=== PATIENT | male | born 1955 | race Caucasian/White ===

== ENCOUNTER 2020-03-24 13:36 | Outpatient (REF) | payer BC, SELFPAY ==
--- NOTE | 2020-03-24 14:02 | XR_ITS ---
EXAMINATION: XR THORACOLUMBAR SPINE CLINICAL INFORMATION: Back pain and scoliosis. COMPARISON: Cervical spine radiographs dated 05/28/2019. TECHNIQUE: Frontal, lateral and swimmer's views of the thoracic spine are submitted. FINDINGS: There is a marked lower thoracic dextroscoliosis. There is an age-indeterminate mild compression fracture of the T10 vertebral body. There is moderately severe disc space narrowing at C5-C6, and marked disc space narrowing is seen at C6-C7. There is disc space narrowing at T7-T8 and T10-T11. No acute fracture or spondylolisthesis is seen. There is multi-level cervical and thoracic spondylosis. The posterior elements are intact. The soft tissue planes are unremarkable. IMPRESSION: 1. There is a marked lower thoracic dextroscoliosis. 2. There is an age-indeterminate mild compression fracture of the T10 vertebral body. 3. There is multi-level cervical and thoracic degenerative disc disease and spondylosis, as above.
--- NOTE | 2020-03-24 14:04 | XR_ITS ---
EXAMINATION: XR LUMBOSACRAL SPINE WITH OBLIQUES CLINICAL INFORMATION: Low back pain. COMPARISON: None TECHNIQUE: AP, both oblique, and lateral views of the lumbar spine. Lateral view of the lumbosacral junction. Images were done (. FINDINGS: There is Roto dextroscoliosis dorsal lumbar spine. The vertebral heights and alignment is normal. There is moderate bridging osteophytes L2-L3, L3-L4 disc levels. No lytic process seen. There is no visible acute fracture seen. No lytic process. The soft tissues are normal. IMPRESSION: Degenerative disc changes with moderate ventral spondylosis. No visible acute fracture or dislocation.
== END 2020-03-24 13:37 | disposition home or self-care (01) ==
LOC: HO.XRAY 13:36
PROVIDERS: PCP Internal Medicine; Visit Provider Chiropractor
DX: G89.29 Other chronic pain (principal); M54.6 Pain in thoracic spine; M54.5 Low back pain; M41.9 Scoliosis, unspecified
CPT/HCPCS: 72070; 72110

== ENCOUNTER 2020-04-26 07:53 | Outpatient (REF) | payer BC, SELFPAY ==
[2020-04-26 09:02] LABS: MANUAL DIFF FLAG NO
[2020-04-26 09:08] LABS: Basophils Absolute Auto 0.1 X10*3/uL (0.0-0.2); Eosinophils Absolute Auto 0.3 X10*3/uL (0.0-0.4); Eosinophils Percent Auto 5.3 % (0-4); Hematocrit 44.7 % (42-52); Hemoglobin 14.6 g/dl (14.0-18.0); Imm Gran Abs Auto 0.01 X10*3/uL (0.00-0.03); Imm Gran Pct Auto 0.2 % (0.0-0.4); Lymphocytes Absolute Auto 0.9 X10*3/uL (1.2-4.9); Lymphocytes Percent Auto 17.6 % (20-40); Mean Corpuscular HGB Conc 32.7 g/dl (31.0-36.0); Mean Corpuscular Hemoglobin 30.1 pg (27.0-33.0); Mean Corpuscular Volume 92.2 fL (80-98); Mean Platelet Volume 9.8 fL (9.4-12.4); Monocytes Absolute Auto 0.4 X10*3/uL (0.1-1.2); Monocytes Percent Auto 8.1 % (2-11); Neutrophils Absolute Auto 3.3 X10*3/uL (2.0-8.3); Neutrophils Percent Auto 67.8 % (45-73); Platelet Count 207 X10*3/uL (160-400); Red Blood Count 4.85 X10*6/uL (4.60-5.80); Red Cell Distribution Width 13.3 % (11.0-16.0); White Blood Count 4.9 X10*3/uL (4.8-10.8)
[2020-04-26 09:36] LABS: Alanine Aminotransferase 23 U/L (0-40); Alkaline Phosphatase 86 U/L (39-117); Anion Gap 10 (12-20); Aspartate Amino Transferase 17 U/L (5-37); Blood Urea Nitrogen 16 mg/dL (9-16); Calcium 8.4 mg/dL (8.4-10.2); Carbon Dioxide 28 mmol/L (22-29); Chloride 107 mmol/L (96-108); Cholesterol 155 mg/dL; Estimated Glomerular Filt Rate > 60; Glucose Random 97 mg/dL (60-115); HDL Cholesterol 48 mg/dL; LDL Cholesterol Calculated 96 mg/dl; Potassium 4.3 mmol/l (3.3-5.1); Sodium 141 mmol/L (135-145); Total Protein 6.3 g/dL (6.5-8.0); Triglycerides 56 mg/dL
[2020-04-26 10:01] LABS: Free T4 (Free Thyroxine) 1.05 ng/dL (0.71-1.85); Thyroid Stimulating Hormone 2.16 mIU/mL (0.32-4.0)
[2020-04-26 10:03] LABS: Folate 11.3 ng/mL (> or = 4.0); Vitamin B12 342 pg/mL (200-900)
== END 2020-04-26 07:54 | disposition home or self-care (01) ==
LOC: HO.LAB 07:53
PROVIDERS: Visit Provider Internal Medicine
DX: I10 Essential (primary) hypertension (principal); E78.00 Pure hypercholesterolemia, unspecified
CPT/HCPCS: 36415; 80053; 80061; 82607; 82746; 84153; 84439; 84443; 85025

== ENCOUNTER 2020-08-03 23:04 | Emergency (ER) | payer BC, SELFPAY ==
--- NOTE | ~2020-08-03 | CT_ITS ---
EXAMINATION: CT ABDOMEN AND PELVIS WITHOUT CONTRAST CLINICAL INFORMATION: Left-sided flank pain COMPARISON: CT abdomen pelvis 09/03/2019 TECHNIQUE: Multidetector volumetric imaging was performed from the superior aspect of the liver through the pubic symphysis. Sagittal and coronal reformatted images were obtained on the technologist's workstation. This CT examination was performed using dose optimization techniques as appropriate, variously including the following: *Automated exposure control *Adjustment of mA and/or kV according to patient size (this includes techniques or standardized protocols for targeted exams where dose is matched to indication/reason for exam; i.e. extremities or head) *Use of iterative reconstruction technique DLP: 837 mGy-cm FINDINGS: LUNG BASES: The visualized lung bases are unremarkable. Small right paracardiac lymph node unchanged. LIVER, GALLBLADDER, AND BILIARY TREE: The liver is normal in size, shape, and attenuation. 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 No focal hepatic lesion or biliary ductal dilatation is present. The gallbladder is unremarkable with no evidence of radiopaque gallstones, gallbladder wall thickening, or obvious pericholecystic inflammatory changes. PANCREAS: Unremarkable. SPLEEN: Unremarkable. ADRENAL GLANDS: Unremarkable. KIDNEYS AND URETERS: The kidneys are normal in size, shape, and attenuation. Bilateral tiny punctate calcifications seen with a 3 mm calculus at the right lower pole and 4 barely perceptible even smaller calculi in the left kidney. No hydronephrosis, hydroureter, or ureteral calculi seen. No perinephric stranding. BLADDER: Unremarkable. GASTROINTESTINAL TRACT: A small hiatal hernia is present. The small and large bowel are unremarkable. The appendix is is not seen but there is no evidence of appendicitis.. ABDOMINAL WALL: No significant hernia is appreciated. Tiny bilateral fat-containing inguinal hernias are present. LYMPH NODES: No retroperitoneal lymphadenopathy. VASCULAR: Unremarkable. PELVIC VISCERA: BPH is present. OSSEOUS STRUCTURES: Biconvex thoracolumbar scoliosis is present with degenerative changes in the spine. CT/CT abdomen pelvis wo con IMPRESSION: 1. Bilateral nonobstructing intrarenal calculi 2. Redemonstration of extensive hepatic cystic disease 3. An acute finding to account for the patient's left-sided flank pain has not been found
--- NOTE | 2020-08-03 23:16 | ECG_ITS ---
Test Reason : ABD PAIN Blood Pressure : / mmHG Vent. Rate : 074 BPM Atrial Rate : 074 BPM P-R Int : 152 ms QRS Dur : 110 ms QT Int : 400 ms P-R-T Axes : 025 -46 001 degrees QTc Int : 444 ms Normal sinus rhythm Incomplete right bundle branch block Left anterior fascicular block T wave abnormality, consider anterior ischemia Abnormal ECG When compared with ECG of 17-JUN-2018 11:40, Premature ventricular complexes are no longer Present Referred By: Megan Greenfield Electronically Signed By:HAMIDA TURNER MD
[2020-08-03 23:18] VITALS: BP 147/73; PULSE 18; TEMP 36.9; O2SAT 98; BMI 30.8
--- NOTE | 2020-08-03 23:27 | ED.ABDPAIN ---
HPI - Abdominal Pain General Chief Complaint: Abdominal Pain Stated Complaint: LEFT FLANK PAIN Time Seen by Provider: 08/03/20 23:15 Source: patient Mode of arrival: EMS History of Present Illness HPI narrative: This is a 65-year-old male with history of renal colic who presents with onset of left flank pain radiating into the anterior abdomen that started approximately 3-4:00 p.m. this afternoon and is associated with nausea and dry heaves but denies any fevers, chills and was able to urinate in normal fashion just prior to arrival. Related Data Home Medications Medication Instructions Recorded Confirmed amlodipine 2.5 mg tablet 2.5 mg PO DAILY 05/08/20 cyclobenzaprine 10 mg tablet 10 mg PO TID 05/08/20 niacin 500 mg tablet 500 mg PO DAILY 05/08/20 omega-3 fatty acids 1,000 mg 1,000 mg PO DAILY 05/08/20 capsule potassium citrate 10 mEq (1,080 2,160 mg PO BID 05/08/20 mg) tablet,extended release vitamins A,C,M-zori-rmrwmy 14,320 1 cap PO ONCE cap 05/08/20 unit-226 mg-200 unit capsule Previous Rx's Medication Instructions Recorded atorvastatin 10 mg tablet 10 mg PO DAILY #30 tab 06/27/20 Allergies Allergy/AdvReac Type Severity Reaction Status Date / Time No Known Allergies Allergy Verified 05/04/20 07:48 [No Known Allergies*] Review of Systems Review of Systems Pertinent positives and negatives as stated in HPI 10 point review systems otherwise negative. Physical Exam Vital Signs: Vital Signs: Last Vital Signs Temp 98.5 F 08/03/20 23:18 Pulse 79 08/04/20 01:53 Resp 18 08/04/20 01:53 BP 142/75 H 08/04/20 01:53 Pulse Ox 98 08/04/20 01:53 Body Mass Index 30.8 VITAL SIGNS: Reviewed. GENERAL: Well developed, well nourished, in no acute distress. NOSE: Nares patent bilateral OROPHARYNX: no oral lesions noted, posterior pharynx clear NECK: Supple, no adenopathy LUNGS: Normal breath sounds. No adventitious sounds or accessory muscle use. SpO2<98> CARDIOVASCULAR: Regular rate and rhythm without noted murmurs, no JVD or lower extremity edema. ABDOMEN: Soft, non-tender, non-distended with bowel sounds. Left flank with mild tenderness on palpation but no CVA tenderness NEUROLOGIC: Alert and oriented x 4. Strength and sensation to light touch were grossly intact x 4. Course Course Course Narrative: This is a 65-year-old male with history and clinical presentation consistent with likely renal colic will evaluate for possible obstructive versus nonobstructive ureterolithiasis and rule out diverticulitis. Review of all investigations are negative for any acute findings to suggest diverticulitis, ureterolithiasis or other intra-abdominal pathologies. Urinalysis not supportive of infection. Patient was informed of all results and findings and does endorse that he has had good pain control with addition lidocaine patch. He will be discharged in stable condition. MDM - Abdominal Pain Lab Data Result diagrams: 08/03/20 23:45 08/03/20 23:45 Labs: Lab Results 08/03/20 08/03/20 08/04/20 Range/Units 23:45 23:45 01:51 WBC 6.1 (4.8-10.8) X10*3/uL RBC 4.52 L (4.60-5.80) X10*6/uL Hgb 13.4 L (14.0-18.0) g/dl Hct 42.1 (42-52) % MCV 93.1 (80-98) fL MCH 29.6 (27.0-33.0) pg MCHC 31.8 (31.0-36.0) g/dl RDW 13.7 (11.0-16.0) % Plt Count 186 (160-400) X10*3/uL MPV 9.6 (9.4-12.4) fL Immature Gran % (Auto) 0.2 (0.0-0.4) % Neut % (Auto) 76.4 H (45-73) % Lymph % (Auto) 11.7 L (20-40) % [place] % (Auto) 7.9 (2-11) % Eos % (Auto) 3.1 (0-4) % Baso % (Auto) 0.7 (0-2) % Lymph # (Auto) 0.7 L (1.2-4.9) X10*3/uL [place] # (Auto) 0.5 (0.1-1.2) X10*3/uL Eos # (Auto) 0.2 (0.0-0.4) X10*3/uL Baso # (Auto) 0.0 (0.0-0.2) X10*3/uL Abs Immat Gran (auto) 0.01 (0.00-0.03) X10*3/uL Absolute Neuts (auto) 4.6 (2.0-8.3) X10*3/uL Absolute Nucleated RBC 0.000 (0.0-0.012) X10*3/uL Nucleated RBC % (auto) 0.0 (0.0-0.2) /100WBC Sodium 144 (135-145) mmol/L Potassium 4.0 (3.3-5.1) mmol/L Chloride 111 H (96-108) mmol/L Carbon Dioxide 25 (22-29) mmol/L Anion Gap 12 (12-20) BUN 16 (9-16) mg/dL Creatinine 0.85 (0.5-1.4) mg/dL Estim Creat Clear Calc 113.8 Estimated GFR > 60 Random Glucose 116 H (60-115) mg/dL Calcium 8.7 (8.4-10.2) mg/dL Total Bilirubin 0.7 (0.0-1.0) mg/dL AST 14 (5-37) U/L ALT 19 (0-40) U/L Alkaline Phosphatase 77 (39-117) U/L Total Protein 6.0 L (6.5-8.0) g/dL Albumin 3.7 (3.5-5.0) g/dL Urine Color YELLOW Urine Appearance CLEAR Urine pH 6.5 (5.0-8.0) Ur Specific [place] 1.025 (1.005-1.025) Urine Protein NEG (NEG-TRACE) MG/DL Urine Glucose (UA) NEG (NEG) MG/DL Urine Ketones NEG (NEG) MG/DL Urine Blood NEG (NEG) Urine Nitrite NEG (NEG) Ur Leukocyte Esterase NEG (NEG) ECG Data Attestation: I personally reviewed and interpreted this ECG as follows: Prior ECG tracings: available for review (06/17/2018 no acute changes on comparison) Interpretation: Normal sinus rhythm, HR-74, no evidence of acute ischemia, incomplete right bundle-branch block is chronically stable, NC/QTC are within normal limits. Discharge Plan Discharge Clinical Impression: Acute left flank pain Patient Disposition: Home, Self-Care Instructions: Flank Pain (ED) Additional Instructions: 1. Resume all home medications as prescribed. 2. Utilize zmwm-bhm-hnaveat Tylenol and/or ibuprofen for additional symptom relief as well as a lidocaine patch (these are available in every [facility] and should be used as per instructions on the outside packaging). 3. Please call your primary care provider in the morning to set up a follow-up appointment. Do not hesitate to return to the emergency department should you experience any acute worsening of your symptoms to include shortness of breath, fevers/chills. Prescriptions: No Action atorvastatin 10 mg tablet 10 mg PO DAILY Qty: 30 RF: 5 potassium citrate [Urocit-K 10] 10 mEq (1,080 mg) tablet extended release 2,160 mg PO BID RF: 0 amlodipine 2.5 mg tablet 2.5 mg PO DAILY RF: 0 niacin 500 mg tablet 500 mg PO DAILY RF: 0 omega-3 fatty acids [Fish Oil Concentrate] 1,000 mg capsule 1,000 mg PO DAILY RF: 0 PreserVision AREDS 14,320-226-200 zrqk-ej-vwop capsule 1 cap PO ONCE RF: 0 cyclobenzaprine 10 mg tablet 10 mg PO TID RF: 0 Referrals: Po,Bhakti Vaughan MD [Primary Care Provider] - 2 days (Re-evaluate and manage left flank pain with negative workup in the emergency department for evidence of UTI, renal colic, diverticulitis.) [facility] Past Medical History Source: nursing notes reviewed Medical History GERD (gastroesophageal reflux disease) History of kidney stones Hypercholesterolemia Hypertension Obesity Obstructive sleep apnea Polycystic liver disease Tubular adenoma of colon Surgical History History of lithotripsy History of removal of cyst History of thyroidectomy Family History Family History Father Medical history unknown Mother Medical history unknown Social History Social History Alcohol intake: former Smoking Status: Never smoker Use of substances other than those prescribed or required for medical reasons: No Advance Directives: No
[2020-08-03 23:49] VITALS: RESP 18
[2020-08-03] MEDS: fentaNYL citrate/PF 100 MCG/2 ML VIAL 25 MCG IVPUSH (23:49)
[2020-08-03 23:55] LABS: Basophils Percent Auto 0.7 % (0-2); Eosinophils Absolute Auto 0.2 X10*3/uL (0.0-0.4); Eosinophils Percent Auto 3.1 % (0-4); Hematocrit 42.1 % (42-52); Hemoglobin 13.4 g/dl (14.0-18.0); Imm Gran Abs Auto 0.01 X10*3/uL (0.00-0.03); Imm Gran Pct Auto 0.2 % (0.0-0.4); Lymphocytes Absolute Auto 0.7 X10*3/uL (1.2-4.9); Lymphocytes Percent Auto 11.7 % (20-40); MANUAL DIFF FLAG NO; Mean Corpuscular HGB Conc 31.8 g/dl (31.0-36.0); Mean Corpuscular Hemoglobin 29.6 pg (27.0-33.0); Mean Corpuscular Volume 93.1 fL (80-98); Mean Platelet Volume 9.6 fL (9.4-12.4); Monocytes Absolute Auto 0.5 X10*3/uL (0.1-1.2); Monocytes Percent Auto 7.9 % (2-11); Neutrophils Absolute Auto 4.6 X10*3/uL (2.0-8.3); Neutrophils Percent Auto 76.4 % (45-73); Platelet Count 186 X10*3/uL (160-400); Red Blood Count 4.52 X10*6/uL (4.60-5.80); Red Cell Distribution Width 13.7 % (11.0-16.0); White Blood Count 6.1 X10*3/uL (4.8-10.8)
[2020-08-04] VITALS: RESP 18
[2020-08-04 00:22] VITALS: BP 140/71; PULSE 74; RESP 18; O2SAT 96
[2020-08-04 00:23] LABS: Alanine Aminotransferase 19 U/L (0-40); Albumin Level 3.7 g/dL (3.5-5.0); Alkaline Phosphatase 77 U/L (39-117); Anion Gap 12 (12-20); Aspartate Amino Transferase 14 U/L (5-37); Bilirubin Total 0.7 mg/dL (0.0-1.0); Blood Urea Nitrogen 16 mg/dL (9-16); Calcium 8.7 mg/dL (8.4-10.2); Carbon Dioxide 25 mmol/L (22-29); Chloride 111 mmol/L (96-108); Creatinine Clr Calc Pharmacy 113.8; Estimated Glomerular Filt Rate > 60; Glucose Random 116 mg/dL (60-115); Sodium 144 mmol/L (135-145)
[2020-08-04 01:53] VITALS: BP 142/75; PULSE 79; RESP 18; O2SAT 98
[2020-08-04 02:13] LABS: Glucose Urine UA NEG (NEG); Leukocyte Esterase Urine NEG (NEG); Nitrite Urine NEG (NEG); PH 6.5 (5.0-8.0); Specific Gravity - Urine 1.025 (1.005-1.025); Urine Blood NEG (NEG); Urine Ketones NEG (NEG); Urine Protein NEG (NEG-TRACE)
[2020-08-04 02:15] LABS: Appearance Urine CLEAR; Color Urine YELLOW
[2020-08-04] MEDS: Lidocaine 4 % Patch ADH..PATCH 1 PATCH TRANSDERMA (03:03)
== END 2020-08-04 03:56 | disposition home or self-care (01) ==
PROVIDERS: Emergency Provider Student in an Organized Health Care Education/Training Program; PCP Internal Medicine
DX: R10.9 Unspecified abdominal pain (principal); Z79.899 Other long term (current) drug therapy
CPT/HCPCS: 36415; 74176; 80053; 81003; 85025; 93005; 96374; 96375; 99284; J3010

== ENCOUNTER 2020-08-04 10:59 | Outpatient (REF) | payer BC, SELFPAY ==
--- NOTE | ~2020-08-04 | XR_ITS ---
EXAMINATION: XR HIP, LEFT CLINICAL INFORMATION: Pain in left hip COMPARISON: None TECHNIQUE: Two views of the left hip. FINDINGS: Bone alignment is normal. No fracture or dislocation is seen. There is mild arthritis at the left hip joint with joint space narrowing and osteophyte formation. The right hip is unremarkable. There are degenerative changes of the visualized lower lumbar spine. XR/XR hip LT w PEL1V IMPRESSION: Mild left hip arthritis.
== END 2020-08-04 11:00 | disposition home or self-care (01) ==
LOC: HO.HMGCX 10:59
PROVIDERS: PCP Internal Medicine; Visit Provider Nurse Practitioner Family
DX: M25.552 Pain in left hip (principal)
CPT/HCPCS: 73502

== ENCOUNTER 2020-09-04 14:16 | Outpatient (REF) | payer BC, SELFPAY ==
[2020-09-04 15:15] LABS: MANUAL DIFF FLAG NO
[2020-09-04 15:22] LABS: Basophils Absolute Auto 0.1 X10*3/uL (0.0-0.2); Eosinophils Absolute Auto 0.2 X10*3/uL (0.0-0.4); Eosinophils Percent Auto 4.5 % (0-4); Hematocrit 44.7 % (42-52); Hemoglobin 14.2 g/dl (14.0-18.0); Imm Gran Abs Auto 0.01 X10*3/uL (0.00-0.03); Imm Gran Pct Auto 0.2 % (0.0-0.4); Immature Retic Fraction 7.9 % (2.3-13.4); Lymphocytes Absolute Auto 0.8 X10*3/uL (1.2-4.9); Lymphocytes Percent Auto 16.1 % (20-40); Mean Corpuscular HGB Conc 31.8 g/dl (31.0-36.0); Mean Corpuscular Hemoglobin 29.8 pg (27.0-33.0); Mean Corpuscular Volume 93.7 fL (80-98); Mean Platelet Volume 9.6 fL (9.4-12.4); Monocytes Absolute Auto 0.5 X10*3/uL (0.1-1.2); Monocytes Percent Auto 8.8 % (2-11); Neutrophils Absolute Auto 3.6 X10*3/uL (2.0-8.3); Neutrophils Percent Auto 69.4 % (45-73); Platelet Count 192 X10*3/uL (160-400); Red Blood Count 4.77 X10*6/uL (4.60-5.80); Red Cell Distribution Width 13.7 % (11.0-16.0); Retic HGB Equivalent 33.6 pg (30.0-35.0); Reticulocyte Percent 1.3 % (0.5-1.8); Reticulocytes Absolute 0.061 X10*6/uL (0.026-0.095); White Blood Count 5.1 X10*3/uL (4.8-10.8)
[2020-09-04 15:47] LABS: Iron 67 mcg/dL (45-160); Percent Iron Saturation 20 % (15-50); Total Iron Binding Capacity 330 mcg/dL (228-428); Unsaturated Iron Binding 263 ug/dL
[2020-09-04 16:10] LABS: Ferritin 139 ng/mL (20-250)
[2020-09-04 16:22] LABS: Folate 12.4 ng/mL (> or = 4.0); Vitamin B12 259 pg/mL (200-900)
== END 2020-09-04 14:17 | disposition home or self-care (01) ==
LOC: HO.LAB 14:16
PROVIDERS: PCP Internal Medicine; Visit Provider Internal Medicine
DX: D64.9 Anemia, unspecified (principal); Z87.442 Personal history of urinary calculi
CPT/HCPCS: 36415; 82607; 82728; 82746; 83540; 85025; 85045

== ENCOUNTER 2020-10-06 14:28 | Outpatient (REF) | payer BC, SELFPAY ==
[2020-10-06 15:08] LABS: MANUAL DIFF FLAG NO
[2020-10-06 15:15] LABS: Basophils Absolute Auto 0.1 X10*3/uL (0.0-0.2); Eosinophils Absolute Auto 0.2 X10*3/uL (0.0-0.4); Eosinophils Percent Auto 3.9 % (0-4); Hematocrit 45.7 % (42-52); Hemoglobin 14.7 g/dl (14.0-18.0); Imm Gran Abs Auto 0.02 X10*3/uL (0.00-0.03); Imm Gran Pct Auto 0.3 % (0.0-0.4); Lymphocytes Absolute Auto 0.9 X10*3/uL (1.2-4.9); Lymphocytes Percent Auto 14.5 % (20-40); Mean Corpuscular HGB Conc 32.2 g/dl (31.0-36.0); Mean Corpuscular Hemoglobin 29.9 pg (27.0-33.0); Mean Corpuscular Volume 92.9 fL (80-98); Mean Platelet Volume 9.8 fL (9.4-12.4); Monocytes Absolute Auto 0.5 X10*3/uL (0.1-1.2); Monocytes Percent Auto 7.6 % (2-11); Neutrophils Absolute Auto 4.5 X10*3/uL (2.0-8.3); Neutrophils Percent Auto 72.7 % (45-73); Platelet Count 203 X10*3/uL (160-400); Red Blood Count 4.92 X10*6/uL (4.60-5.80); Red Cell Distribution Width 13.8 % (11.0-16.0); White Blood Count 6.2 X10*3/uL (4.8-10.8)
[2020-10-06 15:31] LABS: Alanine Aminotransferase 23 U/L (0-40); Albumin Level 4.1 g/dL (3.5-5.0); Alkaline Phosphatase 91 U/L (39-117); Aspartate Amino Transferase 15 U/L (5-37); Bilirubin Direct 0.4 mg/dL (0.0-0.5); Bilirubin Total 0.9 mg/dL (0.0-1.0); Total Protein 6.6 g/dL (6.5-8.0)
== END 2020-10-06 14:29 | disposition home or self-care (01) ==
LOC: HO.LAB 14:28
PROVIDERS: PCP Internal Medicine; Visit Provider Physician Assistant Medical
DX: B35.3 Tinea pedis (principal); B35.4 Tinea corporis
CPT/HCPCS: 36415; 80076; 85025

== ENCOUNTER → 2020-11-14 15:17 | Outpatient (BNVA) | payer BC, SELFPAY | PROVIDERS: PCP Internal Medicine; Visit Provider Urology ==

== ENCOUNTER 2021-01-07 03:38 | Emergency (ER) | payer OTHER, SELFPAY ==
--- NOTE | ~2021-01-07 | CT_ITS ---
EXAMINATION: CT ABDOMEN AND PELVIS WITHOUT CONTRAST CLINICAL INFORMATION: Flank pain COMPARISON: 08/04/2020 TECHNIQUE: Multidetector volumetric imaging was performed from the superior aspect of the liver through the pubic symphysis. Sagittal and coronal reformatted images were obtained on the technologist's workstation. This CT examination was performed using dose optimization techniques as appropriate, variously including the following: *Automated exposure control *Adjustment of mA and/or kV according to patient size (this includes techniques or standardized protocols for targeted exams where dose is matched to indication/reason for exam; i.e. extremities or head) *Use of iterative reconstruction technique DLP: 851 mGy-cm FINDINGS: LUNG BASES: Redemonstrated bilateral pleural calcifications. LIVER, GALLBLADDER, AND BILIARY TREE: The liver is normal in size, shape, and attenuation. Numerous hepatic cysts redemonstrated. No biliary ductal dilatation is present. The gallbladder is unremarkable. PANCREAS: Unremarkable. SPLEEN: Unremarkable. ADRENAL GLANDS: Unremarkable. KIDNEYS AND URETERS: There is a 2 mm calculus in the distal left ureter with mild hydronephrosis. There are scattered tiny calculi within each kidney measuring up to 3 mm on the right. No right hydronephrosis. Small cyst noted in the lower right kidney. BLADDER: Minimally distended and grossly unremarkable. GASTROINTESTINAL TRACT: The small and large bowel are unremarkable. No free fluid or free air is seen. ABDOMINAL WALL: No significant hernia is appreciated. LYMPH NODES: Normal. VASCULAR: Scattered atherosclerotic calcifications. PELVIC VISCERA: Unremarkable. OSSEOUS STRUCTURES: There are degenerative changes in the spine and a dextroscoliosis of the upper lumbar spine. CT/CT abdomen pelvis wo con IMPRESSION: Distal left ureteral calculus measuring 2 mm with mild hydronephrosis. Scattered bilateral renal calculi.
--- NOTE | 2021-01-07 04:18 | ED.ABDPAIN ---
HPI - Abdominal Pain General Chief Complaint: Abdominal Pain Stated Complaint: L FLANK PAIN W/ NAUSEA, HX OF KIDNEY STONE Time Seen by Provider: 01/07/21 04:18 Source: patient Mode of arrival: EMS History of Present Illness HPI narrative: 65-year-old male with history of kidney stones comes in with acute onset of left flank pain radiating into anterior abdomen started approximately 2:00 a.m. this morning and was associated with nausea and vomiting but denies any fever chills. This is also been associated with difficulties with urination but denies any pain/burning. Related Data Home Medications Medication Instructions Recorded Confirmed amlodipine 2.5 mg tablet 2.5 mg PO DAILY 05/08/20 09/04/20 niacin 500 mg tablet 500 mg PO DAILY 05/08/20 09/04/20 omega-3 fatty acids 1,000 mg 1,000 mg PO DAILY 05/08/20 09/04/20 capsule potassium citrate 10 mEq (1,080 2,160 mg PO BID 05/08/20 09/04/20 mg) tablet,extended release vitamins A,C,N-qjig-uyatft 14,320 1 cap PO ONCE cap 05/08/20 09/04/20 unit-226 mg-200 unit capsule ciclopirox 0.77 % topical cream appl TOPICAL 09/04/20 09/04/20 clobetasol 0.05 % topical cream TOPICAL 09/04/20 09/04/20 milk thistle seed extract 175 mg 175 mg PO BID 09/04/20 09/04/20 capsule griseofulvin microsize 500 mg 500 mg PO DAILY 11/14/20 tablet Previous Rx's Medication Instructions Recorded cyclobenzaprine 10 mg tablet 10 mg PO TID PRN #10 tab 08/04/20 lidocaine 4 % topical patch 1 patch TOPICAL DAILY PRN #15 ea 08/04/20 pyridoxine (vitamin B6) 100 mg 100 mg PO DAILY 90 Days #90 tab 11/14/20 tablet atorvastatin 10 mg tablet 10 mg PO DAILY 90 Days #90 tab 01/04/21 tamsulosin [Flomax] 0.4 mg PO BEDTIME 4 Days #4 cap 01/07/21 Allergies Allergy/AdvReac Type Severity Reaction Status Date / Time No Known Allergies Allergy Verified 11/14/20 15:29 [No Known Allergies*] Review of Systems Review of Systems Pertinent positives and negatives as stated in HPI 10 point review of systems is otherwise negative. Physical Exam Vital Signs: Vital Signs: Last Vital Signs Temp 98.3 F 01/07/21 05:00 Pulse 74 01/07/21 05:00 Resp 20 01/07/21 05:00 BP 148/61 H 01/07/21 05:00 Pulse Ox 98 01/07/21 05:00 Body Mass Index 29.9 VITAL SIGNS: Reviewed. GENERAL: Well developed, well nourished, in no acute distress. HEAD: Normocephalic/atraumatic EYES: PERRLA, EOMI EARS: Ext canals without abnormality OROPHARYNX: no oral lesions noted, posterior pharynx clear LUNGS: Normal breath sounds. No adventitious sounds or accessory muscle use. SpO2<98> CARDIOVASCULAR: Regular rate and rhythm without noted murmurs, no JVD or lower extremity edema. ABDOMEN: Soft, left flank/lower abdomen pain, non-distended with bowel sounds. SKIN: Inspection of the skin reveals no rashes NEUROLOGIC: Alert and oriented x 4. Strength and sensation to light touch were grossly intact x 4. Course Course Course Narrative: 65-year-old male with history and clinical presentation most consistent with renal colic and doubt pyelonephritis or UTI at this point. Review of all investigations consistent with ureterolithiasis, patient provided with pain medication and antiemetics as well as IV fluids and on re-evaluation is resting comfortably and will be discharged home. MDM - Abdominal Pain Lab Data Result diagrams: 01/07/21 04:29 01/07/21 04:29 Labs: Lab Results 01/07/21 01/07/21 Range/Units 04:29 04:29 WBC 5.0 (4.8-10.8) X10*3/uL RBC 4.87 (4.60-5.80) X10*6/uL Hgb 14.7 (14.0-18.0) g/dl Hct 45.1 (42-52) % MCV 92.6 (80-98) fL MCH 30.2 (27.0-33.0) pg MCHC 32.6 (31.0-36.0) g/dl RDW 13.9 (11.0-16.0) % Plt Count 167 (160-400) X10*3/uL MPV 9.9 (9.4-12.4) fL Immature Gran % (Auto) 0.4 (0.0-0.4) % Neut % (Auto) 76.3 H (45-73) % Lymph % (Auto) 10.9 L (20-40) % [place] % (Auto) 7.8 (2-11) % Eos % (Auto) 4.0 (0-4) % Baso % (Auto) 0.6 (0-2) % Lymph # (Auto) 0.5 L (1.2-4.9) X10*3/uL [place] # (Auto) 0.4 (0.1-1.2) X10*3/uL Eos # (Auto) 0.2 (0.0-0.4) X10*3/uL Baso # (Auto) 0.0 (0.0-0.2) X10*3/uL Abs Immat Gran (auto) 0.02 (0.00-0.03) X10*3/uL Absolute Neuts (auto) 3.8 (2.0-8.3) X10*3/uL Absolute Nucleated RBC 0.000 (0.0-0.012) X10*3/uL Nucleated RBC % (auto) 0.0 (0.0-0.2) /100WBC Sodium 141 (135-145) mmol/L Potassium 4.6 (3.3-5.1) mmol/L Chloride 107 (96-108) mmol/L Carbon Dioxide 25 (22-29) mmol/L Anion Gap 14 (12-20) BUN 18 H (9-16) mg/dL Creatinine 1.07 (0.5-1.4) mg/dL Estim Creat Clear Calc TNP Estimated GFR > 60 Random Glucose 121 H (60-115) mg/dL Calcium 9.1 (8.4-10.2) mg/dL Total Bilirubin 1.0 (0.0-1.0) mg/dL Direct Bilirubin 0.4 (0.0-0.5) mg/dL AST 19 (5-37) U/L ALT 26 (0-40) U/L Alkaline Phosphatase 82 (39-117) U/L Total Protein 6.7 (6.5-8.0) g/dL Albumin 4.1 (3.5-5.0) g/dL Lipase 49 (8-78) U/L Discharge Plan Discharge Clinical Impression: Ureterolithiasis, Renal colic Patient Disposition: Home, Self-Care Instructions: Renal Colic (ED), Ureteral Stones (ED) Additional Instructions: 1. Increase fluid hydration especially with water and avoid caffeinated/carbonated beverages. 2. Resume all home medications as prescribed. Recommend using snkf-rmd-dlbuidx Tylenol/ibuprofen for additional pain relief. 3. Follow-up with your primary care provider as well as following up with Urology, you have a referral provided below. Return to the ER for any acute worsening of symptoms. Prescriptions: New tamsulosin [Flomax] 0.4 mg capsule 0.4 mg PO BEDTIME 4 Days Qty: 4 RF: 0 No Action atorvastatin 10 mg tablet 10 mg PO DAILY 90 Days Qty: 90 RF: 1 potassium citrate [Urocit-K 10] 10 mEq (1,080 mg) tablet extended release 2,160 mg PO BID RF: 0 amlodipine 2.5 mg tablet 2.5 mg PO DAILY RF: 0 niacin 500 mg tablet 500 mg PO DAILY RF: 0 omega-3 fatty acids [Fish Oil Concentrate] 1,000 mg capsule 1,000 mg PO DAILY RF: 0 PreserVision AREDS 14,320-226-200 twgl-vx-qevc capsule 1 cap PO ONCE RF: 0 ketorolac 60 mg/2 mL solution 60 mg IM ONCE Qty: 2 RF: 0 cyclobenzaprine 10 mg tablet 10 mg PO TID PRN (Reason: muscle spasm) Qty: 10 RF: 0 lidocaine 4 % adhesive patch,medicated 1 patch topical DAILY PRN (Reason: pain) Qty: 15 RF: 0 clobetasol 0.05 % cream topical RF: 0 ciclopirox 0.77 % cream topical RF: 0 milk thistle seed extract 175 mg capsule 175 mg PO BID RF: 0 pyridoxine (vitamin B6) 100 mg tablet 100 mg PO DAILY 90 Days Qty: 90 RF: 1 Referrals: Physician,Unknown [Primary Care Provider] - 2 days Derek Darden MD [Physician] - 2 days (Evaluation and treatment as appropriate for left renal colic.) [facility] Past Medical History Source: nursing notes reviewed Medical History GERD (gastroesophageal reflux disease) History of kidney stones Hypercholesterolemia Hypertension Obesity Obstructive sleep apnea Polycystic liver disease Tubular adenoma of colon Surgical History History of lithotripsy History of removal of cyst History of thyroidectomy Family History Family History Father Medical history unknown Mother Medical history unknown Social History Social History Alcohol intake: former Advance Directives: No Advance Directives Information Provided: No
[2021-01-07] MEDS: ondansetron HCL 4 MG/2 ML VIAL IVPUSH (04:35)
[2021-01-07 04:36] LABS: Basophils Percent Auto 0.6 % (0-2); Eosinophils Absolute Auto 0.2 X10*3/uL (0.0-0.4); Hematocrit 45.1 % (42-52); Hemoglobin 14.7 g/dl (14.0-18.0); Imm Gran Abs Auto 0.02 X10*3/uL (0.00-0.03); Imm Gran Pct Auto 0.4 % (0.0-0.4); Lymphocytes Absolute Auto 0.5 X10*3/uL (1.2-4.9); Lymphocytes Percent Auto 10.9 % (20-40); MANUAL DIFF FLAG NO; Mean Corpuscular HGB Conc 32.6 g/dl (31.0-36.0); Mean Corpuscular Hemoglobin 30.2 pg (27.0-33.0); Mean Corpuscular Volume 92.6 fL (80-98); Mean Platelet Volume 9.9 fL (9.4-12.4); Monocytes Absolute Auto 0.4 X10*3/uL (0.1-1.2); Monocytes Percent Auto 7.8 % (2-11); Neutrophils Absolute Auto 3.8 X10*3/uL (2.0-8.3); Neutrophils Percent Auto 76.3 % (45-73); Platelet Count 167 X10*3/uL (160-400); Red Blood Count 4.87 X10*6/uL (4.60-5.80); Red Cell Distribution Width 13.9 % (11.0-16.0)
[2021-01-07] MEDS: 0.9 % Sodium Chloride 1,000 ML 999 ML IV (04:36)
[2021-01-07] MEDS: fentaNYL citrate/PF 100 MCG/2 ML VIAL 25 MCG IVPUSH (04:57)
[2021-01-07] MEDS: Ketorolac Tromethamine 15 MG/ML VIAL IVPUSH (04:58)
[2021-01-07 05:00] VITALS: BP 148/61; BP 150/90; PULSE 74; PULSE 98; RESP 20; TEMP 36.8; O2SAT 98; BMI 29.9
[2021-01-07 05:02] LABS: Alanine Aminotransferase 26 U/L (0-40); Albumin Level 4.1 g/dL (3.5-5.0); Alkaline Phosphatase 82 U/L (39-117); Anion Gap 14 (12-20); Aspartate Amino Transferase 19 U/L (5-37); Bilirubin Direct 0.4 mg/dL (0.0-0.5); Blood Urea Nitrogen 18 mg/dL (9-16); Calcium 9.1 mg/dL (8.4-10.2); Carbon Dioxide 25 mmol/L (22-29); Chloride 107 mmol/L (96-108); Estimated Glomerular Filt Rate > 60; Glucose Random 121 mg/dL (60-115); Lipase 49 U/L (8-78); Potassium 4.6 mmol/L (3.3-5.1); Sodium 141 mmol/L (135-145); Total Protein 6.7 g/dL (6.5-8.0)
== END 2021-01-07 07:18 | disposition home or self-care (01) ==
PROVIDERS: Emergency Provider Student in an Organized Health Care Education/Training Program
DX: N20.1 Calculus of ureter (principal); N23 Unspecified renal colic; R33.9 Retention of urine, unspecified; Z79.899 Other long term (current) drug therapy
CPT/HCPCS: 36415; 74176; 80053; 80076; 83690; 85025; 99283; J1885; J2405; J3010

== ENCOUNTER 2021-02-05 11:23 | Day surgery (SDC) | payer BC, SELFPAY ==
[2021-02-05] VITALS (9 sets, daily range): BP systolic 103–143; BP diastolic 65–77; PULSE 71–86; RESP 14–18; TEMP 36.3–36.9; O2SAT 94–99; BMI 30.2
--- NOTE | 2021-02-05 12:25 | HO.ANESPROP2 ---
[facility] Active Problems Active Problems: All Active Problems (Updated 01/08/21 @ 00:01 by Ian Catalan) Bilateral nephrolithiasis (Acute) Anemia (Acute) Liver disease (Acute) Hip pain (Acute) Trochanteric bursitis of left hip (Acute) Impaired glucose tolerance (Acute) Hypertension (Acute) Obstructive sleep apnea (Acute) History of kidney stones (Acute) Hypercholesterolemia (Acute) Obesity (Acute) GERD (gastroesophageal reflux disease) (Acute) Past Medical History Medical History GERD (gastroesophageal reflux disease) History of kidney stones Hypercholesterolemia Hypertension Obesity Obstructive sleep apnea Polycystic liver disease Tubular adenoma of colon Functional capacity: independent ambulation Family History Family History Father Medical history unknown Mother Medical history unknown Family history of problems with anesthesia: No Surgical History Surgical History History of lithotripsy History of removal of cyst History of thyroidectomy History of Problems with Anesthesia: No Social History Social History Alcohol intake: former Patient Tobacco Use Status: Never used Tobacco Use of substances other than those prescribed or required for medical reasons: No Have you been hit, kicked, punched, or otherwise hurt by someone within the past year? If so, by whom?: No Are you DNR?: No Advance Directives: No Advance Directives Information Provided: No Recently lost weight without trying: No Nutrition Risks: No Nutritional Risk Meds Allergies Allergy/AdvReac Type Severity Reaction Status Date / Time No Known Allergies Allergy Verified 11/14/20 15:29 [No Known Allergies*] Home Medications Medication Instructions Recorded Confirmed Last Taken Type amlodipine 2.5 mg tablet 2.5 mg PO DAILY 05/08/20 09/04/20 Unknown History niacin 500 mg tablet 500 mg PO DAILY 05/08/20 09/04/20 Unknown History omega-3 fatty acids 1,000 mg 1,000 mg PO DAILY 05/08/20 09/04/20 Unknown History capsule (Fish Oil Concentrate) potassium citrate 10 mEq (1,080 2,160 mg PO BID 05/08/20 09/04/20 Unknown History mg) tablet,extended release (Urocit-K 10) vitamins A,C,I-jlvv-uwxpjv 14,320 1 cap PO ONCE cap 05/08/20 09/04/20 Unknown History unit-226 mg-200 unit capsule (PreserVision AREDS) ciclopirox 0.77 % topical cream appl TOPICAL 09/04/20 09/04/20 Unknown History clobetasol 0.05 % topical cream TOPICAL 09/04/20 09/04/20 Unknown History milk thistle seed extract 175 mg 175 mg PO BID 09/04/20 09/04/20 Unknown History capsule griseofulvin microsize 500 mg 500 mg PO DAILY 11/14/20 Unknown History tablet Exam Exam Date and Time: February 05, 2021 1225 Height,Weight and Vital Signs: Height 6 ft 2 in Weight 106.594 kg Last Vital Signs Temp 97.3 F 02/05/21 12:03 Pulse 71 02/05/21 12:03 BP 143/65 H 02/05/21 12:03 Pulse Ox 99 02/05/21 12:03 Airway TM Dist: >3cm Neck ROM: Full Heart: RRR Lungs: CTA Assessment and Plan Final Anesthetic Review Family History of Problems with Anesthesia: No History of Problems with Anesthesia: No
[2021-02-05] MEDS: Lactated Ringers 1,000 ML 50 ML IVCONT (12:48)
--- NOTE | 2021-02-05 13:29 | MHC.SHP ---
Pre-Procedural Eval Section A Date of Service: 02/05/21 Section B Chief Complaint: Calculus of Kidney Details of Present Illness: Had been seen in October. At that point in time diagnosed with small stones bilateral. Re-presented to emergency room with pain on left side. Imaging shows distal stone. Based on review last week decision made to proceed with stone intervention. Based on stone location ureteroscopy with laser lithotripsy and stent placement was recommended. Right-sided stones may benefit from ESWL Present Medications: see Short Stay Collaborative assessment Medical History: No relevant PMH History of Previous Operations: No relevant previous surgery Allergies: Allergies Allergy/AdvReac Type Severity Reaction Status Date / Time No Known Allergies Allergy Verified 11/14/20 15:29 [No Known Allergies*] Review of Systems Sugical H&P ROS: Negative: Constitution, Cardiovascular, Respiratory, Neurological, Psychiatric, Hem-Onc, Allergic/Immunologic, Gastrointestinal, Genitourinary, Musculoskeletal, Integumentary, Endocrine and Eyes/Ears/Nose/Throat Exam Surgical H&P Exam: Normal: HEENT, Normal: Heart, Normal: Lungs, Normal: Extremities, Normal: Abdomen, Normal: Skin and Normal: Neurological Plan Diagnosis/Plan: Unchanged (Cystoscopy, left retrograde, left ureteroscopy laser lithotripsy stent placement) I have reviewed the history and physical and performed a pertinent physical examination on my patient. No changes have occurred unless specified.
[2021-02-05] MEDS: levoFLOXacin 500 MG TABLET PO (13:38)
--- NOTE | 2021-02-05 14:36 | P.OP_ITS ---
Operative Note Operative Note Date of Service: 02/05/21 Narrative: PreOperative Diagnosis: Left distal ureteric stone Post Operative Diagnosis: Stone had passed Procedure: - cystoscopy, left retrograde - left ureteroscopy - left stent placement Surgeon: Dr Derek Darden Anesthesia: General Indications for procedure: This is a 65-year-old male. Prior imaging showed small stones bilateral. Presented in mid December to emergency room and imaging showed distal left ureteric stone. Medications given to allow medical expulsion therapy. On follow-up still with pain on distal left side. Inconclusive as to stone passage. Recommend ureteroscopy given stone location. Understands stent placement is a component of this procedure. Procedure: After informed consent was verified patient was brought to the operating placed in supine position. Anesthesia was administered per protocol. Patient was placed in modified dorsal lithotomy position and prepped and draped in a sterile fashion. Safety pause time-out and side of surgery confirmed. Antibiotics confirmed. Twenty-two Citizen [place] cystoscope inserted per urethra. Bladder examined in its entirety. Left ureteric orifice was cannulated and retrograde examination was performed. No filling defects seen. Sensor wire placed. Rigid ureteroscopy performed. No stone encountered over the distal 2/3 of ureter there was examined. There was evidence for edema is ureteric orifice consistent with recent stone passage. Decision made to place a stent Six Citizen [place] by 28 cm stent backloaded onto the cystoscope. Cystoscope was placed into bladder. Stent was advanced in good coil seen within the renal pelvis and in the bladder. Bladder emptied He tolerated procedure well was extubated in operating room transferred in stable condition to the recovery area Pathology: none Drains: 6 Citizen [place] by 28 cm double-J left stent
[2021-02-05] MEDS: Acetaminophen 325 MG TABLET 650 MG PO (14:39)
[2021-02-05] MEDS: oxyCODONE HCl Immed Release 5 MG TABLET PO (14:40)
[2021-02-05] MEDS: Phenazopyridine HCL 100 MG TABLET PO (14:40)
[2021-02-05] MEDS: fentaNYL citrate/PF 100 MCG/2 ML VIAL 25 MCG IVPUSH ×2 (14:43→14:50)
--- NOTE | 2021-02-14 09:17 | W.PM.OPN ---
Operative Note Operative Note Date of Service: 02/05/21 Narrative: PreOperative Diagnosis: Distal left ureteric stone Post Operative Diagnosis: Distal left ureteric stone Procedure: - left cystoscopy, retrograde - dilatation of ureteric orifice under fluoroscopy - left ureteroscopy, laser lithotripsy, stone basketing - stent placement Surgeon: Dr Derek Darden Anesthesia: General Indications for procedure: Known stone former. Imaging from last month showing distal left ureteric stone. Did not pass with medical expulsion therapy. Here for definitive therapy Procedure: After informed consent was verified patient was brought to the operating placed in supine position. Anesthesia was administered per protocol. Patient was placed in modified dorsal lithotomy position and prepped and draped in a sterile fashion. Safety pause time-out and side of surgery confirmed. Antibiotics confirmed. Twenty-two [place] cystoscope placed per urethra. No abnormality noted of anterior posterior urethra. Both ureteric orifices normal position the bladder. Large median lobe seen on prostate. Retrograde examination performed on left side. No clear evidence of filling defect in ureter or kidney. Sensor guidewire placed Cystoscope removed. Dinorah dilator used for dilatation under fluoroscopy. Rigid ureteroscopy performed. Small stone seen in distal portion of ureter. Stone broken into small fragments using laser Stone fragments too small to be basketed Ureteral scope removed. One wire backloaded through a cystoscope. Six Vietnamese by 24 cm double-J stent placed without difficulty He tolerated procedure well was extubated in operating room transferred in stable condition to the recovery area. Pathology: None Drains: 6 Vietnamese by 24 cm double-J ureteric stent left side
== END 2021-02-05 16:55 | disposition home or self-care (01) ==
PROVIDERS: PCP Urology; Visit Provider Urology
PROC: (CPT 52356; principal; 2021-02-05 13:40)
DX: N20.1 Calculus of ureter (principal); Z87.442 Personal history of urinary calculi; I10 Essential (primary) hypertension; G47.33 Obstructive sleep apnea (adult) (pediatric); D64.9 Anemia, unspecified; K21.9 Gastro-esophageal reflux disease without esophagitis; Z79.899 Other long term (current) drug therapy
CPT/HCPCS: 52356; 52352; C1769; C2617; J1100; J1885; J2250; J2405; J3010; Q9967

== ENCOUNTER → 2021-02-14 08:48 | Outpatient (BNVA) | payer BC, SELFPAY | PROVIDERS: Visit Provider Urology | DX: Z46.6 Encounter for fitting and adjustment of urinary device (principal); N20.0 Calculus of kidney; I10 Essential (primary) hypertension; E78.00 Pure hypercholesterolemia, unspecified | CPT/HCPCS: 52310 ==

== ENCOUNTER → 2021-03-12 12:31 | Outpatient (BNVA) | payer BC, SELFPAY | PROVIDERS: Visit Provider Internal Medicine Cardiovascular Disease | DX: I10 Essential (primary) hypertension (principal) | CPT/HCPCS: 93005 ==

== ENCOUNTER 2021-04-13 13:34 | Outpatient (REF) | payer BC, SELFPAY | END 2021-04-13 13:35 | disposition home or self-care (01) | LOC: HO.HMGCLDS 13:34 | PROVIDERS: PCP Internal Medicine; Visit Provider Internal Medicine | DX: Z20.822 Contact with and (suspected) exposure to COVID-19 (principal) | CPT/HCPCS: C9803; U0003; U0005 ==

== ENCOUNTER 2021-05-07 13:55 | Outpatient (REF) | payer BC, SELFPAY ==
--- NOTE | ~2021-05-07 | US_ITS ---
EXAMINATION: US RETROPERITONEAL LIMITED (RENAL ONLY) CLINICAL INFORMATION: Calculus of kidney. COMPARISON: CT abdomen and pelvis without contrast dated 01/07/2021. MR abdomen without and with contrast dated 03/13/2018. Renals only ultrasound dated 03/12/2018. Ultrasound abdomen complete dated 02/27/2018. KUBs dated 02/25/2018 and 02/04/2018. TECHNIQUE: Real-time imaging of the kidneys. FINDINGS: RIGHT KIDNEY: 12.2 x 5.4 x 5.9 cm (SAG x AP x TRV). The kidney is normal in size, contour, and echogenicity. Renal cortical thickness is normal. No hydronephrosis. There is an anechoic cyst in the midpole measuring 1.6 x 1.3 x 1.5 cm. There is an echogenic stone in the lower pole measuring 0.3 x 0.3 x 0.2 cm. There is no caliectasis seen. LEFT KIDNEY: 11.4 x 6.5 x 5.0 cm (SAG x AP x TRV). The kidney is normal in size, contour, and echogenicity. Renal cortical thickness is normal. No focal parenchymal lesions or hydronephrosis. There is an echogenic stone in the lower pole measuring 0.3 x 0.2 x 0.3 cm and midpole measuring 0.6 x 0.3 x 0.4 cm. No caliectasis seen. US/US renal BI IMPRESSION: Bilateral nonobstructive echogenic stones. Small anechoic cyst midpole right kidney. There is no hydronephrosis.
== END 2021-05-07 13:56 | disposition home or self-care (01) ==
LOC: HO.HMGCX 13:55
PROVIDERS: PCP Internal Medicine; Visit Provider Urology
DX: N20.0 Calculus of kidney (principal)
CPT/HCPCS: 76775

== ENCOUNTER → 2021-05-23 15:10 | Outpatient (BNVA) | payer BC, SELFPAY | PROVIDERS: Visit Provider Urology ==

== ENCOUNTER 2021-06-19 22:10 | Emergency (ER) | payer BC, SELFPAY ==
[2021-06-19 22:34] VITALS: BP 158/74; PULSE 91; RESP 18; TEMP 36.6; O2SAT 97; BMI 31.8
[2021-06-19] MEDS: Ibuprofen 600 MG TABLET PO (22:41)
--- NOTE | 2021-06-20 00:35 | ED.GENADULT ---
HPI - General Adult General Chief complaint: General Medical Stated complaint: stiff neck Time Seen by Provider: 06/20/21 00:22 Source: patient Mode of arrival: ambulatory Limitations: no limitations History of Present Illness HPI narrative: 66-year-old male who presents emergency department for evaluation of right-sided neck pain. The patient denies any injury. He states that he woke up this morning with pain in the right side of his neck. He describes the pain as a constant nagging pain. The pain is 8/10 at its worst. The pain is worse with movement. He denies any numbness or weakness of his upper extremities. He denied fever, chills, rhinorrhea, headache, cough. He did not take any medications at home for the pain. He states he tried to take a hot shower but this did not help pain. He states that he has scoliosis and he sees a chiropractor for his scoliosis. Related Data Home Medications Medication Instructions Recorded Confirmed amlodipine 2.5 mg tablet 2.5 mg PO DAILY 05/08/20 03/12/21 niacin 500 mg tablet 500 mg PO DAILY 05/08/20 03/12/21 omega-3 fatty acids 1,000 mg 1,000 mg PO DAILY 05/08/20 03/12/21 capsule (Fish Oil Concentrate) vitamins A,C,V-eknr-hguetr 14,320 1 cap PO ONCE cap 05/08/20 03/12/21 unit-226 mg-200 unit capsule (PreserVision AREDS) milk thistle seed extract 175 mg 175 mg PO BID 09/04/20 03/12/21 capsule griseofulvin microsize 500 mg 500 mg PO DAILY 11/14/20 03/12/21 tablet Previous Rx's Medication Instructions Recorded allopurinol 100 mg tablet 100 mg PO DAILY 90 Days #90 tab 02/14/21 pyridoxine (vitamin B6) 100 mg 100 mg PO DAILY 90 Days #90 tab 02/14/21 tablet atorvastatin 10 mg tablet 10 mg PO DAILY 90 Days #90 tab 03/29/21 potassium citrate 10 mEq (1,080 2,160 mg PO TID 90 Days #360 tab 05/23/21 mg) tablet,extended release (Urocit-K 10) cyclobenzaprine 10 mg tablet 10 mg PO TID PRN #15 tab 06/20/21 Allergies Allergy/AdvReac Type Severity Reaction Status Date / Time No Known Allergies Allergy Verified 05/23/21 15:16 [No Known Allergies*] Review of Systems Review of Systems: Yes all other systems are reviewed and are negative [facility] Past Medical History Medical History GERD (gastroesophageal reflux disease) History of kidney stones Hypercholesterolemia Hypertension Obesity Obstructive sleep apnea Polycystic liver disease Scoliosis Tubular adenoma of colon Surgical History History of lithotripsy History of removal of cyst History of thyroidectomy Family History Family History Father Medical history unknown Mother Medical history unknown Social History Social History Alcohol intake: former Patient Tobacco Use Status: Never used Tobacco Advance Directives: No Advance Directives Information Provided: Yes Physical Exam Vital Signs: Vital Signs: Last Vital Signs Temp 97.9 F 06/19/21 22:34 Pulse 91 06/19/21 22:34 Resp 18 06/19/21 22:34 BP 158/74 H 06/19/21 22:34 Pulse Ox 97 06/19/21 22:34 BMI result Body Mass Index 31.8 Const: General: cooperative and no acute distress Orientation/consciousness: oriented to person and oriented to place Limitations: no limitations HENMT: Head: Yes normal to inspection, Yes normocephalic and Yes atraumatic Ears: external ears normal General nose exam: Normal external nose present Face and sinus: Yes normal facial exam Mouth: Normal oral and palatal mucosa present Throat: Yes posterior oropharynx normal Eyes: General: appearance normal, both eyes and all related structures Pupils: Equal, round and reactive pupils present Neck: Other: Tender right trapezius muscle with spasm, no C-spine tenderness, full range of motion, neck is supple. Chest: Chest palpation & inspection: normal inspection of the chest and normal palpation of entire chest wall Resp: Effort & Inspection: normal respiratory effort and able to speak in complete sentences Auscultation: clear to auscultation bilaterally Cardio: Rate: regular rate Rhythm: regular rhythm Heart sounds: S1 normal heart sound present, S2 normal heart sound present and no murmurs GI: Inspection: Yes normal to inspection Palpation (GI): Soft to palpation, nontender and no guarding Auscultation: normal bowel sounds : General: Yes no CVA tenderness Back/Spine/Pelvis: Back: no CVA tenderness Skin: General skin exam: no rashes or lesions noted Neuro: General: oriented to person and oriented to place Cranial nerves: Yes CN's II-XII intact bilaterally and Yes Equal, round and reactive pupils present Cognition (Neuro): normal cognition Motor exam (neuro): 5/5 motor strength present throughout Extrem: General: Yes normal to inspection Psych: Appearance: grossly normal Speech and movement: Normal speech and movement present Affect: normal affect Attitude: cooperative Thought process: Normal thought process present Thought content: Normal thought content present Course Course Course Narrative: 66-year-old male who presents emergency department for evaluation of right neck pain. The patient woke up with the pain this morning and he had no known injury. Vital signs revealed an elevated blood pressure of 152/74 otherwise was unremarkable. Examination did reveal tenderness and spasm of the right trapezius muscle. Patient's presentation is consistent with muscle strain. Patient was given Toradol 60 mg IM. The patient will be discharged home with prescription for cyclobenzaprine. He is also advised to take Tylenol ibuprofen. She was given printed and verbal instructions and discharged home. Discharge Plan Discharge Clinical Impression: Cervical muscle strain Qualifiers: Encounter type: initial encounter Qualified Code(s): S16.1XXA - Strain of muscle, fascia and tendon at neck level, initial encounter Patient Disposition: Home, Self-Care Instructions: Cervical Sprain (ED) Additional Instructions: Take Motrin (ibuprofen) 200 mg pills, 2 pills every 6 hours as needed for pain. Take Tylenol (acetaminophen) 500 mg pills, 2 pills every 6 hours as needed for pain. Take Flexeril (cyclobenzaprine) 10 mg pills, 1 pill every 8 hours as needed for pain or muscle spasm. This is a prescription medication. This medication will make you sleepy, therefore do not drive or work while taking this medication. Apply ice for 15 minutes to the area that hurts on your right side of your neck for 15 minutes. Do this 4-6 times a day to help reduce the pain in your neck. Continue with normal activities as tolerated since staying in bed and not moving around will make your pain worse. Please return to the Emergency Department or see your doctor immediately if your symptoms get worse or if you develop any new symptoms that are concerning you. Follow up with your doctor in 2 day. Please read the other printed discharge instructions on neck sprain/ pain. Prescriptions: New cyclobenzaprine 10 mg tablet 10 mg PO TID PRN (Reason: pain, muscle spasm) Qty: 15 RF: 0 No Action atorvastatin 10 mg tablet 10 mg PO DAILY 90 Days Qty: 90 RF: 1 amlodipine 2.5 mg tablet 2.5 mg PO DAILY RF: 0 niacin 500 mg tablet 500 mg PO DAILY RF: 0 omega-3 fatty acids [Fish Oil Concentrate] 1,000 mg capsule 1,000 mg PO DAILY RF: 0 PreserVision AREDS 14,320-226-200 fotg-nn-rkll capsule 1 cap PO ONCE RF: 0 ketorolac 60 mg/2 mL solution 60 mg IM ONCE Qty: 2 RF: 0 milk thistle seed extract 175 mg capsule 175 mg PO BID RF: 0 potassium citrate [Urocit-K 10] 10 mEq (1,080 mg) tablet extended release 2,160 mg PO TID 90 Days Qty: 360 RF: 1 griseofulvin microsize 500 mg tablet 500 mg PO DAILY RF: 0 pyridoxine (vitamin B6) 100 mg tablet 100 mg PO DAILY 90 Days Qty: 90 RF: 1 allopurinol 100 mg tablet 100 mg PO DAILY 90 Days Qty: 90 RF: 1
[2021-06-20] MEDS: Ketorolac Tromethamine 60 MG/2 ML VIAL IM (00:48)
[2021-06-20 01:06] VITALS: BP 113/66; PULSE 77; RESP 16; O2SAT 96
== END 2021-06-20 01:09 | disposition home or self-care (01) ==
PROVIDERS: Emergency Provider Emergency Medicine Emergency Medical Services; PCP Internal Medicine
DX: S16.1XXA Strain of muscle, fascia and tendon at neck level, initial encounter (principal); X50.1XXA Overexertion from prolonged static or awkward postures, initial encounter; I10 Essential (primary) hypertension; I48.0 Paroxysmal atrial fibrillation; Y93.84 Activity, sleeping; Y92.013 Bedroom of single-family (private) house as the place of occurrence of the external cause; Y99.9 Unspecified external cause status; Z86.711 Personal history of pulmonary embolism; Z87.442 Personal history of urinary calculi
CPT/HCPCS: 96372; 99284; J1885

== ENCOUNTER 2021-06-26 14:46 | Inpatient (IN) | payer BC, MEDICARE, OTHER, SELFPAY ==
--- NOTE | 2020-06-26 18:47 | ECG_ITS ---
Test Reason : CHEST PAIN. REPEAT Blood Pressure : / mmHG Vent. Rate : 070 BPM Atrial Rate : 070 BPM P-R Int : 156 ms QRS Dur : 096 ms QT Int : 378 ms P-R-T Axes : 041 -34 -11 degrees QTc Int : 408 ms Normal sinus rhythm Left axis deviation Abnormal ECG When compared with ECG of 26-JUN-2021 15:48, Sinus rhythm has replaced Atrial fibrillation Vent. rate has decreased BY 71 BPM Left bundle branch block is no longer Present Referred By: Ever Meléndez Electronically Signed By:HAMIDA TURNER MD
[2021-06-26] VITALS (14 sets, daily range): BP systolic 99–125; BP diastolic 56–69; PULSE 62–189; RESP 18–24; TEMP 37–37.7; O2SAT 88–97; BMI 31.8
--- NOTE | 2021-06-26 | ECG_ITS ---
Test Reason : CHEST PAIN/ AFIB Blood Pressure : / mmHG Vent. Rate : 141 BPM Atrial Rate : 000 BPM P-R Int : 000 ms QRS Dur : 126 ms QT Int : 290 ms P-R-T Axes : 000 -42 111 degrees QTc Int : 444 ms Atrial fibrillation with rapid ventricular response Left axis deviation Left bundle branch block Abnormal ECG When compared with ECG of 26-JUN-2021 15:01, No significant change was found Referred By: Ever Meléndez Electronically Signed By:HAMIDA TURNER MD
--- NOTE | ~2021-06-26 | XR_ITS ---
EXAMINATION: XR CHEST CLINICAL INFORMATION: Weakness. Covid positive. COMPARISON: CT abdomen/pelvis dated from 01/07/2021. TECHNIQUE: AP view of the chest was obtained. FINDINGS: Multifocal airspace opacities. No significant pleural effusion. No pneumothorax. Stable prominence of the cardiomediastinal silhouette. No acute osseous abnormalities. The visualized upper abdomen is within normal limits. XR/XR chest 1V IMPRESSION: Multifocal airspace opacities concerning for Covid pneumonia in the appropriate clinical context.
--- NOTE | ~2021-06-26 | CT_ITS ---
EXAMINATION: CT ANGIOGRAM OF THE CHEST WITH AND WITHOUT CONTRAST (CT PULMONARY ANGIOGRAM FOR PE) CLINICAL INFORMATION: Reason for Exam COVID + elevated ddimer eval for PE COMPARISON: CT abdomen dated from 01/07/2021. TECHNIQUE: Prior to contrast administration, noncontrast localization images were obtained. Subsequently, multidetector volumetric imaging was performed from the thoracic inlet to below the diaphragms following the administration of 71 mL Omnipaque 350 intravenous contrast. No contrast reaction reported Sagittal, coronal, and MIP oblique sagittal reformatted images were obtained on the CT workstation, uploaded to PACS, and reviewed. This CT examination was performed using dose optimization techniques as appropriate, variously including the following: *Automated exposure control *Adjustment of mA and/or kV according to patient size (this includes techniques or standardized protocols for targeted exams where dose is matched to indication/reason for exam; i.e. extremities or head) *Use of iterative reconstruction technique Total exam dose-length product 419 mGy-cm FINDINGS: QUALITY OF STUDY/CONTRAST BOLUS: Satisfactory. PULMONARY ARTERIES: Questionable small nonocclusive filling defects within a right apical segmental branch (8:64 and 7:147). No central pulmonary emboli. THORACIC AORTA: Atherosclerotic disease. No aneurysm or dissection. LUNG: Multifocal patchy and groundglass opacities with a peripheral predominance. In this setting evaluation of pulmonary nodules is suboptimal as many of these could be obscured by overlying airspace opacities. PLEURA: Calcified pleural plaques in the anterior pleural surface. Trace amount of bilateral pleural fluid. No pneumothorax. MEDIASTINUM: Mild cardiomegaly with a prominent epicardial fat pad. Trace amount of pericardial fluid. No mediastinal or hilar lymphadenopathy. Coronary calcifications. No evidence of septal bowing or right heart strain. Asymmetrical enlargement and heterogeneity of the left lobe of the thyroid. CHEST WALL/AXILLA: No axillary or internal mammary lymphadenopathy. OSSEOUS STRUCTURES: No acute or suspicious osseous abnormality. UPPER ABDOMEN: Redemonstration of several lobulated and septated water density cystic lesions in the liver, unchanged since 2019. No reflux of contrast into the hepatic veins to suggest elevated right heart pressures. CT/CT angio chest PE protocol IMPRESSION: Questionable nonocclusive right apical pulmonary emboli. No central pulmonary emboli nor evidence of increased right-sided heart pressures. Multifocal airspace opacities with trace amount of bilateral pleural fluid concerning for a diffuse infectious or inflammatory processes such as Covid pneumonia. Calcified pleural plaques. Correlate with prior treatment for history of asbestosis. Asymmetrically enlarged and heterogeneous left lobe of the thyroid. If not already obtained, consider correlation with a nonemergent thyroid ultrasound. VTE: positive This critical result was discussed with Dr Meléndez at 06/26/2021 6:48 PM and it was ascertained that the content and urgency of the report was understood at the time of direct communication.
--- NOTE | 2021-06-26 15:02 | ECG_ITS ---
Test Reason : chest pain/covid+ Blood Pressure : / mmHG Vent. Rate : 178 BPM Atrial Rate : 000 BPM P-R Int : 000 ms QRS Dur : 120 ms QT Int : 266 ms P-R-T Axes : 000 -44 114 degrees QTc Int : 457 ms Atrial fibrillation with rapid ventricular response Left axis deviation Left bundle branch block Abnormal ECG When compared with ECG of 03-AUG-2020 23:31, Atrial fibrillation has replaced Sinus rhythm Vent. rate has increased BY 104 BPM Left bundle branch block is new Referred By: Generic ED Physician Electronically Signed By:HAMIDA TURNER MD
[2021-06-26] MEDS: dilTIAZem HCL 50 MG/10 ML VIAL 10 MG IVPUSH ×2 (15:35→15:45)
[2021-06-26 15:57] LABS: INTERNATIONAL NORM RATIO 1.2 (0.9-1.1); Prothrombin Time 13.8 SEC (9.9-13.0)
[2021-06-26 15:59] LABS: D Dimer High Sensitivity 443 NG/ML
[2021-06-26 16:00] LABS: Partial Thromboplastin Time 30.9 SEC (24.1-38.0)
[2021-06-26] MEDS: dilTIAZem HCL 125 MG in 0.9 % Sodium Chloride 100 ML 10 MG IVCONT (16:01)
[2021-06-26] MEDS: 0.9 % Sodium Chloride 500 ML IV (16:01)
[2021-06-26 16:02] LABS: Lactic Acid 1.7 mmol/L (0.5-2.0)
[2021-06-26] MEDS: fentaNYL citrate/PF 100 MCG/2 ML VIAL 50 MCG IVPUSH (16:02)
[2021-06-26 16:10] LABS: COVID-19 Test Positive (Negative)
[2021-06-26 16:10] LABS: B Type Natriuretic Peptide 16 pg/mL (<100); Troponin-I High Sensitivity 21.2 ng/L (<3.5-35.0)
[2021-06-26 16:12] LABS: Lymphocytes Absolute Auto 0.6 X10*3/uL (1.2-4.9); Mean Platelet Volume 10.8 fL (9.4-12.4); PLT CLUMP 1; Red Cell Distribution Width 14.7 % (11.0-16.0); SCAN SMEAR FLAG 1
[2021-06-26] MEDS: Acetaminophen 325 MG TABLET 650 MG PO (16:13)
[2021-06-26 16:14] LABS: Basophils Percent Auto 0.2 % (0-2); Eosinophils Percent Auto 0.2 % (0-4); Hematocrit 44.7 % (42.0-52.0); Hemoglobin 15.3 g/dl (14.0-18.0); Imm Gran Abs Auto 0.02 X10*3/uL (0.00-0.03); Imm Gran Pct Auto 0.3 % (0.0-0.4); Lymphocytes Percent Auto 9.6 % (20-40); MANUAL DIFF FLAG SCAN; Mean Corpuscular HGB Conc 34.2 g/dl (31.0-36.0); Mean Corpuscular Hemoglobin 30.4 pg (27.0-33.0); Mean Corpuscular Volume 88.9 fL (80.0-98.0); Monocytes Absolute Auto 0.6 X10*3/uL (0.1-1.2); NRBC Pct Auto 0.3 /100WBC (0.0-0.2); Neutrophils Absolute Auto 4.6 x10*3/uL (2.0-8.3); Neutrophils Percent Auto 79.7 % (45-73); Red Blood Count 5.03 X10*6/uL (4.60-5.80)
--- NOTE | 2021-06-26 16:17 | PC.NURSE ---
patient a&ox3, sheet rock applier applied- hr 180s, vitals obtained, provider was at bedside, ivs inserted, labs drawn, ivp diltizam given then iv drip diltizam began, ivf hung, covid swab obtained, pt medicated per order, will continue to monitor.
--- NOTE | 2021-06-26 16:18 | ED.CHESTPAIN ---
HPI - Chest Pain General Chief Complaint: Chest Pain Stated Complaint: +COVID,REPROD CP,FEVER,95% RA Time Seen by Provider: 06/26/21 15:07 Source: patient Mode of arrival: ambulatory Limitations: no limitations History of Present Illness HPI narrative: 66 yo male unvaccinated symptoms started 06/23 tested positive at [facility] today has been feeling weak, malaise, cough, shortness of breath today about 1.5 hours LIN[facility] [employer] developed rapid heart rate and chest pain no prior episodes of afib in the past MD complaint: chest pain (COVID +) Onset (ago): hour(s) (1.5 hours (CP) but sick since 06/23) Timing of current episode: constant Prior episodes: No Onset: during rest Pain location: substernal Pain radiation: none Severity: severe Quality: sharp Relieving factors: nothing Exacerbating factors: inspiration and movement Context: recent illness (+COVID) Associated symptoms: nausea, dyspnea, fever and cough Treatment prior to arrival: none Related Data Home Medications Medication Instructions Recorded Confirmed amlodipine 2.5 mg tablet 2.5 mg PO DAILY 05/08/20 03/12/21 niacin 500 mg tablet 500 mg PO DAILY 05/08/20 03/12/21 omega-3 fatty acids 1,000 mg 1,000 mg PO DAILY 05/08/20 03/12/21 capsule (Fish Oil Concentrate) vitamins A,C,B-bvzq-snshll 14,320 1 cap PO ONCE cap 05/08/20 03/12/21 unit-226 mg-200 unit capsule (PreserVision AREDS) milk thistle seed extract 175 mg 175 mg PO BID 09/04/20 03/12/21 capsule griseofulvin microsize 500 mg 500 mg PO DAILY 11/14/20 03/12/21 tablet Previous Rx's Medication Instructions Recorded allopurinol 100 mg tablet 100 mg PO DAILY 90 Days #90 tab 02/14/21 pyridoxine (vitamin B6) 100 mg 100 mg PO DAILY 90 Days #90 tab 02/14/21 tablet atorvastatin 10 mg tablet 10 mg PO DAILY 90 Days #90 tab 03/29/21 potassium citrate 10 mEq (1,080 2,160 mg PO TID 90 Days #360 tab 05/23/21 mg) tablet,extended release (Urocit-K 10) cyclobenzaprine 10 mg tablet 10 mg PO TID PRN #15 tab 12/29/21 Allergies Allergy/AdvReac Type Severity Reaction Status Date / Time No Known Allergies Allergy Verified 05/23/21 15:16 [No Known Allergies*] Review of Systems Review of Systems: Constitutional : No Weight loss, pos Fever, pos Chills ENT/Mouth : No sore throat, No Rhinorrhea Eyes: No Eye Pain, No Swelling Cardiovascular : pos Chest Pain, pos SOB, no Dyspnea on Exertion, No Orthopnea, No Edema, pos Palpitations Respiratory : pos Cough, No Sputum Gastrointestinal : pos Nausea, No Vomiting, No Diarrhea, No abdominal Pain, No Hematochezia, No Melena Genitourinary : No Dysuria, No Urinary Frequency Musculoskeletal : No joint pain, No Myalgias, No Joint Swelling Skin : No Skin Lesions, No rash Neuro : pos Weakness, No Numbness, No Dizziness, No Headache Psych : No Anxiety/Panic, No Depression Heme/Lymph: No Bruising, No Lymphadenopathy Endocrine : No Polyuria, No Polydipsia All other systems reviewed and are negative PMFSH Past Medical History Medical History GERD (gastroesophageal reflux disease) History of kidney stones Hypercholesterolemia Hypertension Obesity Obstructive sleep apnea Polycystic liver disease Scoliosis Tubular adenoma of colon Surgical History History of lithotripsy History of removal of cyst History of thyroidectomy Family History Family History Father Medical history unknown Mother Medical history unknown Social History Social History Alcohol intake: former Patient Tobacco Use Status: Never used Tobacco Physical Exam Vital Signs: Vital Signs: Last Vital Signs Temp 99.8 F 06/26/21 15:54 Pulse 122 H 06/26/21 16:39 Resp 18 06/26/21 16:39 BP 103/61 06/26/21 16:39 Pulse Ox 94 06/26/21 16:39 BMI result Body Mass Index 31.8 Appearance: Alert. Oriented X3. Anxious in pain acute distress. Eyes: Pupils equal, round and reactive to light. ENT: Pharynx normal. Neck: Normal inspection. Neck supple. CVS: tachycardic and irregular heart rate and rhythm. Pulses normal. Respiratory: No respiratory distress. Breath sounds very diminished Abdomen: Soft and nontender. Skin: Skin warm and dry. pale skin color. Normal skin turgor. Extremities: No lower extremity edema. No calf ttp Neuro: Oriented X 3. No motor deficit. No sensory deficit. Course Course Course Narrative: 1557 Dr. Easton sent EKGs - new LBBB rapid afib chest pain - PE workup and cardizem drip will sign out to Dr. 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 Lab Data Result diagrams: 06/26/21 15:42 06/26/21 15:42 Labs: Lab Results 06/26/21 06/26/21 06/26/21 Range/Units 15:42 15:42 15:42 WBC 5.6 (4.8-10.8) X10*3/uL RBC 5.03 (4.60-5.80) X10*6/uL Hgb 15.3 (14.0-18.0) g/dl Hct 44.7 (42.0-52.0) % MCV 88.9 (80.0-98.0) fL MCH 30.4 (27.0-33.0) pg MCHC 34.2 (31.0-36.0) g/dl RDW 14.7 (11.0-16.0) % Plt Count 132 L (160-400) X10*3/uL MPV 10.8 (9.4-12.4) fL Immature Gran % (Auto) 0.3 (0.0-0.4) % Neut % (Auto) 79.7 H (45-73) % Lymph % (Auto) 9.6 L (20-40) % [place] % (Auto) 10.0 (2-11) % Eos % (Auto) 0.2 (0-4) % Baso % (Auto) 0.2 (0-2) % Lymph # (Auto) 0.6 L (1.2-4.9) X10*3/uL [place] # (Auto) 0.6 (0.1-1.2) X10*3/uL Eos # (Auto) 0.0 (0.0-0.4) X10*3/uL Baso # (Auto) 0.0 (0.0-0.2) X10*3/uL Abs Immat Gran (auto) 0.02 (0.00-0.03) X10*3/uL Absolute Neuts (auto) 4.6 (2.0-8.3) x10*3/uL Absolute Nucleated RBC 0.020 H (0.0-0.012) X10*3/uL Nucleated RBC % (auto) 0.3 H (0.0-0.2) /100WBC Smear Tech's Comments VERIFIED PT 13.8 H (9.9-13.0) SEC INR 1.2 H (0.9-1.1) APTT 30.9 (24.1-38.0) SEC D-Dimer High Sensitivty 443 NG/ML Lactic Acid 1.7 (0.5-2.0) mmol/L Troponin I High Sens (<3.5-35.0) ng/L B-Natriuretic Peptide (<100) pg/mL COVID-19 ([facility]) (Negative) COVID-19 Clin Com 06/26/21 06/26/21 Range/Units 15:42 15:56 WBC (4.8-10.8) X10*3/uL RBC (4.60-5.80) X10*6/uL Hgb (14.0-18.0) g/dl Hct (42.0-52.0) % MCV (80.0-98.0) fL MCH (27.0-33.0) pg MCHC (31.0-36.0) g/dl RDW (11.0-16.0) % Plt Count (160-400) X10*3/uL MPV (9.4-12.4) fL Immature Gran % (Auto) (0.0-0.4) % Neut % (Auto) (45-73) % Lymph % (Auto) (20-40) % [place] % (Auto) (2-11) % Eos % (Auto) (0-4) % Baso % (Auto) (0-2) % Lymph # (Auto) (1.2-4.9) X10*3/uL [place] # (Auto) (0.1-1.2) X10*3/uL Eos # (Auto) (0.0-0.4) X10*3/uL Baso # (Auto) (0.0-0.2) X10*3/uL Abs Immat Gran (auto) (0.00-0.03) X10*3/uL Absolute Neuts (auto) (2.0-8.3) x10*3/uL Absolute Nucleated RBC (0.0-0.012) X10*3/uL Nucleated RBC % (auto) (0.0-0.2) /100WBC Smear Tech's Comments PT (9.9-13.0) SEC INR (0.9-1.1) APTT (24.1-38.0) SEC D-Dimer High Sensitivty NG/ML Lactic Acid (0.5-2.0) mmol/L Troponin I High Sens 21.2 (<3.5-35.0) ng/L B-Natriuretic Peptide 16 (<100) pg/mL COVID-19 ([facility]) Positive A (Negative) COVID-19 Clin Com See Note ECG Data ECG #1: Attestation: I personally reviewed and interpreted this ECG as follows: ECG interpretation date: 06/26/21 ECG interpretation time: 16:22 Interpretation: Rate: 141 Rhythm: afib with RVR [place]: left, LVH LBBB ST T wave : no HERIBERTO, ST depressions lateral leads, t waves tall anterior leads qTC: normal prior studies: changed from prior The study has been interpreted contemporaneously by me. . Critical Care Time Critical Care Time Critical Care Time: Yes Total Critical Care Time: 35 Attestation: medical consult, repeat bolus of diltiazem, start on diltiazem drip I attest to this time spent taking care of the patient Discharge Plan Discharge Clinical Impression: COVID-19, Atrial fibrillation with rapid ventricular response, Hypoxia Prescriptions: No Action atorvastatin 10 mg tablet 10 mg PO DAILY 90 Days Qty: 90 RF: 1 cyclobenzaprine 10 mg tablet 10 mg PO TID PRN (Reason: pain, muscle spasm) Qty: 15 RF: 0 amlodipine 2.5 mg tablet 2.5 mg PO DAILY RF: 0 niacin 500 mg tablet 500 mg PO DAILY RF: 0 omega-3 fatty acids [Fish Oil Concentrate] 1,000 mg capsule 1,000 mg PO DAILY RF: 0 PreserVision AREDS 14,320-226-200 hjbb-hz-vbcg capsule 1 cap PO ONCE RF: 0 ketorolac 60 mg/2 mL solution 60 mg IM ONCE Qty: 2 RF: 0 milk thistle seed extract 175 mg capsule 175 mg PO BID RF: 0 potassium citrate [Urocit-K 10] 10 mEq (1,080 mg) tablet extended release 2,160 mg PO TID 90 Days Qty: 360 RF: 1 griseofulvin microsize 500 mg tablet 500 mg PO DAILY RF: 0 pyridoxine (vitamin B6) 100 mg tablet 100 mg PO DAILY 90 Days Qty: 90 RF: 1 allopurinol 100 mg tablet 100 mg PO DAILY 90 Days Qty: 90 RF: 1
--- NOTE | 2021-06-26 16:18 | PC.NURSE ---
patients o2 sat had decreased to 88%, pt was placed on 2l nc
[2021-06-26 16:20] LABS: Platelet Count 132 X10*3/uL (160-400); White Blood Count 5.6 X10*3/uL (4.8-10.8)
[2021-06-26 16:21] LABS: SLIDE REVIEW VERIFIED
--- NOTE | 2021-06-26 16:22 | PC.NURSE ---
patient states his pain has decreased from an 8/9 down to a 4
[2021-06-26] MEDS: dexAMETHasone sod phosphate 4 MG/ML VIAL 6 MG IVPUSH (16:41)
--- NOTE | 2021-06-26 16:41 | PC.NURSE ---
per request of provider, patients diltizam was titrated down to 10.
[2021-06-26] MEDS: Digoxin 0.5 MG/2 ML AMPUL 0.25 MG IVPUSH ×2 (17:10→17:57)
[2021-06-26 17:34] LABS: Alanine Aminotransferase 29 U/L (0-40); Albumin Level 3.7 g/dL (3.5-5.0); Alkaline Phosphatase 74 U/L (39-117); Anion Gap 15 (12-20); Aspartate Amino Transferase 36 U/L (5-37); Bilirubin Direct 0.6 mg/dL (0.0-0.5); Bilirubin Total 1.3 mg/dL (0.0-1.0); Blood Urea Nitrogen 20 mg/dL (9-16); C Reactive Protein 1.76 mg/dL (< or = 0.50); Calcium 8.4 mg/dL (8.4-10.2); Carbon Dioxide 21 mmol/L (22-29); Chloride 109 mmol/L (96-108); Creatinine Clr Calc Pharmacy 81.4; Estimated Glomerular Filt Rate > 60; Glucose Random 136 mg/dL (60-115); Magnesium 2.1 mg/dL (1.6-2.6); Potassium 4.2 mmol/L (3.3-5.1); Sodium 141 mmol/L (135-145); TSH reflex Free T4 3.97 uIU/mL (0.32-4.0); Total Protein 6.3 g/dL (6.5-8.0)
[2021-06-26 17:44] LABS: Lactate Dehydrogenase 352 U/L (118-273)
[2021-06-26] MEDS: iohexoL 350 MG/ML 100 ML INFUS..BTL IV (17:56)
--- NOTE | 2021-06-26 18:01 | PC.NURSE ---
pt returned from ct scan, cardizem drip continues at 10, pt medicated with dig per order, quality assurance monitor body remains in 120s, pt states his pain has reduced to 2/10 aching mid sternal chest pain, bp 119/60 and pt continues to wear 2L O2 nc. call schwartz within reach, will continue to monitor.
[2021-06-26 18:06] LABS: Ferritin 563 ng/mL (20-250)
--- NOTE | 2021-06-26 18:10 | ED.CHESTPAIN ---
HPI - Chest Pain General Chief Complaint: Chest Pain Stated Complaint: +COVID,REPROD CP,FEVER,95% RA Time Seen by Provider: 06/26/21 15:07 Source: patient Mode of arrival: ambulatory Limitations: no limitations History of Present Illness Pain location: substernal Quality: sharp Relieving factors: nothing Exacerbating factors: inspiration and movement Context: recent illness (+COVID) Associated symptoms: nausea, dyspnea, fever and cough Related Data Home Medications Medication Instructions Recorded Confirmed amlodipine 2.5 mg tablet 2.5 mg PO DAILY 05/08/20 06/26/21 niacin 500 mg tablet 500 mg PO DAILY 05/08/20 06/26/21 omega-3 fatty acids 1,000 mg 1,000 mg PO DAILY 05/08/20 06/26/21 capsule (Fish Oil Concentrate) vitamins A,C,P-xogh-nouivc 14,320 1 cap PO ONCE cap 05/08/20 06/26/21 unit-226 mg-200 unit capsule (PreserVision AREDS) potassium citrate 10 mEq (1,080 20 meq PO TID 06/26/21 06/26/21 mg) tablet,extended release (Urocit-K 10) Previous Rx's Medication Instructions Recorded allopurinol 100 mg tablet 100 mg PO DAILY 90 Days #90 tab 02/14/21 atorvastatin 10 mg tablet 10 mg PO DAILY 90 Days #90 tab 03/29/21 Allergies Allergy/AdvReac Type Severity Reaction Status Date / Time No Known Allergies Allergy Verified 05/23/21 15:16 [No Known Allergies*] [facility] Past Medical History Medical History GERD (gastroesophageal reflux disease) History of kidney stones Hypercholesterolemia Hypertension Obesity Obstructive sleep apnea Polycystic liver disease Scoliosis Tubular adenoma of colon Surgical History History of lithotripsy History of removal of cyst History of thyroidectomy Family History Family History Father Medical history unknown Mother Medical history unknown Social History Social History Alcohol intake: current Alcohol intake frequency: holidays/special occasions only Patient Tobacco Use Status: Never used Tobacco Use of substances other than those prescribed or required for medical reasons: No Advance Directives: No Advance Directives Information Provided: No Physical Exam Vital Signs: Vital Signs: Last Vital Signs Temp 98.6 F 06/26/21 17:50 Pulse 68 06/26/21 18:48 Resp 18 06/26/21 18:48 BP 99/62 06/26/21 18:48 Pulse Ox 95 06/26/21 18:48 BMI result Body Mass Index 31.8 MDM - Chest Pain Lab Data Result diagrams: 06/26/21 15:42 06/26/21 15:42 Labs: Lab Results 06/26/21 06/26/21 06/26/21 Range/Units 15:42 15:42 15:42 WBC 5.6 (4.8-10.8) X10*3/uL RBC 5.03 (4.60-5.80) X10*6/uL Hgb 15.3 (14.0-18.0) g/dl Hct 44.7 (42.0-52.0) % MCV 88.9 (80.0-98.0) fL MCH 30.4 (27.0-33.0) pg MCHC 34.2 (31.0-36.0) g/dl RDW 14.7 (11.0-16.0) % Plt Count 132 L (160-400) X10*3/uL MPV 10.8 (9.4-12.4) fL Immature Gran % (Auto) 0.3 (0.0-0.4) % Neut % (Auto) 79.7 H (45-73) % Lymph % (Auto) 9.6 L (20-40) % [place] % (Auto) 10.0 (2-11) % Eos % (Auto) 0.2 (0-4) % Baso % (Auto) 0.2 (0-2) % Lymph # (Auto) 0.6 L (1.2-4.9) X10*3/uL [place] # (Auto) 0.6 (0.1-1.2) X10*3/uL Eos # (Auto) 0.0 (0.0-0.4) X10*3/uL Baso # (Auto) 0.0 (0.0-0.2) X10*3/uL Abs Immat Gran (auto) 0.02 (0.00-0.03) X10*3/uL Absolute Neuts (auto) 4.6 (2.0-8.3) x10*3/uL Absolute Nucleated RBC 0.020 H (0.0-0.012) X10*3/uL Nucleated RBC % (auto) 0.3 H (0.0-0.2) /100WBC Smear Tech's Comments VERIFIED PT 13.8 H (9.9-13.0) SEC INR 1.2 H (0.9-1.1) APTT 30.9 (24.1-38.0) SEC D-Dimer High Sensitivty 443 NG/ML Sodium 141 (135-145) mmol/L Potassium 4.2 (3.3-5.1) mmol/L Chloride 109 H (96-108) mmol/L Carbon Dioxide 21 L (22-29) mmol/L Anion Gap 15 (12-20) BUN 20 H (9-16) mg/dL Creatinine 1.19 (0.5-1.4) mg/dL Estim Creat Clear Calc 81.4 Estimated GFR > 60 Random Glucose 136 H (60-115) mg/dL Lactic Acid (0.5-2.0) mmol/L Calcium 8.4 D (8.4-10.2) mg/dL Magnesium 2.1 (1.6-2.6) mg/dL Ferritin 563 H (20-250) ng/mL Total Bilirubin 1.3 H (0.0-1.0) mg/dL Direct Bilirubin 0.6 H (0.0-0.5) mg/dL AST 36 D (5-37) U/L ALT 29 (0-40) U/L Alkaline Phosphatase 74 (39-117) U/L Lactate Dehydrogenase 352 H (118-273) U/L Troponin I High Sens (<3.5-35.0) ng/L C-Reactive Protein 1.76 H (< or = 0.50) mg/dL B-Natriuretic Peptide (<100) pg/mL Total Protein 6.3 L (6.5-8.0) g/dL Albumin 3.7 (3.5-5.0) g/dL TSH 3.97 (0.32-4.0) uIU/mL COVID-19 ([facility]) (Negative) COVID-19 Clin Com 06/26/21 06/26/21 06/26/21 Range/Units 15:42 15:42 15:56 WBC (4.8-10.8) X10*3/uL RBC (4.60-5.80) X10*6/uL Hgb (14.0-18.0) g/dl Hct (42.0-52.0) % MCV (80.0-98.0) fL MCH (27.0-33.0) pg MCHC (31.0-36.0) g/dl RDW (11.0-16.0) % Plt Count (160-400) X10*3/uL MPV (9.4-12.4) fL Immature Gran % (Auto) (0.0-0.4) % Neut % (Auto) (45-73) % Lymph % (Auto) (20-40) % [place] % (Auto) (2-11) % Eos % (Auto) (0-4) % Baso % (Auto) (0-2) % Lymph # (Auto) (1.2-4.9) X10*3/uL [place] # (Auto) (0.1-1.2) X10*3/uL Eos # (Auto) (0.0-0.4) X10*3/uL Baso # (Auto) (0.0-0.2) X10*3/uL Abs Immat Gran (auto) (0.00-0.03) X10*3/uL Absolute Neuts (auto) (2.0-8.3) x10*3/uL Absolute Nucleated RBC (0.0-0.012) X10*3/uL Nucleated RBC % (auto) (0.0-0.2) /100WBC Smear Tech's Comments PT (9.9-13.0) SEC INR (0.9-1.1) APTT (24.1-38.0) SEC D-Dimer High Sensitivty NG/ML Sodium (135-145) mmol/L Potassium (3.3-5.1) mmol/L Chloride (96-108) mmol/L Carbon Dioxide (22-29) mmol/L Anion Gap (12-20) BUN (9-16) mg/dL Creatinine (0.5-1.4) mg/dL Estim Creat Clear Calc Estimated GFR Random Glucose (60-115) mg/dL Lactic Acid 1.7 (0.5-2.0) mmol/L Calcium (8.4-10.2) mg/dL Magnesium (1.6-2.6) mg/dL Ferritin (20-250) ng/mL Total Bilirubin (0.0-1.0) mg/dL Direct Bilirubin (0.0-0.5) mg/dL AST (5-37) U/L ALT (0-40) U/L Alkaline Phosphatase (39-117) U/L Lactate Dehydrogenase (118-273) U/L Troponin I High Sens 21.2 (<3.5-35.0) ng/L C-Reactive Protein (< or = 0.50) mg/dL B-Natriuretic Peptide 16 (<100) pg/mL Total Protein (6.5-8.0) g/dL Albumin (3.5-5.0) g/dL TSH (0.32-4.0) uIU/mL COVID-19 ([facility]) Positive A (Negative) COVID-19 Clin Com See Note 06/26/21 Range/Units 19:04 WBC (4.8-10.8) X10*3/uL RBC (4.60-5.80) X10*6/uL Hgb (14.0-18.0) g/dl Hct (42.0-52.0) % MCV (80.0-98.0) fL MCH (27.0-33.0) pg MCHC (31.0-36.0) g/dl RDW (11.0-16.0) % Plt Count (160-400) X10*3/uL MPV (9.4-12.4) fL Immature Gran % (Auto) (0.0-0.4) % Neut % (Auto) (45-73) % Lymph % (Auto) (20-40) % [place] % (Auto) (2-11) % Eos % (Auto) (0-4) % Baso % (Auto) (0-2) % Lymph # (Auto) (1.2-4.9) X10*3/uL [place] # (Auto) (0.1-1.2) X10*3/uL Eos # (Auto) (0.0-0.4) X10*3/uL Baso # (Auto) (0.0-0.2) X10*3/uL Abs Immat Gran (auto) (0.00-0.03) X10*3/uL Absolute Neuts (auto) (2.0-8.3) x10*3/uL Absolute Nucleated RBC (0.0-0.012) X10*3/uL Nucleated RBC % (auto) (0.0-0.2) /100WBC Smear Tech's Comments PT (9.9-13.0) SEC INR (0.9-1.1) APTT (24.1-38.0) SEC D-Dimer High Sensitivty NG/ML Sodium (135-145) mmol/L Potassium (3.3-5.1) mmol/L Chloride (96-108) mmol/L Carbon Dioxide (22-29) mmol/L Anion Gap (12-20) BUN (9-16) mg/dL Creatinine (0.5-1.4) mg/dL Estim Creat Clear Calc Estimated GFR Random Glucose (60-115) mg/dL Lactic Acid (0.5-2.0) mmol/L Calcium (8.4-10.2) mg/dL Magnesium (1.6-2.6) mg/dL Ferritin (20-250) ng/mL Total Bilirubin (0.0-1.0) mg/dL Direct Bilirubin (0.0-0.5) mg/dL AST (5-37) U/L ALT (0-40) U/L Alkaline Phosphatase (39-117) U/L Lactate Dehydrogenase (118-273) U/L Troponin I High Sens 32.6 D (<3.5-35.0) ng/L C-Reactive Protein (< or = 0.50) mg/dL B-Natriuretic Peptide (<100) pg/mL Total Protein (6.5-8.0) g/dL Albumin (3.5-5.0) g/dL TSH (0.32-4.0) uIU/mL COVID-19 ([facility]) (Negative) COVID-19 Clin Com Discharge Plan Discharge Clinical Impression: COVID-19, Atrial fibrillation with rapid ventricular response, Hypoxia Pulmonary embolism Qualifiers: Pulmonary embolism type: single subsegmental (without acute cor pulmonale) Qualified Code(s): I26.93 - Single subsegmental pulmonary embolism without acute cor pulmonale Prescriptions: No Action atorvastatin 10 mg tablet 10 mg PO DAILY 90 Days Qty: 90 RF: 1 potassium citrate [Urocit-K 10] 10 mEq (1,080 mg) tablet extended release 20 meq PO TID RF: 0 amlodipine 2.5 mg tablet 2.5 mg PO DAILY RF: 0 niacin 500 mg tablet 500 mg PO DAILY RF: 0 omega-3 fatty acids [Fish Oil Concentrate] 1,000 mg capsule 1,000 mg PO DAILY RF: 0 PreserVision AREDS 14,320-226-200 eqwm-ve-hbms capsule 1 cap PO ONCE RF: 0 allopurinol 100 mg tablet 100 mg PO DAILY 90 Days Qty: 90 RF: 1
--- NOTE | 2021-06-26 18:39 | PHA.MEDREC ---
Pharmacy Consult ? Medication Reconciliation Pharmacy has completed the medication reconciliation. Contacted [place] for medication list
--- NOTE | 2021-06-26 18:49 | PC.NURSE ---
patient a&ox3, pt now in sinus rhythm, cardizem drip stopped, repeat ekg obtained, pt states his pain is 4/10, vitals documented, will repeat troponin and continue to monitor.
[2021-06-26 19:37] LABS: Troponin-I High Sensitivity 32.6 ng/L (<3.5-35.0)
--- NOTE | 2021-06-26 20:30 | PM.IMHP ---
History of Present Illness Date of Service: 06/26/21 Chief Complaint: shortness of breath 66-year-old male with a past medical history of hypertension, hyperlipidemia, obstructive sleep apnea, polycystic liver disease, obesity, GERD, history of kidney stones, history of thyroid disease status post thyroidectomy, scoliosis, history of tubular adenoma of the colon; presented to the hospital today with a chief complaint of chest pain. Patient was reportedly has been having symptoms of generalized weakness, body aches, shortness of breath, malaise since June 23, 2021; today he had was tested positive for COVID-19; later in the day he developed acute chest pain associated with the shortness of breath and worsening chest pain on deep inspiration hence present to the ER for further evaluation. Denies any radiation, denies any dizziness. Reports having shortness of breath. Denies any nausea vomiting or diaphoresis. Chest pain is sharp In nature. Improved after fentanyl in the ER. Patient denies any chest pain at the time of my interview. Patient reports that he has been having cough and shortness of breath denies any sputum production. Had subjective fevers. Denies any numbness tingling or focal weakness. Denies any falls or trauma. Review of all other systems is negative except mentioned above ER course: Per ER team Patient on presentation noted to be in distress secondary to the pain. Given fentanyl with improvement in the pain. present time patient noted to have stable blood pressure, oxygenation at 88%-placed on supplemental oxygen; patient was initially noted to be mildly tachypneic and tachycardic; patient's tachycardia went up to 178; EKG showed AFib with concerns for left bundle branch block; -new onset AFib; patient was given diltiazem IV push with no significant improvement; followed by patient was placed on diltiazem drip -maxed out dosing but still patient heart rate earning in low 120s in AFib; followed by patient does noted to have blood pressure on the soft side. Subsequently patient was given diltiazem 0.25 mg x2 and then patient converted to normal sinus rhythm. Follow-up EKG showed normal sinus rhythm and no ischemic changes. Did not find any LBBB On repeat EKG. Patient's chest pain resolved. Patient COVID-[address] angio of the chest showed right upper lobe pulmonary embolism and findings concerning for COVID-19 infection. Admitted for further management [facility] Medical History GERD (gastroesophageal reflux disease) History of kidney stones Hypercholesterolemia Hypertension Obesity Obstructive sleep apnea Polycystic liver disease Scoliosis Tubular adenoma of colon Family History Father Medical history unknown Mother Medical history unknown Pertinent family history: as mentioned above Surgical History History of lithotripsy History of removal of cyst History of thyroidectomy Social History Alcohol intake: current Alcohol intake frequency: holidays/special occasions only Patient Tobacco Use Status: Never used Tobacco Use of substances other than those prescribed or required for medical reasons: No Advance Directives: No Advance Directives Information Provided: No Meds Allergies Allergy/AdvReac Type Severity Reaction Status Date / Time No Known Allergies Allergy Verified 05/23/21 15:16 [No Known Allergies*] Active Medications: Current Medications Acetaminophen (Acetaminophen 325 Mg Tablet) 650 mg PO Q6H PRN PRN Reason: Pain, Mild (Pain Scale 1-3) Allopurinol (Allopurinol 100 Mg Tablet) 100 mg PO DAILY [facility] Atorvastatin Calcium (Atorvastatin Calcium 10 Mg Tablet) 10 mg PO DAILY [facility] Dexamethasone Sodium Phosphate (Dexamethasone Sod Phosphate 4 Mg/Ml Vial) 6 mg IVPUSH DAILY [facility] Enoxaparin Sodium (Enoxaparin Sodium 40 Mg/0.4 Ml Syringe) 110 mg SUBCUT Q12H CESAR Diltiazem HCl 125 mg/ Sodium (Chloride) 125 mls @ 0 mls/hr IVCONT .Q0M CESAR; Protocol Last Titration: 06/26/21 18:48 Dose: 0 mg/hr, 0 mls/hr Documented by: Azithromycin 500 mg/ Sodium (Chloride) 250 mls @ 125 mls/hr IV ONCE ONE Stop: 06/26/21 22:00 Ceftriaxone Sodium 1 gm/ (Sodium Chloride) 50 mls @ 100 mls/hr IV ONCE STA Stop: 06/26/21 20:30 Ceftriaxone Sodium 1 gm/ (Sodium Chloride) 50 mls @ 100 mls/hr IV Q24H C[facility]AR Azithromycin 500 mg/ Sodium (Chloride) 250 mls @ 125 mls/hr IV Q24H [facility] Melatonin (Melatonin 3 Mg Tablet) 6 mg PO BEDTIME PRN PRN Reason: Insomnia Morphine Sulfate (Morphine Sulfate 4 Mg/Ml Cartridge) 1 mg IVPUSH Q4H PRN; Protocol PRN Reason: Pain, SOB Non-Formulary Medication (Niacin) 500 mg PO DAILY [facility] Non-Formulary Medication (Vitamins A,C,B-Ybwe-Nrftsg [Preservision Areds]) 1 cap PO ONCE [facility] Pharmacy Consult (Consult Rx Perform Med Rec) 1 each MISCELLANE ONCE PRN PRN Reason: Consult order Senna (Sennosides 8.6 Mg Tablet) 17.2 mg PO BEDTIME PRN PRN Reason: Constipation Sodium Chloride (0.9 % Sodium Chloride Flush 3 Ml Syringe) 3 ml IVFLUSH QSHIFT [facility] Home Medications Medication Instructions Recorded Confirmed Last Taken Type amlodipine 2.5 mg tablet 2.5 mg PO DAILY 05/08/20 06/26/21 Unknown History niacin 500 mg tablet 500 mg PO DAILY 05/08/20 06/26/21 Unknown History omega-3 fatty acids 1,000 mg 1,000 mg PO DAILY 05/08/20 06/26/21 Unknown History capsule (Fish Oil Concentrate) vitamins A,C,E-qvgd-qijpea 14,320 1 cap PO ONCE cap 05/08/20 06/26/21 Unknown History unit-226 mg-200 unit capsule (PreserVision AREDS) potassium citrate 10 mEq (1,080 20 meq PO TID 06/26/21 06/26/21 Unknown History mg) tablet,extended release (Urocit-K 10) Physical Exam Vital Signs and Narrative: Vital Signs: Last Vital Signs Temp 98.9 F 06/26/21 20:18 Pulse 72 06/26/21 20:18 Resp 20 06/26/21 20:18 BP 116/67 06/26/21 20:18 Pulse Ox 96 06/26/21 20:18 BMI result Body Mass Index 31.8 Gen: Appears be in no acute distress. On supplemental oxygen. Speaks in full sentences HEENT: NCAT, Moist mucosa. Pulmonary: coarse breath sounds CVS: Normal S1-S2 Abdomen: BS+, Soft, Nontender Extremities: Warm well perfused Neuro: Alert and awake. Results Labs CBC and Chem 7: 06/26/21 15:42 06/26/21 15:42 Labs: Laboratory Results - last 24 hr 06/26/21 06/26/21 06/26/21 15:42 15:42 15:42 MCV 88.9 MCH 30.4 MCHC 34.2 RDW 14.7 Plt Count 132 L MPV 10.8 Immature Gran % (Auto) 0.3 Neut % (Auto) 79.7 H Lymph % (Auto) 9.6 L [place] % (Auto) 10.0 Eos % (Auto) 0.2 Baso % (Auto) 0.2 Lymph # (Auto) 0.6 L [place] # (Auto) 0.6 Eos # (Auto) 0.0 Baso # (Auto) 0.0 Abs Immat Gran (auto) 0.02 Absolute Neuts (auto) 4.6 Absolute Nucleated RBC 0.020 H Nucleated RBC % (auto) 0.3 H Smear Tech's Comments VERIFIED PT 13.8 H INR 1.2 H APTT 30.9 D-Dimer High Sensitivty 443 Anion Gap 15 Estim Creat Clear Calc 81.4 Estimated GFR > 60 Random Glucose 136 H Lactic Acid Calcium 8.4 D Magnesium 2.1 Ferritin 563 H Total Bilirubin 1.3 H Direct Bilirubin 0.6 H AST 36 D ALT 29 Alkaline Phosphatase 74 Lactate Dehydrogenase 352 H Troponin I High Sens C-Reactive Protein 1.76 H B-Natriuretic Peptide Total Protein 6.3 L Albumin 3.7 TSH 3.97 COVID-19 (EMMANUELLE) COVID-19 [employer] Com 06/26/21 06/26/21 06/26/21 15:42 15:42 15:56 MCV MCH MCHC RDW Plt Count MPV Immature Gran % (Auto) Neut % (Auto) Lymph % (Auto) Canyon % (Auto) Eos % (Auto) Baso % (Auto) Lymph # (Auto) [place] # (Auto) Eos # (Auto) Baso # (Auto) Abs Immat Gran (auto) Absolute Neuts (auto) Absolute Nucleated RBC Nucleated RBC % (auto) Smear Tech's Comments PT INR APTT D-Dimer High Sensitivty Anion Gap Estim Creat Clear Calc Estimated GFR Random Glucose Lactic Acid 1.7 Calcium Magnesium Ferritin Total Bilirubin Direct Bilirubin AST ALT Alkaline Phosphatase Lactate Dehydrogenase Troponin I High Sens 21.2 C-Reactive Protein B-Natriuretic Peptide 16 Total Protein Albumin TSH COVID-19 (EMMANUELLE) Positive A COVID-19 Clin Com See Note 06/26/21 19:04 MCV MCH MCHC RDW Plt Count MPV Immature Gran % (Auto) Neut % (Auto) Lymph % (Auto) Canyon % (Auto) Eos % (Auto) Baso % (Auto) Lymph # (Auto) [place] # (Auto) Eos # (Auto) Baso # (Auto) Abs Immat Gran (auto) Absolute Neuts (auto) Absolute Nucleated RBC Nucleated RBC % (auto) Smear Tech's Comments PT INR APTT D-Dimer High Sensitivty Anion Gap Estim Creat Clear Calc Estimated GFR Random Glucose Lactic Acid Calcium Magnesium Ferritin Total Bilirubin Direct Bilirubin AST ALT Alkaline Phosphatase Lactate Dehydrogenase Troponin I High Sens 32.6 D C-Reactive Protein B-Natriuretic Peptide Total Protein Albumin TSH COVID-19 (EMMANUELLE) COVID-19 Clin Com Imaging Radiologist's Impressions: Impressions Chest X-Ray 06/26/21 16:16 IMPRESSION: Multifocal airspace opacities concerning for Covid pneumonia in the appropriate clinical context. Chest CTA 06/26/21 18:02 IMPRESSION: Questionable nonocclusive right apical pulmonary emboli. No central pulmonary emboli nor evidence of increased right-sided heart pressures. Multifocal airspace opacities with trace amount of bilateral pleural fluid concerning for a diffuse infectious or inflammatory processes such as Covid pneumonia. Calcified pleural plaques. Correlate with prior treatment for history of asbestosis. Asymmetrically enlarged and heterogeneous left lobe of the thyroid. If not already obtained, consider correlation with a nonemergent thyroid ultrasound. VTE: positive This critical result was discussed with Dr Meléndez at 06/26/2021 6:48 PM and it was ascertained that the content and urgency of the report was understood at the time of direct communication. Assessment and Plan 66-year-old male with a past medical history of hypertension, hyperlipidemia, obstructive sleep apnea, polycystic liver disease, obesity, GERD, history of kidney stones, history of thyroid disease status post thyroidectomy, scoliosis, history of tubular adenoma of the colon; presented to the hospital today with a chief complaint of chest pain. Noted to have COVID-19 positive admitted to the hospital for further management. New onset AFib with rapid ventricular response: Patient initial heart rate was in 170; received diltiazem IV push, diltiazem drip, digoxin; subsequently converted to normal sinus rhythm. Echocardiogram Cardiology consult Chest pain: Atypical in nature. Currently resolved. EKG nonischemic. Troponins negative. morphine p.r.n. COVID-19 positive: Patient saturating at 88% on room air. Placed on supplemental oxygen. Not in respiratory distress. Continue Decadron Will empirically start the patient on ceftriaxone azithromycin until the procalcitonin comes back. If negative will discontinue antibiotics. Patient has been symptomatic with COVID fetus- since 06/23/2021. Tested positive on 06/26/2021. Id consult for further recommendations. Pulmonary embolism: Patient started on therapeutic Lovenox. Will continue to monitor. History of thyroid disease status post thyroidectomy: TSH within normal limits. History of hypertension: Will hold the patient's home antihypertensives for now given soft blood pressure. DVT prophylaxis: Patient on Lovenox Code status: Full code Quality Stroke Does the patient have a stroke diagnosis?: No VTE Prior VTE?: No VTE Risk Level:: Medical - moderate - high VTE Device Contraindication: Treatment Not Indicated VTE Drug Contraindication: N/A - Med Ordered
[2021-06-26 20:48] LABS: INTERNATIONAL NORM RATIO 1.3 (0.9-1.1); Prothrombin Time 14.6 SEC (9.9-13.0)
[2021-06-26] MEDS: cefTRIAXone sodium 1 GM in 0.9 % Sodium Chloride 50 ML IV (21:03)
[2021-06-26] MEDS: Enoxaparin Sodium 120 MG/0.8 ML SYRINGE 110 MG SUBCUT (21:05)
--- NOTE | 2021-06-26 21:13 | PC.NURSE ---
patient a&ox3, vss, iv antibiotics running per order, call schwartz within reach, will continue to monitor.
[2021-06-26 21:23] LABS: Procalcitonin 0.05 ng/mL
[2021-06-26] MEDS: Azithromycin 500 MG in 0.9 % Sodium Chloride 250 ML 125 MG IV (21:58)
--- NOTE | 2021-06-26 22:01 | PC.NURSE ---
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
[2021-06-27] VITALS (9 sets, daily range): BP systolic 113–138; BP diastolic 50–85; PULSE 64–85; RESP 16–20; TEMP 36.4–37.2; O2SAT 91–97
[2021-06-27] MEDS: Acetaminophen 325 MG TABLET 650 MG PO ×2 (02:24→20:53)
[2021-06-27 07:18] LABS: MANUAL DIFF FLAG NO
[2021-06-27 07:27] LABS: Hematocrit 41.5 % (42.0-52.0); Hemoglobin 13.5 g/dl (14.0-18.0); Imm Gran Abs Auto 0.01 X10*3/uL (0.00-0.03); Imm Gran Pct Auto 0.3 % (0.0-0.4); Lymphocytes Absolute Auto 0.5 X10*3/uL (1.2-4.9); Lymphocytes Percent Auto 13.9 % (20-40); Mean Corpuscular HGB Conc 32.5 g/dl (31.0-36.0); Mean Corpuscular Hemoglobin 29.7 pg (27.0-33.0); Mean Corpuscular Volume 91.4 fL (80.0-98.0); Mean Platelet Volume 11.1 fL (9.4-12.4); Monocytes Absolute Auto 0.3 X10*3/uL (0.1-1.2); Monocytes Percent Auto 8.3 % (2-11); Neutrophils Absolute Auto 2.5 x10*3/uL (2.0-8.3); Neutrophils Percent Auto 77.5 % (45-73); Platelet Count 132 X10*3/uL (160-400); Red Blood Count 4.54 X10*6/uL (4.60-5.80); Red Cell Distribution Width 14.8 % (11.0-16.0); White Blood Count 3.2 X10*3/uL (4.8-10.8)
[2021-06-27 07:34] LABS: Anion Gap 13 (12-20); Blood Urea Nitrogen 23 mg/dL (9-16); Calcium 8.2 mg/dL (8.4-10.2); Carbon Dioxide 21 mmol/L (22-29); Chloride 112 mmol/L (96-108); Creatinine Clr Calc Pharmacy 106.5; Estimated Glomerular Filt Rate > 60; Glucose Random 153 mg/dL (60-115); Potassium 4.2 mmol/L (3.3-5.1); Sodium 142 mmol/L (135-145)
[2021-06-27] MEDS: 0.9 % Sodium Chloride Flush 3 ML SYRINGE IVFLUSH ×3 (09:14→20:54)
[2021-06-27] MEDS: Enoxaparin Sodium 120 MG/0.8 ML SYRINGE 110 MG SUBCUT (09:14)
[2021-06-27] MEDS: Atorvastatin Calcium 10 MG TABLET PO (09:15)
[2021-06-27] MEDS: allopurinoL 100 MG TABLET PO (09:15)
[2021-06-27] MEDS: dexAMETHasone sod phosphate 4 MG/ML VIAL 6 MG IVPUSH (09:16)
--- NOTE | 2021-06-27 10:26 | P.CONCA_ITS ---
History of Present Illness History of Present Illness Date of Service: 06/27/21 Requesting physician: Fausto Hsu Chief complaint: Atrial fibrillation with rapid ventricular respons Narrative: I was requested to see can it in cardiology consultation today johnau se of atrial fibrillation rapid ventricular response with left bundle-branch block. He is a 66-year-old male who came to the hospital with progressive symptoms of shortness of breath and body aches and cough productive of phlegm was subsequently diagnosed with COVID pneumonia as well as possible small pulmonary embolism. On presentation he was having chest pain and at that time was noted to have rapid heart rate consistent with atrial fibrillation with left bundle-branch block. He was treated after consultation with me with IV Cardizem and IV Cardizem drip but remained in rapid ventricular response and subsequently was given 2 doses of IV digoxin. Converted to sinus rhythm after that. Left bundle-branch block dissipated. His troponins are 21.2 and 32.6. EKG does not show any significant ischemic changes after conversion. He has been started on subcu Lovenox. Today complains of mostly shortness of breath. Denies any chest pain or palpitations. No prior cardiac history is of irregular heartbeat, congestive heart failure, coronary artery disease, stroke. Review of Systems Constitutional: Constitutional: Reports body ache(s), Reports chills, Reports fatigue and Reports fever(s) Eyes: Eyes: Reports no additional eye complaints ENT: Reports system reviewed and no additional complaints, except as documented Cardiovascular: Cardiovascular: Reports chest pain, Denies palpitations and Reports dyspnea Respiratory: Respiratory: Reports no additional respiratory complaints, Reports cough, Reports excessive phlegm production and Reports dyspnea Gastrointestinal: Gastrointestinal: Reports no additional gastrointestinal complaints Genitourinary: Genitourinary: Reports no additional male genitourinary complaints Musculoskeletal: Musculoskeletal: Reports no additional musculoskeletal complaints Integumentary/Breasts: Skin/Breast: Reports system reviewed and no additional complaints, except as docu Neurologic: Reports system reviewed and no additional complaints, except as documented Psychiatric: Psychiatric: Reports no additional psychiatric complaints Endocrine: Endocrine: Reports no additional endocrine complaints, Reports fatigue and Denies palpitations Hematologic/Lymphatic: Hematologic/Lymphatic: Reports no additional hematologic/lymphatic complaints Allergic/Immunologic: Allergic/Immunologic: Reports no additional allergic/immunologic complaints PMFSH Past Medical History Medical History GERD (gastroesophageal reflux disease) History of kidney stones Hypercholesterolemia Hypertension Obesity Obstructive sleep apnea Polycystic liver disease Scoliosis Tubular adenoma of colon Family History Family History Father Medical history unknown Mother Medical history unknown Surgical History Surgical History History of lithotripsy History of removal of cyst History of thyroidectomy Social History Social History Alcohol intake: current Alcohol intake frequency: holidays/special occasions only Patient Tobacco Use Status: Never used Tobacco Use of substances other than those prescribed or required for medical reasons: No Advance Directives: No Advance Directives Information Provided: No Meds Allergies Allergy/AdvReac Type Severity Reaction Status Date / Time No Known Allergies Allergy Verified 05/23/21 15:16 [No Known Allergies*] Active Medications: Current Medications Acetaminophen (Acetaminophen 325 Mg Tablet) 650 mg PO Q6H PRN PRN Reason: Pain, Mild (Pain Scale 1-3) Last Admin: 06/27/21 02:24 Dose: 650 mg Documented by: Allopurinol (Allopurinol 100 Mg Tablet) 100 mg PO DAILY [facility] Last Admin: 06/27/21 09:15 Dose: 100 mg Documented by: Atorvastatin Calcium (Atorvastatin Calcium 10 Mg Tablet) 10 mg PO DAILY [facility] Last Admin: 06/27/21 09:15 Dose: 10 mg Documented by: Dexamethasone Sodium Phosphate (Dexamethasone Sod Phosphate 4 Mg/Ml Vial) 6 mg IVPUSH DAILY [facility] Last Admin: 06/27/21 09:16 Dose: 6 mg Documented by: Enoxaparin Sodium (Enoxaparin Sodium 120 Mg/0.8 Ml Syringe) 110 mg SUBCUT Q12H [facility] Last Admin: 06/27/21 09:14 Dose: 110 mg Documented by: Diltiazem HCl 125 mg/ Sodium (Chloride) 125 mls @ 0 mls/hr IVCONT .Q0M [facility]; Protocol Last Titration: 06/26/21 20:52 Dose: Infused Documented by: Ceftriaxone Sodium 1 gm/ (Sodium Chloride) 50 mls @ 100 mls/hr IV Q24H [facility] Azithromycin 500 mg/ Sodium (Chloride) 250 mls @ 125 mls/hr IV Q24H [facility] Melatonin (Melatonin 3 Mg Tablet) 6 mg PO BEDTIME PRN PRN Reason: Insomnia Morphine Sulfate (Morphine Sulfate 4 Mg/Ml Cartridge) 1 mg IVPUSH Q4H PRN; Protocol PRN Reason: Pain, SOB Pharmacy Consult (Consult Rx Perform Med Rec) 1 each MISCELLANE ONCE PRN PRN Reason: Consult order Senna (Sennosides 8.6 Mg Tablet) 17.2 mg PO BEDTIME PRN PRN Reason: Constipation Sodium Chloride (0.9 % Sodium Chloride Flush 3 Ml Syringe) 3 [facility] Last Admin: 06/27/21 09:14 Dose: 3 ml Documented by: Home Medications Medication Instructions Recorded Confirmed Last Taken Type amlodipine 2.5 mg tablet 2.5 mg PO DAILY 05/08/20 06/26/21 Unknown History niacin 500 mg tablet 500 mg PO DAILY 05/08/20 06/26/21 Unknown History omega-3 fatty acids 1,000 mg 1,000 mg PO DAILY 05/08/20 06/26/21 Unknown History capsule (Fish Oil Concentrate) vitamins A,C,P-jkan-wlwuzc 14,320 1 cap PO ONCE cap 05/08/20 06/26/21 Unknown History unit-226 mg-200 unit capsule (PreserVision AREDS) potassium citrate 10 mEq (1,080 20 meq PO TID 06/26/21 06/26/21 Unknown History mg) tablet,extended release (Urocit-K 10) Physical Exam Vital Signs: Vital Signs: Last Vital Signs Temp 98.1 F 06/27/21 07:11 Pulse 74 06/27/21 07:11 Resp 20 06/27/21 07:11 BP 123/74 06/27/21 07:11 Pulse Ox 95 06/27/21 07:11 BMI result Body Mass Index 31.8 Const: General: cooperative, comfortable, no acute distress, alert and awake Nutritional Appearance: overweight Orientation/consciousness: patient oriented x3 HENMT: Head: Yes normocephalic and Yes atraumatic Neck: Neck: Yes trachea midline, Yes supple and Yes no JVD Chest: Chest palpation & inspection: normal inspection of the chest Resp: Effort & Inspection: normal respiratory effort Auscultation: bronchial breath sounds Cardio: Jugular venous distension: no JVD Palpation: normal PMI Rate: regular rate Rhythm: regular rhythm Heart sounds: S1 normal heart sound present, S2 normal heart sound present, no click, no gallops, no murmurs and no rubs GI: Auscultation: normal bowel sounds Skin: General skin exam: no rashes or lesions noted Neuro: General: patient oriented x3 and no focal motor deficits Extrem: General: Yes no clubbing, cyanosis or edema Objective Labs and Meds Result diagrams: 06/27/21 06:33 06/27/21 06:33 Lab results: Laboratory Results - last 24 hr 06/26/21 06/26/21 06/26/21 15:42 15:42 15:42 WBC 5.6 RBC 5.03 Hgb 15.3 Hct 44.7 MCV 88.9 MCH 30.4 MCHC 34.2 RDW 14.7 Plt Count 132 L MPV 10.8 Immature Gran % (Auto) 0.3 Neut % (Auto) 79.7 H Lymph % (Auto) 9.6 L [place] % (Auto) 10.0 Eos % (Auto) 0.2 Baso % (Auto) 0.2 Lymph # (Auto) 0.6 L [place] # (Auto) 0.6 Eos # (Auto) 0.0 Baso # (Auto) 0.0 Abs Immat Gran (auto) 0.02 Absolute Neuts (auto) 4.6 Absolute Nucleated RBC 0.020 H Nucleated RBC % (auto) 0.3 H Smear Tech's Comments VERIFIED PT 13.8 H INR 1.2 H APTT 30.9 D-Dimer High Sensitivty 443 Sodium 141 Potassium 4.2 Chloride 109 H Carbon Dioxide 21 L Anion Gap 15 BUN 20 H Creatinine 1.19 Estim Creat Clear Calc 81.4 Estimated GFR > 60 Random Glucose 136 H Lactic Acid Calcium 8.4 D Magnesium 2.1 Ferritin 563 H Total Bilirubin 1.3 H Direct Bilirubin 0.6 H AST 36 D ALT 29 Alkaline Phosphatase 74 Lactate Dehydrogenase 352 H Troponin I High Sens C-Reactive Protein 1.76 H B-Natriuretic Peptide Total Protein 6.3 L Albumin 3.7 Procalcitonin TSH 3.97 COVID-19 ([facility]) COVID-19 Clin Com 06/26/21 06/26/21 06/26/21 15:42 15:42 15:56 WBC RBC Hgb Hct MCV MCH MCHC RDW Plt Count MPV Immature Gran % (Auto) Neut % (Auto) Lymph % (Auto) [place] % (Auto) Eos % (Auto) Baso % (Auto) Lymph # (Auto) [place] # (Auto) Eos # (Auto) Baso # (Auto) Abs Immat Gran (auto) Absolute Neuts (auto) Absolute Nucleated RBC Nucleated RBC % (auto) Smear Tech's Comments PT INR APTT D-Dimer High Sensitivty Sodium Potassium Chloride Carbon Dioxide Anion Gap BUN Creatinine Estim Creat Clear Calc Estimated GFR Random Glucose Lactic Acid 1.7 Calcium Magnesium Ferritin Total Bilirubin Direct Bilirubin AST ALT Alkaline Phosphatase Lactate Dehydrogenase Troponin I High Sens 21.2 C-Reactive Protein B-Natriuretic Peptide 16 Total Protein Albumin Procalcitonin TSH COVID-19 ([facility]UELLE) Positive A [facility]-19 Clin Com See Note 06/26/21 06/26/21 06/26/21 19:04 20:35 20:35 WBC RBC Hgb Hct MCV MCH MCHC RDW Plt Count MPV Immature Gran % (Auto) Neut % (Auto) Lymph % (Auto) [place] % (Auto) Eos % (Auto) Baso % (Auto) Lymph # (Auto) [place] # (Auto) Eos # (Auto) Baso # (Auto) Abs Immat Gran (auto) Absolute Neuts (auto) Absolute Nucleated RBC Nucleated RBC % (auto) Smear Tech's Comments PT 14.6 H INR 1.3 H APTT D-Dimer High Sensitivty Sodium Potassium Chloride Carbon Dioxide Anion Gap BUN Creatinine Estim Creat Clear Calc Estimated GFR Random Glucose Lactic Acid Calcium Magnesium Ferritin Total Bilirubin Direct Bilirubin AST ALT Alkaline Phosphatase Lactate Dehydrogenase Troponin I High Sens 32.6 D C-Reactive Protein B-Natriuretic Peptide Total Protein Albumin Procalcitonin 0.05 TSH COVID-19 ([facility]) COVID-19 Clin Com 06/27/21 06/27/21 06:33 06:33 WBC 3.2 L RBC 4.54 L Hgb 13.5 L Hct 41.5 L MCV 91.4 MCH 29.7 MCHC 32.5 RDW 14.8 Plt Count 132 L MPV 11.1 Immature Gran % (Auto) 0.3 Neut % (Auto) 77.5 H Lymph % (Auto) 13.9 L [place] % (Auto) 8.3 Eos % (Auto) 0.0 Baso % (Auto) 0.0 Lymph # (Auto) 0.5 L [place] # (Auto) 0.3 Eos # (Auto) 0.0 Baso # (Auto) 0.0 Abs Immat Gran (auto) 0.01 Absolute Neuts (auto) 2.5 Absolute Nucleated RBC 0.000 Nucleated RBC % (auto) 0.0 Smear Tech's Comments PT INR APTT D-Dimer High Sensitivty Sodium 142 Potassium 4.2 Chloride 112 H Carbon Dioxide 21 L Anion Gap 13 BUN 23 H Creatinine 0.91 Estim Creat Clear Calc 106.5 Estimated GFR > 60 Random Glucose 153 H Lactic Acid Calcium 8.2 L Magnesium Ferritin Total Bilirubin Direct Bilirubin AST ALT Alkaline Phosphatase Lactate Dehydrogenase Troponin I High Sens C-Reactive Protein B-Natriuretic Peptide Total Protein Albumin Procalcitonin TSH COVID-19 ([facility]) COVID-19 Clin Com Imaging Radiologist's impression: Impressions Chest X-Ray 06/26/21 16:16 IMPRESSION: Multifocal airspace opacities concerning for Covid pneumonia in the appropriate clinical context. Chest CTA 06/26/21 18:02 IMPRESSION: Questionable nonocclusive right apical pulmonary emboli. No central pulmonary emboli nor evidence of increased right-sided heart pressures. Multifocal airspace opacities with trace amount of bilateral pleural fluid concerning for a diffuse infectious or inflammatory processes such as Covid pneumonia. Calcified pleural plaques. Correlate with prior treatment for history of asbestosis. Asymmetrically enlarged and heterogeneous left lobe of the thyroid. If not already obtained, consider correlation with a nonemergent thyroid ultrasound. VTE: positive This critical result was discussed with Dr Meléndez at 06/26/2021 6:48 PM and it was ascertained that the content and urgency of the report was understood at the time of direct communication. Assessment and Plan (1) Paroxysmal atrial fibrillation: Status: Acute Patient present with hypoxia and COVID pneumonia, with atrial fibrillation rapid ventricular response, paroxysmal controlled with rate control and conve rted to sinus rhythm. Chest pain could be related to rapid heart rate or due to pleuritic chest pain related to COVID pneumonia. Unclear. No significant elevation troponins at this point in time. For now would switch him to p.o. metoprolol as tolerated 25 mg p.o. q.6 hours. Agree with Lovenox but can switch to oral anticoagulation, given his underlying PE can not give him Xarelto 50 mg b.i.d. for 21 days followed by 20 mg daily. CHADSVASc score of 2. Would most likely need long-term oral anticoagulation. Will require echocardiogram however given his COVID positive status at this point time can pursue it as outpatient in few days. This was discussed with him. He understands and agrees. Check TSH. Continue treat with supportive care for underlying COVID pneumonia as per hospitalist team. If he has recurrent atrial fibrillation please consult us may require antiarrhythmic drug therapy. Will sign of the case (2) Left bundle branch block: Status: Acute Left bundle-branch block which appears to be due to rapid ventricular response and rate-related. Given his chest pain as well as multiple risk factors outpatient stress test with myocardial perfusion imaging will pursued once his COVID pneumonia has resolved and he is clinically doing better. Continue aggressive control blood pressure. A patient Holter monitor will be pursued as well. Will follow as need be. Thank you for allowing me to partake in his care Procedures Date of Service Date of Service: 06/27/21
--- NOTE | 2021-06-27 10:50 | MHC.CM.PN ---
Addendum entered by Sandie Alvarado 06/27/21 11:42: CM RECEIVED A RETURN CALL FROM PTS , ANNA CASTILLO REPORTS AT BASELINE PT IS INDEPENDENT, WORKS AND DRIVES SHE REPORTS PT HAS A CPAP FOR DME AND NO HOME/COMMUNITY SERVICES SHE REPORTS PT IS ACTIVE WITH [facility] FOR PRIMARY CARE ANNA DOES NOT THINK THE PT HAS A HCP COMPLETED ANNA EXPRESSES CONCERN THAT SHE WOULD NOT BE ABLE TO CARE FOR PT IF HE RETURNED TOO SOON SHE IS ALSO COVID + AND NOT FEELING WELL CURRENT DC PLAN IS HOME WITH NO SERVICES TRANSPORT TBD, ANNA REPORTS SHE IS UNSURE HOW HE WILL GET HOME AT THIS TIME Original Note: PT DOES NOT HAVE A CELL PHONE NUMBER LISTED CM ATTEMPTED TO CONTACT PTS , ANNA [phone]. VM MESSAGE LEFT REQUESTING A RETURN CALL
--- NOTE | 2021-06-27 12:01 | PC.NURSE ---
pt reports that the pain in his chest is getting worse pain at 6/10, mostly when taking a deep breath in
[2021-06-27] MEDS: Morphine Sulfate 4 MG/ML CARTRIDGE 1 MG IVPUSH (12:09)
--- NOTE | 2021-06-27 14:22 | PC.NURSE ---
pt reports feeling a little better after the morphine pain at 4/10, vs stable
--- NOTE | 2021-06-27 15:50 | P.PNIM_ITS ---
Subjective Subjective Date of Service: 06/27/21 Interval History: No acute issues overnight stay spontaneous conversion to normal sinus rhythm. Cardizem drip DC'd Review of Systems Denies chest pain Denies shortness of breath Denies nausea vomiting diarrhea Physical Exam Vital Signs: Vital Signs: Last Vital Signs Temp 98.1 F 06/27/21 07:11 Pulse 80 06/27/21 14:23 Resp 18 06/27/21 14:23 BP 130/85 06/27/21 14:23 Pulse Ox 93 06/27/21 14:23 BMI result Body Mass Index 31.8 Const: Other: No acute issues Resp: Other: Clear to auscultation bilaterally no rales rhonchi wheezes Cardio: Other: Regular rate and rhythm; no S4; positive S1-S2; no S3 murmurs rubs or gallops GI: Other: Soft nontender nondistended with normoactive bowel sounds. No rebound or guarding Neuro: Other: Cranial nerves 2-12 grossly intact as tested. Motor is 5/5 all extremities. Sensation intact. [place] appropriate Extrem: Other: No edema bilateral Objective Data Active Medications Acetaminophen (Acetaminophen 325 Mg Tablet) 650 mg PO Q6H PRN PRN Reason: Pain, Mild (Pain Scale 1-3) Last Admin: 06/27/21 02:24 Dose: 650 mg Documented by: CLARITA Allopurinol (Allopurinol 100 Mg Tablet) 100 mg PO DAILY [facility] Last Admin: 06/27/21 09:15 Dose: 100 mg Documented by: HAL Atorvastatin Calcium (Atorvastatin Calcium 10 Mg Tablet) 10 mg PO DAILY [facility] Last Admin: 06/27/21 09:15 Dose: 10 mg Documented by: HAL Dexamethasone Sodium Phosphate (Dexamethasone Sod Phosphate 4 Mg/Ml Vial) 6 mg IVPUSH DAILY [facility] Last Admin: 06/27/21 09:16 Dose: 6 mg Documented by: HAL Enoxaparin Sodium (Enoxaparin Sodium 120 Mg/0.8 Ml Syringe) 110 mg SUBCUT Q12H [facility] Last Admin: 06/27/21 09:14 Dose: 110 mg Documented by: HAL Diltiazem HCl 125 mg/ Sodium (Chloride) 125 mls @ 0 mls/hr IVCONT .Q0M [facility]; Protocol Last Titration: 06/26/21 20:52 Dose: 0 mg/hr, 0 mls/hr Documented by: LETICIA Ceftriaxone Sodium 1 gm/ (Sodium Chloride) 50 mls @ 100 mls/hr IV Q24H [facility] Azithromycin 500 mg/ Sodium (Chloride) 250 mls @ 125 mls/hr IV Q24H [facility] Melatonin (Melatonin 3 Mg Tablet) 6 mg PO BEDTIME PRN PRN Reason: Insomnia Morphine Sulfate (Morphine Sulfate 4 Mg/Ml Cartridge) 1 mg IVPUSH Q4H PRN; Protocol PRN Reason: Pain, SOB Last Admin: 06/27/21 12:09 Dose: 1 mg Documented by: HAL Pharmacy Consult (Consult Rx Perform Med Rec) 1 each MISCELLANE ONCE PRN PRN Reason: Consult order Senna (Sennosides 8.6 Mg Tablet) 17.2 mg PO BEDTIME PRN PRN Reason: Constipation Sodium Chloride (0.9 % Sodium Chloride Flush 3 Ml Syringe) 3 ml IVFLUSH QSHIFT [facility] Last Admin: 06/27/21 09:14 Dose: 3 ml Documented by: HAL Labs CBC & Chem 7: 06/27/21 06:33 06/27/21 06:33 Labs: Laboratory Results - last 24 hr 06/26/21 06/26/21 06/26/21 15:42 15:42 15:42 MCV 88.9 MCH 30.4 MCHC 34.2 RDW 14.7 Plt Count 132 L MPV 10.8 Immature Gran % (Auto) 0.3 Neut % (Auto) 79.7 H Lymph % (Auto) 9.6 L [place] % (Auto) 10.0 Eos % (Auto) 0.2 Baso % (Auto) 0.2 Lymph # (Auto) 0.6 L [place] # (Auto) 0.6 Eos # (Auto) 0.0 Baso # (Auto) 0.0 Abs Immat Gran (auto) 0.02 Absolute Neuts (auto) 4.6 Absolute Nucleated RBC 0.020 H Nucleated RBC % (auto) 0.3 H Smear Tech's Comments VERIFIED PT 13.8 H INR 1.2 H APTT 30.9 D-Dimer High Sensitivty 443 Anion Gap 15 Estim Creat Clear Calc 81.4 Estimated GFR > 60 Random Glucose 136 H Lactic Acid Calcium 8.4 D Magnesium 2.1 Ferritin 563 H Total Bilirubin 1.3 H Direct Bilirubin 0.6 H AST 36 D ALT 29 Alkaline Phosphatase 74 Lactate Dehydrogenase 352 H Troponin I High Sens C-Reactive Protein 1.76 H B-Natriuretic Peptide Total Protein 6.3 L Albumin 3.7 Procalcitonin TSH 3.97 COVID-19 ([facility]) COVID-19 Clin Com 06/26/21 06/26/21 06/26/21 15:42 15:42 15:56 MCV MCH MCHC RDW Plt Count MPV Immature Gran % (Auto) Neut % (Auto) Lymph % (Auto) [place] % (Auto) Eos % (Auto) Baso % (Auto) Lymph # (Auto) [place] # (Auto) Eos # (Auto) Baso # (Auto) Abs Immat Gran (auto) Absolute Neuts (auto) Absolute Nucleated RBC Nucleated RBC % (auto) Smear Tech's Comments PT INR APTT D-Dimer High Sensitivty Anion Gap Estim Creat Clear Calc Estimated GFR Random Glucose Lactic Acid 1.7 Calcium Magnesium Ferritin Total Bilirubin Direct Bilirubin AST ALT Alkaline Phosphatase Lactate Dehydrogenase Troponin I High Sens 21.2 C-Reactive Protein B-Natriuretic Peptide 16 Total Protein Albumin Procalcitonin TSH COVID-19 ([facility]) Positive A COVID-19 Clin Com See Note 06/26/21 06/26/21 06/26/21 19:04 20:35 20:35 MCV MCH MCHC RDW Plt Count MPV Immature Gran % (Auto) Neut % (Auto) Lymph % (Auto) [place] % (Auto) Eos % (Auto) Baso % (Auto) Lymph # (Auto) [place] # (Auto) Eos # (Auto) Baso # (Auto) Abs Immat Gran (auto) Absolute Neuts (auto) Absolute Nucleated RBC Nucleated RBC % (auto) Smear Tech's Comments PT 14.6 H INR 1.3 H APTT D-Dimer High Sensitivty Anion Gap Estim Creat Clear Calc Estimated GFR Random Glucose Lactic Acid Calcium Magnesium Ferritin Total Bilirubin Direct Bilirubin AST ALT Alkaline Phosphatase Lactate Dehydrogenase Troponin I High Sens 32.6 D C-Reactive Protein B-Natriuretic Peptide Total Protein Albumin Procalcitonin 0.05 TSH COVID-19 ([facility]) COVID-19 Clin Com 06/27/21 06/27/21 06:33 06:33 MCV 91.4 MCH 29.7 MCHC 32.5 RDW 14.8 Plt Count 132 L MPV 11.1 Immature Gran % (Auto) 0.3 Neut % (Auto) 77.5 H Lymph % (Auto) 13.9 L [place] % (Auto) 8.3 Eos % (Auto) 0.0 Baso % (Auto) 0.0 Lymph # (Auto) 0.5 L [place] # (Auto) 0.3 Eos # (Auto) 0.0 Baso # (Auto) 0.0 Abs Immat Gran (auto) 0.01 Absolute Neuts (auto) 2.5 Absolute Nucleated RBC 0.000 Nucleated RBC % (auto) 0.0 Smear Tech's Comments PT INR APTT D-Dimer High Sensitivty Anion Gap 13 Estim Creat Clear Calc 106.5 Estimated GFR > 60 Random Glucose 153 H Lactic Acid Calcium 8.2 L Magnesium Ferritin Total Bilirubin Direct Bilirubin AST ALT Alkaline Phosphatase Lactate Dehydrogenase Troponin I High Sens C-Reactive Protein B-Natriuretic Peptide Total Protein Albumin Procalcitonin TSH COVID-19 ([facility]) COVID-19 Clin Com Assessment and Plan (1) Paroxysmal atrial fibrillation: Status: Acute (2) COVID-19: Status: Acute (3) Pulmonary embolism: Status: Acute Assessment and Plan: 66-year-old male presents with worsening shortness of breath body aches and cough over the last 5 days prior to admission. COVID swab in the emergency room positive. Given shortness of breath CTA was done which demonstrated likely pulmonary emboli along with a right lower lobe pneumonia. Also, patient was in atrial fibrillation with rapid ventricular response upon arrival. Cardizem drip was started and patient subsequently converted to normal sinus rhythm overnight and has remained in the same 1. COVID-19 pneumonia Continue azithromycin and ceftriaxone as ordered Dexamethasone 6 mg IV daily/nebs/titrate O2 to sats greater than or equal to 92% 2. Paroxysmal atrial fibrillation Now in normal sinus rhythm; given COVID-19 status will pursue outpatient workup including echo and monitor Chads Vasc 2; will anticoagulate with Xarelto full dose given pulmonary embolus 3. Pulmonary embolus Xarelto 50 mg p.o. b.i.d. times 21 days followed by 20 mg daily which can be instituted by primary care physician\ 4. Hypertension Acceptable control on current therapies; continue outpatient dosing and adjust as indicated Full code Xarelto Quality Stroke Does the patient have a stroke diagnosis?: No VTE Prior VTE?: No VTE Risk Level:: Medical - moderate - high VTE Device Contraindication: Treatment Not Indicated VTE Drug Contraindication: N/A - Med Ordered
--- NOTE | 2021-06-27 16:20 | P.CNID_ITS ---
History of Present Illness Data of Consult Service Date: 06/27/21 Requesting physician: Elfego Clarke Primary Care Provider: Unknown Physician HPI Reason for consult: chest pain He presents with 7/10 chest pain since 06/23 and was diagnosed with COVID on 06/23 He has no productive sputum and no specific lobar infiltrate He has LFTs unremarkable Review of Systems Verdana 4l Review of Systems: Yes all other systems are reviewed and Verdana 4d are negative PMFSH Past Medical History Medical History (Updated 07/16/21 @ 13:09 by Bhakti Reyes MD) Acute respiratory failure with hypoxia Atrial fibrillation with rapid ventricular response Bacteremia GERD (gastroesophageal reflux disease) Hip pain History of kidney stones Hypercholesterolemia Hypertension Left bundle branch block Obesity Obstructive sleep apnea Polycystic liver disease Scoliosis Tubular adenoma of colon Family History Family History Father Medical history unknown Mother Medical history unknown Surgical History Surgical History History of lithotripsy History of removal of cyst History of thyroidectomy Social History Social History Household Members: Spouse Housing: House Do you presently have visiting nurse or other home services: No Alcohol intake: current Alcohol intake frequency: holidays/special occasions only Patient Tobacco Use Status: Never used Tobacco e-Cigarette/Vaping Use: Never Used Second Hand Smoke Exposure: No Current occupational status: employed Meds Allergies Allergy/AdvReac Type Severity Reaction Status Date / Time No Known Allergies Allergy Verified 07/16/21 12:38 [No Known Allergies*] Active Medications: Current Medications Acetaminophen (Acetaminophen 325 Mg Tablet) 650 mg PO Q6H PRN PRN Reason: Pain, Mild (Pain Scale 1-3) Last Admin: 06/27/21 02:24 Dose: 650 mg Documented by: Allopurinol (Allopurinol 100 Mg Tablet) 100 mg PO DAILY [facility] Last Admin: 06/27/21 09:15 Dose: 100 mg Documented by: Atorvastatin Calcium (Atorvastatin Calcium 10 Mg Tablet) 10 mg PO DAILY [facility] Last Admin: 06/27/21 09:15 Dose: 10 mg Documented by: Dexamethasone Sodium Phosphate (Dexamethasone Sod Phosphate 4 Mg/Ml Vial) 6 mg IVPUSH DAILY [facility] Last Admin: 06/27/21 09:16 Dose: 6 mg Documented by: Diltiazem HCl 125 mg/ Sodium (Chloride) 125 mls @ 0 mls/hr IVCONT .Q0M [facility]; Protocol Last Titration: 06/26/21 20:52 Dose: Infused Documented by: Ceftriaxone Sodium 1 gm/ (Sodium Chloride) 50 mls @ 100 mls/hr IV Q24H [facility]ES[facility] Azithromycin 500 mg/ Sodium (Chloride) 250 mls @ 125 mls/hr IV Q24H [facility] Melatonin (Melatonin 3 Mg Tablet) 6 mg PO BEDTIME PRN PRN Reason: Insomnia Morphine Sulfate (Morphine Sulfate 4 Mg/Ml Cartridge) 1 mg IVPUSH Q4H PRN; Protocol PRN Reason: Pain, SOB Last Admin: 06/27/21 12:09 Dose: 1 mg Documented by: Pharmacy Consult (Consult Rx Perform Med Rec) 1 each MISCELLANE ONCE PRN PRN Reason: Consult order Rivaroxaban (Rivaroxaban 15 Mg Tablet) 15 mg PO BIDWM [facility] Senna (Sennosides 8.6 Mg Tablet) 17.2 mg PO BEDTIME PRN PRN Reason: Constipation Sodium Chloride (0.9 % Sodium Chloride Flush 3 Ml Syringe) 3 ml IVFLUSH QSHIFT [facility] Last Admin: 06/27/21 09:14 Dose: 3 ml Documented by: Home Medications Medication Instructions Recorded Confirmed Last Taken Type amlodipine 2.5 mg 2.5 mg PO DAILY 05/08/20 07/16/21 Unknown History tablet niacin 500 mg 500 mg PO DAILY 05/08/20 07/16/21 Unknown History tablet omega-3 fatty 1,000 mg PO 05/08/20 07/16/21 Unknown History acids 1,000 mg DAILY capsule (Fish Oil Concentrate) vitamins 1 cap PO ONCE 05/08/20 07/16/21 Unknown History A,C,K-[id number] cap 14,320 unit-226 mg-200 unit capsule (PreserVision AREDS) potassium citrate 20 meq PO TID 06/26/21 07/16/21 Unknown History 10 mEq (1,080 mg) tablet,extended release (Urocit-K 10) Physical Exam Verdana 4l Vital Signs: Verdana 4d Verdana 4d Vital Signs: Verdana 4d Verdana 4Bd Last Vital Signs Verdana 4d Assistant Media Planner New 4d Assistant Media Planner New 4d Temp 98.1 F 06/27/21 07:11 Assistant Media Planner New 4d Pulse 80 06/27/21 14:23 Assistant Media Planner New 4d Resp 18 06/27/21 14:23 BP 130/85 06/27/21 14:23 Pulse Ox 93 06/27/21 14:23 BMI result Body Mass Index 31.8 Const: General: cooperative Eyes: Pupils: Equal, round and reactive pupils present Resp: Effort & Inspection: able to speak in complete sentences Cardio: Rate: regular rate Rhythm: regular rhythm GI: Palpation (GI): nontender Neuro: Cranial nerves: Yes Equal, round and reactive pupils present Extrem: General: Yes normal to inspection Results Labs CBC & Chem 7: 07/02/21 05:55 07/02/21 05:54 Labs: Short CBC 06/26/21 06/27/21 Range/Units 15:42 06:33 WBC 5.6 3.2 L (4.8-10.8) X10*3/uL Hgb 15.3 13.5 L (14.0-18.0) g/dl Hct 44.7 41.5 L (42.0-52.0) % Plt Count 132 L 132 L (160-400) X10*3/uL BMP 06/26/21 06/27/21 15:42 06:33 Sodium 141 142 Potassium 4.2 4.2 Chloride 109 H 112 H Carbon Dioxide 21 L 21 L BUN 20 H 23 H Creatinine 1.19 0.91 Calcium 8.4 D 8.2 L Liver Function 06/26/21 Range/Units 15:42 Total Bilirubin 1.3 H (0.0-1.0) mg/dL Direct Bilirubin 0.6 H (0.0-0.5) mg/dL AST 36 D (5-37) U/L ALT 29 (0-40) U/L Alkaline Phosphatase 74 (39-117) U/L Albumin 3.7 (3.5-5.0) g/dL Assessment and Plan (1) Pulmonary embolism: Qualifiers: Pulmonary embolism type: single subsegmental (without acute cor pulmonale) Qualified Code(s): I26.93 - Single subsegmental pulmonary embolism without acute cor pulmonale Status: Acute (2) COVID-19: Status: Acute He has Covid with mild hypoxia He has been on 2 liters oxygen He has PE likely related to COVID thrombotic event He has normal procalcitonin and no signs of bacterial pneumonia with normal procalcitonin and no purulent sputum He does have burgundy urine at bedside and may be dehydrated Plan Oxygen as needed Dexamethasone Remdesivir ordered No Baricitinib at this time May stop antibiotics as no signs of superinfection
[2021-06-27] MEDS: Rivaroxaban 15 MG TABLET PO (17:15)
--- NOTE | 2021-06-27 17:45 | PC.NURSE ---
report given to imc rn
[2021-06-27 20:33] LABS: Prothrombin Time 23.5 SEC (9.9-13.0)
[2021-06-27] MEDS: Remdesivir 200 MG in 0.9 % Sodium Chloride 210 ML 105 MG IV (20:53)
[2021-06-28 03:39] VITALS: BP 113/60; PULSE 68; RESP 16; TEMP 36.5; O2SAT 94
[2021-06-28 06:59] LABS: MANUAL DIFF FLAG NO
[2021-06-28 07:08] VITALS: BP 141/73; PULSE 72; RESP 16; TEMP 36.8; O2SAT 92
[2021-06-28 07:12] LABS: Basophils Percent Auto 0.1 % (0-2); Hematocrit 40.2 % (42.0-52.0); Hemoglobin 13.5 g/dl (14.0-18.0); Imm Gran Abs Auto 0.03 X10*3/uL (0.00-0.03); Imm Gran Pct Auto 0.4 % (0.0-0.4); Lymphocytes Absolute Auto 0.6 X10*3/uL (1.2-4.9); Lymphocytes Percent Auto 8.6 % (20-40); Mean Corpuscular HGB Conc 33.6 g/dl (31.0-36.0); Mean Corpuscular Hemoglobin 30.1 pg (27.0-33.0); Mean Corpuscular Volume 89.5 fL (80.0-98.0); Mean Platelet Volume 10.6 fL (9.4-12.4); Monocytes Absolute Auto 0.6 X10*3/uL (0.1-1.2); Neutrophils Absolute Auto 5.8 x10*3/uL (2.0-8.3); Neutrophils Percent Auto 81.9 % (45-73); Platelet Count 159 X10*3/uL (160-400); Red Blood Count 4.49 X10*6/uL (4.60-5.80); Red Cell Distribution Width 14.3 % (11.0-16.0); White Blood Count 7.1 X10*3/uL (4.8-10.8)
[2021-06-28 07:24] LABS: Alanine Aminotransferase 27 U/L (0-40); Albumin Level 3.3 g/dL (3.5-5.0); Alkaline Phosphatase 61 U/L (39-117); Anion Gap 9 (12-20); Aspartate Amino Transferase 27 U/L (5-37); Blood Urea Nitrogen 24 mg/dL (9-16); Calcium 8.6 mg/dL (8.4-10.2); Carbon Dioxide 24 mmol/L (22-29); Chloride 114 mmol/L (96-108); Creatinine Clr Calc Pharmacy 118.2; Estimated Glomerular Filt Rate > 60; Glucose Fasting 123 mg/dL (60-99); Potassium 4.1 mmol/L (3.3-5.1); Sodium 143 mmol/L (135-145); Total Protein 5.5 g/dL (6.5-8.0)
[2021-06-28] MEDS: Atorvastatin Calcium 10 MG TABLET PO (08:09)
[2021-06-28] MEDS: allopurinoL 100 MG TABLET PO (08:09)
[2021-06-28] MEDS: Acetaminophen 325 MG TABLET 650 MG PO (08:09)
[2021-06-28] MEDS: dexAMETHasone sod phosphate 4 MG/ML VIAL 6 MG IVPUSH (08:09)
[2021-06-28] MEDS: Rivaroxaban 15 MG TABLET PO ×2 (08:09→16:47)
[2021-06-28] MEDS: 0.9 % Sodium Chloride Flush 3 ML SYRINGE IVFLUSH ×3 (08:10→20:37)
[2021-06-28 11:26] VITALS: BP 121/75; PULSE 72; RESP 20; TEMP 36.7; O2SAT 94
--- NOTE | 2021-06-28 15:00 | P.PNIM_ITS ---
Subjective Subjective Date of Service: 06/28/21 Interval History: No acute issues overnight; shortness of breath with exertion improving Review of Systems Denies chest pain Exertional shortness of breath; improving No nausea vomiting diarrhea Physical Exam Vital Signs: Vital Signs: Last Vital Signs Temp 98.0 F 06/28/21 11:26 Pulse 72 06/28/21 11:26 Resp 20 06/28/21 11:26 BP 121/75 06/28/21 11:26 Pulse Ox 94 06/28/21 11:26 BMI result Body Mass Index 31.8 Const: Other: No acute issues Resp: Other: Clear to auscultation bilaterally no rales rhonchi wheezes Cardio: Other: Regular rate and rhythm; no S4; positive S1-S2; no S3 murmurs rubs or gallops GI: Other: Soft nontender nondistended with normoactive bowel sounds. No rebound or guarding Neuro: Other: Cranial nerves 2-12 grossly intact as tested. Motor is 5/5 all extremities. Sensation intact. [place] appropriate Extrem: Other: No edema bilateral Objective Data Active Medications Acetaminophen (Acetaminophen 325 Mg Tablet) 650 mg PO Q6H PRN PRN Reason: Pain, Mild (Pain Scale 1-3) Last Admin: 06/28/21 08:09 Dose: 650 mg Documented by: HARRISON Allopurinol (Allopurinol 100 Mg Tablet) 100 mg PO DAILY [facility] Last Admin: 06/28/21 08:09 Dose: 100 mg Documented by: HARRISON Atorvastatin Calcium (Atorvastatin Calcium 10 Mg Tablet) 10 mg PO DAILY [facility] Last Admin: 06/28/21 08:09 Dose: 10 mg Documented by: HARRISON Dexamethasone Sodium Phosphate (Dexamethasone Sod Phosphate 4 Mg/Ml Vial) 6 mg IVPUSH DAILY [facility] Last Admin: 06/28/21 08:09 Dose: 6 mg Documented by: HARRISON Diltiazem HCl 125 mg/ Sodium (Chloride) 125 mls @ 0 mls/hr IVCONT .Q0M [facility]; Protocol Last Titration: 06/26/21 20:52 Dose: 0 mg/hr, 0 mls/hr Documented by: LETICIA Remdesivir 100 mg/ Sodium (Chloride) 230 mls @ 115 mls/hr IV Q24H [facility] Stop: 07/01/21 19:59 Melatonin (Melatonin 3 Mg Tablet) 6 mg PO BEDTIME PRN PRN Reason: Insomnia Morphine Sulfate (Morphine Sulfate 4 Mg/Ml Cartridge) 1 mg IVPUSH Q4H PRN; Protocol PRN Reason: Pain, SOB Last Admin: 06/27/21 12:09 Dose: 1 mg Documented by: HAL Pharmacy Consult (Consult Rx Perform Med Rec) 1 each MISCELLANE ONCE PRN PRN Reason: Consult order Rivaroxaban (Rivaroxaban 15 Mg Tablet) 15 mg PO BIDWM [facility] Last Admin: 06/28/21 08:09 Dose: 15 mg Documented by: HARRISON Senna (Sennosides 8.6 Mg Tablet) 17.2 mg PO BEDTIME PRN PRN Reason: Constipation Sodium Chloride (0.9 % Sodium Chloride Flush 3 Ml Syringe) 3 ml IVFLUSH QSHIFT [facility] Last Admin: 06/28/21 08:10 Dose: 3 ml Documented by: HARRISON Labs CBC & Chem 7: 06/28/21 06:16 06/28/21 06:16 Labs: Laboratory Results - last 24 hr 06/27/21 06/28/21 06/28/21 20:21 06:16 06:16 MCV 89.5 MCH 30.1 MCHC 33.6 RDW 14.3 Plt Count 159 L MPV 10.6 Immature Gran % (Auto) 0.4 Neut % (Auto) 81.9 H Lymph % (Auto) 8.6 L [place] % (Auto) 9.0 Eos % (Auto) 0.0 Baso % (Auto) 0.1 Lymph # (Auto) 0.6 L [place] # (Auto) 0.6 Eos # (Auto) 0.0 Baso # (Auto) 0.0 Abs Immat Gran (auto) 0.03 Absolute Neuts (auto) 5.8 Absolute Nucleated RBC 0.000 Nucleated RBC % (auto) 0.0 PT 23.5 H INR 2.0 H Anion Gap 9 L Estim Creat Clear Calc 118.2 Estimated GFR > 60 Fasting Glucose 123 H Calcium 8.6 Total Bilirubin 1.0 AST 27 ALT 27 Alkaline Phosphatase 61 Total Protein 5.5 L Albumin 3.3 L Microbiology Microbiology Results: Microbiology 06/26/21 20:32 Blood Culture - Preliminary Blood - Venous No growth after 24 hours. 06/26/21 20:32 Blood Culture - Preliminary Blood - Venous No growth after 24 hours. 06/26/21 15:58 Blood Culture - Preliminary Blood - Venous No growth after 24 hours. 06/26/21 15:42 Blood Culture - Preliminary Blood - Venous No growth after 24 hours. Assessment and Plan (1) Paroxysmal atrial fibrillation: Status: Acute (2) COVID-19: Status: Acute (3) Pulmonary embolism: Status: Acute Assessment and Plan: 66-year-old male presents with worsening shortness of breath body aches and co ugh over the last 5 days prior to admission. COVID swab in the emergency room positive. Given shortness of breath CTA was done which demonstrated likely pulmonary emboli along with a right lower lobe pneumonia. Also, patient was in atrial fibrillation with rapid ventricular response upon arrival. Cardizem drip was started and patient subsequently converted to normal sinus rhythm overnight and has remained in the same 1. COVID-19 pneumonia Continue azithromycin and ceftriaxone as ordered Dexamethasone 6 mg IV daily/nebs/titrate O2 to sats greater than or equal to 92% Home O2 eval in a.m. 2. Paroxysmal atrial fibrillation Now in normal sinus rhythm; given COVID-19 status will pursue outpatient workup including echo and monitor Chads Vasc 2; will anticoagulate with Xarelto full dose given pulmonary embolus 3. Pulmonary embolus Xarelto 50 mg p.o. b.i.d. times 21 days followed by 20 mg daily which can be instituted by primary care physician\ 4. Hypertension Acceptable control on current therapies; continue outpatient dosing and adjust as indicated Full code Xarelto Quality Stroke Does the patient have a stroke diagnosis?: No VTE Prior VTE?: No VTE Risk Level:: Medical - moderate - high VTE Device Contraindication: Treatment Not Indicated VTE Drug Contraindication: N/A - Med Ordered
[2021-06-28 15:31] VITALS: BP 118/72; PULSE 77; RESP 18; TEMP 37.1; O2SAT 96
[2021-06-28] MEDS: Remdesivir 100 MG in 0.9 % Sodium Chloride 230 ML 115 MG IV (17:52)
[2021-06-28 19:20] VITALS: BP 128/69; PULSE 66; RESP 19; TEMP 37.1; O2SAT 98
[2021-06-28 23:53] VITALS: BP 119/66; PULSE 63; RESP 17; TEMP 36.5; O2SAT 97
[2021-06-29 03:48] VITALS: BP 132/70; PULSE 64; RESP 17; TEMP 36.4; O2SAT 95
[2021-06-29 06:40] LABS: MANUAL DIFF FLAG NO
[2021-06-29 06:44] LABS: Hematocrit 40.2 % (42.0-52.0); Hemoglobin 13.4 g/dl (14.0-18.0); Imm Gran Abs Auto 0.03 X10*3/uL (0.00-0.03); Imm Gran Pct Auto 0.5 % (0.0-0.4); Lymphocytes Absolute Auto 0.7 X10*3/uL (1.2-4.9); Mean Corpuscular HGB Conc 33.3 g/dl (31.0-36.0); Mean Corpuscular Volume 89.9 fL (80.0-98.0); Mean Platelet Volume 10.3 fL (9.4-12.4); Monocytes Absolute Auto 0.6 X10*3/uL (0.1-1.2); Monocytes Percent Auto 10.1 % (2-11); Neutrophils Absolute Auto 4.7 x10*3/uL (2.0-8.3); Neutrophils Percent Auto 77.4 % (45-73); Platelet Count 180 X10*3/uL (160-400); Red Blood Count 4.47 X10*6/uL (4.60-5.80); Red Cell Distribution Width 14.4 % (11.0-16.0)
[2021-06-29 07:14] LABS: Alanine Aminotransferase 29 U/L (0-40); Albumin Level 3.1 g/dL (3.5-5.0); Alkaline Phosphatase 56 U/L (39-117); Anion Gap 10 (12-20); Aspartate Amino Transferase 25 U/L (5-37); Blood Urea Nitrogen 25 mg/dL (9-16); Calcium 8.3 mg/dL (8.4-10.2); Carbon Dioxide 23 mmol/L (22-29); Chloride 116 mmol/L (96-108); Creatinine Clr Calc Pharmacy 124.2; Estimated Glomerular Filt Rate > 60; Glucose Fasting 101 mg/dL (60-99); Potassium 3.8 mmol/L (3.3-5.1); Sodium 145 mmol/L (135-145); Total Protein 5.2 g/dL (6.5-8.0)
[2021-06-29 08:00] VITALS: BP 127/62; PULSE 71; RESP 21; TEMP 36.7; O2SAT 95
[2021-06-29] MEDS: dexAMETHasone sod phosphate 4 MG/ML VIAL 6 MG IVPUSH (10:16)
[2021-06-29] MEDS: Atorvastatin Calcium 10 MG TABLET PO (10:16)
[2021-06-29] MEDS: 0.9 % Sodium Chloride Flush 3 ML SYRINGE IVFLUSH ×3 (10:16→20:00)
[2021-06-29] MEDS: allopurinoL 100 MG TABLET PO (10:16)
[2021-06-29] MEDS: Rivaroxaban 15 MG TABLET PO ×2 (10:16→16:45)
[2021-06-29] MEDS: Acetaminophen 325 MG TABLET 650 MG PO (10:26)
[2021-06-29 11:58] VITALS: BP 118/64; PULSE 68; RESP 22; TEMP 36.8; O2SAT 95
[2021-06-29 15:58] VITALS: BP 130/70; PULSE 71; RESP 18; TEMP 37.1; O2SAT 93
--- NOTE | 2021-06-29 16:22 | HO.PM.IMPN ---
Subjective Subjective Date of Service: 06/29/21 Interval History: Failed home O2 eval this a.m.. Extremely short of breath with productive cough with minimal exertion Review of Systems Denies chest pain Denies abdominal pain Denies nausea vomiting diarrhea Physical Exam Vital Signs: Vital Signs: Last Vital Signs Temp 98.8 F 06/29/21 15:58 Pulse 71 06/29/21 15:58 Resp 18 06/29/21 15:58 BP 130/70 06/29/21 15:58 Pulse Ox 93 06/29/21 15:58 BMI result Body Mass Index 31.8 Const: Other: No acute issues Resp: Other: Clear to auscultation bilaterally no rales rhonchi wheezes Cardio: Other: Regular rate and rhythm; no S4; positive S1-S2; no S3 murmurs rubs or gallops GI: Other: Soft nontender nondistended with normoactive bowel sounds. No rebound or guarding Neuro: Other: Cranial nerves 2-12 grossly intact as tested. Motor is 5/5 all extremities. Sensation intact. [place] appropriate Extrem: Other: No edema bilateral Objective Data Active Medications Acetaminophen (Acetaminophen 325 Mg Tablet) 650 mg PO Q6H PRN PRN Reason: Pain, Mild (Pain Scale 1-3) Last Admin: 06/29/21 10:26 Dose: 650 mg Documented by: MANUEL Allopurinol (Allopurinol 100 Mg Tablet) 100 mg PO DAILY [facility] Last Admin: 06/29/21 10:16 Dose: 100 mg Documented by: MANUEL Atorvastatin Calcium (Atorvastatin Calcium 10 Mg Tablet) 10 mg PO DAILY [facility] Last Admin: 06/29/21 10:16 Dose: 10 mg Documented by: MANUEL Dexamethasone Sodium Phosphate (Dexamethasone Sod Phosphate 4 Mg/Ml Vial) 6 mg IVPUSH DAILY [facility] Last Admin: 06/29/21 10:16 Dose: 6 mg Documented by: MANUEL Diltiazem HCl 125 mg/ Sodium (Chloride) 125 mls @ 0 mls/hr IVCONT .Q0M [facility]; Protocol Last Titration: 06/26/21 20:52 Dose: 0 mg/hr, 0 mls/hr Documented by: LETICIA Remdesivir 100 mg/ Sodium (Chloride) 230 mls @ 115 mls/hr IV Q24H [facility] Stop: 07/01/21 19:59 Last Infusion: 06/28/21 20:37 Dose: 0 mls/hr Documented by: MIKE Melatonin (Melatonin 3 Mg Tablet) 6 mg PO BEDTIME PRN PRN Reason: Insomnia Morphine Sulfate (Morphine Sulfate 4 Mg/Ml Cartridge) 1 mg IVPUSH Q4H PRN; Protocol PRN Reason: Pain, SOB Last Admin: 06/27/21 12:09 Dose: 1 mg Documented by: HAL Pharmacy Consult (Consult Rx Perform Med Rec) 1 each MISCELLANE ONCE PRN PRN Reason: Consult order Rivaroxaban (Rivaroxaban 15 Mg Tablet) 15 mg PO BIDWM [facility] Last Admin: 06/29/21 10:16 Dose: 15 mg Documented by: MANUEL Senna (Sennosides 8.6 Mg Tablet) 17.2 mg PO BEDTIME PRN PRN Reason: Constipation Sodium Chloride (0.9 % Sodium Chloride Flush 3 Ml Syringe) 3 ml IVFLUSH QSHIFT [facility] Last Admin: 06/29/21 10:16 Dose: 3 ml Documented by: MANUEL Labs CBC & Chem 7: 06/29/21 06:08 06/29/21 06:08 Labs: Laboratory Results - last 24 hr 06/29/21 06/29/21 06:08 06:08 MCV 89.9 MCH 30.0 MCHC 33.3 RDW 14.4 Plt Count 180 MPV 10.3 Immature Gran % (Auto) 0.5 H Neut % (Auto) 77.4 H Lymph % (Auto) 12.0 L [place] % (Auto) 10.1 Eos % (Auto) 0.0 Baso % (Auto) 0.0 Lymph # (Auto) 0.7 L [place] # (Auto) 0.6 Eos # (Auto) 0.0 Baso # (Auto) 0.0 Abs Immat Gran (auto) 0.03 Absolute Neuts (auto) 4.7 Absolute Nucleated RBC 0.000 Nucleated RBC % (auto) 0.0 Anion Gap 10 L Estim Creat Clear Calc 124.2 Estimated GFR > 60 Fasting Glucose 101 H Calcium 8.3 L Total Bilirubin 1.0 AST 25 ALT 29 Alkaline Phosphatase 56 Total Protein 5.2 L Albumin 3.1 L Microbiology Microbiology Results: Microbiology 06/26/21 20:32 Blood Culture - Preliminary Blood - Venous Prelim: GPR Gram Stain only 06/26/21 20:32 Blood Culture - Preliminary Blood - Venous No growth after 48 hours. 06/26/21 15:58 Blood Culture - Preliminary Blood - Venous No growth after 48 hours. 06/26/21 15:42 Blood Culture - Preliminary Blood - Venous No growth after 48 hours. Assessment and Plan (1) Paroxysmal atrial fibrillation: Status: Acute (2) COVID-19: Status: Acute (3) Pulmonary embolism: Status: Acute Assessment and Plan: 66-year-old male presents with worsening shortness of breath body aches and cough over the last 5 days prior to admission. COVID swab in the emergency room positive. Given shortness of breath CTA was done which demonstrated likely pulmonary emboli along with a right lower lobe pneumonia. Also, patient was in atrial fibrillation with rapid ventricular response upon arrival. Cardizem drip was started and patient subsequently converted to normal sinus rhythm overnight and has remained in the same 1. COVID-19 pneumonia Continue azithromycin and ceftriaxone as ordered Dexamethasone 6 mg IV daily/nebs/titrate O2 to sats greater than or equal to 92% Failed home O2 eval. . . Continue current therapies 2. Paroxysmal atrial fibrillation Now in normal sinus rhythm; given COVID-19 status will pursue outpatient workup including echo and monitor Chads Vasc 2; will anticoagulate with Xarelto full dose given pulmonary embolus 3. Pulmonary embolus Xarelto 50 mg p.o. b.i.d. times 21 days followed by 20 mg daily which can be instituted by primary care physician\ 4. Hypertension Acceptable control on current therapies; continue outpatient dosing and adjust as indicated Full code Xarelto Quality Stroke Does the patient have a stroke diagnosis?: No VTE Prior VTE?: No VTE Risk Level:: Medical - moderate - high VTE Device Contraindication: Treatment Not Indicated VTE Drug Contraindication: N/A - Med Ordered
[2021-06-29] MEDS: Remdesivir 100 MG in 0.9 % Sodium Chloride 230 ML 115 MG IV (16:45)
[2021-06-29 19:33] VITALS: BP 127/64; PULSE 78; RESP 18; TEMP 36.6; O2SAT 96
[2021-06-29 23:44] VITALS: BP 109/64; PULSE 68; RESP 18; TEMP 36.1; O2SAT 98
[2021-06-30 01:22] VITALS: RESP 18
[2021-06-30 03:24] VITALS: BP 126/71; PULSE 64; RESP 18; TEMP 36.7; O2SAT 97
[2021-06-30 06:52] LABS: MANUAL DIFF FLAG NO
[2021-06-30 07:00] LABS: Eosinophils Percent Auto 0.3 % (0-4); Hematocrit 41.4 % (42.0-52.0); Hemoglobin 13.7 g/dl (14.0-18.0); Imm Gran Abs Auto 0.05 X10*3/uL (0.00-0.03); Imm Gran Pct Auto 0.8 % (0.0-0.4); Lymphocytes Absolute Auto 0.9 X10*3/uL (1.2-4.9); Lymphocytes Percent Auto 14.7 % (20-40); Mean Corpuscular HGB Conc 33.1 g/dl (31.0-36.0); Mean Corpuscular Hemoglobin 29.7 pg (27.0-33.0); Mean Corpuscular Volume 89.8 fL (80.0-98.0); Mean Platelet Volume 10.4 fL (9.4-12.4); Monocytes Absolute Auto 0.6 X10*3/uL (0.1-1.2); Monocytes Percent Auto 9.1 % (2-11); Neutrophils Absolute Auto 4.7 x10*3/uL (2.0-8.3); Neutrophils Percent Auto 75.1 % (45-73); Platelet Count 207 X10*3/uL (160-400); Red Blood Count 4.61 X10*6/uL (4.60-5.80); Red Cell Distribution Width 14.6 % (11.0-16.0); White Blood Count 6.3 X10*3/uL (4.8-10.8)
[2021-06-30 07:33] LABS: Alanine Aminotransferase 91 U/L (0-40); Albumin Level 3.2 g/dL (3.5-5.0); Alkaline Phosphatase 60 U/L (39-117); Anion Gap 11 (12-20); Aspartate Amino Transferase 95 U/L (5-37); Bilirubin Total 1.1 mg/dL (0.0-1.0); Blood Urea Nitrogen 24 mg/dL (9-16); Calcium 8.7 mg/dL (8.4-10.2); Carbon Dioxide 22 mmol/L (22-29); Chloride 116 mmol/L (96-108); Creatinine Clr Calc Pharmacy 122.7; Estimated Glomerular Filt Rate > 60; Glucose Fasting 106 mg/dL (60-99); Potassium 3.8 mmol/L (3.3-5.1); Sodium 145 mmol/L (135-145); Total Protein 5.5 g/dL (6.5-8.0)
[2021-06-30 08:00] VITALS: BP 132/68; PULSE 84; RESP 18; TEMP 36.7; O2SAT 96
[2021-06-30] MEDS: dexAMETHasone sod phosphate 4 MG/ML VIAL 6 MG IVPUSH (08:52)
[2021-06-30] MEDS: 0.9 % Sodium Chloride Flush 3 ML SYRINGE IVFLUSH ×3 (08:52→20:48)
[2021-06-30] MEDS: Atorvastatin Calcium 10 MG TABLET PO (08:53)
[2021-06-30] MEDS: Rivaroxaban 15 MG TABLET PO ×2 (08:53→16:38)
[2021-06-30] MEDS: allopurinoL 100 MG TABLET PO (08:53)
[2021-06-30 11:43] VITALS: BP 109/57; PULSE 69; RESP 18; TEMP 36.8; O2SAT 98
--- NOTE | 2021-06-30 12:17 | P.PNIM_ITS ---
Subjective Subjective Date of Service: 06/30/21 Interval History: no acute issues overnight. Still remains acute short of breath with minimal exertion Review of Systems denies chest pain Admits shortness of breath with minimal exertion Denies nausea vomiting diarrhea Physical Exam Vital Signs: Vital Signs: Last Vital Signs Temp 98.3 F 06/30/21 11:43 Pulse 69 06/30/21 11:43 Resp 18 06/30/21 11:43 BP 109/57 L 06/30/21 11:43 Pulse Ox 98 06/30/21 11:43 BMI result Body Mass Index 31.8 Const: Other: No acute issues Resp: Other: Clear to auscultation bilaterally no rales rhonchi wheezes Cardio: Other: Regular rate and rhythm; no S4; positive S1-S2; no S3 murmurs rubs or gallops GI: Other: Soft nontender nondistended with normoactive bowel sounds. No rebound or guarding Neuro: Other: Cranial nerves 2-12 grossly intact as tested. Motor is 5/5 all extremities. Sensation intact. [place] appropriate Extrem: Other: No edema bilateral Objective Data Active Medications Acetaminophen (Acetaminophen 325 Mg Tablet) 650 mg PO Q6H PRN PRN Reason: Pain, Mild (Pain Scale 1-3) Last Admin: 06/29/21 10:26 Dose: 650 mg Documented by: MANUEL Allopurinol (Allopurinol 100 Mg Tablet) 100 mg PO DAILY [facility] Last Admin: 06/30/21 08:53 Dose: 100 mg Documented by: ANTONY Atorvastatin Calcium (Atorvastatin Calcium 10 Mg Tablet) 10 mg PO DAILY [facility] Last Admin: 06/30/21 08:53 Dose: 10 mg Documented by: ANTONY Dexamethasone Sodium Phosphate (Dexamethasone Sod Phosphate 4 Mg/Ml Vial) 6 mg IVPUSH DAILY [facility] Last Admin: 06/30/21 08:52 Dose: 6 mg Documented by: ANTONY Diltiazem HCl 125 mg/ Sodium (Chloride) 125 mls @ 0 mls/hr IVCONT .Q0M [facility]; Protocol Last Titration: 06/26/21 20:52 Dose: 0 mg/hr, 0 mls/hr Documented by: LETICIA Remdesivir 100 mg/ Sodium (Chloride) 230 mls @ 115 mls/hr IV Q24H [facility] Stop: 07/01/21 19:59 Last Infusion: 06/29/21 19:54 Dose: 0 mls/hr Documented by: TRESA Melatonin (Melatonin 3 Mg Tablet) 6 mg PO BEDTIME PRN PRN Reason: Insomnia Morphine Sulfate (Morphine Sulfate 4 Mg/Ml Cartridge) 1 mg IVPUSH Q4H PRN; Protocol PRN Reason: Pain, SOB Last Admin: 06/27/21 12:09 Dose: 1 mg Documented by: HAL Pharmacy Consult (Consult Rx Perform Med Rec) 1 each MISCELLANE ONCE PRN PRN Reason: Consult order Rivaroxaban (Rivaroxaban 15 Mg Tablet) 15 mg PO BIDWM [facility] Last Admin: 06/30/21 08:53 Dose: 15 mg Documented by: ANTONY Senna (Sennosides 8.6 Mg Tablet) 17.2 mg PO BEDTIME PRN PRN Reason: Constipation Sodium Chloride (0.9 % Sodium Chloride Flush 3 Ml Syringe) 3 ml IVFLUSH QSHIFT [facility] Last Admin: 06/30/21 08:52 Dose: 3 ml Documented by: ANTONY Labs CBC & Chem 7: 06/30/21 06:33 06/30/21 06:33 Labs: Laboratory Results - last 24 hr 06/30/21 06/30/21 06:33 06:33 MCV 89.8 MCH 29.7 MCHC 33.1 RDW 14.6 Plt Count 207 MPV 10.4 Immature Gran % (Auto) 0.8 H Neut % (Auto) 75.1 H Lymph % (Auto) 14.7 L [place] % (Auto) 9.1 Eos % (Auto) 0.3 Baso % (Auto) 0.0 Lymph # (Auto) 0.9 L [place] # (Auto) 0.6 Eos # (Auto) 0.0 Baso # (Auto) 0.0 Abs Immat Gran (auto) 0.05 H Absolute Neuts (auto) 4.7 Absolute Nucleated RBC 0.000 Nucleated RBC % (auto) 0.0 Anion Gap 11 L Estim Creat Clear Calc 122.7 Estimated GFR > 60 Fasting Glucose 106 H Calcium 8.7 Total Bilirubin 1.1 H AST 95 H ALT 91 H Alkaline Phosphatase 60 Total Protein 5.5 L Albumin 3.2 L Microbiology Microbiology Results: Microbiology 06/26/21 20:32 Blood Culture - Preliminary Blood - Venous Prelim: GPC Gram Stain only 06/26/21 20:32 Blood Culture - Preliminary Blood - Venous Prelim: GPR Gram Stain only Assessment and Plan (1) Paroxysmal atrial fibrillation: Status: Acute (2) COVID-19: Status: Acute (3) Pulmonary embolism: Status: Acute (4) Bacteremia: Status: Acute Assessment and Plan: 66-year-old male presents with worsening shortness of breath body aches and cough over the last 5 days prior to admission. COVID swab in the emergency room positive. Given shortness of breath CTA was done which demonstrated likely pulmonary emboli along with a right lower lobe pneumonia. Also, patient was in atrial fibrillation with rapid ventricular response upon arrival. Cardizem drip was started and patient subsequently converted to normal sinus rhythm overnight and has remained in the same 1. COVID-19 pneumonia Dexamethasone 6 mg IV daily/nebs/titrate O2 to sats greater than or equal to 92% Failed home O2 eval. . . Continue current therapies 2. Paroxysmal atrial fibrillation Now in normal sinus rhythm; given COVID-19 status will pursue outpatient workup including echo and monitor Chads Vasc 2; will anticoagulate with Xarelto full dose given pulmonary embolus 3. Pulmonary embolus Xarelto 50 mg p.o. b.i.d. times 21 days followed by 20 mg daily which can be instituted by primary care physician\ 4. Hypertension Acceptable control on current therapies; continue outpatient dosing and adjust as indicated 5. bacteremia reported initially is Gram-positive cocci question Gram-positive rods. . . Vancomycin until identified Full code Xarelto Quality Stroke Does the patient have a stroke diagnosis?: No VTE Prior VTE?: No VTE Risk Level:: Medical - moderate - high VTE Device Contraindication: Treatment Not Indicated VTE Drug Contraindication: N/A - Med Ordered
--- NOTE | 2021-06-30 13:08 | PHA.PROG ---
Admission Date/Time: June 26, 2021 20:02 Indication: bacteremia Weight in k.491 kg Adjusted body weight in K.3 [place] body weight in K.2 Obesity Dosing Indication % IBW: Serum Creatinine - Last 168 Hours 06/26/21 06/27/21 06/28/21 15:42 06:33 06:16 Creatinine 1.19 0.91 0.82 06/29/21 06/30/21 06:08 06:33 Creatinine 0.78 0.79 Estimated CrCl and GFR - Last 168 Hours 06/26/21 06/27/21 06/28/21 15:42 06:33 06:16 Estim Creat Clear Calc 81.4 106.5 118.2 Estimated GFR > 60 > 60 > 60 06/29/21 06/30/21 06:08 06:33 Estim Creat Clear Calc 124.2 122.7 Estimated GFR > 60 > 60 Vancomycin Loading Dose: N Current Vancomycin Dosing Regimen: 1250 mg Q12H Vancomycin Monitoring using AUC goal of 400 - 600 range with trough as surrogate marker: predicted auc 546 with 400 after 36-48 hrs Date and Time for next Vancomycin Level to be drawn: 07/02/21 0000 Pharmacist Comments on Vancomycin Plan: Vancomycin dosing will take advantage of [employer] as a clinical decision support tool that uses Bayesian modeling to calculate individual patient's pharmacokinetic parameters and forecast the patient's drug concentration time course with the target goal AUC 24 range of 400 - 600 mg/L/hr.
--- NOTE | 2021-06-30 13:26 | P.PNID_ITS ---
Subjective Subjective Date of Service: 06/30/21 Critical Care Time (minutes): 15 Comment: on admission he had blood cultures done and two positive gram positive rods it doesnt look like listeria Objective Data Labs CBC & Chem 7: 06/30/21 06:33 06/30/21 06:33 Labs: Laboratory Results - last 24 hr 06/30/21 06/30/21 06:33 06:33 WBC 6.3 RBC 4.61 Hgb 13.7 L Hct 41.4 L MCV 89.8 MCH 29.7 MCHC 33.1 RDW 14.6 Plt Count 207 MPV 10.4 Immature Gran % (Auto) 0.8 H Neut % (Auto) 75.1 H Lymph % (Auto) 14.7 L [place] % (Auto) 9.1 Eos % (Auto) 0.3 Baso % (Auto) 0.0 Lymph # (Auto) 0.9 L [place] # (Auto) 0.6 Eos # (Auto) 0.0 Baso # (Auto) 0.0 Abs Immat Gran (auto) 0.05 H Absolute Neuts (auto) 4.7 Absolute Nucleated RBC 0.000 Nucleated RBC % (auto) 0.0 Sodium 145 Potassium 3.8 Chloride 116 H Carbon Dioxide 22 Anion Gap 11 L BUN 24 H Creatinine 0.79 Estim Creat Clear Calc 122.7 Estimated GFR > 60 Fasting Glucose 106 H Calcium 8.7 Total Bilirubin 1.1 H AST 95 H ALT 91 H Alkaline Phosphatase 60 Total Protein 5.5 L Albumin 3.2 L Microbiology Microbiology Results: Microbiology 06/26/21 20:32 Blood - Venous Blood Culture - Preliminary Gram positive latosha 06/26/21 20:32 Blood - Venous Blood Culture - Preliminary Gram positive latosha 06/26/21 15:58 Blood - Venous Blood Culture - Preliminary No growth after 48 hours. 06/26/21 15:42 Blood - Venous Blood Culture - Preliminary No growth after 48 hours. Physical Exam Vital Signs: Vital Signs: Last Vital Signs Temp 98.3 F 06/30/21 11:43 Pulse 69 06/30/21 11:43 Resp 18 06/30/21 11:43 BP 109/57 L 06/30/21 11:43 Pulse Ox 98 06/30/21 11:43 BMI result Body Mass Index 31.8 Const: General: cooperative Resp: Effort & Inspection: normal respiratory effort Cardio: Rate: regular rate Rhythm: regular rhythm GI: Palpation (GI): nontender Assessment and Plan Assessment and plan (1) Bacteremia: Status: Acute Assessment and Plan: this may be contaminant Workup in progress Assessment and Plan: Stop Vancomycin , Sendout will likely verify unusual organism 2/4 positive probably contaminant Time Spent With Patient Time: Total time spent is greater than 50% in coordination of care (as documented) at patient's floor/unit and/or counseling patient: Time with patient: 15 - 24 minutes
[2021-06-30 15:24] VITALS: BP 100/62; PULSE 80; RESP 20; TEMP 36.7; O2SAT 96
[2021-06-30] MEDS: Remdesivir 100 MG in 0.9 % Sodium Chloride 230 ML 115 MG IV (16:38)
[2021-06-30 19:30] VITALS: BP 121/65; PULSE 80; RESP 20; TEMP 36.7; O2SAT 94
[2021-07-01] VITALS (7 sets, daily range): BP systolic 106–120; BP diastolic 56–71; PULSE 66–86; RESP 17–20; TEMP 36.4–37.3; O2SAT 95–99
[2021-07-01 06:43] LABS: Hemoglobin 13.9 g/dl (14.0-18.0); Mean Corpuscular HGB Conc 32.3 g/dl (31.0-36.0); Mean Corpuscular Hemoglobin 29.5 pg (27.0-33.0); Mean Corpuscular Volume 91.3 fL (80.0-98.0); Mean Platelet Volume 10.2 fL (9.4-12.4); Platelet Count 246 X10*3/uL (160-400); Red Blood Count 4.71 X10*6/uL (4.60-5.80); Red Cell Distribution Width 14.5 % (11.0-16.0)
[2021-07-01 08:36] LABS: Alanine Aminotransferase 147 U/L (0-40); Albumin Level 3.1 g/dL (3.5-5.0); Alkaline Phosphatase 61 U/L (39-117); Anion Gap 9 (12-20); Aspartate Amino Transferase 92 U/L (5-37); Blood Urea Nitrogen 24 mg/dL (9-16); C Reactive Protein 0.17 mg/dL (< or = 0.50); Calcium 8.7 mg/dL (8.4-10.2); Carbon Dioxide 26 mmol/L (22-29); Chloride 113 mmol/L (96-108); Creatinine Clr Calc Pharmacy 110.1; Estimated Glomerular Filt Rate > 60; Glucose Random 95 mg/dL (60-115); Magnesium 2.1 mg/dL (1.6-2.6); Potassium 3.7 mmol/L (3.3-5.1); Sodium 144 mmol/L (135-145); Total Protein 5.4 g/dL (6.5-8.0)
[2021-07-01] MEDS: Rivaroxaban 15 MG TABLET PO ×2 (09:35→17:51)
[2021-07-01] MEDS: dexAMETHasone sod phosphate 4 MG/ML VIAL 6 MG IVPUSH (09:35)
[2021-07-01] MEDS: Atorvastatin Calcium 10 MG TABLET PO (09:35)
[2021-07-01] MEDS: allopurinoL 100 MG TABLET PO (09:35)
[2021-07-01] MEDS: 0.9 % Sodium Chloride Flush 3 ML SYRINGE IVFLUSH ×2 (09:36→17:51)
[2021-07-01] MEDS: Morphine Sulfate 4 MG/ML CARTRIDGE 1 MG IVPUSH (09:59)
--- NOTE | 2021-07-01 11:27 | P.PNIM_ITS ---
Subjective Subjective Date of Service: 07/01/21 Interval History: Dyspnea improved. Still has a lot of cough. Off supplemental O2. No recurrence of AF Review of Systems Review of Systems: Yes all other systems are reviewed and are negative Physical Exam Vital Signs: Vital Signs: Last Vital Signs Temp 98.0 F 07/01/21 08:00 Pulse 73 07/01/21 08:00 Resp 18 07/01/21 08:00 BP 112/66 07/01/21 08:00 Pulse Ox 96 07/01/21 08:00 BMI result Body Mass Index 31.8 Gen: in no acute distress HEENT: sclera anicteric, moist mucus membranes Neck: supple Lungs: clear to auscultation bilaterally Heart: regular rate and rhythm, no murmurs Abd: soft, non-tender, non-distended Ext: no edema Skin: warm/well-perfused Neuro: alert and oriented x3, no focal findings Psych: appropriate affect Objective Data Active Medications Acetaminophen (Acetaminophen 325 Mg Tablet) 650 mg PO Q6H PRN PRN Reason: Pain, Mild (Pain Scale 1-3) Last Admin: 06/29/21 10:26 Dose: 650 mg Documented by: MANUEL Allopurinol (Allopurinol 100 Mg Tablet) 100 mg PO DAILY [facility] Last Admin: 07/01/21 09:35 Dose: 100 mg Documented by: RAHUL Atorvastatin Calcium (Atorvastatin Calcium 10 Mg Tablet) 10 mg PO DAILY [facility] Last Admin: 07/01/21 09:35 Dose: 10 mg Documented by: RAHUL Dexamethasone Sodium Phosphate (Dexamethasone Sod Phosphate 4 Mg/Ml Vial) 6 mg IVPUSH DAILY [facility] Last Admin: 07/01/21 09:35 Dose: 6 mg Documented by: RAHUL Diltiazem HCl 125 mg/ Sodium (Chloride) 125 mls @ 0 mls/hr IVCONT .Q0M [facility]; Protocol Last Titration: 06/26/21 20:52 Dose: 0 mg/hr, 0 mls/hr Documented by: LETICIA Remdesivir 100 mg/ Sodium (Chloride) 230 mls @ 115 mls/hr IV Q24H [facility] Stop: 07/01/21 19:59 Last Infusion: 06/30/21 18:39 Dose: 0 mls/hr Documented by: ANTONY Melatonin (Melatonin 3 Mg Tablet) 6 mg PO BEDTIME PRN PRN Reason: Insomnia Morphine Sulfate (Morphine Sulfate 4 Mg/Ml Cartridge) 1 mg IVPUSH Q4H PRN; Protocol PRN Reason: Pain, SOB Last Admin: 07/01/21 09:59 Dose: 1 mg Documented by: RAHUL Pharmacy Consult (Consult Rx Perform Med Rec) 1 each MISCELLANE ONCE PRN PRN Reason: Consult order Pharmacy Consult (Consult Rx Vancomycin Dosing) 1 each MISCELLANE DAILY PRN PRN Reason: Consult order Rivaroxaban (Rivaroxaban 15 Mg Tablet) 15 mg PO BIDWM [facility] Last Admin: 07/01/21 09:35 Dose: 15 mg Documented by: RAHUL Senna (Sennosides 8.6 Mg Tablet) 17.2 mg PO BEDTIME PRN PRN Reason: Constipation Sodium Chloride (0.9 % Sodium Chloride Flush 3 Ml Syringe) 3 ml IVFLUSH QSHIFT [facility] Last Admin: 07/01/21 09:36 Dose: 3 ml Documented by: RAHUL Labs CBC & Chem 7: 07/01/21 06:10 07/01/21 08:01 Labs: Laboratory Results - last 24 hr 07/01/21 07/01/21 06:10 08:01 MCV 91.3 MCH 29.5 MCHC 32.3 RDW 14.5 Plt Count 246 MPV 10.2 Absolute Nucleated RBC 0.000 Nucleated RBC % (auto) 0.0 Anion Gap 9 L Estim Creat Clear Calc 110.1 Estimated GFR > 60 Random Glucose 95 D Calcium 8.7 Magnesium 2.1 Total Bilirubin 1.0 AST 92 H ALT 147 H Alkaline Phosphatase 61 C-Reactive Protein 0.17 Total Protein 5.4 L Albumin 3.1 L Microbiology Microbiology Results: Microbiology 06/26/21 20:32 Blood Culture - Preliminary Blood - Venous Gram positive latosha 06/26/21 20:32 Blood Culture - Preliminary Blood - Venous Gram positive latosha Assessment and Plan (1) Paroxysmal atrial fibrillation: Status: Acute (2) COVID-19: Status: Acute (3) Pulmonary embolism: Status: Acute (4) Bacteremia: Status: Acute Assessment and Plan: hospital d#6 66yo unvaccinated M presenting after 5d of cough, dyspnea, amd myalgias admitted for Covid-19 with pulmonary emboli and AF/RVR # Covid-19 pneumonia - d#5 of dexamethasone, d#5/ of remdesivir # acute hypoxic respiratory failure - resolved, will order home O2 eval for am # PE - rivaroxaban 15 mg bid x21d then 20 mg daily # AF/RVR - was on diltiazem gtt, converted to NSR and has remained in NSR - outpt Cardiology f/u with echocardiogram + Holter monitor - anticoagulation with rivaroxaban # bacteremia - / Gram-positive rods, not Listeria, sent out for identification, per ID d/c antibiotics # VTE ppx - rivaroxaban Quality Stroke Does the patient have a stroke diagnosis?: No VTE Prior VTE?: No VTE Risk Level:: Medical - moderate - high VTE Device Contraindication: Treatment Not Indicated VTE Drug Contraindication: N/A - Med Ordered
[2021-07-01] MEDS: Remdesivir 100 MG in 0.9 % Sodium Chloride 230 ML 115 MG IV (17:51)
[2021-07-02 00:07] VITALS: RESP 20
[2021-07-02] MEDS: 0.9 % Sodium Chloride Flush 3 ML SYRINGE IVFLUSH ×2 (01:39→10:02)
[2021-07-02 04:00] VITALS: BP 118/53; PULSE 67; RESP 18; TEMP 36.2; O2SAT 98
[2021-07-02 06:47] LABS: Hematocrit 44.7 % (42.0-52.0); Hemoglobin 14.5 g/dl (14.0-18.0); Mean Corpuscular HGB Conc 32.4 g/dl (31.0-36.0); Mean Corpuscular Hemoglobin 29.3 pg (27.0-33.0); Mean Corpuscular Volume 90.3 fL (80.0-98.0); Mean Platelet Volume 10.1 fL (9.4-12.4); Platelet Count 270 X10*3/uL (160-400); Red Blood Count 4.95 X10*6/uL (4.60-5.80); Red Cell Distribution Width 14.4 % (11.0-16.0); White Blood Count 8.5 X10*3/uL (4.8-10.8)
[2021-07-02 07:25] LABS: Alanine Aminotransferase 128 U/L (0-40); Albumin Level 3.2 g/dL (3.5-5.0); Alkaline Phosphatase 65 U/L (39-117); Anion Gap 9 (12-20); Aspartate Amino Transferase 51 U/L (5-37); Bilirubin Total 1.2 mg/dL (0.0-1.0); Blood Urea Nitrogen 23 mg/dL (9-16); Calcium 8.7 mg/dL (8.4-10.2); Carbon Dioxide 26 mmol/L (22-29); Chloride 113 mmol/L (96-108); Creatinine Clr Calc Pharmacy 115.4; Estimated Glomerular Filt Rate > 60; Glucose Random 90 mg/dL (60-115); Magnesium 2.2 mg/dL (1.6-2.6); Potassium 4.2 mmol/L (3.3-5.1); Sodium 144 mmol/L (135-145); Total Protein 5.7 g/dL (6.5-8.0)
[2021-07-02 07:40] VITALS: BP 101/53; PULSE 75; RESP 20; TEMP 36.4; O2SAT 97
[2021-07-02 09:00] VITALS: PULSE 90; O2SAT 95
[2021-07-02 09:56] VITALS: BP 101/53; PULSE 75; O2SAT 97
[2021-07-02] MEDS: Rivaroxaban 15 MG TABLET PO (10:02)
[2021-07-02] MEDS: Atorvastatin Calcium 10 MG TABLET PO (10:02)
[2021-07-02] MEDS: allopurinoL 100 MG TABLET PO (10:02)
[2021-07-02] MEDS: dexAMETHasone sod phosphate 4 MG/ML VIAL 6 MG IVPUSH (10:02)
[2021-07-02 11:07] VITALS: BP 119/61; PULSE 80; RESP 20; TEMP 36.5; O2SAT 94
--- NOTE | 2021-07-02 11:32 | W.MHC.F2F ---
Service Date Service Date: 07/02/21 Encounter Date of encounter: 07/02/21 Reasons for Services Signs and symptoms assessed: respiratory status Reason for [facility]: medication treatment, teach disease management and other (respiratory monitoring) MD Overseeing Care: Bhakti Reyes Homebound: Leaving the home is medically contraindicated at this time without the asist of a device and/or another person due th the listed conditions above and below. Reason homebound: shortness of breath with minimal effort, immunosuppression / infection risk and weakness related to hospital stay Certification: Based on the above findings, I certify that this patient is confined to the home and needs intermittent [facility] care, physical therapy and/or speech therapy, or continues to need occupational therapy. The patient is under my care, and I have initiated the establishment of the plan of care. The patient will be followed by a physician who will periodically review the plan of care.
--- NOTE | 2021-07-02 11:48 | PM.DS ---
DS: Providers Provider Date of Service: 07/02/21 Date of admission: 06/26/21 20:02 Date of discharge: 07/02/21 Primary care physician: Bhakti Reyes MD Admitting clinician: Fausto Hsu Attending physician on admission: Fausto Hsu Consults: 06/26/21 20:22 Consult to Cardiology Routine Consulting Provider: Ezra Easton Reason for consultation: new onset AFib Consult to Infectious Diseases Routine Consulting Provider: Wilda Johnson Reason for consultation: COVID positive 06/30/21 12:43 Consult to Infectious Diseases Routine Consulting Provider: Wilda Johnson Reason for consultation: 2/2 gram postiive latosha in blood Attending physician on discharge: Susu Duncan Discharging clinician: Susu Duncan DS: Diagnosis Discharge Diagnosis (1) Paroxysmal atrial fibrillation: Status: Acute (2) COVID-19: Status: Acute (3) Pulmonary embolism: Status: Acute (4) Bacteremia: Status: Acute (5) Acute respiratory failure with hypoxia: Status: Acute DS: Summary Hospital Course Hospital Course: from admission H+P, 06/26/21: 66-year-old male with a past medical history of hypertension, hyperlipidemia, obstructive sleep apnea, polycystic liver disease, obesity, GERD, history of kidney stones, history of thyroid disease status post thyroidectomy, scoliosis, history of tubular adenoma of the colon; presented to the hospital today with a chief complaint of chest pain.? Patient was reportedly? has been having symptoms of generalized weakness, body aches, shortness of breath, malaise since June 23, 2021; today he had was tested positive for COVID-19; later in the day he developed acute chest pain associated with the shortness of breath and worsening chest pain on deep inspiration hence present to the ER for further evaluation.? Denies any radiation, denies any dizziness.? Reports having shortness of breath.? Denies any nausea vomiting or diaphoresis.? Chest pain is sharp In nature.? Improved after fentanyl in the ER.? Patient denies any chest pain at the time of my interview.? Patient reports that he has been having cough and shortness of breath denies any sputum production.? Had subjective fevers.? Denies any numbness tingling or focal weakness.? Denies any falls or trauma.? Review of all other systems is negative except mentioned above ER course: Per ER team ? Patient on presentation noted to be in distress secondary to the pain.? Given fentanyl with improvement in the pain.? present time patient noted to have stable? blood pressure, oxygenation at 88%-placed on supplemental oxygen; patient was initially noted to be mildly tachypneic and tachycardic; patient's tachycardia went up to 178; EKG showed AFib with concerns for left bundle branch block; -new onset AFib; patient was given diltiazem IV push with no significant improvement; followed by patient was placed on diltiazem drip -maxed out dosing but still patient heart rate earning in low 120s in AFib; followed by patient does noted to have blood pressure on the soft side.? Subsequently patient was given diltiazem? 0.25 mg x2 and then patient converted to normal sinus rhythm.? Follow-up EKG showed normal sinus rhythm and no ischemic changes.? Did not find any LBBB ? On repeat? EKG.? Patient's chest pain resolved. Patient COVID-[address] angio of the chest showed right upper lobe pulmonary embolism and findings concerning for COVID-19 infection.? Admitted for further management This 66yo unvaccinated M presenting after 5d of cough, dyspnea, amd myalgias was admitted for Covid-19 with hypoxia, pulmonary emboli, and AF/RVR. By problem: # Covid-19 pneumonia - Treated with 6 days of dexamethasone and 5 days of remdesivir. To complete 4 more days of dexamethasone at home upon discharge. Isolation precautions as per CDC guidelines. # acute hypoxic respiratory failure - Resolved and did not qualify for home oxygen. # PE - Treated with rivaroxaban 15 mg bid for 6 days- to take this dose for 15 more days then switch to 20 mg daily. # AF/RVR - After the IV diltiazem in the ED, he converted to NSR and remained in NSR. He was anticoagulated as above. He will undergo outpatient cardiology consultation with echocardiogram. # bacteremia - 2/4 cultures grew Gram-positive rods, not Listeria, sent out for identification. He was initially treated with vancomycin but per ID consultation, antibiotic treatment was discontinued. Likely contaminant but he should follow up with his primary care doctor for final results. Time Spent with Patient Time attestation: Total time spent providing and/or coordinating discharge services: Discharge coordination time: Greater than 30 minutes Quality: Stroke Does the patient have a stroke diagnosis?: No Physical Exam Vital Signs: Vital Signs: Last Vital Signs Temp 97.7 F 07/02/21 11:07 Pulse 80 07/02/21 11:07 Resp 20 07/02/21 11:07 BP 119/61 07/02/21 11:07 Pulse Ox 94 07/02/21 11:07 BMI result Body Mass Index 31.8 Gen: in no acute distress HEENT: sclera anicteric, moist mucus membranes Neck: supple Lungs: clear to auscultation bilaterally Heart: regular rate and rhythm, no murmurs Abd: soft, non-tender, non-distended Ext: no edema Skin: warm/well-perfused Neuro: alert and oriented x3, no focal findings Psych: appropriate affect DS: Data Data Completed and Pending Completed studies during hospitalization [Text1]: Laboratory Results WBC 8.5 X10*3/uL (4.8-10.8) 07/02/21 05:55 RBC 4.95 X10*6/uL (4.60-5.80) 07/02/21 05:55 Hgb 14.5 g/dl (14.0-18.0) 07/02/21 05:55 Hct 44.7 % (42.0-52.0) 07/02/21 05:55 MCV 90.3 fL (80.0-98.0) 07/02/21 05:55 MCH 29.3 pg (27.0-33.0) 07/02/21 05:55 MCHC 32.4 g/dl (31.0-36.0) 07/02/21 05:55 RDW 14.4 % (11.0-16.0) 07/02/21 05:55 Plt Count 270 X10*3/uL (160-400) 07/02/21 05:55 MPV 10.1 fL (9.4-12.4) 07/02/21 05:55 Immature Gran % (Auto) 0.8 % (0.0-0.4) H 06/30/21 06:33 Neut % (Auto) 75.1 % (45-73) H 06/30/21 06:33 Lymph % (Auto) 14.7 % (20-40) L 06/30/21 06:33 [place] % (Auto) 9.1 % (2-11) 06/30/21 06:33 Eos % (Auto) 0.3 % (0-4) 06/30/21 06:33 Baso % (Auto) 0.0 % (0-2) 06/30/21 06:33 Lymph # (Auto) 0.9 X10*3/uL (1.2-4.9) L 06/30/21 06:33 [place] # (Auto) 0.6 X10*3/uL (0.1-1.2) 06/30/21 06:33 Eos # (Auto) 0.0 X10*3/uL (0.0-0.4) 06/30/21 06:33 Baso # (Auto) 0.0 X10*3/uL (0.0-0.2) 06/30/21 06:33 Abs Immat Gran (auto) 0.05 X10*3/uL (0.00-0.03) H 06/30/21 06:33 Absolute Neuts (auto) 4.7 x10*3/uL (2.0-8.3) 06/30/21 06:33 Absolute Nucleated RBC 0.000 X10*3/uL (0.0-0.012) 07/02/21 05:55 Nucleated RBC % (auto) 0.0 /100WBC (0.0-0.2) 07/02/21 05:55 Smear Tech's Comments VERIFIED 06/26/21 15:42 PT 23.5 SEC (9.9-13.0) H 06/27/21 20:21 INR 2.0 (0.9-1.1) H 06/27/21 20:21 APTT 30.9 SEC (24.1-38.0) 06/26/21 15:42 D-Dimer High Sensitivty 443 NG/ML 06/26/21 15:42 Sodium 144 mmol/L (135-145) 07/02/21 05:54 Potassium 4.2 mmol/L (3.3-5.1) 07/02/21 05:54 Chloride 113 mmol/L (96-108) H 07/02/21 05:54 Carbon Dioxide 26 mmol/L (22-29) 07/02/21 05:54 Anion Gap 9 (12-20) L 07/02/21 05:54 BUN 23 mg/dL (9-16) H 07/02/21 05:54 Creatinine 0.84 mg/dL (0.5-1.4) 07/02/21 05:54 Estim Creat Clear Calc 115.4 07/02/21 05:54 Estimated GFR > 60 07/02/21 05:54 Random Glucose 90 mg/dL (60-115) 07/02/21 05:54 Fasting Glucose 106 mg/dL (60-99) H 06/30/21 06:33 Lactic Acid 1.7 mmol/L (0.5-2.0) 06/26/21 15:42 Calcium 8.7 mg/dL (8.4-10.2) 07/02/21 05:54 Magnesium 2.2 mg/dL (1.6-2.6) 07/02/21 05:54 Ferritin 563 ng/mL (20-250) H 06/26/21 15:42 Total Bilirubin 1.2 mg/dL (0.0-1.0) H 07/02/21 05:54 Direct Bilirubin 0.6 mg/dL (0.0-0.5) H 06/26/21 15:42 AST 51 U/L (5-37) H 07/02/21 05:54 ALT 128 U/L (0-40) H 07/02/21 05:54 Alkaline Phosphatase 65 U/L (39-117) 07/02/21 05:54 Lactate Dehydrogenase 352 U/L (118-273) H 06/26/21 15:42 Troponin I High Sens 32.6 ng/L (<3.5-35.0) D 06/26/21 19:04 C-Reactive Protein 0.17 mg/dL (< or = 0.50) 07/01/21 08:01 B-Natriuretic Peptide 16 pg/mL (<100) 06/26/21 15:42 Total Protein 5.7 g/dL (6.5-8.0) L 07/02/21 05:54 Albumin 3.2 g/dL (3.5-5.0) L 07/02/21 05:54 Procalcitonin 0.05 ng/mL 06/26/21 20:35 TSH 3.97 uIU/mL (0.32-4.0) 06/26/21 15:42 COVID-19 (EMMANUELLE) Positive (Negative) A 06/26/21 15:56 COVID-19 Clin Com See Note 06/26/21 15:56 Impressions Chest X-Ray 06/26/21 16:16 IMPRESSION: Multifocal airspace opacities concerning for Covid pneumonia in the appropriate clinical context. Chest CTA 06/26/21 18:02 IMPRESSION: Questionable nonocclusive right apical pulmonary emboli. No central pulmonary emboli nor evidence of increased right-sided heart pressures. Multifocal airspace opacities with trace amount of bilateral pleural fluid concerning for a diffuse infectious or inflammatory processes such as Covid pneumonia. Calcified pleural plaques. Correlate with prior treatment for history of asbestosis. Asymmetrically enlarged and heterogeneous left lobe of the thyroid. If not already obtained, consider correlation with a nonemergent thyroid ultrasound. VTE: positive This critical result was discussed with Dr Meléndez at 06/26/2021 6:48 PM and it was ascertained that the content and urgency of the report was understood at the time of direct communication. Preliminary micro results at discharge 06/26/21 20:32 Blood Culture - Preliminary Blood - Venous Gram positive latosha 06/26/21 20:32 Blood Culture - Preliminary Blood - Venous Gram positive latosha Discharge Plan Discharge Patient Disposition: Home Health Service Discharge Diagnosis: Covid-19 pneumonia, pulmonary embolism, atrial fibrillation, hypoxia, possible bacteremia Referrals: [facility] [Provider Group] - 1 Week (new=onset AF in context of Covid-19 infection) Eric,Bhakti Vaughan MD [Primary Care Provider] - 1 Week Discharge Medications: New Xarelto 15 mg Tablet 15 mg PO BIDWM Qty: 30 RF: 0 rivaroxaban 20 mg tablet 20 mg PO DAILY Qty: 30 RF: 0 dexamethasone 6 mg tablet 6 mg PO DAILY Qty: 4 RF: 0 Continued atorvastatin 10 mg tablet 10 mg PO DAILY 90 Days Qty: 90 RF: 1 potassium citrate [Urocit-K 10] 10 mEq (1,080 mg) tablet extended release 20 meq PO TID RF: 0 amlodipine 2.5 mg tablet 2.5 mg PO DAILY RF: 0 niacin 500 mg tablet 500 mg PO DAILY RF: 0 omega-3 fatty acids [Fish Oil Concentrate] 1,000 mg capsule 1,000 mg PO DAILY RF: 0 PreserVision AREDS [id number] capsule 1 cap PO ONCE RF: 0 allopurinol 100 mg tablet 100 mg PO DAILY 90 Days Qty: 90 RF: 1 Discharge Orders: Discharge Order (Routine); Ordered 07/02/21 Ordered By: Susu Duncan Diet: advance to usual diet and low salt diet Activity on Discharge: As tolerated Stand Alone Forms: Patient Portal Discharge page Other Ambulatory Orders: [place] echo transthoracic complete (Routine) Timeframe: 2 Weeks Facility: [facility] - Location: Cardiology Ordered By: Susu Duncan Care Plan Goals: recovery from Covid-19 infection treatment of clot in lungs prevention of strokes from atrial fibrillation Health Concerns: Covid-19 pneumonia, pulmonary embolism, atrial fibrillation, hypoxia, possible bacteremia Plan of Treatment: Covid-19: take dexamethasone 6 mg daily for 4 more days. check your oxygen saturation several times a day and return to hospital if it is 90% or less or you have severe shortness of breath. isolation as per CDC guidance. pulmonary embolism and prevention of strokes from atrial fibrillation: take rivaroxaban [Xarelto] 15 mg twice daily for 15 more days, then change to 20 mg once daily atrial fibrillation: outpatient echocardiogram and Cardiology consultation hypoxia: resolved possible bacteremia: likely contaminant. follow up with primary care doctor for results of final blood cultures Assessment: see Discharge Summary
--- NOTE | 2021-07-02 12:52 | MHC.CM.PN ---
Patient has been medically cleared for dc to home today with new [facility]. [facility] has accepted Patient with a start date of this 07/06/21 (MD is aware of start date and approving of it).
== END 2021-07-02 14:44 | disposition home health service (06) | DRG 137 ==
LOC: HO.ED 17:09 → HO.EDOVER 20:47 → HO.IMC 06-27 17:23
PROVIDERS: Emergency Medicine; Hospitalist; Admitting Provider Hospitalist; Emergency Provider Emergency Medicine Emergency Medical Services; PCP Internal Medicine; Visit Provider Family Medicine
DX: U07.1 COVID-19 (principal); I26.93 Single subsegmental thrombotic pulmonary embolism without acute cor pulmonale; J12.82 Pneumonia due to coronavirus disease 2019; J96.01 Acute respiratory failure with hypoxia; I10 Essential (primary) hypertension; I44.7 Left bundle-branch block, unspecified; I48.0 Paroxysmal atrial fibrillation; Z79.01 Long term (current) use of 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; Z79.899 Other long term (current) drug therapy
CPT/HCPCS: 36415; 71045; 71275; 80048; 80053; 80076; 82728; 83605; 83615; 83735; 83880; 84145; 84443; 84484; 85025; 85027; 85379; 85610; 85730; 86140; 87040; 87077; 87205; 87635; 93005; 94660; 96361; 96365; 96367; 96372; 96375; 96376; 97162; 99285; 99291; J0456; J0696; J1100; J1160; J1650; J2270; J3010; J3490; Q9967

== ENCOUNTER → 2021-07-13 07:18 | Outpatient (REF) | payer BC, SELFPAY ==
--- NOTE | ~2021-07-13 | NM_ITS ---
Lexiscan Myocardial perfusion study Indication: Chest pain, atrial fibrillation, assess for coronary disease and ischemia Technique: The patient was brought in for a Lexiscan perfusion study on 07/13/2021 and was injected 0.4 mg of Lexiscan intravenously. Within a minute of this injection 40 mCi of sestamibi was given intravenously. Images were obtained using the SPECT gamma camera interlaced with the gating device. Images were obtained in supine position. Resting perfusion study was performed on 07/18/2021. Patient was administered 40 mCi of sestamibi intravenously at rest. Images were then obtained in supine position. Total DLP 113mGy-cm. Images were processed with the software and compared side to side in short axis, horizontal long axis and vertical long axis views. Findings: Raw acquisition was reviewed. The stress perfusion study showed mildly diminished tracer uptake in the basal lateral wall. No significant change with CT attenuation correction. The gated study shows normal LV systolic function with calculated LVEF of 67%. LV cavity is normal in size. The gated study shows normal wall thickening and contraction of segments. Resting study shows diminished tracer uptake in the basal lateral wall. Gating at rest reveals normal wall motion with ejection fraction at 65%. The findings are consistent with no reversible defects. Fixed lateral defect. VA/VA cardiolite stress test Impression: 1. Myocardial perfusion imaging study shows no clear evidence of any ischemia. Fixed defect in the basal lateral wall that could be artifactual. Less likely to represent infarct. 2. Gated LVEF 66% during stress and 65% during rest. 3. Transient ischemic dilatation not present. EKG component of the test reported separately.
--- NOTE | 2021-07-13 07:22 | HM_ITS ---
Total monitoring time 4 days and 10 hours. Underlying rhythm is sinus. Minimum rate 57/Min. Maximum 143/Min. Average 85/Min. No atrial fibrillation or flutter or AV blocks or pauses. Very rare supraventricular ectopy with minimal burden. Frequent ventricular ectopy with the burden of 5.2%. 3 morphologies, 1337 couplets; 47 runs, longest run, 3-5 beats. No patient events. MTDD
--- NOTE | 2021-07-13 07:22 | CA_ITS ---
Acquisition Time: 2021-07-13 08:30:49 Total Exercise Time: 00:02:00 Test Indications: CP, AFIB, LBBB Medications: SEE CHART Protocol: LEXISCAN Max HR: 096 BPM 62% of Pred: 154 BPM Max BP: 122/074 mmHG Max Work Load: 1.0 METS Pharmacological stress test with Lexiscan injection, while sitting and kicking his legs, without anginal symptoms, with isolated PVCs, with normotensive response to injection, without EKG changes meeting criteria for ischemia. In recovery he reported lightheadedness that was treated with Aminphylline 75mg IVP with resolution of symptom. Nuclear images pending. Test reviewed with Dr Rivera. Referred By: Ashkan Rivera Overread By: KIRSTEN CAMPOVERDE
--- NOTE | 2021-07-13 07:22 | CA_ITS ---
Transthoracic Echocardiogram Patient (Last, First, Middle): Mario Nice E Gender: Male Date of : 1955 Age: 66 Procedure Date: 07/13/2021 Procedure Type: Transthoracic Echocardiogram Location: OP Height: 187.96 cm Weight: 113.4 kg BSA: 2.39 m2 Heart Rate: bpm BP: 115 / 72 mmHg Administration Physician: JARRETT Referring MD: Ashkan Rivera MD Symptoms: I44.7 - Left bundle-branch block, unspecified Study Quality: Fair Conclusions: - Normal left ventricular size and systolic function. - The basal inferior segment is akinetic. - Normal right ventricular cavity size and systolic function. Findings Left Ventricle Normal left ventricular size and systolic function. There is mildly increased left ventricular wall thickness. The visually estimated ejection fraction is between 55-60%. There is evidence of regional wall motion abnormalities. Diastolic function is indeterminate on the basis of available data. Wall Motion Rest Echo Findings The basal inferior segment is akinetic. Right Ventricle Normal right ventricular cavity size and systolic function. Atria Both atria are normal in size. Aortic Valve There is a normal trileaflet aortic valve. There is no aortic valve stenosis. There is no aortic valve regurgitation. Mitral Valve Normal mitral valve structure and function. There is no mitral valve regurgitation. There is no mitral valve stenosis. Pulmonic Valve Normal pulmonic valve structure and function. There is trace pulmonic valve regurgitation. Tricuspid Valve Normal tricuspid valve structure and function. There is trace tricuspid valve regurgitation. Normal right atrial pressure. There is no evidence of pulmonary hypertension. Great Vessels All visible segments of the aorta are normal in size. The visualized portions of the pulmonary artery and branches are normal. Venous The inferior vena cava is normal in size and collapses greater than 50% with inspiration. Pericardium/Pleural There is no evidence of pericardial effusion. Prior Study Comparison No prior study available for comparison. Measurements 2D Linear Measurements IVSd: 1.26 0.6-0.9/0.6-1.0 cm LVIDd: 4.25 3.9-5.3/4.2-5.9 cm LVIDd Index: 1.78 2.4-3.2/2.2-3.1 cm/m2 LVIDs: 2.88 2.0-3.6 cm LVPWd: 1.25 0.7-1.1 cm Ao Root: 3.40 2.1-3.5 cm LA Diam: 3.60 2.7-3.8/3.0-4.0 cm LAIDs Index: 1.51 1.5-2.3 cm/m2 LV Mass: 241.44 67-162/88-224 g LV Mass Index: 101.02 43-95/49-115 g/m2 LVOT Diam: 2.10 3.0+(-)1.3 cm 2D Systolic Function EF 4C: 52.30 >55% EF 2C: 56.10 >55% EF BiP: 56.90 >55% Mitral Valve MV Pk E: 0.61 MV PK A: 0.66 MV Decel Time: 254.00 E/A: 0.90 E'Lateral: 7.72 E'Medial: 5.44 E/E' Med: 11.30 E/E' Lat: 7.90 PHT: 74.00 MVA PHT: 2.97 Decel [place]: 2.41 Aortic Valve AoV Pk Alfredo: 1.47 AoV Mn Alfredo: 1.00 AoV VTI: 0.32 AoV Pk Grad: 9.00 Aov Mn Grad: 5.00 ESTELA Cont.VTI: 2.46 LVOT LVOT Pk Alfredo: 1.04 LVOT Mn Alfredo: 0.70 LVOT VTI: 0.23 LVOT Pk Grad: 4.00 LVOT Mn Grad: 2.00 LVOT Diam: 2.10 LVOT Area: 3.46 Diastolic Function MV Pk E: 0.61 MV Pk A: 0.66 E/A: 0.90 E'Medial: 5.44 E/E' Med: 11.30 E' Laterial: 7.72 E/E' Lat: 7.90 Right Ventricle TAPSE (mm): 25.40 TVS' Alfredo: 16.30 Tricuspid Valve TR Pk Alfredo: 2.84 TR Pk Grad: 32.00 RA Press: 3.00 RVSP: 35.00 Great Vessels Aorta Ao Root-2D: 3.40 2.0-3.7 cm Ao Asc: 3.30 2.1-3.4 cm Ao Arch: 2.50 Updated in Other Vendor System with Status of Final Ashkan Rivera MD electronically signed on 07/15/2021 7:17:22 PM with status of Final
== END ==
LOC: HO.CARD 07:18
PROVIDERS: PCP Internal Medicine; Visit Provider Internal Medicine Cardiovascular Disease
DX: I44.7 Left bundle-branch block, unspecified (principal); I48.0 Paroxysmal atrial fibrillation
CPT/HCPCS: 78452; 93017; 93242; 93306; A9500; J0280; J2785

== ENCOUNTER 2021-07-16 13:32 | Outpatient (REF) | payer BC, SELFPAY ==
--- NOTE | ~2021-07-16 | XR_ITS ---
EXAMINATION: XR CHEST CLINICAL INFORMATION: COVID-19. Follow-up. COMPARISON: Chest 06/26/2021. TECHNIQUE: 2 views of the chest were obtained. FINDINGS: There is interval improvement in multifocal airspace opacities with minimal residual changes in the left mid chest. Heart size and pulmonary vascularity is normal. There is recently inserted hardware overlying the left anterior chest. XR/XR chest 2V IMPRESSION: Interval improvement in the multifocal airspace opacities since the previous study. There is new hardware overlying the left anterior chest wall.
== END 2021-07-16 13:33 | disposition home or self-care (01) ==
LOC: HO.XRAY 13:32
PROVIDERS: PCP Internal Medicine; Visit Provider Internal Medicine
DX: U07.1 COVID-19 (principal)
CPT/HCPCS: 71046

== ENCOUNTER 2021-07-31 12:51 | Outpatient (REF) | payer BC, SELFPAY ==
--- NOTE | ~2021-07-31 | US_ITS ---
EXAMINATION: US THYROID CLINICAL INFORMATION: Nontoxic goiter, unspecified COMPARISON: CT neck 09/03/2012. TECHNIQUE: Linear transducer grayscale and color Doppler examination with attention to the region of the thyroid. FINDINGS: SIZE: Measurements of the solitary left thyroid lobe and nodules are given in sagittal, anteroposterior and transverse dimensions respectively. Right Thyroid Lobe: Surgically absent. Left Thyroid Lobe: 5.5 x 1.9 x 2.6 cm, volume 14.2 mL. Parenchyma: The gland echotexture is heterogeneous. Thyroid vascularity is normal. Isthmus: Surgically absent. Estimated total number of nodules greater than or equal to 1 cm: 1. 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 Location: Left superior. Size: 0.6 x 0.5 x 0.6 cm, volume 0.08 mL. Nodule characteristics: Composition: Spongiform (0). Echogenicity: Anechoic (0). Shape: Not taller than wide (0). Margins: Smooth (0). Echogenic Foci: None (0). ACR TI-RADS total points: 0 ACR TI-RADS category: 1 2. Location: Left mid medial. Size: 1.5 x 1.4 x 1.3 cm, volume 1.34 mL. Nodule characteristics: Composition: Solid (2). Echogenicity: Very hypoechoic (3). Shape: Taller than wide (3). Margins: Smooth (0). Echogenic Foci: Punctate echogenic foci (3). ACR TI-RADS total points: 11 ACR TI-RADS category: 5 3. Location: Left inferior lateral. Size: 0.5 x 0.6 x 0.6 cm, volume 0.09 mL. Nodule characteristics: Composition: Solid (2). Echogenicity: Hyperechoic (1). Shape: Not taller than wide (0). Margins: Ill-defined (0). Echogenic Foci: Punctate echogenic foci (3). ACR TI-RADS total points: 6 ACR TI-RADS category: 4 NODES: There is a left level 3 lymph node present measuring approximately 1.2 x 0.4 x 0.6 cm in size which has smooth margins and normal fatty hilum without evidence of cortical thickening or lobulation. US/US thyroid IMPRESSION: Left mid thyroid 1.5 cm maximum dimension nodule with TI-RADS Category 5 for which fine-needle aspiration biopsy is recommended. ACR TI-RADS RECOMMENDATION REFERENCE: Ultrasound-guided fine-needle aspiration, followup ultrasound, no further follow up. * TR1 (0 point) and TR 2 (2 points): No FNA or follow up * TR3 (3 points): FNA if more than or equal to 2.5 cm in maximum dimension, followup ultrasound in 1, 3 and 5 years if 1.5 to 2.4 cm in maximum dimension. * TR4 (4-6 points): FNA if more than or equal to 1.5 cm in maximum dimension, followup ultrasound in 1, 2, 3 and 5 years if 1 to 1.4 cm in maximum dimension. * TR5 (more than or equal to 7 points): FNA if more than or equal to 1 cm in maximum dimension, followup ultrasound every year for 5 years if 0.5 to 0.9 cm in maximum dimension. * TR3, TR4 or TR5 nodules that are below the size threshold for follow up receive no follow up.
== END 2021-07-31 12:52 | disposition home or self-care (01) ==
LOC: HO.HMGCX 12:51
PROVIDERS: PCP Internal Medicine; Visit Provider Internal Medicine
DX: E04.9 Nontoxic goiter, unspecified (principal)
CPT/HCPCS: 76536

== ENCOUNTER → 2021-08-16 13:30 | Outpatient (BNVA) | payer BC, SELFPAY | PROVIDERS: PCP Internal Medicine; Referring Provider Internal Medicine; Visit Provider Nurse Practitioner Family ==

== ENCOUNTER 2021-08-27 13:28 | Outpatient (REF) | payer BC, SELFPAY ==
[2021-08-27 16:03] LABS: Free T4 (Free Thyroxine) 0.91 ng/dL (0.71-1.85); Thyroid Stimulating Hormone 1.67 uIU/mL (0.32-4.0); Vitamin D 25-OH Total 26.8 ng/mL (>30)
[2021-08-28 17:46] LABS: Calcium (PTHI) 9.2 mg/dL (8.6-10.3); PTHI 35 pg/mL (14-64)
== END 2021-08-27 13:29 | disposition home or self-care (01) ==
LOC: HO.LAB 13:28
PROVIDERS: PCP Internal Medicine; Visit Provider Internal Medicine
DX: E04.2 Nontoxic multinodular goiter (principal); E55.9 Vitamin D deficiency, unspecified
CPT/HCPCS: 36415; 82306; 83970; 84100; 84439; 84443

== ENCOUNTER 2021-09-27 | Outpatient (REF) | payer BC, SELFPAY | END 2021-09-27 00:01 | disposition home or self-care (01) | LOC: HO.HMGCLDS | PROVIDERS: PCP Internal Medicine; Visit Provider Internal Medicine | DX: I48.0 Paroxysmal atrial fibrillation (principal); I10 Essential (primary) hypertension; R53.83 Other fatigue | CPT/HCPCS: 93005 ==

== ENCOUNTER 2021-10-09 10:39 | Outpatient (REF) | payer BC, SELFPAY ==
[2021-10-09 13:10] LABS: Ferritin 80 ng/mL (20-250)
[2021-10-09 13:20] LABS: Vitamin B12 311 pg/mL (200-900)
== END 2021-10-09 10:40 | disposition home or self-care (01) ==
LOC: HO.LAB 10:39
PROVIDERS: PCP Internal Medicine; Visit Provider Nurse Practitioner Family
DX: R40.0 Somnolence (principal); D64.9 Anemia, unspecified; R06.83 Snoring; R53.83 Other fatigue; G47.33 Obstructive sleep apnea (adult) (pediatric); E66.09 Other obesity due to excess calories; Z68.30 Body mass index [BMI] 30.0-30.9, adult
CPT/HCPCS: 36415; 82607; 82728

== ENCOUNTER → 2021-11-15 10:26 | Outpatient (REF) | payer BC, SELFPAY | LOC: HO.SL 10:26 | PROVIDERS: PCP Internal Medicine; Visit Provider Nurse Practitioner Family | DX: G47.33 Obstructive sleep apnea (adult) (pediatric) (principal); R06.83 Snoring; R40.0 Somnolence; E66.09 Other obesity due to excess calories; Z68.30 Body mass index [BMI] 30.0-30.9, adult | CPT/HCPCS: 95806 ==

== ENCOUNTER 2021-11-23 10:51 | Outpatient (REF) | payer BC, SELFPAY ==
--- NOTE | ~2021-11-23 | US_ITS ---
EXAMINATION: US RETROPERITONEAL LIMITED (RENAL ONLY) CLINICAL INFORMATION: Calculus of kidney. COMPARISON: Renal ultrasound 05/07/2021 and 03/12/2018. CT abdomen and pelvis 01/07/2021. MRI abdomen 03/13/2018. X-ray KUB 02/25/2018 and 02/04/2018. TECHNIQUE: Real-time imaging of the kidneys. FINDINGS: RIGHT KIDNEY: 11.9 x 4.7 x 4.1 cm (SAG x AP x TRV). The kidney is normal in size, contour, and echogenicity. Renal cortical thickness is normal. There is a 1 cm minimally complex cyst in the midpole with small focus of wall calcification or milk of calcium cyst. Small stones seen by CT are not well appreciated by ultrasound. No hydronephrosis. LEFT KIDNEY: 10.3 x 5.0 x 3.9 cm (SAG x AP x TRV). The kidney is normal in size, contour, and echogenicity. Renal cortical thickness is normal. There is a 7 x 4 x 6 mm cyst in the lower pole. There is a 5 x 2 x 5 mm stone in the midpole. No hydronephrosis. US/US renal BI IMPRESSION: Small bilateral renal cysts. Small stones seen by CT are not well appreciated by ultrasound. There is a 5 x 2 x 5 mm stone in the midpole of the left kidney.
== END 2021-11-23 10:52 | disposition home or self-care (01) ==
LOC: HO.US 10:51
PROVIDERS: Visit Provider Urology
DX: N20.0 Calculus of kidney (principal)
CPT/HCPCS: 76775

== ENCOUNTER 2021-12-19 13:02 | Outpatient (REF) | payer BC, SELFPAY ==
[2021-12-19 13:20] LABS: MANUAL DIFF FLAG NO
[2021-12-19 13:41] LABS: Basophils Percent Auto 0.8 % (0-2); Eosinophils Absolute Auto 0.2 X10*3/uL (0.0-0.4); Hematocrit 42.7 % (42.0-52.0); Hemoglobin 13.8 g/dl (14.0-18.0); Imm Gran Abs Auto 0.01 X10*3/uL (0.00-0.03); Imm Gran Pct Auto 0.2 % (0.0-0.4); Lymphocytes Absolute Auto 0.9 X10*3/uL (1.2-4.9); Lymphocytes Percent Auto 19.3 % (20-40); Mean Corpuscular HGB Conc 32.3 g/dl (31.0-36.0); Mean Corpuscular Hemoglobin 29.3 pg (27.0-33.0); Mean Corpuscular Volume 90.7 fL (80.0-98.0); Mean Platelet Volume 9.5 fL (9.4-12.4); Monocytes Absolute Auto 0.5 X10*3/uL (0.1-1.2); Monocytes Percent Auto 11.2 % (2-11); Neutrophils Absolute Auto 3.1 x10*3/uL (2.0-8.3); Neutrophils Percent Auto 64.5 % (45-73); Platelet Count 190 X10*3/uL (160-400); Red Blood Count 4.71 X10*6/uL (4.60-5.80); Red Cell Distribution Width 13.7 % (11.0-16.0); White Blood Count 4.8 X10*3/uL (4.8-10.8)
[2021-12-19 13:50] LABS: Estimated Average Glucose 108 mg/dL; Hemoglobin A1c % 5.4 %
[2021-12-19 13:56] LABS: Alanine Aminotransferase 24 U/L (0-40); Albumin Level 3.9 g/dL (3.5-5.0); Alkaline Phosphatase 84 U/L (39-117); Anion Gap 12 (12-20); Aspartate Amino Transferase 17 U/L (5-37); Bilirubin Total 1.2 mg/dL (0.0-1.0); Blood Urea Nitrogen 15 mg/dL (9-16); Calcium 9.1 mg/dL (8.4-10.2); Carbon Dioxide 27 mmol/L (22-29); Chloride 108 mmol/L (96-108); Cholesterol 154 mg/dL; Estimated Glomerular Filt Rate > 60; Glucose Random 79 mg/dL (60-115); HDL Cholesterol 44 mg/dL; LDL Cholesterol Calculated 92 mg/dl; Potassium 4.7 mmol/L (3.3-5.1); Sodium 142 mmol/L (135-145); Total Protein 6.1 g/dL (6.5-8.0); Triglycerides 93 mg/dL
[2021-12-19 14:16] LABS: Free T4 (Free Thyroxine) 1.05 ng/dL (0.71-1.85); Prostate Specific Antigen Scr 2.45 ng/mL (<0.05-4.0); Thyroid Stimulating Hormone 2.11 uIU/mL (0.32-4.0)
[2021-12-19 14:53] LABS: Folate 16.9 ng/mL (> or = 4.0); Vitamin B12 305 pg/mL (200-900)
== END 2021-12-19 13:03 | disposition home or self-care (01) ==
LOC: HO.LAB 13:02
PROVIDERS: PCP Internal Medicine; Visit Provider Internal Medicine
DX: Z12.5 Encounter for screening for malignant neoplasm of prostate (principal); E78.00 Pure hypercholesterolemia, unspecified; R73.02 Impaired glucose tolerance (oral)
CPT/HCPCS: 36415; 80053; 80061; 82607; 82746; 83036; 84153; 84439; 84443; 85025

== ENCOUNTER 2022-01-25 10:08 | Day surgery (SDC) | payer BC, SELFPAY ==
[2022-01-18 18:00] VITALS: BMI 31.4
--- NOTE | 2022-01-24 09:39 | HO.ANESPROP2 ---
Documented by User: Elida Quevedo NP 01/24/22 09:49 HPI - Anesthesia Eval Consult details Narrative: 66yo M for Colonoscopy Xarelto for afib Stable at 12/2021 PCP visit Stable at 09/2021 cardiac visit. All recent testing WNL PMFSH Active Problems Active Problems: All Active Problems (Updated 01/18/22 @ 17:59 by Jennifer Alexandra RN) Impaired glucose tolerance (Acute) Trochanteric bursitis of left hip (Acute) Liver disease (Acute) Anemia (Acute) COVID-19 (Acute) Pulmonary embolism (Acute) Paroxysmal atrial fibrillation (Acute) Thyroid nodule (Acute) PVCs (premature ventricular contractions) (Acute) Fatigue (Acute) Daytime sleepiness (Acute) Snoring (Acute) Anemia (Acute) Nephrolithiasis (Acute) GLENN on CPAP (Acute) Restless legs syndrome (Acute) Tubular adenoma of colon (Acute) Vitamin D deficiency (Acute) Multinodular thyroid (Acute) Left bundle branch block (Acute) Hypertension (Acute) Obstructive sleep apnea (Acute) History of kidney stones (Acute) Hypercholesterolemia (Acute) Obesity (Acute) GERD (gastroesophageal reflux disease) (Acute) Past Medical History Medical History Acute respiratory failure with hypoxia Arthritis Atrial fibrillation with rapid ventricular response Bacteremia GERD (gastroesophageal reflux disease) Hip pain History of kidney stones Hypercholesterolemia Hypertension Left bundle branch block Multinodular thyroid Obesity Obstructive sleep apnea Polycystic liver disease Scoliosis Thyroid enlargement Tubular adenoma of colon Vitamin D deficiency Family History Family History Father Medical history unknown Mother Medical history unknown Family history of problems with anesthesia: No Surgical History Surgical History History of appendectomy History of colonoscopy History of lithotripsy History of removal of cyst History of thyroidectomy History of Problems with Anesthesia: No Social History Social History Household Members: Spouse Housing: House Do you presently have visiting nurse or other home services: No Alcohol intake: current Alcohol intake frequency: does not drink Patient Tobacco Use Status: Never used Tobacco e-Cigarette/Vaping Use: Never Used Second Hand Smoke Exposure: No Use of substances other than those prescribed or required for medical reasons: No Are you DNR?: No Advance Directives: No Advance Directives Information Provided: Yes Advance Directives on File: No Recently lost weight without trying: No Nutrition Risks: No Nutritional Risk Current occupational status: employed Cognitive needs: No Hearing needs: No Vision needs: No Meds Allergies Allergy/AdvReac Type Severity Reaction Status Date / Time No Known Allergies Allergy Verified 01/25/22 10:19 [No Known Allergies*] Home Medications Medication Instructions Recorded Confirmed Last Taken Type amlodipine 2.5 mg tablet 2.5 mg PO DAILY 05/08/20 01/18/22 Unknown History niacin 500 mg tablet 500 mg PO DAILY 05/08/20 01/18/22 Unknown History omega-3 fatty acids 1,000 mg 1,000 mg PO DAILY 05/08/20 01/18/22 Unknown History capsule (Fish Oil Concentrate) vitamins A,C,P-aklv-fafkqq 14,320 1 cap PO ONCE 05/08/20 01/18/22 Unknown History unit-226 mg-200 unit capsule (PreserVision AREDS) Exam Exam Date and Time: January 24, 2022 0939 Height,Weight and Vital Signs: Height 6 ft 2 in Weight 111.13 kg Pertinent Lab Results Pertinent Lab Results: Laboratory Tests 12/19/21 12/19/21 13:17 13:17 WBC 4.8 Hgb 13.8 L Hct 42.7 Plt Count 190 D Sodium 142 Potassium 4.7 Chloride 108 Carbon Dioxide 27 BUN 15 Creatinine 0.95 Narrative Narrative: EKG 09/2021 NSR, left axis deviation. LVH with repolarization, QTc 449 msec. ECHO 06/2021 Conclusions: - Normal left ventricular size and systolic function.? - The basal inferior segment is akinetic.? - Normal right ventricular cavity size and systolic function.? ? NM cardiolite stress test 06/2021 Impression: ? 1.? Myocardial perfusion imaging study shows no clear evidence of any ischemia. Fixed defect in the basal lateral wall that could be artifactual. Less likely to represent infarct. 2. Gated LVEF 66% during stress and 65% during rest. 3. Transient ischemic dilatation not present. ? EKG component of the test reported separately. Assessment and Plan Assessment Anesthesia Assessment: Chart Reviewed Final Anesthetic Review Family History of Problems with Anesthesia: No History of Problems with Anesthesia: No Documented by User: Arash Damon MD 01/25/22 11:02 PMFSH Past Medical History Medical History Acute respiratory failure with hypoxia Arthritis Atrial fibrillation with rapid ventricular response Bacteremia GERD (gastroesophageal reflux disease) Hip pain History of kidney stones Hypercholesterolemia Hypertension Left bundle branch block Multinodular thyroid Obesity Obstructive sleep apnea Polycystic liver disease Scoliosis Thyroid enlargement Tubular adenoma of colon Vitamin D deficiency Family History Family History Father Medical history unknown Mother Medical history unknown Surgical History Surgical History History of appendectomy History of colonoscopy History of lithotripsy History of removal of cyst History of thyroidectomy Social History Social History Household Members: Spouse Housing: House Do you presently have visiting nurse or other home services: No Alcohol intake: current Alcohol intake frequency: does not drink Patient Tobacco Use Status: Never used Tobacco e-Cigarette/Vaping Use: Never Used Second Hand Smoke Exposure: No Use of substances other than those prescribed or required for medical reasons: No Are you DNR?: No Advance Directives: No Advance Directives Information Provided: Yes Advance Directives on File: No Recently lost weight without trying: No Nutrition Risks: No Nutritional Risk Current occupational status: employed Cognitive needs: No Hearing needs: No Vision needs: No Meds Allergies Allergy/AdvReac Type Severity Reaction Status Date / Time No Known Allergies Allergy Verified 01/25/22 10:19 [No Known Allergies*] Home Medications Medication Instructions Recorded Confirmed Last Taken Type amlodipine 2.5 mg tablet 2.5 mg PO DAILY 05/08/20 01/18/22 Unknown History niacin 500 mg tablet 500 mg PO DAILY 05/08/20 01/18/22 Unknown History omega-3 fatty acids 1,000 mg 1,000 mg PO DAILY 05/08/20 01/18/22 Unknown History capsule (Fish Oil Concentrate) vitamins A,C,A-bick-nfelpa 14,320 1 cap PO ONCE 05/08/20 01/18/22 Unknown History unit-226 mg-200 unit capsule (PreserVision AREDS) Exam Airway Mallampati Class: III TM Dist: >3cm Neck ROM: Full Assessment and Plan Assessment Anesthesia Assessment: Anesthesia Plan Discussed Final Anesthetic Review NPO: Yes ASA Class: III Final Preanesthetic Review: No Changes in Pt Med Stat, Meds/Allgs Chart Reviewed, Consent Obtained/Reviewed and Anes Risks/Benef Reviewed Patient Risk: Intermediate Procedure Risk: Low Anesthetic Plan Anesthetic Plan: MAC: Disposition: Standard PACU
[2022-01-25] MEDS: Lactated Ringers 1,000 ML 50 ML IVCONT (10:39)
--- NOTE | 2022-01-25 11:25 | MHC.SHP ---
Pre-Procedural Eval Section A Date of Service: 01/25/22 Section B Chief Complaint: screening Details of Present Illness: see H&P no changes Relevant Family History (Specify if Yes): No Relevant Social History: None Present Medications: see Short Stay Collaborative assessment Medical History: No relevant PMH History of Previous Operations: No relevant previous surgery Allergies: Allergies Allergy/AdvReac Type Severity Reaction Status Date / Time No Known Allergies Allergy Verified 01/25/22 10:19 [No Known Allergies*] Review of Systems Sugical H&P ROS: Negative: Constitution, Cardiovascular, Respiratory, Neurological, Psychiatric, Hem-Onc, Allergic/Immunologic, Gastrointestinal, Genitourinary, Musculoskeletal, Integumentary, Endocrine and Eyes/Ears/Nose/Throat Exam Surgical H&P Exam: Normal: HEENT, Normal: Heart, Normal: Lungs, Normal: Extremities, Normal: Abdomen, Normal: Skin and Normal: Neurological Plan Diagnosis/Plan: Unchanged I have reviewed the history and physical and performed a pertinent physical examination on my patient. No changes have occurred unless specified.
--- NOTE | 2022-01-25 12:02 | P.BOP_ITS ---
Brief Operative Note Date of Service: 01/25/22 Pre-op diagnosis: screening Post-op diagnosis: same (colon polyp) Procedure: colonosocpy Surgeon: Hector Rivera Anesthesia: MAC Was an Financial Services Education Consultant used for this Procedure?: No Estimated blood loss (mL): 3 Pathology: other Condition: stable Disposition: PACU
[2022-01-25 12:03] VITALS: BP 108/61; PULSE 70; RESP 17; TEMP 36.1; O2SAT 97
[2022-01-25 12:18] VITALS: BP 111/59; PULSE 71; RESP 18; TEMP 36.3; O2SAT 99
--- NOTE | 2022-01-26 00:06 | OP_ITS ---
SURGEON: Hector Rivera MD INDICATIONS: Colon cancer screening and prior history of adenomatous colon polyps. PREOPERATIVE DIAGNOSIS: POSTOPERATIVE DIAGNOSIS: PROCEDURE PERFORMED: ESTIMATED BLOOD LOSS: COMPLICATIONS: ANESTHESIA: Medications; monitored anesthesia care. ASSISTANTS: SPECIMENS: PROCEDURE: Colonoscopy to the terminal ileum with snare polypectomy and biopsy. DESCRIPTION OF PROCEDURE: History and physical performed. The risks and benefits of the procedure were explained to the patient. Informed consent was obtained. The patient was placed in the left lateral decubitus position. A digital rectal exam was performed and was found to be normal. The Olympus pediatric videocolonoscope was introduced into the rectum and advanced to the cecum without difficulty. The cecum was identified by transillumination, palpation, and identification of ileocecal valve. Examination was performed. The scope was removed. He tolerated the procedure well and was taken to recovery in stable condition. FINDINGS: The terminal ileum was normal. The visualized colonic mucosa was normal. The quality of prep was good. There was some stool coating mucosa in the right colon and cecum. This was washed and suctioned as best possible. A single polyp was identified and removed with a cold snare and biopsy forceps at 45 cm from the anal verge. The polyp measured approximately 5 mm. No other polyps were identified. There was mild sigmoid diverticulosis. Retroflexed examination showed some moderate-sized internal hemorrhoids. IMPRESSION: Colon polyp. RECOMMENDATION: Follow up with the biopsy results. MD RONI Astudillo/WENDIE / [phone]
== END 2022-01-25 12:30 | disposition home or self-care (01) ==
PROVIDERS: PCP Internal Medicine; Visit Provider Internal Medicine Gastroenterology
PROC: 0DJD8ZZ Inspection of Lower Intestinal Tract, Via Natural or Artificial Opening Endoscopic (ICD-10-PCS; CPT 45378; principal; 2022-01-25 11:30)
DX: Z12.11 Encounter for screening for malignant neoplasm of colon (principal); Z86.010 Personal history of colon polyps; D12.5 Benign neoplasm of sigmoid colon; K57.30 Diverticulosis of large intestine without perforation or abscess without bleeding; K64.8 Other hemorrhoids; I48.91 Unspecified atrial fibrillation; K76.89 Other specified diseases of liver; G47.33 Obstructive sleep apnea (adult) (pediatric); Z99.89 Dependence on other enabling machines and devices; Z79.01 Long term (current) use of 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; Z79.899 Other long term (current) drug therapy; Z86.711 Personal history of pulmonary embolism; Z86.16 Personal history of COVID-19; Z87.442 Personal history of urinary calculi
CPT/HCPCS: 45385; 45380; 88305

== ENCOUNTER → 2022-02-13 12:27 | Outpatient (BNVA) | payer BC, SELFPAY | PROVIDERS: PCP Internal Medicine; Referring Provider Internal Medicine; Visit Provider Internal Medicine Cardiovascular Disease | DX: I48.0 Paroxysmal atrial fibrillation (principal); I10 Essential (primary) hypertension; G47.33 Obstructive sleep apnea (adult) (pediatric); Z99.89 Dependence on other enabling machines and devices | CPT/HCPCS: 93005 ==

== ENCOUNTER 2022-02-14 08:30 | Outpatient (REF) | payer BC, SELFPAY ==
--- NOTE | 2022-02-14 09:04 | P.BOP_ITS ---
Brief Operative Note Date of Service: 02/14/22 Pre-op diagnosis: Thyroid Nodule Procedure: This is doctor May Sykes. This is an ultrasound-guided fine-needle aspiration report. Date of Examination: 02/14/2022 Indication: Multinodular Thyroid Porcedure: Procedure was explained to the patient. Alternatives, the risk and benefits were discussed. Written consent was obtained. A time-out was also obtained. After sterile preparation, fine-needle aspiration of a left mid pole 1.5 cm thyroid nodule was performed using direct ultrasound guidance to confirm accurate needle placement. Four aspirations were made using 27 gauge needles. Samples were submitted for cytology. 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 The patient tolerated the procedure well. Aftercare instructions were provided. Impression: Uncomplicated fine needle aspiration biopsy of a left mid pole 1.5 cm thyroid nodule under ultrasound guidance. Surgeon: May Sykes, DO Was an Deburring Machine Operator used for this Procedure?: No Estimated blood loss (mL): 0
[2022-02-14] MEDS: Lidocaine HCl 1 % 20 ML VIAL 4 ML SUBCUT (11:25)
== END 2022-02-14 08:31 | disposition home or self-care (01) ==
LOC: HO.US 08:30
PROVIDERS: Visit Provider Internal Medicine
DX: E04.2 Nontoxic multinodular goiter (principal)
CPT/HCPCS: 10005; 88172; 88173

== ENCOUNTER 2022-02-14 09:17 | Emergency (ER) | payer BC, SELFPAY ==
--- NOTE | ~2022-02-14 | XR_ITS ---
EXAMINATION: XR CHEST CLINICAL INFORMATION: Chest pain COMPARISON: None TECHNIQUE: Frontal view of the chest was obtained. FINDINGS: The lungs are well-expanded and clear of acute process. There is a irregular patchy opacity left midlung question pleural calcification. Heart size is enlarged with prominent pulmonary vascularity is normal. There is moderate dextroscoliosis lower dorsal spine. No lytic process. XR/XR chest 1V IMPRESSION: No acute process seen. Mild cardiomegaly.
[2022-02-14 09:20] VITALS: BP 141/76; PULSE 75; RESP 18; TEMP 36.7; O2SAT 98; BMI 31.6
--- NOTE | 2022-02-14 09:26 | ED.CHESTPAIN ---
HPI - Chest Pain General Chief Complaint: Chest Pain Stated Complaint: Chest pain Time Seen by Provider: 02/14/22 09:26 Source: patient Mode of arrival: other (Transferred from Radiology Department on a stretcher) Limitations: no limitations History of Present Illness HPI narrative: 66-year-old male who was in the radiology department for a thyroid biopsy. The patient had his thyroid biopsied and then shortly after the biopsy he complained of chest pain. A rapid response was activated and I evaluated the patient and the radiology department. Given his complaint of chest pain, was transported to the emergency department for evaluation. Patient states that he has been experiencing daily chest pain for the last 2 months. He states that the pain is a sharp pain located in his sternal area. He states the pain can last minutes. The pain can come on at rest or with exertion. He states that he has mentioned this pain to his provider but has not had a full evaluation. In the radiology department he told me that he was having a sharp pain which is 2/10. He pointed to his sternum. He states the pain did radiate to his back. He denied neck, jaw or arm pain. He denied lightheadedness, dizziness, nausea, vomiting or diaphoresis associated with the pain. He has not noticed any significant dyspnea on exertion or shortness of breath over the last 2 months. He states he occasionally feels like his heart is racing. MD complaint: chest pain Onset (ago): minute(s) (10) Timing of current episode: constant Prior episodes: Yes (Once a day for the past 2 months) Onset: during rest and during exertion Pain radiation: back Severity: mild Pain scale (0-10): 2 Quality: sharp Relieving factors: nothing Exacerbating factors: nothing Treatment prior to arrival: none Risk Factors Coronary artery disease risk factors: hyperlipidemia and hypertension Related Data Home Medications Medication Instructions Recorded Confirmed amlodipine 2.5 mg tablet 2.5 mg PO DAILY 05/08/20 02/13/22 niacin 500 mg tablet 500 mg PO DAILY 05/08/20 02/13/22 omega-3 fatty acids 1,000 mg 1,000 mg PO DAILY 05/08/20 02/13/22 capsule (Fish Oil Concentrate) vitamins A,C,F-yyxt-bbslvb 14,320 1 cap PO ONCE 05/08/20 02/13/22 unit-226 mg-200 unit capsule (PreserVision AREDS) Previous Rx's Medication Instructions Recorded atorvastatin 10 mg tablet 10 mg PO DAILY 90 days #90 tabs 10/23/21 potassium citrate 10 mEq (1,080 20 meq PO BID 90 days #360 tabs 11/28/21 mg) tablet,extended release (Urocit-K 10) ropinirole 0.25 mg tablet See Rx Instructions PO BEDTIME 30 12/18/21 days #120 tabs allopurinol 100 mg tablet 100 mg PO DAILY 90 days #90 tabs 01/21/22 metoprolol succinate 25 mg 25 mg PO DAILY #30 tabs 02/13/22 tablet,extended release 24 hr rivaroxaban 20 mg tablet 20 mg PO DAILY 90 days #90 tabs 02/13/22 Allergies Allergy/AdvReac Type Severity Reaction Status Date / Time No Known Allergies Allergy Verified 02/13/22 12:55 [No Known Allergies*] Review of Systems Review of Systems: Yes all other systems are reviewed and are negative PMFSH Past Medical History [facility] Narrative: Social history: The patient denies tobacco use. He states that he did drink alcohol heavily but stopped in June of 2021. He denies drug use. Medical History Acute respiratory failure with hypoxia Arthritis Atrial fibrillation with rapid ventricular response Bacteremia GERD (gastroesophageal reflux disease) Hip pain History of kidney stones Hypercholesterolemia Hypertension Left bundle branch block Multinodular thyroid Obesity Obstructive sleep apnea Polycystic liver disease Scoliosis Thyroid enlargement Tubular adenoma of colon Vitamin D deficiency Surgical History History of appendectomy History of colonoscopy History of lithotripsy History of removal of cyst History of thyroidectomy Family History Family History Father Medical history unknown Mother Medical history unknown Social History Social History Household Members: Spouse Housing: House Do you presently have visiting nurse or other home services: No Alcohol intake: never Patient Tobacco Use Status: Never used Tobacco e-Cigarette/Vaping Use: Never Used Second Hand Smoke Exposure: No Use of substances other than those prescribed or required for medical reasons: No Advance Directives: No Advance Directives Information Provided: No Current occupational status: employed Cognitive needs: No Hearing needs: No Vision needs: No Physical Exam Vital Signs: Vital Signs: Last Vital Signs Temp 97.8 F 02/14/22 12:00 Pulse 78 02/14/22 12:00 Resp 18 02/14/22 12:00 BP 151/79 H 02/14/22 12:00 Pulse Ox 97 02/14/22 12:00 O2 Del Method 02/14/22 12:00 BMI result Body Mass Index 31.6 Const: General: cooperative and no acute distress Orientation/consciousness: oriented to person and oriented to place Limitations: no limitations HEENT: Head: Yes normal to inspection, Yes normocephalic and Yes atraumatic Ears: external ears normal General nose exam: Normal external nose present Face and sinus: Yes normal facial exam Mouth: Normal oral and palatal mucosa present Throat: Yes posterior oropharynx normal Eyes: General: appearance normal, both eyes and all related structures Pupils: Equal, round and reactive pupils present Neck: Other: Patient does have a bandage over his left anterior neck in the area of the biopsy site. Patient has minimal tenderness palpation of this area, there is no soft tissue swelling or erythema noted. Neck: Yes no lymphadenopathy, Yes trachea midline and Yes supple Chest: Chest palpation & inspection: normal inspection of the chest and normal palpation of entire chest wall Resp: Effort & Inspection: normal respiratory effort and able to speak in complete sentences Auscultation: clear to auscultation bilaterally Cardio: Rate: regular rate Rhythm: regular rhythm Heart sounds: S1 normal heart sound present, S2 normal heart sound present and no murmurs GI: Inspection: Yes normal to inspection Palpation (GI): Soft to palpation, nontender and no guarding Auscultation: normal bowel sounds : General: Yes no CVA tenderness Back/Spine/Pelvis: Back: no CVA tenderness Skin: General skin exam: no rashes or lesions noted Neuro: General: oriented to person and oriented to place Cranial nerves: Yes CN's II-XII intact bilaterally and Yes Equal, round and reactive pupils present Cognition (Neuro): normal cognition Motor exam (neuro): 5/5 motor strength present throughout Extrem: General: Yes normal to inspection Psych: Appearance: grossly normal Speech and movement: Normal speech and movement present Affect: normal affect Attitude: cooperative Thought process: Normal thought process present Thought content: Normal thought content present Course Course Course Narrative: 66-year-old male who who is in the radiology department for ultrasound-guided biopsy of his left thyroid gland, when he developed chest pain after the procedure was completed. Patient describes the pain is a sharp pain located in his sternum, pain was 2/10 in did radiate to his back. He had no other concerning symptoms. States he has had similar symptoms once or twice a day for the last 2 months. These symptoms can come on at rest or with exertion and last minutes. The patient has not had any dyspnea on exertion or shortness of breath. His physical examination was unremarkable. Patient's 12 EKG was unremarkable as well. Chest x-ray revealed no acute disease, radiologist interpreted as mild cardiomegaly. Patient's WBC was slightly low at 4200, bilirubin was elevated at 1.1. INR is elevated 2.1. Patient's initial high sensitivity troponin I was below detectable limits. 3 hour repeat troponin was also below detectable limits. At this time I do not think the patient's pain is secondary to acute myocardial injury. 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 MDM - Chest Pain Lab Data Result diagrams: 02/14/22 09:39 02/14/22 09:39 Labs: Lab Results 02/14/22 02/14/22 02/14/22 Range/Units 09:39 09:39 09:39 WBC 4.2 L (4.8-10.8) X10*3/uL RBC 4.85 (4.60-5.80) X10*6/uL Hgb 14.2 (14.0-18.0) g/dl Hct 43.9 (42.0-52.0) % MCV 90.5 (80.0-98.0) fL MCH 29.3 (27.0-33.0) pg MCHC 32.3 (31.0-36.0) g/dl RDW 13.7 (11.0-16.0) % Plt Count 173 (160-400) X10*3/uL MPV 9.2 L (9.4-12.4) fL Immature Gran % (Auto) 0.0 (0.0-0.4) % Neut % (Auto) 60.1 (45-73) % Lymph % (Auto) 27.4 (20-40) % [place] % (Auto) 8.7 (2-11) % Eos % (Auto) 3.1 (0-4) % Baso % (Auto) 0.7 (0-2) % Lymph # (Auto) 1.1 L (1.2-4.9) X10*3/uL [place] # (Auto) 0.4 (0.1-1.2) X10*3/uL Eos # (Auto) 0.1 (0.0-0.4) X10*3/uL Baso # (Auto) 0.0 (0.0-0.2) X10*3/uL Abs Immat Gran (auto) 0.00 (0.00-0.03) X10*3/uL Absolute Neuts (auto) 2.5 (2.0-8.3) x10*3/uL Absolute Nucleated RBC 0.000 (0.0-0.012) X10*3/uL Nucleated RBC % (auto) 0.0 (0.0-0.2) /100WBC PT 24.7 H (10.0-13.1) SEC INR 2.1 H (0.9-1.1) APTT 39.1 H (26.0-36.4) SEC Sodium 144 (135-145) mmol/L Potassium 3.8 (3.3-5.1) mmol/L Chloride 109 H (96-108) mmol/L Carbon Dioxide 28 (22-29) mmol/L Anion Gap 11 L (12-20) BUN 16 (9-16) mg/dL Creatinine 0.89 (0.5-1.4) mg/dL Estim Creat Clear Calc 108.6 Estimated GFR > 60 Random Glucose 114 D (60-115) mg/dL Calcium 8.6 (8.4-10.2) mg/dL Total Bilirubin 1.1 H (0.0-1.0) mg/dL AST 14 (5-37) U/L ALT 20 (0-40) U/L Alkaline Phosphatase 82 (39-117) U/L Troponin I High Sens (<3.5-35.0) ng/L Total Protein 6.0 L (6.5-8.0) g/dL Albumin 3.8 (3.5-5.0) g/dL Lipase 25 (8-78) U/L 02/14/22 02/14/22 02/14/22 Range/Units 09:39 11:16 12:22 WBC (4.8-10.8) X10*3/uL RBC (4.60-5.80) X10*6/uL Hgb (14.0-18.0) g/dl Hct (42.0-52.0) % MCV (80.0-98.0) fL MCH (27.0-33.0) pg MCHC (31.0-36.0) g/dl RDW (11.0-16.0) % Plt Count (160-400) X10*3/uL MPV (9.4-12.4) fL Immature Gran % (Auto) (0.0-0.4) % Neut % (Auto) (45-73) % Lymph % (Auto) (20-40) % [place] % (Auto) (2-11) % Eos % (Auto) (0-4) % Baso % (Auto) (0-2) % Lymph # (Auto) (1.2-4.9) X10*3/uL [place] # (Auto) (0.1-1.2) X10*3/uL Eos # (Auto) (0.0-0.4) X10*3/uL Baso # (Auto) (0.0-0.2) X10*3/uL Abs Immat Gran (auto) (0.00-0.03) X10*3/uL Absolute Neuts (auto) (2.0-8.3) x10*3/uL Absolute Nucleated RBC (0.0-0.012) X10*3/uL Nucleated RBC % (auto) (0.0-0.2) /100WBC PT (10.0-13.1) SEC INR (0.9-1.1) APTT (26.0-36.4) SEC Sodium (135-145) mmol/L Potassium (3.3-5.1) mmol/L Chloride (96-108) mmol/L Carbon Dioxide (22-29) mmol/L Anion Gap (12-20) BUN (9-16) mg/dL Creatinine (0.5-1.4) mg/dL Estim Creat Clear Calc Estimated GFR Random Glucose (60-115) mg/dL Calcium (8.4-10.2) mg/dL Total Bilirubin (0.0-1.0) mg/dL AST (5-37) U/L ALT (0-40) U/L Alkaline Phosphatase (39-117) U/L Troponin I High Sens < 3.5 D < 3.5 < 3.5 (<3.5-35.0) ng/L Total Protein (6.5-8.0) g/dL Albumin (3.5-5.0) g/dL Lipase (8-78) U/L Discharge Plan Discharge Clinical Impression: Chest pain Patient Disposition: Home, Self-Care Instructions: Chest Pain (DC) Additional Instructions: Your laboratory evaluation was unremarkable. Your chest x-ray was unremarkable. Your high sensitivity troponin I (a marker of heart attack/heart damage) was initially below detectable limits and your repeat 3 hour troponin was also below detectable limits which is very reassuring and suggesting that your pain today was not caused by a heart attack pain. Based on your description of her pain, fact that your pain can come on at rest and with exertion, I do not think that this pain is being caused by your heart however you should follow-up with your doctor to discuss your pain in to see if you need any further testing. Continue taking medications as prescribed by your providers. Follow-up with your doctor in 2 days. Please return to the emergency department if your symptoms get worse or if you develop any symptoms that are concerning to you. Prescriptions: No Action atorvastatin 10 mg tablet 10 mg PO DAILY 90 Days Qty: 90 1RF allopurinol 100 mg tablet 100 mg PO DAILY 90 Days Qty: 90 2RF rivaroxaban 20 mg tablet 20 mg PO DAILY 90 Days Qty: 90 1RF Rx Instructions: start on 07/18/21 metoprolol succinate 25 mg tablet extended release 24 hr 25 mg PO DAILY Qty: 30 5RF amlodipine 2.5 mg tablet 2.5 mg PO DAILY niacin 500 mg tablet 500 mg PO DAILY omega-3 fatty acids [Fish Oil Concentrate] 1,000 mg capsule 1,000 mg PO DAILY PreserVision AREDS 14320-226-200 laoi-dl-ypwg capsule 1 cap PO ONCE potassium citrate [Urocit-K 10] 10 mEq (1,080 mg) tablet extended release 20 meq PO BID 90 Days Qty: 360 1RF ropinirole 0.25 mg tablet See Rx Instructions PO BEDTIME 30 Days Qty: 120 4RF Rx Instructions: 1-4 tab q HS orally bedtime; administer 1-3 hours before bedtime
--- NOTE | 2022-02-14 09:28 | ECG_ITS ---
Test Reason : chest pain Blood Pressure : / mmHG Vent. Rate : 072 BPM Atrial Rate : 072 BPM P-R Int : 142 ms QRS Dur : 102 ms QT Int : 404 ms P-R-T Axes : 061 084 077 degrees QTc Int : 442 ms Normal sinus rhythm ST & T wave abnormality, consider anterior ischemia Abnormal ECG When compared with ECG of 26-JUN-2021 18:47, QRS axis Shifted right T wave inversion no longer evident in Inferior leads T wave inversion now evident in Anterior leads Referred By: Ever Meléndez Electronically Signed By:LUDMILA GANN
[2022-02-14 09:45] LABS: MANUAL DIFF FLAG NO
[2022-02-14 09:46] LABS: Basophils Percent Auto 0.7 % (0-2); Eosinophils Absolute Auto 0.1 X10*3/uL (0.0-0.4); Eosinophils Percent Auto 3.1 % (0-4); Hematocrit 43.9 % (42.0-52.0); Hemoglobin 14.2 g/dl (14.0-18.0); Lymphocytes Absolute Auto 1.1 X10*3/uL (1.2-4.9); Lymphocytes Percent Auto 27.4 % (20-40); Mean Corpuscular HGB Conc 32.3 g/dl (31.0-36.0); Mean Corpuscular Hemoglobin 29.3 pg (27.0-33.0); Mean Corpuscular Volume 90.5 fL (80.0-98.0); Mean Platelet Volume 9.2 fL (9.4-12.4); Monocytes Absolute Auto 0.4 X10*3/uL (0.1-1.2); Monocytes Percent Auto 8.7 % (2-11); Neutrophils Absolute Auto 2.5 x10*3/uL (2.0-8.3); Neutrophils Percent Auto 60.1 % (45-73); Platelet Count 173 X10*3/uL (160-400); Red Blood Count 4.85 X10*6/uL (4.60-5.80); Red Cell Distribution Width 13.7 % (11.0-16.0); White Blood Count 4.2 X10*3/uL (4.8-10.8)
[2022-02-14 09:52] LABS: INTERNATIONAL NORM RATIO 2.1 (0.9-1.1); Prothrombin Time 24.7 SEC (10.0-13.1)
[2022-02-14 09:55] LABS: Partial Thromboplastin Time 39.1 SEC (26.0-36.4)
[2022-02-14 10:06] LABS: Alanine Aminotransferase 20 U/L (0-40); Albumin Level 3.8 g/dL (3.5-5.0); Alkaline Phosphatase 82 U/L (39-117); Anion Gap 11 (12-20); Aspartate Amino Transferase 14 U/L (5-37); Bilirubin Total 1.1 mg/dL (0.0-1.0); Blood Urea Nitrogen 16 mg/dL (9-16); Calcium 8.6 mg/dL (8.4-10.2); Carbon Dioxide 28 mmol/L (22-29); Chloride 109 mmol/L (96-108); Creatinine Clr Calc Pharmacy 108.6; Estimated Glomerular Filt Rate > 60; Glucose Random 114 mg/dL (60-115); Lipase 25 U/L (8-78); Potassium 3.8 mmol/L (3.3-5.1); Sodium 144 mmol/L (135-145)
[2022-02-14 10:13] LABS: Troponin-I High Sensitivity < 3.5 ng/L (<3.5-35.0)
[2022-02-14 10:20] VITALS: BP 129/59; PULSE 72; RESP 16; O2SAT 98
[2022-02-14] MEDS: Aspirin 81 MG TAB.CHEW 324 MG PO (11:11)
[2022-02-14] MEDS: 0.9 % Sodium Chloride 1,000 ML 999 ML IV (11:12)
--- NOTE | 2022-02-14 11:16 | PC.NURSE ---
patient a&ox3, monitor car operator intact nsr, labs drawn, pt medicated per order, call schwartz within reach, will continue to monitor.
[2022-02-14 11:41] LABS: Troponin-I High Sensitivity < 3.5 ng/L (<3.5-35.0)
[2022-02-14 12:00] VITALS: BP 151/79; PULSE 78; RESP 18; TEMP 36.6; O2SAT 97
[2022-02-14 12:49] LABS: Troponin-I High Sensitivity < 3.5 ng/L (<3.5-35.0)
--- NOTE | 2022-02-14 12:53 | PC.NURSE ---
patient a&ox3, laboratory monitor intact, nsr 70s, vss, ivf running per order, pt currently denying pain states he just feels a little pressure, call schwartz within reach, will continue to monitor.
== END 2022-02-14 13:22 | disposition home or self-care (01) ==
PROVIDERS: Emergency Provider Emergency Medicine Emergency Medical Services; PCP Internal Medicine
DX: R07.9 Chest pain, unspecified (principal); I48.0 Paroxysmal atrial fibrillation; I10 Essential (primary) hypertension; Z86.711 Personal history of pulmonary embolism; E78.00 Pure hypercholesterolemia, unspecified; Z79.02 Long term (current) use of antithrombotics/antiplatelets; Z79.899 Other long term (current) drug therapy; Z79.01 Long term (current) use of 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
CPT/HCPCS: 36415; 71045; 80053; 83690; 84484; 85025; 85610; 85730; 93005; 96360; 96361; 99284; 99285

== ENCOUNTER 2022-02-27 14:41 | Outpatient (REF) | payer BC, SELFPAY ==
[2022-02-27 16:13] LABS: Vitamin D 25-OH Total 36.5 ng/mL (>30)
[2022-02-28 13:17] LABS: Calcium (PTHI) 9.3 mg/dL (8.6-10.3); PTHI 43 pg/mL (16-77)
== END 2022-02-27 14:42 | disposition home or self-care (01) ==
LOC: HO.LAB 14:41
PROVIDERS: PCP Internal Medicine; Visit Provider Internal Medicine
DX: E55.9 Vitamin D deficiency, unspecified (principal)
CPT/HCPCS: 36415; 82040; 82306; 83970

== ENCOUNTER 2022-05-27 12:49 | Outpatient (REF) | payer BC, SELFPAY ==
--- NOTE | ~2022-05-27 | US_ITS ---
EXAMINATION: US RETROPERITONEAL LIMITED (RENAL ONLY) CLINICAL INFORMATION: Calculus of kidney. COMPARISON: US renal 11/23/2021 and 05/07/2021. CT abdomen pelvis 01/07/2021. TECHNIQUE: Real-time imaging of the kidneys. FINDINGS: RIGHT KIDNEY: 10.8 x 5.2 x 4.4 cm (SAG x AP x TRV). The kidney is normal in size, contour, and echogenicity. Renal cortical thickness is normal. There is a 1.2 x 1 x 1.5 cm cyst with wall calcification versus milk of calcium cyst. There is a small 3 mm stone in the lower pole. No hydronephrosis. LEFT KIDNEY: 10.0 x 6.2 x 5.7 cm (SAG x AP x TRV). The kidney is normal in size, contour, and echogenicity. Renal cortical thickness is normal. There is a 6 mm cyst in the lower pole. There are 2 stones measuring 3 mm in the midpole. No renal hydronephrosis. US/US renal BI IMPRESSION: Small bilateral renal stones. Small bilateral renal cysts.
== END 2022-05-27 12:50 | disposition home or self-care (01) ==
LOC: HO.US 12:49
PROVIDERS: Visit Provider Urology
DX: N20.0 Calculus of kidney (principal)
CPT/HCPCS: 76775

== ENCOUNTER → 2022-06-19 12:51 | Outpatient (BNVA) | payer BC, SELFPAY | PROVIDERS: PCP Internal Medicine; Visit Provider Nurse Practitioner Family | DX: I48.0 Paroxysmal atrial fibrillation (principal) ==

== ENCOUNTER → 2022-06-26 12:53 | Outpatient (BNVA) | payer BC, SELFPAY | PROVIDERS: PCP Internal Medicine; Visit Provider Nurse Practitioner Family | DX: G25.81 Restless legs syndrome (principal) ==

== ENCOUNTER 2022-07-02 08:20 | Outpatient (REF) | payer BC, SELFPAY ==
[2022-07-02 09:44] LABS: Free T4 (Free Thyroxine) 1.93 ng/dL (0.71-1.85); Thyroid Stimulating Hormone 0.05 uIU/mL (0.32-4.0)
[2022-07-04 05:44] LABS: Thyroglobulin <0.1 ng/mL; Thyroglobulin Antibodies 443 IU/mL (< or = 1)
[2022-07-08 01:54] LABS: Thyroglobulin Antibody 368 IU/mL (<=1)
[2022-07-14 23:06] LABS: Thyroglobulin LC/MS/MS <0.4 ng/mL (Athyrotic: <0)
== END 2022-07-02 08:21 | disposition home or self-care (01) ==
LOC: HO.LAB 08:20
PROVIDERS: PCP Internal Medicine; Visit Provider Internal Medicine
DX: E04.2 Nontoxic multinodular goiter (principal)
CPT/HCPCS: 36415; 84432; 84439; 84443; 86800

== ENCOUNTER → 2022-07-11 12:16 | Outpatient (BNVA) | payer BC, SELFPAY | PROVIDERS: PCP Internal Medicine; Visit Provider Internal Medicine | DX: Z13.89 Encounter for screening for other disorder (principal) ==

== ENCOUNTER 2022-08-19 10:15 | Outpatient (REF) | payer BC, SELFPAY ==
[2022-08-19 13:10] LABS: Free T4 (Free Thyroxine) < 0.42 ng/dL (0.71-1.85)
[2022-08-20 06:39] LABS: Thyroglobulin 0.2 ng/mL
[2022-08-20 06:43] LABS: Thyroglobulin Antibodies 245 IU/mL (< or = 1)
[2022-08-27 15:03] LABS: Thyroglobulin Antibody 185 IU/mL (<=1); Thyroglobulin LC/MS/MS <0.4 ng/mL (Athyrotic: <0)
== END 2022-08-19 10:16 | disposition home or self-care (01) ==
LOC: HO.LAB 10:15
PROVIDERS: PCP Internal Medicine; Visit Provider Internal Medicine
DX: C73 Malignant neoplasm of thyroid gland (principal)
CPT/HCPCS: 36415; 84432; 84439; 84443; 86800

== ENCOUNTER → 2022-08-28 09:41 | Outpatient (BNVA) | payer BC, SELFPAY | PROVIDERS: PCP Internal Medicine; Visit Provider Internal Medicine | DX: Z13.89 Encounter for screening for other disorder (principal) ==

== ENCOUNTER → 2022-09-10 13:29 | Outpatient (BNVA) | payer BC, SELFPAY | PROVIDERS: PCP Internal Medicine; Visit Provider Internal Medicine Cardiovascular Disease | DX: I48.0 Paroxysmal atrial fibrillation (principal); I10 Essential (primary) hypertension | CPT/HCPCS: 93005 ==

== ENCOUNTER 2022-09-11 11:25 | Outpatient (REF) | payer BC, SELFPAY ==
[2022-09-11 14:06] LABS: Free T4 (Free Thyroxine) 1.91 ng/dL (0.71-1.85)
[2022-09-11 14:19] LABS: Thyroid Stimulating Hormone 0.12 uIU/mL (0.32-4.0)
== END 2022-09-11 11:26 | disposition home or self-care (01) ==
LOC: HO.LAB 11:25
PROVIDERS: PCP Internal Medicine; Visit Provider Internal Medicine
DX: C73 Malignant neoplasm of thyroid gland (principal); Z79.899 Other long term (current) drug therapy
CPT/HCPCS: 36415; 84439; 84443

== ENCOUNTER → 2022-09-25 13:57 | Outpatient (BNVA) | payer BC, SELFPAY | PROVIDERS: PCP Internal Medicine; Visit Provider Nurse Practitioner Family | DX: Z13.89 Encounter for screening for other disorder (principal) ==

== ENCOUNTER 2022-10-01 14:38 | Outpatient (REF) | payer BC, SELFPAY ==
[2022-10-01 15:37] LABS: Influenza A PCR NEGATIVE (Negative); Influenza B PCR NEGATIVE (Negative); Resp Syncy Virus RNA Qual PCR NEGATIVE (Negative); SARS COV2 PCR INHOUSE NEGATIVE (Negative)
== END 2022-10-01 14:39 | disposition home or self-care (01) ==
LOC: HO.LNP 14:38
PROVIDERS: Visit Provider Physician Assistant
DX: Z20.822 Contact with and (suspected) exposure to COVID-19 (principal)
CPT/HCPCS: 0241U

== ENCOUNTER 2022-11-12 14:19 | Outpatient (REF) | payer BC, SELFPAY ==
[2022-11-12 15:31] LABS: MANUAL DIFF FLAG NO
[2022-11-12 17:01] LABS: Basophils Percent Auto 0.9 % (0-2); Eosinophils Absolute Auto 0.2 X10*3/uL (0.0-0.4); Eosinophils Percent Auto 5.3 % (0-4); Hematocrit 42.4 % (42.0-52.0); Hemoglobin 13.8 g/dl (14.0-18.0); Imm Gran Abs Auto 0.01 X10*3/uL (0.00-0.03); Imm Gran Pct Auto 0.2 % (0.0-0.4); Lymphocytes Absolute Auto 0.9 X10*3/uL (1.2-4.9); Lymphocytes Percent Auto 19.2 % (20-40); Mean Corpuscular HGB Conc 32.5 g/dl (31.0-36.0); Mean Corpuscular Hemoglobin 29.9 pg (27.0-33.0); Mean Corpuscular Volume 91.8 fL (80.0-98.0); Mean Platelet Volume 9.8 fL (9.4-12.4); Monocytes Absolute Auto 0.5 X10*3/uL (0.1-1.2); Monocytes Percent Auto 11.5 % (2-11); Neutrophils Absolute Auto 2.9 x10*3/uL (2.0-8.3); Neutrophils Percent Auto 62.9 % (45-73); Platelet Count 180 X10*3/uL (160-400); Red Blood Count 4.62 X10*6/uL (4.60-5.80); Red Cell Distribution Width 13.2 % (11.0-16.0); White Blood Count 4.5 X10*3/uL (4.8-10.8)
[2022-11-12 17:17] LABS: Estimated Average Glucose 100 mg/dL; Hemoglobin A1c % 5.1 %
[2022-11-12 17:24] LABS: Alanine Aminotransferase 24 U/L (0-40); Albumin Level 3.9 g/dL (3.5-5.0); Alkaline Phosphatase 92 U/L (39-117); Anion Gap 11 (12-20); Aspartate Amino Transferase 16 U/L (5-37); Bilirubin Direct 0.3 mg/dL (0.0-0.5); Bilirubin Total 1.1 mg/dL (0.0-1.0); Blood Urea Nitrogen 14 mg/dL (9-16); Carbon Dioxide 27 mmol/L (22-29); Chloride 108 mmol/L (96-108); Cholesterol 148 mg/dL; Estimated Glomerular Filt Rate > 60; Glucose Random 81 mg/dL (60-115); HDL Cholesterol 42 mg/dL; LDL Cholesterol Calculated 89 mg/dl; Potassium 4.3 mmol/L (3.3-5.1); Sodium 142 mmol/L (135-145); Total Protein 6.3 g/dL (6.5-8.0); Triglycerides 87 mg/dL; Uric Acid 5.1 mg/dL (3.4-7.0)
[2022-11-12 17:54] LABS: Folate 16.6 ng/mL (> or = 4.0); Free T4 (Free Thyroxine) 1.51 ng/dL (0.71-1.85); Prostate Specific Antigen Scr 1.96 ng/mL (<0.05-4.0); Thyroid Stimulating Hormone 0.01 uIU/mL (0.32-4.0); Vitamin B12 409 pg/mL (200-900)
== END 2022-11-12 14:20 | disposition home or self-care (01) ==
LOC: HO.LAB 14:19
PROVIDERS: PCP Internal Medicine; Visit Provider Internal Medicine
DX: Z12.5 Encounter for screening for malignant neoplasm of prostate (principal); K76.89 Other specified diseases of liver; E78.00 Pure hypercholesterolemia, unspecified; I10 Essential (primary) hypertension; R73.02 Impaired glucose tolerance (oral)
CPT/HCPCS: 36415; 80053; 80061; 82248; 82607; 82746; 83036; 84153; 84439; 84443; 84550; 85025

== ENCOUNTER 2022-11-28 10:26 | Outpatient (REF) | payer BC, SELFPAY ==
--- NOTE | ~2022-11-28 | US_ITS ---
EXAMINATION: US ABDOMEN COMPLETE CLINICAL INFORMATION: Hepatic cyst. COMPARISON: Renal ultrasound 05/27/2022 and 11/23/2021. CT abdomen and pelvis 01/07/2021. MRI abdomen 03/13/2018. X-ray KUB 02/25/2018 and 02/04/2018. TECHNIQUE: Real-time imaging of the abdominal viscera. FINDINGS: PANCREAS: The pancreas appears unremarkable, without masses or ductal dilatation, with the exception of the tail which is obscured by bowel gas. ABDOMINAL AORTA: The proximal, mid, and distal segments are normal in caliber. INFERIOR VENA CAVA: The IVC is slightly compressed by hepatic cyst. LIVER: The liver measures 16.1 cm in length. The liver contour is normal. Parenchymal echogenicity is normal. Multiple complex/septated cysts are present, the largest is in the right lobe of the liver measuring about 12.7 x 12.9 x 13.8 cm. No definite solid hepatic masses are seen. Similar findings could be seen on the 01/07/2021 CT scan. There is no intrahepatic biliary duct dilatation seen. GALLBLADDER: The gallbladder is contracted with a 0.5 cm thick-walled. Calcifications are present in the wall. COMMON BILE DUCT: Normal in caliber measuring 0.44 cm in diameter. RIGHT KIDNEY: There is a benign-appearing Bosniak class II cyst in the mid right kidney measuring 1.3 cm that has a punctate echogenic focus in the wall consistent with an area of calcification. This needs no additional imaging or followup. No solid renal masses. There is a lower pole 3 mm echogenic shadowing focus with twinkle artifact consistent with a nonobstructing stone. No hydronephrosis or focal parenchymal lesions. The kidney measures 11.6 cm in maximum dimension. LEFT KIDNEY: Three echogenic foci present in the left kidney ranging in size from 5 to 9 mm consistent with nonobstructing calculi. No hydronephrosis or focal parenchymal lesions. The kidney measures 10.9 cm in maximum dimension. SPLEEN: Normal. The spleen measures 11.2 cm in maximum dimension. FREE FLUID: None. US/US abdomen complete IMPRESSION: 1. Multiple complex/septated unchanged hepatic cysts. No additional imaging or followup is needed. 2. Bilateral nonobstructing renal are again demonstrated.
== END 2022-11-28 10:27 | disposition home or self-care (01) ==
LOC: HO.HMGCX 10:26
PROVIDERS: PCP Internal Medicine; Visit Provider Internal Medicine
DX: K76.89 Other specified diseases of liver (principal)
CPT/HCPCS: 76700

== ENCOUNTER 2022-12-30 10:20 | Outpatient (AMB) | payer BC, SELFPAY ==
--- NOTE | 2022-12-30 10:21 | MHC.OFFVIS ---
Intake Intake Visit Reasons: F/U Thyroid Cancer Allergies No Known Allergies [No Known Allergies*] Allergy (Verified 12/30/22 10:42) Medication List - Last Reconciled 12/30/22 by May Sykes DO albuterol sulfate 90 mcg/actuation 2 puffs inhalation Q6H PRN allopurinol 100 mg PO DAILY 90 days amlodipine 2.5 mg PO DAILY atorvastatin 10 mg PO DAILY 90 days levothyroxine 175 mcg PO DAILY metoprolol succinate ER 50 mg PO DAILY milk thistle 175 mg PO BID niacin 500 mg PO DAILY omega-3 fatty acids (Fish Oil Concentrate) 1,000 mg PO DAILY potassium citrate ER (Urocit-K 10) 20 mEq (2 x 10 mEq (1,080 mg)) PO BID 90 days rivaroxaban 20 mg PO DAILY 90 days vitamins A,C,Z-pthe-umhhov 4,296 mcg-226 mg-90 mg (PreserVision AREDS) 1 cap PO ONCE HPI HPI Comments History of Present Illness Details 67 YO M with PMHx recent PE due to COVID-19 infection now on xarelto, who is seen in F/U for thyroid cancer. Was initially diagnosed with multinodular thyroid over 20 years ago at the [facility] in [place]. He states he had a R hemithyroidectomy due to a toxic nodule, and reports no cancer was identified. He has remained euthyroid off any thyroid hormone supplementation since that time. His PCP ordered a thyroid US in 2021 which revealed a 1.5 cm LMP thyroid nodule. He was subsequently referred to Endocrinology. 02/14/2022 he underwent FNA biopsy of his LMP 1.5 cm thyroid nodule with cytology Suspicious for malignancy (bethesda category V). He was referred for a completion thyroidectomy and underwent this 05/10/2022. 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 There was no lymphatic invasion, no angioinvasion and no perineural invasion. There was macroscopic extrathyroidal extension identified as the tumor was invading the strap muscles. There was also a positive posterior margin. He received I131 treatment with 152 mCi 08/21/2022 via withdrawal method. Labs 08/19/2022 TSH 62.8, TG <0.4 and TGAB 185. Post-treatment WBS revealed foci of radioiodine uptake in the bilateral thyroid bed. There was also increased radiotracer uptake within multiple hepatic cysts in the right and left hepatic lobes that was thought to be passive diffusion. These appeared unchanged from a prior CT. He remains on levothyroxine 175 mcg PO daily now. Labs 07/02/2022 with TSH <0.05, TG <0.1 and TGAB 368. TSH remains at goal. He reports feeling well and has no complaints today. Labs: Laboratory Tests 11/12/22 15:29 TSH 0.01 L Free T4 1.51 PFSH Medical History Acute respiratory failure with hypoxia Arthritis Atrial fibrillation with rapid ventricular response Bacteremia GERD (gastroesophageal reflux disease) Hepatic cyst Hip pain History of kidney stones Hypercholesterolemia Hypertension Left bundle branch block Multinodular thyroid Obesity Obstructive sleep apnea Paroxysmal atrial fibrillation Polycystic liver disease Scoliosis Thyroid cancer Thyroid enlargement Tubular adenoma of colon Vitamin D deficiency Surgical History History of appendectomy History of colonoscopy History of lithotripsy History of removal of cyst History of thyroidectomy Family History Father Medical history unknown Mother Medical history unknown Social History Household Members: Spouse Housing: House Do you presently have visiting nurse or other home services: No Alcohol intake: never Patient Tobacco Use Status: Never used Tobacco e-Cigarette/Vaping Use: Never Used Second Hand Smoke Exposure: No service: No Current occupational status: employed Cognitive needs: No Hearing needs: No Vision needs: Yes Assessment & Plan Assessment & Plan (1) Thyroid cancer: Comment: Status post thyroidectomy Dr. 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 This is considered high risk for recurrence. He underwent I131 ablation with 152 mCi 08/21/2022. Posttreatment WBS revealed residual uptake within the thyroid bed, and some suspected passive diffusion in the hepatic cysts. TG antibodies are positive so unfortunately TG levels are not usable. TG antibodies are trending down. We reviewed this today. TSH remains at goal. Goal TSH is <0.1-0.5. Plan for now is for him to F/U in 6 months time. He will repeat labs at that time and will be scheduled for his next surveillance WBS, which will be due Jul 2023. He is following with GI for his hepatic cysts. All of his questions were answered. He is in agreement with this plan of care. I spent 20 minutes in reviewing the record, seeing the patient and documenting in the medical record, including 5 minutes on the phone with the Patient. Telehealth Telehealth Location of provider rendering services: practice address Location of patient: address on file Patient Identification confirmed using: Name, : Yes Telehealth method: voice only Patient verbally consented to treatment: Yes Patient verbally consented to billing insurance company: Yes Patient informed of any privacy concerns related to visit: Yes Coding Level of Care Code Tele Est Pt Level 3 (14039) Diagnoses Thyroid cancer C73
== END 2022-12-30 12:16 | disposition home or self-care (01) ==
LOC: HO.ENCR 10:20
PROVIDERS: PCP Internal Medicine; Visit Provider Internal Medicine
DX: C73 Malignant neoplasm of thyroid gland (principal)
CPT/HCPCS: 99443

== ENCOUNTER → 2022-12-30 10:20 | Outpatient (BNVA) | payer BC, SELFPAY | PROVIDERS: PCP Internal Medicine; Visit Provider Internal Medicine ==

== ENCOUNTER 2023-01-21 03:30 | Inpatient (IN) | payer MEDICARE, BC, SELFPAY ==
[2023-01-21] VITALS (8 sets, daily range): BP systolic 102–130; BP diastolic 60–80; PULSE 84–147; RESP 14–20; TEMP 36.4–36.9; O2SAT 94–96; BMI 32.0; BMI 32.5
--- NOTE | 2023-01-21 | ECG_ITS ---
Test Reason : A FIB Blood Pressure : / mmHG Vent. Rate : 137 BPM Atrial Rate : 000 BPM P-R Int : 000 ms QRS Dur : 102 ms QT Int : 322 ms P-R-T Axes : 000 074 -17 degrees QTc Int : 486 ms Atrial fibrillation with rapid ventricular response Nonspecific ST abnormality Abnormal QRS-T angle, consider primary T wave abnormality Abnormal ECG When compared with ECG of 14-FEB-2022 09:08, Atrial fibrillation has replaced Sinus rhythm Vent. rate has increased BY 65 BPM Non-specific change in ST segment in Inferior leads T wave inversion now evident in Inferior leads Referred By: Generic ED Physician Electronically Signed By:YULIET GRAY
--- NOTE | ~2023-01-21 | XR_ITS ---
EXAMINATION: XR CHEST CLINICAL INFORMATION: Low suspicion pulmonary edema. COMPARISON: 02/14/2022. TECHNIQUE: Frontal view of the chest was obtained. FINDINGS: Normal symmetric lung volumes. No parenchymal consolidation. No pleural effusion. Calcified pleural plaques redemonstrated bilaterally. No pneumothorax. Stable cardiomediastinal silhouette Pulmonary vascularity within normal limits. No acute osseous abnormalities. XR/XR chest 1V IMPRESSION: * No acute findings. * Calcified pleural plaques redemonstrated.
[2023-01-21 04:23] LABS: MANUAL DIFF FLAG NO
--- NOTE | 2023-01-21 04:23 | ED_ITS ---
HPI - General Adult General Chief complaint: General Medical Stated complaint: sore throt Time Seen by Provider: 01/21/23 04:09 Source: patient Mode of arrival: EMS Limitations: no limitations History of Present Illness HPI narrative: Patient comes to the emergency room via ambulance complaining of a sore throat. Patient states that couple of hours ago, he woke up with a sore throat. When he woke up he also realized that he had palpitations. Patient known to have AFib with RVR. Patient states he is complaining with his metoprolol and Xarelto. Patient denies any chest pain or shortness of breath. Related Data Home Medications Medication Instructions Recorded Confirmed amlodipine 2.5 mg tablet 2.5 mg PO DAILY 05/08/20 12/30/22 omega-3 fatty acids 1,000 mg 1,000 mg PO DAILY 05/08/20 12/30/22 capsule (Fish Oil Concentrate) vitamins A,C,E-fhzi-xrudvo 4,296 1 cap PO ONCE 05/08/20 12/30/22 mcg-226 mg-90 mg capsule (PreserVision AREDS) milk thistle 175 mg tablet 175 mg PO BID 11/12/22 12/30/22 niacin 500 mg tablet 500 mg PO DAILY 11/12/22 12/30/22 Previous Rx's Medication Instructions Recorded rivaroxaban 20 mg tablet 20 mg PO DAILY 90 days #90 tabs 02/15/22 potassium citrate 10 mEq (1,080 20 meq PO BID nephrolithais 90 06/04/22 mg) tablet,extended release days #360 tabs (Urocit-K 10) metoprolol succinate 50 mg 50 mg PO DAILY #90 tabs 06/19/22 tablet,extended release 24 hr albuterol sulfate 90 mcg/actuation 2 puff inhalation Q6H PRN 10/01/22 aerosol inhaler shortness of breath or wheezing #6.7 grams atorvastatin 10 mg tablet 10 mg PO DAILY 90 days #90 tabs 10/29/22 levothyroxine 175 mcg tablet 175 mcg PO DAILY #30 tabs 12/05/22 allopurinol 100 mg tablet 100 mg PO DAILY 90 days #90 tabs 01/16/23 Allergies Allergy/AdvReac Type Severity Reaction Status Date / Time No Known Allergies Allergy Verified 12/30/22 10:42 [No Known Allergies*] Review of Systems Review of Systems: Constitutional : No Weight loss, No Fever, No Chills, No Night Sweats, No Fatigue, No Malaise ENT/Mouth : No Hearing loss, No Ear Pain, No Nasal Congestion, No Sinus Pain, No Hoarseness, complaining of sore throat, No Rhinorrhea, No Swallowing Difficulty Eyes: No Eye Pain, No Swelling, No Redness, No Foreign Body, No Discharge, No Vision Changes Cardiovascular : No Chest Pain, No SOB, No Dyspnea on Exertion, No Orthopnea, No Edema, complaining of palpitations and rapid heart rate Respiratory : No Cough, No Sputum, No Wheezing, No Smoke Exposure, No Dyspnea Gastrointestinal : No Nausea, No Vomiting, No Diarrhea, No Constipation, No abdominal Pain, No Hematochezia, No Melena Genitourinary : no irregular bleeding, No Dysuria, No Urinary Frequency, No Hematuria, No Urinary Incontinence, No Urgency, No Flank Pain, No Urinary Flow Changes, No Hesitancy Musculoskeletal : No joint pain, No Myalgias, No Joint Swelling Skin : No Skin Lesions, No rash Neuro : No Weakness, No Numbness, No Paresthesias, No Loss of Consciousness, No Dizziness, No Headache Psych : No Anxiety/Panic, No Depression, No SI/HI/AH/VH, No Social Issues, Heme/Lymph: No Bruising, No Bleeding,No Lymphadenopathy Endocrine : No Polyuria, No Polydipsia, No Temperature Intolerance [facility] Past Medical History Medical History Acute respiratory failure with hypoxia Arthritis Atrial fibrillation with rapid ventricular response Bacteremia GERD (gastroesophageal reflux disease) Hepatic cyst Hip pain History of kidney stones Hypercholesterolemia Hypertension Left bundle branch block Multinodular thyroid Obesity Obstructive sleep apnea Paroxysmal atrial fibrillation Polycystic liver disease Scoliosis Thyroid cancer Thyroid enlargement Tubular adenoma of colon Vitamin D deficiency Surgical History History of appendectomy History of colonoscopy History of lithotripsy History of removal of cyst History of thyroidectomy Family History Family History Father Medical history unknown Mother Medical history unknown Social History Social History Household Members: Spouse Housing: House Do you presently have visiting nurse or other home services: No Alcohol intake: never Patient Tobacco Use Status: Never used Tobacco Smoked in Last 30 Days: No e-Cigarette/Vaping Use: Never Used Second Hand Smoke Exposure: No Use of substances other than those prescribed or required for medical reasons: No Advance Directives: No Advance Directives Information Provided: Yes service: No Current occupational status: employed Cognitive needs: No Hearing needs: No Vision needs: Yes Physical Exam ED Vital Signs: Vital Signs - 24 hr 01/21/23 03:36 01/21/23 04:26 01/21/23 05:40 Temperature 98.4 F Pulse Rate 84 147 H 130 H Respiratory Rate 18 20 16 Blood Pressure 130/80 116/71 126/73 Pulse Oximetry 95 96 Oxygen Delivery Method Room Air Room Air BMI result Body Mass Index 32.0 Const Other: Appearance: Alert. Oriented X3. No acute distress. Eyes: Pupils equal, round and reactive to light. ENT: Pharynx normal. No vesicles, no abscesses, no exudates Neck: Normal inspection. Neck supple. No lymph nodes noted. No crepitus CVS: Irregularly irregular heart rate in the 140s, Pulses normal. Normal S1 and S2 Respiratory: No respiratory distress. Breath sounds normal. No Wheezing. No rales Abdomen: Soft and nontender. No rigidity. No distention. Skin: Skin warm and dry. Normal skin color. Normal skin turgor. Extremities: No lower extremity edema. No Lacerations. No Rash Neuro: Oriented X 3. No motor deficit. No sensory deficit. Moving all extremities. No slurred speech. CN 2 through 12 grossly intact Psych: calm, cooperative, normal affect Course Course Course Narrative: -patient's oropharynx looks within normal limits, COVID and strep test pending -patient receiving 5 mg of metoprolol IV for AFib with RVR. Patient usually takes metoprolol at home and states he is compliant with Xarelto as well. Medications Administered Discontinued Medications Generic Name Dose Route Start Last Admin Trade Name Freq PRN Reason Stop Dose Admin Diltiazem HCl 10 mg 01/21/23 05:51 01/21/23 06:05 Diltiazem Hcl 50 Mg/10 Ml Vial IVPUSH 01/21/23 05:52 10 mg STAT STA Administration Metoprolol Tartrate 5 mg 01/21/23 04:22 01/21/23 04:27 Metoprolol Tartrate 5 Mg/5 Ml Vial IVPUSH 01/21/23 04:23 5 mg ONCE ONE Administration Medical Decision Making Medical Decision Making [facility] Narrative: -interpretation of EKG: Atrial fibrillation with RVR, heart rate 137, no ST segment depression or elevation, no T-wave inversion, QTC 486 -patient received a dose of IV metoprolol, IV Cardizem, patient's heart rate still in the 120s. Patient started on a Cardizem drip -patient complaining of oropharyngeal no pain, likely viral pharyngitis. Strep test and COVID test negative. Patient was given 1 dose of p.o. Decadron 0-I discussed the patient with Dr. Palmer, patient being admitted Differential Diagnosis Differential Diagnoses: The differential diagnosis associated with the presentation includes (Atrial fibrillation, atrial flutter. Viral pharyngitis, bacterial pharyngitis, COVID) Admission/Observation Consideration of admission/observation: Escalation of care including admission/observation considered Consult Healthcare Provider Management of the patient was discussed with: Hospitalist Lab Data [facility] Lab Attestation statement: I reviewed the patient's lab results. 01/21/23 04:18 01/21/23 04:18 Labs: Lab Results 01/21/23 01/21/23 01/21/23 Range/Units 04:18 04:18 04:18 WBC 5.1 (4.8-10.8) X10*3/uL RBC 4.92 (4.60-5.80) X10*6/uL Hgb 14.6 (14.0-18.0) g/dl Hct 44.5 (42.0-52.0) % MCV 90.4 (80.0-98.0) fL MCH 29.7 (27.0-33.0) pg MCHC 32.8 (31.0-36.0) g/dl RDW 13.3 (11.0-16.0) % Plt Count 173 (160-400) X10*3/uL MPV 9.5 (9.4-12.4) fL Immature Gran % (Auto) 0.2 (0.0-0.4) % Neut % (Auto) 67.9 (45-73) % Lymph % (Auto) 18.2 L (20-40) % [place] % (Auto) 10.4 (2-11) % Eos % (Auto) 2.7 (0-4) % Baso % (Auto) 0.6 (0-2) % Lymph # (Auto) 0.9 L (1.2-4.9) X10*3/uL [place] # (Auto) 0.5 (0.1-1.2) X10*3/uL Eos # (Auto) 0.1 (0.0-0.4) X10*3/uL Baso # (Auto) 0.0 (0.0-0.2) X10*3/uL Abs Immat Gran (auto) 0.01 (0.00-0.03) X10*3/uL Absolute Neuts (auto) 3.5 (2.0-8.3) x10*3/uL Absolute Nucleated RBC 0.000 (0.0-0.012) X10*3/uL Nucleated RBC % (auto) 0.0 (0.0-0.2) /100WBC Sodium 147 H (135-145) mmol/L Potassium 3.9 (3.3-5.1) mmol/L Chloride 113 H (96-108) mmol/L Carbon Dioxide 23 (22-29) mmol/L Anion Gap 15 (12-20) BUN 19 H (9-16) mg/dL Creatinine 1.02 (0.5-1.4) mg/dL Estim Creat Clear Calc 93.9 Estimated GFR > 60 Random Glucose 117 H (60-115) mg/dL Calcium 9.1 (8.4-10.2) mg/dL Troponin I High Sens 6.0 (<3.5-35.0) ng/L B-Natriuretic Peptide (<100) pg/mL COVID-19 ([facility]UELLE) (Negative) COVID-19 Clin Com S. pyogenes GrpA TERESA (Negative) 01/21/23 01/21/23 01/21/23 Range/Units 04:18 04:50 05:31 WBC (4.8-10.8) X10*3/uL RBC (4.60-5.80) X10*6/uL Hgb (14.0-18.0) g/dl Hct (42.0-52.0) % MCV (80.0-98.0) fL MCH (27.0-33.0) pg MCHC (31.0-36.0) g/dl RDW (11.0-16.0) % Plt Count (160-400) X10*3/uL MPV (9.4-12.4) fL Immature Gran % (Auto) (0.0-0.4) % Neut % (Auto) (45-73) % Lymph % (Auto) (20-40) % [place] % (Auto) (2-11) % Eos % (Auto) (0-4) % Baso % (Auto) (0-2) % Lymph # (Auto) (1.2-4.9) X10*3/uL [place] # (Auto) (0.1-1.2) X10*3/uL Eos # (Auto) (0.0-0.4) X10*3/uL Baso # (Auto) (0.0-0.2) X10*3/uL Abs Immat Gran (auto) (0.00-0.03) X10*3/uL Absolute Neuts (auto) (2.0-8.3) x10*3/uL Absolute Nucleated RBC (0.0-0.012) X10*3/uL Nucleated RBC % (auto) (0.0-0.2) /100WBC Sodium (135-145) mmol/L Potassium (3.3-5.1) mmol/L Chloride (96-108) mmol/L Carbon Dioxide (22-29) mmol/L Anion Gap (12-20) BUN (9-16) mg/dL Creatinine (0.5-1.4) mg/dL Estim Creat Clear Calc Estimated GFR Random Glucose (60-115) mg/dL Calcium (8.4-10.2) mg/dL Troponin I High Sens (<3.5-35.0) ng/L B-Natriuretic Peptide 90 (<100) pg/mL COVID-19 ([facility]MANUELLE) Negative (Negative) COVID-19 Clin Com See Note S. pyogenes GrpA TERESA Negative (Negative) Independent Interpretation I performed an independent interpretation of an: EKG (My interpretation of EKG: Atrial fibrillation with RVR, heart rate 137, no ST segment depression or elevation, nonspecific T-wave inversions in V3, QTC 486) and Plain X-Ray (My interpretation of chest x-ray: No infiltrates) Radiology Impression Discussion of test interpretation with radiology: I have reviewed the radiolog ist's reading. Radiologist Impression: Normal symmetric lung volumes. No parenchymal consolidation. No pleural effusion. Calcified pleural plaques redemonstrated bilaterally. No pneumothorax. Stable cardiomediastinal silhouette Pulmonary vascularity within normal limits. No acute osseous abnormalities. XR/XR chest 1V IMPRESSION: *? No acute findings. *? Calcified pleural plaques redemonstrated. Critical Care Time Critical Care Time Critical Care Time: Yes Total Critical Care Time: 60 Attestation: I have personally provided critical care time. Time includes review of lab data, radiology results, discussion with consultants, and monitoring for potential decompensation. Intervention performed as documented. Discharge Plan Discharge Clinical Impression: Atrial fibrillation with RVR, Acute viral pharyngitis Patient Disposition: Admitted As Inpatient Prescriptions: No Action rivaroxaban 20 mg tablet 20 mg PO DAILY 90 Days Qty: 90 3RF atorvastatin 10 mg tablet 10 mg PO DAILY 90 Days Qty: 90 1RF levothyroxine 175 mcg tablet 175 mcg PO DAILY Qty: 30 3RF allopurinol 100 mg tablet 100 mg PO DAILY 90 Days Qty: 90 3RF amlodipine 2.5 mg tablet 2.5 mg PO DAILY omega-3 fatty acids [Fish Oil Concentrate] 1,000 mg capsule 1,000 mg PO DAILY PreserVision AREDS [id number] epaj-in-cxmn capsule 1 cap PO ONCE albuterol sulfate 90 mcg/actuation HFA aerosol inhaler 2 puff inhalation Q6H PRN (Reason: shortness of breath or wheezing) Qty: 6.7 0RF potassium citrate [Urocit-K 10] 10 mEq (1,080 mg) tablet extended release 20 meq PO BID 90 Days Qty: 360 3RF metoprolol succinate 50 mg tablet extended release 24 hr 50 mg PO DAILY Qty: 90 1RF niacin 500 mg tablet 500 mg PO DAILY milk thistle 175 mg tablet 175 mg PO BID Rx Instructions: give with meal/snack
[2023-01-21 04:24] LABS: Basophils Percent Auto 0.6 % (0-2); Eosinophils Absolute Auto 0.1 X10*3/uL (0.0-0.4); Eosinophils Percent Auto 2.7 % (0-4); Hematocrit 44.5 % (42.0-52.0); Hemoglobin 14.6 g/dl (14.0-18.0); Imm Gran Abs Auto 0.01 X10*3/uL (0.00-0.03); Imm Gran Pct Auto 0.2 % (0.0-0.4); Lymphocytes Absolute Auto 0.9 X10*3/uL (1.2-4.9); Lymphocytes Percent Auto 18.2 % (20-40); Mean Corpuscular HGB Conc 32.8 g/dl (31.0-36.0); Mean Corpuscular Hemoglobin 29.7 pg (27.0-33.0); Mean Corpuscular Volume 90.4 fL (80.0-98.0); Mean Platelet Volume 9.5 fL (9.4-12.4); Monocytes Absolute Auto 0.5 X10*3/uL (0.1-1.2); Monocytes Percent Auto 10.4 % (2-11); Neutrophils Absolute Auto 3.5 x10*3/uL (2.0-8.3); Neutrophils Percent Auto 67.9 % (45-73); Platelet Count 173 X10*3/uL (160-400); Red Blood Count 4.92 X10*6/uL (4.60-5.80); Red Cell Distribution Width 13.3 % (11.0-16.0); White Blood Count 5.1 X10*3/uL (4.8-10.8)
[2023-01-21] MEDS: Metoprolol Tartrate 5 MG/5 ML VIAL IVPUSH (04:27)
[2023-01-21 04:38] LABS: Anion Gap 15 (12-20); Blood Urea Nitrogen 19 mg/dL (9-16); Calcium 9.1 mg/dL (8.4-10.2); Carbon Dioxide 23 mmol/L (22-29); Chloride 113 mmol/L (96-108); Creatinine Clr Calc Pharmacy 93.9; Estimated Glomerular Filt Rate > 60; Glucose Random 117 mg/dL (60-115); Potassium 3.9 mmol/L (3.3-5.1); Sodium 147 mmol/L (135-145)
[2023-01-21 05:03] LABS: B Type Natriuretic Peptide 90 pg/mL (<100)
--- NOTE | 2023-01-21 05:13 | MHC.EDTECH ---
Covid swab collected and sent to lab.
[2023-01-21 05:14] LABS: COVID-19 Test Negative (Negative); IDNOW Serial# BCCEAD1C
--- NOTE | 2023-01-21 05:36 | PC.NURSE ---
patient throat was swapped patient was in need of going to the bathroom patient stated he was able to ambulate patient was observed walking with no issues patient will continue to be monitored for safety
[2023-01-21 05:59] LABS: IDNOW Serial# 08D9AD1C; Strep A Nucleic Acid Negative (Negative)
[2023-01-21] MEDS: dilTIAZem HCL 50 MG/10 ML VIAL 10 MG IVPUSH (06:05)
[2023-01-21] MEDS: 0.9 % Sodium Chloride 1,000 ML 999 ML IVCONT (07:20)
[2023-01-21] MEDS: dexAMETHasone 4 MG TABLET PO (07:21)
--- NOTE | 2023-01-21 07:25 | PC.NURSE ---
patient resting in bed, HR is less then 120. patient respirations equal and unlabored. pt states his throat still hurts, patient managing own secretions and airway
--- NOTE | 2023-01-21 07:31 | PM.IMHP ---
History of Present Illness Date of Service: 01/21/23 Chief Complaint: Sore throat and palpitations 67-year-old male with a past medical history of hypertension, hyperlipidemia, obstructive sleep apnea, polycystic liver disease, obesity, GERD, history of kidney stones, history of thyroid disease status post thyroidectomy, scoliosis, history of tubular adenoma of the colon, history of AFIB on xarelto since June 2021. He presented to the ED via ambulance after waking in the middle of the neight and experiencing sore throat and palpitations, there was no sob or chest pain, in ED noted to be in AFIB with RVR and given IV cardizem push with peristent tachycardia and started on cardizem drip with heart rate now trending down. Sore throat work up negative for covid, strep given IC dexamethasone 4 mg for hives that I didn't see Review of Systems Review of Systems: +sore throat, palpitation, no chest pain or sob, Yes all other systems are reviewed and are negative [facility] Medical History Acute respiratory failure with hypoxia Arthritis Atrial fibrillation with rapid ventricular response Bacteremia GERD (gastroesophageal reflux disease) Hepatic cyst Hip pain History of kidney stones Hypercholesterolemia Hypertension Left bundle branch block Multinodular thyroid Obesity Obstructive sleep apnea Paroxysmal atrial fibrillation Polycystic liver disease Scoliosis Thyroid cancer Thyroid enlargement Tubular adenoma of colon Vitamin D deficiency Family History Father Medical history unknown Mother Medical history unknown Surgical History History of appendectomy History of colonoscopy History of lithotripsy History of removal of cyst History of thyroidectomy Social History Household Members: Spouse Housing: House Do you presently have visiting nurse or other home services: No Alcohol intake: never Patient Tobacco Use Status: Never used Tobacco Smoked in Last 30 Days: No e-Cigarette/Vaping Use: Never Used Second Hand Smoke Exposure: No Use of substances other than those prescribed or required for medical reasons: No Advance Directives: No Advance Directives Information Provided: Yes service: No Current occupational status: employed Cognitive needs: No Hearing needs: No Vision needs: Yes Meds Allergies Allergy/AdvReac Type Severity Reaction Status Date / Time No Known Allergies Allergy Verified 12/30/22 10:42 [No Known Allergies*] Active Medications: Current Medications Sodium Chloride (Ns) 1,000 mls @ 999 mls/hr IVCONT .Q1H1M ONE Stop: 01/21/23 07:34 Last Admin: 01/21/23 07:20 Dose: 999 mls/hr Diltiazem HCl 125 mg/ Sodium (Chloride) 125 mls @ 0 mls/hr IVCONT .Q0M [facility]; Protocol Home Medications Medication Instructions Recorded Confirmed Last Taken Type amlodipine 2.5 mg tablet 2.5 mg PO DAILY 05/08/20 01/21/23 01/20/23 History vitamins A,C,A-stmm-tnuoru 4,296 1 cap PO DAILY 05/08/20 01/21/23 01/20/23 History mcg-226 mg-90 mg capsule (PreserVision AREDS) milk thistle 175 mg tablet 175 mg PO BID 11/12/22 01/21/23 01/20/23 History niacin 500 mg tablet 500 mg PO DAILY 11/12/22 01/21/23 01/20/23 History levothyroxine 175 mcg tablet 175 mcg PO DAILY@0600 01/21/23 01/21/23 01/20/23 History omega-3s 300 pn-igm-dii-other 1 cap PO DAILY 01/21/23 01/21/23 01/20/23 History nawhy2q-ywmo oil 1,000 mg capsule ([place]-3 Fish Oil) potassium citrate 10 mEq (1,080 20 meq PO BID 01/21/23 01/21/23 01/20/23 History mg) tablet,extended release rivaroxaban 20 mg tablet 20 mg PO DAILY 01/21/23 01/21/23 01/20/23 History Physical Exam Vital Signs and Narrative: Vital Signs: Last Vital Signs Temp 98.4 F 01/21/23 03:36 Pulse 108 H 01/21/23 07:22 Resp 15 01/21/23 07:22 BP 107/60 01/21/23 07:22 Pulse Ox 95 01/21/23 07:22 O2 Del Method Room Air 01/21/23 07:22 BMI result Body Mass Index 32.0 Const: Other: Constitutional: Alert, in no distress, overweight. Mental Status: Oriented to person, place and time. Eyes: Pupils are equal, round and reactive to light. Ear, Nose and Throat: Oropharynx clear, mucous membranes moist. Ears and nose without eformities. Trachea midline. Respiratory: Clear to auscultation. No wheezing, rales or rhonchi. Cardiovascular: S1 S2 regular. No murmurs, rubs or gallops. Gastrointestinal: Abdomen soft, non-tender, non-distended. Normal bowel sounds.? Neurologic: Cranial nerves II-XII grossly intact. No focal neurological deficits. Moves all extremities spontaneously.? Skin: No rashes or lesions.? Musculoskeletal: No cyanosis or clubbing. Psychiatric: Normal mood and affect? Results Labs 01/21/23 04:18 01/21/23 04:18 Labs: Laboratory Results - last 24 hr 01/21/23 01/21/23 01/21/23 04:18 04:18 04:18 MCV 90.4 MCH 29.7 MCHC 32.8 RDW 13.3 Plt Count 173 MPV 9.5 Immature Gran % (Auto) 0.2 Neut % (Auto) 67.9 Lymph % (Auto) 18.2 L [place] % (Auto) 10.4 Eos % (Auto) 2.7 Baso % (Auto) 0.6 Lymph # (Auto) 0.9 L [place] # (Auto) 0.5 Eos # (Auto) 0.1 Baso # (Auto) 0.0 Abs Immat Gran (auto) 0.01 Absolute Neuts (auto) 3.5 Absolute Nucleated RBC 0.000 Nucleated RBC % (auto) 0.0 Anion Gap 15 Estim Creat Clear Calc 93.9 Estimated GFR > 60 Random Glucose 117 H Calcium 9.1 B-Natriuretic Peptide 90 COVID-19 ([facility]) COVID-19 Clin Com S. pyogenes GrpA TERESA 01/21/23 01/21/23 04:50 05:31 MCV MCH MCHC RDW Plt Count MPV Immature Gran % (Auto) Neut % (Auto) Lymph % (Auto) [place] % (Auto) Eos % (Auto) Baso % (Auto) Lymph # (Auto) [place] # (Auto) Eos # (Auto) Baso # (Auto) Abs Immat Gran (auto) Absolute Neuts (auto) Absolute Nucleated RBC Nucleated RBC % (auto) Anion Gap Estim Creat Clear Calc Estimated GFR Random Glucose Calcium B-Natriuretic Peptide COVID-19 ([facility]MANU[facility]LE) Negative COVID-19 Clin Com See Note S. pyogenes GrpA TERESA Negative Imaging Radiologist's Impressions: Impressions Chest X-Ray 01/21/23 04:35 IMPRESSION: * No acute findings. * Calcified pleural plaques redemonstrated. Assessment and Plan (1) Atrial fibrillation with RVR: Status: Acute Plan 67 male with Long-standing persistent Afib here with sore throat palpitation and found to be in AFIB with RVR Persistent AFIB with RVR on cardizem now, titrate to heart rate less 100, add oral cardizem in addition to metoprolol if need, cardiology consult for possible cardioversion. Hypothyroidism--continue Levothyroxine HLD--Lipitor HTN-Norvasc Gout--Allopurinol GERD--prilosec DVT P: Xarelto Admission for at least 2 midnight for aFIB with RVR needing IV med for control Time Spent With Patient Time: Total time managing care of this patient today ____ minutes. Quality Stroke Does the patient have a stroke diagnosis?: No VTE Prior VTE?: No VTE Risk Level:: Medical - moderate - high VTE Device Contraindication: Treatment Not Indicated VTE Drug Contraindication: N/A - Med Ordered
--- NOTE | 2023-01-21 08:46 | PHA.MEDREC ---
Pharmacy Consult ? Medication Reconciliation Pharmacy has completed the medication reconciliation. Spoke to patient to confirm meds. Per patient, they stopped taking gabapentin 300mg daily for 2 months because it was for restless leg syndrome, but it wasn't really working. Patient does mention, however, that they have neuropathy. Leaving off of med rec because it has been 2 months since they had taken it.
[2023-01-21] MEDS: Levothyroxine Sodium 175 MCG TABLET PO (09:07)
[2023-01-21] MEDS: Atorvastatin Calcium 10 MG TABLET PO (09:08)
[2023-01-21] MEDS: allopurinoL 100 MG TABLET PO (09:08)
[2023-01-21] MEDS: Acetaminophen 325 MG TABLET 650 MG PO (09:08)
[2023-01-21] MEDS: Metoprolol Succinate ER 50 MG TAB.ER.24H PO (09:11)
[2023-01-21] MEDS: 0.9 % Sodium Chloride Flush 3 ML SYRINGE IVFLUSH ×2 (09:13→14:34)
--- NOTE | 2023-01-21 09:16 | PC.NURSE ---
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 pt med was held
--- NOTE | 2023-01-21 09:41 | PM.CNCAR ---
History of Present Illness History of Present Illness Date of Service: 01/21/23 Chief complaint: afib with rvr Narrative: This is a cardiology consultation regarding atrial fibrillation rapid ventricular rate. He is generally seen by Dr. Rivera in our clinic. Last seen in August of this year. According to his note, patient underwent stress test in 2019 at [facility] which did not show any perfusion defects. He has a background of paroxysmal atrial flutter. He also has rate-related left bundle-branch block when he gets AFib with rapid rate. However, in sinus he does not have the left bundle-branch block. At the time of last visit, he was doing well. Patient states that he woke up with palpitations. He also had some sore throat. Hence not clear if he is having like a viral infection precipitating atrial fibrillation. He is still in atrial fibrillation with rapid rate. Home medication includes lkxa-[id number]-[id number] along with Xarelto. Apart from palpitations he does not have any chest pain or shortness of breath or any other cardiac symptoms. He is describing some neck discomfort and states he has had thyroid surgery in the past. Review of Systems Review of Systems: Yes all other systems are reviewed and are negative Constitutional: Constitutional: Reports as per HPI and Reports no additional constitutional complaints Eyes: Eyes: Reports as per HPI and Denies no additional eye complaints ENT: Denies system reviewed and no additional complaints, except as documented and Reports as per HPI Cardiovascular: Cardiovascular: Reports as per HPI, Reports no additional cardiovascular complaints, Denies acrocyanosis, Denies cool extremities, Denies chest pain, Denies leg edema, Denies lightheadedness, Denies palpitations and Denies dyspnea Respiratory: Respiratory: Reports as per HPI, Denies no additional respiratory complaints and Denies dyspnea Gastrointestinal: Gastrointestinal: Reports as per HPI and Denies no additional gastrointestinal complaints Genitourinary: Genitourinary: Reports no additional male genitourinary complaints and Reports as per HPI Musculoskeletal: Musculoskeletal: Reports no additional musculoskeletal complaints and Reports as per HPI Integumentary/Breasts: Skin/Breast: Reports system reviewed and no additional complaints, except as docu Neurologic: Reports system reviewed and no additional complaints, except as documented and Reports as per HPI Psychiatric: Psychiatric: Reports no additional psychiatric complaints and Reports as per HPI Endocrine: Endocrine: Reports no additional endocrine complaints, Reports as per HPI and Denies palpitations Hematologic/Lymphatic: Hematologic/Lymphatic: Reports no additional hematologic/lymphatic complaints and Reports as per HPI Allergic/Immunologic: Allergic/Immunologic: Reports no additional allergic/immunologic complaints and Reports as per HPI [facility] Past Medical History Medical History Acute respiratory failure with hypoxia Arthritis Atrial fibrillation with rapid ventricular response Bacteremia GERD (gastroesophageal reflux disease) Hepatic cyst Hip pain History of kidney stones Hypercholesterolemia Hypertension Left bundle branch block Multinodular thyroid Obesity Obstructive sleep apnea Paroxysmal atrial fibrillation Polycystic liver disease Scoliosis Thyroid cancer Thyroid enlargement Tubular adenoma of colon Vitamin D deficiency Family History Family History Father Medical history unknown Mother Medical history unknown Surgical History Surgical History History of appendectomy History of colonoscopy History of lithotripsy History of removal of cyst History of thyroidectomy Social History Social History Household Members: Spouse Housing: House Do you presently have visiting nurse or other home services: No Alcohol intake: never Patient Tobacco Use Status: Never used Tobacco Smoked in Last 30 Days: No e-Cigarette/Vaping Use: Never Used Second Hand Smoke Exposure: No Use of substances other than those prescribed or required for medical reasons: No Advance Directives: No Advance Directives Information Provided: Yes service: No Current occupational status: employed Cognitive needs: No Hearing needs: No Vision needs: Yes Meds Allergies Allergy/AdvReac Type Severity Reaction Status Date / Time No Known Allergies Allergy Verified 12/30/22 10:42 [No Known Allergies*] Active Medications: Current Medications Acetaminophen (Acetaminophen 325 Mg Tablet) 650 mg PO Q6H PRN PRN Reason: Pain, Mild (Pain Scale 1-3) Last Admin: 01/21/23 09:08 Dose: 650 mg Allopurinol (Allopurinol 100 Mg Tablet) 100 mg PO DAILY [facility] Last Admin: 01/21/23 09:08 Dose: 100 mg Amlodipine Besylate (Amlodipine Besylate 2.5 Mg Tablet) 2.5 mg PO DAILY [facility]; Protocol Last Admin: 01/21/23 09:12 Dose: Not Given Atorvastatin Calcium (Atorvastatin Calcium 10 Mg Tablet) 10 mg PO DAILY [facility] Last Admin: 01/21/23 09:08 Dose: 10 mg Docusate Sodium (Docusate Sodium 100 Mg Capsule) 100 mg PO DAILY PRN PRN Reason: Constipation Diltiazem HCl 125 mg/ Sodium (Chloride) 125 mls @ 0 mls/hr IVCONT .Q0M [facility]; Protocol Levothyroxine Sodium (Levothyroxine Sodium 175 Mcg Tablet) 175 mcg PO DAILY@0600 [facility] Last Admin: 01/21/23 09:07 Dose: 175 mcg Magnesium Hydroxide (Milk Of Magnesia 30 Ml Oral.Susp) 30 ml PO DAILY PRN PRN Reason: Constipation Metoprolol Succinate (Metoprolol Succinate Er 50 Mg Tab.Er.24h) 50 mg PO DAILY [facility]; Protocol Last Admin: 01/21/23 09:11 Dose: 50 mg Non-Formulary Medication (Potassium Citrate) 20 meq PO BID [facility] Sodium Chloride (0.9 % Sodium Chloride Flush 3 Ml Syringe) 3 ml IVFLUSH QSHIFT [facility] Last Admin: 01/21/23 09:13 Dose: 3 ml Home Medications Medication Instructions Recorded Confirmed Last Taken Type amlodipine 2.5 mg tablet 2.5 mg PO DAILY 05/08/20 01/21/23 01/20/23 History vitamins A,C,X-oaam-cnbekc 4,296 1 cap PO DAILY 05/08/20 01/21/23 01/20/23 History mcg-226 mg-90 mg capsule (PreserVision AREDS) milk thistle 175 mg tablet 175 mg PO BID 11/12/22 01/21/23 01/20/23 History niacin 500 mg tablet 500 mg PO DAILY 11/12/22 01/21/23 01/20/23 History levothyroxine 175 mcg tablet 175 mcg PO DAILY@0600 01/21/23 01/21/23 01/20/23 History omega-3s 300 sz-ozh-gtd-other 1 cap PO DAILY 01/21/23 01/21/23 01/20/23 History ocmcy6t-gpbk oil 1,000 mg capsule ([place]-3 Fish Oil) potassium citrate 10 mEq (1,080 20 meq PO BID 01/21/23 01/21/23 01/20/23 History mg) tablet,extended release rivaroxaban 20 mg tablet 20 mg PO DAILY 01/21/23 01/21/23 01/20/23 History Physical Exam Vital Signs: Vital Signs: Last Vital Signs Temp 97.6 F 01/21/23 07:49 Pulse 86 01/21/23 07:49 Resp 16 01/21/23 07:49 BP 112/62 01/21/23 07:49 Pulse Ox 96 01/21/23 07:49 O2 Del Method Room Air 01/21/23 07:49 BMI result Body Mass Index 32.0 Const: General: comfortable and no acute distress Orientation/consciousness: patient oriented x3 HEENT: Other: Unremarkable Head: Yes normal to inspection Neck: Neck: Yes normal visual inspection Chest: Chest palpation & inspection: normal inspection of the chest Resp: Auscultation: clear to auscultation bilaterally Cardio: Palpation: normal PMI Heart sounds: S1 normal heart sound present, S2 normal heart sound present, no gallops, no murmurs and no rubs GI: Palpation (GI): Soft to palpation Back/Spine/Pelvis: Other: unremarkable Skin: General skin exam: no rashes or lesions noted Neuro: General: patient oriented x3 Extrem: General: Yes normal to inspection Psych: Mental Status: mental status grossly normal Objective Labs and Meds 01/21/23 04:18 01/21/23 04:18 Lab results: Laboratory Results - last 24 hr 01/21/23 01/21/23 01/21/23 04:18 04:18 04:18 WBC 5.1 RBC 4.92 Hgb 14.6 Hct 44.5 MCV 90.4 MCH 29.7 MCHC 32.8 RDW 13.3 Plt Count 173 MPV 9.5 Immature Gran % (Auto) 0.2 Neut % (Auto) 67.9 Lymph % (Auto) 18.2 L [place] % (Auto) 10.4 Eos % (Auto) 2.7 Baso % (Auto) 0.6 Lymph # (Auto) 0.9 L [place] # (Auto) 0.5 Eos # (Auto) 0.1 Baso # (Auto) 0.0 Abs Immat Gran (auto) 0.01 Absolute Neuts (auto) 3.5 Absolute Nucleated RBC 0.000 Nucleated RBC % (auto) 0.0 Sodium 147 H Potassium 3.9 Chloride 113 H Carbon Dioxide 23 Anion Gap 15 BUN 19 H Creatinine 1.02 Estim Creat Clear Calc 93.9 Estimated GFR > 60 Random Glucose 117 H Calcium 9.1 Troponin I High Sens 6.0 B-Natriuretic Peptide COVID-19 ([facility]) COVID-19 Clin Com S. pyogenes GrpA TERESA 01/21/23 01/21/23 01/21/23 04:18 04:50 05:31 WBC RBC Hgb Hct MCV MCH MCHC RDW Plt Count MPV Immature Gran % (Auto) Neut % (Auto) Lymph % (Auto) [place] % (Auto) Eos % (Auto) Baso % (Auto) Lymph # (Auto) [place] # (Auto) Eos # (Auto) Baso # (Auto) Abs Immat Gran (auto) Absolute Neuts (auto) Absolute Nucleated RBC Nucleated RBC % (auto) Sodium Potassium Chloride Carbon Dioxide Anion Gap BUN Creatinine Estim Creat Clear Calc Estimated GFR Random Glucose Calcium Troponin I High Sens B-Natriuretic Peptide 90 COVID-19 ([facility]) Negative COVID-19 Clin Com See Note S. pyogenes GrpA TERESA Negative ECG Interpretation: EKG with atrial fibrillation at a rate of 137/Min; nonspecific ST-T changes. In a prior EKG from 2021, sinus rhythm. Anterior T inversions. Imaging Radiologist's impression: Impressions Chest X-Ray 01/21/23 04:35 IMPRESSION: * No acute findings. * Calcified pleural plaques redemonstrated. Assessment and Plan (1) Atrial fibrillation with RVR: Status: Acute Plan High sensitivity troponins are within normal limits. There are several levels checked in the last year or so on all of them are within range. Some in the high normal range. Echocardiogram with LVEF of 55-60%. There is a mention of basal inferior akinesis. Stress test reported to have no clear evidence of any ischemia. Fixed defect in the basal lateral wall thought to be artifactual. Overall, atrial fibrillation rapid rate that could have been precipitated by a viral infection. Home medication includes metoprolol ER 50 mg daily, amlodipine 2.5 mg daily and rivaroxaban 20 mg daily. We can hold the amlodipine for now. Can try a low-dose Cardizem drip instead. If he still does not convert by tomorrow or so, then probably cardioversion. Discussed with Dr. Antunez. Time Spent With Patient Time: Total time managing care of this patient today ____ minutes. Procedures Date of Service Date of Service: 01/21/23
[2023-01-21] MEDS: dilTIAZem HCL 125 MG in 0.9 % Sodium Chloride 100 ML 10 MG IVCONT (10:19)
--- NOTE | 2023-01-21 10:23 | PC.NURSE ---
patient in afib, rate 120s, recommended by cardiology to start diltizem drip to get patient back into normal sinus rhythm. Diltiazem drip started at 10mg/hr
--- NOTE | 2023-01-21 10:55 | PC.NURSE ---
PT REPORTING CHEST TIGHTNESS, POINTING TO HIS EPIGASTRIC REGION. NO CHANGES ARE NOTED ON THE TACK DRILLER. ONSET AFTER BREAKFAST PROVIDER MADE AWARE
--- NOTE | 2023-01-21 11:10 | ECG_ITS ---
Test Reason : CHEST PAIN Blood Pressure : / mmHG Vent. Rate : 122 BPM Atrial Rate : 000 BPM P-R Int : 000 ms QRS Dur : 098 ms QT Int : 338 ms P-R-T Axes : 000 074 -25 degrees QTc Int : 481 ms Atrial fibrillation with rapid ventricular response Nonspecific ST and T wave abnormality Abnormal ECG When compared with ECG of 21-JAN-2023 04:06, T wave inversion now evident in Anterior leads Referred By: César Antunez Electronically Signed By:YULIET GRAY
--- NOTE | 2023-01-21 12:21 | PC.NURSE ---
REPORT GIVEN FOR ADMISSION
--- NOTE | 2023-01-21 14:32 | PC.NURSE ---
pt converted to SR 60s-70s beats per minute. notified. Cardizem gtt DC
[2023-01-21] MEDS: Throat Lozenge, Medicated LOZENGE 1 LOZENGE MUCOUS MEM (14:34)
--- NOTE | 2023-01-21 14:58 | PM.DS ---
DS: Providers Provider Date of Service: 01/21/23 Date of admission: 01/21/23 07:47 Primary care physician: Bhakti Reyes MD Consults: 01/21/23 08:40 Consult to Cardiology Routine Consulting Provider: [facility] – [place] Cardiovascular Services Reason for consultation: AFIB with RVR Has provider been notified: Yes 01/21/23 08:41 Consult to Cardiology Routine Consulting Provider: [facility] – [place] [facility] Services Reason for consultation: afib with rvr Has provider been notified: Yes DS: Diagnosis Discharge Diagnosis (1) Atrial fibrillation with RVR: Status: Acute DS: Summary Hospital Course Hospital Course: Chief Complaint: Sore throat and palpitations 67-year-old male with a past medical history of hypertension, hyperlipidemia, obstructive sleep apnea, polycystic liver disease, obesity, GERD, history of kidney stones, history of thyroid disease status post thyroidectomy, scoliosis, history of tubular adenoma of the colon, history of? AFIB on xarelto since June 2021. He presented? to the ED via ambulance after waking in the middle of the neight and experiencing sore throat and palpitations, there was no sob or chest pain, in ED noted to be? in AFIB with RVR and given IV cardizem push with peristent tachycardia and started on cardizem drip with heart rate now trending down. Sore throat work up negative for covid, strep given IC dexamethasone 4 mg? for hives that I didn't see Hospital course: He was admitted on IV cardizem and hours later converted to normal sinus rythm. Cardilogy recommends changing Norvasc 2.5 mg to cardizem CD 120 mg daily, he will continue Xarelto 20 mg daily for stroke prevention. Sore throat is likely viral process, negative covid, negative strep and no erythema of throat, can take OTC lozenge. Cardiology will arrange for follow up Time Spent with Patient Time attestation: Total time managing care of this patient today ____ minutes. Discharge coordination time: Greater than 30 minutes Quality: Safe Use of Opioids Does Pt have an Active Cancer Diagnosis on the Problem List?: No Quality: Stroke Does the patient have a stroke diagnosis?: No Physical Exam Vital Signs: Vital Signs: Last Vital Signs Temp 97.6 F 01/21/23 12:38 Pulse 88 01/21/23 12:38 Resp 20 01/21/23 12:38 BP 126/71 01/21/23 12:38 Pulse Ox 95 01/21/23 12:38 O2 Del Method Room Air 01/21/23 12:38 BMI result Body Mass Index 32.5 DS: Data Data Completed and Pending Completed studies during hospitalization [Text1]: Procedures Assistance with Respiratory Ventilation, Less than 24 Consecutive Hours, Continuous Positive Airway Pressure (06/26/21) Introduction of Remdesivir Anti-infective into Peripheral Vein, Percutaneous Approach, [employer] (06/26/21) Labs on day of discharge: Laboratory Results - last 24 hr 01/21/23 01/21/23 01/21/23 04:18 04:18 04:18 WBC 5.1 RBC 4.92 Hgb 14.6 Hct 44.5 MCV 90.4 MCH 29.7 MCHC 32.8 RDW 13.3 Plt Count 173 MPV 9.5 Immature Gran % (Auto) 0.2 Neut % (Auto) 67.9 Lymph % (Auto) 18.2 L [place] % (Auto) 10.4 Eos % (Auto) 2.7 Baso % (Auto) 0.6 Lymph # (Auto) 0.9 L [place] # (Auto) 0.5 Eos # (Auto) 0.1 Baso # (Auto) 0.0 Abs Immat Gran (auto) 0.01 Absolute Neuts (auto) 3.5 Absolute Nucleated RBC 0.000 Nucleated RBC % (auto) 0.0 Sodium 147 H Potassium 3.9 Chloride 113 H Carbon Dioxide 23 Anion Gap 15 BUN 19 H Creatinine 1.02 Estim Creat Clear Calc 93.9 Estimated GFR > 60 Random Glucose 117 H Calcium 9.1 Troponin I High Sens 6.0 B-Natriuretic Peptide COVID-19 ([facility]) COVID-19 Clin Com S. pyogenes GrpA TERESA 01/21/23 01/21/23 01/21/23 04:18 04:50 05:31 WBC RBC Hgb Hct MCV MCH MCHC RDW Plt Count MPV Immature Gran % (Auto) Neut % (Auto) Lymph % (Auto) [place] % (Auto) Eos % (Auto) Baso % (Auto) Lymph # (Auto) [place] # (Auto) Eos # (Auto) Baso # (Auto) Abs Immat Gran (auto) Absolute Neuts (auto) Absolute Nucleated RBC Nucleated RBC % (auto) Sodium Potassium Chloride Carbon Dioxide Anion Gap BUN Creatinine Estim Creat Clear Calc Estimated GFR Random Glucose Calcium Troponin I High Sens B-Natriuretic Peptide 90 COVID-19 ([facility]) Negative COVID-19 Clin Com See Note S. pyogenes GrpA TERESA Negative Discharge Plan Discharge Anticipated Discharge Date/Time: 01/21/23 14:52 Patient Disposition: Home, Self-Care Discharge Diagnosis: AFIB with RVR, Sore throat Referrals: Po,Bhakti Vaughan MD [Primary Care Provider] - 1 Week Discharge Medications: New diltiazem HCl [Cardizem CD] 120 mg capsule,extended release 24hr 120 mg PO DAILY Qty: 30 0RF Continued atorvastatin 10 mg tablet 10 mg PO DAILY 90 Days Qty: 90 1RF allopurinol 100 mg tablet 100 mg PO DAILY 90 Days Qty: 90 3RF potassium citrate 10 mEq (1,080 mg) tablet extended release 20 meq PO BID levothyroxine 175 mcg tablet 175 mcg PO DAILY@0600 rivaroxaban 20 mg tablet 20 mg PO DAILY [place]-3 Fish Oil 300-1,000 mg Capsule 1 cap PO DAILY PreserVision AREDS 14,320-226-200 hvfx-we-phhe capsule 1 cap PO DAILY metoprolol succinate 50 mg tablet extended release 24 hr 50 mg PO DAILY Qty: 90 1RF niacin 500 mg tablet 500 mg PO DAILY milk thistle 175 mg tablet 175 mg PO BID Rx Instructions: give with meal/snack Discontinued amlodipine 2.5 mg tablet 2.5 mg PO DAILY Discharge Orders: Discharge Order (Routine); Ordered 01/21/23 Ordered By: César Antunez Diet: Advance to usual diet Activity on Discharge: As tolerated Stand Alone Forms: Patient Portal Discharge page Care Plan Goals: control of afib Health Concerns: atril fibrilation sore throat Plan of Treatment: your atrial fibrilation has converted back to normal sinus rythm stop taking Norvasc and instead take Cardizem 120 mg daily to both control your heart rate and atrial fibrilation Your atomic process engineer office will arrange for follow up and give you a call Assessment: as above
== END 2023-01-21 16:50 | disposition home or self-care (01) | DRG 201 ==
LOC: HO.ED 06:47 → HO.EDOVER 07:59 → HO.IMC 11:15
PROVIDERS: Admitting Provider Internal Medicine; Emergency Provider Emergency Medicine; PCP Internal Medicine; Visit Provider Internal Medicine
DX: I48.19 Other persistent atrial fibrillation (principal); Q44.6 Cystic disease of liver; I10 Essential (primary) hypertension; G47.33 Obstructive sleep apnea (adult) (pediatric); E89.0 Postprocedural hypothyroidism; J02.8 Acute pharyngitis due to other specified organisms; M10.9 Gout, unspecified; K21.9 Gastro-esophageal reflux disease without esophagitis; E78.5 Hyperlipidemia, unspecified; Z20.822 Contact with and (suspected) exposure to COVID-19; Z79.890 Hormone replacement therapy; Z79.01 Long term (current) use of 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; Z79.899 Other long term (current) drug therapy
CPT/HCPCS: 36415; 71045; 80048; 83880; 84484; 85025; 87635; 87651; 93005; 99285; J8540

== ENCOUNTER → 2023-01-21 07:47 | Outpatient (BNV) | payer BC, SELFPAY | PROVIDERS: Admitting Provider Internal Medicine; Emergency Provider Emergency Medicine; PCP Internal Medicine; Visit Provider Internal Medicine | DX: I48.91 Unspecified atrial fibrillation (principal) | CPT/HCPCS: 99222; 99235 ==

== ENCOUNTER → 2023-01-21 07:47 | Outpatient (BNV) | payer BC, SELFPAY | PROVIDERS: Admitting Provider Internal Medicine; Emergency Provider Emergency Medicine; PCP Internal Medicine; Visit Provider Internal Medicine | DX: I48.91 Unspecified atrial fibrillation (principal); R94.31 Abnormal electrocardiogram [ECG] [EKG] | CPT/HCPCS: 93010; 99223 ==

== ENCOUNTER 2023-02-05 12:43 | Outpatient (AMB) | payer BC, SELFPAY ==
--- NOTE | 2023-02-05 13:19 | A.OFFPC_ITS ---
Vital Signs 02/05/23 13:20 Height 6 ft 2 in Weight 250 lb BMI 32.1 BP 122/60 Blood Pressure Location Lt brachial Position Sitting Pulse 66 Pulse Source Pulse Oximeter Pulse Oximetry (%) 95 Oxygen Delivery Method Room Air Intake Visit Reasons: [facility] 01-21-23 Allergies No Known Allergies [No Known Allergies*] Allergy (Verified 02/05/23 13:26) Medication List - Last Reconciled 02/05/23 by Bhakti Reyes MD allopurinol 100 mg PO DAILY 90 days atorvastatin 10 mg PO DAILY 90 days diltiazem HCl (Cardizem CD) 120 mg PO DAILY levothyroxine 175 mcg PO DAILY@0600 metoprolol succinate ER 50 mg PO DAILY milk thistle 175 mg PO BID niacin 500 mg PO DAILY nystatin 5 mL PO TID 7 days expuk-1z-njc-epa-fish oil 300-1,000 mg (Allen-3 Fish Oil) 1 cap PO DAILY potassium citrate ER 20 mEq PO BID rivaroxaban 20 mg PO DAILY vitamins A,C,X-uyht-vjqsrb 4,296 mcg-226 mg-90 mg (PreserVision AREDS) 1 cap PO DAILY Tobacco use date assessed: 11/04/22 Fall risk assessment: No Falls in past year Last assessed Fall Risk: 02/05/23 Dental Screening Dental Screen Date: 02/05/23 Did you have a dental visit in the last 12 months?: Yes Did you have a dental problem in the last 6 months where you did not have access to dental care?: No Was dental information given to patient?: Patient has dentist HPI [facility] 01-21-23 HPI Details 67-year-old obese male with a history of thyroid cancer atrial fibrillation impaired glucose tolerance obstructive sleep apnea hypertension nephrolithiasis GERD last seen in October 2022. Blood work was requested and is here for follow-up patient is up-to-date with colon cancer screening. Patient was recently in the hospital having palpitations and sore throat deny any shortness of breath ED noted atrial fibrillation with rapid ventricular rate and was given IV Cardizem and started on a drip i patient converted to normal sinus rhythm cardiology advised change Norvasc to Cardizem 120 mg once a day continue with anticoagulation as for the thyroid cancer endocrinology follow-up 20 years ago be a had right hemithyroidectomy no cancer at that time. 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 Patient also followed up with [facility] for the hepatic cyst doing ultrasound as well as the blood work. Blood work notes hypernatremia/dehydration elevated blood sugar but for the october blood work normal results with thyroid showing less than 0.01 TSH. complains of sore throat still difficult/painful swallowing, no cough , no n no v. basal skin cancer R cheek area [facility] Medical History Acute respiratory failure with hypoxia Arthritis Atrial fibrillation with rapid ventricular response Bacteremia GERD (gastroesophageal reflux disease) Hepatic cyst Hip pain History of kidney stones Hypercholesterolemia Hypertension Left bundle branch block Multinodular thyroid Obesity Obstructive sleep apnea Paroxysmal atrial fibrillation Polycystic liver disease Scoliosis Thyroid cancer Thyroid enlargement Tubular adenoma of colon Vitamin D deficiency Surgical History History of appendectomy History of colonoscopy History of lithotripsy History of removal of cyst History of thyroidectomy Family History (Updated 02/05/23 @ 13:25 by Chen Koenig) Father Medical history unknown Mother Medical history unknown Social History Household Members: None Housing: House Do you presently have visiting nurse or other home services: No Alcohol intake: never Patient Tobacco Use Status: Never used Tobacco e-Cigarette/Vaping Use: Never Used Second Hand Smoke Exposure: No service: No Current occupational status: employed Cognitive needs: No Hearing needs: No Vision needs: Yes Questionnaire PHQ-9 Over the last 2 weeks, how often have you been bothered by any of the following problems? 1. Little interest or pleasure in doing things: not at all 2. Feeling down, depressed, or hopeless: not at all 3. Trouble falling or staying asleep, or sleeping too much: not at all 4. Feeling tired or having little energy: not at all 5. Poor appetite or overeating: not at all 6. Feeling bad about yourself - or that you are a failure or have let yourself or your family down: not at all 7. Trouble concentrating on things, such as reading the newspaper or watching television: not at all 8. Moving or speaking so slowly that other people could have noticed. Or the opposite - being so fidgety or restless that you have been moving around a lot more than usual: not at all 9. Thoughts that you would be better off or of hurting yourself in some way: not at all Total score: 0 Depression Screening Interpretation: Negative Source: Developed by Drs. Billy Sage, Ani Portillo, Rony Alvarez and colleagues, with an educational raymond from [employer]. Thrive Questionnaire Date Thrive assessed: 02/05/23 I am a: Patient What is your living situation today?: I have a steady place to live Within the past 12 months, did the food you bought not last and you didn't have the money to get more?: Never true Within the past 12 months, did you worry whether your food would run out before you got money to buy more?: Never true Do you have trouble paying for medicines?: No Do you have trouble getting transportation to medical appointments?: No Do you have trouble paying your heating and electricity bill?: No Do you have trouble taking care of your child, family member or friend?: No Do you have trouble with day-to-day activities such as bathing, preparing meals, shopping, managing finances, etc.?: No Are you currently unemployed and looking for a job?: No Are you interested in more education?: No AUDIT C Alcohol Use Questionnaire (AUDIT-C) 1. How often do you have a drink containing alcohol?: Never 2. How many drinks containing alcohol do you have on a typical day when you are drinking?: 1 or 2 (none) 3. How often do you have six or more drinks on one occasion?: Never Total Score: 0 SANNA-7 AMB Questionnaire SANNA-7 Date SANNA - 7 assessed: 02/05/23 Feeling nervous, anxious, or on edge: 0 = Not at all Not being able to stop or control worryin = Not at all Worrying too much about different things: 0 = Not at all Trouble relaxin = Not at all Being so restless that it is hard to sit still: 0 = Not at all Becoming easily annoyed or irritable: 0 = Not at all Feeling afraid as if something awful might happen: 0 = Not at all Total SANNA-7 score (0-4 normal; 5-9 mild; 10-14 moderate; 15-21 severe): 0 Source: Developed by Drs. Billy Sage, Ani Portillo, Rony Alvarez and colleagues, with an educational raymond from [employer]. Physical exam (Primary Care) Vital Signs: Last Vital Signs Pulse 66 02/05/23 13:20 BP 122/60 02/05/23 13:20 Pulse Ox 95 02/05/23 13:20 Oxygen Delivery Method Room Air 02/05/23 13:20 Care Plan Goal for BP management: Oral examination reveals that the posterior pharyngeal wall was mildly erythematous but otherwise no discharge noted no pus pockets. BMI result Body Mass Index 32.1 Tobacco/Smoking Status: Tobacco use Status Tobacco use date assessed 11/04/22 02/05/23 13:29 Patient Tobacco Use Status Never used Tobacco 02/05/23 13:29 e-Cigarette/Vaping Use Never Used 02/05/23 13:29 PHQ-9: PHQ-9 Score PHQ-9: Total score 0 02/05/23 13:29 Depression Screening Interpretation: Negative Thrive Assessment: Date of Thrive Assessment Date Thrive assessed 02/05/23 02/05/23 13:29 Const General: alert; No acute distress Eyes Conjunctivae: conjunctivae normal Resp Auscultation: clear to auscultation bilaterally Cardio Rate: regular rate Rhythm: regular rhythm GI Inspection: Yes normal to inspection Extrem General: Yes normal to inspection and No edema Assessment and Plan Assessment & Plan (1) Thyroid cancer: Comment: Status post thyroidectomy Dr. Franklin Code(s): C73 - Malignant neoplasm of thyroid gland Plan: Patient is being followed up by endocrinology. On thyroid medication for post surgical hypothyroid (2) PAF (paroxysmal atrial fibrillation): Code(s): I48.0 - Paroxysmal atrial fibrillation Plan: Continue with anticoagulation and rate controlled with diltiazem (3) Impaired glucose tolerance: Code(s): R73.02 - Impaired glucose tolerance (oral) Plan: Decrease the amount of carbohydrate intake, pasta, bread, rice and potatoes are all sugar and that is aside from all the sweet stuff, remember that fruits are good but they are Sweet also. (4) Hypertension: Code(s): I10 - Essential (primary) hypertension Qualifiers: Hypertension type: essential hypertension Qualified Code(s): I10 - Essential (primary) hypertension Plan: Continue with blood pressure medication. Decrease salt intake and exercise continue with diltiazem 120 mg once a day metoprolol 50 mg once a day (5) Obstructive sleep apnea: Comment: CPAP use Q night > 4 hours nbenefits Code(s): G47.33 - Obstructive sleep apnea (adult) (pediatric) Plan: Continue with CPAP more than 4 hours a night and benefits from this (6) Hypercholesterolemia: Code(s): E78.00 - Pure hypercholesterolemia, unspecified Plan: Avoid fried foods, chicken skin, eggs, butter margarine, pastries and meat. Be it pork or beef they have a lot of cholesterol LDL goal of less than 130 and triglyceride of less than 150 patient is on atorvastatin 10 mg once a day (7) Obesity: Code(s): E66.9 - Obesity, unspecified Qualifiers: Obesity type: due to excess calories Obesity classification: adult class 1 (BMI 30 - 34.9) Serious obesity comorbidity presence: without serious comorbidity Body mass index: BMI 30.0-30.9 Qualified Code(s): E66.09 - Other obesity due to excess calories; Z68.30 - Body mass index [BMI]30.0-30.9, adult Plan: Diet and exercise (8) GERD (gastroesophageal reflux disease): Code(s): K21.9 - Gastro-esophageal reflux disease without esophagitis Qualifiers: Esophagitis presence: without esophagitis Qualified Code(s): K21.9 - Gastro-esophageal reflux disease without esophagitis Plan: Avoid the foods that causes that usually spicy foods, tomato products, juices, coffee, soda and foods that your sensitive to. After eating do not lie down, allow 3-4 hours before in lie down. And keep the head of bed above 30 degrees to avoid the acid from going up. (9) Odynophagia: Code(s): R13.10 - Dysphagia, unspecified Medications: New nystatin swish and swallow 5 mL PO TID 7 days 105 mL 0RF R13.10 - Dysphagia, unspecified nystatin swish and swallow 5 mL PO TID 7 days 105 mL 0RF R13.10 - Dysphagia, unspecified Discontinued rivaroxaban 20 mg PO DAILY 90 days 90 tabs 3RF levothyroxine 175 mcg PO DAILY 30 tabs 3RF Coding Level of Care Code Est Pt Level 4 (67906) Diagnoses Thyroid cancer C73 PAF (paroxysmal atrial fibrillation) I48.0 Impaired glucose tolerance R73.02 Hypertension I10 Hypertension type: essential hypertension Obstructive sleep apnea G47.33 Hypercholesterolemia E78.00 Obesity E66.09; Z68.30 Obesity type: due to excess calories Obesity classification: adult class 1 (BMI 30 - 34.9) Serious obesity comorbidity presence: without serious comorbidity Body mass index: BMI 30.0-30.9 GERD (gastroesophageal reflux disease) K21.9 Esophagitis presence: without esophagitis Odynophagia R13.10
[2023-02-05 13:20] VITALS: BP 122/60; PULSE 66; O2SAT 95; BMI 32.1
== END 2023-02-05 14:06 | disposition home or self-care (01) ==
PROVIDERS: PCP Internal Medicine; Visit Provider Internal Medicine
DX: C73 Malignant neoplasm of thyroid gland (principal); I48.0 Paroxysmal atrial fibrillation; E66.09 Other obesity due to excess calories; Z68.30 Body mass index [BMI] 30.0-30.9, adult; I10 Essential (primary) hypertension; K21.9 Gastro-esophageal reflux disease without esophagitis; R73.02 Impaired glucose tolerance (oral); G47.33 Obstructive sleep apnea (adult) (pediatric); E78.00 Pure hypercholesterolemia, unspecified; R13.10 Dysphagia, unspecified
CPT/HCPCS: 99214

== ENCOUNTER 2023-03-05 13:50 | Outpatient (AMB) | payer BC, SELFPAY ==
[2023-03-05 14:09] VITALS: BP 120/74; PULSE 63; BMI 32.4
--- NOTE | 2023-03-05 14:09 | A.OFFVIS_ITS ---
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 Allergies No Known Allergies [No Known Allergies*] Allergy (Verified 03/05/23 14:18) Medication List - Last Reconciled 03/05/23 by Ashkan Rivera MD allopurinol 100 mg PO DAILY 90 days atorvastatin 10 mg PO DAILY 90 days diltiazem HCl (Cardizem CD) 120 mg PO DAILY levothyroxine 175 mcg PO DAILY@0600 metoprolol succinate ER 50 mg PO DAILY milk thistle 175 mg PO BID niacin 500 mg PO DAILY nystatin 5 mL PO TID 7 days fhlim-7a-lgs-epa-fish oil 300-1,000 mg (Carlton-3 Fish Oil) 1 cap PO DAILY potassium citrate ER 20 mEq PO BID rivaroxaban 20 mg PO DAILY HPI HPI Comments History of Present Illness Details 67-year-old gentleman here for follow-up . He was seen in February 2020 when he presented to us after admission at [facility]. He had chest pain and presented to [facility]. He underwent stress testing there which did not show any perfusion defect. His pain was reproducible and quite atypical. He has background of paroxysmal atrial flutter. He had rate-related left bundle-branch block when he had atrial fibrillation with rapid ventricular response. In sinus rhythm and when his heart rate is low the bundle-branch is not present. He is denying any chest pain or shortness of breath. No bleeding concerns. Blood pressure control is good. Taking medications regularly. 03/05/2023: He returns for follow-up. He has been experiencing some palpitations up to 2 times a day for the last 2 weeks. He is saying that this reminds him office AFib episodes previously. He has been taking medications regularly. No other complaints currently. EKG in the office is showing sinus rhythm. It appears he was admitted to [facility] in January 2023 when he was in AFib with RVR. He spontaneously converted to sinus rhythm in the hospital. [facility] Medical History (Updated 03/05/23 @ 14:31 by Ashkan Rivera MD) PAF (paroxysmal atrial fibrillation) Hepatic cyst Thyroid cancer Arthritis Vitamin D deficiency Multinodular thyroid Thyroid enlargement Acute respiratory failure with hypoxia Bacteremia Left bundle branch block Paroxysmal atrial fibrillation Atrial fibrillation with rapid ventricular response Scoliosis Hip pain Polycystic liver disease Tubular adenoma of colon Hypertension Obstructive sleep apnea History of kidney stones Hypercholesterolemia Obesity GERD (gastroesophageal reflux disease) Surgical History History of appendectomy History of colonoscopy History of lithotripsy History of removal of cyst History of thyroidectomy Family History Father Medical history unknown Mother Medical history unknown Social History Household Members: None Housing: House Do you presently have visiting nurse or other home services: No Alcohol intake: never Patient Tobacco Use Status: Never used Tobacco e-Cigarette/Vaping Use: Never Used Second Hand Smoke Exposure: No service: No Current occupational status: employed Cognitive needs: No Hearing needs: No Vision needs: Yes Review of Systems ENT Reports dizziness Card Denies chest pain, Denies chest pain at rest, Denies chest pain with activity, Denies rapid heart rate, Denies pedal edema, Denies edema, Denies leg edema, Denies lightheadedness, Denies palpitations, Denies dyspnea, Denies dyspnea on exertion and Denies orthopnea Resp Denies cough, Denies dyspnea and Denies dyspnea on exertion GI Denies hematochezia and Denies change in stool character Musc Denies abnormal gait, Reports limited range of motion, Reports muscle cramps, Denies muscle weakness, Denies numbness, Denies radiating pain into limb, Denies stiffness and Denies tingling Neuro Denies abnormal gait, Reports dizziness, Denies numbness and Denies tingling Endo Denies palpitations Physical Exam Vital Signs: Last Vital Signs Pulse 63 03/05/23 14:09 BP 120/74 03/05/23 14:09 BMI result Body Mass Index 32.4 GENERAL APPEARANCE: in no acute distress, pleasant. NECK: no carotid bruit, no jugular venous distention. Thyroidectomy scar. SKIN: no suspicious lesions, warm and dry. HEART: no murmurs, regular rate and rhythm. LUNGS: clear to auscultation bilaterally. ABDOMEN: soft, nontender. EXTREMITIES: Mild edema. PERIPHERAL PULSES: equal. NEUROLOGIC: No gross deficits, AAO X 3 Office Procedures EKG Details: Sinus rhythm 63 beats per minute, specific ST-T changes, QTC 444 milliseconds. [id number], Complete Assessment & Plan Assessment & Plan (1) Hypertension: Code(s): I10 - Essential (primary) hypertension Qualifiers: Hypertension type: essential hypertension Qualified Code(s): I10 - Essential (primary) hypertension (2) PAF (paroxysmal atrial fibrillation): Code(s): I48.0 - Paroxysmal atrial fibrillation Plan 67-year-old gentleman who is here for follow-up. He has background history of paroxysmal atrial fibrillation. He was admitted to [facility] with viral illness and AFib with RVR. He converted to sinus rhythm on his own. His amlodipine was stopped and changed to diltiazem. He is currently taking diltiazem 120 mg daily, metoprolol succinate 50 mg daily and rivaroxaban. ECG showing sinus rhythm currently. He is complaining of palpitations twice a day for the last 2 weeks. We will arrange a 7 day Holter monitor to see if he is developing atrial fibrillation or not. If he has significant atrial fibrillation then we may have to consider rhythm control medications. Thank you for allowing me to participate in the care of your patient. Please feel free to contact me if you have any questions. Orders: Orders ECG 7 day holter monitor Today I48.0 - Paroxysmal atrial fibrillation Coding Level of Care Code Est Pt Level 4 (18134) Diagnoses Essential hypertension I10 Hypertension type: essential hypertension PAF (paroxysmal atrial fibrillation) I48.0 CPT Codes EKG - CPT: 68964-[id number], Complete ([id number])
== END 2023-03-05 14:32 | disposition home or self-care (01) ==
PROVIDERS: PCP Internal Medicine; Referring Provider Internal Medicine; Visit Provider Internal Medicine Cardiovascular Disease
DX: I10 Essential (primary) hypertension (principal); I48.0 Paroxysmal atrial fibrillation
CPT/HCPCS: 93010; 99214

== ENCOUNTER → 2023-03-05 13:50 | Outpatient (BNVA) | payer BC, SELFPAY | PROVIDERS: PCP Internal Medicine; Referring Provider Internal Medicine; Visit Provider Internal Medicine Cardiovascular Disease | DX: I10 Essential (primary) hypertension (principal); I48.0 Paroxysmal atrial fibrillation; Z79.01 Long term (current) use of 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; Z79.899 Other long term (current) drug therapy | CPT/HCPCS: 93005 ==

== ENCOUNTER → 2023-03-10 08:51 | Outpatient (REF) | payer BC, SELFPAY ==
--- NOTE | 2023-03-10 08:56 | HM_ITS ---
* Total monitoring time 7 days. * Underlying rhythm is sinus. Average ventricular rate 68/Min. Range 49 to 108/Min. * Frequent premature ventricular contractions with a burden of 2.6%. Occasion couplets, bigeminy, trigeminy. One run of 3 beats. * Rare supraventricular ectopy. 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 * Fast heartbeat in patient diary correlates with sinus rhythm. MTDD
== END ==
LOC: HO.CARD 08:51
PROVIDERS: PCP Internal Medicine; Visit Provider Internal Medicine Cardiovascular Disease
DX: I48.0 Paroxysmal atrial fibrillation (principal)
CPT/HCPCS: 93242

== ENCOUNTER → 2023-03-10 08:56 | Outpatient (BNV) | payer BC, SELFPAY | PROVIDERS: PCP Internal Medicine; Visit Provider Internal Medicine | DX: I49.3 Ventricular premature depolarization (principal) | CPT/HCPCS: 93244 ==

== ENCOUNTER 2023-05-01 13:53 | Outpatient (AMB) | payer BC, SELFPAY ==
[2023-05-01 13:57] VITALS: BP 132/72; PULSE 72; O2SAT 97; BMI 32.4
--- NOTE | 2023-05-01 13:57 | MHC.PC.OV ---
Vital Signs 05/01/23 13:57 Height 6 ft 2 in Weight 252 lb BMI 32.4 BP 132/72 Blood Pressure Location Lt brachial Position Sitting Pulse 72 Pulse Source Pulse Oximeter Pulse Oximetry (%) 97 Oxygen Delivery Method Room Air Intake Visit Reasons: a fib swv Allergies No Known Allergies [No Known Allergies*] Allergy (Verified 05/01/23 13:57) Medication List - Last Reconciled 05/01/23 by Bhakti Reyes MD allopurinol 100 mg PO DAILY 90 days atorvastatin 10 mg PO DAILY 90 days diltiazem HCl (Cardizem CD) 120 mg PO DAILY levothyroxine 175 mcg PO DAILY@0600 metoprolol succinate ER 50 mg PO DAILY milk thistle 175 mg PO BID niacin 500 mg PO DAILY nystatin 5 mL PO TID 7 days [id number]-epa-fish oil 300-1,000 mg ([place]-3 Fish Oil) 1 cap PO DAILY potassium citrate ER 20 mEq PO BID rivaroxaban 20 mg PO DAILY Tobacco use date assessed: 11/04/22 Fall risk assessment: No Falls in past year Last assessed Fall Risk: 05/01/23 Dental Screening Dental Screen Date: 05/01/23 Did you have a dental visit in the last 12 months?: Yes Did you have a dental problem in the last 6 months where you did not have access to dental care?: No Was dental information given to patient?: Patient has dentist HPI a fib swv HPI Details 68-year-old obese male with a history of thyroid cancer being followed up by the Endocrinology has atrial fibrillation impaired glucose tolerance hypertension obstructive sleep apnea hypercholesterolemia and GERD last seen in January 2023. Patient's colonoscopy is up-to-date January 2022 noted recent Holter February 2023Total monitoring time 7 days. Underlying rhythm is sinus. Average ventricular rate 68/Min. Range 49 to 108/Min. Frequent premature ventricular contractions with a burden of 2.6%. Occasion couplets, bigeminy, trigeminy. One run of 3 beats. Rare supraventricular ectopy. 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 Fast heartbeat in patient diary correlates with sinus rhythm. Patient follows up with Cardiology continuing with anticoagulation on diltiazem and metoprolol had face surgery skin cancer NEDERM 02/2023 [facility] Medical History (Updated 03/05/23 @ 14:31 by Ashkan Rivera MD) PAF (paroxysmal atrial fibrillation) Hepatic cyst Thyroid cancer Arthritis Vitamin D deficiency Multinodular thyroid Thyroid enlargement Acute respiratory failure with hypoxia Bacteremia Left bundle branch block Paroxysmal atrial fibrillation Atrial fibrillation with rapid ventricular response Scoliosis Hip pain Polycystic liver disease Tubular adenoma of colon Hypertension Obstructive sleep apnea History of kidney stones Hypercholesterolemia Obesity GERD (gastroesophageal reflux disease) Surgical History History of appendectomy History of colonoscopy History of lithotripsy History of removal of cyst History of thyroidectomy Family History Father Medical history unknown Mother Medical history unknown Social History Household Members: None Housing: House Do you presently have visiting nurse or other home services: No Alcohol intake: never Patient Tobacco Use Status: Never used Tobacco e-Cigarette/Vaping Use: Never Used Second Hand Smoke Exposure: No service: No Current occupational status: employed Cognitive needs: No Hearing needs: No Vision needs: Yes Questionnaire PHQ-9 Over the last 2 weeks, how often have you been bothered by any of the following problems? 1. Little interest or pleasure in doing things: not at all 2. Feeling down, depressed, or hopeless: not at all 3. Trouble falling or staying asleep, or sleeping too much: not at all 4. Feeling tired or having little energy: not at all 5. Poor appetite or overeating: not at all 6. Feeling bad about yourself - or that you are a failure or have let yourself or your family down: not at all 7. Trouble concentrating on things, such as reading the newspaper or watching television: not at all 8. Moving or speaking so slowly that other people could have noticed. Or the opposite - being so fidgety or restless that you have been moving around a lot more than usual: not at all 9. Thoughts that you would be better off or of hurting yourself in some way: not at all Total score: 0 Depression Screening Interpretation: Negative Depression Screening Done: Yes Source: Developed by Drs. Billy Sage, Ani Portillo, Rony Alvarez and colleagues, with an educational raymond from [employer]. Thrive Questionnaire Date Thrive assessed: 02/05/23 AUDIT C Alcohol Use Questionnaire (AUDIT-C) 1. How often do you have a drink containing alcohol?: Never 2. How many drinks containing alcohol do you have on a typical day when you are drinking?: 1 or 2 (none) 3. How often do you have six or more drinks on one occasion?: Never Total Score: 0 SANNA-7 AMB Questionnaire SANNA-7 Date SANNA - 7 assessed: 02/05/23 Source: Developed by Drs. Billy Sage, Ani Portillo, Rony Alvarez and colleagues, with an educational raymond from [employer]. Review of Systems Const Denies poor appetite and Denies weakness Eyes Denies no additional complaints ENT Reports Normal hearing present, Denies dizziness, Denies nasal congestion, Denies tinnitus and Denies sore throat Card Denies chest pain, Denies syncope, Denies rapid heart rate and Denies dyspnea Resp Denies cough and Denies dyspnea GI Denies change in stool character, Reports constipation, Denies diarrhea, Denies nausea and Denies vomiting Denies dysuria and Denies urinary frequency Neuro Reports Normal hearing present, Denies confusion, Denies dizziness, Denies syncope and Denies weakness Psych Denies confusion Physical exam (Primary Care) Vital Signs: Last Vital Signs Pulse 72 05/01/23 13:57 BP 132/72 05/01/23 13:57 Pulse Ox 97 05/01/23 13:57 Oxygen Delivery Method Room Air 05/01/23 13:57 BMI result Body Mass Index 32.4 Tobacco/Smoking Status: Tobacco use Status Tobacco use date assessed 11/04/22 05/01/23 13:58 Patient Tobacco Use Status Never used Tobacco 05/01/23 13:58 e-Cigarette/Vaping Use Never Used 05/01/23 13:58 PHQ-9: PHQ-9 Score PHQ-9: Total score 0 05/01/23 14:12 Depression Screening Interpretation: Negative Thrive Assessment: Date of Thrive Assessment Date Thrive assessed 02/05/23 05/01/23 13:58 Const General: No confusion Orientation/consciousness: No confusion HENMT Head: Yes normocephalic Ears: external ears normal and TM's normal bilaterally Face and sinus: Yes normal facial exam Mouth: moist mucous membranes Throat: Yes tonsils normal Eyes Conjunctivae: conjunctivae normal Pupils: Equal, round and reactive pupils present and Pupil accommodation reflex normal Direct Ophthalmoscopy: normal light reflex Neck Neck: No lymphadenopathy Thyroid: Thyroid normal Chest Chest palpation & inspection: normal inspection of the chest Resp Effort & Inspection: normal respiratory effort and no audible wheezes Auscultation: clear to auscultation bilaterally, no crackles, no wheezes and lung sounds not diminished Cardio Rate: regular rate Rhythm: regular rhythm Peripheral pulses: radial pulses present and dorsalis pedis present GI Palpation (GI): no masses Auscultation: normal bowel sounds and normoactive bowel sounds Rectal Exam - Male: Yes deferred Skin General skin exam: no rashes or lesions noted Rashes: no rashes Neuro General: No confusion Cranial nerves: Yes Equal, round and reactive pupils present and Yes Normal hearing present Cognition (Neuro): normal cognition Gait exam (Neuro): Normal gait present Motor exam (neuro): 5/5 motor strength present throughout Deep tendon reflexes (DTR's): Right brachioradialis reflex intensity grade: 2+, Left brachioradialis reflex intensity grade: 2+, Right patellar reflex intensity grade: 2+ and Left patellar reflex intensity grade: 2+ Extrem General: No edema Assessment and Plan Assessment & Plan (1) PAF (paroxysmal atrial fibrillation): Code(s): I48.0 - Paroxysmal atrial fibrillation Plan: Continue with anticoagulation with Xarelto once a day (2) Thyroid cancer: Comment: Status post thyroidectomy Dr. Franklin Code(s): C73 - Malignant neoplasm of thyroid gland (3) Hypertension: Code(s): I10 - Essential (primary) hypertension Qualifiers: Hypertension type: essential hypertension Qualified Code(s): I10 - Essential (primary) hypertension Plan: Continue with blood pressure medication. Decrease salt intake and exercise patient is on metoprolol 50 mg once a day diltiazem 120 mg once a day (4) Obstructive sleep apnea: Comment: CPAP use Q night > 4 hours nbenefits Code(s): G47.33 - Obstructive sleep apnea (adult) (pediatric) Plan: Continue to use the CPAP more than 4 hours a night and benefits from this (5) Hypercholesterolemia: Code(s): E78.00 - Pure hypercholesterolemia, unspecified Plan: Avoid fried foods, chicken skin, eggs, butter margarine, pastries and meat. Be it pork or beef they have a lot of cholesterol LDL goal of less than 100 and triglyceride of less than 150 patient on atorvastatin 10 mg once a day (6) Obesity: Code(s): E66.9 - Obesity, unspecified Qualifiers: Body mass index: BMI 30.0-30.9 Obesity classification: adult class 1 (BMI 30 - 34.9) Obesity type: due to excess calories Serious obesity comorbidity presence: without serious comorbidity Qualified Code(s): E66.09 - Other obesity due to excess calories; Z68.30 - Body mass index [BMI]30.0-30.9, adult Plan: Diet and exercise (7) GERD (gastroesophageal reflux disease): Code(s): K21.9 - Gastro-esophageal reflux disease without esophagitis Qualifiers: Esophagitis presence: without esophagitis Qualified Code(s): K21.9 - Gastro-esophageal reflux disease without esophagitis Plan: Avoid the foods that causes that usually spicy foods, tomato products, juices, coffee, soda and foods that your sensitive to. After eating do not lie down, allow 3-4 hours before in lie down. And keep the head of bed above 30 degrees to avoid the acid from going up. Orders: Orders Complete Blood Count Auto Diff Today I48.0 - Paroxysmal atrial fibrillation Thyroid Stimulating Hormone Today I48.0 - Paroxysmal atrial fibrillation Comprehensive Met. Panel Today I48.0 - Paroxysmal atrial fibrillation Free T4 (Free Thyroxine) Today I48.0 - Paroxysmal atrial fibrillation Coding Level of Care Code Est Pt Level 4 (64011) Diagnoses PAF (paroxysmal atrial fibrillation) I48.0 Thyroid cancer C73 Essential hypertension I10 Hypertension type: essential hypertension Obstructive sleep apnea G47.33 Hypercholesterolemia E78.00 Class 1 obesity due to excess calories without serious comorbidity with body mass index (BMI) of 30.0 to 30.9 in adult E66.09; Z68.30 Body mass index: BMI 30.0-30.9 Obesity classification: adult class 1 (BMI 30 - 34.9) Obesity type: due to excess calories Serious obesity comorbidity presence: without serious comorbidity Gastroesophageal reflux disease without esophagitis K21.9 Esophagitis presence: without esophagitis
== END 2023-05-01 14:27 | disposition home or self-care (01) ==
PROVIDERS: Visit Provider Internal Medicine
DX: I48.0 Paroxysmal atrial fibrillation (principal); C73 Malignant neoplasm of thyroid gland; I10 Essential (primary) hypertension; G47.33 Obstructive sleep apnea (adult) (pediatric); E78.00 Pure hypercholesterolemia, unspecified; E66.09 Other obesity due to excess calories; Z68.30 Body mass index [BMI] 30.0-30.9, adult; K21.9 Gastro-esophageal reflux disease without esophagitis
CPT/HCPCS: 99214

== ENCOUNTER 2023-05-01 14:31 | Outpatient (REF) | payer BC, SELFPAY ==
[2023-05-01 14:49] LABS: MANUAL DIFF FLAG NO
[2023-05-01 15:15] LABS: Basophils Percent Auto 0.8 % (0-2); Eosinophils Absolute Auto 0.2 X10*3/uL (0.0-0.4); Eosinophils Percent Auto 3.4 % (0-4); Hematocrit 42.4 % (42.0-52.0); Hemoglobin 14.1 g/dl (14.0-18.0); Imm Gran Abs Auto 0.03 X10*3/uL (0.00-0.03); Imm Gran Pct Auto 0.6 % (0.0-0.4); Lymphocytes Absolute Auto 0.9 X10*3/uL (1.2-4.9); Lymphocytes Percent Auto 18.4 % (20-40); Mean Corpuscular HGB Conc 33.3 g/dl (31.0-36.0); Mean Corpuscular Volume 90.2 fL (80.0-98.0); Mean Platelet Volume 9.2 fL (9.4-12.4); Monocytes Absolute Auto 0.5 X10*3/uL (0.1-1.2); Monocytes Percent Auto 10.4 % (2-11); Neutrophils Absolute Auto 3.1 x10*3/uL (2.0-8.3); Neutrophils Percent Auto 66.4 % (45-73); Platelet Count 204 X10*3/uL (160-400); Red Cell Distribution Width 13.5 % (11.0-16.0); White Blood Count 4.7 X10*3/uL (4.8-10.8)
[2023-05-01 15:44] LABS: Alanine Aminotransferase 25 U/L (0-40); Albumin Level 3.9 g/dL (3.5-5.0); Alkaline Phosphatase 84 U/L (39-117); Anion Gap 12 (12-20); Aspartate Amino Transferase 17 U/L (5-37); Bilirubin Total 0.8 mg/dL (0.0-1.0); Blood Urea Nitrogen 17 mg/dL (9-16); Calcium 9.2 mg/dL (8.4-10.2); Carbon Dioxide 28 mmol/L (22-29); Chloride 109 mmol/L (96-108); Estimated Glomerular Filt Rate > 60; Glucose Random 90 mg/dL (60-115); Potassium 4.6 mmol/L (3.3-5.1); Sodium 144 mmol/L (135-145); Total Protein 6.7 g/dL (6.5-8.0)
[2023-05-01 16:02] LABS: Free T4 (Free Thyroxine) 1.28 ng/dL (0.71-1.85); Thyroid Stimulating Hormone 0.02 uIU/mL (0.32-4.0)
== END 2023-05-01 14:32 | disposition home or self-care (01) ==
LOC: HO.LAB 14:31
PROVIDERS: PCP Internal Medicine; Visit Provider Internal Medicine
DX: I48.0 Paroxysmal atrial fibrillation (principal)
CPT/HCPCS: 36415; 80053; 84439; 84443; 85025

== ENCOUNTER 2023-05-22 14:22 | Outpatient (REF) | payer BC, SELFPAY ==
--- NOTE | ~2023-05-22 | US_ITS ---
EXAMINATION: US RETROPERITONEAL LIMITED (RENAL ONLY) CLINICAL INFORMATION: Calculus of kidney. COMPARISON: Ultrasound abdomen complete 11/28/2022. TECHNIQUE: Real-time imaging of the kidneys. FINDINGS: RIGHT KIDNEY: 12.4 x 4.5 x 4.0 cm (SAG x AP x TRV). The kidney is normal in size, contour, and echogenicity. Renal cortical thickness is normal. No hydronephrosis. Benign-appearing renal cyst measuring 1.4 cm. No follow up imaging is recommended. 3 nonobstructing renal stones increased in number from prior measuring up to 4 mm, previously 3 mm. LEFT KIDNEY: 10.9 x 6.0 x 5.8 cm (SAG x AP x TRV). The kidney is normal in size, contour, and echogenicity. Renal cortical thickness is normal. No focal parenchymal lesions or hydronephrosis. 6 mm nonobstructing left midpole renal stone previously 5 mm and a 5 mm nonobstructing lower pole renal stone previously 9 mm. A previously seen upper pole renal stone is no longer identified. US/US renal BI IMPRESSION: Bilateral nonobstructing renal stones as detailed above measuring up to 6 mm, some new from prior, some no longer seen and some increased and some decreased in size.
== END 2023-05-22 14:23 | disposition home or self-care (01) ==
LOC: HO.HMGCX 14:22
PROVIDERS: PCP Internal Medicine; Visit Provider Urology
DX: N20.0 Calculus of kidney (principal)
CPT/HCPCS: 76775

== ENCOUNTER 2023-06-04 11:04 | Outpatient (AMB) | payer BC, SELFPAY ==
--- NOTE | 2023-06-04 11:43 | A.OFFVIS_ITS ---
Intake Intake Visit Reasons: 1Y US(set) Intake Note: Patient is Present for Follow Up US Urology Medication: Xarelto Antibiotic Allergies: None Blood Thinners: None Allergies No Known Allergies [No Known Allergies*] Allergy (Verified 06/04/23 11:44) Medication List - Last Reconciled 06/04/23 by Derek Darden MD allopurinol 100 mg PO DAILY 90 days atorvastatin 10 mg PO DAILY 90 days diltiazem HCl (Cardizem CD) 120 mg PO DAILY levothyroxine 175 mcg PO DAILY@0600 metoprolol succinate ER 50 mg PO DAILY milk thistle 175 mg PO BID niacin 500 mg PO DAILY nystatin 5 mL PO TID 7 days ipkfc-[id number]-wii-epa-fish oil 300-1,000 mg ([place]-3 Fish Oil) 1 cap PO DAILY potassium citrate ER 20 mEq PO BID rivaroxaban 20 mg PO DAILY HPI HPI Comments History of Present Illness Details Carlos is a pleasant male. He is seen for following urologic issues - renal stones Discussed imaging results Small stone bilateral small cyst Decreased stone burden Continue citrate Nephrolithiasis Current consultation for further evaluation of nephrolithiasis Imaging - 01/10 CT scan with left distal stone, b ilateral scattered stones maximum 3 mm on right - 05/13 renal ultrasound bilateral 3 mm stone - 12/12 renal ultrasound 4 mm left stone - 06/13 renal ultrasound 3 mm bilateral stone - 06/14 renal ultrasound bilateral 4-5 m m stones to each side. Renal intervention - 02/10 left ureteroscopy laser lithotrip sy stent placement Stone analysis - prior calcium oxalate Therapy - fluid intake - 2 times a day 20 mEq citrate PFSH Medical History (Updated 03/05/23 @ 14:31 by Ashkan Rivera MD) PAF (paroxysmal atrial fibrillation) Hepatic cyst Thyroid cancer Arthritis Vitamin D deficiency Multinodular thyroid Thyroid enlargement Acute respiratory failure with hypoxia Bacteremia Left bundle branch block Paroxysmal atrial fibrillation Atrial fibrillation with rapid ventricular response Scoliosis Hip pain Polycystic liver disease Tubular adenoma of colon Hypertension Obstructive sleep apnea History of kidney stones Hypercholesterolemia Obesity GERD (gastroesophageal reflux disease) Surgical History History of appendectomy History of colonoscopy History of lithotripsy History of removal of cyst History of thyroidectomy Family History Father Medical history unknown Mother Medical history unknown Social History Household Members: None Housing: House Do you presently have visiting nurse or other home services: No Alcohol intake: never Comment: HX SCOLIOSIS, FALL OUTSIDE 2 MONTHS AGO Patient Tobacco Use Status: Never used Tobacco e-Cigarette/Vaping Use: Never Used Second Hand Smoke Exposure: No service: No Current occupational status: employed Cognitive needs: No Hearing needs: No Vision needs: Yes Review of Systems Const Denies chills and Denies fever(s) Card Reports no additional complaints and Denies syncope Resp Denies cough GI Denies abdominal pain and Denies heartburn Reports as per HPI and Denies change in libido Neuro Denies syncope Psych Denies change in libido Endo Denies change in libido Physical Exam Const General: cooperative, healthy appearing, comfortable and no acute distress Orientation/consciousness: patient oriented x3 HEENT Face and sinus: Yes normal facial exam Mouth: moist mucous membranes Neck Neck: Yes normal visual inspection, Yes full ROM and Yes trachea midline Chest Chest palpation & inspection: normal inspection of the chest Resp Effort & Inspection: normal respiratory effort, able to speak in complete sentences and no respiratory distress GI Inspection: Yes normal to inspection Back/Spine/Pelvis Cervical Spine: normal cervical lordosis Thoracic/Lumbar Spine: thoracic and lumbar spine normal to inspection Skin General skin exam: no rashes or lesions noted Neuro General: patient oriented x3, gait normal, tone normal and moves all extremities Extrem General: Yes normal to inspection and Yes capillary refill normal Assessment & Plan Assessment & Plan (1) Nephrolithiasis: Code(s): N20.0 - Calculus of kidney Plan 12 month follow-up imaging Orders: Orders XR KUB 06/04/23 N20.0 - Calculus of kidney Patient Instructions: Imaging studies, laboratory and physical exam results were discussed and reviewed in detail. No major barriers to patient understanding were identified. An opportunity to ask questions regarding the treatment plan was provided. All questions were answered. The patient expressed understanding and agreement with the above treatment plan. The patient is aware they should contact our office by phone for worsening of their current condition or the appearance of new urologic symptoms. Compliance is encouraged with any medications and followup testing that is ordered. It is a privilege to participate in the urologic care of your patient. If you have any questions or concerns regarding treatment for the above conditions, or other urologic issues, please do not hesitate to contact me. The office telephone contact is [phone]. This note is constructed using voice recognition software. While every effort has been made to ensure accuracy electrical panel builder errors may have been included. Yours sincerely, Dr Derek Darden MD, [facility] - Urology Providers of Expert, Compassionate Care for the Genitourinary System Coding Level of Care Code Est Pt Level 4 (37072) Diagnoses Nephrolithiasis N20.0
== END 2023-06-04 12:31 | disposition home or self-care (01) ==
PROVIDERS: Visit Provider Urology
DX: N20.0 Calculus of kidney (principal)
CPT/HCPCS: 99213

== ENCOUNTER 2023-06-04 11:04 | Outpatient (REF) | payer BC, SELFPAY ==
--- NOTE | ~2023-06-04 | XR_ITS ---
EXAMINATION: XR ABDOMEN KUB CLINICAL INDICATION: Calculus of kidney. COMPARISON: 05/22/2023 renal ultrasound. TECHNIQUE: 3 AP views of the abdomen. FINDINGS: S-shaped thoracolumbar scoliosis with multilevel degenerative changes. Nonobstructive bowel gas pattern. Moderate amount of stool in the colon. Small rounded pelvic calcifications are likely vascular. Calcifications measuring up to 4 mm overlying the [id number] pole of the right kidney. 2-4 mm calcifications overlie the left kidney. Evaluation limited due to overlying bowel. Surgical clips along the far lateral aspect of the right abdomen. XR/XR KUB IMPRESSION: Bilateral renal calculi measuring up to 4 mm on the right and 2 to 4 mm on the left.
== END 2023-06-04 11:05 | disposition home or self-care (01) ==
LOC: HO.XRAY 11:04
PROVIDERS: PCP Internal Medicine; Visit Provider Urology
DX: N20.0 Calculus of kidney (principal)
CPT/HCPCS: 74018

== ENCOUNTER 2023-07-02 12:33 | Outpatient (AMB) | payer BC, SELFPAY ==
--- NOTE | 2023-07-02 12:50 | MHC.OFFVIS ---
Intake Vital Signs 07/02/23 12:51 Height 6 ft 2 in Weight 249 lb 5.485 oz BMI 32.0 BP 134/60 Blood Pressure Location Lt brachial Position Sitting Pulse 79 Pulse Source Pulse Oximeter Intake Visit Reasons: F/U Thyroid Cancer-CONFIRMED Intake Note: Previous patient of Dr. Grande present today for Thyroid cancer follow up visit. Pricing Supervisor Required: No Accompanied by: Self / Same As Patient Allergies No Known Allergies [No Known Allergies*] Allergy (Verified 07/02/23 12:56) Medication List - Last Reconciled 07/02/23 by Billy Bernardo MD allopurinol 100 mg PO DAILY 90 days atorvastatin 10 mg PO DAILY 90 days diltiazem HCl (Cardizem CD) 120 mg PO DAILY levothyroxine 175 mcg PO DAILY@0600 metoprolol succinate ER 50 mg PO DAILY milk thistle 175 mg PO BID niacin 500 mg PO DAILY nystatin 5 mL PO TID 7 days [id number]-fish oil 300-1,000 mg ([place]-3 Fish Oil) 1 cap PO DAILY potassium citrate ER 20 mEq PO BID rivaroxaban 20 mg PO DAILY HPI HPI Comments History of Present Illness Details 68 YO M with PMHx recent PE due to COVID-19 infection now on xarelto, who is seen in F/U for thyroid cancer. Was initially diagnosed with multinodular thyroid over 20 years ago at the [facility] [place]. He states he had a R hemithyroidectomy due to a toxic nodule, and reports no cancer was identified. He has remained euthyroid off any thyroid hormone supplementation since that time. His PCP ordered a thyroid US in 2021 which revealed a 1.5 cm LMP thyroid nodule. He was subsequently referred to Endocrinology. 02/14/2022 he underwent FNA biopsy of his LMP 1.5 cm thyroid nodule with cytology Suspicious for malignancy (bethesda category V). He was referred for a completion thyroidectomy and underwent this 05/10/2022. 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 There was no lymphatic invasion, no angioinvasion and no perineural invasion. There was macroscopic extrathyroidal extension identified as the tumor was invading the strap muscles. There was also a positive posterior margin. He received I131 treatment with 152 mCi 08/21/2022 via withdrawal method. Labs 08/19/2022 TSH 62.8, TG <0.4 and TGAB 185. Post-treatment WBS revealed foci of radioiodine uptake in the bilateral thyroid bed. There was also increased radiotracer uptake within multiple hepatic cysts in the right and left hepatic lobes that was thought to be passive diffusion. These appeared unchanged from a prior CT. He remains on levothyroxine 175 mcg PO daily now. Labs 07/02/2022 with TSH <0.05, TG <0.1 and TGAB 368. TSH remains at goal. He reports feeling well and has no complaints today. Labs: Laboratory Tests 11/12/22 15:29 TSH 0.01 L Free T4 1.51 [facility] Medical History (Updated 03/05/23 @ 14:31 by Ashkan Rivera MD) PAF (paroxysmal atrial fibrillation) Hepatic cyst Thyroid cancer Arthritis Vitamin D deficiency Multinodular thyroid Thyroid enlargement Acute respiratory failure with hypoxia Bacteremia Left bundle branch block Paroxysmal atrial fibrillation Atrial fibrillation with rapid ventricular response Scoliosis Hip pain Polycystic liver disease Tubular adenoma of colon Hypertension Obstructive sleep apnea History of kidney stones Hypercholesterolemia Obesity GERD (gastroesophageal reflux disease) Surgical History History of appendectomy History of colonoscopy History of lithotripsy History of removal of cyst History of thyroidectomy Family History Father Medical history unknown Mother Medical history unknown Social History Household Members: None Housing: House Do you presently have visiting nurse or other home services: No Alcohol intake: never Comment: HX SCOLIOSIS, FALL OUTSIDE 2 MONTHS AGO Patient Tobacco Use Status: Never used Tobacco e-Cigarette/Vaping Use: Never Used Second Hand Smoke Exposure: No service: No Current occupational status: employed Cognitive needs: No Hearing needs: No Vision needs: Yes Physical Exam Vital Signs: Last Vital Signs Pulse 79 07/02/23 12:51 BP 134/60 07/02/23 12:51 BMI result Body Mass Index 32.0 Const Other: Healed scar status post thyroidectomy. There is no cervical adenopathy palpated Assessment & Plan Assessment & Plan (1) Thyroid cancer: Comment: Status post thyroidectomy Dr. Franklin Code(s): C73 - Malignant neoplasm of thyroid gland Plan: This is a 68-year-old white male with a history of papillary thyroid cancer status post total thyroidectomy 05/10/2022 with path showed papillary thyroid carcinoma, conventional type, multifocal, 1.8 cm and 1.3 cm respectively. There was no lymphatic invasion, no angioinvasion and no perineural invasion. There was macroscopic extrathyroidal extension identified as the tumor was invading the strap muscles. There was also a positive posterior margin. He received I131 treatment with 152 mCi 08/21/2022 via withdrawal method. Labs 08/19/2022 TSH 62.8, TG <0.4 and TGAB 185. Post-treatment WBS revealed foci of radioiodine uptake in the bilateral thyroid bed. There was also increased radiotracer uptake within multiple hepatic cysts in the right and left hepatic lobes that was thought to be passive diffusion. These appeared unchanged from a prior CT. He is currently on 175 mcg levothyroxine with undetectable TSH. Plan is to recheck TSH, free T4 and thyroglobulin. . Considering patient's presentation and positive thyroglobulin antibodies, referral to a tertiary center might be necessary I will talk to the patient about being referred to Dr. Renetta Amaral at at [facility] who might have some further recommendations regarding cross-sectional imaging or performing a neck ultrasound. Depending upon the above, we could then re-stage the patient and determine proper TSH suppression. Orders: Orders Thyroglobulin Tumor Marker 07/01/23 C73 - Malignant neoplasm of thyroid gland Thyroid Stimulating Hormone 07/01/23 C73 - Malignant neoplasm of thyroid gland Free T4 (Free Thyroxine) 07/01/23 C73 - Malignant neoplasm of thyroid gland Referrals Endocrinology Referral C73 - Malignant neoplasm of thyroid gland Coding Level of Care Code Est Pt Level 3 (29082) Diagnoses Thyroid cancer C73
[2023-07-02 12:51] VITALS: BP 134/60; PULSE 79; BMI 32.0
== END 2023-07-02 13:49 | disposition home or self-care (01) ==
PROVIDERS: PCP Internal Medicine; Visit Provider Internal Medicine Endocrinology, Diabetes & Metabolism
DX: C73 Malignant neoplasm of thyroid gland (principal)
CPT/HCPCS: 99213

== ENCOUNTER 2023-07-02 12:33 | Outpatient (REF) | payer BC, SELFPAY ==
[2023-07-02 15:24] LABS: Free T4 (Free Thyroxine) 1.59 ng/dL (0.71-1.85); Thyroid Stimulating Hormone 0.01 uIU/mL (0.32-4.0)
[2023-07-10 08:48] LABS: Thyroglobulin Antibody 34 IU/mL (<=1); Thyroglobulin LC/MS/MS <0.4 ng/mL (Athyrotic: <0)
== END 2023-07-02 12:34 | disposition home or self-care (01) ==
LOC: HO.LAB 12:33
PROVIDERS: PCP Internal Medicine; Visit Provider Internal Medicine Endocrinology, Diabetes & Metabolism
DX: C73 Malignant neoplasm of thyroid gland (principal)
CPT/HCPCS: 36415; 84432; 84439; 84443; 86800

== ENCOUNTER 2023-07-29 12:53 | Outpatient (AMB) | payer BC, SELFPAY ==
[2023-07-29 13:43] VITALS: BP 120/60; PULSE 61; BMI 32.2
--- NOTE | 2023-07-29 13:43 | A.OFFVIS_ITS ---
Intake Vital Signs 07/29/23 13:43 Height 6 ft 2 in Weight 250 lb 7.122 oz BMI 32.2 BP 120/60 Blood Pressure Location Lt brachial Position Sitting Pulse 61 Pulse Source Pulse Oximeter Intake Visit Reasons: 3 mth fu after holter Intake Note: pt its here for a 3mnth after holter pt state that gets tired a lot and felt his heart rise that last couple of second. Teacher Education Instructor Required: No Accompanied by: Self / Same As Patient Allergies No Known Allergies [No Known Allergies*] Allergy (Verified 07/02/23 12:56) HPI HPI Comments History of Present Illness Details 68-year-ol male presents today for a fol low-up after having a holter monitor. He states he still gets fast heart rates / palpitations at rest. His holter showed frequent PVCs with a burden of 2.6% with occasional cuplets, bigeminy, trigeminy and one 3 beat run. He states he is compliant with his medications. He reports he does drink coffee in the morning and drinks a decent amount of tea. He has a history of GLENN and uses his CPAP regularly. He recently had his levothyroxine adjusted in the last two weeks. [facility] Medical History PAF (paroxysmal atrial fibrillation) Hepatic cyst Thyroid cancer Arthritis Vitamin D deficiency Multinodular thyroid Thyroid enlargement Acute respiratory failure with hypoxia Bacteremia Left bundle branch block Paroxysmal atrial fibrillation Atrial fibrillation with rapid ventricular response Scoliosis Hip pain Polycystic liver disease Tubular adenoma of colon Hypertension Obstructive sleep apnea History of kidney stones Hypercholesterolemia Obesity GERD (gastroesophageal reflux disease) Surgical History History of appendectomy History of colonoscopy History of lithotripsy History of removal of cyst History of thyroidectomy Family History Father Medical history unknown Mother Medical history unknown Social History Household Members: None Housing: House Do you presently have visiting nurse or other home services: No Alcohol intake: never Comment: HX SCOLIOSIS, FALL OUTSIDE 2 MONTHS AGO Patient Tobacco Use Status: Never used Tobacco e-Cigarette/Vaping Use: Never Used Second Hand Smoke Exposure: No service: No Current occupational status: employed Cognitive needs: No Hearing needs: No Vision needs: Yes Review of Systems Const Denies chills, Denies fatigue, Denies fever(s), Denies frequent falls, Denies weakness, Denies weight gain and Denies weight loss ENT Denies dizziness Card Denies chest pain, Denies leg edema, Denies lightheadedness, Denies palpitations, Denies dyspnea and Denies dyspnea on exertion Resp Denies cough, Denies dyspnea and Denies dyspnea on exertion GI Denies hematochezia Musc Denies abnormal gait, Denies muscle weakness, Denies numbness, Denies radiating pain into limb and Denies tingling Neuro Denies abnormal gait, Denies dizziness, Denies frequent falls, Denies numbness, Denies tingling and Denies weakness Endo Denies fatigue and Denies palpitations Physical Exam Vital Signs: Last Vital Signs Pulse 61 07/29/23 13:43 BP 120/60 07/29/23 13:43 BMI result Body Mass Index 32.2 Const General: healthy appearing and no acute distress Orientation/consciousness: patient oriented x3 HEENT Head: Yes normal to inspection Eyes General: appearance normal, both eyes and all related structures Neck Neck: Yes normal visual inspection Chest Chest palpation & inspection: normal inspection of the chest Resp Effort & Inspection: normal respiratory effort Auscultation: clear to auscultation bilaterally Cardio Jugular venous distension: no JVD Palpation: normal PMI Rate: regular rate Rhythm: regular rhythm Heart sounds: S1 normal heart sound present, S2 normal heart sound present, no click, no gallops, no murmurs and no rubs GI Inspection: Yes normal to inspection Palpation (GI): Soft to palpation Skin General skin exam: no rashes or lesions noted Neuro General: patient oriented x3 Extrem General: Yes normal to inspection Psych Appearance: grossly normal Results Reviewed Results Reviewed: 7 day holter 03/10/23 * Underlying rhythm is sinus. Average ventricular rate 68/Min. Range 49 to 108/Min. * Frequent premature ventricular contractions with a burden of 2.6%. Occasion couplets, bigeminy, trigeminy. One run of 3 beats. * Rare supraventricular ectopy. * Possible AV dissociation/complete heart block with an escape rate of 50 during rn hyperbaric hours. * Fast heartbeat in patient diary correlates with sinus rhythm. Assessment & Plan Assessment & Plan (1) PAF (paroxysmal atrial fibrillation): Code(s): I48.0 - Paroxysmal atrial fibrillation (2) PVCs (premature ventricular contractions): Code(s): I49.3 - Ventricular premature depolarization (3) Obstructive sleep apnea: Comment: CPAP use Q night > 4 hours nbenefits Code(s): G47.33 - Obstructive sleep apnea (adult) (pediatric) Plan Holter showed no atrial fibrillation episodes. He reports he still gets palpitations. During coversation he reported that he does drink a decent amount of teas at home and was unsure if they had caffeine. He is going to check lables closely and cut back on caffienated beverages such as coffee, tea, and chocolate containing products. Advised to log episodes of paliptations and include what he was doing at the time, recently ate, or drank and to bring it to his next appt. Continue current medications and use of CPAP. He is due for his thyroid levels to be rechecked - once levels regulate he may feel better. Coding Level of Care Code Est Pt Level 3 (59091) Diagnoses PAF (paroxysmal atrial fibrillation) I48.0 PVCs (premature ventricular contractions) I49.3 Obstructive sleep apnea G47.33
== END 2023-07-29 14:20 | disposition home or self-care (01) ==
PROVIDERS: PCP Internal Medicine; Visit Provider Nurse Practitioner
DX: I48.0 Paroxysmal atrial fibrillation (principal); I49.3 Ventricular premature depolarization; G47.33 Obstructive sleep apnea (adult) (pediatric)
CPT/HCPCS: 99213

== ENCOUNTER → 2023-07-29 12:53 | Outpatient (BNVA) | payer BC, SELFPAY | PROVIDERS: PCP Internal Medicine; Visit Provider Nurse Practitioner ==

== ENCOUNTER 2023-08-13 10:59 | Outpatient (REF) | payer BC, SELFPAY ==
[2023-08-13 14:17] LABS: Free T4 (Free Thyroxine) 1.45 ng/dL (0.71-1.85); Thyroid Stimulating Hormone 0.02 uIU/mL (0.32-4.0)
== END 2023-08-13 11:00 | disposition home or self-care (01) ==
LOC: HO.HMGCLDS 10:59
PROVIDERS: PCP Internal Medicine; Visit Provider Internal Medicine Endocrinology, Diabetes & Metabolism
DX: C73 Malignant neoplasm of thyroid gland (principal)
CPT/HCPCS: 36415; 84439; 84443

== ENCOUNTER 2023-10-30 13:56 | Outpatient (AMB) | payer BC, SELFPAY ==
--- NOTE | 2023-10-30 14:00 | A.OFFPC_ITS ---
Vital Signs 10/30/23 14:07 Height 6 ft 2 in Weight 256 lb 2 oz BMI 32.9 BP 114/60 Blood Pressure Location Lt brachial Position Sitting Pulse 70 Pulse Source Pulse Oximeter Pulse Oximetry (%) 96 Oxygen Delivery Method Room Air Intake Visit Reasons: hx of thyroid cancer, IGT Seo Consultant Required: No Accompanied by: Self / Same As Patient Allergies No Known Allergies [No Known Allergies*] Allergy (Verified 10/30/23 14:17) Tobacco use date assessed: 11/04/22 Dental Screening Dental Screen Date: 05/01/23 HPI hx of thyroid cancer, IGT HPI Details 68-year-old obese male with atrial fibri llation history of thyroid cancer hypertension obstructive sleep apnea hypercholesterolemia GERD last seen in April 2023. Patient's colonoscopy was done in January 2022. 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 Patient did see Cardiology in July 2023 Holter shows PVCs 2.6% burden no atrial fibrillation episodes on Holter patient sees urology also continuing with citrate continue follow-up. [facility] Medical History PAF (paroxysmal atrial fibrillation) Hepatic cyst Thyroid cancer Arthritis Vitamin D deficiency Multinodular thyroid Thyroid enlargement Acute respiratory failure with hypoxia Bacteremia Left bundle branch block Paroxysmal atrial fibrillation Atrial fibrillation with rapid ventricular response Scoliosis Hip pain Polycystic liver disease Tubular adenoma of colon Hypertension Obstructive sleep apnea History of kidney stones Hypercholesterolemia Obesity GERD (gastroesophageal reflux disease) Surgical History History of appendectomy History of colonoscopy History of lithotripsy History of removal of cyst History of thyroidectomy Family History Father Medical history unknown Mother Medical history unknown Social History Household Members: None Housing: House Do you presently have visiting nurse or other home services: No Alcohol intake: never Comment: HX SCOLIOSIS, FALL OUTSIDE 2 MONTHS AGO Patient Tobacco Use Status: Never used Tobacco e-Cigarette/Vaping Use: Never Used Second Hand Smoke Exposure: No service: No Current occupational status: employed Cognitive needs: No Hearing needs: No Vision needs: Yes Questionnaire PHQ-9 Over the last 2 weeks, how often have you been bothered by any of the following problems? 1. Little interest or pleasure in doing things: not at all 2. Feeling down, depressed, or hopeless: not at all 3. Trouble falling or staying asleep, or sleeping too much: not at all 4. Feeling tired or having little energy: not at all 5. Poor appetite or overeating: not at all 6. Feeling bad about yourself - or that you are a failure or have let yourself or your family down: not at all 7. Trouble concentrating on things, such as reading the newspaper or watching television: not at all 8. Moving or speaking so slowly that other people could have noticed. Or the op posite - being so fidgety or restless that you have been moving around a lot more than usual: not at all 9. Thoughts that you would be better off or of hurting yourself in some way: not at all Total score: 0 Depression Screening Interpretation: Negative Depression Screening Done: Yes 48179 - PHQ-9 Billing: Yes Source: Developed by Drs. Billy Sage, Ani Portillo, Rony Alvarez and colleagues, with an educational raymond from [email or web address]. Thrive Questionnaire Date Thrive assessed: 10/30/23 I am a: Patient What is your living situation today?: I have a steady place to live Within the past 12 months, did the food you bought not last and you didn't have the money to get more?: Never true Within the past 12 months, did you worry whether your food would run out before you got money to buy more?: Never true Do you have trouble paying for medicines?: No Do you have trouble getting transportation to medical appointments?: No Do you have trouble paying your heating and electricity bill?: No Do you have trouble taking care of your child, family member or friend?: No Do you have trouble with day-to-day activities such as bathing, preparing meals, shopping, managing finances, etc.?: No Are you currently unemployed and looking for a job?: No Are you interested in more education?: No Please select the resources that you would like help with: None Currently or been in a relationship where the following occur: no concerns reported THRIVE Score: 0 AUDIT C Alcohol Use Questionnaire (AUDIT-C) 1. How often do you have a drink containing alcohol?: Never 3. How often do you have six or more drinks on one occasion?: Never Total Score: 0 SANNA-7 AMB Questionnaire SANNA-7 Date SANNA - 7 assessed: 10/30/23 Feeling nervous, anxious, or on edge: 0 = Not at all Not being able to stop or control worryin = Not at all Worrying too much about different things: 0 = Not at all Trouble relaxin = Not at all Being so restless that it is hard to sit still: 0 = Not at all Becoming easily annoyed or irritable: 0 = Not at all Feeling afraid as if something awful might happen: 0 = Not at all Total SANNA-7 score (0-4 normal; 5-9 mild; 10-14 moderate; 15-21 severe): 0 Source: Developed by Drs. Billy Sage, Ani Portillo, Rony Alvarez and colleagues, with an educational raymond from [email or web address]. SANNA-7 Assessment Billing SANNA-7 Assessment Tool: SANNA-7 Assessment 65477 Physical exam (Primary Care) Vital Signs: Last Vital Signs Pulse 70 10/30/23 14:07 BP 114/60 10/30/23 14:07 Pulse Ox 96 10/30/23 14:07 Oxygen Delivery Method Room Air 10/30/23 14:07 BMI result Body Mass Index 32.9 Tobacco/Smoking Status: Tobacco use Status Tobacco use date assessed 11/04/22 10/30/23 14:00 Patient Tobacco Use Status Never used Tobacco 10/30/23 14:00 e-Cigarette/Vaping Use Never Used 10/30/23 14:00 PHQ-9: PHQ-9 Score PHQ-9: Total score 0 10/30/23 14:18 Depression Screening Interpretation: Negative Thrive Assessment: Date of Thrive Assessment Date Thrive assessed 10/30/23 10/30/23 14:18 Currently or been in a relationship where the following occur: no concerns reported Const General: alert; No acute distress Eyes Conjunctivae: conjunctivae normal Resp Auscultation: clear to auscultation bilaterally Cardio Rate: regular rate Rhythm: regular rhythm GI Inspection: Yes normal to inspection Extrem General: Yes normal to inspection and No edema Assessment and Plan Assessment & Plan (1) PAF (paroxysmal atrial fibrillation): Code(s): I48.0 - Paroxysmal atrial fibrillation Plan: Continue presently on anticoagulation and continue to monitor renal function. (2) Thyroid cancer: Comment: Status post thyroidectomy Dr. Franklin September 2023 received note from endocrinology low risk for recurrence keep TSH in the normal range. Code(s): C73 - Malignant neoplasm of thyroid gland Plan: Notes from Endocrinology received low risk for recurrence. Keep TSH in the normal range (3) Impaired glucose tolerance: Code(s): R73.02 - Impaired glucose tolerance (oral) Plan: Decrease the amount of carbohydrate intake, pasta, bread, rice and potatoes are all sugar and that is aside from all the sweet stuff, remember that fruits are good but they are Sweet also. (4) Nephrolithiasis: Code(s): N20.0 - Calculus of kidney Plan: Keep well hydrated patient was advised to take potassium citrate continue to follow-up with urology (5) Hypertension: Code(s): I10 - Essential (primary) hypertension Qualifiers: Hypertension type: essential hypertension Qualified Code(s): I10 - Essential (primary) hypertension Plan: Continue with blood pressure medication. Decrease salt intake and exercise p resently on metoprolol 50 mg once a day diltiazem 120 mg once a day (6) Obstructive sleep apnea: Comment: CPAP use Q night > 4 hours nbenefits Code(s): G47.33 - Obstructive sleep apnea (adult) (pediatric) Plan: Continue to use the CPAP more than 4 hours a night and benefits from this. (7) Hypercholesterolemia: Code(s): E78.00 - Pure hypercholesterolemia, unspecified Plan: Avoid fried foods, chicken skin, eggs, butter margarine, pastries and meat. Be it pork or beef they have a lot of cholesterol LDL goal of less than 130 and triglyceride of less than 150. (8) Obesity: Code(s): E66.9 - Obesity, unspecified Qualifiers: Obesity type: due to excess calories Obesity classification: adult class 1 (BMI 30 - 34.9) Serious obesity comorbidity presence: without serious comorbidity Body mass index: BMI 30.0-30.9 Qualified Code(s): E66.09 - Other obesity due to excess calories; Z68.30 - Body mass index [BMI]30.0-30.9, adult Plan: Diet and exercise (9) GERD (gastroesophageal reflux disease): Code(s): K21.9 - Gastro-esophageal reflux disease without esophagitis Qualifiers: Esophagitis presence: without esophagitis Qualified Code(s): K21.9 - Gastro-esophageal reflux disease without esophagitis Plan: Avoid the foods that causes that usually spicy foods, tomato products, juices, coffee, soda and foods that your sensitive to. After eating do not lie down, allow 3-4 hours before in lie down. And keep the head of bed above 30 degrees to avoid the acid from going up. Orders: Orders Complete Blood Count Auto Diff Today E78.00 - Pure hypercholesterolemia, unspecified Comprehensive Met. Panel Today E78.00 - Pure hypercholesterolemia, unspecified Lipid Panel Today E78.00 - Pure hypercholesterolemia, unspecified Vitamin B12 and Folate Today E78.00 - Pure hypercholesterolemia, unspecified Uric Acid Today E78.00 - Pure hypercholesterolemia, unspecified Hemoglobin A1c Today E78.00 - Pure hypercholesterolemia, unspecified Free T4 (Free Thyroxine) Today E78.00 - Pure hypercholesterolemia, unspecified Thyroid Stimulating Hormone Today E78.00 - Pure hypercholesterolemia, unspecified Prostate Specific Antigen Scr Today E78.00 - Pure hypercholesterolemia, unspecified Coding Level of Care Code Est Pt Level 4 (44830) Diagnoses PAF (paroxysmal atrial fibrillation) I48.0 Thyroid cancer C73 Impaired glucose tolerance R73.02 Nephrolithiasis N20.0 Essential hypertension I10 Hypertension type: essential hypertension Obstructive sleep apnea G47.33 Hypercholesterolemia E78.00 Class 1 obesity due to excess calories without serious comorbidity with body mass index (BMI) of 30.0 to 30.9 in adult E66.09; Z68.30 Obesity type: due to excess calories Obesity classification: adult class 1 (BMI 30 - 34.9) Serious obesity comorbidity presence: without serious comorbidity Body mass index: BMI 30.0-30.9 Gastroesophageal reflux disease without esophagitis K21.9 Esophagitis presence: without esophagitis Additional Codes SANNA-7 Assessment Billing - SANNA-7 Assessment Tool: SANNA-7 Assessment [id number] ([id number])
[2023-10-30 14:07] VITALS: BP 114/60; PULSE 70; O2SAT 96; BMI 32.9
== END 2023-10-30 14:56 | disposition home or self-care (01) ==
PROVIDERS: PCP Internal Medicine; Visit Provider Internal Medicine
DX: I48.0 Paroxysmal atrial fibrillation (principal); C73 Malignant neoplasm of thyroid gland; R73.02 Impaired glucose tolerance (oral); N20.0 Calculus of kidney; I10 Essential (primary) hypertension; G47.33 Obstructive sleep apnea (adult) (pediatric); E78.00 Pure hypercholesterolemia, unspecified; E66.09 Other obesity due to excess calories; Z68.30 Body mass index [BMI] 30.0-30.9, adult; K21.9 Gastro-esophageal reflux disease without esophagitis
CPT/HCPCS: 99214

== ENCOUNTER 2023-10-31 09:53 | Outpatient (REF) | payer BC, SELFPAY ==
[2023-10-31 10:16] LABS: MANUAL DIFF FLAG NO
[2023-10-31 10:43] LABS: Basophils Absolute Auto 0.1 X10*3/uL (0.0-0.2); Basophils Percent Auto 1.1 % (0-2); Eosinophils Absolute Auto 0.2 X10*3/uL (0.0-0.4); Eosinophils Percent Auto 4.1 % (0-4); Hematocrit 43.5 % (42.0-52.0); Hemoglobin 14.5 g/dl (14.0-18.0); Imm Gran Abs Auto 0.02 X10*3/uL (0.00-0.03); Imm Gran Pct Auto 0.5 % (0.0-0.4); Lymphocytes Absolute Auto 0.9 X10*3/uL (1.2-4.9); Mean Corpuscular HGB Conc 33.3 g/dl (31.0-36.0); Mean Corpuscular Hemoglobin 30.3 pg (27.0-33.0); Mean Corpuscular Volume 90.8 fL (80.0-98.0); Mean Platelet Volume 9.5 fL (9.4-12.4); Monocytes Absolute Auto 0.4 X10*3/uL (0.1-1.2); Monocytes Percent Auto 9.8 % (2-11); Neutrophils Absolute Auto 2.8 x10*3/uL (2.0-8.3); Neutrophils Percent Auto 63.5 % (45-73); Platelet Count 178 X10*3/uL (160-400); Red Blood Count 4.79 X10*6/uL (4.60-5.80); Red Cell Distribution Width 13.7 % (11.0-16.0); White Blood Count 4.4 X10*3/uL (4.8-10.8)
[2023-10-31 10:50] LABS: Estimated Average Glucose 108 mg/dL; Hemoglobin A1c % 5.4 % (<6.0)
[2023-10-31 11:35] LABS: Alanine Aminotransferase 24 U/L (0-40); Albumin Level 3.8 g/dL (3.5-5.0); Alkaline Phosphatase 81 U/L (39-117); Anion Gap 11 (12-20); Aspartate Amino Transferase 15 U/L (5-37); Bilirubin Total 0.9 mg/dL (0.0-1.0); Blood Urea Nitrogen 13 mg/dL (9-16); Carbon Dioxide 26 mmol/L (22-29); Chloride 110 mmol/L (96-108); Cholesterol 158 mg/dL (<200); Estimated Glomerular Filt Rate > 60; Free T4 (Free Thyroxine) 1.13 ng/dL (0.71-1.85); Glucose Random 96 mg/dL (60-115); HDL Cholesterol 45 mg/dL (>40); LDL Cholesterol Calculated 97 mg/dL (<100); Potassium 4.2 mmol/L (3.3-5.1); Sodium 143 mmol/L (135-145); Total Protein 6.4 g/dL (6.5-8.0); Triglycerides 82 mg/dL (<150)
[2023-10-31 11:36] LABS: Thyroid Stimulating Hormone 0.64 uIU/mL (0.32-4.0)
[2023-10-31 11:46] LABS: Uric Acid 5.9 mg/dL (3.4-7.0)
[2023-10-31 11:50] LABS: Folate 10.8 ng/mL (> or = 4.0); Prostate Specific Antigen Scr 2.17 ng/mL (<0.05-4.0); Vitamin B12 399 pg/mL (200-900)
== END 2023-10-31 09:54 | disposition home or self-care (01) ==
LOC: HO.LAB 09:53
PROVIDERS: Internal Medicine Endocrinology, Diabetes & Metabolism; PCP Internal Medicine; Visit Provider Internal Medicine
DX: C73 Malignant neoplasm of thyroid gland (principal); E78.00 Pure hypercholesterolemia, unspecified; Z12.5 Encounter for screening for malignant neoplasm of prostate
CPT/HCPCS: 36415; 80053; 80061; 82607; 82746; 83036; 84153; 84439; 84443; 84550; 85025

== ENCOUNTER 2023-12-28 03:23 | Emergency (ER) | payer BC, SELFPAY ==
--- NOTE | ~2023-12-28 | CT_ITS ---
EXAMINATION: CT ABDOMEN AND PELVIS WITHOUT CONTRAST CLINICAL INFORMATION: Right flank pain COMPARISON: CT abdomen pelvis 01/07/2021. TECHNIQUE: Multidetector volumetric imaging was performed from the superior aspect of the liver through the pubic symphysis. Sagittal and coronal reformatted images were obtained on the technologist's workstation. This CT examination was performed using dose optimization techniques as appropriate, variously including the following: *Automated exposure control *Adjustment of mA and/or kV according to patient size (this includes techniques or standardized protocols for targeted exams where dose is matched to indication/reason for exam; i.e. extremities or head) *Use of iterative reconstruction technique DLP: 867 mGy-cm FINDINGS: LUNG BASES: Bilateral calcified pleural plaques. LIVER, GALLBLADDER, AND BILIARY TREE: Multiple rounded low density foci are again noted within the liver unchanged compared with 01/07/2021 most likely representing benign, simple cyst warranting no additional imaging follow-up on the basis of this examination. The gallbladder is unremarkable with no evidence of radiopaque gallstones, gallbladder wall thickening, or obvious pericholecystic inflammatory changes. PANCREAS: Unremarkable. SPLEEN: Unremarkable. ADRENAL GLANDS: Unremarkable. KIDNEYS AND URETERS: A 4 mm x 2 mm calculus is present in the right ureter at the level of S2-S3. Series 3 image 66) Moderate proximal right ureterectasis and moderate right hydronephrosis noted. Mild right perinephric inflammatory changes. No right perinephric fluid collections. Left renal calculi: 2 mm superior pole, 2 mm and 2 mm interpolar and 2 mm inferior pole calculi. No left-sided hydronephrosis or perinephric inflammatory changes. BLADDER: Moderate physiologic distention. GASTROINTESTINAL TRACT: The appendix is not visualized. No inflammatory changes are present adjacent to the cecum. Normal appearance of the terminal ileum. No free intraperitoneal fluid or gas collections. No small bowel dilatation. Normal appearance of the stomach and duodenum. ABDOMINAL WALL: No significant hernia is appreciated. LYMPH NODES: Normal. VASCULAR: Mild scattered calcific atherosclerosis PELVIC VISCERA: Unremarkable. OSSEOUS STRUCTURES: Multilevel chronic cervical lumbar spondylosis. No vertebral body compression deformities. CT/CT abdomen pelvis wo IV con IMPRESSION: 1. Single obstructing 4 mm x 2 mm calculus within the distal right ureter at the level of S2-S3 with associated moderate right-sided hydronephrosis and proximal right ureterectasis. 2. Multiple punctate nonobstructing calculi within the left kidney. No left-sided hydronephrosis. 3. 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
[2023-12-28 03:30] VITALS: BP 130/81; BP 142/80; PULSE 76; PULSE 86; RESP 20; TEMP 36.8; O2SAT 96; BMI 32.3
[2023-12-28 03:58] LABS: Basophils Percent Auto 0.5 % (0-2); Eosinophils Absolute Auto 0.2 X10*3/uL (0.0-0.4); Eosinophils Percent Auto 3.2 % (0-4); Hematocrit 42.6 % (42.0-52.0); Hemoglobin 14.5 g/dl (14.0-18.0); Imm Gran Abs Auto 0.02 X10*3/uL (0.00-0.03); Imm Gran Pct Auto 0.4 % (0.0-0.4); Lymphocytes Absolute Auto 1.1 X10*3/uL (1.2-4.9); Lymphocytes Percent Auto 19.1 % (20-40); MANUAL DIFF FLAG NO; Mean Corpuscular Volume 91.2 fL (80.0-98.0); Mean Platelet Volume 9.3 fL (9.4-12.4); Monocytes Absolute Auto 0.5 X10*3/uL (0.1-1.2); Monocytes Percent Auto 8.8 % (2-11); Neutrophils Absolute Auto 3.8 x10*3/uL (2.0-8.3); Platelet Count 172 X10*3/uL (160-400); Red Blood Count 4.67 X10*6/uL (4.60-5.80); Red Cell Distribution Width 13.8 % (11.0-16.0); White Blood Count 5.5 X10*3/uL (4.8-10.8)
--- NOTE | 2023-12-28 04:00 | PC.NURSE ---
pt biba from home, a&ox4, respirations even and unlabored. pt reporting sudden onset of right flank pain 10/10 for 25 minutes prior to arrival. pt reports hx of kidney stones. pt denies any urinary symptoms at this time. 20G placed in left ac, pt medicated per aug.
--- NOTE | 2023-12-28 04:00 | ED.MALEGU ---
HPI - Male Genitourinary General Chief complaint: Urogenital-Male Stated complaint: RT SIDED FLANK PAIN Time Seen by Provider: 12/28/23 04:00 History of Present Illness ED Provider: Mike ANDINO Narrative: The patient is a 68-year-old male who presents for evaluation of right flank pain that started about half an hour prior to arrival. He arrived by ambulance. He was in a great deal of pain. He says his pain felt like previous kidney stone pain. No fever, sweats, chills. He has had nausea. Related Data Home Medications ?Medication ?Instructions ?Recorded ?Confirmed milk thistle 175 mg tablet 175 mg PO BID 11/12/22 06/04/23 niacin 500 mg tablet 500 mg PO DAILY 11/12/22 06/04/23 omega-3s 300 sc-nzg-[id number]-other 1 cap PO DAILY 01/21/23 06/04/23 [id number] oil 1,000 mg capsule ([place]-3 Fish Oil) potassium citrate 10 mEq (1,080 20 meq PO BID 01/21/23 06/04/23 mg) tablet,extended release rivaroxaban 20 mg tablet 20 mg PO DAILY 01/21/23 06/04/23 Previous Rx's ?Medication ?Instructions ?Recorded metoprolol succinate 50 mg 50 mg PO DAILY #90 tabs 06/19/22 tablet,extended release 24 hr allopurinol 100 mg tablet 100 mg PO DAILY 90 days #90 tabs 01/16/23 diltiazem HCl 120 mg 120 mg PO DAILY #30 caps 01/21/23 capsule,extended release 24 hr (Cardizem CD) nystatin 100,000 unit/mL oral 5 ml PO TID 7 days #105 mL 02/05/23 suspension atorvastatin 10 mg tablet 10 mg PO DAILY 90 days #90 tabs 04/16/23 levothyroxine 125 mcg tablet 125 mcg PO DAILY #30 tabs 10/13/23 ondansetron 4 mg disintegrating 4 mg PO Q6H PRN nausea and 12/28/23 tablet vomiting #10 tabs oxycodone 5 mg tablet 5 mg PO Q6H PRN pain #12 tabs 12/28/23 Allergies Allergy/AdvReac Type Severity Reaction Status Date / Time No Known Allergies Allergy Verified 12/28/23 03:32 [No Known Allergies*] Review of Systems Review of Systems: Yes all other systems are reviewed and are negative [facility] Past Medical History Medical History PAF (paroxysmal atrial fibrillation) Hepatic cyst Thyroid cancer Arthritis Vitamin D deficiency Multinodular thyroid Thyroid enlargement Acute respiratory failure with hypoxia Bacteremia Left bundle branch block Paroxysmal atrial fibrillation Atrial fibrillation with rapid ventricular response Scoliosis Hip pain Polycystic liver disease Tubular adenoma of colon Hypertension Obstructive sleep apnea History of kidney stones Hypercholesterolemia Obesity GERD (gastroesophageal reflux disease) Surgical History History of appendectomy History of colonoscopy History of lithotripsy History of removal of cyst History of thyroidectomy Family History Family History Father Medical history unknown Mother Medical history unknown Social History Social History Household Members: None Housing: House Do you presently have visiting nurse or other home services: No Alcohol intake: never Comment: HX SCOLIOSIS, FALL OUTSIDE 2 MONTHS AGO Patient Tobacco Use Status: Never used Tobacco Smoked in Last 30 Days: No e-Cigarette/Vaping Use: Never Used Second Hand Smoke Exposure: No Use of substances other than those prescribed or required for medical reasons: No Advance Directives: No Advance Directives Information Provided: No Do you have a plan to hurt others: No Plan service: No Current occupational status: employed Cognitive needs: No Hearing needs: No Vision needs: Yes Physical Exam Vital Signs: Vital Signs: Last Vital Signs Temp 97.6 F 12/28/23 07:59 Pulse 79 12/28/23 07:59 Resp 18 12/28/23 07:59 BP 118/72 12/28/23 07:59 Pulse Ox 97 12/28/23 07:59 O2 Del Method Room Air 12/28/23 07:59 BMI result Body Mass Index 32.3 Const: Other: The patient is a 68-year-old male. He looks somewhat chronically ill. He looks somewhat uncomfortable. He does not appear toxic. His mental status is clear. HEENT: Other: Face is symmetrical. Mucous membranes moist. Eyes: Other: Pupils are round equal, conjunctivae are clear Neck: Other: No JVD Cardio: Rate: regular rate Rhythm: regular rhythm Heart sounds: S1 normal heart sound present and S2 normal heart sound present GI: Other: The patient has a protuberant abdomen that is soft and not significantly tender. : Other: Mild right-sided CVA percussion tenderness Skin: Other: Skin is dry and unremarkable Neuro: Other: The patient is awake and alert with a normal mental status. Cranial nerves are grossly intact. He moves his extremities normally and seems grossly neurologically intact. Extrem: Other: No calf swelling or tenderness Medications Administered Discontinued Medications Generic Name Dose Route Start Last Admin Trade Name Kojo PRN Reason Stop Dose Admin Acetaminophen 975 mg 12/28/23 07:42 12/28/23 08:02 Acetaminophen 325 Mg Tablet PO 12/28/23 07:43 975 mg ONCE ONE Administration Droperidol 1.25 mg 12/28/23 04:01 12/28/23 04:08 Droperidol 5 Mg/2 Ml Vial IVPUSH 12/28/23 04:02 1.25 mg ONCE ONE Administration Hydromorphone HCl 1 mg 12/28/23 04:00 12/28/23 04:08 Hydromorphone Hcl 1 Mg/Ml Syringe IVPUSH 12/28/23 04:01 1 mg ONCE ONE Administration Protocol Sodium Chloride 1,000 mls @ 999 mls/hr 12/28/23 04:15 12/28/23 05:09 Ns IV 12/28/23 05:15 Infused .Q1H1M CESAR Infusion Morphine Sulfate 15 mg 12/28/23 07:42 12/28/23 08:02 Morphine Sulfate Immed Release 15 Mg Tablet PO 12/28/23 07:43 15 mg ONCE ONE Administration Ondansetron HCl 4 mg 12/28/23 07:43 12/28/23 08:02 Ondansetron Odt 4 Mg Tab.Rapdis TRANSLINGU 12/28/23 07:44 4 mg ONCE ONE Administration Tamsulosin HCl 0.4 mg 12/28/23 07:48 12/28/23 08:02 Tamsulosin Hcl 0.4 Mg Capsule PO 12/28/23 07:49 0.4 mg ONCE ONE Administration Medical Decision Making Medical Decision Making [facility] Narrative: The patient is a 68-year-old male who presents with right-sided flank pain consistent with previous episodes of ureteral/renal colic. The patient is on rivaroxaban. Patient initially seemed quite uncomfortable and was given hydromorphone for pain with good relief. A CT scan of his abdomen and pelvis without contrast shows a 4 mm x 2 mm stone in the right distal ureter associated with hydronephrosis. Patient has seemed comfortable after his initial dose of hydromorphone. He seems comfortable with the idea of trying to manage his pain with the oral medication at home. The patient will be discharged with a prescription for oxycodone and ondansetron. He will also use acetaminophen. He has a urologist, Dr. Darden. He will contact his urologist tomorrow or return to the ER if worse before then. Lab Data 12/28/23 03:54 12/28/23 03:54 Labs: Lab Results 12/28/23 12/28/23 Range/Units 03:54 07:15 WBC 5.5 (4.8-10.8) X10*3/uL RBC 4.67 (4.60-5.80) X10*6/uL Hgb 14.5 (14.0-18.0) g/dl Hct 42.6 (42.0-52.0) % MCV 91.2 (80.0-98.0) fL MCH 31.0 (27.0-33.0) pg MCHC 34.0 (31.0-36.0) g/dl RDW 13.8 (11.0-16.0) % Plt Count 172 (160-400) X10*3/uL MPV 9.3 L (9.4-12.4) fL Immature Gran % (Auto) 0.4 (0.0-0.4) % Neut % (Auto) 68.0 (45-73) % Lymph % (Auto) 19.1 L (20-40) % [place] % (Auto) 8.8 (2-11) % Eos % (Auto) 3.2 (0-4) % Baso % (Auto) 0.5 (0-2) % Lymph # (Auto) 1.1 L (1.2-4.9) X10*3/uL [place] # (Auto) 0.5 (0.1-1.2) X10*3/uL Eos # (Auto) 0.2 (0.0-0.4) X10*3/uL Baso # (Auto) 0.0 (0.0-0.2) X10*3/uL Abs Immat Gran (auto) 0.02 (0.00-0.03) X10*3/uL Absolute Neuts (auto) 3.8 (2.0-8.3) x10*3/uL Absolute Nucleated RBC 0.000 (0.0-0.012) X10*3/uL Nucleated RBC % (auto) 0.0 (0.0-0.2) /100WBC Sodium 144 (135-145) mmol/L Potassium 4.3 (3.3-5.1) mmol/L Chloride 111 H (96-108) mmol/L Carbon Dioxide 24 (22-29) mmol/L Anion Gap 13 (12-20) BUN 14 (9-16) mg/dL Creatinine 1.01 (0.5-1.4) mg/dL Estim Creat Clear Calc 96.6 Estimated GFR > 60 Random Glucose 120 H (60-115) mg/dL Calcium 8.7 (8.4-10.2) mg/dL Total Bilirubin 0.7 (0.0-1.0) mg/dL Direct Bilirubin 0.3 (0.0-0.5) mg/dL AST 14 (5-37) U/L ALT 21 (0-40) U/L Alkaline Phosphatase 77 (39-117) U/L Total Protein 6.3 L (6.5-8.0) g/dL Albumin 3.9 (3.5-5.0) g/dL Lipase 35 (8-78) U/L Urine Color Dark Yellow Urine Appearance Cloudy Urine pH 6.0 (5.0-9.0) Ur Specific [place] 1.020 (1.005-1.025) Urine Protein See Note (Neg-Trace) mg/dL Urine Glucose (UA) Negative (Negative) mg/dL Urine Ketones Negative (Negative) mg/dL Urine Blood Large (3+) H (Negative) Urine Nitrite Negative (Negative) Ur Leukocyte Esterase See Note (Negative) Urine RBC >20 H (0-2) /HPF Urine WBC 0-5 (0-5) /HPF Ur Squamous Epith Cells 0-2 (0-2) /HPF Urine Bacteria None Seen (None Seen) Hyaline Casts 0-2 (0-2) /LPF Discharge Plan Discharge Clinical Impression: Calculus of distal right ureter Patient Disposition: Home, Self-Care Instructions: Ureteral Stones (ED) Additional Instructions: Your CT scan shows a 4 mm by 2 mm calculus in your distal right ureter. The ureter is the tube that connects your kidney to your bladder and delivers the urine from the kidney to the bladder. Most stones which are less than 6 mm in diameter will pass without a procedure by a urologist. I think it would be reasonable for you to try to manage your symptoms at home for a day or two. I have sent a prescription for oxycodone tablets to your pharmacy which you may use at home as needed for pain. You may also take 2 extra-strength acetaminophen (Tylenol) up to 3 times per day as needed. I have also sent a prescription for ondansetron which you may use as needed for nausea. Please call your urologist tomorrow morning to arrange a follow up appointment and discuss how you are doing. Return to the emergency room if significantly worse. Prescriptions: New oxycodone 5 mg tablet 5 mg PO Q6H PRN (Reason: pain) Qty: 12 0RF Rx Instructions: Partial Fill upon patient request. ondansetron 4 mg tablet,disintegrating 4 mg PO Q6H PRN (Reason: nausea and vomiting) Qty: 10 0RF No Action allopurinol 100 mg tablet 100 mg PO DAILY 90 Days Qty: 90 3RF atorvastatin 10 mg tablet 10 mg PO DAILY 90 Days Qty: 90 1RF levothyroxine 125 mcg tablet 125 mcg PO DAILY Qty: 30 5RF potassium citrate 10 mEq (1,080 mg) tablet extended release 20 meq PO BID rivaroxaban 20 mg tablet 20 mg PO DAILY [place]-3 Fish Oil 300-1,000 mg Capsule 1 cap PO DAILY diltiazem HCl [Cardizem CD] 120 mg capsule,extended release 24hr 120 mg PO DAILY Qty: 30 0RF nystatin 100,000 unit/mL suspension 5 ml PO TID 7 Days Qty: 105 0RF Rx Instructions: swish and swallow metoprolol succinate 50 mg tablet extended release 24 hr 50 mg PO DAILY Qty: 90 1RF niacin 500 mg tablet 500 mg PO DAILY milk thistle 175 mg tablet 175 mg PO BID Rx Instructions: give with meal/snack Referrals: Derek Darden MD [Physician] - (right 4x2 mm right distal ureteral stone) Discharge Date/Time: 12/28/23 08:42 Print Language: Yi
[2023-12-28 04:08] VITALS: RESP 18
[2023-12-28] MEDS: 0.9 % Sodium Chloride 1,000 ML 999 ML IV (04:08)
[2023-12-28] MEDS: droPERidol 5 MG/2 ML VIAL 1.25 MG IVPUSH (04:08)
[2023-12-28] MEDS: HYDROmorphone HCl 1 MG/ML SYRINGE IVPUSH (04:08)
[2023-12-28 04:12] LABS: Alanine Aminotransferase 21 U/L (0-40); Albumin Level 3.9 g/dL (3.5-5.0); Alkaline Phosphatase 77 U/L (39-117); Anion Gap 13 (12-20); Aspartate Amino Transferase 14 U/L (5-37); Bilirubin Direct 0.3 mg/dL (0.0-0.5); Bilirubin Total 0.7 mg/dL (0.0-1.0); Blood Urea Nitrogen 14 mg/dL (9-16); Calcium 8.7 mg/dL (8.4-10.2); Carbon Dioxide 24 mmol/L (22-29); Chloride 111 mmol/L (96-108); Creatinine Clr Calc Pharmacy 96.6; Estimated Glomerular Filt Rate > 60; Glucose Random 120 mg/dL (60-115); Lipase 35 U/L (8-78); Potassium 4.3 mmol/L (3.3-5.1); Sodium 144 mmol/L (135-145); Total Protein 6.3 g/dL (6.5-8.0)
[2023-12-28 06:20] VITALS: BP 115/88; PULSE 70; RESP 17; TEMP 36.2; O2SAT 97
[2023-12-28 07:30] LABS: Appearance Urine Cloudy; Glucose Urine UA Negative (Negative); Nitrite Urine Negative (Negative); UMIC TRIGGER UACC YES; Urine Blood Large (3+) (Negative); Urine Ketones Negative (Negative)
[2023-12-28 07:31] LABS: Color Urine Dark Yellow
[2023-12-28 07:34] LABS: Bacteria Urine None Seen (None Seen); Hyaline Casts Urine 0-2 /LPF (0-2); RBC Urine >20 /HPF (0-2); Squamous Epithelial Cell Urine 0-2 /HPF (0-2); WBC Urine 0-5 /HPF (0-5)
[2023-12-28 07:59] VITALS: BP 118/72; PULSE 79; RESP 18; TEMP 36.4; O2SAT 97
[2023-12-28] MEDS: Morphine Sulfate Immed Release 15 MG TABLET PO (08:02)
[2023-12-28] MEDS: Acetaminophen 325 MG TABLET 975 MG PO (08:02)
[2023-12-28] MEDS: Tamsulosin HCL 0.4 MG CAPSULE PO (08:02)
[2023-12-28] MEDS: Ondansetron ODT 4 MG TAB.RAPDIS TRANSLINGU (08:02)
== END 2023-12-28 08:42 | disposition home or self-care (01) ==
PROVIDERS: Emergency Provider Emergency Medicine; PCP Internal Medicine
DX: N13.2 Hydronephrosis with renal and ureteral calculous obstruction (principal); R10.9 Unspecified abdominal pain; I48.0 Paroxysmal atrial fibrillation; Z79.01 Long term (current) use of 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; Z79.899 Other long term (current) drug therapy; I10 Essential (primary) hypertension
CPT/HCPCS: 36415; 74176; 80048; 80076; 81001; 83690; 85025; 96361; 96374; 96375; 99284; 99285; J1170; J1790

== ENCOUNTER 2024-02-04 13:32 | Outpatient (AMB) | payer BC, SELFPAY ==
[2024-02-04 14:03] VITALS: BP 120/62; PULSE 64; BMI 31.9
--- NOTE | 2024-02-04 14:03 | A.OFFVIS_ITS ---
Vital Signs 02/04/24 14:03 Height 6 ft 3 in Weight 255 lb 4.725 oz BMI 31.9 BP 120/62 Blood Pressure Location Lt brachial Position Sitting Pulse 64 Pulse Source Monitor Intake Visit Reasons: 6 mth f/up Intake Note: 6 mth f/up- pt is doing fine Technician Terminal And Repeater Required: No Accompanied by: Self / Same As Patient Allergies No Known Allergies [No Known Allergies*] Allergy (Verified 12/28/23 03:32) Medication List - Last Reconciled 02/04/24 by Ashkan Rivera MD allopurinol 100 mg PO DAILY 90 days atorvastatin 10 mg PO DAILY 90 days diltiazem HCl CD (Cardizem CD) 120 mg PO DAILY levothyroxine 125 mcg PO DAILY metoprolol succinate ER 50 mg PO DAILY milk thistle 175 mg PO BID niacin 500 mg PO DAILY nystatin 5 mL PO TID 7 days pyhrc-[id number]-tqs-epa-fish oil 300-1,000 mg ([place]-3 Fish Oil) 1 cap PO DAILY potassium citrate ER 20 mEq PO BID rivaroxaban 20 mg PO DAILY HPI Comments Details: 67-year-old gentleman here for follow-up. He was seen in February 2020 when he presented to us after admission at [facility]. He had chest pain and presented to [facility]. He underwent stress testing there which did not show any perfusion defect. His pain was reproducible and quite atypical. He has background of paroxysmal atrial flutter. He had rate-related left bundle-branch block when he had atrial fibrillation with rapid ventricular respo nse. In sinus rhythm and when his heart rate is low the bundle-branch is not present. He is denying any chest pain or shortness of breath. No bleeding concerns. Blood pressure control is good. Taking medications regularly. 03/05/2023: He returns for follow-up. He has been experiencing some palpitations up to 2 times a day for the last 2 weeks. He is saying that this reminds him office AFib episodes previously. He has been taking medications regularly. No other complaints currently. EKG in the office is showing sinus rhythm. It appears he was admitted to [facility] in January 2023 when he was in AFib with RVR. He spontaneously converted to sinus rhythm in the hospital. 02/04/24: He is here for follow-up. He has been doing well. Occasionally he feels palpitations lasting for few seconds. Previously had Holter monitor which showed premature ventricular complexes. He is on diltiazem and metoprolol succinate. He is on rivaroxaban for anticoagulation. No bleeding concerns. Overall clinically stable. Blood pressure is well controlled. [facility] Medical History PAF (paroxysmal atrial fibrillation) Hepatic cyst Thyroid cancer Arthritis Vitamin D deficiency Multinodular thyroid Thyroid enlargement Acute respiratory failure with hypoxia Bacteremia Left bundle branch block Paroxysmal atrial fibrillation Atrial fibrillation with rapid ventricular response Scoliosis Hip pain Polycystic liver disease Tubular adenoma of colon Hypertension Obstructive sleep apnea History of kidney stones Hypercholesterolemia Obesity GERD (gastroesophageal reflux disease) Surgical History History of appendectomy History of colonoscopy History of lithotripsy History of removal of cyst History of thyroidectomy Family History Father Medical history unknown Mother Medical history unknown Social History Household Members: None Housing: House Do you presently have visiting nurse or other home services: No Alcohol intake: never Comment: HX SCOLIOSIS, FALL OUTSIDE 2 MONTHS AGO Patient Tobacco Use Status: Never used Tobacco e-Cigarette/Vaping Use: Never Used Second Hand Smoke Exposure: No service: No Current occupational status: employed Cognitive needs: No Hearing needs: No Vision needs: Yes Review of Systems Const Denies chills, Denies fatigue, Denies fever(s), Denies frequent falls, Denies weakness, Denies weight gain and Denies weight loss ENT Denies dizziness Card Denies chest pain, Denies leg edema, Denies lightheadedness, Denies palpitations, Denies dyspnea and Denies dyspnea on exertion Resp Denies cough, Denies dyspnea and Denies dyspnea on exertion GI Denies hematochezia Musc Denies abnormal gait, Denies muscle weakness, Denies numbness, Denies radiating pain into limb and Denies tingling Neuro Denies abnormal gait, Denies dizziness, Denies frequent falls, Denies numbness, Denies tingling and Denies weakness Endo Denies fatigue and Denies palpitations Physical Exam Vital Signs: Last Vital Signs Pulse 64 02/04/24 14:03 BP 120/62 02/04/24 14:03 BMI result Body Mass Index 31.9 GENERAL APPEARANCE: in no acute distress, pleasant. NECK: no carotid bruit, no jugular venous distention. Thyroidectomy scar. SKIN: no suspicious lesions, warm and dry. HEART: no murmurs, regular rate and rhythm. LUNGS: clear to auscultation bilaterally. ABDOMEN: soft, nontender. EXTREMITIES: Mild edema. PERIPHERAL PULSES: equal. NEUROLOGIC: No gross deficits, AAO X 3 Office Procedures EKG Details: Sinus rhythm 64 beats per minute, rightward axis, can not rule out inferoposterior infarct, QTC 429 milliseconds. [id number], Complete Assessment & Plan Assessment & Plan (1) Hypertension: Code(s): I10 - Essential (primary) hypertension Category: Medical Qualifiers: Hypertension type: essential hypertension Qualified Code(s): I10 - Essential (primary) hypertension (2) PAF (paroxysmal atrial fibrillation): Code(s): I48.0 - Paroxysmal atrial fibrillation Category: Medical Plan 68-year-old gentleman who is here for follow-up. He has background history of paroxysmal atrial fibrillation. He was admitted to [facility] with viral illness and AFib with RVR. He converted to sinus rhythm on his own. His amlodipine was stopped and changed to diltiazem. He is currently taking diltiazem 120 mg daily, metoprolol succinate 50 mg daily and rivaroxaban. Continues to be in sinus rhythm. Previous Holter monitoring in 03/12/2023 did not show any atrial fibrillation. Some premature ventricular complexes were noted. He is not endorsing any significant symptoms currently. Clinically stable. Blood pressure well controlled. Follow-up with us in 6 months. Thank you for allowing me to participate in the care of your patient. Please feel free to contact me if you have any questions. Coding Level of Care Code Est Pt Level 4 (14834) Diagnoses Essential hypertension I10 Hypertension type: essential hypertension PAF (paroxysmal atrial fibrillation) I48.0 CPT Codes EKG - CPT: 31575-[id number], Complete ([id number])
== END 2024-02-04 14:23 | disposition home or self-care (01) ==
PROVIDERS: PCP Internal Medicine; Visit Provider Internal Medicine Cardiovascular Disease
DX: I10 Essential (primary) hypertension (principal); I48.0 Paroxysmal atrial fibrillation
CPT/HCPCS: 93010; 99214

== ENCOUNTER → 2024-02-04 13:32 | Outpatient (BNVA) | payer BC, SELFPAY | PROVIDERS: PCP Internal Medicine; Visit Provider Internal Medicine Cardiovascular Disease | DX: I10 Essential (primary) hypertension (principal); I48.0 Paroxysmal atrial fibrillation; Z79.01 Long term (current) use of 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; Z79.899 Other long term (current) drug therapy | CPT/HCPCS: 93005 ==

== ENCOUNTER 2024-02-10 13:36 | Outpatient (AMB) | payer BC, SELFPAY ==
--- NOTE | 2024-02-10 14:03 | A.OFFVIS_ITS ---
Intake Visit Reasons: [facility] [place] St[place]/PSA(set) Intake Note: Patient is present for [facility] [facility]/PSA Follow up Urology Med: Allopurinol Antibiotic Allergy: None Blood Thinner: Rivaroxaban Patient recent PSA 10/2023 2.17 Patient is feeling better since his ER visit for kidney stones Patient has no pain on either flank side Informatics Educator Required: No Accompanied by: Self / Same As Patient Allergies No Known Allergies [No Known Allergies*] Allergy (Verified 02/10/24 14:06) HPI Comments Details: Carlos is a pleasant male. He is seen for following urologic issues - renal stones Small stone December Presented to emergency room Medical expulsion therapy successful Discussed imaging with printed image Three-month follow-up renal ultrasound Encouraged 70 oz of fluid each day with lemon Nephrolithiasis Current consultation for further evaluation of nephrolithiasis Imaging - 01/10 CT scan with left distal stone, bilateral scattered stones maximum 3 mm on right - 05/13 renal ultrasound bilateral 3 mm stone - 12/12 renal ultrasound 4 mm left stone - 06/13 renal ultrasound 3 mm bilateral stone - 06/14 renal ultrasound bilateral 4-5 mm stones to each side. - 01/13 CT bilateral 2 mm stones each side - 4 mm proximal right with mild hydroureteronephrosis, creatinine 1.0 Renal intervention - 02/10 left ureteroscopy laser lithotripsy stent placement Stone analysis - prior calcium oxalate Therapy - fluid intake - 2 times a day 20 mEq citrate PFSH Medical History PAF (paroxysmal atrial fibrillation) Hepatic cyst Thyroid cancer Arthritis Vitamin D deficiency Multinodular thyroid Thyroid enlargement Acute respiratory failure with hypoxia Bacteremia Left bundle branch block Paroxysmal atrial fibrillation Atrial fibrillation with rapid ventricular response Scoliosis Hip pain Polycystic liver disease Tubular adenoma of colon Hypertension Obstructive sleep apnea History of kidney stones Hypercholesterolemia Obesity GERD (gastroesophageal reflux disease) Surgical History History of appendectomy History of colonoscopy History of lithotripsy History of removal of cyst History of thyroidectomy Family History Father Medical history unknown Mother Medical history unknown Social History Household Members: None Housing: House Do you presently have visiting nurse or other home services: No Alcohol intake: never Comment: HX SCOLIOSIS, FALL OUTSIDE 2 MONTHS AGO Patient Tobacco Use Status: Never used Tobacco e-Cigarette/Vaping Use: Never Used Second Hand Smoke Exposure: No service: No Current occupational status: employed Cognitive needs: No Hearing needs: No Vision needs: Yes Review of Systems Const Denies chills and Denies fever(s) Card Reports no additional complaints and Denies syncope Resp Denies cough GI Denies abdominal pain and Denies heartburn Reports as per HPI and Denies change in libido Neuro Denies syncope Psych Denies change in libido Endo Denies change in libido Physical Exam Const General: cooperative, healthy appearing, comfortable and no acute distress Orientation/consciousness: patient oriented x3 HEENT Face and sinus: Yes normal facial exam Mouth: moist mucous membranes Neck Neck: Yes normal visual inspection, Yes full ROM and Yes trachea midline Chest Chest palpation & inspection: normal inspection of the chest Resp Effort & Inspection: normal respiratory effort, able to speak in complete sentences and no respiratory distress GI Inspection: Yes normal to inspection Back/Spine/Pelvis Cervical Spine: normal cervical lordosis Thoracic/Lumbar Spine: thoracic and lumbar spine normal to inspection Skin General skin exam: no rashes or lesions noted Neuro General: patient oriented x3, gait normal, tone normal and moves all extremities Extrem General: Yes normal to inspection and Yes capillary refill normal Assessment & Plan Assessment & Plan (1) Nephrolithiasis: Code(s): N20.0 - Calculus of kidney Category: Medical Plan Three-month follow-up renal ultrasound tele Patient Instructions: Imaging studies, laboratory and physical exam results were discussed and reviewed in detail. No major barriers to patient understanding were identified. An opportunity to ask questions regarding the treatment plan was provided. All questions were answered. The patient expressed understanding and agreement with the above treatment plan. The patient is aware they should contact our office by phone for worsening of their current condition or the appearance of new urologic symptoms. Compliance is encouraged with any medications and followup testing that is ordered. It is a privilege to participate in the urologic care of your patient. If you have any questions or concerns regarding treatment for the above conditions, or other urologic issues, please do not hesitate to contact me. The office telephone contact is [phone]. This note is constructed using voice recognition software. While every effort has been made to ensure accuracy hotel or motel room service supervisor errors may have been included. Yours sincerely, Dr Derek Darden MD, [facility] - Urology Providers of Expert, Compassionate Care for the Genitourinary System Coding Level of Care Code Est Pt Level 4 (09666) Diagnoses Nephrolithiasis N20.0
== END 2024-02-10 14:40 | disposition home or self-care (01) ==
PROVIDERS: PCP Internal Medicine; Visit Provider Urology
DX: N20.0 Calculus of kidney (principal)
CPT/HCPCS: 99214

== ENCOUNTER → 2024-02-10 13:36 | Outpatient (BNVA) | payer BC, SELFPAY | PROVIDERS: PCP Internal Medicine; Visit Provider Urology ==

== ENCOUNTER 2024-03-22 14:26 | Outpatient (AMB) | payer BC, SELFPAY ==
[2024-03-22 14:36] VITALS: BP 130/62; PULSE 66; O2SAT 96; BMI 32.0
--- NOTE | 2024-03-22 14:36 | MHC.PC.OV ---
Vital Signs 03/22/24 14:36 Height 6 ft 3 in Weight 256 lb BMI 32.0 BP 130/62 Blood Pressure Location Lt brachial Position Sitting Pulse 66 Pulse Source Pulse Oximeter Pulse Oximetry (%) 96 Oxygen Delivery Method Room Air Intake Visit Reasons: A fib Asset Protection Greeter Required: No Accompanied by: Self / Same As Patient Allergies No Known Allergies [No Known Allergies*] Allergy (Verified 03/22/24 14:37) Tobacco use date assessed: 03/22/24 Fall risk assessment: No Falls in past year Last assessed Fall Risk: 03/22/24 Dental Screening Dental Screen Date: 03/22/24 Did you have a dental visit in the last 12 months?: Yes Did you have a dental problem in the last 6 months where you did not have access to dental care?: No Was dental information given to patient?: Patient has dentist HPI A fib HPI Details 69-year-old obese male with atrial fibrillation history of thyroid cancer impaired glucose tolerance hypertension obstructive sleep apnea hypercholesterolemia GERD last seen in 11/10/2023. Patient's colonoscopy is up-to-date. Review of the notes has seen Urology 02/10/2024 nephrolithiasis continuing with potassium citrate. Patient also also met cardiology February 08 occasional palpitations Holter done PVCs on diltiazem and metoprolol on anticoagulation. MRI of the lumbar spine noted done in December 2023 showing multilevel degenerative changes of the lumbar spine prominently right subarticular foraminal disc protrusion L4-5 crowding the transversing L5 right nerve roots and moderate narrowing right neural foramen with flexion to the exiting right L4 nerve root.. Will have massage therapy [facility] Medical History PAF (paroxysmal atrial fibrillation) Hepatic cyst Thyroid cancer Arthritis Vitamin D deficiency Multinodular thyroid Thyroid enlargement Acute respiratory failure with hypoxia Bacteremia Left bundle branch block Paroxysmal atrial fibrillation Atrial fibrillation with rapid ventricular response Scoliosis Hip pain Polycystic liver disease Tubular adenoma of colon Hypertension Obstructive sleep apnea History of kidney stones Hypercholesterolemia Obesity GERD (gastroesophageal reflux disease) Surgical History History of appendectomy History of colonoscopy History of lithotripsy History of removal of cyst History of thyroidectomy Family History Father Medical history unknown Mother Medical history unknown Social History Household Members: None Housing: House Do you presently have visiting nurse or other home services: No Alcohol intake: never Comment: HX SCOLIOSIS, FALL OUTSIDE 2 MONTHS AGO Patient Tobacco Use Status: Never used Tobacco e-Cigarette/Vaping Use: Never Used Second Hand Smoke Exposure: No service: No Current occupational status: retired Cognitive needs: No Hearing needs: No Vision needs: Yes Questionnaire Thrive Questionnaire Date Thrive assessed: 10/30/23 Are you currently unemployed and looking for a job?: No SANNA-7 AMB Questionnaire SANNA-7 Date SANNA - 7 assessed: 10/30/23 Source: Developed by Drs. Billy Sage, Ani Portillo, Rony Alvarez and colleagues, with an educational raymond from [employer]. Physical exam (Primary Care) Vital Signs: Last Vital Signs Pulse 66 03/22/24 14:36 BP 130/62 03/22/24 14:36 Pulse Ox 96 03/22/24 14:36 Oxygen Delivery Method Room Air 03/22/24 14:36 BMI result Body Mass Index 32.0 Tobacco/Smoking Status: Tobacco use Status Tobacco use date assessed 03/22/24 03/22/24 14:41 Patient Tobacco Use Status Never used Tobacco 03/22/24 14:41 e-Cigarette/Vaping Use Never Used 03/22/24 14:41 Thrive Assessment: Date of Thrive Assessment Date Thrive assessed 10/30/23 03/22/24 14:41 Const General: alert; No acute distress Eyes Conjunctivae: conjunctivae normal Resp Auscultation: clear to auscultation bilaterally Cardio Rate: regular rate Rhythm: regular rhythm GI Inspection: Yes normal to inspection Extrem General: Yes normal to inspection and No edema Assessment and Plan Assessment & Plan (1) Thyroid cancer: Comment: Status post thyroidectomy Dr. Franklin September 2023 received note from endocrinology low risk for recurrence keep TSH in the normal range. Code(s): C73 - Malignant neoplasm of thyroid gland Plan: Patient is being followed up by Endocrinology (2) GLENN on CPAP: Comment: Mild degree of sleep apnea. The total AHI was 9/hr and oxygen shawn was 82 %. Code(s): G47.33 - Obstructive sleep apnea (adult) (pediatric); Z99.89 - Dependence on other enabling machines and devices Plan: Continue to use the CPAP more than 4 hours a night and benefits from this (3) Obesity: Code(s): E66.9 - Obesity, unspecified Qualifiers: Obesity type: due to excess calories Obesity classification: adult class 1 (BMI 30 - 34.9) Serious obesity comorbidity presence: without serious comorbidity Body mass index: BMI 30.0-30.9 Qualified Code(s): E66.09 - Other obesity due to excess calories; Z68.30 - Body mass index [BMI]30.0-30.9, adult Plan: Discussed about diet and exercise (4) Hypercholesterolemia: Code(s): E78.00 - Pure hypercholesterolemia, unspecified Plan: Avoid fried foods, chicken skin, eggs, butter margarine, pastries and meat. Be it pork or beef they have a lot of cholesterol LDL goal of less than 130 and triglyceride of less than 150 on atorvastatin 10 mg once a day (5) GERD (gastroesophageal reflux disease): Code(s): K21.9 - Gastro-esophageal reflux disease without esophagitis Qualifiers: Esophagitis presence: without esophagitis Qualified Code(s): K21.9 - Gastro-esophageal reflux disease without esophagitis Plan: Avoid the foods that causes that usually spicy foods, tomato products, juices, coffee, soda and foods that your sensitive to. After eating do not lie down, allow 3-4 hours before in lie down. And keep the head of bed above 30 degrees to avoid the acid from going up. (6) History of kidney stones: Comment: August 2019 Code(s): Z87.442 - Personal history of urinary calculi Plan: Keep well hydrated placed on potassium citrate follows up with urology (7) Hypertension: Code(s): I10 - Essential (primary) hypertension Qualifiers: Hypertension type: essential hypertension Qualified Code(s): I10 - Essential (primary) hypertension Plan: Continue with blood pressure medication. Decrease salt intake and exercise on metoprolol 50 mg once a day diltiazem 120 mg once a day (8) Facial dermatitis: Code(s): L30.9 - Dermatitis, unspecified Orders: Orders Comprehensive Met. Panel 3 Months E78.00 - Pure hypercholesterolemia, unspecified Thyroid Stimulating Hormone 3 Months E78.00 - Pure hypercholesterolemia, unspecified Hemoglobin A1c 3 Months E78.00 - Pure hypercholesterolemia, unspecified Complete Blood Count Auto Diff 3 Months E78.00 - Pure hypercholesterolemia, unspecified Free T4 (Free Thyroxine) 3 Months E78.00 - Pure hypercholesterolemia, unspecified Lipid Panel 3 Months E78.00 - Pure hypercholesterolemia, unspecified Vitamin B12 and Folate 3 Months E78.00 - Pure hypercholesterolemia, unspecified Prostate Specific Antigen Scr 3 Months E78.00 - Pure hypercholesterolemia, unspecified Uric Acid 3 Months I48.0 - Paroxysmal atrial fibrillation Medications: New alclometasone 0.05% 1 appl topical BID PRN 15 grams 0RF itching L30.9 - Dermatitis, unspecified Coding Level of Care Code Est Pt Level 4 (90591) Diagnoses Thyroid cancer C73 GLENN on CPAP G47.33; Z99.89 Class 1 obesity due to excess calories without serious comorbidity with body mass index (BMI) of 30.0 to 30.9 in adult E66.09; Z68.30 Obesity type: due to excess calories Obesity classification: adult class 1 (BMI 30 - 34.9) Serious obesity comorbidity presence: without serious comorbidity Body mass index: BMI 30.0-30.9 Hypercholesterolemia E78.00 Gastroesophageal reflux disease without esophagitis K21.9 Esophagitis presence: without esophagitis History of kidney stones Z87.442 Essential hypertension I10 Hypertension type: essential hypertension Facial dermatitis L30.9
== END 2024-03-22 15:22 | disposition home or self-care (01) ==
PROVIDERS: PCP Internal Medicine; Visit Provider Internal Medicine
DX: C73 Malignant neoplasm of thyroid gland (principal); G47.33 Obstructive sleep apnea (adult) (pediatric); Z99.89 Dependence on other enabling machines and devices; E66.09 Other obesity due to excess calories; Z68.30 Body mass index [BMI] 30.0-30.9, adult; E78.00 Pure hypercholesterolemia, unspecified; K21.9 Gastro-esophageal reflux disease without esophagitis; Z87.442 Personal history of urinary calculi; I10 Essential (primary) hypertension; L30.9 Dermatitis, unspecified

== ENCOUNTER → 2024-03-22 14:26 | Outpatient (BNVA) | payer BC, SELFPAY | PROVIDERS: PCP Internal Medicine; Visit Provider Internal Medicine ==

== ENCOUNTER 2024-05-19 10:29 | Outpatient (REF) | payer BC, SELFPAY | END 2024-05-19 10:30 | disposition home or self-care (01) | LOC: HO.HMGCX 10:29 | PROVIDERS: PCP Internal Medicine; Visit Provider Urology | DX: N20.0 Calculus of kidney (principal) | CPT/HCPCS: 76775 ==

== ENCOUNTER 2024-06-02 11:02 | Outpatient (AMB) | payer BC, SELFPAY ==
--- NOTE | 2024-06-02 11:47 | MHC.OFFVIS ---
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 He is seen for following urologic issues - renal stones Follow-up imaging minimal stone burden Continue potassium citrate and allopurinol Medications through [facility] 12 month follow-up imaging Nephrolithiasis Current consultation for further evaluation of nephrolithiasis Imaging - 01/10 CT scan with left distal stone, bilateral scattered stones maximum 3 mm on right - 05/13 renal ultrasound bilateral 3 mm stone - 12/12 renal ultrasound 4 mm left stone - 06/13 renal ultrasound 3 mm bilateral stone - 06/14 renal ultrasound bilateral 4-5 mm stones to each side. - 01/13 CT bilateral 2 mm stones each side - 4 mm proximal right with mild hydroureteronephrosis, creatinine 1.0 - 06/15 renal ultrasound 3 mm right Renal intervention - 02/10 left ureteroscopy laser lithotripsy stent placement Stone analysis - prior calcium oxalate Therapy - fluid intake - 2 times a day 20 mEq citrate PFSH Medical History PAF (paroxysmal atrial fibrillation) Hepatic cyst Thyroid cancer Arthritis Vitamin D deficiency Multinodular thyroid Thyroid enlargement Acute respiratory failure with hypoxia Bacteremia Left bundle branch block Paroxysmal atrial fibrillation Atrial fibrillation with rapid ventricular response Scoliosis Hip pain Polycystic liver disease Tubular adenoma of colon Hypertension Obstructive sleep apnea History of kidney stones Hypercholesterolemia Obesity GERD (gastroesophageal reflux disease) Surgical History History of appendectomy History of colonoscopy History of lithotripsy History of removal of cyst History of thyroidectomy Family History Father Medical history unknown Mother Medical history unknown Social History Household Members: None Housing: House Do you presently have visiting nurse or other home services: No Alcohol intake: never Comment: HX SCOLIOSIS, FALL OUTSIDE 2 MONTHS AGO Patient Tobacco Use Status: Never used Tobacco e-Cigarette/Vaping Use: Never Used Second Hand Smoke Exposure: No service: No Current occupational status: retired Cognitive needs: No Hearing needs: No Vision needs: Yes Review of Systems Const Denies chills and Denies fever(s) Card Reports no additional complaints and Denies syncope Resp Denies cough GI Denies abdominal pain and Denies heartburn Reports as per HPI and Denies change in libido Neuro Denies syncope Psych Denies change in libido Endo Denies change in libido Physical Exam Const General: cooperative, healthy appearing, comfortable and no acute distress Orientation/consciousness: patient oriented x3 HEENT Face and sinus: Yes normal facial exam Mouth: moist mucous membranes Neck Neck: Yes normal visual inspection, Yes full ROM and Yes trachea midline Chest Chest palpation & inspection: normal inspection of the chest Resp Effort & Inspection: normal respiratory effort, able to speak in complete sentences and no respiratory distress GI Inspection: Yes normal to inspection Back/Spine/Pelvis Cervical Spine: normal cervical lordosis Thoracic/Lumbar Spine: thoracic and lumbar spine normal to inspection Skin General skin exam: no rashes or lesions noted Neuro General: patient oriented x3, gait normal, tone normal and moves all extremities Extrem General: Yes normal to inspection and Yes capillary refill normal Results AMB Urinalysis, Automated UA Leukoctes 0 Mary Grace/uL Last Edit by Davina Ferraro CMA on 06/02/24 12:03 UA Nitrite Negative Last Edit by Davina Ferraro CMA on 06/02/24 12:03 UA Urobilinogen 0.2 mg/dL Last Edit by Davina Ferraro CMA on 06/02/24 12:03 UA Protein 0 mg/dL Last Edit by Davina Ferraro CMA on 06/02/24 12:03 UA pH 7.0 Last Edit by Davina Ferraro CMA on 06/02/24 12:03 UA Blood 0 Chang/uL Last Edit by Davina Ferraro CMA on 06/02/24 12:[address] 1.020 Last Edit by Davina Ferraro CMA on 06/02/24 12:03 UA Ketone Negative Last Edit by Davina Ferraro CMA on 06/02/24 12:03 UA Bilirubin 0 mg/dL Last Edit by Davina Ferraro CMA on 06/02/24 12:03 UA Glucose 0 mg/dL Last Edit by Davina Ferraro CMA on 06/02/24 12:03 Results Reviewed Results Reviewed: Laboratory Last Values Urine pH (Auto) 7.0 06/02/24 12:[address] (Auto) 1.020 06/02/24 12:01 Urine Protein (Auto) 0 mg/dL 06/02/24 12:01 Glucose (UA)(Auto) 0 mg/dL 06/02/24 12:01 Urine Ketones (Auto) Negative 06/02/24 12:01 Urine Blood (Auto) 0 Chang/uL 06/02/24 12:01 Urine Nitrite (Auto) Negative 06/02/24 12:01 Urine Bilirubin (Auto) 0 mg/dL 06/02/24 12:01 Urine Urobilinogen (Auto) 0.2 mg/dL 06/02/24 12:01 Leukocyte Esterase (Auto) 0 Mary Grace/uL 06/02/24 12:01 Assessment & Plan Assessment & Plan (1) Nephrolithiasis: Code(s): N20.0 - Calculus of kidney Category: Medical Plan Twelve month follow-up imaging Orders: Orders AMB Urinalysis Automated Today Z13.9 - Encounter for screening, unspecified US renal BI 12 Months N20.0 - Calculus of kidney Medications: Changed From potassium citrate ER 20 mEq PO BID To potassium citrate ER 20 mEq (2 x 10 mEq (1,080 mg)) PO BID 90 days 360 tabs 3RF Refilled allopurinol 100 mg PO DAILY 90 days 90 tabs 3RF N20.0 - Calculus of kidney Patient Instructions: Imaging studies, laboratory and physical exam results were discussed and reviewed in detail. No major barriers to patient understanding were identified. An opportunity to ask questions regarding the treatment plan was provided. All questions were answered. The patient expressed understanding and agreement with the above treatment plan. The patient is aware they should contact our office by phone for worsening of their current condition or the appearance of new urologic symptoms. Compliance is encouraged with any medications and followup testing that is ordered. It is a privilege to participate in the urologic care of your patient. If you have any questions or concerns regarding treatment for the above conditions, or other urologic issues, please do not hesitate to contact me. The office telephone contact is [phone]. This note is constructed using voice recognition software. While every effort has been made to ensure accuracy towel cabinet repairer errors may have been included. Yours sincerely, Dr Derek Darden MD, [facility] - Urology Providers of Expert, Compassionate Care for the Genitourinary System Coding Level of Care Code Est Pt Level 3 (59928) Diagnoses Nephrolithiasis N20.0
== END 2024-06-02 12:20 | disposition home or self-care (01) ==
PROVIDERS: PCP Internal Medicine; Visit Provider Urology
DX: N20.0 Calculus of kidney (principal); Z13.9 Encounter for screening, unspecified
CPT/HCPCS: 99213

== ENCOUNTER → 2024-06-02 11:02 | Outpatient (BNVA) | payer BC, SELFPAY | PROVIDERS: PCP Internal Medicine; Visit Provider Urology | DX: N20.0 Calculus of kidney (principal) | CPT/HCPCS: 81003 ==

== ENCOUNTER 2024-06-29 13:33 | Outpatient (AMB) | payer BC, SELFPAY ==
[2024-06-29 13:36] VITALS: BP 128/62; PULSE 62; BMI 33.1
--- NOTE | 2024-06-29 13:36 | MHC.OFFVIS ---
Vital Signs 06/29/24 13:36 Height 6 ft 3 in Weight 264 lb 8.875 oz BMI 33.1 BP 128/62 Blood Pressure Location Lt brachial Position Sitting Pulse 62 Pulse Source Pulse Oximeter Intake Visit Reasons: Thyroid Cancer f/u Intake Note: Patient present today for Thyroid Cancer office visit. 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 Per notes tumor was invading the strap muscles with macroscopic extrathyroidal extension. There was also positive posterior margin. ASHER initial high-risk of recurrence, AJCC stage 2. (T3 B) , currently ASHER indeterminate response to therapy. History of PTC in detail Over 20 years ago: W as initially diagnosed with multinodular thyroid over 20 years ago at the [facility] [place]. He states he had a R hemithyroidectomy due to a toxic nodule, and reports no cancer was identified. He has remained euthyroid off any thyroid hormone supplementation since that time. 2021: His PCP ordered a thyroid US in 2021 which revealed a 1.5 cm LMP thyroid nodule. He was subsequently referred to Endocrinology. 02/14/2022 he underwent FNA biopsy of his LMP 1.5 cm thyroid nodule with cytology Suspicious for malignancy (bethesda category V). 05/10/2022: He was referred for a completion thyroidectomy and underwent this 05/10/2022. 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 There was no lymphatic invasion, no angioinvasion and no perineural invasion. There was macroscopic extrathyroidal extension identified as the tumor was invading the strap muscles. There was also a positive posterior margin. Per my assessment this is AJCC stage II (T3 B), ASHER initial high-risk of recurrence. (note: However when I reviewed his notes from [facility], they labeled him as ASHER low risk of recurrence in AJCC stage I, with no gross extrathyroidal extension and negative margins, I can not find the pathology report, we will obtain) 08/21/2022: He received I131 treatment with 152 mCi 08/21/2022 via withdrawal method. Labs 08/19/2022 TSH 62.8, TG <0.4 and TGAB 185. Post-treatment WBS revealed foci of radioiodine uptake in the bilateral thyroid bed. There was also increased radiotracer uptake within multiple hepatic cysts in the right and left hepatic lobes that was thought to be passive diffusion. These appeared unchanged from a prior CT. 07/02/2022 with TSH <0.05, TG <0.1 and TGAB 368. 09/12/2023: TSH 0.07, free T4 1.22, TG 1.1, TG antibody 24 September 2023: Evaluated by Dr. Renetta Maynard at [facility],, in office neck ultrasound did not show any abnormal nodes or masses suspicious for tumor recurrence. She did comment that likely the bilateral thyroid tissue noted in the thyroid bed on uptake and scan was likely benign node since they do not show increased vascular flow expected for a thyroid remnant with thyroiditis or thyroid cancer recurrence. Per Dr. 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 (note: However when I reviewed his notes from [facility], they labeled him as ASHER low risk of recurrence in AJCC stage I, with no gross extrathyroidal extension and negative margins, I can not find the pathology report, we will obtain) 10/31/2023: TSH 0.64, free T4 1.13 Currently patient denies any symptoms of hyperthyroidism or hypothyroidism. He is on levothyroxine 125 mcg daily, good adherence, appropriate administration Denies any compressive symptoms but he does have a coughing sensation plus discomfort associated with the it that has been stable since surgery, no worsening symptoms. Physical exam General: sitting comfortably in no acute distress HEENT: normocephalic/atraumatic Neck: supple, symmetrical, Cardiac: normal heart sounds Pulm: normal breath sounds B/L, no added breath sounds Abd: not distended, no tenderness Extremities: no edema, no signs of myxedema Neuro: AAO x3, Speech: normal, no facial droop, moving all 4 extremities Laboratory Tests 04/26/20 06/26/21 08/27/21 08:05 15:42 14:57 TSH 2.16 3.97 1.67 Free T4 1.05 0.91 Thyroglobulin Thyroglobulin LC-MS/MS Thyroglobulin Antibody 12/19/21 07/02/22 07/02/22 13:17 08:35 08:35 TSH 2.11 0.05 L Free T4 1.05 1.93 H Thyroglobulin <0.1 L Thyroglobulin LC-MS/MS <0.4 Thyroglobulin Antibody 368 H 443 H 08/19/22 08/19/22 09/11/22 10:42 10:42 12:22 TSH 62.80 H 0.12 L Free T4 < 0.42 L 1.91 H Thyroglobulin 0.2 L Thyroglobulin LC-MS/MS <0.4 Thyroglobulin Antibody 185 H 245 H 11/12/22 05/01/23 07/02/23 15:29 14:46 14:06 TSH 0.01 L 0.02 L 0.01 L Free T4 1.51 1.28 1.59 Thyroglobulin Thyroglobulin LC-MS/MS <0.4 Thyroglobulin Antibody 34 H 08/13/23 10/31/23 11:05 10:14 TSH 0.02 L 0.64 Free T4 1.45 1.13 Thyroglobulin Thyroglobulin LC-MS/MS Thyroglobulin Antibody CT ABDOMEN AND PELVIS WITHOUT CONTRAST 12/28/23 CLINICAL INFORMATION: Right flank pain COMPARISON: CT abdomen pelvis 01/07/2021. TECHNIQUE: Multidetector volumetric imaging was performed from the superior aspect of the liver through the pubic symphysis. Sagittal and coronal reformatted images were obtained on the technologist's workstation. This CT examination was performed using dose optimization techniques as appropriate, variously including the following: *Automated exposure control *Adjustment of mA and/or kV according to patient size (this includes techniques or standardized protocols for targeted exams where dose is matched to indication/reason for exam; i.e. extremities or head) *Use of iterative reconstruction technique DLP: 867 mGy-cm FINDINGS: LUNG BASES: Bilateral calcified pleural plaques. LIVER, GALLBLADDER, AND BILIARY TREE: Multiple rounded low density foci are again noted within the liver unchanged compared with 01/07/2021 most likely representing benign, simple cyst warranting no additional imaging follow-up on the basis of this examination. The gallbladder is unremarkable with no evidence of radiopaque gallstones, gallbladder wall thickening, or obvious pericholecystic inflammatory changes. PANCREAS: Unremarkable. SPLEEN: Unremarkable. ADRENAL GLANDS: Unremarkable. KIDNEYS AND URETERS: A 4 mm x 2 mm calculus is present in the right ureter at the level of S2-S3. Series 3 image 66) Moderate proximal right ureterectasis and moderate right hydronephrosis noted. Mild right perinephric inflammatory changes. No right perinephric fluid collections. Left renal calculi: 2 mm superior pole, 2 mm and 2 mm interpolar and 2 mm inferior pole calculi. No left-sided hydronephrosis or perinephric inflammatory changes. BLADDER: Moderate physiologic distention. GASTROINTESTINAL TRACT: The appendix is not visualized. No inflammatory changes are present adjacent to the cecum. Normal appearance of the terminal ileum. No free intraperitoneal fluid or gas collections. No small bowel dilatation. Normal appearance of the stomach and duodenum. ABDOMINAL WALL: No significant hernia is appreciated. LYMPH NODES: Normal. VASCULAR: Mild scattered calcific atherosclerosis PELVIC VISCERA: Unremarkable. OSSEOUS STRUCTURES: Multilevel chronic cervical lumbar spondylosis. No vertebral body compression deformities. CT/CT abdomen pelvis wo IV con IMPRESSION: 1. Single obstructing 4 mm x 2 mm calculus within the distal right ureter at the level of S2-S3 with associated moderate right-sided hydronephrosis and proximal right ureterectasis. 2. Multiple punctate nonobstructing calculi within the left kidney. No left-sided hydronephrosis. 3. 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 US THYROID 07/31/21 CLINICAL INFORMATION: Nontoxic goiter, unspecified COMPARISON: CT neck 09/03/2012. TECHNIQUE: Linear transducer grayscale and color Doppler examination with attention to the region of the thyroid. FINDINGS: SIZE: Measurements of the solitary left thyroid lobe and nodules are given in sagittal, anteroposterior and transverse dimensions respectively. Right Thyroid Lobe: Surgically absent. Left Thyroid Lobe: 5.5 x 1.9 x 2.6 cm, volume 14.2 mL. Parenchyma: The gland echotexture is heterogeneous. Thyroid vascularity is normal. Isthmus: Surgically absent. Estimated total number of nodules greater than or equal to 1 cm: 1. Grommet Machine Operator nodules are described as follows: 1. Location: Left superior. Size: 0.6 x 0.5 x 0.6 cm, volume 0.08 mL. Nodule characteristics: Composition: Spongiform (0). Echogenicity: Anechoic (0). Shape: Not taller than wide (0). Margins: Smooth (0). Echogenic Foci: None (0). ACR TI-RADS total points: 0 ACR TI-RADS category: 1 2. Location: Left mid medial. Size: 1.5 x 1.4 x 1.3 cm, volume 1.34 mL. Nodule characteristics: Composition: Solid (2). Echogenicity: Very hypoechoic (3). Shape: Taller than wide (3). Margins: Smooth (0). Echogenic Foci: Punctate echogenic foci (3). ACR TI-RADS total points: 11 ACR TI-RADS category: 5 3. Location: Left inferior lateral. Size: 0.5 x 0.6 x 0.6 cm, volume 0.09 mL. Nodule characteristics: Composition: Solid (2). Echogenicity: Hyperechoic (1). Shape: Not taller than wide (0). Margins: Ill-defined (0). Echogenic Foci: Punctate echogenic foci (3). ACR TI-RADS total points: 6 ACR TI-RADS category: 4 NODES: There is a left level 3 lymph node present measuring approximately 1.2 x 0.4 x 0.6 cm in size which has smooth margins and normal fatty hilum without evidence of cortical thickening or lobulation. US/US thyroid IMPRESSION: Left mid thyroid 1.5 cm maximum dimension nodule with TI-RADS Category 5 for which fine-needle aspiration biopsy is recommended. [facility] Medical History PAF (paroxysmal atrial fibrillation) Hepatic cyst Thyroid cancer Arthritis Vitamin D deficiency Multinodular thyroid Thyroid enlargement Acute respiratory failure with hypoxia Bacteremia Left bundle branch block Paroxysmal atrial fibrillation Atrial fibrillation with rapid ventricular response Scoliosis Hip pain Polycystic liver disease Tubular adenoma of colon Hypertension Obstructive sleep apnea History of kidney stones Hypercholesterolemia Obesity GERD (gastroesophageal reflux disease) Surgical History History of appendectomy History of colonoscopy History of lithotripsy History of removal of cyst History of thyroidectomy Family History Father Medical history unknown Mother Medical history unknown Social History Household Members: None Housing: House Do you presently have visiting nurse or other home services: No Alcohol intake: never Comment: HX SCOLIOSIS, FALL OUTSIDE 2 MONTHS AGO Patient Tobacco Use Status: Never used Tobacco e-Cigarette/Vaping Use: Never Used Second Hand Smoke Exposure: No service: No Current occupational status: retired Cognitive needs: No Hearing needs: No Vision needs: Yes Physical Exam Vital Signs: Last Vital Signs Pulse 62 06/29/24 13:36 BP 128/62 06/29/24 13:36 BMI result Body Mass Index 33.1 Assessment & Plan Assessment & Plan (1) History of thyroid cancer: Code(s): Z85.850 - Personal history of malignant neoplasm of thyroid Category: Medical Plan: 69 YO M with PMHx recent PE due to COVID-19 infection now on xarelto, who is seen in F/U for 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 Per notes tumor was invading the strap muscles with macroscopic extrathyroidal extension. There was also positive posterior margin. ASHER initial high-risk of recurrence, AJCC stage 2. 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 Thyroglobulin antibodies elevation gets explained with Luz's thyroiditis. Fortunately these have down trended and most recently June 2023 his thyroglobulin antibody level was 34 down from 368 back in 2021. His unstimulated thyroglobulin levels have been less than 0.4. This is all consistent with ASHER indeterminate response based on that detectable even though downtrending thyroglobulin antibody, however given history of Luz's thyroiditis I would disregard those. Labs from August 2023 showed TG level of 1.1, which given that he has had a 2 stage thyroidectomy is not surprising. I would again classify him as ASHER indeterminate response to therapy. We will continue to trend his TG antibody levels. Ultrasound neck September 2023 done in office at [facility] was not concerning of any recurrence of disease. Given indeterminate response to therapy TSH goal of 0.1-0.5. In indeterminate response, 15% to 20% we will have structural disease identified during follow-up, however in the remainder of the nonspecific changes are either stable or resolved, less than 1% have disease specific If his TG antibodies continue to decline or remained stable I would read classify him as ASHER excellent response to therapy. Plan: -continue levothyroxine 125 mcg daily -check TSH, free T4, TG and TG antibody levels -ordered ultrasound of the neck -follow up in 3 months Plan I spent 30 minutes in reviewing the record, seeing the patient and documenting in the medical record. Orders: Orders US soft tiss head and/or neck Today Z85.850 - Personal history of malignant neoplasm of thyroid Thyroglobulin Today C73 - Malignant neoplasm of thyroid gland, Z85.850 - Personal history of malignant neoplasm of thyroid Thyroglobulin Antibodies Today C73 - Malignant neoplasm of thyroid gland, Z85.850 - Personal history of malignant neoplasm of thyroid Thyroid Stimulating Hormone Today C73 - Malignant neoplasm of thyroid gland, Z85.850 - Personal history of malignant neoplasm of thyroid Free T4 (Free Thyroxine) Today C73 - Malignant neoplasm of thyroid gland, Z85.850 - Personal history of malignant neoplasm of thyroid Patient Instructions: Continue Levothyroxine 125 mcg daily Do blood work today , we will reach out with result sto let you know if the dose needs to be adjusted Do neck ultrasound , someone will call you to schedule this Coding Level of Care Code Est Pt Level 4 (73950) Complex EM visit Add On G2211 Diagnoses History of thyroid cancer Z85.850 Time Spent (min) 30
== END 2024-06-29 14:59 | disposition home or self-care (01) ==
PROVIDERS: PCP Internal Medicine; Visit Provider Student in an Organized Health Care Education/Training Program
DX: Z85.850 Personal history of malignant neoplasm of thyroid (principal)
CPT/HCPCS: 99214

== ENCOUNTER 2024-06-29 13:33 | Outpatient (REF) | payer BC, SELFPAY ==
[2024-06-29 15:16] LABS: MANUAL DIFF FLAG NO
[2024-06-29 15:25] LABS: Basophils Percent Auto 0.8 % (0-2); Eosinophils Absolute Auto 0.3 X10*3/uL (0.0-0.4); Eosinophils Percent Auto 5.2 % (0-4); Hematocrit 45.4 % (42.0-52.0); Hemoglobin 15.2 g/dl (14.0-18.0); Imm Gran Abs Auto 0.02 X10*3/uL (0.00-0.03); Imm Gran Pct Auto 0.4 % (0.0-0.4); Mean Corpuscular HGB Conc 33.5 g/dl (31.0-36.0); Mean Corpuscular Volume 92.7 fL (80.0-98.0); Mean Platelet Volume 9.6 fL (9.4-12.4); Monocytes Absolute Auto 0.5 X10*3/uL (0.1-1.2); Monocytes Percent Auto 10.7 % (2-11); Neutrophils Absolute Auto 3.1 x10*3/uL (2.0-8.3); Neutrophils Percent Auto 62.9 % (45-73); Platelet Count 170 X10*3/uL (160-400)
[2024-06-29 16:06] LABS: Uric Acid 5.1 mg/dL (3.4-7.0)
[2024-06-29 16:11] LABS: Estimated Average Glucose 105 mg/dL; Hemoglobin A1c % 5.3 % (<6.0)
[2024-06-29 16:14] LABS: Alanine Aminotransferase 32 U/L (0-40); Albumin Level 4.1 g/dL (3.5-5.0); Alkaline Phosphatase 85 U/L (39-117); Anion Gap 9 (12-20); Aspartate Amino Transferase 24 U/L (5-37); Bilirubin Total 1.1 mg/dL (0.0-1.0); Blood Urea Nitrogen 15 mg/dL (9-16); Calcium 9.1 mg/dL (8.4-10.2); Carbon Dioxide 27 mmol/L (22-29); Chloride 111 mmol/L (96-108); Cholesterol 172 mg/dL (<200); Estimated Glomerular Filt Rate > 60; Glucose Random 93 mg/dL (60-115); HDL Cholesterol 46 mg/dL (>40); LDL Cholesterol Calculated 105 mg/dL (<100); Potassium 4.2 mmol/L (3.3-5.1); Sodium 143 mmol/L (135-145); Triglycerides 105 mg/dL (<150)
[2024-06-29 16:29] LABS: Free T4 (Free Thyroxine) 1.22 ng/dL (0.71-1.85); Thyroid Stimulating Hormone 3.11 uIU/mL (0.32-4.0)
[2024-06-29 16:40] LABS: Folate 13.5 ng/mL (> or = 4.0); Prostate Specific Antigen Scr 2.75 ng/mL (<0.05-4.0); Vitamin B12 323 pg/mL (200-900)
--- OUTSIDE RECORDS SUMMARY | 2024-06-29 18:46 | XMS_ITS ---
Author Name [facility] [place] [facility] [place] Address [address] [place] [address] Care Team Providers Care Early Childhood Education Coordinator Name Role Phone [place] Primary Care Provider Liberty wilkes Insurance Providers: All historical and current Section Date Range: From patient's date of to the date document was created. This section includes the names of all active insurance providers for the patient. Insurance Provider Type of Coverage Plan Name Start of Policy Coverage End of Policy Coverage Group Number Member ID Insurance Provider's Telephone Number Policy Blankenship's Name Patient's Relationship to Policy Blankenship ANTHEM [place]BS [place] FEDERAL PREFERRED PROVIDER ORGANIZAT ION (PPO) BASIC FAMIL Y Jun 24, 2009 [id number] [phone] ABHILASH GARAY PATIENT [place] PREFERRED PROVIDER ORGANIZAT ION (PPO) FEP BASIC FAM Jun 24, 2009 [id number] [phone] ABHILASH GARAY PATIENT ANTHEM [place] PREFERRED PROVIDER ORGANIZAT ION (PPO) FEP BASIC FAM Jun 24, 2009 [id number] [phone] ABHILASH GARAY PATIENT [place] PREFERRED PROVIDER ORGANIZAT ION (PPO) FEP BASIC FAM Jun 24, 2009 [id number] [phone] ABHILASH GARAY PATIENT [place] PREFERRED PROVIDER ORGANIZAT ION (PPO) FEP BASIC FAM Jun 24, 2009 [id number] [phone] ABHILASH GARAY PATIENT [place]BS [place] PREFERRED PROVIDER ORGANIZAT ION (PPO) BASIC FAMIL Y Jun 24, 2009 [id number] ABHILASH GARAY PATIENT [place] PREFERRED PROVIDER ORGANIZAT ION (PPO) BASIC FAMIL Y Jun 24, 2009 [id number] ABHILASH GARAY PATIENT [place] PREFERRED PROVIDER ORGANIZAT ION (PPO) BASIC FAMIL Y Jun 24, 2009 [id number] [phone] ABHILASH GARAY PATIENT [place] F[place] DENTAL DENTAL INSURANCE BASIC Jul 12, 2009 [id number] ABHILASH GARAY PATIENT [place] PREFERRED PROVIDER ORGANIZAT ION (PPO) BASIC FAMIL Y Jun 24, 2009 [id number] [phone] ABHILASH GARAY PATIENT [place] FEP ([id number]) PRESCRIPT ION FEPRX Jun 24, 2009 [id number] [phone] ABHILASH GARAY PATIENT [place] FEP BCBS PRESCRIPT ION [place] FEPRX PLAN Nov 21, 2021 [id number] ABHILASH GARAY PATIENT [place] FEPRX PLAN PRESCRIPT ION CAREM ARK FEPRX Nov 21, 2021 [id number] ABHILASH GARAY PATIENT [place] BCBS PRESCRIPT ION FEP CAREM ARK Nov 21, 2021 [id number] ABHILASH GARAY PATIENT [place] BCBS PRESCRIPT ION FEP Jun 23, 2010 [id number] ABHILASH GARAY PATIENT MEDICARE (WN) MEDICARE () PART A Feb 22, 2020 PART A [id number] ABHILASH GARAY PATIENT MEDICARE ([facility] MEDICARE () PART A Feb 22, 2020 PART A [id number] ABHILASH GARAY PATIENT MEDICARE (WNR) MEDICARE (M) PART A Feb 22, 2020 PART A [id number] [phone] ABHILASH GARAY PATIENT MEDICARE (WNR) MEDICARE (M) PART A Feb 22, 2020 PART A [id number] [phone] ABHILASH GARAY PATIENT MEDICARE (WNR) MEDICARE (M) PART A Feb 22, 2020 PART A [id number] [phone] ABHILASH GARAY PATIENT Selected Encounter This section includes the information on record at DC for the Encounter. Date/Time Encounter Type Encounter Description Reason Pro vider Source Jul 18, 2023 12:00 PM Outpatient Encounter COMMUNITY CARE CONSULT IHE Encounter Template Text not used by DC Plan of Treatment: Future Appointments (+ 6 months) and Future Tests (+/- 45 days) The Plan of Treatment section includes future care activities for the [facility] This section includes future appointments and future orders which are active, pending or scheduled. Future Appointments This section includes appointments that were scheduled to occur 6 months from the date of the Encounter, up to a maximum of 20 appointments. The data comes from all [place] treatment facilities. Appointment Date/Time Appointment Type Appointme nt Facility Name Jul 24, 2023 01:00 PM AMBULATORY - MEDICINE [place] [facility] [place] [facility] Jul 28, 2023 11:00 AM AMBULATORY - MEDICINE [place] [facility] [place] [facility] Jul 31, 2023 01:00 PM AMBULATORY - MEDICINE [place] [facility] [place] [facility] Aug 01, 2023 11:00 AM AMBULATORY - MEDICINE DC [facility] [place] [facility] Aug 04, 2023 11:00 AM AMBULATORY - MEDICINE DC [facility] [place] [facility] Aug 07, 2023 01:00 PM AMBULATORY - MEDICINE DC [facility] [place] [facility] Aug 12, 2023 11:00 AM AMBULATORY - MEDICINE DC [facility] [place] [facility] Aug 14, 2023 01:00 PM AMBULATORY - MEDICINE [place] [facility] [place] [facility] Aug 18, 2023 11:00 AM AMBULATORY - MEDICINE [place] [facility] [place] [facility] Aug 21, 2023 01:00 PM AMBULATORY - MEDICINE [facility] [place] [facility] Aug 22, 2023 08:00 AM AMBULATORY - MEDICINE [facility] Aug 25, 2023 11:00 AM AMBULATORY - MEDICINE [place] [facility] [place] [facility] Aug 28, 2023 01:00 PM AMBULATORY - MEDICINE [place] [facility] [place] [facility] Sep 01, 2023 11:00 AM AMBULATORY - MEDICINE [place] [facility] [place] [facility] Sep 04, 2023 01:00 PM AMBULATORY - MEDICINE [place] [facility] [place] [facility] Sep 08, 2023 11:00 AM AMBULATORY - MEDICINE [place] [facility] [place] [facility] Sep 11, 2023 01:00 PM AMBULATORY - MEDICINE [facility] [place] [facility] Sep 16, 2023 11:00 AM AMBULATORY - MEDICINE [facility] [place] [facility] Sep 29, 2023 11:00 AM AMBULATORY - MEDICINE [facility] [place] [facility] Oct 02, 2023 01:00 PM AMBULATORY - MEDICINE [facility] [place] [facility] Social History: Smoking Status (Most current) and Tobacco Use (All prior to encounter date) This section includes the most current, and the historical, smoking and tobacco- related health factors from the [place] facility where the Encounter took place. Current Smoking Status This section includes the most current smoking, or tobacco-related health factor, from the [place] facility where the Encounter took place. Date/Time Current Smoking Status Comment Facil [facility] Apr 08, 2023 09:12 AM VA-TOBACCO NEVER USED DC [facility] Tobacco Use History This section includes a history of the smoking, or tobacco-related health factors, that were collected on or before the date of the Encounter. The data comes from the [place] facility where the Encounter took place. Date/Time Smoking Status/Tobacco Use Comment F acjaved Aug 09, 2021 09:20 AM VA-TOBACCO NEVER USED [facility] Encounter Notes: All associated encounter notes This section contains the clinical notes associated to the Encounter. Date/Time Encounter Note(s) Provider Source Jul 18, 2023 12:00 PM NONVA CONSULT: LOCAL TITLE: COMMUNITY CARE-CONSULT RESULT NOTE STANDARD TITLE: NONVA CONSULT DATE OF NOTE: JUL 18, 2023@12:00 ENTRY DATE: JUL 28, 2023@14:24:14 AUTHOR: IFEANYI PARKER COSIGNER: URGENCY: STATUS: COMPLETED VistA Imaging - Scanned Document SCANNED DOCUMENT SIGNATURE NOT REQUIRED Electronically Filed: 07/28/2023 by: IFEANYI BOYLE [facility]
--- OUTSIDE RECORDS SUMMARY | 2024-06-29 18:46 | XMS_ITS ---
Author Name [facility] [place] [facility] [place] [facility] [place] Address [address] [place] [address] Care Team Providers Care Corporate Strategy Intern Name Role Phone ABDIRAHMAN LAKE Primary Care [...] BASIC FAMIL Y Jun 24, 2009 112 [id number] [phone] ABHILASH GARAY PATIENT ANTHEM [place]BS [place] FEP PREFERRED PROVIDER ORGANIZAT ION (PPO) FEP BASIC FAM Jun 24, 2009 112 [id number] [phone] ABHILASH GARAY PATIENT ANTHEM BCBS [place] F[place] PREFERRED PROVIDER ORGANIZAT ION (PPO) FEP BASIC FAM Jun 24, 2009 112 [id number] [phone] ABHILASH GARAY PATIENT ANTHEM [place] PREFERRED PROVIDER ORGANIZAT ION (PPO) FEP BASIC FAM Jun 24, 2009 112 [id number] [phone] ABHILASH GARAY PATIENT [place] F[place] PREFERRED PROVIDER ORGANIZAT ION (PPO) FEP BASIC FAM Jun 24, 2009 112 [id number] [phone] ABHILASH GARAY PATIENT BCBS [place] FEP PREFERRED PROVIDER ORGANIZAT ION (PPO) BASIC FAMIL Y Jun 24, 2009 [id number] ABHILASH GARAY PATIENT [place] PREFERRED PROVIDER ORGANIZAT ION (PPO) BASIC FAMIL Y Jun 24, 2009 112 [id number] [phone] ABHILASH GARAY PATIENT [place] FEP PREFERRED PROVIDER ORGANIZAT ION (PPO) BASIC FAMIL Y Jun 24, 2009 112 [id number] [phone] ABHILASH GARAY PATIENT [place] FEP DENTAL DENTAL INSURANCE BASIC Jul 12, 2009 DENTAL [id number] [phone] ABHILASH GARAY PATIENT [place] FEP PREFERRED PROVIDER ORGANIZAT ION (PPO) BASIC FAMIL Y Jun 24, 2009 [id number] ABHILASH GARAY PATIENT [place] FEP ([id number]) PRESCRIPT ION FEPRX Jun 24, 2009 [id number] [phone] ABHILASH GARAY PATIENT [place] FEP BCBS PRESCRIPT ION CAREM ARK FEPRX PLAN Nov 21, 2021 [id number] ABHILASH GARAY PATIENT [place] FEPRX PLAN PRESCRIPT ION CAREM ARK FEPRX Nov 21, 2021 [id number] ABHILASH GARAY PATIENT [place]-F EP BCBS PRESCRIPT ION FEP CAREM ARK Nov 21, 2021 [id number] ABHILASH GARAY PATIENT [place]-F EP BCBS PRESCRIPT ION FEP Jun 23, 2010 [id number] ABHILASH GARAY PATIENT MEDICARE (WN) MEDICARE () PART A Feb 22, 2020 PART A [id number] ABHILASH GARAY PATIENT MEDICARE ([facility]) MEDICARE () PART A Feb 22, 2020 PART A [id number] ABHILASH GARAY PATIENT MEDICARE (WNR) MEDICARE (M) PART A Feb 22, 2020 PART A [id number] ABHILASH GARAY PATIENT MEDICARE (WNR) MEDICARE (M) PART A Feb 22, 2020 PART A [id number] ABHILASH GARAY PATIENT MEDICARE (WNR) MEDICARE (M) PART A Feb 22, 2020 PART A [id number] [phone] ABHILASH GARAY PATIENT Selected Encounter This section includes the information on record at [place] for the Encounter. Date/Time Encounter Type Encounter Description Reason Pro vider Source Jul 04, 2023 12:00 PM Outpatient Encounter COMMUNITY CARE CONSULT IHE Encounter Template Text not used by MS Plan of Treatment: Future Appointments (+ 6 months) and Future Tests (+/- 45 days) The Plan of Treatment section includes future care activities for the patient [facility] [place] [facility] This section includes future appointments and future orders which are active, pending or scheduled. Future Appointments This section includes appointments that were scheduled to occur 6 months from the date of the Encounter, up to a maximum of 20 appointments. The data comes from all [place] treatment facilities. Appointment Date/Time Appointment Type Appointme nt Facility Name Jul 10, 2023 01:00 PM AMBULATORY - MEDICINE [place] [facility] [place] [facility] Jul 14, 2023 11:00 AM AMBULATORY - MEDICINE [place] [facility] [place] [facility] Jul 17, 2023 01:00 PM AMBULATORY - MEDICINE [place] [facility] [place] [facility] Jul 24, 2023 01:00 PM AMBULATORY - MEDICINE [place] [facility] [place] [facility] Jul 28, 2023 11:00 AM AMBULATORY - MEDICINE [place] [facility] [facility] Jul 31, 2023 01:00 PM AMBULATORY - MEDICINE [place] [facility] [place] [facility] Aug 01, 2023 11:00 AM AMBULATORY - MEDICINE [place] [facility] [place] [facility] Aug 04, 2023 11:00 AM AMBULATORY - MEDICINE [place] [facility] [place] [facility] Aug 07, 2023 01:00 PM AMBULATORY - MEDICINE [place] [facility] [place] [facility] Aug 12, 2023 11:00 AM AMBULATORY - MEDICINE [place] [facility] [place] [facility] Aug 14, 2023 01:00 PM AMBULATORY - MEDICINE [place] [facility] [place] [facility] Aug 18, 2023 11:00 AM AMBULATORY - MEDICINE [place] [facility] [place] [facility] Aug 21, 2023 01:00 PM AMBULATORY - MEDICINE [place] [facility] [place] [facility] Aug 22, 2023 08:00 AM [facility] Aug 25, 2023 11:00 AM AMBULATORY - MEDICINE [place] [facility] [place] [facility] Aug 28, 2023 01:00 PM AMBULATORY - MEDICINE [place] [facility] [place] [facility] Sep 01, 2023 11:00 AM AMBULATORY - MEDICINE [place] [facility] [place] [facility] Sep 04, 2023 01:00 PM AMBULATORY - MEDICINE [place] [facility] [place] [facility] Sep 08, 2023 11:00 AM AMBULATORY - MEDICINE [place] [facility] [place] [facility] Sep 11, 2023 01:00 PM AMBULATORY - MEDICINE [place] [facility] [place] [facility] Social History: Smoking Status (Most current) and Tobacco Use (All prior to encounter date) This section includes the most current, and the historical, smoking and tobacco- related health factors from the [place] facility where the Encounter took place. Current Smoking Status This section includes the most current smoking, or tobacco-related health factor, from the [place] facility where the Encounter took place. Date/Time Current Smoking Status Comment Facil ity Apr 08, 2023 09:12 AM VA-TOBACCO NEVER USED [facility] Tobacco Use History This section includes a history of the smoking, or tobacco-related health factors, that were collected on or before the date of the Encounter. The data comes from the [place] facility where the Encounter took place. Date/Time Smoking Status/Tobacco Use Comment F acjaved Aug 09, 2021 09:20 AM VA-TOBACCO NEVER USED [facility] Encounter Notes: All associated encounter notes This section contains the clinical notes associated to the Encounter. Date/Time Encounter Note(s) Provider Source Jul 04, 2023 12:00 PM NONVA CONSULT: LOCAL TITLE: COMMUNITY CARE-CONSULT RESULT NOTE STANDARD TITLE: NONVA CONSULT DATE OF NOTE: JUL 04, 2023@12:00 ENTRY DATE: JUL 22, 2023@08:04:44 AUTHOR: DAHIANA MCMILLAN EXP COSIGNER: URGENCY: STATUS: COMPLETED VistA Imaging - Scanned Document SCANNED DOCUMENT SIGNATURE NOT REQUIRED Electronically Filed: 07/22/2023 by: DAHIANA JANG [facility]
--- OUTSIDE RECORDS SUMMARY | 2024-06-29 18:46 | XMS_ITS | Encounter Summary ---
Author Name [facility] [place] Address [address] [place] [address] Care Team Providers Care Business Services Representative Name Role Phone ABDIRAHMAN LAKE Primary Care [...] BASIC FAMIL Y Jun 24, 2009 112 [id number] [phone] ABHILASH GARAY PATIENT ANTHEM BCBS [place] FEP PREFERRED PROVIDER ORGANIZAT ION (PPO) FEP BASIC FAM Jun 24, 2009 112 [id number] [phone] ABHILASH GARAY PATIENT ANTHEM [place] F[place] PREFERRED PROVIDER ORGANIZAT ION (PPO) FEP BASIC FAM Jun 24, 2009 112 [id number] [phone] ABHILASH GARAY PATIENT [place] PREFERRED PROVIDER ORGANIZAT ION (PPO) FEP BASIC FAM Jun 24, 2009 112 [id number] [phone] ABHILASH GARAY PATIENT [place] PREFERRED PROVIDER ORGANIZAT ION (PPO) FEP BASIC FAM Jun 24, 2009 112 [id number] [phone] ABHILASH GARAY PATIENT [place]BS [place] F[place] PREFERRED PROVIDER ORGANIZAT ION (PPO) BASIC FAMIL Y Jun 24, 2009 112 [id number] [phone] ABHILASH GARAY PATIENT [place] FEP PREFERRED PROVIDER ORGANIZAT ION (PPO) BASIC FAMIL Y Jun 24, 2009 112 [id number] [phone] ABHILASH GARAY PATIENT [place] FEP PREFERRED PROVIDER ORGANIZAT ION (PPO) BASIC FAMIL Y Jun 24, 2009 112 [id number] ABHILASH GARAY PATIENT [place] F[place] DENTAL DENTAL INSURANCE BASIC Jul 12, 2009 DENTAL [id number] ABHILASH GARAY PATIENT [place] FEP PREFERRED PROVIDER ORGANIZAT ION (PPO) BASIC FAMIL Y Jun 24, 2009 [id number] ABHILASH GARAY PATIENT [employer] FEP ([id number]) PRESCRIPT ION FEPRX Jun 24, 2009 [id number] [phone] ABHILASH GARAY PATIENT [place] FEP BCBS PRESCRIPT ION CAREM ARK FEPRX PLAN Nov 21, 2021 [id number] ABHILASH GARAY PATIENT [employer] FEPRX PLAN PRESCRIPT ION CAREM ARK FEPRX Nov 21, 2021 [id number] ABHILASH GARAY PATIENT [employer]-F EP BCBS PRESCRIPT ION FEP CAREM ARK Nov 21, 2021 [id number] ABHILASH GARAY PATIENT [employer]-F EP BCBS PRESCRIPT ION FEP Jun 23, 2010 [id number] RUBI GARAYNETH PATIENT MEDICARE (WN) MEDICARE () PART A Feb 22, 2020 PART A [id number] ABHILASH GARAY PATIENT MEDICARE (WN) MEDICARE () PART A Feb 22, 2020 PART A [id number] ABHILASH GARAY PATIENT MEDICARE (WNR) MEDICARE (M) PART A Feb 22, 2020 PART A [id number] ABHILASH GARAY PATIENT MEDICARE (WNR) MEDICARE (M) PART A Feb 22, 2020 PART A [id number] ABHILASH GARAY PATIENT MEDICARE (WNR) MEDICARE (M) PART A Feb 22, 2020 PART A [id number] [id number] [phone] ABHILASH GARAY PATIENT Selected Encounter This section includes the information on record at [place] for the Encounter. Date/Time Encounter Type Encounter Description Reason Provider Source Jul 24, 2023 01:00 PM EXERCISE CLASS HEALTH/WELLBEING SRVS ICD-10-CM Y93.42 Activity, PAT Yoder IHFran Encounter Template Text not used by [place] Assessments - Encounter Diagnoses This section includes the primary and secondary diagnoses documented for the Encounter. Date/Time Primary/Secondary Diagnosis Diagnosis Name Provider Source Jul 24, 2023 03:34 PM PRIMARY Activity, PEDRO Yoder [facility] [place] [facility] Plan of Treatment: Future Appointments (+ 6 months) and Future Tests (+/- 45 days) The Plan of Treatment section includes future care activities for the patient from all [place] treatmentfacilities. This section includes future appointments and future orders which are active, pending or scheduled. Future Appointments This section includes appointments that were scheduled to occur 6 months from the date of the Encounter, up to a maximum of 20 appointments. The data comes from all [place] treatment facilities. Appointment Date/Time Appointment Type Appointme nt Facility Name Jul 28, 2023 11:00 AM AMBULATORY - MEDICINE [place] C [facility] [facility] Jul 31, 2023 01:00 PM AMBULATORY - MEDICINE [place] [facility] [facility] Aug 01, 2023 11:00 AM AMBULATORY - MEDICINE [place] [facility] [place] [facility] Aug 04, 2023 11:00 AM AMBULATORY - MEDICINE [place] [facility] [place] [facility] Aug 07, 2023 01:00 PM AMBULATORY - MEDICINE [place] [facility] [place] [facility] Aug 12, 2023 11:00 AM AMBULATORY - MEDICINE [place] [facility] [place] [facility] Aug 14, 2023 01:00 PM AMBULATORY - MEDICINE [place] [facility] [place] [facility] Aug 18, 2023 11:00 AM AMBULATORY - MEDICINE [place] [facility] [place] [facility] Aug 21, 2023 01:00 PM AMBULATORY - MEDICINE [place] [facility] [place] [facility] Aug 22, 2023 08:00 AM [facility] Aug 25, 2023 11:00 AM AMBULATORY - MEDICINE [place] [facility] [place] [facility] Aug 28, 2023 01:00 PM AMBULATORY - MEDICINE [place] [facility] [place] [facility] Sep 01, 2023 11:00 AM AMBULATORY - MEDICINE [place] [facility] [place] [facility] Sep 04, 2023 01:00 PM AMBULATORY - MEDICINE [place] [facility] [place] [facility] Sep 08, 2023 11:00 AM AMBULATORY - MEDICINE [place] [facility] [place] [facility] Sep 11, 2023 01:00 PM AMBULATORY - MEDICINE [place] [facility] [place] [facility] Sep 16, 2023 11:00 AM AMBULATORY - MEDICINE [place] [facility] [place] [facility] Sep 29, 2023 11:00 AM AMBULATORY - MEDICINE [place] [facility] [place] [facility] Oct 02, 2023 01:00 PM AMBULATORY - MEDICINE [place] [facility] [place] [facility] Oct 06, 2023 11:00 AM AMBULATORY - MEDICINE [place] [facility] [place] [facility] Social History: Smoking Status (Most current) and Tobacco Use (All prior to encounter date) This section includes the most current, and the historical, smoking and tobacco- related health factors from the [place] facility where the Encounter took place. Current Smoking Status This section includes the most current smoking, or tobacco-related health factor, from the [place] facility where the Encounter took place. Date/Time Current Smoking Status Comment Odalis casey Apr 08, 2023 09:12 AM VA-TOBACCO NEVER USED [facility] Tobacco Use History This section includes a history of the smoking, or tobacco-related health factors, that were collected on or before the date of the Encounter. The data comes from the [place] facility where the Encounter took place. Date/Time Smoking Status/Tobacco Use Comment Gilberto boston Aug 09, 2021 09:20 AM NE-TOBACCO NEVER USED [facility] Encounter Notes: All associated encounter notes This section contains the clinical notes associated to the Encounter. Date/Time Encounter Note(s) Provider Source Jul 24, 2023 02:00 PM RECREATIONAL THERA PY NOTE: LOCAL TITLE: YOGA WELLBEING STANDARD TITLE: RECREATIONAL THERAPY NOTE DATE OF NOTE: JUL 24, 2023@14:00 ENTRY DATE: JUL 24, 2023@15:33:59 AUTHOR: MARY KATE MOORE EXP COSIGNER: URGENCY: STATUS: COMPLETED Group Yoga Class Total time: 60 minutes Class Focus: Breath awareness, mindful movement, relaxation, and gratitude to balance the nervous system and enhance overall well-being. The Practice: Three-part breath pranayama to help utilize more of the lungs and to balance the nervous system; postures that included, but were not limited to, moving warm-up, half sun salutation, sun salutation variations, tree, triangle pose, wide leg forward bend variations, [place] 2, extended side angle pose, [place] 1, plank, cobra, locust, downward facing dog, wisdom pose, contralateral limb raises, head to knee pose, bridge, reclined twist, knees to chest; Systematic Relaxation; and Gratitude. Modifications were geared toward the [place]'s individual needs and preferences. [place] was one of twelve participants in Group Yoga. He practiced all the postures offered, using yoga blocks and a yoga strap for support as needed. He was attentive to his breath throughout the session. will return to class as his schedule allows. /yunior/ MARY KATE MOORE, [id number] Diversional Therapist'S Assistant Signed: 07/24/2023 15:38 MARY KATE MOORE [facility]
--- OUTSIDE RECORDS SUMMARY | 2024-06-29 18:46 | XMS_ITS | Encounter Summary ---
Author Name [place] Address [address] [place] [address] Care Team Providers Care [place] Department Supervisor Name Role Phone ABDIRAHMAN LAKE Primary Care Provider Unavailenrrique wilkes Insurance Providers: All historical and current [...] BASIC FAMIL Y Jun 24, 2009 [id number] [phone] ABHILASH GARAY PATIENT ANTHEM BCBS [place] FEP PREFERRED PROVIDER ORGANIZAT ION (PPO) FEP BASIC FAM Jun 24, 2009 112 [id number] [phone] ABHILASH GARAY PATIENT ANTHEM [place]BS [place] F[place] PREFERRED PROVIDER ORGANIZAT ION (PPO) FEP BASIC FAM Jun 24, 2009 112 [id number] [phone] ABHILASH GARAY PATIENT [place] PREFERRED PROVIDER ORGANIZAT ION (PPO) FEP BASIC FAM Jun 24, 2009 112 [id number] [phone] ABHILASH GARAY PATIENT [place] PREFERRED PROVIDER ORGANIZAT ION (PPO) FEP BASIC FAM Jun 24, 2009 112 [id number] [phone] ABHILASH GARAY PATIENT [place] PREFERRED PROVIDER ORGANIZAT ION (PPO) BASIC FAMIL Y Jun 24, 2009 [id number] ABHILASH GARAY PATIENT [place] F[place] PREFERRED PROVIDER ORGANIZAT ION (PPO) BASIC FAMIL Y Jun 24, 2009 112 [id number] [phone] ABHILASH GARAY PATIENT [place] FEP PREFERRED PROVIDER ORGANIZAT ION (PPO) BASIC FAMIL Y Jun 24, 2009 [id number] ABHILASH GARAY PATIENT [place] F[place] DENTAL DENTAL INSURANCE BASIC Jul 12, 2009 DENTAL [id number] ABHILASH GARAY PATIENT [place] F[place] PREFERRED PROVIDER ORGANIZAT ION (PPO) BASIC FAMIL Y Jun 24, 2009 [id number] ABHILASH GARAY PATIENT [employer] FEP ([id number]) PRESCRIPT ION FEPRX Jun 24, 2009 [id number] [phone] ABHILASH GARAY PATIENT [place] FEP BCBS PRESCRIPT ION CAREM ARK FEPRX PLAN Nov 21, 2021 [id number] ABHILASH GARAY PATIENT [employer] FEPRX PLAN PRESCRIPT ION CAREM ARK FEPRX Nov 21, 2021 [id number] ABHILASH GARAY PATIENT [employer]-F EP BCBS PRESCRIPT ION FEP CAREM ARK Nov 21, 2021 [id number] ABHILASH GARAY PATIENT [place]-F EP BCBS PRESCRIPT ION FEP Jun 23, 2010 [id number] ABHILASH GARAY PATIENT MEDICARE (WN) MEDICARE () PART A Feb 22, 2020 PART A [id number] [phone] ABHILASH GARAY PATIENT MEDICARE ([facility]) MEDICARE () PART A Feb 22, 2020 PART A [id number] NV71 [phone] ABHILASH GARAY PATIENT MEDICARE (WNR) MEDICARE (M) PART A Feb 22, 2020 PART A [id number] [phone] ABHILASH GARAY PATIENT MEDICARE (WNR) MEDICARE (M) PART A Feb 22, 2020 PART A [id number] [phone] ABHILASH GARAY PATIENT MEDICARE (WNR) MEDICARE (M) PART A Feb 22, 2020 PART A [id number] ABHILASH GARAY PATIENT Selected Encounter This section includes the information on record at [place] for the Encounter. Date/Time Encounter Type Encounter Description Reason Pro vider Source Jul 02, 2023 12:00 AM Outpatient Encounter EVENT (HISTORICAL) IHE Encounter Template Text not used by [place] Plan of Treatment: Future Appointments (+ 6 months) and Future Tests (+/- 45 days) The Plan of Treatment section includes future care activities for the patient from all [place] [facility] This section includes future appointments and future orders which are active, pending or scheduled. Future Appointments This section includes appointments that were scheduled to occur 6 months from the date of the Encounter, up to a maximum of 20 appointments. The data comes from all [place] treatment facilities. Appointment Date/Time Appointment Type Appointme nt Facility Name Jul 10, 2023 01:00 PM AMBULATORY [place]ICINE [place] [facility] Jul 14, 2023 11:00 AM AMBULATORY [place]ICINE [place] [facility] Jul 17, 2023 01:00 PM AMBULATORY - MEDICINE [place] [facility] Jul 24, 2023 01:00 PM AMBULATORY - MEDICINE [place] [facility] Jul 28, 2023 11:00 AM AMBULATORY - MEDICINE [place] [facility] Jul 31, 2023 01:00 PM AMBULATORY - MEDICINE [place] [facility] Aug 01, 2023 11:00 AM AMBULATORY [place] MEDICINE [place] [facility] Aug 04, 2023 11:00 AM AMBULATORY - MEDICINE [place] [facility] Aug 07, 2023 01:00 PM AMBULATORY - MEDICINE [place] [facility] [place] [facility] Aug 12, 2023 11:00 AM AMBULATORY - MEDICINE [place] [facility] [place] [facility] Aug 14, 2023 01:00 PM AMBULATORY - MEDICINE [place] [facility] [place] [facility] Aug 18, 2023 11:00 AM AMBULATORY - MEDICINE [place] [facility] [place] [facility] Aug 21, 2023 01:00 PM AMBULATORY - MEDICINE [place] [facility] [place] [facility] Aug 22, 2023 08:00 AM [facility] Aug 25, 2023 11:00 AM AMBULATORY - MEDICINE [place] [facility] [place] [facility] Aug 28, 2023 01:00 PM AMBULATORY - MEDICINE [place] [facility] [place] [facility] Sep 01, 2023 11:00 AM AMBULATORY - MEDICINE [place] [facility] [place] [facility] Sep 04, 2023 01:00 PM AMBULATORY - MEDICINE [place] [facility] [place] [facility] Sep 08, 2023 11:00 AM AMBULATORY - MEDICINE [place] [facility] [place] [facility] Sep 11, 2023 01:00 PM AMBULATORY - MEDICINE [place] [facility] [place] [facility] Social History: Smoking Status (Most current) and Tobacco Use (All prior to encounter date) This section includes the most current, and the historical, smoking and tobacco- related health factors from the [place] facility where the Encounter took place. Current Smoking Status This section includes the most current smoking, or tobacco-related health factor, from the [place] facility where the Encounter took place. Date/Time Current Smoking Status Comment Facil ity Apr 08, 2023 09:12 AM VA-TOBACCO [facility] [place] [facility] Tobacco Use History This section includes a history of the smoking, or tobacco-related health factors, that were collected on or before the date of the Encounter. The data comes from the [place] facility where the Encounter took place. Date/Time Smoking Status/Tobacco Use Comment F acjaved Aug 09, 2021 09:20 AM [facility]CO [facility] Encounter Notes: All associated encounter notes This section contains the clinical notes associated to the Encounter. Date/Time Encounter Note(s) Provider Source Jul 02, 2023 12:00 AM NONVA NOTE: LOCAL TITLE: NON-VA OUTPATIENT NOTES STANDARD TITLE: NONVA NOTE DATE OF NOTE: JUL 02, 2023 ENTRY DATE: JUL 17, 2023@08:08:25 AUTHOR: JORDAN TANNER MA EXP COSIGNER: URGENCY: STATUS: COMPLETED VistA Imaging - Scanned Document SCANNED DOCUMENT SIGNATURE NOT REQUIRED Electronically Filed: 07/17/2023 by: JORDAN TANNER SITE MANAGER JORDAN TANNER [place] [facility]
--- OUTSIDE RECORDS SUMMARY | 2024-06-29 18:46 | XMS_ITS | Encounter Summary ---
Author Name [facility] [place] [facility] [place] [facility] [place] Address [address] [place] [address] Care Team Providers Care Radio News Anchor Name Role Phone [place]BD[place] Primary Care [...] BASIC FAMIL Y Jun 24, 2009 112 [id number] [phone] ABHILASH GARAY PATIENT ANTHEM [place] F[place] PREFERRED PROVIDER ORGANIZAT ION (PPO) FEP BASIC FAM Jun 24, 2009 112 [id number] [phone] ABHILASH GARAY PATIENT ANTHEM [place] F[place] PREFERRED PROVIDER ORGANIZAT ION (PPO) FEP BASIC FAM Jun 24, 2009 112 [id number] [phone] ABHILASH GARAY PATIENT AN[place] F[place] PREFERRED PROVIDER ORGANIZAT ION (PPO) FEP BASIC FAM Jun 24, 2009 112 [id number] [phone] ABHILASH GARAY PATIENT [place] PREFERRED PROVIDER ORGANIZAT ION (PPO) FEP BASIC FAM Jun 24, 2009 112 [id number] [phone] ABHILASH GARAY PATIENT [place] F[place] PREFERRED PROVIDER ORGANIZAT ION (PPO) BASIC FAMIL Y Jun 24, 2009 112 [id number] ABHILASH GARAY PATIENT [place] PREFERRED PROVIDER ORGANIZAT ION (PPO) BASIC FAMIL Y Jun 24, 2009 112 [id number] ABHILASH GARAY PATIENT [place] PREFERRED PROVIDER ORGANIZAT ION (PPO) BASIC FAMIL Y Jun 24, 2009 112 [id number] ABHILASH GARAY PATIENT [place] F[place] DENTAL DENTAL INSURANCE BASIC Jul 12, 2009 DENTAL [id number] ABHILASH GARAY PATIENT [place] F[place] PREFERRED PROVIDER ORGANIZAT ION (PPO) BASIC FAMIL Y Jun 24, 2009 112 [id number] [phone] ABHILASH GARAY PATIENT [place] FEP ([id number]) PRESCRIPT ION FEPRX Jun 24, 2009 [id number] [phone] ABHILASH GARAY PATIENT [place] FEP BCBS PRESCRIPT ION CAR[place] FEPRX PLAN Nov 21, 2021 [id number] ABHILASH GARAY PATIENT [place] FEPRX PLAN PRESCRIPT ION CAREM ARK FEPRX Nov 21, 2021 [id number] ABHILASH GARAY PATIENT [place] BCBS PRESCRIPT ION FEP CAREM ARK Nov 21, 2021 [id number] ABHILASH GARAY PATIENT [place] BCBS PRESCRIPT ION FEP Jun 23, 2010 [id number] RUBI GARAYNETH PATIENT MEDICARE (WN) MEDICARE () PART A Feb 22, 2020 PART A [id number] ABHILASH GARAY PATIENT MEDICARE (WN) MEDICARE () PART A Feb 22, 2020 PART A [id number] [phone] ABHILASH GARAY PATIENT MEDICARE (WNR) MEDICARE (M) PART A Feb 22, 2020 PART A [id number] ABHILASH GARAY PATIENT MEDICARE (WNR) MEDICARE (M) PART A Feb 22, 2020 PART A [id number] [phone] ABHILASH GARAY PATIENT MEDICARE (WNR) MEDICARE (M) PART A Feb 22, 2020 PART A [id number] ABHILASH GARAY PATIENT Selected Encounter This section includes the information on record at [place] for the Encounter. Date/Time Encounter Type Encounter Description Reason Provider Source Jul 17, 2023 01:00 PM EXERCISE CLASS HEALTH/WELLBEING [facility] ICD-10-CM Y93.42 Activity, PAT Yoder IHFran Encounter Template Text not used by [place] Assessments - Encounter Diagnoses This section includes the primary and secondary diagnoses documented for the Encounter. Date/Time Primary/Secondary Diagnosis Diagnosis Name Provider Source Jul 17, 2023 03:31 PM PRIMARY Activity, PEDRO Yoder [facility] [place] [facility] Plan of Treatment: Future Appointments (+ 6 months) and Future Tests (+/- 45 days) The Plan of Treatment section includes future care activities for the patient from all [place] treatmentfacilities. This section includes future appointments and future orders which are active, pending or scheduled. Future Appointments This section includes appointments that were scheduled to occur 6 months from the date of the Encounter, up to a maximum of 20 appointments. The data comes from all [place] treatment facilities. Appointment Date/Time Appointment Type Appointme nt Facility Name Jul 24, 2023 01:00 PM AMBULATORY [place] [facility] [place] [facility] Jul 28, 2023 11:00 AM AMBULATORY - MEDICINE [place] [facility] [place] [facility] Jul 31, 2023 01:00 PM AMBULATORY - MEDICINE [place] [facility] [place] [facility] Aug 01, 2023 11:00 AM AMBULATORY - MEDICINE [place] [facility] [place] [facility] Aug 04, 2023 11:00 AM [facility] [place] [facility] [place] [facility] Aug 07, 2023 01:00 PM [facility]ULATORY [facility]ICINE [facility] [place] [facility] Aug 12, 2023 11:00 AM [facility]ULATORY [facility] [place] [facility] Aug 14, 2023 01:00 PM AMBULATORY - MEDICINE [facility] [place] [facility] Aug 18, 2023 11:00 AM AM[facility]ULATORY [facility]ICINE [facility] [place] [facility] Aug 21, 2023 01:00 PM AMBULATORY - MEDICINE [facility] [place] [facility] Aug 22, 2023 08:00 AM [facility] Aug 25, 2023 11:00 AM AMBULATORY - MEDICINE [facility] [place] [facility] Aug 28, 2023 01:00 PM AMBULATORY - MEDICINE [facility] [place] [facility] Sep 01, 2023 11:00 AM AMBULATORY - MEDICINE [facility] [place] [facility] Sep 04, 2023 01:00 PM AMBULATORY - MEDICINE [facility] [place] [facility] Sep 08, 2023 11:00 AM AMBULATORY - MEDICINE [facility] [place] [facility] Sep 11, 2023 01:00 PM AMBULATORY - MEDICINE [facility] [place] [facility] Sep 16, 2023 11:00 AM AMBULATORY - MEDICINE [facility] [place] [facility] Sep 29, 2023 11:00 AM AMBULATORY - MEDICINE [facility] [place] [facility] Oct 02, 2023 01:00 PM AMBULATORY - MEDICINE [facility] [place] [facility] Social History: Smoking Status (Most current) and Tobacco Use (All prior to encounter date) This section includes the most current, and the historical, smoking and tobacco- related health factors from the [place] facility where the Encounter took place. Current Smoking Status This section includes the most current smoking, or tobacco-related health factor, from the [place] facility where the Encounter took place. Date/Time Current Smoking Status Comment Odalis casey Apr 08, 2023 09:12 AM [place]-TOBACCO NEVER USED [place] [facility] Tobacco Use History This section includes a history of the smoking, or tobacco-related health factors, that were collected on or before the date of the Encounter. The data comes from the [place] facility where the Encounter took place. Date/Time Smoking Status/Tobacco Use Comment Gilberto boston Aug 09, 2021 09:20 AM [place]-TOBACCO NEVER USED [facility] Encounter Notes: All associated encounter notes This section contains the clinical notes associated to the Encounter. Date/Time Encounter Note(s) Provider Source Jul 17, 2023 02:00 PM RECREATIONAL THERA PY NOTE: LOCAL TITLE: YOGA WELLBEING STANDARD TITLE: RECREATIONAL THERAPY NOTE DATE OF NOTE: JUL 17, 2023@14:00 ENTRY DATE: JUL 17, 2023@15:31:01 AUTHOR: MARY KATE MOORE EXP COSIGNER: URGENCY: [...] triangle pose, wide leg forward bend variations, Viper 2, extended side angle pose, Viper 1, plank, cobra, locust, downward facing dog, wisdom pose, contralateral limb raises, head to knee pose, bridge, reclined twist, knees to chest; Systematic Relaxation; and Gratitude. Modifications were geared toward the Lutz's individual needs and preferences. Lutz was one of seven participants in Group Yoga. He practiced all the postures offered, using yoga blocks and a yoga strap for support as needed. He was attentive to his breath throughout the session. Lutz will return to class next week. /yunior/ MARY KATE MOORE, [id number] Form Press Operator Signed: 07/17/2023 15:35 MARY KATE MOORE [facility]
--- OUTSIDE RECORDS SUMMARY | 2024-06-29 18:46 | XMS_ITS | Continuity of Care Document ---
Author Name [facility] Organization [facility] Care Team Providers Care Life Skills Teacher Name Role Phone [facility] Unavailable Unavailable Problems Combined list of problems from Department of Defense and Veterans Affairs facilities. It does not include entries that were removed or entered in error. Problem Status Onset Date Problem Type Date of Resolution Comments Source Atrial fibrillation Active Condition [facility] Back Strain (ICD-9-CM 847.9/729.9) Active Condition [facility] Benign essential hypertension Active Condition [facility] Cellulitis and abscess of foot, except toes (ICD-9-CM 682.7) Active Condition [facility] CLBP - chronic low back pain Active Condition [place] Color Blindness Active Condition [facility] Colorectal Cancer Screening Results documented and Reviewed (PV1) (Includes: Fec Active Condition Jan 19, 2008 Entered By: GREGG HARMON Comment: colonoscopy 2006 +4 hyperplastic polyps [facility] Dermatitis or Eczema * (ICD-9-CM 692.9) Active Condition [place] Dermatophytosis Groin(Tinea Cruris) Active Condition [facility] Gastroesophageal reflux disease Active Condition May 11, 2014 Entered By: GREGG HARMON Comment: egd 04/05 dr whitt [place] Gastroesophageal reflux disease [facility] History of malignant neoplasm of thyroid Active Condition Sep 14, 2022 Entered By: GREGG HARMON Comment: papillary w/mets s/p thyroidectomy and radioiodine 07/2022 [place] History of pulmonary embolus Active Condition [facility] Hyperlipidemia Active Condition [facility] HYPERLIPIDEMIA NEC/NOS Active Condition [place] Intrinsic Eczema Active Condition [facility] Kidney stone Active Condition Sep 11, 2020 Entered By: GREGG HARMON Comment: see cat scan in [facility] from 07/2020 [place] Kidney Stones Active Condition [facility] LIVER CYST Active Condition Feb 11 007 Entered By: GREGG HARMON Comment: found on ct scan 11/27 [facility] Low back pain Active Condition [place] Lumbar radiculopathy Active Condition [facility] Neurofibroma Active [facility] Obesity Active Condition [facility] Onychomycosis of toenails Active Condition [facility] [place] - Obstructive sleep apnea Active Condition Jul 21, 2022 Entered By: GREGG HARMON Comment: sleep study 2022 [place] Osteoarthritis * (ICD-9-CM 715.90) Active Condition [facility] Paresthesia [facility] Peripheral neuropathy Active Condition [facility] Primary malignant neoplasm of skin Active Condition Jan 24 Entered By: GREGG HARMON Comment: path report from 2022 to scan [place] Restless legs syndrome Active Condition [place] Scoliosis Active Condition [place] Scoliosis * (ICD-9-CM 737.30) Active Condition [facility] Thyroid nodule Active Condition [facility] THYROID NODULE Active Condition Jun [id number] Entered By: GREGG HARMON Comment: see 03/2012 cat scan report [place] Tinea Pedis * (ICD-9-CM 110.4) Active Condition [facility] Ulcer of other part of Foot (ICD-9-CM 707.15) Active Condition [facility] Diagnosis: ICD-10-CM Y93.42 Activity, yoga Active Diagnosis [facility] Diagnosis: ICD-10-CM G90.09 Other idiopathic peripheral autonomic neuropathy Active Diagnosis [place] Diagnosis: ICD-10-CM M54.16 Radiculopathy, lumbar region Active Diagnosis [facility] Diagnosis: ICD-10-CM L60.3 Nail dystrophy Active Diagnosis [place] [facility] Diagnosis: ICD-10-CM G47.39 Other sleep apnea Active Diagnosis [place] Diagnosis: ICD-10-CM M54.50 Low back pain, unspecified Active Diagnosis [facility] Diagnosis: ICD-10-CM Z71.89 Other specified counseling Active Diagnosis [facility] Diagnosis: ICD-10-CM Z73.3 Stress, not elsewhere classified Active Diagnosis [facility] Diagnosis: ICD-10-CM G47.33 Obstructive sleep apnea (adult) (pediatric) Active Diagnosis [facility] Diagnosis: ICD-10-CM Z72.3 Lack of physical exercise Active Diagnosis [facility] Diagnosis: ICD-10-CM E66.09 Other obesity due to excess calories Active Diagnosis [facility] Diagnosis: ICD-10-CM Z46.0 Encounter for fit/adjst of spectacles and contact lenses Active Diagnosis [facility] Diagnosis: ICD-10-CM M54.59 Other low back pain Active Diagnosis [facility] Diagnosis: ICD-10-CM H25.813 Combined forms of age-related cataract, bilateral Active Diagnosis [facility] Diagnosis: ICD-10-CM M25.561 Pain in right knee Active Diagnosis [facility] Diagnosis: ICD-10-CM M79.674 Pain in right toe(s) Active Diagnosis [facility] Diagnosis: ICD-10-CM M41.9 Scoliosis, unspecified Active Diagnosis [place] Diagnosis: ICD-10-CM M25.569 Pain in unspecified knee Active Diagnosis [facility] Diagnosis: ICD-10-CM M79.675 Pain in left toe(s) Active Diagnosis [facility] Diagnosis: ICD-10-CM R20.2 Paresthesia of skin Active Diagnosis [facility] Diagnosis: ICD-10-CM G25.81 Restless legs syndrome Active Diagnosis [facility] Diagnosis: ICD-10-CM L60.0 Ingrowing nail Active Diagnosis [facility] Diagnosis: ICD-10-CM I48.91 Unspecified atrial fibrillation Active Diagnosis [place] Diagnosis: ICD-10-CM I73.9 Peripheral vascular disease, unspecified Active Diagnosis [place] Diagnosis: ICD-10-CM H25.013 Cortical age-related cataract, bilateral Active Diagnosis [facility] Diagnosis: ICD-10-CM G47.30 Sleep apnea, unspecified Active Diagnosis [facility] Medications Combined list of outpatient medications from Department of Defense and Veterans Affairs facilities.Medications provided include 1) outpatient medications from the last 15 months, and 2) patient-reported medications. Medication Details Route Status Patient Instructions Prescription Expires Prescription Number Last Dispense Date Ordering Provider Order Date Order Qty Source ACETAMINOPH EN 500MG TAB TAKE ONE TABLET BY MOUTH THREE TIMES DAILY NEEDED FOR PAIN ORAL ACTIVE 02/17/2025 [id number] GREGG BLISS RMEN F 2023 100 [place] ALLOPURINOL 100MG TAB TAKE ONE TABLET BY MOUTH ONCE DAILY FOR GOUT ORAL SUSPEND ED 06/18/2025 [id number] 5 Yaquelin LAKE 2023 90 [place] ALLOPURINOL 100MG TAB TAKE ONE TABLET BY MOUTH ONCE DAILY FOR GOUT ORAL DISCONT INUED 05/22/2024 [id number] 4 JUSTINA HARMON 2022 90 [place] ATORVASTATI N CA 10MG TAB TAKE ONE TABLET BY MOUTH AT BEDTIME FOR HIGH CHOLESTE ROL ORAL SUSPEND ED 11/03/2024 [id number] 5 Carmen PEREIRA 2023 90 [place] ATORVASTATI N CA 10MG TAB TAKE ONE TABLET BY MOUTH AT BEDTIME FOR HIGH CHOLESTE ROL ORAL DISCONT INUED 04/08/2024 [id number] 4 JUSTINA HARMON 2022 90 [place] CAMPHOR/MEN THOL/METHYL SALICYLATE PATCH APPLY 1 PATCH TOPICALL Y ONCE DAILY NEEDED FOR PAIN (REMOVE PATCH AFTER 8 TO 12 HOURS) TOPICA L ACTIVE 12/22/2024 [id number] 4 GREGG BLISS RMEN F 2023 60 [place] CAPSAICIN 0.025% CREAM,TOP APPLY A SMALL AMOUNT TOPICALL Y THREE TIMES A DAY FOR LOCALIZE D PAIN TOPICA L SUSPEND ED 06/23/2025 [id number] 5 MIREILLE DENNISON S 2023 60 [facility] CLOBETASOL PROPIONATE 0.05% CREAM,TOP APPLY A SMALL AMOUNT TOPICALL Y TWICE DAILY TO RASH ON BUTTOCKS AND LEFT KNEE TOPICA L DISCONT INUED BY PROVIDE R 08/31/2023 [id number] Brady CHAN PA-C 2023 120 [facility] DILTIAZEM (EQV-CARDIZ EM AB3) 120MG 24HR CAP TAKE ONE CAPSULE BY MOUTH ONCE DAILY FOR HIGH BLOOD PRESSURE ORAL SUSPEND ED 11/03/2024 [id number] 5 Carmen PEREIRA A 2023 90 [place] DILTIAZEM (EQV-CARDIZ EM AB3) 120MG 24HR CAP TAKE ONE CAPSULE BY MOUTH ONCE DAILY FOR HIGH BLOOD PRESSURE ORAL DISCONT INUED 04/08/2024 [id number] 4 JUSTINA HARMON 2022 90 [place] DILTIAZEM (EQV-CARDIZ EM AB3) 120MG 24HR CAP TAKE ONE CAPSULE BY MOUTH ONCE DAILY ORAL DISCONT INUED (EDIT) 03/25/2024 [id number] 3 JUSTINA HARMON 2022 30 [place] FISH OIL CAP,ORAL TAKE BY MOUTH DAILY ORAL ACTIVE JUSTINA HARMON 2015 [place] FLUOCINONID E 0.05% SOLN,TOP APPLY 5-10 DROPS TO SCALP TWICE DAILY IN THE MORNING and EVENING AND MASSAGE IN. TOPICA L SUSPEND ED 05/19/2025 [id number] 5 Brady CHAN PA-C 2023 60 [facility] KETOCONAZOL E 2% SHAMPOO SHAMPOO TO DAMP HAIR TOPICALL Y DIRECTED BY PROVIDER LEAVE IN FOR 5 MINUTES AND RINSE OUT. USE WHEN SHAMPOOI NG TOPICA L ACTIVE 12/29/2024 [id number] 4 Brady CHAN PA-C 2023 120 [facility] LEVOTHYROXI NE NA 125MCG TAB (SYNTHROID) TAKE ONE TABLET BY MOUTH EVERY MORNING 30 MINUTES BEFORE BREAKFAS T FOR THYROID TAKE ON AN EMPTY STOMACH WITH A FULL GLASS OF WATER ORAL ACTIVE 10/16/2024 [id number] 5 CHENEYSHANTEL FISH 2023 90 [place] LEVOTHYROXI NE NA 137MCG TAB (SYNTHROID) TAKE ONE TABLET BY MOUTH EVERY MORNING 30 MINUTES BEFORE BREAKFAS T FOR THYROID TAKE ON AN EMPTY STOMACH WITH A FULL GLASS OF WATER ORAL DISCONT INUED (EDIT) 08/21/2024 [id number] 4 JUSTINA HARMON 2023 60 [facility] LEVOTHYROXI NE NA 150MCG TAB (SYNTHROID) TAKE ONE TABLET BY MOUTH EVERY MORNING 30 MINUTES BEFORE BREAKFAS T TAKE ON AN EMPTY STOMACH WITH A FULL GLASS OF WATER ORAL DISCONT INUED (EDIT) 07/09/2024 [id number] 4 JUSTINA HARMON 2023 90 [facility] LEVOTHYROXI NE NA 175MCG TAB (SYNTHROID) TAKE ONE TABLET BY MOUTH EVERY MORNING 30 MINUTES BEFORE BREAKFAS T FOR THYROID TAKE ON AN EMPTY STOMACH WITH A FULL GLASS OF WATER ORAL DISCONT INUED (EDIT) 04/08/2024 [id number] 3 JUSTINA HARMON 2022 90 [place] LEVOTHYROXI NE NA 175MCG TAB (SYNTHROID) TAKE ONE TABLET BY MOUTH EVERY MORNING 30 MINUTES BEFORE BREAKFAS T FOR THYROID TAKE ON AN EMPTY STOMACH WITH A FULL GLASS OF WATER ORAL DISCONT INUED (EDIT) 12/28/2023 [id number] 3 JUSTINA HARMON 2022 30 [place] METOPROLOL SUCCINATE 50MG TAB,SA TAKE ONE TABLET BY MOUTH ONCE DAILY FOR BLOOD PRESSURE /HEART ORAL SUSPEND ED 11/03/2024 [id number] 5 Carmen PEREIRA 2023 90 [place] METOPROLOL SUCCINATE 50MG TAB,SA TAKE ONE TABLET BY MOUTH ONCE DAILY FOR BLOOD PRESSURE /HEART ORAL DISCONT INUED 04/08/2024 [id number] JUSTINA HARMON LISA 2022 90 [facility] MULTIVITAMI NS W/MINERALS TAB TAKE ONE TABLET BY MOUTH EVERY DAY ORAL ACTIVE JUSTINA HARMON LISA 2012 [place] NIACIN TAB TAKE BY MOUTH ORAL ACTIVE JUSTINA HARMON LISA 2017 [place] POTASSIUM CITRATE 10MEQ TAB,SA TAKE TWO TABLETS BY MOUTH TWICE DAILY ORAL ACTIVE 05/26/2025 [id number] 4 Yaquelin LAKE 2023 100 [place] POTASSIUM CITRATE 10MEQ TAB,SA TAKE TWO TABLETS BY MOUTH TWICE DAILY ORAL DISCONT INUED 02/25/2025 [id number] 4 Carmen PEREIRAD A 2023 100 [place] POTASSIUM CITRATE 10MEQ TAB,SA TAKE TWO TABLETS BY MOUTH TWICE DAILY ORAL DISCONT INUED 11/28/2024 [id number] 4 Carmen PEREIRAD A 2023 100 [place] POTASSIUM CITRATE 10MEQ TAB,SA TAKE TWO TABLETS BY MOUTH TWICE DAILY ORAL DISCONT INUED 10/23/2023 [id number] 4 Yaquelin [place] 2023 100 [place] POTASSIUM CITRATE 10MEQ TAB,SA TAKE TWO TABLETS BY MOUTH TWICE DAILY ORAL DISCONT INUED 06/13/2023 [id number] EDENJUSTINA GONZALEZ 2022 100 [facility] PREGABALIN 25MG CAP,ORAL TAKE ONE CAPSULE BY MOUTH TWICE DAILY ORAL DISCONT INUED BY BRENNAN R 10/16/2024 [id number] 4 MIREILLE DENNISON S 2023 60 [facility] RIVAROXABAN 20MG TAB TAKE ONE TABLET BY MOUTH ONCE DAILY TO PREVENT BLOOD CLOTS (TAKE WITH FOOD) ORAL SUSPEND ED 11/03/2024 [id number] 5 Carmen PEREIRAD A 2023 90 [place] RIVAROXABAN 20MG TAB TAKE ONE TABLET BY MOUTH ONCE DAILY TO PREVENT BLOOD CLOTS WITH FOOD ORAL DISCONT INUED 01/11/2024 [id number] JUSTINA HARMON 2022 90 [facility] Immunizations Combined list of available immunizations from the Department of Defense and Veterans Affairs facilities. 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 Status Comments Source INFLUENZA, SPLIT VIRUS, TRIVALENT, PF 2023 MADELEINE EUGENIE LEFT DELTO ID [id number] 140 complet ed change his mind [place] INFLUENZA, HIGH-DOSE, QUADRIVALENT 2022 SIDNEYRUMADaisyNAY SA KAYLAH RIGHT DELTO ID [id number] 197 complet ed [facility] PNEUMOCOCCAL CONJUGATE PCV 13 2021 133 complet ed [facility] ZOSTER RECOMBINANT 1 2021 187 complet ed [facility] TDAP 2016 115 complet ed [facility] ZOSTER (SHINGLES) (HISTORICAL) 2014 121 complet ed Proximal Left Arm [place] DTAP, UNSPECIFIED FORMULATION 2010 107 complet ed Site: Left Deltoid [place] TD(ADULT) UNSPECIFIED FORMULATION 2009 139 complet ed States after accident @ work when pallet fell on his toe. [facility] Results Combined list of recent chemistry, hematology and other laboratory results from Department of Defense and Veterans Affairs, ranging from 15 months to all on record, depending upon the facility. Order Name Results Value Reference Range Date Interpretation Specimen Comments Source CPK CREATINE KINASE [ENZYMATIC ACTIVITY/VO LUME] IN SERUM OR PLASMA 67 U/L 30 - 200 04/15 Specimen Type: SERUM No comment entered. Ordering Provider: BLANCA DENNISON Report Released Date/Time: Apr 15, 2024 10:55 AM Reporting Lab: [address] [address] Performing Lab: [address] [address] [facility] [place] [facility] BASIC METABOLIC PANEL (fasting) UREA NITROGEN [MASS/VOLUM E] IN SERUM OR PLASMA 20 mg/dL 7 - 25 03/31 Specimen Type: SERUM No comment entered. Ordering Provider: BENJA HARMON IE Report Released Date/Time: Apr 08, 2023 02:27 PM Reporting Lab: [facility] [place] [facility] [address] [facility] [address] Performing Lab: [facility] [place] [facility] [address] [facility] [address] [place] BASIC METABOLIC PANEL (fasting) GLUCOSE [MASS/VOLUM E] IN SERUM OR PLASMA 100 mg/dL 65 - 100 03/31 Specimen Type: SERUM No comment entered. Ordering Provider: BENJA HARMON IE Report Released Date/Time: Apr 08, 2023 02:27 PM Reporting Lab: [facility] [address] [facility] [address] Performing Lab: [facility] [place] [facility] [address] [facility] [address] [facility] BASIC METABOLIC PANEL (fasting) SODIUM [MOLES/VOLU ME] IN SERUM OR PLASMA 140 mmol/L 135 - 145 03/31 Specimen Type: SERUM No comment entered. Ordering Provider: BENJA HARMON IE Report Released Date/Time: Apr 08, 2023 02:27 PM Reporting Lab: [facility] [address] [facility] [address] Performing Lab: [facility] [place] [facility] [address] [facility] [address] [place] BASIC METABOLIC PANEL (fasting) POTASSIUM [MOLES/VOLU ME] IN SERUM OR PLASMA 4.2 mmol/L 3.5 - 5.0 03/31 Specimen Type: SERUM No comment entered. Ordering Provider: BENJA HARMON IE Report Released Date/Time: Apr 08, 2023 02:27 PM Reporting Lab: [facility] [address] [facility] [address] Performing Lab: [facility] WSN [facility] [address] [facility] [address] [place] BASIC METABOLIC PANEL (fasting) CHLORIDE [MOLES/VOLU ME] IN SERUM OR PLASMA 109 mmol/L 100 - 110 03/31 Specimen Type: SERUM No comment entered. Ordering Provider: BENJA HARMON IE Report Released Date/Time: Apr 08, 2023 02:27 PM Reporting Lab: [facility] [address] [address] Performing Lab: [facility] [address] [address] [employer] ([employer]) BASIC METABOLIC PANEL (fasting) CARBON DIOXIDE, TOTAL [MOLES/VOLU ME] IN SERUM OR PLASMA 23 meq/L 20 - 30 03/31 Specimen Type: SERUM No comment entered. Ordering Provider: BENJA AHRMON IE Report Released Date/Time: Apr 08, 2023 02:27 PM Reporting Lab: [facility] [address] [address] Performing Lab: [facility] [address] [address] [employer] ([employer]) BASIC METABOLIC PANEL (fasting) CREATININE [MASS/VOLUM E] IN SERUM OR PLASMA 0.96 mg/dL 0.50 - 1.40 03/31 Specimen Type: SERUM No comment entered. Ordering Provider: BENJA HARMON IE Report Released Date/Time: Apr 08, 2023 02:27 PM Reporting Lab: [facility] [address] [address] Performing Lab: [facility] [address] [address] [employer] ([employer]) BASIC METABOLIC PANEL (fasting) GLOMERULAR FILTRATION RATE/1.73 SQ M.PREDICTED [VOLUME RATE/AREA] IN SERUM, PLASMA OR BLOOD BY CREATININE- BASED FORMULA (CKD-EPI 2020) 86 mL/min 60 03/31 Specimen Type: SERUM No comment entered. Ordering Provider: BENJA HARMON IE Report Released Date/Time: Apr 08, 2023 02:27 PM Reporting Lab: [facility] [address] [address] Performing Lab: [facility] [place] [facility] [address] [facility] [address] [place] CBC AND DIFF (AUTO) LEUKOCYTES [#/VOLUME] IN BLOOD BY AUTOMATED COUNT 4.01 10*3/u L 4.50 - 11.00 03/31 L Specimen Type: BLOOD No comment entered. Ordering Provider: BENJA HARMON IE Report Released Date/Time: Apr 08, 2023 02:27 PM Reporting Lab: [facility] [place] [facility] [address] [facility] [address] Performing Lab: [facility] [place] [facility] [address] [facility] [address] [place] CBC AND DIFF (AUTO) ERYTHROCYTE S [#/VOLUME] IN BLOOD BY AUTOMATED COUNT 4.67 10*6/u L 4.23 - 5.66 03/31 Specimen Type: BLOOD No comment entered. Ordering Provider: BENJA HARMON IE Report Released Date/Time: Apr 08, 2023 02:27 PM Reporting Lab: [facility] [place] [address] [address] Performing Lab: [facility] [place] [address] [address] [place] CBC AND DIFF (AUTO) HEMOGLOBIN [MASS/VOLUM E] IN BLOOD 14.1 g/dL 12.8 - 17 03/31 Specimen Type: BLOOD No comment entered. Ordering Provider: BENJA HARMON IE Report Released Date/Time: Apr 08, 2023 02:27 PM Reporting Lab: [facility] [place] [address] [address] Performing Lab: [facility] [place] [address] [address] [place] CBC AND DIFF (AUTO) HEMATOCRIT [VOLUME FRACTION] OF BLOOD BY AUTOMATED COUNT 42.9 39.2 - 50.4 03/31 Specimen Type: BLOOD No comment entered. Ordering Provider: BENJA HARMON IE Report Released Date/Time: Apr 08, 2023 02:27 PM Reporting Lab: [facility] [place] [address] [address] Performing Lab: [facility] [place] [facility] [address] [facility] [address] [place] CBC AND DIFF (AUTO) MCV [ENTITIC VOLUME] BY AUTOMATED COUNT 91.9 fL 82 - 99 03/31 Specimen Type: BLOOD No comment entered. Ordering Provider: BENJA HARMON IE Report Released Date/Time: Apr 08, 2023 02:27 PM Reporting Lab: [facility] [place] [facility] [address] [facility] [address] Performing Lab: [facility] [address] [facility] [address] [place] CBC AND DIFF (AUTO) MCHC [MASS/VOLUM E] BY AUTOMATED COUNT 32.9 g/dL 30.8 - 35.1 03/31 Specimen Type: BLOOD No comment entered. Ordering Provider: BENJA HARMON IE Report Released Date/Time: Apr 08, 2023 02:27 PM Reporting Lab: [facility] TRN [facility] [address] [facility] [address] Performing Lab: [facility] [address] [facility] [address] [place] CBC AND DIFF (AUTO) PLATELETS [#/VOLUME] IN BLOOD BY AUTOMATED COUNT 185 10*3/u L 140 - 360 03/31 Specimen Type: BLOOD No comment entered. Ordering Provider: BENJA HARMON IE Report Released Date/Time: Apr 08, 2023 02:27 PM Reporting Lab: [facility]TRN [facility]ETS [facility] [address] [facility] [address] Performing Lab: [facility] [place] [facility] [address] [facility] [address] [place] CBC AND DIFF (AUTO) ERYTHROCYTE DISTRIBUTIO N WIDTH [RATIO] BY AUTOMATED COUNT 13.5 12.0 - 16.0 03/31 Specimen Type: BLOOD No comment entered. Ordering Provider: BENJA HARMON IE Report Released Date/Time: Apr 08, 2023 02:27 PM Reporting Lab: [facility]TRN [facility]ENTERUSE[address] [address] Performing Lab: [facility] [place] [facility] [address] [facility] [address] [place] CBC AND DIFF (AUTO) MONOCYTES [#/VOLUME] IN BLOOD BY AUTOMATED COUNT 0.34 10*3/u L 0.30 - 1.10 03/31 Specimen Type: BLOOD No comment entered. Ordering Provider: BENJA HARMON IE Report Released Date/Time: Apr 08, 2023 02:27 PM Reporting Lab: [facility] [place] [facility] [address] [facility] [address] Performing Lab: [facility] [place] [address] [address] [place] CBC AND DIFF (AUTO) MCH [ENTITIC MASS] BY AUTOMATED COUNT 30.2 pg 26.2 - 32.6 03/31 Specimen Type: BLOOD No comment entered. Ordering Provider: BENJA HARMON IE Report Released Date/Time: Apr 08, 2023 02:27 PM Reporting Lab: [facility] [place] [address] [address] Performing Lab: [facility] [place] [address] [address] [place] CBC AND DIFF (AUTO) NEUTROPHILS /100 LEUKOCYTES IN BLOOD BY AUTOMATED COUNT 67.6 43.7 - 75.8 03/31 Specimen Type: BLOOD No comment entered. Ordering Provider: BENJA HARMON IE Report Released Date/Time: Apr 08, 2023 02:27 PM Reporting Lab: [facility] [place] [address] [address] Performing Lab: [facility] [place] [address] [address] [place] CBC AND DIFF (AUTO) LYMPHOCYTES /100 LEUKOCYTES IN BLOOD BY AUTOMATED COUNT 18.5 14.0 - 42.3 03/31 Specimen Type: BLOOD No comment entered. Ordering Provider: BENJA HARMON IE Report Released Date/Time: Apr 08, 2023 02:27 PM Reporting Lab: [facility] [place] [address] [address] Performing Lab: [facility] [place] [address] [address] [place] CBC AND DIFF (AUTO) MONOCYTES/1 00 LEUKOCYTES IN BLOOD BY AUTOMATED COUNT 8.5 5.1 - 13.7 03/31 Specimen Type: BLOOD No comment entered. Ordering Provider: BENJA HARMON IE Report Released Date/Time: Apr 08, 2023 02:27 PM Reporting Lab: [facility] [place] [facility] [address] [facility] [address] Performing Lab: [facility] [place] [facility] [address] [facility] [address] [place] CBC AND DIFF (AUTO) EOSINOPHILS /100 LEUKOCYTES IN BLOOD BY AUTOMATED COUNT 4.2 0.4 - 6.8 03/31 Specimen Type: BLOOD No comment entered. Ordering Provider: BENJA HARMON IE Report Released Date/Time: Apr 08, 2023 02:27 PM Reporting Lab: [facility] [address] [facility] [address] Performing Lab: [facility] [place] [facility] [address] [facility] [address] [place] CBC AND DIFF (AUTO) BASOPHILS/1 00 LEUKOCYTES IN BLOOD BY AUTOMATED COUNT 1.0 0.1 - 2.0 03/31 Specimen Type: BLOOD No comment entered. Ordering Provider: BENJA HARMON IE Report Released Date/Time: Apr 08, 2023 02:27 PM Reporting Lab: [facility] [address] [facility] [address] Performing Lab: [facility] [address] [facility] [address] [place] CBC AND DIFF (AUTO) NEUTROPHILS [#/VOLUME] IN BLOOD BY AUTOMATED COUNT 2.71 10*3/u L 2.20 - 7.60 03/31 Specimen Type: BLOOD No comment entered. Ordering Provider: BENJA HARMON IE Report Released Date/Time: Apr 08, 2023 02:27 PM Reporting Lab: [facility] [place] [facility] [address] [facility] [address] Performing Lab: [facility] [address] [address] [place] CBC AND DIFF (AUTO) LYMPHOCYTES [#/VOLUME] IN BLOOD BY AUTOMATED COUNT 0.74 10*3/u L 1.00 - 3.20 03/31 L Specimen Type: BLOOD No comment entered. Ordering Provider: BENJA HARMON IE Report Released Date/Time: Apr 08, 2023 02:27 PM Reporting Lab: [facility] [address] [address] Performing Lab: [facility] [address] [address] [place] CBC AND DIFF (AUTO) EOSINOPHILS [#/VOLUME] IN BLOOD BY AUTOMATED COUNT 0.17 10*3/u L 0.03 - 0.44 03/31 Specimen Type: BLOOD No comment entered. Ordering Provider: BENJA HARMON IE Report Released Date/Time: Apr 08, 2023 02:27 PM Reporting Lab: [facility] [address] [address] Performing Lab: [facility] [address] [address] [place] CBC AND DIFF (AUTO) BASOPHILS [#/VOLUME] IN BLOOD BY AUTOMATED COUNT 0.04 10*3/u L 0.01 - 0.13 03/31 Specimen Type: BLOOD No comment entered. Ordering Provider: BENJA HARMON IE Report Released Date/Time: Apr 08, 2023 02:27 PM Reporting Lab: [facility] [address] [address] Performing Lab: [facility] [address] [address] [place] CBC AND DIFF (AUTO) IMMATURE GRANULOCYTE S/100 LEUKOCYTES IN BLOOD BY AUTOMATED COUNT 0.2 0.0 - 0.7 03/31 Specimen Type: BLOOD No comment entered. Ordering Provider: BENJA HARMON IE Report Released Date/Time: Apr 08, 2023 02:27 PM Reporting Lab: [facility] [address] [address] Performing Lab: [facility] [address] [address] [place] CBC AND DIFF (AUTO) IMMATURE GRANULOCYTE S [#/VOLUME] IN BLOOD 0.01 10*3/u L 0.00 - 0.06 03/31 Specimen Type: BLOOD No comment entered. Ordering Provider: BENJA HARMON IE Report Released Date/Time: Apr 08, 2023 02:27 PM Reporting Lab: [address] [address] Performing Lab: [address] [address] [place] CBC AND DIFF (AUTO) NRBC % 0.0 0.0 - 0.0 03/31 Specimen Type: BLOOD No comment entered. Ordering Provider: BENJA HARMON IE Report Released Date/Time: Apr 08, 2023 02:27 PM Reporting Lab: [address] [address] Performing Lab: [address] [address] [place] CBC AND DIFF (AUTO) NRBC, ABS 0.00 10*3/u L 0.00 - 0.00 03/31 Specimen Type: BLOOD No comment entered. Ordering Provider: BENJA HARMON IE Report Released Date/Time: Apr 08, 2023 02:27 PM Reporting Lab: [address] [address] Performing Lab: [address] [address] [place] HEMOGLOBI N A1C PANEL HEMOGLOBIN A1C/HEMOGLO BIN.TOTAL IN BLOOD BY HPLC 5.2 4.0 - 5.6 03/31 Specimen Type: BLOOD Comment: Values obtained from A1C measurement s can vary. For atypical A1C assays, a reported value of 7.0 could actually be between 6.72 and 7.28 if measured by a reference method. A reported value of 9.0 could actually be between 8.73 and 9.27. Ref: http://www. ngsp.org/[place] Pdata.asp Ordering Provider: BENJA HARMON IE Report Released Date/Time: Apr 08, 2023 02:27 PM Reporting Lab: [facility] [address] [address] Performing Lab: [facility] [address] [address] [place] LIPID PANEL FASTING CHOLESTEROL [MASS/VOLUM E] IN SERUM OR PLASMA 164 mg/dL 03/31 Specimen Type: SERUM No comment entered. Ordering Provider: BENJA HARMON IE Report Released Date/Time: Apr 08, 2023 02:27 PM Reporting Lab: [facility] [address] [address] Performing Lab: [facility] [address] [place] LIPID PANEL FASTING TRIGLYCERID E [MASS/VOLUM E] IN SERUM OR PLASMA 102 mg/dL 0 - 150 03/31 Specimen Type: SERUM No comment entered. Ordering Provider: BENJA HARMON IE Report Released Date/Time: Apr 08, 2023 02:27 PM Reporting Lab: [facility] [address] [address] Performing Lab: [facility] [address] [place] LIPID PANEL FASTING CHOLESTEROL IN LDL [MASS/VOLUM E] IN SERUM OR PLASMA BY CALCULATION 101 mg/dL 0 - 129 03/31 Specimen Type: SERUM No comment entered. Ordering Provider: BENJA HARMON IE Report Released Date/Time: Apr 08, 2023 02:27 PM Reporting Lab: [facility] [address] Performing Lab: [facility] [address] [place] LIPID PANEL FASTING CHOLESTEROL .TOTAL/CHOL ESTEROL IN HDL [MASS RATIO] IN SERUM OR PLASMA 3.8 03/31 Specimen Type: SERUM No comment entered. Ordering Provider: BENJA HARMON IE Report Released Date/Time: Apr 08, 2023 02:27 PM Reporting Lab: [facility] [place] [facility] [address] [facility] [address] Performing Lab: [facility] [address] [facility] [address] [place] LIPID PANEL FASTING CHOLESTEROL IN HDL [MASS/VOLUM E] IN SERUM OR PLASMA 43 mg/dL 40 - 60 03/31 Specimen Type: SERUM No comment entered. Ordering Provider: BENJA HARMON IE Report Released Date/Time: Apr 08, 2023 02:27 PM Reporting Lab: [facility] [address] [facility] [address] Performing Lab: [facility] [address] [place] LIVER FUNCTION PROTEIN [MASS/VOLUM E] IN SERUM OR PLASMA 6.0 g/dL 6.0 - 8.3 03/31 Specimen Type: SERUM No comment entered. Ordering Provider: BENJA HARMON IE Report Released Date/Time: Apr 08, 2023 02:27 PM Reporting Lab: [facility] [place] [facility] [address] [facility] [address] Performing Lab: [facility] [address] [place] LIVER FUNCTION ALBUMIN [MASS/VOLUM E] IN SERUM OR PLASMA 3.5 g/dL 3.5 - 5.0 03/31 Specimen Type: SERUM No comment entered. Ordering Provider: BENJA HARMON IE Report Released Date/Time: Apr 08, 2023 02:27 PM Reporting Lab: [facility] [address] [facility] [address] Performing Lab: [facility] [address] [place] LIVER FUNCTION ALKALINE PHOSPHATASE [ENZYMATIC ACTIVITY/VO LUME] IN SERUM OR PLASMA 70 U/L 40 - 150 03/31 Specimen Type: SERUM No comment entered. Ordering Provider: BENJA HARMON IE Report Released Date/Time: Apr 08, 2023 02:27 PM Reporting Lab: [facility] [address] Performing Lab: [facility] [place] [facility] [address] [facility] [address] [place] LIVER FUNCTION ASPARTATE AMINOTRANSF ERASE [ENZYMATIC ACTIVITY/VO LUME] IN SERUM OR PLASMA 14 U/L 5 - 34 03/31 Specimen Type: SERUM No comment entered. Ordering Provider: BENJA HARMON IE Report Released Date/Time: Apr 08, 2023 02:27 PM Reporting Lab: [facility] [place] [facility] [address] [facility] [address] Performing Lab: [facility] [place] [facility] [address] [facility] [address] [place] LIVER FUNCTION ALANINE AMINOTRANSF ERASE [ENZYMATIC ACTIVITY/VO LUME] IN SERUM OR PLASMA 20 U/L 03/31 Specimen Type: SERUM No comment entered. Ordering Provider: BENJA HARMON IE Report Released Date/Time: Apr 08, 2023 02:27 PM Reporting Lab: [facility] [place] [address] [address] Performing Lab: [facility] [place] [address] [address] [place] LIVER FUNCTION BILIRUBIN.T OTAL [MASS/VOLUM E] IN SERUM OR PLASMA 1.0 mg/dL 0.2 - 1.2 03/31 Specimen Type: SERUM No comment entered. Ordering Provider: BENJA HARMON IE Report Released Date/Time: Apr 08, 2023 02:27 PM Reporting Lab: [facility] [place] [address] [address] Performing Lab: [facility] [place] [address] [address] [place] TSH THYROTROPIN [UNITS/VOLU ME] IN SERUM OR PLASMA 2.67 u[IU]/ mL 0.35 - 5.00 03/31 Specimen Type: SERUM No comment entered. Ordering Provider: BENJA HARMON IE Report Released Date/Time: Apr 08, 2023 02:27 PM Reporting Lab: [facility] [place] [address] [address] Performing Lab: [facility] [place] [facility] [address] [facility] [address] [place] LIPID PANEL FASTING CHOLESTEROL [MASS/VOLUM E] IN SERUM OR PLASMA 166 mg/dL 04/02 Specimen Type: SERUM No comment entered. Ordering Provider: BENJA HARMON IE Report Released Date/Time: Mar 19, 2023 04:01 PM Reporting Lab: [facility] [address] [facility] [address] Performing Lab: [facility] [address] [facility] [address] [place] LIPID PANEL FASTING TRIGLYCERID E [MASS/VOLUM E] IN SERUM OR PLASMA 73 mg/dL 0 - 150 04/02 Specimen Type: SERUM No comment entered. Ordering Provider: BENJA HARMON IE Report Released Date/Time: Mar 19, 2023 04:01 PM Reporting Lab: [facility] [address] [facility] [address] Performing Lab: [facility]ENTER[facility] [address] [place] LIPID PANEL FASTING CHOLESTEROL IN LDL [MASS/VOLUM E] IN SERUM OR PLASMA BY CALCULATION 109 mg/dL 0 - 129 04/02 Specimen Type: SERUM No comment entered. Ordering Provider: BENJA HARMON IE Report Released Date/Time: Mar 19, 2023 04:01 PM Reporting Lab: [facility] [address] [address] Performing Lab: [facility]ENTERUSE[address] [address] [place] LIPID PANEL FASTING CHOLESTEROL .TOTAL/CHOL ESTEROL IN HDL [MASS RATIO] IN SERUM OR PLASMA 4.0 04/02 Specimen Type: SERUM No comment entered. Ordering Provider: BENJA HARMON IE Report Released Date/Time: Mar 19, 2023 04:01 PM Reporting Lab: [facility]ENTER[facility] [address] Performing Lab: [facility]ENTERUSE[address] [address] [place] LIPID PANEL FASTING CHOLESTEROL IN HDL [MASS/VOLUM E] IN SERUM OR PLASMA 42 mg/dL 40 - 60 04/02 Specimen Type: SERUM No comment entered. Ordering Provider: BENJA HARMON Report Released Date/Time: Mar 19, 2023 04:01 PM Reporting Lab: [facility] [address] [facility] [address] Performing Lab: [address] [address] [facility] PSA PROSTATE SPECIFIC AG [MASS/VOLUM E] IN SERUM OR PLASMA 2.05 ng/mL 0.00 - 4.00 04/02 Specimen Type: SERUM No comment entered. Ordering Provider: BENJA HARMON Report Released Date/Time: Mar 19, 2023 04:01 PM Reporting Lab: [address] [address] Performing Lab: [address] [address] [facility] VITAMIN B12 COBALAMIN (VITAMIN B12) [MASS/VOLUM E] IN SERUM OR PLASMA 342 pg/mL 200 - 900 04/02 Specimen Type: SERUM No comment entered. Ordering Provider: BENJA HARMON Report Released Date/Time: Mar 19, 2023 04:01 PM Reporting Lab: [address] [address] Performing Lab: [address] [address] [facility] Vital Signs Combined list of inpatient and outpatient Vital Signs from Department of Defense and Veterans Affairs, ranging from 12 months to all on record, depending upon the facility. Vital Sign Value Date Comments Source SYSTOLIC BLOOD PRESSURE 117 04/06/20 24 10:37:43 [facility] DIASTOLIC BLOOD PRESSURE 70 024 10:37:43 [facility] PULSE OXIMETRY 96 04/06/2024 10:37:43 [facility] WEIGHT 260 04/06/2024 10:37:43 [facility] BMI 33kg/m2 04/06/2024 10:37:43 [facility] PULSE 72 04/06/2024 10:37:43 [facility] WEIGHT 256.9 02/25/2024 11:00:00 [facility] BMI 33kg/m2 02/25/2024 11:00:00 [facility] SYSTOLIC BLOOD PRESSURE 138 12/22/19 24 10:19:39 [facility] DIASTOLIC BLOOD PRESSURE 76 024 10:19:39 [facility] PULSE OXIMETRY 95 12/22/2023 10:19:39 [facility] WEIGHT 255.4 12/22/2023 10:19:39 [facility] BMI 33kg/m2 12/22/2023 10:19:39 [facility] TEMPERATURE 97.5 12/22/2023 10:19:39 [facility] PULSE 80 12/22/2023 10:19:39 [facility] SYSTOLIC BLOOD PRESSURE 155 08/01/19 24 11:18:04 [facility] DIASTOLIC BLOOD PRESSURE 66 024 11:18:04 [facility] PULSE OXIMETRY 95 08/01/2023 11:18:04 [facility] WEIGHT 250 08/01/2023 11:18:04 [facility] BMI 32kg/m2 08/01/2023 11:18:04 [facility] PAIN 0 08/01/2023 11:18:04 [facility] TEMPERATURE 96.7 08/01/2023 11:18:04 [facility] PULSE 93 08/01/2023 11:18:04 [facility] RESPIRATION 18 08/01/2023 11:18:04 [facility] Encounters Combined list of: 1) Encounters from Department of Veterans Affairs facilities going back up to thelast 18 months. 2) Encounters from the Department of Defense facilities going back up to 280 months. Location Location Details Encounter Type Encounter Number Reason For Visit Attending Provider ADM Date DC Date Status Disposition Source [facility] En[facility] [id number] 12/27 [facility] COLLJ & INTERPJ DATA EA 30 D [id number] Diagnos is: ICD-10- CM G47.39 Other sleep apnea<b r/> RAYNE CARPIO 12/31 [facility] En[facility] [id number] 01/03 [facility] [id number] 01/06 [facility] En[facility] [id number] 01/07 [facility] En[facility] [id number] 01/07 [facility] Encounter [id number] 01/09 [facility] En[facility] [id number] 01/09 [facility] En[facility] [id number] 01/09 [facility] En[facility] [id number] 01/10 [facility] En[facility] [id number] 01/13 [facility] En[facility] [id number] 01/17 [facility] En[facility] [id number] 01/17 [facility] En[facility] [id number] 01/17 [facility] En[facility] [id number] 01/20 [facility] En[facility] [id number] 01/21 [facility] [id number] 01/21 [facility] En[facility] [id number] 01/22 [facility] En[facility] [id number] 01/24 [facility] En[facility] [id number] 01/27 [facility] Encounter [id number] 01/28 [facility] Encounter [id number] 01/28 [facility] TUBING WITH HEATING ELEMENT [id number] Diagnos is: ICD-10- CM G47.30 Sleep apnea, unspeci fied
GLORIA HARMON 01/30 [facility] POS AIRWAY PRESSURE FILTER [id number] Diagnos is: ICD-10- CM G47.33 Obstruc tive sleep apnea (adult) (pediat griselda)
[facility] REGINA YADAV P 01/30 [facility] En[facility] [id number] 01/31 [facility] En[facility] [id number] 02/01 [facility] Encounter [id number] 02/07 [facility] DETERMINE REFRACTIVE STATE [id number] Diagnos is: ICD-10- CM H25.013 Cortica l age-rel ated catarac t, bilater al
VINCE MYERS 02/07 [facility] En[facility] [id number] 02/07 [facility] FIT SPECTACLES MULTIFOCAL [id number] Diagnos is: ICD-10- CM Z46.0 Encount er for fit/adj st of spectac les and contact lenses< br/> BOOKER ADAMS 02/07 [facility] En[facility] [id number] 02/10 [facility] Encounter [id number] 02/10 [facility] Encounter [id number] 02/12 [facility] Encounter [id number] 02/14 [facility] En[facility] [id number] 02/17 [facility] En[facility] [id number] 02/20 [facility] Out[facility] Encounter [id number] 02/21 [facility] En[facility] [id number] 02/21 [facility] Encounter [id number] 02/28 [facility] En[facility] [id number] 03/03 [facility] En[facility] [id number] 03/05 [facility] En[facility] [id number] 03/07 [facility] [place] OFF[place] O/P EST LOW 20-29 MIN [id number] Diagnos is: ICD-10- CM I73.9 Periphe ral vascula r disease , unspeci fied
EDGARD CARRANZA F 03/07 [facility] En[facility] [id number] 03/07 [facility] [id number] 03/08 [facility] En[facility] [id number] 03/18 [facility] [id number] 03/24 [facility] En[facility] [id number] 03/24 [facility] TUBING WITH HEATING ELEMENT [id number] Diagnos is: ICD-10- CM G47.39 Other sleep apnea<b r/> RAYNE CARPIO A 03/25 [facility] TUBING WITH HEATING ELEMENT [id number] Diagnos is: ICD-10- CM G47.39 Other sleep apnea<b r/> GLORIA HARMON 03/25 [facility] En[facility] [id number] 03/27 [facility] [id number] 03/28 [facility] [id number] 03/31 [facility] [id number] 04/02 [facility] [id number] 04/02 [facility] [id number] 04/03 [facility] En[facility] [id number] 04/04 [facility] [id number] 04/07 [facility] En[facility] [id number] 04/08 [facility] [place] ADMIN [id number] GLORIA HARMON 04/08 [facility] OFFICE O/P EST MOD 30-39 MIN [id number] Diagnos is: ICD-10- CM I48.91 Unspeci fied atrial fibrill ation<b r/> GLORIA HARMON 04/08 [facility] [id number] Diagnos is: ICD-10- CM M41.9 Scolios is, unspeci fied
EMILIAJULITATERESA Arellano 04/08 [facility]counter [id number] 04/10 [facility] [id number] 04/11 [facility] Out[facility] Encounter [id number] 04/14 [facility] Out[facility]counter [id number] 04/18 [facility] Out[facility] Encounter [id number] 04/25 [facility] Out[facility] Encounter [id number] 04/28 [facility] Out[facility]counter [id number] 05/01 [facility] Out[facility] Encounter [id number] 05/02 [facility] Out[facility]counter [id number] 05/05 [facility] Out[facility] Encounter [id number] 05/06 [facility] Out[facility] Encounter [id number] 05/07 [facility] Out[facility] Encounter [id number] 05/09 [facility] Out[facility] Encounter [id number] 05/12 [facility] Out[facility]counter [id number] 05/13 [facility] Out[facility]counter [id number] 05/14 [facility] Out[facility] Encounter [id number] 05/20 [facility] Out[facility] Encounter [id number] 05/21 [facility] Out[facility] Encounter [id number] 05/26 [facility] Out[facility]counter [id number] 05/30 [facility] Out[facility]counter [id number] [id number] 06/02 [facility] Outpatient Encounter [id number] 06/04 [facility] Outpatient [facility]counter [id number] 06/09 [facility] Outpatient Encounter [id number] 06/13 [facility] Outpatient Encounter [id number] 06/17 [facility] Outpatient [facility]counter [id number] 06/17 [facility] Outpatient Encounter [id number] 06/20 [facility] Outpatient Encounter [id number] 06/24 [facility] Outpatient [facility]counter [id number] 06/24 [facility] Outpatient Encounter [id number] GLORIA HARMON 06/27 [facility] Outpatient Encounter [id number] 06/27 [facility] Outpatient Encounter [id number] 07/02 [facility] Outpatient Encounter [id number] 07/03 [facility] Outpatient Encounter [id number] 07/04 [facility] Outpatient [facility]counter [id number] 07/07 [facility] Outpatient Encounter [id number] 07/09 [facility] STRESS MGMT CLASS [id number] Diagnos is: ICD-10- CM Y93.42 Activit y, yoga
ZANVETTOR, MARY KATE 07/10 [facility] EXERCISE CLASS [id number] Diagnos is: ICD-10- CM Y93.42 Activit y, yoga
ZANVETTOR, MARY KATE 07/14 [facility] EXERCISE CLASS [id number] Diagnos is: ICD-10- CM Y93.42 Activit y, yoga
ZANVETTOR, MARY KATE 07/17 [facility] Outpatient Encounter [id number] 07/18 [facility] EXERCISE CLASS [id number] [id number] Diagnos is: ICD-10- CM Y93.42 Activit y, yoga
ZANVETTOR, MARY KATE 07/24 [facility] Outpatient Encounter [id number] 07/25 [facility] STRESS MGMT CLASS [id number] [id number] Diagnos is: ICD-10- CM Y93.42 Activit y, yoga
ZANVETTOR, MARY KATE 07/28 [facility] EXERCISE CLASS [id number] [id number] Diagnos is: ICD-10- CM Y93.42 Activit y, yoga
ZANVETTOR, MARY KATE 07/31 [facility] Outpatient Encounter [id number] XAVIER BLEDSOE 08/01 [facility] Outpatient Encounter [id number] 08/01 [facility] Outpatient Encounter [id number] Carmen SHIN 08/01 [facility] OFF/OP EST OCTOBER X REQ PHY/QHP [id number] Diagnos is: ICD-10- CM Z71.89 Other specifi ed res counselor ing<br/ > Olivia MYRICK 08/01 [facility] STRESS MGMT CLASS [id number] [id number] Diagnos is: ICD-10- CM Y93.42 Activit y, yoga
ZANVETTOR, MARY KATE 08/04 [facility] EXERCISE CLASS [id number] Diagnos is: ICD-10- CM Y93.42 Activit y, yoga
ZANVETTOR, MARY KATE 08/07 [facility] Outpatient Encounter [id number] 08/08 [facility] EXERCISE CLASS [id number] Diagnos is: ICD-10- CM Y93.42 Activit y, yoga
ZANVETTOR, MARY KATE 08/12 [facility] EXERCISE CLASS [id number] [id number] Diagnos is: ICD-10- CM Y93.42 Activit y, yoga
ZANVETTOR, MARY KATE 08/14 [facility] Outpatient Encounter [id number] 08/15 [facility] EXERCISE CLASS [id number] [id number] Diagnos is: ICD-10- CM Y93.42 Activit y, yoga
ZANVETTOR, MARY KATE 08/18 [facility] Outpatient Encounter [id number] 08/18 [facility] Outpatient Encounter [id number] 08/19 [facility] Outpatient Encounter [id number] [id number] 08/20 [facility] Outpatient Encounter [id number] [facility] EXERCISE CLASS [id number] [id number] Diagnos is: ICD-10- CM Y93.42 Activit y, yoga
ZANVETTOR, MARY KATE [facility] OFFICE O/P EST LOW 20 MIN [id number] [id number] Diagnos is: ICD-10- CM L60.0 Ingrowi ng nail
EDGARD CARRANZA ES F 08/21 [place] [facility] Outpatient Encounter [id number] 08/21 [facility] EXERCISE CLASS [id number] [id number] Diagnos is: ICD-10- CM Y93.42 Activit y, yoga
ZANVETTOR, MARY KATE 08/24 [facility] STRESS MGMT CLASS [id number] [id number] Diagnos is: ICD-10- CM Y93.42 Activit y, yoga
ZANVETTOR, MARY KATE 08/27 [facility] Outpatient Encounter [id number] 08/28 [facility] Outpatient Encounter [id number] 08/28 [facility] Outpatient Encounter [id number] 08/28 [facility] EXERCISE CLASS [id number] Diagnos is: ICD-10- CM Y93.42 Activit y, yoga
ZANVETTOR, MARY KATE 08/31 [facility] EXERCISE CLASS [id number] Diagnos is: ICD-10- CM Y93.42 Activit y, yoga
ZANVETTOR, MARY KATE 09/03 [facility] Outpatient Encounter [id number] 09/04 [facility] STRESS MGMT CLASS [id number] [id number] Diagnos is: ICD-10- CM Y93.42 Activit y, yoga
ZANVETTOR, MARY KATE 09/07 [facility] EXERCISE CLASS [id number] [id number] Diagnos is: ICD-10- CM Y93.42 Activit y, yoga
ZANVETTOR, MARY KATE 09/10 [facility] Outpatient Encounter [id number] 09/14 [facility] COLLJ & INTERPJ DATA EA 30 D [id number] Diagnos is: ICD-10- CM G47.39 Other sleep apnea<b r/> RAYNE CARPIO A 09/14 [facility] EXERCISE CLASS [id number] [id number] Diagnos is: ICD-10- CM Y93.42 Activit y, yoga
ZANVETTOR, MARY KATE 09/15 [facility] Outpatient Encounter [id number] MARCE BLISS F 09/16 [facility] Outpatient Encounter [id number] 09/21 [facility] Outpatient Encounter [id number] 09/22 [facility] Outpatient Encounter [id number] 09/22 [facility] Outpatient Encounter [id number] 09/22 [facility] Outpatient Encounter [id number] 09/22 [facility] Outpatient Encounter [id number] 09/25 [facility] Outpatient Encounter [id number] 09/25 [facility] EXERCISE CLASS [id number] Diagnos is: ICD-10- CM Y93.42 Activit y, yoga
ZANVETTOR, MARY KATE 09/28 [facility] EXERCISE CLASS [id number] Diagnos is: ICD-10- CM Y93.42 Activit y, yoga
ZANVETTOR, MARY KATE 10/01 [facility] Outpatient Encounter [id number] 10/02 [facility] Outpatient Encounter [id number] 10/02 [facility] Outpatient [facility]counter [id number] 10/05 [facility] EXERCISE CLASS [id number] Diagnos is: ICD-10- CM Y93.42 Activit y, yoga
ZANVETTOR, MARY KATE 10/05 [facility] RPR&REFITG SPECT XCP APHAKIA [id number] [id number] Diagnos is: ICD-10- CM Z46.0 Encount er for fit/adj st of spectac les and contact lenses< br/> KARYN,A JAQUI J 10/05 [facility] EXERCISE CLASS [id number] [id number] Diagnos is: ICD-10- CM Y93.42 Activit y, yoga
ZANVETTOR, MARY KATE 10/08 [facility] Outpatient Encounter [id number] 10/09 [facility] Outpatient Encounter [id number] 10/12 [facility] EXERCISE CLASS [id number] [id number] Diagnos is: ICD-10- CM Y93.42 Activit y, yoga
ZANVETTOR, MARY KATE 10/12 [facility] Outpatient Encounter [id number] 10/14 [facility] EXERCISE CLASS [id number] [id number] Diagnos is: ICD-10- CM Y93.42 Activit y, yoga
ZANVETTOR, MARY KATE 10/15 [facility] Outpatient Encounter [id number] 10/16 [facility] Outpatient [facility]counter [id number] 10[facility]16 [facility] Outpatient Encounter [id number] 10/16 [facility] EXERCISE CLASS [id number] [id number] Diagnos is: ICD-10- CM Y93.42 Activit y, yoga
ZANVETTOR, MARY KATE 10/19 [facility] Outpatient Encounter [id number] 10/21 [facility] EXERCISE CLASS [id number] [id number] Diagnos is: ICD-10- CM Y93.42 Activit y, yoga
ZANVETTOR, MARY KATE 10/22 [facility] Outpatient Encounter [id number] 10/23 [facility] EXERCISE CLASS [id number] [id number] Diagnos is: ICD-10- CM Y93.42 Activit y, yoga
ZANVETTOR, MARY KATE 10/26 [facility] Outpatient Encounter [id number]/30 [facility] Outpatient Encounter [id number] 10/30 [facility] Outpatient Encounter [id number] 10/30 [facility] EXERCISE CLASS [id number] [id number] Diagnos is: ICD-10- CM Y93.42 Activit y, yoga
ZANVETTOR, MARY KATE 11/02 [facility] OFFICE O/P NEW LOW 30 MIN [id number] [id number] Diagnos is: ICD-10- CM G25.81 Restles s legs syndrom e
GAUNYA,CHR ISTOPHER M 11/02 [facility] EXERCISE CLASS [id number] [id number] Diagnos is: ICD-10- CM Y93.42 Activit y, yoga
ZANVETTOR, MARY KATE 11/05 [facility] INFRARED THERAPY [id number] [id number] Diagnos is: ICD-10- CM M54.50 Low back pain, unspeci fied
GAUNYA,[facility] ISTOPHER M 11/05 [facility] EXERCISE CLASS [id number] [id number] Diagnos is: ICD-10- CM Y93.42 Activit y, yoga
ZANVETTOR, MARY KATE 11/09 [facility] Outpatient Encounter [id number] 11/11 [facility] INFRARED THERAPY [id number] [id number] Diagnos is: ICD-10- CM R20.2 Paresth esia of skin
GAUNYA,[facility] ISTOPHER M 11/12 [facility] Outpatient [facility]counter [id number] 11[facility]12 [facility] Outpatient Encounter [id number] 11/13 [facility] EXERCISE CLASS [id number] [id number] Diagnos is: ICD-10- CM Y93.42 Activit y, yoga
ZANVETTOR, MARY KATE 11/17 [facility] Outpatient Encounter [id number] 11/17 [facility] INFRARED THERAPY [id number] [id number] Diagnos is: ICD-10- CM M79.675 Pain in left toe(s)< br/> JACEK DENNISON ISTOPHER M 11/19 [facility] EXERCISE CLASS [id number] [id number] Diagnos is: ICD-10- CM Y93.42 Activit y, yoga
ZANVETTOR, MARY KATE 11/19 [facility] Outpatient Encounter [id number] 11/26 [facility] Outpatient Encounter [id number] [id number] 11/27 [facility] Outpatient [facility]counter [id number] [id number] 11/27 [facility] Outpatient Encounter [id number] 11/30 [facility] HC PRO PHONE CALL 5-10 MIN [id number] [id number] Diagnos is: ICD-10- CM G47.33 Obstruc tive sleep apnea (adult) (pediat griselda)
RAYNE CARPIO N A 12/01 [facility] EXERCISE CLASS [id number] [id number] Diagnos is: ICD-10- CM Y93.42 Activit y, yoga
ZANVETTOR, MARY KATE 12/01 [facility] INFRARED THERAPY [id number] [id number] Diagnos is: ICD-10- CM M25.569 Pain in unspeci fied knee
JACEK DENNISON ISTOPHER M 12/01 [facility] EXERCISE CLASS [id number] [id number] Diagnos is: ICD-10- CM Y93.42 Activit y, yoga
ZANVETTOR, MARY KATE 12/03 [facility] Outpatient Encounter [id number] IZAIAHCAR MEN F 12/04 [facility] EXERCISE CLASS [id number] [id number] Diagnos is: ICD-10- CM Y93.42 Activit y, yoga
ZANVETTOR, MARY KATE 12/07 [facility] Outpatient Encounter [id number] 12/07 [facility] EXERCISE CLASS [id number] [id number] Diagnos is: ICD-10- CM Y93.42 Activit y, yoga
ZANVETTOR, MARY KATE 12/10 [facility] Outpatient Encounter [id number] 12/11 [facility] EXERCISE CLASS [id number] [id number] Diagnos is: ICD-10- CM Y93.42 Activit y, yoga
ZANVETTOR, MARY KATE 12/14 [facility] ACUPUNCT W/O STIMUL ADDL 15M [id number] [id number] Diagnos is: ICD-10- CM M54.50 Low back pain, unspeci fied
GAUNYA,CHR ISTOPHER M 12/14 [facility] SELF [facility] MNGMENT TRAINING [id number] [id number] Diagnos is: ICD-10- CM M41.9 Scolios is, unspeci fied
DANNEN,TERESA HAEL 12/16 [place] [facility] EXERCISE CLASS [id number] Diagnos is: ICD-10- CM Y93.42 Activit y, yoga
ZANVETTOR, MARY KATE 12/17 [facility] Outpatient Encounter [id number] 12/18 [facility] OFFICE O/P EST MOD 30 MIN [id number] 1BY. 09 Diagnos is: ICD-10- CM M54.50 Low back pain, unspeci fied
STELEA,CAR MEN F 12/21 [place] [facility] Encounter [id number] 12/21 [facility] [id number] 12/21 [facility] [id number] 12/21 [facility] Encounter [id number] 12/21 [facility] Encounter [id number] 12/28 [facility] [id number] 12/28 [facility]counter [id number] 12/30 [facility] Encounter [id number] 12/30 [facility] Encounter [id number] 12/31 [facility] EXERCISE CLASS [id number] Diagnos is: ICD-10- CM Y93.42 Activit y, yoga
MARY KATE MOORE 12/31 [facility] THERAPEUTI C EXERCISES [id number] Diagnos is: ICD-10- CM M41.9 Scolios is, unspeci fied
DANTERESA CAMACHO 01/01 [place] [facility] Encounter [id number] 01/01 [facility] Encounter [id number] 01/04 [facility] Encounter [id number] 01/05 [facility] EXERCISE CLASS [id number] Diagnos is: ICD-10- CM Y93.42 Activit y, yoga
ZANVETTOR, MARY KATE 01/05 [facility] [place] THERAPEUTI C EXERCISES [id number] Diagnos is: ICD-10- CM M41.9 Scolios is, unspeci fied
DANDOUGTERESA HAEL 01/06 [place] [facility] Out[facility] Encounter [id number] 01/07 [facility] EXERCISE CLASS [id number] Diagnos is: ICD-10- CM Y93.42 Activit y, yoga
ZANVETTOR, MARY KATE 01/07 [facility] En[facility] [id number] 01/08 [facility] OFFICE O/P NEW MOD 45 MIN [id number] Diagnos is: ICD-10- CM M54.59 Other low back pain
JABIER,MEREDITH RA 01/08 [facility] En[facility] [id number] 01/08 [facility] Encounter [id number] 01/12 [facility] EXERCISE CLASS [id number] Diagnos is: ICD-10- CM Y93.42 Activit y, yoga
ZANVETTOR, MARY KATE 01/12 [facility] [id number] 01/12 [facility] Encounter [id number] 01/13 [facility] [place] SELF CARE MNGMENT TRAINING [id number] Diagnos is: ICD-10- CM M41.9 Scolios is, unspeci fied
DANNEN,TERESA HAEL 01/13 [place] [facility] EXERCISE CLASS [id number] 1. Diagnos is: ICD-10- CM Y93.42 Activit y, yoga
ZANVETTOR, MARY KATE 01/14 [facility] En[facility] [id number] 1.01/14 [facility] Out[facility] Encounter [id number] 1.01/20 [facility] THERAPEUTI C EXERCISES [id number] Diagnos is: ICD-10- CM M41.9 Scolios is, unspeci fied
DANNEN,TERESA HAEL 01/20 [place] [facility] EXERCISE CLASS [id number] Diagnos is: ICD-10- CM Y93.42 Activit y, yoga
ZANVETTOR, MARY KATE 01/21 [facility] EXERCISE CLASS [id number] Diagnos is: ICD-10- CM Y93.42 Activit y, yoga
ZANVETTOR, MARY KATE 01/25 [facility] INFRARED THERAPY [id number] Diagnos is: ICD-10- CM M79.674 Pain in right toe(s)< br/> GAUNYA,CHR ISTOPHER M 01/27 [facility] EXERCISE CLASS [id number] Diagnos is: ICD-10- CM Y93.42 Activit y, yoga
ZANVETTOR, MARY KATE 01/28 [facility] OFFICE O/P EST LOW 20 MIN [id number] Diagnos is: ICD-10- CM L60.3 Nail dystrop hy
EDGARD CARRANZA ES F 01/29 [facility] Outpatient Encounter [id number] 01/29 [facility] Outpatient Encounter [id number] 01/29 [facility] MANUAL THERAPY 1/> [place]IONS [id number] Diagnos is: ICD-10- CM M54.59 Other low back pain
VIRI EUGENE RA 02/01 [facility] Outpatient Encounter [id number] 02/01 [facility] Outpatient Encounter [id number] 02/03 [facility] INFRARED THERAPY [id number] Diagnos is: ICD-10- CM M25.561 Pain in right knee
JACEK DENNISON ISTOPHER M 02/03 [facility] Outpatient Encounter [id number] 1. IZAIAHCAR MEN F 02/04 [facility] [place] [id number] Diagnos is: ICD-10- CM H25.813 Combine d forms of age-rel ated catarac t, bilater al
VINCE MYERS 02/08 [facility] CHIROPRACT MANJ 1-2 [place] [id number] Diagnos is: ICD-10- CM M54.59 Other low back pain
VIRI EUGENE RA 02/08 [facility] FIT SPECTACLES MULTIFOCAL [id number] Diagnos is: ICD-10- CM Z46.0 Encount er for fit/adj st of spectac les and contact lenses< br/> VINCE MYERS 02/08 [facility] Outpatient Encounter [id number] 02/09 [facility] Outpatient Encounter [id number] 02/12 [facility] EXERCISE CLASS [id number] Diagnos is: ICD-10- CM Y93.42 Activit y, yoga
MARY KATE MOORE 02/15 [facility] Outpatient Encounter [id number] 02/18 [facility] HC PRO PHONE CALL 11-20 MIN [id number] Diagnos is: ICD-10- CM Z72.3 Lack of physica l exercis e
DANIELA ANDINO 02/18 [facility] Outpatient Encounter [id number]/18 [facility] Outpatient Encounter [id number] 02/19 [facility] [place] [place] [id number] Diagnos is: ICD-10- CM E66.09 Other obesity due to excess calorie s
BUTCH ANDERSON 02/24 [place] [facility] Outpatient Encounter [id number] 02/24 [facility] UNLISTED PHYSCL MED/[place] PX [id number] Diagnos is: ICD-10- CM Z72.3 Lack of physica l exercis e
FLORA COLLINS 02/26 [facility] COLLJ & INTERPJ DATA EA 30 D [id number] 1. Diagnos is: ICD-10- CM G47.33 Obstruc tive sleep apnea (adult) (pediat griselda)
REGINA CLARK 03/01 [facility] Outpatient Encounter [id number] 03/02 [facility] STRESS MGMT CLASS [id number] Diagnos is: ICD-10- CM Y93.42 Activit y, yoga
MARY KATE MOORE 03/04 [facility] HLTH BHV IVNTJ GRP EA ADDL [id number] Diagnos is: ICD-10- CM Z73.3 Stress, not elsewhe re classif ied<br/ > VIRI GAVIRIA RA 03/09 [facility] [id number] Diagnos is: ICD-10- CM Z71.89 Other specifi ed res counselor ing<br/ > JANIE LUI 03/11 [facility] Outpatient Encounter [id number] 03/15 [facility] Outpatient Encounter [id number] 1.03/18 [facility] Outpatient Encounter [id number]/18 [facility] Outpatient Encounter [id number] [id number] 03/23 [facility] Outpatient Encounter [id number] 03/24 [facility] EXERCISE CLASS [id number] [id number] Diagnos is: ICD-10- CM Y93.42 Activit y, yoga
ZANVETTOR, MARY KATE 03/25 [facility] Outpatient Encounter [id number] 04/06 [facility] Outpatient Encounter [id number] 04/06 [facility] OFFICE O/P EST MOD 30 MIN [id number] [id number] Diagnos is: ICD-10- CM M54.50 Low back pain, unspeci fied
STELEA,CAR MEN F 04/06 [place] [facility] Outpatient Encounter [id number] 04/07 [facility] EXERCISE CLASS [id number] Diagnos is: ICD-10- CM Y93.42 Activit y, yoga
ZANVETTOR, MARY KATE 04/08 [facility] EXERCISE CLASS [id number] Diagnos is: ICD-10- CM Y93.42 Activit y, yoga
ZANVETTOR, MARY KATE 04/12 [facility] Outpatient Encounter [id number] 04/14 [facility] OFF/OP CONSLTJ NEW/EST HI 55 [id number] 1. Diagnos is: ICD-10- CM M54.16 Radicul opathy, lumbar region< br/> CELIA DENNISONM S 04/15 [facility] Outpatient Encounter [id number] 1.04/15 [facility] Outpatient Encounter [id number] 1.04/16 [facility] Outpatient Encounter [id number] 04/16 [facility] QNHP OL DIG ASSMT&MGMT 5-10 [id number] 1. Diagnos is: ICD-10- CM M54.16 Radicul opathy, lumbar region< br/> JAYLYN REINA S 04/19 [facility] EXERCISE CLASS [id number] 1. Diagnos is: ICD-10- CM Y93.42 Activit y, yoga
ZANVETTOR, MARY KATE 04/19 [facility] Outpatient Encounter [id number] 1.04/21 [facility] INFRARED THERAPY [id number] 1. Diagnos is: ICD-10- CM M54.50 Low back pain, unspeci fied
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<br/ > CELIA DENNISON S 04/27 [facility] COLLJ & INTERPJ DATA EA 30 D [id number] Diagnos is: ICD-10- CM G47.39 Other sleep apnea<b r/> RAYNE CARPIO 04/27 [place] [facility] Outpatient Encounter [id number] 05/03 [facility] Outpatient Encounter [id number] 05/05 [facility] Outpatient Encounter [id number] 1.05/06 [facility] Outpatient Encounter [id number] 05/10 [facility] Outpatient Encounter [id number] 05/12 [facility] Outpatient [facility]counter [id number] 05/12 [facility] Outpatient Encounter [id number] 05/14 [facility] Outpatient Encounter [id number] 1.05/14 [facility] SELF CARE MNGMENT TRAINING [id number] Diagnos is: ICD-10- CM 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<br/ > TERESA BENDER 05/17 [place] [facility] Outpatient Encounter [id number] 05/18 [facility] Outpatient Encounter [id number] 05/21 [facility] Outpatient Encounter [id number] 05/24 [facility] Outpatient Encounter [id number] 05/24 [facility] Outpatient Encounter [id number] 05/25 [facility] Outpatient Encounter [id number]/26 [facility] Outpatient Encounter [id number] 05/31 [facility] Outpatient Encounter [id number] 05/31 [facility] EXERCISE CLASS [id number] 1. Diagnos is: ICD-10- CM Y93.42 Activit y, yoga
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
ZANVETTOR, MARY KATE 06/10 [facility] Outpatient Encounter [id number] 06/10 [facility] [place] OFFICE O/P EST LOW 20 MIN [id number] Diagnos is: ICD-10- CM L60.3 Nail dystrop hy
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<br/ > DANNEN,TERESA HAEL 06/15 [place] [facility] Outpatient Encounter [id number] [facility] Outpatient Encounter [id number] [facility] Outpatient [facility]counter [id number] 06/21 [facility] OFFICE O/P EST HI 40 MIN [id number] Diagnos is: ICD-10- CM 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 Social History Type Response Date Comment Sourc e Tobacco smoking status NHIS VA-TOBACCO NEVER USED 04/06/2024 [facility] D History of tobacco use VA-TOBACCO NEVER USED 04/08/2023 [facility] History of tobacco use VA-TOBACCO NEVER USED 08/09/2021 [facility] History of tobacco use VA-TOBACCO NEVER USED 08/18/2020 [facility] D History of tobacco use VA-TOBACCO NEVER USED 12/15/2018 [facility] [place] History of tobacco use LIFETIME NON-TOBACCO USER 06/11/2017 [facility] History of tobacco use LIFETIME NON-TOBACCO USER 01/01/2016 [facility] History of tobacco use LIFETIME NON-SMOKER 01/16/2005 [facility] History of tobacco use LIFETIME NON-SMOKER 11/29/2003 [facility] History of tobacco use LIFETIME NON-SMOKER 01/07/2001 [facility] Plan of Care List of future care activities from Department of Veterans Affairs facilities. Additional future care activities may be listed in the Assessment and Plan section. Date/Time Care Activity Care Activity Detail Facili ty 07/07/2024 AMBULATORY - MEDICINE AMBULATORY - MEDICI NE [facility] 07/23/2024 AMBULATORY - MEDICINE AMBULATORY - MEDICI [facility] [place] [facility] 08/04/2024 AMBULATORY - MEDICINE AMBULATORY - MEDICI NE [facility] [place] [facility] 08/25/2024 AMBULATORY - MEDIC[facility] [place] [facility] 09/21/2024 AMBULATORY - MEDICINE AMBULATORY - MEDICI NE [facility] 10/05/2024 AMBULATORY - MEDICINE AMBULATORY - MEDICI NE [facility] 06/01/2024 Consult Order [facility] Cons Rn Pool's Choice [facility]
--- OUTSIDE RECORDS SUMMARY | 2024-06-29 18:47 | XMS_ITS | Encounter Summary ---
Author Name [facility] [place] Address [address] [place] [address] Care Team Providers Care Tool Filer Name Role Phone ABDIRAHMAN LAKE Primary Care [...] BASIC FAMIL Y Jun 24, 2009 112 [id number] [phone] ABHILASH GARAY PATIENT ANTHEM [place]BS [place] F[place] PREFERRED PROVIDER ORGANIZAT ION (PPO) FEP BASIC FAM Jun 24, 2009 112 [id number] [phone] ABHILASH GARAY PATIENT ANTHEM BCBS [place] F[place] PREFERRED PROVIDER ORGANIZAT ION (PPO) FEP BASIC FAM Jun 24, 2009 112 [id number] [phone] ABHILASH GARAY PATIENT ANTHE[place] PREFERRED PROVIDER ORGANIZAT ION (PPO) FEP BASIC FAM Jun 24, 2009 112 [id number] [phone] ABHILASH GARAY PATIENT [place] F[place] PREFERRED PROVIDER ORGANIZAT ION (PPO) FEP BASIC FAM Jun 24, 2009 112 [id number] [phone] ABHILASH GARAY PATIENT BCBS [place] FEP PREFERRED PROVIDER ORGANIZAT ION (PPO) BASIC FAMIL Y Jun 24, 2009 112 [id number] [phone] ABHILASH GARAY PATIENT [place] PREFERRED PROVIDER ORGANIZAT ION (PPO) BASIC FAMIL Y Jun 24, 2009 [id number] ABHILASH GARAY PATIENT [place] F[place] PREFERRED PROVIDER ORGANIZAT ION (PPO) BASIC FAMIL Y Jun 24, 2009 [id number] ABHILASH GARAY PATIENT [place] F[place] DENTAL DENTAL INSURANCE BASIC Jul 12, 2009 DENTAL [id number] [phone] ABHILASH GARAY PATIENT [place] F[place] PREFERRED PROVIDER ORGANIZAT ION (PPO) BASIC FAMIL Y Jun 24, 2009 [id number] ABHILASH GARAY PATIENT [place] FEP ([id number]) PRESCRIPT ION FEPRX Jun 24, 2009 [id number] [phone] ABHILASH GARAY PATIENT [place] FEP BCBS PRESCRIPT ION CAREM AR[place] FEPRX PLAN Nov 21, 2021 [id number] ABHILASH GARAY PATIENT [place] FEPRX PLAN PRESCRIPT ION CAREM ARK FEPRX Nov 21, 2021 [id number] ABHILASH GARAY PATIENT [place]-F EP BCBS PRESCRIPT ION FEP CAREM ARK Nov 21, 2021 [id number] ABHILASH GARAY PATIENT [place]-F EP BCBS PRESCRIPT ION FEP Jun 23, 2010 [id number] RUBI GARAYNETH PATIENT MEDICARE (WN) MEDICARE () PART A Feb 22, 2020 PART A [id number] [phone] ABHILASH GARAY PATIENT MEDICARE (WN) MEDICARE () PART A Feb 22, 2020 PART A [id number] [phone] ABHILASH GARAY PATIENT MEDICARE (WNR) MEDICARE (M) PART A Feb 22, 2020 PART A [id number] ABHILASH GARAY PATIENT MEDICARE (WNR) MEDICARE (M) PART A Feb 22, 2020 PART A [id number] [phone] ABHILASH GARAY PATIENT MEDICARE (WNR) MEDICARE (M) PART A Feb 22, 2020 PART A [id number] [phone] ABHILASH GARAY PATIENT Selected Encounter This section includes the information on record at [place] for the Encounter. Date/Time Encounter Type Encounter Description Reason Provider Source Aug 01, 2023 09:42 AM Outpatient Encounter TELEPHONE TRIAGE CHANTEL BLEDSOE Encounter Template Text not used by [place] Plan of Treatment: Future Appointments (+ 6 months) and Future Tests (+/- 45 days) The Plan of Treatment section includes future care activities for the patient from all [place] treatmentfacilities. This section includes future appointments and future orders which are active, pending or scheduled. Future Appointments This section includes appointments that were scheduled to occur 6 months from the date of the Encounter, up to a maximum of 20 appointments. The data comes from all [place] treatment facilities. Appointment Date/Time Appointment Type Appointme nt Facility Name Aug 04, 2023 11:00 AM AM[place]ULATORY [place]INE [place] [facility] [place] [facility] Aug 07, 2023 01:00 PM AM[place]ULATORY [place] [facility] [place] [facility] Aug 12, 2023 11:00 AM AM[place]ULATORY [place] [facility] [place] [facility] Aug 14, 2023 01:00 PM AMBULATORY [place] [facility] [place] [facility] Aug 18, 2023 11:00 AM [place]UL[place]ORY [place] [facility] [place] [facility] Aug 21, 2023 01:00 PM [place] [facility] [place] [facility] Aug 22, 2023 08:00 AM AMBULATORY - MEDICINE [facility] Aug 25, 2023 11:00 AM AM[place]UL[place] [facility] [place] [facility] Aug 28, 2023 01:00 PM AM[place]UL[place] [facility] [place] [facility] Sep 01, 2023 11:00 AM AMBULATORY [place]ICINE [place] [facility] [place] [facility] Sep 04, 2023 01:00 PM [facility] [place] [facility] [place] [facility] Sep 08, 2023 11:00 AM AMBULATORY - MEDICINE [place] [facility] [place] [facility] Sep 11, 2023 01:00 PM AMBULATORY - [place]ICINE [place] [facility] [place] [facility] Sep 16, 2023 11:00 AM AMBULATORY - [place]ICINE [place] [facility] [place] [facility] Sep 29, 2023 11:00 AM AMBULATORY - MEDICINE [place] [facility] [place] [facility] Oct 02, 2023 01:00 PM AMBULATORY - MEDICINE [place] [facility] [place] [facility] Oct 06, 2023 11:00 AM AMBULATORY - MEDICINE [place] [facility] [place] [facility] Oct 06, 2023 12:40 PM AMBULATORY - MEDICINE [place] [facility] [place] [facility] Oct 09, 2023 01:00 PM AMBULATORY - MEDICINE [place] [facility] [place] [facility] Oct 13, 2023 11:00 AM AMBULATORY - [place]ICINE [place] [facility] [place] [facility] Vital Signs: All taken on the encounter date This section contains inpatient and outpatient Vital Signs collected on the date of the Encounter. Date/Time Temperature Pulse Blood Pressure Respiratory Rate SP02 Pain Height Weight Body Mass Index Source Aug 01, 2023 11:18 AM 96.7 93 155/66 18 95 0 250 32 [place] [facility] [place] [facility] Social History: Smoking Status (Most current) and Tobacco Use (All prior to encounter date) This section includes the most current, and the historical, smoking and tobacco- related health factors from the [place] facility where the Encounter took place. Current Smoking Status This section includes the most current smoking, or tobacco-related health factor, from the [place] facility where the Encounter took place. Date/Time Current Smoking Status Comment Facil ity Apr 08, 2023 09:12 AM [place]-TOBACCO NEVER USED [place] [facility] Tobacco Use History This section includes a history of the smoking, or tobacco-related health factors, that were collected on or before the date of the Encounter. The data comes from the [place] facility where the Encounter took place. Date/Time Smoking Status/Tobacco Use Comment F acility Aug 09, 2021 09:20 AM [place]-TOBACCO NEVER USED [place] [facility] [place] [facility] Encounter Notes: All associated encounter notes This section contains the clinical notes associated to the Encounter. Date/Time Encounter Note(s) Provider Source Aug 01, 2023 09:42 AM RN PROGRESS NOTE: LOCAL TITLE: CCC: CLINICAL TRIAGE STANDARD TITLE: RN PROGRESS NOTE DATE OF NOTE: AUG 01, 2023@09:42:42 ENTRY DATE: AUG 01, 2023@09:42:42 AUTHOR: XAVIER BLEDSOE COSIGNER: URGENCY: STATUS: COMPLETED Patient Demographics Patient Name: ABHILASH GARAY Patient Primary Address: [address] [place] [address] Patient Primary Phone: [phone] Patient : 1955 Patient Age: 68 Current Location: Home Call Back Number: [phone] Caller/Recipient Relation to Patient: Self Emergency Contact: ANNA GARAY Triage Summary Conducted triage/discussed symptoms Pain Score: 0 (No Pain) Utilized the Triage Tool: Yes Chief Complaint: Toenail Problems System WHEN: Within 2 Weeks Nurse's Recommendation / WHEN: Within 2 Weeks System WHERE: Clinic Nurse's Recommendation / WHERE: [facility] Patient Disposition Patient/Caregiver agrees to plan of care: Yes Patient WHERE: [facility] Patient WHEN: Within 2 weeks Nursing Plan and Disposition Referred Patient for In-Person Appt Transferred patient to Sched & Admin-Apt Nurse Summary Nurse Summary: Vet reports the toenail on the right great toe is ''about to fall off'' x 1 day without injury. Vet is transferred to priority scheduling and would also like a call from [facility] today to see if walk-in at [facility] is available. Clinical Contact Center Codes Clinic/Location: V1 CWM PHONE CCC RN Notes Notes & Information: Vet informed to go to UC/ED if sx persist or worsen. [facility] Triage Complete Triage Note: Phone Triage 01 Aug 2023 14:39:02 +0000 [facility] Demographics 68 y/o Male Results CC: Toenail Problems Software suggested: Within 2 Weeks Software suggested follow-up location: Clinic, consider virtual care Values and Measures Duration of CC: 1 Days Positive Responses HPI: peeling toenail HPI: yellow toenail Negative Responses Denies: HPI: ingrown toenail Denies: HPI: periungual swelling, worsening, toe Denies: HPI: periungual tenderness, worsening Denies: HPI: red streaks, from a spot on the toe Denies: HPI: skin erythema, foot or toe, worsening Denies: HPI: thickened toenail Denies: HPI: toe pain /es/ XAVIER BLEDSOE RN, MSN Signed: 08/01/2023 09:42 Receipt Acknowledged By: 08/01/2023 10:20 /es/ KASIA SMILEY LPN LICENSED PRACTICAL NURSE 08/01/2023 10:30 /es/ FERCHO MELLO RN REGISTERED NURSE XAVIER BLEDSOE [facility]
--- OUTSIDE RECORDS SUMMARY | 2024-06-29 18:47 | XMS_ITS | Encounter Summary ---
Author Name [facility] [place] Address [address] [place] [address] Care Team Providers Care Spool Worker Name Role Phone ABDIRAHMAN LAKE Primary Care [...] BASIC FAMIL Y Jun 24, 2009 [id number] [phone] ABHILASH GARAY PATIENT ANTHEM BCBS [place] F[place] PREFERRED PROVIDER ORGANIZAT ION (PPO) FEP BASIC FAM Jun 24, 2009 [id number] [phone] ABHILASH GARAY PATIENT ANTHEM BCBS [place] F[place] PREFERRED PROVIDER ORGANIZAT ION (PPO) FEP BASIC FAM Jun 24, 2009 112 [id number] [phone] ABHILASH GARAY PATIENT [place] PREFERRED PROVIDER ORGANIZAT ION (PPO) FEP BASIC FAM Jun 24, 2009 [id number] [phone] ABHILASH GARAY PATIENT [place] PREFERRED PROVIDER ORGANIZAT ION (PPO) FEP BASIC FAM Jun 24, 2009 [id number] [phone] RUBI GARAYNETH PATIENT [place]BS [place] F[place] PREFERRED PROVIDER ORGANIZAT ION (PPO) BASIC FAMIL Y Jun 24, 2009 [id number] [phone] RUBI GARAYNETH PATIENT [place] PREFERRED PROVIDER ORGANIZAT ION (PPO) BASIC FAMIL Y Jun 24, 2009 [id number] RUBI GARAYNETH PATIENT [place] PREFERRED PROVIDER ORGANIZAT ION (PPO) BASIC FAMIL Y Jun 24, 2009 [id number] RUBI GARAYNETH PATIENT [place] F[place] DENTAL DENTAL INSURANCE BASIC Jul 12, 2009 DENTAL [id number] [phone] DEJAHDANIKARUBI ACEVESNETH PATIENT [place] F[place] PREFERRED PROVIDER ORGANIZAT ION (PPO) BASIC FAMIL Y Jun 24, 2009 [id number] ABHILASH GARAY PATIENT [place] FEP ([id number]) PRESCRIPT ION FEPRX Jun 24, 2009 [id number] [phone] ABHILASH GARAY PATIENT [place] FEP BCBS PRESCRIPT ION CAREM ARK FEPRX PLAN Nov 21, 2021 [id number] ABHILASH GARAY PATIENT [place] FEPRX PLAN PRESCRIPT ION CAREM ARK FEPRX Nov 21, 2021 [id number] ABHILASH GARAY PATIENT [place]-F EP BCBS PRESCRIPT ION FEP CAREM ARK Nov 21, 2021 [id number] ABHILASH GARAY PATIENT [place]-F EP BCBS PRESCRIPT ION FEP Jun 23, 2010 [id number] RUBI GARAYNETH PATIENT MEDICARE ([facility]) MEDICARE () PART A Feb 22, 2020 PART A [id number] ABHILASH GARAY PATIENT MEDICARE (WNR) MEDICARE (M) PART A Feb 22, 2020 PART A [id number] ABHILASH GARAY PATIENT MEDICARE (WNR) MEDICARE (M) PART A Feb 22, 2020 PART A [id number] ABHILASH GARAY PATIENT MEDICARE (WNR) MEDICARE (M) PART A Feb 22, 2020 PART A [id number] ABHILASH GARAY PATIENT MEDICARE (WNR) MEDICARE (M) PART A Feb 22, 2020 PART A [id number] ABHILASH GARAY PATIENT Selected Encounter This section includes the information on record at [place] for the Encounter. Date/Time Encounter Type Encounter Description Reason Pro vider Source Aug 01, 2023 09:51 AM Outpatient Encounter ADMIN PAT ACTIVTIES (MASNONCT) IHE Encounter Template Text not used by [place] Plan of Treatment: Future Appointments (+ 6 months) and Future Tests (+/- 45 days) The Plan of Treatment section includes future care activities for the patient from all [place] treatmentfacilities. This section includes future appointments and future orders which are active, pending or scheduled. Future Appointments This section includes appointments that were scheduled to occur 6 months from the date of the Encounter, up to a maximum of 20 appointments. The data comes from all [place] treatment facilities. Appointment Date/Time Appointment Type Appointme nt Facility Name Aug 04, 2023 11:00 AM AMBULATORY - MEDICINE [place] [facility] [place] [place] [facility] Aug 07, 2023 01:00 PM AMBULATORY - MEDICINE [place] [facility] [place] [place] [facility] Aug 12, 2023 11:00 AM AMBULATORY - MEDICINE [place] [facility] [place] [facility] Aug 14, 2023 01:00 PM AMBULATORY - MEDICINE [place] [facility] [place] [facility] Aug 18, 2023 11:00 AM AMBULATORY - MEDICINE [place] [facility] [place] [facility] Aug 21, 2023 01:00 PM AMBULATORY - MEDICINE [place] [facility] [place] [facility] Aug 22, 2023 08:00 AM AMBULATORY - MEDICINE [facility] Aug 25, 2023 11:00 AM AM[place]ULATORY [place]ICINE [place] [facility] [place] [facility] Aug 28, 2023 01:00 PM AMBULATORY - MEDICINE [place] [facility] [place] [facility] Sep 01, 2023 11:00 AM AMBULATORY - MEDICINE [place] [facility] [place] [facility] Sep 04, 2023 01:00 PM AMBULATORY - MEDICINE [place] [facility] [place] [facility] Sep 08, 2023 11:00 AM AMBULATORY - [place]ICINE [place] [facility] [place] [facility] Sep 11, 2023 01:00 PM AMBULATORY - MEDICINE [place] [facility] [place] [facility] Sep 16, 2023 11:00 AM AMBULATORY - MEDICINE [place] [facility] [place] [facility] Sep 29, 2023 11:00 AM AMBULATORY - MEDICINE [place] [facility] [place] [facility] Oct 02, 2023 01:00 PM AMBULATORY - MEDICINE [place] [facility] [place] [facility] Oct 06, 2023 11:00 AM AMBULATORY - MEDICINE [place] [facility] [place] [facility] Oct 06, 2023 12:40 PM AMBULATORY - MEDICINE [place] [facility] [place] [facility] Oct 09, 2023 01:00 PM AMBULATORY - MEDICINE [place] [facility] [place] [facility] Oct 13, 2023 11:00 AM AMBULATORY - MEDICINE [place] [facility] [place] [facility] Vital Signs: All taken on the encounter date This section contains inpatient and outpatient Vital Signs collected on the date of the Encounter. Date/Time Temperature Pulse Blood Pressure Respiratory Rate SP02 Pain Height Weight Body Mass Index Source Aug 01, 2023 11:18 AM 96.7 93 155/66 18 95 0 250 32 [place] [facility] [place] [facility] Social History: Smoking Status (Most current) and Tobacco Use (All prior to encounter date) This section includes the most current, and the historical, smoking and tobacco- related health factors from the [place] facility where the Encounter took place. Current Smoking Status This section includes the most current smoking, or tobacco-related health factor, from the [place] facility where the Encounter took place. Date/Time Current Smoking Status Comment Facil ity Apr 08, 2023 09:12 AM [place]ACCO [facility] Tobacco Use History This section includes a history of the smoking, or tobacco-related health factors, that were collected on or before the date of the Encounter. The data comes from the [place] facility where the Encounter took place. Date/Time Smoking Status/Tobacco Use Comment [facility] [place] Aug 09, 2021 09:20 AM [place] [place] [facility] Encounter Notes: All associated encounter notes This section contains the clinical notes associated to the Encounter. Date/Time Encounter Note(s) Provider Source Aug 01, 2023 09:51 AM ADMINISTRATIVE NOT E: LOCAL TITLE: CCC: SCHEDULING ADMINISTRATION STANDARD TITLE: ADMINISTRATIVE NOTE DATE OF NOTE: AUG 01, 2023@09:51:13 ENTRY DATE: AUG 01, 2023@09:51:13 AUTHOR: TALIB RAVI EXP COSIGNER: URGENCY: STATUS: COMPLETED Patient Demographics Patient Name: ABHILASH GARAY Patient Primary Phone: [phone] Patient Primary [address]: [address] [place] [address] Patient : 1955 Patient Age: 68 Call Back Number: [phone] Caller/Recipient Relation to Patient: Self Scheduling Cannot Complete Scheduling Action Reason: No Appointment Available Requested Service(s): Primary Care Patient Expects Callback: Yes Scheduling Note Reason: Cannot Complete Appointment Request Open Request: None of the above Scheduling Note Comments: PER [facility] BEEF GRADER APPT WITH PCP WITHIN 2WEEKS WITH [facility] REC: GREAT RIGHT TOE FALLING OFF. 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
--- OUTSIDE RECORDS SUMMARY | 2024-06-29 18:47 | XMS_ITS | Encounter Summary ---
Author Name [facility] [place] Address [address] [place] [address] Care Team Providers Care Room Attendant Name Role Phone ABDIRAHMAN LAKE Primary Care [...] BASIC FAMIL Y Jun 24, 2009 112 [id number] [phone] ABHILASH GARAY PATIENT ANTHEM BCBS [place] F[place] PREFERRED PROVIDER ORGANIZAT ION (PPO) FEP BASIC FAM Jun 24, 2009 112 [id number] [phone] ABHILASH GARAY PATIENT ANTHEM [place]BS [place] F[place] PREFERRED PROVIDER ORGANIZAT ION (PPO) FEP BASIC FAM Jun 24, 2009 112 [id number] [phone] ABHILASH GARAY PATIENT [place] PREFERRED PROVIDER ORGANIZAT ION (PPO) FEP BASIC FAM Jun 24, 2009 112 [id number] [phone] ABHILASH GARAY PATIENT [place] F[place] PREFERRED PROVIDER ORGANIZAT ION (PPO) FEP BASIC FAM Jun 24, 2009 112 [id number] [phone] ABHILASH GARAY PATIENT [place]BS [place] F[place] PREFERRED PROVIDER ORGANIZAT ION (PPO) BASIC FAMIL Y Jun 24, 2009 [id number] ABHILASH GARAY PATIENT [place] PREFERRED PROVIDER ORGANIZAT ION (PPO) BASIC FAMIL Y Jun 24, 2009 [id number] ABHILASH GARAY PATIENT [place] FEP PREFERRED PROVIDER ORGANIZAT ION (PPO) BASIC FAMIL Y Jun 24, 2009 [id number] ABHILASH GARAY PATIENT [place] F[place] DENTAL DENTAL INSURANCE BASIC Jul 12, 2009 DENTAL [id number] ABHILASH GARAY PATIENT [place] PREFERRED PROVIDER ORGANIZAT ION (PPO) BASIC FAMIL Y Jun 24, 2009 [id number] ABHILASH GARAY PATIENT [employer] FEP ([id number]) PRESCRIPT ION FEPRX Jun 24, 2009 [id number] [phone] ABHILASH GARAY PATIENT [place] FEP BCBS PRESCRIPT ION CAREM ARK FEPRX PLAN Nov 21, 2021 [id number] ABHILASH GARAY PATIENT [employer] FEPRX PLAN PRESCRIPT ION CAREM ARK FEPRX Nov 21, 2021 [id number] ABHILASH GARAY PATIENT [employer]-F EP BCBS PRESCRIPT ION FEP CAREM ARK Nov 21, 2021 [id number] ABHILASH GARAY PATIENT [employer] EP BCBS PRESCRIPT ION FEP Jun 23, 2010 [id number] ABHILASH GARAY PATIENT MEDICARE (WN) MEDICARE () PART A Feb 22, 2020 PART A [id number] ABHILASH GARAY PATIENT MEDICARE ([facility]) MEDICARE () PART A Feb 22, 2020 PART A [id number] ABHILASH GARAY PATIENT MEDICARE (WNR) MEDICARE (M) PART A Feb 22, 2020 PART A [id number] [id number] ABHILASH GARAY PATIENT MEDICARE (WNR) MEDICARE (M) PART A Feb 22, 2020 PART A [id number] [phone] ABHILASH GARAY PATIENT MEDICARE (WNR) MEDICARE (M) PART A Feb 22, 2020 PART A [id number] [id number] ABHILASH GARAY PATIENT Selected Encounter This section includes the information on record at [place] for the Encounter. Date/Time Encounter Type Encounter Description Reason Provider Source Jul 28, 2023 11:00 AM STRESS MGMT CLASS HEALTH/WELLBEING SRVS ICD-10-CM Y93.42 Activity, PAT Yoder IHFran Encounter Template Text not used by [place] Assessments - Encounter Diagnoses This section includes the primary and secondary diagnoses documented for the Encounter. Date/Time Primary/Secondary Diagnosis Diagnosis Name Provider Source Jul 28, 2023 02:40 PM PRIMARY Activity, PEDRO Yoder [facility] [place] [facility] Plan of Treatment: Future Appointments (+ 6 months) and Future Tests (+/- 45 days) The Plan of Treatment section includes future care activities for the patient from all [place] treatmentfacilities. This section includes future appointments and future orders which are active, pending or scheduled. Future Appointments This section includes appointments that were scheduled to occur 6 months from the date of the Encounter, up to a maximum of 20 appointments. The data comes from all [place] treatment facilities. Appointment Date/Time Appointment Type Appointme nt Facility Name Jul 31, 2023 01:00 PM AMBULATORY - [place]ICINE [place] [facility] Aug 01, 2023 11:00 AM AMBULATORY [place]ICINE [place] [facility] Aug 04, 2023 11:00 AM AM[place]ULATORY [place]ICINE [place] [facility] Aug 07, 2023 01:00 PM AMBULATORY - MEDICINE [place] [facility] Aug 12, 2023 11:00 AM AM[place]ULATORY [place] MEDICINE [place] [facility] Aug 14, 2023 01:00 PM AM[facility]ULATORY - MEDICINE [place] [facility] [place] [facility] Aug 18, 2023 11:00 AM AM[facility]ULATORY [place] MEDICINE [place] [facility] [facility] Aug 21, 2023 01:00 PM AMBULATORY - MEDICINE [place] [facility] [place] [facility] Aug 22, 2023 08:00 AM [facility] Aug 25, 2023 11:00 AM AM[facility]UL[facility]ORY [facility] MEDICINE [place] [facility] [place] [facility] Aug 28, 2023 01:00 PM AMBULATORY [place] MEDICINE [place] [facility] [place] [facility] Sep 01, 2023 11:00 AM AMBULATORY [place] MEDICINE [place] [facility] [place] [facility] Sep 04, 2023 01:00 PM AMBULATORY - MEDICINE [place] [facility] [place] [facility] Sep 08, 2023 11:00 AM AMBULATORY - MEDICINE [place] [facility] [place] [facility] Sep 11, 2023 01:00 PM AMBULATORY - MEDICINE [place] [facility] [place] [facility] Sep 16, 2023 11:00 AM AM[facility]ULATORY [place] [facility]ICINE [place] [facility] [place] [facility] Sep 29, 2023 11:00 AM AMBULATORY - MEDICINE [place] [facility] [facility] Oct 02, 2023 01:00 PM AMBULATORY - MEDICINE [place] [facility] [place] [facility] Oct 06, 2023 11:00 AM AMBULATORY - MEDICINE [place] [facility] [place] [facility] Oct 06, 2023 12:40 PM AMBULATORY - MEDICINE [place] [facility] [place] [facility] Social History: Smoking Status (Most current) and Tobacco Use (All prior to encounter date) This section includes the most current, and the historical, smoking and tobacco- related health factors from the [place] facility where the Encounter took place. Current Smoking Status This section includes the most current smoking, or tobacco-related health factor, from the [place] facility where the Encounter took place. Date/Time Current Smoking Status Comment Odalis casey Apr 08, 2023 09:12 AM [place]CO [facility] [place] [facility] Tobacco Use History This section includes a history of the smoking, or tobacco-related health factors, that were collected on or before the date of the Encounter. The data comes from the [place] facility where the Encounter took place. Date/Time Smoking Status/Tobacco Use Comment Gilberto boston Aug 09, 2021 09:20 AM [place]-TOBACCO NEVER USED [facility] Encounter Notes: All associated encounter notes This section contains the clinical notes associated to the Encounter. Date/Time Encounter Note(s) Provider Source Jul 28, 2023 12:30 PM RECREATIONAL THERA PY NOTE: LOCAL TITLE: YOGA WELLBEING STANDARD TITLE: RECREATIONAL THERAPY NOTE DATE OF NOTE: JUL 28, 2023@12:30 ENTRY DATE: JUL 28, 2023@14:38:03 AUTHOR: MARY KATE MOORE EXP COSIGNER: URGENCY: [...] triangle pose, wide leg forward bend variations, [place] 2, extended side angle pose, [place] 1, plank, cobra, locust, downward facing dog, wisdom pose, contralateral limb raises, head to knee pose, bridge, reclined twist, knees to chest; Systematic Relaxation; and Gratitude. Modifications were geared toward the 's individual needs and preferences. [place] was one of eight participants in Group Yoga. He practiced all the postures offered, using a chair, yoga blocks and a yoga strap for support as needed. He was attentive to his breath throughout the session. will return to class as his schedule allows. /yunior/ ROXANNA [id number] Crm Marketing Analyst Signed: 07/28/2023 14:47 MARY KATE MOORE [place] [facility]
--- OUTSIDE RECORDS SUMMARY | 2024-06-29 18:47 | XMS_ITS | Encounter Summary ---
Author Name [facility] [place] Address [address] [place] [address] Care Team Providers Care Director Of Financial Reporting Name Role Phone ABDIRAHMAN LAKE Primary Care [...] BASIC FAMIL Y Jun 24, 2009 112 [id number] [phone] ABHILASH GARAY PATIENT ANTHEM BCBS [place] FEP PREFERRED PROVIDER ORGANIZAT ION (PPO) FEP BASIC FAM Jun 24, 2009 112 [id number] [phone] ABHILASH GARAY PATIENT ANTHEM [place] PREFERRED PROVIDER ORGANIZAT ION (PPO) FEP BASIC FAM Jun 24, 2009 112 [id number] [phone] ABHILASH GARAY PATIENT [place] PREFERRED PROVIDER ORGANIZAT ION (PPO) FEP BASIC FAM Jun 24, 2009 112 [id number] [phone] ABHILASH GARAY PATIENT [place] PREFERRED PROVIDER ORGANIZAT ION (PPO) FEP BASIC FAM Jun 24, 2009 112 [id number] [phone] ABHILASH GARAY PATIENT [place] PREFERRED PROVIDER ORGANIZAT ION (PPO) BASIC FAMIL Y Jun 24, 2009 112 [id number] ABHILASH GARAY PATIENT [place] PREFERRED PROVIDER ORGANIZAT ION (PPO) BASIC FAMIL Y Jun 24, 2009 112 [id number] [phone] ABHILASH GARAY PATIENT [place] F[place] PREFERRED PROVIDER ORGANIZAT ION (PPO) BASIC FAMIL Y Jun 24, 2009 112 [id number] [phone] ABHILASH GARAY PATIENT [place] F[place] DENTAL DENTAL INSURANCE BASIC Jul 12, 2009 DENTAL [id number] [phone] ABHILASH GARAY PATIENT [place] PREFERRED PROVIDER ORGANIZAT ION (PPO) BASIC FAMIL Y Jun 24, 2009 112 [id number] [phone] ABHILASH GARAY PATIENT [employer] FEP ([id number]) PRESCRIPT ION FEPRX Jun 24, 2009 [id number] [phone] ABHILASH GARAY PATIENT [employer] FEP BCBS PRESCRIPT ION CAREM ARK FEPRX PLAN Nov 21, 2021 [id number] ABHILASH GARAY PATIENT [employer] FEPRX PLAN PRESCRIPT ION CAREM ARK FEPRX Nov 21, 2021 [id number] ABHILASH GARAY PATIENT [employer]-F EP BCBS PRESCRIPT ION FEP CAREM ARK Nov 21, 2021 [id number] ABHILASH GARAY PATIENT [employer]-[place] EP BCBS PRESCRIPT ION FEP Jun 23, 2010 [id number] RUBI GARAYNETH PATIENT MEDICARE (WN) MEDICARE () PART A Feb 22, 2020 PART A [id number] ABHILASH GARAY PATIENT MEDICARE (WN) MEDICARE () PART A Feb 22, 2020 PART A [id number] ABHILASH GARAY PATIENT MEDICARE (WNR) MEDICARE (M) PART A Feb 22, 2020 PART A [id number] [id number] [phone] ABHILASH GARAY PATIENT MEDICARE (WNR) MEDICARE (M) PART A Feb 22, 2020 PART A [id number] ABHILASH GARAY PATIENT MEDICARE (WNR) MEDICARE (M) PART A Feb 22, 2020 PART A [id number] [id number] [phone] ABHILASH GARAY PATIENT Selected Encounter This section includes the information on [place] for the Encounter. Date/Time Encounter Type Encounter Description Reason Provider Source Jul 31, 2023 01:00 PM EXERCISE CLASS HEALTH/WELLBEING SRVS ICD-10-CM Y93.42 Activity, PAT Yoder IHFran Encounter Template Text not used by [place] Assessments - Encounter Diagnoses This section includes the primary and secondary diagnoses documented for the Encounter. Date/Time Primary/Secondary Diagnosis Diagnosis Name Provider Source Jul 31, 2023 02:52 PM PRIMARY Activity, PEDRO Yoder [facility] [place] [facility] Plan of Treatment: Future Appointments (+ 6 months) and Future Tests (+/- 45 days) The Plan of Treatment section includes future care activities for the patient from all [place] treatmentfacilities. This section includes future appointments and future orders which are active, pending or scheduled. Future Appointments This section includes appointments that were scheduled to occur 6 months from the date of the Encounter, up to a maximum of 20 appointments. The data comes from all [place] treatment facilities. Appointment Date/Time Appointment Type Appointme nt Facility Name Aug 01, 2023 11:00 AM AMBULATORY - [place]ICINE [place] [facility] Aug 04, 2023 11:00 AM AMBULATORY - [place]ICINE [place] [facility] Aug 07, 2023 01:00 PM AMBULATORY - [place]ICINE [place] [facility] Aug 12, 2023 11:00 AM AMBULATORY - [place]ICINE [place] [facility] Aug 14, 2023 01:00 PM AMBULATORY - MEDICINE [place] [facility] [place] [place] [facility] Aug 18, 2023 11:00 AM AMBULATORY - MEDICINE [place] [facility] [place] [place] [facility] Aug 21, 2023 01:00 PM AMBULATORY - MEDICINE [place] [facility] [place] [facility] Aug 22, 2023 08:00 AM AM[facility]ULATORY - MEDICINE [facility] Aug 25, 2023 11:00 AM AMBULATORY - MEDICINE [place] [facility] [place] [place] [facility] Aug 28, 2023 01:00 PM AMBULATORY - MEDICINE [place] [facility] [place] [facility] Sep 01, 2023 11:00 AM AMBULATORY - MEDICINE [place] [facility] [place] [place] [facility] Sep 04, 2023 01:00 PM AMBULATORY - MEDICINE [place] [facility] [place] [place] [facility] Sep 08, 2023 11:00 AM AMBULATORY - MEDICINE [place] [facility] [place] [place] [facility] Sep 11, 2023 01:00 PM AMBULATORY - MEDICINE [place] [facility] [place] [place] [facility] Sep 16, 2023 11:00 AM AMBULATORY - MEDICINE [place] [facility] [place] [facility] Sep 29, 2023 11:00 AM AMBULATORY - MEDICINE [place] [facility] [place] [facility] Oct 02, 2023 01:00 PM AMBULATORY - MEDICINE [place] [facility] [place] [facility] Oct 06, 2023 11:00 AM AMBULATORY - MEDICINE [place] [facility] [place] [facility] Oct 06, 2023 12:40 PM AMBULATORY - MEDICINE [place] [facility] [place] [place] [facility] Oct 09, 2023 01:00 PM AMBULATORY - MEDICINE [place] [facility] [place] [place] [facility] Social History: Smoking Status (Most current) and Tobacco Use (All prior to encounter date) This section includes the most current, and the historical, smoking and tobacco- related health factors from the [place] facility where the Encounter took place. Current Smoking Status This section includes the most current smoking, or tobacco-related health factor, from the [place] facility where the Encounter took place. Date/Time Current Smoking Status Comment Odalis casey Apr 08, 2023 09:12 AM VA-TOBACCO NEVER USED [place] [facility] Tobacco Use History This section includes a history of the smoking, or tobacco-related health factors, that were collected on or before the date of the Encounter. The data comes from the [place] facility where the Encounter took place. Date/Time Smoking Status/Tobacco Use Comment F darvin Aug 09, 2021 09:20 AM [place]-TOBACCO NEVER USED [facility] Encounter Notes: All associated encounter notes This section contains the clinical notes associated to the Encounter. Date/Time Encounter Note(s) Provider Source Jul 31, 2023 02:30 PM RECREATIONAL THERA PY NOTE: LOCAL TITLE: YOGA WELLBEING STANDARD TITLE: RECREATIONAL THERAPY NOTE DATE OF NOTE: JUL 31, 2023@14:30 ENTRY DATE: JUL 31, 2023@14:51:45 AUTHOR: MARY KATE MOORE EXP COSIGNER: URGENCY: STATUS: COMPLETED Group Yoga Class Total time: 60 minutes Class Focus: Breath awareness, mindful movement, relaxation, and gratitude to balance the nervous system and enhance overall well-being. The Practice: Longhana pranayama to help activate the relaxation response; postures that included, but were not limited to, moving warm-up, half sun salutation, sun salutation variations, tree, triangle pose, wide leg forward bend variations, [place] 2, extended side angle pose, [place] 1, plank, cobra, locust, downward facing dog, wisdom pose, contralateral limb raises, head to knee pose, bridge, reclined twist, knees to chest; Systematic Relaxation; and Gratitude. Modifications were geared toward the [place]'s individual needs and preferences. was one of nine participants in Group Yoga. He practiced all the postures offered, using a chair, yoga blocks, and a yoga strap for support as needed. He was attentive to his breath throughout the session. [place] will return to class as his schedule allows. /yunior/ MARY KATE MOORE, [id number] Pets Salesperson Signed: 07/31/2023 14:56 MARY KATE MOORE [facility]
--- OUTSIDE RECORDS SUMMARY | 2024-06-29 18:48 | XMS_ITS | Encounter Summary ---
Author Name [facility] [place] Address [address] [place] [address] Care Team Providers Care Typer Name Role Phone ABDIRAHMAN LAKE Primary Care Provider [employer] Insurance Providers: All historical and current Section [...] BASIC FAMIL Y Jun 24, 2009 112 [id number] [phone] ABHILASH GARAY PATIENT ANTHEM BCBS [place] FEP PREFERRED PROVIDER ORGANIZAT ION (PPO) FEP BASIC FAM Jun 24, 2009 112 [id number] [phone] ABHILASH GARAY PATIENT ANTHEM [place] PREFERRED PROVIDER ORGANIZAT ION (PPO) FEP BASIC FAM Jun 24, 2009 112 [id number] [phone] ABHILASH GARAY PATIENT AN[place] PREFERRED PROVIDER ORGANIZAT ION (PPO) FEP BASIC FAM Jun 24, 2009 112 [id number] [phone] ABHILASH GARAY PATIENT [place] PREFERRED PROVIDER ORGANIZAT ION (PPO) FEP BASIC FAM Jun 24, 2009 112 [id number] [phone] ABHILASH GARAY PATIENT [place] PREFERRED PROVIDER ORGANIZAT ION (PPO) BASIC FAMIL Y Jun 24, 2009 [id number] ABHILASH GARAY PATIENT [place] PREFERRED PROVIDER ORGANIZAT ION (PPO) BASIC FAMIL Y Jun 24, 2009 [id number] [phone] ABHILASH GARAY PATIENT [place] F[place] PREFERRED PROVIDER ORGANIZAT ION (PPO) BASIC FAMIL Y Jun 24, 2009 112 [id number] [phone] ABHILASH GARAY PATIENT [place] DENTAL DENTAL INSURANCE BASIC Jul 12, 2009 DENTAL [id number] ABHILASH GARAY PATIENT [place] PREFERRED PROVIDER ORGANIZAT ION (PPO) BASIC FAMIL Y Jun 24, 2009 [id number] ABHILASH GARAY PATIENT [employer] FEP ([id number]) PRESCRIPT ION FEPRX Jun 24, 2009 [id number] [phone] ABHILASH GARAY PATIENT [place] FEP BCBS PRESCRIPT ION CAREM ARK FEPRX PLAN Nov 21, 2021 [id number] ABHILASH GARAY PATIENT [employer] FEPRX PLAN PRESCRIPT ION CAREM ARK FEPRX Nov 21, 2021 [id number] ABHILASH GARAY PATIENT [employer]-F EP BCBS PRESCRIPT ION FEP CAREM ARK Nov 21, 2021 [id number] ABHILASH GARAY PATIENT [employer] EP BCBS PRESCRIPT ION FEP Jun 23, 2010 [id number] ABHILASH GARAY PATIENT MEDICARE (WN) MEDICARE () PART A Feb 22, 2020 PART A [id number] ABHILASH GARAY PATIENT MEDICARE ([facility]) MEDICARE () PART A Feb 22, 2020 PART A [id number] [id number] ABHILASH GARAY PATIENT MEDICARE (WNR) MEDICARE (M) PART A Feb 22, 2020 PART A [id number] [phone] ABHILASH GARAY PATIENT MEDICARE (WNR) MEDICARE (M) PART A Feb 22, 2020 PART A [id number] ABHILASH GARAY PATIENT MEDICARE (WNR) MEDICARE (M) PART A Feb 22, 2020 PART A [id number] ABHILASH GARAY PATIENT Selected Encounter This section includes the information on record at [place] for the Encounter. Date/Time Encounter Type Encounter Description Reason Provider Source Aug 04, 2023 11:00 AM STRESS MGMT CLASS HEALTH/WELLBEING SRVS ICD-10-CM Y93.42 Activity, PAT Yoder IHFran Encounter Template Text not used by [place] Assessments - Encounter Diagnoses This section includes the primary and secondary diagnoses documented for the Encounter. Date/Time Primary/Secondary Diagnosis Diagnosis Name Provider Source Aug 04, 2023 03:15 PM PRIMARY Activity, PEDRO Yoder [facility] [place] [facility] Plan of Treatment: Future Appointments (+ 6 months) and Future Tests (+/- 45 days) The Plan of Treatment section includes future care activities for the patient from all [place] treatmentfacilities. This section includes future appointments and future orders which are active, pending or scheduled. Future Appointments This section includes appointments that were scheduled to occur 6 months from the date of the Encounter, up to a maximum of 20 appointments. The data comes from all [place] treatment facilities. Appointment Date/Time Appointment Type Appointme nt Facility Name Aug 07, 2023 01:00 PM AMBULATORY - [place]ICINE [place] [facility] Aug 12, 2023 11:00 AM AM[place]ULATORY [place] [facility] Aug 14, 2023 01:00 PM AM[place]ULATORY [place] [facility] Aug 18, 2023 11:00 AM AM[place]ULATORY [place] [facility] Aug 21, 2023 01:00 PM AM[facility]ULATORY [place]ICINE [place] [facility] Aug 22, 2023 08:00 AM AMBULATORY - MEDICINE [place] Aug 25, 2023 11:00 AM AMBULATORY - MEDICINE [place] [facility] [place] [facility] Aug 28, 2023 01:00 PM AMBULATORY - MEDICINE [place] [facility] [place] [facility] Sep 01, 2023 11:00 AM AMBULATORY - [facility]ICINE [place] [facility] [place] [place] [facility] Sep 04, 2023 01:00 PM AMBULATORY - MEDICINE [place] [facility] [place] [facility] Sep 08, 2023 11:00 AM AM[facility]ULATORY [place] [facility] [place] [facility] Sep 11, 2023 01:00 PM AM[facility]ULATORY - [facility]ICINE [place] [facility] [place] [place] [facility] Sep 16, 2023 11:00 AM AM[facility]AT[facility] [place] [facility] [place] [facility] Sep 29, 2023 11:00 AM AMBULATORY - [facility]ICINE [place] [facility] [place] [facility] Oct 02, 2023 01:00 PM AMBULATORY - [facility]ICINE [place] [facility] [place] [place] [facility] Oct 06, 2023 11:00 AM AMBULATORY - [facility]ICINE [place] [facility] [place] [place] [facility] Oct 06, 2023 12:40 PM AM[facility]ULATORY [place]ICINE [place] [facility] [place] [place] [facility] Oct 09, 2023 01:00 PM AMBULATORY - MEDICINE [place] [facility] [place] [facility] Oct 13, 2023 11:00 AM AM[facility]ATORY [place] [facility]INE [place] [facility] [place] [place] [facility] Oct 16, 2023 01:00 PM AMBULATORY - [place]ICINE [place] [facility] [place] [facility] Social History: Smoking Status (Most current) and Tobacco Use (All prior to encounter date) This section includes the most current, and the historical, smoking and tobacco- related health factors from the [place] facility where the Encounter took place. Current Smoking Status This section includes the most current smoking, or tobacco-related health factor, from the [place] facility where the Encounter took place. Date/Time Current Smoking Status Comment Odalis casey Apr 08, 2023 09:12 AM VA-TOBACCO [facility] [place] [facility] Tobacco Use History This section includes a history of the smoking, or tobacco-related health factors, that were collected on or before the date of the Encounter. The data comes from the [place] facility where the Encounter took place. Date/Time Smoking Status/Tobacco Use Comment Gilberto boston Aug 09, 2021 09:20 AM [place]-TOBACCO NEVER USED [facility] Encounter Notes: All associated encounter notes This section contains the clinical notes associated to the Encounter. Date/Time Encounter Note(s) Provider Source Aug 04, 2023 12:00 PM RECREATIONAL THERA PY NOTE: LOCAL TITLE: YOGA WELLBEING STANDARD TITLE: RECREATIONAL THERAPY NOTE DATE OF NOTE: AUG 04, 2023@12:00 ENTRY DATE: AUG 04, 2023@15:13:07 AUTHOR: MARY KATE MOORE EXP COSIGNER: URGENCY: [...] triangle pose, wide leg forward bend variations, [place] 2, extended side angle pose, [place] 1, plank, cobra, locust, downward facing dog, wisdom pose, contralateral limb raises, head to knee pose, bridge, reclined twist, knees to chest; Systematic Relaxation; and Gratitude. Modifications were geared toward the 's individual needs and preferences. [place] was one of nine participants in Group Yoga. He practiced all the postures offered, using a chair, yoga blocks and a yoga strap for support as needed. He was attentive to his breath throughout the session. [place] will return to class as his schedule allows. /yunior/ MARY KATE MOORE, [id number] Media Operator Signed: 08/04/2023 15:29 MARY KATE MOORE [facility]
--- OUTSIDE RECORDS SUMMARY | 2024-06-29 18:48 | XMS_ITS ---
Author Name [facility] [place] [facility] [place] Address [address] [place] [address] Care Team Providers Care Finish Grinder Name Role Phone ABDIRAHMAN LAKE Primary Care [...] BASIC FAMIL Y Jun 24, 2009 112 [id number] [phone] ABHILASH GARAY PATIENT ANTHEM [place]BS [place] F[place] PREFERRED PROVIDER ORGANIZAT ION (PPO) FEP BASIC FAM Jun 24, 2009 112 [id number] [phone] ABHILASH GARAY PATIENT ANTHEM BCBS [place] FEP PREFERRED PROVIDER ORGANIZAT ION (PPO) FEP BASIC FAM Jun 24, 2009 112 [id number] [phone] ABHILASH GARAY PATIENT ANTHEM [place] F[place] PREFERRED PROVIDER ORGANIZAT ION (PPO) FEP BASIC FAM Jun 24, 2009 112 [id number] [phone] ABHILASH GARAY PATIENT [place] FEP PREFERRED PROVIDER ORGANIZAT ION (PPO) FEP BASIC FAM Jun 24, 2009 112 [id number] [phone] ABHILASH GARAY PATIENT [place]BS [place] FEP PREFERRED PROVIDER ORGANIZAT ION (PPO) BASIC FAMIL Y Jun 24, 2009 [id number] ABHILASH GARAY PATIENT [place] PREFERRED PROVIDER ORGANIZAT ION (PPO) BASIC FAMIL Y Jun 24, 2009 112 [id number] ABHILASH GARAY PATIENT [place] FEP PREFERRED PROVIDER ORGANIZAT ION (PPO) BASIC FAMIL Y Jun 24, 2009 112 [id number] ABHILASH GARAY PATIENT [place] FEP DENTAL DENTAL INSURANCE BASIC Jul 12, 2009 DENTAL [id number] [phone] ABHILASH GARAY PATIENT [place] F[place] PREFERRED PROVIDER ORGANIZAT ION (PPO) BASIC FAMIL Y Jun 24, 2009 112 [id number] [phone] ABHILASH GARAY PATIENT [place] FEP ([id number]) PRESCRIPT ION FEPRX Jun 24, 2009 [id number] [phone] ABHILASH GARAY PATIENT [place] FEP BCBS PRESCRIPT ION CAREM ARK FEPRX PLAN Nov 21, 2021 [id number] ABHILASH GARAY PATIENT [place] FEPRX PLAN PRESCRIPT ION CAREM ARK FEPRX Nov 21, 2021 [id number] ABHILASH GARAY PATIENT [place]-F [place] BCBS PRESCRIPT ION FEP CAREM ARK Nov 21, 2021 [id number] ABHILASH GARAY PATIENT [place]-F [place] BCBS PRESCRIPT ION FEP Jun 23, 2010 [id number] RUBI GARAYNETH PATIENT MEDICARE (WN) MEDICARE () PART A Feb 22, 2020 PART A [id number] [phone] ABHILASH GARAY PATIENT MEDICARE (WN) MEDICARE () PART A Feb 22, 2020 PART A [id number] ABHILASH GARAY PATIENT MEDICARE (WNR) MEDICARE (M) PART A Feb 22, 2020 PART A [id number] [phone] ABHILASH GARAY PATIENT MEDICARE (WNR) MEDICARE (M) PART A Feb 22, 2020 PART A [id number] ABHILASH GARAY PATIENT MEDICARE (WNR) MEDICARE (M) PART A Feb 22, 2020 PART A [id number] [phone] ABHILASH GARAY PATIENT Selected Encounter This section includes the information on record at [place] for the Encounter. Date/Time Encounter Type Encounter Description Reason Provider Source Aug 07, 2023 01:00 PM EXERCISE CLASS HEALTH/WELLBEING [facility]VS ICD-10-CM Y93.42 Activity, PAT Yoder IHFran Encounter Template Text not used by [place] Assessments - Encounter Diagnoses This section includes the primary and secondary diagnoses documented for the Encounter. Date/Time Primary/Secondary Diagnosis Diagnosis Name Provider Source Aug 07, 2023 02:42 PM PRIMARY Activity, PEDRO Yoder [facility] [place] [facility] Plan of Treatment: Future Appointments (+ 6 months) and Future Tests (+/- 45 days) The Plan of Treatment section includes future care activities for the patient from all [place] treatmentfacilities. This section includes future appointments and future orders which are active, pending or scheduled. Future Appointments This section includes appointments that were scheduled to occur 6 months from the date of the Encounter, up to a maximum of 20 appointments. The data comes from all [place] treatment facilities. Appointment Date/Time Appointment Type Appointme nt Facility Name Aug 12, 2023 11:00 AM AMBULATORY - [place]ICINE [place] [facility] [place] [facility] Aug 14, 2023 01:00 PM AM[facility]UL[facility] [place] [facility] [facility] [place] [facility] Aug 18, 2023 11:00 AM AM[facility]ULATORY [facility]ICINE [facility] [place] [facility] Aug 21, 2023 01:00 PM AM[facility]ULATORY [place] [facility]INE [place] [facility] [place] [facility] Aug 22, 2023 08:00 AM AM[facility]UL[place]ORY - MEDICINE [place] Aug 25, 2023 11:00 AM [facility] [place] [facility] [place] [facility] Aug 28, 2023 01:00 PM [facility] [place] [facility] Sep 01, 2023 11:00 AM AM[facility]UL[facility]ORY [facility]INE [facility] [place] [facility] Sep 04, 2023 01:00 PM AM[facility]ULATORY [facility]ICINE [facility] [place] [facility] Sep 08, 2023 11:00 AM AM[facility]ORY [facility] [place] [facility] Sep 11, 2023 01:00 PM AM[facility]ULATORY [facility]ICINE [facility] [place] [facility] Sep 16, 2023 11:00 AM AM[facility]ULATORY [facility]INE [facility] [place] [facility] Sep 29, 2023 11:00 AM AM[facility]ULATORY [facility]INE [facility] [place] [facility] Oct 02, 2023 01:00 PM AM[facility]ULATORY [facility]INE [facility] [place] [facility] Oct 06, 2023 11:00 AM AM[facility]ULATORY [facility]ICINE [facility] [place] [facility] Oct 06, 2023 12:40 PM AM[facility]ULATORY - [facility]ICINE [facility] [place] [facility] Oct 09, 2023 01:00 PM AMBULATORY - [facility]ICINE [facility] [place] [facility] Oct 13, 2023 11:00 AM AM[facility]ULATORY [facility]ICINE [facility] [place] [facility] Oct 16, 2023 01:00 PM AM[facility]ULATORY [facility]ICINE [facility] [place] [facility] Oct 20, 2023 11:00 AM AM[facility]ULATORY [facility]ICINE [facility] [place] [facility] Social History: Smoking Status (Most current) and Tobacco Use (All prior to encounter date) This section includes the most current, and the historical, smoking and tobacco- related health factors from the [place] facility where the Encounter took place. Current Smoking Status This section includes the most current smoking, or tobacco-related health factor, from the [place] facility where the Encounter took place. Date/Time Current Smoking Status Comment Facil ity Apr 08, 2023 09:12 AM VA-TOBACCO NEVER USED [place] [facility] [place] [facility] Tobacco Use History This section includes a history of the smoking, or tobacco-related health factors, that were collected on or before the date of the Encounter. The data comes from the [place] facility where the Encounter took place. Date/Time Smoking Status/Tobacco Use Comment F dar[place] Aug 09, 2021 09:20 AM [place]-TOBACCO NEVER USED [facility] Encounter Notes: All associated encounter notes This section contains the clinical notes associated to the Encounter. Date/Time Encounter Note(s) Provider Source Aug 07, 2023 02:30 PM RECREATIONAL THERA PY NOTE: LOCAL TITLE: YOGA WELLBEING STANDARD TITLE: RECREATIONAL THERAPY NOTE DATE OF NOTE: AUG 07, 2023@14:30 ENTRY DATE: AUG 07, 2023@14:42:04 AUTHOR: MARY KATE MOORE EXP COSIGNER: URGENCY: [...] triangle pose, wide leg forward bend variations, [place] 2, extended side angle pose, [place] 1, plank, cobra, locust, downward facing dog, wisdom pose, contralateral limb raises, head to knee pose, bridge, reclined twist, knees to chest; Systematic Relaxation; and Gratitude. Modifications were geared toward the [place]'s individual needs and preferences. [place] was one of nine participants in Group Yoga. He practiced all the postures offered, using a chair, yoga blocks, and a yoga strap for support as needed. He was attentive to his breath throughout the session. [place] will return to class as his schedule allows. /yunior/ MARY KATE MOORE, [id number] Memory Care Program Director Signed: 08/07/2023 14:46 MARY KATE MOORE [facility]
--- OUTSIDE RECORDS SUMMARY | 2024-06-29 18:48 | XMS_ITS | Encounter Summary ---
Author Name [facility] [place] [facility] [place] [facility] [place] Address [address] [place] [address] Care Team Providers Care Underliner Name Role Phone ABDIRAHMAN LAKE Primary Care [...] BASIC FAMIL Y Jun 24, 2009 112 [id number] [phone] ABHILASH GARAY PATIENT ANTHEM BCBS [place] F[place] PREFERRED PROVIDER ORGANIZAT ION (PPO) FEP BASIC FAM Jun 24, 2009 112 [id number] [phone] ABHILASH GRAAY PATIENT ANTHEM [place] F[place] PREFERRED PROVIDER ORGANIZAT ION (PPO) FEP BASIC FAM Jun 24, 2009 112 [id number] [phone] ABHILASH GARAY PATIENT [place] PREFERRED PROVIDER ORGANIZAT ION (PPO) FEP BASIC FAM Jun 24, 2009 112 [id number] [phone] ABHILASH GARAY PATIENT [place] PREFERRED PROVIDER ORGANIZAT ION (PPO) FEP BASIC FAM Jun 24, 2009 112 [id number] [phone] ABHILASH GARAY PATIENT [place] F[place] PREFERRED PROVIDER ORGANIZAT ION (PPO) BASIC FAMIL Y Jun 24, 2009 [id number] ABHILASH GARAY PATIENT [place] PREFERRED PROVIDER ORGANIZAT ION (PPO) BASIC FAMIL Y Jun 24, 2009 [id number] ABHILASH GARAY PATIENT [place] F[place] PREFERRED PROVIDER ORGANIZAT ION (PPO) BASIC FAMIL Y Jun 24, 2009 [id number] ABHILASH GARAY PATIENT [place] F[place] DENTAL DENTAL INSURANCE BASIC Jul 12, 2009 DENTAL [id number] ABHILASH GARAY PATIENT [place] PREFERRED PROVIDER ORGANIZAT ION (PPO) BASIC FAMIL Y Jun 24, 2009 [id number] ABHILASH GARAY PATIENT [employer] FEP ([id number]) PRESCRIPT ION FEPRX Jun 24, 2009 [id number] [phone] ABHILASH GARAY PATIENT [place] FEP BCBS PRESCRIPT ION CAREM ARK FEPRX PLAN Nov 21, 2021 [id number] ABHILASH GARAY PATIENT [employer] FEPRX PLAN PRESCRIPT ION CAREM ARK FEPRX Nov 21, 2021 [id number] ABHILASH GARAY PATIENT [place]-F EP BCBS PRESCRIPT ION FEP CAREM ARK Nov 21, 2021 [id number] ABHILASH GARAY PATIENT [place]-F EP BCBS PRESCRIPT ION FEP Jun 23, 2010 [id number] RUBI GARAYNETH PATIENT MEDICARE (WN) MEDICARE () PART A Feb 22, 2020 PART A [id number] ABHILASH GARAY PATIENT MEDICARE (WN) MEDICARE () PART A Feb 22, 2020 PART A [id number] [phone] ABHILASH GARAY PATIENT MEDICARE (WNR) MEDICARE (M) PART A Feb 22, 2020 PART A [id number] ABHILASH GARAY PATIENT MEDICARE (WNR) MEDICARE (M) PART A Feb 22, 2020 PART A [id number] [id number] ABHILASH GARAY PATIENT MEDICARE (WNR) MEDICARE (M) PART A Feb 22, 2020 PART A [id number] ABHILASH GARAY PATIENT Selected Encounter This section includes the information on record at [place] for the Encounter. Date/Time Encounter Type Encounter Description Reason Provider Source Aug 12, 2023 11:00 AM EXERCISE CLASS HEALTH/WELLBEING [facility]VS ICD-10-CM Y93.42 Activity, PAT Yoder IHFran Encounter Template Text not used by [place] Assessments - Encounter Diagnoses This section includes the primary and secondary diagnoses documented for the Encounter. Date/Time Primary/Secondary Diagnosis Diagnosis Name Provider Source Aug 12, 2023 02:53 PM PRIMARY Activity, PEDRO Yoder [facility] [place] [facility] Plan of Treatment: Future Appointments (+ 6 months) and Future Tests (+/- 45 days) The Plan of Treatment section includes future care activities for the patient from all [place] treatmentfacilities. This section includes future appointments and future orders which are active, pending or scheduled. Future Appointments This section includes appointments that were scheduled to occur 6 months from the date of the Encounter, up to a maximum of 20 appointments. The data comes from all [place] treatment facilities. Appointment Date/Time Appointment Type Appointme nt Facility Name Aug 14, 2023 01:00 PM AMBULATORY - [place]ICINE [place] [facility] [place] [facility] Aug 18, 2023 11:00 AM AMBULATORY - MEDICINE [place] [facility] [place] [facility] Aug 21, 2023 01:00 PM AMBULATORY - MEDICINE [place] [facility] [place] [facility] Aug 22, 2023 08:00 AM AMBULATORY - MEDICINE [facility] Aug 25, 2023 11:00 AM AMBULATORY - MEDICINE [place] [facility] [place] [facility] Aug 28, 2023 01:00 PM AMBULATORY - MEDICINE [place] [facility] [place] [facility] Sep 01, 2023 11:00 AM AMBULATORY - MEDICINE [facility] [place] [facility] Sep 04, 2023 01:00 PM AMBULATORY - MEDICINE [facility] [place] [facility] Sep 08, 2023 11:00 AM AMBULATORY - [facility]ICINE [facility] [place] [facility] Sep 11, 2023 01:00 PM AMBULATORY - [facility]ICINE [facility] [place] [facility] Sep 16, 2023 11:00 AM AMBULATORY - [facility]ICINE [facility] [place] [facility] Sep 29, 2023 11:00 AM AMBULATORY - [facility]ICINE [facility] [place] [facility] Oct 02, 2023 01:00 PM AMBULATORY - [facility]ICINE [facility] [place] [facility] Oct 06, 2023 11:00 AM AMBULATORY - [facility]ICINE [facility] [place] [facility] Oct 06, 2023 12:40 PM AMBULATORY - [facility]ICINE [facility] [place] [facility] Oct 09, 2023 01:00 PM AMBULATORY - [facility]ICINE [facility] [place] [facility] Oct 13, 2023 11:00 AM AMBULATORY - [facility]ICINE [facility] [place] [facility] Oct 16, 2023 01:00 PM AMBULATORY - MEDICINE [facility] [place] [facility] Oct 20, 2023 11:00 AM AM[facility]ULATORY [facility]ICINE [facility] [place] [facility] October 23, 2023 01:00 PM AMBULATORY - MEDICINE [facility] [place] [facility] Social History: Smoking Status (Most current) and Tobacco Use (All prior to encounter date) This section includes the most current, and the historical, smoking and tobacco- related health factors from the [place] facility where the Encounter took place. Current Smoking Status This section includes the most current smoking, or tobacco-related health factor, from the [place] facility where the Encounter took place. Date/Time Current Smoking Status Comment Facil ity Apr 08, 2023 09:12 AM VA-TOBACCO NEVER USED [place] [facility] [place] [facility] Tobacco Use History This section includes a history of the smoking, or tobacco-related health factors, that were collected on or before the date of the Encounter. The data comes from the [place] facility where the Encounter took place. Date/Time Smoking Status/Tobacco Use Comment F acility Aug 09, 2021 09:20 AM [place]-TOBACCO NEVER USED [facility] Encounter Notes: All associated encounter notes This section contains the clinical notes associated to the Encounter. Date/Time Encounter Note(s) Provider Source Aug 12, 2023 02:45 PM RECREATIONAL THERA PY NOTE: LOCAL TITLE: YOGA WELLBEING STANDARD TITLE: RECREATIONAL THERAPY NOTE DATE OF NOTE: AUG 12, 2023@14:45 ENTRY DATE: AUG 12, 2023@14:53:06 AUTHOR: MARY KATE MOORE EXP COSIGNER: URGENCY: [...] triangle pose, wide leg forward bend variations, [place] 2, extended side angle pose, [place] 1, plank, cobra, locust, downward facing dog, wisdom pose, contralateral limb raises, head to knee pose, bridge, reclined twist, knees to chest; Systematic Relaxation; and Gratitude. Modifications were geared toward the [place]'s individual needs and preferences. [place] was one of thirteen participants in Group Yoga. He practiced all the postures offered, using a chair, yoga blocks, and a yoga strap for support as needed. He was attentive to his breath throughout the session. will return to class as his schedule allows. /yunior/ MARY KATE MOORE, [id number] Political Science Professor Signed: 08/12/2023 15:00 MARY KATE MOORE [facility]
--- OUTSIDE RECORDS SUMMARY | 2024-06-29 18:48 | XMS_ITS | Encounter Summary ---
Author Name [facility] [place] [facility] [place] Address [address] [place] [address] Care Team Providers Care City Collector Name Role Phone ABDIR[place]MAN [place] Primary Care [...] BASIC FAMIL Y Jun 24, 2009 [id number] [phone] ABHILASH GARAY PATIENT ANTHEM BCBS [place] FEP PREFERRED PROVIDER ORGANIZAT ION (PPO) FEP BASIC FAM Jun 24, 2009 112 [id number] [phone] ABHILASH GARAY PATIENT ANTHEM BCBS [place] FEP PREFERRED PROVIDER ORGANIZAT ION (PPO) FEP BASIC FAM Jun 24, 2009 112 [id number] [phone] ABHILASH GARAY PATIENT ANTHEM [place] F[place] PREFERRED PROVIDER ORGANIZAT ION (PPO) FEP BASIC FAM Jun 24, 2009 112 [id number] [phone] ABHILASH GARAY PATIENT [place]BS [place] FEP PREFERRED PROVIDER ORGANIZAT ION (PPO) FEP BASIC FAM Jun 24, 2009 112 [id number] [phone] ABHILASH GARAY PATIENT BCBS [place] FEP PREFERRED PROVIDER ORGANIZAT ION (PPO) BASIC FAMIL Y Jun 24, 2009 112 [id number] ABHILASH GARAY PATIENT [place] PREFERRED PROVIDER ORGANIZAT ION (PPO) BASIC FAMIL Y Jun 24, 2009 112 [id number] ABHILASH GARAY PATIENT [place] FEP PREFERRED PROVIDER ORGANIZAT ION (PPO) BASIC FAMIL Y Jun 24, 2009 112 [id number] ABHILASH GARAY PATIENT [place] FEP DENTAL DENTAL INSURANCE BASIC Jul 12, 2009 DENTAL [id number] [phone] ABHILASH GARAY PATIENT [place] FEP PREFERRED PROVIDER ORGANIZAT ION (PPO) BASIC FAMIL Y Jun 24, 2009 112 [id number] ABHILASH GARAY PATIENT [place] FEP ([id number]) PRESCRIPT ION FEPRX Jun 24, 2009 [id number] [phone] ABHILASH GARAY PATIENT [place] FEP BCBS PRESCRIPT ION CAREM [place] FEPRX PLAN Nov 21, 2021 [id number] ABHILASH GARAY PATIENT [place] FEPRX PLAN PRESCRIPT ION CAR[place] FEPRX Nov 21, 2021 [id number] ABHILASH GARAY PATIENT [place]-F EP BCBS PRESCRIPT ION FEP CAREM ARK Nov 21, 2021 [id number] ABHILASH GARAY PATIENT [place]-F EP BCBS PRESCRIPT ION FEP Jun 23, 2010 [id number] RUBI GARAYNETH PATIENT MEDICARE (WN) MEDICARE () PART A Feb 22, 2020 PART A [id number] [phone] ABHILASH GARAY PATIENT MEDICARE (WN) MEDICARE () PART A Feb 22, 2020 PART A [id number] ABHILASH GARAY PATIENT MEDICARE (WNR) MEDICARE (M) PART A Feb 22, 2020 PART A [id number] [phone] ABHILASH GARAY PATIENT MEDICARE (WNR) MEDICARE (M) PART A Feb 22, 2020 PART A [id number] ABHILASH GARAY PATIENT MEDICARE (WNR) MEDICARE (M) PART A Feb 22, 2020 PART A [id number] [phone] ABHILASH GARAY PATIENT Selected Encounter This section includes the information on record at [place] for the Encounter. Date/Time Encounter Type Encounter Description Reason Provider Source Aug 01, 2023 09:57 AM Outpatient Encounter TELEPHONE TRIAGE CELESTINE SHIN Encounter Template Text not used by [place] Plan of Treatment: Future Appointments (+ 6 months) and Future Tests (+/- 45 days) The Plan of Treatment section includes future care activities for the [facility] [place] [facility] This section includes future appointments and future orders which are active, pending or scheduled. Future Appointments This section includes appointments that were scheduled to occur 6 months from the date of the Encounter, up to a maximum of 20 appointments. The data comes from all [place] treatment facilities. Appointment Date/Time Appointment Type Appointme nt Facility Name Aug 04, 2023 11:00 AM AMBULATORY - MEDICINE [place] [facility] [place] [place] [facility] Aug 07, 2023 01:00 PM AMBULATORY - MEDICINE [place] [place] [facility] Aug 12, 2023 11:00 AM AMBULATORY - MEDICINE [place] [facility] Aug 14, 2023 01:00 PM AMBULATORY - MEDICINE [place] [place] [facility] Aug 18, 2023 11:00 AM AMBULATORY - MEDICINE [place] [place] [facility] Aug 21, 2023 01:00 PM AMBULATORY - MEDICINE [place] [place] [facility] Aug 22, 2023 08:00 AM AMBULATORY - MEDICINE [facility] Aug 25, 2023 11:00 AM AMBULATORY - MEDICINE [place] [place] [facility] Aug 28, 2023 01:00 PM AMBULATORY - MEDICINE [place] [facility] [place] [facility] Sep 01, 2023 11:00 AM AMBULATORY - MEDICINE [place] [facility] [place] [facility] Sep 04, 2023 01:00 PM [facility] [place] [facility] Sep 08, 2023 11:00 AM AMBULATORY - MEDICINE [place] [facility] [place] [place] [facility] Sep 11, 2023 01:00 PM AMBULATORY - MEDICINE [place] [facility] [place] [facility] Sep 16, 2023 11:00 AM AMBULATORY - MEDICINE [place] [facility] [place] [facility] Sep 29, 2023 11:00 AM AMBULATORY - MEDICINE [place] [facility] [place] [facility] Oct 02, 2023 01:00 PM AMBULATORY - MEDICINE [place] [facility] [place] [facility] Oct 06, 2023 11:00 AM AMBULATORY - MEDICINE [place] [facility] [place] [facility] Oct 06, 2023 12:40 PM AMBULATORY - MEDICINE [place] [facility] [place] [facility] Oct 09, 2023 01:00 PM AMBULATORY - MEDICINE [place] [facility] [place] [facility] Oct 13, 2023 11:00 AM AMBULATORY - MEDICINE [place] [facility] [place] [place] [facility] Vital Signs: All taken on the encounter date This section contains inpatient and outpatient Vital Signs collected on the date of the Encounter. Date/Time Temperature Pulse Blood Pressure Respiratory Rate SP02 Pain Height Weight Body Mass Index Source Aug 01, 2023 11:18 AM 96.7 93 155/66 18 95 0 250 32 [place] [facility] [place] [facility] Social History: Smoking Status (Most current) and Tobacco Use (All prior to encounter date) This section includes the most current, and the historical, smoking and tobacco- related health factors from the [place] facility where the Encounter took place. Current Smoking Status This section includes the most current smoking, or tobacco-related health factor, from the [place] facility where the Encounter took place. Date/Time Current Smoking Status Comment Facil ity Apr 08, 2023 09:12 AM [place]CO [facility] Tobacco Use History This section includes a history of the smoking, or tobacco-related health factors, that were collected on or before the date of the Encounter. The data comes from the [place] facility where the Encounter took place. Date/Time Smoking Status/Tobacco Use Comment F acility Aug 09, 2021 09:20 AM [place]-TOBACCO NEVER USED [place] [facility] [place] [facility] Encounter Notes: All associated encounter notes This section contains the clinical notes associated to the Encounter. Date/Time Encounter Note(s) Provider Source Aug 01, 2023 09:57 AM RN PROGRESS NOTE: LOCAL TITLE: CCC: CLINICAL TRIAGE STANDARD TITLE: RN PROGRESS NOTE DATE OF NOTE: AUG 01, 2023@09:57:45 ENTRY DATE: AUG 01, 2023@09:57:45 AUTHOR: CELESTINE SHIN COSIGNER: URGENCY: STATUS: COMPLETED CCC: CLINICAL TRIAGE Has ADDENDA Patient Demographics Patient Name: ABHILASH GARAY Patient Primary [address]: [address] [place] [address] Patient Primary Phone: [phone] Patient : 1955 Patient Age: 68 Call Back Number: [phone] Caller/Recipient Relation to Patient: Self Emergency Contact: ANNA TANISHA Triage Summary Conducted triage/discussed symptoms Pain Score: 1 Utilized the Triage Tool: Yes Chief Complaint: Toenail Problems System WHEN: Within 3 Days Nurse's Recommendation / WHEN: Within 3 Days System WHERE: Clinic Nurse's Recommendation / WHERE: [facility] Patient Disposition Patient/Caregiver agrees to plan of care: Yes Nursing Plan and Disposition Other course(s) of action Generated msg to PACT/Provider Nurse Summary Nurse Summary: purpose of call: RIGHT great toe nail lifting information: patient states he spoke with [facility] who told him assigned pcp does not have availability for 2-weeks patient wants to be seen today noticed last night toenail of RIGHT great toe is lifting end of toe about a quarter of the nail is lifting toe pain 1/10 taking allopurinol daily for gout doesn't remember if gout flare is to RIGHT great toe he is not having a gout flare he is concerned with toe nail lifting on RIGHT great toe i asked about trimming nails himself, maybe too long no, [facility] no injury to toe deferring to pcp team/msa to book with covering provider/pcp review and advise patient with plan of care as he wants to be seen today Clinical Contact Center Codes Clinic/Location: V1 CWM PHONE CCC RN TXCC Triage Complete Triage Note: Phone Triage 01 Aug 2023 14:50:19 +0000 [facility] Demographics 68 y/o Male Results CC: Toenail Problems Software suggested: Within 3 Days Software suggested follow-up location: Clinic, consider virtual care Values and Measures Duration of CC: 1 Days Positive Responses HPI: difficulty walking, due to toe pain HPI: toe pain, in only one toe VS: temperature not taken Negative Responses Denies: HPI: pain, radiation down back of leg Denies: HPI: red streaks, from a spot on the foot or toes Denies: HPI: skin erythema, foot or toe, worsening Denies: HPI: skin lump, swollen, painful, over the foot or toes Denies: HPI: skin swelling, foot or toes, worsening Denies: HPI: toe injury, within past 2 days Denies: HPI: toe pain, localized to toenail or periungual skin Denies: HPI: toe pain, moderate to severe Denies: HPI: toe pain, radiation down leg Denies: HPI: toe pain, severe Denies: MEDS: chemotherapy Denies: PMH: diabetes Denies: PMH: HIV positive Denies: PMH: sickle cell anemia Denies: PSH: foot surgery, within past week Denies: PSH: organ transplant /yunior/ CELESTINE SHIN [id number] Signed: 08/01/2023 09:57 Receipt Acknowledged By: 08/01/2023 10:43 /es/ GATO GUARDADO ADVANCE FOOD DEMONSTRATOR 08/01/2023 10:19 /yunior/ KASIA SMILEY LPN LICENSED PRACTICAL NURSE 08/01/2023 10:22 /yunior/ FERCHO MELLO RN REGISTERED NURSE 08/01/2023 ADDENDUM STATUS: COMPLETED See RN note offering same day here and at [place]. /oriana SMILEY LPN LICENSED PRACTICAL NURSE Signed: 08/01/2023 10:21 08/01/2023 ADDENDUM STATUS: COMPLETED Called and spoke to .Informed him of [facility] at [facility] and [facility]. [place] Will go to the [facility] for evaluation. /yunior/ FERCHO MELLO RN REGISTERED NURSE Signed: 08/01/2023 10:30 CELESTINE SHIN [facility]
--- OUTSIDE RECORDS SUMMARY | 2024-06-29 18:48 | XMS_ITS ---
Author Name [facility] [place] [facility] [place] Address [address] [place] [address] Care Team Providers Care Roof Bolter Name Role Phone ABDIRAHMAN [place] Primary Care [...] BASIC FAMIL Y Jun 24, 2009 [id number] [phone] ABHILASH GARAY PATIENT ANTHEM [place]BS [place] F[place] PREFERRED PROVIDER ORGANIZAT ION (PPO) FEP BASIC FAM Jun 24, 2009 112 [id number] [phone] ABIHLASH GARAY PATIENT ANTHEM [place]BS [place] F[place] PREFERRED PROVIDER ORGANIZAT ION (PPO) FEP BASIC FAM Jun 24, 2009 [id number] [phone] ABHILASH GARAY PATIENT ANTHEM [place] PREFERRED PROVIDER ORGANIZAT ION (PPO) FEP BASIC FAM Jun 24, 2009 112 [id number] [phone] ABHILASH GARAY PATIENT [place] FEP PREFERRED PROVIDER ORGANIZAT ION (PPO) FEP BASIC FAM Jun 24, 2009 112 [id number] [phone] ABHILASH GARAY PATIENT [place] FEP PREFERRED PROVIDER ORGANIZAT ION (PPO) BASIC FAMIL Y Jun 24, 2009 [id number] ABHILASH GARAY PATIENT [place] F[place] PREFERRED PROVIDER ORGANIZAT ION (PPO) BASIC FAMIL Y Jun 24, 2009 112 [id number] [phone] ABHILASH GARAY PATIENT [place] FEP PREFERRED PROVIDER ORGANIZAT ION (PPO) BASIC FAMIL Y Jun 24, 2009 112 [id number] [phone] ABHILASH GARAY PATIENT [place] FEP DENTAL DENTAL INSURANCE BASIC Jul 12, 2009 DENTAL [id number] [phone] ABHILASH GARAY PATIENT [place] FEP PREFERRED PROVIDER ORGANIZAT ION (PPO) BASIC FAMIL Y Jun 24, 2009 [id number] ABHILASH GARAY PATIENT [place] FEP ([id number]) PRESCRIPT ION FEPRX Jun 24, 2009 [id number] [phone] ABHILASH GARAY PATIENT [place] FEP BCBS PRESCRIPT ION CAREM ARK FEPRX PLAN Nov 21, 2021 [id number] ABHILASH GARAY PATIENT [place] FEPRX PLAN PRESCRIPT ION CAR[place] FEPRX Nov 21, 2021 [id number] ABHILASH GARAY PATIENT [place]-F EP BCBS PRESCRIPT ION FEP CAREM ARK Nov 21, 2021 [id number] ABHILASH GARAY PATIENT [place]-F EP BCBS PRESCRIPT ION FEP Jun 23, 2010 [id number] RUBI GARAYNETH PATIENT MEDICARE (WN) MEDICARE () PART A Feb 22, 2020 PART A [id number] [phone] ABHILASH GARAY PATIENT MEDICARE (WN) MEDICARE () PART A Feb 22, 2020 PART A [id number] ABHILASH GARAY PATIENT MEDICARE (WNR) MEDICARE (M) PART A Feb 22, 2020 PART A [id number] ABHILASH GARAY PATIENT MEDICARE (WNR) MEDICARE (M) PART A Feb 22, 2020 PART A [id number] ABHILASH GARAY PATIENT MEDICARE (WNR) MEDICARE (M) PART A Feb 22, 2020 PART A [id number] ABHILASH GARAY PATIENT Selected Encounter This section includes the information on record at [place] for the Encounter. Date/Time Encounter Type Encounter Description Reason Provider Source Aug 18, 2023 11:00 AM EXERCISE CLASS HEALTH/WELLBEING SRVS ICD-10-CM Y93.42 Activity, PAT Yoder IHFran Encounter Template Text not used by [place] Assessments - Encounter Diagnoses This section includes the primary and secondary diagnoses documented for the Encounter. Date/Time Primary/Secondary Diagnosis Diagnosis Name Provider Source Aug 19, 2023 02:56 PM PRIMARY Activity, PEDRO Yoder [facility] [place] [facility] Plan of Treatment: Future Appointments (+ 6 months) and Future Tests (+/- 45 days) The Plan of Treatment section includes future care activities for the patient from all [place] treatmentfacilities. This section includes future appointments and future orders which are active, pending or scheduled. Future Appointments This section includes appointments that were scheduled to occur 6 months from the date of the Encounter, up to a maximum of 20 appointments. The data comes from all [place] treatment facilities. Appointment Date/Time Appointment Type Appointme nt Facility Name Aug 21, 2023 01:00 PM AMBULATORY - MEDICINE [place] [facility] [place] [facility] Aug 22, 2023 08:00 AM [facility] Aug 25, 2023 11:00 AM AMBULATORY - MEDICINE [place] [place] [facility] Aug 28, 2023 01:00 PM AMBULATORY - MEDICINE [place] [facility] Sep 01, 2023 11:00 AM AMBULATORY - MEDICINE [place] [facility] [place] [place] [facility] Sep 04, 2023 01:00 PM AMBULATORY - MEDICINE [place] [facility] [place] [facility] Sep 08, 2023 11:00 AM AMBULATORY - MEDICINE [place] [facility] [place] [facility] Sep 11, 2023 01:00 PM AMBULATORY - MEDICINE [place] [facility] [place] [facility] Sep 16, 2023 11:00 AM AMBULATORY - MEDICINE [place] [facility] [place] [facility] Sep 29, 2023 11:00 AM AMBULATORY - MEDICINE [place] [facility] [place] [facility] Oct 02, 2023 01:00 PM AMBULATORY - MEDICINE [place] [facility] [place] [facility] Oct 06, 2023 11:00 AM AMBULATORY - MEDICINE [place] [facility] [place] [facility] Oct 06, 2023 12:40 PM AMBULATORY - MEDICINE [place] [facility] [place] [facility] Oct 09, 2023 01:00 PM AMBULATORY - MEDICINE [place] [facility] [place] [facility] Oct 13, 2023 11:00 AM AMBULATORY - MEDICINE [place] [facility] [place] [facility] Oct 16, 2023 01:00 PM AMBULATORY - MEDICINE [place] [facility] [place] [facility] Oct 20, 2023 11:00 AM AMBULATORY - MEDICINE [place] [facility] [place] [facility] October 23, 2023 01:00 PM AMBULATORY - MEDICINE [place] [facility] [place] [facility] October 27, 2023 11:00 AM AMBULATORY - MEDICINE [place] [facility] [place] [facility] November 03, 2023 11:00 AM AMBULATORY - MEDICINE [place] [facility] [place] [facility] Social History: Smoking Status (Most current) and Tobacco Use (All prior to encounter date) This section includes the most current, and the historical, smoking and tobacco- related health factors from the [place] facility where the Encounter took place. Current Smoking Status This section includes the most current smoking, or tobacco-related health factor, from the [place] facility where the Encounter took place. Date/Time Current Smoking Status Comment Facil ity Apr 08, 2023 09:12 AM [place]-TOBACCO NEVER USED [place] [facility] Tobacco Use History This section includes a history of the smoking, or tobacco-related health factors, that were collected on or before the date of the Encounter. The data comes from the [place] facility where the Encounter took place. Date/Time Smoking Status/Tobacco Use Comment F darvin Aug 09, 2021 09:20 AM [place]-TOBACCO NEVER USED [facility] Encounter Notes: All associated encounter notes This section contains the clinical notes associated to the Encounter. Date/Time Encounter Note(s) Provider Source Aug 18, 2023 12:30 PM RECREATIONAL THERA PY NOTE: LOCAL TITLE: YOGA WELLBEING STANDARD TITLE: RECREATIONAL THERAPY NOTE DATE OF NOTE: AUG 18, 2023@12:30 ENTRY DATE: AUG 19, 2023@14:53:23 AUTHOR: MARY KATE MOORE EXP COSIGNER: URGENCY: [...] triangle pose, wide leg forward bend variations, Nubieber 2, extended side angle pose, Nubieber 1, plank, cobra, locust, downward facing dog, wisdom pose, contralateral limb raises, head to knee pose, bridge, reclined twist, knees to chest; Systematic Relaxation; and Gratitude. Modifications were geared toward the [place]'s individual needs and preferences. [place] was one of nine participants in Group Yoga. He practiced all the postures offered, modifying according to his needs. He practiced excellent self-care and used his breath as a tool to enhance his practice. He will return to class as his schedule allows. /yunior/ MARY KATE MOORE, [id number] Automation Design Engineer Signed: 08/19/2023 15:04 MARY KATE MOORE [facility]
--- OUTSIDE RECORDS SUMMARY | 2024-06-29 18:48 | XMS_ITS | Encounter Summary ---
Author Name [facility] [place] Address [address] [place] [address] Care Team Providers Care Cook Railroad Name Role Phone ABDIRAHMAN LAKE Primary Care [...] BASIC FAMIL Y Jun 24, 2009 [id number] [phone] ABHILASH GARAY PATIENT ANTHEM BCBS [place] F[place] PREFERRED PROVIDER ORGANIZAT ION (PPO) FEP BASIC FAM Jun 24, 2009 112 [id number] [phone] ABHILASH GARAY PATIENT ANTHEM [place]BS [place] F[place] PREFERRED PROVIDER ORGANIZAT ION (PPO) FEP BASIC FAM Jun 24, 2009 112 [id number] [phone] ABHILASH GARAY PATIENT ANTHEM [place] PREFERRED PROVIDER ORGANIZAT ION (PPO) FEP BASIC FAM Jun 24, 2009 112 [id number] [phone] ABHILASH GARAY PATIENT [place] PREFERRED PROVIDER ORGANIZAT ION (PPO) FEP BASIC FAM Jun 24, 2009 [id number] [phone] ABHILASH GARAY PATIENT BCBS [place] F[place] PREFERRED PROVIDER ORGANIZAT ION (PPO) BASIC FAMIL Y Jun 24, 2009 [id number] ABHILASH GARAY PATIENT [place] PREFERRED PROVIDER ORGANIZAT ION (PPO) BASIC FAMIL Y Jun 24, 2009 [id number] [phone] ABHILASH GARAY PATIENT [place] FEP PREFERRED PROVIDER ORGANIZAT ION (PPO) BASIC FAMIL Y Jun 24, 2009 [id number] ABHILASH GARAY PATIENT [place] F[place] DENTAL DENTAL INSURANCE BASIC Jul 12, 2009 DENTAL [id number] ABHILASH GARAY PATIENT [place] PREFERRED PROVIDER ORGANIZAT ION (PPO) BASIC FAMIL Y Jun 24, 2009 [id number] ABHILASH GARAY PATIENT [employer] FEP ([id number]) PRESCRIPT ION FEPRX Jun 24, 2009 [id number] [phone] ABHILASH GARAY PATIENT [place] FEP BCBS PRESCRIPT ION CAREM ARK FEPRX PLAN Nov 21, 2021 [id number] ABHILASH GARAY PATIENT [place] FEPRX PLAN PRESCRIPT ION CAREM ARK FEPRX Nov 21, 2021 [id number] ABHILASH GARAY PATIENT [place]-F EP BCBS PRESCRIPT ION FEP CAREM ARK Nov 21, 2021 [id number] ABHILASH GARAY PATIENT [place]-F EP BCBS PRESCRIPT ION FEP Jun 23, 2010 [id number] RUBI GARAYNETH PATIENT MEDICARE (WN) MEDICARE () PART A Feb 22, 2020 PART A [id number] ABHILASH GARAY PATIENT MEDICARE (WN) MEDICARE () PART A Feb 22, 2020 PART A [id number] ABHILASH GARAY PATIENT MEDICARE (WNR) MEDICARE (M) PART A Feb 22, 2020 PART A [id number] [phone] ABHILASH GARAY PATIENT MEDICARE (WNR) MEDICARE (M) PART A Feb 22, 2020 PART A [id number] [phone] ABHILASH GARAY PATIENT MEDICARE (WNR) MEDICARE (M) PART A Feb 22, 2020 PART A [id number] ABHILASH GARAY PATIENT Selected Encounter This section includes the information on record at [place] for the Encounter. Date/Time Encounter Type Encounter Description Reason Provider Source Aug 14, 2023 01:00 PM EXERCISE CLASS HEALTH/WELLBEING SRVS ICD-10-CM Y93.42 Activity, PAT Yoder IHFran Encounter Template Text not used by [place] Assessments - Encounter Diagnoses This section includes the primary and secondary diagnoses documented for the Encounter. Date/Time Primary/Secondary Diagnosis Diagnosis Name Provider Source Aug 14, 2023 03:34 PM PRIMARY Activity, PEDRO Yoder [facility] [facility] Plan of Treatment: Future Appointments [...] Appointment Type Appointme nt Facility Name Aug 18, 2023 11:00 AM AMBULATORY - MEDICINE [place] [facility] [place] [facility] Aug 21, 2023 01:00 PM AMBULATORY - MEDICINE [place] [facility] [place] [facility] Aug 22, 2023 08:00 AM AMBULATORY [facility] MEDICINE [facility] Aug 25, 2023 11:00 AM AMBULATORY - MEDICINE [place] [facility] [place] [facility] Aug 28, 2023 01:00 PM AMBULATORY - MEDICINE [place] [facility] [place] [facility] Sep 01, 2023 11:00 AM AMBULATORY - MEDICINE [place] [facility] [place] [facility] Sep 04, 2023 01:00 PM AMBULATORY - MEDICINE [facility] [place] [facility] Sep 08, 2023 11:00 AM AMBULATORY - MEDICINE [facility] [place] [facility] Sep 11, 2023 01:00 PM AMBULATORY - MEDICINE [facility] [place] [facility] Sep 16, 2023 11:00 AM AMBULATORY - MEDICINE [facility] [place] [facility] Sep 29, 2023 11:00 AM AMBULATORY - MEDICINE [facility] [place] [facility] Oct 02, 2023 01:00 PM AMBULATORY - MEDICINE [facility] [place] [facility] Oct 06, 2023 11:00 AM AMBULATORY - MEDICINE [facility] [place] [facility] Oct 06, 2023 12:40 PM AMBULATORY - MEDICINE [facility] [place] [facility] Oct 09, 2023 01:00 PM AMBULATORY - MEDICINE [facility] [place] [facility] Oct 13, 2023 11:00 AM AMBULATORY - MEDICINE [place] [facility] [place] [facility] Oct 16, 2023 01:00 PM AMBULATORY - MEDICINE [place] [facility] [place] [facility] Oct 20, 2023 11:00 AM AMBULATORY - MEDICINE [place] [facility] [place] [facility] October 23, 2023 01:00 PM AMBULATORY - MEDICINE [place] [facility] [place] [facility] October 27, 2023 11:00 AM AMBULATORY - MEDICINE [place] [facility] [place] [facility] Social History: Smoking Status (Most [...] 2023 09:12 AM VA-TOBACCO NEVER USED [place] [facility] [place] [facility] Tobacco Use History This section includes a history of the smoking, or tobacco-related health factors, that were collected on or before the date of the Encounter. The data comes from the [place] facility where the Encounter took place. Date/Time Smoking Status/Tobacco Use Comment F acility Aug 09, 2021 09:20 AM [place]-TOBACCO NEVER USED [facility] Encounter Notes: All associated encounter notes This section contains the clinical notes associated to the Encounter. Date/Time Encounter Note(s) Provider Source Aug 14, 2023 02:30 PM RECREATIONAL THERA PY NOTE: LOCAL TITLE: YOGA WELLBEING STANDARD TITLE: RECREATIONAL THERAPY NOTE DATE OF NOTE: AUG 14, 2023@14:30 ENTRY DATE: AUG 14, 2023@15:33:34 AUTHOR: MARY KATE MOORE EXP COSIGNER: URGENCY: STATUS: COMPLETED Group Yoga Class Total time: 60 minutes Class Focus: Breath awareness, mindful movement, relaxation, and gratitude to balance the nervous system and enhance overall well-being. The Practice: Cellular breath to bring awareness to the body; postures that included, but were not limited to, moving warm-up, half sun salutation, sun salutation variations, tree, triangle pose, wide leg forward bend variations, [place] 2, extended side angle pose, [place] 1, plank, cobra, locust, downward facing dog, wisdom pose, contralateral limb raises, head to knee pose, bridge, reclined twist, knees to chest; Systematic Relaxation; and Gratitude. Modifications were geared toward the [place]'s individual needs and preferences. was one of seven participants in Group Yoga. He practiced all the postures offered, using yoga blocks and a yoga strap for support as needed. He was attentive to his breath throughout the session and practiced excellent self-care. [place] will return to class as his schedule allows. /yunior/ MARY KATE MOORE, [id number] Lean Specialist Signed: 08/14/2023 15:39 MARY KATE MOORE [facility]
--- OUTSIDE RECORDS SUMMARY | 2024-06-29 18:48 | XMS_ITS | Encounter Summary ---
Author Name [facility] [place] Address [address] [place] [address] Care Team Providers Care Career Portals Teacher Name Role Phone ABDIRAHMAN LA[place] Primary Care [...] BASIC FAMIL Y Jun 24, 2009 [id number] [phone] ABHILASH GARAY PATIENT ANTHEM BCBS [place] FEP PREFERRED PROVIDER ORGANIZAT ION (PPO) FEP BASIC FAM Jun 24, 2009 112 [id number] [phone] ABHILASH GARAY PATIENT ANTHEM [place]BS [place] F[place] PREFERRED PROVIDER ORGANIZAT ION (PPO) FEP BASIC FAM Jun 24, 2009 112 [id number] [phone] ABHILASH GARAY PATIENT [place] PREFERRED PROVIDER ORGANIZAT ION (PPO) FEP BASIC FAM Jun 24, 2009 112 [id number] [phone] ABHILASH GARAY PATIENT [place] PREFERRED PROVIDER ORGANIZAT ION (PPO) FEP BASIC FAM Jun 24, 2009 112 [id number] [phone] RUBI GARAYNETH PATIENT [place]BS [place] F[place] PREFERRED PROVIDER ORGANIZAT ION (PPO) BASIC FAMIL Y Jun 24, 2009 112 [id number] [phone] RUBI GARAYNETH PATIENT [place] FEP PREFERRED PROVIDER ORGANIZAT ION (PPO) BASIC FAMIL Y Jun 24, 2009 [id number] RUBI GARAYNETH PATIENT [place] FEP PREFERRED PROVIDER ORGANIZAT ION (PPO) BASIC FAMIL Y Jun 24, 2009 112 [id number] [phone] RUBI GARAYNETH PATIENT [place] F[place] DENTAL DENTAL INSURANCE BASIC Jul 12, 2009 DENTAL [id number] [phone] DEJAHDANIKARUBI ACEVESNETH PATIENT [place] FEP PREFERRED PROVIDER ORGANIZAT ION (PPO) BASIC FAMIL Y Jun 24, 2009 112 [id number] [phone] ABHILASH GARAY PATIENT [employer] FEP ([id number]) PRESCRIPT ION FEPRX Jun 24, 2009 [id number] [phone] ABHILASH GARAY PATIENT [place] FEP BCBS PRESCRIPT ION CAREM ARK FEPRX PLAN Nov 21, 2021 [id number] ABHILASH GARAY PATIENT [employer] FEPRX PLAN PRESCRIPT ION CAR[place] ARK FEPRX Nov 21, 2021 [id number] [phone] ABHILASH GARAY PATIENT [place]-F EP BCBS PRESCRIPT ION FEP CAREM ARK Nov 21, 2021 [id number] ABHILASH GARAY PATIENT [place]-F EP BCBS PRESCRIPT ION FEP Jun 23, 2010 [id number] RUBI GARAYNETH PATIENT MEDICARE ([facility]) MEDICARE () PART A Feb 22, 2020 PART A [id number] [phone] ABHILASH GARAY PATIENT MEDICARE (WNR) MEDICARE (M) PART A Feb 22, 2020 PART A [id number] ABHILASH GARAY PATIENT MEDICARE (WNR) MEDICARE (M) PART A Feb 22, 2020 PART A [id number] NV71 [phone] ABHILASH GARAY PATIENT MEDICARE (WNR) MEDICARE (M) PART A Feb 22, 2020 PART A [id number] NV71 [phone] ABHILASH GARAY PATIENT MEDICARE (WNR) MEDICARE (M) PART A Feb 22, 2020 PART A [id number] [id number] [phone] ABHILASH GARAY PATIENT Selected Encounter This section includes the information on record at [place] for the Encounter. Date/Time Encounter Type Encounter Description Reason Pro vider Source Aug 19, 2023 02:37 PM Outpatient Encounter ADMIN PAT ACTIVTIES (MASNONCT) IHE Encounter Template Text not used by [place] Plan of Treatment: Future Appointments (+ 6 months) and Future Tests (+/- 45 days) The Plan of Treatment section includes future care activities for the patient from all [place] treatmentfacilities. This section includes future appointments and future orders which are active, pending or scheduled. Future Appointments This section includes appointments that were scheduled to occur 6 months from the date of the Encounter, up to a maximum of 20 appointments. The data comes from all [place] treatment facilities. Appointment Date/Time Appointment Type Appointme nt Facility Name Aug 21, 2023 01:00 PM AMBULATORY - MEDICINE [place] [facility] Aug 22, 2023 08:00 AM [facility]ICINE [facility] Aug 25, 2023 11:00 AM AMBULATORY - MEDICINE [place] [facility] [place] [facility] Aug 28, 2023 01:00 PM AMBULATORY - MEDICINE [place] [facility] [place] [facility] Sep 01, 2023 11:00 AM AMBULATORY - MEDICINE [place] [facility] [place] [facility] Sep 04, 2023 01:00 PM AMBULATORY - MEDICINE [place] [facility] [place] [facility] Sep 08, 2023 11:00 AM AMBULATORY - MEDICINE [place] [facility] [place] [facility] Sep 11, 2023 01:00 PM AMBULATORY - MEDICINE [place] [facility] [place] [facility] Sep 16, 2023 11:00 AM AMBULATORY - MEDICINE [place] [facility] [place] [facility] Sep 29, 2023 11:00 AM AMBULATORY - MEDICINE [place] [facility] [place] [facility] Oct 02, 2023 01:00 PM AMBULATORY - MEDICINE [place] [facility] [place] [facility] Oct 06, 2023 11:00 AM AMBULATORY - MEDICINE [place] [facility] [place] [facility] Oct 06, 2023 12:40 PM AMBULATORY - MEDICINE [place] [facility] [place] [facility] Oct 09, 2023 01:00 PM AMBULATORY - MEDICINE [place] [facility] [place] [facility] Oct 13, 2023 11:00 AM AMBULATORY - MEDICINE [place] [facility] [place] [facility] Oct 16, 2023 01:00 PM AMBULATORY - MEDICINE [place] [facility] [place] [facility] Oct 20, 2023 11:00 AM AMBULATORY - MEDICINE [place] [facility] [place] [facility] October 23, 2023 01:00 PM AMBULATORY - MEDICINE [place] [facility] [place] [facility] October 27, 2023 11:00 AM AMBULATORY - MEDICINE [facility] [place] [facility] November 03, 2023 11:00 AM AMBULATORY - MEDICINE [place] [facility] [place] [facility] Social History: Smoking Status (Most current) and Tobacco Use (All prior to encounter date) This section includes the most current, and the historical, smoking and tobacco- related health factors from the [place] facility where the Encounter took place. Current Smoking Status This section includes the most current smoking, or tobacco-related health factor, from the [place] facility where the Encounter took place. Date/Time Current Smoking Status Comment Facil carmela Apr 08, 2023 09:12 AM [facility]ACCO [facility] Tobacco Use History This section includes a history of the smoking, or tobacco-related health factors, that were collected on or before the date of the Encounter. The data comes from the [place] facility where the Encounter took place. Date/Time Smoking Status/Tobacco Use Comment F darvin Aug 09, 2021 09:20 AM [facility]BACCO [facility] Encounter Notes: All associated encounter notes This section contains the clinical notes associated to the Encounter. Date/Time Encounter Note(s) Provider Source Aug 20, 2023 01:53 PM ADDENDUM: LOCAL TITLE: Addendum STANDARD TITLE: ADDENDUM DATE OF NOTE: AUG 20, 2023@13:53:13 ENTRY DATE: AUG 20, 2023@13:53:15 AUTHOR: FERCHO MELLO COSIGNER: URGENCY: STATUS: COMPLETED has been informed by the pharmacy PCP has prescription in hand. And should be ordering soon. Harness And Bag Inspector sent the below TEAMS as an FYI: [1:35 PM] Aparna August The patient will be in [place] tomorrow for Yoga. He is asking to flower picker the medication there tomorrow if that is possible. Once Dr. Jamison puts the order in for window I can contact [place] to fill it /es/ FERCHO MELLO RN REGISTERED NURSE Signed: 08/20/2023 13:54 Receipt Acknowledged By: 08/21/2023 16:00 /es/ Pili Marshall M.D. STAFF PHYSICIAN === --- Original Document --- 08/19/23 CCC: SCHEDULING ADMINISTRATION: Patient Demographics Patient Name: ABHILASH GARAY Patient Primary Phone: [phone] Patient Primary Address: [address] [place] [address] Patient : 1955 Patient Age: 68 Call Back Number: [phone] Caller/Recipient Relation to Patient: Self Administrative Administrative Note Reason: Other Administrative Note Comments: PT IS REQUESTING A CALL BACK WITH THE STATUS OF THE FOLLOWING MEDICATION: Rx #[id number] - LEVOTHYROXINE NA (SYNTHROID) 150MCG TAB PT STATED THE DOSAGE SHOULD BE 155MG NOW. PT CAN BE REACHED AT ABOVE # /es/ KAYLIE [email or web address] [facility] AMSA Signed: 08/19/2023 14:38 Receipt Acknowledged By: * AWAITING SIGNATURE * KASIA SMILEY 08/21/2023 12:01 /es/ FERCHO MELLO RN REGISTERED NURSE [facility]OL [facility] Aug 19, 2023 02:38 PM ADMINISTRATIVE NOTE: LOCAL TITLE: CCC: SCHEDULING ADMINISTRATION STANDARD TITLE: ADMINISTRATIVE NOTE DATE OF NOTE: AUG 19, 2023@14:38:06 ENTRY DATE: AUG 19, 2023@14:38:06 AUTHOR: KAYLIE HERNANDEZ COSIGNER: URGENCY: STATUS: COMPLETED CCC: SCHEDULING ADMINISTRATION Has ADDENDA Patient Demographics Patient Name: ABHILASH GARAY Patient Primary Phone: [phone] Patient Primary Address: [address] [place] [address] Patient : 1955 Patient Age: 68 Call Back Number: [phone] Caller/Recipient Relation to Patient: Self Administrative Administrative Note Reason: Other Administrative Note Comments: PT IS REQUESTING A CALL BACK WITH THE STATUS OF THE FOLLOWING MEDICATION: Rx #[id number] - LEVOTHYROXINE NA (SYNTHROID) 150MCG TAB PT STATED THE DOSAGE SHOULD BE 155MG NOW. PT CAN BE REACHED AT ABOVE # /es/ KAYLIE HERNANDEZ VISN1 [facility] AMSA Signed: 08/19/2023 14:38 Receipt Acknowledged By: 08/25/2023 09:41 /es/ KASIA SMILEY LPN LICENSED PRACTICAL NURSE 08/21/2023 12:01 /es/ FERCHO MELLO RN REGISTERED NURSE 08/20/2023 ADDENDUM STATUS: COMPLETED [place] has been informed by the pharmacy PCP has prescription in hand. And should be ordering soon. Harness And Bag Inspector sent the below TEAMS as an FYI: [1:35 PM] Aparna August The patient will be in [place] tomorrow for Yoga. He is asking to flower picker the medication there tomorrow if that is possible. Once Dr. Jamison puts the order in for window I can contact [place] to fill it /yunior/ FERCHO MELLO RN REGISTERED NURSE Signed: 08/20/2023 13:54 Receipt Acknowledged By: 08/21/2023 16:00 /yunior/ Pili Marshall M.D. STAFF PHYSICIAN [facility]LIE HERNANDZE [facility] [place] [facility]
--- OUTSIDE RECORDS SUMMARY | 2024-06-29 18:48 | XMS_ITS | Encounter Summary ---
Author Name [facility] [place] Address [address] [place] [address] Care Team Providers Care Vegetable Washing Machine Operator Name Role Phone ABDIRAHMAN [place] Primary Care [...] BASIC FAMIL Y Jun 24, 2009 [id number] [phone] ABHILASH GARAY PATIENT ANTHEM BCBS [place] FEP PREFERRED PROVIDER ORGANIZAT ION (PPO) FEP BASIC FAM Jun 24, 2009 112 [id number] [phone] ABHILASH GARAY PATIENT ANTHEM [place]BS [place] F[place] PREFERRED PROVIDER ORGANIZAT ION (PPO) FEP BASIC FAM Jun 24, 2009 [id number] [phone] ABHILASH GARAY PATIENT [place]THE[place] PREFERRED PROVIDER ORGANIZAT ION (PPO) FEP BASIC FAM Jun 24, 2009 112 [id number] [phone] ABHILASH GARAY PATIENT [place] PREFERRED PROVIDER ORGANIZAT ION (PPO) FEP BASIC FAM Jun 24, 2009 112 [id number] [phone] ABHILASH GARAY PATIENT [place] PREFERRED PROVIDER ORGANIZAT ION (PPO) BASIC FAMIL Y Jun 24, 2009 [id number] ABHILASH GARAY PATIENT [place] FEP PREFERRED PROVIDER ORGANIZAT ION (PPO) BASIC FAMIL Y Jun 24, 2009 [id number] ABHILASH GARAY PATIENT [place] FEP PREFERRED PROVIDER ORGANIZAT ION (PPO) BASIC FAMIL Y Jun 24, 2009 [id number] ABHILASH GARAY PATIENT [place] F[place] DENTAL DENTAL INSURANCE BASIC Jul 12, 2009 DENTAL [id number] ABHILASH GARAY PATIENT [place] F[place] PREFERRED PROVIDER ORGANIZAT ION (PPO) BASIC FAMIL Y Jun 24, 2009 [id number] ABHILASH GARAY PATIENT [employer] FEP ([id number]) PRESCRIPT ION FEPRX Jun 24, 2009 [id number] [phone] ABHILASH GARAY PATIENT [place] FEP BCBS PRESCRIPT ION CAR[place] ARK FEPRX PLAN Nov 21, 2021 [id number] ABHILASH GARAY PATIENT [employer] FEPRX PLAN PRESCRIPT ION CAREM [place]K FEPRX Nov 21, 2021 [id number] ABHILASH GARAY PATIENT [place]-F EP BCBS PRESCRIPT ION FEP CAREM ARK Nov 21, 2021 [id number] ABHILASH GARAY PATIENT [place]-F EP BCBS PRESCRIPT ION FEP Jun 23, 2010 [id number] ABHLIASH GARAY PATIENT MEDICARE (WN) MEDICARE () PART A Feb 22, 2020 PART A [id number] ABHILASH GARAY PATIENT MEDICARE ([facility]) MEDICARE () PART A Feb 22, 2020 PART A [id number] ABHILASH GARAY PATIENT MEDICARE (WNR) MEDICARE (M) PART A Feb 22, 2020 PART A [id number] ABHILASH GARAY PATIENT MEDICARE (WNR) MEDICARE (M) PART A Feb 22, 2020 PART A [id number] ABHILASH GARAY PATIENT MEDICARE (WNR) MEDICARE (M) PART A Feb 22, 2020 PART A [id number] ABHILASH GARAY PATIENT Selected Encounter This section includes the information on record at [place] for the Encounter. Date/Time Encounter Type Encounter Description Reason Pro vider Source Jul 25, 2023 12:00 AM Outpatient Encounter COMMUNITY CARE CONSULT IHE Encounter Template Text not used by [place] Plan of Treatment: Future Appointments (+ 6 months) and Future Tests (+/- 45 days) The Plan of Treatment section includes future care activities for the patient from all [place] treatmentfacilities. This section includes future appointments and future orders which are active, pending or scheduled. Future Appointments This section includes appointments that were scheduled to occur 6 months from the date of the Encounter, up to a maximum of 20 appointments. The data comes from all [place] treatment facilities. Appointment Date/Time Appointment Type Appointme nt Facility Name Jul 28, 2023 11:00 AM AM[place]ULATORY [place] [facility] [place] [facility] Jul 31, 2023 01:00 PM AM[place]ULATORY [place] [facility] [place] [facility] Aug 01, 2023 11:00 AM AM[place]ULATORY [place]ICINE [place] [facility] [place] [facility] Aug 04, 2023 11:00 AM AM[place]ULATORY [place] [facility] [place] [facility] Aug 07, 2023 01:00 PM AM[place]ULATORY [place]ICINE [place] [facility] [place] [facility] Aug 12, 2023 11:00 AM AM[place]ULATORY [place]ICINE [place] [facility] [facility] Aug 14, 2023 01:00 PM AM[place]ULATORY [place]ICINE [place] [facility] [place] [facility] Aug 18, 2023 11:00 AM AMBULATORY [place] MEDICINE [place] [facility] [facility] Aug 21, 2023 01:00 PM AM[facility]ULATORY - MEDICINE [place] [facility] [place] [facility] Aug 22, 2023 08:00 AM AM[place]ULATORY - MEDICINE [place] Aug 25, 2023 11:00 AM AMBULATORY - MEDICINE [facility] [place] [facility] Aug 28, 2023 01:00 PM AMBULATORY - MEDICINE [facility] [place] [facility] Sep 01, 2023 11:00 AM AMBULATORY - MEDICINE [facility] [place] [facility] Sep 04, 2023 01:00 PM AMBULATORY - MEDICINE [facility] [place] [facility] Sep 08, 2023 11:00 AM AMBULATORY - MEDICINE [facility] [place] [facility] Sep 11, 2023 01:00 PM AMBULATORY - MEDICINE [facility] [place] [facility] Sep 16, 2023 11:00 AM AMBULATORY - MEDICINE [facility] [place] [facility] Sep 29, 2023 11:00 AM AMBULATORY - MEDICINE [facility] [place] [facility] Oct 02, 2023 01:00 PM AMBULATORY - MEDICINE [facility] [place] [facility] Oct 06, 2023 11:00 AM AMBULATORY - MEDICINE [facility] [place] [facility] Social History: Smoking Status (Most current) and Tobacco Use (All prior to encounter date) This section includes the most current, and the historical, smoking and tobacco- related health factors from the [place] facility where the Encounter took place. Current Smoking Status This section includes the most current smoking, or tobacco-related health factor, from the [place] facility where the Encounter took place. Date/Time Current Smoking Status Comment Facil dimitriy Apr 08, 2023 09:12 AM VA-TOBACCO NEVER USED [place] [facility] Tobacco Use History This section includes a history of the smoking, or tobacco-related health factors, that were collected on or before the date of the Encounter. The data comes from the [place] facility where the Encounter took place. Date/Time Smoking Status/Tobacco Use Comment F acjaved Aug 09, 2021 09:20 AM [facility] Encounter Notes: All associated encounter notes This section contains the clinical notes associated to the Encounter. Date/Time Encounter Note(s) Provider Source Jul 25, 2023 12:00 AM NONVA CONSULT: LOCAL TITLE: COMMUNITY CARE-CONSULT RESULT NOTE STANDARD TITLE: NONVA CONSULT DATE OF NOTE: JUL 25, 2023 ENTRY DATE: AUG 08, 2023@08:04:24 AUTHOR: DAHIANA MCMILLAN EXP COSIGNER: URGENCY: STATUS: COMPLETED VistA Imaging - Scanned Document SCANNED DOCUMENT SIGNATURE NOT REQUIRED Electronically Filed: 08/08/2023 by: DAHIANA JANG [facility]
--- OUTSIDE RECORDS SUMMARY | 2024-06-29 18:48 | XMS_ITS ---
Author Name [place] Address [address] [place] [address] Care Team Providers Care Temperature Inspector Name Role Phone ABDIRAHMAN [place] Primary Care [...] BASIC FAMIL Y Jun 24, 2009 [id number] [phone] ABHILASH GARAY PATIENT ANTHEM [place]BS [place] F[place] PREFERRED PROVIDER ORGANIZAT ION (PPO) FEP BASIC FAM Jun 24, 2009 112 [id number] [phone] ABHILASH GARAY PATIENT ANTHEM BCBS [place] F[place] PREFERRED PROVIDER ORGANIZAT ION (PPO) FEP BASIC FAM Jun 24, 2009 112 [id number] [phone] ABHILASH GARAY PATIENT [place] PREFERRED PROVIDER ORGANIZAT ION (PPO) FEP BASIC FAM Jun 24, 2009 112 [id number] [phone] ABHILASH GARAY PATIENT [place] PREFERRED PROVIDER ORGANIZAT ION (PPO) FEP BASIC FAM Jun 24, 2009 112 [id number] [phone] RUBI GARAYNETH PATIENT BCBS [place] F[place] PREFERRED PROVIDER ORGANIZAT ION (PPO) BASIC FAMIL Y Jun 24, 2009 112 [id number] [phone] RUBI GARAYNETH PATIENT [place] PREFERRED PROVIDER ORGANIZAT ION (PPO) BASIC FAMIL Y Jun 24, 2009 112 [id number] 62 ABHILASH GARAY PATIENT [place] PREFERRED PROVIDER ORGANIZAT ION (PPO) BASIC FAMIL Y Jun 24, 2009 112 [id number] 62 RUBI GARAYNETH PATIENT [place] F[place] DENTAL DENTAL INSURANCE BASIC Jul 12, 2009 DENTAL [id number] [phone] DEJAHDANIKARUBI ACEVESNETH PATIENT [place] FEP PREFERRED PROVIDER ORGANIZAT ION (PPO) BASIC FAMIL Y Jun 24, 2009 [id number] 62 ABHILASH GARAY PATIENT [employer] FEP ([id number]) PRESCRIPT ION FEPRX Jun 24, 2009 [id number] [phone] RUBI GARAYNETH PATIENT [place] FEP BCBS PRESCRIPT ION CAREM ARK FEPRX PLAN Nov 21, 2021 [id number] ABHILASH GARAY PATIENT [employer] FEPRX PLAN PRESCRIPT ION CAREM ARK FEPRX Nov 21, 2021 [id number] ABHILASH GARAY PATIENT [place]-F EP BCBS PRESCRIPT ION FEP CAREM ARK Nov 21, 2021 [id number] DEJAHDANIKAABHILASH ACEVES PATIENT [place]-F EP BCBS PRESCRIPT ION FEP Jun 23, 2010 [id number] DEJAHDANIKARUBI ACEVESNETH PATIENT MEDICARE ([facility]) MEDICARE () PART A Feb 22, 2020 PART A [id number] RUBI GARAYNETH PATIENT MEDICARE (WNR) MEDICARE (M) PART A Feb 22, 2020 PART A [id number] [phone] ABHILASH GARAY PATIENT MEDICARE (WNR) MEDICARE (M) PART A Feb 22, 2020 PART A [id number] ABHILASH GARAY PATIENT MEDICARE (WNR) MEDICARE (M) PART A Feb 22, 2020 PART A [id number] ABHILASH GARAY PATIENT MEDICARE (WNR) MEDICARE (M) PART A Feb 22, 2020 PART A [id number] [phone] ABHILASH GARAY PATIENT Selected Encounter This section includes the information on record at [place] for the Encounter. Date/Time Encounter Type Encounter Description Reason Provider Source Aug 01, 2023 11:00 AM OFF/OP EST OCTOBER X REQ PHY/QHP PRIMARY CARE/MEDICINE ICD-10-CM Z71.89 Other specified counseling AZUCENA MYRICK [facility] Encounter Template Text not used by [place] Assessments - Encounter Diagnoses This section includes the primary and secondary diagnoses documented for the Encounter. Date/Time Primary/Secondary Diagnosis Diagnosis Name Provider Source Aug 15, 2023 06:55 AM PRIMARY Other specified counseling AZUCENA MYRICK [place] [facility] [facility] Plan of Treatment: Future Appointments (+ 6 months) and Future Tests (+/- 45 days) The Plan of Treatment section includes future care activities for the patient from all [place] treatmentfacilities. This section includes future appointments and future orders which are active, pending or scheduled. Future Appointments This section includes appointments that were scheduled to occur 6 months from the date of the Encounter, up to a maximum of 20 appointments. The data comes from all [place] treatment facilities. Appointment Date/Time Appointment Type Appointme nt Facility Name Aug 04, 2023 11:00 AM AM[place]ULATORY [place]IC[place] [facility] Aug 07, 2023 01:00 PM AM[place]ULATORY [place] [facility] Aug 12, 2023 11:00 AM AM[place]ATORY [place] [facility] Aug 14, 2023 01:00 PM AMBULATORY [place]INE [place] [facility] Aug 18, 2023 11:00 AM AMBULATORY [place]ICINE [place] [facility] [place] [facility] Aug 21, 2023 01:00 PM AMBULATORY [place]ICINE [place] [facility] [place] [facility] Aug 22, 2023 08:00 AM [facility] Aug 25, 2023 11:00 AM AM[place]ULATORY [place] [facility] Aug 28, 2023 01:00 PM AMBULATORY [place]ICINE [place] [facility] [place] [facility] Sep 01, 2023 11:00 AM AMBULATORY [place]ICINE [place] [facility] [place] [facility] Sep 04, 2023 01:00 PM AMBULATORY - [place]ICINE [place] [facility] [place] [facility] Sep 08, 2023 11:00 AM AMBULATORY [place]ICINE [place] [facility] [place] [facility] Sep 11, 2023 01:00 PM AMBULATORY - MEDICINE [place] [facility] [place] [facility] Sep 16, 2023 11:00 AM AMBULATORY - [place]ICINE [place] [facility] [place] [facility] Sep 29, 2023 11:00 AM AMBULATORY - [place]ICINE [place] [facility] [place] [facility] Oct 02, 2023 01:00 PM AMBULATORY - MEDICINE [place] [facility] [place] [facility] Oct 06, 2023 11:00 AM AMBULATORY - MEDICINE [place] [facility] [place] [facility] Oct 06, 2023 12:40 PM AMBULATORY - MEDICINE [place] [facility] [place] [facility] Oct 09, 2023 01:00 PM AMBULATORY - MEDICINE [place] [facility] [place] [facility] Oct 13, 2023 11:00 AM AMBULATORY - MEDICINE [place] [facility] [place] [facility] Vital Signs: All taken on the encounter date This section contains inpatient and outpatient Vital Signs collected on the date of the Encounter. Date/Time Temperature Pulse Blood Pressure Respiratory Rate SP02 Pain Height Weight Body Mass Index Source Aug 01, 2023 11:18 AM 96.7 93 155/66 18 95 0 250 32 [place] [facility] Social History: Smoking Status (Most current) and Tobacco Use (All prior to encounter date) This section includes the most current, and the historical, smoking and tobacco- related health factors from the [place] facility where the Encounter took place. Current Smoking Status This section includes the most current smoking, or tobacco-related health factor, from the [place] facility where the Encounter took place. Date/Time Current Smoking Status Comment Odalis casey Apr 08, 2023 09:12 AM VA-TOBACCO NEVER USED [facility] Tobacco Use History This section includes a history of the smoking, or tobacco-related health factors, that were collected on or before the date of the Encounter. The data comes from the [place] facility where the Encounter took place. Date/Time Smoking Status/Tobacco Use Comment F acjaved Aug 09, 2021 09:20 AM VA-TOBACCO NEVER USED [facility] Encounter Notes: All associated encounter notes This section contains the clinical notes associated to the Encounter. Date/Time Encounter Note(s) Provider Source Aug 01, 2023 02:07 PM PRIMARY CARE OUTPA TIENT NOTE: LOCAL TITLE: AMBULATORY/OUTPATIENT CARE NOTE STANDARD TITLE: PRIMARY CARE OUTPATIENT NOTE DATE OF NOTE: AUG 01, 2023@14:07 ENTRY DATE: AUG 01, 2023@14:07:14 AUTHOR: RITA MYRICK COSIGNER: URGENCY: STATUS: COMPLETED F: Walk in D&A: Pt presents to sick call today with concerns of his right great toe nail. Pt states he sees a Environmental Health Technician every 6 weeks, Pt is not a diabetic. Right great toe nail is long, not thick or discolored. Bandage applied to toe nail to alleviate the pressue of the nail hitting the top of his shoe and catching on his sock,Pt states feels more comfortable . Pt has a Podiatry appointment appointment on 08/22/23, he was given a supply of bandages to take with him as well. Not necessary to see sick call provider. Toe nail did not look infected, no redness, just the discomfort of the length of nail hitting top of shoe and catching on sock. Blood Pressure: 155/66 (08/01/2023 11:18) Pain: 0 (08/01/2023 11:18) Patient Height: 74 in [188.0 cm] (12/29/2018 08:33) Patient Weight: 250 lb [113.40 kg] (08/01/2023 11:18) Pulse: 93 (08/01/2023 11:18) Respiration: 18 (08/01/2023 11:18) Temperature: 96.7 F [35.9 C] (08/01/2023 11:18) /yunior/ RITA MYRICK Registered Nurse Signed: 08/01/2023 14:13 RITA MYRICK [place] [facility] [facility]
--- OUTSIDE RECORDS SUMMARY | 2024-06-29 18:48 | XMS_ITS | Encounter Summary ---
Author Name [facility] [place] Address [address] [place] [address] Care Team Providers Care Dental Office Coordinator Name Role Phone ABDIRAHMAN [place] Primary [...] BASIC FAMIL Y Jun 24, 2009 [id number] [phone] ABHILASH GARAY PATIENT ANTHEM BCBS [place] FEP PREFERRED PROVIDER ORGANIZAT ION (PPO) FEP BASIC FAM Jun 24, 2009 112 [id number] [phone] ABHILASH GARAY PATIENT ANTHEM [place]BS [place] F[place] PREFERRED PROVIDER ORGANIZAT ION (PPO) FEP BASIC FAM Jun 24, 2009 112 [id number] [phone] ABIHLASH GARAY PATIENT [place] PREFERRED PROVIDER ORGANIZAT ION (PPO) FEP BASIC FAM Jun 24, 2009 112 [id number] [phone] ABHILASH GARAY PATIENT [place] PREFERRED PROVIDER ORGANIZAT ION (PPO) FEP BASIC FAM Jun 24, 2009 112 [id number] [phone] RUBI GARAYNETH PATIENT [place]BS [place] F[place] PREFERRED PROVIDER ORGANIZAT ION (PPO) BASIC FAMIL Y Jun 24, 2009 [id number] 62 RUBI GARAYNETH PATIENT [place] PREFERRED PROVIDER ORGANIZAT ION (PPO) BASIC FAMIL Y Jun 24, 2009 [id number] RUBI GARAYNETH PATIENT [place] F[place] PREFERRED PROVIDER ORGANIZAT ION (PPO) BASIC FAMIL Y Jun 24, 2009 [id number] 62 RUBI GRAAYNETH PATIENT [place] F[place] DENTAL DENTAL INSURANCE BASIC Jul 12, 2009 DENTAL [id number] [phone] DEJAHDANIKARUBI ACEVESNETH PATIENT [place] PREFERRED PROVIDER ORGANIZAT ION (PPO) BASIC FAMIL Y Jun 24, 2009 [id number] 62 ABHILASH GARAY PATIENT [employer] FEP ([id number]) PRESCRIPT ION FEPRX Jun 24, 2009 [id number] [phone] ABHILASH GARAY PATIENT [employer] FEP BCBS PRESCRIPT ION CAREM ARK FEPRX PLAN Nov 21, 2021 [id number] ABHILASH GARAY PATIENT [employer] FEPRX PLAN PRESCRIPT ION CAREM ARK FEPRX Nov 21, 2021 [id number] ABHILASH GARAY PATIENT [employer]-F EP BCBS PRESCRIPT ION FEP CAREM ARK Nov 21, 2021 [id number] ABHILASH GARAY PATIENT [employer]-F EP BCBS PRESCRIPT ION FEP Jun 23, 2010 [id number] RUBI GARAYNETH PATIENT MEDICARE ([facility]) MEDICARE () PART A Feb 22, 2020 PART A [id number] ABHILASH GARAY PATIENT MEDICARE (WNR) MEDICARE (M) PART A Feb 22, 2020 PART A [id number] ABHILASH GARAY PATIENT MEDICARE (WNR) MEDICARE (M) PART A Feb 22, 2020 PART A [id number] ABHILASH GARAY PATIENT MEDICARE (WNR) MEDICARE (M) PART A Feb 22, 2020 PART A [id number] ABHILASH GARAY PATIENT MEDICARE (WNR) MEDICARE (M) PART A Feb 22, 2020 PART A [id number] ABHILASH GARAY PATIENT Selected Encounter This section includes the [place] for the Encounter. Date/Time Encounter Type Encounter Description Reason Pro vider Source Aug 18, 2023 01:30 PM Outpatient Encounter ADMIN PAT ACTIVTIES (MASNONCT) [...] 21, 2023 01:00 PM [place] [facility] Aug 22, 2023 08:00 AM AMBULATORY - MEDICINE [facility] Aug 25, 2023 11:00 AM [place] [facility] Aug 28, 2023 01:00 PM [place] [facility] Sep 01, 2023 11:00 AM [place] [facility] Sep 04, 2023 01:00 PM [place]ORY [place] [facility] Sep 08, 2023 11:00 AM [place] [facility] Sep 11, 2023 01:00 PM [place] [facility] Sep 16, 2023 11:00 AM AMBULATORY - MEDICINE [place] [facility] [place] [facility] Sep 29, 2023 11:00 AM AMBULATORY - MEDICINE [place] [facility] [place] [facility] Oct 02, 2023 01:00 PM AMBULATORY - MEDICINE [place] [facility] [place] [facility] Oct 06, 2023 11:00 AM AMBULATORY - MEDICINE [place] [facility] [place] [facility] Oct 06, 2023 12:40 PM AMBULATORY - MEDICINE [place] [facility] [place] [place] [facility] Oct 09, 2023 01:00 PM AMBULATORY - MEDICINE [place] [facility] [place] [place] [facility] Oct 13, 2023 11:00 AM AMBULATORY - MEDICINE [place] [facility] [place] [place] [facility] Oct 16, 2023 01:00 PM AMBULATORY - MEDICINE [place] [facility] [place] [place] [facility] Oct 20, 2023 11:00 AM AMBULATORY - [place]ICINE [place] [facility] [place] [facility] October 23, 2023 01:00 PM AMBULATORY - MEDICINE [place] [facility] [place] [facility] October 27, 2023 11:00 AM AMBULATORY [place] MEDICINE [place] [facility] [place] [facility] November 03, 2023 11:00 AM [place] [facility] Social History: Smoking Status (Most [...] 08, 2023 09:12 AM VA-TOBACCO [facility] Tobacco Use History This section includes a history of the smoking, or tobacco-related health factors, that were collected on or before the date of the Encounter. The data comes from the [place] facility where the Encounter took place. Date/Time Smoking Status/Tobacco Use Comment F darvin Aug 09, 2021 09:20 AM VA-TOBACCO NEVER [facility] Encounter Notes: All associated encounter notes This section contains the clinical notes associated to the Encounter. Date/Time Encounter Note(s) Provider Source Aug 18, 2023 01:30 PM ADMINISTRATIVE NOT E: LOCAL TITLE: CCC: SCHEDULING ADMINISTRATION STANDARD TITLE: ADMINISTRATIVE NOTE DATE OF NOTE: AUG 18, 2023@13:30 ENTRY DATE: AUG 18, 2023@13:33:49 AUTHOR: VANESSA LOTT COSIGNER: URGENCY: STATUS: COMPLETED CCC: SCHEDULING ADMINISTRATION Has ADDENDA VET CALLED T CHECK ON STATUS OF FAX SENT FROM HIS ENDOCRINE. PLS BE ALERT OF FAX COMING. HE WILL CALL AGAIN TO RESEND. FYI TO TEAM.. /yunior/ VANESSA CHÁVEZ 1 [facility] AMSA Signed: 08/18/2023 13:35 Receipt Acknowledged By: 08/18/2023 14:02 /yunior/ FERCHO MELLO RN REGISTERED NURSE 08/19/2023 10:29 /yunior/ KASIA SMILEY LPN LICENSED PRACTICAL NURSE 08/18/2023 ADDENDUM STATUS: COMPLETED Faxed was received by pharmacy and placed in PCP's mailbox for review. /yunior/ FERCHO MELLO RN REGISTERED NURSE Signed: 08/18/2023 14:02 VANESSA LOTT CNTRL [facility]
--- OUTSIDE RECORDS SUMMARY | 2024-06-29 18:49 | XMS_ITS | Encounter Summary ---
Author Name [place] Address [address] [place] [address] Care Team Providers Care Identifier Horse Name Role Phone ABDIRAHMAN [place] Primary Care [...] BASIC FAMIL Y Jun 24, 2009 [id number] [phone] ABHILASH GARAY PATIENT ANTHEM BCBS [place] F[place] PREFERRED PROVIDER ORGANIZAT ION (PPO) FEP BASIC FAM Jun 24, 2009 112 [id number] [phone] ABHILASH GARAY PATIENT ANTHEM [place] PREFERRED PROVIDER ORGANIZAT ION (PPO) FEP BASIC FAM Jun 24, 2009 112 [id number] [phone] ABHILASH GARAY PATIENT [place] PREFERRED PROVIDER ORGANIZAT ION (PPO) FEP BASIC FAM Jun 24, 2009 112 [id number] [phone] ABHILASH GARAY PATIENT [place] PREFERRED PROVIDER ORGANIZAT ION (PPO) FEP BASIC FAM Jun 24, 2009 112 [id number] [phone] ABHILASH GARAY PATIENT [place] PREFERRED PROVIDER ORGANIZAT ION (PPO) BASIC FAMIL Y Jun 24, 2009 [id number] ABHILASH GARAY PATIENT [place] PREFERRED PROVIDER ORGANIZAT ION (PPO) BASIC FAMIL Y Jun 24, 2009 [id number] ABHILASH GARAY PATIENT [place] PREFERRED PROVIDER ORGANIZAT ION (PPO) BASIC FAMIL Y Jun 24, 2009 [id number] ABHILASH GARAY PATIENT [place] DENTAL DENTAL INSURANCE BASIC Jul 12, 2009 DENTAL [id number] 62 ABHILASH GARAY PATIENT [place] PREFERRED PROVIDER ORGANIZAT ION (PPO) BASIC FAMIL Y Jun 24, 2009 [id number] ABHILASH GARAY PATIENT [employer] FEP ([id number]) PRESCRIPT ION FEPRX Jun 24, 2009 [id number] [phone] ABHILASH GARAY PATIENT [place] FEP BCBS PRESCRIPT ION CAREM ARK FEPRX PLAN Nov 21, 2021 [id number] ABHILASH GARAY PATIENT [employer] FEPRX PLAN PRESCRIPT ION CAREM ARK FEPRX Nov 21, 2021 [id number] ABHILASH GARAY PATIENT [employer]-F EP BCBS PRESCRIPT ION FEP CAREM ARK Nov 21, 2021 [id number] ABHILASH GARAY PATIENT [place]-F EP BCBS PRESCRIPT ION FEP Jun 23, 2010 [id number] RUBI GARAYNETH PATIENT MEDICARE ([place]) MEDICARE () PART A Feb 22, 2020 PART A [id number] ABHILASH GARAY PATIENT MEDICARE ([place]) MEDICARE () PART A Feb 22, 2020 PART A [id number] [phone] ABHILASH GARAY PATIENT MEDICARE (WNR) MEDICARE (M) PART A Feb 22, 2020 PART A [id number] [phone] ABHILASH GARAY PATIENT MEDICARE (WNR) MEDICARE (M) PART A Feb 22, 2020 PART A [id number] ABHILASH GARAY PATIENT MEDICARE (WNR) MEDICARE (M) PART A Feb 22, 2020 PART A [id number] ABHILASH GARAY PATIENT Selected Encounter This section includes the information on [place] at [place] for the Encounter. Date/Time Encounter Type Encounter Description Reason Provider Source Aug 21, 2023 01:00 PM EXERCISE CLASS HEALTH/WELLBEING SRVS ICD-10-CM Y93.42 Activity, PAT Yoder [place] IHFran Encounter Template Text not used by [place] Assessments - Encounter Diagnoses This section includes the primary and secondary diagnoses documented for the Encounter. Date/Time Primary/Secondary Diagnosis Diagnosis Name Provider Source Aug 22, 2023 09:29 AM PRIMARY Activity, PEDRO Yoder [facility] [place] [facility] Plan of Treatment: Future Appointments (+ 6 months) and Future Tests (+/- 45 days) The Plan of Treatment section includes future care activities for the patient from all [place] treatmentfacilities. This section includes future appointments and future orders which are active, pending or scheduled. Future Appointments This section includes appointments that were scheduled to occur 6 months from the date of the Encounter, up to a maximum of 20 appointments. The data comes from all [place] treatment facilities. Appointment Date/Time Appointment Type Appointme nt Facility Name Aug 22, 2023 08:00 AM [facility] Aug 25, 2023 11:00 AM AM[place] [facility] Aug 28, 2023 01:00 PM AM[place]ICINE [place] [facility] [facility] Sep 01, 2023 11:00 AM AM[place] [facility] [place] [facility] Sep 04, 2023 01:00 PM AMBUL[place]ORY [place]INE [place] [facility] [place] [facility] Sep 08, 2023 11:00 AM AMBULATORY [place]ICINE [place] [facility] Sep 11, 2023 01:00 PM AMBULATORY - MEDICINE [place] [facility] [place] [facility] Sep 16, 2023 11:00 AM AMBULATORY - [place]ICINE [place] [facility] [facility] Sep 29, 2023 11:00 AM AMBULATORY - [place]ICINE [place] [facility] [facility] Oct 02, 2023 01:00 PM AMBULATORY - MEDICINE [place] [facility] [place] [facility] Oct 06, 2023 11:00 AM AMBULATORY [place]ICINE [place] [facility] Oct 06, 2023 12:40 PM AMBULATORY - MEDICINE [place] [facility] [place] [facility] Oct 09, 2023 01:00 PM AMBULATORY - MEDICINE [place] [facility] [place] [facility] Oct 13, 2023 11:00 AM AMBULATORY - MEDICINE [place] [facility] [place] [facility] Oct 16, 2023 01:00 PM AMBULATORY - MEDICINE [place] [facility] Oct 20, 2023 11:00 AM AMBULATORY - MEDICINE [place] [facility] October 23, 2023 01:00 PM AMBULATORY - MEDICINE [place] [facility] [place] [facility] October 27, 2023 11:00 AM AMBULATORY - MEDICINE [place] [facility] November 03, 2023 11:00 AM AMBULATORY - MEDICINE [place] [facility] [place] [facility] November 03, 2023 01:00 PM AMBULATORY [place]ICINE [place] [facility] Social History: Smoking Status (Most current) and Tobacco Use (All prior to encounter date) This section includes the most current, and the historical, smoking and tobacco- related health factors from the [place] facility where the Encounter took place. Current Smoking Status This section includes the most current smoking, or tobacco-related health factor, from the [place] facility where the Encounter took place. Date/Time Current Smoking Status Comment Facil ity Apr 08, 2023 09:12 AM VA-TOBACCO NEVER USED [place] [facility] Tobacco Use History This section includes a history of the smoking, or tobacco-related health factors, that were collected on or before the date of the Encounter. The data comes from the [place] facility where the Encounter took place. Date/Time Smoking Status/Tobacco Use Comment F acility Aug 09, 2021 09:20 AM [place]-TOBACCO NEVER USED [facility] Encounter Notes: All associated encounter notes This section contains the clinical notes associated to the Encounter. Date/Time Encounter Note(s) Provider Source Aug 21, 2023 02:00 PM RECREATIONAL THERA PY NOTE: LOCAL TITLE: YOGA WELLBEING STANDARD TITLE: RECREATIONAL THERAPY NOTE DATE OF NOTE: AUG 21, 2023@14:00 ENTRY DATE: AUG 22, 2023@09:27:25 AUTHOR: MARY KATE MOORE EXP COSIGNER: URGENCY: [...] triangle pose, wide leg forward bend variations, [place] 2, extended side angle pose, [place] 1, plank, cobra, locust, downward facing dog, wisdom pose, contralateral limb raises, head to knee pose, bridge, reclined twist, knees to chest; Systematic Relaxation; and Gratitude. Modifications were geared toward the [place]'s individual needs and preferences. [place] was one of five participants in Group Yoga. He practiced all the postures offered, modifying according to his needs. He practiced excellent self-care and used his breath as a tool to enhance his practice. He will return to class as his schedule allows. /yunior/ ROXANNA [id number] Inspector Salvage Signed: 08/22/2023 09:40 MARY KATE MOORE [place] [facility]
--- OUTSIDE RECORDS SUMMARY | 2024-06-29 18:49 | XMS_ITS | Encounter Summary ---
Author Name [facility] [facility] [place] [facility] [place] Address [address] [place] [address] Care Team Providers Care Gage Designer Name Role Phone ABDIRAHMAN LAKE Primary Care Provider Librety wilkes Insurance Providers: All historical and current [...] BASIC FAMIL Y Jun 24, 2009 [id number] [phone] ABHILASH GARAY PATIENT ANTHEM [place]BS [place] F[place] PREFERRED PROVIDER ORGANIZAT ION (PPO) FEP BASIC FAM Jun 24, 2009 112 [id number] [phone] ABHILASH GARAY PATIENT ANTHEM BCBS [place] F[place] PREFERRED PROVIDER ORGANIZAT ION (PPO) FEP BASIC FAM Jun 24, 2009 112 [id number] [phone] ABHILASH GARAY PATIENT [place] PREFERRED PROVIDER ORGANIZAT ION (PPO) FEP BASIC FAM Jun 24, 2009 112 [id number] [phone] ABHILASH GARAY PATIENT [place]BS [place] F[place] PREFERRED PROVIDER ORGANIZAT ION (PPO) FEP BASIC FAM Jun 24, 2009 112 [id number] [phone] ABHILASH GARAY PATIENT BCBS [place] F[place] PREFERRED PROVIDER ORGANIZAT ION (PPO) BASIC FAMIL Y Jun 24, 2009 112 [id number] ABHILASH GARAY PATIENT [place] PREFERRED PROVIDER ORGANIZAT ION (PPO) BASIC FAMIL Y Jun 24, 2009 112 [id number] ABHILASH GARAY PATIENT [place] F[place] PREFERRED PROVIDER ORGANIZAT ION (PPO) BASIC FAMIL Y Jun 24, 2009 112 [id number] [phone] ABHILASH GARAY PATIENT [place] F[place] DENTAL DENTAL INSURANCE BASIC Jul 12, 2009 DENTAL [id number] ABHILASH GARAY PATIENT [place] FEP PREFERRED PROVIDER ORGANIZAT ION (PPO) BASIC FAMIL Y Jun 24, 2009 112 [id number] [phone] ABHILASH GARAY PATIENT [place] FEP ([id number]) PRESCRIPT ION FEPRX Jun 24, 2009 [id number] [phone] ABHILASH GARAY PATIENT [place] FEP BCBS PRESCRIPT ION CAREM ARK FEPRX PLAN Nov 21, 2021 [id number] ABHILAHS GARAY PATIENT [place] FEPRX PLAN PRESCRIPT ION CAREM ARK FEPRX Nov 21, 2021 [id number] ABHILASH GARAY PATIENT [place]-F EP BCBS PRESCRIPT ION FEP CAREM ARK Nov 21, 2021 [id number] ABHILASH GARAY PATIENT [place]-F EP BCBS PRESCRIPT ION FEP Jun 23, 2010 [id number] ABHILASH GARAY PATIENT MEDICARE (WN) MEDICARE () PART A Feb 22, 2020 PART A [id number] ABHILASH GARAY PATIENT MEDICARE ([facility]) MEDICARE () PART A Feb 22, 2020 PART A [id number] [phone] ABHILASH GARAY PATIENT MEDICARE (WNR) MEDICARE (M) PART A Feb 22, 2020 PART A [id number] ABHILASH GARAY PATIENT MEDICARE (WNR) MEDICARE (M) PART A Feb 22, 2020 PART A [id number] ABHILASH GARAY PATIENT MEDICARE (WNR) MEDICARE (M) PART A Feb 22, 2020 PART A [id number] ABHILASH GARAY PATIENT Selected Encounter This section includes the information on record at [place] for the Encounter. Date/Time Encounter Type Encounter Description Reason Pro vider Source Aug 08, 2023 12:00 AM Outpatient Encounter COMMUNITY CARE CONSULT IHE Encounter Template Text not used by [place] Plan of Treatment: Future Appointments (+ 6 months) and Future Tests (+/- 45 days) The Plan of Treatment section includes future care activities for the patient from all [place] treatmentfacilities. This section includes future appointments and future orders which are active, pending or scheduled. Future Appointments This section includes appointments that were scheduled to occur 6 months from the date of the Encounter, up to a maximum of 20 appointments. The data comes from all [place] treatment facilities. Appointment Date/Time Appointment Type Appointme nt Facility Name Aug 12, 2023 11:00 AM AMBULATORY - MEDICINE [place] [facility] [place] [facility] Aug 14, 2023 01:00 PM AMBULATORY - MEDICINE [place] [facility] [place] [facility] Aug 18, 2023 11:00 AM AMBULATORY - MEDICINE [place] [facility] [place] [facility] Aug 21, 2023 01:00 PM AMBULATORY - MEDICINE [place] [facility] [place] [facility] Aug 22, 2023 08:00 AM [facility]UL[facility]ORY [facility] Aug 25, 2023 11:00 AM AMBULATORY - MEDICINE [place] [facility] [place] [facility] Aug 28, 2023 01:00 PM AMBULATORY - MEDICINE [place] [facility] [place] [facility] Sep 01, 2023 11:00 AM AMBULATORY - MEDICINE [place] [facility] [place] [facility] Sep 04, 2023 01:00 PM AMBULATORY - MEDICINE [place] [facility] [place] [facility] Sep 08, 2023 11:00 AM AMBULATORY - MEDICINE [facility] [place] [facility] Sep 11, 2023 01:00 PM AMBULATORY - MEDICINE [place] [facility] [place] [facility] Sep 16, 2023 11:00 AM AMBULATORY - MEDICINE [place] [facility] [place] [facility] Sep 29, 2023 11:00 AM AMBULATORY - MEDICINE [place] [facility] [place] [facility] Oct 02, 2023 01:00 PM AMBULATORY - MEDICINE [place] [facility] [place] [facility] Oct 06, 2023 11:00 AM AMBULATORY - MEDICINE [place] [facility] [place] [facility] Oct 06, 2023 12:40 PM AMBULATORY - MEDICINE [place] [facility] [place] [facility] Oct 09, 2023 01:00 PM AMBULATORY - MEDICINE [place] [facility] [place] [facility] Oct 13, 2023 11:00 AM AMBULATORY - MEDICINE [place] [facility] [place] [facility] Oct 16, 2023 01:00 PM AMBULATORY - MEDICINE [place] [facility] [place] [facility] Oct 20, 2023 11:00 AM AMBULATORY - MEDICINE [place] [facility] [place] [facility] Social History: Smoking Status (Most current) and Tobacco Use (All prior to encounter date) This section includes the most current, and the historical, smoking and tobacco- related health factors from the [place] facility where the Encounter took place. Current Smoking Status This section includes the most current smoking, or tobacco-related health factor, from the [place] facility where the Encounter took place. Date/Time Current Smoking Status Comment Facil carmela Apr 08, 2023 09:12 AM [facility] Tobacco Use History This section includes a history of the smoking, or tobacco-related health factors, that were collected on or before the date of the Encounter. The data comes from the [place] facility where the Encounter took place. Date/Time Smoking Status/Tobacco Use Comment F darvin Aug 09, 2021 09:20 AM [facility]CO [facility] Encounter Notes: All associated encounter notes This section contains the clinical notes associated to the Encounter. Date/Time Encounter Note(s) Provider Source Aug 08, 2023 12:00 AM NONVA CONSULT: LOCAL TITLE: COMMUNITY CARE-CONSULT RESULT NOTE STANDARD TITLE: NONVA CONSULT DATE OF NOTE: AUG 08, 2023 ENTRY DATE: AUG 22, 2023@08:28:53 AUTHOR: DAHIANA MCMILLAN COSIGNER: URGENCY: STATUS: COMPLETED VistA Imaging - Scanned Document SCANNED DOCUMENT SIGNATURE NOT REQUIRED Electronically Filed: 08/22/2023 by: DAHIANA JANG [facility]
--- OUTSIDE RECORDS SUMMARY | 2024-06-29 18:49 | XMS_ITS | Encounter Summary ---
Author Name [facility] [place] [facility] [place] [facility] [place] Address [address] [place] [address] Care Team Providers Care Investment Director Name Role Phone ABDIRAHMAN LAKE Primary Care [...] BASIC FAMIL Y Jun 24, 2009 112 [id number] [phone] ABHILASH GARAY PATIENT ANTHEM BCBS [place] F[place] PREFERRED PROVIDER ORGANIZAT ION (PPO) FEP BASIC FAM Jun 24, 2009 112 [id number] [phone] ABHILASH GARAY PATIENT ANTHEM BCBS [place] F[place] PREFERRED PROVIDER ORGANIZAT ION (PPO) FEP BASIC FAM Jun 24, 2009 112 [id number] [phone] ABHILASH GARAY PATIENT [place] PREFERRED PROVIDER ORGANIZAT ION (PPO) FEP BASIC FAM Jun 24, 2009 112 [id number] [phone] ABHILASH GARAY PATIENT [place] FEP PREFERRED PROVIDER ORGANIZAT ION (PPO) FEP BASIC FAM Jun 24, 2009 112 [id number] [phone] ABHILASH GARAY PATIENT BCBS [place] FEP PREFERRED PROVIDER ORGANIZAT ION (PPO) BASIC FAMIL Y Jun 24, 2009 [id number] ABHILASH GARAY PATIENT [place] F[place] PREFERRED PROVIDER ORGANIZAT ION (PPO) BASIC FAMIL Y Jun 24, 2009 [id number] ABHILASH GARAY PATIENT [place] PREFERRED PROVIDER ORGANIZAT ION (PPO) BASIC FAMIL Y Jun 24, 2009 112 [id number] [phone] ABHILASH GARAY PATIENT [place] F[place] DENTAL DENTAL INSURANCE BASIC Jul 12, 2009 DENTAL [id number] ABHILASH GARAY PATIENT [place] F[place] PREFERRED PROVIDER ORGANIZAT ION (PPO) BASIC FAMIL Y Jun 24, 2009 [id number] ABHILASH GARAY PATIENT [employer] FEP ([id number]) PRESCRIPT ION FEPRX Jun 24, 2009 [id number] [phone] ABHILASH GARAY PATIENT [place] FEP BCBS PRESCRIPT ION CAREM ARK FEPRX PLAN Nov 21, 2021 [id number] ABHILASH GARAY PATIENT [employer] FEPRX PLAN PRESCRIPT ION CAREM ARK FEPRX Nov 21, 2021 [id number] ABHILASH GARAY PATIENT [place]-F EP BCBS PRESCRIPT ION FEP CAREM ARK Nov 21, 2021 [id number] ABHILASH GARAY PATIENT [place]-F EP BCBS PRESCRIPT ION FEP Jun 23, 2010 [id number] ABHILASH GARAY PATIENT MEDICARE (WN) MEDICARE () PART A Feb 22, 2020 PART A [id number] ABHILASH GARAY PATIENT MEDICARE ([facility]) MEDICARE () PART A Feb 22, 2020 PART A [id number] [phone] ABHILASH GARAY PATIENT MEDICARE (WNR) MEDICARE (M) PART A Feb 22, 2020 PART A [id number] ABHILASH GARAY PATIENT MEDICARE (WNR) MEDICARE (M) PART A Feb 22, 2020 PART A [id number] ABHILASH GARAY PATIENT MEDICARE (WNR) MEDICARE (M) PART A Feb 22, 2020 PART A [id number] [phone] ABHILASH GARAY PATIENT Selected Encounter This section includes the information on record at [place] for the Encounter. Date/Time Encounter Type Encounter Description Reason Provider Source Aug 28, 2023 01:00 PM STRESS MGMT CLASS HEALTH/WELLBEING SRVS ICD-10-CM Y93.42 Activity, PAT Yoder IHFran Encounter Template Text not used by [place] Assessments - Encounter Diagnoses This section includes the primary and secondary diagnoses documented for the Encounter. Date/Time Primary/Secondary Diagnosis Diagnosis Name Provider Source Sep 01, 2023 08:04 AM PRIMARY Activity, PEDRO Yoder [facility] [place] [facility] Plan of Treatment: Future Appointments (+ 6 months) and Future Tests (+/- 45 days) The Plan of Treatment section includes future care activities for the patient from all [place] treatmentfacilities. This section includes future appointments and future orders which are active, pending or scheduled. Future Appointments This section includes appointments that were scheduled to occur 6 months from the date of the Encounter, up to a maximum of 20 appointments. The data comes from all [place] treatment facilities. Appointment Date/Time Appointment Type Appointme nt Facility Name Sep 01, 2023 11:00 AM AMBULATORY - MEDICINE [place] [facility] [facility] Sep 04, 2023 01:00 PM AMBULATORY - MEDICINE [place] [facility] [place] [facility] Sep 08, 2023 11:00 AM AMBULATORY - MEDICINE [place] [facility] [place] [facility] Sep 11, 2023 01:00 PM AMBULATORY - MEDICINE [place] [facility] [place] [facility] Sep 16, 2023 11:00 AM AMBULATORY - MEDICINE [place] [facility] [place] [facility] Sep 29, 2023 11:00 AM AMBULATORY - MEDICINE [facility] [place] [facility] Oct 02, 2023 01:00 PM AMBULATORY - MEDICINE [facility] [place] [facility] Oct 06, 2023 11:00 AM AMBULATORY - MEDICINE [facility] [place] [facility] Oct 06, 2023 12:40 PM AMBULATORY - MEDICINE [facility] [place] [facility] Oct 09, 2023 01:00 PM AMBULATORY - MEDICINE [facility] [place] [facility] Oct 13, 2023 11:00 AM AMBULATORY - MEDICINE [facility] [place] [facility] Oct 16, 2023 01:00 PM AMBULATORY - MEDICINE [facility] [place] [facility] Oct 20, 2023 11:00 AM AMBULATORY - MEDICINE [place] [facility] [place] [facility] October 23, 2023 01:00 PM AMBULATORY - MEDICINE [facility] [place] [facility] October 27, 2023 11:00 AM AMBULATORY - MEDICINE [facility] [place] [facility] November 03, 2023 11:00 AM AMBULATORY - MEDICINE [facility] [place] [facility] November 03, 2023 01:00 PM AMBULATORY - MEDICINE [facility] [place] [facility] November 06, 2023 01:00 PM AMBULATORY - MEDICINE [facility] [place] [facility] November 06, 2023 02:00 PM AMBULATORY - MEDICINE [place] [facility] [place] [facility] November 10, 2023 11:00 AM AMBULATORY - MEDICINE [place] C [facility] [place] [facility] Social History: Smoking Status (Most current) and Tobacco Use (All prior to encounter date) This section includes the most current, and the historical, smoking and tobacco- related health factors from the [place] facility where the Encounter took place. Current Smoking Status This section includes the most current smoking, or tobacco-related health factor, from the [place] facility where the Encounter took place. Date/Time Current Smoking Status Comment Odalis casey Apr 08, 2023 09:12 AM VA-TOBACCO NEVER [facility] Tobacco Use History This section includes a history of the smoking, or tobacco-related health factors, that were collected on or before the date of the Encounter. The data comes from the [place] facility where the Encounter took place. Date/Time Smoking Status/Tobacco Use Comment Gilberto boston Aug 09, 2021 09:20 AM [place]-TOBACCO NEVER USED [facility] Encounter Notes: All associated encounter notes This section contains the clinical notes associated to the Encounter. Date/Time Encounter Note(s) Provider Source Aug 28, 2023 02:30 PM RECREATIONAL THERA PY NOTE: LOCAL TITLE: YOGA WELLBEING STANDARD TITLE: RECREATIONAL THERAPY NOTE DATE OF NOTE: AUG 28, 2023@14:30 ENTRY DATE: SEP 01, 2023@08:01:56 AUTHOR: MARY KATE MOORE EXP COSIGNER: URGENCY: [...] triangle pose, wide leg forward bend variations, Buckner 2, extended side angle pose, Buckner 1, plank, cobra, locust, downward facing dog, wisdom pose, contralateral limb raises, head to knee pose, bridge, reclined twist, knees to chest; Systematic Relaxation; and Gratitude. Modifications were geared toward the Castaner's individual needs and preferences. Castaner was one of nine participants in Group Yoga. He practiced all the postures offered, modifying according to his needs. He practiced excellent self-care and was attentive to his breath. He will return to class as his schedule allows. /yunior/ MARY KATE MOORE, [id number] Parts Person Signed: 09/01/2023 08:12 MARY KATE MOORE [facility]
--- OUTSIDE RECORDS SUMMARY | 2024-06-29 18:49 | XMS_ITS ---
Author Name [facility] [place] Address [address] [place] [address] Care Team Providers Care Membership Solicitor Name Role Phone ABDIRAHMAN LAKE Primary Care [...] BASIC FAMIL Y Jun 24, 2009 112 [id number] [phone] ABHILASH GARAY PATIENT ANTHEM BCBS [place] FEP PREFERRED PROVIDER ORGANIZAT ION (PPO) FEP BASIC FAM Jun 24, 2009 112 [id number] [phone] ABHILASH GARAY PATIENT ANTHEM BCBS [place] F[place] PREFERRED PROVIDER ORGANIZAT ION (PPO) FEP BASIC FAM Jun 24, 2009 112 [id number] [phone] ABHILASH GARAY PATIENT [place] PREFERRED PROVIDER ORGANIZAT ION (PPO) FEP BASIC FAM Jun 24, 2009 112 [id number] [phone] ABHILASH GARAY PATIENT [place] PREFERRED PROVIDER ORGANIZAT ION (PPO) FEP BASIC FAM Jun 24, 2009 112 [id number] [phone] ABHILASH GARAY PATIENT BCBS [place] FEP PREFERRED PROVIDER ORGANIZAT ION (PPO) BASIC FAMIL Y Jun 24, 2009 112 [id number] ABHILASH GARAY PATIENT [place] FEP PREFERRED PROVIDER ORGANIZAT ION (PPO) BASIC FAMIL Y Jun 24, 2009 [id number] ABHILASH GARAY PATIENT [place] F[place] PREFERRED PROVIDER ORGANIZAT ION (PPO) BASIC FAMIL Y Jun 24, 2009 112 [id number] ABHILSAH GARAY PATIENT [place] F[place] DENTAL DENTAL INSURANCE BASIC Jul 12, 2009 DENTAL [id number] ABHILASH GARAY PATIENT [place] F[place] PREFERRED PROVIDER ORGANIZAT ION (PPO) BASIC FAMIL Y Jun 24, 2009 [id number] [phone] ABHILASH GARAY PATIENT [employer] FEP ([id number]) PRESCRIPT ION FEPRX Jun 24, 2009 [id number] [phone] ABHILASH GARAY PATIENT [place] FEP BCBS PRESCRIPT ION CAREM ARK FEPRX PLAN Nov 21, 2021 [id number] ABHILASH GARAY PATIENT [employer] FEPRX PLAN PRESCRIPT ION CAREM ARK FEPRX Nov 21, 2021 [id number] ABHILASH GARAY PATIENT [employer]-F EP BCBS PRESCRIPT ION FEP CAREM ARK Nov 21, 2021 [id number] ABHILASH GARAY PATIENT [place]-F EP BCBS PRESCRIPT ION FEP Jun 23, 2010 [id number] ABHILASH GARAY PATIENT MEDICARE (WN) MEDICARE () PART A Feb 22, 2020 PART A [id number] [phone] ABHILASH GARAY PATIENT MEDICARE ([facility]) MEDICARE () PART A Feb 22, 2020 PART A [id number] NV71 [phone] ABHILASH GARAY PATIENT MEDICARE (WNR) MEDICARE (M) PART A Feb 22, 2020 PART A [id number] ABHILASH GARAY PATIENT MEDICARE (WNR) MEDICARE (M) PART A Feb 22, 2020 PART A [id number] ABHILASH GARAY PATIENT MEDICARE (WNR) MEDICARE (M) PART A Feb 22, 2020 PART A [id number] [id number] [phone] ABHILASH GARAY PATIENT Selected Encounter This section includes the information on record at [place] for the Encounter. Date/Time Encounter Type Encounter Description Reason Pro vider Source Aug 15, 2023 12:00 PM Outpatient Encounter COMMUNITY CARE CONSULT IHE Encounter Template Text not used by [place] Plan of Treatment: Future Appointments (+ 6 months) and Future Tests (+/- 45 days) The Plan of Treatment section includes future care activities for the patient from all [place] treatmentfacilities. This section includes future appointments and future orders which are active, pending or scheduled. Future Appointments This section includes appointments that were scheduled to occur 6 months from the date of the Encounter, up to a maximum of 20 appointments. The data comes from all [place] treatment facilities. Appointment Date/Time Appointment Type Appointme nt Facility Name Aug 18, 2023 11:00 AM AMBULATORY - MEDICINE [place] [facility] [place] [facility] Aug 21, 2023 01:00 PM AMBULATORY - MEDICINE [place] [facility] [place] [facility] Aug 22, 2023 08:00 AM AMBULATORY - MEDICINE [facility] Aug 25, 2023 11:00 AM AMBULATORY - MEDICINE [place] [facility] [place] [facility] Aug 28, 2023 01:00 PM AMBULATORY - MEDICINE [place] [facility] [place] [facility] Sep 01, 2023 11:00 AM AMBULATORY - MEDICINE [place] [facility] [place] [facility] Sep 04, 2023 01:00 PM AMBULATORY - MEDICINE [place] [facility] [place] [facility] Sep 08, 2023 11:00 AM AMBULATORY - MEDICINE [place] [facility] [place] [facility] Sep 11, 2023 01:00 PM AMBULATORY - MEDICINE [place] [facility] [place] [facility] Sep 16, 2023 11:00 AM AMBULATORY - MEDICINE [place] [facility] [place] [facility] Sep 29, 2023 11:00 AM AMBULATORY - MEDICINE [place] [facility] [place] [facility] Oct 02, 2023 01:00 PM AMBULATORY - MEDICINE [place] [facility] [place] [facility] Oct 06, 2023 11:00 AM AMBULATORY - MEDICINE [place] [facility] [place] [facility] Oct 06, 2023 12:40 PM AMBULATORY - MEDICINE [place] [facility] [place] [facility] Oct 09, 2023 01:00 PM AMBULATORY - MEDICINE [place] [facility] [place] [facility] Oct 13, 2023 11:00 AM AMBULATORY - MEDICINE [place] [facility] [place] [facility] Oct 16, 2023 01:00 PM AMBULATORY - MEDICINE [place] [facility] [place] [facility] Oct 20, 2023 11:00 AM AMBULATORY - MEDICINE [place] [facility] [place] [facility] October 23, 2023 01:00 PM AMBULATORY - MEDICINE [place] [facility] [place] [facility] October 27, 2023 11:00 AM AMBULATORY - MEDICINE [place] [facility] [place] [facility] Social History: Smoking Status (Most current) and Tobacco Use (All prior to encounter date) This section includes the most current, and the historical, smoking and tobacco- related health factors from the [place] facility where the Encounter took place. Current Smoking Status This section includes the most current smoking, or tobacco-related health factor, from the [place] facility where the Encounter took place. Date/Time Current Smoking Status Comment Facil ity Apr 08, 2023 09:12 AM [facility] Tobacco Use History This section includes a history of the smoking, or tobacco-related health factors, that were collected on or before the date of the Encounter. The data comes from the [place] facility where the Encounter took place. Date/Time Smoking Status/Tobacco Use Comment F acjaved Aug 09, 2021 09:20 AM [facility]CO [facility] Encounter Notes: All associated encounter notes This section contains the clinical notes associated to the Encounter. Date/Time Encounter Note(s) Provider Source Aug 15, 2023 12:00 PM NONVA CONSULT: LOCAL TITLE: COMMUNITY CARE-CONSULT RESULT NOTE STANDARD TITLE: NONVA CONSULT DATE OF NOTE: AUG 15, 2023@12:00 ENTRY DATE: AUG 29, 2023@10:38:05 AUTHOR: MARY KATE GOODSON COSIGNER: URGENCY: STATUS: COMPLETED VistA Imaging - Scanned Document SCANNED DOCUMENT SIGNATURE NOT REQUIRED Electronically Filed: 08/29/2023 by: MARY KATE GOODSON MACHINE TOOL BUILDER MARY KATE GOODSON [place] [facility]
--- OUTSIDE RECORDS SUMMARY | 2024-06-29 18:49 | XMS_ITS | Encounter Summary ---
Author Name [facility] [facility] [place] Address [address] [place] [address] Care Team Providers Care Materials Analyst Name Role Phone ABDIRAHMAN LAKE Primary Care [...] BASIC FAMIL Y Jun 24, 2009 [id number] [phone] ABHILASH GARAY PATIENT ANTHE[place]BS [place] FEP PREFERRED PROVIDER ORGANIZAT ION (PPO) FEP BASIC FAM Jun 24, 2009 112 [id number] [phone] ABHILASH GARAY PATIENT ANTHEM BCBS [place] F[place] PREFERRED PROVIDER ORGANIZAT ION (PPO) FEP BASIC FAM Jun 24, 2009 112 [id number] [phone] ABHILASH GARAY PATIENT ANTHEM [place] F[place] PREFERRED PROVIDER ORGANIZAT ION (PPO) FEP BASIC FAM Jun 24, 2009 112 [id number] [phone] ABHILASH GARAY PATIENT [place] FEP PREFERRED PROVIDER ORGANIZAT ION (PPO) FEP BASIC FAM Jun 24, 2009 112 [id number] [phone] RUBI GARAYNETH PATIENT BCBS [place] FEP PREFERRED PROVIDER ORGANIZAT ION (PPO) BASIC FAMIL Y Jun 24, 2009 112 [id number] RUBI GARAYNETH PATIENT [place] PREFERRED PROVIDER ORGANIZAT ION (PPO) BASIC FAMIL Y Jun 24, 2009 112 [id number] [phone] RUBI GARAYNETH PATIENT [place] FEP PREFERRED PROVIDER ORGANIZAT ION (PPO) BASIC FAMIL Y Jun 24, 2009 112 [id number] [phone] RUBI GARAYNETH PATIENT [place] FEP DENTAL DENTAL INSURANCE BASIC Jul 12, 2009 DENTAL [id number] [phone] DEJAHDANIKARUBI ACEVESNETH PATIENT [place] FEP PREFERRED PROVIDER ORGANIZAT ION (PPO) BASIC FAMIL Y Jun 24, 2009 112 [id number] ABHILASH GARAY PATIENT [place] FEP ([id number]) PRESCRIPT ION FEPRX Jun 24, 2009 [id number] [phone] ABHILASH GARAY PATIENT [place] FEP BCBS PRESCRIPT ION CAREM ARK FEPRX PLAN Nov 21, 2021 [id number] ABHILASH GARAY PATIENT [place] FEPRX PLAN PRESCRIPT ION CAREM ARK FEPRX Nov 21, 2021 [id number] ABHILASH GARAY PATIENT [place]-F EP BCBS PRESCRIPT ION FEP CAREM ARK Nov 21, 2021 [id number] ABHILASH GARAY PATIENT [place]-F EP BCBS PRESCRIPT ION FEP Jun 23, 2010 [id number] RUBI GARAYNETH PATIENT MEDICARE ([facility]) MEDICARE () PART A Feb 22, 2020 PART A [id number] ABHILASH GARAY PATIENT MEDICARE (WNR) MEDICARE (M) PART A Feb 22, 2020 PART A [id number] ABHILASH GARAY PATIENT MEDICARE (WNR) MEDICARE (M) PART A Feb 22, 2020 PART A [id number] [phone] ABHILASH GARAY PATIENT MEDICARE (WNR) MEDICARE (M) PART A Feb 22, 2020 PART A [id number] ABHILASH GARAY PATIENT MEDICARE (WNR) MEDICARE (M) PART A Feb 22, 2020 PART A [id number] [phone] ABHILASH GARAY PATIENT Selected Encounter This section includes the information on record at CT for the Encounter. Date/Time Encounter Type Encounter Description Reason Pro vider Source Aug 21, 2023 11:18 AM Outpatient Encounter ADMIN PAT ACTIVTIES (MASNONCT) IHE Encounter Template Text not used by CT Plan of Treatment: Future Appointments (+ 6 months) and Future Tests (+/- 45 days) The Plan of Treatment section includes future care activities for the patient from all CT treatmentfacilities. This section includes future appointments and future orders which are active, pending or scheduled. Future Appointments This section includes appointments that were scheduled to occur 6 months from the date of the Encounter, up to a maximum of 20 appointments. The data comes from all CT treatment facilities. Appointment Date/Time Appointment Type Appointme nt Facility Name Aug 22, 2023 08:00 AM AMBULATORY - MEDICINE [facility] Aug 25, 2023 11:00 AM AMBULATORY - MEDICINE [facility] [place] [facility] Aug 28, 2023 01:00 PM AMBULATORY - MEDICINE [facility] [place] [facility] Sep 01, 2023 11:00 AM AMBULATORY - MEDICINE [facility] [place] [facility] Sep 04, 2023 01:00 PM AMBULATORY - MEDICINE [facility] [place] [facility] Sep 08, 2023 11:00 AM [facility] [place] [facility] [place] [facility] Sep 11, 2023 01:00 PM AMBULATORY - MEDICINE [facility] [place] [facility] Sep 16, 2023 11:00 AM AMBULATORY - MEDICINE [facility] [place] [facility] Sep 29, 2023 11:00 AM AM[facility]ULATORY [facility] [place] [facility] Oct 02, 2023 01:00 PM AM[facility]ULATORY [facility] [place] [facility] Oct 06, 2023 11:00 AM AM[facility]ULATORY [facility] [place] [place] [facility] Oct 06, 2023 12:40 PM AMBULATORY [facility] [place] [place] [facility] Oct 09, 2023 01:00 PM AMBULATORY [facility] [facility] [place] [place] [facility] Oct 13, 2023 11:00 AM AM[facility]ULATORY [facility] [place] [facility] Oct 16, 2023 01:00 PM AMBULATORY [facility] [facility] [place] [facility] Oct 20, 2023 11:00 AM AMBULATORY [facility] [place] [facility] October 23, 2023 01:00 PM AMBULATORY [facility] [place] [place] [facility] October 27, 2023 11:00 AM AMBULATORY [facility] [place] [facility] November 03, 2023 11:00 AM AMBULATORY [facility] [place] [facility] [place] [facility] November 03, 2023 01:00 PM AMBULATORY - MEDICINE [facility] [place] [facility] Social History: Smoking Status (Most current) and Tobacco Use (All prior to encounter date) This section includes the most current, and the historical, smoking and tobacco- related health factors from the CT facility where the Encounter took place. Current Smoking Status This section includes the most current smoking, or tobacco-related health factor, from the [place] facility where the Encounter took place. Date/Time Current Smoking Status Comment Facil dimitriy Apr 08, 2023 09:12 AM [facility] Tobacco Use History This section includes a history of the smoking, or tobacco-related health factors, that were collected on or before the date of the Encounter. The data comes from the CT facility where the Encounter took place. Date/Time Smoking Status/Tobacco Use Comment F acjaved Aug 09, 2021 09:20 AM [facility] Encounter Notes: All associated encounter notes This section contains the clinical notes associated to the Encounter. Date/Time Encounter Note(s) Provider Source Aug 21, 2023 11:18 AM ADMINISTRATIVE NOT E: LOCAL TITLE: CCC: SCHEDULING ADMINISTRATION STANDARD TITLE: ADMINISTRATIVE NOTE DATE OF NOTE: AUG 21, 2023@11:18:47 ENTRY DATE: AUG 21, 2023@11:18:47 AUTHOR: NONI LAMBERT COSIGNER: URGENCY: STATUS: COMPLETED CCC: SCHEDULING ADMINISTRATION Has ADDENDA Patient Demographics Patient Name: ABHILASH GARAY Patient Primary Phone: [phone] Patient Primary Address: [address] [place] [id number] Patient : 1955 Patient Age: 68 Caller/Recipient Relation to Patient: Self Administrative Administrative Note Reason: Medication Renewal Medications Refill/Renewal Request: Please return patient's call about the Levothyroxine p/u. He is able to take a call now. Thank you. /yunior/ NONI CHÁVEZ 1 [facility] Signed: 08/21/2023 11:19 Receipt Acknowledged By: 08/21/2023 15:31 /yunior/ Pili Marshall M.D. STAFF PHYSICIAN 08/21/2023 11:55 /yunior/ FERCHO MELLO RN REGISTERED NURSE 08/21/2023 ADDENDUM STATUS: COMPLETED Medication has been picked up. /yunior/ FERCHO MELLO RN REGISTERED NURSE Signed: 08/21/2023 11:55 NONI LAMBERT [facility]
--- OUTSIDE RECORDS SUMMARY | 2024-06-29 18:49 | XMS_ITS | Encounter Summary ---
Author Name [facility] [place] [facility] [place] Address [address] [place] [address] Care Team Providers Care Fish Hatchery Inspector Name Role Phone ABDIRAHMAN LAKE Primary [...] BASIC FAMIL Y Jun 24, 2009 [id number] [phone] ABHILASH GARAY PATIENT ANTHEM BCBS [place] F[place] PREFERRED PROVIDER ORGANIZAT ION (PPO) FEP BASIC FAM Jun 24, 2009 112 [id number] [phone] ABHILASH GARAY PATIENT ANTHEM [place]BS [place] F[place] PREFERRED PROVIDER ORGANIZAT ION (PPO) FEP BASIC FAM Jun 24, 2009 112 [id number] [phone] ABHILASH GARAY PATIENT [place] PREFERRED PROVIDER ORGANIZAT ION (PPO) FEP BASIC FAM Jun 24, 2009 112 [id number] [phone] ABHILASH GARAY PATIENT [place] PREFERRED PROVIDER ORGANIZAT ION (PPO) FEP BASIC FAM Jun 24, 2009 112 [id number] [phone] RUBI GARAYNETH PATIENT [place]BS [place] FEP PREFERRED PROVIDER ORGANIZAT ION (PPO) BASIC FAMIL Y Jun 24, 2009 [id number] RUBI GARAYNETH PATIENT [place] PREFERRED PROVIDER ORGANIZAT ION (PPO) BASIC FAMIL Y Jun 24, 2009 112 [id number] [phone] RUBI GARAYNETH PATIENT [place] FEP PREFERRED PROVIDER ORGANIZAT ION (PPO) BASIC FAMIL Y Jun 24, 2009 [id number] RUBI GARAYNETH PATIENT [place] F[place] DENTAL DENTAL INSURANCE BASIC Jul 12, 2009 DENTAL [id number] [phone] DEJAHDANIKARUBI ACEVESNETH PATIENT [place] F[place] PREFERRED PROVIDER ORGANIZAT ION (PPO) BASIC FAMIL Y Jun 24, 2009 112 [id number] [phone] ABHILASH GARAY PATIENT [employer] FEP ([id number]) PRESCRIPT ION FEPRX Jun 24, 2009 [id number] [phone] ABHILASH GARAY PATIENT [place] FEP BCBS PRESCRIPT ION CAREM ARK FEPRX PLAN Nov 21, 2021 [id number] ABHILASH GARAY PATIENT [place] FEPRX PLAN PRESCRIPT ION CAR[place] ARK FEPRX Nov 21, 2021 [id number] [phone] ABHILASH GARAY PATIENT [place]-F EP BCBS PRESCRIPT ION FEP CAREM ARK Nov 21, 2021 [id number] ABHILASH GARAY PATIENT [place]-F EP BCBS PRESCRIPT ION FEP Jun 23, 2010 [id number] RUBI GARAYNETH PATIENT MEDICARE ([facility]) MEDICARE () PART A Feb 22, 2020 PART A [id number] ABHILASH GARAY PATIENT MEDICARE (WNR) MEDICARE (M) PART A Feb 22, 2020 PART A [id number] ABHILASH GARAY PATIENT MEDICARE (WNR) MEDICARE (M) PART A Feb 22, 2020 PART A [id number] [place]71 [phone] ABHILASH GARAY PATIENT MEDICARE (WNR) MEDICARE (M) PART A Feb 22, 2020 PART A [id number] [id number] ABHILASH GARAY PATIENT MEDICARE (WNR) MEDICARE (M) PART A Feb 22, 2020 PART A [id number] ABHILASH GARAY PATIENT Selected Encounter This section includes the information on record at [place] for the Encounter. Date/Time Encounter Type Encounter Description Reason Pro vider Source Aug 20, 2023 09:51 AM Outpatient Encounter ADMIN PAT ACTIVTIES (MASNONCT) IHE Encounter Template Text not used by [place] Plan of Treatment: Future Appointments (+ 6 months) and Future Tests (+/- 45 days) The Plan of Treatment section includes future care activities for the patient from all [place] treatmentfacilities. This section includes future appointments and future orders which are active, pending or scheduled. Future Appointments This section includes appointments that were scheduled to occur 6 months from the date of the Encounter, up to a maximum of 20 appointments. The data comes from all [place] treatment facilities. Appointment Date/Time Appointment Type Appointme nt Facility Name Aug 21, 2023 01:00 PM AMBULATORY - [place]ICINE [place] [facility] [place] [facility] Aug 22, 2023 08:00 AM [facility] Aug [facility] 2023 11:00 AM [facility]UL[facility]ORY - [place]ICINE [place] [facility] [place] [facility] Aug 28, 2023 01:00 PM AMBULATORY - MEDICINE [place] [facility] [place] [facility] Sep 01, 2023 11:00 AM AMBULATORY - [place]ICINE [place] [facility] [place] [facility] Sep 04, 2023 01:00 PM AMBULATORY - MEDICINE [place] [facility] [place] [facility] Sep 08, 2023 11:00 AM AMBULATORY - [place]ICINE [place] [facility] [place] [facility] Sep 11, 2023 01:00 PM AMBULATORY - MEDICINE [place] [facility] [place] [facility] Sep 16, 2023 11:00 AM AMBULATORY - MEDICINE [place] [facility] [place] [facility] Sep 29, 2023 11:00 AM AMBULATORY - MEDICINE [place] [facility] [place] [facility] Oct 02, 2023 01:00 PM AMBULATORY - MEDICINE [place] [facility] [place] [facility] Oct 06, 2023 11:00 AM AMBULATORY - MEDICINE [place] [facility] [place] [facility] Oct 06, 2023 12:40 PM AMBULATORY - MEDICINE [place] [facility] [place] [facility] Oct 09, 2023 01:00 PM AMBULATORY - MEDICINE [place] [facility] [place] [facility] Oct 13, 2023 11:00 AM AMBULATORY - MEDICINE [place] [facility] [place] [facility] Oct 16, 2023 01:00 PM AMBULATORY - MEDICINE [place] [facility] [place] [facility] Oct 20, 2023 11:00 AM AMBULATORY - MEDICINE [place] [facility] [place] [facility] October 23, 2023 01:00 PM AMBULATORY - MEDICINE [place] [facility] [place] [facility] October 27, 2023 11:00 AM AMBULATORY - MEDICINE [place] [facility] [place] [facility] November 03, 2023 11:00 AM AMBULATORY - MEDICINE [place] [facility] [place] [facility] Social History: Smoking Status (Most current) and Tobacco Use (All prior to encounter date) This section includes the most current, and the historical, smoking and tobacco- related health factors from the [place] facility where the Encounter took place. Current Smoking Status This section includes the most current smoking, or tobacco-related health factor, from the [place] facility where the Encounter took place. Date/Time Current Smoking Status Comment Facil carmela Apr 08, 2023 09:12 AM [facility]ACCO [facility] Tobacco Use History This section includes a history of the smoking, or tobacco-related health factors, that were collected on or before the date of the Encounter. The data comes from the [place] facility where the Encounter took place. Date/Time Smoking Status/Tobacco Use Comment F darvin Aug 09, 2021 09:20 AM [facility]BACCO [facility] Encounter Notes: All associated encounter notes This section contains the clinical notes associated to the Encounter. Date/Time Encounter Note(s) Provider Source Aug 20, 2023 03:51 PM ADDENDUM: LOCAL TITLE: Addendum STANDARD TITLE: ADDENDUM DATE OF NOTE: AUG 20, 2023@15:51:18 ENTRY DATE: AUG 20, 2023@15:51:19 AUTHOR: BEATRIZ HOWARD COSIGNER: URGENCY: STATUS: COMPLETED [place] requesting a call back from [facility]CT as he would like to waste picker prescription LEVOTHYROXINE tomorrow 08/21/23 while he is in [place]. can be reached at number on file. /yunior/ BEATRIZ CHÁVEZ 1 [facility] Signed: 08/20/2023 15:52 Receipt Acknowledged By: 08/25/2023 09:42 /yunior/ KASIA SMILEY LPN LICENSED PRACTICAL NURSE 08/25/2023 09:43 /yunior/ FERCHO MELLO RN REGISTERED NURSE === --- Original Document --- 08/20/23 CCC: SCHEDULING ADMINISTRATION: Patient Demographics Patient Name: ABHILASH GARAY Patient Primary Phone: [phone] Patient Primary Address: [address] [place] [address] Patient : 1955 Patient Age: 68 Call Back Number: [phone] Caller/Recipient Relation to Patient: Self Administrative Administrative Note Reason: Other Administrative Note Comments: IS REQUESTING A RETURN CALL TODAY WITH STATUS OF DOSAGE CHANGE OF LEVOTHYROXINE. HIS CONTACT NUMBER IS [phone]. /es/ QUIANA [email or web address] [facility] Signed: 08/20/2023 09:51 Receipt Acknowledged By: 08/25/2023 09:41 /oriana SMILEY LPN LICENSED PRACTICAL NURSE 08/20/2023 13:54 /yunior/ FERCHO MELLO RN REGISTERED NURSE [facility] Aug 20, 2023 09:51 AM ADMINISTRATIVE NOTE: LOCAL TITLE: CCC: SCHEDULING ADMINISTRATION STANDARD TITLE: ADMINISTRATIVE NOTE DATE OF NOTE: AUG 20, 2023@09:51:16 ENTRY DATE: AUG 20, 2023@09:51:16 AUTHOR: QUIANA HOWARD COSIGNER: URGENCY: STATUS: COMPLETED CCC: SCHEDULING ADMINISTRATION Has ADDENDA Patient Demographics Patient Name: ABHILASH GARAY Patient Primary Phone: [phone] Patient Primary Address: [address] [place] [address] Patient : 1955 Patient Age: 68 Call Back Number: [phone] Caller/Recipient Relation to Patient: Self Administrative Administrative Note Reason: Other Administrative Note Comments: IS REQUESTING A RETURN CALL TODAY WITH STATUS OF DOSAGE CHANGE OF LEVOTHYROXINE. HIS CONTACT NUMBER IS [phone]. /es/ QUIANA [email or web address] [facility] M[facility] Signed: 08/20/2023 09:51 Receipt Acknowledged By: 08/25/2023 09:41 /es/ KASIA SMILEY LPN LICENSED PRACTICAL NURSE 08/20/2023 13:54 /es/ FERCHO MELLO RN REGISTERED NURSE 08/20/2023 ADDENDUM STATUS: COMPLETED requesting a call back from [place] as he would like to waste picker prescription LEVOTHYROXINE tomorrow 08/21/23 while he is in [place]. [place] can be reached at number on file. /es/ BEATRIZ CHÁVEZ 1 [facility] Signed: 08/20/2023 15:52 Receipt Acknowledged By: * AWAITING SIGNATURE * KASIA SMILEY * AWAITING SIGNATURE * FERCHO MELLO [facility]
--- OUTSIDE RECORDS SUMMARY | 2024-06-29 18:49 | XMS_ITS | Encounter Summary ---
Author Name [facility] [place] [facility] [place] Address [address] [place] [address] Care Team Providers Care Drupal Developer Name Role Phone ABDIRAHMAN LAKE Primary Care [...] BASIC FAMIL Y Jun 24, 2009 112 [id number] [phone] ABHILASH GARAY PATIENT ANTHEM [place]BS [place] FEP PREFERRED PROVIDER ORGANIZAT ION (PPO) FEP BASIC FAM Jun 24, 2009 112 [id number] [phone] ABHILASH GARAY PATIENT ANTHEM [place]BS [place] FEP PREFERRED PROVIDER ORGANIZAT ION (PPO) FEP BASIC FAM Jun 24, 2009 112 [id number] [phone] ABHILASH GARAY PATIENT [place] PREFERRED PROVIDER ORGANIZAT ION (PPO) FEP BASIC FAM Jun 24, 2009 112 [id number] [phone] ABHILASH GARAY PATIENT [place] FEP PREFERRED PROVIDER ORGANIZAT ION (PPO) FEP BASIC FAM Jun 24, 2009 112 [id number] [phone] ABHILASH GARAY PATIENT BCBS [place] FEP PREFERRED PROVIDER ORGANIZAT ION (PPO) BASIC FAMIL Y Jun 24, 2009 112 [id number] ABHILASH GARAY PATIENT [place] PREFERRED PROVIDER ORGANIZAT ION (PPO) BASIC FAMIL Y Jun 24, 2009 112 [id number] [phone] ABHILASH GARAY PATIENT [place] FEP PREFERRED PROVIDER ORGANIZAT ION (PPO) BASIC FAMIL Y Jun 24, 2009 112 [id number] ABHILASH GARAY PATIENT [place] FEP DENTAL DENTAL INSURANCE BASIC Jul 12, 2009 DENTAL [id number] [phone] ABHILASH GARAY PATIENT [place] FEP PREFERRED PROVIDER ORGANIZAT ION (PPO) BASIC FAMIL Y Jun 24, 2009 112 [id number] ABHILASH GARAY PATIENT [place] FEP ([id number]) PRESCRIPT ION FEPRX Jun 24, 2009 [id number] [phone] ABHILASH GARAY PATIENT [place] FEP BCBS PRESCRIPT ION CAREM ARK FEPRX PLAN Nov 21, 2021 [id number] ABHILASH GARAY PATIENT [place] FEPRX PLAN PRESCRIPT ION CAREM ARK FEPRX Nov 21, 2021 [id number] ABHILASH GARAY PATIENT [place]-F EP BCBS PRESCRIPT ION FEP CAREM ARK Nov 21, 2021 [id number] ABHILASH GARAY PATIENT [place]-F EP BCBS PRESCRIPT ION FEP Jun 23, 2010 [id number] RUBI GARAYNETH PATIENT MEDICARE (WN) MEDICARE () PART A Feb 22, 2020 PART A [id number] ABHILASH GARAY PATIENT MEDICARE (WN) MEDICARE () PART A Feb 22, 2020 PART A [id number] ABHILASH GARAY PATIENT MEDICARE (WNR) MEDICARE (M) PART A Feb 22, 2020 PART A [id number] ABHILASH GARAY PATIENT MEDICARE (WNR) MEDICARE (M) PART A Feb 22, 2020 PART A [id number] ABHILASH GARAY PATIENT MEDICARE (WNR) MEDICARE (M) PART A Feb 22, 2020 PART A [id number] ABHILASH GARAY PATIENT Selected Encounter This section includes the information on record at [place] for the Encounter. Date/Time Encounter Type Encounter Description Reason Provider Source Sep 04, 2023 01:00 PM EXERCISE CLASS HEALTH/WELLBEING SRVS ICD-10-CM Y93.42 Activity, PAT Yoder [place] IHE Encounter Template Text not used by [place] Assessments - Encounter Diagnoses This section includes the primary and secondary diagnoses documented for the Encounter. Date/Time Primary/Secondary Diagnosis Diagnosis Name Provider Source Sep 04, 2023 03:32 PM PRIMARY Activity, PEDRO Yoder [facility] [place] [facility] Plan of Treatment: Future Appointments (+ 6 months) and Future Tests (+/- 45 days) The Plan of Treatment section includes future care activities for the patient from all [place] treatmentfacilities. This section includes future appointments and future orders which are active, pending or scheduled. Future Appointments This section includes appointments that were scheduled to occur 6 months from the date of the Encounter, up to a maximum of 20 appointments. The data comes from all [place] treatment facilities. Appointment Date/Time Appointment Type Appointme nt Facility Name Sep 08, 2023 11:00 AM AMBULATORY - MEDICINE IN [facility] [place] [facility] Sep 11, 2023 01:00 PM AMBULATORY - MEDICINE IN [facility] [place] [facility] Sep 16, 2023 11:00 AM AMBULATORY - MEDICINE IN [facility] [place] [facility] Sep 29, 2023 11:00 AM AMBULATORY - MEDICINE IN [facility] [place] [facility] Oct 02, 2023 01:00 PM AMBULATORY - MEDICINE [facility] [place] [facility] Oct 06, 2023 11:00 AM AMBULATORY - MEDICINE [place] [facility] [place] [facility] Oct 06, 2023 12:40 PM AMBULATORY - MEDICINE [place] [facility] [place] [facility] Oct 09, 2023 01:00 PM AMBULATORY - MEDICINE [place] [facility] [place] [facility] Oct 13, 2023 11:00 AM AMBULATORY - MEDICINE [place] [facility] [place] [facility] Oct 16, 2023 01:00 PM AMBULATORY - MEDICINE [place] [facility] [place] [facility] Oct 20, 2023 11:00 AM AMBULATORY - MEDICINE [place] [facility] [place] [facility] October 23, 2023 01:00 PM AMBULATORY - MEDICINE [place] [facility] [place] [facility] October 27, 2023 11:00 AM AMBULATORY - MEDICINE [place] [facility] [place] [facility] November 03, 2023 11:00 AM AMBULATORY - MEDICINE [place] [facility] [place] [facility] November 03, 2023 01:00 PM AMBULATORY - MEDICINE [place] [facility] [place] [facility] November 06, 2023 01:00 PM AMBULATORY - MEDICINE [place] [facility] [place] [facility] November 06, 2023 02:00 PM AMBULATORY - MEDICINE [place] [facility] [place] [facility] November 10, 2023 11:00 AM AMBULATORY - MEDICINE [place] [facility] [place] [facility] November 13, 2023 10:30 AM AMBULATORY - MEDICINE [place] [facility] [place] [facility] November 18, 2023 11:00 AM AMBULATORY - MEDICINE [place] [facility] [place] [facility] Social History: Smoking Status (Most current) [...] 08, 2023 09:12 AM VA-TOBACCO NEVER USED IN [facility] [place] [facility] Tobacco Use History This section includes a history of the smoking, or tobacco-related health factors, that were collected on or before the date of the Encounter. The data comes from the [place] facility where the Encounter took place. Date/Time Smoking Status/Tobacco Use Comment Gilberto boston Aug 09, 2021 09:20 AM [place]-TOBACCO NEVER USED [facility] Encounter Notes: All associated encounter notes This section contains the clinical notes associated to the Encounter. Date/Time Encounter Note(s) Provider Source Sep 04, 2023 02:30 PM RECREATIONAL THERA PY NOTE: LOCAL TITLE: YOGA WELLBEING STANDARD TITLE: RECREATIONAL THERAPY NOTE DATE OF NOTE: SEP 04, 2023@14:30 ENTRY DATE: SEP 04, 2023@15:28:45 AUTHOR: MARY KATE MOORE EXP COSIGNER: URGENCY: [...] triangle pose, wide leg forward bend variations, [place] 2, extended side angle pose, [place] 1, plank, cobra, locust, downward facing dog, wisdom pose, contralateral limb raises, head to knee pose, bridge, reclined twist, knees to chest; Systematic Relaxation; and Gratitude. Modifications were geared toward the 's individual needs and preferences. was one of eight participants in Group Yoga. He practiced all the postures offered, modifying according to his needs. He practiced excellent self-care and used his breath as a tool to enhance his practice. He will return to class as his schedule allows. /yunior/ MARY KATE MOORE, [id number] Children'S Entertainer Signed: 09/04/2023 15:36 MARY KATE MOORE [facility]
--- OUTSIDE RECORDS SUMMARY | 2024-06-29 18:49 | XMS_ITS | Encounter Summary ---
Author Name [facility] [place] [facility] [place] Organization [facility] [place] Address [address] [place] [address] Care Team Providers Care Sales Development Consultant Name Role Phone ABDIRAHMAN LAKE Primary Care [...] BASIC FAMIL Y Jun 24, 2009 112 [id number] [phone] ABHILASH GARAY PATIENT ANTHEM [place]BS [place] F[place] PREFERRED PROVIDER ORGANIZAT ION (PPO) FEP BASIC FAM Jun 24, 2009 112 [id number] [phone] ABHILASH GARAY PATIENT [place]THE[place] F[place] PREFERRED PROVIDER ORGANIZAT ION (PPO) FEP BASIC FAM Jun 24, 2009 112 [id number] [phone] ABHILASH GARAY PATIENT [place] PREFERRED PROVIDER ORGANIZAT ION (PPO) FEP BASIC FAM Jun 24, 2009 112 [id number] [phone] ABHILASH GARAY PATIENT [place] PREFERRED PROVIDER ORGANIZAT ION (PPO) FEP BASIC FAM Jun 24, 2009 112 [id number] [phone] ABHILASH GARAY PATIENT BCBS [place] FEP PREFERRED PROVIDER ORGANIZAT ION (PPO) BASIC FAMIL Y Jun 24, 2009 [id number] ABHILASH GARAY PATIENT [place] F[place] PREFERRED PROVIDER ORGANIZAT ION (PPO) BASIC FAMIL Y Jun 24, 2009 [id number] ABHILASH GARAY PATIENT [place] FEP PREFERRED PROVIDER ORGANIZAT ION (PPO) BASIC FAMIL Y Jun 24, 2009 [id number] ABHILASH GARAY PATIENT [place] F[place] DENTAL DENTAL INSURANCE BASIC Jul 12, 2009 DENTAL [id number] [phone] ABHILASH GARAY PATIENT [place] FEP PREFERRED PROVIDER ORGANIZAT ION (PPO) BASIC FAMIL Y Jun 24, 2009 [id number] ABHILASH GARAY PATIENT [place] FEP ([id number]) PRESCRIPT ION FEPRX Jun 24, 2009 [id number] [phone] ABHILASH GARAY PATIENT [place] FEP BCBS PRESCRIPT ION CAREM ARK FEPRX PLAN Nov 21, 2021 [id number] ABHILASH GARAY PATIENT [place] FEPRX PLAN PRESCRIPT ION CAREM ARK FEPRX Nov 21, 2021 [id number] ABHILASH GARAY PATIENT [place]-F EP BCBS PRESCRIPT ION FEP CAREM ARK Nov 21, 2021 [id number] ABHILASH GARAY PATIENT [place]-F EP BCBS PRESCRIPT ION FEP Jun 23, 2010 [id number] RUBI GARAYNETH PATIENT MEDICARE (WN) MEDICARE () PART A Feb 22, 2020 PART A [id number] [phone] ABHILASH GARAY PATIENT MEDICARE (WN) MEDICARE () PART A Feb 22, 2020 PART A [id number] NV71 [phone] ABHILASH GARAY PATIENT MEDICARE (WNR) MEDICARE (M) PART A Feb 22, 2020 PART A [id number] ABHILASH GARAY PATIENT MEDICARE (WNR) MEDICARE (M) PART A Feb 22, 2020 PART A [id number] NV71 ABHILASH GARAY PATIENT MEDICARE (WNR) MEDICARE (M) PART A Feb 22, 2020 PART A [id number] NV71 ABHILASH GARAY PATIENT Selected Encounter This section includes the information on record at [place] for the Encounter. Date/Time Encounter Type Encounter Description Reason Provider Source Sep 01, 2023 11:00 AM EXERCISE CLASS HEALTH/WELLBEING SRVS ICD-10-CM Y93.42 Activity, PAT Yoder [place] IHE Encounter Template Text not used by [place] Assessments - Encounter Diagnoses This section includes the primary and secondary diagnoses documented for the Encounter. Date/Time Primary/Secondary Diagnosis Diagnosis Name Provider Source Sep 01, 2023 02:49 PM PRIMARY Activity, PEDRO Yoder [facility] [place] [facility] Plan of Treatment: Future Appointments (+ 6 months) and Future Tests (+/- 45 days) The Plan of Treatment section includes future care activities for the patient from all [place] treatmentfacilities. This section includes future appointments and future orders which are active, pending or scheduled. Future Appointments This section includes appointments that were scheduled to occur 6 months from the date of the Encounter, up to a maximum of 20 appointments. The data comes from all [place] treatment facilities. Appointment Date/Time Appointment Type Appointme nt Facility Name Sep 04, 2023 01:00 PM AMBULATORY - MEDICINE [place] [facility] [place] [facility] Sep 08, 2023 11:00 AM AMBULATORY - MEDICINE [facility] [place] [facility] Sep 11, 2023 01:00 PM AMBULATORY - MEDICINE [facility] [place] [facility] Sep 16, 2023 11:00 AM AMBULATORY - MEDICINE [place] [facility] [place] [facility] Sep 29, 2023 11:00 AM AMBULATORY - MEDICINE [place] [facility] [place] [facility] Oct 02, 2023 01:00 PM AMBULATORY - MEDICINE [place] [facility] [place] [facility] Oct 06, 2023 11:00 AM AMBULATORY - MEDICINE [place] [facility] [place] [facility] Oct 06, 2023 12:40 PM AMBULATORY - MEDICINE [place] [facility] [place] [facility] Oct 09, 2023 01:00 PM AMBULATORY - MEDICINE [place] [facility] [place] [facility] Oct 13, 2023 11:00 AM AMBULATORY - MEDICINE [place] [facility] [place] [facility] Oct 16, 2023 01:00 PM AMBULATORY - MEDICINE [place] [facility] [place] [facility] Oct 20, 2023 11:00 AM AMBULATORY - MEDICINE [place] [facility] [place] [facility] October 23, 2023 01:00 PM AMBULATORY - MEDICINE [place] [facility] [place] [facility] October 27, 2023 11:00 AM AMBULATORY - MEDICINE [place] [facility] [place] [facility] November 03, 2023 11:00 AM AMBULATORY - MEDICINE [place] [facility] [place] [facility] November 03, 2023 01:00 PM AMBULATORY - MEDICINE [place] [facility] [place] [facility] November 06, 2023 01:00 PM AMBULATORY - MEDICINE [place] [facility] [place] [facility] November 06, 2023 02:00 PM AMBULATORY - MEDICINE [place] [facility] [place] [facility] November 10, 2023 11:00 AM AMBULATORY - MEDICINE [place] [facility] [place] [facility] November 13, 2023 10:30 AM AMBULATORY - MEDICINE [place] [facility] [place] [facility] Social History: Smoking Status (Most current) and Tobacco Use (All prior to encounter date) This section includes the most current, and the historical, smoking and tobacco- related health factors from the [place] facility where the Encounter took place. Current Smoking Status This section includes the most current smoking, or tobacco-related health factor, from the [place] facility where the Encounter took place. Date/Time Current Smoking Status Comment Odalis casey Apr 08, 2023 09:12 AM VA-TOBACCO NEVER USED [place] [facility] [place] [facility] Tobacco Use History This section includes a history of the smoking, or tobacco-related health factors, that were collected on or before the date of the Encounter. The data comes from the [place] facility where the Encounter took place. Date/Time Smoking Status/Tobacco Use Comment Gilberto boston Aug 09, 2021 09:20 AM [place]-TOBACCO NEVER USED [facility] Encounter Notes: All associated encounter notes This section contains the clinical notes associated to the Encounter. Date/Time Encounter Note(s) Provider Source Sep 01, 2023 12:30 PM RECREATIONAL THERA PY NOTE: LOCAL TITLE: YOGA WELLBEING STANDARD TITLE: RECREATIONAL THERAPY NOTE DATE OF NOTE: SEP 01, 2023@12:30 ENTRY DATE: SEP 01, 2023@14:43:04 AUTHOR: MARY KATE MOORE EXP COSIGNER: URGENCY: [...] triangle pose, wide leg forward bend variations, [place] 2, extended side angle pose, [place] 1, plank, cobra, locust, downward facing dog, wisdom pose, contralateral limb raises, head to knee pose, bridge, reclined twist, knees to chest; Systematic Relaxation; and Gratitude. Modifications were geared toward the 's individual needs and preferences. was one of ten participants in Group Yoga. He practiced all the postures offered, using a chair, yoga blocks and a yoga strap for support as needed. He was attentive to his breath throughout the session. will return to class as his schedule allows. /yunior/ MARY KATE MOORE, [id number] Loom Fixer Signed: 09/01/2023 14:54 MARY KATE MOORE [facility]
--- OUTSIDE RECORDS SUMMARY | 2024-06-29 18:49 | XMS_ITS | Encounter Summary ---
Author Name [place] Address [address] [place] [address] Care Team Providers Care Pipeline Gang Supervisor Name Role Phone ABDIRAHMAN LAKE Primary [...] BASIC FAMIL Y Jun 24, 2009 [id number] [phone] ABHILASH GARAY PATIENT ANTHEM BCBS [place] FEP PREFERRED PROVIDER ORGANIZAT ION (PPO) FEP BASIC FAM Jun 24, 2009 112 [id number] [phone] ABHILASH GARAY PATIENT ANTHEM [place] F[place] PREFERRED PROVIDER ORGANIZAT ION (PPO) FEP BASIC FAM Jun 24, 2009 112 [id number] [phone] ABHILASH GARAY PATIENT [place] PREFERRED PROVIDER ORGANIZAT ION (PPO) FEP BASIC FAM Jun 24, 2009 112 [id number] [phone] ABHILASH GARAY PATIENT [place] PREFERRED PROVIDER ORGANIZAT ION (PPO) FEP BASIC FAM Jun 24, 2009 112 [id number] [phone] ABHILASH GARAY PATIENT [place]BS [place] FEP PREFERRED PROVIDER ORGANIZAT ION (PPO) BASIC FAMIL Y Jun 24, 2009 [id number] ABHILASH GARAY PATIENT [place] FEP PREFERRED PROVIDER ORGANIZAT ION (PPO) BASIC FAMIL Y Jun 24, 2009 [id number] ABHILASH GARAY PATIENT [place] FEP PREFERRED PROVIDER ORGANIZAT ION (PPO) BASIC FAMIL Y Jun 24, 2009 112 [id number] [phone] ABHILASH GARAY PATIENT [place] FEP DENTAL DENTAL INSURANCE BASIC Jul 12, 2009 DENTAL [id number] ABHILASH GARAY PATIENT [place] FEP PREFERRED PROVIDER ORGANIZAT ION (PPO) BASIC FAMIL Y Jun 24, 2009 112 [id number] [phone] ABHILASH GARAY PATIENT [place] FEP ([id number]) PRESCRIPT ION FEPRX Jun 24, 2009 [id number] [phone] ABHILASH GARAY PATIENT [place] FEP BCBS PRESCRIPT ION CAREM ARK FEPRX PLAN Nov 21, 2021 [id number] ABHILASH GARAY PATIENT [employer] FEPRX PLAN PRESCRIPT ION CAREM ARK FEPRX Nov 21, 2021 [id number] ABHILASH GARAY PATIENT [place]-F EP BCBS PRESCRIPT ION FEP CAREM ARK Nov 21, 2021 [id number] ABHILASH GARAY PATIENT [place]-F EP BCBS PRESCRIPT ION FEP Jun 23, 2010 [id number] ABHILASH GARAY PATIENT MEDICARE (WN) MEDICARE () PART A Feb 22, 2020 PART A [id number] [phone] ABHILASH GARAY PATIENT MEDICARE ([facility]) MEDICARE () PART A Feb 22, 2020 PART A [id number] ABHILASH GARAY PATIENT MEDICARE (WNR) MEDICARE (M) PART A Feb 22, 2020 PART A [id number] ABHILASH GARAY PATIENT MEDICARE (WNR) MEDICARE (M) PART A Feb 22, 2020 PART A [id number] NV71 [phone] ABHILASH GARAY PATIENT MEDICARE (WNR) MEDICARE (M) PART A Feb 22, 2020 PART A [id number] ABHILASH GARAY PATIENT Selected Encounter This section includes the information on record at [place] for the Encounter. Date/Time Encounter Type Encounter Description Reason Pro vider Source Aug 29, 2023 03:17 PM Outpatient Encounter [facility] TREATMENT IHE Encounter Template Text not used by [place] Plan of Treatment: Future Appointments (+ 6 months) and Future Tests (+/- 45 days) The Plan of Treatment section includes future care activities for the patient from all [place] treatmentfacilities. This section includes future appointments and future orders which are active, pending or scheduled. Future Appointments This section includes appointments that were scheduled to occur 6 months from the date of the Encounter, up to a maximum of 20 appointments. The data comes from all [place] treatment facilities. Appointment Date/Time Appointment Type Appointme nt Facility Name Sep 01, 2023 11:00 AM AM[place]ULATORY [place] [facility] [place] [facility] Sep 04, 2023 01:00 PM AM[place]ULATORY - [place]ICINE [place] [facility] [place] [facility] Sep 08, 2023 11:00 AM AM[place]ULATORY - [place]ICINE [place] [facility] [place] [facility] Sep 11, 2023 01:00 PM AMBULATORY - MEDICINE [place] [facility] [place] [facility] Sep 16, 2023 11:00 AM AMBULATORY - [place]ICINE [place] [facility] [place] [facility] Sep 29, 2023 11:00 AM AMBULATORY - MEDICINE [place] [facility] [place] [facility] Oct 02, 2023 01:00 PM AMBULATORY - MEDICINE [place] [facility] [place] [facility] Oct 06, 2023 11:00 AM AMBULATORY - MEDICINE [place] [facility] [place] [facility] Oct 06, 2023 12:40 PM AMBULATORY - MEDICINE [place] [facility] [place] [facility] Oct 09, 2023 01:00 PM AMBULATORY - MEDICINE [place] [facility] [place] [facility] Oct 13, 2023 11:00 AM AMBULATORY - MEDICINE [place] [facility] [place] [facility] Oct 16, 2023 01:00 PM AMBULATORY - MEDICINE [place] [facility] [place] [facility] Oct 20, 2023 11:00 AM AMBULATORY - MEDICINE [place] [facility] [place] [facility] October 23, 2023 01:00 PM AMBULATORY - MEDICINE [place] [facility] [place] [facility] October 27, 2023 11:00 AM AMBULATORY - MEDICINE [place] [facility] [place] [facility] November 03, 2023 11:00 AM AMBULATORY - MEDICINE [place] [facility] [place] [facility] November 03, 2023 01:00 PM AMBULATORY - MEDICINE [place] [facility] [place] [facility] November 06, 2023 01:00 PM AMBULATORY - MEDICINE [place] [facility] [place] [facility] November 06, 2023 02:00 PM AMBULATORY - MEDICINE [place] [facility] [place] [facility] November 10, 2023 11:00 AM AM[place]ULATORY [place]ICINE [place] [facility] [place] [facility] Social History: Smoking Status (Most current) and Tobacco Use (All prior to encounter date) This section includes the most current, and the historical, smoking and tobacco- related health factors from the [place] facility where the Encounter took place. Current Smoking Status This section includes the most current smoking, or tobacco-related health factor, from the [place] facility where the Encounter took place. Date/Time Current Smoking Status Comment Odalis casey Apr 08, 2023 09:12 AM VA-TOBACCO NEVER USED [facility] Tobacco Use History This section includes a history of the smoking, or tobacco-related health factors, that were collected on or before the date of the Encounter. The data comes from the [place] facility where the Encounter took place. Date/Time Smoking Status/Tobacco Use Comment F darvin Aug 09, 2021 09:20 AM VA[facility]TOBACCO [facility] Encounter Notes: All associated encounter notes This section contains the clinical notes associated to the Encounter. Date/Time Encounter Note(s) Provider Source Aug 29, 2023 03:17 PM LETTERS: LOCAL TITLE: PATIENT LETTER (B) STANDARD TITLE: LETTERS DATE OF NOTE: AUG 29, 2023@15:17 ENTRY DATE: AUG 29, 2023@15:17:22 AUTHOR: CATHIE CULLEN COSIGNER: URGENCY: STATUS: COMPLETED [facility] Toll Free Number [facility] scheduling can be reached at ext. [phone] [facility]- ext. [phone] [facility]- ext. [phone] [facility]- ext. [phone] AUG 29, 2023 ABHILASH GARAY [address], [place] [address] Dear ABHILASH GARAY We would like to assist you in scheduling a ACUPUNCTURE CONSULT appointment at the [place]. We have been unable to reach you by phone. To schedule this appointment please call us at [phone]. Our booking appointment hours are Friday through Friday from 8:00 am to 4:00 pm. Please leave a message if you receive voicemail and let us know a good time and telephone number where we can reach you. If we dont hear back from you within 14 days from the date of this letter we will discontinue the request. If you have already scheduled this appointment, please disregard this letter. Your health is important to us. Sincerely, [facility] [address] [facility] [address] [place] [address] [place] [address] [facility] [address] [place] [address] [place] [address] ext. [phone] [facility] [address] [facility] [address] [place] [address] [place] [address] [phone] [phone] ext[address] [phone] CATHIE CULLEN [facility]
--- OUTSIDE RECORDS SUMMARY | 2024-06-29 18:49 | XMS_ITS | Encounter Summary ---
Author Name [facility] [place] [facility] [place] Address [address] [place] [address] Care Team Providers Care Assembly Inspector Helper Name Role Phone ABDIRAHMAN LAKE Primary Care [...] BASIC FAMIL Y Jun 24, 2009 112 [id number] [phone] ABHILASH GARAY PATIENT ANTHEM [place]BS [place] F[place] PREFERRED PROVIDER ORGANIZAT ION (PPO) FEP BASIC FAM Jun 24, 2009 112 [id number] [phone] ABHILASH GARAY PATIENT ANTHEM BCBS [place] F[place] PREFERRED PROVIDER ORGANIZAT ION (PPO) FEP BASIC FAM Jun 24, 2009 112 [id number] [phone] ABHILASH GARAY PATIENT ANTHEM [place] PREFERRED PROVIDER ORGANIZAT ION (PPO) FEP BASIC FAM Jun 24, 2009 112 [id number] [phone] ABHILASH GARAY PATIENT [place]BS [place] FEP PREFERRED PROVIDER ORGANIZAT ION (PPO) FEP BASIC FAM Jun 24, 2009 112 [id number] [phone] RUBI GARAYNETH PATIENT BCBS [place] FEP PREFERRED PROVIDER ORGANIZAT ION (PPO) BASIC FAMIL Y Jun 24, 2009 [id number] RUBI GARAYNETH PATIENT [place] PREFERRED PROVIDER ORGANIZAT ION (PPO) BASIC FAMIL Y Jun 24, 2009 [id number] RUBI GARAYNETH PATIENT [place] FEP PREFERRED PROVIDER ORGANIZAT ION (PPO) BASIC FAMIL Y Jun 24, 2009 [id number] RUBI GARAYNETH PATIENT [place] F[place] DENTAL DENTAL INSURANCE BASIC Jul 12, 2009 DENTAL [id number] [phone] DEJAHDANIKARUBI ACEVESNETH PATIENT [place] FEP PREFERRED PROVIDER ORGANIZAT ION (PPO) BASIC FAMIL Y Jun 24, 2009 112 [id number] [phone] ABHILASH GARAY PATIENT [employer] FEP ([id number]) PRESCRIPT ION FEPRX Jun 24, 2009 [id number] [phone] ABHILASH GARAY PATIENT [place] FEP BCBS PRESCRIPT ION CAREM ARK FEPRX PLAN Nov 21, 2021 [id number] ABHILASH GARAY PATIENT [employer] FEPRX PLAN PRESCRIPT ION CAREM ARK FEPRX Nov 21, 2021 [id number] ABHILASH GARAY PATIENT [place]-F EP BCBS PRESCRIPT ION FEP CAREM ARK Nov 21, 2021 [id number] ABHILASH GARAY PATIENT [place]-F EP BCBS PRESCRIPT ION FEP Jun 23, 2010 [id number] RUBI GARAYNETH PATIENT MEDICARE ([facility]) MEDICARE () PART A Feb 22, 2020 PART A [id number] ABHILASH GARAY PATIENT MEDICARE (WNR) MEDICARE (M) PART A Feb 22, 2020 PART A [id number] [phone] ABHILASH GARAY PATIENT MEDICARE (WNR) MEDICARE (M) PART A Feb 22, 2020 PART A [id number] [phone] ABHILASH GARAY PATIENT MEDICARE (WNR) MEDICARE (M) PART A Feb 22, 2020 PART A [id number] ABHILASH GARAY PATIENT MEDICARE (WNR) MEDICARE (M) PART A Feb 22, 2020 PART A [id number] ABHILASH GARAY PATIENT Selected Encounter This section includes the information on record at [place] for the Encounter. Date/Time Encounter Type Encounter Description Reason Pro vider Source Aug 29, 2023 11:20 AM Outpatient Encounter ADMIN PAT ACTIVTIES (MASNONCT) IHE Encounter Template Text not used by [place] Plan of Treatment: Future Appointments (+ 6 months) and Future Tests (+/- 45 days) The Plan of Treatment section includes future care activities for the patient from all [place] treatmentfacilities. This section includes future appointments and future orders which are active, pending or scheduled. Future Appointments This section includes appointments that were scheduled to occur 6 months from the date of the Encounter, up to a maximum of 20 appointments. The data comes from all [place] treatment facilities. Appointment Date/Time Appointment Type Appointme nt Facility Name Sep 01, 2023 11:00 AM AMBULATORY - MEDICINE [facility] [place] [facility] Sep 04, 2023 01:00 PM AMBULATORY - MEDICINE [place] [facility] [facility] Sep 08, 2023 11:00 AM AM[place]ULATORY [place]ICINE [place] [facility] Sep 11, 2023 01:00 PM AMBULATORY - MEDICINE [place] [facility] [facility] Sep 16, 2023 11:00 AM AMBULATORY - [place]ICINE [place] [facility] [facility] Sep 29, 2023 11:00 AM AMBULATORY - MEDICINE [place] [facility] [facility] Oct 02, 2023 01:00 PM AMBULATORY - MEDICINE [place] [facility] Oct 06, 2023 11:00 AM AMBULATORY [place] MEDICINE [place] [facility] [facility] Oct 06, 2023 12:40 PM AM[facility]ULATORY [facility]ICINE [place] [facility] [place] [facility] Oct 09, 2023 01:00 PM AMBULATORY - MEDICINE [facility] [place] [facility] Oct 13, 2023 11:00 AM AMBULATORY - MEDICINE [facility] [place] [facility] Oct 16, 2023 01:00 PM AMBULATORY - MEDICINE [facility] [place] [facility] Oct 20, 2023 11:00 AM AMBULATORY - MEDICINE [place] [facility] [place] [facility] October 23, 2023 01:00 PM AMBULATORY - MEDICINE [facility] [place] [facility] October 27, 2023 11:00 AM AMBULATORY - MEDICINE [place] [facility] [place] [facility] November 03, 2023 11:00 AM AMBULATORY - MEDICINE [place] [facility] November 03, 2023 01:00 PM AMBULATORY - MEDICINE [place] [facility] November 06, 2023 01:00 PM AM[facility]ULATORY [facility] MEDICINE [place] [facility] [place] [facility] November 06, 2023 02:00 PM AMBULATORY - MEDICINE [place] [facility] November 10, 2023 11:00 AM AMBULATORY - MEDICINE [place] [facility] Social History: Smoking Status (Most current) and Tobacco Use (All prior to encounter date) This section includes the most current, and the historical, smoking and tobacco- related health factors from the [place] facility where the Encounter took place. Current Smoking Status This section includes the most current smoking, or tobacco-related health factor, from the [place] facility where the Encounter took place. Date/Time Current Smoking Status Comment Facil ity Apr 08, 2023 09:12 AM [facility]CO [facility] Tobacco Use History This section includes a history of the smoking, or tobacco-related health factors, that were collected on or before the date of the Encounter. The data comes from the [place] facility where the Encounter took place. Date/Time Smoking Status/Tobacco Use Comment F acjaved Aug 09, 2021 09:20 AM [facility]ACCO [facility] Encounter Notes: All associated encounter notes This section contains the clinical notes associated to the Encounter. Date/Time Encounter Note(s) Provider Source Aug 29, 2023 11:20 AM ADMINISTRATIVE NOTE: LOCAL TITLE: CCC: SCHEDULING ADMINISTRATION STANDARD TITLE: ADMINISTRATIVE NOTE DATE OF NOTE: AUG 29, 2023@11:20 ENTRY DATE: AUG 29, 2023@11:20:12 AUTHOR: SIDNEY MEDINA EXP COSIGNER: URGENCY: STATUS: COMPLETED CCC: SCHEDULING ADMINISTRATION Has ADDENDA Patient Name: Abhilash Garay Patient Primary Patient Primary Address: [address] [place] [id number] Patient : 1955 Patient Age: 68 Call Back Number: Caller/Recipient Relation to Patient: SELF Expects Callback: YES Administrative Note Reason: Consult Administrative Note Comments: called to request a consult for acupuncture through the [place] if they are able to get scheduled soon. If not is willing to go to a community provider. Please call back at [phone], if no answer please leave a detailed message as it is a secure voicemail. /oriana MEDINA [facility] AMS[facility] Signed: 08/29/2023 11:24 Receipt Acknowledged By: 08/29/2023 12:17 /yunior/ KASIA SMILEY LPN LICENSED PRACTICAL NURSE 08/29/2023 12:46 /yunior/ FERCHO MELLO RN REGISTERED NURSE 08/29/2023 ADDENDUM STATUS: COMPLETED See 05/08/2023 CC Acupuncture Consult notes. /oriana SMILEY LPN LICENSED PRACTICAL NURSE Signed: 08/29/2023 12:18 08/29/2023 ADDENDUM STATUS: COMPLETED Consult placed and awaiting PCP's signature. /yunior/ FERCHO MELLO RN REGISTERED NURSE Signed: 08/29/2023 12:45 SIDNEY MEDINA [place] [facility]
--- OUTSIDE RECORDS SUMMARY | 2024-06-29 18:49 | XMS_ITS | Encounter Summary ---
Author Name [facility] [place] [facility] [place] [facility] [place] Address [address] [place] [address] Care Team Providers Care Tree Inspector Name Role Phone ABDIRAHMAN LAKE Primary [...] BASIC FAMIL Y Jun 24, 2009 [id number] [phone] ABHILASH GARAY PATIENT ANTHEM BCBS [place] FEP PREFERRED PROVIDER ORGANIZAT ION (PPO) FEP BASIC FAM Jun 24, 2009 112 [id number] [phone] ABHILASH GARAY PATIENT ANTHEM [place]BS [place] F[place] PREFERRED PROVIDER ORGANIZAT ION (PPO) FEP BASIC FAM Jun 24, 2009 112 [id number] [phone] ABHILASH GARAY PATIENT [place] PREFERRED PROVIDER ORGANIZAT ION (PPO) FEP BASIC FAM Jun 24, 2009 112 [id number] [phone] ABHILASH GARAY PATIENT [place] PREFERRED PROVIDER ORGANIZAT ION (PPO) FEP BASIC FAM Jun 24, 2009 112 [id number] [phone] ABHILASH GARAY PATIENT [place]BS [place] FEP PREFERRED PROVIDER ORGANIZAT ION (PPO) BASIC FAMIL Y Jun 24, 2009 [id number] ABHILASH GARAY PATIENT [place] F[place] PREFERRED PROVIDER ORGANIZAT ION (PPO) BASIC FAMIL Y Jun 24, 2009 [id number] ABHILASH GARAY PATIENT [place] F[place] PREFERRED PROVIDER ORGANIZAT ION (PPO) BASIC FAMIL Y Jun 24, 2009 [id number] ABHILASH GARAY PATIENT [place] F[place] DENTAL DENTAL INSURANCE BASIC Jul 12, 2009 DENTAL [id number] ABHILASH GARAY PATIENT [place] PREFERRED PROVIDER ORGANIZAT ION (PPO) BASIC FAMIL Y Jun 24, 2009 112 [id number] [phone] ABHILASH GARAY PATIENT [employer] FEP ([id number]) PRESCRIPT ION FEPRX Jun 24, 2009 [id number] [phone] ABHILASH GARAY PATIENT [employer] FEP BCBS PRESCRIPT ION CAREM ARK FEPRX PLAN Nov 21, 2021 [id number] ABHILASH GARAY PATIENT [employer] FEPRX PLAN PRESCRIPT ION CAREM ARK FEPRX Nov 21, 2021 [id number] ABHILASH GARAY PATIENT [employer]-F EP BCBS PRESCRIPT ION FEP CAREM ARK Nov 21, 2021 [id number] ABHILASH GARAY PATIENT [employer]-F EP BCBS PRESCRIPT ION FEP Jun 23, 2010 [id number] RUBI GARAYNETH PATIENT MEDICARE (WN) MEDICARE () PART A Feb 22, 2020 PART A [id number] [phone] ABHILASH GARAY PATIENT MEDICARE (WN) MEDICARE () PART A Feb 22, 2020 PART A [id number] [id number] [phone] ABHILASH GARAY PATIENT MEDICARE (WNR) MEDICARE (M) PART A Feb 22, 2020 PART A [id number] ABHILASH GARAY PATIENT MEDICARE (WNR) MEDICARE (M) PART A Feb 22, 2020 PART A [id number] ABHILASH GARAY PATIENT MEDICARE (WNR) MEDICARE (M) PART A Feb 22, 2020 PART A [id number] ABHILASH GARAY PATIENT Selected Encounter This section includes the information on record at [place] for the Encounter. Date/Time Encounter Type Encounter Description Reason Provider Source Aug 25, 2023 11:00 AM EXERCISE CLASS HEALTH/WELLBEING SRVS ICD-10-CM Y93.42 Activity, PAT Yoder [place] IHE Encounter Template Text not used by [place] Assessments - Encounter Diagnoses This section includes the primary and secondary diagnoses documented for the Encounter. Date/Time Primary/Secondary Diagnosis Diagnosis Name Provider Source Aug 25, 2023 01:45 PM PRIMARY Activity, PEDRO Yoder [facility] [place] [facility] Plan of Treatment: Future Appointments (+ 6 [...] Appointment Type Appointme nt Facility Name Aug 28, 2023 01:00 PM AMBULATORY - MEDICINE [place] [facility] [facility] Sep 01, 2023 11:00 AM AMBULATORY [facility]INE [place] [facility] [place] [facility] Sep 04, 2023 01:00 PM AMBULATORY [facility]ICINE [place] [facility] [place] [facility] Sep 08, 2023 11:00 AM AMBULATORY [facility]ICINE [place] [facility] [place] [facility] Sep 11, 2023 01:00 PM AMBULATORY - MEDICINE [place] [facility] [place] [facility] Sep 16, 2023 11:00 AM AMBULATORY - MEDICINE [place] [facility] [place] [facility] Sep 29, 2023 11:00 AM AMBULATORY - MEDICINE [facility] [place] [facility] Oct 02, 2023 01:00 PM AMBULATORY - MEDICINE [facility] [place] [facility] Oct 06, 2023 11:00 AM AMBULATORY - MEDICINE [place] [facility] [place] [facility] Oct 06, 2023 12:40 PM AMBULATORY - MEDICINE [place] [facility] [place] [facility] Oct 09, 2023 01:00 PM AMBULATORY - MEDICINE [place] [facility] [place] [facility] Oct 13, 2023 11:00 AM AMBULATORY - MEDICINE [place] [facility] [place] [facility] Oct 16, 2023 01:00 PM AMBULATORY - MEDICINE [place] [facility] [place] [facility] Oct 20, 2023 11:00 AM AMBULATORY - MEDICINE [place] [facility] [place] [facility] October 23, 2023 01:00 PM AMBULATORY - MEDICINE [place] [facility] [place] [facility] October 27, 2023 11:00 AM AMBULATORY - MEDICINE [place] [facility] [place] [facility] November 03, 2023 11:00 AM AMBULATORY - MEDICINE [place] [facility] [place] [facility] November 03, 2023 01:00 PM AMBULATORY - MEDICINE [place] [facility] [place] [facility] November 06, 2023 01:00 PM AMBULATORY - MEDICINE [place] [facility] [place] [facility] November 06, 2023 02:00 PM AMBULATORY - MEDICINE [place] [facility] [place] [facility] Social History: Smoking Status (Most current) and [...] 08, 2023 09:12 AM VA-TOBACCO NEVER USED [place] [facility] Tobacco Use History This section includes a history of the smoking, or tobacco-related health factors, that were collected on or before the date of the Encounter. The data comes from the [place] facility where the Encounter took place. Date/Time Smoking Status/Tobacco Use Comment Gilberto boston Aug 09, 2021 09:20 AM [place]-TOBACCO NEVER USED [facility] Encounter Notes: All associated encounter notes This section contains the clinical notes associated to the Encounter. Date/Time Encounter Note(s) Provider Source Aug 25, 2023 12:30 PM RECREATIONAL THERA PY NOTE: LOCAL TITLE: YOGA WELLBEING STANDARD TITLE: RECREATIONAL THERAPY NOTE DATE OF NOTE: AUG 25, 2023@12:30 ENTRY DATE: AUG 25, 2023@13:46:21 AUTHOR: MARY KATE MOORE EXP COSIGNER: URGENCY: [...] triangle pose, wide leg forward bend variations, [place] 2, extended side angle pose, [place] 1, plank, cobra, locust, downward facing dog, wisdom pose, contralateral limb raises, head to knee pose, bridge, reclined twist, knees to chest; Systematic Relaxation; and Gratitude. Modifications were geared toward the 's individual needs and preferences. was one of seven participants in Group Yoga. He practiced all the postures offered, modifying according to his needs. He used a chair for support while learning new ways to explore postures. He practiced excellent self-care and used his breath as a tool to enhance his practice. He will return to class as his schedule allows. /yunior/ MARY KATE MOORE, [id number] Breaker Operator Signed: 08/25/2023 13:51 MARY KATE MOORE [facility]
--- OUTSIDE RECORDS SUMMARY | 2024-06-29 18:49 | XMS_ITS | Encounter Summary ---
Author Name [facility] [place] Address [address] [place] [address] Care Team Providers Care Nursing Assistant Name Role Phone ABDIRAHMAN LAKE Primary Care [...] BASIC FAMIL Y Jun 24, 2009 [id number] [phone] ABHILASH GARAY PATIENT ANTHEM BCBS [place] FEP PREFERRED PROVIDER ORGANIZAT ION (PPO) FEP BASIC FAM Jun 24, 2009 [id number] [phone] ABHILASH GARAY PATIENT ANTHEM BCBS [place] FEP PREFERRED PROVIDER ORGANIZAT ION (PPO) FEP BASIC FAM Jun 24, 2009 112 [id number] [phone] ABHILASH GARAY PATIENT [place] PREFERRED PROVIDER ORGANIZAT ION (PPO) FEP BASIC FAM Jun 24, 2009 112 [id number] [phone] ABHILASH GARAY PATIENT [place] PREFERRED PROVIDER ORGANIZAT ION (PPO) FEP BASIC FAM Jun 24, 2009 [id number] [phone] ABHILASH GARAY PATIENT [place] PREFERRED PROVIDER ORGANIZAT ION (PPO) BASIC FAMIL Y Jun 24, 2009 [id number] ABHILASH GARAY PATIENT [place] PREFERRED PROVIDER ORGANIZAT ION (PPO) BASIC FAMIL Y Jun 24, 2009 112 [id number] [phone] ABHILASH GARAY PATIENT [place] FEP PREFERRED PROVIDER ORGANIZAT ION (PPO) BASIC FAMIL Y Jun 24, 2009 [id number] ABHILASH GARAY PATIENT [place] F[place] DENTAL DENTAL INSURANCE BASIC Jul 12, 2009 DENTAL [id number] ABHILASH GARAY PATIENT [place] F[place] PREFERRED PROVIDER ORGANIZAT ION (PPO) BASIC FAMIL Y Jun 24, 2009 [id number] ABHILASH GARAY PATIENT [employer] FEP ([id number]) PRESCRIPT ION FEPRX Jun 24, 2009 [id number] [phone] ABHILASH GARAY PATIENT [place] FEP BCBS PRESCRIPT ION CAREM ARK FEPRX PLAN Nov 21, 2021 [id number] ABHILASH GARAY PATIENT [employer] FEPRX PLAN PRESCRIPT ION CAREM ARK FEPRX Nov 21, 2021 [id number] ABHILASH GARAY PATIENT [employer]-F EP BCBS PRESCRIPT ION FEP CAREM ARK Nov 21, 2021 [id number] ABHILASH GARAY PATIENT [employer]-F EP BCBS PRESCRIPT ION FEP Jun 23, 2010 [id number] ABHILASH GARAY PATIENT MEDICARE (WN) MEDICARE () PART A Feb 22, 2020 PART A [id number] [phone] ABHILASH GARAY PATIENT MEDICARE ([facility]) MEDICARE () PART A Feb 22, 2020 PART A [id number] ABHILASH GARAY PATIENT MEDICARE (WNR) MEDICARE (M) PART A Feb 22, 2020 PART A [id number] ABHILASH GARAY PATIENT MEDICARE (WNR) MEDICARE (M) PART A Feb 22, 2020 PART A [id number] ABHILASH GARAY PATIENT MEDICARE (WNR) MEDICARE (M) PART A Feb 22, 2020 PART A [id number] ABHILASH GARAY PATIENT Selected Encounter This section includes the information on record at [place] for the Encounter. Date/Time Encounter Type Encounter Description Reason Pro vider Source Aug 22, 2023 12:00 PM Outpatient Encounter COMMUNITY CARE [...] Appointment Type Appointme nt Facility Name Aug 25, 2023 11:00 AM AMBULATORY - [place]ICINE [place] [facility] Aug 28, 2023 01:00 PM AMBULATORY [place]ICINE [place] [facility] Sep 01, 2023 11:00 AM AMBULATORY [place]ICINE [place] [facility] Sep 04, 2023 01:00 PM AMBULATORY [place]ICINE [place] [facility] Sep 08, 2023 11:00 AM AMBULATORY [place]ICINE [place] [facility] Sep 11, 2023 01:00 PM AMBULATORY [place]ICINE [place] [facility] Sep 16, 2023 11:00 AM AMBULATORY [place]ICINE [place] [facility] Sep 29, 2023 11:00 AM AMBULATORY [place]ICINE [place] [facility] Oct 02, 2023 01:00 PM [facility] [place] [facility] [place] [facility] [place] [facility] Oct 06, 2023 11:00 AM AM[facility]ULATORY [facility]ICINE [facility] [place] [facility] Oct 06, 2023 12:40 PM AMBULATORY - MEDICINE [facility] [place] [facility] Oct 09, 2023 01:00 PM AMBULATORY - MEDICINE [place] [facility] [place] [facility] Oct 13, 2023 11:00 AM AMBULATORY - [facility]ICINE [place] [facility] [place] [facility] Oct 16, 2023 01:00 PM AMBULATORY - [facility]ICINE [place] [facility] [place] [facility] Oct 20, 2023 11:00 AM AMBULATORY [facility]ICINE [place] [facility] [place] [facility] October 23, 2023 01:00 PM AMBULATORY - MEDICINE [place] [facility] [place] [facility] October 27, 2023 11:00 AM AMBULATORY - MEDICINE [place] [facility] [place] [facility] November 03, 2023 11:00 AM AMBULATORY [place]ICINE [place] [facility] November 03, 2023 01:00 PM AM[place]ULATORY [place]INE [place] [facility] November 06, 2023 01:00 PM AMBULATORY [place]ICINE [place] [facility] Social History: Smoking Status (Most current) [...] 08, 2023 09:12 AM [facility] Tobacco Use History This section includes a history of the smoking, or tobacco-related health factors, that were collected on or before the date of the Encounter. The data comes from the [place] facility where the Encounter took place. Date/Time Smoking Status/Tobacco Use Comment F darvin Aug 09, 2021 09:20 AM VA-TOBACCO [facility] Encounter Notes: All associated encounter notes This section contains the clinical notes associated to the Encounter. Date/Time Encounter Note(s) Provider Source Aug 22, 2023 12:00 PM NONVA CONSULT: LOCAL TITLE: COMMUNITY CARE-CONSULT RESULT NOTE STANDARD TITLE: NONVA CONSULT DATE OF NOTE: AUG 22, 2023@12:00 ENTRY DATE: SEP 03, 2023@10:08:54 AUTHOR: MARY KATE GOODSON COSIGNER: URGENCY: STATUS: COMPLETED VistA Imaging - Scanned Document SCANNED DOCUMENT SIGNATURE NOT REQUIRED Electronically Filed: 09/03/2023 by: MARY KATE GOODSON GEOMETRY TUTOR MARY KATE GOODSON [facility]
--- OUTSIDE RECORDS SUMMARY | 2024-06-29 18:49 | XMS_ITS | Encounter Summary ---
Author Name [facility] [place] [facility] [place] Address [address] [place] [address] Care Team Providers Care Auto Research Engineer Name Role Phone ABDIRAHMAN [place] Primary Care [...] BASIC FAMIL Y Jun 24, 2009 [id number] [phone] ABHILASH GARAY PATIENT ANTHEM [place] F[place] PREFERRED PROVIDER ORGANIZAT ION (PPO) FEP BASIC FAM Jun 24, 2009 112 [id number] [phone] ABHILASH GARAY PATIENT ANTHEM [place] F[place] PREFERRED PROVIDER ORGANIZAT ION (PPO) FEP BASIC FAM Jun 24, 2009 112 [id number] [phone] ABHILASH GARAY PATIENT [place] PREFERRED PROVIDER ORGANIZAT ION (PPO) FEP BASIC FAM Jun 24, 2009 112 [id number] [phone] ABHILASH GARAY PATIENT [place] PREFERRED PROVIDER ORGANIZAT ION (PPO) FEP BASIC FAM Jun 24, 2009 112 [id number] [phone] RUBI GARAYNETH PATIENT [place] PREFERRED PROVIDER ORGANIZAT ION (PPO) BASIC FAMIL Y Jun 24, 2009 112 [id number] ABHILASH GARAY PATIENT [place] PREFERRED PROVIDER ORGANIZAT ION (PPO) BASIC FAMIL Y Jun 24, 2009 112 [id number] ABHILASH GARAY PATIENT [place] PREFERRED PROVIDER ORGANIZAT ION (PPO) BASIC FAMIL Y Jun 24, 2009 112 [id number] ABHILASH GARAY PATIENT [place] FEP DENTAL DENTAL INSURANCE BASIC Jul 12, 2009 DENTAL [id number] ABHILASH GARAY PATIENT [place] PREFERRED PROVIDER ORGANIZAT ION (PPO) BASIC FAMIL Y Jun 24, 2009 112 [id number] [phone] ABHILASH GARAY PATIENT [place] FEP ([id number]) PRESCRIPT ION FEPRX Jun 24, 2009 [id number] [phone] ABHILASH GARAY PATIENT [place] FEP BCBS PRESCRIPT ION [place] FEPRX PLAN Nov 21, 2021 [id number] ABHILASH GARAY PATIENT [place] FEPRX PLAN PRESCRIPT ION CAREM ARK FEPRX Nov 21, 2021 [id number] ABHILASH GARAY PATIENT [place] BCBS PRESCRIPT ION FEP CAREM ARK Nov 21, 2021 [id number] ABHILASH GARAY PATIENT [place] BCBS PRESCRIPT ION FEP Jun 23, 2010 [id number] DEJAHDANIKARUBI ACEVESNETH PATIENT MEDICARE (WNR) MEDICARE (M) PART A Feb 22, 2020 PART A [id number] RUBI GARAYNETH PATIENT MEDICARE (WN) MEDICARE (M) PART A Feb 22, 2020 PART A [id number] ABHILASH GARAY PATIENT MEDICARE (WNR) MEDICARE (M) PART A Feb 22, 2020 PART A [id number] ABHILASH GARAY PATIENT MEDICARE (WNR) MEDICARE (M) PART A Feb 22, 2020 PART A [id number] ABHILASH GARAY PATIENT MEDICARE (WNR) MEDICARE (M) PART A Feb 22, 2020 PART A [id number] ABHILASH GARAY PATIENT Selected Encounter This section includes the information on record at [place] for the Encounter. Date/Time Encounter Type Encounter Description Reason Provider Source Aug 22, 2023 08:00 AM OFFICE O/P EST LOW 20 MIN PODIATRY ICD-10-CM L60.0 Ingrowing nail THOMPSON CARRANZA Fran Encounter Template Text not used by [place] Assessments - Encounter Diagnoses This section includes the primary and secondary diagnoses documented for the Encounter. Date/Time Primary/Secondary Diagnosis Diagnosis Name Provider Source Sep 09, 2023 10:12 AM PRIMARY Ingrowing nail THOMPSON CARRANZA MISHA Sep 09, 2023 10:12 AM SECONDARY Pain in left toe(s) THOMPSON CARRANZA Sep 09, 2023 10:12 AM SECONDARY Pain in right toe(s) THOMPSON CARRANZA Sep 09, 2023 10:12 AM SECONDARY Peripheral vascular disease, unspecified THOMPSON CARRANZA Plan of Treatment: Future Appointments (+ 6 [...] 25, 2023 11:00 AM AMBULATORY - MEDICINE [place] [facility] [place] [facility] Aug 28, 2023 01:00 PM AMBULATORY - MEDICINE [place] [facility] [place] [facility] Sep 01, 2023 11:00 AM AMBULATORY - MEDICINE [place] [facility] [place] [facility] Sep 04, 2023 01:00 PM AMBULATORY - MEDICINE [facility] [place] [facility] Sep 08, 2023 11:00 AM AMBULATORY - MEDICINE [place] [facility] [place] [facility] Sep 11, 2023 01:00 PM AMBULATORY - MEDICINE [place] [facility] [place] [facility] Sep 16, 2023 11:00 AM AMBULATORY - MEDICINE [place] [facility] [place] [facility] Sep 29, 2023 11:00 AM AMBULATORY - MEDICINE [facility] [place] [facility] Oct 02, 2023 01:00 PM AMBULATORY - MEDICINE [facility] [place] [facility] Oct 06, 2023 11:00 AM AMBULATORY - MEDICINE [facility] [place] [facility] Oct 06, 2023 12:40 PM AMBULATORY - MEDICINE [facility] [place] [facility] Oct 09, 2023 01:00 PM AMBULATORY - MEDICINE [facility] [place] [facility] Oct 13, 2023 11:00 AM AMBULATORY - MEDICINE [facility] [place] [facility] Oct 16, 2023 01:00 PM AMBULATORY - MEDICINE [facility] [place] [facility] Oct 20, 2023 11:00 AM AMBULATORY - MEDICINE [facility] [place] [facility] October 23, 2023 01:00 PM AMBULATORY - MEDICINE [facility] [place] [facility] October 27, 2023 11:00 AM AMBULATORY - MEDICINE [facility] [place] [facility] November 03, 2023 11:00 AM AMBULATORY - MEDICINE [facility] [place] [facility] November 03, 2023 01:00 PM AMBULATORY - MEDICINE [facility] [place] [facility] November 06, 2023 01:00 PM AMBULATORY - MEDICINE [facility] [place] [facility] Social History: Smoking Status (Most current) and [...] Date/Time Current Smoking Status Comment Facil ity Aug 18, 2020 10:00 AM [place]-TOBACCO NEVER USED [facility] Tobacco Use History This section includes a history of the smoking, or tobacco-related health factors, that were collected on or before the date of the Encounter. The data comes from the [place] facility where the Encounter took place. Date/Time Smoking Status/Tobacco Use Comment F acility Dec 15, 2018 12:14 PM [place]-TOBACCO NEVER USED [facility] Jun 11, 2017 04:15 PM LIFETIME NON-TOBACCO USER [facility] Jan 01, 2016 11:12 AM LIFETIME NON-TOBACCO USER [facility] Jan 16, 2005 08:54 AM LIFETIME NON-SMOKER [facility] Nov 29, 2003 08:05 AM LIFETIME NON-SMOKER [facility] Jan 07, 2001 08:33 AM LIFETIME NON-SMOKER [facility] Encounter Notes: All associated encounter notes This section contains the clinical notes associated to the Encounter. Date/Time Encounter Note(s) Provider Source Aug 22, 2023 07:16 AM PODIATRY NOTE: LOCAL TITLE: PODIATRY NOTE STANDARD TITLE: PODIATRY NOTE DATE OF NOTE: AUG 22, 2023@07:16 ENTRY DATE: AUG 22, 2023@07:16:18 AUTHOR: THOMPSON CARRANZA COSIGNER: URGENCY: STATUS: COMPLETED Is [place] interested in receiving the COVID-19 vaccine as it becomes available? has declined the Covid-19 vaccine at this time. LAST SEEN FOR TREATMENT: 03/07/2023 S: Pt. is a 68yo alert WDWN CAUC MALE who is seen for continued podiatric care FOR TREATMENT of painful, thickened, severely incurvated nails. There has been NAIL pain for several days which is intermittent with periods of exacerbation & remission, is of an aching nature and is exacerbated with shoes & increased activity. There have been no recent changes in the patient's medical condition or medications upon questioning today. Patient is at risk due to the presence of PVD. Pain level is 2-3/10 prior to treatment and 0/10 after with pain initiated several days prior to visit on a daily basis and is alleviated by shoe removal and timely podiatric care in an attempt to avoid pain and infection. *DENIES ANY RECENT CHANGES IN MEDS UPON QUESTIONING TODAY- SEE RECONCILIATION PERFORMED THIS DATE BELOW- *DENIES TOBACCO O: Exam reveals skin color & text to be WNL. Temp is diminished warm to cool proximal to distal. There is absence of hair noted. Nails are thickened, yellow- brown discolored and display crumbling, flakiness and sub-ungual debris with rubor in the medial & lateral nail grooves and pain on palpation. Affected nails are as follows: 2-3-4 bilat. There are no other gross LE changes in status noted this date. PMH: Active problems - Computerized Problem List is the source for the following: *NOTE: REVIEWED ABOVE NOTING NO CHANGES SINCE PREVIOUS VISIT: *SEE PROBLEM LIST TEMPLATE FOR COMPLETE LIST NEEDED. HEIGHT: 74 in [188.0 cm] (05/23/2016 14:22) WEIGHT: 233.8 lb [106.3 kg] (06/06/2016 14:34) VASCULAR: EXAM REVEALS DP & PT pulses to be absent non-palpable bilateral. CFT <3 sec x 10. There is no edema and there are no varices noted. MUSCULOSKELETAL: Exam reveals muscle strength and tone to be equal & symmetrical bilaterally & WNL for an individual of this age and present physical-medical condition. There is pain free ROM at all joints distal to and including the ankle. HYPERKERATOSIS OF BOTH HEELS NEUROLOGICAL: Exam reveals S/D, vibratory, light touch & proprioception sensations to be equal & symmetrical bilaterally & WNL for an individual of this age and present physical-medical status. Protective sensation utilizing a Rothsay-Yojana lOg monofilament is 10/10 bilateral. Exams are reviewed and noted to be unchanged since previous visit & determined to be non-contributory to the cc . A: Clinical Impression: Painful onychocryptic dystrophic nails & THERE IS NO painful HM AT THIS TIME 5th RT digit & HYPERKERATOSIS HEELS BILATERAL as noted above in the presence of PVD. Class findings have been met in a high risk individual and the systemic condition has resulted in circulatory impairment & areas of desensitization. P: Treatment consists of debridement-reduction of all nails via manual and electric means with excision of offending nail borders and thinning of nail plates to the point of immanent bleeding. All care rendered without complications & pt. progressing well after podiatric care this date & will be scheduled for periodic care in an attempt to prevent future complications due to the underlying medical conditions. Tx. By a non-professional could be extremely hazardous to the patient's well-being due to the underlying medical condition. RTC 24 WEEKS. *DISCUSSED NEW PROTOCOLS AND CALLED [facility] FOR RESCHEDULING TODAY I DISCUSSED THE FINDINGS & PLAN WITH PATIENT (UNCHANGED SINCE PREVIOUS VISIT) & PATIENT AGREES AND UNDERSTANDS PLAN NEW CONCERN: PROXIMAL RT HALLUX NAILPLATE SPLIT ANAD NAIL GROWING DORSALLY BUT WAS TRIMMED ANAD HOPE IT WILL NOT RECUR BUT ADVISED THE USE OF A NAIL FILE TO KEEP THINNED DOWN IF NECESSARY OR TO CALL FOR EARLIER APPT. Medication Reconciliation: PERFORMED TODAY - SEE BELOW. Outpatient: Has the patient been taking medications as documented in the EMLR? YES: The patient has been taking medications as documented in the EMLR. Essential Medication List for Review used to complete this medication reconciliation. INCLUDED IN THIS LIST: Alphabetical list of active outpatient prescriptions dispensed from this [facility] (local) and dispensed from another [place] or DoD facility (remote) as well as inpatient orders (local, pending and active), local clinic medications, locally documented non-VA medications, and local prescriptions that have or been discontinued in the past 90 days. - All changes in medications, including all non-VA/Herbal/OTC medications were entered into CPRS. - If there were any medications the patient should no longer take, they were discontinued. - The patient/caregiver was instructed to update this list, discard old lists, and take this list to the next appointment, whether with a VA or non-VA provider. JLV Link Data on this list may not be complete. Please check JLV. Allergies/ADRs (Tool #5) FACILITY ALLERGY/ADR -------- [facility] [place] NO KNOWN ALLERGIES [place] [facility] [place] [facility] No Known Allergies [facility] [place] NO KNOWN ALLERGIES Med Recon NoGlossary (Tool #1) INCLUDED IN THIS LIST: Alphabetical list of active outpatient prescriptions dispensed from this [facility] (local) and dispensed from another [place] or DoD facility (remote) as well as inpatient orders (local pending and active), local clinic medications, locally documented non-VA medications, and local prescriptions that have or been discontinued in the past 90 days. Non-VA Meds Last Documented On: Mar 11, 2022 NOTE The display of VA prescriptions dispensed from another [place] or [facility] facility (remote) is limited to active outpatient prescription entries matched to National Drug File at the originating site and may not include some items such as investigational drugs, compounds, etc. NOT INCLUDED IN THIS LIST: Medications self-entered by the patient into personal health records (i.e. [employer]) are NOT included in this list. Non-VA medications documented outside this [place], remote inpatient orders (regardless of status) and remote clinic medications are NOT included in this list. The patient and provider must always discuss medications the patient is taking, regardless of where the medication was dispensed or obtained. OUTPT ALLOPURINOL 100MG TAB (Status = Active) TAKE ONE TABLET BY MOUTH ONCE DAILY FOR GOUT Rx# [id number] Last Released: 05/26/23 Qty/Days Supply: Rx Expiration Date: 05/22/24 Refills Remainin OUTPT ATORVASTATIN CALCIUM 10MG TAB (Status = Active) TAKE ONE TABLET BY MOUTH AT BEDTIME FOR HIGH CHOLESTEROL Rx# [id number] Last Released: 06/24/23 Qty/Days Supply: Rx Expiration Date: 04/08/24 Refills Remainin Indication: FOR HIGH CHOLESTEROL OUTPT CICLOPIROX OLAMINE 0.77% CREAM (Status = ) APPLY A SMALL AMOUNT TOPICALLY TWICE DAILY FOR 4 WEEKS FOR FUNGAL INFECTION OF THE SKIN -APPLY EVERY MORNING AND PM TO TOPS SIDES BOTTOMS OF LEFT FOOT AND BETWEEN TOES Rx# [id number] Last Released: 01/16/23 Qty/Days Supply: Rx Expiration Date: 08/06/23 Refills Remainin Indication: FOR FUNGAL INFECTION OF THE SKIN OUTPT CLOBETASOL PROPIONATE 0.05% CREAM (Status = Active) APPLY A SMALL AMOUNT TOPICALLY TWICE DAILY TO RASH ON BUTTOCKS AND LEFT KNEE Rx# [id number] Last Released: 08/07/23 Qty/Days Supply: 120/30 Rx Expiration Date: 08/31/23 Refills Remainin OUTPT DILTIAZEM (EQV-CARDIZEM) 120MG 24HR CAP (Status = Active) TAKE ONE CAPSULE BY MOUTH ONCE DAILY FOR HIGH BLOOD PRESSURE Rx# [id number] Last Released: 08/01/23 Qty/Days Supply: 90/90 Rx Expiration Date: 04/08/24 Refills Remainin Indication: FOR HIGH BLOOD PRESSURE Non-VA FISH OIL 500MG DHA/EPA CAP,ORAL TAKE BY MOUTH DAILY OUTPT KETOCONAZOLE 2% CREAM (Status = ) APPLY A SMALL AMOUNT TOPICALLY TWICE DAILY FOR FUNGAL INFECTION Rx# [id number] Last Released: 01/10/23 Qty/Days Supply: 60/30 Rx Expiration Date: 08/03/23 Refills Remainin OUTPT LEVOTHYROXINE NA (SYNTHROID) 137MCG TAB (Status = Active) TAKE ONE TABLET BY MOUTH EVERY MORNING 30 MINUTES BEFORE BREAKFAST FOR THYROID TAKE ON AN EMPTY STOMACH WITH A FULL GLASS OF WATER Rx# [id number] Last Released: 08/21/23 Qty/Days Supply: 60/60 Rx Expiration Date: 08/21/24 Refills Remainin Indication: FOR THYROID OUTPT LEVOTHYROXINE NA (SYNTHROID) 150MCG TAB (Status = Discontinued) TAKE ONE TABLET BY MOUTH EVERY MORNING 30 MINUTES BEFORE BREAKFAST TAKE ON AN EMPTY STOMACH WITH A FULL GLASS OF WATER Rx# [id number] Last Released: 07/10/23 Qty/Days Supply: 90/90 Rx Expiration Date: 07/09/24 Refills Remainin Indication: FOR THYROID OUTPT LEVOTHYROXINE NA (SYNTHROID) 175MCG TAB (Status = Discontinued) TAKE ONE TABLET BY MOUTH EVERY MORNING 30 MINUTES BEFORE BREAKFAST FOR THYROID TAKE ON AN EMPTY STOMACH WITH A FULL GLASS OF WATER Rx# [id number] Last Released: 04/30/23 Qty/Days Supply: 90/90 Rx Expiration Date: 04/08/24 Refills Remainin Indication: FOR THYROID OUTPT METOPROLOL SUCCINATE 50MG SA TAB (Status = Active) TAKE ONE TABLET BY MOUTH ONCE DAILY FOR BLOOD PRESSURE/HEART Rx# [id number] Last Released: 05/23/23 Qty/Days Supply: Rx Expiration Date: 04/08/24 Refills Remainin Indication: ATRIAL FIBRILLATION Non-VA MULTIVITAMIN/MINERALS CAP/TAB TAKE ONE TABLET BY MOUTH EVERY DAY for the eyes Non-VA NIACIN TAB TAKE BY MOUTH OUTPT POTASSIUM CITRATE 10MEQ SA TAB (Status = ) TAKE TWO TABLETS BY MOUTH TWICE DAILY Rx# [id number] Last Released: 05/23/23 Qty/Days Supply: Rx Expiration Date: 06/13/23 Refills Remainin Indication: KIDNEY STONES OUTPT RIVAROXABAN 20MG TAB (Status = Active) TAKE ONE TABLET BY MOUTH ONCE DAILY TO PREVENT BLOOD CLOTS WITH FOOD Rx# [id number] Last Released: 07/09/23 Qty/Days Supply: Rx Expiration Date: 01/11/24 Refills Remainin Indication: TO PREVENT BLOOD CLOTS SUPPLIES /yunior/ THOMPSON CARRANZA DPM COMMERCIAL [employer]ER Signed: 08/22/2023 08:27 THOMPSON CARRANZA [facility]
--- OUTSIDE RECORDS SUMMARY | 2024-06-29 18:50 | XMS_ITS | Encounter Summary ---
Author Name [facility] [place] [facility] [place] Address [address] [place] [address] Care Team Providers Care Underwear Hemmer Name Role Phone ABDIRAHMAN [place] Primary Care [...] BASIC FAMIL Y Jun 24, 2009 [id number] [phone] ABHILASH GARAY PATIENT ANTHEM [place]BS [place] F[place] PREFERRED PROVIDER ORGANIZAT ION (PPO) FEP BASIC FAM Jun 24, 2009 112 [id number] [phone] ABHILASH GARAY PATIENT ANTHEM BCBS [place] F[place] PREFERRED PROVIDER ORGANIZAT ION (PPO) FEP BASIC FAM Jun 24, 2009 112 [id number] [phone] ABHILASH GARAY PATIENT [place] PREFERRED PROVIDER ORGANIZAT ION (PPO) FEP BASIC FAM Jun 24, 2009 112 [id number] [phone] ABHILASH GARAY PATIENT [place]BS [place] PREFERRED PROVIDER ORGANIZAT ION (PPO) FEP BASIC FAM Jun 24, 2009 112 [id number] [phone] ABHILASH GARAY PATIENT BCBS [place] FEP PREFERRED PROVIDER ORGANIZAT ION (PPO) BASIC FAMIL Y Jun 24, 2009 [id number] ABHILASH GARAY PATIENT [place] PREFERRED PROVIDER ORGANIZAT ION (PPO) BASIC FAMIL Y Jun 24, 2009 112 [id number] [phone] ABHILASH GARAY PATIENT [place] FEP PREFERRED PROVIDER ORGANIZAT ION (PPO) BASIC FAMIL Y Jun 24, 2009 112 [id number] [phone] ABHILASH GARAY PATIENT [place] DENTAL DENTAL INSURANCE BASIC Jul 12, 2009 DENTAL [id number] ABHILASH GARAY PATIENT [place] F[place] PREFERRED PROVIDER ORGANIZAT ION (PPO) BASIC FAMIL Y Jun 24, 2009 [id number] ABHILASH GARAY PATIENT [place] FEP ([id number]) PRESCRIPT ION FEPRX Jun 24, 2009 [id number] [phone] ABHILASH GARAY PATIENT [place] FEP BCBS PRESCRIPT ION CAREM ARK FEPRX PLAN Nov 21, 2021 [id number] ABHILASH GARAY PATIENT [place] FEPRX PLAN PRESCRIPT ION CAREM ARK FEPRX Nov 21, 2021 [id number] ABHILASH GARAY PATIENT [place]-F EP BCBS PRESCRIPT ION FEP CAREM ARK Nov 21, 2021 [id number] ABHILASH GARAY PATIENT [place]-F EP BCBS PRESCRIPT ION FEP Jun 23, 2010 [id number] ABHILASH GARAY PATIENT MEDICARE (WN) MEDICARE () PART A Feb 22, 2020 PART A [id number] ABHILASH GARAY PATIENT MEDICARE ([facility]) MEDICARE () PART A Feb 22, 2020 PART A [id number] [phone] ABHILASH GARAY PATIENT MEDICARE (WNR) MEDICARE (M) PART A Feb 22, 2020 PART A [id number] ABHILASH GARAY PATIENT MEDICARE (WNR) MEDICARE (M) PART A Feb 22, 2020 PART A [id number] ABHILASH GARAY PATIENT MEDICARE (WNR) MEDICARE (M) PART A Feb 22, 2020 PART A [id number] ABHILASH GARAY PATIENT Selected Encounter This section includes the information on record at [place] for the Encounter. Date/Time Encounter Type Encounter Description Reason Pro vider Source Jul 07, 2023 12:00 AM Outpatient Encounter EVENT (HISTORICAL) IHE Encounter Template Text not used by [place] Plan of Treatment: Future Appointments (+ 6 months) and Future Tests (+/- 45 days) The Plan of Treatment section includes future care activities for the patient [facility] [place] [facility] This section includes future appointments and future orders which are active, pending or scheduled. Future Appointments This section includes appointments that were scheduled to occur 6 months from the date of the Encounter, up to a maximum of 20 appointments. The data comes from all [place] treatment facilities. Appointment Date/Time Appointment Type Appointme nt Facility Name Jul 10, 2023 01:00 PM [place] [facility] Jul 14, 2023 11:00 AM [place] [facility] Jul 17, 2023 01:00 PM [place] [facility] Jul 24, 2023 01:00 PM [place] [facility] Jul 28, 2023 11:00 AM [place] [facility] Jul 31, 2023 01:00 PM [place] [facility] Aug 01, 2023 11:00 AM [place] [facility] Aug 04, 2023 11:00 AM [place] [facility] Aug 07, 2023 01:00 PM [place] [facility] Aug 12, 2023 11:00 AM AM[place]ORY [place]INE [place] [facility] Aug 14, 2023 01:00 PM AM[place]ORY [place]INE [place] [facility] Aug 18, 2023 11:00 AM AM[place] [facility] Aug 21, 2023 01:00 PM AM[place]ORY [place]INE [place] [facility] Aug 22, 2023 08:00 AM [facility] Aug 25, 2023 11:00 AM AM[place]ULATORY [place]INE [place] [facility] Aug 28, 2023 01:00 PM AMBULATORY - MEDICINE [place] [facility] Sep 01, 2023 11:00 AM AMBULATORY - MEDICINE [place] [facility] Sep 04, 2023 01:00 PM AMBULATORY - [place]ICINE [place] [facility] Sep 08, 2023 11:00 AM AM[place]ULATORY - MEDICINE [place] [facility] [place] [facility] Sep 11, 2023 01:00 PM AMBULATORY - [place]ICINE [place] [facility] Social History: Smoking Status (Most current) and Tobacco Use (All prior to encounter date) This section includes the most current, and the historical, smoking and tobacco- related health factors from the [place] facility where the Encounter took place. Current Smoking Status This section includes the most current smoking, or tobacco-related health factor, from the [place] facility where the Encounter took place. Date/Time Current Smoking Status Comment Facil ity Apr 08, 2023 09:12 AM [facility]ACCO [facility] [place] [facility] Tobacco Use History This section includes a history of the smoking, or tobacco-related health factors, that were collected on or before the date of the Encounter. The data comes from the [place] facility where the Encounter took place. Date/Time Smoking Status/Tobacco Use Comment F acjaved Aug 09, 2021 09:20 AM [facility] Encounter Notes: All associated encounter notes This section contains the clinical notes associated to the Encounter. Date/Time Encounter Note(s) Provider Source Jul 07, 2023 12:00 AM NURSING ADMINISTRATIVE NOTE: LOCAL TITLE: NON-VA PRESCRIPTION STANDARD TITLE: NURSING ADMINISTRATIVE NOTE DATE OF NOTE: JUL 07, 2023 ENTRY DATE: JUL 17, 2023@08:07:33 AUTHOR: JORDAN TANNER MA EXP COSIGNER: URGENCY: STATUS: COMPLETED VistA Imaging - Scanned Document SCANNED DOCUMENT SIGNATURE NOT REQUIRED Electronically Filed: 07/17/2023 by: JORDAN TANNER ASBESTOS CLOTH INSPECTOR JORDAN TANNER [place] [facility]
--- OUTSIDE RECORDS SUMMARY | 2024-06-29 18:50 | XMS_ITS | Encounter Summary ---
Author Name [facility] [place] Address [address] [place] [address] Care Team Providers Care Director Employment Name Role Phone ABDIR[place] Primary Care [...] BASIC FAMIL Y Jun 24, 2009 112 [id number] [phone] ABHILASH GARAY PATIENT ANTHEM BCBS [place] FEP PREFERRED PROVIDER ORGANIZAT ION (PPO) FEP BASIC FAM Jun 24, 2009 112 [id number] [phone] ABHILASH GARAY PATIENT AN[place]M BCBS [place] F[place] PREFERRED PROVIDER ORGANIZAT ION (PPO) FEP BASIC FAM Jun 24, 2009 112 [id number] [phone] ABHILASH GARAY PATIENT [place] PREFERRED PROVIDER ORGANIZAT ION (PPO) FEP BASIC FAM Jun 24, 2009 112 [id number] [phone] ABHILASH GARAY PATIENT [place] PREFERRED PROVIDER ORGANIZAT ION (PPO) FEP BASIC FAM Jun 24, 2009 112 [id number] [phone] ABHILASH GARAY PATIENT [place]BS [place] F[place] PREFERRED PROVIDER ORGANIZAT ION (PPO) BASIC FAMIL Y Jun 24, 2009 [id number] ABHILASH GARAY PATIENT [place] PREFERRED PROVIDER ORGANIZAT ION (PPO) BASIC FAMIL Y Jun 24, 2009 [id number] ABHILASH GARAY PATIENT [place] F[place] PREFERRED PROVIDER ORGANIZAT ION (PPO) BASIC FAMIL Y Jun 24, 2009 112 [id number] [phone] ABHILASH GARAY PATIENT [place] F[place] DENTAL DENTAL INSURANCE BASIC Jul 12, 2009 DENTAL [id number] ABHILASH GARAY PATIENT [place] F[place] PREFERRED PROVIDER ORGANIZAT ION (PPO) BASIC FAMIL Y Jun 24, 2009 [id number] [phone] ABHILASH GARAY PATIENT [place] FEP ([id number]) PRESCRIPT ION FEPRX Jun 24, 2009 [id number] [phone] ABHILASH GARAY PATIENT [place] FEP BCBS PRESCRIPT ION CAREM ARK FEPRX PLAN Nov 21, 2021 [id number] ABHILASH GARAY PATIENT [place] FEPRX PLAN PRESCRIPT ION CAREM ARK FEPRX Nov 21, 2021 [id number] BAHILASH GARAY PATIENT [place]-F EP BCBS PRESCRIPT ION FEP CAREM ARK Nov 21, 2021 [id number] ABHILASH GARAY PATIENT [place]-F EP BCBS PRESCRIPT ION FEP Jun 23, 2010 [id number] ABHILASH GARAY PATIENT MEDICARE (WN) MEDICARE () PART A Feb 22, 2020 PART A [id number] ABHILASH GARAY PATIENT MEDICARE [facility]) MEDICARE () PART A Feb 22, 2020 PART A [id number] [phone] ABHILASH GARAY PATIENT MEDICARE (WNR) MEDICARE (M) PART A Feb 22, 2020 PART A [id number] ABHILASH GARAY PATIENT MEDICARE (WNR) MEDICARE (M) PART A Feb 22, 2020 PART A [id number] ABHILASH GARAY PATIENT MEDICARE (WNR) MEDICARE (M) PART A Feb 22, 2020 PART A [id number] ABHILASH GARAY PATIENT Selected Encounter This section includes the information on record at [place] for the Encounter. Date/Time Encounter Type Encounter Description Reason Pro vider Source Nov 28, 2023 12:55 PM Outpatient Encounter PRIMARY CARE/MEDICINE IHE Encounter Template Text not used by [place] Plan of Treatment: Future Appointments (+ 6 months) and Future Tests (+/- 45 days) The Plan of Treatment section includes future care activities for the [facility] [place] [facility] This section includes future appointments and future orders which are active, pending or scheduled. Future Appointments This section includes appointments that were scheduled to occur 6 months from the date of the Encounter, up to a maximum of 20 appointments. The data comes from all [place] treatment facilities. Appointment Date/Time Appointment Type Appointme nt Facility Name Dec 02, 2023 11:00 AM AMBULATORY - MEDICINE [facility] [place] [facility] Dec 02, 2023 02:30 PM AMBULATORY - MEDICINE [facility] [facility] Dec 04, 2023 01:00 PM AM[place]ORY [place] [facility] Dec 08, 2023 11:00 AM AM[place]ORY [place] [facility] Dec 11, 2023 01:00 PM AM[place]ORY [place] [facility] Dec 15, 2023 11:00 AM AM[place]ORY [place] [facility] Dec 15, 2023 03:00 PM AMBULATORY - MEDICINE [facility] [facility] Dec 17, 2023 02:00 PM AMBULATORY [place] Dec 18, 2023 01:00 PM AMBULATORY [place]ICINE [place] [facility] Dec 22, 2023 10:30 AM [facility] Dec 31, 2023 08:15 PM AMBULATORY - MEDICINE [place] [facility] Jan 01, 2024 01:00 PM AMBULATORY - MEDICINE [place] [facility] Jan 02, 2024 09:30 AM [place] Jan 07, 2024 03:00 PM AM[place]ULATORY [place] Jan 08, 2024 01:00 PM AM[place]ORY [place] [facility] Jan 09, 2024 11:00 AM AM[place]ORY [place] [facility] Jan 13, 2024 11:00 AM AMBULATORY - MEDICINE [place] [facility] Jan 14, 2024 03:00 PM AMBULATORY - REHAB MEDICIN [facility] Jan 21, 2024 03:00 PM AMBULATORY - [place] Jan 28, 2024 11:00 AM [place] [facility] Social History: Smoking Status (Most current) and [...] 08, 2023 09:12 AM VA-TOBACCO NEVER USED [facility] Tobacco Use History This section includes a history of the smoking, or tobacco-related health factors, that were collected on or before the date of the Encounter. The data comes from the [place] facility where the Encounter took place. Date/Time Smoking Status/Tobacco Use Comment Gil[place]to [place] Aug 09, 2021 09:20 AM [facility] Encounter Notes: All associated encounter notes This section contains the clinical notes associated to the Encounter. Date/Time Encounter Note(s) Provider Source Nov 28, 2023 12:59 PM ADDENDUM: LOCAL TITLE: Addendum STANDARD TITLE: ADDENDUM DATE OF NOTE: NOV 28, 2023@12:59:11 ENTRY DATE: NOV 28, 2023@12:59:12 AUTHOR: GE PEREIRAIGNER: URGENCY: STATUS: COMPLETED I see he has an appt in December. That will do. Thank mandy /oriana PEREIRA NP NURSE PRACTITIONER Signed: 11/28/2023 12:59 Receipt Acknowledged By: 11/28/2023 13:01 /oriana LOPEZ ADVANCED ELEMENTARY VOCAL MUSIC TEACHER ======== --- Original Document --- 11/28/23 ADMINISTRATIVE NOTE: AMSA: please contact the and establish an appt within the next 90 days. Mayco PEREIRA NP NURSE PRACTITIONER Signed: 11/28/2023 12:58 Receipt Acknowledged By: * AWAITING SIGNATURE * LUNA LOPEZ * AWAITING SIGNATURE * EUGENIE SALVADOR DAVID A [place] Nov 28, 2023 12:57 PM ADMINISTRATIVE NOT E: LOCAL TITLE: ADMINISTRATIVE NOTE STANDARD TITLE: ADMINISTRATIVE NOTE DATE OF NOTE: NOV 28, 2023@12:57 ENTRY DATE: NOV 28, 2023@12:57:44 AUTHOR: GE PEREIRAIGNER: URGENCY: STATUS: COMPLETED ADMINISTRATIVE NOTE Has ADDENDA AMSA: please contact the and establish an appt within the next 90 days. Mayco PEREIRA NP NURSE PRACTITIONER Signed: 11/28/2023 12:58 Receipt Acknowledged By: 11/28/2023 13:01 /oriana LOPEZ ADVANCED ELEMENTARY VOCAL MUSIC TEACHER 11/28/2023 13:37 /oriana SALVADOR LPN Licensed Practical Nurse 11/28/2023 ADDENDUM STATUS: COMPLETED I see he has an appt in December. That will do. Thank mandy /oriana PEREIRA NP NURSE PRACTITIONER Signed: 11/28/2023 12:59 Receipt Acknowledged By: 11/28/2023 13:01 /yunior/ LUNA LOPEZ ADVANCED ELEMENTARY VOCAL MUSIC TEACHER GE PEREIRA
--- OUTSIDE RECORDS SUMMARY | 2024-06-29 18:50 | XMS_ITS | Encounter Summary ---
Author Name [facility] [place] Address [address] [place] [address] Care Team Providers Care Card Scraper Name Role Phone ABDIR[place] Primary Care [...] BASIC FAMIL Y Jun 24, 2009 [id number] [phone] ABHILASH GARAY PATIENT ANTHEM BCBS [place] FEP PREFERRED PROVIDER ORGANIZAT ION (PPO) FEP BASIC FAM Jun 24, 2009 [id number] [phone] ABHILASH GARAY PATIENT ANTHEM BCBS [place] F[place] PREFERRED PROVIDER ORGANIZAT ION (PPO) FEP BASIC FAM Jun 24, 2009 [id number] [phone] ABHILASH GARAY PATIENT [place] PREFERRED PROVIDER ORGANIZAT ION (PPO) FEP BASIC FAM Jun 24, 2009 [id number] [phone] ABHILASH GARAY PATIENT [place] PREFERRED PROVIDER ORGANIZAT ION (PPO) FEP BASIC FAM Jun 24, 2009 [id number] [phone] RUBI GARAYNETH PATIENT [place] PREFERRED PROVIDER ORGANIZAT ION (PPO) BASIC FAMIL Y Jun 24, 2009 [id number] RUBI GARAYNETH PATIENT [place] PREFERRED PROVIDER ORGANIZAT ION (PPO) BASIC FAMIL Y Jun 24, 2009 [id number] [phone] RUBI GARAYNETH PATIENT [place] FEP PREFERRED PROVIDER ORGANIZAT ION (PPO) BASIC FAMIL Y Jun 24, 2009 [id number] RUBI GARAYNETH PATIENT [place] F[place] DENTAL DENTAL INSURANCE BASIC Jul 12, 2009 DENTAL [id number] DEJAHDANIKARUBI ACEVESNETH PATIENT [place] F[place] PREFERRED PROVIDER ORGANIZAT ION (PPO) BASIC FAMIL Y Jun 24, 2009 [id number] [phone] ABHILASH GARAY PATIENT [employer] FEP ([id number]) PRESCRIPT ION FEPRX Jun 24, 2009 [id number] [phone] ABHILASH GARAY PATIENT [place] FEP BCBS PRESCRIPT ION CAREM ARK FEPRX PLAN Nov 21, 2021 [id number] ABHILASH GARAY PATIENT [place] FEPRX PLAN PRESCRIPT ION CAREM ARK FEPRX Nov 21, 2021 [id number] ABHILASH GARAY PATIENT [place]-F EP BCBS PRESCRIPT ION FEP CAREM ARK Nov 21, 2021 [id number] ABHILASH GARAY PATIENT [place]-F EP BCBS PRESCRIPT ION FEP Jun 23, 2010 [id number] RUBI GARAYNETH PATIENT MEDICARE ([facility]) MEDICARE () PART A Feb 22, 2020 PART A [id number] [phone] ABHILASH GARAY PATIENT MEDICARE (WNR) MEDICARE (M) PART A Feb 22, 2020 PART A [id number] NV71 [id number] ABHILASH GARAY PATIENT MEDICARE (WNR) MEDICARE (M) PART A Feb 22, 2020 PART A [id number] ABHILASH GARAY PATIENT MEDICARE (WNR) MEDICARE (M) PART A Feb 22, 2020 PART A [id number] ABHILASH GARAY PATIENT MEDICARE (WNR) MEDICARE (M) PART A Feb 22, 2020 PART A [id number] [id number] [id number] ABHILASH GARAY PATIENT Selected Encounter This section includes the information on record at [place] for the Encounter. Date/Time Encounter Type Encounter Description Reason Pro vider Source Jul 09, 2023 03:43 PM Outpatient Encounter ADMIN PAT ACTIVTIES (MASNONCT) IHE Encounter Template Text not used by [place] Plan of Treatment: Future Appointments (+ 6 months) and Future Tests (+/- 45 days) The Plan of Treatment section includes future care activities for the patient from all [place] treatmentfacilities. This section includes future appointments and future orders which are active, pending or scheduled. Future Appointments This section includes appointments that were scheduled to occur 6 months from the date of the Encounter, up to a maximum of 20 appointments. The data comes from all [place] treatment facilities. Appointment Date/Time Appointment Type Appointme nt Facility Name Jul 10, 2023 01:00 PM AMBULATORY - MEDICINE [place] [facility] Jul 14, 2023 11:00 AM AMBULATORY - MEDICINE [place] [facility] Jul 17, 2023 01:00 PM AMBULATORY - MEDICINE [place] [facility] Jul 24, 2023 01:00 PM AMBULATORY - MEDICINE [place] [facility] Jul 28, 2023 11:00 AM AMBULATORY - MEDICINE [place] [facility] Jul 31, 2023 01:00 PM AMBULATORY - MEDICINE [place] [facility] Aug 01, 2023 11:00 AM AMBULATORY - MEDICINE [place] [facility] Aug 04, 2023 11:00 AM AMBULATORY - MEDICINE [place] [facility] Aug 07, 2023 01:00 PM AMBULATORY - MEDICINE [place] [facility] Aug 12, 2023 11:00 AM AMBULATORY - MEDICINE [place] [facility] Aug 14, 2023 01:00 PM AMBULATORY - MEDICINE [place] [facility] Aug 18, 2023 11:00 AM AMBULATORY - MEDICINE [place] [facility] Aug 21, 2023 01:00 PM AMBULATORY - MEDICINE [place] [facility] Aug 22, 2023 08:00 AM [facility] Aug 25, 2023 11:00 AM AMBULATORY [...] 11, 2023 01:00 PM AMBULATORY - MEDICINE [place] [facility] Social History: Smoking Status (Most current) and Tobacco Use (All prior to encounter date) This section includes the most current, and the historical, smoking and tobacco- related health factors from the [place] facility where the Encounter took place. Current Smoking Status This section includes the most current smoking, or tobacco-related health factor, from the [place] facility where the Encounter took place. Date/Time Current Smoking Status Comment Facil ity Apr 08, 2023 09:12 AM VA-TOBACCO NEVER USED [facility] Tobacco Use History This section includes a history of the smoking, or tobacco-related health factors, that were collected on or before the date of the Encounter. The data comes from the [place] facility where the Encounter took place. Date/Time Smoking Status/Tobacco Use Comment F acjaved Aug 09, 2021 09:20 AM [facility] Encounter Notes: All associated encounter notes This section contains the clinical notes associated to the Encounter. Date/Time Encounter Note(s) Provider Source Jul 09, 2023 03:48 PM ADDENDUM: LOCAL TITLE: Addendum STANDARD TITLE: ADDENDUM DATE OF NOTE: JUL 09, 2023@15:48:04 ENTRY DATE: JUL 09, 2023@15:48:04 AUTHOR: KASIA SMILEY EXP COSIGNER: URGENCY: STATUS: COMPLETED Will include PCP to update mnedication list. /yunior/ KASIA SMILEY LPN LICENSED PRACTICAL NURSE Signed: 07/09/2023 15:48 Receipt Acknowledged By: 07/09/2023 18:46 /es/ Gregg Marshall M.D. STAFF PHYSICIAN === --- Original Document --- 07/09/23 CCC: SCHEDULING ADMINISTRATION: ryan glaser [facility] diabetes [facility] [phone] called to inform dosage of levothyroxine was lowered as tsh was 0.02 on 05/01/23 and 0.01 on 07/02/23. /yunior/ MICHELLE CHÁVEZ 1 CCC AMSA Signed: 07/09/2023 15:46 Receipt Acknowledged By: 07/09/2023 15:58 /es/ FERCHO MELLO RN REGISTERED NURSE 07/09/2023 15:47 /yunior/ KASIA SMILEY LPN LICENSED PRACTICAL NURSE 07/09/2023 ADDENDUM STATUS: COMPLETED Endo crine note can be found in Right Fax. /yunior/ KASIA SMILEY LPN LICENSED PRACTICAL NURSE Signed: 07/09/2023 15:49 KASIA SMILEY [facility] [place] [facility] Jul 09, 2023 03:43 PM ADMINISTRATIVE NOTE: LOCAL TITLE: CCC: SCHEDULING ADMINISTRATION STANDARD TITLE: ADMINISTRATIVE NOTE DATE OF NOTE: JUL 09, 2023@15:43 ENTRY DATE: JUL 09, 2023@15:43:28 AUTHOR: SANTOS,MICHELLE EXP COSIGNER: URGENCY: STATUS: COMPLETED [facility]: SCHEDULING ADMINISTRATION Has ADDENDA ryan glaser [facility] diabetes [facility] [phone] called to inform dosage of levothyroxine was lowered as tsh was 0.02 on 05/01/23 and 0.01 on 07/02/23. /yunior/ MICHELLE SANTOS VISN 1 [facility] AMSA Signed: 07/09/2023 15:46 Receipt Acknowledged By: 07/09/2023 15:58 /es/ FERCHO MELLO RN REGISTERED NURSE 07/09/2023 15:47 /yunior/ KASIA SMILEY LPN LICENSED PRACTICAL NURSE 07/09/2023 ADDENDUM STATUS: COMPLETED Will include PCP to update mnedication list. /yunior/ KASIA SMILEY LPN LICENSED PRACTICAL NURSE Signed: 07/09/2023 15:48 Receipt Acknowledged By: * AWAITING SIGNATURE * GREGG MARSHALL 07/09/2023 ADDENDUM STATUS: COMPLETED Endo crine note can be found in Right Fax. /oriana SMILEY LPN LICENSED PRACTICAL NURSE Signed: 07/09/2023 15:49 MICHELLE SANTOS CNTRL [facility]
--- OUTSIDE RECORDS SUMMARY | 2024-06-29 18:50 | XMS_ITS | Encounter Summary ---
Author Name [facility] [place] [facility] [place] Address [address] [place] [address] Care Team Providers Care Nondestructive Tester Name Role Phone ABDIRAHMAN LAKE Primary Care [...] BASIC FAMIL Y Jun 24, 2009 112 [id number] [phone] ABHILASH GARAY PATIENT ANTHEM [place]BS [place] F[place] PREFERRED PROVIDER ORGANIZAT ION (PPO) FEP BASIC FAM Jun 24, 2009 112 [id number] [phone] ABHILASH GARAY PATIENT ANTHEM BCBS [place] F[place] PREFERRED PROVIDER ORGANIZAT ION (PPO) FEP BASIC FAM Jun 24, 2009 112 [id number] [phone] ABHILASH GARAY PATIENT ANTHE[place] F[place] PREFERRED PROVIDER ORGANIZAT ION (PPO) FEP BASIC FAM Jun 24, 2009 112 [id number] [phone] ABHILASH GARAY PATIENT [place] F[place] PREFERRED PROVIDER ORGANIZAT ION (PPO) FEP BASIC FAM Jun 24, 2009 112 [id number] [phone] RUBI GARAYNETH PATIENT BCBS [place] FEP PREFERRED PROVIDER ORGANIZAT ION (PPO) BASIC FAMIL Y Jun 24, 2009 112 [id number] RUBI GARAYNETH PATIENT [place] PREFERRED PROVIDER ORGANIZAT ION (PPO) BASIC FAMIL Y Jun 24, 2009 112 [id number] [phone] RUBI GARAYNETH PATIENT [place] FEP PREFERRED PROVIDER ORGANIZAT ION (PPO) BASIC FAMIL Y Jun 24, 2009 [id number] RUBI GARAYNETH PATIENT [place] F[place] DENTAL DENTAL INSURANCE BASIC Jul 12, 2009 DENTAL [id number] [phone] DEJAHDANIKARUBI ACEVESNETH PATIENT [place] F[place] PREFERRED PROVIDER ORGANIZAT ION (PPO) BASIC FAMIL Y Jun 24, 2009 [id number] ABHILASH GARAY PATIENT [place] FEP ([id number]) PRESCRIPT ION FEPRX Jun 24, 2009 [id number] [phone] ABHILASH GARAY PATIENT [place] FEP BCBS PRESCRIPT ION CAREM ARK FEPRX PLAN Nov 21, 2021 [id number] ABHILASH GARAY PATIENT [place] FEPRX PLAN PRESCRIPT ION CAREM ARK FEPRX Nov 21, 2021 [id number] ABHILASH GARAY PATIENT [place]-F [place] BCBS PRESCRIPT ION FEP CAREM ARK Nov 21, 2021 [id number] ABHILASH GARAY PATIENT [place]-F EP BCBS PRESCRIPT ION FEP Jun 23, 2010 [id number] RUBI GARAYNETH PATIENT MEDICARE ([facility]) MEDICARE () PART A Feb 22, 2020 PART A [id number] ABHILASH GARAY PATIENT MEDICARE (WNR) MEDICARE (M) PART A Feb 22, 2020 PART A [id number] ABHILASH GARAY PATIENT MEDICARE (WNR) MEDICARE (M) PART A Feb 22, 2020 PART A [id number] [id number] ABHILASH GARAY PATIENT MEDICARE (WNR) MEDICARE (M) PART A Feb 22, 2020 PART A [id number] ABHILASH GARAY PATIENT MEDICARE (WNR) MEDICARE (M) PART A Feb 22, 2020 PART A [id number] ABHILASH GARAY PATIENT Selected Encounter This section includes the information on record at [place] for the Encounter. Date/Time Encounter Type Encounter Description Reason Pro vider Source Jul 03, 2023 02:01 PM Outpatient Encounter ADMIN PAT ACTIVTIES (MASNONCT) [...] 10, 2023 01:00 PM AMBULATORY - MEDICINE [place] [facility] [place] [facility] Jul 14, 2023 11:00 AM AMBULATORY - MEDICINE [place] [facility] [place] [facility] Jul 17, 2023 01:00 PM AMBULATORY - MEDICINE [place] [facility] [place] [facility] Jul 24, 2023 01:00 PM AMBULATORY - MEDICINE [place] [facility] [place] [facility] Jul 28, 2023 11:00 AM AMBULATORY - MEDICINE [place] [facility] [place] [facility] Jul 31, 2023 01:00 PM AMBULATORY - MEDICINE [place] [facility] [place] [facility] Aug 01, 2023 11:00 AM AMBULATORY - MEDICINE [place] [facility] [place] [facility] Aug 04, 2023 11:00 AM AMBULATORY [place]ICINE [place] [facility] [place] [facility] Aug 07, 2023 01:00 PM AMBULATORY - MEDICINE [place] [facility] [place] [facility] Aug 12, 2023 11:00 AM AMBULATORY - MEDICINE [place] [facility] [place] [facility] Aug 14, 2023 01:00 PM AMBULATORY - MEDICINE [place] [facility] [place] [facility] Aug 18, 2023 11:00 AM AMBULATORY - MEDICINE [place] [facility] [place] [facility] Aug 21, 2023 01:00 PM AMBULATORY - MEDICINE [place] [facility] [place] [facility] Aug 22, 2023 08:00 AM [facility] Aug 25, 2023 11:00 AM AMBULATORY - MEDICINE [place] [facility] [place] [facility] Aug 28, 2023 01:00 PM AMBULATORY - MEDICINE [place] [facility] [place] [facility] Sep 01, 2023 11:00 AM AMBULATORY - MEDICINE [place] [facility] [place] [facility] Sep 04, 2023 01:00 PM AMBULATORY - MEDICINE [place] [facility] [place] [facility] Sep 08, 2023 11:00 AM AMBULATORY - MEDICINE [place] [facility] [place] [facility] Sep 11, 2023 01:00 PM AMBULATORY - [place]ICINE [place] [facility] [place] [facility] Social History: Smoking Status (Most current) [...] 2023 09:12 AM VA-TOBACCO NEVER USED [facility] Tobacco Use History This section includes a history of the smoking, or tobacco-related health factors, that were collected on or before the date of the Encounter. The data comes from the [place] facility where the Encounter took place. Date/Time Smoking Status/Tobacco Use Comment F acjaved Aug 09, 2021 09:20 AM [facility] Encounter Notes: All associated encounter notes This section contains the clinical notes associated to the Encounter. Date/Time Encounter Note(s) Provider Source Jul 03, 2023 02:44 PM ADDENDUM: LOCAL TITLE: Addendum STANDARD TITLE: ADDENDUM DATE OF NOTE: JUL 03, 2023@14:44:59 ENTRY DATE: JUL 03, 2023@14:45 AUTHOR: FERCHO MELLO COSIGNER: URGENCY: STATUS: COMPLETED Adding AMSA to request notes and prescription for levothyroxine. /es/ FERCHO MELLO RN REGISTERED NURSE Signed: 07/03/2023 14:45 Receipt Acknowledged By: 07/04/2023 13:42 /es/ GATO GUARDADO WEST ASSISTANT MANAGER AIRSIDE OPERATIONS --- Original Document --- 07/03/23 CCC: SCHEDULING ADMINISTRATION: Patient Demographics Patient Name: ABHILASH GARAY Patient Primary Phone: [phone] Patient Primary Address: [address] [place] [address] Patient : 1955 Patient Age: 68 Caller/Recipient Relation to Patient: Self Administrative Administrative Note Reason: Other Administrative Note Comments: [place] following up on request from Dr. Bernardo his Non [place] Orthotic Aide to adjust the dosage of Rx #[id number] - LEVOTHYROXINE NA (SYNTHROID) 175MCG TAB to Rx #[id number] - LEVOTHYROXINE NA (SYNTHROID) 150MCG TAB /es/ EMELY [facility] AMSA Signed: 07/03/2023 14:01 Receipt Acknowledged By: * AWAITING SIGNATURE * KASIA SMILEY 07/03/2023 14:46 /es/ FERCHO MELLO RN REGISTERED NURSE 07/04/2023 ADDENDUM STATUS: COMPLETED THIS GLYCERIN SUPERVISOR SENT FAX REQUEST FOR NOTES and NEW SCRIPT [id number] Bernardo his Non [place] Orthotic Aide to adjust the dosage of Rx #[id number] - LEVOTHYROXINE NA (SYNTHROID) 175MCG TAB to Rx #[id number] - LEVOTHYROXINE NA (SYNTHROID) 150MCG TAB /yunior/ GATO GUARDADO ADVANCE ASSISTANT MANAGER AIRSIDE OPERATIONS Signed: 07/04/2023 13:42 FERCHO MELLO [facility] [place] [facility] Jul 03, 2023 02:01 PM ADMINISTRATIVE NOTE: LOCAL TITLE: CCC: SCHEDULING ADMINISTRATION STANDARD TITLE: ADMINISTRATIVE NOTE DATE OF NOTE: JUL 03, 2023@14:01:17 ENTRY DATE: JUL 03, 2023@14:01:17 AUTHOR: EMELY MARQUEZ EXP COSIGNER: URGENCY: STATUS: COMPLETED CCC: SCHEDULING ADMINISTRATION Has ADDENDA Patient Demographics Patient Name: ABHILASH GARAY Patient Primary Phone: [phone] Patient Primary Address: [address] [place] [id number] Patient : 1955 Patient Age: 68 Caller/Recipient Relation to Patient: Self Administrative Administrative Note Reason: Other Administrative Note Comments: following up on request from Dr. Bernardo his Non [place] Orthotic Aide to adjust the dosage of Rx #[id number] - LEVOTHYROXINE NA (SYNTHROID) 175MCG TAB to Rx #[id number] - LEVOTHYROXINE NA (SYNTHROID) 150MCG TAB /es/ EMELY MARQUEZ [facility]IS[facility] AMSA Signed: 07/03/2023 14:01 Receipt Acknowledged By: 07/08/2023 09:39 /es/ KASIA SMILEY LPN LICENSED PRACTICAL NURSE 07/03/2023 14:46 /es/ FERCHO MELLO RN REGISTERED NURSE 07/03/2023 ADDENDUM STATUS: COMPLETED Adding AMSA to request notes and prescription for levothyroxine. /yunior/ FERCHO MELLO RN REGISTERED NURSE Signed: 07/03/2023 14:45 Receipt Acknowledged By: 07/04/2023 13:42 /yunior/ GATO GUARDADO ADVANCE ASSISTANT MANAGER AIRSIDE OPERATIONS 07/04/2023 ADDENDUM STATUS: COMPLETED THIS GLYCERIN SUPERVISOR SENT FAX REQUEST FOR NOTES and NEW SCRIPT [id number] Bernardo his Non [place] Orthotic Aide to adjust the dosage of Rx #[id number] - LEVOTHYROXINE NA (SYNTHROID) 175MCG TAB to Rx #[id number] - LEVOTHYROXINE NA (SYNTHROID) 150MCG TAB /es/ GATO GUARDADO ADVANCE ASSISTANT MANAGER AIRSIDE OPERATIONS Signed: 07/04/2023 13:42 EMELY MARQUEZ [facility] [place] [facility]
--- OUTSIDE RECORDS SUMMARY | 2024-06-29 18:50 | XMS_ITS | Encounter Summary ---
Author Name [facility] [place] [facility] [place] [facility] [place] Address [address] [place] [address] Care Team Providers Care Shingle Packer Name Role Phone ABDIRAHMAN LAKE Primary Care [...] BASIC FAMIL Y Jun 24, 2009 [id number] [phone] ABHILASH GARAY PATIENT ANTHEM BCBS [place] F[place] PREFERRED PROVIDER ORGANIZAT ION (PPO) FEP BASIC FAM Jun 24, 2009 112 [id number] [phone] ABHILASH GARAY PATIENT ANTHEM [place]BS [place] F[place] PREFERRED PROVIDER ORGANIZAT ION (PPO) FEP BASIC FAM Jun 24, 2009 112 [id number] [phone] ABHILASH GARAY PATIENT ANTHE[place] PREFERRED PROVIDER ORGANIZAT ION (PPO) FEP BASIC FAM Jun 24, 2009 112 [id number] [phone] ABHILASH GARAY PATIENT [place] FEP PREFERRED PROVIDER ORGANIZAT ION (PPO) FEP BASIC FAM Jun 24, 2009 112 [id number] [phone] ABHILASH GARAY PATIENT [place] F[place] PREFERRED PROVIDER ORGANIZAT ION (PPO) BASIC FAMIL Y Jun 24, 2009 [id number] ABHILASH GARAY PATIENT [place] PREFERRED PROVIDER ORGANIZAT ION (PPO) BASIC FAMIL Y Jun 24, 2009 [id number] ABHILASH GARAY PATIENT [place] PREFERRED PROVIDER ORGANIZAT ION (PPO) BASIC FAMIL Y Jun 24, 2009 [id number] ABHILASH GARAY PATIENT [place] F[place] DENTAL DENTAL INSURANCE BASIC Jul 12, 2009 DENTAL [id number] ABHILASH GARAY PATIENT [place] FEP PREFERRED PROVIDER ORGANIZAT ION (PPO) BASIC FAMIL Y Jun 24, 2009 [id number] ABHILASH GARAY PATIENT [place] FEP ([id number]) PRESCRIPT ION FEPRX Jun 24, 2009 [id number] [phone] ABHILASH GARAY PATIENT [place] FEP BCBS PRESCRIPT ION CAREM ARK FEPRX PLAN Nov 21, 2021 [id number] ABHILASH GARAY PATIENT [place] FEPRX PLAN PRESCRIPT ION CAREM ARK FEPRX Nov 21, 2021 [id number] ABHILASH GARAY PATIENT [place]-F EP BCBS PRESCRIPT ION FEP CAREM ARK Nov 21, 2021 [id number] ABHILASH GARAY PATIENT [place]-F EP BCBS PRESCRIPT ION FEP Jun 23, 2010 [id number] ABHILASH GARAY PATIENT MEDICARE (WN) MEDICARE () PART A Feb 22, 2020 PART A [id number] ABHILASH GARAY PATIENT MEDICARE ([facility]) MEDICARE () PART A Feb 22, 2020 PART A [id number] ABHILASH GARAY PATIENT MEDICARE (WNR) MEDICARE (M) PART A Feb 22, 2020 PART A [id number] ABHILASH GARAY PATIENT MEDICARE (WNR) MEDICARE (M) PART A Feb 22, 2020 PART A [id number] ABHILASH GARAY PATIENT MEDICARE (WNR) MEDICARE (M) PART A Feb 22, 2020 PART A [id number] ABHILASH GARAY PATIENT Selected Encounter This section includes the information on record at [place] for the Encounter. Date/Time Encounter Type Encounter Description Reason Provider Source Sep 08, 2023 11:00 AM STRESS MGMT CLASS HEALTH/WELLBEING SRVS ICD-10-CM Y93.42 Activity, PAT Yoder IHFran Encounter Template Text not used by [place] Assessments - Encounter Diagnoses This section includes the primary and secondary diagnoses documented for the Encounter. Date/Time Primary/Secondary Diagnosis Diagnosis Name Provider Source Sep 08, 2023 02:26 PM PRIMARY Activity, PEDRO Yoder [facility] [place] [facility] Plan of Treatment: Future Appointments (+ 6 months) and Future Tests (+/- 45 days) The Plan of Treatment section includes future care activities for the patient from all [place] treatmentfacilities. This section includes future appointments and future orders which are active, pending or scheduled. Future Appointments This section includes appointments that were scheduled to occur 6 months from the date of the Encounter, up to a maximum of 20 appointments. The data comes from all [place] treatment facilities. Appointment Date/Time Appointment Type Appointme nt Facility Name Sep 11, 2023 01:00 PM AMBULATORY - MEDICINE [place] [facility] [place] [facility] Sep 16, 2023 11:00 AM AMBULATORY - MEDICINE [place] [facility] [place] [facility] Sep 29, 2023 11:00 AM AMBULATORY - MEDICINE [place] [facility] [place] [facility] Oct 02, 2023 01:00 PM AMBULATORY - MEDICINE [place] [facility] [place] [facility] Oct 06, 2023 11:00 AM AMBULATORY - MEDICINE [place] [facility] [place] [facility] Oct 06, 2023 12:40 PM AMBULATORY - MEDICINE [place] [facility] [place] [facility] Oct 09, 2023 01:00 PM AMBULATORY - MEDICINE [place] [facility] [place] [facility] Oct 13, 2023 11:00 AM AMBULATORY - MEDICINE [place] [facility] [place] [facility] Oct 16, 2023 01:00 PM AMBULATORY - MEDICINE [place] [facility] [place] [facility] Oct 20, 2023 11:00 AM AMBULATORY - MEDICINE [place] [facility] [place] [facility] October 23, 2023 01:00 PM AMBULATORY - MEDICINE [place] [facility] [place] [facility] October 27, 2023 11:00 AM AMBULATORY - MEDICINE [place] [facility] [place] [facility] November 03, 2023 11:00 AM AMBULATORY - MEDICINE [place] [facility] [place] [facility] November 03, 2023 01:00 PM AMBULATORY - MEDICINE [place] [facility] [place] [facility] November 06, 2023 01:00 PM AMBULATORY - MEDICINE [place] [facility] [place] [facility] November 06, 2023 02:00 PM AMBULATORY - MEDICINE [place] [facility] [place] [facility] November 10, 2023 11:00 AM AMBULATORY - MEDICINE [place] [facility] [place] [facility] November 13, 2023 10:30 AM AMBULATORY - MEDICINE [place] [facility] [place] [facility] November 18, 2023 11:00 AM AMBULATORY - MEDICINE [place] [facility] [place] [facility] November 20, 2023 10:30 AM AMBULATORY - MEDICINE [place] [facility] [place] [facility] Social History: Smoking Status (Most current) and Tobacco Use (All prior to encounter date) This section includes the most current, and the historical, smoking and tobacco- related health factors from the [place] facility where the Encounter took place. Current Smoking Status This section includes the most current smoking, or tobacco-related health factor, from the [place] facility where the Encounter took place. Date/Time Current Smoking Status Comment Odalis mosleyy Apr 08, 2023 09:12 AM VA-TOBACCO NEVER USED [facility] [place] [facility] Tobacco Use History This section includes a history of the smoking, or tobacco-related health factors, that were collected on or before the date of the Encounter. The data comes from the [place] facility where the Encounter took place. Date/Time Smoking Status/Tobacco Use Comment Gilberto boston Aug 09, 2021 09:20 AM AR-TOBACCO NEVER USED [facility] Encounter Notes: All associated encounter notes This section contains the clinical notes associated to the Encounter. Date/Time Encounter Note(s) Provider Source Sep 08, 2023 12:30 PM RECREATIONAL THERA PY NOTE: LOCAL TITLE: YOGA WELLBEING STANDARD TITLE: RECREATIONAL THERAPY NOTE DATE OF NOTE: SEP 08, 2023@12:30 ENTRY DATE: SEP 08, 2023@14:21:14 AUTHOR: MARY KATE MOORE EXP COSIGNER: URGENCY: [...] triangle pose, wide leg forward bend variations, [place] 2, extended side angle pose, [place] 1, plank, cobra, locust, downward facing dog, wisdom pose, contralateral limb raises, head to knee pose, bridge, reclined twist, knees to chest; Systematic Relaxation; and Gratitude. Modifications were geared toward the [place]'s individual needs and preferences. [place] was one of seven participants in Group Yoga. He practiced all the postures offered, using a chair, yoga blocks, and a yoga strap for support as needed. He was attentive to his breath throughout the session. will return to class as his schedule allows. /yunior/ MARY KATE MOORE, [id number] Intelligence Consultant Signed: 09/08/2023 14:32 MARY KATE MOORE [facility]
--- OUTSIDE RECORDS SUMMARY | 2024-06-29 18:50 | XMS_ITS | Encounter Summary ---
Author Name [facility] [place] [facility] [place] Address [address] [place] [address] Care Team Providers Care Hair Dresser Name Role Phone ABDIRAHMAN LAKE Primary Care [...] BASIC FAMIL Y Jun 24, 2009 112 [id number] [phone] ABHILASH GARAY PATIENT ANTHEM BCBS [place] FEP PREFERRED PROVIDER ORGANIZAT ION (PPO) FEP BASIC FAM Jun 24, 2009 112 [id number] [phone] ABHILASH GARAY PATIENT ANTHEM BCBS [place] F[place] PREFERRED PROVIDER ORGANIZAT ION (PPO) FEP BASIC FAM Jun 24, 2009 112 [id number] [phone] ABHILASH GARAY PATIENT ANTHEM [place] PREFERRED PROVIDER ORGANIZAT ION (PPO) FEP BASIC FAM Jun 24, 2009 112 [id number] [phone] ABHILASH GARAY PATIENT [place] F[place] PREFERRED PROVIDER ORGANIZAT ION (PPO) FEP BASIC FAM Jun 24, 2009 112 [id number] [phone] RUBI GARAYNETH PATIENT BCBS [place] FEP PREFERRED PROVIDER ORGANIZAT ION (PPO) BASIC FAMIL Y Jun 24, 2009 112 [id number] [phone] ABHILASH GARAY PATIENT [place] PREFERRED PROVIDER ORGANIZAT ION (PPO) BASIC FAMIL Y Jun 24, 2009 [id number] ABHILASH GARAY PATIENT [place] FEP PREFERRED PROVIDER ORGANIZAT ION (PPO) BASIC FAMIL Y Jun 24, 2009 112 [id number] [phone] RUBI GARAYNETH PATIENT [place] FEP DENTAL DENTAL INSURANCE BASIC Jul 12, 2009 DENTAL [id number] RUBI GARAYNETH PATIENT [place] F[place] PREFERRED PROVIDER ORGANIZAT ION (PPO) BASIC FAMIL Y Jun 24, 2009 [id number] ABHILASH GARAY PATIENT [place] FEP ([id number]) PRESCRIPT ION FEPRX Jun 24, 2009 [id number] [phone] ABHILASH GARAY PATIENT [place] FEP BCBS PRESCRIPT ION CAREM ARK FEPRX PLAN Nov 21, 2021 [id number] ABHILASH GARAY PATIENT [place] FEPRX PLAN PRESCRIPT ION CAREM ARK FEPRX Nov 21, 2021 [id number] ABHILASH GARAY PATIENT [place]-F [place] BCBS PRESCRIPT ION FEP CAREM ARK Nov 21, 2021 [id number] ABHILASH GARAY PATIENT [place]-F EP BCBS PRESCRIPT ION FEP Jun 23, 2010 [id number] ABHILASH GARAY PATIENT MEDICARE (WN) MEDICARE (M) PART A Feb 22, 2020 PART A [id number] [phone] ABHILASH GARAY PATIENT MEDICARE ([facility] MEDICARE (M) PART A Feb 22, 2020 PART A [id number] ABHILASH GARAY PATIENT MEDICARE (WNR) MEDICARE (M) PART A Feb 22, 2020 PART A [id number] ABHILASH GARAY PATIENT MEDICARE (WNR) MEDICARE (M) PART A Feb 22, 2020 PART A [id number] [phone] ABHILASH GARAY PATIENT MEDICARE (WNR) MEDICARE (M) PART A Feb 22, 2020 PART A [id number] ABHILASH GARAY PATIENT Selected Encounter This section includes the information on record at [place] for the Encounter. Date/Time Encounter Type Encounter Description Reason Provider Source Dec 02, 2023 08:45 AM PRO PHONE CALL 5-10 MIN TELEPHONE/MEDICIN E ICD-10-CM G47.33 Obstructive sleep apnea (adult) (pediatric) JANIE CARPIO [facility] Encounter Template Text not used by [place] Assessments - Encounter Diagnoses This section includes the primary and secondary diagnoses documented for the Encounter. Date/Time Primary/Secondary Diagnosis Diagnosis Name Provider Source Dec 02, 2023 08:45 AM PRIMARY Obstructive sleep apnea (adult) (pediatric) [facility] Plan of Treatment: Future Appointments (+ 6 months) and Future Tests (+/- 45 days) The Plan of Treatment section includes future care activities for the patient from all [place] treatmentfacilities. This section includes future appointments and future orders which are active, pending or scheduled. Future Appointments This section includes appointments that were scheduled to occur 6 months from the date of the Encounter, up to a maximum of 20 appointments. The data comes from all [place] treatment facilities. Appointment Date/Time Appointment Type Appointme nt Facility Name Dec 04, 2023 01:00 PM AMBULATORY - MEDICINE [place] [facility] [place] [facility] Dec 08, 2023 11:00 AM AMBULATORY - MEDICINE [place] [facility] [place] [facility] Dec 11, 2023 01:00 PM AMBULATORY - MEDICINE [place] [facility] [place] [facility] Dec 15, 2023 11:00 AM AMBULATORY - MEDICINE [place] [facility] [facility] Dec 15, 2023 03:00 PM AMBULATORY - MEDICINE [place] [facility] [facility] Dec 17, 2023 02:00 PM [facility]ORY [facility] [place] Dec 18, 2023 01:00 PM AMBULATORY - MEDICINE [facility] [facility] Dec 22, 2023 10:30 AM [facility] Dec 31, 2023 08:15 PM AMBULATORY - MEDICINE [facility] [facility] Jan 01, 2024 01:00 PM AMBULATORY - MEDICINE [facility] [place] [facility] Jan 02, 2024 09:30 AM AM[facility]ULATORY [facility] [place] Jan 07, 2024 03:00 PM AMBULATORY [facility] [place] Jan 08, 2024 01:00 PM AMBULATORY - MEDICINE [facility] [place] [facility] Jan 09, 2024 11:00 AM AMBULATORY - MEDICINE [facility] [facility] Jan 13, 2024 11:00 AM AMBULATORY - MEDICINE [place] [facility] [facility] Jan 14, 2024 03:00 PM AMBULATORY - [facility] [place] Jan 21, 2024 03:00 PM AMBULATORY - [facility]AB [facility] [place] Jan 28, 2024 11:00 AM AMBULATORY - MEDICINE [place] [facility] [facility] Jan 30, 2024 08:00 AM [facility] Feb 02, 2024 02:00 PM AMBULATORY - MEDICINE [place] [facility] Social History: Smoking Status (Most current) and Tobacco Use (All prior to encounter date) This section includes the most current, and the historical, smoking and tobacco- related health factors from the [place] facility where the Encounter took place. Current Smoking Status This section includes the most current smoking, or tobacco-related health factor, from the [place] facility where the Encounter took place. Date/Time Current Smoking Status Comment Facil ity Apr 08, 2023 09:12 AM VA[facility]TO[facility]ACCO [facility] Tobacco Use History This section includes a history of the smoking, or tobacco-related health factors, that were collected on or before the date of the Encounter. The data comes from the [place] facility where the Encounter took place. Date/Time Smoking Status/Tobacco Use Comment F acility Aug 09, 2021 09:20 AM VA-TOBACCO NEVER USED [place] [facility] [facility] Encounter Notes: All associated encounter notes This section contains the clinical notes associated to the Encounter. Date/Time Encounter Note(s) Provider Source Dec 02, 2023 08:45 AM SLEEP MEDICINE NOT E: LOCAL TITLE: CPAP CLINIC NOTE STANDARD TITLE: SLEEP MEDICINE NOTE DATE OF NOTE: DEC 02, 2023@08:45 ENTRY DATE: DEC 02, 2023@08:46:04 AUTHOR: JANIE CARPIO EXP COSIGNER: URGENCY: STATUS: COMPLETED CPAP CLINIC NOTE Has ADDENDA Attempted to contact , dx with GLENN, and left message for him to call back regarding questions about his cpap mask. Lynn is wondering if he needs to be refitted for the mask. Mask might be bad, but lasted about a week, then leaked again. /yunior/ JANIE CARPIO CRT RESPIRATORY THERAPIST Signed: 12/02/2023 08:47 12/02/2023 ADDENDUM STATUS: COMPLETED Telephone Coding and Documentation: Diagnosis: Sleep Apnea Time spent with Patient via telephone: 6 minutes. called back to say his mask doesn't seem to be keeping a good seal. He was advised to be sure to clean his face with soap and water before bed and clean the mask in the morning. The F20 medium full face mask is the same mask he's been using for years. He has not lost weight. Lynn will be ordered extra cushions he can change every month to keep a good seal. /yunior/ JANIE CARPIO CRT RESPIRATORY THERAPIST Signed: 12/02/2023 10:22 JANIE CARPIO
--- OUTSIDE RECORDS SUMMARY | 2024-06-29 18:50 | XMS_ITS | Encounter Summary ---
Author Name [facility] [place] Organization [facility] [place] [facility] [place] Address [address] [place] [address] Care Team Providers Care Wool Hat Flanger Name Role Phone ABDIRAHMAN LAKE Primary Care [...] BASIC FAMIL Y Jun 24, 2009 [id number] [phone] ABHILASH GARAY PATIENT ANTHEM BCBS [place] F[place] PREFERRED PROVIDER ORGANIZAT ION (PPO) FEP BASIC FAM Jun 24, 2009 112 [id number] [phone] ABHILASH GARAY PATIENT ANTHEM BCBS [place] FEP PREFERRED PROVIDER ORGANIZAT ION (PPO) FEP BASIC FAM Jun 24, 2009 112 [id number] [phone] ABHILASH GARAY PATIENT [place]THE[place] PREFERRED PROVIDER ORGANIZAT ION (PPO) FEP BASIC FAM Jun 24, 2009 112 [id number] [phone] ABHILASH GARAY PATIENT [place] F[place] PREFERRED PROVIDER ORGANIZAT ION (PPO) FEP BASIC FAM Jun 24, 2009 112 [id number] [phone] ABHILASH GARAY PATIENT [place] F[place] PREFERRED PROVIDER ORGANIZAT ION (PPO) BASIC FAMIL Y Jun 24, 2009 [id number] ABHILASH GARAY PATIENT [place] F[place] PREFERRED PROVIDER ORGANIZAT ION (PPO) BASIC FAMIL Y Jun 24, 2009 [id number] ABHILASH GARAY PATIENT [place] F[place] PREFERRED PROVIDER ORGANIZAT ION (PPO) BASIC FAMIL Y Jun 24, 2009 [id number] ABHILASH GARAY PATIENT [place] F[place] DENTAL DENTAL INSURANCE BASIC Jul 12, 2009 DENTAL [id number] [phone] ABHILASH GARAY PATIENT [place] PREFERRED PROVIDER ORGANIZAT ION (PPO) BASIC FAMIL Y Jun 24, 2009 [id number] ABHILASH GARAY PATIENT [employer] FEP ([id number]) PRESCRIPT ION FEPRX Jun 24, 2009 [id number] [phone] ABHILASH GARAY PATIENT [place] FEP BCBS PRESCRIPT ION CAREM ARK FEPRX PLAN Nov 21, 2021 [id number] ABHILASH GARAY PATIENT [employer] FEPRX PLAN PRESCRIPT ION CAREM ARK FEPRX Nov 21, 2021 [id number] ABHILASH GARAY PATIENT [place]-F EP BCBS PRESCRIPT ION FEP CAREM ARK Nov 21, 2021 [id number] ABHILASH GARAY PATIENT [place]-F EP BCBS PRESCRIPT ION FEP Jun 23, 2010 [id number] ABHILASH GARAY PATIENT MEDICARE (WN) MEDICARE () PART A Feb 22, 2020 PART A [id number] ABHILASH GARAY PATIENT MEDICARE ([facility]) MEDICARE () PART A Feb 22, 2020 PART A [id number] ABHILASH GARAY PATIENT MEDICARE (WNR) MEDICARE (M) PART A Feb 22, 2020 PART A [id number] [phone] ABHILASH GARAY PATIENT MEDICARE (WNR) MEDICARE (M) PART A Feb 22, 2020 PART A [id number] ABHILASH GARAY PATIENT MEDICARE (WNR) MEDICARE (M) PART A Feb 22, 2020 PART A [id number] ABHILASH GARAY PATIENT Selected Encounter This section includes the information on record at [place] for the Encounter. Date/Time Encounter Type Encounter Description Reason Provider Source Jul 10, 2023 01:00 PM STRESS MGMT CLASS HEALTH/WELLBEING SRVS ICD-10-CM Y93.42 Activity, PAT Yoder IHFran Encounter Template Text not used by [place] Assessments - Encounter Diagnoses This section includes the primary and secondary diagnoses documented for the Encounter. Date/Time Primary/Secondary Diagnosis Diagnosis Name Provider Source Jul 11, 2023 08:15 AM PRIMARY Activity, PEDRO Yoder [facility] [place] [facility] Plan of Treatment: Future Appointments (+ 6 months) and Future Tests (+/- 45 days) The Plan of Treatment section includes future care activities for the patient from all [place] treatmentfacilities. This section includes future appointments and future orders which are active, pending or scheduled. Future Appointments This section includes appointments that were scheduled to occur 6 months from the date of the Encounter, up to a maximum of 20 appointments. The data comes from all [place] treatment facilities. Appointment Date/Time Appointment Type Appointme nt Facility Name Jul 14, 2023 11:00 AM AMBULATORY - MEDICINE [place] [facility] [place] [facility] Jul 17, 2023 01:00 PM AMBULATORY - MEDICINE [place] [facility] [place] [facility] Jul 24, 2023 01:00 PM AMBULATORY - MEDICINE [place] [facility] [place] [facility] Jul 28, 2023 11:00 AM AMBULATORY - MEDICINE [place] [facility] [place] [facility] Jul 31, 2023 01:00 PM AMBULATORY - MEDICINE [facility] [place] [facility] Aug 01, 2023 11:00 AM AMBULATORY - MEDICINE [facility] [place] [facility] Aug 04, 2023 11:00 AM AMBULATORY - MEDICINE [facility] [place] [facility] Aug 07, 2023 01:00 PM AMBULATORY - MEDICINE [facility] [place] [facility] Aug 12, 2023 11:00 AM AMBULATORY - MEDICINE [facility] [place] [facility] Aug 14, 2023 01:00 PM AMBULATORY - MEDICINE [facility] [place] [facility] Aug 18, 2023 11:00 AM AMBULATORY - MEDICINE [facility] [place] [facility] Aug 21, 2023 01:00 PM AMBULATORY - MEDICINE [facility] [place] [facility] Aug 22, 2023 08:00 AM [facility] Aug 25, 2023 11:00 AM AMBULATORY - MEDICINE [facility] [place] [facility] Aug 28, 2023 01:00 PM AMBULATORY - MEDICINE [facility] [place] [facility] Sep 01, 2023 11:00 AM AMBULATORY - MEDICINE [facility] [place] [facility] Sep 04, 2023 01:00 PM AMBULATORY - MEDICINE [facility] [place] [facility] Sep 08, 2023 11:00 AM AMBULATORY - MEDICINE [facility] [place] [facility] Sep 11, 2023 01:00 PM AMBULATORY - MEDICINE [facility] [place] [facility] Sep 16, 2023 11:00 AM AMBULATORY - MEDICINE [facility] [place] [facility] Social History: Smoking Status (Most current) and Tobacco Use (All prior to encounter date) This section includes the most current, and the historical, smoking and tobacco- related health factors from the [place] facility where the Encounter took place. Current Smoking Status This section includes the most current smoking, or tobacco-related health factor, from the [place] facility where the Encounter took place. Date/Time Current Smoking Status Comment Odalis casey Apr 08, 2023 09:12 AM VA-TOBACCO [facility] USED [facility] Tobacco Use History This section includes a history of the smoking, or tobacco-related health factors, that were collected on or before the date of the Encounter. The data comes from the [place] facility where the Encounter took place. Date/Time Smoking Status/Tobacco Use Comment Gilberto boston Aug 09, 2021 09:20 AM ME-TOBACCO NEVER USED [facility] Encounter Notes: All associated encounter notes This section contains the clinical notes associated to the Encounter. Date/Time Encounter Note(s) Provider Source Jul 10, 2023 03:30 PM RECREATIONAL THERA PY NOTE: LOCAL TITLE: YOGA WELLBEING STANDARD TITLE: RECREATIONAL THERAPY NOTE DATE OF NOTE: JUL 10, 2023@15:30 ENTRY DATE: JUL 11, 2023@08:08:56 AUTHOR: MARY KATE MOORE EXP COSIGNER: URGENCY: [...] triangle pose, wide leg forward bend variations, Combs 2, extended side angle pose, Combs 1, plank, cobra, locust, downward facing dog, wisdom pose, contralateral limb raises, head to knee pose, bridge, reclined twist, knees to chest; Systematic Relaxation; and Gratitude. Modifications were geared toward the 's individual needs and preferences. Marathon was one of eleven participants in Group Yoga. This was his first-ever yoga class. He practiced all the postures offered, alternating between using a chair, yoga blocks, and a yoga strap for support as needed. He modified his poses accordingly. will return to class as his schedule allows. /yunior/ ROXANNA [id number] Cage Shift Manager Signed: 07/11/2023 08:32 [facility] KATE MOORE [facility] Jul 10, 2023 02:43 PM RECREATIONAL THERA PY CONSULT: LOCAL TITLE: CONSULT REPORT/YOGA STANDARD TITLE: RECREATIONAL THERAPY CONSULT DATE OF NOTE: JUL 10, 2023@14:43 ENTRY DATE: JUL 10, 2023@14:44:02 AUTHOR: MARY KATE MOORE EXP COSIGNER: URGENCY: STATUS: COMPLETED attended Group Yoga class on 07/10/2023. Please see Yoga Wellbeing Note. /yunior/ NINO [id number] Cage Shift Manager Signed: 07/10/2023 14:46 MARY KATE MOORE [facility]
--- OUTSIDE RECORDS SUMMARY | 2024-06-29 18:50 | XMS_ITS ---
Author Name [facility] [place] [facility] [place] [facility] [place] Address [address] [place] [address] Care Team Providers Care Donor Services Specialist Name Role Phone ABDIRAHMAN LAKE Primary Care [...] BASIC FAMIL Y Jun 24, 2009 112 [id number] [phone] ABHILASH GARAY PATIENT ANTHEM [place]BS [place] PREFERRED PROVIDER ORGANIZAT ION (PPO) FEP BASIC FAM Jun 24, 2009 112 [id number] [phone] ABHILASH GARAY PATIENT ANTHEM BCBS [place] F[place] PREFERRED PROVIDER ORGANIZAT ION (PPO) FEP BASIC FAM Jun 24, 2009 112 [id number] [phone] ABHILASH GARAY PATIENT [place] PREFERRED PROVIDER ORGANIZAT ION (PPO) FEP BASIC FAM Jun 24, 2009 112 [id number] [phone] ABHILASH GARAY PATIENT [place]BS [place] F[place] PREFERRED PROVIDER ORGANIZAT ION (PPO) FEP BASIC FAM Jun 24, 2009 112 [id number] [phone] ABHILASH GARAY PATIENT BCBS [place] F[place] PREFERRED PROVIDER ORGANIZAT ION (PPO) BASIC FAMIL Y Jun 24, 2009 112 [id number] [phone] ABHILASH GARAY PATIENT [place] PREFERRED PROVIDER ORGANIZAT ION (PPO) BASIC FAMIL Y Jun 24, 2009 112 [id number] [phone] ABHILASH GARAY PATIENT [place] F[place] PREFERRED PROVIDER ORGANIZAT ION (PPO) BASIC FAMIL Y Jun 24, 2009 112 [id number] ABHILASH GARAY PATIENT [place] F[place] DENTAL DENTAL INSURANCE BASIC Jul 12, 2009 DENTAL [id number] ABHILASH GARAY PATIENT [place] F[place] PREFERRED PROVIDER ORGANIZAT ION (PPO) BASIC FAMIL Y Jun 24, 2009 [id number] ABHILASH GARAY PATIENT [employer] FEP ([id number]) PRESCRIPT ION FEPRX Jun 24, 2009 [id number] [phone] ABHILASH GARAY PATIENT [place] FEP BCBS PRESCRIPT ION CAREM ARK FEPRX PLAN Nov 21, 2021 [id number] ABHILASH GARAY PATIENT [employer] FEPRX PLAN PRESCRIPT ION CAREM ARK FEPRX Nov 21, 2021 [id number] ABHILASH GARAY PATIENT [employer]-F EP BCBS PRESCRIPT ION FEP CAREM ARK Nov 21, 2021 [id number] ABHILASH GARAY PATIENT [employer]-F EP BCBS PRESCRIPT ION FEP Jun 23, 2010 [id number] RUBI GARAYNETH PATIENT MEDICARE (WN) MEDICARE () PART A Feb 22, 2020 PART A [id number] [phone] ABHILASH GARAY PATIENT MEDICARE (WN) MEDICARE () PART A Feb 22, 2020 PART A [id number] ABHILASH GARAY PATIENT MEDICARE (WNR) MEDICARE (M) PART A Feb 22, 2020 PART A [id number] ABHILASH GARAY PATIENT MEDICARE (WNR) MEDICARE (M) PART A Feb 22, 2020 PART A [id number] [id number] ABHILASH GARAY PATIENT MEDICARE (WNR) MEDICARE (M) PART A Feb 22, 2020 PART A [id number] ABHILASH GARAY PATIENT Selected Encounter This section includes the information on record at [place] for the Encounter. Date/Time Encounter Type Encounter Description Reason Provider Source Jul 14, 2023 11:00 AM EXERCISE CLASS HEALTH/WELLBEING SRVS ICD-10-CM Y93.42 Activity, PAT Yoder [place] IHE Encounter Template Text not used by [place] Assessments - Encounter Diagnoses This section includes the primary and secondary diagnoses documented for the Encounter. Date/Time Primary/Secondary Diagnosis Diagnosis Name Provider Source Jul 14, 2023 03:18 PM PRIMARY Activity, PEDRO Yoder [facility] [place] [facility] Plan of Treatment: Future Appointments (+ 6 months) and Future Tests (+/- 45 days) The Plan of Treatment section includes future care activities for the patient from all [place] treatmentfacilities. This section includes future appointments and future orders which are active, pending or scheduled. Future Appointments This section includes appointments that were scheduled to occur 6 months from the date of the Encounter, up to a maximum of 20 appointments. The data comes from all [place] treatment facilities. Appointment Date/Time Appointment Type Appointme nt Facility Name Jul 17, 2023 01:00 PM AMBULATORY - MEDICINE [place] [facility] [place] [facility] Jul 24, 2023 01:00 PM AMBULATORY - MEDICINE [place] [facility] [place] [facility] Jul 28, 2023 11:00 AM AMBULATORY - MEDICINE [place] [facility] [place] [place] [facility] Jul 31, 2023 01:00 PM AMBULATORY - MEDICINE [place] [facility] [place] [facility] Aug 01, 2023 11:00 AM AMBULATORY - MEDICINE [place] [facility] [place] [place] [facility] Aug 04, 2023 11:00 AM AMBULATORY - MEDICINE [place] [facility] [place] [place] [facility] Aug 07, 2023 01:00 PM AMBULATORY - MEDICINE [place] [facility] [place] [place] [facility] Aug 12, 2023 11:00 AM AMBULATORY - MEDICINE [place] [facility] [place] [place] [facility] Aug 14, 2023 01:00 PM AMBULATORY - MEDICINE [place] [facility] [place] [place] [facility] Aug 18, 2023 11:00 AM AMBULATORY - MEDICINE [place] [facility] [place] [place] [facility] Aug 21, 2023 01:00 PM AMBULATORY - MEDICINE [place] [facility] [place] [facility] Aug 22, 2023 08:00 AM [facility] Aug 25, 2023 11:00 AM AMBULATORY - MEDICINE [place] [facility] Aug 28, 2023 01:00 PM AMBULATORY - MEDICINE [place] [facility] [place] [facility] Sep 01, 2023 11:00 AM AMBULATORY - MEDICINE [place] [facility] [place] [facility] Sep 04, 2023 01:00 PM AMBULATORY - MEDICINE [place] [facility] [place] [place] [facility] Sep 08, 2023 11:00 AM AMBULATORY - MEDICINE [place] [facility] [place] [place] [facility] Sep 11, 2023 01:00 PM AMBULATORY - MEDICINE [place] [facility] [place] [place] [facility] Sep 16, 2023 11:00 AM AMBULATORY - MEDICINE [place] [facility] [place] [place] [facility] Sep 29, 2023 11:00 AM AMBULATORY - MEDICINE [place] [facility] [place] [place] [facility] Social History: Smoking Status (Most current) and Tobacco Use (All prior to encounter date) This section includes the most current, and the historical, smoking and tobacco- related health factors from the [place] facility where the Encounter took place. Current Smoking Status This section includes the most current smoking, or tobacco-related health factor, from the [place] facility where the Encounter took place. Date/Time Current Smoking Status Comment Odalis casey Apr 08, 2023 09:12 AM VA-TOBACCO [facility] [place] [facility] Tobacco Use History This section includes a history of the smoking, or tobacco-related health factors, that were collected on or before the date of the Encounter. The data comes from the [place] facility where the Encounter took place. Date/Time Smoking Status/Tobacco Use Comment Gilberto boston Aug 09, 2021 09:20 AM [place]-TOBACCO NEVER USED [facility] Encounter Notes: All associated encounter notes This section contains the clinical notes associated to the Encounter. Date/Time Encounter Note(s) Provider Source Jul 14, 2023 12:30 PM RECREATIONAL THERA PY NOTE: LOCAL TITLE: YOGA WELLBEING STANDARD TITLE: RECREATIONAL THERAPY NOTE DATE OF NOTE: JUL 14, 2023@12:30 ENTRY DATE: JUL 14, 2023@15:15:03 AUTHOR: MARY KATE MOORE EXP COSIGNER: URGENCY: [...] triangle pose, wide leg forward bend variations, [place] 2, extended side angle pose, [place] 1, plank, cobra, locust, downward facing dog, wisdom pose, contralateral limb raises, head to knee pose, bridge, reclined twist, knees to chest; Systematic Relaxation; and Gratitude. Modifications were geared toward the O'Neals's individual needs and preferences. O'Neals was one of six participants in Group Yoga. He practiced all the postures offered, using a chair, yoga blocks and a yoga strap for support as needed. O'Neals will return to class as his schedule allows. /yunior/ MARY KATE MOORE [id number] Telemetry Nurse Signed: 07/14/2023 15:34 MARY KATE MOORE [facility]
--- OUTSIDE RECORDS SUMMARY | 2024-06-29 18:50 | XMS_ITS | Encounter Summary ---
Author Name [facility] [facility] [place] [facility] [place] Address [address] [place] [address] Care Team Providers Care Senior Project Architect Name Role Phone ABDIRAHMAN LAKE Primary Care [...] BASIC FAMIL Y Jun 24, 2009 [id number] [phone] ABHILASH GARAY PATIENT ANTHEM BCBS [place] F[place] PREFERRED PROVIDER ORGANIZAT ION (PPO) FEP BASIC FAM Jun 24, 2009 112 [id number] [phone] ABHILASH GARAY PATIENT ANTHEM [place] PREFERRED PROVIDER ORGANIZAT ION (PPO) FEP BASIC FAM Jun 24, 2009 112 [id number] [phone] ABHILASH GARAY PATIENT [place] PREFERRED PROVIDER ORGANIZAT ION (PPO) FEP BASIC FAM Jun 24, 2009 112 [id number] [phone] ABHILASH GARAY PATIENT [place] PREFERRED PROVIDER ORGANIZAT ION (PPO) FEP BASIC FAM Jun 24, 2009 112 [id number] [phone] ABHILASH GARAY PATIENT [place] F[place] PREFERRED PROVIDER ORGANIZAT ION (PPO) BASIC FAMIL Y Jun 24, 2009 [id number] ABHILASH GARAY PATIENT [place] PREFERRED PROVIDER ORGANIZAT ION (PPO) BASIC FAMIL Y Jun 24, 2009 [id number] 62 ABHILASH GARAY PATIENT [place] PREFERRED PROVIDER ORGANIZAT ION (PPO) BASIC FAMIL Y Jun 24, 2009 112 [id number] [phone] ABHILASH GARAY PATIENT [place] F[place] DENTAL DENTAL INSURANCE BASIC Jul 12, 2009 DENTAL [id number] ABHILASH GARAY PATIENT [place] PREFERRED PROVIDER ORGANIZAT ION (PPO) BASIC FAMIL Y Jun 24, 2009 [id number] [phone] ABHILASH GARAY PATIENT [employer] FEP ([id number]) PRESCRIPT ION FEPRX Jun 24, 2009 [id number] [phone] ABHILASH GARAY PATIENT [employer] FEP BCBS PRESCRIPT ION CAREM ARK FEPRX PLAN Nov 21, 2021 [id number] ABHILASH GARAY PATIENT [employer] FEPRX PLAN PRESCRIPT ION CAREM ARK FEPRX Nov 21, 2021 [id number] ABHILASH GARAY PATIENT [employer]-F EP BCBS PRESCRIPT ION FEP CAREM ARK Nov 21, 2021 [id number] ABHILASH GARAY PATIENT [employer]-F EP BCBS PRESCRIPT ION FEP Jun 23, 2010 [id number] RUBI GARAYNETH PATIENT MEDICARE (WN) MEDICARE () PART A Feb 22, 2020 PART A [id number] ABHILASH GARAY PATIENT MEDICARE (WN) MEDICARE () PART A Feb 22, 2020 PART A [id number] ABHILASH GARAY PATIENT MEDICARE (WNR) MEDICARE (M) PART A Feb 22, 2020 PART A [id number] ABHILASH GARAY PATIENT MEDICARE (WNR) MEDICARE (M) PART A Feb 22, 2020 PART A [id number] [id number] [phone] ABHILASH GARAY PATIENT MEDICARE (WNR) MEDICARE (M) PART A Feb 22, 2020 PART A [id number] ABHILASH GARAY PATIENT Selected Encounter This section includes the information on record at [place] for the Encounter. Date/Time Encounter Type Encounter Description Reason Provider Source Sep 11, 2023 01:00 PM EXERCISE CLASS HEALTH/WELLBEING SRVS ICD-10-CM Y93.42 Activity, PAT Yoder [place] IHFran Encounter Template Text not used by [place] Assessments - Encounter Diagnoses This section includes the primary and secondary diagnoses documented for the Encounter. Date/Time Primary/Secondary Diagnosis Diagnosis Name Provider Source Sep 11, 2023 03:50 PM PRIMARY Activity, PEDRO Yoder [facility] [place] [facility] Plan of Treatment: Future Appointments (+ [...] Appointment Type Appointme nt Facility Name Sep 16, 2023 11:00 AM AMBULATORY - MEDICINE [place] [facility] Sep 29, 2023 11:00 AM AMBULATORY - MEDICINE [place] [facility] Oct 02, 2023 01:00 PM AMBULATORY - MEDICINE [place] [facility] Oct 06, 2023 11:00 AM AMBULATORY - MEDICINE [place] [facility] Oct 06, 2023 12:40 PM AMBULATORY - MEDICINE [place] [facility] Oct 09, 2023 01:00 PM AMBULATORY - MEDICINE [place] [facility] [place] [place] [facility] Oct 13, 2023 11:00 AM AMBULATORY - MEDICINE [place] [facility] [place] [place] [facility] Oct 16, 2023 01:00 PM AMBULATORY - MEDICINE [place] [facility] [place] [place] [facility] Oct 20, 2023 11:00 AM AMBULATORY - MEDICINE [place] [place] [facility] October 23, 2023 01:00 PM AMBULATORY - MEDICINE [place] [facility] [place] [place] [facility] October 27, 2023 11:00 AM AMBULATORY - MEDICINE [place] [facility] [place] [place] [facility] November 03, 2023 11:00 AM AMBULATORY - MEDICINE [place] [facility] [place] [place] [facility] November 03, 2023 01:00 PM AMBULATORY - MEDICINE [place] [place] [facility] November 06, 2023 01:00 PM AMBULATORY - MEDICINE [place] [place] [facility] November 06, 2023 02:00 PM AMBULATORY - MEDICINE [place] [place] [facility] November 10, 2023 11:00 AM AMBULATORY - MEDICINE [place] [place] [facility] November 13, 2023 10:30 AM AMBULATORY - MEDICINE [place] [place] [facility] November 18, 2023 11:00 AM AMBULATORY - MEDICINE [place] [place] [facility] November 20, 2023 10:30 AM AMBULATORY - MEDICINE [place] [place] [facility] November 20, 2023 01:00 PM AMBULATORY - MEDICINE [place] [place] [facility] Social History: Smoking Status (Most current) [...] 08, 2023 09:12 AM VA-TOBACCO NEVER USED [place] [facility] [place] [facility] Tobacco Use History This section includes a history of the smoking, or tobacco-related health factors, that were collected on or before the date of the Encounter. The data comes from the [place] facility where the Encounter took place. Date/Time Smoking Status/Tobacco Use Comment Gilberto boston Aug 09, 2021 09:20 AM [place]-TOBACCO NEVER USED [facility] Encounter Notes: All associated encounter notes This section contains the clinical notes associated to the Encounter. Date/Time Encounter Note(s) Provider Source Sep 11, 2023 02:00 PM RECREATIONAL THERA PY NOTE: LOCAL TITLE: YOGA WELLBEING STANDARD TITLE: RECREATIONAL THERAPY NOTE DATE OF NOTE: SEP 11, 2023@14:00 ENTRY DATE: SEP 11, 2023@15:49:32 AUTHOR: MARY KATE MOORE EXP COSIGNER: URGENCY: STATUS: COMPLETED Group Yoga Class Total time: 60 minutes Class Focus: Breath awareness, mindful movement, relaxation, and gratitude to balance the nervous system and enhance overall well-being. The Practice: 3-part breath Pranayama for utilizing more of the lungs and calming the nervous system; postures that included, but were not limited to, moving warm-up, half sun salutation, sun salutation A variation, tree, triangle pose, wide leg forward bend, [place] 2, Extended Side Angle Pose, Intense Side Stretch, [place] 1, plank, cobra, locust, downward facing dog, wisdom pose, contralateral limb raises, head to knee pose, bridge, reclined twist, and knees to chest; Systematic Relaxation; and Gratitude. Modifications were geared toward the 's individual needs and preferences. Waverly was one of nine participants in Group Yoga. He practiced all the postures offered, modifying according to his needs. He practiced excellent self-care and used his breath as a tool to enhance his practice. He will return to class as his schedule allows. /yunior/ MARY KATE MOORE, [id number] Entry Level Drafter Signed: 09/11/2023 15:55 MARY KATE MOORE [facility]
--- OUTSIDE RECORDS SUMMARY | 2024-06-29 18:50 | XMS_ITS | Encounter Summary ---
Author Name [facility] [place] Address [address] [place] [address] Care Team Providers Care Van Owner Operator Name Role Phone ABDIRAHMAN LAKE Primary [...] BASIC FAMIL Y Jun 24, 2009 112 [id number] [phone] ABHILASH GARAY PATIENT ANTHEM BCBS [place] FEP PREFERRED PROVIDER ORGANIZAT ION (PPO) FEP BASIC FAM Jun 24, 2009 112 [id number] [phone] ABHILASH GARAY PATIENT ANTHEM [place] PREFERRED PROVIDER ORGANIZAT ION (PPO) FEP BASIC FAM Jun 24, 2009 112 [id number] [phone] ABHILASH GARAY PATIENT [place] PREFERRED PROVIDER ORGANIZAT ION (PPO) FEP BASIC FAM Jun 24, 2009 112 [id number] [phone] ABHILASH GARAY PATIENT [place] PREFERRED PROVIDER ORGANIZAT ION (PPO) FEP BASIC FAM Jun 24, 2009 112 [id number] [phone] ABHILASH GARAY PATIENT [place] PREFERRED PROVIDER ORGANIZAT ION (PPO) BASIC FAMIL Y Jun 24, 2009 [id number] ABHILASH GARAY PATIENT [place] F[place] PREFERRED PROVIDER ORGANIZAT ION (PPO) BASIC FAMIL Y Jun 24, 2009 [id number] ABHILASH GARAY PATIENT [place] PREFERRED PROVIDER ORGANIZAT ION (PPO) BASIC FAMIL Y Jun 24, 2009 112 [id number] [phone] ABHILASH GARAY PATIENT [place] F[place] DENTAL DENTAL INSURANCE BASIC Jul 12, 2009 DENTAL [id number] ABHILASH GARAY PATIENT [place] PREFERRED PROVIDER ORGANIZAT ION (PPO) BASIC FAMIL Y Jun 24, 2009 [id number] ABHILASH GARAY PATIENT [employer] FEP ([id number]) PRESCRIPT ION FEPRX Jun 24, 2009 [id number] [phone] ABHILASH GARAY PATIENT [employer] FEP BCBS PRESCRIPT ION CAREM ARK FEPRX PLAN Nov 21, 2021 [id number] ABHILASH GARAY PATIENT [employer] FEPRX PLAN PRESCRIPT ION CAREM ARK FEPRX Nov 21, 2021 [id number] ABHILASH GARAY PATIENT [employer]-F EP BCBS PRESCRIPT ION FEP CAREM ARK Nov 21, 2021 [id number] ABHILASH GARAY PATIENT [employer]-F EP BCBS PRESCRIPT ION FEP Jun 23, 2010 [id number] ABHILASH GARAY PATIENT MEDICARE (WN) MEDICARE () PART A Feb 22, 2020 PART A [id number] [id number] [phone] ABHILASH GARAY PATIENT MEDICARE ([facility]) MEDICARE () PART A Feb 22, 2020 PART A [id number] ABHILASH GARAY PATIENT MEDICARE (WNR) MEDICARE (M) PART A Feb 22, 2020 PART A [id number] NV71 [phone] ABHILASH GARAY PATIENT MEDICARE (WNR) MEDICARE (M) PART A Feb 22, 2020 PART A [id number] ABHILASH GARAY PATIENT MEDICARE (WNR) MEDICARE (M) PART A Feb 22, 2020 PART A [id number] ABHILASH GARAY PATIENT Selected Encounter This section includes the information on record at [place] for the Encounter. Date/Time Encounter Type Encounter Description Reason Pro vider Source Oct 03, 2023 12:00 PM Outpatient Encounter COMMUNITY CARE CONSULT IHE Encounter Template Text not used by [place] Plan of Treatment: Future Appointments (+ 6 months) and Future Tests (+/- 45 days) The Plan of Treatment section includes future care activities for the patient from all [place] treatmentfacilities. This section includes future appointments and future orders which are active, pending or scheduled. Future Appointments This section includes appointments that were scheduled to occur 6 months from the date of the Encounter, up to a maximum of 20 appointments. The data comes from all [place] treatment facilities. Appointment Date/Time Appointment Type Appointme nt Facility Name Oct 06, 2023 11:00 AM AMBULATORY [place]ICINE [place] [facility] Oct 06, 2023 12:40 PM AMBULATORY - MEDICINE [place] [facility] Oct 09, 2023 01:00 PM AMBULATORY - MEDICINE [place] [facility] Oct 13, 2023 11:00 AM AMBULATORY - MEDICINE [place] [facility] Oct 16, 2023 01:00 PM AMBULATORY - MEDICINE [place] [facility] Oct 20, 2023 11:00 AM AMBULATORY - MEDICINE [place] [facility] October 23, 2023 01:00 PM AMBULATORY - MEDICINE [place] [facility] October 27, 2023 11:00 AM AMBULATORY - MEDICINE [place] [facility] November 03, 2023 11:00 AM AMBULATORY - MEDICINE [place] [facility] November 03, 2023 01:00 PM AMBULATORY - MEDICINE [place] [facility] November 06, 2023 01:00 PM AMBULATORY - MEDICINE [place] [facility] November 06, 2023 02:00 PM AMBULATORY - MEDICINE [place] [place] [facility] November 10, 2023 11:00 AM AMBULATORY - MEDICINE [place] [facility] November 13, 2023 10:30 AM AMBULATORY - MEDICINE [place] [facility] November 18, 2023 11:00 AM AMBULATORY - MEDICINE [place] [facility] November 20, 2023 10:30 AM AMBULATORY - MEDICINE [place] [facility] November 20, 2023 01:00 PM AMBULATORY - MEDICINE [place] [place] [facility] Nov 27, 2023 02:00 PM AM[place]ULATORY - [place]IC[place] Dec 02, 2023 11:00 AM AMBULATORY - MEDICINE [place] [place] [facility] Dec 02, 2023 02:30 PM AMBULATORY - MEDICINE [place] [facility] [place] [facility] Social History: Smoking Status (Most current) and Tobacco Use (All prior to encounter date) This section includes the most current, and the historical, smoking and tobacco- related health factors from the [place] facility where the Encounter took place. Current Smoking Status This section includes the most current smoking, or tobacco-related health factor, from the [place] facility where the Encounter took place. Date/Time Current Smoking Status Comment Facil carmela Apr 08, 2023 09:12 AM VA-TOBACCO NEVER USED [facility] Tobacco Use History This section includes a history of the smoking, or tobacco-related health factors, that were collected on or before the date of the Encounter. The data comes from the [place] facility where the Encounter took place. Date/Time Smoking Status/Tobacco Use Comment F darvin Aug 09, 2021 09:20 AM VA-TOBACCO NEVER USED [facility] Encounter Notes: All associated encounter notes This section contains the clinical notes associated to the Encounter. Date/Time Encounter Note(s) Provider Source Oct 03, 2023 12:00 PM NONVA CONSULT: LOCAL TITLE: COMMUNITY CARE-CONSULT RESULT NOTE STANDARD TITLE: NONVA CONSULT DATE OF NOTE: OCT 03, 2023@12:00 ENTRY DATE: DEC 01, 2023@12:09:42 AUTHOR: MARY KATE GOODSON COSIGNER: URGENCY: STATUS: COMPLETED VistA Imaging - Scanned Document SCANNED DOCUMENT SIGNATURE NOT REQUIRED Electronically Filed: 12/01/2023 by: MARY KATE GOODSON SUPERVISOR FISH HATCHERY MARY KATE GOODSON [place] [facility]
--- OUTSIDE RECORDS SUMMARY | 2024-06-29 18:50 | XMS_ITS ---
Author Name [facility] [place] Address [address] [place] [address] Care Team Providers Care Ordnance Keeper Name Role Phone ABDIRAHMAN LAKE Primary Care [...] BASIC FAMIL Y Jun 24, 2009 [id number] [phone] ABHILASH GARAY PATIENT ANTHEM BCBS [place] FEP PREFERRED PROVIDER ORGANIZAT ION (PPO) FEP BASIC FAM Jun 24, 2009 112 [id number] [phone] ABHILASH GARAY PATIENT ANTHEM BCBS [place] FEP PREFERRED PROVIDER ORGANIZAT ION (PPO) FEP BASIC FAM Jun 24, 2009 112 [id number] [phone] ABHILASH GARAY PATIENT ANTHEM [place] PREFERRED PROVIDER ORGANIZAT ION (PPO) FEP BASIC FAM Jun 24, 2009 112 [id number] [phone] ABHILASH GARAY PATIENT BCBS [place] FEP PREFERRED PROVIDER ORGANIZAT ION (PPO) FEP BASIC FAM Jun 24, 2009 112 [id number] [phone] ABHILASH GARAY PATIENT BCBS [place] FEP PREFERRED PROVIDER ORGANIZAT ION (PPO) BASIC FAMIL Y Jun 24, 2009 112 [id number] ABHILASH GARAY PATIENT [place] PREFERRED PROVIDER ORGANIZAT ION (PPO) BASIC FAMIL Y Jun 24, 2009 112 [id number] ABHILASH GARAY PATIENT [place] F[place] PREFERRED PROVIDER ORGANIZAT ION (PPO) BASIC FAMIL Y Jun 24, 2009 112 [id number] [phone] ABHILASH GARAY PATIENT [place] F[place] DENTAL DENTAL INSURANCE BASIC Jul 12, 2009 DENTAL [id number] ABHILASH GARAY PATIENT [place] F[place] PREFERRED PROVIDER ORGANIZAT ION (PPO) BASIC FAMIL Y Jun 24, 2009 [id number] ABHILASH GARAY PATIENT [place] FEP ([id number]) PRESCRIPT ION FEPRX Jun 24, 2009 [id number] [phone] ABHILASH GARAY PATIENT [place] FEP BCBS PRESCRIPT ION CAREM ARK FEPRX PLAN Nov 21, 2021 [id number] ABHILASH GARAY PATIENT [place] FEPRX PLAN PRESCRIPT ION CAREM ARK FEPRX Nov 21, 2021 [id number] ABHILASH GARAY PATIENT [place]-F EP BCBS PRESCRIPT ION FEP CAREM ARK Nov 21, 2021 [id number] ABHILASH GARAY PATIENT [place]-F EP BCBS PRESCRIPT ION FEP Jun 23, 2010 [id number] ABHILASH GARAY PATIENT MEDICARE (WN) MEDICARE () PART A Feb 22, 2020 PART A [id number] [phone] ABHILASH GARAY PATIENT MEDICARE ([facility]) MEDICARE () PART A Feb 22, 2020 PART A [id number] [phone] ABHILASH GARAY PATIENT MEDICARE (WNR) MEDICARE (M) PART A Feb 22, 2020 PART A [id number] [phone] ABHILASH GARAY PATIENT MEDICARE (WNR) MEDICARE (M) PART A Feb 22, 2020 PART A [id number] [phone] ABHILASH GARAY PATIENT MEDICARE (WNR) MEDICARE (M) PART A Feb 22, 2020 PART A [id number] ABHILASH GARAY PATIENT Selected Encounter This section includes the information on record at [place] for the Encounter. Date/Time Encounter Type Encounter Description Reason Pro vider Source Sep 26, 2023 12:00 PM Outpatient Encounter COMMUNITY CARE CONSULT IHE Encounter Template Text not used by [place] Plan of Treatment: Future Appointments (+ 6 months) and Future Tests (+/- 45 days) The Plan of Treatment section includes future care activities for the patient from all [place] treatmentfacilities. This section includes future appointments and future orders which are active, pending or scheduled. Future Appointments This section includes appointments that were scheduled to occur 6 months from the date of the Encounter, up to a maximum of 20 appointments. The data comes from all [place] treatment facilities. Appointment Date/Time Appointment Type Appointme nt Facility Name Sep 29, 2023 11:00 AM AMBULATORY - MEDICINE [place] [facility] [place] [facility] Oct 02, 2023 01:00 PM AMBULATORY - MEDICINE [place] [facility] [place] [facility] Oct 06, 2023 11:00 AM AMBULATORY - MEDICINE [place] [facility] [facility] Oct 06, 2023 12:40 PM AMBULATORY - MEDICINE [place] [facility] [place] [facility] Oct 09, 2023 01:00 PM AMBULATORY - MEDICINE [place] [facility] [place] [facility] Oct 13, 2023 11:00 AM AMBULATORY - MEDICINE [place] [facility] [place] [facility] Oct 16, 2023 01:00 PM AMBULATORY - MEDICINE [place] [facility] [facility] Oct 20, 2023 11:00 AM AMBULATORY - MEDICINE [place] [facility] [place] [facility] October 23, 2023 01:00 PM AMBULATORY - MEDICINE [place] [facility] [place] [facility] October 27, 2023 11:00 AM AMBULATORY - MEDICINE [place] [facility] [place] [facility] November 03, 2023 11:00 AM AMBULATORY - MEDICINE [place] [facility] [facility] November 03, 2023 01:00 PM AMBULATORY - MEDICINE [place] [facility] [facility] November 06, 2023 01:00 PM AMBULATORY - MEDICINE [place] [facility] [place] [facility] November 06, 2023 02:00 PM AMBULATORY - MEDICINE [place] [facility] [facility] November 10, 2023 11:00 AM AMBULATORY - MEDICINE [place] [facility] [place] [facility] November 13, 2023 10:30 AM AMBULATORY - MEDICINE [place] [facility] [facility] November 18, 2023 11:00 AM AMBULATORY - MEDICINE [place] [facility] [place] [facility] November 20, 2023 10:30 AM AMBULATORY - MEDICINE [place] [facility] [facility] November 20, 2023 01:00 PM AMBULATORY - MEDICINE [place] [facility] [facility] Nov 27, 2023 02:00 PM AMBULATORY - MEDICINE [facility] Social History: Smoking Status (Most current) and Tobacco Use (All prior to encounter date) This section includes the most current, and the historical, smoking and tobacco- related health factors from the [place] facility where the Encounter took place. Current Smoking Status This section includes the most current smoking, or tobacco-related health factor, from the [place] facility where the Encounter took place. Date/Time Current Smoking Status Comment Facil carmela Apr 08, 2023 09:12 AM VA-TOBACCO NEVER USED [facility] Tobacco Use History This section includes a history of the smoking, or tobacco-related health factors, that were collected on or before the date of the Encounter. The data comes from the [place] facility where the Encounter took place. Date/Time Smoking Status/Tobacco Use Comment F darvin Aug 09, 2021 09:20 AM [facility] Encounter Notes: All associated encounter notes This section contains the clinical notes associated to the Encounter. Date/Time Encounter Note(s) Provider Source Sep 26, 2023 12:00 PM NONVA CONSULT: LOCAL TITLE: COMMUNITY CARE-CONSULT RESULT NOTE STANDARD TITLE: NONVA CONSULT DATE OF NOTE: SEP 26, 2023@12:00 ENTRY DATE: DEC 01, 2023@12:11:36 AUTHOR: MARY KATE GOODSON COSIGNER: URGENCY: STATUS: COMPLETED VistA Imaging - Scanned Document SCANNED DOCUMENT SIGNATURE NOT REQUIRED Electronically Filed: 12/01/2023 by: MARY KATE GOODSON WAITER/WAITRESS HEAD MARY KATE GOODSON [place] [facility]
--- OUTSIDE RECORDS SUMMARY | 2024-06-29 18:50 | XMS_ITS ---
Author Name [facility] [place] [facility] [place] Address [address] [place] [address] Care Team Providers Care Clothes Presser Name Role Phone ABDIRAHMAN LAKE Primary Care [...] BASIC FAMIL Y Jun 24, 2009 [id number] [phone] ABHILASH GARAY PATIENT ANTHEM BCBS [place] F[place] PREFERRED PROVIDER ORGANIZAT ION (PPO) FEP BASIC FAM Jun 24, 2009 112 [id number] [phone] ABHILASH GARAY PATIENT ANTHEM BCBS [place] FEP PREFERRED PROVIDER ORGANIZAT ION (PPO) FEP BASIC FAM Jun 24, 2009 112 [id number] [phone] ABHILASH GARAY PATIENT [place] PREFERRED PROVIDER ORGANIZAT ION (PPO) FEP BASIC FAM Jun 24, 2009 112 [id number] [phone] ABHILASH GARAY PATIENT [place] PREFERRED PROVIDER ORGANIZAT ION (PPO) FEP BASIC FAM Jun 24, 2009 112 [id number] [phone] ABHILASH GARAY PATIENT BCBS [place] FEP PREFERRED PROVIDER ORGANIZAT ION (PPO) BASIC FAMIL Y Jun 24, 2009 [id number] ABHILASH GARAY PATIENT [place] PREFERRED PROVIDER ORGANIZAT ION (PPO) BASIC FAMIL Y Jun 24, 2009 112 [id number] ABHILASH GARAY PATIENT [place] PREFERRED PROVIDER ORGANIZAT ION (PPO) BASIC FAMIL Y Jun 24, 2009 112 [id number] [phone] ABHILASH GARAY PATIENT [place] F[place] DENTAL DENTAL INSURANCE BASIC Jul 12, 2009 DENTAL [id number] ABHILASH GARAY PATIENT [place] PREFERRED PROVIDER ORGANIZAT ION (PPO) BASIC FAMIL Y Jun 24, 2009 112 [id number] [phone] ABHILASH GARAY PATIENT [place] FEP ([id number]) PRESCRIPT ION FEPRX Jun 24, 2009 [id number] [phone] ABHILASH GARAY PATIENT [place] FEP BCBS PRESCRIPT ION CAREM ARK FEPRX PLAN Nov 21, 2021 [id number] ABHILASH GARAY PATIENT [place] FEPRX PLAN PRESCRIPT ION CAREM ARK FEPRX Nov 21, 2021 [id number] ABHILASH GARAY PATIENT [place]-F EP BCBS PRESCRIPT ION FEP CAREM ARK Nov 21, 2021 [id number] ABHILASH GARAY PATIENT [place]-F EP BCBS PRESCRIPT ION FEP Jun 23, 2010 [id number] ABHILASH GARAY PATIENT MEDICARE (WN) MEDICARE () PART A Feb 22, 2020 PART A [id number] ABHILASH GARAY PATIENT MEDICARE ([facility]) MEDICARE () PART A Feb 22, 2020 PART A [id number] ABHILASH GARAY PATIENT MEDICARE (WNR) MEDICARE (M) PART A Feb 22, 2020 PART A [id number] [phone] ABHILASH GARAY PATIENT MEDICARE (WNR) MEDICARE (M) PART A Feb 22, 2020 PART A [id number] ABHILASH GARAY PATIENT MEDICARE (WNR) MEDICARE (M) PART A Feb 22, 2020 PART A [id number] ABHILASH GARAY PATIENT Selected Encounter This section includes the information on record at [place] for the Encounter. Date/Time Encounter Type Encounter Description Reason Pro vider Source Dec 01, 2023 10:14 AM Outpatient Encounter TELEPHONE PRIMARY CARE IHE Encounter Template Text not used by [place] Plan of Treatment: Future Appointments (+ 6 months) and Future Tests (+/- 45 days) The Plan of Treatment section includes future care [facility] [place] [facility] This section includes future appointments and [...] 02, 2023 11:00 AM AMBULATORY - MEDICINE [place] [facility] [place] [facility] Dec 02, 2023 02:30 PM AMBULATORY - MEDICINE [place] [facility] [facility] Dec 04, 2023 01:00 PM AMBULATORY - MEDICINE [place] [facility] [facility] Dec 08, 2023 11:00 AM AMBULATORY - MEDICINE [place] [facility] [facility] Dec 11, 2023 01:00 PM AMBULATORY - MEDICINE [place] [facility] [facility] Dec 15, 2023 11:00 AM AMBULATORY - MEDICINE [place] [facility] [facility] Dec 15, 2023 03:00 PM AMBULATORY - MEDICINE [place] [facility] [facility] Dec 17, 2023 02:00 PM AMBULATORY - REHAB [facility] Dec 18, 2023 01:00 PM AMBULATORY - MEDICINE [place] [facility] [place] [facility] Dec 22, 2023 10:30 AM [facility]ULATORY [facility] Dec 31, 2023 08:15 PM AMBULATORY - MEDICINE [place] [facility] [facility] Jan 01, 2024 01:00 PM AMBULATORY - MEDICINE [place] [facility] [place] [facility] Jan 02, 2024 09:30 AM AM[place]ULATORY [place] Jan 07, 2024 03:00 PM AMBULATORY [place] [place] Jan 08, 2024 01:00 PM AMBULATORY - MEDICINE [place] [facility] [facility] Jan 09, 2024 11:00 AM AMBULATORY - MEDICINE [place] [facility] [facility] Jan 13, 2024 11:00 AM AMBULATORY - MEDICINE [place] [facility] [place] [facility] Jan 14, 2024 03:00 PM AMBULATORY - [facility] Jan 21, 2024 03:00 PM AMBULATORY - [place] [place] Jan 28, 2024 11:00 AM [facility] [place] [facility] Social History: Smoking Status (Most current) [...] 08, 2023 09:12 AM VA-TOBACCO NEVER USED [facility] Tobacco Use History This section includes a history of the smoking, or tobacco-related health factors, that were collected on or before the date of the Encounter. The data comes from the [place] facility where the Encounter took place. Date/Time Smoking Status/Tobacco Use Comment F acjaved Aug 09, 2021 09:20 AM [facility] Encounter Notes: All associated encounter notes This section contains the clinical notes associated to the Encounter. Date/Time Encounter Note(s) Provider Source Dec 01, 2023 10:14 AM TELEPHONE ENCOUNTE R NOTE: LOCAL TITLE: TELEPHONE NOTE/SPECIALTY CLINIC STANDARD TITLE: TELEPHONE ENCOUNTER NOTE DATE OF NOTE: DEC 01, 2023@10:14 ENTRY DATE: DEC 01, 2023@10:14:24 AUTHOR: MEREDITH HICKS EXP COSIGNER: URGENCY: STATUS: COMPLETED [place] is requesting supplies for CPAP: mask heated hose reservoir [place] is wondering if he needs to be refitted for the mask. Mask might be bad, but lasted about a week, then leaked again. Please call to discuss mask issue. /es/ MEREDITH HICKS LEAD PLATEN PRESS FEEDER Signed: 12/01/2023 10:17 Receipt Acknowledged By: 12/02/2023 10:09 /es/ JANIE STERLING RRT RESPIRATORY THERAPIST 12/02/2023 12:36 /es/ ALMA ROSA CLARK RESPIRATORY THERAPIST 12/02/2023 08:34 /es/ JANIE CARPIO CRT RESPIRATORY THERAPIST MEREDITH HICKS [facility]
--- OUTSIDE RECORDS SUMMARY | 2024-06-29 18:51 | XMS_ITS | Encounter Summary ---
Author Name [facility] [place] Address [address] [place] [address] Care Team Providers Care Bar And Filler Assembler Name Role Phone ABDIRAHMAN LAKE Primary Care [...] BASIC FAMIL Y Jun 24, 2009 [id number] [phone] ABHILASH GARAY PATIENT ANTHEM BCBS [place] FEP PREFERRED PROVIDER ORGANIZAT ION (PPO) FEP BASIC FAM Jun 24, 2009 112 [id number] [phone] ABHILASH GARAY PATIENT ANTHEM BCBS [place] FEP PREFERRED PROVIDER ORGANIZAT ION (PPO) FEP BASIC FAM Jun 24, 2009 112 [id number] [phone] ABHILASH GARAY PATIENT ANTHEM [place] PREFERRED PROVIDER ORGANIZAT ION (PPO) FEP BASIC FAM Jun 24, 2009 112 [id number] [phone] ABHILASH GARAY PATIENT [place] PREFERRED PROVIDER ORGANIZAT ION (PPO) FEP BASIC FAM Jun 24, 2009 112 [id number] [phone] ABHILASH GARAY PATIENT BCBS [place] FEP PREFERRED PROVIDER ORGANIZAT ION (PPO) BASIC FAMIL Y Jun 24, 2009 [id number] ABHILASH GARAY PATIENT [place] PREFERRED PROVIDER ORGANIZAT ION (PPO) BASIC FAMIL Y Jun 24, 2009 [id number] [phone] ABHILASH GARAY PATIENT [place] FEP PREFERRED PROVIDER ORGANIZAT ION (PPO) BASIC FAMIL Y Jun 24, 2009 112 [id number] ABHILASH GARAY PATIENT [place] DENTAL DENTAL INSURANCE BASIC Jul 12, 2009 DENTAL [id number] ABHILASH GARAY PATIENT [place] F[place] PREFERRED PROVIDER ORGANIZAT ION (PPO) BASIC FAMIL Y Jun 24, 2009 [id number] [phone] ABHILASH GARAY PATIENT [place] FEP ([id number]) PRESCRIPT ION FEPRX Jun 24, 2009 [id number] [phone] ABHILASH GARAY PATIENT [place] FEP BCBS PRESCRIPT ION CAREM ARK FEPRX PLAN Nov 21, 2021 [id number] ABHILASH GARAY PATIENT [place] FEPRX PLAN PRESCRIPT ION CAREM ARK FEPRX Nov 21, 2021 [id number] ABHILASH GARAY PATIENT [place]-F EP BCBS PRESCRIPT ION FEP CAREM ARK Nov 21, 2021 [id number] ABHILASH GARAY PATIENT [place]-F EP BCBS PRESCRIPT ION FEP Jun 23, 2010 [id number] RUBI GARAYNETH PATIENT MEDICARE (WN) MEDICARE () PART A Feb 22, 2020 PART A [id number] ABHILASH GARAY PATIENT MEDICARE (WN) MEDICARE () PART A Feb 22, 2020 PART A [id number] [phone] ABHILASH GARAY PATIENT MEDICARE (WNR) MEDICARE (M) PART A Feb 22, 2020 PART A [id number] [id number] [phone] ABHILASH GARAY PATIENT MEDICARE (WNR) MEDICARE (M) PART A Feb 22, 2020 PART A [id number] ABHILASH GARAY PATIENT MEDICARE (WNR) MEDICARE (M) PART A Feb 22, 2020 PART A [id number] [id number] [phone] ABHILASH GARAY PATIENT Selected Encounter This section includes the information on record at [place] for the Encounter. Date/Time Encounter Type Encounter Description Reason Provider Source Dec 08, 2023 11:00 AM EXERCISE CLASS HEALTH/WELLBEING SRVS ICD-10-CM Y93.42 Activity, APT [place] IHE Encounter Template Text not used by [place] Assessments - Encounter Diagnoses This section includes the primary and secondary diagnoses documented for the Encounter. Date/Time Primary/Secondary Diagnosis Diagnosis Name Provider Source Dec 09, 2023 02:45 PM PRIMARY Activity, PEDRO Yoder [facility] [place] [facility] Plan of Treatment: Future Appointments (+ 6 months) and Future Tests (+/- 45 days) The Plan of Treatment section includes future care activities for the patient from all [place] treatmentfacilities. This section includes future appointments and future orders which are active, pending or scheduled. Future Appointments This section includes appointments that were scheduled to occur 6 months from the date of the Encounter, up to a maximum of 20 appointments. The data comes from all [place] treatment facilities. Appointment Date/Time Appointment Type Appointme nt Facility Name Dec 11, 2023 01:00 PM AMBULATORY [place] [facility] [place] [facility] Dec 15, 2023 11:00 AM AMBULATORY [place] [facility] Dec 15, 2023 03:00 PM AM[place]ULATORY [place] [facility] Dec 17, 2023 02:00 PM AMBULATORY - REHAB [place] Dec 18, 2023 01:00 PM AMBULATORY - [place] [facility] Dec 22, 2023 10:30 AM [facility] Dec 31, 2023 08:15 PM AMBULATORY - MEDICINE [place] [facility] [facility] Jan 01, 2024 01:00 PM AMBULATORY - MEDICINE [place] [facility] [place] [facility] Jan 02, 2024 09:30 AM AMBULATORY - REHAB [place] [place] Jan 07, 2024 03:00 PM AMBULATORY - REHAB [place] [place] Jan 08, 2024 01:00 PM AMBULATORY - MEDICINE [place] [facility] [facility] Jan 09, 2024 11:00 AM AMBULATORY - MEDICINE [place] [facility] [place] [facility] Jan 13, 2024 11:00 AM AMBULATORY - MEDICINE [place] [facility] [place] [facility] Jan 14, 2024 03:00 PM AMBULATORY - [place] [place] Jan 21, 2024 03:00 PM AMBULATORY - RE[place]AB [place] [place] Jan 28, 2024 11:00 AM AM[place]ULATORY [place] [facility] Jan 30, 2024 08:00 AM [facility] Feb 02, 2024 02:00 PM AMBULATORY [place] [facility] [facility] Feb 04, 2024 11:00 AM AMBULATORY - MEDICINE [place] [facility] [facility] Feb 09, 2024 11:30 AM AMBULATORY [place]INE [place] [facility] Social History: Smoking Status (Most current) and Tobacco Use (All prior to encounter date) This section includes the most current, and the historical, smoking and tobacco- related health factors from the [place] facility where the Encounter took place. Current Smoking Status This section includes the most current smoking, or tobacco-related health factor, from the [place] facility where the Encounter took place. Date/Time Current Smoking Status Comment Facil ity Apr 08, 2023 09:12 AM [facility] Tobacco Use History This section includes a history of the smoking, or tobacco-related health factors, that were collected on or before the date of the Encounter. The data comes from the [place] facility where the Encounter took place. Date/Time Smoking Status/Tobacco Use Comment F acility Aug 09, 2021 09:20 AM VA-TOBACCO NEVER USED [facility] Encounter Notes: All associated encounter notes This section contains the clinical notes associated to the Encounter. Date/Time Encounter Note(s) Provider Source Dec 08, 2023 11:00 AM RECREATIONAL THERA PY NOTE: LOCAL TITLE: YOGA WELLBEING STANDARD TITLE: RECREATIONAL THERAPY NOTE DATE OF NOTE: DEC 08, 2023@11:00 ENTRY DATE: DEC 09, 2023@14:39:14 AUTHOR: MARY KATE MOORE EXP COSIGNER: URGENCY: [...] tree, triangle pose, wide leg forward bend, [place] 2, Extended Side Angle Pose, Intense Side Stretch, [place] 1, plank, cobra, locust, downward facing dog, wisdom pose, contralateral limb raises, head to knee pose, bridge, reclined twist, and knees to chest; Systematic Relaxation; and Gratitude. Modifications were geared toward the 's individual needs and preferences. was one of ten participants in Group Yoga. He reported his scoliosis was bothering him at the beginning of class and he modified his practice accordingly. He used his breath as a tool and listened to the needs of his body, resting when needed. He will return to class as his schedule allows. /yunior/ NINO [id number] Informal Waiter/Waitress Signed: 12/09/2023 14:55 MARY KATE MOORE [facility]
--- OUTSIDE RECORDS SUMMARY | 2024-06-29 18:51 | XMS_ITS | Encounter Summary ---
Author Name [facility] [place] Organization [facility] [place] [place] [facility] [place] Address [address] [place] [address] Care Team Providers Care Electrical Drafter Name Role Phone ABDIRAHMAN LAKE Primary Care [...] BASIC FAMIL Y Jun 24, 2009 112 [id number] [phone] ABHILASH GARAY PATIENT ANTHEM [place]BS [place] PREFERRED PROVIDER ORGANIZAT ION (PPO) FEP BASIC FAM Jun 24, 2009 112 [id number] [phone] ABHILASH GARAY PATIENT ANTHEM BCBS [place] F[place] PREFERRED PROVIDER ORGANIZAT ION (PPO) FEP BASIC FAM Jun 24, 2009 112 [id number] [phone] ABHILASH GARAY PATIENT ANTHEM [place] F[place] PREFERRED PROVIDER ORGANIZAT ION (PPO) FEP BASIC FAM Jun 24, 2009 112 [id number] [phone] ABHILASH GARAY PATIENT [place]BS [place] FEP PREFERRED PROVIDER ORGANIZAT ION (PPO) FEP BASIC FAM Jun 24, 2009 112 [id number] [phone] ABHILASH GARAY PATIENT BCBS [place] FEP PREFERRED PROVIDER ORGANIZAT ION (PPO) BASIC FAMIL Y Jun 24, 2009 112 [id number] ABHILASH GARAY PATIENT [place] PREFERRED PROVIDER ORGANIZAT ION (PPO) BASIC FAMIL Y Jun 24, 2009 112 [id number] ABHILASH GARAY PATIENT [place] FEP PREFERRED PROVIDER ORGANIZAT ION (PPO) BASIC FAMIL Y Jun 24, 2009 112 [id number] [phone] ABHILASH GARAY PATIENT [place] FEP DENTAL DENTAL INSURANCE BASIC Jul 12, 2009 DENTAL [id number] ABHILASH GARAY PATIENT [place] FEP PREFERRED PROVIDER ORGANIZAT ION (PPO) BASIC FAMIL Y Jun 24, 2009 112 [id number] [phone] ABHILASH GARAY PATIENT [place] FEP ([id number]) PRESCRIPT ION FEPRX Jun 24, 2009 [id number] [phone] ABHILASH GARAY PATIENT [place] FEP BCBS PRESCRIPT ION CAREM ARK FEPRX PLAN Nov 21, 2021 [id number] ABHILASH GARAY PATIENT [place] FEPRX PLAN PRESCRIPT ION CAREM ARK FEPRX Nov 21, 2021 [id number] ABHILASH GARAY PATIENT [place]-F EP BCBS PRESCRIPT ION FEP CAREM ARK Nov 21, 2021 [id number] ABHILASH GARAY PATIENT [place]-F EP BCBS PRESCRIPT ION FEP Jun 23, 2010 [id number] RUBI GARAYNETH PATIENT MEDICARE (WN) MEDICARE () PART A Feb 22, 2020 PART A [id number] ABHILASH GARAY PATIENT MEDICARE (WN) MEDICARE () PART A Feb 22, 2020 PART A [id number] ABHILASH GARAY PATIENT MEDICARE (WNR) MEDICARE (M) PART A Feb 22, 2020 PART A [id number] ABHILASH GARAY PATIENT MEDICARE (WNR) MEDICARE (M) PART A Feb 22, 2020 PART A [id number] ABHILASH GARAY PATIENT MEDICARE (WNR) MEDICARE (M) PART A Feb 22, 2020 PART A [id number] ABHILASH GARAY PATIENT Selected Encounter This section includes the information on record at MD for the Encounter. Date/Time Encounter Type Encounter Description Reason Provider Source Dec 04, 2023 01:00 PM EXERCISE CLASS HEALTH/WELLBEING SRVS ICD-10-CM Y93.42 Activity, PAT Yoder [place] IHFran Encounter Template Text not used by MD Assessments - Encounter Diagnoses This section includes the primary and secondary diagnoses documented for the Encounter. Date/Time Primary/Secondary Diagnosis Diagnosis Name Provider Source Dec 04, 2023 04:04 PM PRIMARY Activity, PEDRO Yoder [facility] [place] [facility] Plan of Treatment: Future Appointments [...] Appointment Type Appointme nt Facility Name Dec 08, 2023 11:00 AM AMBULATORY - MEDICINE [facility] [place] [facility] Dec 11, 2023 01:00 PM AMBULATORY - MEDICINE [place] [facility] [place] [facility] Dec 15, 2023 11:00 AM AMBULATORY - MEDICINE [place] [facility] [place] [facility] Dec 15, 2023 03:00 PM AMBULATORY - MEDICINE [facility] [place] [facility] Dec 17, 2023 02:00 PM AMBULATORY - [place] [place] Dec 18, 2023 01:00 PM AM[facility]ULATORY [place]ICINE [place] [facility] [place] [facility] Dec 22, 2023 10:30 AM [facility] Dec 31, 2023 08:15 PM AMBULATORY - MEDICINE [place] [facility] [place] [facility] Jan 01, 2024 01:00 PM AMBULATORY - MEDICINE [facility] [place] [place] [facility] Jan 02, 2024 09:30 AM AMBULATORY - [facility] [place] Jan 07, 2024 03:00 PM AMBULATORY - RE[facility]AB [facility] [place] Jan 08, 2024 01:00 PM AMBULATORY - MEDICINE [facility] [place] [facility] Jan 09, 2024 11:00 AM AMBULATORY - MEDICINE [facility] [place] [facility] Jan 13, 2024 11:00 AM AMBULATORY - MEDICINE [facility] [place] [place] [facility] Jan 14, 2024 03:00 PM AMBULATORY - [facility]AB [facility] [place] Jan 21, 2024 03:00 PM AMBULATORY - RE[facility]AB [facility] [place] Jan 28, 2024 11:00 AM AMBULATORY - MEDICINE [facility] [place] [place] [facility] Jan 30, 2024 08:00 AM [facility]ICINE [facility] Feb 02, 2024 02:00 PM AMBULATORY - MEDICINE [place] [facility] [place] [place] [facility] Feb 04, 2024 11:00 AM AMBULATORY - MEDICINE [place] C [place] [place] [facility] Social History: Smoking Status (Most [...] AM VA-TOBACCO NEVER USED [place] [facility] Tobacco Use History This section includes a history of the smoking, or tobacco-related health factors, that were collected on or before the date of the Encounter. The data comes from the [place] facility where the Encounter took place. Date/Time Smoking Status/Tobacco Use Comment F acility Aug 09, 2021 09:20 AM MD-TOBACCO NEVER USED [facility] Encounter Notes: All associated encounter notes This section contains the clinical notes associated to the Encounter. Date/Time Encounter Note(s) Provider Source Dec 04, 2023 01:00 PM RECREATIONAL THERA PY NOTE: LOCAL TITLE: YOGA WELLBEING STANDARD TITLE: RECREATIONAL THERAPY NOTE DATE OF NOTE: DEC 04, 2023@13:00 ENTRY DATE: DEC 04, 2023@16:03:16 AUTHOR: MARY KATE MOORE EXP COSIGNER: URGENCY: [...] tree, triangle pose, wide leg forward bend, [place] 2, Extended Side Angle Pose, Intense Side Stretch, [place] 1, plank, cobra, locust, downward facing dog, wisdom pose, contralateral limb raises, head to knee pose, bridge, reclined twist, and knees to chest; Systematic Relaxation; and Gratitude. Modifications were geared toward the 's individual needs and preferences. was one of thirteen participants in Group Yoga. He practiced all the postures offered, using a chair, yoga blocks and a yoga strap for support as needed. He was attentive to his breath throughout the session. will return to class as his schedule allows. /yunior/ ROXANNA [id number] Planning Intern Signed: 12/04/2023 16:09 MARY KATE MOORE [facility]
--- OUTSIDE RECORDS SUMMARY | 2024-06-29 18:51 | XMS_ITS | Encounter Summary ---
Author Name [facility] [place] Address [address] [place] [address] Care Team Providers Care Wheel Polisher Name Role Phone ABDIRAHMAN LA[place] Primary Care [...] BASIC FAMIL Y Jun 24, 2009 112 [id number] [phone] ABHILASH GARAY PATIENT ANTHEM BCBS [place] F[place] PREFERRED PROVIDER ORGANIZAT ION (PPO) FEP BASIC FAM Jun 24, 2009 112 [id number] [phone] ABHILASH GARAY PATIENT ANTHEM BCBS [place] FEP PREFERRED PROVIDER ORGANIZAT ION (PPO) FEP BASIC FAM Jun 24, 2009 112 [id number] [phone] ABHILASH GARAY PATIENT [place] PREFERRED PROVIDER ORGANIZAT ION (PPO) FEP BASIC FAM Jun 24, 2009 112 [id number] [phone] ABHILASH GARAY PATIENT [place] F[place] PREFERRED PROVIDER ORGANIZAT ION (PPO) FEP BASIC FAM Jun 24, 2009 112 [id number] [phone] ABHILASH GARAY PATIENT [place] FEP PREFERRED PROVIDER ORGANIZAT ION (PPO) BASIC FAMIL Y Jun 24, 2009 [id number] ABHILASH GARAY PATIENT [place] PREFERRED PROVIDER ORGANIZAT ION (PPO) BASIC FAMIL Y Jun 24, 2009 [id number] ABHILASH GARAY PATIENT [place] F[place] PREFERRED PROVIDER ORGANIZAT ION (PPO) BASIC FAMIL Y Jun 24, 2009 [id number] ABHILASH GARAY PATIENT [place] DENTAL DENTAL INSURANCE BASIC Jul 12, 2009 DENTAL [id number] ABHILASH GARAY PATIENT [place] PREFERRED PROVIDER ORGANIZAT ION (PPO) BASIC FAMIL Y Jun 24, 2009 112 [id number] [phone] ABHILASH GARAY PATIENT [employer] FEP ([id number]) PRESCRIPT ION FEPRX Jun 24, 2009 [id number] [phone] ABHILASH GARAY PATIENT [place] FEP BCBS PRESCRIPT ION CAREM ARK FEPRX PLAN Nov 21, 2021 [id number] ABHILASH GARAY PATIENT [employer] FEPRX PLAN PRESCRIPT ION CAREM ARK FEPRX Nov 21, 2021 [id number] ABHILASH GARAY PATIENT [employer]-F EP BCBS PRESCRIPT ION FEP CAREM ARK Nov 21, 2021 [id number] ABHILASH GARAY PATIENT [employer]-F EP BCBS PRESCRIPT ION FEP Jun 23, 2010 [id number] RUBI GARAYNETH PATIENT MEDICARE (WN) MEDICARE () PART A Feb 22, 2020 PART A [id number] ABHILASH GARAY PATIENT MEDICARE (WN) MEDICARE () PART A Feb 22, 2020 PART A [id number] [id number] [phone] ABHILASH GARAY PATIENT MEDICARE (WNR) MEDICARE (M) PART A Feb 22, 2020 PART A [id number] ABHILASH GARAY PATIENT MEDICARE (WNR) MEDICARE (M) PART A Feb 22, 2020 PART A [id number] ABHILASH GARAY PATIENT MEDICARE (WNR) MEDICARE (M) PART A Feb 22, 2020 PART A [id number] [phone] ABHILASH GARAY PATIENT Selected Encounter This section includes the information on record at [place] for the Encounter. Date/Time Encounter Type Encounter Description Reason Provider Source Dec 15, 2023 11:00 AM EXERCISE CLASS HEALTH/WELLBEING SRVS ICD-10-CM Y93.42 Activity, PAT Yoder [place] IHFran Encounter Template Text not used by [place] Assessments - Encounter Diagnoses This section includes the primary and secondary diagnoses documented for the Encounter. Date/Time Primary/Secondary Diagnosis Diagnosis Name Provider Source Dec 15, 2023 03:24 PM PRIMARY Activity, PEDRO Yoder [facility] [place] [place] [facility] Plan of Treatment: Future Appointments [...] Appointment Type Appointme nt Facility Name Dec 17, 2023 02:00 PM AMBULATORY - [place] [place] Dec 18, 2023 01:00 PM AMBULATORY - MEDICINE [place] [facility] Dec 22, 2023 10:30 AM AMBULATORY - MEDICINE [facility] Dec 31, 2023 08:15 PM AMBULATORY - MEDICINE [place] [facility] Jan 01, 2024 01:00 PM AMBULATORY - MEDICINE [place] [facility] Jan 02, 2024 09:30 AM AMBULATORY - REHAB [place]IN [place] Jan 07, 2024 03:00 PM AMBULATORY - REHAB [place] [place] Jan 08, 2024 01:00 PM AMBULATORY - MEDICINE [place] [facility] [place] [facility] Jan 09, 2024 11:00 AM AMBULATORY - MEDICINE [facility] [place] [facility] Jan 13, 2024 11:00 AM AMBULATORY - MEDICINE [place] [facility] [place] [facility] Jan 14, 2024 03:00 PM AMBULATORY - REHAB MED[facility]IN [place] Jan 21, 2024 03:00 PM AMBULATORY - REHAB MED[facility]IN [place] Jan 28, 2024 11:00 AM AMBULATORY - MEDICINE [place] [facility] [place] [facility] Jan 30, 2024 08:00 AM AMBULATORY - MEDICINE [facility] Feb 02, 2024 02:00 PM AMBULATORY - MEDICINE [place] [facility] [place] [facility] Feb 04, 2024 11:00 AM AMBULATORY - MEDICINE [place] [facility] [place] [facility] Feb 09, 2024 11:30 AM AMBULATORY - MEDICINE [place] [facility] [place] [facility] Feb 09, 2024 02:00 PM AMBULATORY - MEDICINE [place] [facility] [place] [facility] Feb 19, 2024 01:00 PM AMBULATORY - MEDICINE [place] [facility] [place] [facility] Feb 25, 2024 11:00 AM AMBULATORY - NONE [place] [facility] Social History: Smoking Status (Most [...] 08, 2023 09:12 AM VA-TOBACCO NEVER USED [place] [facility] Tobacco Use History This section includes a history of the smoking, or tobacco-related health factors, that were collected on or before the date of the Encounter. The data comes from the [place] facility where the Encounter took place. Date/Time Smoking Status/Tobacco Use Comment F acility Aug 09, 2021 09:20 AM VA-TOBACCO NEVER USED [facility] Encounter Notes: All associated encounter notes This section contains the clinical notes associated to the Encounter. Date/Time Encounter Note(s) Provider Source Dec 15, 2023 11:00 AM RECREATIONAL THERA PY NOTE: LOCAL TITLE: YOGA WELLBEING STANDARD TITLE: RECREATIONAL THERAPY NOTE DATE OF NOTE: DEC 15, 2023@11:00 ENTRY DATE: DEC 15, 2023@15:22:57 AUTHOR: MARY KATE MOORE EXP COSIGNER: URGENCY: [...] tree, triangle pose, wide leg forward bend, [place] 2, Extended Side Angle Pose, Intense Side Stretch, [place] 1, plank, cobra, locust, downward facing dog, wisdom pose, contralateral limb raises, head to knee pose, bridge, reclined twist, and knees to chest; Systematic Relaxation; and Gratitude. Modifications were geared toward the 's individual needs and preferences. [place] was one of eleven participants in Group Yoga. He practiced all the postures offered, using a chair, yoga blocks, and a yoga strap for support as needed. He was attentive to his breath throughout the session. will return to class as his schedule allows. /yunior/ ROXANNA [id number] Plaster Machine Operator Signed: 12/15/2023 15:31 MARY KATE MOORE [facility]
--- OUTSIDE RECORDS SUMMARY | 2024-06-29 18:51 | XMS_ITS | Encounter Summary ---
Author Name [facility] [place] Address [address] [place] [address] Care Team Providers Care Loan Originator Name Role Phone ABDIRAHMAN LA[place] Primary Care [...] BASIC FAMIL Y Jun 24, 2009 112 [id number] [phone] ABHILASH GARAY PATIENT ANTHEM BCBS [place] FEP PREFERRED PROVIDER ORGANIZAT ION (PPO) FEP BASIC FAM Jun 24, 2009 112 [id number] [phone] ABHILASH GARAY PATIENT ANTHEM BCBS [place] FEP PREFERRED PROVIDER ORGANIZAT ION (PPO) FEP BASIC FAM Jun 24, 2009 112 [id number] [phone] ABHILASH GARAY PATIENT ANTHE[place] PREFERRED PROVIDER ORGANIZAT ION (PPO) FEP BASIC FAM Jun 24, 2009 112 [id number] [phone] ABHILASH GARAY PATIENT [place] F[place] PREFERRED PROVIDER ORGANIZAT ION (PPO) FEP BASIC FAM Jun 24, 2009 112 [id number] [phone] ABHILASH GARAY PATIENT [place]BS [place] F[place] PREFERRED PROVIDER ORGANIZAT ION (PPO) BASIC FAMIL Y Jun 24, 2009 [id number] ABHILASH GARAY PATIENT [place] PREFERRED PROVIDER ORGANIZAT ION (PPO) BASIC FAMIL Y Jun 24, 2009 [id number] ABHILASH GARAY PATIENT [place] FEP PREFERRED PROVIDER ORGANIZAT ION (PPO) BASIC FAMIL Y Jun 24, 2009 [id number] ABHILASH GARAY PATIENT [place] F[place] DENTAL DENTAL INSURANCE BASIC Jul 12, 2009 DENTAL [id number] [phone] ABHILASH GARAY PATIENT [place] PREFERRED PROVIDER ORGANIZAT ION (PPO) BASIC FAMIL Y Jun 24, 2009 [id number] ABHILASH GARAY PATIENT [employer] FEP ([id number]) PRESCRIPT ION FEPRX Jun 24, 2009 [id number] [phone] ABHILASH GARAY PATIENT [place] FEP BCBS PRESCRIPT ION CAREM ARK FEPRX PLAN Nov 21, 2021 [id number] ABHILASH GARAY PATIENT [employer] FEPRX PLAN PRESCRIPT ION CAREM ARK FEPRX Nov 21, 2021 [id number] ABHILASH GARAY PATIENT [employer]-F EP BCBS PRESCRIPT ION FEP CAREM ARK Nov 21, 2021 [id number] ABHILASH GARAY PATIENT [place]-F EP BCBS PRESCRIPT ION FEP Jun 23, 2010 [id number] RUBI GARAYNETH PATIENT MEDICARE (WN) MEDICARE () PART A Feb 22, 2020 PART A [id number] [phone] ABHILASH GARAY PATIENT MEDICARE (WN) MEDICARE () PART A Feb 22, 2020 PART A [id number] ABHILASH GARAY PATIENT MEDICARE (WNR) MEDICARE (M) PART A Feb 22, 2020 PART A [id number] ABHILASH GARAY PATIENT MEDICARE (WNR) MEDICARE (M) PART A Feb 22, 2020 PART A [id number] ABHILASH GARAY PATIENT MEDICARE (WNR) MEDICARE (M) PART A Feb 22, 2020 PART A [id number] ABHILASH GARAY PATIENT Selected Encounter This section includes the information on record at [place] for the Encounter. Date/Time Encounter Type Encounter Description Reason Provider Source Dec 18, 2023 01:00 PM EXERCISE CLASS HEALTH/WELLBEING SRVS ICD-10-CM Y93.42 Activity, PAT Yoder [place] IHE Encounter Template Text not used by [place] Assessments - Encounter Diagnoses This section includes the primary and secondary diagnoses documented for the Encounter. Date/Time Primary/Secondary Diagnosis Diagnosis Name Provider Source Dec 18, 2023 04:10 PM PRIMARY Activity, PEDRO Yoder [facility] [place] [facility] Plan of Treatment: Future Appointments [...] Appointment Type Appointme nt Facility Name Dec 22, 2023 10:30 AM AMBULATORY - MEDICINE [facility] Dec 31, 2023 08:15 PM AMBULATORY - MEDICINE [place] C [place] [facility] Jan 01, 2024 01:00 PM AMBULATORY - MEDICINE [place] [facility] Jan 02, 2024 09:30 AM AMBULATORY - RE[facility]AB MEDICIN [facility] Jan 07, 2024 03:00 PM AMBULATORY - REHAB MEDICIN [facility] Jan 08, 2024 01:00 PM AMBULATORY - MEDICINE [place] [facility] [place] [facility] Jan 09, 2024 11:00 AM AMBULATORY - MEDICINE [place] [facility] [place] [facility] Jan 13, 2024 11:00 AM AMBULATORY - MEDICINE [place] [facility] [place] [facility] Jan 14, 2024 03:00 PM AMBULATORY - RE[place]AB [place]ICIN [place] Jan 21, 2024 03:00 PM AMBULATORY - RE[place]AB [place] Jan 28, 2024 11:00 AM AMBULATORY - MEDICINE [place] [facility] [place] [facility] Jan 30, 2024 08:00 AM AMBULATORY - MEDICINE [facility] Feb 02, 2024 02:00 PM AMBULATORY - MEDICINE [place] [facility] [place] [facility] Feb 04, 2024 11:00 AM AMBULATORY - MEDICINE [place] [facility] [place] [facility] Feb 09, 2024 11:30 AM AMBULATORY - MEDICINE [place] [facility] [place] [facility] Feb 09, 2024 02:00 PM AMBULATORY - MEDICINE [place] [facility] [place] [facility] Feb 19, 2024 01:00 PM AMBULATORY - MEDICINE [place] [facility] [place] [facility] Feb 25, 2024 11:00 AM AMBULATORY - NONE [place] [place] [facility] Mar 04, 2024 01:00 PM AMBULATORY - MEDICINE [place] [facility] [place] [facility] Mar 09, 2024 01:00 PM AMBULATORY - MEDICINE [place] [facility] [place] [facility] Social History: Smoking Status (Most [...] 08, 2023 09:12 AM VA-TOBACCO NEVER USED [place] [facility] Tobacco Use History This section includes a history of the smoking, or tobacco-related health factors, that were collected on or before the date of the Encounter. The data comes from the [place] facility where the Encounter took place. Date/Time Smoking Status/Tobacco Use Comment F acility Aug 09, 2021 09:20 AM [facility]TOBACCO [facility] Encounter Notes: All associated encounter notes This section contains the clinical notes associated to the Encounter. Date/Time Encounter Note(s) Provider Source Dec 18, 2023 01:00 PM RECREATIONAL THERA PY NOTE: LOCAL TITLE: YOGA WELLBEING STANDARD TITLE: RECREATIONAL THERAPY NOTE DATE OF NOTE: DEC 18, 2023@13:00 ENTRY DATE: DEC 18, 2023@16:09:35 AUTHOR: MARY KATE MOORE EXP COSIGNER: URGENCY: [...] tree, triangle pose, wide leg forward bend, [place] 2, Extended Side Angle Pose, Intense Side Stretch, [place] 1, plank, cobra, locust, downward facing dog, wisdom pose, contralateral limb raises, head to knee pose, bridge, reclined twist, and knees to chest; Systematic Relaxation; and Gratitude. Modifications were geared toward the 's individual needs and preferences. was one of eight participants in Group Yoga. He fully participated, practicing all the postures offered and modifying according to his needs. He practiced excellent self- care and used his breath as a tool to enhance his practice. He will return to class as his schedule allows. /yunior/ NINO [id number] Senior Principal Signed: 12/18/2023 16:14 MARY KATE MOORE [facility]
--- OUTSIDE RECORDS SUMMARY | 2024-06-29 18:51 | XMS_ITS | Encounter Summary ---
Author Name [facility] [place] Address [address] [place] [address] Care Team Providers Care Communications Field Technician Name Role Phone ABDIRAHMAN LAKE Primary Care [...] BASIC FAMIL Y Jun 24, 2009 112 [id number] [phone] ABHILASH GARAY PATIENT ANTHEM BCBS [place] FEP PREFERRED PROVIDER ORGANIZAT ION (PPO) FEP BASIC FAM Jun 24, 2009 112 [id number] [phone] ABHILASH GARAY PATIENT ANTHEM BCBS [place] F[place] PREFERRED PROVIDER ORGANIZAT ION (PPO) FEP BASIC FAM Jun 24, 2009 112 [id number] [phone] ABHILASH GARAY PATIENT [place] PREFERRED PROVIDER ORGANIZAT ION (PPO) FEP BASIC FAM Jun 24, 2009 112 [id number] [phone] ABHILASH GARAY PATIENT [place] F[place] PREFERRED PROVIDER ORGANIZAT ION (PPO) FEP BASIC FAM Jun 24, 2009 112 [id number] [phone] RUBI GARAYNETH PATIENT BCBS [place] F[place] PREFERRED PROVIDER ORGANIZAT ION (PPO) BASIC FAMIL Y Jun 24, 2009 112 [id number] [phone] RUBI GARAYNETH PATIENT [place] PREFERRED PROVIDER ORGANIZAT ION (PPO) BASIC FAMIL Y Jun 24, 2009 112 [id number] RUBI GARAYNETH PATIENT [place] PREFERRED PROVIDER ORGANIZAT ION (PPO) BASIC FAMIL Y Jun 24, 2009 [id number] RUBI GARAYNETH PATIENT [place] F[place] DENTAL DENTAL INSURANCE BASIC Jul 12, 2009 DENTAL [id number] [phone] DEJAHDANIKARUBI ACEVESNETH PATIENT [place] FEP PREFERRED PROVIDER ORGANIZAT ION (PPO) BASIC FAMIL Y Jun 24, 2009 112 [id number] [phone] ABHILASH GARAY PATIENT [place] FEP ([id number]) PRESCRIPT ION FEPRX Jun 24, 2009 [id number] [phone] ABHILASH GARAY PATIENT [place] FEP BCBS PRESCRIPT ION CAREM ARK FEPRX PLAN Nov 21, 2021 [id number] ABHILASH GARAY PATIENT [place] FEPRX PLAN PRESCRIPT ION CAREM ARK FEPRX Nov 21, 2021 [id number] [phone] ABHILASH GARAY PATIENT [place]-F EP BCBS PRESCRIPT ION FEP CAREM ARK Nov 21, 2021 [id number] ABHILASH GARAY PATIENT [place]-F EP BCBS PRESCRIPT ION FEP Jun 23, 2010 [id number] RUBI GARAYNETH PATIENT MEDICARE ([facility]) MEDICARE () PART A Feb 22, 2020 PART A [id number] [phone] ABHILASH GARAY PATIENT MEDICARE (WNR) MEDICARE (M) PART A Feb 22, 2020 PART A [id number] [phone] ABHILASH GARAY PATIENT MEDICARE (WNR) MEDICARE (M) PART A Feb 22, 2020 PART A [id number] ABHILASH GARAY PATIENT MEDICARE (WNR) MEDICARE (M) PART A Feb 22, 2020 PART A [id number] [phone] ABHILASH GARAY PATIENT MEDICARE (WNR) MEDICARE (M) PART A Feb 22, 2020 PART A [id number] ABHILASH GARAY PATIENT Selected Encounter This section includes the information on [place] at [place] for the Encounter. Date/Time Encounter Type Encounter Description Reason Pro vider Source Dec 08, 2023 01:05 PM Outpatient Encounter ADMIN PAT ACTIVTIES (MASNONCT) IHE Encounter Template Text not used by [place] Plan of Treatment: Future Appointments (+ 6 months) and Future Tests (+/- 45 days) The Plan of Treatment section includes future care activities for the patient from all [place] [facility]. This section includes future appointments and [...] 11, 2023 01:00 PM AM[place]ULATORY [place] [facility] Dec 15, 2023 11:00 AM AM[place]ORY [place] [facility] Dec 15, 2023 03:00 PM [place] [facility] Dec 17, 2023 02:00 PM AMBULATORY - RE[facility]AB [facility] [place] Dec 18, 2023 01:00 PM AM[place]ORY [place] [facility] Dec 22, 2023 10:30 AM AMBULATORY - MEDICINE [facility] Dec 31, 2023 08:15 PM [place] [facility] Jan 01, 2024 01:00 PM [place]ORY [place] [facility] Jan 02, 2024 09:30 AM AMBULATORY - RE[facility]AB [facility] [place] Jan 07, 2024 03:00 PM AMBULATORY - [place]AB [facility] [place] Jan 08, 2024 01:00 PM AM[place]UL[place] [facility] Jan 09, 2024 11:00 AM AMBULATORY [place]ICINE [place] [facility] [place] [place] [facility] Jan 13, 2024 11:00 AM AM[place]ULATORY [place]INE [place] [facility] [place] [facility] Jan 14, 2024 03:00 PM AMBULATORY - REHAB [facility]IN [place] Jan 21, 2024 03:00 PM AMBULATORY - RE[place]AB [facility] [place] Jan 28, 2024 11:00 AM AM[place] [facility] Jan 30, 2024 08:00 AM [facility]UL[facility] Feb 02, 2024 02:00 PM AMBULATORY [place]ICINE [place] [facility] [place] [facility] Feb 04, 2024 11:00 AM AMBULATORY [place]INE [place] [facility] [place] [facility] Feb 09, 2024 11:30 AM AM[place]UL[place]ORY [place] [facility] Social [...] 08, 2023 09:12 AM [place]-TOBACCO NEVER USED [facility] Tobacco Use History This section includes a history of the smoking, or tobacco-related health factors, that were collected on or before the date of the Encounter. The data comes from the [place] facility where the Encounter took place. Date/Time Smoking Status/Tobacco Use Comment F acjaved Aug 09, 2021 09:20 AM [facility] Encounter Notes: All associated encounter notes This section contains the clinical notes associated to the Encounter. Date/Time Encounter Note(s) Provider Source Dec 08, 2023 01:05 PM ADMINISTRATIVE NOT E: LOCAL TITLE: CCC: SCHEDULING ADMINISTRATION STANDARD TITLE: ADMINISTRATIVE NOTE DATE OF NOTE: DEC 08, 2023@13:05 ENTRY DATE: DEC 08, 2023@13:05:45 AUTHOR: MICHELLE SANTOS EXP COSIGNER: URGENCY: STATUS: COMPLETED CCC: SCHEDULING ADMINISTRATION Has ADDENDA Patient Demographics Patient Name: ABHILASH GARAY Patient Primary Address: [address] [place] [id number] Patient Primary Phone: [phone] Patient : 1955 Patient Age: 68 Current Location: home Call Back Number: verified Caller/Recipient Relation to Patient: Self Emergency Contact: ANNA GARAY called upset stating he is having touble getting ahold of patient advocate and pact. requesting return call to discuss medications. he is concerned he will run out before pcp appointment. /oriana STEWARTN 1 [facility] AMSA Signed: 12/08/2023 13:09 Receipt Acknowledged By: 12/09/2023 10:06 /yunior/ FERCHO MELLO RN REGISTERED NURSE for RADHIKA GOMEZ 12/09/2023 07:57 /yunior/ EUGENIE SALVADOR LPN Licensed Practical Nurse 12/08/2023 ADDENDUM STATUS: COMPLETED Called and left a voicemail message for the [facility] to call the clinic back. /oriana MELLO RN REGISTERED NURSE Signed: 12/08/2023 13:33 12/09/2023 ADDENDUM STATUS: COMPLETED had called back yesterday afternoon and [facility] was able to help . [facility] is all set for now. /oriana MELLO RN REGISTERED NURSE Signed: 12/09/2023 10:06 MICHELLE SANTOS CN[facility]L [facility]
--- OUTSIDE RECORDS SUMMARY | 2024-06-29 18:51 | XMS_ITS | Encounter Summary ---
Author Name [facility] [place] [facility] [place] Address [address] [place] [address] Care Team Providers Care Fire Extinguisher Mechanic Name Role Phone ABDIRAHMAN LAKE Primary Care [...] BASIC FAMIL Y Jun 24, 2009 112 [id number] [phone] ABHILASH GARAY PATIENT ANTHEM BCBS [place] F[place] PREFERRED PROVIDER ORGANIZAT ION (PPO) FEP BASIC FAM Jun 24, 2009 112 [id number] [phone] ABHILASH GARAY PATIENT ANTHEM [place]BS [place] F[place] PREFERRED PROVIDER ORGANIZAT ION (PPO) FEP BASIC FAM Jun 24, 2009 112 [id number] [phone] ABHILASH GARAY PATIENT [place] PREFERRED PROVIDER ORGANIZAT ION (PPO) FEP BASIC FAM Jun 24, 2009 112 [id number] [phone] ABHILASH GARAY PATIENT [place] PREFERRED PROVIDER ORGANIZAT ION (PPO) FEP BASIC FAM Jun 24, 2009 112 [id number] [phone] ABHILASH GARAY PATIENT [place]BS [place] PREFERRED PROVIDER ORGANIZAT ION (PPO) BASIC FAMIL Y Jun 24, 2009 [id number] ABHILASH GARAY PATIENT [place] F[place] PREFERRED PROVIDER ORGANIZAT ION (PPO) BASIC FAMIL Y Jun 24, 2009 [id number] ABHILASH GARAY PATIENT [place] PREFERRED PROVIDER ORGANIZAT ION (PPO) BASIC FAMIL Y Jun 24, 2009 112 [id number] [phone] ABHILASH GARAY PATIENT [place] DENTAL DENTAL INSURANCE BASIC Jul 12, 2009 DENTAL [id number] [phone] ABHILASH GARAY PATIENT [place] PREFERRED PROVIDER ORGANIZAT ION (PPO) BASIC FAMIL Y Jun 24, 2009 [id number] ABHILASH GARAY PATIENT [employer] FEP ([id number]) PRESCRIPT ION FEPRX Jun 24, 2009 [id number] [phone] ABHILASH GARAY PATIENT [place] FEP BCBS PRESCRIPT ION CAREM ARK FEPRX PLAN Nov 21, 2021 [id number] ABHILASH GARAY PATIENT [place] FEPRX PLAN PRESCRIPT ION CAREM ARK FEPRX Nov 21, 2021 [id number] ABHILASH GARAY PATIENT [place]-F EP BCBS PRESCRIPT ION FEP CAREM ARK Nov 21, 2021 [id number] ABHILASH GARAY PATIENT [place]-F EP BCBS PRESCRIPT ION FEP Jun 23, 2010 [id number] RUBI GARAYNETH PATIENT MEDICARE (WN) MEDICARE () PART A Feb 22, 2020 PART A [id number] ABHILASH GARAY PATIENT MEDICARE (WN) MEDICARE () PART A Feb 22, 2020 PART A [id number] ABHILASH GARAY PATIENT MEDICARE (WNR) MEDICARE (M) PART A Feb 22, 2020 PART A [id number] [phone] ABHILASH GARAY PATIENT MEDICARE (WNR) MEDICARE (M) PART A Feb 22, 2020 PART A [id number] ABHILASH GARAY PATIENT MEDICARE (WNR) MEDICARE (M) PART A Feb 22, 2020 PART A [id number] [phone] ABHILASH GARAY PATIENT Selected Encounter This section includes the information on record at [place] for the Encounter. Date/Time Encounter Type Encounter Description Reason Provider Source Dec 11, 2023 01:00 PM EXERCISE CLASS HEALTH/WELLBEING SRVS ICD-10-CM Y93.42 Activity, PAT Yoder [place] IHFran Encounter Template Text not used by [place] Assessments - Encounter Diagnoses This section includes the primary and secondary diagnoses documented for the Encounter. Date/Time Primary/Secondary Diagnosis Diagnosis Name Provider Source Dec 12, 2023 07:59 AM PRIMARY Activity, PEDRO Yoder [facility] [place] [facility] Plan of Treatment: Future Appointments (+ 6 months) and Future Tests (+/- 45 days) The Plan of Treatment section includes future care activities for the patient from all [place] treatmentfacilities. This section includes future appointments and future orders which are active, pending or scheduled. Future Appointments This section includes appointments that were scheduled to occur 6 months from the date of the Encounter, up to a maximum of 20 appointments. The data comes from all [place] treatment facilities. Appointment Date/Time Appointment Type Appointme nt Facility Name Dec 15, 2023 11:00 AM AMBULATORY - MEDICINE [facility] [place] [facility] Dec 15, 2023 03:00 PM AMBULATORY - MEDICINE [facility] [place] [facility] Dec 17, 2023 02:00 PM AMBULATORY - REHAB MEDICIN [facility] [place] Dec 18, 2023 01:00 PM AMBULATORY - MEDICINE [facility] [place] [facility] Dec 22, 2023 10:30 AM AMBULATORY - MEDICINE [facility] Dec 31, 2023 08:15 PM AMBULATORY [place]ICINE [place] [facility] [place] [facility] Jan 01, 2024 01:00 PM AMBULATORY - [place]ICINE [place] [facility] [place] [facility] Jan 02, 2024 09:30 AM AMBULATORY - REHAB MEDICIN [facility] Jan 07, 2024 03:00 PM AMBULATORY - REHAB MEDICIN [place] Jan 08, 2024 01:00 PM AMBULATORY - MEDICINE [place] [facility] [place] [facility] Jan 09, 2024 11:00 AM AMBULATORY - [place]ICINE [place] [facility] [place] [facility] Jan 13, 2024 11:00 AM AMBULATORY - MEDICINE [place] [facility] [place] [facility] Jan 14, 2024 03:00 PM AMBULATORY - REHAB MEDICIN [place] Jan 21, 2024 03:00 PM AMBULATORY - REHAB MEDICIN [facility] Jan 28, 2024 11:00 AM AMBULATORY - MEDICINE [place] [facility] [place] [facility] Jan 30, 2024 08:00 AM AMBULATORY - MEDICINE [facility] Feb 02, 2024 02:00 PM AMBULATORY - MEDICINE [place] [facility] [place] [facility] Feb 04, 2024 11:00 AM AMBULATORY [place]ICINE [place] [facility] Feb 09, 2024 11:30 AM AM[place] [facility] Feb 09, 2024 02:00 PM AM[place]UL[place]ORY [place]INE [place] [facility] Social History: Smoking Status (Most current) [...] 08, 2023 09:12 AM [facility] Tobacco Use History This section includes a history of the smoking, or tobacco-related health factors, that were collected on or before the date of the Encounter. The data comes from the [place] facility where the Encounter took place. Date/Time Smoking Status/Tobacco Use Comment F acility Aug 09, 2021 09:20 AM [place]-TOBACCO NEVER USED [facility] Encounter Notes: All associated encounter notes This section contains the clinical notes associated to the Encounter. Date/Time Encounter Note(s) Provider Source Dec 11, 2023 01:00 PM RECREATIONAL THERA PY NOTE: LOCAL TITLE: [place] WELLBEING STANDARD TITLE: RECREATIONAL THERAPY NOTE DATE OF NOTE: DEC 11, 2023@13:00 ENTRY DATE: DEC 12, 2023@07:58:45 AUTHOR: MARY KATE MOORE EXP COSIGNER: URGENCY: [...] tree, triangle pose, wide leg forward bend, [place] 2, Extended Side Angle Pose, Intense Side Stretch, [place] 1, plank, cobra, locust, downward facing dog, [...] attentive to his breath throughout the session. [place] will return to class as his schedule allows. /yunior/ ROXANNA [id number] Sandfill Operator Signed: 12/12/2023 08:07 MARY KATE MOORE [facility]
--- OUTSIDE RECORDS SUMMARY | 2024-06-29 18:51 | XMS_ITS | Encounter Summary ---
Author Name [facility] [place] Address [address] [place] [address] Care Team Providers Care Cryptographer Name Role Phone ABDIRAHMAN LAKE Primary Care [...] BASIC FAMIL Y Jun 24, 2009 [id number] [phone] ABHILASH GARAY PATIENT ANTHEM BCBS [place] FEP PREFERRED PROVIDER ORGANIZAT ION (PPO) FEP BASIC FAM Jun 24, 2009 [id number] [phone] ABHILASH GARAY PATIENT ANTHEM BCBS [place] F[place] PREFERRED PROVIDER ORGANIZAT ION (PPO) FEP BASIC FAM Jun 24, 2009 [id number] [phone] ABHILASH GARAY PATIENT [place] PREFERRED PROVIDER ORGANIZAT ION (PPO) FEP BASIC FAM Jun 24, 2009 112 [id number] [phone] ABHILASH GARAY PATIENT [place] PREFERRED PROVIDER ORGANIZAT ION (PPO) FEP BASIC FAM Jun 24, 2009 [id number] [phone] ABHILASH GARAY PATIENT [place] PREFERRED PROVIDER ORGANIZAT ION (PPO) BASIC FAMIL Y Jun 24, 2009 [id number] ABHILASH GARAY PATIENT [place] PREFERRED PROVIDER ORGANIZAT ION (PPO) BASIC FAMIL Y Jun 24, 2009 [id number] ABHILASH GARAY PATIENT [place] PREFERRED PROVIDER ORGANIZAT ION (PPO) BASIC FAMIL Y Jun 24, 2009 [id number] ABHILASH GARAY PATIENT [place] DENTAL DENTAL INSURANCE BASIC Jul 12, 2009 DENTAL [id number] ABHILASH GARAY PATIENT [place] PREFERRED PROVIDER ORGANIZAT ION (PPO) BASIC FAMIL Y Jun 24, 2009 [id number] ABHILASH GARAY PATIENT [place] FEP ([id number]) PRESCRIPT ION FEPRX Jun 24, 2009 [id number] [phone] ABHILASH GARAY PATIENT [place] FEP BCBS PRESCRIPT ION CAREM ARK FEPRX PLAN Nov 21, 2021 [id number] ABHILASH GARAY PATIENT [place] FEPRX PLAN PRESCRIPT ION CAREM ARK FEPRX Nov 21, 2021 [id number] ABHILASH GARAY PATIENT [place]-F EP BCBS PRESCRIPT ION FEP CAREM ARK Nov 21, 2021 [id number] ABHILASH GARAY PATIENT [place]-F EP BCBS PRESCRIPT ION FEP Jun 23, 2010 [id number] RUBI GARAYNETH PATIENT MEDICARE (WN) MEDICARE () PART A Feb 22, 2020 PART A [id number] [phone] ABHILASH GARAY PATIENT MEDICARE (WN) MEDICARE () PART A Feb 22, 2020 PART A [id number] ABHILASH GARAY PATIENT MEDICARE (WNR) MEDICARE (M) PART A Feb 22, 2020 PART A [id number] ABHILASH GARAY PATIENT MEDICARE (WNR) MEDICARE (M) PART A Feb 22, 2020 PART A [id number] ABHILASH GARAY PATIENT MEDICARE (WNR) MEDICARE (M) PART A Feb 22, 2020 PART A [id number] [id number] [phone] ABHILASH GARAY PATIENT Selected Encounter This section includes the information on record at [place] for the Encounter. Date/Time Encounter Type Encounter Description Reason Provider Source Dec 02, 2023 11:00 AM EXERCISE CLASS HEALTH/WELLBEING SRVS ICD-10-CM Y93.42 Activity, PTA Yoder [place] IHE Encounter Template Text not used by [place] Assessments - Encounter Diagnoses This section includes the primary and secondary diagnoses documented for the Encounter. Date/Time Primary/Secondary Diagnosis Diagnosis Name Provider Source Dec 02, 2023 03:29 PM PRIMARY Activity, PEDRO Yoder [facility] [place] [place] [facility] Plan of Treatment: Future Appointments (+ 6 months) and Future Tests (+/- 45 days) The Plan of Treatment section includes future care activities for the patient from all [place] treatmentfacilities. This section includes future appointments and future orders which are active, pending or scheduled. Future Appointments This section includes appointments that were scheduled to occur 6 months from the date of the Encounter, up to a maximum of 20 appointments. The data comes from all [place] treatment facilities. Appointment Date/Time Appointment Type Appointme nt Facility Name Dec 04, 2023 01:00 PM AMBULATORY [place] [facility] Dec 08, 2023 11:00 AM AM[place] [facility] [place] [facility] Dec 11, 2023 01:00 PM AM[place] [facility] Dec 15, 2023 11:00 AM AM[place] [facility] Dec 15, 2023 03:00 PM AM[place]ATORY [place] [facility] Dec 17, 2023 02:00 PM AMBULATORY - [place]HAB MEDICIN [place] Dec 18, 2023 01:00 PM AM[place] [facility] Dec 22, 2023 10:30 AM [facility] Dec 31, 2023 08:15 PM AMBULATORY - MEDICINE [place] [facility] [place] [place] [facility] Jan 01, 2024 01:00 PM AMBULATORY - MEDICINE [facility] [place] [facility] Jan 02, 2024 09:30 AM AMBULATORY - REHAB MEDICIN [place] Jan 07, 2024 03:00 PM AMBULATORY - REHAB MEDICIN [place] Jan 08, 2024 01:00 PM AMB[place]ATORY [place] [facility] Jan 09, 2024 11:00 AM AM[facility]ULATORY [place] [facility]ICINE [place] [facility] [place] [place] [facility] Jan 13, 2024 11:00 AM AMBULATORY [place] [facility] Jan 14, 2024 03:00 PM AMBULATORY - REHAB MEDICIN [place] Jan 21, 2024 03:00 PM AMBULATORY - REHAB MEDICIN [place] Jan 28, 2024 11:00 AM AM[place] [facility] Jan 30, 2024 08:00 AM AMBULATORY - MEDICINE [facility] Feb 02, 2024 02:00 PM AM[place] [facility] Social History: Smoking Status (Most current) and Tobacco Use (All prior to encounter date) This section includes the most current, and the historical, smoking and tobacco- related health factors from the [place] facility where the Encounter took place. Current Smoking Status This section includes the most current smoking, or tobacco-related health factor, from the [place] facility where the Encounter took place. Date/Time Current Smoking Status Comment Facil ity Apr 08, 2023 09:12 AM [facility]TO[facility]ACCO [facility] Tobacco Use History This section includes a history of the smoking, or tobacco-related health factors, that were collected on or before the date of the Encounter. The data comes from the [place] facility where the Encounter took place. Date/Time Smoking Status/Tobacco Use Comment F acility Aug 09, 2021 09:20 AM VA-TOBACCO NEVER USED [facility] Encounter Notes: All associated encounter notes This section contains the clinical notes associated to the Encounter. Date/Time Encounter Note(s) Provider Source Dec 02, 2023 11:00 AM RECREATIONAL THERA PY NOTE: LOCAL TITLE: [place]OGA WELLBEING STANDARD TITLE: RECREATIONAL THERAPY NOTE DATE OF NOTE: DEC 02, 2023@11:00 ENTRY DATE: DEC 02, 2023@15:29 AUTHOR: MARY KATE MOORE EXP COSIGNER: URGENCY: STATUS: COMPLETED Group Yoga Class Total time: 60 minutes Class Focus: Breath awareness, mindful movement, relaxation, and gratitude to balance the nervous system and enhance overall well-being. The Practice: Longhana Pranayama for calming the nervous system; postures that included, but were not limited to, moving warm-up, half sun salutation, sun salutation A variation, tree, triangle pose, wide leg forward bend, [place] 2, Extended Side Angle Pose, Intense Side Stretch, [place] 1, plank, cobra, locust, downward facing dog, wisdom pose, contralateral limb raises, head to knee pose, bridge, reclined twist, and knees to chest; Systematic Relaxation; and Gratitude. Modifications were geared toward the [place]hel's individual needs and preferences. was one of ten participants in Group Yoga. He practiced all the postures offered, using a chair, yoga blocks, and a yoga strap for support as needed. He was attentive to his breath throughout the session. [place] will return to class as his schedule allows. /yunior/ MARY KATE MOORE, [id number] Geochemical Manager Signed: 12/02/2023 15:35 MARY KATE MOORE [facility]
--- OUTSIDE RECORDS SUMMARY | 2024-06-29 18:51 | XMS_ITS ---
Author Name [facility] [place] Address [address] [place] [id number] Care Team Providers Care Vault Maker Name Role Phone ABDIRAHMAN LAKE Primary Care [...] BASIC FAMIL Y Jun 24, 2009 112 [id number] [phone] ABHILASH GARAY PATIENT ANTHEM [place]BS [place] F[place] PREFERRED PROVIDER ORGANIZAT ION (PPO) FEP BASIC FAM Jun 24, 2009 112 [id number] [phone] ABHILASH GARAY PATIENT ANTHEM [place] PREFERRED PROVIDER ORGANIZAT ION (PPO) FEP BASIC FAM Jun 24, 2009 112 [id number] [phone] ABHILASH GARAY PATIENT [place] PREFERRED PROVIDER ORGANIZAT ION (PPO) FEP BASIC FAM Jun 24, 2009 112 [id number] [phone] ABHILASH GARAY PATIENT [place] PREFERRED PROVIDER ORGANIZAT ION (PPO) FEP BASIC FAM Jun 24, 2009 112 [id number] [phone] RUBI GARAYNETH PATIENT [place] F[place] PREFERRED PROVIDER ORGANIZAT ION (PPO) BASIC FAMIL Y Jun 24, 2009 112 [id number] ABHILASH GARAY PATIENT [place] PREFERRED PROVIDER ORGANIZAT ION (PPO) BASIC FAMIL Y Jun 24, 2009 112 [id number] ABHILASH GARAY PATIENT [place] PREFERRED PROVIDER ORGANIZAT ION (PPO) BASIC FAMIL Y Jun 24, 2009 112 [id number] RUBI GARAYNETH PATIENT [place] F[place] DENTAL DENTAL INSURANCE BASIC Jul 12, 2009 DENTAL [id number] RUBI GARAYNETH PATIENT [place] PREFERRED PROVIDER ORGANIZAT ION (PPO) BASIC FAMIL Y Jun 24, 2009 112 [id number] ABHILASH GARAY PATIENT [place] FEP ([id number]) PRESCRIPT ION FEPRX Jun 24, 2009 [id number] [phone] ABHILASH GARAY PATIENT [place] FEP BCBS PRESCRIPT ION CAREM [place] FEPRX PLAN Nov 21, 2021 [id number] ABHILASH GARAY PATIENT [place] FEPRX PLAN PRESCRIPT ION CAREM ARK FEPRX Nov 21, 2021 [id number] ABHILASH GARAY PATIENT [place] BCBS PRESCRIPT ION FEP CAREM ARK Nov 21, 2021 [id number] ABHILASH GARAY PATIENT [place] BCBS PRESCRIPT ION FEP Jun 23, 2010 [id number] DEJAHDANIKARUBI ACEVESNETH PATIENT MEDICARE ([facility]) MEDICARE () PART A Feb 22, 2020 PART A [id number] ABHILASH GARAY PATIENT MEDICARE (WNR) MEDICARE (M) PART A Feb 22, 2020 PART A [id number] ABHILASH GARAY PATIENT MEDICARE (WNR) MEDICARE (M) PART A Feb 22, 2020 PART A [id number] [phone] ABHILASH GARAY PATIENT MEDICARE (WNR) MEDICARE (M) PART A Feb 22, 2020 PART A [id number] [phone] ABHILASH GARAY PATIENT MEDICARE (WNR) MEDICARE (M) PART A Feb 22, 2020 PART A [id number] ABHILASH GARAY PATIENT Selected Encounter This section includes the information on record at [place] for the Encounter. Date/Time Encounter Type Encounter Description Reason Provider Source Dec 15, 2023 03:00 PM ACUPUNCT W/O STIMUL ADDL 15M CI TREATMENT ICD-10-CM M54.50 Low back pain, unspecified JESIGRACE PHER M [facility] Encounter Template Text not used by [place] Assessments - Encounter Diagnoses This section includes the primary and secondary diagnoses documented for the Encounter. Date/Time Primary/Secondary Diagnosis Diagnosis Name Provider Source Dec 16, 2023 08:10 AM PRIMARY Low back pain, unspecified JESIGRACE PHER M [facility] [place] [facility] Dec 16, 2023 08:10 AM SECONDARY Pain in left knee JESIGRACE PHER M [facility] [place] [facility] Dec 16, 2023 08:10 AM SECONDARY Pain in left toe(s) JOSE MANUEL RODASO PHER M [facility] [place] [facility] Dec 16, 2023 08:10 AM SECONDARY Pain in right knee MANOHARUNJOSE MANUEL GALLEGOSO PHER M [facility] [place] [facility] Dec 16, 2023 08:10 AM SECONDARY Pain in right toe(s) JOSE MANUEL RODASO PHER M [facility] [place] [facility] Dec 16, 2023 08:10 AM SECONDARY Paresthesia of skin JOSE MANUEL RODASO PHER M [facility] [place] [facility] Plan of Treatment: Future Appointments (+ 6 months) and Future Tests (+/- 45 days) The Plan of Treatment section includes [facility] care [facility] the [facility] This section includes future appointments [...] 2023 02:00 PM AMBULATORY - REHAB MEDICIN [facility] Dec 18, 2023 01:00 PM AMBULATORY - MEDICINE [facility] [place] [facility] Dec 22, 2023 10:30 AM AMBULATORY - MEDICINE [facility] Dec 31, 2023 08:15 PM AMBULATORY - MEDICINE [facility] [place] [facility] Jan 01, 2024 01:00 PM AMBULATORY - MEDICINE [facility] [place] [facility] Jan 02, 2024 09:30 AM AMBULATORY - REHAB MEDICIN [facility] Jan 07, 2024 03:00 PM AMBULATORY - REHAB MEDICIN [facility] Jan 08, 2024 01:00 PM AMBULATORY - MEDICINE [facility] [place] [facility] Jan 09, 2024 11:00 AM AMBULATORY - MEDICINE [facility] [place] [facility] Jan 13, 2024 11:00 AM AMBULATORY - MEDICINE [facility] [place] [facility] Jan 14, 2024 03:00 PM AMBULATORY - REHAB MEDICIN [facility] Jan 21, 2024 03:00 PM AMBULATORY - REHAB MEDICIN [facility] Jan 28, 2024 11:00 AM AMBULATORY - MEDICINE [facility] [place] [facility] Jan 30, 2024 08:00 AM AMBULATORY - MEDICINE [facility] Feb 02, 2024 02:00 PM AMBULATORY - MEDICINE [facility] [place] [facility] Feb 04, 2024 11:00 AM AMBULATORY - MEDICINE [facility] [place] [facility] Feb 09, 2024 11:30 AM AMBULATORY - MEDICINE [facility] [place] [facility] Feb 09, 2024 02:00 PM AMBULATORY - MEDICINE [facility] [place] [facility] Feb 19, 2024 01:00 PM AMBULATORY - MEDICINE [facility] [place] [facility] Feb 25, 2024 11:00 AM AMBULATORY - NONE [facility] [place] [facility] Social History: Smoking Status (Most current) and [...] 08, 2023 09:12 AM VA-TOBACCO NEVER USED [facility] Tobacco Use History This section includes a history of the smoking, or tobacco-related health factors, that were collected on or before the date of the Encounter. The data comes from the [place] facility where the Encounter took place. Date/Time Smoking Status/Tobacco Use Comment F darvin Aug 09, 2021 09:20 AM VA-TOBACCO NEVER USED [facility] Encounter Notes: All associated encounter notes This section contains the clinical notes associated to the Encounter. Date/Time Encounter Note(s) Provider Source Dec 15, 2023 03:30 PM ACUPUNCTURE NOTE: LOCAL TITLE: ACUPUNCTURE TREATMENT STANDARD TITLE: ACUPUNCTURE NOTE DATE OF NOTE: DEC 15, 2023@15:30 ENTRY DATE: DEC 15, 2023@15:30:10 AUTHOR: DEE RODAS EXP COSIGNER: URGENCY: STATUS: COMPLETED ABHILASH GARAY is a 68 WHITE MALE who presents with Neuropathy, Low back pain Active Problem Primary malignant neoplasm of skin 01/24/2023 GREGG HARMON History of malignant neoplasm of th 09/14/2022 GREGG HARMON GLENN - Obstructive sleep apnea G47.3 07/21/2022 GREGG HARMON Atrial fibrillation I48.91 03/20/2022 GREGG HARMON Paresthesia R20.2 03/11/2022 GREGG HARMON Restless legs syndrome G25.81 03/11/2022 GREGG HARMON History of pulmonary embolus Z86.71 08/09/2021 GREGG HARMON Kidney stone N20.0 09/11/2020 GREGG HARMON Benign essential hypertension I10. 03/27/2018 EMELY ONOFRE Hyperlipidemia E78.5 06/27/2017 GREGG HARMON Onychomycosis of toenails L84. 03/28/2017 THOMPSON CARRANZA Gilberto Onychomycosis of toenails B35.1 12/04/2016 THOMPSON CARRANZA Low back pain M54.5 05/23/2016 GREGG HARMON Scoliosis M41.9 05/23/2016 GREGG HARMON Gastroesophageal reflux disease K21 05/11/2015 GREGG HARMON Thyroid nodule E04.1 05/11/2015 GREGG HARMON Gastroesophageal reflux disease 530 05/11/2014 GREGG HARMON THYROID NODULE 799.9 07/09/2012 GREGG HARMON Tinea Pedis * (ICD-9-CM 110.4) 110. 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 Primary complaint is low back pain. states pain across the lumbar spine states he has chronic pain across the lumbar level that radiates into both hips. states he does get radiation down posterior leg bilaterally. Location of pain intensity can vary side to side. Today he reports that it is his left low back and hip that has the worst pain. He reports that the low back will have a chronic ache with changes in weather and will be quite intense. Otherwise he will have shots of pain what he calls twinges and jabs with movement. Anitha states when he is over active his pain can be as bad as 10/10. Anitha has secondary complaint of restless leg syndrome which he reports he has had since he was a kid. Clinton states his legs feel agitated if he sits too long or sometimes in bed at night. states that the RLS can affect his sleep. Anitha also reports that he has bilateral peripheral neuropathy in his feet can get quite numb at times. 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 Clinton states he gets stabbing pain that can cause him to limp periodically. states that he has sleep apnea uses a CPAP. He reports he does well with the CPAP machine and gets approximately 9 hours of sleep per night. reports he has a good appetite but his diet could be better. Anitha is diabetic. Anitha has a history of thyroid and skin cancer. Anitha had his thyroid removed last year. states he gets cold easily. Digestion: Anitha has history of GERD but no other issues. No discomfort reported. Bowel movements regular and unremarkable. Urine normal. RESPONSE TO PREVIOUS TREATMENT. Clinton states his last treatment was again only moderately helpful. Effect lasted several days and he had a 1-2 point pain reduction. Clinton states that his knees did feel better posttreatment and that they have done fairly well since his last visit but his low back pain restless leg syndrome and bilateral neuropathy are relatively unchanged. Merry Go Round Operator discussed with Anitha future treatment and discussed the fact that he is not getting significant lasting relief with treatment. Clinton agreed that if he does not get any lasting effect within the next several visits he would take a break from treatment and try other therapies. is being referred to child care development specialist for his low back. _ OBJECTIVE General: . Patient in no apparent distress . appropriate attire . here with equanimity Skin: . No effusion/edema . No ecchymosis . No erythema MUSCULOSKELETAL: Observed . no signs of trauma Ambulation . independent ambulation . non-antalgic ambulation Physical Ability to Transfer: . Patient was able to get on/off the treatment table unassisted. Posture . no antalgic posture Extremities . functional AROM BACK / SPINE . no overt deformity of spine . no pelvic unleveling NEUROLOGIC: Mentation . A&Ox3 Gait [X]antalgic [ ]non-antalgic [ ]ataxic [ ]wheel chair, walker, cane ASSESSMENT / SUMMARY Affected Channel: Medical Decision Making (MDM) * [ ]Straightforward o [ ]Minimal = 1 self-limited or minor problem * [X]Low o - 2 or more self-limited or minor problems o - 1 stable chronic illness o - 1 acute, uncomplicated illness or injury * [ ]Moderate o - 1 or more chronic illness with exacerbation, progression or side effect from treatment o - 2 or more stable chronic illnesses o - 1 undiagnosed new problem w/uncertain prognosis o - 1 acute illness w/ systemic symptoms o - 1 acute complicated injury * [ ]High o - 1 or more chronic illnesses w/ severe exacerbation, progression, or side effect from treatment o - 1 acute or chronic illness/injury that poses threat to life or bodily function PLAN / RECOMMENDATION: Weekly treatment as schedule allows. 4-6 visits then assess Follow-up [X]1 WEEK [ ]2 WEEKS [ ]3 WEEKS [ ]1 MONTH FREQUENCY OF CARE [X]1 X WEEKLY, [ ]2 X WEEKLY [ ]Bi-Weekly, [ ]Monthly, [ ]Other Seeking: [ ]access to acupuncture for: [X]pain control [ ]frequency or [ ]as needed [ ]Stress/anxiety reduction, [ ]Other mental health [ ]Addiction/dependence: [ ]Nicotene [ ]Alcohol [ ]Chemical Patient Education: [X]Encouraged self-care management using active therapies [ ](exercises, therapeutic movement, PT, biofeedback, smoking cessation, health coaching) to manage chronic pain while engaging passive therapies (acupuncture / chiropractic / massage) to manage [ ]acute / [ ]subacute (persistent) pain [ ]Counseled not to view exercise as an analgesic, but as modalities to improve flexibility, strength, and conditioning. [ ]Additionally, counseled to stay within tolerances when doing daily tasks / exercise i.e. use pacing to moderate aggravation of sx. [ ]Attempt 2 to 3 times per week [ ]Modify as needed [ ]Refrain from exercises if aggravation or new symptoms appear [ ]Do not use acupressure over area where you have a wound, severe swelling or lump, active infection, recent blood clots, rash, or areas that are numb. However, you may use other points away from these areas. If you take medications to thin your blood, or have a bleeding or clotting disorder, only use light pressure. [ ]Self-care management encouraged by focus on self-care strategies to improve flexibility, strength and conditioning, not to view exercise as an analgesic yet modalities to improve gross motion as chronic pain undermines core movements. [ ]Discussed expected course of condition and self-care management via weight-management, healthy diet, regular exercise within patient tolerance and pragmatic use of passive modalities for short-term relief stressing not to solely rely on passive modalities. Also counseled on non-pharmacological therapies/treatments such as acupuncture / acupressure on acute episodes of pain. Furthermore, consider exercise therapy, yoga, qigong, cheyanne chi, relaxation technique and/or cognitive-behavior methodologies regarding chronic and/or persistent sub-acute pain. INSTRUCTIONS: [X]Rest, hydrate, eat [ ]BFA Patient Information Home Removal - [ ]Remove after 3 days and dispose of in approved sharpes container or comparable container - [ ]or return to clinic or PCP in three days to remove auricular needles - [ ]Pyonex Needle: remove prior to bathing per wad impregnator INFORMED CONSENT: Oral Consent obtained on Nov The patient was positioned comfortably. Oral consent was obtained. There was no evidence of infection at the site of needle insertions. Time out was conducted by Dee Rodas L.Ac. Correct patient was identified using two identifiers. Acupuncture treatment including risk/side effects, benefits, alternatives to treatment and the management plan were reviewed with the patient who expressed understanding and agreed. Correct procedure verified by the patient and the provider. PROCEDURES: Set 1 TIME SPENT: 15 Minutes Position:[X]Prone [ ]Supine [ ]Left Side [ ]Right Side [ ]Seated Chair [ ] Massage Chair Points used: [X]Ear:[ ]Left [ ]Right [ ]Bilateral [X]BFA Protocol, [ ][place] Protocol, [ ]S[place], Point Zero, Sympathetic [ ] Ear: [ ]Carmichael Men, [ ]Point Zero, [ ]Sympathetic [X]Ear Other:Standard acupuncture needles not retained [ ]Head: [ ]Neck: [ ]Torso: [ ]Hip / Glute Area: [ ]LUE: [ ]RUE: [ ]LLE: [ ]RLE: Set 2 TIME SPENT: 15 Minutes Position:[X]Prone [ ]Supine [ ]Left Side [ ]Right Side [ ]Seated Chair [ ] Massage Chair Points used: [ ]Ear:[ ]Left [ ]Right [ ]Bilateral [ ]BFA Protocol, [ ][place] Protocol, [ ][place], Point Zero, Sympathetic [ ] Ear: [ ]Carmichael Men, [ ]Point Zero, [ ]Sympathetic [ ]Ear Other: [ ]Head: [ ]Neck: [ ]Torso: [ ]Hip / Glute Area: [X]RUE: LK, DB, ZB, SI 4 [X]LUE: Leonila 5, Leonila 5.5, Leonila 6 [X]RLE: Heding, Mateo, KD 3, KD 4, KD 5, Baxie [X]LLE: Heding, Mateo, UB 65, GB 41, GB 40, GB 34, Baxie [ ]Other therapies: [ ]Cupping: [ ]Cold Laser [ ]Peizo Pen: [ ]External Qigong: [ ]TDP Lamp: [ ]Tui Na: [ ]Guasha: [ ]Nutrition Counseling: The procedures were performed and needles removed without complication. Treatment Response: [X]nominal / [ ]negative / [ ]aborted due to [ ]F/U PRN self-schedule upon unresolving re-aggravation or with degrading pain control An RTC order will be necessary if patient is seeking self-schedule beyond one year; If beyond three years, a new consult is required /yunior/ DEE RODAS LA.C DIPL.AC RESERVATION SALES AGENT Signed: 12/16/2023 08:10 DEE RODAS CNTRL TRN [facility]
--- OUTSIDE RECORDS SUMMARY | 2024-06-29 18:51 | XMS_ITS | Encounter Summary ---
Author Name [facility] [place] [facility] [place] [facility] [place] Address [address] [place] [address] Care Team Providers Care Commissioned Sales Associate Name Role Phone ABDIRAHMAN LAKE Primary Care [...] BASIC FAMIL Y Jun 24, 2009 112 [id number] [phone] ABHILASH GARAY PATIENT ANTHEM [place] F[place] PREFERRED PROVIDER ORGANIZAT ION (PPO) FEP BASIC FAM Jun 24, 2009 112 [id number] [phone] ABHILASH GARAY PATIENT ANTHEM [place] F[place] PREFERRED PROVIDER ORGANIZAT ION (PPO) FEP BASIC FAM Jun 24, 2009 112 [id number] [phone] ABHILASH GARAY PATIENT [place] PREFERRED PROVIDER ORGANIZAT ION (PPO) FEP BASIC FAM Jun 24, 2009 112 [id number] [phone] ABHILASH GARAY PATIENT [place] PREFERRED PROVIDER ORGANIZAT ION (PPO) FEP BASIC FAM Jun 24, 2009 112 [id number] [phone] CARLOS GARAYNETH PATIENT [place] F[place] PREFERRED PROVIDER ORGANIZAT ION (PPO) BASIC FAMIL Y Jun 24, 2009 112 [id number] ABHILASH GARAY PATIENT [place] PREFERRED PROVIDER ORGANIZAT ION (PPO) BASIC FAMIL Y Jun 24, 2009 112 [id number] ABHILASH GARAY PATIENT [place] PREFERRED PROVIDER ORGANIZAT ION (PPO) BASIC FAMIL Y Jun 24, 2009 112 [id number] [phone] ABHILASH GARAY PATIENT [place] FEP DENTAL DENTAL INSURANCE BASIC Jul 12, 2009 DENTAL [id number] [phone] ABHILASH GARAY PATIENT [place] PREFERRED PROVIDER ORGANIZAT ION (PPO) BASIC FAMIL Y Jun 24, 2009 112 [id number] ABHILASH GARAY PATIENT [place] FEP ([id number]) PRESCRIPT ION FEPRX Jun 24, 2009 [id number] [phone] ABHILASH GARAY PATIENT [place] FEP BCBS PRESCRIPT ION [place] FEPRX PLAN Nov 21, 2021 [id number] ABHILASH GARAY PATIENT [place] FEPRX PLAN PRESCRIPT ION CAREM ARK FEPRX Nov 21, 2021 [id number] ABHILASH GARAY PATIENT [place] BCBS PRESCRIPT ION FEP CAREM ARK Nov 21, 2021 [id number] ABHILASH GARAY PATIENT [place] BCBS PRESCRIPT ION FEP Jun 23, 2010 [id number] DEJAHDANIKACARLOS ACEVESNETH PATIENT MEDICARE (WN) MEDICARE (M) PART A Feb 22, 2020 PART A [id number] [phone] CARLOS GARAYNETH PATIENT MEDICARE (WN) MEDICARE (M) PART A Feb 22, 2020 PART A [id number] ABHILASH GARAY PATIENT MEDICARE (WNR) MEDICARE (M) PART A Feb 22, 2020 PART A [id number] ABHILASH GARAY PATIENT MEDICARE (WNR) MEDICARE (M) PART A Feb 22, 2020 PART A [id number] [phone] ABHILASH GARAY PATIENT MEDICARE (WNR) MEDICARE (M) PART A Feb 22, 2020 PART A [id number] ABHILASH GARAY PATIENT Selected Encounter This section includes the information on record at [place] for the Encounter. Date/Time Encounter Type Encounter Description Reason Provider Source Dec 17, 2023 02:00 PM SELF CARE MNGMENT TRAINING PHYSICAL THERAPY ICD-10-CM M41.9 Scoliosis, unspecified CARLOS MEDRANO Fran Encounter Template Text not used by [place] Assessments - Encounter Diagnoses This section includes the primary and secondary diagnoses documented for the Encounter. Date/Time Primary/Secondary Diagnosis Diagnosis Name Provider Source Dec 17, 2023 03:11 PM PRIMARY Scoliosis, unspecified CARLOS MEDRANO [facility] Plan of Treatment: Future Appointments (+ 6 months) and Future Tests (+/- 45 days) The Plan of Treatment section includes future care activities for the [facility] [place] [facility] This section includes future appointments and future orders which are active, pending or scheduled. Future Appointments This section includes appointments that were scheduled to occur 6 months from the date of the Encounter, up to a maximum of 20 appointments. The data comes from all [place] treatment facilities. Appointment Date/Time Appointment Type Appointme nt Facility Name Dec 18, 2023 01:00 PM AMBULATORY [place]ICINE [place] [facility] [place] [facility] Dec 22, 2023 10:30 AM [facility]ORY - MEDICINE [facility] Dec 31, 2023 08:15 PM AMBULATORY - MEDICINE [facility] [place] [facility] Jan 01, 2024 01:00 PM AMBULATORY - MEDICINE [place] [facility] [place] [facility] Jan 02, 2024 09:30 AM AMBULATORY - REHAB [facility] Jan 07, 2024 03:00 PM AMBULATORY - REHAB [facility] Jan 08, 2024 01:00 PM [facility] [facility] [place] [facility] Jan 09, 2024 11:00 AM AM[facility]ULAT[facility]INE [facility] [place] [facility] Jan 13, 2024 11:00 AM AM[facility]ULATORY [facility]ICINE [facility] [place] [facility] Jan 14, 2024 03:00 PM AM[facility]ORY [facility] Jan 21, 2024 03:00 PM [facility] Jan 28, 2024 11:00 AM AM[facility]ULATORY [facility] [place] [facility] Jan 30, 2024 08:00 AM [facility] Feb 02, 2024 02:00 PM AMBULATORY - MEDICINE [facility] [place] [facility] Feb 04, 2024 11:00 AM AMBULATORY - MEDICINE [facility] [place] [facility] Feb 09, 2024 11:30 AM AMBULATORY - MEDICINE [facility] [place] [facility] Feb 09, 2024 02:00 PM AMBULATORY - MEDICINE [facility] [place] [facility] Feb 19, 2024 01:00 PM AMBULATORY - MEDICINE [facility] [place] [facility] Feb 25, 2024 11:00 AM AMBULATORY - NONE [facility] [place] [facility] Mar 04, 2024 01:00 PM AMBULATORY - MEDICINE [facility] [place] [facility] Social History: Smoking Status (Most current) [...] Date/Time Current Smoking Status Comment Odalis casey Aug 18, 2020 10:00 AM VA-TOBACCO NEVER USED [facility] Tobacco Use History This section includes a history of the smoking, or tobacco-related health factors, that were collected on or before the date of the Encounter. The data comes from the [place] facility where the Encounter took place. Date/Time Smoking Status/Tobacco Use Comment Gilberto acjaved Dec 15, 2018 12:14 PM VA-TOBACCO NEVER USED [facility] Jun 11, 2017 04:15 PM LIFETIME NON-TOBACCO USER [facility] Jan 01, 2016 11:12 AM LIFETIME NON-TOBACCO USER [facility] Jan 16, 2005 08:54 AM LIFETIME NON-SMOKER [facility] Nov 29, 2003 08:05 AM LIFETIME NON-SMOKER [facility] Jan 07, 2001 08:33 AM LIFETIME NON-SMOKER [facility] Encounter Notes: All associated encounter notes This section contains the clinical notes associated to the Encounter. Date/Time Encounter Note(s) Provider Source Dec 17, 2023 12:54 PM PHYSICAL THERAPY C ONSULT: LOCAL TITLE: PHYSICAL THERAPY CONSULT STANDARD TITLE: PHYSICAL THERAPY CONSULT DATE OF NOTE: DEC 17, 2023@12:54 ENTRY DATE: DEC 17, 2023@12:54:13 AUTHOR: CARLOS MEDRANO EXP COSIGNER: URGENCY: STATUS: COMPLETED Initial Evaluation date: 12/17/23 Progress Note Date: 01/16/24 Treatment #: eval Treatment time: 48 Diagnosis:Scoliosis, unspecified(ICD-10-CM M41.9) Provider:VESTA BLISS PT Treatment Precautions: Patient identified by full name and date of goes by Carlos or Abhilash Vitals: HR: 78 BP: 150/80 SUBJECTIVE: History of Current injury: Patient states they have a chronic 10+ yr history of lower back pain. Patient states the lower back pain is mostly R sided and travels to the front of both knees. Patient states they have difficulty walking for prolonged periods of time. Patient states sitting tends to alleviate their symptoms. Patient states they have neuropathy in both feet and have had this for a few years now with no specific cause. Patient states the neuropathy is most prominent in their toes, denies neuropthy symptoms in the feet of the lower legs. Patient denies major trauma or past surgical procedures to the lower back or the hips. Patient denies saddle paresthesia and denies recent unexplained changes to bowel/bladder function. 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 [employer] Patient Goal: learn what they can do to alleviate their pain Number of days per week with pain: 12/27 SANE report Please rate your ability to use your injured area on a 0% to 100% scale, with 0% being unable to use the injured area and 100% being normal use of injured area in your daily activity: 40-50% OBJECTIVE: Red flags: Recent Trauma - Age (50+)+ Hx of Cancer + Fever/chills/night sweats - Unexplained weight loss- Recent infection- Immunosuppression- Night pain- Saddle anesthesia - Bowel/bladder dysfunction - LE neurological deficit - Psychosocial flags: mental health - entrenched/unhelpful beliefs about pain- clinically relevant catastrophization- signs of kinesiophobia- Gait: wide RACHEL, short shuffling steps, foot flat strike Neuro: patellar and achilles normal 2+ - clonus * = pain during testing ROM: Lumbar Flexion 75% limitation* Lumbar Extension 75% limitation Lumbar Left side bend 75% limitation* Lumbar Right side bend 75% limitation* Lumbar Left rotation 75% limitation* Lumbar Right rotation 75% limitation* Hip ROM: Hip flexion(120): L: 120 R: 120 Hip Abduction(40): L: R: Hip Internal rotation(30): L: 20 R: 20 Hip external rotation(30): L: 30 R: 30 Hip Extension(20): L: 0 R:0 Lumbar/Hip Special Tests: SLUMP - SLR + RLE Sign of the Buttock - CHRIS - Scour - FADDIR - CHASITY JESÚS 90/90 HS LEG LENGTH [place] Strength: Hip flexion L: 5/5 R: 5/5 Knee extension: L: 5/5 R: 5/5 Knee flexion L: 5/5 R: 5/5 Ankle DF L: 5/5 R: 5/5 Ankle INV L: 5/5 R: 5/5 Ankle EV L: 5/5 R: 5/5 Hip ER L: 4/5 R: 4/5 Hip ABD L: 4/5 R: 4/5 Hip Extension L: /5 R: /5 Glute Max: L: /5 R: /5 Palpation: Joint Mobility: Directional Preference: Extension bias (-) Symptoms distal to the buttock Symptoms centralize with lumbar extension Symptoms peripheralize with lumbar flexion Flexion bias (+) Older age >50 years Imaging evidence of spinal stenosis Symptoms worsen with lumbar extension Lumbar Traction Test Cluster (identified positive variables) (-) Pain in the leg Signs of nerve root compression Peripheralization of symptoms with lumbar extension movements Positive Crossed SLR Lumbar Stenosis Test Cluster (-) Bilateral symptoms Leg pain>back pain Pain during walking/standing Pain relief upon sitting >48 years old Sacroiliac joint dysfunction Sarah Finger Test (-) (-) Trendelenburg (-) (-) INTERVENTIONS: Therapeutic Exercise: Mins: Manual therapy: Mins: Neuro re-ed: Mins: Other: Mins: Modalities: Mins: [] contraindication screen completed prior to modality [] skin intact pre/post modality Access Code: [email or web address] URL: [email or web address] Date: 12/17/2023 Prepared by: Carlos Medrano Exercises - Seated Hamstring Stretch - 1 x daily - 7 x weekly - 2-3 sets - 30 hold - Seated Piriformis Stretch - 1 x daily - 7 x weekly - 2-3 sets - 30 hold - Seated Figure 4 Piriformis Stretch - 1 x daily - 7 x weekly - 2-3 sets - 30 hold - Seated Hip Abduction with Resistance - 1 x daily - 7 x weekly - 2-3 sets - 15-20 hold - Standing Hip Abduction with Counter Support - 1 x daily - 7 x weekly - 2-3 sets - 10-15 reps - Standing Gastroc Stretch at Counter - 1 x daily - 7 x weekly - 2-3 sets - 30 hold Patient education: Mins: 15 Discussed potential etiology of symptoms with patient including potential structures involved and how this relates to exercises prescribed and POC discussing frequency and duration of services to be provided with patient verbalizing good understanding and agreement with POC. Provided written HEP to patient with therex from today reviewing proper form sets reps and frequency and safety precautions with patient verbalizing and demonstrating good understanding in clinic. Provided verbal instruction and demonstration for safe use of rollator including to remain close to rollator while ambulating and turning, how to use brakes to slow down while walking and to lock the brakes prior to all transfers. Patient verbalizes and demonstrates good understanding. ASSESSMENT: Patient is a 68yo seen for physical therapy evaluation following referral for lower back pain and neuropathy in both feet. PMH significant for Primary malignant neoplasm of skin, History of malignant neoplasm of thyroid, GLENN - Obstructive sleep apnea, Atrial fibrillation, Paresthesia, Restless legs syndrome, History of pulmonary embolus, Kidney stone, Benign essential hypertension, Hyperlipidemia, Onychomycosis of toenails, Low back pain, Scoliosis, Gastroesophageal reflux disease, Thyroid nodule, Tinea Pedis, Ulcer of other part of Foot, Cellulitis and abscess of foot, Osteoarthritis, Dermatitis or Eczema, Color Blindness, LIVER CYST, Back Strain, Kidney Stones, Scoliosis, HYPERLIPIDEMIA Patient presents with primary complaint of R sided lower back pain as well as secondary complaints of neuropathy on btoh feet and bilateral anterior knee pain. Pain rated 2/10 at curent and at best, 5/10 at worst on NPRS. Primary aggravating factors include prolonged standing and prolonged walking. On physical assessment, patient primary symptoms reproduced with all repeated lumbar motions, SLR RLE. Additional impairments that may contribute to condition include impaired lumbar and and hip ROM, impaired posterior chain flexibiulity, impaired hip flexor flexibility, impaired abdominal and gluteal strenght. Based on patient hx and findings of assessment, symptoms in lower back appear most consistent with lumbar spinal stenosis. Today, provided patient with flexion based HEP to address impairments listed above, as well as a dolomite maxi rollator ensuring proper size and providing education for its use as described in patient education with the goal of improiving patient ability to walk longer distance sofr some cardiovascular exercise. Patient reports these symptoms impact their ability to complete their normal daily tasks like prolonged standing and prolonged walking. Patient requires skilled physical therapy services in order to address these impairments ad activity limitations and to achieve patient goal of learn what they can do to alleviate their pain GOALS: in 4-6weeks, patient will demonstrate: consistent carryover of HEP 5/7 days per week with patient able to independently teach back 75% of exercises 2pt decrease in pain level at worst to improve patient ability to complete most symptomatic tasks 10% improvement on SANE score to improve patient ability to complete typical daily tasks decrease in total days with pain by 2 days to improve patient QOL 25% improvement in lumbar flexion ROM 25% improvment in lumbar extension ROM 1/2 grade imrpovement in hip ER MMT 1/2 grade improvement in hip ABD MMT PLAN: Discussed POC with patient who verbalizes agreement with skilled PT services [id number] with flexion based therex program focusing on improving lumbar ROM, imporving posterior chain flexibility, progressive abdominal and gluteal strenghtening, HEP teaching and progression, patient education. [x]Low impact cardio: [x]Nustep []Recumbent bike []Recumbent elliptical []TM []Manual: []STM/DTM []METs/SCS []IASTM []Joint mobilizations [x]Therex: []Progressive UQ [x]Progressive Core [x]Progressive LQ []UQ flex [x] Lumbar flex [x]LQ flex []Foam rolling []Proprioception []Neuro Re-education: []Static []Dynamic []Dual-Task [x]Education: [x]Posture []Ergonomics [x]Bodymechanics [x]Self-care strategies []PNE []Modalities(PRN): []Heat/Ice []Estim/Tens []Mechanical traction []K-tape [] Biofreeze /es/ CARLOS MEDRANO PT, DPT PHYSICAL THERAPIST Signed: 12/17/2023 15:11 CARLOS MEDRANO [facility]
--- OUTSIDE RECORDS SUMMARY | 2024-06-29 18:51 | XMS_ITS | Encounter Summary ---
Author Name [facility] [place] [facility] [place] Address [address] [place] [address] Care Team Providers Care Director Speech Language Name Role Phone [place] Primary Care [...] BASIC FAMIL Y Jun 24, 2009 [id number] [phone] ABHILASH GARAY PATIENT ANTHEM [place] F[place] PREFERRED PROVIDER ORGANIZAT ION (PPO) FEP BASIC FAM Jun 24, 2009 112 [id number] [phone] ABHILASH GARAY PATIENT ANTHEM [place] F[place] PREFERRED PROVIDER ORGANIZAT ION (PPO) FEP BASIC FAM Jun 24, 2009 112 [id number] [phone] ABHILASH GARAY PATIENT ANTHEM [place] F[place] PREFERRED PROVIDER ORGANIZAT ION (PPO) FEP BASIC FAM Jun 24, 2009 112 [id number] [phone] ABHILASH GARAY PATIENT [place] F[place] PREFERRED PROVIDER ORGANIZAT ION (PPO) FEP BASIC FAM Jun 24, 2009 112 [id number] [phone] ABHILASH GARAY PATIENT [place] FEP PREFERRED PROVIDER ORGANIZAT ION (PPO) BASIC FAMIL Y Jun 24, 2009 [id number] ABHILASH GARAY PATIENT [place] PREFERRED PROVIDER ORGANIZAT ION (PPO) BASIC FAMIL Y Jun 24, 2009 112 [id number] ABHILASH GARAY PATIENT [place] PREFERRED PROVIDER ORGANIZAT ION (PPO) BASIC FAMIL Y Jun 24, 2009 112 [id number] [phone] ABHILASH GARAY PATIENT [place] FEP DENTAL DENTAL INSURANCE BASIC Jul 12, 2009 DENTAL [id number] ABHILASH GARAY PATIENT [place] PREFERRED PROVIDER ORGANIZAT ION (PPO) BASIC FAMIL Y Jun 24, 2009 [id number] ABHILASH GARAY PATIENT [place] FEP ([id number]) PRESCRIPT ION FEPRX Jun 24, 2009 [id number] [phone] ABHILASH GARAY PATIENT [place] FEP BCBS PRESCRIPT ION CAR[place] FEPRX PLAN Nov 21, 2021 [id number] ABHILASH GARAY PATIENT [place] FEPRX PLAN PRESCRIPT ION CAREM ARK FEPRX Nov 21, 2021 [id number] ABHILASH GARAY PATIENT [place] BCBS PRESCRIPT ION FEP CAREM ARK Nov 21, 2021 [id number] ABHILASH GARAY PATIENT [place] BCBS PRESCRIPT ION FEP Jun 23, 2010 [id number] RUBI GARAYNETH PATIENT MEDICARE (WN) MEDICARE () PART A Feb 22, 2020 PART A [id number] ABHILASH GARAY PATIENT MEDICARE (WN) MEDICARE () PART A Feb 22, 2020 PART A [id number] ABHILASH GARAY PATIENT MEDICARE (WNR) MEDICARE (M) PART A Feb 22, 2020 PART A [id number] ABHILASH GARAY PATIENT MEDICARE (WNR) MEDICARE (M) PART A Feb 22, 2020 PART A [id number] [phone] ABHILASH GARAY PATIENT MEDICARE (WNR) MEDICARE (M) PART A Feb 22, 2020 PART A [id number] ABHILASH GARAY PATIENT Selected Encounter This section includes the information on record at [place] for the Encounter. Date/Time Encounter Type Encounter Description Reason Provider Source Dec 02, 2023 02:30 PM INFRARED THERAPY CI[facility] TREATMENT ICD-10-CM M25.569 Pain in unspecified knee MANOHARUNJOSE MANUEL GALLEGOSO PHER M IHE Encounter Template Text not used by [place] Assessments - Encounter Diagnoses This section includes the primary and secondary diagnoses documented for the Encounter. Date/Time Primary/Secondary Diagnosis Diagnosis Name Provider Source Jan 01, 2024 10:42 AM PRIMARY Pain in unspecified knee GAUNYA,GRACE PHER M [facility] [place] [facility] Jan 01, 2024 10:42 AM SECONDARY Low back pain, unspecified GAUNYA,GRACE PHER M [facility] [place] [facility] Jan 01, 2024 10:42 AM SECONDARY Pain in left knee GAUNYAJOSE MANUELO PHER M [facility] [place] [facility] Jan 01, 2024 10:42 AM SECONDARY Pain in right knee GAUNYAJOSE MANUELO PHER M [facility] [place] [facility] Jan 01, 2024 10:42 AM SECONDARY Paresthesia of skin MANOHARUNYAJOSE MANUELO PHER M [facility] [place] [facility] Plan of Treatment: Future Appointments (+ 6 months) and Future Tests (+/- 45 days) The Plan of Treatment section includes future care activities for the patient from all [facility] treatment[facility]ilities. This section includes future appointments and future orders which are active, pending or scheduled. Future Appointments This section includes appointments that were scheduled to occur 6 months from the date of the Encounter, up to a maximum of 20 appointments. The data comes from all [place] treatment facilities. Appointment Date/Time Appointment Type Appointme nt Facility Name Dec 04, 2023 01:00 PM AMBULATORY - MEDICINE [facility] [place] [facility] Dec 08, 2023 11:00 AM AMBULATORY - MEDICINE [facility] [place] [facility] Dec 11, 2023 01:00 PM AMBULATORY - MEDICINE [facility] [place] [facility] Dec 15, 2023 11:00 AM AMBULATORY - MEDICINE [facility] [place] [facility] Dec 15, 2023 03:00 PM AMBULATORY - MEDICINE [facility] [place] [facility] Dec 17, 2023 02:00 PM [facility]ORY [facility] Dec 18, 2023 01:00 PM AMBULATORY - MEDICINE [facility] [place] [facility] Dec 22, 2023 10:30 AM [facility]ATORY [facility] Dec 31, 2023 08:15 PM AMBULATORY - MEDICINE [facility] [place] [facility] Jan 01, 2024 01:00 PM AMBULATORY - MEDICINE [facility] [place] [facility] Jan 02, 2024 09:30 AM AMBULATORY - RE[facility] Jan 07, 2024 03:00 PM AMBULATORY - [facility] Jan 08, 2024 01:00 PM AMBULATORY - MEDICINE [facility] [place] [facility] Jan 09, 2024 11:00 AM AMBULATORY - MEDICINE [facility] [place] [facility] Jan 13, 2024 11:00 AM AMBULATORY - MEDICINE [facility] [place] [facility] Jan 14, 2024 03:00 PM AMBULATORY - [facility] Jan 21, 2024 03:00 PM AMBULATORY - [facility] Jan 28, 2024 11:00 AM AMBULATORY - MEDICINE [facility] [place] [facility] Jan 30, 2024 08:00 AM [facility]ULATORY [facility] Feb 02, 2024 02:00 PM AMBULATORY - MEDICINE [facility] [place] [facility] Social History: Smoking Status (Most current) and Tobacco Use (All prior to encounter date) This section includes the most current, and the historical, smoking and tobacco- related health factors from the [place] facility where the Encounter took place. Current Smoking Status This section includes the most current smoking, or tobacco-related health factor, from the [place] facility where the Encounter took place. Date/Time Current Smoking Status Comment Odalis casey Apr 08, 2023 09:12 AM VA-TOBACCO NEVER USED [facility] Tobacco Use History This section includes a history of the smoking, or tobacco-related health factors, that were collected on or before the date of the Encounter. The data comes from the [place] facility where the Encounter took place. Date/Time Smoking Status/Tobacco Use Comment Gilberto boston Aug 09, 2021 09:20 AM VA-TOBACCO NEVER USED [facility] Encounter Notes: All associated encounter notes This section contains the clinical notes associated to the Encounter. Date/Time Encounter Note(s) Provider Source Dec 02, 2023 03:35 PM ACUPUNCTURE NOTE: LOCAL TITLE: ACUPUNCTURE TREATMENT STANDARD TITLE: ACUPUNCTURE NOTE DATE OF NOTE: DEC 02, 2023@15:35 ENTRY DATE: DEC 02, 2023@15:35:40 AUTHOR: DEE RODAS EXP COSIGNER: URGENCY: STATUS: COMPLETED ABHILASH GARAY is a 68 WHITE MALE who presents with Neuropathy, Low back pain Active Problem Primary malignant neoplasm of skin 01/24/2023 GREGG HARMON History of malignant neoplasm of th 09/14/2022 GREGG HARMON [place] - Obstructive sleep apnea G47.3 07/21/2022 EDENGREGG OREILLY Atrial fibrillation I48.91 03/20/2022 GREGG HARMON Paresthesia R20.2 03/11/2022 GREGG HARMON Restless legs syndrome G25.81 03/11/2022 GREGG HARMON History of pulmonary embolus Z86.71 08/09/2021 GREGG HARMON Kidney stone N20.0 09/11/2020 GREGG HARMON Benign essential hypertension I10. 03/27/2018 EMELY ONOFRE Hyperlipidemia E78.5 06/27/2017 GREGG HARMON Onychomycosis of toenails L84. 03/28/2017 THOMPSON CARRANZA Onychomycosis of toenails B35.1 12/04/2016 ROSS,THOMPSON F Low back pain M54.5 05/23/2016 GREGG HARMON [...] complaints. Primary complaint is low back pain. [place] states pain across the lumbar spine states [...] have shots of pain what he calls twinlena and jabs with movement. Anitha states when he is over active his pain can be as bad as 10/10. Anitha has secondary complaint of restless leg syndrome which he reports he has had since he was a kid. Anitha states his legs feel agitated if he sits too long or sometimes in bed at night. [place] states that the RLS can affect his sleep. Anitha also reports that he has bilateral peripheral neuropathy in his feet can get quite numb at times. 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 states he gets stabbing pain that can cause him to limp periodically. Anitha states that he has sleep apnea uses a CPAP. He reports he does well with the CPAP machine and gets approximately 9 hours of sleep per night. Anitha reports he has a good appetite but his diet could be better. Anitha is diabetic. Anitha has a history of thyroid and skin cancer. Anitha had his thyroid removed last year. [place] states he gets cold easily. Digestion: Anitha has history of GERD but no other issues. No discomfort reported. Bowel movements regular and unremarkable. Urine normal. RESPONSE TO PREVIOUS TREATMENT. Anitha states his last treatment was moderately more helpful than the previous but pain did return to pretreatment levels. In addition Anitha states that he is having elevated knee pain bilaterally. Both knees are very painful around the patella. Anitha has visible difficulty walking. _ OBJECTIVE General: . 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
--- OUTSIDE RECORDS SUMMARY | 2024-06-29 18:52 | XMS_ITS | Encounter Summary ---
Author Name [facility] Organization [facility] Address [address] [place] [address] Care Team Providers Care Car Dropper Name Role Phone ABDIRAHMAN [place] Primary Care [...] BASIC FAMIL Y Jun 24, 2009 [id number] [phone] ABHILASH GARAY PATIENT ANTHEM [place]BS [place] F[place] PREFERRED PROVIDER ORGANIZAT ION (PPO) FEP BASIC FAM Jun 24, 2009 112 [id number] [phone] ABHILASH GARAY PATIENT ANTHEM [place] PREFERRED PROVIDER ORGANIZAT ION (PPO) FEP BASIC FAM Jun 24, 2009 [id number] [phone] ABHILASH GARAY PATIENT [place]THE[place] PREFERRED PROVIDER ORGANIZAT ION (PPO) FEP BASIC FAM Jun 24, 2009 [id number] [phone] ABHILASH GARAY PATIENT [place] PREFERRED PROVIDER ORGANIZAT ION (PPO) FEP BASIC FAM Jun 24, 2009 112 [id number] [phone] RUBI GARAYNETH PATIENT [place] F[place] PREFERRED PROVIDER ORGANIZAT ION (PPO) BASIC FAMIL Y Jun 24, 2009 [id number] ABHILASH GARAY PATIENT [place] PREFERRED PROVIDER ORGANIZAT ION (PPO) BASIC FAMIL Y Jun 24, 2009 [id number] ABHILASH GARAY PATIENT [place] PREFERRED PROVIDER ORGANIZAT ION (PPO) BASIC FAMIL Y Jun 24, 2009 [id number] ABHILASH GARAY PATIENT [place] F[place] DENTAL DENTAL INSURANCE BASIC Jul 12, 2009 DENTAL [id number] ABHILASH GARAY PATIENT [place] PREFERRED PROVIDER ORGANIZAT ION (PPO) BASIC FAMIL Y Jun 24, 2009 [id number] ABHILASH GARAY PATIENT [place] FEP ([id number]) PRESCRIPT ION FEPRX Jun 24, 2009 [id number] [phone] ABHILASH GARAY PATIENT [place] FEP BCBS PRESCRIPT ION CAR[place] FEPRX PLAN Nov 21, 2021 [id number] ABHILASH GARAY PATIENT [place] FEPRX PLAN PRESCRIPT ION CAREM ARK FEPRX Nov 21, 2021 [id number] ABHILASH GARAY PATIENT [place]-F [place] BCBS PRESCRIPT ION FEP CAREM ARK Nov 21, 2021 [id number] ABHILASH GARAY PATIENT [place] BCBS PRESCRIPT ION FEP Jun 23, 2010 [id number] DEJAHDANIKARUBI ACEVESNETH PATIENT MEDICARE (WNR) MEDICARE (M) PART A Feb 22, 2020 PART A [id number] RUBI GARAYNETH PATIENT MEDICARE (WN) MEDICARE (M) PART A Feb 22, 2020 PART A [id number] [id number] ABHILASH GARAY PATIENT MEDICARE (WNR) MEDICARE (M) PART A Feb 22, 2020 PART A [id number] ABHILASH GARAY PATIENT MEDICARE (WNR) MEDICARE (M) PART A Feb 22, 2020 PART A [id number] [phone] ABHILASH GARAY PATIENT MEDICARE (WNR) MEDICARE (M) PART A Feb 22, 2020 PART A [id number] ABHILASH GARAY PATIENT Selected Encounter This section includes the information on record at [place] for the Encounter. Date/Time Encounter Type Encounter Description Reason Provider Source Dec 22, 2023 10:30 AM OFFICE O/P EST MOD 30 MIN PRIMARY CARE/MEDICINE ICD-10-CM M54.50 Low back pain, unspecified VESTA BLISS Fran Encounter Template Text not used by [place] Assessments - Encounter Diagnoses This section includes the primary and secondary diagnoses documented for the Encounter. Date/Time Primary/Secondary Diagnosis Diagnosis Name Provider Source Dec 22, 2023 11:08 AM PRIMARY Low back pain, unspecified VESTA BLISS [facility] Dec 22, 2023 11:08 AM SECONDARY Essential (primary) hypertension VESTA BLISS [facility] Dec 22, 2023 11:08 AM SECONDARY Unspecified atrial fibrillation VESTA BLISS [facility] Plan of Treatment: Future Appointments (+ 6 [...] Appointment Type Appointme nt Facility Name Dec 31, 2023 08:15 PM AMBULATORY [facility] Jan 01, 2024 01:00 PM [facility] Jan 02, 2024 09:30 AM AMBULATORY - [facility]AB [facility] Jan 07, 2024 03:00 PM AMBULATORY - REHAB MEDICIN [facility] Jan 08, 2024 01:00 PM [facility] Jan 09, 2024 11:00 AM [facility] Jan 13, 2024 11:00 AM [facility] Jan 14, 2024 03:00 PM AMBULATORY - REHAB MEDICIN [facility] Jan 21, 2024 03:00 PM AMBULATORY - REHAB MEDICIN [facility] Jan 28, 2024 11:00 AM [facility] Jan 30, 2024 08:00 AM AMBULATORY - MEDICINE [facility] Feb 02, 2024 02:00 PM [facility]IC[facility] Feb 04, 2024 11:00 AM [facility] Feb 09, 2024 11:30 AM [facility]IC[facility] Feb 09, 2024 02:00 PM AM[facility]UL[facility]ORY [facility]IC[facility] Feb 19, 2024 01:00 PM AM[facility]UL[facility]ORY [facility] Feb 25, 2024 11:00 AM AMBULATORY - NONE [facility] Mar 04, 2024 01[facility]00 PM AM[facility]ULATORY [facility]IC[facility] Mar 09, 2024 01:00 PM AMBULATORY [facility]IC[facility] Mar 11, 2024 11:00 AM AMBULATORY - MEDICINE [facility] Vital Signs: All taken on the encounter date This section contains inpatient and outpatient Vital Signs collected on the date of the Encounter. Date/Time Temperature Pulse Blood Pressure Respiratory Rate SP02 Pain Height Weight Body Mass Index Source Dec 22, 2023 10:19 AM 97.5 80 138/76 95 255.4 33 [place] Social History: Smoking Status (Most current) and [...] Odalis casey Aug 18, 2020 10:00 AM [place]-TOBACCO NEVER USED [facility] Tobacco Use History This section includes a history of the smoking, or tobacco-related health factors, that were collected on or before the date of the Encounter. The data comes from the [place] facility where the Encounter took place. Date/Time Smoking Status/Tobacco Use Comment F acility Dec 15, 2018 12:14 PM VA-TOBACCO NEVER USED [facility] Jun 11, 2017 04:15 PM LIFETIME NON-TOBACCO USER [facility] Jan 01, 2016 11:12 AM LIFETIME NON-TOBACCO USER [facility] Jan 16, 2005 08:54 AM LIFETIME NON-SMOKER [facility] Nov 29, 2003 08:05 AM LIFETIME NON-SMOKER [facility] Jan 07, 2001 08:33 AM LIFETIME NON-SMOKER [facility] Encounter Notes: All associated encounter notes This section contains the clinical notes associated to the Encounter. Date/Time Encounter Note(s) Provider Source Dec 22, 2023 10:04 AM PHYSICIAN NOTE: LOCAL TITLE: MD NOTE STANDARD TITLE: PHYSICIAN NOTE DATE OF NOTE: DEC 22, 2023@10:04 ENTRY DATE: DEC 22, 2023@10:04:53 AUTHOR: VESTA BLISS EXP COSIGNER: URGENCY: STATUS: COMPLETED HISTORY OF PRESENT ILLNESS: first time seen , transferred from Dr Marshall ABHILASH GARAY, is a 68 yo MALE [place], who presents at the [facility] to meet the new PCP. 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 urologist outside [place] Active problems - Computerized Problem List is the source for the followin-Chronic low back pain 2-HTN 3-Atrial fibrilation on anticoagulation -comanaged The following VA and Non-VA meds were reconciled with patient: Active Outpatient Medications (including Supplies): Issue Date Status Last Fill Active Outpatient Medications Refills Expiration === 1) ALLOPURINOL 100MG TAB Qty: 90 for 90 ACTIVE Issu:05-22-23 days Sig: TAKE ONE TABLET BY MOUTH Refills: 1 Last:12-11-23 ONCE DAILY FOR GOUT Expr:05-22-24 2) ATORVASTATIN CALCIUM 10MG TAB Qty: 90 ACTIVE (S) Issu:11-03-23 for 90 days Sig: TAKE ONE TABLET BY Refills: 3 Last:01-01-24 MOUTH AT BEDTIME FOR HIGH CHOLESTEROL Expr:11-03-24 3) DILTIAZEM (EQV-CARDIZEM) 120MG 24HR CAP ACTIVE (S) Issu:11-03-23 Qty: 90 for 90 days Sig: TAKE ONE Refills: 3 Last:01-22-24 CAPSULE BY MOUTH ONCE DAILY FOR HIGH Expr:11-03-24 BLOOD PRESSURE 4) LEVOTHYROXINE NA (SYNTHROID) 125MCG TAB ACTIVE (S) Issu:10-16-23 Qty: 90 for 90 days Sig: TAKE ONE Refills: 2 Last:01-04-24 TABLET BY MOUTH EVERY MORNING 30 Expr:10-16-24 MINUTES BEFORE BREAKFAST FOR THYROID TAKE ON AN EMPTY STOMACH WITH A FULL GLASS OF WATER 5) METOPROLOL SUCCINATE 50MG SA TAB Qty: ACTIVE Issu:11-03-23 90 for 90 days Sig: TAKE ONE TABLET Refills: 3 Last:12-11-23 BY MOUTH ONCE DAILY FOR BLOOD Expr:11-03-24 PRESSURE/HEART 6) POTASSIUM CITRATE 10MEQ SA TAB Qty: 100 ACTIVE Issu:11-28-23 for 25 days Sig: TAKE TWO TABLETS BY Refills: 1 Last:11-28-23 MOUTH TWICE DAILY Expr:11-28-24 7) RIVAROXABAN 20MG TAB Qty: 90 for 90 ACTIVE Issu:11-03-23 days Sig: TAKE ONE TABLET BY MOUTH Refills: 3 Last:11-03-23 ONCE DAILY TO PREVENT BLOOD CLOTS Expr:11-03-24 (TAKE WITH FOOD) Start Date Active Non-VA Medications Refills Expiration === 1) Non-VA FISH OIL 500MG DHA/EPA CAP,ORAL ACTIVE Sig: BY MOUTH DAILY 2) Non-VA MULTIVITAMIN/MINERALS CAP/TAB ACTIVE Si TABLET BY MOUTH EVERY DAY 3) Non-VA NIACIN TAB Sig: BY MOUTH ACTIVE 10 Total Medications ALLERGIES: ========= Patient has answered NKA LAB HISTORY: No new labs HISTORY: PERIOD OF SERVICE - [facility] FROM Feb TO Mar COMBAT SERVICE INDICATED: No REVIEW OF SYSTEMS: No fever, chills No chest pain, shortness of breath at rest or No cough No abdominal pain nausea or vomiting chronic low back pain on & off , no radiation in legs No headaches or dizziness; positive for chronic b/l toes tingling PHYSICAL EXAMINATION: WD/obese seems to be in NAD S1-S2 positive, RRR ANDI, CTA bilateral Abdomen soft nontender to palpation, obese No edema lower extremities; bilateral lower extremities varicose veins AAO x3;ambulates without help Negative for tenderness to palpation and percussion LS spine ASSESSMENT/PLAN: 1-Chronic low back pain -he tried in the past chiropractor, physical therapy at this moment doing acupuncture He would like to try aqua therapyphysical therapy consultation placed MRI of LS spine ordered Salonpas patches ordered 2-HTN-blood pressure controlled today in office Continue current medications Advised to decrease salt intake He has limited exercise ability due to his chronic low back pain He admits of not monitoring blood pressure at home 3-Atrial fibrilation on anticoagulation-heart rate controlled today Continue current medications No bleeding signs reported by patient Tolerating anticoagulation very well, w/o bleeding signs -comanaged FOLLOW UP: ========= RTC - follow-up in February for chronic medical condition fasting labs Today's documentation was made using voice recognition software. This note may contain spelling/grammatical errors secondary to this software. Every effort is made to correct errors, but if mistakes are found they need to be taken in context. UPCOMING APPOINTMENTS: 12/22/2023 10:30 CWM/SO/PACT EIGHT WH 01/02/2024 09:30 CWM/SO/PHYSICAL THERAPY C 01/07/2024 15:00 CWM/SO/PHYSICAL THERAPY C 01/09/2024 11:00 CWM/NO/CHIROPRACTOR 01/14/2024 15:00 CWM/SO/PHYSICAL THERAPY C 01/21/2024 15:00 CWM/SO/PHYSICAL THERAPY C 01/28/2024 11:00 CWM/NO/ACUPUNCTURE R2 01/30/2024 08:00 CWM/SO/PODIATRY/ROSS 02/04/2024 11:00 CWM/NO/ACUPUNCTURE R2 02/09/2024 11:30 NHM/OPTOMETRY/BORASKI 02/18/2024 11:00 CWM/NO/ACUPUNCTURE R2 03/17/2024 10:30 CWM/NO/ACUPUNCTURE R1 04/06/2024 10:30 CWM/SO/PACT EIGHT WH No barriers; Patient understands and agrees to current treatment plan. If pt has any questions, concerns, or changes in current health status he/she will call or come in to the VA. Medication Reconciliation: Outpatient: Has the patient been taking medications as documented in the EMLR? YES: The patient has been taking medications as documented in the EMLR. Essential Medication List for Review used to complete this medication reconciliation. INCLUDED IN THIS LIST: Alphabetical list of active outpatient prescriptions dispensed from this VA (local) and dispensed from another VA or DoD facility (remote) as well as [...] JLV. Allergies/ADRs (Tool #5) FACILITY ALLERGY/ADR -------- [facility] NO KNOWN ALLERGIES [facility] No Known Allergies [facility] NO KNOWN ALLERGIES Med Recon NoGloary (Tool #1) INCLUDED IN THIS LIST: Alphabetical list of active outpatient prescriptions dispensed from this [place] (local) and dispensed from another [place] or [facility] facility (remote) as well as inpatient orders (local pending and active), local clinic medications, locally documented non-VA medications, and local prescriptions that have or been discontinued in the past 90 days. Non-VA Meds Last Documented On: Mar 11, 2022 NOTE The display of VA prescriptions dispensed from another VA or DoD facility (remote) is limited to active outpatient prescription entries matched to National Drug File at the originating site and may not include some items such as investigational drugs, compounds, etc. NOT INCLUDED IN THIS LIST: Medications self-entered by the patient into personal health records (i.e. [place]) are NOT included in this list. Non-VA medications documented outside this [place], remote inpatient orders (regardless of status) and remote clinic medications are NOT included in this list. The patient and provider must always discuss medications the patient is taking, regardless of where the medication was dispensed or obtained. -- OUTPT ALLOPURINOL 100MG TAB (Status = Active) TAKE ONE TABLET BY MOUTH ONCE DAILY FOR GOUT Rx# [id number] Last Released: 12/09/23 Qty/Days Supply: Rx Expiration Date: 05/22/24 Refills Remainin OUTPT ATORVASTATIN CALCIUM 10MG TAB (Status = Discontinued) TAKE ONE TABLET BY MOUTH AT BEDTIME FOR HIGH CHOLESTEROL Rx# [id number] Last Released: 10/14/23 Qty/Days Supply: Rx Expiration Date: 04/08/24 Refills Remainin Indication: FOR HIGH CHOLESTEROL OUTPT ATORVASTATIN CALCIUM 10MG TAB (Status = Active/Suspended) TAKE ONE TABLET BY MOUTH AT BEDTIME FOR HIGH CHOLESTEROL Rx# [id number] Last Released: Qt/ Supply: Rx Expiration Date: 11/03/24 Refills Remainin Indication: FOR HIGH CHOLESTEROL OUTPT DILTIAZEM (EQV-CARDIZEM) 120MG 24HR CAP (Status = Discontinued) TAKE ONE CAPSULE BY MOUTH ONCE DAILY FOR HIGH BLOOD PRESSURE Rx# [id number] Last Released: 11/03/23 Qty/Days Supply: Rx Expiration Date: 04/08/24 Refills Remainin Indication: FOR HIGH BLOOD PRESSURE OUTPT DILTIAZEM (EQV-CARDIZEM) 120MG 24HR CAP (Status = Active/Suspended) TAKE ONE CAPSULE BY MOUTH ONCE DAILY FOR HIGH BLOOD PRESSURE Rx# [id number] Last Released: Qt Supply: Rx Expiration Date: 11/03/24 Refills Remainin Indication: FOR HIGH BLOOD PRESSURE Non-VA FISH OIL 500MG DHA/EPA CAP,ORAL TAKE BY MOUTH DAILY OUTPT LEVOTHYROXINE NA (SYNTHROID) 125MCG TAB (Status = Active/Suspended) TAKE ONE TABLET BY MOUTH EVERY MORNING 30 MINUTES BEFORE BREAKFAST FOR THYROID TAKE ON AN EMPTY STOMACH WITH A FULL GLASS OF WATER Rx# [id number] Last Released: 10/17/23 Qty/Days Supply: Rx Expiration Date: 10/16/24 Refills Remainin Indication: FOR THYROID OUTPT LEVOTHYROXINE NA (SYNTHROID) 137MCG TAB (Status = Discontinued) TAKE ONE TABLET BY MOUTH EVERY MORNING 30 MINUTES BEFORE BREAKFAST FOR THYROID TAKE ON AN EMPTY STOMACH WITH A FULL GLASS OF WATER Rx# [id number] Last Released: 08/21/23 Qty/Days Supply: 60/60 Rx Expiration Date: 08/21/24 Refills Remainin Indication: FOR THYROID OUTPT METOPROLOL SUCCINATE 50MG SA TAB (Status = Discontinued) TAKE ONE TABLET BY MOUTH ONCE DAILY FOR BLOOD PRESSURE/HEART Rx# [id number] Last Released: 09/23/23 Qty/Days Supply: Rx Expiration Date: 04/08/24 Refills Remainin Indication: ATRIAL FIBRILLATION OUTPT METOPROLOL SUCCINATE 50MG SA TAB (Status = Active) TAKE ONE TABLET BY MOUTH ONCE DAILY FOR BLOOD PRESSURE/HEART Rx# [id number] Last Released: 12/03/23 Qty/Days Supply: Rx Expiration Date: 11/03/24 Refills Remainin Indication: ATRIAL FIBRILLATION Non-VA MULTIVITAMIN/MINERALS CAP/TAB TAKE ONE TABLET BY MOUTH EVERY DAY for the eyes Non-VA NIACIN TAB TAKE BY MOUTH OUTPT POTASSIUM CITRATE 10MEQ SA TAB (Status = Discontinued) TAKE TWO TABLETS BY MOUTH TWICE DAILY Rx# [id number] Last Released: 09/26/23 Qty/Days Supply: Rx Expiration Date: 10/23/23 Refills Remainin Indication: KIDNEY STONES OUTPT POTASSIUM CITRATE 10MEQ SA TAB (Status = Active) TAKE TWO TABLETS BY MOUTH TWICE DAILY Rx# [id number] Last Released: 11/28/23 Qty/Days Supply: Rx Expiration Date: 11/28/24 Refills Remainin Indication: KIDNEY STONES OUTPT RIVAROXABAN 20MG TAB (Status = Discontinued) TAKE ONE TABLET BY MOUTH ONCE DAILY TO PREVENT BLOOD CLOTS WITH FOOD Rx# [id number] Last Released: 07/09/23 Qty/Days Supply: Rx Expiration Date: 01/11/24 Refills Remainin Indication: TO PREVENT BLOOD CLOTS OUTPT RIVAROXABAN 20MG TAB (Status = Active) TAKE ONE TABLET BY MOUTH ONCE DAILY TO PREVENT BLOOD CLOTS (TAKE WITH FOOD) Rx# [id number] Last Released: 11/04/23 Qty/Days Supply: Rx Expiration Date: 11/03/24 Refills Remainin Indication: TO PREVENT BLOOD CLOTS -- SUPPLIES -- /yunior/ VESTA BLISS MD PRIMARY CARE PHYSICIAN Signed: 12/22/2023 11:10 VESTA BLISS [facility]
--- OUTSIDE RECORDS SUMMARY | 2024-06-29 18:52 | XMS_ITS | Encounter Summary ---
Author Name [facility] [place] [facility] [place] Address [address] [place] [address] Care Team Providers Care Packing Clerk Name Role Phone ABDIRAHMAN LAKE Primary Care [...] BASIC FAMIL Y Jun 24, 2009 112 [id number] [phone] ABHILASH GARAY PATIENT ANTHEM BCBS [place] FEP PREFERRED PROVIDER ORGANIZAT ION (PPO) FEP BASIC FAM Jun 24, 2009 112 [id number] [phone] ABHILASH GARAY PATIENT ANTHEM BCBS [place] FEP PREFERRED PROVIDER ORGANIZAT ION (PPO) FEP BASIC FAM Jun 24, 2009 112 [id number] [phone] ABHILASH GARAY PATIENT AN[place] PREFERRED PROVIDER ORGANIZAT ION (PPO) FEP BASIC FAM Jun 24, 2009 112 [id number] [phone] ABHILASH GARAY PATIENT [place] F[place] PREFERRED PROVIDER ORGANIZAT ION (PPO) FEP BASIC FAM Jun 24, 2009 112 [id number] [phone] RUBI GARAYNETH PATIENT BCBS [place] FEP PREFERRED PROVIDER ORGANIZAT ION (PPO) BASIC FAMIL Y Jun 24, 2009 112 [id number] [phone] RUBI GARAYNETH PATIENT [place] PREFERRED PROVIDER ORGANIZAT ION (PPO) BASIC FAMIL Y Jun 24, 2009 112 [id number] [phone] RUBI GARAYNETH PATIENT [place] FEP PREFERRED PROVIDER ORGANIZAT ION (PPO) BASIC FAMIL Y Jun 24, 2009 112 [id number] [phone] RUBI GARAYNETH PATIENT [place] FEP DENTAL DENTAL INSURANCE BASIC Jul 12, 2009 DENTAL [id number] DEJAHDANIKARUBI ACEVESNETH PATIENT [place] F[place] PREFERRED PROVIDER ORGANIZAT ION (PPO) BASIC FAMIL Y Jun 24, 2009 112 [id number] [phone] ABHILASH GARAY PATIENT [place] FEP ([id number]) PRESCRIPT ION FEPRX Jun 24, 2009 [id number] [phone] ABHILASH GARAY PATIENT [place] FEP BCBS PRESCRIPT ION CAREM ARK FEPRX PLAN Nov 21, 2021 [id number] ABHILASH GARAY PATIENT [place] FEPRX PLAN PRESCRIPT ION CAREM ARK FEPRX Nov 21, 2021 [id number] [phone] ABHILASH GARAY PATIENT [place]-F EP BCBS PRESCRIPT ION FEP CAREM ARK Nov 21, 2021 [id number] ABHILASH GARAY PATIENT [place]-F EP BCBS PRESCRIPT ION FEP Jun 23, 2010 [id number] RUBI GARAYNETH PATIENT MEDICARE ([facility]) MEDICARE () PART A Feb 22, 2020 PART A [id number] ABHILASH GARAY PATIENT MEDICARE (WNR) MEDICARE (M) PART A Feb 22, 2020 PART A [id number] ABHILASH GARAY PATIENT MEDICARE (WNR) MEDICARE (M) PART A Feb 22, 2020 PART A [id number] [phone] ABHILASH GARAY PATIENT MEDICARE (WNR) MEDICARE (M) PART A Feb 22, 2020 PART A [id number] [phone] ABHILASH GARAY PATIENT MEDICARE (WNR) MEDICARE (M) PART A Feb 22, 2020 PART A [id number] [phone] ABHILASH GARAY PATIENT Selected Encounter This section includes the information on record at [place] for the Encounter. Date/Time Encounter Type Encounter Description Reason Pro vider Source Dec 29, 2023 02:05 PM Outpatient Encounter ADMIN PAT ACTIVTIES (MASNONCT) IHE Encounter Template Text not used by [place] Plan of Treatment: Future Appointments (+ 6 months) and Future Tests (+/- 45 days) The Plan of Treatment section includes future care activities for the [facility] [place] [facility] This section includes future appointments and future orders which are active, pending or scheduled. Future Appointments This section includes appointments that were scheduled to occur 6 months from the date of the Encounter, up to a maximum of 20 appointments. The data comes from all [place] treatment facilities. Appointment Date/Time Appointment Type Appointme nt Facility Name Dec 31, 2023 08:15 PM AMBULATORY - MEDICINE [facility] [place] [facility] Jan 01, 2024 01:00 PM AMBULATORY - MEDICINE [facility] [place] [facility] Jan 02, 2024 09:30 AM AMBULATORY - REHAB [facility]IN [facility] Jan 07, 2024 03:00 PM AMBULATORY - [facility]HAB [facility]ICIN [facility] Jan 08, 2024 01:00 PM AMBULATORY - MEDICINE [facility] [place] [place] [facility] Jan 09, 2024 11:00 AM AMBULATORY - MEDICINE [facility] [place] [facility] Jan 13, 2024 11:00 AM AMBULATORY - MEDICINE [facility] [place] [facility] Jan 14, 2024 03:00 PM AMBULATORY - [facility]AB [facility]ICIN [facility] Jan 21, 2024 03:00 PM AMBULATORY - [place] Jan 28, 2024 11:00 AM [facility] [place] [place] [facility] Jan 30, 2024 08:00 [facility] Feb 02, 2024 02:00 PM [facility] [place] [facility] Feb 04, 2024 11:00 AM [facility]INE [facility] [place] [facility] Feb 09, 2024 11:30 AM [facility] [place] [facility] Feb 09, 2024 02:00 PM AM[facility]AT[facility]INE [facility] [place] [facility] Feb 19, 2024 01:00 PM [facility] [place] [facility] Feb 25, 2024 11:00 AM AMBULATORY - NONE [facility] [place] [facility] Mar 04, 2024 01:00 PM AM[facility]ULATORY [facility]INE [facility] [place] [facility] Mar 09, 2024 01:00 PM AM[facility]ULATORY [facility]INE [facility] [place] [facility] Mar 11, 2024 11:00 AM AM[facility]ULATORY [facility] MEDICINE [facility] [place] [facility] Social History: Smoking Status (Most current) and Tobacco Use (All prior to encounter date) This section includes the most current, and the historical, smoking and tobacco- related health factors from the [place] facility where the Encounter took place. Current Smoking Status This section includes the most current smoking, or tobacco-related health factor, from the [place] facility where the Encounter took place. Date/Time Current Smoking Status Comment Odalis casey Apr 08, 2023 09:12 AM [facility] Tobacco Use History This section includes a history of the smoking, or tobacco-related health factors, that were collected on or before the date of the Encounter. The data comes from the [place] facility where the Encounter took place. Date/Time Smoking Status/Tobacco Use Comment F darvin Aug 09, 2021 09:20 AM VA-TOBACCO NEVER USED [place] [facility] Encounter Notes: All associated encounter notes This section contains the clinical notes associated to the Encounter. Date/Time Encounter Note(s) Provider Source Dec 29, 2023 02:05 PM ADMINISTRATIVE NOT E: LOCAL TITLE: CCC: SCHEDULING ADMINISTRATION STANDARD TITLE: ADMINISTRATIVE NOTE DATE OF NOTE: DEC 29, 2023@14:05 ENTRY DATE: DEC 29, 2023@14:05:10 AUTHOR: CHEYENNE JENNINGS COSIGNER: URGENCY: STATUS: COMPLETED CCC: SCHEDULING ADMINISTRATION Has ADDENDA Type of call: Administrative and Scheduling Demographics have been verified Caller is: Nutley Call back number is: Reason for call: Nutley looking for status update on water aerobics referral, states he had spoking to PCP on 12/22/23 regarding request. 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 Please call back at /yunior/ CHEYENNE JENNINGS [facility] AMS[facility] Signed: 12/29/2023 14:06 Receipt Acknowledged By: 12/30/2023 23:32 /yunior/ BREANNA BAKER RN-BC REGISTERED NURSE 12/30/2023 11:37 /yunior/ EUGENIE SALVADOR LPN Licensed Practical Nurse 12/30/2023 ADDENDUM STATUS: COMPLETED sent email to [facility] choice coordination group requesting advice on Nutley's request for aquatic therapy consult from PAO /yunior/ BREANNA BAKER RN-BC REGISTERED NURSE Signed: 12/30/2023 23:33 CHEYENNE JENNINGS [facility]
--- OUTSIDE RECORDS SUMMARY | 2024-06-29 18:52 | XMS_ITS | Encounter Summary ---
Author Name [facility] [place] [facility] [place] Address [address] [place] [address] Care Team Providers Care Associate Financial Planner Name Role Phone ABDIRAHMAN LAKE Primary Care [...] BASIC FAMIL Y Jun 24, 2009 112 [id number] [phone] ABHILASH GARAY PATIENT ANTHEM BCBS [place] F[place] PREFERRED PROVIDER ORGANIZAT ION (PPO) FEP BASIC FAM Jun 24, 2009 112 [id number] [phone] ABHILASH GARAY PATIENT ANTHEM BCBS [place] FEP PREFERRED PROVIDER ORGANIZAT ION (PPO) FEP BASIC FAM Jun 24, 2009 112 [id number] [phone] ABHILASH GARAY PATIENT [place] PREFERRED PROVIDER ORGANIZAT ION (PPO) FEP BASIC FAM Jun 24, 2009 112 [id number] [phone] ABHILASH GARAY PATIENT [place] PREFERRED PROVIDER ORGANIZAT ION (PPO) FEP BASIC FAM Jun 24, 2009 112 [id number] [phone] RUBI GARAYNETH PATIENT [place]BS [place] F[place] PREFERRED PROVIDER ORGANIZAT ION (PPO) BASIC FAMIL Y Jun 24, 2009 [id number] RUBI GARAYNETH PATIENT [place] F[place] PREFERRED PROVIDER ORGANIZAT ION (PPO) BASIC FAMIL Y Jun 24, 2009 [id number] RUBI GARAYNETH PATIENT [place] F[place] PREFERRED PROVIDER ORGANIZAT ION (PPO) BASIC FAMIL Y Jun 24, 2009 [id number] RUBI GARAYNETH PATIENT [place] DENTAL DENTAL INSURANCE BASIC Jul 12, 2009 DENTAL [id number] DEJAHDANIKARUBI ACEVESNETH PATIENT [place] F[place] PREFERRED PROVIDER ORGANIZAT ION (PPO) BASIC FAMIL Y Jun 24, 2009 [id number] ABHILASH GARAY PATIENT [employer] FEP ([id number]) PRESCRIPT ION FEPRX Jun 24, 2009 [id number] [phone] ABHILASH GARAY PATIENT [place] FEP BCBS PRESCRIPT ION CAREM ARK FEPRX PLAN Nov 21, 2021 [id number] ABHILASH GARAY PATIENT [place] FEPRX PLAN PRESCRIPT ION CAREM ARK FEPRX Nov 21, 2021 [id number] ABHILASH GARAY PATIENT [place]-F EP BCBS PRESCRIPT ION FEP CAREM ARK Nov 21, 2021 [id number] ABHILASH GARAY PATIENT [place]-F EP BCBS PRESCRIPT ION FEP Jun 23, 2010 [id number] RUBI GARAYNETH PATIENT MEDICARE ([facility]) MEDICARE () PART A Feb 22, 2020 PART A [id number] [phone] ABHILASH GARAY PATIENT MEDICARE (WNR) MEDICARE (M) PART A Feb 22, 2020 PART A [id number] [id number] [phone] ABHILASH GARAY PATIENT MEDICARE (WNR) MEDICARE (M) PART A Feb 22, 2020 PART A [id number] ABHILASH GARAY PATIENT MEDICARE (WNR) MEDICARE (M) PART A Feb 22, 2020 PART A [id number] ABHILASH GARAY PATIENT MEDICARE (WNR) MEDICARE (M) PART A Feb 22, 2020 PART A [id number] ABHILASH GARAY PATIENT Selected Encounter This section includes the information on record at [place] for the Encounter. Date/Time Encounter Type Encounter Description Reason Pro vider Source Dec 22, 2023 12:38 PM Outpatient Encounter ADMIN PAT ACTIVTIES (MASNONCT) IHE Encounter Template Text not used by [place] Plan of Treatment: Future Appointments (+ 6 months) and Future Tests (+/- 45 days) The Plan of Treatment section includes future care activities for the [facility] [place] [facility] This section includes future appointments and [...] 31, 2023 08:15 PM AMBULATORY - MEDICINE [facility] [place] [facility] Jan 01, 2024 01:00 PM AMBULATORY - MEDICINE [facility] [place] [facility] Jan 02, 2024 09:30 AM AMBULATORY - REHAB MEDICIN [facility] Jan 07, 2024 03:00 PM AMBULATORY - REHAB MEDICIN [facility] Jan 08, 2024 01:00 PM AMBULATORY - MEDICINE [facility] [place] [facility] Jan 09, 2024 11:00 AM AMBULATORY - MEDICINE [facility] [place] [facility] Jan 13, 2024 11:00 AM AMBULATORY - MEDICINE [facility] [place] [facility] Jan 14, 2024 03:00 PM AMBULATORY - REHAB MEDICIN [facility] Jan 21, 2024 03:00 PM AMBULATORY - RE[facility]AB MEDICIN [facility] [place] Jan 28, 2024 11:00 AM AM[facility]ULAT[facility]INE [facility] [place] [facility] Jan 30, 2024 08:00 AM [facility] Feb 02, 2024 02:00 PM AMBULATORY - MEDICINE [facility] [place] [facility] Feb 04, 2024 11:00 AM AMBULATORY - MEDICINE [facility] [place] [facility] Feb 09, 2024 11:30 AM AMBULATORY - MEDICINE [facility] [place] [facility] Feb 09, 2024 02:00 PM AMBULATORY - MEDICINE [facility] [place] [facility] Feb 19, 2024 01:00 PM AMBULATORY - MEDICINE [facility] [place] [facility] Feb 25, 2024 11:00 AM AMBULATORY - NONE [facility] [place] [facility] Mar 04, 2024 01:00 PM AMBULATORY - MEDICINE [facility] [place] [facility] Mar 09, 2024 01:00 PM AMBULATORY - MEDICINE [facility] [place] [facility] Mar 11, 2024 11:00 AM AMBULATORY - MEDICINE [facility] [place] [place] [facility] Social History: Smoking Status (Most [...] 08, 2023 09:12 AM VA-TOBACCO NEVER USED [facility] WSN [facility] Tobacco Use History This section includes a history of the smoking, or tobacco-related health factors, that were collected on or before the date of the Encounter. The data comes from the [place] facility where the Encounter took place. Date/Time Smoking Status/Tobacco Use Comment Gilberto boston Aug 09, 2021 09:20 AM [facility] Encounter Notes: All associated encounter notes This section contains the clinical notes associated to the Encounter. Date/Time Encounter Note(s) Provider Source Dec 23, 2023 09:37 AM ADDENDUM: LOCAL TITLE: Addendum STANDARD TITLE: ADDENDUM DATE OF NOTE: DEC 23, 2023@09:37:43 ENTRY DATE: DEC 23, 2023@09:37:44 AUTHOR: RADHIKA GOMZEIGNER: URGENCY: STATUS: COMPLETED Author reviewed previous and current potassium citrate prescriptions with [place] and verified that he has been prescribed 2 tablets taken two times a day since 05/2022. Author advised [place] that will call [facility] and request clarification on recommended dosing and will contact [place] if any discrepancies are found. Author called [facility] and left voicemail requesting faxed copy of last office visit note [facility] [place] [facility] [place] at [phone] and provided author's direct call back number for any further questions or info needed. is also inquiring into aquatic therapy for his chronic back pain. would like to be referred for this therapy and would like the [place] to assist with reimbursement or provide transportation for [place] for these appointments. Author advised will forward request for aquatic therapy for chronic back pain to pcp for review and that he needs to contact [place] travel reimbursement dept to determine eligibility for travel reimbursement if [place] is referred for those services. /yunior/ BREANNA BAKER RN-BC REGISTERED NURSE Signed: 12/23/2023 09:42 Receipt Acknowledged By: 12/24/2023 08:04 /yunior/ VESTA BLISS MD PRIMARY CARE PHYSICIAN --- Original Document --- 12/22/23 CCC: SCHEDULING ADMINISTRATION: Patient Demographics Patient Name: ABHILASH GARAY Patient Primary Phone: [phone] Patient Primary Address: [address] [place] [id number] Patient : 1955 Patient Age: 68 Current Location: HOME Call Back Number: [phone] ALL DAY Caller/Recipient Relation to Patient: Self Scheduling Patient Expects Callback: No Administrative Administrative Note Reason: Returned Call [facility] Refill/Renewal Request: PLEASE RETURN CALL TO QUESTION ON DOSAGE- WAS TAKING 2 AND NOW LABEL STATES 4 PER DAY /es/ BRANDEN COUTU BRANDEN COUTU CDA/AMSA Signed: 12/22/2023 12:38 Receipt Acknowledged By: 12/23/2023 09:18 /yunior/ BREANNA BAKER RN-BC REGISTERED NURSE * AWAITING SIGNATURE * EUGENIE SALVADOR 12/24/2023 ADDENDUM STATUS: UNSIGNED You may not VIEW this UNSIGNED Addendum. RADHIKA GOMEZ [place] [facility] Dec 22, 2023 12:38 PM ADMINISTRATIVE NOT E: LOCAL TITLE: CCC: SCHEDULING ADMINISTRATION STANDARD TITLE: ADMINISTRATIVE NOTE DATE OF NOTE: DEC 22, 2023@12:38:41 ENTRY DATE: DEC 22, 2023@12:38:41 AUTHOR: BRANDEN VEGA COSIGNER: URGENCY: STATUS: COMPLETED CCC: SCHEDULING ADMINISTRATION Has ADDENDA Patient Demographics Patient Name: ABHILASH GARAY Patient Primary Phone: [phone] Patient Primary [address]: [address] [place] [address] Patient : 1955 Patient Age: 68 Current Location: HOME Call Back Number: [phone] ALL DAY Caller/Recipient Relation to Patient: Self Scheduling Patient Expects Callback: No Administrative Administrative Note Reason: Returned Call [facility] Refill/Renewal Request: PLEASE RETURN CALL TO QUESTION ON DOSAGE- WAS TAKING 2 AND NOW LABEL STATES 4 PER DAY /es/ BRANDEN COUTU BRANDEN COUTU CDA/AMSA Signed: 12/22/2023 12:38 Receipt Acknowledged By: 12/23/2023 09:18 /yunior/ BREANNA BAKER RN-BC REGISTERED NURSE 12/30/2023 11:45 /es/ EUGENIE SALVADOR LPN Licensed Practical Nurse 12/23/2023 ADDENDUM STATUS: COMPLETED Author reviewed previous and current potassium citrate prescriptions with and verified that he has been prescribed 2 tablets taken two times a day since 05/2022. Author advised [place] that will call [facility] and request clarification on recommended dosing and will contact if any discrepancies are found. Author called [facility] and left voicemail requesting faxed copy of last office visit note be sent to [facility] for review at [phone] and provided author's direct call back number for any further questions or info needed. is also inquiring into aquatic therapy for his chronic back pain. [place] would like to be referred for this therapy and would like the [place] to assist with reimbursement or provide transportation for [place] for these appointments. Author advised will forward request for aquatic therapy for chronic back pain to pcp for review and that he needs to contact [place] travel [place] de[place] to determine eligibility for travel reimbursement if [place] is referred for those services. /yunior/ BREANNA BAKER RN-BC REGISTERED NURSE Signed: 12/23/2023 09:42 Receipt Acknowledged By: 12/24/2023 08:04 /yunior/ VESTA BLISS MD PRIMARY CARE PHYSICIAN 12/24/2023 ADDENDUM STATUS: COMPLETED Physical therapyaquatic therapy consultation placed during December 21 office visit. We discussed about potassium citrate and need for the last note from urologist and a prescription The patient is in agreement with above plan /yunior/ VESTA BLISS MD PRIMARY CARE PHYSICIAN Signed: 12/24/2023 08:05 [facility] VEGA [place] [facility]
--- OUTSIDE RECORDS SUMMARY | 2024-06-29 18:52 | XMS_ITS | Encounter Summary ---
Author Name [facility] [place] [facility] [place] Address [address] [place] [address] Care Team Providers Care Claim Processing Specialist Name Role Phone ABDIRAHMAN LAKE Primary [...] BASIC FAMIL Y Jun 24, 2009 [id number] [phone] ABHILASH GARAY PATIENT ANTHEM [place]BS [place] F[place] PREFERRED PROVIDER ORGANIZAT ION (PPO) FEP BASIC FAM Jun 24, 2009 112 [id number] [phone] ABHILASH GARAY PATIENT ANTHEM BCBS [place] F[place] PREFERRED PROVIDER ORGANIZAT ION (PPO) FEP BASIC FAM Jun 24, 2009 112 [id number] [phone] ABHILASH GARAY PATIENT ANTHEM [place] PREFERRED PROVIDER ORGANIZAT ION (PPO) FEP BASIC FAM Jun 24, 2009 112 [id number] [phone] ABHILASH GARAY PATIENT [place] PREFERRED PROVIDER ORGANIZAT ION (PPO) FEP BASIC FAM Jun 24, 2009 112 [id number] [phone] RUBI GARAYNETH PATIENT BCBS [place] F[place] PREFERRED PROVIDER ORGANIZAT ION (PPO) BASIC FAMIL Y Jun 24, 2009 112 [id number] [phone] RUBI GARAYNETH PATIENT [place] PREFERRED PROVIDER ORGANIZAT ION (PPO) BASIC FAMIL Y Jun 24, 2009 112 [id number] RUBI GARAYNETH PATIENT [place] F[place] PREFERRED PROVIDER ORGANIZAT ION (PPO) BASIC FAMIL Y Jun 24, 2009 112 [id number] RUBI GARAYNETH PATIENT [place] F[place] DENTAL DENTAL INSURANCE BASIC Jul 12, 2009 DENTAL [id number] DEJAHDANIKARUBI ACEVESNETH PATIENT [place] FEP PREFERRED PROVIDER ORGANIZAT ION (PPO) BASIC FAMIL Y Jun 24, 2009 [id number] [phone] ABHILASH GARAY PATIENT [place] FEP ([id number]) PRESCRIPT ION FEPRX Jun 24, 2009 [id number] [phone] ABHILASH GARAY PATIENT [place] FEP BCBS PRESCRIPT ION CAREM ARK FEPRX PLAN Nov 21, 2021 [id number] ABHILASH GARAY PATIENT [place] FEPRX PLAN PRESCRIPT ION CAREM ARK FEPRX Nov 21, 2021 [id number] ABHILASH GARAY PATIENT [place]-F EP BCBS PRESCRIPT ION FEP CAREM ARK Nov 21, 2021 [id number] ABHILASH GARAY PATIENT [place]-F EP BCBS PRESCRIPT ION FEP Jun 23, 2010 [id number] RUBI GARAYNETH PATIENT MEDICARE ([facility]) MEDICARE () PART A Feb 22, 2020 PART A [id number] [phone] ABHILASH GARAY PATIENT MEDICARE (WNR) MEDICARE (M) PART A Feb 22, 2020 PART A [id number] [phone] ABHILASH GARAY PATIENT MEDICARE (WNR) MEDICARE (M) PART A Feb 22, 2020 PART A [id number] ABHILASH GARAY PATIENT MEDICARE (WNR) MEDICARE (M) PART A Feb 22, 2020 PART A [id number] ABHILASH GARAY PATIENT MEDICARE (WNR) MEDICARE (M) PART A Feb 22, 2020 PART A [id number] ABHILASH GARAY PATIENT Selected Encounter This section includes the information on record at [place] for the Encounter. Date/Time Encounter Type Encounter Description Reason Pro vider Source Dec 22, 2023 05:12 PM Outpatient Encounter ADMIN PAT ACTIVTIES (MASNONCT) IHE Encounter Template Text not used by [place] Plan of Treatment: Future Appointments (+ 6 months) and Future Tests (+/- 45 days) The Plan of Treatment section includes future care activities for the patient from [facility] [place] [facility] This section includes future appointments and future orders which are active, pending or scheduled. Future Appointments This section includes appointments that were scheduled to occur 6 months from the date of the Encounter, up to a maximum of 20 appointments. The data comes from all [place] treatment facilities. Appointment Date/Time Appointment Type Appointme nt Facility Name Dec 31, 2023 08:15 PM AMBULATORY - MEDICINE [facility] [place] [facility] Jan 01, 2024 01:00 PM AMBULATORY - MEDICINE [facility] [place] [facility] Jan 02, 2024 09:30 AM AMBULATORY - REHAB [facility]IN [facility] Jan 07, 2024 03:00 PM AMBULATORY - REHAB MEDICIN [facility] Jan 08, 2024 01:00 PM AMBULATORY - MEDICINE [facility] [place] [facility] Jan 09, 2024 11:00 AM AMBULATORY - MEDICINE [facility] [place] [facility] Jan 13, 2024 11:00 AM AMBULATORY - MEDICINE [facility] [place] [facility] Jan 14, 2024 03:00 PM AMBULATORY - RE[facility]AB MEDICIN [facility] Jan 21, 2024 03:00 PM AMBULATORY - [facility] [facility]IC[facility] [place] Jan 28, 2024 11:00 AM [facility] [place] [facility] Jan 30, 2024 08:00 AM [facility] Feb 02, 2024 02:00 PM [facility] [place] [facility] Feb 04, 2024 11:00 AM [facility] [place] [facility] Feb 09, 2024 11:30 AM [facility] [place] [facility] Feb 09, 2024 02:00 PM [facility] [place] [facility] Feb 19, 2024 01:00 PM [facility] [place] [facility] Feb 25, 2024 11:00 AM [facility] NONE [facility] [place] [facility] Mar 04, 2024 01:00 PM AM[facility] [place] [facility] Mar 09, 2024 01:00 PM [facility]INE [facility] [place] [facility] Mar 11, 2024 11:00 AM AM[facility]ULAT[facility]INE [facility] [place] [facility] Social History: Smoking Status (Most current) and Tobacco Use (All prior to encounter date) This section includes the most current, and the historical, smoking and tobacco- related health factors from the [place] facility where the Encounter took place. Current Smoking Status This section includes the most current smoking, or tobacco-related health factor, from the [place] facility where the Encounter took place. Date/Time Current Smoking Status Comment Odalis casey Apr 08, 2023 09:12 AM [facility] Tobacco Use History This section includes a history of the smoking, or tobacco-related health factors, that were collected on or before the date of the Encounter. The data comes from the [place] facility where the Encounter took place. Date/Time Smoking Status/Tobacco Use Comment F darvin Aug 09, 2021 09:20 AM VA-TOBACCO NEVER USED [place] [facility] [place] [facility] Encounter Notes: All associated encounter notes This section contains the clinical notes associated to the Encounter. Date/Time Encounter Note(s) Provider Source Dec 22, 2023 05:12 PM ADMINISTRATIVE NOT E: LOCAL TITLE: CCC: SCHEDULING ADMINISTRATION STANDARD TITLE: ADMINISTRATIVE NOTE DATE OF NOTE: DEC 22, 2023@17:12 ENTRY DATE: DEC 22, 2023@17:12:29 AUTHOR: GABRIELA RODRIGUEZ EXP COSIGNER: URGENCY: STATUS: COMPLETED CALLED TO REFILL POTASSIUM CITRATE. TRANSFERRED TO PHARMACY CUSTOMER CARE // GABRIELA RODRIGUEZ Signed: 12/22/2023 17:12 GABRIELA RODRIGUEZ [place] CNT [facility]
--- OUTSIDE RECORDS SUMMARY | 2024-06-29 18:52 | XMS_ITS | Encounter Summary ---
Author Name [facility] [place] [facility] [place] Address [address] [place] [address] Care Team Providers Care Duty Engineer Name Role Phone ABDIRAHMAN LAKE Primary [...] BASIC FAMIL Y Jun 24, 2009 112 [id number] [phone] ABHILASH GARAY PATIENT ANTHEM BCBS [place] FEP PREFERRED PROVIDER ORGANIZAT ION (PPO) FEP BASIC FAM Jun 24, 2009 112 [id number] [phone] ABHILASH GARAY PATIENT ANTHEM [place] F[place] PREFERRED PROVIDER ORGANIZAT ION (PPO) FEP BASIC FAM Jun 24, 2009 112 [id number] [phone] ABHILASH GARAY PATIENT [place]M [place] F[place] PREFERRED PROVIDER ORGANIZAT ION (PPO) FEP BASIC FAM Jun 24, 2009 112 [id number] [phone] ABHILASH GARAY PATIENT [place] PREFERRED PROVIDER ORGANIZAT ION (PPO) FEP BASIC FAM Jun 24, 2009 112 [id number] [phone] ABHILASH GARAY PATIENT [place] F[place] PREFERRED PROVIDER ORGANIZAT ION (PPO) BASIC FAMIL Y Jun 24, 2009 [id number] ABHILASH GARAY PATIENT [place] PREFERRED PROVIDER ORGANIZAT ION (PPO) BASIC FAMIL Y Jun 24, 2009 112 [id number] [phone] ABHILASH GARAY PATIENT [place] FEP PREFERRED PROVIDER ORGANIZAT ION (PPO) BASIC FAMIL Y Jun 24, 2009 112 [id number] ABHILASH GARAY PATIENT [place] DENTAL DENTAL INSURANCE BASIC Jul 12, 2009 DENTAL [id number] [phone] ABHILASH GARAY PATIENT [place] F[place] PREFERRED PROVIDER ORGANIZAT ION (PPO) BASIC FAMIL Y Jun 24, 2009 112 [id number] ABHILASH GARAY PATIENT [employer] FEP ([id number]) PRESCRIPT ION FEPRX Jun 24, 2009 [id number] [phone] ABHILASH GARAY PATIENT [place] FEP BCBS PRESCRIPT ION CAREM ARK FEPRX PLAN Nov 21, 2021 [id number] ABHILASH GARAY PATIENT [employer] FEPRX PLAN PRESCRIPT ION CAREM ARK FEPRX Nov 21, 2021 [id number] ABHILASH GARAY PATIENT [place]-F EP BCBS PRESCRIPT ION FEP CAREM ARK Nov 21, 2021 [id number] ABHILASH GARAY PATIENT [place]-F EP BCBS PRESCRIPT ION FEP Jun 23, 2010 [id number] ABHILASH GARAY PATIENT MEDICARE (WN) MEDICARE () PART A Feb 22, 2020 PART A [id number] [phone] ABHILASH GARAY PATIENT MEDICARE ([facility] MEDICARE () PART A Feb 22, 2020 PART A [id number] ABHILASH GARAY PATIENT MEDICARE (WNR) MEDICARE (M) PART A Feb 22, 2020 PART A [id number] ABHILASH GARAY PATIENT MEDICARE (WNR) MEDICARE (M) PART A Feb 22, 2020 PART A [id number] ABHILASH GARAY PATIENT MEDICARE (WNR) MEDICARE (M) PART A Feb 22, 2020 PART A [id number] [id number] [phone] ABHILASH GARAY PATIENT Selected Encounter This section includes the information on record at [place] for the Encounter. Date/Time Encounter Type Encounter Description Reason Pro vider Source Dec 22, 2023 10:30 AM Outpatient Encounter PRIMARY CARE/MEDICINE IHE Encounter Template Text not used by [place] Plan of Treatment: Future Appointments (+ 6 months) and Future Tests (+/- 45 days) The Plan of Treatment section includes future care activities for the patient [facility] [place] [facility] This section includes future appointments and [...] 31, 2023 08:15 PM AMBULATORY - MEDICINE [facility] [place] [facility] Jan 01, 2024 01:00 PM AMBULATORY - MEDICINE [facility] [place] [facility] Jan 02, 2024 09:30 AM AMBULATORY - REHAB [facility]ICIN [facility] Jan 07, 2024 03:00 PM AMBULATORY - REHAB [facility] Jan 08, 2024 01:00 PM AMBULATORY - MEDICINE [facility] [place] [facility] Jan 09, 2024 11:00 AM AMBULATORY - MEDICINE [facility] [place] [facility] Jan 13, 2024 11:00 AM AMBULATORY - MEDICINE [facility] [place] [facility] Jan 14, 2024 03:00 PM AMBULATORY - REHAB [facility]IN [facility] Jan 21, 2024 03:00 PM AMBULATORY - [facility]AB [facility] Jan 28, 2024 11:00 AM [facility]INE [facility] [place] [facility] Jan 30, 2024 08:00 AM [facility] Feb 02, 2024 02:00 PM AM[facility]ULAT[facility]ICINE [facility] [place] [facility] Feb 04, 2024 11:00 AM AM[facility]ULATORY [facility] MEDICINE [facility] [place] [facility] Feb 09, 2024 11:30 AM AMBULATORY [facility] MEDICINE [facility] [place] [facility] Feb 09, 2024 02:00 PM AMBULATORY [facility] MEDICINE [facility] [place] [facility] Feb 19, 2024 01:00 PM AMBULATORY - MEDICINE [facility] [place] [facility] Feb 25, 2024 11:00 AM AMBULATORY - NONE [facility] [place] [facility] Mar 04, 2024 01:00 PM AMBULATORY - MEDICINE [facility] [place] [facility] Mar 09, 2024 01:00 PM AMBULATORY - MEDICINE [facility] [place] [facility] Mar 11, 2024 11:00 AM AMBULATORY - MEDICINE [facility] [place] [facility] Social History: Smoking Status (Most [...] 08, 2023 09:12 AM [facility] Tobacco Use History This section includes a history of the smoking, or tobacco-related health factors, that were collected on or before the date of the Encounter. The data comes from the [place] facility where the Encounter took place. Date/Time Smoking Status/Tobacco Use Comment F darvin Aug 09, 2021 09:20 AM VA-TOBACCO NEVER USED [place] [facility] [place] [facility] Encounter Notes: All associated encounter notes This section contains the clinical notes associated to the Encounter. Date/Time Encounter Note(s) Provider Source Dec 22, 2023 10:30 AM PREVENTIVE MEDICIN E NURSING NOTE: LOCAL TITLE: CLINICAL REMINDERS/NURSING STANDARD TITLE: PREVENTIVE MEDICINE NURSING NOTE DATE OF NOTE: DEC 22, 2023@10:30 ENTRY DATE: DEC 22, 2023@10:30:46 AUTHOR: LEELEE BOBBYER: URGENCY: STATUS: COMPLETED Homelessness/Food Insecurity Screen: In the past 2 months, have you been living in stable housing that you own, rent, or stay in as part of a household? Yes - Living in stable housing. Are you worried or concerned that in the next 2 months you may NOT have stable housing that you own, rent, or stay in as part of a household? No - Not worried about housing near future [employer] [facility] reports the following: Within the past 12 months, you worried whether your food would run out before you got money to buy more. Never true Within the past 12 months, the food you bought just didn't last and you didn't have money to get more. Never true Hepatitis B Serology/Immunization: The patient declines to have HBV serology done. Reason: patient choice COVID-19 Immunization: Patient educated on the need for receiving COVID-19 (SARS-CoV-2) immunization either at [facility] or outside facility. RHS Screen: RHS Screen Environmental Check Upon inquiry, the individual reports that the environment is safe to proceed. Informed Consent to Screen and Document The individual consents to proceed with screening. The individual consents to documentation of responses. PRIMARY SCREEN: In the past 12 months, how often did a current or former intimate partner (e.g., boyfriend, girlfriend, , , sexual partner): 1. Scream or curse at you Never 2. Insult or talk down to you Never 3. Threaten you with harm Never 4. Physically hurt you Never 5. Force or pressure you to have sexual contact against your will, or when you were unable to say no Never ?? The HITS tool (items 1-4 above) is [place] copyright protected by Elfego Santana MD, and the user has full rights to use it throughout the [place] system. PRIMARY SCREEN RESULT: The Primary Screen is NEGATIVE. The individual answered never to all forms of IPV above (i.e., answered never to all 5 items) The individual accepts education and/or resources: No EDUCATION: The individual indicated readiness to learn. Education offered during this session as noted above. The individual indicated understanding by asking relevant questions and making appropriate comments. No barriers to learning were observed or identified. /yunior/ LEELEE BOBBY LPN LPN Signed: 12/22/2023 10:32 LEELEE BOBBY
--- OUTSIDE RECORDS SUMMARY | 2024-06-29 18:52 | XMS_ITS ---
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 Name Role Phone ABDIRAHMAN LAKE [...] BASIC FAMIL Y Jun 24, 2009 [id number] [phone] ABHILASH GARAY PATIENT ANTHEM BCBS [place] FEP PREFERRED PROVIDER ORGANIZAT ION (PPO) FEP BASIC FAM Jun 24, 2009 112 [id number] [phone] ABHILASH GARAY PATIENT ANTHEM BCBS [place] F[place] PREFERRED PROVIDER ORGANIZAT ION (PPO) FEP BASIC FAM Jun 24, 2009 112 [id number] [phone] ABHILASH GARAY PATIENT ANTHEM [place] PREFERRED PROVIDER ORGANIZAT ION (PPO) FEP BASIC FAM Jun 24, 2009 112 [id number] [phone] ABHILASH GARAY PATIENT [place] PREFERRED PROVIDER ORGANIZAT ION (PPO) FEP BASIC FAM Jun 24, 2009 112 [id number] [phone] ABHILASH GARAY PATIENT [place] F[place] PREFERRED PROVIDER ORGANIZAT ION (PPO) BASIC FAMIL Y Jun 24, 2009 112 [id number] ABHILASH GARAY PATIENT [place] F[place] PREFERRED PROVIDER ORGANIZAT ION (PPO) BASIC FAMIL Y Jun 24, 2009 [id number] ABHILASH GARAY PATIENT [place] F[place] PREFERRED PROVIDER ORGANIZAT ION (PPO) BASIC FAMIL Y Jun 24, 2009 112 [id number] [phone] ABHILASH GARAY PATIENT [place] F[place] DENTAL DENTAL INSURANCE BASIC Jul 12, 2009 DENTAL [id number] ABHILASH GARAY PATIENT [place] F[place] PREFERRED PROVIDER ORGANIZAT ION (PPO) BASIC FAMIL Y Jun 24, 2009 [id number] [phone] ABHILASH GARAY PATIENT [employer] FEP ([id number]) PRESCRIPT ION FEPRX Jun 24, 2009 [id number] [phone] ABHILASH GARAY PATIENT [place] FEP BCBS PRESCRIPT ION CAREM ARK FEPRX PLAN Nov 21, 2021 [id number] ABHILASH GARAY PATIENT [employer] FEPRX PLAN PRESCRIPT ION CAREM ARK FEPRX Nov 21, 2021 [id number] ABHILASH GARAY PATIENT [place]-F EP BCBS PRESCRIPT ION FEP CAREM ARK Nov 21, 2021 [id number] ABHILASH GARAY PATIENT [place]-F EP BCBS PRESCRIPT ION FEP Jun 23, 2010 [id number] ABHILASH GARAY PATIENT MEDICARE (WN) MEDICARE () PART A Feb 22, 2020 PART A [id number] ABHILASH GARAY PATIENT MEDICARE ([facility]) MEDICARE (M) PART A Feb 22, 2020 PART A [id number] NV71 [phone] ABHILASH GARAY PATIENT MEDICARE (WNR) MEDICARE (M) PART A Feb 22, 2020 PART A [id number] [phone] ABHILASH GARAY PATIENT MEDICARE (WNR) MEDICARE (M) PART A Feb 22, 2020 PART A [id number] [id number] [phone] ABHILASH GARAY PATIENT MEDICARE (WNR) MEDICARE (M) PART A Feb 22, 2020 PART A [id number] ABHILASH GARAY PATIENT Selected Encounter This section includes the information on record at [place] for the Encounter. Date/Time Encounter Type Encounter Description Reason Provider Source Dec 05, 2023 03:00 PM Outpatient Encounter PROSTHETICS/ORTHOTI CS [facility] I[facility]ran Encounter Template Text not used by [place] Plan of Treatment: Future Appointments (+ 6 months) and Future Tests (+/- 45 days) The Plan of Treatment section includes future care activities for the patient [facility] [place] [facility] This section includes future appointments [...] 08, 2023 11:00 AM AMBULATORY - MEDICINE [facility] [place] [facility] Dec 11, 2023 01:00 PM AMBULATORY - MEDICINE [facility] [place] [facility] Dec 15, 2023 11:00 AM AMBULATORY - MEDICINE [place] [facility] [place] [facility] Dec 15, 2023 03:00 PM AMBULATORY - MEDICINE [facility] [place] [facility] Dec 17, 2023 02:00 PM AMBULATORY - REHAB MEDICIN [place] Dec 18, 2023 01:00 PM AMBULATORY - MEDICINE [place] [facility] [place] [facility] Dec 22, 2023 10:30 AM AMBULATORY - MEDICINE [facility] Dec 31, 2023 08:15 PM AMBULATORY - MEDICINE [facility] [place] [place] [facility] Jan 01, 2024 01:00 PM AMBULATORY - MEDICINE [facility] [place] [facility] Jan 02, 2024 09:30 AM AMBULATORY - REHAB MEDICIN [facility] [place] Jan 07, 2024 03:00 PM AMBULATORY - REHAB MEDICIN [facility] [place] Jan 08, 2024 01:00 PM AMBULATORY - MEDICINE [facility] [place] [facility] Jan 09, 2024 11:00 AM AMBULATORY - MEDICINE [facility] [place] [place] [facility] Jan 13, 2024 11:00 AM AMBULATORY - MEDICINE [facility] [place] [facility] Jan 14, 2024 03:00 PM AMBULATORY - REHAB MEDICIN [facility] [place] Jan 21, 2024 03:00 PM AMBULATORY - REHAB MEDICIN [facility] [place] Jan 28, 2024 11:00 AM AMBULATORY - MEDICINE [facility] [place] [place] [facility] Jan 30, 2024 08:00 AM AMBULATORY - MEDICINE [facility] Feb 02, 2024 02:00 PM AMBULATORY - MEDICINE [place] [facility] [place] [facility] Feb 04, 2024 11:00 AM [facility] Social History: Smoking Status (Most current) and [...] 08, 2023 09:12 AM VA-TOBACCO NEVER USED [facility] Tobacco Use History This section includes a history of the smoking, or tobacco-related health factors, that were collected on or before the date of the Encounter. The data comes from the [place] facility where the Encounter took place. Date/Time Smoking Status/Tobacco Use Comment F acility Aug 09, 2021 09:20 AM VA-TOBACCO NEVER USED [facility]
--- OUTSIDE RECORDS SUMMARY | 2024-06-29 18:52 | XMS_ITS | Encounter Summary ---
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 Name Role Phone ABDIRAHMAN LAKE Primary Care [...] BASIC FAMIL Y Jun 24, 2009 [id number] [phone] ABHILASH GARAY PATIENT ANTHEM BCBS [place] FEP PREFERRED PROVIDER ORGANIZAT ION (PPO) FEP BASIC FAM Jun 24, 2009 112 [id number] [phone] ABHILASH GARAY PATIENT ANTHEM [place]BS [place] F[place] PREFERRED PROVIDER ORGANIZAT ION (PPO) FEP BASIC FAM Jun 24, 2009 112 [id number] [phone] ABHILASH GARAY PATIENT [place] PREFERRED PROVIDER ORGANIZAT ION (PPO) FEP BASIC FAM Jun 24, 2009 112 [id number] [phone] ABHILASH GARAY PATIENT [place] PREFERRED PROVIDER ORGANIZAT ION (PPO) FEP BASIC FAM Jun 24, 2009 112 [id number] [phone] RUBI GARAYNETH PATIENT BCBS [place] FEP PREFERRED PROVIDER ORGANIZAT ION (PPO) BASIC FAMIL Y Jun 24, 2009 [id number] RUBI GARAYNETH PATIENT [place] PREFERRED PROVIDER ORGANIZAT ION (PPO) BASIC FAMIL Y Jun 24, 2009 [id number] RUBI GARAYNETH PATIENT [place] FEP PREFERRED PROVIDER ORGANIZAT ION (PPO) BASIC FAMIL Y Jun 24, 2009 [id number] 62 RUBI GARAYNETH PATIENT [place] FEP DENTAL DENTAL INSURANCE BASIC Jul 12, 2009 DENTAL [id number] DEJAHDANIKARUBI ACEVESNETH PATIENT [place] FEP PREFERRED PROVIDER ORGANIZAT ION (PPO) BASIC FAMIL Y Jun 24, 2009 [id number] [phone] ABHILASH GARAY PATIENT [employer] FEP ([id number]) PRESCRIPT ION FEPRX Jun 24, 2009 [id number] [phone] ABHILASH GARAY PATIENT [place] FEP BCBS PRESCRIPT ION CAREM ARK FEPRX PLAN Nov 21, 2021 [id number] ABHILASH GARAY PATIENT [employer] FEPRX PLAN PRESCRIPT ION CAREM ARK FEPRX Nov 21, 2021 [id number] [phone] ABHILASH GARAY PATIENT [place]ARK-F EP BCBS PRESCRIPT ION FEP CAREM ARK Nov 21, 2021 [id number] ABHILASH GARAY PATIENT [place]-F EP BCBS PRESCRIPT ION FEP Jun 23, 2010 [id number] RUBI GARAYNETH PATIENT MEDICARE ([facility]) MEDICARE () PART A Feb 22, 2020 PART A [id number] [phone] ABHILASH GARAY PATIENT MEDICARE (WNR) MEDICARE (M) PART A Feb 22, 2020 PART A [id number] ABHILASH GARAY PATIENT MEDICARE (WNR) MEDICARE (M) PART A Feb 22, 2020 PART A [id number] ABHILASH GARAY PATIENT MEDICARE (WNR) MEDICARE (M) PART A Feb 22, 2020 PART A [id number] ABHILASH GARAY PATIENT MEDICARE (WNR) MEDICARE (M) PART A Feb 22, 2020 PART A [id number] ABHILASH GARAY PATIENT Selected Encounter This section includes the information on record at [place] for the Encounter. Date/Time Encounter Type Encounter Description Reason Pro vider Source Dec 22, 2023 03:27 PM Outpatient Encounter ADMIN PAT ACTIVTIES (MASNONCT) IHE Encounter Template Text not used by [place] Plan of Treatment: Future Appointments (+ 6 months) and Future Tests (+/- 45 days) The Plan of Treatment section includes [facility] care [facility] the [facility] [place] [facility] This section includes future appointments and future [...] 08:15 PM AMBULATORY - MEDICINE [facility] Jan 01, 2024 01:00 PM AMBULATORY - MEDICINE [facility] Jan 02, 2024 09:30 AM [facility]ORY - [facility] Jan 07, 2024 03:00 PM [facility]ULATORY - [facility] Jan 08, 2024 01:00 PM AMBULATORY - MEDICINE [facility] Jan 09, 2024 11:00 AM AMBULATORY - MEDICINE [facility] Jan 13, 2024 11:00 AM AMBULATORY - MEDICINE [facility] Jan 14, 2024 03:00 PM [facility]ULATORY - [facility]AB [facility] Jan 21, 2024 03:00 PM [facility] Jan 28, 2024 11:00 AM [facility] Jan 30, 2024 08:00 [facility] Feb 02, 2024 02:00 PM [facility] Feb 04, 2024 11:00 AM [facility] Feb 09, 2024 11:30 AM [facility] Feb 09, 2024 02:00 PM [facility] Feb 19, 2024 01:00 PM [facility] Feb 25, 2024 11:00 AM [facility] - NONE [facility] Mar 04, 2024 01:00 PM [facility] Mar 09, 2024 01:00 PM [facility] Mar 11, 2024 11:00 AM [facility] Social History: Smoking Status (Most current) [...] 08, 2023 09:12 AM [facility] Tobacco Use History This section includes a history of the smoking, or tobacco-related health factors, that were collected on or before the date of the Encounter. The data comes from the [place] facility where the Encounter took place. Date/Time Smoking Status/Tobacco Use Comment Gilberto boston Aug 09, 2021 09:20 AM VA-TOBACCO NEVER USED [place] [facility] Encounter Notes: All associated encounter notes This section contains the clinical notes associated to the Encounter. Date/Time Encounter Note(s) Provider Source Dec 22, 2023 03:27 PM ADMINISTRATIVE NOTE: LOCAL TITLE: CCC: SCHEDULING ADMINISTRATION STANDARD TITLE: ADMINISTRATIVE NOTE DATE OF NOTE: DEC 22, 2023@15:27:18 ENTRY DATE: DEC 22, 2023@15:27:19 AUTHOR: KAYLIE HERNANDEZ EXP COSIGNER: URGENCY: STATUS: COMPLETED CCC: SCHEDULING ADMINISTRATION Has ADDENDA Patient Demographics Patient Name: ABHILASH GARAY Patient Primary Phone: [phone] Patient Primary Address: [address] [place] [address] Patient : 1955 Patient Age: 68 Current Location: [facility] Call Back Number: [phone] Caller/Recipient Relation to Patient: Other If Other Describe 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 KAYLIE STATED SHE SPOKE WITH THE NURSE AND THE NURSE STATED PT IS ON THE POTASSIUM TO PREVENT KINDEY STONES. KAYLIE STATED IF THERE IS ANY FURTHER QUESTIONS SHE CAN BE REACHED AT [phone] OPTION 2. /es/ KAYLIE HERNANDEZ VISN1 [facility] AMSA Signed: 12/22/2023 15:27 Receipt Acknowledged By: 12/23/2023 09:42 /es/ BREANNA BAKER RN-BC REGISTERED NURSE 12/30/2023 11:55 /es/ EUGENIE SALVADOR LPN Licensed Practical Nurse 12/23/2023 ADDENDUM STATUS: COMPLETED Called clinic and left voicemail requesting call back to author's direct line or fax to [phone] of [place]'s last office visit note for PCP review. Received call back from Jaspreet at [facility] who confirmed their last office visit note from May 2023 notes that is taking potassium citrate 10 meq, take 2 tablets twice daily. Jaspreet is going to fax last office visit for 's records to [phone] /yunior/ BREANNA BAKER RN-BC REGISTERED NURSE Signed: 12/23/2023 09:46 KAYLIE HERNANDEZ [place] [facility]
--- OUTSIDE RECORDS SUMMARY | 2024-06-29 18:53 | XMS_ITS | Encounter Summary ---
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 Name Role Phone ABDIRAHMAN LAKE Primary Care [...] BASIC FAMIL Y Jun 24, 2009 [id number] [phone] MARIO GARAY PATIENT ANTHEM BCBS [place] FEP PREFERRED PROVIDER ORGANIZAT ION (PPO) FEP BASIC FAM Jun 24, 2009 [id number] [phone] MARIO GARAY PATIENT ANTHEM [place] PREFERRED PROVIDER ORGANIZAT ION (PPO) FEP BASIC FAM Jun 24, 2009 112 [id number] [phone] MARIO GARAY PATIENT [place] PREFERRED PROVIDER ORGANIZAT ION (PPO) FEP BASIC FAM Jun 24, 2009 112 [id number] [phone] MARIO GARAY PATIENT [place] PREFERRED PROVIDER ORGANIZAT ION (PPO) FEP BASIC FAM Jun 24, 2009 [id number] [phone] MARIO GARAY PATIENT [place]BS [place] F[place] PREFERRED PROVIDER ORGANIZAT ION (PPO) BASIC FAMIL Y Jun 24, 2009 112 [id number] [phone] MARIO GARAY PATIENT [place] FEP PREFERRED PROVIDER ORGANIZAT ION (PPO) BASIC FAMIL Y Jun 24, 2009 [id number] [phone] MARIO GARAY PATIENT [place] FEP PREFERRED PROVIDER ORGANIZAT ION (PPO) BASIC FAMIL Y Jun 24, 2009 [id number] MARIO GARAY PATIENT [place] F[place] DENTAL DENTAL INSURANCE BASIC Jul 12, 2009 DENTAL [id number] 62 MARIO GARAY PATIENT [place] FEP PREFERRED PROVIDER ORGANIZAT ION (PPO) BASIC FAMIL Y Jun 24, 2009 [id number] [phone] MARIO GARAY PATIENT [employer] FEP ([id number]) PRESCRIPT ION FEPRX Jun 24, 2009 [id number] [phone] MARIO GARAY PATIENT [employer] FEP BCBS PRESCRIPT ION CAREM ARK FEPRX PLAN Nov 21, 2021 [id number] MARIO GARAY PATIENT [employer] FEPRX PLAN PRESCRIPT ION CAREM ARK FEPRX Nov 21, 2021 [id number] [phone] MARIO GARAY PATIENT [employer]-F EP BCBS PRESCRIPT ION FEP CAREM ARK Nov 21, 2021 [id number] MARIO GARAY PATIENT [employer]-F EP BCBS PRESCRIPT ION FEP Jun 23, 2010 [id number] RUBI GARAYNETH PATIENT MEDICARE (WNR) MEDICARE (M) PART A Feb 22, 2020 PART A [id number] MARIO GARAY PATIENT MEDICARE (WNR) MEDICARE (M) PART A Feb 22, 2020 PART A [id number] [facility] MARIO GARAY PATIENT MEDICARE (WNR) MEDICARE (M) PART A Feb 22, 2020 PART A [id number] MARIO GARAY PATIENT MEDICARE (WNR) MEDICARE (M) PART A Feb 22, 2020 PART A [id number] [facility] [phone] MARIO GARAY PATIENT MEDICARE (WNR) MEDICARE (M) PART A Feb 22, 2020 PART A [id number] [phone] MARIO GARAY PATIENT Selected Encounter This section includes the information on record at [place] for the Encounter. Date/Time Encounter Type Encounter Description Reason Provider Source Jan 02, 2024 09:30 AM THERAPEUTIC EXERCISES PHYSICAL THERAPY ICD-10-CM M41.9 Scoliosis, unspecified JESSICA MEDRANO Fran Encounter Template Text not used by [place] Assessments - Encounter Diagnoses This section includes the primary and secondary diagnoses documented for the Encounter. Date/Time Primary/Secondary Diagnosis Diagnosis Name Provider Source Jan 02, 2024 09:30 AM PRIMARY Scoliosis, unspecified HERO MEDRANO Plan of Treatment: Future Appointments (+ 6 months) and Future Tests (+/- 45 days) The Plan of Treatment section includes future care activities for the patient from all [place] treatmentfacilities. This section includes future appointments and future orders which are active, pending or scheduled. Future Appointments This section includes appointments that were scheduled to occur 6 months from the date of the Encounter, up to a maximum of 20 appointments. The data comes from all [place] treatment facilities. Appointment Date/Time Appointment Type Appointme nt Facility Name Jan 07, 2024 03:00 PM AMBULATORY - REHAB [facility] Jan 08, 2024 01:00 PM AMBULATORY - MEDICINE [facility] [place] [facility] Jan 09, 2024 11:00 AM AMBULATORY - MEDICINE [facility] [place] [facility] Jan 13, 2024 11:00 AM AMBULATORY - MEDICINE [place] [facility] [place] [facility] Jan 14, 2024 03:00 PM AMBULATORY - REHAB [facility] Jan 21, 2024 03:00 PM AMBULATORY - REHAB [facility] Jan 28, 2024 11:00 AM [facility]ORY [facility] [place] [facility] Jan 30, 2024 08:00 AM [facility] Feb 02, 2024 02:00 PM AM[facility]AT[facility]INE [facility] [place] [facility] Feb 04, 2024 11:00 AM AM[facility]ULATORY [facility] [place] [facility] Feb 09, 2024 11:30 AM AM[facility]AT[facility] [place] [facility] Feb 09, 2024 02:00 PM AM[facility]ULATORY - [facility]INE [facility] [place] [facility] Feb 19, 2024 01:00 PM AM[facility]ULATORY - [facility]INE [facility] [place] [facility] Feb 25, 2024 11:00 AM AMBULATORY - NONE [facility] [place] [facility] Mar 04, 2024 01:00 PM AMBULATORY - MEDICINE [facility] [place] [facility] Mar 09, 2024 01:00 PM AM[facility]ULATORY - [facility]ICINE [facility] [place] [facility] Mar 11, 2024 11:00 AM [facility]AT[facility]INE [facility] [place] [facility] Mar 15, 2024 12:15 PM AM[facility]ULATORY - [facility]INE [facility] [place] [facility] Mar 25, 2024 01:00 PM AM[facility]ULATORY [facility]INE [facility] [place] [facility] Apr 06, 2024 10:30 AM AM[facility]ULATORY - MEDICINE [facility] Social History: Smoking Status (Most [...] Odalis casey Aug 18, 2020 10:00 AM [place]-TOBACCO NEVER USED [facility] Tobacco Use History This section includes a history of the smoking, or tobacco-related health factors, that were collected on or before the date of the Encounter. The data comes from the [place] facility where the Encounter took place. Date/Time Smoking Status/Tobacco Use Comment Gilberto acjaved Dec 15, 2018 12:14 PM VA-TOBACCO NEVER USED [facility] Jun 11, 2017 04:15 PM LIFETIME NON-TOBACCO USER [facility] Jan 01, 2016 11:12 AM LIFETIME NON-TOBACCO USER [facility] Jan 16, 2005 08:54 AM LIFETIME NON-SMOKER [facility] Nov 29, 2003 08:05 AM LIFETIME NON-SMOKER [facility] Jan 07, 2001 08:33 AM LIFETIME NON-SMOKER [facility] Encounter Notes: All associated encounter notes This section contains the clinical notes associated to the Encounter. Date/Time Encounter Note(s) Provider Source Jan 02, 2024 07:30 AM PHYSICAL THERAPY N OTE: LOCAL TITLE: PHYSICAL THERAPY STANDARD TITLE: PHYSICAL THERAPY NOTE DATE OF NOTE: JAN 02, 2024@07:30 ENTRY DATE: JAN 02, 2024@07:30:59 AUTHOR: HERO MEDRANO EXP COSIGNER: URGENCY: STATUS: COMPLETED Initial Evaluation date: 12/17/23 Progress Note Date: 01/16/24 Treatment #: 1 Treatment time: 30 Diagnosis:Scoliosis, unspecified(ICD-10-CM M41.9) Provider:VESTA BLISS PT Treatment Precautions: Patient identified by full name and date of goes by Rubi or Mario SUBJECTIVE: patient states their lower back is feeling about the same. Notes the lower back pain has been variable. OBJECTIVE: Therapeutic Exercise: Mins: 26 nustep 8mins standing hip abduction 2x10 standing gastroc stretch 30s SKTC 30s each lower trunk rotation 2mins sidelying thoracic rotation 10reps sidelying hip abduction 10reps Manual therapy: Mins: Neuro re-ed: Mins: Other: Mins: Modalities: Mins: [] contraindication screen completed prior to modality [] skin intact pre/post modality Access Code: [email or web address] URL: [email or web address] Date: 12/17/2023 Prepared by: Hero Medrano Exercises - Seated Hamstring Stretch - [...] weekly - 2-3 sets - 30 hold PATIENT EDUCATION: Mins: 2 Patient education was provided for all aspects of care during this clinical encounter. Provided updated written HEP to patient reviewing proper form sets reps and frequency and safety precautions with patient verbalizing and demonstrating good understanding during visit. ASSESSMENT: Patient seen for routine follow up. No change in symptoms reported since eval. Quetionable compliance with HEP. Today, provided instruction for lumbar ROM and gluteal strengthening exercises with fair tolerance from patient. Some discomofrt reported with SKTC, otherwise tolerated well. Povided updated written HEp for carryover. PLAN: Progress as tolerated flexion based therex program focusing on improving [...] []Estim/Tens []Mechanical traction []K-tape [] Biofreeze /es/ HERO MEDRANO PT, DPT PHYSICAL THERAPIST Signed: 01/02/2024 09:47 HERO MEDRANO [facility]
--- OUTSIDE RECORDS SUMMARY | 2024-06-29 18:53 | XMS_ITS | Encounter Summary ---
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 Name Role Phone ABDIRAHMAN LAKE Primary [...] BASIC FAMIL Y Jun 24, 2009 [id number] [phone] ABHILASH GARAY PATIENT ANTHEM BCBS IN FEP PREFERRED PROVIDER ORGANIZAT ION (PPO) FEP BASIC FAM Jun 24, 2009 [id number] [phone] ABHILASH GARAY PATIENT ANTHEM [place]BS [place] F[place] PREFERRED PROVIDER ORGANIZAT ION (PPO) FEP BASIC FAM Jun 24, 2009 112 [id number] [phone] ABHILASH GARAY PATIENT [place]THE[place] PREFERRED PROVIDER ORGANIZAT ION (PPO) FEP BASIC FAM Jun 24, 2009 112 [id number] [phone] ABHILASH GARAY PATIENT [place] PREFERRED PROVIDER ORGANIZAT ION (PPO) FEP BASIC FAM Jun 24, 2009 [id number] [phone] RUBI GARAYNETH PATIENT [place]BS [place] F[place] PREFERRED PROVIDER ORGANIZAT ION (PPO) BASIC FAMIL Y Jun 24, 2009 [id number] RUBI GARAYNETH PATIENT [place] FEP PREFERRED PROVIDER ORGANIZAT ION (PPO) BASIC FAMIL Y Jun 24, 2009 [id number] RUBI GARAYNETH PATIENT [place] FEP PREFERRED PROVIDER ORGANIZAT ION (PPO) BASIC FAMIL Y Jun 24, 2009 [id number] RUBI GARAYNETH PATIENT [place] FEP DENTAL DENTAL INSURANCE BASIC Jul 12, 2009 DENTAL [id number] [phone] DEJAHDANIKARUBI ACEVESNETH PATIENT [place] F[place] PREFERRED PROVIDER ORGANIZAT ION (PPO) BASIC FAMIL Y Jun 24, 2009 [id number] ABHILASH GARAY PATIENT [employer] FEP ([id number]) PRESCRIPT ION FEPRX Jun 24, 2009 [id number] [phone] ABHILASH GARAY PATIENT [place] FEP BCBS PRESCRIPT ION CAREM ARK FEPRX PLAN Nov 21, 2021 [id number] ABHILASH GARAY PATIENT [employer] FEPRX PLAN PRESCRIPT ION CAREM ARK FEPRX Nov 21, 2021 [id number] ABHILASH GARAY PATIENT [employer]-F EP BCBS PRESCRIPT ION FEP CAREM ARK Nov 21, 2021 [id number] ABHILASH GARAY PATIENT [place]-F EP BCBS PRESCRIPT ION FEP Jun 23, 2010 [id number] RUBI GARAYNETH PATIENT MEDICARE ([facility] MEDICARE () PART A Feb 22, 2020 PART A [id number] ABHILASH GARAY PATIENT MEDICARE (WNR) MEDICARE (M) PART A Feb 22, 2020 PART A [id number] [phone] ABHILASH GARAY PATIENT MEDICARE (WNR) MEDICARE (M) PART A Feb 22, 2020 PART A [id number] [phone] ABHILASH GARAY PATIENT MEDICARE (WNR) MEDICARE (M) PART A Feb 22, 2020 PART A [id number] [phone] ABHILASH GARAY PATIENT MEDICARE (WNR) MEDICARE (M) PART A Feb 22, 2020 PART A [id number] [phone] ABHILASH GARAY PATIENT Selected Encounter This section includes the information on record at [place] for the Encounter. Date/Time Encounter Type Encounter Description Reason Pro vider Source Jan 02, 2024 11:08 AM Outpatient Encounter ADMIN PAT ACTIVTIES (MASNONCT) IHE Encounter Template Text not used by [place] [...] 07, 2024 03:00 PM AMBULATORY - RE[facility]AB [facility] Jan 08, 2024 01:00 PM AMBULATORY - MEDICINE [facility] [place] [place] [facility] Jan 09, 2024 11:00 AM AMBULATORY - MEDICINE [facility] [place] [facility] Jan 13, 2024 11:00 AM AMBULATORY - MEDICINE [facility] [place] [facility] Jan 14, 2024 03:00 PM AMBULATORY - REHAB [facility] Jan 21, 2024 03:00 PM AMBULATORY - REHAB [facility] Jan 28, 2024 11:00 AM AM[place]ULATORY [place] [facility] [place] [facility] Jan 30, 2024 08:00 AM AMBULATORY - MEDICINE [facility] Feb 02, 2024 02:00 PM AM[facility]ULATORY - [facility]ICINE [facility] [place] [place] [facility] Feb 04, 2024 11:00 AM AMBULATORY [facility]INE [facility] [place] [facility] Feb 09, 2024 11:30 AM AMBULATORY - [facility]INE [facility] [place] [place] [facility] Feb 09, 2024 02:00 PM AMBULATORY - [facility]INE [facility] [place] [facility] Feb 19, 2024 01:00 PM AMBULATORY - MEDICINE [facility] [place] [facility] Feb 25, 2024 11:00 AM AMBULATORY - NONE [facility] [place] [facility] Mar 04, 2024 01:00 PM AMBULATORY - MEDICINE [facility] [place] [place] [facility] Mar 09, 2024 01:00 PM AMBULATORY - [facility]INE [facility] [place] [facility] Mar 11, 2024 11:00 AM AMBULATORY - [facility]INE [facility] [place] [facility] Mar 15, 2024 12:15 PM AMBULATORY - MED[facility]INE [facility] [place] [facility] Mar 25, 2024 01:00 PM AMBULATORY - MEDICINE [facility] [place] [facility] Apr 06, 2024 10:30 AM AMBULATORY - MEDICINE [facility] Social History: Smoking Status (Most [...] 08, 2023 09:12 AM VA-TOBACCO NEVER USED [facility] Tobacco Use History This section includes a history of the smoking, or tobacco-related health factors, that were collected on or before the date of the Encounter. The data comes from the [place] facility where the Encounter took place. Date/Time Smoking Status/Tobacco Use Comment F acjaved Aug 09, 2021 09:20 AM [facility] Encounter Notes: All associated encounter notes This section contains the clinical notes associated to the Encounter. Date/Time Encounter Note(s) Provider Source Jan 02, 2024 11:08 AM ADMINISTRATIVE NOT E: LOCAL TITLE: CCC: SCHEDULING ADMINISTRATION STANDARD TITLE: ADMINISTRATIVE NOTE DATE OF NOTE: JAN 02, 2024@11:08:46 ENTRY DATE: JAN 02, 2024@11:08:46 AUTHOR: ARTHUR HUNTER EXP COSIGNER: URGENCY: STATUS: COMPLETED Patient Demographics Patient Name: ABHILASH GARAY Patient Primary Phone: [phone] Patient Primary Address: [address] [place] [address] Patient : 1955 Patient Age: 68 Caller/Recipient Relation to Patient: Self Administrative Administrative Note Reason: Returned Call Administrative Note Comments: Pt. requests return call from [facility] to discuss aqua therapy. P: [phone] /es/ ARTHUR CHÁVEZ [facility] AMSA Signed: 01/02/2024 11:08 Receipt Acknowledged By: 01/05/2024 16:17 /es/ STEF BAKERN RN-BC REGISTERED NURSE 01/02/2024 13:09 /es/ EUGENIE SALVADOR LPN Licensed Practical Nurse [facility] [place] [facility]
--- OUTSIDE RECORDS SUMMARY | 2024-06-29 18:53 | XMS_ITS ---
Author Name [facility] [place] [facility] [place] Address [address] [place] [address] Care Team Providers Care Web Content Executive Name Role Phone ABDIRAHMAN LAKE Primary Care [...] BASIC FAMIL Y Jun 24, 2009 [id number] [phone] ABHILASH GARAY PATIENT ANTHEM BCBS [place] FEP PREFERRED PROVIDER ORGANIZAT ION (PPO) FEP BASIC FAM Jun 24, 2009 112 [id number] [phone] ABHILASH GARAY PATIENT ANTHEM BCBS [place] F[place] PREFERRED PROVIDER ORGANIZAT ION (PPO) FEP BASIC FAM Jun 24, 2009 112 [id number] [phone] ABHILASH GARAY PATIENT ANTHEM [place] F[place] PREFERRED PROVIDER ORGANIZAT ION (PPO) FEP BASIC FAM Jun 24, 2009 112 [id number] [phone] ABHILASH GARAY PATIENT [place] F[place] PREFERRED PROVIDER ORGANIZAT ION (PPO) FEP BASIC FAM Jun 24, 2009 112 [id number] [phone] ABHILASH GARAY PATIENT BCBS [place] FEP PREFERRED PROVIDER ORGANIZAT ION (PPO) BASIC FAMIL Y Jun 24, 2009 [id number] ABHILASH GARAY PATIENT [place] PREFERRED PROVIDER ORGANIZAT ION (PPO) BASIC FAMIL Y Jun 24, 2009 112 [id number] [phone] ABHILASH GARAY PATIENT [place] FEP PREFERRED PROVIDER ORGANIZAT ION (PPO) BASIC FAMIL Y Jun 24, 2009 112 [id number] [phone] ABHILASH GARAY PATIENT [place] FEP DENTAL DENTAL INSURANCE BASIC Jul 12, 2009 DENTAL [id number] ABHILASH GARAY PATIENT [place] FEP PREFERRED PROVIDER ORGANIZAT ION (PPO) BASIC FAMIL Y Jun 24, 2009 [id number] ABHILASH GARAY PATIENT [place] FEP ([id number]) PRESCRIPT ION FEPRX Jun 24, 2009 [id number] [phone] ABHILASH GARAY PATIENT [place] FEP BCBS PRESCRIPT ION CAREM ARK FEPRX PLAN Nov 21, 2021 [id number] ABHILASH GARAY PATIENT [place] FEPRX PLAN PRESCRIPT ION CAREM ARK FEPRX Nov 21, 2021 [id number] ABHILASH GARAY PATIENT [place]-F EP BCBS PRESCRIPT ION FEP CAREM ARK Nov 21, 2021 [id number] ABHILASH GARAY PATIENT [place]-F EP BCBS PRESCRIPT ION FEP Jun 23, 2010 [id number] ABHILASH GARAY PATIENT MEDICARE (WN) MEDICARE () PART A Feb 22, 2020 PART A [id number] ABHILASH GARAY PATIENT MEDICARE ([facility]) MEDICARE () PART A Feb 22, 2020 PART A [id number] ABHILASH GARAY PATIENT MEDICARE (WNR) MEDICARE (M) PART A Feb 22, 2020 PART A [id number] ABHILASH GARAY PATIENT MEDICARE (WNR) MEDICARE (M) PART A Feb 22, 2020 PART A [id number] ABHILASH GARAY PATIENT MEDICARE (WNR) MEDICARE (M) PART A Feb 22, 2020 PART A [id number] ABHILASH GARAY PATIENT Selected Encounter This section includes the information on record at [place] for the Encounter. Date/Time Encounter Type Encounter Description Reason Pro vider Source Dec 12, 2023 12:00 PM Outpatient Encounter COMMUNITY CARE CONSULT IHE Encounter Template Text not used by [place] Plan of Treatment: Future Appointments (+ 6 months) and Future Tests (+/- 45 days) The Plan of Treatment section includes future care [facility] the [facility] [place] [facility] This section includes future appointments and future orders which are active, pending or scheduled. Future Appointments This section includes appointments that were scheduled to occur 6 months from the date of the Encounter, up to a maximum of 20 appointments. The data comes from all [place] treatment facilities. Appointment Date/Time Appointment Type Appointme nt Facility Name Dec 15, 2023 11:00 AM AMBULATORY - MEDICINE [facility] [facility] Dec 15, 2023 03:00 PM AMBULATORY - MEDICINE [facility] [place] [facility] Dec 17, 2023 02:00 PM AMBULATORY - REHAB [facility] Dec 18, 2023 01:00 PM AMBULATORY - MEDICINE [facility] [place] [facility] Dec 22, 2023 10:30 AM AMBULATORY - MEDICINE [facility] Dec 31, 2023 08:15 PM AMBULATORY - MEDICINE [facility] [place] [facility] Jan 01, 2024 01:00 PM AMBULATORY - MEDICINE [facility] [place] [facility] Jan 02, 2024 09:30 AM AMBULATORY - [facility] Jan 07, 2024 03:00 PM AMBULATORY [facility] Jan 08, 2024 01:00 PM [facility] [place] [facility] Jan 09, 2024 11:00 AM AM[facility]INE [facility] [place] [facility] Jan 13, 2024 11:00 AM AM[facility]ATORY [facility]INE [facility] [place] [facility] Jan 14, 2024 03:00 PM AMBULATORY - [facility] Jan 21, 2024 03:00 PM AMBULATORY - [facility] Jan 28, 2024 11:00 AM AM[facility]ATORY [facility]ICINE [facility] [place] [facility] Jan 30, 2024 08:00 AM AMBULATORY - MEDICINE [facility] Feb 02, 2024 02:00 PM AMBULATORY - MEDICINE [place] [facility] [place] [facility] Feb 04, 2024 11:00 AM AMBULATORY - MEDICINE [place] [facility] [facility] Feb 09, 2024 11:30 AM AMBULATORY - MEDICINE [place] [facility] [place] [facility] Feb 09, 2024 02:00 PM [facility] Social History: Smoking Status (Most current) and Tobacco Use (All prior to encounter date) This section includes the most current, and the historical, smoking and tobacco- related health factors from the [place] facility where the Encounter took place. Current Smoking Status This section includes the most current smoking, or tobacco-related health factor, from the [place] facility where the Encounter took place. Date/Time Current Smoking Status Comment Odalis casey Apr 08, 2023 09:12 AM [facility]CO [facility] Tobacco Use History This section includes a history of the smoking, or tobacco-related health factors, that were collected on or before the date of the Encounter. The data comes from the [place] facility where the Encounter took place. Date/Time Smoking Status/Tobacco Use Comment F acjaved Aug 09, 2021 09:20 AM [facility] Encounter Notes: All associated encounter notes This section contains the clinical notes associated to the Encounter. Date/Time Encounter Note(s) Provider Source Dec 12, 2023 12:00 PM NONVA CONSULT: LOCAL TITLE: COMMUNITY CARE-CONSULT RESULT NOTE STANDARD TITLE: NONVA CONSULT DATE OF NOTE: DEC 12, 2023@12:00 ENTRY DATE: JAN 05, 2024@10:04:07 AUTHOR: MARY KATE GOODSON EXP COSIGNER: URGENCY: STATUS: COMPLETED VistA Imaging - Scanned Document SCANNED DOCUMENT SIGNATURE NOT REQUIRED Electronically Filed: 01/05/2024 by: MARY KATE GOODSON CTO MARY KATE GOODSON [place] [facility]
--- OUTSIDE RECORDS SUMMARY | 2024-06-29 18:53 | XMS_ITS | Encounter Summary ---
Author Name [facility] [place] [facility] [place] Organization [facility] [place] Address [address] [place] [address] Care Team Providers Care Director Of Housing And Energy Services Name Role Phone ABDIRAHMAN LAKE Primary Care [...] BASIC FAMIL Y Jun 24, 2009 [id number] [phone] ABHILASH GARAY PATIENT ANTHEM BCBS [place] FEP PREFERRED PROVIDER ORGANIZAT ION (PPO) FEP BASIC FAM Jun 24, 2009 112 [id number] [phone] ABHILASH GARAY PATIENT ANTHEM [place]BS [place] F[place] PREFERRED PROVIDER ORGANIZAT ION (PPO) FEP BASIC FAM Jun 24, 2009 112 [id number] [phone] ABHILASH GARAY PATIENT [place] PREFERRED PROVIDER ORGANIZAT ION (PPO) FEP BASIC FAM Jun 24, 2009 112 [id number] [phone] ABHILASH GARAY PATIENT [place] PREFERRED PROVIDER ORGANIZAT ION (PPO) FEP BASIC FAM Jun 24, 2009 112 [id number] [phone] RUBI GARAYNETH PATIENT [place]BS [place] F[place] PREFERRED PROVIDER ORGANIZAT ION (PPO) BASIC FAMIL Y Jun 24, 2009 [id number] RUBI GARAYNETH PATIENT [place] PREFERRED PROVIDER ORGANIZAT ION (PPO) BASIC FAMIL Y Jun 24, 2009 112 [id number] [phone] RUBI GARAYNETH PATIENT [place] FEP PREFERRED PROVIDER ORGANIZAT ION (PPO) BASIC FAMIL Y Jun 24, 2009 112 [id number] RUBI GARAYNETH PATIENT [place] F[place] DENTAL DENTAL INSURANCE BASIC Jul 12, 2009 DENTAL [id number] DEJAHDANIKARUBI ACEVESNETH PATIENT [place] F[place] PREFERRED PROVIDER ORGANIZAT ION (PPO) BASIC FAMIL Y Jun 24, 2009 [id number] ABHILASH GARAY PATIENT [place] FEP ([id number]) PRESCRIPT ION FEPRX Jun 24, 2009 [id number] [phone] ABHILASH GARAY PATIENT [place] FEP BCBS PRESCRIPT ION CAREM ARK FEPRX PLAN Nov 21, 2021 [id number] ABHILASH GARAY PATIENT [place] FEPRX PLAN PRESCRIPT ION CAREM ARK FEPRX Nov 21, 2021 [id number] ABHILASH GARAY PATIENT [place]-F EP BCBS PRESCRIPT ION FEP CAREM ARK Nov 21, 2021 [id number] ABHILASH GARAY PATIENT [place]-F EP BCBS PRESCRIPT ION FEP Jun 23, 2010 [id number] RUBI GARAYNETH PATIENT MEDICARE ([facility]) MEDICARE () PART A Feb 22, 2020 PART A [id number] ABHILASH GARAY PATIENT MEDICARE (WNR) MEDICARE (M) PART A Feb 22, 2020 PART A [id number] NV71 [id number] ABHILASH GARAY PATIENT MEDICARE (WNR) MEDICARE (M) PART A Feb 22, 2020 PART A [id number] NV71 [id number] ABHILASH GARAY PATIENT MEDICARE (WNR) MEDICARE (M) PART A Feb 22, 2020 PART A [id number] ABHILASH GARAY PATIENT MEDICARE (WNR) MEDICARE (M) PART A Feb 22, 2020 PART A [id number] ABHILASH GARAY PATIENT Selected Encounter This section includes the information on record at [place] for the Encounter. Date/Time Encounter Type Encounter Description Reason Pro vider Source Dec 31, 2023 09:44 AM Outpatient Encounter ADMIN PAT ACTIVTIES (MASNONCT) IHE Encounter Template Text not used by DC Plan of Treatment: Future Appointments (+ 6 months) and Future Tests (+/- 45 days) The Plan of Treatment section includes future care activities for the patient from all [place] treatmentfacilities. This section includes future appointments and future orders which are active, pending or scheduled. Future Appointments This section includes appointments that were scheduled to occur 6 months from the date of the Encounter, up to a maximum of 20 appointments. The data comes from all [place] treatment facilities. Appointment Date/Time Appointment Type Appointme nt Facility Name Jan 01, 2024 01:00 PM AMBULATORY - MEDICINE [facility] [place] [facility] Jan 02, 2024 09:30 [facility] Jan 07, [facility]24 03:00 PM [facility] Jan 08, 2024 01:00 PM AMBULATORY - MEDICINE [facility] [place] [facility] Jan 09, 2024 11:00 AM AMBULATORY - MEDICINE [place] [facility] [place] [facility] Jan 13, 2024 11:00 AM AMBULATORY - MEDICINE [place] [facility] [place] [facility] Jan 14, 2024 03:00 [facility], [facility]24 03[facility] Jan 28, 2024 11:00 AM AM[facility]ULATORY - MEDICINE [facility] [place] [facility] Jan 30, 2024 08:00 AM [facility] Feb 02, 2024 02:00 PM AMBULATORY - MEDICINE [facility] [place] [facility] Feb 04, 2024 11:00 AM AMBULATORY - MEDICINE [facility] [place] [facility] Feb 09, 2024 11:30 AM AMBULATORY - MEDICINE [facility] [place] [facility] Feb 09, 2024 02:00 PM AMBULATORY - MEDICINE [facility] [place] [facility] Feb 19, 2024 01:00 PM AMBULATORY - MEDICINE [facility] [place] [facility] Feb 25, 2024 11:00 AM AMBULATORY - NONE [facility] [place] [facility] Mar 04, 2024 01:00 PM AMBULATORY - MEDICINE [facility] [place] [facility] Mar 09, 2024 01:00 PM AMBULATORY - MEDICINE [facility] [place] [facility] Mar 11, 2024 11:00 AM AMBULATORY - MEDICINE [facility] [place] [facility] Mar 15, 2024 12:15 PM AMBULATORY - MEDICINE [place] [facility] [place] [facility] Social History: Smoking Status (Most [...] 08, 2023 09:12 AM [facility]CO [facility] Tobacco Use History This section includes a history of the smoking, or tobacco-related health factors, that were collected on or before the date of the Encounter. The data comes from the [place] facility where the Encounter took place. Date/Time Smoking Status/Tobacco Use Comment Gilberto boston Aug 09, 2021 09:20 AM [facility]TOBACCO [facility] Encounter Notes: All associated encounter notes This section contains the clinical notes associated to the Encounter. Date/Time Encounter Note(s) Provider Source Jan 12, 2024 04:26 PM ADDENDUM: LOCAL TITLE: Addendum STANDARD TITLE: ADDENDUM DATE OF NOTE: JAN 12, 2024@16:26:39 ENTRY DATE: JAN 12, 2024@16:26:40 AUTHOR: VESTA BLISS COSIGNER: URGENCY: STATUS: COMPLETED Please inform the [place] I placed vascular consultation for varicose veins /yunior/ VESTA BLISS MD PRIMARY CARE PHYSICIAN Signed: 01/12/2024 16:26 Receipt Acknowledged By: 01/14/2024 10:00 /yunior/ BREANNA BAKER RN-RONI REGISTERED NURSE --- Original Document --- 12/31/23 CCC: SCHEDULING ADMINISTRATION: Patient Demographics Patient Name: ABHILASH GARAY Patient Primary Phone: [phone] Patient Primary Address: [address] [place] [address] Patient : 1955 Patient Age: 68 Caller/Recipient Relation to Patient: Self Administrative Administrative Note Reason: Other Administrative Note Comments: PATIENT requesting a call back from Pact Nurse in regards to aqua therapy consult and also a referral for Varicose veins number of file confirmed /yunior/ LEOBARDO LAMBERT VISN1 [facility] Signed: 12/31/2023 09:44 Receipt Acknowledged By: 12/31/2023 15:45 /yunior/ BREANNA BAKER REGISTERED NURSE 12/31/2023 16:00 /yunior/ EUGENIE SALVADOR LPN Licensed Practical Nurse 12/31/2023 ADDENDUM STATUS: COMPLETED Called and left voicemail requesting call back to pact at [phone] /yunior/ BREANNA BAKER RN-RONI REGISTERED NURSE Signed: 12/31/2023 15:46 01/08/2024 ADDENDUM STATUS: COMPLETED [place] is requesting a consult for evaluation and treatment of his varicose veings. Forwarding to pcp for review of request. /yunior/ RADHIKA GOMEZ, BSN RN-BC REGISTERED NURSE Signed: 01/08/2024 13:02 Receipt Acknowledged By: 01/12/2024 16:26 /yunior/ VESTA BLISS MD PRIMARY CARE PHYSICIAN VESTA BLISS [place] [facility] [place] [facility] Jan 08, 2024 01:01 PM ADDENDUM: LOCAL TITLE: Addendum STANDARD TITLE: ADDENDUM DATE OF NOTE: JAN 08, 2024@13:01:48 ENTRY DATE: JAN 08, 2024@13:01:49 AUTHOR: RADHIKA GOMEZ COSIGNER: URGENCY: STATUS: COMPLETED [place] is requesting a consult for evaluation and treatment of his varicose veings. Forwarding to pcp for review of request. /yunior/ BREANNA BAKER REGISTERED NURSE Signed: 01/08/2024 13:02 Receipt Acknowledged By: 01/12/2024 16:26 /yunior/ VESTA BLISS MD PRIMARY CARE PHYSICIAN --- Original Document --- 12/31/23 CCC: SCHEDULING ADMINISTRATION: Patient Demographics Patient Name: ABHILASH GARAY Patient Primary Phone: [phone] Patient Primary Address: [address] [place] [address] Patient : 1955 Patient Age: 68 Caller/Recipient Relation to Patient: Self Administrative Administrative Note Reason: Other Administrative Note Comments: PATIENT requesting a call back from Pact Nurse in regards to aqua therapy consult and also a referral for Varicose veins number of file confirmed /es/ LEOBARDO [id number] [facility] Signed: 12/31/2023 09:44 Receipt Acknowledged By: 12/31/2023 15:45 /yunior/ BREANNA BAKER RN-RONI REGISTERED NURSE 12/31/2023 16:00 /es/ EUGENIE SALVADOR LPN Licensed Practical Nurse 12/31/2023 ADDENDUM STATUS: COMPLETED Called and left voicemail requesting call back to pact at [phone] /yunior/ BREANNA BAKER RN-BC REGISTERED NURSE Signed: 12/31/2023 15:46 RADHIKA GOMEZ [facility] [place] [facility] Dec 31, 2023 09:44 AM ADMINISTRATIVE NOT E: LOCAL TITLE: CCC: SCHEDULING ADMINISTRATION STANDARD TITLE: ADMINISTRATIVE NOTE DATE OF NOTE: DEC 31, 2023@09:44:31 ENTRY DATE: DEC 31, 2023@09:44:31 AUTHOR: LEOBARDO LAMBERT COSIGNER: URGENCY: STATUS: COMPLETED CCC: SCHEDULING ADMINISTRATION Has ADDENDA Patient Demographics Patient Name: ABHILASH GARAY Patient Primary Phone: [phone] Patient Primary Address: [address] [place] [address] Patient : 1955 Patient Age: 68 Caller/Recipient Relation to Patient: Self Administrative Administrative Note Reason: Other Administrative Note Comments: PATIENT requesting a call back from Pact Nurse in regards to aqua therapy consult and also a referral for Varicose veins number of file confirmed /yunior/ LEOBARDO LAMBERT VISN1 [facility] A[facility]A Signed: 12/31/2023 09:44 Receipt Acknowledged By: 12/31/2023 15:45 /yunior/ BREANNA BAKER RN-RONI REGISTERED NURSE 12/31/2023 16:00 /yunior/ EUGENIE SALVADOR LPN Licensed Practical Nurse 12/31/2023 ADDENDUM STATUS: COMPLETED Called and left voicemail requesting call back to pact at [phone] /BREANNA Gillespie RN-RONI REGISTERED NURSE Signed: 12/31/2023 15:46 01/08/2024 ADDENDUM STATUS: COMPLETED [place] is requesting a consult for evaluation and treatment of his varicose veings. Forwarding to pcp for review of request. /BREANNA Gillespie RN-RONI REGISTERED NURSE Signed: 01/08/2024 13:02 Receipt Acknowledged By: 01/12/2024 16:26 /yunior/ VESTA BLISS MD PRIMARY CARE PHYSICIAN 01/12/2024 ADDENDUM STATUS: COMPLETED Please inform the [place] I placed vascular consultation for varicose veins /oriana BLISS MD PRIMARY CARE PHYSICIAN Signed: 01/12/2024 16:26 Receipt Acknowledged By: * AWAITING SIGNATURE * RADHIKA GOMEZ ARELISHA [facility] [[email or web address]]Adan [facility]
--- OUTSIDE RECORDS SUMMARY | 2024-06-29 18:53 | XMS_ITS | Encounter Summary ---
Author Name [facility] [place] Address [address] [place] [address] Care Team Providers Care Foot Miter Operator Name Role Phone ABDIRAHMAN LAKE Primary [...] BASIC FAMIL Y Jun 24, 2009 112 [id number] [phone] ABHILASH GARAY PATIENT ANTHEM [place]BS [place] FEP PREFERRED PROVIDER ORGANIZAT ION (PPO) FEP BASIC FAM Jun 24, 2009 112 [id number] [phone] ABHILASH GARAY PATIENT ANTHEM BCBS [place] FEP PREFERRED PROVIDER ORGANIZAT ION (PPO) FEP BASIC FAM Jun 24, 2009 112 [id number] [phone] ABHILASH GARAY PATIENT ANTHEM [place] F[place] PREFERRED PROVIDER ORGANIZAT ION (PPO) FEP BASIC FAM Jun 24, 2009 112 [id number] [phone] ABHILASH GARAY PATIENT [place] FEP PREFERRED PROVIDER ORGANIZAT ION (PPO) FEP BASIC FAM Jun 24, 2009 112 [id number] [phone] RUBI GARAYNETH PATIENT BCBS [place] FEP PREFERRED PROVIDER ORGANIZAT ION (PPO) BASIC FAMIL Y Jun 24, 2009 112 [id number] [phone] RUBI GARAYNETH PATIENT [place] FEP PREFERRED PROVIDER ORGANIZAT ION (PPO) BASIC FAMIL Y Jun 24, 2009 112 [id number] [phone] RUBI GARAYNETH PATIENT [place] FEP PREFERRED PROVIDER ORGANIZAT ION (PPO) BASIC FAMIL Y Jun 24, 2009 112 [id number] [phone] RUBI GARAYNETH PATIENT [place] FEP DENTAL DENTAL INSURANCE BASIC Jul 12, 2009 DENTAL [id number] [phone] DEJAHDANIKARUBI ACEVESNETH PATIENT [place] FEP PREFERRED PROVIDER ORGANIZAT ION (PPO) BASIC FAMIL Y Jun 24, 2009 [id number] [phone] ABHILASH GARAY PATIENT [place] FEP ([id number]) PRESCRIPT ION FEPRX Jun 24, 2009 [id number] [phone] ABHILASH GARAY PATIENT [place] FEP BCBS PRESCRIPT ION CAREM ARK FEPRX PLAN Nov 21, 2021 [id number] ABHILASH GARAY PATIENT [place] FEPRX PLAN PRESCRIPT ION CAREM ARK FEPRX Nov 21, 2021 [id number] ABHILASH GARAY PATIENT [place]-F EP BCBS PRESCRIPT ION FEP CAREM ARK Nov 21, 2021 [id number] ABHILASH GARAY PATIENT [place]-F EP BCBS PRESCRIPT ION FEP Jun 23, 2010 [id number] RUBI GARAYNETH PATIENT MEDICARE ([facility]) MEDICARE () PART A Feb 22, 2020 PART A [id number] ABHILASH GARAY PATIENT MEDICARE (WNR) MEDICARE (M) PART A Feb 22, 2020 PART A [id number] ABHILASH GARAY PATIENT MEDICARE (WNR) MEDICARE (M) PART A Feb 22, 2020 PART A [id number] ABHILASH GARAY PATIENT MEDICARE (WNR) MEDICARE (M) PART A Feb 22, 2020 PART A [id number] ABHILASH GARAY PATIENT MEDICARE (WNR) MEDICARE (M) PART A Feb 22, 2020 PART A [id number] ABHILASH GARAY PATIENT Selected Encounter This section includes the information on record at [place] for the Encounter. Date/Time Encounter Type Encounter Description Reason Pro vider Source Jan 01, 2024 09:48 AM Outpatient Encounter ADMIN PAT ACTIVTIES (MASNONCT) IHE Encounter Template Text not used by [place] Plan of Treatment: Future Appointments (+ 6 months) and Future Tests (+/- 45 days) The Plan of Treatment section includes future care activities for the patient from [facility] [place] [facility] This section includes future appointments and future orders which are active, pending or scheduled. Future Appointments This section includes appointments that were scheduled to occur 6 months from the date of the Encounter, up to a maximum of 20 appointments. The data comes from all [place] treatment facilities. Appointment Date/Time Appointment Type Appointme nt Facility Name Jan 02, 2024 09:30 AM AMBULATORY - [facility] Jan 07, 2024 03:00 PM AMBULATORY - [facility] Jan 08, 2024 01:00 PM AMBULATORY - MEDICINE [facility] [place] [facility] Jan 09, 2024 11:00 AM AMBULATORY - MEDICINE [facility] [place] [facility] Jan 13, 2024 11:00 AM [place]ORY [place] [facility] [place] [facility] Jan 14, 2024 03:00 [facility] Jan [facility], [facility]24 03:00 PM [facility]AT[facility] Jan 28, 2024 11:00 AM [place] [facility] Jan 30, 2024 08:00 AM AMBULATORY - MEDICINE [facility] Feb 02, 2024 02:00 PM AM[facility]UL[facility]INE [facility] [place] [facility] Feb 04, 2024 11:00 AM AMBULATORY [facility] MEDICINE [facility] [place] [facility] Feb 09, 2024 11:30 AM AM[facility]ULATORY [facility]ICINE [facility] [place] [facility] Feb 09, 2024 02:00 PM AMBULATORY [facility]INE [facility] [place] [place] [facility] Feb 19, 2024 01:00 PM AMBULATORY [facility]ICINE [facility] [place] [facility] Feb 25, 2024 11:00 AM AMBULATORY - NONE [facility] [place] [facility] Mar 04, 2024 01:00 PM AMBULATORY - MEDICINE [facility] [place] [facility] Mar 09, 2024 01:00 PM AMBULATORY - MEDICINE [facility] [place] [facility] Mar 11, 2024 11:00 AM AMBULATORY - MEDICINE [facility] [place] [facility] Mar 15, 2024 12:15 PM AMBULATORY - MEDICINE [facility] [place] [facility] Mar 25, 2024 01:00 PM AM[place]ULATORY [place]INE [place] [facility] Social History: Smoking Status (Most current) and Tobacco Use (All prior to encounter date) This section includes the most current, and the historical, smoking and tobacco- related health factors from the [place] facility where the Encounter took place. Current Smoking Status This section includes the most current smoking, or tobacco-related health factor, from the [place] facility where the Encounter took place. Date/Time Current Smoking Status Comment Odalis casey Apr 08, 2023 09:12 AM VA-TOBACCO [facility] Tobacco Use History This section includes a history of the smoking, or tobacco-related health factors, that were collected on or before the date of the Encounter. The data comes from the [place] facility where the Encounter took place. Date/Time Smoking Status/Tobacco Use Comment Gilberto boston Aug 09, 2021 09:20 AM [facility]CO [facility] Encounter Notes: All associated encounter notes This section contains the clinical notes associated to the Encounter. Date/Time Encounter Note(s) Provider Source Jan 01, 2024 09:49 AM ADMINISTRATIVE NOTE: LOCAL TITLE: CCC: SCHEDULING ADMINISTRATION STANDARD TITLE: ADMINISTRATIVE NOTE DATE OF NOTE: JAN 01, 2024@09:49:03 ENTRY DATE: JAN 01, 2024@09:49:03 AUTHOR: BRIAN ARREDONDO COSIGNER: URGENCY: STATUS: COMPLETED Patient Demographics Patient Name: ABHILASH GARAY Patient Primary Phone: [phone] Patient Primary Address: [address] [place] [address] Patient : 1955 Patient Age: 68 Caller/Recipient Relation to Patient: Self Administrative Administrative Note Reason: Returned Call Administrative Note Comments: [place] returning missed call. [place] requesting call back. [place] can be reached at number on file. /es/ BRIAN ARREDONDO [employer] Signed: 01/01/2024 09:49 Receipt Acknowledged By: 01/05/2024 16:17 /es/ BREANNA BAKER RN-BC REGISTERED NURSE 01/01/2024 11:42 /es/ EUGENIE SALVADOR LPN Licensed Practical Nurse BRIAN ARREDONDO [place] [facility]
--- OUTSIDE RECORDS SUMMARY | 2024-06-29 18:53 | XMS_ITS | Encounter Summary ---
Author Name [place] Address [address] [place] [address] Care Team Providers Care Guest Service Aide Name Role Phone ABDIRAHMAN LAKE Primary Care [...] BASIC FAMIL Y Jun 24, 2009 [id number] [phone] ABHILASH GARAY PATIENT ANTHEM BCBS [place] FEP PREFERRED PROVIDER ORGANIZAT ION (PPO) FEP BASIC FAM Jun 24, 2009 112 [id number] [phone] ABHILASH GARAY PATIENT ANTHEM [place] F[place] PREFERRED PROVIDER ORGANIZAT ION (PPO) FEP BASIC FAM Jun 24, 2009 112 [id number] [phone] ABHILASH GARAY PATIENT [place] PREFERRED PROVIDER ORGANIZAT ION (PPO) FEP BASIC FAM Jun 24, 2009 112 [id number] [phone] ABHILASH GARAY PATIENT [place] PREFERRED PROVIDER ORGANIZAT ION (PPO) FEP BASIC FAM Jun 24, 2009 112 [id number] [phone] RUBI GARAYNETH PATIENT [place]BS [place] FEP PREFERRED PROVIDER ORGANIZAT ION (PPO) BASIC FAMIL Y Jun 24, 2009 [id number] RUBI GARAYNETH PATIENT [place] FEP PREFERRED PROVIDER ORGANIZAT ION (PPO) BASIC FAMIL Y Jun 24, 2009 [id number] RUBI GARAYNETH PATIENT [place] FEP PREFERRED PROVIDER ORGANIZAT ION (PPO) BASIC FAMIL Y Jun 24, 2009 [id number] RUBI GARAYNETH PATIENT [place] F[place] DENTAL DENTAL INSURANCE BASIC Jul 12, 2009 DENTAL [id number] DEJAHDANIKARUBI ACEVESNETH PATIENT [place] FEP PREFERRED PROVIDER ORGANIZAT ION (PPO) BASIC FAMIL Y Jun 24, 2009 [id number] [phone] ABHILASH GARAY PATIENT [employer] FEP ([id number]) PRESCRIPT ION FEPRX Jun 24, 2009 [id number] [phone] ABHILASH GARAY PATIENT [place] FEP BCBS PRESCRIPT ION CAREM ARK FEPRX PLAN Nov 21, 2021 [id number] ABHILASH GARAY PATIENT [employer] FEPRX PLAN PRESCRIPT ION CAREM ARK FEPRX Nov 21, 2021 [id number] [phone] ABHILASH GARAY PATIENT [employer]-F EP BCBS PRESCRIPT ION FEP CAREM ARK Nov 21, 2021 [id number] ABHILASH GARAY PATIENT [place]-F EP BCBS PRESCRIPT ION FEP Jun 23, 2010 [id number] RUBI GARAYNETH PATIENT MEDICARE ([facility]) MEDICARE () PART A Feb 22, 2020 PART A [id number] ABHILASH GARAY PATIENT MEDICARE (WNR) MEDICARE (M) PART A Feb 22, 2020 PART A [id number] ABHILASH GARYA PATIENT MEDICARE (WNR) MEDICARE (M) PART A Feb 22, 2020 PART A [id number] ABHILASH GARAY PATIENT MEDICARE (WNR) MEDICARE (M) PART A Feb 22, 2020 PART A [id number] [id number] [id number] ABHILASH GARAY PATIENT MEDICARE (WNR) MEDICARE (M) PART A Feb 22, 2020 PART A [id number] ABHILASH GARAY PATIENT Selected Encounter This section includes the information on record at [place] for the Encounter. Date/Time Encounter Type Encounter Description Reason Pro vider Source Jan 05, 2024 10:09 AM Outpatient Encounter ADMIN PAT ACTIVTIES (MASNONCT) IHE Encounter Template Text not used by [place] Plan of Treatment: Future Appointments (+ 6 months) and Future Tests (+/- 45 days) The Plan of Treatment section includes future care activities for the patient from all [place] treatmentfacilities. This section includes future appointments and future orders which are active, pending or scheduled. Future Appointments This section includes appointments that were scheduled to occur 6 months from the date of the Encounter, up to a maximum of 20 appointments. The data comes from all [place] treatment facilities. Appointment Date/Time Appointment Type Appointme nt Facility Name Jan 07, 2024 03:00 PM AMBULATORY - REHAB [facility] Jan 08, 2024 01:00 PM AMBULATORY - MEDICINE [facility] [place] [facility] Jan 09, 2024 11:00 AM AMBULATORY - MEDICINE [facility] [place] [facility] Jan 13, 2024 11:00 AM AMBULATORY - MEDICINE [facility] [place] [facility] Jan 14, 2024 03:00 PM AMBULATORY - REHAB [facility] Jan 21, 2024 03:00 PM AMBULATORY - REHAB [facility] Jan 28, 2024 11:00 AM AMBULATORY - MEDICINE [facility] [place] [facility] Jan 30, 2024 08:00 AM AMBULATORY - MEDICINE [facility] Feb 02, 2024 02:00 PM AMBULATORY [facility]INE [facility] [place] [facility] Feb 04, 2024 11:00 AM AMBULATORY - [facility]ICINE [facility] [place] [facility] Feb 09, 2024 11:30 AM AMBULATORY - MEDICINE [facility] [place] [facility] Feb 09, 2024 02:00 PM AMBULATORY - MEDICINE [facility] [place] [facility] Feb 19, 2024 01:00 PM AMBULATORY - MEDICINE [facility] [place] [facility] Feb 25, 2024 11:00 AM AMBULATORY - NONE [facility] [place] [facility] Mar 04, 2024 01:00 PM AMBULATORY - MEDICINE [facility] [place] [facility] Mar 09, 2024 01:00 PM AMBULATORY - MEDICINE [facility] [place] [facility] Mar 11, 2024 11:00 AM AMBULATORY - MEDICINE [facility] [place] [facility] Mar 15, 2024 12:15 PM AMBULATORY - MEDICINE [facility] [place] [facility] Mar 25, 2024 01:00 PM AMBULATORY - MEDICINE [facility] [place] [facility] Apr 06, 2024 10:30 AM AMBULATORY - MEDICINE [facility] Social History: Smoking Status (Most current) and Tobacco Use (All prior to encounter date) This section includes the most current, and the historical, smoking and tobacco- related health factors from the [place] facility where the Encounter took place. Current Smoking Status This section includes the most current smoking, or tobacco-related health factor, from the [place] facility where the Encounter took place. Date/Time Current Smoking Status Comment Odalis casey Apr 08, 2023 09:12 AM VA-TOBACCO NEVER USED [facility] Tobacco Use History This section includes a history of the smoking, or tobacco-related health factors, that were collected on or before the date of the Encounter. The data comes from the [place] facility where the Encounter took place. Date/Time Smoking Status/Tobacco Use Comment Gilberto boston Aug 09, 2021 09:20 AM [facility]ACCO [facility] Encounter Notes: All associated encounter notes This section contains the clinical notes associated to the Encounter. Date/Time Encounter Note(s) Provider Source Jan 05, 2024 10:09 AM ADMINISTRATIVE NOTE: LOCAL TITLE: CCC: SCHEDULING ADMINISTRATION STANDARD TITLE: ADMINISTRATIVE NOTE DATE OF NOTE: JAN 05, 2024@10:09:39 ENTRY DATE: JAN 05, 2024@10:09:40 AUTHOR: QUIANA HOWARD COSIGNER: URGENCY: STATUS: COMPLETED CCC: SCHEDULING ADMINISTRATION Has ADDENDA Patient Demographics Patient Name: ABHILASH GARAY Patient Primary Phone: [phone] Patient Primary [address]: [address] [place] [id number] Patient : 1955 Patient Age: 68 Caller/Recipient Relation to Patient: Self Administrative Administrative Note Reason: Returned Call Administrative Note Comments: RETURNED CALL. HIS CONTACT NUMBER IS [phone]. /yunior/ QUIANA HOWARD VISN1 [facility] MSA Signed: 01/05/2024 10:09 Receipt Acknowledged By: 01/05/2024 16:17 /yunior/ BREANNA BAKER REGISTERED NURSE 01/06/2024 07:56 /yunior/ EUGENIE SALVADOR LPN Licensed Practical Nurse 01/05/2024 ADDENDUM STATUS: COMPLETED Called [place] and reviewed available community care providers that offer aquatic therapy and [facility] requested that author mail him the list to review. Author placed list in mail to [facility] home for review and feedback. also inquired whether the [facility] could help transport him to one of these facilities and author directed [facility] to contact VA eligibility dept to discuss transportation benefits. /yunior/ BREANNA BAKER REGISTERED NURSE Signed: 01/06/2024 16:07 QUIANA HOWARD [facility]
--- OUTSIDE RECORDS SUMMARY | 2024-06-29 18:54 | XMS_ITS | Encounter Summary ---
Author Name [facility] [place] Address [address] [place] [address] Care Team Providers Care Belt Notcher Name Role Phone ABDIRAHMAN LAKE Primary Care [...] BASIC FAMIL Y Jun 24, 2009 [id number] [phone] ABHILASH GARAY PATIENT ANTHEM BCBS [place] FEP PREFERRED PROVIDER ORGANIZAT ION (PPO) FEP BASIC FAM Jun 24, 2009 [id number] [phone] ABHILASH GARAY PATIENT ANTHEM [place]BS [place] FEP PREFERRED PROVIDER ORGANIZAT ION (PPO) FEP BASIC FAM Jun 24, 2009 [id number] [phone] ABHILASH GARAY PATIENT [place]THE[place] PREFERRED PROVIDER ORGANIZAT ION (PPO) FEP BASIC FAM Jun 24, 2009 112 [id number] [phone] ABHILASH GARAY PATIENT [place] PREFERRED PROVIDER ORGANIZAT ION (PPO) FEP BASIC FAM Jun 24, 2009 112 [id number] [phone] RUBI GARAYNETH PATIENT [place]BS [place] FEP PREFERRED PROVIDER ORGANIZAT ION (PPO) BASIC FAMIL Y Jun 24, 2009 112 [id number] [phone] RUBI GARAYNETH PATIENT [place] FEP PREFERRED PROVIDER ORGANIZAT ION (PPO) BASIC FAMIL Y Jun 24, 2009 [id number] RUBI GARAYNETH PATIENT [place] FEP PREFERRED PROVIDER ORGANIZAT ION (PPO) BASIC FAMIL Y Jun 24, 2009 [id number] RUBI GARAYNETH PATIENT [place] F[place] DENTAL DENTAL INSURANCE BASIC Jul 12, 2009 DENTAL [id number] [phone] DEJAHDANIKARUBI ACEVESNETH PATIENT [place] FEP PREFERRED PROVIDER ORGANIZAT ION (PPO) BASIC FAMIL Y Jun 24, 2009 [id number] [phone] ABHILASH GARAY PATIENT [employer] FEP ([id number]) PRESCRIPT ION FEPRX Jun 24, 2009 [id number] [phone] ABHILASH GARAY PATIENT [place] FEP BCBS PRESCRIPT ION CAREM ARK FEPRX PLAN Nov 21, 2021 [id number] ABHILASH GARAY PATIENT [employer] FEPRX PLAN PRESCRIPT ION CAREM ARK FEPRX Nov 21, 2021 [id number] ABHILASH GARAY PATIENT [employer]-F EP BCBS PRESCRIPT ION FEP CAREM ARK Nov 21, 2021 [id number] ABHILASH GARAY PATIENT [place]-F EP BCBS PRESCRIPT ION FEP Jun 23, 2010 [id number] RUBI GARAYNETH PATIENT MEDICARE ([facility]) MEDICARE () PART A Feb 22, 2020 PART A [id number] ABHILASH GARAY PATIENT MEDICARE (WNR) MEDICARE (M) PART A Feb 22, 2020 PART A [id number] ABHILASH GARAY PATIENT MEDICARE (WNR) MEDICARE (M) PART A Feb 22, 2020 PART A [id number] ABHILASH GARAY PATIENT MEDICARE (WNR) MEDICARE (M) PART A Feb 22, 2020 PART A [id number] ABHILASH GARAY PATIENT MEDICARE (WNR) MEDICARE (M) PART A Feb 22, 2020 PART A [id number] [id number] ABHILASH GARAY PATIENT Selected Encounter This section includes the information on record at [place] for the Encounter. Date/Time Encounter Type Encounter Description Reason Pro vider Source Jan 06, 2024 09:47 AM Outpatient Encounter ADMIN PAT ACTIVTIES (MASNONCT) IHE Encounter Template Text not used by [place] Plan of Treatment: Future Appointments (+ 6 [...] 07, 2024 03:00 PM AMBULATORY - REHAB [facility] Jan 08, 2024 01:00 PM AMBULATORY - MEDICINE [facility] [place] [facility] Jan 09, 2024 11:00 AM AMBULATORY - MEDICINE [facility] [place] [facility] Jan 13, 2024 11:00 AM AMBULATORY - MEDICINE [facility] [place] [facility] Jan 14, 2024 03:00 PM AMBULATORY - REHAB [facility] Jan 21, 2024 03:00 PM AMBULATORY - REHAB [facility] Jan 28, 2024 11:00 AM AMBULATORY - MEDICINE [place] [facility] [place] [facility] Jan 30, 2024 08:00 AM AMBULATORY - MEDICINE [facility] Feb 02, 2024 02:00 PM AMBULATORY - MEDICINE [facility] [place] [facility] Feb 04, 2024 11:00 AM AMBULATORY - MEDICINE [facility] [place] [facility] Feb 09, 2024 11:30 AM AMBULATORY - MEDICINE [facility] [place] [facility] Feb 09, 2024 02:00 PM AMBULATORY - MEDICINE [facility] [place] [facility] Feb 19, 2024 01:00 PM AMBULATORY - MEDICINE [facility] [place] [facility] Feb 25, 2024 11:00 AM AMBULATORY - NONE [facility] [place] [facility] Mar 04, 2024 01:00 PM AMBULATORY - MEDICINE [facility] [place] [facility] Mar 09, 2024 01:00 PM AMBULATORY - MEDICINE [facility] [place] [facility] Mar 11, 2024 11:00 AM AMBULATORY - MEDICINE [facility] [place] [facility] Mar 15, 2024 12:15 PM AMBULATORY - MEDICINE [facility] [place] [facility] Mar 25, 2024 01:00 PM AMBULATORY - MEDICINE [facility] [place] [facility] Apr 06, 2024 10:30 AM AMBULATORY - MEDICINE [facility] Social History: Smoking Status (Most current) [...] 08, 2023 09:12 AM VA-TOBACCO NEVER USED [facility] Tobacco Use History This section includes a history of the smoking, or tobacco-related health factors, that were collected on or before the date of the Encounter. The data comes from the [place] facility where the Encounter took place. Date/Time Smoking Status/Tobacco Use Comment Gilberto [place]oston Aug 09, 2021 09:20 AM VA-TOBACCO NEVER USED [facility] WSN [facility] Encounter Notes: All associated encounter notes This section contains the clinical notes associated to the Encounter. Date/Time Encounter Note(s) Provider Source Jan 06, 2024 09:48 AM ADMINISTRATIVE NOTE: LOCAL TITLE: CCC: SCHEDULING ADMINISTRATION STANDARD TITLE: ADMINISTRATIVE NOTE DATE OF NOTE: JAN 06, 2024@09:48 ENTRY DATE: JAN 06, 2024@09:48:01 AUTHOR: RADHIKA GALE COSIGNER: URGENCY: STATUS: COMPLETED Patient Demographics Patient Name: ABHILASH GARAY Patient Primary Phone: [phone] Patient Primary Address: [address] [place] [address] Patient : 1955 Patient Age: 68 Caller/Recipient Relation to Patient: Self Administrative Administrative Note Reason: Returned Call Administrative Note Comments: Lerona is returning call to nurse from 12/30 about getting a consult for his Varicose veins. declined the need for nurse triage at this time. Please call the to follow up @ [phone] /yunior/ RADHIKA GALE VISAdan 1 [facility] AMSA Signed: 01/06/2024 09:48 Receipt Acknowledged By: 01/08/2024 13:01 /es/ BREANNA BAKER RN-BC REGISTERED NURSE 01/08/2024 15:31 /yunior/ EUGENIE SALVADOR LPN Licensed Practical Nurse RADHIKA GALE [place] CNTL [facility]
--- OUTSIDE RECORDS SUMMARY | 2024-06-29 18:54 | XMS_ITS | Encounter Summary ---
Author Name [facility] [place] Organization [facility] [place] [facility] [place] Address [address] [place] [address] Care Team Providers Care Museum Guide Name Role Phone ABDIRAHMAN LAKE Primary Care [...] BASIC FAMIL Y Jun 24, 2009 112 [id number] [phone] ABHILASH GARAY PATIENT ANTHEM BCBS [place] FEP PREFERRED PROVIDER ORGANIZAT ION (PPO) FEP BASIC FAM Jun 24, 2009 112 [id number] [phone] ABHILASH GARAY PATIENT ANTHEM BCBS [place] FEP PREFERRED PROVIDER ORGANIZAT ION (PPO) FEP BASIC FAM Jun 24, 2009 112 [id number] [phone] ABHILASH GARAY PATIENT ANTHEM [place]BS [place] FEP PREFERRED PROVIDER ORGANIZAT ION (PPO) FEP BASIC FAM Jun 24, 2009 112 [id number] [phone] ABHILASH GARAY PATIENT [place] FEP PREFERRED PROVIDER ORGANIZAT ION (PPO) FEP BASIC FAM Jun 24, 2009 112 [id number] [phone] ABHILASH GARAY PATIENT BCBS [place] FEP PREFERRED PROVIDER ORGANIZAT ION (PPO) BASIC FAMIL Y Jun 24, 2009 [id number] ABHILASH GARAY PATIENT [place] PREFERRED PROVIDER ORGANIZAT ION (PPO) BASIC FAMIL Y Jun 24, 2009 [id number] ABHILASH GARAY PATIENT [place] FEP PREFERRED PROVIDER ORGANIZAT ION (PPO) BASIC FAMIL Y Jun 24, 2009 [id number] ABHILASH GARAY PATIENT [place] FEP DENTAL DENTAL INSURANCE BASIC Jul 12, 2009 DENTAL [id number] ABHILASH GARAY PATIENT [place] FEP PREFERRED PROVIDER ORGANIZAT ION (PPO) BASIC FAMIL Y Jun 24, 2009 [id number] ABHILASH GARAY PATIENT [employer] FEP ([id number]) PRESCRIPT ION FEPRX Jun 24, 2009 [id number] [phone] ABHILASH GARAY PATIENT [place] FEP BCBS PRESCRIPT ION CAREM ARK FEPRX PLAN Nov 21, 2021 [id number] ABHILASH GARAY PATIENT [place] FEPRX PLAN PRESCRIPT ION CAREM ARK FEPRX Nov 21, 2021 [id number] ABHILASH GARAY PATIENT [place]-F EP BCBS PRESCRIPT ION FEP CAREM ARK Nov 21, 2021 [id number] ABHILASH GARAY PATIENT [place]-F EP BCBS PRESCRIPT ION FEP Jun 23, 2010 [id number] ABHILASH GARAY PATIENT MEDICARE (WN) MEDICARE () PART A Feb 22, 2020 PART A [id number] ABHILASH GARAY PATIENT MEDICARE ([facility]) MEDICARE () PART A Feb 22, 2020 PART A [id number] ABHILASH GARAY PATIENT MEDICARE (WNR) MEDICARE (M) PART A Feb 22, 2020 PART A [id number] ABHILASH GARAY PATIENT MEDICARE (WNR) MEDICARE (M) PART A Feb 22, 2020 PART A [id number] [phone] [id number] ABHILASH GARAY PATIENT MEDICARE (WNR) MEDICARE (M) PART A Feb 22, 2020 PART A [id number] ABHILASH GARAY PATIENT Selected Encounter This section includes the information on record at OR for the Encounter. Date/Time Encounter Type Encounter Description Reason Pro vider Source Dec 31, 2023 12:00 AM Outpatient Encounter COMMUNITY CARE CONSULT IHE Encounter Template Text not used by [place] Plan of Treatment: Future Appointments (+ 6 months) and Future Tests (+/- 45 days) The Plan of Treatment section includes future care activities for the [facility]. This section includes future appointments [...] 01, 2024 01:00 PM AMBULATORY - MEDICINE [facility] [facility] Jan 02, 2024 09:30 AM AMBULATORY - REHAB [facility] Jan 07, 2024 03:00 PM AMBULATORY - RE[facility] Jan 08, 2024 01:00 PM AMBULATORY - MEDICINE [facility] [place] [facility] Jan 09, 2024 11:00 AM AMBULATORY - MEDICINE [facility] [place] [facility] Jan 13, 2024 11:00 AM AMBULATORY - MEDICINE [facility] [place] [facility] Jan 14, 2024 03:00 PM AMBULATORY [place] Jan 21, 2024 03:00 PM AMBULATORY - [place] [facility] [place] Jan 28, 2024 11:00 AM AMBULATORY - MEDICINE [place] [facility] Jan 30, 2024 08:00 AM [place]ORY [place] Feb 02, 2024 02:00 PM [facility] [place] [facility] Feb 04, 2024 11:00 AM AM[facility]ATORY [facility] [place] [facility] Feb 09, 2024 11:30 AM AM[facility]ULATORY [facility]INE [facility] [place] [facility] Feb 09, 2024 02:00 PM [facility]ATORY [facility]INE [facility] [place] [facility] Feb 19, 2024 01:00 PM AM[facility]ULATORY [facility]INE [facility] [place] [facility] Feb 25, 2024 11:00 AM AMBULATORY - NONE [facility] [place] [facility] Mar 04, 2024 01:00 PM AM[facility]ULATORY [facility]ICINE [facility] [place] [facility] Mar 09, 2024 01:00 PM AM[facility]ULATORY [facility]ICINE [facility] [place] [facility] Mar 11, 2024 11:00 AM AMBULATORY - MEDICINE [facility] [place] [facility] Mar 15, 2024 12:15 PM AMBULATORY - MEDICINE [place] [place] [facility] Social History: Smoking Status (Most [...] 2023 09:12 AM [place]-TOBACCO NEVER USED [facility] Tobacco Use History This section includes a history of the smoking, or tobacco-related health factors, that were collected on or before the date of the Encounter. The data comes from the [place] facility where the Encounter took place. Date/Time Smoking Status/Tobacco Use Comment F acjaved Aug 09, 2021 09:20 AM [facility] Encounter Notes: All associated encounter notes This section contains the clinical notes associated to the Encounter. Date/Time Encounter Note(s) Provider Source Dec 31, 2023 12:00 AM NONVA CONSULT: LOCAL TITLE: COMMUNITY CARE-CONSULT RESULT NOTE STANDARD TITLE: NONVA CONSULT DATE OF NOTE: DEC 31, 2023 ENTRY DATE: JAN 07, 2024@07:29:01 AUTHOR: JORDAN TANNER MA EXP COSIGNER: URGENCY: STATUS: COMPLETED VistA Imaging - Scanned Document SCANNED DOCUMENT SIGNATURE NOT REQUIRED Electronically Filed: 01/07/2024 by: JORDAN TANNER MEDICAL RECORDS SECRETARY JORDAN TANNER [place] [facility]
--- OUTSIDE RECORDS SUMMARY | 2024-06-29 18:54 | XMS_ITS | Encounter Summary ---
Author Name [facility] [place] Address [address] [place] [address] Care Team Providers Care Recreational Facilities Motel Manager Name Role Phone ABDIRAHMAN LAKE Primary Care [...] BASIC FAMIL Y Jun 24, 2009 112 [id number] [phone] MARIO GARAY PATIENT ANTHEM BCBS [place] F[place] PREFERRED PROVIDER ORGANIZAT ION (PPO) FEP BASIC FAM Jun 24, 2009 [id number] [phone] MARIO GARAY PATIENT ANTHEM BCBS [place] FEP PREFERRED PROVIDER ORGANIZAT ION (PPO) FEP BASIC FAM Jun 24, 2009 112 [id number] [phone] MARIO GARAY PATIENT [place] PREFERRED PROVIDER ORGANIZAT ION (PPO) FEP BASIC FAM Jun 24, 2009 112 [id number] [phone] MARIO GARAY PATIENT [place] FEP PREFERRED PROVIDER ORGANIZAT ION (PPO) FEP BASIC FAM Jun 24, 2009 112 [id number] [phone] MARIO GARAY PATIENT [place]BS [place] FEP PREFERRED PROVIDER ORGANIZAT ION (PPO) BASIC FAMIL Y Jun 24, 2009 [id number] [phone] MARIO GARAY PATIENT [place] FEP PREFERRED PROVIDER ORGANIZAT ION (PPO) BASIC FAMIL Y Jun 24, 2009 [id number] MARIO GARAY PATIENT [place] F[place] PREFERRED PROVIDER ORGANIZAT ION (PPO) BASIC FAMIL Y Jun 24, 2009 112 [id number] [phone] MARIO GARAY PATIENT [place] F[place] DENTAL DENTAL INSURANCE BASIC Jul 12, 2009 DENTAL [id number] MARIO GARAY PATIENT [place] FEP PREFERRED PROVIDER ORGANIZAT ION (PPO) BASIC FAMIL Y Jun 24, 2009 [id number] MARIO GARAY PATIENT [employer] FEP ([id number]) PRESCRIPT ION FEPRX Jun 24, 2009 [id number] [phone] MARIO GARAY PATIENT [place] FEP BCBS PRESCRIPT ION CAREM ARK FEPRX PLAN Nov 21, 2021 [id number] MARIO GARAY PATIENT [place] FEPRX PLAN PRESCRIPT ION CAREM ARK FEPRX Nov 21, 2021 [id number] MARIO GARAY PATIENT [place]-F EP BCBS PRESCRIPT ION FEP CAREM ARK Nov 21, 2021 [id number] MARIO GARAY PATIENT [place]-F EP BCBS PRESCRIPT ION FEP Jun 23, 2010 [id number] RUBI GARAYNETH PATIENT MEDICARE (WNR) MEDICARE (M) PART A Feb 22, 2020 PART A [id number] [phone] MARIO GARAY PATIENT MEDICARE (WNR) MEDICARE (M) PART A Feb 22, 2020 PART A [id number] [facility] [phone] MARIO GARAY PATIENT MEDICARE (WNR) MEDICARE (M) PART A Feb 22, 2020 PART A [id number] MARIO GARAY PATIENT MEDICARE (WNR) MEDICARE (M) PART A Feb 22, 2020 PART A [id number] [facility] MARIO GARAY PATIENT MEDICARE (WNR) MEDICARE (M) PART A Feb 22, 2020 PART A [id number] MARIO GARAY PATIENT Selected Encounter This section includes the information on record at [place] for the Encounter. Date/Time Encounter Type Encounter Description Reason Provider Source Jan 07, 2024 03:00 PM THERAPEUTIC EXERCISES PHYSICAL THERAPY ICD-10-CM M41.9 Scoliosis, unspecified JESSICA MEDRANO Fran Encounter Template Text not used by [place] Assessments - Encounter Diagnoses This section includes the primary and secondary diagnoses documented for the Encounter. Date/Time Primary/Secondary Diagnosis Diagnosis Name Provider Source Jan 07, 2024 03:33 PM PRIMARY Scoliosis, unspecified HERO MEDRANO Plan of [...] Appointment Type Appointme nt Facility Name Jan 08, 2024 01:00 PM AMBULATORY - MEDICINE [facility] [place] [facility] Jan 09, 2024 11:00 AM AMBULATORY - MEDICINE [facility] [place] [facility] Jan 13, 2024 11:00 AM AMBULATORY - MEDICINE [facility] [place] [facility] Jan 14, 2024 03:00 PM AMBULATORY - REHAB [facility] Jan 21, 2024 03:00 PM AMBULATORY - REHAB [facility] Jan 28, 2024 11:00 AM AMBULATORY - MEDICINE [facility] [place] [facility] Jan 30, 2024 08:00 AM [facility] Feb 02, 2024 02:00 PM AM[facility]ATORY [facility]INE [facility] [place] [facility] Feb 04, 2024 11:00 AM AM[facility]ULATORY [facility]INE [facility] [place] [facility] Feb 09, 2024 11:30 AM AM[facility]ULATORY [facility] [place] [facility] Feb 09, 2024 02:00 PM AM[facility]ULATORY [facility] [place] [facility] Feb 19, 2024 01:00 PM AMBULATORY - [facility]INE [facility] [place] [facility] Feb 25, 2024 11:00 AM AMBULATORY - NONE [facility] [place] [facility] Mar 04, 2024 01:00 PM AMBULATORY [facility]ICINE [facility] [place] [facility] Mar 09, 2024 01:00 PM AMBULATORY [facility]INE [facility] [place] [facility] Mar 11, 2024 11:00 AM AM[facility]ULATORY [facility]INE [facility] [place] [facility] Mar 15, 2024 12:15 PM AMBULATORY [facility]INE [facility] [place] [facility] Mar 25, 2024 01:00 PM AM[facility]ULATORY [facility]INE [facility] [place] [facility] Apr 06, 2024 10:30 AM AMBULATORY - MEDICINE [facility] Apr 07, 2024 03:30 PM [facility]UL[facility]ORY [facility] NONE [facility] [place] [facility] Social History: Smoking Status (Most current) [...] Odalis casey Aug 18, 2020 10:00 AM [place]-TOBACCO NEVER USED [facility] Tobacco Use History This section includes a history of the smoking, or tobacco-related health factors, that were collected on or before the date of the Encounter. The data comes from the [place] facility where the Encounter took place. Date/Time Smoking Status/Tobacco Use Comment F acjaved Dec 15, 2018 12:14 PM VA-TOBACCO NEVER USED [facility] Jun 11, 2017 04:15 PM LIFETIME NON-TOBACCO USER [facility] Jan 01, 2016 11:12 AM LIFETIME NON-TOBACCO USER [facility] Jan 16, 2005 08:54 AM LIFETIME NON-SMOKER [facility] Nov 29, 2003 08:05 AM LIFETIME NON-SMOKER [facility] Jan 07, 2001 08:33 AM LIFETIME NON-SMOKER [facility] Encounter Notes: All associated encounter notes This section contains the clinical notes associated to the Encounter. Date/Time Encounter Note(s) Provider Source Jan 14, 2024 08:38 AM ADDENDUM: LOCAL TITLE: Addendum STANDARD TITLE: ADDENDUM DATE OF NOTE: JAN 14, 2024@08:38:56 ENTRY DATE: JAN 14, 2024@08:38:57 AUTHOR: HERO MEDRANO EXP COSIGNER: URGENCY: STATUS: COMPLETED patient expresses interest in the in person gerofit program offered at [facility]. If in agreement, please place consult for this program. /es/ HERO MEDRANO PT, DPT PHYSICAL THERAPIST Signed: 01/14/2024 08:39 Receipt Acknowledged By: 01/14/2024 09:54 /es/ BREANNA BAKER RN-BC REGISTERED NURSE 01/15/2024 15:35 /es/ VESTA BLISS MD PRIMARY CARE PHYSICIAN ====== --- Original Document --- 01/07/24 PHYSICAL THERAPY: Initial Evaluation date: 12/17/23 Progress Note Date: 01/16/24 Treatment #: 1 Treatment time: 30 Diagnosis:Scoliosis, unspecified(ICD-10-CM M41.9) Provider:VESTA BLISS PT Treatment Precautions: Patient identified by full name and date of goes by Rubi Martin SUBJECTIVE: patient states their knees and back are sore today. OBJECTIVE: Therapeutic Exercise: Mins: 26 nustep 8mins Step ups 2x15 standing hip abduction orange band [id number] abdominal curl with ball 10 abdominal press into ball 10reps SKTC 2x30s Sidelying thoracic rotation 10reps sidelying clamshell 15 orange band cat cow 10reps Manual therapy: Mins: Neuro re-ed: Mins: Other: Mins: Modalities: Mins: [] contraindication screen completed prior to modality [] skin intact pre/post modality Access Code: [email or web address] URL: [email or web address] Date: 01/07/2024 Prepared by: Hero Medrano Exercises - Step Up - 1 x daily - 3-4 x weekly - 2-3 sets - 10-15 reps - Seated Hamstring Stretch - 1 x daily - 7 x weekly - 2-3 sets - 30 hold - Standing Hip Abduction with Resistance at Ankles and Counter Support - 1 x daily - 3-4 x weekly - 2-3 sets - 10-15 reps - Clamshell with Resistance - 1 x daily - 3-4 x weekly - 2-3 sets - 10-15 reps - Sidelying Thoracic and Shoulder Rotation - 1 x daily - 7 x weekly - 2 sets - 10 reps - Cat Cow - 1 x daily - 7 x weekly - 2 sets - 10 reps PATIENT EDUCATION: Mins: 2 Patient education was provided for all aspects of care during this clinical encounter. Provided updated written HEP to patient reviewing proper form sets reps and frequency and safety precautions with patient verbalizing and demonstrating good understanding during visit. ASSESSMENT: Patient seen for routine follow up. No change in symptoms since eval. Provided isntruction through progressions in thoracolumbar ROM exercises, as well as abdominal and gluteal strengthening. Patient with poor tolerance to abdominal exercises with ball so these were discontinued. Provided updated written HEP for carryover at home with the exercises patient was most successful with. PLAN: Progress as tolerated flexion based therex [...] HERO MEDRANO PT, DPT PHYSICAL THERAPIST Signed: 01/07/2024 15:33 HERO MEDRANO [facility] Jan 07, 2024 02:55 PM PHYSICAL THERAPY N OTE: LOCAL TITLE: PHYSICAL THERAPY STANDARD TITLE: PHYSICAL THERAPY NOTE DATE OF NOTE: JAN 07, 2024@14:55 ENTRY DATE: JAN 07, 2024@14:55:12 AUTHOR: HERO MEDRANO EXP COSIGNER: URGENCY: STATUS: COMPLETED PHYSICAL THERAPY Has ADDENDA Initial Evaluation date: 12/17/23 Progress Note Date: 01/16/24 Treatment #: 1 Treatment time: 30 Diagnosis:Scoliosis, unspecified(ICD-10-CM M41.9) Provider:VESTA BLISS PT Treatment Precautions: Patient identified by full name and date of goes by Rubi or Mario SUBJECTIVE: patient states their knees and back are sore today. OBJECTIVE: Therapeutic Exercise: Mins: 26 nustep 8mins Step ups 2x15 standing hip abduction orange band [id number] abdominal curl with ball 10 abdominal press into ball 10reps SKTC 2x30s Sidelying thoracic rotation 10reps sidelying clamshell 15 orange band cat cow 10reps Manual therapy: Mins: Neuro re-ed: Mins: Other: Mins: Modalities: Mins: [] contraindication screen completed prior to modality [] skin intact pre/post modality Access Code: [email or web address] URL: [email or web address] Date: 01/07/2024 Prepared by: Hero Medrano Exercises - Step Up - 1 x daily - 3-4 x weekly - 2-3 sets - 10-15 reps - Seated Hamstring Stretch - 1 x daily - 7 x weekly - 2-3 sets - 30 hold - Standing Hip Abduction with Resistance at Ankles and Counter Support - 1 x daily - 3-4 x weekly - 2-3 sets - 10-15 reps - Clamshell with Resistance - 1 x daily - 3-4 x weekly - 2-3 sets - 10-15 reps - Sidelying Thoracic and Shoulder Rotation - 1 x daily - 7 x weekly - 2 sets - 10 reps - Cat Cow - 1 x daily - 7 x weekly - 2 sets - 10 reps PATIENT EDUCATION: Mins: 2 Patient education was provided for all aspects of care during this clinical encounter. Provided updated written HEP to patient reviewing proper form sets reps and frequency and safety precautions with patient verbalizing and demonstrating good understanding during visit. ASSESSMENT: Patient seen for routine follow up. No change in symptoms since eval. Provided isntruction through progressions in thoracolumbar ROM exercises, as well as abdominal and gluteal strengthening. Patient with poor tolerance to abdominal exercises with ball so these were discontinued. Provided updated written HEP for carryover at home with the exercises patient was most successful with. PLAN: Progress as tolerated flexion based therex [...] []Heat/Ice []Estim/Tens []Mechanical traction []K-tape [] Biofreeze /yunior/ HERO MEDRANO PT, DPT PHYSICAL THERAPIST Signed: 01/07/2024 15:33 01/14/2024 ADDENDUM STATUS: COMPLETED patient expresses interest in the in person gerofit program offered at [facility]. If in agreement, please place consult for this program. /yunior/ HERO MEDRANO PT, DPT PHYSICAL THERAPIST Signed: 01/14/2024 08:39 Receipt Acknowledged By: * AWAITING SIGNATURE * RADHIKA GOMEZ * AWAITING SIGNATURE * VESTA BLISS,HERO CABRAL
--- OUTSIDE RECORDS SUMMARY | 2024-06-29 18:54 | XMS_ITS | Encounter Summary ---
Author Name [facility] [place] [facility] [place] [facility] [place] Address [address] [place] [address] Care Team Providers Care Medical Insurance Claims Specialist Name Role Phone ABDIRAHMAN LAKE Primary [...] BASIC FAMIL Y Jun 24, 2009 112 [id number] [phone] ABHILASH GARAY PATIENT [place]BS [place] F[place] PREFERRED PROVIDER ORGANIZAT ION (PPO) FEP BASIC FAM Jun 24, 2009 112 [id number] [phone] ABHILASH GARAY PATIENT ANTHEM [place]BS [place] F[place] PREFERRED PROVIDER ORGANIZAT ION (PPO) FEP BASIC FAM Jun 24, 2009 112 [id number] [phone] ABHILASH GARAY PATIENT [place] PREFERRED PROVIDER ORGANIZAT ION (PPO) FEP BASIC FAM Jun 24, 2009 112 [id number] [phone] ABHILASH GARAY PATIENT [place] F[place] PREFERRED PROVIDER ORGANIZAT ION (PPO) FEP BASIC FAM Jun 24, 2009 112 [id number] [phone] RUBI GARAYNETH PATIENT [place]BS [place] F[place] PREFERRED PROVIDER ORGANIZAT ION (PPO) BASIC FAMIL Y Jun 24, 2009 112 [id number] [phone] RUBI GARAYNETH PATIENT [place] PREFERRED PROVIDER ORGANIZAT ION (PPO) BASIC FAMIL Y Jun 24, 2009 112 [id number] RUBI GARAYNETH PATIENT [place] FEP PREFERRED PROVIDER ORGANIZAT ION (PPO) BASIC FAMIL Y Jun 24, 2009 [id number] RUBI GARAYNETH PATIENT [place] FEP DENTAL DENTAL INSURANCE BASIC Jul 12, 2009 DENTAL [id number] DEJAHDANIKARUBI ACEVESNETH PATIENT [place] F[place] PREFERRED PROVIDER ORGANIZAT ION (PPO) BASIC FAMIL Y Jun 24, 2009 112 [id number] [phone] ABHILASH GARAY PATIENT [place] FEP ([id number]) PRESCRIPT ION FEPRX Jun 24, 2009 [id number] [phone] ABHILASH GARAY PATIENT [place] FEP BCBS PRESCRIPT ION CAREM ARK FEPRX PLAN Nov 21, 2021 [id number] ABHILASH GARAY PATIENT [place] FEPRX PLAN PRESCRIPT ION CAREM ARK FEPRX Nov 21, 2021 [id number] ABHILASH GARAY PATIENT [place]-F EP BCBS PRESCRIPT ION FEP CAREM ARK Nov 21, 2021 [id number] ABHILASH GARAY PATIENT [place]-F EP BCBS PRESCRIPT ION FEP Jun 23, 2010 [id number] RUBI GARAYNETH PATIENT MEDICARE ([facility]) MEDICARE () PART A Feb 22, 2020 PART A [id number] ABHILASH GARAY PATIENT MEDICARE (WNR) MEDICARE (M) PART A Feb 22, 2020 PART A [id number] ABHILASH GARAY PATIENT MEDICARE (WNR) MEDICARE (M) PART A Feb 22, 2020 PART A [id number] ABHILASH GARAY PATIENT MEDICARE (WNR) MEDICARE (M) PART A Feb 22, 2020 PART A [id number] ABHILASH GARAY PATIENT MEDICARE (WNR) MEDICARE (M) PART A Feb 22, 2020 PART A [id number] ABHILASH GARAY PATIENT Selected Encounter This section includes the information on record at [place] for the Encounter. Date/Time Encounter Type Encounter Description Reason Pro vider Source Jan 09, 2024 09:59 AM Outpatient Encounter ADMIN PAT ACTIVTIES (MASNONCT) IHE Encounter Template Text not used by [place] Plan of Treatment: Future Appointments (+ 6 months) and Future Tests (+/- 45 days) The Plan of Treatment section includes future care activities for the patient from all [place] treatmentfacilities. This section includes future appointments and future orders which are active, pending or scheduled. Future Appointments This section includes appointments that were scheduled to occur 6 months from the date of the Encounter, up to a maximum of 20 appointments. The data comes from all [place] treatment facilities. Appointment Date/Time Appointment Type Appointme nt Facility Name Jan 13, 2024 11:00 AM AMBULATORY - MEDICINE [facility] [place] [facility] Jan 14, 2024 03:00 [facility] Jan 21, 2024 03:00 PM [facility]UL[facility] Jan 28, 2024 11:00 AM AM[place]ORY [place]ICINE [place] [facility] Jan 30, 2024 08:00 AM AMBULATORY - MEDICINE [facility] Feb 02, 2024 02:00 PM AM[place]ORY [place]ICINE [place] [facility] Feb 04, 2024 11:00 AM AM[place]ORY [place]IC[place] [facility] Feb 09, 2024 11:30 AM AM[place]ORY [place]ICINE [place] [facility] Feb 09, 2024 02:00 PM AM[place]INE [place] [facility] [place] [facility] Feb 19, 2024 01:00 PM AMBULATORY - MEDICINE [facility] [place] [facility] Feb 25, 2024 11:00 AM AMBULATORY - NONE [place] [facility] Mar 04, 2024 01:00 PM AMBULATORY - MEDICINE [place] [facility] [place] [facility] Mar 09, 2024 01:00 PM AMBULATORY - MEDICINE [place] [facility] [place] [facility] Mar 11, 2024 11:00 AM AMBULATORY - MEDICINE [place] [facility] [place] [facility] Mar 15, 2024 12:15 PM AMBULATORY - MEDICINE [place] [facility] [place] [facility] Mar 25, 2024 01:00 PM AMBULATORY - MEDICINE [place] [facility] [place] [facility] Apr 06, 2024 10:30 AM [facility] Apr 07, 2024 03:30 PM AMBULATORY - NONE [place] [facility] Apr 08, 2024 01:00 PM AMBULATORY - MEDICINE [place] [facility] [place] [facility] Apr 12, 2024 11:00 AM AMBULATORY - MEDICINE [place] [facility] [place] [facility] Social History: Smoking Status (Most current) and Tobacco Use (All prior to encounter date) This section includes the most current, and the historical, smoking and tobacco- related health factors from the [place] facility where the Encounter took place. Current Smoking Status This section includes the most current smoking, or tobacco-related health factor, from the [place] facility where the Encounter took place. Date/Time Current Smoking Status Comment Odalis casey Apr 08, 2023 09:12 AM VA-TOBACCO NEVER USED [facility] Tobacco Use History This section includes a history of the smoking, or tobacco-related health factors, that were collected on or before the date of the Encounter. The data comes from the [place] facility where the Encounter took place. Date/Time Smoking Status/Tobacco Use Comment F darvin Aug 09, 2021 09:20 AM [facility] Encounter Notes: All associated encounter notes This section contains the clinical notes associated to the Encounter. Date/Time Encounter Note(s) Provider Source Jan 09, 2024 10:00 AM ADMINISTRATIVE NOT E: LOCAL TITLE: CCC: SCHEDULING ADMINISTRATION STANDARD TITLE: ADMINISTRATIVE NOTE DATE OF NOTE: JAN 09, 2024@10:00:01 ENTRY DATE: JAN 09, 2024@10:00:02 AUTHOR: NONI LAMBERT COSIGNER: URGENCY: STATUS: COMPLETED CCC: SCHEDULING ADMINISTRATION Has ADDENDA Patient Demographics Patient Name: ABHILASH GARAY Patient Primary Phone: [phone] Patient Primary Address: [address] [place] [id number] Patient : 1955 Patient Age: 68 Caller/Recipient Relation to Patient: Self Administrative Administrative Note Reason: Other Administrative Note Comments: Pt called. He states that he has asked on Friday for a referral to Vascular and aqua therapy and has not heard back. There are no referrals in there for these and he states he would like a call back this morning because nobody ever got back to him. Please call him this morning as he states he will be home. Thank you. /yunior/ NONI STEWARTN [facility] AMSA Signed: 01/09/2024 10:00 Receipt Acknowledged By: 01/12/2024 08:27 /yunior/ BREANNA BAKER RN-BC REGISTERED NURSE 01/12/2024 12:56 /yunior/ EUGENIE SALVADOR LPN Licensed Practical Nurse 01/12/2024 ADDENDUM STATUS: COMPLETED Author spoke with [facility] on 01/05/2024 as noted in addendum to 01/05/2024 scheduling admin message and am now awaiting info regarding list of available aquatic therapy facilities recently mailed to [facility] and for PCP to review massage and varicose vein consults requested. /yunior/ BREANNA BAKER RN-BC REGISTERED NURSE Signed: 01/12/2024 08:31 [facility] [place] [facility]
--- OUTSIDE RECORDS SUMMARY | 2024-06-29 18:54 | XMS_ITS | Encounter Summary ---
Author Name [facility] [place] Organization [facility] [place] [facility] [place] Address [address] [place] [address] Care Team Providers Care Associate Brand Manager Name Role Phone ABDIRAHMAN LAKE Primary [...] BASIC FAMIL Y Jun 24, 2009 [id number] [phone] ABHILASH GARAY PATIENT ANTHEM [place]BS [place] F[place] PREFERRED PROVIDER ORGANIZAT ION (PPO) FEP BASIC FAM Jun 24, 2009 112 [id number] [phone] ABHILASH GARAY PATIENT ANTHEM BCBS [place] FEP PREFERRED PROVIDER ORGANIZAT ION (PPO) FEP BASIC FAM Jun 24, 2009 [id number] [phone] ABHILASH GARAY PATIENT [place] PREFERRED PROVIDER ORGANIZAT ION (PPO) FEP BASIC FAM Jun 24, 2009 112 [id number] [phone] ABHILASH GARAY PATIENT [place] FEP PREFERRED PROVIDER ORGANIZAT ION (PPO) FEP BASIC FAM Jun 24, 2009 112 [id number] [phone] RUBI GARAYNETH PATIENT [place]BS [place] F[place] PREFERRED PROVIDER ORGANIZAT ION (PPO) BASIC FAMIL Y Jun 24, 2009 [id number] RUBI GARAYNETH PATIENT [place] PREFERRED PROVIDER ORGANIZAT ION (PPO) BASIC FAMIL Y Jun 24, 2009 [id number] RUBI GARAYNETH PATIENT [place] FEP PREFERRED PROVIDER ORGANIZAT ION (PPO) BASIC FAMIL Y Jun 24, 2009 [id number] RUBI GARAYNETH PATIENT [place] DENTAL DENTAL INSURANCE BASIC Jul 12, 2009 DENTAL [id number] DEJAHDANIKARUBI ACEVESNETH PATIENT [place] FEP PREFERRED PROVIDER ORGANIZAT ION (PPO) BASIC FAMIL Y Jun 24, 2009 [id number] [phone] ABHILASH GARAY PATIENT [employer] FEP ([id number]) PRESCRIPT ION FEPRX Jun 24, 2009 [id number] [phone] ABHILASH GARAY PATIENT [place] FEP BCBS PRESCRIPT ION CAREM ARK FEPRX PLAN Nov 21, 2021 [id number] ABHILASH GARAY PATIENT [employer] FEPRX PLAN PRESCRIPT ION CAREM ARK FEPRX Nov 21, 2021 [id number] ABHILASH GARAY PATIENT [employer]-F EP BCBS PRESCRIPT ION FEP CAREM ARK Nov 21, 2021 [id number] ABHILASH GARAY PATIENT [place]-F EP BCBS PRESCRIPT ION FEP Jun 23, 2010 [id number] RUBI GARAYNETH PATIENT MEDICARE ([facility]) MEDICARE () PART A Feb 22, 2020 PART A [id number] ABHILASH GARAY PATIENT MEDICARE (WNR) MEDICARE (M) PART A Feb 22, 2020 PART A [id number] [phone] ABHILASH GARAY PATIENT MEDICARE (WNR) MEDICARE (M) PART A Feb 22, 2020 PART A [id number] ABHILASH GARAY PATIENT MEDICARE (WNR) MEDICARE (M) PART A Feb 22, 2020 PART A [id number] ABHILASH GARAY PATIENT MEDICARE (WNR) MEDICARE (M) PART A Feb 22, 2020 PART A [id number] ABHILASH GARAY PATIENT Selected Encounter This section includes the information on record at [place] for the Encounter. Date/Time Encounter Type Encounter Description Reason Pro vider Source Jan 08, 2024 12:56 PM Outpatient Encounter ADMIN PAT ACTIVTIES (MASNONCT) IHE Encounter Template Text not used by [place] Plan of Treatment: Future Appointments (+ 6 months) and Future Tests (+/- 45 days) The Plan of Treatment section includes future care activities for the patient from all [place] treatmentfacilities. This section includes future appointments and future orders which are active, pending or scheduled. Future Appointments This section includes appointments that were scheduled to occur 6 months from the date of the Encounter, up to a maximum of 20 appointments. The data comes from all [place] treatment facilities. Appointment Date/Time Appointment Type Appointme nt Facility Name Jan 09, 2024 11:00 AM AMBULATORY - MEDICINE [facility] [place] [facility] Jan 13, 2024 11:00 AM AMBULATORY - MEDICINE [facility] [place] [facility] Jan 14, 2024 03:00 PM AMBULATORY - REHAB [facility] Jan 21, 2024 03:00 PM [facility] Jan 28, 2024 11:00 AM AMBULATORY - MEDICINE [place] [facility] Jan 30, 2024 08:00 AM AMBULATORY - MEDICINE [facility] Feb 02, 2024 02:00 PM AMBULATORY - MEDICINE [place] [facility] Feb 04, 2024 11:00 AM AMBULATORY - MEDICINE [place] [facility] [place] [facility] Feb 09, 2024 11:30 AM AMBULATORY - MEDICINE [facility] [place] [facility] Feb 09, 2024 02:00 PM AMBULATORY - MEDICINE [facility] [place] [facility] Feb 19, 2024 01:00 PM AMBULATORY - MEDICINE [facility] [place] [facility] Feb 25, 2024 11:00 AM AMBULATORY - NONE [facility] [place] [facility] Mar 04, 2024 01:00 PM AMBULATORY - MEDICINE [facility] [place] [facility] Mar 09, 2024 01:00 PM AMBULATORY - MEDICINE [facility] [place] [facility] Mar 11, 2024 11:00 AM AMBULATORY - MEDICINE [facility] [place] [facility] Mar 15, 2024 12:15 PM AMBULATORY - MEDICINE [facility] [place] [facility] Mar 25, 2024 01:00 PM AMBULATORY - MEDICINE [facility] [place] [facility] Apr 06, 2024 10:30 AM AMBULATORY - MEDICINE [place] [place] Apr 07, 2024 03:30 PM AMBULATORY - NONE [facility] [place] [facility] Apr 08, 2024 01:00 PM AMBULATORY - MEDICINE [facility] [place] [facility] Social History: Smoking Status (Most current) and Tobacco Use (All prior to encounter date) This section includes the most current, and the historical, smoking and tobacco- related health factors from the [place] facility where the Encounter took place. Current Smoking Status This section includes the most current smoking, or tobacco-related health factor, from the [place] facility where the Encounter took place. Date/Time Current Smoking Status Comment Odalis casey Apr 08, 2023 09:12 AM [facility] Tobacco Use History This section includes a history of the smoking, or tobacco-related health factors, that were collected on or before the date of the Encounter. The data comes from the [place] facility where the Encounter took place. Date/Time Smoking Status/Tobacco Use Comment Gilberto boston Aug 09, 2021 09:20 AM [facility] Encounter Notes: All associated encounter notes This section contains the clinical notes associated to the Encounter. Date/Time Encounter Note(s) Provider Source Jan 08, 2024 01:03 PM ADDENDUM: LOCAL TITLE: Addendum STANDARD TITLE: ADDENDUM DATE OF NOTE: JAN 08, 2024@13:03:31 ENTRY DATE: JAN 08, 2024@13:03:32 AUTHOR: RADHIKA GOMEZIGNER: URGENCY: STATUS: COMPLETED Placed CC massage therapy consult for [place] as requested and held for provider review. /yunior/ BREANNA BAKER RNKRISTEN REGISTERED NURSE Signed: 01/08/2024 13:03 Receipt Acknowledged By: 01/12/2024 16:27 /es/ VESTA BLISS MD PRIMARY CARE PHYSICIAN --- Original Document --- 01/08/24 CCC: SCHEDULING ADMINISTRATION: Patient Demographics Patient Name: ABHILASH GARAY Patient Primary Phone: [phone] Patient Primary Address: [address] [place] [phone] Patient : 1955 Patient Age: 68 Caller/Recipient Relation to Patient: Self Administrative Administrative Note Reason: Community Care / [place] Act Administrative Note Comments: patient is requesting a [facility] referral for massage therapy. Patient states this is an ongoing issue with his back that his PCP is aware as he is service connected. Patient would appreciate a call back with an update on this request. /yunior/ BELEN YIP Signed: 01/08/2024 12:56 Receipt Acknowledged By: 01/08/2024 12:59 /yunior/ BREANNA BAKER REGISTERED NURSE 01/08/2024 15:31 /es/ EUGENIE SALVADOR LPN Licensed Practical Nurse RADHIKA GOMEZ [place] [facility] Jan 08, 2024 12:56 PM ADMINISTRATIVE NOT E: LOCAL TITLE: CCC: SCHEDULING ADMINISTRATION STANDARD TITLE: ADMINISTRATIVE NOTE DATE OF NOTE: JAN 08, 2024@12:56:22 ENTRY DATE: JAN 08, 2024@12:56:22 AUTHOR: THEODORA,BELEN EXP COSIGNER: URGENCY: STATUS: COMPLETED CCC: SCHEDULING ADMINISTRATION Has ADDENDA Patient Demographics Patient Name: ABHILASH GARAY Patient Primary Phone: [phone] Patient Primary Address: [address] [place] [phone] Patient : 1955 Patient Age: 68 Caller/Recipient Relation to Patient: Self Administrative Administrative Note Reason: [facility] Care / [place] Act Administrative Note Comments: [facility]. Patient states this is an ongoing issue with his back that his PCP is aware as he is service connected. Patient would appreciate a call back with an update on this request. /oriana YIP Signed: 01/08/2024 12:56 Receipt Acknowledged By: 01/08/2024 12:59 /yunior/ BREANNA BAKER RN-BC REGISTERED NURSE 01/08/2024 15:31 /yunior/ EUGENIE SALVADOR LPN Licensed Practical Nurse 01/08/2024 ADDENDUM STATUS: COMPLETED Placed CC massage therapy consult for as requested and held for provider review. /yunior/ BREANNA BAKER RN-BC REGISTERED NURSE Signed: 01/08/2024 13:03 Receipt Acknowledged By: * AWAITING SIGNATURE * VESTA BLISS [facility]
--- OUTSIDE RECORDS SUMMARY | 2024-06-29 18:54 | XMS_ITS | Encounter Summary ---
Author Name [facility] [place] Address [address] [place] [address] Care Team Providers Care Rivet Bucker Name Role Phone ABDIRAHMAN LAKE Primary Care [...] BASIC FAMIL Y Jun 24, 2009 112 [id number] [phone] ABHILASH GARAY PATIENT ANTHEM [place]BS [place] PREFERRED PROVIDER ORGANIZAT ION (PPO) FEP BASIC FAM Jun 24, 2009 112 [id number] [phone] ABHILASH GARAY PATIENT ANTHEM BCBS [place] F[place] PREFERRED PROVIDER ORGANIZAT ION (PPO) FEP BASIC FAM Jun 24, 2009 112 [id number] [phone] ABHILASH GARAY PATIENT ANTHEM [place] PREFERRED PROVIDER ORGANIZAT ION (PPO) FEP BASIC FAM Jun 24, 2009 112 [id number] [phone] ABHILASH GARAY PATIENT [place]BS [place] FEP PREFERRED PROVIDER ORGANIZAT ION (PPO) FEP BASIC FAM Jun 24, 2009 112 [id number] [phone] ABHILASH GARAY PATIENT BCBS [place] FEP PREFERRED PROVIDER ORGANIZAT ION (PPO) BASIC FAMIL Y Jun 24, 2009 112 [id number] [phone] ABHILASH GARAY PATIENT [place] PREFERRED PROVIDER ORGANIZAT ION (PPO) BASIC FAMIL Y Jun 24, 2009 112 [id number] [phone] ABHILASH GARAY PATIENT [place] FEP PREFERRED PROVIDER ORGANIZAT ION (PPO) BASIC FAMIL Y Jun 24, 2009 112 [id number] ABHILASH GARAY PATIENT [place] F[place] DENTAL DENTAL INSURANCE BASIC Jul 12, 2009 DENTAL [id number] ABHILASH GARAY PATIENT [place] FEP PREFERRED PROVIDER ORGANIZAT ION (PPO) BASIC FAMIL Y Jun 24, 2009 [id number] ABHILASH GARAY PATIENT [employer] FEP ([id number]) PRESCRIPT ION FEPRX Jun 24, 2009 [id number] [phone] ABHILASH GARAY PATIENT [place] FEP BCBS PRESCRIPT ION CAREM ARK FEPRX PLAN Nov 21, 2021 [id number] ABHILASH GARAY PATIENT [employer] FEPRX PLAN PRESCRIPT ION CAREM ARK FEPRX Nov 21, 2021 [id number] ABHILASH GARAY PATIENT [employer]-F EP BCBS PRESCRIPT ION FEP CAREM ARK Nov 21, 2021 [id number] ABHILASH GARAY PATIENT [place]-F EP BCBS PRESCRIPT ION FEP Jun 23, 2010 [id number] RUBI GARAYNETH PATIENT MEDICARE (WN) MEDICARE () PART A Feb 22, 2020 PART A [id number] [phone] ABHILASH GARAY PATIENT MEDICARE (WN) MEDICARE () PART A Feb 22, 2020 PART A [id number] ABHILASH GARAY PATIENT MEDICARE (WNR) MEDICARE (M) PART A Feb 22, 2020 PART A [id number] [phone] ABHILASH GARAY PATIENT MEDICARE (WNR) MEDICARE (M) PART A Feb 22, 2020 PART A [id number] ABHILASH GARAY PATIENT MEDICARE (WNR) MEDICARE (M) PART A Feb 22, 2020 PART A [id number] ABHILASH GARAY PATIENT Selected Encounter This section includes the information on record at [place] for the Encounter. Date/Time Encounter Type Encounter Description Reason Provider Source Jan 06, 2024 11:00 AM EXERCISE CLASS HEALTH/WELLBEING SRVS ICD-10-CM Y93.42 Activity, PAT Yoder [place] IHE Encounter Template Text not used by [place] Assessments - Encounter Diagnoses This section includes the primary and secondary diagnoses documented for the Encounter. Date/Time Primary/Secondary Diagnosis Diagnosis Name Provider Source Jan 06, 2024 01:52 PM PRIMARY Activity, PEDRO Yoder [facility] [place] [facility] Plan of Treatment: Future Appointments (+ 6 months) and Future Tests (+/- 45 days) The Plan of Treatment section includes future care activities for the patient from all [place] treatmentfacilities. This section includes future appointments and future orders which are active, pending or scheduled. Future Appointments This section includes appointments that were scheduled to occur 6 months from the date of the Encounter, up to a maximum of 20 appointments. The data comes from all [place] treatment facilities. Appointment Date/Time Appointment Type Appointme nt Facility Name Jan 07, 2024 03:00 PM [facility] Jan 08, 2024 01:00 PM AM[facility]ULATORY - MEDICINE [facility] [place] [facility] Jan 09, 2024 11:00 AM AMBULATORY - MEDICINE [facility] [place] [facility] Jan 13, 2024 11:00 AM AMBULATORY - MEDICINE [facility] [place] [facility] Jan 14, 2024 03:00 PM [facility]ULATORY [facility] Jan 21, 2024 03:00 PM [facility] [place] [facility] Jan 28, 2024 11:00 AM [facility] [place] [facility] Jan 30, 2024 08:00 AM AMBULATORY - MEDICINE [facility] Feb 02, 2024 02:00 PM AM[facility]ULATORY [facility]INE [facility] [place] [facility] Feb 04, 2024 11:00 AM [facility]UL[facility] [place] [facility] Feb 09, 2024 11:30 AM [facility] [place] [facility] Feb 09, 2024 02:00 PM [facility]ULAT[facility] [place] [facility] Feb 19, 2024 01:00 PM AM[facility]ULATORY [facility]INE [facility] [place] [facility] Feb 25, 2024 11:00 AM AMBULATORY - NONE [facility] [place] [facility] Mar 04, 2024 01:00 PM AMBULATORY - MEDICINE [facility] [place] [facility] Mar 09, 2024 01:00 PM AM[facility]ULATORY [facility]ICINE [facility] [place] [facility] Mar 11, 2024 11:00 AM AM[facility]ULATORY [facility]INE [facility] [place] [facility] Mar 15, 2024 12:15 PM AMBULATORY - MEDICINE [facility] [place] [facility] Mar 25, 2024 01:00 PM AMBULATORY - MEDICINE [facility] [place] [facility] Apr 06, 2024 10:30 AM AM[facility]ULATORY - MEDICINE [facility] Social History: Smoking Status (Most current) and Tobacco Use (All prior to encounter date) This section includes the most current, and the historical, smoking and tobacco- related health factors from the [place] facility where the Encounter took place. Current Smoking Status This section includes the most current smoking, or tobacco-related health factor, from the [place] facility where the Encounter took place. Date/Time Current Smoking Status Comment Odalis casey Apr 08, 2023 09:12 AM [place]-TOBACCO NEVER USED [place] [place] [facility] Tobacco Use History This section includes a history of the smoking, or tobacco-related health factors, that were collected on or before the date of the Encounter. The data comes from the [place] facility where the Encounter took place. Date/Time Smoking Status/Tobacco Use Comment F acility Aug 09, 2021 09:20 AM VA-TOBACCO NEVER USED [facility] Encounter Notes: All associated encounter notes This section contains the clinical notes associated to the Encounter. Date/Time Encounter Note(s) Provider Source Jan 06, 2024 11:00 AM RECREATIONAL THERA PY NOTE: LOCAL TITLE: YOGA WELLBEING STANDARD TITLE: RECREATIONAL THERAPY NOTE DATE OF NOTE: JAN 06, 2024@11:00 ENTRY DATE: JAN 06, 2024@13:48:19 AUTHOR: MARY KATE MOORE EXP COSIGNER: URGENCY: [...] tree, triangle pose, wide leg forward bend, [place] 2, Extended Side Angle Pose, Intense Side Stretch, [place] 1, plank, cobra, locust, downward facing dog, wisdom pose, contralateral limb raises, head to knee pose, bridge, reclined twist, and knees to chest; Systematic Relaxation; and Gratitude. Modifications were geared toward the [place]'s individual needs and preferences. [place] was one of four participants in Group Yoga. He practiced all the postures offered, using yoga blocks and a yoga strap for support as needed. He modified his poses accordingly and was attentive to his breath throughout the session. [place] will return to class as his schedule allows. /yunior/ MARY KATE MOORE, [id number] Dining Room Busser Signed: 01/06/2024 13:55 MARY KATE MOORE [facility]
--- OUTSIDE RECORDS SUMMARY | 2024-06-29 18:54 | XMS_ITS ---
Author Name [facility] [place] [facility] [place] [facility] [place] Address [address] [place] [address] Care Team Providers Care Surveillance Inspector Name Role Phone ABDIRAHMAN LAKE Primary [...] BASIC FAMIL Y Jun 24, 2009 112 [id number] [phone] ABHILASH GARAY PATIENT ANTHEM BCBS [place] F[place] PREFERRED PROVIDER ORGANIZAT ION (PPO) FEP BASIC FAM Jun 24, 2009 112 [id number] [phone] ABHILASH GARAY PATIENT ANTHEM [place] F[place] PREFERRED PROVIDER ORGANIZAT ION (PPO) FEP BASIC FAM Jun 24, 2009 112 [id number] [phone] ABHILASH GARAY PATIENT [place]THE[place] PREFERRED PROVIDER ORGANIZAT ION (PPO) FEP BASIC FAM Jun 24, 2009 112 [id number] [phone] ABHILASH GARAY PATIENT [place] PREFERRED PROVIDER ORGANIZAT ION (PPO) FEP BASIC FAM Jun 24, 2009 112 [id number] [phone] ABHILASH GARAY PATIENT [place]BS [place] F[place] PREFERRED PROVIDER ORGANIZAT ION (PPO) BASIC FAMIL Y Jun 24, 2009 112 [id number] [phone] ABHILASH GARAY PATIENT [place] F[place] PREFERRED PROVIDER ORGANIZAT ION (PPO) BASIC FAMIL Y Jun 24, 2009 112 [id number] ABHILASH GARAY PATIENT [place] F[place] PREFERRED PROVIDER ORGANIZAT ION (PPO) BASIC FAMIL Y Jun 24, 2009 112 [id number] ABHILASH GARAY PATIENT [place] F[place] DENTAL DENTAL INSURANCE BASIC Jul 12, 2009 DENTAL [id number] ABHILASH GARAY PATIENT [place] PREFERRED PROVIDER ORGANIZAT ION (PPO) BASIC FAMIL Y Jun 24, 2009 [id number] ABHILASH GARAY PATIENT [employer] FEP ([id number]) PRESCRIPT ION FEPRX Jun 24, 2009 [id number] [phone] ABHILASH GARAY PATIENT [employer] FEP BCBS PRESCRIPT ION CAREM ARK FEPRX PLAN Nov 21, 2021 [id number] ABHILASH GARAY PATIENT [employer] FEPRX PLAN PRESCRIPT ION CAREM ARK FEPRX Nov 21, 2021 [id number] ABHILASH GARAY PATIENT [employer]-F EP BCBS PRESCRIPT ION FEP CAREM ARK Nov 21, 2021 [id number] ABHILASH GARAY PATIENT [employer]-F EP BCBS PRESCRIPT ION FEP Jun 23, 2010 [id number] RUBI GARAYNETH PATIENT MEDICARE (WN) MEDICARE () PART A Feb 22, 2020 PART A [id number] ABHILASH GARAY PATIENT MEDICARE (WN) MEDICARE () PART A Feb 22, 2020 PART A [id number] ABHILASH GARAY PATIENT MEDICARE (WNR) MEDICARE (M) PART A Feb 22, 2020 PART A [id number] ABHILASH GARAY PATIENT MEDICARE (WNR) MEDICARE (M) PART A Feb 22, 2020 PART A [id number] [id number] [phone] ABHILASH GARAY PATIENT MEDICARE (WNR) MEDICARE (M) PART A Feb 22, 2020 PART A [id number] ABHILASH GARAY PATIENT Selected Encounter This section includes the information on record at [place] for the Encounter. Date/Time Encounter Type Encounter Description Reason Provider Source Jan 01, 2024 01:00 PM EXERCISE CLASS HEALTH/WELLBEING SRVS ICD-10-CM Y93.42 Activity, PAT Yoder [place] IHE Encounter Template Text not used by [place] Assessments - Encounter Diagnoses This section includes the primary and secondary diagnoses documented for the Encounter. Date/Time Primary/Secondary Diagnosis Diagnosis Name Provider Source Jan 05, 2024 10:41 AM PRIMARY [facility] [place] [facility] Plan of Treatment: Future Appointments (+ 6 [...] 08, 2024 01:00 PM AMBULATORY - MEDICINE [facility] [place] [facility] Jan 09, 2024 11:00 AM AMBULATORY - MEDICINE [facility] [place] [facility] Jan 13, 2024 11:00 AM AMBULATORY - MEDICINE [facility] [place] [facility] Jan 14, 2024 03:00 PM [facility] Jan 21, 2024 03:00 PM [facility] Jan 28, 2024 11:00 AM [facility] [place] [facility] Jan 30, 2024 08:00 AM AM[facility]ULATORY - MEDICINE [facility] Feb 02, 2024 02:00 PM AMBULATORY - MEDICINE [facility] [place] [facility] Feb 04, 2024 11:00 AM AM[facility]ULATORY - [facility]ICINE [facility] [place] [facility] Feb 09, 2024 11:30 AM AMBULATORY - MEDICINE [facility] [place] [facility] Feb 09, 2024 02:00 PM AMBULATORY - [facility]INE [facility] [place] [facility] Feb 19, 2024 01:00 PM AMBULATORY - MEDICINE [facility] [place] [facility] Feb 25, 2024 11:00 AM AMBULATORY - NONE [facility] [place] [facility] Mar 04, 2024 01:00 PM AMBULATORY - MEDICINE [facility] [place] [facility] Mar 09, 2024 01:00 PM AMBULATORY - MEDICINE [facility] [place] [facility] Mar 11, 2024 11:00 AM AMBULATORY - MEDICINE [facility] [place] [facility] Mar 15, 2024 12:15 PM AMBULATORY - MEDICINE [facility] [place] [facility] Mar 25, 2024 01:00 PM AMBULATORY - MEDICINE [facility] [place] [facility] Social History: Smoking Status (Most current) [...] 08, 2023 09:12 AM VA-TOBACCO NEVER USED [place] [facility] [place] [facility] Tobacco Use History This section includes a history of the smoking, or tobacco-related health factors, that were collected on or before the date of the Encounter. The data comes from the [place] facility where the Encounter took place. Date/Time Smoking Status/Tobacco Use Comment F acility Aug 09, 2021 09:20 AM [place]-TOBACCO NEVER USED [facility] Encounter Notes: All associated encounter notes This section contains the clinical notes associated to the Encounter. Date/Time Encounter Note(s) Provider Source Jan 01, 2024 01:00 PM RECREATIONAL THERA PY NOTE: LOCAL TITLE: YOGA WELLBEING STANDARD TITLE: RECREATIONAL THERAPY NOTE DATE OF NOTE: JAN 01, 2024@13:00 ENTRY DATE: JAN 05, 2024@10:39:57 AUTHOR: MARY KATE MOORE EXP COSIGNER: URGENCY: [...] tree, triangle pose, wide leg forward bend, [place] 2, Extended Side Angle Pose, Intense Side Stretch, [place] 1, plank, cobra, locust, downward facing dog, wisdom pose, contralateral limb raises, head to knee pose, bridge, reclined twist, and knees to chest; Systematic Relaxation; and Gratitude. Modifications were geared toward the [place]'s individual needs and preferences. was one of ten participants in Group Yoga. He practiced all the postures offered, using a chair, yoga blocks, and a yoga strap for support as needed. He was attentive to his breath throughout the session. will return to class as his schedule allows. /yunior/ MARY KATE MOORE, [id number] Diet Supervisor Signed: 01/05/2024 10:45 MARY KATE MOORE [facility]
--- OUTSIDE RECORDS SUMMARY | 2024-06-29 18:55 | XMS_ITS | Encounter Summary ---
Author Name [facility] [place] Address [address] [place] [address] Care Team Providers Care Customer Retention Representative Name Role Phone ABDIRAHMAN LAKE Primary [...] BASIC FAMIL Y Jun 24, 2009 112 [id number] [phone] ABHILASH GARAY PATIENT ANTHEM BCBS [place] F[place] PREFERRED PROVIDER ORGANIZAT ION (PPO) FEP BASIC FAM Jun 24, 2009 112 [id number] [phone] ABHILASH GARAY PATIENT ANTHEM BCBS [place] FEP PREFERRED PROVIDER ORGANIZAT ION (PPO) FEP BASIC FAM Jun 24, 2009 112 [id number] [phone] ABHILASH GARAY PATIENT ANTHE[place] PREFERRED PROVIDER ORGANIZAT ION (PPO) FEP BASIC FAM Jun 24, 2009 112 [id number] [phone] ABHILASH GARAY PATIENT [place] PREFERRED PROVIDER ORGANIZAT ION (PPO) FEP BASIC FAM Jun 24, 2009 112 [id number] [phone] ABHILASH GARAY PATIENT [place] PREFERRED PROVIDER ORGANIZAT ION (PPO) BASIC FAMIL Y Jun 24, 2009 [id number] ABHILASH GARAY PATIENT [place] PREFERRED PROVIDER ORGANIZAT ION (PPO) BASIC FAMIL Y Jun 24, 2009 [id number] ABHILASH GARAY PATIENT [place] PREFERRED PROVIDER ORGANIZAT ION (PPO) BASIC FAMIL Y Jun 24, 2009 112 [id number] [phone] ABHILASH GARAY PATIENT [place] F[place] DENTAL DENTAL INSURANCE BASIC Jul 12, 2009 DENTAL [id number] ABHILASH GARAY PATIENT [place] PREFERRED PROVIDER ORGANIZAT ION (PPO) BASIC FAMIL Y Jun 24, 2009 112 [id number] [phone] ABHILASH GARAY PATIENT [employer] FEP ([id number]) PRESCRIPT ION FEPRX Jun 24, 2009 [id number] [phone] ABHILASH GARAY PATIENT [place] FEP BCBS PRESCRIPT ION CAREM ARK FEPRX PLAN Nov 21, 2021 [id number] ABHILASH GARAY PATIENT [employer] FEPRX PLAN PRESCRIPT ION CAREM ARK FEPRX Nov 21, 2021 [id number] ABHILASH GARAY PATIENT [employer]-F EP BCBS PRESCRIPT ION FEP CAREM ARK Nov 21, 2021 [id number] ABHILASH GARAY PATIENT [employer]-F EP BCBS PRESCRIPT ION FEP Jun 23, 2010 [id number] RUBI GARAYNETH PATIENT MEDICARE (WN) MEDICARE () PART A Feb 22, 2020 PART A [id number] ABHILASH GARAY PATIENT MEDICARE (WN) MEDICARE () PART A Feb 22, 2020 PART A [id number] ABHILASH GARAY PATIENT MEDICARE (WNR) MEDICARE (M) PART A Feb 22, 2020 PART A [id number] [phone] ABHILASH GARAY PATIENT MEDICARE (WNR) MEDICARE (M) PART A Feb 22, 2020 PART A [id number] ABHILASH GARAY PATIENT MEDICARE (WNR) MEDICARE (M) PART A Feb 22, 2020 PART A [id number] [id number] [phone] ABHILASH GARAY PATIENT Selected Encounter This section includes the information on record at [place] for the Encounter. Date/Time Encounter Type Encounter Description Reason Provider Source Jan 13, 2024 11:00 AM EXERCISE CLASS HEALTH/WELLBEING SRVS ICD-10-CM Y93.42 Activity, PAT Yoder [place] IHE Encounter Template Text not used by [place] Assessments - Encounter Diagnoses This section includes the primary and secondary diagnoses documented for the Encounter. Date/Time Primary/Secondary Diagnosis Diagnosis Name Provider Source Jan 13, 2024 03:31 PM PRIMARY [facility], [facility]RO [facility] Plan of Treatment: Future Appointments (+ [...] Appointment Type Appointme nt Facility Name Jan 14, 2024 03:00 PM AMBULATORY - REHAB [facility] Jan 21, 2024 03:00 PM AMBULATORY - REHAB [facility] Jan 28, 2024 11:00 AM AMBULATORY - MEDICINE [facility] [place] [facility] Jan 30, 2024 08:00 AM AMBULATORY - MEDICINE [facility] Feb 02, 2024 02:00 PM AMBULATORY - MEDICINE [facility] [place] [facility] Feb 04, 2024 11:00 AM AM[facility]ULATORY [facility]INE [facility] [place] [facility] Feb 09, 2024 11:30 AM AMBULATORY [facility] MEDICINE [facility] [place] [facility] Feb 09, 2024 02:00 PM AMBULATORY - MEDICINE [facility] [place] [facility] Feb 19, 2024 01:00 PM AMBULATORY - MEDICINE [facility] [place] [facility] Feb 25, 2024 11:00 AM AMBULATORY - NONE [facility] [place] [facility] Mar 04, 2024 01:00 PM AMBULATORY - MEDICINE [facility] [place] [facility] Mar 09, 2024 01:00 PM AMBULATORY - MEDICINE [facility] [place] [facility] Mar 11, 2024 11:00 AM AMBULATORY - MEDICINE [facility] [place] [facility] Mar 15, 2024 12:15 PM AMBULATORY - MEDICINE [facility] [place] [facility] Mar 25, 2024 01:00 PM AMBULATORY - MEDICINE [facility] [place] [facility] Apr 06, 2024 10:30 AM AMBULATORY - MEDICINE [facility] Apr 07, 2024 03:30 PM AMBULATORY - NONE [facility] [place] [facility] Apr 08, 2024 01:00 PM AMBULATORY - MEDICINE [facility] [place] [facility] Apr 12, 2024 11:00 AM AMBULATORY - MEDICINE [facility] [place] [facility] Apr 15, 2024 10:00 AM AMBULATORY - MEDICINE [facility] [place] [facility] Social History: Smoking Status (Most current) [...] 08, 2023 09:12 AM VA-TOBACCO NEVER USED [facility] [place] [facility] Tobacco Use History This section includes a history of the smoking, or tobacco-related health factors, that were collected on or before the date of the Encounter. The data comes from the [place] facility where the Encounter took place. Date/Time Smoking Status/Tobacco Use Comment F acility Aug 09, 2021 09:20 AM [place]-TOBACCO [facility] Encounter Notes: All associated encounter notes This section contains the clinical notes associated to the Encounter. Date/Time Encounter Note(s) Provider Source Jan 13, 2024 11:00 AM RECREATIONAL THERA PY NOTE: LOCAL TITLE: YOGA WELLBEING STANDARD TITLE: RECREATIONAL THERAPY NOTE DATE OF NOTE: JAN 13, 2024@11:00 ENTRY DATE: JAN 13, 2024@15:27:21 AUTHOR: MARY KATE MOORE COSIGNER: URGENCY: STATUS: COMPLETED Group Yoga Class [...] tree, triangle pose, wide leg forward bend, [place] 2, Extended Side Angle Pose, Intense Side Stretch, [place] 1, plank, cobra, locust, downward facing dog, wisdom pose, contralateral limb raises, head to knee pose, bridge, reclined twist, and knees to chest; Systematic Relaxation; and Gratitude. Modifications were geared toward the [place]'s individual needs and preferences. was one of twelve participants in Group Yoga. He practiced all the postures offered, using yoga blocks and a yoga strap for support as needed. He was attentive to his breath throughout the session. will return to class as his schedule allows. /yunior/ MARY KATE MOORE, [id number] Healthcare Liaison Signed: 01/13/2024 15:38 MARY KATE MOORE [facility]
--- OUTSIDE RECORDS SUMMARY | 2024-06-29 18:55 | XMS_ITS | Encounter Summary ---
Author Name [facility] [place] [facility] [place] Address [address] [place] [address] Care Team Providers Care Ged Teacher Name Role Phone ABDIRAHMAN LAKE Primary [...] BASIC FAMIL Y Jun 24, 2009 112 [id number] [phone] ABHILASH GARAY PATIENT ANTHEM BCBS [place] FEP PREFERRED PROVIDER ORGANIZAT ION (PPO) FEP BASIC FAM Jun 24, 2009 112 [id number] [phone] ABHILASH GARAY PATIENT ANTHEM BCBS [place] F[place] PREFERRED PROVIDER ORGANIZAT ION (PPO) FEP BASIC FAM Jun 24, 2009 112 [id number] [phone] ABHILASH GARAY PATIENT [place] PREFERRED PROVIDER ORGANIZAT ION (PPO) FEP BASIC FAM Jun 24, 2009 112 [id number] [phone] ABHILASH GARAY PATIENT [place] FEP PREFERRED PROVIDER ORGANIZAT ION (PPO) FEP BASIC FAM Jun 24, 2009 112 [id number] [phone] RUBI GARAYNETH PATIENT [place]BS [place] FEP PREFERRED PROVIDER ORGANIZAT ION (PPO) BASIC FAMIL Y Jun 24, 2009 112 [id number] RUBI GARAYNETH PATIENT [place] PREFERRED PROVIDER ORGANIZAT ION (PPO) BASIC FAMIL Y Jun 24, 2009 112 [id number] RUBI GARAYNETH PATIENT [place] FEP PREFERRED PROVIDER ORGANIZAT ION (PPO) BASIC FAMIL Y Jun 24, 2009 [id number] RUBI GARAYNETH PATIENT [place] FEP DENTAL DENTAL INSURANCE BASIC Jul 12, 2009 DENTAL [id number] DEJAHDANIKARUBI ACEVESNETH PATIENT [place] F[place] PREFERRED PROVIDER ORGANIZAT ION (PPO) BASIC FAMIL Y Jun 24, 2009 112 [id number] ABHILASH GARAY PATIENT [place] FEP ([id number]) PRESCRIPT ION FEPRX Jun 24, 2009 [id number] [phone] ABHILASH GARAY PATIENT [place] FEP BCBS PRESCRIPT ION CAREM ARK FEPRX PLAN Nov 21, 2021 [id number] ABHILASH GARAY PATIENT [place] FEPRX PLAN PRESCRIPT ION CAREM ARK FEPRX Nov 21, 2021 [id number] ABHILASH GARAY PATIENT [place]-F EP BCBS PRESCRIPT ION FEP CAREM ARK Nov 21, 2021 [id number] ABHILASH GARAY PATIENT [place]-F EP BCBS PRESCRIPT ION FEP Jun 23, 2010 [id number] RUBI GARAYNETH PATIENT MEDICARE ([facility]) MEDICARE () PART A Feb 22, 2020 PART A [id number] [phone] ABHILASH GARAY PATIENT MEDICARE (WNR) MEDICARE (M) PART A Feb 22, 2020 PART A [id number] ABHILASH GARAY PATIENT MEDICARE (WNR) MEDICARE (M) PART A Feb 22, 2020 PART A [id number] [phone] ABHILASH GARAY PATIENT MEDICARE (WNR) MEDICARE (M) PART A Feb 22, 2020 PART A [id number] ABHILASH GARAY PATIENT MEDICARE (WNR) MEDICARE (M) PART A Feb 22, 2020 PART A [id number] ABHILASH GARAY PATIENT Selected Encounter This section includes the [place] at [place] for [place] Encounter. Date/Time Encounter Type Encounter Description Reason Pro vider Source Jan 14, 2024 12:37 PM Outpatient Encounter ADMIN PAT ACTIVTIES (MASNONCT) [...] Appointment Type Appointme nt Facility Name Jan 21, 2024 03:00 PM [facility] Jan 28, 2024 11:00 AM [place] [facility] [place] [facility] Jan 30, 2024 08:00 AM AMBULATORY - MEDICINE [facility] Feb 02, 2024 02:00 PM [place] [facility] [place] [facility] Feb 04, 2024 11:00 AM [place] [facility] [facility] Feb 09, 2024 11:30 AM [place] [facility] [facility] Feb 09, 2024 02:00 PM [place] [facility] [place] [facility] Feb 19, 2024 01:00 PM [place] [facility] [place] [facility] Feb 25, 2024 11:00 AM [facility] [place]ONE [place] [facility] [place] [facility] Mar 04, 2024 01:00 PM [facility] [place] [facility] [place] [facility] Mar 09, 2024 01:00 PM [facility] [place] [facility] [place] [facility] Mar 11, 2024 11:00 AM [facility] [place] [facility] [place] [facility] Mar 15, 2024 12:15 PM [facility] [place] [facility] [facility] [place] [facility] Mar 25, 2024 01:00 PM [facility] [place] [facility] [place] [facility] Apr 06, 2024 10:30 AM AMBULATORY - MEDICINE [facility] Apr 07, 2024 03:30 PM AMBULATORY - NONE [facility] [place] [facility] Apr 08, 2024 01:00 PM [facility] [place] [facility] [place] [place] [facility] Apr 12, 2024 11:00 AM [facility] [place] [facility] [place] [facility] Apr 15, 2024 10:00 AM [facility] [place] [facility] [place] [facility] Apr 19, 2024 11:00 AM [place] [facility] Social History: Smoking Status (Most [...] 08, 2023 09:12 AM [facility] Tobacco Use History This section includes a history of the smoking, or tobacco-related health factors, that were collected on or before the date of the Encounter. The data comes from the [place] facility where the Encounter took place. Date/Time Smoking Status/Tobacco Use Comment Gilberto boston Aug 09, 2021 09:20 AM VA-TOBACCO NEVER USED [facility] Encounter Notes: All associated encounter notes This section contains the clinical notes associated to the Encounter. Date/Time Encounter Note(s) Provider Source Jan 15, 2024 10:20 AM ADDENDUM: LOCAL TITLE: Addendum STANDARD TITLE: ADDENDUM DATE OF NOTE: JAN 15, 2024@10:20:14 ENTRY DATE: JAN 15, 2024@10:20:14 AUTHOR: MICHELLE SANTOS COSIGNER: URGENCY: STATUS: COMPLETED called upset he has not heard back regarding not getting appointment letters. /yunior/ MICHELLE CHÁVEZ [facility] Signed: 01/15/2024 10:20 Receipt Acknowledged By: 01/21/2024 12:53 /yunior/ BREANNA BAKER RN-BC REGISTERED NURSE 01/15/2024 13:57 /yunior/ EUGENIE SALVADOR LPN Licensed Practical Nurse --- Original Document --- 01/14/24 CCC: SCHEDULING ADMINISTRATION: Patient Demographics Patient Name: ABHILASH GARAY Patient Primary Phone: [phone] Patient Primary Address: [address] [place] [address] Patient : 1955 Patient Age: 68 Caller/Recipient Relation to Patient: Self Administrative Administrative Note Reason: Other Administrative Note Comments: Patient is requesting to speak to PACT in regards to not getting his appointment reminders and letters in time and is upset Please call to advise /yunior/ SONIA CHÁVEZ 1 [facility] Signed: 01/14/2024 12:37 Receipt Acknowledged By: 01/16/2024 09:53 /BREANNA Gillespie RN-BC REGISTERED NURSE 01/15/2024 13:56 /yunior/ EUGENIE SALVADOR LPN Licensed Practical Nurse MICHELLE SANTOS [facility] [place] [facility] Jan 14, 2024 12:37 PM ADMINISTRATIVE NOT E: LOCAL TITLE: CCC: SCHEDULING ADMINISTRATION STANDARD TITLE: ADMINISTRATIVE NOTE DATE OF NOTE: JAN 14, 2024@12:37:41 ENTRY DATE: JAN 14, 2024@12:37:42 AUTHOR: SONIA CHAVARRIA EXP COSIGNER: URGENCY: STATUS: COMPLETED CCC: SCHEDULING ADMINISTRATION Has ADDENDA Patient Demographics Patient Name: ABHILASH GARAY Patient Primary Phone: [phone] Patient Primary [address]: [address] [place] [id number] Patient : 1955 Patient Age: 68 Caller/Recipient Relation to Patient: Self Administrative Administrative Note Reason: Other Administrative Note Comments: Patient is requesting to speak to PACT in regards to not getting his appointment reminders and letters in time and is upset Please call to advise /yunior/ SONIA CHÁVEZ 1 [facility] Signed: 01/14/2024 12:37 Receipt Acknowledged By: 01/16/2024 09:53 /es/ BREANNA BAKER RN-BC REGISTERED NURSE 01/15/2024 13:56 /yunior/ EUGENIE SALVADOR LPN Licensed Practical Nurse 01/15/2024 ADDENDUM STATUS: COMPLETED called upset he has not heard back regarding not getting appointment letters. /yunior/ MICHELLE CHÁVEZ 1 [facility] Signed: 01/15/2024 10:20 Receipt Acknowledged By: * AWAITING SIGNATURE * RADHIKA GOMEZ 01/15/2024 13:57 /yunior/ EUGENIE SALVADOR LPN Licensed Practical Nurse SONIA CHAVARRIA [place] [facility]
--- OUTSIDE RECORDS SUMMARY | 2024-06-29 18:55 | XMS_ITS | Encounter Summary ---
Author Name [facility] [place] [facility] [place] [facility] [place] Address [address] [place] [address] Care Team Providers Care Oil Plant Operator Name Role Phone ABDIRAHMAN LAKE Primary [...] BASIC FAMIL Y Jun 24, 2009 [id number] [phone] ABHILASH GARAY PATIENT ANTHEM BCBS [place] F[place] PREFERRED PROVIDER ORGANIZAT ION (PPO) FEP BASIC FAM Jun 24, 2009 112 [id number] [phone] ABHILASH GARAY PATIENT ANTHEM BCBS [place] F[place] PREFERRED PROVIDER ORGANIZAT ION (PPO) FEP BASIC FAM Jun 24, 2009 112 [id number] [phone] ABHILASH GARAY PATIENT [place] PREFERRED PROVIDER ORGANIZAT ION (PPO) FEP BASIC FAM Jun 24, 2009 112 [id number] [phone] ABHILASH GARAY PATIENT [place] PREFERRED PROVIDER ORGANIZAT ION (PPO) FEP BASIC FAM Jun 24, 2009 112 [id number] [phone] RUBI GARAYNETH PATIENT [place]BS [place] F[place] PREFERRED PROVIDER ORGANIZAT ION (PPO) BASIC FAMIL Y Jun 24, 2009 112 [id number] [phone] RUBI GARAYNETH PATIENT [place] FEP PREFERRED PROVIDER ORGANIZAT ION (PPO) BASIC FAMIL Y Jun 24, 2009 [id number] RUBI GARAYNETH PATIENT [place] FEP PREFERRED PROVIDER ORGANIZAT ION (PPO) BASIC FAMIL Y Jun 24, 2009 [id number] 62 RUBI GARAYNETH PATIENT [place] F[place] DENTAL DENTAL INSURANCE BASIC Jul 12, 2009 DENTAL [id number] DEJAHDANIKARUBI ACEVESNETH PATIENT [place] F[place] PREFERRED PROVIDER ORGANIZAT ION (PPO) BASIC FAMIL Y Jun 24, 2009 [id number] [phone] ABHILASH GARAY PATIENT [employer] FEP ([id number]) PRESCRIPT ION FEPRX Jun 24, 2009 [id number] [phone] ABHILASH GARAY PATIENT [place] FEP BCBS PRESCRIPT ION CAREM ARK FEPRX PLAN Nov 21, 2021 [id number] ABHILASH GARAY PATIENT [employer] FEPRX PLAN PRESCRIPT ION CAREM ARK FEPRX Nov 21, 2021 [id number] [phone] ABHILASH GARAY PATIENT [place]-F EP BCBS PRESCRIPT ION FEP CAREM ARK Nov 21, 2021 [id number] ABHILASH GARAY PATIENT [place]-F EP BCBS PRESCRIPT ION FEP Jun 23, 2010 [id number] RUBI GARAYNETH PATIENT MEDICARE ([facility]) MEDICARE () PART A Feb 22, 2020 PART A [id number] ABHILASH GARAY PATIENT MEDICARE (WNR) MEDICARE ([place]) PART A Feb 22, 2020 PART A [id number] ABHILASH GARAY PATIENT MEDICARE (WNR) MEDICARE ([place]) PART A Feb 22, 2020 PART A [id number] [id number] [id number] ABHILASH GARAY PATIENT MEDICARE (WNR) MEDICARE ([place]) PART A Feb 22, 2020 PART A [id number] ABHILASH GARAY PATIENT MEDICARE (WNR) MEDICARE ([place]) PART A Feb 22, 2020 PART A [id number] ABHILASH GARAY PATIENT Selected Encounter This section includes the information on [place] at [place] for the Encounter. Date/Time Encounter Type Encounter Description Reason Pro vider Source Jan 09, 2024 02:09 PM Outpatient Encounter ADMIN PAT ACTIVTIES (MASNONCT) IHE Encounter Template Text not used by [place] Plan of Treatment: Future Appointments (+ 6 [...] 13, 2024 11:00 AM AMBULATORY - MEDICINE [facility] [place] [facility] Jan 14, 2024 03:00 PM [facility] Jan 21[facility] 2024 03:00 PM [facility] Jan 28, 2024 11:00 AM [place] [facility] [facility] Jan 30, 2024 08:00 AM AMBULATORY - MEDICINE [facility] Feb 02, 2024 02:00 PM AM[place]ORY [place] [facility] [facility] Feb 04, 2024 11:00 AM [place] [facility] [facility] Feb 09, 2024 11:30 AM AM[place]ATORY [place] [facility] [place] [facility] Feb 09, 2024 02:00 PM AMBULATORY [place]ICINE [place] [facility] [place] [facility] Feb 19, 2024 01:00 PM AMBULATORY - MEDICINE [place] [facility] [place] [facility] Feb 25, 2024 11:00 AM AMBULATORY - NONE [facility] [place] [facility] Mar 04, 2024 01:00 PM AM[facility]ULATORY [place]INE [place] [facility] [place] [facility] Mar 09, 2024 01:00 PM AM[facility]ULATORY [place] [facility]INE [place] [facility] [place] [facility] Mar 11, 2024 11:00 AM AM[facility]ULATORY [place] [facility] [place] [facility] Mar 15, 2024 12:15 PM AM[facility]ULATORY [place] [facility] [place] [facility] Mar 25, 2024 01:00 PM [facility]AT[facility] [place] [facility] [place] [facility] Apr 06, 2024 10:30 [facility] Apr 07, 2024 03:30 PM AMBULATORY - NONE [place] [facility] [place] [place] [facility] Apr 08, 2024 01:00 PM AM[facility]ULATORY [place] [facility] [place] [facility] Apr 12, 2024 11:00 AM [place] [facility] [place] [facility] Social History: Smoking Status (Most current) and [...] 2023 09:12 AM [facility]CO [facility] Tobacco Use History This section includes a history of the smoking, or tobacco-related health factors, that were collected on or before the date of the Encounter. The data comes from the [place] facility where the Encounter took place. Date/Time Smoking Status/Tobacco Use Comment Gilberto boston Aug 09, 2021 09:20 AM [facility] Encounter Notes: All associated encounter notes This section contains the clinical notes associated to the Encounter. Date/Time Encounter Note(s) Provider Source Jan 09, 2024 02:10 PM ADMINISTRATIVE NOTE: LOCAL TITLE: CCC: SCHEDULING ADMINISTRATION STANDARD TITLE: ADMINISTRATIVE NOTE DATE OF NOTE: JAN 09, 2024@14:10:01 ENTRY DATE: JAN 09, 2024@14:10:01 AUTHOR: DENISSE GROVER COSIGNER: URGENCY: STATUS: COMPLETED CCC: SCHEDULING ADMINISTRATION Has ADDENDA Patient Demographics Patient Name: ABHILASH GARAY Patient Primary Phone: [phone] Patient Primary Address: [address] [place] [address] Patient : 1955 Patient Age: 68 Call Back Number: [phone] Caller/Recipient Relation to Patient: Self Administrative Administrative Note Reason: Paperwork Request Administrative Note Comments: [place] called in to provide fax number to the [facility] for therapy. He called earlier today in regards to consult request. Please see note 01/09/24 CCC: SCHEDULING ADMINISTRATION /yunior/ [facility] Signed: 01/09/2024 14:10 Receipt Acknowledged By: 01/14/2024 09:58 /yunior/ BREANNA BAKER RN-BC REGISTERED NURSE 01/13/2024 07:54 /es/ EUGENIE SALVADOR LPN Licensed Practical Nurse 01/14/2024 ADDENDUM STATUS: COMPLETED Called and left voicemail advising to contact PACT if he has any additional needs or requests at [phone] /yunior/ BREANNA BAKER RN-BC REGISTERED NURSE Signed: 01/14/2024 10:00 DENISSE GROVER [facility]
--- OUTSIDE RECORDS SUMMARY | 2024-06-29 18:55 | XMS_ITS | Encounter Summary ---
Author Name [facility] [place] Address [address] [place] [address] Care Team Providers Care Hvac Engineering Technician Name Role Phone ABDIRAHMAN LAKE Primary [...] BASIC FAMIL Y Jun 24, 2009 112 [id number] [phone] ABHILASH GARAY PATIENT ANTHEM BCBS [place] FEP PREFERRED PROVIDER ORGANIZAT ION (PPO) FEP BASIC FAM Jun 24, 2009 112 [id number] [phone] ABHILASH GARAY PATIENT ANTHEM BCBS [place] FEP PREFERRED PROVIDER ORGANIZAT ION (PPO) FEP BASIC FAM Jun 24, 2009 112 [id number] [phone] ABHILASH GARAY PATIENT ANTHEM [place] F[place] PREFERRED PROVIDER ORGANIZAT ION (PPO) FEP BASIC FAM Jun 24, 2009 112 [id number] [phone] ABHILASH GARAY PATIENT [place] FEP PREFERRED PROVIDER ORGANIZAT ION (PPO) FEP BASIC FAM Jun 24, 2009 112 [id number] [phone] RUBI GARAYNETH PATIENT BCBS [place] FEP PREFERRED PROVIDER ORGANIZAT ION (PPO) BASIC FAMIL Y Jun 24, 2009 112 [id number] [phone] RUBI GARAYNETH PATIENT [place] PREFERRED PROVIDER ORGANIZAT ION (PPO) BASIC FAMIL Y Jun 24, 2009 112 [id number] [phone] RUBI GARAYNETH PATIENT [place] FEP PREFERRED PROVIDER ORGANIZAT ION (PPO) BASIC FAMIL Y Jun 24, 2009 112 [id number] RUBI GARAYNETH PATIENT [place] FEP DENTAL DENTAL INSURANCE BASIC Jul 12, 2009 DENTAL [id number] DEJAHDANIKARUBI ACEVESNETH PATIENT [place] FEP PREFERRED PROVIDER ORGANIZAT ION (PPO) BASIC FAMIL Y Jun 24, 2009 [id number] ABHILASH GARAY PATIENT [place] FEP ([id number]) PRESCRIPT ION FEPRX Jun 24, 2009 [id number] [phone] ABHILASH GARAY PATIENT [place] FEP BCBS PRESCRIPT ION CAREM ARK FEPRX PLAN Nov 21, 2021 [id number] ABHILASH GARAY PATIENT [place] FEPRX PLAN PRESCRIPT ION CAREM ARK FEPRX Nov 21, 2021 [id number] ABHILASH GARAY PATIENT [place]-F EP BCBS PRESCRIPT ION FEP CAREM ARK Nov 21, 2021 [id number] ABHILASH GARAY PATIENT [place]-F EP BCBS PRESCRIPT ION FEP Jun 23, 2010 [id number] RUBI GARAYNETH PATIENT MEDICARE ([facility]) MEDICARE () PART A Feb 22, 2020 PART A [id number] [phone] ABHILASH GARAY PATIENT MEDICARE (WNR) MEDICARE (M) PART A Feb 22, 2020 PART A [id number] ABHILASH GARAY PATIENT MEDICARE (WNR) MEDICARE (M) PART A Feb 22, 2020 PART A [id number] [phone] ABHILASH GARAY PATIENT MEDICARE (WNR) MEDICARE (M) PART A Feb 22, 2020 PART A [id number] ABHILASH GARAY PATIENT MEDICARE (WNR) MEDICARE (M) PART A Feb 22, 2020 PART A [id number] [phone] ABHILASH GARAY PATIENT Selected Encounter This section includes the [place] at [place] for the [place]counter. Date/Time Encounter Type Encounter Description Reason Pro vider Source Jan 15, 2024 02:35 PM Outpatient Encounter ADMIN PAT ACTIVTIES (MASNONCT) [...] 21, 2024 03:00 [facility] Jan 28, 2024 11:00 AM [place] [facility] [facility] Jan 30, 2024 08:00 AM AM[facility]ULATORY - MEDICINE [facility] Feb 02, 2024 02:00 PM [place]ORY [place] [facility] [facility] Feb 04, 2024 11:00 AM AM[place]ATORY [place] [facility] Feb 09, 2024 11:30 AM AM[place]ULATORY [place] [facility] [facility] Feb 09, 2024 02:00 PM AM[place]ATORY [place] [facility] [facility] Feb 19, 2024 01:00 PM AM[place]ULATORY [place] [facility] [facility] Feb 25, 2024 11:00 AM AMBULATORY - NONE [place] [facility] [place] [facility] Mar 04, 2024 01:00 PM AMBULATORY - MEDICINE [place] [facility] [facility] Mar 09, 2024 01:00 PM AMBULATORY - MEDICINE [place] [facility] Mar 11, 2024 11:00 AM AMBULATORY - MEDICINE [place] [facility] [facility] Mar 15, 2024 12:15 PM AMBULATORY - MEDICINE [place] [facility] Mar 25, 2024 01:00 PM AMBULATORY - MEDICINE [place] [facility] [facility] Apr 06, 2024 10:30 AM AMBULATORY - MEDICINE [facility] Apr 07, 2024 03:30 PM AMBULATORY - NONE [facility] [place] [facility] Apr 08, 2024 01:00 PM AMBULATORY - MEDICINE [place] [facility] [facility] Apr 12, 2024 11:00 AM AMBULATORY - MEDICINE [place] [facility] [facility] Apr 15, 2024 10:00 AM AMBULATORY - MEDICINE [place] [facility] [facility] Apr 19, 2024 11:00 AM AM[place]ULATORY [place] [facility] [facility] Social History: Smoking Status (Most current) [...] 08, 2023 09:12 AM [facility] Tobacco Use History This section includes a history of the smoking, or tobacco-related health factors, that were collected on or before the date of the Encounter. The data comes from the [place] facility where the Encounter took place. Date/Time Smoking Status/Tobacco Use Comment Gilberto boston Aug 09, 2021 09:20 AM VA-TOBACCO NEVER USED [facility] Encounter Notes: All associated encounter notes This section contains the clinical notes associated to the Encounter. Date/Time Encounter Note(s) Provider Source Jan 16, 2024 12:55 PM ADDENDUM: LOCAL TITLE: Addendum STANDARD TITLE: ADDENDUM DATE OF NOTE: JAN 16, 2024@12:55 ENTRY DATE: JAN 21, 2024@12:55:09 AUTHOR: RADHIKA GOMEZIGNER: URGENCY: STATUS: COMPLETED also requested to have issues with receiving appointment reminder cards addressed by [place]. Author advised that nursing does not work with appointment reminders and letter information but will forward request for call back to discuss to [facility]ics manager to contact [facility] to discuss. /yunior/ BREANNA BAKER RN-BC REGISTERED NURSE Signed: 01/21/2024 12:56 Receipt Acknowledged By: 01/21/2024 14:58 /yunior/ BRIAN ROD OUTBOARD MOTORBOAT OPERATOR H[employer] BRIM [employer] CROWN LAMINATING OPERATOR --- Original Document --- 01/15/24 CCC: SCHEDULING ADMINISTRATION: Patient Demographics Patient Name: ABHILASH GARAY Patient Primary Phone: [phone] Patient Primary Address: [address] [place] [address] Patient : 1955 Patient Age: 68 Caller/Recipient Relation to Patient: Self Administrative Administrative Note Reason: Other Administrative Note Comments: Patient is request a call back from [facility]. Please call back not emergency but patient has called [facility] with no response. /yunior/ MAGALY HEALY Signed: 01/15/2024 14:36 Receipt Acknowledged By: 01/15/2024 15:50 /es/ BREANNA BAKER RN-BC REGISTERED NURSE 01/15/2024 15:50 /yunior/ EUGENIE SALVADOR LPN Licensed Practical Nurse 01/16/2024 ADDENDUM STATUS: COMPLETED author received call transferred from call center staff from [facility]. Author reviewed currently placed consults with and he verbalized that these consults have been requested. [facility] is concerned that he has not received any further information about scheduling of visits related to these consults and author advised that staff and the [facility] and [facility] offices have to all work on each consult as appropriate and then communicate with each other and [facility] to address each consult authorization which is a process that may take some time to complete. Author advised will eventually be contacted by CC staff or scheduling staff from providers that he has been referred to in order to schedule his services. Author inquired into if he has made a decision about which aquatic therapy facility he would like [facility] to place consult for in the community and he advised that he would like to have consult placed to [facility] facility. Author advised will place this consult as requested and then will be received and processed by CC staff and preferred facility for authorization of services. /BREANNA Gillespie RN-BC REGISTERED NURSE Signed: 01/16/2024 09:59 01/21/2024 ADDENDUM STATUS: UNSIGNED You may not VIEW this UNSIGNED Addendum. RADHIKA GOMEZ [facility] Jan 15, 2024 02:35 PM ADMINISTRATIVE NOT E: LOCAL TITLE: CCC: SCHEDULING ADMINISTRATION STANDARD TITLE: ADMINISTRATIVE NOTE DATE OF NOTE: JAN 15, 2024@14:35:58 ENTRY DATE: JAN 15, 2024@14:35:59 AUTHOR: MAGALY HEALY COSIGNER: URGENCY: STATUS: COMPLETED CCC: SCHEDULING ADMINISTRATION Has ADDENDA Patient Demographics Patient Name: ABHILASH GARAY Patient Primary Phone: [phone] Patient Primary Address: [address] [place] [address] Patient : 1955 Patient Age: 68 Caller/Recipient Relation to Patient: Self Administrative Administrative Note Reason: Other Administrative Note Comments: Patient is request a call back from [facility]. Please call back not emergency but patient has called [facility] with no response. /oriana HEALY Signed: 01/15/2024 14:36 Receipt Acknowledged By: 01/15/2024 15:50 /yunior/ BREANNA BAKER RN-BC REGISTERED NURSE 01/15/2024 15:50 /yunior/ EUGENIE SALVADOR LPN Licensed Practical Nurse 01/16/2024 ADDENDUM STATUS: COMPLETED author received call transferred from call center staff from [facility]. Author reviewed currently placed consults with and he verbalized that these consults have been requested. [facility] is concerned that he has not received any further information about scheduling of visits related to these consults and author advised that CC staff and the community care and [facility] offices have to all work on each consult as appropriate and then communicate with each other and to address each consult authorization which is a process that may take some time to complete. Author advised Anitha will eventually be contacted by CC staff or scheduling staff from providers that he has been referred to in order to schedule his services. Author inquired into if he has made a decision about which aquatic therapy facility he would like pact to place consult for in the community and he advised that he would like to have consult placed to [facility] services facility. Author advised will place this consult as requested and then will be received and processed by CC staff and preferred facility for authorization of services. /BREANNA Gillespie RN-RONI REGISTERED NURSE Signed: 01/16/2024 09:59 01/16/2024 ADDENDUM STATUS: COMPLETED also requested to have issues with receiving appointment [place]. Author advised that nursing does not work with appointment reminders and letter information but will forward request for call back to discuss to [facility] to contact to discuss. /BREANNA Gillespie RN-RONI REGISTERED NURSE Signed: 01/21/2024 12:56 Receipt Acknowledged By: 01/21/2024 14:58 /yunior/ BRIAN ROD OUTBOARD MOTORBOAT OPERATOR HAT BRIM AND CROWN LAMINATING OPERATOR 01/21/2024 ADDENDUM STATUS: COMPLETED Trap Setter called and spoke to about his missed appt cards being mailed and marketing underwriter informed that there was a glitch in the process for the appt reminder cards and they are working on. [facility] was very upset with this and the [facility] and said he has already called the patient advocate. Trap Setter let know that I would look into this further and bring his complaint higher. /yunior/ BRIAN ROD OUTBOARD MOTORBOAT OPERATOR HAT BRIM AND CROWN LAMINATING OPERATOR Signed: 01/21/2024 15:01 MAGALY HEALY [place] [facility]
--- OUTSIDE RECORDS SUMMARY | 2024-06-29 18:55 | XMS_ITS | Encounter Summary ---
Author Name [facility] [place] [facility] [place] Address [address] [place] [address] Care Team Providers Care Music Historian Name Role Phone ABDIRAHMAN LAKE Primary Care [...] BASIC FAMIL Y Jun 24, 2009 112 [id number] [phone] ABHILASH GARAY PATIENT ANTHEM BCBS [place] FEP PREFERRED PROVIDER ORGANIZAT ION (PPO) FEP BASIC FAM Jun 24, 2009 112 [id number] [phone] ABHILASH GARAY PATIENT ANTHEM [place] F[place] PREFERRED PROVIDER ORGANIZAT ION (PPO) FEP BASIC FAM Jun 24, 2009 112 [id number] [phone] ABHILASH GARAY PATIENT ANTHE[place] PREFERRED PROVIDER ORGANIZAT ION (PPO) FEP BASIC FAM Jun 24, 2009 112 [id number] [phone] ABHILASH GARAY PATIENT [place] PREFERRED PROVIDER ORGANIZAT ION (PPO) FEP BASIC FAM Jun 24, 2009 112 [id number] [phone] RUBI GARAYNETH PATIENT [place] F[place] PREFERRED PROVIDER ORGANIZAT ION (PPO) BASIC FAMIL Y Jun 24, 2009 112 [id number] RUBI GARAYNETH PATIENT [place] PREFERRED PROVIDER ORGANIZAT ION (PPO) BASIC FAMIL Y Jun 24, 2009 112 [id number] RUBI GARAYNETH PATIENT [place] F[place] PREFERRED PROVIDER ORGANIZAT ION (PPO) BASIC FAMIL Y Jun 24, 2009 112 [id number] RUBI GARAYNETH PATIENT [place] F[place] DENTAL DENTAL INSURANCE BASIC Jul 12, 2009 DENTAL [id number] [phone] DEJAHDANIKARUBI ACEVESNETH PATIENT [place] FEP PREFERRED PROVIDER ORGANIZAT ION (PPO) BASIC FAMIL Y Jun 24, 2009 112 [id number] ABHILASH GARAY PATIENT [place] FEP ([id number]) PRESCRIPT ION FEPRX Jun 24, 2009 [id number] [phone] ABHILASH GARAY PATIENT [place] FEP BCBS PRESCRIPT ION CAREM ARK FEPRX PLAN Nov 21, 2021 [id number] ABHILASH GARAY PATIENT [place] FEPRX PLAN PRESCRIPT ION CAREM ARK FEPRX Nov 21, 2021 [id number] [phone] ABHILASH GARAY PATIENT [place]-F EP BCBS PRESCRIPT ION FEP CAREM ARK Nov 21, 2021 [id number] ABHILASH GARAY PATIENT [place]-F EP BCBS PRESCRIPT ION FEP Jun 23, 2010 [id number] RUBI GARAYNETH PATIENT MEDICARE ([facility]) MEDICARE () PART A Feb 22, 2020 PART A [id number] [phone] ABHILASH GARAY PATIENT MEDICARE (WNR) MEDICARE (M) PART A Feb 22, 2020 PART A [id number] NV71 [id number] ABHILASH GARAY PATIENT MEDICARE (WNR) MEDICARE (M) PART A Feb 22, 2020 PART A [id number] ABHILASH GARAY PATIENT MEDICARE (WNR) MEDICARE (M) PART A Feb 22, 2020 PART A [id number] NV71 [phone] ABHILASH GARAY PATIENT MEDICARE (WNR) MEDICARE (M) PART A Feb 22, 2020 PART A [id number] [phone] ABHILASH GARAY PATIENT Selected Encounter This section includes the information on record at [place] for the Encounter. Date/Time Encounter Type Encounter Description Reason Pro vider Source Jan 13, 2024 09:43 AM Outpatient Encounter ADMIN PAT ACTIVTIES (MASNONCT) IHE Encounter Template Text not used by [place] Plan of Treatment: Future Appointments (+ 6 months) and Future Tests (+/- 45 days) The Plan of Treatment section includes future care activities for the patient from all [place] treatmentfacilities. This section includes future appointments and future orders which are active, pending or scheduled. Future Appointments This section includes appointments that were scheduled to occur 6 months from the date of the Encounter, up to a maximum of 20 appointments. The data comes from all [place] treatment facilities. Appointment Date/Time Appointment Type Appointme nt Facility Name Jan 14, 2024 03:00 PM AMBULATORY - REHAB [facility] Jan 21, 2024 03:00 PM [facility] Jan 28, 2024 11:00 AM AMBULATORY - [place]ICINE [place] [facility] [place] [facility] Jan 30, 2024 08:00 AM AMBULATORY - MEDICINE [facility] Feb 02, 2024 02:00 PM AMBULATORY - MEDICINE [place] [facility] [place] [facility] Feb 04, 2024 11:00 AM AMBULATORY - MEDICINE [place] [facility] [place] [facility] Feb 09, 2024 11:30 AM AMBULATORY - MEDICINE [place] [facility] [place] [facility] Feb 09, 2024 02:00 PM AMBULATORY - MEDICINE [place] [facility] [place] [facility] Feb 19, 2024 01:00 PM AMBULATORY - MEDICINE [place] [facility] [place] [facility] Feb 25, 2024 11:00 AM AMBULATORY - NONE [facility] [place] [facility] Mar 04, 2024 01:00 PM AMBULATORY - MEDICINE [facility] [place] [facility] Mar 09, 2024 01:00 PM AMBULATORY - MEDICINE [facility] [place] [facility] Mar 11, 2024 11:00 AM AMBULATORY - MEDICINE [facility] [place] [facility] Mar 15, 2024 12:15 PM AMBULATORY - MEDICINE [facility] [place] [facility] Mar 25, 2024 01:00 PM AMBULATORY - MEDICINE [facility] [place] [facility] Apr 06, 2024 10:30 AM [facility] Apr 07, 2024 03:30 PM AMBULATORY - NONE [facility] [place] [facility] Apr 08, 2024 01:00 PM AMBULATORY - MEDICINE [place] [facility] [place] [facility] Apr 12, 2024 11:00 AM AMBULATORY - MEDICINE [facility] [place] [facility] Apr 15, 2024 10:00 AM AMBULATORY - MEDICINE [place] [facility] [place] [facility] Social History: Smoking Status (Most current) and Tobacco Use (All prior to encounter date) This section includes the most current, and the historical, smoking and tobacco- related health factors from the [place] facility where the Encounter took place. Current Smoking Status This section includes the most current smoking, or tobacco-related health factor, from the [place] facility where the Encounter took place. Date/Time Current Smoking Status Comment Odalis casey Apr 08, 2023 09:12 AM VA-TOBACCO NEVER USED [facility] Tobacco Use History This section includes a history of the smoking, or tobacco-related health factors, that were collected on or before the date of the Encounter. The data comes from the [place] facility where the Encounter took place. Date/Time Smoking Status/Tobacco Use Comment F darvin Aug 09, 2021 09:20 AM [facility] Encounter Notes: All associated encounter notes This section contains the clinical notes associated to the Encounter. Date/Time Encounter Note(s) Provider Source Jan 13, 2024 09:43 AM ADMINISTRATIVE NOT E: LOCAL TITLE: CCC: SCHEDULING ADMINISTRATION STANDARD TITLE: ADMINISTRATIVE NOTE DATE OF NOTE: JAN 13, 2024@09:43:52 ENTRY DATE: JAN 13, 2024@09:43:52 AUTHOR: PRANEETH SCHMIDT COSIGNER: URGENCY: STATUS: COMPLETED Patient Demographics Patient Name: ABHILASH GARAY Patient Primary Phone: [phone] Patient Primary [address]: [address] [place] [address] Patient : 1955 Patient Age: 68 Call Back Number: [phone] Caller/Recipient Relation to Patient: Self Administrative Administrative Note Reason: Other Administrative Note Comments: [place] states he is waiting for a call back from [facility]. Please call /es/ PRANEETH SCHMIDT Signed: 01/13/2024 09:44 Receipt Acknowledged By: 01/14/2024 09:55 /es/ BREANNA BAKER RN-BC REGISTERED NURSE 01/13/2024 11:00 /es/ EUGENIE SALVADOR LPN Licensed Practical Nurse PRANEETH SCHMIDT [facility]
--- OUTSIDE RECORDS SUMMARY | 2024-06-29 18:55 | XMS_ITS | Encounter Summary ---
Author Name [facility] [place] [facility] [place] Address [address] [place] [address] Care Team Providers Care Fork Lift Technician Name Role Phone ABDIRAHMAN LAKE Primary [...] BASIC FAMIL Y Jun 24, 2009 112 [id number] [phone] ABHILASH GARAY PATIENT ANTHEM BCBS [place] F[place] PREFERRED PROVIDER ORGANIZAT ION (PPO) FEP BASIC FAM Jun 24, 2009 112 [id number] [phone] ABHILASH GARAY PATIENT ANTHEM BCBS [place] F[place] PREFERRED PROVIDER ORGANIZAT ION (PPO) FEP BASIC FAM Jun 24, 2009 112 [id number] [phone] ABHILASH GARAY PATIENT [place] PREFERRED PROVIDER ORGANIZAT ION (PPO) FEP BASIC FAM Jun 24, 2009 112 [id number] [phone] ABHILASH GARYA PATIENT [place] F[place] PREFERRED PROVIDER ORGANIZAT ION (PPO) FEP BASIC FAM Jun 24, 2009 112 [id number] [phone] RUBI GARAYNETH PATIENT BCBS [place] F[place] PREFERRED PROVIDER ORGANIZAT ION (PPO) BASIC FAMIL Y Jun 24, 2009 112 [id number] [phone] ABHILASH GARAY PATIENT [place] PREFERRED PROVIDER ORGANIZAT ION (PPO) BASIC FAMIL Y Jun 24, 2009 112 [id number] [phone] ABHILASH GARAY PATIENT [place] F[place] PREFERRED PROVIDER ORGANIZAT ION (PPO) BASIC FAMIL Y Jun 24, 2009 112 [id number] [phone] ABHILASH GARAY PATIENT [place] F[place] DENT[place] DENTAL INSURANCE BASIC Jul 12, 2009 DENTAL [id number] [phone] ABHILASH GARAY PATIENT [place] F[place] PREFERRED PROVIDER ORGANIZAT ION (PPO) BASIC FAMIL Y Jun 24, 2009 [id number] ABHILASH GARAY PATIENT [employer] FEP ([id number]) PRESCRIPT ION FEPRX Jun 24, 2009 [id number] [phone] ABHILASH GARAY PATIENT [place] FEP BCBS PRESCRIPT ION CAREM ARK FEPRX PLAN Nov 21, 2021 [id number] ABHILASH GARAY PATIENT [employer] FEPRX PLAN PRESCRIPT ION CAREM ARK FEPRX Nov 21, 2021 [id number] ABHILASH GARAY PATIENT [place]-F EP BCBS PRESCRIPT ION FEP CAREM ARK Nov 21, 2021 [id number] ABHILASH GARAY PATIENT [place]-F EP BCBS PRESCRIPT ION FEP Jun 23, 2010 [id number] DEJAHDANIKARUBI ACEVESNETH PATIENT MEDICARE (WN) MEDICARE (M) PART A Feb 22, 2020 PART A [id number] RUBI GARAYNETH PATIENT MEDICARE (WN) MEDICARE (M) PART A Feb 22, 2020 PART A [id number] ABHILASH GARAY PATIENT MEDICARE (WNR) MEDICARE (M) PART A Feb 22, 2020 PART A [id number] [phone] ABHILASH GARAY PATIENT MEDICARE (WNR) MEDICARE (M) PART A Feb 22, 2020 PART A [id number] ABHILASH GARAY PATIENT MEDICARE (WNR) MEDICARE (M) PART A Feb 22, 2020 PART A [id number] ABHILASH GARAY PATIENT Selected Encounter This section includes the information on record at [place] for the Encounter. Date/Time Encounter Type Encounter Description Reason Provider Source Jan 14, 2024 03:00 PM SELF CARE MNGMENT TRAINING PHYSICAL THERAPY ICD-10-CM M41.9 Scoliosis, unspecified HERO MEDRANO Fran Encounter Template Text not used by [place] Assessments - Encounter Diagnoses This section includes the primary and secondary diagnoses documented for the Encounter. Date/Time Primary/Secondary Diagnosis Diagnosis Name Provider Source Jan 14, 2024 03:24 PM PRIMARY Scoliosis, unspecified HERO MEDRANO Plan of Treatment: Future Appointments (+ 6 months) and Future Tests (+/- 45 days) The Plan of Treatment section includes future care activities for the patient from all [place] treatmentfacilities. This section includes future appointments and [...] 03:00 PM AMBULATORY - REHAB MEDICIN [place] Jan 28, 2024 11:00 AM AMBULATORY - MEDICINE [place] [facility] Jan 30, 2024 08:00 AM AMBULATORY - MEDICINE [facility] Feb 02, 2024 02:00 PM AMBULATORY - MEDICINE [place] [facility] Feb 04, 2024 11:00 AM AMBULATORY - MEDICINE [facility] [place] [facility] Feb 09, 2024 11:30 AM AMBULATORY - MEDICINE [place] [facility] Feb 09, 2024 02:00 PM AMBULATORY - MEDICINE [place] [facility] Feb 19, 2024 01:00 PM AMBULATORY - MEDICINE [place] [facility] Feb 25, 2024 11:00 AM AMBULATORY - NONE [place] [facility] Mar 04, 2024 01:00 PM AMBULATORY - MEDICINE [place] [facility] [place] [facility] Mar 09, 2024 01:00 PM AMBULATORY - MEDICINE [place] [facility] [place] [facility] Mar 11, 2024 11:00 AM AMBULATORY - MEDICINE [place] [facility] [place] [facility] Mar 15, 2024 12:15 PM AMBULATORY - MEDICINE [place] [facility] [place] [facility] Mar 25, 2024 01:00 PM AMBULATORY - MEDICINE [place] [facility] [place] [facility] Apr 06, 2024 10:30 AM AMBULATORY [facility] MED[facility]INE [facility] Apr 07, 2024 03:30 PM AMBULATORY - NONE [place] [facility] Apr 08, 2024 01:00 PM AMBULATORY - MEDICINE [place] [facility] Apr 12, 2024 11:00 AM AMBULATORY - MEDICINE [place] [facility] Apr 15, 2024 10:00 AM AMBULATORY - MEDICINE [place] [facility] Apr 19, 2024 11:00 AM AMBULATORY - MEDICINE [place] [facility] Social History: Smoking Status (Most current) [...] Odalis casey Aug 18, 2020 10:00 AM [place]-TOBACCO NEVER USED [place] Tobacco Use History This section includes a history of the smoking, or tobacco-related health factors, that were collected on or before the date of the Encounter. The data comes from the [place] facility where the Encounter took place. Date/Time Smoking Status/Tobacco Use Comment Gilberto boston Dec 15, 2018 12:14 PM [place]-TOBACCO NEVER USED [place] Jun 11, 2017 04:15 PM LIFETIME NON-TOBACCO USER [place] Jan 01, 2016 11:12 AM LIFETIME NON-TOBACCO USER [place] Jan 16, 2005 08:54 AM LIFETIME NON-SMOKER [place] Nov 29, 2003 08:05 AM LIFETIME NON-SMOKER [place] Jan 07, 2001 08:33 AM LIFETIME NON-SMOKER [place] Encounter Notes: All associated encounter notes This section contains the clinical notes associated to the Encounter. Date/Time Encounter Note(s) Provider Source Jan 14, 2024 02:50 PM PHYSICAL THERAPY N OTE: LOCAL TITLE: PHYSICAL THERAPY STANDARD TITLE: PHYSICAL THERAPY NOTE DATE OF NOTE: JAN 14, 2024@14:50 ENTRY DATE: JAN 14, 2024@14:50:42 AUTHOR: HERO MEDRANO EXP COSIGNER: URGENCY: STATUS: COMPLETED Initial Evaluation date: 12/17/23 Progress Note Date: 01/16/24 Treatment #: 3 Treatment time: 35 Diagnosis:Scoliosis, unspecified(ICD-10-CM M41.9) Provider:VESTA BLISS PT Treatment Precautions: Patient identified by full name and date of goes by Rubi Martin SUBJECTIVE: patient states their lower back is feeling sore OBJECTIVE: Therapeutic Exercise: Mins: 20 nustep 10mins prone press up onto elbows 10x10s cat cow 5 child's pose 30s DKTC with heels on ecuadorean ball 10x5s posterior pelvic tilt 5reps Supine marches 10reps quadruped alt leg extension 5reps Manual therapy: Mins: Neuro re-ed: Mins: Other: Mins: Modalities: Mins: [] contraindication screen completed prior to modality [] skin intact pre/post modality Access Code: [email or web address] URL: [email or web address] Date: 01/14/2024 Prepared by: Hero Medrano Exercises - Step [...] - 2 sets - 10 reps - Prone Press Up On Elbows - 1 x daily - 7 x weekly - 5-10 reps - 5-10 hold - Bird Dog - 1 x daily - 7 x weekly - 2 sets - 5-10 reps PATIENT EDUCATION: Mins: 10 Patient education was provided for all aspects of care during this clinical encounter. Provided updated written HEP to patient reviewing proper form sets reps and frequency and safety precautions with patient verbalizing and demonstrating good understanding during visit. DIscussed how to use pain as a guide for their symptoms that some soreness as long as the pain level is minimal is ok to work through, should avoid sharper pains. Discussed their recent MRi report utilizing a spine model to discuss the relevant anatomy of the spine and the disc. discussed disc mechanics and how this relates to POC and therex plan. ASSESSMENT: Patient seen for routine follow up. Patient with no significant changes in their symptoms since eval. 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 Today, provided instruction through progressions in lumbar ROM and lumbopelvic stability exercises with fair tolerance from patient. Spent time discussing how to use pain as a guide for symptoms. Also spent time discussing their recent MRi findings. Provided instruction for extension based therex program today and provided updated written HEp for carryover. PLAN: Progress as tolerated flexion based therex program focusing on improving lumbar ROM, improving posterior chain flexibility, progressive abdominal and gluteal [...] MEDRANO PT, DPT PHYSICAL THERAPIST Signed: 01/14/2024 15:26 HERO MEDRANO [place]
--- OUTSIDE RECORDS SUMMARY | 2024-06-29 18:55 | XMS_ITS | Encounter Summary ---
Author Name [facility] [place] Address [address] [place] [address] Care Team Providers Care Hydrological Technical Officer Name Role Phone ABDIRAHMAN LAKE Primary [...] BASIC FAMIL Y Jun 24, 2009 [id number] [phone] ABHILASH GARAY PATIENT ANTHEM BCBS [place] F[place] PREFERRED PROVIDER ORGANIZAT ION (PPO) FEP BASIC FAM Jun 24, 2009 112 [id number] [phone] ABHILASH GARAY PATIENT ANTHEM BCBS [place] FEP PREFERRED PROVIDER ORGANIZAT ION (PPO) FEP BASIC FAM Jun 24, 2009 112 [id number] [phone] ABHILASH GARAY PATIENT [place] PREFERRED PROVIDER ORGANIZAT ION (PPO) FEP BASIC FAM Jun 24, 2009 112 [id number] [phone] ABHILASH GARAY PATIENT [place] PREFERRED PROVIDER ORGANIZAT ION (PPO) FEP BASIC FAM Jun 24, 2009 112 [id number] [phone] ABHILASH GARAY PATIENT [place]BS [place] F[place] PREFERRED PROVIDER ORGANIZAT ION (PPO) BASIC FAMIL Y Jun 24, 2009 [id number] ABHILASH GARAY PATIENT [place] PREFERRED PROVIDER ORGANIZAT ION (PPO) BASIC FAMIL Y Jun 24, 2009 [id number] ABHILASH GARAY PATIENT [place] PREFERRED PROVIDER ORGANIZAT ION (PPO) BASIC FAMIL Y Jun 24, 2009 [id number] ABHILASH GARAY PATIENT [place] F[place] DENTAL DENTAL INSURANCE BASIC Jul 12, 2009 DENTAL [id number] [phone] ABHILASH GARAY PATIENT [place] PREFERRED PROVIDER ORGANIZAT ION (PPO) BASIC FAMIL Y Jun 24, 2009 [id number] ABHILASH GARAY PATIENT [employer] FEP ([id number]) PRESCRIPT ION FEPRX Jun 24, 2009 [id number] [phone] ABHILASH GARAY PATIENT [employer] FEP BCBS PRESCRIPT ION CAREM ARK FEPRX PLAN Nov 21, 2021 [id number] ABHILASH GARAY PATIENT [employer] FEPRX PLAN PRESCRIPT ION CAREM ARK FEPRX Nov 21, 2021 [id number] ABHILASH GARAY PATIENT [employer]-F EP BCBS PRESCRIPT ION FEP CAREM ARK Nov 21, 2021 [id number] ABHILASH GARAY PATIENT [employer]-F EP BCBS PRESCRIPT ION FEP Jun 23, 2010 [id number] RUBI GARAYNETH PATIENT MEDICARE (WN) MEDICARE () PART A Feb 22, 2020 PART A [id number] ABHILASH GARAY PATIENT MEDICARE (WN) MEDICARE () PART A Feb 22, 2020 PART A [id number] ABHLIASH GARAY PATIENT MEDICARE (WNR) MEDICARE (M) PART A Feb 22, 2020 PART A [id number] [id number] ABHILASH GARAY PATIENT MEDICARE (WNR) MEDICARE (M) PART A Feb 22, 2020 PART A [id number] [id number] ABHILASH GARAY PATIENT MEDICARE (WNR) MEDICARE (M) PART A Feb 22, 2020 PART A [id number] ABHILASH GARAY PATIENT Selected Encounter This section includes the information on record at [place] for the Encounter. Date/Time Encounter Type Encounter Description Reason Provider Source Jan 08, 2024 01:00 PM EXERCISE CLASS HEALTH/WELLBEING SRVS ICD-10-CM Y93.42 Activity, PAT Yoder [place] IHE Encounter Template Text not used by [place] Assessments - Encounter Diagnoses This section includes the primary and secondary diagnoses documented for the Encounter. Date/Time Primary/Secondary Diagnosis Diagnosis Name Provider Source Jan 09, 2024 02:19 PM PRIMARY Activity, [facility] Plan of Treatment: Future Appointments [...] 09, 2024 11:00 AM [facility] [place] [facility] Jan 13, 2024 11:00 AM [facility] [place] [facility] Jan 14, 2024 03:00 PM AMBULATORY - REHAB MEDICIN [facility] Jan 21, 2024 03:00 PM AMBULATORY - REHAB MEDICIN [facility] Jan 28, 2024 11:00 AM [facility] [place] [facility] Jan 30, 2024 08:00 AM AMBULATORY - MEDICINE [place] Feb 02, 2024 02:00 PM AMBULATORY - MEDICINE [place] [facility] Feb 04, 2024 11:00 AM AMBULATORY - MEDICINE [place] [facility] Feb 09, 2024 11:30 AM AMBULATORY - MEDICINE [place] [facility] Feb 09, 2024 02:00 PM AMBULATORY - MEDICINE [place] [facility] Feb 19, 2024 01:00 PM AMBULATORY - MEDICINE [place] [facility] Feb 25, 2024 11:00 AM AMBULATORY - NONE [place] [facility] Mar 04, 2024 01:00 PM AMBULATORY - MEDICINE [place] [facility] Mar 09, 2024 01:00 PM AMBULATORY - MEDICINE [place] [facility] Mar 11, 2024 11:00 AM AMBULATORY - MEDICINE [place] [facility] Mar 15, 2024 12:15 PM AMBULATORY - MEDICINE [place] [facility] Mar 25, 2024 01:00 PM AMBULATORY - MEDICINE [place] [facility] Apr 06, 2024 10:30 AM AMBULATORY - MEDICINE [facility] Apr 07, 2024 03:30 PM AMBULATORY - NONE [place] [facility] Apr 08, 2024 01:00 PM AMBULATORY - MEDICINE [place] [facility] Social History: Smoking Status [...] 08, 2023 09:12 AM VA-TOBACCO NEVER USED [place] [facility] Tobacco Use History This section includes a history of the smoking, or tobacco-related health factors, that were collected on or before the date of the Encounter. The data comes from the [place] facility where the Encounter took place. Date/Time Smoking Status/Tobacco Use Comment F acility Aug 09, 2021 09:20 AM [place]-TOBACCO NEVER USED [facility] Encounter Notes: All associated encounter notes This section contains the clinical notes associated to the Encounter. Date/Time Encounter Note(s) Provider Source Jan 09, 2024 01:00 PM RECREATIONAL THERA PY NOTE: LOCAL TITLE: YOGA WELLBEING STANDARD TITLE: RECREATIONAL THERAPY NOTE DATE OF NOTE: JAN 09, 2024@13:00 ENTRY DATE: JAN 09, 2024@14:16:43 AUTHOR: MARY KATE MOORE COSIGNER: URGENCY: STATUS: [...] tree, triangle pose, wide leg forward bend, [place] 2, Extended Side Angle Pose, Intense Side Stretch, [place] 1, plank, cobra, locust, downward facing dog, wisdom pose, contralateral limb raises, head to knee pose, bridge, reclined twist, and knees to chest; Systematic Relaxation; and Gratitude. Modifications were geared toward the [place]'s individual needs and preferences. was one of nine participants in Group Yoga. He practiced all the postures offered, using a chair, yoga blocks, and a yoga strap for support as needed. He was attentive to his breath throughout the session. will return to class as his schedule allows. /yunior/ MARY KATE MOORE, [id number] Self Defense Instructor Signed: 01/09/2024 14:24 MARY KATE MOORE [facility]
--- OUTSIDE RECORDS SUMMARY | 2024-06-29 18:55 | XMS_ITS ---
Author Name [facility] [place] Address [address] [place] [address] Care Team Providers Care Jukebox Coin Collector Name Role Phone ABDIRAHMAN LAKE Primary [...] BASIC FAMIL Y Jun 24, 2009 [id number] [phone] ABHILASH GARAY PATIENT ANTHEM BCBS [place] F[place] PREFERRED PROVIDER ORGANIZAT ION (PPO) FEP BASIC FAM Jun 24, 2009 112 [id number] [phone] ABHILASH GARAY PATIENT ANTHEM BCBS [place] FEP PREFERRED PROVIDER ORGANIZAT ION (PPO) FEP BASIC FAM Jun 24, 2009 112 [id number] [phone] ABHILASH GARAY PATIENT [place] PREFERRED PROVIDER ORGANIZAT ION (PPO) FEP BASIC FAM Jun 24, 2009 112 [id number] [phone] ABHILASH GARAY PATIENT [place] PREFERRED PROVIDER ORGANIZAT ION (PPO) FEP BASIC FAM Jun 24, 2009 112 [id number] [phone] ABHILASH GAARY PATIENT [place]BS [place] PREFERRED PROVIDER ORGANIZAT ION (PPO) BASIC FAMIL Y Jun 24, 2009 [id number] ABHILASH GARAY PATIENT [place] PREFERRED PROVIDER ORGANIZAT ION (PPO) BASIC FAMIL Y Jun 24, 2009 [id number] ABHILASH GARAY PATIENT [place] PREFERRED PROVIDER ORGANIZAT ION (PPO) BASIC FAMIL Y Jun 24, 2009 [id number] ABHILASH GARAY PATIENT [place] F[place] DENTAL DENTAL INSURANCE BASIC Jul 12, 2009 DENTAL [id number] ABHILASH GARAY PATIENT [place] PREFERRED PROVIDER ORGANIZAT ION (PPO) BASIC FAMIL Y Jun 24, 2009 [id number] ABHILASH GARAY PATIENT [employer] FEP ([id number]) PRESCRIPT ION FEPRX Jun 24, 2009 [id number] [phone] ABHILASH GARAY PATIENT [place] FEP BCBS PRESCRIPT ION CAREM ARK FEPRX PLAN Nov 21, 2021 [id number] ABHILASH GARAY PATIENT [employer] FEPRX PLAN PRESCRIPT ION CAREM ARK FEPRX Nov 21, 2021 [id number] ABHILASH GARAY PATIENT [employer]-F EP BCBS PRESCRIPT ION FEP CAREM ARK Nov 21, 2021 [id number] ABHILASH GARAY PATIENT [employer]-F EP BCBS PRESCRIPT ION FEP Jun 23, 2010 [id number] ABHILASH GARAY PATIENT MEDICARE (WN) MEDICARE () PART A Feb 22, 2020 PART A [id number] ABHILASH GARAY PATIENT MEDICARE ([facility]) MEDICARE () PART A Feb 22, 2020 PART A [id number] ABHILASH GARAY PATIENT MEDICARE (WNR) MEDICARE (M) PART A Feb 22, 2020 PART A [id number] ABHILASH GARAY PATIENT MEDICARE (WNR) MEDICARE (M) PART A Feb 22, 2020 PART A [id number] [phone] ABHILASH GARAY PATIENT MEDICARE (WNR) MEDICARE (M) PART A Feb 22, 2020 PART A [id number] ABHILASH GARAY PATIENT Selected Encounter This section includes the information on record at [place] for the Encounter. Date/Time Encounter Type Encounter Description Reason Pro vider Source Jan 13, 2024 12:57 PM Outpatient Encounter PRIMARY CARE/MEDICINE IHE Encounter Template Text not used by [place] Plan of Treatment: Future Appointments (+ 6 months) and Future Tests (+/- 45 days) The Plan of Treatment section includes [facility] care [facility] for the [facility] [place] [facility] This section includes future appointments [...] 14, 2024 03:00 PM AMBULATORY - REHAB [facility] Jan 21, 2024 03:00 PM AMBULATORY - REHAB MEDICIN [facility] Jan 28, 2024 11:00 AM AM[place]ORY [place] [facility] Jan 30, 2024 08:00 AM AMBULATORY - MEDICINE [facility] Feb 02, 2024 02:00 PM AMBUL[place]ORY [place] [facility] Feb 04, 2024 11:00 AM AMBUL[place]ORY [place] [facility] Feb 09, 2024 11:30 AM AMB[place]ATORY [place] [facility] Feb 09, 2024 02:00 PM AM[place]ORY [place] [facility] Feb 19, 2024 01:00 PM AM[place]ORY [place] [facility] Feb 25, 2024 11:00 AM AMBULATORY - NONE [place] [facility] Mar 04, 2024 01:00 PM AMBULATORY - MEDICINE [place] [facility] Mar 09, 2024 01:00 PM AMBULATORY - MEDICINE [place] [facility] Mar 11, 2024 11:00 AM AMBULATORY [place]INE [place] [facility] Mar 15, 2024 12:15 PM AMBULATORY [place]ICINE [place] [facility] Mar 25, 2024 01:00 PM AMBULATORY - [place]ICINE [place] [facility] Apr 06, 2024 10:30 AM AM[facility]ULATORY - MEDICINE [facility] Apr 07, 2024 03:30 PM AMBULATORY - NONE [place] [facility] Apr 08, 2024 01:00 PM AMBULATORY [place]ICINE [place] [facility] Apr 12, 2024 11:00 AM AMBULATORY [place] [facility] Apr 15, 2024 10:00 AM AMBULATORY [place]IC[place] [facility] Social History: Smoking Status (Most [...] 08, 2023 09:12 AM [facility]TO[facility]ACCO [facility] Tobacco Use History This section includes a history of the smoking, or tobacco-related health factors, that were collected on or before the date of the Encounter. The data comes from the [place] facility where the Encounter took place. Date/Time Smoking Status/Tobacco Use Comment Gilberto boston Aug 09, 2021 09:20 AM [facility] Encounter Notes: All associated encounter notes This section contains the clinical notes associated to the Encounter. Date/Time Encounter Note(s) Provider Source Jan 13, 2024 12:57 PM PHYSICIAN NOTE: LOCAL TITLE: MD NOTE STANDARD TITLE: PHYSICIAN NOTE DATE OF NOTE: JAN 13, 2024@12:57 ENTRY DATE: JAN 13, 2024@12:57:19 AUTHOR: VESTA BLISS EXP COSIGNER: URGENCY: STATUS: COMPLETED I discussed with by phone at length about the results of MRI of the spine I informed him about the multilevel degenerative changes of the lumbar spine. About the right subarticular/foraminal disc protrusion at L4-5 crowding transversing right L5 nerve roots and moderately narrowing the right neural foramen with the flexion of the exiting right L4 nerve root . I offered to the [place] short course of steroids and I explained the need to follow-up with spine surgeon. he declined prednisone prescription but he is in agreement to see spine surgeon. The consult was placed /yunior/ VESTA BLISS MD PRIMARY CARE PHYSICIAN Signed: 01/13/2024 13:00 VESTA BLISS [place]
--- OUTSIDE RECORDS SUMMARY | 2024-06-29 18:55 | XMS_ITS ---
Author Name [facility] [place] [facility] [place] [facility] [place] [facility] [place] Address [address] [place] [address] Care Team Providers Care Adolescent Specialist Name Role Phone ABDIRAHMAN LAKE Primary [...] BASIC FAMIL Y Jun 24, 2009 112 [id number] [phone] ABHILASH GARAY PATIENT ANTHEM [place]BS [place] F[place] PREFERRED PROVIDER ORGANIZAT ION (PPO) FEP BASIC FAM Jun 24, 2009 112 [id number] [phone] ABHILASH GARAY PATIENT ANTHEM BCBS [place] F[place] PREFERRED PROVIDER ORGANIZAT ION (PPO) FEP BASIC FAM Jun 24, 2009 112 [id number] [phone] ABHILASH GAARY PATIENT ANTHEM [place] F[place] PREFERRED PROVIDER ORGANIZAT ION (PPO) FEP BASIC FAM Jun 24, 2009 112 [id number] [phone] ABHILASH GARAY PATIENT [place] F[place] PREFERRED PROVIDER ORGANIZAT ION (PPO) FEP BASIC FAM Jun 24, 2009 112 [id number] [phone] ABHILASH GARAY PATIENT BCBS [place] FEP PREFERRED PROVIDER ORGANIZAT ION (PPO) BASIC FAMIL Y Jun 24, 2009 [id number] ABHILASH GARAY PATIENT [place] PREFERRED PROVIDER ORGANIZAT ION (PPO) BASIC FAMIL Y Jun 24, 2009 112 [id number] [phone] ABHILASH GARAY PATIENT [place] F[place] PREFERRED PROVIDER ORGANIZAT ION (PPO) BASIC FAMIL Y Jun 24, 2009 112 [id number] ABHILASH GARAY PATIENT [place] FEP DENTAL DENTAL INSURANCE BASIC Jul 12, 2009 DENTAL [id number] ABHILASH GARAY PATIENT [place] F[place] PREFERRED PROVIDER ORGANIZAT ION (PPO) BASIC FAMIL Y Jun 24, 2009 112 [id number] ABHILASH GARAY PATIENT [employer] FEP ([id number]) PRESCRIPT ION FEPRX Jun 24, 2009 [id number] [phone] ABHILASH GARAY PATIENT [place] FEP BCBS PRESCRIPT ION CAREM ARK FEPRX PLAN Nov 21, 2021 [id number] ABHILASH GARAY PATIENT [employer] FEPRX PLAN PRESCRIPT ION CAREM ARK FEPRX Nov 21, 2021 [id number] ABHILASH GARAY PATIENT [employer]-F EP BCBS PRESCRIPT ION FEP CAREM ARK Nov 21, 2021 [id number] ABHILASH GARAY PATIENT [employer]-F EP BCBS PRESCRIPT ION FEP Jun 23, 2010 [id number] ABHLIASH GARAY PATIENT MEDICARE (WN) MEDICARE () PART A Feb 22, 2020 PART A [id number] [phone] ABHILASH GARAY PATIENT MEDICARE ([facility]) MEDICARE () PART A Feb 22, 2020 PART A [id number] ABHILASH GARAY PATIENT MEDICARE (WNR) MEDICARE (M) PART A Feb 22, 2020 PART A [id number] ABHILASH GARAY PATIENT MEDICARE (WNR) MEDICARE (M) PART A Feb 22, 2020 PART A [id number] [phone] ABHILASH GARAY PATIENT MEDICARE (WNR) MEDICARE (M) PART A Feb 22, 2020 PART A [id number] ABHILASH GARAY PATIENT Selected Encounter This section includes the information on record at [place] for the Encounter. Date/Time Encounter Type Encounter Description Reason Pro vider Source Dec 19, 2023 12:00 PM Outpatient Encounter COMMUNITY CARE CONSULT IHE Encounter Template Text not used by [place] Plan of Treatment: Future Appointments (+ 6 months) and Future Tests (+/- 45 days) The Plan of Treatment section includes [facility] care [facility] the [facility] [place] [facility] This section includes future appointments and future orders which are active, pending or scheduled. Future Appointments This section includes appointments that were scheduled to occur 6 months from the date of the Encounter, up to a maximum of 20 appointments. The data comes from all [place] treatment facilities. Appointment Date/Time Appointment Type Appointme nt Facility Name Dec 22, 2023 10:30 AM AMBULATORY - MEDICINE [facility] Dec 31, 2023 08:15 PM AMBULATORY - MEDICINE [facility] [place] [facility] Jan 01, 2024 01:00 PM AMBULATORY - MEDICINE [facility] [place] [facility] Jan 02, 2024 09:30 AM AMBULATORY - REHAB MEDICIN [facility] Jan 07, 2024 03:00 PM AMBULATORY - REHAB MEDICIN [facility] Jan 08, 2024 01:00 PM AMBULATORY - MEDICINE [facility] [place] [facility] Jan 09, 2024 11:00 AM AMBULATORY - MEDICINE [facility] [place] [facility] Jan 13, 2024 11:00 AM AMBULATORY - MEDICINE [facility] [place] [facility] Jan 14, 2024 03:00 PM AMBULATORY - REHAB MEDICIN [facility] Jan 21, 2024 03:00 PM AMBULATORY - [facility]AB MEDIC[facility] [place] Jan 28, 2024 11:00 AM [facility] [place] [facility] Jan 30, 2024 08:00 AM [facility] Feb 02, 2024 02:00 PM AMBULATORY - MEDICINE [facility] [place] [facility] Feb 04, 2024 11:00 AM AMBULATORY - MEDICINE [facility] [place] [facility] Feb 09, 2024 11:30 AM AMBULATORY - MEDICINE [facility] [place] [facility] Feb 09, 2024 02:00 PM AMBULATORY - MEDICINE [facility] [place] [facility] Feb 19, 2024 01:00 PM AMBULATORY - MEDICINE [facility] [place] [facility] Feb 25, 2024 11:00 AM AMBULATORY - NONE [facility] [place] [facility] Mar 04, 2024 01:00 PM AMBULATORY - MEDICINE [facility] [place] [facility] Mar 09, 2024 01:00 PM AMBULATORY - MEDICINE [facility] [place] [facility] Social History: Smoking Status (Most current) and Tobacco Use (All prior to encounter date) This section includes the most current, and the historical, smoking and tobacco- related health factors from the [place] facility where the Encounter took place. Current Smoking Status This section includes the most current smoking, or tobacco-related health factor, from the [place] facility where the Encounter took place. Date/Time Current Smoking Status Comment Odalis casey Apr 08, 2023 09:12 AM VA-TOBACCO NEVER USED [facility] Tobacco Use History This section includes a history of the smoking, or tobacco-related health factors, that were collected on or before the date of the Encounter. The data comes from the [place] facility where the Encounter took place. Date/Time Smoking Status/Tobacco Use Comment F acjaved Aug 09, 2021 09:20 AM VA-TOBACCO NEVER USED [place] [facility] Encounter Notes: All associated encounter notes This section contains the clinical notes associated to the Encounter. Date/Time Encounter Note(s) Provider Source Dec 19, 2023 12:00 PM NONVA CONSULT: LOCAL TITLE: COMMUNITY CARE-CONSULT RESULT NOTE STANDARD TITLE: NONVA CONSULT DATE OF NOTE: DEC 19, 2023@12:00 ENTRY DATE: JAN 12, 2024@12:39:28 AUTHOR: IFEANYI PARKER EXP COSIGNER: URGENCY: STATUS: COMPLETED VistA Imaging - Scanned Document SCANNED DOCUMENT SIGNATURE NOT REQUIRED Electronically Filed: 01/12/2024 by: IFEANYI BOYLE [facility]
--- OUTSIDE RECORDS SUMMARY | 2024-06-29 18:55 | XMS_ITS | Encounter Summary ---
Author Name [facility] [place] [facility] [place] [facility] [place] Address [address] [place] [address] Care Team Providers Care Plastic Products Sales Representative Name Role Phone ABDIRAHMAN LAKE Primary [...] BASIC FAMIL Y Jun 24, 2009 112 [id number] [phone] ABHILASH GARAY PATIENT ANTHEM [place]BS [place] PREFERRED PROVIDER ORGANIZAT ION (PPO) FEP BASIC FAM Jun 24, 2009 112 [id number] [phone] ABHILASH GARAY PATIENT ANTHEM [place] F[place] PREFERRED PROVIDER ORGANIZAT ION (PPO) FEP BASIC FAM Jun 24, 2009 112 [id number] [phone] ABHILASH GARAY PATIENT [place] PREFERRED PROVIDER ORGANIZAT ION (PPO) FEP BASIC FAM Jun 24, 2009 112 [id number] [phone] ABHILASH GARAY PATIENT [place] PREFERRED PROVIDER ORGANIZAT ION (PPO) FEP BASIC FAM Jun 24, 2009 112 [id number] [phone] RUBI GARAYNETH PATIENT [place]BS [place] FEP PREFERRED PROVIDER ORGANIZAT ION (PPO) BASIC FAMIL Y Jun 24, 2009 112 [id number] ABHILASH GARAY PATIENT [place] PREFERRED PROVIDER ORGANIZAT ION (PPO) BASIC FAMIL Y Jun 24, 2009 112 [id number] [phone] ABHILASH GARAY PATIENT [place] PREFERRED PROVIDER ORGANIZAT ION (PPO) BASIC FAMIL Y Jun 24, 2009 112 [id number] RUBI GARAYNETH PATIENT [place] F[place] DENTAL DENTAL INSURANCE BASIC Jul 12, 2009 DENTAL [id number] RUBI GARAYNETH PATIENT [place] F[place] PREFERRED PROVIDER ORGANIZAT ION (PPO) BASIC FAMIL Y Jun 24, 2009 [id number] ABHILASH GARAY PATIENT [employer] FEP ([id number]) PRESCRIPT ION FEPRX Jun 24, 2009 [id number] [phone] ABHILASH GARAY PATIENT [place] FEP BCBS PRESCRIPT ION CAR[place] ARK FEPRX PLAN Nov 21, 2021 [id number] ABHILASH GARAY PATIENT [employer] FEPRX PLAN PRESCRIPT ION CAR[place] ARK FEPRX Nov 21, 2021 [id number] ABHILASH GARAY PATIENT [employer]-F [place] BCBS PRESCRIPT ION FEP CAREM ARK Nov 21, 2021 [id number] ABHILASH GARAY PATIENT [place]-F EP BCBS PRESCRIPT ION FEP Jun 23, 2010 [id number] ABHILASH GARAY PATIENT MEDICARE (WN) MEDICARE (M) PART A Feb 22, 2020 PART A [id number] ABHILASH GARAY PATIENT MEDICARE ([facility]) MEDICARE (M) PART A Feb 22, 2020 PART A [id number] [id number] ABHILASH GARAY PATIENT MEDICARE (WNR) MEDICARE (M) PART A Feb 22, 2020 PART A [id number] ABHILASH GARAY PATIENT MEDICARE (WNR) MEDICARE (M) PART A Feb 22, 2020 PART A [id number] [phone] ABHILASH GARAY PATIENT MEDICARE (WNR) MEDICARE (M) PART A Feb 22, 2020 PART A [id number] [id number] [phone] ABHILASH GARAY PATIENT Selected Encounter This section includes the information on record at [place] for the Encounter. Date/Time Encounter Type Encounter Description Reason Provider Source Jan 09, 2024 11:00 AM OFFICE O/P NEW MOD 45 MIN [facility] DIRECTOR ICD-10-CM M54.59 Other low back pain ARTHUR EUGENE [facility] Encounter Template Text not used by [place] Assessments - Encounter Diagnoses This section includes the primary and secondary diagnoses documented for the Encounter. Date/Time Primary/Secondary Diagnosis Diagnosis Name Provider Source Jan 09, 2024 12:54 PM PRIMARY Other low back pain JABIERARTHUR REY [facility] Plan of Treatment: Future [...] - MEDICINE [facility] NERISSA [facility] Jan 14, 2024 03:00 PM AMBULATORY - REHAB MEDICIN [facility] Jan 21, 2024 03:00 PM AMBULATORY - REHAB MEDICIN [facility] Jan 28, 2024 11:00 AM AMBULATORY - MEDICINE [facility] Jan 30, 2024 08:00 [...] [place] [facility] Feb 09, 2024 02:00 PM AMBULATORY - MEDICINE [facility] [place] [facility] Feb 19, 2024 01:00 PM AMBULATORY - MEDICINE [facility] [place] [facility] Feb 25, 2024 11:00 AM AMBULATORY - NONE [facility] [place] [facility] Mar 04, 2024 01:00 PM AMBULATORY - MEDICINE [facility] [place] [facility] Mar 09, 2024 01:00 PM AMBULATORY - MEDICINE [facility] [place] [facility] Mar 11, 2024 11:00 AM AMBULATORY - MEDICINE [facility] [place] [facility] Mar 15, 2024 12:15 PM AMBULATORY - MEDICINE [facility] [place] [facility] Mar 25, 2024 01:00 PM AMBULATORY - MEDICINE [facility] [place] [facility] Apr 06, 2024 10:30 AM [facility] Apr 07, 2024 03:30 PM AMBULATORY - NONE [facility] [place] [facility] Apr 08, 2024 01:00 PM AMBULATORY - MEDICINE [facility] [place] [facility] Apr 12, 2024 11:00 AM [...] 2023 09:12 AM VA-TOBACCO NEVER USED [facility] [place] [facility] Tobacco Use History This section includes a history of the smoking, or tobacco-related health factors, that were collected on or before the date of the Encounter. The data comes from the [place] facility where the Encounter took place. Date/Time Smoking Status/Tobacco Use Comment F acility Aug 09, 2021 09:20 AM VA-TOBACCO NEVER USED [facility] [place] [facility] Encounter Notes: All associated encounter notes This section contains the clinical notes associated to the Encounter. Date/Time Encounter Note(s) Provider Source Jan 09, 2024 11:24 AM CHIROPRACTIC CONSU LT: LOCAL TITLE: CONSULT REPORT/CHIROPRACTOR STANDARD TITLE: CHIROPRACTIC CONSULT DATE OF NOTE: JAN 09, 2024@11:24 ENTRY DATE: JAN 09, 2024@11:24:36 AUTHOR: ARTHUR EUGENE COSIGNER: URGENCY: STATUS: COMPLETED ABHILASH GARAY is a 68 WHITE MALE with prior history of COMBAT SERVICE INDICATED: No POS: PERIOD OF SERVICE - OTHER OR NONE SERVICE BRANCH: [employer] Service Connected Disabilities with % Eligibility: Active Problem CLBP - chronic low back pain M54.50 12/22/2023 VESTA BLISS Primary malignant neoplasm of skin 01/24/2023 GREGG [...] THOMPSON CARRANZA Onychomycosis of toenails B35.1 12/04/2016 THOMPSON CARRANZA Low back pain M54.5 05/23/2016 GREGG HARMON Scoliosis M41.9 05/23/2016 GREGG HARMON Gastroesophageal reflux disease K21 05/11/2015 GRGEG HARMON Thyroid nodule E04.1 05/11/2015 GREGG HARMON [...] HARMON HYPERLIPIDEMIA NEC/NOS 272.4 11/26/2010 GREGG HARMON Past Surgeries: HX kidney stones for which he sought urgent care . He states that the stones are diet related. He takes Potasium citrate HX varicose vein surgery Patient [facility] [place] [facility] with C/C pain in left gluteal and right upper lumbar lower thoracic He/she describes the pain as an ache intermittent Vet rates the pain average on the NPRS 4/5 Onset: years ago and no known trauma; fractured R large toe during service Palliative: Yoga helps temporarily; Acupuncture helps a little; resting but lying down can exacerbates Provocative: walking from here to his car; sitting >5-10 minutes. He uses a walker for long distances His feet fall asleep, due to neuropathy Timing: good in mornings and worse end of day Prior treatment: [facility] Physical therapy currently. 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 He would like to join [employer] A man in his Yoga class told him about Massage therapy Emily does Yoga twice weekly at this [place] GOALS: do more physical activity - longer walking He C/O pain/ache in both knees December 31, 2023 [facility] MRI Lumbar spine Pertinent Imaging: Reviewed Radiologist's report MRI lumbar about a week ago in [place] Multi level degenerative changes of the lumbar spine Most prominently, a R subarticular foraminal disc protrusion at L4-5 crowding the traversing R L5 nerve roots and moderately narrowing the R neural foramen with deflection of the exiting R L4 nerve root. Non specific edema in subcutaneous fat of lower back Mild fatty atrophy of posterior paraspinal mm. Patient denies bowel/bladder dysfunction saddle anesthesia, recent fevers, infections, night sweats, unexplained weight loss, dysphagia, dysarthria, numbness, diploplia EXAM Patient enters clinic FWB without need of assistive device - without signs of acute distress, antalgia, or gait alteration Patient appears to be well nourished, is well groomed, pleasant, cooperative in NAD, gait and station unremarkable. AAOx3, speech is fluent. Weldon's: Neg bilat Rhombergs no sway General exam findings Cursory PE demonstrates no acute or emergent health conditions. No signs of acute pulmonary distress, breathing is steady and non-labored. No distal edema or signs of peripheral circulatory distress. No saddle paresthesia and no acute bowel or bladder dysfunction. Active LUMBAR ROM limited and provocative into: the following Extension Lateral Bending R Rotation Motor strength graded 5/5 hip flexion 5/5 5/5 knee extension 5/5 5/5 foot dorsifexion 5/5 5/5 foot inversion 5/5 5/5 foot eversion 5/5 5/5 L4-S1 (B) DTR's at L4 & S1 1+ on left patella; 0 on right and 0 at achilles Sensation grossly intact to light touch L4-S1 (B) No clonus appreciated upon ankle dorsiflexion. Denies calf tenderness (B) Lumbar Orthopedic testing: Valsalva Maneuver: Neg Seated Dural Tension Test neg SLR/seated slump pos Kemps pos Prone knee bending Neg SI provocation testing pos on left Fabere's neg Direct S-I palpation pos Observe Scoliosis Soft tissue palpation reveals hypertonicity and tenderness R gluteals, R L/S sp and lumbar paraspinals. Motion palpation reveals intersegmental lumbar somatic dysfunction with relative joint hypomobility. IMPRESSION: It is reasonable in this case to apply a conservative course of manual therapy to address myofascial and joint findings while encouraging activity and stretching specific to the patient's presentation. PLAN: Treatment #1. I explained all of this to the patient and the patient seemed to understand. Treatment options from least invasive to most with the associated risks, benefits, alternatives, and potential outcomes were discussed in detail. Potential risks associated with spinal manipulative therapy, the following were shared with the patient: Likely (transient mild post-treatment soreness); Less Likely (Bruising, sprain/strain); Rare but potentially serious (disc herniation, fracture); Extremely Rare but serious (epidural spinal hematoma, cauda equina syndrome). Informed consent obtained to provide management consisting of: ~ Lumbar F/D decompression manipulation with the intended goal of the reduction of LBP and limitations related to LBP through the mechanical action of lumbar flexion with a gentle distractive force. ~ MFR as per palpation (10 minutes) ~ Mobilization/SMT to Cervical, Thoracic, and/or Lumbar and S-I regions in lateral decubitus posture ~ Prone or supine thoracic mobilization/SMT ~ Prone hip flexor/quadriceps stretching as per palpation ~ Supine gluteal stretching as per palpation Treatment: active/corrective Side lying massage therapy CMT low force AT lumbar Treatment carried out today and well tolerated The prognosis,at this time,is fair to good Plan: Consult was placed to Community Massage therapy by PCP Prior to start of Community Massage - Trial 2 visits in [place] Ch[place] clinic for massage to lumbar, thoracic spine in side lying position. Low force adjustment with AT only. Patient can not lie prone w/o incr pain. Tried changing tilt of table which did not help. HVLA CMT is contraindicated due to evidence from MRI Short term goals include improvement in excess 25% on regional disability questionnaire and/or NRS over the first 3-4 treatment visits. It was explained to the patient that resolution of soft tissue complaints through conservative management requires compliance with at home recommendationsand avoidance of aggravating factors. Self-Care Recommendations: Patient agreed to a Consult to Cylinder Block Mechanic. continue Yoga ~Patient encouraged to engage in activities such as a walking program with established goals to reduce fear-avoidance behaviors with regard to movement,and improve overall health and fitness. emphasis placed upon function over pain with effort made each day to remain active understanding that normal daily activities may temporarily increase pain experience but are not inherently injurious and should be explored to the extent possible. Provided patient with Yoga flyer ~ Activity such as Yoga encouraged to enhance relaxation, flexibility, posture, core stability, balance, and pain modulation. Visit 1 F/U 2 visits Seek urgent care as needed. CMT: chiropractic manipulative therapy SMT: Spinal Manipulative Therapy F/D: Flexion Distraction MFR: Myofascial Release S-I: Sacroiliac MFTP: Myofascial Trigger Point NRS: Numeric Rating Scale N/T: Numbness/Tingling PIR: Post isometric relaxation /es/ ARTHUR EUGENE [facility] CHIROPRACTOR Signed: 01/09/2024 14:27 ARTHUR EUGENE [facility]
--- OUTSIDE RECORDS SUMMARY | 2024-06-29 18:56 | XMS_ITS ---
Author Name [facility] [place] Address [address] [place] [address] Care Team Providers Care Mixer Operator Hot Metal Name Role Phone ABDIRAHMAN LAKE Primary Care [...] BASIC FAMIL Y Jun 24, 2009 112 [id number] [phone] ABHILASH GARAY PATIENT ANTHEM [place]BS [place] F[place] PREFERRED PROVIDER ORGANIZAT ION (PPO) FEP BASIC FAM Jun 24, 2009 112 [id number] [phone] ABHILASH GARAY PATIENT ANTHEM BCBS [place] F[place] PREFERRED PROVIDER ORGANIZAT ION (PPO) FEP BASIC FAM Jun 24, 2009 112 [id number] [phone] ABHILASH GARAY PATIENT [place]THEM [place] PREFERRED PROVIDER ORGANIZAT ION (PPO) FEP BASIC FAM Jun 24, 2009 112 [id number] [phone] ABHILASH GARAY PATIENT [place]BS [place] F[place] PREFERRED PROVIDER ORGANIZAT ION (PPO) FEP BASIC FAM Jun 24, 2009 112 [id number] [phone] ABHILASH GARAY PATIENT [place]BS [place] F[place] PREFERRED PROVIDER ORGANIZAT ION (PPO) BASIC FAMIL Y Jun 24, 2009 112 [id number] ABHILASH GARAY PATIENT [place] PREFERRED PROVIDER ORGANIZAT ION (PPO) BASIC FAMIL Y Jun 24, 2009 112 [id number] ABHILASH GARAY PATIENT [place] PREFERRED PROVIDER ORGANIZAT ION (PPO) BASIC FAMIL Y Jun 24, 2009 112 [id number] [phone] ABHILASH GARAY PATIENT [place] FEP DENTAL DENTAL INSURANCE BASIC Jul 12, 2009 DENTAL [id number] ABHILASH GARAY PATIENT [place] FEP PREFERRED PROVIDER ORGANIZAT ION (PPO) BASIC FAMIL Y Jun 24, 2009 112 [id number] ABHILASH GARAY PATIENT [employer] FEP ([id number]) PRESCRIPT ION FEPRX Jun 24, 2009 [id number] [phone] ABHILASH GARAY PATIENT [place] FEP BCBS PRESCRIPT ION CAREM ARK FEPRX PLAN Nov 21, 2021 [id number] ABHILASH GARAY PATIENT [place] FEPRX PLAN PRESCRIPT ION CAREM ARK FEPRX Nov 21, 2021 [id number] ABHILASH GARAY PATIENT [place]-F EP BCBS PRESCRIPT ION FEP CAREM ARK Nov 21, 2021 [id number] ABHILASH GARAY PATIENT [place]-F EP BCBS PRESCRIPT ION FEP Jun 23, 2010 [id number] ABHILASH GARAY PATIENT MEDICARE (WN) MEDICARE () PART A Feb 22, 2020 PART A [id number] [phone] ABHILASH GARAY PATIENT MEDICARE ([facility]) MEDICARE () PART A Feb 22, 2020 PART A [id number] [phone] ABHILASH GARAY PATIENT MEDICARE (WNR) MEDICARE (M) PART A Feb 22, 2020 PART A [id number] ABHILASH GARAY PATIENT MEDICARE (WNR) MEDICARE (M) PART A Feb 22, 2020 PART A [id number] [phone] ABHILASH GARAY PATIENT MEDICARE (WNR) MEDICARE (M) PART A Feb 22, 2020 PART A [id number] ABHILASH GARAY PATIENT Selected Encounter This section includes the information on record at [place] for the Encounter. Date/Time Encounter Type Encounter Description Reason Pro vider Source Sep 26, 2023 12:00 AM Outpatient Encounter EVENT (HISTORICAL) [...] 29, 2023 11:00 AM AMBULATORY [place]ICINE [place] [facility] [place] [facility] Oct 02, 2023 01:00 PM AMBULATORY - MEDICINE [place] [facility] [place] [facility] Oct 06, 2023 11:00 AM AMBULATORY - MEDICINE [place] [facility] [place] [facility] Oct 06, 2023 12:40 PM AMBULATORY - MEDICINE [place] [facility] [place] [facility] Oct 09, 2023 01:00 PM AMBULATORY - MEDICINE [place] [facility] [place] [facility] Oct 13, 2023 11:00 AM AMBULATORY - MEDICINE [place] [facility] [place] [facility] Oct 16, 2023 01:00 PM AMBULATORY - MEDICINE [place] [facility] [place] [facility] Oct 20, 2023 11:00 AM AMBULATORY - MEDICINE [place] [facility] [place] [facility] October 23, 2023 01:00 PM AM[facility]ULATORY [facility]ICINE [place] [facility] [place] [facility] October 27, 2023 11:00 AM AMBULATORY - MEDICINE [facility] [place] [facility] November 03, 2023 11:00 AM AMBULATORY - MEDICINE [facility] [place] [facility] November 03, 2023 01:00 PM AMBULATORY - MEDICINE [facility] [place] [facility] November 06, 2023 01:00 PM AMBULATORY - MEDICINE [facility] [place] [facility] November 06, 2023 02:00 PM AMBULATORY - MEDICINE [facility] [place] [facility] November 10, 2023 11:00 AM AMBULATORY - MEDICINE [facility] [place] [facility] November 13, 2023 10:30 AM AMBULATORY - MEDICINE [facility] [place] [facility] November 18, 2023 11:00 AM AMBULATORY - MEDICINE [facility] [place] [facility] November 20, 2023 10:30 AM AMBULATORY - MEDICINE [place] [facility] [place] [facility] November 20, 2023 01:00 PM AMBULATORY - MEDICINE [place] [facility] [place] [facility] Nov 27, 2023 02:00 PM [facility] Social History: Smoking Status (Most current) and [...] 08, 2023 09:12 AM VA-TOBACCO NEVER USED [facility] Tobacco Use History This section includes a history of the smoking, or tobacco-related health factors, that were collected on or before the date of the Encounter. The data comes from the [place] facility where the Encounter took place. Date/Time Smoking Status/Tobacco Use Comment F acjaved Aug 09, 2021 09:20 AM VA-TOBACCO NEVER USED [facility]
--- OUTSIDE RECORDS SUMMARY | 2024-06-29 18:56 | XMS_ITS ---
Author Name [facility] [place] [facility] [place] [facility] [place] Address [address] [place] [address] Care Team Providers Care Tanner Rotary Drum Continuous Process Name Role Phone ABDIRAHMAN LAKE Primary Care [...] BASIC FAMIL Y Jun 24, 2009 112 [id number] [phone] ABHILASH GARAY PATIENT ANTHEM BCBS [place] F[place] PREFERRED PROVIDER ORGANIZAT ION (PPO) FEP BASIC FAM Jun 24, 2009 112 [id number] [phone] ABHILASH GARAY PATIENT ANTHEM [place] F[place] PREFERRED PROVIDER ORGANIZAT ION (PPO) FEP BASIC FAM Jun 24, 2009 112 [id number] [phone] ABHILASH GARAY PATIENT [place] PREFERRED PROVIDER ORGANIZAT ION (PPO) FEP BASIC FAM Jun 24, 2009 112 [id number] [phone] ABHILASH GARAY PATIENT [place] PREFERRED PROVIDER ORGANIZAT ION (PPO) FEP BASIC FAM Jun 24, 2009 112 [id number] [phone] ABHILASH GARAY PATIENT [place]BS [place] F[place] PREFERRED PROVIDER ORGANIZAT ION (PPO) BASIC FAMIL Y Jun 24, 2009 112 [id number] ABHILASH GARAY PATIENT [place] PREFERRED PROVIDER ORGANIZAT ION (PPO) BASIC FAMIL Y Jun 24, 2009 [id number] ABHILASH GARAY PATIENT [place] PREFERRED PROVIDER ORGANIZAT ION (PPO) BASIC FAMIL Y Jun 24, 2009 112 [id number] [phone] ABHILASH GARAY PATIENT [place] F[place] DENTAL DENTAL INSURANCE BASIC Jul 12, 2009 DENTAL [id number] ABHILASH GARAY PATIENT [place] PREFERRED PROVIDER ORGANIZAT ION (PPO) BASIC FAMIL Y Jun 24, 2009 [id number] ABHILASH GARAY PATIENT [employer] FEP ([id number]) PRESCRIPT ION FEPRX Jun 24, 2009 [id number] [phone] ABHILASH GARAY PATIENT [place] FEP BCBS PRESCRIPT ION CAREM ARK FEPRX PLAN Nov 21, 2021 [id number] ABHILASH GARAY PATIENT [place] FEPRX PLAN PRESCRIPT ION CAREM ARK FEPRX Nov 21, 2021 [id number] ABHILASH GARAY PATIENT [employer]-F EP BCBS PRESCRIPT ION FEP CAREM ARK Nov 21, 2021 [id number] ABHILASH GARAY PATIENT [place]-F EP BCBS PRESCRIPT ION FEP Jun 23, 2010 [id number] RUBI GARAYNETH PATIENT MEDICARE (WN) MEDICARE () PART A Feb 22, 2020 PART A [id number] ABHILASH GARAY PATIENT MEDICARE (WN) MEDICARE () PART A Feb 22, 2020 PART A [id number] ABHILASH GARAY PATIENT MEDICARE (WNR) MEDICARE (M) PART A Feb 22, 2020 PART A [id number] ABHILASH GARAY PATIENT MEDICARE (WNR) MEDICARE (M) PART A Feb 22, 2020 PART A [id number] ABHILASH GARAY PATIENT MEDICARE (WNR) MEDICARE (M) PART A Feb 22, 2020 PART A [id number] ABHILASH GARAY PATIENT Selected Encounter This section includes the information on record at [place] for the Encounter. Date/Time Encounter Type Encounter Description Reason Provider Source Sep 16, 2023 11:00 AM EXERCISE CLASS HEALTH/WELLBEING SRVS ICD-10-CM Y93.42 Activity, PAT Yoder [place] IHE Encounter Template Text not used by [place] Assessments - Encounter Diagnoses This section includes the primary and secondary diagnoses documented for the Encounter. Date/Time Primary/Secondary Diagnosis Diagnosis Name Provider Source Sep 16, 2023 02:50 PM PRIMARY Activity, PEDRO Yoder [facility] [place] [facility] Plan of Treatment: Future Appointments [...] 29, 2023 11:00 AM AMBULATORY - MEDICINE [place] [facility] [place] [facility] Oct 02, 2023 01:00 PM AMBULATORY - MEDICINE [place] [facility] [place] [facility] Oct 06, 2023 11:00 AM AMBULATORY - MEDICINE [place] [facility] [place] [place] [facility] Oct 06, 2023 12:40 PM AMBULATORY - MEDICINE [place] [facility] [place] [place] [facility] Oct 09, 2023 01:00 PM AMBULATORY - MEDICINE [place] [facility] [place] [place] [facility] Oct 13, 2023 11:00 AM AMBULATORY - MEDICINE [place] [facility] [place] [facility] Oct 16, 2023 01:00 PM AMBULATORY - MEDICINE [facility] [place] [facility] Oct 20, 2023 11:00 AM AMBULATORY - MEDICINE [facility] [place] [facility] October 23, 2023 01:00 PM AMBULATORY - MEDICINE [facility] [place] [facility] October 27, 2023 11:00 AM AMBULATORY - MEDICINE [facility] [place] [facility] November 03, 2023 11:00 AM AMBULATORY - MEDICINE [facility] [place] [facility] November 03, 2023 01:00 PM AMBULATORY - MEDICINE [facility] [place] [facility] November 06, 2023 01:00 PM AMBULATORY - MEDICINE [facility] [place] [facility] November 06, 2023 02:00 PM AMBULATORY - MEDICINE [facility] [place] [facility] November 10, 2023 11:00 AM AMBULATORY - MEDICINE [place] [facility] [place] [facility] November 13, 2023 10:30 AM AMBULATORY - MEDICINE [facility] [place] [facility] November 18, 2023 11:00 AM AMBULATORY - MEDICINE [facility] [place] [facility] November 20, 2023 10:30 AM AMBULATORY - MEDICINE [facility] [place] [facility] November 20, 2023 01:00 PM AMBULATORY - MEDICINE [place] [facility] [place] [facility] Nov 27, 2023 02:00 PM AMBULATORY - MEDICINE [facility] Social History: Smoking Status (Most [...] VA-TOBACCO NEVER USED [facility] [place] [facility] Tobacco Use History This section includes a history of the smoking, or tobacco-related health factors, that were collected on or before the date of the Encounter. The data comes from the [place] facility where the Encounter took place. Date/Time Smoking Status/Tobacco Use Comment Gilberto boston Aug 09, 2021 09:20 AM [place]-TOBACCO NEVER USED [facility] Encounter Notes: All associated encounter notes This section contains the clinical notes associated to the Encounter. Date/Time Encounter Note(s) Provider Source Sep 16, 2023 12:00 PM RECREATIONAL THERA PY NOTE: LOCAL TITLE: YOGA WELLBEING STANDARD TITLE: RECREATIONAL THERAPY NOTE DATE OF NOTE: SEP 16, 2023@12:00 ENTRY DATE: SEP 16, 2023@14:46:23 AUTHOR: MARY KATE MOORE EXP COSIGNER: URGENCY: [...] tree, triangle pose, wide leg forward bend, [place] 2, Extended Side Angle Pose, Intense Side Stretch, [place] 1, plank, cobra, locust, downward facing dog, wisdom pose, contralateral limb raises, head to knee pose, bridge, reclined twist, and knees to chest; Systematic Relaxation; and Gratitude. Modifications were geared toward the 's individual needs and preferences. [place] was one of thirteen participants in Group Yoga. He fully participated in all the postures offered, modifying according to his needs. He practiced excellent self-care and used his breath as a tool to enhance his practice. He will return to class as his schedule allows. /yunior/ MARY KATE MOORE, [id number] [place] Signed: 09/16/2023 15:00 MARY KATE MOORE [facility]
--- OUTSIDE RECORDS SUMMARY | 2024-06-29 18:56 | XMS_ITS | Encounter Summary ---
Author Name [facility] [place] Address [address] [place] [address] Care Team Providers Care Under Presser Name Role Phone ABDIRAHMAN [place] Primary [...] BASIC FAMIL Y Jun 24, 2009 [id number] [phone] ABHILASH GARAY PATIENT ANTHEM BCBS [place] FEP PREFERRED PROVIDER ORGANIZAT ION (PPO) FEP BASIC FAM Jun 24, 2009 112 [id number] [phone] ABHILASH GARAY PATIENT ANTHEM BCBS [place] F[place] PREFERRED PROVIDER ORGANIZAT ION (PPO) FEP BASIC FAM Jun 24, 2009 112 [id number] [phone] ABHILASH GARAY PATIENT [place] PREFERRED PROVIDER ORGANIZAT ION (PPO) FEP BASIC FAM Jun 24, 2009 112 [id number] [phone] ABHILASH GARAY PATIENT [place] PREFERRED PROVIDER ORGANIZAT ION (PPO) FEP BASIC FAM Jun 24, 2009 112 [id number] [phone] ABHILASH GARAY PATIENT BCBS [place] FEP PREFERRED PROVIDER ORGANIZAT ION (PPO) BASIC FAMIL Y Jun 24, 2009 [id number] ABHILASH GARAY PATIENT [place] F[place] PREFERRED PROVIDER ORGANIZAT ION (PPO) BASIC FAMIL Y Jun 24, 2009 [id number] ABHILASH GARAY PATIENT [place] PREFERRED PROVIDER ORGANIZAT ION (PPO) BASIC FAMIL Y Jun 24, 2009 [id number] ABHILASH GARAY PATIENT [place] F[place] DENTAL DENTAL INSURANCE BASIC Jul 12, 2009 DENTAL [id number] ABHILASH GARAY PATIENT [place] F[place] PREFERRED PROVIDER ORGANIZAT ION (PPO) BASIC FAMIL Y Jun 24, 2009 [id number] [phone] ABHILASH GARAY PATIENT [employer] FEP ([id number]) PRESCRIPT ION FEPRX Jun 24, 2009 [id number] [phone] ABHILASH GARAY PATIENT [place] FEP BCBS PRESCRIPT ION CAREM ARK FEPRX PLAN Nov 21, 2021 [id number] ABHILASH GARAY PATIENT [employer] FEPRX PLAN PRESCRIPT ION CAREM ARK FEPRX Nov 21, 2021 [id number] ABHILASH GARAY PATIENT [employer]-F EP BCBS PRESCRIPT ION FEP CAREM ARK Nov 21, 2021 [id number] ABHILASH GARAY PATIENT [employer]-F EP BCBS PRESCRIPT ION FEP Jun 23, 2010 [id number] RUBI GARAYNETH PATIENT MEDICARE (WN) MEDICARE () PART A Feb 22, 2020 PART A [id number] ABHILASH GARAY PATIENT MEDICARE (WN) MEDICARE () PART A Feb 22, 2020 PART A [id number] ABHILASH GARAY PATIENT MEDICARE (WNR) MEDICARE (M) PART A Feb 22, 2020 PART A [id number] ABHILASH GARAY PATIENT MEDICARE (WNR) MEDICARE (M) PART A Feb 22, 2020 PART A [id number] NV71 [id number] ABHILASH GARAY PATIENT MEDICARE (WNR) MEDICARE (M) PART A Feb 22, 2020 PART A [id number] ABHILASH GARAY PATIENT Selected Encounter This section includes the information on record at [place] for the Encounter. Date/Time Encounter Type Encounter Description Reason Provider Source Jan 15, 2024 01:00 PM EXERCISE CLASS HEALTH/WELLBEING SRVS ICD-10-CM Y93.42 Activity, PAT Yoder IHFran Encounter Template Text not used by [place] Assessments - Encounter Diagnoses This section includes the primary and secondary diagnoses documented for the Encounter. Date/Time Primary/Secondary Diagnosis Diagnosis Name Provider Source Jan 15, 2024 02:52 PM PRIMARY Activity, PEDRO Yoder [facility] [place] [facility] Plan of Treatment: Future Appointments (+ 6 months) and Future Tests (+/- 45 days) The Plan of Treatment section includes future care activities for the patient from all [place] treatmentfacilities. This section includes future appointments and future orders which are active, pending or scheduled. Future Appointments This section includes appointments that were scheduled to occur 6 months from the date of the Encounter, up to a maximum of 20 appointments. The data comes from all [place] treatment facilities. Appointment Date/Time Appointment Type Appointme nt Facility Name Jan 21, 2024 03:00 PM AMBULATORY - [place]HAB MEDIC[facility] [place] Jan 28, 2024 11:00 AM AMBULATORY - MEDICINE [facility] [place] [facility] Jan 30, 2024 08:00 AM AMBULATORY - MEDICINE [facility] Feb 02, 2024 02:00 PM AMBULATORY - MEDICINE [facility] [place] [facility] Feb 04, 2024 11:00 AM AMBULATORY - MEDICINE [facility] [place] [facility] Feb 09, 2024 11:30 AM AM[facility]ULATORY [facility]ICINE [facility] [place] [facility] Feb 09, 2024 02:00 PM AMBULATORY - MEDICINE [facility] [place] [facility] Feb 19, 2024 01:00 PM AMBULATORY - MEDICINE [facility] [place] [facility] Feb 25, 2024 11:00 AM AMBULATORY - NONE [facility] [place] [place] [facility] Mar 04, 2024 01:00 PM AMBULATORY - MEDICINE [facility] [place] [facility] Mar 09, 2024 01:00 PM AMBULATORY - MEDICINE [facility] [place] [facility] Mar 11, 2024 11:00 AM AMBULATORY - MEDICINE [facility] [place] [facility] Mar 15, 2024 12:15 PM AMBULATORY - MEDICINE [facility] [place] [facility] Mar 25, 2024 01:00 PM AMBULATORY - MEDICINE [facility] [place] [facility] Apr 06, 2024 10:30 AM [facility] Apr 07, 2024 03:30 PM AMBULATORY - NONE [facility] [place] [facility] Apr 08, 2024 01:00 PM AMBULATORY - MEDICINE [facility] [place] [facility] Apr 12, 2024 11:00 AM AMBULATORY - MEDICINE [facility] [place] [facility] Apr 15, 2024 10:00 AM AMBULATORY - MEDICINE [facility] [place] [facility] Apr 19, 2024 11:00 AM AMBULATORY - MEDICINE [facility] [place] [facility] Social History: Smoking Status (Most current) and Tobacco Use (All prior to encounter date) This section includes the most current, and the historical, smoking and tobacco- related health factors from the [place] facility where the Encounter took place. Current Smoking Status This section includes the most current smoking, or tobacco-related health factor, from the [place] facility where the Encounter took place. Date/Time Current Smoking Status Comment Odalis casey Apr 08, 2023 09:12 AM [facility]-TOBACCO [facility] USED [facility] Tobacco Use History This section includes a history of the smoking, or tobacco-related health factors, that were collected on or before the date of the Encounter. The data comes from the [place] facility where the Encounter took place. Date/Time Smoking Status/Tobacco Use Comment F darvin Aug 09, 2021 09:20 AM [place]-TOBACCO NEVER USED [place] [facility] Encounter Notes: All associated encounter notes This section contains the clinical notes associated to the Encounter. Date/Time Encounter Note(s) Provider Source Jan 15, 2024 01:00 PM RECREATIONAL THERA PY NOTE: LOCAL TITLE: YOGA WELLBEING STANDARD TITLE: RECREATIONAL THERAPY NOTE DATE OF NOTE: JAN 15, 2024@13:00 ENTRY DATE: JAN 15, 2024@14:48:11 AUTHOR: MARY KATE MOORE COSIGNER: URGENCY: STATUS: [...] tree, triangle pose, wide leg forward bend, [place] 2, Extended Side Angle Pose, Intense Side Stretch, [place] 1, plank, cobra, locust, downward facing dog, wisdom pose, contralateral limb raises, head to knee pose, bridge, reclined twist, and knees to chest; Systematic Relaxation; and Gratitude. Modifications were geared toward the 's individual needs and preferences. was one of seven participants in Group Yoga. He fully participated, practicing all the postures offered and modifying according to his needs. He practiced excellent self- care and used his breath as a tool to enhance his practice. He will return to class as his schedule allows. /yunior/ NINO [id number] Stone Hand Signed: 01/15/2024 14:54 MARY KATE MOORE [place] [facility]
--- OUTSIDE RECORDS SUMMARY | 2024-06-29 18:56 | XMS_ITS | Encounter Summary ---
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 Name Role Phone ABDIRAMHAN LAKE Primary Care Provider Unavailenrrique wilkes Insurance [...] BASIC FAMIL Y Jun 24, 2009 [id number] [phone] ABHILASH GARAY PATIENT ANTHEM BCBS [place] PREFERRED PROVIDER ORGANIZAT ION (PPO) FEP BASIC FAM Jun 24, 2009 112 [id number] [phone] ABHILASH GARAY PATIENT ANTHEM [place]BS [place] PREFERRED PROVIDER ORGANIZAT ION (PPO) FEP BASIC FAM Jun 24, 2009 112 [id number] [phone] ABHILASH GARAY PATIENT [place] PREFERRED PROVIDER ORGANIZAT ION (PPO) FEP BASIC FAM Jun 24, 2009 112 [id number] [phone] ABHILASH GARAY PATIENT [place] PREFERRED PROVIDER ORGANIZAT ION (PPO) FEP BASIC FAM Jun 24, 2009 [id number] [phone] RUBI GARAYNETH PATIENT [place]BS [place] PREFERRED PROVIDER ORGANIZAT ION (PPO) BASIC FAMIL Y Jun 24, 2009 [id number] ABHILASH GARAY PATIENT [place] PREFERRED PROVIDER ORGANIZAT ION (PPO) BASIC FAMIL Y Jun 24, 2009 [id number] ABHILASH GARAY PATIENT [place] PREFERRED PROVIDER ORGANIZAT ION (PPO) BASIC FAMIL Y Jun 24, 2009 [id number] RUBI GARAYNETH PATIENT [place] F[place] DENTAL DENTAL INSURANCE BASIC Jul 12, 2009 DENTAL [id number] [phone] DEJAHDANIKARUBI ACEVESNETH PATIENT [place] PREFERRED PROVIDER ORGANIZAT ION (PPO) BASIC FAMIL Y Jun 24, 2009 [id number] [phone] ABHILASH GARAY PATIENT [employer] FEP ([id number]) PRESCRIPT ION FEPRX Jun 24, 2009 [id number] [phone] ABHILASH GARAY PATIENT [place] FEP BCBS PRESCRIPT ION CAREM ARK FEPRX PLAN Nov 21, 2021 [id number] ABHILASH GARAY PATIENT [employer] FEPRX PLAN PRESCRIPT ION CAREM ARK FEPRX Nov 21, 2021 [id number] ABHILASH GARAY PATIENT [employer]-F EP BCBS PRESCRIPT ION FEP CAREM ARK Nov 21, 2021 [id number] DEJAHDANIKAABHILASH ACEVES PATIENT [employer]-F EP BCBS PRESCRIPT ION FEP Jun 23, 2010 [id number] DEJAHDANIKARUBI ACEVESNETH PATIENT MEDICARE ([facility]) MEDICARE () PART A Feb 22, 2020 PART A [id number] [phone] RUBI GARAYNETH PATIENT MEDICARE (WNR) MEDICARE (M) PART A Feb 22, 2020 PART A [id number] [phone] ABHILASH GARAY PATIENT MEDICARE (WNR) MEDICARE (M) PART A Feb 22, 2020 PART A [id number] [id number] ABHILASH GARAY PATIENT MEDICARE (WNR) MEDICARE (M) PART A Feb 22, 2020 PART A [id number] [phone] ABHILASH GARAY PATIENT MEDICARE (WNR) MEDICARE (M) PART A Feb 22, 2020 PART A [id number] ABHILASH GARAY PATIENT Selected Encounter This section includes the information on record at [place] for the Encounter. Date/Time Encounter Type Encounter Description Reason Provider Source Oct 06, 2023 12:40 PM RPR&REFITG SPECT XCP APHAKIA OPTOMETRY ICD-10-CM Z46.0 Encounter for fit/adjst of spectacles and contact lenses AME BOSS [facility] Encounter Template Text not used by [place] Assessments - Encounter Diagnoses This section includes the primary and secondary diagnoses documented for the Encounter. Date/Time Primary/Secondary Diagnosis Diagnosis Name Provider Source Oct 06, 2023 01:20 PM PRIMARY Encounter for fit/adjst of spectacles and contact lenses AME BOSS [facility] Plan of Treatment: Future Appointments (+ 6 [...] Appointment Type Appointme nt Facility Name Oct 09, 2023 01:00 PM AMBULATORY - [place]ICINE [place] [facility] [place] [facility] Oct 13, 2023 11:00 AM AMBULATORY - MEDICINE [place] [facility] [place] [facility] Oct 16, 2023 01:00 PM AMBULATORY - MEDICINE [place] [facility] [place] [facility] Oct 20, 2023 11:00 AM AMBULATORY - MEDICINE [place] [facility] [place] [place] [facility] October 23, 2023 01:00 PM AMBULATORY - MEDICINE [place] [facility] [place] [facility] October 27, 2023 11:00 AM AMBULATORY - MEDICINE [place] [facility] [place] [facility] November 03, 2023 11:00 AM AMBULATORY - MEDICINE [place] [facility] [place] [facility] November 03, 2023 01:00 PM AMBULATORY - MEDICINE [place] [facility] [place] [facility] November 06, 2023 01:00 PM AMBULATORY - MEDICINE [place] [facility] [place] [facility] November 06, 2023 02:00 PM AMBULATORY - MEDICINE [place] [facility] [place] [facility] November 10, 2023 11:00 AM AMBULATORY - MEDICINE [place] [facility] [place] [facility] November 13, 2023 10:30 AM AMBULATORY - MEDICINE [place] [facility] [place] [facility] November 18, 2023 11:00 AM AMBULATORY - MEDICINE [place] [facility] [place] [facility] November 20, 2023 10:30 AM AMBULATORY - MEDICINE [place] [facility] [place] [facility] November 20, 2023 01:00 PM AMBULATORY - MEDICINE [place] [facility] [place] [facility] Nov 27, 2023 02:00 PM [facility] Dec 02, 2023 11:00 AM AMBULATORY - MEDICINE [place] [facility] [place] [place] [facility] Dec 02, 2023 02:30 PM AMBULATORY - MEDICINE [place] [facility] [place] [place] [facility] Dec 04, 2023 01:00 PM AMBULATORY - MEDICINE [place] [facility] [place] [facility] Dec 08, 2023 11:00 AM AMBULATORY - MEDICINE [place] [facility] [place] [facility] Social History: Smoking Status (Most current) [...] VA-TOBACCO NEVER USED [place] [facility] [place] [facility] Tobacco Use History This section includes a history of the smoking, or tobacco-related health factors, that were collected on or before the date of the Encounter. The data comes from the [place] facility where the Encounter took place. Date/Time Smoking Status/Tobacco Use Comment Gilberto boston Aug 09, 2021 09:20 AM VA-TOBACCO NEVER USED [facility] Encounter Notes: All associated encounter notes This section contains the clinical notes associated to the Encounter. Date/Time Encounter Note(s) Provider Source Oct 06, 2023 01:19 PM OPTOMETRY NOTE: LOCAL TITLE: OPTOMETRY NOTE STANDARD TITLE: OPTOMETRY NOTE DATE OF NOTE: OCT 06, 2023@13:19 ENTRY DATE: OCT 06, 2023@13:19:48 AUTHOR: AME BOSS EXP COSIGNER: URGENCY: STATUS: COMPLETED OPT HT fixed and repaired 1 pair(s) of eyeglasses per patient request. Put lens in place, and added a screw. /yunior/ AME BOSS OPTOMETRY TECH Signed: 10/06/2023 13:21 AME BOSS [facility]
--- OUTSIDE RECORDS SUMMARY | 2024-06-29 18:56 | XMS_ITS | Encounter Summary ---
Author Name [facility] [place] [facility] [place] Address [address] [place] [address] Care Team Providers Care Accounting Systems Analyst Name Role Phone ABDIRAHMAN LAKE Primary [...] BASIC FAMIL Y Jun 24, 2009 [id number] [phone] ABHILASH GARAY PATIENT ANTHEM [place]BS [place] F[place] PREFERRED PROVIDER ORGANIZAT ION (PPO) FEP BASIC FAM Jun 24, 2009 112 [id number] [phone] ABHILASH GARAY PATIENT ANTHEM [place] PREFERRED PROVIDER ORGANIZAT ION (PPO) FEP BASIC FAM Jun 24, 2009 112 [id number] [phone] ABHILASH GARAY PATIENT [place] PREFERRED PROVIDER ORGANIZAT ION (PPO) FEP BASIC FAM Jun 24, 2009 112 [id number] [phone] ABHILASH GARAY PATIENT [place] PREFERRED PROVIDER ORGANIZAT ION (PPO) FEP BASIC FAM Jun 24, 2009 112 [id number] [phone] ABHILASH GARAY PATIENT [place] PREFERRED PROVIDER ORGANIZAT ION (PPO) BASIC FAMIL Y Jun 24, 2009 [id number] [phone] ABHILASH GARAY PATIENT [place] PREFERRED PROVIDER ORGANIZAT ION (PPO) BASIC FAMIL Y Jun 24, 2009 [id number] ABHILASH GARAY PATIENT [place] PREFERRED PROVIDER ORGANIZAT ION (PPO) BASIC FAMIL Y Jun 24, 2009 [id number] ABHILASH GARAY PATIENT [place] DENTAL DENTAL INSURANCE BASIC Jul 12, 2009 DENTAL [id number] ABHILASH GARAY PATIENT [place] PREFERRED PROVIDER ORGANIZAT ION (PPO) BASIC FAMIL Y Jun 24, 2009 [id number] ABHILASH GARAY PATIENT [employer] FEP ([id number]) PRESCRIPT ION FEPRX Jun 24, 2009 [id number] [phone] ABHILASH GARAY PATIENT [employer] FEP BCBS PRESCRIPT ION CAREM ARK FEPRX PLAN Nov 21, 2021 [id number] ABHILASH GARAY PATIENT [employer] FEPRX PLAN PRESCRIPT ION CAREM ARK FEPRX Nov 21, 2021 [id number] [phone] ABHILASH GARAY PATIENT [employer]-F EP BCBS PRESCRIPT ION FEP CAREM ARK Nov 21, 2021 [id number] ABHILASH GARAY PATIENT [employer]-F EP BCBS PRESCRIPT ION FEP Jun 23, 2010 [id number] CARLOS GARAYNETH PATIENT MEDICARE (WNR) MEDICARE (M) PART A Feb 22, 2020 PART A [id number] ABHILASH GARAY PATIENT MEDICARE (WNR) MEDICARE (M) PART A Feb 22, 2020 PART A [id number] [facility] ABHILASH GARAY PATIENT MEDICARE (WNR) MEDICARE (M) PART A Feb 22, 2020 PART A [id number] ABHILASH GARAY PATIENT MEDICARE (WNR) MEDICARE (M) PART A Feb 22, 2020 PART A [id number] [facility] ABHILASH GARAY PATIENT MEDICARE (WNR) MEDICARE (M) PART A Feb 22, 2020 PART A [id number] [phone] ABHILASH GARAY PATIENT Selected Encounter This section includes the information on record at [place] for the Encounter. Date/Time Encounter Type Encounter Description Reason Provider Source Jan 21, 2024 03:00 PM THERAPEUTIC EXERCISES PHYSICAL THERAPY ICD-10-CM M41.9 Scoliosis, unspecified JESSICA MEDRANO Fran Encounter Template Text not used by [place] Assessments - Encounter Diagnoses This section includes the primary and secondary diagnoses documented for the Encounter. Date/Time Primary/Secondary Diagnosis Diagnosis Name Provider Source Jan 21, 2024 03:28 PM PRIMARY Scoliosis, unspecified CARLOS MEDRANO Plan of Treatment: Future Appointments (+ [...] Appointment Type Appointme nt Facility Name Jan 28, 2024 11:00 AM AMBULATORY - MEDICINE [place] [facility] Jan 30, 2024 08:00 [facility] Feb 02, 2024 02:00 PM AMBULATORY - MEDICINE [place] [facility] [place] [place] [facility] Feb 04, 2024 11:00 AM AMBULATORY - MEDICINE [place] [facility] [place] [facility] Feb 09, 2024 11:30 AM AMBULATORY - MEDICINE [place] [facility] [place] [facility] Feb 09, 2024 02:00 PM AMBULATORY - MEDICINE [place] [facility] [place] [facility] Feb 19, 2024 01:00 PM AMBULATORY - MEDICINE [place] [facility] [place] [facility] Feb 25, 2024 11:00 AM AMBULATORY - NONE [place] [facility] [place] [place] [facility] Mar 04, 2024 01:00 PM AMBULATORY - MEDICINE [place] [facility] [place] [facility] Mar 09, 2024 01:00 PM AMBULATORY - MEDICINE [place] [facility] [place] [facility] Mar 11, 2024 11:00 AM AMBULATORY - MEDICINE [place] [facility] [place] [facility] Mar 15, 2024 12:15 PM AMBULATORY - MEDICINE [place] [facility] [place] [facility] Mar 25, 2024 01:00 PM AMBULATORY - MEDICINE [place] [facility] [place] [facility] Apr 06, 2024 10:30 AM [facility]ICINE [facility] Apr 07, 2024 03:30 PM AMBULATORY - NONE [place] [facility] [place] [facility] Apr 08, 2024 01:00 PM AMBULATORY - MEDICINE [place] [facility] [place] [facility] Apr 12, 2024 11:00 AM AMBULATORY - MEDICINE [place] [facility] [place] [facility] Apr 15, 2024 10:00 AM AMBULATORY - MEDICINE [place] [facility] [place] [facility] Apr 19, 2024 11:00 AM AMBULATORY - MEDICINE [place] [facility] [place] [facility] Apr 22, 2024 09:00 AM AMBULATORY - MEDICINE [place] [facility] [place] [place] [facility] Social History: Smoking Status (Most [...] 18, 2020 10:00 AM ME-TOBACCO NEVER USED [place] Tobacco Use History This section includes a history of the smoking, or tobacco-related health factors, that were collected on or before the date of the Encounter. The data comes from the [place] facility where the Encounter took place. Date/Time Smoking Status/Tobacco Use Comment Gilberto boston Dec 15, 2018 12:14 PM VA-TOBACCO NEVER USED [place] Jun 11, 2017 04:15 PM LIFETIME NON-TOBACCO USER [place] Jan 01, 2016 11:12 AM LIFETIME NON-TOBACCO USER [place] Jan 16, 2005 08:54 AM LIFETIME NON-SMOKER [place] Nov 29, 2003 08:05 AM LIFETIME NON-SMOKER [place] Jan 07, 2001 08:33 AM LIFETIME NON-SMOKER [place] Encounter Notes: All associated encounter notes This section contains the clinical notes associated to the Encounter. Date/Time Encounter Note(s) Provider Source Jan 21, 2024 03:00 PM PHYSICAL THERAPY D ISCHARGE NOTE: LOCAL TITLE: PHYSICAL THERAPY DISCHARGE NOTE STANDARD TITLE: PHYSICAL THERAPY DISCHARGE NOTE DATE OF NOTE: JAN 21, 2024@15:00 ENTRY DATE: JAN 21, 2024@15:00:06 AUTHOR: CARLOS MEDRANO COSIGNER: URGENCY: STATUS: COMPLETED Initial Evaluation date: 12/17/23 Progress Note Date: 01/16/24 Treatment #: 4 Treatment time: 30 Diagnosis:Scoliosis, unspecified(ICD-10-CM M41.9) Provider:VESTA BLISS PT Treatment Precautions: Patient identified by full name and date of goes by Carlos Martin SUBJECTIVE: Patient states the lower back gets sore with forward bending activities. Denies referred symptoms into the legs. 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 [employer] Patient Goal: learn what they can do to alleviate their pain Number of days per week with pain: 7/7 SANE report Please rate your ability to [...] - CHASITY JESÚS 90/90 HS LEG LENGTH JUAN JOSE Strength: Hip flexion L: 55 R: 55 Knee extension: L: 10/25 R: 10/25 Knee flexion L: 10/25 R: 10/25 Ankle DF L: 10/25 R: 10/25 Ankle INV L: 10/25 R: 10/25 Ankle EV L: 10/25 R: 10/25 Hip ER L: 09/25 R: 09/25 Hip ABD L: 09/25 R: 09/25 Hip Extension L: R: Glute Max: L: R: Palpation: Joint Mobility: Directional Preference: Extension bias [...] Trendelenburg (-) (-) INTERVENTIONS: Therapeutic Exercise: Mins: 10 nustep 8mins Hip flexor stretch off table 30s each Manual therapy: Mins: Neuro re-ed: Mins: Other: Mins: Modalities: Mins: [] contraindication screen completed prior to modality [] skin intact pre/post modality Access Code: [email or web address] URL: [email or web address] Date: 01/14/2024 Prepared by: Carlos Medrano Exercises - Step Up - 1 [...] sets - 5-10 reps PATIENT EDUCATION: Mins: 5 Patient education was provided for all aspects of care during this clinical encounter. Provided updated written HEP to patient reviewing proper form sets reps and frequency and safety precautions with patient verbalizing and demonstrating good understanding during visit. ASSESSMENT: Patient seen for reassessment of baseline measures. Patient with no signficant changes to self reported pain scores or functional scores or lumbar ROM or LE strength compared to intial eval. Today, provided updated written HEp reviewing with patient. Discussed POC with patient who verbalizes agreement with d/c to HEP today. GOALS: in 4-6weeks, patient will demonstrate: consistent [...] grade improvement in hip ABD MMT PLAN: D/C to HEP [x]Low impact cardio: [x]Nustep []Recumbent bike []Recumbent elliptical []TM []Manual: []STM/DTM []METs/SCS []IASTM []Joint mobilizations [x]Therex: []Progressive UQ [x]Progressive Core [x]Progressive LQ []UQ flex [x] Lumbar flex [x]LQ flex []Foam rolling []Proprioception []Neuro Re-education: []Static []Dynamic []Dual-Task [x]Education: [x]Posture []Ergonomics [x]Bodymechanics [x]Self-care strategies []PNE []Modalities(PRN): []Heat/Ice []Estim/Tens []Mechanical traction []K-tape [] Biofreeze /es/ CARLOS MEDRANO PT, DPT PHYSICAL THERAPIST Signed: 01/21/2024 15:28 CARLOS MEDRANO [place]
--- OUTSIDE RECORDS SUMMARY | 2024-06-29 18:56 | XMS_ITS | Encounter Summary ---
Author Name [place] Address [address] [place] [address] Care Team Providers Care Chief Science Officer Name Role Phone ABDIRAHMAN LAKE Primary [...] BASIC FAMIL Y Jun 24, 2009 [id number] [phone] ABHILASH GARAY PATIENT ANTHEM BCBS [place] F[place] PREFERRED PROVIDER ORGANIZAT ION (PPO) FEP BASIC FAM Jun 24, 2009 [id number] [phone] ABHILASH GARAY PATIENT ANTHEM [place]BS [place] PREFERRED PROVIDER ORGANIZAT ION (PPO) FEP BASIC FAM Jun 24, 2009 [id number] [phone] ABHILASH GARAY PATIENT [place] PREFERRED PROVIDER ORGANIZAT ION (PPO) FEP BASIC FAM Jun 24, 2009 112 [id number] [phone] ABHILASH GARAY PATIENT [place] PREFERRED PROVIDER ORGANIZAT ION (PPO) FEP BASIC FAM Jun 24, 2009 [id number] [phone] ABHILASH GARAY PATIENT [place]BS [place] PREFERRED PROVIDER ORGANIZAT ION (PPO) BASIC FAMIL Y Jun 24, 2009 [id number] ABHILASH GARAY PATIENT [place] PREFERRED PROVIDER ORGANIZAT ION (PPO) BASIC FAMIL Y Jun 24, 2009 [id number] ABHILASH GARAY PATIENT [place] PREFERRED PROVIDER ORGANIZAT ION (PPO) BASIC FAMIL Y Jun 24, 2009 112 [id number] [phone] ABHILASH GARAY PATIENT [place] F[place] DENTAL DENTAL INSURANCE BASIC Jul 12, 2009 DENTAL [id number] ABHILASH GARAY PATIENT [place] PREFERRED PROVIDER ORGANIZAT ION (PPO) BASIC FAMIL Y Jun 24, 2009 [id number] [phone] ABHILASH GARAY PATIENT [employer] FEP ([id number]) PRESCRIPT ION FEPRX Jun 24, 2009 [id number] [phone] ABHILASH GARAY PATIENT [place] FEP BCBS PRESCRIPT ION CAREM ARK FEPRX PLAN Nov 21, 2021 [id number] ABHILASH GARAY PATIENT [employer] FEPRX PLAN PRESCRIPT ION CAREM ARK FEPRX Nov 21, 2021 [id number] ABHILASH GARAY PATIENT [employer]-F EP BCBS PRESCRIPT ION FEP CAREM ARK Nov 21, 2021 [id number] ABHILASH GARAY PATIENT [employer]-F EP BCBS PRESCRIPT ION FEP Jun 23, 2010 [id number] ABHILASH GARAY PATIENT MEDICARE (WN) MEDICARE () PART A Feb 22, 2020 PART A [id number] [phone] ABHILASH GARAY PATIENT MEDICARE ([facility]) MEDICARE () PART A Feb 22, 2020 PART A [id number] ABHILASH GARAY PATIENT MEDICARE (WNR) MEDICARE (M) PART A Feb 22, 2020 PART A [id number] [phone] ABHILASH GARAY PATIENT MEDICARE (WNR) MEDICARE (M) PART A Feb 22, 2020 PART A [id number] ABHILASH GARAY PATIENT MEDICARE (WNR) MEDICARE (M) PART A Feb 22, 2020 PART A [id number] [phone] ABHILASH GARAY PATIENT Selected Encounter This section includes the information on [place] at [place] for the Encounter. Date/Time Encounter Type Encounter Description Reason Pro vider Source Sep 23, 2023 04:10 PM Outpatient Encounter PRIMARY CARE/MEDICINE IHE Encounter Template Text not used by [place] Plan of Treatment: Future Appointments (+ 6 [...] 29, 2023 11:00 AM AMBULATORY - [place]ICINE [place] [facility] Oct 02, 2023 01:00 PM AMBULATORY - MEDICINE [place] [facility] Oct 06, 2023 11:00 AM AMBULATORY - MEDICINE [place] [facility] [place] [facility] Oct 06, 2023 12:40 PM AMBULATORY - MEDICINE [place] [facility] [place] [place] [facility] Oct 09, 2023 01:00 PM AMBULATORY - MEDICINE [place] [facility] [place] [facility] Oct 13, 2023 11:00 AM AMBULATORY - MEDICINE [place] [facility] [place] [place] [facility] Oct 16, 2023 01:00 PM AMBULATORY - MEDICINE [place] [facility] [place] [place] [facility] Oct 20, 2023 11:00 AM AMBULATORY - MEDICINE [place] [facility] October 23, 2023 01:00 PM AMBULATORY - MEDICINE [place] [facility] [place] [facility] October 27, 2023 11:00 AM AMBULATORY - MEDICINE [place] [facility] [place] [place] [facility] November 03, 2023 11:00 AM AMBULATORY - MEDICINE [place] [facility] [place] [facility] November 03, 2023 01:00 PM AMBULATORY - MEDICINE [place] [facility] [place] [facility] November 06, 2023 01:00 PM AMBULATORY - MEDICINE [place] [facility] November 06, 2023 02:00 PM AMBULATORY - MEDICINE [place] [facility] November 10, 2023 11:00 AM AMBULATORY - MEDICINE [place] [facility] November 13, 2023 10:30 AM AMBULATORY - MEDICINE [place] [facility] November 18, 2023 11:00 AM AMBULATORY - MEDICINE [place] [facility] November 20, 2023 10:30 AM AMBULATORY - MEDICINE [place] [facility] November 20, 2023 01:00 PM AMBULATORY - [place]ICINE [place] [facility] Nov 27, 2023 02:00 PM [facility] Social History: Smoking Status (Most current) and [...] 09:12 AM VA-TOBACCO [facility] Tobacco Use History This section includes a history of the smoking, or tobacco-related health factors, that were collected on or before the date of the Encounter. The data comes from the [place] facility where the Encounter took place. Date/Time Smoking Status/Tobacco Use Comment F darvin Aug 09, 2021 09:20 AM VA-TOBACCO [facility] Encounter Notes: All associated encounter notes This section contains the clinical notes associated to the Encounter. Date/Time Encounter Note(s) Provider Source Sep 23, 2023 04:10 PM MEDICATION MGT NOT E: LOCAL TITLE: OUTPATIENT MEDICATION REQUEST STANDARD TITLE: MEDICATION MGT NOTE DATE OF NOTE: SEP 23, 2023@16:10 ENTRY DATE: SEP 23, 2023@16:10:43 AUTHOR: EUGENIE SALVADOR COSIGNER: URGENCY: STATUS: COMPLETED Medication Request Date of Request: Sep Is this a New Medication? No POTASSIUM CITRATE 10MEQ TAB [id number] 06/12/2022 05/21/2023 (0) SIG: TAKE TWO TABLETS BY MOUTH TWICE DAILY Indication: KIDNEY STONES PLEASE RENEW AND MAIL /yunior/ EUGENIE SALVADOR LPN Licensed Practical Nurse Signed: 09/23/2023 16:11 Receipt Acknowledged By: 09/23/2023 18:08 /yunior/ JEAN CLAUDE MENDEZ CERTIFIED NURSE PRACTITIONER for EUGENIE SHELTONFIELD
--- OUTSIDE RECORDS SUMMARY | 2024-06-29 18:56 | XMS_ITS | Encounter Summary ---
Author Name [facility] [place] [facility] [place] Address [address] [place] [address] Care Team Providers Care Diesel Mechanic Farm Name Role Phone ABDIRAHMAN LA[place] Primary Care [...] BASIC FAMIL Y Jun 24, 2009 112 [id number] [phone] ABHILASH GARAY PATIENT ANTHEM BCBS [place] F[place] PREFERRED PROVIDER ORGANIZAT ION (PPO) FEP BASIC FAM Jun 24, 2009 112 [id number] [phone] ABHILASH GARAY PATIENT ANTHEM BCBS [place] FEP PREFERRED PROVIDER ORGANIZAT ION (PPO) FEP BASIC FAM Jun 24, 2009 112 [id number] [phone] ABHILASH GARAY PATIENT ANTHEM [place] F[place] PREFERRED PROVIDER ORGANIZAT ION (PPO) FEP BASIC FAM Jun 24, 2009 112 [id number] [phone] ABHILASH GARAY PATIENT [place]BS [place] FEP PREFERRED PROVIDER ORGANIZAT ION (PPO) FEP BASIC FAM Jun 24, 2009 112 [id number] [phone] ABHILASH GARAY PATIENT BCBS [place] FEP PREFERRED PROVIDER ORGANIZAT ION (PPO) BASIC FAMIL Y Jun 24, 2009 [id number] ABHILASH GARAY PATIENT [place] PREFERRED PROVIDER ORGANIZAT ION (PPO) BASIC FAMIL Y Jun 24, 2009 [id number] [phone] ABHILASH GARAY PATIENT [place] FEP PREFERRED PROVIDER ORGANIZAT ION (PPO) BASIC FAMIL Y Jun 24, 2009 [id number] ABHILASH GARAY PATIENT [place] FEP DENTAL DENTAL INSURANCE BASIC Jul 12, 2009 DENTAL [id number] ABHILASH GARAY PATIENT [place] FEP PREFERRED PROVIDER ORGANIZAT ION (PPO) BASIC FAMIL Y Jun 24, 2009 [id number] ABHILASH GARAY PATIENT [employer] FEP ([id number]) PRESCRIPT ION FEPRX Jun 24, 2009 [id number] [phone] ABHILASH GARAY PATIENT [place] FEP BCBS PRESCRIPT ION CAREM ARK FEPRX PLAN Nov 21, 2021 [id number] ABHILASH GARAY PATIENT [employer] FEPRX PLAN PRESCRIPT ION CAREM ARK FEPRX Nov 21, 2021 [id number] ABHILASH GARAY PATIENT [place]-F EP BCBS PRESCRIPT ION FEP CAREM ARK Nov 21, 2021 [id number] ABHILASH GARAY PATIENT [place]-F EP BCBS PRESCRIPT ION FEP Jun 23, 2010 [id number] RUBI GARAYNETH PATIENT MEDICARE (WN) MEDICARE () PART A Feb 22, 2020 PART A [id number] [phone] ABHILASH GARAY PATIENT MEDICARE (WN) MEDICARE () PART A Feb 22, 2020 PART A [id number] ABHILASH GARAY PATIENT MEDICARE (WNR) MEDICARE (M) PART A Feb 22, 2020 PART A [id number] [phone] ABHILASH GARAY PATIENT MEDICARE (WNR) MEDICARE (M) PART A Feb 22, 2020 PART A [id number] ABHILASH GARAY PATIENT MEDICARE (WNR) MEDICARE (M) PART A Feb 22, 2020 PART A [id number] ABHILASH GARAY PATIENT Selected Encounter This section includes the information on record at [place] for the Encounter. Date/Time Encounter Type Encounter Description Reason Provider Source Sep 29, 2023 11:00 AM EXERCISE CLASS HEALTH/WELLBEING SRVS ICD-10-CM Y93.42 Activity, PAT Yoder [place] IHE Encounter Template Text not used by [place] Assessments - Encounter Diagnoses This section includes the primary and secondary diagnoses documented for the Encounter. Date/Time Primary/Secondary Diagnosis Diagnosis Name Provider Source Sep 29, 2023 02:17 PM PRIMARY Activity, PEDRO Yoder [facility] [place] [place] [facility] Plan of Treatment: Future [...] Appointment Type Appointme nt Facility Name Oct 02, 2023 01:00 PM AMBULATORY - MEDICINE [place] [facility] [place] [facility] Oct 06, 2023 11:00 AM AMBULATORY - MEDICINE [place] [facility] [place] [facility] Oct 06, 2023 12:40 PM AMBULATORY - MEDICINE [place] [facility] [place] [facility] Oct 09, 2023 01:00 PM AMBULATORY - MEDICINE [place] [facility] [place] [facility] Oct 13, 2023 11:00 AM AMBULATORY - MEDICINE [place] [facility] [place] [facility] Oct 16, 2023 01:00 PM AMBULATORY [place]ICINE [place] [facility] [place] [facility] Oct 20, 2023 11:00 AM AMBULATORY - MEDICINE [place] [facility] [place] [facility] October 23, 2023 01:00 PM AMBULATORY - MEDICINE [place] [facility] [place] [facility] October 27, 2023 11:00 AM AMBULATORY - [place]ICINE [place] [facility] [place] [facility] November 03, 2023 11:00 AM AMBULATORY - MEDICINE [place] [facility] [place] [facility] November 03, 2023 01:00 PM AMBULATORY - MEDICINE [place] [facility] [place] [facility] November 06, 2023 01:00 PM AMBULATORY - MEDICINE [place] [facility] [place] [facility] November 06, 2023 02:00 PM AMBULATORY - MEDICINE [place] [facility] [place] [facility] November 10, 2023 11:00 AM AMBULATORY - MEDICINE [place] [facility] [place] [facility] November 13, 2023 10:30 AM AMBULATORY - MEDICINE [place] [facility] [place] [facility] November 18, 2023 11:00 AM AMBULATORY - MEDICINE [place] [facility] [place] [facility] November 20, 2023 10:30 AM AMBULATORY - MEDICINE [place] [facility] [place] [facility] November 20, 2023 01:00 PM AMBULATORY - MEDICINE [place] [facility] [place] [place] [facility] Nov 27, 2023 02:00 PM AMBULATORY - MEDICINE [facility] Dec 02, 2023 11:00 AM AMBULATORY - MEDICINE [place] [facility] [place] [facility] Social History: Smoking Status [...] AM VA-TOBACCO NEVER USED [place] [facility] [place] [place] [facility] Tobacco Use History This section includes a history of the smoking, or tobacco-related health factors, that were collected on or before the date of the Encounter. The data comes from the [place] facility where the Encounter took place. Date/Time Smoking Status/Tobacco Use Comment Gilberto boston Aug 09, 2021 09:20 AM [place]-TOBACCO NEVER USED [facility] Encounter Notes: All associated encounter notes This section contains the clinical notes associated to the Encounter. Date/Time Encounter Note(s) Provider Source Sep 29, 2023 11:00 AM RECREATIONAL THERA PY NOTE: LOCAL TITLE: YOGA WELLBEING STANDARD TITLE: RECREATIONAL THERAPY NOTE DATE OF NOTE: SEP 29, 2023@11:00 ENTRY DATE: SEP 29, 2023@14:06:52 AUTHOR: MARY KATE MOORE EXP COSIGNER: URGENCY: [...] tree, triangle pose, wide leg forward bend, [place] 2, Extended Side Angle Pose, Intense Side Stretch, [place] 1, plank, cobra, locust, downward facing dog, wisdom pose, contralateral limb raises, head to knee pose, bridge, reclined twist, and knees to chest; Systematic Relaxation; and Gratitude. Modifications were geared toward the 's individual needs and preferences. [place] was one of seven participants in Group Yoga. He fully participated, practicing all the postures offered and modifying according to his needs. He practiced excellent self- care and used his breath as a tool to enhance his practice. He will return to class as his schedule allows. /yunior/ MARY KATE MOORE, [id number] Rotary Operator Signed: 09/29/2023 14:22 MARY KATE MOORE [facility]
--- OUTSIDE RECORDS SUMMARY | 2024-06-29 18:56 | XMS_ITS | Encounter Summary ---
Author Name [facility] [place] Address [address] [place] [address] Care Team Providers Care Wire Stretcher Name Role Phone ABDIRAHMAN LA[place] Primary Care [...] BASIC FAMIL Y Jun 24, 2009 112 [id number] [phone] ABHILASH GARAY PATIENT ANTHEM BCBS [place] F[place] PREFERRED PROVIDER ORGANIZAT ION (PPO) FEP BASIC FAM Jun 24, 2009 112 [id number] [phone] ABHILASH GARAY PATIENT ANTHEM [place]BS [place] F[place] PREFERRED PROVIDER ORGANIZAT ION (PPO) FEP BASIC FAM Jun 24, 2009 112 [id number] [phone] ABHILASH GARAY PATIENT [place] PREFERRED PROVIDER ORGANIZAT ION (PPO) FEP BASIC FAM Jun 24, 2009 112 [id number] [phone] ABHILASH GARAY PATIENT [place] FEP PREFERRED PROVIDER ORGANIZAT ION (PPO) FEP BASIC FAM Jun 24, 2009 112 [id number] [phone] ABHILASH GARAY PATIENT [place]BS [place] F[place] PREFERRED PROVIDER ORGANIZAT ION (PPO) BASIC FAMIL Y Jun 24, 2009 [id number] ABHILASH GARAY PATIENT [place] PREFERRED PROVIDER ORGANIZAT ION (PPO) BASIC FAMIL Y Jun 24, 2009 [id number] ABHILASH GARAY PATIENT [place] PREFERRED PROVIDER ORGANIZAT ION (PPO) BASIC FAMIL Y Jun 24, 2009 [id number] ABHILASH GARAY PATIENT [place] DENTAL DENTAL INSURANCE BASIC Jul 12, 2009 DENTAL [id number] [phone] ABHILASH GARAY PATIENT [place] F[place] PREFERRED PROVIDER ORGANIZAT ION (PPO) BASIC FAMIL Y Jun 24, 2009 [id number] ABHILASH GARAY PATIENT [employer] FEP ([id number]) PRESCRIPT ION FEPRX Jun 24, 2009 [id number] [phone] ABHILASH GARAY PATIENT [place] FEP BCBS PRESCRIPT ION CAREM ARK FEPRX PLAN Nov 21, 2021 [id number] ABHILASH GARAY PATIENT [employer] FEPRX PLAN PRESCRIPT ION CAREM ARK FEPRX Nov 21, 2021 [id number] ABHILASH GARAY PATIENT [employer]-F EP BCBS PRESCRIPT ION FEP CAREM ARK Nov 21, 2021 [id number] ABHILASH GARAY PATIENT [employer]-F EP BCBS PRESCRIPT ION FEP Jun 23, 2010 [id number] ABHILASH GARAY PATIENT MEDICARE (WN) MEDICARE () PART A Feb 22, 2020 PART A [id number] [phone] ABHILASH GARAY PATIENT MEDICARE ([facility]) MEDICARE () PART A Feb 22, 2020 PART A [id number] ABHILASH GARAY PATIENT MEDICARE (WNR) MEDICARE (M) PART A Feb 22, 2020 PART A [id number] ABHILASH GARAY PATIENT MEDICARE (WNR) MEDICARE (M) PART A Feb 22, 2020 PART A [id number] ABHILASH GARAY PATIENT MEDICARE (WNR) MEDICARE (M) PART A Feb 22, 2020 PART A [id number] ABHILASH GARAY PATIENT Selected Encounter This section includes the information on record at [place] for the Encounter. Date/Time Encounter Type Encounter Description Reason Pro vider Source Jan 21, 2024 10:13 AM Outpatient Encounter TELEPHONE/ANCILLARY IHE Encounter Template Text not used by [place] Plan of Treatment: Future Appointments (+ 6 [...] - MEDICINE [place] [facility] Jan 30, 2024 08:00 AM [facility] Feb 02, 2024 02:00 PM AM[place]UL[place]ORY [place] [facility] Feb 04, 2024 11:00 AM AM[place]UL[place] [facility] [place] [place] [facility] Feb 09, 2024 11:30 AM AMBULATORY - MEDICINE [place] [facility] [place] [place] [facility] Feb 09, 2024 02:00 PM AMBULATORY - MEDICINE [place] [facility] [place] [facility] Feb 19, 2024 01:00 PM AMBULATORY - MEDICINE [place] [facility] [place] [facility] Feb 25, 2024 11:00 AM AMBULATORY - NONE [facility] [place] [facility] Mar 04, 2024 01:00 PM AMBULATORY - MEDICINE [place] [facility] [place] [place] [facility] Mar 09, 2024 01:00 PM AMBULATORY - MEDICINE [place] [facility] [place] [facility] Mar 11, 2024 11:00 AM AMBULATORY - MEDICINE [place] [facility] [place] [facility] Mar 15, 2024 12:15 PM AMBULATORY - MEDICINE [place] [facility] [place] [facility] Mar 25, 2024 01:00 PM AMBULATORY - MEDICINE [place] [facility] [place] [place] [facility] Apr 06, 2024 10:30 AM AMBULATORY - [place]ICINE [place] Apr 07, 2024 03:30 PM AMBULATORY - NONE [facility] [place] [facility] Apr 08, 2024 01:00 PM AMBULATORY - MEDICINE [place] [facility] [place] [place] [facility] Apr 12, 2024 11:00 AM AMBULATORY - MEDICINE [place] [facility] [place] [place] [facility] Apr 15, 2024 10:00 AM AMBULATORY - MEDICINE [place] [facility] [place] [place] [facility] Apr 19, 2024 11:00 AM AMBULATORY - MEDICINE [place] [facility] [place] [place] [facility] Apr 22, 2024 09:00 AM AMBULATORY - MEDICINE [place] [facility] [place] [place] [facility] Social History: Smoking Status (Most current) [...] 08, 2023 09:12 AM VA-TOBACCO NEVER USED [facility] Tobacco Use History This section includes a history of the smoking, or tobacco-related health factors, that were collected on or before the date of the Encounter. The data comes from the [place] facility where the Encounter took place. Date/Time Smoking Status/Tobacco Use Comment F darvin Aug 09, 2021 09:20 AM VA-TOBACCO NEVER USED [facility]
--- OUTSIDE RECORDS SUMMARY | 2024-06-29 18:56 | XMS_ITS | Encounter Summary ---
Author Name [place] Address [address] [place] [address] Care Team Providers Care Tank House Operator Name Role Phone ABDIRAHMAN LAKE Primary [...] BASIC FAMIL Y Jun 24, 2009 112 [id number] [phone] ABHILASH GARAY PATIENT ANTHEM BCBS [place] FEP PREFERRED PROVIDER ORGANIZAT ION (PPO) FEP BASIC FAM Jun 24, 2009 112 [id number] [phone] ABHILASH GARAY PATIENT ANTHEM BCBS [place] FEP PREFERRED PROVIDER ORGANIZAT ION (PPO) FEP BASIC FAM Jun 24, 2009 112 [id number] [phone] ABHILASH GARAY PATIENT [place] PREFERRED PROVIDER ORGANIZAT ION (PPO) FEP BASIC FAM Jun 24, 2009 112 [id number] [phone] ABHILASH GARAY PATIENT [place] PREFERRED PROVIDER ORGANIZAT ION (PPO) FEP BASIC FAM Jun 24, 2009 112 [id number] [phone] ABHILASH GARAY PATIENT [place]BS [place] F[place] PREFERRED PROVIDER ORGANIZAT ION (PPO) BASIC FAMIL Y Jun 24, 2009 [id number] [phone] ABHILASH GARAY PATIENT [place] FEP PREFERRED PROVIDER ORGANIZAT ION (PPO) BASIC FAMIL Y Jun 24, 2009 [id number] ABHILASH GARAY PATIENT [place] PREFERRED PROVIDER ORGANIZAT ION (PPO) BASIC FAMIL Y Jun 24, 2009 112 [id number] [phone] ABHILASH GARAY PATIENT [place] F[place] DENTAL DENTAL INSURANCE BASIC Jul 12, 2009 DENTAL [id number] ABHILASH GARAY PATIENT [place] F[place] PREFERRED PROVIDER ORGANIZAT ION (PPO) BASIC FAMIL Y Jun 24, 2009 [id number] ABHILASH GARAY PATIENT [employer] FEP ([id number]) PRESCRIPT ION FEPRX Jun 24, 2009 [id number] [phone] ABHILASH GARAY PATIENT [place] FEP BCBS PRESCRIPT ION CAREM ARK FEPRX PLAN Nov 21, 2021 [id number] ABHILASH GARAY PATIENT [employer] FEPRX PLAN PRESCRIPT ION CAREM ARK FEPRX Nov 21, 2021 [id number] ABHILASH GARAY PATIENT [place]-F EP BCBS PRESCRIPT ION FEP CAREM ARK Nov 21, 2021 [id number] ABHILASH GARAY PATIENT [place]-F EP BCBS PRESCRIPT ION FEP Jun 23, 2010 [id number] RUBI GARAYNETH PATIENT MEDICARE (WN) MEDICARE () PART A Feb 22, 2020 PART A [id number] [phone] ABHILASH GARAY PATIENT MEDICARE (WN) MEDICARE () PART A Feb 22, 2020 PART A [id number] ABHILASH GARAY PATIENT MEDICARE (WNR) MEDICARE (M) PART A Feb 22, 2020 PART A [id number] ABHILASH GARAY PATIENT MEDICARE (WNR) MEDICARE (M) PART A Feb 22, 2020 PART A [id number] NV71 [phone] ABHILASH GARAY PATIENT MEDICARE (WNR) MEDICARE (M) PART A Feb 22, 2020 PART A [id number] [id number] [phone] ABHILASH GARAY PATIENT Selected Encounter This section includes the information on record at [place] for the Encounter. Date/Time Encounter Type Encounter Description Reason Provider Source Oct 02, 2023 01:00 PM EXERCISE CLASS HEALTH/WELLBEING SRVS ICD-10-CM Y93.42 Activity, PAT Yoder [place] IHE Encounter Template Text not used by [place] Assessments - Encounter Diagnoses This section includes the primary and secondary diagnoses documented for the Encounter. Date/Time Primary/Secondary Diagnosis Diagnosis Name Provider Source Oct 02, 2023 03:31 PM PRIMARY Activity, PEDRO Yoder [facility] [place] [facility] Plan of Treatment: Future Appointments [...] - MEDICINE [place] [facility] Oct 06, 2023 12:40 PM AM[place]ULATORY [place] [facility] Oct 09, 2023 01:00 PM AM[place]ULATORY [place] [facility] Oct 13, 2023 11:00 AM AM[place]ULATORY [place] [facility] Oct 16, 2023 01:00 PM [place]UL[place] [facility] [place] [facility] November 03, 2023 01:00 PM AMBULATORY - [place]ICINE [place] [facility] [place] [facility] November 06, 2023 01:00 PM AMBULATORY - MEDICINE [place] [facility] [place] [facility] November 06, 2023 02:00 PM AMBULATORY - MEDICINE [place] [facility] [place] [facility] November 10, 2023 11:00 AM AMBULATORY - MEDICINE [place] [facility] [place] [facility] November 13, 2023 10:30 AM AMBULATORY - MEDICINE [place] [facility] [place] [facility] November 18, 2023 11:00 AM AMBULATORY - MEDICINE [place] [facility] [place] [facility] November 20, 2023 10:30 AM AMBULATORY - MEDICINE [place] [facility] [place] [facility] November 20, 2023 01:00 PM AMBULATORY - MEDICINE [place] [facility] [place] [facility] Nov 27, 2023 02:00 PM [facility] Dec 02, 2023 11:00 AM AMBULATORY - MEDICINE [place] [facility] [place] [place] [facility] Dec 02, 2023 02:30 PM AMBULATORY [...] 08, 2023 09:12 AM VA-TOBACCO NEVER USED [place] [facility] Tobacco Use History This section includes a history of the smoking, or tobacco-related health factors, that were collected on or before the date of the Encounter. The data comes from the [place] facility where the Encounter took place. Date/Time Smoking Status/Tobacco Use Comment Gilberto boston Aug 09, 2021 09:20 AM [place]-TOBACCO NEVER USED [facility] Encounter Notes: All associated encounter notes This section contains the clinical notes associated to the Encounter. Date/Time Encounter Note(s) Provider Source Oct 02, 2023 01:00 PM RECREATIONAL THERA PY NOTE: LOCAL TITLE: YOGA WELLBEING STANDARD TITLE: RECREATIONAL THERAPY NOTE DATE OF NOTE: OCT 02, 2023@13:00 ENTRY DATE: OCT 02, 2023@15:31:07 AUTHOR: MARY KATE MOORE EXP COSIGNER: URGENCY: [...] tree, triangle pose, wide leg forward bend, [place] 2, Extended Side Angle Pose, Intense Side Stretch, [place] 1, plank, cobra, locust, downward facing dog, wisdom pose, contralateral limb raises, head to knee pose, bridge, reclined twist, and knees to chest; Systematic Relaxation; and Gratitude. Modifications were geared toward the 's individual needs and preferences. [place] was one of thirteen participants in Group Yoga. He fully participated, practicing all the postures offered and modifying according to his needs. He practiced excellent self-care and used his breath as a tool to enhance his practice. He will return to class as his schedule allows. /yunior/ ROXANNA [id number] Computer Mechanic Signed: 10/02/2023 15:37 MARY KATE MOORE [facility]
--- OUTSIDE RECORDS SUMMARY | 2024-06-29 18:56 | XMS_ITS | Encounter Summary ---
Author Name [facility] [place] Address [address] [place] [address] Care Team Providers Care Computer Forensic Specialist Name Role Phone ABDIRAHMAN LAKE Primary [...] BASIC FAMIL Y Jun 24, 2009 [id number] [phone] ABHILASH GARAY PATIENT ANTHEM BCBS [place] FEP PREFERRED PROVIDER ORGANIZAT ION (PPO) FEP BASIC FAM Jun 24, 2009 112 [id number] [phone] ABHILASH GARAY PATIENT ANTHEM BCBS [place] FEP PREFERRED PROVIDER ORGANIZAT ION (PPO) FEP BASIC FAM Jun 24, 2009 112 [id number] [phone] ABHILASH GARAY PATIENT ANTHEM [place]BS [place] PREFERRED PROVIDER ORGANIZAT ION (PPO) FEP BASIC FAM Jun 24, 2009 112 [id number] [phone] ABHILASH GARAY PATIENT [place]BS [place] FEP PREFERRED PROVIDER ORGANIZAT ION (PPO) FEP BASIC FAM Jun 24, 2009 112 [id number] [phone] RUBI GARAYNETH PATIENT BCBS [place] FEP PREFERRED PROVIDER ORGANIZAT ION (PPO) BASIC FAMIL Y Jun 24, 2009 112 [id number] [phone] RUBI GARAYNETH PATIENT [place] FEP PREFERRED PROVIDER ORGANIZAT ION (PPO) BASIC FAMIL Y Jun 24, 2009 112 [id number] RUBI GARAYNETH PATIENT [place] FEP PREFERRED PROVIDER ORGANIZAT ION (PPO) BASIC FAMIL Y Jun 24, 2009 [id number] [phone] RUBI GARAYNETH PATIENT [place] FEP DENTAL DENTAL INSURANCE BASIC Jul 12, 2009 DENTAL [id number] DEJAHDANIKARUBI ACVEESNETH PATIENT [place] FEP PREFERRED PROVIDER ORGANIZAT ION (PPO) BASIC FAMIL Y Jun 24, 2009 [id number] [phone] ABHILASH GARAY PATIENT [employer] FEP ([id number]) PRESCRIPT ION FEPRX Jun 24, 2009 [id number] [phone] ABHILASH GARAY PATIENT [place] FEP BCBS PRESCRIPT ION CAREM ARK FEPRX PLAN Nov 21, 2021 [id number] ABHILASH GARAY PATIENT [employer] FEPRX PLAN PRESCRIPT ION CAREM ARK FEPRX Nov 21, 2021 [id number] ABHILASH GARAY PATIENT [employer]ARK-F EP BCBS PRESCRIPT ION FEP CAREM ARK Nov 21, 2021 [id number] ABHILASH GARAY PATIENT [employer]-F EP BCBS PRESCRIPT ION FEP Jun 23, 2010 [id number] RUBI GARAYNETH PATIENT MEDICARE ([facility]) MEDICARE () PART A Feb 22, 2020 PART A [id number] ABHILASH GARAY PATIENT MEDICARE (WNR) MEDICARE (M) PART A Feb 22, 2020 PART A [id number] ABHILASH GARAY PATIENT MEDICARE (WNR) MEDICARE (M) PART A Feb 22, 2020 PART A [id number] ABHILASH GARAY PATIENT MEDICARE (WNR) MEDICARE (M) PART A Feb 22, 2020 PART A [id number] ABHILASH GARAY PATIENT MEDICARE (WNR) MEDICARE (M) PART A Feb 22, 2020 PART A [id number] ABHILASH GARAY PATIENT Selected Encounter This section includes the information on [place] at [place] for the Encounter. Date/Time Encounter Type Encounter Description Reason Pro vider Source Sep 23, 2023 08:56 AM Outpatient Encounter ADMIN PAT ACTIVTIES (MASNONCT) [...] 29, 2023 11:00 AM AMBULATORY - MEDICINE [facility] [place] [facility] Oct 02, 2023 01:00 PM AMBULATORY - MEDICINE [place] [facility] Oct 06, 2023 11:00 AM AMBULATORY - MEDICINE [place] [facility] Oct 06, 2023 12:40 PM AMBULATORY - MEDICINE [place] [facility] Oct 09, 2023 01:00 PM AMBULATORY - MEDICINE [place] [facility] Oct 13, 2023 11:00 AM AMBULATORY - MEDICINE [place] [facility] Oct 16, 2023 01:00 PM AMBULATORY - MEDICINE [facility] [place] [facility] Oct 20, 2023 11:00 AM AMBULATORY - [place]ICINE [place] [facility] October 23, 2023 01:00 PM AMBULATORY - MEDICINE [place] [facility] October 27, 2023 11:00 AM AMBULATORY - MEDICINE [place] [facility] November 03, 2023 11:00 AM AMBULATORY - MEDICINE [place] [facility] November 03, 2023 01:00 PM AMBULATORY - MEDICINE [place] [facility] November 06, 2023 01:00 PM AMBULATORY - MEDICINE [place] [facility] November 06, 2023 02:00 PM AMBULATORY - MEDICINE [place] [facility] November 10, 2023 11:00 AM AMBULATORY - MEDICINE [place] [facility] November 13, 2023 10:30 AM AMBULATORY - MEDICINE [place] [facility] November 18, 2023 11:00 AM AMBULATORY - MEDICINE [place] [facility] November 20, 2023 10:30 AM AMBULATORY - MEDICINE [place] [facility] November 20, 2023 01:00 PM AMBULATORY - MEDICINE [place] [facility] Nov 27, 2023 02:00 PM AMBULATORY - MEDICINE [facility] Social History: Smoking Status (Most current) [...] 2023 09:12 AM VA-TOBACCO [facility] [place] [facility] Tobacco Use History This section includes a history of the smoking, or tobacco-related health factors, that were collected on or before the date of the Encounter. The data comes from the [place] facility where the Encounter took place. Date/Time Smoking Status/Tobacco Use Comment F acjaved Aug 09, 2021 09:20 AM [facility] Encounter Notes: All associated encounter notes This section contains the clinical notes associated to the Encounter. Date/Time Encounter Note(s) Provider Source Sep 23, 2023 08:56 AM ADMINISTRATIVE NOT E: LOCAL TITLE: CCC: SCHEDULING ADMINISTRATION STANDARD TITLE: ADMINISTRATIVE NOTE DATE OF NOTE: SEP 23, 2023@08:56:12 ENTRY DATE: SEP 23, 2023@08:56:12 AUTHOR: CHEYENNE JENNINGS EXP COSIGNER: URGENCY: STATUS: COMPLETED Patient Demographics Patient Name: ABHILASH GARAY Patient Primary Phone: [phone] Patient Primary Address: [address] [place] [address] Patient : 1955 Patient Age: 68 Call Back Number: [phone] Caller/Recipient Relation to Patient: Self Scheduling Patient Expects Callback: Yes Scheduling Note Comments: Snook returning call to PACT RN please call at [phone] Administrative Administrative Note Reason: Returned Call /es/ CHEYENNE JENNINGS V1 [facility] AMSA Signed: 09/23/2023 08:56 Receipt Acknowledged By: 09/23/2023 16:40 /es/ BREANNA BAKER RN-BC REGISTERED NURSE 09/23/2023 09:02 /es/ EUGENIE SALVADOR LPN Licensed Practical Nurse [facility]ENNINGS [facility]
--- OUTSIDE RECORDS SUMMARY | 2024-06-29 18:56 | XMS_ITS | Encounter Summary ---
Author Name [facility] [place] [facility] [place] Address [address] [place] [address] Care Team Providers Care Screen Printing Cloth Spreader Name Role Phone ABDIRAHMAN LAKE Primary Care [...] BASIC FAMIL Y Jun 24, 2009 112 [id number] [phone] ABHILASH GARAY PATIENT ANTHEM BCBS [place] FEP PREFERRED PROVIDER ORGANIZAT ION (PPO) FEP BASIC FAM Jun 24, 2009 112 [id number] [phone] ABHILASH GARAY PATIENT ANTHEM BCBS [place] FEP PREFERRED PROVIDER ORGANIZAT ION (PPO) FEP BASIC FAM Jun 24, 2009 112 [id number] [phone] ABHILASH GARAY PATIENT ANTHEM [place] PREFERRED PROVIDER ORGANIZAT ION (PPO) FEP BASIC FAM Jun 24, 2009 112 [id number] [phone] ABHILASH GARAY PATIENT [place] F[place] PREFERRED PROVIDER ORGANIZAT ION (PPO) FEP BASIC FAM Jun 24, 2009 112 [id number] [phone] ABHILASH GARAY PATIENT BCBS [place] FEP PREFERRED PROVIDER ORGANIZAT ION (PPO) BASIC FAMIL Y Jun 24, 2009 [id number] ABHILASH GARAY PATIENT [place] FEP PREFERRED PROVIDER ORGANIZAT ION (PPO) BASIC FAMIL Y Jun 24, 2009 [id number] ABHILASH GARAY PATIENT [place] FEP PREFERRED PROVIDER ORGANIZAT ION (PPO) BASIC FAMIL Y Jun 24, 2009 [id number] ABHILASH GARAY PATIENT [place] F[place] DENTAL DENTAL INSURANCE BASIC Jul 12, 2009 DENTAL [id number] 62 ABHILASH GARAY PATIENT [place] FEP PREFERRED PROVIDER ORGANIZAT ION (PPO) BASIC FAMIL Y Jun 24, 2009 [id number] ABHILASH GARAY PATIENT [employer] FEP ([id number]) PRESCRIPT ION FEPRX Jun 24, 2009 [id number] [phone] ABHILASH GARAY PATIENT [employer] FEP BCBS PRESCRIPT ION CAREM ARK FEPRX PLAN Nov 21, 2021 [id number] ABHILASH GARAY PATIENT [employer] FEPRX PLAN PRESCRIPT ION CAREM ARK FEPRX Nov 21, 2021 [id number] ABHILASH GARAY PATIENT [employer]-F EP BCBS PRESCRIPT ION FEP CAREM ARK Nov 21, 2021 [id number] ABHILASH GARAY PATIENT [employer]-F EP BCBS PRESCRIPT ION FEP Jun 23, 2010 [id number] RUBI GARAYNETH PATIENT MEDICARE (WN) MEDICARE () PART A Feb 22, 2020 PART A [id number] ABHILASH GARAY PATIENT MEDICARE (WN) MEDICARE () PART A Feb 22, 2020 PART A [id number] ABHILASH GARAY PATIENT MEDICARE (WNR) MEDICARE (M) PART A Feb 22, 2020 PART A [id number] [phone] ABHILASH GARAY PATIENT MEDICARE (WNR) MEDICARE (M) PART A Feb 22, 2020 PART A [id number] ABHILASH GARAY PATIENT MEDICARE (WNR) MEDICARE (M) PART A Feb 22, 2020 PART A [id number] [phone] ABHILASH GARAY PATIENT Selected Encounter This section includes the information on record at [place] for the Encounter. Date/Time Encounter Type Encounter Description Reason Pro vider Source Sep 15, 2023 09:42 AM Outpatient Encounter RESPIRATORY THERAPY IHE Encounter Template Text not used by [...] - MEDICINE [place] [facility] Sep 29, 2023 11:00 AM AMBULATORY - [place]ICINE [place] [facility] Oct 02, 2023 01:00 PM AMBULATORY - MEDICINE [place] [facility] Oct 06, 2023 11:00 AM AMBULATORY - MEDICINE [place] [facility] Oct 06, 2023 12:40 PM AMBULATORY - MEDICINE [place] [facility] Oct 09, 2023 01:00 PM AMBULATORY - MEDICINE [place] [facility] Oct 13, 2023 11:00 AM AMBULATORY - MEDICINE [place] [facility] Oct 16, 2023 01:00 PM AMBULATORY - MEDICINE [place] [facility] Oct 20, 2023 11:00 AM AMBULATORY - MEDICINE [place] [facility] October 23, 2023 01:00 PM AMBULATORY - MEDICINE [place] [facility] October 27, 2023 11:00 AM AMBULATORY - MEDICINE [place] [facility] November 03, 2023 11:00 AM AMBULATORY - MEDICINE [place] [facility] November 03, 2023 01:00 PM AMBULATORY - MEDICINE [place] [facility] November 06, 2023 01:00 PM AMBULATORY - MEDICINE [place] [facility] November 06, 2023 02:00 PM AMBULATORY - MEDICINE [place] [facility] November 10, 2023 11:00 AM AMBULATORY - MEDICINE [place] [facility] November 13, 2023 10:30 AM AMBULATORY - MEDICINE [place] [facility] November 18, 2023 11:00 AM AMBULATORY - MEDICINE [place] [facility] November 20, 2023 10:30 AM AMBULATORY - MEDICINE [place] [facility] November 20, 2023 01:00 PM AMBULATORY - MEDICINE [place] [facility] [...] 08, 2023 09:12 AM [facility] Tobacco Use History This section includes a history of the smoking, or tobacco-related health factors, that were collected on or before the date of the Encounter. The data comes from the [place] facility where the Encounter took place. Date/Time Smoking Status/Tobacco Use Comment F darvin Aug 09, 2021 09:20 AM [facility]TOBACCO [facility] Encounter Notes: All associated encounter notes This section contains the clinical notes associated to the Encounter. Date/Time Encounter Note(s) Provider Source Sep 15, 2023 09:42 AM TELEPHONE ENCOUNTE R NOTE: LOCAL TITLE: TELEPHONE NOTE/SPECIALTY CLINIC STANDARD TITLE: TELEPHONE ENCOUNTER NOTE DATE OF NOTE: SEP 15, 2023@09:42 ENTRY DATE: SEP 15, 2023@09:42:21 AUTHOR: SYDNEE SEVILLA EXP COSIGNER: URGENCY: STATUS: COMPLETED [employer] called and is requesting the following CPAP supplies: mask, water tank Address and phone confirmed as correct. /yunior/ SYDNEE SEVILLA CRANE CREW SUPERVISOR Signed: 09/15/2023 09:42 Receipt Acknowledged By: 09/16/2023 07:59 /es/ JANIE STERLING,TEJA RESPIRATORY THERAPIST 09/17/2023 11:53 /es/ PAULETTE GONZALEZ SUPERVISORY CRANE CREW SUPERVISOR 09/15/2023 15:32 /es/ ALMA ROSA CLARK RESPIRATORY THERAPIST 09/15/2023 15:13 /es/ JANIE CARPIO CRT RESPIRATORY THERAPIST SYDNEE SEVILLA [place] [facility]
--- OUTSIDE RECORDS SUMMARY | 2024-06-29 18:56 | XMS_ITS | Encounter Summary ---
Author Name [facility] [place] Address [address] [place] [address] Care Team Providers Care Local Driver Name Role Phone ABDIRAHMAN LAKE Primary Care [...] BASIC FAMIL Y Jun 24, 2009 112 [id number] [phone] ABHILASH GARAY PATIENT ANTHEM BCBS [place] FEP PREFERRED PROVIDER ORGANIZAT ION (PPO) FEP BASIC FAM Jun 24, 2009 112 [id number] [phone] ABHILASH GARAY PATIENT ANTHEM BCBS [place] FEP PREFERRED PROVIDER ORGANIZAT ION (PPO) FEP BASIC FAM Jun 24, 2009 112 [id number] [phone] ABHILASH GARAY PATIENT ANTHEM [place] PREFERRED PROVIDER ORGANIZAT ION (PPO) FEP BASIC FAM Jun 24, 2009 [id number] [phone] ABHILASH GARAY PATIENT [place] FEP PREFERRED PROVIDER ORGANIZAT ION (PPO) FEP BASIC FAM Jun 24, 2009 [id number] [phone] RUBI GARAYNETH PATIENT BCBS [place] FEP PREFERRED PROVIDER ORGANIZAT ION (PPO) BASIC FAMIL Y Jun 24, 2009 [id number] RUBI GARAYNETH PATIENT [place] FEP PREFERRED PROVIDER ORGANIZAT ION (PPO) BASIC FAMIL Y Jun 24, 2009 112 [id number] [phone] RUBI GARAYNETH PATIENT [place] FEP PREFERRED PROVIDER ORGANIZAT ION (PPO) BASIC FAMIL Y Jun 24, 2009 [id number] [phone] RUBI GARAYNETH PATIENT [place] FEP DENTAL DENTAL INSURANCE BASIC Jul 12, 2009 DENTAL [id number] DEJAHDANIKARUBI ACEVESNETH PATIENT [place] FEP PREFERRED PROVIDER ORGANIZAT ION (PPO) BASIC FAMIL Y Jun 24, 2009 [id number] ABHILASH GARAY PATIENT [employer] FEP ([id number]) PRESCRIPT ION FEPRX Jun 24, 2009 [id number] [phone] ABHILASH GARAY PATIENT [employer] FEP BCBS PRESCRIPT ION CAREM ARK FEPRX PLAN Nov 21, 2021 [id number] ABHILASH GARAY PATIENT [employer] FEPRX PLAN PRESCRIPT ION CAREM ARK FEPRX Nov 21, 2021 [id number] ABHILASH GARAY PATIENT [employer]-F EP BCBS PRESCRIPT ION FEP CAREM ARK Nov 21, 2021 [id number] ABHILASH GARAY PATIENT [employer]-F EP BCBS PRESCRIPT ION FEP Jun 23, 2010 [id number] RUBI GARAYNETH PATIENT MEDICARE ([facility]) MEDICARE () PART A Feb 22, 2020 PART A [id number] ABHILASH GARAY PATIENT MEDICARE (WNR) MEDICARE (M) PART A Feb 22, 2020 PART A [id number] ABHILASH GARAY PATIENT MEDICARE (WNR) MEDICARE (M) PART A Feb 22, 2020 PART A [id number] ABHILASH GARAY PATIENT MEDICARE (WNR) MEDICARE (M) PART A Feb 22, 2020 PART A [id number] [id number] ABHILASH GARAY PATIENT MEDICARE (WNR) MEDICARE (M) PART A Feb 22, 2020 PART A [id number] ABHILASH GARAY PATIENT Selected Encounter This section includes the information on record at [place] for the Encounter. Date/Time Encounter Type Encounter Description Reason Pro vider Source Sep 23, 2023 03:59 PM Outpatient Encounter ADMIN PAT ACTIVTIES (MASNONCT) [...] 29, 2023 11:00 AM AMBULATORY - MEDICINE [facility] [place] [facility] Oct 02, 2023 01:00 PM AMBULATORY - MEDICINE [place] [facility] Oct 06, 2023 11:00 AM AMBULATORY - MEDICINE [place] [facility] Oct 06, 2023 12:40 PM AMBULATORY - MEDICINE [place] [facility] Oct 09, 2023 01:00 PM AMBULATORY - MEDICINE [place] [facility] Oct 13, 2023 11:00 AM AMBULATORY - MEDICINE [place] [facility] Oct 16, 2023 01:00 PM AMBULATORY - MEDICINE [facility] [place] [facility] Oct 20, 2023 11:00 AM AMBULATORY - MEDICINE [place] [facility] October 23, 2023 01:00 PM AMBULATORY - MEDICINE [place] [facility] October 27, 2023 11:00 AM AMBULATORY - MEDICINE [place] [facility] November 03, 2023 11:00 AM AMBULATORY - MEDICINE [place] [facility] November 03, 2023 01:00 PM AMBULATORY - MEDICINE [place] [facility] November 06, 2023 01:00 PM AMBULATORY - MEDICINE [place] [facility] November 06, 2023 02:00 PM AMBULATORY - MEDICINE [place] [facility] November 10, 2023 11:00 AM AMBULATORY - MEDICINE [place] [facility] November 13, 2023 10:30 AM AMBULATORY - MEDICINE [place] [facility] November 18, 2023 11:00 AM AMBULATORY - MEDICINE [place] [facility] November 20, 2023 10:30 AM AMBULATORY - MEDICINE [place] [facility] November 20, 2023 01:00 PM AMBULATORY - MEDICINE [place] [facility] Nov 27, 2023 02:00 PM AMBULATORY - MEDICINE [facility] Social History: Smoking Status (Most current) [...] 2023 09:12 AM VA-TOBACCO NEVER USED [place] [facility] Tobacco Use History This section includes a history of the smoking, or tobacco-related health factors, that were collected on or before the date of the Encounter. The data comes from the [place] facility where the Encounter took place. Date/Time Smoking Status/Tobacco Use Comment F acjaved Aug 09, 2021 09:20 AM [facility] Encounter Notes: All associated encounter notes This section contains the clinical notes associated to the Encounter. Date/Time Encounter Note(s) Provider Source Sep 23, 2023 04:37 PM ADDENDUM: LOCAL TITLE: Addendum STANDARD TITLE: ADDENDUM DATE OF NOTE: SEP 23, 2023@16:37:20 ENTRY DATE: SEP 23, 2023@16:37:21 AUTHOR: RADHIKA GOMEZ COSIGNER: URGENCY: STATUS: COMPLETED Called [facility]ens and he reports that he is taking potassium supplements 1 tablet twice daily. Author advised him of previous order for 2 tablets twice daily that has now . reports that he has approximately one week supply left if continues to take 2 tablets a day of potassium medication. Author advised that will request that PACT AMSA contact to assist with scheduling appt with new PCP. /es/ BREANNA BAKER RN-BC REGISTERED NURSE Signed: 09/23/2023 16:40 Receipt Acknowledged By: 09/23/2023 18:06 /es/ JEAN CLAUDE MENDEZ CERTIFIED NURSE PRACTITIONER for VESTA BLISS 09/25/2023 13:52 /yunior/ LUNA LOPEZ ADVANCED HEALTH SCIENCE SPECIALIST === --- Original Document --- 09/23/23 CCC: SCHEDULING ADMINISTRATION: Patient Demographics Patient Name: ABHILASH GARAY Patient Primary Phone: [phone] Patient Primary Address: [address] [place] [phone] Patient : 1955 Patient Age: 68 Caller/Recipient Relation to Patient: Self Administrative Administrative Note Reason: Other [place] Medications Refill/Renewal Request: Rx # - Medication Name - Dosage - SIG - Number of Refills - Facility - Status [id number] - POTASSIUM CITRATE 10MEQ SA TAB - Medication - 2 TABLETS - TAKE TWO TABLETS BY MOUTH TWICE DAILY - 0 - [facility] 631 - Administrative Note Comments: calling to clarify this request. Dickens states he has been taking this for years and only has about a week left of them. Dickens states he takes these for Kidney stones and would like to have this prescription sent before he runs out. Dickens is requesting a call back at phone number on file to discuss or confirm. Please advise. dipti HACKETT [id number] AMSA Signed: 09/23/2023 15:59 Receipt Acknowledged By: 09/23/2023 16:37 /es/ BREANNA BAKER RN-BC REGISTERED NURSE 09/23/2023 16:10 /es/ EUGENIE SALVADOR LPN Licensed Practical Nurse 09/25/2023 ADDENDUM STATUS: UNSIGNED You may not VIEW this UNSIGNED Addendum. RADHIKA GOMEZ [facility] Sep 23, 2023 03:59 PM ADMINISTRATIVE NOTE: LOCAL TITLE: CCC: SCHEDULING ADMINISTRATION STANDARD TITLE: ADMINISTRATIVE NOTE DATE OF NOTE: SEP 23, 2023@15:59:41 ENTRY DATE: SEP 23, 2023@15:59:41 AUTHOR: LEELEE HACKETT EXP COSIGNER: URGENCY: STATUS: COMPLETED CCC: SCHEDULING ADMINISTRATION Has ADDENDA Patient Demographics Patient Name: ABHILASH GARAY Patient Primary Phone: [phone] Patient Primary Address: [address] [place] [address] Patient : 1955 Patient Age: 68 Caller/Recipient Relation to Patient: Self Administrative Administrative Note Reason: Other [place] Medications Refill/Renewal Request: Rx # - Medication Name - Dosage - SIG - Number of Refills - Facility - Status [id number] - POTASSIUM CITRATE 10MEQ SA TAB - Medication - 2 TABLETS - TAKE TWO TABLETS BY MOUTH TWICE DAILY - 0 - [facility] - 631 - Administrative Note Comments: Dickens calling to clarify this request. Dickens states he has been taking this for years and only has about a week left of them. Dickens states he takes these for Kidney stones and would like to have this prescription sent before he runs out. Dickens is requesting a call back at phone number on file to discuss or confirm. Please advise. dipti HACKETT [id number] AMSA Signed: 09/23/2023 15:59 Receipt Acknowledged By: 09/23/2023 16:37 /es/ BREANNA BAKER RN-BC REGISTERED NURSE 09/23/2023 16:10 /es/ EUGENIE SALVADOR LPN Licensed Practical Nurse 09/23/2023 ADDENDUM STATUS: COMPLETED Called Dickens and he reports that he is taking potassium supplements 1 tablet twice daily. Author advised him of previous order for 2 tablets twice daily that has now . Dickens reports that he has approximately one week supply left if continues to take 2 tablets a day of potassium medication. Author advised that will request that PACT AMSA contact Dickens to assist with scheduling appt with new PCP. /yunior/ BREANNA BAKER RN-BC REGISTERED NURSE Signed: 09/23/2023 16:40 Receipt Acknowledged By: 09/23/2023 18:06 /es/ JEAN CLAUDE MENDEZ CERTIFIED NURSE PRACTITIONER for VESTA BLISS 09/25/2023 13:52 /es/ LUNA LOPEZ ADVANCED HEALTH SCIENCE SPECIALIST 09/25/2023 ADDENDUM STATUS: COMPLETED THIS MEDICAL REFERRAL COORDINATOR HAD SPOKEN TO TO SCHEDULE F2F F/U APPT. WITH CWM/SO/PACT EIGHT PROVIDER ON 10/31/2023 AT 15:30 FOR DISCUSS MEDICATIONS. THIS MEDICAL REFERRAL COORDINATOR ALSO SCHEDULED F2F ANNUAL APPT ON 04/06/2024 AT 10:30AM WITH CWM/SO/PACT EIGHT PROVIDER. /yunior/ LUNA LOPEZ ADVANCED HEALTH SCIENCE SPECIALIST Signed: 09/25/2023 13:54 [facility] [place] [facility]
--- OUTSIDE RECORDS SUMMARY | 2024-06-29 18:56 | XMS_ITS | Encounter Summary ---
Author Name [facility] [place] Address [address] [place] [address] Care Team Providers Care Cashier Receptionist Name Role Phone ABDIRAHMAN LAKE Primary Care [...] BASIC FAMIL Y Jun 24, 2009 112 [id number] [phone] ABHILASH GARAY PATIENT ANTHEM [place]BS [place] F[place] PREFERRED PROVIDER ORGANIZAT ION (PPO) FEP BASIC FAM Jun 24, 2009 112 [id number] [phone] ABHILASH GARAY PATIENT ANTHEM BCBS [place] FEP PREFERRED PROVIDER ORGANIZAT ION (PPO) FEP BASIC FAM Jun 24, 2009 112 [id number] [phone] ABHILASH GARAY PATIENT ANTHEM [place] PREFERRED PROVIDER ORGANIZAT ION (PPO) FEP BASIC FAM Jun 24, 2009 112 [id number] [phone] ABHILASH GARAY PATIENT [place]BS [place] FEP PREFERRED PROVIDER ORGANIZAT ION (PPO) FEP BASIC FAM Jun 24, 2009 112 [id number] [phone] RUBI GARAYNETH PATIENT BCBS [place] FEP PREFERRED PROVIDER ORGANIZAT ION (PPO) BASIC FAMIL Y Jun 24, 2009 [id number] RUBI GARAYNETH PATIENT [place] PREFERRED PROVIDER ORGANIZAT ION (PPO) BASIC FAMIL Y Jun 24, 2009 112 [id number] RUBI GARAYNETH PATIENT [place] FEP PREFERRED PROVIDER ORGANIZAT ION (PPO) BASIC FAMIL Y Jun 24, 2009 112 [id number] RUBI GARAYNETH PATIENT [place] FEP DENTAL DENTAL INSURANCE BASIC Jul 12, 2009 DENTAL [id number] [phone] DEJAHDANIKARUBI ACEVESNETH PATIENT [place] FEP PREFERRED PROVIDER ORGANIZAT ION (PPO) BASIC FAMIL Y Jun 24, 2009 [id number] ABHILASH GARAY PATIENT [place] FEP ([id number]) PRESCRIPT ION FEPRX Jun 24, 2009 [id number] [phone] ABHILASH GARAY PATIENT [place] FEP BCBS PRESCRIPT ION CAREM ARK FEPRX PLAN Nov 21, 2021 [id number] ABHILASH GARAY PATIENT [place] FEPRX PLAN PRESCRIPT ION CAREM ARK FEPRX Nov 21, 2021 [id number] ABHILASH GARAY PATIENT [place]EMARK-F EP BCBS PRESCRIPT ION FEP CAREM ARK Nov 21, 2021 [id number] ABHILASH GARAY PATIENT [place]-F EP BCBS PRESCRIPT ION FEP Jun 23, 2010 [id number] RUBI GARAYNETH PATIENT MEDICARE ([facility]) MEDICARE () PART A Feb 22, 2020 PART A [id number] [phone] ABHILASH GARAY PATIENT MEDICARE (WNR) MEDICARE (M) PART A Feb 22, 2020 PART A [id number] ABHILASH GARAY PATIENT MEDICARE (WNR) MEDICARE (M) PART A Feb 22, 2020 PART A [id number] ABHILASH GARAY PATIENT MEDICARE (WNR) MEDICARE (M) PART A Feb 22, 2020 PART A [id number] ABHILASH GARAY PATIENT MEDICARE (WNR) MEDICARE (M) PART A Feb 22, 2020 PART A [id number] ABHILASH GARAY PATIENT Selected Encounter This section includes the information on record at [place] for the Encounter. Date/Time Encounter Type Encounter Description Reason Pro vider Source Sep 22, 2023 01:12 PM Outpatient Encounter ADMIN PAT ACTIVTIES (MASNONCT) [...] 29, 2023 11:00 AM AMBULATORY - MEDICINE [facility] [place] [facility] Oct 02, 2023 01:00 PM AMBULATORY - MEDICINE [place] C [place] [facility] Oct 06, 2023 11:00 AM AMBULATORY - MEDICINE [place] C [place] [facility] Oct 06, 2023 12:40 PM AMBULATORY - MEDICINE [place] C [place] [facility] Oct 09, 2023 01:00 PM AMBULATORY - MEDICINE [place] C [place] [facility] Oct 13, 2023 11:00 AM AMBULATORY - MEDICINE [place] C [place] [facility] Oct 16, 2023 01:00 PM AMBULATORY - MEDICINE [facility] [place] [facility] Oct 20, 2023 11:00 AM AMBULATORY - MEDICINE [place] C [place] [facility] October 23, 2023 01:00 PM AMBULATORY - MEDICINE [place] C [place] [facility] October 27, 2023 11:00 AM AMBULATORY - MEDICINE [place] [facility] [place] [facility] November 03, 2023 11:00 AM AMBULATORY - MEDICINE [place] [facility] November 03, 2023 01:00 PM AMBULATORY - MEDICINE [place] [facility] November 06, 2023 01:00 PM AMBULATORY - MEDICINE [place] [facility] [place] [facility] November 06, 2023 02:00 PM AMBULATORY - MEDICINE [place] [facility] [place] [facility] November 10, 2023 11:00 AM AMBULATORY - MEDICINE [place] [facility] [place] [facility] November 13, 2023 10:30 AM AMBULATORY - MEDICINE [place] [facility] [place] [facility] November 18, 2023 11:00 AM AMBULATORY - MEDICINE [place] [facility] [place] [facility] November 20, 2023 10:30 AM AMBULATORY - MEDICINE [place] [facility] [place] [facility] November 20, 2023 01:00 PM AMBULATORY - MEDICINE [place] C [place] [facility] Nov 27, 2023 02:00 PM AMBULATORY - MEDICINE [facility] Social [...] 08, 2023 09:12 AM VA-TOBACCO NEVER USED [place] [facility] Tobacco Use History This section includes a history of the smoking, or tobacco-related health factors, that were collected on or before the date of the Encounter. The data comes from the [place] facility where the Encounter took place. Date/Time Smoking Status/Tobacco Use Comment F acjaved Aug 09, 2021 09:20 AM [facility] Encounter Notes: All associated encounter notes This section contains the clinical notes associated to the Encounter. Date/Time Encounter Note(s) Provider Source Sep 22, 2023 01:12 PM PHARMACY NOTE: LOCAL TITLE: V1 PHARMACY CUSTOMER CARE MEDICATION RENEWAL STANDARD TITLE: PHARMACY NOTE DATE OF NOTE: SEP 22, 2023@13:12 ENTRY DATE: SEP 22, 2023@13:12:29 AUTHOR: JONATAN SAMANO COSIGNER: URGENCY: STATUS: COMPLETED V1 PHARMACY CUSTOMER CARE MEDICATION RENEWAL Has ADDENDA Date: Sep Division: [facility] referred by Pharmacy Call Center for medication renewal: Non-controlled/maintenance medication Medications requested: [id number] POTASSIUM CITRATE 10MEQ SA TAB PLEASE NOTE: This medication is long . Please review as the has requested to renew it. Defer to primary care provider To be mailed . Please review and renew if appropriate. *This note was generated by [facility]/[place] Pharmacy Customer Care. If you have any questions or need assistance, do not contact this author. Please refer all questions to your local, on-site pharmacy departments. /yunior/ JONATAN SAMANO CPhT Field Staff, [place]/Pharmacy Customer Care Signed: 09/22/2023 13:14 Receipt Acknowledged By: 09/23/2023 06:47 /yunior/ GE PEREIRA NP NURSE PRACTITIONER for GREGG HARMON 09/23/2023 08:13 /yunior/ BREANNA BAKER RN-BC REGISTERED NURSE 09/23/2023 ADDENDUM STATUS: COMPLETED Called [place] and left voicemail requesting call back to [facility] at [phone] to discuss above request. /yunior/ BREANNA BAKER RN-BC REGISTERED NURSE Signed: 09/23/2023 08:14 JONATAN SAMANO [place] CN[facility]
--- OUTSIDE RECORDS SUMMARY | 2024-06-29 18:56 | XMS_ITS ---
Author Name [facility] [place] Address [address] [place] [address] Care Team Providers Care Map Colorer Name Role Phone ABDIRAHMAN LAKE Primary Care [...] BASIC FAMIL Y Jun 24, 2009 [id number] [phone] ABHILASH GARAY PATIENT ANTHEM BCBS [place] FEP PREFERRED PROVIDER ORGANIZAT ION (PPO) FEP BASIC FAM Jun 24, 2009 112 [id number] [phone] ABHILASH GARAY PATIENT ANTHEM BCBS [place] F[place] PREFERRED PROVIDER ORGANIZAT ION (PPO) FEP BASIC FAM Jun 24, 2009 112 [id number] [phone] ABHILASH GARAY PATIENT [place] PREFERRED PROVIDER ORGANIZAT ION (PPO) FEP BASIC FAM Jun 24, 2009 112 [id number] [phone] ABHILASH GARAY PATIENT [place] F[place] PREFERRED PROVIDER ORGANIZAT ION (PPO) FEP BASIC FAM Jun 24, 2009 112 [id number] [phone] RUBI GARAYNETH PATIENT [place]BS [place] F[place] PREFERRED PROVIDER ORGANIZAT ION (PPO) BASIC FAMIL Y Jun 24, 2009 [id number] ABHILASH GARAY PATIENT [place] F[place] PREFERRED PROVIDER ORGANIZAT ION (PPO) BASIC FAMIL Y Jun 24, 2009 [id number] ABHILASH GARAY PATIENT [place] F[place] PREFERRED PROVIDER ORGANIZAT ION (PPO) BASIC FAMIL Y Jun 24, 2009 112 [id number] RUBI GARAYNETH PATIENT [place] F[place] DENTAL DENTAL INSURANCE BASIC Jul 12, 2009 DENTAL [id number] 62 RUBI GARAYNETH PATIENT [place] F[place] PREFERRED PROVIDER ORGANIZAT ION (PPO) BASIC FAMIL Y Jun 24, 2009 112 [id number] [phone] ABHILASH GARAY PATIENT [employer] FEP ([id number]) PRESCRIPT ION FEPRX Jun 24, 2009 [id number] [phone] ABHILASH GARAY PATIENT [place] FEP BCBS PRESCRIPT ION CAREM ARK FEPRX PLAN Nov 21, 2021 [id number] ABHILASH GARAY PATIENT [employer] FEPRX PLAN PRESCRIPT ION CAREM ARK FEPRX Nov 21, 2021 [id number] ABHILASH GARAY PATIENT [place]-F EP BCBS PRESCRIPT ION FEP CAREM ARK Nov 21, 2021 [id number] ABHILASH GARAY PATIENT [place]-F EP BCBS PRESCRIPT ION FEP Jun 23, 2010 [id number] DEJAHDANIKARUBI ACEVESNETH PATIENT MEDICARE ([facility] MEDICARE () PART A Feb 22, 2020 PART A [id number] ABHILASH GARAY PATIENT MEDICARE (WNR) MEDICARE (M) PART A Feb 22, 2020 PART A [id number] NV71 [phone] ABHILASH GARAY PATIENT MEDICARE (WNR) MEDICARE (M) PART A Feb 22, 2020 PART A [id number] ABHILASH GARAY PATIENT MEDICARE (WNR) MEDICARE (M) PART A Feb 22, 2020 PART A [id number] ABHILASH GARAY PATIENT MEDICARE (WNR) MEDICARE (M) PART A Feb 22, 2020 PART A [id number] ABHILASH GARAY PATIENT Selected Encounter This section includes the information on record at [place] for the Encounter. Date/Time Encounter Type Encounter Description Reason Provider Source Sep 15, 2023 03:15 PM COLLJ & INTERPJ DATA EA 30 D TELEPHONE/MEDICINE ICD-10-CM G47.39 Other sleep apnea JANIE CARPIO [facility] Encounter Template Text not used by [place] Assessments - Encounter Diagnoses This section includes the primary and secondary diagnoses documented for the Encounter. Date/Time Primary/Secondary Diagnosis Diagnosis Name Provider Source Sep 15, 2023 03:15 PM PRIMARY Other sleep apnea JANIE CARPIO [facility] Plan of Treatment: Future Appointments (+ [...] - MEDICINE [place] [facility] Sep 29, 2023 11:00 AM AMBULATORY - MEDICINE IN C [place] [facility] Oct 02, 2023 01:00 PM AMBULATORY - MEDICINE IN C [place] [facility] Oct 06, 2023 11:00 AM AMBULATORY - MEDICINE [place] C [place] [facility] Oct 06, 2023 12:40 PM AMBULATORY - MEDICINE [place] C [place] [facility] Oct 09, 2023 01:00 PM AMBULATORY - MEDICINE [place] C [place] [facility] Oct 13, 2023 11:00 AM AMBULATORY - MEDICINE [place] [facility] Oct 16, 2023 01:00 PM AMBULATORY - MEDICINE [place] [facility] Oct 20, 2023 11:00 AM AMBULATORY - MEDICINE [place] [facility] October 23, 2023 01:00 PM AMBULATORY - MEDICINE [place] [facility] October 27, 2023 11:00 AM AMBULATORY - MEDICINE [place] [facility] November 03, 2023 11:00 AM AMBULATORY - MEDICINE [place] [facility] [place] [facility] November 03, 2023 01:00 PM AMBULATORY - MEDICINE [place] [facility] [place] [facility] November 06, 2023 01:00 PM AMBULATORY - MEDICINE [place] [facility] [place] [facility] November 06, 2023 02:00 PM AMBULATORY - MEDICINE [place] [facility] [place] [facility] November 10, 2023 11:00 AM AMBULATORY - MEDICINE [place] [facility] [place] [facility] November 13, 2023 10:30 AM AMBULATORY - MEDICINE [place] [facility] [place] [facility] November 18, 2023 11:00 AM AMBULATORY - MEDICINE [place] [facility] [place] [facility] November 20, 2023 10:30 AM AMBULATORY - MEDICINE [place] [facility] November 20, 2023 01:00 PM AMBULATORY [...] VA-TOBACCO NEVER USED IN [place]TR [place] [facility] Tobacco Use History This section includes a history of the smoking, or tobacco-related health factors, that were collected on or before the date of the Encounter. The data comes from the [place] facility where the Encounter took place. Date/Time Smoking Status/Tobacco Use Comment F acility Aug 09, 2021 09:20 AM VA-TOBACCO NEVER USED [place] [facility] Encounter Notes: All associated encounter notes This section contains the clinical notes associated to the Encounter. Date/Time Encounter Note(s) Provider Source Sep 15, 2023 03:15 PM RESPIRATORY THERAP Y NOTE: LOCAL TITLE: RESPIRATORY THERAPY NOTE(BLANK) STANDARD TITLE: RESPIRATORY THERAPY NOTE DATE OF NOTE: SEP 15, 2023@15:15 ENTRY DATE: SEP 15, 2023@15:15:30 AUTHOR: JANIE CARPIO EXP COSIGNER: URGENCY: STATUS: COMPLETED Patient diagnosed with sleep apnea data reviewed for Cpap renewal and supplies ordered from [facility]. [employer] COMPLIANCE [employer] Patient APAP compliance data reviewed via the [employer] program for the last 90 days. SETTINGS: Apap 5 - [id number] TOTAL DAYS USED 90 DAYS USED > 4hrs 90 AVG USAGE 9 hours AVG PRESSURE 12htQ22 LEAK 2 AHI: 3 Central 1 These results indicate [place] is compliant. 's APAP Prescription will be renewed for 1 year. If pt has any questions or concerns regarding Apap, he/she can contact Respiratory at [phone] extension [phone]. /es/ JANIE CARPIO CRT RESPIRATORY THERAPIST Signed: 09/15/2023 15:21 JANIE CARPIO
--- OUTSIDE RECORDS SUMMARY | 2024-06-29 18:56 | XMS_ITS | Encounter Summary ---
Author Name [facility] [place] [facility] [place] Address [address] [place] [address] Care Team Providers Care Professor Of Psychiatry Name Role Phone ABDIRAHMAN LAKE Primary Care [...] BASIC FAMIL Y Jun 24, 2009 [id number] [phone] ABHILASH GARAY PATIENT ANTHEM BCBS [place] FEP PREFERRED PROVIDER ORGANIZAT ION (PPO) FEP BASIC FAM Jun 24, 2009 [id number] [phone] ABHILASH GARAY PATIENT ANTHEM [place]BS [place] F[place] PREFERRED PROVIDER ORGANIZAT ION (PPO) FEP BASIC FAM Jun 24, 2009 112 [id number] [phone] ABHILASH GARAY PATIENT [place] PREFERRED PROVIDER ORGANIZAT ION (PPO) FEP BASIC FAM Jun 24, 2009 112 [id number] [phone] ABHILASH GARAY PATIENT [place] PREFERRED PROVIDER ORGANIZAT ION (PPO) FEP BASIC FAM Jun 24, 2009 112 [id number] [phone] RUBI GARAYNETH PATIENT [place]BS [place] PREFERRED PROVIDER ORGANIZAT ION (PPO) BASIC FAMIL Y Jun 24, 2009 112 [id number] [phone] RUBI GARAYNETH PATIENT [place] FEP PREFERRED PROVIDER ORGANIZAT ION (PPO) BASIC FAMIL Y Jun 24, 2009 [id number] RUBI GARAYNETH PATIENT [place] FEP PREFERRED PROVIDER ORGANIZAT ION (PPO) BASIC FAMIL Y Jun 24, 2009 [id number] [phone] RUBI GARAYNETH PATIENT [place] FEP DENTAL DENTAL INSURANCE BASIC Jul 12, 2009 DENTAL [id number] DEJAHDANIKARUBI ACEVESNETH PATIENT [place] FEP PREFERRED PROVIDER ORGANIZAT ION (PPO) BASIC FAMIL Y Jun 24, 2009 [id number] ABHILASH GARAY PATIENT [place] FEP ([id number]) PRESCRIPT ION FEPRX Jun 24, 2009 [id number] [phone] ABHILASH GARAY PATIENT [place] FEP BCBS PRESCRIPT ION CAREM ARK FEPRX PLAN Nov 21, 2021 [id number] ABHILASH GARAY PATIENT [employer] FEPRX PLAN PRESCRIPT ION CAREM ARK FEPRX Nov 21, 2021 [id number] [phone] ABHILASH GARAY PATIENT [place]-F EP BCBS PRESCRIPT ION FEP CAREM ARK Nov 21, 2021 [id number] ABHILASH GARAY PATIENT [place]-F EP BCBS PRESCRIPT ION FEP Jun 23, 2010 [id number] RUBI GARAYNETH PATIENT MEDICARE ([facility]) MEDICARE () PART A Feb 22, 2020 PART A [id number] [phone] ABHILASH GARAY PATIENT MEDICARE (WNR) MEDICARE (M) PART A Feb 22, 2020 PART A [id number] NV71 [phone] ABHILASH GARAY PATIENT MEDICARE (WNR) MEDICARE (M) PART A Feb 22, 2020 PART A [id number] ABHILASH GARAY PATIENT MEDICARE (WNR) MEDICARE (M) PART A Feb 22, 2020 PART A [id number] NV71 [phone] ABHILASH GARAY PATIENT MEDICARE (WNR) MEDICARE (M) PART A Feb 22, 2020 PART A [id number] [id number] [phone] ABHILASH GARAY PATIENT Selected Encounter This section includes the information on record at [place] for the Encounter. Date/Time Encounter Type Encounter Description Reason Pro vider Source Sep 23, 2023 12:04 PM Outpatient Encounter ADMIN PAT ACTIVTIES (MASNONCT) [...] 29, 2023 11:00 AM AMBULATORY - MEDICINE [facility] [place] [facility] Oct 02, 2023 01:00 PM AMBULATORY - MEDICINE [place] [facility] Oct 06, 2023 11:00 AM AMBULATORY - MEDICINE [place] [facility] Oct 06, 2023 12:40 PM AMBULATORY - MEDICINE [place] [facility] Oct 09, 2023 01:00 PM AMBULATORY - MEDICINE [place] [facility] Oct 13, 2023 11:00 AM AMBULATORY - MEDICINE [place] [facility] Oct 16, 2023 01:00 PM AMBULATORY - MEDICINE [facility] [place] [facility] Oct 20, 2023 11:00 AM AMBULATORY - MEDICINE [place] [facility] October 23, 2023 01:00 PM AMBULATORY - MEDICINE [place] [facility] October 27, 2023 11:00 AM AMBULATORY - MEDICINE [place] [facility] [place] [facility] November 03, 2023 11:00 AM AMBULATORY - MEDICINE [place] [facility] [place] [facility] November 03, 2023 01:00 PM AMBULATORY - MEDICINE [place] [facility] [place] [facility] November 06, 2023 01:00 PM AMBULATORY - MEDICINE [place] [facility] [place] [facility] November 06, 2023 02:00 PM AMBULATORY - MEDICINE [place] [facility] [place] [facility] November 10, 2023 11:00 AM AMBULATORY - MEDICINE [place] [facility] [place] [facility] November 13, 2023 10:30 AM AMBULATORY - MEDICINE [place] [facility] [place] [facility] November 18, 2023 11:00 AM AMBULATORY - MEDICINE [place] [facility] [place] [facility] November 20, 2023 10:30 AM AMBULATORY - MEDICINE [place] [facility] [place] [facility] November 20, 2023 01:00 PM AMBULATORY - MEDICINE [place] [facility] [place] [facility] Nov 27, 2023 02:00 PM AMBULATORY - MEDICINE [facility] Social History: Smoking Status (Most current) [...] 08, 2023 09:12 AM VA-TOBACCO NEVER USED [place] [facility] Tobacco Use History This section includes a history of the smoking, or tobacco-related health factors, that were collected on or before the date of the Encounter. The data comes from the [place] facility where the Encounter took place. Date/Time Smoking Status/Tobacco Use Comment F acjaved Aug 09, 2021 09:20 AM [facility] Encounter Notes: All associated encounter notes This section contains the clinical notes associated to the Encounter. Date/Time Encounter Note(s) Provider Source Sep 23, 2023 12:04 PM ADMINISTRATIVE NOTE: LOCAL TITLE: CCC: SCHEDULING ADMINISTRATION STANDARD TITLE: ADMINISTRATIVE NOTE DATE OF NOTE: SEP 23, 2023@12:04:55 ENTRY DATE: SEP 23, 2023@12:04:55 AUTHOR: BRIAN ZAMBRANO COSIGNER: URGENCY: STATUS: COMPLETED Patient Demographics Patient Name: ABHILASH GARAY Patient Primary Phone: [phone] Patient Primary Address: [address] [place] [address] Patient : 1955 Patient Age: 68 Caller/Recipient Relation to Patient: Self Administrative Administrative Note Reason: Returned Call Administrative Note Comments: [place] returned call to RN (see pharmacy note 4/) and requests call back /yunior/ BRIAN ZAMBRANO [employer] Signed: 09/23/2023 12:05 Receipt Acknowledged By: 09/23/2023 16:40 /es/ BREANNA BAKER RN-BC REGISTERED NURSE 09/23/2023 13:08 /yunior/ EUGENIE SALVADOR LPN Licensed Practical Nurse BRIAN ZAMBRANO [facility]
--- OUTSIDE RECORDS SUMMARY | 2024-06-29 18:57 | XMS_ITS | Encounter Summary ---
Author Name [facility] [facility] [place] [facility] [place] Address [address] [place] [address] Care Team Providers Care Global Coordinator Name Role Phone ABDIRAHMAN LAKE Primary [...] BASIC FAMIL Y Jun 24, 2009 112 [id number] [phone] ABHILASH GARAY PATIENT ANTHEM [place]BS [place] F[place] PREFERRED PROVIDER ORGANIZAT ION (PPO) FEP BASIC FAM Jun 24, 2009 112 [id number] [phone] ABHILASH GARAY PATIENT ANTHEM BCBS [place] FEP PREFERRED PROVIDER ORGANIZAT ION (PPO) FEP BASIC FAM Jun 24, 2009 112 [id number] [phone] ABHILASH GARAY PATIENT ANTHEM [place] F[place] PREFERRED PROVIDER ORGANIZAT ION (PPO) FEP BASIC FAM Jun 24, 2009 112 [id number] [phone] ABHILASH GARAY PATIENT [place] F[place] PREFERRED PROVIDER ORGANIZAT ION (PPO) FEP BASIC FAM Jun 24, 2009 112 [id number] [phone] RUBI GARAYNETH PATIENT BCBS [place] FEP PREFERRED PROVIDER ORGANIZAT ION (PPO) BASIC FAMIL Y Jun 24, 2009 112 [id number] [phone] RUBI GARAYNETH PATIENT [place] PREFERRED PROVIDER ORGANIZAT ION (PPO) BASIC FAMIL Y Jun 24, 2009 [id number] RUBI GARAYNETH PATIENT [place] F[place] PREFERRED PROVIDER ORGANIZAT ION (PPO) BASIC FAMIL Y Jun 24, 2009 112 [id number] [phone] RUBI GARAYNETH PATIENT [place] F[place] DENTAL DENTAL INSURANCE BASIC Jul 12, 2009 DENTAL [id number] [phone] DEJAHDANIKARUBI ACEVESNETH PATIENT [place] F[place] PREFERRED PROVIDER ORGANIZAT ION (PPO) BASIC FAMIL Y Jun 24, 2009 [id number] ABHILASH GARAY PATIENT [place] FEP ([id number]) PRESCRIPT ION FEPRX Jun 24, 2009 [id number] [phone] ABHILSAH GARAY PATIENT [place] FEP BCBS PRESCRIPT ION CAREM ARK FEPRX PLAN Nov 21, 2021 [id number] ABHILASH GARAY PATIENT [place] FEPRX PLAN PRESCRIPT ION CAREM ARK FEPRX Nov 21, 2021 [id number] ABHILASH GARAY PATIENT [place]-F EP BCBS PRESCRIPT ION FEP CAREM ARK Nov 21, 2021 [id number] ABHILASH GARAY PATIENT [place]-F EP BCBS PRESCRIPT ION FEP Jun 23, 2010 [id number] RUBI GARAYNETH PATIENT MEDICARE ([place]) MEDICARE () PART A Feb 22, 2020 PART A [id number] [phone] ABHILASH GARAY PATIENT MEDICARE (WNR) MEDICARE (M) PART A Feb 22, 2020 PART A [id number] ABHILASH GARAY PATIENT MEDICARE (WNR) MEDICARE (M) PART A Feb 22, 2020 PART A [id number] ABHILASH GARAY PATIENT MEDICARE (WNR) MEDICARE (M) PART A Feb 22, 2020 PART A [id number] [phone] ABHILASH GARAY PATIENT MEDICARE (WNR) MEDICARE (M) PART A Feb 22, 2020 PART A [id number] ABHILASH GARAY PATIENT Selected Encounter This section includes the information on record at [place] for the Encounter. Date/Time Encounter Type Encounter Description Reason Pro vider Source Oct 15, 2023 01:47 PM Outpatient Encounter ADMIN PAT ACTIVTIES (MASNONCT) IHE Encounter Template Text not used by [place] Plan of Treatment: Future Appointments (+ 6 [...] Appointment Type Appointme nt Facility Name Oct 16, 2023 01:00 PM AMBULATORY - MEDICINE [facility] [facility] Oct 20, 2023 11:00 AM AM[place]ULATORY [place]ICINE [place] [facility] [place] [facility] October 23, 2023 01:00 PM AMBULATORY [place] MEDICINE [place] [facility] [place] [facility] October 27, 2023 11:00 AM AMBULATORY - MEDICINE [place] [facility] [place] [facility] November 03, 2023 11:00 AM AMBULATORY - MEDICINE [place] [facility] [facility] November 03, 2023 01:00 PM AMBULATORY - MEDICINE [place] [facility] [place] [facility] November 06, 2023 01:00 PM AMBULATORY - MEDICINE [facility] [place] [facility] [...] 27, 2023 02:00 PM [facility] Dec 02, 2023 11:00 AM [facility] [place] [facility] Dec 02, 2023 02:30 PM AM[facility]UL[facility]ORY [facility]INE [facility] [place] [facility] Dec 04, 2023 01:00 PM AM[facility]ULATORY [facility]INE [facility] [place] [facility] Dec 08, 2023 11:00 AM AMBULATORY [facility] MEDICINE [facility] [place] [facility] Dec 11, 2023 01:00 PM AM[facility]ULATORY [facility] MEDICINE [facility] [place] [facility] Dec 15, 2023 11:00 AM AM[facility]ULATORY [facility]INE [facility] [place] [facility] Social History: Smoking Status [...] 2023 09:12 AM [place] [facility] [place] [facility] Tobacco Use History This section includes a history of the smoking, or tobacco-related health factors, that were collected on or before the date of the Encounter. The data comes from the [place] facility where the Encounter took place. Date/Time Smoking Status/Tobacco Use Comment F acjaved Aug 09, 2021 09:20 AM [place]-TOBACCO NEVER USED [place] [facility] Encounter Notes: All associated encounter notes This section contains the clinical notes associated to the Encounter. Date/Time Encounter Note(s) Provider Source Oct 15, 2023 04:33 PM ADDENDUM: LOCAL TITLE: Addendum STANDARD TITLE: ADDENDUM DATE OF NOTE: OCT 15, 2023@16:33:36 ENTRY DATE: OCT 15, 2023@16:33:37 AUTHOR: CORINA SOMMER EXP COSIGNER: URGENCY: STATUS: COMPLETED Vet is following up re the levothyroxine. Advised note will be sent. Vet is airing out his frustration about [facility] not [facility] [place]. Provided a listening ear. /es/ Corina CARLOS,RN [facility] 2 [facility] RN Signed: 10/15/2023 16:34 Receipt Acknowledged By: 10/16/2023 11:01 /yunior/ BREANNA BAKER RN-BC REGISTERED NURSE 10/16/2023 09:35 /es/ EUGENIE SALVADOR LPN Licensed Practical Nurse === --- Original Document --- 10/15/23 CCC: SCHEDULING ADMINISTRATION: Patient Demographics Patient Name: ABHILASH GARAY Patient Primary Phone: [phone] Patient Primary Address: [address] [place] [address] Patient : 1955 Patient Age: 68 Caller/Recipient Relation to Patient: Self Administrative Administrative Note Reason: Other Administrative Note Comments: Pt. had bloodwork performed via outside CC and was advised to reduce his Levothyroxine to 125MG, 1 tab PO daily. Pt. advises there was a fax sent a week or two ago of this documentation. Pt. requesting this be filled. Please call pt. to discuss and advise. P: [phone] /yunior/ ARTHUR CHÁVEZ [facility] AMSA Signed: 10/15/2023 13:47 Receipt Acknowledged By: 10/15/2023 19:58 /yunior/ BREANNA BAKER RN-BC REGISTERED NURSE 10/15/2023 14:03 /yunior/ EUGENIE SALVADOR LPN Licensed Practical Nurse 10/15/2023 ADDENDUM STATUS: COMPLETED FORWARDING TO PROVIDER FOR ADVISE. RX DOCUMENTS IN RIGHT FAX FOLDER. /es/ EUGENIE SALVADOR LPN Licensed Practical Nurse Signed: 10/15/2023 14:04 Receipt Acknowledged By: * AWAITING SIGNATURE * VESTA BLISS,CORINA DICKINSON [place] [facility] [facility] Oct 15, 2023 02:03 PM ADDENDUM: LOCAL TITLE: Addendum STANDARD TITLE: ADDENDUM DATE OF NOTE: OCT 15, 2023@14:03:32 ENTRY DATE: OCT 15, 2023@14:03:33 AUTHOR: EUGENIE SALVADOR COSIGNER: URGENCY: STATUS: COMPLETED FORWARDING TO PROVIDER FOR ADVISE. RX DOCUMENTS IN RIGHT FAX FOLDER. /yunior/ EUGENIE SALVADOR LPN Licensed Practical Nurse Signed: 10/15/2023 14:04 Receipt Acknowledged By: 10/28/2023 15:15 /es/ VESTA BLISS MD PRIMARY CARE PHYSICIAN === --- Original Document --- 10/15/23 CCC: SCHEDULING ADMINISTRATION: Patient Demographics Patient Name: ABHILASH GARAY Patient Primary Phone: [phone] Patient Primary [address]: [address] [place] [id number] Patient : 1955 Patient Age: 68 Caller/Recipient Relation to Patient: Self Administrative Administrative Note Reason: Other Administrative Note Comments: Pt. had bloodwork performed via outside CC and was advised to reduce his Levothyroxine to 125MG, 1 tab PO daily. Pt. advises there was a fax sent a week or two ago of this documentation. Pt. requesting this be filled. Please call pt. to discuss and advise. P: [phone] /es/ ARTHUR CHÁVEZ [facility] AMSA Signed: 10/15/2023 13:47 Receipt Acknowledged By: 10/15/2023 19:58 /yunior/ BREANNA BAKER RN-RONI REGISTERED NURSE 10/15/2023 14:03 /yunior/ EUGENIE SALVADOR LPN Licensed Practical Nurse 10/15/2023 ADDENDUM STATUS: COMPLETED Vet is following up re the levothyroxine. Advised note will be sent. Vet is airing out his frustration about [facility] not [facility]. Provided a listening ear. /yunior/ Corina CARLOS,RN [facility] 2 [facility] RN Signed: 10/15/2023 16:34 Receipt Acknowledged By: 10/16/2023 11:01 /yunior/ BREANNA BAKER RN-RONI REGISTERED NURSE 10/16/2023 09:35 /yunior/ EUGENIE SALVADOR LPN Licensed Practical Nurse 10/16/2023 ADDENDUM STATUS: COMPLETED Spoke with [place] this morning since he presented to [facility] front office associate requesting follow up on levothyroxine medication. Author advised will discuss with PCP and advise. requesting to machine operator hop picker from pharmacy today. In clinic provider assisted with placing order for [employer] [place] to machine operator hop picker at pharmacy window today. Author will place CC endocrine consult and hold for provider review. /BREANNA Gillespie RN-RONI REGISTERED NURSE Signed: 10/16/2023 11:19 EUGENIE SALVADOR [facility] [facility] Oct 15, 2023 01:47 PM ADMINISTRATIVE NOTE: LOCAL TITLE: CCC: SCHEDULING ADMINISTRATION STANDARD TITLE: ADMINISTRATIVE NOTE DATE OF NOTE: OCT 15, 2023@13:47:11 ENTRY DATE: OCT 15, 2023@13:47:11 AUTHOR: ARTHUR HUNTER EXP COSIGNER: URGENCY: STATUS: COMPLETED CCC: SCHEDULING ADMINISTRATION Has ADDENDA Patient Demographics Patient Name: ABHILASH GARAY Patient Primary Phone: [phone] Patient Primary Address: [address] [place] [address] Patient : 1955 Patient Age: 68 Caller/Recipient Relation to Patient: Self Administrative Administrative Note Reason: Other Administrative Note Comments: Pt. had bloodwork performed via outside CC and was advised to reduce his Levothyroxine to 125MG, 1 tab PO daily. Pt. advises there was a fax sent a week or two ago of this documentation. Pt. requesting this be filled. Please call pt. to discuss and advise. P: [phone] /yunior/ ARTHUR CHÁVEZ [facility] AMSA Signed: 10/15/2023 13:47 Receipt Acknowledged By: 10/15/2023 19:58 /yunior/ BREANNA BAKER RN-BC REGISTERED NURSE 10/15/2023 14:03 /es/ EUGENIE SALVADOR LPN Licensed Practical Nurse 10/15/2023 ADDENDUM STATUS: COMPLETED FORWARDING TO PROVIDER FOR ADVISE. RX DOCUMENTS IN RIGHT FAX FOLDER. /yunior/ EUGENIE SALVADOR LPN Licensed Practical Nurse Signed: 10/15/2023 14:04 Receipt Acknowledged By: * AWAITING SIGNATURE * IZAIAHMARCEVESTA Gilberto 10/15/2023 ADDENDUM STATUS: COMPLETED Vet is following up re the levothyroxine. Advised note will be sent. Vet is airing out his frustration about [facility] not [facility]. Provided a listening ear. /es/ Corina CARLOS,RN [facility] 2 [facility] RN Signed: 10/15/2023 16:34 Receipt Acknowledged By: 10/16/2023 11:01 /yunior/ BREANNA BAKER RN-RONI REGISTERED NURSE 10/16/2023 09:35 /yunior/ EUGENIE SALVADOR LPN Licensed Practical Nurse 10/16/2023 ADDENDUM STATUS: COMPLETED Spoke with [employer] [place] this morning since he presented to [facility] front office associate requesting follow up on levothyroxine medication. Author advised will discuss with PCP and advise. requesting to machine operator hop picker from pharmacy today. In clinic provider assisted with placing order for to machine operator hop picker at pharmacy window today. Author will place CC endocrine consult and hold for provider review. /yunior/ BREANNA BAKER RN-BC REGISTERED NURSE Signed: 10/16/2023 11:19 ARTHUR HUNTER [place] [facility]
--- OUTSIDE RECORDS SUMMARY | 2024-06-29 18:57 | XMS_ITS | Encounter Summary ---
Author Name [facility] [facility] [place] [facility] [place] Address [address] [place] [address] Care Team Providers Care Music Assistant Name Role Phone ABDIRAHMAN LAKE Primary [...] BASIC FAMIL Y Jun 24, 2009 [id number] [phone] ABHILASH GARAY PATIENT ANTHEM BCBS [place] F[place] PREFERRED PROVIDER ORGANIZAT ION (PPO) FEP BASIC FAM Jun 24, 2009 112 [id number] [phone] ABHILASH GARAY PATIENT ANTHEM [place]BS [place] F[place] PREFERRED PROVIDER ORGANIZAT ION (PPO) FEP BASIC FAM Jun 24, 2009 112 [id number] [phone] ABHILASH GARAY PATIENT [place]THE[place] PREFERRED PROVIDER ORGANIZAT ION (PPO) FEP BASIC FAM Jun 24, 2009 112 [id number] [phone] ABHILASH GARAY PATIENT [place] PREFERRED PROVIDER ORGANIZAT ION (PPO) FEP BASIC FAM Jun 24, 2009 112 [id number] [phone] ABHILASH GARAY PATIENT [place] PREFERRED PROVIDER ORGANIZAT ION (PPO) BASIC FAMIL Y Jun 24, 2009 112 [id number] [phone] ABHILASH GARAY PATIENT [place] PREFERRED PROVIDER ORGANIZAT ION (PPO) BASIC FAMIL Y Jun 24, 2009 [id number] ABHILASH GARAY PATIENT [place] PREFERRED PROVIDER ORGANIZAT ION (PPO) BASIC FAMIL Y Jun 24, 2009 [id number] ABHILASH GARAY PATIENT [place] F[place] DENTAL DENTAL INSURANCE BASIC Jul 12, 2009 DENTAL [id number] ABHILASH GARAY PATIENT [place] FEP PREFERRED PROVIDER ORGANIZAT ION (PPO) BASIC FAMIL Y Jun 24, 2009 [id number] [phone] ABHILASH GARAY PATIENT [employer] FEP ([id number]) PRESCRIPT ION FEPRX Jun 24, 2009 [id number] [phone] ABHILASH GARAY PATIENT [place] FEP BCBS PRESCRIPT ION CAREM ARK FEPRX PLAN Nov 21, 2021 [id number] ABHILASH GARAY PATIENT [place] FEPRX PLAN PRESCRIPT ION CAREM ARK FEPRX Nov 21, 2021 [id number] ABHILASH GARAY PATIENT [place]-F EP BCBS PRESCRIPT ION FEP CAREM ARK Nov 21, 2021 [id number] ABHILASH GARAY PATIENT [place]-F EP BCBS PRESCRIPT ION FEP Jun 23, 2010 [id number] RUBI GARAYNETH PATIENT MEDICARE ([place]) MEDICARE () PART A Feb 22, 2020 PART A [id number] ABHILASH GARAY PATIENT MEDICARE ([place]) MEDICARE () PART A Feb 22, 2020 PART A [id number] [phone] ABHILASH GARAY PATIENT MEDICARE (WNR) MEDICARE (M) PART A Feb 22, 2020 PART A [id number] ABHILASH GARAY PATIENT MEDICARE (WNR) MEDICARE (M) PART A Feb 22, 2020 PART A [id number] ABHILASH GARAY PATIENT MEDICARE (WNR) MEDICARE (M) PART A Feb 22, 2020 PART A [id number] [phone] ABHILASH GARAY PATIENT Selected Encounter This section includes the information on record at [place] for the Encounter. Date/Time Encounter Type Encounter Description Reason Provider Source Oct 13, 2023 11:00 AM EXERCISE CLASS HEALTH/WELLBEING SRVS ICD-10-CM Y93.42 Activity, PAT [place] IHE Encounter Template Text not used by [place] Assessments - Encounter Diagnoses This section includes the primary and secondary diagnoses documented for the Encounter. Date/Time Primary/Secondary Diagnosis Diagnosis Name Provider Source Oct 14, 2023 02:01 PM PRIMARY Activity, PEDRO Yoder [facility] [place] [facility] Plan of Treatment: Future Appointments [...] - MEDICINE [place] [facility] Oct 20, 2023 11:00 AM AMBULATORY - [place]ICINE [place] [facility] October 23, 2023 01:00 PM AMBULATORY [place]ICINE [place] [facility] [place] [facility] October 27, 2023 11:00 AM AMBULATORY [place]ICINE [place] [facility] [place] [facility] November 03, 2023 11:00 AM AMBULATORY - MEDICINE [place] [facility] [place] [facility] November 03, 2023 01:00 PM AMBULATORY [facility] [place]ICINE [place] [facility] [place] [place] [facility] November 06, 2023 01:00 PM AMBULATORY - MEDICINE [facility] [place] [facility] November 06, 2023 02:00 PM AMBULATORY - MEDICINE [facility] [place] [place] [facility] November 10, 2023 11:00 AM AMBULATORY - MEDICINE [facility] [place] [place] [facility] November 13, 2023 10:30 AM AMBULATORY - MEDICINE [facility] [place] [facility] November 18, 2023 11:00 AM AMBULATORY - MEDICINE [facility] [place] [facility] November 20, 2023 10:30 AM AMBULATORY - MEDICINE [facility] [facility] November 20, 2023 01:00 PM AMBULATORY - [facility]ICINE [facility] [place] [facility] Nov 27, 2023 02:00 PM [facility] Dec 02, 2023 11:00 AM AMBULATORY [facility]ICINE [facility] [place] [facility] Dec 02, 2023 02:30 PM AMBULATORY - MEDICINE [facility] [place] [facility] Dec 04, 2023 01:00 PM AMBULATORY - MEDICINE [facility] [place] [place] [facility] Dec 08, 2023 11:00 AM AMBULATORY - MEDICINE [facility] [place] [facility] Dec 11, 2023 01:00 PM AMBULATORY - MEDICINE [facility] [place] [facility] Dec 15, 2023 11:00 AM AMBULATORY [facility]ICINE [place] [facility] [place] [facility] Social History: Smoking Status (Most [...] [place]-TOBACCO NEVER USED [place] [facility] [place] [facility] Tobacco Use History This section includes a history of the smoking, or tobacco-related health factors, that were collected on or before the date of the Encounter. The data comes from the [place] facility where the Encounter took place. Date/Time Smoking Status/Tobacco Use Comment Gilberto boston Aug 09, 2021 09:20 AM [place]-TOBACCO NEVER USED [facility] Encounter Notes: All associated encounter notes This section contains the clinical notes associated to the Encounter. Date/Time Encounter Note(s) Provider Source Oct 13, 2023 11:00 AM RECREATIONAL THERA PY NOTE: LOCAL TITLE: YOGA WELLBEING STANDARD TITLE: RECREATIONAL THERAPY NOTE DATE OF NOTE: OCT 13, 2023@11:00 ENTRY DATE: OCT 14, 2023@13:56:47 AUTHOR: MARY KATE MOORE EXP COSIGNER: URGENCY: [...] tree, triangle pose, wide leg forward bend, Norman 2, Extended Side Angle Pose, Intense Side Stretch, Norman 1, plank, cobra, locust, downward facing dog, wisdom pose, contralateral limb raises, head to knee pose, bridge, reclined twist, and knees to chest; Systematic Relaxation; and Gratitude. Modifications were geared toward the 's individual needs and preferences. Candia was one of five participants in Group Yoga. He fully participated, practicing all the postures offered and modifying according to his needs. He practiced excellent self-care and used his breath as a tool to enhance his practice. He will return to class as his schedule allows. /yunior/ MARY KATE MOORE, [id number]-[address] [place] Signed: 10/14/2023 14:06 MARY KATE MOORE [facility]
--- OUTSIDE RECORDS SUMMARY | 2024-06-29 18:57 | XMS_ITS | Encounter Summary ---
Author Name [facility] [place] Address [address] [place] [address] Care Team Providers Care Hammer Runner Name Role Phone ABDIRAHMAN LAKE Primary Care [...] BASIC FAMIL Y Jun 24, 2009 112 [id number] [phone] ABHILASH GARAY PATIENT ANTHEM BCBS [place] F[place] PREFERRED PROVIDER ORGANIZAT ION (PPO) FEP BASIC FAM Jun 24, 2009 112 [id number] [phone] ABHILASH GARAY PATIENT ANTHEM BCBS [place] FEP PREFERRED PROVIDER ORGANIZAT ION (PPO) FEP BASIC FAM Jun 24, 2009 112 [id number] [phone] ABHILASH GARAY PATIENT ANTHEM [place] F[place] PREFERRED PROVIDER ORGANIZAT ION (PPO) FEP BASIC FAM Jun 24, 2009 112 [id number] [phone] ABHILASH GARAY PATIENT [place] FEP PREFERRED PROVIDER ORGANIZAT ION (PPO) FEP BASIC FAM Jun 24, 2009 112 [id number] [phone] ABHILASH GARAY PATIENT BCBS [place] FEP PREFERRED PROVIDER ORGANIZAT ION (PPO) BASIC FAMIL Y Jun 24, 2009 112 [id number] ABHILASH GARAY PATIENT [place] PREFERRED PROVIDER ORGANIZAT ION (PPO) BASIC FAMIL Y Jun 24, 2009 112 [id number] ABHILASH GARAY PATIENT [place] F[place] PREFERRED PROVIDER ORGANIZAT ION (PPO) BASIC FAMIL Y Jun 24, 2009 [id number] ABHILASH GARAY PATIENT [place] DENTAL DENTAL INSURANCE BASIC Jul 12, 2009 DENTAL [id number] [phone] ABHILASH GARAY PATIENT [place] F[place] PREFERRED PROVIDER ORGANIZAT ION (PPO) BASIC FAMIL Y Jun 24, 2009 [id number] ABHILASH GARAY PATIENT [employer] FEP ([id number]) PRESCRIPT ION FEPRX Jun 24, 2009 [id number] [phone] ABHILASH GARAY PATIENT [place] FEP BCBS PRESCRIPT ION CAREM ARK FEPRX PLAN Nov 21, 2021 [id number] ABHILASH GARAY PATIENT [place] FEPRX PLAN PRESCRIPT ION CAREM ARK FEPRX Nov 21, 2021 [id number] ABHILASH GARAY PATIENT [place]-F EP BCBS PRESCRIPT ION FEP CAREM ARK Nov 21, 2021 [id number] ABHILASH GARAY PATIENT [place] EP BCBS PRESCRIPT ION FEP Jun 23, 2010 [id number] ABHILASH GARAY PATIENT MEDICARE (WN) MEDICARE () PART A Feb 22, 2020 PART A [id number] [phone] ABHILASH GARAY PATIENT MEDICARE ([facility]) MEDICARE () PART A Feb 22, 2020 PART A [id number] [phone] ABHILASH GARAY PATIENT MEDICARE (WNR) MEDICARE (M) PART A Feb 22, 2020 PART A [id number] [phone] ABHILASH GARAY PATIENT MEDICARE (WNR) MEDICARE (M) PART A Feb 22, 2020 PART A [id number] ABHILASH GARAY PATIENT MEDICARE (WNR) MEDICARE (M) PART A Feb 22, 2020 PART A [id number] [phone] ABHILASH GARAY PATIENT Selected Encounter This section includes the information on [place] at [place] for the Encounter. Date/Time Encounter Type Encounter Description Reason Pro vider Source Sep 05, 2023 12:00 AM Outpatient Encounter COMMUNITY CARE [...] 08, 2023 11:00 AM [place] [facility] Sep 11, 2023 01:00 PM [place] [facility] Sep 16, 2023 11:00 AM [place] [facility] Sep 29, 2023 11:00 AM [place] [facility] Oct 02, 2023 01:00 PM [place]ORY [place] [facility] Oct 06, 2023 11:00 AM AM[place]ORY [place] [facility] Oct 06, 2023 12:40 PM AM[place]ORY [place] [facility] Oct 09, 2023 01:00 PM AM[place]ULATORY [place] [facility] Oct 13, 2023 11:00 AM [place] [facility] Oct 16, 2023 01:00 PM AM[facility]ULATORY [facility] [place]ICINE [place] [facility] [place] [facility] Oct 20, 2023 11:00 AM AMBULATORY [facility] [place]ICINE [place] [facility] [place] [facility] October 23, 2023 01:00 PM AMBULATORY [facility] [place]ICINE [place] [facility] [place] [facility] October 27, 2023 11:00 AM AM[facility]ULATORY [facility] [place]ICINE [place] [facility] [place] [facility] November 03, 2023 11:00 AM AMBULATORY [facility]ICINE [place] [facility] [place] [facility] November 03, 2023 01:00 PM AMBULATORY [facility] [place]ICINE [place] [facility] [place] [facility] November 06, 2023 01:00 PM AMBULATORY [facility] [place]ICINE [place] [facility] [place] [facility] November 06, 2023 02:00 PM [place] [facility] November 10, 2023 11:00 AM [facility]UL[place] [place] [facility] November 13, 2023 10:30 AM [place] [facility] November 18, 2023 11:00 AM [place] [facility] Social [...] 08, 2023 09:12 AM [facility] Tobacco Use History This section includes a history of the smoking, or tobacco-related health factors, that were collected on or before the date of the Encounter. The data comes from the [place] facility where the Encounter took place. Date/Time Smoking Status/Tobacco Use Comment F darvin Aug 09, 2021 09:20 AM VA-TOBACCO [facility] Encounter Notes: All associated encounter notes This section contains the clinical notes associated to the Encounter. Date/Time Encounter Note(s) Provider Source Sep 05, 2023 12:00 AM NONVA CONSULT: LOCAL TITLE: COMMUNITY CARE-CONSULT RESULT NOTE STANDARD TITLE: NONVA CONSULT DATE OF NOTE: SEP 05, 2023 ENTRY DATE: OCT 15, 2023@14:18 AUTHOR: ADITHYA ZAMORA COSIGNER: URGENCY: STATUS: COMPLETED VistA Imaging - Scanned Document SCANNED DOCUMENT SIGNATURE NOT REQUIRED Electronically Filed: 10/15/2023 by: ADITHYA ZAMORA CNC MACHINE SETTER [facility]A [facility]
--- OUTSIDE RECORDS SUMMARY | 2024-06-29 18:57 | XMS_ITS | Encounter Summary ---
Author Name [facility] [place] [facility] [place] [facility] [place] Address [address] [place] [address] Care Team Providers Care Naturopathic Oncology Provider Name Role Phone ABDIRAHMAN LAKE Primary Care [...] BASIC FAMIL Y Jun 24, 2009 [id number] [phone] ABHILASH GARAY PATIENT ANTHEM BCBS [place] F[place] PREFERRED PROVIDER ORGANIZAT ION (PPO) FEP BASIC FAM Jun 24, 2009 112 [id number] [phone] ABHILASH GARAY PATIENT ANTHEM BCBS [place] F[place] PREFERRED PROVIDER ORGANIZAT ION (PPO) FEP BASIC FAM Jun 24, 2009 112 [id number] [phone] ABHILASH GARAY PATIENT [place] PREFERRED PROVIDER ORGANIZAT ION (PPO) FEP BASIC FAM Jun 24, 2009 112 [id number] [phone] ABHILASH GARAY PATIENT [place] F[place] PREFERRED PROVIDER ORGANIZAT ION (PPO) FEP BASIC FAM Jun 24, 2009 112 [id number] [phone] ABHILASH GARAY PATIENT [place]BS [place] FEP PREFERRED PROVIDER ORGANIZAT ION (PPO) BASIC FAMIL Y Jun 24, 2009 [id number] ABHILASH GARAY PATIENT [place] PREFERRED PROVIDER ORGANIZAT ION (PPO) BASIC FAMIL Y Jun 24, 2009 [id number] ABHILASH GARAY PATIENT [place] PREFERRED PROVIDER ORGANIZAT ION (PPO) BASIC FAMIL Y Jun 24, 2009 [id number] ABHILASH GARAY PATIENT [place] DENTAL DENTAL INSURANCE BASIC Jul 12, 2009 DENTAL [id number] ABHILASH GARAY PATIENT [place] F[place] PREFERRED PROVIDER ORGANIZAT ION (PPO) BASIC FAMIL Y Jun 24, 2009 [id number] ABHILASH GARAY PATIENT [employer] FEP ([id number]) PRESCRIPT ION FEPRX Jun 24, 2009 [id number] [phone] ABHILASH GARAY PATIENT [place] FEP BCBS PRESCRIPT ION CAREM ARK FEPRX PLAN Nov 21, 2021 [id number] ABHILASH GARAY PATIENT [place] FEPRX PLAN PRESCRIPT ION CAREM ARK FEPRX Nov 21, 2021 [id number] ABHILASH GARAY PATIENT [place]-F EP BCBS PRESCRIPT ION FEP CAREM ARK Nov 21, 2021 [id number] ABHILASH GARAY PATIENT [place]-F EP BCBS PRESCRIPT ION FEP Jun 23, 2010 [id number] ABHILASH GARAY PATIENT MEDICARE (WN) MEDICARE () PART A Feb 22, 2020 PART A [id number] ABHILASH GARAY PATIENT MEDICARE ([facility]) MEDICARE () PART A Feb 22, 2020 PART A [id number] ABHILASH GARAY PATIENT MEDICARE (WNR) MEDICARE (M) PART A Feb 22, 2020 PART A [id number] ABHILASH GARAY PATIENT MEDICARE (WNR) MEDICARE (M) PART A Feb 22, 2020 PART A [id number] ABHILASH GARAY PATIENT MEDICARE (WNR) MEDICARE (M) PART A Feb 22, 2020 PART A [id number] ABHILASH GARAY PATIENT Selected Encounter This section includes the information on record at [place] for the Encounter. Date/Time Encounter Type Encounter Description Reason Pro vider Source Oct 03, 2023 12:00 AM Outpatient Encounter EVENT (HISTORICAL) IHE Encounter Template Text not used by [place] Plan of Treatment: Future Appointments (+ 6 months) and Future Tests (+/- 45 days) The Plan of Treatment section includes future care activities for the patient from all [place] treatmentfacilities. This section includes future appointments and [...] 06, 2023 11:00 AM AMBULATORY [place]ICINE [place] [facility] Oct 06, 2023 12:40 PM AMBULATORY - MEDICINE [place] [facility] Oct 09, 2023 01:00 PM AMBULATORY - MEDICINE [place] [facility] Oct 13, 2023 11:00 AM AMBULATORY - MEDICINE [place] [facility] Oct 16, 2023 01:00 PM AMBULATORY - MEDICINE [place] [facility] Oct 20, 2023 11:00 AM AMBULATORY - MEDICINE [place] [facility] October 23, 2023 01:00 PM AMBULATORY - MEDICINE [place] [facility] October 27, 2023 11:00 AM AMBULATORY - MEDICINE [place] [facility] November 03, 2023 11:00 AM AMBULATORY [place] MEDICINE [place] [facility] November 03, 2023 01:00 PM AMBULATORY - MEDICINE [place] [facility] [place] [facility] November 06, 2023 01:00 PM AMBULATORY - MEDICINE [place] [facility] [place] [place] [facility] November 06, 2023 02:00 PM AMBULATORY - MEDICINE [place] [facility] [place] [facility] November 10, 2023 11:00 AM AMBULATORY - [place]ICINE [place] [facility] [place] [facility] November 13, 2023 10:30 AM AMBULATORY - MEDICINE [place] [facility] [place] [facility] November 18, 2023 11:00 AM AMBULATORY - MEDICINE [place] [facility] November 20, 2023 10:30 AM AMBULATORY - MEDICINE [place] [facility] [place] [facility] November 20, 2023 01:00 PM AMBULATORY - [place]ICINE [place] [facility] [place] [facility] Nov 27, 2023 02:00 PM AMBULATORY - [place]ICINE [place] Dec 02, 2023 11:00 AM AMBULATORY - [place]ICINE [place] [facility] Dec 02, 2023 02:30 PM AMBULATORY - MEDICINE [place] [facility] [place] [facility] Social History: Smoking Status (Most current) [...] 08, 2023 09:12 AM [facility]-TOBACCO [facility] [place] [facility] Tobacco Use History This section includes a history of the smoking, or tobacco-related health factors, that were collected on or before the date of the Encounter. The data comes from the [place] facility where the Encounter took place. Date/Time Smoking Status/Tobacco Use Comment F acjaved Aug 09, 2021 09:20 AM [facility] Encounter Notes: All associated encounter notes This section contains the clinical notes associated to the Encounter. Date/Time Encounter Note(s) Provider Source Oct 03, 2023 12:00 AM NONVA NOTE: LOCAL TITLE: NON-VA OUTPATIENT NOTES STANDARD TITLE: NONVA NOTE DATE OF NOTE: OCT 03, 2023 ENTRY DATE: OCT 15, 2023@15:19:16 AUTHOR: ADITHYA ZAMORA COSIGNER: URGENCY: STATUS: COMPLETED VistA Imaging - Scanned Document SCANNED DOCUMENT SIGNATURE NOT REQUIRED Electronically Filed: 10/15/2023 by: ADITHYA ZAMORA HOME INSURANCE AGENT ADITHYA ZAMORA [facility]
--- OUTSIDE RECORDS SUMMARY | 2024-06-29 18:57 | XMS_ITS | Encounter Summary ---
Author Name [facility] [place] Address [address] [place] [address] Care Team Providers Care Survey Methodologist Name Role Phone ABDIRAHMAN LAKE Primary Care [...] BASIC FAMIL Y Jun 24, 2009 112 [id number] [phone] ABHILASH GARAY PATIENT ANTHEM BCBS [place] FEP PREFERRED PROVIDER ORGANIZAT ION (PPO) FEP BASIC FAM Jun 24, 2009 112 [id number] [phone] ABHILASH GARAY PATIENT ANTHEM [place]BS [place] FEP PREFERRED PROVIDER ORGANIZAT ION (PPO) FEP BASIC FAM Jun 24, 2009 112 [id number] [phone] ABHILASH GARAY PATIENT ANTHE[place] PREFERRED PROVIDER ORGANIZAT ION (PPO) FEP BASIC FAM Jun 24, 2009 112 [id number] [phone] ABHILASH GARAY PATIENT [place] PREFERRED PROVIDER ORGANIZAT ION (PPO) FEP BASIC FAM Jun 24, 2009 112 [id number] [phone] ABHILASH GARAY PATIENT [place] F[place] PREFERRED PROVIDER ORGANIZAT ION (PPO) BASIC FAMIL Y Jun 24, 2009 [id number] ABHILASH GARAY PATIENT [place] PREFERRED PROVIDER ORGANIZAT ION (PPO) BASIC FAMIL Y Jun 24, 2009 [id number] ABHILASH GARAY PATIENT [place] PREFERRED PROVIDER ORGANIZAT ION (PPO) BASIC FAMIL Y Jun 24, 2009 [id number] ABHILASH GARAY PATIENT [place] DENTAL DENTAL INSURANCE BASIC Jul 12, 2009 DENTAL [id number] ABHILASH GARAY PATIENT [place] F[place] PREFERRED PROVIDER ORGANIZAT ION (PPO) BASIC FAMIL Y Jun 24, 2009 [id number] [phone] ABHILASH GARAY PATIENT [employer] FEP ([id number]) PRESCRIPT ION FEPRX Jun 24, 2009 [id number] [phone] ABHILASH GARAY PATIENT [place] FEP BCBS PRESCRIPT ION CAREM ARK FEPRX PLAN Nov 21, 2021 [id number] ABHILASH GARAY PATIENT [employer] FEPRX PLAN PRESCRIPT ION CAREM ARK FEPRX Nov 21, 2021 [id number] ABHILASH GARAY PATIENT [employer]-F EP BCBS PRESCRIPT ION FEP CAREM ARK Nov 21, 2021 [id number] ABHILASH GARAY PATIENT [place]-F EP BCBS PRESCRIPT ION FEP Jun 23, 2010 [id number] RUBI GARAYNETH PATIENT MEDICARE (WN) MEDICARE () PART A Feb 22, 2020 PART A [id number] [phone] ABHILASH GARAY PATIENT MEDICARE (WN) MEDICARE () PART A Feb 22, 2020 PART A [id number] ABHILASH GARAY PATIENT MEDICARE (WNR) MEDICARE (M) PART A Feb 22, 2020 PART A [id number] NV71 [phone] ABHILASH GARAY PATIENT MEDICARE (WNR) MEDICARE (M) PART A Feb 22, 2020 PART A [id number] ABHILASH GARAY PATIENT MEDICARE (WNR) MEDICARE (M) PART A Feb 22, 2020 PART A [id number] ABHILASH GARAY PATIENT Selected Encounter This section includes the information on record at [place] for the Encounter. Date/Time Encounter Type Encounter Description Reason Provider Source Oct 06, 2023 11:00 AM EXERCISE CLASS HEALTH/WELLBEING SRVS ICD-10-CM Y93.42 Activity, PAT Yoder [place] IHE Encounter Template Text not used by [place] Assessments - Encounter Diagnoses This section includes the primary and secondary diagnoses documented for the Encounter. Date/Time Primary/Secondary Diagnosis Diagnosis Name Provider Source Oct 06, 2023 03:51 PM PRIMARY Activity, PEDRO Yoder [facility] [place] [facility] Plan of Treatment: Future Appointments [...] 09, 2023 01:00 PM AMBULATORY - MEDICINE [place] [facility] Oct 13, 2023 11:00 AM AMBULATORY - MEDICINE [place] [facility] Oct 16, 2023 01:00 PM AMBULATORY - MEDICINE [place] [facility] [place] [facility] Oct 20, 2023 11:00 AM AMBULATORY - MEDICINE [place] [place] [facility] October 23, 2023 01:00 PM AMBULATORY - MEDICINE [place] [facility] October 27, 2023 11:00 AM AMBULATORY - MEDICINE [place] [facility] [place] [facility] November 03, 2023 11:00 AM AMBULATORY - MEDICINE [place] [facility] [place] [facility] November 03, 2023 01:00 PM AMBULATORY - MEDICINE [place] [facility] [place] [facility] November 06, 2023 01:00 PM AMBULATORY - MEDICINE [place] [facility] [place] [facility] November 06, 2023 02:00 PM AMBULATORY - MEDICINE [place] [facility] [place] [facility] November 10, 2023 11:00 AM AMBULATORY - MEDICINE [place] [facility] [place] [facility] November 13, 2023 10:30 AM AMBULATORY - MEDICINE [place] [facility] [place] [facility] November 18, 2023 11:00 AM AMBULATORY - MEDICINE [place] [facility] [place] [facility] November 20, 2023 10:30 AM AMBULATORY - MEDICINE [place] [facility] [place] [facility] November 20, 2023 01:00 PM AMBULATORY - MEDICINE [place] [facility] [place] [facility] Nov 27, 2023 02:00 PM AMBULATORY - [place]ICINE [place] Dec 02, 2023 11:00 AM AMBULATORY - MEDICINE [place] [facility] [place] [facility] Dec 02, 2023 02:30 PM AMBULATORY - MEDICINE [place] [facility] [place] [facility] Dec 04, 2023 01:00 PM AMBULATORY - MEDICINE [place] [facility] [place] [facility] Dec 08, 2023 11:00 AM AMBULATORY - MEDICINE [place] [facility] [place] [place] [facility] Social History: Smoking Status (Most [...] VA-TOBACCO NEVER USED [place] [facility] [place] [facility] Tobacco Use History This section includes a history of the smoking, or tobacco-related health factors, that were collected on or before the date of the Encounter. The data comes from the [place] facility where the Encounter took place. Date/Time Smoking Status/Tobacco Use Comment F darvin Aug 09, 2021 09:20 AM [place]-TOBACCO NEVER USED [facility] Encounter Notes: All associated encounter notes This section contains the clinical notes associated to the Encounter. Date/Time Encounter Note(s) Provider Source Oct 06, 2023 11:00 AM RECREATIONAL THERA PY NOTE: LOCAL TITLE: YOGA WELLBEING STANDARD TITLE: RECREATIONAL THERAPY NOTE DATE OF NOTE: OCT 06, 2023@11:00 ENTRY DATE: OCT 06, 2023@15:50:52 AUTHOR: MARY KATE MOORE EXP COSIGNER: URGENCY: STATUS: COMPLETED Group Yoga Class Total time: 60 minutes Class Focus: Breath awareness, mindful movement, relaxation, and gratitude to balance the nervous system and enhance overall well-being. The Practice: Alternate Nostril Pranayama for balancing the nervous system; postures that included, but were not limited to, moving warm-up, half sun salutation, tree, triangle pose, wide leg forward bend, Jefferson 2, Extended Side Angle Pose, Intense Side Stretch, Jefferson 1, forearm plank, cobra, locust, downward facing dog, wisdom pose, contralateral limb raises, head to knee pose, bridge, reclined twist, and knees to chest; Systematic Relaxation; and Gratitude. Modifications were geared toward the 's individual needs and preferences. Troy was one of seven participants in Group Yoga. He fully participated, practicing all the postures offered and modifying according to his needs. He practiced excellent self- care and used his breath as a tool to enhance his practice. He will return to class as his schedule allows. /yunior/ ROXANNA [id number] Lamps Tester And Inspector Signed: 10/06/2023 15:57 MARY KATE MOORE [facility]
--- OUTSIDE RECORDS SUMMARY | 2024-06-29 18:57 | XMS_ITS ---
Author Name [facility] [place] Address [address] [place] [address] Care Team Providers Care Sales Donor Recruitment Representative Name Role Phone ABDIRAHMAN LAKE Primary [...] BASIC FAMIL Y Jun 24, 2009 112 [id number] [phone] ABHILASH GARAY PATIENT ANTHEM BCBS [place] F[place] PREFERRED PROVIDER ORGANIZAT ION (PPO) FEP BASIC FAM Jun 24, 2009 112 [id number] [phone] ABHILASH GARAY PATIENT ANTHEM BCBS [place] F[place] PREFERRED PROVIDER ORGANIZAT ION (PPO) FEP BASIC FAM Jun 24, 2009 112 [id number] [phone] ABHILASH GARAY PATIENT [place]M [place] PREFERRED PROVIDER ORGANIZAT ION (PPO) FEP BASIC FAM Jun 24, 2009 112 [id number] [phone] ABHILASH GARAY PATIENT [place]BS [place] FEP PREFERRED PROVIDER ORGANIZAT ION (PPO) FEP BASIC FAM Jun 24, 2009 112 [id number] [phone] ABHILASH GARAY PATIENT BCBS [place] FEP PREFERRED PROVIDER ORGANIZAT ION (PPO) BASIC FAMIL Y Jun 24, 2009 112 [id number] ABHILASH GARAY PATIENT [place] PREFERRED PROVIDER ORGANIZAT ION (PPO) BASIC FAMIL Y Jun 24, 2009 112 [id number] [phone] ABHILASH GARAY PATIENT [place] FEP PREFERRED PROVIDER ORGANIZAT ION (PPO) BASIC FAMIL Y Jun 24, 2009 112 [id number] ABHILASH GARAY PATIENT [place] F[place] DENTAL DENTAL INSURANCE BASIC Jul 12, 2009 DENTAL [id number] [phone] ABHILASH GARAY PATIENT [place] FEP PREFERRED PROVIDER ORGANIZAT ION (PPO) BASIC FAMIL Y Jun 24, 2009 112 [id number] ABHILASH GARAY PATIENT [place] FEP ([id number]) PRESCRIPT ION FEPRX Jun 24, 2009 [id number] [phone] ABHILASH GARAY PATIENT [place] FEP BCBS PRESCRIPT ION CAREM ARK FEPRX PLAN Nov 21, 2021 [id number] ABHILASH GARAY PATIENT [place] FEPRX PLAN PRESCRIPT ION CAREM ARK FEPRX Nov 21, 2021 [id number] ABHILASH GARAY PATIENT [place]-F EP BCBS PRESCRIPT ION FEP CAREM ARK Nov 21, 2021 [id number] ABHILASH GARAY PATIENT [place]-F EP BCBS PRESCRIPT ION FEP Jun 23, 2010 [id number] ABHILASH GARAY PATIENT MEDICARE (WN) MEDICARE () PART A Feb 22, 2020 PART A [id number] [phone] ABHILASH GARAY PATIENT MEDICARE ([facility]) MEDICARE () PART A Feb 22, 2020 PART A [id number] ABHILASH GARAY PATIENT MEDICARE (WNR) MEDICARE (M) PART A Feb 22, 2020 PART A [id number] ABHILASH GARAY PATIENT MEDICARE (WNR) MEDICARE (M) PART A Feb 22, 2020 PART A [id number] ABHILASH GARAY PATIENT MEDICARE (WNR) MEDICARE (M) PART A Feb 22, 2020 PART A [id number] ABHILASH GARAY PATIENT Selected Encounter This section includes the [place] for the Encounter. Date/Time Encounter Type Encounter Description Reason Pro vider Source Oct 17, 2023 02:15 PM Outpatient Encounter PRIMARY CARE/MEDICINE IHE Encounter Template Text not used by [place] Plan of Treatment: Future Appointments (+ 6 [...] Appointment Type Appointme nt Facility Name Oct 20, 2023 11:00 AM AMBULATORY [place]ICINE [place] [facility] October 23, 2023 01:00 PM AMBULATORY - MEDICINE [place] [facility] October 27, 2023 11:00 AM AMBULATORY - MEDICINE [place] [facility] November 03, 2023 11:00 AM AMBULATORY - MEDICINE [place] [facility] November 03, 2023 01:00 PM AMBULATORY - MEDICINE [place] [facility] November 06, 2023 01:00 PM AMBULATORY - MEDICINE [place] [facility] November 06, 2023 02:00 PM AMBULATORY - MEDICINE [facility] [place] [facility] November 10, 2023 11:00 AM AMBULATORY - MEDICINE [place] [facility] November 13, 2023 10:30 AM AMBULATORY - MEDICINE [place] [facility] November 18, 2023 11:00 AM AMBULATORY [place]ICINE [place] [facility] November 20, 2023 10:30 AM AMBULATORY [place] MEDICINE [place] [facility] November 20, 2023 01:00 PM AMBULATORY - MEDICINE [place] [facility] Nov 27, 2023 02:00 PM AMBULATORY [place] MEDIC[place] Dec 02, 2023 11:00 AM AMBULATORY [place] MEDICINE [place] [facility] Dec 02, 2023 02:30 PM AMBULATORY - MEDICINE [place] [facility] Dec 04, 2023 01:00 PM AMBULATORY - MEDICINE [place] [facility] Dec 08, 2023 11:00 AM AMBULATORY - MEDICINE [place] [facility] Dec 11, 2023 01:00 PM AMBULATORY - MEDICINE [place] [facility] Dec 15, 2023 11:00 AM AMBULATORY - MEDICINE [place] [facility] Dec 15, 2023 03:00 PM AMBULATORY [place]ICINE [place] [facility] Social History: Smoking Status (Most current) and [...] 2023 09:12 AM VA-TOBACCO [facility] Tobacco Use History This section includes a history of the smoking, or tobacco-related health factors, that were collected on or before the date of the Encounter. The data comes from the [place] facility where the Encounter took place. Date/Time Smoking Status/Tobacco Use Comment F acjaved Aug 09, 2021 09:20 AM [facility]CO [facility] Encounter Notes: All associated encounter notes This section contains the clinical notes associated to the Encounter. Date/Time Encounter Note(s) Provider Source Oct 17, 2023 02:15 PM ADMINISTRATIVE NOT E: LOCAL TITLE: ADMINISTRATIVE NOTE STANDARD TITLE: ADMINISTRATIVE NOTE DATE OF NOTE: OCT 17, 2023@14:15 ENTRY DATE: OCT 17, 2023@14:15:16 AUTHOR: LINDA LOPEZ COSIGNER: URGENCY: STATUS: COMPLETED THIS MUSIC WRITER HAD CALLED TO RESCHEDULE F2F APPT. WITH CWM/SO/PACT EIGHT PROVIDER. NO ANSWER, LEFT MESSAGE FOR TO CALL AND RESCHEDULE. /es/ LUNA LOPEZ ADVANCED PROGRAM EVALUATION CONSULTANT Signed: 10/17/2023 14:16 LUNA LOPEZ CALLAWAY
--- OUTSIDE RECORDS SUMMARY | 2024-06-29 18:57 | XMS_ITS | Encounter Summary ---
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 Name Role Phone ABDIRAHMAN LAKE Primary [...] BASIC FAMIL Y Jun 24, 2009 [id number] [phone] ABHILASH GARAY PATIENT ANTHEM BCBS [place] F[place] PREFERRED PROVIDER ORGANIZAT ION (PPO) FEP BASIC FAM Jun 24, 2009 112 [id number] [phone] ABHILASH GARAY PATIENT ANTHEM BCBS [place] F[place] PREFERRED PROVIDER ORGANIZAT ION (PPO) FEP BASIC FAM Jun 24, 2009 112 [id number] [phone] ABHILASH GARAY PATIENT [place] PREFERRED PROVIDER ORGANIZAT ION (PPO) FEP BASIC FAM Jun 24, 2009 112 [id number] [phone] ABHILASH GARAY PATIENT [place] F[place] PREFERRED PROVIDER ORGANIZAT ION (PPO) FEP BASIC FAM Jun 24, 2009 112 [id number] [phone] ABHILASH GARAY PATIENT [place]BS [place] FEP PREFERRED PROVIDER ORGANIZAT ION (PPO) BASIC FAMIL Y Jun 24, 2009 112 [id number] ABHILASH GARAY PATIENT [place] PREFERRED PROVIDER ORGANIZAT ION (PPO) BASIC FAMIL Y Jun 24, 2009 112 [id number] [phone] ABHILASH GARAY PATIENT [place] FEP PREFERRED PROVIDER ORGANIZAT ION (PPO) BASIC FAMIL Y Jun 24, 2009 [id number] ABHILASH GARAY PATIENT [place] DENTAL DENTAL INSURANCE BASIC Jul 12, 2009 DENTAL [id number] ABHILASH GARAY PATIENT [place] F[place] PREFERRED PROVIDER ORGANIZAT ION (PPO) BASIC FAMIL Y Jun 24, 2009 [id number] ABHILASH GARAY PATIENT [employer] FEP ([id number]) PRESCRIPT ION FEPRX Jun 24, 2009 [id number] [phone] ABHILASH GARAY PATIENT [place] FEP BCBS PRESCRIPT ION CAREM ARK FEPRX PLAN Nov 21, 2021 [id number] ABHILASH GARAY PATIENT [place] FEPRX PLAN PRESCRIPT ION CAREM ARK FEPRX Nov 21, 2021 [id number] ABHILASH GARAY PATIENT [place]-F EP BCBS PRESCRIPT ION FEP CAREM ARK Nov 21, 2021 [id number] ABHILASH GARAY PATIENT [place]-F EP BCBS PRESCRIPT ION FEP Jun 23, 2010 [id number] RUBI GARAYNETH PATIENT MEDICARE (WN) MEDICARE () PART A Feb 22, 2020 PART A [id number] ABHILASH GARAY PATIENT MEDICARE (WN) MEDICARE () PART A Feb 22, 2020 PART A [id number] [phone] ABHILASH GARAY PATIENT MEDICARE (WNR) MEDICARE (M) PART A Feb 22, 2020 PART A [id number] ABHILASH GARAY PATIENT MEDICARE (WNR) MEDICARE (M) PART A Feb 22, 2020 PART A [id number] [id number] [phone] ABHILASH GARAY PATIENT MEDICARE (WNR) MEDICARE (M) PART A Feb 22, 2020 PART A [id number] [id number] [phone] ABHILASH GARAY PATIENT Selected Encounter This section includes the information on record at [place] for the Encounter. Date/Time Encounter Type Encounter Description Reason Provider Source Oct 16, 2023 01:00 PM EXERCISE CLASS HEALTH/WELLBEING SRVS ICD-10-CM Y93.42 Activity, PAT Yoder [place] IHFran Encounter Template Text not used by [place] Assessments - Encounter Diagnoses This section includes the primary and secondary diagnoses documented for the Encounter. Date/Time Primary/Secondary Diagnosis Diagnosis Name Provider Source Oct 17, 2023 07:53 AM PRIMARY Activity, PEDRO Yoder [facility] [place] [facility] Plan of Treatment: Future Appointments (+ [...] 20, 2023 11:00 AM AM[place]ORY [place] [facility] October 23, 2023 01:00 PM AM[place]UL[place]ORY [place] [facility] October 27, 2023 11:00 AM AM[place]ORY [place] [facility] November 03, 2023 11:00 AM AM[place]ORY [place] [facility] November 03, 2023 01:00 PM AM[place]UL[place]ORY [place]INE [place] [facility] November 06, 2023 01:00 PM AMBULATORY [place]ICINE [place] [facility] November 06, 2023 02:00 PM AMBULATORY - MEDICINE [place] [facility] November 10, 2023 11:00 AM AMBULATORY - MEDICINE [place] [facility] November 13, 2023 10:30 AM AMBULATORY - MEDICINE [place] [facility] November 18, 2023 11:00 AM AMBULATORY - MEDICINE [place] [facility] November 20, 2023 10:30 AM AMBULATORY - MEDICINE [place] [facility] November 20, 2023 01:00 PM AMBULATORY - MEDICINE [place] [facility] Nov 27, 2023 02:00 PM [facility] Dec 02, 2023 11:00 AM AM[facility]ULATORY [place]ICINE [place] [facility] Dec 02, 2023 02:30 PM AMBULATORY - MEDICINE [place] [facility] Dec 04, 2023 01:00 PM AMBULATORY - MEDICINE [place] [facility] Dec 08, 2023 11:00 AM AMBULATORY [place] MEDICINE [place] [facility] Dec 11, 2023 01:00 PM AMBULATORY - MEDICINE [place] [facility] Dec 15, 2023 11:00 AM AMBULATORY - MEDICINE [place] [facility] Dec 15, 2023 03:00 PM AMBULATORY - MEDICINE [place] [facility] Social History: Smoking Status (Most current) [...] VA-TOBACCO NEVER USED [place] [place] [facility] Tobacco Use History This section includes a history of the smoking, or tobacco-related health factors, that were collected on or before the date of the Encounter. The data comes from the [place] facility where the Encounter took place. Date/Time Smoking Status/Tobacco Use Comment Gilberto boston Aug 09, 2021 09:20 AM [place]-TOBACCO NEVER USED [facility] Encounter Notes: All associated encounter notes This section contains the clinical notes associated to the Encounter. Date/Time Encounter Note(s) Provider Source Oct 16, 2023 01:00 PM RECREATIONAL THERA PY NOTE: LOCAL TITLE: YOGA WELLBEING STANDARD TITLE: RECREATIONAL THERAPY NOTE DATE OF NOTE: OCT 16, 2023@13:00 ENTRY DATE: OCT 17, 2023@07:52:22 AUTHOR: MARY KATE MOORE EXP COSIGNER: URGENCY: [...] tree, triangle pose, wide leg forward bend, Silvis 2, Extended Side Angle Pose, Intense Side Stretch, Silvis 1, plank, cobra, locust, downward facing dog, wisdom pose, contralateral limb raises, head to knee pose, bridge, reclined twist, and knees to chest; Systematic Relaxation; and Gratitude. Modifications were geared toward the 's individual needs and preferences. Belfair was one of four participants in Group Yoga. He fully participated, practicing all the postures offered and modifying according to his needs. He practiced excellent self- care and used his breath as a tool to enhance his practice. He will return to class as his schedule allows. /yunior/ ROXANNA [id number] Testing Engineer Signed: 10/17/2023 07:57 MARY KATE MOORE [facility]
--- OUTSIDE RECORDS SUMMARY | 2024-06-29 18:57 | XMS_ITS | Encounter Summary ---
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 Brine Plant Operator Name Role Phone ABDIRAHMAN LAKE [...] BASIC FAMIL Y Jun 24, 2009 [id number] [phone] ABHILASH GARAY PATIENT ANTHEM BCBS [place] FEP PREFERRED PROVIDER ORGANIZAT ION (PPO) FEP BASIC FAM Jun 24, 2009 112 [id number] [phone] ABHILASH GARAY PATIENT ANTHEM BCBS [place] FEP PREFERRED PROVIDER ORGANIZAT ION (PPO) FEP BASIC FAM Jun 24, 2009 [id number] [phone] ABHILASH GARAY PATIENT [place] PREFERRED PROVIDER ORGANIZAT ION (PPO) FEP BASIC FAM Jun 24, 2009 112 [id number] [phone] ABHILASH GARAY PATIENT [place] PREFERRED PROVIDER ORGANIZAT ION (PPO) FEP BASIC FAM Jun 24, 2009 112 [id number] [phone] ABHILASH GARAY PATIENT [place]BS [place] PREFERRED PROVIDER ORGANIZAT ION (PPO) BASIC FAMIL Y Jun 24, 2009 [id number] ABHILASH GARAY PATIENT [place] PREFERRED PROVIDER ORGANIZAT ION (PPO) BASIC FAMIL Y Jun 24, 2009 112 [id number] [phone] ABHILASH GARAY PATIENT [place] FEP PREFERRED PROVIDER ORGANIZAT ION (PPO) BASIC FAMIL Y Jun 24, 2009 [id number] ABHILASH GARAY PATIENT [place] F[place] DENTAL DENTAL INSURANCE BASIC Jul 12, 2009 DENTAL [id number] ABHILASH GARAY PATIENT [place] F[place] PREFERRED PROVIDER ORGANIZAT ION (PPO) BASIC FAMIL Y Jun 24, 2009 [id number] ABHILASH GARAY PATIENT [place] FEP ([id number]) PRESCRIPT ION FEPRX Jun 24, 2009 [id number] [phone] ABHILASH GARAY PATIENT [place] FEP BCBS PRESCRIPT ION CAREM ARK FEPRX PLAN Nov 21, 2021 [id number] ABHILASH GARAY PATIENT [place] FEPRX PLAN PRESCRIPT ION CAREM ARK FEPRX Nov 21, 2021 [id number] ABHILASH GARAY PATIENT [place]-F EP BCBS PRESCRIPT ION FEP CAREM ARK Nov 21, 2021 [id number] ABHILASH GARAY PATIENT [place]-F EP BCBS PRESCRIPT ION FEP Jun 23, 2010 [id number] ABHILASH GARAY PATIENT MEDICARE (WN) MEDICARE () PART A Feb 22, 2020 PART A [id number] [phone] ABHILASH GARAY PATIENT MEDICARE ([facility]) MEDICARE () PART A Feb 22, 2020 PART A [id number] NV71 [phone] ABHILASH GARAY PATIENT MEDICARE (WNR) MEDICARE (M) PART A Feb 22, 2020 PART A [id number] ABHILASH GARAY PATIENT MEDICARE (WNR) MEDICARE (M) PART A Feb 22, 2020 PART A [id number] ABHILASH GARAY PATIENT MEDICARE (WNR) MEDICARE (M) PART A Feb 22, 2020 PART A [id number] [phone] ABHILASH GARAY PATIENT Selected Encounter This section includes the information on [place] at [place] for the Encounter. Date/Time Encounter Type Encounter Description Reason Pro vider Source Aug 29, 2023 12:00 PM Outpatient Encounter COMMUNITY CARE [...] - MEDICINE [place] [facility] Sep 04, 2023 01:00 PM AMBULATORY [place]ICINE [place] [facility] Sep 08, 2023 11:00 AM AMBULATORY [place]ICINE [place] [facility] Sep 11, 2023 01:00 PM AMBULATORY [place]ICINE [place] [facility] Sep 16, 2023 11:00 AM AMBULATORY [place]ICINE [place] [facility] Sep 29, 2023 11:00 AM AMBULATORY [place]ICINE [place] [facility] Oct 02, 2023 01:00 PM AMBULATORY [place]ICINE [place] [facility] Oct 06, 2023 11:00 AM AMBULATORY [place]ICINE [place] [facility] Oct 06, 2023 12:40 PM AMBULATORY [place]ICINE [place] [facility] Oct 09, 2023 01:00 PM AMBULATORY - MEDICINE [place] [facility] Oct 13, 2023 11:00 AM AMBULATORY - [place]ICINE [place] [facility] Oct 16, 2023 01:00 PM AMBULATORY - MEDICINE [place] [facility] Oct 20, 2023 11:00 AM AMBULATORY - [place]ICINE [place] [facility] October 23, 2023 01:00 PM AMBULATORY - MEDICINE [place] [facility] October 27, 2023 11:00 AM AMBULATORY - MEDICINE [place] [facility] November 03, 2023 11:00 AM AMBULATORY [place]ICINE [place] [facility] November 03, 2023 01:00 PM AMBULATORY [place]ICINE [place] [facility] November 06, 2023 01:00 PM AMBULATORY - [place]ICINE [place] [facility] November 06, 2023 02:00 PM AMBULATORY - MEDICINE [place] [facility] November 10, 2023 11:00 AM AMBULATORY [place] [facility] Social History: Smoking Status (Most current) [...] AM [facility] Tobacco Use History This section includes a history of the smoking, or tobacco-related health factors, that were collected on or before the date of the Encounter. The data comes from the [place] facility where the Encounter took place. Date/Time Smoking Status/Tobacco Use Comment F darvin Aug 09, 2021 09:20 AM [facility]TOBACCO [facility] Encounter Notes: All associated encounter notes This section contains the clinical notes associated to the Encounter. Date/Time Encounter Note(s) Provider Source Aug 29, 2023 12:00 PM NONVA CONSULT: LOCAL TITLE: COMMUNITY CARE-CONSULT RESULT NOTE STANDARD TITLE: NONVA CONSULT DATE OF NOTE: AUG 29, 2023@12:00 ENTRY DATE: OCT 15, 2023@15:12:54 AUTHOR: ADITHYA ZAMORA EXP COSIGNER: URGENCY: STATUS: COMPLETED VistA Imaging - Scanned Document NE DERM+LASER-OFFICE NOTES SCANNED DOCUMENT SIGNATURE NOT REQUIRED Electronically Filed: 10/15/2023 by: ADITHYA ZAMORA GRADE CHECKER ADITHYA ZAMORA [facility] Aug 29, 2023 12:00 PM NONVA CONSULT: LOCAL TITLE: COMMUNITY CARE-CONSULT RESULT NOTE STANDARD TITLE: NONVA CONSULT DATE OF NOTE: AUG 29, 2023@12:00 ENTRY DATE: DEC 01, 2023@12:04:48 AUTHOR: MARY KATE GOODSON EXP COSIGNER: URGENCY: STATUS: COMPLETED VistA Imaging - Scanned Document SCANNED DOCUMENT SIGNATURE NOT REQUIRED Electronically Filed: 12/01/2023 by: MARY KATE GOODSON GRADE CHECKER MARY KATE GOODSON [facility]
--- OUTSIDE RECORDS SUMMARY | 2024-06-29 18:57 | XMS_ITS | Encounter Summary ---
Author Name [facility] [place] [facility] [place] Address [address] [place] [address] Care Team Providers Care Project Buyer Name Role Phone ABDIRAHMAN LAKE Primary Care [...] BASIC FAMIL Y Jun 24, 2009 112 [id number] [phone] ABHILASH GARAY PATIENT ANTHEM [place]BS [place] F[place] PREFERRED PROVIDER ORGANIZAT ION (PPO) FEP BASIC FAM Jun 24, 2009 112 [id number] [phone] ABHILASH GARAY PATIENT ANTHEM BCBS [place] F[place] PREFERRED PROVIDER ORGANIZAT ION (PPO) FEP BASIC FAM Jun 24, 2009 112 [id number] [phone] ABHILASH GARAY PATIENT [place] PREFERRED PROVIDER ORGANIZAT ION (PPO) FEP BASIC FAM Jun 24, 2009 112 [id number] [phone] ABHILASH GARAY PATIENT [place] F[place] PREFERRED PROVIDER ORGANIZAT ION (PPO) FEP BASIC FAM Jun 24, 2009 112 [id number] [phone] ABHILASH GARAY PATIENT BCBS [place] FEP PREFERRED PROVIDER ORGANIZAT ION (PPO) BASIC FAMIL Y Jun 24, 2009 112 [id number] ABHILASH GARAY PATIENT [place] PREFERRED PROVIDER ORGANIZAT ION (PPO) BASIC FAMIL Y Jun 24, 2009 [id number] ABHILASH GARAY PATIENT [place] PREFERRED PROVIDER ORGANIZAT ION (PPO) BASIC FAMIL Y Jun 24, 2009 112 [id number] [phone] ABHILASH GARAY PATIENT [place] F[place] DENTAL DENTAL INSURANCE BASIC Jul 12, 2009 DENTAL [id number] ABHILASH GARAY PATIENT [place] F[place] PREFERRED PROVIDER ORGANIZAT ION (PPO) BASIC FAMIL Y Jun 24, 2009 112 [id number] [phone] ABHILASH GARAY PATIENT [place] FEP ([id number]) PRESCRIPT ION FEPRX Jun 24, 2009 [id number] [phone] ABHILASH GARAY PATIENT [place] FEP BCBS PRESCRIPT ION CAREM ARK FEPRX PLAN Nov 21, 2021 [id number] ABHILASH GARAY PATIENT [employer] FEPRX PLAN PRESCRIPT ION CAREM ARK FEPRX Nov 21, 2021 [id number] ABHILASH GARAY PATIENT [place]-F EP BCBS PRESCRIPT ION FEP CAREM ARK Nov 21, 2021 [id number] ABHILASH GARAY PATIENT [place]-F EP BCBS PRESCRIPT ION FEP Jun 23, 2010 [id number] RUBI GARAYNETH PATIENT MEDICARE (WN) MEDICARE () PART A Feb 22, 2020 PART A [id number] ABHILASH GARAY PATIENT MEDICARE (WN) MEDICARE () PART A Feb 22, 2020 PART A [id number] [phone] ABHILASH GARAY PATIENT MEDICARE (WNR) MEDICARE (M) PART A Feb 22, 2020 PART A [id number] ABHILASH GARAY PATIENT MEDICARE (WNR) MEDICARE (M) PART A Feb 22, 2020 PART A [id number] ABHILASH GARAY PATIENT MEDICARE (WNR) MEDICARE (M) PART A Feb 22, 2020 PART A [id number] ABHILASH GARAY PATIENT Selected Encounter This section includes the information on record at [place] for the Encounter. Date/Time Encounter Type Encounter Description Reason Provider Source Oct 09, 2023 01:00 PM EXERCISE CLASS HEALTH/WELLBEING SRVS ICD-10-CM Y93.42 Activity, PAT Yoder [place] IHE Encounter Template Text not used by [place] Assessments - Encounter Diagnoses This section includes the primary and secondary diagnoses documented for the Encounter. Date/Time Primary/Secondary Diagnosis Diagnosis Name Provider Source Oct 09, 2023 03:37 PM PRIMARY Activity, PEDRO Yoder [facility] [place] [facility] Plan of Treatment: Future Appointments (+ 6 months) and Future Tests (+/- 45 days) The Plan of Treatment section includes future care activities for the patient from all [place] treatmentfacilities. This section includes future appointments and future orders which are active, pending or scheduled. Future Appointments This section includes appointments that were scheduled to occur 6 months from the date of the Encounter, up to a maximum of 20 appointments. The data comes from all [place] treatment facilities. Appointment Date/Time Appointment Type Appointme nt Facility Name Oct 13, 2023 11:00 AM AMBULATORY - MEDICINE [place] [facility] [place] [facility] Oct 16, 2023 01:00 PM AMBULATORY - MEDICINE [place] [facility] [facility] Oct 20, 2023 11:00 AM AMBULATORY - MEDICINE [place] [facility] [facility] October 23, 2023 01:00 PM AMBULATORY - MEDICINE [place] [facility] [facility] October 27, 2023 11:00 AM AMBULATORY - MEDICINE [place] [facility] [place] [facility] November 03, 2023 11:00 AM AM[facility]ULATORY [facility]INE [place] [facility] [place] [facility] November 03, 2023 01:00 PM AM[facility]ULATORY [facility] MEDICINE [facility] [place] [facility] November 06, 2023 01:00 PM [facility]ULATORY [facility]INE [facility] [place] [facility] November 06, 2023 02:00 PM [facility]ULATORY [facility]ICINE [facility] [place] [facility] November 10, 2023 11:00 AM [facility]INE [facility] [place] [facility] November 13, 2023 10:30 AM [facility]ULATORY [facility]INE [facility] [place] [facility] November 18, 2023 11:00 AM AM[facility]ULATORY [facility]INE [facility] [facility] November 20, 2023 10:30 AM AMBULATORY [facility]ICINE [facility] [facility] November 20, 2023 01:00 PM [facility]ULATORY [facility]ICINE [facility] [place] [facility] Nov 27, 2023 02:00 PM [facility]UL[facility]ORY [place]ICINE [place] Dec 02, 2023 11:00 AM [facility]ULATORY [facility]ICINE [facility] [place] [facility] Dec 02, 2023 02:30 PM AMBULATORY - MEDICINE [facility] [place] [facility] Dec 04, 2023 01:00 PM AM[facility]ULATORY [facility]ICINE [facility] [place] [facility] Dec 08, 2023 11:00 AM AM[facility]ULATORY [facility]ICINE [facility] [place] [facility] Dec 11, 2023 01:00 PM AMBULATORY - MEDICINE [facility] [place] [facility] Social History: Smoking Status (Most current) and Tobacco Use (All prior to encounter date) This section includes the most current, and the historical, smoking and tobacco- related health factors from the [place] facility where the Encounter took place. Current Smoking Status This section includes the most current smoking, or tobacco-related health factor, from the [place] facility where the Encounter took place. Date/Time Current Smoking Status Comment Facil ity Apr 08, 2023 09:12 AM [place]-TOBACCO NEVER USED [facility] [place] [facility] Tobacco Use History This section includes a history of the smoking, or tobacco-related health factors, that were collected on or before the date of the Encounter. The data comes from the [place] facility where the Encounter took place. Date/Time Smoking Status/Tobacco Use Comment Gilberto boston Aug 09, 2021 09:20 AM [place]-TOBACCO NEVER USED [facility] Encounter Notes: All associated encounter notes This section contains the clinical notes associated to the Encounter. Date/Time Encounter Note(s) Provider Source Oct 09, 2023 01:00 PM RECREATIONAL THERA PY NOTE: LOCAL TITLE: YOGA WELLBEING STANDARD TITLE: RECREATIONAL THERAPY NOTE DATE OF NOTE: OCT 09, 2023@13:00 ENTRY DATE: OCT 09, 2023@15:34:41 AUTHOR: MARY KATE MOORE EXP COSIGNER: URGENCY: STATUS: COMPLETED Group Yoga Class Total time: 60 minutes Class Focus: Breath awareness, mindful movement, relaxation, and gratitude to balance the nervous system and enhance overall well-being. The Practice: Longhana Pranayama to down-regulate the nervous system; postures that included, but were not limited to, moving warm-up, half sun salutation, sun salutation A variation, tree, triangle pose, wide leg forward bend, [place] 2, Extended Side Angle Pose, Intense Side Stretch, [place] 1, plank, cobra, locust, downward facing dog, [...] schedule allows. /yunior/ MARY KATE MOORE [id number] Dress Fitter Signed: 10/09/2023 15:44 MARY KATE MOORE [place] BLANCANEW [facility]
--- OUTSIDE RECORDS SUMMARY | 2024-06-29 18:58 | XMS_ITS | Encounter Summary ---
Author Name [facility] [place] Address [address] [place] [address] Care Team Providers Care Epic Anesthesia Analyst Name Role Phone ABDIRAHMAN LAKE Primary [...] BASIC FAMIL Y Jun 24, 2009 [id number] [phone] ABHILASH GARAY PATIENT ANTHEM BCBS [place] F[place] PREFERRED PROVIDER ORGANIZAT ION (PPO) FEP BASIC FAM Jun 24, 2009 112 [id number] [phone] ABHILASH GARAY PATIENT ANTHEM BCBS [place] F[place] PREFERRED PROVIDER ORGANIZAT ION (PPO) FEP BASIC FAM Jun 24, 2009 112 [id number] [phone] ABHILASH GARAY PATIENT [place] PREFERRED PROVIDER ORGANIZAT ION (PPO) FEP BASIC FAM Jun 24, 2009 112 [id number] [phone] ABHILASH GARAY PATIENT [place] PREFERRED PROVIDER ORGANIZAT ION (PPO) FEP BASIC FAM Jun 24, 2009 112 [id number] [phone] ABHILASH GARAY PATIENT [place]BS [place] F[place] PREFERRED PROVIDER ORGANIZAT ION (PPO) BASIC FAMIL Y Jun 24, 2009 [id number] ABHILASH GARAY PATIENT [place] F[place] PREFERRED PROVIDER ORGANIZAT ION (PPO) BASIC FAMIL Y Jun 24, 2009 [id number] ABHILASH GARAY PATIENT [place] PREFERRED PROVIDER ORGANIZAT ION (PPO) BASIC FAMIL Y Jun 24, 2009 [id number] ABHILASH GARAY PATIENT [place] F[place] DENTAL DENTAL INSURANCE BASIC Jul 12, 2009 DENTAL [id number] ABHILASH GARAY PATIENT [place] F[place] PREFERRED PROVIDER ORGANIZAT ION (PPO) BASIC FAMIL Y Jun 24, 2009 112 [id number] [phone] ABHILASH GARAY PATIENT [employer] FEP ([id number]) PRESCRIPT ION FEPRX Jun 24, 2009 [id number] [phone] ABHILASH GARAY PATIENT [employer] FEP BCBS PRESCRIPT ION CAREM ARK FEPRX PLAN Nov 21, 2021 [id number] ABHILASH GARAY PATIENT [employer] FEPRX PLAN PRESCRIPT ION CAREM ARK FEPRX Nov 21, 2021 [id number] ABHILASH GARAY PATIENT [employer]-F EP BCBS PRESCRIPT ION FEP CAREM ARK Nov 21, 2021 [id number] ABHILASH GARAY PATIENT [employer]-F EP BCBS PRESCRIPT ION FEP Jun 23, 2010 [id number] RUBI GARAYNETH PATIENT MEDICARE (WN) MEDICARE () PART A Feb 22, 2020 PART A [id number] ABHILASH GARAY PATIENT MEDICARE (WN) MEDICARE () PART A Feb 22, 2020 PART A [id number] ABHILASH GARAY PATIENT MEDICARE (WNR) MEDICARE (M) PART A Feb 22, 2020 PART A [id number] NV71 [phone] ABHILASH GARAY PATIENT MEDICARE (WNR) MEDICARE (M) PART A Feb 22, 2020 PART A [id number] NV71 [phone] ABHILASH GARAY PATIENT MEDICARE (WNR) MEDICARE (M) PART A Feb 22, 2020 PART A [id number] NV71 [phone] ABHILASH GARAY PATIENT Selected Encounter This section includes the information on record at [place] for the Encounter. Date/Time Encounter Type Encounter Description Reason Provider Source Oct 20, 2023 11:00 AM EXERCISE CLASS HEALTH/WELLBEING SRVS ICD-10-CM Y93.42 Activity, PAT Yoder [place] IHE Encounter Template Text not used by [place] Assessments - Encounter Diagnoses This section includes the primary and secondary diagnoses documented for the Encounter. Date/Time Primary/Secondary Diagnosis Diagnosis Name Provider Source Oct 21, 2023 03:38 PM PRIMARY Activity, PEDRO Yoder [facility] [place] [facility] Plan of Treatment: Future Appointments (+ [...] Date/Time Appointment Type Appointme nt Facility Name October 23, 2023 01:00 PM AMBULATORY - MEDICINE [place] [facility] [place] [facility] October 27, 2023 11:00 AM AMBULATORY - [place]ICINE [place] [facility] [place] [facility] November 03, 2023 11:00 AM AMBULATORY - MEDICINE [place] [facility] [facility] November 03, 2023 01:00 PM AMBULATORY - MEDICINE [place] [facility] [facility] November 06, 2023 01:00 PM AMBULATORY - MEDICINE [place] [facility] [place] [facility] November 06, 2023 02:00 PM AMBULATORY - MEDICINE [place] [facility] [place] [facility] November 10, 2023 11:00 AM AMBULATORY - MEDICINE [place] [facility] [facility] November 13, 2023 10:30 AM AMBULATORY - MEDICINE [facility] [place] [facility] November 18, 2023 11:00 AM AMBULATORY - MEDICINE [facility] [place] [facility] November 20, 2023 10:30 AM AMBULATORY [facility] MEDICINE [facility] [facility] November 20, 2023 01:00 PM AMBULATORY [facility]ICINE [facility] [facility] Nov 27, 2023 02:00 PM [facility] Dec 02, 2023 11:00 AM AMBULATORY [facility] MEDICINE [place] [facility] [place] [facility] Dec 02, 2023 02:30 PM AMBULATORY - MEDICINE [facility] [place] [facility] Dec 04, 2023 01:00 PM AMBULATORY - MEDICINE [facility] [place] [facility] Dec 08, 2023 11:00 AM AMBULATORY [facility]ICINE [facility] [place] [facility] Dec 11, 2023 01:00 PM AMBULATORY - MEDICINE [facility] [facility] Dec 15, 2023 11:00 AM AM[facility]ULATORY [facility]ICINE [facility] [facility] Dec 15, 2023 03:00 PM AM[facility]ULATORY [place] [facility]ICINE [place] [facility] [place] [facility] Dec 17, 2023 02:00 PM AMBULATORY - REHAB [facility] Social History: Smoking Status (Most current) [...] [place]-TOBACCO NEVER USED [facility] [place] [facility] Tobacco Use History This section includes a history of the smoking, or tobacco-related health factors, that were collected on or before the date of the Encounter. The data comes from the [place] facility where the Encounter took place. Date/Time Smoking Status/Tobacco Use Comment F darvin Aug 09, 2021 09:20 AM [place] Encounter Notes: All associated encounter notes This section contains the clinical notes associated to the Encounter. Date/Time Encounter Note(s) Provider Source Oct 20, 2023 11:00 AM RECREATIONAL THERA PY NOTE: LOCAL TITLE: YOGA WELLBEING STANDARD TITLE: RECREATIONAL THERAPY NOTE DATE OF NOTE: OCT 20, 2023@11:00 ENTRY DATE: OCT 21, 2023@15:33:48 AUTHOR: MARY KATE MOORE COSIGNER: URGENCY: STATUS: [...] tree, triangle pose, wide leg forward bend, [place] 2, Extended Side Angle Pose, Intense Side Stretch, [place] 1, plank, cobra, locust, downward facing dog, [...] as his schedule allows. /yunior/ ROXANNA [id number] Steam Roller Operator Signed: 10/21/2023 15:48 MARY KATE MOORE [place] [facility]
--- OUTSIDE RECORDS SUMMARY | 2024-06-29 18:58 | XMS_ITS ---
Author Name [facility] [place] Address [address] [place] [address] Care Team Providers Care Casing In Line Feeder Name Role Phone ABDIRAHMAN LAKE Primary Care [...] BASIC FAMIL Y Jun 24, 2009 [id number] [phone] ABHILASH GARAY PATIENT ANTHEM BCBS [place] FEP PREFERRED PROVIDER ORGANIZAT ION (PPO) FEP BASIC FAM Jun 24, 2009 112 [id number] [phone] ABHILASH GARAY PATIENT ANTHEM BCBS [place] F[place] PREFERRED PROVIDER ORGANIZAT ION (PPO) FEP BASIC FAM Jun 24, 2009 112 [id number] [phone] ABHILASH GARAY PATIENT [place]THE[place] PREFERRED PROVIDER ORGANIZAT ION (PPO) FEP BASIC FAM Jun 24, 2009 112 [id number] [phone] ABHILASH GARAY PATIENT [place] PREFERRED PROVIDER ORGANIZAT ION (PPO) FEP BASIC FAM Jun 24, 2009 112 [id number] [phone] ABHILASH GARAY PATIENT [place] F[place] PREFERRED PROVIDER ORGANIZAT ION (PPO) BASIC FAMIL Y Jun 24, 2009 [id number] ABHILASH GARAY PATIENT [place] PREFERRED PROVIDER ORGANIZAT ION (PPO) BASIC FAMIL Y Jun 24, 2009 [id number] ABHILASH GARAY PATIENT [place] PREFERRED PROVIDER ORGANIZAT ION (PPO) BASIC FAMIL Y Jun 24, 2009 112 [id number] [phone] ABHILASH GARAY PATIENT [place] FEP DENTAL DENTAL INSURANCE BASIC Jul 12, 2009 DENTAL [id number] [phone] ABHILASH GARAY PATIENT [place] PREFERRED PROVIDER ORGANIZAT ION (PPO) BASIC FAMIL Y Jun 24, 2009 [id number] ABHILASH GARAY PATIENT [employer] FEP ([id number]) PRESCRIPT ION FEPRX Jun 24, 2009 [id number] [phone] ABHILASH GARAY PATIENT [place] FEP BCBS PRESCRIPT ION CAREM ARK FEPRX PLAN Nov 21, 2021 [id number] ABHILASH GARAY PATIENT [employer] FEPRX PLAN PRESCRIPT ION CAREM ARK FEPRX Nov 21, 2021 [id number] ABHILASH GARAY PATIENT [employer]-F [place] BCBS PRESCRIPT ION FEP CAREM ARK Nov 21, 2021 [id number] ABHILASH GARAY PATIENT [place]-F EP BCBS PRESCRIPT ION FEP Jun 23, 2010 [id number] RUBI GARAYNETH PATIENT MEDICARE (WN) MEDICARE () PART A Feb 22, 2020 PART A [id number] ABHILASH GARYA PATIENT MEDICARE (WN) MEDICARE () PART A Feb 22, 2020 PART A [id number] ABHILASH GARAY PATIENT MEDICARE (WNR) MEDICARE (M) PART A Feb 22, 2020 PART A [id number] ABHILASH GARAY PATIENT MEDICARE (WNR) MEDICARE (M) PART A Feb 22, 2020 PART A [id number] ABHILASH GARAY PATIENT MEDICARE (WNR) MEDICARE (M) PART A Feb 22, 2020 PART A [id number] ABHILASH GARAY PATIENT Selected Encounter This section includes the information on record at [place] for the Encounter. Date/Time Encounter Type Encounter Description Reason Provider Source October 23, 2023 01:00 PM EXERCISE CLASS HEALTH/WELLBEING SRVS ICD-10-CM Y93.42 Activity, PAT Yoder [place] IHE Encounter Template Text not used by [place] Assessments - Encounter Diagnoses This section includes the primary and secondary diagnoses documented for the Encounter. Date/Time Primary/Secondary Diagnosis Diagnosis Name Provider Source October 23, 2023 03:40 PM PRIMARY Activity, PEDOR Yoder [facility] [place] [facility] Appointment Type Appointme nt Facility Name October 27, 2023 11:00 AM [place] [facility] November 03, 2023 11:00 AM [place] [facility] November 03, 2023 01:00 PM [place] [facility] November 06, 2023 01:00 PM AMBULATORY - MEDICINE [facility] [place] [facility] 2023 02:00 PM [facility] Dec 02, 2023 11:00 AM [facility] [place] [facility] [place] [facility] [place] [facility] Dec 02, 2023 02:30 PM AM[facility]ULATORY [facility]INE [facility] [place] [facility] Dec 04, 2023 01:00 PM AM[facility]ULATORY [facility]INE [facility] [place] [facility] Dec 08, 2023 11:00 AM AM[facility]ULATORY [facility] [place] [facility] Dec 11, 2023 01:00 PM AM[facility]ULATORY [facility]INE [facility] [place] [facility] Dec 15, 2023 11:00 AM AM[facility]ULAT[facility] [place] [facility] Dec 15, 2023 03:00 PM AMBULATORY [facility]ICINE [facility] [place] [facility] Dec 17, 2023 02:00 PM AM[facility]ULATORY - RE[facility]AB [facility] Dec 18, 2023 01:00 PM AMBULATORY [place] [facility] [place] [facility] Social History: Smoking Status (Most [...] 2023 09:12 AM VA-TOBACCO NEVER USED [place] [facility] [facility] Tobacco Use History This section includes a history of the smoking, or tobacco-related health factors, that were collected on or before the date of the Encounter. The data comes from the [place] facility where the Encounter took place. Date/Time Smoking Status/Tobacco Use Comment F darvin Aug 09, 2021 09:20 AM [place]ACCO [facility] Encounter Notes: All associated encounter notes This section contains the clinical notes associated to the Encounter. Date/Time Encounter Note(s) Provider Source October 23, 2023 01:00 PM RECREATIONAL THERA PY NOTE: LOCAL TITLE: YOGA WELLBEING STANDARD TITLE: RECREATIONAL THERAPY NOTE DATE OF NOTE: OCTOBER 23, 2023@13:00 ENTRY DATE: OCTOBER 23, 2023@15:39:30 AUTHOR: MARY KATE MOORE COSIGNER: URGENCY: STATUS: [...] tree, triangle pose, wide leg forward bend, [place] 2, Extended Side Angle Pose, Intense Side Stretch, [place] 1, plank, cobra, locust, downward facing dog, wisdom pose, contralateral limb raises, head to knee pose, bridge, reclined twist, and knees to chest; Systematic Relaxation; and Gratitude. Modifications were geared toward the 's individual needs and preferences. was one of six participants in Group Yoga. He fully participated, practicing all the postures offered and modifying according to his needs. He practiced excellent self-care and used his breath as a tool to enhance his practice. He will return to class as his schedule allows. /yunior/ ROXANNA [id number]-[id number] Wedding Transportation Driver Signed: 10/23/2023 15:46 MARY KATE MOORE [place] [facility]
--- OUTSIDE RECORDS SUMMARY | 2024-06-29 18:58 | XMS_ITS | Encounter Summary ---
Author Name [facility] [facility] [place] Address [address] [place] [address] Care Team Providers Care Canal Tender Name Role Phone ABDIRAHMAN LAKE Primary Care [...] BASIC FAMIL Y Jun 24, 2009 [id number] [phone] ABHILASH GARAY PATIENT ANTHEM BCBS [place] FEP PREFERRED PROVIDER ORGANIZAT ION (PPO) FEP BASIC FAM Jun 24, 2009 112 [id number] [phone] ABHILASH GARAY PATIENT ANTHEM [place]BS [place] FEP PREFERRED PROVIDER ORGANIZAT ION (PPO) FEP BASIC FAM Jun 24, 2009 112 [id number] [phone] ABHILASH GARAY PATIENT ANTHEM [place] PREFERRED PROVIDER ORGANIZAT ION (PPO) FEP BASIC FAM Jun 24, 2009 112 [id number] [phone] ABHILASH GARAY PATIENT [place] FEP PREFERRED PROVIDER ORGANIZAT ION (PPO) FEP BASIC FAM Jun 24, 2009 112 [id number] [phone] ABHILASH GARAY PATIENT [place]BS [place] FEP PREFERRED PROVIDER ORGANIZAT ION (PPO) BASIC FAMIL Y Jun 24, 2009 [id number] ABHILASH GARAY PATIENT [place] PREFERRED PROVIDER ORGANIZAT ION (PPO) BASIC FAMIL Y Jun 24, 2009 112 [id number] [phone] ABHILASH GARAY PATIENT [place] FEP PREFERRED PROVIDER ORGANIZAT ION (PPO) BASIC FAMIL Y Jun 24, 2009 112 [id number] [phone] ABHILASH GARAY PATIENT [place] FEP DENTAL DENTAL INSURANCE BASIC Jul 12, 2009 DENTAL [id number] ABHILASH GARAY PATIENT [place] FEP PREFERRED PROVIDER ORGANIZAT ION (PPO) BASIC FAMIL Y Jun 24, 2009 112 [id number] [phone] ABHILASH GARAY PATIENT [place] FEP ([id number]) PRESCRIPT ION FEPRX Jun 24, 2009 [id number] [phone] ABHILASH GARAY PATIENT [place] FEP BCBS PRESCRIPT ION CAREM ARK FEPRX PLAN Nov 21, 2021 [id number] ABHILASH GARAY PATIENT [employer] FEPRX PLAN PRESCRIPT ION CAREM ARK FEPRX Nov 21, 2021 [id number] ABHILASH GARAY PATIENT [place]-F EP BCBS PRESCRIPT ION FEP CAREM ARK Nov 21, 2021 [id number] ABHILASH GARAY PATIENT [place]-F EP BCBS PRESCRIPT ION FEP Jun 23, 2010 [id number] RUBI GARAYNETH PATIENT MEDICARE (WN) MEDICARE () PART A Feb 22, 2020 PART A [id number] [phone] ABHILASH GARAY PATIENT MEDICARE (WN) MEDICARE () PART A Feb 22, 2020 PART A [id number] [phone] ABHILASH GARAY PATIENT MEDICARE (WNR) MEDICARE (M) PART A Feb 22, 2020 PART A [id number] [id number] [phone] ABHILASH GARAY PATIENT MEDICARE (WNR) MEDICARE (M) PART A Feb 22, 2020 PART A [id number] [phone] ABHILASH GARAY PATIENT MEDICARE (WNR) MEDICARE (M) PART A Feb 22, 2020 PART A [id number] ABHILASH GARAY PATIENT Selected Encounter This section includes the information on record at [place] for the Encounter. Date/Time Encounter Type Encounter Description Reason Provider Source October 27, 2023 11:00 AM EXERCISE CLASS HEALTH/WELLBEING SRVS ICD-10-CM Y93.42 Activity, PAT Yoder CA IHE Encounter Template Text not used by [place] Assessments - Encounter Diagnoses This section includes the primary and secondary diagnoses documented for the Encounter. Date/Time Primary/Secondary Diagnosis Diagnosis Name Provider Source October 27, 2023 02:34 PM PRIMARY Activity, PEDRO Yoder [facility] [place] [facility] Plan of Treatment: Future Appointments (+ 6 months) and Future Tests (+/- 45 days) The Plan of Treatment section includes future care activities for the patient from all [place] treatmentfacilities. This section includes future appointments and future orders which are active, pending or scheduled. Future Appointments This section includes appointments that were scheduled to occur 6 months from the date of the Encounter, up to a maximum of 20 appointments. The data comes from all [place] treatment facilities. Appointment Date/Time Appointment Type Appointme nt Facility Name November 03, 2023 11:00 AM AMBULATORY - MEDICINE [place] [facility] [place] [facility] November 03, 2023 01:00 PM AMBULATORY - MEDICINE [place] [facility] [place] [facility] November 06, 2023 01:00 PM AMBULATORY - MEDICINE [place] [facility] [place] [facility] November 06, 2023 02:00 PM AMBULATORY - MEDICINE [facility] [place] [place] [facility] November 10, 2023 11:00 AM AMBULATORY - MEDICINE [place] [facility] [place] [facility] November 13, 2023 10:30 AM AMBULATORY - MEDICINE [place] [facility] [place] [facility] November 18, 2023 11:00 AM AMBULATORY - MEDICINE [place] [facility] [place] [facility] November 20, 2023 10:30 AM AMBULATORY - MEDICINE [place] [facility] [place] [facility] November 20, 2023 01:00 PM AMBULATORY - MEDICINE [place] [facility] [place] [facility] Nov 27, 2023 02:00 PM [facility] Dec 02, 2023 11:00 AM AMBULATORY - MEDICINE [place] [facility] [place] [facility] Dec 02, 2023 02:30 PM AMBULATORY - MEDICINE [place] [facility] [place] [facility] Dec 04, 2023 01:00 PM AMBULATORY - MEDICINE [facility] [place] [facility] Dec 08, 2023 11:00 AM AMBULATORY - MEDICINE [place] [facility] [place] [facility] Dec 11, 2023 01:00 PM AMBULATORY - MEDICINE [place] [facility] [place] [facility] Dec 15, 2023 11:00 AM AMBULATORY - MEDICINE [facility] [place] [facility] Dec 15, 2023 03:00 PM AMBULATORY - MEDICINE [place] [facility] [place] [facility] Dec 17, 2023 02:00 PM AM[facility]ULATORY - [facility] [place] Dec 18, 2023 01:00 PM AMBULATORY - MEDICINE [facility] [place] [facility] Dec 22, 2023 10:30 AM [facility] Social History: Smoking Status (Most [...] 08, 2023 09:12 AM VA-TOBACCO NEVER USED [place] [facility] [place] [facility] Tobacco Use History This section includes a history of the smoking, or tobacco-related health factors, that were collected on or before the date of the Encounter. The data comes from the [place] facility where the Encounter took place. Date/Time Smoking Status/Tobacco Use Comment F darvin Aug 09, 2021 09:20 AM [place]-TOBACCO NEVER USED [facility] Encounter Notes: All associated encounter notes This section contains the clinical notes associated to the Encounter. Date/Time Encounter Note(s) Provider Source October 27, 2023 11:00 AM RECREATIONAL THERA PY NOTE: LOCAL TITLE: [place]OGA WELLBEING STANDARD TITLE: RECREATIONAL THERAPY NOTE DATE OF NOTE: OCTOBER 27, 2023@11:00 ENTRY DATE: OCTOBER 27, 2023@14:31:34 AUTHOR: MARY KATE MOORE COSIGNER: URGENCY: STATUS: [...] tree, triangle pose, wide leg forward bend, [place] 2, Extended Side Angle Pose, Intense Side Stretch, [place] 1, plank, cobra, locust, downward facing dog, [...] attentive to his breath throughout the session. [place] will return to class as his schedule allows. /yunior/ MARY KATE MOORE [id number] Soc Analyst Signed: 10/27/2023 14:39 [facility]ATE MOORE [facility]
--- OUTSIDE RECORDS SUMMARY | 2024-06-29 18:58 | XMS_ITS | Encounter Summary ---
Author Name [facility] [place] [facility] [place] Address [address] [place] [address] Care Team Providers Care Sewer Maintenance Supervisor Name Role Phone ABDIRAHMAN LAKE Primary [...] BASIC FAMIL Y Jun 24, 2009 112 [id number] [phone] ABHILASH GARAY PATIENT ANTHEM BCBS [place] F[place] PREFERRED PROVIDER ORGANIZAT ION (PPO) FEP BASIC FAM Jun 24, 2009 112 [id number] [phone] ABHILASH GARAY PATIENT ANTHE[place] F[place] PREFERRED PROVIDER ORGANIZAT ION (PPO) FEP BASIC FAM Jun 24, 2009 112 [id number] [phone] ABHILASH GARAY PATIENT [place] PREFERRED PROVIDER ORGANIZAT ION (PPO) FEP BASIC FAM Jun 24, 2009 112 [id number] [phone] ABHILASH GARAY PATIENT [place] PREFERRED PROVIDER ORGANIZAT ION (PPO) FEP BASIC FAM Jun 24, 2009 112 [id number] [phone] ABHILASH GARAY PATIENT [place] F[place] PREFERRED PROVIDER ORGANIZAT ION (PPO) BASIC FAMIL Y Jun 24, 2009 [id number] ABHILASH GARAY PATIENT [place] PREFERRED PROVIDER ORGANIZAT ION (PPO) BASIC FAMIL Y Jun 24, 2009 112 [id number] [phone] ABHILASH GARAY PATIENT [place] FEP PREFERRED PROVIDER ORGANIZAT ION (PPO) BASIC FAMIL Y Jun 24, 2009 112 [id number] ABHILASH GARAY PATIENT [place] DENTAL DENTAL INSURANCE BASIC Jul 12, 2009 DENTAL [id number] [phone] ABHILASH GARAY PATIENT [place] PREFERRED PROVIDER ORGANIZAT ION (PPO) BASIC FAMIL Y Jun 24, 2009 112 [id number] ABHILASH GARAY PATIENT [employer] FEP ([id number]) PRESCRIPT ION FEPRX Jun 24, 2009 [id number] [phone] ABHILASH GARAY PATIENT [place] FEP BCBS PRESCRIPT ION CAREM ARK FEPRX PLAN Nov 21, 2021 [id number] ABHILASH GARAY PATIENT [employer] FEPRX PLAN PRESCRIPT ION CAREM ARK FEPRX Nov 21, 2021 [id number] ABHILASH GARAY PATIENT [employer]-F EP BCBS PRESCRIPT ION FEP CAREM ARK Nov 21, 2021 [id number] ABHILASH GARAY PATIENT [employer]-F EP BCBS PRESCRIPT ION FEP Jun 23, 2010 [id number] ABHILASH GARAY PATIENT MEDICARE (WN) MEDICARE () PART A Feb 22, 2020 PART A [id number] ABHILASH GARAY PATIENT MEDICARE ([facility]) MEDICARE () PART A Feb 22, 2020 PART A [id number] NV71 [phone] ABHILASH GARAY PATIENT MEDICARE (WNR) MEDICARE (M) PART A Feb 22, 2020 PART A [id number] ABHILASH GARAY PATIENT MEDICARE (WNR) MEDICARE (M) PART A Feb 22, 2020 PART A [id number] ABHILASH GARAY PATIENT MEDICARE (WNR) MEDICARE (M) PART A Feb 22, 2020 PART A [id number] ABHILASH GARAY PATIENT Selected Encounter This section includes the information on record at [place] for the Encounter. Date/Time Encounter Type Encounter Description Reason Pro vider Source Oct 06, 2023 12:00 AM Outpatient Encounter EVENT (HISTORICAL) [...] 09, 2023 01:00 PM AMBULATORY - MEDICINE [place] [place] [facility] Oct 13, 2023 11:00 AM AMBULATORY - MEDICINE [place] [facility] [place] [facility] Oct 16, 2023 01:00 PM AMBULATORY - MEDICINE [place] [facility] [place] [facility] Oct 20, 2023 11:00 AM AMBULATORY - MEDICINE [place] [facility] [place] [facility] October 23, 2023 01:00 PM AMBULATORY - MEDICINE [place] [facility] [place] [facility] October 27, 2023 11:00 AM AMBULATORY - MEDICINE [place] [facility] [place] [facility] November 03, 2023 11:00 AM AMBULATORY - MEDICINE [facility] [place] [place] [facility] November 03, 2023 01:00 PM AMBULATORY - MEDICINE [place] [facility] [place] [facility] [...] 2023 02:00 PM [facility] Dec 02, 2023 11:00 AM AMBULATORY [...] 08, 2023 09:12 AM VA-TOBACCO NEVER USED [place] [facility] Tobacco Use History This section includes a history of the smoking, or tobacco-related health factors, that were collected on or before the date of the Encounter. The data comes from the [place] facility where the Encounter took place. Date/Time Smoking Status/Tobacco Use Comment F darvin Aug 09, 2021 09:20 AM VA-TOBACCO NEVER USED [place] [facility] Encounter Notes: All associated encounter notes This section contains the clinical notes associated to the Encounter. Date/Time Encounter Note(s) Provider Source Oct 06, 2023 12:00 AM NONVA NOTE: LOCAL TITLE: NON-VA OUTPATIENT NOTES STANDARD TITLE: NONVA NOTE DATE OF NOTE: OCT 06, 2023 ENTRY DATE: OCTOBER 27, 2023@10:10:25 AUTHOR: DAHIANA MCMILLAN EXP COSIGNER: URGENCY: STATUS: COMPLETED VistA Imaging - Scanned Document SCANNED DOCUMENT SIGNATURE NOT REQUIRED Electronically Filed: 10/27/2023 by: DAHIANA JANG [place] [facility]
--- OUTSIDE RECORDS SUMMARY | 2024-06-29 18:58 | XMS_ITS ---
Author Name [facility] [place] Address [address] [place] [address] Care Team Providers Care Senior It Assistant Name Role Phone ABDIRAHMAN LAKE Primary [...] BASIC FAMIL Y Jun 24, 2009 [id number] [phone] ABHILASH GARAY PATIENT ANTHEM BCBS [place] FEP PREFERRED PROVIDER ORGANIZAT ION (PPO) FEP BASIC FAM Jun 24, 2009 112 [id number] [phone] ABHILASH GARAY PATIENT ANTHEM [place] F[place] PREFERRED PROVIDER ORGANIZAT ION (PPO) FEP BASIC FAM Jun 24, 2009 112 [id number] [phone] ABHILASH GARAY PATIENT [place] PREFERRED PROVIDER ORGANIZAT ION (PPO) FEP BASIC FAM Jun 24, 2009 112 [id number] [phone] ABHILASH GARAY PATIENT [place] PREFERRED PROVIDER ORGANIZAT ION (PPO) FEP BASIC FAM Jun 24, 2009 112 [id number] [phone] ABHILASH GARAY PATIENT [place] PREFERRED PROVIDER ORGANIZAT ION (PPO) BASIC FAMIL Y Jun 24, 2009 [id number] ABHILASH GARAY PATIENT [place] PREFERRED PROVIDER ORGANIZAT ION (PPO) BASIC FAMIL Y Jun 24, 2009 112 [id number] [phone] ABHILASH GARAY PATIENT [place] FEP PREFERRED PROVIDER ORGANIZAT ION (PPO) BASIC FAMIL Y Jun 24, 2009 112 [id number] [phone] ABHILASH GARAY PATIENT [place] F[place] DENTAL DENTAL INSURANCE BASIC Jul 12, 2009 DENTAL [id number] ABHILASH GARAY PATIENT [place] PREFERRED PROVIDER ORGANIZAT ION (PPO) BASIC FAMIL Y Jun 24, 2009 [id number] ABHILASH GARAY PATIENT [employer] FEP ([id number]) PRESCRIPT ION FEPRX Jun 24, 2009 [id number] [phone] ABHILASH GARAY PATIENT [place] FEP BCBS PRESCRIPT ION CAREM ARK FEPRX PLAN Nov 21, 2021 [id number] ABHILASH GARAY PATIENT [employer] FEPRX PLAN PRESCRIPT ION CAREM ARK FEPRX Nov 21, 2021 [id number] ABHILASH GARAY PATIENT [employer]-F EP BCBS PRESCRIPT ION FEP CAREM ARK Nov 21, 2021 [id number] ABHILASH GARAY PATIENT [employer]-F EP BCBS PRESCRIPT ION FEP Jun 23, 2010 [id number] ABHILASH GARAY PATIENT MEDICARE (WN) MEDICARE () PART A Feb 22, 2020 PART A [id number] [phone] ABHILASH GARAY PATIENT MEDICARE ([place]) MEDICARE () PART A Feb 22, 2020 PART A [id number] ABHILASH GARAY PATIENT MEDICARE (WNR) MEDICARE (M) PART A Feb 22, 2020 PART A [id number] NV71 [id number] ABHILASH GARAY PATIENT MEDICARE (WNR) MEDICARE (M) PART A Feb 22, 2020 PART A [id number] ABHILASH GARAY PATIENT MEDICARE (WNR) MEDICARE (M) PART A Feb 22, 2020 PART A [id number] ABHILASH GARAY PATIENT Selected Encounter This section includes the information on record at [place] for the Encounter. Date/Time Encounter Type Encounter Description Reason Pro vider Source October 22, 2023 12:52 PM Outpatient Encounter COMMUNITY CARE CONSULT IHE [...] 23, 2023 01:00 PM AMBULATORY - MEDICINE [facility] [place] [place] [facility] October 27, 2023 11:00 AM AMBULATORY - MEDICINE [place] [facility] November 03, 2023 11:00 AM AMBULATORY - MEDICINE [place] [facility] [place] [facility] November 03, 2023 01:00 PM AMBULATORY - MEDICINE [place] [facility] [place] [facility] November 06, 2023 01:00 PM AMBULATORY - MEDICINE [place] [facility] [place] [place] [facility] November 06, 2023 02:00 PM AMBULATORY - MEDICINE [place] [facility] [place] [facility] November 10, 2023 11:00 AM AMBULATORY - MEDICINE [place] [facility] [place] [facility] November 13, 2023 10:30 AM AMBULATORY - MEDICINE [place] [facility] [place] [facility] November 18, 2023 11:00 AM AMBULATORY - MEDICINE [place] [facility] [place] [facility] November 20, 2023 10:30 AM AMBULATORY - MEDICINE [place] [facility] [place] [facility] November 20, 2023 01:00 PM AMBULATORY - MEDICINE [place] [facility] [place] [facility] Nov 27, 2023 02:00 PM [facility] Dec 02, 2023 11:00 AM AMBULATORY - MEDICINE [place] [facility] [place] [facility] Dec 02, 2023 02:30 PM AMBULATORY - MEDICINE [place] [facility] [place] [facility] Dec 04, 2023 01:00 PM AMBULATORY - MEDICINE [place] [facility] [place] [facility] Dec 08, 2023 11:00 AM AMBULATORY - MEDICINE [place] [facility] [place] [facility] Dec 11, 2023 01:00 PM AMBULATORY - MEDICINE [place] [facility] [place] [facility] Dec 15, 2023 11:00 AM AMBULATORY - MEDICINE [place] [facility] [place] [facility] Dec 15, 2023 03:00 PM AMBULATORY - MEDICINE [place] [facility] [place] [facility] Dec 17, 2023 02:00 PM AMBULATORY - REHAB [facility] Social History: Smoking Status (Most current) [...] 2023 09:12 AM [facility] [place] [facility] Tobacco Use History This section includes a history of the smoking, or tobacco-related health factors, that were collected on or before the date of the Encounter. The data comes from the [place] facility where the Encounter took place. Date/Time Smoking Status/Tobacco Use Comment F darvin Aug 09, 2021 09:20 AM VA-TOBACCO NEVER USED [facility] Encounter Notes: All associated encounter notes This section contains the clinical notes associated to the Encounter. Date/Time Encounter Note(s) Provider Source October 28, 2023 03:16 PM ADDENDUM: LOCAL TITLE: Addendum STANDARD TITLE: ADDENDUM DATE OF NOTE: OCTOBER 28, 2023@15:16:17 ENTRY DATE: OCTOBER 28, 2023@15:16:18 AUTHOR: VESTA BLISS EXP COSIGNER: URGENCY: STATUS: COMPLETED Please place a dermatology consultation for continuity of care office for my signature /yunior/ VESTA BLISS MD PRIMARY CARE PHYSICIAN Signed: 10/28/2023 15:16 Receipt Acknowledged By: 10/29/2023 07:48 /yunior/ BREANNA BAKER RN-BC REGISTERED NURSE --- Original Document --- 10/22/23 ADMINISTRATIVE NOTE: OCC recv'd auth request from Chen @ [facility]. has an appt scheduled 10/24/23 @ 11:15am in [place] for photo therapy, continuation of care. If approved, a new consult is needed. Thank you. /oriana MEZA Signed: 10/22/2023 12:54 Receipt Acknowledged By: 10/23/2023 09:58 /yunior/ EUGENIE SALVADOR LPN Licensed Practical Nurse 10/28/2023 15:16 /yunior/ VESTA BLISS MD PRIMARY CARE PHYSICIAN VESTA BLISS [place] [facility] [place] [facility] October 22, 2023 12:52 PM ADMINISTRATIVE NOT E: LOCAL TITLE: ADMINISTRATIVE NOTE STANDARD TITLE: ADMINISTRATIVE NOTE DATE OF NOTE: OCTOBER 22, 2023@12:52 ENTRY DATE: OCTOBER 22, 2023@12:53:02 AUTHOR: ALMA ROSA MEZA EXP COSIGNER: URGENCY: STATUS: COMPLETED ADMINISTRATIVE NOTE Has ADDENDA OCC recv'd auth request from Chen @ [facility]. [place] has an appt scheduled 10/24/23 @ 11:15am in [place] for photo therapy, continuation of care. If approved, a new consult is needed. Thank you. /es/ ALMA ROSA MEZA Signed: 10/22/2023 12:54 Receipt Acknowledged By: 10/23/2023 09:58 /es/ EUGENIE SALVADOR LPN Licensed Practical Nurse 10/28/2023 15:16 /yunior/ VESTA BLISS MD PRIMARY CARE PHYSICIAN 10/28/2023 ADDENDUM STATUS: COMPLETED Please place a dermatology consultation for continuity of care office for my signature /yunior/ VESTA BLISS MD PRIMARY CARE PHYSICIAN Signed: 10/28/2023 15:16 Receipt Acknowledged By: 10/29/2023 07:48 /yunior/ BREANNA BAKER RN-BC REGISTERED NURSE 10/29/2023 ADDENDUM STATUS: COMPLETED Placed CC dermatology continuation of care consult as requested and held for provider review. /yunior/ BREANNA BAKER RN-BC REGISTERED NURSE Signed: 10/29/2023 08:09 [facility]
--- OUTSIDE RECORDS SUMMARY | 2024-06-29 18:58 | XMS_ITS | Encounter Summary ---
Author Name [place] Address [address] [place] [address] Care Team Providers Care County Sheriff Name Role Phone ABDIRAHMAN LAKE Primary Care [...] BASIC FAMIL Y Jun 24, 2009 [id number] [phone] ABHILASH GARAY PATIENT ANTHEM BCBS [place] FEP PREFERRED PROVIDER ORGANIZAT ION (PPO) FEP BASIC FAM Jun 24, 2009 112 [id number] [phone] ABHILASH GARAY PATIENT ANTHEM BCBS [place] F[place] PREFERRED PROVIDER ORGANIZAT ION (PPO) FEP BASIC FAM Jun 24, 2009 112 [id number] [phone] ABHILASH GARAY PATIENT [place] PREFERRED PROVIDER ORGANIZAT ION (PPO) FEP BASIC FAM Jun 24, 2009 112 [id number] [phone] ABHILASH GARAY PATIENT [place] F[place] PREFERRED PROVIDER ORGANIZAT ION (PPO) FEP BASIC FAM Jun 24, 2009 112 [id number] [phone] ABHILASH GARAY PATIENT BCBS [place] FEP PREFERRED PROVIDER ORGANIZAT ION (PPO) BASIC FAMIL Y Jun 24, 2009 [id number] ABHILASH GARAY PATIENT [place] PREFERRED PROVIDER ORGANIZAT ION (PPO) BASIC FAMIL Y Jun 24, 2009 [id number] ABHILASH GARAY PATIENT [place] F[place] PREFERRED PROVIDER ORGANIZAT ION (PPO) BASIC FAMIL Y Jun 24, 2009 [id number] ABHILASH GARAY PATIENT [place] F[place] DENTAL DENTAL INSURANCE BASIC Jul 12, 2009 DENTAL [id number] ABHILASH GARAY PATIENT [place] FEP PREFERRED PROVIDER ORGANIZAT ION (PPO) BASIC FAMIL Y Jun 24, 2009 [id number] ABHILASH GARAY PATIENT [place] FEP ([id number]) PRESCRIPT ION FEPRX Jun 24, 2009 [id number] [phone] ABHILASH GARAY PATIENT [place] FEP BCBS PRESCRIPT ION CAREM ARK FEPRX PLAN Nov 21, 2021 [id number] ABHILASH GARAY PATIENT [place] FEPRX PLAN PRESCRIPT ION CAREM ARK FEPRX Nov 21, 2021 [id number] ABHILASH GARAY PATIENT [place]-F EP BCBS PRESCRIPT ION FEP CAREM ARK Nov 21, 2021 [id number] ABHILASH GARAY PATIENT [place]-F EP BCBS PRESCRIPT ION FEP Jun 23, 2010 [id number] ABHILASH GARAY PATIENT MEDICARE (WN) MEDICARE () PART A Feb 22, 2020 PART A [id number] [phone] ABHILASH GARAY PATIENT MEDICARE ([facility]) MEDICARE () PART A Feb 22, 2020 PART A [id number] ABHILASH GARAY PATIENT MEDICARE (WNR) MEDICARE (M) PART A Feb 22, 2020 PART A [id number] ABHILASH GARAY PATIENT MEDICARE (WNR) MEDICARE (M) PART A Feb 22, 2020 PART A [id number] ABHILASH GARAY PATIENT MEDICARE (WNR) MEDICARE (M) PART A Feb 22, 2020 PART A [id number] [phone] ABHILASH GARAY PATIENT Selected Encounter This section includes the information on record at [place] for the Encounter. Date/Time Encounter Type Encounter Description Reason Pro vider Source Oct 10, 2023 12:00 PM Outpatient Encounter EVENT (HISTORICAL) IHE Encounter Template Text not used by [place] Plan of Treatment: Future Appointments (+ 6 months) and Future Tests (+/- 45 days) The Plan of Treatment section includes future care activities for the patient from all [place] treatmentfacilities. This section includes future appointments and [...] 13, 2023 11:00 AM AMBULATORY - MEDICINE [facility] [place] [facility] Oct 16, 2023 01:00 PM AMBULATORY - [place]ICINE [place] [facility] Oct 20, 2023 11:00 AM AMBULATORY - [place]ICINE [place] [facility] October 23, 2023 01:00 PM AMBULATORY - MEDICINE [place] [facility] October 27, 2023 11:00 AM AMBULATORY - MEDICINE [place] [facility] November 03, 2023 11:00 AM AMBULATORY - MEDICINE [place] [facility] November 03, 2023 01:00 PM AMBULATORY - MEDICINE [facility] [place] [facility] November 06, 2023 01:00 PM AMBULATORY - MEDICINE [place] [facility] November 06, 2023 02:00 PM AMBULATORY - MEDICINE [place] [facility] [place] [facility] November 10, 2023 11:00 AM AMBULATORY - MEDICINE [facility] [place] [facility] November 13, 2023 10:30 AM AMBULATORY - MEDICINE [facility] [place] [facility] November 18, 2023 11:00 AM AMBULATORY - MEDICINE [facility] [place] [facility] November 20, 2023 10:30 AM AMBULATORY - MEDICINE [facility] [place] [facility] November 20, 2023 01:00 PM AMBULATORY - MEDICINE [place] [facility] [place] [facility] Nov 27, 2023 02:00 PM [facility] Dec 02, 2023 11:00 AM AMBULATORY - MEDICINE [place] [facility] [place] [facility] Dec 02, 2023 02:30 PM AMBULATORY - MEDICINE [facility] [place] [facility] Dec 04, 2023 01:00 PM AMBULATORY - MEDICINE [facility] [place] [facility] Dec 08, 2023 11:00 AM AMBULATORY - MEDICINE [facility] [place] [facility] Dec 11, 2023 01:00 PM AMBULATORY - MEDICINE [place] [facility] [place] [facility] Social History: Smoking Status (Most current) [...] 2023 09:12 AM VA-TOBACCO NEVER USED [place] [facility] Tobacco Use History This section includes a history of the smoking, or tobacco-related health factors, that were collected on or before the date of the Encounter. The data comes from the [place] facility where the Encounter took place. Date/Time Smoking Status/Tobacco Use Comment F darvin Aug 09, 2021 09:20 AM [facility] Encounter Notes: All associated encounter notes This section contains the clinical notes associated to the Encounter. Date/Time Encounter Note(s) Provider Source Oct 10, 2023 12:00 PM NONVA NOTE: LOCAL TITLE: NON-VA OUTPATIENT NOTES STANDARD TITLE: NONVA NOTE DATE OF NOTE: OCT 10, 2023@12:00 ENTRY DATE: OCTOBER 27, 2023@13:08:04 AUTHOR: ADILSON ELY COSIGNER: URGENCY: STATUS: COMPLETED VistA Imaging - Scanned Document SCANNED DOCUMENT SIGNATURE NOT REQUIRED Electronically Filed: 10/27/2023 by: ADILSON PHELPS CNTL WSTRN [facility]
--- OUTSIDE RECORDS SUMMARY | 2024-06-29 18:58 | XMS_ITS | Encounter Summary ---
Author Name [place] Address [address] [place] [address] Care Team Providers Care Dairy Husbandry Worker Name Role Phone ABDIRAHMAN [place]KE Primary [...] BASIC FAMIL Y Jun 24, 2009 112 [id number] [phone] ABHILASH GARAY PATIENT ANTHEM BCBS [place] F[place] PREFERRED PROVIDER ORGANIZAT ION (PPO) FEP BASIC FAM Jun 24, 2009 112 [id number] [phone] ABHILASH GARAY PATIENT ANTHEM [place]BS [place] F[place] PREFERRED PROVIDER ORGANIZAT ION (PPO) FEP BASIC FAM Jun 24, 2009 112 [id number] [phone] ABHILASH GARAY PATIENT [place] PREFERRED PROVIDER ORGANIZAT ION (PPO) FEP BASIC FAM Jun 24, 2009 112 [id number] [phone] ABHILASH GARAY PATIENT [place]BS [place] FEP PREFERRED PROVIDER ORGANIZAT ION (PPO) FEP BASIC FAM Jun 24, 2009 112 [id number] [phone] ABHILASH GARAY PATIENT [place]BS [place] F[place] PREFERRED PROVIDER ORGANIZAT ION (PPO) BASIC FAMIL Y Jun 24, 2009 [id number] ABHILASH GARAY PATIENT [place] PREFERRED PROVIDER ORGANIZAT ION (PPO) BASIC FAMIL Y Jun 24, 2009 [id number] [phone] ABHILASH GARAY PATIENT [place] FEP PREFERRED PROVIDER ORGANIZAT ION (PPO) BASIC FAMIL Y Jun 24, 2009 [id number] ABHILASH GARAY PATIENT [place] DENTAL DENTAL INSURANCE BASIC Jul 12, 2009 DENTAL [id number] ABHILASH GARAY PATIENT [place] F[place] PREFERRED PROVIDER ORGANIZAT ION (PPO) BASIC FAMIL Y Jun 24, 2009 [id number] [phone] ABHILASH GARAY PATIENT [place] FEP ([id number]) PRESCRIPT ION FEPRX Jun 24, 2009 [id number] [phone] ABHILASH GARAY PATIENT [place] FEP BCBS PRESCRIPT ION CAREM ARK FEPRX PLAN Nov 21, 2021 [id number] ABHILASH GARAY PATIENT [place] FEPRX PLAN PRESCRIPT ION CAREM ARK FEPRX Nov 21, 2021 [id number] ABHILASH GARAY PATIENT [place]-F EP BCBS PRESCRIPT ION FEP CAREM ARK Nov 21, 2021 [id number] ABHILASH GARAY PATIENT [place]-F EP BCBS PRESCRIPT ION FEP Jun 23, 2010 [id number] ABHILASH GARAY PATIENT MEDICARE (WN) MEDICARE () PART A Feb 22, 2020 PART A [id number] [phone] ABHILASH GARAY PATIENT MEDICARE ([facility]) MEDICARE () PART A Feb 22, 2020 PART A [id number] NV71 [phone] ABHILASH GARAY PATIENT MEDICARE (WNR) MEDICARE (M) PART A Feb 22, 2020 PART A [id number] [id number] [phone] ABHILASH GARAY PATIENT MEDICARE (WNR) MEDICARE (M) PART A Feb 22, 2020 PART A [id number] [phone] ABHILASH GARAY PATIENT MEDICARE (WNR) MEDICARE (M) PART A Feb 22, 2020 PART A [id number] ABHILASH GARAY PATIENT Selected Encounter This section includes the information on record at [place] for the Encounter. Date/Time Encounter Type Encounter Description Reason Pro vider Source Oct 13, 2023 12:00 AM Outpatient Encounter EVENT (HISTORICAL) [...] 16, 2023 01:00 PM AMBULATORY - MEDICINE [facility] [place] [place] [facility] Oct 20, 2023 11:00 AM AMBULATORY - MEDICINE [place] C [place] [facility] October 23, 2023 01:00 PM AMBULATORY - MEDICINE [place] C [place] [facility] October 27, 2023 11:00 AM AMBULATORY - MEDICINE [place] C [place] [facility] November 03, 2023 11:00 AM AMBULATORY - MEDICINE [place] C [place] [facility] November 03, 2023 01:00 PM AMBULATORY - MEDICINE [place] C [place] [facility] November 06, 2023 01:00 PM AMBULATORY - MEDICINE [facility] [place] [facility] November 06, 2023 02:00 PM AMBULATORY - MEDICINE [place] C [place] [facility] November 10, 2023 11:00 AM AMBULATORY - MEDICINE [place] C [place] [facility] November 13, 2023 10:30 AM AMBULATORY - MEDICINE [place] [facility] [place] [facility] November 18, 2023 11:00 AM AMBULATORY - MEDICINE [place] [facility] [place] [facility] November 20, 2023 10:30 AM AMBULATORY - MEDICINE [place] [facility] [place] [place] [facility] November 20, 2023 01:00 PM AMBULATORY - MEDICINE [place] [facility] [place] [place] [facility] Nov 27, 2023 02:00 PM [facility] Dec 02, 2023 11:00 AM AMBULATORY - MEDICINE [place] [facility] [place] [facility] Dec 02, 2023 02:30 PM AMBULATORY - MEDICINE [place] [facility] [place] [facility] Dec 04, 2023 01:00 PM AMBULATORY - MEDICINE [place] [facility] [place] [facility] Dec 08, 2023 11:00 AM AMBULATORY - MEDICINE [place] [facility] [place] [facility] Dec 11, 2023 01:00 PM AMBULATORY - MEDICINE [place] [facility] [place] [facility] Dec 15, 2023 11:00 AM AMBULATORY - MEDICINE [place] [facility] [place] [facility] Social History: Smoking Status [...] 08, 2023 09:12 AM VA-TOBACCO NEVER USED [place] [facility] Tobacco Use History This section includes a history of the smoking, or tobacco-related health factors, that were collected on or before the date of the Encounter. The data comes from the [place] facility where the Encounter took place. Date/Time Smoking Status/Tobacco Use Comment F darvin Aug 09, 2021 09:20 AM [facility] Encounter Notes: All associated encounter notes This section contains the clinical notes associated to the Encounter. Date/Time Encounter Note(s) Provider Source Oct 13, 2023 12:00 AM NURSING ADMINISTRATIVE NOTE: LOCAL TITLE: NON-VA PRESCRIPTION STANDARD TITLE: NURSING ADMINISTRATIVE NOTE DATE OF NOTE: OCT 13, 2023 ENTRY DATE: OCTOBER 27, 2023@10:07:23 AUTHOR: DAHIANA MCMILLAN EXP COSIGNER: URGENCY: STATUS: COMPLETED VistA Imaging - Scanned Document SCANNED DOCUMENT SIGNATURE NOT REQUIRED Electronically Filed: 10/27/2023 by: DAHIANA JANG [place] CNTRL [facility]
--- OUTSIDE RECORDS SUMMARY | 2024-06-29 18:59 | XMS_ITS | Encounter Summary ---
Author Name [facility] [place] Address [address] [place] [address] Care Team Providers Care Hardwood Floor Layer Name Role Phone ABDIRAHMAN LAKE Primary Care [...] BASIC FAMIL Y Jun 24, 2009 112 [id number] [phone] ABHIALSH GARAY PATIENT ANTHEM BCBS [place] FEP PREFERRED PROVIDER ORGANIZAT ION (PPO) FEP BASIC FAM Jun 24, 2009 112 [id number] [phone] ABHILASH GARAY PATIENT ANTHEM BCBS [place] FEP PREFERRED PROVIDER ORGANIZAT ION (PPO) FEP BASIC FAM Jun 24, 2009 112 [id number] [phone] ABHILASH GARAY PATIENT [place]THE[place] PREFERRED PROVIDER ORGANIZAT ION (PPO) FEP BASIC FAM Jun 24, 2009 112 [id number] [phone] ABHILASH GARAY PATIENT [place] FEP PREFERRED PROVIDER ORGANIZAT ION (PPO) FEP BASIC FAM Jun 24, 2009 112 [id number] [phone] ABHILASH GARAY PATIENT [place]BS [place] F[place] PREFERRED PROVIDER ORGANIZAT ION (PPO) BASIC FAMIL Y Jun 24, 2009 [id number] ABHILASH GARAY PATIENT [place] F[place] PREFERRED PROVIDER ORGANIZAT ION (PPO) BASIC FAMIL Y Jun 24, 2009 [id number] ABHILASH GARAY PATIENT [place] F[place] PREFERRED PROVIDER ORGANIZAT ION (PPO) BASIC FAMIL Y Jun 24, 2009 [id number] ABHILASH GARAY PATIENT [place] DENTAL DENTAL INSURANCE BASIC Jul 12, 2009 DENTAL [id number] [phone] ABHILASH GARAY PATIENT [place] PREFERRED PROVIDER ORGANIZAT ION (PPO) BASIC FAMIL Y Jun 24, 2009 [id number] ABHILASH GARAY PATIENT [place] FEP ([id number]) PRESCRIPT ION FEPRX Jun 24, 2009 [id number] [phone] ABHILASH GARAY PATIENT [place] FEP BCBS PRESCRIPT ION CAREM ARK FEPRX PLAN Nov 21, 2021 [id number] ABHILASH GARAY PATIENT [place] FEPRX PLAN PRESCRIPT ION CAREM ARK FEPRX Nov 21, 2021 [id number] ABHILASH GARAY PATIENT [place]-F EP BCBS PRESCRIPT ION FEP CAREM ARK Nov 21, 2021 [id number] ABHILASH GARAY PATIENT [place]-F EP BCBS PRESCRIPT ION FEP Jun 23, 2010 [id number] ABHILASH GARAY PATIENT MEDICARE (WN) MEDICARE () PART A Feb 22, 2020 PART A [id number] [id number] [phone] ABHILASH GARAY PATIENT MEDICARE ([facility]) MEDICARE (M) PART A Feb 22, 2020 PART A [id number] NV71 [phone] ABHILASH GARAY PATIENT MEDICARE (WNR) MEDICARE (M) PART A Feb 22, 2020 PART A [id number] [id number] [phone] ABHILASH GARAY PATIENT MEDICARE (WNR) MEDICARE (M) PART A Feb 22, 2020 PART A [id number] ABHILASH GARAY PATIENT MEDICARE (WNR) MEDICARE (M) PART A Feb 22, 2020 PART A [id number] [id number] [phone] ABHILASH GARAY PATIENT Selected Encounter This section includes the information on record at [place] for the Encounter. Date/Time Encounter Type Encounter Description Reason Provider Source Sep 17, 2023 12:14 PM Outpatient Encounter PROSTHETICS/ORTHOTI CS [place] [facility] IHFran Encounter Template Text not used by [place] Plan of Treatment: Future Appointments (+ 6 months) and Future Tests (+/- 45 days) The Plan of Treatment section includes [facility] [place] [facility] This section includes future appointments [...] 29, 2023 11:00 AM AMBULATORY - MEDICINE [facility] [place] [place] [facility] Oct 02, 2023 01:00 PM AMBULATORY - MEDICINE [facility] [place] [facility] Oct 06, 2023 11:00 AM AMBULATORY - MEDICINE [place] C [place] [facility] Oct 06, 2023 12:40 PM AMBULATORY - MEDICINE [facility] [place] [facility] Oct 09, 2023 01:00 PM AMBULATORY - MEDICINE [place] C [place] [facility] Oct 13, 2023 11:00 AM AMBULATORY - MEDICINE [place] C [place] [facility] Oct 16, 2023 01:00 PM AMBULATORY - MEDICINE [facility] [place] [facility] Oct 20, 2023 11:00 AM AMBULATORY - MEDICINE [facility] [place] [place] [facility] October 23, 2023 01:00 PM AMBULATORY - MEDICINE [facility] [place] [place] [facility] October 27, 2023 11:00 AM AMBULATORY - MEDICINE [facility] [place] [place] [facility] November 03, 2023 11:00 AM AMBULATORY - MEDICINE [facility] [place] [facility] November 03, 2023 01:00 PM AMBULATORY - MEDICINE [facility] [place] [place] [facility] November 06, 2023 01:00 PM AMBULATORY - MEDICINE [facility] [place] [place] [facility] November 06, 2023 02:00 PM AMBULATORY - MEDICINE [facility] [place] [place] [facility] November 10, 2023 11:00 AM AMBULATORY - MEDICINE [facility] [place] [place] [facility] November 13, 2023 10:30 AM AMBULATORY - MEDICINE [place] [facility] [place] [facility] November 18, 2023 11:00 AM AMBULATORY - MEDICINE [place] C [place] [facility] November 20, 2023 10:30 AM AMBULATORY - MEDICINE [place] [facility] [place] [facility] November 20, 2023 01:00 PM AMBULATORY - MEDICINE [place] C [place] [facility] Nov 27, 2023 02:00 PM AMBULATORY - MEDICINE [facility] Social History: Smoking Status (Most [...] 2023 09:12 AM VA-TOBACCO [facility] Tobacco Use History This section includes a history of the smoking, or tobacco-related health factors, that were collected on or before the date of the Encounter. The data comes from the [place] facility where the Encounter took place. Date/Time Smoking Status/Tobacco Use Comment F acjaved Aug 09, 2021 09:20 AM [facility]CO [facility]
--- OUTSIDE RECORDS SUMMARY | 2024-06-29 18:59 | XMS_ITS | Encounter Summary ---
Author Name [facility] [place] Address [address] [place] [address] Care Team Providers Care Scientific Informatics Analyst Name Role Phone ABDIRAHMAN LAKE Primary [...] BASIC FAMIL Y Jun 24, 2009 112 [id number] [phone] ABHILASH GARAY PATIENT ANTHEM BCBS [place] FEP PREFERRED PROVIDER ORGANIZAT ION (PPO) FEP BASIC FAM Jun 24, 2009 112 [id number] [phone] ABHILASH GARAY PATIENT ANTHEM BCBS [place] FEP PREFERRED PROVIDER ORGANIZAT ION (PPO) FEP BASIC FAM Jun 24, 2009 112 [id number] [phone] ABHILASH GARAY PATIENT ANTHEM BCBS [place] FEP PREFERRED PROVIDER ORGANIZAT ION (PPO) FEP BASIC FAM Jun 24, 2009 112 [id number] [phone] ABHILASH GARAY PATIENT [place] FEP PREFERRED PROVIDER ORGANIZAT ION (PPO) FEP BASIC FAM Jun 24, 2009 112 [id number] [phone] ABHILASH GARAY PATIENT BCBS [place] FEP PREFERRED PROVIDER ORGANIZAT ION (PPO) BASIC FAMIL Y Jun 24, 2009 112 [id number] ABHILASH GARAY PATIENT [place] PREFERRED PROVIDER ORGANIZAT ION (PPO) BASIC FAMIL Y Jun 24, 2009 [id number] ABHILASH GARAY PATIENT [place] FEP PREFERRED PROVIDER ORGANIZAT ION (PPO) BASIC FAMIL Y Jun 24, 2009 112 [id number] [phone] ABHILASH GARAY PATIENT [place] FEP DENTAL DENTAL INSURANCE BASIC Jul 12, 2009 DENTAL [id number] [phone] ABHILASH GARAY PATIENT [place] F[place] PREFERRED PROVIDER ORGANIZAT ION (PPO) BASIC FAMIL Y Jun 24, 2009 112 [id number] [phone] ABHILASH GARAY PATIENT [place] FEP ([id number]) PRESCRIPT ION FEPRX Jun 24, 2009 [id number] [phone] ABHILASH GARAY PATIENT [place] FEP BCBS PRESCRIPT ION CAREM ARK FEPRX PLAN Nov 21, 2021 [id number] ABHILASH GARAY PATIENT [place] FEPRX PLAN PRESCRIPT ION CAREM ARK FEPRX Nov 21, 2021 [id number] ABHILASH GARAY PATIENT [place]-F EP BCBS PRESCRIPT ION FEP CAREM ARK Nov 21, 2021 [id number] ABHILASH GARAY PATIENT [place]-F EP BCBS PRESCRIPT ION FEP Jun 23, 2010 [id number] ABHILASH GARAY PATIENT MEDICARE (WN) MEDICARE () PART A Feb 22, 2020 PART A [id number] ABHILASH GARAY PATIENT MEDICARE ([facility]) MEDICARE () PART A Feb 22, 2020 PART A [id number] [phone] ABHILASH GARAY PATIENT MEDICARE (WNR) MEDICARE (M) PART A Feb 22, 2020 PART A [id number] [phone] ABHILASH GARAY PATIENT MEDICARE (WNR) MEDICARE (M) PART A Feb 22, 2020 PART A [id number] ABHILASH GARAY PATIENT MEDICARE (WNR) MEDICARE (M) PART A Feb 22, 2020 PART A [id number] ABHILASH GARAY PATIENT Selected Encounter This section includes the information on record at [place] for the Encounter. Date/Time Encounter Type Encounter Description Reason Pro vider Source October 31, 2023 10:07 AM Outpatient Encounter COUNTS INCLUDE 234 BEDS AT THE [facility] TREATMENT IHE Encounter Template Text not used by [place] Plan of Treatment: Future Appointments (+ 6 [...] 03, 2023 11:00 AM AMBULATORY - MEDICINE [facility] [place] [facility] November 03, 2023 01:00 PM AMBULATORY - MEDICINE [place] [facility] November 06, 2023 01:00 PM AMBULATORY - MEDICINE [place] [facility] November 06, 2023 02:00 PM AMBULATORY - MEDICINE [place] [facility] November 10, 2023 11:00 AM AMBULATORY - MEDICINE [place] [facility] November 13, 2023 10:30 AM AMBULATORY - MEDICINE [place] [facility] November 18, 2023 11:00 AM AMBULATORY - MEDICINE [place] [facility] November 20, 2023 10:30 AM AMBULATORY - MEDICINE [place] [facility] November 20, 2023 01:00 PM AMBULATORY [place]ICINE [place] [facility] Nov 27, 2023 02:00 PM [place]ORY [place]IC[place] Dec 02, 2023 11:00 AM AMBULATORY - MEDICINE [place] [facility] Dec 02, 2023 02:30 PM AMBULATORY - MEDICINE [place] [facility] Dec 04, 2023 01:00 PM AMBULATORY - MEDICINE [place] [facility] Dec 08, 2023 11:00 AM AMBULATORY - MEDICINE [place] [facility] Dec 11, 2023 01:00 PM AMBULATORY - MEDICINE [place] [facility] Dec 15, 2023 11:00 AM AMBULATORY - MEDICINE [place] [facility] Dec 15, 2023 03:00 PM AMBULATORY - MEDICINE [place] [facility] Dec 17, 2023 02:00 PM AMBULATORY - [place] Dec 18, 2023 01:00 PM AMBULATORY - MEDICINE [place] [facility] Dec 22, 2023 10:30 AM AMBULATORY [facility] MED[facility] Social History: Smoking Status [...] 09:12 AM [facility] Tobacco Use History This section includes a history of the smoking, or tobacco-related health factors, that were collected on or before the date of the Encounter. The data comes from the [place] facility where the Encounter took place. Date/Time Smoking Status/Tobacco Use Comment Gilberto boston Aug 09, 2021 09:20 AM VA-TOBACCO NEVER USED [place] [facility] Encounter Notes: All associated encounter notes This section contains the clinical notes associated to the Encounter. Date/Time Encounter Note(s) Provider Source October 31, 2023 10:07 AM TELEPHONE ENCOUNTE R NOTE: LOCAL TITLE: TELEPHONE NOTE/SPECIALTY CLINIC STANDARD TITLE: TELEPHONE ENCOUNTER NOTE DATE OF NOTE: OCTOBER 31, 2023@10:07 ENTRY DATE: OCTOBER 31, 2023@10:07:54 AUTHOR: CATHIE CULLEN COSIGNER: URGENCY: STATUS: COMPLETED Call attempt was made to remind vet that they have a FTF appt with the [facility] on 11/03/2023 at 1300. No answer, lvm. Location was confirmed. /yunior/ CATHIE CULLEN ADVANCED BUS CLEANER Signed: 10/31/2023 10:08 CATHIE CULLEN [place] [facility]
--- OUTSIDE RECORDS SUMMARY | 2024-06-29 18:59 | XMS_ITS | Encounter Summary ---
Author Name [facility] [place] Address [address] [place] [address] Care Team Providers Care Plug And Mold Finisher Name Role Phone ABDIRAHMAN LAKE Primary Care [...] BASIC FAMIL Y Jun 24, 2009 [id number] [phone] ABHILASH GARAY PATIENT ANTHEM BCBS [place] F[place] PREFERRED PROVIDER ORGANIZAT ION (PPO) FEP BASIC FAM Jun 24, 2009 112 [id number] [phone] ABHILASH GARAY PATIENT ANTHEM BCBS [place] FEP PREFERRED PROVIDER ORGANIZAT ION (PPO) FEP BASIC FAM Jun 24, 2009 112 [id number] [phone] ABHILASH GARAY PATIENT [place] PREFERRED PROVIDER ORGANIZAT ION (PPO) FEP BASIC FAM Jun 24, 2009 112 [id number] [phone] ABHILASH GARAY PATIENT [place] PREFERRED PROVIDER ORGANIZAT ION (PPO) FEP BASIC FAM Jun 24, 2009 112 [id number] [phone] RUBI GARAYNETH PATIENT BCBS [place] FEP PREFERRED PROVIDER ORGANIZAT ION (PPO) BASIC FAMIL Y Jun 24, 2009 112 [id number] [phone] RUBI GARAYNETH PATIENT [place] F[place] PREFERRED PROVIDER ORGANIZAT ION (PPO) BASIC FAMIL Y Jun 24, 2009 112 [id number] RUBI GARAYNETH PATIENT [place] FEP PREFERRED PROVIDER ORGANIZAT ION (PPO) BASIC FAMIL Y Jun 24, 2009 [id number] RUBI GARAYNETH PATIENT [place] DENTAL DENTAL INSURANCE BASIC Jul 12, 2009 DENTAL [id number] DEJAHDANIKARUBI ACEVESNETH PATIENT [place] FEP PREFERRED PROVIDER ORGANIZAT ION (PPO) BASIC FAMIL Y Jun 24, 2009 [id number] ABHILASH GARAY PATIENT [place] FEP ([id number]) PRESCRIPT ION FEPRX Jun 24, 2009 [id number] [phone] ABHILASH GARAY PATIENT [place] FEP BCBS PRESCRIPT ION CAREM ARK FEPRX PLAN Nov 21, 2021 [id number] ABHILASH GARAY PATIENT [place] FEPRX PLAN PRESCRIPT ION CAREM ARK FEPRX Nov 21, 2021 [id number] ABHILASH GARAY PATIENT [place]-F EP BCBS PRESCRIPT ION FEP CAREM ARK Nov 21, 2021 [id number] ABHILASH GARAY PATIENT [place]-F EP BCBS PRESCRIPT ION FEP Jun 23, 2010 [id number] RUBI GARAYNETH PATIENT MEDICARE ([facility]) MEDICARE () PART A Feb 22, 2020 PART A [id number] [phone] ABHILASH GARAY PATIENT MEDICARE (WNR) MEDICARE (M) PART A Feb 22, 2020 PART A [id number] NV71 [id number] ABHILASH GARAY PATIENT MEDICARE (WNR) MEDICARE (M) PART A Feb 22, 2020 PART A [id number] [id number] [id number] ABHILASH GARAY PATIENT MEDICARE (WNR) MEDICARE (M) PART A Feb 22, 2020 PART A [id number] [id number] [phone] ABHILASH GARAY PATIENT MEDICARE (WNR) MEDICARE (M) PART A Feb 22, 2020 PART A [id number] [phone] ABHILASH GARAY PATIENT Selected Encounter This section includes the information on record at [place] for the Encounter. Date/Time Encounter Type Encounter Description Reason Pro vider Source November 12, 2023 03:06 PM Outpatient Encounter ADMIN PAT ACTIVTIES (MASNONCT) [...] Appointment Type Appointme nt Facility Name November 13, 2023 10:30 AM AM[place]ULATORY [place]ICINE [place] [facility] November 18, 2023 11:00 AM AMBULATORY - MEDICINE [place] [facility] November 20, 2023 10:30 AM AMBULATORY - MEDICINE [place] [facility] November 20, 2023 01:00 PM AMBULATORY - MEDICINE [place] [facility] Nov 27, 2023 02:00 PM [facility] Dec 02, 2023 11:00 AM AMBULATORY - MEDICINE [place] [facility] Dec 02, 2023 02:30 PM AMBULATORY - MEDICINE [place] [facility] Dec 04, 2023 01:00 PM AMBULATORY - MEDICINE [place] [facility] Dec 08, 2023 11:00 AM AMBULATORY - MEDICINE [place] [facility] Dec 11, 2023 01:00 PM AMBULATORY - MEDICINE [place] [facility] Dec 15, 2023 11:00 AM AMBULATORY - MEDICINE [place] [facility] Dec 15, 2023 03:00 PM AMBULATORY - MEDICINE [place] [facility] Dec 17, 2023 02:00 PM AMBULATORY - [place] Dec 18, 2023 01:00 PM AMBULATORY - MEDICINE [place] [facility] Dec 22, 2023 10:30 AM AMBULATORY - MEDICINE [facility] Dec 31, 2023 08:15 PM AMBULATORY - MEDICINE [place] [facility] Jan 01, 2024 01:00 PM AMBULATORY - MEDICINE [place] [facility] Jan 02, 2024 09:30 AM AMBULATORY - RE[place]AB [place] Jan 07, 2024 03:00 PM AMBULATORY - RE[place]AB [place] Jan 08, 2024 01:00 PM AM[place]ULATORY [place] [place] [facility] Social History: Smoking Status (Most [...] 08, 2023 09:12 AM VA-TOBACCO NEVER USED [facility] Tobacco Use History This section includes a history of the smoking, or tobacco-related health factors, that were collected on or before the date of the Encounter. The data comes from the [place] facility where the Encounter took place. Date/Time Smoking Status/Tobacco Use Comment F darvin Aug 09, 2021 09:20 AM VA[place]TO[place]ACCO [facility] [place] [facility] Encounter Notes: All associated encounter notes This section contains the clinical notes associated to the Encounter. Date/Time Encounter Note(s) Provider Source Dec 04, 2023 09:32 PM ADDENDUM: LOCAL TITLE: Addendum STANDARD TITLE: ADDENDUM DATE OF NOTE: DEC 04, 2023@21:32:58 ENTRY DATE: DEC 04, 2023@21:32:59 AUTHOR: RADHIKA GOMEZIGNER: URGENCY: STATUS: COMPLETED Author notes that has been receiving medication orders for potassium medication from [place] PCPs since 2010 ordered through [place] pharmacy services. /BREANNA Gillespie RN-RONI REGISTERED NURSE Signed: 12/04/2023 21:33 Receipt Acknowledged By: 12/17/2023 16:07 /yunior/ VESTA BLISS MD PRIMARY CARE PHYSICIAN === --- Original Document --- 11/12/23 V1 PHARMACY CUSTOMER CARE MEDICATION RENEWAL: Date: October Division: [facility] referred by Pharmacy Call Center for medication renewal: Non-controlled/maintenanc e medication Medications requested: Rx #: [id number] POTASSIUM CITRATE 10MEQ SA TAB Defer to primary care provider To be mailed . Please review and renew if appropriate. *This note was generated by [facility] Pharmacy Customer Care. If you have any questions or need assistance, do not contact this author. Please refer all questions to your local, on-site pharmacy departments. /yunior/ STEVEN DACOSTA CPhT Case Advocate, [place]/Pharmacy Customer Care Signed: 11/12/2023 15:07 Receipt Acknowledged By: 11/13/2023 08:13 /yunior/ BREANNA BAKER RN-RONI REGISTERED NURSE 12/02/2023 12:58 /yunior/ VESTA BLISS MD PRIMARY CARE PHYSICIAN 11/26/2023 ADDENDUM STATUS: COMPLETED 2nd contact for unresolved renewal request Alerting additional provider: Patient contacted pharmacy call center again regarding renewal status of: [id number] POTASSIUM CITRATE 10MEQ SA TAB [facility] can be reached at to discuss if needed. Please review and renew if appropriate. /yunior/ VINOD KAPOOR CPhT Case Advocate, [place]/Pharmacy Customer Care Signed: 11/26/2023 10:33 Receipt Acknowledged By: 11/26/2023 10:47 /es/ JEAN CLAUDE MENDEZ CERTIFIED NURSE PRACTITIONER 12/02/2023 ADDENDUM STATUS: COMPLETED I think I already responded to this message. Potassium citrate is for kidney stones prevention and usually eats prescribed by urologist or application dba. Please get the prescriptions from the prescriber physician.. Thank mandy /oriana BLISS MD PRIMARY CARE PHYSICIAN Signed: 12/02/2023 12:59 Receipt Acknowledged By: 12/04/2023 21:31 /yunior/ BREANNA BAKER RN-BC REGISTERED NURSE 12/04/2023 ADDENDUM STATUS: COMPLETED Author notes 25 day supply ordered by a spopc provider with one refill. /BREANNA Gillespie RN-RONI REGISTERED NURSE Signed: 12/04/2023 21:35 RADHIKA GOMEZ CNTRL [facility] Dec 02, 2023 12:58 PM ADDENDUM: LOCAL TITLE: Addendum STANDARD TITLE: ADDENDUM DATE OF NOTE: DEC 02, 2023@12:58:49 ENTRY DATE: DEC 02, 2023@12:58:49 AUTHOR: VESTA BLISS EXP COSIGNER: URGENCY: STATUS: COMPLETED I think I already responded to this message. Potassium citrate is for kidney stones prevention and usually eats prescribed by urologist or application dba. Please get the prescriptions from the prescriber physician.. Mayco galvan /oriana BLISS MD PRIMARY CARE PHYSICIAN Signed: 12/02/2023 12:59 Receipt Acknowledged By: 12/04/2023 21:31 /BREANNA Gillespie RN-RONI REGISTERED NURSE === --- Original Document --- 11/12/23 V1 PHARMACY CUSTOMER CARE MEDICATION RENEWAL: Date: October Division: [facility] referred by Pharmacy Call Center for medication renewal: Non-controlled/maintenanc e medication Medications requested: Rx #: [id number] POTASSIUM CITRATE 10MEQ SA TAB Defer to primary care provider To be mailed . Please review and renew if appropriate. *This note was generated by [facility] Customer [facility]. If you have any questions or need assistance, do not contact this author. Please refer all questions to your local, on-site pharmacy departments. /yunior/ STEVEN DACOSTA CPhT Case Advocate, [place]/Pharmacy Customer Care Signed: 11/12/2023 15:07 Receipt Acknowledged By: 11/13/2023 08:13 /es/ STEF BAKERN RN-BC REGISTERED NURSE 12/02/2023 12:58 /es/ VESTA BLISS MD PRIMARY CARE PHYSICIAN 11/26/2023 ADDENDUM STATUS: COMPLETED 2nd contact for unresolved renewal request Alerting additional provider: Patient contacted pharmacy call center again regarding renewal status of: [id number] POTASSIUM CITRATE 10MEQ SA TAB The can be reached at to discuss if needed. Please review and renew if appropriate. /yunior/ VINOD KAPOOR CPhT Case Advocate, [place]/Pharmacy Customer Care Signed: 11/26/2023 10:33 Receipt Acknowledged By: 11/26/2023 10:47 /es/ ABDIRAHMAN LAKE APRN-C CERTIFIED NURSE PRACTITIONER VESTA BLISS [place] [facility] Nov 26, 2023 10:30 AM ADDENDUM: LOCAL TITLE: Addendum STANDARD TITLE: ADDENDUM DATE OF NOTE: NOV 26, 2023@10:30:23 ENTRY DATE: NOV 26, 2023@10:30:24 AUTHOR: VINOD KAPOOR EXP COSIGNER: URGENCY: STATUS: COMPLETED 2nd contact for unresolved renewal request Alerting additional provider: Patient contacted pharmacy call center again regarding renewal status of: [id number] POTASSIUM CITRATE 10MEQ SA TAB [facility] can be reached at to discuss if needed. Please review and renew if appropriate. /oriana KAPOOR CPhT Case Advocate, [place]/Pharmacy Customer Care Signed: 11/26/2023 10:33 Receipt Acknowledged By: 11/26/2023 10:47 /es/ JEAN CLAUDE MENDEZ CERTIFIED NURSE PRACTITIONER === --- Original Document --- 11/12/23 V1 PHARMACY CUSTOMER CARE MEDICATION RENEWAL: Date: October Division: [facility] referred by Pharmacy Call Center for medication renewal: Non-controlled/maintenanc e medication Medications requested: Rx #: [id number] POTASSIUM CITRATE 10MEQ SA TAB Defer to primary care provider To be mailed . Please review and renew if appropriate. *This note was generated by [facility] Pharmacy Customer Care. If you have any questions or need assistance, do not contact this author. Please refer all questions to your local, on-site pharmacy departments. /yunior/ STEVEN DACOSTA [facility] Case Advocate, [place]/Pharmacy Customer Care Signed: 11/12/2023 15:07 Receipt Acknowledged By: 11/13/2023 08:13 /es/ STEF BAKERN RN-BC REGISTERED NURSE * AWAITING SIGNATURE * VESTA BLISS MALINDA J [place] [facility] November 12, 2023 03:06 PM PHARMACY NOTE: LOCAL TITLE: V1 PHARMACY CUSTOMER CARE MEDICATION RENEWAL STANDARD TITLE: PHARMACY NOTE DATE OF NOTE: NOVEMBER 12, 2023@15:06 ENTRY DATE: NOVEMBER 12, 2023@15:06:58 AUTHOR: STEVEN DACOSTA EXP COSIGNER: URGENCY: STATUS: COMPLETED V1 PHARMACY CUSTOMER CARE MEDICATION RENEWAL Has ADDENDA Date: October Division: [facility] referred by Pharmacy Call Center for medication renewal: Non-controlled/maintenanc e medication Medications requested: Rx #: [id number] POTASSIUM CITRATE 10MEQ SA TAB Defer to primary care provider To be mailed . Please review and renew if appropriate. *This note was generated by [facility] Pharmacy Customer Care. If you have any questions or need assistance, do not contact this author. Please refer all questions to your local, on-site pharmacy departments. /yunior/ STEVEN DACOSTA [facility] Case Advocate, [place]/Pharmacy Customer Care Signed: 11/12/2023 15:07 Receipt Acknowledged By: 11/13/2023 08:13 /yunior/ BREANNA BAKER RN-BC REGISTERED NURSE 12/02/2023 12:58 /oriana BLISS MD PRIMARY CARE PHYSICIAN 11/26/2023 ADDENDUM STATUS: COMPLETED 2nd contact for unresolved renewal request Alerting additional provider: Patient contacted pharmacy call center again regarding renewal status of: [id number] POTASSIUM CITRATE 10MEQ SA TAB The can be reached at to discuss if needed. Please review and renew if appropriate. /yunior/ VINOD KAPOOR CPhT Case Advocate, [place]/Pharmacy Customer Care Signed: 11/26/2023 10:33 Receipt Acknowledged By: 11/26/2023 10:47 /yunior/ JEAN CLAUDE MENDEZ CERTIFIED NURSE PRACTITIONER 12/02/2023 ADDENDUM STATUS: COMPLETED I think I already responded to this message. Potassium citrate is for kidney stones prevention and usually eats prescribed by urologist or application dba. Please get the prescriptions from the prescriber physician.. Thank you /oriana BLISS MD PRIMARY CARE PHYSICIAN Signed: 12/02/2023 12:59 Receipt Acknowledged By: 12/04/2023 21:31 /yunior/ BREANNA BAKER RN-RONI REGISTERED NURSE 12/04/2023 ADDENDUM STATUS: COMPLETED Author notes that has been [place] medication [place] medication from [place] ordered through [place] pharmacy services. /BREANNA Gillespie RN-BC REGISTERED NURSE Signed: 12/04/2023 21:33 Receipt Acknowledged By: * AWAITING SIGNATURE * VESTA BLISS 12/04/2023 ADDENDUM STATUS: COMPLETED Author notes 25 day supply ordered by a [facility] provider with one refill. /BREANNA Gillespie RN-BC REGISTERED NURSE Signed: 12/04/2023 21:35 STEVEN DACOSTA [place] [facility]
--- OUTSIDE RECORDS SUMMARY | 2024-06-29 18:59 | XMS_ITS | Encounter Summary ---
Author Name [facility] [place] Address [address] [place] [address] Care Team Providers Care Java [id number] Application Developer Name Role Phone ABDIRAHMAN LAKE Primary [...] BASIC FAMIL Y Jun 24, 2009 [id number] [phone] ABHILASH GARAY PATIENT ANTHEM BCBS [place] F[place] PREFERRED PROVIDER ORGANIZAT ION (PPO) FEP BASIC FAM Jun 24, 2009 [id number] [phone] ABHILASH GARAY PATIENT ANTHEM BCBS [place] F[place] PREFERRED PROVIDER ORGANIZAT ION (PPO) FEP BASIC FAM Jun 24, 2009 112 [id number] [phone] ABHILASH GARAY PATIENT ANTHEM [place] PREFERRED PROVIDER ORGANIZAT ION (PPO) FEP BASIC FAM Jun 24, 2009 112 [id number] [phone] ABHILASH GARAY PATIENT [place] F[place] PREFERRED PROVIDER ORGANIZAT ION (PPO) FEP BASIC FAM Jun 24, 2009 112 [id number] [phone] ABHILASH GARAY PATIENT BCBS [place] FEP PREFERRED PROVIDER ORGANIZAT ION (PPO) BASIC FAMIL Y Jun 24, 2009 [id number] ABHILASH GARAY PATIENT [place] PREFERRED PROVIDER ORGANIZAT ION (PPO) BASIC FAMIL Y Jun 24, 2009 [id number] ABHILASH GARAY PATIENT [place] FEP PREFERRED PROVIDER ORGANIZAT ION (PPO) BASIC FAMIL Y Jun 24, 2009 [id number] ABHILASH GARAY PATIENT [place] FEP DENTAL DENTAL INSURANCE BASIC Jul 12, 2009 DENTAL [id number] ABHILASH GARAY PATIENT [place] F[place] PREFERRED PROVIDER ORGANIZAT ION (PPO) BASIC FAMIL Y Jun 24, 2009 [id number] ABHILASH GARAY PATIENT [employer] FEP ([id number]) PRESCRIPT ION FEPRX Jun 24, 2009 [id number] [phone] ABHILASH GARAY PATIENT [employer] FEP BCBS PRESCRIPT ION CAREM ARK FEPRX PLAN Nov 21, 2021 [id number] ABHILASH GARAY PATIENT [employer] FEPRX PLAN PRESCRIPT ION CAREM ARK FEPRX Nov 21, 2021 [id number] ABHILASH GARAY PATIENT [employer]-F EP BCBS PRESCRIPT ION FEP CAREM ARK Nov 21, 2021 [id number] ABHILASH GARAY PATIENT [employer]-F EP BCBS PRESCRIPT ION FEP Jun 23, 2010 [id number] ABHILASH GARAY PATIENT MEDICARE (WN) MEDICARE () PART A Feb 22, 2020 PART A [id number] ABHILASH GARAY PATIENT MEDICARE ([facility]) MEDICARE () PART A Feb 22, 2020 PART A [id number] ABHILASH GARAY PATIENT MEDICARE (WNR) MEDICARE (M) PART A Feb 22, 2020 PART A [id number] ABHILASH GARAY PATIENT MEDICARE (WNR) MEDICARE (M) PART A Feb 22, 2020 PART A [id number] ABHILASH GARAY PATIENT MEDICARE (WNR) MEDICARE (M) PART A Feb 22, 2020 PART A [id number] ABHILASH GARAY PATIENT Selected Encounter This section includes the information on [place] at [place] for the Encounter. Date/Time Encounter Type Encounter Description Reason Pro vider Source Oct 17, 2023 12:00 AM Outpatient Encounter COMMUNITY CARE CONSULT IHE Encounter Template Text not used by [place] Plan of Treatment: Future Appointments (+ 6 [...] 20, 2023 11:00 AM AMBULATORY - MEDICINE [facility] [place] [facility] October 23, 2023 01:00 PM AMBULATORY - MEDICINE [facility] [place] [facility] October 27, 2023 11:00 AM AM[place]ULATORY [place]IC[place] [facility] November 03, 2023 11:00 AM AMBULATORY [place]IC[place] [facility] November 03, 2023 01:00 PM AMBULATORY [place] [facility] November 06, 2023 01:00 PM AMBULATORY [place] [facility] November 06, 2023 02:00 PM AMBULATORY - MEDICINE [facility] [place] [facility] November 10, 2023 11:00 AM AMBULATORY [place]INE [place] [facility] November 13, 2023 10:30 AM AM[place]ULATORY [place] [facility] November 18, 2023 11:00 AM AMBULATORY [place]INE [place] [facility] November 20, 2023 10:30 AM AM[facility]ULATORY [facility] [place]INE [place] [facility] November 20, 2023 01:00 PM AM[facility]ULATORY [place]INE [place] [facility] Nov 27, 2023 02:00 PM AMBULATORY - [place]ICINE [place] Dec 02, 2023 11:00 AM AMBULATORY - [place]ICINE [place] [facility] Dec 02, 2023 02:30 PM AMBULATORY - [place]ICINE [place] [facility] Dec 04, 2023 01:00 PM [...] [place] [facility] Social History: Smoking Status (Most [...] 2023 09:12 AM [place]-TOBACCO NEVER USED [facility] Tobacco Use History This section includes a history of the smoking, or tobacco-related health factors, that were collected on or before the date of the Encounter. The data comes from the [place] facility where the Encounter took place. Date/Time Smoking Status/Tobacco Use Comment F darvin Aug 09, 2021 09:20 AM [facility] Encounter Notes: All associated encounter notes This section contains the clinical notes associated to the Encounter. Date/Time Encounter Note(s) Provider Source Oct 17, 2023 12:00 AM NONVA CONSULT: LOCAL TITLE: COMMUNITY CARE-CONSULT RESULT NOTE STANDARD TITLE: NONVA CONSULT DATE OF NOTE: OCT 17, 2023 ENTRY DATE: NOVEMBER 11, 2023@09:59:02 AUTHOR: DAHIANA MCMILLAN EXP COSIGNER: URGENCY: STATUS: COMPLETED VistA Imaging - Scanned Document SCANNED DOCUMENT SIGNATURE NOT REQUIRED Electronically Filed: 11/11/2023 by: DAHIANA JANG CNTL [facility]
--- OUTSIDE RECORDS SUMMARY | 2024-06-29 18:59 | XMS_ITS | Encounter Summary ---
Author Name [facility] [place] [facility] [place] Address [address] [place] [address] Care Team Providers Care Rollway Worker Name Role Phone ABDIRAHMAN LAKE Primary [...] BASIC FAMIL Y Jun 24, 2009 112 [id number] [phone] ABHILASH GARAY PATIENT ANTHEM BCBS [place] F[place] PREFERRED PROVIDER ORGANIZAT ION (PPO) FEP BASIC FAM Jun 24, 2009 112 [id number] [phone] ABHILASH GARAY PATIENT ANTHEM [place] F[place] PREFERRED PROVIDER ORGANIZAT ION (PPO) FEP BASIC FAM Jun 24, 2009 112 [id number] [phone] ABHILASH GARAY PATIENT [place] PREFERRED PROVIDER ORGANIZAT ION (PPO) FEP BASIC FAM Jun 24, 2009 112 [id number] [phone] ABHILASH GARAY PATIENT [place] PREFERRED PROVIDER ORGANIZAT ION (PPO) FEP BASIC FAM Jun 24, 2009 112 [id number] [phone] ABHILASH GARAY PATIENT [place]BS [place] F[place] PREFERRED PROVIDER ORGANIZAT ION (PPO) BASIC FAMIL Y Jun 24, 2009 [id number] ABHILASH GARAY PATIENT [place] F[place] PREFERRED PROVIDER ORGANIZAT ION (PPO) BASIC FAMIL Y Jun 24, 2009 112 [id number] [phone] ABHILASH GARAY PATIENT [place] F[place] PREFERRED PROVIDER ORGANIZAT ION (PPO) BASIC FAMIL Y Jun 24, 2009 [id number] ABHILASH GARAY PATIENT [place] F[place] DENTAL DENTAL INSURANCE BASIC Jul 12, 2009 DENTAL [id number] ABHILASH GARAY PATIENT [place] PREFERRED PROVIDER ORGANIZAT ION (PPO) BASIC FAMIL Y Jun 24, 2009 112 [id number] [phone] ABHILASH GARAY PATIENT [employer] FEP ([id number]) PRESCRIPT ION FEPRX Jun 24, 2009 [id number] [phone] ABHILASH GARAY PATIENT [employer] FEP BCBS PRESCRIPT ION CAREM ARK FEPRX PLAN Nov 21, 2021 [id number] BAHILASH GARAY PATIENT [employer] FEPRX PLAN PRESCRIPT ION CAREM ARK FEPRX Nov 21, 2021 [id number] ABHILASH GARAY PATIENT [employer]-F EP BCBS PRESCRIPT ION FEP CAREM ARK Nov 21, 2021 [id number] ABHILASH GARAY PATIENT [employer]-F EP BCBS PRESCRIPT ION FEP Jun 23, 2010 [id number] RUBI GARAYNETH PATIENT MEDICARE (WN) MEDICARE () PART A Feb 22, 2020 PART A [id number] [phone] ABHILASH GARAY PATIENT MEDICARE (WN) MEDICARE () PART A Feb 22, 2020 PART A [id number] [phone] ABHILASH GARAY PATIENT MEDICARE (WNR) MEDICARE (M) PART A Feb 22, 2020 PART A [id number] ABHILASH GARAY PATIENT MEDICARE (WNR) MEDICARE (M) PART A Feb 22, 2020 PART A [id number] ABHILASH GARAY PATIENT MEDICARE (WNR) MEDICARE (M) PART A Feb 22, 2020 PART A [id number] [id number] [phone] ABHILASH GARAY PATIENT Selected Encounter This section includes the information on record at [place] for the Encounter. Date/Time Encounter Type Encounter Description Reason Provider Source November 03, 2023 11:00 AM EXERCISE CLASS HEALTH/WELLBEING SRVS ICD-10-CM Y93.42 Activity, PAT Yoder [place] IHE Encounter Template Text not used by [place] Assessments - Encounter Diagnoses This section includes the primary and secondary diagnoses documented for the Encounter. Date/Time Primary/Secondary Diagnosis Diagnosis Name Provider Source November 03, 2023 03:24 PM PRIMARY Activity, PEDRO Yoder [facility] [place] [place] [facility] Plan of Treatment: Future Appointments [...] Appointment Type Appointme nt Facility Name November 06, 2023 01:00 PM AMBULATORY - MEDICINE [place] [facility] [place] [facility] November 06, 2023 02:00 PM AMBULATORY - MEDICINE [place] [facility] November 10, 2023 11:00 AM AMBULATORY - MEDICINE [place] [facility] November 13, 2023 10:30 AM AMBULATORY - MEDICINE [place] [facility] November 18, 2023 11:00 AM AMBULATORY - MEDICINE [place] [facility] November 20, 2023 10:30 AM AMBULATORY [facility]ICINE [place] [facility] [place] [facility] November 20, 2023 01:00 PM AMBULATORY - MEDICINE [place] [facility] [place] [facility] Nov 27, 2023 02:00 PM AM[facility]ULATORY - MEDICINE [facility] Dec 02, 2023 11:00 AM AM[facility]ULATORY [facility] [place]INE [place] [facility] [place] [facility] Dec 02, 2023 02:30 PM AMBULATORY [facility]INE [place] [facility] [place] [facility] Dec 04, 2023 01:00 PM AMBULATORY [facility]ICINE [place] [facility] [place] [facility] Dec 08, 2023 11:00 AM AMBULATORY [facility]INE [place] [facility] [place] [facility] Dec 11, 2023 01:00 PM AMBULATORY - [facility]ICINE [place] [facility] [place] [facility] Dec 15, 2023 11:00 AM AMBULATORY [facility]ICINE [place] [facility] [place] [facility] Dec 15, 2023 03:00 PM AMBULATORY - MEDICINE [place] [facility] [place] [facility] Dec 17, 2023 02:00 PM AMBULATORY - [facility]AB [facility] [place] Dec 18, 2023 01:00 PM AMBULATORY - MEDICINE [place] [facility] Dec 22, 2023 10:30 AM AM[facility]ULATORY - MEDICINE [facility] Dec 31, 2023 08:15 PM AMBULATORY - MEDICINE [place] [facility] Jan 01, 2024 01:00 PM AMBULATORY - MEDICINE [place] [facility] Social History: Smoking Status (Most [...] 08, 2023 09:12 AM [place] [place] [facility] Tobacco Use History This section includes a history of the smoking, or tobacco-related health factors, that were collected on or before the date of the Encounter. The data comes from the [place] facility where the Encounter took place. Date/Time Smoking Status/Tobacco Use Comment F darvin Aug 09, 2021 09:20 AM [place]-TOBACCO NEVER USED [facility] Encounter Notes: All associated encounter notes This section contains the clinical notes associated to the Encounter. Date/Time Encounter Note(s) Provider Source November 03, 2023 11:00 AM RECREATIONAL THERA PY NOTE: LOCAL TITLE: [place] WELLBEING STANDARD TITLE: RECREATIONAL THERAPY NOTE DATE OF NOTE: NOVEMBER 03, 2023@11:00 ENTRY DATE: NOVEMBER 03, 2023@15:19:29 AUTHOR: MARY KATE MOORE COSIGNER: URGENCY: STATUS: [...] tree, triangle pose, wide leg forward bend, [place] 2, Extended Side Angle Pose, Intense Side Stretch, [place] 1, plank, cobra, locust, downward facing dog, [...] attentive to his breath throughout the session. Butler will return to class as his schedule allows. /yunior/ MARY KATE MOORE [id number] Vp Packaging Signed: 11/03/2023 15:31 [facility]ORE [facility]
--- OUTSIDE RECORDS SUMMARY | 2024-06-29 18:59 | XMS_ITS | Encounter Summary ---
Author Name [facility] [place] [facility] [place] Address [address] [place] [address] Care Team Providers Care Child Care Lead Teacher Name Role Phone ABDIRAHMAN LAKE Primary [...] BASIC FAMIL Y Jun 24, 2009 112 [id number] [phone] ABHILASH GARAY PATIENT ANTHEM BCBS [place] FEP PREFERRED PROVIDER ORGANIZAT ION (PPO) FEP BASIC FAM Jun 24, 2009 112 [id number] [phone] ABHILASH GARAY PATIENT ANTHEM [place] F[place] PREFERRED PROVIDER ORGANIZAT ION (PPO) FEP BASIC FAM Jun 24, 2009 [id number] [phone] ABHILASH GARAY PATIENT ANTHEM [place] PREFERRED PROVIDER ORGANIZAT ION (PPO) FEP BASIC FAM Jun 24, 2009 112 [id number] [phone] ABHILASH GARAY PATIENT [place] PREFERRED PROVIDER ORGANIZAT ION (PPO) FEP BASIC FAM Jun 24, 2009 [id number] [phone] ABHILASH GARAY PATIENT [place]BS [place] F[place] PREFERRED PROVIDER ORGANIZAT ION (PPO) BASIC FAMIL Y Jun 24, 2009 112 [id number] [phone] ABHILASH GARAY PATIENT [place] F[place] PREFERRED PROVIDER ORGANIZAT ION (PPO) BASIC FAMIL Y Jun 24, 2009 [id number] [phone] ABHILASH GARAY PATIENT [place] FEP PREFERRED PROVIDER ORGANIZAT ION (PPO) BASIC FAMIL Y Jun 24, 2009 [id number] ABHILASH GARAY PATIENT [place] F[place] DENTAL DENTAL INSURANCE BASIC Jul 12, 2009 DENTAL [id number] ABHILASH GARAY PATIENT [place] PREFERRED PROVIDER ORGANIZAT ION (PPO) BASIC FAMIL Y Jun 24, 2009 [id number] ABHILASH GARAY PATIENT [employer] FEP ([id number]) PRESCRIPT ION FEPRX Jun 24, 2009 [id number] [phone] ABHILASH GARAY PATIENT [employer] FEP BCBS PRESCRIPT ION CAREM ARK FEPRX PLAN Nov 21, 2021 [id number] ABHILASH GARAY PATIENT [employer] FEPRX PLAN PRESCRIPT ION CAREM ARK FEPRX Nov 21, 2021 [id number] ABHILASH GARAY PATIENT [employer]-F EP BCBS PRESCRIPT ION FEP CAREM ARK Nov 21, 2021 [id number] ABHILASH GARAY PATIENT [employer]-F EP BCBS PRESCRIPT ION FEP Jun 23, 2010 [id number] RUBI GARAYNETH PATIENT MEDICARE (WN) MEDICARE () PART A Feb 22, 2020 PART A [id number] ABHILASH GARAY PATIENT MEDICARE (WN) MEDICARE () PART A Feb 22, 2020 PART A [id number] ABHILASH GARAY PATIENT MEDICARE (WNR) MEDICARE (M) PART A Feb 22, 2020 PART A [id number] ABHILASH GARAY PATIENT MEDICARE (WNR) MEDICARE (M) PART A Feb 22, 2020 PART A [id number] NV71 [phone] ABHILASH GARAY PATIENT MEDICARE (WNR) MEDICARE (M) PART A Feb 22, 2020 PART A [id number] NV71 [phone] ABHILASH GARAY PATIENT Selected Encounter This section includes the information on record at [place] for the Encounter. Date/Time Encounter Type Encounter Description Reason Provider Source November 06, 2023 02:00 PM INFRARED THERAPY CI TREATMENT ICD-10-CM M54.50 Low back pain, unspecified GRACE RODAS PHER M IHE Encounter Template Text not used by [place] Assessments - Encounter Diagnoses This section includes the primary and secondary diagnoses documented for the Encounter. Date/Time Primary/Secondary Diagnosis Diagnosis Name Provider Source November 06, 2023 02:47 PM PRIMARY Low back pain, unspecified GRACE RODAS PHER M [place] [facility] November 06, 2023 02:47 PM SECONDARY Paresthesia of skin GRACE RODAS M [place] [facility] Plan of [...] Appointment Type Appointme nt Facility Name November 10, 2023 11:00 AM AMBULATORY - MEDICINE [facility] [place] [facility] November 13, 2023 10:30 AM AMBULATORY - MEDICINE [facility] [place] [facility] November 18, 2023 11:00 AM AMBULATORY [place]ICINE [place] [facility] November 20, 2023 10:30 AM AMBULATORY - MEDICINE [place] [facility] November 20, 2023 01:00 PM AMBULATORY - MEDICINE [place] [facility] [place] [facility] Nov 27, 2023 02:00 PM AMBULATORY - MEDICINE [facility] Dec 02, 2023 11:00 AM AMBULATORY [...] [place] [facility] Dec 17, 2023 02:00 PM AMBULATORY - REHAB MEDICIN [facility] Dec 18, 2023 01:00 PM AM[place]ULATORY [place]ICINE [place] [facility] Dec 22, 2023 10:30 AM AMBULATORY - MEDICINE [facility] Dec 31, 2023 08:15 PM AMBULATORY - [place]ICINE [place] [facility] Jan 01, 2024 01:00 PM AM[place]ULATORY [place] [facility] Jan 02, 2024 09:[address] [facility] Jan 07, 2024 03:00 [facility] Social History: Smoking Status (Most current) [...] AM [place]TO[place]ACCO [place] [facility] Tobacco Use History This section includes a history of the smoking, or tobacco-related health factors, that were collected on or before the date of the Encounter. The data comes from the [place] facility where the Encounter took place. Date/Time Smoking Status/Tobacco Use Vanita boston Aug 09, 2021 09:20 AM [place]-TOBACCO [place] US[place] [facility] Encounter Notes: All associated encounter notes This section contains the clinical notes associated to the Encounter. Date/Time Encounter Note(s) Provider Source November 06, 2023 02:42 PM ACUPUNCTURE NOTE: LOCAL TITLE: ACUPUNCTURE TREATMENT STANDARD TITLE: ACUPUNCTURE NOTE DATE OF NOTE: NOVEMBER 06, 2023@14:42 ENTRY DATE: NOVEMBER 06, 2023@14:42:36 AUTHOR: DEE RODAS EXP COSIGNER: URGENCY: STATUS: COMPLETED VISIT Number: ABHILASH GARAY is a 68 WHITE MALE [...] HYPERLIPIDEMIA NEC/NOS 272.4 11/26/2010 GREGG [place] Date October CC / HPI - presents with 2 [...] he calls twinges and jabs with movement. states when he is over active his pain can be as bad as 10/10. has secondary complaint of restless leg syndrome which he reports he has had since he was a kid. states his legs feel agitated if he sits too long or sometimes in bed at night. [place] states that the RLS can affect his sleep. Anitha also reports that he has bilateral peripheral neuropathy in his feet can get quite numb at times. 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 [place] states he gets stabbing pain that can cause him to limp periodically. Anitha states that he has sleep apnea uses a CPAP. He reports he does well with the CPAP machine and gets approximately 9 hours of sleep per night. [place] reports he has a good appetite but his diet could be better. Anitha is diabetic. Anitha has a history of thyroid and skin cancer. Anitha had his thyroid removed last year. states he gets cold easily. Digestion: Anitha has history of GERD but no other issues. No discomfort reported. Bowel movements regular and unremarkable. Urine normal. RESPONSE TO PREVIOUS TREATMENT. states his response to the initial visit was minimal. Anitha did not note any pain reduction or change in neuropathy levels after treatment. Anitha states that this is a similar experience he had when he started utilizing community care acupuncture. It took several visits to start building an effect. _ OBJECTIVE General: . Patient in no [...] SUMMARY Affected Channel: Medical Decision Making (MDM) [ ]Straightforward o [ ]Minimal = 1 self-limited or minor problem [X]Low o - 2 or more self-limited or minor problems o - 1 stable chronic illness o - 1 acute, uncomplicated illness or injury [ ]Moderate o - 1 or more chronic illness with exacerbation, progression or side effect from treatment o - 2 or more stable chronic illnesses o - 1 undiagnosed new problem w/uncertain prognosis o - 1 acute illness w/ systemic symptoms o - 1 acute complicated injury [ ]High o - 1 or more [...] ]Pyonex Needle: remove prior to bathing per clinical operations specialist INFORMED CONSENT: Oral Consent obtained on October The patient was positioned comfortably. Oral consent [...] Leonila 5, Leonila 5.5, Leonila 6 [X]RLE: KD 3, KD 4, KD 5, SP 2, SP 3, Bafeng [X]LLE: UB 65, GB 41, GB 40, GB 34, Bafeng [ ]Other therapies: [ ]Cupping: [ ]Cold Laser [ ]Peizo Pen: [ ]External Qigong: [X]TDP Lamp:Each foot 15 min [ ]Tui Na: [ ]Guasha: [ [...] new consult is required /yunior/ DEE RODAS LA.C, DIPL.AC NURSING SECRETARY Signed: 11/06/2023 15:12 DEE RODAS CNTRL [facility]
--- OUTSIDE RECORDS SUMMARY | 2024-06-29 18:59 | XMS_ITS | Encounter Summary ---
Author Name [facility] [place] [facility] [place] Address [address] [place] [address] Care Team Providers Care Construction Helper Name Role Phone ABDIRAHMAN LAKE Primary [...] BASIC FAMIL Y Jun 24, 2009 112 [id number] [phone] ABHILASH GARAY PATIENT ANTHEM BCBS [place] F[place] PREFERRED PROVIDER ORGANIZAT ION (PPO) FEP BASIC FAM Jun 24, 2009 112 [id number] [phone] ABHILASH GARAY PATIENT ANTHEM BCBS [place] F[place] PREFERRED PROVIDER ORGANIZAT ION (PPO) FEP BASIC FAM Jun 24, 2009 112 [id number] [phone] ABHILASH GARAY PATIENT ANTHEM [place] F[place] PREFERRED PROVIDER ORGANIZAT ION (PPO) FEP BASIC FAM Jun 24, 2009 112 [id number] [phone] ABHILASH GARAY PATIENT [place] F[place] PREFERRED PROVIDER ORGANIZAT ION (PPO) FEP BASIC FAM Jun 24, 2009 112 [id number] [phone] ABHILASH GARAY PATIENT BCBS [place] FEP PREFERRED PROVIDER ORGANIZAT ION (PPO) BASIC FAMIL Y Jun 24, 2009 [id number] ABHILASH GARAY PATIENT [place] PREFERRED PROVIDER ORGANIZAT ION (PPO) BASIC FAMIL Y Jun 24, 2009 112 [id number] [phone] ABHILASH GARAY PATIENT [place] F[place] PREFERRED PROVIDER ORGANIZAT ION (PPO) BASIC FAMIL Y Jun 24, 2009 112 [id number] [phone] ABHILASH GARAY PATIENT [place] FEP DENTAL DENTAL INSURANCE BASIC Jul 12, 2009 DENTAL [id number] ABHILASH GARAY PATIENT [place] F[place] PREFERRED PROVIDER ORGANIZAT ION (PPO) BASIC FAMIL Y Jun 24, 2009 [id number] ABHILASH GARAY PATIENT [place] FEP ([id number]) PRESCRIPT ION FEPRX Jun 24, 2009 [id number] [phone] ABHILASH GARAY PATIENT [place] FEP BCBS PRESCRIPT ION CAREM ARK FEPRX PLAN Nov 21, 2021 [id number] ABHILASH GARAY PATIENT [employer] FEPRX PLAN PRESCRIPT ION CAREM ARK FEPRX Nov 21, 2021 [id number] ABHILASH GARAY PATIENT [place]-F [place] BCBS PRESCRIPT ION FEP CAREM ARK Nov 21, 2021 [id number] ABHILASH GARAY PATIENT [place]-F EP BCBS PRESCRIPT ION FEP Jun 23, 2010 [id number] RUBI GARAYNETH PATIENT MEDICARE (WN) MEDICARE () PART A Feb 22, 2020 PART A [id number] ABHILASH GARAY PATIENT MEDICARE (WN) MEDICARE () PART A Feb 22, 2020 PART A [id number] ABHILASH GARAY PATIENT MEDICARE (WNR) MEDICARE (M) PART A Feb 22, 2020 PART A [id number] [phone] ABHILASH GARAY PATIENT MEDICARE (WNR) MEDICARE (M) PART A Feb 22, 2020 PART A [id number] ABHILASH GARAY PATIENT MEDICARE (WNR) MEDICARE (M) PART A Feb 22, 2020 PART A [id number] [phone] ABHILASH GARAY PATIENT Selected Encounter This section includes the information on record at [place] for the Encounter. Date/Time Encounter Type Encounter Description Reason Provider Source November 13, 2023 10:30 AM INFRARED THERAPY CIH TREATMENT ICD-10-CM R20.2 Paresthesia of skin GRACE RODAS [facility] Encounter Template Text not used by [place] Assessments - Encounter Diagnoses This section includes the primary and secondary diagnoses documented for the Encounter. Date/Time Primary/Secondary Diagnosis Diagnosis Name Provider Source November 13, 2023 11:40 AM PRIMARY Paresthesia of skin GRACE RODAS PHER [place] [facility] [place] [facility] November 13, 2023 11:40 AM SECONDARY Low back pain, unspecified GRACE RODAS [place] [facility] [facility] November 13, 2023 11:40 AM SECONDARY Pain in left toe(s) GRACE RODAS [place] [facility] [facility] [facility] November 13, 2023 11:40 AM SECONDARY Pain in right toe(s) GRACE RODAS [place]ER [place] [facility] [facility] [place] [facility] Plan of Treatment: Future Appointments (+ [...] Appointment Type Appointme nt Facility Name November 18, 2023 11:00 AM [facility] [place] [facility] November 20, 2023 10:30 AM [facility]IC[facility] [place] [facility] November 20, 2023 01:00 PM AMBULATORY [facility] MEDICINE [facility] [place] [facility] Nov 27, 2023 02:00 PM AMBULATORY - MEDICINE [facility] Dec 02, 2023 11:00 AM AM[facility]ULATORY [facility] MEDICINE [facility] [place] [facility] Dec 02, 2023 02:30 PM AMBULATORY [facility] MEDICINE [facility] [place] [facility] Dec 04, 2023 01:00 PM AMBULATORY [facility] MEDICINE [facility] [place] [facility] Dec 08, 2023 11:00 AM AMBULATORY [facility] MEDICINE [facility] [place] [facility] Dec 11, 2023 01:00 PM AMBULATORY [facility] MEDICINE [facility] [place] [facility] Dec 15, 2023 11:00 AM AM[facility]ULATORY [facility] MEDIC[facility] [place] [facility] Dec 15, 2023 03:00 PM AMBULATORY [facility] MEDICINE [facility] [place] [facility] Dec 17, 2023 02:00 PM AMBULATORY - [facility]AB [facility] Dec 18, 2023 01:00 PM AMBULATORY - MEDICINE [facility] [place] [facility] Dec 22, 2023 10:30 AM AMBULATORY - MEDICINE [facility] Dec 31, 2023 08:15 PM AMBULATORY - MEDICINE [facility] [place] [facility] Jan 01, 2024 01:00 PM AMBULATORY - MEDICINE [facility] [place] [facility] Jan 02, 2024 09:30 AM AMBULATORY - REHAB MEDICIN [facility] Jan 07, 2024 03:00 PM AMBULATORY - REHAB MEDICIN [facility] Jan 08, 2024 01:00 PM AMBULATORY - MEDICINE [facility] [place] [facility] Jan 09, 2024 11:00 AM AMBULATORY - MEDICINE [facility] [place] [facility] Social History: Smoking Status (Most [...] 08, 2023 09:12 AM VA-TOBACCO NEVER USED [facility] Tobacco Use History This section includes a history of the smoking, or tobacco-related health factors, that were collected on or before the date of the Encounter. The data comes from the [place] facility where the Encounter took place. Date/Time Smoking Status/Tobacco Use Comment F acility Aug 09, 2021 09:20 AM VA-TOBACCO NEVER USED [facility] Encounter Notes: All associated encounter notes This section contains the clinical notes associated to the Encounter. Date/Time Encounter Note(s) Provider Source November 13, 2023 11:36 AM ACUPUNCTURE NOTE: LOCAL TITLE: ACUPUNCTURE TREATMENT STANDARD TITLE: ACUPUNCTURE NOTE DATE OF NOTE: NOVEMBER 13, 2023@11:36 ENTRY DATE: NOVEMBER 13, 2023@11:36:21 AUTHOR: DEE RODAS EXP COSIGNER: URGENCY: STATUS: [...] complaints. Primary complaint is low back pain. Luther states pain across the lumbar spine states [...] long or sometimes in bed at night. Anitha states that the RLS can affect his [...] normal. RESPONSE TO PREVIOUS TREATMENT. Anitha states that the last visit was not noticeably effective. 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 We discussed treatment going forward and agreed that several more visits will be given and then treatment efficacy will be assessed. _ OBJECTIVE General: . Patient in no [...] ]Pyonex Needle: remove prior to bathing per joy operator INFORMED CONSENT: Oral Consent obtained on October [...] is required /yunior/ DEE RODAS LA.C DIPL.AC TEAM SUPERVISOR Signed: 11/13/2023 11:40 DEE RODAS [facility]
--- OUTSIDE RECORDS SUMMARY | 2024-06-29 18:59 | XMS_ITS | Encounter Summary ---
Author Name [facility] [place] [facility] [place] Address [address] [place] [address] Care Team Providers Care Supervisor Dyer Name Role Phone ABDIRAHMAN LAKE Primary Care [...] BASIC FAMIL Y Jun 24, 2009 112 [id number] [phone] ABHILASH GARAY PATIENT ANTHEM BCBS [place] F[place] PREFERRED PROVIDER ORGANIZAT ION (PPO) FEP BASIC FAM Jun 24, 2009 112 [id number] [phone] ABHILASH GARAY PATIENT ANTHEM [place] F[place] PREFERRED PROVIDER ORGANIZAT ION (PPO) FEP BASIC FAM Jun 24, 2009 112 [id number] [phone] ABHILASH GARAY PATIENT [place] PREFERRED PROVIDER ORGANIZAT ION (PPO) FEP BASIC FAM Jun 24, 2009 112 [id number] [phone] ABHILASH GARAY PATIENT [place] PREFERRED PROVIDER ORGANIZAT ION (PPO) FEP BASIC FAM Jun 24, 2009 112 [id number] [phone] RUBI GARAYNETH PATIENT [place] FEP PREFERRED PROVIDER ORGANIZAT ION (PPO) BASIC FAMIL Y Jun 24, 2009 [id number] ABHILASH GARAY PATIENT [place] PREFERRED PROVIDER ORGANIZAT ION (PPO) BASIC FAMIL Y Jun 24, 2009 112 [id number] [phone] ABHILASH GARAY PATIENT [place] F[place] PREFERRED PROVIDER ORGANIZAT ION (PPO) BASIC FAMIL Y Jun 24, 2009 112 [id number] RUBI GARAYNETH PATIENT [place] F[place] DENTAL DENTAL INSURANCE BASIC Jul 12, 2009 DENTAL [id number] RUBI GARAYNETH PATIENT [place] F[place] PREFERRED PROVIDER ORGANIZAT ION (PPO) BASIC FAMIL Y Jun 24, 2009 [id number] [phone] ABHILASH GARAY PATIENT [employer] FEP ([id number]) PRESCRIPT ION FEPRX Jun 24, 2009 [id number] [phone] ABHILASH GARAY PATIENT [place] FEP BCBS PRESCRIPT ION CAREM ARK FEPRX PLAN Nov 21, 2021 [id number] ABHILASH GARAY PATIENT [employer] FEPRX PLAN PRESCRIPT ION CAREM ARK FEPRX Nov 21, 2021 [id number] [phone] ABHILASH GARAY PATIENT [place]-F EP BCBS PRESCRIPT ION FEP CAREM ARK Nov 21, 2021 [id number] ABHILASH GARAY PATIENT [place]-F EP BCBS PRESCRIPT ION FEP Jun 23, 2010 [id number] ABHILASH GARAY PATIENT MEDICARE (WN) MEDICARE (M) PART A Feb 22, 2020 PART A [id number] ABHILASH GARAY PATIENT MEDICARE ([facility]) MEDICARE (M) PART A Feb 22, 2020 PART A [id number] ABHILASH GARAY PATIENT MEDICARE (WNR) MEDICARE (M) PART A Feb 22, 2020 PART A [id number] ABHILASH GARAY PATIENT MEDICARE (WNR) MEDICARE (M) PART A Feb 22, 2020 PART A [id number] ABHILASH GARAY PATIENT MEDICARE (WNR) MEDICARE (M) PART A Feb 22, 2020 PART A [id number] ABHILASH GARAY PATIENT Selected Encounter This section includes the information on record at [place] for the Encounter. Date/Time Encounter Type Encounter Description Reason Provider Source November 03, 2023 01:00 PM OFFICE O/P NEW LOW 30 MIN CIH TREATMENT ICD-10-CM G25.81 Restless legs syndrome JESIJOSE MANUELO MARICARMEN Abreu [facility] Encounter Template Text not used by [place] Assessments - Encounter Diagnoses This section includes the primary and secondary diagnoses documented for the Encounter. Date/Time Primary/Secondary Diagnosis Diagnosis Name Provider Source Nov 27, 2023 07:57 AM PRIMARY Restless legs syndrome MANOHARMIKHAILGRACE PHER M [place] [facility] [facility] Nov 27, 2023 07:57 AM SECONDARY Low back pain, unspecified MANOHARMIKHAILGRACE PHER M [place] [facility] [facility] Nov 27, 2023 07:57 AM SECONDARY Pain in right foot JESIGRACE PHER M [place] [facility] [place] [facility] Nov 27, 2023 07:57 AM SECONDARY Pain in right toe(s) JESIGRACE PHER M [place] [facility] [facility] Nov 27, 2023 07:57 AM SECONDARY Paresthesia of skin JESIGRACE PHER M [place] [facility] [facility] Plan of Treatment: Future Appointments (+ 6 months) and Future Tests (+/- 45 days) The Plan of Treatment section includes future care activities for the patient from all [place] treatmentfacilities. This section includes future appointments and [...] [place] [facility] November 20, 2023 10:30 AM AMBULATORY - MEDICINE [facility] [place] [facility] November 20, 2023 01:00 PM AMBULATORY - MEDICINE [facility] [place] [facility] Nov 27, 2023 02:00 PM AM[facility]ULATORY - MEDICINE [facility] Dec 02, 2023 11:00 AM AMBULATORY - MEDICINE [facility] [place] [facility] Dec 02, 2023 02:30 PM AMBULATORY - MEDICINE [facility] [place] [facility] Dec 04, 2023 01:00 PM AMBULATORY - MEDICINE [facility] [place] [facility] Dec 08, 2023 11:00 AM AMBULATORY - MEDICINE [facility] [place] [facility] Dec 11, 2023 01:00 PM AMBULATORY - MEDICINE [facility] [place] [facility] Dec 15, 2023 11:00 AM AMBULATORY - MEDICINE [facility] [place] [facility] Dec 15, 2023 03:00 PM AMBULATORY - MEDICINE [facility] [place] [facility] Dec 17, 2023 02:00 PM AMBULATORY - REHAB MEDICIN [facility] [place] Dec 18, 2023 01:00 PM AMBULATORY - MEDICINE [facility] [place] [facility] Dec 22, 2023 10:30 AM [facility]ATORY [facility]IC[facility] Dec 31, 2023 08:15 PM [...] place. Date/Time Current Smoking Status Comment Odalis ity Apr 08, 2023 09:12 AM VA-TOBACCO NEVER USED [facility] Tobacco Use History This section includes a history of the smoking, or tobacco-related health factors, that were collected on or before the date of the Encounter. The data comes from the [place] facility where the Encounter took place. Date/Time Smoking Status/Tobacco Use Comment Gilberto boston Aug 09, 2021 09:20 AM VA-TOBACCO NEVER USED [facility] Encounter Notes: All associated encounter notes This section contains the clinical notes associated to the Encounter. Date/Time Encounter Note(s) Provider Source November 03, 2023 03:47 PM ACUPUNCTURE CONSULT: LOCAL TITLE: CONSULT REPORT/ACUPUNCTURE STANDARD TITLE: ACUPUNCTURE CONSULT DATE OF NOTE: NOVEMBER 03, 2023@15:47 ENTRY DATE: NOVEMBER 03, 2023@15:47:12 AUTHOR: DEE RODAS EXP COSIGNER: URGENCY: STATUS: COMPLETED ABHILASH GARAY is a 68 WHITE MALE who presents with Low back pain, restless leg syndrome, peripheral neuropathy. Pain in the right great toe Active Problem Primary malignant neoplasm of skin [...] lumbar level that radiates into both hips. Anitha states he does get radiation down posterior [...] foot when he was in the service. Sims states he gets stabbing pain that can [...] Anitha had his thyroid removed last year. Sims states he gets cold easily. Digestion: Anitha has history of GERD but no other issues. No discomfort reported. Bowel movements regular and unremarkable. Urine normal. TREATMENT HISTORY of Main Complaint: Anitha had been getting acupuncture in the community and reports that it was helpful in controlling his restless leg syndrome and reducing his low back pain. CLIENT GOALS FOR TREATMENT: PAST MEDICAL HISTORY: See co-morbidity in Assessment PAST SURGICAL HISTORY: REVIEW OF SYSTEMS: Except for what is mentioned in the HPI/SYMPTOMS there are no complaint of: Headache, Radicalgia, weakness, fever, sore throat, chest pain, shortness of breath, joint swelling, dizziness, vision loss, unexplained weight loss, bowel or bladder incontinence/retention or saddle anesthesia OBJECTIVE: Unless otherwise noted noted in HPI/Symptoms. General: . Patient in no apparent distress [...] Gait [X]antalgic [ ]non-antalgic [ ]ataxic [ ]Wheel Chair, Walker, Cane ASSESSMENT / SUMMARY Affected Channel(s)/OM Dx: UB, GB, SP Medical Decision Making (MDM) [ ]Straightforward o [ ]Minimal = 1 self-limited or minor problem [ ]Low o - 2 or more self-limited or minor problems o - 1 stable chronic illness o - 1 acute, uncomplicated illness or injury [X]Moderate o - 1 or more chronic illness [...] life or bodily function PLAN / RECOMMENDATION: Biweekly treatment for several visits then reassess. Follow-up visit [ ]1 WEEK [ ]2 WEEKS [ ]3 WEEKS [ ]1 MONTH FREQUENCY OF CARE [ ]1 X WEEKLY, [ ]2 X WEEKLY [X]Bi-Weekly, [ ]Monthly, [ ]Other Seeking: [ ]access to acupuncture for: [X]pain control [ ]Stress/anxiety reduction, [ ]Depression [ ]Other mental health: [ ]Addiction/dependence: [ ]Nicotine [ ]Alcohol [ ]Chemical [ ]Other: Patient Education: [X]Encouraged self-care management using active therapies. [ ](exercises, therapeutic movement, PT, biofeedback, smoking cessation, health coaching) to manage chronic pain while engaging passive therapies (acupuncture / chiropractic / massage) to manage [ ]acute / [ ]subacute (persistent) pain. [ ]Counseled not to view exercise as [...] ]Pyonex Needle: remove prior to bathing per glass furnace tender INFORMED CONSENT: Oral Consent obtained on October [...] by the patient and the provider. PROCEDURES: Number of Acupuncture Sets: [ ]1 [X]2 [ ]3 Set 1 TIME SPENT: 15 Minutes Position:[X]Prone [ ]Supine [ ]Left Side [ ] Right Side [ ]Seated Chair [ ] Massage Chair Points used: [X]Ear:[ ]Left [ ]Right [X]Bilateral [X]BFA Protocol, [ ][place] Protocol, [ ]ATP Protocol [ ]Ear: [ ]Carmichael Men, [ ]Point Zero, [ ]Sympathetic [ ]Ear Other: [ ]Head: [ ]Neck: [ ]Torso: [ ]Hip / Glute Area: [ ]LUE: [ ]RUE: [ ]LLE: [ ]RLE: Set 2 TIME SPENT: 15 Minutes Position:[X]Prone [ ]Supine [ ]Left Side [ ] Right Side [ ]Seated Chair [ ] Massage Chair Points used: [ ]Ear:[ ]Left [ ]Right [ ]Bilateral [ ]BFA Protocol, [ ][place] Protocol, [ ]ATP Protocol [ ]Ear: [ ]Carmichael Men, [ ]Point Zero, [ ]Sympathetic [ ]Ear Other: [ ]Head: [ ]Neck: [ ]Torso: [ ]Hip / Glute Area: [X]RUE: LK, DB, ZB, SI 4 [X]LUE: Leonila 5, Leonila 5.5, Leonila 6 [X]RLE: KD 3, KD 4, KD 5, SP 2, SP 3, Bafeng [X]LLE: UB 65, GB 41, GB 40, GB 34, Bafeng [ ]Other therapies: [ ]Cold Laser [ ]Cupping: [ ]Peizo Pen: [ ]External Qigong: [X]TDP Lamp:Right foot [ ]Tui Na: [ ]Guasha: [ ]Nutrition Counseling: The procedures were performed and needles removed without complication. Treatment Response: [X]nominal / [ ]negative / [ ]aborted due to [X]F/U PRN self-schedule upon unresolving re-aggravation or with degrading pain control. An RTC order will be necessary if patient is seeking self-schedule beyond one year; If beyond three years, a new consult is required. /yunior/ DEE RODAS LA.C, DIPL.AC PRICE LISTER Signed: 11/03/2023 15:58 DEE RODAS [facility]
--- OUTSIDE RECORDS SUMMARY | 2024-06-29 18:59 | XMS_ITS ---
Author Name [facility] [place] Address [address] [place] [address] Care Team Providers Care Financial Sales Consultant Name Role Phone ABDIRAHMAN LAKE Primary [...] BASIC FAMIL Y Jun 24, 2009 112 [id number] [phone] ABHILASH GARAY PATIENT ANTHEM [place]BS [place] F[place] PREFERRED PROVIDER ORGANIZAT ION (PPO) FEP BASIC FAM Jun 24, 2009 112 [id number] [phone] ABHILASH GARAY PATIENT ANTHEM BCBS [place] F[place] PREFERRED PROVIDER ORGANIZAT ION (PPO) FEP BASIC FAM Jun 24, 2009 112 [id number] [phone] ABHILASH GARAY PATIENT ANTHEM [place] PREFERRED PROVIDER ORGANIZAT ION (PPO) FEP BASIC FAM Jun 24, 2009 112 [id number] [phone] ABHILASH GARAY PATIENT [place]BS [place] FEP PREFERRED PROVIDER ORGANIZAT ION (PPO) FEP BASIC FAM Jun 24, 2009 112 [id number] [phone] ABHILASH GARAY PATIENT BCBS [place] FEP PREFERRED PROVIDER ORGANIZAT ION (PPO) BASIC FAMIL Y Jun 24, 2009 112 [id number] ABHILASH GARAY PATIENT [place] PREFERRED PROVIDER ORGANIZAT ION (PPO) BASIC FAMIL Y Jun 24, 2009 112 [id number] ABHILASH GARAY PATIENT [place] F[place] PREFERRED PROVIDER ORGANIZAT ION (PPO) BASIC FAMIL Y Jun 24, 2009 112 [id number] ABHILASH GARAY PATIENT [place] F[place] DENTAL DENTAL INSURANCE BASIC Jul 12, 2009 DENTAL [id number] ABHILASH GARAY PATIENT [place] FEP PREFERRED PROVIDER ORGANIZAT ION (PPO) BASIC FAMIL Y Jun 24, 2009 112 [id number] [phone] ABHILASH GARAY PATIENT [place] FEP ([id number]) PRESCRIPT ION FEPRX Jun 24, 2009 [id number] [phone] ABHILASH GARAY PATIENT [place] FEP BCBS PRESCRIPT ION CAREM ARK FEPRX PLAN Nov 21, 2021 [id number] ABHILASH GARAY PATIENT [place] FEPRX PLAN PRESCRIPT ION CAREM ARK FEPRX Nov 21, 2021 [id number] ABHILASH GARAY PATIENT [place]-F EP BCBS PRESCRIPT ION FEP CAREM ARK Nov 21, 2021 [id number] ABHILASH GARAY PATIENT [place]-F EP BCBS PRESCRIPT ION FEP Jun 23, 2010 [id number] RUBI GARAYNETH PATIENT MEDICARE (WN) MEDICARE () PART A Feb 22, 2020 PART A [id number] [phone] ABHILASH GARAY PATIENT MEDICARE (WN) MEDICARE () PART A Feb 22, 2020 PART A [id number] [phone] ABHILASH GARAY PATIENT MEDICARE (WNR) MEDICARE (M) PART A Feb 22, 2020 PART A [id number] ABHILASH GARAY PATIENT MEDICARE (WNR) MEDICARE (M) PART A Feb 22, 2020 PART A [id number] ABHILASH GARAY PATIENT MEDICARE (WNR) MEDICARE (M) PART A Feb 22, 2020 PART A [id number] ABHILASH GARAY PATIENT Selected Encounter This section includes the information on record at [place] for the Encounter. Date/Time Encounter Type Encounter Description Reason Provider Source November 06, 2023 01:00 PM EXERCISE CLASS HEALTH/WELLBEING SRVS ICD-10-CM Y93.42 Activity, PAT Yoder [place] IHE Encounter Template Text not used by [place] Assessments - Encounter Diagnoses This section includes the primary and secondary diagnoses documented for the Encounter. Date/Time Primary/Secondary Diagnosis Diagnosis Name Provider Source November 07, 2023 08:19 AM PRIMARY Activity, PEDRO Yoder [facility] [place] [place] [facility] Plan of Treatment: Future Appointments [...] 10, 2023 11:00 AM AMBULATORY - MEDICINE [place] [facility] [facility] November 13, 2023 10:30 AM AMBULATORY - [place]ICINE [place] [facility] November 18, 2023 11:00 AM AMBULATORY - MEDICINE [place] [facility] November 20, 2023 10:30 AM AMBULATORY - MEDICINE [place] [facility] November 20, 2023 01:00 PM AMBULATORY - MEDICINE [place] [facility] Nov 27, 2023 02:00 PM AMBULATORY - MEDICINE [facility] Dec 02, 2023 11:00 AM AMBULATORY - MEDICINE [place] [facility] Dec 02, 2023 02:30 PM AMBULATORY - MEDICINE [place] [facility] [place] [facility] Dec 04, 2023 01:00 PM AMBULATORY - MEDICINE [place] [facility] [place] [place] [facility] Dec 08, 2023 11:00 AM AMBULATORY - MEDICINE [place] [facility] [place] [place] [facility] Dec 11, 2023 01:00 PM AMBULATORY - MEDICINE [place] [facility] [place] [place] [facility] Dec 15, 2023 11:00 AM AMBULATORY - MEDICINE [place] [facility] [place] [place] [facility] Dec 15, 2023 03:00 PM AMBULATORY - MEDICINE [place] [facility] [place] [place] [facility] Dec 17, 2023 02:00 PM AMBULATORY - REHAB MED[facility] Dec 18, 2023 01:00 PM AMBULATORY - MEDICINE [place] [facility] Dec 22, 2023 10:30 AM AMBULATORY - MEDICINE [facility] Dec 31, 2023 08:15 PM AMBULATORY - MEDICINE [place] [facility] Jan 01, 2024 01:00 PM AMBULATORY - MEDICINE [place] [facility] Jan 02, 2024 09:30 AM AMBULATORY - REHAB MEDIC[facility] Jan 07, 2024 03:00 PM AMBULATORY - REHAB MEDIC[facility] Social History: Smoking Status (Most current) [...] 08, 2023 09:12 AM VA-TOBACCO NEVER USED [place] [place] [facility] Tobacco Use History This section includes a history of the smoking, or tobacco-related health factors, that were collected on or before the date of the Encounter. The data comes from the [place] facility where the Encounter took place. Date/Time Smoking Status/Tobacco Use Comment F acility Aug 09, 2021 09:20 AM VA-TOBACCO NEVER USED [facility] Encounter Notes: All associated encounter notes This section contains the clinical notes associated to the Encounter. Date/Time Encounter Note(s) Provider Source November 06, 2023 01:00 PM RECREATIONAL THERA PY NOTE: LOCAL TITLE: YOGA WELLBEING STANDARD TITLE: RECREATIONAL THERAPY NOTE DATE OF NOTE: NOVEMBER 06, 2023@13:00 ENTRY DATE: NOVEMBER 07, 2023@08:12:25 AUTHOR: MARY KATE MOORE EXP COSIGNER: URGENCY: [...] tree, triangle pose, wide leg forward bend, [place] 2, Extended Side Angle Pose, Intense Side Stretch, [place] 1, plank, cobra, locust, downward facing dog, wisdom pose, contralateral limb raises, head to knee pose, bridge, reclined twist, and knees to chest; Systematic Relaxation; and Gratitude. Modifications were geared toward the 's individual needs and preferences. was one of eleven participants in Group Yoga. He practiced all the postures offered, using a chair, yoga blocks, and a yoga strap for support as needed. He was attentive to his breath throughout the session. [place] will return to class as his schedule allows. /yunior/ MARY KATE MOORE, [id number] Cement Sack Breaker Signed: 11/07/2023 08:36 MARY KATE MOORE [facility]
--- OUTSIDE RECORDS SUMMARY | 2024-06-29 18:59 | XMS_ITS | Encounter Summary ---
Author Name [facility] [place] Address [address] [place] [address] Care Team Providers Care Hadoop Admin Name Role Phone ABDIRAHMAN LAKE Primary Care [...] BASIC FAMIL Y Jun 24, 2009 112 [id number] [phone] ABHILASH GARAY PATIENT ANTHEM BCBS [place] F[place] PREFERRED PROVIDER ORGANIZAT ION (PPO) FEP BASIC FAM Jun 24, 2009 112 [id number] [phone] ABHILASH GARAY PATIENT ANTHEM BCBS [place] F[place] PREFERRED PROVIDER ORGANIZAT ION (PPO) FEP BASIC FAM Jun 24, 2009 112 [id number] [phone] ABHILASH GARAY PATIENT [place]THE[place] PREFERRED PROVIDER ORGANIZAT ION (PPO) FEP BASIC FAM Jun 24, 2009 112 [id number] [phone] ABHILASH GARAY PATIENT [place] F[place] PREFERRED PROVIDER ORGANIZAT ION (PPO) FEP BASIC FAM Jun 24, 2009 112 [id number] [phone] RUBI GARAYNETH PATIENT [place]BS [place] FEP PREFERRED PROVIDER ORGANIZAT ION (PPO) BASIC FAMIL Y Jun 24, 2009 112 [id number] RUBI GARAYNETH PATIENT [place] PREFERRED PROVIDER ORGANIZAT ION (PPO) BASIC FAMIL Y Jun 24, 2009 112 [id number] [phone] RUBI GARAYNETH PATIENT [place] FEP PREFERRED PROVIDER ORGANIZAT ION (PPO) BASIC FAMIL Y Jun 24, 2009 112 [id number] [phone] RUBI GARAYNETH PATIENT [place] F[place] DENTAL DENTAL INSURANCE BASIC Jul 12, 2009 DENTAL [id number] [phone] DEJAHDANIKARUBI ACEVESNETH PATIENT [place] F[place] PREFERRED PROVIDER ORGANIZAT ION (PPO) BASIC FAMIL Y Jun 24, 2009 112 [id number] ABHILASH GARAY PATIENT [place] FEP ([id number]) PRESCRIPT ION FEPRX Jun 24, 2009 [id number] [phone] ABHILASH GARAY PATIENT [place] FEP BCBS PRESCRIPT ION CAREM ARK FEPRX PLAN Nov 21, 2021 [id number] ABHILASH GARAY PATIENT [place] FEPRX PLAN PRESCRIPT ION CAREM ARK FEPRX Nov 21, 2021 [id number] ABHILASH GARAY PATIENT [place]-F EP BCBS PRESCRIPT ION FEP CAREM ARK Nov 21, 2021 [id number] ABHILASH GARAY PATIENT [place]-F EP BCBS PRESCRIPT ION FEP Jun 23, 2010 [id number] RUBI GARAYNETH PATIENT MEDICARE ([facility]) MEDICARE () PART A Feb 22, 2020 PART A [id number] ABHILASH GARAY PATIENT MEDICARE (WNR) MEDICARE (M) PART A Feb 22, 2020 PART A [id number] ABHILASH GARAY PATIENT MEDICARE (WNR) MEDICARE (M) PART A Feb 22, 2020 PART A [id number] ABHILASH GARAY PATIENT MEDICARE (WNR) MEDICARE (M) PART A Feb 22, 2020 PART A [id number] ABHILASH GARAY PATIENT MEDICARE (WNR) MEDICARE (M) PART A Feb 22, 2020 PART A [id number] [phone] ABHILASH GARAY PATIENT Selected Encounter This section includes the information on record at [place] for the Encounter. Date/Time Encounter Type Encounter Description Reason Pro vider Source October 31, 2023 08:18 PM Outpatient Encounter ADMIN PAT ACTIVTIES (MASNONCT) IHE Encounter Template Text not used by [place] Plan of Treatment: Future Appointments (+ 6 months) and Future Tests (+/- 45 days) The Plan of Treatment section includes future care activities for the patient from all [place] treatmentfacilities. This section includes future appointments and [...] 03, 2023 11:00 AM AMBULATORY - MEDICINE [facility] [place] [place] [facility] November 03, 2023 01:00 PM AMBULATORY - [place]ICINE [place] [facility] November 06, 2023 01:00 PM AMBULATORY - [place]ICINE [place] [facility] November 06, 2023 02:00 PM AMBULATORY - [place]ICINE [place] [facility] November 10, 2023 11:00 AM AMBULATORY - MEDICINE [place] [facility] November 13, 2023 10:30 AM AMBULATORY - MEDICINE [place] [facility] November 18, 2023 11:00 AM AMBULATORY - MEDICINE [facility] [place] [facility] November 20, 2023 10:30 AM AMBULATORY - MEDICINE [place] [facility] November 20, 2023 01:00 PM AMBULATORY - MEDICINE [place] [facility] Nov 27, 2023 02:00 PM AMBULATORY - MEDICINE [facility] Dec 02, 2023 11:00 AM AMBULATORY - MEDICINE [place] [facility] Dec 02, 2023 02:30 PM AMBULATORY - MEDICINE [place] [facility] [place] [facility] Dec 04, 2023 01:00 PM AMBULATORY - MEDICINE [place] [facility] [place] [place] [facility] Dec 08, 2023 11:00 AM AMBULATORY - MEDICINE [place] [facility] [place] [facility] Dec 11, 2023 01:00 PM AMBULATORY - MEDICINE [place] [facility] [place] [facility] Dec 15, 2023 11:00 AM AMBULATORY - MEDICINE [place] [facility] [place] [facility] Dec 15, 2023 03:00 PM AMBULATORY - MEDICINE [place] [facility] [place] [facility] Dec 17, 2023 02:00 PM AMBULATORY - REHAB MEDICIN [facility] [place] [place] [facility] Dec 18, 2023 01:00 PM AMBULATORY - MEDICINE [place] [facility] Dec 22, 2023 10:30 AM AMBULATORY - MEDICINE [facility] Social [...] 08, 2023 09:12 AM [facility] Tobacco Use History This section includes a history of the smoking, or tobacco-related health factors, that were collected on or before the date of the Encounter. The data comes from the [place] facility where the Encounter took place. Date/Time Smoking Status/Tobacco Use Comment Gilberto boston Aug 09, 2021 09:20 AM VA-TOBACCO NEVER USED [facility] Encounter Notes: All associated encounter notes This section contains the clinical notes associated to the Encounter. Date/Time Encounter Note(s) Provider Source October 31, 2023 08:18 PM PHARMACY NOTE: LOCAL TITLE: V1 PHARMACY CUSTOMER CARE MEDICATION RENEWAL STANDARD TITLE: PHARMACY NOTE DATE OF NOTE: OCTOBER 31, 2023@20:18 ENTRY DATE: OCTOBER 31, 2023@20:19:06 AUTHOR: LOIS ELIAS EXP COSIGNER: URGENCY: STATUS: COMPLETED Date: October Division: [facility] referred by Pharmacy Call Center for medication renewal: Non-controlled/maintenan ce medication Medications requested: [id number] RIVAROXABAN 20MG TAB Defer to primary care provider To be mailed . Please review and renew if appropriate. *This note was generated by [facility]/[place] Pharmacy Customer Care. If you have any questions or need assistance, do not contact this author. Please refer all questions to your local, on-site pharmacy departments. /yunior/ LOIS ELIAS CPhT Optical Sales Associate, [place]/Pharmacy Customer Care Signed: 10/31/2023 20:20 Receipt Acknowledged By: 11/03/2023 07:52 /yunior/ GE PEREIRA NP NURSE PRACTITIONER for GREGG HARMON 11/05/2023 09:01 /yunior/ VESTA BLISS MD PRIMARY CARE PHYSICIAN 11/03/2023 15:50 /yunior/ STEF BAKERN RN-BC REGISTERED NURSE LOIS ELIAS [place] CNT[facility] TRN [facility]
--- OUTSIDE RECORDS SUMMARY | 2024-06-29 18:59 | XMS_ITS | Encounter Summary ---
Author Name [facility] [place] Address [address] [place] [address] Care Team Providers Care Brace Maker Name Role Phone ABDIRAHMAN LAKE Primary [...] BASIC FAMIL Y Jun 24, 2009 112 [id number] [phone] ABHILASH GARAY PATIENT ANTHEM BCBS [place] FEP PREFERRED PROVIDER ORGANIZAT ION (PPO) FEP BASIC FAM Jun 24, 2009 112 [id number] [phone] ABHILASH GARAY PATIENT ANTHEM BCBS [place] FEP PREFERRED PROVIDER ORGANIZAT ION (PPO) FEP BASIC FAM Jun 24, 2009 112 [id number] [phone] ABHILASH GARAY PATIENT ANTHEM [place] PREFERRED PROVIDER ORGANIZAT ION (PPO) FEP BASIC FAM Jun 24, 2009 112 [id number] [phone] ABHILASH GARAY PATIENT [place] PREFERRED PROVIDER ORGANIZAT ION (PPO) FEP BASIC FAM Jun 24, 2009 112 [id number] [phone] ABHILASH GARAY PATIENT BCBS [place] F[place] PREFERRED PROVIDER ORGANIZAT ION (PPO) BASIC FAMIL Y Jun 24, 2009 [id number] ABHILASH GARAY PATIENT [place] F[place] PREFERRED PROVIDER ORGANIZAT ION (PPO) BASIC FAMIL Y Jun 24, 2009 [id number] ABHILASH GARAY PATIENT [place] PREFERRED PROVIDER ORGANIZAT ION (PPO) BASIC FAMIL Y Jun 24, 2009 112 [id number] [phone] ABHILASH GARAY PATIENT [place] F[place] DENTAL DENTAL INSURANCE BASIC Jul 12, 2009 DENTAL [id number] ABHILASH GARAY PATIENT [place] PREFERRED PROVIDER ORGANIZAT ION (PPO) BASIC FAMIL Y Jun 24, 2009 112 [id number] [phone] ABHILASH GARAY PATIENT [place] FEP ([id number]) PRESCRIPT ION FEPRX Jun 24, 2009 [id number] [phone] ABHILASH GARAY PATIENT [place] FEP BCBS PRESCRIPT ION CAREM ARK FEPRX PLAN Nov 21, 2021 [id number] ABHILASH GARAY PATIENT [place] FEPRX PLAN PRESCRIPT ION CAREM ARK FEPRX Nov 21, 2021 [id number] ABHILASH GARAY PATIENT [place]-F EP BCBS PRESCRIPT ION FEP CAREM ARK Nov 21, 2021 [id number] ABHILASH GARAY PATIENT [place]-F EP BCBS PRESCRIPT ION FEP Jun 23, 2010 [id number] RUBI GARAYNETH PATIENT MEDICARE (WN) MEDICARE () PART A Feb 22, 2020 PART A [id number] ABHILASH GARAY PATIENT MEDICARE (WN) MEDICARE () PART A Feb 22, 2020 PART A [id number] [phone] ABHILASH GARAY PATIENT MEDICARE (WNR) MEDICARE (M) PART A Feb 22, 2020 PART A [id number] ABHILASH GARAY PATIENT MEDICARE (WNR) MEDICARE (M) PART A Feb 22, 2020 PART A [id number] [id number] ABHILASH GARAY PATIENT MEDICARE (WNR) MEDICARE (M) PART A Feb 22, 2020 PART A [id number] ABHILASH GARAY PATIENT Selected Encounter This section includes the information on record at [place] for the Encounter. Date/Time Encounter Type Encounter Description Reason Provider Source November 10, 2023 11:00 AM EXERCISE CLASS HEALTH/WELLBEING SRVS ICD-10-CM Y93.42 Activity, PAT Yoder [place] IHE Encounter Template Text not used by [place] Assessments - Encounter Diagnoses This section includes the primary and secondary diagnoses documented for the Encounter. Date/Time Primary/Secondary Diagnosis Diagnosis Name Provider Source November 10, 2023 01:58 PM PRIMARY Activity, PEDRO Yoder [facility] [place] [facility] Plan of Treatment: Future [...] 13, 2023 10:30 AM AMBULATORY - MEDICINE [place] C [place] [facility] November 18, 2023 11:00 AM AMBULATORY - MEDICINE [place] [facility] November 20, 2023 10:30 AM AMBULATORY - MEDICINE [place] [facility] November 20, 2023 01:00 PM AMBULATORY - MEDICINE [place] [facility] Nov 27, 2023 02:00 PM [facility] Dec 02, 2023 11:00 AM AMBULATORY - [place]ICINE [place] [facility] Dec 02, 2023 02:30 PM AMBULATORY - MEDICINE [place] [facility] [place] [facility] Dec 04, 2023 01:00 PM AMBULATORY - MEDICINE [place] [facility] [place] [facility] Dec 08, 2023 11:00 AM AMBULATORY - MEDICINE [place] [facility] [place] [place] [facility] Dec 11, 2023 01:00 PM AMBULATORY - MEDICINE [place] [facility] [place] [facility] Dec 15, 2023 11:00 AM AMBULATORY - MEDICINE [place] [facility] [place] [facility] Dec 15, 2023 03:00 PM AMBULATORY - MEDICINE [place] [facility] [place] [facility] Dec 17, 2023 02:00 PM AMBULATORY - [place]IC[place] Dec 18, 2023 01:00 PM AMBULATORY - MEDICINE [place] [facility] Dec 22, 2023 10:30 AM AMBULATORY - MEDICINE [facility] Dec 31, 2023 08:15 PM AMBULATORY - MEDICINE [place] [facility] [place] [facility] Jan 01, 2024 01:00 PM AMBULATORY - MEDICINE [place] [facility] [place] [facility] Jan 02, 2024 09:30 AM AMBULATORY - RE[place]IC[place] Jan 07, 2024 03:00 PM AMBULATORY - [place]AB MEDICIN [place] Jan 08, 2024 01:00 PM AMBULATORY - MEDICINE [place] C [place] [facility] Social History: Smoking Status [...] AM VA-TOBACCO NEVER USED [place] [facility] Tobacco Use History This section includes a history of the smoking, or tobacco-related health factors, that were collected on or before the date of the Encounter. The data comes from the [place] facility where the Encounter took place. Date/Time Smoking Status/Tobacco Use Comment F acility Aug 09, 2021 09:20 AM [place]-TOBACCO NEVER USED [facility] Encounter Notes: All associated encounter notes This section contains the clinical notes associated to the Encounter. Date/Time Encounter Note(s) Provider Source November 10, 2023 11:00 AM RECREATIONAL THERA PY NOTE: LOCAL TITLE: YOGA WELLBEING STANDARD TITLE: RECREATIONAL THERAPY NOTE DATE OF NOTE: NOVEMBER 10, 2023@11:00 ENTRY DATE: NOVEMBER 10, 2023@13:52:44 AUTHOR: MARY KATE MOORE EXP COSIGNER: URGENCY: [...] tree, triangle pose, wide leg forward bend, [place] 2, Extended Side Angle Pose, Intense Side Stretch, [place] 1, plank, cobra, locust, downward facing dog, wisdom pose, contralateral limb raises, head to knee pose, bridge, reclined twist, and knees to chest; Systematic Relaxation; and Gratitude. Modifications were geared toward the 's individual needs and preferences. was one of five participants in Group Yoga. He fully participated, practicing all the postures offered and using a chair for support as needed. He will return to class as his schedule allows. /yunior/ MARY KATE MOORE [id number] Manager Long Term Care Signed: 11/10/2023 14:03 MARY KATE MOORE [facility]
--- OUTSIDE RECORDS SUMMARY | 2024-06-29 19:00 | XMS_ITS | Encounter Summary ---
Author Name [facility] [place] [facility] [place] Address [address] [place] [address] Care Team Providers Care Clipper Machine Operator Name Role Phone ABDIRAHMAN LAKE [...] BASIC FAMIL Y Jun 24, 2009 112 [id number] [phone] ABHILASH GARAY PATIENT ANTHEM BCBS [place] F[place] PREFERRED PROVIDER ORGANIZAT ION (PPO) FEP BASIC FAM Jun 24, 2009 112 [id number] [phone] ABHILASH GARAY PATIENT ANTHEM [place]BS [place] F[place] PREFERRED PROVIDER ORGANIZAT ION (PPO) FEP BASIC FAM Jun 24, 2009 112 [id number] [phone] ABHILASH GARAY PATIENT [place] PREFERRED PROVIDER ORGANIZAT ION (PPO) FEP BASIC FAM Jun 24, 2009 112 [id number] [phone] ABHILASH GARAY PATIENT [place] F[place] PREFERRED PROVIDER ORGANIZAT ION (PPO) FEP BASIC FAM Jun 24, 2009 112 [id number] [phone] ABHILASH GARAY PATIENT BCBS [place] FEP PREFERRED PROVIDER ORGANIZAT ION (PPO) BASIC FAMIL Y Jun 24, 2009 [id number] ABHILASH GARAY PATIENT [place] PREFERRED PROVIDER ORGANIZAT ION (PPO) BASIC FAMIL Y Jun 24, 2009 112 [id number] ABHILASH GARAY PATIENT [place] F[place] PREFERRED PROVIDER ORGANIZAT ION (PPO) BASIC FAMIL Y Jun 24, 2009 112 [id number] [phone] ABHILASH GARAY PATIENT [place] FEP DENTAL DENTAL INSURANCE BASIC Jul 12, 2009 DENTAL [id number] ABHILASH GARAY PATIENT [place] F[place] PREFERRED PROVIDER ORGANIZAT ION (PPO) BASIC FAMIL Y Jun 24, 2009 [id number] ABHILASH GARAY PATIENT [place] FEP ([id number]) PRESCRIPT ION FEPRX Jun 24, 2009 [id number] [phone] ABHILASH GARAY PATIENT [place] FEP BCBS PRESCRIPT ION CAREM ARK FEPRX PLAN Nov 21, 2021 [id number] ABHILASH GARAY PATIENT [employer] FEPRX PLAN PRESCRIPT ION CAREM ARK FEPRX Nov 21, 2021 [id number] ABHILASH GARAY PATIENT [place]-F [place] BCBS PRESCRIPT ION FEP CAREM ARK Nov 21, 2021 [id number] ABHILASH GARAY PATIENT [place]-F EP BCBS PRESCRIPT ION FEP Jun 23, 2010 [id number] RUBI GARAYNETH PATIENT MEDICARE (WN) MEDICARE () PART A Feb 22, 2020 PART A [id number] ABHILASH GARAY PATIENT MEDICARE (WN) MEDICARE () PART A Feb 22, 2020 PART A [id number] ABHILASH GARAY PATIENT MEDICARE (WNR) MEDICARE (M) PART A Feb 22, 2020 PART A [id number] [phone] BAHILASH GARAY PATIENT MEDICARE (WNR) MEDICARE (M) PART A Feb 22, 2020 PART A [id number] ABHILASH GARAY PATIENT MEDICARE (WNR) MEDICARE (M) PART A Feb 22, 2020 PART A [id number] [phone] ABHILASH GARAY PATIENT Selected Encounter This section includes the information on [place] at [place] for the Encounter. Date/Time Encounter Type Encounter Description Reason Provider Source November 18, 2023 11:00 AM EXERCISE CLASS HEALTH/WELLBEING SRVS ICD-10-CM Y93.42 Activity, PAT Yoder IHFran Encounter Template Text not used by [place] Assessments - Encounter Diagnoses This section includes the primary and secondary diagnoses documented for the Encounter. Date/Time Primary/Secondary Diagnosis Diagnosis Name Provider Source November 18, 2023 02:07 PM PRIMARY Activity, PEDRO Yoder [facility] [place] [facility] Plan of Treatment: Future Appointments (+ 6 months) and Future Tests (+/- 45 days) The Plan of Treatment section includes future care activities for the patient from all [place] treatmentfacilities. This section includes future appointments and future orders which are active, pending or scheduled. Future Appointments This section includes appointments that were scheduled to occur 6 months from the date of the Encounter, up to a maximum of 20 appointments. The data comes from all [place] treatment facilities. Appointment Date/Time Appointment Type Appointme nt Facility Name November 20, 2023 10:30 AM AM[place]ORY [place] [facility] [place] [facility] November 20, 2023 01:00 PM [place] [facility] [place] [facility] Nov 27, 2023 02:00 PM [facility] Dec 02, 2023 11:00 AM [place] [facility] [place] [facility] Dec 02, 2023 02:30 PM [place] [facility] [place] [facility] Dec 04, 2023 01:00 PM [place] [facility] [place] [facility] Dec 08, 2023 11:00 AM [facility] [place] [facility] [place] [facility] Dec 11, 2023 01:00 PM [facility] [place] [facility] [place] [facility] Dec 15, 2023 11:00 AM [facility] [facility] [place] [facility] Dec 15, 2023 03:00 PM [facility] [place] [facility] [place] [facility] Dec 17, 2023 02:00 PM AMBULATORY - REHAB MEDICIN [facility] [place] Dec 18, 2023 01:00 PM [facility]INE [place] [facility] [place] [facility] Dec 22, 2023 10:30 AM AMBULATORY - MEDICINE [facility] Dec 31, 2023 08:15 PM AM[facility]ULAT[facility] [place]ICINE [place] [facility] [place] [facility] Jan 01, 2024 01:00 PM AM[facility]ULATORY [facility] [place]INE [place] [facility] [place] [facility] Jan 02, 2024 09:30 AM AMBULATORY - RE[facility]AB MEDICIN [facility] Jan 07, 2024 03:00 PM AMBULATORY - REHAB MEDICIN [facility] Jan 08, 2024 01:00 PM [facility]ULATORY [facility]ICINE [place] [facility] [place] [facility] Jan 09, 2024 11:00 AM AM[facility]ULAT[facility]ICINE [place] [facility] [place] [facility] Jan 13, 2024 11:00 AM AM[facility]ULATORY [facility]ICINE [place] [facility] [place] [facility] Social History: Smoking Status (Most current) and Tobacco Use (All prior to encounter date) This section includes the most current, and the historical, smoking and tobacco- related health factors from the [place] facility where the Encounter took place. Current Smoking Status This section includes the most current smoking, or tobacco-related health factor, from the [place] facility where the Encounter took place. Date/Time Current Smoking Status Comment Facil ity Apr 08, 2023 09:12 AM VA-TOBACCO NEVER USED [place] [facility] [place] [facility] Tobacco Use History This section includes a history of the smoking, or tobacco-related health factors, that were collected on or before the date of the Encounter. The data comes from the [place] facility where the Encounter took place. Date/Time Smoking Status/Tobacco Use Comment F acility Aug 09, 2021 09:20 AM VA-TOBACCO NEVER USED [facility] [place] [facility] Encounter Notes: All associated encounter notes This section contains the clinical notes associated to the Encounter. Date/Time Encounter Note(s) Provider Source November 18, 2023 11:00 AM RECREATIONAL THERA PY NOTE: LOCAL TITLE: YOGA WELLBEING STANDARD TITLE: RECREATIONAL THERAPY NOTE DATE OF NOTE: NOVEMBER 18, 2023@11:00 ENTRY DATE: NOVEMBER 18, 2023@14:04:06 AUTHOR: MARY KATE MOORE EXP COSIGNER: URGENCY: [...] tree, triangle pose, wide leg forward bend, [place] 2, Extended Side Angle Pose, Intense Side Stretch, [place] 1, plank, cobra, locust, downward facing dog, wisdom pose, contralateral limb raises, head to knee pose, bridge, reclined twist, and knees to chest; Systematic Relaxation; and Gratitude. Modifications were geared toward the 's individual needs and preferences. was one of ten participants in Group Yoga. He fully participated, practicing all the postures offered and modifying according to his needs. He practiced excellent self-care and used his breath as a tool to enhance his practice. He will return to class as his schedule allows. /yunior/ ROXANNA [id number] Hoop Flaring Machine Operator Helper Signed: 11/18/2023 14:18 MARY KATE MOORE [facility] [place] [facility]
--- OUTSIDE RECORDS SUMMARY | 2024-06-29 19:00 | XMS_ITS | Encounter Summary ---
Author Name [facility] [facility] [place] [facility] [place] Address [address] [place] [address] Care Team Providers Care Police Captain Senior Name Role Phone ABDIRAHMAN LAKE Primary Care [...] BASIC FAMIL Y Jun 24, 2009 112 [id number] [phone] ABHILASH GARAY PATIENT ANTHEM BCBS [place] F[place] PREFERRED PROVIDER ORGANIZAT ION (PPO) FEP BASIC FAM Jun 24, 2009 112 [id number] [phone] ABHILASH GARAY PATIENT ANTHEM [place] F[place] PREFERRED PROVIDER ORGANIZAT ION (PPO) FEP BASIC FAM Jun 24, 2009 112 [id number] [phone] ABHILASH GARAY PATIENT [place] PREFERRED PROVIDER ORGANIZAT ION (PPO) FEP BASIC FAM Jun 24, 2009 112 [id number] [phone] ABHILASH GARAY PATIENT [place] PREFERRED PROVIDER ORGANIZAT ION (PPO) FEP BASIC FAM Jun 24, 2009 112 [id number] [phone] ABHILASH GARAY PATIENT [place] F[place] PREFERRED PROVIDER ORGANIZAT ION (PPO) BASIC FAMIL Y Jun 24, 2009 112 [id number] ABHILASH GARAY PATIENT [place] PREFERRED PROVIDER ORGANIZAT ION (PPO) BASIC FAMIL Y Jun 24, 2009 112 [id number] [phone] ABHILASH GARAY PATIENT [place] FEP PREFERRED PROVIDER ORGANIZAT ION (PPO) BASIC FAMIL Y Jun 24, 2009 112 [id number] ABHILASH GARAY PATIENT [place] F[place] DENTAL DENTAL INSURANCE BASIC Jul 12, 2009 DENTAL [id number] ABHILASH GARAY PATIENT [place] PREFERRED PROVIDER ORGANIZAT ION (PPO) BASIC FAMIL Y Jun 24, 2009 [id number] ABHILASH GARAY PATIENT [employer] FEP ([id number]) PRESCRIPT ION FEPRX Jun 24, 2009 [id number] [phone] ABHILASH GARAY PATIENT [place] FEP BCBS PRESCRIPT ION CAREM ARK FEPRX PLAN Nov 21, 2021 [id number] ABHILASH GARAY PATIENT [employer] FEPRX PLAN PRESCRIPT ION CAREM ARK FEPRX Nov 21, 2021 [id number] ABHILASH GARAY PATIENT [employer]-F EP BCBS PRESCRIPT ION FEP CAREM ARK Nov 21, 2021 [id number] ABHILASH GARAY PATIENT [place]-F EP BCBS PRESCRIPT ION FEP Jun 23, 2010 [id number] ABHILASH GARAY PATIENT MEDICARE (WN) MEDICARE () PART A Feb 22, 2020 PART A [id number] ABHILASH GARAY PATIENT MEDICARE ([facility]) MEDICARE () PART A Feb 22, 2020 PART A [id number] ABHILASH GARAY PATIENT MEDICARE (WNR) MEDICARE (M) PART A Feb 22, 2020 PART A [id number] ABHILASH GARAY PATIENT MEDICARE (WNR) MEDICARE (M) PART A Feb 22, 2020 PART A [id number] ABHILASH GARAY PATIENT MEDICARE (WNR) MEDICARE (M) PART A Feb 22, 2020 PART A [id number] ABHILASH GARAY PATIENT Selected Encounter This section includes the [place] for the Encounter. Date/Time Encounter Type Encounter Description Reason Pro vider Source October 31, 2023 12:00 AM Outpatient Encounter COMMUNITY CARE CONSULT IHE Encounter Template Text not used by [place] Plan of Treatment: Future Appointments (+ 6 [...] 03, 2023 11:00 AM [facility] [place] [facility] November 03, 2023 01:00 PM AMBULATORY [place]ICINE [place] [facility] [place] [facility] [facility] November 06, 2023 01:00 PM AMBULATORY - [place]ICINE [place] [facility] [facility] November 06, 2023 02:00 PM AMBULATORY - [place]ICINE [place] [facility] [facility] November 10, 2023 11:00 AM AMBULATORY - [place]ICINE [place] [facility] [facility] November 13, 2023 10:30 AM AMBULATORY - [place]ICINE [place] [facility] [facility] November 18, 2023 11:00 AM AMBULATORY - [place]ICINE [place] [facility] [facility] November 20, 2023 10:30 AM AMBULATORY - [place]ICINE [place] [facility] [facility] November 20, 2023 01:00 PM AMBULATORY - [place]ICINE [place] [facility] [place] [facility] Nov 27, 2023 02:00 PM AM[place]ORY [place]IC[place] Dec 02, 2023 11:00 AM AMBULATORY - [place]ICINE [place] [facility] [facility] Dec 02, 2023 02:30 PM AMBULATORY [facility] [place]ICINE [place] [facility] [place] [facility] Dec 04, 2023 01:00 PM AMBULATORY - [place]INE [place] [facility] [place] [facility] Dec 08, 2023 11:00 AM AM[facility]ULATORY [place] [facility] [place] [facility] Dec 11, 2023 01:00 PM AMBULATORY [place]INE [place] [facility] [place] [facility] Dec 15, 2023 11:00 AM AM[facility]ULATORY [place] [facility] [place] [facility] Dec 15, 2023 03:00 PM AM[facility]ULATORY [place] [facility] [place] [facility] Dec 17, 2023 02:00 PM AMBULATORY - [place]ICIN [place] Dec 18, 2023 01:00 PM AMBULATORY [place]ICINE [place] [facility] [place] [facility] Dec 22, 2023 10:30 AM AM[facility]ULATORY - MEDICINE [facility] Social History: Smoking Status (Most current) [...] 08, 2023 09:12 AM VA-TOBACCO NEVER USED [facility] Tobacco Use History This section includes a history of the smoking, or tobacco-related health factors, that were collected on or before the date of the Encounter. The data comes from the [place] facility where the Encounter took place. Date/Time Smoking Status/Tobacco Use Comment F darvin Aug 09, 2021 09:20 AM VA-TOBACCO NEVER USED [place] [facility] Encounter Notes: All associated encounter notes This section contains the clinical notes associated to the Encounter. Date/Time Encounter Note(s) Provider Source October 31, 2023 12:00 AM NONVA CONSULT: LOCAL TITLE: COMMUNITY CARE-CONSULT RESULT NOTE STANDARD TITLE: NONVA CONSULT DATE OF NOTE: OCTOBER 31, 2023 ENTRY DATE: NOVEMBER 13, 2023@16:54:31 AUTHOR: BRIAN ZAMUDIO COSIGNER: URGENCY: STATUS: COMPLETED VistA Imaging - Scanned Document SCANNED DOCUMENT SIGNATURE NOT REQUIRED Electronically Filed: 11/13/2023 by: BRIAN HERNANDEZ [facility]
--- OUTSIDE RECORDS SUMMARY | 2024-06-29 19:00 | XMS_ITS | Encounter Summary ---
Author Name [facility] [place] Organization [facility] [place] Address [address] [place] [address] Care Team Providers Care Helicopter Pilot Instructor Name Role Phone ABDIRAHMAN [place] Primary Care [...] BASIC FAMIL Y Jun 24, 2009 [id number] [phone] ABHILASH GARAY PATIENT [place]THE[place] PREFERRED PROVIDER ORGANIZAT ION (PPO) FEP BASIC FAM Jun 24, 2009 112 [id number] [phone] ABHILASH GARAY PATIENT ANTHEM [place]BS [place] F[place] PREFERRED PROVIDER ORGANIZAT ION (PPO) FEP BASIC FAM Jun 24, 2009 112 [id number] [phone] ABHILASH GARAY PATIENT [place] PREFERRED PROVIDER ORGANIZAT ION (PPO) FEP BASIC FAM Jun 24, 2009 112 [id number] [phone] ABHILASH GARAY PATIENT [place] F[place] PREFERRED PROVIDER ORGANIZAT ION (PPO) FEP BASIC FAM Jun 24, 2009 112 [id number] [phone] ABHILASH GARAY PATIENT [place]BS [place] FEP PREFERRED PROVIDER ORGANIZAT ION (PPO) BASIC FAMIL Y Jun 24, 2009 [id number] ABHILASH GARAY PATIENT [place] PREFERRED PROVIDER ORGANIZAT ION (PPO) BASIC FAMIL Y Jun 24, 2009 [id number] ABHILASH GARAY PATIENT [place] PREFERRED PROVIDER ORGANIZAT ION (PPO) BASIC FAMIL Y Jun 24, 2009 [id number] [phone] ABHILASH GARAY PATIENT [place] FEP DENTAL DENTAL INSURANCE BASIC Jul 12, 2009 DENTAL [id number] ABHILASH GARAY PATIENT [place] F[place] PREFERRED PROVIDER ORGANIZAT ION (PPO) BASIC FAMIL Y Jun 24, 2009 [id number] ABHILASH GARAY PATIENT [employer] FEP ([id number]) PRESCRIPT ION FEPRX Jun 24, 2009 [id number] [phone] ABHILASH GARAY PATIENT [place] FEP BCBS PRESCRIPT ION CAREM ARK FEPRX PLAN Nov 21, 2021 [id number] ABHILASH GARAY PATIENT [employer] FEPRX PLAN PRESCRIPT ION CAREM ARK FEPRX Nov 21, 2021 [id number] ABHILASH GARAY PATIENT [place]-F EP BCBS PRESCRIPT ION FEP CAREM ARK Nov 21, 2021 [id number] ABHILASH GARAY PATIENT [place]-F EP BCBS PRESCRIPT ION FEP Jun 23, 2010 [id number] RUBI GARAYNETH PATIENT MEDICARE (WN) MEDICARE () PART A Feb 22, 2020 PART A [id number] ABHILASH GARAY PATIENT MEDICARE (WN) MEDICARE () PART A Feb 22, 2020 PART A [id number] ABHILASH GARAY PATIENT MEDICARE (WNR) MEDICARE (M) PART A Feb 22, 2020 PART A [id number] ABHILASH GARAY PATIENT MEDICARE (WNR) MEDICARE (M) PART A Feb 22, 2020 PART A [id number] ABHILASH GARAY PATIENT MEDICARE (WNR) MEDICARE (M) PART A Feb 22, 2020 PART A [id number] ABHILASH GARAY PATIENT Selected Encounter This section includes the information on record at [place] for the Encounter. Date/Time Encounter Type Encounter Description Reason Pro vider Source November 18, 2023 11:05 AM Outpatient Encounter TELEPHONE TRIAGE IHE Encounter Template Text not used by [...] 20, 2023 10:30 AM AMBULATORY - MEDICINE [place] [facility] November 20, 2023 01:00 PM AMBULATORY - MEDICINE [place] [facility] Nov 27, 2023 02:00 PM AMBULATORY - MEDICINE [facility] Dec 02, 2023 11:00 AM AMBULATORY - MEDICINE [place] [facility] Dec 02, 2023 02:30 PM AMBULATORY - MEDICINE [place] [facility] [place] [facility] Dec 04, 2023 01:00 PM AMBULATORY - MEDICINE [place] [facility] [place] [facility] Dec 08, 2023 11:00 AM AMBULATORY - MEDICINE [place] [facility] [place] [facility] Dec 11, 2023 01:00 PM AMBULATORY - MEDICINE [place] C [place] [facility] Dec 15, 2023 11:00 AM AMBULATORY - MEDICINE [place] C [place] [facility] Dec 15, 2023 03:00 PM AMBULATORY - MEDICINE [place] C [place] [facility] Dec 17, 2023 02:00 PM AMBULATORY - REHAB MEDICIN [place] Dec 18, 2023 01:00 PM AMBULATORY - MEDICINE [place] [facility] Dec 22, 2023 10:30 AM AMBULATORY - MEDICINE [facility] Dec 31, 2023 08:15 PM AMBULATORY - MEDICINE [place] C [place] [facility] Jan 01, 2024 01:00 PM AMBULATORY - MEDICINE [place] C [place] [facility] Jan 02, 2024 09:30 AM AMBULATORY - REHAB MEDICIN [place] Jan 07, 2024 03:00 PM AMBULATORY - REHAB MEDICIN [facility] Jan 08, 2024 01:00 PM AMBULATORY - MEDICINE [place] C [place] [facility] Jan 09, 2024 11:00 AM AMBULATORY - MEDICINE [place] C [place] [facility] Jan 13, 2024 11:00 AM AMBULATORY - MEDICINE [facility] Social History: Smoking Status [...] 08, 2023 09:12 AM VA-TOBACCO NEVER USED [facility] Tobacco Use History This section includes a history of the smoking, or tobacco-related health factors, that were collected on or before the date of the Encounter. The data comes from the [place] facility where the Encounter took place. Date/Time Smoking Status/Tobacco Use Comment Gilberto boston Aug 09, 2021 09:20 AM [facility] Encounter Notes: All associated encounter notes This section contains the clinical notes associated to the Encounter. Date/Time Encounter Note(s) Provider Source November 19, 2023 07:30 AM ADDENDUM: LOCAL TITLE: Addendum STANDARD TITLE: ADDENDUM DATE OF NOTE: NOVEMBER 19, 2023@07:30:59 ENTRY DATE: NOVEMBER 19, 2023@07:31 AUTHOR: RADHIKA GOMEZIGNER: URGENCY: STATUS: COMPLETED Please offer [place] a VVC visit with PCP to discuss chronic back pain and request for physical therapy to assist with pain management and neuropathy symptoms in next 2 weeks. /yunior/ BREANNA BAKER RN-BC REGISTERED NURSE Signed: 11/19/2023 07:32 Receipt Acknowledged By: 11/19/2023 12:03 /es/ LUNA LOPEZ ADVANCED HUMAN FACTORS SCIENTIST === --- Original Document --- 11/18/23 CCC: CLINICAL TRIAGE: Patient Demographics Patient Name: ABHILASH GARAY Patient Primary Address: [address] [place] [address] Patient Primary Phone: [phone] Patient : 1955 Patient Age: 68 Current Location: home Call Back Number: verified Caller/Recipient Relation to Patient: Self Emergency Contact: ANNA GARAY Triage Summary Conducted triage/discussed symptoms Utilized the Triage Tool: Yes Chief Complaint: Numbness Of Both Legs System WHEN: Within 2 Weeks Nurse's Recommendation / WHEN: Within 2 Weeks System WHERE: Clinic Nurse's Recommendation / WHERE: Clinic/[facility] Patient Disposition Patient/Caregiver agrees to plan of care: Yes Patient WHERE: Clinic/[facility] Patient WHEN: Within 2 weeks Nursing Plan and Disposition Referred Patient for In-Person Appt Transferred patient to Sched & Admin-Apt Other Description: asking for consults for PT, etc says prior PCP knew about neuropathy but new PCP may not Other course(s) of action Generated msg to PACT/Provider Alternative course of action Alternative courses of action: PACT to call back if no appts to let [place] know if consults can be placed instead Nurse Summary Nurse Summary: [place] wants PT, says he is going to yoga and acupuncture already but he has ongoing back pain and legs falling sleep/numbness, and tingling. states that he has neuropathy and scoliosis and [facility], or even water aerobics or bicycling. states that he walks a lot but his symptoms get worse if he walks too much. Says his numbness to his legs is about the same but it depends on the weather and occasionally gets worse. Pain level is at a 3-4 today. triaged and placed to [facility] for possible scheduling as he states he has not yet seen new PCP for neuropathy. Also is on statins found out after protocol was finished but he was unsure if these have been stopped for a trial period of time in the past so see if this would lessen his leg symptoms. Clinical Contact Center Codes Clinic/Location: V1 CWM PHONE CCC RN TXCC Triage Complete Triage Date: 11/18/2023, 10:56 AM Triage Note: Phone Triage 18 Nov 2023 14:54:13 +0000 [facility] Demographics 68 y/o Male Results CC: Numbness Of Both Legs Software suggested: Within 2 Weeks Software suggested follow-up location: Clinic, consider virtual care Values and Measures Duration of CC: 2 Years Positive Responses HPI: leg weakness, bilateral HPI: leg weakness, duration longer than 1 week Negative Responses Denies: HPI: has had lumbar puncture or epidural performed in the past week Denies: HPI: leg weakness, sudden onset Denies: HPI: leg weakness, worsening Denies: HPI: unable to walk Denies: PMH: high cholesterol /yunior/ GIOVANNI CHÁVEZ 1 NAYANA RN Signed: 11/18/2023 11:05 Receipt Acknowledged By: 11/19/2023 07:26 /yunior/ BREANNA BAKER RN- REGISTERED NURSE * AWAITING SIGNATURE * EUGENIE SALVADOR 11/19/2023 ADDENDUM STATUS: UNSIGNED You may not VIEW this UNSIGNED Addendum. RADHIKA GOMEZ [place] [facility] November 18, 2023 11:05 AM RN PROGRESS NOTE: LOCAL TITLE: CCC: CLINICAL TRIAGE STANDARD TITLE: RN PROGRESS NOTE DATE OF NOTE: NOVEMBER 18, 2023@11:05:16 ENTRY DATE: NOVEMBER 18, 2023@11:05:16 AUTHOR: GIOVANNI LEMA EXP COSIGNER: URGENCY: STATUS: COMPLETED CCC: CLINICAL TRIAGE Has ADDENDA Patient Demographics Patient Name: ABHILASH GARAY Patient Primary Address: [address] [place] [id number] Patient Primary Phone: [phone] Patient : 1955 Patient Age: 68 Current Location: home Call Back Number: verified Caller/Recipient Relation to Patient: Self Emergency Contact: ANNA JEBYOLA Triage Summary Conducted triage/discussed symptoms Utilized the Triage Tool: Yes Chief Complaint: Numbness Of Both Legs System WHEN: Within 2 Weeks Nurse's Recommendation / WHEN: Within 2 Weeks System WHERE: Clinic Nurse's Recommendation / WHERE: Clinic/[facility] Patient Disposition Patient/Caregiver agrees to plan of care: Yes Patient WHERE: Clinic/[facility] Patient WHEN: Within 2 weeks Nursing Plan and Disposition Referred Patient for In-Person Appt Transferred patient to Sched & Admin-Apt Other Description: asking for consults for PT, etc says prior PCP knew about neuropathy but new PCP may not Other course(s) of action Generated msg to PACT/Provider Alternative course of action Alternative courses of action: PACT to call back if no appts to let know if consults can be placed instead Nurse Summary Nurse Summary: wants PT, says he is going to yoga and acupuncture already but he has ongoing back pain and legs falling sleep/numbness, and tingling. states that he has neuropathy and scoliosis and was hoping that the [facility] could give [facility] consults for PT, or even water aerobics or bicycling. states that he walks a lot but his symptoms get worse if he walks too much. Says his numbness to his legs is about the same but it depends on the weather and occasionally gets worse. Pain level is at a 3-4 today. triaged and placed to [facility] for possible scheduling as he states he has not yet seen new PCP for neuropathy. Also is on statins found out after protocol was finished but he was unsure if these have been stopped for a trial period of time in the past so see if this would lessen his leg symptoms. Clinical Contact Center Codes Clinic/Location: V1 CWM PHONE CCC RN TXCC Triage Complete Triage Date: 11/18/2023, 10:56 AM Triage Note: Phone Triage 18 Nov 2023 14:54:13 +0000 [facility] Demographics 68 y/o Male Results CC: Numbness Of Both Legs Software suggested: Within 2 Weeks Software suggested follow-up location: Clinic, consider [facility] care Values and Measures Duration of CC: 2 Years Positive Responses HPI: leg weakness, bilateral HPI: leg weakness, duration longer than 1 week Negative Responses Denies: HPI: has had lumbar puncture or epidural performed in the past week Denies: HPI: leg weakness, sudden onset Denies: HPI: leg weakness, worsening Denies: HPI: unable to walk Denies: PMH: high cholesterol /yunior/ GIOVANNI CHÁVEZ 1 CCC RN Signed: 11/18/2023 11:05 Receipt Acknowledged By: 11/19/2023 07:26 /yunior/ BREANNA BAKER RN-BC REGISTERED NURSE 11/19/2023 14:46 /yunior/ EUGENIE SALVADOR LPN Licensed Practical Nurse 11/19/2023 ADDENDUM STATUS: COMPLETED Please offer a VVC visit with PCP to discuss chronic back pain and request for physical therapy to assist with pain management and neuropathy symptoms in next 2 weeks. /yunior/ BREANNA BAKER RN-BC REGISTERED NURSE Signed: 11/19/2023 07:32 Receipt Acknowledged By: 11/19/2023 12:03 /yunior/ LUNA LOPEZ ADVANCED HUMAN FACTORS SCIENTIST 11/19/2023 ADDENDUM STATUS: COMPLETED THIS LABORATORY AIDE HAD SPOKEN TO TO SCHEDULE VVC APPT WITH CWM/SO/PACT EIGHT PROVIDER ON 11/27/2023 AT 14:00 TO DISCUSS CHRONIC BACK PX AND REFERRAL TO PT. /yunior/ LUNA LOPEZ ADVANCED HUMAN FACTORS SCIENTIST Signed: 11/19/2023 12:04 GIOVANNI LEMA ID [facility]TRL [facility]
--- OUTSIDE RECORDS SUMMARY | 2024-06-29 19:00 | XMS_ITS ---
Author Name [facility] [place] Address [address] [place] [address] Care Team Providers Care Blind Lacer Name Role Phone ABDIRAHMAN [place] Primary Care [...] BASIC FAMIL Y Jun 24, 2009 [id number] [phone] ABHILASH GARAY PATIENT ANTHEM BCBS [place] FEP PREFERRED PROVIDER ORGANIZAT ION (PPO) FEP BASIC FAM Jun 24, 2009 [id number] [phone] ABHILASH GARAY PATIENT ANTHEM [place] F[place] PREFERRED PROVIDER ORGANIZAT ION (PPO) FEP BASIC FAM Jun 24, 2009 112 [id number] [phone] ABHILASH GARAY PATIENT [place] PREFERRED PROVIDER ORGANIZAT ION (PPO) FEP BASIC FAM Jun 24, 2009 112 [id number] [phone] ABHILASH GARAY PATIENT [place] PREFERRED PROVIDER ORGANIZAT ION (PPO) FEP BASIC FAM Jun 24, 2009 112 [id number] [phone] ABHILASH GARAY PATIENT [place] PREFERRED PROVIDER ORGANIZAT ION (PPO) BASIC FAMIL Y Jun 24, 2009 [id number] ABHILASH GARAY PATIENT [place] PREFERRED PROVIDER ORGANIZAT ION (PPO) BASIC FAMIL Y Jun 24, 2009 [id number] ABHILASH GARAY PATIENT [place] F[place] PREFERRED PROVIDER ORGANIZAT ION (PPO) BASIC FAMIL Y Jun 24, 2009 [id number] ABHILASH GARAY PATIENT [place] F[place] DENTAL DENTAL INSURANCE BASIC Jul 12, 2009 DENTAL [id number] ABHILASH GARAY PATIENT [place] PREFERRED PROVIDER ORGANIZAT ION (PPO) BASIC FAMIL Y Jun 24, 2009 [id number] ABHILASH GARAY PATIENT [employer] FEP ([id number]) PRESCRIPT ION FEPRX Jun 24, 2009 [id number] [phone] ABHILASH GARAY PATIENT [place] FEP BCBS PRESCRIPT ION CAREM ARK FEPRX PLAN Nov 21, 2021 [id number] ABHILASH GARAY PATIENT [place] FEPRX PLAN PRESCRIPT ION CAREM ARK FEPRX Nov 21, 2021 [id number] ABHILASH GARAY PATIENT [place]-F EP BCBS PRESCRIPT ION FEP CAREM ARK Nov 21, 2021 [id number] ABHILASH GARAY PATIENT [place]-F EP BCBS PRESCRIPT ION FEP Jun 23, 2010 [id number] ABHILASH GARAY PATIENT MEDICARE (WN) MEDICARE () PART A Feb 22, 2020 PART A [id number] ABHILASH GARAY PATIENT MEDICARE ([facility]) MEDICARE () PART A Feb 22, 2020 PART A [id number] NV71 [id number] [id number] ABHILASH GARAY PATIENT MEDICARE (WNR) MEDICARE (M) PART A Feb 22, 2020 PART A [id number] ABHILASH GARAY PATIENT MEDICARE (WNR) MEDICARE (M) PART A Feb 22, 2020 PART A [id number] ABHILASH GARAY PATIENT MEDICARE (WNR) MEDICARE (M) PART A Feb 22, 2020 PART A [id number] NV71 [phone] [id number] ABHILASH GARAY PATIENT Selected Encounter This section includes the information on record at [place] for the Encounter. Date/Time Encounter Type Encounter Description Reason Pro vider Source October 24, 2023 12:00 AM Outpatient Encounter COMMUNITY CARE CONSULT IHE Encounter Template Text not used by [place] Plan of Treatment: Future Appointments (+ 6 [...] 27, 2023 11:00 AM AMBULATORY - MEDICINE [facility] [place] [facility] November 03, 2023 11:00 AM AMBULATORY - MEDICINE [place] [facility] [place] [facility] November 03, 2023 01:00 PM AMBULATORY - MEDICINE [place] [facility] [place] [facility] November 06, 2023 01:00 PM AMBULATORY - MEDICINE [place] [facility] [place] [facility] November 06, 2023 02:00 PM AMBULATORY - MEDICINE [place] [facility] November 10, 2023 11:00 AM AMBULATORY - MEDICINE [place] [facility] [place] [facility] November 13, 2023 10:30 AM AMBULATORY - MEDICINE [place] [facility] [place] [facility] November 18, 2023 11:00 AM AMBULATORY - MEDICINE [place] [facility] [place] [facility] November 20, 2023 10:30 AM AMBULATORY - MEDICINE [place] [facility] [place] [facility] November 20, 2023 01:00 PM AMBULATORY - MEDICINE [place] [facility] [place] [facility] Nov 27, 2023 02:00 PM AMBULATORY - MEDICINE [place] Dec 02, 2023 11:00 AM AMBULATORY - MEDICINE [facility] [place] [facility] Dec 02, 2023 02:30 PM AMBULATORY - MEDICINE [facility] [place] [facility] Dec 04, 2023 01:00 PM AMBULATORY - MEDICINE [place] [facility] [place] [facility] Dec 08, 2023 11:00 AM AMBULATORY - MEDICINE [place] [facility] [place] [facility] Dec 11, 2023 01:00 PM AMBULATORY - MEDICINE [place] [facility] [place] [facility] Dec 15, 2023 11:00 AM AMBULATORY - MEDICINE [place] [facility] [place] [facility] Dec 15, 2023 03:00 PM AMBULATORY - MEDICINE [place] [facility] [place] [facility] Dec 17, 2023 02:00 PM AMBULATORY - REHAB MEDICIN E [place] Dec 18, 2023 01:00 PM AMBULATORY - MEDICINE [place] [facility] [place] [facility] Social History: Smoking Status (Most [...] 2023 09:12 AM VA-TOBACCO NEVER USED [facility] Tobacco Use History This section includes a history of the smoking, or tobacco-related health factors, that were collected on or before the date of the Encounter. The data comes from the [place] facility where the Encounter took place. Date/Time Smoking Status/Tobacco Use Comment F darvin Aug 09, 2021 09:20 AM VA-TOBACCO NEVER USED [facility] Encounter Notes: All associated encounter notes This section contains the clinical notes associated to the Encounter. Date/Time Encounter Note(s) Provider Source October 24, 2023 12:00 AM NONVA CONSULT: LOCAL TITLE: COMMUNITY CARE-CONSULT RESULT NOTE STANDARD TITLE: NONVA CONSULT DATE OF NOTE: OCTOBER 24, 2023 ENTRY DATE: NOVEMBER 13, 2023@16:56:07 AUTHOR: BRIAN ZAMUDIO EXP COSIGNER: URGENCY: STATUS: COMPLETED VistA Imaging - Scanned Document SCANNED DOCUMENT SIGNATURE NOT REQUIRED Electronically Filed: 11/13/2023 by: BRIAN HERNANDEZ CNTRL [facility]N [facility]
--- OUTSIDE RECORDS SUMMARY | 2024-06-29 19:00 | XMS_ITS | Encounter Summary ---
Author Name [facility] [place] Address [address] [place] [address] Care Team Providers Care Hog Operator Name Role Phone ABDIRAHMAN LAKE Primary [...] BASIC FAMIL Y Jun 24, 2009 [id number] [phone] ABHILASH GARAY PATIENT ANTHEM [place]BS [place] PREFERRED PROVIDER ORGANIZAT ION (PPO) FEP BASIC FAM Jun 24, 2009 [id number] [phone] ABHILASH GARAY PATIENT ANTHEM [place]BS [place] F[place] PREFERRED PROVIDER ORGANIZAT ION (PPO) FEP BASIC FAM Jun 24, 2009 112 [id number] [phone] ABHILASH GARAY PATIENT [place] PREFERRED PROVIDER ORGANIZAT ION (PPO) FEP BASIC FAM Jun 24, 2009 112 [id number] [phone] ABHILASH GARAY PATIENT [place] PREFERRED PROVIDER ORGANIZAT ION (PPO) FEP BASIC FAM Jun 24, 2009 112 [id number] [phone] RUBI GARAYNETH PATIENT [place]BS [place] F[place] PREFERRED PROVIDER ORGANIZAT ION (PPO) BASIC FAMIL Y Jun 24, 2009 [id number] RUBI GARAYNETH PATIENT [place] PREFERRED PROVIDER ORGANIZAT ION (PPO) BASIC FAMIL Y Jun 24, 2009 [id number] [phone] RUBI GARAYNETH PATIENT [place] FEP PREFERRED PROVIDER ORGANIZAT ION (PPO) BASIC FAMIL Y Jun 24, 2009 [id number] 62 RUBI GARAYNETH PATIENT [place] F[place] DENTAL DENTAL INSURANCE BASIC Jul 12, 2009 DENTAL [id number] [phone] DEJAHDANIKARUBI ACEVESNETH PATIENT [place] F[place] PREFERRED PROVIDER ORGANIZAT ION (PPO) BASIC FAMIL Y Jun 24, 2009 [id number] 62 ABHILASH GARAY PATIENT [employer] FEP ([id number]) PRESCRIPT ION FEPRX Jun 24, 2009 [id number] [phone] ABHILASH GARAY PATIENT [place] FEP BCBS PRESCRIPT ION CAREM ARK FEPRX PLAN Nov 21, 2021 [id number] ABHILASH GARAY PATIENT [employer] FEPRX PLAN PRESCRIPT ION CAREM ARK FEPRX Nov 21, 2021 [id number] ABHILASH GARAY PATIENT [place]-F EP BCBS PRESCRIPT ION FEP CAREM ARK Nov 21, 2021 [id number] ABHILASH GARAY PATIENT [place]-F EP BCBS PRESCRIPT ION FEP Jun 23, 2010 [id number] RUBI GARAYNETH PATIENT MEDICARE ([facility] MEDICARE () PART A Feb 22, 2020 PART A [id number] [phone] ABHILASH GARAY PATIENT MEDICARE (WNR) MEDICARE (M) PART A Feb 22, 2020 PART A [id number] ABHILASH GARAY PATIENT MEDICARE (WNR) MEDICARE (M) PART A Feb 22, 2020 PART A [id number] ABHILASH GARAY PATIENT MEDICARE (WNR) MEDICARE (M) PART A Feb 22, 2020 PART A [id number] [id number] ABHILASH GARAY PATIENT MEDICARE (WNR) MEDICARE (M) PART A Feb 22, 2020 PART A [id number] ABHILASH GARAY PATIENT Selected Encounter This section includes the information on record at [place] for the Encounter. Date/Time Encounter Type Encounter Description Reason Pro vider Source November 13, 2023 01:54 PM Outpatient Encounter ADMIN PAT ACTIVTIES (MASNONCT) [...] 18, 2023 11:00 AM AMBULATORY - [place]ICINE [place] [facility] [place] [facility] November 20, 2023 10:30 AM AM[place]ULATORY [place] [facility] [facility] November 20, 2023 01:00 PM AMBULATORY [place]INE [place] [facility] [facility] Nov 27, 2023 02:00 PM [facility] Dec 02, 2023 11:00 AM AM[place] [facility] Dec 02, 2023 02:30 PM AMBULATORY [place]ICINE [place] [facility] [facility] Dec 04, 2023 01:00 PM AMBULATORY [place]INE [place] [facility] [facility] Dec 08, 2023 11:00 AM AM[place]ULATORY [place] [facility] [place] [facility] Dec 11, 2023 01:00 PM AMBULATORY [place]ICINE [place] [facility] [facility] Dec 15, 2023 11:00 AM AMBULATORY [place]ICINE [place] [facility] [place] [facility] Dec 15, 2023 03:00 PM AMBULATORY - MEDICINE [place] [facility] [place] [facility] Dec 17, 2023 02:00 PM AMBULATORY - REHAB MEDICIN [facility] Dec 18, 2023 01:00 PM AMBULATORY [place]ICINE [place] [facility] Dec 22, 2023 10:30 AM AMBULATORY - MEDICINE [facility] Dec 31, 2023 08:15 PM AMBULATORY [place]ICINE [place] [facility] Jan 01, 2024 01:00 PM AMBULATORY [place]INE [place] [facility] Jan 02, 2024 09:30 AM AMBULATORY - REHAB MEDICIN [facility] Jan 07, 2024 03:00 PM AMBULATORY - REHAB MEDICIN [facility] Jan 08, 2024 01:00 PM AMBULATORY [place]INE [place] [facility] Jan 09, 2024 11:00 AM [facility] [place] [facility] Social History: Smoking Status (Most current) [...] 08, 2023 09:12 AM VA-TOBACCO NEVER USED [facility] Tobacco Use History This section includes a history of the smoking, or tobacco-related health factors, that were collected on or before the date of the Encounter. The data comes from the [place] facility where the Encounter took place. Date/Time Smoking Status/Tobacco Use Comment F darvin Aug 09, 2021 09:20 AM [place]-[facility] [facility] Encounter Notes: All associated encounter notes This section contains the clinical notes associated to the Encounter. Date/Time Encounter Note(s) Provider Source Nov 24, 2023 09:02 AM ADDENDUM: LOCAL TITLE: Addendum STANDARD TITLE: ADDENDUM DATE OF NOTE: NOV 24, 2023@09:02:53 ENTRY DATE: NOV 24, 2023@09:02:55 AUTHOR: VESTA BLISS COSIGNER: URGENCY: STATUS: COMPLETED Please place the requested consult and hold it for my signature. Thank you /oriana BLISS MD PRIMARY CARE PHYSICIAN Signed: 11/24/2023 09:03 Receipt Acknowledged By: 11/24/2023 15:38 /BREANNA Gillespie RN-BC REGISTERED NURSE === --- Original Document --- 11/13/23 CCC: SCHEDULING ADMINISTRATION: Patient Demographics Patient Name: ABHILASH GARAY Patient Primary Phone: [phone] Patient Primary Address: [address] [place] [address] Patient : 1955 Patient Age: 68 Caller/Recipient Relation to Patient: Self Administrative Administrative Note Reason: Other Administrative Note Comments: patient would like to speak to nurse about a physical therapy consult /yunior/ ANIKET GONZALEZ Signed: 11/13/2023 13:54 Receipt Acknowledged By: 11/18/2023 10:59 /BREANNA Gillespie REGISTERED NURSE 11/18/2023 11:12 /yunior/ EUGENIE SALVADOR LPN Licensed Practical Nurse 11/18/2023 ADDENDUM STATUS: COMPLETED Called and he reports that he has scoliosis and neuropathy. [place] is using yoga and acupuncture and that is providing some relief but he is wondering if physical therapy referral could be placed to assist with pain in back and legs. Author advised that will forward request to PCP for review. /BREANNA Gillespie RNThorBC REGISTERED NURSE Signed: 11/18/2023 11:03 Receipt Acknowledged By: 11/24/2023 09:02 /oriana BLISS MD PRIMARY CARE PHYSICIAN VESTA BLISS [facility] [place] [facility] November 18, 2023 10:59 AM ADDENDUM: LOCAL TITLE: Addendum STANDARD TITLE: ADDENDUM DATE OF NOTE: NOVEMBER 18, 2023@10:59:48 ENTRY DATE: NOVEMBER 18, 2023@10:59:49 AUTHOR: RADHIKA GOMEZ COSIGNER: URGENCY: STATUS: COMPLETED Called and he reports that he has scoliosis and neuropathy. [place] is using yoga and acupuncture and that is providing some relief but he is wondering if physical therapy referral could be placed to assist with pain in back and legs. Author advised that will forward request to PCP for review. /yunior/ BREANNA BAKER RN-BC REGISTERED NURSE Signed: 11/18/2023 11:03 Receipt Acknowledged By: 11/24/2023 09:02 /yunior/ VESTA BLISS MD PRIMARY CARE PHYSICIAN === --- Original Document --- 11/13/23 CCC: SCHEDULING ADMINISTRATION: Patient Demographics Patient Name: ABHILASH GARAY Patient Primary Phone: [phone] Patient Primary Address: [address] [place] [address] Patient : 1955 Patient Age: 68 Caller/Recipient Relation to Patient: Self Administrative Administrative Note Reason: Other Administrative Note Comments: patient would like to speak to nurse about a physical therapy consult /yunior/ ANIKET GONZALEZ Signed: 11/13/2023 13:54 Receipt Acknowledged By: 11/18/2023 10:59 /yunior/ BREANNA BAKER RN-RONI REGISTERED NURSE 11/18/2023 11:12 /yunior/ EUGENIE SALVADOR LPN Licensed Practical Nurse RADHIKA GOMEZ [facility] November 13, 2023 01:54 PM ADMINISTRATIVE NOT E: LOCAL TITLE: CCC: SCHEDULING ADMINISTRATION STANDARD TITLE: ADMINISTRATIVE NOTE DATE OF NOTE: NOVEMBER 13, 2023@13:54:20 ENTRY DATE: NOVEMBER 13, 2023@13:54:21 AUTHOR: ANIKET GONZALEZ COSIGNER: URGENCY: STATUS: COMPLETED CCC: SCHEDULING ADMINISTRATION Has ADDENDA Patient Demographics Patient Name: ABHILASH GARAY Patient Primary Phone: [phone] Patient Primary Address: [address] [place] [id number] Patient : 1955 Patient Age: 68 Caller/Recipient Relation to Patient: Self Administrative Administrative Note Reason: Other Administrative Note Comments: patient would like to speak to nurse about a physical therapy consult /yunior/ ANIKET GONZALEZ Signed: 11/13/2023 13:54 Receipt Acknowledged By: 11/18/2023 10:59 /BREANNA Gillespie RN-BC REGISTERED NURSE 11/18/2023 11:12 /yunior/ EUGENIE SALVADOR LPN Licensed Practical Nurse 11/18/2023 ADDENDUM STATUS: COMPLETED Called and he reports that he has scoliosis and neuropathy. [place] is using yoga and acupuncture and that is providing some relief but he is wondering if physical therapy referral could be placed to assist with pain in back and legs. Author advised that will forward request to PCP for review. /BREANNA Gillespie RN-RONI REGISTERED NURSE Signed: 11/18/2023 11:03 Receipt Acknowledged By: 11/24/2023 09:02 /oriana BLISS MD PRIMARY CARE PHYSICIAN 11/24/2023 ADDENDUM STATUS: COMPLETED Please place the requested consult and hold it for my signature. Thank you /oriana BLISS MD PRIMARY CARE PHYSICIAN Signed: 11/24/2023 09:03 Receipt Acknowledged By: 11/24/2023 15:38 /BREANNA Gillespie RN-RONI REGISTERED NURSE 11/24/2023 ADDENDUM STATUS: COMPLETED Placed [facility] PT consult as requested and held for provider review. /BREANNA Gillespie RN-RONI REGISTERED NURSE Signed: 11/24/2023 15:41 ANIKET GONZALEZ [place] [facility]
--- OUTSIDE RECORDS SUMMARY | 2024-06-29 19:01 | XMS_ITS | Encounter Summary ---
Author Name [place] Address [address] [place] [address] Care Team Providers Care Cognos Consultant Name Role Phone ABDIRAHMAN LAKE Primary [...] BASIC FAMIL Y Jun 24, 2009 [id number] [phone] ABHILASH GARAY PATIENT ANTHEM BCBS [place] F[place] PREFERRED PROVIDER ORGANIZAT ION (PPO) FEP BASIC FAM Jun 24, 2009 112 [id number] [phone] ABHILASH GARAY PATIENT ANTHEM [place] PREFERRED PROVIDER ORGANIZAT ION (PPO) FEP BASIC FAM Jun 24, 2009 [id number] [phone] ABHILASH GARAY PATIENT [place] PREFERRED PROVIDER ORGANIZAT ION (PPO) FEP BASIC FAM Jun 24, 2009 112 [id number] [phone] ABHILASH GARAY PATIENT [place] PREFERRED PROVIDER ORGANIZAT ION (PPO) FEP BASIC FAM Jun 24, 2009 [id number] [phone] ABHILASH GARAY PATIENT [place] PREFERRED PROVIDER ORGANIZAT ION (PPO) BASIC FAMIL Y Jun 24, 2009 [id number] ABHILASH GARAY PATIENT [place] PREFERRED PROVIDER ORGANIZAT ION (PPO) BASIC FAMIL Y Jun 24, 2009 112 [id number] [phone] ABHILASH GARAY PATIENT [place] FEP PREFERRED PROVIDER ORGANIZAT ION (PPO) BASIC FAMIL Y Jun 24, 2009 [id number] [phone] ABHILASH GARAY PATIENT [place] FEP DENTAL DENTAL INSURANCE BASIC Jul 12, 2009 DENTAL [id number] [phone] ABHILASH GARAY PATIENT [place] PREFERRED PROVIDER ORGANIZAT ION (PPO) BASIC FAMIL Y Jun 24, 2009 [id number] ABHILASH GARAY PATIENT [employer] FEP ([id number]) PRESCRIPT ION FEPRX Jun 24, 2009 [id number] [phone] ABHILASH GARAY PATIENT [place] FEP BCBS PRESCRIPT ION CAREM ARK FEPRX PLAN Nov 21, 2021 [id number] ABHILASH GARAY PATIENT [employer] FEPRX PLAN PRESCRIPT ION CAREM ARK FEPRX Nov 21, 2021 [id number] ABHILASH GARAY PATIENT [employer]-F EP BCBS PRESCRIPT ION FEP CAREM ARK Nov 21, 2021 [id number] ABHILASH GARAY PATIENT [employer]-F EP BCBS PRESCRIPT ION FEP Jun 23, 2010 [id number] RUBI GARAYNETH PATIENT MEDICARE (WN) MEDICARE () PART A Feb 22, 2020 PART A [id number] [phone] ABHILASH GARAY PATIENT MEDICARE ([place]) MEDICARE () PART A Feb 22, 2020 PART A [id number] ABHILASH GARAY PATIENT MEDICARE (WNR) MEDICARE (M) PART A Feb 22, 2020 PART A [id number] ABHILASH GARAY PATIENT MEDICARE (WNR) MEDICARE (M) PART A Feb 22, 2020 PART A [id number] ABHILASH GARAY PATIENT MEDICARE (WNR) MEDICARE (M) PART A Feb 22, 2020 PART A [id number] ABHILASH GARAY PATIENT Selected Encounter This section includes the information on record at [place] for the Encounter. Date/Time Encounter Type Encounter Description Reason Provider Source Jan 29, 2024 01:00 PM EXERCISE CLASS HEALTH/WELLBEING SRVS ICD-10-CM Y93.42 Activity, PAT Yoder [place] IHFran Encounter Template Text not used by [place] Assessments - Encounter Diagnoses This section includes the primary and secondary diagnoses documented for the Encounter. Date/Time Primary/Secondary Diagnosis Diagnosis Name Provider Source Jan 29, 2024 08:33 PM PRIMARY Activity, PEDRO Yoder [facility] [place] [place] [facility] Plan of Treatment: Future [...] Appointment Type Appointme nt Facility Name Jan 30, 2024 08:00 AM AMBULATORY - MEDICINE [facility] Feb 02, 2024 02:00 PM AM[place] [facility] Feb 04, 2024 11:00 AM AM[place] [facility] Feb 09, 2024 11:30 AM AM[place]ORY [place] [facility] Feb 09, 2024 02:00 PM AM[place]ORY [place] [facility] Feb 19, 2024 01:00 PM AMBULATORY - MEDICINE [place] [facility] [place] [facility] Feb 25, 2024 11:00 AM AMBULATORY - NONE [facility] [place] [facility] Mar 04, 2024 01:00 PM AMBULATORY - MEDICINE [place] [facility] [place] [facility] Mar 09, 2024 01:00 PM AMBULATORY - MEDICINE [place] [facility] [place] [facility] Mar 11, 2024 11:00 AM AMBULATORY - MEDICINE [place] [facility] [place] [facility] Mar 15, 2024 12:15 PM AMBULATORY - MEDICINE [place] [facility] [place] [facility] Mar 25, 2024 01:00 PM AMBULATORY - MEDICINE [place] [facility] [place] [facility] Apr 06, 2024 10:30 AM AMBULATORY - MEDICINE [facility] Apr 07, 2024 03:30 PM AMBULATORY - NONE [facility] [place] [place] [facility] Apr 08, 2024 01:00 PM AMBULATORY - MEDICINE [place] [facility] [place] [facility] Apr 12, 2024 11:00 AM AMBULATORY - MEDICINE [place] [facility] [place] [facility] Apr 15, 2024 10:00 AM AMBULATORY - MEDICINE [place] [facility] [place] [facility] Apr 19, 2024 11:00 AM AMBULATORY - MEDICINE [place] [facility] [place] [facility] Apr 22, 2024 09:00 AM AMBULATORY - MEDICINE [place] [facility] [place] [facility] May 03, 2024 01:00 PM AMBULATORY - MEDICINE [place] [facility] [place] [facility] Social History: Smoking Status [...] VA-TOBACCO NEVER USED [facility] [place] [facility] Tobacco Use History This section includes a history of the smoking, or tobacco-related health factors, that were collected on or before the date of the Encounter. The data comes from the [place] facility where the Encounter took place. Date/Time Smoking Status/Tobacco Use Comment F darvin Aug 09, 2021 09:20 AM [place] [facility] Encounter Notes: All associated encounter notes This section contains the clinical notes associated to the Encounter. Date/Time Encounter Note(s) Provider Source Jan 29, 2024 01:00 PM RECREATIONAL THERA PY NOTE: LOCAL TITLE: YOGA WELLBEING STANDARD TITLE: RECREATIONAL THERAPY NOTE DATE OF NOTE: JAN 29, 2024@13:00 ENTRY DATE: JAN 29, 2024@20:25:17 AUTHOR: MAR YKATE MOORE COSIGNER: URGENCY: STATUS: COMPLETED Group Yoga [...] tree, triangle pose, wide leg forward bend, [place] 2, Extended Side Angle Pose, Intense Side Stretch, [place] 1, plank, cobra, locust, downward facing dog, wisdom pose, contralateral limb raises, head to knee pose, bridge, reclined twist, and knees to chest; Systematic Relaxation; and Gratitude. Modifications were geared toward the [place]'s individual needs and preferences. [place] was one of eight participants in Group Yoga. He practiced all the postures offered, using a chair, yoga blocks and a yoga strap for support as needed. He was attentive to his breath throughout the session. will return to class as his schedule allows. /yunior/ NINO IBANEZ-[address] [place] Wellness Coordinator Signed: 01/29/2024 20:37 MARY KATE MOORE [place] [facility]
--- OUTSIDE RECORDS SUMMARY | 2024-06-29 19:01 | XMS_ITS | Encounter Summary ---
Author Name [place] Address [address] [place] [address] Care Team Providers Care Planning Management It Specialist Name Role Phone ABDIRAHMAN LAKE Primary [...] BASIC FAMIL Y Jun 24, 2009 112 [id number] [phone] ABHIALSH GARAY PATIENT ANTHEM BCBS [place] FEP PREFERRED PROVIDER ORGANIZAT ION (PPO) FEP BASIC FAM Jun 24, 2009 [id number] [phone] ABHILASH GARAY PATIENT ANTHEM [place] PREFERRED PROVIDER ORGANIZAT ION (PPO) FEP BASIC FAM Jun 24, 2009 112 [id number] [phone] ABHILASH GARAY PATIENT [place] PREFERRED PROVIDER ORGANIZAT ION (PPO) FEP BASIC FAM Jun 24, 2009 112 [id number] [phone] ABHILASH GARAY PATIENT [place] PREFERRED PROVIDER ORGANIZAT ION (PPO) FEP BASIC FAM Jun 24, 2009 [id number] [phone] ABHILASH GARAY PATIENT [place] F[place] PREFERRED PROVIDER ORGANIZAT ION (PPO) BASIC FAMIL Y Jun 24, 2009 [id number] ABHILASH GARAY PATIENT [place] PREFERRED PROVIDER ORGANIZAT ION (PPO) BASIC FAMIL Y Jun 24, 2009 [id number] ABHILASH GARAY PATIENT [place] FEP PREFERRED PROVIDER ORGANIZAT ION (PPO) BASIC FAMIL Y Jun 24, 2009 [id number] ABHILASH GARAY PATIENT [place] F[place] DENTAL DENTAL INSURANCE BASIC Jul 12, 2009 DENTAL [id number] ABHILASH GARAY PATIENT [place] PREFERRED PROVIDER ORGANIZAT ION (PPO) BASIC FAMIL Y Jun 24, 2009 [id number] [phone] ABHILASH GARAY PATIENT [employer] FEP ([id number]) PRESCRIPT ION FEPRX Jun 24, 2009 [id number] [phone] ABHILASH GARAY PATIENT [employer] FEP BCBS PRESCRIPT ION CAREM ARK FEPRX PLAN Nov 21, 2021 [id number] ABHILASH GARAY PATIENT [employer] FEPRX PLAN PRESCRIPT ION CAREM ARK FEPRX Nov 21, 2021 [id number] ABHILASH GARAY PATIENT [employer]-F EP BCBS PRESCRIPT ION FEP CAREM ARK Nov 21, 2021 [id number] ABHILASH GARAY PATIENT [employer]-F EP BCBS PRESCRIPT ION FEP Jun 23, 2010 [id number] RUBI GARAYNETH PATIENT MEDICARE (WN) MEDICARE () PART A Feb 22, 2020 PART A [id number] [phone] ABHILASH GARAY PATIENT MEDICARE (WN) MEDICARE () PART A Feb 22, 2020 PART A [id number] ABHILASH GARAY PATIENT MEDICARE (WNR) MEDICARE (M) PART A Feb 22, 2020 PART A [id number] ABHILASH GARAY PATIENT MEDICARE (WNR) MEDICARE (M) PART A Feb 22, 2020 PART A [id number] ABHILASH GARAY PATIENT MEDICARE (WNR) MEDICARE (M) PART A Feb 22, 2020 PART A [id number] ABHILASH GARAY PATIENT Selected Encounter This section includes the information on record at [place] for the Encounter. Date/Time Encounter Type Encounter Description Reason Provider Source November 20, 2023 01:00 PM EXERCISE CLASS HEALTH/WELLBEING SRVS ICD-10-CM Y93.42 Activity, PAT Yoder IHFran Encounter Template Text not used by [place] Assessments - Encounter Diagnoses This section includes the primary and secondary diagnoses documented for the Encounter. Date/Time Primary/Secondary Diagnosis Diagnosis Name Provider Source November 21, 2023 08:00 AM PRIMARY Activity, PEDRO Yoder [facility] [place] [facility] Plan of Treatment: Future Appointments [...] Date/Time Appointment Type Appointme nt Facility Name Nov 27, 2023 02:00 PM AMBULATORY - MEDICINE [facility] Dec 02, 2023 11:00 AM AM[place] [facility] [facility] Dec 02, 2023 02:30 PM [place] [facility] Dec 04, 2023 01:00 PM [place] [facility] Dec 08, 2023 11:00 AM [place] [facility] [facility] Dec 11, 2023 01:00 PM AMBULATORY [place]ICINE [place] [facility] [place] [facility] Dec 15, 2023 11:00 AM AMBULATORY [facility] MEDICINE [facility] [place] [facility] Dec 15, 2023 03:00 PM AMBULATORY [facility] MEDICINE [place] [facility] [place] [facility] Dec 17, 2023 02:00 PM AM[facility]ULATORY - RE[facility]AB [facility]ICIN [facility] Dec 18, 2023 01:00 PM AMBULATORY [facility] MEDICINE [place] [facility] [place] [facility] Dec 22, 2023 10:30 AM AMBULATORY - MEDICINE [facility] Dec 31, 2023 08:15 PM [place] [facility] [facility] Jan 01, 2024 01:00 PM AMBULATORY [place]ICINE [place] [facility] [place] [facility] Jan 02, 2024 09:30 AM AMBULATORY [facility] Jan 07, 2024 03:00 PM [facility]ULATORY - [facility]AB [facility] Jan 08, 2024 01:00 PM [place] [facility] [facility] Jan 09, 2024 11:00 AM [place] [facility] [facility] Jan 13, 2024 11:00 AM AM[facility]ULATORY [place] [facility]ICINE [place] [facility] [place] [facility] Jan 14, 2024 03:00 PM AMBULATORY - REHAB MEDICIN [facility] Jan 21, 2024 03:00 PM AMBULATORY - RE[facility]AB [facility]ICIN [facility] Social History: Smoking Status (Most [...] 08, 2023 09:12 AM [place]-TOBACCO NEVER USED [place] [facility] Tobacco Use History This section includes a history of the smoking, or tobacco-related health factors, that were collected on or before the date of the Encounter. The data comes from the [place] facility where the Encounter took place. Date/Time Smoking Status/Tobacco Use Comment F acility Aug 09, 2021 09:20 AM VA-TOBACCO NEVER USED [facility] Encounter Notes: All associated encounter notes This section contains the clinical notes associated to the Encounter. Date/Time Encounter Note(s) Provider Source November 20, 2023 01:00 PM RECREATIONAL THERA PY NOTE: LOCAL TITLE: YOGA WELLBEING STANDARD TITLE: RECREATIONAL THERAPY NOTE DATE OF NOTE: NOVEMBER 20, 2023@13:00 ENTRY DATE: NOVEMBER 21, 2023@07:57:46 AUTHOR: MARY KATE MOORE EXP COSIGNER: URGENCY: [...] tree, triangle pose, wide leg forward bend, [place] 2, Extended Side Angle Pose, Intense Side Stretch, [place] 1, plank, cobra, locust, downward facing [...] as his schedule allows. /yunior/ ROXANNA [id number] Speaker Mounter Signed: 11/21/2023 08:09 MARY KATE MOORE [facility]
--- OUTSIDE RECORDS SUMMARY | 2024-06-29 19:01 | XMS_ITS | Encounter Summary ---
Author Name [facility] [place] Address [address] [place] [address] Care Team Providers Care Explosive Expert Name Role Phone ABDIRAHMAN LAKE Primary Care [...] BASIC FAMIL Y Jun 24, 2009 [id number] [phone] ABHILASH GARAY PATIENT ANTHEM BCBS [place] FEP PREFERRED PROVIDER ORGANIZAT ION (PPO) FEP BASIC FAM Jun 24, 2009 112 [id number] [phone] ABHILASH GARAY PATIENT ANTHEM BCBS [place] F[place] PREFERRED PROVIDER ORGANIZAT ION (PPO) FEP BASIC FAM Jun 24, 2009 112 [id number] [phone] ABHILASH GARAY PATIENT ANTHEM [place] F[place] PREFERRED PROVIDER ORGANIZAT ION (PPO) FEP BASIC FAM Jun 24, 2009 112 [id number] [phone] ABHILASH GARAY PATIENT [place]BS [place] F[place] PREFERRED PROVIDER ORGANIZAT ION (PPO) FEP BASIC FAM Jun 24, 2009 112 [id number] [phone] ABHILASH GARAY PATIENT BCBS [place] FEP PREFERRED PROVIDER ORGANIZAT ION (PPO) BASIC FAMIL Y Jun 24, 2009 112 [id number] [phone] ABHILASH GARAY PATIENT [place] PREFERRED PROVIDER ORGANIZAT ION (PPO) BASIC FAMIL Y Jun 24, 2009 [id number] ABHILASH GARAY PATIENT [place] F[place] PREFERRED PROVIDER ORGANIZAT ION (PPO) BASIC FAMIL Y Jun 24, 2009 112 [id number] [phone] ABHILASH GARAY PATIENT [place] FEP DENTAL DENTAL INSURANCE BASIC Jul 12, 2009 DENTAL [id number] [phone] ABHILASH GARAY PATIENT [place]BS [place] FEP PREFERRED PROVIDER ORGANIZAT ION (PPO) BASIC FAMIL Y Jun 24, 2009 112 [id number] [phone] ABHILASH GARAY PATIENT [place] FEP ([id number]) PRESCRIPT ION FEPRX Jun 24, 2009 [id number] [phone] ABHILASH GARAY PATIENT [place] FEP BCBS PRESCRIPT ION CAREM ARK FEPRX PLAN Nov 21, 2021 [id number] ABHILASH GARAY PATIENT [employer] FEPRX PLAN PRESCRIPT ION CAREM ARK FEPRX Nov 21, 2021 [id number] ABHILASH GARAY PATIENT [place]-F EP BCBS PRESCRIPT ION FEP CAREM ARK Nov 21, 2021 [id number] ABHILASH GARAY PATIENT [place]-F EP BCBS PRESCRIPT ION FEP Jun 23, 2010 [id number] RUBI GARAYNETH PATIENT MEDICARE (WN) MEDICARE () PART A Feb 22, 2020 PART A [id number] ABHILASH GARAY PATIENT MEDICARE (WN) MEDICARE () PART A Feb 22, 2020 PART A [id number] ABHILASH GARAY PATIENT MEDICARE (WNR) MEDICARE (M) PART A Feb 22, 2020 PART A [id number] ABHILASH GARAY PATIENT MEDICARE (WNR) MEDICARE (M) PART A Feb 22, 2020 PART A [id number] ABHILASH GARAY PATIENT MEDICARE (WNR) MEDICARE (M) PART A Feb 22, 2020 PART A [id number] ABHILASH GARAY PATIENT Selected Encounter This section includes the information on record at [place] for the Encounter. Date/Time Encounter Type Encounter Description Reason Provider Source Jan 26, 2024 11:00 AM EXERCISE CLASS HEALTH/WELLBEING SRVS ICD-10-CM Y93.42 Activity, PAT Yoder IHFran Encounter Template Text not used by [place] Assessments - Encounter Diagnoses This section includes the primary and secondary diagnoses documented for the Encounter. Date/Time Primary/Secondary Diagnosis Diagnosis Name Provider Source Jan 29, 2024 08:21 AM PRIMARY Activity, PEDRO Yoder [facility] [place] [facility] Plan of Treatment: Future Appointments [...] 28, 2024 11:00 AM AMBULATORY [place]ICINE [place] [facility] Jan 30, 2024 08:00 AM [facility] Feb 02, 2024 02:00 PM AMBULATORY - MEDICINE [place] [facility] Feb 04, 2024 11:00 AM AMBULATORY [place]ICINE [place] [facility] Feb 09, 2024 11:30 AM AMBULATORY - MEDICINE [facility] [place] [facility] Feb 09, 2024 02:00 PM AMBULATORY - MEDICINE [place] [facility] Feb 19, 2024 01:00 PM AMBULATORY - MEDICINE [place] [facility] [facility] Feb 25, 2024 11:00 AM AMBULATORY - NONE [place] [facility] [place] [facility] Mar 04, 2024 01:00 PM AMBULATORY - MEDICINE [place] [facility] [place] [facility] Mar 09, 2024 01:00 PM AMBULATORY - MEDICINE [place] [facility] [place] [facility] Mar 11, 2024 11:00 AM AMBULATORY - MEDICINE [place] [facility] [place] [facility] Mar 15, 2024 12:15 PM AMBULATORY - MEDICINE [place] [facility] [place] [facility] Mar 25, 2024 01:00 PM AMBULATORY - MEDICINE [place] [facility] [facility] Apr 06, 2024 10:30 AM AMBULATORY - MEDICINE [facility] Apr 07, 2024 03:30 PM AMBULATORY - NONE [place] [facility] [place] [facility] Apr 08, 2024 01:00 PM AMBULATORY - MEDICINE [place] [facility] [place] [facility] Apr 12, 2024 11:00 AM AMBULATORY - MEDICINE [place] [facility] [place] [facility] Apr 15, 2024 10:00 AM AMBULATORY - MEDICINE [place] [facility] [facility] Apr 19, 2024 11:00 AM AMBULATORY - MEDICINE [place] [facility] [facility] Apr 22, 2024 09:00 AM AMBULATORY - MEDICINE [place] [facility] Social History: Smoking Status (Most [...] 2023 09:12 AM VA-TOBACCO NEVER USED [place] [facility] Tobacco Use History This section includes a history of the smoking, or tobacco-related health factors, that were collected on or before the date of the Encounter. The data comes from the [place] facility where the Encounter took place. Date/Time Smoking Status/Tobacco Use Comment F darvin Aug 09, 2021 09:20 AM [place]TOBACCO [facility] Encounter Notes: All associated encounter notes This section contains the clinical notes associated to the Encounter. Date/Time Encounter Note(s) Provider Source Jan 26, 2024 11:00 AM RECREATIONAL THERA PY NOTE: LOCAL TITLE: YOGA WELLBEING STANDARD TITLE: RECREATIONAL THERAPY NOTE DATE OF NOTE: JAN 26, 2024@11:00 ENTRY DATE: JAN 29, 2024@08:20:11 AUTHOR: MARY KATE MOORE COSIGNER: URGENCY: STATUS: [...] tree, triangle pose, wide leg forward bend, [place] 2, Extended Side Angle Pose, Intense Side Stretch, [place] 1, plank, cobra, locust, downward facing dog, wisdom pose, contralateral limb raises, head to knee pose, bridge, reclined twist, and knees to chest; Systematic Relaxation; and Gratitude. Modifications were geared toward the Gallagher's individual needs and preferences. Gallagher was one of five participants in Group Yoga. He fully participated, practicing all the postures offered and modifying according to his needs. He practiced excellent self-care and used his breath as a tool to enhance his practice. He will return to class as his schedule allows. /yunior/ NINO IBANEZ-[employer] Sales Consultant Signed: 01/29/2024 08:23 MARY KATE MOORE [place] [facility]
--- OUTSIDE RECORDS SUMMARY | 2024-06-29 19:01 | XMS_ITS | Encounter Summary ---
Author Name [facility] [place] Address [address] [place] [address] Care Team Providers Care Fisher Reef Net Name Role Phone ABDIRAHMAN LAKE Primary Care [...] BASIC FAMIL Y Jun 24, 2009 112 [id number] [phone] ABHILASH GARAY PATIENT ANTHEM BCBS [place] F[place] PREFERRED PROVIDER ORGANIZAT ION (PPO) FEP BASIC FAM Jun 24, 2009 112 [id number] [phone] ABHILASH GARAY PATIENT ANTHEM BCBS [place] F[place] PREFERRED PROVIDER ORGANIZAT ION (PPO) FEP BASIC FAM Jun 24, 2009 112 [id number] [phone] ABHILASH GARAY PATIENT [place] PREFERRED PROVIDER ORGANIZAT ION (PPO) FEP BASIC FAM Jun 24, 2009 112 [id number] [phone] ABHILASH GARAY PATIENT [place] PREFERRED PROVIDER ORGANIZAT ION (PPO) FEP BASIC FAM Jun 24, 2009 112 [id number] [phone] ABHILASH GARAY PATIENT BCBS [place] FEP PREFERRED PROVIDER ORGANIZAT ION (PPO) BASIC FAMIL Y Jun 24, 2009 [id number] ABHILASH GARAY PATIENT [place] F[place] PREFERRED PROVIDER ORGANIZAT ION (PPO) BASIC FAMIL Y Jun 24, 2009 [id number] ABHILASH GARAY PATIENT [place] F[place] PREFERRED PROVIDER ORGANIZAT ION (PPO) BASIC FAMIL Y Jun 24, 2009 112 [id number] [phone] ABHILASH GARAY PATIENT [place] F[place] DENTAL DENTAL INSURANCE BASIC Jul 12, 2009 DENTAL [id number] ABHILASH GARAY PATIENT [place] FEP PREFERRED PROVIDER ORGANIZAT ION (PPO) BASIC FAMIL Y Jun 24, 2009 [id number] ABHILASH GARAY PATIENT [place] FEP ([id number]) PRESCRIPT ION FEPRX Jun 24, 2009 [id number] [phone] ABHILASH GARAY PATIENT [place] FEP BCBS PRESCRIPT ION CAREM ARK FEPRX PLAN Nov 21, 2021 [id number] ABHILASH GARAY PATIENT [employer] FEPRX PLAN PRESCRIPT ION CAREM ARK FEPRX Nov 21, 2021 [id number] ABHILASH GARAY PATIENT [employer]-F EP BCBS PRESCRIPT ION FEP CAREM ARK Nov 21, 2021 [id number] ABHILASH GARAY PATIENT [place]-F EP BCBS PRESCRIPT ION FEP Jun 23, 2010 [id number] ABHILASH GARAY PATIENT MEDICARE (WN) MEDICARE () PART A Feb 22, 2020 PART A [id number] ABHILASH GARAY PATIENT MEDICARE ([facility]) MEDICARE () PART A Feb 22, 2020 PART A [id number] ABHILASH GARAY PATIENT MEDICARE (WNR) MEDICARE (M) PART A Feb 22, 2020 PART A [id number] [phone] ABHILASH GARAY PATIENT MEDICARE (WNR) MEDICARE (M) PART A Feb 22, 2020 PART A [id number] ABHILASH GARAY PATIENT MEDICARE (WNR) MEDICARE (M) PART A Feb 22, 2020 PART A [id number] ABHILASH GARAY PATIENT Selected Encounter This section includes the information on record at [place] for the Encounter. Date/Time Encounter Type Encounter Description Reason Pro vider Source November 14, 2023 12:00 AM Outpatient Encounter COMMUNITY CARE [...] 18, 2023 11:00 AM AMBULATORY - MEDICINE [place] [facility] November 20, 2023 10:30 AM AMBULATORY - MEDICINE [place] [facility] November 20, 2023 01:00 PM AMBULATORY - MEDICINE [place] [facility] Nov 27, 2023 02:00 PM [facility] Dec 02, 2023 11:00 AM AMBULATORY - MEDICINE [place] C [place] [facility] Dec 02, 2023 02:30 PM AMBULATORY - MEDICINE [place] [facility] Dec 04, 2023 01:00 PM AMBULATORY - MEDICINE [place] C [place] [facility] Dec 08, 2023 11:00 AM AMBULATORY - MEDICINE [place] C [place] [facility] Dec 11, 2023 01:00 PM AMBULATORY - MEDICINE [place] C [place] [facility] Dec 15, 2023 11:00 AM AMBULATORY - MEDICINE [place] [facility] Dec 15, 2023 03:00 PM AMBULATORY - MEDICINE [place] C [place] [facility] Dec 17, 2023 02:00 PM AMBULATORY - [facility]AB [facility] Dec 18, 2023 01:00 PM AMBULATORY - MEDICINE [place] C [place] [facility] Dec 22, 2023 10:30 AM AMBULATORY - MEDICINE [facility] Dec 31, 2023 08:15 PM AMBULATORY - MEDICINE [place] C [place] [facility] Jan 01, 2024 01:00 PM AMBULATORY - MEDICINE [place] C [place] [facility] Jan 02, 2024 09:30 AM AMBULATORY - REHAB MEDICIN [facility] Jan 07, 2024 03:00 PM AMBULATORY - REHAB MEDICIN [facility] Jan 08, 2024 01:00 PM AMBULATORY - MEDICINE [place] C [place] [facility] Jan 09, 2024 11:00 AM AMBULATORY - MEDICINE [facility] Social History: Smoking Status (Most current) and [...] 08, 2023 09:12 AM [place]-TOBACCO NEVER USED [facility] Tobacco Use History This section includes a history of the smoking, or tobacco-related health factors, that were collected on or before the date of the Encounter. The data comes from the [place] facility where the Encounter took place. Date/Time Smoking Status/Tobacco Use Comment F darvin Aug 09, 2021 09:20 AM [place]TO[place]ACCO [facility] Encounter Notes: All associated encounter notes This section contains the clinical notes associated to the Encounter. Date/Time Encounter Note(s) Provider Source November 14, 2023 12:00 AM NONVA CONSULT: LOCAL TITLE: COMMUNITY CARE-CONSULT RESULT NOTE STANDARD TITLE: NONVA CONSULT DATE OF NOTE: NOVEMBER 14, 2023 ENTRY DATE: NOV 27, 2023@07:26:54 AUTHOR: DAHIANA MCMILLAN EXP COSIGNER: URGENCY: STATUS: COMPLETED VistA Imaging - Scanned Document SCANNED DOCUMENT SIGNATURE NOT REQUIRED Electronically Filed: 11/27/2023 by: DAHIANA JANG CNTRL [facility]
--- OUTSIDE RECORDS SUMMARY | 2024-06-29 19:01 | XMS_ITS | Encounter Summary ---
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 Name Role Phone ABDIRAHMAN LAKE Primary [...] BASIC FAMIL Y Jun 24, 2009 [id number] [phone] ABHILASH GARAY PATIENT ANTHEM BCBS [place] FEP PREFERRED PROVIDER ORGANIZAT ION (PPO) FEP BASIC FAM Jun 24, 2009 112 [id number] [phone] ABHILASH GARAY PATIENT ANTHEM BCBS [place] FEP PREFERRED PROVIDER ORGANIZAT ION (PPO) FEP BASIC FAM Jun 24, 2009 112 [id number] [phone] ABHILASH GARAY PATIENT ANTHEM [place] PREFERRED PROVIDER ORGANIZAT ION (PPO) FEP BASIC FAM Jun 24, 2009 112 [id number] [phone] ABHILASH GARAY PATIENT [place] F[place] PREFERRED PROVIDER ORGANIZAT ION (PPO) FEP BASIC FAM Jun 24, 2009 112 [id number] [phone] RUBI GARAYNETH PATIENT BCBS [place] FEP PREFERRED PROVIDER ORGANIZAT ION (PPO) BASIC FAMIL Y Jun 24, 2009 112 [id number] [phone] RUBI GARAYNETH PATIENT [place] FEP PREFERRED PROVIDER ORGANIZAT ION (PPO) BASIC FAMIL Y Jun 24, 2009 [id number] RUBI GARAYNETH PATIENT [place] F[place] PREFERRED PROVIDER ORGANIZAT ION (PPO) BASIC FAMIL Y Jun 24, 2009 112 [id number] [phone] RUBI GARAYNETH PATIENT [place] FEP DENTAL DENTAL INSURANCE BASIC Jul 12, 2009 DENTAL [id number] DEJAHDANIKARUBI ACEVESNETH PATIENT [place] F[place] PREFERRED PROVIDER ORGANIZAT ION (PPO) BASIC FAMIL Y Jun 24, 2009 [id number] [phone] ABHILASH GARAY PATIENT [place] FEP ([id number]) PRESCRIPT ION FEPRX Jun 24, 2009 [id number] [phone] ABHILASH GARAY PATIENT [place] FEP BCBS PRESCRIPT ION CAREM ARK FEPRX PLAN Nov 21, 2021 [id number] ABHILASH GARAY PATIENT [place] FEPRX PLAN PRESCRIPT ION CAREM ARK FEPRX Nov 21, 2021 [id number] ABHILASH GARAY PATIENT [place]-F EP BCBS PRESCRIPT ION FEP CAREM ARK Nov 21, 2021 [id number] ABHILASH GARAY PATIENT [place]-F EP BCBS PRESCRIPT ION FEP Jun 23, 2010 [id number] RUBI GARAYNETH PATIENT MEDICARE ([facility]) MEDICARE () PART A Feb 22, 2020 PART A [id number] ABHILASH GARAY PATIENT MEDICARE (WNR) MEDICARE (M) PART A Feb 22, 2020 PART A [id number] ABHILASH GARAY PATIENT MEDICARE (WNR) MEDICARE (M) PART A Feb 22, 2020 PART A [id number] ABHILASH GARAY PATIENT MEDICARE (WNR) MEDICARE (M) PART A Feb 22, 2020 PART A [id number] NV71 [id number] ABHILASH GARAY PATIENT MEDICARE (WNR) MEDICARE (M) PART A Feb 22, 2020 PART A [id number] [id number] [phone] ABHILASH GARAY PATIENT Selected Encounter This section includes the information on record at [place] for the Encounter. Date/Time Encounter Type Encounter Description Reason Pro vider Source Nov 28, 2023 10:00 AM Outpatient Encounter ADMIN PAT ACTIVTIES (MASNONCT) [...] 02, 2023 11:00 AM AMBULATORY - MEDICINE [facility]L [place] [facility] Dec 02, 2023 02:30 PM AMBULATORY - MEDICINE [place] C [place] [facility] Dec 04, 2023 01:00 PM AMBULATORY - MEDICINE [place] C [place] [facility] Dec 08, 2023 11:00 AM AMBULATORY - MEDICINE [place] C [place] [facility] Dec 11, 2023 01:00 PM AMBULATORY - MEDICINE [place] C [place] [facility] Dec 15, 2023 11:00 AM AMBULATORY - MEDICINE [place] C [place] [facility] Dec 15, 2023 03:00 PM AMBULATORY - MEDICINE [facility] N[facility]L [place] [facility] Dec 17, 2023 02:00 PM AMBULATORY - RE[place]AB MEDICIN [place] Dec 18, 2023 01:00 PM AMBULATORY - MEDICINE [place] C [place] [facility] Dec 22, 2023 10:30 AM AMBULATORY - MEDICINE [facility] Dec 31, 2023 08:15 PM AMBULATORY - MEDICINE [place] [facility] Jan 01, 2024 01:00 PM AMBULATORY - MEDICINE [place] [facility] Jan 02, 2024 09:30 AM AMBULATORY - REHAB MEDICIN [facility] Jan 07, 2024 03:00 PM AMBULATORY - REHAB MEDICIN [place] Jan 08, 2024 01:00 PM AMBULATORY - MEDICINE [place] C [place] [facility] Jan 09, 2024 11:00 AM AMBULATORY - MEDICINE [place] C [place] [facility] Jan 13, 2024 11:00 AM AMBULATORY - MEDICINE [place] [facility] Jan 14, 2024 03:00 PM AMBULATORY - REHAB MEDICIN [facility] Jan 21, 2024 03:00 PM AMBULATORY - REHAB MEDICIN [facility] Jan 28, 2024 11:00 AM AM[facility]ULATORY [facility] [place] [facility] Social History: Smoking Status [...] 08, 2023 09:12 AM [place]ACCO [facility] Tobacco Use History This section includes a history of the smoking, or tobacco-related health factors, that were collected on or before the date of the Encounter. The data comes from the [place] facility where the Encounter took place. Date/Time Smoking Status/Tobacco Use Comment F acjaved Aug 09, 2021 09:20 AM [place]-TOBACCO NEVER USED [place] [facility] Encounter Notes: All associated encounter notes This section contains the clinical notes associated to the Encounter. Date/Time Encounter Note(s) Provider Source Nov 28, 2023 10:00 AM ADMINISTRATIVE NOTE: LOCAL TITLE: CCC: SCHEDULING ADMINISTRATION STANDARD TITLE: ADMINISTRATIVE NOTE DATE OF NOTE: NOV 28, 2023@10:00:41 ENTRY DATE: NOV 28, 2023@10:00:42 AUTHOR: STEPHANY CHURCHILL EXP COSIGNER: URGENCY: STATUS: COMPLETED Patient Demographics Patient Name: ABHILASH GARAY Patient Primary Phone: [phone] Patient Primary Address: [address] [place] [id number] Patient : 1955 Patient Age: 68 Caller/Recipient Relation to Patient: Self Administrative Administrative Note Reason: Medication Renewal [place] Medications Refill/Renewal Request: Rx # - Medication Name - Dosage - SIG - Number of Refills - Facility - Status [id number] - POTASSIUM CITRATE 10MEQ SA TAB - 2 TABLETS - TAKE TWO TABLETS BY MOUTH TWICE DAILY - 0 - [facility] - [id number] - [place] is requesting urgent renewal for pickup today and would like a call back. stated that they are going to be out of this medication by Friday. Please refer to PHARMACY CUSTOMER CARE MEDICATION RENEWAL on 11/12/2023. /yunior/ STEPHANY CHURCHILL VISN [facility] Signed: 11/28/2023 10:00 Receipt Acknowledged By: 11/28/2023 10:35 /es/ FERCHO MELLO RN REGISTERED NURSE for RADHIKA GOMEZ 11/28/2023 13:37 /es/ EUGENIE SALVADOR LPN Licensed Practical Nurse 12/11/2023 08:30 /es/ VESTA BLISS MD PRIMARY CARE PHYSICIAN STEPHANY CHURCHILL [place] [facility]
--- OUTSIDE RECORDS SUMMARY | 2024-06-29 19:01 | XMS_ITS | Encounter Summary ---
Author Name [facility] [place] [facility] [place] Address [address] [place] [address] Care Team Providers Care Mangle Roll Operator Name Role Phone ABDIRAHMAN LAKE Primary [...] BASIC FAMIL Y Jun 24, 2009 [id number] [phone] ABHILASH GARAY PATIENT ANTHEM BCBS [place] F[place] PREFERRED PROVIDER ORGANIZAT ION (PPO) FEP BASIC FAM Jun 24, 2009 112 [id number] [phone] ABHILASH GARAY PATIENT ANTHEM BCBS [place] F[place] PREFERRED PROVIDER ORGANIZAT ION (PPO) FEP BASIC FAM Jun 24, 2009 112 [id number] [phone] ABHILASH GARAY PATIENT [place]THEM [place] PREFERRED PROVIDER ORGANIZAT ION (PPO) FEP BASIC FAM Jun 24, 2009 112 [id number] [phone] ABHILASH GARAY PATIENT [place] FEP PREFERRED PROVIDER ORGANIZAT ION (PPO) FEP BASIC FAM Jun 24, 2009 112 [id number] [phone] ABHILASH GARAY PATIENT [place]BS [place] FEP PREFERRED PROVIDER ORGANIZAT ION (PPO) BASIC FAMIL Y Jun 24, 2009 [id number] ABHILASH GARAY PATIENT [place] PREFERRED PROVIDER ORGANIZAT ION (PPO) BASIC FAMIL Y Jun 24, 2009 112 [id number] [phone] ABHILASH GARAY PATIENT [place] FEP PREFERRED PROVIDER ORGANIZAT ION (PPO) BASIC FAMIL Y Jun 24, 2009 112 [id number] ABHILASH GARAY PATIENT [place] F[place] DENTAL DENTAL INSURANCE BASIC Jul 12, 2009 DENTAL [id number] ABHILASH GARAY PATIENT [place] F[place] PREFERRED PROVIDER ORGANIZAT ION (PPO) BASIC FAMIL Y Jun 24, 2009 [id number] ABHILASH GARAY PATIENT [employer] FEP ([id number]) PRESCRIPT ION FEPRX Jun 24, 2009 [id number] [phone] ABHILASH GARAY PATIENT [employer] FEP BCBS PRESCRIPT ION CAREM ARK FEPRX PLAN Nov 21, 2021 [id number] ABHILASH GARAY PATIENT [employer] FEPRX PLAN PRESCRIPT ION CAREM ARK FEPRX Nov 21, 2021 [id number] ABHILASH GARAY PATIENT [employer]-F EP BCBS PRESCRIPT ION FEP CAREM ARK Nov 21, 2021 [id number] ABHILASH GARAY PATIENT [employer]-F EP BCBS PRESCRIPT ION FEP Jun 23, 2010 [id number] RUBI GARAYNETH PATIENT MEDICARE (WN) MEDICARE () PART A Feb 22, 2020 PART A [id number] ABHILASH GARAY PATIENT MEDICARE (WN) MEDICARE () PART A Feb 22, 2020 PART A [id number] ABHILASH GARAY PATIENT MEDICARE (WNR) MEDICARE (M) PART A Feb 22, 2020 PART A [id number] ABHILASH GARAY PATIENT MEDICARE (WNR) MEDICARE (M) PART A Feb 22, 2020 PART A [id number] ABHILASH GARAY PATIENT MEDICARE (WNR) MEDICARE (M) PART A Feb 22, 2020 PART A [id number] [phone] ABHILASH GARAY PATIENT Selected Encounter This section includes the information on record at [place] for the Encounter. Date/Time Encounter Type Encounter Description Reason Provider Source Jan 28, 2024 11:00 AM INFRARED THERAPY [facility] TREAT[facility] ICD-10-CM M79.674 Pain in right toe(s) JV RODAS HER M E Encounter Template Text not used by [place] Assessments - Encounter Diagnoses This section includes the primary and secondary diagnoses documented for the Encounter. Date/Time Primary/Secondary Diagnosis Diagnosis Name Provider Source Feb 29, 2024 07:20 AM PRIMARY Pain in right toe(s) MANOHARUNROSY,GRACE PHER M [place] [facility] [place] [facility] Feb 29, 2024 07:20 AM SECONDARY Pain in left knee MANOHARUNJOSE MANUEL GALLEGOSO PHER M [place] [facility] [place] [facility] Feb 29, 2024 07:20 AM SECONDARY Pain in right foot MANOHARUNJOSE MANUEL GALLEGOSO PHER M [place] [facility] [place] [facility] Feb 29, 2024 07:20 AM SECONDARY Pain in right knee MANOHARUNYA,GRACE PHER M [place] [facility] [place] [facility] Feb 29, 2024 07:20 AM SECONDARY Paresthesia of skin MANOHARUNJOSE MANUEL GALLEGOSO PHER M [place] [facility] [place] [facility] Feb 29, 2024 07:20 AM SECONDARY Polyneuropathy, unspecified MANOHARUNJOSE MANUEL GALLEGOSO PHER M [place] [facility] [place] [facility] Plan of [...] 2024 08:00 AM [facility]ULATORY - MEDICINE [facility] Feb 02, 2024 02:00 PM AMBULATORY - MEDICINE [facility] [place] [facility] Feb 04, 2024 11:00 AM AMBULATORY - MEDICINE [facility] [place] [facility] Feb 09, 2024 11:30 AM AMBULATORY - MEDICINE [facility] [place] [facility] Feb 09, 2024 02:00 PM AMBULATORY - MEDICINE [facility] [place] [facility] Feb 19, 2024 01:00 PM AMBULATORY - MEDICINE [facility] [place] [facility] Feb 25, 2024 11:00 AM AMBULATORY - NONE [facility] [place] [facility] Mar 04, 2024 01:00 PM AMBULATORY - MEDICINE [facility] [place] [facility] Mar 09, 2024 01:00 PM AMBULATORY - MEDICINE [facility] [place] [facility] Mar 11, 2024 11:00 AM AMBULATORY - MEDICINE [facility] [place] [facility] Mar 15, 2024 12:15 PM AMBULATORY - MEDICINE [facility] [place] [facility] Mar 25, 2024 01:00 PM AMBULATORY - MEDICINE [facility] [place] [facility] Apr 06, 2024 10:30 AM [facility]ULATORY - MEDICINE [facility] Apr 07, 2024 03:30 PM AMBULATORY - NONE [facility] [place] [facility] Apr 08, 2024 01:00 PM AMBULATORY - MEDICINE [facility] [place] [facility] Apr 12, 2024 11:00 AM AMBULATORY - MEDICINE [facility] [place] [facility] Apr 15, 2024 10:00 AM AMBULATORY - MEDICINE [facility] [place] [facility] Apr 19, 2024 11:00 AM AMBULATORY - MEDICINE [facility] [place] [facility] Apr 22, 2024 09:00 AM AMBULATORY - MEDICINE [facility] [place] [facility] May 03, 2024 01:00 PM AMBULATORY - MEDICINE [facility] Social History: Smoking Status (Most [...] 08, 2023 09:12 AM VA-TOBACCO NEVER USED [facility] Tobacco Use History This section includes a history of the smoking, or tobacco-related health factors, that were collected on or before the date of the Encounter. The data comes from the [place] facility where the Encounter took place. Date/Time Smoking Status/Tobacco Use Comment F acjaved Aug 09, 2021 09:20 AM VA-TOBACCO NEVER USED [facility] Encounter Notes: All associated encounter notes This section contains the clinical notes associated to the Encounter. Date/Time Encounter Note(s) Provider Source Jan 28, 2024 11:37 AM ACUPUNCTURE NOTE: LOCAL TITLE: ACUPUNCTURE TREATMENT STANDARD TITLE: ACUPUNCTURE NOTE DATE OF NOTE: JAN 28, 2024@11:37 ENTRY DATE: JAN 28, 2024@11:37:18 AUTHOR: DEE RODAS EXP COSIGNER: URGENCY: STATUS: [...] GREGG HARMON Benign essential hypertension I10. 03/27/2018 JEMIMAEMELY P Hyperlipidemia E78.5 06/27/2017 GREGG HARMON Onychomycosis of [...] HYPERLIPIDEMIA NEC/NOS 272.4 11/26/2010 GREGG HARMON Date Jan CC / HPI - [place] presents with 2 complaints. Primary complaint is low back pain. [place] states pain across the lumbar spine states [...] long or sometimes in bed at night. [place] states that the RLS can affect his [...] Anitha had his thyroid removed last year. [place] states he gets cold easily. Digestion: Anitha has history of GERD but no other issues. No discomfort reported. Bowel movements regular and unremarkable. Urine normal. RESPONSE TO PREVIOUS TREATMENT. Anitha reports last treatment at the end of November was again minimally helpful. [place] states he did have some relief in his knee pain but otherwise he has not been experiencing any relief in his neuropathy in his feet. Anitha states today that he wants to focus on his right foot his right middle toe is been very painful and numb. states right now he has no feeling in the toe whatsoever. _ OBJECTIVE General: . Patient in no [...] ]Pyonex Needle: remove prior to bathing per leather seasoner INFORMED CONSENT: Oral Consent obtained on Jan The patient was positioned comfortably. Oral consent [...] ]Torso: [ ]Hip / Glute Area: [ ] RUE: [ ] LUE: [X] RLE: Heding, Xiyan, GB 34, ST 36, GB 40, Bafeng [X] LLE: Heding, Xiyan, GB 34, ST 36, GB 40, [ ]Other therapies: [ ]Cupping: [ ]Cold [...] is required /yunior/ DEE RODAS LA.C DIPL.AC MONUMENT MASON Signed: 01/28/2024 11:41 DEE RODAS CN[facility]L [facility]
--- OUTSIDE RECORDS SUMMARY | 2024-06-29 19:01 | XMS_ITS | Encounter Summary ---
Author Name [facility] [place] [facility] [place] [place] [facility] [place] Address [address] [place] [address] Care Team Providers Care Kid Club Attendant Name Role Phone ABDIRAHMAN LAKE Primary [...] BASIC FAMIL Y Jun 24, 2009 [id number] [phone] ABHILASH GARAY PATIENT ANTHEM BCBS [place] F[place] PREFERRED PROVIDER ORGANIZAT ION (PPO) FEP BASIC FAM Jun 24, 2009 112 [id number] [phone] ABHILASH GARAY PATIENT ANTHEM BCBS [place] FEP PREFERRED PROVIDER ORGANIZAT ION (PPO) FEP BASIC FAM Jun 24, 2009 112 [id number] [phone] ABHILASH GARAY PATIENT [place] PREFERRED PROVIDER ORGANIZAT ION (PPO) FEP BASIC FAM Jun 24, 2009 112 [id number] [phone] ABHILASH GARAY PATIENT [place] PREFERRED PROVIDER ORGANIZAT ION (PPO) FEP BASIC FAM Jun 24, 2009 112 [id number] [phone] ABHILASH GARAY PATIENT [place] F[place] PREFERRED PROVIDER ORGANIZAT ION (PPO) BASIC FAMIL Y Jun 24, 2009 112 [id number] [phone] ABHILASH GARAY PATIENT [place] F[place] PREFERRED PROVIDER ORGANIZAT ION (PPO) BASIC FAMIL Y Jun 24, 2009 112 [id number] [phone] ABHILASH GARAY PATIENT [place] F[place] PREFERRED PROVIDER ORGANIZAT ION (PPO) BASIC FAMIL Y Jun 24, 2009 112 [id number] ABHILASH GARAY PATIENT [place] F[place] DENTAL DENTAL INSURANCE BASIC Jul 12, 2009 DENTAL [id number] [phone] ABHILASH GARAY PATIENT [place] PREFERRED PROVIDER ORGANIZAT ION (PPO) BASIC FAMIL Y Jun 24, 2009 [id number] ABHILASH GARAY PATIENT [employer] FEP ([id number]) PRESCRIPT ION FEPRX Jun 24, 2009 [id number] [phone] ABHILASH GARAY PATIENT [employer] FEP BCBS PRESCRIPT ION CAREM ARK FEPRX PLAN Nov 21, 2021 [id number] ABHILASH GARAY PATIENT [employer] FEPRX PLAN PRESCRIPT ION CAREM ARK FEPRX Nov 21, 2021 [id number] ABHILASH GARAY PATIENT [employer]-F EP BCBS PRESCRIPT ION FEP CAREM ARK Nov 21, 2021 [id number] ABHILASH GARAY PATIENT [employer]-F EP BCBS PRESCRIPT ION FEP Jun 23, 2010 [id number] RUBI GARAYNETH PATIENT MEDICARE (WN) MEDICARE (M) PART A Feb 22, 2020 PART A [id number] [phone] ABHILASH GARAY PATIENT MEDICARE (WN) MEDICARE (M) PART A Feb 22, 2020 PART A [id number] ABHILASH GARAY PATIENT MEDICARE (WNR) MEDICARE (M) PART A Feb 22, 2020 PART A [id number] [id number] ABHILASH GARAY PATIENT MEDICARE (WNR) MEDICARE (M) PART A Feb 22, 2020 PART A [id number] ABHILASH GARAY PATIENT MEDICARE (WNR) MEDICARE (M) PART A Feb 22, 2020 PART A [id number] ABHILASH GARAY PATIENT Selected Encounter This section includes the information on record at [place] for the Encounter. Date/Time Encounter Type Encounter Description Reason Pro vider Source IHE Encounter Template Text not used by [place]
--- OUTSIDE RECORDS SUMMARY | 2024-06-29 19:01 | XMS_ITS | Encounter Summary ---
Author Name [facility] [place] [facility] [place] [facility] [place] [facility] [place] Address [address] [place] [address] Care Team Providers Care Net Lead Architect Name Role Phone ABDIRAHMAN LAKE Primary [...] BASIC FAMIL Y Jun 24, 2009 [id number] [phone] ABHILASH GARAY PATIENT ANTHEM [place] F[place] PREFERRED PROVIDER ORGANIZAT ION (PPO) FEP BASIC FAM Jun 24, 2009 112 [id number] [phone] ABHILASH GARAY PATIENT ANTHEM [place] PREFERRED PROVIDER ORGANIZAT ION (PPO) FEP BASIC FAM Jun 24, 2009 112 [id number] [phone] ABHILASH GARAY PATIENT [place] PREFERRED PROVIDER ORGANIZAT ION (PPO) FEP BASIC FAM Jun 24, 2009 112 [id number] [phone] ABHILASH GARAY PATIENT [place] PREFERRED PROVIDER ORGANIZAT ION (PPO) FEP BASIC FAM Jun 24, 2009 112 [id number] [phone] ABHILASH GARAY PATIENT [place] PREFERRED PROVIDER ORGANIZAT ION (PPO) BASIC FAMIL Y Jun 24, 2009 [id number] ABHILASH GARAY PATIENT [place] F[place] PREFERRED PROVIDER ORGANIZAT ION (PPO) BASIC FAMIL Y Jun 24, 2009 [id number] ABHILASH GARAY PATIENT [place] F[place] PREFERRED PROVIDER ORGANIZAT ION (PPO) BASIC FAMIL Y Jun 24, 2009 112 [id number] [phone] ABHILASH GARAY PATIENT [place] F[place] DENTAL DENTAL INSURANCE BASIC Jul 12, 2009 DENTAL [id number] ABHILASH GARAY PATIENT [place] PREFERRED PROVIDER ORGANIZAT ION (PPO) BASIC FAMIL Y Jun 24, 2009 [id number] [phone] ABHILASH GARAY PATIENT [employer] FEP ([id number]) PRESCRIPT ION FEPRX Jun 24, 2009 [id number] [phone] ABHILASH GARAY PATIENT [employer] FEP BCBS PRESCRIPT ION CAREM ARK FEPRX PLAN Nov 21, 2021 [id number] ABHILASH GARAY PATIENT [employer] FEPRX PLAN PRESCRIPT ION CAREM ARK FEPRX Nov 21, 2021 [id number] ABHILASH GARAY PATIENT [employer]-F EP BCBS PRESCRIPT ION FEP CAREM ARK Nov 21, 2021 [id number] ABHILASH GARAY PATIENT [employer]-F EP BCBS PRESCRIPT ION FEP Jun 23, 2010 [id number] RUBI GARAYNETH PATIENT MEDICARE (WN) MEDICARE () PART A Feb 22, 2020 PART A [id number] [phone] ABHILASH GARAY PATIENT MEDICARE (WN) MEDICARE () PART A Feb 22, 2020 PART A [id number] ABHILASH GARAY PATIENT MEDICARE (WNR) MEDICARE (M) PART A Feb 22, 2020 PART A [id number] ABHILASH GARAY PATIENT MEDICARE (WNR) MEDICARE (M) PART A Feb 22, 2020 PART A [id number] ABHILASH GARAY PATIENT MEDICARE (WNR) MEDICARE (M) PART A Feb 22, 2020 PART A [id number] NV71 [phone] ABHILASH GARAY PATIENT Selected Encounter This section includes the information on record at [place] for the Encounter. Date/Time Encounter Type Encounter Description Reason Provider Source November 20, 2023 10:30 AM INFRARED THERAPY CI TREATMENT ICD-10-CM M79.675 Pain in left toe(s) MANOHARBRADLEYJOSE MANUEL GALLEGOSALEYDA Brady [facility] Encounter Template Text not used by [place] Assessments - Encounter Diagnoses This section includes the primary and secondary diagnoses documented for the Encounter. Date/Time Primary/Secondary Diagnosis Diagnosis Name Provider Source November 20, 2023 11:42 AM PRIMARY Pain in left toe(s) GRACE RODAS PHER M [place] [facility] [place] [facility] November 20, 2023 11:42 AM SECONDARY Low back pain, unspecified MANOHARBRADLEYGRACE GALLEGOS PHER M [place] [facility] [place] [facility] November 20, 2023 11:42 AM SECONDARY Pain in right foot JESIGRACE PHER M [place] [facility] [place] [facility] November 20, 2023 11:42 AM SECONDARY Pain in right toe(s) MANOHARBRADLEYGRACE GALLEGOS PHER M [place] [facility] [place] [facility] November 20, 2023 11:42 AM SECONDARY Paresthesia of skin MANOHARMIKHAILGRACE PHER M [place] [facility] [place] [facility] Plan of Treatment: Future Appointments [...] 2023 02:00 PM [facility]ULATORY - MEDICINE [facility] Dec 02, 2023 11:00 AM AMBULATORY - MEDICINE [facility] [place] [facility] Dec 02, 2023 02:30 PM AMBULATORY - MEDICINE [facility] [place] [facility] Dec 04, 2023 01:00 PM AMBULATORY - MEDICINE [facility] [place] [facility] Dec 08, 2023 11:00 AM AMBULATORY - MEDICINE [facility] [place] [facility] Dec 11, 2023 01:00 PM AMBULATORY - MEDICINE [facility] [place] [facility] Dec 15, 2023 11:00 AM AMBULATORY - MEDICINE [facility] [place] [facility] Dec 15, 2023 03:00 PM AMBULATORY - MEDICINE [facility] [place] [facility] Dec 17, 2023 02:00 PM AMBULATORY - [facility]AB [facility] Dec 18, 2023 01:00 PM AMBULATORY - MEDICINE [facility] [place] [facility] Dec 22, 2023 10:30 [facility] Dec 31, 2023 08:15 PM AMBULATORY - MEDICINE [place] [facility] [place] [facility] Jan 01, 2024 01:00 PM AMBULATORY - MEDICINE [place] [facility] [place] [facility] Jan 02, 2024 09:30 AM AMBULATORY - RE[facility] Jan 07, 2024 03:00 PM AM[facility]ULATORY - [facility] Jan 08, 2024 01:00 PM AMBULATORY - MEDICINE [facility] [place] [facility] Jan 09, 2024 11:00 AM AMBULATORY - MEDICINE [facility] [place] [facility] Jan 13, 2024 11:00 AM AMBULATORY - MEDICINE [facility] [place] [facility] Jan 14, 2024 03:00 PM AMBULATORY - [facility] Jan 21, 2024 03:00 PM AMBULATORY - REHAB MEDICIN [facility] Social History: Smoking Status (Most current) [...] 08, 2023 09:12 AM VA-TOBACCO NEVER USED [facility] Tobacco Use History This section includes a history of the smoking, or tobacco-related health factors, that were collected on or before the date of the Encounter. The data comes from the [place] facility where the Encounter took place. Date/Time Smoking Status/Tobacco Use Comment F darvin Aug 09, 2021 09:20 AM VA-TOBACCO NEVER USED [facility] Encounter Notes: All associated encounter notes This section contains the clinical notes associated to the Encounter. Date/Time Encounter Note(s) Provider Source November 20, 2023 11:38 AM ACUPUNCTURE NOTE: LOCAL TITLE: ACUPUNCTURE TREATMENT STANDARD TITLE: ACUPUNCTURE NOTE DATE OF NOTE: NOVEMBER 20, 2023@11:38 ENTRY DATE: NOVEMBER 20, 2023@11:38:15 AUTHOR: DEE RODAS EXP COSIGNER: URGENCY: STATUS: [...] lumbar level that radiates into both hips. [place] states he does get radiation down posterior [...] has had since he was a kid. [place] states his legs feel agitated if he [...] Anitha had his thyroid removed last year. [place] states he gets cold easily. Digestion: Anitha has history of GERD but no other issues. No discomfort reported. Bowel movements regular and unremarkable. Urine normal. RESPONSE TO PREVIOUS TREATMENT. Anitha states the last treatment had some minor effectiveness for his foot and hip pain. Effect was short-lived and Anitha reports that he has had a very intense spike of pain in his left great toe with the rain last night and this morning. Anitha is visibly hobbling while walking. Anitha finds it painful to put full weight on his left foot. _ OBJECTIVE General: . Patient in no [...] ]Pyonex Needle: remove prior to bathing per motorcycle racer INFORMED CONSENT: Oral Consent obtained on October [...] 4, KD 5, SP 2, SP 3, LR 2, SP 2 [X]LLE: UB 65, GB 41, GB 40, GB 34, LR 2, SP 3, SP 2 [ ]Other therapies: [ ]Cupping: [ ]Cold Laser [ ]Peizo Pen: [ ]External Qigong: [X]TDP Lamp:left foot 30 min [ ]Tui Na: [ ]Guasha: [...] is required /yunior/ DEE RODAS LA.C DIPL.AC SNAGGER Signed: 11/20/2023 11:42 DEE RODAS CNTRL [facility]
--- OUTSIDE RECORDS SUMMARY | 2024-06-29 19:01 | XMS_ITS | Encounter Summary ---
Author Name [facility] [place] [facility] [place] Organization [facility] [place] [facility] [place] Address [address] [place] [address] Care Team Providers Care Focusing Machine Operator Name Role Phone ABDIRAHMAN LAKE [...] BASIC FAMIL Y Jun 24, 2009 112 [id number] [phone] ABHILASH GARAY PATIENT ANTHEM BCBS [place] FEP PREFERRED PROVIDER ORGANIZAT ION (PPO) FEP BASIC FAM Jun 24, 2009 112 [id number] [phone] ABHILASH GARAY PATIENT ANTHEM BCBS [place] F[place] PREFERRED PROVIDER ORGANIZAT ION (PPO) FEP BASIC FAM Jun 24, 2009 112 [id number] [phone] ABHILASH GARAY PATIENT [place]M [place] PREFERRED PROVIDER ORGANIZAT ION (PPO) FEP BASIC FAM Jun 24, 2009 112 [id number] [phone] ABHILASH GARAY PATIENT [place]BS [place] F[place] PREFERRED PROVIDER ORGANIZAT ION (PPO) FEP BASIC FAM Jun 24, 2009 112 [id number] [phone] ABHILASH GARAY PATIENT BCBS [place] FEP PREFERRED PROVIDER ORGANIZAT ION (PPO) BASIC FAMIL Y Jun 24, 2009 112 [id number] ABHILASH GARAY PATIENT [place] FEP PREFERRED PROVIDER ORGANIZAT ION (PPO) BASIC FAMIL Y Jun 24, 2009 112 [id number] ABHILASH GARAY PATIENT [place] FEP PREFERRED PROVIDER ORGANIZAT ION (PPO) BASIC FAMIL Y Jun 24, 2009 [id number] ABHILASH GARAY PATIENT [place] FEP DENTAL DENTAL INSURANCE BASIC Jul 12, 2009 DENTAL [id number] 62 ABHILASH GARAY PATIENT [place] FEP PREFERRED PROVIDER ORGANIZAT ION (PPO) BASIC FAMIL Y Jun 24, 2009 [id number] ABHILASH GARAY PATIENT [employer] FEP ([id number]) PRESCRIPT ION FEPRX Jun 24, 2009 [id number] [phone] ABHILASH GARAY PATIENT [place] FEP BCBS PRESCRIPT ION CAREM ARK FEPRX PLAN Nov 21, 2021 [id number] ABHILASH GARAY PATIENT [employer] FEPRX PLAN PRESCRIPT ION CAREM ARK FEPRX Nov 21, 2021 [id number] ABHILASH GARAY PATIENT [place]-F EP BCBS PRESCRIPT ION FEP CAREM ARK Nov 21, 2021 [id number] ABHILASH GARAY PATIENT [place]-F EP BCBS PRESCRIPT ION FEP Jun 23, 2010 [id number] ABHILASH GARAY PATIENT MEDICARE (WN) MEDICARE () PART A Feb 22, 2020 PART A [id number] [phone] ABHILASH GARAY PATIENT MEDICARE ([facility]) MEDICARE () PART A Feb 22, 2020 PART A [id number] ABHILASH GARAY PATIENT MEDICARE (WNR) MEDICARE (M) PART A Feb 22, 2020 PART A [id number] ABHILASH GARAY PATIENT MEDICARE (WNR) MEDICARE (M) PART A Feb 22, 2020 PART A [id number] [id number] [phone] ABHILASH GARAY PATIENT MEDICARE (WNR) MEDICARE (M) PART A Feb 22, 2020 PART A [id number] ABHILASH GARAY PATIENT Selected Encounter This section includes the information on record at OR for the Encounter. Date/Time Encounter Type Encounter Description Reason Pro vider Source Oct 17, 2023 11:00 AM Outpatient Encounter COMMUNITY CARE CONSULT IHE [...] 20, 2023 11:00 AM AMBULATORY - MEDICINE [facility] [place] [facility] October 23, 2023 01:00 PM AMBULATORY - MEDICINE [facility] [place] [facility] October 27, 2023 11:00 AM AMBULATORY - MEDICINE [place] C [place] [facility] November 03, 2023 11:00 AM AMBULATORY - MEDICINE [place] C [place] [facility] November 03, 2023 01:00 PM AMBULATORY - MEDICINE [place] C [place] [facility] November 06, 2023 01:00 PM AMBULATORY - MEDICINE [place] C [place] [facility] November 06, 2023 02:00 PM AMBULATORY - MEDICINE [facility] [place] [facility] November 10, 2023 11:00 AM AMBULATORY - MEDICINE [place] C [place] [facility] November 13, 2023 10:30 AM AMBULATORY - MEDICINE [facility] [place] [facility] November 18, 2023 11:00 AM AMBULATORY - MEDICINE [facility] [place] [facility] November 20, 2023 10:30 AM AMBULATORY - MEDICINE [facility] [place] [place] [facility] November 20, 2023 01:00 PM AMBULATORY - MEDICINE [facility] [place] [place] [facility] Nov 27, 2023 02:00 PM AMBULATORY - MEDICINE [place] Dec 02, 2023 11:00 AM AMBULATORY - MEDICINE [facility] [place] [facility] Dec 02, 2023 02:30 PM AMBULATORY - MEDICINE [facility] [place] [facility] Dec 04, 2023 01:00 PM AMBULATORY - MEDICINE [facility] [place] [facility] Dec 08, 2023 11:00 AM AMBULATORY - MEDICINE [facility] [place] [facility] Dec 11, 2023 01:00 PM AMBULATORY - MEDICINE [facility] [place] [facility] Dec 15, 2023 11:00 AM AMBULATORY - MEDICINE [facility] [place] [facility] Dec 15, 2023 03:00 PM AMBULATORY - MEDICINE [facility] C [place] [facility] Social History: Smoking Status (Most [...] 09:12 AM VA-TOBACCO NEVER USED [facility] Tobacco Use History This section includes a history of the smoking, or tobacco-related health factors, that were collected on or before the date of the Encounter. The data comes from the [place] facility where the Encounter took place. Date/Time Smoking Status/Tobacco Use Comment F darvin Aug 09, 2021 09:20 AM [facility]
--- OUTSIDE RECORDS SUMMARY | 2024-06-29 19:01 | XMS_ITS | Encounter Summary ---
Author Name [facility] of [facility] [place] Organization [facility] [place] Address [address] [place] [address] Care Team Providers Care Carding Supervisor Name Role Phone ABDIRAHMAN LAKE Primary [...] BASIC FAMIL Y Jun 24, 2009 112 [id number] [phone] ABHILASH GARAY PATIENT ANTHEM BCBS [place] FEP PREFERRED PROVIDER ORGANIZAT ION (PPO) FEP BASIC FAM Jun 24, 2009 112 [id number] [phone] ABHILASH GARAY PATIENT ANTHEM [place]BS [place] F[place] PREFERRED PROVIDER ORGANIZAT ION (PPO) FEP BASIC FAM Jun 24, 2009 112 [id number] [phone] ABHILASH GARAY PATIENT [place] PREFERRED PROVIDER ORGANIZAT ION (PPO) FEP BASIC FAM Jun 24, 2009 112 [id number] [phone] ABHILASH GARAY PATIENT [place] F[place] PREFERRED PROVIDER ORGANIZAT ION (PPO) FEP BASIC FAM Jun 24, 2009 112 [id number] [phone] ABHILASH GARAY PATIENT BCBS [place] FEP PREFERRED PROVIDER ORGANIZAT ION (PPO) BASIC FAMIL Y Jun 24, 2009 112 [id number] [phone] ABHILASH GARAY PATIENT [place] FEP PREFERRED PROVIDER ORGANIZAT ION (PPO) BASIC FAMIL Y Jun 24, 2009 112 [id number] [phone] ABHILASH GARAY PATIENT [place] FEP PREFERRED PROVIDER ORGANIZAT ION (PPO) BASIC FAMIL Y Jun 24, 2009 112 [id number] ABHILASH GARAY PATIENT [place] F[place] DENTAL DENTAL INSURANCE BASIC Jul 12, 2009 DENTAL [id number] [phone] ABHILASH GARAY PATIENT [place] F[place] PREFERRED PROVIDER ORGANIZAT ION (PPO) BASIC FAMIL Y Jun 24, 2009 112 [id number] ABHILASH GARAY PATIENT [employer] FEP ([id number]) PRESCRIPT ION FEPRX Jun 24, 2009 [id number] [phone] ABHILASH GARAY PATIENT [place] FEP BCBS PRESCRIPT ION CAREM ARK FEPRX PLAN Nov 21, 2021 [id number] ABHILASH GARAY PATIENT [employer] FEPRX PLAN PRESCRIPT ION CAREM ARK FEPRX Nov 21, 2021 [id number] ABHILASH GARAY PATIENT [employer]-F EP BCBS PRESCRIPT ION FEP CAREM ARK Nov 21, 2021 [id number] ABHILASH GARAY PATIENT [place]-F EP BCBS PRESCRIPT ION FEP Jun 23, 2010 [id number] RUBI GARAYNETH PATIENT MEDICARE (WN) MEDICARE (M) PART A Feb 22, 2020 PART A [id number] [phone] ABHILASH GARAY PATIENT MEDICARE (WN) MEDICARE (M) PART A Feb 22, 2020 PART A [id number] [id number] [phone] ABHILASH GARAY PATIENT MEDICARE (WNR) MEDICARE (M) PART A Feb 22, 2020 PART A [id number] [id number] [phone] ABHILASH GRAAY PATIENT MEDICARE (WNR) MEDICARE (M) PART A Feb 22, 2020 PART A [id number] [id number] [phone] ABHILASH GARAY PATIENT MEDICARE (WNR) MEDICARE (M) PART A Feb 22, 2020 PART A [id number] ABHILASH GARAY PATIENT Selected Encounter This section includes the information on record at [place] for the Encounter. Date/Time Encounter Type Encounter Description Reason Pro vider Source IHE Encounter Template Text not used by VA
--- OUTSIDE RECORDS SUMMARY | 2024-06-29 19:01 | XMS_ITS ---
Author Name Department of Veter[facility] ([place]) Organization Department of [facility] [place] Address [address] [place] [address] Care Team Providers Care Cast Iron Drain Pipe Layer Name Role Phone ABDIRAHMAN LAKE Primary [...] BASIC FAMIL Y Jun 24, 2009 112 [id number] [phone] ABHILASH GARAY PATIENT ANTHEM BCBS [place] FEP PREFERRED PROVIDER ORGANIZAT ION (PPO) FEP BASIC FAM Jun 24, 2009 112 [id number] [phone] ABHILASH GARAY PATIENT ANTHEM BCBS [place] FEP PREFERRED PROVIDER ORGANIZAT ION (PPO) FEP BASIC FAM Jun 24, 2009 112 [id number] [phone] ABHILASH GARAY PATIENT ANTHEM [place] PREFERRED PROVIDER ORGANIZAT ION (PPO) FEP BASIC FAM Jun 24, 2009 112 [id number] [phone] ABHILASH GARAY PATIENT [place] F[place] PREFERRED PROVIDER ORGANIZAT ION (PPO) FEP BASIC FAM Jun 24, 2009 112 [id number] [phone] ABHILASH GARAY PATIENT BCBS [place] FEP PREFERRED PROVIDER ORGANIZAT ION (PPO) BASIC FAMIL Y Jun 24, 2009 [id number] ABHILASH GARAY PATIENT [place] FEP PREFERRED PROVIDER ORGANIZAT ION (PPO) BASIC FAMIL Y Jun 24, 2009 112 [id number] [phone] ABHILASH GARAY PATIENT [place] FEP PREFERRED PROVIDER ORGANIZAT ION (PPO) BASIC FAMIL Y Jun 24, 2009 112 [id number] [phone] ABHILASH GARAY PATIENT [place] F[place] DENTAL DENTAL INSURANCE BASIC Jul 12, 2009 DENTAL [id number] [phone] ABHILASH GARAY PATIENT [place] F[place] PREFERRED PROVIDER ORGANIZAT ION (PPO) BASIC FAMIL Y Jun 24, 2009 [id number] ABHILASH GARAY PATIENT [employer] FEP ([id number]) PRESCRIPT ION FEPRX Jun 24, 2009 [id number] [phone] ABHILASH GARAY PATIENT [place] FEP BCBS PRESCRIPT ION CAREM ARK FEPRX PLAN Nov 21, 2021 [id number] ABHILASH GARAY PATIENT [employer] FEPRX PLAN PRESCRIPT ION CAREM ARK FEPRX Nov 21, 2021 [id number] ABHILASH GARAY PATIENT [employer]-F EP BCBS PRESCRIPT ION FEP CAREM ARK Nov 21, 2021 [id number] ABHILASH GARAY PATIENT [employer]-F EP BCBS PRESCRIPT ION FEP Jun 23, 2010 [id number] ABHILASH GARAY PATIENT MEDICARE (WN) MEDICARE () PART A Feb 22, 2020 PART A [id number] ABHILASH GARAY PATIENT MEDICARE ([facility]) MEDICARE () PART A Feb 22, 2020 PART A [id number] ABHILASH GARAY PATIENT MEDICARE (WNR) MEDICARE (M) PART A Feb 22, 2020 PART A [id number] ABHILASH GARAY PATIENT MEDICARE (WNR) MEDICARE (M) PART A Feb 22, 2020 PART A [id number] ABHILASH GARAY PATIENT MEDICARE (WNR) MEDICARE (M) PART A Feb 22, 2020 PART A [id number] ABHILASH GARAY PATIENT Selected Encounter This section includes the information on record at [place] for the Encounter. Date/Time Encounter Type Encounter Description Reason Pro vider Source Nov 27, 2023 02:21 PM Outpatient Encounter PRIMARY CARE/MEDICINE IHE Encounter Template Text not used by MD Plan of Treatment: Future Appointments (+ 6 months) and Future Tests (+/- 45 days) The Plan of Treatment section includes [facility] care activities for the [facility] This section includes future appointments and future [...] 02, 2023 11:00 AM AMBULATORY - MEDICINE [facility] [place] [facility] Dec 02, 2023 02:30 PM AMBULATORY - MEDICINE [facility] [facility] Dec 04, 2023 01:00 PM AMBULATORY - MEDICINE MD C [place] [facility] Dec 08, 2023 11:00 AM AMBULATORY - MEDICINE MD C [place] [facility] Dec 11, 2023 01:00 PM AMBULATORY - MEDICINE MD C [place] [facility] Dec 15, 2023 11:00 AM AMBULATORY - MEDICINE MD C [place] [facility] Dec 15, 2023 03:00 PM AMBULATORY - MEDICINE [facility] [place] [place] [facility] Dec 17, 2023 02:00 PM AMBULATORY - [facility]AB [facility] [place] Dec 18, 2023 01:00 PM AMBULATORY - MEDICINE [place] [facility] [place] [facility] Dec 22, 2023 10:30 AM [facility] Dec 31, 2023 08:15 PM AMBULATORY - MEDICINE [place] [facility] [place] [facility] Jan 01, 2024 01:00 PM AMBULATORY - MEDICINE [place] [facility] [place] [facility] Jan 02, 2024 09:30 AM AMBULATORY - REHAB [facility] [place] Jan 07, 2024 03:00 PM AMBULATORY - REHAB [facility] [place] Jan 08, 2024 01:00 PM AMBULATORY - MEDICINE [place] C [place] [facility] Jan 09, 2024 11:00 AM AMBULATORY - MEDICINE [place] C [place] [facility] Jan 13, 2024 11:00 AM AMBULATORY - MEDICINE [place] [facility] [place] [facility] Jan 14, 2024 03:00 PM AMBULATORY - REHAB [facility]IN [facility] [place] Jan 21, 2024 03:00 PM AMBULATORY - REHAB [facility]IN [facility] [place] Jan 28, 2024 11:00 AM AM[facility]ULATORY [facility] Social History: Smoking Status (Most [...] 08, 2023 09:12 AM VA-TOBACCO NEVER USED [facility] Tobacco Use History This section includes a history of the smoking, or tobacco-related health factors, that were collected on or before the date of the Encounter. The data comes from the [place] facility where the Encounter took place. Date/Time Smoking Status/Tobacco Use Comment F acjaved Aug 09, 2021 09:20 AM [facility] Encounter Notes: All associated encounter notes This section contains the clinical notes associated to the Encounter. Date/Time Encounter Note(s) Provider Source Nov 27, 2023 02:21 PM ADMINISTRATIVE NOT E: LOCAL TITLE: ADMINISTRATIVE NOTE STANDARD TITLE: ADMINISTRATIVE NOTE DATE OF NOTE: NOV 27, 2023@14:21 ENTRY DATE: NOV 27, 2023@14:21:45 AUTHOR: LINDA LOPEZ COSIGNER: URGENCY: STATUS: COMPLETED THIS WAREHOUSER CALLED TO REMIND OF APPT WITH CWM/SO/PACT EIGHT PROVIDER AT 14:00 TODAY. NO ANSWER, LEFT MESSAGE FOR . /yunior/ LUNA LOPEZ ADVANCED PRINT LINE INSPECTOR Signed: 11/27/2023 14:22 LUNA LOPEZ [place]
--- OUTSIDE RECORDS SUMMARY | 2024-06-29 19:01 | XMS_ITS | Encounter Summary ---
Author Name [facility] [place] [facility] [place] Address [address] [place] [address] Care Team Providers Care Organizational Effectiveness Director Name Role Phone ABDIRAHMAN LAKE Primary [...] BASIC FAMIL Y Jun 24, 2009 [id number] [phone] ABHILASH GARAY PATIENT ANTHEM BCBS [place] FEP PREFERRED PROVIDER ORGANIZAT ION (PPO) FEP BASIC FAM Jun 24, 2009 112 [id number] [phone] ABHILASH GARAY PATIENT ANTHEM [place] F[place] PREFERRED PROVIDER ORGANIZAT ION (PPO) FEP BASIC FAM Jun 24, 2009 112 [id number] [phone] ABHILASH GARAY PATIENT [place] PREFERRED PROVIDER ORGANIZAT ION (PPO) FEP BASIC FAM Jun 24, 2009 112 [id number] [phone] ABHILASH GARAY PATIENT [place] PREFERRED PROVIDER ORGANIZAT ION (PPO) FEP BASIC FAM Jun 24, 2009 112 [id number] [phone] ABHILASH GARAY PATIENT [place]BS [place] FEP PREFERRED PROVIDER ORGANIZAT ION (PPO) BASIC FAMIL Y Jun 24, 2009 [id number] ABHILASH GARAY PATIENT [place] FEP PREFERRED PROVIDER ORGANIZAT ION (PPO) BASIC FAMIL Y Jun 24, 2009 112 [id number] [phone] ABHILASH GARAY PATIENT [place] FEP PREFERRED PROVIDER ORGANIZAT ION (PPO) BASIC FAMIL Y Jun 24, 2009 112 [id number] [phone] ABHILASH GARAY PATIENT [place] F[place] DENTAL DENTAL INSURANCE BASIC Jul 12, 2009 DENTAL [id number] [phone] ABHILASH GARAY PATIENT [place] F[place] PREFERRED PROVIDER ORGANIZAT ION (PPO) BASIC FAMIL Y Jun 24, 2009 [id number] ABHILASH GARAY PATIENT [employer] FEP ([id number]) PRESCRIPT ION FEPRX Jun 24, 2009 [id number] [phone] ABHILASH GARAY PATIENT [place] FEP BCBS PRESCRIPT ION CAREM ARK FEPRX PLAN Nov 21, 2021 [id number] ABHILASH GARAY PATIENT [employer] FEPRX PLAN PRESCRIPT ION CAREM ARK FEPRX Nov 21, 2021 [id number] ABHILASH GARAY PATIENT [employer]-F EP BCBS PRESCRIPT ION FEP CAREM ARK Nov 21, 2021 [id number] ABHILASH GARAY PATIENT [place]-F EP BCBS PRESCRIPT ION FEP Jun 23, 2010 [id number] ABHILASH GARAY PATIENT MEDICARE (WN) MEDICARE () PART A Feb 22, 2020 PART A [id number] [phone] ABHILASH GARAY PATIENT MEDICARE ([facility]) MEDICARE () PART A Feb 22, 2020 PART A [id number] NV71 [phone] ABHILASH GARAY PATIENT MEDICARE (WNR) MEDICARE (M) PART A Feb 22, 2020 PART A [id number] ABHILASH GARAY PATIENT MEDICARE (WNR) MEDICARE (M) PART A Feb 22, 2020 PART A [id number] [id number] [phone] ABHILASH GARAY PATIENT MEDICARE (WNR) MEDICARE (M) PART A Feb 22, 2020 PART A [id number] [id number] [phone] ABHILASH GARAY PATIENT Selected Encounter This section includes the information on record at [place] for the Encounter. Date/Time Encounter Type Encounter Description Reason Pro vider Source Jan 30, 2024 10:14 AM Outpatient Encounter TELEPHONE PRIMARY CARE IHE Encounter Template Text not used by [place] Plan of Treatment: Future Appointments (+ 6 [...] Date/Time Appointment Type Appointme nt Facility Name Feb 02, 2024 02:00 PM AMBULATORY - MEDICINE [place] [facility] [place] [facility] Feb 04, 2024 11:00 AM AMBULATORY - MEDICINE [place] C [place] [facility] Feb 09, 2024 11:30 AM AMBULATORY - MEDICINE [place] C [place] [facility] Feb 09, 2024 02:00 PM AMBULATORY - MEDICINE [place] C [place] [facility] Feb 19, 2024 01:00 PM AMBULATORY - MEDICINE [place] C [place] [facility] Feb 25, 2024 11:00 AM AMBULATORY - NONE [facility] [place] [facility] Mar 04, 2024 01:00 PM AMBULATORY - MEDICINE [place] C [place] [facility] Mar 09, 2024 01:00 PM AMBULATORY - MEDICINE [place] C [facility] [place] [facility] [...] 2024 10:30 AM [facility] Apr 07, 2024 03:30 PM AMBULATORY [...] C [place] [facility] May 03, 2024 01:00 PM AMBULATORY - MEDICINE [place] [facility] [place] [facility] May 17, 2024 01:00 PM AMBULATORY - REHAB [facility] Social History: Smoking Status (Most current) [...] 08, 2023 09:12 AM VA-TOBACCO NEVER USED [facility] Tobacco Use History This section includes a history of the smoking, or tobacco-related health factors, that were collected on or before the date of the Encounter. The data comes from the [place] facility where the Encounter took place. Date/Time Smoking Status/Tobacco Use Comment Gilberto boston Aug 09, 2021 09:20 AM VA-TOBACCO NEVER USED [facility] Encounter Notes: All associated encounter notes This section contains the clinical notes associated to the Encounter. Date/Time Encounter Note(s) Provider Source Jan 30, 2024 03:45 PM ADDENDUM: LOCAL TITLE: Addendum STANDARD TITLE: ADDENDUM DATE OF NOTE: JAN 30, 2024@15:45:38 ENTRY DATE: JAN 30, 2024@15:45:39 AUTHOR: BLAISE RIDDLE COSIGNER: URGENCY: STATUS: COMPLETED Called to discuss his machine issue. The device was troubleshooted with and the problem persists. 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 Troy is anxious about not having the machine but understands there is no way to get him a replacement device until Friday. /es/ BLAISE RIDDLE BA, DYE WEIGHER, RPFT RESPIRATORY THERAPIST Signed: 01/30/2024 15:50 Receipt Acknowledged By: 02/02/2024 09:46 /yunior/ ALMA ROSA CLARK RESPIRATORY THERAPIST === --- Original Document --- 01/30/24 TELEPHONE NOTE/SPECIALTY CLINIC: Troy has a RESMED AIR SENSE 2 machine. He states the green light comes on, however the screen doesn't come on. Please call to discuss. PH: [phone] /es/ MEREDITH HICKS LEAD SHIP FITTER Signed: 01/30/2024 10:15 Receipt Acknowledged By: * AWAITING SIGNATURE * JANIE STERLING 02/02/2024 09:37 /es/ ALMA ROSA CLARK RESPIRATORY THERAPIST * AWAITING SIGNATURE * JANIE CARPIO 01/30/2024 ADDENDUM STATUS: COMPLETED Troy called specialty care back, he is concerned about his machine not being addressed and that he wont be able to use it tonight. I let him know that the message is in here and that someone will get back to him as soon as possible. /es/ CHI GRACE SHIP FITTER Signed: 01/30/2024 12:20 01/30/2024 ADDENDUM STATUS: COMPLETED Troy called back about his cpap. He has been transfered to triage nurse. /es/ CHI GRACE SHIP FITTER Signed: 01/30/2024 15:11 [facility] RIDDLE [facility] Jan 30, 2024 10:14 AM TELEPHONE ENCOUNTER NOTE: LOCAL TITLE: TELEPHONE NOTE/SPECIALTY CLINIC STANDARD TITLE: TELEPHONE ENCOUNTER NOTE DATE OF NOTE: JAN 30, 2024@10:14 ENTRY DATE: JAN 30, 2024@10:14:06 AUTHOR: MEREDITH HICKS EXP COSIGNER: URGENCY: STATUS: COMPLETED TELEPHONE NOTE/SPECIALTY CLINIC Has ADDENDA Troy has a RESMED AIR SENSE 2 machine. He states the green light comes on, however the screen doesn't come on. Please call to discuss. PH: [phone] /yunior/ MEREDITH HICKS LEAD SHIP FITTER Signed: 01/30/2024 10:15 Receipt Acknowledged By: 02/02/2024 13:38 /es/ JANIE STERLING,DYE WEIGHER RESPIRATORY THERAPIST 02/02/2024 09:37 /es/ ALMA ROSA CLARK RESPIRATORY THERAPIST 02/03/2024 13:39 /es/ JANIE CARPIO CRT RESPIRATORY THERAPIST 01/30/2024 ADDENDUM STATUS: COMPLETED Troy called specialty care back, he is concerned about his machine not being addressed and that he wont be able to use it tonight. I let him know that the message is in here and that someone will get back to him as soon as possible. /es/ CHI GRACE SHIP FITTER Signed: 01/30/2024 12:20 01/30/2024 ADDENDUM STATUS: COMPLETED called back about his cpap. He has been transfered to triage nurse. /yunior/ CHI GRACE SHIP FITTER Signed: 01/30/2024 15:11 01/30/2024 ADDENDUM STATUS: COMPLETED Called to discuss his machine issue. The device was troubleshooted with and the problem persists. 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 Troy is anxious about not having the machine but understands there is no way to get him a replacement device until Friday. /yunior/ BLAISE RIDDLE BA, DYE WEIGHER, RPFT RESPIRATORY THERAPIST Signed: 01/30/2024 15:50 Receipt Acknowledged By: 02/02/2024 09:46 /yunior/ ALMA ROSA CLARK RESPIRATORY THERAPIST MEREDITH HICKS [facility]
--- OUTSIDE RECORDS SUMMARY | 2024-06-29 19:01 | XMS_ITS | Encounter Summary ---
Author Name [facility] [facility] [place] [facility] [place] Address [address] [place] [address] Care Team Providers Care Product Development Engineer Name Role Phone ABDIRAHMAN LAKE Primary [...] BASIC FAMIL Y Jun 24, 2009 112 [id number] [phone] ABHILASH GARAY PATIENT ANTHEM BCBS [place] PREFERRED PROVIDER ORGANIZAT ION (PPO) FEP BASIC FAM Jun 24, 2009 112 [id number] [phone] ABHILASH GARAY PATIENT ANTHEM BCBS [place] PREFERRED PROVIDER ORGANIZAT ION (PPO) FEP BASIC FAM Jun 24, 2009 112 [id number] [phone] ABHILASH GARAY PATIENT [place] PREFERRED PROVIDER ORGANIZAT ION (PPO) F[place] BASIC FAM Jun 24, 2009 112 [id number] [phone] ABHILASH GARAY PATIENT [place]BS [place] F[place] PREFERRED PROVIDER ORGANIZAT ION (PPO) F[place] BASIC FAM Jun 24, 2009 112 [id number] [phone] RUBI GARAYNETH PATIENT [place]BS [place] F[place] PREFERRED PROVIDER ORGANIZAT ION (PPO) BASIC FAMIL Y Jun 24, 2009 [id number] ABHILASH GARAY PATIENT [place] PREFERRED PROVIDER ORGANIZAT ION (PPO) BASIC FAMIL Y Jun 24, 2009 [id number] ABHILASH GARAY PATIENT [place] PREFERRED PROVIDER ORGANIZAT ION (PPO) BASIC FAMIL Y Jun 24, 2009 [id number] ABHILASH GARAY PATIENT [place] F[place] DENTAL DENTAL INSURANCE BASIC Jul 12, 2009 DENTAL [id number] ABHILASH GARAY PATIENT [place] PREFERRED PROVIDER ORGANIZAT ION (PPO) BASIC FAMIL Y Jun 24, 2009 [id number] ABHILASH GARAY PATIENT [employer] FEP ([id number]) PRESCRIPT ION FEPRX Jun 24, 2009 [id number] [phone] ABHILASH GARAY PATIENT [place] FEP BCBS PRESCRIPT ION CAREM ARK FEPRX PLAN Nov 21, 2021 [id number] ABHILASH GARAY PATIENT [employer] FEPRX PLAN PRESCRIPT ION CAREM ARK FEPRX Nov 21, 2021 [id number] ABHILASH GARAY PATIENT [place]-F [place] BCBS PRESCRIPT ION FEP CAREM ARK Nov 21, 2021 [id number] ABHILASH GARAY PATIENT [place]-F EP BCBS PRESCRIPT ION FEP Jun 23, 2010 [id number] DEJAHDANIKARUBI ACEVESNETH PATIENT MEDICARE (WNR) MEDICARE (M) PART A Feb 22, 2020 PART A [id number] [phone] RUBI GARAYNETH PATIENT MEDICARE (WN) MEDICARE (M) PART A Feb 22, 2020 PART A [id number] [phone] ABHILASH GARAY PATIENT MEDICARE (WNR) MEDICARE (M) PART A Feb 22, 2020 PART A [id number] ABHILASH GARAY PATIENT MEDICARE (WNR) MEDICARE (M) PART A Feb 22, 2020 PART A [id number] ABHILASH GARAY PATIENT MEDICARE (WNR) MEDICARE (M) PART A Feb 22, 2020 PART A [id number] ABHILASH GARAY PATIENT Selected Encounter This section includes the information on record at [place] for the Encounter. Date/Time Encounter Type Encounter Description Reason Provider Source Jan 30, 2024 08:00 AM OFFICE O/P EST LOW 20 MIN PODIATRY ICD-10-CM L60.3 Nail dystrophy THOMPSON CARRANZA Fran Encounter Template Text not used by [place] Assessments - Encounter Diagnoses This section includes the primary and secondary diagnoses documented for the Encounter. Date/Time Primary/Secondary Diagnosis Diagnosis Name Provider Source Mar 02, 2024 04:10 PM PRIMARY Nail dystrophy THOMPSON CARRANZA [facility] Mar 02, 2024 04:10 PM SECONDARY Pain in left toe(s) THOMPSON CARRANZA [facility] Mar 02, 2024 04:10 PM SECONDARY Pain in right toe(s) THOMPSON CARRANZA [facility] Mar 02, 2024 04:10 PM SECONDARY Peripheral vascular disease, unspecified THOMPSON CARRANZA [facility] Plan of Treatment: Future Appointments (+ 6 [...] - [place]ICINE [place] [facility] Feb 04, 2024 11:00 AM AM[place]UL[place] [facility] Feb 09, 2024 11:30 AM AM[place] [facility] Feb 09, 2024 02:00 PM [place] [facility] Feb 19, 2024 01:00 PM [place] [facility] Feb 25, 2024 11:00 AM AMBULATORY - NONE [place] [facility] [facility] Mar 04, 2024 01:00 PM AMBUL[place] [facility] Mar 09, 2024 01:00 PM AM[place]UL[place] [facility] [place] [facility] Mar 11, 2024 11:00 AM AM[place]UL[place] [facility] [place] [facility] Mar 15, 2024 12:15 PM AMBUL[place] [facility] [place] [facility] Mar 25, 2024 01:00 PM AM[place]UL[place] [facility] [place] [facility] Apr 06, 2024 10:30 AM AMBULATORY - MEDICINE [facility] Apr 07, 2024 03:30 PM AMBULATORY - NONE [place] [facility] [facility] Apr 08, 2024 01:00 PM AMBULAT[place] [facility] [place] [facility] Apr 12, 2024 11:00 AM AM[place]UL[place] [facility] [place] [facility] Apr 15, 2024 10:00 AM AM[place]ULAT[place] [facility] [place] [facility] Apr 19, 2024 11:00 AM AM[place]ULAT[place] [facility] [place] [facility] Apr 22, 2024 09:00 AM AM[place]ULAT[place] [facility] [place] [facility] May 03, 2024 01:00 PM AMBULATORY [place] [facility] [place] [facility] May 17, 2024 01:00 PM AMBULATORY - REHAB MEDICIN E [facility] Social History: Smoking Status (Most current) and [...] Encounter took place. Date/Time Current Smoking Status Vanita casey Aug 18, 2020 10:00 AM [place]-TOBACCO NEVER USED [facility] Tobacco Use History This section includes a history of the smoking, or tobacco-related health factors, that were collected on or before the date of the Encounter. The data comes from the [place] facility where the Encounter took place. Date/Time Smoking Status/Tobacco Use Comment F darvin Dec 15, 2018 12:14 PM [place]TO[place] NEVER USED [facility] Jun 11, 2017 04:15 PM LIFETIME NON-TOBACCO USER [facility] Jan 01, 2016 11:12 AM LIFETIME NON-TOBACCO USER [facility] Jan 16, 2005 08:54 AM LIFETIME NON-SMOKER [facility] Nov 29, 2003 08:05 AM LIFETIME NON-SMOKER [facility] Jan 07, 2001 08:33 AM LIFETIME NON-SMOKER [facility] Encounter Notes: All associated encounter notes This section contains the clinical notes associated to the Encounter. Date/Time Encounter Note(s) Provider Source Jan 30, 2024 07:10 AM PODIATRY NOTE: LOCAL TITLE: PODIATRY NOTE STANDARD TITLE: PODIATRY NOTE DATE OF NOTE: JAN 30, 2024@07:10 ENTRY DATE: JAN 30, 2024@07:10:28 AUTHOR: THOMPSON CARRANZA COSIGNER: URGENCY: STATUS: COMPLETED Is Deeth interested in receiving the COVID-19 vaccine as it becomes available? Deeth has declined the Covid-19 vaccine at this time. LAST SEEN FOR TREATMENT: 08/22/2023 S: Pt. is a 68yo alert WDWN [...] present physical-medical status. Protective sensation utilizing a Helena-Yojana lOg monofilament is 10/10 bilateral. Exams are [...] VISIT) & PATIENT AGREES AND UNDERSTANDS PLAN DISCUSSED THE PROBLEM WITH NOT RECEIVING TIMELY POST CARD REMINDERS DUE TO A FAULTY SYSTEM AND WILL SPEAK TO HIS OCNGRESSMAN ABOUT THIS PROBLEM Medication Reconciliation: PERFORMED TODAY - SEE BELOW. Outpatient: Has the patient been taking medications as documented in the EMLR? YES: The patient has been taking medications as documented in the EMLR. Essential Medication List for Review used to complete this medication reconciliation. INCLUDED IN THIS LIST: Alphabetical list of active outpatient prescriptions dispensed from this [place] (local) and dispensed from another [place] or [place] facility (remote) as well as [...] JLV. Allergies/ADRs (Tool #5) FACILITY ALLERGY/ADR -------- [facility] NO KNOWN ALLERGIES [place] [facility] [facility] No Known Allergies [facility] NO KNOWN ALLERGIES Med [facility] (Tool #1) INCLUDED IN THIS LIST: Alphabetical list of active outpatient prescriptions dispensed from this [place] (local) and dispensed from another [place] or DoD facility (remote) as well as inpatient orders (local pending and active), local clinic medications, locally documented non-VA medications, and local prescriptions that have or been discontinued in the past 90 days. Non-VA Meds Last Documented On: Mar 11, 2022 NOTE The display of VA prescriptions dispensed from another [place] or [facility] facility (remote) is limited to active outpatient prescription entries matched to National Drug File at the originating site and may not include some items such as investigational drugs, compounds, etc. NOT INCLUDED IN THIS LIST: Medications self-entered by the patient into personal health records (i.e. [employer]) are NOT included in this list. Non-VA medications documented outside this [place], remote inpatient orders (regardless of status) and remote clinic medications are NOT included in this list. The patient and provider must always discuss medications the patient is taking, regardless of where the medication was dispensed or obtained. OUTPT ALLOPURINOL 100MG TAB (Status = Active) TAKE ONE TABLET BY MOUTH ONCE DAILY FOR GOUT Rx# [id number] Last Released: 12/09/23 Qty/Days Supply: Rx Expiration Date: 05/22/24 Refills Remainin OUTPT ATORVASTATIN CALCIUM 10MG TAB (Status = Discontinued) TAKE ONE TABLET BY MOUTH AT BEDTIME FOR HIGH CHOLESTEROL Rx# [id number] Last Released: 10/14/23 Qty/Days Supply: Rx Expiration Date: 04/08/24 Refills Remainin Indication: FOR HIGH CHOLESTEROL OUTPT ATORVASTATIN CALCIUM 10MG TAB (Status = Active) TAKE ONE TABLET BY MOUTH AT BEDTIME FOR HIGH CHOLESTEROL Rx# [id number] Last Released: 12/23/23 Qty/Days Supply: Rx Expiration Date: 11/03/24 Refills Remainin Indication: FOR HIGH CHOLESTEROL OUTPT CAMPHOR/MENTHOL/METHYL SALICYLATE PATCH (Status = Active) APPLY 1 PATCH TOPICALLY ONCE DAILY NEEDED FOR PAIN (REMOVE PATCH AFTER 8 TO 12 HOURS) Rx# [id number] Last Released: 12/22/23 Qty/Days Supply: 60/60 Rx Expiration Date: 12/22/24 Refills Remainin Indication: FOR PAIN OUTPT DILTIAZEM (EQV-CARDIZEM) 120MG 24HR CAP (Status = Discontinued) TAKE ONE CAPSULE BY MOUTH ONCE DAILY FOR HIGH BLOOD PRESSURE Rx# [id number] Last Released: 11/03/23 Qty/Days Supply: 90 Rx Expiration Date: 04/08/24 Refills Remainin Indication: FOR HIGH BLOOD PRESSURE OUTPT DILTIAZEM (EQV-CARDIZEM) 120MG 24HR CAP (Status = Active) TAKE ONE CAPSULE BY MOUTH ONCE DAILY FOR HIGH BLOOD PRESSURE Rx# [id number] Last Released: 01/14/24 Qty/Days Supply: 90/ Rx Expiration Date: 11/03/24 Refills Remainin Indication: FOR HIGH BLOOD PRESSURE Non-VA FISH OIL 500MG DHA/EPA CAP,ORAL TAKE BY MOUTH DAILY OUTPT KETOCONAZOLE 2% SHAMPOO (Status = Active) SHAMPOO TO DAMP HAIR TOPICALLY DIRECTED BY PROVIDER LEAVE IN FOR 5 MINUTES AND RINSE OUT. USE WHEN SHAMPOOING Rx# [id number] Last Released: 12/31/23 Qty/Days Supply: 120/30 Rx Expiration Date: 12/29/24 Refills Remainin OUTPT LEVOTHYROXINE NA (SYNTHROID) 125MCG TAB (Status = Active/Suspended) TAKE ONE TABLET BY MOUTH EVERY MORNING 30 MINUTES BEFORE BREAKFAST FOR THYROID TAKE ON AN EMPTY STOMACH WITH A FULL GLASS OF WATER Rx# [id number] Last Released: 12/29/23 Qty/Days Supply: 90/ Rx Expiration Date: 10/16/24 Refills Remainin Indication: FOR THYROID OUTPT METOPROLOL SUCCINATE 50MG SA TAB (Status = Discontinued) TAKE ONE TABLET BY MOUTH ONCE DAILY FOR BLOOD PRESSURE/HEART Rx# [id number] Last Released: 09/23/23 Qty/Days Supply: 90/ Rx Expiration Date: 04/08/24 Refills Remainin Indication: ATRIAL FIBRILLATION OUTPT METOPROLOL SUCCINATE 50MG SA TAB (Status = Active) TAKE ONE TABLET BY MOUTH ONCE DAILY FOR BLOOD PRESSURE/HEART Rx# [id number] Last Released: 12/03/23 Qty/Days Supply: 90/ Rx Expiration Date: 11/03/24 Refills Remainin Indication: ATRIAL FIBRILLATION Non-VA MULTIVITAMIN/MINERALS CAP/TAB TAKE ONE TABLET BY MOUTH EVERY DAY for the eyes Non-VA NIACIN TAB TAKE BY MOUTH OUTPT POTASSIUM CITRATE 10MEQ SA TAB (Status = Active) TAKE TWO TABLETS BY MOUTH TWICE DAILY Rx# [id number] Last Released: 12/23/23 Qty/Days Supply: Rx Expiration Date: 11/28/24 Refills Remainin Indication: KIDNEY STONES OUTPT RIVAROXABAN 20MG TAB (Status = Discontinued) TAKE ONE TABLET BY MOUTH ONCE DAILY TO PREVENT BLOOD CLOTS WITH FOOD Rx# [id number] Last Released: 07/09/23 Qty/Days Supply: Rx Expiration Date: 01/11/24 Refills Remainin Indication: TO PREVENT BLOOD CLOTS OUTPT RIVAROXABAN 20MG TAB (Status = Active) TAKE ONE TABLET BY MOUTH ONCE DAILY TO PREVENT BLOOD CLOTS (TAKE WITH FOOD) Rx# [id number] Last Released: 01/26/24 Qty/Days Supply: Rx Expiration Date: 11/03/24 Refills Remainin Indication: TO PREVENT BLOOD CLOTS SUPPLIES /yunior/ THOMPSON CARRANZA DPM COOLING PIPE INSPECTOR Signed: 01/30/2024 08:25 THOMPSON CARRANZA [facility]
--- OUTSIDE RECORDS SUMMARY | 2024-06-29 19:01 | XMS_ITS ---
Author Name [facility] [place] [facility] [place] [facility] [place] Address [address] [place] [address] Care Team Providers Care Visitor Service Assistant Name Role Phone ABDIRAHMAN LAKE Primary [...] BASIC FAMIL Y Jun 24, 2009 112 [id number] [phone] ABHILASH GARAY PATIENT ANTHEM BCBS [place] PREFERRED PROVIDER ORGANIZAT ION (PPO) FEP BASIC FAM Jun 24, 2009 112 [id number] [phone] ABHILASH GARAY PATIENT ANTHEM BCBS [place] F[place] PREFERRED PROVIDER ORGANIZAT ION (PPO) FEP BASIC FAM Jun 24, 2009 112 [id number] [phone] ABHILASH GARAY PATIENT [place] PREFERRED PROVIDER ORGANIZAT ION (PPO) FEP BASIC FAM Jun 24, 2009 112 [id number] [phone] ABHILASH GARAY PATIENT [place] PREFERRED PROVIDER ORGANIZAT ION (PPO) FEP BASIC FAM Jun 24, 2009 [id number] [phone] ABHILASH GARAY PATIENT [place] PREFERRED PROVIDER ORGANIZAT ION (PPO) BASIC FAMIL Y Jun 24, 2009 [id number] [phone] ABHILASH GARAY PATIENT [place] F[place] PREFERRED PROVIDER ORGANIZAT ION (PPO) BASIC FAMIL Y Jun 24, 2009 112 [id number] ABHILASH GARAY PATIENT [place] PREFERRED PROVIDER ORGANIZAT ION (PPO) BASIC FAMIL Y Jun 24, 2009 [id number] ABHILASH GARAY PATIENT [place] DENTAL DENTAL INSURANCE BASIC Jul 12, 2009 DENTAL [id number] [phone] ABHILASH GARAY PATIENT [place] PREFERRED PROVIDER ORGANIZAT ION (PPO) BASIC FAMIL Y Jun 24, 2009 [id number] ABHILASH GARAY PATIENT [employer] FEP ([id number]) PRESCRIPT ION FEPRX Jun 24, 2009 [id number] [phone] ABHILASH GARAY PATIENT [place] FEP BCBS PRESCRIPT ION CAREM ARK FEPRX PLAN Nov 21, 2021 [id number] ABHILASH GARAY PATIENT [employer] FEPRX PLAN PRESCRIPT ION CAREM ARK FEPRX Nov 21, 2021 [id number] ABHILASH GARAY PATIENT [place]-F [place] BCBS PRESCRIPT ION FEP CAREM ARK Nov 21, 2021 [id number] ABHILASH GARAY PATIENT [place]-F EP BCBS PRESCRIPT ION FEP Jun 23, 2010 [id number] RUBI GARAYNETH PATIENT MEDICARE (WN) MEDICARE () PART A Feb 22, 2020 PART A [id number] ABHILASH GARAY PATIENT MEDICARE (WN) MEDICARE () PART A Feb 22, 2020 PART A [id number] ABHILASH GARAY PATIENT MEDICARE (WNR) MEDICARE (M) PART A Feb 22, 2020 PART A [id number] ABHILASH GARAY PATIENT MEDICARE (WNR) MEDICARE (M) PART A Feb 22, 2020 PART A [id number] ABHILASH GARAY PATIENT MEDICARE (WNR) MEDICARE (M) PART A Feb 22, 2020 PART A [id number] [phone] ABHILASH GARAY PATIENT Selected Encounter This section includes the information on record at [place] for the Encounter. Date/Time Encounter Type Encounter Description Reason Provider Source Jan 22, 2024 01:00 PM EXERCISE CLASS HEALTH/WELLBEING SRVS ICD-10-CM Y93.42 Activity, PAT Yoder IHFran Encounter Template Text not used by [place] Assessments - Encounter Diagnoses This section includes the primary and secondary diagnoses documented for the Encounter. Date/Time Primary/Secondary Diagnosis Diagnosis Name Provider Source Jan 29, 2024 08:11 AM PRIMARY Activity, PEDRO Yoder [facility] [place] [facility] Plan of Treatment: Future Appointments (+ 6 [...] - MEDICINE [place] [facility] Jan 30, 2024 08:00 AM [facility] Feb 02, 2024 02:00 PM AM[place]UL[place] - [place] [facility] Feb 04, 2024 11:00 AM [place] [facility] Feb 09, 2024 11:30 AM [place] [facility] Feb 09, 2024 02:00 PM AM[place]UL[place] [facility] Feb 19, 2024 01:00 PM AM[place]ULATORY [place] [facility] [place] [place] [facility] Feb 25, 2024 11:00 AM AMBULATORY - NONE [place] [facility] [place] [facility] Mar 04, 2024 01:00 PM AMBULATORY [place] [facility] [place] [facility] Mar 09, 2024 01:00 PM AMBULATORY [place] [facility] [place] [facility] Mar 11, 2024 11:00 AM AMBULATORY [place] [facility] [place] [facility] Mar 15, 2024 12:15 PM AMBULATORY [place] [facility] [place] [place] [facility] Mar 25, 2024 01:00 PM AM[place]ULAT[place] [facility] [place] [facility] Apr 06, 2024 10:30 AM AMBULATORY - MEDICINE [facility] Apr 07, 2024 03:30 PM AMBULATORY - NONE [place] [facility] [place] [facility] Apr 08, 2024 01:00 PM AMBULATORY [place] [facility] [place] [place] [facility] Apr 12, 2024 11:00 AM AM[place]ULAT[place] [facility] [place] [place] [facility] Apr 15, 2024 10:00 AM AMBULATORY [place] [facility] [place] [place] [facility] Apr 19, 2024 11:00 AM AM[place]UL[place] [facility] [place] [facility] Apr 22, 2024 09:00 AM AMBULATORY - [...] 2023 09:12 AM [place]-TOBACCO [place] USED [place] [facility] Tobacco Use History This section includes a history of the smoking, or tobacco-related health factors, that were collected on or before the date of the Encounter. The data comes from the [place] facility where the Encounter took place. Date/Time Smoking Status/Tobacco Use Comment F darvin Aug 09, 2021 09:20 AM [place]-TOBACCO NEVER USED [facility] Encounter Notes: All associated encounter notes This section contains the clinical notes associated to the Encounter. Date/Time Encounter Note(s) Provider Source Jan 22, 2024 01:00 PM RECREATIONAL THERA PY NOTE: LOCAL TITLE: YOGA WELLBEING STANDARD TITLE: RECREATIONAL THERAPY NOTE DATE OF NOTE: JAN 22, 2024@13:00 ENTRY DATE: JAN 29, 2024@07:59:49 AUTHOR: MARY KATE MOORE COSIGNER: URGENCY: STATUS: [...] tree, triangle pose, wide leg forward bend, Preble 2, Extended Side Angle Pose, Intense Side Stretch, Preble 1, plank, cobra, locust, downward facing dog, wisdom pose, contralateral limb raises, head to knee pose, bridge, reclined twist, and knees to chest; Systematic Relaxation; and Gratitude. Modifications were geared toward the [place]'s individual needs and preferences. [place] was one of five participants in Group Yoga. He fully participated, practicing all the postures offered and modifying according to his needs. He practiced excellent self-care and used his breath as a tool to enhance his practice. He will return to class as his schedule allows. /yunior/ NINO [id number] Sales Representative Signed: 01/29/2024 08:13 MARY KATE MOORE [place] ARIEL DAVID [facility]
--- OUTSIDE RECORDS SUMMARY | 2024-06-29 19:02 | XMS_ITS ---
Author Name [facility] [place] Organization [facility] [place] Address [address] [place] [address] Care Team Providers Care Black Top Roller Name Role Phone ABDIRAHMAN LAKE Primary Care [...] BASIC FAMIL Y Jun 24, 2009 [id number] [phone] ABHILASH GARAY PATIENT ANTHEM BCBS [place] F[place] PREFERRED PROVIDER ORGANIZAT ION (PPO) FEP BASIC FAM Jun 24, 2009 112 [id number] [phone] ABHILASH GARAY PATIENT ANTHEM BCBS [place] F[place] PREFERRED PROVIDER ORGANIZAT ION (PPO) FEP BASIC FAM Jun 24, 2009 112 [id number] [phone] ABHILASH GARAY PATIENT ANTHEM [place] PREFERRED PROVIDER ORGANIZAT ION (PPO) FEP BASIC FAM Jun 24, 2009 112 [id number] [phone] ABHILASH GARAY PATIENT [place] F[place] PREFERRED PROVIDER ORGANIZAT ION (PPO) FEP BASIC FAM Jun 24, 2009 112 [id number] [phone] RUBI GARAYNETH PATIENT BCBS [place] F[place] PREFERRED PROVIDER ORGANIZAT ION (PPO) BASIC FAMIL Y Jun 24, 2009 [id number] RUBI GARAYNETH PATIENT [place] PREFERRED PROVIDER ORGANIZAT ION (PPO) BASIC FAMIL Y Jun 24, 2009 [id number] RUBI GARAYNETH PATIENT [place] F[place] PREFERRED PROVIDER ORGANIZAT ION (PPO) BASIC FAMIL Y Jun 24, 2009 [id number] 62 RUBI GARAYNETH PATIENT [place] FEP DENTAL DENTAL INSURANCE BASIC Jul 12, 2009 DENTAL [id number] DEJAHDANIKARUBI ACEVESNETH PATIENT [place] F[place] PREFERRED PROVIDER ORGANIZAT ION (PPO) BASIC FAMIL Y Jun 24, 2009 [id number] 62 ABHILASH GARAY PATIENT [employer] FEP ([id number]) PRESCRIPT ION FEPRX Jun 24, 2009 [id number] [phone] ABHILASH GARAY PATIENT [employer] FEP BCBS PRESCRIPT ION CAREM ARK FEPRX PLAN Nov 21, 2021 [id number] ABHILASH GARAY PATIENT [employer] FEPRX PLAN PRESCRIPT ION CAREM ARK FEPRX Nov 21, 2021 [id number] ABHILASH GARAY PATIENT [employer]-F EP BCBS PRESCRIPT ION FEP CAREM ARK Nov 21, 2021 [id number] ABHILASH GARAY PATIENT [employer]-F EP BCBS PRESCRIPT ION FEP Jun 23, 2010 [id number] RUBI GARAYNETH PATIENT MEDICARE ([facility]) MEDICARE () PART A Feb 22, 2020 PART A [id number] ABHILASH GARAY PATIENT MEDICARE (WNR) MEDICARE (M) PART A Feb 22, 2020 PART A [id number] ABHILASH GARAY PATIENT MEDICARE (WNR) MEDICARE (M) PART A Feb 22, 2020 PART A [id number] ABHLIASH GARAY PATIENT MEDICARE (WNR) MEDICARE (M) PART A Feb 22, 2020 PART A [id number] ABHILASH GARAY PATIENT MEDICARE (WNR) MEDICARE (M) PART A Feb 22, 2020 PART A [id number] [phone] ABHILASH GARAY PATIENT Selected Encounter This section includes the information on record at ID for the Encounter. Date/Time Encounter Type Encounter Description Reason Provider Source Feb 09, 2024 11:30 AM COMPRE OPH EXAM EST PT 1/> OPTOMETRY ICD-10-CM H25.813 Combined forms of age-related cataract, bilateral DARIEL MYERS E Fran Encounter Template Text not used by ID Assessments - Encounter Diagnoses This section includes the primary and secondary diagnoses documented for the Encounter. Date/Time Primary/Secondary Diagnosis Diagnosis Name Provider Source Feb 27, 2024 09:06 AM PRIMARY Combined forms of age-related cataract, bilateral DARIEL MYERS [facility] Feb 27, 2024 09:06 AM SECONDARY Unspecified disorder of refraction [facility] Plan of Treatment: Future Appointments (+ [...] Appointment Type Appointme nt Facility Name Feb 19, 2024 01:00 PM AMBULATORY - MEDICINE [facility] [place] [facility] Feb 25, 2024 11:00 AM [facility]ONE [facility] Mar 04, 2024 01:00 PM [facility]UL[facility]ICINE [facility] [place] [facility] Mar 09, 2024 01:00 PM AMBULATORY - MEDICINE [facility] [place] [facility] Mar 11, 2024 11:00 AM AMBULATORY - MEDICINE [facility] [place] [facility] Mar 15, 2024 12:15 PM AMBULATORY - MEDICINE [facility] [place] [facility] Mar 25, 2024 01:00 PM AMBULATORY - MEDICINE [facility] [place] [facility] Apr 06, 2024 10:30 AM AM[facility]ULATORY - MEDICINE [facility] Apr 07, 2024 03:30 PM AMBULATORY - NONE [facility] [place] [facility] Apr 08, 2024 01:00 PM AMBULATORY - MEDICINE [facility] [place] [facility] Apr 12, 2024 11:00 AM AMBULATORY - MEDICINE [facility] [place] [facility] Apr 15, 2024 10:00 AM AMBULATORY - MEDICINE [facility] [place] [facility] Apr 19, 2024 11:00 AM AMBULATORY - MEDICINE [facility] [place] [facility] Apr 22, 2024 09:00 AM AMBULATORY - MEDICINE [facility] [place] [facility] May 03, 2024 01:00 PM AMBULATORY - MEDICINE [facility] [place] [facility] May 17, 2024 01:00 PM AMBULATORY - REHAB [facility] May 28, 2024 07:30 AM AMBULATORY - MEDICINE [facility] [place] [facility] Jun 03, 2024 01:00 PM AMBULATORY - MEDICINE [facility] C [place]TRL [place] [facility] Jun 08, 2024 03:00 [facility] Jun 11, 2024 08:00 AM [facility] [...] place. Date/Time Current Smoking Status Vanita casey Apr 08, 2023 09:12 AM VA-TOBACCO NEVER USED ID CNTRL [place] [facility] Tobacco Use History This section includes a history of the smoking, or tobacco-related health factors, that were collected on or before the date of the Encounter. The data comes from the [place] facility where the Encounter took place. Date/Time Smoking Status/Tobacco Use Comment Gilberto boston Aug 09, 2021 09:20 AM VA-TOBACCO NEVER USED [facility] Encounter Notes: All associated encounter notes This section contains the clinical notes associated to the Encounter. Date/Time Encounter Note(s) Provider Source Feb 09, 2024 11:33 AM OPTOMETRY NOTE: LOCAL TITLE: OPTOMETRY NOTE(T) STANDARD TITLE: OPTOMETRY NOTE DATE OF NOTE: FEB 09, 2024@11:33 ENTRY DATE: FEB 09, 2024@11:33:05 AUTHOR: DARIEL MYERS EXP COSIGNER: URGENCY: STATUS: COMPLETED I saw this patient in conjunction with the student and agree to the stated findings and plan after reviewing both history and repeating langford elements of physical exam. Patient presents for comprehensive exam well-known to me with history of mild combined cataract, myelinated nerve fiber layer OS appears stable from prior exams and chorioretinal scar OS appears stable from prior notes.Otherwise no acute ocular disease was seen today. Ordered progressive transitions secondary to glare sensitivity. The patient will return in 12 months or sooner if any problems arise. /yunior/ DARIEL MYERS OD STAFF [employer] Signed: 02/09/2024 12:07 DARIEL MYERS [facility] Feb 09, 2024 11:20 AM OPTOMETRY NOTE: LOCAL TITLE: OPTOMETRY NOTE STANDARD TITLE: OPTOMETRY NOTE DATE OF NOTE: FEB 09, 2024@11:20 ENTRY DATE: FEB 09, 2024@11:20:52 AUTHOR: GERALD GUSTAFSON EXP COSIGNER: DARIEL MYERS URGENCY: STATUS: COMPLETED Active problems - Computerized Problem List is the source for the followin. CLBP - chronic low back pain 2. Primary malignant neoplasm of skin 3. History of malignant neoplasm of thyroid 4. GLENN - Obstructive sleep apnea 5. Atrial fibrillation 6. Paresthesia 7. Restless legs syndrome 8. History of pulmonary embolus 9. Kidney stone 10. Benign essential hypertension 11. Hyperlipidemia 12. Onychomycosis of toenails 13. Onychomycosis of toenails 14. Low back pain 15. Scoliosis 16. Gastroesophageal reflux disease 17. Thyroid nodule 18. Gastroesophageal reflux disease 19. THYROID NODULE 20. Tinea Pedis * 21. Ulcer of other part of Foot 22. Cellulitis and abscess of foot, except toes 23. Osteoarthritis * 24. Dermatitis or Eczema * 25. Color Blindness 26. Colorectal Cancer Screening Results documented and Reviewed (PV1) (Includes: 27. LIVER CYST 28. Back Strain 29. Kidney Stones 30. Scoliosis * 31. HYPERLIPIDEMIA NEC/NOS Active Outpatient Medications (including Supplies): Active Outpatient Medications Status 1) ALLOPURINOL 100MG TAB TAKE ONE TABLET BY MOUTH ONCE ACTIVE DAILY FOR GOUT 2) ATORVASTATIN CALCIUM 10MG TAB TAKE ONE TABLET BY ACTIVE MOUTH AT BEDTIME FOR HIGH CHOLESTEROL 3) CAMPHOR/MENTHOL/METHYL SALICYLATE PATCH APPLY 1 PATCH ACTIVE TOPICALLY ONCE DAILY NEEDED FOR PAIN (REMOVE PATCH AFTER 8 TO 12 HOURS) 4) DILTIAZEM (EQV-CARDIZEM) 120MG 24HR CAP TAKE ONE ACTIVE CAPSULE BY MOUTH ONCE DAILY FOR HIGH BLOOD PRESSURE 5) KETOCONAZOLE 2% SHAMPOO SHAMPOO TO DAMP HAIR ACTIVE TOPICALLY DIRECTED BY PROVIDER LEAVE IN FOR 5 MINUTES AND RINSE OUT. USE WHEN SHAMPOOING 6) LEVOTHYROXINE NA (SYNTHROID) 125MCG TAB TAKE ONE ACTIVE (S) TABLET BY MOUTH EVERY MORNING 30 MINUTES BEFORE BREAKFAST FOR THYROID TAKE ON AN EMPTY STOMACH WITH A FULL GLASS OF WATER 7) METOPROLOL SUCCINATE 50MG SA TAB TAKE ONE TABLET BY ACTIVE MOUTH ONCE DAILY FOR BLOOD PRESSURE/HEART 8) POTASSIUM CITRATE 10MEQ SA TAB TAKE TWO TABLETS BY ACTIVE MOUTH TWICE DAILY 9) RIVAROXABAN 20MG TAB TAKE ONE TABLET BY MOUTH ONCE ACTIVE DAILY TO PREVENT BLOOD CLOTS (TAKE WITH FOOD) Active Non-VA Medications Status 1) Non-VA FISH OIL 500MG DHA/EPA CAP,ORAL BY MOUTH ACTIVE DAILY 2) Non-VA MULTIVITAMIN/MINERALS CAP/TAB 1 TABLET BY ACTIVE MOUTH EVERY DAY 3) Non-VA NIACIN TAB BY MOUTH ACTIVE 12 Total Medications Allergies: Patient has answered NKA All medications including those prescribed by outside VA's, community providers, and all OTC meds were reviewed and reconciled with patient to the best of their abilities. This 68 year old MALE is seen today for comprehensive eye exam. Chief Complaint: Patient has no visual complaints. OHx: Combined cataracts OU RE/P (-) Pain: (-) NELSON: (-) Diplopia: (-) Flashes: (-) Floaters: (-) Amaurosis Fugax/Tia's: (-) Eye Injury: (-) Eye Surgery: (-) TBI FOHx: (-) Glaucoma/ARMD/Blindness (-) Smoker/Length of Time/PPD: Current Rx with last BCVA: +1.75-0.50x 85 20/20 slow +1.50-0.75 x 65 20/20 slow +2.50 DVA ( )sc ( x )cc OD: 20/25-2 OS: 20/25-1 Pupils: PERRL (-)APD EOMs: SAFE OU, (-)Pain/Diplopia CVF (facial, peripheral): FTFC OU Subjective Refraction: OD: +1.25-0.36i129 20/20 OS: +1.00-0.32b275 20/20 Add: +2.50 20/20 All the above performed by student, reviewed by attending Anterior segment: Performed by student, repeated by attending * Lids: dermatochalasis OS>OD, scalloped lid margins OU Conj: white and quiet OU Cornea: clear OU AC: 3x3 OU Iris: flat and clear OU Lens: 2+ NS OU, 1-2+ inferior ACC OU Tonometry: GAT Performed by student, reviewed by attending * OD 13 mmHg OS 13 mmHg Time: 11:32am Fundus exam: Dilated: 11:35am Dilating Drops: 1GTT 1 % Tropicamide OU & 1GTT 2.5% Phenylephrine OU (Pt. ed. on side effects, dilation warning given and verbal consent obtained) Patient advised not to drive if they feel they have any symptoms which could affect their ability to drive safely. Patient advised not to engage in any activities which could put themselves or others at risk if they feel they have any symptoms which could affect their ability to perform those activities safely. Performed by student, repeated by attending * Vit: syneresis OU, PVD OU C/D: 0.3/0.3 OD, 0.35/0.35 OS, myelinated NFL inf-nasal OS Macula: flat and clear OD, tr ERM OS PPole: patch of drusen inferiorly OU A/V: 2/3 Vessels: normal caliber OU Periph: flat and intact (-)holes, tears, detachments 360 OU small chorioretinal scar inferior temporal OD Assessment/Plan: 1. Combined cataracts OU. Not visually significant. Continue to monitor. 2. Hyperopia with presbyopia OU. Ordered 1x transition PALs. Monitor. Return to Clinic 1 year or earlier PRN [place] Education: After discussion and answering all 's questions, demonstrated and verbalized understanding of diagnosis and treatment. Yes [x] No [ ] Medication Reconciliation: Outpatient: Has the patient been taking medications as documented in the EMLR? YES: The patient has been taking medications as documented in the EMLR. Essential Medication List for Review used to complete this medication reconciliation. INCLUDED IN THIS LIST: Alphabetical list of active outpatient prescriptions dispensed from this ID (local) and dispensed from another ID or [facility] facility (remote) as well as inpatient orders [...] whether with a VA or non-VA provider. /yunior/ GERALD GUSTAFSON OPTOMETRY STUDENT Signed: 02/09/2024 12:57 /yunior/ DARIEL MYERS OD STAFF [employer] Cosigned: 02/09/2024 13:02 GERALD GUSTAFSON CNTRL WSTRN [facility]
--- OUTSIDE RECORDS SUMMARY | 2024-06-29 19:02 | XMS_ITS | Encounter Summary ---
Author Name [facility] [place] Address [address] [place] [address] Care Team Providers Care Manager Ecommerce Name Role Phone ABDIRAHMAN LAKE Primary Care [...] BASIC FAMIL Y Jun 24, 2009 [id number] [phone] ABHILASH GARAY PATIENT ANTHEM BCBS [place] FEP PREFERRED PROVIDER ORGANIZAT ION (PPO) FEP BASIC FAM Jun 24, 2009 [id number] [phone] ABHILASH GARAY PATIENT ANTHEM [place] F[place] PREFERRED PROVIDER ORGANIZAT ION (PPO) FEP BASIC FAM Jun 24, 2009 112 [id number] [phone] ABHIALSH GARAY PATIENT [place] PREFERRED PROVIDER ORGANIZAT ION (PPO) FEP BASIC FAM Jun 24, 2009 [id number] [phone] ABHILASH GARAY PATIENT [place] PREFERRED PROVIDER ORGANIZAT ION (PPO) FEP BASIC FAM Jun 24, 2009 [id number] [phone] ABHILASH GARAY PATIENT [place] PREFERRED PROVIDER ORGANIZAT ION (PPO) BASIC FAMIL Y Jun 24, 2009 [id number] ABHILASH GARAY PATIENT [place] PREFERRED PROVIDER ORGANIZAT ION (PPO) BASIC FAMIL Y Jun 24, 2009 [id number] ABHILASH GARAY PATIENT [place] F[place] PREFERRED PROVIDER ORGANIZAT ION (PPO) BASIC FAMIL Y Jun 24, 2009 [id number] ABHILASH GARAY PATIENT [place] F[place] DENTAL DENTAL INSURANCE BASIC Jul 12, 2009 DENTAL [id number] ABHILASH GARAY PATIENT [place] PREFERRED PROVIDER ORGANIZAT ION (PPO) BASIC FAMIL Y Jun 24, 2009 [id number] ABHILASH GARAY PATIENT [employer] FEP ([id number]) PRESCRIPT ION FEPRX Jun 24, 2009 [id number] [phone] ABHILASH GARAY PATIENT [employer] FEP BCBS PRESCRIPT ION CAREM ARK FEPRX PLAN Nov 21, 2021 [id number] ABHILASH GARAY PATIENT [employer] FEPRX PLAN PRESCRIPT ION CAREM ARK FEPRX Nov 21, 2021 [id number] ABHILASH GARAY PATIENT [employer]-F EP BCBS PRESCRIPT ION FEP CAREM ARK Nov 21, 2021 [id number] ABHILASH GARAY PATIENT [employer]-F EP BCBS PRESCRIPT ION FEP Jun 23, 2010 [id number] RUBI GARAYNETH PATIENT MEDICARE (WN) MEDICARE () PART A Feb 22, 2020 PART A [id number] [phone] ABHILASH GARAY PATIENT MEDICARE (WN) MEDICARE () PART A Feb 22, 2020 PART A [id number] ABHILASH GARAY PATIENT MEDICARE (WNR) MEDICARE (M) PART A Feb 22, 2020 PART A [id number] NV71 [phone] ABHILASH GARAY PATIENT MEDICARE (WNR) MEDICARE (M) PART A Feb 22, 2020 PART A [id number] ABHILASH GARAY PATIENT MEDICARE (WNR) MEDICARE (M) PART A Feb 22, 2020 PART A [id number] ABHILASH GARAY PATIENT Selected Encounter This section includes the information on record at [place] for the Encounter. Date/Time Encounter Type Encounter Description Reason Provider Source Feb 04, 2024 11:00 AM INFRARED THERAPY [facility] TREATMENT ICD-10-CM M25.561 Pain in right knee JV RODAS [facility] Encounter Template Text not used by [place] Assessments - Encounter Diagnoses This section includes the primary and secondary diagnoses documented for the Encounter. Date/Time Primary/Secondary Diagnosis Diagnosis Name Provider Source Feb 29, 2024 07:24 AM PRIMARY Pain in right knee MANOHARUNGRACE GALLEGOS PHER M [place] [facility] [place] [facility] Feb 29, 2024 07:24 AM SECONDARY Pain in left knee GRACE RODAS PHER M RI [facility] [place] [facility] Feb 29, 2024 07:24 AM SECONDARY Pain in left toe(s) JOSE MANUEL RODASO PHER M [place] [facility] [place] [facility] Feb 29, 2024 07:24 AM SECONDARY Pain in right toe(s) GRACE RODAS PHER M [place] [facility] [place] [facility] Feb 29, 2024 07:24 AM SECONDARY Polyneuropathy, unspecified GRACE RODAS PHER M [place] [facility] [place] [facility] Plan of Treatment: Future Appointments (+ [...] 20 appointments. The data comes from all VA treatment facilities. Appointment Date/Time Appointment Type Appointme nt Facility Name Feb 09, 2024 11:30 AM AMBULATORY - MEDICINE [facility] [place] [facility] Feb 09, 2024 02:00 PM AMBULATORY - MEDICINE [facility] [place] [facility] Feb 19, 2024 01:00 PM AMBULATORY - MEDICINE [facility] [place] [facility] Feb 25, 2024 11:00 AM AMBULATORY - NONE [facility] [place] [facility] Mar 04, 2024 01:00 PM AMBULATORY - MEDICINE [facility] [place] [facility] Mar 09, 2024 01:00 PM AMBULATORY - MEDICINE [facility] [place] [facility] Mar 11, 2024 11:00 AM AMBULATORY - MEDICINE [facility] [place] [facility] Mar 15, 2024 12:15 PM AMBULATORY - MEDICINE [facility] [place] [facility] Mar 25, 2024 01:00 PM AMBULATORY - MEDICINE [facility] [place] [facility] Apr 06, 2024 10:30 AM [facility] Apr 07, 2024 03:30 PM AMBULATORY - NONE [facility] [place] [facility] Apr 08, 2024 01:00 PM AMBULATORY - MEDICINE [facility] [place] [facility] Apr 12, 2024 11:00 AM AMBULATORY - MEDICINE [facility] [place] [facility] Apr 15, 2024 10:00 AM AMBULATORY - MEDICINE [facility] [place] [facility] Apr 19, 2024 11:00 AM AMBULATORY - MEDICINE [facility] [place] [facility] Apr 22, 2024 09:00 AM AMBULATORY - MEDICINE [facility] [place] [facility] May 03, 2024 01:00 PM AMBULATORY - MEDICINE [facility] [place] [facility] May 17, 2024 01:00 PM [facility]ATORY - [facility] May 28, 2024 07:30 AM AMBULATORY - MEDICINE [facility] [place] [facility] Jun 03, 2024 01:00 PM AMBULATORY - MEDICINE [facility] [place] [facility] Social History: Smoking Status (Most current) [...] 08, 2023 09:12 AM VA-TOBACCO NEVER USED [facility] Tobacco Use History This section includes a history of the smoking, or tobacco-related health factors, that were collected on or before the date of the Encounter. The data comes from the [place] facility where the Encounter took place. Date/Time Smoking Status/Tobacco Use Comment F acjaved Aug 09, 2021 09:20 AM VA-TOBACCO NEVER USED [facility] Encounter Notes: All associated encounter notes This section contains the clinical notes associated to the Encounter. Date/Time Encounter Note(s) Provider Source Feb 04, 2024 11:29 AM ACUPUNCTURE NOTE: LOCAL TITLE: ACUPUNCTURE TREATMENT STANDARD TITLE: ACUPUNCTURE NOTE DATE OF NOTE: FEB 04, 2024@11:29 ENTRY DATE: FEB 04, 2024@11:29:46 AUTHOR: DEE RODAS EXP COSIGNER: URGENCY: STATUS: COMPLETED ABHILASH GARAY is a 68 WHITE MALE who presents with Neuropathy, Low back pain Active Problem Primary malignant neoplasm of skin 01/24/2023 GREGG HARMON History of malignant neoplasm of th 09/14/2022 GREGG HARMON GLENN - Obstructive sleep apnea G47.3 07/21/2022 EDENGREGG OREILLY Atrial fibrillation I48.91 03/20/2022 EDENGREGG OREILLY Paresthesia R20.2 03/11/2022 EDEN,GREGG Restless legs syndrome G25.81 03/11/2022 GREGG HARMON History of pulmonary embolus Z86.71 08/09/2021 EDEN,GREGG Kidney stone N20.0 09/11/2020 EDENGREGG OREILLY Benign essential hypertension I10. 03/27/2018 EMELY ONOFRE Hyperlipidemia E78.5 06/27/2017 GREGG HARMON Onychomycosis of toenails L84. 03/28/2017 THOMPSON CARRANZA Gilberto Onychomycosis of toenails B35.1 12/04/2016 THOMPSON CARRANZA Gilberto Low back pain M54.5 05/23/2016 GREGG HARMON [...] HARMON Date Jan CC / HPI - [place] presents with 2 complaints. Primary complaint is low back pain. [place] states pain across the lumbar spine states he has chronic pain across the lumbar level that radiates into both hips. [place] states he does get radiation down posterior [...] foot when he was in the service. [place] states he gets stabbing pain that can cause him to limp periodically. Aintha states that he has sleep apnea uses a CPAP. He reports he does well with the CPAP machine and gets approximately 9 hours of sleep per night. Anitha reports he has a good appetite but his diet could be better. Anitha is diabetic. Anitha has a history of thyroid and skin cancer. Anitha had his thyroid removed last year. [place] states he gets cold easily. Digestion: Anitha has history of GERD but no other issues. No discomfort reported. Bowel movements regular and unremarkable. Urine normal. RESPONSE TO PREVIOUS TREATMENT. Anitha reports no real change in his knee pain or his neuropathy in his feet. We discussed treatment options going forward. Anitha has 2 more acupuncture treatments scheduled contingent on response to today's treatment. Suggested to the [place] that he may want to contact his primary care and request a referral to the pain clinic for further treatment options. Anitha has asked again to focus on his knees and his peripheral neuropathy. _ OBJECTIVE General: . Patient in no [...] ]Pyonex Needle: remove prior to bathing per telecom sales consultant INFORMED CONSENT: Oral Consent obtained on Jan [...] GB 34, ST 36, GB 40, Bafeng [ ]Other therapies: [ ]Cupping: [ ]Cold Laser [ ]Peizo Pen: [ ]External Qigong: [X]TDP Lamp:feet 20 min each. [ ]Tui Na: [ ]Guasha: [ ]Nutrition [...] is required /yunior/ DEE RODAS LA.C DIPL.AC ROOF TRUSS MACHINE TENDER Signed: 02/04/2024 12:53 DEE RODAS CNTRL WSTRN [facility]
--- OUTSIDE RECORDS SUMMARY | 2024-06-29 19:02 | XMS_ITS | Encounter Summary ---
Author Name [facility] [place] Address [address] [place] [address] Care Team Providers Care Jewelry Jobber Name Role Phone ABDIRAHMAN LAKE Primary Care [...] BASIC FAMIL Y Jun 24, 2009 112 [id number] [phone] ABHILASH GARAY PATIENT ANTHEM BCBS [place] F[place] PREFERRED PROVIDER ORGANIZAT ION (PPO) FEP BASIC FAM Jun 24, 2009 112 [id number] [phone] ABHILASH GARAY PATIENT ANTHEM BCBS [place] FEP PREFERRED PROVIDER ORGANIZAT ION (PPO) FEP BASIC FAM Jun 24, 2009 112 [id number] [phone] ABHILASH GARAY PATIENT ANTHEM [place] F[place] PREFERRED PROVIDER ORGANIZAT ION (PPO) FEP BASIC FAM Jun 24, 2009 112 [id number] [phone] ABHILASH GARAY PATIENT [place] F[place] PREFERRED PROVIDER ORGANIZAT ION (PPO) FEP BASIC FAM Jun 24, 2009 112 [id number] [phone] RUBI GARAYNETH PATIENT [place]BS [place] FEP PREFERRED PROVIDER ORGANIZAT ION (PPO) BASIC FAMIL Y Jun 24, 2009 [id number] RUBI GARAYNETH PATIENT [place] PREFERRED PROVIDER ORGANIZAT ION (PPO) BASIC FAMIL Y Jun 24, 2009 112 [id number] [phone] RBUI GARAYNETH PATIENT [place] FEP PREFERRED PROVIDER ORGANIZAT ION (PPO) BASIC FAMIL Y Jun 24, 2009 112 [id number] [phone] RUBI GARAYNETH PATIENT [place] FEP DENTAL DENTAL INSURANCE BASIC Jul 12, 2009 DENTAL [id number] DEJAHDANIKARUBI ACEVESNETH PATIENT [place] F[place] PREFERRED PROVIDER ORGANIZAT ION (PPO) BASIC FAMIL Y Jun 24, 2009 112 [id number] [phone] ABHILASH GARAY PATIENT [employer] FEP ([id number]) PRESCRIPT ION FEPRX Jun 24, 2009 [id number] [phone] ABHILASH GARAY PATIENT [place] FEP BCBS PRESCRIPT ION CAREM ARK FEPRX PLAN Nov 21, 2021 [id number] ABHILASH GARAY PATIENT [employer] FEPRX PLAN PRESCRIPT ION CAREM ARK FEPRX Nov 21, 2021 [id number] ABHILASH GARAY PATIENT [employer]-F [place] BCBS PRESCRIPT ION FEP CAREM ARK Nov 21, 2021 [id number] ABHILASH GARAY PATIENT [employer]-F EP BCBS PRESCRIPT ION FEP Jun 23, 2010 [id number] RUBI GARAYNETH PATIENT MEDICARE ([facility]) MEDICARE () PART A Feb 22, 2020 PART A [id number] ABHILASH GARAY PATIENT MEDICARE (WNR) MEDICARE (M) PART A Feb 22, 2020 PART A [id number] ABHILASH GARAY PATIENT MEDICARE (WNR) MEDICARE (M) PART A Feb 22, 2020 PART A [id number] ABHILASH GARAY PATIENT MEDICARE (WNR) MEDICARE (M) PART A Feb 22, 2020 PART A [id number] ABHILASH GARAY PATIENT MEDICARE (WNR) MEDICARE (M) PART A Feb 22, 2020 PART A [id number] ABHILASH GARAY PATIENT Selected Encounter This section includes the information on record at [place] for the Encounter. Date/Time Encounter Type Encounter Description Reason Provider Source Feb 09, 2024 02:00 PM CHIROPRACT MANJ 1-2 [facility] RAIL GRINDER ICD-10-CM M54.59 Other low back pain [facility] EUGENE [facility] Encounter Template Text not used by [place] Assessments - Encounter Diagnoses This section includes the primary and secondary diagnoses documented for the Encounter. Date/Time Primary/Secondary Diagnosis Diagnosis Name Provider Source Mar 01, 2024 08:10 AM PRIMARY Other low back pain [facility] Plan of Treatment: Future Appointments (+ [...] 19, 2024 01:00 PM AMBULATORY - MEDICINE [place] C [facility] [facility] Feb 25, 2024 11:00 AM AMBULATORY - NONE [place] [facility] [place] [facility] Mar 04, 2024 01:00 PM AMBULATORY - MEDICINE [place] C [facility] [place] [facility] Mar 09, 2024 01:00 PM AMBULATORY - MEDICINE [place] C [facility] [place] [facility] Mar 11, 2024 11:00 AM AMBULATORY - MEDICINE [place] C [facility] [place] [facility] Mar 15, 2024 12:15 PM AMBULATORY - MEDICINE [place] C [facility] [facility] Mar 25, 2024 01:00 PM AMBULATORY - MEDICINE [place] C [facility] [facility] Apr 06, 2024 10:30 AM [facility] Apr 07, 2024 03:30 PM AMBULATORY - NONE [place] [facility] [facility] Apr 08, 2024 01:00 PM AMBULATORY - MEDICINE [place] C [facility] [place] [facility] Apr 12, 2024 11:00 AM AMBULATORY - MEDICINE [place] C [facility] [place] [facility] Apr 15, 2024 10:00 AM AMBULATORY - MEDICINE [place] C [facility] [place] [facility] Apr 19, 2024 11:00 AM AMBULATORY - MEDICINE [place] C [facility] [place] [facility] Apr 22, 2024 09:00 AM AMBULATORY - MEDICINE [place] C [facility] [place] [facility] May 03, 2024 01:00 PM AMBULATORY - MEDICINE [place] C [facility] [place] [facility] May 17, 2024 01:00 PM AMBULATORY - RE[facility]AB [facility] May 28, 2024 07:30 AM AMBULATORY - MEDICINE [place] C [facility] [place] [facility] Jun 03, 2024 01:00 PM AMBULATORY - MEDICINE [place] C [facility] [place] [facility] Jun 08, 2024 03:00 PM AMBULATORY - REHAB [facility] Jun 11, 2024 08:00 AM AMBULATORY - MEDICINE [facility] Social History: [...] AM VA-TOBACCO NEVER US[facility] Tobacco Use History This section includes a history of the smoking, or tobacco-related health factors, that were collected on or before the date of the Encounter. The data comes from the [place] facility where the Encounter took place. Date/Time Smoking Status/Tobacco Use Comment F acility Aug 09, 2021 09:20 AM VA-TOBACCO NEVER USED [place] [facility] [place] [facility] Encounter Notes: All associated encounter notes This section contains the clinical notes associated to the Encounter. Date/Time Encounter Note(s) Provider Source Feb 09, 2024 01:57 PM CHIROPRACTIC NOTE: LOCAL TITLE: CHIROPRACTOR PROGRESS NOTE STANDARD TITLE: CHIROPRACTIC NOTE DATE OF NOTE: FEB 09, 2024@13:57 ENTRY DATE: FEB 09, 2024@13:57:52 AUTHOR: ARTHUR EUGENE COSIGNER: URGENCY: STATUS: COMPLETED ABHILASH GARAY is a 68 WHITE MALE with prior history of COMBAT SERVICE INDICATED: No POS: PERIOD OF SERVICE - OTHER OR NONE SERVICE BRANCH: [employer] Service Connected Disabilities with % Eligibility: Active [...] Potasium citrate HX varicose vein surgery [place] Ch[place] w C/O persistent low back pain that remains unchanged. Vet plans to begin Aqua therapy at [facility] in [place], [place] He states that he felt no change after the last visit. He does Chair Yoga and is followed by PT. Patient requested Massage therapy after hearing about it in Yoga class. He/she describes the pain as an ache [...] Prior treatment: [facility] Physical therapy currently. 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 He would like to join [employer] A man in his Yoga class told him about Massage therapy Vet does Chair Yoga at this [place] GOALS: do more physical activity - longer walking He C/O pain/ache in both knees December 31, 2023 [facility] MRI Lumbar spine Pertinent Imaging: Reviewed Radiologist's report MRI lumbar about a week ago in [place] Multi level degenerative changes of the lumbar [...] ~ Supine gluteal stretching as per palpation Objectives 02/09/24: Tenderness R SI jt and upper gluteals Hypertonic lumbar parapinal mm Restrictions L/S Treatment: active/corrective F/D mechanical lumbar traction w flex and lateral bending CMT low force AT lumbar Treatment carried out today and well tolerated The prognosis,at this time,is fair Plan: [facility] in Feb. Consult was placed to [facility] Massage therapy by PCP Low force adjustment with AT only. Patient was able to lie prone HVLA CMT is contraindicated due to evidence from MRI Short term goals include improvement in excess 25% on regional disability questionnaire and/or NRS over the first 3-4 treatment visits. It was explained to the patient that resolution of soft tissue complaints through conservative management requires compliance with at home recommendationsand avoidance of aggravating factors. Self-Care Recommendations: Patient agreed to a Consult to [employer]. continue Yoga ~Patient encouraged to engage in [...] core stability, balance, and pain modulation. Visit 3 F/U 2 visits Seek urgent care as needed. CMT: chiropractic manipulative therapy SMT: Spinal Manipulative Therapy F/D: Flexion Distraction MFR: Myofascial Release S-I: Sacroiliac MFTP: Myofascial Trigger Point NRS: Numeric Rating Scale N/T: Numbness/Tingling PIR: Post isometric relaxation /es/ [facility]E [facility] CHIROPRACTOR Signed: 02/09/2024 14:26 AR[facility]UR EUGENE CNTRL [facility]
--- OUTSIDE RECORDS SUMMARY | 2024-06-29 19:02 | XMS_ITS ---
Author Name [facility] [place] [facility] [place] Address [address] [place] [address] Care Team Providers Care Inventory Auditor Name Role Phone ABDIRAHMAN LAKE Primary Care [...] BASIC FAMIL Y Jun 24, 2009 [id number] [phone] ABHILASH GARAY PATIENT ANTHEM BCBS [place] F[place] PREFERRED PROVIDER ORGANIZAT ION (PPO) FEP BASIC FAM Jun 24, 2009 112 [id number] [phone] ABHILASH GARAY PATIENT ANTHEM BCBS [place] FEP PREFERRED PROVIDER ORGANIZAT ION (PPO) FEP BASIC FAM Jun 24, 2009 112 [id number] [phone] ABHILASH GARAY PATIENT ANTHEM [place] PREFERRED PROVIDER ORGANIZAT ION (PPO) FEP BASIC FAM Jun 24, 2009 112 [id number] [phone] ABHILASH GARAY PATIENT [place] PREFERRED PROVIDER ORGANIZAT ION (PPO) FEP BASIC FAM Jun 24, 2009 112 [id number] [phone] ABHILASH GARAY PATIENT [place]BS [place] PREFERRED PROVIDER ORGANIZAT ION (PPO) BASIC FAMIL Y Jun 24, 2009 [id number] ABHILASH GARAY PATIENT [place] F[place] PREFERRED PROVIDER ORGANIZAT ION (PPO) BASIC FAMIL Y Jun 24, 2009 [id number] ABHILASH GARAY PATIENT [place] PREFERRED PROVIDER ORGANIZAT ION (PPO) BASIC FAMIL Y Jun 24, 2009 [id number] ABHILASH GARAY PATIENT [place] F[place] DENTAL DENTAL INSURANCE BASIC Jul 12, 2009 DENTAL [id number] [phone] ABHILASH GARYA PATIENT [place] PREFERRED PROVIDER ORGANIZAT ION (PPO) BASIC FAMIL Y Jun 24, 2009 112 [id number] [phone] ABHILASH GARAY PATIENT [employer] FEP ([id number]) PRESCRIPT ION FEPRX Jun 24, 2009 [id number] [phone] ABHILASH GARAY PATIENT [employer] FEP BCBS PRESCRIPT ION CAREM ARK FEPRX PLAN Nov 21, 2021 [id number] ABHILASH GARAY PATIENT [employer] FEPRX PLAN PRESCRIPT ION CAREM ARK FEPRX Nov 21, 2021 [id number] ABHILASH GARAY PATIENT [employer]-F EP BCBS PRESCRIPT ION FEP CAREM ARK Nov 21, 2021 [id number] ABHILASH GARAY PATIENT [employer]-F EP BCBS PRESCRIPT ION FEP Jun 23, 2010 [id number] ABHILASH GARAY PATIENT MEDICARE ([place]) MEDICARE () PART A Feb 22, 2020 PART A [id number] ABHILASH GARAY PATIENT MEDICARE ([facility]) MEDICARE () PART A Feb 22, 2020 PART A [id number] ABHILASH GARAY PATIENT MEDICARE (WNR) MEDICARE (M) PART A Feb 22, 2020 PART A [id number] ABHILASH GARAY PATIENT MEDICARE (WNR) MEDICARE (M) PART A Feb 22, 2020 PART A [id number] ABHILASH GARAY PATIENT MEDICARE (WNR) MEDICARE (M) PART A Feb 22, 2020 PART A [id number] ABHILASH GARAY PATIENT Selected Encounter This section includes the information on record at [place] for the Encounter. 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 Date/Time Primary/Secondary Diagnosis Diagnosis Name Provider Source Feb 02, 2024 04:07 PM PRIMARY Other low back pain ARTHUR EUGENE [place] [facility] [place] [facility] Plan of Treatment: Future Appointments [...] Appointment Type Appointme nt Facility Name Feb 04, 2024 11:00 AM AMBULATORY - MEDICINE IN C [facility] [place] [facility] Feb 09, 2024 11:30 AM AMBULATORY - MEDICINE IN C [facility] [place] [facility] Feb 09, 2024 02:00 PM AMBULATORY - MEDICINE IN C [facility] [place] [facility] Feb 19, 2024 01:00 PM AMBULATORY - MEDICINE IN C [facility] [place] [facility] Feb 25, 2024 11:00 AM AMBULATORY - NONE [place] [facility] [place] [facility] Mar 04, 2024 01:00 PM AMBULATORY - MEDICINE [place] C [facility] [facility] Mar 09, 2024 01:00 PM AMBULATORY - MEDICINE [facility] C [facility] [place] [facility] Mar 11, 2024 11:00 AM AMBULATORY - MEDICINE [facility] C [facility] [place] [facility] Mar 15, 2024 12:15 PM AMBULATORY - MEDICINE [facility] [place] [facility] Mar 25, 2024 01:00 PM AMBULATORY - MEDICINE [facility] [place] [facility] Apr 06, 2024 10:30 AM AMBULATORY - MEDICINE [facility] Apr 07, 2024 03:30 PM AMBULATORY - NONE [facility] [place] [facility] Apr 08, 2024 01:00 PM AMBULATORY - MEDICINE [facility] [place] [facility] Apr 12, 2024 11:00 AM AMBULATORY - MEDICINE [facility] [place] [facility] Apr 15, 2024 10:00 AM AMBULATORY - MEDICINE [facility] [place] [facility] Apr 19, 2024 11:00 AM AMBULATORY - MEDICINE [facility] [place] [facility] Apr 22, 2024 09:00 AM AMBULATORY - MEDICINE [facility] [place] [facility] May 03, 2024 01:00 PM AMBULATORY - MEDICINE [place] [facility] [place] [facility] May 17, 2024 01:00 PM [facility] May 28, 2024 07:30 AM AMBULATORY - MEDICINE IN C [facility] [facility] Social History: Smoking Status (Most [...] VA-TOBACCO NEVER USED IN CNTR [facility] [facility] Tobacco Use History This section includes a history of the smoking, or tobacco-related health factors, that were collected on or before the date of the Encounter. The data comes from the [place] facility where the Encounter took place. Date/Time Smoking Status/Tobacco Use Comment F acility Aug 09, 2021 09:20 AM VA-TOBACCO NEVER USED IN CNTRL [facility] [place] [facility] Encounter Notes: All associated encounter notes This section contains the clinical notes associated to the Encounter. Date/Time Encounter Note(s) Provider Source Feb 02, 2024 02:08 PM CHIROPRACTIC NOTE: LOCAL TITLE: CHIROPRACTOR PROGRESS NOTE STANDARD TITLE: CHIROPRACTIC NOTE DATE OF NOTE: FEB 02, 2024@14:08 ENTRY DATE: FEB 02, 2024@14:08:48 AUTHOR: ARTHUR EUGENE COSIGNER: URGENCY: STATUS: COMPLETED ABHILASH GARAY is a 68 WHITE MALE with prior history of COMBAT SERVICE INDICATED: No POS: PERIOD OF SERVICE - OTHER OR NONE SERVICE BRANCH: [employer] Service Connected Disabilities with % Eligibility: Active [...] HX varicose vein surgery [place] returns to [place] Ch[place] w C/O persistent low back pain. He states that he felt no change [...] Prior treatment: [facility] Physical therapy currently. Prior medical care evaluation specialist: yes a couple of years ago which didn't help; X-rays taken Exercise/Activities: Physical therapy. He would like to join [employer] A man in his Yoga class told him about Massage therapy Vet does Chair Yoga at this [place] GOALS: do more physical activity - longer walking He C/O pain/ache in both knees December 31, 2023 [facility] MRI Lumbar spine Pertinent Imaging: Reviewed Radiologist's report MRI lumbar about a week ago in [place] Multi level degenerative changes of the lumbar [...] Supine gluteal stretching as per palpation Objectives 02/02/24: Tenderness R SI jt and psis Hypertonic lumbar parapinal mm Restrictions L/S Treatment: active/corrective Side lying massage therapy CMT low force AT lumbar Treatment carried out today and well tolerated The prognosis,at this time,is fair to good Plan: [facility] in Feb. Consult was placed to [...] Recommendations: Patient agreed to a Consult to [employer]. continue Yoga ~Patient encouraged to engage in [...] core stability, balance, and pain modulation. Visit 2 F/U 2 visits Seek urgent care as needed. CMT: chiropractic manipulative therapy SMT: Spinal Manipulative Therapy F/D: Flexion Distraction MFR: Myofascial Release S-I: Sacroiliac MFTP: Myofascial Trigger Point NRS: Numeric Rating Scale N/T: Numbness/Tingling PIR: Post isometric relaxation /es/ [facility] EUGENE [facility] CHIROPRACTOR Signed: 02/02/2024 16:07 ARTHUR EUGENE CNTRL [facility]
--- OUTSIDE RECORDS SUMMARY | 2024-06-29 19:02 | XMS_ITS | Encounter Summary ---
Author Name [facility] [place] Organization [facility] [place] Address [address] [place] [address] Care Team Providers Care Branch Billing Payroll Clerk Name Role Phone ABDIRAHMAN LAKE Primary [...] BASIC FAMIL Y Jun 24, 2009 [id number] [phone] ABHILASH GARAY PATIENT ANTHEM BCBS [place] F[place] PREFERRED PROVIDER ORGANIZAT ION (PPO) FEP BASIC FAM Jun 24, 2009 112 [id number] [phone] ABHILASH GARAY PATIENT ANTHEM BCBS [place] F[place] PREFERRED PROVIDER ORGANIZAT ION (PPO) FEP BASIC FAM Jun 24, 2009 112 [id number] [phone] ABHILASH GARAY PATIENT AN[place] PREFERRED PROVIDER ORGANIZAT ION (PPO) FEP BASIC FAM Jun 24, 2009 112 [id number] [phone] ABHILASH GARAY PATIENT [place] F[place] PREFERRED PROVIDER ORGANIZAT ION (PPO) FEP BASIC FAM Jun 24, 2009 112 [id number] [phone] RUBI GARAYNETH PATIENT [place]BS [place] FEP PREFERRED PROVIDER ORGANIZAT ION (PPO) BASIC FAMIL Y Jun 24, 2009 [id number] RUBI GARAYNETH PATIENT [place] PREFERRED PROVIDER ORGANIZAT ION (PPO) BASIC FAMIL Y Jun 24, 2009 [id number] RUBI GARAYNETH PATIENT [place] F[place] PREFERRED PROVIDER ORGANIZAT ION (PPO) BASIC FAMIL Y Jun 24, 2009 [id number] RUBI GARAYNETH PATIENT [place] F[place] DENTAL DENTAL INSURANCE BASIC Jul 12, 2009 DENTAL [id number] DEJAHDANIKARUBI ACEVESNETH PATIENT [place] F[place] PREFERRED PROVIDER ORGANIZAT ION (PPO) BASIC FAMIL Y Jun 24, 2009 [id number] [phone] ABHILASH GARAY PATIENT [place] FEP ([id number]) PRESCRIPT ION FEPRX Jun 24, 2009 [id number] [phone] ABHILASH GARAY PATIENT [place] FEP BCBS PRESCRIPT ION CAREM ARK FEPRX PLAN Nov 21, 2021 [id number] ABHILASH GARAY PATIENT [place] FEPRX PLAN PRESCRIPT ION CAREM ARK FEPRX Nov 21, 2021 [id number] ABHILASH GARAY PATIENT [place]-F EP BCBS PRESCRIPT ION FEP CAREM ARK Nov 21, 2021 [id number] ABHILASH GARAY PATIENT [place]-F EP BCBS PRESCRIPT ION FEP Jun 23, 2010 [id number] RUBI GARAYNETH PATIENT MEDICARE ([facility]) MEDICARE () PART A Feb 22, 2020 PART A [id number] ABHILASH GARAY PATIENT MEDICARE (WNR) MEDICARE (M) PART A Feb 22, 2020 PART A [id number] ABHILASH GARAY PATIENT MEDICARE (WNR) MEDICARE (M) PART A Feb 22, 2020 PART A [id number] ABHILASH GARAY PATIENT MEDICARE (WNR) MEDICARE (M) PART A Feb 22, 2020 PART A [id number] ABHILASH GARAY PATIENT MEDICARE (WNR) MEDICARE (M) PART A Feb 22, 2020 PART A [id number] ABHILASH GARAY PATIENT Selected Encounter This section includes the information on record at [place] for the Encounter. Date/Time Encounter Type Encounter Description Reason Pro vider Source Feb 02, 2024 03:12 PM Outpatient Encounter ADMIN PAT ACTIVTIES (MASNONCT) [...] 04, 2024 11:00 AM AMBULATORY - MEDICINE [place] [facility] [place] [facility] Feb 09, 2024 11:30 AM AMBULATORY - MEDICINE [place] [facility] [place] [facility] Feb 09, 2024 02:00 PM AMBULATORY - MEDICINE [place] [facility] [facility] Feb 19, 2024 01:00 PM AMBULATORY - MEDICINE [place] [facility] [place] [facility] Feb 25, 2024 11:00 AM AMBULATORY - NONE [place] [facility] [place] [facility] Mar 04, 2024 01:00 PM AMBULATORY - MEDICINE [place] [facility] [place] [facility] Mar 09, 2024 01:00 PM AMBULATORY - MEDICINE [place] [facility] [place] [facility] Mar 11, 2024 11:00 AM AMBULATORY - MEDICINE [place] [facility] [place] [facility] Mar 15, 2024 12:15 PM AMBULATORY - MEDICINE [place] [facility] [place] [facility] Mar 25, 2024 01:00 PM AMBULATORY - MEDICINE [place] [facility] [place] [facility] Apr 06, 2024 10:30 AM AMBULATORY - MEDICINE AHSAN MONTEZ Apr 07, 2024 03:30 PM AMBULATORY - NONE [place] [facility] [place] [facility] Apr 08, 2024 01:00 PM AMBULATORY - MEDICINE [place] [facility] [place] [facility] Apr 12, 2024 11:00 AM AMBULATORY - MEDICINE [place] [facility] [place] [facility] Apr 15, 2024 10:00 AM AMBULATORY - MEDICINE [place] [facility] [place] [facility] Apr 19, 2024 11:00 AM AMBULATORY - MEDICINE [place] [facility] [place] [facility] Apr 22, 2024 09:00 AM AMBULATORY - MEDICINE [place] C [facility] [place] [facility] May 03, 2024 01:00 PM AMBULATORY - MEDICINE [place] [facility] [place] [facility] May 17, 2024 01:00 [facility] [place] May 28, 2024 07:30 AM AMBULATORY - MEDICINE [place] [facility] [place] [facility] Social History: Smoking Status [...] 09:12 AM [facility] Tobacco Use History This section includes a history of the smoking, or tobacco-related health factors, that were collected on or before the date of the Encounter. The data comes from the [place] facility where the Encounter took place. Date/Time Smoking Status/Tobacco Use Comment Gilberto boston Aug 09, 2021 09:20 AM [facility] Encounter Notes: All associated encounter notes This section contains the clinical notes associated to the Encounter. Date/Time Encounter Note(s) Provider Source Feb 03, 2024 01:08 PM ADDENDUM: LOCAL TITLE: Addendum STANDARD TITLE: ADDENDUM DATE OF NOTE: FEB 03, 2024@13:08:50 ENTRY DATE: FEB 03, 2024@13:08:50 AUTHOR: FERCHO MELLO COSIGNER: URGENCY: STATUS: COMPLETED Adding AMSA Logging Superintendent to review and advise. /yunior/ FERCHO MELLO RN REGISTERED NURSE Signed: 02/03/2024 13:09 Receipt Acknowledged By: 02/03/2024 14:07 /es/ Randi Ptitman ADVANCED STRANDING MACHINE OPERATOR for [facility] [place] === --- Original Document --- 02/02/24 CCC: SCHEDULING ADMINISTRATION: Patient Demographics Patient Name: ABHILASH GARAY Patient Primary Phone: [phone] Patient Primary Address: [address] [place] [address] Patient : 1955 Patient Age: 68 Caller/Recipient Relation to Patient: Self Administrative Administrative Note Reason: Other Administrative Note Comments: Thicket is calling, he has not gotten a phone call back yet to discuss the issues about appt reminder cards that are not being sent. Please see note 01/20. Thicket declined the need for nurse triage at this time. Please call the to update @ [phone] /es/ RADHIKA CHÁVEZ [facility] AMSA Signed: 02/02/2024 15:12 Receipt Acknowledged By: 02/03/2024 13:09 /es/ FERCHO MELLO RN REGISTERED NURSE for RADHIKA GOMEZ 02/02/2024 15:35 /es/ EUGENIE SALVADOR LPN Licensed Practical Nurse 02/03/2024 ADDENDUM STATUS: UNSIGNED You may not VIEW this UNSIGNED Addendum. [facility] Feb 02, 2024 03:12 PM ADMINISTRATIVE NOTE: LOCAL TITLE: CCC: SCHEDULING ADMINISTRATION STANDARD TITLE: ADMINISTRATIVE NOTE DATE OF NOTE: FEB 02, 2024@15:12:06 ENTRY DATE: FEB 02, 2024@15:12:06 AUTHOR: RADHIKA GALE COSIGNER: URGENCY: STATUS: COMPLETED CCC: SCHEDULING ADMINISTRATION Has ADDENDA Patient Demographics Patient Name: ABHILASH GARAY Patient Primary Phone: [phone] Patient Primary Address: [address] [place] [address] Patient : 1955 Patient Age: 68 Caller/Recipient Relation to Patient: Self Administrative Administrative Note Reason: Other Administrative Note Comments: Thicket is calling, he has not gotten a phone call back yet to discuss the issues about appt reminder cards that are not being sent. Please see note 01/20. Thicket declined the need for nurse triage at this time. Please call the to update @ [phone] /yunior/ RADHIKA GALE VISN 1 [facility] AMSA Signed: 02/02/2024 15:12 Receipt Acknowledged By: 02/03/2024 13:09 /yunior/ FERCHO MELLO RN REGISTERED NURSE for RADHIKA GOMEZ 02/02/2024 15:35 /es/ EUGENIE SALVADOR LPN Licensed Practical Nurse 02/03/2024 ADDENDUM STATUS: COMPLETED Adding AMSA Logging Superintendent to review and advise. /yunior/ FERCHO MELLO RN REGISTERED NURSE Signed: 02/03/2024 13:09 Receipt Acknowledged By: 02/03/2024 14:07 /es/ Randi Pittman ADVANCED STRANDING MACHINE OPERATOR for BRIAN ROD 02/03/2024 ADDENDUM STATUS: COMPLETED An email was sent to [facility] regarding the issue Vet is experiencing. /yunior/ Randi Pittman ADVANCED STRANDING MACHINE OPERATOR Signed: 02/03/2024 14:09 RADHIKA GALE [facility]
--- OUTSIDE RECORDS SUMMARY | 2024-06-29 19:02 | XMS_ITS | Encounter Summary ---
Author Name [facility] [place] [facility] [place] [facility] [place] Address [address] [place] [address] Care Team Providers Care Bath Mixer Name Role Phone ABDIRAHMAN LAKE Primary Care [...] BASIC FAMIL Y Jun 24, 2009 112 [id number] [phone] ABHILASH GARAY PATIENT ANTHEM BCBS [place] F[place] PREFERRED PROVIDER ORGANIZAT ION (PPO) FEP BASIC FAM Jun 24, 2009 112 [id number] [phone] ABHILASH GARAY PATIENT ANTHEM [place]BS [place] F[place] PREFERRED PROVIDER ORGANIZAT ION (PPO) FEP BASIC FAM Jun 24, 2009 112 [id number] [phone] ABHILASH GARAY PATIENT [place]THE[place] PREFERRED PROVIDER ORGANIZAT ION (PPO) FEP BASIC FAM Jun 24, 2009 112 [id number] [phone] ABHILASH GARAY PATIENT [place] PREFERRED PROVIDER ORGANIZAT ION (PPO) FEP BASIC FAM Jun 24, 2009 112 [id number] [phone] ABHILASH GARAY PATIENT [place] F[place] PREFERRED PROVIDER ORGANIZAT ION (PPO) BASIC FAMIL Y Jun 24, 2009 [id number] ABHILASH GARAY PATIENT [place] PREFERRED PROVIDER ORGANIZAT ION (PPO) BASIC FAMIL Y Jun 24, 2009 [id number] ABHILASH GARAY PATIENT [place] PREFERRED PROVIDER ORGANIZAT ION (PPO) BASIC FAMIL Y Jun 24, 2009 112 [id number] [phone] ABHILASH GARAY PATIENT [place] F[place] DENTAL DENTAL INSURANCE BASIC Jul 12, 2009 DENTAL [id number] [phone] ABHILASH GARAY PATIENT [place] PREFERRED PROVIDER ORGANIZAT ION (PPO) BASIC FAMIL Y Jun 24, 2009 112 [id number] [phone] ABHILASH GARAY PATIENT [place] FEP ([id number]) PRESCRIPT ION FEPRX Jun 24, 2009 [id number] [phone] ABHILASH GARAY PATIENT [place] FEP BCBS PRESCRIPT ION CAREM ARK FEPRX PLAN Nov 21, 2021 [id number] ABHILASH GARAY PATIENT [place] FEPRX PLAN PRESCRIPT ION CAREM ARK FEPRX Nov 21, 2021 [id number] ABHILASH GARAY PATIENT [place]-F EP BCBS PRESCRIPT ION FEP CAREM ARK Nov 21, 2021 [id number] ABHILASH GARAY PATIENT [place]-F EP BCBS PRESCRIPT ION FEP Jun 23, 2010 [id number] ABHILASH GARAY PATIENT MEDICARE (WN) MEDICARE () PART A Feb 22, 2020 PART A [id number] ABHILASH GARAY PATIENT MEDICARE ([facility]) MEDICARE (M) PART A Feb 22, 2020 PART A [id number] ABHILASH GARAY PATIENT MEDICARE (WNR) MEDICARE (M) PART A Feb 22, 2020 PART A [id number] ABHILASH GARAY PATIENT MEDICARE (WNR) MEDICARE (M) PART A Feb 22, 2020 PART A [id number] ABHILASH GARAY PATIENT MEDICARE (WNR) MEDICARE (M) PART A Feb 22, 2020 PART A [id number] ABHILASH GARAY PATIENT Selected Encounter This section includes the information on record at [place] for the Encounter. Date/Time Encounter Type Encounter Description Reason Provider Source Feb 09, 2024 02:12 PM FIT SPECTACLES MULTIFOCAL OPTOMETRY ICD-10-CM Z46.0 Encounter for fit/adjst of spectacles and contact lenses DARIEL MYERS Encounter Template Text not used by [place] Assessments - Encounter Diagnoses This section includes the primary and secondary diagnoses documented for the Encounter. Date/Time Primary/Secondary Diagnosis Diagnosis Name Provider Source Feb 09, 2024 02:12 PM PRIMARY Encounter for fit/adjst of spectacles and contact lenses DONA SIM [place] [facility] [place] [facility] Plan of Treatment: Future Appointments (+ [...] 19, 2024 01:00 PM AMBULATORY - MEDICINE [place] C [facility] [place] [facility] Feb 25, 2024 11:00 AM AMBULATORY - NONE [place] [facility] [place] [facility] Mar 04, 2024 01:00 PM AMBULATORY - MEDICINE [place] C [facility] [place] [facility] Mar 09, 2024 01:00 PM AMBULATORY - MEDICINE [place] C [facility] [facility] Mar 11, 2024 11:00 AM AMBULATORY - MEDICINE [place] C [facility] [place] [facility] Mar 15, 2024 12:15 PM AMBULATORY - MEDICINE [place] [facility] [facility] Mar 25, 2024 01:00 PM AMBULATORY - MEDICINE [place] [facility] [facility] Apr 06, 2024 10:30 AM AMBULATORY - MEDICINE [facility] Apr 07, 2024 03:30 PM AMBULATORY - NONE [place] [facility] [facility] Apr 08, 2024 01:00 PM AMBULATORY - MEDICINE [place] [facility] [facility] Apr 12, 2024 11:00 AM AMBULATORY - MEDICINE [place] [facility] [facility] Apr 15, 2024 10:00 AM AMBULATORY - MEDICINE [place] [facility] [place] [facility] Apr 19, 2024 11:00 AM AMBULATORY - MEDICINE [place] [facility] [place] [facility] Apr 22, 2024 09:00 AM AMBULATORY - MEDICINE [place] [facility] [place] [facility] May 03, 2024 01:00 PM AMBULATORY - MEDICINE [place] [facility] [place] [facility] May 17, 2024 01:00 PM AMBULATORY - REHAB MEDICIN [facility] May 28, 2024 07:30 AM AMBULATORY - MEDICINE [place] C [facility] [place] [facility] Jun 03, 2024 01:00 PM AMBULATORY - MEDICINE [place] [facility] [place] [facility] Jun 08, 2024 03:00 PM [facility] Jun 11, 2024 08:00 AM AMBULATORY - MEDICINE [facility] Social History: [...] 2023 09:12 AM VA-TOBACCO NEVER USED [place] [facility] Tobacco Use History This section includes a history of the smoking, or tobacco-related health factors, that were collected on or before the date of the Encounter. The data comes from the [place] facility where the Encounter took place. Date/Time Smoking Status/Tobacco Use Comment Gilberto boston Aug 09, 2021 09:20 AM [facility] Encounter Notes: All associated encounter notes This section contains the clinical notes associated to the Encounter. Date/Time Encounter Note(s) Provider Source Feb 09, 2024 02:12 PM OPTOMETRY NOTE: LOCAL TITLE: OPTOMETRY NOTE STANDARD TITLE: OPTOMETRY NOTE DATE OF NOTE: FEB 09, 2024@14:12 ENTRY DATE: FEB 09, 2024@14:12:21 AUTHOR: LEELEE ARROYO EXP COSIGNER: URGENCY: STATUS: COMPLETED OPTOMETRY NOTE Has ADDENDA The quote provided below is for informational purposes only. Please verify prior to the creation of a purchase order. ABHILASH PONDENRIQUE 5814 RX INFORMATION OD +1.25 -0.50 X85 Add:+2.50 Pzm:0.00 Dir: Prz2:0.00 Dir2: OS +1.00 -0.50 X65 Add:+2.50 Pzm:0.00 Dir: Prz2:0.00 Dir2: FITTING INFORMATION FPD: NPD: [place]:R:32.5 L:34.5 SEG HT:R:19 L:19 Tint:None Shade:None VA Billable Items FRAME: S[address] [facility] [id number] Right Lens: PLASTIC VA PROGRESSIVE PHOTOCHROMIC LONG 1.498 PLASTIC CR39 Left Lens: PLASTIC VA PROGRESSIVE PHOTOCHROMIC LONG 1.498 PLASTIC CR39 /oriana ARROYO DIRECTOR INDEPENDENT Signed: 02/09/2024 14:12 Receipt Acknowledged By: 02/09/2024 14:14 /yunior/ Dona Sim LPN Licensed Practical Nurse 02/09/2024 ADDENDUM STATUS: COMPLETED PDS meat smoker fit 1 PAL eyeglasses on 02/09/2024. OPT HT entered consult(s) as requested for provider signature. /oriana Sim LPN Licensed Practical Nurse Signed: 02/09/2024 14:17 LEELEE ARROYO [facility]
--- OUTSIDE RECORDS SUMMARY | 2024-06-29 19:02 | XMS_ITS | Encounter Summary ---
Author Name [facility] [facility] [place] [facility] [place] Address [address] [place] [address] Care Team Providers Care Nuisance Animal Damage Control Agent Name Role Phone ABDIRAHMAN LAKE Primary Care [...] BASIC FAMIL Y Jun 24, 2009 112 [id number] [phone] ABHILASH GARAY PATIENT ANTHEM [place]BS [place] PREFERRED PROVIDER ORGANIZAT ION (PPO) FEP BASIC FAM Jun 24, 2009 112 [id number] [phone] ABHILASH GARAY PATIENT ANTHEM [place]BS [place] PREFERRED PROVIDER ORGANIZAT ION (PPO) FEP BASIC FAM Jun 24, 2009 112 [id number] [phone] ABHILASH GARAY PATIENT ANTHE[place] PREFERRED PROVIDER ORGANIZAT ION (PPO) FEP BASIC FAM Jun 24, 2009 112 [id number] [phone] ABHILASH GARAY PATIENT [place] PREFERRED PROVIDER ORGANIZAT ION (PPO) FEP BASIC FAM Jun 24, 2009 112 [id number] [phone] RUBI GARAYNETH PATIENT BCBS [place] F[place] PREFERRED PROVIDER ORGANIZAT ION (PPO) BASIC FAMIL Y Jun 24, 2009 112 [id number] [phone] RUBI GARAYNETH PATIENT [place] PREFERRED PROVIDER ORGANIZAT ION (PPO) BASIC FAMIL Y Jun 24, 2009 112 [id number] RUBI GARAYNETH PATIENT [place] PREFERRED PROVIDER ORGANIZAT ION (PPO) BASIC FAMIL Y Jun 24, 2009 112 [id number] RUBI GARAYNETH PATIENT [place] F[place] DENTAL DENTAL INSURANCE BASIC Jul 12, 2009 DENTAL [id number] DEJAHDANIKARUBI ACEVESNETH PATIENT [place] PREFERRED PROVIDER ORGANIZAT ION (PPO) BASIC FAMIL Y Jun 24, 2009 [id number] [phone] ABHILASH GARAY PATIENT [place] FEP ([id number]) PRESCRIPT ION FEPRX Jun 24, 2009 [id number] [phone] ABHILASH GARAY PATIENT [place] FEP BCBS PRESCRIPT ION CAREM ARK FEPRX PLAN Nov 21, 2021 [id number] ABHILASH GARAY PATIENT [place] FEPRX PLAN PRESCRIPT ION CAREM ARK FEPRX Nov 21, 2021 [id number] [phone] ABHILASH GARAY PATIENT [place]-F EP BCBS PRESCRIPT ION FEP CAREM ARK Nov 21, 2021 [id number] ABHILASH GARAY PATIENT [place]-F EP BCBS PRESCRIPT ION FEP Jun 23, 2010 [id number] RUBI GARAYNETH PATIENT MEDICARE ([facility]) MEDICARE () PART A Feb 22, 2020 PART A [id number] NV71 [phone] ABHILASH GARAY PATIENT MEDICARE (WNR) MEDICARE (M) PART A Feb 22, 2020 PART A [id number] ABHILASH GARAY PATIENT MEDICARE (WNR) MEDICARE (M) PART A Feb 22, 2020 PART A [id number] ABHILASH GARAY PATIENT MEDICARE (WNR) MEDICARE (M) PART A Feb 22, 2020 PART A [id number] ABHILASH GARAY PATIENT MEDICARE (WNR) MEDICARE (M) PART A Feb 22, 2020 PART A [id number] NV71 [phone] ABHILASH GARAY PATIENT Selected Encounter This section includes the information on record at [place] for the Encounter. Date/Time Encounter Type Encounter Description Reason Pro vider Source Feb 04, 2024 09:54 AM Outpatient Encounter ADMIN PAT ACTIVTIES (MASNONCT) IHE Encounter Template Text not used by CO Plan of Treatment: Future Appointments (+ 6 months) and Future Tests (+/- 45 days) The Plan of Treatment section includes future care activities for the patient from all [place] treatmentfacilities. This section includes future appointments and [...] - MEDICINE [place] [facility] [facility] Feb 09, 2024 02:00 PM AMBULATORY - MEDICINE [place] [facility] [place] [facility] Feb 19, 2024 01:00 PM AMBULATORY - MEDICINE [place] [facility] [place] [facility] Feb 25, 2024 11:00 AM AMBULATORY - NONE [place] [facility] [facility] Mar 04, 2024 01:00 PM AMBULATORY - MEDICINE [place] [facility] [place] [facility] Mar 09, 2024 01:00 PM AMBULATORY - MEDICINE [place] [facility] [place] [facility] Mar 11, 2024 11:00 AM AMBULATORY - MEDICINE [place] [facility] [place] [facility] Mar 15, 2024 12:15 PM AMBULATORY - MEDICINE [place] [facility] [place] [facility] Mar 25, 2024 01:00 PM AMBULATORY - MEDICINE [facility] [place] [facility] Apr 06, 2024 10:30 AM AMBULATORY - MEDICINE [place] Apr 07, 2024 03:30 PM AMBULATORY - NONE [place] [facility] Apr 08, 2024 01:00 PM AMBULATORY - MEDICINE [place] [facility] [place] [facility] Apr 12, 2024 11:00 AM AMBULATORY - MEDICINE [facility] [place] [facility] Apr 15, 2024 10:00 AM AMBULATORY - MEDICINE [place] [facility] [place] [facility] Apr 19, 2024 11:00 AM AMBULATORY - MEDICINE [place] [facility] [place] [facility] Apr 22, 2024 09:00 AM AMBULATORY - MEDICINE [facility] [place] [facility] May 03, 2024 01:00 PM AMBULATORY - MEDICINE [place] [facility] [place] [facility] May 17, 2024 01:00 PM AMBULATORY - [place]AB MEDICIN [place] May 28, 2024 07:30 AM AMBULATORY - MEDICINE [place] [facility] Jun 03, 2024 01:00 PM AMBULATORY - [...] 08, 2023 09:12 AM VA-TOBACCO [facility] Tobacco Use History This section includes a history of the smoking, or tobacco-related health factors, that were collected on or before the date of the Encounter. The data comes from the [place] facility where the Encounter took place. Date/Time Smoking Status/Tobacco Use Comment Gilberto boston Aug 09, 2021 09:20 AM VA-TOBACCO [facility] Encounter Notes: All associated encounter notes This section contains the clinical notes associated to the Encounter. Date/Time Encounter Note(s) Provider Source Feb 04, 2024 11:34 AM ADDENDUM: LOCAL TITLE: Addendum STANDARD TITLE: ADDENDUM DATE OF NOTE: FEB 04, 2024@11:34:54 ENTRY DATE: FEB 04, 2024@11:34:54 AUTHOR: FERCHO MELLO COSIGNER: URGENCY: STATUS: COMPLETED Adding Med Director for FYI to the [facility]'s statements about care. /yunior/ FERCHO MELLO RN REGISTERED NURSE Signed: 02/04/2024 11:35 Receipt Acknowledged By: 02/05/2024 14:28 /yunior/ GE PEREIRA NP NURSE PRACTITIONER === --- Original Document --- 02/04/24 CCC: SCHEDULING ADMINISTRATION: Patient Demographics Patient Name: ABHILASH GARAY Patient Primary Phone: [phone] Patient Primary Address: [address] [place] [address] Patient : 1955 Patient Age: 68 Call Back Number: [phone] Caller/Recipient Relation to Patient: Self Administrative Administrative Note Reason: Other Administrative Note Comments: calls in today, stating that [facility]. He states that he has been trying to speak with someone regarding his complaint of not getting appointment cards in the mail. He states that he DOES NOT want letters or texts, he wants the appointment cards. I was going to offer him the direct line to the patient advocate office as well as transfer him over to that office, but he stated that other people have tried to transfer him and it has done nothing and just like them I have proven to be no help. He stated that the staff at the CO is more concerned with helping with homeless, who are veterans also but he feels as though because he is not homeless he doesn't matter. I told him that no one said that and he said that is how he feels. I informed him that I was sorry that he felt that way. To that, his response was very frustrated and short about the staff here does not actually care about the quality of healthcare that our veterans get. Denied triage transfer. IMPORTANT: This note was created by [facility] Clinical Contact Center staff. Please do not alert the staff member by adding them as a signer for future communications. Alerts are not monitored by this user. /yunior/ SULMA CHÁVEZ 1 [facility] Signed: 02/04/2024 09:54 Receipt Acknowledged By: 02/04/2024 10:10 /yunior/ LUNA LOPEZ ADVANCED TRAILERS AND MOTOR HOMES SALESPERSON 02/04/2024 10:02 /yunior/ EUGENIE SALVADOR LPN Licensed Practical Nurse 02/04/2024 ADDENDUM STATUS: COMPLETED ADDENDUM FEBRUARY 02, 2024 ADDRESSED REGARDING THIS ISSUE. /oriana SALVADOR LPN Licensed Practical Nurse Signed: 02/04/2024 10:05 02/04/2024 ADDENDUM STATUS: COMPLETED THIS PARISH VISITOR HAD SPOKEN TO TO CANCEL F2F APPT WITH CWM/SO/PACT EIGHT PROVIDER ON 03/24/2024 AT 11:00AM. HAS F2F ANNUAL WITH CWM/SO/PACT EIGHT PROVIDER ON 04/06/2024 AT 10:30AM. ALSO WOULD LIKE A RETURNED CALL FROM CWM/SO/PACT EIGHT NURSE OR PROVIDER TO SPEAK ABOUT NEUROPATHY IN BOTH FEET. CAN BE REACHED AT [phone]. /oriana LOPEZ ADVANCED TRAILERS AND MOTOR HOMES SALESPERSON Signed: 02/04/2024 10:13 Receipt Acknowledged By: * AWAITING SIGNATURE * RADHIKA GOMEZ * AWAITING SIGNATURE * EUGENIE SALVADOR 02/04/2024 ADDENDUM STATUS: COMPLETED THIS PARISH VISITOR WILL MAIL APPT CARD FOR ANNUAL APPT ON 04/06/2024 AT 10:30AM WITH CWM/SO/PACT EIGHT PROVIDER. /yunior/ LUNA LOPEZ ADVANCED TRAILERS AND MOTOR HOMES SALESPERSON Signed: 02/04/2024 10:14 02/05/2024 ADDENDUM STATUS: UNSIGNED You may not VIEW this UNSIGNED Addendum. FERCHO MELLO [facility] [place] [facility] Feb 04, 2024 10:10 AM ADDENDUM: LOCAL TITLE: Addendum STANDARD TITLE: ADDENDUM DATE OF NOTE: FEB 04, 2024@10:10:14 ENTRY DATE: FEB 04, 2024@10:10:15 AUTHOR: LINDA LOPEZ COSIGNER: URGENCY: STATUS: COMPLETED THIS PARISH VISITOR HAD SPOKEN TO TO CANCEL F2F APPT WITH CWM/SO/PACT EIGHT PROVIDER ON 03/24/2024 AT 11:00AM. HAS F2F ANNUAL WITH CWM/SO/PACT EIGHT PROVIDER ON 04/06/2024 AT 10:30AM. ALSO WOULD LIKE A RETURNED CALL FROM CWM/SO/PACT EIGHT NURSE OR PROVIDER TO SPEAK ABOUT NEUROPATHY IN BOTH FEET. CAN BE REACHED AT [phone]. /yunior/ LUNA LOPEZ [employer]VANCED TRAILERS AND MOTOR HOMES SALESPERSON Signed: 02/04/2024 10:13 Receipt Acknowledged By: 02/16/2024 13:38 /es/ STEF BAKERN RN-BC REGISTERED NURSE 02/19/2024 11:03 /es/ EUGENIE SALVADOR LPN Licensed Practical Nurse === --- Original Document --- 02/04/24 CCC: SCHEDULING ADMINISTRATION: Patient Demographics Patient Name: ABHILASH GARAY Patient Primary Phone: [phone] Patient Primary Address: [address] [place] [address] Patient : 1955 Patient Age: 68 Call Back Number: [phone] Caller/Recipient Relation to Patient: Self Administrative Administrative Note Reason: Other Administrative Note Comments: calls in today, stating that [facility] now. He states that he has been trying to speak with someone regarding his complaint of not getting appointment cards in the mail. He states that he DOES NOT want letters or texts, he wants the appointment cards. I was going to offer him the direct line to the patient advocate office as well as transfer him over to that office, but he stated that other people have tried to transfer him and it has done nothing and just like them I have proven to be no help. He stated that the staff at the CO is more concerned with helping with homeless, who are veterans also but he feels as though because he is not homeless he doesn't matter. I told him that no one said that and he said that is how he feels. I informed him that I was sorry that he felt that way. To that, his response was very frustrated and short about the staff here does not actually care about the quality of healthcare that our veterans get. Denied triage transfer. IMPORTANT: This note was created by [facility] Clinical Contact Center staff. Please do not alert the staff member by adding them as a signer for future communications. Alerts are not monitored by this user. /es/ SULMA CHÁVEZ 1 [facility] Signed: 02/04/2024 09:54 Receipt Acknowledged By: 02/04/2024 10:10 /yunior/ LUNA LOPEZ ADV[employer] TRAILERS AND MOTOR HOMES SALESPERSON 02/04/2024 10:02 /yunior/ EUGENIE SALVADOR LPN Licensed Practical Nurse 02/04/2024 ADDENDUM STATUS: COMPLETED ADDENDUM FEBRUARY 02, 2024 ADDRESSED REGARDING THIS ISSUE. /yunior/ EUGENIE SALVADOR LPN Licensed Practical Nurse Signed: 02/04/2024 10:05 02/04/2024 ADDENDUM STATUS: COMPLETED THIS PARISH VISITOR WILL MAIL APPT CARD FOR ANNUAL APPT ON 04/06/2024 AT 10:30AM WITH CWM/SO/PACT EIGHT PROVIDER. /yunior/ LUNA LOPEZ ADVANCED TRAILERS AND MOTOR HOMES SALESPERSON Signed: 02/04/2024 10:14 02/04/2024 ADDENDUM STATUS: COMPLETED Adding Med Director for FYI to the [facility]'s statements about care. /yunior/ FERCHO MELLO RN REGISTERED NURSE Signed: 02/04/2024 11:35 Receipt Acknowledged By: 02/05/2024 14:28 /es/ GE PEREIRA NP NURSE PRACTITIONER 02/05/2024 ADDENDUM STATUS: COMPLETED Notification regarding appointments with appointment cards has been addressed. The patient will be receiving appointment cards as notification. We will also continue to attempt phone calls to ensure the patient receives the information. /yunior/ GE PEREIRA NP NURSE PRACTITIONER Signed: 02/05/2024 14:28 CANDICELINDA NEWBY [place] [facility] [facility] Feb 04, 2024 09:54 AM ADMINISTRATIVE NOTE: LOCAL TITLE: CCC: SCHEDULING ADMINISTRATION STANDARD TITLE: ADMINISTRATIVE NOTE DATE OF NOTE: FEB 04, 2024@09:54:14 ENTRY DATE: FEB 04, 2024@09:54:15 AUTHOR: SULMA JEFFERSON COSIGNER: URGENCY: STATUS: COMPLETED CCC: SCHEDULING ADMINISTRATION Has ADDENDA Patient Demographics Patient Name: ABHILASH GARAY Patient Primary Phone: [phone] Patient Primary Address: [address] [place] [address] Patient : 1955 Patient Age: 68 Call Back Number: [phone] Caller/Recipient Relation to Patient: Self Administrative Administrative Note Reason: Other Administrative Note Comments: calls in today, stating that [facility]. He states that he has been trying to speak with someone regarding his complaint of not getting appointment cards in the mail. He states that he DOES NOT want letters or texts, he wants the appointment cards. I was going to offer him the direct line to the patient advocate office as well as transfer him over to that office, but he stated that other people have tried to transfer him and it has done nothing and just like them I have proven to be no help. He stated that the staff at the CO is more concerned with helping with homeless, who are veterans also but he feels as though because he is not homeless he doesn't matter. I told him that no one said that and he said that is how he feels. I informed him that I was sorry that he felt that way. To that, his response was very frustrated and short about the staff here does not actually care about the quality of healthcare that our veterans get. Denied triage transfer. IMPORTANT: This note was created by [facility] Clinical Contact Center staff. Please do not alert the staff member by adding them as a signer for future communications. Alerts are not monitored by this user. /yunior/ SULMA CHÁVEZ 1 [facility] Signed: 02/04/2024 09:54 Receipt Acknowledged By: 02/04/2024 10:10 /yunior/ LUNA LOPEZ [employer] HOMES SALESPERSON 02/04/2024 10:02 /yunior/ EUGENIE SALVADOR LPN Licensed Practical Nurse 02/04/2024 ADDENDUM STATUS: COMPLETED ADDENDUM FEBRUARY 02, 2024 ADDRESSED REGARDING THIS ISSUE. /yunior/ EUGENIE SALVADOR LPN Licensed Practical Nurse Signed: 02/04/2024 10:05 02/04/2024 ADDENDUM STATUS: COMPLETED THIS PARISH VISITOR HAD SPOKEN TO TO CANCEL F2F APPT WITH CWM/SO/PACT EIGHT PROVIDER ON 03/24/2024 AT 11:00AM. HAS F2F ANNUAL WITH CWM/SO/PACT EIGHT PROVIDER ON 04/06/2024 AT 10:30AM. ALSO WOULD LIKE A RETURNED CALL FROM CWM/SO/PACT EIGHT NURSE OR PROVIDER TO SPEAK ABOUT NEUROPATHY IN BOTH FEET. CAN BE REACHED AT [phone]. /yunior/ LUNA LOPEZ [employer] AND MOTOR HOMES SALESPERSON Signed: 02/04/2024 10:13 Receipt Acknowledged By: * AWAITING SIGNATURE * RADHIKA GOMEZ * AWAITING SIGNATURE * EUGENIE SALVADOR 02/04/2024 ADDENDUM STATUS: COMPLETED THIS PARISH VISITOR WILL MAIL APPT CARD FOR ANNUAL APPT ON 04/06/2024 AT 10:30AM WITH CWM/SO/PACT EIGHT PROVIDER. /yunior/ LUNA LOPEZ ADV[employer]ED TRAILERS AND MOTOR HOMES SALESPERSON Signed: 02/04/2024 10:14 02/04/2024 ADDENDUM STATUS: COMPLETED Adding Med Director for FY to the 's statements about care. /yunior/ FERCHO MELLO RN REGISTERED NURSE Signed: 02/04/2024 11:35 Receipt Acknowledged By: 02/05/2024 14:28 /es/ GE PEREIRA NP NURSE PRACTITIONER 02/05/2024 ADDENDUM STATUS: COMPLETED Notification regarding appointments with appointment cards has been addressed. The patient will be receiving appointment cards as notification. We will also continue to attempt phone calls to ensure the patient receives the information. /yunior/ GE PEREIRA NP NURSE PRACTITIONER Signed: 02/05/2024 14:28 SULMA JEFFERSON [facility]
--- OUTSIDE RECORDS SUMMARY | 2024-06-29 19:02 | XMS_ITS | Encounter Summary ---
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 Name Role Phone ABDIRAHMAN LAKE Primary [...] BASIC FAMIL Y Jun 24, 2009 112 [id number] [phone] ABHILASH GARAY PATIENT ANTHEM BCBS [place] FEP PREFERRED PROVIDER ORGANIZAT ION (PPO) FEP BASIC FAM Jun 24, 2009 112 [id number] [phone] ABHILASH GARAY PATIENT ANTHEM [place]BS [place] F[place] PREFERRED PROVIDER ORGANIZAT ION (PPO) FEP BASIC FAM Jun 24, 2009 112 [id number] [phone] ABHILASH GARAY PATIENT [place] PREFERRED PROVIDER ORGANIZAT ION (PPO) FEP BASIC FAM Jun 24, 2009 112 [id number] [phone] ABHILASH GARAY PATIENT [place] PREFERRED PROVIDER ORGANIZAT ION (PPO) FEP BASIC FAM Jun 24, 2009 112 [id number] [phone] ABHILASH GARAY PATIENT [place] PREFERRED PROVIDER ORGANIZAT ION (PPO) BASIC FAMIL Y Jun 24, 2009 112 [id number] ABHILASH GARAY PATIENT [place]EP PREFERRED PROVIDER ORGANIZAT ION (PPO) BASIC FAMIL Y Jun 24, 2009 112 [id number] ABHILASH GARAY PATIENT [place] PREFERRED PROVIDER ORGANIZAT ION (PPO) BASIC FAMIL Y Jun 24, 2009 112 [id number] [phone] ABHILASH GARAY PATIENT [place] F[place] DENTAL DENTAL INSURANCE BASIC Jul 12, 2009 DENTAL [id number] ABHILASH GARAY PATIENT [place] PREFERRED PROVIDER ORGANIZAT ION (PPO) BASIC FAMIL Y Jun 24, 2009 112 [id number] [phone] ABHILASH GARAY PATIENT [place] FEP ([id number]) PRESCRIPT ION FEPRX Jun 24, 2009 [id number] [phone] ABHILASH GARAY PATIENT [place] FEP BCBS PRESCRIPT ION CAREM ARK FEPRX PLAN Nov 21, 2021 [id number] ABHILASH GARAY PATIENT [place] FEPRX PLAN PRESCRIPT ION CAREM ARK FEPRX Nov 21, 2021 [id number] ABHILASH GARAY PATIENT [place]-F EP BCBS PRESCRIPT ION FEP CAREM ARK Nov 21, 2021 [id number] ABHILASH GARAY PATIENT [place]-F EP BCBS PRESCRIPT ION FEP Jun 23, 2010 [id number] ABHILASH GARAY PATIENT MEDICARE (WN) MEDICARE () PART A Feb 22, 2020 PART A [id number] ABHILASH GARAY PATIENT MEDICARE ([facility]) MEDICARE () PART A Feb 22, 2020 PART A [id number] [id number] ABHILASH GARAY PATIENT MEDICARE (WNR) MEDICARE (M) PART A Feb 22, 2020 PART A [id number] [id number] [phone] ABHILASH GARAY PATIENT MEDICARE ([place]NR) MEDICARE (M) PART A Feb 22, 2020 PART A [id number] ABHILASH GARAY PATIENT MEDICARE (WNR) MEDICARE (M) PART A Feb 22, 2020 PART A [id number] ABHILASH GARAY PATIENT Selected Encounter This section includes the information on record at [place] for the Encounter. Date/Time Encounter Type Encounter Description Reason Pro vider Source Dec 29, 2023 12:00 AM Outpatient Encounter EVENT (HISTORICAL) IHE Encounter Template Text not used by [place] Plan of Treatment: Future Appointments (+ 6 months) and Future Tests (+/- 45 days) The Plan of Treatment section includes future care activities for the patient from all [place] treatmentfacil[facility]. This section includes future appointments and [...] 31, 2023 08:15 PM AMBULATORY - MEDICINE [facility] [place] [facility] Jan 01, 2024 01:00 PM AMBULATORY - MEDICINE [facility] [place] [place] [facility] Jan 02, 2024 09:30 AM AMBULATORY - REHAB MEDICIN [facility] Jan 07, 2024 03:00 PM AMBULATORY - REHAB MEDICIN [facility] Jan 08, 2024 01:00 PM AMBULATORY - MEDICINE [facility] [place] [facility] Jan 09, 2024 11:00 AM AMBULATORY - MEDICINE [facility] [place] [facility] Jan 13, 2024 11:00 AM AMBULATORY - MEDICINE [facility] [facility] Jan 14, 2024 03:00 [facility], [facility] 03:00 PM [facility] Jan 28, 2024 11:00 AM AMBULATORY [facility]ICINE [facility] [place] [facility] Jan 30, 2024 08:00 AM [facility] Feb 02, 2024 02:00 PM AMBULATORY - MEDICINE [facility] [place] [facility] Feb 04, 2024 11:00 AM AMBULATORY - MEDICINE [facility] [place] [facility] Feb 09, 2024 11:30 AM AMBULATORY - MEDICINE [facility] [place] [facility] Feb 09, 2024 02:00 PM AMBULATORY - MEDICINE [facility] [place] [facility] Feb 19, 2024 01:00 PM AMBULATORY - MEDICINE [facility] [place] [facility] Feb 25, 2024 11:00 AM AMBULATORY - NONE [facility] [place] [facility] Mar 04, 2024 01:00 PM AMBULATORY - MEDICINE [facility] [place] [facility] Mar 09, 2024 01:00 PM AMBULATORY - MEDICINE [facility] [place] [facility] Mar 11, 2024 11:00 AM AMBULATORY - MEDICINE [facility] [place] [facility] Social History: Smoking Status (Most current) [...] 09:12 AM [facility] Tobacco Use History This section includes a history of the smoking, or tobacco-related health factors, that were collected on or before the date of the Encounter. The data comes from the [place] facility where the Encounter took place. Date/Time Smoking Status/Tobacco Use Comment Gilberto boston Aug 09, 2021 09:20 AM VA-TOBACCO NEVER USED [place] [facility] Encounter Notes: All associated encounter notes This section contains the clinical notes associated to the Encounter. Date/Time Encounter Note(s) Provider Source Dec 29, 2023 12:00 AM NONVA CONSULT: LOCAL TITLE: COMMUNITY CARE-CONSULT RESULT NOTE STANDARD TITLE: NONVA CONSULT DATE OF NOTE: DEC 29, 2023 ENTRY DATE: FEB 09, 2024@17:31:03 AUTHOR: JORDAN TANNER MA EXP COSIGNER: URGENCY: STATUS: COMPLETED VistA Imaging - Scanned Document SCANNED DOCUMENT SIGNATURE NOT REQUIRED Electronically Filed: 02/09/2024 by: JORDAN TANNER CHIEF ACCOUNTANT JORDAN TANNER [place] [facility]
--- OUTSIDE RECORDS SUMMARY | 2024-06-29 19:03 | XMS_ITS | Encounter Summary ---
Author Name [facility] [place] [facility] [place] Address [address] [place] [address] Care Team Providers Care Start Up Specialist Name Role Phone ABDIRAHMAN LAKE Primary [...] BASIC FAMIL Y Jun 24, 2009 112 [id number] [phone] ABHILASH GARAY PATIENT ANTHEM BCBS [place] FEP PREFERRED PROVIDER ORGANIZAT ION (PPO) FEP BASIC FAM Jun 24, 2009 112 [id number] [phone] ABHILASH GARAY PATIENT ANTHEM BCBS [place] FEP PREFERRED PROVIDER ORGANIZAT ION (PPO) FEP BASIC FAM Jun 24, 2009 112 [id number] [phone] ABHILASH GARAY PATIENT ANTHEM [place] FEP PREFERRED PROVIDER ORGANIZAT ION (PPO) FEP BASIC FAM Jun 24, 2009 112 [id number] [phone] ABHILASH GARAY PATIENT BCBS [place] FEP PREFERRED PROVIDER ORGANIZAT ION (PPO) FEP BASIC FAM Jun 24, 2009 112 [id number] [phone] ABHILASH GARAY PATIENT BCBS [place] FEP PREFERRED PROVIDER ORGANIZAT ION (PPO) BASIC FAMIL Y Jun 24, 2009 112 [id number] [phone] ABHILASH GARAY PATIENT [place] PREFERRED PROVIDER ORGANIZAT ION (PPO) BASIC FAMIL Y Jun 24, 2009 112 [id number] ABHILASH GARAY PATIENT [place] FEP PREFERRED PROVIDER ORGANIZAT ION (PPO) BASIC FAMIL Y Jun 24, 2009 112 [id number] ABHILASH GARAY PATIENT [place] F[place] DENTAL DENTAL INSURANCE BASIC Jul 12, 2009 DENTAL [id number] ABHILASH GARAY PATIENT [place] FEP PREFERRED PROVIDER ORGANIZAT ION (PPO) BASIC FAMIL Y Jun 24, 2009 112 [id number] [phone] ABHILASH GARAY PATIENT [employer] FEP ([id number]) PRESCRIPT ION FEPRX Jun 24, 2009 [id number] [phone] ABHILASH GARAY PATIENT [employer] FEP BCBS PRESCRIPT ION CAREM ARK FEPRX PLAN Nov 21, 2021 [id number] ABHILASH GARAY PATIENT [employer] FEPRX PLAN PRESCRIPT ION CAREM ARK FEPRX Nov 21, 2021 [id number] [phone] ABHILASH GARAY PATIENT [employer]-F EP BCBS PRESCRIPT ION FEP CAREM ARK Nov 21, 2021 [id number] ABHILASH GARAY PATIENT [employer]-F EP BCBS PRESCRIPT ION FEP Jun 23, 2010 [id number] RUBI GARAYNETH PATIENT MEDICARE (WN) MEDICARE (M) PART A Feb 22, 2020 PART A [id number] ABHILASH GARAY PATIENT MEDICARE (WN) MEDICARE (M) PART A Feb 22, 2020 PART A [id number] ABHILASH GARAY PATIENT MEDICARE (WNR) MEDICARE (M) PART A Feb 22, 2020 PART A [id number] [phone] ABHILASH GARAY PATIENT MEDICARE (WNR) MEDICARE (M) PART A Feb 22, 2020 PART A [id number] ABHILASH GARAY PATIENT MEDICARE (WNR) MEDICARE (M) PART A Feb 22, 2020 PART A [id number] ABHILASH GARAY PATIENT Selected Encounter This section includes the information on record at [place] for the Encounter. Date/Time Encounter Type Encounter Description Reason Pro vider Source IHE Encounter Template Text not used by [place]
--- OUTSIDE RECORDS SUMMARY | 2024-06-29 19:03 | XMS_ITS | Encounter Summary ---
Author Name [facility] [place] [facility] [place] [facility] [place] Address [address] [place] [address] Care Team Providers Care Issue Clerk Name Role Phone ABDIRAHMAN LAKE Primary [...] BASIC FAMIL Y Jun 24, 2009 112 [id number] [phone] ABHILASH GARAY PATIENT ANTHEM BCBS [place] F[place] PREFERRED PROVIDER ORGANIZAT ION (PPO) FEP BASIC FAM Jun 24, 2009 112 [id number] [phone] ABHILASH GARAY PATIENT ANTHEM [place] FEP PREFERRED PROVIDER ORGANIZAT ION (PPO) FEP BASIC FAM Jun 24, 2009 112 [id number] [phone] ABHILASH GARAY PATIENT ANTHEM [place] PREFERRED PROVIDER ORGANIZAT ION (PPO) FEP BASIC FAM Jun 24, 2009 112 [id number] [phone] ABHILASH GARAY PATIENT [place] F[place] PREFERRED PROVIDER ORGANIZAT ION (PPO) FEP BASIC FAM Jun 24, 2009 112 [id number] [phone] RUBI GARAYNETH PATIENT BCBS [place] FEP PREFERRED PROVIDER ORGANIZAT ION (PPO) BASIC FAMIL Y Jun 24, 2009 112 [id number] 62 RUBI GARAYNETH PATIENT [place] FEP PREFERRED PROVIDER ORGANIZAT ION (PPO) BASIC FAMIL Y Jun 24, 2009 [id number] RUBI GARAYNETH PATIENT [place] FEP PREFERRED PROVIDER ORGANIZAT ION (PPO) BASIC FAMIL Y Jun 24, 2009 [id number] RUBI GARAYNETH PATIENT [place] F[place] DENTAL DENTAL INSURANCE BASIC Jul 12, 2009 DENTAL [id number] DEJAHDANIKARUBI ACEVESNETH PATIENT [place] FEP PREFERRED PROVIDER ORGANIZAT ION (PPO) BASIC FAMIL Y Jun 24, 2009 112 [id number] [phone] ABHILASH GARAY PATIENT [employer] FEP ([id number]) PRESCRIPT ION FEPRX Jun 24, 2009 [id number] [phone] ABHILASH GARAY PATIENT [employer] FEP BCBS PRESCRIPT ION CAREM ARK FEPRX PLAN Nov 21, 2021 [id number] ABHILASH GARAY PATIENT [employer] FEPRX PLAN PRESCRIPT ION CAREM ARK FEPRX Nov 21, 2021 [id number] [phone] ABHILASH GARAY PATIENT [employer]-F EP BCBS PRESCRIPT ION FEP CAREM ARK Nov 21, 2021 [id number] ABHILASH GARAY PATIENT [employer]-F EP BCBS PRESCRIPT ION FEP Jun 23, 2010 [id number] RUBI GARAYNETH PATIENT MEDICARE ([facility]) MEDICARE () PART A Feb 22, 2020 PART A [id number] ABHILASH GARAY PATIENT MEDICARE (WNR) MEDICARE (M) PART A Feb 22, 2020 PART A [id number] ABHILASH GARAY PATIENT MEDICARE (WNR) MEDICARE (M) PART A Feb 22, 2020 PART A [id number] ABHILASH GARAY PATIENT MEDICARE (WNR) MEDICARE (M) PART A Feb 22, 2020 PART A [id number] ABHILASH GARAY PATIENT MEDICARE (WNR) MEDICARE (M) PART A Feb 22, 2020 PART A [id number] ABHILASH GARAY PATIENT Selected Encounter This section includes the information on record at [place] for the Encounter. Date/Time Encounter Type Encounter Description Reason Provider Source Feb 27, 2024 11:00 AM UNLISTED PHYSCL MED/REHAB PX HEALTH/[facility] ICD-10-CM Z72.3 Lack of physical exercise MADISON COLLINS [facility] Encounter Template Text not used by [place] Assessments - Encounter Diagnoses This section includes the primary and secondary diagnoses documented for the Encounter. Date/Time Primary/Secondary Diagnosis Diagnosis Name Provider Source Feb 27, 2024 01:10 PM PRIMARY Lack of physical exercise MADISON COLLINS [facility] Plan of Treatment: Future Appointments (+ 6 [...] Date/Time Appointment Type Appointme nt Facility Name Mar 04, 2024 01:00 PM AMBULATORY [place]ICINE [place] [facility] Mar 09, 2024 01:00 PM AM[place]ULATORY [place]ICINE [place] [facility] Mar 11, 2024 11:00 AM AM[place]ULATORY [place]ICINE [place] [facility] Mar 15, 2024 12:15 PM AMBULATORY [place] MEDICINE [place] [facility] Mar 25, 2024 01:00 PM AMBULATORY [place] MEDICINE [place] [facility] Apr 06, 2024 10:30 AM AMBULATORY - MEDICINE [facility] Apr 07, 2024 03:30 PM AMBULATORY - NONE [facility] Apr 08, 2024 01:00 PM AMBULATORY - MEDICINE [place] [facility] Apr 12, 2024 11:00 AM AMBULATORY [facility] MEDICINE [place] [facility] Apr 15, 2024 10:00 AM AMBULATORY [facility] MEDICINE [place] [facility] Apr 19, 2024 11:00 AM AMBULATORY [facility] MEDICINE [place] [facility] Apr 22, 2024 09:00 AM AMBULATORY [facility] MEDICINE [place] [facility] May 03, 2024 01:00 PM AMBULATORY [place] [facility]ICINE [place] [facility] May 17, 2024 01:00 PM AMBULATORY - RE[place]AB [place]ICIN [place] May 28, 2024 07:30 AM AMBULATORY [place] MEDICINE [place] [facility] Jun 03, 2024 01:00 PM AMBULATORY [facility] MEDICINE [place] [facility] Jun 08, 2024 03:00 PM AMBULATORY - REHAB MEDICIN [facility] Jun 11, 2024 08:00 AM AMBULATORY - MEDICINE [facility] Jun 11, 2024 02:00 PM AMBULATORY - REHAB MEDICIN [facility] Jun 14, 2024 10:30 AM AMBULATORY [place] MEDICINE [place] [facility] Active, Pending, and Scheduled Orders This section includes a listing of several types of active, pending, and scheduled orders, including clinic medications orders, diagnostic test orders, procedure orders and consult orders; where the start date of the order is 45 days before the date of the Encounter or 45 days after the date of theEncounter. The data comes from all [place] treatment facilities. Test Date/Time Test Type Test Details Facility Name Apr 08, 2024 12:00 AM Laboratory - Chemistry Order URI NALYSIS URINE SP [place] Social History: Smoking Status (Most current) and [...] 09, 2021 09:20 AM VA-TOBACCO NEVER USED [facility] Encounter Notes: All associated encounter notes This section contains the clinical notes associated to the Encounter. Date/Time Encounter Note(s) Provider Source Feb 27, 2024 01:10 PM INTEGRATIVE HEALTH NOTE: LOCAL TITLE: WHOLE HEALTH PERSONAL HEALTH INVENTORY STANDARD TITLE: INTEGRATIVE HEALTH NOTE DATE OF NOTE: FEB 27, 2024@13:10 ENTRY DATE: FEB 27, 2024@13:10:44 AUTHOR: MADISON COLLINS: URGENCY: STATUS: COMPLETED Q29. What really matters most to you in your life? Being healthy Q30. What activities would you like (or need) to do, that you are currently having difficulties with? Yoga walking Q31. What are you trying to be healthy for? Myself Q32. Please rate yourself on a scale of 1 (low) to 5 (high) where you are now and where you would like to be: Q33. Working on the body: How physically active are you? Where are you now? 3 - Moderate Where would you like to be? 4 Q34. Recharge: How well do you sleep, relax and recover? Where are you now? 4 Where would you like to be? 5- High Q35. Food and Drink: Do you consider your eating habits healthy? Where are you now? 3 - Moderate Where would you like to be? 4 Q36. Power of the mind: How well do you maintain a positive outlook, healthy relationships and caring for your mental health? Where are you now? 5 - High Where would you like to be? 5 - High Q37. What are your Gerofit exercise goal(s) in the next 3 months? Make the goal specific, measurable, achievable, relevant, time-based. Improve walking speed by .2 m/s Q51. Whole Health Coaching is designed to assist Veterans who may be struggling with motivation to make changes: such as, exercise, diet, mindfulness, personal development etc. Coaching will include brief individual and/or group meetings to help support the with reaching their desired goals. Are you interested in receiving Whole Health Coaching outside of the GeroFit program? Yes /yunior/ MADISON COLLINS PT, DPT PHYSICAL THERAPIST Signed: 02/27/2024 13:19 MADISON COLLINS [facility] Feb 27, 2024 01:08 PM PHYSICAL MEDICINE REHAB NOTE: LOCAL TITLE: GEROFI BASELINE PHYSICAL FUNCTION TEST NOTE STANDARD TITLE: PHYSICAL MEDICINE REHAB NOTE DATE OF NOTE: FEB 27, 2024@13:08 ENTRY DATE: FEB 27, 2024@13:08:54 AUTHOR: MADISON COLLINS COSIGNER: URGENCY: STATUS: COMPLETED GEROFIT-BASELINE PHYSICAL FUNCTIONAL TESTING We like to keep the patient's primary care provider involved with his participation in the Gerofit Exercise Program. Mr. Garay completed his baseline physical function test for [facility]. These tasks measure strength, endurance, mobility, and balance by using 5 short tests that resemble different components of physical activity done throughout the day. Mr. Garay ranked as follows: TEST WHAT IT MEASURES RANKING PERCENTILE Arm curls Upper body strength At risk 5% Chair stands Leg strength At risk <5% 8 ft up & go Balance,agility,mobility At risk <5% 6-minute walk Endurance At risk <5% His gait speed was .56 meters/second,and ranked as follows: At risk The Gerofit Team will work with this patient to improve his current functional status, developing a personally tailored exercise prescription that addresses his underlying functional status and integrates evidence-based components of physical activity programming to achieve optimal fitness and functioning. He will be encouraged to attend 2-3 times per week, as schedule permits. /yunior/ MADISON COLLINS PT, DPT PHYSICAL THERAPIST Signed: 02/27/2024 13:10 MADISON COLLINS [facility]
--- OUTSIDE RECORDS SUMMARY | 2024-06-29 19:03 | XMS_ITS | Encounter Summary ---
Author Name [facility] [place] Address [address] [place] [address] Care Team Providers Care Chief Petroleum Engineer Name Role Phone ABDIRAHMAN LAKE Primary [...] BASIC FAMIL Y Jun 24, 2009 [id number] [phone] ABHILASH GARAY PATIENT ANTHEM BCBS [place] FEP PREFERRED PROVIDER ORGANIZAT ION (PPO) FEP BASIC FAM Jun 24, 2009 [id number] [phone] ABHILASH GARAY PATIENT ANTHEM BCBS [place] FEP PREFERRED PROVIDER ORGANIZAT ION (PPO) FEP BASIC FAM Jun 24, 2009 112 [id number] [phone] ABHILASH GARAY PATIENT ANTHEM [place] PREFERRED PROVIDER ORGANIZAT ION (PPO) FEP BASIC FAM Jun 24, 2009 112 [id number] [phone] ABHILASH GARAY PATIENT [place] PREFERRED PROVIDER ORGANIZAT ION (PPO) FEP BASIC FAM Jun 24, 2009 [id number] [phone] RUBI GARAYNETH PATIENT [place] F[place] PREFERRED PROVIDER ORGANIZAT ION (PPO) BASIC FAMIL Y Jun 24, 2009 [id number] ABHILASH GARAY PATIENT [place] F[place] PREFERRED PROVIDER ORGANIZAT ION (PPO) BASIC FAMIL Y Jun 24, 2009 [id number] ABHILASH GARAY PATIENT [place] F[place] PREFERRED PROVIDER ORGANIZAT ION (PPO) BASIC FAMIL Y Jun 24, 2009 112 [id number] [phone] RUBI GARAYNETH PATIENT [place] F[place] DENTAL DENTAL INSURANCE BASIC Jul 12, 2009 DENTAL [id number] [phone] RUBI GARAYNETH PATIENT [place] PREFERRED PROVIDER ORGANIZAT ION (PPO) BASIC FAMIL Y Jun 24, 2009 [id number] ABHILASH GARAY PATIENT [employer] FEP ([id number]) PRESCRIPT ION FEPRX Jun 24, 2009 [id number] [phone] ABHILASH GARAY PATIENT [employer] FEP BCBS PRESCRIPT ION CAREM ARK FEPRX PLAN Nov 21, 2021 [id number] ABHILASH GARAY PATIENT [employer] FEPRX PLAN PRESCRIPT ION CAREM ARK FEPRX Nov 21, 2021 [id number] [phone] ABHILASH GARAY PATIENT [employer]-F EP BCBS PRESCRIPT ION FEP CAREM ARK Nov 21, 2021 [id number] ABHILASH GARAY PATIENT [employer]-F EP BCBS PRESCRIPT ION FEP Jun 23, 2010 [id number] DEJAHDANIKARUBI ACEVESNETH PATIENT MEDICARE ([facility]) MEDICARE () PART A Feb 22, 2020 PART A [id number] [phone] ABHILASH GARAY PATIENT MEDICARE (WNR) MEDICARE (M) PART A Feb 22, 2020 PART A [id number] [phone] ABHILASH GARAY PATIENT MEDICARE (WNR) MEDICARE (M) PART A Feb 22, 2020 PART A [id number] [phone] ABHILASH GARAY PATIENT MEDICARE (WNR) MEDICARE (M) PART A Feb 22, 2020 PART A [id number] ABHILASH GARAY PATIENT MEDICARE (WNR) MEDICARE (M) PART A Feb 22, 2020 PART A [id number] ABHILASH GARAY PATIENT Selected Encounter This section includes the information on record at [place] for the Encounter. Date/Time Encounter Type Encounter Description Reason Provider Source Mar 01, 2024 12:34 PM COLLJ & INTERPJ DATA EA 30 D SLEEP MEDICINE ICD-10-CM G47.33 Obstructive sleep apnea (adult) (pediatric) [facility] ROS[facility] CLARK [facility] Encounter Template Text not used by [place] Assessments - Encounter Diagnoses This section includes the primary and secondary diagnoses documented for the Encounter. Date/Time Primary/Secondary Diagnosis Diagnosis Name Provider Source Mar 01, 2024 12:35 PM PRIMARY Obstructive sleep apnea (adult) (pediatric) [facility] [place] [facility] Plan of Treatment: Future Appointments (+ [...] 04, 2024 01:00 PM AMBULATORY - MEDICINE [place] [facility] Mar 09, 2024 01:00 PM AMBULATORY - MEDICINE [place] [facility] Mar 11, 2024 11:00 AM AMBULATORY - MEDICINE [place] [facility] Mar 15, 2024 12:15 PM AMBULATORY - MEDICINE [place] [facility] Mar 25, 2024 01:00 PM AMBULATORY - MEDICINE [place] [facility] Apr 06, 2024 10:30 AM AMBULATORY - MEDICINE [facility] Apr 07, 2024 03:30 PM AMBULATORY - NONE [facility] [facility] Apr 08, 2024 01:00 PM AMBULATORY - MEDICINE [place] [facility] Apr 12, 2024 11:00 AM AMBULATORY - MEDICINE [facility] Apr 15, 2024 10:00 AM AMBULATORY - MEDICINE [place] [facility] Apr 19, 2024 11:00 AM AMBULATORY - MEDICINE [facility] Apr 22, 2024 09:00 AM AMBULATORY - MEDICINE [facility] May 03, 2024 01:00 PM AMBULATORY - MEDICINE [place] [facility] May 17, 2024 01:00 PM AMBULATORY - REHAB MEDICIN [facility] [place] May 28, 2024 07:30 AM AMBULATORY - MEDICINE [place] [facility] Jun 03, 2024 01:00 PM AMBULATORY - MEDICINE [place] [facility] Jun 08, 2024 03:00 PM AMBULATORY - REHAB MEDICIN [facility] Jun 11, 2024 08:00 AM AMBULATORY - MEDICINE [facility] Jun 11, 2024 02:00 PM AMBULATORY - REHAB MEDICIN [facility] Jun 14, 2024 10:30 AM AMBULATORY - MEDICINE [place] [facility] Active, Pending, and Scheduled Orders This section includes a listing of several types of active, pending, and scheduled orders, including clinic medications orders, diagnostic test orders, procedure orders and consult orders; where the start date of the order is 45 days before the date of the Encounter or 45 days after the date of theEncounter. The data comes from all [place] treatment facilities. Test Date/Time Test Type Test Details Facility Name Apr 08, 2024 12:00 AM Laboratory - Chemistry Order URINALYSIS URINE SP [place] Apr 15, 2024 03:06 PM Consult Order COMMUNITY CARE-NEUROLOGY Cons Wind Tunnel Engineer's Choice [facility] Lab Results: +/- 30 days of the encounter This section includes the Chemistry and Hematology Lab Results on record with [place] for the patient. Radiology Reports and Pathology Reports are provided separately, in subsequent sections. Lab Results This section contains the Chemistry/Hematology Results that were resulted 30 days before or 30 daysafter the date of the Encounter. Date/Time Source Result Type Result - Unit Interpretation Reference Range Comment Mar 31, 2024 09:16 AM [place] HEMOGLOBIN A1C PANEL Specimen Type: BLOOD Comment: Values obtained from A1C measurements can vary. For atypical A1C assays, a reported value of 7.0 could actually be between 6.72 and 7.28 if measured by a reference method. A reported value of 9.0 could actually be between 8.73 and 9.27. Ref: http://www.ngs p.org/CAPdata. asp Ordering Provider: GREGG HARMON Report Released Date/Time: Apr 08, 2023 02:27 PM Reporting Lab: [address] [address] Performing Lab: [address] [address] HEMOGLOBIN A1C 5.2 4.0-5.6 Mar 31, 2024 09:16 AM [place] LIPID PANEL FASTING Specimen Type: SERUM No comment entered. Ordering Provider: GREGG HARMON Report Released Date/Time: Apr 08, 2023 02:27 PM Reporting Lab: [address] [address] Performing Lab: [address] [address] CHOLESTEROL 164 mg/dL TRIGLYCERIDE 102 mg/dL 0-150 LDL calculated 101 mg/dL 0-129 CHOL/HDL 3.8 HDL CHOLESTEROL 43 mg/dL 40-60 Mar 31, 2024 09:16 AM [place] TSH Specimen Type: SERUM No comment entered. Ordering Provider: GERGG HARMON Report Released Date/Time: Apr 08, 2023 02:27 PM Reporting Lab: [address] [address] Performing Lab: [address] [address] TSH 2.67 u[IU]/mL 0.35-5.00 Mar 31, 2024 09:16 AM [place] BASIC METABOLIC PANEL (fasting) Specime n Type: SERUM No comment entered. Ordering Provider: GREGG HARMON Report Released Date/Time: Apr 08, 2023 02:27 PM Reporting Lab: [address] [address] Performing Lab: [address] [address] UREA NITROGEN 20 mg/dL 7-25 GLUCOSE 100 mg/dL 65-100 SODIUM 140 mmol/L 135-145 POTASSIUM 4.2 mmol/L 3.5-5.0 CHLORIDE 109 mmol/L 100-110 CO2 23 meq/L 20-30 CREATININE, Serum 0.96 mg/dL 0.50-1.40 eGFR(CKD-EPI 2020) 86 mL/min >60 Mar 31, 2024 09:16 AM [place] LIVER FUNCTION Specimen Type: SERUM No comment entered. Ordering Provider: GREGG HARMON Report Released Date/Time: Apr 08, 2023 02:27 PM Reporting Lab: [address] [address] Performing Lab: [address] [address] PROTEIN,TOTAL 6.0 g/dL 6.0-8.3 ALBUMIN 3.5 g/dL 3.5-5.0 ALKALINE PHOSPHATASE 70 U/L 40-150 AST 14 U/L 5-34 ALT 20 U/L BILIRUBIN, TOTAL 1.0 mg/dL 0.2-1.2 Mar 31, 2024 09:16 AM [place] CBC AND DIFF (AUTO) Specimen Type: BLOOD No comment entered. Ordering Provider: GREGG HARMON Report Released Date/Time: Apr 08, 2023 02:27 PM Reporting Lab: [address] [address] Performing Lab: [address] [address] WBC 4.01 10*3/uL L 4.50-11.00 RBC 4.67 10*6/uL 4.23-5.66 HGB 14.1 g/dL 12.8-17 HCT 42.9 39.2-50.4 MCV 91.9 fL 82-99 MCHC 32.9 g/dL 30.8-35.1 PLT 185 10*3/uL 140-360 RDW-CV 13.5 12.0-16.0 MONO, ABS 0.34 10*3/uL 0.30-1.10 MCH 30.2 pg 26.2-32.6 NEUT % 67.6 43.7-75.8 LYMPH % 18.5 14.0-42.3 MONO % 8.5 5.1-13.7 EOS % 4.2 0.4-6.8 BASO % 1.0 0.1-2.0 NEUT, ABS 2.71 10*3/uL 2.20-7.60 LYMPH, ABS 0.74 10*3/uL L 1.00-3.20 EOS, ABS 0.17 10*3/uL 0.03-0.44 BASO, ABS 0.04 10*3/uL 0.01-0.13 IMMATURE GRAN % 0.2 0.0-0.7 IMMATURE GRAN, ABS 0.01 10*3/uL 0.00-0.06 NRBC % 0.0 0.0-0.0 NRBC, ABS 0.00 10*3/uL 0.00-0.00 Social History: Smoking Status (Most current) and [...] 08, 2023 09:12 AM VA-TOBACCO NEVER USED [facility] Tobacco Use History This section includes a history of the smoking, or tobacco-related health factors, that were collected on or before the date of the Encounter. The data comes from the [place] facility where the Encounter took place. Date/Time Smoking Status/Tobacco Use Comment F acility Aug 09, 2021 09:20 AM VA-TOBACCO NEVER USED [facility] Encounter Notes: All associated encounter notes This section contains the clinical notes associated to the Encounter. Date/Time Encounter Note(s) Provider Source Mar 01, 2024 12:34 PM RESPIRATORY THERAP Y NOTE: LOCAL TITLE: RESPIRATORY THERAPY NOTE(BLANK) STANDARD TITLE: RESPIRATORY THERAPY NOTE DATE OF NOTE: MAR 01, 2024@12:34 ENTRY DATE: MAR 01, 2024@12:34:48 AUTHOR: ALMA ROSA CLARK EXP COSIGNER: URGENCY: STATUS: COMPLETED diagnosed with sleep apnea had initial Airview data download after set up appointment. AirView Compliance Report Usage 02/02/2024 - 02/29/2024 Usage days 28/28 days (100%) >= 4 hours 28 days (100%) < 4 hours 0 days (0%) Usage hours 268 hours 26 minutes Average usage (total days) 9 hours 35 minutes Average usage (days used) 9 hours 35 minutes Median usage (days used) 9 hours 37 minutes Total used hours (value since last reset - 02/29/2024) 268 hours AirSense 11 AutoSet Serial number [id number] Mode AutoSet Min Pressure 5 cmH2O Max Pressure 20 cmH2O EPR Fulltime EPR level 3 Response Soft Therapy Pressure - cmH2O Median: 8.5 95th percentile: 11.5 Maximum: 12.9 Leaks - L/min Median: 0.4 95th percentile: 2.7 Maximum: 13.7 Events per hour AI: 1.5 HI: 1.4 AHI: 2.9 Apnea Index Central: 0.6 Obstructive: 0.8 Unknown: 0.0 RERA Index 0.1 Adal-Cali respiration (average duration per night) 1 minutes (0%) /yunior/ [facility] ROS[facility] CLARK RESPIRATORY THERAPIST Signed: 03/01/2024 12:36 [facility] [place] [facility]
--- OUTSIDE RECORDS SUMMARY | 2024-06-29 19:03 | XMS_ITS ---
Author Name [facility] [place] [facility] [place] Address [address] [place] [address] Care Team Providers Care Shower Enclosure Installer Name Role Phone ABDIRAHMAN LAKE Primary Care [...] BASIC FAMIL Y Jun 24, 2009 [id number] [phone] ABHILASH GARAY PATIENT [place]THE[place] F[place] PREFERRED PROVIDER ORGANIZAT ION (PPO) FEP BASIC FAM Jun 24, 2009 112 [id number] [phone] ABHILASH GARAY PATIENT ANTHEM [place] F[place] PREFERRED PROVIDER ORGANIZAT ION (PPO) FEP BASIC FAM Jun 24, 2009 112 [id number] [phone] ABHILASH GARAY PATIENT [place] F[place] PREFERRED PROVIDER ORGANIZAT ION (PPO) FEP BASIC FAM Jun 24, 2009 112 [id number] [phone] ABHILASH GARAY PATIENT [place] F[place] PREFERRED PROVIDER ORGANIZAT ION (PPO) FEP BASIC FAM Jun 24, 2009 112 [id number] [phone] ABHILASH GARAY PATIENT [place] FEP PREFERRED PROVIDER ORGANIZAT ION (PPO) BASIC FAMIL Y Jun 24, 2009 112 [id number] ABHILASH GARAY PATIENT [place] PREFERRED PROVIDER ORGANIZAT ION (PPO) BASIC FAMIL Y Jun 24, 2009 112 [id number] [phone] ABHILASH GARAY PATIENT [place] PREFERRED PROVIDER ORGANIZAT ION (PPO) BASIC FAMIL Y Jun 24, 2009 112 [id number] [phone] ABHILASH GARAY PATIENT [place] FEP DENTAL DENTAL INSURANCE BASIC Jul 12, 2009 DENTAL [id number] ABHILASH GARAY PATIENT [place] F[place] PREFERRED PROVIDER ORGANIZAT ION (PPO) BASIC FAMIL Y Jun 24, 2009 112 [id number] ABHILASH GARAY PATIENT [place] FEP ([id number]) PRESCRIPT ION FEPRX Jun 24, 2009 [id number] [phone] ABHILASH GARAY PATIENT [place] FEP BCBS PRESCRIPT ION CAREM [place] FEPRX PLAN Nov 21, 2021 [id number] ABHILASH GARAY PATIENT [place] FEPRX PLAN PRESCRIPT ION CAREM AR[place] FEPRX Nov 21, 2021 [id number] ABHILASH GARAY PATIENT [place] BCBS PRESCRIPT ION FEP CAREM ARK Nov 21, 2021 [id number] ABHILASH GARAY PATIENT [place] BCBS PRESCRIPT ION FEP Jun 23, 2010 [id number] RUBI GARAYNETH PATIENT MEDICARE (WN) MEDICARE () PART A Feb 22, 2020 PART A [id number] ABHILASH GARAY PATIENT MEDICARE (WN) MEDICARE () PART A Feb 22, 2020 PART A [id number] ABHILASH GARAY PATIENT MEDICARE (WNR) MEDICARE (M) PART A Feb 22, 2020 PART A [id number] [phone] ABHILASH GARAY PATIENT MEDICARE (WNR) MEDICARE (M) PART A Feb 22, 2020 PART A [id number] ABHILASH GARAY PATIENT MEDICARE (WNR) MEDICARE (M) PART A Feb 22, 2020 PART A [id number] ABHILASH GARAY PATIENT Selected Encounter This section includes the information on record at [place] for the Encounter. Date/Time Encounter Type Encounter Description Reason Provider Source Feb 16, 2024 11:00 AM EXERCISE CLASS HEALTH/WELLBEING SRVS ICD-10-CM Y93.42 Activity, PAT Yoder [place] IHE Encounter Template Text not used by [place] Assessments - Encounter Diagnoses This section includes the primary and secondary diagnoses documented for the Encounter. Date/Time Primary/Secondary Diagnosis Diagnosis Name Provider Source Mar 03, 2024 02:44 PM PRIMARY Activity, PEDRO Yoder [facility] [place] [facility] Plan of Treatment: [...] - MEDICINE [place] C [facility] [place] [facility] Feb 25, 2024 11:00 AM AMBULATORY - NONE [facility] [place] [facility] Mar 04, 2024 01:00 PM AMBULATORY - MEDICINE [place] [facility] [place] [facility] Mar 09, 2024 01:00 PM AMBULATORY - MEDICINE [place] [facility] [place] [facility] Mar 11, 2024 11:00 AM AMBULATORY - MEDICINE [place] [facility] [place] [facility] Mar 15, 2024 12:15 PM AMBULATORY - MEDICINE [facility] [place] [facility] Mar 25, 2024 01:00 PM AMBULATORY - MEDICINE [facility] [place] [facility] Apr 06, 2024 10:30 AM [facility] Apr 07, 2024 03:30 PM AMBULATORY - NONE [facility] [place] [facility] Apr 08, 2024 01:00 PM AMBULATORY - MEDICINE [facility] [place] [facility] Apr 12, 2024 11:00 AM AMBULATORY - MEDICINE [facility] [place] [facility] Apr 15, 2024 10:00 AM AMBULATORY - MEDICINE [facility] [place] [facility] Apr 19, 2024 11:00 AM AMBULATORY - MEDICINE [facility] [place] [facility] Apr 22, 2024 09:00 AM AMBULATORY - MEDICINE [place] [facility] [place] [facility] May 03, 2024 01:00 PM AMBULATORY - MEDICINE [place] [facility] [place] [facility] May 17, 2024 01:00 PM AMBULATORY - REHAB [facility] May 28, 2024 07:30 AM AMBULATORY - MEDICINE [place] [facility] [place] [facility] Jun 03, 2024 01:00 PM AMBULATORY - MEDICINE [place] [facility] [place] [facility] Jun 08, 2024 03:00 PM AMBULATORY - RE[facility]AB [facility] Jun 11, 2024 08:00 AM AMBULATORY - MEDICINE [facility] Social History: Smoking Status (Most [...] 08, 2023 09:12 AM VA-TOBACCO NEVER USED [facility] Tobacco Use History This section includes a history of the smoking, or tobacco-related health factors, that were collected on or before the date of the Encounter. The data comes from the [place] facility where the Encounter took place. Date/Time Smoking Status/Tobacco Use Comment F acility Aug 09, 2021 09:20 AM PA-TOBACCO NEVER USED [facility] Encounter Notes: All associated encounter notes This section contains the clinical notes associated to the Encounter. Date/Time Encounter Note(s) Provider Source Feb 16, 2024 11:00 AM RECREATIONAL THERA PY NOTE: LOCAL TITLE: YOGA WELLBEING STANDARD TITLE: RECREATIONAL THERAPY NOTE DATE OF NOTE: FEB 16, 2024@11:00 ENTRY DATE: FEB 17, 2024@14:38:07 AUTHOR: MARY KATE MOORE COSIGNER: URGENCY: STATUS: [...] tree, triangle pose, wide leg forward bend, [place] 2, Extended Side Angle Pose, Intense Side Stretch, [place] 1, plank, cobra, locust, downward facing dog, wisdom pose, contralateral limb raises, head to knee pose, bridge, reclined twist, and knees to chest; Systematic Relaxation; and Gratitude. Modifications were geared toward the [place]'s individual needs and preferences. was one of seven participants in Group Yoga. He fully participated, practicing all the postures offered and modifying according to his needs. He practiced excellent self- care and used his breath as a tool to enhance his practice. He will return to class as his schedule allows. /yunior/ MARY KATE MOORE, [id number] Family Practice Doctor Signed: 02/17/2024 14:48 MARY KATE MOORE [facility]
--- OUTSIDE RECORDS SUMMARY | 2024-06-29 19:03 | XMS_ITS | Encounter Summary ---
Author Name [facility] [facility] [place] [facility] [place] Address [address] [place] [address] Care Team Providers Care Sterile Preparation Technician Name Role Phone ABDIRAHMAN LAKE Primary [...] BASIC FAMIL Y Jun 24, 2009 112 [id number] [phone] ABHILASH GARAY PATIENT ANTHEM BCBS [place] FEP PREFERRED PROVIDER ORGANIZAT ION (PPO) FEP BASIC FAM Jun 24, 2009 112 [id number] [phone] ABHILASH GARAY PATIENT ANTHEM [place]BS [place] F[place] PREFERRED PROVIDER ORGANIZAT ION (PPO) FEP BASIC FAM Jun 24, 2009 112 [id number] [phone] ABHLIASH GARAY PATIENT ANTHEM [place] PREFERRED PROVIDER ORGANIZAT ION (PPO) FEP BASIC FAM Jun 24, 2009 112 [id number] [phone] ABHILASH GARAY PATIENT [place] PREFERRED PROVIDER ORGANIZAT ION (PPO) FEP BASIC FAM Jun 24, 2009 112 [id number] [phone] ABHILASH GARAY PATIENT BCBS [place] FEP PREFERRED PROVIDER ORGANIZAT ION (PPO) BASIC FAMIL Y Jun 24, 2009 112 [id number] ABHILASH GARAY PATIENT [place] F[place] PREFERRED PROVIDER ORGANIZAT ION (PPO) BASIC FAMIL Y Jun 24, 2009 112 [id number] ABHILASH GARAY PATIENT [place] PREFERRED PROVIDER ORGANIZAT ION (PPO) BASIC FAMIL Y Jun 24, 2009 112 [id number] [phone] ABHILASH GARAY PATIENT [place] FEP DENTAL DENTAL INSURANCE BASIC Jul 12, 2009 DENTAL [id number] ABHILASH GARAY PATIENT [place] F[place] PREFERRED PROVIDER ORGANIZAT ION (PPO) BASIC FAMIL Y Jun 24, 2009 112 [id number] ABHILASH GARAY PATIENT [place] FEP ([id number]) PRESCRIPT ION FEPRX Jun 24, 2009 [id number] [phone] ABHILASH GARAY PATIENT [place] FEP BCBS PRESCRIPT ION CAR[place] FEPRX PLAN Nov 21, 2021 [id number] ABHILASH GARAY PATIENT [place] FEPRX PLAN PRESCRIPT ION CAREM ARK FEPRX Nov 21, 2021 [id number] ABHILASH GARAY PATIENT [place]-F EP BCBS PRESCRIPT ION FEP CAREM ARK Nov 21, 2021 [id number] ABHILASH GARAY PATIENT [place]-F EP BCBS PRESCRIPT ION FEP Jun 23, 2010 [id number] RUBI GARAYNETH PATIENT MEDICARE ([place]) MEDICARE () PART A Feb 22, 2020 PART A [id number] ABHILASH GARAY PATIENT MEDICARE (WN) MEDICARE () PART A Feb 22, 2020 PART A [id number] ABHILASH GARAY PATIENT MEDICARE (WNR) MEDICARE (M) PART A Feb 22, 2020 PART A [id number] [phone] ABHILASH GARAY PATIENT MEDICARE (WNR) MEDICARE (M) PART A Feb 22, 2020 PART A [id number] ABHILASH GARAY PATIENT MEDICARE ([place]NR) MEDICARE (M) PART A Feb 22, 2020 PART A [id number] ABHILASH GARAY PATIENT Selected Encounter This section includes the information on record at [place] for the Encounter. Date/Time Encounter Type Encounter Description Reason Pro vider Source Feb 10, 2024 10:21 AM Outpatient Encounter TELEPHONE TRIAGE IHE Encounter [...] [facility] [place] [facility] Feb 25, 2024 11:00 AM AMBULATORY - NONE [facility] [place] [facility] Mar 04, 2024 01:00 PM AMBULATORY - MEDICINE [facility] [place] [facility] Mar 09, 2024 01:00 PM AMBULATORY - MEDICINE [facility] [place] [facility] Mar 11, 2024 11:00 AM AMBULATORY - MEDICINE [facility] [place] [facility] Mar 15, 2024 12:15 PM AMBULATORY - MEDICINE [facility] [place] [facility] Mar 25, 2024 01:00 PM AMBULATORY - MEDICINE [facility] [place] [facility] Apr 06, 2024 10:30 AM AMBULATORY - MEDICINE [facility] Apr 07, 2024 03:30 PM AMBULATORY - NONE [facility] [place] [facility] Apr 08, 2024 01:00 PM AMBULATORY - MEDICINE [place] [facility] [place] [facility] Apr 12, 2024 11:00 AM AMBULATORY - MEDICINE [facility] [place] [facility] Apr 15, 2024 10:00 AM AMBULATORY - MEDICINE [facility] [place] [facility] Apr 19, 2024 11:00 AM AMBULATORY - MEDICINE [place] [facility] [place] [facility] Apr 22, 2024 09:00 AM AMBULATORY - MEDICINE [place] [facility] [place] [facility] May 03, 2024 01:00 PM AMBULATORY - MEDICINE [place] [facility] [place] [facility] May 17, 2024 01:00 PM [facility] May 28, 2024 07:30 AM AMBULATORY - MEDICINE [place] [facility] [place] [facility] Jun 03, 2024 01:00 PM AMBULATORY - MEDICINE [place] [facility] [place] [facility] Jun 08, 2024 03:00 PM AMBULATORY - [facility] Jun 11, 2024 08:00 AM AMBULATORY - MEDICINE [facility] Social [...] 2023 09:12 AM VA-TOBACCO NEVER USED [facility] Tobacco Use History This section includes a history of the smoking, or tobacco-related health factors, that were collected on or before the date of the Encounter. The data comes from the [place] facility where the Encounter took place. Date/Time Smoking Status/Tobacco Use Comment Gilberto boston Aug 09, 2021 09:20 AM VA-TOBACCO NEVER USED [facility] Encounter Notes: All associated encounter notes This section contains the clinical notes associated to the Encounter. Date/Time Encounter Note(s) Provider Source Feb 20, 2024 10:17 AM ADDENDUM: LOCAL TITLE: Addendum STANDARD TITLE: ADDENDUM DATE OF NOTE: FEB 20, 2024@10:17:09 ENTRY DATE: FEB 20, 2024@10:17:11 AUTHOR: BEATRIZ OCHOA EXP COSIGNER: URGENCY: STATUS: COMPLETED pt calling re: pain clinic referral advised pt the order was entered 02/16, is active pt requesting trx to pain mgmt clinic to doc I attempted to warm trx pt specialty line rec'd vm due to high volume pt info left for call back to to schedule pt agrees to await call /es/ BEATRIZ OCHOA VISN1 CCC RN Signed: 02/20/2024 10:19 Receipt Acknowledged By: 02/25/2024 12:10 /es/ BREANNA BAKER RN-BC REGISTERED NURSE 02/20/2024 15:06 /yunior/ EUGENIE SALVADOR LPN Licensed Practical Nurse === --- Original Document --- 02/10/24 CCC: CLINICAL TRIAGE: Patient Demographics Patient Name: ABHILASH GARAY Patient Primary [address]: [address] [place] [address] Patient Primary Phone: [phone] Patient : 1955 Patient Age: 68 Caller/Recipient Relation to Patient: Self Emergency Contact: ANNA GARAY Triage Summary Conducted triage/discussed symptoms Utilized the Triage Tool: Yes Chief Complaint: Foot Pain System WHEN: Now Nurse's Recommendation / WHEN: Now System WHERE: Emergency department Nurse's Recommendation / WHERE: [facility] Patient Disposition Patient/Caregiver agrees to plan of care: No Nursing Plan and Disposition Other course(s) of action Provided guidance for worsening symptoms: *Caller/Patient* advised to call facilities [place] Clinical Contact Center or seek immediate medical attention for new or worsening symptoms Nurse Summary Nurse Summary: Hx of Neuropathy of bilat feet. Describes feet fall asleep and go numb. has been going to accupuncture and podiatry. Persistant pain and issues and would like a Pain management consult to discuss further. Pecos does not want to go to the ER as this is an ongoing condition for him. Tele-EC not available. Please call to discuss further and schedule appt. Best call back number [phone] Clinical Contact Center Codes Clinic/Location: [facility] PHONE NAYANA RN Decision Support System Output: Triage Complete Triage Date: 02/10/2024, 10:11 AM Triage Note: Decision Support Tool Used: [facility] Phone Triage Fri, 10 Feb 2024 14:10:25 +0000 [facility] Demographics 68 y/o Male Results CC: Foot Pain Software suggested: Now Software suggested follow-up location: Emergency department Values and Measures Duration of CC: 1 Years Alerts 1) This patient is at high risk for admission. Positive Responses HPI: foot pain, severe HPI: foot pain, worsening Negative Responses Denies: HPI: foot injury, within past 2 days Denies: HPI: heel pain, moderate to severe Denies: HPI: heel pain, severe Denies: HPI: leg pain, localized to ankle Denies: HPI: numbness, foot or leg, sudden onset Denies: HPI: one leg is cool to touch Denies: HPI: pale or marroquin discoloration in one leg Denies: HPI: toe pain, localized to toenail or periungual skin Denies: HPI: toe pallor IMPORTANT: This note was created by [facility] Clinical Contact Center staff. Please do not alert the staff member by adding them as a signer for future communications. Alerts are not monitored by this user. /es/ CATHY CHÁVEZ [facility] RN Signed: 02/10/2024 10:21 Receipt Acknowledged By: 02/13/2024 15:50 /es/ STEF BAKERN RN-BC REGISTERED NURSE 02/19/2024 10:38 /es/ EUGENIE SALVADOR LPN Licensed Practical Nurse 02/13/2024 ADDENDUM STATUS: COMPLETED Forwarded request noted above to PCP from [place] for referral to pain management clinic at [facility] related to his neuropathy. /yunior/ BREANNA BAKER RNKRISTEN REGISTERED NURSE Signed: 02/13/2024 15:52 Receipt Acknowledged By: 02/17/2024 11:10 /oriana BLISS MD PRIMARY CARE PHYSICIAN 02/17/2024 ADDENDUM STATUS: COMPLETED Vet was sent to triage - declined triage. Vet reported he has been trying for over a week to get an update from his PACT regarding a referral to pain clinic for his ongoing/chronic neuropathy. RN was unbable to see a referral in CPRS. Collins is also looking for an update on his [facility] (did not see in CPRS). Collins is requesting a call back KATYA to get an update on these 2 requests, and to understand next steps/expectations. Collins reported he was also expecting a call back from a supervisor cell operation yesterday, as he expressed frustation regarding not hearing back from his PACT. He noted he never received a call from the supervisor cell operation. Collins is very pleasant, but expressed frustation, and noted he will be a squeaky wheel and will keep calling until he is able to speak to someone in PACT. Please give collins a call back; collins can be reached @ [phone]. /yunior/ ANGEL VAUGHAN CCC RN Signed: 02/17/2024 10:09 Receipt Acknowledged By: 02/19/2024 10:36 /oriana BLISS MD PRIMARY CARE PHYSICIAN 02/18/2024 10:57 /BREANNA Gillespie REGISTERED NURSE 02/17/2024 ADDENDUM STATUS: COMPLETED The Pecos had orthopedics consultation placed in the beginning of December for his back pain. To continue with Salonpas I ordered Tylenol as needed Patient has been trying physical therapy, chiropractor and acupuncture I placed a pain consultation /oriana BLISS MD PRIMARY CARE PHYSICIAN Signed: 02/17/2024 11:15 Receipt Acknowledged By: 02/18/2024 10:57 /BREANNA Gillespie REGISTERED NURSE 02/17/2024 ADDENDUM STATUS: COMPLETED Called and he reports that he was in [facility] the other day for yoga and that he stopped to speak with community care about consult for massage therapy and that they could not find one in his chart. Author advised that PACT entered [facility] consult, as required by [place] for massage therapy requests, for review and advised that he does have an appt scheduled with [facility] staff next month. Author advised [place] that [facility] by [facility]CP today as requested by Pecos previously, and that he will be hearing from the pain clinic scheduling staff to assist with scheduling initial visit. Author also advised of information from pcp noted above, in response to recent pain clinic consult request for neuropathy symptom management. Author also inquired if there were any other concerns that need addressed by PACT and Pecos denied any further needs at this time. reports that he is scheduled with aquatic therapy for initial visit this and is looking forward to that visit. /BREANNA Gillespie RN-RONI REGISTERED NURSE Signed: 02/18/2024 11:01 BEATRIZ OCHOA [place] [facility] Feb 17, 2024 11:10 AM ADDENDUM: LOCAL TITLE: Addendum STANDARD TITLE: ADDENDUM DATE OF NOTE: FEB 17, 2024@11:10:43 ENTRY DATE: FEB 17, 2024@11:10:44 AUTHOR: VESTA BLISS COSIGNER: URGENCY: STATUS: COMPLETED The Pecos had orthopedics consultation placed in the beginning of December for his back pain. To continue with Salonpas I ordered Tylenol as needed Patient has been trying physical therapy, chiropractor and acupuncture I placed a pain consultation /oriana BLISS MD PRIMARY CARE PHYSICIAN Signed: 02/17/2024 11:15 Receipt Acknowledged By: 02/18/2024 10:57 /BREANNA Gillespie RN-RONI REGISTERED NURSE === --- Original Document --- 02/10/24 CCC: CLINICAL TRIAGE: Patient Demographics Patient Name: ABHILASH GARAY Patient Primary Address: [address] [place] [id number] Patient Primary Phone: [phone] Patient : 1955 Patient Age: 68 Caller/Recipient Relation to Patient: Self Emergency Contact: ANNA GARAY Triage Summary Conducted triage/discussed symptoms Utilized the Triage Tool: Yes Chief Complaint: Foot Pain System WHEN: Now Nurse's Recommendation / WHEN: Now System WHERE: Emergency department Nurse's Recommendation / WHERE: [facility] Patient Disposition Patient/Caregiver agrees to plan of care: No Nursing Plan and Disposition Other course(s) of action Provided guidance for worsening symptoms: *Caller/Patient* advised to call facilities [place] Clinical Contact Center or seek immediate medical attention for new or worsening symptoms Nurse Summary Nurse Summary: Hx of Neuropathy of bilat feet. Describes feet fall asleep and go numb. Pecos has been going to accupuncture and podiatry. Persistant pain and issues and would like a Pain management consult to discuss further. does not want to go to the ER as this is an ongoing condition for him. Tele-EC not available. Please call to discuss further and schedule appt. Best call back number [phone] Clinical Contact Center Codes Clinic/Location: [facility] PHONE [facility] RN Decision Support System Output: Triage Complete Triage Date: 02/10/2024, 10:11 AM Triage Note: Decision Support Tool Used: [facility] Phone Triage 10 Feb 2024 14:10:25 +0000 [facility] Demographics 68 y/o Male Results CC: Foot Pain Software suggested: Now Software suggested follow-up location: Emergency department Values and Measures Duration of CC: 1 Years Alerts 1) This patient is at high risk for admission. Positive Responses HPI: foot pain, severe HPI: foot pain, worsening Negative Responses Denies: HPI: foot injury, within past 2 days Denies: HPI: heel pain, moderate to severe Denies: HPI: heel pain, severe Denies: HPI: leg pain, localized to ankle Denies: HPI: numbness, foot or leg, sudden onset Denies: HPI: one leg is cool to touch Denies: HPI: pale or marroquin discoloration in one leg Denies: HPI: toe pain, localized to toenail or periungual skin Denies: HPI: toe pallor IMPORTANT: This note was created by [place] [facility] Clinical Contact Center staff. Please do not alert the staff member by adding them as a signer for future communications. Alerts are not monitored by this user. /es/ CATHY CHÁVEZ 01 [facility] RN Signed: 02/10/2024 10:21 Receipt Acknowledged By: 02/13/2024 15:50 /yunior/ BREANNA BAKER RN-BC REGISTERED NURSE * AWAITING SIGNATURE * EUGENIE SALVADOR 02/13/2024 ADDENDUM STATUS: COMPLETED Forwarded request noted above to PCP from for referral to pain management clinic at [facility] related to his neuropathy. /yunior/ BREANNA BAKER RN-BC REGISTERED NURSE Signed: 02/13/2024 15:52 Receipt Acknowledged By: 02/17/2024 11:10 /es/ VESTA BLISS MD PRIMARY CARE PHYSICIAN 02/17/2024 ADDENDUM STATUS: COMPLETED Vet was sent to triage - declined triage. Collins reported he has been trying for over a week to get an update from his PACT regarding a referral to pain clinic for his ongoing/chronic neuropathy. RN was unbable to see a referral in CPRS. Collins is also looking for an update on his referral to Massage Therapy via [facility] (did not see in CPRS). Collins is requesting a call back KATYA to get an update on these 2 requests, and to understand next steps/expectations. Collins reported he was also expecting a call back from a supervisor cell operation yesterday, as he expressed frustation regarding not hearing back from his PACT. He noted he never received a call from the supervisor cell operation. Humbertot is very pleasant, but expressed frustation, and noted he will be a squeaky wheel and will keep calling until he is able to speak to someone in PACT. Please give collins a call back; humbertot can be reached @ [phone]. /es/ ANGEL VAUGHAN CCC RN Signed: 02/17/2024 10:09 Receipt Acknowledged By: * AWAITING SIGNATURE * VESTA BLISS 02/18/2024 10:57 /yunior/ BREANNA BAKER RN-RONI REGISTERED NURSE 02/17/2024 ADDENDUM STATUS: UNSIGNED You may not VIEW this UNSIGNED Addendum. HERIBERTODENILSONVESTA Baker [place] [facility] [facility] Feb 17, 2024 10:01 AM ADDENDUM: LOCAL TITLE: Addendum STANDARD TITLE: ADDENDUM DATE OF NOTE: FEB 17, 2024@10:01:31 ENTRY DATE: FEB 17, 2024@10:01:32 AUTHOR: ANGEL JEAN EXP COSIGNER: URGENCY: STATUS: COMPLETED Vet was sent to triage - declined triage. Vet reported he has been trying for over a week to get an update from his PACT regarding a referral to pain clinic for his ongoing/chronic neuropathy. RN was unbable to see a referral in CPRS. Vet is also looking for an update on his referral to Massage Therapy via [facility] (did not see in CPRS). Vet is requesting a call back KATYA to get an update on these 2 requests, and to understand next steps/expectations. Vet reported he was also expecting a call back from a supervisor cell operation yesterday, as he expressed frustation regarding not hearing back from his PACT. He noted he never received a call from the supervisor cell operation. [place]umbertot is very pleasant, but expressed frustation, and noted he will be a squeaky wheel and will keep calling until he is able to speak to someone in PACT. Please give vet a call back; vet can be reached @ [phone]. /yunior/ ANGEL VAUGHAN CCC RN Signed: 02/17/2024 10:09 Receipt Acknowledged By: 02/19/2024 10:36 /yunior/ VESTA BLISS MD PRIMARY CARE PHYSICIAN 02/18/2024 10:57 /yunior/ BREANNA BAKER RN-RONI REGISTERED NURSE === --- Original Document --- 02/10/24 CCC: CLINICAL TRIAGE: Patient Demographics Patient Name: ABHILASH GARAY Patient Primary [address]: [address] [place] [address] Patient Primary Phone: [phone] Patient : 1955 Patient Age: 68 Caller/Recipient Relation to Patient: Self Emergency Contact: ANNA GARAY Triage Summary Conducted triage/discussed symptoms Utilized the Triage Tool: Yes Chief Complaint: Foot Pain System WHEN: Now Nurse's Recommendation / WHEN: Now System WHERE: Emergency department Nurse's Recommendation / WHERE: ED [place] Patient Disposition Patient/Caregiver agrees to plan of care: No Nursing Plan and Disposition Other course(s) of action Provided guidance for worsening symptoms: *Caller/Patient* advised to call facilities [place] Clinical Contact Center or seek immediate medical attention for new or worsening symptoms Nurse Summary Nurse Summary: Hx of Neuropathy of bilat feet. Describes feet fall asleep and go numb. Pecos has been going to accupuncture and podiatry. Persistant pain and issues and would like a Pain management consult to discuss further. does not want to go to the ER as this is an ongoing condition for him. Tele-EC not available. Please call to discuss further and schedule appt. Best call back number [phone] Clinical Contact Center Codes Clinic/Location: [facility]1 [facility] PHONE [facility] RN Decision Support System Output: Triage Complete Triage Date: 02/10/2024, 10:11 AM Triage Note: Decision Support Tool Used: [facility] Phone Triage 10 Feb 2024 14:10:25 +0000 [facility] Demographics 68 y/o Male Results CC: Foot Pain Software suggested: Now Software suggested follow-up location: Emergency department Values and Measures Duration of CC: 1 Years Alerts 1) This patient is at high risk for admission. Positive Responses HPI: foot pain, severe HPI: foot pain, worsening Negative Responses Denies: HPI: foot injury, within past 2 days Denies: HPI: heel pain, moderate to severe Denies: HPI: heel pain, severe Denies: HPI: leg pain, localized to ankle Denies: HPI: numbness, foot or leg, sudden onset Denies: HPI: one leg is cool to touch Denies: HPI: pale or marroquin discoloration in one leg Denies: HPI: toe pain, localized to toenail or periungual skin Denies: HPI: toe pallor IMPORTANT: This note was created by [facility] Clinical Contact Center staff. Please do not alert the staff member by adding them as a signer for future communications. Alerts are not monitored by this user. /yunior/ CATHY Pruitt CCC RN Signed: 02/10/2024 10:21 Receipt Acknowledged By: 02/13/2024 15:50 /yunior/ BREANNA BAKER RN-BC REGISTERED NURSE * AWAITING SIGNATURE * MADELEINEEUGENIE 02/13/2024 ADDENDUM STATUS: COMPLETED Forwarded request noted above to PCP from for referral to pain management clinic at [facility] related to his neuropathy. /yunior/ BREANNA BAKER RN-BC REGISTERED NURSE Signed: 02/13/2024 15:52 Receipt Acknowledged By: 02/17/2024 11:10 /oriana BLISS MD PRIMARY CARE PHYSICIAN 02/17/2024 ADDENDUM STATUS: COMPLETED The Pecos had orthopedics consultation placed in the beginning of December for his back pain. To continue with Salonpas I ordered Tylenol as needed Patient has been trying physical therapy, chiropractor and acupuncture I placed a pain consultation /yunior/ VESTA BLISS MD PRIMARY CARE PHYSICIAN Signed: 02/17/2024 11:15 Receipt Acknowledged By: 02/18/2024 10:57 /yunior/ BREANNA BAKER RN-BC REGISTERED NURSE 02/17/2024 ADDENDUM STATUS: COMPLETED Called and he reports that he was in [facility] the other day for yoga and that he stopped to speak with community care about consult for massage therapy and that they could not find one in his chart. Author advised that [facility], as required by [place] for massage therapy requests, for review and advised that he does have [facility]. Author advised that he does have a [place] pain clinic consult entered by PCP today as requested by previously, and that he will be hearing from the pain clinic scheduling staff to assist with scheduling initial visit. Author also advised Pecos of information from pcp noted above, in response to recent pain clinic consult request for neuropathy symptom management. Author also inquired if there were any other concerns that need addressed by PACT and denied any further needs at this time. reports that he is scheduled with aquatic therapy for initial visit this and is looking forward to that visit. /yunior/ BREANNA BAKER RN-BC REGISTERED NURSE Signed: 02/18/2024 11:01 ANGEL JEAN [place] [facility] [place] [facility] Feb 13, 2024 03:50 PM ADDENDUM: LOCAL TITLE: Addendum STANDARD TITLE: ADDENDUM DATE OF NOTE: FEB 13, 2024@15:50:43 ENTRY DATE: FEB 13, 2024@15:50:44 AUTHOR: RADHIKA GOMEZ COSIGNER: URGENCY: STATUS: COMPLETED Forwarded request noted above to PCP from [place] for referral to pain management clinic at [facility] related to his neuropathy. /BREANNA Gillespie RN-BC REGISTERED NURSE Signed: 02/13/2024 15:52 Receipt Acknowledged By: 02/17/2024 11:10 /yunior/ VESTA BLISS MD PRIMARY CARE PHYSICIAN === --- Original Document --- 02/10/24 CCC: CLINICAL TRIAGE: Patient Demographics Patient Name: ABHILASH GARAY Patient Primary Address: [address] [place] [id number] Patient Primary Phone: [phone] Patient : 1955 Patient Age: 68 Caller/Recipient Relation to Patient: Self Emergency Contact: ANNA GARAY Triage Summary Conducted triage/discussed symptoms Utilized the Triage Tool: Yes Chief Complaint: Foot Pain System WHEN: Now Nurse's Recommendation / WHEN: Now System WHERE: Emergency department Nurse's Recommendation / WHERE: [facility] Patient Disposition Patient/Caregiver agrees to plan of care: No Nursing Plan and Disposition Other course(s) of action Provided guidance for worsening symptoms: *Caller/Patient* advised to call facilities [place] Clinical Contact Center or seek immediate medical attention for new or worsening symptoms Nurse Summary Nurse Summary: Hx of Neuropathy of bilat feet. Describes feet fall asleep and go numb. Pecos has been going to accupuncture and podiatry. Persistant pain and issues and would like a Pain management consult to discuss further. Pecos does not want to go to the ER as this is an ongoing condition for him. Tele-EC not available. Please call to discuss further and schedule appt. Best call back number [phone] Clinical Contact Center Codes Clinic/Location: [facility] PHONE CCC RN Decision Support System Output: Triage Complete Triage Date: 02/10/2024, 10:11 AM Triage Note: Decision Support Tool Used: [facility] Phone Triage Leonila, 10 Feb 2024 14:10:25 +0000 [facility] Demographics 68 y/o Male Results CC: Foot Pain Software suggested: Now Software suggested follow-up location: Emergency department Values and Measures Duration of CC: 1 Years Alerts 1) This patient is at high risk for admission. Positive Responses HPI: foot pain, severe HPI: foot pain, worsening Negative Responses Denies: HPI: foot injury, within past 2 days Denies: HPI: heel pain, moderate to severe Denies: HPI: heel pain, severe Denies: HPI: leg pain, localized to ankle Denies: HPI: numbness, foot or leg, sudden onset Denies: HPI: one leg is cool to touch Denies: HPI: pale or marroquin discoloration in one leg Denies: HPI: toe pain, localized to toenail or periungual skin Denies: HPI: toe pallor IMPORTANT: This note was created by [facility] Clinical Contact Center staff. Please do not alert the staff member by adding them as a signer for future communications. Alerts are not monitored by this user. /es/ CATHY RABAGOWITH SAIRA 01 CCC RN Signed: 02/10/2024 10:21 Receipt Acknowledged By: 02/13/2024 15:50 /es/ BREANNA BAKER RN- REGISTERED NURSE * AWAITING SIGNATURE * EUGENIE SALVADOR 02/17/2024 ADDENDUM STATUS: COMPLETED Vet was sent to triage - declined triage. Vet reported he has been trying for over a week to get an update from his PACT regarding a referral to pain clinic for his ongoing/chronic neuropathy. RN was unbable to see a referral in CPRS. [place] is also looking for an update on his referral to Massage Therapy via [facility] (did not see in CPRS). Collins is requesting a call back KATYA to get an update on these 2 requests, and to understand next steps/expectations. Humbertot reported he was also expecting a call back from a supervisor cell operation yesterday, as he expressed frustation regarding not hearing back from his PACT. He noted he never received a call from the supervisor cell operation. Humbertot is very pleasant, but expressed frustation, and noted he will be a squeaky wheel and will keep calling until he is able to speak to someone in PACT. Please give humbertot a call back; humbertot can be reached @ [phone]. /es/ ANGEL STEWARTN1 CCC RN Signed: 02/17/2024 10:09 Receipt Acknowledged By: * AWAITING SIGNATURE * VESTA BLISS * AWAITING SIGNATURE * RADHIKA GOMEZ 02/17/2024 ADDENDUM STATUS: UNSIGNED You may not VIEW this UNSIGNED Addendum. RADHIKA GOMEZ [place] [facility] [place] [facility] Feb 10, 2024 10:21 AM RN PROGRESS NOTE: LOCAL TITLE: [facility]: CLINICAL TRIAGE STANDARD TITLE: RN PROGRESS NOTE DATE OF NOTE: FEB 10, 2024@10:21:27 ENTRY DATE: FEB 10, 2024@10:21:28 AUTHOR: CATHY FRASER COSIGNER: URGENCY: STATUS: COMPLETED CCC: CLINICAL TRIAGE Has ADDENDA Patient Demographics Patient Name: ABHILASH GARAY Patient Primary Address: [address] [place] [id number] Patient Primary Phone: [phone] Patient : 1955 Patient Age: 68 Caller/Recipient Relation to Patient: Self Emergency Contact: ANNA GARAY Triage Summary Conducted triage/discussed symptoms Utilized the Triage Tool: Yes Chief Complaint: Foot Pain System WHEN: Now Nurse's Recommendation / WHEN: Now System WHERE: Emergency department Nurse's Recommendation / WHERE: [facility] Patient Disposition Patient/Caregiver agrees to plan of care: No Nursing Plan and Disposition Other course(s) of action Provided guidance for worsening symptoms: *Caller/Patient* advised to call facilities [place] Clinical Contact Center or seek immediate medical attention for new or worsening symptoms Nurse Summary Nurse Summary: Hx of Neuropathy of bilat feet. Describes feet fall asleep and go numb. Pecos has been going to accupuncture and podiatry. Persistant pain and issues and would like a Pain management consult to discuss further. Pecos does not want to go to the ER as this is an ongoing condition for him. Tele-EC not available. Please call to discuss further and schedule appt. Best call back number [phone] Clinical Contact Center Codes Clinic/Location: V1 [facility] PHONE [facility] RN Decision Support System Output: Triage Complete Triage Date: 02/10/2024, 10:11 AM Triage Note: Decision Support Tool Used: [facility] Phone Triage 10 Feb 2024 14:10:25 +0000 [facility] Demographics 68 y/o Male Results CC: Foot Pain Software suggested: Now Software suggested follow-up location: Emergency department Values and Measures Duration of CC: 1 Years Alerts 1) This patient is at high risk for admission. Positive Responses HPI: foot pain, severe HPI: foot pain, worsening Negative Responses Denies: HPI: foot injury, within past 2 days Denies: HPI: heel pain, moderate to severe Denies: HPI: heel pain, severe Denies: HPI: leg pain, localized to ankle Denies: HPI: numbness, foot or leg, sudden onset Denies: HPI: one leg is cool to touch Denies: HPI: pale or marroquin discoloration in one leg Denies: HPI: toe pain, localized to toenail or periungual skin Denies: HPI: toe pallor IMPORTANT: This note was created by [facility] Clinical Contact Center staff. Please do not alert the staff member by adding them as a signer for future communications. Alerts are not monitored by this user. /es/ CATHY CHÁVEZ 01 [facility] RN Signed: 02/10/2024 10:21 Receipt Acknowledged By: 02/13/2024 15:50 /es/ BREANNA BAKER RN-RONI REGISTERED NURSE 02/19/2024 10:38 /es/ EUGENIE SALVADOR LPN Licensed Practical Nurse 02/13/2024 ADDENDUM STATUS: COMPLETED Forwarded request noted above to PCP from for referral to pain management clinic at [facility] related to his neuropathy. /es/ BREANNA BAKER RN-RONI REGISTERED NURSE Signed: 02/13/2024 15:52 Receipt Acknowledged By: 02/17/2024 11:10 /es/ VESTA BLISS MD PRIMARY CARE PHYSICIAN 02/17/2024 ADDENDUM STATUS: COMPLETED Vet was sent to triage - declined triage. [place] reported he has been trying for over a week to get an update from his PACT regarding a referral to pain clinic for his ongoing/chronic neuropathy. RN was unbable to see a referral in CPRS. [place] is also looking for an update on his referral to Massage Therapy via [facility] (did not see in CPRS). [place] is requesting a call back KATYA to get an update on these 2 requests, and to understand next steps/expectations. [place] reported he was also expecting a call back from a supervisor cell operation yesterday, as he expressed frustation regarding not hearing back from his PACT. He noted he never received a call from the supervisor cell operation. Humbertot is very pleasant, but expressed frustation, and noted he will be a squeaky wheel and will keep calling until he is able to speak to someone in PACT. Please give vet a call back; vet can be reached @ [phone]. /yunior/ ANGEL VAUGHAN CCC RN Signed: 02/17/2024 10:09 Receipt Acknowledged By: 02/19/2024 10:36 /oriana BLISS MD PRIMARY CARE PHYSICIAN 02/18/2024 10:57 /BREANNA Gillespie REGISTERED NURSE 02/17/2024 ADDENDUM STATUS: COMPLETED The Pecos had orthopedics consultation placed in the beginning of December for his back pain. To continue with Salonpas I ordered Tylenol as needed Patient has been trying physical therapy, chiropractor and acupuncture I placed a pain consultation /oriana BLISS MD PRIMARY CARE PHYSICIAN Signed: 02/17/2024 11:15 Receipt Acknowledged By: 02/18/2024 10:57 /BREANNA Gillespie REGISTERED NURSE 02/17/2024 ADDENDUM STATUS: COMPLETED Called Pecos and he reports that he was in [facility] the other day for yoga and that he stopped to speak with community care about consult for massage therapy and that they could not find one in his chart. Author advised that PACT entered [facility] consult, as required by [place] for massage therapy requests, for review and advised that he does have an appt scheduled [facility] staff next month. Author advised Pecos that [facility] by [facility]CP today as requested by Anitha previously, and that he will be hearing from the pain clinic scheduling staff to assist with scheduling initial visit. Author also advised Pecos of information from pcp noted above, in response to recent pain clinic consult request for neuropathy symptom management. Author also inquired if there were any other concerns that need addressed by PACT and Pecos denied any further needs at this time. Pecos reports that he is scheduled with aquatic therapy for initial visit this and is looking forward to that visit. /BREANNA Gillespie REGISTERED NURSE Signed: 02/18/2024 11:01 02/20/2024 ADDENDUM STATUS: COMPLETED pt calling re: pain clinic referral advised pt the order was entered 02/16, is active pt requesting trx to pain mgmt clinic to doc I attempted to warm trx pt specialty line rec'd vm due to high volume pt info left for call back to to schedule pt agrees to await call /yunior/ BEATRIZ VAUGHAN [facility] RN Signed: 02/20/2024 10:19 Receipt Acknowledged By: * AWAITING SIGNATURE * RADHIKA GOMEZ * AWAITING SIGNATURE * EUGENIE SALVADOR TRISHA M [place] [facility]
--- OUTSIDE RECORDS SUMMARY | 2024-06-29 19:03 | XMS_ITS | Encounter Summary ---
Author Name [facility] [place] Address [address] [place] [address] Care Team Providers Care Dowel Inserting Machine Operator Name Role Phone ABDIRAHMAN LAKE [...] BASIC FAMIL Y Jun 24, 2009 112 [id number] [phone] ABHILASH GARAY PATIENT ANTHEM BCBS [place] F[place] PREFERRED PROVIDER ORGANIZAT ION (PPO) FEP BASIC FAM Jun 24, 2009 112 [id number] [phone] ABHILASH GARAY PATIENT ANTHEM BCBS [place] FEP PREFERRED PROVIDER ORGANIZAT ION (PPO) FEP BASIC FAM Jun 24, 2009 112 [id number] [phone] ABHILASH GARAY PATIENT ANTHEM BC[place] FEP PREFERRED PROVIDER ORGANIZAT ION (PPO) FEP BASIC FAM Jun 24, 2009 112 [id number] [phone] ABHILASH GARAY PATIENT BC[place] FEP PREFERRED PROVIDER ORGANIZAT ION (PPO) FEP BASIC FAM Jun 24, 2009 112 [id number] [phone] RUBI GARAYNETH PATIENT BCBS [place] FEP PREFERRED PROVIDER ORGANIZAT ION (PPO) BASIC FAMIL Y Jun 24, 2009 112 [id number] RUBI GARAYNETH PATIENT [place] PREFERRED PROVIDER ORGANIZAT ION (PPO) BASIC FAMIL Y Jun 24, 2009 112 [id number] [phone] RUBI GARAYNETH PATIENT [place] F[place] PREFERRED PROVIDER ORGANIZAT ION (PPO) BASIC FAMIL Y Jun 24, 2009 112 [id number] [phone] RUBI GARAYNETH PATIENT [place] FEP DENTAL DENTAL INSURANCE BASIC Jul 12, 2009 DENTAL [id number] [phone] DEJAHDANIKARUBI ACEVESNETH PATIENT [place] FEP PREFERRED PROVIDER ORGANIZAT ION (PPO) BASIC FAMIL Y Jun 24, 2009 [id number] ABHILASH GARAY PATIENT [place] FEP ([id number]) PRESCRIPT ION FEPRX Jun 24, 2009 [id number] [phone] ABHILASH GARAY PATIENT [place] FEP BCBS PRESCRIPT ION CAREM ARK FEPRX PLAN Nov 21, 2021 [id number] ABHILASH GARAY PATIENT [place] FEPRX PLAN PRESCRIPT ION CAREM ARK FEPRX Nov 21, 2021 [id number] ABHILASH GARAY PATIENT [place]-F [place] BCBS PRESCRIPT ION FEP CAREM ARK Nov 21, 2021 [id number] ABHILASH GARAY PATIENT [place]-F [place] BCBS PRESCRIPT ION FEP Jun 23, 2010 [id number] RUBI GARAYNETH PATIENT MEDICARE ([facility]) MEDICARE () PART A Feb 22, 2020 PART A [id number] [phone] ABHILASH GARAY PATIENT MEDICARE (WNR) MEDICARE (M) PART A Feb 22, 2020 PART A [id number] ABHILASH GARAY PATIENT MEDICARE (WNR) MEDICARE (M) PART A Feb 22, 2020 PART A [id number] ABHILASH GARAY PATIENT MEDICARE (WNR) MEDICARE (M) PART A Feb 22, 2020 PART A [id number] ABHILASH GARAY PATIENT MEDICARE (WNR) MEDICARE (M) PART A Feb 22, 2020 PART A [id number] ABHILASH GARAY PATIENT Selected Encounter This section includes the information on record at [place] for the Encounter. Date/Time Encounter Type Encounter Description Reason Pro vider Source Feb 19, 2024 04:07 PM Outpatient Encounter ADMIN PAT ACTIVTIES (MASNONCT) [...] Appointment Type Appointme nt Facility Name Feb 25, 2024 11:00 AM AMBULATORY - NONE [place] [facility] [place] [facility] Mar 04, 2024 01:00 PM AMBULATORY [place]ICINE [place] [facility] [place] [facility] Mar 09, 2024 01:00 PM AMBULATORY [place] [facility] [place] [facility] Mar 11, 2024 11:00 AM AM[place]ULATORY [place] [facility] [place] [facility] Mar 15, 2024 12:15 PM AMBULATORY [place]INE [place] [facility] [place] [facility] Mar 25, 2024 01:00 PM AMBULATORY [place] [facility] [place] [facility] Apr 06, 2024 10:30 AM AMBULATORY - MEDICINE [facility] Apr 07, 2024 03:30 PM AMBULATORY - NONE [place] [facility] [place] [facility] Apr 08, 2024 01:00 PM AMBULATORY [place]ICINE [place] [facility] [place] [facility] Apr 12, 2024 11:00 AM AMBULATORY [place]ICINE [place] [facility] [place] [facility] Apr 15, 2024 10:00 AM AMBULATORY - [place]ICINE [place] [facility] [place] [facility] Apr 19, 2024 11:00 AM AMBULATORY [place]ICINE [place] [facility] [place] [facility] Apr 22, 2024 09:00 AM AMBULATORY [place]INE [place] [facility] [place] [facility] May 03, 2024 01:00 PM AMBULATORY [place] [facility] [place] [facility] May 17, 2024 01:00 PM AMBULATORY - REHAB [facility] May 28, 2024 07:30 AM AMBULATORY [place]ICINE [place] [facility] [place] [facility] Jun 03, 2024 01:00 PM AMBULATORY [place] [facility] [place] [facility] Jun 08, 2024 03:00 PM AMBULATORY - REHAB [facility] Jun 11, 2024 08:00 AM AMBULATORY - MEDICINE [facility] Jun 11, 2024 02:00 PM AMBULATORY - REHAB [facility] Social History: Smoking Status (Most [...] 08, 2023 09:12 AM [place]-TOBACCO NEVER USED [facility] Tobacco Use History This section includes a history of the smoking, or tobacco-related health factors, that were collected on or before the date of the Encounter. The data comes from the [place] facility where the Encounter took place. Date/Time Smoking Status/Tobacco Use Comment Gilberto boston Aug 09, 2021 09:20 AM [place]-TOBACCO NEVER USED [facility] Encounter Notes: All associated encounter notes This section contains the clinical notes associated to the Encounter. Date/Time Encounter Note(s) Provider Source Feb 19, 2024 04:07 PM PHARMACY NOTE: LOCAL TITLE: V1 PHARMACY CUSTOMER CARE MEDICATION RENEWAL STANDARD TITLE: PHARMACY NOTE DATE OF NOTE: FEB 19, 2024@16:07 ENTRY DATE: FEB 19, 2024@16:07:54 AUTHOR: JONATAN SAMANO COSIGNER: URGENCY: STATUS: COMPLETED Date: Jan Division: [facility] referred by Pharmacy Call Center for medication renewal: Non-controlled/maintenance medication Medications requested: [id number] POTASSIUM CITRATE 10MEQ SA TAB Defer to primary care provider To be mailed . Please review and renew if appropriate. *This note was generated by [facility]/PR Pharmacy Customer Care. If you have any questions or need assistance, do not contact this author. Please refer all questions to your local, on-site pharmacy departments. /yunior/ JONATAN SAMANO CPhT Grinding Machine Operator Automatic, [place]/Pharmacy Customer Care Signed: 02/19/2024 16:08 Receipt Acknowledged By: 02/25/2024 12:15 /yunior/ GE PEREIRA NP NURSE PRACTITIONER 02/25/2024 11:27 /yunior/ STEF BAKREN RN-BC REGISTERED NURSE JONATAN SAMANO [facility]
--- OUTSIDE RECORDS SUMMARY | 2024-06-29 19:03 | XMS_ITS | Encounter Summary ---
Author Name [facility] [place] Address [address] [place] [address] Care Team Providers Care Scientific Investigator Name Role Phone ABDIRAHMAN LAKE Primary Care [...] BASIC FAMIL Y Jun 24, 2009 112 [id number] [phone] ABHILASH GARAY PATIENT ANTHEM [place]BS [place] PREFERRED PROVIDER ORGANIZAT ION (PPO) FEP BASIC FAM Jun 24, 2009 112 [id number] [phone] ABHILASH GARAY PATIENT ANTHEM BCBS [place] FEP PREFERRED PROVIDER ORGANIZAT ION (PPO) FEP BASIC FAM Jun 24, 2009 112 [id number] [phone] ABHILASH GARAY PATIENT ANTHEM [place] FEP PREFERRED PROVIDER ORGANIZAT ION (PPO) FEP BASIC FAM Jun 24, 2009 112 [id number] [phone] ABHILASH GARAY PATIENT [place] FEP PREFERRED PROVIDER ORGANIZAT ION (PPO) FEP BASIC FAM Jun 24, 2009 112 [id number] [phone] RUBI GARAYNETH PATIENT BCBS [place] FEP PREFERRED PROVIDER ORGANIZAT ION (PPO) BASIC FAMIL Y Jun 24, 2009 112 [id number] [phone] RUBI GARAYNETH PATIENT [place] F[place] PREFERRED PROVIDER ORGANIZAT ION (PPO) BASIC FAMIL Y Jun 24, 2009 112 [id number] RUBI GARAYNETH PATIENT [place] F[place] PREFERRED PROVIDER ORGANIZAT ION (PPO) BASIC FAMIL Y Jun 24, 2009 112 [id number] RUBI GARAYNETH PATIENT [place] DENTAL DENTAL INSURANCE BASIC Jul 12, 2009 DENTAL [id number] [phone] DEJAHDANIKARUBI ACEVESNETH PATIENT [place] FEP PREFERRED PROVIDER ORGANIZAT ION (PPO) BASIC FAMIL Y Jun 24, 2009 [id number] ABHILASH GARAY PATIENT [place] FEP ([id number]) PRESCRIPT ION FEPRX Jun 24, 2009 [id number] [phone] ABHILASH GARAY PATIENT [place] FEP BCBS PRESCRIPT ION CAREM ARK FEPRX PLAN Nov 21, 2021 [id number] ABHILASH GARAY PATIENT [place] FEPRX PLAN PRESCRIPT ION CAREM ARK FEPRX Nov 21, 2021 [id number] ABHILASH GARAY PATIENT [place]-F [place] BCBS PRESCRIPT ION FEP CAREM ARK Nov 21, 2021 [id number] ABHILASH GARAY PATIENT [place] BCBS PRESCRIPT ION FEP Jun 23, 2010 [id number] RUBI GARAYNETH PATIENT MEDICARE ([facility]) MEDICARE () PART A Feb 22, 2020 PART A [id number] ABHILASH GARAY PATIENT MEDICARE (WNR) MEDICARE (M) PART A Feb 22, 2020 PART A [id number] [phone] ABHILASH GARAY PATIENT MEDICARE (WNR) MEDICARE (M) PART A Feb 22, 2020 PART A [id number] ABHILASH GARAY PATIENT MEDICARE (WNR) MEDICARE (M) PART A Feb 22, 2020 PART A [id number] ABHILASH GARAY PATIENT MEDICARE (WNR) MEDICARE (M) PART A Feb 22, 2020 PART A [id number] ABHILASH GARAY PATIENT Selected Encounter This section includes the information on record at [place] for the Encounter. Date/Time Encounter Type Encounter Description Reason Pro vider Source Feb 13, 2024 11:28 AM Outpatient Encounter ADMIN PAT ACTIVTIES (MASNONCT) [...] 19, 2024 01:00 PM AMBULATORY - [place]ICINE [place] [facility] [place] [facility] Feb 25, 2024 11:00 AM AMBULATORY - NONE [place] [facility] [place] [facility] Mar 04, 2024 01:00 PM AMBULATORY - [place]ICINE [place] [facility] [place] [facility] Mar 09, 2024 01:00 PM AMBULATORY - [place]ICINE [place] [facility] [place] [facility] Mar 11, 2024 11:00 AM AMBULATORY - [place]INE [place] [facility] [place] [facility] Mar 15, 2024 12:15 PM AMBULATORY - [place]INE [place] [facility] [place] [facility] Mar 25, 2024 01:00 PM AMBULATORY [place] [facility] [place] [facility] Apr 06, 2024 10:30 AM AMBULATORY - MEDICINE [facility] Apr 07, 2024 03:30 PM AMBULATORY - NONE [place] [facility] [place] [facility] Apr 08, 2024 01:00 PM AMBULATORY - [place]INE [place] [facility] [place] [facility] Apr 12, 2024 11:00 AM AMBULATORY [place] [facility] [place] [facility] Apr 15, 2024 10:00 AM AMBULATORY [place] [facility] [place] [facility] Apr 19, 2024 11:00 AM AMBULATORY [place] [facility] [place] [facility] Apr 22, 2024 09:00 AM AMBULATORY [place] [facility] [place] [facility] May 03, 2024 01:00 PM AMBULATORY [place] [facility] [place] [facility] May 17, 2024 01:00 PM [facility]ATORY [facility] May 28, 2024 07:30 AM AMBULATORY [place]ICINE [place] [facility] [facility] Jun 03, 2024 01:00 PM AMBULATORY - [place]INE [place] [facility] [place] [facility] Jun 08, 2024 03:00 PM AM[facility]ULATORY - [facility] Jun 11, 2024 08:00 AM AMBULATORY - MEDICINE [facility] Social History: Smoking [...] 08, 2023 09:12 AM VA-TOBACCO NEVER USED [facility] Tobacco Use History This section includes a history of the smoking, or tobacco-related health factors, that were collected on or before the date of the Encounter. The data comes from the [place] facility where the Encounter took place. Date/Time Smoking Status/Tobacco Use Comment Gilberto boston Aug 09, 2021 09:20 AM [place]-TOBACCO NEVER USED [facility] Encounter Notes: All associated encounter notes This section contains the clinical notes associated to the Encounter. Date/Time Encounter Note(s) Provider Source Feb 13, 2024 11:29 AM ADMINISTRATIVE NOT E: LOCAL TITLE: CCC: SCHEDULING ADMINISTRATION STANDARD TITLE: ADMINISTRATIVE NOTE DATE OF NOTE: FEB 13, 2024@11:29 ENTRY DATE: FEB 13, 2024@11:29:01 AUTHOR: NONI LAMBERT COSIGNER: URGENCY: STATUS: COMPLETED CCC: SCHEDULING ADMINISTRATION Has ADDENDA Patient Demographics Patient Name: ABHILASH GARAY Patient Primary Phone: [phone] Patient Primary [address]: [address] [place] [address] Patient : 1955 Patient Age: 68 Caller/Recipient Relation to Patient: Self Administrative Administrative Note Reason: Returned Call Administrative Note Comments: Pt called again. He has been trying for a couple weeks to get the Pain Clinic for his neuropathy. He would like a referral sent to the Pain Clinic at the [place]. Please call him to let him know that you received this note and have sent a referral over. Thank you. IMPORTANT: This note was created by [facility] Clinical Contact Center staff. Please do not alert the staff member by adding them as a signer for future communications. Alerts are not monitored by this user. /yunior/ NONI LAMBERT [facility] Signed: 02/13/2024 11:29 Receipt Acknowledged By: 02/17/2024 16:08 /yunior/ BREANNA BAKER RN-BC REGISTERED NURSE 02/19/2024 09:54 /yunior/ EUGENIE SALVADOR LPN Licensed Practical Nurse 02/25/2024 ADDENDUM STATUS: COMPLETED Consult for [facility] was previously entered and is in process and scheduling. /yunior/ BREANNA BAKER RN-BC REGISTERED NURSE Signed: 02/25/2024 12:11 NONI LAMBERT [place] [facility]
--- OUTSIDE RECORDS SUMMARY | 2024-06-29 19:03 | XMS_ITS ---
Author Name [facility] [place] Address [address] [place] [address] Care Team Providers Care Fish Protector Name Role Phone ABDIRAHMAN LAKE Primary Care [...] BASIC FAMIL Y Jun 24, 2009 112 [id number] [phone] ABHILASH GARAY PATIENT ANTHEM BCBS [place] F[place] PREFERRED PROVIDER ORGANIZAT ION (PPO) FEP BASIC FAM Jun 24, 2009 112 [id number] [phone] ABHILASH GARAY PATIENT ANTHEM BCBS [place] F[place] PREFERRED PROVIDER ORGANIZAT ION (PPO) FEP BASIC FAM Jun 24, 2009 112 [id number] [phone] ABHILASH GARAY PATIENT ANTHEM [place] F[place] PREFERRED PROVIDER ORGANIZAT ION (PPO) FEP BASIC FAM Jun 24, 2009 112 [id number] [phone] ABHILASH GARAY PATIENT [place] FEP PREFERRED PROVIDER ORGANIZAT ION (PPO) FEP BASIC FAM Jun 24, 2009 112 [id number] [phone] ABHILASH GARAY PATIENT BCBS [place] FEP PREFERRED PROVIDER ORGANIZAT ION (PPO) BASIC FAMIL Y Jun 24, 2009 112 [id number] ABHILASH GARAY PATIENT [place] PREFERRED PROVIDER ORGANIZAT ION (PPO) BASIC FAMIL Y Jun 24, 2009 112 [id number] ABHILASH GARAY PATIENT [place] F[place] PREFERRED PROVIDER ORGANIZAT ION (PPO) BASIC FAMIL Y Jun 24, 2009 112 [id number] [phone] ABHILASH GARAY PATIENT [place] FEP DENTAL DENTAL INSURANCE BASIC Jul 12, 2009 DENTAL [id number] ABHILASH GARAY PATIENT [place] FEP PREFERRED PROVIDER ORGANIZAT ION (PPO) BASIC FAMIL Y Jun 24, 2009 [id number] ABHILASH GARAY PATIENT [employer] FEP ([id number]) PRESCRIPT ION FEPRX Jun 24, 2009 [id number] [phone] ABHILASH GARAY PATIENT [employer] FEP BCBS PRESCRIPT ION CAREM ARK FEPRX PLAN Nov 21, 2021 [id number] ABHILASH GARAY PATIENT [employer] FEPRX PLAN PRESCRIPT ION CAREM ARK FEPRX Nov 21, 2021 [id number] ABHILASH GARAY PATIENT [employer]-F EP BCBS PRESCRIPT ION FEP CAREM ARK Nov 21, 2021 [id number] ABHILASH GARAY PATIENT [employer]-F EP BCBS PRESCRIPT ION FEP Jun 23, 2010 [id number] ABHILASH GARAY PATIENT MEDICARE (WN) MEDICARE () PART A Feb 22, 2020 PART A [id number] ABHILASH GARAY PATIENT MEDICARE ([facility]) MEDICARE () PART A Feb 22, 2020 PART A [id number] ABHILASH GARAY PATIENT MEDICARE (WNR) MEDICARE (M) PART A Feb 22, 2020 PART A [id number] ABHILASH GARAY PATIENT MEDICARE (WNR) MEDICARE (M) PART A Feb 22, 2020 PART A [id number] ABHILASH GARAY PATIENT MEDICARE (WNR) MEDICARE (M) PART A Feb 22, 2020 PART A [id number] ABHILASH GARAY PATIENT Selected Encounter This section includes the information on [place] at [place] for the Encounter. Date/Time Encounter Type Encounter Description Reason Pro vider Source Feb 25, 2024 11:27 AM Outpatient Encounter PRIMARY CARE/MEDICINE IHE Encounter [...] - MEDICINE [place] [facility] [place] [facility] Mar 09, 2024 01:00 PM AMBULATORY - MEDICINE [facility] [place] [facility] Mar 11, 2024 11:00 AM AMBULATORY - MEDICINE [place] [facility] [place] [facility] Mar 15, 2024 12:15 PM AMBULATORY - MEDICINE [place] [facility] [place] [facility] Mar 25, 2024 01:00 PM AMBULATORY - MEDICINE [place] [facility] [place] [facility] Apr 06, 2024 10:30 AM [facility] Apr 07, 2024 03:30 PM AMBULATORY - NONE [facility] [place] [facility] Apr 08, 2024 01:00 PM AMBULATORY - MEDICINE [place] [facility] [place] [facility] Apr 12, 2024 11:00 AM AMBULATORY - [place]ICINE [place] [facility] [facility] Apr 15, 2024 10:00 AM AMBULATORY - MEDICINE [facility] [place] [facility] Apr 19, 2024 11:00 AM AMBULATORY - MEDICINE [facility] [place] [facility] Apr 22, 2024 09:00 AM AMBULATORY - [place]ICINE [place] [facility] [place] [facility] May 03, 2024 01:00 PM AMBULATORY - MEDICINE [place] [facility] [place] [facility] May 17, 2024 01:00 PM AMBULATORY - [facility] May 28, 2024 07:30 AM AMBULATORY - MEDICINE [place] [facility] [facility] Jun 03, 2024 01:00 PM AMBULATORY - MEDICINE [place] [facility] [place] [facility] Jun 08, 2024 03:00 PM AMBULATORY - REHAB [facility] Jun 11, 2024 08:00 AM AMBULATORY - MEDICINE [facility] Jun 11, 2024 02:00 PM AMBULATORY - REHAB [facility] Jun 14, 2024 10:30 AM AMBULATORY - MEDICINE [place] [facility] [facility] Active, Pending, and Scheduled Orders This section includes a listing of several types of active, pending, and scheduled orders, including clinic medications orders, diagnostic test orders, procedure orders and consult orders; where the start date of the order is 45 days before the date of the Encounter or 45 days after the date of theEncounter. The data comes from all [place] treatment facilities. Test Date/Time Test Type Test Details Facility Name Apr 08, 2024 12:00 AM Laboratory - Chemistry Order URI NALYSIS URINE [facility] [place] Vital Signs: All taken on the encounter date This section contains inpatient and outpatient Vital Signs collected on the date of the Encounter. Date/Time Temperature Pulse Blood Pressure Respiratory Rate SP02 Pain Height Weight Body Mass Index Source Feb 25, 2024 11:00 AM 256.9 33 [place] [facility] [place] [facility] Social History: Smoking Status (Most [...] AM VA-TOBACCO NEVER USED [facility] Encounter Notes: All associated encounter notes This section contains the clinical notes associated to the Encounter. Date/Time Encounter Note(s) Provider Source Feb 25, 2024 05:05 PM ADDENDUM: LOCAL TITLE: Addendum STANDARD TITLE: ADDENDUM DATE OF NOTE: FEB 25, 2024@17:05:13 ENTRY DATE: FEB 25, 2024@17:05:14 AUTHOR: REG FISHER EXP COSIGNER: URGENCY: STATUS: COMPLETED Potasium citrate is still an active prescription. Please note he will require labs (Rolando's orders are active). /oriana FISHER MD PHYSICIAN Signed: 02/25/2024 17:07 Receipt Acknowledged By: 02/27/2024 15:25 /yunior/ BREANNA BAKER RN-BC REGISTERED NURSE --- Original Document --- 02/25/24 OUTPATIENT MEDICATION REQUEST: Please renew for mail POTASSIUM CITRATE (EQV-UROCIT K) TAB,SA 10MEQ TAKE TWO TABLETS BY MOUTH TWICE DAILY Quantity: 100 Refills: 1 Indication: KIDNEY STONES /BREANNA Gillespie RN-BC REGISTERED NURSE Signed: 02/25/2024 11:30 Receipt Acknowledged By: 02/25/2024 17:04 /oriana FISHER MD PHYSICIAN for REG [facility] [place] Feb 25, 2024 11:27 AM MEDICATION MGT NOT E: LOCAL TITLE: OUTPATIENT MEDICATION REQUEST STANDARD TITLE: MEDICATION MGT NOTE DATE OF NOTE: FEB 25, 2024@11:27 ENTRY DATE: FEB 25, 2024@11:27:24 AUTHOR: RADHIKA GOMEZ COSIGNER: URGENCY: STATUS: COMPLETED OUTPATIENT MEDICATION REQUEST Has ADDENDA Please renew for mail POTASSIUM CITRATE (EQV-UROCIT K) TAB,SA 10MEQ TAKE TWO TABLETS BY MOUTH TWICE DAILY Quantity: 100 Refills: 1 Indication: KIDNEY STONES /yunior/ BREANNA BAKER RN-BC REGISTERED NURSE Signed: 02/25/2024 11:30 Receipt Acknowledged By: 02/25/2024 17:04 /yunior/ REG FISHER MD PHYSICIAN for [place] 02/25/2024 ADDENDUM STATUS: COMPLETED Potasium citrate is still an active prescription. Please note he will require labs ([facility] orders are active). /yunior/ REG FISHER MD PHYSICIAN Signed: 02/25/2024 17:07 Receipt Acknowledged By: 02/27/2024 15:25 /yunior/ BREANNA BAKER RN-BC REGISTERED NURSE 02/27/2024 ADDENDUM STATUS: COMPLETED Called with message from covering provider noted above. advised that he plans to present to lab prior to next pcp appt in march. Florence also was advised that if he finds that he is in need of a short supply he can present to the pharmacy window to request bridge supply. Florence also expressed frustration related to appt notifications being received after an appt has already taken place and requested to speak with a capacity planning manager. Author sent email to Supervisory biomedical equipment support specialist to contact Florence. /BREANNA Gillespie RN-RONI REGISTERED NURSE Signed: 02/27/2024 15:34 RADHIKA GOMEZ
--- OUTSIDE RECORDS SUMMARY | 2024-06-29 19:03 | XMS_ITS | Encounter Summary ---
Author Name [facility] [place] Address [address] [place] [address] Care Team Providers Care Florist'S Decorator Name Role Phone ABDIRAHMAN LAKE Primary Care [...] BASIC FAMIL Y Jun 24, 2009 [id number] [phone] ABHILASH GARAY PATIENT ANTHEM BCBS [place] F[place] PREFERRED PROVIDER ORGANIZAT ION (PPO) FEP BASIC FAM Jun 24, 2009 112 [id number] [phone] ABHILASH GARAY PATIENT ANTHEM BCBS [place] F[place] PREFERRED PROVIDER ORGANIZAT ION (PPO) FEP BASIC FAM Jun 24, 2009 112 [id number] [phone] ABHILASH GARAY PATIENT [place]THE[place] PREFERRED PROVIDER ORGANIZAT ION (PPO) FEP BASIC FAM Jun 24, 2009 112 [id number] [phone] ABHILASH GARAY PATIENT [place] PREFERRED PROVIDER ORGANIZAT ION (PPO) FEP BASIC FAM Jun 24, 2009 112 [id number] [phone] RUBI GARAYNETH PATIENT [place]BS [place] F[place] PREFERRED PROVIDER ORGANIZAT ION (PPO) BASIC FAMIL Y Jun 24, 2009 112 [id number] [phone] ABHILASH GARAY PATIENT [place] PREFERRED PROVIDER ORGANIZAT ION (PPO) BASIC FAMIL Y Jun 24, 2009 112 [id number] [phone] ABHILASH GARAY PATIENT [place] F[place] PREFERRED PROVIDER ORGANIZAT ION (PPO) BASIC FAMIL Y Jun 24, 2009 112 [id number] [phone] RUBI GARAYNETH PATIENT [place] FEP DENTAL DENTAL INSURANCE BASIC Jul 12, 2009 DENTAL [id number] RUBI GARAYNETH PATIENT [place] FEP PREFERRED PROVIDER ORGANIZAT ION (PPO) BASIC FAMIL Y Jun 24, 2009 [id number] ABHILASH GARAY PATIENT [employer] FEP ([id number]) PRESCRIPT ION FEPRX Jun 24, 2009 [id number] [phone] ABHILASH GARAY PATIENT [employer] FEP BCBS PRESCRIPT ION CAREM ARK FEPRX PLAN Nov 21, 2021 [id number] ABHILASH GARAY PATIENT [employer] FEPRX PLAN PRESCRIPT ION CAREM ARK FEPRX Nov 21, 2021 [id number] ABHILASH GARAY PATIENT [employer]-F EP BCBS PRESCRIPT ION FEP CAREM ARK Nov 21, 2021 [id number] ABHILASH GARAY PATIENT [employer]-F EP BCBS PRESCRIPT ION FEP Jun 23, 2010 [id number] ABHILASH GARAY PATIENT MEDICARE (WN) MEDICARE (M) PART A Feb 22, 2020 PART A [id number] ABHILASH GARAY PATIENT MEDICARE ([facility]) MEDICARE (M) PART A Feb 22, 2020 PART A [id number] ABHILASH GARAY PATIENT MEDICARE (WNR) MEDICARE (M) PART A Feb 22, 2020 PART A [id number] ABHILASH GARAY PATIENT MEDICARE (WNR) MEDICARE (M) PART A Feb 22, 2020 PART A [id number] ABHILASH GARAY PATIENT MEDICARE (WNR) MEDICARE (M) PART A Feb 22, 2020 PART A [id number] ABHILASH GARAY PATIENT Selected Encounter This section includes the information on record at [place] for the Encounter. Date/Time Encounter Type Encounter Description Reason Provider Source Feb 19, 2024 09:54 AM PRO PHONE CALL 11-20 MIN TELEPHONE/ANCILLAR Y ICD-10-CM Z72.3 Lack of physical exercise [place] [facility] Encounter Template Text not used by [place] Assessments - Encounter Diagnoses This section includes the primary and secondary diagnoses documented for the Encounter. Date/Time Primary/Secondary Diagnosis Diagnosis Name Provider Source Feb 19, 2024 09:54 AM PRIMARY Lack of physical exercise [place] [facility] [place] [facility] [...] AMBULATORY - NONE [place] [facility] [place] [facility] Mar 04, 2024 01:00 PM AMBULATORY - MEDICINE [place] [facility] [place] [facility] Mar 09, 2024 01:00 PM AMBULATORY - MEDICINE [place] [facility] [facility] Mar 11, 2024 11:00 AM AMBULATORY - MEDICINE [place] [facility] [place] [facility] Mar 15, 2024 12:15 PM AMBULATORY - MEDICINE [place] [facility] [facility] Mar 25, 2024 01:00 PM AMBULATORY - MEDICINE [facility] [place] [facility] Apr 06, 2024 10:30 AM AMBULATORY - MEDICINE [place] Apr 07, 2024 03:30 PM AMBULATORY - NONE [place] [facility] [place] [facility] Apr 08, 2024 01:00 PM AMBULATORY - MEDICINE [facility] [facility] Apr 12, 2024 11:00 AM AMBULATORY - MEDICINE [facility] [facility] Apr 15, 2024 10:00 AM AMBULATORY - MEDICINE [facility] [facility] Apr 19, 2024 11:00 AM AMBULATORY - MEDICINE [facility] [facility] Apr 22, 2024 09:00 AM AMBULATORY - MEDICINE [facility] [place] [facility] May 03, 2024 01:00 PM AMBULATORY - MEDICINE [place] [facility] [place] [facility] May 17, 2024 01:00 PM AMBULATORY - REHAB MED[facility]IN [facility] May 28, 2024 07:30 AM AMBULATORY - MEDICINE [place] [facility] [place] [facility] Jun 03, 2024 01:00 PM AMBULATORY - MEDICINE [place] [facility] [place] [facility] Jun 08, 2024 03:00 PM AMBULATORY - REHAB [facility] Jun 11, 2024 08:00 AM AMBULATORY - MEDICINE [facility] Jun 11, 2024 02:00 PM AMBULATORY - REHAB [facility] Social History: Smoking Status (Most [...] 2023 09:12 AM [facility]CO [facility] Tobacco Use History This section includes a history of the smoking, or tobacco-related health factors, that were collected on or before the date of the Encounter. The data comes from the [place] facility where the Encounter took place. Date/Time Smoking Status/Tobacco Use Comment F acility Aug 09, 2021 09:20 AM VA-TOBACCO NEVER USED [facility] [place] [facility] Encounter Notes: All associated encounter notes This section contains the clinical notes associated to the Encounter. Date/Time Encounter Note(s) Provider Source Feb 19, 2024 09:54 AM GERIATRIC MEDICINE CONSULT: LOCAL TITLE: GEROFIT/NHM OUTPT STANDARD TITLE: GERIATRIC MEDICINE CONSULT DATE OF NOTE: FEB 19, 2024@09:54 ENTRY DATE: FEB 19, 2024@09:54:24 AUTHOR: [place] AND[place] EXP COSIGNER: URGENCY: STATUS: COMPLETED GEROFIT INTAKE CONSULT NOTE WEIGHT: Over weight Yes BMI: 32.9255.4 lb [115.85 kg] (12/22/2023 10:19) 74 in [188.0 cm] (12/29/2018 08:33) PROBLEM LIST: Active Problem CLBP - chronic low back [...] HARMON HYPERLIPIDEMIA NEC/NOS 272.4 11/26/2010 GREGG HARMON MEDICATIONS: Active Outpatient Medications (including Supplies): Active Outpatient Medications Status 1) ACETAMINOPHEN 500MG TAB TAKE ONE TABLET BY MOUTH ACTIVE THREE TIMES DAILY NEEDED FOR PAIN 2) ALLOPURINOL 100MG TAB TAKE ONE TABLET BY MOUTH ONCE ACTIVE DAILY FOR GOUT 3) ATORVASTATIN CALCIUM 10MG TAB TAKE ONE TABLET BY ACTIVE MOUTH AT BEDTIME FOR HIGH CHOLESTEROL 4) CAMPHOR/MENTHOL/METHYL SALICYLATE PATCH APPLY 1 PATCH ACTIVE TOPICALLY ONCE DAILY NEEDED FOR PAIN (REMOVE PATCH AFTER 8 TO 12 HOURS) 5) DILTIAZEM (EQV-CARDIZEM) 120MG 24HR CAP TAKE ONE ACTIVE CAPSULE BY MOUTH ONCE DAILY FOR HIGH BLOOD PRESSURE 6) KETOCONAZOLE 2% SHAMPOO SHAMPOO TO DAMP HAIR ACTIVE TOPICALLY DIRECTED BY PROVIDER LEAVE IN FOR 5 MINUTES AND RINSE OUT. USE WHEN SHAMPOOING 7) LEVOTHYROXINE NA (SYNTHROID) 125MCG TAB TAKE ONE ACTIVE (S) TABLET BY MOUTH EVERY MORNING 30 MINUTES BEFORE BREAKFAST FOR THYROID TAKE ON AN EMPTY STOMACH WITH A FULL GLASS OF WATER 8) METOPROLOL SUCCINATE 50MG SA TAB TAKE ONE TABLET BY ACTIVE MOUTH ONCE DAILY FOR BLOOD PRESSURE/HEART 9) POTASSIUM CITRATE 10MEQ SA TAB TAKE TWO TABLETS BY ACTIVE MOUTH TWICE DAILY 10) RIVAROXABAN 20MG TAB TAKE ONE TABLET BY MOUTH ONCE ACTIVE DAILY TO PREVENT BLOOD CLOTS (TAKE WITH FOOD) Active Non-VA Medications Status 1) Non-VA FISH OIL 500MG DHA/EPA CAP,ORAL BY MOUTH ACTIVE DAILY 2) Non-VA MULTIVITAMIN/MINERALS CAP/TAB 1 TABLET BY ACTIVE MOUTH EVERY DAY 3) Non-VA NIACIN TAB BY MOUTH ACTIVE 13 Total Medications EXERCISE: Current Exercise: 1) On average, how many days/week do you engage in at least moderate cardio exercise (brisk walk, riding a stationary bike, or using treadmill)? 0 number of days 1a) On average, how many minutes/day do you engage in exercise at this level? minutes 2) Are you currently doing any strengthening exercises (using weight machines, lifting free weights or doing push-ups or participating in strength-focused exercise classes)? No 2a) If yes, on average, how many days/week do you engage in strengthening exercises? number of days 2b) On average, how many minutes/day do you engage in exercise at this level? minutes Preferred exercise: Home Equipment: Exercise History: none ASSISTIVE DEVICES (check all that apply): Rollator Walker PATIENT-IDENTIFIED EXERCISE GOALS: 1) lose weight 2) improve back pain 3) strength improvement BARRIERS TO EXERCISE (check all that apply): Sedentary lifestyle, Physical (chronic illness), Pain EXERCISE INCENTIVES (check all that apply: Health care provider recommendation, Maintain independence SUMMARY OF CONSULT: Pt does yoga and is interested in working out in the fitness center. Is somewhat limited by low back pain and may need modifications due to this. Thank you for recommending this patient for the Gerofit program, and encouraging exercise to improve health. This patient is scheduled on 02/27/24 @ 1:00 /yunior/ [place] Andino PT,DPT PHYSICAL THERAPIST Signed: 02/19/2024 10:06 [place] AND[place] [facility]
--- OUTSIDE RECORDS SUMMARY | 2024-06-29 19:03 | XMS_ITS ---
OR MEDICAL NUTRITION INDIV IN [facility] Encounter Summary Created on: June 29, 2024 ABHILASH GARAY : 1955 Sex: Male Author Name [facility] Organization [facility] [place] Address [address] [place] [address] Care Team Providers Care Teacher Of The Sight Impaired Name Role Phone ABDIRAHMAN [place] Primary Care [...] BASIC FAMIL Y Jun 24, 2009 112 [id number] [phone] ABHILASH GARAY PATIENT [place]THE[place] PREFERRED PROVIDER ORGANIZAT ION (PPO) FEP BASIC FAM Jun 24, 2009 112 [id number] [phone] ABHILASH GARAY PATIENT ANTHEM BCBS [place] FEP PREFERRED PROVIDER ORGANIZAT ION (PPO) FEP BASIC FAM Jun 24, 2009 112 [id number] [phone] ABHILASH GARAY PATIENT ANTHEM [place] F[place] PREFERRED PROVIDER ORGANIZAT ION (PPO) FEP BASIC FAM Jun 24, 2009 112 [id number] [phone] ABHILASH GARAY PATIENT BC[place] FEP PREFERRED PROVIDER ORGANIZAT ION (PPO) FEP BASIC FAM Jun 24, 2009 112 [id number] [phone] ABHILASH GARAY PATIENT BCBS [place] FEP PREFERRED PROVIDER ORGANIZAT ION (PPO) BASIC FAMIL Y Jun 24, 2009 112 [id number] [phone] ABHILASH GARAY PATIENT [place] PREFERRED PROVIDER ORGANIZAT ION (PPO) BASIC FAMIL Y Jun 24, 2009 112 [id number] ABHILASH GARAY PATIENT [place] PREFERRED PROVIDER ORGANIZAT ION (PPO) BASIC FAMIL Y Jun 24, 2009 112 [id number] [phone] ABHILASH GARAY PATIENT [place] FEP DENTAL DENTAL INSURANCE BASIC Jul 12, 2009 DENTAL [id number] [phone] ABHILASH GARAY PATIENT [place] F[place] PREFERRED PROVIDER ORGANIZAT ION (PPO) BASIC FAMIL Y Jun 24, 2009 112 [id number] ABHILASH GARAY PATIENT [place] FEP ([id number]) PRESCRIPT ION FEPRX Jun 24, 2009 [id number] [phone] ABHILASH GARAY PATIENT [place] FEP BCBS PRESCRIPT ION CAREM ARK FEPRX PLAN Nov 21, 2021 [id number] ABHILASH GARAY PATIENT [employer] FEPRX PLAN PRESCRIPT ION CAREM ARK FEPRX Nov 21, 2021 [id number] ABHILASH GARAY PATIENT [place]-F EP BCBS PRESCRIPT ION FEP CAREM ARK Nov 21, 2021 [id number] ABHILASH GARAY PATIENT [place]-F EP BCBS PRESCRIPT ION FEP Jun 23, 2010 [id number] RUBI GARAYNETH PATIENT MEDICARE (WN) MEDICARE (M) PART A Feb 22, 2020 PART A [id number] RUBI GARAYNETH PATIENT MEDICARE (WN) MEDICARE (M) PART A Feb 22, 2020 PART A [id number] ABHILASH GARAY PATIENT MEDICARE (WNR) MEDICARE (M) PART A Feb 22, 2020 PART A [id number] ABHILASH GARAY PATIENT MEDICARE (WNR) MEDICARE (M) PART A Feb 22, 2020 PART A [id number] [id number] ABHILASH GARAY PATIENT MEDICARE (WNR) MEDICARE (M) PART A Feb 22, 2020 PART A [id number] ABHILASH GARAY PATIENT Selected Encounter This section includes the information on record at OR for the Encounter. Date/Time Encounter Type Encounter Description Reason Provider Source Feb 25, 2024 11:00 AM MEDICAL NUTRITION INDIV IN NUTRITION/DIETETIC S-INDIVIDUAL ICD-10-CM E66.09 Other obesity due to excess calories JESSICA ANDERSON [facility] Encounter Template Text not used by OR Assessments - Encounter Diagnoses This section includes the primary and secondary diagnoses documented for the Encounter. Date/Time Primary/Secondary Diagnosis Diagnosis Name Provider Source Mar 13, 2024 08:27 AM PRIMARY Other obesity due to excess calories JESSICA ANDERSON [facility] Mar 13, 2024 08:27 AM SECONDARY Body mass index [BMI] 32.0-32.9, adult JESSICA ANDERSON [facility] Mar 13, 2024 08:27 AM SECONDARY Dietary counseling and surveillance JESSICA ANDERSON [facility] Plan of Treatment: Future Appointments (+ 6 [...] 04, 2024 01:00 PM AMBULATORY - MEDICINE [place] [facility] [place] [facility] Mar 09, 2024 01:00 PM AMBULATORY - MEDICINE [place] [facility] [place] [facility] Mar 11, 2024 11:00 AM AMBULATORY - MEDICINE [place] [facility] [place] [facility] Mar 15, 2024 12:15 PM AMBULATORY - MEDICINE [facility] [place] [facility] Mar 25, 2024 01:00 PM AMBULATORY - MEDICINE [facility] [place] [facility] Apr 06, 2024 10:30 AM AMBULATORY - MEDICINE [facility] Apr 07, 2024 03:30 PM AMBULATORY - NONE [place] [facility] [place] [facility] Apr 08, 2024 01:00 PM AMBULATORY - MEDICINE [facility] [place] [facility] Apr 12, 2024 11:00 AM AMBULATORY - MEDICINE [place] [facility] [place] [facility] Apr 15, 2024 10:00 AM AMBULATORY - MEDICINE [place] [facility] [place] [facility] Apr 19, 2024 11:00 AM AMBULATORY - MEDICINE [place] [facility] [place] [facility] Apr 22, 2024 09:00 AM AMBULATORY - MEDICINE [facility] [place] [facility] May 03, 2024 01:00 PM AMBULATORY - MEDICINE [place] [facility] [place] [facility] May 17, 2024 01:00 PM AMBULATORY - REHAB MEDICIN [facility] May 28, 2024 07:30 AM AMBULATORY - MEDICINE [place] [facility] [place] [facility] Jun 03, 2024 01:00 PM AMBULATORY - MEDICINE [place] [facility] [place] [facility] Jun 08, 2024 03:00 PM AMBULATORY - REHAB MEDICIN [facility] Jun 11, 2024 08:00 AM AMBULATORY - MEDICINE [facility] Jun 11, 2024 02:00 PM AMBULATORY - REHAB MEDICIN [facility] Jun 14, 2024 10:30 AM AMBULATORY - MEDICINE [place] [facility] [place] [facility] Active, Pending, and Scheduled Orders This section includes a listing of several types of active, pending, and scheduled orders, including clinic medications orders, diagnostic test orders, procedure orders and consult orders; where the start date of the order is 45 days before the date of the Encounter or 45 days after the date of theEncounter. The data comes from all [place] treatment facilities. Test Date/Time Test Type Test Details Facility Name Apr 08, 2024 12:00 AM Laboratory - Chemistry Order URI NALYSIS URINE SP [facility] Social History: Smoking Status (Most current) and Tobacco Use (All prior to encounter date) This section includes the most current, and the historical, smoking and tobacco- related health factors from the [facility] where the Encounter took place. Current Smoking Status This section includes the most current smoking, or tobacco-related health factor, from the [facility] where the Encounter took place. Date/Time Current Smoking Status Comment Odalis casey Aug 18, 2020 10:00 AM OR-TOBACCO NEVER USED [facility] Tobacco Use History This section includes a history of the smoking, or tobacco-related health factors, that were collected on or before the date of the Encounter. The data comes from the [facility] where the Encounter took place. Date/Time Smoking Status/Tobacco Use Comment F acility Dec 15, 2018 12:14 PM OR-TOBACCO NEVER USED [facility] Jun 11, 2017 04:15 PM LIFETIME NON-TOBACCO USER [facility] Jan 01, 2016 11:12 AM LIFETIME NON-TOBACCO USER [facility] Jan 16, 2005 08:54 AM LIFETIME NON-SMOKER [facility] Nov 29, 2003 08:05 AM LIFETIME NON-SMOKER [facility] Jan 07, 2001 08:33 AM LIFETIME NON-SMOKER [facility] Encounter Notes: All associated encounter notes This section contains the clinical notes associated to the Encounter. Date/Time Encounter Note(s) Provider Source Feb 25, 2024 11:00 AM NUTRITION DIETETIC S CONSULT: LOCAL TITLE: CONSULT REPORT/NUTRITION AND SPECIAL EDUCATION EDUCATIONAL ASSISTANT STANDARD TITLE: NUTRITION DIETETICS CONSULT DATE OF NOTE: FEB 25, 2024@11:00 ENTRY DATE: FEB 27, 2024@10:17:52 AUTHOR: CARLOS ANDERSON COSIGNER: URGENCY: STATUS: COMPLETED NUTRITION ASSESSMENT Reason for Nutrition referral: Obesity Explained to patient that overweight in abdominal area could contribute to low back pain. Primary Diagnosis: Other Obesity due to excess calories (E66.09) Secondary Diagnosis: Dietary Surveillance and Counseling (Z71.3) Date of Nutrition Visit: Feb Visit #: 1 Time Spent with Patient: 40 minutes Patient identified using the following two forms of ID: Date of , Patient Full Name NUTRITION ASSESSMENT: Client History Medication List Reviewed Food/Drug Interactions: Atorvastatin/Grapefruit Nutritional/Herbal Supplements: yes Fish oil Food Allergies:no Problem List Reviewed: yes Anthropometric Measurements: ==== Ht:74 in [188.0 cm] (12/29/2018 08:33) Wt:256.9 lb [116.53 kg] (02/25/2024 11:00) Weight History: Opal notes his weight is at his highest weight. BMI: 33.1 IBW: 190 lb Biochemical Data/Medical Tests: ======= Labs: LIPID PANEL TREND Collection DT Spec CHOL HDL CHO/HDL LDL-c TRIG 04/02/2023 10:30 SERUM 166 42 4.0 109 73 HEMOGLOBIN A1C; BLOOD Rosalio. Date: 04/02/23 10:30 Test Name Result Units Range HEMOGLOBIN A1C 5.2 % 4.0 - 5.6 Other Labs: Collection DT Spec GLUCOSE BUN CREATIN Sodium K+/Pot CL CO2 04/02/2023 10:30 SERUM 100 16 0.89 141 4.3 108 25 eGFR CKD-EPI 202004/02/23 10:30 >90 SERUM BP: 138/76 (12/22/2023 10:19) Nutrition Focused Physical Findings: Appetite: Good Other issues/concerns: None Nutrition-Focused Physical Exam ======= A selection MUST be made in The Nutrition-Focused Physical Exam Summary section Signs of Obesity Body habitus: Gynoid Obesity Nutrition-Focused Physical Exam Summary: Based on the ASPEN/AND Malnutrition Diagnosis Guide, it was determined that the DOES NOT have malnutrition. Nutrition History: Food/Nutrition Related History: Met with who is concerned about his weight. does the cooking and shopping. Eats out almost daily. Eats 2 meals per day. Mainly drinks lemon water. He notes he eats too much and snacks often. 24 hour recall: B: bagel with salmon cream cheese, decaf coffee D: [employer], chicken parm, pasta, bread, popcorn, snacks: ice cream In the past 3 months, did you ever run out of food and you were not able to access more food or have the money to buy more food? No Physical Activity: mainly sedentary NUTRITION DIAGNOSIS = Nutrition Problem: NEW Obesity related to excess energy intake, physical inactivity, as evidenced by BMI=30-34.9. INTERVENTION NUTRITION COUNSELING Nutrition counseling based on motivational interviewing strategy , Nutrition counseling based on goal setting strategy , Nutrition counseling based on self monitoring strategy NUTRITION EDUCATION Content related to nutrition education, Education on nutrition's influence on health, Physical activity guidance Nutrition Education provided on the following topics: Healthy Meal Planning, Healthy Weight Loss Strategies, Potential Benefits of Weight Loss, Physical Activity (potential benefits) Printed Nutrition educational materials provided during this encounter: [employer] ( Green/Yellow/Red ) Education Narrative: Discussed MOVE group and he would like to join the face 2 face group in June. Barriers to Education: None Comprehension: Good Motivation: Good COORDINATION OF NUTRITION CARE Follow-up with: PCP, MOVE! program MONITORING Patient goals: 1. Start the MOVE group in June. 2. Decrease frequency of eating out. FOLLOW-UP PLAN 1. Follow-up visit: via MOVE group 2. Monitor progress toward achievement of Nutrition Intervention Goals 3. Assess comprehension and motivation based on dietary changes made 4. Monitor progress toward achievement of Clinical Outcome Goals: Weight, Labs CLINICAL OUTCOME GOALS: Indicator: Weight Criteria: Obese per BMI Goal: Weight loss of 1-2/#/week toward IBW by follow-up Progress: TBD at follow-up WHOLE HEALTH WHOLE HEALTH EDUCATION Whole Health Education was provided. /yunior/ CARLOS ANDERSON STAFF DIETITIAN Signed: 02/27/2024 11:16 CARLOS ANDERSON [facility] [place] [facility]
--- OUTSIDE RECORDS SUMMARY | 2024-06-29 19:03 | XMS_ITS | Encounter Summary ---
Author Name [facility] [place] Organization [facility] [place] [facility] [place] Address [address] [place] [address] Care Team Providers Care Bellman Driver Name Role Phone ABDIRAHMAN [place] Primary [...] BASIC FAMIL Y Jun 24, 2009 [id number] [phone] ABHILASH GARAY PATIENT ANTHEM [place] F[place] PREFERRED PROVIDER ORGANIZAT ION (PPO) FEP BASIC FAM Jun 24, 2009 112 [id number] [phone] ABHILASH GARAY PATIENT ANTHEM BCBS [place] F[place] PREFERRED PROVIDER ORGANIZAT ION (PPO) FEP BASIC FAM Jun 24, 2009 112 [id number] [phone] ABHILASH GARAY PATIENT [place] PREFERRED PROVIDER ORGANIZAT ION (PPO) FEP BASIC FAM Jun 24, 2009 112 [id number] [phone] ABHILASH GARAY PATIENT [place] PREFERRED PROVIDER ORGANIZAT ION (PPO) FEP BASIC FAM Jun 24, 2009 112 [id number] [phone] ABHILASH GARAY PATIENT [place] PREFERRED PROVIDER ORGANIZAT ION (PPO) BASIC FAMIL Y Jun 24, 2009 [id number] ABHILASH GARAY PATIENT [place] PREFERRED PROVIDER ORGANIZAT ION (PPO) BASIC FAMIL Y Jun 24, 2009 112 [id number] [phone] ABHILASH GARAY PATIENT [place] PREFERRED PROVIDER ORGANIZAT ION (PPO) BASIC FAMIL Y Jun 24, 2009 [id number] ABHILASH GARAY PATIENT [place] F[place] DENTAL DENTAL INSURANCE BASIC Jul 12, 2009 DENTAL [id number] ABHILASH GARAY PATIENT [place] PREFERRED PROVIDER ORGANIZAT ION (PPO) BASIC FAMIL Y Jun 24, 2009 [id number] ABHILASH GARAY PATIENT [employer] FEP ([id number]) PRESCRIPT ION FEPRX Jun 24, 2009 [id number] [phone] ABHILASH GARAY PATIENT [place] FEP BCBS PRESCRIPT ION CAREM ARK FEPRX PLAN Nov 21, 2021 [id number] ABHILASH GARAY PATIENT [employer] FEPRX PLAN PRESCRIPT ION CAR[place] FEPRX Nov 21, 2021 [id number] ABHILASH GARAY PATIENT [employer]-F EP BCBS PRESCRIPT ION FEP CAR[place] Nov 21, 2021 [id number] ABHILASH GARAY PATIENT [place]-F EP BCBS PRESCRIPT ION FEP Jun 23, 2010 [id number] RUBI GARAYNETH PATIENT MEDICARE (WN) MEDICARE () PART A Feb 22, 2020 PART A [id number] [phone] ABHILASH GARAY PATIENT MEDICARE (WN) MEDICARE () PART A Feb 22, 2020 PART A [id number] ABHILASH GARAY PATIENT MEDICARE (WNR) MEDICARE (M) PART A Feb 22, 2020 PART A [id number] [phone] ABHILASH GARAY PATIENT MEDICARE (WNR) MEDICARE (M) PART A Feb 22, 2020 PART A [id number] [phone] ABHILASH GARAY PATIENT MEDICARE (WNR) MEDICARE (M) PART A Feb 22, 2020 PART A [id number] ABHILASH GARAY PATIENT Selected Encounter This section includes the information on record at [place] for the Encounter. Date/Time Encounter Type Encounter Description Reason Pro vider Source Feb 20, 2024 12:00 PM Outpatient Encounter [facility] Encounter Template Text not used by [...] 25, 2024 11:00 AM AMBULATORY - NONE [place] [facility] [place] [facility] Mar 04, 2024 01:00 PM AMBULATORY - MEDICINE [place] [facility] [place] [facility] Mar 09, 2024 01:00 PM AMBULATORY - MEDICINE [place] [facility] [place] [facility] Mar 11, 2024 11:00 AM AMBULATORY - MEDICINE [place] [facility] [place] [facility] Mar 15, 2024 12:15 PM AMBULATORY - MEDICINE [place] [facility] [place] [facility] Mar 25, 2024 01:00 PM AMBULATORY - MEDICINE [facility] [place] [facility] Apr 06, 2024 10:30 AM AMBULATORY - MEDICINE [facility] Apr 07, 2024 03:30 PM AMBULATORY - NONE [place] [facility] [place] [facility] Apr 08, 2024 01:00 PM AMBULATORY - MEDICINE [place] [facility] [place] [facility] Apr 12, 2024 11:00 AM AMBULATORY - MEDICINE [place] [facility] [place] [facility] Apr 15, 2024 10:00 AM AMBULATORY - MEDICINE [place] [facility] [place] [facility] Apr 19, 2024 11:00 AM AMBULATORY - MEDICINE [place] [facility] [place] [facility] Apr 22, 2024 09:00 AM AMBULATORY - MEDICINE [facility] [place] [facility] May 03, 2024 01:00 PM AMBULATORY - MEDICINE [place] [facility] [place] [facility] May 17, 2024 01:00 PM AMBULATORY - REHAB [facility] May 28, 2024 07:30 AM AMBULATORY - MEDICINE [place] [facility] [place] [facility] Jun 03, 2024 01:00 PM AMBULATORY - MEDICINE [place] [facility] [place] [facility] Jun 08, 2024 03:00 PM AMBULATORY - REHAB [facility] Jun 11, 2024 08:00 AM AMBULATORY - MEDICINE [facility] Jun 11, 2024 02:00 PM AMBULATORY - REHAB [facility] Social History: Smoking Status (Most [...] 09:20 AM VA-TOBACCO NEVER USED [facility] Encounter Notes: All associated encounter notes This section contains the clinical notes associated to the Encounter. Date/Time Encounter Note(s) Provider Source Feb 20, 2024 12:00 PM ADMINISTRATIVE NOTE: LOCAL TITLE: ADMINISTRATIVE NOTE STANDARD TITLE: ADMINISTRATIVE NOTE DATE OF NOTE: FEB 20, 2024@12:00 ENTRY DATE: FEB 20, 2024@12:00:55 AUTHOR: PURVI KIRBY EXP COSIGNER: URGENCY: STATUS: COMPLETED ADMINISTRATIVE NOTE Has ADD[place]DA [place] leaving message on [facility] Call Center voicemail wanting to: [] Speak to provider (name): Concern: [xx] Schedule/ reschedule appointment [] Cancelling an existing appt. [] Other: Clinic: ([facility]) [xx] Pain clinic(s) calling Triage who then called [facility] ext[facility] to leave message also having called [facility] ext[facility] but not having left message (Name showing up several at least 2x on [employer] call list, today] Please call to schedule new referral to Pain Clinic: Notation on bottom of consult states schedule w/ Dr. Sabillon Caller [xx] would like [] does not need [] did not specify if they wanted a call back regarding this matter. C/B phone number: [phone] Confirmed as phone contact on file in [facility]: /yunior/ AARON SURESH PHYSICAL THERAPIST Signed: 02/20/2024 12:05 Receipt Acknowledged By: 02/20/2024 15:09 /oriana ALEXANDRA ADVANCED PLUG ASSEMBLER 02/20/2024 13:26 /yunior/ CATHIE MONROY ADVANCED PLUG ASSEMBLER 02/20/2024 ADDENDUM STATUS: COMPLETED Appt scheduled with vet. /oriana MONROY ADVANCED PLUG ASSEMBLER Signed: 02/20/2024 13:26 PURVI KIRBY [place] [facility]
--- OUTSIDE RECORDS SUMMARY | 2024-06-29 19:04 | XMS_ITS | Encounter Summary ---
Author Name [facility] [place] Address [address] [place] [address] Care Team Providers Care Passenger Vessel Chef Name Role Phone ABDIRAHMAN LAKE Primary Care [...] BASIC FAMIL Y Jun 24, 2009 [id number] [phone] ABHILASH GARAY PATIENT ANTHEM BCBS [place] FEP PREFERRED PROVIDER ORGANIZAT ION (PPO) FEP BASIC FAM Jun 24, 2009 112 [id number] [phone] ABHILASH GARAY PATIENT ANTHEM BCBS [place] FEP PREFERRED PROVIDER ORGANIZAT ION (PPO) FEP BASIC FAM Jun 24, 2009 112 [id number] [phone] ABHILASH GARAY PATIENT ANTHEM [place] FEP PREFERRED PROVIDER ORGANIZAT ION (PPO) FEP BASIC FAM Jun 24, 2009 112 [id number] [phone] ABHILASH GARAY PATIENT [place]BS [place] FEP PREFERRED PROVIDER ORGANIZAT ION (PPO) FEP BASIC FAM Jun 24, 2009 112 [id number] [phone] ABHILASH GARAY PATIENT BCBS [place] FEP PREFERRED PROVIDER ORGANIZAT ION (PPO) BASIC FAMIL Y Jun 24, 2009 [id number] ABHILASH GARAY PATIENT [place] PREFERRED PROVIDER ORGANIZAT ION (PPO) BASIC FAMIL Y Jun 24, 2009 112 [id number] [phone] ABHILASH GARAY PATIENT [place] FEP PREFERRED PROVIDER ORGANIZAT ION (PPO) BASIC FAMIL Y Jun 24, 2009 112 [id number] ABHILASH GARAY PATIENT [place] FEP DENTAL DENTAL INSURANCE BASIC Jul 12, 2009 DENTAL [id number] [phone] ABHILASH GARYA PATIENT [place] FEP PREFERRED PROVIDER ORGANIZAT ION (PPO) BASIC FAMIL Y Jun 24, 2009 [id number] ABHILASH GARAY PATIENT [place] FEP ([id number]) PRESCRIPT ION FEPRX Jun 24, 2009 [id number] [phone] ABHILASH GARAY PATIENT [place] FEP BCBS PRESCRIPT ION CAREM ARK FEPRX PLAN Nov 21, 2021 [id number] ABHILASH GARAY PATIENT [place] FEPRX PLAN PRESCRIPT ION CAREM ARK FEPRX Nov 21, 2021 [id number] ABHILASH GARAY PATIENT [place]-F EP BCBS PRESCRIPT ION FEP CAREM ARK Nov 21, 2021 [id number] ABHILASH GARAY PATIENT [place]-F EP BCBS PRESCRIPT ION FEP Jun 23, 2010 [id number] ABHILASH GARAY PATIENT MEDICARE (WN) MEDICARE () PART A Feb 22, 2020 PART A [id number] ABHILASH GARAY PATIENT MEDICARE ([place]) MEDICARE () PART A Feb 22, 2020 PART A [id number] ABHILASH GARAY PATIENT MEDICARE (WNR) MEDICARE (M) PART A Feb 22, 2020 PART A [id number] ABHILASH GARAY PATIENT MEDICARE (WNR) MEDICARE (M) PART A Feb 22, 2020 PART A [id number] ABHILASH GARAY PATIENT MEDICARE (WNR) MEDICARE (M) PART A Feb 22, 2020 PART A [id number] ABHILASH GARAY PATIENT Selected Encounter This section includes the information on record at [place] for the Encounter. Date/Time Encounter Type Encounter Description Reason Provider Source Mar 04, 2024 01:00 PM STRESS MGMT CLASS HEALTH/WELLBEING SRVS ICD-10-CM Y93.42 Activity, PAT Yoder IHFran Encounter Template Text not used by [place] Assessments - Encounter Diagnoses This section includes the primary and secondary diagnoses documented for the Encounter. Date/Time Primary/Secondary Diagnosis Diagnosis Name Provider Source Mar 05, 2024 09:38 AM PRIMARY Activity, PEDRO Yoder [facility] [place] [facility] Plan of Treatment: Future Appointments (+ [...] Appointment Type Appointme nt Facility Name Mar 09, 2024 01:00 PM AMBULATORY [place]ICINE [place] [facility] [facility] Mar 11, 2024 11:00 AM AM[place]ULATORY [place]ICINE [place] [facility] Mar 15, 2024 12:15 PM AM[place]ATORY [place]ICINE [place] [facility] [facility] Mar 25, 2024 01:00 PM AM[place]ATORY [place]ICINE [place] [facility] [place] [facility] Apr 06, 2024 10:30 AM [facility] Apr 07, 2024 03:30 PM AMBULATORY - NONE [facility] [place] [facility] Apr 08, 2024 01:00 PM AMBULATORY - MEDICINE [place] [facility] [place] [facility] Apr 12, 2024 11:00 AM AMBULATORY - MEDICINE [place] [facility] [place] [facility] Apr 15, 2024 10:00 AM AMBULATORY - MEDICINE [place] [facility] [place] [facility] Apr 19, 2024 11:00 AM AMBULATORY - MEDICINE [place] [facility] [place] [facility] Apr 22, 2024 09:00 AM AMBULATORY - MEDICINE [place] [facility] [place] [facility] May 03, 2024 01:00 PM AMBULATORY - MEDICINE [place] [facility] [place] [facility] May 17, 2024 01:00 PM AMBULATORY - REHAB [facility]ICIN [place] May 28, 2024 07:30 AM AMBULATORY [place]ICINE [place] [facility] Jun 03, 2024 01:00 PM AMBULATORY [place]ICINE [place] [facility] Jun 08, 2024 03:00 PM AMBULATORY - REHAB [facility]ICIN [facility] [place] Jun 11, 2024 08:00 AM AMBULATORY - MEDICINE [facility] Jun 11, 2024 02:00 PM AMBULATORY - REHAB [facility] Jun 14, 2024 10:30 AM AMBULATORY - [place]ICINE [place] [facility] Jun 15, 2024 10:00 AM [facility] Active, Pending, and Scheduled Orders This section includes a listing of several types of active, pending, and scheduled orders, including clinic medications orders, diagnostic test orders, procedure orders and consult orders; where the start date of the order is 45 days before the date of the Encounter or 45 days after the date of theEncounter. The data comes from all [place] treatment facilities. Test Date/Time Test Type Test Details Facility Name Apr 08, 2024 12:00 AM Laboratory - Chemistry Order URINALYSIS URINE SP [place] Apr 15, 2024 03:06 PM Consult Order COMMUNITY CARE-NEUROLOGY Cons Home Health Care Social Worker's Choice [place] [facility] [place] [facility] Lab Results: +/- 30 days of the encounter This section includes the Chemistry and Hematology Lab Results on record with [facility] for the patient. Radiology Reports and Pathology Reports are provided separately, in subsequent sections. Lab Results This section contains the Chemistry/Hematology Results that were resulted 30 days before or 30 daysafter the date of the Encounter. Date/Time Source Result Type Result - Unit Interpretation Reference Range Comment Mar 31, 2024 09:16 AM [place] HEMOGLOBIN A1C PANEL Specimen Type: BLOOD Comment: [...] Apr 08, 2023 02:27 PM Reporting [facility]: [facility] [address] [address] Performing Lab: [address] [address] HEMOGLOBIN A1C 5.2 4.0-5.6 Mar 31, 2024 09:16 AM [place] TSH Specimen Type: SERUM No comment entered. Ordering Provider: GRGEG HARMON Report Released Date/Time: Apr 08, 2023 02:27 PM Reporting Lab: [facility] [address] [address] Performing Lab: [facility] [address] [address] TSH 2.67 u[IU]/mL 0.35-5.00 Mar 31, 2024 09:16 AM [place] LIPID PANEL FASTING Specimen Type: SERUM No comment entered. Ordering Provider: GREGG HARMON Report Released Date/Time: Apr 08, 2023 02:27 PM Reporting Lab: [address] [address] Performing Lab: [address] [address] CHOLESTEROL 164 mg/dL TRIGLYCERIDE 102 mg/dL 0-150 LDL calculated 101 mg/dL 0-129 CHOL/HDL 3.8 HDL CHOLESTEROL 43 mg/dL 40-60 Mar 31, 2024 09:16 AM [place] BASIC METABOLIC PANEL (fasting) Specime n Type: SERUM No comment entered. Ordering Provider: GREGG HARMON Report Released Date/Time: Apr 08, 2023 02:27 PM Reporting Lab: [address] [address] Performing Lab: [address] [address] UREA NITROGEN 20 mg/dL 7-25 GLUCOSE 100 mg/dL 65-100 SODIUM 140 mmol/L 135-145 POTASSIUM 4.2 mmol/L 3.5-5.0 CHLORIDE 109 mmol/L 100-110 CO2 23 meq/L 20-30 CREATININE, Serum 0.96 mg/dL 0.50-1.40 eGFR(CKD-EPI 2020) 86 mL/min >60 Mar 31, 2024 09:16 AM [place] LIVER FUNCTION Specimen Type: SERUM No comment entered. Ordering Provider: GREGG HARMON Report Released Date/Time: Apr 08, 2023 02:27 PM Reporting Lab: [address] [address] Performing Lab: [address] [address] PROTEIN,TOTAL 6.0 g/dL 6.0-8.3 ALBUMIN 3.5 g/dL 3.5-5.0 ALKALINE PHOSPHATASE 70 U/L 40-150 AST 14 U/L 5-34 ALT 20 U/L BILIRUBIN, TOTAL 1.0 mg/dL 0.2-1.2 Mar 31, 2024 09:16 AM [place] CBC AND DIFF (AUTO) Specimen Type: BLOOD No comment entered. Ordering Provider: GREGG HARMON Report Released Date/Time: Apr 08, 2023 02:27 PM Reporting Lab: [address] [address] Performing Lab: [address] [address] WBC 4.01 10*3/uL L 4.50-11.00 RBC 4.67 [...] 2023 09:12 AM VA-TOBACCO NEVER USED [facility] Tobacco Use History This section includes a history of the smoking, or tobacco-related health factors, that were collected on or before the date of the Encounter. The data comes from the [place] facility where the Encounter took place. Date/Time Smoking Status/Tobacco Use Comment F darvin Aug 09, 2021 09:20 AM VA-TOBACCO NEVER USED [facility] Encounter Notes: All associated encounter notes This section contains the clinical notes associated to the Encounter. Date/Time Encounter Note(s) Provider Source Mar 04, 2024 01:00 PM RECREATIONAL THERA PY NOTE: LOCAL TITLE: [place] WELLBEING STANDARD TITLE: RECREATIONAL THERAPY NOTE DATE OF NOTE: MAR 04, 2024@13:00 ENTRY DATE: MAR 05, 2024@09:38:01 AUTHOR: MARY KATE MOORE COSIGNER: URGENCY: STATUS: [...] tree, triangle pose, wide leg forward bend, Orlando 2, Extended Side Angle Pose, Intense Side Stretch, [place] 1, plank, cobra, locust, downward facing dog, wisdom pose, contralateral limb raises, head to knee pose, bridge, reclined twist, and knees to chest; Systematic Relaxation; and Gratitude. Modifications were geared toward the [place]'s individual needs and preferences. 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 He fully participated, practicing all the postures offered. He used a chair, yoga blocks, and a yoga belt for support as needed and modified his postures according to his needs. [place] will return to class next week. /yunior/ NINO IBANEZ-500 Site Engineer Signed: 03/05/2024 09:44 MARY KATE MOORE [place] [facility]
--- OUTSIDE RECORDS SUMMARY | 2024-06-29 19:04 | XMS_ITS ---
Author Name [facility] [place] [facility] [place] [facility] [place] Address [address] [place] [address] Care Team Providers Care Injury Prevention Coordinator Name Role Phone ABDIRAHMAN LAKE Primary [...] BASIC FAMIL Y Jun 24, 2009 [id number] [phone] ABHILASH GARAY PATIENT ANTHEM BCBS [place] FEP PREFERRED PROVIDER ORGANIZAT ION (PPO) FEP BASIC FAM Jun 24, 2009 112 [id number] [phone] ABHILASH GARAY PATIENT ANTHEM BCBS [place] FEP PREFERRED PROVIDER ORGANIZAT ION (PPO) FEP BASIC FAM Jun 24, 2009 112 [id number] [phone] ABHILASH GARAY PATIENT ANTHEM [place] PREFERRED PROVIDER ORGANIZAT ION (PPO) FEP BASIC FAM Jun 24, 2009 [id number] [phone] ABHILASH GARAY PATIENT [place] PREFERRED PROVIDER ORGANIZAT ION (PPO) FEP BASIC FAM Jun 24, 2009 [id number] [phone] ABHILASH GARAY PATIENT [place]BS [place] FEP PREFERRED PROVIDER ORGANIZAT ION (PPO) BASIC FAMIL Y Jun 24, 2009 [id number] ABHILASH GARAY PATIENT [place] FEP PREFERRED PROVIDER ORGANIZAT ION (PPO) BASIC FAMIL Y Jun 24, 2009 [id number] ABHILASH GARAY PATIENT [place] FEP PREFERRED PROVIDER ORGANIZAT ION (PPO) BASIC FAMIL Y Jun 24, 2009 [id number] ABHILASH GARAY PATIENT [place] FEP DENTAL DENTAL INSURANCE BASIC Jul 12, 2009 DENTAL [id number] ABHILASH GARAY PATIENT [place] FEP PREFERRED PROVIDER ORGANIZAT ION (PPO) BASIC FAMIL Y Jun 24, 2009 [id number] ABHILASH GARAY PATIENT [place] FEP ([id number]) PRESCRIPT ION FEPRX Jun 24, 2009 [id number] [phone] ABHILASH GARAY PATIENT [place] FEP BCBS PRESCRIPT ION CAREM ARK FEPRX PLAN Nov 21, 2021 [id number] ABHILASH GARAY PATIENT [place] FEPRX PLAN PRESCRIPT ION CAREM ARK FEPRX Nov 21, 2021 [id number] ABHILASH GARAY PATIENT [place]-F EP BCBS PRESCRIPT ION FEP CAREM ARK Nov 21, 2021 [id number] ABHILASH GARAY PATIENT [place]-F EP BCBS PRESCRIPT ION FEP Jun 23, 2010 [id number] ABHILASH GARAY PATIENT MEDICARE (WN) MEDICARE () PART A Feb 22, 2020 PART A [id number] ABHILASH GARAY PATIENT MEDICARE ([facility]) MEDICARE () PART A Feb 22, 2020 PART A [id number] [phone] ABHILASH GARAY PATIENT MEDICARE (WNR) MEDICARE (M) PART A Feb 22, 2020 PART A [id number] [phone] ABHILASH GARAY PATIENT MEDICARE (WNR) MEDICARE (M) PART A Feb 22, 2020 PART A [id number] ABHILASH GARAY PATIENT MEDICARE (WNR) MEDICARE (M) PART A Feb 22, 2020 PART A [id number] ABHILASH GARAY PATIENT Selected Encounter This section includes the information on record at [place] for the Encounter. Date/Time Encounter Type Encounter Description Reason Pro vider Source Mar 02, 2024 09:46 AM Outpatient Encounter PRIMARY CARE/MEDICINE IHE Encounter [...] - MEDICINE [place] [facility] [place] [facility] Mar 09, 2024 01:00 PM AMBULATORY - MEDICINE [place] [facility] [place] [facility] Mar 11, 2024 11:00 AM AMBULATORY - MEDICINE [place] [facility] [place] [facility] Mar 15, 2024 12:15 PM AMBULATORY - MEDICINE [place] [facility] [place] [facility] Mar 25, 2024 01:00 PM AMBULATORY - MEDICINE [place] [facility] [place] [facility] Apr 06, 2024 10:30 AM [facility] Apr 07, 2024 03:30 PM AMBULATORY - NONE [place] [facility] [facility] Apr 08, 2024 01:00 PM AMBULATORY - MEDICINE [place] [facility] [place] [facility] Apr 12, 2024 11:00 AM AMBULATORY - MEDICINE [place] C [facility] [facility] Apr 15, 2024 10:00 AM AMBULATORY - MEDICINE [place] C [facility] [place] [facility] Apr 19, 2024 11:00 AM AMBULATORY - MEDICINE [place] C [facility] [facility] Apr 22, 2024 09:00 AM AMBULATORY - MEDICINE [place] C [facility] [place] [facility] May 03, 2024 01:00 PM AMBULATORY - MEDICINE [place] C [facility] [place] [facility] May 17, 2024 01:00 PM AMBULATORY - REHAB MEDICIN [facility] May 28, 2024 07:30 AM AMBULATORY - MEDICINE [place] C [facility] [place] [facility] Jun 03, 2024 01:00 PM AMBULATORY - MEDICINE [place] C [facility] [place] [facility] Jun 08, 2024 03:00 PM AMBULATORY - REHAB MEDICIN [facility] Jun 11, 2024 08:00 AM AMBULATORY - MEDICINE [facility] Jun 11, 2024 02:00 PM AMBULATORY - REHAB [facility] Jun 14, 2024 10:30 AM AMBULATORY - MEDICINE [place] C [facility] [place] [facility] Active, Pending, and Scheduled Orders This section includes a listing of several types of active, pending, and scheduled orders, including clinic medications orders, diagnostic test orders, procedure orders and consult orders; where the start date of the order is 45 days before the date of the Encounter or 45 days after the date of theEncounter. The data comes from all [place] treatment facilities. Test Date/Time Test Type Test Details Facility Name Apr 08, 2024 12:00 AM Laboratory - Chemistry Order URINALYSIS URINE SP [place] Apr 15, 2024 03:06 PM Consult Order COMMUNITY CARE-NEUROLOGY Cons Track Repair Laborer's Choice [place] [facility] [place] [facility] Lab Results: +/- 30 days of the encounter This section includes the Chemistry and Hematology Lab Results on record with [place] for the patient. Radiology Reports and Pathology Reports are provided separately, in subsequent sections. Lab Results This section contains the Chemistry/Hematology Results that were resulted 30 days before or 30 daysafter the date of the Encounter. Date/Time Source Result Type Result - Unit Interpretation Reference Range Comment Mar 31, 2024 09:16 AM [place] HEMOGLOBIN A1C PANEL Specimen Type: BLOOD Comment: [...] Apr 08, 2023 02:27 PM Reporting Lab: [facility] [address] [address] Performing Lab: [facility] [address] [address] HEMOGLOBIN A1C 5.2 4.0-5.6 Mar 31, 2024 09:16 AM [place] LIPID PANEL FASTING Specimen Type: SERUM No comment entered. Ordering Provider: GREGG HARMON Report Released Date/Time: Apr 08, 2023 02:27 PM Reporting Lab: [facility] [address] [address] Performing Lab: [facility] [address] [address] CHOLESTEROL 164 mg/dL TRIGLYCERIDE 102 mg/dL 0-150 LDL calculated 101 mg/dL 0-129 CHOL/HDL 3.8 HDL CHOLESTEROL 43 mg/dL 40-60 Mar 31, 2024 09:16 AM [place] TSH Specimen Type: SERUM No comment entered. Ordering Provider: GREGG HARMON Report Released Date/Time: Apr 08, 2023 02:27 PM Reporting Lab: [facility] [address] [address] Performing Lab: [facility] [address] TSH 2.67 u[IU]/mL 0.35-5.00 Mar 31, 2024 09:16 AM [place] LIVER FUNCTION Specimen Type: SERUM No comment entered. Ordering Provider: GREGG HARMON Report Released Date/Time: Apr 08, 2023 02:27 PM Reporting Lab: [facility] [address] [address] Performing Lab: [facility] [address] [address] PROTEIN,TOTAL 6.0 g/dL 6.0-8.3 ALBUMIN 3.5 g/dL 3.5-5.0 ALKALINE PHOSPHATASE 70 U/L 40-150 AST 14 U/L 5-34 ALT 20 U/L BILIRUBIN, TOTAL 1.0 mg/dL 0.2-1.2 Mar 31, 2024 09:16 AM [place] BASIC METABOLIC PANEL (fasting) Specime n Type: SERUM No comment entered. Ordering Provider: GREGG HARMON Report Released Date/Time: Apr 08, 2023 02:27 PM Reporting Lab: [address] [address] Performing Lab: [address] [address] UREA NITROGEN 20 mg/dL 7-25 GLUCOSE 100 mg/dL 65-100 SODIUM 140 mmol/L 135-145 POTASSIUM 4.2 mmol/L 3.5-5.0 CHLORIDE 109 mmol/L 100-110 CO2 23 meq/L 20-30 CREATININE, Serum 0.96 mg/dL 0.50-1.40 eGFR(CKD-EPI 2020) 86 mL/min >60 Mar 31, 2024 09:16 AM [place] CBC AND DIFF (AUTO) Specimen Type: BLOOD No comment entered. Ordering Provider: GREGG HARMON Report Released Date/Time: Apr 08, 2023 02:27 PM Reporting Lab: [address] [address] Performing Lab: [address] [address] WBC 4.01 10*3/uL L 4.50-11.00 RBC 4.67 [...] took place. Date/Time Current Smoking Status Comment Odlais casey Apr 08, 2023 09:12 AM MD-TOBACCO NEVER USED [facility] Tobacco Use History This section includes a history of the smoking, or tobacco-related health factors, that were collected on or before the date of the Encounter. The data comes from the [place] facility where the Encounter took place. Date/Time Smoking Status/Tobacco Use Comment F darvin Aug 09, 2021 09:20 AM VA-TOBACCO NEVER USED [facility] Encounter Notes: All associated encounter notes This section contains the clinical notes associated to the Encounter. Date/Time Encounter Note(s) Provider Source Mar 02, 2024 09:48 AM ADDENDUM: LOCAL TITLE: Addendum STANDARD TITLE: ADDENDUM DATE OF NOTE: MAR 02, 2024@09:48:26 ENTRY DATE: MAR 02, 2024@09:48:27 AUTHOR: RADHIKA GOMEZ EXP COSIGNER: URGENCY: STATUS: COMPLETED Placed in forms to complete PACT rightfax folder for pcp review and signature of attached form with orders for aquatic therapy. /es/ BREANNA BAKER RN-BC REGISTERED NURSE Signed: 03/02/2024 09:49 Receipt Acknowledged By: 03/18/2024 17:03 /es/ VESTA BLISS MD PRIMARY CARE PHYSICIAN ==== --- Original Document --- 03/02/24 NON-VA MEDICAL RECORD SUMMARY: NON VA Medical Report This data contains relevant information copied & pasted from a NON VA source. Efforts are made to ensure congruency between this note & the original. This note not DOES NOT contain the entirety of the original. Please see [facility] to view the original note/document. ____ CLINIC NOTE Visit Type: Date: Jan Place of Service: Rehab services at [facility] Service/Department: Aquatic PHYSICAL THERAPY Upcoming Appointments: 03/09/2024 13:00 CWM/NO/VVC/INTRO TO [facility]P G 03/11/2024 11:00 CWM/NO/[facility] PRE NEED CONSULTANT 03/15/2024 12:15 COM CARE-ORTHO GEN 03/17/2024 10:30 CWM/NO/ACUPUNCTURE R1 04/06/2024 10:30 CWM/SO/PACT EIGHT 04/15/2024 10:00 CWM/NO/PAIN MD 1 05/03/2024 13:00 COM CARE-VAS SURGERY 06/11/2024 08:00 CWM/SO/PODIATRY/ROSS 02/11/2025 11:00 NHM/OPTOMETRY/BORASKI SENT TO [facility]ING /es/ BREANNA BAKER RN-BC REGISTERED NURSE Signed: 03/02/2024 09:47 RADHIKA GOMEZ [place] Mar 02, 2024 09:46 AM NONVA NOTE: LOCAL TITLE: NON-VA MEDICAL RECORD SUMMARY STANDARD TITLE: NONVA NOTE DATE OF NOTE: MAR 02, 2024@09:46 ENTRY DATE: MAR 02, 2024@09:46:38 AUTHOR: RADHIKA GOMEZ EXP COSIGNER: URGENCY: STATUS: COMPLETED NON-VA MEDICAL RECORD SUMMARY Has ADDENDA NON VA Medical Report This data contains relevant information copied & pasted from a NON VA source. Efforts are made to ensure congruency between this note & the original. This note not DOES NOT contain the entirety of the original. Please see [facility] to view the original note/document. ____ CLINIC NOTE Visit Type: Date: Jan Place of Service: Rehab services at [facility] Service/Department: Aquatic PHYSICAL THERAPY Upcoming Appointments: 03/09/2024 13:00 CWM/NO/VVC/INTRO TO [facility]P G 03/11/2024 11:00 CWM/NO/[facility] PRE NEED CONSULTANT 03/15/2024 12:15 COM CARE-ORTHO GEN 03/17/2024 10:30 CWM/NO/ACUPUNCTURE R1 04/06/2024 10:30 CWM/SO/PACT EIGHT 04/15/2024 10:00 CWM/NO/PAIN MD 1 05/03/2024 13:00 COM CARE-VAS SURGERY 06/11/2024 08:00 CWM/SO/PODIATRY/ROSS 02/11/2025 11:00 NHM/OPTOMETRY/BORASKI SENT TO SCANNING /BREANNA Gillespie RNKRISTEN REGISTERED NURSE Signed: 03/02/2024 09:47 03/02/2024 ADDENDUM STATUS: COMPLETED Placed in forms to complete PACT rightfax folder for pcp review and signature of attached form with orders for aquatic therapy. /BREANNA Gillespie RNKRISTEN REGISTERED NURSE Signed: 03/02/2024 09:49 Receipt Acknowledged By: * AWAITING SIGNATURE * VESTA BLISS KRISTIN [place]
--- OUTSIDE RECORDS SUMMARY | 2024-06-29 19:04 | XMS_ITS ---
Author Name [facility] [place] [facility] [place] Address [address] [place] [address] Care Team Providers Care Water System Operator Name Role Phone ABD[place] Primary [...] BASIC FAMIL Y Jun 24, 2009 [id number] [phone] ABHILASH GARAY PATIENT ANTHEM BCBS [place] FEP PREFERRED PROVIDER ORGANIZAT ION (PPO) FEP BASIC FAM Jun 24, 2009 112 [id number] [phone] ABHILASH GARAY PATIENT ANTHEM [place]BS [place] F[place] PREFERRED PROVIDER ORGANIZAT ION (PPO) FEP BASIC FAM Jun 24, 2009 112 [id number] [phone] ABHILASH GARAY PATIENT ANTHEM [place] F[place] PREFERRED PROVIDER ORGANIZAT ION (PPO) FEP BASIC FAM Jun 24, 2009 112 [id number] [phone] ABHILASH GARAY PATIENT [place] F[place] PREFERRED PROVIDER ORGANIZAT ION (PPO) FEP BASIC FAM Jun 24, 2009 112 [id number] [phone] ABHILASH GARAY PATIENT BCBS [place] FEP PREFERRED PROVIDER ORGANIZAT ION (PPO) BASIC FAMIL Y Jun 24, 2009 112 [id number] ABHILASH GARAY PATIENT [place] PREFERRED PROVIDER ORGANIZAT ION (PPO) BASIC FAMIL Y Jun 24, 2009 112 [id number] ABHILASH GARAY PATIENT [place] PREFERRED PROVIDER ORGANIZAT ION (PPO) BASIC FAMIL Y Jun 24, 2009 112 [id number] ABHILASH GARAY PATIENT [place] FEP DENTAL DENTAL INSURANCE BASIC Jul 12, 2009 DENTAL [id number] ABHILASH GARAY PATIENT [place] F[place] PREFERRED PROVIDER ORGANIZAT ION (PPO) BASIC FAMIL Y Jun 24, 2009 112 [id number] [phone] ABHILASH GARAY PATIENT [place] FEP ([id number]) PRESCRIPT ION FEPRX Jun 24, 2009 [id number] [phone] ABHILASH GARAY PATIENT [place] FEP BCBS PRESCRIPT ION CAR[place] FEPRX PLAN Nov 21, 2021 [id number] ABHILASH GARAY PATIENT [place] FEPRX PLAN PRESCRIPT ION CAREM ARK FEPRX Nov 21, 2021 [id number] ABHILASH GARAY PATIENT [place]-F EP BCBS PRESCRIPT ION FEP CAREM ARK Nov 21, 2021 [id number] ABHILASH GARAY PATIENT [place]-F EP BCBS PRESCRIPT ION FEP Jun 23, 2010 [id number] ABHILASH GARAY PATIENT MEDICARE (WN) MEDICARE () PART A Feb 22, 2020 PART A [id number] ABHILASH GARAY PATIENT MEDICARE ([facility]) MEDICARE (M) PART A Feb 22, 2020 PART A [id number] [phone] ABHILASH GARAY PATIENT MEDICARE (WNR) MEDICARE (M) PART A Feb 22, 2020 PART A [id number] [phone] ABHILASH GARAY PATIENT MEDICARE (WNR) MEDICARE (M) PART A Feb 22, 2020 PART A [id number] ABHILASH GARAY PATIENT MEDICARE (WNR) MEDICARE (M) PART A Feb 22, 2020 PART A [id number] [phone] ABHILASH GARAY PATIENT Selected Encounter This section includes the information on record at [place] for the Encounter. Date/Time Encounter Type Encounter Description Reason Provider Source Mar 11, 2024 11:00 AM WELLNESS ASSESSMENT BY [facility] ICD-10-CM Z71.89 Other specified counseling ARIEL LUI Fran Encounter Template Text not used by [place] Assessments - Encounter Diagnoses This section includes the primary and secondary diagnoses documented for the Encounter. Date/Time Primary/Secondary Diagnosis Diagnosis Name Provider Source Mar 30, 2024 09:29 AM PRIMARY Other specified counseling ARIEL LUI [facility] [place] [facility] Plan of Treatment: Future Appointments (+ [...] Appointment Type Appointme nt Facility Name Mar 15, 2024 12:15 PM AMBULATORY - MEDICINE [facility] [place] [facility] Mar 25, 2024 01:00 PM AMBULATORY - MEDICINE [facility] [place] [facility] Apr 06, 2024 10:30 AM AMBULATORY - MEDICINE [facility] Apr 07, 2024 03:30 PM AMBULATORY - NONE [facility] [place] [facility] Apr 08, 2024 01:00 PM AMBULATORY - MEDICINE [facility] [place] [facility] Apr 12, 2024 11:00 AM AM[facility]ULAT[facility]ICINE [facility] [place] [facility] Apr 15, 2024 10:00 AM AMBULATORY - MEDICINE [facility] [place] [facility] Apr 19, 2024 11:00 AM AMBULATORY - MEDICINE [facility] [place] [facility] Apr 22, 2024 09:00 AM AMBULATORY - [facility]ICINE [facility] [place] [facility] May 03, 2024 01:00 PM AMBULATORY - MEDICINE [facility] [place] [facility] May 17, 2024 01:00 PM AMBULATORY - REHAB [facility] May 28, 2024 07:30 AM AMBULATORY - MEDICINE [facility] [place] [facility] Jun 03, 2024 01:00 PM AMBULATORY - MEDICINE [facility] [place] [facility] Jun 08, 2024 03:00 PM AMBULATORY - RE[facility]AB [facility] Jun 11, 2024 08:00 AM AMBULATORY - MEDICINE [facility] Jun 11, 2024 02:00 PM AMBULATORY - REHAB [facility] Jun 14, 2024 10:30 AM AMBULATORY - MEDICINE [facility] [place] [facility] Jun 15, 2024 10:00 AM [facility] Jun 22, 2024 11:30 AM AMBULATORY - MEDICINE [facility] [place] [facility] Jun 22, 2024 03:00 PM AMBULATORY - REHAB [facility] Active, Pending, and Scheduled Orders This section includes a listing of several types of active, pending, and scheduled orders, including clinic medications orders, diagnostic test orders, procedure orders and consult orders; where the start date of the order is 45 days before the date of the Encounter or 45 days after the date of theEncounter. The data comes from all [place] treatment facilities. Test Date/Time Test Type Test Details Facility Name Apr 08, 2024 12:00 AM Laboratory - Chemistry Order URINALYSIS URINE [facility] Apr 15, 2024 03:06 PM Consult Order COMMUNITY CARE-NEUROLOGY Cons [place] [facility] [place] [facility] Lab Results: +/- 30 days of [...] Range Comment Mar 31, 2024 09:16 AM [facility] HEMOGLOBIN A1C PANEL Specimen Type: BLOOD Comment: [...] Apr 08, 2023 02:27 PM Reporting [facility]: [facility] [address] [address] Performing Lab: [address] [address] HEMOGLOBIN A1C 5.2 4.0-5.6 Mar 31, 2024 09:16 AM [facility] TSH Specimen Type: SERUM No comment entered. Ordering Provider: GREGG HARMON Report Released Date/Time: Apr 08, 2023 02:27 PM Reporting Lab: [facility] [address] [address] Performing Lab: [facility] [address] [address] TSH 2.67 u[IU]/mL 0.35-5.00 Mar 31, 2024 09:16 AM [facility] LIPID PANEL FASTING Specimen Type: SERUM No comment entered. Ordering Provider: GREGG HARMON Report Released Date/Time: Apr 08, 2023 02:27 PM Reporting Lab: [address] [address] Performing Lab: [address] [address] CHOLESTEROL 164 mg/dL TRIGLYCERIDE 102 mg/dL 0-150 LDL calculated 101 mg/dL 0-129 CHOL/HDL 3.8 HDL CHOLESTEROL 43 mg/dL 40-60 Mar 31, 2024 09:16 AM [facility] BASIC METABOLIC PANEL (fasting) Specime n Type: SERUM No comment entered. Ordering Provider: GREGG HARMON Report Released Date/Time: Apr 08, 2023 02:27 PM Reporting Lab: [address] [address] Performing Lab: [address] [address] UREA NITROGEN 20 mg/dL 7-25 GLUCOSE 100 mg/dL 65-100 SODIUM 140 mmol/L 135-145 POTASSIUM 4.2 mmol/L 3.5-5.0 CHLORIDE 109 mmol/L 100-110 CO2 23 meq/L 20-30 CREATININE, Serum 0.96 mg/dL 0.50-1.40 eGFR(CKD-EPI 2020) 86 mL/min >60 Mar 31, 2024 09:16 AM [facility] LIVER FUNCTION Specimen Type: SERUM No comment entered. Ordering Provider: GREGG HARMON Report Released Date/Time: Apr 08, 2023 02:27 PM Reporting Lab: [address] [address] Performing Lab: [address] [address] PROTEIN,TOTAL 6.0 g/dL 6.0-8.3 ALBUMIN 3.5 g/dL 3.5-5.0 ALKALINE PHOSPHATASE 70 U/L 40-150 AST 14 U/L 5-34 ALT 20 U/L BILIRUBIN, TOTAL 1.0 mg/dL 0.2-1.2 Mar 31, 2024 09:16 AM [facility] CBC AND DIFF (AUTO) Specimen Type: BLOOD No comment entered. Ordering Provider: GREGG HARMON Report Released Date/Time: Apr 08, 2023 02:27 PM Reporting Lab: [address] [address] Performing Lab: [address] [address] WBC 4.01 10*3/uL L 4.50-11.00 RBC 4.67 [...] Gilberto boston Aug 09, 2021 09:20 AM [facility] NEVER USED [facility] Encounter Notes: All associated encounter notes This section contains the clinical notes associated to the Encounter. Date/Time Encounter Note(s) Provider Source Mar 11, 2024 02:42 PM [facility] NOTE: LOCAL TITLE: HEALTH AND WELLNESS COACHING STANDARD TITLE: [facility] NOTE DATE OF NOTE: MAR 11, 2024@14:42 ENTRY DATE: MAR 11, 2024@14:43:10 AUTHOR: ARIEL LUIER: URGENCY: STATUS: COMPLETED Health and Wellness Coaching HEALTH AND WELLNESS COACHING VISIT *Type of Visit: In-person *Session number: Coaching Session #1 Time spent with [place]: 30-60 minutes Health and Wellness Coaching Agreement was discussed and agreed to by [place] and etiquette coach. Well-Being Signs (WBS) reviewed. Well-Being Signs Well-Being Signs (WBS) WBS Average Score: 6.67 Questions and Answers: Over the past month, on average how often have you been: 1. Fully satisfied with how these things are going? 7 2. Regularly involved in things that are important to you? 7 3. Functioning your best in the most important things you do? 6 What really matters to ABHILASH GARAY [place], Aspiration, Purpose (MAP) My , physical health and mental well-being. [place] was seen for Health and Wellness Coaching related to: Working the Body Recharge Food and Drink Personal Development Family, Friends, and Co-workers Spirit and Soul Surroundings Power of the Mind PERSONAL HEALTH INVENTORY For each component below, rate yourself on a scale of 1 (LOW) to 5(HIGH) of where you are and where you would like to be: 1. MOVING THE BODY: Where are you? 2 Where would you like to be? 5 2. RECHARGE: Where are you? 4 Where would you like to be? 5 3. FOOD AND DRINK: Where are you? 3 Where would you like to be? 5 4. PERSONAL DEVELOPMENT: Where are you? 5 Where would you like to be? 5 5. FAMILY, FRIENDS, AND CO-WORKERS: Where are you? 5 Where would you like to be? 5 6. SPIRIT AND SOUL: Where are you? 5 Where would you like to be? 5 7. SURROUNDINGS: Where are you? 5 Where would you like to be? 5 8. POWER OF THE MIND: Where are you? 5 Where would you like to be? 5 [employer] Whole Health Short-Term and Long-Term Goals: TBD DISCUSSION: Patient was provided with Whole Health Coaching overview, responsibilities, and guidelines, and was informed of confidentiality policy. Patient completed Wellness Questionnaire and annual C-SSRS Screening. Community Leader and Patient reviewed and discussed The [place] of Health, Mindful Awareness, and Areas of Self-Care. Completed Personal Health Inventory form and discussed, values, support, and MAP. Patient requesting consult for Massage Therapy. Next Coaching appt. scheduled on February @ 2:00pm F2F. PLAN: Community Leader will enter Massage Therapy Consult, as requested. Patient to review PHI (pg. 2) rated areas of self-care and answer reflection questions. To consider priority area of self-care. Community Leader and patient will continue discussing PHI, review high/low rated areas of self-care, values, strengths, and support. Patient to determine an area of focus. Community Leader and patient will review and discuss long and short-term SMART goals and set action step toward desired goal. Visit Plan: Arranged follow-up with : agreed to follow-up by: (F2F) In-person visit RTC Entered. Patient appointment scheduled, as requested. Suicide Screen: C-SSRS Screening [place]-Suicide Severity Rating Scale (C-SSRS Screener) 1. Over the past month, have you wished you were or wished you could go to sleep and not wake up? No 2. Over the past month, have you had any actual thoughts of killing yourself? No 3. Over the past month, have you been thinking about how you might do this? Response not required due to responses to other questions. 4. Over the past month, have you had these thoughts and had some intention of acting on them? Response not required due to responses to other questions. 5. Over the past month, have you started to work out or worked out the details of how to kill yourself? Response not required due to responses to other questions. 6. If yes, at any time in the past month did you intend to carry out this plan? Response not required due to responses to other questions. 7. In your lifetime, have you ever done anything, started to do anything, or prepared to do anything to end your life (for example, collected pills, obtained a gun, gave away valuables, went to the roof but didn't jump)? No 8. If YES, was this within the past 3 months? Response not required due to responses to other questions. /yunior/ ARIEL LUI [facility] Community Leader Signed: 03/11/2024 14:55 Receipt Acknowledged By: 03/11/2024 16:15 /yunior/ Tete Hayes, PhD Clinical Psychologist SANIA,ARIEL MALONE [facility]
--- OUTSIDE RECORDS SUMMARY | 2024-06-29 19:04 | XMS_ITS | Encounter Summary ---
Author Name [facility] [place] [facility] [place] Address [address] [place] [address] Care Team Providers Care International Controller Name Role Phone ABDIRAHMAN LAKE Primary Care [...] BASIC FAMIL Y Jun 24, 2009 112 [id number] [phone] ABHILASH GARAY PATIENT ANTHEM [place]BS [place] F[place] PREFERRED PROVIDER ORGANIZAT ION (PPO) FEP BASIC FAM Jun 24, 2009 112 [id number] [phone] ABHILASH GARAY PATIENT ANTHEM BCBS [place] FEP PREFERRED PROVIDER ORGANIZAT ION (PPO) FEP BASIC FAM Jun 24, 2009 112 [id number] [phone] ABHILASH GARAY PATIENT ANTHEM [place] F[place] PREFERRED PROVIDER ORGANIZAT ION (PPO) FEP BASIC FAM Jun 24, 2009 112 [id number] [phone] ABHILASH GARAY PATIENT [place] F[place] PREFERRED PROVIDER ORGANIZAT ION (PPO) FEP BASIC FAM Jun 24, 2009 112 [id number] [phone] JEBYOLA ABHILASH PATIENT BCBS [place] F[place] PREFERRED PROVIDER ORGANIZAT ION (PPO) BASIC FAMIL Y Jun 24, 2009 112 [id number] DEJAHDANIKARUBI ACEVESNETH PATIENT [place] PREFERRED PROVIDER ORGANIZAT ION (PPO) BASIC FAMIL Y Jun 24, 2009 112 [id number] [phone] TANISHA ABHILASH PATIENT [place] FEP PREFERRED PROVIDER ORGANIZAT ION (PPO) BASIC FAMIL Y Jun 24, 2009 112 [id number] TANISHARUBIABHILASH PATIENT [place] FEP DENTAL DENTAL INSURANCE BASIC Jul 12, 2009 DENTAL [id number] TANISHA ABHILASH PATIENT [place] FEP PREFERRED PROVIDER ORGANIZAT ION (PPO) BASIC FAMIL Y Jun 24, 2009 [id number] JEBRUBI ACEVESNETH PATIENT [place] FEP ([id number]) PRESCRIPT ION FEPRX Jun 24, 2009 [id number] [phone] DEJAHDANIKARUBI ACEVESNETH PATIENT [place] FEP BCBS PRESCRIPT ION CAREM ARK FEPRX PLAN Nov 21, 2021 [id number] DEJAHDANIKARUBI ACEVESNETH PATIENT [employer] FEPRX PLAN PRESCRIPT ION CAREM ARK FEPRX Nov 21, 2021 [id number] DEJAHDANIKARUBI ACEVESNETH PATIENT [place]-F EP BCBS PRESCRIPT ION FEP CAREM ARK Nov 21, 2021 [id number] TANISHARUBIABHILASH PATIENT [place]-F EP BCBS PRESCRIPT ION FEP Jun 23, 2010 [id number] ABHILASH GARAY PATIENT MEDICARE ([facility]) MEDICARE () PART A Feb 22, 2020 PART A [id number] DEJAHDANIKAYOLA ABHILASH PATIENT MEDICARE (WNR) MEDICARE (M) PART A Feb 22, 2020 PART A [id number] ABHILASH GARAY PATIENT MEDICARE (WNR) MEDICARE (M) PART A Feb 22, 2020 PART A [id number] ABHILASH GARAY PATIENT MEDICARE (WNR) MEDICARE (M) PART A Feb 22, 2020 PART A [id number] ABHILASH GARAY PATIENT MEDICARE (WNR) MEDICARE (M) PART A Feb 22, 2020 PART A [id number] ABHILASH GARAY PATIENT Selected Encounter This section includes the information on record at [place] for the Encounter. Date/Time Encounter Type Encounter Description Reason Provider Source Mar 09, 2024 01:00 PM HLTH B[facility] IVNTJ GRP EA [facility] ICD-10-CM Z73.3 Stress, not elsewhere classified ARTHUR GAVIRIA [facility] Encounter Template Text not used by [place] Assessments - Encounter Diagnoses This section includes the primary and secondary diagnoses documented for the Encounter. Date/Time Primary/Secondary Diagnosis Diagnosis Name Provider Source Mar 25, 2024 05:27 PM PRIMARY Stress, not elsewhere classified [facility]UR [facility] [place] [facility] Plan of Treatment: [...] Appointment Type Appointme nt Facility Name Mar 11, 2024 11:00 AM AMBULATORY - MEDICINE [place] [facility] [place] [facility] Mar 15, 2024 12:15 PM AMBULATORY - MEDICINE [place] [facility] [place] [facility] Mar 25, 2024 01:00 PM AMBULATORY - MEDICINE [place] [facility] [place] [facility] Apr 06, 2024 10:30 AM [facility] Apr 07, 2024 03:30 PM AMBULATORY - NONE [facility] [place] [facility] Apr 08, 2024 01:00 PM AM[facility]ULATORY [facility]ICINE [facility] [place] [facility] Apr 12, 2024 11:00 AM AM[facility]ULATORY [facility]ICINE [facility] [place] [facility] Apr 15, 2024 10:00 AM [facility]AT[facility]ICINE [facility] [place] [facility] Apr 19, 2024 11:00 AM [facility]ICINE [facility] [place] [facility] Apr 22, 2024 09:00 AM AM[facility]ULATORY [facility]ICINE [facility] [place] [facility] May 03, 2024 01:00 PM AMBULATORY [facility] MEDICINE [facility] [place] [facility] May 17, 2024 01:00 PM AMBULATORY - REHAB MEDICIN [facility] May 28, 2024 07:30 AM [facility]ULATORY [facility] MEDICINE [facility] [place] [facility] Jun 03, 2024 01:00 PM AM[facility]ULAT[facility]ICINE [facility] [place] [facility] Jun 08, 2024 03:00 PM AMBULATORY - [facility]AB [facility] Jun 11, 2024 08:00 AM [facility] Jun 11, 2024 02:00 PM AMBULATORY - REHAB MED[facility]IN [facility] Jun 14, 2024 10:30 AM AMBULATORY [facility] MEDICINE [facility] [place] [facility] Jun 15, 2024 10:00 AM AMBULATORY - REHAB MED[facility]IN [facility] Jun 22, 2024 11:30 AM AMBULATORY - MEDICINE [place] [facility] [place] [facility] Active, Pending, and Scheduled Orders This section includes a listing of several types of active, pending, and scheduled orders, including clinic medications orders, diagnostic test orders, procedure orders and consult orders; where the start date of the order is 45 days before the date of the Encounter or 45 days after the date of theEncounter. The data comes from all [place] treatment facilities. Test Date/Time Test Type Test Details Facility Name Apr 08, 2024 12:00 AM Laboratory - Chemistry Order URINALYSIS URINE SP [facility] Apr 15, 2024 03:06 PM Consult Order COMMUNITY CARE-NEUROLOGY Cons Airline Transport Pilot's Choice [facility] [place] [facility] Lab Results: +/- 30 days of the encounter This section includes the Chemistry and Hematology Lab Results on record with [place] for the patient. Radiology Reports and Pathology Reports are provided separately, in subsequent sections. Lab Results This section contains the Chemistry/Hematology Results that were resulted 30 days before or 30 daysafter the date of the Encounter. Date/Time Source Result Type Result - Unit Interpretation Reference Range Comment Mar 31, 2024 09:16 AM [facility] HEMOGLOBIN A1C PANEL Specimen Type: BLOOD Comment: [...] Apr 08, 2023 02:27 PM Reporting Lab: [address] [address] Performing Lab: [address] [address] HEMOGLOBIN A1C 5.2 4.0-5.6 Mar 31, 2024 09:16 AM [facility] LIPID PANEL FASTING Specimen Type: SERUM No comment entered. Ordering Provider: GREGG HARMON Report Released Date/Time: Apr 08, 2023 02:27 PM Reporting Lab: [address] [address] Performing Lab: [address] [address] CHOLESTEROL 164 mg/dL TRIGLYCERIDE 102 mg/dL 0-150 LDL calculated 101 mg/dL 0-129 CHOL/HDL 3.8 HDL CHOLESTEROL 43 mg/dL 40-60 Mar 31, 2024 09:16 AM [facility] TSH Specimen Type: SERUM No comment entered. Ordering Provider: GREGG HARMON Report Released Date/Time: Apr 08, 2023 02:27 PM Reporting Lab: [address] [address] Performing Lab: [address] [address] TSH 2.67 u[IU]/mL 0.35-5.00 Mar 31, 2024 09:16 AM [facility] BASIC METABOLIC PANEL (fasting) Specime n Type: SERUM No comment entered. Ordering Provider: GREGG HARMON Report Released Date/Time: Apr 08, 2023 02:27 PM Reporting Lab: [address] [address] Performing Lab: [address] [address] UREA NITROGEN 20 mg/dL 7-25 GLUCOSE 100 mg/dL 65-100 SODIUM 140 mmol/L 135-145 POTASSIUM 4.2 mmol/L 3.5-5.0 CHLORIDE 109 mmol/L 100-110 CO2 23 meq/L 20-30 CREATININE, Serum 0.96 mg/dL 0.50-1.40 eGFR(CKD-EPI 2020) 86 mL/min >60 Mar 31, 2024 09:16 AM [facility] LIVER FUNCTION Specimen Type: SERUM No comment entered. Ordering Provider: GREGG HARMON Report Released Date/Time: Apr 08, 2023 02:27 PM Reporting Lab: [address] [address] Performing Lab: [address] [address] PROTEIN,TOTAL 6.0 g/dL 6.0-8.3 ALBUMIN 3.5 g/dL 3.5-5.0 ALKALINE PHOSPHATASE 70 U/L 40-150 AST 14 U/L 5-34 ALT 20 U/L BILIRUBIN, TOTAL 1.0 mg/dL 0.2-1.2 Mar 31, 2024 09:16 AM [facility] CBC AND DIFF (AUTO) Specimen Type: BLOOD No comment entered. Ordering Provider: GREGG HARMON Report Released Date/Time: Apr 08, 2023 02:27 PM Reporting Lab: [address] [address] Performing Lab: [address] [address] WBC 4.01 10*3/uL L 4.50-11.00 RBC 4.67 [...] 08, 2023 09:12 AM VA-TOBACCO NEVER USED [facility] Tobacco Use History This section includes a history of the smoking, or tobacco-related health factors, that were collected on or before the date of the Encounter. The data comes from the [place] facility where the Encounter took place. Date/Time Smoking Status/Tobacco Use Comment F acjaved Aug 09, 2021 09:20 AM VA-TOBACCO NEVER USED [facility] Encounter Notes: All associated encounter notes This section contains the clinical notes associated to the Encounter. Date/Time Encounter Note(s) Provider Source Mar 09, 2024 01:00 PM CONSULT: LOCAL TITLE: CONSULT REPORT/WHOLE HEALTH STANDARD TITLE: CONSULT DATE OF NOTE: MAR 09, 2024@13:00 ENTRY DATE: MAR 09, 2024@14:56:02 AUTHOR: ARTHUR GAVIRIA COSIGNER: URGENCY: STATUS: COMPLETED Date: 03/09/24 Facilitators: Arthur Gaviria, PhD; Yecenia Love, Health and Territory Representative Number of Veterans attended: 16 Time: 60 minutes Diagnosis: Stress, not elsewhere classified Group Met: By [place] video connect Visit conducted by clinical video telehealth. Clinician directed use of exam camera. Individual/caregiver verbally consented to visit via telehealth: Yes Individual Contact Details: Best contact number for backup communication with individual: PATIENT PHONE - Emergency contact name/number: Primary NOK: ANNA GARAY Relation: [address] [facility] Phone: [place], [place] [address] Individual Location/Surroundings During Visit: Individual confirmed that he/she is in a private and safe location for visit. Individual location during visit: Home [address] [place] [id number] WHOLE HEALTH GROUP/CLASS Introduction to Whole Health class Tryon attended Introduction to Whole Health session. Information was provided to introduce Veterans to the Whole Health approach to care. Tryon was supported in considering how to utilize his/her own strengths and abilities to help build a healing partnership with [facility] to optimize well-being with a focus on what matters most to the Tryon. Content included an overview of the [place] of Health/Personal Health Inventory and descriptions of 8 areas of self-care and well-being that address many areas of an individual's life. Facilitators discussed how Whole Health goes beyond illnesses, injuries, or disabilities and supports Veterans' focus on values and aspirations. Tryon was encouraged to consider the question What would you do if your health were the best it could be? to assist with setting goals to improve health and well-being. The facilitators provided a description of local service available including, though not limited to: - Enrollment office information - Complementary and Integrative Health approaches - Whole Health Groups - Mental Health services - Whole Health Coaching - Next steps for care referral services (as needed) HANDOUTS: - Whole Health Brochure - Whole Health PHI - Whole Health [place] [facility] All Veterans were given opportunities to participate and ask questions, and all questions posed were addressed. Veterans were informed of availability of emergency services, including 911 and the local ED, as well as the Crisis Line, [phone]. Participation: Tryon expressed understanding of group discussion. No SI/HI plan or intent expressed. Licensed Independent Practitioners: Clinical Observation was Alert & Oriented x3. Thoughts were normal, coherent, and linear. Tryon's affect appeared full range and congruent with current mood. There was no evidence of perceptual or auditory disturbance observed. Tryon's speech was of normal rate, rhythm, volume with normal content. Follow up: Displayed interest in follow up with: Declined further Whole Health follow up /es/ Arthur Gaviria, PhD Clinical Psychologist Signed: 03/09/2024 14:57 ARTHUR GAVIRIA [place] [facility]
--- OUTSIDE RECORDS SUMMARY | 2024-06-29 19:04 | XMS_ITS ---
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 Name Role Phone ABDIRAHMAN LAKE [...] BASIC FAMIL Y Jun 24, 2009 [id number] [phone] ABHILASH GARAY PATIENT ANTHEM BCBS [place] FEP PREFERRED PROVIDER ORGANIZAT ION (PPO) FEP BASIC FAM Jun 24, 2009 [id number] [phone] ABHILASH GARAY PATIENT ANTHEM [place]BS [place] F[place] PREFERRED PROVIDER ORGANIZAT ION (PPO) FEP BASIC FAM Jun 24, 2009 112 [id number] [phone] ABHILASH GARAY PATIENT [place] PREFERRED PROVIDER ORGANIZAT ION (PPO) FEP BASIC FAM Jun 24, 2009 112 [id number] [phone] ABHILASH GARAY PATIENT [place] PREFERRED PROVIDER ORGANIZAT ION (PPO) FEP BASIC FAM Jun 24, 2009 [id number] [phone] ABHILASH GARAY PATIENT [place] F[place] PREFERRED PROVIDER ORGANIZAT ION (PPO) BASIC FAMIL Y Jun 24, 2009 [id number] ABHILASH GARAY PATIENT [place] PREFERRED PROVIDER ORGANIZAT ION (PPO) BASIC FAMIL Y Jun 24, 2009 112 [id number] [phone] ABHILASH GARAY PATIENT [place] PREFERRED PROVIDER ORGANIZAT ION (PPO) BASIC FAMIL Y Jun 24, 2009 [id number] ABHILASH GARAY PATIENT [place] DENTAL DENTAL INSURANCE BASIC Jul 12, 2009 DENTAL [id number] ABHILASH GARAY PATIENT [place] PREFERRED PROVIDER ORGANIZAT ION (PPO) BASIC FAMIL Y Jun 24, 2009 [id number] [phone] ABHILASH GARAY PATIENT [employer] FEP ([id number]) PRESCRIPT ION FEPRX Jun 24, 2009 [id number] [phone] ABHILASH GARAY PATIENT [place] FEP BCBS PRESCRIPT ION CAREM ARK FEPRX PLAN Nov 21, 2021 [id number] ABHILASH GARAY PATIENT [employer] FEPRX PLAN PRESCRIPT ION CAREM ARK FEPRX Nov 21, 2021 [id number] ABHILASH GARAY PATIENT [employer]-F [place] BCBS PRESCRIPT ION FEP CAREM ARK Nov 21, 2021 [id number] ABHILASH GARAY PATIENT [place]-F [place] BCBS PRESCRIPT ION FEP Jun 23, 2010 [id number] ABHILASH GARAY PATIENT MEDICARE ([place]) MEDICARE () PART A Feb 22, 2020 PART A [id number] ABHILASH GARAY PATIENT MEDICARE ([facility]) MEDICARE () PART A Feb 22, 2020 PART A [id number] ABHILASH GARAY PATIENT MEDICARE (WNR) MEDICARE (M) PART A Feb 22, 2020 PART A [id number] ABHILASH GARAY PATIENT MEDICARE (WNR) MEDICARE (M) PART A Feb 22, 2020 PART A [id number] ABHILASH GARAY PATIENT MEDICARE (WNR) MEDICARE (M) PART A Feb 22, 2020 PART A [id number] ABHILASH GARAY PATIENT Selected Encounter This section includes the information on record at [place] for the Encounter. Date/Time Encounter Type Encounter Description Reason Pro vider Source Jan 30, 2024 12:00 PM Outpatient Encounter COMMUNITY CARE CONSULT [...] 02, 2024 02:00 PM AM[place]ULATORY - [place]IC[place] [facility] [place] [facility] Feb 04, 2024 11:00 AM AMBULATORY [place]ICINE [place] [facility] [place] [facility] Feb 09, 2024 11:30 AM AMBULATORY [place] MEDICINE [place] [facility] [place] [facility] Feb 09, 2024 02:00 PM AMBULATORY - MEDICINE [place] [facility] [place] [facility] Feb 19, 2024 01:00 PM AMBULATORY - MEDICINE [place] [facility] [place] [facility] Feb 25, 2024 11:00 AM AMBULATORY - NONE [facility] [place] [facility] Mar 04, 2024 01:00 PM AMBULATORY - MEDICINE [place] [facility] [place] [facility] Mar 09, 2024 01:00 PM AMBULATORY - MEDICINE [place] [facility] [place] [facility] Mar 11, 2024 11:00 AM AMBULATORY - MEDICINE [facility] [place] [facility] Mar 15, 2024 12:15 PM AMBULATORY - MEDICINE [facility] [place] [facility] Mar 25, 2024 01:00 PM AMBULATORY - MEDICINE [facility] [place] [facility] Apr 06, 2024 10:30 AM AM[facility]ULATORY - MEDICINE [facility] Apr 07, 2024 03:30 PM AMBULATORY - NONE [facility] [place] [facility] Apr 08, 2024 01:00 PM AMBULATORY - MEDICINE [facility] [place] [facility] Apr 12, 2024 11:00 AM AMBULATORY - MEDICINE [facility] [place] [facility] Apr 15, 2024 10:00 AM AMBULATORY - MEDICINE [facility] [place] [facility] Apr 19, 2024 11:00 AM AMBULATORY - MEDICINE [facility] [place] [facility] Apr 22, 2024 09:00 AM AMBULATORY - MEDICINE [facility] [place] [facility] May 03, 2024 01:00 PM AMBULATORY - MEDICINE [facility] [place] [facility] May 17, 2024 01:00 PM AMBULATORY - REHAB [facility] Social History: Smoking Status [...] 08, 2023 09:12 AM VA-TOBACCO NEVER USED [facility] Tobacco Use History This section includes a history of the smoking, or tobacco-related health factors, that were collected on or before the date of the Encounter. The data comes from the [place] facility where the Encounter took place. Date/Time Smoking Status/Tobacco Use Comment Gilberto boston Aug 09, 2021 09:20 AM [facility] Encounter Notes: All associated encounter notes This section contains the clinical notes associated to the Encounter. Date/Time Encounter Note(s) Provider Source Jan 30, 2024 12:00 PM NONVA CONSULT: LOCAL TITLE: COMMUNITY CARE-CONSULT RESULT NOTE STANDARD TITLE: NONVA CONSULT DATE OF NOTE: JAN 30, 2024@12:00 ENTRY DATE: MAR 01, 2024@13:46:53 AUTHOR: IFEANYI PARKER COSIGNER: URGENCY: STATUS: COMPLETED VistA Imaging - Scanned Document SCANNED DOCUMENT SIGNATURE NOT REQUIRED Electronically Filed: 03/01/2024 by: IFEANYI BOYLE [facility]
--- OUTSIDE RECORDS SUMMARY | 2024-06-29 19:04 | XMS_ITS | Encounter Summary ---
Author Name [facility] [place] [facility] [place] Address [address] [place] [address] Care Team Providers Care Senior Online Marketing Manager Name Role Phone ABDIRAHMAN LAKE Primary [...] BASIC FAMIL Y Jun 24, 2009 112 [id number] [phone] ABHILASH GARAY PATIENT ANTHEM BCBS [place] FEP PREFERRED PROVIDER ORGANIZAT ION (PPO) FEP BASIC FAM Jun 24, 2009 112 [id number] [phone] ABHILASH GARAY PATIENT ANTHEM BCBS [place] FEP PREFERRED PROVIDER ORGANIZAT ION (PPO) FEP BASIC FAM Jun 24, 2009 112 [id number] [phone] ABHILASH GARAY PATIENT ANTHEM [place] F[place] PREFERRED PROVIDER ORGANIZAT ION (PPO) FEP BASIC FAM Jun 24, 2009 112 [id number] [phone] ABHILASH GARAY PATIENT [place] FEP PREFERRED PROVIDER ORGANIZAT ION (PPO) FEP BASIC FAM Jun 24, 2009 112 [id number] [phone] ABHILASH GARAY PATIENT BCBS [place] FEP PREFERRED PROVIDER ORGANIZAT ION (PPO) BASIC FAMIL Y Jun 24, 2009 112 [id number] ABHILASH GARAY PATIENT [place] F[place] PREFERRED PROVIDER ORGANIZAT ION (PPO) BASIC FAMIL Y Jun 24, 2009 [id number] ABHILASH GARAY PATIENT [place] FEP PREFERRED PROVIDER ORGANIZAT ION (PPO) BASIC FAMIL Y Jun 24, 2009 112 [id number] [phone] ABHILASH GARAY PATIENT [place] FEP DENTAL DENTAL INSURANCE BASIC Jul 12, 2009 DENTAL [id number] ABHILASH GARAY PATIENT [place] FEP PREFERRED PROVIDER ORGANIZAT ION (PPO) BASIC FAMIL Y Jun 24, 2009 112 [id number] [phone] ABHILASH GARAY PATIENT [employer] FEP ([id number]) PRESCRIPT ION FEPRX Jun 24, 2009 [id number] [phone] ABHILASH GARAY PATIENT [place] FEP BCBS PRESCRIPT ION CAREM ARK FEPRX PLAN Nov 21, 2021 [id number] ABHILASH GARAY PATIENT [employer] FEPRX PLAN PRESCRIPT ION CAREM ARK FEPRX Nov 21, 2021 [id number] ABHILASH GARAY PATIENT [employer]ARK-F EP BCBS PRESCRIPT ION FEP CAREM ARK Nov 21, 2021 [id number] ABHILASH GARAY PATIENT [place]-F EP BCBS PRESCRIPT ION FEP Jun 23, 2010 [id number] ABHILASH GARAY PATIENT MEDICARE (WN) MEDICARE () PART A Feb 22, 2020 PART A [id number] ABHILASH GARAY PATIENT MEDICARE ([facility]) MEDICARE (M) PART A Feb 22, 2020 PART A [id number] ABHILASH GARAY PATIENT MEDICARE (WNR) MEDICARE (M) PART A Feb 22, 2020 PART A [id number] ABHILASH GARAY PATIENT MEDICARE (WNR) MEDICARE (M) PART A Feb 22, 2020 PART A [id number] ABHILASH GARAY PATIENT MEDICARE (WNR) MEDICARE (M) PART A Feb 22, 2020 PART A [id number] ABHILASH GARAY PATIENT Selected Encounter This section includes the information on record at [place] for the Encounter. Date/Time Encounter Type Encounter Description Reason Pro vider Source Mar 18, 2024 02:10 PM Outpatient Encounter [facility] IHE Encounter Template Text not used by [...] Appointment Type Appointme nt Facility Name Mar 25, 2024 01:00 PM AMBULATORY - MEDICINE [place] [facility] [place] [facility] Apr 06, 2024 10:30 AM AMBULATORY - MEDICINE [facility] Apr 07, 2024 03:30 PM AMBULATORY - NONE [place] [facility] [place] [facility] Apr 08, 2024 01:00 PM AMBULATORY - MEDICINE [place] [facility] [place] [facility] Apr 12, 2024 11:00 AM AMBULATORY - MEDICINE [facility] [place] [facility] Apr 15, 2024 10:00 AM AMBULATORY - MEDICINE [facility] [place] [facility] Apr 19, 2024 11:00 AM AMBULATORY - MEDICINE [place] [facility] [place] [facility] Apr 22, 2024 09:00 AM AMBULATORY - MEDICINE [place] [facility] [place] [facility] May 03, 2024 01:00 PM AMBULATORY - MEDICINE [place] [facility] [place] [facility] May 17, 2024 01:00 PM AMBULATORY - REHAB MEDICIN [facility] May 28, 2024 07:30 AM AMBULATORY - MEDICINE [place] [facility] [place] [facility] Jun 03, 2024 01:00 PM AMBULATORY - MEDICINE [place] [facility] [place] [facility] Jun 08, 2024 03:00 PM AMBULATORY - REHAB MEDICIN [facility] Jun 11, 2024 08:00 AM [facility]ULATORY - [facility]ICINE [facility] Jun 11, 2024 02:00 PM AMBULATORY - REHAB MEDICIN [facility] Jun 14, 2024 10:30 AM AMBULATORY - MEDICINE [place] [facility] [place] [facility] Jun 15, 2024 10:00 AM AMBULATORY - REHAB MEDICIN [facility] Jun 22, 2024 11:30 AM AMBULATORY - MEDICINE [place] [facility] [place] [facility] Jun 22, 2024 03:00 PM AMBULATORY - REHAB [facility] Jun 24, 2024 01:00 PM AMBULATORY - [facility]IC[facility] Active, Pending, and Scheduled Orders This section includes a listing of several types of active, pending, and scheduled orders, including clinic medications orders, diagnostic test orders, procedure orders and consult orders; where the start date of the order is 45 days before the date of the Encounter or 45 days after the date of theEncounter. The data comes from all [place] treatment facilities. Test Date/Time Test Type Test Details Facility Name Apr 08, 2024 12:00 AM Laboratory - Chemistry Order URINALYSIS URINE [facility] Apr 15, 2024 03:06 PM Consult Order COMMUNITY CARE-NEUROLOGY Cons Plant Anatomist's Choice [facility] Lab Results: +/- 30 days of the encounter This section includes the Chemistry and Hematology Lab Results on record with [place] for the patient. Radiology Reports and Pathology Reports are provided separately, in subsequent sections. Lab Results This section contains the Chemistry/Hematology Results that were resulted 30 days before or 30 daysafter the date of the Encounter. Date/Time Source Result Type Result - Unit Interpretation Reference Range Comment Apr 15, 2024 11:16 AM [facility] CPK Specimen Type: SERUM No comment entered. Ordering Provider: JOHN PAUL DENNISON Report Released Date/Time: Apr 15, 2024 10:55 AM Reporting Lab: [address] [address] Performing Lab: [address] [address] CPK 67 U/L 30-200 Mar 31, 2024 09:16 AM [facility] HEMOGLOBIN A1C PANEL Specimen Type: BLOOD Comment: [...] Apr 08, 2023 02:27 PM Reporting Lab: [address] [address] Performing Lab: [address] [address] HEMOGLOBIN A1C 5.2 4.0-5.6 Mar 31, 2024 09:16 AM [facility] BASIC METABOLIC PANEL (fasting) Specime n Type: SERUM No comment entered. Ordering Provider: GREGG HARMON Report Released Date/Time: Apr 08, 2023 02:27 PM Reporting Lab: [address] [address] Performing Lab: [address] [address] UREA NITROGEN 20 mg/dL 7-25 GLUCOSE 100 mg/dL 65-100 SODIUM 140 mmol/L 135-145 POTASSIUM 4.2 mmol/L 3.5-5.0 CHLORIDE 109 mmol/L 100-110 CO2 23 meq/L 20-30 CREATININE, Serum 0.96 mg/dL 0.50-1.40 eGFR(CKD-EPI 2020) 86 mL/min >60 Mar 31, 2024 09:16 AM [facility] TSH Specimen Type: SERUM No comment entered. Ordering Provider: GREGG HARMON Report Released Date/Time: Apr 08, 2023 02:27 PM Reporting Lab: [facility] [address] [facility] [address] Performing Lab: [facility] [address] [address] TSH 2.67 u[IU]/mL 0.35-5.00 Mar 31, 2024 09:16 AM [facility] LIPID PANEL FASTING Specimen Type: SERUM No comment entered. Ordering Provider: GREGG HARMON Report Released Date/Time: Apr 08, 2023 02:27 PM Reporting Lab: [facility] [address] [address] Performing Lab: [address] [address] CHOLESTEROL 164 mg/dL TRIGLYCERIDE 102 mg/dL 0-150 LDL calculated 101 mg/dL 0-129 CHOL/HDL 3.8 HDL CHOLESTEROL 43 mg/dL 40-60 Mar 31, 2024 09:16 AM [facility] LIVER FUNCTION Specimen Type: SERUM No comment entered. Ordering Provider: GREGG HARMON Report Released Date/Time: Apr 08, 2023 02:27 PM Reporting Lab: [address] [address] Performing Lab: [address] [address] PROTEIN,TOTAL 6.0 g/dL 6.0-8.3 ALBUMIN 3.5 g/dL 3.5-5.0 ALKALINE PHOSPHATASE 70 U/L 40-150 AST 14 U/L 5-34 ALT 20 U/L BILIRUBIN, TOTAL 1.0 mg/dL 0.2-1.2 Mar 31, 2024 09:16 AM [facility] CBC AND DIFF (AUTO) Specimen Type: BLOOD No comment entered. Ordering Provider: GREGG HARMON Report Released Date/Time: Apr 08, 2023 02:27 PM Reporting Lab: [facility] [address] [address] Performing Lab: [facility] [address] [address] WBC 4.01 10*3/uL L 4.50-11.00 RBC 4.67 [...] 08, 2023 09:12 AM VA-TOBACCO NEVER USED [facility] Tobacco Use History This section includes a history of the smoking, or tobacco-related health factors, that were collected on or before the date of the Encounter. The data comes from the [place] facility where the Encounter took place. Date/Time Smoking Status/Tobacco Use Comment F acility Aug 09, 2021 09:20 AM VA-TOBACCO NEVER USED [facility] Encounter Notes: All associated encounter notes This section contains the clinical notes associated to the Encounter. Date/Time Encounter Note(s) Provider Source Mar 18, 2024 02:11 PM ADMINISTRATIVE NOTE: LOCAL TITLE: ADMINISTRATIVE RECALL NOTE STANDARD TITLE: ADMINISTRATIVE NOTE DATE OF NOTE: MAR 18, 2024@14:11 ENTRY DATE: MAR 18, 2024@14:11:16 AUTHOR: CATHIE CULLEN EXP COSIGNER: URGENCY: STATUS: COMPLETED RTC orders: Unable to contact patient: Attempts to contact: 1st attempt: Left voicemail 2nd attempt: Letter mailed Disposition on Mar 3rd attempt: 4th attempt: /es/ CATHIE CULLEN [facility] Signed: 03/18/2024 14:11 CATHIE CULLEN [place] [facility] Mar 18, 2024 02:10 PM LETTERS: LOCAL TITLE: PATIENT LETTER (B) STANDARD TITLE: LETTERS DATE OF NOTE: MAR 18, 2024@14:10 ENTRY DATE: MAR 18, 2024@14:10:37 AUTHOR: CATHIE CULLEN EXP COSIGNER: URGENCY: STATUS: COMPLETED [facility] Toll Free Number [facility] scheduling can be reached at ext. [phone] [facility]- ext. [phone] [facility]- ext. [phone] [facility]- ext. [phone] MAR 18, 2024 ABHILASH GARAY [address] [place] [address] Dear ABHILASH GARAY Thank you for choosing the [facility] as your primary choice for health care. As a partner in your health care, we are contacting you in writing since we have been unsuccessful in our attempts to reach you to date. We want to assure you we are doing everything possible to schedule Veterans for their VA medical care appointments. Our records indicate you are due for an appointment in [facility], [facility]. If you would like to be seen, please contact [facility] at ext. [phone] to REschedule an appointment. Thank you for your service to our nation, and we look forward to hearing from you soon. Sincerely, [facility] [address] [facility] [address] [place] [address] [place] [address] [facility] Outpatient [facility] [address] [facility] [address] [place] [address] [place] [address] ext. [phone] [facility] [address] [address] [place] [address] ext. [phone] [facility] [address] [place] [address] ext. [phone] CATHIE CULLEN [place] [facility]
--- OUTSIDE RECORDS SUMMARY | 2024-06-29 19:05 | XMS_ITS | Encounter Summary ---
Author Name [facility] [place] [facility] [place] Address [address] [place] [address] Care Team Providers Care Sustainability Analyst Name Role Phone ABDIRHAMAN LAKE Primary Care Provider Unavailenrrique wilkes Insurance [...] BASIC FAMIL Y Jun 24, 2009 [id number] [phone] ABHILASH GARAY PATIENT ANTHEM BCBS [place] F[place] PREFERRED PROVIDER ORGANIZAT ION (PPO) FEP BASIC FAM Jun 24, 2009 [id number] [phone] ABHILASH GARAY PATIENT ANTHEM [place]BS [place] F[place] PREFERRED PROVIDER ORGANIZAT ION (PPO) FEP BASIC FAM Jun 24, 2009 112 [id number] [phone] ABHILASH GARAY PATIENT [place]THEM [place] PREFERRED PROVIDER ORGANIZAT ION (PPO) FEP BASIC FAM Jun 24, 2009 112 [id number] [phone] ABHILASH GARAY PATIENT [place] PREFERRED PROVIDER ORGANIZAT ION (PPO) FEP BASIC FAM Jun 24, 2009 [id number] [phone] ABHILASH GARAY PATIENT [place] FEP PREFERRED PROVIDER ORGANIZAT ION (PPO) BASIC FAMIL Y Jun 24, 2009 [id number] ABHILASH GARAY PATIENT [place] PREFERRED PROVIDER ORGANIZAT ION (PPO) BASIC FAMIL Y Jun 24, 2009 112 [id number] [phone] ABHILASH GARAY PATIENT [place] FEP PREFERRED PROVIDER ORGANIZAT ION (PPO) BASIC FAMIL Y Jun 24, 2009 [id number] ABHILASH GARAY PATIENT [place] FEP DENTAL DENTAL INSURANCE BASIC Jul 12, 2009 DENTAL [id number] ABHILASH GARAY PATIENT [place] F[place] PREFERRED PROVIDER ORGANIZAT ION (PPO) BASIC FAMIL Y Jun 24, 2009 112 [id number] [phone] ABHILASH GARAY PATIENT [employer] FEP ([id number]) PRESCRIPT ION FEPRX Jun 24, 2009 [id number] [phone] ABHILASH GARAY PATIENT [place] FEP BCBS PRESCRIPT ION CAREM ARK FEPRX PLAN Nov 21, 2021 [id number] ABHILASH GARAY PATIENT [employer] FEPRX PLAN PRESCRIPT ION CAREM ARK FEPRX Nov 21, 2021 [id number] ABHILASH GARAY PATIENT [employer]-F EP BCBS PRESCRIPT ION FEP CAREM ARK Nov 21, 2021 [id number] ABHILASH GARAY PATIENT [place]-F EP BCBS PRESCRIPT ION FEP Jun 23, 2010 [id number] ABHILASH GARAY PATIENT MEDICARE (WN) MEDICARE () PART A Feb 22, 2020 PART A [id number] ABHILASH GARAY PATIENT MEDICARE ([facility]) MEDICARE () PART A Feb 22, 2020 PART A [id number] ABHILASH GARAY PATIENT MEDICARE (WNR) MEDICARE (M) PART A Feb 22, 2020 PART A [id number] ABHILASH GARAY PATIENT MEDICARE (WNR) MEDICARE (M) PART A Feb 22, 2020 PART A [id number] ABHILASH GARAY PATIENT MEDICARE (WNR) MEDICARE (M) PART A Feb 22, 2020 PART A [id number] ABHILASH GARAY PATIENT Selected Encounter This section includes the information on record at [place] for the Encounter. Date/Time Encounter Type Encounter Description Reason Pro vider Source Mar 18, 2024 04:43 PM Outpatient Encounter PRIMARY CARE/MEDICINE IHE Encounter [...] [facility] [place] [facility] Apr 06, 2024 10:30 AM AMBULATORY - MEDICINE [facility] Apr 07, 2024 03:30 PM AMBULATORY - NONE [facility] [place] [facility] Apr 08, 2024 01:00 PM AMBULATORY - MEDICINE [facility] [place] [facility] Apr 12, 2024 11:00 AM AMBULATORY - MEDICINE [facility] [place] [facility] Apr 15, 2024 10:00 AM AMBULATORY - MEDICINE [facility] [place] [facility] Apr 19, 2024 11:00 AM AMBULATORY - MEDICINE [facility] [place] [facility] Apr 22, 2024 09:00 AM AMBULATORY - MEDICINE [facility] [place] [facility] May 03, 2024 01:00 PM AMBULATORY - MEDICINE [facility] [place] [facility] May 17, 2024 01:00 PM AMBULATORY - REHAB MEDICIN [facility] May 28, 2024 07:30 AM AMBULATORY - MEDICINE [place] [facility] [place] [facility] Jun 03, 2024 01:00 PM AMBULATORY - MEDICINE [place] [facility] [place] [facility] Jun 08, 2024 03:00 PM AMBULATORY - REHAB MEDICIN [facility] Jun 11, 2024 08:00 AM AM[facility]ULATORY - [facility]ICINE [facility] Jun 11, 2024 02:00 PM AMBULATORY - REHAB MEDICIN [facility] Jun 14, 2024 10:30 AM AMBULATORY - MEDICINE [facility] [place] [place] [facility] Jun 15, 2024 10:00 AM AMBULATORY - REHAB MEDICIN [facility] Jun 22, 2024 11:30 AM AMBULATORY - MEDICINE [facility]L [place] [facility] Jun 22, 2024 03:00 PM AMBULATORY - REHAB [facility] Jun 24, 2024 01:00 PM AMBULATORY - MEDICINE [facility] Active, Pending, and Scheduled Orders This section includes a listing of several types of active, pending, and scheduled orders, including clinic medications orders, diagnostic test orders, procedure orders and consult orders; where the start date of the order is 45 days before the date of the Encounter or 45 days after the date of theEncounter. The data comes from all [place] treatment facilities. Test Date/Time Test Type Test Details Facility Name Apr 08, 2024 12:00 AM Laboratory - Chemistry Order URINALYSIS URINE [facility] Apr 15, 2024 03:06 PM Consult Order COMMUNITY CARE-NEUROLOGY Cons Crusher Supervisor's Choice [facility] Lab Results: +/- 30 days of the encounter This section includes the Chemistry and Hematology Lab Results on record with [place] for the patient. Radiology Reports and Pathology Reports are provided separately, in subsequent sections. Lab Results This section contains the Chemistry/Hematology Results that were resulted 30 days before or 30 daysafter the date of the Encounter. Date/Time Source Result Type Result - Unit Interpretation Reference Range Comment Apr 15, 2024 11:16 AM [facility] CPK Specimen Type: SERUM No comment entered. Ordering Provider: JOHN PAUL DENNISON Report Released Date/Time: Apr 15, 2024 10:55 AM Reporting Lab: [facility] [address] [facility] [address] Performing Lab: [facility] [address] [address] CPK 67 U/L 30-200 Mar 31, 2024 09:16 AM [facility] HEMOGLOBIN A1C PANEL Specimen Type: BLOOD Comment: [...] Apr 08, 2023 02:27 PM Reporting Lab: [facility] [address] [address] Performing Lab: [facility]USE[address] [address] HEMOGLOBIN A1C 5.2 4.0-5.6 Mar 31, 2024 09:16 AM [facility] TSH Specimen Type: SERUM No comment entered. Ordering Provider: GREGG HARMON Report Released Date/Time: Apr 08, 2023 02:27 PM Reporting Lab: [facility]TRN [facility] [address] [facility] [address] Performing Lab: [facility]ITAL[facility] [address] [address] TSH 2.67 u[IU]/mL 0.35-5.00 Mar 31, 2024 09:16 AM [facility] LIPID PANEL FASTING Specimen Type: SERUM No comment entered. Ordering Provider: GREGG HARMON Report Released Date/Time: Apr 08, 2023 02:27 PM Reporting Lab: [facility]TRN [facility]ITAL[facility]ETS [address] [address] Performing Lab: [facility]ITALN [address] [address] CHOLESTEROL 164 mg/dL TRIGLYCERIDE 102 mg/dL 0-150 LDL calculated 101 mg/dL 0-129 CHOL/HDL 3.8 HDL CHOLESTEROL 43 mg/dL 40-60 Mar 31, 2024 09:16 AM [facility] BASIC METABOLIC PANEL (fasting) Specime n Type: SERUM No comment entered. Ordering Provider: GREGG HARMNO Report Released Date/Time: Apr 08, 2023 02:27 PM Reporting Lab: [address] [address] Performing Lab: [address] [address] [facility] NITROGEN 20 mg/dL 7-25 GLUCOSE 100 mg/dL 65-100 SODIUM 140 mmol/L 135-145 POTASSIUM 4.2 mmol/L 3.5-5.0 CHLORIDE 109 mmol/L 100-110 CO2 23 meq/L 20-30 CREATININE, Serum 0.96 mg/dL 0.50-1.40 eGFR(CKD-EPI 2020) 86 mL/min >60 Mar 31, 2024 09:16 AM [facility] LIVER FUNCTION Specimen Type: SERUM No comment entered. Ordering Provider: GREGG HARMON Report Released Date/Time: Apr 08, 2023 02:27 PM Reporting Lab: [address] [address] Performing Lab: [address] [address] PROTEIN,TOTAL 6.0 g/dL 6.0-8.3 ALBUMIN 3.5 g/dL 3.5-5.0 ALKALINE PHOSPHATASE 70 U/L 40-150 AST 14 U/L 5-34 ALT 20 U/L BILIRUBIN, TOTAL 1.0 mg/dL 0.2-1.2 Mar 31, 2024 09:16 AM [facility] CBC AND DIFF (AUTO) Specimen Type: BLOOD No comment entered. Ordering Provider: GREGG HARMON Report Released Date/Time: Apr 08, 2023 02:27 PM Reporting Lab: [address] [address] Performing Lab: [address] [address] WBC 4.01 10*3/uL L 4.50-11.00 RBC 4.67 [...] 08, 2023 09:12 AM VA-TOBACCO NEVER USED [facility] Tobacco Use History This section includes a history of the smoking, or tobacco-related health factors, that were collected on or before the date of the Encounter. The data comes from the [place] facility where the Encounter took place. Date/Time Smoking Status/Tobacco Use Comment F acjaved Aug 09, 2021 09:20 AM VA-TOBACCO NEVER USED [facility] Encounter Notes: All associated encounter notes This section contains the clinical notes associated to the Encounter. Date/Time Encounter Note(s) Provider Source Mar 18, 2024 04:43 PM PHYSICIAN NOTE: LOCAL TITLE: MD NOTE STANDARD TITLE: PHYSICIAN NOTE DATE OF NOTE: MAR 18, 2024@16:43 ENTRY DATE: MAR 18, 2024@16:43:44 AUTHOR: VESTA BLISS EXP COSIGNER: URGENCY: STATUS: COMPLETED I signed the form and send it to folder [facility]SA to fax out /es/ VESTA BLISS MD PRIMARY CARE PHYSICIAN Signed: 03/18/2024 16:44 VESTA BLISS [facility]
--- OUTSIDE RECORDS SUMMARY | 2024-06-29 19:05 | XMS_ITS | Encounter Summary ---
Author Name [facility] [place] [facility] [place] Address [address] [place] [address] Care Team Providers Care Sales Agent Insurance Name Role Phone [place] Primary Care [...] BASIC FAMIL Y Jun 24, 2009 [id number] [phone] ABHILASH GARAY PATIENT [place] PREFERRED PROVIDER ORGANIZAT ION (PPO) FEP BASIC FAM Jun 24, 2009 112 [id number] [phone] ABHILASH GARAY PATIENT ANTHEM [place] PREFERRED PROVIDER ORGANIZAT ION (PPO) FEP BASIC FAM Jun 24, 2009 112 [id number] [phone] ABHILASH GARAY PATIENT [place] PREFERRED PROVIDER ORGANIZAT ION (PPO) FEP BASIC FAM Jun 24, 2009 112 [id number] [phone] ABHILASH GARAY PATIENT [place] PREFERRED PROVIDER ORGANIZAT ION (PPO) FEP BASIC FAM Jun 24, 2009 112 [id number] [phone] RUBI GARYANETH PATIENT [place]BS [place] PREFERRED PROVIDER ORGANIZAT ION (PPO) BASIC FAMIL Y Jun 24, 2009 [id number] ABHILASH GARAY PATIENT [place] PREFERRED PROVIDER ORGANIZAT ION (PPO) BASIC FAMIL Y Jun 24, 2009 112 [id number] ABHILASH GARAY PATIENT [place] PREFERRED PROVIDER ORGANIZAT ION (PPO) BASIC FAMIL Y Jun 24, 2009 [id number] ABHILASH GARAY PATIENT [place] DENTAL DENTAL INSURANCE BASIC Jul 12, 2009 DENTAL [id number] [phone] ABHILASH GARAY PATIENT [place] PREFERRED PROVIDER ORGANIZAT ION (PPO) BASIC FAMIL Y Jun 24, 2009 112 [id number] [phone] ABHILASH GARAY PATIENT [place] FEP ([id number]) PRESCRIPT ION FEPRX Jun 24, 2009 [id number] [phone] ABHILASH GARAY PATIENT [place] FEP BCBS PRESCRIPT ION CAR[place] FEPRX PLAN Nov 21, 2021 [id number] ABHILASH GARAY PATIENT [place] FEPRX PLAN PRESCRIPT ION CAREM ARK FEPRX Nov 21, 2021 [id number] ABHILASH GARAY PATIENT [place]-F [place] BCBS PRESCRIPT ION FEP CAREM ARK Nov 21, 2021 [id number] ABHILASH GARAY PATIENT [place]-F EP BCBS PRESCRIPT ION FEP Jun 23, 2010 [id number] DEJAHDANIKARUBI ACEVESNETH PATIENT MEDICARE (WNR) MEDICARE (M) PART A Feb 22, 2020 PART A [id number] RUBI GARAYNETH PATIENT MEDICARE (WN) MEDICARE (M) PART A Feb 22, 2020 PART A [id number] [phone] ABHILASH GARAY PATIENT MEDICARE (WNR) MEDICARE (M) PART A Feb 22, 2020 PART A [id number] [phone] ABHILASH GARAY PATIENT MEDICARE (WNR) MEDICARE (M) PART A Feb 22, 2020 PART A [id number] [phone] ABHILASH GARAY PATIENT MEDICARE (WNR) MEDICARE (M) PART A Feb 22, 2020 PART A [id number] ABHILASH GARAY PATIENT Selected Encounter This section includes the information on record at [place] for the Encounter. Date/Time Encounter Type Encounter Description Reason Provider Source Apr 06, 2024 10:30 AM OFFICE O/P EST MOD 30 MIN PRIMARY CARE/MEDICINE ICD-10-CM M54.50 Low back pain, unspecified STELEA,VESTA F E Encounter Template Text not used by [place] Assessments - Encounter Diagnoses This section includes the primary and secondary diagnoses documented for the Encounter. Date/Time Primary/Secondary Diagnosis Diagnosis Name Provider Source Apr 06, 2024 11:20 AM PRIMARY Low back pain, unspecified HERIBERTOLEAVESTA [facility] Apr 06, 2024 11:20 AM SECONDARY Encounter for immunization Carmen KEYS [facility] Apr 06, 2024 11:20 AM SECONDARY Essential (primary) hypertension HERIBERTOVESTA RICHEY Gilberto [facility] Apr 06, 2024 11:20 AM SECONDARY Hyperlipidemia, unspecified STELEAVESTA [facility] Apr 06, 2024 11:20 AM SECONDARY Hypothyroidism, unspecified STELEA,VESTA Gilberto [facility] Apr 06, 2024 11:20 AM SECONDARY Unspecified atrial fibrillation KIRILLAVESTA Gilberto [facility] Plan of Treatment: Future Appointments (+ 6 [...] Date/Time Appointment Type Appointme nt Facility Name Apr 07, 2024 03:30 PM [facility]ORY [facility] NONE [facility] Apr 08, 2024 01:00 PM AM[facility]ULATORY [facility] Apr 12, 2024 11:00 AM AMBULATORY [facility] Apr 15, 2024 10:00 AM AM[facility]ULATORY [facility] Apr 19, 2024 11:00 AM AM[facility]ULATORY [facility] Apr 22, 2024 09:00 AM AMBULATORY [facility] [place] May 03, 2024 01:00 PM AMBULATORY [facility] [place] May 17, 2024 01:00 PM AMBULATORY - REHAB MEDICIN E [facility] May 28, 2024 07:30 AM [facility]UL[facility]ORY [facility] [place] Jun 03, 2024 01:00 PM AMBULATORY [facility] [place] Jun 08, 2024 03:00 PM AMBULATORY - REHAB MEDICIN E [facility] Jun 11, 2024 08:00 AM AMBULATORY - MEDICINE [facility] [place] Jun 11, 2024 02:00 PM AMBULATORY - REHAB MEDICIN E [facility] Jun 14, 2024 10:30 AM [facility]UL[facility]ORY [facility]ICINE [facility] [place] [facility] Jun 15, 2024 10:00 AM AMBULATORY - REHAB MEDICIN E [facility] Jun 22, 2024 11:30 AM AMBULATORY - [facility]ICINE [facility] [place] [facility] Jun 22, 2024 03:00 PM AMBULATORY - REHAB MEDICIN E [facility] Jun 24, 2024 01:00 PM AMBULATORY [facility]ICINE [facility] [place] [facility] Jun 28, 2024 11:00 AM AMBULATORY - NONE [facility] [place] Jul 07, 2024 01:00 PM [facility] Active, Pending, and Scheduled Orders This section includes a listing of several types of active, pending, and scheduled orders, including clinic medications orders, diagnostic test orders, procedure orders and consult orders; where the start date of the order is 45 days before the date of the Encounter or 45 days after the date of theEncounter. The data comes from all [place] treatment facilities. Test Date/Time Test Type Test Details Facility Name Apr 08, 2024 12:00 AM Laboratory - Chemistry Order URINALYSIS URINE SP [facility] Apr 15, 2024 03:06 PM Consult Order COMMUNITY CARE-NEUROLOGY Cons Bundle Tier And Labeler's Choice [facility] Lab Results: +/- 30 days of the encounter This section includes the Chemistry and Hematology Lab Results on record with [place] for the patient. Radiology Reports and Pathology Reports are provided separately, in subsequent sections. Lab Results This section contains the Chemistry/Hematology Results that were resulted 30 days before or 30 daysafter the date of the Encounter. Date/Time Source Result Type Result - Unit Interpretation Reference Range Comment Apr 15, 2024 11:16 AM [facility] CPK Specimen Type: SERUM No comment entered. Ordering Provider: JOHN PAUL DENNISON Report Released Date/Time: Apr 15, 2024 10:55 AM Reporting Lab: [address] [address] Performing Lab: [address] [address] CPK 67 U/L 30-200 Mar 31, 2024 09:16 AM [facility] HEMOGLOBIN A1C PANEL Specimen Type: BLOOD Comment: [...] 08, 2023 02:27 PM Reporting Lab: [address] [address] Performing Lab: [address] [address] HEMOGLOBIN A1C 5.2 4.0-5.6 Mar 31, 2024 09:16 AM [facility] LIPID PANEL FASTING Specimen Type: SERUM No comment entered. Ordering Provider: GREGG HARMON Report Released Date/Time: Apr 08, 2023 02:27 PM Reporting Lab: [facility] [address] [facility] [address] Performing Lab: [address] [address] CHOLESTEROL 164 mg/dL TRIGLYCERIDE 102 mg/dL 0-150 LDL calculated 101 mg/dL 0-129 CHOL/HDL 3.8 HDL CHOLESTEROL 43 mg/dL 40-60 Mar 31, 2024 09:16 AM [facility] BASIC METABOLIC PANEL (fasting) Specime n Type: SERUM No comment entered. Ordering Provider: GREGG HARMON Report Released Date/Time: Apr 08, 2023 02:27 PM Reporting Lab: [address] [address] Performing Lab: [address] [address] UREA NITROGEN 20 mg/dL 7-25 GLUCOSE 100 mg/dL 65-100 SODIUM 140 mmol/L 135-145 POTASSIUM 4.2 mmol/L 3.5-5.0 CHLORIDE 109 mmol/L 100-110 CO2 23 meq/L 20-30 CREATININE, Serum 0.96 mg/dL 0.50-1.40 eGFR(CKD-EPI 2020) 86 mL/min >60 Mar 31, 2024 09:16 AM [facility] LIVER FUNCTION Specimen Type: SERUM No comment entered. Ordering Provider: GREGG HARMON Report Released Date/Time: Apr 08, 2023 02:27 PM Reporting Lab: [address] [address] Performing Lab: [address] [address] PROTEIN,TOTAL 6.0 g/dL 6.0-8.3 ALBUMIN 3.5 g/dL 3.5-5.0 ALKALINE PHOSPHATASE 70 U/L 40-150 AST 14 U/L 5-34 ALT 20 U/L BILIRUBIN, TOTAL 1.0 mg/dL 0.2-1.2 Mar 31, 2024 09:16 AM [facility] TSH Specimen Type: SERUM No comment entered. Ordering Provider: GREGG HARMON Report Released Date/Time: Apr 08, 2023 02:27 PM Reporting Lab: [place] [address] [facility] [address] Performing Lab: [facility] [address] [facility] [address] TSH 2.67 u[IU]/mL 0.35-5.00 Mar 31, 2024 09:16 AM [facility] CBC AND DIFF (AUTO) Specimen Type: BLOOD No comment entered. Ordering Provider: GREGG HARMON Report Released Date/Time: Apr 08, 2023 02:27 PM Reporting Lab: [facility] [address] [facility] [address] Performing Lab: [facility] [address] [address] WBC 4.01 10*3/uL L 4.50-11.00 RBC 4.67 [...] 0.0 0.0-0.0 NRBC, ABS 0.00 10*3/uL 0.00-0.00 Vital Signs: All taken on the encounter date This section contains inpatient and outpatient Vital Signs collected on the date of the Encounter. Date/Time Temperature Pulse Blood Pressure Respiratory Rate SP02 Pain Height Weight Body Mass Index Source Apr 06, 2024 10:37 AM 72 117/70 96 260 33 [facility] I[place] Immunizations: All administered on the encounter date This section contains immunizations associated to the Encounter. Immunization Series Date Issued Reaction Comments INFLUENZA, SPLIT VIRUS, TRIVALENT, PF Apr 06, 024 change his mind Social History: Smoking Status (Most current) and [...] Current Smoking Status Comment Odalis ity Apr 06, 2024 10:30 AM IN-TOBACCO NEVER USED [facility] Tobacco Use History This section includes a history of the smoking, or tobacco-related health factors, that were collected on or before the date of the Encounter. The data comes from the [facility] where the Encounter took place. Date/Time Smoking Status/Tobacco Use Comment F acility Aug 18, 2020 10:00 AM IN-TOBACCO NEVER USED [facility] Dec 15, 2018 12:14 PM IN-TOBACCO NEVER USED [facility] Jun 11, 2017 04:15 PM LIFETIME NON-TOBACCO USER [facility] Jan 01, 2016 11:12 AM LIFETIME NON-TOBACCO USER [facility] Jan 16, 2005 08:54 AM LIFETIME NON-SMOKER [facility] Nov 29, 2003 08:05 AM LIFETIME NON-SMOKER [facility] Jan 07, 2001 08:33 AM LIFETIME NON-SMOKER [facility] Encounter Notes: All associated encounter notes This section contains the clinical notes associated to the Encounter. Date/Time Encounter Note(s) Provider Source Apr 06, 2024 11:02 AM PHYSICIAN NOTE: LOCAL TITLE: MD NOTE STANDARD TITLE: PHYSICIAN NOTE DATE OF NOTE: APR 06, 2024@11:02 ENTRY DATE: APR 06, 2024@11:02:48 AUTHOR: VESTA BLISS EXP COSIGNER: URGENCY: STATUS: COMPLETED HISTORY OF PRESENT ILLNESS: ABHILASH GARAY, is a 69 yo MALE , who presents at the [facility] for follow up visit for chronic medical conditions. Active problems - Computerized Problem List is the source for the following: -Essential hypertension -Atrial fibrillation on anticoagulation -Chronic low back pain -Hyperlipidemia -Hypothyroidism -Gout -comanaged The following VA and Non-VA meds were reconciled with patient: Active Outpatient Medications (including Supplies): Issue Date Status Last Fill Active Outpatient Medications Refills Expiration 1) ACETAMINOPHEN 500MG TAB Qty: 100 for 30 ACTIVE Issu:02-17-24 days Sig: TAKE ONE TABLET BY MOUTH Refills: 1 Last:03-08-24 THREE TIMES DAILY NEEDED FOR PAIN Expr:02-17-25 2) ALLOPURINOL 100MG TAB Qty: 90 for 90 ACTIVE Issu:05-22-23 days Sig: TAKE ONE TABLET BY MOUTH Refills: 0 Last:03-06-24 ONCE DAILY FOR GOUT Expr:05-22-24 3) ATORVASTATIN CALCIUM 10MG TAB Qty: 90 ACTIVE Issu:11-03-23 for 90 days Sig: TAKE ONE TABLET BY Refills: 2 Last:03-21-24 MOUTH AT BEDTIME FOR HIGH CHOLESTEROL Expr:11-03-24 4) CAMPHOR/MENTHOL/METHYL SALICYLATE PATCH ACTIVE Issu:12-22-23 Qty: 60 for 60 days Sig: APPLY 1 Refills: 1 Last:03-06-24 PATCH TOPICALLY ONCE DAILY NEEDED Expr:12-22-24 FOR PAIN (REMOVE PATCH AFTER 8 TO 12 HOURS) 5) DILTIAZEM (EQV-CARDIZEM) 120MG 24HR CAP ACTIVE Issu:11-03-23 Qty: 90 for 90 days Sig: TAKE ONE Refills: 2 Last:04-03-24 CAPSULE BY MOUTH ONCE DAILY FOR HIGH Expr:11-03-24 BLOOD PRESSURE 6) KETOCONAZOLE 2% SHAMPOO Qty: 120 for 30 ACTIVE Issu:12-29-23 days Sig: SHAMPOO TO DAMP HAIR Refills: 4 Last:03-06-24 TOPICALLY DIRECTED BY PROVIDER Expr:12-29-24 LEAVE IN FOR 5 MINUTES AND RINSE OUT. USE WHEN SHAMPOOING 7) LEVOTHYROXINE NA (SYNTHROID) 125MCG TAB ACTIVE Issu:10-16-23 Qty: 90 for 90 days Sig: TAKE ONE Refills: 1 Last:04-03-24 TABLET BY MOUTH EVERY MORNING 30 Expr:10-16-24 MINUTES BEFORE BREAKFAST FOR THYROID TAKE ON AN EMPTY STOMACH WITH A FULL GLASS OF WATER 8) METOPROLOL SUCCINATE 50MG SA TAB Qty: ACTIVE Issu:11-03-23 90 for 90 days Sig: TAKE ONE TABLET Refills: 2 Last:03-06-24 BY MOUTH ONCE DAILY FOR BLOOD Expr:11-03-24 PRESSURE/HEART 9) POTASSIUM CITRATE 10MEQ SA TAB Qty: 100 ACTIVE Issu:02-25-24 for 25 days Sig: TAKE TWO TABLETS BY Refills: 0 Last:03-18-24 MOUTH TWICE DAILY Expr:02-25-25 10) RIVAROXABAN 20MG TAB Qty: 90 for 90 ACTIVE (S) Issu:11-03-23 days Sig: TAKE ONE TABLET BY MOUTH Refills: 1 Last:04-21-24 ONCE DAILY TO PREVENT BLOOD CLOTS Expr:11-03-24 (TAKE WITH FOOD) Start Date Active Non-VA Medications Refills Expiration 1) Non-VA FISH OIL 500MG DHA/EPA CAP,ORAL ACTIVE Sig: BY MOUTH DAILY 2) Non-VA MULTIVITAMIN/MINERALS CAP/TAB ACTIVE Si TABLET BY MOUTH EVERY DAY 3) Non-VA NIACIN TAB Sig: BY MOUTH ACTIVE 13 Total Medications ALLERGIES: ========= Patient has answered NKA LAB HISTORY: BMP, LFTs, hemoglobin A1c and TSH, GFRnormal limits LDL 101 white blood cells 4.01 and the rest of CBC normal limits HISTORY: PERIOD OF SERVICE - [employer] FROM Feb TO Mar COMBAT SERVICE INDICATED: No REVIEW OF SYSTEMS: No fever, chills, No chest pain shortness of breath at rest or with ambulation No cough or wheezing No abdominal pain nausea or vomiting Chronic low back pain with intermittent tingling and numbness in bilateral toes No headaches or dizziness PHYSICAL EXAMINATION: WD/obese seems to be in NAD S1-S2 positive, RRR ANDI, CTA bilateral Abdomen soft nontender to palpation, obese No edema lower extremities; b/l lower extremities varicose veins AAO x3; ambulates without help ASSESSMENT/PLAN: -Essential hypertension-blood pressure controlled today in office Continue current medications He admits of not monitoring blood pressure at home or watching his diet or exercise -Atrial fibrillation on anticoagulation-heart rate controlled Tolerating blood thinner without bleeding signs Continue current medications -Chronic low back pain-MRI done and the follow-up with orthopedics on March 15, 2024 The [place] states he was told he should have surgery but refused at this time and he will try to do massage therapyfirst appointment April 07, 2024 He states tried acupuncture, aqua therapy, physical therapy with not much improvement in symptoms He states will follow-up with orthopedics if he would change his mind in regards with having surgery -Hyperlipidemia-continue statins, I advised him to keep healthy diet and exercise as tolerated at least 150 minutes moderate activity weekly -Hypothyroidism with TSH normal limits continue levothyroxine -Gout-allopurinol preventive No acute exacerbation at this time -comanaged FOLLOW UP: ========= RTC - 6 months follow up for htn, a fib on ac, chronic low back pain Today's documentation was made using voice recognition software. This note may contain spelling/grammatical errors secondary to this software. Every effort is made to correct errors, but if mistakes are found they need to be taken in context. UPCOMING APPOINTMENTS: 04/07/2024 15:30 COM CARE-CIH MASSAGE THER 04/15/2024 10:00 CWM/NO/PAIN MD 1 04/16/2024 14:00 CWM/NO/ACUPUNCTURE R2 05/03/2024 13:00 COM CARE-VAS SURGERY 06/11/2024 08:00 CWM/SO/PODIATRY/ROSS 02/11/2025 11:00 NHM/OPTOMETRY/BORASKI No barriers; Patient understands and agrees to [...] JLV. Allergies/ADRs (Tool #5) FACILITY ALLERGY/ADR -------- [facility] NO KNOWN ALLERGIES [facility] [place] [facility] No Known Allergies [facility] NO KNOWN ALLERGIES Med Recon [...] display of VA prescriptions dispensed from another [place] or [facility] facility (remote) is limited to active outpatient prescription entries matched to National Drug File at the originating site and may not include some items such as investigational drugs, compounds, etc. NOT INCLUDED IN THIS LIST: Medications self-entered by the patient into personal health records (i.e. [employer]) are NOT included in this list. Non-VA medications documented outside this [place], remote inpatient orders (regardless of status) and remote clinic medications are NOT included in this list. The patient and provider must always discuss medications the patient is taking, regardless of where the medication was dispensed or obtained. OUTPT ACETAMINOPHEN 500MG TAB (Status = Active) TAKE ONE TABLET BY MOUTH THREE TIMES DAILY NEEDED FOR PAIN Rx# [id number] Last Released: 03/05/24 Qty/Days Supply: Rx Expiration Date: 02/17/25 Refills Remainin Indication: FOR PAIN OUTPT ALLOPURINOL 100MG TAB (Status = Active) TAKE ONE TABLET BY MOUTH ONCE DAILY FOR GOUT Rx# [id number] Last Released: 03/05/24 Qty/Days Supply: Rx Expiration Date: 05/22/24 Refills Remainin OUTPT ATORVASTATIN CALCIUM 10MG TAB (Status = Active) TAKE ONE TABLET BY MOUTH AT BEDTIME FOR HIGH CHOLESTEROL Rx# [id number] Last Released: 03/12/24 Qty/Days Supply: Rx Expiration Date: 11/03/24 Refills Remainin Indication: FOR HIGH CHOLESTEROL OUTPT CAMPHOR/MENTHOL/METHYL SALICYLATE PATCH (Status = Active) APPLY 1 PATCH TOPICALLY ONCE DAILY NEEDED FOR PAIN (REMOVE PATCH AFTER 8 TO 12 HOURS) Rx# [id number] Last Released: 03/05/24 Qty/Days Supply: 60/60 Rx Expiration Date: 12/22/24 Refills Remainin Indication: FOR PAIN OUTPT DILTIAZEM (EQV-CARDIZEM) 120MG 24HR CAP (Status = Active) TAKE ONE CAPSULE BY MOUTH ONCE DAILY FOR HIGH BLOOD PRESSURE Rx# [id number] Last Released: 03/30/24 Qty/Days Supply: 90/90 Rx Expiration Date: 11/03/24 Refills Remainin Indication: FOR HIGH BLOOD PRESSURE Non-VA FISH OIL 500MG DHA/EPA CAP,ORAL TAKE BY MOUTH DAILY OUTPT KETOCONAZOLE 2% SHAMPOO (Status = Active) SHAMPOO TO DAMP HAIR TOPICALLY DIRECTED BY PROVIDER LEAVE IN FOR 5 MINUTES AND RINSE OUT. USE WHEN SHAMPOOING Rx# [id number] Last Released: 03/05/24 Qty/Days Supply: 120/30 Rx Expiration Date: 12/29/24 Refills Remainin OUTPT LEVOTHYROXINE NA (SYNTHROID) 125MCG TAB (Status = Active) TAKE ONE TABLET BY MOUTH EVERY MORNING 30 MINUTES BEFORE BREAKFAST FOR THYROID TAKE ON AN EMPTY STOMACH WITH A FULL GLASS OF WATER Rx# [id number] Last Released: 03/26/24 Qty/Days Supply: 90/90 Rx Expiration Date: 10/16/24 Refills Remainin Indication: FOR THYROID OUTPT METOPROLOL SUCCINATE 50MG SA TAB (Status = Active) TAKE ONE TABLET BY MOUTH ONCE DAILY FOR BLOOD PRESSURE/HEART Rx# [id number] Last Released: 03/05/24 Qty/Days Supply: 90/90 Rx Expiration Date: 11/03/24 Refills Remainin Indication: ATRIAL FIBRILLATION Non-VA MULTIVITAMIN/MINERALS CAP/TAB TAKE ONE TABLET BY MOUTH EVERY DAY for the eyes Non-VA NIACIN TAB TAKE BY MOUTH OUTPT POTASSIUM CITRATE 10MEQ SA TAB (Status = Discontinued) TAKE TWO TABLETS BY MOUTH TWICE DAILY Rx# [id number] Last Released: 12/23/23 Qty/Days Supply: 100/25 Rx Expiration Date: 11/28/24 Refills Remainin Indication: KIDNEY STONES OUTPT POTASSIUM CITRATE 10MEQ SA TAB (Status = Active) TAKE TWO TABLETS BY MOUTH TWICE DAILY Rx# [id number] Last Released: 03/18/24 Qty/Days Supply: Rx Expiration Date: 02/25/25 Refills Remainin Indication: KIDNEY STONES OUTPT RIVAROXABAN 20MG TAB (Status = Active/Suspended) TAKE ONE TABLET BY MOUTH ONCE DAILY TO PREVENT BLOOD CLOTS (TAKE WITH FOOD) Rx# [id number] Last Released: 01/26/24 Qty/Days Supply: Rx Expiration Date: 11/03/24 Refills Remainin Indication: TO PREVENT BLOOD CLOTS SUPPLIES /yunior/ VESTA BLISS MD PRIMARY CARE PHYSICIAN Signed: 04/06/2024 11:21 VESTA BLISS [facility] Apr 06, 2024 10:38 AM PREVENTIVE MEDICIN E NURSING NOTE: LOCAL TITLE: CLINICAL REMINDERS/NURSING STANDARD TITLE: PREVENTIVE MEDICINE NURSING NOTE DATE OF NOTE: APR 06, 2024@10:38 ENTRY DATE: APR 06, 2024@10:38:12 AUTHOR: DESTINY KEYS COSIGNER: URGENCY: STATUS: COMPLETED Advance Directive Screen MH AD: Patient does not have a completed advance directive on file at any facility, VA or outside. S/he is not interested in completing one at this time. The patient received education about Advance Directives and written notification of his/her rights. BMI>30/>24.99 High Risk: Patient declines to discuss weight management. Patient declined weight discussion. Discussed revisiting at a future visit. Depression Screening: Perform PHQ-2 A PHQ-2 screen was performed. The score was 0 which is a negative screen for depression. Over the past two weeks, how often have you been bothered by the following problems? 1. Little interest or pleasure in doing things Not at all 2. Feeling down, depressed, or hopeless Not at all Pneumococcal PPSV23 (Pneumovax): The patient declines to receive the recommended dose of PPSV23 vaccine. Immunization: PNEUMOCOCCAL POLYSACCHARIDE PPV23 Refusal Reason: PATIENT DECISION Patient refuses all immunization(s) in the PneumoPPV group Date Documented: 04/06/24 10:38 Tobacco Use Screening: The patient has never used tobacco. Influenza Immunization: Influenza, Trivalent, Preservative Free (Fluarix-Syringe) Administered: INFLUENZA, SPLIT VIRUS, TRIVALENT, PF Date Administered: Apr 06, 2024 10:[address] Reporter: Mayomi Lot: [id number] Exp Date: Dec 20, 2024 [facility]: [id number] Admin Route/Site: INTRAMUSCULAR/LEFT DELTOID Dosage: 0.5mL Vaccine Information Statement(s): INFLUENZA(FLU) VACC(INACTIVATED OR RECOMBINANT)VIS Jan 26, 2021 (UPPER SORBIAN) Order By: Policy Administered By: Destiny Keys Comment: change his mind The Influenza Vaccine Information Statement (VIS) was reviewed with the patient/caregiver which lists the benefits and risks of the vaccine and the risks of not receiving the Influenza vaccine. The patient/caregiver denied any prior severe reaction to this vaccine or its components or a severe allergic reaction, such as anaphylaxis, to any vaccine or any injectable therapy. The patient/caregiver gave verbal consent to receive the vaccine. Alcohol Use Screen (AUDIT-C): Alcohol Screen: SCREEN FOR ALCOHOL (AUDIT-C) An alcohol screening test (AUDIT-C) was negative (score=0). 1. How often did you have a drink containing alcohol in the past year? Consider a drink to be a 12 ounce can or bottle of regular beer, 8 ounces of malt liquor, a 5 ounce glass of table wine, or a 1.5 ounce shot of liquor (like scotch, gin, or vodka). Never 2. How many drinks containing alcohol did you have on a typical day when you were drinking in the past year? Response not required due to responses to other questions. 3. How often did you have six or more drinks on one occasion in the past year? Response not required due to responses to other questions. COVID-19 Immunization: Refused Moderna Monovalent COVID-19 vaccine Immunization: COVID-19 (MODERNA), MRNA, LNP-S, PF, 50 MCG/0.5 ML (AGES 12+ YEARS) Refusal Reason: PATIENT DECISION Patient refuses all immunization(s) in the COVID-19 group Date Documented: 04/06/24 10:39 Herpes Zoster (Shingles) Vaccine: The patient declines to receive the recommended dose of zoster (shingles) vaccine. Immunization: ZOSTER RECOMBINANT Refusal Reason: PATIENT DECISION Patient refuses all immunization(s) in the ZOSTER group Date Documented: 04/06/24 10:39 Sexual Orientation: The patient thinks of their sexual orientation as: Straight or Heterosexual Avg Risk Colorectal Cancer Screen: AVERAGE RISK colorectal cancer screening is due based on information available to this clinical reminder Screening is due now. Colonoscopy consult has been ordered. See orders tab for details. /yunior/ DESTINY KEYS LPN Licensed Practical Nurse Signed: 04/06/2024 10:41 DESTINY KEYS MISHA Mar 25, 2024 10:01 AM ADMINISTRATIVE NOT E: LOCAL TITLE: ADMINISTRATIVE NOTE STANDARD TITLE: ADMINISTRATIVE NOTE DATE OF NOTE: MAR 25, 2024@10:01 ENTRY DATE: MAR 25, 2024@10:02:03 AUTHOR: JUNG BRANDON COSIGNER: URGENCY: STATUS: COMPLETED [facility] [address] [place] [phone] * ABHILASH GARAY [address], [place] [address] Date: MAR 25, 2024 re: This is a reminder of your upcoming PCP appt with VESTA BLISS Appointment Date: Mar@10:30 Appointment Type: In-person visit (X)Fasting blood work NON fasting blood work LEFT MESSAGE ON VOICEMAIL TO CONFIRM APPT AND LABWORK Sincerely, Office Staff for: VESTA BLISS Primary Care Provider [facility] [address] [place] [phone] T [phone] F [phone] Upcoming Appointments: 04/06/2024 10:30 CWM/SO/PACT EIGHT WH 04/07/2024 15:30 COM CARE-CIH MASSAGE THER 04/15/2024 10:00 CWM/NO/PAIN MD 1 04/16/2024 14:00 CWM/NO/ACUPUNCTURE R2 05/03/2024 13:00 COM CARE-VAS SURGERY 06/11/2024 08:00 CWM/SO/PODIATRY/ROSS 02/11/2025 11:00 NHM/OPTOMETRY/BORASKI APPOINTMENT ABBREVIATION BLANDON (SPOPC OR SO = [address]) (GOPC OR GO = [address]) (NHM or NO = [facility]) (VVC - Video Call) (Tel-X Telephone Visit) ( - Telehealth) /yunior/ JUNG LEÓN Signed: 03/25/2024 10:03 JUNG BRANDON SHELLMAN
--- OUTSIDE RECORDS SUMMARY | 2024-06-29 19:05 | XMS_ITS | Encounter Summary ---
Author Name [facility] [facility] [place] [facility] [place] Address [address] [place] [address] Care Team Providers Care Weekend Anchor Name Role Phone ABDIRAHMAN LAKE Primary [...] BASIC FAMIL Y Jun 24, 2009 [id number] [phone] ABHILASH GARAY PATIENT ANTHEM BCBS [place] FEP PREFERRED PROVIDER ORGANIZAT ION (PPO) FEP BASIC FAM Jun 24, 2009 112 [id number] [phone] ABHILASH GARAY PATIENT ANTHEM BCBS [place] FEP PREFERRED PROVIDER ORGANIZAT ION (PPO) FEP BASIC FAM Jun 24, 2009 112 [id number] [phone] ABHILASH GARAY PATIENT ANTHEM BCBS [place] FEP PREFERRED PROVIDER ORGANIZAT ION (PPO) FEP BASIC FAM Jun 24, 2009 112 [id number] [phone] ABHILASH GARAY PATIENT BCBS [place] FEP PREFERRED PROVIDER ORGANIZAT ION (PPO) FEP BASIC FAM Jun 24, 2009 112 [id number] [phone] ABHILASH GARAY PATIENT BCBS [place] FEP PREFERRED PROVIDER ORGANIZAT ION (PPO) BASIC FAMIL Y Jun 24, 2009 [id number] ABHILASH GARAY PATIENT [place] FEP PREFERRED PROVIDER ORGANIZAT ION (PPO) BASIC FAMIL Y Jun 24, 2009 [id number] ABHILASH GARAY PATIENT [place] FEP PREFERRED PROVIDER ORGANIZAT ION (PPO) BASIC FAMIL Y Jun 24, 2009 [id number] ABHILASH GARAY PATIENT [place] FEP DENTAL DENTAL INSURANCE BASIC Jul 12, 2009 DENTAL [id number] ABHILASH GARAY PATIENT [place] FEP PREFERRED PROVIDER ORGANIZAT ION (PPO) BASIC FAMIL Y Jun 24, 2009 [id number] ABHILASH GARAY PATIENT [place] FEP ([id number]) PRESCRIPT ION FEPRX Jun 24, 2009 [id number] [phone] ABHILASH GARAY PATIENT [place] FEP BCBS PRESCRIPT ION CAREM ARK FEPRX PLAN Nov 21, 2021 [id number] ABHILASH GARAY PATIENT [place] FEPRX PLAN PRESCRIPT ION CAREM ARK FEPRX Nov 21, 2021 [id number] ABHILASH GARAY PATIENT [place]-F EP BCBS PRESCRIPT ION FEP CAREM ARK Nov 21, 2021 [id number] ABHILASH GARAY PATIENT [place]-F EP BCBS PRESCRIPT ION FEP Jun 23, 2010 [id number] RUBI GARAYNETH PATIENT MEDICARE (WN) MEDICARE () PART A Feb 22, 2020 PART A [id number] ABHILASH GARAY PATIENT MEDICARE (WN) MEDICARE () PART A Feb 22, 2020 PART A [id number] ABHILASH GARAY PATIENT MEDICARE (WNR) MEDICARE (M) PART A Feb 22, 2020 PART A [id number] [phone] ABHILASH GARAY PATIENT MEDICARE (WNR) MEDICARE (M) PART A Feb 22, 2020 PART A [id number] ABHILASH GARAY PATIENT MEDICARE (WNR) MEDICARE (M) PART A Feb 22, 2020 PART A [id number] ABHILASH GARAY PATIENT Selected Encounter This section includes the information on record at [place] for the Encounter. Date/Time Encounter Type Encounter Description Reason Provider Source Apr 08, 2024 01:00 PM EXERCISE CLASS HEALTH/WELLBEING SRVS ICD-10-CM Y93.42 Activity, PAT Yoder IHFran Encounter Template Text not used by [place] Assessments - Encounter Diagnoses This section includes the primary and secondary diagnoses documented for the Encounter. Date/Time Primary/Secondary Diagnosis Diagnosis Name Provider Source Apr 09, 2024 07:55 AM PRIMARY Activity, PEDRO Yoder [facility] [place] [facility] Plan of [...] Appointment Type Appointme nt Facility Name Apr 12, 2024 11:00 AM AMBULATORY - MEDICINE [place] [facility] [facility] Apr 15, 2024 10:00 AM AMBULATORY - MEDICINE [facility] [place] [facility] Apr 19, 2024 11:00 AM AMBULATORY - MEDICINE [place] [facility] [place] [facility] Apr 22, 2024 09:00 AM AMBULATORY - MEDICINE [place] [facility] [place] [facility] May 03, 2024 01:00 PM AMBULATORY - MEDICINE [place] [facility] [place] [facility] May 17, 2024 01:00 PM AMBULATORY - REHAB [place]IN [place] May 28, 2024 07:30 AM AMBULATORY - MEDICINE [place] [facility] [place] [facility] Jun 03, 2024 01:00 PM AMBULATORY - MEDICINE [place] [facility] [place] [facility] Jun 08, 2024 03:00 PM AMBULATORY - RE[place] Jun 11, 2024 08:00 AM AM[facility]ULATORY - MEDICINE [facility] Jun 11, 2024 02:00 PM AMBULATORY - REHAB MEDICIN [place] Jun 14, 2024 10:30 AM AMBULATORY - MEDICINE [place] [facility] [facility] Jun 15, 2024 10:00 AM AMBULATORY - REHAB MEDICIN [place] Jun 22, 2024 11:30 AM AMBULATORY - MEDICINE [place] [facility] [facility] Jun 22, 2024 03:00 PM AMBULATORY - REHAB MEDICIN [place] Jun 24, 2024 01:00 PM AMBULATORY - MEDICINE [place] [facility] [place] [facility] Jun 28, 2024 11:00 AM AMBULATORY - NONE [place] [facility] [place] [facility] Jul 07, 2024 01:00 PM AMBULATORY - MEDICINE [facility] Jul 23, 2024 01:30 PM AMBULATORY - MEDICINE [place] C [facility] [place] [facility] Aug 04, 2024 10:00 AM AMBULATORY - MEDICINE [place] C [facility] [place] [facility] Active, Pending, and Scheduled Orders This section includes a listing of several types of active, pending, and scheduled orders, including clinic medications orders, diagnostic test orders, procedure orders and consult orders; where the start date of the order is 45 days before the date of the Encounter or 45 days after the date of theEncounter. The data comes from all [place] treatment facilities. Test Date/Time Test Type Test Details Facility Name Apr 08, 2024 12:00 AM Laboratory - Chemistry Order URINALYSIS URINE SP [place] Apr 15, 2024 03:06 PM Consult Order COMMUNITY CARE-NEUROLOGY Cons Final Inspector Paper's Choice [facility] [place] [facility] Lab Results: +/- 30 days of the encounter This section includes the Chemistry and Hematology Lab Results on record with [place] for the patient. Radiology Reports and Pathology Reports are provided separately, in subsequent sections. Lab Results This section contains the Chemistry/Hematology Results that were resulted 30 days before or 30 daysafter the date of the Encounter. Date/Time Source Result Type Result - Unit Interpretation Reference Range Comment Apr 15, 2024 11:16 AM [facility] CPK Specimen Type: SERUM No comment entered. Ordering Provider: JOHN PAUL DENNISON Report Released Date/Time: Apr 15, 2024 10:55 AM Reporting Lab: [address] [address] Performing Lab: [address] [address] CPK 67 U/L 30-200 Mar 31, 2024 09:16 AM [place] HEMOGLOBIN A1C PANEL Specimen Type: BLOOD Comment: [...] Apr 08, 2023 02:27 PM Reporting Lab: [address] [address] Performing Lab: [address] [address] HEMOGLOBIN A1C 5.2 4.0-5.6 Mar 31, 2024 09:16 AM [place] BASIC METABOLIC PANEL (fasting) Specime n Type: SERUM No comment entered. Ordering Provider: GREGG HARMON Report Released Date/Time: Apr 08, 2023 02:27 PM Reporting Lab: [address] [address] Performing Lab: [address] [address] UREA NITROGEN 20 mg/dL 7-25 GLUCOSE 100 mg/dL 65-100 SODIUM 140 mmol/L 135-145 POTASSIUM 4.2 mmol/L 3.5-5.0 CHLORIDE 109 mmol/L 100-110 CO2 23 meq/L 20-30 CREATININE, Serum 0.96 mg/dL 0.50-1.40 eGFR(CKD-EPI 2020) 86 mL/min >60 Mar 31, 2024 09:16 AM [place] LIPID PANEL FASTING Specimen Type: SERUM No comment entered. Ordering Provider: GREGG HARMON Report Released Date/Time: Apr 08, 2023 02:27 PM Reporting Lab: [address] [address] Performing Lab: [address] [address] CHOLESTEROL 164 mg/dL TRIGLYCERIDE 102 mg/dL 0-150 LDL calculated 101 mg/dL 0-129 CHOL/HDL 3.8 HDL CHOLESTEROL 43 mg/dL 40-60 Mar 31, 2024 09:16 AM [place] LIVER FUNCTION Specimen Type: SERUM No comment entered. Ordering Provider: GREGG HARMON Report Released Date/Time: Apr 08, 2023 02:27 PM Reporting Lab: [address] [address] Performing Lab: [address] [address] PROTEIN,TOTAL 6.0 g/dL 6.0-8.3 ALBUMIN 3.5 g/dL 3.5-5.0 ALKALINE PHOSPHATASE 70 U/L 40-150 AST 14 U/L 5-34 ALT 20 U/L BILIRUBIN, TOTAL 1.0 mg/dL 0.2-1.2 Mar 31, 2024 09:16 AM [place] TSH Specimen Type: SERUM No comment entered. Ordering Provider: GREGG HARMON Report Released Date/Time: Apr 08, 2023 02:27 PM Reporting Lab: [address] [address] Performing Lab: [address] [address] TSH 2.67 u[IU]/mL 0.35-5.00 Mar 31, 2024 09:16 AM [place] CBC AND DIFF (AUTO) Specimen Type: BLOOD No comment entered. Ordering Provider: GREGG HARMON Report Released Date/Time: Apr 08, 2023 02:27 PM Reporting Lab: [facility] [address] [address] Performing Lab: [facility] [address] [facility] [address] WBC 4.01 10*3/uL L 4.50-11.00 RBC 4.67 [...] 08, 2023 09:12 AM VA-TOBACCO NEVER USED [facility] Tobacco Use History This section includes a history of the smoking, or tobacco-related health factors, that were collected on or before the date of the Encounter. The data comes from the [place] facility where the Encounter took place. Date/Time Smoking Status/Tobacco Use Comment Gilberto boston Aug 09, 2021 09:20 AM VA-TOBACCO NEVER USED [facility] Encounter Notes: All associated encounter notes This section contains the clinical notes associated to the Encounter. Date/Time Encounter Note(s) Provider Source Apr 08, 2024 01:00 PM RECREATIONAL THERA PY NOTE: LOCAL TITLE: YOGA WELLBEING STANDARD TITLE: RECREATIONAL THERAPY NOTE DATE OF NOTE: APR 08, 2024@13:00 ENTRY DATE: APR 09, 2024@07:54:26 AUTHOR: MARY KATE MOORE EXP COSIGNER: URGENCY: [...] triangle pose, wide leg forward bend variations, [place] 2, extended side angle pose, [place] 1, plank, cobra, locust, downward facing dog, wisdom pose, contralateral limb raises, head to knee pose, bridge, reclined twist, knees to chest; Systematic Relaxation; and Gratitude. Modifications were geared toward the [place]'s individual needs and preferences. was one of six participants in Group Yoga, fully engaging in all the postures offered and modifying according to individual needs. used yoga blocks and a yoga belt for support as needed and used breath as a tool to enhance practice. will return to class as personal scheduling allows. /yunior/ NINO IBANEZ-500 Supervisor Tumblers Signed: 04/09/2024 08:04 [facility]
--- OUTSIDE RECORDS SUMMARY | 2024-06-29 19:05 | XMS_ITS | Encounter Summary ---
Author Name [facility] [place] Address [address] [place] [address] Care Team Providers Care Supervisor Furnace Process Name Role Phone ABDIRAHMAN LAKE Primary [...] BASIC FAMIL Y Jun 24, 2009 [id number] [phone] ABHILASH GARAY PATIENT ANTHEM BCBS [place] FEP PREFERRED PROVIDER ORGANIZAT ION (PPO) FEP BASIC FAM Jun 24, 2009 [id number] [phone] ABHILASH GARAY PATIENT ANTHEM BCBS [place] FEP PREFERRED PROVIDER ORGANIZAT ION (PPO) FEP BASIC FAM Jun 24, 2009 [id number] [phone] ABHILASH GARAY PATIENT ANTHEM [place] F[place] PREFERRED PROVIDER ORGANIZAT ION (PPO) FEP BASIC FAM Jun 24, 2009 [id number] [phone] ABHILASH GARAY PATIENT [place] FEP PREFERRED PROVIDER ORGANIZAT ION (PPO) FEP BASIC FAM Jun 24, 2009 112 [id number] [phone] RUBI GARAYNETH PATIENT BCBS [place] FEP PREFERRED PROVIDER ORGANIZAT ION (PPO) BASIC FAMIL Y Jun 24, 2009 [id number] [phone] RUBI GARAYNETH PATIENT [place] FEP PREFERRED PROVIDER ORGANIZAT ION (PPO) BASIC FAMIL Y Jun 24, 2009 [id number] RUBI GARAYNETH PATIENT [place] FEP PREFERRED PROVIDER ORGANIZAT ION (PPO) BASIC FAMIL Y Jun 24, 2009 [id number] [phone] RUBI GARAYNETH PATIENT [place] FEP DENTAL DENTAL INSURANCE BASIC Jul 12, 2009 DENTAL [id number] [phone] DEJAHDANIKARUBI ACEVESNETH PATIENT [place] FEP PREFERRED PROVIDER ORGANIZAT ION (PPO) BASIC FAMIL Y Jun 24, 2009 [id number] ABHILASH GARAY PATIENT [place] FEP ([id number]) PRESCRIPT ION FEPRX Jun 24, 2009 [id number] [phone] ABHIALSH GARAY PATIENT [place] FEP BCBS PRESCRIPT ION CAREM ARK FEPRX PLAN Nov 21, 2021 [id number] ABHILASH GARAY PATIENT [place] FEPRX PLAN PRESCRIPT ION CAREM ARK FEPRX Nov 21, 2021 [id number] [phone] ABHILASH GARAY PATIENT [place]-F EP BCBS PRESCRIPT ION FEP CAREM ARK Nov 21, 2021 [id number] ABHILASH GARAY PATIENT [place]-F EP BCBS PRESCRIPT ION FEP Jun 23, 2010 [id number] RUBI GARAYNETH PATIENT MEDICARE ([facility]) MEDICARE () PART A Feb 22, 2020 PART A [id number] ABHILASH GARAY PATIENT MEDICARE (WNR) MEDICARE (M) PART A Feb 22, 2020 PART A [id number] [phone] ABHILASH GARAY PATIENT MEDICARE (WNR) MEDICARE (M) PART A Feb 22, 2020 PART A [id number] ABHILASH GARAY PATIENT MEDICARE (WNR) MEDICARE (M) PART A Feb 22, 2020 PART A [id number] ABHILASH GARAY PATIENT MEDICARE (WNR) MEDICARE (M) PART A Feb 22, 2020 PART A [id number] [id number] [phone] ABHILASH GARAY PATIENT Selected Encounter This section includes the information on record at [place] for the Encounter. Date/Time Encounter Type Encounter Description Reason Pro vider Source Mar 23, 2024 12:12 PM Outpatient Encounter ADMIN PAT ACTIVTIES (MASNONCT) [...] 25, 2024 01:00 PM AMBULATORY - MEDICINE [facility] C [facility]L [place] [facility] Apr 06, 2024 10:30 AM AMBULATORY - MEDICINE [facility] Apr 07, 2024 03:30 PM AMBULATORY - NONE [place] [facility]L [place] [facility] Apr 08, 2024 01:00 PM AMBULATORY - MEDICINE [facility] C [facility]L [place] [facility] Apr 12, 2024 11:00 AM AMBULATORY [place]ICINE [place] [facility] [place] [facility] Apr 15, 2024 10:00 AM AMBULATORY - MEDICINE [place] [facility] [place] [facility] Apr 19, 2024 11:00 AM AMBULATORY - MEDICINE [facility] [place] [facility] Apr 22, 2024 09:00 AM AMBULATORY - MEDICINE [facility] C [facility]L [place] [facility] May 03, 2024 01:00 PM AMBULATORY - MEDICINE [facility] C [facility]L [place] [facility] May 17, 2024 01:00 PM AMBULATORY - REHAB [facility] May 28, 2024 07:30 AM AMBULATORY - MEDICINE [facility] C N[facility]L [place] [facility] Jun 03, 2024 01:00 PM AMBULATORY - MEDICINE [facility] C [place]L [place] [facility] Jun 08, 2024 03:00 PM AMBULATORY - REHAB MEDICIN [facility] Jun 11, 2024 08:00 AM AMBULATORY - MEDICINE [facility] Jun 11, 2024 02:00 PM AMBULATORY - REHAB MEDICIN [facility] Jun 14, 2024 10:30 AM AMBULATORY - MEDICINE [place] C [place] [place] [facility] Jun 15, 2024 10:00 AM AMBULATORY - REHAB [facility] Jun 22, 2024 11:30 AM AMBULATORY - MEDICINE [place] C [place]L [place] [facility] Jun 22, 2024 03:00 PM AMBULATORY - REHAB [facility] Jun 24, 2024 01:00 PM AMBULATORY - MEDIC[facility] Active, Pending, and Scheduled Orders This section includes a listing of several types of active, pending, and scheduled orders, including clinic medications orders, diagnostic test orders, procedure orders and consult orders; where the start date of the order is 45 days before the date of the Encounter or 45 days after the date of theEncounter. The data comes from all [place] treatment facilities. Test Date/Time Test Type Test Details Facility Name Apr 08, 2024 12:00 AM Laboratory - Chemistry Order URINALYSIS URINE SP [place] Apr 15, 2024 03:06 PM Consult Order COMMUNITY CARE-NEUROLOGY Cons Bulk Sausage Casing Tier Off[facility] Lab Results: +/- 30 days of the encounter This section includes the Chemistry and Hematology Lab Results on record with CT for the patient. Radiology Reports and Pathology Reports are provided separately, in subsequent sections. Lab Results This section contains the Chemistry/Hematology Results that were resulted 30 days before or 30 daysafter the date of the Encounter. Date/Time Source Result Type Result - Unit Interpretation Reference Range Comment Apr 15, 2024 11:[address] [facility] [facility] CPK Specimen Type: SERUM No comment entered. Ordering Provider: JOHN PAUL DENNISON Report Released Date/Time: Apr 15, 2024 10:55 AM Reporting Lab: [facility] [address] [address] Performing Lab: [facility] [address] [address] CPK 67 U/L 30-200 Mar 31, 2024 09:16 AM [place] HEMOGLOBIN A1C PANEL Specimen Type: BLOOD Comment: Values obtained from A1C measurements can vary. For atypical A1C assays, a reported value of 7.0 could actually be between 6.72 and 7.28 if measured by a reference method. A reported value of 9.0 could actually be between 8.73 and 9.27. Ref: http://www.ngs p.org/CAPdata. asp Ordering Provider: RGEGG HARMON Report Released Date/Time: Apr 08, 2023 02:27 PM Reporting Lab: [address] [address] Performing Lab: [facility] [address] [address] HEMOGLOBIN A1C 5.2 4.0-5.6 Mar 31, 2024 09:16 AM [place] TSH Specimen Type: SERUM No comment entered. Ordering Provider: GREGG HARMON Report Released Date/Time: Apr 08, 2023 02:27 PM Reporting Lab: [facility] [address] [address] Performing Lab: [facility] [address] [address] TSH 2.67 u[IU]/mL 0.35-5.00 Mar 31, 2024 09:16 AM [place] LIPID PANEL FASTING Specimen Type: SERUM No comment entered. Ordering Provider: GREGG HARMON Report Released Date/Time: Apr 08, 2023 02:27 PM Reporting Lab: [facility] [address] [address] Performing Lab: [address] [address] CHOLESTEROL 164 mg/dL TRIGLYCERIDE 102 mg/dL 0-150 LDL calculated 101 mg/dL 0-129 CHOL/HDL 3.8 HDL CHOLESTEROL 43 mg/dL 40-60 Mar 31, 2024 09:16 AM [place] BASIC METABOLIC PANEL (fasting) Specime n Type: SERUM No comment entered. Ordering Provider: GREGG HARMON Report Released Date/Time: Apr 08, 2023 02:27 PM Reporting Lab: [address] [address] Performing Lab: [address] [address] UREA NITROGEN 20 mg/dL 7-25 GLUCOSE 100 mg/dL 65-100 SODIUM 140 mmol/L 135-145 POTASSIUM 4.2 mmol/L 3.5-5.0 CHLORIDE 109 mmol/L 100-110 CO2 23 meq/L 20-30 CREATININE, Serum 0.96 mg/dL 0.50-1.40 eGFR(CKD-EPI 2020) 86 mL/min >60 Mar 31, 2024 09:16 AM [place] LIVER FUNCTION Specimen Type: SERUM No comment entered. Ordering Provider: GREGG HARMON Report Released Date/Time: Apr 08, 2023 02:27 PM Reporting Lab: [address] [address] Performing Lab: [address] [address] PROTEIN,TOTAL 6.0 g/dL 6.0-8.3 ALBUMIN 3.5 g/dL 3.5-5.0 ALKALINE PHOSPHATASE 70 U/L 40-150 AST 14 U/L 5-34 ALT 20 U/L BILIRUBIN, TOTAL 1.0 mg/dL 0.2-1.2 Mar 31, 2024 09:16 AM [place] CBC AND DIFF (AUTO) Specimen Type: BLOOD No comment entered. Ordering Provider: GREGG HARMON Report Released Date/Time: Apr 08, 2023 02:27 PM Reporting Lab: [address] [address] Performing Lab: [address] [address] WBC 4.01 10*3/uL L 4.50-11.00 RBC 4.67 [...] 08, 2023 09:12 AM VA-TOBACCO NEVER USED CT CNTR [place] [facility] Tobacco Use History This section includes a history of the smoking, or tobacco-related health factors, that were collected on or before the date of the Encounter. The data comes from the CT facility where the Encounter took place. Date/Time Smoking Status/Tobacco Use Comment F acility Aug 09, 2021 09:[address]-TOBACCO NEVER USED CT CNTRL [place] [facility] Encounter Notes: All associated encounter notes This section contains the clinical notes associated to the Encounter. Date/Time Encounter Note(s) Provider Source Mar 23, 2024 12:12 PM ADMINISTRATIVE NOTE: LOCAL TITLE: CCC: SCHEDULING ADMINISTRATION STANDARD TITLE: ADMINISTRATIVE NOTE DATE OF NOTE: MAR 23, 2024@12:12:49 ENTRY DATE: MAR 23, 2024@12:12:50 AUTHOR: STEPHANY CHURCHILL EXP COSIGNER: URGENCY: STATUS: COMPLETED CCC: SCHEDULING ADMINISTRATION Has ADDENDA Patient Demographics Patient Name: ABHILASH GARAY Patient Primary Phone: [phone] Patient Primary Address: [address] [place] [id number] Patient : 1955 Patient Age: 69 Caller/Recipient Relation to Patient: Self Administrative Administrative Note Reason: Other Administrative Note Comments: [place] stated that their primary care provider, Dr. Reyes at [address] [place] [address] Drive in [place], [place], prescribed a cream for a face rash and [place] would like to know how to obtain it through the CT. [place] was driving and unable to write down the fax number for CT primary care on [facility]. [place] is requesting a call back tomorrow. did not want to speak with a nurse about the rash on their face or any other symptoms. IMPORTANT: This note was created by [facility] Clinical Contact Center staff. Please do not alert the staff member by adding them as a signer for future communications. Alerts are not monitored by this user. /yunior/ STEPHANY CHURCHILL VISN [facility] Signed: 03/23/2024 12:12 Receipt Acknowledged By: 03/25/2024 10:16 /es/ BREANNA BAKER RN-BC REGISTERED NURSE 03/25/2024 15:31 /es/ EUGENIE SALVADOR LPN Licensed Practical Nurse 03/25/2024 ADDENDUM STATUS: COMPLETED Called and left voicemail requesting call back to PACT at [phone] to discuss his inquiry /es/ BREANNA BAKER RN-BC REGISTERED NURSE Signed: 03/25/2024 10:19 STEPHANY CHURCHILL [facility]
--- OUTSIDE RECORDS SUMMARY | 2024-06-29 19:05 | XMS_ITS | Encounter Summary ---
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 Name Role Phone ABDIRAHMAN LAKE [...] BASIC FAMIL Y Jun 24, 2009 112 [id number] [phone] ABHILASH GARAY PATIENT ANTHEM BCBS [place] FEP PREFERRED PROVIDER ORGANIZAT ION (PPO) FEP BASIC FAM Jun 24, 2009 112 [id number] [phone] ABHILASH GARAY PATIENT ANTHEM BCBS [place] FEP PREFERRED PROVIDER ORGANIZAT ION (PPO) FEP BASIC FAM Jun 24, 2009 112 [id number] [phone] ABHILASH GARAY PATIENT ANTHEM [place]BS [place] FEP PREFERRED PROVIDER ORGANIZAT ION (PPO) FEP BASIC FAM Jun 24, 2009 112 [id number] [phone] ABHILASH GARAY PATIENT BCBS [place] FEP PREFERRED PROVIDER ORGANIZAT ION (PPO) FEP BASIC FAM Jun 24, 2009 112 [id number] [phone] ABHILASH GARAY PATIENT BCBS [place] FEP PREFERRED PROVIDER ORGANIZAT ION (PPO) BASIC FAMIL Y Jun 24, 2009 [id number] ABHILASH GARAY PATIENT [place] FEP PREFERRED PROVIDER ORGANIZAT ION (PPO) BASIC FAMIL Y Jun 24, 2009 112 [id number] [phone] ABHILASH GARAY PATIENT [place] FEP PREFERRED PROVIDER ORGANIZAT ION (PPO) BASIC FAMIL Y Jun 24, 2009 [id number] ABHILASH GARAY PATIENT [place] FEP DENTAL DENTAL INSURANCE BASIC Jul 12, 2009 DENTAL [id number] [phone] ABIHLASH GARAY PATIENT [place] FEP PREFERRED PROVIDER ORGANIZAT ION (PPO) BASIC FAMIL Y Jun 24, 2009 112 [id number] ABHILASH GARAY PATIENT [place] FEP ([id number]) PRESCRIPT ION FEPRX Jun 24, 2009 [id number] [phone] ABHILASH GARAY PATIENT [place] FEP BCBS PRESCRIPT ION CAREM ARK FEPRX PLAN Nov 21, 2021 [id number] ABHILASH GARAY PATIENT [place] FEPRX PLAN PRESCRIPT ION CAREM ARK FEPRX Nov 21, 2021 [id number] ABHILASH GARAY PATIENT [place]-F EP BCBS PRESCRIPT ION FEP CAREM ARK Nov 21, 2021 [id number] ABHILASH GARAY PATIENT [place]-F EP BCBS PRESCRIPT ION FEP Jun 23, 2010 [id number] ABHILASH GARAY PATIENT MEDICARE (WN) MEDICARE () PART A Feb 22, 2020 PART A [id number] [phone] ABHILASH GARAY PATIENT MEDICARE ([facility]) MEDICARE () PART A Feb 22, 2020 PART A [id number] ABHILASH GARAY PATIENT MEDICARE (WNR) MEDICARE (M) PART A Feb 22, 2020 PART A [id number] ABHILASH GARAY PATIENT MEDICARE (WNR) MEDICARE (M) PART A Feb 22, 2020 PART A [id number] ABHILASH GARAY PATIENT MEDICARE (WNR) MEDICARE (M) PART A Feb 22, 2020 PART A [id number] ABHILASH GARAY PATIENT Selected Encounter This section includes the information on record at [place] for the Encounter. Date/Time Encounter Type Encounter Description Reason Pro vider Source Apr 06, 2024 10:30 AM Outpatient Encounter EVENT (HISTORICAL) IHE Encounter [...] 07, 2024 03:30 PM AM[place]ORY [place]ONE [place] [facility] [facility] [place] [facility] Apr 08, 2024 01:00 PM AM[place]ULATORY [place] [facility] [place] [facility] Apr 12, 2024 11:00 AM AM[place] [facility] [facility] [place] [facility] Apr 15, 2024 10:00 AM [place] [facility] [place] [facility] Apr 19, 2024 11:00 AM AM[place]ATORY [place] [place] [facility] Apr 22, 2024 09:00 AM AM[place]ATORY [place] [place] [facility] May 03, 2024 01:00 PM AMBULATORY - MEDICINE [facility] [place] [facility] May 17, 2024 01:00 PM AMBULATORY - REHAB [facility] May 28, 2024 07:30 AM AM[place]ULATORY [place]IC[place] [place] [facility] Jun 03, 2024 01:00 PM AM[place]ULATORY [place]IC[place] [facility] [facility] [place] [facility] Jun 08, 2024 03:00 PM AMBULATORY - [facility]AB [facility] Jun 11, 2024 08:00 AM [facility]ORY - [place]IC[place] [facility] [place] Jun 11, 2024 02:00 PM AMBULATORY - REHAB [facility] Jun 14, 2024 10:30 AM AM[place]ULATORY [place]ICINE [place] [facility] [place] [facility] Jun 15, 2024 10:00 AM AMBULATORY - REHAB [facility] Jun 22, 2024 11:30 AM AMBULATORY - MEDICINE [place] [facility] [place] [facility] Jun 22, 2024 03:00 PM AMBULATORY - REHAB [facility] Jun 24, 2024 01:00 PM AMBULATORY [place]ICINE [place] [facility] [place] [facility] Jun 28, 2024 11:00 AM [facility] [place] [facility] Jul 07, 2024 01:00 PM [facility] Active, Pending, and Scheduled Orders This section includes a listing of several types of active, pending, and scheduled orders, including clinic medications orders, diagnostic test orders, procedure orders and consult orders; where the start date of the order is 45 days before the date of the Encounter or 45 days after the date of theEncounter. The data comes from all [place] treatment facilities. Test Date/Time Test Type Test Details Facility Name Apr 08, 2024 12:00 AM Laboratory - Chemistry Order URINALYSIS URINE SP [facility] Apr 15, 2024 03:06 PM Consult Order COMMUNITY CARE-NEUROLOGY Cons Religious Education Director's [facility] Lab Results: +/- 30 days of the encounter This section includes the Chemistry and Hematology Lab Results on record with [place] for the patient. Radiology Reports and Pathology Reports are provided separately, in subsequent sections. Lab Results This section contains the Chemistry/Hematology Results that were resulted 30 days before or 30 daysafter the date of the Encounter. Date/Time Source Result Type Result - Unit Interpretation Reference Range Comment Apr 15, 2024 11:16 AM [facility] CPK Specimen Type: SERUM No comment entered. Ordering Provider: JOHN PAUL DENNISON Report Released Date/Time: Apr 15, 2024 10:55 AM Reporting Lab: [facility]N [facility] [address] [address] Performing Lab: [facility]USN [facility]ILDRENUSETS [address] [address] CPK 67 U/L 30-200 Mar 31, 2024 09:16 AM [facility] HEMOGLOBIN A1C PANEL Specimen Type: BLOOD Comment: [...] Apr 08, 2023 02:27 PM Reporting Lab: [facility]USN [address] [address] Performing Lab: [facility]USN [facility]ILDRENUSE[address] [address] HEMOGLOBIN A1C 5.2 4.0-5.6 Mar 31, 2024 09:16 AM [facility] TSH Specimen Type: SERUM No comment entered. Ordering Provider: GREGG HARMON Report Released Date/Time: Apr 08, 2023 02:27 PM Reporting Lab: [facility]TRN [facility]USE[facility] [address] [address] Performing Lab: [facility]USN [facility]ILDRENUSETS [address] [address] TSH 2.67 u[IU]/mL 0.35-5.00 Mar 31, 2024 09:16 AM [facility] LIPID PANEL FASTING Specimen Type: SERUM No comment entered. Ordering Provider: GREGG HARMON Report Released Date/Time: Apr 08, 2023 02:27 PM Reporting Lab: [facility]ENTERTRN [facility]ILDRENUSETS [address] [address] Performing Lab: [facility]AMPUSN [address] [address] CHOLESTEROL 164 mg/dL TRIGLYCERIDE 102 mg/dL 0-150 LDL calculated 101 mg/dL 0-129 CHOL/HDL 3.8 HDL CHOLESTEROL 43 mg/dL 40-60 Mar 31, 2024 09:16 AM [facility] BASIC METABOLIC PANEL (fasting) Specime n Type: SERUM No comment entered. Ordering Provider: GREGG HARMON Report Released Date/Time: Apr 08, 2023 02:27 PM Reporting Lab: [address] [address] Performing Lab: [address] [address] UREA NITROGEN 20 mg/dL 7-25 GLUCOSE 100 mg/dL 65-100 SODIUM 140 mmol/L 135-145 POTASSIUM 4.2 mmol/L 3.5-5.0 CHLORIDE 109 mmol/L 100-110 CO2 23 meq/L 20-30 CREATININE, Serum 0.96 mg/dL 0.50-1.40 eGFR(CKD-EPI 2020) 86 mL/min >60 Mar 31, 2024 09:16 AM [facility] LIVER FUNCTION Specimen Type: SERUM No comment entered. Ordering Provider: GREGG HARMON Report Released Date/Time: Apr 08, 2023 02:27 PM Reporting Lab: [address] [address] Performing Lab: [address] [address] PROTEIN,TOTAL 6.0 g/dL 6.0-8.3 ALBUMIN 3.5 g/dL 3.5-5.0 ALKALINE PHOSPHATASE 70 U/L 40-150 AST 14 U/L 5-34 ALT 20 U/L BILIRUBIN, TOTAL 1.0 mg/dL 0.2-1.2 Mar 31, 2024 09:16 AM [facility] CBC AND DIFF (AUTO) Specimen Type: BLOOD No comment entered. Ordering Provider: GREGG HARMON Report Released Date/Time: Apr 08, 2023 02:27 PM Reporting Lab: [address] [address] Performing Lab: [address] [address] WBC 4.01 10*3/uL L 4.50-11.00 RBC 4.67 [...] 08, 2023 09:12 AM VA-TOBACCO NEVER USED [facility] Tobacco Use History This section includes a history of the smoking, or tobacco-related health factors, that were collected on or before the date of the Encounter. The data comes from the [place] facility where the Encounter took place. Date/Time Smoking Status/Tobacco Use Comment F acility Aug 09, 2021 09:20 AM VA-TOBACCO NEVER USED [facility]
--- OUTSIDE RECORDS SUMMARY | 2024-06-29 19:05 | XMS_ITS ---
Author Name [facility] [place] Address [address] [place] [address] Care Team Providers Care Trace Clerk Name Role Phone ABDIRAHMAN LAKE Primary [...] BASIC FAMIL Y Jun 24, 2009 [id number] [phone] ABHILASH GARAY PATIENT ANTHEM BCBS [place] FEP PREFERRED PROVIDER ORGANIZAT ION (PPO) FEP BASIC FAM Jun 24, 2009 112 [id number] [phone] ABHILASH GARAY PATIENT ANTHEM BCBS [place] FEP PREFERRED PROVIDER ORGANIZAT ION (PPO) FEP BASIC FAM Jun 24, 2009 112 [id number] [phone] ABHILASH GARAY PATIENT ANTHEM [place] PREFERRED PROVIDER ORGANIZAT ION (PPO) FEP BASIC FAM Jun 24, 2009 112 [id number] [phone] ABHILASH GARAY PATIENT [place] FEP PREFERRED PROVIDER ORGANIZAT ION (PPO) FEP BASIC FAM Jun 24, 2009 112 [id number] [phone] ABHILASH GARAY PATIENT [place]BS [place] FEP PREFERRED PROVIDER ORGANIZAT ION (PPO) BASIC FAMIL Y Jun 24, 2009 [id number] ABHILASH GARAY PATIENT [place] FEP PREFERRED PROVIDER ORGANIZAT ION (PPO) BASIC FAMIL Y Jun 24, 2009 [id number] [phone] ABHILASH GARAY PATIENT [place] FEP PREFERRED PROVIDER ORGANIZAT ION (PPO) BASIC FAMIL Y Jun 24, 2009 [id number] ABHILASH GARAY PATIENT [place] FEP DENTAL DENTAL INSURANCE BASIC Jul 12, 2009 DENTAL [id number] [phone] ABHILASH GARAY PATIENT [place] FEP PREFERRED PROVIDER ORGANIZAT ION (PPO) BASIC FAMIL Y Jun 24, 2009 112 [id number] ABHILASH GARAY PATIENT [place] FEP ([id number]) PRESCRIPT ION FEPRX Jun 24, 2009 [id number] [phone] ABHILASH GARAY PATIENT [place] FEP BCBS PRESCRIPT ION CAREM ARK FEPRX PLAN Nov 21, 2021 [id number] ABHILASH GARAY PATIENT [place] FEPRX PLAN PRESCRIPT ION CAREM ARK FEPRX Nov 21, 2021 [id number] ABHILASH GARAY PATIENT [place]-F EP BCBS PRESCRIPT ION FEP CAREM ARK Nov 21, 2021 [id number] ABHILASH GARAY PATIENT [place]-F EP BCBS PRESCRIPT ION FEP Jun 23, 2010 [id number] ABHILASH GARAY PATIENT MEDICARE (WN) MEDICARE () PART A Feb 22, 2020 PART A [id number] [phone] ABHILASH GARAY PATIENT MEDICARE ([facility]) MEDICARE () PART A Feb 22, 2020 PART A [id number] ABHILASH GARAY PATIENT MEDICARE (WNR) MEDICARE (M) PART A Feb 22, 2020 PART A [id number] [phone] ABHILASH GARAY PATIENT MEDICARE (WNR) MEDICARE (M) PART A Feb 22, 2020 PART A [id number] ABHILASH GARAY PATIENT MEDICARE (WNR) MEDICARE (M) PART A Feb 22, 2020 PART A [id number] ABHILASH GARAY PATIENT Selected Encounter This section includes the [place] for the Encounter. Date/Time Encounter Type Encounter Description Reason Pro vider Source Apr 06, 2024 12:00 AM Outpatient Encounter EVENT (HISTORICAL) IHE [...] 07, 2024 03:30 PM AMBULATORY - NONE [place] [facility] [place] [facility] Apr 08, 2024 01:00 PM AMBULATORY - MEDICINE [place] [place] [facility] Apr 12, 2024 11:00 AM AMBULATORY - MEDICINE [place] [place] [facility] Apr 15, 2024 10:00 AM AMBULATORY - MEDICINE [place] [facility] [place] [facility] Apr 19, 2024 11:00 AM AMBULATORY - MEDICINE [place] [place] [facility] Apr 22, 2024 09:00 AM AMBULATORY - MEDICINE [place] [place] [facility] May 03, 2024 01:00 PM AMBULATORY - MEDICINE [facility] [place] [facility] May 17, 2024 01:00 PM AMBULATORY - REHAB [facility] May 28, 2024 07:30 AM AMBULATORY - MEDICINE [place] [place] [facility] Jun 03, 2024 01:00 PM AMBULATORY - MEDICINE [place] [place] [facility] Jun 08, 2024 03:00 PM AMBULATORY - [facility] [place] Jun 11, 2024 08:00 AM AMBULATORY - [place]ICINE [place] Jun 11, 2024 02:00 PM AMBULATORY - REHAB [facility]ICIN [facility] [place] Jun 14, 2024 10:30 AM AMBULATORY - MEDICINE [place] [place] [facility] Jun 15, 2024 10:00 AM AMBULATORY - REHAB [facility] [place] Jun 22, 2024 11:30 AM AMBULATORY - MEDICINE [place] [place] [facility] Jun 22, 2024 03:00 PM AMBULATORY - REHAB [facility] [place] Jun 24, 2024 01:00 PM AMBULATORY - MEDICINE [place] [facility] [place] [facility] Jun 28, 2024 11:00 AM [facility] [place] [facility] Jul 07, 2024 01:00 PM [facility] Active, Pending, and Scheduled Orders This section includes a listing of several types of active, pending, and scheduled orders, including clinic medications orders, diagnostic test orders, procedure orders and consult orders; where the start date of the order is 45 days before the date of the Encounter or 45 days after the date of theEncounter. The data comes from all [place] treatment facilities. Test Date/Time Test Type Test Details Facility Name Apr 08, 2024 12:00 AM Laboratory - Chemistry Order URINALYSIS URINE SP [place] Apr 15, 2024 03:06 PM Consult Order COMMUNITY CARE-NEUROLOGY Cons Sheriffs Officer's Choice [facility] Lab Results: +/- 30 days of the encounter This section includes the Chemistry and Hematology Lab Results on record with [place] for the patient. Radiology Reports and Pathology Reports are provided separately, in subsequent sections. Lab Results This section contains the Chemistry/Hematology Results that were resulted 30 days before or 30 daysafter the date of the Encounter. Date/Time Source Result Type Result - Unit Interpretation Reference Range Comment Apr 15, 2024 11:16 AM [facility] CPK Specimen Type: SERUM No comment entered. Ordering Provider: JOHN PAUL DENNISON Report Released Date/Time: Apr 15, 2024 10:55 AM Reporting Lab: [address] [address] Performing Lab: [address] [address] CPK 67 U/L 30-200 Mar 31, 2024 09:16 AM [place] HEMOGLOBIN A1C PANEL Specimen Type: BLOOD Comment: [...] Apr 08, 2023 02:27 PM Reporting Lab: [address] [address] Performing Lab: [address] [address] HEMOGLOBIN A1C 5.2 4.0-5.6 Mar 31, 2024 09:16 AM [place] BASIC METABOLIC PANEL (fasting) Specime n Type: SERUM No comment entered. Ordering Provider: GREGG HARMON Report Released Date/Time: Apr 08, 2023 02:27 PM Reporting Lab: [address] [address] Performing Lab: [address] [address] UREA NITROGEN 20 mg/dL 7-25 GLUCOSE 100 mg/dL 65-100 SODIUM 140 mmol/L 135-145 POTASSIUM 4.2 mmol/L 3.5-5.0 CHLORIDE 109 mmol/L 100-110 CO2 23 meq/L 20-30 CREATININE, Serum 0.96 mg/dL 0.50-1.40 eGFR(CKD-EPI 2020) 86 mL/min >60 Mar 31, 2024 09:16 AM [place] LIPID PANEL FASTING Specimen Type: SERUM No comment entered. Ordering Provider: GREGG HARMON Report Released Date/Time: Apr 08, 2023 02:27 PM Reporting Lab: [facility] W[facility]N [address] [address] Performing Lab: [facility] [address] [address] CHOLESTEROL 164 mg/dL TRIGLYCERIDE 102 mg/dL 0-150 LDL calculated 101 mg/dL 0-129 CHOL/HDL 3.8 HDL CHOLESTEROL 43 mg/dL 40-60 Mar 31, 2024 09:16 AM [place] LIVER FUNCTION Specimen Type: SERUM No comment entered. Ordering Provider: GREGG HARMON Report Released Date/Time: Apr 08, 2023 02:27 PM Reporting Lab: [facility] [address] [address] Performing Lab: [address] [address] PROTEIN,TOTAL 6.0 g/dL 6.0-8.3 ALBUMIN 3.5 g/dL 3.5-5.0 ALKALINE PHOSPHATASE 70 U/L 40-150 AST 14 U/L 5-34 ALT 20 U/L BILIRUBIN, TOTAL 1.0 mg/dL 0.2-1.2 Mar 31, 2024 09:16 AM [place] TSH Specimen Type: SERUM No comment entered. Ordering Provider: GREGG HARMON Report Released Date/Time: Apr 08, 2023 02:27 PM Reporting Lab: [address] [address] Performing Lab: [address] [address] TSH 2.67 u[IU]/mL 0.35-5.00 Mar 31, 2024 09:16 AM [place] CBC AND DIFF (AUTO) Specimen Type: BLOOD No comment entered. Ordering Provider: GREGG HARMON Report Released Date/Time: Apr 08, 2023 02:27 PM Reporting Lab: [facility] [address] [address] Performing Lab: [address] [address] WBC 4.01 10*3/uL L 4.50-11.00 RBC 4.67 [...] 08, 2023 09:12 AM [facility] Tobacco Use History This section includes a history of the smoking, or tobacco-related health factors, that were collected on or before the date of the Encounter. The data comes from the [place] facility where the En[place] took place. Date/Time Smoking Status/Tobacco Use Comment F acility Aug 09, 2021 09:20 AM [facility]-TOBACCO NEVER USED [facility]
--- OUTSIDE RECORDS SUMMARY | 2024-06-29 19:05 | XMS_ITS | Encounter Summary ---
Author Name [facility] [place] Address [address] [place] [address] Care Team Providers Care Metal Baler Name Role Phone ABDIRAHMAN [place] Primary Care [...] BASIC FAMIL Y Jun 24, 2009 [id number] [phone] ABHILASH GARAY PATIENT ANTHEM [place]BS [place] F[place] PREFERRED PROVIDER ORGANIZAT ION (PPO) FEP BASIC FAM Jun 24, 2009 112 [id number] [phone] ABHILASH GARAY PATIENT ANTHEM BCBS [place] FEP PREFERRED PROVIDER ORGANIZAT ION (PPO) FEP BASIC FAM Jun 24, 2009 112 [id number] [phone] ABHILASH GARAY PATIENT ANTHEM [place] FEP PREFERRED PROVIDER ORGANIZAT ION (PPO) FEP BASIC FAM Jun 24, 2009 112 [id number] [phone] ABHILASH GARAY PATIENT BC[place] FEP PREFERRED PROVIDER ORGANIZAT ION (PPO) FEP BASIC FAM Jun 24, 2009 112 [id number] [phone] ABHILASH GARAY PATIENT BCBS [place] FEP PREFERRED PROVIDER ORGANIZAT ION (PPO) BASIC FAMIL Y Jun 24, 2009 112 [id number] [phone] ABHILASH GARAY PATIENT [place] PREFERRED PROVIDER ORGANIZAT ION (PPO) BASIC FAMIL Y Jun 24, 2009 [id number] ABHILASH GARAY PATIENT [place] FEP PREFERRED PROVIDER ORGANIZAT ION (PPO) BASIC FAMIL Y Jun 24, 2009 [id number] ABHILASH GARAY PATIENT [place] FEP DENTAL DENTAL INSURANCE BASIC Jul 12, 2009 DENTAL [id number] [phone] ABHILASH GARAY PATIENT [place] FEP PREFERRED PROVIDER ORGANIZAT ION (PPO) BASIC FAMIL Y Jun 24, 2009 [id number] ABHILASH GARAY PATIENT [place] FEP ([id number]) PRESCRIPT ION FEPRX Jun 24, 2009 [id number] [phone] ABHILASH GARAY PATIENT [place] FEP BCBS PRESCRIPT ION CAREM ARK FEPRX PLAN Nov 21, 2021 [id number] ABHILASH GARAY PATIENT [place] FEPRX PLAN PRESCRIPT ION CAREM ARK FEPRX Nov 21, 2021 [id number] ABHILASH GARAY PATIENT [place]-F EP BCBS PRESCRIPT ION FEP CAREM ARK Nov 21, 2021 [id number] ABHILASH GARAY PATIENT [place]-F EP BCBS PRESCRIPT ION FEP Jun 23, 2010 [id number] RUBI GARAYNETH PATIENT MEDICARE (WNR) MEDICARE (M) PART A Feb 22, 2020 PART A [id number] ABHILASH GARAY PATIENT MEDICARE (WN) MEDICARE (M) PART A Feb 22, 2020 PART A [id number] ABHILASH GARAY PATIENT MEDICARE (WNR) MEDICARE (M) PART A Feb 22, 2020 PART A [id number] ABHILASH GARAY PATIENT MEDICARE (WNR) MEDICARE (M) PART A Feb 22, 2020 PART A [id number] ABHILASH GARAY PATIENT MEDICARE (WNR) MEDICARE (M) PART A Feb 22, 2020 PART A [id number] [phone] ABHILASH GARAY PATIENT Selected Encounter This section includes the information on record at [place] for the Encounter. Date/Time Encounter Type Encounter Description Reason Provider Source Mar 25, 2024 01:00 PM EXERCISE CLASS HEALTH/WELLBEING SRVS ICD-10-CM Y93.42 Activity, PAT Yoder IHFran Encounter Template Text not used by [place] Assessments - Encounter Diagnoses This section includes the primary and secondary diagnoses documented for the Encounter. Date/Time Primary/Secondary Diagnosis Diagnosis Name Provider Source Mar 26, 2024 08:04 AM PRIMARY Activity, PEDRO Yoder [facility] [place] [facility] Plan of Treatment: Future Appointments (+ 6 [...] Appointment Type Appointme nt Facility Name Apr 06, 2024 10:30 AM [facility] Apr 07, 2024 03:30 PM AMBULATORY - NONE [place] [facility] [place] [facility] Apr 08, 2024 01:00 PM AMBULATORY - MEDICINE [place] [facility] [place] [facility] Apr 12, 2024 11:00 AM AMBULATORY - MEDICINE [place] [facility] [place] [facility] Apr 15, 2024 10:00 AM AMBULATORY - MEDICINE [place] [facility] [place] [facility] Apr 19, 2024 11:00 AM AM[facility]ULATORY [facility]ICINE [place] [facility] [place] [place] [facility] Apr 22, 2024 09:00 AM AMBULATORY - MEDICINE [facility] [place] [place] [facility] May 03, 2024 01:00 PM AMBULATORY - MEDICINE [facility] [place] [place] [facility] May 17, 2024 01:00 PM AMBULATORY - REHAB MEDICIN E [facility] May 28, 2024 07:30 AM AMBULATORY - MEDICINE [facility] [place] [place] [facility] Jun 03, 2024 01:00 PM AMBULATORY - MEDICINE [place] [facility] [place] [facility] Jun 08, 2024 03:00 PM AMBULATORY - REHAB MEDICIN E [facility] Jun 11, 2024 08:00 AM [facility] Jun 11, 2024 02:00 PM AMBULATORY - REHAB MEDICIN E [facility] Jun 14, 2024 10:30 AM AMBULATORY - MEDICINE [place] [facility] [place] [facility] Jun 15, 2024 10:00 AM AMBULATORY - REHAB MEDICIN E [facility] Jun 22, 2024 11:30 AM AMBULATORY - MEDICINE [place] [facility] [place] [facility] Jun 22, 2024 03:00 PM AMBULATORY - REHAB MEDICIN [facility] Jun 24, 2024 01:00 PM AMBULATORY - MEDICINE [place] [facility] [place] [facility] Jun 28, 2024 11:00 AM [facility] NONE [facility] Active, Pending, and Scheduled Orders This section includes a listing of several types of active, pending, and scheduled orders, including clinic medications orders, diagnostic test orders, procedure orders and consult orders; where the start date of the order is 45 days before the date of the Encounter or 45 days after the date of theEncounter. The data comes from all [place] treatment facilities. Test Date/Time Test Type Test Details Facility Name Apr 08, 2024 12:00 AM Laboratory - Chemistry Order URINALYSIS URINE SP [facility] Apr 15, 2024 03:06 PM Consult Order COMMUNITY CARE-NEUROLOGY Cons [facility] Lab Results: +/- 30 days of the encounter This section includes the Chemistry and Hematology Lab Results on record with [place] for the patient. Radiology Reports and Pathology Reports are provided separately, in subsequent sections. Lab Results This section contains the Chemistry/Hematology Results that were resulted 30 days before or 30 daysafter the date of the Encounter. Date/Time Source Result Type Result - Unit Interpretation Reference Range Comment Apr 15, 2024 11:16 AM [facility] CPK Specimen Type: SERUM No comment entered. Ordering Provider: JOHN PAUL DENNISON Report Released Date/Time: Apr 15, 2024 10:55 AM Reporting Lab: [facility] [address] [facility] [address] Performing Lab: [address] [address] CPK 67 U/L 30-200 Mar 31, 2024 09:16 AM [facility] HEMOGLOBIN A1C PANEL Specimen Type: BLOOD Comment: [...] Apr 08, 2023 02:27 PM Reporting Lab: [facility] [address] [facility] [address] Performing Lab: [address] [address] HEMOGLOBIN A1C 5.2 4.0-5.6 Mar 31, 2024 09:16 AM [facility] LIPID PANEL FASTING Specimen Type: SERUM No comment entered. Ordering Provider: GREGG HARMON Report Released Date/Time: Apr 08, 2023 02:27 PM Reporting Lab: [facility] [address] [facility] [address] Performing Lab: [address] [address] CHOLESTEROL 164 mg/dL TRIGLYCERIDE 102 mg/dL 0-150 LDL calculated 101 mg/dL 0-129 CHOL/HDL 3.8 HDL CHOLESTEROL 43 mg/dL 40-60 Mar 31, 2024 09:16 AM [facility] TSH Specimen Type: SERUM No comment entered. Ordering Provider: GREGG HARMON Report Released Date/Time: Apr 08, 2023 02:27 PM Reporting Lab: [address] [address] Performing Lab: [address] [address] TSH 2.67 u[IU]/mL 0.35-5.00 Mar 31, 2024 09:16 AM [facility] LIVER FUNCTION Specimen Type: SERUM No comment entered. Ordering Provider: GREGG HARMON Report Released Date/Time: Apr 08, 2023 02:27 PM Reporting Lab: [address] [address] Performing Lab: [address] [address] PROTEIN,TOTAL 6.0 g/dL 6.0-8.3 ALBUMIN 3.5 g/dL 3.5-5.0 ALKALINE PHOSPHATASE 70 U/L 40-150 AST 14 U/L 5-34 ALT 20 U/L BILIRUBIN, TOTAL 1.0 mg/dL 0.2-1.2 Mar 31, 2024 09:16 AM [facility] BASIC METABOLIC PANEL (fasting) Specime n Type: SERUM No comment entered. Ordering Provider: GREGG HARMON Report Released Date/Time: Apr 08, 2023 02:27 PM Reporting Lab: [address] [address] Performing Lab: [address] [address] UREA NITROGEN 20 mg/dL 7-25 GLUCOSE 100 mg/dL 65-100 SODIUM 140 mmol/L 135-145 POTASSIUM 4.2 mmol/L 3.5-5.0 CHLORIDE 109 mmol/L 100-110 CO2 23 meq/L 20-30 CREATININE, Serum 0.96 mg/dL 0.50-1.40 eGFR(CKD-EPI 2020) 86 mL/min >60 Mar 31, 2024 09:16 AM [facility] CBC AND DIFF (AUTO) Specimen Type: BLOOD No comment entered. Ordering Provider: GREGG HARMON Report Released Date/Time: Apr 08, 2023 02:27 PM Reporting Lab: [facility] [address] [facility] [address] Performing Lab: [facility] [address] [facility] [address] WBC 4.01 10*3/uL L 4.50-11.00 RBC 4.67 [...] 08, 2023 09:12 AM VA-TOBACCO NEVER USED [facility] Tobacco Use History This section includes a history of the smoking, or tobacco-related health factors, that were collected on or before the date of the Encounter. The data comes from the [place] facility where the Encounter took place. Date/Time Smoking Status/Tobacco Use Comment Gilberto [place]oston Aug 09, 2021 09:20 AM VA-TOBACCO NEVER USED [facility] Encounter Notes: All associated encounter notes This section contains the clinical notes associated to the Encounter. Date/Time Encounter Note(s) Provider Source Mar 25, 2024 01:00 PM RECREATIONAL THERA PY NOTE: LOCAL TITLE: YOGA WELLBEING STANDARD TITLE: RECREATIONAL THERAPY NOTE DATE OF NOTE: MAR 25, 2024@13:00 ENTRY DATE: MAR 26, 2024@08:01:26 AUTHOR: MARY KATE MOORE EXP COSIGNER: URGENCY: [...] triangle pose, wide leg forward bend variations, [place] 2, extended side angle pose, [place] 1, plank, cobra, locust, downward facing dog, wisdom pose, contralateral limb raises, head to knee pose, bridge, reclined twist, knees to chest; Systematic Relaxation; and Gratitude. Modifications were geared toward the [place]'s individual needs and preferences. [place] was one of eight participants in Group Yoga. [place] practiced all the postures offered, modifying poses according to individual needs and using yoga props for support as needed. [place] will return to class as personal scheduling allows. /yunior/ MARY KATE MOORE [id number] Electronic Engineering Draftsperson Signed: 03/26/2024 08:26 MARY KATE MOORE [facility]
--- OUTSIDE RECORDS SUMMARY | 2024-06-29 19:05 | XMS_ITS | Encounter Summary ---
Author Name [facility] [place] [facility] [place] Organization [facility] [place] Address [address] [place] [address] Care Team Providers Care Contract Writer Name Role Phone ABDIRAHMAN [place] Primary Care [...] BASIC FAMIL Y Jun 24, 2009 [id number] [phone] ABHILASH GARAY PATIENT ANTHEM BCBS [place] FEP PREFERRED PROVIDER ORGANIZAT ION (PPO) FEP BASIC FAM Jun 24, 2009 [id number] [phone] ABHILASH GARAY PATIENT ANTHEM BCBS [place] FEP PREFERRED PROVIDER ORGANIZAT ION (PPO) FEP BASIC FAM Jun 24, 2009 112 [id number] [phone] ABHILASH GARAY PATIENT ANTHEM [place] PREFERRED PROVIDER ORGANIZAT ION (PPO) FEP BASIC FAM Jun 24, 2009 [id number] [phone] ABHILASH GARAY PATIENT [place] F[place] PREFERRED PROVIDER ORGANIZAT ION (PPO) FEP BASIC FAM Jun 24, 2009 112 [id number] [phone] ABHILAHS GARAY PATIENT [place] FEP PREFERRED PROVIDER ORGANIZAT ION (PPO) BASIC FAMIL Y Jun 24, 2009 [id number] ABHILASH GARAY PATIENT [place] F[place] PREFERRED PROVIDER ORGANIZAT ION (PPO) BASIC FAMIL Y Jun 24, 2009 [id number] ABHILASH GARAY PATIENT [place] F[place] PREFERRED PROVIDER ORGANIZAT ION (PPO) BASIC FAMIL Y Jun 24, 2009 [id number] ABHILASH GARAY PATIENT [place] F[place] DENTAL DENTAL INSURANCE BASIC Jul 12, 2009 DENTAL [id number] ABHILASH GARAY PATIENT [place] FEP PREFERRED PROVIDER ORGANIZAT ION (PPO) BASIC FAMIL Y Jun 24, 2009 112 [id number] [phone] ABHILASH GARAY PATIENT [employer] FEP ([id number]) PRESCRIPT ION FEPRX Jun 24, 2009 [id number] [phone] ABHILASH GARAY PATIENT [place] FEP BCBS PRESCRIPT ION CAREM ARK FEPRX PLAN Nov 21, 2021 [id number] ABHILASH GARAY PATIENT [place] FEPRX PLAN PRESCRIPT ION CAREM ARK FEPRX Nov 21, 2021 [id number] ABHILASH GARAY PATIENT [place]-F EP BCBS PRESCRIPT ION FEP CAREM ARK Nov 21, 2021 [id number] ABHILASH GARAY PATIENT [place]-F EP BCBS PRESCRIPT ION FEP Jun 23, 2010 [id number] RUBI GARYANETH PATIENT MEDICARE (WN) MEDICARE () PART A Feb 22, 2020 PART A [id number] ABHILASH GARAY PATIENT MEDICARE (WN) MEDICARE () PART A Feb 22, 2020 PART A [id number] ABHILASH GARAY PATIENT MEDICARE (WNR) MEDICARE (M) PART A Feb 22, 2020 PART A [id number] ABHILASH GARAY PATIENT MEDICARE (WNR) MEDICARE (M) PART A Feb 22, 2020 PART A [id number] ABHILASH GARAY PATIENT MEDICARE (WNR) MEDICARE (M) PART A Feb 22, 2020 PART A [id number] ABHILASH GARAY PATIENT Selected Encounter This section includes the information on record at [place] for the Encounter. Date/Time Encounter Type Encounter Description Reason Provider Source Apr 12, 2024 11:00 AM EXERCISE CLASS HEALTH/WELLBEING SRVS ICD-10-CM Y93.42 Activity, PAT Yoder [place] IHE Encounter Template Text not used by [place] Assessments - Encounter Diagnoses This section includes the primary and secondary diagnoses documented for the Encounter. Date/Time Primary/Secondary Diagnosis Diagnosis Name Provider Source Apr 13, 2024 02:33 PM PRIMARY Activity, PEDRO Yoder [facility] [place] [facility] Plan of Treatment: Future Appointments [...] Appointment Type Appointme nt Facility Name Apr 15, 2024 10:00 AM AMBULATORY - MEDICINE [facility] [place] [facility] Apr 19, 2024 11:00 AM AMBULATORY - MEDICINE [place] C [facility] [facility] Apr 22, 2024 09:00 AM AMBULATORY - MEDICINE [place] [facility] [place] [facility] May 03, 2024 01:00 PM AMBULATORY - MEDICINE [facility] [place] [facility] May 17, 2024 01:00 PM AMBULATORY - REHAB MEDICIN [facility] May 28, 2024 07:30 AM AMBULATORY - MEDICINE [place] [facility] [place] [facility] Jun 03, 2024 01:00 PM AMBULATORY - MEDICINE [place] [facility] [place] [facility] Jun 08, 2024 03:00 PM AMBULATORY - REHAB MEDICIN E [place] Jun 11, 2024 08:00 AM AMBULATORY - MEDICINE [facility] Jun 11, 2024 02:00 PM AMBULATORY - REHAB MEDICIN E [place] Jun 14, 2024 10:30 AM AMBULATORY - MEDICINE [place] [facility] [place] [facility] Jun 15, 2024 10:00 AM AMBULATORY - REHAB MEDICIN E [place] Jun 22, 2024 11:30 AM AMBULATORY - MEDICINE [place] [facility] [place] [facility] Jun 22, 2024 03:00 PM AMBULATORY - REHAB MEDICIN [facility] [place] Jun 24, 2024 01:00 PM AMBULATORY - MEDICINE [place] [facility] [place] [facility] Jun 28, 2024 11:00 AM AMBULATORY - NONE [place] [facility] [place] [facility] Jul 07, 2024 01:00 PM AMBULATORY - MEDICINE [facility] Jul 23, 2024 01:30 PM AMBULATORY - MEDICINE [place] [facility] [place] [facility] Aug 04, 2024 10:00 AM AMBULATORY - MEDICINE [place] [facility] [place] [facility] Aug 25, 2024 10:30 AM AMBULATORY - MEDICINE [place] [facility] [place] [facility] Active, Pending, and Scheduled Orders This section includes a listing of several types of active, pending, and scheduled orders, including clinic medications orders, diagnostic test orders, procedure orders and consult orders; where the start date of the order is 45 days before the date of the Encounter or 45 days after the date of theEncounter. The data comes from all [place] treatment facilities. Test Date/Time Test Type Test Details Facility Name Apr 08, 2024 12:00 AM Laboratory - Chemistry Order URINALYSIS URINE SP [facility] Apr 15, 2024 03:06 PM Consult Order COMMUNITY CARE-NEUROLOGY Cons Embedded Nurse's Choice [place] [facility] [place] [facility] Lab Results: +/- 30 days of the encounter This section includes the Chemistry and Hematology Lab Results on record with [place] for the patient. Radiology Reports and Pathology Reports are provided separately, in subsequent sections. Lab Results This section contains the Chemistry/Hematology Results that were resulted 30 days before or 30 daysafter the date of the Encounter. Date/Time Source Result Type Result - Unit Interpretation Reference Range Comment Apr 15, 2024 11:16 AM [facility] CPK Specimen Type: SERUM No comment entered. Ordering Provider: JOHN PAUL DENNISON Report Released Date/Time: Apr 15, 2024 10:55 AM Reporting Lab: [facility] [address] [facility] [address] Performing Lab: [facility] [address] [facility] [address] CPK 67 U/L 30-200 Mar 31, 2024 09:16 AM [facility] HEMOGLOBIN A1C PANEL Specimen Type: BLOOD Comment: [...] Apr 08, 2023 02:27 PM Reporting Lab: [facility] [address] [facility] [address] Performing Lab: [address] [address] HEMOGLOBIN A1C 5.2 4.0-5.6 Mar 31, 2024 09:16 AM [facility] LIPID PANEL FASTING Specimen Type: SERUM No comment entered. Ordering Provider: GREGG HARMON Report Released Date/Time: Apr 08, 2023 02:27 PM Reporting Lab: [facility] [address] [facility] [address] Performing Lab: [address] [address] CHOLESTEROL 164 mg/dL TRIGLYCERIDE 102 mg/dL 0-150 LDL calculated 101 mg/dL 0-129 CHOL/HDL 3.8 HDL CHOLESTEROL 43 mg/dL 40-60 Mar 31, 2024 09:16 AM [facility] TSH Specimen Type: SERUM No comment entered. Ordering Provider: GREGG HARMON Report Released Date/Time: Apr 08, 2023 02:27 PM Reporting Lab: [address] [address] Performing Lab: [address] [address] TSH 2.67 u[IU]/mL 0.35-5.00 Mar 31, 2024 09:16 AM [facility] BASIC METABOLIC PANEL (fasting) Specime n Type: SERUM No comment entered. Ordering Provider: GREGG HARMON Report Released Date/Time: Apr 08, 2023 02:27 PM Reporting Lab: [address] [address] Performing Lab: [address] [address] UREA NITROGEN 20 mg/dL 7-25 GLUCOSE 100 mg/dL 65-100 SODIUM 140 mmol/L 135-145 POTASSIUM 4.2 mmol/L 3.5-5.0 CHLORIDE 109 mmol/L 100-110 CO2 23 meq/L 20-30 CREATININE, Serum 0.96 mg/dL 0.50-1.40 eGFR(CKD-EPI 2020) 86 mL/min >60 Mar 31, 2024 09:16 AM [facility] LIVER FUNCTION Specimen Type: SERUM No comment entered. Ordering Provider: GREGG HARMON Report Released Date/Time: Apr 08, 2023 02:27 PM Reporting Lab: [address] [address] Performing Lab: [address] [address] PROTEIN,TOTAL 6.0 g/dL 6.0-8.3 ALBUMIN 3.5 g/dL 3.5-5.0 ALKALINE PHOSPHATASE 70 U/L 40-150 AST 14 U/L 5-34 ALT 20 U/L BILIRUBIN, TOTAL 1.0 mg/dL 0.2-1.2 Mar 31, 2024 09:16 AM [facility] CBC AND DIFF (AUTO) Specimen Type: BLOOD No comment entered. Ordering Provider: GREGG HARMON Report Released Date/Time: Apr 08, 2023 02:27 PM Reporting Lab: [facility] [address] [address] Performing Lab: [facility] [address] [address] WBC 4.01 10*3/uL L 4.50-11.00 RBC 4.67 [...] 08, 2023 09:12 AM VA-TOBACCO NEVER USED [facility] Tobacco Use History This section includes a history of the smoking, or tobacco-related health factors, that were collected on or before the date of the Encounter. The data comes from the [place] facility where the Encounter took place. Date/Time Smoking Status/Tobacco Use Comment Gilberto boston Aug 09, 2021 09:20 AM VA-TOBACCO NEVER USED [facility] Encounter Notes: All associated encounter notes This section contains the clinical notes associated to the Encounter. Date/Time Encounter Note(s) Provider Source Apr 12, 2024 11:00 AM RECREATIONAL THERA PY NOTE: LOCAL TITLE: YOGA WELLBEING STANDARD TITLE: RECREATIONAL THERAPY NOTE DATE OF NOTE: APR 12, 2024@11:00 ENTRY DATE: APR 13, 2024@14:30:53 AUTHOR: MARY KATE MOORE COSIGNER: URGENCY: STATUS: [...] triangle pose, wide leg forward bend variations, [place] 2, extended side angle pose, [place] 1, plank, cobra, locust, downward facing dog, wisdom pose, contralateral limb raises, head to knee pose, bridge, reclined twist, knees to chest; Systematic Relaxation; and Gratitude. Modifications were geared toward the [place]'s individual needs and preferences. was one of eight participants in Group Yoga, fully engaging in all the postures offered and modifying according to individual needs. used yoga blocks and a yoga belt for support as needed and used breath as a tool to enhance practice. will return to class as personal scheduling allows. /yunior/ NINO [id number] Service Desk Team Lead Signed: 04/13/2024 14:37 MARY KATE MO[facility]ILL[facility]ITAL[facility]
--- OUTSIDE RECORDS SUMMARY | 2024-06-29 19:05 | XMS_ITS ---
Author Name [facility] Organization [facility] [place] Address [address] [place] [address] Care Team Providers Care Purchasing Manager Name Role Phone ABDIRAHMAN LA[place] Primary [...] BASIC FAMIL Y Jun 24, 2009 [id number] [phone] ABHILASH GARAY PATIENT ANTHEM BCBS [place] FEP PREFERRED PROVIDER ORGANIZAT ION (PPO) FEP BASIC FAM Jun 24, 2009 112 [id number] [phone] ABHILASH GARAY PATIENT ANTHEM BCBS [place] FEP PREFERRED PROVIDER ORGANIZAT ION (PPO) FEP BASIC FAM Jun 24, 2009 112 [id number] [phone] ABHILASH GARAY PATIENT ANTHEM [place] F[place] PREFERRED PROVIDER ORGANIZAT ION (PPO) FEP BASIC FAM Jun 24, 2009 112 [id number] [phone] ABHILASH GARAY PATIENT [place]BS [place] FEP PREFERRED PROVIDER ORGANIZAT ION (PPO) FEP BASIC FAM Jun 24, 2009 112 [id number] [phone] ABHILASH GARAY PATIENT BCBS [place] FEP PREFERRED PROVIDER ORGANIZAT ION (PPO) BASIC FAMIL Y Jun 24, 2009 [id number] ABHILASH GARAY PATIENT [place] F[place] PREFERRED PROVIDER ORGANIZAT ION (PPO) BASIC FAMIL Y Jun 24, 2009 [id number] ABHILASH GARAY PATIENT [place] FEP PREFERRED PROVIDER ORGANIZAT ION (PPO) BASIC FAMIL Y Jun 24, 2009 [id number] ABHILASH GARAY PATIENT [place] FEP DENTAL DENTAL INSURANCE BASIC Jul 12, 2009 DENTAL [id number] ABHILASH GARAY PATIENT [place] FEP PREFERRED PROVIDER ORGANIZAT ION (PPO) BASIC FAMIL Y Jun 24, 2009 [id number] ABHILASH GARAY PATIENT [employer] FEP ([id number]) PRESCRIPT ION FEPRX Jun 24, 2009 [id number] [phone] ABHILASH GARAY PATIENT [place] FEP BCBS PRESCRIPT ION CAREM ARK FEPRX PLAN Nov 21, 2021 [id number] ABHILASH GARAY PATIENT [employer] FEPRX PLAN PRESCRIPT ION CAREM ARK FEPRX Nov 21, 2021 [id number] ABHILASH GARAY PATIENT [employer]-F EP BCBS PRESCRIPT ION FEP CAREM ARK Nov 21, 2021 [id number] ABHILASH GARAY PATIENT [employer]-F EP BCBS PRESCRIPT ION FEP Jun 23, 2010 [id number] ABHILASH GARAY PATIENT MEDICARE (WN) MEDICARE () PART A Feb 22, 2020 PART A [id number] ABHILASH GARAY PATIENT MEDICARE ([facility]) MEDICARE () PART A Feb 22, 2020 PART A [id number] ABHILASH GARAY PATIENT MEDICARE (WNR) MEDICARE (M) PART A Feb 22, 2020 PART A [id number] ABHILASH GARAY PATIENT MEDICARE (WNR) MEDICARE (M) PART A Feb 22, 2020 PART A [id number] ABHILASH GARAY PATIENT MEDICARE (WNR) MEDICARE (M) PART A Feb 22, 2020 PART A [id number] ABHILASH GARAY PATIENT Selected Encounter This section includes the information on record at [place] for the Encounter. Date/Time Encounter Type Encounter Description Reason Pro vider Source Mar 24, 2024 12:00 AM Outpatient Encounter COMMUNITY CARE CONSULT [...] AMBULATORY - NONE [facility] [place] [facility] 01:00 PM AMBULATORY - REHAB MEDICIN [facility] [place] May 28, 2024 07:30 AM AMBULATORY - MEDICINE [facility] [place] [facility] Jun 03, 2024 01:00 PM AMBULATORY - MEDICINE [place] [facility] [place] [facility] Jun 08, 2024 03:00 PM AMBULATORY - REHAB MEDICIN [facility] Jun 11, 2024 08:00 AM AMBULATORY - MEDICINE [facility] Jun 11, 2024 02:00 PM AMBULATORY - REHAB MEDICIN E [place] Jun 14, 2024 10:30 AM AMBULATORY - MEDICINE [facility] [place] [facility] Jun 15, 2024 10:00 AM AMBULATORY - REHAB MEDICIN [facility] Jun 22, 2024 11:30 AM AMBULATORY - MEDICINE [facility] [place] [place] [facility] Jun 22, 2024 03:00 PM AMBULATORY - REHAB [facility] Jun 24, 2024 01:00 PM AMBULATORY - MEDICINE [facility] Active, Pending, and Scheduled Orders This section includes a listing of several types of active, pending, and scheduled orders, including clinic medications orders, diagnostic test orders, procedure orders and consult orders; where the start date of the order is 45 days before the date of the Encounter or 45 days after the date of theEncounter. The data comes from all [place] treatment [facility]. Test Date/Time Test Type Test Details Facility Name Apr 08, 2024 12:00 AM Laboratory - Chemistry Order URINALYSIS URINE [facility] Apr 15, 2024 03:06 PM Consult Order COMMUNITY CARE-NEUROLOGY Cons Flight Engineer Instructor's Choice [facility] Lab Results: +/- 30 days of the encounter This section includes the Chemistry and Hematology Lab Results on record with [place] for the patient. Radiology Reports and Pathology Reports are provided separately, in subsequent sections. Lab Results This section contains the Chemistry/Hematology Results that were resulted 30 days before or 30 daysafter the date of the Encounter. Date/Time Source Result Type Result - Unit Interpretation Reference Range Comment Apr 15, 2024 11:16 AM [facility] CPK Specimen Type: SERUM No comment entered. Ordering Provider: JOHN PAUL DENNISON Report Released Date/Time: Apr 15, 2024 10:55 AM Reporting Lab: [address] [address] Performing Lab: [address] [address] CPK 67 U/L 30-200 Mar 31, 2024 09:16 AM [place] HEMOGLOBIN A1C PANEL Specimen Type: BLOOD Comment: [...] Apr 08, 2023 02:27 PM Reporting Lab: [address] [address] Performing Lab: [address] [address] HEMOGLOBIN A1C 5.2 4.0-5.6 Mar 31, 2024 09:16 AM [place] BASIC METABOLIC PANEL (fasting) Specime n Type: SERUM No comment entered. Ordering Provider: GREGG HARMON Report Released Date/Time: Apr 08, 2023 02:27 PM Reporting Lab: [address] [address] Performing Lab: [address] [address] UREA NITROGEN 20 mg/dL 7-25 GLUCOSE 100 mg/dL 65-100 SODIUM 140 mmol/L 135-145 POTASSIUM 4.2 mmol/L 3.5-5.0 CHLORIDE 109 mmol/L 100-110 CO2 23 meq/L 20-30 CREATININE, Serum 0.96 mg/dL 0.50-1.40 eGFR(CKD-EPI 2020) 86 mL/min >60 Mar 31, 2024 09:16 AM [place] TSH Specimen Type: SERUM No comment entered. Ordering Provider: GREGG HARMON Report Released Date/Time: Apr 08, 2023 02:27 PM Reporting Lab: [facility] [address] [facility] [address] Performing Lab: [facility] [address] [facility] [address] TSH 2.67 u[IU]/mL 0.35-5.00 Mar 31, 2024 09:16 AM [place] LIPID PANEL FASTING Specimen Type: SERUM No comment entered. Ordering Provider: GREGG HARMON Report Released Date/Time: Apr 08, 2023 02:27 PM Reporting Lab: [facility] [address] [facility] [address] Performing Lab: [address] [address] CHOLESTEROL 164 mg/dL TRIGLYCERIDE 102 mg/dL 0-150 LDL calculated 101 mg/dL 0-129 CHOL/HDL 3.8 HDL CHOLESTEROL 43 mg/dL 40-60 Mar 31, 2024 09:16 AM [place] LIVER FUNCTION Specimen Type: SERUM No comment entered. Ordering Provider: GREGG HARMON Report Released Date/Time: Apr 08, 2023 02:27 PM Reporting Lab: [facility] [address] [facility] [address] Performing Lab: [facility] [address] [address] PROTEIN,TOTAL 6.0 g/dL 6.0-8.3 ALBUMIN 3.5 g/dL 3.5-5.0 ALKALINE PHOSPHATASE 70 U/L 40-150 AST 14 U/L 5-34 ALT 20 U/L BILIRUBIN, TOTAL 1.0 mg/dL 0.2-1.2 Mar 31, 2024 09:16 AM [place] CBC AND DIFF (AUTO) Specimen Type: BLOOD No comment entered. Ordering Provider: GREGG HARMON Report Released Date/Time: Apr 08, 2023 02:27 PM Reporting Lab: [facility] [address] [address] Performing Lab: [facility] [address] [address] WBC 4.01 10*3/uL L 4.50-11.00 RBC 4.67 [...] 09, 2021 09:20 AM VA-TOBACCO NEVER USED [facility] Encounter Notes: All associated encounter notes This section contains the clinical notes associated to the Encounter. Date/Time Encounter Note(s) Provider Source Mar 24, 2024 12:00 AM NONVA CONSULT: LOCAL TITLE: COMMUNITY CARE-CONSULT RESULT NOTE STANDARD TITLE: NONVA CONSULT DATE OF NOTE: MAR 24, 2024 ENTRY DATE: APR 14, 2024@07:39:11 AUTHOR: ADITHYA ZAMORA COSIGNER: URGENCY: STATUS: COMPLETED VistA Imaging - Scanned Document SCANNED DOCUMENT SIGNATURE NOT REQUIRED Electronically Filed: 04/14/2024 by: ADITHYA ZAMORA BULLDOZER OPERATOR ADITHYA ZAMORA [place] [facility]
--- OUTSIDE RECORDS SUMMARY | 2024-06-29 19:06 | XMS_ITS | Encounter Summary ---
Author Name [facility] of [facility] [place] Organization [facility] [place] Address [address] [place] [address] Care Team Providers Care Contractor Buyer Name Role Phone ABDIRAHMAN LAKE Primary [...] BASIC FAMIL Y Jun 24, 2009 112 [id number] [phone] ABHILASH GARAY PATIENT ANTHEM BCBS [place] FEP PREFERRED PROVIDER ORGANIZAT ION (PPO) FEP BASIC FAM Jun 24, 2009 112 [id number] [phone] ABHILASH GARAY PATIENT ANTHEM BCBS [place] FEP PREFERRED PROVIDER ORGANIZAT ION (PPO) FEP BASIC FAM Jun 24, 2009 112 [id number] [phone] ABHILASH GARAY PATIENT ANTHEM [place] PREFERRED PROVIDER ORGANIZAT ION (PPO) FEP BASIC FAM Jun 24, 2009 112 [id number] [phone] ABHILASH GARAY PATIENT [place] PREFERRED PROVIDER ORGANIZAT ION (PPO) FEP BASIC FAM Jun 24, 2009 [id number] [phone] ABHILASH GARAY PATIENT BCBS [place] FEP PREFERRED PROVIDER ORGANIZAT ION (PPO) BASIC FAMIL Y Jun 24, 2009 [id number] ABHILASH GARAY PATIENT [place] FEP PREFERRED PROVIDER ORGANIZAT ION (PPO) BASIC FAMIL Y Jun 24, 2009 [id number] ABHILASH GARAY PATIENT [place] FEP PREFERRED PROVIDER ORGANIZAT ION (PPO) BASIC FAMIL Y Jun 24, 2009 [id number] [phone] ABHILASH GARAY PATIENT [place] FEP DENTAL DENTAL INSURANCE BASIC Jul 12, 2009 DENTAL [id number] ABHILASH GARAY PATIENT [place] FEP PREFERRED PROVIDER ORGANIZAT ION (PPO) BASIC FAMIL Y Jun 24, 2009 [id number] ABHILASH GARAY PATIENT [employer] FEP ([id number]) PRESCRIPT ION FEPRX Jun 24, 2009 [id number] [phone] ABHILASH GARAY PATIENT [employer] FEP BCBS PRESCRIPT ION CAREM ARK FEPRX PLAN Nov 21, 2021 [id number] ABHILASH GARAY PATIENT [employer] FEPRX PLAN PRESCRIPT ION CAREM ARK FEPRX Nov 21, 2021 [id number] ABHILASH GARAY PATIENT [place]-F EP BCBS PRESCRIPT ION FEP CAREM ARK Nov 21, 2021 [id number] ABHILASH GARAY PATIENT [place]-F EP BCBS PRESCRIPT ION FEP Jun 23, 2010 [id number] RUBI GARAYNETH PATIENT MEDICARE (WN) MEDICARE () PART A Feb 22, 2020 PART A [id number] ABHILASH GARAY PATIENT MEDICARE (WN) MEDICARE () PART A Feb 22, 2020 PART A [id number] NV71 [id number] ABHILASH GARAY PATIENT MEDICARE (WNR) MEDICARE (M) PART A Feb 22, 2020 PART A [id number] ABHILASH GARAY PATIENT MEDICARE (WNR) MEDICARE (M) PART A Feb 22, 2020 PART A [id number] ABHILASH GARAY PATIENT MEDICARE (WNR) MEDICARE (M) PART A Feb 22, 2020 PART A [id number] NV71 [id number] ABHILASH GARAY PATIENT Selected Encounter This section includes the information on record at MD for the Encounter. Date/Time Encounter Type Encounter Description Reason Provider Source Apr 22, 2024 09:00 AM INFRARED THERAPY [facility] TREATMENT ICD-10-CM M54.50 Low back pain, unspecified GAUNYA,GRACE PHER M IHE Encounter Template Text not used by MD Assessments - Encounter Diagnoses This section includes the primary and secondary diagnoses documented for the Encounter. Date/Time Primary/Secondary Diagnosis Diagnosis Name Provider Source May 07, 2024 09:14 AM PRIMARY Low back pain, unspecified GAUNYA,GRACE PHER M [place] [facility] [place] [facility] May 07, 2024 09:14 AM SECONDARY Pain in left knee GAUNYA,GRACE PHER M [facility] [place] [facility] May 07, 2024 09:14 AM SECONDARY Pain in right knee GAUNYA,GRACE PHER M [facility] [place] [facility] May 07, 2024 09:14 AM SECONDARY Polyneuropathy, unspecified GAUNYA,GRACE PHER M [facility] [place] [facility] Plan of Treatment: Future Appointments (+ [...] Date/Time Appointment Type Appointme nt Facility Name May 03, 2024 01:00 PM AMBULATORY - MEDICINE [facility] [place] [facility] May 17, 2024 01:00 PM AMBULATORY - REHAB MEDICIN [facility] [place] May 28, 2024 07:30 AM AMBULATORY - MEDICINE [facility] [place] [facility] Jun 03, 2024 01:00 PM AMBULATORY - MEDICINE [facility] [place] [facility] Jun 08, 2024 03:00 PM AMBULATORY - REHAB MEDICIN [place] Jun 11, 2024 08:00 AM AMB[place]ORY [place]ICINE [place] Jun 11, 2024 02:00 PM AMBULATORY - REHAB MEDICIN E [place] Jun 14, 2024 10:30 AM AMBULATORY - MEDICINE [facility] [place] [facility] Jun 15, 2024 10:00 AM AMBULATORY - REHAB MEDICIN E [place] Jun 22, 2024 11:30 AM AMBULATORY - MEDICINE [facility] [place] [facility] Jun 22, 2024 03:00 PM AMBULATORY - REHAB MEDICIN E [place] Jun 24, 2024 01:00 PM AMBULATORY - MEDICINE [facility] [place] [facility] Jun 28, 2024 11:00 AM AMBULATORY - NONE [facility] [place] [facility] Jul 07, 2024 01:00 [facility] Jul 23, 2024 01:30 PM AMBULAT[facility] - MEDICINE [facility] [place] [facility] Aug 04, 2024 10:00 AM AMBULATORY - MEDICINE [facility] [place] [facility] Aug 25, 2024 10:30 AM AMBULATORY - MEDICINE [facility] [place] [facility] Sep 21, 2024 01:30 PM [facility] Oct 05, 2024 11:00 AM AMBULATORY - MEDICINE [facility] Active, Pending, and Scheduled Orders This section includes a listing of several types of active, pending, and scheduled orders, including clinic medications orders, diagnostic test orders, procedure orders and consult orders; where the start date of the order is 45 days before the date of the Encounter or 45 days after the date of theEncounter. The data comes from all [place] treatment [facility]. Test Date/Time Test Type Test Details Facility Name Apr 08, 2024 12:00 AM Laboratory - Chemistry Order URINALYSIS URINE [facility] [place] Apr 15, 2024 03:06 PM Consult Order [facility]-NEUROLOGY Cons Manager Web's Choice [facility] Jun 01, 2024 11:54 AM Consult Order [facility] MASSAGE THERAPY Cons Manager Web's Choice [place] Lab Results: +/- 30 days of the [...] Range Comment Apr 15, 2024 11:16 AM [facility] CPK Specimen Type: SERUM No comment entered. Ordering Provider: JOHN PAUL DENNISON Report Released Date/Time: Apr 15, 2024 10:55 AM Reporting Lab: [facility] [address] [address] Performing Lab: [facility] [address] [address] CPK 67 U/L 30-200 Mar 31, 2024 09:16 AM [place] HEMOGLOBIN A1C PANEL Specimen Type: BLOOD Comment: [...] Apr 08, 2023 02:27 PM Reporting Lab: [facility] [address] [address] Performing Lab: [address] [address] HEMOGLOBIN A1C 5.2 4.0-5.6 Mar 31, 2024 09:16 AM [place] BASIC METABOLIC PANEL (fasting) Specime n Type: SERUM No comment entered. Ordering Provider: GREGG HARMON Report Released Date/Time: Apr 08, 2023 02:27 PM Reporting Lab: [facility] [address] [address] Performing Lab: [address] [address] UREA NITROGEN 20 mg/dL 7-25 GLUCOSE 100 mg/dL 65-100 SODIUM 140 mmol/L 135-145 POTASSIUM 4.2 mmol/L 3.5-5.0 CHLORIDE 109 mmol/L 100-110 CO2 23 meq/L 20-30 CREATININE, Serum 0.96 mg/dL 0.50-1.40 eGFR(CKD-EPI 2020) 86 mL/min >60 Mar 31, 2024 09:16 AM [place] LIPID PANEL FASTING Specimen Type: SERUM No comment entered. Ordering Provider: GREGG HARMON Report Released Date/Time: Apr 08, 2023 02:27 PM Reporting Lab: [address] [address] Performing Lab: [address] [address] CHOLESTEROL 164 mg/dL TRIGLYCERIDE 102 mg/dL 0-150 LDL calculated 101 mg/dL 0-129 CHOL/HDL 3.8 HDL CHOLESTEROL 43 mg/dL 40-60 Mar 31, 2024 09:16 AM [place] LIVER FUNCTION Specimen Type: SERUM No comment entered. Ordering Provider: GREGG HARMON Report Released Date/Time: Apr 08, 2023 02:27 PM Reporting Lab: [address] [address] Performing Lab: [address] [address] PROTEIN,TOTAL 6.0 g/dL 6.0-8.3 ALBUMIN 3.5 g/dL 3.5-5.0 ALKALINE PHOSPHATASE 70 U/L 40-150 AST 14 U/L 5-34 ALT 20 U/L BILIRUBIN, TOTAL 1.0 mg/dL 0.2-1.2 Mar 31, 2024 09:16 AM [place] CBC AND DIFF (AUTO) Specimen Type: BLOOD No comment entered. Ordering Provider: GREGG HARMON Report Released Date/Time: Apr 08, 2023 02:27 PM Reporting Lab: [address] [address] Performing Lab: [facility] [address] [facility] [address] WBC 4.01 10*3/uL L 4.50-11.00 RBC 4.67 [...] 0.0 0.0-0.0 NRBC, ABS 0.00 10*3/uL 0.00-0.00 Mar 31, 2024 09:16 AM [place] TSH Specimen Type: SERUM No comment entered. Ordering Provider: GREGG HARMON Report Released Date/Time: Apr 08, 2023 02:27 PM Reporting Lab: [facility] [address] [facility] [address] Performing Lab: [address] [address] TSH 2.67 u[IU]/mL 0.35-5.00 Social History: Smoking Status (Most current) and [...] 09:20 AM [facility] Encounter Notes: All associated encounter notes This section contains the clinical notes associated to the Encounter. Date/Time Encounter Note(s) Provider Source Apr 22, 2024 11:50 AM ACUPUNCTURE NOTE: LOCAL TITLE: ACUPUNCTURE TREATMENT STANDARD TITLE: ACUPUNCTURE NOTE DATE OF NOTE: APR 22, 2024@11:50 ENTRY DATE: APR 22, 2024@11:50:09 AUTHOR: DEE RODAS EXP COSIGNER: URGENCY: STATUS: [...] History of pulmonary embolus Z86.71 08/09/2021 GREGG HARMNO Kidney stone N20.0 09/11/2020 GREGG HARMON Benign [...] HYPERLIPIDEMIA NEC/NOS 272.4 11/26/2010 GREGG HARMON Date Mar CC / HPI - presents with 2 complaints. Primary complaint is low back pain. 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 [place] states he gets stabbing pain that can [...] Anitha had his thyroid removed last year. [place] states he gets cold easily. Digestion: Anitha has history of GERD but no other issues. No discomfort reported. Bowel movements regular and unremarkable. Urine normal. RESPONSE TO PREVIOUS TREATMENT. Anitha reports that he has had no change in his foot neuropathy. Anitha states that his knees however felt improved after his visit in January. Anitha states that the pain was more moderate and it lasted for a week or so. Anitha states he has been active with other treatments including yoga and hydrotherapy and reports that he is enjoying the process. Anitha states that he is still concerned with his ability to eat too much food and his inability to lose weight. Discussed further treatment options with patient. Anitha has agreed to come in for treatment on an as-needed basis. Anitha will reach out to ghost writer if he feels any reversal of current gains. [place] agreed to treatment plan. _ OBJECTIVE General: . Patient in no [...] ]Pyonex Needle: remove prior to bathing per orange picker machine operator INFORMED CONSENT: Oral Consent obtained on Mar The patient was positioned comfortably. Oral consent [...] is required /yunior/ DEE RODAS LA.C DIPL.AC ELECTRICAL SOFTWARE ENGINEER Signed: 04/22/2024 11:53 DEE RODAS [facility]
--- OUTSIDE RECORDS SUMMARY | 2024-06-29 19:06 | XMS_ITS | Encounter Summary ---
Author Name [facility] [place] [facility] [place] [facility] [facility] [place] Address [address] [place] [address] Care Team Providers Care [employer] Millwright Name Role Phone ABDIR[place] Primary Care [...] BASIC FAMIL Y Jun 24, 2009 [id number] [phone] ABHILASH GARAY PATIENT ANTHEM [place]BS [place] FEP PREFERRED PROVIDER ORGANIZAT ION (PPO) FEP BASIC FAM Jun 24, 2009 112 [id number] [phone] BAHILASH GARAY PATIENT ANTHEM [place] F[place] PREFERRED PROVIDER ORGANIZAT ION (PPO) FEP BASIC FAM Jun 24, 2009 112 [id number] [phone] ABHILASH GARAY PATIENT ANTHE[place] F[place] PREFERRED PROVIDER ORGANIZAT ION (PPO) FEP BASIC FAM Jun 24, 2009 112 [id number] [phone] ABHILASH GARAY PATIENT [place] F[place] PREFERRED PROVIDER ORGANIZAT ION (PPO) FEP BASIC FAM Jun 24, 2009 112 [id number] [phone] ABHILASH GARAY PATIENT [place]BS [place] FEP PREFERRED PROVIDER ORGANIZAT ION (PPO) BASIC FAMIL Y Jun 24, 2009 112 [id number] ABHILASH GARAY PATIENT [place] PREFERRED PROVIDER ORGANIZAT ION (PPO) BASIC FAMIL Y Jun 24, 2009 112 [id number] ABHILASH GARAY PATIENT [place] PREFERRED PROVIDER ORGANIZAT ION (PPO) BASIC FAMIL Y Jun 24, 2009 112 [id number] ABHILASH GARAY PATIENT [place] FEP DENTAL DENTAL INSURANCE BASIC Jul 12, 2009 DENTAL [id number] ABHILASH GARAY PATIENT [place] F[place] PREFERRED PROVIDER ORGANIZAT ION (PPO) BASIC FAMIL Y Jun 24, 2009 [id number] ABHILASH GARAY PATIENT [place] FEP ([id number]) PRESCRIPT ION FEPRX Jun 24, 2009 [id number] [phone] ABHILASH GARAY PATIENT [place] FEP BCBS PRESCRIPT ION CAREM ARK FEPRX PLAN Nov 21, 2021 [id number] ABHILASH GARAY PATIENT [place] FEPRX PLAN PRESCRIPT ION CAREM ARK FEPRX Nov 21, 2021 [id number] ABHILASH GARAY PATIENT [place]-F [place] BCBS PRESCRIPT ION FEP CAREM ARK Nov 21, 2021 [id number] ABHILASH GARAY PATIENT [place]-F EP BCBS PRESCRIPT ION FEP Jun 23, 2010 [id number] RUBI GARAYNETH PATIENT MEDICARE (WN) MEDICARE () PART A Feb 22, 2020 PART A [id number] [phone] ABHILASH GARAY PATIENT MEDICARE (WN) MEDICARE () PART A Feb 22, 2020 PART A [id number] [phone] ABHILASH GARAY PATIENT MEDICARE (WNR) MEDICARE (M) PART A Feb 22, 2020 PART A [id number] [phone] ABHILASH GARAY PATIENT MEDICARE (WNR) MEDICARE (M) PART A Feb 22, 2020 PART A [id number] ABHILASH GARAY PATIENT MEDICARE (WNR) MEDICARE (M) PART A Feb 22, 2020 PART A [id number] [phone] ABHILASH GARAY PATIENT Selected Encounter This section includes the information on record at [place] for the Encounter. Date/Time Encounter Type Encounter Description Reason Provider Source Apr 19, 2024 11:00 AM EXERCISE CLASS HEALTH/WELLBEING [facility]VS ICD-10-CM Y93.42 Activity, PAT Yoder IHFran Encounter Template Text not used by [place] Assessments - Encounter Diagnoses This section includes the primary and secondary diagnoses documented for the Encounter. Date/Time Primary/Secondary Diagnosis Diagnosis Name Provider Source Apr 19, 2024 02:37 PM PRIMARY Activity, PEDRO Yoder [facility] [place] [facility] Plan of [...] Appointment Type Appointme nt Facility Name Apr 22, 2024 09:00 AM AMBULATORY - MEDICINE [facility] [place] [facility] May 03, 2024 01:00 PM [place]ICINE [place] [facility] [place] [facility] May 17, 2024 01:00 PM [facility] May 28, 2024 07:30 AM AMBULATORY - MEDICINE [facility] [place] [facility] Jun 03, 2024 01:00 PM AMBULATORY - MEDICINE [facility] [place] [facility] Jun 08, 2024 03:00 PM AM[facility]ULATORY [place] [facility] [place] Jun 11, 2024 08:00 AM AMBULATORY - MEDICINE [place] [place] Jun 11, 2024 02:00 PM AMBULATORY [place] [facility] [place] Jun 14, 2024 10:30 AM [facility] [place] [facility] Jun 15, 2024 10:00 AM AMBULATORY [place] RE[facility] [place] Jun 22, 2024 11:30 AM [facility]INE [facility] [place] [facility] Jun 22, 2024 03:00 PM AMBULATORY - [facility] [place] Jun 24, 2024 01:00 PM [facility]INE [facility] [place] [facility] Jun 28, 2024 11:00 AM AMBULATORY - NONE [facility] [place] [facility] Jul 07, 2024 01:00 PM [facility] - MEDICINE [facility] Jul 23, 2024 01:30 PM [facility]ICINE [facility] [place] [facility] Aug 04, 2024 10:00 AM [facility]INE [facility] [place] [facility] Aug 25, 2024 10:30 AM [facility]INE [facility] [place] [facility] Sep 21, 2024 01:30 PM [facility]ORY - MEDICINE [facility] Oct 05, 2024 11:00 AM [facility] Active, Pending, and Scheduled Orders This section includes a listing of several types of active, pending, and scheduled orders, including clinic medications orders, diagnostic test orders, procedure orders and consult orders; where the start date of the order is 45 days before the date of the Encounter or 45 days after the date of theEncounter. The data comes from all [place] treatment facilities. Test Date/Time Test Type Test Details Facility Name Apr 08, 2024 12:00 AM Laboratory - Chemistry Order URINALYSIS URINE SP [place] Apr 15, 2024 03:06 PM Consult Order COMMUNITY CARE-NEUROLOGY Cons [facility]iting Professor[facility] [place] [facility] Jun 01, 2024 11:54 AM Consult Order COMMUNITY CARE-CI MASSAGE THERAPY Cons Visiting Professor's Choice [place] Lab Results: +/- 30 days of the [...] Range Comment Apr 15, 2024 11:16 AM [facility] CPK Specimen Type: SERUM No comment entered. Ordering Provider: JOHN PAUL DENNISON Report Released Date/Time: Apr 15, 2024 10:55 AM Reporting Lab: [address] [address] Performing Lab: [address] [address] CPK 67 U/L 30-200 Mar 31, 2024 09:16 AM [place] HEMOGLOBIN A1C PANEL Specimen Type: BLOOD Comment: [...] Apr 08, 2023 02:27 PM Reporting Lab: [address] [address] Performing Lab: [address] [address] HEMOGLOBIN A1C 5.2 4.0-5.6 Mar 31, 2024 09:16 AM [place] BASIC METABOLIC PANEL (fasting) Specime n Type: SERUM No comment entered. Ordering Provider: GREGG HARMON Report Released Date/Time: Apr 08, 2023 02:27 PM Reporting Lab: [address] [address] Performing Lab: [address] [address] UREA NITROGEN 20 mg/dL 7-25 GLUCOSE 100 mg/dL 65-100 SODIUM 140 mmol/L 135-145 POTASSIUM 4.2 mmol/L 3.5-5.0 CHLORIDE 109 mmol/L 100-110 CO2 23 meq/L 20-30 CREATININE, Serum 0.96 mg/dL 0.50-1.40 eGFR(CKD-EPI 2020) 86 mL/min >60 Mar 31, 2024 09:16 AM [place] LIPID PANEL FASTING Specimen Type: SERUM No comment entered. Ordering Provider: GREGG HARMON Report Released Date/Time: Apr 08, 2023 02:27 PM Reporting Lab: [address] [address] Performing Lab: [address] [address] CHOLESTEROL 164 mg/dL TRIGLYCERIDE 102 mg/dL 0-150 LDL calculated 101 mg/dL 0-129 CHOL/HDL 3.8 HDL CHOLESTEROL 43 mg/dL 40-60 Mar 31, 2024 09:16 AM [place] LIVER FUNCTION Specimen Type: SERUM No comment entered. Ordering Provider: GREGG HARMON Report Released Date/Time: Apr 08, 2023 02:27 PM Reporting Lab: [address] [address] Performing Lab: [address] [address] PROTEIN,TOTAL 6.0 g/dL 6.0-8.3 ALBUMIN 3.5 g/dL 3.5-5.0 ALKALINE PHOSPHATASE 70 U/L 40-150 AST 14 U/L 5-34 ALT 20 U/L BILIRUBIN, TOTAL 1.0 mg/dL 0.2-1.2 Mar 31, 2024 09:16 AM [place] CBC AND DIFF (AUTO) Specimen Type: BLOOD No comment entered. Ordering Provider: GREGG HARMON Report Released Date/Time: Apr 08, 2023 02:27 PM Reporting Lab: [address] [address] Performing Lab: [address] [address] WBC 4.01 10*3/uL L 4.50-11.00 RBC 4.67 [...] 10*3/uL 0.00-0.00 Mar 31, 2024 09:16 AM [place] TSH Specimen Type: SERUM No comment entered. Ordering Provider: GREGG HARMON Report Released Date/Time: Apr 08, 2023 02:27 PM Reporting Lab: [place] [facility] [address] [address] Performing Lab: [place] [place] [address] [address] TSH 2.67 u[IU]/mL 0.35-5.00 Social History: Smoking [...] 08, 2023 09:12 AM [facility]-TOBACCO NEVER USED [facility] Tobacco Use History This section includes a history of the smoking, or tobacco-related health factors, that were collected on or before the date of the Encounter. The data comes from the [place] facility where the Encounter took place. Date/Time Smoking Status/Tobacco Use Comment Gilberto boston Aug 09, 2021 09:20 AM VA-TOBACCO NEVER USED [facility] Encounter Notes: All associated encounter notes This section contains the clinical notes associated to the Encounter. Date/Time Encounter Note(s) Provider Source Apr 19, 2024 11:00 AM RECREATIONAL THERA PY NOTE: LOCAL TITLE: [facility]OGA WELLBEING STANDARD TITLE: RECREATIONAL THERAPY NOTE DATE OF NOTE: APR 19, 2024@11:00 ENTRY DATE: APR 19, 2024@14:36:32 AUTHOR: MAR YKATE MOORE COSIGNER: URGENCY: STATUS: [...] triangle pose, wide leg forward bend variations, [place] 2, extended side angle pose, [place] 1, plank, cobra, locust, downward facing dog, wisdom pose, contralateral limb raises, head to knee pose, bridge, reclined twist, knees to chest; Systematic Relaxation; and Gratitude. Modifications were geared toward the [place]'s individual needs and preferences. [place] was one of eight participants in Group Yoga, fully engaging in all the postures offered and modifying according to individual needs. [place] used a chair, yoga blocks, and a yoga belt for support as needed and used breath as a tool to enhance practice. will return to class as personal scheduling allows. /yunior/ ROXANNA [id number] Spreader Box Operator Signed: 04/19/2024 14:39 MARY KATE MOORE [facility]
--- OUTSIDE RECORDS SUMMARY | 2024-06-29 19:06 | XMS_ITS | Encounter Summary ---
Author Name [facility] [place] [facility] [place] [facility] [place] Address [address] [place] [id number] Care Team Providers Care Home Lighting Adviser Name Role Phone ABDIRAHMAN LAKE Primary Care [...] BASIC FAMIL Y Jun 24, 2009 [id number] [phone] ABHILASH GARAY PATIENT ANTHEM [place]BS [place] F[place] PREFERRED PROVIDER ORGANIZAT ION (PPO) FEP BASIC FAM Jun 24, 2009 112 [id number] [phone] ABHILASH GARAY PATIENT ANTHEM [place] F[place] PREFERRED PROVIDER ORGANIZAT ION (PPO) FEP BASIC FAM Jun 24, 2009 112 [id number] [phone] ABHILASH GARAY PATIENT ANTHEM [place] PREFERRED PROVIDER ORGANIZAT ION (PPO) FEP BASIC FAM Jun 24, 2009 112 [id number] [phone] ABHILASH GARAY PATIENT [place] PREFERRED PROVIDER ORGANIZAT ION (PPO) FEP BASIC FAM Jun 24, 2009 112 [id number] [phone] JEBYOLA ABHILASH PATIENT [place] F[place] PREFERRED PROVIDER ORGANIZAT ION (PPO) BASIC FAMIL Y Jun 24, 2009 112 [id number] DEJAHDANIKARUBI ACEVESNETH PATIENT [place] PREFERRED PROVIDER ORGANIZAT ION (PPO) BASIC FAMIL Y Jun 24, 2009 112 [id number] TANISHA ABHILASH PATIENT [place] PREFERRED PROVIDER ORGANIZAT ION (PPO) BASIC FAMIL Y Jun 24, 2009 112 [id number] TANISHARUBIABHILASH PATIENT [place] FEP DENTAL DENTAL INSURANCE BASIC Jul 12, 2009 DENTAL [id number] TANISHA ABHILASH PATIENT [place] F[place] PREFERRED PROVIDER ORGANIZAT ION (PPO) BASIC FAMIL Y Jun 24, 2009 112 [id number] [phone] JEBRUBI ACEVESNETH PATIENT [place] FEP ([id number]) PRESCRIPT ION FEPRX Jun 24, 2009 [id number] [phone] DEJAHDANIKARUBI ACEVESNETH PATIENT [place] FEP BCBS PRESCRIPT ION CAREM ARK FEPRX PLAN Nov 21, 2021 [id number] DEJAHDANIKARUBI ACEVESNETH PATIENT [place] FEPRX PLAN PRESCRIPT ION CAREM ARK FEPRX Nov 21, 2021 [id number] DEJAHDANIKARUBI ACEVESNETH PATIENT [place]-F EP BCBS PRESCRIPT ION FEP CAREM ARK Nov 21, 2021 [id number] TANISHARUBIABHILASH PATIENT [place]-F EP BCBS PRESCRIPT ION FEP Jun 23, 2010 [id number] ABHILASH GARAY PATIENT MEDICARE ([facility] MEDICARE () PART A Feb 22, 2020 PART A [id number] [phone] DEJAHDANIKAYOLA ABHILASH PATIENT MEDICARE (WNR) MEDICARE (M) PART A Feb 22, 2020 PART A [id number] ABHILASH GARAY PATIENT MEDICARE (WNR) MEDICARE (M) PART A Feb 22, 2020 PART A [id number] ABHILASH GARAY PATIENT MEDICARE (WNR) MEDICARE (M) PART A Feb 22, 2020 PART A [id number] ABHILASH GARAY PATIENT MEDICARE (WNR) MEDICARE (M) PART A Feb 22, 2020 PART A [id number] ABHILASH GARAY PATIENT Selected Encounter This section includes the information on record at [place] for the Encounter. Date/Time Encounter Type Encounter Description Reason Provider Source Apr 15, 2024 10:00 AM OFF/OP CONSLTJ NEW/EST HI [facility]INIC ICD-10-CM M54.16 Radiculopathy , lumbar region JOHN PAUL DENNISON [facility] Encounter Template Text not used by [place] Assessments - Encounter Diagnoses This section includes the primary and secondary diagnoses documented for the Encounter. Date/Time Primary/Secondary Diagnosis Diagnosis Name Provider Source Apr 16, 2024 11:05 AM PRIMARY Radiculopathy, lumbar region JUMAJOHN PAUL [facility] Apr 16, 2024 11:05 AM SECONDARY Low back pain, unspecified JUMAJOHN PAUL Slater [facility] Apr 16, 2024 11:05 AM SECONDARY Obstructive sleep apnea (adult) (pediatric) JUMAJOHN PAUL Bryon [facility] Apr 16, 2024 11:05 AM SECONDARY Other idiopathic peripheral autonomic [facility] Plan of Treatment: Future Appointments (+ 6 months) and Future Tests (+/- 45 days) The Plan of Treatment section includes future care activities for the patient from all [place] treatmentfacilities. This section includes future appointments and future orders which are active, pending or scheduled. Future Appointments This section includes appointments that were scheduled to occur 6 months from the date of the Encounter, up to a maximum of 20 appointments. The data comes from all [place] treatment facilities. Appointment Date/Time Appointment Type Appointme nt Facility Name Apr 19, 2024 11:00 AM AMBULATORY [facility]IC[facility] [place] Apr 22, 2024 09:00 AM [facility] [place] [facility] May 03, 2024 01:00 PM AMBULATORY [facility] MEDICINE [facility] [place] [facility] May 17, 2024 01:00 PM AMBULATORY - REHAB MEDICIN [facility] May 28, 2024 07:30 AM [facility]ULATORY - MEDICINE [facility] [place] [facility] Jun 03, 2024 01:00 PM AM[facility]ORY [facility] MEDIC[facility] [place] [facility] Jun 08, 2024 03:00 PM AMBULATORY - REHAB MED[facility]IN [facility] Jun 11, 2024 08:00 AM [facility]INE [facility] Jun 11, 2024 02:00 PM AMBULATORY - REHAB MEDICIN [facility] Jun 14, 2024 10:30 AM AM[facility]ORY - MEDICINE [facility] [place] [facility] Jun 15, 2024 10:00 AM AMBULATORY - REHAB MEDICIN [facility] Jun 22, 2024 11:30 AM [facility]ORY - MEDICINE [facility] [place] [facility] Jun 22, 2024 03:00 PM AMBULATORY - REHAB [facility]IN [facility] Jun 24, 2024 01:00 PM AM[facility]ATORY - MEDICINE [facility] [place] [facility] Jun 28, 2024 11:00 AM AMBULATORY - NONE [facility] [place] [facility] Jul 07, 2024 01:00 PM [facility]ORY - MEDICINE [facility] Jul 23, 2024 01:30 PM AMBUL[facility]ORY - MEDICINE [facility] [place] [facility] Aug 04, 2024 10:00 AM AMBULATORY - MEDICINE [facility] [place] [facility] Aug 25, 2024 10:30 AM AMBUL[facility]ORY - MEDICINE [facility] [place] [facility] Sep 21, 2024 01:30 PM [facility]ULATORY - MEDICINE [facility] Active, Pending, and Scheduled Orders This section includes a listing of several types of active, pending, and scheduled orders, including clinic medications orders, diagnostic test orders, procedure orders and consult orders; where the start date of the order is 45 days before the date of the Encounter or 45 days after the date of theEncounter. The data comes from all [place] treatment facilities. Test Date/Time Test Type Test Details Facility Name Apr 08, 2024 12:00 AM Laboratory - Chemistry Order URINALYSIS URINE [facility] Apr 15, 2024 03:06 PM Consult Order [facility]-NEUROLOGY Cons Spar Machine Operator's Choice [facility] Lab Results: +/- 30 days of the encounter This section includes the Chemistry and Hematology Lab Results on record with [place] for the patient. Radiology Reports and Pathology Reports are provided separately, in subsequent sections. Lab Results This section contains the Chemistry/Hematology Results that were resulted 30 days before or 30 daysafter the date of the Encounter. Date/Time Source Result Type Result - Unit Interpretation Reference Range Comment Apr 15, 2024 11:16 AM [facility] CPK Specimen Type: SERUM No comment entered. Ordering Provider: JOHN PAUL DENNISON Report Released Date/Time: Apr 15, 2024 10:55 AM Reporting Lab: [address] [address] Performing Lab: [address] [address] CPK 67 U/L 30-200 Mar 31, 2024 09:16 AM [facility] HEMOGLOBIN A1C PANEL Specimen Type: BLOOD Comment: [...] Apr 08, 2023 02:27 PM Reporting Lab: [address] [phone] Performing Lab: [address] [address] HEMOGLOBIN A1C 5.2 4.0-5.6 Mar 31, 2024 09:16 AM [facility] BASIC METABOLIC PANEL (fasting) Specime n Type: SERUM No comment entered. Ordering Provider: GREGG HARMON Report Released Date/Time: Apr 08, 2023 02:27 PM Reporting Lab: [address] [phone] Performing Lab: [address] [address] UREA NITROGEN 20 mg/dL 7-25 GLUCOSE 100 mg/dL 65-100 SODIUM 140 mmol/L 135-145 POTASSIUM 4.2 mmol/L 3.5-5.0 CHLORIDE 109 mmol/L 100-110 CO2 23 meq/L 20-30 CREATININE, Serum 0.96 mg/dL 0.50-1.40 eGFR(CKD-EPI 2020) 86 mL/min >60 Mar 31, 2024 09:16 AM [facility] LIPID PANEL FASTING Specimen Type: SERUM No comment entered. Ordering Provider: GREGG HARMON Report Released Date/Time: Apr 08, 2023 02:27 PM Reporting Lab: [address] [address] Performing Lab: [address] [address] CHOLESTEROL 164 mg/dL TRIGLYCERIDE 102 mg/dL 0-150 LDL calculated 101 mg/dL 0-129 CHOL/HDL 3.8 HDL CHOLESTEROL 43 mg/dL 40-60 Mar 31, 2024 09:16 AM [facility] LIVER FUNCTION Specimen Type: SERUM No comment entered. Ordering Provider: GREGG HARMON Report Released Date/Time: Apr 08, 2023 02:27 PM Reporting Lab: [address] [address] Performing Lab: [address] [address] PROTEIN,TOTAL 6.0 g/dL 6.0-8.3 ALBUMIN 3.5 g/dL 3.5-5.0 ALKALINE PHOSPHATASE 70 U/L 40-150 AST 14 U/L 5-34 ALT 20 U/L BILIRUBIN, TOTAL 1.0 mg/dL 0.2-1.2 Mar 31, 2024 09:16 AM [facility] TSH Specimen Type: SERUM No comment entered. Ordering Provider: GREGG HARMON Report Released Date/Time: Apr 08, 2023 02:27 PM Reporting Lab: [facility] [address] [address] Performing Lab: [facility] [address] [address] TSH 2.67 u[IU]/mL 0.35-5.00 Mar 31, 2024 09:16 AM [facility] CBC AND DIFF (AUTO) Specimen Type: BLOOD No comment entered. Ordering Provider: GREGG HARMON Report Released Date/Time: Apr 08, 2023 02:27 PM Reporting Lab: [facility] [address] [address] Performing Lab: [facility] [address] [phone] WBC 4.01 10*3/uL L 4.50-11.00 RBC 4.67 [...] and tobacco- related health factors from the [place] facility where the Encounter took place. Current Smoking Status This section includes the most current smoking, or tobacco-related health factor, from the [place] facility where the Encounter took place. Date/Time Current Smoking Status Comment Odalis casey Apr 08, 2023 09:12 AM VA-TOBACCO NEVER USED [facility] Tobacco Use History This section includes a history of the smoking, or tobacco-related health factors, that were collected on or before the date of the Encounter. The data comes from the [place] facility where the Encounter took place. Date/Time Smoking Status/Tobacco Use Comment Gilberto boston Aug 09, 2021 09:20 AM VA-TOBACCO NEVER USED [facility] Encounter Notes: All associated encounter notes This section contains the clinical notes associated to the Encounter. Date/Time Encounter Note(s) Provider Source Apr 15, 2024 09:53 AM PAIN MEDICINE CONSULT: LOCAL TITLE: CONSULT REPORT/PAIN CLINIC STANDARD TITLE: PAIN MEDICINE CONSULT DATE OF NOTE: APR 15, 2024@09:53 ENTRY DATE: APR 15, 2024@09:53:11 AUTHOR: JOHN PAUL DENNISON EXP COSIGNER: URGENCY: STATUS: COMPLETED In response to request for consultation this patient was seen by pain clinic physician John Paul Dennison M.D. 70 minutes time spent for interpersonal patient visit, chart review, documentation, patient education, and care coordination. PMH: Active problems - Computerized Problem List is the source for the followin. CLBP - chronic low back pain 2. Primary malignant neoplasm of skin path report from 2022 to scan 3. 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 GLENN - Obstructive sleep apnea sleep study 2022 5. Atrial fibrillation 6. Paresthesia 7. Restless legs syndrome 8. History of pulmonary embolus 9. Kidney stone see cat scan [facility] from 07/2020 10. Benign essential hypertension 11. Hyperlipidemia 12. Onychomycosis of toenails 13. Onychomycosis of toenails 14. Low back pain 15. Scoliosis 16. Gastroesophageal reflux disease 17. Thyroid nodule 18. Gastroesophageal reflux disease egd 04/05 dr whitt 19. THYROID NODULE see 03/2012 cat scan report 20. Tinea Pedis * 21. Ulcer of other part of Foot 22. Cellulitis and abscess of foot, except toes 23. Osteoarthritis * 24. Dermatitis or Eczema * 25. Color Blindness 26. Colorectal Cancer Screening Results documented and Reviewed (PV1) (Includes: colonoscopy 2006 +4 hyperplastic polyps [facility] 27. LIVER CYST found on ct scan 11/27 28. Back Strain 29. Kidney Stones 30. Scoliosis * 31. HYPERLIPIDEMIA NEC/NOS PCP at [facility] is Dr. Bhakti Reyes PAIN HISTORY: LOCATION(S): Toes of both feet fall asleep, right a bit worse than left Right hip more than left middle back both knees both shoulders ONSET AND COURSE: Pain issues started in [place] with back pain, and he was found to have scoliosis. He just lived with it. He does not recall any significant injuries causing his pain. Numbness in toes started 5-10 years ago, getting a bit worse. currently toes are numb. Gets burning pain at times. He was seen at [facility] 03/15; he says no recommendations were made. He was not looking for surgical intervention. No records available from visit. MRI December 2023: multilevel disc disease most severe at L4-5 with crowding of crossing L5 nerve root and also impacting exiting L4 NUMERIC PAIN RATINGS (0-10): CURRENT = 6-7 primarily in toes, USUAL = 6-7, BEST/LEAST = 5/10, WORST = 7-8 mostly in toes EXACERBATING FACTORS: After salty snacks his foot pain is worse about 20 minutes later. Walking too much, distance varies. Sitting too long causes right hip and feet to fall asleep. ALLEVIATING FACTORS: Changing position. PREVIOUS TREATMENTS: Acupuncture, not helpful Chiropractic, not helpful PT for back was not helpful No injections No surgery Tried Gerofit but could not do the walking. Uses rollator walker at car shows. CURRENT FUNCTIONING/TYPICAL DAY: Spends a lot of time sitting at home, doing jigsaw puzzles. PATIENT GOAL(S): wants to decrease foot pain and tingling in toes. MEDICATIONS: Active Outpatient Medications Status 1) ACETAMINOPHEN 500MG TAB TAKE ONE TABLET BY MOUTH ACTIVE THREE TIMES DAILY NEEDED FOR PAIN -- uses about once per month 2) ALLOPURINOL 100MG TAB TAKE ONE TABLET BY MOUTH ONCE ACTIVE DAILY FOR GOUT -- takes daily, never had a gout attack 3) ATORVASTATIN CALCIUM 10MG TAB TAKE ONE TABLET BY ACTIVE (S) MOUTH AT BEDTIME FOR HIGH CHOLESTEROL -- takes daily for a couple of years. 4) CAMPHOR/MENTHOL/METHYL SALICYLATE PATCH APPLY 1 PATCH ACTIVE TOPICALLY ONCE DAILY NEEDED FOR PAIN (REMOVE PATCH AFTER 8 TO 12 HOURS) -- tried it once, no help 5) DILTIAZEM (EQV-CARDIZEM) 120MG 24HR CAP TAKE ONE ACTIVE (S) CAPSULE BY MOUTH ONCE DAILY FOR HIGH BLOOD PRESSURE -- takes daily 6) KETOCONAZOLE 2% SHAMPOO SHAMPOO TO DAMP HAIR ACTIVE TOPICALLY DIRECTED BY PROVIDER LEAVE IN FOR 5 MINUTES AND RINSE OUT. USE WHEN SHAMPOOING 7) LEVOTHYROXINE NA (SYNTHROID) 125MCG TAB TAKE ONE ACTIVE (S) TABLET BY MOUTH EVERY MORNING 30 MINUTES BEFORE BREAKFAST FOR THYROID TAKE ON AN EMPTY STOMACH WITH A FULL GLASS OF WATER -- takes daily 8) METOPROLOL SUCCINATE 50MG SA TAB TAKE ONE TABLET BY ACTIVE (S) MOUTH ONCE DAILY FOR BLOOD PRESSURE/HEART -- takes daily 9) POTASSIUM CITRATE 10MEQ SA TAB TAKE TWO TABLETS BY ACTIVE MOUTH TWICE DAILY -- taking for kidney stones 10) RIVAROXABAN 20MG TAB TAKE ONE TABLET BY MOUTH ONCE ACTIVE (S) DAILY TO PREVENT BLOOD CLOTS (TAKE WITH FOOD) -- takes daily for PE that occurred in setting of Covid in 2022. Active Non-VA Medications Status 1) Non-VA FISH OIL 500MG DHA/EPA CAP,ORAL BY MOUTH ACTIVE DAILY -- taking 2) Non-VA MULTIVITAMIN/MINERALS CAP/TAB 1 TABLET BY ACTIVE MOUTH EVERY DAY -- taking 3) Non-VA NIACIN TAB BY MOUTH -- taking ACTIVE Milk Thistle ALLERGIES: gabapentin caused nightmares. FAMILY HISTORY: Father at about 77, he had myasthenia gravis. Mother after a fall, hip fracture and CVA in her 80's. No siblings. Raised by both parents. HISTORY: [employer] 03/07/1978 TO 04/10/1981 [employer] 12/18/1973 TO 12/06/1977 [employer]. E-5. No combat exposure. Had left leg vein surgery, and broke one of his toes. SC Percent: 50% Rated Disabilities: LUMBOSACRAL OR CERVICAL STRAIN (40%-SC) VARICOSE VEINS (10%-SC) TINNITUS (10%-SC) IMPAIRED HEARING (0%-SC) RESIDUALS OF FOOT INJURY (0%-SC) SOCIAL HISTORY: Lives in [place] with of 40 years. No kids. EDUCATIONAL AND OCCUPATIONAL HISTORY: After worked in [employer] for 5 years, then [employer] for 25 years. Retired in 2021 from [employer] service. PSYCHIATRIC HISTORY: No history of mental health issues. He says he loves life. HISTORY OF NEGLECT/ABUSE/TRAUMA/VIOLEN CE: No childhood trauma. SUBSTANCE USE HISTORY: Tobacco: never smoked Alcohol: none. quit 2 years ago when had Covid. Prior to that was drinking a carafe of wine per day. Marijuana: none DIET: 3 meals per day. EXERCISE: No exercise regimen. Does chair yoga twice per week. Does aquatherapy at [facility], referred for that. SLEEP: Has restless leg syndrome. Uses CPAP for sleep apnea, sleeps well with that. LIMITED REVIEW OF SYSTEMS: Const: gaining weight lately. steady weight gain of about 90 # in 20 years, up 10# in past year. Suicide Screen: C-SSRS Screening [place]-Suicide Severity Rating Scale (C-SSRS Screener) 1. Over the past month, have you wished you were or wished you could go to sleep and not wake up? No 2. Over the past month, have you had any actual thoughts of killing yourself? No 7. In your lifetime, have you ever done anything, started to do anything, or prepared to do anything to end your life (for example, collected pills, obtained a gun, gave away valuables, went to the roof but didn't jump)? No LIMITED PHYSICAL EXAMINATION: Slow gait with upright posture. Neck full ROM nontender. Shoulders full ROM nontender. Lumbar full ROM, discomfort with back bend, right ipsilateral pain with sidebend. No lumbosacral tenderness. LE motor 5/5. LE sensory: subjective decreased light touch below knees. Mild discomfort in groin with abduction of hips. ASSESSMENT: 69 year old non-combat [place] 50% service connected for back, foot and hearing issues. He grew up with both parents and had no history of childhood trauma or abuse. He was a moderately heavy drinker for many years but quit alcohol in 2021 after having a severe illness from [employer]. He does not use tobacco or marijuana. He retired from the [employer] in 2021 after working there for 25 years. He lives in [facility] with his of 40 years; they have no children. He started with some back pain issues in the [place] in the s. He was told he had scoliosis but did not have any specific treatment. He was bothered by pain off and on for many years. He does not recall any inciting injuries or trauma. About 10 years ago he started having numbness in his toes. This has gradually gotten worse, and is painful at times. He also has pain in his right hip that radiates down to the foot, and at times has similar discomfort on the left side. He had lumbar MRI in December 2023 which showed multilevel disc disease most severe at L4-5 with crowding of the crossing L5 nerve root and also impacting the exiting L4 nerve root. His symptoms now seem to be a combination of lumbar radiculopathy and peripheral neuropathy. He is not currently taking any medication for pain. He currently gets a small amount of exercise. He does chair yoga twice weekly and recently did some pool therapy. Walking tends to be painful for him. He reports no history of mental health issues. He has sleep apnea and reports sleeping pretty well using CPAP. PLAN: 1. Referral for EMG/NCS to try to determine relative contributions of lumbar radiculopathy vs peripheral neuropathy. 2. Will initiate trial of pregabalin, starting with 25 mg bid, for neuropathic pain. 3. We discussed how a gently progressive walking program may be helpful for neuropathic pain; he expressed willingness to try it. 4. He declined referral to [facility] class at this time. 5. f/u 6 weeks /es/ John Paul Dennison MD STAFF PHYSICIAN Signed: 04/16/2024 11:05 JOHN PAUL DENNISON [place] [facility]
--- OUTSIDE RECORDS SUMMARY | 2024-06-29 19:06 | XMS_ITS | Encounter Summary ---
Author Name [facility] [facility] [place] [facility] [place] [facility] [place] Address [address] [place] [address] Care Team Providers Care Showroom Salesperson Name Role Phone ABDIRAHMAN LA[place] Primary Care [...] BASIC FAMIL Y Jun 24, 2009 112 [id number] [phone] ABHILASH GARAY PATIENT ANTHEM BCBS [place] FEP PREFERRED PROVIDER ORGANIZAT ION (PPO) FEP BASIC FAM Jun 24, 2009 112 [id number] [phone] ABHILASH GARAY PATIENT ANTHEM BCBS [place] F[place] PREFERRED PROVIDER ORGANIZAT ION (PPO) FEP BASIC FAM Jun 24, 2009 112 [id number] [phone] ABHILASH GARAY PATIENT ANTHEM [place] F[place] PREFERRED PROVIDER ORGANIZAT ION (PPO) FEP BASIC FAM Jun 24, 2009 112 [id number] [phone] ABHILASH GARAY PATIENT [place] PREFERRED PROVIDER ORGANIZAT ION (PPO) FEP BASIC FAM Jun 24, 2009 112 [id number] [phone] RUBI GARAYNETH PATIENT BCBS [place] FEP PREFERRED PROVIDER ORGANIZAT ION (PPO) BASIC FAMIL Y Jun 24, 2009 112 [id number] RUBI GARAYNETH PATIENT [place] PREFERRED PROVIDER ORGANIZAT ION (PPO) BASIC FAMIL Y Jun 24, 2009 112 [id number] RUBI GARAYNETH PATIENT [place] PREFERRED PROVIDER ORGANIZAT ION (PPO) BASIC FAMIL Y Jun 24, 2009 112 [id number] RUBI GARAYNETH PATIENT [place] FEP DENTAL DENTAL INSURANCE BASIC Jul 12, 2009 DENTAL [id number] [phone] DEJAHDANIKARUBI ACEVESNETH PATIENT [place] F[place] PREFERRED PROVIDER ORGANIZAT ION (PPO) BASIC FAMIL Y Jun 24, 2009 112 [id number] [phone] ABHILASH GARAY PATIENT [place] FEP ([id number]) PRESCRIPT ION FEPRX Jun 24, 2009 [id number] [phone] ABHILASH GARAY PATIENT [place] FEP BCBS PRESCRIPT ION CAREM ARK FEPRX PLAN Nov 21, 2021 [id number] ABHILASH GARAY PATIENT [place] FEPRX PLAN PRESCRIPT ION CAREM ARK FEPRX Nov 21, 2021 [id number] ABHILASH GARAY PATIENT [place]-F EP BCBS PRESCRIPT ION FEP CAREM ARK Nov 21, 2021 [id number] ABHILASH GARAY PATIENT [place]-F EP BCBS PRESCRIPT ION FEP Jun 23, 2010 [id number] RUBI GARAYNETH PATIENT MEDICARE ([facility]) MEDICARE () PART A Feb 22, 2020 PART A [id number] ABHILASH GARAY PATIENT MEDICARE (WNR) MEDICARE (M) PART A Feb 22, 2020 PART A [id number] [phone] ABHILASH GARAY PATIENT MEDICARE (WNR) MEDICARE (M) PART A Feb 22, 2020 PART A [id number] ABHILASH GARAY PATIENT MEDICARE (WNR) MEDICARE (M) PART A Feb 22, 2020 PART A [id number] ABHILASH GARAY PATIENT MEDICARE (WNR) MEDICARE (M) PART A Feb 22, 2020 PART A [id number] ABHILASH GARAY PATIENT Selected Encounter This section includes the information [place] at [place] for the Encounter. Date/Time Encounter Type Encounter Description Reason Pro vider Source Apr 21, 2024 09:53 AM Outpatient Encounter ADMIN PAT ACTIVTIES (MASNONCT) IHE Encounter Template Text not used by [place] Plan of Treatment: Future Appointments (+ 6 [...] 22, 2024 09:00 AM AMBULATORY - MEDICINE [facility] [place] [facility] May 03, 2024 01:00 PM AMBULATORY - MEDICINE [facility] [place] [facility] May 17, 2024 01:00 PM AMBULATORY - REHAB MEDICIN [facility] May 28, 2024 07:30 AM AMBULATORY - MEDICINE [facility] [place] [facility] Jun 03, 2024 01:00 PM AMBULATORY [place]ICINE [place] [facility] [facility] Jun 08, 2024 03:00 PM AMBULATORY - REHAB MEDICIN [facility] Jun 11, 2024 08:00 AM AMBULATORY [facility] MEDICINE [facility] Jun 11, 2024 02:00 [facility] 14, [facility]24 10:30 AM AM[place] [facility] Jun 15, 2024 10:00 AM AMBULATORY - REHAB MEDICIN [facility] Jun 22, 2024 11:30 AM [place] [facility] [place] [facility] Jun 22, 2024 03:00 PM AMBULATORY - REHAB MEDICIN [facility] Jun 24, 2024 01:00 PM [facility]ULAT[facility]INE [facility] [place] [facility] Jun 28, 2024 11:00 AM AMBULATORY - NONE [place] [facility] [place] [facility] Jul 07, 2024 01:00 PM AMBULATORY - MEDICINE [facility] Jul 23, 2024 01:30 PM AMBULATORY - [place]ICINE [place] [facility] [place] [facility] Aug 04, 2024 10:00 AM AM[facility]UL[facility]INE [place] [facility] [place] [facility] Aug 25, 2024 10:30 AM AM[facility]ICINE [place] [facility] [place] [facility] Sep 21, 2024 01:30 PM AMBULATORY - MEDICINE [place] [place] Oct 05, 2024 11:00 AM AMBULATORY - [...] of theEncounter. The data comes from all [place] treatment facilities. Test Date/Time Test Type Test Details Facility Name Apr 08, 2024 12:00 AM Laboratory - Chemistry Order URINALYSIS URINE [facility] Apr 15, 2024 03:06 PM Consult Order COMMUNITY CARE-NEUROLOGY Cons Educational Manager's Choice [place] [facility] [place] [facility] Jun 01, 2024 11:54 AM Consult Order COMM[facility]ITY [facility] MASS[facility] THERAPY Cons Educational Manager's Choice [facility] Lab Results: +/- 30 days of the [...] Range Comment Apr 15, 2024 11:16 AM [place] [facility] [place] [facility] CPK Specimen Type: SERUM No comment entered. Ordering Provider: JOHN PAUL DENNISON Report Released Date/Time: Apr 15, 2024 10:55 AM Reporting Lab: [address] [address] Performing Lab: [address] [address] CPK 67 U/L 30-200 Mar 31, 2024 09:16 AM [facility] HEMOGLOBIN A1C PANEL Specimen Type: BLOOD Comment: [...] Apr 08, 2023 02:27 PM Reporting Lab: [address] [address] Performing Lab: [address] [address] HEMOGLOBIN A1C 5.2 4.0-5.6 Mar 31, 2024 09:16 AM [facility] BASIC METABOLIC PANEL (fasting) Specime n Type: SERUM No comment entered. Ordering Provider: GREGG HARMON Report Released Date/Time: Apr 08, 2023 02:27 PM Reporting Lab: [address] [address] Performing Lab: [address] [address] UREA NITROGEN 20 mg/dL 7-25 GLUCOSE 100 mg/dL 65-100 SODIUM 140 mmol/L 135-145 POTASSIUM 4.2 mmol/L 3.5-5.0 CHLORIDE 109 mmol/L 100-110 CO2 23 meq/L 20-30 CREATININE, Serum 0.96 mg/dL 0.50-1.40 eGFR(CKD-EPI 2020) 86 mL/min >60 Mar 31, 2024 09:16 AM [facility] TSH Specimen Type: SERUM No comment entered. Ordering Provider: GREGG HARMON Report Released Date/Time: Apr 08, 2023 02:27 PM Reporting Lab: [facility] [address] Performing Lab: [facility] [address] [address] TSH 2.67 u[IU]/mL 0.35-5.00 Mar 31, 2024 09:16 AM [facility] LIPID PANEL FASTING Specimen Type: SERUM No comment entered. Ordering Provider: GREGG HARMON Report Released Date/Time: Apr 08, 2023 02:27 PM Reporting Lab: [facility] [address] [address] Performing Lab: [facility] [address] [address] CHOLESTEROL 164 mg/dL TRIGLYCERIDE 102 mg/dL 0-150 LDL calculated 101 mg/dL 0-129 CHOL/HDL 3.8 HDL CHOLESTEROL 43 mg/dL 40-60 Mar 31, 2024 09:16 AM [facility] LIVER FUNCTION Specimen Type: SERUM No comment entered. Ordering Provider: GREGG HARMON Report Released Date/Time: Apr 08, 2023 02:27 PM Reporting Lab: [facility] [address] Performing Lab: [facility] [address] [address] PROTEIN,TOTAL 6.0 g/dL 6.0-8.3 ALBUMIN 3.5 g/dL 3.5-5.0 ALKALINE PHOSPHATASE 70 U/L 40-150 AST 14 U/L 5-34 ALT 20 U/L BILIRUBIN, TOTAL 1.0 mg/dL 0.2-1.2 Mar 31, 2024 09:16 AM [facility] CBC AND DIFF (AUTO) Specimen Type: BLOOD No comment entered. Ordering Provider: GREGG HARMON Report Released Date/Time: Apr 08, 2023 02:27 PM Reporting Lab: [facility] [address] [address] Performing Lab: [facility] [address] [address] WBC 4.01 10*3/uL L 4.50-11.00 RBC 4.67 [...] Facil ity Apr 08, 2023 09:12 AM [place]-TOBACCO NEVER USED [place] [facility] [place] [facility] Tobacco Use History This section includes a history of the smoking, or tobacco-related health factors, that were collected on or before the date of the Encounter. The data comes from the [place] facility where the Encounter took place. Date/Time Smoking Status/Tobacco Use Comment F acility Aug 09, 2021 09:20 AM [place]-TOBACCO [place] USED [place] [facility] [facility] Encounter Notes: All associated encounter notes This section contains the clinical notes associated to the Encounter. Date/Time Encounter Note(s) Provider Source Apr 26, 2024 12:04 PM ADDENDUM: LOCAL TITLE: Addendum STANDARD TITLE: ADDENDUM DATE OF NOTE: APR 26, 2024@12:04:35 ENTRY DATE: APR 26, 2024@12:04:37 AUTHOR: RADHIKA GOMEZ COSIGNER: URGENCY: STATUS: COMPLETED called PACT and was transferred to author by call center staff. is following up about status of request for Walkasins for his peripheral neuropathy. Author advised that his request had been forwarded to PCP and prosthetics staff and response is pending. Author inquired if these were recommended to him by a healthcare provider and he advised that he had googled them. Bohannon states that they were available through the [facility] and he thinks they should be available through [facility] also. Author advised will contact him when more information is available. /es/ BREANNA BAKER RN-BC REGISTERED NURSE Signed: 04/26/2024 12:07 Receipt Acknowledged By: 04/26/2024 12:16 /es/ JEAN CLAUDE MENDEZ CERTIFIED NURSE PRACTITIONER 04/27/2024 13:12 /es/ John Paul Dennison MD STAFF PHYSICIAN === --- Original Document --- 04/21/24 CCC: SCHEDULING ADMINISTRATION: Patient Demographics Patient Name: ABHILASH GARAY Patient Primary Phone: [phone] Patient Primary [address]: [address] [place] [id number] Patient : 1955 Patient Age: 69 Call Back Number: Caller/Recipient Relation to Patient: Self Administrative Administrative Note Reason: Other Administrative Note Comments: Bohannon requests a call back to discuss getting WALKASKINS for Neuropathy. IMPORTANT: This note was created by [place] [facility] Clinical Contact Center staff. Please do not alert the staff member by adding them as a signer for future communications. Alerts are not monitored by this user. /yunior/ NENITA LAWSON ADVANCED DOCUMENT RESTORER Signed: 04/21/2024 09:54 Receipt Acknowledged By: 04/21/2024 14:46 /yunior/ BREANNA BAKER REGISTERED NURSE 04/22/2024 08:07 /yunior/ EUGENIE SALVADOR LPN Licensed Practical Nurse 04/21/2024 ADDENDUM STATUS: COMPLETED forwarding request for consideration of Walkasins for use due to neuropathy symptoms to PCP for review and prosthetics staff to advise whether this product is available through [place]. /yunior/ BREANNA BAKER REGISTERED NURSE Signed: 04/21/2024 14:47 Receipt Acknowledged By: 04/22/2024 13:30 /oriana BLISS MD PRIMARY CARE PHYSICIAN * AWAITING SIGNATURE * NATIVIDAD MCGEE 04/22/2024 ADDENDUM STATUS: COMPLETED Please find more information about patient request. Thank you /oriana BLISS MD PRIMARY CARE PHYSICIAN Signed: 04/22/2024 13:31 Receipt Acknowledged By: 04/26/2024 10:10 /BREANNA Gillespie REGISTERED NURSE RADHIKA GOMEZ [place] [facility] [place] [facility] Apr 22, 2024 01:31 PM ADDENDUM: LOCAL TITLE: Addendum STANDARD TITLE: ADDENDUM DATE OF NOTE: APR 22, 2024@13:31:01 ENTRY DATE: APR 22, 2024@13:31:03 AUTHOR: VESTA BLISS EXP COSIGNER: URGENCY: STATUS: COMPLETED Please find more information about patient request. Thank you /oriana BLISS MD PRIMARY CARE PHYSICIAN Signed: 04/22/2024 13:31 Receipt Acknowledged By: 04/26/2024 10:10 /BREANNA Gillespie REGISTERED NURSE === --- Original Document --- 04/21/24 CCC: SCHEDULING ADMINISTRATION: Patient Demographics Patient Name: ABHILASH GARAY Patient Primary Phone: [phone] Patient Primary Address: [address] [place] [address] Patient : 1955 Patient Age: 69 Call Back Number: Caller/Recipient Relation to Patient: Self Administrative Administrative Note Reason: Other Administrative Note Comments: requests a call back to discuss getting WALKASKINS for Neuropathy. IMPORTANT: This note was created by [facility] Clinical Contact Center staff. Please do not alert the staff member by adding them as a signer for future communications. Alerts are not monitored by this user. /yunior/ NENITA LAWSON ADVANCED DOCUMENT RESTORER Signed: 04/21/2024 09:54 Receipt Acknowledged By: 04/21/2024 14:46 /es/ BREANNA BAKER RN-RONI REGISTERED NURSE 04/22/2024 08:07 /es/ EUGENIE SALVADOR LPN Licensed Practical Nurse 04/21/2024 ADDENDUM STATUS: COMPLETED forwarding request for consideration of Walkasins for use due to neuropathy symptoms to PCP for review and prosthetics staff to advise whether this product is available [place]. /yunior/ BREANNA BAKER REGISTERED NURSE Signed: 04/21/2024 14:47 Receipt Acknowledged By: 04/22/2024 13:30 /es/ VESTA BLISS MD PRIMARY CARE PHYSICIAN * AWAITING SIGNATURE * NATIVIDAD MCGEE CARMEN F [place] [facility] [facility] Apr 21, 2024 02:46 PM ADDENDUM: LOCAL TITLE: Addendum STANDARD TITLE: ADDENDUM DATE OF NOTE: APR 21, 2024@14:46:15 ENTRY DATE: APR 21, 2024@14:46:16 AUTHOR: RADHIKA GOMEZ COSIGNER: URGENCY: STATUS: COMPLETED forwarding request for consideration of Walkasins for use due to neuropathy symptoms to PCP for review and prosthetics staff to advise whether this product is available [place]. /yunior/ BREANNA BAKER RN-BC REGISTERED NURSE Signed: 04/21/2024 14:47 Receipt Acknowledged By: 04/22/2024 13:30 /es/ VESTA BLISS MD PRIMARY CARE PHYSICIAN * AWAITING SIGNATURE * NATIVIDAD MCGEE === --- Original Document --- 04/21/24 CCC: SCHEDULING ADMINISTRATION: Patient Demographics Patient Name: ABHILASH GARAY Patient Primary Phone: [phone] Patient Primary [address]: [address] [place] [address] Patient : 1955 Patient Age: 69 Call Back Number: Caller/Recipient Relation to Patient: Self Administrative Administrative Note Reason: Other Administrative Note Comments: Bohannon requests a call back to discuss getting WALKASKINS for Neuropathy. IMPORTANT: This note was created by [place] [facility] Clinical Contact Center staff. Please do not alert the staff member by adding them as a signer for future communications. Alerts are not monitored by this user. /yunior/ NENITA LAWSON ADVANCED DOCUMENT RESTORER Signed: 04/21/2024 09:54 Receipt Acknowledged By: 04/21/2024 14:46 /es/ BREANNA BAKER RN-RONI REGISTERED NURSE 04/22/2024 08:07 /es/ EUGENIE SALVADOR LPN Licensed Practical Nurse RADHIKA GOMEZ [facility] Apr 21, 2024 09:53 AM ADMINISTRATIVE NOT E: LOCAL TITLE: CCC: SCHEDULING ADMINISTRATION STANDARD TITLE: ADMINISTRATIVE NOTE DATE OF NOTE: APR 21, 2024@09:53:54 ENTRY DATE: APR 21, 2024@09:53:54 AUTHOR: NENITA LAWSON EXP COSIGNER: URGENCY: STATUS: COMPLETED CCC: SCHEDULING ADMINISTRATION Has ADDENDA Patient Demographics Patient Name: ABHILASH GARAY Patient Primary Phone: [phone] Patient Primary [address]: [address] [place] [address] Patient : 1955 Patient Age: 69 Call Back Number: Caller/Recipient Relation to Patient: Self Administrative Administrative Note Reason: Other Administrative Note Comments: Bohannon requests a call back to discuss getting WALKASKINS for Neuropathy. IMPORTANT: This note was created by [facility] Clinical Contact Center staff. Please do not alert the staff member by adding them as a signer for future communications. Alerts are not monitored by this user. /oriana LAWSON ADVANCED DOCUMENT RESTORER Signed: 04/21/2024 09:54 Receipt Acknowledged By: 04/21/2024 14:46 /BREANNA Gillespie REGISTERED NURSE 04/22/2024 08:07 /yunior/ EUGENIE SALVADOR LPN Licensed Practical Nurse 04/21/2024 ADDENDUM STATUS: COMPLETED forwarding request for consideration of Walkasins for use due to neuropathy symptoms to PCP for review and prosthetics staff to advise whether [place] product [place]. /BREANNA Gillespie REGISTERED NURSE Signed: 04/21/2024 14:47 Receipt Acknowledged By: 04/22/2024 13:30 /yunior/ VESTA BLISS MD PRIMARY CARE PHYSICIAN * AWAITING SIGNATURE * NATIVIDAD MCGEE 04/22/2024 ADDENDUM STATUS: COMPLETED Please find more information about patient request. Thank you /oriana BLISS MD PRIMARY CARE PHYSICIAN Signed: 04/22/2024 13:31 Receipt Acknowledged By: 04/26/2024 10:10 /BREANNA Gillespie REGISTERED NURSE 04/26/2024 ADDENDUM STATUS: COMPLETED Bohannon called [facility]CT and was transferred to author by call center staff. is following up about status of request for Walkasins for his peripheral neuropathy. Author advised that his request had been forwarded to PCP and prosthetics staff and response is pending. Author inquired if these were recommended to him by a healthcare provider and he advised that he had googled them. Bohannon states that they were available through the [facility] and he thinks they should be available through [facility] also. Author advised will contact him when more information is available. /yunior/ STEF BAKERN RN-BC REGISTERED NURSE Signed: 04/26/2024 12:07 Receipt Acknowledged By: * AWAITING SIGNATURE * ABDIRAHMAN [place] * AWAITING SIGNATURE * JOHN PAUL DENNISON,[facility]
--- OUTSIDE RECORDS SUMMARY | 2024-06-29 19:06 | XMS_ITS | Encounter Summary ---
Author Name [facility] [place] [facility] [place] [facility] [facility] [place] Address [address] [place] [address] Care Team Providers Care Tugger Operator Name Role Phone ABDIRAHMAN [place] Primary [...] BASIC FAMIL Y Jun 24, 2009 [id number] [phone] ABHILASH GARAY PATIENT ANTHEM BCBS [place] FEP PREFERRED PROVIDER ORGANIZAT ION (PPO) FEP BASIC FAM Jun 24, 2009 112 [id number] [phone] ABHILASH GARAY PATIENT ANTHEM [place] F[place] PREFERRED PROVIDER ORGANIZAT ION (PPO) FEP BASIC FAM Jun 24, 2009 112 [id number] [phone] ABHILASH GARAY PATIENT ANTHEM [place] F[place] PREFERRED PROVIDER ORGANIZAT ION (PPO) FEP BASIC FAM Jun 24, 2009 112 [id number] [phone] ABHILASH GARAY PATIENT [place] F[place] PREFERRED PROVIDER ORGANIZAT ION (PPO) FEP BASIC FAM Jun 24, 2009 112 [id number] [phone] RUBI GARAYNETH PATIENT [place] FEP PREFERRED PROVIDER ORGANIZAT ION (PPO) BASIC FAMIL Y Jun 24, 2009 112 [id number] ABHILASH GARAY PATIENT [place] PREFERRED PROVIDER ORGANIZAT ION (PPO) BASIC FAMIL Y Jun 24, 2009 112 [id number] ABHILASH GARAY PATIENT [place] F[place] PREFERRED PROVIDER ORGANIZAT ION (PPO) BASIC FAMIL Y Jun 24, 2009 112 [id number] RUBI GARAYNETH PATIENT [place] FEP DENTAL DENTAL INSURANCE BASIC Jul 12, 2009 DENTAL [id number] [phone] DEJAHDANIKARUBI ACEVESNETH PATIENT [place] F[place] PREFERRED PROVIDER ORGANIZAT ION (PPO) BASIC FAMIL Y Jun 24, 2009 112 [id number] [phone] ABHILASH GARAY PATIENT [place] FEP ([id number]) PRESCRIPT ION FEPRX Jun 24, 2009 [id number] [phone] ABHILASH GARAY PATIENT [place] FEP BCBS PRESCRIPT ION CAREM ARK FEPRX PLAN Nov 21, 2021 [id number] ABHILASH GARAY PATIENT [place] FEPRX PLAN PRESCRIPT ION CAREM ARK FEPRX Nov 21, 2021 [id number] ABHILASH GARAY PATIENT [place]-F [place] BCBS PRESCRIPT ION FEP CAREM ARK Nov 21, 2021 [id number] DEJAHDANIKAABHILASH ACEVES PATIENT [place]-F EP BCBS PRESCRIPT ION FEP Jun 23, 2010 [id number] DEJAHDANIKARUBI ACEVESNETH PATIENT MEDICARE ([facility]) MEDICARE () PART A Feb 22, 2020 PART A [id number] RUBI GARAYNETH PATIENT MEDICARE (WNR) MEDICARE (M) PART A Feb 22, 2020 PART A [id number] ABHILASH GARAY PATIENT MEDICARE (WNR) MEDICARE (M) PART A Feb 22, 2020 PART A [id number] [phone] ABHILASH GARAY PATIENT MEDICARE (WNR) MEDICARE (M) PART A Feb 22, 2020 PART A [id number] ABHILASH GARAY PATIENT MEDICARE (WNR) MEDICARE (M) PART A Feb 22, 2020 PART A [id number] [phone] ABHILASH GARAY PATIENT Selected Encounter This section includes the information on record at [place] for the Encounter. Date/Time Encounter Type Encounter Description Reason Provider Source Apr 19, 2024 08:41 AM QNHP OL DIG ASSMT&MGMT 5-10 [facility] ICD-10-CM M54.16 Radiculopathy , lumbar region YASMIN REINA [facility] Encounter Template Text not used by [place] Assessments - Encounter Diagnoses This section includes the primary and secondary diagnoses documented for the Encounter. Date/Time Primary/Secondary Diagnosis Diagnosis Name Provider Source Apr 19, 2024 08:42 AM PRIMARY Radiculopathy, lumbar region YASMIN REINA [place] [facility] [place] [facility] Apr 19, 2024 08:42 AM SECONDARY Other idiopathic peripheral autonomic neuropathy YASMIN REINA [place] [facility] [place] [facility] Apr 19, 2024 08:42 AM SECONDARY Paresthesia of skin YASMIN REINA [facility] [place] [facility] Plan of Treatment: Future Appointments (+ [...] 22, 2024 09:00 AM AMBULATORY - MEDICINE [facility] [place] [facility] May 03, 2024 01:00 PM [facility] [place] [facility] May 17, 2024 01:00 PM AMBULATORY - REHAB [facility]IN [facility] May 28, 2024 07:30 AM AMBULATORY - MEDICINE [facility] [place] [facility] Jun 03, 2024 01:00 PM AMBULATORY - MEDICINE [facility] [place] [facility] Jun 08, 2024 03:00 PM AMBULATORY - RE[facility]AB [facility] Jun 11, 2024 08:00 AM [facility] [place] [facility]ICINE [facility] [place] Jun 11, 2024 02:00 PM AMBULATORY - REHAB [facility]IN [facility] Jun 14, 2024 10:30 AM AMBULATORY - MEDICINE [facility] [place] [facility] Jun 15, 2024 10:00 AM AMBULATORY - RE[facility]AB [facility]IN [facility] Jun 22, 2024 11:30 AM AMBULATORY - MEDICINE [facility] [place] [facility] Jun 22, 2024 03:00 PM AMBULATORY - RE[facility]AB [facility] Jun 24, 2024 01:00 PM AMBULATORY - MEDICINE [facility] [place] [facility] Jun 28, 2024 11:00 AM AMBULATORY - NONE [facility] [place] [facility] Jul 07, 2024 01:00 PM AMBULATORY - [facility]ICINE [place] Jul 23, 2024 01:30 PM AMBULATORY - MEDICINE [facility] [place] [facility] Aug 04, 2024 10:00 AM AMBULATORY - MEDICINE [facility] [place] [facility] Aug 25, 2024 10:30 AM AMBULATORY - MEDICINE [facility] [place] [facility] Sep 21, 2024 01:30 PM [facility]ORY - [facility]ICINE [place] Oct 05, 2024 11:00 AM AMBULATORY [facility] MED[facility] Active, Pending, and Scheduled Orders This section includes a listing of several types of active, pending, and scheduled orders, including clinic medications orders, diagnostic test orders, procedure orders and consult orders; where the start date of the order is 45 days before the date of the Encounter or 45 days after the date of theEncounter. The data comes from all [place] treatment [facility]. Test Date/Time Test Type Test Details Facility Name Apr 08, 2024 12:00 AM Laboratory - Chemistry Order URINALYSIS URINE [facility] Apr 15, 2024 03:06 PM [facility] [place] [facility] [place] [facility] Jun 01, 2024 11:54 AM Consult Order [facility] Lab Results: +/- 30 days of the encounter This section includes the Chemistry and Hematology Lab Results on record with [place] for the patient. Radiology Reports and Pathology Reports are provided separately, in subsequent sections. Lab Results This section contains the Chemistry/Hematology Results that were resulted 30 days before or 30 daysafter the date of the Encounter. Date/Time Source Result Type Result - Unit Interpretation Reference Range Comment Apr 15, 2024 11:16 AM [facility] CPK Specimen Type: SERUM No comment entered. Ordering Provider: JOHN PAUL DENNISON Report Released Date/Time: Apr 15, 2024 10:55 AM Reporting [facility] [place] [address] [address] Performing Lab: [facility] [place] [address] [address] CPK 67 U/L 30-200 Mar 31, 2024 09:16 AM [facility] HEMOGLOBIN A1C PANEL Specimen Type: BLOOD Comment: [...] 02:27 PM Reporting Lab: [facility] [place] [address] [address] Performing Lab: [facility] [address] HEMOGLOBIN A1C 5.2 4.0-5.6 Mar 31, 2024 09:16 AM [facility] BASIC METABOLIC PANEL (fasting) Specime n Type: SERUM No comment entered. Ordering Provider: GREGG HARMON Report Released Date/Time: Apr 08, 2023 02:27 PM Reporting Lab: [address] [address] Performing Lab: [address] [address] UREA NITROGEN 20 mg/dL 7-25 GLUCOSE 100 mg/dL 65-100 SODIUM 140 mmol/L 135-145 POTASSIUM 4.2 mmol/L 3.5-5.0 CHLORIDE 109 mmol/L 100-110 CO2 23 meq/L 20-30 CREATININE, Serum 0.96 mg/dL 0.50-1.40 eGFR(CKD-EPI 2020) 86 mL/min >60 Mar 31, 2024 09:16 AM [facility] LIPID PANEL FASTING Specimen Type: SERUM No comment entered. Ordering Provider: GREGG HARMON Report Released Date/Time: Apr 08, 2023 02:27 PM Reporting Lab: [address] [address] Performing Lab: [address] [address] CHOLESTEROL 164 mg/dL TRIGLYCERIDE 102 mg/dL 0-150 LDL calculated 101 mg/dL 0-129 CHOL/HDL 3.8 HDL CHOLESTEROL 43 mg/dL 40-60 Mar 31, 2024 09:16 AM [facility] LIVER FUNCTION Specimen Type: SERUM No comment entered. Ordering Provider: GREGG HARMON Report Released Date/Time: Apr 08, 2023 02:27 PM Reporting Lab: [address] [address] Performing Lab: [address] [address] PROTEIN,TOTAL 6.0 g/dL 6.0-8.3 ALBUMIN 3.5 g/dL 3.5-5.0 ALKALINE PHOSPHATASE 70 U/L 40-150 AST 14 U/L 5-34 ALT 20 U/L BILIRUBIN, TOTAL 1.0 mg/dL 0.2-1.2 Mar 31, 2024 09:16 AM [facility] TSH Specimen Type: SERUM No comment entered. Ordering Provider: GREGG HARMON Report Released Date/Time: Apr 08, 2023 02:27 PM Reporting Lab: [address] [address] Performing Lab: [facility] [place] [facility] [address] [facility] [address] TSH 2.67 u[IU]/mL 0.35-5.00 Mar 31, 2024 09:16 AM [facility] CBC AND DIFF (AUTO) Specimen Type: BLOOD No comment entered. Ordering Provider: GREGG HARMON Report Released Date/Time: Apr 08, 2023 02:27 PM Reporting Lab: [facility] [address] [facility] [address] Performing Lab: [facility] [address] [facility] [address] WBC 4.01 10*3/uL L 4.50-11.00 RBC 4.67 [...] 08, 2023 09:12 AM VA-TOBACCO NEVER USED [facility] Tobacco Use History This section includes a history of the smoking, or tobacco-related health factors, that were collected on or before the date of the Encounter. The data comes from the [place] facility where the Encounter took place. Date/Time Smoking Status/Tobacco Use Comment F acility Aug 09, 2021 09:20 AM VA-TOBACCO NEVER USED [facility] Encounter Notes: All associated encounter notes This section contains the clinical notes associated to the Encounter. Date/Time Encounter Note(s) Provider Source Apr 19, 2024 08:41 AM ACCOUNTING OF DISC LOSURES NOTE: LOCAL TITLE: STATE PRESCRIPTION DRUG MONITORING PROGRAM STANDARD TITLE: ACCOUNTING OF DISCLOSURES NOTE DATE OF NOTE: APR 19, 2024@08:41:35 ENTRY DATE: APR 19, 2024@08:41:35 AUTHOR: YASMIN REINA EXP COSIGNER: URGENCY: STATUS: COMPLETED This PDMP query was submitted by Yasmin Reina. The clinical justification for this PDMP query is to review controlled substances prescribed outside of the [place], and any additional information that may become available, as an important component of standard clinical care, and in accordance with [facility] policy. Patient information was shared with the PDMP [place]. No prescription(s) for controlled substances outside the [facility] were found in the last 90 days. Fill Date ID Written Drug Qty Days Prescriber Rx # Pharmacy Refill Daily Dose * Pymt Type HOME CARE AIDE 04/15/2024 2 04/15/2024 Pregabalin 25 Mg Capsule 60.00 30 [place] [facility] [id number] [facility] ([id number][place] [facility]/5 [facility] [place] 12/28/2023 1 12/28/2023 Oxycodone Hcl ([place]) 5 Mg Tablet 12.00 3 To [facility] [id number] [facility] ([id number]) 0/0 30.00 MME Comm Ins [place] 05/10/2022 1 05/10/2022 Oxycodone Hcl (Ir) 5 Mg Tablet 8.00 2 [facility] [id number] [facility] (4781) 0/0 30.00 [place]ME Comm Ins [place] was identified by National PDMP Dashboard as being in need of PDMP query. Per [facility] Directive, a query of PDMP is required with prescribing of any new controlled substance. was issued a prescription for new-start pregabalin on 04/15/24. Results of PDMP query did not yield any significant findings. Time for review: 5 min /yunior/ YASMIN REINA CLINICAL PHARMACIST PRACTITIONER, PAIN Signed: 04/19/2024 08:42 YASMIN REINA [place] [facility]
--- OUTSIDE RECORDS SUMMARY | 2024-06-29 19:06 | XMS_ITS | Encounter Summary ---
Author Name [facility] [place] Address [address] [place] [address] Care Team Providers Care Lip Cutter Name Role Phone ABDIRAHMAN LAKE Primary Care [...] BASIC FAMIL Y Jun 24, 2009 [id number] [phone] ABHILASH GARAY PATIENT ANTHEM BCBS [place] F[place] PREFERRED PROVIDER ORGANIZAT ION (PPO) FEP BASIC FAM Jun 24, 2009 112 [id number] [phone] ABHILASH GARAY PATIENT ANTHEM BCBS [place] FEP PREFERRED PROVIDER ORGANIZAT ION (PPO) FEP BASIC FAM Jun 24, 2009 112 [id number] [phone] ABHILASH GARAY PATIENT ANTHEM [place] F[place] PREFERRED PROVIDER ORGANIZAT ION (PPO) FEP BASIC FAM Jun 24, 2009 112 [id number] [phone] ABHILASH GARAY PATIENT [place] F[place] PREFERRED PROVIDER ORGANIZAT ION (PPO) FEP BASIC FAM Jun 24, 2009 112 [id number] [phone] RUBI GARAYNETH PATIENT BCBS [place] FEP PREFERRED PROVIDER ORGANIZAT ION (PPO) BASIC FAMIL Y Jun 24, 2009 [id number] [phone] RUBI GARAYNETH PATIENT [place] F[place] PREFERRED PROVIDER ORGANIZAT ION (PPO) BASIC FAMIL Y Jun 24, 2009 112 [id number] [phone] RUBI GARAYNETH PATIENT [place] FEP PREFERRED PROVIDER ORGANIZAT ION (PPO) BASIC FAMIL Y Jun 24, 2009 [id number] RUBI GARAYNETH PATIENT [place] FEP DENTAL DENTAL INSURANCE BASIC Jul 12, 2009 DENTAL [id number] DEJAHDANIKARUBI ACEVESNETH PATIENT [place] FEP PREFERRED PROVIDER ORGANIZAT ION (PPO) BASIC FAMIL Y Jun 24, 2009 [id number] ABHILASH GARAY PATIENT [place] FEP ([id number]) PRESCRIPT ION FEPRX Jun 24, 2009 [id number] [phone] ABHILASH GARAY PATIENT [place] FEP BCBS PRESCRIPT ION CAREM ARK FEPRX PLAN Nov 21, 2021 [id number] ABHILASH GARAY PATIENT [employer] FEPRX PLAN PRESCRIPT ION CAREM ARK FEPRX Nov 21, 2021 [id number] [phone] ABHILASH GARAY PATIENT [place]-F EP BCBS PRESCRIPT ION FEP CAREM ARK Nov 21, 2021 [id number] ABHILASH GARAY PATIENT [place]-F EP BCBS PRESCRIPT ION FEP Jun 23, 2010 [id number] RUBI GARAYNETH PATIENT MEDICARE ([facility]) MEDICARE () PART A Feb 22, 2020 PART A [id number] ABHILASH GARAY PATIENT MEDICARE (WNR) MEDICARE (M) PART A Feb 22, 2020 PART A [id number] ABHILASH GARAY PATIENT MEDICARE (WNR) MEDICARE (M) PART A Feb 22, 2020 PART A [id number] ABHILASH GARAY PATIENT MEDICARE (WNR) MEDICARE (M) PART A Feb 22, 2020 PART A [id number] ABHILASH GARAY PATIENT MEDICARE (WNR) MEDICARE (M) PART A Feb 22, 2020 PART A [id number] ABHILASH GARAY PATIENT Selected Encounter This section includes the information on [place] at [place] for the Encounter. Date/Time Encounter Type Encounter Description Reason Pro vider Source Apr 15, 2024 03:10 PM Outpatient Encounter ADMIN PAT ACTIVTIES (MASNONCT) IHE Encounter Template Text not used by [place] Plan of Treatment: Future Appointments (+ 6 months) and Future Tests (+/- 45 days) The Plan of Treatment section includes future care activities for the [facility] [place] [facility] This section includes future appointments and future [...] 19, 2024 11:00 AM AMBULATORY - MEDICINE [facility] [place] [facility] Apr 22, 2024 09:00 AM AMBULATORY - MEDICINE [facility] [place] [place] [facility] May 03, 2024 01:00 PM AMBULATORY - MEDICINE [place] [facility] May 17, 2024 01:00 PM AMBULATORY - REHAB [facility] May 28, 2024 07:30 AM AMBULATORY - MEDICINE [place] [facility] Jun 03, 2024 01:00 PM AMBULATORY - [place]ICINE [place] [facility] Jun 08, 2024 03:00 PM AMBULATORY - REHAB [facility] Jun 11, 2024 08:00 AM AMBULATORY - MEDICINE [facility] Jun 11, 2024 02:00 PM AMBULATORY - RE[facility]AB [facility] [place] Jun 14, 2024 10:30 AM AMBULATORY - [place]ICINE [place] [facility] Jun 15, 2024 10:00 AM AMBULATORY - REHAB [facility] [place] Jun 22, 2024 11:30 AM AMBULATORY - MEDICINE [place] [facility] Jun 22, 2024 03:00 PM AMBULATORY - REHAB [facility] [place] Jun 24, 2024 01:00 PM AMBULATORY - MEDICINE [place] [facility] Jun 28, 2024 11:00 AM AMBULATORY - NONE [place] [facility] Jul 07, 2024 01:00 PM AMBULATORY - MEDICINE [place] [place] Jul 23, 2024 01:30 PM AMBULATORY - MEDICINE [place] [facility] Aug 04, 2024 10:00 AM AMBULATORY - MEDICINE [place] [facility] Aug 25, 2024 10:30 AM AMBULATORY - MEDICINE [place] [facility] Sep 21, 2024 01:30 PM AM[facility]ULATORY - MEDICINE [facility] Active, Pending, and Scheduled Orders This section includes a listing of several types of active, pending, and scheduled orders, including clinic medications orders, diagnostic test orders, procedure orders and consult orders; where the start date of the order is 45 days before the date of the Encounter or 45 days after the date of theEncounter. The data comes from all [place] treatment facilities. Test Date/Time Test Type Test Details Facility Name Apr 08, 2024 12:00 AM Laboratory - Chemistry Order URINALYSIS URINE [facility] Apr 15, 2024 03:06 PM Consult Order COMMUNITY CARE-NEUROLOGY Cons Senior Laboratory [facility] Lab Results: +/- 30 days of the encounter This section includes the Chemistry and Hematology Lab Results on record with [place] for the patient. Radiology Reports and Pathology Reports are provided separately, in subsequent sections. Lab Results This section contains the Chemistry/Hematology Results that were resulted 30 days before or 30 daysafter the date of the Encounter. Date/Time Source Result Type Result - Unit Interpretation Reference Range Comment Apr 15, 2024 11:16 AM [place] [facility] CPK Specimen Type: SERUM No comment entered. Ordering Provider: JOHN PAUL DENNISON Report Released Date/Time: Apr 15, 2024 10:55 AM Reporting Lab: [facility] [address] [address] Performing Lab: [facility] [address] [address] CPK 67 U/L 30-200 Mar 31, 2024 09:16 AM [place] HEMOGLOBIN A1C PANEL Specimen Type: BLOOD Comment: [...] 2023 02:27 PM Reporting Lab: [facility] [address] [address] Performing Lab: [facility] [address] HEMOGLOBIN A1C 5.2 4.0-5.6 Mar 31, 2024 09:16 AM [place] TSH Specimen Type: SERUM No comment entered. Ordering Provider: GREGG HARMON Report Released Date/Time: Apr 08, 2023 02:27 PM Reporting Lab: [facility] [address] Performing Lab: [facility] [address] [address] TSH 2.67 u[IU]/mL 0.35-5.00 Mar 31, 2024 09:16 AM [place] LIPID PANEL FASTING Specimen Type: SERUM No comment entered. Ordering Provider: GREGG HARMON Report Released Date/Time: Apr 08, 2023 02:27 PM Reporting Lab: [facility] [address] [address] Performing Lab: [facility] [address] [address] CHOLESTEROL 164 mg/dL TRIGLYCERIDE 102 mg/dL 0-150 LDL calculated 101 mg/dL 0-129 CHOL/HDL 3.8 HDL CHOLESTEROL 43 mg/dL 40-60 Mar 31, 2024 09:16 AM [place] BASIC METABOLIC PANEL (fasting) Specime n Type: SERUM No comment entered. Ordering Provider: GREGG HARMON Report Released Date/Time: Apr 08, 2023 02:27 PM Reporting Lab: [address] [address] Performing Lab: [address] [address] UREA NITROGEN 20 mg/dL 7-25 GLUCOSE 100 mg/dL 65-100 SODIUM 140 mmol/L 135-145 POTASSIUM 4.2 mmol/L 3.5-5.0 CHLORIDE 109 mmol/L 100-110 CO2 23 meq/L 20-30 CREATININE, Serum 0.96 mg/dL 0.50-1.40 eGFR(CKD-EPI 2020) 86 mL/min >60 Mar 31, 2024 09:16 AM [place] LIVER FUNCTION Specimen Type: SERUM No comment entered. Ordering Provider: GREGG HARMON Report Released Date/Time: Apr 08, 2023 02:27 PM Reporting Lab: [address] [address] Performing Lab: [address] [address] PROTEIN,TOTAL 6.0 g/dL 6.0-8.3 ALBUMIN 3.5 g/dL 3.5-5.0 ALKALINE PHOSPHATASE 70 U/L 40-150 AST 14 U/L 5-34 ALT 20 U/L BILIRUBIN, TOTAL 1.0 mg/dL 0.2-1.2 Mar 31, 2024 09:16 AM [place] CBC AND DIFF (AUTO) Specimen Type: BLOOD No comment entered. Ordering Provider: GREGG HARMON Report Released Date/Time: Apr 08, 2023 02:27 PM Reporting Lab: [address] [address] Performing Lab: [address] [address] WBC 4.01 10*3/uL L 4.50-11.00 RBC 4.67 [...] 09, 2021 09:20 AM VA-TOBACCO NEVER USED [facility] Encounter Notes: All associated encounter notes This section contains the clinical notes associated to the Encounter. Date/Time Encounter Note(s) Provider Source Apr 21, 2024 02:43 PM ADDENDUM: LOCAL TITLE: Addendum STANDARD TITLE: ADDENDUM DATE OF NOTE: APR 21, 2024@14:43:50 ENTRY DATE: APR 21, 2024@14:43:51 AUTHOR: RADHIKA GOMEZ COSIGNER: URGENCY: STATUS: COMPLETED Forwarding inquiry to pcp for review. /yunior/ BREANNA BAKER RN-BC REGISTERED NURSE Signed: 04/21/2024 14:44 Receipt Acknowledged By: 04/22/2024 13:29 /es/ VESTA BLISS MD PRIMARY CARE PHYSICIAN --- Original Document --- 04/15/24 CCC: SCHEDULING ADMINISTRATION: Patient Demographics Patient Name: ABHILASH GARAY Patient Primary Phone: [phone] Patient Primary Address: [address] [place] [address] Patient : 1955 Patient Age: 69 Caller/Recipient Relation to Patient: Self Administrative Administrative Note Reason: Returned Call [facility] Medic[facility] Refill/Renewal Request: Vet calling to find out if he will get the same symptoms with PREGABALIN as he did with Gabapentin. IMPORTANT: This note was created by [facility] staff. Please do not alert the staff member by adding them as a signer for future communications. Alerts are not monitored by this user. /yunior/ SYDNEE STEWARTN 1 [facility] AMSA Signed: 04/15/2024 15:10 Receipt Acknowledged By: 04/21/2024 14:43 /yunior/ BREANNA BAKER RN-RONI REGISTERED NURSE * AWAITING SIGNATURE * EUGENIE SALVADOR KRISTIN [facility] Apr 15, 2024 03:10 PM ADMINISTRATIVE NOT E: LOCAL TITLE: CCC: SCHEDULING ADMINISTRATION STANDARD TITLE: ADMINISTRATIVE NOTE DATE OF NOTE: APR 15, 2024@15:10:33 ENTRY DATE: APR 15, 2024@15:10:33 AUTHOR: SYDNEE GOLDSTEIN EXP COSIGNER: URGENCY: STATUS: COMPLETED CCC: SCHEDULING ADMINISTRATION Has ADDENDA Patient Demographics Patient Name: ABHILASH GARAY Patient Primary Phone: [phone] Patient Primary Address: [address] [place] [id number] Patient : 1955 Patient Age: 69 Caller/Recipient Relation to Patient: Self Administrative Administrative Note Reason: Returned Call [place] Medications Refill/Renewal Request: Vet calling to find out if he will get the same symptoms with PREGABALIN as he did with Gabapentin. IMPORTANT: This note was created by [facility] staff. Please do not alert the staff member by adding them as a signer for future communications. Alerts are not monitored by this user. /yunior/ SYDNEE GOLDSTEIN VISN 1 CCC AMSA Signed: 04/15/2024 15:10 Receipt Acknowledged By: 04/21/2024 14:43 /es/ BREANNA BAKER RN-BC REGISTERED NURSE 04/22/2024 13:43 /es/ EUGENIE SALVADOR LPN Licensed Practical Nurse 04/21/2024 ADDENDUM STATUS: COMPLETED Forwarding inquiry to pcp for review. /yunior/ BREANNA BAKER RN-BC REGISTERED NURSE Signed: 04/21/2024 14:44 Receipt Acknowledged By: 04/22/2024 13:29 /yunior/ VESTA BLISS MD PRIMARY CARE PHYSICIAN SYDNEE GOLDSTEIN [place] [facility]
--- OUTSIDE RECORDS SUMMARY | 2024-06-29 19:06 | XMS_ITS | Encounter Summary ---
Author Name [place] Address [address] [place] [address] Care Team Providers Care Box Packer Name Role Phone ABDIRAHMAN [place] Primary [...] BASIC FAMIL Y Jun 24, 2009 112 [id number] [phone] ABHILASH GARAY PATIENT ANTHEM BCBS IN FEP PREFERRED PROVIDER ORGANIZAT ION (PPO) FEP BASIC FAM Jun 24, 2009 112 [id number] [phone] ABHILASH GARAY PATIENT ANTHEM [place]BS [place] F[place] PREFERRED PROVIDER ORGANIZAT ION (PPO) FEP BASIC FAM Jun 24, 2009 112 [id number] [phone] ABHILASH GARAY PATIENT ANTHEM [place] PREFERRED PROVIDER ORGANIZAT ION (PPO) FEP BASIC FAM Jun 24, 2009 112 [id number] [phone] ABHILASH GARAY PATIENT [place] PREFERRED PROVIDER ORGANIZAT ION (PPO) FEP BASIC FAM Jun 24, 2009 [id number] [phone] ABHILASH GARAY PATIENT [place]BS [place] F[place] PREFERRED PROVIDER ORGANIZAT ION (PPO) BASIC FAMIL Y Jun 24, 2009 [id number] ABHILASH GARAY PATIENT [place] FEP PREFERRED PROVIDER ORGANIZAT ION (PPO) BASIC FAMIL Y Jun 24, 2009 [id number] ABHILASH GARAY PATIENT [place] FEP PREFERRED PROVIDER ORGANIZAT ION (PPO) BASIC FAMIL Y Jun 24, 2009 [id number] ABHILASH GARAY PATIENT [place] DENTAL DENTAL INSURANCE BASIC Jul 12, 2009 DENTAL [id number] [phone] ABHILASH GARAY PATIENT [place] FEP PREFERRED PROVIDER ORGANIZAT ION (PPO) BASIC FAMIL Y Jun 24, 2009 [id number] ABHILASH GARAY PATIENT [place] FEP ([id number]) PRESCRIPT ION FEPRX Jun 24, 2009 [id number] [phone] ABHILASH GARAY PATIENT [place] FEP BCBS PRESCRIPT ION CAREM ARK FEPRX PLAN Nov 21, 2021 [id number] ABHILASH GARAY PATIENT [place] FEPRX PLAN PRESCRIPT ION CAREM ARK FEPRX Nov 21, 2021 [id number] ABHILASH GARAY PATIENT [place]-F EP BCBS PRESCRIPT ION FEP CAREM ARK Nov 21, 2021 [id number] ABHILASH GARAY PATIENT [place]-F EP BCBS PRESCRIPT ION FEP Jun 23, 2010 [id number] RUBI GARAYNETH PATIENT MEDICARE (WN) MEDICARE () PART A Feb 22, 2020 PART A [id number] ABHILASH GARAY PATIENT MEDICARE (WN) MEDICARE () PART A Feb 22, 2020 PART A [id number] ABHILASH GARAY PATIENT MEDICARE (WNR) MEDICARE (M) PART A Feb 22, 2020 PART A [id number] ABHILASH GARAY PATIENT MEDICARE (WNR) MEDICARE (M) PART A Feb 22, 2020 PART A [id number] ABHILASH GARAY PATIENT MEDICARE (WNR) MEDICARE (M) PART A Feb 22, 2020 PART A [id number] ABHILASH GARAY PATIENT Selected Encounter This section includes the information on record at [place] for the Encounter. Date/Time Encounter Type Encounter Description Reason Pro vider Source Apr 14, 2024 08:55 AM Outpatient Encounter PAIN CLINIC IHE Encounter Template [...] 15, 2024 10:00 AM AM[place]ULATORY [place]ICINE [place] [facility] Apr 19, 2024 11:00 AM AMBULATORY - MEDICINE [facility] [place] [facility] Apr 22, 2024 09:00 AM AM[place]ORY [place]ICINE [place] [facility] May 03, 2024 01:00 PM AM[place]ORY [place]ICINE [place] [facility] May 17, 2024 01:00 PM AMBULATORY - REHAB [facility] May 28, 2024 07:30 AM AM[place]ORY [place]ICINE [place] [facility] Jun 03, 2024 01:00 PM AMBULATORY [place]ICINE [place] [facility] Jun 08, 2024 03:00 PM AMBULATORY - REHAB [facility] Jun 11, 2024 08:00 AM AMBULATORY - MEDICINE [facility] Jun 11, 2024 02:00 PM AMBULATORY - REHAB MEDICIN [facility] [place] Jun 14, 2024 10:30 AM AMBULATORY [place]ICINE [place] [facility] Jun 15, 2024 10:00 AM AMBULATORY - REHAB MEDICIN E [place] Jun 22, 2024 11:30 AM AMBULATORY - MEDICINE [place] [facility] Jun 22, 2024 03:00 PM AMBULATORY - REHAB MEDICIN E [place] Jun 24, 2024 01:00 PM AMBULATORY - MEDICINE [place] [facility] Jun 28, 2024 11:00 AM AMBULATORY - NONE [place] [facility] [place] [facility] Jul 07, 2024 01:00 PM AMBULATORY - [facility]ICINE [facility] Jul 23, 2024 01:30 PM AMBULATORY - [place]ICINE [place] [facility] Aug 04, 2024 10:00 AM AMBULATORY [place]ICINE [place] [facility] Aug 25, 2024 10:30 AM AMBULATORY - MEDICINE [place] C [place] [facility] Active, Pending, and Scheduled Orders This section includes a listing of several types of active, pending, and scheduled orders, including clinic medications orders, diagnostic test orders, procedure orders and consult orders; where the start date of the order is 45 days before the date of the Encounter or 45 days after the date of theEncounter. The data comes from all [place] treatment facilities. Test Date/Time Test Type Test Details Facility Name Apr 08, 2024 12:00 AM Laboratory - Chemistry Order URINALYSIS URINE [facility] [place] Apr 15, 2024 03:06 PM Consult Order COMMUNITY CARE-NEUROLOGY Cons Interactive Designer's Choice [facility] Lab Results: +/- 30 days of the encounter This section includes the Chemistry and Hematology Lab Results on record with [place] for the patient. Radiology Reports and Pathology Reports are provided separately, in subsequent sections. Lab Results This section contains the Chemistry/Hematology Results that were resulted 30 days before or 30 daysafter the date of the Encounter. Date/Time Source Result Type Result - Unit Interpretation Reference Range Comment Apr 15, 2024 11:16 AM [facility] CPK Specimen Type: SERUM No comment entered. Ordering Provider: CUTLER,JOHN PAUL S Report Released Date/Time: Apr 15, 2024 10:55 AM Reporting Lab: [facility] [address] [facility] [address] Performing Lab: [facility] [address] CPK 67 U/L 30-200 Mar 31, 2024 09:16 AM [place] HEMOGLOBIN A1C PANEL Specimen Type: BLOOD Comment: [...] Apr 08, 2023 02:27 PM Reporting Lab: [address] [address] Performing Lab: [facility] [address] [address] HEMOGLOBIN A1C 5.2 4.0-5.6 Mar 31, 2024 09:16 AM [place] TSH Specimen Type: SERUM No comment entered. Ordering Provider: GREGG HARMON Report Released Date/Time: Apr 08, 2023 02:27 PM Reporting Lab: [facility] [address] [facility] [address] Performing Lab: [facility] [address] [address] TSH 2.67 u[IU]/mL 0.35-5.00 Mar 31, 2024 09:16 AM [place] LIPID PANEL FASTING Specimen Type: SERUM No comment entered. Ordering Provider: GREGG HARMON Report Released Date/Time: Apr 08, 2023 02:27 PM Reporting Lab: [facility] [address] [address] Performing Lab: [facility] [address] [address] CHOLESTEROL 164 mg/dL TRIGLYCERIDE 102 mg/dL 0-150 LDL calculated 101 mg/dL 0-129 CHOL/HDL 3.8 HDL CHOLESTEROL 43 mg/dL 40-60 Mar 31, 2024 09:16 AM [place] BASIC METABOLIC PANEL (fasting) Specime n Type: SERUM No comment entered. Ordering Provider: GREGG HARMON Report Released Date/Time: Apr 08, 2023 02:27 PM Reporting Lab: [facility] [address] [facility] [address] Performing Lab: [address] [address] UREA NITROGEN 20 mg/dL 7-25 GLUCOSE 100 mg/dL 65-100 SODIUM 140 mmol/L 135-145 POTASSIUM 4.2 mmol/L 3.5-5.0 CHLORIDE 109 mmol/L 100-110 CO2 23 meq/L 20-30 CREATININE, Serum 0.96 mg/dL 0.50-1.40 eGFR(CKD-EPI 2020) 86 mL/min >60 Mar 31, 2024 09:16 AM [place] LIVER FUNCTION Specimen Type: SERUM No comment entered. Ordering Provider: GREGG HARMON Report Released Date/Time: Apr 08, 2023 02:27 PM Reporting Lab: [address] [address] Performing Lab: [address] [address] PROTEIN,TOTAL 6.0 g/dL 6.0-8.3 ALBUMIN 3.5 g/dL 3.5-5.0 ALKALINE PHOSPHATASE 70 U/L 40-150 AST 14 U/L 5-34 ALT 20 U/L BILIRUBIN, TOTAL 1.0 mg/dL 0.2-1.2 Mar 31, 2024 09:16 AM [place] CBC AND DIFF (AUTO) Specimen Type: BLOOD No comment entered. Ordering Provider: GREGG HARMON Report Released Date/Time: Apr 08, 2023 02:27 PM Reporting Lab: [address] [address] Performing Lab: [address] [address] WBC 4.01 10*3/uL L 4.50-11.00 RBC 4.67 [...] 08, 2023 09:12 AM VA-TOBACCO NEVER USED [facility] Tobacco Use History This section includes a history of the smoking, or tobacco-related health factors, that were collected on or before the date of the Encounter. The data comes from the [place] facility where the Encounter took place. Date/Time Smoking Status/Tobacco Use Comment F acility Aug 09, 2021 09:20 AM VA-TOBACCO NEVER USED [facility] Encounter Notes: All associated encounter notes This section contains the clinical notes associated to the Encounter. Date/Time Encounter Note(s) Provider Source Apr 14, 2024 08:55 AM TELEPHONE ENCOUNTE R NOTE: LOCAL TITLE: TELEPHONE NOTE/SPECIALTY CLINIC STANDARD TITLE: TELEPHONE ENCOUNTER NOTE DATE OF NOTE: APR 14, 2024@08:55 ENTRY DATE: APR 14, 2024@08:55:33 AUTHOR: CATHIE CULLEN COSIGNER: URGENCY: STATUS: COMPLETED Call attempt was made to remind vet that they have a FTF appt with the Pain clinic on 04/15/2024 at 1000. No answer, lvm. Location was confirmed. /yunior/ CATHIE CULLEN [employer] Signed: 04/14/2024 08:56 CATHIE CULLEN CNTRL W[facility]N [facility]
--- OUTSIDE RECORDS SUMMARY | 2024-06-29 19:06 | XMS_ITS | Encounter Summary ---
Author Name [facility] [place] [facility] [place] [facility] [place] Address [address] [place] [address] Care Team Providers Care Field Spec Name Role Phone [facility] Primary Care [...] BASIC FAMIL Y Jun 24, 2009 [id number] [phone] ABHILASH GARAY PATIENT ANTHEM BCBS [place] FEP PREFERRED PROVIDER ORGANIZAT ION (PPO) FEP BASIC FAM Jun 24, 2009 112 [id number] [phone] ABHILASH GARAY PATIENT ANTHEM [place]BS [place] F[place] PREFERRED PROVIDER ORGANIZAT ION (PPO) FEP BASIC FAM Jun 24, 2009 112 [id number] [phone] ABHILASH GARAY PATIENT ANTHE[place] F[place] PREFERRED PROVIDER ORGANIZAT ION (PPO) FEP BASIC FAM Jun 24, 2009 112 [id number] [phone] ABHILASH GARAY PATIENT [place] F[place] PREFERRED PROVIDER ORGANIZAT ION (PPO) FEP BASIC FAM Jun 24, 2009 112 [id number] [phone] RUBI GARAYNETH PATIENT [place]BS [place] FEP PREFERRED PROVIDER ORGANIZAT ION (PPO) BASIC FAMIL Y Jun 24, 2009 112 [id number] RUBI GARAYNETH PATIENT [place] PREFERRED PROVIDER ORGANIZAT ION (PPO) BASIC FAMIL Y Jun 24, 2009 112 [id number] RUBI GARAYNETH PATIENT [place] PREFERRED PROVIDER ORGANIZAT ION (PPO) BASIC FAMIL Y Jun 24, 2009 112 [id number] RUBI GARAYNETH PATIENT [place] FEP DENTAL DENTAL INSURANCE BASIC Jul 12, 2009 DENTAL [id number] DEJAHDANIKARUBI ACEVESNETH PATIENT [place] F[place] PREFERRED PROVIDER ORGANIZAT ION (PPO) BASIC FAMIL Y Jun 24, 2009 112 [id number] [phone] ABHILASH GARAY PATIENT [place] FEP ([id number]) PRESCRIPT ION FEPRX Jun 24, 2009 [id number] [phone] ABHILASH GARAY PATIENT [place] FEP BCBS PRESCRIPT ION [place] FEPRX PLAN Nov 21, 2021 [id number] ABHILASH GARAY PATIENT [place] FEPRX PLAN PRESCRIPT ION [place] FEPRX Nov 21, 2021 [id number] [phone] ABHILASH GARAY PATIENT [place]-F [place] BCBS PRESCRIPT ION FEP CAR[place] ARK Nov 21, 2021 [id number] ABHILASH GARAY PATIENT [place] EP BCBS PRESCRIPT ION FEP Jun 23, 2010 [id number] RUBI GARAYNETH PATIENT MEDICARE ([facility]) MEDICARE () PART A Feb 22, 2020 PART A [id number] [phone] ABHILASH GARAY PATIENT MEDICARE (WNR) MEDICARE (M) PART A Feb 22, 2020 PART A [id number] ABHILASH GARAY PATIENT MEDICARE (WNR) MEDICARE (M) PART A Feb 22, 2020 PART A [id number] [phone] ABHILASH GARAY PATIENT MEDICARE (WNR) MEDICARE (M) PART A Feb 22, 2020 PART A [id number] ABHILASH GARAY PATIENT MEDICARE (WNR) MEDICARE (M) PART A Feb 22, 2020 PART A [id number] ABHILASH GARAY PATIENT Selected Encounter This section includes the information on record at [place] for the Encounter. Date/Time Encounter Type Encounter Description Reason Pro vider Source Apr 16, 2024 12:27 PM Outpatient Encounter ADMIN PAT ACTIVTIES (MASNONCT) IHE Encounter Template Text not used by [place] Plan of Treatment: Future Appointments (+ 6 months) and Future Tests (+/- 45 days) The Plan of Treatment section includes [facility] care [facility] the [facility] [place] [facility] This section includes future appointments and [...] 19, 2024 11:00 AM AMBULATORY - MEDICINE [facility] [facility] Apr 22, 2024 09:00 AM AMBULATORY - MEDICINE [facility] [place] [facility] May 03, 2024 01:00 PM AMBULATORY - MEDICINE [place] [facility] [facility] May 17, 2024 01:00 PM AMBULATORY - REHAB [facility] May 28, 2024 07:30 AM AMBULATORY - MEDICINE [place] [facility] Jun 03, 2024 01:00 PM AMBULATORY - [place]ICINE [place] [facility] Jun 08, 2024 03:00 PM AMBULATORY - REHAB [facility] Jun 11, 2024 08:00 AM AMBULATORY - MEDICINE [facility] Jun 11, 2024 02:00 PM AMBULATORY - [facility] [place] Jun 14, 2024 10:30 AM AMBULATORY [place]ICINE [place] [facility] Jun 15, 2024 10:00 AM AMBULATORY - [facility]AB [facility] [place] Jun 22, 2024 11:30 AM AMBULATORY - MEDICINE [place] [facility] Jun 22, 2024 03:00 PM AMBULATORY - [facility]AB [facility] [place] Jun 24, 2024 01:00 PM AMBULATORY - MEDICINE [place] [facility] [facility] Jun 28, 2024 11:00 AM AMBULATORY - NONE [place] [facility] [place] [facility] Jul 07, 2024 01:00 PM AM[place]ORY [place]IC[place] Jul 23, 2024 01:30 PM AMBULATORY - MEDICINE [place] [facility] Aug 04, 2024 10:00 AM AMBULATORY - MEDICINE [place] [facility] Aug 25, 2024 10:30 AM AMBULATORY - MEDICINE [place] [facility] Sep 21, 2024 01:30 PM [facility]ORY - MEDICINE [facility] Active, Pending, and Scheduled Orders This [...] AM Laboratory - Chemistry Order URINALYSIS URINE [facility] Apr 15, 2024 03:06 PM Consult Order COMMUNITY CARE-NEUROLOGY Cons Chief Safety Officer's Choice [facility] Lab Results: +/- 30 days of [...] Range Comment Apr 15, 2024 11:16 AM [place] [facility] CPK Specimen Type: SERUM No comment entered. Ordering Provider: JOHN PAUL DENNISON Report Released Date/Time: Apr 15, 2024 10:55 AM Reporting Lab: [facility] [address] [address] Performing Lab: [facility] [address] [address] CPK 67 U/L 30-200 Mar 31, 2024 09:16 AM [place] HEMOGLOBIN A1C PANEL Specimen Type: BLOOD Comment: [...] 08, 2023 02:27 PM Reporting [facility]: [facility] [address] [address] Performing Lab: [facility] [address] HEMOGLOBIN A1C 5.2 4.0-5.6 Mar 31, 2024 09:16 AM [place] TSH Specimen Type: SERUM No comment entered. Ordering Provider: GREGG HARMON Report Released Date/Time: Apr 08, 2023 02:27 PM Reporting Lab: [facility] [address] Performing Lab: [facility] [address] [address] TSH 2.67 u[IU]/mL 0.35-5.00 Mar 31, 2024 09:16 AM [place] LIPID PANEL FASTING Specimen Type: SERUM No comment entered. Ordering Provider: GREGG HARMON Report Released Date/Time: Apr 08, 2023 02:27 PM Reporting Lab: [facility] [address] [address] Performing Lab: [facility] [address] [address] CHOLESTEROL 164 mg/dL TRIGLYCERIDE 102 mg/dL 0-150 LDL calculated 101 mg/dL 0-129 CHOL/HDL 3.8 HDL CHOLESTEROL 43 mg/dL 40-60 Mar 31, 2024 09:16 AM [place] BASIC METABOLIC PANEL (fasting) Specime n Type: SERUM No comment entered. Ordering Provider: GREGG HARMON Report Released Date/Time: Apr 08, 2023 02:27 PM Reporting Lab: [address] [address] Performing Lab: [address] [address] UREA NITROGEN 20 mg/dL 7-25 GLUCOSE 100 mg/dL 65-100 SODIUM 140 mmol/L 135-145 POTASSIUM 4.2 mmol/L 3.5-5.0 CHLORIDE 109 mmol/L 100-110 CO2 23 meq/L 20-30 CREATININE, Serum 0.96 mg/dL 0.50-1.40 eGFR(CKD-EPI 2020) 86 mL/min >60 Mar 31, 2024 09:16 AM [place] LIVER FUNCTION Specimen Type: SERUM No comment entered. Ordering Provider: GREGG HARMON Report Released Date/Time: Apr 08, 2023 02:27 PM Reporting Lab: [address] [address] Performing Lab: [address] [address] PROTEIN,TOTAL 6.0 g/dL 6.0-8.3 ALBUMIN 3.5 g/dL 3.5-5.0 ALKALINE PHOSPHATASE 70 U/L 40-150 AST 14 U/L 5-34 ALT 20 U/L BILIRUBIN, TOTAL 1.0 mg/dL 0.2-1.2 Mar 31, 2024 09:16 AM [place] CBC AND DIFF (AUTO) Specimen Type: BLOOD No comment entered. Ordering Provider: GREGG HARMON Report Released Date/Time: Apr 08, 2023 02:27 PM Reporting Lab: [address] [address] Performing Lab: [address] [address] WBC 4.01 10*3/uL L 4.50-11.00 RBC 4.67 [...] 08, 2023 09:12 AM VA-TOBACCO NEVER USED [facility] Tobacco Use History This section includes a history of the smoking, or tobacco-related health factors, that were collected on or before the date of the Encounter. The data comes from the [place] facility where the Encounter took place. Date/Time Smoking Status/Tobacco Use Comment F acility Aug 09, 2021 09:20 AM VA-TOBACCO NEVER USED [facility] Encounter Notes: All associated encounter notes This section contains the clinical notes associated to the Encounter. Date/Time Encounter Note(s) Provider Source Apr 16, 2024 12:27 PM ADMINISTRATIVE NOTE: LOCAL TITLE: CCC: SCHEDULING ADMINISTRATION STANDARD TITLE: ADMINISTRATIVE NOTE DATE OF NOTE: APR 16, 2024@12:27:39 ENTRY DATE: APR 16, 2024@12:27:40 AUTHOR: LEIDY VILLALPANDO COSIGNER: URGENCY: STATUS: COMPLETED CCC: SCHEDULING ADMINISTRATION Has ADDENDA Patient Demographics Patient Name: ABHILASH GARAY Patient Primary Phone: [phone] Patient Primary Address: [address] [place] [address] Patient : 1955 Patient Age: 69 Caller/Recipient Relation to Patient: Self Administrative Administrative Note Reason: Other Administrative Note Comments: called regarding PREGABALIN 25MG ORAL CAP , states he has not started medication but wants to know if it comes with side affects. please call back IMPORTANT: This note was created by [facility] Clinical Contact Center staff. Please do not alert the staff member by adding them as a signer for future communications. Alerts are not monitored by this user. /oriana VILLALPANDO Signed: 04/16/2024 12:27 Receipt Acknowledged By: 04/21/2024 14:44 /BREANNA Gillespie RN-BC REGISTERED NURSE 04/22/2024 13:47 /yunior/ EUGENIE SALVADOR LPN Licensed Practical Nurse 04/21/2024 ADDENDUM STATUS: COMPLETED previous inquiry has been forwarded to PCP for review. /BREANNA Gillespie RN-BC REGISTERED NURSE Signed: 04/21/2024 14:44 LE[facility]ALPANDO [facility]
--- OUTSIDE RECORDS SUMMARY | 2024-06-29 19:06 | XMS_ITS | Encounter Summary ---
Author Name [facility] Address [address] [place] [address] Care Team Providers Care Hand Wrapper Operator Name Role Phone ABDIRAHMAN LAKE Primary [...] BASIC FAMIL Y Jun 24, 2009 [id number] [phone] ABHILSAH GARAY PATIENT ANTHEM BCBS [place] FEP PREFERRED PROVIDER ORGANIZAT ION (PPO) FEP BASIC FAM Jun 24, 2009 112 [id number] [phone] ABHILASH GARAY PATIENT ANTHEM [place]BS [place] F[place] PREFERRED PROVIDER ORGANIZAT ION (PPO) FEP BASIC FAM Jun 24, 2009 112 [id number] [phone] ABHILASH GARAY PATIENT ANTHEM [place] F[place] PREFERRED PROVIDER ORGANIZAT ION (PPO) FEP BASIC FAM Jun 24, 2009 112 [id number] [phone] ABHILASH GARAY PATIENT [place] PREFERRED PROVIDER ORGANIZAT ION (PPO) FEP BASIC FAM Jun 24, 2009 112 [id number] [phone] RUBI GARAYNETH PATIENT [place]BS [place] FEP PREFERRED PROVIDER ORGANIZAT ION (PPO) BASIC FAMIL Y Jun 24, 2009 [id number] RUBI GARAYNETH PATIENT [place] PREFERRED PROVIDER ORGANIZAT ION (PPO) BASIC FAMIL Y Jun 24, 2009 112 [id number] RUBI GARAYNETH PATIENT [place] F[place] PREFERRED PROVIDER ORGANIZAT ION (PPO) BASIC FAMIL Y Jun 24, 2009 112 [id number] [phone] RUBI GARAYNETH PATIENT [place] FEP DENTAL DENTAL INSURANCE BASIC Jul 12, 2009 DENTAL [id number] DEJAHDANIKARUBI ACEVESNETH PATIENT [place] F[place] PREFERRED PROVIDER ORGANIZAT ION (PPO) BASIC FAMIL Y Jun 24, 2009 112 [id number] ABHILASH GARAY PATIENT [place] FEP ([id number]) PRESCRIPT ION FEPRX Jun 24, 2009 [id number] [phone] ABHILASH GARAY PATIENT [place] FEP BCBS PRESCRIPT ION [place] FEPRX PLAN Nov 21, 2021 [id number] ABHILASH GARAY PATIENT [place] FEPRX PLAN PRESCRIPT ION CAR[place] AR[place] FEPRX Nov 21, 2021 [id number] [phone] ABHILASH GARAY PATIENT [place]-F [place] BCBS PRESCRIPT ION FEP CAREM ARK Nov 21, 2021 [id number] ABHILASH GARAY PATIENT [place]-F EP BCBS PRESCRIPT ION FEP Jun 23, 2010 [id number] RUBI GARAYNETH PATIENT MEDICARE ([facility]) MEDICARE () PART A Feb 22, 2020 PART A [id number] ABHILASH GARAY PATIENT MEDICARE (WNR) MEDICARE (M) PART A Feb 22, 2020 PART A [id number] ABHILASH GARAY PATIENT MEDICARE (WNR) MEDICARE (M) PART A Feb 22, 2020 PART A [id number] [phone] ABHILASH GARAY PATIENT MEDICARE (WNR) MEDICARE (M) PART A Feb 22, 2020 PART A [id number] ABHILASH GARAY PATIENT MEDICARE (WNR) MEDICARE (M) PART A Feb 22, 2020 PART A [id number] ABHILASH GARAY PATIENT Selected Encounter This section includes the information on record at [place] for the Encounter. Date/Time Encounter Type Encounter Description Reason Pro vider Source Apr 16, 2024 02:23 PM Outpatient Encounter ADMIN PAT ACTIVTIES (MASNONCT) IHE Encounter Template Text not used by [place] Plan of Treatment: Future Appointments (+ 6 months) and Future Tests (+/- 45 days) The Plan of Treatment section includes future care [facility] the [facility] This section includes future appointments and [...] 19, 2024 11:00 AM AMBULATORY - MEDICINE [facility] [place] [facility] Apr 22, 2024 09:00 AM AMBULATORY - MEDICINE [facility] [place] [place] [facility] May 03, 2024 01:00 PM AMBULATORY - MEDICINE [place] [facility] [place] [facility] May 17, 2024 01:00 PM AMBULATORY - REHAB [facility] May 28, 2024 07:30 AM AMBULATORY - MEDICINE [place] [facility] [place] [facility] Jun 03, 2024 01:00 PM AMBULATORY - MEDICINE [place] [facility] [place] [facility] Jun 08, 2024 03:00 PM AMBULATORY - REHAB [facility] Jun 11, 2024 08:00 AM AMBULATORY - MEDICINE [facility] Jun 11, 2024 02:00 PM AMBULATORY - RE[facility]AB [facility]IC[facility] [place] Jun 14, 2024 10:30 AM AMBULATORY - MEDICINE [place] [facility] Jun 15, 2024 10:00 AM AMBULATORY - REHAB [facility]IN [facility] [place] Jun 22, 2024 11:30 AM AMBULATORY - MEDICINE [place] [facility] Jun 22, 2024 03:00 PM AMBULATORY - REHAB [facility]IN [facility] [place] Jun 24, 2024 01:00 PM AMBULATORY - MEDICINE [place] [facility] [place] [facility] Jun 28, 2024 11:00 AM AMBULATORY - NONE [place] [facility] Jul 07, 2024 01:00 PM AMBULATORY - MEDICINE [place] Jul 23, 2024 01:30 PM AMBULATORY - MEDICINE [place] [facility] Aug 04, 2024 10:00 AM AMBULATORY - MEDICINE [place] [facility] [place] [facility] Aug 25, 2024 10:30 AM AMBULATORY - MEDICINE [place] [facility] Sep 21, 2024 01:30 PM AMBULATORY - MEDICINE [facility] Active, Pending, and Scheduled Orders This section includes a listing of several types of active, pending, and scheduled orders, including clinic medications orders, diagnostic test orders, procedure orders and consult orders; where the start date of the order is 45 days before the date of the Encounter or 45 days after the date of theEncounter. The data comes from all [place] treatment facilities. Test Date/Time Test Type Test Details Facility Name Apr 08, 2024 12:00 AM Laboratory - Chemistry Order URINALYSIS URINE [facility] Apr 15, 2024 03:06 PM Consult Order COMMUNITY CARE-NEUROLOGY Cons Technical Manager's Choice [facility] Lab Results: +/- 30 days of the encounter This section includes the Chemistry and Hematology Lab Results on record with [place] for the patient. Radiology Reports and Pathology Reports are provided separately, in subsequent sections. Lab Results This section contains the Chemistry/Hematology Results that were resulted 30 days before or 30 daysafter the date of the Encounter. Date/Time Source Result Type Result - Unit Interpretation Reference Range Comment Apr 15, 2024 11:16 AM [place] [facility] CPK Specimen Type: SERUM No comment entered. Ordering Provider: JOHN PAUL DENNISON Report Released Date/Time: Apr 15, 2024 10:55 AM Reporting Lab: [facility] [address] [address] Performing Lab: [facility] [address] [address] CPK 67 U/L 30-200 Mar 31, 2024 09:16 AM [place] HEMOGLOBIN A1C PANEL Specimen Type: BLOOD [...] Apr 08, 2023 02:27 PM Reporting Lab: [facility] [address] [address] Performing Lab: [facility] [address] HEMOGLOBIN A1C 5.2 4.0-5.6 Mar 31, 2024 09:16 AM [place] TSH Specimen Type: SERUM No comment entered. Ordering Provider: GREGG HARMON Report Released Date/Time: Apr 08, 2023 02:27 PM Reporting Lab: [facility] [address] Performing Lab: [facility] [address] [address] TSH 2.67 u[IU]/mL 0.35-5.00 Mar 31, 2024 09:16 AM [place] LIPID PANEL FASTING Specimen Type: SERUM No comment entered. Ordering Provider: GREGG HARMON Report Released Date/Time: Apr 08, 2023 02:27 PM Reporting Lab: [facility] [address] [address] Performing Lab: [facility] [address] [address] CHOLESTEROL 164 mg/dL TRIGLYCERIDE 102 mg/dL 0-150 LDL calculated 101 mg/dL 0-129 CHOL/HDL 3.8 HDL CHOLESTEROL 43 mg/dL 40-60 Mar 31, 2024 09:16 AM [place] BASIC METABOLIC PANEL (fasting) Specime n Type: SERUM No comment entered. Ordering Provider: GREGG HARMON Report Released Date/Time: Apr 08, 2023 02:27 PM Reporting Lab: [address] [address] Performing Lab: [address] [address] UREA NITROGEN 20 mg/dL 7-25 GLUCOSE 100 mg/dL 65-100 SODIUM 140 mmol/L 135-145 POTASSIUM 4.2 mmol/L 3.5-5.0 CHLORIDE 109 mmol/L 100-110 CO2 23 meq/L 20-30 CREATININE, Serum 0.96 mg/dL 0.50-1.40 eGFR(CKD-EPI 2020) 86 mL/min >60 Mar 31, 2024 09:16 AM [place] LIVER FUNCTION Specimen Type: SERUM No comment entered. Ordering Provider: GREGG HARMON Report Released Date/Time: Apr 08, 2023 02:27 PM Reporting Lab: [address] [address] Performing Lab: [address] [address] PROTEIN,TOTAL 6.0 g/dL 6.0-8.3 ALBUMIN 3.5 g/dL 3.5-5.0 ALKALINE PHOSPHATASE 70 U/L 40-150 AST 14 U/L 5-34 ALT 20 U/L BILIRUBIN, TOTAL 1.0 mg/dL 0.2-1.2 Mar 31, 2024 09:16 AM [place] CBC AND DIFF (AUTO) Specimen Type: BLOOD No comment entered. Ordering Provider: GREGG HARMON Report Released Date/Time: Apr 08, 2023 02:27 PM Reporting Lab: [address] [address] Performing Lab: [address] [address] WBC 4.01 10*3/uL L 4.50-11.00 RBC 4.67 [...] 08, 2023 09:12 AM VA-TOBACCO NEVER USED [facility] Tobacco Use History This section includes a history of the smoking, or tobacco-related health factors, that were collected on or before the date of the Encounter. The data comes from the [place] facility where the Encounter took place. Date/Time Smoking Status/Tobacco Use Comment F acility Aug 09, 2021 09:20 AM VA-TOBACCO NEVER USED [facility] Encounter Notes: All associated encounter notes This section contains the clinical notes associated to the Encounter. Date/Time Encounter Note(s) Provider Source Apr 21, 2024 02:57 PM ADDENDUM: LOCAL TITLE: Addendum STANDARD TITLE: ADDENDUM DATE OF NOTE: APR 21, 2024@14:57:20 ENTRY DATE: APR 21, 2024@14:57:21 AUTHOR: ROBIN TALAVERA COSIGNER: URGENCY: STATUS: COMPLETED Spoke with patient who asked if pregbablin can cause dizziness. Discussed that it is a possible ADR; reviewed that he is prescribed a low dose and he could start with PM dose to start and see if he has any s/sx ADRs. He states he does not want to take this medication and prefers to go natural ways . /yunior/ Robin Talavera PharmD Clinical Pharmacy Practitioner Signed: 04/21/2024 14:58 Receipt Acknowledged By: 04/26/2024 10:09 /yunior/ BREANNA BAKER RN-BC REGISTERED NURSE === --- Original Document --- 04/16/24 CCC: SCHEDULING ADMINISTRATION: Patient Demographics Patient Name: ABHILASH GARAY Patient Primary Phone: [phone] Patient Primary Address: [address] [place] [address] Patient : 1955 Patient Age: 69 Call Back Number: [phone] Caller/Recipient Relation to Patient: Self Scheduling Patient Expects Callback: Yes Administrative Administrative Note Reason: Other Administrative Note Comments: called for a status update on a call back regarding his questions on Pregabalin. stated that he would like to know if there are side effects and if the medication could cause a severe reaction like the Gabapentin. Converse has not started this medication as he is waiting for direction from his PACT Team nurse or PCP. Converse would like a call back at [phone], if no answer please leave a detailed message as it is a secure voicemail. IMPORTANT: This note was created by [facility] Clinical Contact Center staff. Please do not alert the staff member by adding them as a signer for future communications. Alerts are not monitored by this user. /es/ SIDNEY LEÓN Signed: 04/16/2024 14:23 Receipt Acknowledged By: 04/21/2024 14:44 /es/ BREANNA BAKER REGISTERED NURSE 04/21/2024 09:53 /es/ EUGENIE SALVADOR LPN Licensed Practical Nurse 04/21/2024 ADDENDUM STATUS: COMPLETED Adding PCP to review and advise. /yunior/ EUGENIE SALVADOR LPN Licensed Practical Nurse Signed: 04/21/2024 09:53 Receipt Acknowledged By: 04/22/2024 13:41 /es/ VESTA BLISS MD PRIMARY CARE PHYSICIAN 04/21/2024 ADDENDUM STATUS: COMPLETED Forwarding request for medication information to PACT pharmacist for review and advice /yunior/ BREANNA BAKER REGISTERED NURSE Signed: 04/21/2024 14:51 Receipt Acknowledged By: 04/21/2024 14:55 /yunior/ Robin Talavera PharmD Clinical Pharmacy Practitioner ROBIN TALAVERA [facility] [place] [facility] Apr 21, 2024 02:50 PM ADDENDUM: LOCAL TITLE: Addendum STANDARD TITLE: ADDENDUM DATE OF NOTE: APR 21, 2024@14:50:56 ENTRY DATE: APR 21, 2024@14:50:57 AUTHOR: RADHIKA GOMEZ COSIGNER: URGENCY: STATUS: COMPLETED Forwarding request for medication information to PACT pharmacist for review and advice /yunior/ BREANNA BAKER REGISTERED NURSE Signed: 04/21/2024 14:51 Receipt Acknowledged By: 04/21/2024 14:55 /oriana Talavera PharmD Clinical Pharmacy Practitioner === --- Original Document --- 04/16/24 CCC: SCHEDULING ADMINISTRATION: Patient Demographics Patient Name: ABHILASH GARAY Patient Primary Phone: [phone] Patient Primary [address]: [address] [place] [address] Patient : 1955 Patient Age: 69 Call Back Number: [phone] Caller/Recipient Relation to Patient: Self Scheduling Patient Expects Callback: Yes Administrative Administrative Note Reason: Other Administrative Note Comments: [place] called for a status update on a call back regarding his questions on Pregabalin. stated that he would like to know if there are side effects and if the medication could cause a severe reaction like the Gabapentin. Converse has not started this medication as he is waiting for direction from his PACT Team nurse or PCP. would like a call back at [phone], if no answer please leave a detailed message as it is a secure voicemail. IMPORTANT: This note was created by [facility] Clinical Contact [facility] staff. Please do not alert the staff member by adding them as a signer for future communications. Alerts are not monitored by this user. /es/ SIDNEY LEÓN Signed: 04/16/2024 14:23 Receipt Acknowledged By: 04/21/2024 14:44 /es/ BREANNA BAKER RN-BC REGISTERED NURSE 04/21/2024 09:53 /es/ EUGENIE SALVADOR LPN Licensed Practical Nurse 04/21/2024 ADDENDUM STATUS: COMPLETED Adding PCP to review and advise. /yunior/ EUGENIE SALVADOR LPN Licensed Practical Nurse Signed: 04/21/2024 09:53 Receipt Acknowledged By: * AWAITING SIGNATURE * VESTA BLISS [facility] [place] [facility] Apr 21, 2024 09:53 AM ADDENDUM: LOCAL TITLE: Addendum STANDARD TITLE: ADDENDUM DATE OF NOTE: APR 21, 2024@09:53:13 ENTRY DATE: APR 21, 2024@09:53:14 AUTHOR: EUGENIE SALVADOR COSIGNER: URGENCY: STATUS: COMPLETED Adding PCP to review and advise. /yunior/ EUGENIE SALVADOR LPN Licensed Practical Nurse Signed: 04/21/2024 09:53 Receipt Acknowledged By: 04/22/2024 13:41 /es/ VESTA BLISS MD PRIMARY CARE PHYSICIAN === --- Original Document --- 04/16/24 CCC: SCHEDULING ADMINISTRATION: Patient Demographics Patient Name: ABHILASH GARAY Patient Primary Phone: [phone] Patient Primary Address: [address] [place] [address] Patient : 1955 Patient Age: 69 Call Back Number: [phone] Caller/Recipient Relation to Patient: Self Scheduling Patient Expects Callback: Yes Administrative Administrative Note Reason: Other Administrative Note Comments: called for a status update on a call back regarding his questions on Pregabalin. [place] stated that he would like to know if there are side effects and if the medication could cause a severe reaction like the Gabapentin. Converse has not started this medication as he is waiting for direction from his PACT Team nurse or PCP. would like a call back at [phone], if no answer please leave a detailed message as it is a secure voicemail. IMPORTANT: This note was created by [facility] Clinical Contact [facility] staff. Please do not alert the staff member by adding them as a signer for future communications. Alerts are not monitored by this user. /es/ SIDNEY LEÓN Signed: 04/16/2024 14:23 Receipt Acknowledged By: 04/21/2024 14:44 /es/ BREANNA BAKER RN-BC REGISTERED NURSE 04/21/2024 09:53 /es/ EUGENIE SALVADOR LPN Licensed Practical Nurse 04/21/2024 ADDENDUM STATUS: COMPLETED Forwarding request for medication information to PACT pharmacist for review and advice /yunior/ BREANNA BAKER RN-BC REGISTERED NURSE Signed: 04/21/2024 14:51 Receipt Acknowledged By: 04/21/2024 14:55 /oriana Talavera PharmD Clinical Pharmacy Practitioner 04/21/2024 ADDENDUM STATUS: COMPLETED Spoke with patient who asked if pregbablin can cause dizziness. Discussed that it is a possible ADR; reviewed that he is prescribed a low dose and he could start with PM dose to start and see if he has any s/sx ADRs. He states he does not want to take this medication and prefers to go natural ways . /oriana Talavera PharmD Clinical Pharmacy Practitioner Signed: 04/21/2024 14:58 Receipt Acknowledged By: * AWAITING SIGNATURE * RADHIKA GOMEZ,EUGENIE CEDENO [facility] [place] [facility] Apr 16, 2024 02:23 PM ADMINISTRATIVE NOTE: LOCAL TITLE: CCC: SCHEDULING ADMINISTRATION STANDARD TITLE: ADMINISTRATIVE NOTE DATE OF NOTE: APR 16, 2024@14:23:21 ENTRY DATE: APR 16, 2024@14:23:21 AUTHOR: SIDNEY MEDINA COSIGNER: URGENCY: STATUS: COMPLETED CCC: SCHEDULING ADMINISTRATION Has ADDENDA Patient Demographics Patient Name: ABHILASH GARAY Patient Primary Phone: [phone] Patient Primary Address: [address] [place] [address] Patient : 1955 Patient Age: 69 Call Back Number: [phone] Caller/Recipient Relation to Patient: Self Scheduling Patient Expects Callback: Yes Administrative Administrative Note Reason: Other Administrative Note Comments: called for a status update on a call back regarding his questions on Pregabalin. [place] stated that he would like to know if there are side effects and if the medication could cause a severe reaction like the Gabapentin. Converse has not started this medication as he is waiting for direction from his PACT Team nurse or PCP. [place] would like a call back at [phone], if no answer please leave a detailed message as it is a secure voicemail. IMPORTANT: This note was created by [facility] Contact [facility] staff. Please do not alert the staff member by adding them as a signer for future communications. Alerts are not monitored by this user. /oriana LEÓN Signed: 04/16/2024 14:23 Receipt Acknowledged By: 04/21/2024 14:44 /yunior/ BRAENNA BAKER RN-RONI REGISTERED NURSE 04/21/2024 09:53 /yunior/ EUGENIE SALVADOR LPN Licensed Practical Nurse 04/21/2024 ADDENDUM STATUS: COMPLETED Adding PCP to review and advise. /oriana SALVADOR LPN Licensed Practical Nurse Signed: 04/21/2024 09:53 Receipt Acknowledged By: * AWAITING SIGNATURE * VESTA BLISS 04/21/2024 ADDENDUM STATUS: COMPLETED Forwarding request for medication information to PACT pharmacist for review and advice /BREANNA Gillespie RN-BC REGISTERED NURSE Signed: 04/21/2024 14:51 Receipt Acknowledged By: 04/21/2024 14:55 /yunior/ Robin Talavera PharmD Clinical Pharmacy Practitioner 04/21/2024 ADDENDUM STATUS: COMPLETED Spoke with patient who asked if pregbablin can cause dizziness. Discussed that it is a possible ADR; reviewed that he is prescribed a low dose and he could start with PM dose to start and see if he has any s/sx ADRs. He states he does not want to take this medication and prefers to go natural ways . /yunior/ Robin Talavera PharmD Clinical Pharmacy Practitioner Signed: 04/21/2024 14:58 Receipt Acknowledged By: * AWAITING SIGNATURE * RADHIKA GOMEZ DESIREE M [facility]
--- OUTSIDE RECORDS SUMMARY | 2024-06-29 19:07 | XMS_ITS | Encounter Summary ---
Author Name [facility] [facility] [place] Address [address] [place] [address] Care Team Providers Care Printed Circuit Board Designer Name Role Phone ABDIRAHMAN LAKE Primary [...] BASIC FAMIL Y Jun 24, 2009 112 [id number] [phone] ABHILASH GARAY PATIENT ANTHEM BCBS [place] F[place] PREFERRED PROVIDER ORGANIZAT ION (PPO) FEP BASIC FAM Jun 24, 2009 112 [id number] [phone] ABHILASH GARAY PATIENT ANTHEM BCBS [place] FEP PREFERRED PROVIDER ORGANIZAT ION (PPO) FEP BASIC FAM Jun 24, 2009 112 [id number] [phone] ABHILASH GARAY PATIENT ANTHEM [place] F[place] PREFERRED PROVIDER ORGANIZAT ION (PPO) FEP BASIC FAM Jun 24, 2009 112 [id number] [phone] ABHILASH GARAY PATIENT [place] FEP PREFERRED PROVIDER ORGANIZAT ION (PPO) FEP BASIC FAM Jun 24, 2009 112 [id number] [phone] ABHILASH GARAY PATIENT BCBS [place] FEP PREFERRED PROVIDER ORGANIZAT ION (PPO) BASIC FAMIL Y Jun 24, 2009 [id number] ABHILASH GARAY PATIENT [place] PREFERRED PROVIDER ORGANIZAT ION (PPO) BASIC FAMIL Y Jun 24, 2009 [id number] ABHILASH GARAY PATIENT [place] FEP PREFERRED PROVIDER ORGANIZAT ION (PPO) BASIC FAMIL Y Jun 24, 2009 [id number] ABHILASH GARAY PATIENT [place] FEP DENTAL DENTAL INSURANCE BASIC Jul 12, 2009 DENTAL [id number] ABHILASH GARAY PATIENT [place] FEP PREFERRED PROVIDER ORGANIZAT ION (PPO) BASIC FAMIL Y Jun 24, 2009 112 [id number] [phone] ABHILASH GARAY PATIENT [place] FEP ([id number]) PRESCRIPT ION FEPRX Jun 24, 2009 [id number] [phone] ABHILASH GARAY PATIENT [place] FEP BCBS PRESCRIPT ION CAREM ARK FEPRX PLAN Nov 21, 2021 [id number] ABHILASH GARAY PATIENT [place] FEPRX PLAN PRESCRIPT ION CAREM ARK FEPRX Nov 21, 2021 [id number] ABHILASH AGRAY PATIENT [place]-F EP BCBS PRESCRIPT ION FEP CAREM ARK Nov 21, 2021 [id number] ABHILASH GARAY PATIENT [place]-F EP BCBS PRESCRIPT ION FEP Jun 23, 2010 [id number] ABHILASH GARAY PATIENT MEDICARE (WN) MEDICARE () PART A Feb 22, 2020 PART A [id number] ABHILASH GARAY PATIENT MEDICARE ([facility]) MEDICARE () PART A Feb 22, 2020 PART A [id number] ABHILASH GARAY PATIENT MEDICARE (WNR) MEDICARE (M) PART A Feb 22, 2020 PART A [id number] ABHILASH GARAY PATIENT MEDICARE (WNR) MEDICARE (M) PART A Feb 22, 2020 PART A [id number] ABHILASH GARAY PATIENT MEDICARE (WNR) MEDICARE (M) PART A Feb 22, 2020 PART A [id number] ABHILASH GARAY PATIENT Selected Encounter This section includes the information on record at [place] for the Encounter. Date/Time Encounter Type Encounter Description Reason Provider Source Apr 27, 2024 01:19 PM Outpatient Encounter TELEPHONE PRIMARY CARE ICD-10-CM G90.09 Other idiopathic peripheral autonomic neuropathy GIANLUCA DENNISON [facility] Encounter Template Text not used by [place] Assessments - Encounter Diagnoses This section includes the primary and secondary diagnoses documented for the Encounter. Date/Time Primary/Secondary Diagnosis Diagnosis Name Provider Source Apr 27, 2024 01:19 PM PRIMARY Other idiopathic peripheral autonomic neuropathy GIANLUCA DENNISON [facility] Plan of Treatment: Future Appointments (+ [...] 03, 2024 01:00 PM AMBULATORY - [facility] May 17, 2024 01:00 PM [facility]AB [facility] May 28, 2024 07:30 AM [facility] [place] [place] [facility] Jun 03, 2024 01:00 PM AMBULATORY - [facility]ICINE [facility] [place] Jun 08, 2024 03:00 PM [facility] Jun 11, 2024 08:00 AM [facility] [place]IC[place] Jun 11, 2024 02:00 PM AMBULATORY - [place] Jun 14, 2024 10:30 AM AM[facility]ULAT[facility]ICINE [place] [facility] Jun 15, 2024 10:00 AM AMBULATORY - RE[place]AB [facility] [place] Jun 22, 2024 11:30 AM AMBULATORY - MEDICINE [place] [facility] Jun 22, 2024 03:00 PM AMBULATORY - RE[facility]AB [facility] [place] Jun 24, 2024 01:00 PM AMBULATORY - MEDICINE [place] [facility] Jun 28, 2024 11:00 AM AMBULATORY - NONE [place] [facility] Jul 07, 2024 01:00 PM AMBULATORY - MEDICINE [place] Jul 23, 2024 01:30 PM AMBULATORY - MEDICINE [place] [facility] Aug 04, 2024 10:00 AM AMBULATORY - MEDICINE [place] [facility] [place] [facility] Aug 25, 2024 10:30 AM AMBULATORY - MEDICINE [place] [facility] Sep 21, 2024 01:30 PM AMBULATORY - MEDICINE [place] Oct 05, 2024 11:00 AM [facility] - [facility]ICINE [facility] Active, Pending, and Scheduled Orders [...] The data comes from all [place] treatment [facility]. Test Date/Time Test Type Test Details Facility Name Apr 08, 2024 12:00 AM Laboratory - Chemistry Order URINALYSIS URINE SP [place] Apr 15, 2024 03:06 PM Consult Order [facility]-NEUROLOGY Cons Refrigeration [facility] [place] [facility] Jun 01, 2024 11:54 AM Consult Order [facility] MASSAGE THERAPY Cons Refrigeration [facility] [place] Lab Results: +/- 30 days of the [...] Range Comment Apr 15, 2024 11:16 AM [facility] CPK Specimen Type: SERUM No comment entered. Ordering Provider: GIANLUCA DENNISON Report Released Date/Time: Apr 15, 2024 10:55 AM Reporting Lab: [facility] [address] [facility] [address] Performing Lab: [address] [address] CPK 67 U/L 30-200 Mar 31, 2024 09:16 AM [place] HEMOGLOBIN A1C PANEL Specimen Type: BLOOD Comment: [...] Apr 08, 2023 02:27 PM Reporting Lab: [facility] [address] [facility] [facility] [address] Performing Lab: [address] [address] HEMOGLOBIN A1C 5.2 4.0-5.6 Mar 31, 2024 09:16 AM [place] BASIC METABOLIC PANEL (fasting) Specime n Type: SERUM No comment entered. Ordering Provider: GREGG HARMON Report Released Date/Time: Apr 08, 2023 02:27 PM Reporting Lab: [facility] [address] [facility] [facility] [address] Performing Lab: [address] [address] UREA NITROGEN 20 mg/dL 7-25 GLUCOSE 100 mg/dL 65-100 SODIUM 140 mmol/L 135-145 POTASSIUM 4.2 mmol/L 3.5-5.0 CHLORIDE 109 mmol/L 100-110 CO2 23 meq/L 20-30 CREATININE, Serum 0.96 mg/dL 0.50-1.40 eGFR(CKD-EPI 2020) 86 mL/min >60 Mar 31, 2024 09:16 AM [place] TSH Specimen Type: SERUM No comment entered. Ordering Provider: GREGG HARMON Report Released Date/Time: Apr 08, 2023 02:27 PM Reporting Lab: [facility] [address] [address] Performing Lab: [facility] [address] [address] TSH 2.67 u[IU]/mL 0.35-5.00 Mar 31, 2024 09:16 AM [place] LIPID PANEL FASTING Specimen Type: SERUM No comment entered. Ordering Provider: GREGG HARMON Report Released Date/Time: Apr 08, 2023 02:27 PM Reporting Lab: [address] [address] Performing Lab: [address] [address] CHOLESTEROL 164 mg/dL TRIGLYCERIDE 102 mg/dL 0-150 LDL calculated 101 mg/dL 0-129 CHOL/HDL 3.8 HDL CHOLESTEROL 43 mg/dL 40-60 Mar 31, 2024 09:16 AM [place] LIVER FUNCTION Specimen Type: SERUM No comment entered. Ordering Provider: GREGG HARMON Report Released Date/Time: Apr 08, 2023 02:27 PM Reporting Lab: [address] [address] Performing Lab: [address] [address] PROTEIN,TOTAL 6.0 g/dL 6.0-8.3 ALBUMIN 3.5 g/dL 3.5-5.0 ALKALINE PHOSPHATASE 70 U/L 40-150 AST 14 U/L 5-34 ALT 20 U/L BILIRUBIN, TOTAL 1.0 mg/dL 0.2-1.2 Mar 31, 2024 09:16 AM [place] CBC AND DIFF (AUTO) Specimen Type: BLOOD No comment entered. Ordering Provider: GREGG HARMON Report Released Date/Time: Apr 08, 2023 02:27 PM Reporting Lab: [facility] [address] [address] Performing Lab: [facility] [address] [facility] [facility] [address] WBC 4.01 10*3/uL L 4.50-11.00 RBC 4.67 [...] 08, 2023 09:12 AM VA-TOBACCO NEVER USED [facility] Tobacco Use History This section includes a history of the smoking, or tobacco-related health factors, that were collected on or before the date of the Encounter. The data comes from the [place] facility where the Encounter took place. Date/Time Smoking Status/Tobacco Use Comment F darvin Aug 09, 2021 09:20 AM [place]-TOBACCO NEVER USED [facility] Encounter Notes: All associated encounter notes This section contains the clinical notes associated to the Encounter. Date/Time Encounter Note(s) Provider Source Apr 27, 2024 01:19 PM [facility]: LOCAL TITLE: PAIN CLINIC NOTE STANDARD TITLE: PAIN MEDICINE OUTPATIENT NOTE DATE OF NOTE: APR 27, 2024@13:19 ENTRY DATE: APR 27, 2024@13:19:28 AUTHOR: GIANLUCA DENNISON EXP COSIGNER: URGENCY: STATUS: COMPLETED Phone visit with patient. 13 minutes. This was in response to his secure message request to get walkasins. I did some online research about the device and discussed it with pain team physical therapist. The device is a variation on AFO and is designed to prevent falls. Studies have shown statistically significant benefit, but it is not clear how clinically signficant it is. Our rehab department has apparently reviewed the device and opted not to stock it. I discussed with patient that he has not had PT to address balance issues, and this should be a first step. He was agreeable. It is also notable that the main study of Walkasins excluded any patients who practice cheyanne chi, presumably because that is proven to improve balance. PLAN: 1. Referral to PT for balance issues related to peripheral neuropathy. 2. f/u as planned 06/02; at that time will assess if he feels PT is helping and will discuss potential benefit of cheyanne chi. /yunior/ Gianluca Dennison MD STAFF PHYSICIAN Signed: 04/27/2024 13:38 Receipt Acknowledged By: 04/27/2024 14:19 /yunior/ REED TRUJILLO DPT PHYSICAL THERAPIST GIANLUCA DENNISON [facility]
--- OUTSIDE RECORDS SUMMARY | 2024-06-29 19:07 | XMS_ITS | Encounter Summary ---
Author Name [facility] [place] Address [address] [place] [address] Care Team Providers Care Sports Doctor Name Role Phone ABDIRAHMAN LAKE Primary Care [...] BASIC FAMIL Y Jun 24, 2009 112 [id number] [phone] ABHILASH GARAY PATIENT ANTHEM BCBS [place] FEP PREFERRED PROVIDER ORGANIZAT ION (PPO) FEP BASIC FAM Jun 24, 2009 112 [id number] [phone] ABHILASH GARAY PATIENT ANTHEM BCBS [place] FEP PREFERRED PROVIDER ORGANIZAT ION (PPO) FEP BASIC FAM Jun 24, 2009 112 [id number] [phone] ABHILASH GARAY PATIENT [place] PREFERRED PROVIDER ORGANIZAT ION (PPO) FEP BASIC FAM Jun 24, 2009 112 [id number] [phone] ABHILASH GARAY PATIENT [place] F[place] PREFERRED PROVIDER ORGANIZAT ION (PPO) FEP BASIC FAM Jun 24, 2009 112 [id number] [phone] ABHILASH GARAY PATIENT [place] FEP PREFERRED PROVIDER ORGANIZAT ION (PPO) BASIC FAMIL Y Jun 24, 2009 [id number] ABHILASH GARAY PATIENT [place] FEP PREFERRED PROVIDER ORGANIZAT ION (PPO) BASIC FAMIL Y Jun 24, 2009 [id number] ABHILASH GARAY PATIENT [place] FEP PREFERRED PROVIDER ORGANIZAT ION (PPO) BASIC FAMIL Y Jun 24, 2009 [id number] ABHILASH GARAY PATIENT [place] F[place] DENTAL DENTAL INSURANCE BASIC Jul 12, 2009 DENTAL [id number] [phone] ABHILASH GARAY PATIENT [place] FEP PREFERRED PROVIDER ORGANIZAT ION (PPO) BASIC FAMIL Y Jun 24, 2009 [id number] ABHILASH GARAY PATIENT [place] FEP ([id number]) PRESCRIPT ION FEPRX Jun 24, 2009 [id number] [phone] ABHILASH GARAY PATIENT [place] FEP BCBS PRESCRIPT ION CAREM ARK FEPRX PLAN Nov 21, 2021 [id number] ABHILASH GARAY PATIENT [place] FEPRX PLAN PRESCRIPT ION CAREM ARK FEPRX Nov 21, 2021 [id number] ABHILASH GARAY PATIENT [place]-F EP BCBS PRESCRIPT ION FEP CAREM ARK Nov 21, 2021 [id number] ABHILASH GARAY PATIENT [place]-F EP BCBS PRESCRIPT ION FEP Jun 23, 2010 [id number] ABHILASH GARAY PATIENT MEDICARE (WN) MEDICARE () PART A Feb 22, 2020 PART A [id number] ABHILASH GARAY PATIENT MEDICARE ([facility]) MEDICARE () PART A Feb 22, 2020 PART A [id number] ABHILASH GARAY PATIENT MEDICARE (WNR) MEDICARE (M) PART A Feb 22, 2020 PART A [id number] [phone] ABHILASH GARAY PATIENT MEDICARE (WNR) MEDICARE (M) PART A Feb 22, 2020 PART A [id number] ABHILASH GARAY PATIENT MEDICARE (WNR) MEDICARE (M) PART A Feb 22, 2020 PART A [id number] NV71 [phone] ABHILASH GARAY PATIENT Selected Encounter This section includes the information on record at [place] for the Encounter. Date/Time Encounter Type Encounter Description Reason Pro vider Source May 14, 2024 01:42 PM Outpatient Encounter COMMUNITY CARE CONSULT IHE Encounter Template Text not used by [place] Plan of Treatment: Future Appointments (+ 6 months) and Future Tests (+/- 45 days) The Plan of Treatment section includes future care activities for the patient from [facility] [place] [facility] This section includes future appointments and future orders which are active, pending or scheduled. Future Appointments This section includes appointments that were scheduled to occur 6 months from the date of the Encounter, up to a maximum of 20 appointments. The data comes from all [place] treatment facilities. Appointment Date/Time Appointment Type Appointme nt Facility Name May 17, 2024 01:00 PM AMBULATORY - REHAB [facility] May 28, 2024 07:30 AM AMBULATORY - MEDICINE [place] [facility] Jun 03, 2024 01:00 PM AMBULATORY - MEDICINE [place] [facility] Jun 08, 2024 03:00 PM AMBULATORY - RE[facility]AB [facility] Jun 11, 2024 08:00 AM [facility] Jun 11, 2024 02:00 PM AMBULATORY - REHAB [facility] Jun 14, 2024 10:30 AM AMBULATORY - MEDICINE [place] [facility] Jun 15, 2024 10:00 AM AMBULATORY - REHAB [facility]ICIN [facility] Jun 22, 2024 11:30 AM AMBULATORY - MEDICINE [facility]L [place] [facility] Jun 22, 2024 03:00 PM AMBULATORY - REHAB MEDICIN [place] Jun 24, 2024 01:00 PM AMBULATORY - MEDICINE [facility] [place] [facility] Jun 28, 2024 11:00 AM AMBULATORY - NONE [facility] [place] [facility] Jul 07, 2024 01:00 PM AMBULATORY - MEDICINE [place] Jul 23, 2024 01:30 PM AMBULATORY - MEDICINE [facility] [place] [facility] Aug 04, 2024 10:00 AM AMBULATORY - MEDICINE [facility] [place] [place] [facility] Aug 25, 2024 10:30 AM AMBULATORY - MEDICINE [facility] [place] [facility] Sep 21, 2024 01:30 PM AMBULATORY - MEDICINE [place] Oct 05, 2024 11:00 AM [facility] Active, Pending, and Scheduled Orders This section includes a listing of several types of active, pending, and scheduled orders, including clinic medications orders, diagnostic test orders, procedure orders and consult orders; where the start date of the order is 45 days before the date of the Encounter or 45 days after the date of theEncounter. The data comes from all [place] treatment facilities. Test Date/Time Test Type Test Details Facility Name Apr 08, 2024 12:00 AM Laboratory - Chemistry Order URINALYSIS URINE SP [place] Apr 15, 2024 03:06 PM Consult Order [facility]NEUROLOGY Cons Presser Cotton [facility] [place] [facility] Jun 01, 2024 11:54 AM Consult Order [facility] MASSAGE THERAPY Cons Presser Cotton [facility] [place] Lab Results: +/- 30 days of the encounter This section includes the Chemistry and Hematology Lab Results on record with [place] for the patient. Radiology Reports and Pathology Reports are provided separately, in subsequent sections. Lab Results This section contains the Chemistry/Hematology Results that were resulted 30 days before or 30 daysafter the date of the Encounter. Date/Time Source Result Type Result - Unit Interpretation Reference Range Comment Apr 15, 2024 11:16 AM [facility] CPK Specimen Type: SERUM No comment entered. Ordering Provider: JOHN PAUL DENNISON Report Released Date/Time: Apr 15, 2024 10:55 AM Reporting [facility] [address] [address] Performing Lab: [facility] [address] [facility] [address] CPK 67 U/L 30-200 Social History: Smoking Status (Most current) and [...] 08, 2023 09:12 AM VA-TOBACCO NEVER USED [facility] Tobacco Use History This section includes a history of the smoking, or tobacco-related health factors, that were collected on or before the date of the Encounter. The data comes from the [place] facility where the Encounter took place. Date/Time Smoking Status/Tobacco Use Comment F acility Aug 09, 2021 09:20 AM VA-TOBACCO NEVER USED [facility] Encounter Notes: All associated encounter notes This section contains the clinical notes associated to the Encounter. Date/Time Encounter Note(s) Provider Source May 14, 2024 01:47 PM ADMINISTRATIVE NOT E: LOCAL TITLE: ADMINISTRATIVE NOTE STANDARD TITLE: ADMINISTRATIVE NOTE DATE OF NOTE: MAY 14, 2024@13:47 ENTRY DATE: MAY 14, 2024@13:47:20 AUTHOR: ALMA ROSA MEZA COSIGNER: URGENCY: STATUS: COMPLETED ADMINISTRATIVE NOTE Has ADDENDA Design Release Engineer recv'd call from re: status of auth for continuation of care for photo therapy @ [facility]. Design Release Engineer called [facility] s/w [facility]. She stated they sent a request pior to the appt that was scheduled on 05/10/24. Appt was cancelled due to no valid auth. If approved, a new consult is needed. /yunior/ ALMA ROSA MEZA Signed: 05/14/2024 13:59 Receipt Acknowledged By: 05/14/2024 14:33 /es/ STEF BAKERN RN-BC REGISTERED NURSE 05/14/2024 14:56 /es/ JEAN CLAUDE MENDEZ CERTIFIED NURSE PRACTITIONER 05/14/2024 ADDENDUM STATUS: COMPLETED Placed CC dermatology continuation of care consult as requested and held for provider review. /yunior/ STEF BAKERN RN-BC REGISTERED NURSE Signed: 05/14/2024 14:33 [facility] ROSA MEZA [facility]
--- OUTSIDE RECORDS SUMMARY | 2024-06-29 19:07 | XMS_ITS | Encounter Summary ---
Author Name [facility] [place] [facility] [place] Address [address] [place] [address] Care Team Providers Care Transportation Worker Name Role Phone ABDIRAHMAN LA[place] Primary [...] BASIC FAMIL Y Jun 24, 2009 [id number] [phone] ABHILAHS GARAY PATIENT ANTHEM BCBS [place] FEP PREFERRED PROVIDER ORGANIZAT ION (PPO) FEP BASIC FAM Jun 24, 2009 112 [id number] [phone] ABHILASH GARAY PATIENT ANTHEM BCBS [place] FEP PREFERRED PROVIDER ORGANIZAT ION (PPO) FEP BASIC FAM Jun 24, 2009 112 [id number] [phone] ABHILASH GARAY PATIENT ANTHEM [place] FEP PREFERRED PROVIDER ORGANIZAT ION (PPO) FEP BASIC FAM Jun 24, 2009 112 [id number] [phone] ABHILASH GARAY PATIENT [place] FEP PREFERRED PROVIDER ORGANIZAT ION (PPO) FEP BASIC FAM Jun 24, 2009 112 [id number] [phone] ABHILASH GARAY PATIENT BCBS [place] FEP PREFERRED PROVIDER ORGANIZAT ION (PPO) BASIC FAMIL Y Jun 24, 2009 [id number] ABHILASH GARAY PATIENT [place] PREFERRED PROVIDER ORGANIZAT ION (PPO) BASIC FAMIL Y Jun 24, 2009 112 [id number] [phone] ABHILASH GARAY PATIENT [place] FEP PREFERRED PROVIDER ORGANIZAT ION (PPO) BASIC FAMIL Y Jun 24, 2009 [id number] ABHILASH GARAY PATIENT [place] FEP DENTAL DENTAL INSURANCE BASIC Jul 12, 2009 DENTAL [id number] ABHILASH GARAY PATIENT [place] FEP PREFERRED PROVIDER ORGANIZAT ION (PPO) BASIC FAMIL Y Jun 24, 2009 [id number] ABHILASH GARAY PATIENT [place] FEP ([id number]) PRESCRIPT ION FEPRX Jun 24, 2009 [id number] [phone] ABHILASH GARAY PATIENT [place] FEP BCBS PRESCRIPT ION CAREM ARK FEPRX PLAN Nov 21, 2021 [id number] ABHILASH GARAY PATIENT [place] FEPRX PLAN PRESCRIPT ION CAREM ARK FEPRX Nov 21, 2021 [id number] ABHILASH GARAY PATIENT [place]-F EP BCBS PRESCRIPT ION FEP CAREM ARK Nov 21, 2021 [id number] ABHILASH GARAY PATIENT [place]-F EP BCBS PRESCRIPT ION FEP Jun 23, 2010 [id number] ABHILASH GARAY PATIENT MEDICARE (WN) MEDICARE () PART A Feb 22, 2020 PART A [id number] ABHILASH GARAY PATIENT MEDICARE ([facility]) MEDICARE () PART A Feb 22, 2020 PART A [id number] ABHILASH GARAY PATIENT MEDICARE (WNR) MEDICARE (M) PART A Feb 22, 2020 PART A [id number] ABHILASH GARAY PATIENT MEDICARE (WNR) MEDICARE (M) PART A Feb 22, 2020 PART A [id number] ABHILASH GARAY PATIENT MEDICARE (WNR) MEDICARE (M) PART A Feb 22, 2020 PART A [id number] [id number] ABHILASH GARAY PATIENT Selected Encounter This section includes the information on record at [place] for the Encounter. Date/Time Encounter Type Encounter Description Reason Pro vider Source Apr 27, 2024 09:07 AM Outpatient Encounter TELEPHONE PRIMARY CARE IHE Encounter Template Text not used by [place] Plan of Treatment: Future Appointments (+ 6 months) and Future Tests (+/- 45 days) The Plan of Treatment section includes future care activities for the patient [facility] [place] [facility] This section includes future [...] 03, 2024 01:00 PM AMBULATORY - MEDICINE [place] [facility] May 17, 2024 01:00 [facility], [facility]24 07:30 AM AMBULATORY - MEDICINE [place] [facility] Jun 03, 2024 01:00 PM AMBULATORY - MEDICINE [place] [facility] Jun 08, 2024 03:00 PM AMBULATORY - [facility]AB [facility] Jun 11, 2024 08:00 AM AMBULATORY - MEDICINE [facility] Jun 11, 2024 02:00 PM AMBULATORY - REHAB MEDICIN [facility] Jun 14, 2024 10:30 AM AMBULATORY - MEDICINE [place] [facility] Jun 15, 2024 10:00 [facility] Jun 22, 2024 11:30 AM AMBULATORY - MEDICINE [place] [facility] Jun 22, 2024 03:00 PM AMBULATORY - REHAB MEDICIN [place] Jun 24, 2024 01:00 PM AMBULATORY - MEDICINE [place] [facility] Jun 28, 2024 11:00 AM AMBULATORY - NONE [place] [facility] Jul 07, 2024 01:00 PM AMBULATORY - MEDICINE [place] Jul 23, 2024 01:30 PM AMBULATORY - MEDICINE [place] [facility] Aug 04, 2024 10:00 AM AMBULATORY - MEDICINE [place] [facility] Aug 25, 2024 10:30 AM AMBULATORY - MEDICINE [place] [facility] Sep 21, 2024 01:30 PM AMBULATORY - MEDICINE [place] Oct 05, 2024 11:00 AM [facility]ULATORY - MEDICINE [facility] Active, Pending, and Scheduled Orders This section includes a listing of several types of active, pending, and scheduled orders, including clinic medications orders, diagnostic test orders, procedure orders and consult orders; where the start date of the order is 45 days before the date of the Encounter or 45 days after the date of theEncounter. The data comes from all [place] treatment facilities. Test Date/Time Test Type Test Details Facility Name Apr 08, 2024 12:00 AM Laboratory - Chemistry Order URINALYSIS URINE [place] Apr 15, 2024 03:06 PM Consult Order [facility]-NEUROLOGY Cons Line Pilot's Choice [place] [facility] Jun 01, 2024 11:54 AM Consult Order [facility] THERAPY Cons Line Pilot's Choice [place] Lab Results: +/- 30 days of the encounter This section includes the Chemistry and Hematology Lab Results on record with [place] for the patient. Radiology Reports and Pathology Reports are provided separately, in subsequent sections. Lab Results This section contains the Chemistry/Hematology Results that were resulted 30 days before or 30 daysafter the date of the Encounter. Date/Time Source Result Type Result - Unit Interpretation Reference Range Comment Apr 15, 2024 11:16 AM [facility]TR [facility] CPK Specimen Type: SERUM No comment entered. Ordering Provider: JOHN PAUL DENNISON Report Released Date/Time: Apr 15, 2024 10:55 AM Reporting Lab: [facility] [address] [address] Performing Lab: [facility] [address] CPK 67 U/L 30-200 Mar 31, 2024 09:16 AM [place] HEMOGLOBIN A1C PANEL Specimen Type: BLOOD Comment: [...] 02:27 PM Reporting Lab: [address] [address] Performing Lab: [address] [address] HEMOGLOBIN A1C 5.2 4.0-5.6 Mar 31, 2024 09:16 AM [place] TSH Specimen Type: SERUM No comment entered. Ordering Provider: GREGG HARMON Report Released Date/Time: Apr 08, 2023 02:27 PM Reporting Lab: [facility] [address] [address] Performing Lab: [address] [address] TSH 2.67 u[IU]/mL 0.35-5.00 Mar 31, 2024 09:16 AM [place] LIPID PANEL FASTING Specimen Type: SERUM No comment entered. Ordering Provider: GREGG HARMON Report Released Date/Time: Apr 08, 2023 02:27 PM Reporting Lab: [facility] [address] [address] Performing Lab: [facility] [address] [address] CHOLESTEROL 164 mg/dL TRIGLYCERIDE 102 mg/dL 0-150 LDL calculated 101 mg/dL 0-129 CHOL/HDL 3.8 HDL CHOLESTEROL 43 mg/dL 40-60 Mar 31, 2024 09:16 AM [place] BASIC METABOLIC PANEL (fasting) Specime n Type: SERUM No comment entered. Ordering Provider: GREGG HARMON Report Released Date/Time: Apr 08, 2023 02:27 PM Reporting Lab: [address] [address] Performing Lab: [address] [address] U[place] NITROGEN 20 mg/dL 7-25 GLUCOSE 100 mg/dL 65-100 SODIUM 140 mmol/L 135-145 POTASSIUM 4.2 mmol/L 3.5-5.0 CHLORIDE 109 mmol/L 100-110 CO2 23 meq/L 20-30 CREATININE, Serum 0.96 mg/dL 0.50-1.40 eGFR(CKD-EPI 2020) 86 mL/min >60 Mar 31, 2024 09:16 AM [place] LIVER FUNCTION Specimen Type: SERUM No comment entered. Ordering Provider: GREGG HARMON Report Released Date/Time: Apr 08, 2023 02:27 PM Reporting Lab: [address] [address] Performing Lab: [address] [address] PROTEIN,TOTAL 6.0 g/dL 6.0-8.3 ALBUMIN 3.5 g/dL 3.5-5.0 ALKALINE PHOSPHATASE 70 U/L 40-150 AST 14 U/L 5-34 ALT 20 U/L BILIRUBIN, TOTAL 1.0 mg/dL 0.2-1.2 Mar 31, 2024 09:16 AM [place] CBC AND DIFF (AUTO) Specimen Type: BLOOD No comment entered. Ordering Provider: GREGG HARMNO Report Released Date/Time: Apr 08, 2023 02:27 PM Reporting Lab: [address] [address] Performing Lab: [address] [address] WBC 4.01 10*3/uL L 4.50-11.00 RBC 4.67 [...] 08, 2023 09:12 AM VA-TOBACCO NEVER USED [facility] Tobacco Use History This section includes a history of the smoking, or tobacco-related health factors, that were collected on or before the date of the Encounter. The data comes from the [place] facility where the Encounter took place. Date/Time Smoking Status/Tobacco Use Comment F darvin Aug 09, 2021 09:20 AM VA-TOBACCO NEVER USED [facility] Encounter Notes: All associated encounter notes This section contains the clinical notes associated to the Encounter. Date/Time Encounter Note(s) Provider Source Apr 27, 2024 09:07 AM TELEPHONE ENCOUNTE R NOTE: LOCAL TITLE: TELEPHONE NOTE/SPECIALTY CLINIC STANDARD TITLE: TELEPHONE ENCOUNTER NOTE DATE OF NOTE: APR 27, 2024@09:07 ENTRY DATE: APR 27, 2024@09:07:39 AUTHOR: CHI GRACE EXP COSIGNER: URGENCY: STATUS: COMPLETED [place] called stating he has some questions about his cpap usage. Veterans phone number on file has been confirmed. /yunior/ CHI GRACE TISSUE REWINDER Signed: 04/27/2024 09:08 Receipt Acknowledged By: 04/27/2024 14:45 /es/ JANIE STERLING,TEXTILE DESIGNS SALES REPRESENTATIVE RESPIRATORY THERAPIST 04/27/2024 16:43 /es/ ALMA ROSA CLARK RESPIRATORY THERAPIST 04/27/2024 14:17 /es/ JANIE CARPIO, FREIGHT TEAM ASSOCIATE RESPIRATORY THERAPIST [facility]
--- OUTSIDE RECORDS SUMMARY | 2024-06-29 19:07 | XMS_ITS ---
Author Name [facility] [place] Address [address] [place] [address] Care Team Providers Care Gyroscopic Instrument Mechanic Name Role Phone ABDIRAHMAN LA[place] Primary [...] BASIC FAMIL Y Jun 24, 2009 [id number] [phone] ABHILASH GARAY PATIENT ANTHEM BCBS [place] FEP PREFERRED PROVIDER ORGANIZAT ION (PPO) FEP BASIC FAM Jun 24, 2009 112 [id number] [phone] ABHILASH GARAY PATIENT ANTHEM BCBS [place] FEP PREFERRED PROVIDER ORGANIZAT ION (PPO) FEP BASIC FAM Jun 24, 2009 112 [id number] [phone] ABHILASH GARAY PATIENT ANTHEM [place] PREFERRED PROVIDER ORGANIZAT ION (PPO) FEP BASIC FAM Jun 24, 2009 112 [id number] [phone] ABHILASH GARAY PATIENT [place] F[place] PREFERRED PROVIDER ORGANIZAT ION (PPO) FEP BASIC FAM Jun 24, 2009 112 [id number] [phone] ABHILASH GARAY PATIENT BCBS [place] FEP PREFERRED PROVIDER ORGANIZAT ION (PPO) BASIC FAMIL Y Jun 24, 2009 [id number] ABHILASH GARAY PATIENT [place] FEP PREFERRED PROVIDER ORGANIZAT ION (PPO) BASIC FAMIL Y Jun 24, 2009 [id number] ABHILASH GARAY PATIENT [place] FEP PREFERRED PROVIDER ORGANIZAT ION (PPO) BASIC FAMIL Y Jun 24, 2009 [id number] ABHILASH GARAY PATIENT [place] FEP DENTAL DENTAL INSURANCE BASIC Jul 12, 2009 DENTAL [id number] ABHILASH GARAY PATIENT [place] FEP PREFERRED PROVIDER ORGANIZAT ION (PPO) BASIC FAMIL Y Jun 24, 2009 [id number] [phone] ABHILASH AGRAY PATIENT [place] FEP ([id number]) PRESCRIPT ION FEPRX Jun 24, 2009 [id number] [phone] ABHILASH GARAY PATIENT [place] FEP BCBS PRESCRIPT ION CAREM ARK FEPRX PLAN Nov 21, 2021 [id number] ABHILASH GARAY PATIENT [place] FEPRX PLAN PRESCRIPT ION CAREM ARK FEPRX Nov 21, 2021 [id number] ABHILASH GARAY PATIENT [place]-F EP BCBS PRESCRIPT ION FEP CAREM ARK Nov 21, 2021 [id number] ABHILASH GARAY PATIENT [place]-F EP BCBS PRESCRIPT ION FEP Jun 23, 2010 [id number] ABHILASH GARAY PATIENT MEDICARE (WN) MEDICARE () PART A Feb 22, 2020 PART A [id number] ABHILASH GARAY PATIENT MEDICARE ([facility]) MEDICARE () PART A Feb 22, 2020 PART A [id number] [phone] ABHILASH GARAY PATIENT MEDICARE (WNR) MEDICARE (M) PART A Feb 22, 2020 PART A [id number] [phone] ABHILASH GARAY PATIENT MEDICARE (WNR) MEDICARE (M) PART A Feb 22, 2020 PART A [id number] ABHILASH GARAY PATIENT MEDICARE (WNR) MEDICARE (M) PART A Feb 22, 2020 PART A [id number] ABHILASH GARAY PATIENT Selected Encounter This section includes the information on record at [place] for the Encounter. Date/Time Encounter Type Encounter Description Reason Pro vider Source Apr 07, 2024 12:00 PM Outpatient Encounter COMMUNITY CARE CONSULT IHE Encounter Template Text not used by [place] Plan of Treatment: Future Appointments (+ 6 months) and Future Tests (+/- 45 days) The Plan of Treatment section includes future care activities for the patient from all [place] [facility]. This section includes future appointments and future orders which are active, pending or scheduled. Future Appointments This section includes appointments that were scheduled to occur 6 months from the date of the Encounter, up to a maximum of 20 appointments. The data comes from all [place] treatment facilities. Appointment Date/Time Appointment Type Appointme nt Facility Name Apr 08, 2024 01:00 PM AMBULATORY - MEDICINE [facility] [place] [facility] Apr 12, 2024 11:00 AM AMBULATORY - MEDICINE [place] [facility] Apr 15, 2024 10:00 AM AMBULATORY - MEDICINE [place] [facility] Apr 19, 2024 11:00 AM AMBULATORY - MEDICINE [place] [facility] Apr 22, 2024 09:00 AM AMBULATORY - MEDICINE [place] [facility] May 03, 2024 01:00 PM AMBULATORY - MEDICINE [place] [facility] May 17, 2024 01:00 PM AMBULATORY - REHAB [facility] May 28, 2024 07:30 AM AMBULATORY - MEDICINE [place] [facility] Jun 03, 2024 01:00 PM AMBULATORY - MEDICINE [place] C [place] [facility] Jun 08, 2024 03:00 PM AMBULATORY - REHAB MEDICIN [place] Jun 11, 2024 08:00 AM AMBULATORY - MEDICINE [facility] Jun 11, 2024 02:00 PM AMBULATORY - REHAB MEDICIN [place] Jun 14, 2024 10:30 AM AMBULATORY - MEDICINE [place] [facility] Jun 15, 2024 10:00 AM AMBULATORY - REHAB MEDICIN [place] Jun 22, 2024 11:30 AM AMBULATORY - MEDICINE [place] [facility] Jun 22, 2024 03:00 PM AMBULATORY - REHAB MEDICIN [place] Jun 24, 2024 01:00 PM AMBULATORY - MEDICINE [place] C [place] [facility] Jun 28, 2024 11:00 AM AMBULATORY - NONE [place] [facility] Jul 07, 2024 01:00 PM AMBULATORY - MEDICINE [facility] Jul 23, 2024 01:30 PM AMBULATORY - MEDICINE [facility] Active, Pending, and Scheduled Orders This section includes a listing of several types of active, pending, and scheduled orders, including clinic medications orders, diagnostic test orders, procedure orders and consult orders; where the start date of the order is 45 days before the date of the Encounter or 45 days after the date of theEncounter. The data comes from all [place] treatment facilities. Test Date/Time Test Type Test Details Facility Name Apr 08, 2024 12:00 AM Laboratory - Chemistry Order URINALYSIS URINE [facility] Apr 15, 2024 03:06 PM Consult Order [facility]-NEUROLOGY Cons Matrix Bath Operator's Choice [facility] Lab Results: +/- 30 days of the encounter This section includes the Chemistry and Hematology Lab Results on record with [place] for the patient. Radiology Reports and Pathology Reports are provided separately, in subsequent sections. Lab Results This section contains the Chemistry/Hematology Results that were resulted 30 days before or 30 daysafter the date of the Encounter. Date/Time Source Result Type Result - Unit Interpretation Reference Range Comment Apr 15, 2024 11:16 AM [facility] CPK Specimen Type: SERUM No comment entered. Ordering Provider: JOHN PAUL DENNISON Report Released Date/Time: Apr 15, 2024 10:55 AM Reporting Lab: [facility] [address] [facility] [address] Performing Lab: [facility] [address] CPK 67 U/L 30-200 Mar 31, 2024 09:16 AM [place] HEMOGLOBIN A1C PANEL Specimen Type: BLOOD Comment: [...] PM Reporting Lab: [facility] [address] [address] Performing Lab: [facility] [address] [address] HEMOGLOBIN A1C 5.2 4.0-5.6 Mar 31, 2024 09:16 AM [place] TSH Specimen Type: SERUM No comment entered. Ordering Provider: GREGG HARMON Report Released Date/Time: Apr 08, 2023 02:27 PM Reporting Lab: [facility] [address] [address] Performing Lab: [facility] [address] TSH 2.67 u[IU]/mL 0.35-5.00 Mar 31, 2024 09:16 AM [place] LIPID PANEL FASTING Specimen Type: SERUM No comment entered. Ordering Provider: GREGG HARMON Report Released Date/Time: Apr 08, 2023 02:27 PM Reporting Lab: [facility] [address] [address] Performing Lab: [facility] [address] [address] CHOLESTEROL 164 mg/dL TRIGLYCERIDE 102 mg/dL 0-150 LDL calculated 101 mg/dL 0-129 CHOL/HDL 3.8 HDL CHOLESTEROL 43 mg/dL 40-60 Mar 31, 2024 09:16 AM [place] BASIC METABOLIC PANEL (fasting) Specime n Type: SERUM No comment entered. Ordering Provider: GREGG HARMON Report Released Date/Time: Apr 08, 2023 02:27 PM Reporting Lab: [facility] [address] [facility] [address] Performing Lab: [address] [address] U[place]A NITROGEN 20 mg/dL 7-25 GLUCOSE 100 mg/dL 65-100 SODIUM 140 mmol/L 135-145 POTASSIUM 4.2 mmol/L 3.5-5.0 CHLORIDE 109 mmol/L 100-110 CO2 23 meq/L 20-30 CREATININE, Serum 0.96 mg/dL 0.50-1.40 eGFR(CKD-EPI 2020) 86 mL/min >60 Mar 31, 2024 09:16 AM [place] LIVER FUNCTION Specimen Type: SERUM No comment entered. Ordering Provider: GREGG HARMON Report Released Date/Time: Apr 08, 2023 02:27 PM Reporting Lab: [facility] [address] [facility] [address] Performing Lab: [address] [address] PROTEIN,TOTAL 6.0 g/dL 6.0-8.3 ALBUMIN 3.5 g/dL 3.5-5.0 ALKALINE PHOSPHATASE 70 U/L 40-150 AST 14 U/L 5-34 ALT 20 U/L BILIRUBIN, TOTAL 1.0 mg/dL 0.2-1.2 Mar 31, 2024 09:16 AM [place] CBC AND DIFF (AUTO) Specimen Type: BLOOD No comment entered. Ordering Provider: GREGG HARMON Report Released Date/Time: Apr 08, 2023 02:27 PM Reporting Lab: [facility] [address] [facility] [address] Performing Lab: [address] [address] WBC 4.01 10*3/uL L 4.50-11.00 RBC 4.67 [...] 08, 2023 09:12 AM VA-TOBACCO NEVER USED [facility] Tobacco Use History This section includes a history of the smoking, or tobacco-related health factors, that were collected on or before the date of the Encounter. The data comes from the [place] facility where the Encounter took place. Date/Time Smoking Status/Tobacco Use Comment F acility Aug 09, 2021 09:20 AM VA-TOBACCO NEVER USED [facility] Encounter Notes: All associated encounter notes This section contains the clinical notes associated to the Encounter. Date/Time Encounter Note(s) Provider Source Apr 07, 2024 12:00 PM NONVA CONSULT: LOCAL TITLE: COMMUNITY CARE-CONSULT RESULT NOTE STANDARD TITLE: NONVA CONSULT DATE OF NOTE: APR 07, 2024@12:00 ENTRY DATE: MAY 16, 2024@08:36:48 AUTHOR: BRIAN ZAMUDIO EXP COSIGNER: URGENCY: STATUS: COMPLETED VistA Imaging - Scanned Document SCANNED DOCUMENT SIGNATURE NOT REQUIRED Electronically Filed: 05/16/2024 by: BRIAN HERNANDEZ CNTRL W[facility]N [facility]
--- OUTSIDE RECORDS SUMMARY | 2024-06-29 19:07 | XMS_ITS | Encounter Summary ---
Author Name [facility] [place] Address [address] [place] [address] Care Team Providers Care Cash Management Coordinator Name Role Phone ABDIRAHMAN LAKE Primary [...] BASIC FAMIL Y Jun 24, 2009 112 [id number] [phone] ABHILASH GARAY PATIENT ANTHEM BCBS [place] FEP PREFERRED PROVIDER ORGANIZAT ION (PPO) FEP BASIC FAM Jun 24, 2009 112 [id number] [phone] ABHILASH GARAY PATIENT ANTHEM BCBS [place] FEP PREFERRED PROVIDER ORGANIZAT ION (PPO) FEP BASIC FAM Jun 24, 2009 112 [id number] [phone] ABHILASH GARAY PATIENT ANTHEM [place] F[place] PREFERRED PROVIDER ORGANIZAT ION (PPO) FEP BASIC FAM Jun 24, 2009 112 [id number] [phone] ABHILASH GARAY PATIENT [place] FEP PREFERRED PROVIDER ORGANIZAT ION (PPO) FEP BASIC FAM Jun 24, 2009 112 [id number] [phone] RUBI GARAYNETH PATIENT BCBS [place] FEP PREFERRED PROVIDER ORGANIZAT ION (PPO) BASIC FAMIL Y Jun 24, 2009 112 [id number] [phone] RUBI GARAYNETH PATIENT [place] FEP PREFERRED PROVIDER ORGANIZAT ION (PPO) BASIC FAMIL Y Jun 24, 2009 112 [id number] RUBI GARAYNETH PATIENT [place] FEP PREFERRED PROVIDER ORGANIZAT ION (PPO) BASIC FAMIL Y Jun 24, 2009 112 [id number] RUBI GARAYNETH PATIENT [place] FEP DENTAL DENTAL INSURANCE BASIC Jul 12, 2009 DENTAL [id number] [phone] RUBI GARAYNETH PATIENT [place] FEP PREFERRED PROVIDER ORGANIZAT ION (PPO) BASIC FAMIL Y Jun 24, 2009 112 [id number] [phone] ABHILASH GARAY PATIENT [employer] FEP ([id number]) PRESCRIPT ION FEPRX Jun 24, 2009 [id number] [phone] ABHILASH GARAY PATIENT [place] FEP BCBS PRESCRIPT ION CAREM ARK FEPRX PLAN Nov 21, 2021 [id number] ABHILASH GARAY PATIENT [employer] FEPRX PLAN PRESCRIPT ION CAREM ARK FEPRX Nov 21, 2021 [id number] ABHILASH GARAY PATIENT [place]-F EP BCBS PRESCRIPT ION FEP CAREM ARK Nov 21, 2021 [id number] ABHILASH GARAY PATIENT [place]-F EP BCBS PRESCRIPT ION FEP Jun 23, 2010 [id number] RUBI GARAYNETH PATIENT MEDICARE (WNR) MEDICARE (M) PART A Feb 22, 2020 PART A [id number] [phone] ABHILASH GARAY PATIENT MEDICARE (WN) MEDICARE (M) PART A Feb 22, 2020 PART A [id number] [phone] ABHILASH GARAY PATIENT MEDICARE (WNR) MEDICARE (M) PART A Feb 22, 2020 PART A [id number] ABHILASH GARAY PATIENT MEDICARE (WNR) MEDICARE (M) PART A Feb 22, 2020 PART A [id number] ABHILASH GARAY PATIENT MEDICARE (WNR) MEDICARE (M) PART A Feb 22, 2020 PART A [id number] [phone] ABHILASH GARAY PATIENT Selected Encounter This section includes the information on record at [place] for the Encounter. Date/Time Encounter Type Encounter Description Reason Pro vider Source May 14, 2024 09:57 AM Outpatient Encounter ADMIN PAT ACTIVTIES (MASNONCT) IHE Encounter Template Text not used by [place] Plan of Treatment: Future Appointments (+ 6 months) and Future Tests (+/- 45 days) The Plan of Treatment section includes future care activities for the [facility] [place] [facility] This section includes future appointments [...] 17, 2024 01:00 PM [facility], [facility]24 07:30 AM [facility]ULAT[facility] - MEDIC[facility] [place] [facility] Jun 03, 2024 01:00 PM AM[place]ULATORY [place]ICINE [place] [facility] Jun 08, 2024 03:00 PM [facility]ULATORY - REHAB [facility] Jun 11, 2024 08:00 AM [facility] Jun 11, 2024 02:00 PM AMBULATORY - REHAB [facility] Jun 14, 2024 10:30 AM AM[place]ULATORY [place]ICINE [place] [facility] Jun 15, 2024 10:00 AM [facility]ULATORY - REHAB [facility] Jun 22, 2024 11:30 AM AMBULATORY - MEDICINE [facility] [place] [facility] Jun 22, 2024 03:00 PM AMBULATORY - RE[place]AB MEDICIN [place] Jun 24, 2024 01:00 PM AMBULATORY [place]ICINE [place] [facility] Jun 28, 2024 11:00 AM AMBUL[facility]ORY - NONE [facility] [place] [facility] Jul 07, 2024 01:00 PM AM[place]UL[place]ORY - MEDICINE [place] Jul 23, 2024 01:30 PM AMBULATORY - MEDICINE [facility] [facility] Aug 04, 2024 10:00 AM AMBULATORY - MEDICINE [facility] [place] [facility] Aug 25, 2024 10:30 AM AMBULATORY - MEDICINE [facility] [place] [facility] Sep 21, 2024 01:30 PM AMBULATORY - MEDICINE [place] Oct 05, 2024 11:00 AM AMBULATORY - MEDICINE [facility] Active, Pending, and Scheduled Orders This section includes a listing of several types of active, pending, and scheduled orders, including clinic medications orders, diagnostic test orders, procedure orders and consult orders; where the start date of the order is 45 days before the date of the Encounter or 45 days after the date of theEncounter. The data comes from all [place] treatment facilities. Test Date/Time Test Type Test Details Facility Name Apr 08, 2024 12:00 AM Laboratory - Chemistry Order URINALYSIS URINE SP [place] Apr 15, 2024 03:06 PM Consult Order [facility] Cons Server Service Assistant's [facility] Jun 01, 2024 11:54 AM Consult Order [facility] THERAPY Cons Server Service Assistant's Choice [place] Lab Results: +/- 30 days of the encounter This section includes the Chemistry and Hematology Lab Results on record with [place] for the patient. Radiology Reports and Pathology Reports are provided separately, in subsequent sections. Lab Results This section contains the Chemistry/Hematology Results that were resulted 30 days before or 30 daysafter the date of the Encounter. Date/Time Source Result Type Result - Unit Interpretation Reference Range Comment Apr 15, 2024 11:16 AM [facility] CPK Specimen Type: SERUM No comment entered. Ordering Provider: JOHN PAUL DENNISON Report Released Date/Time: Apr 15, 2024 10:55 AM Reporting Lab: [facility] [address] [place] [address] Performing Lab: [facility] [address] [facility] [address] CPK 67 U/L 30-200 Social History: Smoking [...] Facil ity Apr 08, 2023 09:12 AM [place]-TOBACCO NEVER USED [facility] Tobacco Use History This section includes a history of the smoking, or tobacco-related health factors, that were collected on or before the date of the Encounter. The data comes from the [place] facility where the Encounter took place. Date/Time Smoking Status/Tobacco Use Comment F acility Aug 09, 2021 09:20 AM [place]-TOBACCO NEVER USED [facility] Encounter Notes: All associated encounter notes This section contains the clinical notes associated to the Encounter. Date/Time Encounter Note(s) Provider Source May 14, 2024 09:57 AM ADMINISTRATIVE NOTE: LOCAL TITLE: CCC: SCHEDULING ADMINISTRATION STANDARD TITLE: ADMINISTRATIVE NOTE DATE OF NOTE: MAY 14, 2024@09:57:28 ENTRY DATE: MAY 14, 2024@09:57:29 AUTHOR: KASIA GREENBERG COSIGNER: URGENCY: STATUS: COMPLETED CCC: SCHEDULING ADMINISTRATION Has ADDENDA Patient Demographics Patient Name: ABHILASH Fran GARAY Patient Primary Phone: [phone] Patient Primary Address: [address] [place] [address] Patient : 1955 Patient Age: 69 Caller/Recipient Relation to Patient: Self Caller Name: ABHILASH GARAY Administrative Administrative Note Reason: Other Administrative Note Comments: [place] looking to see if an order for compression stockings has been received. [id number] IMPORTANT: This note was created by [facility] staff. Please do not alert the staff member by adding them as a signer for future communications. Alerts are not monitored by this user. /yunior/ KASIA GREENBERG VISN1 CCC AMSA Signed: 05/14/2024 09:57 Receipt Acknowledged By: 05/14/2024 10:37 /yunior/ BREANNA BAKER RN-BC REGISTERED NURSE 05/14/2024 10:58 /es/ EUGENIE SALVADOR LPN Licensed Practical Nurse 05/14/2024 ADDENDUM STATUS: COMPLETED Called [place] and advised that order was sent to PT for fulfillment. [place] reports that he [facility]. /yunior/ BREANNA BAKER RN-BC REGISTERED NURSE Signed: 05/14/2024 10:40 KASIA GREENBERG [place] [facility]
--- OUTSIDE RECORDS SUMMARY | 2024-06-29 19:07 | XMS_ITS | Encounter Summary ---
Author Name [facility] [place] Address [address] [place] [address] Care Team Providers [employer] Artistic Director Name Role Phone ABDIRAHMAN LAKE Primary [...] BASIC FAMIL Y Jun 24, 2009 112 [id number] [phone] ABHILASH GARAY PATIENT ANTHEM BCBS [place] FEP PREFERRED PROVIDER ORGANIZAT ION (PPO) FEP BASIC FAM Jun 24, 2009 112 [id number] [phone] ABHILASH GARAY PATIENT ANTHEM BCBS [place] FEP PREFERRED PROVIDER ORGANIZAT ION (PPO) FEP BASIC FAM Jun 24, 2009 112 [id number] [phone] ABHILASH GARAY PATIENT [place] F[place] PREFERRED PROVIDER ORGANIZAT ION (PPO) FEP BASIC FAM Jun 24, 2009 112 [id number] [phone] ABHILASH GARAY PATIENT [place] F[place] PREFERRED PROVIDER ORGANIZAT ION (PPO) FEP BASIC FAM Jun 24, 2009 112 [id number] [phone] RUBI GARAYNETH PATIENT [place]BS [place] FEP PREFERRED PROVIDER ORGANIZAT ION (PPO) BASIC FAMIL Y Jun 24, 2009 112 [id number] [phone] RUBI GARAYNETH PATIENT [place] FEP PREFERRED PROVIDER ORGANIZAT ION (PPO) BASIC FAMIL Y Jun 24, 2009 [id number] RUBI GARAYNETH PATIENT [place] FEP PREFERRED PROVIDER ORGANIZAT ION (PPO) BASIC FAMIL Y Jun 24, 2009 [id number] RUBI GARAYNETH PATIENT [place] FEP DENTAL DENTAL INSURANCE BASIC Jul 12, 2009 DENTAL [id number] [phone] DEJAHDANIKARUBI ACEVESNETH PATIENT [place] FEP PREFERRED PROVIDER ORGANIZAT ION (PPO) BASIC FAMIL Y Jun 24, 2009 [id number] ABHILASH GARAY PATIENT [employer] FEP ([id number]) PRESCRIPT ION FEPRX Jun 24, 2009 [id number] [phone] ABHILASH GARAY PATIENT [place] FEP BCBS PRESCRIPT ION CAREM ARK FEPRX PLAN Nov 21, 2021 [id number] ABHILASH GARAY PATIENT [employer] FEPRX PLAN PRESCRIPT ION CAREM ARK FEPRX Nov 21, 2021 [id number] ABHILASH GARAY PATIENT [employer]-F EP BCBS PRESCRIPT ION FEP CAREM ARK Nov 21, 2021 [id number] ABHILASH GARAY PATIENT [place]-F EP BCBS PRESCRIPT ION FEP Jun 23, 2010 [id number] RUBI GARAYNETH PATIENT MEDICARE ([facility]) MEDICARE () PART A Feb 22, 2020 PART A [id number] ABHILASH GARAY PATIENT MEDICARE (WNR) MEDICARE (M) PART A Feb 22, 2020 PART A [id number] NV71 [phone] ABHILASH GARAY PATIENT MEDICARE (WNR) MEDICARE (M) PART A Feb 22, 2020 PART A [id number] ABHILASH GARAY PATIENT MEDICARE (WNR) MEDICARE (M) PART A Feb 22, 2020 PART A [id number] ABHILASH GARAY PATIENT MEDICARE (WNR) MEDICARE (M) PART A Feb 22, 2020 PART A [id number] ABHILASH GARAY PATIENT Selected Encounter This section includes the information on record at [place] for the Encounter. Date/Time Encounter Type Encounter Description Reason Pro vider Source May 05, 2024 08:53 AM Outpatient Encounter ADMIN PAT ACTIVTIES (MASNONCT) IHE Encounter Template Text not used by [place] Plan of Treatment: Future Appointments (+ 6 months) and Future Tests (+/- 45 days) The Plan of Treatment section includes future care activities for the patient [facility] [place] [facility] This section includes future appointments and future [...] 17, 2024 01:00 PM [facility] May 28, 2024 07:30 AM AM[facility]ULAT[facility] - MEDICINE [facility] [place] [facility] Jun 03, 2024 01:00 PM AMBULATORY - [place]ICINE [place] [facility] Jun 08, 2024 03:00 PM AMBULATORY - RE[facility]AB [facility]IC[facility] Jun 11, 2024 08:00 AM AM[facility]ULAT[facility] - [facility]IC[facility] Jun 11, 2024 02:00 PM AMBULATORY - REHAB MEDICIN [facility] Jun 14, 2024 10:30 AM AMBULATORY - MEDICINE [place] [facility] Jun 15, 2024 10:00 AM AMBULATORY - REHAB MEDICIN [facility] Jun 22, 2024 11:30 AM AMBULATORY - MEDICINE [facility] [place] [facility] Jun 22, 2024 03:00 PM AMBULATORY - REHAB MEDICIN [place] Jun 24, 2024 01:00 PM AMBULATORY - MEDICINE [place] [facility] Jun 28, 2024 11:00 AM AMBULATORY - NONE [facility] [place] [facility] Jul 07, 2024 01:00 PM AMBULATORY - MEDICINE [place] Jul 23, 2024 01:30 PM AMBULATORY - MEDICINE [facility] [place] [facility] Aug 04, 2024 10:00 AM AMBULATORY - MEDICINE [facility] [place] [facility] Aug 25, 2024 10:30 AM AMBULATORY - MEDICINE [facility] [place] [facility] Sep 21, 2024 01:30 PM AMBULATORY - MEDICINE [place] Oct 05, 2024 11:00 AM AMBULATORY - MEDICINE [facility] Active, Pending, and Scheduled Orders This [...] Laboratory - Chemistry Order URINALYSIS URINE SP [place] Apr 15, 2024 03:06 PM Consult Order [facility] [employer] Analyst's Choice [facility] Jun 01, 2024 11:54 AM Consult Order [facility] TH[facility]APY [employer] Analyst's Choice [place] Lab Results: +/- 30 days of the [...] Range Comment Apr 15, 2024 11:16 AM [facility] CPK Specimen Type: SERUM No comment entered. Ordering Provider: JOHN PAUL DENNISON Report Released Date/Time: Apr 15, 2024 10:55 AM Reporting Lab[facility] [address] [place] [address] Performing Lab: [facility] [address] [facility] [address] CPK 67 U/L 30-200 Social History: Smoking [...] Facil ity Apr 08, 2023 09:12 AM [place]-TOBACCO NEVER USED [facility] Tobacco Use History This section includes a history of the smoking, or tobacco-related health factors, that were collected on or before the date of the Encounter. The data comes from the [place] facility where the Encounter took place. Date/Time Smoking Status/Tobacco Use Comment F acility Aug 09, 2021 09:20 AM [place]-TOBACCO NEVER USED [facility] Encounter Notes: All associated encounter notes This section contains the clinical notes associated to the Encounter. Date/Time Encounter Note(s) Provider Source May 05, 2024 08:53 AM ADMINISTRATIVE NOT E: LOCAL TITLE: CCC: SCHEDULING ADMINISTRATION STANDARD TITLE: ADMINISTRATIVE NOTE DATE OF NOTE: MAY 05, 2024@08:53:38 ENTRY DATE: MAY 05, 2024@08:53:39 AUTHOR: ADILSON YUAN COSIGNER: URGENCY: STATUS: COMPLETED CCC: SCHEDULING ADMINISTRATION Has ADDENDA Patient Demographics Patient Name: ABHILASH GARAY Patient Primary Phone: [phone] Patient Primary Address: [address] [place] [id number] Patient : 1955 Patient Age: 69 Caller/Recipient Relation to Patient: Self Administrative Administrative Note Reason: Other Administrative Note Comments: Patient states, he was sent to a Vascular Doctor by the [place], was given a list of what he needs, which is compression socks, [place], (referral?), to call his phone # on file. IMPORTANT: This note was created by [facility] staff. Please do not alert the staff member by adding them as a signer for future communications. Alerts are not monitored by this user. /yunior/ ADILSON YUAN VISN1 [facility] AMSA Signed: 05/05/2024 08:53 Receipt Acknowledged By: 05/07/2024 14:48 /yunior/ BREANNA BAKER RN-BC REGISTERED NURSE 05/10/2024 07:54 /yunior/ EUGENIE SALVADOR LPN Licensed Practical Nurse 05/07/2024 ADDENDUM STATUS: COMPLETED Called [place] and he reports that he had an order from his vascular provider for compression stockings that he would like to receive through [place]. Author advised [facility] of fax number for [facility] and he is going to contact vascular provider and request they fax order for stockings to [facility] for review. Author advised that will provide order to physical therapy dept after received so he can be measured for appropriate size stockings at time of upcoming [facility] physical therapy appt on 05/17/2024 /yunior/ BREANNA BAKER RN-BC REGISTERED NURSE Signed: 05/07/2024 14:55 ADILSON YUAN [place] [facility]
--- OUTSIDE RECORDS SUMMARY | 2024-06-29 19:07 | XMS_ITS ---
Author Name [facility] Organization [facility] [place] Address [address] [place] [address] Care Team Providers Care Automotive Glass Mechanic Name Role Phone ABDIRAHMAN LAKE Primary [...] BASIC FAMIL Y Jun 24, 2009 112 [id number] [phone] ABHILASH GARAY PATIENT ANTHEM BCBS [place] FEP PREFERRED PROVIDER ORGANIZAT ION (PPO) FEP BASIC FAM Jun 24, 2009 112 [id number] [phone] ABHILASH GARAY PATIENT ANTHEM BCBS [place] FEP PREFERRED PROVIDER ORGANIZAT ION (PPO) FEP BASIC FAM Jun 24, 2009 112 [id number] [phone] ABHILASH GARAY PATIENT ANTHEM BCBS [place] FEP PREFERRED PROVIDER ORGANIZAT ION (PPO) FEP BASIC FAM Jun 24, 2009 112 [id number] [phone] ABHILASH GARAY PATIENT BCBS [place] FEP PREFERRED PROVIDER ORGANIZAT ION (PPO) FEP BASIC FAM Jun 24, 2009 112 [id number] [phone] ABHILASH GARAY PATIENT BCBS [place] FEP PREFERRED PROVIDER ORGANIZAT ION (PPO) BASIC FAMIL Y Jun 24, 2009 [id number] ABHILASH GARAY PATIENT [place] PREFERRED PROVIDER ORGANIZAT ION (PPO) BASIC FAMIL Y Jun 24, 2009 [id number] ABHILASH GARAY PATIENT [place] FEP PREFERRED PROVIDER ORGANIZAT ION (PPO) BASIC FAMIL Y Jun 24, 2009 [id number] ABHILASH GARAY PATIENT [place] FEP DENTAL DENTAL INSURANCE BASIC Jul 12, 2009 DENTAL [id number] [phone] ABHILASH GARAY PATIENT [place] FEP PREFERRED PROVIDER ORGANIZAT ION (PPO) BASIC FAMIL Y Jun 24, 2009 112 [id number] ABHILASH GARAY PATIENT [place] FEP ([id number]) PRESCRIPT ION FEPRX Jun 24, 2009 [id number] [phone] ABHILASH GARAY PATIENT [place] FEP BCBS PRESCRIPT ION CAREM ARK FEPRX PLAN Nov 21, 2021 [id number] ABHILASH GARAY PATIENT [place] FEPRX PLAN PRESCRIPT ION CAREM ARK FEPRX Nov 21, 2021 [id number] ABHILASH GARAY PATIENT [place]-F EP BCBS PRESCRIPT ION FEP CAREM ARK Nov 21, 2021 [id number] ABHILASH GARAY PATIENT [place]-F EP BCBS PRESCRIPT ION FEP Jun 23, 2010 [id number] ABHILASH GARAY PATIENT MEDICARE (WN) MEDICARE () PART A Feb 22, 2020 PART A [id number] ABHILASH GARAY PATIENT MEDICARE ([facility]) MEDICARE () PART A Feb 22, 2020 PART A [id number] [phone] ABHILASH GARAY PATIENT MEDICARE (WNR) MEDICARE (M) PART A Feb 22, 2020 PART A [id number] [phone] ABHILASH GARAY PATIENT MEDICARE (WNR) MEDICARE (M) PART A Feb 22, 2020 PART A [id number] ABHILASH GARAY PATIENT MEDICARE (WNR) MEDICARE (M) PART A Feb 22, 2020 PART A [id number] ABHILASH GARAY PATIENT Selected Encounter This section includes the information on record at NH for the Encounter. Date/Time Encounter Type Encounter Description Reason Pro vider Source Apr 23, 2024 12:00 AM Outpatient Encounter COMMUNITY CARE CONSULT IHE Encounter Template Text not used by NH Plan of Treatment: Future Appointments (+ 6 months) and Future Tests (+/- 45 days) The Plan of Treatment section includes [facility] This section includes future [...] 03, 2024 01:00 PM AMBULATORY - MEDICINE [place] [facility] May 17, 2024 01:00 PM [facility] May 28, 2024 07:30 AM AMBULATORY - MEDICINE [place] [facility] [place] [facility] Jun 03, 2024 01:00 PM AMBULATORY - MEDICINE [place] [facility] [place] [facility] Jun 08, 2024 03:00 PM AMBULATORY - REHAB MED[facility]IN [facility] Jun 11, 2024 08:00 AM AMBULATORY - MEDICINE [facility] Jun 11, 2024 02:00 PM AMBULATORY - REHAB MEDICIN [facility] Jun 14, 2024 10:30 AM AMBULATORY - MEDICINE [place] [facility] [place] [facility] Jun 15, 2024 10:00 AM [facility] Jun 22, 2024 11:30 AM AMBULATORY - MEDICINE [place] [facility] [place] [facility] Jun 22, 2024 03:00 PM AMBULATORY - RE[place]AB MEDICIN [place] Jun 24, 2024 01:00 PM AMBULATORY - MEDICINE [place] [facility] [place] [facility] Jun 28, 2024 11:00 AM AMBULATORY - NONE [place] [facility] [place] [facility] Jul 07, 2024 01:00 PM AMBULATORY - MEDICINE [place] Jul 23, 2024 01:30 PM AMBULATORY - MEDICINE [place] [facility] Aug 04, 2024 10:00 AM AMBULATORY - MEDICINE [place] [facility] Aug 25, 2024 10:30 AM AMBULATORY - MEDICINE [place] [facility] [place] [facility] Sep 21, 2024 01:30 PM AMBULATORY - MEDICINE [place] Oct 05, 2024 11:00 AM [facility]ULATORY - MEDICINE [facility] Active, Pending, and Scheduled Orders This section includes a listing of several types of active, pending, and scheduled orders, including clinic medications orders, diagnostic test orders, procedure orders and consult orders; where the start date of the order is 45 days before the date of the Encounter or 45 days after the date of theEncounter. The data comes from all [place] treatment facilities. Test Date/Time Test Type Test Details Facility Name Apr 08, 2024 12:00 AM Laboratory - Chemistry Order URINALYSIS URINE SP [place] Apr 15, 2024 03:06 PM Consult Order COMMUNITY [facility]-NEUROLOGY Cons Mft's Choice [place] [facility] [place] [facility] Jun 01, 2024 11:54 AM Consult Order COMMUNITY [facility] MASSAGE THERAPY Cons Mft's Choice [place] Lab Results: +/- 30 days of the encounter This section includes the Chemistry and Hematology Lab Results on record with NH for the patient. Radiology Reports and Pathology Reports are provided separately, in subsequent sections. Lab Results This section contains the Chemistry/Hematology Results that were resulted 30 days before or 30 daysafter the date of the Encounter. Date/Time Source Result Type Result - Unit Interpretation Reference Range Comment Apr 15, 2024 11:16 AM [facility] Specimen Type: SERUM No comment entered. Ordering Provider: JOHN PAUL DENNISON Report Released Date/Time: Apr 15, 2024 10:55 AM Reporting Lab[facility] [address] [address] Performing Lab: [facility] [address] CPK 67 U/L 30-200 Mar 31, 2024 09:16 AM [place] HEMOGLOBIN A1C PANEL Specimen Type: BLOOD Comment: [...] Apr 08, 2023 02:27 PM Reporting Lab: [address] [address] Performing Lab: [address] [address] HEMOGLOBIN A1C 5.2 4.0-5.6 Mar 31, 2024 09:16 AM [place] TSH Specimen Type: SERUM No comment entered. Ordering Provider: GREGG HARMON Report Released Date/Time: Apr 08, 2023 02:27 PM Reporting Lab: [facility] [address] [address] Performing Lab: [address] [address] TSH 2.67 u[IU]/mL 0.35-5.00 Mar 31, 2024 09:16 AM [place] LIPID PANEL FASTING Specimen Type: SERUM No comment entered. Ordering Provider: GREGG HARMON Report Released Date/Time: Apr 08, 2023 02:27 PM Reporting Lab: [facility] [address] [address] Performing Lab: [facility] [address] [address] CHOLESTEROL 164 mg/dL TRIGLYCERIDE 102 mg/dL 0-150 LDL calculated 101 mg/dL 0-129 CHOL/HDL 3.8 HDL CHOLESTEROL 43 mg/dL 40-60 Mar 31, 2024 09:16 AM [place] BASIC METABOLIC PANEL (fasting) Specime n Type: SERUM No comment entered. Ordering Provider: GREGG HARMON Report Released Date/Time: Apr 08, 2023 02:27 PM Reporting Lab: [address] [address] Performing Lab: [address] [address] UREA NITROGEN 20 mg/dL 7-25 GLUCOSE 100 mg/dL 65-100 SODIUM 140 mmol/L 135-145 POTASSIUM 4.2 mmol/L 3.5-5.0 CHLORIDE 109 mmol/L 100-110 CO2 23 meq/L 20-30 CREATININE, Serum 0.96 mg/dL 0.50-1.40 eGFR(CKD-EPI 2020) 86 mL/min >60 Mar 31, 2024 09:16 AM [place] LIVER FUNCTION Specimen Type: SERUM No comment entered. Ordering Provider: GREGG HARMON Report Released Date/Time: Apr 08, 2023 02:27 PM Reporting Lab: [address] [address] Performing Lab: [address] [address] PROTEIN,TOTAL 6.0 g/dL 6.0-8.3 ALBUMIN 3.5 g/dL 3.5-5.0 ALKALINE PHOSPHATASE 70 U/L 40-150 AST 14 U/L 5-34 ALT 20 U/L BILIRUBIN, TOTAL 1.0 mg/dL 0.2-1.2 Mar 31, 2024 09:16 AM [place] CBC AND DIFF (AUTO) Specimen Type: BLOOD No comment entered. Ordering Provider: GREGG HARMON Report Released Date/Time: Apr 08, 2023 02:27 PM Reporting Lab: [address] [address] Performing Lab: [address] [address] WBC 4.01 10*3/uL L 4.50-11.00 RBC 4.67 [...] 08, 2023 09:12 AM [place]-TOBACCO NEVER USED [facility] Tobacco Use History This section includes a history of the smoking, or tobacco-related health factors, that were collected on or before the date of the Encounter. The data comes from the [place] facility where the Encounter took place. Date/Time Smoking Status/Tobacco Use Comment F darvin Aug 09, 2021 09:20 AM [place]-TOBACCO NEVER USED [facility] Encounter Notes: All associated encounter notes This section contains the clinical notes associated to the Encounter. Date/Time Encounter Note(s) Provider Source Apr 23, 2024 12:00 AM NONVA CONSULT: LOCAL TITLE: COMMUNITY CARE-CONSULT RESULT NOTE STANDARD TITLE: NONVA CONSULT DATE OF NOTE: APR 23, 2024 ENTRY DATE: MAY 15, 2024@16:34:37 AUTHOR: IFEANYI PARKER COSIGNER: URGENCY: STATUS: COMPLETED VistA Imaging - Scanned Document SCANNED DOCUMENT SIGNATURE NOT REQUIRED Electronically Filed: 05/15/2024 by: IFEANYI BOYLE CN[facility]L [facility]
--- OUTSIDE RECORDS SUMMARY | 2024-06-29 19:07 | XMS_ITS | Encounter Summary ---
Author Name [facility] [place] [facility] [place] [facility] [place] Address [address] [place] [address] Care Team Providers Care Custom Miller Name Role Phone ABDIRAHMAN LAKE Primary Care [...] BASIC FAMIL Y Jun 24, 2009 [id number] [phone] ABHILASH GARAY PATIENT ANTHEM BCBS [place] FEP PREFERRED PROVIDER ORGANIZAT ION (PPO) FEP BASIC FAM Jun 24, 2009 112 [id number] [phone] ABHILASH GARAY PATIENT ANTHEM BCBS [place] FEP PREFERRED PROVIDER ORGANIZAT ION (PPO) FEP BASIC FAM Jun 24, 2009 112 [id number] [phone] ABHILASH GARAY PATIENT ANTHEM [place] PREFERRED PROVIDER ORGANIZAT ION (PPO) FEP BASIC FAM Jun 24, 2009 112 [id number] [phone] ABHILASH GARAY PATIENT [place] PREFERRED PROVIDER ORGANIZAT ION (PPO) FEP BASIC FAM Jun 24, 2009 112 [id number] [phone] RUBI GARAYNETH PATIENT BCBS [place] FEP PREFERRED PROVIDER ORGANIZAT ION (PPO) BASIC FAMIL Y Jun 24, 2009 112 [id number] [phone] ABHILASH GARAY PATIENT [place] F[place] PREFERRED PROVIDER ORGANIZAT ION (PPO) BASIC FAMIL Y Jun 24, 2009 [id number] ABHILASH GARAY PATIENT [place] FEP PREFERRED PROVIDER ORGANIZAT ION (PPO) BASIC FAMIL Y Jun 24, 2009 [id number] ABHILASH GARAY PATIENT [place] FEP DENTAL DENTAL INSURANCE BASIC Jul 12, 2009 DENTAL [id number] ABHILASH GARAY PATIENT [place] FEP PREFERRED PROVIDER ORGANIZAT ION (PPO) BASIC FAMIL Y Jun 24, 2009 [id number] [phone] ABHILASH GARAY PATIENT [employer] FEP ([id number]) PRESCRIPT ION FEPRX Jun 24, 2009 [id number] [phone] ABHILASH GARAY PATIENT [place] FEP BCBS PRESCRIPT ION CAREM ARK FEPRX PLAN Nov 21, 2021 [id number] ABHILASH GARAY PATIENT [place] FEPRX PLAN PRESCRIPT ION CAREM ARK FEPRX Nov 21, 2021 [id number] ABHILASH GARAY PATIENT [place]-F EP BCBS PRESCRIPT ION FEP CAREM ARK Nov 21, 2021 [id number] ABHILASH GARAY PATIENT [place]-F EP BCBS PRESCRIPT ION FEP Jun 23, 2010 [id number] DEJAHDANIKARUBI ACEVESNETH PATIENT MEDICARE (WNR) MEDICARE (M) PART A Feb 22, 2020 PART A [id number] RUBI GARAYNETH PATIENT MEDICARE (WN) MEDICARE (M) PART A Feb 22, 2020 PART A [id number] ABHILASH GARAY PATIENT MEDICARE (WNR) MEDICARE (M) PART A Feb 22, 2020 PART A [id number] ABHILASH GARAY PATIENT MEDICARE (WNR) MEDICARE (M) PART A Feb 22, 2020 PART A [id number] ABHILASH GARAY PATIENT MEDICARE (WNR) MEDICARE (M) PART A Feb 22, 2020 PART A [id number] [phone] ABHILASH GARAY PATIENT Selected Encounter This section includes the information on record at [place] for the Encounter. Date/Time Encounter Type Encounter Description Reason Provider Source Apr 27, 2024 02:20 PM COLLJ & INTERPJ DATA EA 30 D TELEPHONE/MEDICINE ICD-10-CM G47.39 Other sleep apnea JANIE CARPIO Fran Encounter Template Text not used by [place] Assessments - Encounter Diagnoses This section includes the primary and secondary diagnoses documented for the Encounter. Date/Time Primary/Secondary Diagnosis Diagnosis Name Provider Source Apr 27, 2024 02:20 PM PRIMARY Other sleep apnea JANIE CARPIO [place] Plan of Treatment: Future Appointments (+ 6 [...] 03, 2024 01:00 PM AMBULATORY - MEDICINE [place] [facility] May 17, 2024 01:00 PM AMBULATORY - REHAB [facility] May 28, 2024 07:30 AM AMBULATORY - MEDICINE [place] [facility] Jun 03, 2024 01:00 PM AMBULATORY - MEDICINE [place] C [place] [facility] Jun 08, 2024 03:00 PM AMBULATORY - REHAB [facility] Jun 11, 2024 08:00 AM AMBULATORY - MEDICINE [facility] Jun 11, 2024 02:00 PM AMBULATORY - REHAB MEDICIN [place] Jun 14, 2024 10:30 AM AMBULATORY - MEDICINE [place] [facility] Jun 15, 2024 10:00 AM AMBULATORY - REHAB MEDICIN E [place] Jun 22, 2024 11:30 AM AMBULATORY - MEDICINE [place] [facility] Jun 22, 2024 03:00 PM AMBULATORY - REHAB MEDICIN E [place] Jun 24, 2024 01:00 PM AMBULATORY - MEDICINE [place] [facility] Jun 28, 2024 11:00 AM AMBULATORY - NONE [place] [facility] [place] [facility] Jul 07, 2024 01:00 PM [facility]ORY - [facility]ICINE [facility] Jul 23, 2024 01:30 PM AMBULATORY - MEDICINE [place] [facility] Aug 04, 2024 10:00 AM AMBULATORY - MEDICINE [place] [facility] Aug 25, 2024 10:30 AM AMBULATORY - MEDICINE [place] [facility] [place] [place] [facility] Sep 21, 2024 01:30 PM AMBULATORY - MEDICINE [place] Oct 05, 2024 11:00 AM [place]ORY [place]ICINE [place] [...] of theEncounter. The data comes from all [place] treatment facilities. Test Date/Time Test Type Test Details Facility Name Apr 08, 2024 12:00 AM Laboratory - Chemistry Order URINALYSIS URINE SP [place] Apr 15, 2024 03:06 PM Consult Order COMMUNITY CARE-NEUROLOGY Cons [facility] [place] [facility] Jun 01, 2024 11:54 AM Consult Order COMMUNITY [facility] MASSAGE THERAPY Cons [facility] [place] Lab Results: +/- 30 days of the [...] Range Comment Apr 15, 2024 11:16 AM [facility] CPK Specimen Type: SERUM No comment entered. Ordering Provider: JOHN PAUL DENNISON Report Released Date/Time: Apr 15, 2024 10:55 AM Reporting Lab: [facility] [address] [facility] [address] Performing Lab: [facility] [address] [address] CPK 67 U/L 30-200 Mar 31, 2024 09:16 AM [place] HEMOGLOBIN A1C PANEL Specimen Type: BLOOD Comment: [...] Apr 08, 2023 02:27 PM Reporting Lab: [facility] [address] [facility] [address] Performing Lab: [facility] [address] [facility] [address] HEMOGLOBIN A1C 5.2 4.0-5.6 Mar 31, 2024 09:16 AM [place] BASIC METABOLIC PANEL (fasting) Specime n Type: SERUM No comment entered. Ordering Provider: GREGG HARMON Report Released Date/Time: Apr 08, 2023 02:27 PM Reporting Lab: [facility] [address] [facility] [address] Performing Lab: [facility] [address] [address] UREA NITROGEN 20 mg/dL 7-25 GLUCOSE 100 mg/dL 65-100 SODIUM 140 mmol/L 135-145 POTASSIUM 4.2 mmol/L 3.5-5.0 CHLORIDE 109 mmol/L 100-110 CO2 23 meq/L 20-30 CREATININE, Serum 0.96 mg/dL 0.50-1.40 eGFR(CKD-EPI 2020) 86 mL/min >60 Mar 31, 2024 09:16 AM [place] LIPID PANEL FASTING Specimen Type: SERUM No comment entered. Ordering Provider: GREGG HARMON Report Released Date/Time: Apr 08, 2023 02:27 PM Reporting Lab: [address] [address] Performing Lab: [address] [address] CHOLESTEROL 164 mg/dL TRIGLYCERIDE 102 mg/dL 0-150 LDL calculated 101 mg/dL 0-129 CHOL/HDL 3.8 HDL CHOLESTEROL 43 mg/dL 40-60 Mar 31, 2024 09:16 AM [place] LIVER FUNCTION Specimen Type: SERUM No comment entered. Ordering Provider: GREGG HARMON Report Released Date/Time: Apr 08, 2023 02:27 PM Reporting Lab: [address] [address] Performing Lab: [address] [address] PROTEIN,TOTAL 6.0 g/dL 6.0-8.3 ALBUMIN 3.5 g/dL 3.5-5.0 ALKALINE PHOSPHATASE 70 U/L 40-150 AST 14 U/L 5-34 ALT 20 U/L BILIRUBIN, TOTAL 1.0 mg/dL 0.2-1.2 Mar 31, 2024 09:16 AM [place] TSH Specimen Type: SERUM No comment entered. Ordering Provider: GREGG HARMON Report Released Date/Time: Apr 08, 2023 02:27 PM Reporting Lab: [address] [address] Performing Lab: [address] [address] TSH 2.67 u[IU]/mL 0.35-5.00 Mar 31, 2024 09:16 AM [place] CBC AND DIFF (AUTO) Specimen Type: BLOOD No comment entered. Ordering Provider: GREGG HARMON Report Released Date/Time: Apr 08, 2023 02:27 PM Reporting Lab: [address] [address] [facility]: [facility] [address] [facility] [address] WBC 4.01 10*3/uL L 4.50-11.00 RBC 4.67 [...] Current Smoking Status Comment Facil ity Apr 06, 2024 10:30 AM [place]-TOBACCO NEVER USED [place] Tobacco Use History This section includes a history of the smoking, or tobacco-related health factors, that were collected on or before the date of the Encounter. The data comes from the [place] facility where the Encounter took place. Date/Time Smoking Status/Tobacco Use Comment F acility Aug 18, 2020 10:00 AM [place]-TOBACCO NEVER USED [place] Dec 15, 2018 12:14 PM [place]-TOBACCO NEVER USED [place] Jun 11, 2017 04:15 PM LIFETIME NON-TOBACCO USER [place] Jan 01, 2016 11:12 AM LIFETIME NON-TOBACCO USER [place] Jan 16, 2005 08:54 AM LIFETIME NON-SMOKER [place] Nov 29, 2003 08:05 AM LIFETIME NON-SMOKER [place] Jan 07, 2001 08:33 AM LIFETIME NON-SMOKER [place] Encounter Notes: All associated encounter notes This section contains the clinical notes associated to the Encounter. Date/Time Encounter Note(s) Provider Source Apr 27, 2024 02:20 PM SLEEP MEDICINE NOT E: LOCAL TITLE: CPAP CLINIC NOTE STANDARD TITLE: SLEEP MEDICINE NOTE DATE OF NOTE: APR 27, 2024@14:20 ENTRY DATE: APR 27, 2024@14:20:57 AUTHOR: JANIE CARPIO EXP COSIGNER: URGENCY: STATUS: COMPLETED Telephone Coding and Documentation: Diagnosis: Sleep Apnea Time spent with Patient via telephone: 10 minutes. [place] contacted Respiratory with concerns he is having some episodes. We reviewed his cpap data which includes an 4.9 which is acceptable unless he feels he is no longer getting restless sleep. He is happy with the quality of sleep he is getting he just noticed the numbers are little higher than usual. [place] is happy with the F20 medium FFM and requested cushions and hose - ordered from [employer]. [employer] Patient APAP compliance data reviewed via the [employer] program for the last 30 days. SETTINGS: Apap 5 - [id number] TOTAL DAYS USED 29 DAYS USED > 4hrs 29 AVG USAGE 9:30 hours AVG PRESSURE [id number] LEAK 6 AHI: 4.9 Central 1.9 /es/ JANIE CARPIO CRT RESPIRATORY THERAPIST Signed: 04/27/2024 14:30 JANIE CARPIO
--- OUTSIDE RECORDS SUMMARY | 2024-06-29 19:07 | XMS_ITS | Encounter Summary ---
Author Name [facility] [place] Address [address] [place] [address] Care Team Providers Care Hobber Name Role Phone ABDIRAHMAN LAKE Primary Care [...] BASIC FAMIL Y Jun 24, 2009 112 [id number] [phone] ABHILASH GARAY PATIENT ANTHEM BCBS [place] FEP PREFERRED PROVIDER ORGANIZAT ION (PPO) FEP BASIC FAM Jun 24, 2009 112 [id number] [phone] ABHILASH GARAY PATIENT ANTHEM BCBS [place] F[place] PREFERRED PROVIDER ORGANIZAT ION (PPO) FEP BASIC FAM Jun 24, 2009 112 [id number] [phone] ABHILASH GARAY PATIENT AN[place] F[place] PREFERRED PROVIDER ORGANIZAT ION (PPO) FEP BASIC FAM Jun 24, 2009 112 [id number] [phone] ABHILASH GARAY PATIENT [place] F[place] PREFERRED PROVIDER ORGANIZAT ION (PPO) FEP BASIC FAM Jun 24, 2009 112 [id number] [phone] RUBI GARAYNETH PATIENT BCBS [place] FEP PREFERRED PROVIDER ORGANIZAT ION (PPO) BASIC FAMIL Y Jun 24, 2009 [id number] RUBI GARAYNETH PATIENT [place] PREFERRED PROVIDER ORGANIZAT ION (PPO) BASIC FAMIL Y Jun 24, 2009 [id number] RUBI GARAYNETH PATIENT [place] FEP PREFERRED PROVIDER ORGANIZAT ION (PPO) BASIC FAMIL Y Jun 24, 2009 112 [id number] [phone] RUBI GARAYNETH PATIENT [place] FEP DENTAL DENTAL INSURANCE BASIC Jul 12, 2009 DENTAL [id number] DEJAHDANIKARUBI ACEVESNETH PATIENT [place] FEP PREFERRED PROVIDER ORGANIZAT ION (PPO) BASIC FAMIL Y Jun 24, 2009 [id number] ABHILASH GARAY PATIENT [place] FEP ([id number]) PRESCRIPT ION FEPRX Jun 24, 2009 [id number] [phone] ABHILASH GARAY PATIENT [place] FEP BCBS PRESCRIPT ION CAREM ARK FEPRX PLAN Nov 21, 2021 [id number] ABHILASH GARAY PATIENT [place] FEPRX PLAN PRESCRIPT ION CAREM ARK FEPRX Nov 21, 2021 [id number] ABHILASH GARAY PATIENT [place]ARK-F EP BCBS PRESCRIPT ION FEP CAREM ARK Nov 21, 2021 [id number] ABHILASH GARAY PATIENT [place]-F EP BCBS PRESCRIPT ION FEP Jun 23, 2010 [id number] RUBI GARAYNETH PATIENT MEDICARE ([facility]) MEDICARE () PART A Feb 22, 2020 PART A [id number] [phone] ABHILASH GARAY PATIENT MEDICARE (WNR) MEDICARE (M) PART A Feb 22, 2020 PART A [id number] ABHILASH GARAY PATIENT MEDICARE (WNR) MEDICARE (M) PART A Feb 22, 2020 PART A [id number] ABHILASH GARAY PATIENT MEDICARE (WNR) MEDICARE (M) PART A Feb 22, 2020 PART A [id number] ABHILASH GARAY PATIENT MEDICARE (WNR) MEDICARE (M) PART A Feb 22, 2020 PART A [id number] ABHILASH GARAY PATIENT Selected Encounter This section includes the information on record at [place] for the Encounter. Date/Time Encounter Type Encounter Description Reason Pro vider Source May 10, 2024 11:29 AM Outpatient Encounter ADMIN PAT ACTIVTIES (MASNONCT) IHE Encounter Template Text not used by [place] Plan of Treatment: Future Appointments (+ 6 months) and Future Tests (+/- 45 days) The Plan of Treatment section includes future care activities for the [facility] [place] [facility]. This section includes future appointments and [...] 17, 2024 01:00 [facility], [facility] 07[facility]30 AM [facility] [place] [facility] Jun 03, 2024 01:00 PM AM[place]ULATORY [place]ICINE [place] [facility] Jun 08, 2024 03:00 PM AMBULATORY - [facility]IN [facility] Jun 11, 2024 08:00 AM [facility] Jun 11, 2024 02:00 PM AMBULATORY - [facility]AB [facility] Jun 14, 2024 10:30 AM AMBULATORY - [place]ICINE [place] [facility] Jun 15, 2024 10:00 AM AMBULATORY - REHAB [facility]ICIN [facility] Jun 22, 2024 11:30 AM AMBULATORY - MEDICINE [facility] [place] [facility] Jun 22, 2024 03:00 PM AMBULATORY - [facility]AB MEDICIN [facility] [place] Jun 24, 2024 01:00 PM AMBULATORY - MEDICINE [place] [facility] Jun 28, 2024 11:00 AM AMBULATORY - NONE [facility] [place] [facility] Jul 07, 2024 01:00 PM AMBULATORY - MEDICINE [place] Jul 23, 2024 01:30 PM AMBULATORY - MEDICINE [place] [facility] Aug 04, 2024 10:00 AM AMBULATORY - MEDICINE [place] [facility] [place] [facility] Aug 25, 2024 10:30 AM AMBULATORY - MEDICINE [place] [facility] [place] [facility] Sep 21, 2024 01:30 PM AMBULATORY - MEDICINE [place] Oct 05, 2024 11:00 AM AMBULATORY - MEDICINE [facility] Active, Pending, and Scheduled Orders [...] Laboratory - Chemistry Order URINALYSIS URINE [facility] [place] Apr 15, 2024 03:06 PM Consult Order [facility]-NEUROLOGY Cons Senior Sales Operations Analy[facility] Jun 01, 2024 11:54 AM Consult Order [facility] MASSAGE THERAPY Cons Senior Sales Operations Analyst's Choice [place] Lab Results: +/- 30 days of the [...] Range Comment Apr 15, 2024 11:16 AM [facility] CPK Specimen Type: SERUM No comment entered. Ordering Provider: JOHN PAUL DENNISON Report Released Date/Time: Apr 15, 2024 10:55 AM Reporting Lab[facility] [address] [place] [address] Performing Lab: [facility] [address] [facility] [address] CPK 67 U/L 30-200 Social History: Smoking [...] 08, 2023 09:12 AM [place]-TOBACCO NEVER USED [facility] Tobacco Use History This section includes a history of the smoking, or tobacco-related health factors, that were collected on or before the date of the Encounter. The data comes from the [place] facility where the Encounter took place. Date/Time Smoking Status/Tobacco Use Comment F acility Aug 09, 2021 09:20 AM [place]-TOBACCO NEVER USED [facility] Encounter Notes: All associated encounter notes This section contains the clinical notes associated to the Encounter. Date/Time Encounter Note(s) Provider Source May 10, 2024 11:29 AM ADMINISTRATIVE NOTE: LOCAL TITLE: CCC: SCHEDULING ADMINISTRATION STANDARD TITLE: ADMINISTRATIVE NOTE DATE OF NOTE: MAY 10, 2024@11:29:24 ENTRY DATE: MAY 10, 2024@11:29:24 AUTHOR: KASIA GREENBERG COSIGNER: URGENCY: STATUS: COMPLETED CCC: SCHEDULING ADMINISTRATION Has ADDENDA Patient Demographics Patient Name: ABHILASH GARAY Patient Primary Phone: [phone] Patient Primary Address: [address] [place] [id number] Patient : 1955 Patient Age: 69 Caller/Recipient Relation to Patient: Self Administrative Administrative Note Reason: Paperwork Request Administrative Note Comments: Mcgee wants to know if there was a fax received for him to get compression stockings, please call [phone] IMPORTANT: This note was created by [facility] Clinical Contact Center staff. Please do not alert the staff member by adding them as a signer for future communications. Alerts are not monitored by this user. /yunior/ KASIA GREENBERG VISN1 CCC AMSA Signed: 05/10/2024 11:29 Receipt Acknowledged By: 05/13/2024 12:32 /es/ STEF BAKERN RN-BC REGISTERED NURSE 05/12/2024 09:39 /yunior/ EUGENIE SALVADOR LPN Licensed Practical Nurse 05/12/2024 ADDENDUM STATUS: COMPLETED Please read addendum 05/07/24 /yunior/ EUGENIE SALVADOR LPN Licensed Practical Nurse Signed: 05/12/2024 09:40 K[facility] GREENBERG [facility]
--- OUTSIDE RECORDS SUMMARY | 2024-06-29 19:07 | XMS_ITS ---
Author Name [facility] [place] Address [address] [place] [address] Care Team Providers Care Student Success Coach Name Role Phone ABDIRAHMAN LAKE Primary Care [...] BASIC FAMIL Y Jun 24, 2009 [id number] [phone] ABHILASH GARAY PATIENT ANTHEM BCBS [place] F[place] PREFERRED PROVIDER ORGANIZAT ION (PPO) FEP BASIC FAM Jun 24, 2009 112 [id number] [phone] ABHILASH GARAY PATIENT ANTHEM [place]BS [place] F[place] PREFERRED PROVIDER ORGANIZAT ION (PPO) FEP BASIC FAM Jun 24, 2009 112 [id number] [phone] ABHILASH GARAY PATIENT [place] PREFERRED PROVIDER ORGANIZAT ION (PPO) FEP BASIC FAM Jun 24, 2009 112 [id number] [phone] ABHILASH GARAY PATIENT [place] PREFERRED PROVIDER ORGANIZAT ION (PPO) FEP BASIC FAM Jun 24, 2009 112 [id number] [phone] ABHILASH GARAY PATIENT [place]BS [place] FEP PREFERRED PROVIDER ORGANIZAT ION (PPO) BASIC FAMIL Y Jun 24, 2009 [id number] ABHILASH GARAY PATIENT [place] F[place] PREFERRED PROVIDER ORGANIZAT ION (PPO) BASIC FAMIL Y Jun 24, 2009 112 [id number] [phone] ABHILASH GARAY PATIENT [place] FEP PREFERRED PROVIDER ORGANIZAT ION (PPO) BASIC FAMIL Y Jun 24, 2009 [id number] ABHILASH GARAY PATIENT [place] F[place] DENTAL DENTAL INSURANCE BASIC Jul 12, 2009 DENTAL [id number] ABHILASH GARAY PATIENT [place] FEP PREFERRED PROVIDER ORGANIZAT ION (PPO) BASIC FAMIL Y Jun 24, 2009 [id number] ABHILASH GARAY PATIENT [employer] FEP ([id number]) PRESCRIPT ION FEPRX Jun 24, 2009 [id number] [phone] ABHILASH GARAY PATIENT [place] FEP BCBS PRESCRIPT ION CAREM ARK FEPRX PLAN Nov 21, 2021 [id number] ABHILASH GARAY PATIENT [place] FEPRX PLAN PRESCRIPT ION CAREM ARK FEPRX Nov 21, 2021 [id number] ABHILASH GARAY PATIENT [place]-F EP BCBS PRESCRIPT ION FEP CAREM ARK Nov 21, 2021 [id number] ABHILASH GARAY PATIENT [place]-F EP BCBS PRESCRIPT ION FEP Jun 23, 2010 [id number] ABHILASH GARAY PATIENT MEDICARE ([place]) MEDICARE () PART A Feb 22, 2020 PART A [id number] ABHILASH GARAY PATIENT MEDICARE ([facility]) MEDICARE () PART A Feb 22, 2020 PART A [id number] ABHILASH GARAY PATIENT MEDICARE (WNR) MEDICARE (M) PART A Feb 22, 2020 PART A [id number] ABHILASH GARAY PATIENT MEDICARE (WNR) MEDICARE (M) PART A Feb 22, 2020 PART A [id number] ABHILASH GARAY PATIENT MEDICARE (WNR) MEDICARE (M) PART A Feb 22, 2020 PART A [id number] ABHILASH GARAY PATIENT Selected Encounter This section includes the information on record at [place] for the Encounter. Date/Time Encounter Type Encounter Description Reason Pro vider Source Mar 15, 2024 12:00 PM Outpatient Encounter COMMUNITY CARE [...] MEDICINE [place] [facility] Apr 06, 2024 10:30 AM AMBULATORY - MEDICINE [facility] Apr 07, 2024 03:30 PM AMBULATORY - NONE [facility] [place] [facility] Apr 08, 2024 01:00 PM AMBULATORY - MEDICINE [place] [facility] [place] [facility] Apr 12, 2024 11:00 AM AMBULATORY - MEDICINE [place] [facility] [place] [facility] Apr 15, 2024 10:00 AM AMBULATORY - MEDICINE [place] [facility] [place] [facility] Apr 19, 2024 11:00 AM AMBULATORY - MEDICINE [place] [facility] [place] [facility] Apr 22, 2024 09:00 AM AMBULATORY - MEDICINE [place] [facility] [place] [facility] May 03, 2024 01:00 PM AMBULATORY - MEDICINE [place] [facility] [place] [facility] May 17, 2024 01:00 PM AMBULATORY - REHAB MEDICIN [place] May 28, 2024 07:30 AM AMBULATORY [place]ICINE [place] [facility] Jun 03, 2024 01:00 PM AMBULATORY - [place]ICINE [place] [facility] Jun 08, 2024 03:00 PM AMBULATORY - REHAB MEDICIN [facility] Jun 11, 2024 08:00 AM AMBULATORY - MEDICINE [facility] Jun 11, 2024 02:00 PM AMBULATORY - REHAB MEDICIN [place] Jun 14, 2024 10:30 AM AMBULATORY - MEDICINE [facility] [place] [facility] Jun 15, 2024 10:00 AM AMBULATORY - REHAB MEDICIN [place] Jun 22, 2024 11:30 AM AMBULATORY - MEDICINE [facility] [place] [facility] Jun 22, 2024 03:00 PM AMBULATORY - REHAB [facility] Jun 24, 2024 01:00 PM AMBULATORY - MEDICINE [facility] Active, Pending, and Scheduled Orders This section includes a listing of several types of active, pending, and scheduled orders, including clinic medications orders, diagnostic test orders, procedure orders and consult orders; where the start date of the order is 45 days before the date of the Encounter or 45 days after the date of theEncounter. The data comes from all [place] treatment [facility]. Test Date/Time Test Type Test Details Facility Name Apr 08, 2024 12:00 AM Laboratory - Chemistry Order URINALYSIS URINE [facility] Apr 15, 2024 03:06 PM Consult Order [facility]-NEUROLOGY Cons Exchange Consultant's Choice [facility] Lab Results: +/- 30 days of the encounter This section includes the Chemistry and Hematology Lab Results on record with [place] for the patient. Radiology Reports and Pathology Reports are provided separately, in subsequent sections. Lab Results This section contains the Chemistry/Hematology Results that were resulted 30 days before or 30 daysafter the date of the Encounter. Date/Time Source Result Type Result - Unit Interpretation Reference Range Comment Mar 31, 2024 09:16 AM [place] HEMOGLOBIN A1C PANEL Specimen Type: BLOOD Comment: [...] Apr 08, 2023 02:27 PM Reporting Lab: [facility] [address] [facility] [address] Performing Lab: [place] [facility] [address] [facility] [address] HEMOGLOBIN A1C 5.2 4.0-5.6 Mar 31, 2024 09:16 AM [place] TSH Specimen Type: SERUM No comment entered. Ordering Provider: GREGG HARMON Report Released Date/Time: Apr 08, 2023 02:27 PM Reporting Lab: [facility] [address] Performing Lab: [facility] [address] [address] TSH 2.67 u[IU]/mL 0.35-5.00 Mar 31, 2024 09:16 AM [place] LIPID PANEL FASTING Specimen Type: SERUM No comment entered. Ordering Provider: GREGG HARMON Report Released Date/Time: Apr 08, 2023 02:27 PM Reporting Lab: [facility] [address] [facility] [address] Performing Lab: [facility] [address] [address] CHOLESTEROL 164 mg/dL TRIGLYCERIDE 102 mg/dL 0-150 LDL calculated 101 mg/dL 0-129 CHOL/HDL 3.8 HDL CHOLESTEROL 43 mg/dL 40-60 Mar 31, 2024 09:16 AM [place] BASIC METABOLIC PANEL (fasting) Specime n Type: SERUM No comment entered. Ordering Provider: GREGG HARMON Report Released Date/Time: Apr 08, 2023 02:27 PM Reporting Lab: [facility] [address] [facility] [address] Performing Lab: [place] [facility] [address] [address] UREA NITROGEN 20 mg/dL 7-25 GLUCOSE 100 mg/dL 65-100 SODIUM 140 mmol/L 135-145 POTASSIUM 4.2 mmol/L 3.5-5.0 CHLORIDE 109 mmol/L 100-110 CO2 23 meq/L 20-30 CREATININE, Serum 0.96 mg/dL 0.50-1.40 eGFR(CKD-EPI 2020) 86 mL/min >60 Mar 31, 2024 09:16 AM [place] LIVER FUNCTION Specimen Type: SERUM No comment entered. Ordering Provider: GREGG HARMON Report Released Date/Time: Apr 08, 2023 02:27 PM Reporting Lab: [address] [address] Performing Lab: [address] [address] PROTEIN,TOTAL 6.0 g/dL 6.0-8.3 ALBUMIN 3.5 g/dL 3.5-5.0 ALKALINE PHOSPHATASE 70 U/L 40-150 AST 14 U/L 5-34 ALT 20 U/L BILIRUBIN, TOTAL 1.0 mg/dL 0.2-1.2 Mar 31, 2024 09:16 AM [place] CBC AND DIFF (AUTO) Specimen Type: BLOOD No comment entered. Ordering Provider: GREGG HARMON Report Released Date/Time: Apr 08, 2023 02:27 PM Reporting Lab: [address] [address] Performing Lab: [address] [address] WBC 4.01 10*3/uL L 4.50-11.00 RBC 4.67 [...] Odalis casey Apr 08, 2023 09:12 AM [place]-TOBACCO NEVER USED [facility] Tobacco Use History This section includes a history of the smoking, or tobacco-related health factors, that were collected on or before the date of the Encounter. The data comes from the [place] facility where the Encounter took place. Date/Time Smoking Status/Tobacco Use Comment F acjaved Aug 09, 2021 09:20 AM [place]-TOBACCO NEVER USED [facility] Encounter Notes: All associated encounter notes This section contains the clinical notes associated to the Encounter. Date/Time Encounter Note(s) Provider Source Mar 15, 2024 12:00 PM NONVA CONSULT: LOCAL TITLE: COMMUNITY CARE-CONSULT RESULT NOTE STANDARD TITLE: NONVA CONSULT DATE OF NOTE: MAR 15, 2024@12:00 ENTRY DATE: MAY 13, 2024@16:06:34 AUTHOR: IFEANYI PARKER COSIGNER: URGENCY: STATUS: COMPLETED VistA Imaging - Scanned Document SCANNED DOCUMENT SIGNATURE NOT REQUIRED Electronically Filed: 05/13/2024 by: IFEANYI BOYLE [facility]
--- OUTSIDE RECORDS SUMMARY | 2024-06-29 19:07 | XMS_ITS | Encounter Summary ---
Author Name [facility] [place] Address [address] [place] [address] Care Team Providers Care Medical Collections Name Role Phone ABDIRAHMAN LAKE Primary Care Provider Unavailenrrique peters Insurance Providers: All historical and current Section [...] BASIC FAMIL Y Jun 24, 2009 112 [id number] [phone] ABHILASH GARAY PATIENT ANTHEM BCBS [place] PREFERRED PROVIDER ORGANIZAT ION (PPO) FEP BASIC FAM Jun 24, 2009 112 [id number] [phone] ABHILASH GARAY PATIENT ANTHEM [place]BS [place] F[place] PREFERRED PROVIDER ORGANIZAT ION (PPO) FEP BASIC FAM Jun 24, 2009 112 [id number] [phone] ABHILASH GARAY PATIENT [place] PREFERRED PROVIDER ORGANIZAT ION (PPO) FEP BASIC FAM Jun 24, 2009 112 [id number] [phone] ABHILASH GARAY PATIENT [place] PREFERRED PROVIDER ORGANIZAT ION (PPO) FEP BASIC FAM Jun 24, 2009 112 [id number] [phone] RUBI GARAYNETH PATIENT [place]BS [place] F[place] PREFERRED PROVIDER ORGANIZAT ION (PPO) BASIC FAMIL Y Jun 24, 2009 [id number] RUBI GARAYNETH PATIENT [place] PREFERRED PROVIDER ORGANIZAT ION (PPO) BASIC FAMIL Y Jun 24, 2009 [id number] RUBI GARAYNETH PATIENT [place] F[place] PREFERRED PROVIDER ORGANIZAT ION (PPO) BASIC FAMIL Y Jun 24, 2009 [id number] RUBI GARAYNETH PATIENT [place] F[place] DENTAL DENTAL INSURANCE BASIC Jul 12, 2009 DENTAL [id number] DEJAHDANIKARUBI ACEVESNETH PATIENT [place] F[place] PREFERRED PROVIDER ORGANIZAT ION (PPO) BASIC FAMIL Y Jun 24, 2009 [id number] ABHILASH GARAY PATIENT [place] FEP ([id number]) PRESCRIPT ION FEPRX Jun 24, 2009 [id number] [phone] ABHILASH GARAY PATIENT [place] FEP BCBS PRESCRIPT ION CAREM ARK FEPRX PLAN Nov 21, 2021 [id number] ABHILASH GARAY PATIENT [place] FEPRX PLAN PRESCRIPT ION CAREM ARK FEPRX Nov 21, 2021 [id number] ABHILASH GARAY PATIENT [place]-F EP BCBS PRESCRIPT ION FEP CAREM ARK Nov 21, 2021 [id number] ABHILASH GARAY PATIENT [place]-F EP BCBS PRESCRIPT ION FEP Jun 23, 2010 [id number] RUBI GARAYNETH PATIENT MEDICARE ([facility]) MEDICARE () PART A Feb 22, 2020 PART A [id number] ABHILASH GARAY PATIENT MEDICARE (WNR) MEDICARE (M) PART A Feb 22, 2020 PART A [id number] ABHILASH GARAY PATIENT MEDICARE (WNR) MEDICARE (M) PART A Feb 22, 2020 PART A [id number] ABHILASH GARAY PATIENT MEDICARE (WNR) MEDICARE (M) PART A Feb 22, 2020 PART A [id number] ABHILASH GARAY PATIENT MEDICARE (WNR) MEDICARE (M) PART A Feb 22, 2020 PART A [id number] [id number] ABHILASH GARAY PATIENT Selected Encounter This section includes the information on record at [place] for the Encounter. Date/Time Encounter Type Encounter Description Reason Pro vider Source May 12, 2024 12:07 PM Outpatient Encounter ADMIN PAT ACTIVTIES (MASNONCT) IHE Encounter Template Text not used by [place] Plan of Treatment: Future Appointments (+ 6 months) and Future Tests (+/- 45 days) The Plan of Treatment section includes [facility] care [facility] the [facility] [place] [facility] This section includes [...] 17, 2024 01:00 PM [facility] May 28, 2024 07:30 AM AM[facility]ULAT[facility] - MEDICINE [facility] [place] [facility] Jun 03, 2024 01:00 PM AMBULATORY - MEDICINE [place] [facility] Jun 08, 2024 03:00 PM AMBULATORY - RE[facility]AB [facility] Jun 11, 2024 08:00 AM [facility] Jun 11, 2024 02:00 PM AM[facility]ULATORY [facility] Jun 14, 2024 10:30 AM AMBULATORY - MEDICINE [place] [facility] Jun 15, 2024 10:00 AM AMBULATORY - [facility]AB [facility] Jun 22, 2024 11:30 AM AMBULATORY - MEDICINE [facility] [place] [facility] Jun 22, 2024 03:00 PM AMBULATORY - REHAB [facility] [place] Jun 24, 2024 01:00 PM AMBULATORY - MEDICINE [place] [facility] Jun 28, 2024 11:00 AM AMBULATORY - NONE [place] [facility] Jul 07, 2024 01:00 PM AMB[place]ORY - [place]IC[place] Jul 23, 2024 01:30 PM AMBULATORY - MEDICINE [place] [facility] Aug 04, 2024 10:00 AM AMBULATORY - MEDICINE [place] [facility] Aug 25, 2024 10:30 AM AMBULATORY - MEDICINE [place] [facility] Sep 21, 2024 01:30 PM AM[place]ORY - [place]IC[place] Oct 05, 2024 11:00 AM [facility]ORY - [facility]ICINE [facility] Active, Pending, and Scheduled Orders [...] Laboratory - Chemistry Order URINALYSIS URINE [facility] [place] Apr 15, 2024 03:06 PM Consult Order [facility]OLOGY Cons [place] [facility] Jun 01, 2024 11:54 AM Consult Order [facility] MASSAGE THERAPY Cons [place] Maker's Choice [place] Lab Results: +/- 30 days of the [...] Range Comment Apr 15, 2024 11:16 AM [facility] CPK Specimen Type: SERUM No comment entered. Ordering Provider: JOHN PAUL DENNISON Report Released Date/Time: Apr 15, 2024 10:55 AM Reporting [facility] [address] [place] [address] Performing Lab: [facility] [address] [facility] [id number] CPK 67 U/L 30-200 Social History: Smoking [...] Facil ity Apr 08, 2023 09:12 AM [place]-TOBACCO NEVER USED [facility] Tobacco Use History This section includes a history of the smoking, or tobacco-related health factors, that were collected on or before the date of the Encounter. The data comes from the [place] facility where the Encounter took place. Date/Time Smoking Status/Tobacco Use Comment F acility Aug 09, 2021 09:20 AM [place]-TOBACCO NEVER USED [facility] Encounter Notes: All associated encounter notes This section contains the clinical notes associated to the Encounter. Date/Time Encounter Note(s) Provider Source May 12, 2024 12:07 PM ADMINISTRATIVE NOT E: LOCAL TITLE: CCC: SCHEDULING ADMINISTRATION STANDARD TITLE: ADMINISTRATIVE NOTE DATE OF NOTE: MAY 12, 2024@12:07:58 ENTRY DATE: MAY 12, 2024@12:07:58 AUTHOR: ANNIE OSEI COSIGNER: URGENCY: STATUS: COMPLETED CCC: SCHEDULING ADMINISTRATION Has ADDENDA Patient Demographics Patient Name: ABHILASH Peters TANISHA Patient Primary Phone: [phone] Patient Primary Address: [address] [place] [id number] Patient : 1955 Patient Age: 69 Call Back Number: [phone] Caller/Recipient Relation to Patient: Self Caller Name: ABHILASH GARAY Administrative Administrative Note Reason: Other Administrative Note Comments: [facility] called to follow up if a fax was received so that he can get compression socks. Note from 05/07 read however states fax was sent yesterday and he needs this to be processed. He feels he is being failed by the [place] as this is not being processed. Please call back at [phone]. IMPORTANT: This note was created by [facility] Clinical Contact [facility] staff. Please do not alert the staff member by adding them as a signer for future communications. Alerts are not monitored by this user. /yunior/ ANNIE OSEI [id number] Signed: 05/12/2024 12:07 Receipt Acknowledged By: 05/13/2024 12:33 /yunior/ BREANNA BAKER RN-BC REGISTERED NURSE 05/12/2024 12:56 /es/ EUGENIE SALVADOR LPN Licensed Practical Nurse 05/13/2024 ADDENDUM STATUS: COMPLETED Called [facility] and left voicemail that advised that script for compression stockings was received by [facility] and consult has been entered for physical therapy to follow up with about receiving the stockings. /yunior/ BREANNA BAKER RN-BC REGISTERED NURSE Signed: 05/13/2024 12:38 ANNIE [facility]SEI [place] [facility]
--- OUTSIDE RECORDS SUMMARY | 2024-06-29 19:08 | XMS_ITS | Encounter Summary ---
Author Name [facility] [place] [facility] [place] Address [address] [place] [address] Care Team Providers Care Special Client Bus Driver Name Role Phone ABDIRAHMAN [place] Primary [...] BASIC FAMIL Y Jun 24, 2009 [id number] [phone] ABHILASH GARAY PATIENT ANTHEM BCBS [place] F[place] PREFERRED PROVIDER ORGANIZAT ION (PPO) FEP BASIC FAM Jun 24, 2009 112 [id number] [phone] ABHILASH GARAY PATIENT ANTHEM BCBS [place] F[place] PREFERRED PROVIDER ORGANIZAT ION (PPO) FEP BASIC FAM Jun 24, 2009 112 [id number] [phone] ABHILASH GARAY PATIENT [place] PREFERRED PROVIDER ORGANIZAT ION (PPO) FEP BASIC FAM Jun 24, 2009 112 [id number] [phone] ABHILASH GARAY PATIENT [place] PREFERRED PROVIDER ORGANIZAT ION (PPO) FEP BASIC FAM Jun 24, 2009 112 [id number] [phone] ABHILASH GARAY PATIENT [place]BS [place] FEP PREFERRED PROVIDER ORGANIZAT ION (PPO) BASIC FAMIL Y Jun 24, 2009 [id number] ABHILASH GARAY PATIENT [place] PREFERRED PROVIDER ORGANIZAT ION (PPO) BASIC FAMIL Y Jun 24, 2009 112 [id number] [phone] ABHILASH GARAY PATIENT [place] FEP PREFERRED PROVIDER ORGANIZAT ION (PPO) BASIC FAMIL Y Jun 24, 2009 112 [id number] [phone] ABHILASH GARAY PATIENT [place] F[place] DENTAL DENTAL INSURANCE BASIC Jul 12, 2009 DENTAL [id number] ABHILASH GARAY PATIENT [place] PREFERRED PROVIDER ORGANIZAT ION (PPO) BASIC FAMIL Y Jun 24, 2009 [id number] [phone] ABHILASH GARAY PATIENT [place] FEP ([id number]) PRESCRIPT ION FEPRX Jun 24, 2009 [id number] [phone] ABHILASH GARAY PATIENT [place] FEP BCBS PRESCRIPT ION CAREM ARK FEPRX PLAN Nov 21, 2021 [id number] ABHILASH GARAY PATIENT [place] FEPRX PLAN PRESCRIPT ION CAREM ARK FEPRX Nov 21, 2021 [id number] ABHILASH GARAY PATIENT [place]-F EP BCBS PRESCRIPT ION FEP CAREM ARK Nov 21, 2021 [id number] ABHILASH GARAY PATIENT [place]-F EP BCBS PRESCRIPT ION FEP Jun 23, 2010 [id number] RUBI GARAYNETH PATIENT MEDICARE (WN) MEDICARE () PART A Feb 22, 2020 PART A [id number] ABHILASH GARAY PATIENT MEDICARE (WN) MEDICARE () PART A Feb 22, 2020 PART A [id number] ABHILASH GARAY PATIENT MEDICARE (WNR) MEDICARE (M) PART A Feb 22, 2020 PART A [id number] ABHILASH GARAY PATIENT MEDICARE (WNR) MEDICARE (M) PART A Feb 22, 2020 PART A [id number] ABHILASH GARAY PATIENT MEDICARE (WNR) MEDICARE (M) PART A Feb 22, 2020 PART A [id number] ABHILASH GARAY PATIENT Selected Encounter This section includes the information on record at [place] for the Encounter. Date/Time Encounter Type Encounter Description Reason Pro vider Source May 31, 2024 09:33 AM Outpatient Encounter PHYSICAL THERAPY IHE Encounter Template Text not used [...] Date/Time Appointment Type Appointme nt Facility Name Jun 03, 2024 01:00 PM AMBULATORY - [place]ICINE [place] [facility] Jun 08, 2024 03:00 PM AM[facility]ULATORY - [facility]AB [facility] Jun 11, 2024 08:00 AM AMBULATORY - MEDICINE [facility] Jun 11, 2024 02:00 PM AMBULATORY - REHAB [facility] Jun 14, 2024 10:30 AM AMBUL[place]ORY - [place]ICINE [place] [facility] Jun 15, 2024 10:00 AM AMBULATORY - REHAB [facility] Jun 22, 2024 11:30 AM AMBULATORY - [place]ICINE [place] [facility] Jun 22, 2024 03:00 PM AMBULATORY - REHAB [facility] Jun 24, 2024 01:00 PM AMBULATORY - MEDICINE [place] [facility] Jun 28, 2024 11:00 AM AMBULATORY - NONE [place] [facility] Jul 07, 2024 01:00 PM AM[place]UL[place]ORY - MEDICINE [place] Jul 23, 2024 01:30 PM AMBULATORY - MEDICINE [place] [facility] Aug 04, 2024 10:00 AM AMBULATORY - MEDICINE [place] [facility] Aug 25, 2024 10:30 AM AMBULATORY - MEDICINE [place] [facility] Sep 21, 2024 01:30 PM [facility]ORY - [place]IC[place] Oct 05, 2024 11:00 AM [facility] Active, Pending, and Scheduled Orders This section includes a listing of several types of active, pending, and scheduled orders, including clinic medications orders, diagnostic test orders, procedure orders and consult orders; where the start date of the order is 45 days before the date of the Encounter or 45 days after the date of theEncounter. The data comes from all [place] treatment facilities. Test Date/Time Test Type Test Details Facility Name Jun 01, 2024 11:54 AM Consult Order [facility] MASSAGE THERAPY Cons Cooling Tower Technician's [facility] Social History: Smoking Status (Most current) and Tobacco Use (All prior to encounter date) This section includes the most current, and the historical, smoking and tobacco- related health factors from the [place] facility where the Encounter took place. Current Smoking Status This section includes the most current smoking, or tobacco-related health factor, from the [place] facility where the Encounter took place. Date/Time Current Smoking Status Comment [place] it[place] Apr 08, 2023 09:12 AM [place]-TOBACCO NEVER USED [facility] Tobacco Use History This section includes a history of the smoking, or tobacco-related health factors, that were collected on or before the date of the Encounter. The data comes from the [place] facility where the Encounter took place. Date/Time Smoking Status/Tobacco Use Comment F acility Aug 09, 2021 09:20 AM [facility] Encounter Notes: All associated encounter notes This section contains the clinical notes associated to the Encounter. Date/Time Encounter Note(s) Provider Source May 31, 2024 09:33 AM ADMINISTRATIVE NOT E: LOCAL TITLE: ADMINISTRATIVE NOTE STANDARD TITLE: ADMINISTRATIVE NOTE DATE OF NOTE: MAY 31, 2024@09:33 ENTRY DATE: MAY 31, 2024@09:33:16 AUTHOR: IVAN ROTH COSIGNER: URGENCY: STATUS: COMPLETED ADMINISTRATIVE NOTE Has ADDENDA called and would like to order 5 pair of black compression stockings and the devise to get them on, mailed to him. Confirmed address and phone number [facility] [employer] COMPRESSION: 20-30mmhg SIZE: LARGE KNEE LENGTH CLOSED TOE COLOR: BLACK ITEM#: [id number] /yunior/ IVAN ROTH Signed: 05/31/2024 09:34 Receipt Acknowledged By: 05/31/2024 10:45 /yunior/ CARLOS BENDER PT, DPT PHYSICAL THERAPIST 05/31/2024 ADDENDUM STATUS: COMPLETED prosthetics consult for 5 additional pairs placed today with compression socks to be shipped direct to . /yunior/ CARLOS BENDER PT, DPT PHYSICAL THERAPIST Signed: 05/31/2024 10:46 IVAN ROTH [place]
--- OUTSIDE RECORDS SUMMARY | 2024-06-29 19:08 | XMS_ITS | Encounter Summary ---
Author Name [facility] [place] [facility] [place] Address [address] [place] [address] Care Team Providers Care Pet Technologist Name Role Phone ABDIRAHMAN LAKE Primary Care [...] BASIC FAMIL Y Jun 24, 2009 112 [id number] [phone] ABHILASH GARAY PATIENT ANTHEM [place]BS [place] PREFERRED PROVIDER ORGANIZAT ION (PPO) FEP BASIC FAM Jun 24, 2009 112 [id number] [phone] ABHILASH GARAY PATIENT ANTHEM BCBS [place] F[place] PREFERRED PROVIDER ORGANIZAT ION (PPO) FEP BASIC FAM Jun 24, 2009 112 [id number] [phone] ABHILASH GARAY PATIENT ANTHEM [place] PREFERRED PROVIDER ORGANIZAT ION (PPO) FEP BASIC FAM Jun 24, 2009 112 [id number] [phone] ABHILASH GARAY PATIENT [place] F[place] PREFERRED PROVIDER ORGANIZAT ION (PPO) FEP BASIC FAM Jun 24, 2009 112 [id number] [phone] RUBI GARAYNETH PATIENT BCBS [place] FEP PREFERRED PROVIDER ORGANIZAT ION (PPO) BASIC FAMIL Y Jun 24, 2009 112 [id number] [phone] ABHILASH GARAY PATIENT [place] PREFERRED PROVIDER ORGANIZAT ION (PPO) BASIC FAMIL Y Jun 24, 2009 112 [id number] ABHILASH GARAY PATIENT [place] F[place] PREFERRED PROVIDER ORGANIZAT ION (PPO) BASIC FAMIL Y Jun 24, 2009 112 [id number] ABHILASH GARAY PATIENT [place] F[place] DENTAL DENTAL INSURANCE BASIC Jul 12, 2009 DENTAL [id number] ABHILASH GARAY PATIENT [place] F[place] PREFERRED PROVIDER ORGANIZAT ION (PPO) BASIC FAMIL Y Jun 24, 2009 112 [id number] [phone] ABHILASH GARAY PATIENT [employer] FEP ([id number]) PRESCRIPT ION FEPRX Jun 24, 2009 [id number] [phone] ABHILASH GARAY PATIENT [employer] FEP BCBS PRESCRIPT ION CAREM ARK FEPRX PLAN Nov 21, 2021 [id number] ABHILASH GARAY PATIENT [employer] FEPRX PLAN PRESCRIPT ION CAR[place] [employer] FEPRX Nov 21, 2021 [id number] ABHILASH GARAY PATIENT [employer]-F [place] BCBS PRESCRIPT ION FEP CAREM ARK Nov 21, 2021 [id number] ABHILASH GARAY PATIENT [employer] EP BCBS PRESCRIPT ION FEP Jun 23, 2010 [id number] ABHILASH PATIENT MEDICARE (WN) MEDICARE (M) PART A Feb 22, 2020 PART A [id number] [phone] RUBI GARAYNETH PATIENT MEDICARE (WN) MEDICARE (M) PART A Feb 22, 2020 PART A [id number] ABHILASH GARAY PATIENT MEDICARE (WNR) MEDICARE (M) PART A Feb 22, 2020 PART A [id number] ABHILASH GARAY PATIENT MEDICARE (WNR) MEDICARE (M) PART A Feb 22, 2020 PART A [id number] ABHILASH GARAY PATIENT MEDICARE (WNR) MEDICARE (M) PART A Feb 22, 2020 PART A [id number] ABHILASH GARAY PATIENT Selected Encounter This section includes the information on record at [place] for the Encounter. Date/Time Encounter Type Encounter Description Reason Provider Source May 17, 2024 01:00 PM SELF CARE MNGMENT TRAINING PHYSICAL THERAPY ICD-10-CM G90.09 Other idiopathic peripheral autonomic neuropathy CARLOS MEDRANO [place] Encounter Template Text not used by [place] Assessments - Encounter Diagnoses This section includes the primary and secondary diagnoses documented for the Encounter. Date/Time Primary/Secondary Diagnosis Diagnosis Name Provider Source Jun 02, 2024 04:40 PM PRIMARY Other idiopathic peripheral autonomic neuropathy CARLOS MEDRANO [facility] Plan of Treatment: Future Appointments (+ 6 [...] Appointment Type Appointme nt Facility Name May 28, 2024 07:30 AM AMBULATORY - MEDICINE [place] [facility] [place] [facility] Jun 03, 2024 01:00 PM AMBULATORY - MEDICINE [place] [facility] [place] [facility] Jun 08, 2024 03:00 PM AMBULATORY - [facility] Jun 11, 2024 08:00 AM [facility] Jun 11, 2024 02:00 [facility] 14, [facility]24 10:30 AM [facility] - MEDIC[facility] [place] [facility] [place] [facility] Jun 15, 2024 10:00 AM AMBULATORY - REHAB MEDICIN E [facility] Jun 22, 2024 11:30 AM AMBULATORY - MEDICINE [place] [facility] [place] [facility] Jun 22, 2024 03:00 PM AMBULATORY - REHAB MEDICIN E [facility] Jun 24, 2024 01:00 PM AMBULATORY - MEDICINE [place] [facility] [place] [facility] Jun 28, 2024 11:00 AM AMBULATORY - NONE [facility] [place] [facility] Jul 07, 2024 01:00 PM AMBUL[place]ORY - MEDICINE [place] Jul 23, 2024 01:30 PM AMBULATORY - MEDICINE [facility] [place] [facility] Aug 04, 2024 10:00 AM AMBULATORY - MEDICINE [facility] [place] [facility] Aug 25, 2024 10:30 AM AMBULATORY - MEDICINE [place] [facility] [place] [facility] Sep 21, 2024 01:30 PM AMBULATORY [...] Laboratory - Chemistry Order URINALYSIS URINE SP [facility] Apr 15, 2024 03:06 PM Consult Order COMMUNITY CARE-NEUROLOGY Cons Pleater[facility] Choice [facility] [place] [facility] Jun 01, 2024 11:54 AM Consult Order COMMUNITY [facility] [place] THERAPY Cons Pleater's Choice [facility] Social History: Smoking Status (Most current) and [...] Date/Time Current Smoking Status Vanita casey Apr 06, 2024 10:30 AM VA-TOBACCO NEVER USED [place] Tobacco Use History This section includes a history of the smoking, or tobacco-related health factors, that were collected on or before the date of the Encounter. The data comes from the [place] facility where the Encounter took place. Date/Time Smoking Status/Tobacco Use Comment F darvin Aug 18, 2020 10:00 AM VA-TOBACCO NEVER USED [place] Dec 15, 2018 12:14 PM VA-TOBACCO NEVER USED [facility] Jun 11, 2017 04:15 PM LIFETIME NON-TOBACCO USER [facility] Jan 01, 2016 11:12 AM LIFETIME NON-TOBACCO USER [facility] Jan 16, 2005 08:54 AM LIFETIME NON-SMOKER [facility] Nov 29, 2003 08:05 AM LIFETIME NON-SMOKER [facility] Jan 07, 2001 08:33 AM LIFETIME NON-SMOKER [facility] Encounter Notes: All associated encounter notes This section contains the clinical notes associated to the Encounter. Date/Time Encounter Note(s) Provider Source May 17, 2024 04:00 PM PHYSICAL THERAPY C ONSULT: LOCAL TITLE: PHYSICAL THERAPY CONSULT STANDARD TITLE: PHYSICAL THERAPY CONSULT DATE OF NOTE: MAY 17, 2024@16:00 ENTRY DATE: MAY 17, 2024@16:00:21 AUTHOR: CARLOS MEDRANO COSIGNER: URGENCY: STATUS: COMPLETED Initial Evaluation date:05/17/24 Date of note: 05/17/24 Re-evaluation date: 06/16/24 Treatment #: eval Treatment time: 60min Diagnosis: Other Idiopathic Peripheral Autonomic Neuropathy(ICD-10-CM G90.09) Provider: ABDIRAHMAN LAKE Pt identified by: full name and Resting Vitals: HR:67 SPO2: 96% BP: 130/70 SUBJECTIVE: History of Current injury: Patient is a 69 year old male that is referred to physical therapy for gait and balance issues. Patient comes to clinic with c/o radiculopathy and balance issues. Patient states that they has neuropathy in both of their feet and has no feeling in their toes. Patient has been having back pain for several years but started noticing neuropathy pain about a year or two ago. Patient reports a history of one fall a few years ago when they fell backwards in their yard and hit their head. They report no recent falls but they have been very fearful and cautious about their balance since. They tried Gerofit but was afraid of falling but has been doing chair yoga. Patient has tried massage, acupuncture, aquatic therapy with no relief from any of these. Aggravating: Prolonged walking and standing Alleviating: None Current exercise routine: Chair yoga Work: Retired, [employer] for 28 years PLOF: Patient Goal: Improve balance and walking Number of days per week with pain: 12/27 OBJECTIVE: Red flags: Recent Trauma Age (50+)(+) Hx of Cancer Fever/chills/night sweats Unexplained weight loss Recent infection Immunosuppression Night pain Saddle anesthesia Bowel/bladder dysfunction LE neurological deficit (+) Psychosocial flags: mental health dx entrenched/unhelpful beliefs about pain clinically relevant catastrophization signs of kinesiophobia Posture: Gait: L trendelenberg, decreased step length, widened RACHEL, Trendelenberg: Positive on the L Neuro: Sensation: Impaired light touch along entire LE B L3-S1, deep touch intact for all dermatomes Protective sensation: R:7 L:89 Proprioception: Big Toe 5/5 Bilaterally ROM: STRENGTH: Hip flexion L: 4/5 R: 4+/5 Knee extension L: 5/5* R: 5/5 Knee flexion L: 5/5 R: 5/5 Ankle DF L: 5/5 R: 5/5 Ankle PF: L: 5/5 R: 5/5 Ankle INV L: 5/5 R: 5/5 Ankle EV L: 5/5 R: 5/5 Big toe ext: L: 5/5 R: 5/5 Toe flexion: L: 5/5 R: 5/5 Hip ABD L: 4/5 R: 4/5 Hip ADD: L: 4+/5 R: 4+/5 Hip Extension L: /5 R: /5 Glute Max: L: /5 R: /5 Palpation: Joint Mobility: SPECIAL TESTS: 10 Meter Walk Test, self-selected velocity (average): 5 Times Sit to Stand: 30 second sit to stand: 6 TU Functional Reach: Norms Age Males Females 20-40 16.7 + 1.9 14.6 + 2.2 41-69 14.9 + 2.2 13.8 + 2.2 70-87 13.2 + 1.6 10.5 + 3.5 MDC: Diagnosis(MDC) Parkinsons(9cm) Stroke(2.67cm) Likelihood of falling: If unable to reach, 8x more likely If reaches< 6 , is 4x more likely If reaches 6--1 0 , 2x more likely If reaches> 10 , unlikely to fall Colon: 1: Sit to stand: 4 2: Standing unsupported: 3 3: Sitting with feet on floor:4 4: Stand to sit: 4 5: Transfers: 4 6: Standing eyes closed: 4 7: Standing feet together:3 8: Forward reach: 3 9: honing machine set up operator tool from floor:3 10: Torso rotation:4 11: Turn 360de 12: Place foot on stool:4 13: Tandem: 0 14: Standing on one le Total score: 45/56 Modified CTSIB: Feet together flat surface: Eyes open: 30 Eyes closed: 30 moderate sway Feet together foam: Eyes open: Eyes closed: INTERVENTIONS: Therapeutic Exercise: Mins: Manual therapy: Mins: Neuro re-ed: Mins: Other: Mins: Modalities: Mins: Access Code: [email or web address] URL: [email or web address] Date: 05/17/2024 Prepared by: Carlos Medrano Exercises - Seated Hip Abduction with Resistance - 1 x daily - 7 x weekly - 3 sets - 10 reps - Seated Knee Lifts with Resistance - 1 x daily - 7 x weekly - 2-3 sets - 10-20 reps - Seated Hip Adduction Isometrics with Ball - 1 x daily - 7 x weekly - 2 sets - 10 reps - 5 hold - Heel Raises with Counter Support - 1 x daily - 7 x weekly - 2-3 sets - 10-20 reps - Heel Toe Raises with Counter Support - 1 x daily - 7 x weekly - 2-3 sets - 10-20 reps - Standing Alternating Knee Flexion - 1 x daily - 7 x weekly - 2-3 sets - 10-20 reps - Standing Hip Abduction with Counter Support - 1 x daily - 7 x weekly - 2-3 sets - 10-20 reps - Standing March with Counter Support - 1 x daily - 7 x weekly - 2-3 sets - 10-20 reps - Mini Squat with Counter Support - 1 x daily - 7 x weekly - 2-3 sets - 10-20 reps [] contraindication screen completed prior to modality [] skin intact pre/post modality PATIENT EDUCATION: Mins:25 Patient education was provided for all aspects of care during this clinical Encounter. Discussed importance of low impact cardio and exercises to help increase blood flow to help with neuromuscular reeducation and stimulating distal nerve endings. Provided updated written HEP to patient reviewing proper form sets reps and frequency and safety precautions with patient verbalizing and demonstrating good understanding during visit. Conpression socks: Discussed wear schedule, putting on first thing in the morning, removing at night Not wearing socks with stockings Applying lotion to leg at night Skin checks at night Hand wash stockings daily and air dry completely prior to wearing again Best to bathe in the evening right before bed Typical lifespan of stocking is 3-6months Remove stockings if: Toes feel cool, numb, or tingly Toes are becoming increasingly dark in color Increased discomfort or pain Donning: Want to grab heel of sock and turn inside out, do not want to bunch up sock Place foot in sock and roll sock up leg trying to smooth out all bumps Don't want to pinch and pull stocking to avoid scratching skin and for longevity of the sock [place]: Want to grab each side and slowly unroll Discussed will deliver to patient home (2-2.5weeks arrival time approx), advise patient to try on stockings when they receive them, call if there are issues donning/doffing or if need to come in for education or consult for horace schrader. ASSESSMENT: Patient seen for physical therapy evaluation following referral for gait and balance issues. Patient presents with primary complaint of radiculopathy with gait and balance issues. On physical assessment patient has loss of light touch along all LE dermatomes bilaterally with deep touch still intact. Patient has a mild loss of protective sensation scoring 8/9 on the R and 7/9 on the L. Proprioception is fully intact at the big toes scoring 5/5 on assessment. On MMT patient has bilateral weakness at the hip abductors and hip flexors. On outcome measure patient has a tug time of 16 seconds indicating an increased risk of falls in the community. Patient has a 30 STS score of 6 reps which is below the normative value of his age group of 11 reps indicating decreased LE power and strength. Patients COLON balance score of 45 shows mild-moderate impairments in patients functional balance. Based on patient hx and findings of assessment patient is at an increased risk of fall seen with outcome measures, impaired sensations, and strength deficits. Patient reports these symptoms impact their ability to complete their normal daily tasks like walking, standing, and exercising. Patient requires skilled physical therapy services in order to address these impairments ad activity limitations and to achieve patient goal of improve balance and walk better. GOALS: within 4-6 weeks patient will: 1) Increase right and left LE strength by 1/2 grade MMT to improve functional mobility. 2) Pt will improve 30 STS score to within norms for age to maximize functional strength. 3) Pt will be independent with a home exercise program to maximize functional independence within the community and reduce risk of falls. 4) Improve COLON balance score by 4 points to meet the MDC to show significant improvement in their functional balance 5) decrease their Tug time to 12seconds to decrease their risk of falls in the community PLAN: POC was discussed and agreed upon with patient for skilled PT 1x/wk x 4-6 weeks. Progress LE strengthening and weightbearing exercise to improve tolerance. Progress static and reactive balance to improve ankle and hip strategies. [X]Low impact cardio: [X]Nustep []Recumbent bike []Recumbent elliptical []TM []Manual: []STM/DTM []METs/SCS []IASTM []Joint mobilizations [X]Therex: []Progressive UQ []Progressive Core [X]Progressive LQ []UQ flex [] Lumbar flex [X]LQ flex []Foam rolling [X]Proprioception [X]Neuro Re-education: [X]Static [X]Dynamic [X]Dual-Task [X]Education: [X]Posture []Ergonomics [X]Bodymechanics [X]Self-care strategies []PNE []Modalities(PRN): []Heat/Ice []Estim/Tens []Mechanical traction []K-tape [] Biofreeze This visit was primarily performed by Prasad Paniagua [facility], however, I, LALO Richard PTT, was present during the course of this visit in its entirety providing direct supervision for this student. I agree with treatment and plan of care as stated. /yunior/ CARLOS MEDRANO PT, DPT PHYSICAL THERAPIST Signed: 05/17/2024 16:05 Receipt Acknowledged By: 05/17/2024 16:07 /yunior/ PRASAD PANIAGUA PHYSICAL THERAPY STUDENT CARLOS MEDRANO
--- OUTSIDE RECORDS SUMMARY | 2024-06-29 19:08 | XMS_ITS | Encounter Summary ---
Author Name [facility] [place] [facility] [place] Address [address] [place] [address] Care Team Providers Care Animal Care Provider Name Role Phone ABDIRAHMAN LAKE Primary [...] BASIC FAMIL Y Jun 24, 2009 [id number] [phone] ABHILASH GARAY PATIENT ANTHEM BCBS [place] F[place] PREFERRED PROVIDER ORGANIZAT ION (PPO) FEP BASIC FAM Jun 24, 2009 112 [id number] [phone] ABHILASH GARAY PATIENT ANTHEM BCBS [place] FEP PREFERRED PROVIDER ORGANIZAT ION (PPO) FEP BASIC FAM Jun 24, 2009 112 [id number] [phone] ABHILASH GARAY PATIENT ANTHE[place] PREFERRED PROVIDER ORGANIZAT ION (PPO) FEP BASIC FAM Jun 24, 2009 112 [id number] [phone] ABHILASH GARAY PATIENT [place] PREFERRED PROVIDER ORGANIZAT ION (PPO) FEP BASIC FAM Jun 24, 2009 112 [id number] [phone] ABHILASH GARAY PATIENT [place] PREFERRED PROVIDER ORGANIZAT ION (PPO) BASIC FAMIL Y Jun 24, 2009 112 [id number] [phone] ABHILASH GARAY PATIENT [place] PREFERRED PROVIDER ORGANIZAT ION (PPO) BASIC FAMIL Y Jun 24, 2009 112 [id number] ABHILASH GARAY PATIENT [place] PREFERRED PROVIDER ORGANIZAT ION (PPO) BASIC FAMIL Y Jun 24, 2009 112 [id number] [phone] ABHILASH GARAY PATIENT [place] FEP DENTAL DENTAL INSURANCE BASIC Jul 12, 2009 DENTAL [id number] [phone] ABHILASH GARAY PATIENT [place] PREFERRED PROVIDER ORGANIZAT ION (PPO) BASIC FAMIL Y Jun 24, 2009 112 [id number] ABHILASH GARAY PATIENT [employer] FEP ([id number]) PRESCRIPT ION FEPRX Jun 24, 2009 [id number] [phone] ABHILASH GARAY PATIENT [place] FEP BCBS PRESCRIPT ION [place] FEPRX PLAN Nov 21, 2021 [id number] ABHILASH GARAY PATIENT [employer] FEPRX PLAN PRESCRIPT ION CAR[employer] ARK FEPRX Nov 21, 2021 [id number] ABHILASH GARAY PATIENT [employer]-F [place] BCBS PRESCRIPT ION FEP CAR[place] ARK Nov 21, 2021 [id number] ABHILASH GARAY PATIENT [employer] BCBS PRESCRIPT ION FEP Jun 23, 2010 [id number] RUBI GARAYNETH PATIENT MEDICARE (WN) MEDICARE (M) PART A Feb 22, 2020 PART A [id number] [phone] ABHILASH GARAY PATIENT MEDICARE (WN) MEDICARE (M) PART A Feb 22, 2020 PART A [id number] ABHILASH GARAY PATIENT MEDICARE (WNR) MEDICARE (M) PART A Feb 22, 2020 PART A [id number] [phone] ABHILASH GARAY PATIENT MEDICARE (WNR) MEDICARE (M) PART A Feb 22, 2020 PART A [id number] ABHILASH GARAY PATIENT MEDICARE (WNR) MEDICARE (M) PART A Feb 22, 2020 PART A [id number] ABHILASH GARAY PATIENT Selected Encounter This section includes the information on record at [place] for the Encounter. Date/Time Encounter Type Encounter Description Reason Pro vider Source IHE Encounter Template Text not used by [facility]
--- OUTSIDE RECORDS SUMMARY | 2024-06-29 19:08 | XMS_ITS | Encounter Summary ---
Author Name [facility] [place] Address [address] [place] [address] Care Team Providers Care Hand Brim Ironer Name Role Phone ABDIRAHMAN LA[place] Primary Care [...] BASIC FAMIL Y Jun 24, 2009 112 [id number] [phone] ABHILASH GARAY PATIENT ANTHEM BCBS [place] F[place] PREFERRED PROVIDER ORGANIZAT ION (PPO) FEP BASIC FAM Jun 24, 2009 112 [id number] [phone] ABHILASH GARAY PATIENT ANTHEM BCBS [place] F[place] PREFERRED PROVIDER ORGANIZAT ION (PPO) FEP BASIC FAM Jun 24, 2009 112 [id number] [phone] ABHILASH GARAY PATIENT ANTHEM [place] PREFERRED PROVIDER ORGANIZAT ION (PPO) FEP BASIC FAM Jun 24, 2009 112 [id number] [phone] ABHILASH GARAY PATIENT [place] PREFERRED PROVIDER ORGANIZAT ION (PPO) FEP BASIC FAM Jun 24, 2009 112 [id number] [phone] RUBI GARAYNETH PATIENT BCBS [place] F[place] PREFERRED PROVIDER ORGANIZAT ION (PPO) BASIC FAMIL Y Jun 24, 2009 112 [id number] RUBI GARAYNETH PATIENT [place] PREFERRED PROVIDER ORGANIZAT ION (PPO) BASIC FAMIL Y Jun 24, 2009 112 [id number] [phone] RUBI GARAYNETH PATIENT [place] FEP PREFERRED PROVIDER ORGANIZAT ION (PPO) BASIC FAMIL Y Jun 24, 2009 112 [id number] RUBI GARAYNETH PATIENT [place] FEP DENTAL DENTAL INSURANCE BASIC Jul 12, 2009 DENTAL [id number] DEJAHDANIKARUBI ACEVESNETH PATIENT [place] F[place] PREFERRED PROVIDER ORGANIZAT ION (PPO) BASIC FAMIL Y Jun 24, 2009 [id number] ABHILASH GARAY PATIENT [place] FEP ([id number]) PRESCRIPT ION FEPRX Jun 24, 2009 [id number] [phone] ABHILASH GARAY PATIENT [place] FEP BCBS PRESCRIPT ION CAREM ARK FEPRX PLAN Nov 21, 2021 [id number] ABHILASH GARAY PATIENT [place] FEPRX PLAN PRESCRIPT ION CAREM ARK FEPRX Nov 21, 2021 [id number] ABHILASH GARAY PATIENT [place]-F EP BCBS PRESCRIPT ION FEP CAREM ARK Nov 21, 2021 [id number] ABHILASH GARAY PATIENT [place]-F EP BCBS PRESCRIPT ION FEP Jun 23, 2010 [id number] RUBI GARAYNETH PATIENT MEDICARE ([facility]) MEDICARE () PART A Feb 22, 2020 PART A [id number] [phone] ABHILASH GARAY PATIENT MEDICARE (WNR) MEDICARE (M) PART A Feb 22, 2020 PART A [id number] ABHILASH GARAY PATIENT MEDICARE (WNR) MEDICARE (M) PART A Feb 22, 2020 PART A [id number] ABHILASH GARAY PATIENT MEDICARE (WNR) MEDICARE (M) PART A Feb 22, 2020 PART A [id number] [phone] [id number] ABHIALSH GARAY PATIENT MEDICARE (WNR) MEDICARE (M) PART A Feb 22, 2020 PART A [id number] [phone] ABHILASH GARAY PATIENT Selected Encounter This section includes the information on record at [place] for the Encounter. Date/Time Encounter Type Encounter Description Reason Pro vider Source May 25, 2024 06:18 PM Outpatient Encounter ADMIN PAT ACTIVTIES (MASNONCT) IHE Encounter Template Text not used by [place] Plan of Treatment: Future Appointments (+ 6 months) and Future Tests (+/- 45 days) The Plan of Treatment section includes [place] [facility] [place] [facility] This section includes future [...] 28, 2024 07:30 AM AMBULATORY - MEDICINE [facility] [facility] Jun 03, 2024 01:00 PM AMBULATORY - MEDICINE [facility] [place] [facility] Jun 08, 2024 03:00 PM AM[facility]ULATORY - [facility]AB [facility] Jun 11, 2024 08:00 AM AM[facility]ULATORY [facility]INE [facility] Jun 11, 2024 02:00 PM [facility] Jun 14, 2024 10:30 AM AMBULATORY - MEDICINE [facility] [place] [facility] Jun 15, 2024 10:00 AM AMBULATORY - REHAB [facility] Jun 22, 2024 11:30 AM AMBULATORY - MEDICINE [facility] [place] [facility] Jun 22, 2024 03:00 PM [facility] Jun 24, 2024 01:00 PM AM[facility]ULATORY [facility] MEDICINE [facility] [place] [facility] Jun 28, 2024 11:00 AM AMBULATORY - NONE [place] [facility] [place] [facility] Jul 07, 2024 01:00 PM AMBULATORY - [place]ICINE [place] [place] Jul 23, 2024 01:30 PM AMBULATORY - MEDICINE [place] [facility] [place] [facility] Aug 04, 2024 10:00 AM AMBULATORY - MEDICINE [facility] [place] [facility] Aug 25, 2024 10:30 AM AMBULATORY - MEDICINE [place] [facility] [place] [facility] Sep 21, 2024 01:30 PM AMBULATORY - MEDICINE [place] [place] Oct 05, 2024 11:00 AM AMBULATORY - MEDICINE [place] Active, Pending, and Scheduled Orders This section [...] Test Type Test Details Facility Name Apr 15, 2024 03:06 PM Consult Order COMMUNITY CARE-NEUROLOGY Cons [place] [facility] [place] [facility] Jun 01, 2024 11:54 AM Consult Order COMMUNITY CARE-[facility] MASSAGE THERAPY Cons [place] Mark[facility] Choice [place] Social History: Smoking Status (Most current) and Tobacco Use (All prior to encounter date) This section includes the most current, and the historical, smoking and tobacco- related health factors from the VA facility where the Encounter took place. Current Smoking Status This section includes the most current smoking, or tobacco-related health factor, from the VA facility where the Encounter took place. Date/Time Current Smoking Status Comment Odalis ity Apr 08, 2023 09:12 AM VA-TOBACCO NEVER USED [facility] Tobacco Use History This section includes a history of the smoking, or tobacco-related health factors, that were collected on or before the date of the Encounter. The data comes from the [place] facility where the Encounter took place. Date/Time Smoking Status/Tobacco Use Comment F acility Aug 09, 2021 09:20 AM VA-TOBACCO NEVER USED [facility] Encounter Notes: All associated encounter notes This section contains the clinical notes associated to the Encounter. Date/Time Encounter Note(s) Provider Source May 25, 2024 06:18 PM PHARMACY NOTE: LOCAL TITLE: PHARMACY CUSTOMER CARE MEDICATION RENEWAL STANDARD TITLE: PHARMACY NOTE DATE OF NOTE: MAY 25, 2024@18:18 ENTRY DATE: MAY 25, 2024@18:18:48 AUTHOR: TANIYA WILSON EXP COSIGNER: URGENCY: STATUS: COMPLETED Date: May Division: [place] Pt referred by Pharmacy Call Center for medication renewal: Non-controlled/maintenan ce medication Medications requested: [id number] POTASSIUM CITRATE 10MEQ SA Defer to primary care provider To be mailed. Please review and renew if appropriate. *This note was generated by [facility]. If you have any questions or need assistance, do not contact this author. Please refer all questions to your local, on-site pharmacy departments. /yunior/ Taniya Wilson CPhT Photographer Finish, MA/Pharmacy Customer Care Signed: 05/25/2024 18:19 Receipt Acknowledged By: 05/27/2024 12:00 /yunior/ BREANNA BAKER RN-BC REGISTERED NURSE 05/25/2024 18:29 /yunior/ JEAN CLAUDE MENDEZ CERTIFIED NURSE PRACTITIONER TANIYA WILSON [facility]
--- OUTSIDE RECORDS SUMMARY | 2024-06-29 19:08 | XMS_ITS | Encounter Summary ---
Author Name [facility] [place] Address [address] [place] [address] Care Team Providers Care Revit Drafter Name Role Phone ABDIRAHMAN LAKE Primary [...] BASIC FAMIL Y Jun 24, 2009 112 [id number] [phone] ABHILASH GARAY PATIENT ANTHEM BCBS [place] F[place] PREFERRED PROVIDER ORGANIZAT ION (PPO) FEP BASIC FAM Jun 24, 2009 112 [id number] [phone] ABHILASH GARAY PATIENT ANTHEM [place] F[place] PREFERRED PROVIDER ORGANIZAT ION (PPO) FEP BASIC FAM Jun 24, 2009 112 [id number] [phone] ABHILASH GARAY PATIENT [place] PREFERRED PROVIDER ORGANIZAT ION (PPO) FEP BASIC FAM Jun 24, 2009 112 [id number] [phone] ABHILASH GARAY PATIENT [place] PREFERRED PROVIDER ORGANIZAT ION (PPO) FEP BASIC FAM Jun 24, 2009 112 [id number] [phone] ABHILASH GARAY PATIENT [place]BS [place] F[place] PREFERRED PROVIDER ORGANIZAT ION (PPO) BASIC FAMIL Y Jun 24, 2009 112 [id number] [phone] ABHILASH GARAY PATIENT [place] FEP PREFERRED PROVIDER ORGANIZAT ION (PPO) BASIC FAMIL Y Jun 24, 2009 [id number] ABHILASH GARAY PATIENT [place] FEP PREFERRED PROVIDER ORGANIZAT ION (PPO) BASIC FAMIL Y Jun 24, 2009 112 [id number] ABHILASH GARAY PATIENT [place] DENTAL DENTAL INSURANCE BASIC Jul 12, 2009 DENTAL [id number] [phone] ABHILASH GARAY PATIENT [place] FEP PREFERRED PROVIDER ORGANIZAT ION (PPO) BASIC FAMIL Y Jun 24, 2009 112 [id number] [phone] ABHILASH GARAY PATIENT [place] FEP ([id number]) PRESCRIPT ION FEPRX Jun 24, 2009 [id number] [phone] ABHILASH GARAY PATIENT [place] FEP BCBS PRESCRIPT ION CAREM ARK FEPRX PLAN Nov 21, 2021 [id number] ABHILASH GARAY PATIENT [place] FEPRX PLAN PRESCRIPT ION CAREM ARK FEPRX Nov 21, 2021 [id number] ABHILASH GARAY PATIENT [place]-F EP BCBS PRESCRIPT ION FEP CAREM ARK Nov 21, 2021 [id number] ABHILASH GARAY PATIENT [place]-F EP BCBS PRESCRIPT ION FEP Jun 23, 2010 [id number] RUBI GARAYNETH PATIENT MEDICARE (WNR) MEDICARE (M) PART A Feb 22, 2020 PART A [id number] ABHILASH GARAY PATIENT MEDICARE (WN) MEDICARE (M) PART A Feb 22, 2020 PART A [id number] ABHILASH GARAY PATIENT MEDICARE (WNR) MEDICARE (M) PART A Feb 22, 2020 PART A [id number] ABHILASH GARAY PATIENT MEDICARE (WNR) MEDICARE (M) PART A Feb 22, 2020 PART A [id number] ABHILASH GARAY PATIENT MEDICARE (WNR) MEDICARE (M) PART A Feb 22, 2020 PART A [id number] [id number] [id number] ABHILASH GARAY PATIENT Selected Encounter This section includes the information on record at [place] for the Encounter. Date/Time Encounter Type Encounter Description Reason Pro vider Source Jun 08, 2024 01:05 PM Outpatient Encounter OPTOMETRY IHE Encounter Template Text not used by [place] Plan of Treatment: Future Appointments (+ 6 [...] Appointment Type Appointme nt Facility Name Jun 11, 2024 08:00 AM AMBULATORY - MEDICINE [facility] Jun 11, 2024 02:00 PM AMBULATORY - REHAB [facility] Jun 14, 2024 10:30 AM AMBULATORY - MEDICINE [place] [facility] Jun 15, 2024 10:00 AM AMBULATORY - RE[facility]AB [facility] Jun 22, 2024 11:30 AM AMBULATORY - MEDICINE [place] [facility] Jun 22, 2024 03:00 PM AMBULATORY - REHAB [facility]ICIN [facility] Jun 24, 2024 01:00 PM AMBULATORY - MEDICINE [place] C [place] [facility] Jun 28, 2024 11:00 AM AMBULATORY - NONE [place] [facility] Jul 07, 2024 01:00 PM AMBULATORY - MEDICINE [facility] Jul 23, 2024 01:30 PM AMBULATORY - MEDICINE [place] C [place] [facility] Aug 04, 2024 10:00 AM AMBULATORY - MEDICINE [place] [facility] Aug 25, 2024 10:30 AM AMBULATORY - MEDICINE [place] [facility] Sep 21, 2024 01:30 PM [...] Jun 01, 2024 11:54 AM Consult Order [facility] MASSAGE THERAPY Cons E/M Engineer's [facility] Social History: Smoking Status (Most current) and [...] Odalis mosleyy Apr 08, 2023 09:12 AM [place]-TOBACCO NEVER USED [facility] Tobacco Use History This section includes a history of the smoking, or tobacco-related health factors, that were collected on or before the date of the Encounter. The data comes from the [place] facility where the Encounter took place. Date/Time Smoking Status/Tobacco Use Comment F acility Aug 09, 2021 09:20 AM [place]-TOBACCO NEVER USED [facility] Encounter Notes: All associated encounter notes This section contains the clinical notes associated to the Encounter. Date/Time Encounter Note(s) Provider Source Jun 09, 2024 08:30 AM ADDENDUM: LOCAL TITLE: Addendum STANDARD TITLE: ADDENDUM DATE OF NOTE: JUN 09, 2024@08:30:52 ENTRY DATE: JUN 09, 2024@08:30:52 AUTHOR: DARIEL MYERS COSIGNER: URGENCY: STATUS: COMPLETED If patient's current eyewear are serving the purpose and he is comfortable wearing them then no he is not eligible. If they are damaged in any way where his vision or fitting is compromised and cannot be adjusted then he would be eligible. /yunior/ DARIEL MYERS OD STAFF AVIONICS ENGINEER Signed: 06/09/2024 08:32 Receipt Acknowledged By: 06/09/2024 09:09 /yunior/ AME BOSS OPTOMETRY TECH 06/09/2024 10:40 /yunior/ [facility] 06/09/2024 09:55 /yunior/ Shea Kumari Optometry Health Cd Reactor Operator ====== --- Original Document --- 06/08/24 TELEPHONE NOTE/SPECIALTY CLINIC: [place] called asking to see if he can get a second pair of eye glasses. Veterans phone number and address on file have been confirmed /yunior/ [facility] ENVIRONMENTAL INSPECTOR Signed: 06/08/2024 13:06 Receipt Acknowledged By: 06/09/2024 08:30 /yunior/ DARIEL MYERS OD STAFF AVIONICS ENGINEER 06/09/2024 09:09 /yunior/ AME BOSS OPTOMETRY TECH 06/09/2024 10:40 /yunior/ CINTHYA TOMLINSON [facility] 06/09/2024 09:55 /yunior/ Shea Kumari Optometry Health Cd Reactor Operator DARIEL MYERS [place] [facility] Jun 08, 2024 01:05 PM TELEPHONE ENCOUNTE R NOTE: LOCAL TITLE: TELEPHONE NOTE/SPECIALTY CLINIC STANDARD TITLE: TELEPHONE ENCOUNTER NOTE DATE OF NOTE: JUN 08, 2024@13:05 ENTRY DATE: JUN 08, 2024@13:05:42 AUTHOR: CHI GRACE EXP COSIGNER: URGENCY: STATUS: COMPLETED TELEPHONE NOTE/SPECIALTY CLINIC Has ADDENDA [place] called asking to see if he can get a second pair of eye glasses. Veterans phone number and address on file have been confirmed /yunior/ [facility] GRACE ENVIRONMENTAL INSPECTOR Signed: 06/08/2024 13:06 Receipt Acknowledged By: 06/09/2024 08:30 /yunior/ DARIEL MYERS OD STAFF AVIONICS ENGINEER 06/09/2024 09:09 /yunior/ AME LOPEZUTIER OPTOMETRY TECH 06/09/2024 10:40 /es/ [facility] 06/09/2024 09:55 /es/ Shea Kumari Optometry Health Cd Reactor Operator 06/09/2024 ADDENDUM STATUS: COMPLETED If patient's current eyewear are serving the purpose and he is comfortable wearing them then no he is not eligible. If they are damaged in any way where his vision or fitting is compromised and cannot be adjusted then he would be eligible. /yunior/ DARIEL MYERS OD STAFF AVIONICS ENGINEER Signed: 06/09/2024 08:32 Receipt Acknowledged By: 06/09/2024 09:09 /yunior/ AME BOUCHERIER OPTOMETRY TECH 06/09/2024 10:40 /es/ [facility] 06/09/2024 09:55 /es/ Shea Kumari Optometry Health Cd Reactor Operator [facility] [place] [facility]
--- OUTSIDE RECORDS SUMMARY | 2024-06-29 19:08 | XMS_ITS | Encounter Summary ---
Author Name [facility] [place] Address [address] [place] [address] Care Team Providers Care Musical Instrument Maker Name Role Phone ABDIRAHMAN LAKE Primary [...] BASIC FAMIL Y Jun 24, 2009 [id number] [phone] ABHILASH GARAY PATIENT ANTHEM BCBS [place] FEP PREFERRED PROVIDER ORGANIZAT ION (PPO) FEP BASIC FAM Jun 24, 2009 112 [id number] [phone] ABHILASH GARAY PATIENT ANTHEM [place]BS [place] PREFERRED PROVIDER ORGANIZAT ION (PPO) FEP BASIC FAM Jun 24, 2009 112 [id number] [phone] ABHILASH GARAY PATIENT [place] PREFERRED PROVIDER ORGANIZAT ION (PPO) FEP BASIC FAM Jun 24, 2009 112 [id number] [phone] ABHILASH GARAY PATIENT [place] PREFERRED PROVIDER ORGANIZAT ION (PPO) FEP BASIC FAM Jun 24, 2009 112 [id number] [phone] ABHILASH GARAY PATIENT [place] PREFERRED PROVIDER ORGANIZAT ION (PPO) BASIC FAMIL Y Jun 24, 2009 [id number] ABHILASH GARAY PATIENT [place] F[place] PREFERRED PROVIDER ORGANIZAT ION (PPO) BASIC FAMIL Y Jun 24, 2009 112 [id number] [phone] ABHILASH GARAY PATIENT [place] FEP PREFERRED PROVIDER ORGANIZAT ION (PPO) BASIC FAMIL Y Jun 24, 2009 112 [id number] [phone] ABHILASH GARAY PATIENT [place] FEP DENTAL DENTAL INSURANCE BASIC Jul 12, 2009 DENTAL [id number] ABHILASH GARAY PATIENT [place] FEP PREFERRED PROVIDER ORGANIZAT ION (PPO) BASIC FAMIL Y Jun 24, 2009 [id number] ABHILASH GARAY PATIENT [place] FEP ([id number]) PRESCRIPT ION FEPRX Jun 24, 2009 [id number] [phone] ABHILASH GARAY PATIENT [place] FEP BCBS PRESCRIPT ION CAREM ARK FEPRX PLAN Nov 21, 2021 [id number] ABHILASH GARAY PATIENT [place] FEPRX PLAN PRESCRIPT ION CAREM ARK FEPRX Nov 21, 2021 [id number] ABHILASH GARAY PATIENT [place]-F EP BCBS PRESCRIPT ION FEP CAREM ARK Nov 21, 2021 [id number] ABHILASH GARAY PATIENT [place]-F EP BCBS PRESCRIPT ION FEP Jun 23, 2010 [id number] RUBI GARAYNETH PATIENT MEDICARE (WN) MEDICARE () PART A Feb 22, 2020 PART A [id number] ABHILASH GARAY PATIENT MEDICARE (WN) MEDICARE () PART A Feb 22, 2020 PART A [id number] ABHILASH GARAY PATIENT MEDICARE (WNR) MEDICARE (M) PART A Feb 22, 2020 PART A [id number] ABHILASH GARAY PATIENT MEDICARE (WNR) MEDICARE (M) PART A Feb 22, 2020 PART A [id number] [id number] ABHILASH GARAY PATIENT MEDICARE (WNR) MEDICARE (M) PART A Feb 22, 2020 PART A [id number] [id number] [phone] [id number] ABHILASH GARAY PATIENT Selected Encounter This section includes the information on record at [place] for the Encounter. Date/Time Encounter Type Encounter Description Reason Provider Source Jun 03, 2024 01:00 PM EXERCISE CLASS HEALTH/WELLBEING SRVS ICD-10-CM Y93.42 Activity, PAT Yoder [place] IHE Encounter Template Text not used by [place] Assessments - Encounter Diagnoses This section includes the primary and secondary diagnoses documented for the Encounter. Date/Time Primary/Secondary Diagnosis Diagnosis Name Provider Source Jun 07, 2024 01:38 PM PRIMARY Activity, PEDRO Yoder [facility] [place] [facility] Plan of Treatment: Future Appointments (+ [...] Appointment Type Appointme nt Facility Name Jun 08, 2024 03:00 PM AMBULATORY - REHAB MEDICIN [place] Jun 11, 2024 08:00 AM AMBULATORY - MEDICINE [facility] Jun 11, 2024 02:00 PM AMBULATORY - REHAB MEDICIN E [place] Jun 14, 2024 10:30 AM AMBULATORY - MEDICINE [place] [facility] Jun 15, 2024 10:00 AM AMBULATORY - REHAB MEDICIN [place] Jun 22, 2024 11:30 AM AMBULATORY - MEDICINE [facility] [place] [facility] Jun 22, 2024 03:00 PM AMBULATORY - REHAB MEDICIN E [place] Jun 24, 2024 01:00 PM AMBULATORY - MEDICINE [place] [facility] Jun 28, 2024 11:00 AM AMBULATORY - NONE [place] [facility] Jul 07, 2024 01:00 PM AMBULATORY - MEDICINE [place] [place] Jul 23, 2024 01:30 PM AMBULATORY - MEDICINE [place] [facility] Aug 04, 2024 10:00 AM AMBULATORY - MEDICINE [place] [facility] Aug 25, 2024 10:30 AM AMBULATORY - MEDICINE [place] [facility] Sep 21, 2024 01:30 PM AMBULATORY - MEDICINE [place] [place] Oct 05, 2024 11:00 AM AM[facility]ATORY [facility] MEDICINE [facility] [...] of theEncounter. The data comes from all [place] treatment facilities. Test Date/Time Test Type Test Details Facility Name Jun 01, 2024 11:54 AM Consult Order [facility] MASSAGE THERAPY Cons Chicken Hatchery Helper's Choice [place] Social History: Smoking Status (Most current) and [...] 08, 2023 09:12 AM VA-TOBACCO NEVER USED [facility] Tobacco Use History This section includes a history of the smoking, or tobacco-related health factors, that were collected on or before the date of the Encounter. The data comes from the [place] facility where the Encounter took place. Date/Time Smoking Status/Tobacco Use Comment F acility Aug 09, 2021 09:20 AM [facility] Encounter Notes: All associated encounter notes This section contains the clinical notes associated to the Encounter. Date/Time Encounter Note(s) Provider Source Jun 03, 2024 01:00 PM RECREATIONAL THERA PY NOTE: LOCAL TITLE: YOGA WELLBEING STANDARD TITLE: RECREATIONAL THERAPY NOTE DATE OF NOTE: JUN 03, 2024@13:00 ENTRY DATE: JUN 07, 2024@07:45:36 AUTHOR: MARY KATE MOORE COSIGNER: URGENCY: STATUS: [...] triangle pose, wide leg forward bend variations, [place] 2, extended side angle pose, [place] 1, plank, cobra, locust, downward facing dog, wisdom pose, contralateral limb raises, head to knee pose, bridge, reclined twist, knees to chest; Systematic Relaxation; and Gratitude. Modifications were geared toward the 's individual needs and preferences. [place] was one of five participants in Group Yoga, fully engaging in all the postures offered and modifying according to individual needs. [place] used yoga blocks and a yoga belt for support as needed and used breath as a tool to enhance practice. [place] will return to class as personal scheduling allows. /yunior/ ROXANNA [id number] Black Top Spreader Machine Operator Signed: 06/07/2024 07:48 MARY KATE MOORE [place] CN[facility]
--- OUTSIDE RECORDS SUMMARY | 2024-06-29 19:08 | XMS_ITS | Encounter Summary ---
Author Name [facility] [place] Address [address] [place] [address] Care Team Providers Care Consignee Name Role Phone ABDIRAHMAN LAKE Primary Care [...] Member ID Insurance Provider's Telephone Number Policy Blankensihp's Name Patient's Relationship to Policy Blankenship ANTHEM BCBS [place] FEDERAL PREFERRED PROVIDER ORGANIZAT ION (PPO) BASIC FAMIL Y Jun 24, 2009 [id number] [phone] ABHILASH GARAY PATIENT [place] PREFERRED PROVIDER ORGANIZAT ION (PPO) FEP BASIC FAM Jun 24, 2009 112 [id number] [phone] ABHILASH GARAY PATIENT AN[place]M [place] PREFERRED PROVIDER ORGANIZAT ION (PPO) FEP BASIC FAM Jun 24, 2009 112 [id number] [phone] ABHILASH GARAY PATIENT [place] PREFERRED PROVIDER ORGANIZAT ION (PPO) FEP BASIC FAM Jun 24, 2009 112 [id number] [phone] ABHILASH GARAY PATIENT [place] PREFERRED PROVIDER ORGANIZAT ION (PPO) FEP BASIC FAM Jun 24, 2009 112 [id number] [phone] ABHILASH GARAY PATIENT [place]BS [place] PREFERRED PROVIDER ORGANIZAT ION (PPO) BASIC FAMIL Y Jun 24, 2009 [id number] ABHILASH GARAY PATIENT [place] PREFERRED PROVIDER ORGANIZAT ION (PPO) BASIC FAMIL Y Jun 24, 2009 [id number] ABHILASH GARAY PATIENT [place] PREFERRED PROVIDER ORGANIZAT ION (PPO) BASIC FAMIL Y Jun 24, 2009 112 [id number] ABHILASH GARAY PATIENT [place] F[place] DENTAL DENTAL INSURANCE BASIC Jul 12, 2009 DENTAL [id number] ABHILASH GARAY PATIENT [place] F[place] PREFERRED PROVIDER ORGANIZAT ION (PPO) BASIC FAMIL Y Jun 24, 2009 [id number] ABHILASH GARAY PATIENT [employer] FEP ([id number]) PRESCRIPT ION FEPRX Jun 24, 2009 [id number] [phone] ABHILASH GARAY PATIENT [place] FEP BCBS PRESCRIPT ION CAREM ARK FEPRX PLAN Nov 21, 2021 [id number] ABHILASH GARAY PATIENT [place] FEPRX PLAN PRESCRIPT ION CAREM ARK FEPRX Nov 21, 2021 [id number] ABHILASH GARAY PATIENT [place]-F EP BCBS PRESCRIPT ION FEP CAREM ARK Nov 21, 2021 [id number] ABHILASH GARAY PATIENT [place]-F EP BCBS PRESCRIPT ION FEP Jun 23, 2010 [id number] ABHILASH GARAY PATIENT MEDICARE (WN) MEDICARE () PART A Feb 22, 2020 PART A [id number] ABHILASH GARAY PATIENT MEDICARE ([facility] MEDICARE () PART A Feb 22, 2020 PART A [id number] ABHILASH GARAY PATIENT MEDICARE (WNR) MEDICARE (M) PART A Feb 22, 2020 PART A [id number] ABHILASH GARAY PATIENT MEDICARE (WNR) MEDICARE (M) PART A Feb 22, 2020 PART A [id number] ABHILASH GARAY PATIENT MEDICARE (WNR) MEDICARE (M) PART A Feb 22, 2020 PART A [id number] ABHILASH GARAY PATIENT Selected Encounter This section includes the information on record at [place] for the Encounter. Date/Time Encounter Type Encounter Description Reason Pro vider Source May 21, 2024 02:07 PM Outpatient Encounter TELEPHONE/GERIATRICS IHE Encounter Template Text not used by [place] Plan of Treatment: Future Appointments (+ 6 months) and Future Tests (+/- 45 days) The Plan of Treatment section includes future care activities for the patient [facility] [place] [facility] This section includes future appointments [...] 07:30 AM AMBULATORY - MEDIC[facility] [place] [facility] Jun 03, 2024 01:00 PM AMBULATORY - MEDICINE [facility] [place] [facility] Jun 08, 2024 03:00 PM AMBULATORY - REHAB MEDICIN [facility] Jun 11, 2024 08:00 AM AMBULATORY - MEDICINE [facility] Jun 11, 2024 02:00 PM AMBULATORY - REHAB MEDICIN [facility] Jun 14, 2024 10:30 AM AMBULATORY - MEDICINE [place] [facility] Jun 15, 2024 10:00 AM AMBULATORY - REHAB MEDICIN [facility] Jun 22, 2024 11:30 AM AMBULATORY - MEDICINE [facility] [place] [place] [facility] Jun 22, 2024 03:00 [facility] Jun 24, 2024 01:00 PM AMBULATORY - MEDICINE [place] [facility] [place] [facility] Jun 28, 2024 11:00 AM AMBULATORY - NONE [place] [facility] Jul 07, 2024 01:00 PM AMBULATORY - MEDICINE [place] [place] Jul 23, 2024 01:30 PM AMBULATORY - MEDICINE [place] [facility] [place] [facility] Aug 04, 2024 10:00 AM AMBULATORY - MEDICINE [place] [facility] [place] [facility] Aug 25, 2024 10:30 AM AMBULATORY - MEDICINE [place] [facility] [place] [facility] Sep 21, 2024 01:30 PM [...] of theEncounter. The data comes from all [place] treatment facilities. Test Date/Time Test Type Test Details Facility Name Apr 08, 2024 12:00 AM Laboratory - Chemistry Order URINALYSIS URINE SP [place] Apr 15, 2024 03:06 PM Consult Order COMM[facility]ITY CARE-NEUROLOGY Cons Roll Forger's Choice [place] [facility] Jun 01, 2024 11:54 AM Consult Order [facility] MASSAGE THERAPY Cons Roll Forger's Choice [place] Social History: Smoking Status (Most current) and [...] 08, 2023 09:12 AM VA-TOBACCO NEVER USED [facility] Tobacco Use History This section includes a history of the smoking, or tobacco-related health factors, that were collected on or before the date of the Encounter. The data comes from the [place] facility where the Encounter took place. Date/Time Smoking Status/Tobacco Use Comment F acility Aug 09, 2021 09:20 AM [facility]CO [facility] [place] [facility] Encounter Notes: All associated encounter notes This section contains the clinical notes associated to the Encounter. Date/Time Encounter Note(s) Provider Source May 21, 2024 02:07 PM GERIATRIC MEDICINE NOTE: LOCAL TITLE: GEROFIT DISCONTINUE NOTE STANDARD TITLE: GERIATRIC MEDICINE NOTE DATE OF NOTE: MAY 21, 2024@14:07 ENTRY DATE: MAY 21, 2024@14:07:45 AUTHOR: MADISON COLLINS EXP COSIGNER: URGENCY: STATUS: COMPLETED GEROFIT DISCONTINUE NOTE This has not attended Gerofit since 02/27/24. He has received calls and a letter encouraging participation. Patient has not responded. Per Gerofit protocol he has been moved to inactive status and is no longer considered an active participant. He will require a new consult for consideration for readmission. /yunior/ MADISON COLLINS, PT, DPT PHYSICAL THERAPIST Signed: 05/21/2024 14:08 MADISON COLLINS [facility]
--- OUTSIDE RECORDS SUMMARY | 2024-06-29 19:08 | XMS_ITS | Encounter Summary ---
Author Name [facility] [place] Address [address] [place] [address] Care Team Providers Care Vending Machine Refiller Name Role Phone ABDIRAHMAN LAKE Primary Care [...] BASIC FAMIL Y Jun 24, 2009 [id number] [phone] ABHILASH GARAY PATIENT [place]THE[place] PREFERRED PROVIDER ORGANIZAT ION (PPO) FEP BASIC FAM Jun 24, 2009 [id number] [phone] ABHILASH GARAY PATIENT ANTHEM [place]BS [place] F[place] PREFERRED PROVIDER ORGANIZAT ION (PPO) FEP BASIC FAM Jun 24, 2009 [id number] [phone] ABHILASH GARAY PATIENT [place] PREFERRED PROVIDER ORGANIZAT ION (PPO) FEP BASIC FAM Jun 24, 2009 112 [id number] [phone] ABHILASH GARAY PATIENT [place] PREFERRED PROVIDER ORGANIZAT ION (PPO) FEP BASIC FAM Jun 24, 2009 112 [id number] [phone] ABHILASH GARAY PATIENT [place]BS [place] F[place] PREFERRED PROVIDER ORGANIZAT ION (PPO) BASIC FAMIL Y Jun 24, 2009 [id number] ABHILASH GARAY PATIENT [place] PREFERRED PROVIDER ORGANIZAT ION (PPO) BASIC FAMIL Y Jun 24, 2009 [id number] ABHILASH GARAY PATIENT [place] PREFERRED PROVIDER ORGANIZAT ION (PPO) BASIC FAMIL Y Jun 24, 2009 112 [id number] [phone] ABHILASH GARAY PATIENT [place] F[place] DENTAL DENTAL INSURANCE BASIC Jul 12, 2009 DENTAL [id number] [phone] ABHILASH GARAY PATIENT [place] PREFERRED PROVIDER ORGANIZAT ION (PPO) BASIC FAMIL Y Jun 24, 2009 [id number] [phone] ABHILASH GAARY PATIENT [employer] FEP ([id number]) PRESCRIPT ION FEPRX Jun 24, 2009 [id number] [phone] ABHILASH GARAY PATIENT [place] FEP BCBS PRESCRIPT ION CAREM ARK FEPRX PLAN Nov 21, 2021 [id number] ABHILASH GARAY PATIENT [employer] FEPRX PLAN PRESCRIPT ION CAREM ARK FEPRX Nov 21, 2021 [id number] ABHILASH GARAY PATIENT [employer]-F EP BCBS PRESCRIPT ION FEP CAREM ARK Nov 21, 2021 [id number] ABHILASH GARAY PATIENT [employer]-F EP BCBS PRESCRIPT ION FEP Jun 23, 2010 [id number] ABHILASH GARAY PATIENT MEDICARE (WN) MEDICARE () PART A Feb 22, 2020 PART A [id number] ABHILASH GARAY PATIENT MEDICARE ([facility]) MEDICARE () PART A Feb 22, 2020 PART A [id number] ABHILASH GARYA PATIENT MEDICARE (WNR) MEDICARE (M) PART A Feb 22, 2020 PART A [id number] [phone] ABHILASH GARAY PATIENT MEDICARE (WNR) MEDICARE (M) PART A Feb 22, 2020 PART A [id number] ABHILASH GARAY PATIENT MEDICARE (WNR) MEDICARE (M) PART A Feb 22, 2020 PART A [id number] [id number] [phone] ABHILASH GARAY PATIENT Selected Encounter This section includes the information on record at [place] for the Encounter. Date/Time Encounter Type Encounter Description Reason Pro vider Source May 06, 2024 12:00 AM Outpatient Encounter EVENT (HISTORICAL) IHE Encounter Template Text not used by [place] Plan of Treatment: Future Appointments (+ 6 months) and Future Tests (+/- 45 days) The Plan of Treatment section includes future care activities for the patient [facility] [place] [facility] This section includes future appointments [...] 2024 01:00 PM AMBULATORY - REHAB MEDICIN [facility] May 28, 2024 07:30 AM AMBULATORY - MEDICINE [place] [facility] Jun 03, 2024 01:00 PM AMBULATORY - MEDICINE [place] C [place] [facility] Jun 08, 2024 03:00 PM AMBULATORY - REHAB MEDICIN [facility] Jun 11, 2024 08:00 AM AMBULATORY - MEDICINE [facility] Jun 11, 2024 02:00 PM AMBULATORY - REHAB MEDICIN [facility] Jun 14, 2024 10:30 AM AMBULATORY - MEDICINE [place] C [place] [facility] Jun 15, 2024 10:00 AM AMBULATORY - REHAB MEDICIN [facility] Jun 22, 2024 11:30 AM AMBULATORY - MEDICINE [facility] [place] [facility] Jun 22, 2024 03:00 PM AMBULATORY - REHAB MEDICIN [facility] [place] Jun 24, 2024 01:00 PM AMBULATORY - MEDICINE [place] C [place] [facility] Jun 28, 2024 11:00 AM AMBULATORY - NONE [place] [facility] Jul 07, 2024 01:00 PM AMBULATORY - MEDICINE [place] Jul 23, 2024 01:30 PM AMBULATORY - MEDICINE [place] C [place] [facility] Aug 04, 2024 10:00 AM AMBULATORY - MEDICINE [place] [facility] [place] [facility] Aug 25, 2024 10:30 AM AMBULATORY - MEDICINE [place] C [place] [facility] Sep 21, 2024 01:30 PM AMBULATORY [...] Laboratory - Chemistry Order URINALYSIS URINE SP [place] Apr 15, 2024 03:06 PM Consult Order [facility]-NEUROLOGY Cons Microbiology Lab Assistant's Choice [place] [facility] Jun 01, 2024 11:54 AM Consult Order [facility] MASSAGE THERAPY Cons Microbiology Lab Assistant's Choice [place] Lab Results: +/- 30 days of the [...] Comment Apr 15, 2024 11:16 AM [facility] CPK Specimen Type: SERUM No comment entered. Ordering Provider: JOHN PAUL DENNISON Report Released Date/Time: Apr 15, 2024 10:55 AM Reporting Lab: [place] [facility] [address] [address] Performing Lab: [facility] [address] [place] [address] CPK 67 U/L 30-200 Social History: Smoking [...] 08, 2023 09:12 AM VA-TOBACCO NEVER USED [facility] Tobacco Use History This section includes a history of the smoking, or tobacco-related health factors, that were collected on or before the date of the Encounter. The data comes from the [place] facility where the Encounter took place. Date/Time Smoking Status/Tobacco Use Comment F acility Aug 09, 2021 09:20 AM VA-TOBACCO NEVER USED [facility] Encounter Notes: All associated encounter notes This section contains the clinical notes associated to the Encounter. Date/Time Encounter Note(s) Provider Source May 06, 2024 12:00 AM NONVA NOTE: LOCAL TITLE: NON-VA OUTPATIENT NOTES STANDARD TITLE: NONVA NOTE DATE OF NOTE: MAY 06, 2024 ENTRY DATE: JUN 06, 2024@05:59:58 AUTHOR: JORDAN TANNER MA EXP COSIGNER: URGENCY: STATUS: COMPLETED VistA Imaging - Scanned Document SCANNED DOCUMENT SIGNATURE NOT REQUIRED Electronically Filed: 06/06/2024 by: JORDAN TANNER [employer] JORDAN TANNER [facility]
--- OUTSIDE RECORDS SUMMARY | 2024-06-29 19:08 | XMS_ITS | Encounter Summary ---
Author Name [facility] [place] Address [address] [place] [address] Care Team Providers Care Solid Waste Collection Worker Name Role Phone ABDIRAHMAN LAKE Primary [...] BASIC FAMIL Y Jun 24, 2009 [id number] [phone] ABHILASH GARAY PATIENT ANTHEM BCBS [place] F[place] PREFERRED PROVIDER ORGANIZAT ION (PPO) FEP BASIC FAM Jun 24, 2009 112 [id number] [phone] ABHILASH GARAY PATIENT ANTHEM BCBS [place] FEP PREFERRED PROVIDER ORGANIZAT ION (PPO) FEP BASIC FAM Jun 24, 2009 112 [id number] [phone] ABHILASH GARAY PATIENT [place] PREFERRED PROVIDER ORGANIZAT ION (PPO) FEP BASIC FAM Jun 24, 2009 112 [id number] [phone] ABHILASH GARAY PATIENT [place] PREFERRED PROVIDER ORGANIZAT ION (PPO) FEP BASIC FAM Jun 24, 2009 112 [id number] [phone] RUBI GARAYNETH PATIENT [place]BS [place] PREFERRED PROVIDER ORGANIZAT ION (PPO) BASIC FAMIL Y Jun 24, 2009 [id number] RUBI GARAYNETH PATIENT [place] F[place] PREFERRED PROVIDER ORGANIZAT ION (PPO) BASIC FAMIL Y Jun 24, 2009 [id number] RUBI GARAYNETH PATIENT [place] PREFERRED PROVIDER ORGANIZAT ION (PPO) BASIC FAMIL Y Jun 24, 2009 [id number] [phone] RUBI GARAYNETH PATIENT [place] F[place] DENTAL DENTAL INSURANCE BASIC Jul 12, 2009 DENTAL [id number] DEJAHDANIKARUBI ACEVESNETH PATIENT [place] F[place] PREFERRED PROVIDER ORGANIZAT ION (PPO) BASIC FAMIL Y Jun 24, 2009 [id number] ABHILASH GARAY PATIENT [place] FEP ([id number]) PRESCRIPT ION FEPRX Jun 24, 2009 [id number] [phone] ABHILASH GARAY PATIENT [place] FEP BCBS PRESCRIPT ION CAREM ARK FEPRX PLAN Nov 21, 2021 [id number] ABHILASH GARAY PATIENT [place] FEPRX PLAN PRESCRIPT ION CAREM ARK FEPRX Nov 21, 2021 [id number] [phone] ABHILASH GARAY PATIENT [place]-F EP BCBS PRESCRIPT ION FEP CAREM ARK Nov 21, 2021 [id number] ABHILASH GARAY PATIENT [place]-F EP BCBS PRESCRIPT ION FEP Jun 23, 2010 [id number] RUBI GARAYNETH PATIENT MEDICARE ([facility]) MEDICARE () PART A Feb 22, 2020 PART A [id number] ABHILASH GARAY PATIENT MEDICARE (WNR) MEDICARE (M) PART A Feb 22, 2020 PART A [id number] [phone] ABHILASH GARAY PATIENT MEDICARE (WNR) MEDICARE (M) PART A Feb 22, 2020 PART A [id number] [id number] ABHILASH GARAY PATIENT MEDICARE (WNR) MEDICARE (M) PART A Feb 22, 2020 PART A [id number] [id number] ABHILASH GARAY PATIENT MEDICARE (WNR) MEDICARE (M) PART A Feb 22, 2020 PART A [id number] ABHILASH GARAY PATIENT Selected Encounter This section includes the information on record at [place] for the Encounter. Date/Time Encounter Type Encounter Description Reason Pro vider Source May 31, 2024 03:34 PM Outpatient Encounter ADMIN PAT ACTIVTIES (MASNONCT) IHE Encounter Template Text not used by [place] Plan of Treatment: Future Appointments (+ 6 months) and Future Tests (+/- 45 days) The Plan of Treatment section includes future care activities for the patient from all [place] [facility]. This section includes future appointments and [...] 03, 2024 01:00 PM AMBULATORY - MEDICINE [facility] [place] [facility] Jun 08, 2024 03:00 PM AMBULATORY - REHAB MEDICIN [facility] Jun 11, 2024 08:00 AM AMBULATORY - MEDICINE [facility] Jun 11, 2024 02:00 PM AMBULATORY - REHAB MEDICIN [facility] Jun 14, 2024 10:30 AM AMBULATORY - MEDICINE [facility] [place] [facility] Jun 15, 2024 10:00 [facility] Jun 22, 2024 11:30 AM AMBULATORY - MEDICINE [facility] [place] [facility] Jun 22, 2024 03:00 PM [facility] Jun 24, 2024 01:00 PM AMBULATORY - MEDICINE [facility] [place] [facility] Jun 28, 2024 11:00 AM AMBULATORY - NONE [place] [facility] Jul 07, 2024 01:00 PM AMBULATORY - MEDICINE [place] Jul 23, 2024 01:30 PM AMBULATORY - MEDICINE [place] C [place] [facility] Aug 04, 2024 10:00 AM AMBULATORY - MEDICINE [place] C [place] [facility] Aug 25, 2024 10:30 AM AMBULATORY - MEDICINE [place] C [place] [facility] Sep 21, 2024 01:30 PM AMBULATORY - MEDICINE [place] Oct 05, 2024 11:00 AM AMBULATORY - MEDICINE [facility] Active, Pending, and Scheduled Orders This [...] Jun 01, 2024 11:54 AM Consult Order [facility] MASSAGE THERAPY Cons Claims Manager's [facility] Social History: Smoking Status (Most current) and [...] 08, 2023 09:12 AM VA-TOBACCO NEVER USED [facility] Tobacco Use History This section includes a history of the smoking, or tobacco-related health factors, that were collected on or before the date of the Encounter. The data comes from the [place] facility where the Encounter took place. Date/Time Smoking Status/Tobacco Use Comment Gilberto [place] Aug 09, 2021 09:20 AM [place]-TOBACCO [facility] Encounter Notes: All associated encounter notes This section contains the clinical notes associated to the Encounter. Date/Time Encounter Note(s) Provider Source May 31, 2024 03:34 PM ADMINISTRATIVE NOTE: LOCAL TITLE: CCC: SCHEDULING ADMINISTRATION STANDARD TITLE: ADMINISTRATIVE NOTE DATE OF NOTE: MAY 31, 2024@15:34:24 ENTRY DATE: MAY 31, 2024@15:34:24 AUTHOR: SULMA HALE EXP COSIGNER: URGENCY: STATUS: COMPLETED CCC: SCHEDULING ADMINISTRATION Has ADDENDA Patient Demographics Patient Name: ABHILASH GARAY Patient Primary Phone: [phone] Patient Primary Address: [address] [place] [id number] Patient : 1955 Patient Age: 69 Caller/Recipient Relation to Patient: Self Caller Name: ABHILASH GARAY Administrative Administrative Note Reason: Community Care / [place] Act Administrative Note Comments: [place] requesting renewal of community care massage therapy referral. Please call [place] to assist. IMPORTANT: This note was created by [facility] Clinical Contact Center staff. Please do not alert the staff member by adding them as a signer for future communications. Alerts are not monitored by this user. /yunior/ SULMA CHÁVEZ 1 [facility] AMSA Signed: 05/31/2024 15:34 Receipt Acknowledged By: 06/05/2024 14:25 /es/ STEF BAKERN RN-BC REGISTERED NURSE 06/01/2024 11:52 /yunior/ EUGENIE SALVADOR LPN Licensed Practical Nurse 06/01/2024 ADDENDUM STATUS: COMPLETED Renewed MASSAGE THERAPY consult help for provider to sign. /oriana SALVADOR LPN Licensed Practical Nurse Signed: 06/01/2024 11:53 [facility]UL[facility]ALE [facility]
--- OUTSIDE RECORDS SUMMARY | 2024-06-29 19:08 | XMS_ITS | Encounter Summary ---
Author Name [place] Address [address] [place] [address] Care Team Providers Care Corporate Security Manager Name Role Phone ABDIRAHMAN LAKE Primary [...] BASIC FAMIL Y Jun 24, 2009 [id number] [phone] ABHILASH GARAY PATIENT ANTHEM BCBS [place] FEP PREFERRED PROVIDER ORGANIZAT ION (PPO) FEP BASIC FAM Jun 24, 2009 [id number] [phone] ABHILASH GARAY PATIENT ANTHEM BCBS [place] FEP PREFERRED PROVIDER ORGANIZAT ION (PPO) FEP BASIC FAM Jun 24, 2009 112 [id number] [phone] ABHILASH GARAY PATIENT [place]M [place] PREFERRED PROVIDER ORGANIZAT ION (PPO) FEP BASIC FAM Jun 24, 2009 112 [id number] [phone] ABHILASH GARAY PATIENT [place]BS [place] FEP PREFERRED PROVIDER ORGANIZAT ION (PPO) FEP BASIC FAM Jun 24, 2009 112 [id number] [phone] ABHILASH GARAY PATIENT BCBS [place] FEP PREFERRED PROVIDER ORGANIZAT ION (PPO) BASIC FAMIL Y Jun 24, 2009 [id number] 62 ABHILASH GARAY PATIENT [place] PREFERRED PROVIDER ORGANIZAT ION (PPO) BASIC FAMIL Y Jun 24, 2009 [id number] ABHILASH GARAY PATIENT [place] FEP PREFERRED PROVIDER ORGANIZAT ION (PPO) BASIC FAMIL Y Jun 24, 2009 [id number] ABHILASH GARAY PATIENT [place] FEP DENTAL DENTAL INSURANCE BASIC Jul 12, 2009 DENTAL [id number] 62 ABHILASH GARAY PATIENT [place] FEP PREFERRED PROVIDER ORGANIZAT ION (PPO) BASIC FAMIL Y Jun 24, 2009 [id number] [phone] ABHILASH GARAY PATIENT [place] FEP ([id number]) PRESCRIPT ION FEPRX Jun 24, 2009 [id number] [phone] ABHILASH GARAY PATIENT [place] FEP BCBS PRESCRIPT ION CAREM ARK FEPRX PLAN Nov 21, 2021 [id number] ABHILASH GARAY PATIENT [place] FEPRX PLAN PRESCRIPT ION CAREM ARK FEPRX Nov 21, 2021 [id number] ABHILASH GARAY PATIENT [place]-F EP BCBS PRESCRIPT ION FEP CAREM ARK Nov 21, 2021 [id number] ABHILASH GARAY PATIENT [place]-F EP BCBS PRESCRIPT ION FEP Jun 23, 2010 [id number] ABHILASH GARAY PATIENT MEDICARE (WN) MEDICARE () PART A Feb 22, 2020 PART A [id number] ABHILASH GARAY PATIENT MEDICARE ([facility]) MEDICARE () PART A Feb 22, 2020 PART A [id number] [phone] ABHILASH GARAY PATIENT MEDICARE (WNR) MEDICARE (M) PART A Feb 22, 2020 PART A [id number] ABHILASH GARAY PATIENT MEDICARE (WNR) MEDICARE (M) PART A Feb 22, 2020 PART A [id number] [phone] ABHILASH GARAY PATIENT MEDICARE (WNR) MEDICARE (M) PART A Feb 22, 2020 PART A [id number] ABHILASH GARAY PATIENT Selected Encounter This section includes the information on [place] at [place] for the Encounter. Date/Time Encounter Type Encounter Description Reason Pro vider Source May 24, 2024 01:05 PM Outpatient Encounter PRIMARY CARE/MEDICINE IHE Encounter Template Text not used by [place] Plan of Treatment: Future Appointments (+ 6 months) and Future Tests (+/- 45 days) The Plan of Treatment section includes future care activities for the patient from all [place] [facility]. This section [...] 28, 2024 07:30 AM AMBULATORY - MEDICINE [facility] [place] [facility] Jun 03, 2024 01:00 PM AMBULATORY - MEDICINE [facility] [place] [place] [facility] Jun 08, 2024 03:00 PM [facility]ULATORY - [facility]AB [facility] Jun 11, 2024 08:00 AM AMBULATORY - MEDICINE [facility] Jun 11, 2024 02:00 PM AMBULATORY - RE[facility]AB [facility] Jun 14, 2024 10:30 AM AM[place]ULATORY [place] [facility] Jun 15, 2024 10:00 AM AMBULATORY - REHAB [facility] Jun 22, 2024 11:30 AM AM[place]ATORY [place] [facility] Jun 22, 2024 03:00 [facility] 24, [facility]24 01:00 PM [facility]UL[facility] - MEDICINE [place] [facility] [place] [facility] Jun 28, 2024 11:00 AM AMBULATORY - NONE [place] [facility] [place] [facility] Jul 07, 2024 01:00 PM AMBULATORY - MEDICINE [place] Jul 23, 2024 01:30 PM AMBULATORY - MEDICINE [facility] [place] [facility] Aug 04, 2024 10:00 AM AMBULATORY - MEDICINE [facility] [place] [facility] Aug 25, 2024 10:30 AM AMBULATORY - MEDICINE [facility] [place] [facility] Sep 21, 2024 01:30 PM AMBULATORY [...] of theEncounter. The data comes from all [place] treatment facilities. Test Date/Time Test Type Test Details Facility Name Apr 15, 2024 03:06 PM Consult Order [facility]ITY [facility]-NEUROLOGY Cons [employer] [place] [facility] Jun 01, 2024 11:54 AM Consult Order [facility] MASSAGE THERAPY Cons [employer] [facility] [place] Social History: Smoking Status (Most current) and [...] 08, 2023 09:12 AM [facility] Tobacco Use History This section includes a history of the smoking, or tobacco-related health factors, that were collected on or before the date of the Encounter. The data comes from the [place] facility where the Encounter took place. Date/Time Smoking Status/Tobacco Use Comment F acility Aug 09, 2021 09:20 AM [facility] Encounter Notes: All associated encounter notes This section contains the clinical notes associated to the Encounter. Date/Time Encounter Note(s) Provider Source May 24, 2024 01:05 PM ADMINISTRATIVE NOT E: LOCAL TITLE: ADMINISTRATIVE NOTE STANDARD TITLE: ADMINISTRATIVE NOTE DATE OF NOTE: MAY 24, 2024@13:05 ENTRY DATE: MAY 24, 2024@13:05:49 AUTHOR: GE PEREIRA COSIGNER: URGENCY: STATUS: COMPLETED ADMINISTRATIVE NOTE Has ADDENDA Please contact the patient and schedule a aabc-rn-cziq or VVC visit with his PCP. Thank you /yunior/ GE PEREIRA NP NURSE PRACTITIONER Signed: 05/24/2024 13:06 Receipt Acknowledged By: 05/25/2024 15:17 /yunior/ LATANYA ALATORRE ADVANCED DECORATIVE ENGRAVER APPRENTICE 05/24/2024 ADDENDUM STATUS: COMPLETED LM ON VM TO SCHEDULE AN APPT WITH NEW PROVIDER. /oriana ALATORRE ADVANCED DECORATIVE ENGRAVER APPRENTICE Signed: 05/24/2024 13:32 05/25/2024 ADDENDUM STATUS: COMPLETED APPT SCHEDULED FOR 07/07 @ 1 PM /oriana ALATORRE ADVANCED DECORATIVE ENGRAVER APPRENTICE Signed: 05/25/2024 15:17 GE PEREIRA [place]
--- OUTSIDE RECORDS SUMMARY | 2024-06-29 19:08 | XMS_ITS | Encounter Summary ---
Author Name [facility] [place] [facility] [place] Address [address] [place] [address] Care Team Providers Care Drawstring Knotter Name Role Phone ABDIRAHMAN LAKE Primary Care [...] BASIC FAMIL Y Jun 24, 2009 [id number] [phone] ABHILASH GARAY PATIENT ANTHEM BCBS [place] F[place] PREFERRED PROVIDER ORGANIZAT ION (PPO) FEP BASIC FAM Jun 24, 2009 [id number] [phone] ABHILASH GARAY PATIENT ANTHEM BCBS [place] F[place] PREFERRED PROVIDER ORGANIZAT ION (PPO) FEP BASIC FAM Jun 24, 2009 112 [id number] [phone] ABHILASH GARAY PATIENT [place] PREFERRED PROVIDER ORGANIZAT ION (PPO) FEP BASIC FAM Jun 24, 2009 112 [id number] [phone] ABHILASH GARAY PATIENT [place] PREFERRED PROVIDER ORGANIZAT ION (PPO) FEP BASIC FAM Jun 24, 2009 112 [id number] [phone] ABHILASH GARAY PATIENT [place]BS [place] FEP PREFERRED PROVIDER ORGANIZAT ION (PPO) BASIC FAMIL Y Jun 24, 2009 [id number] ABHILASH GARAY PATIENT [place] F[place] PREFERRED PROVIDER ORGANIZAT ION (PPO) BASIC FAMIL Y Jun 24, 2009 112 [id number] [phone] ABHILASH GARAY PATIENT [place] FEP PREFERRED PROVIDER ORGANIZAT ION (PPO) BASIC FAMIL Y Jun 24, 2009 [id number] ABHILASH GARAY PATIENT [place] F[place] DENTAL DENTAL INSURANCE BASIC Jul 12, 2009 DENTAL [id number] ABHILASH GARAY PATIENT [place] FEP PREFERRED PROVIDER ORGANIZAT ION (PPO) BASIC FAMIL Y Jun 24, 2009 [id number] ABHILASH GARAY PATIENT [employer] FEP ([id number]) PRESCRIPT ION FEPRX Jun 24, 2009 [id number] [phone] ABHILASH GARAY PATIENT [place] FEP BCBS PRESCRIPT ION CAREM ARK FEPRX PLAN Nov 21, 2021 [id number] ABHILASH GARAY PATIENT [employer] FEPRX PLAN PRESCRIPT ION CAREM ARK FEPRX Nov 21, 2021 [id number] ABHILASH GARAY PATIENT [place]-F EP BCBS PRESCRIPT ION FEP CAREM ARK Nov 21, 2021 [id number] ABHILASH GARAY PATIENT [place]-F EP BCBS PRESCRIPT ION FEP Jun 23, 2010 [id number] ABHILASH GARAY PATIENT MEDICARE (WN) MEDICARE () PART A Feb 22, 2020 PART A [id number] ABHILASH GARAY PATIENT MEDICARE ([facility]) MEDICARE (M) PART A Feb 22, 2020 PART A [id number] ABHILASH GARAY PATIENT MEDICARE (WNR) MEDICARE (M) PART A Feb 22, 2020 PART A [id number] ABHILASH GARAY PATIENT MEDICARE (WNR) MEDICARE (M) PART A Feb 22, 2020 PART A [id number] [id number] ABHILASH GARAY PATIENT MEDICARE (WNR) MEDICARE (M) PART A Feb 22, 2020 PART A [id number] [id number] [phone] ABHILASH GARAY PATIENT Selected Encounter This section includes the information on record at [place] for the Encounter. Date/Time Encounter Type Encounter Description Reason Provider Source Feb 05, 2024 02:08 PM Outpatient Encounter PROSTHETICS/ORTHOTI CS [place] IHFran Encounter Template Text not used by [place] Plan of Treatment: Future Appointments (+ 6 months) and Future Tests (+/- 45 days) The Plan of Treatment section includes future care activities for the patient [facility] all [place] [facility] This section includes future [...] 09, 2024 11:30 AM AMBULATORY - MEDICINE [facility] [place] [facility] Feb 09, 2024 02:00 PM AMBULATORY - MEDICINE [place] [facility] Feb 19, 2024 01:00 PM AMBULATORY - MEDICINE [place] [facility] Feb 25, 2024 11:00 AM AMBULATORY - NONE [place] [facility] Mar 04, 2024 01:00 PM AMBULATORY - MEDICINE [place] [facility] Mar 09, 2024 01:00 PM AMBULATORY - MEDICINE [place] [facility] Mar 11, 2024 11:00 AM AMBULATORY - MEDICINE [facility] [facility] Mar 15, 2024 12:15 PM AMBULATORY - MEDICINE [place] [facility] Mar 25, 2024 01:00 PM AMBULATORY - MEDICINE [place] [facility] [place] [facility] Apr 06, 2024 10:30 AM AMBULATORY - MEDICINE [place] Apr 07, 2024 03:30 PM AMBULATORY - NONE [place] [facility] Apr 08, 2024 01:00 PM AMBULATORY - MEDICINE [facility] [place] [facility] Apr 12, 2024 11:00 AM AMBULATORY - MEDICINE [facility] [place] [facility] Apr 15, 2024 10:00 AM AMBULATORY - MEDICINE [facility] [place] [facility] Apr 19, 2024 11:00 AM AMBULATORY - MEDICINE [facility] [place] [facility] Apr 22, 2024 09:00 AM AMBULATORY - MEDICINE [facility] [place] [facility] May 03, 2024 01:00 PM AMBULATORY - MEDICINE [facility] [place] [facility] May 17, 2024 01:00 PM AMBULATORY - REHAB MEDICIN [facility] [place] May 28, 2024 07:30 AM AMBULATORY - MEDICINE [facility] [place] [facility] Jun 03, 2024 01:00 PM AMBULATORY - MEDICINE [facility] [place] [facility] Social History: Smoking Status (Most current) [...] 08, 2023 09:12 AM [facility] Tobacco Use History This section includes a history of the smoking, or tobacco-related health factors, that were collected on or before the date of the Encounter. The data comes from the [place] facility where the Encounter took place. Date/Time Smoking Status/Tobacco Use Comment F darvin Aug 09, 2021 09:20 AM VA-TOBACCO NEVER USED [facility]
--- OUTSIDE RECORDS SUMMARY | 2024-06-29 19:09 | XMS_ITS | Encounter Summary ---
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 Name Role Phone ABDIRAHMAN LAKE Primary Care [...] BASIC FAMIL Y Jun 24, 2009 [id number] [phone] ABHILASH GARAY PATIENT ANTHEM BCBS [place] FEP PREFERRED PROVIDER ORGANIZAT ION (PPO) FEP BASIC FAM Jun 24, 2009 [id number] [phone] ABHILASH GARAY PATIENT ANTHEM BCBS [place] FEP PREFERRED PROVIDER ORGANIZAT ION (PPO) FEP BASIC FAM Jun 24, 2009 112 [id number] [phone] ABHILASH GARAY PATIENT [place]THE[place] PREFERRED PROVIDER ORGANIZAT ION (PPO) FEP BASIC FAM Jun 24, 2009 [id number] [phone] ABHILASH GARAY PATIENT [place] PREFERRED PROVIDER ORGANIZAT ION (PPO) FEP BASIC FAM Jun 24, 2009 [id number] [phone] ABHILASH GARAY PATIENT [place]BS [place] F[place] PREFERRED PROVIDER ORGANIZAT ION (PPO) BASIC FAMIL Y Jun 24, 2009 [id number] [phone] ABHILASH GARAY PATIENT [place] FEP PREFERRED PROVIDER ORGANIZAT ION (PPO) BASIC FAMIL Y Jun 24, 2009 [id number] ABHILASH GARAY PATIENT [place] FEP PREFERRED PROVIDER ORGANIZAT ION (PPO) BASIC FAMIL Y Jun 24, 2009 [id number] ABHILASH GARAY PATIENT [place] FEP DENTAL DENTAL INSURANCE BASIC Jul 12, 2009 DENTAL [id number] ABHILASH GARAY PATIENT [place] F[place] PREFERRED PROVIDER ORGANIZAT ION (PPO) BASIC FAMIL Y Jun 24, 2009 [id number] ABHILASH GARAY PATIENT [employer] FEP ([id number]) PRESCRIPT ION FEPRX Jun 24, 2009 [id number] [phone] ABHILASH GARAY PATIENT [place] FEP BCBS PRESCRIPT ION CAREM ARK FEPRX PLAN Nov 21, 2021 [id number] ABHILASH GARAY PATIENT [employer] FEPRX PLAN PRESCRIPT ION CAREM ARK FEPRX Nov 21, 2021 [id number] ABHILASH GARAY PATIENT [employer]-F EP BCBS PRESCRIPT ION FEP CAREM ARK Nov 21, 2021 [id number] ABHILASH GARAY PATIENT [place]-F EP BCBS PRESCRIPT ION FEP Jun 23, 2010 [id number] RUBI GARAYNETH PATIENT MEDICARE (WN) MEDICARE (M) PART A Feb 22, 2020 PART A [id number] RUBI GARAYNETH PATIENT MEDICARE (WN) MEDICARE (M) PART A Feb 22, 2020 PART A [id number] [facility] ABHILASH GARAY PATIENT MEDICARE (WNR) MEDICARE (M) PART A Feb 22, 2020 PART A [id number] [facility] ABHILASH GARAY PATIENT MEDICARE (WNR) MEDICARE (M) PART A Feb 22, 2020 PART A [id number] [facility] [phone] [id number] ABHILASH GARAY PATIENT MEDICARE (WNR) MEDICARE (M) PART A Feb 22, 2020 PART A [id number] [phone] [id number] ABHILASH GARAY PATIENT Selected Encounter This section includes the information on record at [place] for the Encounter. Date/Time Encounter Type Encounter Description Reason Provider Source Jun 11, 2024 02:00 PM NEUROMUSCULAR REEDUCATION PHYSICAL THERAPY ICD-10-CM G90.09 Other idiopathic peripheral autonomic neuropathy JESSICA MEDRANO Fran Encounter Template Text not used by [place] Assessments - Encounter Diagnoses This section includes the primary and secondary diagnoses documented for the Encounter. Date/Time Primary/Secondary Diagnosis Diagnosis Name Provider Source Jun 11, 2024 02:08 PM PRIMARY Other idiopathic peripheral autonomic neuropathy HERO MEDRANO Plan of Treatment: Future Appointments (+ 6 months) and Future Tests (+/- 45 days) The Plan of Treatment section includes future care activities for the patient from all [place] [facility]. This section includes future appointments and future orders which are active, pending or scheduled. Future Appointments This section includes appointments that were scheduled to occur 6 months from the date of the Encounter, up to a maximum of 20 appointments. The data comes from all [place] treatment facilities. Appointment Date/Time Appointment Type Appointme nt Facility Name Jun 14, 2024 10:30 AM AMBULATORY - MEDICINE [facility] [place] [facility] Jun 15, 2024 10:00 AM AMBULATORY - RE[facility]AB [facility] Jun 22, 2024 11:30 AM AMBULATORY - MEDICINE [place] [facility] Jun 22, 2024 03:00 PM AMBULATORY - REHAB [facility] Jun 24, 2024 01:00 PM AMBULATORY - MEDICINE [place] [facility] Jun 28, 2024 11:00 AM AMBULATORY - NONE [place] [facility] Jul 07, 2024 01:00 PM AMBULATORY - MEDICINE [place] Jul 23, 2024 01:30 PM AMBULATORY - MEDICINE [place] [facility] Aug 04, 2024 10:00 AM AMBULATORY - MEDICINE [facility] [place] [facility] Aug 25, 2024 10:30 AM AMBULATORY - MEDICINE [place] [facility] [place] [facility] Sep 21, 2024 01:30 PM [...] of theEncounter. The data comes from all [place] treatment facilities. Test Date/Time Test Type Test Details Facility Name Jun 01, 2024 11:54 AM Consult Order [facility] MASSAGE THERAPY Cons [employer] [place] Social History: Smoking Status (Most current) and [...] Current Smoking Status Comment Odalis casey Apr 06, 2024 10:30 AM [place]-TOBACCO NEVER USED [place] Tobacco Use History This section includes a history of the smoking, or tobacco-related health factors, that were collected on or before the date of the Encounter. The data comes from the [place] facility where the Encounter took place. Date/Time Smoking Status/Tobacco Use Comment F acility Aug 18, 2020 10:00 AM VA-TOBACCO NEVER USED [place] Dec 15, 2018 12:14 PM VA-TOBACCO NEVER USED [place] Jun 11, 2017 04:15 PM LIFETIME NON-TOBACCO USER [place] Jan 01, 2016 11:12 AM LIFETIME NON-TOBACCO USER [place] Jan 16, 2005 08:54 AM LIFETIME NON-SMOKER [place] Nov 29, 2003 08:05 AM LIFETIME NON-SMOKER [place] Jan 07, 2001 08:33 AM LIFETIME NON-SMOKER [place] Encounter Notes: All associated encounter notes This section contains the clinical notes associated to the Encounter. Date/Time Encounter Note(s) Provider Source Jun 11, 2024 01:58 PM PHYSICAL THERAPY N OTE: LOCAL TITLE: PHYSICAL THERAPY STANDARD TITLE: PHYSICAL THERAPY NOTE DATE OF NOTE: JUN 11, 2024@13:58 ENTRY DATE: JUN 11, 2024@13:58:21 AUTHOR: HERO MEDRANO EXP COSIGNER: URGENCY: STATUS: COMPLETED Initial Evaluation date:05/17/24 Date of note: 05/17/24 Re-evaluation date: 06/16/24 Treatment #: 2 Treatment time: 30 Diagnosis: Other Idiopathic Peripheral Autonomic Neuropathy(ICD-10-CM G90.09) Provider: ABDIRAHMAN LAKE Pt identified by: full name and Resting Vitals: HR: 71 BP: 131/69 SUBJECTIVE: patient states he has been doing well. HEP going well. OBJECTIVE: Therapeutic Exercise: Mins: 17 Nustep 8mins Anterior step ups 2x15 lateral step ups 2x15 standing hip abduction with band 2x15 yellow Manual therapy: Mins: Neuro re-ed: Mins: 10 airex balance eyes open 2x30s airex balance eyes closed 2x30s airex semi tandem 2x30s full tandem level surface 2x30s lateral stepping 2mins Other: Mins: Modalities: Mins: [] contraindication screen completed prior to modality [] skin intact pre/post modality Access Code: [email or web address] URL: [email or web address] Date: 05/17/2024 Prepared by: Hero Medrano Exercises - Seated Hip Abduction with [...] weekly - 2-3 sets - 10-20 reps PATIENT EDUCATION: Mins: Patient education was provided for all aspects of care during this clinical encounter. ASSESSMENT: Patient was seen for routine follow up. Provided instruction through progressions in LE strengthening exercises and balance exercises on level and unlevel surfaces with good tolerance from patient. Patient with difficulty maintaining tandem stance on level surface and semi tandem on foam needing CGA/Min A to regain balance on occasion. Advised to continue current HEP. Will reassess next visit. PLAN: Progress static balance exercises, continue with dynamic gait/balance training [X]Low impact cardio: [X]Nustep []Recumbent bike []Recumbent elliptical []UBE []Manual: []STM/DTM []METs/SCS []IASTM []Joint mobilizations [X]Therex: []Progressive UQ [X]Progressive Core [X]Progressive LQ []UQ flex [] Lumbar flex [X]LQ flex []Foam rolling []Proprioception [X]Neuro Re-education: [X]Static [X]Dynamic [X]Dual-Task [X]Education: []Posture []Ergonomics []Bodymechanics [X]Self-care strategies []PNE []Modalities(PRN): []Heat/Ice []Estim/Tens []Mechanical traction []K-tape [] Biofreeze /es/ HERO MEDRANO PT, DPT PHYSICAL THERAPIST Signed: 06/11/2024 14:31 HERO MEDRANO [place]
--- OUTSIDE RECORDS SUMMARY | 2024-06-29 19:09 | XMS_ITS ---
Author Name [facility] [place] Address [address] [place] [address] Care Team Providers Care Sail Repair Person Name Role Phone ABDIRAHMAN LAKE Primary Care [...] BASIC FAMIL Y Jun 24, 2009 [id number] [phone] ABHILASH GARAY PATIENT ANTHEM BCBS [place] F[place] PREFERRED PROVIDER ORGANIZAT ION (PPO) FEP BASIC FAM Jun 24, 2009 112 [id number] [phone] ABHILASH GARAY PATIENT ANTHEM BCBS [place] F[place] PREFERRED PROVIDER ORGANIZAT ION (PPO) FEP BASIC FAM Jun 24, 2009 112 [id number] [phone] ABHILASH GARAY PATIENT [place]THE[place] PREFERRED PROVIDER ORGANIZAT ION (PPO) FEP BASIC FAM Jun 24, 2009 112 [id number] [phone] ABHILASH GARAY PATIENT [place] PREFERRED PROVIDER ORGANIZAT ION (PPO) FEP BASIC FAM Jun 24, 2009 112 [id number] [phone] ABHILASH GARAY PATIENT BCBS [place] FEP PREFERRED PROVIDER ORGANIZAT ION (PPO) BASIC FAMIL Y Jun 24, 2009 [id number] ABHILASH GARAY PATIENT [place] PREFERRED PROVIDER ORGANIZAT ION (PPO) BASIC FAMIL Y Jun 24, 2009 [id number] [phone] ABHILASH GARAY PATIENT [place] FEP PREFERRED PROVIDER ORGANIZAT ION (PPO) BASIC FAMIL Y Jun 24, 2009 [id number] ABHILASH GARAY PATIENT [place] F[place] DENTAL DENTAL INSURANCE BASIC Jul 12, 2009 DENTAL [id number] 62 ABHILASH GARAY PATIENT [place] F[place] PREFERRED PROVIDER ORGANIZAT ION (PPO) BASIC FAMIL Y Jun 24, 2009 [id number] 62 ABHILASH GARAY PATIENT [place] FEP ([id number]) PRESCRIPT ION FEPRX Jun 24, 2009 [id number] [phone] ABHILASH GARAY PATIENT [place] FEP BCBS PRESCRIPT ION CAREM ARK FEPRX PLAN Nov 21, 2021 [id number] ABHILASH GARAY PATIENT [place] FEPRX PLAN PRESCRIPT ION CAREM ARK FEPRX Nov 21, 2021 [id number] ABHILASH GARAY PATIENT [place]-F EP BCBS PRESCRIPT ION FEP CAREM ARK Nov 21, 2021 [id number] ABHILASH GARAY PATIENT [place]-F EP BCBS PRESCRIPT ION FEP Jun 23, 2010 [id number] ABHILASH GARAY PATIENT MEDICARE (WN) MEDICARE () PART A Feb 22, 2020 PART A [id number] [phone] ABHILASH GARAY PATIENT MEDICARE ([facility] MEDICARE () PART A Feb 22, 2020 PART A [id number] [phone] ABHILASH GARAY PATIENT MEDICARE (WNR) MEDICARE (M) PART A Feb 22, 2020 PART A [id number] ABHILASH GARAY PATIENT MEDICARE (WNR) MEDICARE (M) PART A Feb 22, 2020 PART A [id number] ABHILASH GARAY PATIENT MEDICARE (WNR) MEDICARE (M) PART A Feb 22, 2020 PART A [id number] ABHILASH GARAY PATIENT Selected Encounter This section includes the information on record at [place] for the Encounter. Date/Time Encounter Type Encounter Description Reason Pro vider Source May 12, 2024 12:00 AM Outpatient Encounter EVENT (HISTORICAL) IHE Encounter Template Text not used by [place] Plan of Treatment: Future Appointments (+ 6 months) and Future Tests (+/- 45 days) The Plan of Treatment section includes future care activities for the patient [facility] [place] [facility] This section includes future appointments and [...] 2024 01:00 PM AMBULATORY - RE[facility]AB [facility]ICIN [facility] May 28, 2024 07:30 AM AMBULATORY - MEDICINE [place] [facility] Jun 03, 2024 01:00 PM AMBULATORY - MEDICINE [place] [facility] Jun 08, 2024 03:00 PM AMBULATORY - REHAB MEDICIN [facility] Jun 11, 2024 08:00 AM AMBULATORY [facility] MEDICINE [facility] Jun 11, 2024 02:00 PM AMBULATORY - REHAB MEDICIN [facility] Jun 14, 2024 10:30 AM AMBULATORY - MEDICINE [place] C [place] [facility] Jun 15, 2024 10:00 AM AMBULATORY - REHAB MEDICIN [facility] Jun 22, 2024 11:30 AM AMBULATORY - MEDICINE [facility] N[place]L [place] [facility] Jun 22, 2024 03:00 PM AMBULATORY - REHAB MEDICIN [facility] Jun 24, 2024 01:00 PM AMBULATORY - MEDICINE [place] [facility] Jun 28, 2024 11:00 AM AMBULATORY - NONE [place] [facility] Jul 07, 2024 01:00 PM AMBULATORY - MEDICINE [place] Jul 23, 2024 01:30 PM AMBULATORY - MEDICINE [place] C [place] [facility] Aug 04, 2024 10:00 AM AMBULATORY - MEDICINE [place] [facility] Aug 25, 2024 10:30 AM AMBULATORY - MEDICINE [place] C [place] [facility] Sep 21, 2024 01:30 PM AMBULATORY [...] data comes from all [place] treatment facilities. Test Date/Time Test Type Test Details Facility Name Apr 08, 2024 12:00 AM Laboratory - Chemistry Order URINALYSIS URINE SP [place] Apr 15, 2024 03:06 PM Consult Order [facility]-NEUROLOGY Cons Carpenter's Choice [place] [facility] Jun 01, 2024 11:54 AM Consult Order [facility] MASSAGE THERAPY Cons Carpenter's Choice [place] Lab Results: +/- 30 days of the [...] Range Comment Apr 15, 2024 11:16 AM [place] [facility] CPK Specimen Type: SERUM No comment entered. Ordering Provider: JOHN PAUL DENNISON Report Released Date/Time: Apr 15, 2024 10:55 AM Reporting Lab: [place] [facility] [address] [id number] Performing Lab: [facility] [address] [facility] [id number] CPK 67 U/L 30-200 Social History: Smoking [...] 08, 2023 09:12 AM VA-TOBACCO NEVER USED [facility] Tobacco Use History This section includes a history of the smoking, or tobacco-related health factors, that were collected on or before the date of the Encounter. The data comes from the [place] facility where the Encounter took place. Date/Time Smoking Status/Tobacco Use Comment F acility Aug 09, 2021 09:20 AM VA-TOBACCO NEVER USED [facility] Encounter Notes: All associated encounter notes This section contains the clinical notes associated to the Encounter. Date/Time Encounter Note(s) Provider Source May 12, 2024 12:00 AM NONVA NOTE: LOCAL TITLE: NON-VA OUTPATIENT NOTES STANDARD TITLE: NONVA NOTE DATE OF NOTE: MAY 12, 2024 ENTRY DATE: JUN 10, 2024@11:17:42 AUTHOR: DAHIANA MCMILLAN EXP COSIGNER: URGENCY: STATUS: COMPLETED VistA Imaging - Scanned Document SCANNED DOCUMENT SIGNATURE NOT REQUIRED Electronically Filed: 06/10/2024 by: DAHIANA JANG [facility]
--- OUTSIDE RECORDS SUMMARY | 2024-06-29 19:09 | XMS_ITS | Encounter Summary ---
Author Name [facility] [place] Address [address] [place] [address] Care Team Providers Care General Surgeon Name Role Phone ABDIRAHMAN LAKE Primary Care [...] BASIC FAMIL Y Jun 24, 2009 [id number] [phone] ABHILASH GARAY PATIENT ANTHEM BCBS [place] FEP PREFERRED PROVIDER ORGANIZAT ION (PPO) FEP BASIC FAM Jun 24, 2009 112 [id number] [phone] ABHILASH GARAY PATIENT ANTHEM [place]BS [place] F[place] PREFERRED PROVIDER ORGANIZAT ION (PPO) FEP BASIC FAM Jun 24, 2009 112 [id number] [phone] ABHILASH GARAY PATIENT [place] PREFERRED PROVIDER ORGANIZAT ION (PPO) FEP BASIC FAM Jun 24, 2009 112 [id number] [phone] ABHILASH GARAY PATIENT [place] PREFERRED PROVIDER ORGANIZAT ION (PPO) FEP BASIC FAM Jun 24, 2009 112 [id number] [phone] ABHILASH GARAY PATIENT [place]BS [place] FEP PREFERRED PROVIDER ORGANIZAT ION (PPO) BASIC FAMIL Y Jun 24, 2009 [id number] ABHILASH GARAY PATIENT [place] FEP PREFERRED PROVIDER ORGANIZAT ION (PPO) BASIC FAMIL Y Jun 24, 2009 [id number] ABHILASH GARAY PATIENT [place] FEP PREFERRED PROVIDER ORGANIZAT ION (PPO) BASIC FAMIL Y Jun 24, 2009 [id number] [phone] ABHILASH GARAY PATIENT [place] FEP DENTAL DENTAL INSURANCE BASIC Jul 12, 2009 DENTAL [id number] ABHILASH GARAY PATIENT [place] FEP PREFERRED PROVIDER ORGANIZAT ION (PPO) BASIC FAMIL Y Jun 24, 2009 112 [id number] [phone] ABHILASH GARAY PATIENT [place] FEP ([id number]) PRESCRIPT ION FEPRX Jun 24, 2009 [id number] [phone] ABHILASH GARAY PATIENT [place] FEP BCBS PRESCRIPT ION CAREM ARK FEPRX PLAN Nov 21, 2021 [id number] ABHILASH GARAY PATIENT [employer] FEPRX PLAN PRESCRIPT ION CAREM ARK FEPRX Nov 21, 2021 [id number] ABHILASH GARAY PATIENT [employer]-F EP BCBS PRESCRIPT ION FEP CAREM ARK Nov 21, 2021 [id number] ABHILASH GARAY PATIENT [place]-F EP BCBS PRESCRIPT ION FEP Jun 23, 2010 [id number] ABHILASH GARAY PATIENT MEDICARE (WN) MEDICARE () PART A Feb 22, 2020 PART A [id number] [phone] ABHILASH GARAY PATIENT MEDICARE ([facility]) MEDICARE () PART A Feb 22, 2020 PART A [id number] NV71 [phone] ABHILASH GARAY PATIENT MEDICARE (WNR) MEDICARE (M) PART A Feb 22, 2020 PART A [id number] ABHILASH GARAY PATIENT MEDICARE (WNR) MEDICARE (M) PART A Feb 22, 2020 PART A [id number] ABHILASH GARAY PATIENT MEDICARE (WNR) MEDICARE (M) PART A Feb 22, 2020 PART A [id number] ABHILASH GARAY PATIENT Selected Encounter This section includes the information on [place] at [place] for the Encounter. Date/Time Encounter Type Encounter Description Reason Pro vider Source Jun 17, 2024 08:17 AM Outpatient Encounter PRIMARY CARE/MEDICINE IHE Encounter [...] Appointment Type Appointme nt Facility Name Jun 22, 2024 11:30 AM AMBULATORY - MEDICINE [place] [facility] Jun 22, 2024 03:00 PM AMBULATORY - REHAB MEDICIN [place] Jun 24, 2024 01:00 PM AMBULATORY - MEDICINE [place] C [place] [facility] Jun [...] 2024 01:30 PM [facility] Oct 05, 2024 11:00 AM AMBULATORY - MEDICINE [facility] Active, Pending, and Scheduled [...] Jun 01, 2024 11:54 AM Consult Order [facility] 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 The data comes from the [place] facility where the Encounter took place. Date/Time Smoking Status/Tobacco Use Comment F acility Aug 09, 2021 09:20 AM [place]-TOBACCO NEVER USED [facility] Encounter Notes: All associated encounter notes This section contains the clinical notes associated to the Encounter. Date/Time Encounter Note(s) Provider Source Jun 17, 2024 08:17 AM MEDICATION MGT NOT E: LOCAL TITLE: MEDICATION RENEWAL STANDARD TITLE: MEDICATION MGT NOTE DATE OF NOTE: JUN 17, 2024@08:17 ENTRY DATE: JUN 17, 2024@08:18:16 AUTHOR: RADHIKA GOMEZ EXP COSIGNER: URGENCY: STATUS: COMPLETED Please renew for mail ALLOPURINOL 100MG TAB () POTASSIUM CITRATE 10MEQ SA TAB /es/ BREANNA BAKER RN-BC REGISTERED NURSE Signed: 06/17/2024 08:18 Receipt Acknowledged By: 06/17/2024 11:07 /es/ JEAN CLAUDE MENDEZ CERTIFIED NURSE PRACTITIONER RADHIKA GOMEZ
--- OUTSIDE RECORDS SUMMARY | 2024-06-29 19:09 | XMS_ITS | Encounter Summary ---
Author Name [facility] [place] Address [address] [place] [address] Care Team Providers Care Grave Cleaner Name Role Phone ABDIRAHMAN LAKE Primary Care [...] BASIC FAMIL Y Jun 24, 2009 112 [id number] [phone] ABHILASH GARAY PATIENT ANTHEM BCBS [place] FEP PREFERRED PROVIDER ORGANIZAT ION (PPO) FEP BASIC FAM Jun 24, 2009 112 [id number] [phone] ABHILASH GARAY PATIENT ANTHEM [place]BS [place] F[place] PREFERRED PROVIDER ORGANIZAT ION (PPO) FEP BASIC FAM Jun 24, 2009 112 [id number] [phone] ABHILASH GARAY PATIENT [place] PREFERRED PROVIDER ORGANIZAT ION (PPO) FEP BASIC FAM Jun 24, 2009 112 [id number] [phone] ABHILASH GARAY PATIENT [place] PREFERRED PROVIDER ORGANIZAT ION (PPO) FEP BASIC FAM Jun 24, 2009 [id number] [phone] ABHILASH GARAY PATIENT BCBS [place] FEP PREFERRED PROVIDER ORGANIZAT ION (PPO) BASIC FAMIL Y Jun 24, 2009 [id number] ABHILASH GARAY PATIENT [place] FEP PREFERRED PROVIDER ORGANIZAT ION (PPO) BASIC FAMIL Y Jun 24, 2009 112 [id number] [phone] ABHILASH GARAY PATIENT [place] FEP PREFERRED PROVIDER ORGANIZAT ION (PPO) BASIC FAMIL Y Jun 24, 2009 112 [id number] ABHILASH GARAY PATIENT [place] F[place] DENTAL DENTAL INSURANCE BASIC Jul 12, 2009 DENTAL [id number] [phone] ABHILASH GARAY PATIENT [place] FEP PREFERRED PROVIDER ORGANIZAT ION (PPO) BASIC FAMIL Y Jun 24, 2009 [id number] ABHILASH GARAY PATIENT [employer] FEP ([id number]) PRESCRIPT ION FEPRX Jun 24, 2009 [id number] [phone] ABHILASH GARAY PATIENT [place] FEP BCBS PRESCRIPT ION CAREM ARK FEPRX PLAN Nov 21, 2021 [id number] ABHILASH GARAY PATIENT [employer] FEPRX PLAN PRESCRIPT ION CAREM ARK FEPRX Nov 21, 2021 [id number] ABHILASH GARAY PATIENT [employer]-F EP BCBS PRESCRIPT ION FEP CAREM ARK Nov 21, 2021 [id number] ABHILASH GARAY PATIENT [place]-F EP BCBS PRESCRIPT ION FEP Jun 23, 2010 [id number] ABHILASH GARAY PATIENT MEDICARE (WN) MEDICARE () PART A Feb 22, 2020 PART A [id number] ABHILASH GARAY PATIENT MEDICARE ([facility]) MEDICARE () PART A Feb 22, 2020 PART A [id number] [id number] [phone] ABHILASH GARAY PATIENT MEDICARE (WNR) MEDICARE (M) PART A Feb 22, 2020 PART A [id number] [id number] [phone] ABHILASH GARAY PATIENT MEDICARE (WNR) MEDICARE (M) PART A Feb 22, 2020 PART A [id number] [id number] [phone] ABHILASH GARAY PATIENT MEDICARE (WNR) MEDICARE (M) PART A Feb 22, 2020 PART A [id number] ABHILASH GARAY PATIENT Selected Encounter This section includes the information on record at [place] for the Encounter. Date/Time Encounter Type Encounter Description Reason Pro vider Source May 18, 2024 12:00 AM Outpatient Encounter EVENT (HISTORICAL) IHE Encounter Template Text not used by [place] Plan of Treatment: Future Appointments (+ 6 months) and Future Tests (+/- 45 days) The Plan of Treatment section includes future care activities for the patient [facility] [place] [facility]. This section includes future appointments and future [...] 28, 2024 07:30 AM AMBULATORY - MEDICINE [facility] [place] [place] [facility] Jun 03, 2024 01:00 PM [facility]UL[facility]ORY [facility] [place] [facility] Jun 08, 2024 03:00 PM AMBULATORY - RE[facility]AB [facility] Jun 11, 2024 08:00 AM AMBULATORY - MEDICINE [facility] Jun 11, 2024 02:00 PM AMBULATORY - REHAB MED[facility] Jun 14, 2024 10:30 AM [facility]ULATORY - MEDICINE [facility] [place] [place] [facility] Jun 15, 2024 10:00 AM AMBULATORY - REHAB [facility] Jun 22, 2024 11:30 AM AM[facility]ULATORY - MEDICINE [facility] [place] [facility] Jun 22, 2024 03:00 [facility] 24, 2024 01:00 PM AMBULATORY - MEDICINE [place] [facility] Jun 28, 2024 11:00 AM AMBULATORY - NONE [place] [facility] Jul 07, 2024 01:00 PM AMBULATORY - MEDICINE [place] Jul 23, 2024 01:30 PM AMBULATORY - MEDICINE [place] C [place] [facility] Aug 04, 2024 10:00 AM AMBULATORY - MEDICINE [place] C [place] [facility] Aug 25, 2024 10:30 AM AMBULATORY - MEDICINE [place] C [place] [facility] Sep 21, 2024 01:30 PM [...] Laboratory - Chemistry Order URINALYSIS URINE SP [place] Apr 15, 2024 03:06 PM Consult Order [facility]-NEUROLOGY Cons Viscera Washer's Choice [place]TRL [place] [facility] Jun 01, 2024 11:54 AM Consult Order [facility] MASSAGE THERAPY Cons Viscera [place]her's [place] Social History: Smoking Status (Most current) and [...] AM VA-TOBACCO NEVER USED [place] [facility] Tobacco Use History This section includes a history of the smoking, or tobacco-related health factors, that were collected on or before the date of the Encounter. The data comes from the [place] facility where the Encounter took place. Date/Time Smoking Status/Tobacco Use Comment F acility Aug 09, 2021 09:20 AM VA-TOBACCO NEVER USED [place] [facility] Encounter Notes: All associated encounter notes This section contains the clinical notes associated to the Encounter. Date/Time Encounter Note(s) Provider Source May 18, 2024 12:00 AM NONVA NOTE: LOCAL TITLE: NON-VA OUTPATIENT NOTES STANDARD TITLE: NONVA NOTE DATE OF NOTE: MAY 18, 2024 ENTRY DATE: JUN 17, 2024@11:07:26 AUTHOR: IFEANYI PARKER EXP COSIGNER: URGENCY: STATUS: COMPLETED VistA Imaging - Scanned Document SCANNED DOCUMENT SIGNATURE NOT REQUIRED Electronically Filed: 06/17/2024 by: IFEANYI BOYLE [place] [facility]
--- OUTSIDE RECORDS SUMMARY | 2024-06-29 19:09 | XMS_ITS | Encounter Summary ---
Author Name [facility] [place] Address [address] [place] [address] Care Team Providers Care Developer Analyst Name Role Phone ABDIRHAMAN LAKE Primary Care Provider [employer] wil[employer] Insurance [...] BASIC FAMIL Y Jun 24, 2009 [id number] [phone] ABHILASH GARAY PATIENT ANTHEM BCBS [place] FEP PREFERRED PROVIDER ORGANIZAT ION (PPO) FEP BASIC FAM Jun 24, 2009 112 [id number] [phone] ABHILASH GARAY PATIENT ANTHEM BCBS [place] FEP PREFERRED PROVIDER ORGANIZAT ION (PPO) FEP BASIC FAM Jun 24, 2009 112 [id number] [phone] ABHILASH GARAY PATIENT [place] PREFERRED PROVIDER ORGANIZAT ION (PPO) FEP BASIC FAM Jun 24, 2009 112 [id number] [phone] ABHILASH GARAY PATIENT [place] PREFERRED PROVIDER ORGANIZAT ION (PPO) FEP BASIC FAM Jun 24, 2009 112 [id number] [phone] ABHILASH GARAY PATIENT [place]BS [place] FEP PREFERRED PROVIDER ORGANIZAT ION (PPO) BASIC FAMIL Y Jun 24, 2009 [id number] ABHILASH GARAY PATIENT [place] FEP PREFERRED PROVIDER ORGANIZAT ION (PPO) BASIC FAMIL Y Jun 24, 2009 112 [id number] [phone] ABHILASH GARAY PATIENT [place] FEP PREFERRED PROVIDER ORGANIZAT ION (PPO) BASIC FAMIL Y Jun 24, 2009 112 [id number] ABHILASH GARAY PATIENT [place] FEP DENTAL DENTAL INSURANCE BASIC Jul 12, 2009 DENTAL [id number] ABHILASH GARAY PATIENT [place] F[place] PREFERRED PROVIDER ORGANIZAT ION (PPO) BASIC FAMIL Y Jun 24, 2009 [id number] [phone] ABHILASH GARAY PATIENT [employer] FEP ([id number]) PRESCRIPT ION FEPRX Jun 24, 2009 [id number] [phone] ABHILASH GARAY PATIENT [place] FEP BCBS PRESCRIPT ION CAREM ARK FEPRX PLAN Nov 21, 2021 [id number] ABHILASH GARAY PATIENT [place] FEPRX PLAN PRESCRIPT ION CAREM ARK FEPRX Nov 21, 2021 [id number] ABHILASH GARAY PATIENT [place]-F EP BCBS PRESCRIPT ION FEP CAREM ARK Nov 21, 2021 [id number] ABHILASH GARAY PATIENT [place]-F EP BCBS PRESCRIPT ION FEP Jun 23, 2010 [id number] RUBI GARAYNETH PATIENT MEDICARE (WN) MEDICARE () PART A Feb 22, 2020 PART A [id number] ABHILASH GARAY PATIENT MEDICARE (WN) MEDICARE () PART A Feb 22, 2020 PART A [id number] NV71 [phone] ABHILASH GARAY PATIENT MEDICARE (WNR) MEDICARE (M) PART A Feb 22, 2020 PART A [id number] ABHILASH GARAY PATIENT MEDICARE (WNR) MEDICARE (M) PART A Feb 22, 2020 PART A [id number] [phone] [id number] ABHILASH GARAY PATIENT MEDICARE (WNR) MEDICARE (M) PART A Feb 22, 2020 PART A [id number] ABHILASH GARAY PATIENT Selected Encounter This section includes the information on record at [place] for the Encounter. Date/Time Encounter Type Encounter Description Reason Provider Source Jun 10, 2024 01:00 PM EXERCISE CLASS HEALTH/WELLBEING SRVS ICD-10-CM Y93.42 Activity, PAT Yoder [place] IHE Encounter Template Text not used by [place] Assessments - Encounter Diagnoses This section includes the primary and secondary diagnoses documented for the Encounter. Date/Time Primary/Secondary Diagnosis Diagnosis Name Provider Source Jun 14, 2024 08:09 AM PRIMARY Activity, PEDRO [facility] Plan of Treatment: Future Appointments [...] 11, 2024 08:00 AM AMBULATORY - MEDICINE [facility] Jun 11, 2024 02:00 PM AMBULATORY - REHAB [facility] Jun 14, 2024 10:30 AM AMBULATORY - MEDICINE [place] [facility] Jun 15, 2024 10:00 AM AMBULATORY - REHAB [facility] Jun 22, 2024 11:30 AM AMBULATORY - MEDICINE [facility] Jun 22, 2024 03:00 PM AMBULATORY - REHAB MEDICIN [place] Jun 24, 2024 01:00 PM AMBULATORY - MEDICINE [place] C [place] [facility] Jun 28, 2024 11:00 AM AMBULATORY - NONE [place] [facility] Jul 07, 2024 01:00 PM AMBULATORY - MEDICINE [place] Jul 23, 2024 01:30 PM AMBULATORY - MEDICINE [place] C [place] [facility] Aug 04, 2024 10:00 AM AMBULATORY - MEDICINE [place] C [place] [facility] Aug 25, 2024 10:30 AM AMBULATORY - MEDICINE [place] C [place] [facility] Sep 21, 2024 01:30 PM [...] of theEncounter. The data comes from all [place] treatment facilities. Test Date/Time Test Type Test Details Facility Name Jun 01, 2024 11:54 AM Consult Order [facility] MASSAGE THERAPY Cons Boarding Kennel Or Cattery Operator's Choice [place] Social History: Smoking Status (Most current) and [...] 08, 2023 09:12 AM [facility]TOBACCO [facility] Tobacco Use History This section includes a history of the smoking, or tobacco-related health factors, that were collected on or before the date of the Encounter. The data comes from the [place] facility where the Encounter took place. Date/Time Smoking Status/Tobacco Use Comment F acjaved Aug 09, 2021 09:20 AM [place]-TOBACCO NEVER [facility] Encounter Notes: All associated encounter notes This section contains the clinical notes associated to the Encounter. Date/Time Encounter Note(s) Provider Source Jun 10, 2024 01:00 PM RECREATIONAL THERA PY NOTE: LOCAL TITLE: YOGA WELLBEING STANDARD TITLE: RECREATIONAL THERAPY NOTE DATE OF NOTE: JUN 10, 2024@13:00 ENTRY DATE: JUN 14, 2024@08:05:44 AUTHOR: MARY KATE MOORE COSIGNER: URGENCY: STATUS: [...] triangle pose, wide leg forward bend variations, [place] 2, extended side angle pose, [place] 1, plank, cobra, locust, downward facing dog, wisdom pose, contralateral limb raises, head to knee pose, bridge, reclined twist, knees to chest; Systematic Relaxation; and Gratitude. Modifications were geared toward the Bledsoe's individual needs and preferences. Bledsoe was one of seven participants in Group Yoga, fully engaging in all the postures offered and modifying according to individual needs. Bledsoe used yoga blocks and a yoga belt for support as needed and used breath as a tool to enhance practice. will return to class as personal scheduling allows. /yunior/ NINO [id number] Chairman And Chief Executive Officer Signed: 06/14/2024 08:10 MARY KATE MOORE [place] CNTRL [facility]
--- OUTSIDE RECORDS SUMMARY | 2024-06-29 19:09 | XMS_ITS ---
Author Name [facility] [facility] [place] [facility] [place] Address [address] [place] [address] Care Team Providers Care Telephone Lines Repairer Name Role Phone ABDIRAHMAN LAKE Primary Care [...] BASIC FAMIL Y Jun 24, 2009 [id number] [phone] ABHILASH GARAY PATIENT ANTHEM BCBS [place] F[place] PREFERRED PROVIDER ORGANIZAT ION (PPO) FEP BASIC FAM Jun 24, 2009 112 [id number] [phone] ABHILASH GARAY PATIENT ANTHEM BCBS [place] F[place] PREFERRED PROVIDER ORGANIZAT ION (PPO) FEP BASIC FAM Jun 24, 2009 112 [id number] [phone] ABHILASH GARAY PATIENT ANTHEM [place] PREFERRED PROVIDER ORGANIZAT ION (PPO) FEP BASIC FAM Jun 24, 2009 112 [id number] [phone] ABHILASH GARAY PATIENT [place]BS [place] F[place] PREFERRED PROVIDER ORGANIZAT ION (PPO) FEP BASIC FAM Jun 24, 2009 112 [id number] [phone] ABHILASH GARAY PATIENT BCBS [place] F[place] PREFERRED PROVIDER ORGANIZAT ION (PPO) BASIC FAMIL Y Jun 24, 2009 [id number] ABHILASH GARAY PATIENT [place] PREFERRED PROVIDER ORGANIZAT ION (PPO) BASIC FAMIL Y Jun 24, 2009 [id number] ABHILASH GARAY PATIENT [place] PREFERRED PROVIDER ORGANIZAT ION (PPO) BASIC FAMIL Y Jun 24, 2009 [id number] 62 ABHILASH GARAY PATIENT [place] F[place] DENTAL DENTAL INSURANCE BASIC Jul 12, 2009 DENTAL [id number] ABHILASH GARAY PATIENT [place] PREFERRED PROVIDER ORGANIZAT ION (PPO) BASIC FAMIL Y Jun 24, 2009 [id number] [phone] ABHILASH GARAY PATIENT [employer] FEP ([id number]) PRESCRIPT ION FEPRX Jun 24, 2009 [id number] [phone] ABHILASH GARAY PATIENT [employer] FEP BCBS PRESCRIPT ION CAREM ARK FEPRX PLAN Nov 21, 2021 [id number] ABHILASH GARAY PATIENT [employer] FEPRX PLAN PRESCRIPT ION CAREM ARK FEPRX Nov 21, 2021 [id number] ABHILASH GARAY PATIENT [employer]-F EP BCBS PRESCRIPT ION FEP CAREM ARK Nov 21, 2021 [id number] ABHILASH GARAY PATIENT [employer]-F EP BCBS PRESCRIPT ION FEP Jun 23, 2010 [id number] ABHILASH GARAY PATIENT MEDICARE (WN) MEDICARE () PART A Feb 22, 2020 PART A [id number] ABHILASH GARAY PATIENT MEDICARE ([facility]) MEDICARE () PART A Feb 22, 2020 PART A [id number] ABHILASH GARAY PATIENT MEDICARE (WNR) MEDICARE (M) PART A Feb 22, 2020 PART A [id number] ABHILASH GARAY PATIENT MEDICARE (WNR) MEDICARE (M) PART A Feb 22, 2020 PART A [id number] ABHILASH GARAY PATIENT MEDICARE (WNR) MEDICARE (M) PART A Feb 22, 2020 PART A [id number] [id number] ABHILASH GARAY PATIENT Selected Encounter This section includes the information on record at [place] for the Encounter. Date/Time Encounter Type Encounter Description Reason Pro vider Source Feb 19, 2024 12:00 AM Outpatient Encounter COMMUNITY CARE [...] NONE [facility] [place] [facility] Mar 04, 2024 01:00 PM AM[place]ORY [place] [facility] [place] [facility] Mar 09, 2024 01:00 PM AMBULATORY [facility]ICINE [facility] [place] [facility] Mar 11, 2024 11:00 AM [place] [facility] [place] [facility] Mar 15, 2024 12:15 PM AMBULATORY - MEDICINE [facility] [place] [facility] Mar 25, 2024 01:00 PM AMBULATORY - MEDICINE [facility] [place] [facility] Apr 06, 2024 10:30 AM AMBULATORY - MEDICINE [facility] Apr 07, 2024 03:30 PM AMBULATORY - NONE [facility] [place] [facility] Apr 08, 2024 01:00 PM AMBULATORY - MEDICINE [facility] [place] [facility] Apr 12, 2024 11:00 AM [place] [facility] [place] [facility] Apr 15, 2024 10:00 AM AMBULATORY [facility] MEDICINE [facility] [place] [facility] Apr 19, 2024 11:00 AM AMBULATORY - MEDICINE [facility] [place] [facility] Apr 22, 2024 09:00 AM [facility] [facility] [place] [facility] May 03, 2024 01:00 PM [facility] [facility] [place] [facility] May 17, 2024 01:00 PM AMBULATORY - REHAB [facility] May 28, 2024 07:30 AM [facility] [place] [facility] [place] [facility] Jun 03, 2024 01:00 PM [place] [facility] [place] [facility] Jun 08, 2024 03:00 PM AMBULATORY - REHAB [facility] Jun 11, 2024 08:00 AM AMBULATORY - MEDICINE [facility] Jun 11, 2024 02:00 PM AMBULATORY - REHAB [facility] Social History: Smoking Status (Most [...] 09, 2021 09:20 AM VA-TOBACCO NEVER USED [facility] Encounter Notes: All associated encounter notes This section contains the clinical notes associated to the Encounter. Date/Time Encounter Note(s) Provider Source Feb 19, 2024 12:00 AM NONVA CONSULT: LOCAL TITLE: COMMUNITY CARE-CONSULT RESULT NOTE STANDARD TITLE: NONVA CONSULT DATE OF NOTE: FEB 19, 2024 ENTRY DATE: JUN 17, 2024@12:15:49 AUTHOR: IFEANYI PARKER EXP COSIGNER: URGENCY: STATUS: COMPLETED VistA Imaging - Scanned Document SCANNED DOCUMENT SIGNATURE NOT REQUIRED Electronically Filed: 06/17/2024 by: IFEANYI BOYLE [facility]
--- OUTSIDE RECORDS SUMMARY | 2024-06-29 19:09 | XMS_ITS | Encounter Summary ---
Author Name [facility] [place] [facility] [place] [facility] [place] Address [address] [place] [address] Care Team Providers Care Assembler Finger Buffs Name Role Phone ABDIRAHMAN LAKE Primary Care [...] BASIC FAMIL Y Jun 24, 2009 [id number] [phone] ABHILASH GARAY PATIENT ANTHEM BCBS [place] FEP PREFERRED PROVIDER ORGANIZAT ION (PPO) FEP BASIC FAM Jun 24, 2009 112 [id number] [phone] ABHILASH GARAY PATIENT ANTHEM [place]BS [place] F[place] PREFERRED PROVIDER ORGANIZAT ION (PPO) FEP BASIC FAM Jun 24, 2009 112 [id number] [phone] ABHILASH GARAY PATIENT [place] PREFERRED PROVIDER ORGANIZAT ION (PPO) FEP BASIC FAM Jun 24, 2009 112 [id number] [phone] ABHILASH GARAY PATIENT [place] PREFERRED PROVIDER ORGANIZAT ION (PPO) FEP BASIC FAM Jun 24, 2009 112 [id number] [phone] RUBI GARAYNETH PATIENT [place]BS [place] FEP PREFERRED PROVIDER ORGANIZAT ION (PPO) BASIC FAMIL Y Jun 24, 2009 [id number] 62 ABHILASH GARAY PATIENT [place] F[place] PREFERRED PROVIDER ORGANIZAT ION (PPO) BASIC FAMIL Y Jun 24, 2009 [id number] ABHILASH GARAY PATIENT [place] FEP PREFERRED PROVIDER ORGANIZAT ION (PPO) BASIC FAMIL Y Jun 24, 2009 [id number] 62 ABHILASH GARAY PATIENT [place] FEP DENTAL DENTAL INSURANCE BASIC Jul 12, 2009 DENTAL [id number] 62 ABHILASH GARAY PATIENT [place] PREFERRED PROVIDER ORGANIZAT ION (PPO) BASIC FAMIL Y Jun 24, 2009 [id number] 62 ABHILASH GARAY PATIENT [employer] FEP ([id number]) PRESCRIPT ION FEPRX Jun 24, 2009 [id number] [phone] ABHILASH GARAY PATIENT [employer] FEP BCBS PRESCRIPT ION CAREM ARK FEPRX PLAN Nov 21, 2021 [id number] ABHILASH GARAY PATIENT [employer] FEPRX PLAN PRESCRIPT ION CAREM ARK FEPRX Nov 21, 2021 [id number] ABHILASH GARAY PATIENT [employer]-F EP BCBS PRESCRIPT ION FEP CAREM ARK Nov 21, 2021 [id number] ABHILASH GARAY PATIENT [employer] EP BCBS PRESCRIPT ION FEP Jun 23, 2010 [id number] DEJAHDANIKARUBI ACEVESNETH PATIENT MEDICARE (WNR) MEDICARE (M) PART A Feb 22, 2020 PART A [id number] [phone] RUBI GARAYNETH PATIENT MEDICARE (WN) MEDICARE (M) PART A Feb 22, 2020 PART A [id number] NV71 [id number] ABHILASH GARAY PATIENT MEDICARE (WNR) MEDICARE (M) PART A Feb 22, 2020 PART A [id number] [id number] [phone] ABHILASH GARAY PATIENT MEDICARE (WNR) MEDICARE (M) PART A Feb 22, 2020 PART A [id number] NV71 [id number] ABHILASH GARAY PATIENT MEDICARE (WNR) MEDICARE (M) PART A Feb 22, 2020 PART A [id number] [id number] [id number] ABHILASH GARAY PATIENT Selected Encounter This section includes the information on record at [place] for the Encounter. Date/Time Encounter Type Encounter Description Reason Provider Source Jun 11, 2024 08:00 AM OFFICE O/P EST LOW 20 MIN PODIATRY ICD-10-CM L60.3 Nail dystrophy THOMPSON CARRANZA Fran Encounter Template Text not used by [place] Assessments - Encounter Diagnoses This section includes the primary and secondary diagnoses documented for the Encounter. Date/Time Primary/Secondary Diagnosis Diagnosis Name Provider Source Jun 11, 2024 08:27 AM PRIMARY Nail dystrophy THOMPSON CARRANZA [place] Jun 11, 2024 08:27 AM SECONDARY Corns and callosities THOMPSON CARRANZA Jun 11, 2024 08:27 AM SECONDARY Pain in left toe(s) THOMPSON CARRANZA Jun 11, 2024 08:27 AM SECONDARY Pain in right toe(s) THOMPSON CARRANZA Jun 11, 2024 08:27 AM SECONDARY Peripheral vascular disease, unspecified THOMPSON [...] 14, 2024 10:30 AM AMBULATORY - MEDICINE [facility] Jun 15, 2024 10:00 AM AMBULATORY - RE[facility]AB [facility] Jun 22, 2024 11:30 AM AM[facility]ULATORY [facility]ICINE [facility] [place] [facility] Jun 22, 2024 03:00 PM AMBULATORY - REHAB MEDICIN [facility] Jun 24, 2024 01:00 PM AMBULATORY - MEDICINE [facility] [place] [facility] Jun 28, 2024 11:00 AM AMBULATORY - NONE [facility] [place] [facility] Jul 07, 2024 01:00 PM AMBULATORY - MEDICINE [place] Jul 23, 2024 01:30 PM AMBULATORY - MEDICINE [facility] [place] [facility] Aug 04, 2024 10:00 AM AMBULATORY - MEDICINE [facility] [place] [facility] Aug 25, 2024 10:30 AM AMBULATORY - MEDICINE [facility] [place] [facility] Sep 21, 2024 01:30 PM AMBULATORY - [...] Jun 01, 2024 11:[address] [facility] MASSAGE THERAPY Cons [employer]house Examiner[facility] [place] Social History: Smoking Status (Most current) and [...] Odalis ity Apr 06, 2024 10:30 AM [place]-TOBACCO NEVER USED [place] Tobacco Use History This section includes a history of the smoking, or tobacco-related health factors, that were collected on or before the date of the Encounter. The data comes from the [place] facility where the Encounter took place. Date/Time Smoking Status/Tobacco Use Comment F acility Aug 18, 2020 10:00 AM [place]-TOBACCO NEVER USED [place] Dec 15, 2018 12:14 PM [place]-TOBACCO NEVER USED [place] Jun 11, 2017 04:15 PM LIFETIME NON-TOBACCO USER [place] Jan 01, 2016 11:12 AM LIFETIME NON-TOBACCO USER [place] Jan 16, 2005 08:54 AM LIFETIME NON-SMOKER [place] Nov 29, 2003 08:05 AM LIFETIME NON-SMOKER [place] Jan 07, 2001 08:33 AM LIFETIME NON-SMOKER [place] Encounter Notes: All associated encounter notes This section contains the clinical notes associated to the Encounter. Date/Time Encounter Note(s) Provider Source Jun 11, 2024 07:26 AM PODIATRY NOTE: LOCAL TITLE: PODIATRY NOTE STANDARD TITLE: PODIATRY NOTE DATE OF NOTE: JUN 11, 2024@07:26 ENTRY DATE: JUN 11, 2024@07:26:22 AUTHOR: THOMPSON CARRANZA COSIGNER: URGENCY: STATUS: COMPLETED Is [place] interested in receiving the COVID-19 vaccine as it becomes available? [place] has declined the Covid-19 vaccine at this time. LAST SEEN FOR TREATMENT: 01/30/2024 S: Pt. is a 69yo alert WDWN CAUC MALE who is seen [...] present physical-medical status. Protective sensation utilizing a [place]ojana lOg monofilament is 10/10 bilateral. Exams are [...] nail plates to the point of immanent bleeding & PARING -DEBRIDEMENT OF HYPERKERATOSIS VIA ROTARY LYUBOV. All care rendered without complications & pt. progressing well after podiatric care this date & will be scheduled for periodic care in an attempt to prevent future complications due to the underlying medical conditions. Tx. By a non-professional could be extremely hazardous to the patient's well-being due to the underlying medical condition. RTC 24 WEEKS.(09/21 @ 1:30PM) DISCUSSED THE CRAZY DRIVERS ON THE ROAD AND HAVING A QUIET HOLIDAY SEASON *DISCUSSED NEW PROTOCOLS AND CALLED [facility] FOR RESCHEDULING TODAY I DISCUSSED THE FINDINGS & PLAN WITH PATIENT (UNCHANGED SINCE PREVIOUS VISIT) & PATIENT AGREES AND UNDERSTANDS PLAN Medication Reconciliation: PERFORMED TODAY - SEE BELOW. [...] JLV. Allergies/ADRs (Tool #5) FACILITY ALLERGY/ADR -------- [facility] NO KNOWN ALLERGIES [place] [facility] [place] [facility] No Known Allergies [facility] NO KNOWN ALLERGIES Med [...] the patient into personal health records (i.e. [employer]) are NOT included in this list. Non-VA medications documented outside this [place], remote inpatient orders (regardless of status) and remote clinic medications are NOT included in this list. The patient and provider must always discuss medications the patient is taking, regardless of where the medication was dispensed or obtained. OUTPT ACETAMINOPHEN 500MG TAB (Status = Active) TAKE ONE TABLET BY MOUTH THREE TIMES DAILY NEEDED FOR PAIN Rx# [id number] Last Released: 04/15/24 Qty/Days Supply: Rx Expiration Date: 02/17/25 Refills Remainin Indication: FOR PAIN OUTPT ALLOPURINOL 100MG TAB (Status = ) TAKE ONE TABLET BY MOUTH ONCE DAILY FOR GOUT Rx# [id number] Last Released: 03/05/24 Qty/Days Supply: Rx Expiration Date: 05/22/24 Refills Remainin OUTPT ATORVASTATIN CALCIUM 10MG TAB (Status = Active) TAKE ONE TABLET BY MOUTH AT BEDTIME FOR HIGH CHOLESTEROL Rx# [id number] Last Released: 06/10/24 Qty/Days Supply: Rx Expiration Date: 11/03/24 Refills Remainin Indication: FOR HIGH CHOLESTEROL OUTPT CAMPHOR/MENTHOL/METHYL SALICYLATE PATCH (Status = Active) APPLY 1 PATCH TOPICALLY ONCE DAILY NEEDED FOR PAIN (REMOVE PATCH AFTER 8 TO 12 HOURS) Rx# [id number] Last Released: 04/15/24 Qty/Days Supply: 60/60 Rx Expiration Date: 12/22/24 Refills Remainin Indication: FOR PAIN OUTPT DILTIAZEM (EQV-CARDIZEM) 120MG 24HR CAP (Status = Active/Suspended) TAKE ONE CAPSULE BY MOUTH ONCE DAILY FOR HIGH BLOOD PRESSURE Rx# [id number] Last Released: 03/30/24 Qty/Days Supply: Rx Expiration Date: 11/03/24 Refills Remainin Indication: FOR HIGH BLOOD PRESSURE Non-VA FISH OIL 500MG DHA/EPA CAP,ORAL TAKE BY MOUTH DAILY OUTPT FLUOCINONIDE 0.05% TOP SOLN (Status = Active/Suspended) APPLY 5-10 DROPS TO SCALP TWICE DAILY IN THE MORNING & EVENING AND MASSAGE IN. Rx# [id number] Last Released: 05/19/24 Qty/Days Supply: 60 Rx Expiration Date: 05/19/25 Refills Remainin OUTPT KETOCONAZOLE 2% SHAMPOO (Status = Active/Suspended) SHAMPOO TO DAMP HAIR TOPICALLY DIRECTED BY PROVIDER LEAVE IN FOR 5 MINUTES AND RINSE OUT. USE WHEN SHAMPOOING Rx# [id number] Last Released: 06/01/24 Qty/Days Supply: 120/ Rx Expiration Date: 12/29/24 Refills Remainin OUTPT LEVOTHYROXINE NA (SYNTHROID) 125MCG TAB (Status = Active/Suspended) TAKE ONE TABLET BY MOUTH EVERY MORNING 30 MINUTES BEFORE BREAKFAST FOR THYROID TAKE ON AN EMPTY STOMACH WITH A FULL GLASS OF WATER Rx# [id number] Last Released: 03/26/24 Qty/Days Supply: Rx Expiration Date: 10/16/24 Refills Remainin Indication: FOR THYROID OUTPT METOPROLOL SUCCINATE 50MG SA TAB (Status = Active/Suspended) TAKE ONE TABLET BY MOUTH ONCE DAILY FOR BLOOD PRESSURE/HEART Rx# [id number] Last Released: 05/21/24 Qty/Days Supply: Rx Expiration Date: 11/03/24 Refills Remainin Indication: ATRIAL FIBRILLATION Non-VA MULTIVITAMIN/MINERALS CAP/TAB TAKE ONE TABLET BY MOUTH EVERY DAY for the eyes Non-VA NIACIN TAB TAKE BY MOUTH OUTPT POTASSIUM CITRATE 10MEQ SA TAB (Status = Discontinued) TAKE TWO TABLETS BY MOUTH TWICE DAILY Rx# [id number] Last Released: 03/18/24 Qty/Days Supply: Rx Expiration Date: 02/25/25 Refills Remainin Indication: KIDNEY STONES OUTPT POTASSIUM CITRATE 10MEQ SA TAB (Status = Active/Suspended) TAKE TWO TABLETS BY MOUTH TWICE DAILY Rx# [id number] Last Released: 06/01/24 Qty/Days Supply: Rx Expiration Date: 05/26/25 Refills Remainin Indication: KIDNEY STONES OUTPT PREGABALIN 25MG ORAL CAP (Status = Active) TAKE ONE CAPSULE BY MOUTH TWICE DAILY Rx# [id number] Last Released: 06/02/24 Qty/Days Supply: Rx Expiration Date: 10/16/24 Refills Remainin Indication: FOR NERVE PAIN OUTPT RIVAROXABAN 20MG TAB (Status = Active/Suspended) TAKE ONE TABLET BY MOUTH ONCE DAILY TO PREVENT BLOOD CLOTS (TAKE WITH FOOD) Rx# [id number] Last Released: 04/15/24 Qty/Days Supply: Rx Expiration Date: 11/03/24 Refills Remainin Indication: TO PREVENT BLOOD CLOTS SUPPLIES /yunior/ THOMPSON CARRANZA [employer] Signed: 06/11/2024 08:28 THOMPSON CARRANZA [place]
--- OUTSIDE RECORDS SUMMARY | 2024-06-29 19:09 | XMS_ITS | Encounter Summary ---
Author Name [facility] [place] [facility] [place] [facility] [place] Address [address] [place] [address] Care Team Providers Care Maintenance Worker Municipal Name Role Phone ABDIRAHMAN LAKE Primary Care [...] BASIC FAMIL Y Jun 24, 2009 [id number] [phone] ABHILASH GARAY PATIENT ANTHEM BCBS [place] FEP PREFERRED PROVIDER ORGANIZAT ION (PPO) FEP BASIC FAM Jun 24, 2009 [id number] [phone] ABHILASH GARAY PATIENT ANTHEM BCBS [place] FEP PREFERRED PROVIDER ORGANIZAT ION (PPO) FEP BASIC FAM Jun 24, 2009 112 [id number] [phone] ABHILASH GARAY PATIENT [place]THE[place] PREFERRED PROVIDER ORGANIZAT ION (PPO) FEP BASIC FAM Jun 24, 2009 112 [id number] [phone] ABHILASH GARAY PATIENT [place] PREFERRED PROVIDER ORGANIZAT ION (PPO) FEP BASIC FAM Jun 24, 2009 [id number] [phone] ABHILASH GARAY PATIENT [place] PREFERRED PROVIDER ORGANIZAT ION (PPO) BASIC FAMIL Y Jun 24, 2009 [id number] ABHILASH GARAY PATIENT [place] PREFERRED PROVIDER ORGANIZAT ION (PPO) BASIC FAMIL Y Jun 24, 2009 112 [id number] [phone] ABHILASH GARAY PATIENT [place] FEP PREFERRED PROVIDER ORGANIZAT ION (PPO) BASIC FAMIL Y Jun 24, 2009 [id number] ABHILASH GARAY PATIENT [place] F[place] DENTAL DENTAL INSURANCE BASIC Jul 12, 2009 DENTAL [id number] [phone] ABHILASH GARAY PATIENT [place] PREFERRED PROVIDER ORGANIZAT ION (PPO) BASIC FAMIL Y Jun 24, 2009 112 [id number] [phone] ABHILASH GARAY PATIENT [employer] FEP ([id number]) PRESCRIPT ION FEPRX Jun 24, 2009 [id number] [phone] ABHILASH GARAY PATIENT [place] FEP BCBS PRESCRIPT ION CAREM ARK FEPRX PLAN Nov 21, 2021 [id number] ABHILASH GARAY PATIENT [employer] FEPRX PLAN PRESCRIPT ION CAREM ARK FEPRX Nov 21, 2021 [id number] [phone] ABHILASH GARAY PATIENT [employer]-F EP BCBS PRESCRIPT ION FEP CAREM ARK Nov 21, 2021 [id number] ABHILASH GARAY PATIENT [employer]-F EP BCBS PRESCRIPT ION FEP Jun 23, 2010 [id number] RUBI GARAYNETH PATIENT MEDICARE (WN) MEDICARE (M) PART A Feb 22, 2020 PART A [id number] RUBI GARAYNETH PATIENT MEDICARE (WN) MEDICARE (M) PART A Feb 22, 2020 PART A [id number] [facility] ABHILASH GARAY PATIENT MEDICARE (WNR) MEDICARE (M) PART A Feb 22, 2020 PART A [id number] [facility] [phone] ABHILASH GARAY PATIENT MEDICARE (WNR) MEDICARE (M) PART A Feb 22, 2020 PART A [id number] [facility] ABHILASH GARAY PATIENT MEDICARE (WNR) MEDICARE (M) PART A Feb 22, 2020 PART A [id number] [phone] ABHILASH GARAY PATIENT Selected Encounter This section includes the information on record at [place] for the Encounter. Date/Time Encounter Type Encounter Description Reason Provider Source Jun 15, 2024 10:00 AM NEUROMUSCULAR REEDUCATION PHYSICAL THERAPY ICD-10-CM G90.09 Other idiopathic peripheral autonomic neuropathy JESSICA MEDRANO Fran Encounter Template Text not used by CT Assessments - Encounter Diagnoses This section includes the primary and secondary diagnoses documented for the Encounter. Date/Time Primary/Secondary Diagnosis Diagnosis Name Provider Source Jun 15, 2024 10:21 AM PRIMARY Other idiopathic peripheral autonomic neuropathy HERO [...] CT C [facility] [place] [facility] Jun 22, 2024 03:00 PM [facility] Jun 24, 2024 01:00 PM AMBULATORY - MEDICINE [facility] [place] [facility] Jun 28, 2024 11:00 AM AMBULATORY - NONE [facility] [place] [facility] Jul 07, 2024 01:00 PM [facility] Jul 23, 2024 01:30 PM AMBULATORY - MEDICINE CT [facility] [place] [facility] Aug 04, 2024 10:00 AM AMBULATORY - MEDICINE [facility] Aug 25, 2024 10:30 AM AMBULATORY - MEDICINE [facility] [place] [facility] Sep 21, 2024 01:30 PM AMBULATORY [...] 2024 11:54 AM Consult Order [facility] MASSAGE THERAPY Cons Pipe Inspector's Choice [place] Social History: Smoking Status (Most current) and [...] Odalis ity Apr 06, 2024 10:[address]-TOBACCO NEVER USED [place] Tobacco Use History This section includes a history of the smoking, or tobacco-related health factors, that were collected on or before the date of the Encounter. The data comes from the [place] facility where the Encounter took place. Date/Time Smoking Status/Tobacco Use Comment F acility Aug 18, 2020 10:[address]-TOBACCO NEVER USED [place] Dec 15, 2018 12:[address]-TOBACCO NEVER USED [place] Jun 11, 2017 04:15 PM LIFETIME NON-TOBACCO USER [place] Jan 01, 2016 11:12 AM LIFETIME NON-TOBACCO USER [place] Jan 16, 2005 08:54 AM LIFETIME NON-SMOKER [place] Nov 29, 2003 08:05 AM LIFETIME NON-SMOKER [place] Jan 07, 2001 08:33 AM LIFETIME NON-SMOKER [place] Encounter Notes: All associated encounter notes This section contains the clinical notes associated to the Encounter. Date/Time Encounter Note(s) Provider Source Jun 15, 2024 09:53 AM PHYSICAL THERAPY N OTE: LOCAL TITLE: PHYSICAL THERAPY STANDARD TITLE: PHYSICAL THERAPY NOTE DATE OF NOTE: JUN 15, 2024@09:53 ENTRY DATE: JUN 15, 2024@09:53:38 AUTHOR: HERO MEDRANO EXP COSIGNER: URGENCY: STATUS: COMPLETED Initial Evaluation date:05/17/24 Re-evaluation date: 06/16/24 Treatment #: 3 Treatment time: 30 Diagnosis: Other Idiopathic Peripheral Autonomic Neuropathy(ICD-10-CM G90.09) Provider: ABDIRAHMAN LAKE Pt identified by: full name and SUBJECTIVE: patient states they are doing well today. unsure if their balance is improving. OBJECTIVE: Therapeutic Exercise: Mins: 18 Nustep 6mins sit to stand 2x15 seated hip abduction with band 2x30s blue band standing hip abduction with band 2x15 yellow band heel toe raises 2x15 Manual therapy: Mins: Neuro re-ed: Mins: 12 airex balance eyes open 30s airex balance eyes closed 30s airex semi tandem 30s airex torso rotations 30s single cone tapping 2x10 cone tapping in semi [place] goshute 1min Other: Mins: Modalities: Mins: [] contraindication screen completed prior to modality [] skin intact pre/post modality Access Code: [email or web address] URL: [email or web address] Date: 05/17/2024 Prepared by: Hero Medrano Exercises [...] through progressions in LE strengthening exercises and static and dynamic balance activities on level surfaces and foam with good performance from patient. No LOB noted throughout visit. Patient with some difficulty with cone tapping with accuracy with foot placement. Advised to continue current HEP, will reassess next visit. PLAN: Progress static balance [...] HERO MEDRANO PT, DPT PHYSICAL THERAPIST Signed: 06/15/2024 10:22 HERO MEDRANO [place]
--- OUTSIDE RECORDS SUMMARY | 2024-06-29 19:09 | XMS_ITS | Encounter Summary ---
Author Name [facility] [place] [facility] [place] Address [address] [place] [address] Care Team Providers Care Winch Derrick Operator Name Role Phone ABDIRAHMAN LAKE Primary [...] BASIC FAMIL Y Jun 24, 2009 112 [id number] [phone] ABHILASH GARAY PATIENT ANTHEM BCBS [place] F[place] PREFERRED PROVIDER ORGANIZAT ION (PPO) FEP BASIC FAM Jun 24, 2009 112 [id number] [phone] ABHILASH GARAY PATIENT ANTHEM BCBS [place] F[place] PREFERRED PROVIDER ORGANIZAT ION (PPO) FEP BASIC FAM Jun 24, 2009 112 [id number] [phone] ABHILASH GARAY PATIENT ANTHEM [place] PREFERRED PROVIDER ORGANIZAT ION (PPO) FEP BASIC FAM Jun 24, 2009 112 [id number] [phone] ABHILASH GARAY PATIENT [place]BS [place] F[place] PREFERRED PROVIDER ORGANIZAT ION (PPO) FEP BASIC FAM Jun 24, 2009 112 [id number] [phone] ABHILASH GARAY PATIENT BCBS [place] F[place] PREFERRED PROVIDER ORGANIZAT ION (PPO) BASIC FAMIL Y Jun 24, 2009 112 [id number] [phone] ABHILASH GARAY PATIENT [place] PREFERRED PROVIDER ORGANIZAT ION (PPO) BASIC FAMIL Y Jun 24, 2009 112 [id number] [phone] ABHILASH GARAY PATIENT [place] FEP PREFERRED PROVIDER ORGANIZAT ION (PPO) BASIC FAMIL Y Jun 24, 2009 112 [id number] ABHILASH GARAY PATIENT [place] F[place] DENTAL DENTAL INSURANCE BASIC Jul 12, 2009 DENTAL [id number] [phone] ABHILASH GARAY PATIENT [place] FEP PREFERRED PROVIDER ORGANIZAT ION (PPO) BASIC FAMIL Y Jun 24, 2009 [id number] ABHILASH GARAY PATIENT [employer] FEP ([id number]) PRESCRIPT ION FEPRX Jun 24, 2009 [id number] [phone] ABHILASH GARAY PATIENT [employer] FEP BCBS PRESCRIPT ION CAREM ARK FEPRX PLAN Nov 21, 2021 [id number] ABHILASH GARAY PATIENT [employer] FEPRX PLAN PRESCRIPT ION CAREM ARK FEPRX Nov 21, 2021 [id number] ABHILASH GARAY PATIENT [employer]-F EP BCBS PRESCRIPT ION FEP CAREM ARK Nov 21, 2021 [id number] ABHILASH GARAY PATIENT [employer]-F EP BCBS PRESCRIPT ION FEP Jun 23, 2010 [id number] RUBI GARAYNETH PATIENT MEDICARE (WNR) MEDICARE (M) PART A Feb 22, 2020 PART A [id number] [id number] ABHILASH GARAY PATIENT MEDICARE (WNR) MEDICARE (M) PART A Feb 22, 2020 PART A [id number] [phone] ABHILASH GARAY PATIENT MEDICARE (WNR) MEDICARE (M) PART A Feb 22, 2020 PART A [id number] ABHILASH GARAY PATIENT MEDICARE (WNR) MEDICARE (M) PART A Feb 22, 2020 PART A [id number] [phone] ABHILASH GARAY PATIENT MEDICARE (WNR) MEDICARE (M) PART A Feb 22, 2020 PART A [id number] [id number] ABHILASH GARAY PATIENT Selected Encounter This section includes the information on record at [place] for the Encounter. Date/Time Encounter Type Encounter Description Reason Provider Source Jun 08, 2024 03:00 PM NEUROMUSCULAR REEDUCATION PHYSICAL THERAPY ICD-10-CM G90.09 Other idiopathic peripheral autonomic neuropathy JESSICA MEDRANO Fran Encounter Template Text not used by [place] Assessments - Encounter Diagnoses This section includes the primary and secondary diagnoses documented for the Encounter. Date/Time Primary/Secondary Diagnosis Diagnosis Name Provider Source Jun 09, 2024 03:23 PM PRIMARY Other idiopathic peripheral autonomic neuropathy HERO MEDRANO Plan of Treatment: Future Appointments (+ 6 months) and Future Tests (+/- 45 days) The Plan of Treatment section includes [facility] care [facility] the [facility] [place] [facility] This section includes future appointments [...] 11, 2024 02:00 PM AMBULATORY - REHAB [facility] Jun 14, 2024 10:30 AM AM[place]UL[place]ORY [place]ICINE [place] [facility] Jun 15, 2024 10:00 AM [facility] Jun 22, 2024 11:30 AM [place] [facility] Jun 22, 2024 03:00 PM AMBULATORY - REHAB [facility] Jun 24, 2024 01:00 PM AMBULATORY - MEDICINE [place] [facility] Jun 28, 2024 11:00 AM AMBULATORY - NONE [place] [facility] Jul 07, 2024 01:00 PM AMBULATORY - [place]IC[place] Jul 23, 2024 01:30 PM AMBULATORY - MEDICINE [place] [facility] Aug 04, 2024 10:00 AM AMBULATORY - MEDICINE [place] [facility] Aug 25, 2024 10:30 AM AMBULATORY - MEDICINE [place] [facility] Sep 21, 2024 01:30 PM [...] of theEncounter. The data comes from all [place] treatment facilities. Test Date/Time Test Type Test Details Facility Name Jun 01, 2024 11:54 AM Consult Order [facility] MASSAGE THERAPY Cons Communications Field Technician's Choice [place] Social History: Smoking Status (Most current) and [...] Odalis casey Apr 06, 2024 10:30 AM [place]-TOBACCO NEVER USED [place] Tobacco Use History This section includes a history of the smoking, or tobacco-related health factors, that were collected on or before the date of the Encounter. The data comes from the [place] facility where the Encounter took place. Date/Time Smoking Status/Tobacco Use Comment F acility Aug 18, 2020 10:00 AM [place]-TOBACCO NEVER USED [place] Dec 15, 2018 12:14 PM [place]-TOBACCO NEVER USED [place] Jun 11, 2017 04:15 PM LIFETIME NON-TOBACCO USER [place] Jan 01, 2016 11:12 AM LIFETIME NON-TOBACCO USER [place] Jan 16, 2005 08:54 AM LIFETIME NON-SMOKER [place] Nov 29, 2003 08:05 AM LIFETIME NON-SMOKER [place] Jan 07, 2001 08:33 AM LIFETIME NON-SMOKER [place] Encounter Notes: All associated encounter notes This section contains the clinical notes associated to the Encounter. Date/Time Encounter Note(s) Provider Source Jun 08, 2024 02:53 PM PHYSICAL THERAPY N OTE: LOCAL TITLE: PHYSICAL THERAPY STANDARD TITLE: PHYSICAL THERAPY NOTE DATE OF NOTE: JUN 08, 2024@14:53 ENTRY DATE: JUN 08, 2024@14:53:17 AUTHOR: HERO MEDRANO EXP COSIGNER: URGENCY: STATUS: COMPLETED Initial Evaluation date:05/17/24 Date of note: 05/17/24 Re-evaluation date: 06/16/24 Treatment #: 1 Treatment time: 30 Diagnosis: Other Idiopathic Peripheral Autonomic Neuropathy(ICD-10-CM G90.09) Provider: ABDIRAHMAN LAKE Pt identified by: full name and Resting Vitals: HR: 67 SPO2: 96% BP: 130/70 SUBJECTIVE: Patient reports toe pain that is sporadic, limited their walking tolerance. Patient has good HEP adherence reports that they are performing exercises about 3-4 times week. OBJECTIVE: Therapeutic Exercise: Mins: 15 - Nustep 10 minutes - Step ups with knee drive 2x10 Manual therapy: Mins: Neuro re-ed: Mins: 10 - Static balance: EO 2x30 , tandem stance 2x30 B - Dynamic balance: Obstacle course 8minutes Other: Mins: Modalities: Mins: [] contraindication screen completed prior to modality [] skin intact pre/post modality Access Code: [email or web address] URL: [email or web address] Date: 05/17/2024 Prepared by: Hero Medrano Exercises [...] ASSESSMENT: Patient was seen for routine follow up regarding gait and balance impairments. Patient tolerates static balance exercises well with minimal sway with eyes closed requiring supervision. Patient has moderate sway and difficulty with tandem stance requiring contact guard. Patient has moderate difficulty with obstacle course with LOBx2 needing gInacia to regain balance when trying to clear short hurdles. PLAN: Progress static balance exercises, continue with [...] Biofreeze This visit was primarily performed by [facility], however, I, Hero Medrano PT, DPT, was present during the course of this visit in its entirety providing direct supervision for this student. I agree with treatment and plan of care as stated. /yunior/ HERO MEDRANO PT, DPT PHYSICAL THERAPIST Signed: 06/09/2024 15:24 HERO MEDRANO
--- OUTSIDE RECORDS SUMMARY | 2024-06-29 19:09 | XMS_ITS | Encounter Summary ---
Author Name [facility] [place] [facility] [place] Address [address] [place] [address] Care Team Providers Care Para Operator Name Role Phone ABDIRAHMAN LAKE Primary [...] BASIC FAMIL Y Jun 24, 2009 112 [id number] [phone] ABHILASH GARAY PATIENT ANTHEM BCBS [place] F[place] PREFERRED PROVIDER ORGANIZAT ION (PPO) FEP BASIC FAM Jun 24, 2009 112 [id number] [phone] ABHILASH GARAY PATIENT ANTHEM [place] PREFERRED PROVIDER ORGANIZAT ION (PPO) FEP BASIC FAM Jun 24, 2009 112 [id number] [phone] ABHILASH GARAY PATIENT [place] PREFERRED PROVIDER ORGANIZAT ION (PPO) FEP BASIC FAM Jun 24, 2009 112 [id number] [phone] ABHILASH GARAY PATIENT [place] PREFERRED PROVIDER ORGANIZAT ION (PPO) FEP BASIC FAM Jun 24, 2009 112 [id number] [phone] ABHILASH GARAY PATIENT [place] PREFERRED PROVIDER ORGANIZAT ION (PPO) BASIC FAMIL Y Jun 24, 2009 112 [id number] ABHILASH GARAY PATIENT [place] F[place] PREFERRED PROVIDER ORGANIZAT ION (PPO) BASIC FAMIL Y Jun 24, 2009 112 [id number] ABHILASH GARAY PATIENT [place] F[place] PREFERRED PROVIDER ORGANIZAT ION (PPO) BASIC FAMIL Y Jun 24, 2009 112 [id number] [phone] ABHILASH GARAY PATIENT [place] F[place] DENTAL DENTAL INSURANCE BASIC Jul 12, 2009 DENTAL [id number] ABHILASH GARAY PATIENT [place] PREFERRED PROVIDER ORGANIZAT ION (PPO) BASIC FAMIL Y Jun 24, 2009 112 [id number] [phone] ABHILASH GARAY PATIENT [employer] FEP ([id number]) PRESCRIPT ION FEPRX Jun 24, 2009 [id number] [phone] ABHILASH GARAY PATIENT [employer] FEP BCBS PRESCRIPT ION CAREM ARK FEPRX PLAN Nov 21, 2021 [id number] ABHILASH GARAY PATIENT [employer] FEPRX PLAN PRESCRIPT ION CAREM ARK FEPRX Nov 21, 2021 [id number] ABHILASH GARAY PATIENT [employer]-F EP BCBS PRESCRIPT ION FEP CAREM ARK Nov 21, 2021 [id number] ABHILASH GARAY PATIENT [employer]-F EP BCBS PRESCRIPT ION FEP Jun 23, 2010 [id number] RUBI GARAYNETH PATIENT MEDICARE (WN) MEDICARE () PART A Feb 22, 2020 PART A [id number] ABHILASH GARAY PATIENT MEDICARE (WN) MEDICARE () PART A Feb 22, 2020 PART A [id number] ABHILASH GARAY PATIENT MEDICARE (WNR) MEDICARE (M) PART A Feb 22, 2020 PART A [id number] [phone] ABHILASH GARAY PATIENT MEDICARE (WNR) MEDICARE (M) PART A Feb 22, 2020 PART A [id number] ABHILASH GARAY PATIENT MEDICARE (WNR) MEDICARE (M) PART A Feb 22, 2020 PART A [id number] ABHILASH GARAY PATIENT Selected Encounter This section includes the [place] at [place] for the Encounter. Date/Time Encounter Type Encounter Description Reason Pro vider Source Jun 10, 2024 02:54 PM Outpatient Encounter PHYSICAL THERAPY IHE Encounter Template [...] AM[facility]UL[facility]ORY [facility] Jun 11, 2024 02:00 PM [facility] Jun 14, 2024 10:30 AM AM[place]ULATORY - [place] [facility] Jun 15, 2024 10:00 AM [facility]ULATORY [facility] Jun 22, 2024 11:30 AM AMBULATORY - MEDICINE [place] [facility] Jun 22, 2024 03:00 PM [facility]ULATORY [facility] Jun 24, 2024 01:00 PM AMBULATORY - MEDICINE [place] [facility] Jun 28, 2024 11:00 AM AMBULATORY - NONE [place] [facility] Jul 07, 2024 01:00 PM AMBULATORY - MEDICINE [facility] Jul 23, 2024 01:30 PM AMBULATORY - MEDICINE [place] [facility] Aug 04, 2024 10:00 AM AMBULATORY - MEDICINE [place] [facility] Aug 25, 2024 10:30 AM AMBULATORY - MEDICINE [place] [facility] Sep 21, 2024 01:30 [...] Order [facility] MASSAGE THERAPY Cons String Studies Director's [facility] Social History: Smoking Status (Most [...] Odalis mosleyy Apr 08, 2023 09:12 AM [place]-TOBACCO NEVER USED [facility] Tobacco Use History This section includes a history of the smoking, or tobacco-related health factors, that were collected on or before the date of the Encounter. The data comes from the [place] facility where the Encounter took place. Date/Time Smoking Status/Tobacco Use Comment F acility Aug 09, 2021 09:20 AM [place]-TOBACCO NEVER USED [facility] Encounter Notes: All associated encounter notes This section contains the clinical notes associated to the Encounter. Date/Time Encounter Note(s) Provider Source Jun 10, 2024 02:54 PM ADMINISTRATIVE NOT E: LOCAL TITLE: ADMINISTRATIVE NOTE STANDARD TITLE: ADMINISTRATIVE NOTE DATE OF NOTE: JUN 10, 2024@14:54 ENTRY DATE: JUN 10, 2024@14:54:53 AUTHOR: IVAN ROTH COSIGNER: URGENCY: STATUS: COMPLETED ADMINISTRATIVE NOTE Has ADDENDA Davenport called and received the aid to put his compression stockings on but now needs and aid to get them off. /es/ IVAN ROTH Signed: 06/10/2024 14:56 Receipt Acknowledged By: 06/11/2024 07:13 /yunior/ CARLOS BENDER PT, DPT PHYSICAL THERAPIST 06/11/2024 ADDENDUM STATUS: COMPLETED Prosthetics consult for horace schrader off placed today with item to be shipped to 's home. /yunior/ CARLOS BENDER PT, DPT PHYSICAL THERAPIST Signed: 06/11/2024 07:16 IVAN ROTH
--- OUTSIDE RECORDS SUMMARY | 2024-06-29 19:09 | XMS_ITS | Encounter Summary ---
Author Name [facility] [place] [facility] [place] Organization [facility] [place] Address [address] [place] [address] Care Team Providers Care Underground Supervisor Name Role Phone ABDIRAHMAN LAKE Primary [...] BASIC FAMIL Y Jun 24, 2009 112 [id number] [phone] ABHILASH GARAY PATIENT ANTHEM BCBS [place] FEP PREFERRED PROVIDER ORGANIZAT ION (PPO) FEP BASIC FAM Jun 24, 2009 112 [id number] [phone] ABHILASH GARAY PATIENT ANTHEM [place]BS [place] F[place] PREFERRED PROVIDER ORGANIZAT ION (PPO) FEP BASIC FAM Jun 24, 2009 112 [id number] [phone] ABHILASH GARAY PATIENT ANTHE[place] PREFERRED PROVIDER ORGANIZAT ION (PPO) FEP BASIC FAM Jun 24, 2009 112 [id number] [phone] ABHILASH GARAY PATIENT [place] PREFERRED PROVIDER ORGANIZAT ION (PPO) FEP BASIC FAM Jun 24, 2009 112 [id number] [phone] RUBI GARAYNETH PATIENT [place]BS [place] F[place] PREFERRED PROVIDER ORGANIZAT ION (PPO) BASIC FAMIL Y Jun 24, 2009 [id number] RUBI GARAYNETH PATIENT [place] FEP PREFERRED PROVIDER ORGANIZAT ION (PPO) BASIC FAMIL Y Jun 24, 2009 112 [id number] RUBI GARAYNETH PATIENT [place] FEP PREFERRED PROVIDER ORGANIZAT ION (PPO) BASIC FAMIL Y Jun 24, 2009 [id number] RUBI GARAYNETH PATIENT [place] F[place] DENTAL DENTAL INSURANCE BASIC Jul 12, 2009 DENTAL [id number] DEJAHDANIKARUBI ACEVESNETH PATIENT [place] F[place] PREFERRED PROVIDER ORGANIZAT ION (PPO) BASIC FAMIL Y Jun 24, 2009 [id number] ABHILASH GARAY PATIENT [employer] FEP ([id number]) PRESCRIPT ION FEPRX Jun 24, 2009 [id number] [phone] ABHILASH GARAY PATIENT [place] FEP BCBS PRESCRIPT ION CAREM ARK FEPRX PLAN Nov 21, 2021 [id number] ABHILASH GARAY PATIENT [employer] FEPRX PLAN PRESCRIPT ION CAREM ARK FEPRX Nov 21, 2021 [id number] ABHILASH GARAY PATIENT [employer]-F EP BCBS PRESCRIPT ION FEP CAREM ARK Nov 21, 2021 [id number] ABHILASH GARAY PATIENT [employer]-F EP BCBS PRESCRIPT ION FEP Jun 23, 2010 [id number] RUBI GARAYNETH PATIENT MEDICARE ([facility] MEDICARE () PART A Feb 22, 2020 PART A [id number] ABHILASH GARAY PATIENT MEDICARE (WNR) MEDICARE (M) PART A Feb 22, 2020 PART A [id number] ABHILASH GARAY PATIENT MEDICARE (WNR) MEDICARE (M) PART A Feb 22, 2020 PART A [id number] [id number] [id number] ABHILASH GARAY PATIENT MEDICARE (WNR) MEDICARE (M) PART A Feb 22, 2020 PART A [id number] [id number] [phone] ABHILASH GARAY PATIENT MEDICARE (WNR) MEDICARE (M) PART A Feb 22, 2020 PART A [id number] ABHILASH GARAY PATIENT Selected Encounter This section includes the information on record at [place] for the Encounter. Date/Time Encounter Type Encounter Description Reason Pro vider Source Jun 16, 2024 10:54 AM Outpatient Encounter ADMIN PAT ACTIVTIES (MASNONCT) [...] - MEDICINE [place] [facility] Jun 22, 2024 03:00 [facility] Jun 24, 2024 01:00 PM AM[place]ULATORY - [place]IC[place] [facility] Jun 28, 2024 11:00 AM AMBULATORY - NONE [place] [facility] Jul 07, 2024 01:00 [facility], [facility]24 01:30 PM [facility] - MEDICINE [place] [facility] Aug 04, 2024 10:00 AM AMBULATORY - MEDICINE [place] [facility] Aug 25, 2024 10:30 AM AM[place]ULATORY [place] [facility] Sep 21, 2024 01:30 PM [place] Oct 05, 2024 11:00 AM [facility] Active, Pending, and Scheduled Orders [...] Jun 01, 2024 11:54 AM Consult Order [facility] MASSAGE THERAPY Cons Operator [employer]'s [facility] Social History: Smoking Status (Most current) [...] 2023 09:12 AM [place]-TOBACCO NEVER USED [facility] Tobacco Use History This section includes a history of the smoking, or tobacco-related health factors, that were collected on or before the date of the Encounter. The data comes from the [place] facility where the Encounter took place. Date/Time Smoking Status/Tobacco Use Comment F darvin Aug 09, 2021 09:20 AM [place]-TOBACCO NEVER USED [facility] Encounter Notes: All associated encounter notes This section contains the clinical notes associated to the Encounter. Date/Time Encounter Note(s) Provider Source Jun 16, 2024 10:54 AM RN PROGRESS NOTE: LOCAL TITLE: CCC: CLINICAL TRIAGE STANDARD TITLE: RN PROGRESS NOTE DATE OF NOTE: JUN 16, 2024@10:54 ENTRY DATE: JUN 16, 2024@10:54:43 AUTHOR: BRIAN CRISTINA EXP COSIGNER: URGENCY: STATUS: COMPLETED Verified demographics [place] is requesting a renewal of the following medications; ALLOPURINOL 100MG TAB () POTASSIUM CITRATE 10MEQ SA TAB /yunior/ BRIAN CRISTINA AMSA Signed: 06/16/2024 10:55 Receipt Acknowledged By: 06/17/2024 08:27 /es/ LUNA LOPEZ ADVANCED SOFTWARE EDUCATOR 06/17/2024 08:16 /es/ STEF BAKERN RN- REGISTERED NURSE 06/17/2024 09:47 /es/ EUGENIE SALVADOR LPN Licensed Practical Nurse BRIAN CRISTINA [facility]
--- OUTSIDE RECORDS SUMMARY | 2024-06-29 19:09 | XMS_ITS | Encounter Summary ---
Author Name [place] Address [address] [place] [address] Care Team Providers Care Electronic Design Engineer Name Role Phone ABDIRAHMAN LAKE Primary [...] BASIC FAMIL Y Jun 24, 2009 [id number] [phone] ABHILASH GARAY PATIENT ANTHEM BCBS [place] F[place] PREFERRED PROVIDER ORGANIZAT ION (PPO) FEP BASIC FAM Jun 24, 2009 112 [id number] [phone] ABHILASH GARAY PATIENT ANTHEM [place]BS [place] F[place] PREFERRED PROVIDER ORGANIZAT ION (PPO) FEP BASIC FAM Jun 24, 2009 112 [id number] [phone] ABHILASH GARAY PATIENT ANTHEM [place] PREFERRED PROVIDER ORGANIZAT ION (PPO) FEP BASIC FAM Jun 24, 2009 112 [id number] [phone] ABHILASH GARAY PATIENT [place]BS [place] F[place] PREFERRED PROVIDER ORGANIZAT ION (PPO) FEP BASIC FAM Jun 24, 2009 112 [id number] [phone] ABHILASH GARAY PATIENT BCBS [place] F[place] PREFERRED PROVIDER ORGANIZAT ION (PPO) BASIC FAMIL Y Jun 24, 2009 [id number] 62 ABHILASH GARAY PATIENT [place] PREFERRED PROVIDER ORGANIZAT ION (PPO) BASIC FAMIL Y Jun 24, 2009 [id number] ABHILASH GARAY PATIENT [place] F[place] PREFERRED PROVIDER ORGANIZAT ION (PPO) BASIC FAMIL Y Jun 24, 2009 [id number] ABHILASH GARAY PATIENT [place] FEP DENTAL DENTAL INSURANCE BASIC Jul 12, 2009 DENTAL [id number] 62 ABHILASH GARAY PATIENT [place] F[place] PREFERRED PROVIDER ORGANIZAT ION (PPO) BASIC FAMIL Y Jun 24, 2009 [id number] 62 ABHILASH GARAY PATIENT [employer] FEP ([id number]) PRESCRIPT ION FEPRX Jun 24, 2009 [id number] [phone] ABHILASH GARAY PATIENT [employer] FEP BCBS PRESCRIPT ION CAREM ARK FEPRX PLAN Nov 21, 2021 [id number] ABHILASH GARAY PATIENT [employer] FEPRX PLAN PRESCRIPT ION CAREM ARK FEPRX Nov 21, 2021 [id number] ABHILASH GARAY PATIENT [employer]-F EP BCBS PRESCRIPT ION FEP CAREM ARK Nov 21, 2021 [id number] ABHILASH GARAY PATIENT [employer]-F EP BCBS PRESCRIPT ION FEP Jun 23, 2010 [id number] RUBI GARAYNETH PATIENT MEDICARE (WN) MEDICARE () PART A Feb 22, 2020 PART A [id number] [phone] ABHILASH GARAY PATIENT MEDICARE (WN) MEDICARE () PART A Feb 22, 2020 PART A [id number] [phone] ABHILASH GARAY PATIENT MEDICARE (WNR) MEDICARE (M) PART A Feb 22, 2020 PART A [id number] ABHILASH GARAY PATIENT MEDICARE (WNR) MEDICARE (M) PART A Feb 22, 2020 PART A [id number] ABHILASH GARAY PATIENT MEDICARE (WNR) MEDICARE (M) PART A Feb 22, 2020 PART A [id number] ABHILASH GARAY PATIENT Selected Encounter This section includes the information on record at [place] for the Encounter. Date/Time Encounter Type Encounter Description Reason Provider Source Jun 14, 2024 10:30 AM INFRARED THERAPY CI TREATMENT ICD-10-CM M54.16 Radiculopathy , lumbar region JV RODAS HER M [facility] Encounter Template Text not used by [place] Assessments - Encounter Diagnoses This section includes the primary and secondary diagnoses documented for the Encounter. Date/Time Primary/Secondary Diagnosis Diagnosis Name Provider Source Jun 14, 2024 11:20 AM PRIMARY Radiculopathy, lumbar region MANOHARUNGRACE GALLEGOS PHER M [place] [facility] [facility] Jun 14, 2024 11:20 AM SECONDARY Other idiopathic peripheral autonomic neuropathy GRACE RODAS PHER M [place] [facility] [facility] Jun 14, 2024 11:20 AM SECONDARY Pain in left knee MANOHARUNJOSE MANUEL GALLEGOSO PHER M [place] [facility] [place] [facility] Jun 14, 2024 11:20 AM SECONDARY Pain in right knee GRACE RODAS PHER M [place] [facility] [place] [facility] Jun 14, 2024 11:20 AM SECONDARY Paresthesia of skin GRACE RODAS PHER M [place] [facility] [facility] Plan of Treatment: Future Appointments [...] The data comes from all [place] treatment [facility]. Appointment Date/Time Appointment Type Appointme nt Facility Name Jun 15, 2024 10:00 AM AMBULATORY - RE[facility]AB [facility] Jun 22, 2024 11:30 AM AMBULATORY - MEDICINE [place] C [place] [facility] Jun 22, 2024 03:00 PM AMBULATORY - RE[facility]AB MEDICIN [place] Jun 24, 2024 01:00 PM AMBULATORY - MEDICINE [place] C [place] [facility] Jun 28, 2024 11:00 AM AMBULATORY - NONE [place] [facility] [facility] Jul 07, 2024 01:00 PM [facility] Jul 23, 2024 01:30 PM AMBULATORY - MEDICINE [place] C [place] [facility] Aug 04, 2024 10:00 AM AMBULATORY - MEDICINE [place] C [place] [facility] Aug 25, 2024 10:30 AM AMBULATORY - MEDICINE [place] C [place] [facility] Sep 21, 2024 01:30 PM [...] of theEncounter. The data comes from all [facility]. Test Date/Time Test Type Test Details Facility Name Jun 01, 2024 11:54 AM Consult Order [facility] Cons Industrial Technology Teacher's Choice [place] Social History: Smoking Status (Most current) and [...] 08, 2023 09:12 AM VA-TOBACCO NEVER USED [place] [facility] Tobacco Use History This section includes a history of the smoking, or tobacco-related health factors, that were collected on or before the date of the Encounter. The data comes from the [place] facility where the Encounter took place. Date/Time Smoking Status/Tobacco Use Comment Gilberto boston Aug 09, 2021 09:20 AM VA-TOBACCO NEVER USED [place] [facility] Encounter Notes: All associated encounter notes This section contains the clinical notes associated to the Encounter. Date/Time Encounter Note(s) Provider Source Jun 14, 2024 11:17 AM ACUPUNCTURE NOTE: LOCAL TITLE: ACUPUNCTURE TREATMENT STANDARD TITLE: ACUPUNCTURE NOTE DATE OF NOTE: JUN 14, 2024@11:17 ENTRY DATE: JUN 14, 2024@11:17:41 AUTHOR: DEE RODAS EXP COSIGNER: URGENCY: STATUS: [...] HYPERLIPIDEMIA NEC/NOS 272.4 11/26/2010 GREGG HARMON Date May CC / HPI - presents with 2 complaints. Primary complaint is low back pain. [place] states pain across the lumbar spine states [...] he calls twinges and jabs with movement. [place] states when he is over active his [...] foot when he was in the service. [place] states he gets stabbing pain that can cause him to limp periodically. Anitha states that he has sleep apnea uses a CPAP. He reports he does well with the CPAP machine and gets approximately 9 hours of sleep per night. [place] reports he has a good appetite but his diet could be better. Anitha is diabetic. Anitha has a history of thyroid and skin cancer. Anitha had his thyroid removed last year. states he gets cold easily. Digestion: Anitha has history of GERD but no other issues. No discomfort reported. Bowel movements regular and unremarkable. Urine normal. RESPONSE TO PREVIOUS TREATMENT. Anitha states that his foot neuropathy is still about the same. Anitha has an EMG appointment is scheduled in the next week or so. Anitha states that his low back has been doing better with a combination of the chiropractic and yoga but he still has some residual low back pain. Anitha states that he still has bilateral knee pain but knee pain is moderate today 09/30. _ OBJECTIVE General: . Patient in no [...] ]Pyonex Needle: remove prior to bathing per remotely piloted vehicle controller INFORMED CONSENT: Oral Consent obtained on May The patient was positioned comfortably. Oral consent [...] ]Hip / Glute Area: [ ] RUE: LI 4 [ ] LUE: LI 4 [X] RLE: ST 34, SP 10, Xiyan, GB 34, ST 36, GB 40, Bafeng [X] LLE: ST 34, SP 10, Xiyan, GB 34, ST 36, GB 40, [...] a new consult is required /yunior/ DEE RODSA LA.C DIPL.AC HELMINTHOLOGY TEACHER Signed: 06/14/2024 11:20 DEE RODAS CNTRL WSTRN [facility]
--- OUTSIDE RECORDS SUMMARY | 2024-06-29 19:10 | XMS_ITS | Encounter Summary ---
Author Name [facility] [place] Address [address] [place] [address] Care Team Providers Care Latex Dipper Name Role Phone ABDIRAHMAN LAKE Primary Care Provider Libetry wilkes Insurance Providers: All historical and current [...] BASIC FAMIL Y Jun 24, 2009 112 [id number] [phone] ABHILASH GARAY PATIENT ANTHEM BCBS [place] F[place] PREFERRED PROVIDER ORGANIZAT ION (PPO) FEP BASIC FAM Jun 24, 2009 [id number] [phone] ABHILASH GARAY PATIENT ANTHEM [place] F[place] PREFERRED PROVIDER ORGANIZAT ION (PPO) FEP BASIC FAM Jun 24, 2009 112 [id number] [phone] ABHILASH GARAY PATIENT [place] PREFERRED PROVIDER ORGANIZAT ION (PPO) FEP BASIC FAM Jun 24, 2009 112 [id number] [phone] ABHILASH GARAY PATIENT [place] PREFERRED PROVIDER ORGANIZAT ION (PPO) FEP BASIC FAM Jun 24, 2009 112 [id number] [phone] ABHILASH GARAY PATIENT [place] PREFERRED PROVIDER ORGANIZAT ION (PPO) BASIC FAMIL Y Jun 24, 2009 [id number] ABHILASH GARAY PATIENT [place] PREFERRED PROVIDER ORGANIZAT ION (PPO) BASIC FAMIL Y Jun 24, 2009 [id number] ABHILASH GARAY PATIENT [place] PREFERRED PROVIDER ORGANIZAT ION (PPO) BASIC FAMIL Y Jun 24, 2009 [id number] ABHILASH GARAY PATIENT [place] F[place] DENTAL DENTAL INSURANCE BASIC Jul 12, 2009 DENTAL [id number] ABHILASH GARAY PATIENT [place] F[place] PREFERRED PROVIDER ORGANIZAT ION (PPO) BASIC FAMIL Y Jun 24, 2009 [id number] ABHILASH GARAY PATIENT [employer] FEP ([id number]) PRESCRIPT ION FEPRX Jun 24, 2009 [id number] [phone] ABHILASH GARAY PATIENT [employer] FEP BCBS PRESCRIPT ION CAREM ARK FEPRX PLAN Nov 21, 2021 [id number] ABHILASH GARAY PATIENT [employer] FEPRX PLAN PRESCRIPT ION CAREM ARK FEPRX Nov 21, 2021 [id number] ABHILASH AGRAY PATIENT [employer]-F EP BCBS PRESCRIPT ION FEP CAREM ARK Nov 21, 2021 [id number] ABHILASH GARAY PATIENT [employer]-F EP BCBS PRESCRIPT ION FEP Jun 23, 2010 [id number] URBI GARAYNETH PATIENT MEDICARE (WN) MEDICARE () PART A Feb 22, 2020 PART A [id number] ABHILASH GARAY PATIENT MEDICARE (WN) MEDICARE () PART A Feb 22, 2020 PART A [id number] ABHILASH GARAY PATIENT MEDICARE (WNR) MEDICARE (M) PART A Feb 22, 2020 PART A [id number] ABHILASH GARAY PATIENT MEDICARE (WNR) MEDICARE (M) PART A Feb 22, 2020 PART A [id number] ABHILASH GARAY PATIENT MEDICARE (WNR) MEDICARE (M) PART A Feb 22, 2020 PART A [id number] [phone] ABHILASH GARAY PATIENT Selected Encounter This section includes the information on record at [place] for the Encounter. Date/Time Encounter Type Encounter Description Reason Pro vider Source Jun 21, 2024 09:10 AM Outpatient Encounter PAIN CLINIC IHE Encounter [...] C [place]L [place] [facility] Jun 22, 2024 03:00 PM [facility] [place] Jun 24, 2024 01:00 PM AMBULATORY - MEDICINE [place] [facility] Jun 28, 2024 11:00 AM AMBULATORY - NONE [place] [facility] Jul 07, 2024 01:00 PM AM[facility]ULATORY - MEDICINE [facility] Jul 23, 2024 01:30 PM AMBULATORY - MEDICINE [place] C [place] [facility] Aug 04, 2024 10:00 AM AMBULATORY - MEDICINE [place] [facility] Aug 25, 2024 10:30 AM AMBULATORY - MEDICINE [place] [facility] Sep 21, 2024 01:30 PM AMBULATORY - MEDICINE [place] [place] Oct 05, 2024 11:00 AM AMBULATORY - MEDICINE [facility] Active, Pending, and Scheduled Orders This [...] 01, 2024 11:54 AM Consult Order [facility]AGE THERAPY Cons Calculus Teacher's [facility] Social History: Smoking Status (Most [...] F acjaved Aug 09, 2021 09:20 AM [place]-TOBACCO NEVER USED [facility] Encounter Notes: All associated encounter notes This section contains the clinical notes associated to the Encounter. Date/Time Encounter Note(s) Provider Source Jun 21, 2024 09:10 AM TELEPHONE ENCOUNTE R NOTE: LOCAL TITLE: TELEPHONE NOTE/SPECIALTY CLINIC STANDARD TITLE: TELEPHONE ENCOUNTER NOTE DATE OF NOTE: JUN 21, 2024@09:10 ENTRY DATE: JUN 21, 2024@09:10:12 AUTHOR: MARIA DOLORES LOPEZ EXP COSIGNER: URGENCY: STATUS: COMPLETED Call attempt was made to remind vet that they have a FTF appt with the Pain clinic on 06/22/2024 at 1130. No answer, lvm. location was confirmed. /yunior/ MARIA DOLORES LOPEZ ADVANCED CONTINUOUS MINING MACHINE LODE MINER Signed: 06/21/2024 09:11 MARIA DOLORES LOEPZ [facility]
--- OUTSIDE RECORDS SUMMARY | 2024-06-29 19:10 | XMS_ITS | Encounter Summary ---
Author Name [facility] [place] Address [address] [place] [address] Care Team Providers Care Mixed Animal Veterinarian Name Role Phone ABDIRAHMAN LAKE Primary Care [...] BASIC FAMIL Y Jun 24, 2009 [id number] [phone] ABHILASH GARAY PATIENT ANTHEM BCBS [place] F[place] PREFERRED PROVIDER ORGANIZAT ION (PPO) FEP BASIC FAM Jun 24, 2009 [id number] [phone] ABHILASH GARAY PATIENT ANTHEM [place] F[place] PREFERRED PROVIDER ORGANIZAT ION (PPO) FEP BASIC FAM Jun 24, 2009 112 [id number] [phone] ABHILASH GARAY PATIENT [place]THE[place] PREFERRED PROVIDER ORGANIZAT ION (PPO) FEP BASIC FAM Jun 24, 2009 112 [id number] [phone] ABHILASH GARAY PATIENT [place] PREFERRED PROVIDER ORGANIZAT ION (PPO) FEP BASIC FAM Jun 24, 2009 112 [id number] [phone] RUBI GARAYNETH PATIENT [place] PREFERRED PROVIDER ORGANIZAT ION (PPO) BASIC FAMIL Y Jun 24, 2009 112 [id number] [phone] ABHILASH GARAY PATIENT [place] F[place] PREFERRED PROVIDER ORGANIZAT ION (PPO) BASIC FAMIL Y Jun 24, 2009 [id number] ABHILASH GARAY PATIENT [place] PREFERRED PROVIDER ORGANIZAT ION (PPO) BASIC FAMIL Y Jun 24, 2009 [id number] RUBI GARAYNETH PATIENT [place] F[place] DENTAL DENTAL INSURANCE BASIC Jul 12, 2009 DENTAL [id number] RUBI GARAYNETH PATIENT [place] PREFERRED PROVIDER ORGANIZAT ION (PPO) BASIC FAMIL Y Jun 24, 2009 [id number] ABHILASH GARAY PATIENT [employer] FEP ([id number]) PRESCRIPT ION FEPRX Jun 24, 2009 [id number] [phone] ABHILASH GARAY PATIENT [employer] FEP BCBS PRESCRIPT ION CAREM ARK FEPRX PLAN Nov 21, 2021 [id number] ABHILASH GARAY PATIENT [employer] FEPRX PLAN PRESCRIPT ION CAREM ARK FEPRX Nov 21, 2021 [id number] ABHILASH GARAY PATIENT [employer]-F EP BCBS PRESCRIPT ION FEP CAREM ARK Nov 21, 2021 [id number] ABHILASH GARAY PATIENT [employer]-F EP BCBS PRESCRIPT ION FEP Jun 23, 2010 [id number] ABHILASH GARAY PATIENT MEDICARE (WN) MEDICARE (M) PART A Feb 22, 2020 PART A [id number] [phone] ABHILASH GARAY PATIENT MEDICARE ([facility]) MEDICARE (M) PART A Feb 22, 2020 PART A [id number] ABHILASH GARAY PATIENT MEDICARE (WNR) MEDICARE (M) PART A Feb 22, 2020 PART A [id number] NV71 [phone] [id number] ABHILASH GARAY PATIENT MEDICARE (WNR) MEDICARE (M) PART A Feb 22, 2020 PART A [id number] NV71 [phone] [id number] ABHILASH GARAY PATIENT MEDICARE (WNR) MEDICARE (M) PART A Feb 22, 2020 PART A [id number] ABHILASH GARAY PATIENT Selected Encounter This section includes the information on record at [place] for the Encounter. Date/Time Encounter Type Encounter Description Reason Provider Source Jun 22, 2024 11:30 AM OFFICE O/P EST HI 40 MIN PAIN CLINIC ICD-10-CM G90.09 Other idiopathic peripheral autonomic neuropathy GIANLUCA DENNISON [facility] Encounter Template Text not used by [place] Assessments - Encounter Diagnoses This section includes the primary and secondary diagnoses documented for the Encounter. Date/Time Primary/Secondary Diagnosis Diagnosis Name Provider Source Jun 22, 2024 12:14 PM PRIMARY Other idiopathic peripheral autonomic neuropathy JUMAGIANLUCA Bryon [place] [facility] Jun 22, 2024 12:14 PM SECONDARY Obesity, unspecified JANISMONEGIANLUCA Slater [place] [facility] Jun 22, 2024 12:14 PM SECONDARY Radiculopathy, lumbar region JUMAGIANLUCA Slater [facility] [place] [facility] Plan of Treatment: Future Appointments [...] Appointment Type Appointme nt Facility Name Jun 24, 2024 01:00 PM AMBULATORY - MEDICINE [facility] Jun 28, 2024 11:00 AM AMBULATORY - NONE [place] [facility] Jul 07, 2024 01:00 PM AMBULATORY - MEDICINE [place] [place] Jul 23, 2024 01:30 PM AMBULATORY - MEDICINE [place] C NTRL [place] [facility] Aug 04, 2024 10:00 AM AMBULATORY - MEDICINE [place] C [place] [facility] Aug 25, 2024 10:30 AM AMBULATORY - MEDICINE [place] C NTRL [place] [facility] Sep 21, 2024 01:30 PM AMBULATORY - MEDICINE [place] [place] Oct 05, 2024 11:00 AM [facility]ATORY - MEDICINE [facility] Active, Pending, and Scheduled Orders This [...] 2024 11:54 AM Consult Order [facility] M[facility]AGE THERAPY Cons Agile Tester's [facility] Social History: Smoking Status (Most [...] F acility Aug 09, 2021 09:20 AM [place]TOBACCO [facility] Encounter Notes: All associated encounter notes This section contains the clinical notes associated to the Encounter. Date/Time Encounter Note(s) Provider Source Jun 22, 2024 09:50 AM [facility] NOTE: LOCAL TITLE: PAIN CLINIC NOTE STANDARD TITLE: PAIN MEDICINE OUTPATIENT NOTE DATE OF NOTE: JUN 22, 2024@09:50 ENTRY DATE: JUN 22, 2024@09:50:42 AUTHOR: GIANLUCA DENNISON COSIGNER: URGENCY: STATUS: COMPLETED Presents for in person pain clinic follow up. 45 minute visit. He continues to have pain in both legs, exacerbated by walking. The Assessment from initial consult visit was read back to him; he endorses its accuracy. He read the side effects of pregabalin and did not want to try it. He recalls adverse effect from gabapentin in the past -- it made him feel suicidal. We discussed the transient nature of most possible side effects of pregabalin, but he is quite clear that he does not want to try it, and does not really want any pain medications. He has been going to PT. He has been using high top shoes which give more ankle support, and also compression stockings. He has found these He is doing chair yoga twice per week, finds it helpful. He tried aqua therapy at a place in [place] through community care a couple months ago. This was somewhat helpful for his leg pain. He reports having restless legs, but does not want to take meds for it. He is not sure if acupuncture is helping; he has one more appointment scheduled. He notes he should be losing weight, but is not really making any specific effort. He is not interested now in MOVE; he says he would not go. Active Outpatient Medications Status === 1) ACETAMINOPHEN 500MG TAB TAKE ONE TABLET BY MOUTH THREE TIMES ACTIVE DAILY NEEDED -- rarely takes it Indication: FOR PAIN 2) ALLOPURINOL 100MG TAB TAKE ONE TABLET BY MOUTH ONCE DAILY ACTIVE FOR GOUT 3) ATORVASTATIN CALCIUM 10MG TAB TAKE ONE TABLET BY MOUTH AT ACTIVE (S) BEDTIME Indication: FOR HIGH CHOLESTEROL 4) CAMPHOR/MENTHOL/METHYL SALICYLATE PATCH APPLY 1 PATCH ACTIVE TOPICALLY ONCE DAILY NEEDED (REMOVE PATCH AFTER 8 TO 12 HOURS) -- used it once, was not helpful Indication: FOR PAIN 5) DILTIAZEM (EQV-CARDIZEM) 120MG 24HR CAP TAKE ONE CAPSULE BY ACTIVE (S) MOUTH ONCE DAILY Indication: FOR HIGH BLOOD PRESSURE 6) FLUOCINONIDE 0.05% TOP SOLN APPLY 5-10 DROPS TO SCALP TWICE ACTIVE (S) DAILY IN THE MORNING & EVENING AND MASSAGE IN. 7) KETOCONAZOLE 2% SHAMPOO SHAMPOO TO DAMP HAIR TOPICALLY ACTIVE DIRECTED BY PROVIDER LEAVE IN FOR 5 MINUTES AND RINSE OUT. USE WHEN SHAMPOOING 8) LEVOTHYROXINE NA (SYNTHROID) 125MCG TAB TAKE ONE TABLET BY ACTIVE MOUTH EVERY MORNING 30 MINUTES BEFORE BREAKFAST TAKE ON AN EMPTY STOMACH WITH A FULL GLASS OF WATER Indication: FOR THYROID 9) METOPROLOL SUCCINATE 50MG SA TAB TAKE ONE TABLET BY MOUTH ACTIVE (S) ONCE DAILY FOR BLOOD PRESSURE/HEART Indication: ATRIAL FIBRILLATION 10) POTASSIUM CITRATE 10MEQ SA TAB TAKE TWO TABLETS BY MOUTH ACTIVE TWICE DAILY Indication: KIDNEY STONES 11) PREGABALIN 25MG ORAL CAP TAKE ONE CAPSULE BY MOUTH TWICE ACTIVE DAILY -- not taking Indication: FOR NERVE PAIN 12) RIVAROXABAN 20MG TAB TAKE ONE TABLET BY MOUTH ONCE DAILY ACTIVE (S) (TAKE WITH FOOD) Indication: TO PREVENT BLOOD CLOTS Active Non-VA Medications Status === 1) Non-VA FISH OIL 500MG DHA/EPA CAP,ORAL BY MOUTH DAILY ACTIVE 2) Non-VA MULTIVITAMIN/MINERALS CAP/TAB 1 TABLET BY MOUTH EVERY ACTIVE DAY 3) Non-VA NIACIN TAB BY MOUTH ACTIVE Tobacco; none Alcohol: none Marijuana: none Comfortable and generally well appearing. Moderate central obesity. (weight steadily increasing). Walks with mild discomfort. Wearing compression stockings. IMPRESSION: 69 year old non-combat [place] 50% service connected for back, foot and hearing issues. He was a moderately heavy drinker for many years but quit alcohol in 2021 after having a severe illness from Covid. He retired from the [employer] service in 2021 and lives in [facility] with his of 40 years; they have no children. He started with some back pain issues in the [place] in the 1970's related to scoliosis. He was bothered by pain off and on for many years. About 10 years ago he started having numbness in his toes, gradually worsening with associated pain. He also has pain in his right [...] combination of lumbar radiculopathy and peripheral neuropathy. An EMG/NCV is scheduled on 08/04/24. He declined to try taking pregabalin because of fear of side effects, and does not want to take any medications for pain. He currently gets a small amount of exercise, but is engaging in PT and weekly chair yoga. Walking is painful for him. He has no history of mental health issues. He sleeps well using CPAP for GLENN. He reports some restless leg symptoms but declines any medication for it. PLAN: 1. He will continue with PT, acupuncture, yoga, cc massage. 2. He declines any additional oral medication for pain. 3. Will dc order for pregabalin since he does not want to take it. 4. He agrees to trial of capsaicin after extensive discussion of possible side effects of burning sensation. 5. He will proceed with EMG/NCV scheduled 08/04/24. 6. f/u in early August to consider possible referral for invasive treatment of lumbar radiculopathy depending up on EMG results. Will likely discharge back to primary care at that point. /yunior/ Gianluca Dennison MD STAFF PHYSICIAN Signed: 06/22/2024 12:14 GIANLUCA DENNISON [place] [facility]
--- OUTSIDE RECORDS SUMMARY | 2024-06-29 19:10 | XMS_ITS | Encounter Summary ---
Author Name [facility] [place] Address [address] [place] [address] Care Team Providers Care Hadoop Consultant Name Role Phone ABDIRAHMAN LAKE Primary [...] BASIC FAMIL Y Jun 24, 2009 [id number] [phone] ABHILASH GARAY PATIENT ANTHEM BCBS [place] FEP PREFERRED PROVIDER ORGANIZAT ION (PPO) FEP BASIC FAM Jun 24, 2009 112 [id number] [phone] ABHILASH GARAY PATIENT ANTHEM BCBS [place] FEP PREFERRED PROVIDER ORGANIZAT ION (PPO) FEP BASIC FAM Jun 24, 2009 112 [id number] [phone] ABHILASH GARAY PATIENT ANTHEM [place] F[place] PREFERRED PROVIDER ORGANIZAT ION (PPO) FEP BASIC FAM Jun 24, 2009 112 [id number] [phone] ABHILASH GARAY PATIENT [place] FEP PREFERRED PROVIDER ORGANIZAT ION (PPO) FEP BASIC FAM Jun 24, 2009 112 [id number] [phone] ABHILASH GARAY PATIENT BCBS [place] FEP PREFERRED PROVIDER ORGANIZAT ION (PPO) BASIC FAMIL Y Jun 24, 2009 [id number] ABHILASH GARAY PATIENT [place] PREFERRED PROVIDER ORGANIZAT ION (PPO) BASIC FAMIL Y Jun 24, 2009 [id number] [phone] ABHILASH GARAY PATIENT [place] FEP PREFERRED PROVIDER ORGANIZAT ION (PPO) BASIC FAMIL Y Jun 24, 2009 [id number] ABHILASH GARAY PATIENT [place] F[place] DENTAL DENTAL INSURANCE BASIC Jul 12, 2009 DENTAL [id number] ABHILASH GARAY PATIENT [place] FEP PREFERRED PROVIDER ORGANIZAT ION (PPO) BASIC FAMIL Y Jun 24, 2009 [id number] ABHILASH GARAY PATIENT [place] FEP ([id number]) PRESCRIPT ION FEPRX Jun 24, 2009 [id number] [phone] ABHILASH GARAY PATIENT [place] FEP BCBS PRESCRIPT ION CAREM ARK FEPRX PLAN Nov 21, 2021 [id number] ABHILASH GARAY PATIENT [employer] FEPRX PLAN PRESCRIPT ION CAREM ARK FEPRX Nov 21, 2021 [id number] ABHILASH GARAY PATIENT [place]-F EP BCBS PRESCRIPT ION FEP CAREM ARK Nov 21, 2021 [id number] ABHILASH GARAY PATIENT [place]-F EP BCBS PRESCRIPT ION FEP Jun 23, 2010 [id number] RUBI GARAYNETH PATIENT MEDICARE (WN) MEDICARE () PART A Feb 22, 2020 PART A [id number] ABHILASH GARAY PATIENT MEDICARE (WN) MEDICARE () PART A Feb 22, 2020 PART A [id number] [phone] ABHILASH GARAY PATIENT MEDICARE (WNR) MEDICARE (M) PART A Feb 22, 2020 PART A [id number] [id number] ABHILASH GARAY PATIENT MEDICARE (WNR) MEDICARE (M) PART A Feb 22, 2020 PART A [id number] ABHILASH GARAY PATIENT MEDICARE (WNR) MEDICARE (M) PART A Feb 22, 2020 PART A [id number] ABHILASH GARAY PATIENT Selected Encounter This section includes the information on record at [place] for the Encounter. Date/Time Encounter Type Encounter Description Reason Provider Source Jun 24, 2024 01:00 PM EXERCISE CLASS HEALTH/WELLBEING SRVS ICD-10-CM Y93.42 Activity, PAT Yoder IHFran Encounter Template Text not used by [place] Assessments - Encounter Diagnoses This section includes the primary and secondary diagnoses documented for the Encounter. Date/Time Primary/Secondary Diagnosis Diagnosis Name Provider Source Jun 25, 2024 08:58 AM PRIMARY Activity, PEDRO Yoder [facility] [place] [facility] Plan of Treatment: Future Appointments (+ [...] Appointment Type Appointme nt Facility Name Jun 28, 2024 11:00 AM AMBULATORY - NONE [place] [facility] [place] [facility] Jul 07, 2024 01:00 PM AMBULATORY - MEDICINE [place] Jul 23, 2024 01:30 PM AMBULATORY - MEDICINE [place] C [facility] [place] [facility] Aug 04, 2024 10:00 AM AMBULATORY - MEDICINE [place] C [facility] [place] [facility] Aug 25, 2024 10:30 AM AMBULATORY - MEDICINE [place] C [facility] [place] [facility] Sep 21, 2024 01:30 PM AMBULATORY - MEDICINE [place] Oct 05, 2024 11:00 AM AMBULATORY - MEDICINE [facility] Active, Pending, and Scheduled Orders This section includes a listing of several types of active, pending, and scheduled orders, including clinic medications orders, diagnostic test orders, procedure orders and consult orders; where the start date of the order is 45 days before the date of the Encounter or 45 days after the date of theEncounter. The data comes from all [place] treatment facilities. Test Date/Time Test Type Test Details Facility Name Jun 01, 2024 11:54 AM Consult Order [facility] MASSAGE THERAPY Cons Thread [facility]pper[facility] Social History: Smoking Status (Most current) and [...] F darvin Aug 09, 2021 09:20 AM [place]-TOBACCO NEVER USED [facility] Encounter Notes: All associated encounter notes This section contains the clinical notes associated to the Encounter. Date/Time Encounter Note(s) Provider Source Jun 24, 2024 01:00 PM RECREATIONAL THERA PY NOTE: LOCAL TITLE: YOGA WELLBEING STANDARD TITLE: RECREATIONAL THERAPY NOTE DATE OF NOTE: JUN 24, 2024@13:00 ENTRY DATE: JUN 25, 2024@08:58:10 AUTHOR: MARY KATE MOORE COSIGNER: URGENCY: STATUS: [...] triangle pose, wide leg forward bend variations, Gardiner 2, extended side angle pose, Gardiner 1, plank, cobra, locust, downward facing dog, wisdom pose, contralateral limb raises, head to knee pose, bridge, reclined twist, knees to chest; Systematic Relaxation; and Gratitude. Modifications were geared toward the [place]'s individual needs and preferences. Anitha was one of six participants in Group Yoga, fully engaging in all the postures offered and modifying according to individual needs. was provided options to use a chair, yoga blocks, and a yoga belt for support as needed. Breath was used as a tool to enhance practice. will return to class as personal scheduling allows. /yunior/ MITA [id number] Spray Booth Operator Signed: 06/25/2024 09:03 MARY KATE MOORE [facility]
--- OUTSIDE RECORDS SUMMARY | 2024-06-29 19:10 | XMS_ITS | Encounter Summary ---
Author Name [place] Address [address] [place] [address] Care Team Providers Care Sandwich Wrapper Name Role Phone ABDIRAHMAN LAKE Primary Care [...] BASIC FAMIL Y Jun 24, 2009 112 [id number] [phone] ABHILASH GARAY PATIENT ANTHEM BCBS [place] F[place] PREFERRED PROVIDER ORGANIZAT ION (PPO) FEP BASIC FAM Jun 24, 2009 112 [id number] [phone] ABHILASH GARAY PATIENT ANTHEM [place] F[place] PREFERRED PROVIDER ORGANIZAT ION (PPO) FEP BASIC FAM Jun 24, 2009 112 [id number] [phone] ABHILASH GARAY PATIENT [place] PREFERRED PROVIDER ORGANIZAT ION (PPO) FEP BASIC FAM Jun 24, 2009 112 [id number] [phone] ABHILASH GARAY PATIENT [place] PREFERRED PROVIDER ORGANIZAT ION (PPO) FEP BASIC FAM Jun 24, 2009 112 [id number] [phone] ABHILASH GARAY PATIENT [place]BS [place] F[place] PREFERRED PROVIDER ORGANIZAT ION (PPO) BASIC FAMIL Y Jun 24, 2009 [id number] ABHILASH GARAY PATIENT [place] PREFERRED PROVIDER ORGANIZAT ION (PPO) BASIC FAMIL Y Jun 24, 2009 112 [id number] [phone] ABHILASH GARAY PATIENT [place] FEP PREFERRED PROVIDER ORGANIZAT ION (PPO) BASIC FAMIL Y Jun 24, 2009 [id number] ABHILASH GARAY PATIENT [place] DENTAL DENTAL INSURANCE BASIC Jul 12, 2009 DENTAL [id number] ABHILASH GARAY PATIENT [place] PREFERRED PROVIDER ORGANIZAT ION (PPO) BASIC FAMIL Y Jun 24, 2009 112 [id number] [phone] ABHILASH GARAY PATIENT [employer] FEP ([id number]) PRESCRIPT ION FEPRX Jun 24, 2009 [id number] [phone] ABHILASH GARAY PATIENT [employer] FEP BCBS PRESCRIPT ION CAREM ARK FEPRX PLAN Nov 21, 2021 [id number] ABHILASH GARAY PATIENT [employer] FEPRX PLAN PRESCRIPT ION CAREM ARK FEPRX Nov 21, 2021 [id number] ABHILASH GARAY PATIENT [employer]-F EP BCBS PRESCRIPT ION FEP CAREM ARK Nov 21, 2021 [id number] ABHILASH GARAY PATIENT [place]-F EP BCBS PRESCRIPT ION FEP Jun 23, 2010 [id number] ABHILASH GARAY PATIENT MEDICARE (WN) MEDICARE () PART A Feb 22, 2020 PART A [id number] [id number] [phone] ABHILASH GARAY PATIENT MEDICARE ([facility]) MEDICARE () PART A Feb 22, 2020 PART A [id number] NV71 [phone] ABHILASH GARAY PATIENT MEDICARE (WNR) MEDICARE (M) PART A Feb 22, 2020 PART A [id number] ABHILASH GARAY PATIENT MEDICARE (WNR) MEDICARE (M) PART A Feb 22, 2020 PART A [id number] ABHILASH GARAY PATIENT MEDICARE (WNR) MEDICARE (M) PART A Feb 22, 2020 PART A [id number] ABHILASH GARAY PATIENT Selected Encounter This section includes the information on record at [place] for the Encounter. Date/Time Encounter Type Encounter Description Reason Pro vider Source May 24, 2024 12:00 AM Outpatient Encounter COMMUNITY CARE CONSULT IHE Encounter Template Text not used by [place] Plan of Treatment: Future Appointments (+ 6 months) and Future Tests (+/- 45 days) The Plan of Treatment section includes future care activities for the patient from all [place] [facility] [place]. This section includes future appointments and future [...] 28, 2024 07:30 AM AMBULATORY - MEDICINE [facility] [place] [facility] Jun 03, 2024 01:00 PM AMBULATORY - MEDICINE [facility] [place] [facility] Jun 08, 2024 03:00 PM AMBULATORY - REHAB [facility] Jun 11, 2024 08:00 AM AMBULATORY - MEDICINE [facility] Jun 11, 2024 02:00 PM AMBULATORY - REHAB [facility] Jun 14, 2024 10:30 AM AMBULATORY - MEDICINE [place] C [facility] [place] [facility] Jun 15, 2024 10:00 AM AMBULATORY - REHAB [facility] Jun 22, 2024 11:30 AM AMBULATORY - MEDICINE [place] C [facility] [place] [facility] Jun 22, 2024 03:00 [facility] Jun 24, [facility]24 01:00 PM [facility] - MEDICINE [facility] [place] [facility] Jun 28, 2024 11:00 AM AMBULATORY - NONE [facility] [place] [facility] Jul 07, 2024 01:00 PM AMBULATORY - MEDICINE [place] Jul 23, 2024 01:30 PM AMBULATORY - MEDICINE [facility] [place] [facility] Aug 04, 2024 10:00 AM AMBULATORY - MEDICINE [facility] [place] [facility] Aug 25, 2024 10:30 AM AMBULATORY - MEDICINE [place] [facility] [place] [facility] Sep 21, 2024 01:30 PM AMBULATORY [...] of theEncounter. The data comes from all [place] treatment facilities. Test Date/Time Test Type Test Details Facility Name Apr 15, 2024 03:06 PM Consult Order COMMUNITY CARE-NEUROLOGY Cons [employer]izer[employer] [facility] [place] [facility] [place] [facility] Jun 01, 2024 11:54 AM Consult Order [facility]ITY [facility] MASSAGE THERAPY Cons [employer] Stabilizer's Choice [place] Social History: Smoking Status (Most current) and [...] 08, 2023 09:12 AM VA-TOBACCO NEVER US[facility] Tobacco Use History This section includes a history of the smoking, or tobacco-related health factors, that were collected on or before the date of the Encounter. The data comes from the [place] facility where the Encounter took place. Date/Time Smoking Status/Tobacco Use Comment F acility Aug 09, 2021 09:20 AM [facility] Encounter Notes: All associated encounter notes This section contains the clinical notes associated to the Encounter. Date/Time Encounter Note(s) Provider Source May 24, 2024 12:00 AM NONVA CONSULT: LOCAL TITLE: COMMUNITY CARE-CONSULT RESULT NOTE STANDARD TITLE: NONVA CONSULT DATE OF NOTE: MAY 24, 2024 ENTRY DATE: JUN 25, 2024@09:50:35 AUTHOR: ADILSON ELY COSIGNER: URGENCY: STATUS: COMPLETED VistA Imaging - Scanned Document SCANNED DOCUMENT SIGNATURE NOT REQUIRED Electronically Filed: 06/25/2024 by: ADILSON PHELPS [facility]
--- OUTSIDE RECORDS SUMMARY | 2024-06-29 19:10 | XMS_ITS | Encounter Summary ---
Author Name [facility] [place] Organization [place] Address [address] [place] [address] Care Team Providers Care Risk Management Intern Name Role Phone ABDIRAHMAN LAKE Primary [...] BASIC FAMIL Y Jun 24, 2009 [id number] [phone] ABHILASH GARAY PATIENT ANTHEM BCBS [place] FEP PREFERRED PROVIDER ORGANIZAT ION (PPO) FEP BASIC FAM Jun 24, 2009 112 [id number] [phone] ABHILASH GARAY PATIENT ANTHEM [place]BS [place] FEP PREFERRED PROVIDER ORGANIZAT ION (PPO) FEP BASIC FAM Jun 24, 2009 112 [id number] [phone] ABHILASH GARAY PATIENT [place] PREFERRED PROVIDER ORGANIZAT ION (PPO) FEP BASIC FAM Jun 24, 2009 112 [id number] [phone] ABHILASH GARAY PATIENT [place] PREFERRED PROVIDER ORGANIZAT ION (PPO) FEP BASIC FAM Jun 24, 2009 112 [id number] [phone] ABHILASH GARAY PATIENT [place] F[place] PREFERRED PROVIDER ORGANIZAT ION (PPO) BASIC FAMIL Y Jun 24, 2009 [id number] ABHILASH GARAY PATIENT [place] FEP PREFERRED PROVIDER ORGANIZAT ION (PPO) BASIC FAMIL Y Jun 24, 2009 [id number] ABHILASH GARAY PATIENT [place] F[place] PREFERRED PROVIDER ORGANIZAT ION (PPO) BASIC FAMIL Y Jun 24, 2009 112 [id number] [phone] ABHILASH GARAY PATIENT [place] FEP DENTAL DENTAL INSURANCE BASIC Jul 12, 2009 DENTAL [id number] ABHILASH GARAY PATIENT [place] F[place] PREFERRED PROVIDER ORGANIZAT ION (PPO) BASIC FAMIL Y Jun 24, 2009 [id number] ABHILASH GARAY PATIENT [employer] FEP ([id number]) PRESCRIPT ION FEPRX Jun 24, 2009 [id number] [phone] ABHILASH GARAY PATIENT [place] FEP BCBS PRESCRIPT ION CAREM ARK FEPRX PLAN Nov 21, 2021 [id number] ABHILASH GARAY PATIENT [employer] FEPRX PLAN PRESCRIPT ION CAREM ARK FEPRX Nov 21, 2021 [id number] ABHILASH GARAY PATIENT [employer]-F EP BCBS PRESCRIPT ION FEP CAREM ARK Nov 21, 2021 [id number] ABHILASH GARAY PATIENT [employer]-F EP BCBS PRESCRIPT ION FEP Jun 23, 2010 [id number] ABHILASH GARAY PATIENT MEDICARE (WN) MEDICARE () PART A Feb 22, 2020 PART A [id number] ABHILASH GARAY PATIENT MEDICARE ([facility]) MEDICARE () PART A Feb 22, 2020 PART A [id number] ABHILASH GARAY PATIENT MEDICARE (WNR) MEDICARE (M) PART A Feb 22, 2020 PART A [id number] NV71 [phone] ABHILASH GARAY PATIENT MEDICARE (WNR) MEDICARE (M) PART A Feb 22, 2020 PART A [id number] ABHILASH GARAY PATIENT MEDICARE (WNR) MEDICARE (M) PART A Feb 22, 2020 PART A [id number] ABHILASH GARAY PATIENT Selected Encounter This section includes the information on record at [place] for the Encounter. Date/Time Encounter Type Encounter Description Reason Pro vider Source May 03, 2024 12:00 AM Outpatient Encounter COMMUNITY CARE CONSULT IHE Encounter Template Text not used by [place] Plan of Treatment: Future Appointments (+ 6 months) and Future Tests (+/- 45 days) The Plan of Treatment section includes future care activities for the patient [facility] all [place] [facility]. This section includes future [...] 17, 2024 01:00 PM AMBULATORY - REHAB [facility] May 28, 2024 07:30 AM AMBULATORY - MEDICINE [place] C [facility] [place] [facility] Jun 03, 2024 01:00 PM AMBULATORY - MEDICINE [place] C [facility] [facility] Jun 08, 2024 03:00 PM AMBULATORY - REHAB [facility]ICIN [facility] Jun 11, 2024 08:00 AM [facility] Jun 11, 2024 02:00 PM AMBULATORY - REHAB MEDICIN [facility] Jun 14, 2024 10:30 AM AMBULATORY - MEDICINE [place] C [facility] [place] [facility] Jun 15, 2024 10:00 AM AMBULATORY - REHAB MEDICIN [facility] Jun 22, 2024 11:30 AM AMBULATORY - [facility]ICINE [facility] [place] [facility] Jun 22, 2024 03:00 PM AMBULATORY - REHAB MEDICIN [facility] [place] Jun 24, 2024 01:00 PM AMBULATORY - MEDICINE [place] C [facility] [facility] Jun 28, 2024 11:00 AM AMBULATORY - NONE [place] [facility] [place] [facility] Jul 07, 2024 01:00 PM AMBULATORY - MEDICINE [place] Jul 23, 2024 01:30 PM AMBULATORY - MEDICINE [facility] [place] [facility] Aug 04, 2024 10:00 AM AMBULATORY - MEDICINE [facility] [place] [facility] Aug 25, 2024 10:30 AM AMBULATORY - MEDICINE [facility] [facility] Sep 21, 2024 01:30 PM AMBULATORY - [facility]ICINE [place] Oct 05, 2024 11:00 AM [facility] Active, Pending, and Scheduled Orders This section includes a listing of several types of active, pending, and scheduled orders, including clinic medications orders, diagnostic test orders, procedure orders and consult orders; where the start date of the order is 45 days before the date of the Encounter or 45 days after the date of theEncounter. The data comes from all [place] treatment facilities. Test Date/Time Test Type Test Details Facility Name Apr 08, 2024 12:00 AM Laboratory - Chemistry Order URINALYSIS URINE [facility] [place] Apr 15, 2024 03:06 PM Consult Order [facility]-NEUROLOGY Cons Lithographers [employer]inter[employer] Choice [place] [facility] [place] [facility] Jun 01, 2024 11:54 AM Consult Order [facility] MASSAGE THERAPY Cons Lithographers Printer[employer] Choice [place] Lab Results: +/- 30 days of the encounter This section includes the Chemistry and Hematology Lab Results on record with [place] for the patient. Radiology Reports and Pathology Reports are provided separately, in subsequent sections. Lab Results This section contains the Chemistry/Hematology Results that were resulted 30 days before or 30 daysafter the date of the Encounter. Date/Time Source Result Type Result - Unit Interpretation Reference Range Comment Apr 15, 2024 11:16 AM [facility] CPK Specimen Type: SERUM No comment entered. Ordering Provider: JOHN PAUL DENNISON Report Released Date/Time: Apr 15, 2024 10:55 AM [facility] [address] [id number] Performing Lab: [facility] [address] [facility] [id number] CPK 67 U/L 30-200 Social History: Smoking [...] 08, 2023 09:12 AM VA-TOBACCO NEVER USED [facility] Tobacco Use History This section includes a history of the smoking, or tobacco-related health factors, that were collected on or before the date of the Encounter. The data comes from the [place] facility where the Encounter took place. Date/Time Smoking Status/Tobacco Use Comment F acility Aug 09, 2021 09:20 AM VA-TOBACCO NEVER USED [facility] Encounter Notes: All associated encounter notes This section contains the clinical notes associated to the Encounter. Date/Time Encounter Note(s) Provider Source May 03, 2024 12:00 AM NONVA CONSULT: LOCAL TITLE: COMMUNITY CARE-CONSULT RESULT NOTE STANDARD TITLE: NONVA CONSULT DATE OF NOTE: MAY 03, 2024 ENTRY DATE: JUN 17, 2024@12:22:03 AUTHOR: IFEANYI PARKER EXP COSIGNER: URGENCY: STATUS: COMPLETED VistA Imaging - Scanned Document SCANNED DOCUMENT SIGNATURE NOT REQUIRED Electronically Filed: 06/17/2024 by: IFEANYI BOYLE [facility]
--- OUTSIDE RECORDS SUMMARY | 2024-06-29 19:10 | XMS_ITS | Encounter Summary ---
Author Name [facility] [place] [facility] [place] Address [address] [place] [address] Care Team Providers Care Radio Survey Worker Name Role Phone ABDIRAHMAN LAKE Primary [...] BASIC FAMIL Y Jun 24, 2009 112 [id number] [phone] ABHILASH GARAY PATIENT ANTHEM BCBS [place] FEP PREFERRED PROVIDER ORGANIZAT ION (PPO) FEP BASIC FAM Jun 24, 2009 112 [id number] [phone] ABHILASH GARAY PATIENT ANTHEM BCBS [place] F[place] PREFERRED PROVIDER ORGANIZAT ION (PPO) FEP BASIC FAM Jun 24, 2009 112 [id number] [phone] ABHILASH GARAY PATIENT ANTHEM [place] PREFERRED PROVIDER ORGANIZAT ION (PPO) FEP BASIC FAM Jun 24, 2009 112 [id number] [phone] ABHILASH GARAY PATIENT [place] F[place] PREFERRED PROVIDER ORGANIZAT ION (PPO) FEP BASIC FAM Jun 24, 2009 112 [id number] [phone] ABHILASH GAARY PATIENT BCBS [place] FEP PREFERRED PROVIDER ORGANIZAT ION (PPO) BASIC FAMIL Y Jun 24, 2009 112 [id number] [phone] ABHILASH GARAY PATIENT [place] PREFERRED PROVIDER ORGANIZAT ION (PPO) BASIC FAMIL Y Jun 24, 2009 [id number] ABHILASH GARAY PATIENT [place] PREFERRED PROVIDER ORGANIZAT ION (PPO) BASIC FAMIL Y Jun 24, 2009 [id number] ABHILASH GARAY PATIENT [place] F[place] DENTAL DENTAL INSURANCE BASIC Jul 12, 2009 DENTAL [id number] ABHILASH GARAY PATIENT [place] F[place] PREFERRED PROVIDER ORGANIZAT ION (PPO) BASIC FAMIL Y Jun 24, 2009 [id number] ABHILASH GARAY PATIENT [place] FEP ([id number]) PRESCRIPT ION FEPRX Jun 24, 2009 [id number] [phone] ABHILASH GARAY PATIENT [place] FEP BCBS PRESCRIPT ION CAREM ARK FEPRX PLAN Nov 21, 2021 [id number] ABHILASH GARAY PATIENT [place] FEPRX PLAN PRESCRIPT ION CAREM ARK FEPRX Nov 21, 2021 [id number] ABHILASH GARAY PATIENT [place]-F EP BCBS PRESCRIPT ION FEP CAREM ARK Nov 21, 2021 [id number] ABHILASH GARAY PATIENT [place]-F EP BCBS PRESCRIPT ION FEP Jun 23, 2010 [id number] RUBI GARAYNETH PATIENT MEDICARE (WNR) MEDICARE (M) PART A Feb 22, 2020 PART A [id number] ABHILASH GARAY PATIENT MEDICARE (WNR) MEDICARE (M) PART A Feb 22, 2020 PART A [id number] ABHILASH GARAY PATIENT MEDICARE (WNR) MEDICARE (M) PART A Feb 22, 2020 PART A [id number] ABHILASH GARAY PATIENT MEDICARE (WNR) MEDICARE (M) PART A Feb 22, 2020 PART A [id number] ABHILASH GARAY PATIENT MEDICARE (WNR) MEDICARE (M) PART A Feb 22, 2020 PART A [id number] [phone] [id number] ABHILASH GARAY PATIENT Selected Encounter This section includes the information on record at [place] for the Encounter. Date/Time Encounter Type Encounter Description Reason Provider Source Jun 22, 2024 03:00 PM THERAPEUTIC EXERCISES PHYSICAL THERAPY ICD-10-CM G90.09 Other idiopathic peripheral autonomic neuropathy JESSICA MEDRANO Fran Encounter Template Text not used by [place] Assessments - Encounter Diagnoses This section includes the primary and secondary diagnoses documented for the Encounter. Date/Time Primary/Secondary Diagnosis Diagnosis Name Provider Source Jun 22, 2024 03:17 PM PRIMARY Other idiopathic peripheral autonomic neuropathy [...] 24, 2024 01:00 PM AMBULATORY - [place]ICINE [place] [place] [facility] Jun 28, 2024 11:00 AM AMBULATORY - NONE [place] [facility] [place] [facility] Jul 07, 2024 01:00 PM [facility] Jul 23, 2024 01:30 PM AMBULATORY - MEDICINE [place] [facility] Aug 04, 2024 10:00 AM AMBULATORY - MEDICINE [place] [facility] Aug 25, 2024 10:30 AM AMBULATORY [place]ICINE [place] [facility] Sep 21, 2024 01:30 PM AMBULATORY - [place]IC[place] Oct 05, 2024 11:00 AM [facility] Active, Pending, and Scheduled Orders [...] Jun 01, 2024 11:54 AM Consult Order [facility] MASSAGE THERAPY Cons Aws Architect's Choice [facility] Social History: Smoking Status (Most current) and [...] Odalis ity Apr 06, 2024 10:30 AM [place]-TOBACCO NEVER USED [facility] Tobacco Use History This section includes a history of the smoking, or tobacco-related health factors, that were collected on or before the date of the Encounter. The data comes from the [place] facility where the Encounter took place. Date/Time Smoking Status/Tobacco Use Comment F acility Aug 18, 2020 10:00 AM [place]-TOBACCO NEVER USED [facility] Dec 15, 2018 12:14 PM [place]-TOBACCO NEVER USED [facility] Jun 11, 2017 04:15 PM LIFETIME NON-TOBACCO USER [facility] Jan 01, 2016 11:12 AM LIFETIME NON-TOBACCO USER [facility] Jan 16, 2005 08:54 AM LIFETIME NON-SMOKER [facility] Nov 29, 2003 08:05 AM LIFETIME NON-SMOKER [facility] Jan 07, 2001 08:33 AM LIFETIME NON-SMOKER [facility] Encounter Notes: All associated encounter notes This section contains the clinical notes associated to the Encounter. Date/Time Encounter Note(s) Provider Source Jun 22, 2024 07:51 AM PHYSICAL THERAPY D ISCHARGE NOTE: LOCAL TITLE: PHYSICAL THERAPY DISCHARGE NOTE STANDARD TITLE: PHYSICAL THERAPY DISCHARGE NOTE DATE OF NOTE: JUN 22, 2024@07:51 ENTRY DATE: JUN 22, 2024@07:51:40 AUTHOR: DANNEN,HERO EXP COSIGNER: URGENCY: STATUS: COMPLETED Initial Evaluation date:05/17/24 Re-evaluation date: 06/16/24 Treatment #: 4 Treatment time: 30 Diagnosis: Other Idiopathic Peripheral Autonomic Neuropathy(ICD-10-CM G90.09) Provider: ABDIRAHMAN LAKE Pt identified by: full name and SUBJECTIVE: patient states they are doing good, feels like today could be their last day for PT. Aggravating: Prolonged walking and standing Alleviating: None Current exercise routine: Chair yoga Work: Retired, [employer] for 28 years Patient Goal: Improve balance and walking Number [...] touch intact for all dermatomes Protective sensation: R:7/9 L:8/9 Proprioception: Big Toe 5/5 Bilaterally ROM: STRENGTH: Hip flexion L: 5/5 R: 5/5 Knee extension L: 5/5 R: 5/5 Knee flexion L: 5/5 R: 5/5 Ankle DF L: 5/5 R: 5/5 Ankle PF: L: 5/5 R: 5/5 Ankle INV L: 5/5 R: 5/5 Ankle EV L: 5/5 R: 5/5 Big toe ext: L: 5/5 R: 5/5 Toe flexion: L: 5/5 R: 5/5 Hip ABD L: 5/5 R: 5/5 Hip ADD: L: 5/5 R: 5/5 Hip Extension L: /5 R: /5 Glute Max: L: /5 R: /5 SPECIAL TESTS: 30 second sit to stand: 8 TUs Colon: 1: Sit to stand: 4 2: Standing unsupported: 4 3: Sitting with feet on floor:4 4: Stand to sit: 4 5: Transfers: 4 6: Standing eyes closed:3 7: Standing feet together:4 8: Forward reach: 4 9: cupola melter from floor:4 10: Torso rotation:4 11: Turn 360de 12: Place foot on stool:3 13: Tandem: 2 14: Standing on one le Total score: 47/56 INTERVENTIONS: Therapeutic Exercise: Mins: 8 Nustep 8mins Manual therapy: Mins: Neuro re-ed: Mins: Other: Mins: Modalities: Mins: [] contraindication screen completed prior to modality [] skin intact pre/post modality Access Code: [email or web address] URL: [email or web address] Date: 06/22/2024 Prepared by: Hero Medrano Exercises - Heel Raises with Counter Support - [...] - 2-3 sets - 10-20 reps - Sit to Stand with Arms Crossed - 1 x daily - 7 x weekly - 2-3 sets - 6-12 reps PATIENT EDUCATION: Mins: 10 Patient education was provided for all aspects of care during this clinical encounter. Provided updated written HEP to patient reviewing proper form sets reps and frequency and safety precautions with patient verbalizing and demonstrating good understanding during visit. Discussed benefits of light cardiovascular activity for 20-30mins most days of the week walking or riding a recumbent exercise bike/nustep and the benefits this can have on their balance/neuropathy. ASSESSMENT: Patient seen for reassessment of baseline measures. Patient with good improvements in TUG score and BBS score since intial eval; scores on these tests now indicate low risk for falling. Patient also demonstrates good impovement in LE MMT scores and improvement in 30s STS score indicating improved LE strength and power. Discussed POC with patient who verbalies agreement with d/c to HEP today. Provided updated written HEP reviewing with patient. GOALS: within 4-6 weeks patient will: 1) Increase right and left LE strength by 1/2 grade MMT to improve functional mobility. - MET 06/22/24 2) Pt will improve 30 STS score to within norms for age to maximize functional strength. - MET 06/22/24 3) Pt will be independent with a home exercise program to maximize functional independence within the community and reduce risk of falls. - MET 06/22/24 4) Improve COLON balance score by 4 points to meet the MDC to show significant improvement in their functional balance 5) decrease their Tug time to 12seconds to decrease their risk of falls in the community- MET 06/22/24 PLAN: D/C to HEP [X]Low impact cardio: [X]Nustep []Recumbent bike []Recumbent elliptical []TM []Manual: []STM/DTM []METs/SCS []IASTM []Joint mobilizations [X]Therex: []Progressive UQ []Progressive Core [X]Progressive LQ []UQ flex [] Lumbar flex [X]LQ flex []Foam rolling [X]Proprioception [X]Neuro Re-education: [X]Static [X]Dynamic [X]Dual-Task [X]Education: [X]Posture []Ergonomics [X]Bodymechanics [X]Self-care strategies []PNE []Modalities(PRN): []Heat/Ice []Estim/Tens []Mechanical traction []K-tape [] Biofreeze /es/ HERO MEDRANO PT, DPT PHYSICAL THERAPIST Signed: 06/22/2024 15:17 HERO MEDRANO [facility]
--- OUTSIDE RECORDS SUMMARY | 2024-06-29 19:11 | XMS_ITS ---
Author Name [facility] [place] [facility] [place] [facility] [place] Address [address] [place] [address] Care Team Providers Care Deep Submergence Vehicle Crewmember Name Role Phone ABDIRAHMAN LAKE Primary Care [...] BASIC FAMIL Y Jun 24, 2009 [id number] [phone] ABHILASH GARAY PATIENT ANTHEM BCBS [place] FEP PREFERRED PROVIDER ORGANIZAT ION (PPO) FEP BASIC FAM Jun 24, 2009 [id number] [phone] ABHILASH GARAY PATIENT ANTHEM BCBS [place] F[place] PREFERRED PROVIDER ORGANIZAT ION (PPO) FEP BASIC FAM Jun 24, 2009 112 [id number] [phone] ABHILASH GARAY PATIENT [place] PREFERRED PROVIDER ORGANIZAT ION (PPO) FEP BASIC FAM Jun 24, 2009 112 [id number] [phone] ABHILASH GARAY PATIENT [place] PREFERRED PROVIDER ORGANIZAT ION (PPO) FEP BASIC FAM Jun 24, 2009 [id number] [phone] ABHILASH GARAY PATIENT [place] F[place] PREFERRED PROVIDER ORGANIZAT ION (PPO) BASIC FAMIL Y Jun 24, 2009 [id number] ABHILASH GARAY PATIENT [place] PREFERRED PROVIDER ORGANIZAT ION (PPO) BASIC FAMIL Y Jun 24, 2009 [id number] ABHILASH GAARY PATIENT [place] PREFERRED PROVIDER ORGANIZAT ION (PPO) BASIC FAMIL Y Jun 24, 2009 [id number] [phone] ABHILASH GARAY PATIENT [place] F[place] DENTAL DENTAL INSURANCE BASIC Jul 12, 2009 DENTAL [id number] ABHILASH GARAY PATIENT [place] PREFERRED PROVIDER ORGANIZAT ION (PPO) BASIC FAMIL Y Jun 24, 2009 [id number] [phone] ABHILASH GARAY PATIENT [employer] FEP ([id number]) PRESCRIPT ION FEPRX Jun 24, 2009 [id number] [phone] ABHILASH GARAY PATIENT [place] FEP BCBS PRESCRIPT ION CAREM ARK FEPRX PLAN Nov 21, 2021 [id number] ABHILASH GARAY PATIENT [employer] FEPRX PLAN PRESCRIPT ION CAREM ARK FEPRX Nov 21, 2021 [id number] ABHILASH GARAY PATIENT [place]-F EP BCBS PRESCRIPT ION FEP CAREM ARK Nov 21, 2021 [id number] ABHILASH GARAY PATIENT [place]-F EP BCBS PRESCRIPT ION FEP Jun 23, 2010 [id number] ABHILASH GARAY PATIENT MEDICARE (WN) MEDICARE () PART A Feb 22, 2020 PART A [id number] ABHILASH GARAY PATIENT MEDICARE ([facility]) MEDICARE () PART A Feb 22, 2020 PART A [id number] ABHILASH GARAY PATIENT MEDICARE (WNR) MEDICARE (M) PART A Feb 22, 2020 PART A [id number] [id number] ABHILASH GARAY PATIENT MEDICARE (WNR) MEDICARE (M) PART A Feb 22, 2020 PART A [id number] NV71 [phone] ABHILASH GARAY PATIENT MEDICARE (WNR) MEDICARE (M) PART A Feb 22, 2020 PART A [id number] ABHILASH GARAY PATIENT Selected Encounter This section includes the information on record at [place] for the Encounter. Date/Time Encounter Type Encounter Description Reason Pro vider Source May 26, 2024 12:00 AM Outpatient Encounter COMMUNITY CARE CONSULT IHE Encounter Template Text not used by [place] Plan of Treatment: Future Appointments (+ 6 months) and Future Tests (+/- 45 days) The Plan of Treatment section includes future care activities for the patient from all [place] [facility]. This section includes future appointments and future [...] 28, 2024 07:30 AM AMBULATORY - MEDICINE [facility] [place] [facility] Jun 03, 2024 01:00 PM AMBULATORY - MEDICINE [facility] [place] [facility] Jun 08, 2024 03:00 PM AMBULATORY - REHAB [facility]IC[facility] Jun 11, 2024 08:00 AM AMBULATORY - MEDICINE [facility] Jun 11, 2024 02:00 PM AMBULATORY - REHAB MEDICIN [facility] Jun 14, 2024 10:30 AM AMBULATORY - MEDICINE [place] [facility] Jun 15, 2024 10:00 AM AMBULATORY - REHAB MEDICIN [facility] Jun 22, 2024 11:30 AM AMBULATORY - MEDICINE [place] [facility] Jun 22, 2024 03:00 [facility] 24, [facility]24 01:00 PM [facility] [place] [facility] [place] [place] [facility] Jun 28, 2024 11:00 AM AMBULATORY - NONE [facility] [place] [facility] Jul 07, 2024 01:00 PM AMBULATORY - MEDICINE [place] Jul 23, 2024 01:30 PM AMBULATORY - MEDICINE [place] [facility] [place] [facility] Aug 04, 2024 10:00 AM AMBULATORY - MEDICINE [place] [facility] [place] [facility] Aug 25, 2024 10:30 AM AMBULATORY - MEDICINE [place] [facility] [place] [facility] Sep 21, 2024 01:30 PM [...] of theEncounter. The data comes from all [place] treatment facilities. Test Date/Time Test Type Test Details Facility Name Apr 15, 2024 03:06 PM Consult Order COMMUNITY CARE-NEUROLOGY Cons Research Physician's Choice [place] [facility] Jun 01, 2024 11:54 AM Consult [facility] Cons Research Physician's Choice [employer] Social History: Smoking Status (Most current) and [...] 08, 2023 09:12 AM [place] [facility] Tobacco Use History This section includes a history of the smoking, or tobacco-related health factors, that were collected on or before the date of the Encounter. The data comes from the [place] facility where the Encounter took place. Date/Time Smoking Status/Tobacco Use Comment F acility Aug 09, 2021 09:20 AM [place] Encounter Notes: All associated encounter notes This section contains the clinical notes associated to the Encounter. Date/Time Encounter Note(s) Provider Source May 26, 2024 12:00 AM NONVA CONSULT: LOCAL TITLE: COMMUNITY CARE-CONSULT RESULT NOTE STANDARD TITLE: NONVA CONSULT DATE OF NOTE: MAY 26, 2024 ENTRY DATE: JUN 29, 2024@14:46:25 AUTHOR: ADILSON ELY COSIGNER: URGENCY: STATUS: COMPLETED [facility] - Scanned Document SCANNED DOCUMENT SIGNATURE NOT REQUIRED Electronically Filed: 06/29/2024 by: ADILSON PHELPS [facility]
--- OUTSIDE RECORDS SUMMARY | 2024-06-29 19:11 | XMS_ITS | Data Portability ---
Author Organization [place] - [facility], [facility] Address [address] [place] [address] Care Team Providers Care Car Mechanic Helper Name Role Phone DEPARTMENT [facility] Primary Care Provi sia Assessment No assessment recorded. Plan of Treatment Reminders Order Date Submit Date Provider Last Modified By Organization Details Last Modified Time Details Appointments None record ed. Lab None record ed. Referral None record ed. Procedures None record ed. Surgeries None record ed. Imaging None record ed. Medication Orders None record ed. Patient TargetsNo targets recorded. Patient Instructions Encounter Date Encounter Id Patient Instructions Last Modified By Organization Details Last Modified Time 03/15/2024 [id number] orthopedic surgery* - Reason for Order: Massage therapy [email or web address] Not available 03/15/2024 15:10:04 Reason for Referral None Reported. Medical Equipment None Reported. Allergies No known drug allergies Medications Name Sig Start Date Stop Date Status Note LastModified by Organization Details LastModified Time ketoconazol e 2 % shampoo 03/15 completed Not Available Not Available Not Available atorvastati n 10 mg tablet active Not Available Not Available Not Available metoprolol succinate ER 50 mg tablet,exte nded release 24 hr active Not Available Not Available Not Available Synthroid 150 mcg tablet 03/15 completed Not Available Not Available Not Available Synthroid 125 mcg tablet active Not Available Not Available Not Available clobetasol 0.05 % topical cream 03/15 completed Not Available Not Available Not Available allopurinol 100 mg tablet active Not Available Not Available Not Available Synthroid 175 mcg tablet 03/15 completed Not Available Not Available Not Available potassium citrate ER 10 mEq (1,080 mg) tablet,exte nded release active Not Available Not Available Not Available diltiazem CD 120 mg capsule,ext ended release 24 hr active Not Available Not Available Not Available ondansetron 4 mg disintegrat ing tablet DISSOLVE 1 TABLET ON THE TONGUE EVERY 6 HOURS NEEDED FOR NAUSEA OR VOMITING 03/15 completed Not Available Not Available Not Available oxycodone 5 mg tablet TAKE 1 TABLET BY MOUTH EVERY 6 HOURS NEEDED FOR PAIN 03/15 completed Not Available Not Available Not Available Synthroid 137 mcg tablet 03/15 completed Not Available Not Available Not Available Fish Oil active Not Available Not Avai lable Not Available rivaroxaban 20 mg tablet active Not Available Not Available Not Available Vitals Date Recorded Body height Body mass index (BMI) Body weight Provider Name and Address Organization Details Last Updated DateTime 03/15/2024 187.96 cm 32.1 kg/m2 850651.09 g Kimberly Iqbal [place] - [facility] 03/15/2024 12:19:08 Social History None recorded. Functional Status None recorded. Mental Status None recorded. Family History Nothing Reported. Medical History No medical history recorded. Past Encounters Encounter ID Performer Location Encounter Start Date Encounter Closed Date Diagnosis/Indication Diagnosis SNOMED-CT Code Diagnosis ICD10 Code Diagnosis Note [id number] JO[facility] Thompson [address] [place] [address] 03/15/2024 11:58:29 04/13/2024 12:39:18 Lumbar radiculopathy 851559998 M54.16 Health Concerns Section Related Observation LastModified by Organization Detai ls LastModified Time None Recorded Concern Status LastModified by Organization Details LastModified Time None Recorded Advance Directives Directive None Recorded Payers Encounter Date Sequence Insurance Name Policy Number Policy Blankenship Covered Member ID Blankenship Member ID Guarantor Name 03/15/2024 OPT - [place] [facility] ([facility] Mario Nice [id number] Mario Nice Notes Date Note Type Note Provider Name and Address Organization Details Recorded Time 03/15/2024 text/html I am seeing the patient today under the supervision of Dr. Saldaña who was available but who did not see the patient. HPI: Patient presents for evaluation of ongoing low back pain. [facility] Reports mostly low back pain but does have some leg complaints. He prefers conservative treatment to surgical. Patient reports bilateral radiating leg pain, paresthesias and weakness. Standing and walking worse than sitting. No clear etiology. Worsening over time. Rates pain moderate to severe. Denies bowel or bladder dysfunction. TREATMENTS: Bed rest, activity modification, home exercise core strengthening lumbar stabilization program over the past 3 months, and NSAIDs. Past family, medical, social history and review of systems has been reviewed, updated and signed by me and is located in the patient's chart. Examination: The patient is well appearing, alert and oriented x3 and in no acute distress. Gait is antalgic. Inspection of the spine reveals no step off, deformity or overlying skin changes. Range of motion of the lumbar spine is 60% of normal. Range of motion of the hip and knees full without discomfort. The spine is nontender over the paravertebral musculature. Nontender over the greater trochanters. Straight leg raise is positive on the affected side. Strength and sensation intact. Re?? e xes normal. No ankle clonus. MRI lumbar spine reviewed independent reveals multilevel degenerative findings with a right subarticular foraminal disc protrusion at L4-5 associated crowding of the associated nerve roots. Otherwise no high-grade stenosis identified. Impression/Plan: Low back pain/Lumbar DDD/Lumbar radiculitis. Discussed the nature of the problem with the patient. Discussed conservative treatment options. The patient is requesting a referral for massage therapy. He prefers to stay natural and declined a consultation with one of our spine surgeons next. He will follow-up if needed in the future. [facility] speech recognition city engineer software was used to create portions of this document. An attempt at proofreading has been made to minimize errors. Please call for corrections. Danette Martinez PA-C [address] [place], [place] [address]ann[address]le [address], [place], [address], [facility] - [facility] 03/15/2024 14:01:00
--- OUTSIDE RECORDS SUMMARY | 2024-06-29 19:11 | XMS_ITS | Patient Health Record ---
Author Organization [facility] Address [address] [place] [address] Care Team Providers Care Fire Supervisor Name Role Phone Po Bhakti AUGUSTIN Primary Care Provider Hector Daniel Jr Unavailable REASON FOR REFERRAL No Information MEDICATIONS Medication SIG (Take, Route, Frequency, Duration) Notes Start Date End Date Status Xarelto 20 MG Oral for 90 Acti ve rOPINIRole HCl 0.25 MG Oral for 90 Active Metoprolol Succinate ER 25 MG Oral for 90 Active Milk Thistle 175 MG as directed Orally Active Atorvastatin Calcium 10 MG 1 tablet Oral ly Once a day Active PreserVision AREDS 2 - as directed Orall y once a day Active Potassium Citrate ER 10 MEQ (1080 MG) 1 tablet with meals Orally Three times a day for 30 day(s) Active amLODIPine Besylate 2.5 MG 1 tablet Oral ly Once a day Active Niacin 500 MG 1 tablet Orally Once a day Active MiraLax (colon prep) 17 GM/SCOOP mixed with Gatorade or Crystal Light Orally begin at 5:00 p.m. the day before the procedure for 1 day 12/20/2021 Active Fish Oil 1000 MG 1 capsule Orally Onc e a day Active IMMUNIZATIONS Vaccine Route Administration Date Status Comme nts Influenza Unknown 06/23/2021 Administered Influenza Unknown 09/02/2019 Refused SOCIAL HISTORY Sex Assigned At : Social History Observation Description Sex Assigned At Unknown Alcohol Screen Question Answer Notes Did you have a drink containing alcohol in the p ast year? No Points 0 Interpretation Negative PROBLEMS Problem Type ICD Code Onset Dates Problem Status W/U Status Risk SNOMED Code Notes Problem Colon cancer screening (Z12.11) Active confirmed 428153231 Problem Encounter for other preprocedural examination (Z01.818) Active confirmed 49042525 Problem Long-term current use of high risk medication other than anticoagulant (Z79.899) Active confirmed 290046293 Problem Liver cyst (K76.89) Active confirmed 85 229688 Problem Left lower quadrant pain (R10.32) Active confirmed 362038947 Problem Personal history of colonic polyps (Z86.010) Active confirmed 239970670 Problem 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 (Z79.01) Active confirmed 189487283 PLAN OF TREATMENT Future Test Test Name Order Date COLONOSCOPY 09/04/2016 COLONOSCOPY 12/20/2021 Insurance Providers Payer Name Payer Address Payer Phone Subscriber Number Group Number Insured Name Patient Relationship to Insured Coverage Start Date Coverage End Date [facility] [address] [place], [place] [id number] ABHILASH GARAY Self - patient is the insured MEDICAL (GENERAL) HISTORY Medical History History ICD Code colonoscopy 10/30/16, tubular adenoma x2, five-year followup recommended nephrolithiasis sleep apnea (CPAP) hypertension restless leg syndrome Atrial fibrillation Pulmonary embolism Covid 19 infection Hyperlipidemia Surgical History Surgery Date(Month/Year) appendectomy partial thyroidectomy vein ligation wisdom teeth extraction lithotripsy multiple cyst on liver 2018
[2024-07-01 00:23] LABS: Thyroglobulin <0.1 ng/mL; Thyroglobulin Antibodies 18 IU/mL (< or = 1)
== END 2024-06-29 13:34 | disposition home or self-care (01) ==
LOC: HO.LAB 13:33
PROVIDERS: PCP Internal Medicine; Visit Provider Student in an Organized Health Care Education/Training Program
DX: Z85.850 Personal history of malignant neoplasm of thyroid (principal); C73 Malignant neoplasm of thyroid gland; E78.00 Pure hypercholesterolemia, unspecified; I48.0 Paroxysmal atrial fibrillation; I48.91 Unspecified atrial fibrillation; Z12.5 Encounter for screening for malignant neoplasm of prostate; Z13.1 Encounter for screening for diabetes mellitus
CPT/HCPCS: 36415; 80053; 80061; 82607; 82746; 83036; 84153; 84432; 84439; 84443; 84550; 85025; 86800

== ENCOUNTER 2024-07-05 13:44 | Outpatient (REF) | payer BC, SELFPAY ==
--- NOTE | ~2024-07-05 | US_ITS ---
CLINICAL HISTORY: Z85.850 - Personal history of malignant neoplasm of thyroid US head and neck non thyroid Comparison: None Findings: Status post thyroidectomy. No residual thyroid tissue in the bed. Small morphologically normal bilateral cervical lymph nodes. Impression: 1. No residual thyroid tissue in the thyroidectomy bed. 2. Morphologically normal appearing bilateral cervical lymph nodes. [employer] TI-RADS Categories TR1 and TR2 nodules do not have follow-up recommendations TR3 (FNA >= 2.5cm, F/U >= 1.5cm at 1, 3, and 5 yrs) TR4 (FNA >= 1.5cm, F/U >= 1cm at 1, 2, 3, and 5 yrs) TR5 (FNA >= 1cm, F/U >= 0.5cm annually for up to 5 yrs) This document has been electronically signed by: Radha Delvalle MD on 07/08/2024 05:00:59
== END 2024-07-05 13:45 | disposition home or self-care (01) ==
LOC: HO.HMGCX 13:44
PROVIDERS: PCP Internal Medicine; Visit Provider Student in an Organized Health Care Education/Training Program
DX: Z85.850 Personal history of malignant neoplasm of thyroid (principal)
CPT/HCPCS: 76536

== ENCOUNTER → 2024-07-05 13:47 | Outpatient (BNV) | payer BC, SELFPAY | PROVIDERS: PCP Internal Medicine; Visit Provider Radiology Diagnostic Radiology | DX: Z85.850 Personal history of malignant neoplasm of thyroid (principal) | CPT/HCPCS: 76536 ==

== ENCOUNTER 2024-07-22 13:56 | Outpatient (AMB) | payer BC, SELFPAY ==
--- NOTE | 2024-07-22 14:00 | MHC.PC.OV ---
Vital Signs 07/22/24 14:01 Height 6 ft 3 in Weight 262 lb BMI 32.7 BP 132/60 Blood Pressure Location Lt brachial Position Sitting Pulse 65 Pulse Source Pulse Oximeter Pulse Oximetry (%) 96 Oxygen Delivery Method Room Air Intake Visit Reasons: Afib Intake Note: Patient here for a Afib Prosthetics Technician Required: No Accompanied by: Self / Same As Patient Allergies No Known Allergies [No Known Allergies*] Allergy (Verified 07/22/24 14:03) Tobacco use date assessed: 07/22/24 Fall risk assessment: No Falls in past year Last assessed Fall Risk: 07/22/24 Dental Screening Dental Screen Date: 07/22/24 Did you have a dental visit in the last 12 months?: Yes Did you have a dental problem in the last 6 months where you did not have access to dental care?: No Was dental information given to patient?: Patient has dentist HPI Afib HPI Details The patient is a 69-year-old male presenting for a wellness visit and management of chronic conditions. He reports a history of allergic rhinitis, manifesting as coughing and sneezing, which appears to be attributive to allergies. He previously received vaccinations for influenza and COVID-19, with an emphasis on maintaining up-to-date immunization due to the current flu season, COVID-19, and RSV prevalence. The patient has a documented history of hyperlipidemia, with recent blood work indicating a low-density lipoprotein (LDL) cholesterol level at 105 mg/dL, which is within the desired range. His thyroid disorder is currently managed with medication, and he recently adjusted the dose to levothyroxine 137 mcg based on prior blood test results. The patient reports longstanding varicose veins, for which he uses compression stockings with positive effects on symptom relief. He practices chair yoga to accommodate back issues and states that this helps with mobility and social engagement. Furthermore, the patient discusses peripheral neuropathy and anticipates undergoing an electromyography (EMG) test soon for further assessment of symptoms, which have been causing discomfort. He mentions maintaining adequate hydration as part of managing his overall health. [facility] Medical History (Updated 06/29/24 @ 14:34 by Belia Mosley MD) History of thyroid cancer PAF (paroxysmal atrial fibrillation) Hepatic cyst Thyroid cancer Arthritis Vitamin D deficiency Multinodular thyroid Thyroid enlargement Acute respiratory failure with hypoxia Bacteremia Left bundle branch block Paroxysmal atrial fibrillation Atrial fibrillation with rapid ventricular response Scoliosis Hip pain Polycystic liver disease Tubular adenoma of colon Hypertension Obstructive sleep apnea History of kidney stones Hypercholesterolemia Obesity GERD (gastroesophageal reflux disease) Surgical History History of appendectomy History of colonoscopy History of lithotripsy History of removal of cyst History of thyroidectomy Family History Father Medical history unknown Mother Medical history unknown Social History Household Members: None Housing: House Do you presently have visiting nurse or other home services: No Alcohol intake: never Comment: HX SCOLIOSIS, FALL OUTSIDE 2 MONTHS AGO Patient Tobacco Use Status: Never used Tobacco e-Cigarette/Vaping Use: Never Used Second Hand Smoke Exposure: No service: No Current occupational status: retired Cognitive needs: No Hearing needs: No Vision needs: Yes Questionnaire PHQ-9 Over the last 2 weeks, how often have you been bothered by any of the following problems? 1. Little interest or pleasure in doing things: not at all 2. Feeling down, depressed, or hopeless: not at all 3. Trouble falling or staying asleep, or sleeping too much: not at all 4. Feeling tired or having little energy: not at all 5. Poor appetite or overeating: not at all 6. Feeling bad about yourself - or that you are a failure or have let yourself or your family down: not at all 7. Trouble concentrating on things, such as reading the newspaper or watching television: not at all 8. Moving or speaking so slowly that other people could have noticed. Or the opposite - being so fidgety or restless that you have been moving around a lot more than usual: not at all 9. Thoughts that you would be better off or of hurting yourself in some way: not at all Total score: 0 Source: Developed by Drs. Billy Sage, Ani Portillo, Rony Alvarez and colleagues, with an educational raymond from [employer]. Thrive Questionnaire Date Thrive assessed: 07/22/24 I am a: Patient What is your living situation today?: I have a steady place to live Within the past 12 months, did the food you bought not last and you didn't have the money to get more?: Never true Within the past 12 months, did you worry whether your food would run out before you got money to buy more?: Never true Do you have trouble paying for medicines?: No Do you have trouble getting transportation to medical appointments?: No Do you have trouble paying your heating and electricity bill?: No Do you have trouble taking care of your child, family member or friend?: No Do you have trouble with day-to-day activities such as bathing, preparing meals, shopping, managing finances, etc.?: No Are you currently unemployed and looking for a job?: No Are you interested in more education?: No Please select the resources that you would like help with: None Currently or been in a relationship where the following occur: No concerns reported THRIVE Score: 0 AUDIT C Alcohol Use Questionnaire (AUDIT-C) 1. How often do you have a drink containing alcohol?: Never Total Score: 0 SANNA-7 AMB Questionnaire SANNA-7 Date SANNA - 7 assessed: 07/22/24 Feeling nervous, anxious, or on edge: 0 = Not at all Not being able to stop or control worryin = Not at all Worrying too much about different things: 0 = Not at all Trouble relaxin = Not at all Being so restless that it is hard to sit still: 0 = Not at all Becoming easily annoyed or irritable: 0 = Not at all Feeling afraid as if something awful might happen: 0 = Not at all Total SANNA-7 score (0-4 normal; 5-9 mild; 10-14 moderate; 15-21 severe): 0 Source: Developed by Drs. Billy Sage, Ani Portillo, Rony Alvarez and colleagues, with an educational raymond from [employer]. Physical exam (Primary Care) Vital Signs: Last Vital Signs Pulse 65 07/22/24 14:01 BP 132/60 07/22/24 14:01 Pulse Ox 96 07/22/24 14:01 Oxygen Delivery Method Room Air 07/22/24 14:01 BMI result Body Mass Index 32.7 Tobacco/Smoking Status: Tobacco use Status Tobacco use date assessed 07/22/24 07/22/24 14:07 Patient Tobacco Use Status Never used Tobacco 07/22/24 14:07 e-Cigarette/Vaping Use Never Used 07/22/24 14:07 PHQ-9: PHQ-9 Score PHQ-9: Total score 0 07/22/24 14:07 Thrive Assessment: Date of Thrive Assessment Date Thrive assessed 07/22/24 07/22/24 14:07 Currently or been in a relationship where the following occur: No concerns reported Const General: alert; No acute distress Eyes Conjunctivae: conjunctivae normal Resp Auscultation: clear to auscultation bilaterally Cardio Rate: regular rate Rhythm: regular rhythm GI Inspection: Yes normal to inspection Extrem General: Yes normal to inspection and No edema Coding Level of Care Code Est Pt Level 4 (57959) Complex EM visit Add On G2211 Diagnoses History of thyroid cancer Z85.850 PAF (paroxysmal atrial fibrillation) I48.0 Impaired glucose tolerance R73.02 Nephrolithiasis N20.0 GLENN on CPAP G47.33; Z99.89 Essential hypertension I10 Hypertension type: essential hypertension Hypercholesterolemia E78.00 Class 1 obesity due to excess calories without serious comorbidity with body mass index (BMI) of 30.0 to 30.9 in adult E66.09; Z68.30 Obesity type: due to excess calories Obesity classification: adult class 1 (BMI 30 - 34.9) Serious obesity comorbidity presence: without serious comorbidity Body mass index: BMI 30.0-30.9 Gastroesophageal reflux disease without esophagitis K21.9 Esophagitis presence: without esophagitis Assessment & Plan Assessment & Plan (1) History of thyroid cancer: Code(s): Z85.850 - Personal history of malignant neoplasm of thyroid Category: Medical (2) PAF (paroxysmal atrial fibrillation): Code(s): I48.0 - Paroxysmal atrial fibrillation Category: Medical (3) Impaired glucose tolerance: Code(s): R73.02 - Impaired glucose tolerance (oral) Category: Medical (4) Nephrolithiasis: Code(s): N20.0 - Calculus of kidney Category: Medical (5) GLENN on CPAP: Comment: Mild degree of sleep apnea. The total AHI was 9/hr and oxygen shawn was 82 %. Code(s): G47.33 - Obstructive sleep apnea (adult) (pediatric); Z99.89 - Dependence on other enabling machines and devices Category: Medical (6) Hypertension: Code(s): I10 - Essential (primary) hypertension Category: Medical Qualifiers: Hypertension type: essential hypertension Qualified Code(s): I10 - Essential (primary) hypertension (7) Hypercholesterolemia: Code(s): E78.00 - Pure hypercholesterolemia, unspecified Category: Medical (8) Obesity: Code(s): E66.9 - Obesity, unspecified Category: Medical Qualifiers: Obesity type: due to excess calories Obesity classification: adult class 1 (BMI 30 - 34.9) Serious obesity comorbidity presence: without serious comorbidity Body mass index: BMI 30.0-30.9 Qualified Code(s): E66.09 - Other obesity due to excess calories; Z68.30 - Body mass index [BMI]30.0-30.9, adult (9) GERD (gastroesophageal reflux disease): Code(s): K21.9 - Gastro-esophageal reflux disease without esophagitis Category: Medical Qualifiers: Esophagitis presence: without esophagitis Qualified Code(s): K21.9 - Gastro-esophageal reflux disease without esophagitis Plan - Continue current management of allergic rhinitis with avoidance strategies and monitor for symptoms. Consider medications if symptoms worsen. - Maintain current lipid management given LDL cholesterol is within target levels. Continue with lifestyle modifications. - Continue thyroid hormone therapy at the current dose of levothyroxine 137 mcg. Monitor thyroid function tests periodically. - Encourage continued use of compression stockings for symptomatic relief of varicose veins. - Arrange for scheduled EMG testing to evaluate the extent and progression of neuropathy. - Reinforce flu vaccination and discuss any missed vaccinations as a preventive measure. - Encourage continuation of chair yoga for musculoskeletal health and overall wellness. - Advise maintaining hydration and general wellness practices, including hygiene measures to avoid seasonal infections.
[2024-07-22 14:01] VITALS: BP 132/60; PULSE 65; O2SAT 96; BMI 32.7
--- OUTSIDE RECORDS SUMMARY | 2024-07-22 17:51 | XMS_ITS | Data Portability ---
Author Organization [place] - [facility], [facility] Address [address] [place] [address] Care Team Providers Care Floor Runner Name Role Phone DEPARTMENT [facility] Primary Care Provi sia [...] By Organization Details Last Modified Time 03/15/2024 [id number] orthopedic surgery* - Reason for Order: Massage [...] Updated DateTime 03/15/2024 187.96 cm 32.1 kg/m2 219203.09 g Kimberly Iqbal [place] - [facility] 03/15/2024 12:19:08 Social History None recorded. Functional Status None recorded. Mental Status None recorded. Family History Nothing Reported. Medical History No medical history recorded. Past Encounters Encounter ID Performer Location Encounter Start Date Encounter Closed Date Diagnosis/Indication Diagnosis SNOMED-CT Code Diagnosis ICD10 Code Diagnosis Note [id number] JO[facility] Thompson [address] [place] [address] 03/15/2024 11:58:29 04/13/2024 12:39:18 Lumbar radiculopathy 625533412 M54.16 Health Concerns Section Related Observation LastModified by Organization Detai ls LastModified Time None Recorded Concern Status LastModified by Organization Details LastModified Time None Recorded Advance Directives Directive None Recorded Payers Encounter Date Sequence Insurance Name Policy Number Policy Blankenship Covered Member ID Blankenship Member ID Guarantor Name 03/15/2024 OPT - ID [employer] [facility] [facility] Mario Nice [id number] Mario Nice Notes Date Note Type Note [...] the affected side. Strength and sensation intact. Re? e xes normal. No ankle clonus. MRI [...] will follow-up if needed in the future. [employer] speech recognition microbiology laboratory manager software was used to create portions of this document. An attempt at proofreading has been made to minimize errors. Please call for corrections. Danette Martinez PA-C [address] [facility] [address], [place], [address], [facility] 03/15/2024 14:01:00
--- OUTSIDE RECORDS SUMMARY | 2024-07-22 17:51 | XMS_ITS | Patient Health Record ---
Author Organization [facility] Address [address] [place] [address] Care Team Providers Care Piano Sounding Board Matcher Name Role Phone Po Bhakti AUGUSTIN Primary Care Provider Hector Daniel Jr Unavailable [phone] REASON FOR REFERRAL No Information MEDICATIONS Medication [...] Problem Colon cancer screening (Z12.11) Active confirmed 650260893 Problem Encounter for other preprocedural examination (Z01.818) Active confirmed 38484937 Problem Long-term current use of high risk medication other than anticoagulant (Z79.899) Active confirmed 504142407 Problem Liver cyst (K76.89) Active confirmed 85 615618 Problem Left lower quadrant pain (R10.32) Active confirmed 207365667 Problem Personal history of colonic polyps (Z86.010) Active confirmed 842741885 Problem [facility] (current) use of 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 (Z79.01) Active confirmed 617424110 PLAN OF TREATMENT Future Test Test Name Order Date COLONOSCOPY 09/04/2016 COLONOSCOPY 12/20/2021 Insurance Providers Payer Name Payer Address Payer Phone Subscriber Number Group Number Insured Name Patient Relationship to Insured Coverage Start Date Coverage End Date [facility] [address] [place], [place] [id number] ABHILASH GARAY Self - patient is the [...]
== END 2024-07-22 14:34 | disposition home or self-care (01) ==
PROVIDERS: PCP Internal Medicine; Visit Provider Internal Medicine
DX: Z85.850 Personal history of malignant neoplasm of thyroid (principal); I48.0 Paroxysmal atrial fibrillation; R73.02 Impaired glucose tolerance (oral); N20.0 Calculus of kidney; G47.33 Obstructive sleep apnea (adult) (pediatric); Z99.89 Dependence on other enabling machines and devices; I10 Essential (primary) hypertension; E78.00 Pure hypercholesterolemia, unspecified; E66.09 Other obesity due to excess calories; Z68.30 Body mass index [BMI] 30.0-30.9, adult; K21.9 Gastro-esophageal reflux disease without esophagitis

== ENCOUNTER 2024-08-18 10:19 | Outpatient (REF) | payer BC, SELFPAY ==
--- OUTSIDE RECORDS SUMMARY | 2024-08-18 12:36 | XMS_ITS | Patient Health Record ---
Author Organization [facility] Address [address] [place] [address] Care Team Providers Care Senior Cyber Security Analyst Name Role Phone Po Bhakti AUGUSTIN Primary [...] Problem Colon cancer screening (Z12.11) Active confirmed 403698803 Problem Left lower quadrant pain (R10.32) Active confirmed 590830860 Problem medicare sales representative (current) use of 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 (Z79.01) Active confirmed 029336625 Problem Personal history of colonic polyps (Z86.010) Active confirmed 510332553 Problem Encounter for other preprocedural examination (Z01.818) Active confirmed 36178639 Problem Long-term current use of high risk medication other than anticoagulant (Z79.899) Active confirmed 319745370 Problem Liver cyst (K76.89) Active confirmed 85 516786 PLAN OF TREATMENT Future Test Test Name Order Date COLONOSCOPY 09/04/2016 COLONOSCOPY 12/20/2021 Insurance Providers Payer Name Payer Address Payer Phone Subscriber Number Group Number Insured Name Patient Relationship to Insured Coverage Start Date Coverage End Date [facility] [address] [place], [place] [id number] [phone] [id number] ABHILASH GARAY Self - patient is the [...]
[2024-08-18 14:18] LABS: Free T4 (Free Thyroxine) 1.27 ng/dL (0.71-1.85); Thyroid Stimulating Hormone 0.85 uIU/mL (0.32-4.0)
[2024-08-27 16:23] LABS: Thyroglobulin Antibody 12 IU/mL (<=1); Thyroglobulin LC/MS/MS <0.4 ng/mL (Athyrotic: <0)
== END 2024-08-18 10:20 | disposition home or self-care (01) ==
LOC: HO.HMGCLDS 10:19
PROVIDERS: PCP Internal Medicine; Visit Provider Student in an Organized Health Care Education/Training Program
DX: Z85.850 Personal history of malignant neoplasm of thyroid (principal)
CPT/HCPCS: 36415; 84432; 84439; 84443; 86800

== ENCOUNTER 2024-09-30 12:04 | Outpatient (AMB) | payer BC, SELFPAY ==
--- NOTE | 2024-09-30 12:36 | MHC.PC.OV ---
Vital Signs 09/30/24 12:42 Height 6 ft 3 in Weight 258 lb 6 oz BMI 32.3 BP 120/60 Blood Pressure Location Lt brachial Position Sitting Pulse 59 Pulse Source Pulse Oximeter Temp 97.3 F Temp Source Temporal Artery Scan Pulse Oximetry (%) 95 Oxygen Delivery Method Room Air Intake Visit Reasons: annual exam Intake Note: Patient is here today for a physical. Forest Resource Specialist Required: No Active Directory Architect: Not Required per policy Accompanied by: Self / Same As Patient Allergies No Known Allergies [No Known Allergies*] Allergy (Verified 09/30/24 12:45) Medication List - Last Reconciled 09/30/24 by Bhakti Reyes MD alclometasone 0.05% 1 appl topical BID PRN allopurinol 100 mg PO DAILY 90 days atorvastatin 10 mg PO DAILY 90 days diltiazem HCl CD (Cardizem CD) 120 mg PO DAILY levothyroxine 137 mcg PO DAILY metoprolol succinate ER 50 mg PO DAILY niacin 500 mg PO DAILY nystatin 5 mL PO TID 7 days [id number]-fish oil 300-1,000 mg (Sparks-3 Fish Oil) 1 cap PO DAILY potassium citrate ER 20 mEq (2 x 10 mEq (1,080 mg)) PO BID 90 days rivaroxaban 20 mg PO DAILY Tobacco use date assessed: 09/30/24 Fall risk assessment: No Falls in past year Last assessed Fall Risk: 09/30/24 Dental Screening Dental Screen Date: 07/22/24 [facility] annual exam HPI Details Sclerotherapy left leg. [facility] Medical History (Updated 09/30/24 @ 13:05 by Bhakti Reyes MD) History of thyroid cancer PAF (paroxysmal atrial fibrillation) Hepatic cyst Thyroid cancer Arthritis Vitamin D deficiency Multinodular thyroid Thyroid enlargement Acute respiratory failure with hypoxia Bacteremia Left bundle branch block Paroxysmal atrial fibrillation Atrial fibrillation with rapid ventricular response Scoliosis Hip pain Polycystic liver disease Tubular adenoma of colon Hypertension Obstructive sleep apnea History of kidney stones Hypercholesterolemia Obesity GERD (gastroesophageal reflux disease) Surgical History History of appendectomy History of colonoscopy History of lithotripsy History of removal of cyst History of thyroidectomy Family History Father Medical history unknown Mother Medical history unknown Social History (Updated 04/10/25 @ 12:55 by Bhakti Reyes MD) Household Members: None Housing: House Do you presently have visiting nurse or other home services: No Alcohol intake: never Comment: HX SCOLIOSIS, FALL OUTSIDE 2 MONTHS AGO. stopped 2021 Patient Tobacco Use Status: Never used Tobacco e-Cigarette/Vaping Use: Never Used Second Hand Smoke Exposure: No service: No Current occupational status: retired Cognitive needs: No Hearing needs: No Vision needs: Yes Questionnaire PHQ-9 Over the last 2 weeks, how often have you been bothered by any of the following problems? 1. Little interest or pleasure in doing things: nearly every day 2. Feeling down, depressed, or hopeless: nearly every day 3. Trouble falling or staying asleep, or sleeping too much: nearly every day 4. Feeling tired or having little energy: nearly every day 5. Poor appetite or overeating: not at all 6. Feeling bad about yourself - or that you are a failure or have let yourself or your family down: not at all 7. Trouble concentrating on things, such as reading the newspaper or watching television: not at all 8. Moving or speaking so slowly that other people could have noticed. Or the opposite - being so fidgety or restless that you have been moving around a lot more than usual: not at all 9. Thoughts that you would be better off or of hurting yourself in some way: not at all Total score: 12 43866 - PHQ-9 Billing: Yes Source: Developed by Drs. Billy Sage, Ani Portillo, Rony Alvarez and colleagues, with an educational raymond from [employer] Thrive Questionnaire Date Thrive assessed: 09/30/24 I am a: Patient What is your living situation today?: I have a steady place to live Within the past 12 months, did the food you bought not last and you didn't have the money to get more?: I choose not to answer this question Within the past 12 months, did you worry whether your food would run out before you got money to buy more?: I choose not to answer this question Do you have trouble paying for medicines?: I choose not to answer this question Do you have trouble getting transportation to medical appointments?: No Do you have trouble paying your heating and electricity bill?: I choose not to answer this question Do you have trouble taking care of your child, family member or friend?: I choose not to answer this question Do you have trouble with day-to-day activities such as bathing, preparing meals, shopping, managing finances, etc.?: No Are you currently unemployed and looking for a job?: No Are you interested in more education?: I choose not to answer this question Please select the resources that you would like help with: None Currently or been in a relationship where the following occur: I choose not to answer THRIVE Score: 0 AUDIT C Alcohol Use Questionnaire (AUDIT-C) 1. How often do you have a drink containing alcohol?: Never 3. How often do you have six or more drinks on one occasion?: Never Total Score: 0 SANNA-7 AMB Questionnaire SANNA-7 Date SANNA - 7 assessed: 09/30/24 Feeling nervous, anxious, or on edge: 0 = Not at all Not being able to stop or control worryin = Not at all Worrying too much about different things: 0 = Not at all Trouble relaxin = Not at all Being so restless that it is hard to sit still: 3 = Nearly every day Becoming easily annoyed or irritable: 0 = Not at all Feeling afraid as if something awful might happen: 0 = Not at all Total SANNA-7 score (0-4 normal; 5-9 mild; 10-14 moderate; 15-21 severe): 3 Source: Developed by Drs. Billy Sage, Ani Portillo, Rony Alvarez and colleagues, with an educational raymond from [employer] SANNA-7 Assessment Billing SANNA-7 Assessment Tool: SANNA-7 Assessment 48426 Review of Systems Const Denies poor appetite and Denies weakness Eyes Denies no additional complaints ENT Reports Normal hearing present, Denies dizziness, Denies nasal congestion, Denies tinnitus and Denies sore throat Card Denies chest pain, Denies syncope, Denies rapid heart rate and Denies dyspnea Resp Denies cough and Denies dyspnea GI Denies change in stool character, Reports constipation, Denies diarrhea, Denies nausea and Denies vomiting Denies dysuria and Denies urinary frequency Neuro Reports Normal hearing present, Denies confusion, Denies dizziness, Denies syncope and Denies weakness Psych Denies confusion Physical exam (Primary Care) Vital Signs: Last Vital Signs Temp 97.3 F 09/30/24 12:42 Pulse 59 09/30/24 12:42 BP 120/60 09/30/24 12:42 Pulse Ox 95 09/30/24 12:42 Oxygen Delivery Method Room Air 09/30/24 12:42 BMI result Body Mass Index 32.3 Tobacco/Smoking Status: Tobacco use Status Tobacco use date assessed 09/30/24 09/30/24 12:46 Patient Tobacco Use Status Never used Tobacco 09/30/24 12:55 e-Cigarette/Vaping Use Never Used 09/30/24 12:55 PHQ-9: PHQ-9 Score PHQ-9: Total score 12 09/30/24 12:49 Thrive Assessment: Date of Thrive Assessment Date Thrive assessed 09/30/24 09/30/24 12:36 Currently or been in a relationship where the following occur: I choose not to answer Const General: No confusion Orientation/consciousness: No confusion HENMT Head: Yes normocephalic Ears: external ears normal and TM's normal bilaterally Face and sinus: Yes normal facial exam Mouth: moist mucous membranes Throat: Yes tonsils normal Eyes Conjunctivae: conjunctivae normal Pupils: Equal, round and reactive pupils present and Pupil accommodation reflex normal Direct Ophthalmoscopy: normal light reflex Neck Neck: No lymphadenopathy Thyroid: Thyroid normal Chest Chest palpation & inspection: normal inspection of the chest Resp Effort & Inspection: normal respiratory effort and no audible wheezes Auscultation: clear to auscultation bilaterally, no crackles, no wheezes and lung sounds not diminished Cardio Rate: regular rate Rhythm: regular rhythm Peripheral pulses: radial pulses present and dorsalis pedis present GI Other: ? L prostate nodule , guiaiac negative Palpation (GI): no masses Auscultation: normal bowel sounds and normoactive bowel sounds Male General Exam: Yes normal external exam Skin General skin exam: no rashes or lesions noted Rashes: no rashes Neuro General: No confusion Cranial nerves: Yes Equal, round and reactive pupils present and Yes Normal hearing present Cognition (Neuro): normal cognition Gait exam (Neuro): Normal gait present Motor exam (neuro): 5/5 motor strength present throughout Deep tendon reflexes (DTR's): Right brachioradialis reflex intensity grade: 2+, Left brachioradialis reflex intensity grade: 2+, Right patellar reflex intensity grade: 2+ and Left patellar reflex intensity grade: 2+ Extrem General: No edema Coding Level of Care Code Est Pt Prev Care >65y(69636) Diagnoses Physical exam, annual Z00.00 History of thyroid cancer Z85.850 PAF (paroxysmal atrial fibrillation) I48.0 Impaired glucose tolerance R73.02 Pulmonary embolism I26.93 Pulmonary embolism type: single subsegmental (without acute cor pulmonale) Nephrolithiasis N20.0 GLENN on CPAP G47.33; Z99.89 Essential hypertension I10 Hypertension type: essential hypertension Hypercholesterolemia E78.00 Class 1 obesity due to excess calories without serious comorbidity with body mass index (BMI) of 30.0 to 30.9 in adult E66.09; Z68.30 Body mass index: BMI 30.0-30.9 Obesity classification: adult class 1 (BMI 30 - 34.9) Obesity type: due to excess calories Serious obesity comorbidity presence: without serious comorbidity Gastroesophageal reflux disease without esophagitis K21.9 Esophagitis presence: without esophagitis Prostate nodule N40.2 Additional Codes SANNA-7 Assessment Billing - SANNA-7 Assessment Tool: SANNA-7 Assessment [id number] ([id number]) PHQ-9 - 30675 - PHQ-9 Billing: Yes ([id number]) Assessment & Plan Assessment & Plan (1) Physical exam, annual: Code(s): Z00.00 - Encounter for general adult medical examination without abnormal findings Category: Medical Plan: Patient is advised to eat healthy, keep well hydrated, keep active and have adequate sleep. (2) History of thyroid cancer: Code(s): Z85.850 - Personal history of malignant neoplasm of thyroid Category: Medical Plan: Recent ultrasound patient follows up with endocrinology low risk of recurrence (3) PAF (paroxysmal atrial fibrillation): Code(s): I48.0 - Paroxysmal atrial fibrillation Category: Medical Plan: Continue with diltiazem 120 mg once a day on rivaroxaban (4) Impaired glucose tolerance: Code(s): R73.02 - Impaired glucose tolerance (oral) Category: Medical Plan: Decrease the amount of carbohydrate intake, pasta, bread, rice and potatoes are all sugar and that is aside from all the sweet stuff, remember that fruits are good but they are Sweet also. (5) Pulmonary embolism: Code(s): I26.99 - Other pulmonary embolism without acute cor pulmonale Category: Medical Qualifiers: Pulmonary embolism type: single subsegmental (without acute cor pulmonale) Qualified Code(s): I26.93 - Single subsegmental pulmonary embolism without acute cor pulmonale Plan: Patient on rivaroxaban (6) Nephrolithiasis: Code(s): N20.0 - Calculus of kidney Category: Medical Plan: Keep well hydrated presently on potassium citrate (7) GLENN on CPAP: Comment: Mild degree of sleep apnea. The total AHI was 9/hr and oxygen shawn was 82 %. Code(s): G47.33 - Obstructive sleep apnea (adult) (pediatric); Z99.89 - Dependence on other enabling machines and devices Category: Medical Plan: Continue to use the CPAP more than 4 hours a night and benefits from this (8) Hypertension: Code(s): I10 - Essential (primary) hypertension Category: Medical Qualifiers: Hypertension type: essential hypertension Qualified Code(s): I10 - Essential (primary) hypertension Plan: Continue with blood pressure medication. Decrease salt intake and exercise patient on metoprolol 50 mg once a day diltiazem 120 mg once a day (9) Hypercholesterolemia: Code(s): E78.00 - Pure hypercholesterolemia, unspecified Category: Medical Plan: Avoid fried foods, chicken skin, eggs, butter margarine, pastries and meat. Be it pork or beef they have a lot of cholesterol on atorvastatin LDL goal of less than 130 and triglyceride of less than 150 (10) Obesity: Code(s): E66.9 - Obesity, unspecified Category: Medical Qualifiers: Body mass index: BMI 30.0-30.9 Obesity classification: adult class 1 (BMI 30 - 34.9) Obesity type: due to excess calories Serious obesity comorbidity presence: without serious comorbidity Qualified Code(s): E66.09 - Other obesity due to excess calories; Z68.30 - Body mass index [BMI]30.0-30.9, adult Plan: Diet and exercise (11) GERD (gastroesophageal reflux disease): Code(s): K21.9 - Gastro-esophageal reflux disease without esophagitis Category: Medical Qualifiers: Esophagitis presence: without esophagitis Qualified Code(s): K21.9 - Gastro-esophageal reflux disease without esophagitis Plan: Avoid the foods that causes that usually spicy foods, tomato products, juices, coffee, soda and foods that your sensitive to. After eating do not lie down, allow 3-4 hours before in lie down. And keep the head of bed above 30 degrees to avoid the acid from going up. (12) Prostate nodule: Code(s): N40.2 - Nodular prostate without lower urinary tract symptoms Category: Medical Plan History of Present Illness The patient is a 69-year-old male presenting for his annual physical examination. He is known to have multiple chronic conditions, including GERD, hypercholesterolemia, and nephrolithiasis managed with medications and lifestyle modifications. A recent medical examination revealed venous issues; a DVT was identified, and sclerotherapy was recommended to manage venous hypertension. Further, he is status post-thyroidectomy due to thyroid cancer and is presently on atrial fibrillation management. His last blood work from June 2024 displayed stable health indices, with particular attention paid to blood pressure, cholesterol, and glucose markers. Notably, an examination uncovered a prostate nodule for which an ultrasound is planned. Health Maintenance - Patient has undergone colonoscopy as of 2021. - Follows up with endocrinology due to thyroid cancer history. - CPAP is used >4 hours/night for obstructive sleep apnea. - Recently underwent a venous insufficiency study and follows up with a vascular surgeon. - Last pneumonia shot given in 2021, next due in 2022. - Tetanus and shingles vaccinations are up to date. - COVID-19 vaccination reported. - Bloodwork: normal except LDL of 105. Social History - Exercises yoga twice weekly. - Celebrates a 3-year abstinence from alcohol. - Does not use recreational drugs or smoke. - Engages in minimal cardio exercise beyond yoga; advised to increase cardio activity. - Reports nocturia; consumes water before bed. Review of Systems - Cardiovascular: Denies chest pain, heaviness, shortness of breath during activity. - Respiratory: Denies waking up short of breath. - Gastrointestinal: Reports GERD; denies swallowing difficulties. - Genitourinary: Reports nocturia of 2-3 times nightly. - Musculoskeletal: Reports leg aches. - Neurological: Denies dizziness, fainting. - Psychological: Denies anxiety, depression. - Dermatological: Denies any lumps, bumps noted. - Constitutional: Denies fevers, nausea, vomiting. Physical Exam General: Cooperative, healthy appearing, comfortable, no acute distress and well developed Orientation: Patient oriented x3 Limitations: No limitations Head: Normal to inspection Ears: Hearing great bilaterally Nose: Normal external nose present Face and sinus: Normal facial exam Eyes: Appearance normal, both eyes and all related structures Neck: Normal visual inspection and Yes full ROM Respiratory: Normal respiratory effort and able to speak in complete sentences. Clear to auscultation bilaterally Cardiovascular: Regular rate and rhythm. Normal S1 and S2 GI: Normal to inspection. Soft to palpation and nontender Skin: No rashes or lesions noted Neuro: Patient oriented x3 Extremities: Normal to inspection Results - Labs: Normal blood count, normal electrolytes, normal renal function, normal blood sugar, normal liver function, LDL 105. - Tests: Recent venous insufficiency study showed DVT in the left mid-femoral vein. - Diagnostics: Ultrasound of the neck showed no residual thyroid tissue. Plan The patient?s health maintenance and chronic conditions are managed with medications and lifestyle interventions. Regular exercise is encouraged to support weight management and cardiovascular health. LDL cholesterol levels are targeted at <130 mg/dL with atorvastatin. Management of nephrolithiasis involves adequate hydration. Sleep apnea symptoms are controlled with CPAP compliance. Venous issues are being addressed with a planned sclerotherapy and continued anticoagulation is critical following DVT. Prostate evaluation is recommended through ultrasound due to the nodule detected. Patient was informed and verbally consented to the use of an ambient scribe for clinic note documentation during this visit. Discussion Notes Discussed with the patient the benefits of ongoing medication and lifestyle changes in managing chronic conditions, such as hypercholesterolemia and GERD, emphasizing the importance of diet and exercise. The need for consistent CPAP use for apnea management and increased cardio activity was recommended. We discussed the ultrasound plan for prostate assessment following the nodule?s detection. Venous insufficiency management through sclerotherapy was explained. The importance of maintaining hydration given his nephrolithiasis and continued anticoagulation therapy for DVT was stressed. Follow-up considerations include reassessment based on the prostate ultrasound results and venous sufficiency status. Patient Instructions - Increase cardio exercise in addition to yoga practices. - Ensure consistent use of CPAP device for apnea management. - Maintain a heart-healthy diet to help manage cholesterol levels. - Increase fluid intake to prevent kidney stone recurrence. - Follow advice to avoid water intake before bed to manage nocturia. - Expect communication regarding scheduled prostate ultrasound. - Contact the office if symptoms worsen or for concerns related to anticoagulant use. Orders: Orders US prostate volume Today N40.2 - Nodular prostate without lower urinary tract symptoms
[2024-09-30 12:42] VITALS: BP 120/60; PULSE 59; TEMP 36.3; O2SAT 95; BMI 32.3
--- OUTSIDE RECORDS SUMMARY | 2024-09-30 14:43 | XMS_ITS ---
Author Name [facility] Organization Unknown Care Team Organization Name Specialty Phone Email Start Date End Da te [facility] 01/2309/04/2024 [facility] 01/22
== END 2024-09-30 13:11 | disposition home or self-care (01) ==
LOC: HO.HMCH 12:05
PROVIDERS: PCP Internal Medicine; Visit Provider Internal Medicine
DX: Z00.00 Encounter for general adult medical examination without abnormal findings (principal); I48.0 Paroxysmal atrial fibrillation; I26.93 Single subsegmental thrombotic pulmonary embolism without acute cor pulmonale; Z85.850 Personal history of malignant neoplasm of thyroid; R73.02 Impaired glucose tolerance (oral); N20.0 Calculus of kidney; G47.33 Obstructive sleep apnea (adult) (pediatric); Z99.89 Dependence on other enabling machines and devices; I10 Essential (primary) hypertension; E78.00 Pure hypercholesterolemia, unspecified; E66.09 Other obesity due to excess calories; Z68.30 Body mass index [BMI] 30.0-30.9, adult

== ENCOUNTER → 2024-09-30 12:04 | Outpatient (BNVA) | payer BC, SELFPAY | PROVIDERS: PCP Internal Medicine; Visit Provider Internal Medicine | DX: Z00.00 Encounter for general adult medical examination without abnormal findings (principal); I48.0 Paroxysmal atrial fibrillation; R73.02 Impaired glucose tolerance (oral); I26.93 Single subsegmental thrombotic pulmonary embolism without acute cor pulmonale; N20.0 Calculus of kidney; G47.33 Obstructive sleep apnea (adult) (pediatric); I10 Essential (primary) hypertension; E78.00 Pure hypercholesterolemia, unspecified; E66.09 Other obesity due to excess calories; Z68.30 Body mass index [BMI] 30.0-30.9, adult; K21.9 Gastro-esophageal reflux disease without esophagitis; N40.2 Nodular prostate without lower urinary tract symptoms; Z85.850 Personal history of malignant neoplasm of thyroid; Z79.01 Long term (current) use of 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; Z99.89 Dependence on other enabling machines and devices | CPT/HCPCS: 96127 ==

== ENCOUNTER 2024-10-14 12:04 | Outpatient (AMB) | payer BC, SELFPAY ==
--- NOTE | 2024-10-14 12:05 | MHC.OFFVIS ---
Vital Signs 10/14/24 12:06 Height 6 ft 3 in Weight 258 lb 9.636 oz BMI 32.3 BP 122/62 Blood Pressure Location Lt brachial Position Sitting Pulse 67 Pulse Source Pulse Oximeter Pulse Oximetry (%) 95 Oxygen Delivery Method Room Air Intake Visit Reasons: f/u thyroid cancer Intake Note: Patient present today for thyroid cancer office visit. Test Driller Required: No Accompanied by: Self / Same As Patient Allergies No Known Allergies [No Known Allergies*] Allergy (Verified 10/14/24 12:11) Medication List - Last Reconciled 10/14/24 by Belia Mosley MD alclometasone 0.05% 1 appl topical BID PRN allopurinol 100 mg PO DAILY 90 days atorvastatin 10 mg PO DAILY 90 days diltiazem HCl CD (Cardizem CD) 120 mg PO DAILY levothyroxine 137 mcg PO DAILY metoprolol succinate ER 50 mg PO DAILY niacin 500 mg PO DAILY nystatin 5 mL PO TID 7 days egsbz-[id number]-epa-fish oil 300-1,000 mg ([place]-3 Fish Oil) 1 cap PO DAILY potassium citrate ER 20 mEq (2 x 10 mEq (1,080 mg)) PO BID 90 days rivaroxaban 20 mg PO DAILY HPI Comments Details: 69 YO M with PMHx recent PE due to COVID-19 infection now on xarelto, who is seen in F/U for 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 Per notes tumor was invading the strap muscles with macroscopic extrathyroidal extension. There was also positive posterior margin. ASHER initial high-risk of recurrence, AJCC stage 2. (T3 B) , currently ASHER excellent response to therapy. History of PTC in detail Over 20 years ago: W as initially diagnosed with multinodular thyroid over 20 years ago at the [facility] in [place]. He states he had a R hemithyroidectomy due to a toxic nodule, and reports no cancer was identified. He has remained euthyroid off any thyroid hormone supplementation since that time. 2021: His PCP ordered a thyroid US in 2021 which revealed a 1.5 cm LMP thyroid nodule. He was subsequently referred to Endocrinology. 02/14/2022 he underwent FNA biopsy of his LMP 1.5 cm thyroid nodule with cytology Suspicious for malignancy (bethesda category V). 05/10/2022: He was referred for a completion thyroidectomy and underwent this 05/10/2022. 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 There was no lymphatic invasion, no angioinvasion and no perineural invasion. There was macroscopic extrathyroidal extension identified as the tumor was invading the strap muscles. There was also a positive posterior margin. Per my assessment this is AJCC stage II (T3 B), ASHER initial high-risk of recurrence. 08/21/2022: He received I131 treatment with 152 mCi 08/21/2022 via withdrawal method. Labs 08/19/2022 TSH 62.8, TG <0.4 and TGAB 185. Post-treatment WBS revealed foci of radioiodine uptake in the bilateral thyroid bed. There was also increased radiotracer uptake within multiple hepatic cysts in the right and left hepatic lobes that was thought to be passive diffusion. These appeared unchanged from a prior CT. 07/02/2022 with TSH <0.05, TG <0.1 and TGAB 368. 09/12/2023: TSH 0.07, free T4 1.22, TG 1.1, TG antibody 24 September 2023: Evaluated by Dr. Renetta Amaral at [facility],, in office neck ultrasound did not show any abnormal nodes or masses suspicious for tumor recurrence. She did comment that likely the bilateral thyroid tissue noted in the thyroid bed on uptake and scan was likely benign node since they do not show increased vascular flow expected for a thyroid remnant with thyroiditis or thyroid cancer recurrence. Per Dr. 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 (note: However when I reviewed his notes from [facility], they labeled him as ASHER low risk of recurrence in AJCC stage I, with no gross extrathyroidal extension and negative margins, this is incorrect per pathology given below) 024: TSH 0.64, free T4 1.13 Interval history 07/01/24: TSH 3.11, free T4 1.22, TG less than 0.1, TG antibody 18 07/01/2024: Levothyroxine increased from 125 to137 mcg daily 07/08/2024: Ultrasound of the head and neck showed bilateral normal-appearing lymph nodes 08/18/2024: TSH 0.85, free T4 1.27, TG by LC MS less than 0.4, TG antibody 12 Currently patient denies any symptoms of hyperthyroidism or hypothyroidism. He is on levothyroxine 137 mcg daily, good adherence, appropriate administration Denies any compressive symptoms but he does have a coughing sensation plus discomfort associated with the it that has been stable since surgery, no worsening symptoms. Physical exam General: sitting comfortably in no acute distress HEENT: normocephalic/atraumatic Neck: supple, symmetrical, Cardiac: normal heart sounds Pulm: normal breath sounds B/L, no added breath sounds Abd: not distended, no tenderness Extremities: no edema, no signs of myxedema Neuro: AAO x3, Speech: normal, no facial droop, moving all 4 extremities Laboratory Tests 04/26/20 06/26/21 08/27/21 08:05 15:42 14:57 TSH 2.16 3.97 1.67 Free T4 1.05 0.91 Thyroglobulin Thyroglobulin LC-MS/MS Thyroglobulin Antibody 12/19/21 07/02/22 07/02/22 13:17 08:35 08:35 TSH 2.11 0.05 L Free T4 1.05 1.93 H Thyroglobulin <0.1 L Thyroglobulin LC-MS/MS <0.4 Thyroglobulin Antibody 368 H 443 H 08/19/22 08/19/22 09/11/22 10:42 10:42 12:22 TSH 62.80 H 0.12 L Free T4 < 0.42 L 1.91 H Thyroglobulin 0.2 L Thyroglobulin LC-MS/MS <0.4 Thyroglobulin Antibody 185 H 245 H 11/12/22 05/01/23 07/02/23 15:29 14:46 14:06 TSH 0.01 L 0.02 L 0.01 L Free T4 1.51 1.28 1.59 Thyroglobulin Thyroglobulin LC-MS/MS <0.4 Thyroglobulin Antibody 34 H 08/13/23 10/31/23 11:05 10:14 TSH 0.02 L 0.64 Free T4 1.45 1.13 Thyroglobulin Thyroglobulin LC-MS/MS Thyroglobulin Antibody US head and neck non thyroid 07/08/24 Comparison: None Findings: Status post thyroidectomy. No residual thyroid tissue in the bed. Small morphologically normal bilateral cervical lymph nodes. Impression: 1. No residual thyroid tissue in the thyroidectomy bed. 2. Morphologically normal appearing bilateral cervical lymph nodes. CT ABDOMEN AND PELVIS WITHOUT CONTRAST 12/28/23 CLINICAL INFORMATION: Right flank pain COMPARISON: CT abdomen pelvis 01/07/2021. TECHNIQUE: Multidetector volumetric imaging was performed from the superior aspect of the liver through the pubic symphysis. Sagittal and coronal reformatted images were obtained on the technologist's workstation. This CT examination was performed using dose optimization techniques as appropriate, variously including the following: *Automated exposure control *Adjustment of mA and/or kV according to patient size (this includes techniques or standardized protocols for targeted exams where dose is matched to indication/reason for exam; i.e. extremities or head) *Use of iterative reconstruction technique DLP: 867 mGy-cm FINDINGS: LUNG BASES: Bilateral calcified pleural plaques. LIVER, GALLBLADDER, AND BILIARY TREE: Multiple rounded low density foci are again noted within the liver unchanged compared with 01/07/2021 most likely representing benign, simple cyst warranting no additional imaging follow-up on the basis of this examination. The gallbladder is unremarkable with no evidence of radiopaque gallstones, gallbladder wall thickening, or obvious pericholecystic inflammatory changes. PANCREAS: Unremarkable. SPLEEN: Unremarkable. ADRENAL GLANDS: Unremarkable. KIDNEYS AND URETERS: A 4 mm x 2 mm calculus is present in the right ureter at the level of S2-S3. Series 3 image 66) Moderate proximal right ureterectasis and moderate right hydronephrosis noted. Mild right perinephric inflammatory changes. No right perinephric fluid collections. Left renal calculi: 2 mm superior pole, 2 mm and 2 mm interpolar and 2 mm inferior pole calculi. No left-sided hydronephrosis or perinephric inflammatory changes. BLADDER: Moderate physiologic distention. GASTROINTESTINAL TRACT: The appendix is not visualized. No inflammatory changes are present adjacent to the cecum. Normal appearance of the terminal ileum. No free intraperitoneal fluid or gas collections. No small bowel dilatation. Normal appearance of the stomach and duodenum. ABDOMINAL WALL: No significant hernia is appreciated. LYMPH NODES: Normal. VASCULAR: Mild scattered calcific atherosclerosis PELVIC VISCERA: Unremarkable. OSSEOUS STRUCTURES: Multilevel chronic cervical lumbar spondylosis. No vertebral body compression deformities. CT/CT abdomen pelvis wo IV con IMPRESSION: 1. Single obstructing 4 mm x 2 mm calculus within the distal right ureter at the level of S2-S3 with associated moderate right-sided hydronephrosis and proximal right ureterectasis. 2. Multiple punctate nonobstructing calculi within the left kidney. No left-sided hydronephrosis. 3. 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 US THYROID 07/31/21 CLINICAL INFORMATION: Nontoxic goiter, unspecified COMPARISON: CT neck 09/03/2012. TECHNIQUE: Linear transducer grayscale and color Doppler examination with attention to the region of the thyroid. FINDINGS: SIZE: Measurements of the solitary left thyroid lobe and nodules are given in sagittal, anteroposterior and transverse dimensions respectively. Right Thyroid Lobe: Surgically absent. Left Thyroid Lobe: 5.5 x 1.9 x 2.6 cm, volume 14.2 mL. Parenchyma: The gland echotexture is heterogeneous. Thyroid vascularity is normal. Isthmus: Surgically absent. Estimated total number of nodules greater than or equal to 1 cm: 1. Car Mechanic nodules are described as follows: 1. Location: Left superior. Size: 0.6 x 0.5 x 0.6 cm, volume 0.08 mL. Nodule characteristics: Composition: Spongiform (0). Echogenicity: Anechoic (0). Shape: Not taller than wide (0). Margins: Smooth (0). Echogenic Foci: None (0). ACR TI-RADS total points: 0 ACR TI-RADS category: 1 2. Location: Left mid medial. Size: 1.5 x 1.4 x 1.3 cm, volume 1.34 mL. Nodule characteristics: Composition: Solid (2). Echogenicity: Very hypoechoic (3). Shape: Taller than wide (3). Margins: Smooth (0). Echogenic Foci: Punctate echogenic foci (3). ACR TI-RADS total points: 11 ACR TI-RADS category: 5 3. Location: Left inferior lateral. Size: 0.5 x 0.6 x 0.6 cm, volume 0.09 mL. Nodule characteristics: Composition: Solid (2). Echogenicity: Hyperechoic (1). Shape: Not taller than wide (0). Margins: Ill-defined (0). Echogenic Foci: Punctate echogenic foci (3). ACR TI-RADS total points: 6 ACR TI-RADS category: 4 NODES: There is a left level 3 lymph node present measuring approximately 1.2 x 0.4 x 0.6 cm in size which has smooth margins and normal fatty hilum without evidence of cortical thickening or lobulation. US/US thyroid IMPRESSION: Left mid thyroid 1.5 cm maximum dimension nodule with TI-RADS Category 5 for which fine-needle aspiration biopsy is recommended. [facility] Medical History (Updated 10/14/24 @ 12:41 by Belia Mosley MD) Hypothyroidism History of thyroid cancer PAF (paroxysmal atrial fibrillation) Hepatic cyst Thyroid cancer Arthritis Vitamin D deficiency Multinodular thyroid Thyroid enlargement Acute respiratory failure with hypoxia Bacteremia Left bundle branch block Paroxysmal atrial fibrillation Atrial fibrillation with rapid ventricular response Scoliosis Hip pain Polycystic liver disease Tubular adenoma of colon Hypertension Obstructive sleep apnea History of kidney stones Hypercholesterolemia Obesity GERD (gastroesophageal reflux disease) Surgical History History of appendectomy History of colonoscopy History of lithotripsy History of removal of cyst History of thyroidectomy Family History Father Medical history unknown Mother Medical history unknown Social History Household Members: None Housing: House Do you presently have visiting nurse or other home services: No Alcohol intake: never Comment: HX SCOLIOSIS, FALL OUTSIDE 2 MONTHS AGO. stopped 2021 Patient Tobacco Use Status: Never used Tobacco e-Cigarette/Vaping Use: Never Used Second Hand Smoke Exposure: No service: No Current occupational status: retired Cognitive needs: No Hearing needs: No Vision needs: Yes Physical Exam Vital Signs: Last Vital Signs Pulse 67 10/14/24 12:06 BP 122/62 10/14/24 12:06 Pulse Ox 95 10/14/24 12:06 Oxygen Delivery Method Room Air 10/14/24 12:06 BMI result Body Mass Index 32.3 Assessment & Plan Assessment & Plan (1) History of thyroid cancer: Code(s): Z85.850 - Personal history of malignant neoplasm of thyroid Category: Medical Plan: 69 YO M with PMHx recent PE due to COVID-19 infection now on xarelto, who is seen in F/U for 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 Per notes tumor was invading the strap muscles with macroscopic extrathyroidal extension. There was also positive posterior margin. ASHER initial high-risk of recurrence, AJCC stage 2. (T3 B) , currently ASHER excellent response to therapy He has had detectable thyroglobulin antibodies however apparently has a history of Luz's thyroiditis though I do not see any TPO antibodies in the chart. Thyroglobulin antibodies elevation gets explained with Luz's thyroiditis. Fortunately these have down trended and most recently aug 17 his thyroglobulin antibody level was 12 down from 368 back in 2021. His unstimulated thyroglobulin levels have been less than 0.4. This is all consistent with ASHER excellent response based on that detectable even though downtrending thyroglobulin antibody, however given history of Luz's thyroiditis I would disregard those. 08/18/2024: TSH 0.85, free T4 1.27, TG by LC MS less than 0.4, TG antibody 12. Ultrasound neck Jul 17 done was not concerning of any recurrence of disease. Given excellent response to therapy TSH goal of 0.5-2. Plan: -continue levothyroxine 137 mcg daily -check TSH, free T4, TG and TG antibody levels to be done prior to follow up in 1 year in September 2025 -ordered ultrasound of the neck from August 2025 to be done prior to next follow up -follow up in 1 year (2) Hypothyroidism: Code(s): E03.9 - Hypothyroidism, unspecified Category: Medical Qualifiers: Hypothyroidism type: postoperative Qualified Code(s): E89.0 - Postprocedural hypothyroidism Plan: 08/18/2024: TSH 0.85, free T4 1.27, TG by LC MS less than 0.4, TG antibody 12 Given excellent response to therapy TSH goal of 0.5-2. Plan: -continue levothyroxine 137 mcg daily -check TSH, free T4, prior to follow up in 1 year Plan see above Orders: Orders Thyroid Stimulating Hormone 08/29/25 Z85.850 - Personal history of malignant neoplasm of thyroid Free T4 (Free Thyroxine) 08/29/25 Z85.850 - Personal history of malignant neoplasm of thyroid Thyroglobulin Antibodies 08/29/25 Z85.850 - Personal history of malignant neoplasm of thyroid US soft tiss head and/or neck 08/29/25 Z85.850 - Personal history of malignant neoplasm of thyroid Thyroglobulin Tumor Marker 08/29/25 Z85.850 - Personal history of malignant neoplasm of thyroid Medications: Refilled levothyroxine 137 mcg PO DAILY 30 tabs 11RF Patient Instructions: Continue levothyroxine 137 mcg daily Do blood work in August 2025 Do ultrasound of thyroid in August 2025, someone will call you to schedule this Follow up in 1 year Coding Level of Care Code Est Pt Level 4 (67119) Complex EM visit Add On G2211 Diagnoses History of thyroid cancer Z85.850 Postoperative hypothyroidism E89.0 Hypothyroidism type: postoperative
[2024-10-14 12:06] VITALS: BP 122/62; PULSE 67; O2SAT 95; BMI 32.3
== END 2024-10-14 12:38 | disposition home or self-care (01) ==
LOC: HO.ENCR 12:04
PROVIDERS: PCP Internal Medicine; Visit Provider Student in an Organized Health Care Education/Training Program
DX: Z85.850 Personal history of malignant neoplasm of thyroid (principal); E89.0 Postprocedural hypothyroidism
CPT/HCPCS: 99214

== ENCOUNTER → 2024-10-14 12:04 | Outpatient (BNVA) | payer BC, SELFPAY | PROVIDERS: PCP Internal Medicine; Visit Provider Student in an Organized Health Care Education/Training Program ==

== ENCOUNTER 2024-11-01 14:13 | Outpatient (AMB) | payer BC, SELFPAY ==
--- NOTE | 2024-11-01 14:42 | A.OFFPC_ITS ---
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 Required: No Accompanied by: Self / Same As Patient Allergies No Known Allergies [No Known Allergies*] Allergy (Verified 11/01/24 15:01) Medication List - Last Reconciled 11/01/24 by Bhakti Reyes MD alclometasone 0.05% 1 appl topical BID PRN allopurinol 100 mg PO DAILY 90 days atorvastatin 10 mg PO DAILY 90 days diltiazem HCl CD (Cardizem CD) 120 mg PO DAILY levothyroxine 137 mcg PO DAILY metoprolol succinate ER 50 mg PO DAILY niacin 500 mg PO DAILY nystatin 5 mL PO TID 7 days higya-8z-qmw-epa-fish oil 300-1,[address] ([place] [address]-3 Fish Oil) 1 cap PO DAILY potassium citrate ER 20 mEq (2 x 10 mEq (1,080 mg)) PO BID 90 days rivaroxaban 20 mg PO DAILY Tobacco use date assessed: 09/30/24 Fall risk assessment: No Falls in past year Last assessed Fall Risk: 11/01/24 Dental Screening Dental Screen Date: 07/22/24 HPI painful mole-like lesion in the buttock area HPI Details mass in the perineal area for year now painful PFSH Medical History (Updated 11/01/24 @ 15:21 by Bhakti Reyes MD) Hypothyroidism History of thyroid cancer PAF (paroxysmal atrial fibrillation) Hepatic cyst Thyroid cancer Arthritis Vitamin D deficiency Multinodular thyroid Thyroid enlargement Acute respiratory failure with hypoxia Bacteremia Left bundle branch block Paroxysmal atrial fibrillation Atrial fibrillation with rapid ventricular response Scoliosis Hip pain Polycystic liver disease Tubular adenoma of colon Hypertension Obstructive sleep apnea History of kidney stones Hypercholesterolemia Obesity GERD (gastroesophageal reflux disease) Surgical History History of appendectomy History of colonoscopy History of lithotripsy History of removal of cyst History of thyroidectomy Family History Father Medical history unknown Mother Medical history unknown Social History Household Members: None Housing: House Do you presently have visiting nurse or other home services: No Alcohol intake: never Comment: HX SCOLIOSIS, FALL OUTSIDE 2 MONTHS AGO. stopped 2021 Patient Tobacco Use Status: Never used Tobacco e-Cigarette/Vaping Use: Never Used Second Hand Smoke Exposure: No service: No Current occupational status: retired Cognitive needs: No Hearing needs: No Vision needs: Yes Questionnaire Thrive Questionnaire Date Thrive assessed: 09/29/24 I am a: Patient What is your living situation today?: I have a steady place to live Within the past 12 months, did the food you bought not last and you didn't have the money to get more?: I choose not to answer this question Within the past 12 months, did you worry whether your food would run out before you got money to buy more?: I choose not to answer this question Do you have trouble paying for medicines?: I choose not to answer this question Do you have trouble getting transportation to medical appointments?: No Do you have trouble paying your heating and electricity bill?: I choose not to answer this question Do you have trouble taking care of your child, family member or friend?: I choose not to answer this question Do you have trouble with day-to-day activities such as bathing, preparing meals, shopping, managing finances, etc.?: No Are you currently unemployed and looking for a job?: No Are you interested in more education?: I choose not to answer this question Please select the resources that you would like help with: None Currently or been in a relationship where the following occur: I choose not to answer THRIVE Score: 0 SANNA-7 AMB Questionnaire SANNA-7 Date SANNA - 7 assessed: 09/30/24 Source: Developed by Drs. Billy Sage, Ani Portillo, Rony Alvarez and colleagues, with an educational raymond from [employer]. Physical exam (Primary Care) Vital Signs: Last Vital Signs Temp 97.1 F 11/01/24 14:56 Pulse 58 11/01/24 14:56 BP 138/68 11/01/24 14:56 Pulse Ox 98 11/01/24 14:56 Oxygen Delivery Method Room Air 11/01/24 14:56 BMI result Body Mass Index 32.5 Tobacco/Smoking Status: Tobacco use Status Tobacco use date assessed 09/30/24 11/01/24 14:42 Patient Tobacco Use Status Never used Tobacco 11/01/24 14:42 e-Cigarette/Vaping Use Never Used 11/01/24 14:42 Thrive Assessment: Date of Thrive Assessment Date Thrive assessed 09/29/24 11/01/24 14:42 Currently or been in a relationship where the following occur: I choose not to answer Const General: alert; No acute distress Eyes Conjunctivae: conjunctivae normal Resp Auscultation: clear to auscultation bilaterally Cardio Rate: regular rate Rhythm: regular rhythm GI Other: L perineal polypoid mass 1 cm noted mild erythema base Inspection: Yes normal to inspection Extrem General: Yes normal to inspection and No edema Coding Level of Care Code Est Pt Level 4 (42473) Diagnoses Skin tag L91.8 Assessment & Plan Assessment & Plan (1) Skin tag: Comment: L perineal area Code(s): L91.8 - Other hypertrophic disorders of the skin Category: Medical Plan History of Present Illness The patient is a 69-year-old male presenting with a painful skin tag. He has observed the skin tag for several years, noting that it has recently become painful, particularly when sitting for extended periods. The location of discomfort is reported on the left side. He expressed a desire for removal of the skin tag to alleviate discomfort and improve quality of life. Past medical history is notable for multiple chronic conditions including gastroesophageal reflux disease, hypercholesterolemia, nephrolithiasis, obstructive sleep apnea managed with CPAP, essential hypertension, a history of pulmonary embolism, impaired glucose tolerance, atrial fibrillation, hypothyroidism, and a history of thyroid cancer status post-thyroidectomy in September 2023. The patient was last seen in September 2024. Health Maintenance Social History Review of Systems - Dermatological: Reports painful skin tag. - Genitourinary: Denies new nephrolithiasis-related symptoms. - Respiratory: Denies changes related to obstructive sleep apnea. - General: Denies new symptoms related to existing chronic conditions. Physical Exam - Dermatological- Presence of a skin tag on the left side, reported to be painful by the patient. Results Plan I will arrange a referral for the removal of the painful skin tag by a Dermatology service, noting the patient's preference for a quicker appointment, possibly with [facility]. This decision is made based on the patient's report of significant discomfort. Current therapies and management for chronic medical conditions continue unchanged, with adequate medication supply confirmed. Patient was informed and verbally consented to the use of an ambient scribe for clinic note documentation during this visit. Discussion Notes I have discussed with the patient the necessity of referral to Dermatology for the excision of the painful skin tag due to its impact on his comfort and quality of life. The patient consents to the referral and expresses a preference to expedite the process through [facility]. We talked about the potential for faster scheduling and what steps would be taken to secure an appointment. I ensured that regular management of existing chronic conditions was affirmed, and the patient reports having adequate medication supplies. No new therapies were commenced outside of dermatological intervention. Patient Instructions - Await contact from referral service for dermatology consultation. - Monitor the skin tag for changes or increased discomfort. - Continue current medications as prescribed for chronic conditions. - Attend follow-up appointments as scheduled. - Report any new or worsening symptoms immediately. Orders: Referrals Dermatology Referral L91.8 - Other hypertrophic disorders of the skin
[2024-11-01 14:56] VITALS: BP 138/68; PULSE 58; TEMP 36.2; O2SAT 98; BMI 32.5
== END 2024-11-01 15:28 | disposition home or self-care (01) ==
LOC: HO.HMCH 14:14
PROVIDERS: PCP Internal Medicine; Visit Provider Internal Medicine
DX: L91.8 Other hypertrophic disorders of the skin (principal)

== ENCOUNTER → 2024-11-01 14:13 | Outpatient (BNVA) | payer BC, SELFPAY | PROVIDERS: PCP Internal Medicine; Visit Provider Internal Medicine ==

== ENCOUNTER 2024-12-02 14:57 | Outpatient (REF) | payer BC, SELFPAY ==
--- NOTE | ~2024-12-02 | US_ITS ---
EXAMINATION: US PELVIS LIMITED (BLADDER) CLINICAL INFORMATION: Right ureteral calculus. COMPARISON: CT December 02, 2024 TECHNIQUE: Grayscale and color Doppler imaging of the bladder. FINDINGS: BLADDER: 7 x 9 mm hyperechoic area is noted at the right ureterovesicular junction. Urine is documented flowing through the distal ureter. The ureteral jet into the bladder is attenuated compared to the left side. No other stones are identified. There is no bladder wall thickening. Mildly enlarged prostate is noted. US/US bladder IMPRESSION: 7 x 9 mm stone in the right UVJ attenuates but does not obstruct the right urine jet Electronically signed by: Ren Barillas MD 12/02/2024 06:03 PM EDT
--- OUTSIDE RECORDS SUMMARY | 2024-12-02 17:37 | XMS_ITS | Data Portability ---
Author Organization [place] - [facility], [facility] Address [address] [place] [address] Care Team Providers Care Supply Chain Manager Name Role Phone DEPARTMENT [facility] Primary Care Provi sia Assessment No assessment [...] By Organization Details Last Modified Time 03/15/2024 [id number] orthopedic surgery* - Reason for Order: Massage [...] Updated DateTime 03/15/2024 187.96 cm 32.1 kg/m2 091310.09 g Kimberly Iqbal [place] - [facility] 03/15/2024 12:19:08 Social History None recorded. Functional Status None recorded. Mental Status None recorded. Family History Nothing Reported. Medical History No medical history recorded. Past Encounters Encounter ID Performer Location Encounter Start Date Encounter Closed Date Diagnosis/Indication Diagnosis SNOMED-CT Code Diagnosis ICD10 Code Diagnosis Note [id number] [facility] [address] [place] [address] 03/15/2024 11:58:29 04/13/2024 12:39:18 Lumbar radiculopathy 890273649 M54.16 Health Concerns Section Related Observation LastModified by Organization Detai ls LastModified Time None Recorded Concern Status LastModified by Organization Details LastModified Time None Recorded Advance Directives Directive None Recorded Payers Insurance Date Sequence Insurance Name Policy Number Policy Blankenship Covered Member ID Blankenship Member ID Guarantor Name 04/13/2024 OPT - [place] [facility] ([facility]) Mario Nice [id number] Mario Nice Notes Date Note Type Note [...] will follow-up if needed in the future. [facility] [employer] [facility] speech recognition financial developer software was used to create portions of this document. An attempt at proofreading has been made to minimize errors. Please call for corrections. Danette Martinez PA-C [address], [place], [address], [facility] - [facility] 03/15/2024 14:01:00
== END 2024-12-02 14:58 | disposition home or self-care (01) ==
LOC: HO.US 14:57
PROVIDERS: PCP Internal Medicine; Visit Provider Urology
DX: N40.2 Nodular prostate without lower urinary tract symptoms (principal); N20.0 Calculus of kidney
CPT/HCPCS: 76857

== ENCOUNTER → 2024-12-02 14:59 | Outpatient (BNV) | payer BC, SELFPAY | PROVIDERS: PCP Internal Medicine; Visit Provider Radiology Diagnostic Radiology | DX: N20.1 Calculus of ureter (principal) | CPT/HCPCS: 76857 ==

== ENCOUNTER 2024-12-15 13:22 | Outpatient (AMB) | payer BC, SELFPAY ==
--- NOTE | 2024-12-15 13:44 | MHC.OFFVIS ---
Vital Signs 12/15/24 13:46 Height 6 ft 3 in Weight 257 lb 0.944 oz BMI 32.1 BP 110/70 Blood Pressure Location Lt brachial Position Sitting Pulse 72 Pulse Source Monitor Intake Visit Reasons: r/s x3 6 mth fu overdue Intake Note: 6 mth f/up Humane Agent Required: No Accompanied by: Self / Same As Patient Allergies No Known Allergies (No Known Allergies*) Allergy (Verified 11/01/24 15:01) Medication List - Last Reconciled 12/15/24 by Ashkan Rivera MD alclometasone 0.05% 1 appl topical BID PRN allopurinol 100 mg PO DAILY 90 days atorvastatin 10 mg PO DAILY 90 days diltiazem HCl CD (Cardizem CD) 120 mg PO DAILY levothyroxine 137 mcg PO DAILY metoprolol succinate ER 50 mg PO DAILY niacin 500 mg PO DAILY nystatin 5 mL PO TID 7 days asrfu-8w-uog-epa-fish oil 300-1,000 mg ([place]-3 Fish Oil) 1 cap PO DAILY potassium citrate ER 20 mEq (2 x 10 mEq (1,080 mg)) PO BID 90 days rivaroxaban 20 mg PO DAILY HPI Comments Details: 69-year-old gentleman here for follow-up. He was seen in February 2020 when he presented to us after admission at [facility]. He had chest pain and presented to [facility]. He underwent stress testing there which did not show any perfusion defect. His pain was reproducible and quite atypical. He has background of paroxysmal atrial flutter. He had rate-related left bundle-branch block when he had atrial fibrillation with rapid ventricular response. In sinus rhythm and when his heart rate is low the bundle-branch is not present. He is denying any chest pain or shortness of breath. No bleeding concerns. Blood pressure control is good. Taking medications regularly. 03/05/2023: He returns for follow-up. He has been experiencing some palpitations up to 2 times a day for the last 2 weeks. He is saying that this reminds him office AFib episodes previously. He has been taking medications regularly. No other complaints currently. EKG in the office is showing sinus rhythm. It appears he was admitted to [facility] in January 2023 when he was in AFib with RVR. He spontaneously converted to sinus rhythm in the hospital. 02/04/24: He is here for follow-up. He has been doing well. Occasionally he feels palpitations lasting for few seconds. Previously had Holter monitor which showed premature ventricular complexes. He is on diltiazem and metoprolol succinate. He is on rivaroxaban for anticoagulation. No bleeding concerns. Overall clinically stable. Blood pressure is well controlled. 12/15/2024: He is here for follow-up. His EKGs showing sinus rhythm with inferior Q-waves and poor R-wave progression. He is denying any chest pain or shortness of breath. His previous echocardiography has shown basal inferior hypokinesis. Taking anticoagulation regularly without any bleeding issues. Clinically otherwise stable and reporting no symptoms. [facility] Medical History Hypothyroidism History of thyroid cancer PAF (paroxysmal atrial fibrillation) Hepatic cyst Thyroid cancer Arthritis Vitamin D deficiency Multinodular thyroid Thyroid enlargement Acute respiratory failure with hypoxia Bacteremia Left bundle branch block Paroxysmal atrial fibrillation Atrial fibrillation with rapid ventricular response Scoliosis Hip pain Polycystic liver disease Tubular adenoma of colon Hypertension Obstructive sleep apnea History of kidney stones Hypercholesterolemia Obesity GERD (gastroesophageal reflux disease) Surgical History History of appendectomy History of colonoscopy History of lithotripsy History of removal of cyst History of thyroidectomy Family History Father Medical history unknown Mother Medical history unknown Social History Household Members: None Housing: House Do you presently have visiting nurse or other home services: No Alcohol intake: never Comment: HX SCOLIOSIS, FALL OUTSIDE 2 MONTHS AGO. stopped 2021 Patient Tobacco Use Status: Never used Tobacco e-Cigarette/Vaping Use: Never Used Second Hand Smoke Exposure: No service: No Current occupational status: retired Cognitive needs: No Hearing needs: No Vision needs: Yes Review of Systems Const Denies chills, Denies fatigue, Denies fever(s), Denies frequent falls, Denies weakness, Denies weight gain and Denies weight loss ENT Denies dizziness Card Denies chest pain, Denies leg edema, Denies lightheadedness, Denies palpitations, Denies dyspnea and Denies dyspnea on exertion Resp Denies cough, Denies dyspnea and Denies dyspnea on exertion GI Denies hematochezia Musc Denies abnormal gait, Denies muscle weakness, Denies numbness, Denies radiating pain into limb and Denies tingling Neuro Denies abnormal gait, Denies dizziness, Denies frequent falls, Denies numbness, Denies tingling and Denies weakness Endo Denies fatigue and Denies palpitations Physical Exam Vital Signs: Last Vital Signs Pulse 72 12/15/24 13:46 BP 110/70 12/15/24 13:46 BMI result Body Mass Index 32.1 GENERAL APPEARANCE: in no acute distress, pleasant. NECK: no carotid bruit, no jugular venous distention. SKIN: no suspicious lesions, warm and dry. HEART: no murmurs, regular rate and rhythm. LUNGS: clear to auscultation bilaterally. ABDOMEN: soft, nontender. EXTREMITIES: no edema. PERIPHERAL PULSES: equal. NEUROLOGIC: No gross deficits, AAO X 3 Office Procedures EKG Details: Normal sinus rhythm 72 beats per minute, normal axis, can not rule out inferior infarct, poor R-wave progression and can not rule out anterior infarct, QTC 462 milliseconds. 38200-[id number], Complete Assessment & Plan Assessment & Plan (1) Hypertension: Code(s): I10 - Essential (primary) hypertension Category: Medical Qualifiers: Hypertension type: essential hypertension Qualified Code(s): I10 - Essential (primary) hypertension (2) PAF (paroxysmal atrial fibrillation): Code(s): I48.0 - Paroxysmal atrial fibrillation Category: Medical Plan Pleasant 69 year gentleman who is here for follow-up. He has background history of paroxysmal atrial fibrillation. He is currently on rivaroxaban for anticoagulation. He is on diltiazem 120 mg and Toprol-XL 50 mg daily. He is clinically stable. His EKGs showing inferior Q-waves as well as poor R-wave progression. We will get echocardiography to rule out any significant wall motion abnormalities. If present we will pursue exercise stress testing on him. Thank you for allowing me to participate in the care of your patient. Please feel free to contact me if you have any questions. Orders: Orders CA echo transthorac w con Today I48.0 - Paroxysmal atrial fibrillation Coding Level of Care Code Est Pt Level 4 (97702) Complex EM visit Add On G2211 Diagnoses Essential hypertension I10 Hypertension type: essential hypertension PAF (paroxysmal atrial fibrillation) I48.0 CPT Codes EKG - CPT: 44994-Hroswksxkdyjofmrf, Complete ([id number])
[2024-12-15 13:46] VITALS: BP 110/70; PULSE 72; BMI 32.1
--- OUTSIDE RECORDS SUMMARY | 2024-12-15 15:45 | XMS_ITS | Data Portability ---
Author Organization [facility], [facility] Address [address] [place] [address] Care Team Providers Care Store Management Trainee Name Role Phone DEPARTMENT [facility] Primary Care Provi sia Assessment [...] By Organization Details Last Modified Time 03/15/2024 [id number] orthopedic surgery* - Reason for Order: Massage [...] Updated DateTime 03/15/2024 187.96 cm 32.1 kg/m2 040319.09 g Kimberly Iqbal [place] - [facility] 03/15/2024 12:19:08 Social History None recorded. Functional Status None recorded. Mental Status None recorded. Family History Nothing Reported. Medical History No medical history recorded. Past Encounters Encounter ID Performer Location Encounter Start Date Encounter Closed Date Diagnosis/Indication Diagnosis SNOMED-CT Code Diagnosis ICD10 Code Diagnosis Note [id number] JO[facility]O Thompson [address] [place] [address] 03/15/2024 11:58:29 04/13/2024 12:39:18 Lumbar radiculopathy [id number] M54.16 Health Concerns Section Related Observation LastModified by Organization Detai ls LastModified Time None Recorded Concern Status LastModified by Organization Details LastModified Time None Recorded Advance Directives Directive None Recorded Payers Insurance Date Sequence Insurance Name Policy Number Policy Blankenship Covered Member ID Blankenship Member ID Guarantor Name 04/13/2024 OPT - [place] [facility] ([facility]) Mario Nice [id number] Mario Nice Notes Date Note Type Note [...] the affected side. Strength and sensation intact. Re exes normal. No ankle clonus. MRI lumbar spine [...] will follow-up if needed in the future. [facility] speech recognition director of retail operations software was used to create portions of this document. An attempt at proofreading has been made to minimize errors. Please call for corrections. Danette Martinez PA-C [address], [place], [address], [facility] - [facility] 03/15/2024 14:01:00
== END 2024-12-15 14:19 | disposition home or self-care (01) ==
LOC: HO.HCS 13:22
PROVIDERS: PCP Internal Medicine; Visit Provider Internal Medicine Cardiovascular Disease
DX: I10 Essential (primary) hypertension (principal); I48.0 Paroxysmal atrial fibrillation
CPT/HCPCS: 93010; 99214

== ENCOUNTER → 2024-12-15 13:22 | Outpatient (BNVA) | payer BC, SELFPAY | PROVIDERS: PCP Internal Medicine; Visit Provider Internal Medicine Cardiovascular Disease | DX: I48.0 Paroxysmal atrial fibrillation (principal) | CPT/HCPCS: 93005 ==

== ENCOUNTER 2024-12-23 09:32 | Outpatient (AMB) | payer BC, SELFPAY ==
--- OUTSIDE RECORDS SUMMARY | 2024-07-19 09:00 | XMS_ITS | Encounter Summary ---
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 Name Role Phone KRAIG HALL Primary Care Provider Unavail able Insurance Providers: All historical and current Section [...] CT FEDERAL PREFERRED PROVIDER ORGANIZAT ION (PPO) PSHB BASIC FAMIL Y Jun 23, 2024 [id number] [id number] [phone] ABHILASH GARAY PATIENT ANTHEM BCBS [place] PREFERRED PROVIDER ORGANIZAT ION (PPO) USPS BASIC SELF+ FAM Jun 23, 2024 33B [id number] [phone] ABHILASH GARAY PATIENT [place] PREFERRED PROVIDER ORGANIZAT ION (PPO) FEP BASIC FAM Jun 24, 2009 [id number] [phone] ABHILASH GARAY PATIENT ANTHEM BCBS [place] FEP PREFERRED PROVIDER ORGANIZAT ION (PPO) USPS BASIC SELF+ FAM Jun 23, 2024 33B [id number] [phone] ABHILASH GARAY PATIENT [place] F[place] PREFERRED PROVIDER ORGANIZAT ION (PPO) USPS BASIC SELF+ FAM Jun 23, 2024 33B [id number] [phone] ABHILASH GARAY PATIENT BCBS [place] F[place] PREFERRED PROVIDER ORGANIZAT ION (PPO) PSHB BASIC FAMIL Y Jun 23, 2024 [id number] [phone] ABHILASH GARAY PATIENT BCBS OF [place] FEP PREFERRED PROVIDER ORGANIZAT ION (PPO) PSHB BASIC FAM HDHP Jun 23, 2024 33B [id number] ABHILASH GARAY PATIENT [place] PREFERRED PROVIDER ORGANIZAT ION (PPO) PSHB BASIC SELF Jun 23, 2024 33B [id number] ABHILASH GARAY PATIENT [place] F[place] DENTAL DENTAL INSURANCE BASIC Jul 12, 2009 [id number] DEJAHDANIKARUBI ACEVESNETH PATIENT [place] F[place] HIGH DEDUCTIBL E HEALTH PLAN PSHB BASIC FAM HDHP Jun 23, 2024 [id number] [phone] RUBI GARAYNETH PATIENT [place] FEP ([id number]) PRESCRIPT ION FEPRX Jun 24, 2009 [id number] [phone] ABHILASH GARAY PATIENT [place] FEP BCBS PRESCRIPT ION CAREM ARK FEPRX PLAN Nov 21, 2021 [id number] DEJAHENRIQUE ABHILASH PATIENT MEDICARE (WN) MEDICARE () PART A Feb 22, 2020 PART A [id number] RUBI GARAYNETH PATIENT MEDICARE (WNR) MEDICARE () PART A Feb 22, 2020 PART A [id number] DEJAHDANIKARUBI ACEVESNETH PATIENT MEDICARE (WNR) MEDICARE () PART A Feb 22, 2020 PART A [id number] RUBI GARAYNETH PATIENT MEDICARE (WNR) MEDICARE () PART A Feb 22, 2020 PART A [id number] [phone] ABHILASH GARAY PATIENT MEDICARE (WNR) MEDICARE (M) PART A Feb 22, 2020 PART A [id number] ABHILASH GARAY PATIENT Selected Encounter This section includes the information on record at [place] for the Encounter. Date/Time Encounter Type Encounter Description Reason Provider Source Jul 19, 2024 01:00 PM SELF CARE MNGMENT TRAINING PHYSICAL THERAPY ICD-10-CM L91.0 Hypertrophic scar EMILIAJULITAJESSICA Arellano IHFran Encounter Template Text not used by [place] Assessments - Encounter Diagnoses This section includes the primary and secondary diagnoses documented for the Encounter. Date/Time Primary/Secondary Diagnosis Diagnosis Name Provider Source Aug 03, 2024 05:09 PM PRIMARY Hypertrophic scar YULIACARLOS Plan of Treatment: Future Appointments (+ 6 [...] Appointment Type Appointme nt Facility Name Jul 23, 2024 01:30 PM [place] [facility] [place] [facility] Aug 04, 2024 10:00 AM [place]UL[place] [facility] [place] [facility] Aug 11, 2024 02:00 PM AMBULATORY - [facility] Aug 18, 2024 02:40 PM [place] [facility] [place] [facility] Aug 19, 2024 01:00 PM [place] [facility] [place] [facility] Aug 25, 2024 10:30 AM [place] [facility] [place] [facility] Aug 26, 2024 01:00 PM [place] [facility] [place] [facility] Aug 30, 2024 11:00 AM AM[place]UL[place] [facility] [place] [facility] Sep 06, 2024 11:00 AM AM[place]UL[place]ORY [place] [facility] [place] [facility] Sep 09, 2024 01:00 PM [place] [facility] [place] [facility] Sep 14, 2024 11:00 AM AMBULATORY [place] [facility] [place] [facility] Sep 16, 2024 01:00 PM AMBULATORY [place] [facility] [place] [facility] Sep 20, 2024 11:00 AM AMBULATORY [place] [facility] [place] [facility] Sep 21, 2024 01:30 [facility]24 01[facility]00 PM [facility] - [place] [place] [facility] [place] [facility] Oct 04, 2024 11:00 AM AMBULATORY - [place] [facility] [place] [facility] Oct 11, 2024 11:00 AM AMBULATORY - [place] [facility] [place] [facility] Oct 18, 2024 11:00 AM AMBULATORY [place] [facility] [place] [facility] October 25, 2024 11:00 AM AMBULATORY - [place] [facility] [place] [facility] October 28, 2024 01:00 PM AMBULATORY - [place]INE [place] [facility] [place] [facility] Social History: Smoking Status (Most current) and [...] Odalis casey Apr 06, 2024 10:30 AM [place]-TOBACCO NEVER USED [facility] Tobacco Use History This section includes a history of the smoking, or tobacco-related health factors, that were collected on or before the date of the Encounter. The data comes from the [place] facility where the Encounter took place. Date/Time Smoking Status/Tobacco Use Comment F acility Aug 18, 2020 10:00 AM [place]-TOBACCO NEVER USED [facility] Dec 15, 2018 12:14 PM [place]-TOBACCO NEVER USED [facility] Jun 11, 2017 04:15 PM LIFETIME NON-TOBACCO USER [facility] Jan 01, 2016 11:12 AM LIFETIME NON-TOBACCO USER [facility] Jan 16, 2005 08:54 AM LIFETIME NON-SMOKER [facility] Nov 29, 2003 08:05 AM LIFETIME NON-SMOKER [facility] Jan 07, 2001 08:33 AM LIFETIME NON-SMOKER [facility] Encounter Notes: All associated encounter notes This section contains the clinical notes associated to the Encounter. 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 Patient states they had a thyroidectomy about 2-3yrs ago removing the other rest of their thyroid at [facility] due to thyroid cancer. Notes that over time, they have begun to notice a dry cough most mornings and limited range of motion in the neck. Patient denies issues with speech and swallowing after this surgery. Patient denies pain in the area, just tightness. Patient denies other major trauma or past surgical procedures to the neck. Pain current 0/10 Pain worst 2-3/10 Pain best 0/10 Current exercise routine: chair yoga, some old PT exericses Work: Retired, [employer] for 28 years Patient Goal: loosen up scar tissue and try to improve their range of motion in their neck Number of days per week with pain: 12/27 SANE report Please rate your ability to use your injured area on a 0% to 100% scale, with 0% being unable to use the injured area and 100% being normal use of injured area in your daily activity: OBJECTIVE: Red flags: Recent Trauma- Age (50+)+ Hx of Cancer- Fever/chills/night sweats- Unexplained weight loss- Recent infection- Immunosuppression - Night pain- Saddle anesthesia- Bowel/bladder dysfunction - LE neurological deficit- Psychosocial flags: mental health dx- entrenched/unhelpful beliefs about pain- clinically relevant catastrophization- signs of kinesiophobia- Neuro: UE Neuro Screen: (R) (L) Reflexes: (0, 1, 2, 3, 4) C7 Triceps 2 2 C6 BR 2 2 C5 Biceps 2 2 Myotomes: See MMT Dermatomes: (N=Normal, I=Impaired) C5 Radial N N C6 Thumb N N C7 Middle N N C8 Pinkie N N T1 Ulnar N N Tinels Sign: (+,-) Cubital fossa - - Gyons canal - - Carpal tunnel - - ULTT+ (+,-) Median nerve - - Ulnar nerve - - Radial nerve - - According to Pratik et al,[18] selected combinations of the following clinical findings are effective in ruling out and ruling in cervical spine myelopathy. Combinations of three of five or four of five of these tests enable post-test probability of the condition to 9499%: NEGATIVE 1. Gait deviation 2. Hoffmanns test 3. Inverted supinator sign 4. Babinski sign 5. Age 45 years or older * = pain during testing Cervical ROM Flexion(60-90): 40* Extension: 45* Right SB: 20 Left SB: 10 Right Rotation: 45 Left Rotation: 45 Cervical Strength:(_/5) Flexion: 5* Extension: 5 Right SB: 5 Left SB: 5 Right Rotation: 5 Left Rotation: 5 Deep neck flexor endurance test Normal Values: Men: 38.9 seconds, Women: 29.4 seconds SCORE: 15s Shoulder Strength: 5/5 throughout BUE no evidence of myotomal weakness Cervical Special Tests Right Left Spurlings compression (-) (-) (Sn .50 Sp .90) Distraction (-) (-) (Sn .44 Sp .90) Sharps-Jonnathan (-) (-) (Sn .69 Sp .96) Alar ligament test (-) (-) Clinical prediction rule (-) (-) 3 positive signs = Sn .39 Sp .94 for radiculopathy Less 60 deg cervical rotation to involved side Positive ULTT A Positive distraction Positive Spurlings test Shoulder Special Tests: Right Left Hawking's Brian (-) (-) Neer (-) (-) Empty can (-) (-) Lateral Naman (-) (-) Passive distraction (SLAP) (-) (-) Passive compression (SLAP) (-) (-) Modified dynamic labral shear (-) (-) Apprehension/Relocation (bankart) (-) (-) Palpation: fairly pliable scar along the anterior surface of the neck; some mild restriction centrally in the scar Joint mobility: Interventions: Therapeutic Exercise: Mins: Manual therapy: Mins: Neuro re-ed: Mins: Other: Mins: Modalities: Mins: [] contraindication screen completed prior to modality [] skin intact pre/post modality Access Code: [email or web address] URL: [email or web address] Date: 07/19/2024 Prepared by: Carlos Medrano Exercises - Seated Cervical Sidebending Stretch - 1-2 x daily - 7 x weekly - 3 sets - 30 hold - Seated Levator Scapulae Stretch - 1-2 x daily - 7 x weekly - 3 sets - 30 hold - Sternocleidomastoid Stretch - 1-2 x daily - 7 x weekly - 3 sets - 30 hold - Single Arm Doorway Pec Stretch at 90 Degrees Abduction - 1-2 x daily - 7 x weekly - 3 sets - 30 hold - Seated Cervical Retraction - 1-2 x daily - 7 x weekly - 2 sets - 10-15 reps - 2-3 hold - Seated Scapular Retraction - 1 x daily - 7 x weekly - 2 sets - 10-15 reps - 2-3 hold Patient Education - Scar Massage Patient education: Mins: 15 Discussed potential etiology [...] clinic. Provided verbal instruction and demonstration for cross friction massage for scar during visit today with patient able to demonstrate good return performance. ASSESSMENT: Patient is a 69yo seen for physical therapy evaluation following referral for Hypertrophic Scar(ICD-10-CM L91.0). PMH significant for: Primary malignant neoplasm of skin History of malignant neoplasm of th GLENN - Obstructive sleep apnea Atrial fibrillation Paresthesia Restless legs syndrome History of pulmonary embolus Kidney stone Benign essential hypertension Hyperlipidemia Onychomycosis of toenails Low back pain Scoliosis Gastroesophageal reflux disease Thyroid nodule Gastroesophageal reflux disease Tinea Pedis Ulcer of other part of Foot Cellulitis and abscess of foot, exc Osteoarthritis Dermatitis or Eczema Color Blindness Colorectal Cancer Screening Results LIVER CYST Back Strain Kidney Stones Scoliosis Patient presents with primary complaint of chronic anterior neck stiffness and tightness, and soreness with hx of partial thyroidectoy 20yrs ago, and reamining thyroid removed 2-3yrs ago at [facility]. Pain rated 0/10 at current, best, 2-3/10 at worst on NPRS. Primary aggravating factors include moving their neck. On physical assessment, patient primary symptoms reproduced with cervical flexion/extension ROM, cervical flexion MMT, palpation of the scar. Additional impairments that may contribute to condition include impaired cervical ROM, impaired DNF strength. Scar mobility appears fairly normal with assessment today with slightly tight band along the front of the neck near the roni's apple. Today, provided isntruction through CFM with patient demonstrating good return performance. Also provided verbal instruction, demosntration, and written instruction for flexibility exercises for carryover at home. Patient reports these symptoms impact their ability to complete their normal daily tasks like moving their neck. Patient requires skilled physical therapy services in order to address these impairments ad activity limitations and to achieve patient goal of loosen up scar tissue and try to improve their range of motion in their neck . GOALS: in 4-6weeks, patient will demonstrate: consistent carryover of HEP 5/7 days per week with patient able to independently teach back 75% of exercises 2pt decrease in pain level at worst to improve patient ability to complete most symptomatic tasks decrease in total days with pain by 2 days to improve patient QOL 10deg improvement in cervical flexion ROM 10deg improvement in cervical extension ROM 10s improvement in DNF strength PLAN: Discussed POC with patient who verbalizes agreement with skilled PT services focusing on improving cervical ROM, improving cervical flexibility, progressive DNF and periscapular strengthening, HEP teaching and progression follow up in 3 weeks to reassess []Low impact cardio: []Nustep []Recumbent bike []Recumbent elliptical []TM []Manual: []STM/DTM []METs/SCS []IASTM []Joint mobilizations []Therex: []Progressive UQ []Progressive Core []Progressive LQ []UQ flex [] Lumbar flex []LQ flex []Foam rolling []Proprioception []Neuro Re-education: []Static []Dynamic []Dual-Task []Education: []Posture []Ergonomics []Bodymechanics []Self-care strategies []PNE []Modalities(PRN): []Heat/Ice []Estim/Tens []Mechanical traction []K-tape [] Biofreeze /es/ CARLOS MEDRANO PT, DPT PHYSICAL THERAPIST Signed: 07/19/2024 13:57 CARLOS MEDRANO [facility]
--- NOTE | 2024-12-23 09:35 | A.OFFVIS_ITS ---
Intake Visit Reasons: prostate nodule discussion Intake Note: Patient is present for prostate nodule follow up imaging done :12/02/24 Urology Med: Allopurinol Antibiotic Allergy: None Blood Thinner: none Patient Symptoms: Patient denies any symptoms Proposal Engineer Required: No Accompanied by: Self / Same As Patient Allergies No Known Allergies (No Known Allergies*) Allergy (Verified 12/23/24 09:36) HPI Comments Details: Carlos is a pleasant male. He is a patient of Dr. Reyes. He is seen for following urologic issues - renal stones - prostate nodule Six-month follow-up Question prostate nodule On exam has bilateral firm ridges on his prostate but no discrete nodule Check PSA in six-month Prostate Nodule PSA 07/17 2.7 Nephrolithiasis Current consultation for further evaluation of nephrolithiasis Imaging - 01/10 CT scan with left distal stone, bilateral scattered stones maximum 3 mm on right - 05/13 renal ultrasound bilateral 3 mm stone - 12/12 renal ultrasound 4 mm left stone - 06/13 renal ultrasound 3 mm bilateral stone - 06/14 renal ultrasound bilateral 4-5 mm stones to each side. - 01/13 CT bilateral 2 mm stones each side - 4 mm proximal right with mild hydroureteronephrosis, creatinine 1.0 - 06/15 renal ultrasound 3 mm right Renal intervention - 02/10 left ureteroscopy laser lithotripsy stent placement Stone analysis - prior calcium oxalate Therapy - fluid intake - 2 times a day 20 mEq citrate PFSH Medical History Hypothyroidism History of thyroid cancer PAF (paroxysmal atrial fibrillation) Hepatic cyst Thyroid cancer Arthritis Vitamin D deficiency Multinodular thyroid Thyroid enlargement Acute respiratory failure with hypoxia Bacteremia Left bundle branch block Paroxysmal atrial fibrillation Atrial fibrillation with rapid ventricular response Scoliosis Hip pain Polycystic liver disease Tubular adenoma of colon Hypertension Obstructive sleep apnea History of kidney stones Hypercholesterolemia Obesity GERD (gastroesophageal reflux disease) Surgical History History of appendectomy History of colonoscopy History of lithotripsy History of removal of cyst History of thyroidectomy Family History Father Medical history unknown Mother Medical history unknown Social History Household Members: None Housing: House Do you presently have visiting nurse or other home services: No Alcohol intake: never Comment: HX SCOLIOSIS, FALL OUTSIDE 2 MONTHS AGO. stopped 2021 Patient Tobacco Use Status: Never used Tobacco e-Cigarette/Vaping Use: Never Used Second Hand Smoke Exposure: No service: No Current occupational status: retired Cognitive needs: No Hearing needs: No Vision needs: Yes Review of Systems Const Denies chills and Denies fever(s) Card Reports no additional complaints and Denies syncope Resp Denies cough GI Denies abdominal pain and Denies heartburn Reports as per HPI and Denies change in libido Neuro Denies syncope Psych Denies change in libido Endo Denies change in libido Physical Exam Const General: cooperative, healthy appearing, comfortable and no acute distress Orientation/consciousness: patient oriented x3 HEENT Face and sinus: Yes normal facial exam Mouth: moist mucous membranes Neck Neck: Yes normal visual inspection, Yes full ROM and Yes trachea midline Chest Chest palpation & inspection: normal inspection of the chest Resp Effort & Inspection: normal respiratory effort, able to speak in complete sentences and no respiratory distress GI Inspection: Yes normal to inspection Rectal Exam - Male: Yes normal sphincter tone and Yes prostate normal Male General Exam: Yes normal external exam Penis: normal penis and circumcised Meatus: meatus normal Scrotum: scrotum normal Testes: Testes normal Back/Spine/Pelvis Cervical Spine: normal cervical lordosis Thoracic/Lumbar Spine: thoracic and lumbar spine normal to inspection Skin General skin exam: no rashes or lesions noted Neuro General: patient oriented x3, gait normal, tone normal and moves all extremities Extrem General: Yes normal to inspection and Yes capillary refill normal Assessment & Plan Assessment & Plan (1) Nephrolithiasis: Code(s): N20.0 - Calculus of kidney Category: Medical (2) Prostate nodule: Code(s): N40.2 - Nodular prostate without lower urinary tract symptoms Category: Medical Plan June follow-up for stone review Orders: Orders Prostate Specific Antigen 6 Months N40.2 - Nodular prostate without lower urinary tract symptoms Patient Instructions: This note is constructed using voice recognition software. While every effort has been made to ensure accuracy bombsight specialist errors may have been included. Imaging studies, laboratory and physical exam results were discussed and reviewed in detail. No major barriers to patient understanding were identified. An opportunity to ask questions regarding the treatment plan was provided. All questions were answered. The patient expressed understanding and agreement with the above treatment plan. The patient is aware they should contact our office by phone for worsening of their current condition or the appearance of new urologic symptoms. Compliance is encouraged with any medications and followup testing that is ordered. It is a privilege to participate in the urologic care of your patient. If you have any questions or concerns regarding treatment for the above conditions, or other urologic issues, please do not hesitate to contact me. The office telephone contact is [phone]. Sincerely, Dr Derek Darden MD, [facility] - Urology Compassionate Specialist Care for the Genitourinary System Coding Level of Care Code Est Pt Level 3 (33078) Complex EM visit Add On G2211 Diagnoses Nephrolithiasis N20.0 Prostate nodule N40.2
--- OUTSIDE RECORDS SUMMARY | 2024-12-23 09:55 | XMS_ITS | Data Portability ---
Author Organization [facility], [facility] Address [address] [place] [address] Care Team Providers Care Production Lapping Machine Operator Name Role Phone DEPARTMENT [facility] Primary Care Provi sia Assessment No assessment [...] By Organization Details Last Modified Time 03/15/2024 [id number] orthopedic surgery* - Reason for Order: Massage [...] Updated DateTime 03/15/2024 187.96 cm 32.1 kg/m2 006299.09 g Kimberly Iqbal [place] - [facility] 03/15/2024 12:19:08 Social History None recorded. Functional Status None recorded. Mental Status None recorded. Family History Nothing Reported. Medical History No medical history recorded. Past Encounters Encounter ID Performer Location Encounter Start Date Encounter Closed Date Diagnosis/Indication Diagnosis SNOMED-CT Code Diagnosis ICD10 Code Diagnosis Note [id number] [facility] Thompson [address] [place] [address] 03/15/2024 11:58:29 04/13/2024 12:39:18 Lumbar radiculopathy [id number] M54.16 Health Concerns Section Related Observation LastModified by Organization Detai ls LastModified Time None Recorded Concern Status LastModified by Organization Details LastModified Time None Recorded Advance Directives Directive None Recorded Payers Insurance Date Sequence Insurance Name Policy Number Policy Blankenship Covered Member ID Blankenship Member ID Guarantor Name 04/13/2024 OPT - [place] [facility] ([facility]) Mario Nice [id number] Mario Nice Notes Date Note Type Note [...] will follow-up if needed in the future. [facility] speech recognition frame catcher software was used to create portions of this document. An attempt at proofreading has been made to minimize errors. Please call for corrections. Danette Martinez PA-C [address], [place], [address], [facility] - [facility] 03/15/2024 14:01:00
--- OUTSIDE RECORDS SUMMARY | 2024-12-23 09:56 | XMS_ITS ---
Author Name [facility] Organization Unknown Care Team Organization Name Specialty Phone Email Start Date End Da te [facility] 01/23 [facility] 01/22
== END 2024-12-23 10:07 | disposition home or self-care (01) ==
LOC: HO.HUSH 09:33
PROVIDERS: PCP Internal Medicine; Visit Provider Urology
DX: N20.0 Calculus of kidney (principal); N40.2 Nodular prostate without lower urinary tract symptoms
CPT/HCPCS: 99213

== ENCOUNTER 2025-01-11 08:40 | Outpatient (REF) | payer BC, SELFPAY ==
--- OUTSIDE RECORDS SUMMARY | 2025-01-11 08:58 | XMS_ITS | Data Portability ---
Author Organization [facility], [facility] Address [address] [place] [address] Care Team Providers Care Middle School Principal Name Role Phone DEPARTMENT [facility] [...] By Organization Details Last Modified Time 03/15/2024 [id number] orthopedic surgery* - Reason for Order: Massage [...] Updated DateTime 03/15/2024 187.96 cm 32.1 kg/m2 375696.09 g Kimberly Iqbal [place] - [facility] 03/15/2024 12:19:08 Social History None recorded. Functional Status None recorded. Mental Status None recorded. Family History Nothing Reported. Medical History No medical history recorded. Past Encounters Encounter ID Performer Location Encounter Start Date Encounter Closed Date Diagnosis/Indication Diagnosis SNOMED-CT Code Diagnosis ICD10 Code Diagnosis Note [id number] JO[facility]O Thompson [address] [place] [address] 03/15/2024 11:58:29 04/13/2024 12:39:18 Lumbar radiculopathy [id number] M54.16 Health Concerns Section Related Observation LastModified by Organization Detai ls LastModified Time None Recorded Concern Status LastModified by Organization Details LastModified Time None Recorded Advance Directives Directive None Recorded Payers Insurance Date Sequence Insurance Name Policy Number Policy Blankenship Covered Member ID Blankenship Member ID Guarantor Name 04/13/2024 OPT - [place] [facility] ([facility]) Mario Nice [id number] Mario Nice Notes Date Note Type Note [...] will follow-up if needed in the future. [facility] speech recognition car restorer software was used to create portions of this document. An attempt at proofreading has been made to minimize errors. Please call for corrections. Danette Martinez PA-C [address], [place], [address], [facility] - [facility] 03/15/2024 14:01:00
--- OUTSIDE RECORDS SUMMARY | 2025-01-11 08:58 | XMS_ITS ---
Author Name Manjinder Lopez Address Unknown Organization [facility] Providers Care Supervisor [employer] Name Role Phone Unavailable Primary Care Physician Unavailab le History Of Present Illness No Data Medications Medication Generic Name RxNorm Strength Strength Unit Route Dose Dose Form Frequency Date Started Date Ended Status Indication Sig betamethaso ne dipropionat e betameth asone dipropio bennett 243943 0.05 % Topica l lotio n 07/19/19 25 suspend ed Appl y Am and PM scal p itch as need ed betamethaso ne valerate betameth asone valerate 294102 0.1 % Topica l apply thin layer to skin lotio n as needed 07/20/19 25 active Appl y AM and PM scal p for itch ciclopirox ciclopir ox 313229 0.77 % Topica l cream Bid 09/07/19 20 suspend ed Appl y AM and PM to bonifacio a butt ocks for 4 week s ciclopirox ciclopir ox 787133 0.77 % Topica l cream BID 03/23/20 21 suspend ed Appl y AM and PM to tops , side s, gulshan om of feet , betw een toes for 4 week s. clobetasol clobetas ol 235955 0.05 % Topica l cream BID 05/19/20 19 suspend ed ECZEMA APPL Y AM AND PM ECZE MA BACK AND BUTT OCKS FOR UP TO 2 WEEK S WHEN NEED ED fluocinonid e fluocino nide 070421 0.05 % Topica l apply thin layer to skin solut ion as needed 05/18/20 24 active Appl y 5-10 drop s AM and PM scal p and mass age in halobetasol propionate halobeta jaiden propiona te 778233 0.05 % Topica l cream BID 08/31/19 23 suspend ed Appl y AM and PM ecze ma left hand and foot for 2 week s when need ed. Neve r use face groi n or unde rarm s ketoconazol e ketocona zole 295197 2 % Topica l cream 04/04/20 22 suspend ed Tinea Appl y AM and PM to top, side , gulshan om of left foot and betw een toes for 4 week s ketoconazol e ketocona zole 472951 2 % Topica l apply small amoun t to hair shamp oo When Shampooing 12/29/19 24 active Appl y to damp hair , lath er leav e in 5 ana amrik and rins e out. Use when sham pooi ng mupirocin mupiroci n 552475 2 % Topica l ointm ent 03/24/20 24 suspend ed Appl y AM and PM righ t rivka k for 10 days chanel t/sc ab Sernivo betameth asone dipropio bennett 4294163 0.05 % Topica l spray with pump 05/28/20 21 suspend ed Appl y AM and PM scal p and mass age in atorvastati n atorvast atin 10 mg Oral 1 table t daily active Fish Oil omega-3 fatty acids-vi tamin E Oral active griseofulvi n microsize griseofu lvin microsiz e 648737 500 mg Oral table t QD 10/07/19 21 suspend ed Tinea Take one PO QD with food and milk hydroxyzine HCl hydroxyz ine HCl 668605 10 mg Oral table t QHS 07/19/19 25 active Take one pill po at supp er and if need ed bedt lavonne prn itch . Do not driv e or oper ate heav y mach iner y levothyroxi ne levothyr oxine 137 mcg Oral 1 table t daily active lutein lutein Oral active PreserVisio n AREDS vitamins A,C,E-zi nc-coppe r 14,320-22 6-200 unit-mg-u nit Oral capsu le active Xarelto rivaroxa ban Oral active DermOtic Oil fluocino lone acetonid e oil 5405671 0.01 % Otic (ear) drops BID 08/22/19 21 suspend ed Eczema Appl y 2-4 drop s righ t ear for 2 week s clobetasol clobetas ol 675425 0.05 % Scalp solut ion 03/23/20 21 suspend ed Appl y 5-10 drop s to scal p itch y area and mass age in AmLODIPine Besylate NULL 0 16 suspend ed diltiazem HCl diltiaze m HCl active Fish Oil NULL 09/07/19 16 suspend ed Lutein NULL 05/20/20 16 suspend ed metoprolol tartrate metoprol ol tartrate active Niacin NULL 09/07/19 16 suspend ed Potassium Citrate ER NULL 04/12 14 suspend ed Problems Problem Code Type Status Date of Diagnosis Date of Resolution Atopic dermatitis (disorder) 25478194(S NOMED) Diagnosis active 01/07/2025 Atopic dermatitis (disorder) 13189074(S NOMED) Diagnosis active 01/05/2025 Atopic dermatitis (disorder) 45595128(S NOMED) Diagnosis active 01/03/2025 Atopic dermatitis (disorder) 17613198(S NOMED) Diagnosis active 12/31/2024 Atopic dermatitis (disorder) 79891482(S NOMED) Diagnosis active 12/29/2024 Atopic dermatitis (disorder) 44258586(S NOMED) Diagnosis active 12/27/2024 Atopic dermatitis (disorder) 32114503(S NOMED) Diagnosis active 12/22/2024 Atopic dermatitis (disorder) 15634253(S NOMED) Diagnosis active 12/17/2024 Atopic dermatitis (disorder) 45891984(S NOMED) Diagnosis active 12/10/2024 Atopic dermatitis (disorder) 48275866(S NOMED) Diagnosis active 12/08/2024 Atopic dermatitis (disorder) 15973590(S NOMED) Diagnosis active 12/03/2024 Atopic dermatitis (disorder) 70296163(S NOMED) Diagnosis active 12/01/2024 Neoplasm of uncertain behavior of skin (disorder) 69171297(S NOMED) Diagnosis active 11/29/2024 Atopic dermatitis (disorder) 53508808(S NOMED) Diagnosis active 11/29/2024 Atopic dermatitis (disorder) 91478646(S NOMED) Diagnosis active 11/29/2024 Atopic dermatitis (disorder) 90100735(S NOMED) Diagnosis active 11/26/2024 Atopic dermatitis (disorder) 99742719(S NOMED) Diagnosis active 11/24/2024 Atopic dermatitis (disorder) 34074228(S NOMED) Diagnosis active 11/19/2024 Atopic dermatitis (disorder) 81293251(S NOMED) Diagnosis active 11/12/2024 Atopic dermatitis (disorder) 07463300(S NOMED) Diagnosis active 11/08/2024 Atopic dermatitis (disorder) 07657083(S NOMED) Diagnosis active 11/05/2024 Atopic dermatitis (disorder) 30005119(S NOMED) Diagnosis active 11/03/2024 Atopic dermatitis (disorder) 99394453(S NOMED) Diagnosis active 10/29/2024 Atopic dermatitis (disorder) 64204632(S NOMED) Diagnosis active 10/27/2024 Atopic dermatitis (disorder) 36651888(S NOMED) Diagnosis active 10/25/2024 Atopic dermatitis (disorder) 54210459(S NOMED) Diagnosis active 10/20/2024 Atopic dermatitis (disorder) 84201832(S NOMED) Diagnosis active 10/13/2024 Atopic dermatitis (disorder) 21935530(S NOMED) Diagnosis active 10/11/2024 Atopic dermatitis (disorder) 06195119(S NOMED) Diagnosis active 10/08/2024 Atopic dermatitis (disorder) 80070770(S NOMED) Diagnosis active 10/01/2024 Atopic dermatitis (disorder) 27433204(S NOMED) Diagnosis active 09/29/2024 Atopic dermatitis (disorder) 96564485(S NOMED) Diagnosis active 09/27/2024 Atopic dermatitis (disorder) 99366144(S NOMED) Diagnosis active 09/24/2024 Atopic dermatitis (disorder) 09772616(S NOMED) Diagnosis active 09/22/2024 Atopic dermatitis (disorder) 50675719(S NOMED) Diagnosis active 09/17/2024 Atopic dermatitis (disorder) 44192150(S NOMED) Diagnosis active 09/15/2024 Atopic dermatitis (disorder) 21217830(S NOMED) Diagnosis active 09/10/2024 Atopic dermatitis (disorder) 48797680(S NOMED) Diagnosis active 09/03/2024 Atopic dermatitis (disorder) 56192329(S NOMED) Diagnosis active 09/01/2024 Atopic dermatitis (disorder) 18392864(S NOMED) Diagnosis active 08/27/2024 Hemangioma of skin and subcutaneous tissue (disorder) 562904644( SNOMED) Diagnosis active 08/25/2024 Seborrheic keratosis (disorder) 611500105( SNOMED) Diagnosis active 08/25/2024 Disorder of pigmentation (disorder) 028267632( SNOMED) Diagnosis active 08/25/2024 Melanocytic nevus of trunk (disorder) 680840443( SNOMED) Diagnosis active 08/25/2024 Atopic dermatitis (disorder) 54840405(S NOMED) Diagnosis active 08/25/2024 Patient encounter status (finding) 176992053( SNOMED) Diagnosis active 08/25/2024 Atopic dermatitis (disorder) 42695468(S NOMED) Diagnosis active 08/25/2024 Atopic dermatitis (disorder) 75293513(S NOMED) Diagnosis active 08/23/2024 Atopic dermatitis (disorder) 64343714(S NOMED) Diagnosis active 08/18/2024 Atopic dermatitis (disorder) 65531972(S NOMED) Diagnosis active 08/11/2024 Atopic dermatitis (disorder) 42379616(S NOMED) Diagnosis active 08/06/2024 Atopic dermatitis (disorder) 79228020(S NOMED) Diagnosis active 08/02/2024 Atopic dermatitis (disorder) 58831125(S NOMED) Diagnosis active 07/30/2024 Atopic dermatitis (disorder) 65386613(S NOMED) Diagnosis active 07/21/2024 Atopic dermatitis (disorder) 02526727(S NOMED) Diagnosis active 07/19/2024 Disorder of pigmentation (disorder) 795600053( SNOMED) Diagnosis active 07/19/2024 Atopic dermatitis (disorder) 15507618(S NOMED) Diagnosis active 07/16/2024 Atopic dermatitis (disorder) 03421321(S NOMED) Diagnosis active 07/14/2024 Atopic dermatitis (disorder) 53511653(S NOMED) Diagnosis active 07/09/2024 Atopic dermatitis (disorder) 79882504(S NOMED) Diagnosis active 07/05/2024 Atopic dermatitis (disorder) 12500709(S NOMED) Diagnosis active 07/02/2024 Atopic dermatitis (disorder) 86191586(S NOMED) Diagnosis active 06/28/2024 Atopic dermatitis (disorder) 75666770(S NOMED) Diagnosis active 06/25/2024 Atopic dermatitis (disorder) 57302156(S NOMED) Diagnosis active 06/18/2024 Atopic dermatitis (disorder) 25554493(S NOMED) Diagnosis active 06/14/2024 Atopic dermatitis (disorder) 56303628(S NOMED) Diagnosis active 06/11/2024 Atopic dermatitis (disorder) 96983900(S NOMED) Diagnosis active 06/02/2024 Atopic dermatitis (disorder) 92765594(S NOMED) Diagnosis active 05/28/2024 Atopic dermatitis (disorder) 76644281(S NOMED) Diagnosis active 05/26/2024 Atopic dermatitis (disorder) 87455545(S NOMED) Diagnosis active 05/24/2024 Atopic dermatitis (disorder) 94021174(S NOMED) Diagnosis active 05/18/2024 Atopic dermatitis (disorder) 70150203(S NOMED) Diagnosis active 04/23/2024 Localized edema (finding) 749803820( SNOMED) Diagnosis active 03/24/2024 Atopic dermatitis (disorder) 99329142(S NOMED) Diagnosis active 01/30/2024 Hemangioma of skin and subcutaneous tissue (disorder) 153545650( SNOMED) Diagnosis active 12/29/2023 Seborrheic keratosis (disorder) 238127274( SNOMED) Diagnosis active 12/29/2023 Disorder of pigmentation (disorder) 195993201( SNOMED) Diagnosis active 12/29/2023 Melanocytic nevus of trunk (disorder) 158701683( SNOMED) Diagnosis active 12/29/2023 Atopic dermatitis (disorder) 23178186(S NOMED) Diagnosis active 12/29/2023 Seborrheic dermatitis (disorder) 82329105(S NOMED) Diagnosis active 12/29/2023 Patient encounter status (finding) 126982910( SNOMED) Diagnosis active 12/29/2023 History of malignant neoplasm of skin (situation) 503069531( SNOMED) Diagnosis active 12/29/2023 Atopic dermatitis (disorder) 83193927(S NOMED) Diagnosis active 12/19/2023 Atopic dermatitis (disorder) 31198727(S NOMED) Diagnosis active 12/12/2023 Atopic dermatitis (disorder) 94706877(S NOMED) Diagnosis active 12/05/2023 Atopic dermatitis (disorder) 90608235(S NOMED) Diagnosis active 11/21/2023 Atopic dermatitis (disorder) 52037164(S NOMED) Diagnosis active 11/14/2023 Atopic dermatitis (disorder) 85171949(S NOMED) Diagnosis active 11/07/2023 Atopic dermatitis (disorder) 35159098(S NOMED) Diagnosis active 10/31/2023 Atopic dermatitis (disorder) 13091076(S NOMED) Diagnosis active 10/24/2023 Atopic dermatitis (disorder) 50336874(S NOMED) Diagnosis active 10/17/2023 Atopic dermatitis (disorder) 46824506(S NOMED) Diagnosis active 10/10/2023 Atopic dermatitis (disorder) 24631690(S NOMED) Diagnosis active 10/03/2023 Atopic dermatitis (disorder) 92681361(S NOMED) Diagnosis active 09/26/2023 Atopic dermatitis (disorder) 23942861(S NOMED) Diagnosis active 09/05/2023 Atopic dermatitis (disorder) 55093394(S NOMED) Diagnosis active 08/29/2023 Atopic dermatitis (disorder) 78703018(S NOMED) Diagnosis active 08/22/2023 Atopic dermatitis (disorder) 73455527(S NOMED) Diagnosis active 08/15/2023 Atopic dermatitis (disorder) 35697297(S NOMED) Diagnosis active 08/08/2023 Atopic dermatitis (disorder) 85621537(S NOMED) Diagnosis active 08/01/2023 Atopic dermatitis (disorder) 18760135(S NOMED) Diagnosis active 07/25/2023 Atopic dermatitis (disorder) 59736479(S NOMED) Diagnosis active 07/18/2023 Atopic dermatitis (disorder) 78188638(S NOMED) Diagnosis active 07/11/2023 Hemangioma of skin and subcutaneous tissue (disorder) 440743182( SNOMED) Diagnosis active 07/07/2023 Seborrheic keratosis (disorder) 525922929( SNOMED) Diagnosis active 07/07/2023 Disorder of pigmentation (disorder) 777295275( SNOMED) Diagnosis active 07/07/2023 Melanocytic nevus of trunk (disorder) 632417398( SNOMED) Diagnosis active 07/07/2023 Atopic dermatitis (disorder) 90978093(S NOMED) Diagnosis active 07/07/2023 Patient encounter status (finding) 466090615( SNOMED) Diagnosis active 07/07/2023 History of malignant neoplasm of skin (situation) 417910096( SNOMED) Diagnosis active 07/07/2023 Atopic dermatitis (disorder) 63331490(S NOMED) Diagnosis active 07/04/2023 Atopic dermatitis (disorder) 96230488(S NOMED) Diagnosis active 06/30/2023 Atopic dermatitis (disorder) 73345224(S NOMED) Diagnosis active 06/27/2023 Atopic dermatitis (disorder) 68300652(S NOMED) Diagnosis active 06/20/2023 Atopic dermatitis (disorder) 18697121(S NOMED) Diagnosis active 06/17/2023 Atopic dermatitis (disorder) 26644455(S NOMED) Diagnosis active 06/13/2023 Atopic dermatitis (disorder) 92598079(S NOMED) Diagnosis active 06/09/2023 Atopic dermatitis (disorder) 65595550(S NOMED) Diagnosis active 06/06/2023 Atopic dermatitis (disorder) 31084627(S NOMED) Diagnosis active 06/02/2023 Atopic dermatitis (disorder) 90706006(S NOMED) Diagnosis active 05/30/2023 Atopic dermatitis (disorder) 88788105(S NOMED) Diagnosis active 05/26/2023 Atopic dermatitis (disorder) 15384169(S NOMED) Diagnosis active 05/23/2023 Atopic dermatitis (disorder) 09433723(S NOMED) Diagnosis active 05/14/2023 Atopic dermatitis (disorder) 97509925(S NOMED) Diagnosis active 05/12/2023 Atopic dermatitis (disorder) 36186737(S NOMED) Diagnosis active 05/09/2023 Atopic dermatitis (disorder) 79190960(S NOMED) Diagnosis active 05/05/2023 Atopic dermatitis (disorder) 19438557(S NOMED) Diagnosis active 05/02/2023 Atopic dermatitis (disorder) 91714155(S NOMED) Diagnosis active 04/28/2023 Atopic dermatitis (disorder) 28747764(S NOMED) Diagnosis active 04/25/2023 Atopic dermatitis (disorder) 40640912(S NOMED) Diagnosis active 04/18/2023 Atopic dermatitis (disorder) 28725611(S NOMED) Diagnosis active 04/14/2023 Atopic dermatitis (disorder) 56656339(S NOMED) Diagnosis active 04/11/2023 Atopic dermatitis (disorder) 84037681(S NOMED) Diagnosis active 04/07/2023 Atopic dermatitis (disorder) 15192597(S NOMED) Diagnosis active 04/04/2023 Atopic dermatitis (disorder) 22050034(S NOMED) Diagnosis active 03/31/2023 Atopic dermatitis (disorder) 76860295(S NOMED) Diagnosis active 03/28/2023 Surgical follow-up (finding) 011288750( SNOMED) Diagnosis active 03/25/2023 Basal cell carcinoma of face (disorder) 620565055( SNOMED) Diagnosis active 03/18/2023 Basal cell carcinoma of face (disorder) 117073192( SNOMED) Diagnosis active 03/05/2023 Neoplasm of uncertain behavior of skin (disorder) 25503354(S NOMED) Diagnosis active 03/05/2023 Atopic dermatitis (disorder) 26446081(S NOMED) Diagnosis active 03/03/2023 Atopic dermatitis (disorder) 38105236(S NOMED) Diagnosis active 02/28/2023 Atopic dermatitis (disorder) 50689991(S NOMED) Diagnosis active 02/20/2023 Atopic dermatitis (disorder) 47774522(S NOMED) Diagnosis active 02/17/2023 Atopic dermatitis (disorder) 62798207(S NOMED) Diagnosis active 02/14/2023 Atopic dermatitis (disorder) 32434244(S NOMED) Diagnosis active 02/10/2023 Atopic dermatitis (disorder) 86181898(S NOMED) Diagnosis active 02/07/2023 Atopic dermatitis (disorder) 14209950(S NOMED) Diagnosis active 02/03/2023 Atopic dermatitis (disorder) 27734321(S NOMED) Diagnosis active 01/31/2023 Atopic dermatitis (disorder) 17335861(S NOMED) Diagnosis active 01/24/2023 Neoplasm of uncertain behavior of skin (disorder) 87003865(S NOMED) Diagnosis active 01/20/2023 Atopic dermatitis (disorder) 25952796(S NOMED) Diagnosis active 01/20/2023 Atopic dermatitis (disorder) 92379865(S NOMED) Diagnosis active 01/17/2023 Atopic dermatitis (disorder) 12421965(S NOMED) Diagnosis active 01/10/2023 Atopic dermatitis (disorder) 40720074(S NOMED) Diagnosis active 01/06/2023 Atopic dermatitis (disorder) 10124272(S NOMED) Diagnosis active 01/03/2023 Atopic dermatitis (disorder) 92733755(S NOMED) Diagnosis active 12/27/2022 Atopic dermatitis (disorder) 72909446(S NOMED) Diagnosis active 12/20/2022 Atopic dermatitis (disorder) 15544221(S NOMED) Diagnosis active 12/16/2022 Atopic dermatitis (disorder) 12910835(S NOMED) Diagnosis active 12/13/2022 Atopic dermatitis (disorder) 63828499(S NOMED) Diagnosis active 12/06/2022 Atopic dermatitis (disorder) 78590945(S NOMED) Diagnosis active 12/02/2022 Atopic dermatitis (disorder) 43976730(S NOMED) Diagnosis active 11/29/2022 Atopic dermatitis (disorder) 50486070(S NOMED) Diagnosis active 11/25/2022 Atopic dermatitis (disorder) 21481257(S NOMED) Diagnosis active 11/19/2022 Atopic dermatitis (disorder) 54248608(S NOMED) Diagnosis active 11/15/2022 Atopic dermatitis (disorder) 29085589(S NOMED) Diagnosis active 11/11/2022 Atopic dermatitis (disorder) 17947165(S NOMED) Diagnosis active 11/08/2022 Atopic dermatitis (disorder) 12677007(S NOMED) Diagnosis active 11/04/2022 Atopic dermatitis (disorder) 07940513(S NOMED) Diagnosis active 11/01/2022 Atopic dermatitis (disorder) 69707924(S NOMED) Diagnosis active 10/28/2022 Atopic dermatitis (disorder) 73035255(S NOMED) Diagnosis active 10/25/2022 Neoplasm of uncertain behavior of skin (disorder) 24002857(S NOMED) Diagnosis active 10/21/2022 Atopic dermatitis (disorder) 26337142(S NOMED) Diagnosis active 10/18/2022 Atopic dermatitis (disorder) 51507523(S NOMED) Diagnosis active 10/18/2022 Atopic dermatitis (disorder) 44960941(S NOMED) Diagnosis active 09/27/2022 Atopic dermatitis (disorder) 81548895(S NOMED) Diagnosis active 09/23/2022 Atopic dermatitis (disorder) 35381788(S NOMED) Diagnosis active 09/20/2022 Atopic dermatitis (disorder) 30675094(S NOMED) Diagnosis active 09/16/2022 Atopic dermatitis (disorder) 06422874(S NOMED) Diagnosis active 09/13/2022 Atopic dermatitis (disorder) 95716501(S NOMED) Diagnosis active 09/09/2022 Atopic dermatitis (disorder) 09731592(S NOMED) Diagnosis active 09/06/2022 Atopic dermatitis (disorder) 46374016(S NOMED) Diagnosis active 09/02/2022 Atopic dermatitis (disorder) 05642209(S NOMED) Diagnosis active 08/30/2022 Atopic dermatitis (disorder) 03687392(S NOMED) Diagnosis active 08/30/2022 Atopic dermatitis (disorder) 70497868(S NOMED) Diagnosis active 08/19/2022 Atopic dermatitis (disorder) 06572840(S NOMED) Diagnosis active 08/16/2022 Atopic dermatitis (disorder) 95188024(S NOMED) Diagnosis active 08/13/2022 Atopic dermatitis (disorder) 57636354(S NOMED) Diagnosis active 08/09/2022 Atopic dermatitis (disorder) 40773031(S NOMED) Diagnosis active 08/05/2022 Tinea pedis (disorder) 5169584(SN OMED) Diagnosis active 08/05/2022 Atopic dermatitis (disorder) 08231781(S NOMED) Diagnosis active 08/02/2022 Atopic dermatitis (disorder) 81782829(S NOMED) Diagnosis active 07/26/2022 Atopic dermatitis (disorder) 01509857(S NOMED) Diagnosis active 07/19/2022 Atopic dermatitis (disorder) 21827355(S NOMED) Diagnosis active 07/12/2022 Atopic dermatitis (disorder) 56242947(S NOMED) Diagnosis active 07/05/2022 Atopic dermatitis (disorder) 47117904(S NOMED) Diagnosis active 06/28/2022 Atopic dermatitis (disorder) 50777800(S NOMED) Diagnosis active 06/21/2022 Atopic dermatitis (disorder) 85423334(S NOMED) Diagnosis active 06/14/2022 Atopic dermatitis (disorder) 25976694(S NOMED) Diagnosis active 06/07/2022 Atopic dermatitis (disorder) 84794568(S NOMED) Diagnosis active 05/31/2022 Atopic dermatitis (disorder) 00608242(S NOMED) Diagnosis active 05/03/2022 Atopic dermatitis (disorder) 52620020(S NOMED) Diagnosis active 04/26/2022 Atopic dermatitis (disorder) 01008732(S NOMED) Diagnosis active 04/19/2022 Atopic dermatitis (disorder) 87833552(S NOMED) Diagnosis active 04/12/2022 Atopic dermatitis (disorder) 37710774(S NOMED) Diagnosis active 04/05/2022 Atopic dermatitis (disorder) 31887066(S NOMED) Diagnosis active 04/03/2022 Tinea pedis (disorder) 8233784(SN OMED) Diagnosis active 04/03/2022 Atopic dermatitis (disorder) 69193469(S NOMED) Diagnosis active 03/29/2022 Atopic dermatitis (disorder) 98421219(S NOMED) Diagnosis active 03/22/2022 Atopic dermatitis (disorder) 62569783(S NOMED) Diagnosis active 03/15/2022 Atopic dermatitis (disorder) 48239419(S NOMED) Diagnosis active 2022 Atopic dermatitis (disorder) 59505570(S NOMED) Diagnosis active 03/01/2022 Atopic dermatitis (disorder) 29819231(S NOMED) Diagnosis active 02/22/2022 Atopic dermatitis (disorder) 63292868(S NOMED) Diagnosis active 02/15/2022 Atopic dermatitis (disorder) 55252941(S NOMED) Diagnosis active 02/08/2022 Atopic dermatitis (disorder) 95209769(S NOMED) Diagnosis active 02/01/2022 Atopic dermatitis (disorder) 65241948(S NOMED) Diagnosis active 01/18/2022 Atopic dermatitis (disorder) 61066198(S NOMED) Diagnosis active 01/11/2022 Atopic dermatitis (disorder) 22099751(S NOMED) Diagnosis active 01/04/2022 Atopic dermatitis (disorder) 42798158(S NOMED) Diagnosis active 12/31/2021 Atopic dermatitis (disorder) 81633646(S NOMED) Diagnosis active 12/28/2021 Atopic dermatitis (disorder) 36590407(S NOMED) Diagnosis active 12/21/2021 Atopic dermatitis (disorder) 77728263(S NOMED) Diagnosis active 12/14/2021 Atopic dermatitis (disorder) 38938352(S NOMED) Diagnosis active 12/07/2021 Atopic dermatitis (disorder) 93586433(S NOMED) Diagnosis active 11/30/2021 Atopic dermatitis (disorder) 65603235(S NOMED) Diagnosis active 11/23/2021 Atopic dermatitis (disorder) 99478386(S NOMED) Diagnosis active 11/20/2021 Atopic dermatitis (disorder) 17316059(S NOMED) Diagnosis active 10/31/2021 Atopic dermatitis (disorder) 97134253(S NOMED) Diagnosis active 10/26/2021 Atopic dermatitis (disorder) 03389077(S NOMED) Diagnosis active 10/19/2021 Atopic dermatitis (disorder) 13936686(S NOMED) Diagnosis active 10/12/2021 Atopic dermatitis (disorder) 61466013(S NOMED) Diagnosis active 10/05/2021 Atopic dermatitis (disorder) 30210049(S NOMED) Diagnosis active 09/28/2021 Atopic dermatitis (disorder) 46322720(S NOMED) Diagnosis active 09/21/2021 Psoriasis vulgaris (disorder) 849303123( SNOMED) Diagnosis active 09/14/2021 Atopic dermatitis (disorder) 09871999(S NOMED) Diagnosis active 09/07/2021 Atopic dermatitis (disorder) 34649770(S NOMED) Diagnosis active 08/31/2021 Psoriasis vulgaris (disorder) 010569132( SNOMED) Diagnosis active 08/24/2021 Atopic dermatitis (disorder) 16586902(S NOMED) Diagnosis active 08/24/2021 Psoriasis vulgaris (disorder) 638967100( SNOMED) Diagnosis active 08/10/2021 Psoriasis vulgaris (disorder) 118667382( SNOMED) Diagnosis active 08/03/2021 Atopic dermatitis (disorder) 97478225(S NOMED) Diagnosis active 05/28/2021 Tinea pedis (disorder) 5197676(SN OMED) Diagnosis active 05/28/2021 Itching of skin (finding) 297270266( SNOMED) Diagnosis active 05/28/2021 Atopic dermatitis (disorder) 91896003(S NOMED) Diagnosis active 05/10/2021 Atopic dermatitis (disorder) 38316140(S NOMED) Diagnosis active 04/20/2021 Atopic dermatitis (disorder) 52581744(S NOMED) Diagnosis active 04/06/2021 Atopic dermatitis (disorder) 21591537(S NOMED) Diagnosis active 03/30/2021 Atopic dermatitis (disorder) 59243264(S NOMED) Diagnosis active 03/23/2021 Atopic dermatitis (disorder) 70233226(S NOMED) Diagnosis active 03/23/2021 Tinea pedis (disorder) 3145301(SN OMED) Diagnosis active 03/23/2021 Tinea corporis (disorder) 67485380(S NOMED) Diagnosis active 03/23/2021 Itching of skin (finding) 207322721( SNOMED) Diagnosis active 03/23/2021 Atopic dermatitis (disorder) 18592018(S NOMED) Diagnosis active 03/19/2021 Atopic dermatitis (disorder) 94587929(S NOMED) Diagnosis active 03/16/2021 Atopic dermatitis (disorder) 63206639(S NOMED) Diagnosis active 03/12/2021 Atopic dermatitis (disorder) 15696237(S NOMED) Diagnosis active 03/09/2021 Atopic dermatitis (disorder) 78819870(S NOMED) Diagnosis active 03/05/2021 Atopic dermatitis (disorder) 82575804(S NOMED) Diagnosis active 03/02/2021 Atopic dermatitis (disorder) 63073315(S NOMED) Diagnosis active 02/19/2021 Atopic dermatitis (disorder) 36042978(S NOMED) Diagnosis active 02/16/2021 Itching of skin (finding) 601660547( SNOMED) Diagnosis active 02/02/2021 Atopic dermatitis (disorder) 46064971(S NOMED) Diagnosis active 02/02/2021 Atopic dermatitis (disorder) 50290780(S NOMED) Diagnosis active 01/29/2021 Psoriasis vulgaris (disorder) 887014260( SNOMED) Diagnosis active 01/26/2021 Atopic dermatitis (disorder) 75440431(S NOMED) Diagnosis active 01/22/2021 Atopic dermatitis (disorder) 35959023(S NOMED) Diagnosis active 01/19/2021 Atopic dermatitis (disorder) 97769581(S NOMED) Diagnosis active 01/15/2021 Atopic dermatitis (disorder) 18468605(S NOMED) Diagnosis active 01/12/2021 Atopic dermatitis (disorder) 04308068(S NOMED) Diagnosis active 01/08/2021 Atopic dermatitis (disorder) 24266168(S NOMED) Diagnosis active 01/05/2021 Atopic dermatitis (disorder) 53445654(S NOMED) Diagnosis active 01/01/2021 Atopic dermatitis (disorder) 39810995(S NOMED) Diagnosis active 12/29/2020 Atopic dermatitis (disorder) 29313147(S NOMED) Diagnosis active 12/22/2020 Atopic dermatitis (disorder) 86849979(S NOMED) Diagnosis active 12/18/2020 Psoriasis vulgaris (disorder) 791435023( SNOMED) Diagnosis active 12/15/2020 Atopic dermatitis (disorder) 37896066(S NOMED) Diagnosis active 12/11/2020 Atopic dermatitis (disorder) 15990912(S NOMED) Diagnosis active 12/08/2020 Atopic dermatitis (disorder) 85763104(S NOMED) Diagnosis active 12/08/2020 Tinea pedis (disorder) 8269653(SN OMED) Diagnosis active 12/08/2020 Tinea corporis (disorder) 44332510(S NOMED) Diagnosis active 12/08/2020 Atopic dermatitis (disorder) 24358835(S NOMED) Diagnosis active 12/04/2020 Atopic dermatitis (disorder) 00479207(S NOMED) Diagnosis active 12/01/2020 Atopic dermatitis (disorder) 48760612(S NOMED) Diagnosis active 11/27/2020 Atopic dermatitis (disorder) 04521665(S NOMED) Diagnosis active 11/24/2020 Atopic dermatitis (disorder) 74628041(S NOMED) Diagnosis active 11/22/2020 Atopic dermatitis (disorder) 71412946(S NOMED) Diagnosis active 11/17/2020 Atopic dermatitis (disorder) 55897312(S NOMED) Diagnosis active 11/13/2020 Atopic dermatitis (disorder) 83040107(S NOMED) Diagnosis active 11/10/2020 Atopic dermatitis (disorder) 77654567(S NOMED) Diagnosis active 11/06/2020 Atopic dermatitis (disorder) 68502917(S NOMED) Diagnosis active 11/03/2020 Atopic dermatitis (disorder) 31350404(S NOMED) Diagnosis active 10/30/2020 Atopic dermatitis (disorder) 86946705(S NOMED) Diagnosis active 10/27/2020 Atopic dermatitis (disorder) 08252558(S NOMED) Diagnosis active 10/23/2020 Atopic dermatitis (disorder) 65655159(S NOMED) Diagnosis active 10/20/2020 Atopic dermatitis (disorder) 41192139(S NOMED) Diagnosis active 10/16/2020 Surgical follow-up (finding) 338337096( SNOMED) Diagnosis active 10/09/2020 Tinea pedis (disorder) 4294072(SN OMED) Diagnosis active 10/06/2020 Tinea corporis (disorder) 64455380(S NOMED) Diagnosis active 10/06/2020 Follicular cysts of skin and subcutaneous tissue (disorder) 590249861( SNOMED) Diagnosis active 09/27/2020 Atopic dermatitis (disorder) 61467951(S NOMED) Diagnosis active 09/25/2020 Atopic dermatitis (disorder) 79064719(S NOMED) Diagnosis active 09/18/2020 Psoriasis vulgaris (disorder) 309127239( SNOMED) Diagnosis active 09/15/2020 Atopic dermatitis (disorder) 98337923(S NOMED) Diagnosis active 09/11/2020 Psoriasis vulgaris (disorder) 489334940( SNOMED) Diagnosis active 09/08/2020 Intrinsic (allergic) eczema L20.84(ICD -10) Diagnosis active 09/04/2020 Psoriasis vulgaris L40.0(ICD- 10) Diagnosis active 09/01/2020 Psoriasis vulgaris L40.0(ICD- 10) Diagnosis active 08/28/2020 Psoriasis vulgaris L40.0(ICD- 10) Diagnosis active 08/25/2020 Intrinsic (allergic) eczema L20.84(ICD -10) Diagnosis active 08/25/2020 Other follicular cysts of the skin and subcutaneous tissue L72.8(ICD- 10) Diagnosis active 08/21/2020 Intrinsic (allergic) eczema L20.84(ICD -10) Diagnosis active 08/21/2020 Psoriasis vulgaris L40.0(ICD- 10) Diagnosis active 08/21/2020 Psoriasis vulgaris L40.0(ICD- 10) Diagnosis active 08/18/2020 Psoriasis vulgaris L40.0(ICD- 10) Diagnosis active 08/14/2020 Psoriasis vulgaris L40.0(ICD- 10) Diagnosis active 08/11/2020 Intrinsic (allergic) eczema L20.84(ICD -10) Diagnosis active 08/02/2020 Dermatitis, unspecified L30.9(ICD- 10) Diagnosis active 08/02/2020 Tinea pedis B35.3(ICD- 10) Diagnosis active 08/02/2020 Psoriasis vulgaris L40.0(ICD- 10) Diagnosis active 08/02/2020 Psoriasis vulgaris L40.0(ICD- 10) Diagnosis active 07/31/2020 Psoriasis vulgaris L40.0(ICD- 10) Diagnosis active 07/28/2020 Intrinsic (allergic) eczema L20.84(ICD -10) Diagnosis active 07/21/2020 Psoriasis vulgaris L40.0(ICD- 10) Diagnosis active 07/17/2020 Intrinsic (allergic) eczema L20.84(ICD -10) Diagnosis active 07/17/2020 Psoriasis vulgaris L40.0(ICD- 10) Diagnosis active 07/14/2020 Psoriasis vulgaris L40.0(ICD- 10) Diagnosis active 07/10/2020 Psoriasis vulgaris L40.0(ICD- 10) Diagnosis active 07/07/2020 Psoriasis vulgaris L40.0(ICD- 10) Diagnosis active 07/03/2020 Psoriasis vulgaris L40.0(ICD- 10) Diagnosis active 06/30/2020 Psoriasis vulgaris L40.0(ICD- 10) Diagnosis active 06/26/2020 Psoriasis vulgaris L40.0(ICD- 10) Diagnosis active 06/19/2020 Psoriasis vulgaris L40.0(ICD- 10) Diagnosis active 06/12/2020 Psoriasis vulgaris L40.0(ICD- 10) Diagnosis active 06/09/2020 Psoriasis vulgaris L40.0(ICD- 10) Diagnosis active 06/05/2020 Psoriasis vulgaris L40.0(ICD- 10) Diagnosis active 06/02/2020 Tinea corporis B35.4(ICD- 10) Diagnosis active 05/31/2020 Intrinsic (allergic) eczema L20.84(ICD -10) Diagnosis active 05/31/2020 Psoriasis vulgaris L40.0(ICD- 10) Diagnosis active 05/29/2020 Psoriasis vulgaris L40.0(ICD- 10) Diagnosis active 05/26/2020 Psoriasis vulgaris L40.0(ICD- 10) Diagnosis active 05/22/2020 Psoriasis vulgaris L40.0(ICD- 10) Diagnosis active 05/15/2020 Psoriasis vulgaris L40.0(ICD- 10) Diagnosis active 05/12/2020 Tinea corporis B35.4(ICD- 10) Diagnosis active 05/01/2020 Intrinsic (allergic) eczema L20.84(ICD -10) Diagnosis active 05/01/2020 Psoriasis vulgaris L40.0(ICD- 10) Diagnosis active 05/01/2020 Psoriasis vulgaris L40.0(ICD- 10) Diagnosis active 04/28/2020 Psoriasis vulgaris L40.0(ICD- 10) Diagnosis active 04/24/2020 Psoriasis vulgaris L40.0(ICD- 10) Diagnosis active 04/21/2020 Psoriasis vulgaris L40.0(ICD- 10) Diagnosis active 04/17/2020 Psoriasis vulgaris L40.0(ICD- 10) Diagnosis active 04/14/2020 Psoriasis vulgaris L40.0(ICD- 10) Diagnosis active 04/10/2020 Psoriasis vulgaris L40.0(ICD- 10) Diagnosis active 04/07/2020 Psoriasis vulgaris L40.0(ICD- 10) Diagnosis active 03/31/2020 Psoriasis vulgaris L40.0(ICD- 10) Diagnosis active 03/27/2020 Psoriasis vulgaris L40.0(ICD- 10) Diagnosis active 03/24/2020 Tinea corporis B35.4(ICD- 10) Diagnosis active 03/21/2020 Psoriasis vulgaris L40.0(ICD- 10) Diagnosis active 03/20/2020 Psoriasis vulgaris L40.0(ICD- 10) Diagnosis active 03/17/2020 Psoriasis vulgaris L40.0(ICD- 10) Diagnosis active 03/13/2020 Psoriasis vulgaris L40.0(ICD- 10) Diagnosis active 03/10/2020 Psoriasis vulgaris L40.0(ICD- 10) Diagnosis active 03/06/2020 Psoriasis vulgaris L40.0(ICD- 10) Diagnosis active 03/03/2020 Tinea corporis B35.4(ICD- 10) Diagnosis active 02/25/2020 Intrinsic (allergic) eczema L20.84(ICD -10) Diagnosis active 02/25/2020 Psoriasis vulgaris L40.0(ICD- 10) Diagnosis active 02/25/2020 Psoriasis vulgaris L40.0(ICD- 10) Diagnosis active 02/21/2020 Psoriasis vulgaris L40.0(ICD- 10) Diagnosis active 02/18/2020 Psoriasis vulgaris L40.0(ICD- 10) Diagnosis active 02/14/2020 Psoriasis vulgaris L40.0(ICD- 10) Diagnosis active 02/11/2020 Psoriasis vulgaris L40.0(ICD- 10) Diagnosis active 02/07/2020 Psoriasis vulgaris L40.0(ICD- 10) Diagnosis active 02/04/2020 Psoriasis vulgaris L40.0(ICD- 10) Diagnosis active 01/31/2020 Psoriasis vulgaris L40.0(ICD- 10) Diagnosis active 01/28/2020 Psoriasis vulgaris L40.0(ICD- 10) Diagnosis active 01/24/2020 Tinea corporis B35.4(ICD- 10) Diagnosis active 01/21/2020 Intrinsic (allergic) eczema L20.84(ICD -10) Diagnosis active 01/21/2020 Psoriasis vulgaris L40.0(ICD- 10) Diagnosis active 01/21/2020 Psoriasis vulgaris L40.0(ICD- 10) Diagnosis active 01/17/2020 Psoriasis vulgaris L40.0(ICD- 10) Diagnosis active 01/14/2020 Psoriasis vulgaris L40.0(ICD- 10) Diagnosis active 01/10/2020 Psoriasis vulgaris L40.0(ICD- 10) Diagnosis active 01/07/2020 Psoriasis vulgaris L40.0(ICD- 10) Diagnosis active 01/03/2020 Psoriasis vulgaris L40.0(ICD- 10) Diagnosis active 12/31/2019 Intrinsic (allergic) eczema L20.84(ICD -10) Diagnosis active 12/27/2019 Intrinsic (allergic) eczema L20.84(ICD -10) Diagnosis active 12/23/2019 Intrinsic (allergic) eczema L20.84(ICD -10) Diagnosis active 12/20/2019 Intrinsic (allergic) eczema L20.84(ICD -10) Diagnosis active 12/17/2019 Intrinsic (allergic) eczema L20.84(ICD -10) Diagnosis active 12/13/2019 Intrinsic (allergic) eczema L20.84(ICD -10) Diagnosis active 12/10/2019 Intrinsic (allergic) eczema L20.84(ICD -10) Diagnosis active 12/10/2019 Intrinsic (allergic) eczema L20.84(ICD -10) Diagnosis active 12/06/2019 Psoriasis vulgaris L40.0(ICD- 10) Diagnosis active 09/13/2019 Psoriasis vulgaris L40.0(ICD- 10) Diagnosis active 09/10/2019 Intrinsic (allergic) eczema L20.84(ICD -10) Diagnosis active 09/07/2019 Tinea corporis B35.4(ICD- 10) Diagnosis active 09/07/2019 Psoriasis vulgaris L40.0(ICD- 10) Diagnosis active 08/30/2019 Psoriasis vulgaris L40.0(ICD- 10) Diagnosis active 08/27/2019 Psoriasis vulgaris L40.0(ICD- 10) Diagnosis active 08/23/2019 Psoriasis vulgaris L40.0(ICD- 10) Diagnosis active 08/20/2019 Psoriasis vulgaris L40.0(ICD- 10) Diagnosis active 08/16/2019 Intrinsic (allergic) eczema L20.84(ICD -10) Diagnosis active 08/13/2019 Psoriasis vulgaris L40.0(ICD- 10) Diagnosis active 08/13/2019 Psoriasis vulgaris L40.0(ICD- 10) Diagnosis active 08/11/2019 Psoriasis vulgaris L40.0(ICD- 10) Diagnosis active 08/06/2019 Psoriasis vulgaris L40.0(ICD- 10) Diagnosis active 08/02/2019 Psoriasis vulgaris L40.0(ICD- 10) Diagnosis active 07/30/2019 Psoriasis vulgaris L40.0(ICD- 10) Diagnosis active 07/23/2019 Psoriasis vulgaris L40.0(ICD- 10) Diagnosis active 07/19/2019 Psoriasis vulgaris L40.0(ICD- 10) Diagnosis active 07/16/2019 Psoriasis vulgaris L40.0(ICD- 10) Diagnosis active 07/12/2019 Psoriasis vulgaris L40.0(ICD- 10) Diagnosis active 07/09/2019 Psoriasis vulgaris L40.0(ICD- 10) Diagnosis active 07/05/2019 Psoriasis vulgaris L40.0(ICD- 10) Diagnosis active 07/02/2019 Intrinsic (allergic) eczema L20.84(ICD -10) Diagnosis active 06/28/2019 Intrinsic (allergic) eczema L20.84(ICD -10) Diagnosis active 05/19/2019 Tinea unguium B35.1(ICD- 10) Diagnosis active 04/23/2019 Tinea corporis B35.4(ICD- 10) Diagnosis active 04/23/2019 Intrinsic (allergic) eczema L20.84(ICD -10) Diagnosis active 04/23/2019 Disorder of skin (disorder) 69444870(S NOMED) Diagnosis active 12/29/2018 Atopic dermatitis (disorder) 65746662(S NOMED) Diagnosis active 12/01/2018 Atopic dermatitis (disorder) 33739686(S NOMED) Diagnosis active 11/03/2018 Atopic dermatitis (disorder) 82090613(S NOMED) Diagnosis active 01/26/2018 Itching of skin (finding) 698840044( SNOMED) Diagnosis active 10/10/2017 Melanocytic nevus of trunk (disorder) 621325824( SNOMED) Diagnosis active 08/22/2017 Benign neoplasm of skin of upper limb (disorder) 67108754(S NOMED) Diagnosis active 08/08/2017 Itching of skin (finding) 434314115( SNOMED) Diagnosis active 07/29/2017 Benign neoplasm of skin of trunk (disorder) 95560333(S NOMED) Diagnosis active 07/18/2017 Atopic dermatitis (disorder) 98872235(S NOMED) Diagnosis active 06/18/2017 Atopic dermatitis (disorder) 89757509(S NOMED) Diagnosis active 06/18/2017 Atopic dermatitis (disorder) 20028694(S NOMED) Diagnosis active 05/09/2017 Tinea corporis (disorder) 11323840(S NOMED) Diagnosis active 02/07/2017 Atopic dermatitis (disorder) 63601257(S NOMED) Diagnosis active 12/10/2016 Atopic dermatitis (disorder) 38832056(S NOMED) Diagnosis active 11/25/2016 Itching of skin (finding) 778693589( SNOMED) Diagnosis active 10/23/2016 Tinea corporis (disorder) 87441699(S NOMED) Diagnosis active 09/09/2016 Tinea corporis (disorder) 65118730(S NOMED) Diagnosis active 07/29/2016 Tinea corporis (disorder) 30910582(S NOMED) Diagnosis active 07/03/2016 Atopic dermatitis (disorder) 85582840(S NOMED) Diagnosis active 05/20/2016 Atopic dermatitis (disorder) 44519752(S NOMED) Diagnosis active 02/28/2016 Herpes labialis (disorder) 3764894(SN OMED) Diagnosis active 12/20/2015 Atopic dermatitis (disorder) 31360762(S NOMED) Diagnosis active 09/07/2015 Atopic dermatitis (disorder) 68543767(S NOMED) Diagnosis active 05/31/2015 Benign neoplasm of skin of trunk (disorder) 05835290(S NOMED) Diagnosis active 05/30/2015 Contact dermatitis caused by solar radiation (disorder) 54622005(S NOMED) Diagnosis active 01/04/2015 Dermatophytosis of the body (disorder) 694100118( SNOMED) Diagnosis active 10/25/2014 Neoplasm of uncertain behavior of skin (disorder) 14097218(S NOMED) Diagnosis active 05/31/2014 History of clinical finding in subject (situation) 752697829( SNOMED) Problem active Arthritis (disorder) 1609757(SN OMED) Problem active Increased blood pressure (finding) 30801191(S NOMED) Problem active Hypercholesterolemia (disorder) 50464984(S NOMED) Problem active Atrial fibrillation (disorder) 86439772(S NOMED) Problem active Secondary restless legs syndrome (disorder) 070053545( SNOMED) Problem active Eczema (disorder) 86602705(S NOMED) Problem active Psoriasis (disorder) 3947568(SN OMED) Problem active Basal cell carcinoma of skin (disorder) 790682487( SNOMED) Problem active Diverticulitis (morphologic abnormality) 36049982(S NOMED) Problem active Hypothyroidism (disorder) 85493659(S NOMED) Problem active Malignant tumor of thyroid gland (disorder) 023321132( SNOMED) Problem active Results No data Encounters Service provided at [facility], [address] [place] [address], [address], [place], [place] [id number]. Office phonenumber is [phone]. Office fax number is [phone]. Encounter Diagnosis Location Date / Time Type Eczema (L20.89) [facility] 01/07/2025 15:30:00 UTC N I Reason For Referral No data Procedures Procedure Date Phototherapy of skin (procedure) 025 12:00 am UTC Phototherapy of skin (procedure) 025 12:00 am UTC Phototherapy of skin (procedure) 025 12:00 am UTC Phototherapy of skin (procedure) 025 12:00 am UTC Phototherapy of skin (procedure) 025 12:00 am UTC Phototherapy of skin (procedure) 025 12:00 am UTC Phototherapy of skin (procedure) 025 12:00 am UTC Phototherapy of skin (procedure) 025 12:00 am UTC Phototherapy of skin (procedure) 025 12:00 am UTC Phototherapy of skin (procedure) 025 12:00 am UTC Phototherapy of skin (procedure) 025 12:00 am UTC Phototherapy of skin (procedure) 025 12:00 am UTC Shave excision of skin lesion (procedure ) 11/29/2024 12:00 am UTC Destruction of lesion of skin (procedure ) 11/29/2024 12:00 am UTC Phototherapy of skin (procedure) 025 12:00 am UTC Phototherapy of skin (procedure) 025 12:00 am UTC Phototherapy of skin (procedure) 025 12:00 am UTC Phototherapy of skin (procedure) 025 12:00 am UTC Phototherapy of skin (procedure) 025 12:00 am UTC Phototherapy of skin (procedure) 025 12:00 am UTC Phototherapy of skin (procedure) 025 12:00 am UTC Phototherapy of skin (procedure) 025 12:00 am UTC Phototherapy of skin (procedure) 025 12:00 am UTC Phototherapy of skin (procedure) 025 12:00 am UTC Phototherapy of skin (procedure) 025 12:00 am UTC Phototherapy of skin (procedure) 025 12:00 am UTC Phototherapy of skin (procedure) 025 12:00 am UTC Phototherapy of skin (procedure) 025 12:00 am UTC Phototherapy of skin (procedure) 025 12:00 am UTC Phototherapy of skin (procedure) 025 12:00 am UTC Phototherapy of skin (procedure) 025 12:00 am UTC Phototherapy of skin (procedure) 025 12:00 am UTC Phototherapy of skin (procedure) 025 12:00 am UTC Phototherapy of skin (procedure) 025 12:00 am UTC Phototherapy of skin (procedure) 025 12:00 am UTC Phototherapy of skin (procedure) 025 12:00 am UTC Phototherapy of skin (procedure) 025 12:00 am UTC Phototherapy of skin (procedure) 025 12:00 am UTC Phototherapy of skin (procedure) 025 12:00 am UTC Phototherapy of skin (procedure) 025 12:00 am UTC Cryotherapy of skin lesion with liquid n itrogen (procedure) 08/25/2024 12:00 am UTC Phototherapy of skin (procedure) 025 12:00 am UTC Phototherapy of skin (procedure) 025 12:00 am UTC Phototherapy of skin (procedure) 025 12:00 am UTC Phototherapy of skin (procedure) 025 12:00 am UTC Phototherapy of skin (procedure) 025 12:00 am UTC Phototherapy of skin (procedure) 025 12:00 am UTC Phototherapy of skin (procedure) 025 12:00 am UTC Phototherapy of skin (procedure) 025 12:00 am UTC Phototherapy of skin (procedure) 025 12:00 am UTC Phototherapy of skin (procedure) 025 12:00 am UTC Phototherapy of skin (procedure) 025 12:00 am UTC Phototherapy of skin (procedure) 025 12:00 am UTC Phototherapy of skin (procedure) 025 12:00 am UTC Phototherapy of skin (procedure) 025 12:00 am UTC Phototherapy of skin (procedure) 025 12:00 am UTC Phototherapy of skin (procedure) 024 12:00 am UTC Phototherapy of skin (procedure) 024 12:00 am UTC Phototherapy of skin (procedure) 024 12:00 am UTC Phototherapy of skin (procedure) 024 12:00 am UTC Phototherapy of skin (procedure) 024 12:00 am UTC Phototherapy of skin (procedure) 024 12:00 am UTC Phototherapy of skin (procedure) 024 12:00 am UTC Phototherapy of skin (procedure) 024 12:00 am UTC Phototherapy of skin (procedure) 024 12:00 am UTC Phototherapy of skin (procedure) 024 12:00 am UTC Phototherapy of skin (procedure) 024 12:00 am UTC Phototherapy of skin (procedure) 024 12:00 am UTC Phototherapy of skin (procedure) 024 12:00 am UTC Phototherapy of skin (procedure) 024 12:00 am UTC Phototherapy of skin (procedure) 024 12:00 am UTC Phototherapy of skin (procedure) 024 12:00 am UTC Phototherapy of skin (procedure) 024 12:00 am UTC Phototherapy of skin (procedure) 024 12:00 am UTC Phototherapy of skin (procedure) 024 12:00 am UTC Phototherapy of skin (procedure) 024 12:00 am UTC Phototherapy of skin (procedure) 024 12:00 am [facility] Phototherapy of skin (procedure) 024 12:00 am [facility] Phototherapy of skin (procedure) 024 12:00 am [facility] Phototherapy of skin (procedure) 024 12:00 am [facility] Phototherapy of skin (procedure) 024 12:00 am [facility] Phototherapy of skin (procedure) 024 12:00 am [facility] Phototherapy of skin (procedure) 024 12:00 am [facility] Phototherapy of skin (procedure) 024 12:00 am [facility] Phototherapy of skin (procedure) 024 12:00 am [facility] Phototherapy of skin (procedure) 024 12:00 am [facility] Phototherapy of skin (procedure) 024 12:00 am [facility] Phototherapy of skin (procedure) 024 12:00 am [facility] Phototherapy of skin (procedure) 024 12:00 am [facility] Phototherapy of skin (procedure) 023 12:00 am [facility] Phototherapy of skin (procedure) 023 12:00 am [facility] Phototherapy of skin (procedure) 023 12:00 am [facility] Phototherapy of skin (procedure) 023 12:00 am [facility] Phototherapy of skin (procedure) 023 12:00 am [facility] Phototherapy of skin (procedure) 023 12:00 am [facility] Mohs surgery (procedure) 03/18/2023 12:0 0 am [facility] Shave biopsy (procedure) 03/05/2023 12:0 0 am [facility] Shave biopsy (procedure) 01/20/2023 12:0 0 am [facility] Shave biopsy (procedure) 10/21/2022 12:0 0 am [facility] Excision (procedure) 09/27/2020 12:00 am [facility] History of appendectomy (situation) Documentation of past medical history (p rocedure) History of appendectomy (situation) Documentation of past medical history (p rocedure) Documentation of past medical history (p rocedure) History of appendectomy (situation) History of appendectomy (situation) Documentation of past medical history (p rocedure) History of appendectomy (situation) Documentation of past medical history (p rocedure) History of appendectomy (situation) Documentation of past medical history (p rocedure) Documentation of past medical history (p rocedure) History of appendectomy (situation) History of appendectomy (situation) Documentation of past medical history (p rocedure) History of appendectomy (situation) Documentation of past medical history (p rocedure) History of appendectomy (situation) Documentation of past medical history (p rocedure) History of appendectomy (situation) Documentation of past medical history (p rocedure) Documentation of past medical history (p rocedure) History of appendectomy (situation) History of appendectomy (situation) Documentation of past medical history (p rocedure) History of appendectomy (situation) Documentation of past medical history (p rocedure) History of appendectomy (situation) Documentation of past medical history (p rocedure) History of appendectomy (situation) Documentation of past medical history (p rocedure) Documentation of past medical history (p rocedure) History of appendectomy (situation) History of appendectomy (situation) Documentation of past medical history (p rocedure) Documentation of past medical history (p rocedure) History of appendectomy (situation) Documentation of past medical history (p rocedure) History of appendectomy (situation) History of appendectomy (situation) Documentation of past medical history (p rocedure) History of appendectomy (situation) Documentation of past medical history (p rocedure) History of appendectomy (situation) Documentation of past medical history (p rocedure) History of appendectomy (situation) Documentation of past medical history (p rocedure) Documentation of past medical history (p rocedure) History of appendectomy (situation) History of appendectomy (situation) Documentation of past medical history (p rocedure) History of appendectomy (situation) Documentation of past medical history (p rocedure) History of appendectomy (situation) Documentation of past medical history (p rocedure) History of appendectomy (situation) Documentation of past medical history (p rocedure) History of appendectomy (situation) Documentation of past medical history (p rocedure) History of appendectomy (situation) Documentation of past medical history (p rocedure) History of appendectomy (situation) Documentation of past medical history (p rocedure) History of appendectomy (situation) Documentation of past medical history (p rocedure) History of appendectomy (situation) Documentation of past medical history (p rocedure) History of appendectomy (situation) Documentation of past medical history (p rocedure) Documentation of past medical history (p rocedure) History of appendectomy (situation) History of appendectomy (situation) Documentation of past medical history (p rocedure) Documentation of past medical history (p rocedure) History of appendectomy (situation) Documentation of past medical history (p rocedure) History of appendectomy (situation) History of appendectomy (situation) Documentation of past medical history (p rocedure) Documentation of past medical history (p rocedure) History of appendectomy (situation) History of appendectomy (situation) Documentation of past medical history (p rocedure) Documentation of past medical history (p rocedure) History of appendectomy (situation) History of appendectomy (situation) Documentation of past medical history (p rocedure) Documentation of past medical history (p rocedure) History of appendectomy (situation) History of appendectomy (situation) Documentation of past medical history (p rocedure) Documentation of past medical history (p rocedure) History of appendectomy (situation) Documentation of past medical history (p rocedure) History of appendectomy (situation) History of appendectomy (situation) Documentation of past medical history (p rocedure) History of appendectomy (situation) Documentation of past medical history (p rocedure) Documentation of past medical history (p rocedure) History of appendectomy (situation) History of appendectomy (situation) Documentation of past medical history (p rocedure) History of appendectomy (situation) Documentation of past medical history (p rocedure) History of appendectomy (situation) Documentation of past medical history (p rocedure) History of appendectomy (situation) Documentation of past medical history (p rocedure) Documentation of past medical history (p rocedure) History of appendectomy (situation) Documentation of past medical history (p rocedure) History of appendectomy (situation) Documentation of past medical history (p rocedure) History of appendectomy (situation) Documentation of past medical history (p rocedure) History of appendectomy (situation) History of appendectomy (situation) Documentation of past medical history (p rocedure) Documentation of past medical history (p rocedure) History of appendectomy (situation) History of appendectomy (situation) Documentation of past medical history (p rocedure) Documentation of past medical history (p rocedure) History of appendectomy (situation) History of appendectomy (situation) Documentation of past medical history (p rocedure) Documentation of past medical history (p rocedure) History of appendectomy (situation) History of appendectomy (situation) Documentation of past medical history (p rocedure) History of appendectomy (situation) Documentation of past medical history (p rocedure) History of appendectomy (situation) Documentation of past medical history (p rocedure) History of appendectomy (situation) Documentation of past medical history (p rocedure) History of appendectomy (situation) Documentation of past medical history (p rocedure) Documentation of past medical history (p rocedure) History of appendectomy (situation) Documentation of past medical history (p rocedure) History of appendectomy (situation) History of appendectomy (situation) Documentation of past medical history (p rocedure) Documentation of past medical history (p rocedure) History of appendectomy (situation) Documentation of past medical history (p rocedure) History of appendectomy (situation) History of appendectomy (situation) Documentation of past medical history (p rocedure) Documentation of past medical history (p rocedure) History of appendectomy (situation) History of appendectomy (situation) Documentation of past medical history (p rocedure) Documentation of past medical history (p rocedure) History of appendectomy (situation) History of appendectomy (situation) Documentation of past medical history (p rocedure) History of appendectomy (situation) Documentation of past medical history (p rocedure) History of appendectomy (situation) Documentation of past medical history (p rocedure) History of appendectomy (situation) Documentation of past medical history (p rocedure) History of appendectomy (situation) Documentation of past medical history (p rocedure) History of appendectomy (situation) Documentation of past medical history (p rocedure) History of appendectomy (situation) Documentation of past medical history (p rocedure) Documentation of past medical history (p rocedure) History of appendectomy (situation) History of appendectomy (situation) Documentation of past medical history (p rocedure) Documentation of past medical history (p rocedure) History of appendectomy (situation) Documentation of past medical history (p rocedure) History of appendectomy (situation) History of appendectomy (situation) Documentation of past medical history (p rocedure) History of appendectomy (situation) Documentation of past medical history (p rocedure) History of appendectomy (situation) Documentation of past medical history (p rocedure) History of appendectomy (situation) Documentation of past medical history (p rocedure) Documentation of past medical history (p rocedure) History of appendectomy (situation) Documentation of past medical history (p rocedure) History of appendectomy (situation) Documentation of past medical history (p rocedure) History of appendectomy (situation) Documentation of past medical history (p rocedure) History of appendectomy (situation) History of appendectomy (situation) Documentation of past medical history (p rocedure) History of appendectomy (situation) Documentation of past medical history (p rocedure) Documentation of past medical history (p rocedure) History of appendectomy (situation) Documentation of past medical history (p rocedure) History of appendectomy (situation) Documentation of past medical history (p rocedure) History of appendectomy (situation) History of appendectomy (situation) Documentation of past medical history (p rocedure) History of appendectomy (situation) Documentation of past medical history (p rocedure) Documentation of past medical history (p rocedure) History of appendectomy (situation) Documentation of past medical history (p rocedure) History of appendectomy (situation) Documentation of past medical history (p rocedure) History of appendectomy (situation) Documentation of past medical history (p rocedure) History of appendectomy (situation) History of appendectomy (situation) Documentation of past medical history (p rocedure) Documentation of past medical history (p rocedure) History of appendectomy (situation) History of appendectomy (situation) Documentation of past medical history (p rocedure) History of appendectomy (situation) Documentation of past medical history (p rocedure) Documentation of past medical history (p rocedure) History of appendectomy (situation) History of appendectomy (situation) Documentation of past medical history (p rocedure) History of appendectomy (situation) Documentation of past medical history (p rocedure) History of appendectomy (situation) Documentation of past medical history (p rocedure) History of appendectomy (situation) Documentation of past medical history (p rocedure) Documentation of past medical history (p rocedure) History of appendectomy (situation) Documentation of past medical history (p rocedure) History of appendectomy (situation) History of appendectomy (situation) Documentation of past medical history (p rocedure) Documentation of past medical history (p rocedure) History of appendectomy (situation) History of appendectomy (situation) Documentation of past medical history (p rocedure) History of appendectomy (situation) Documentation of past medical history (p rocedure) History of appendectomy (situation) Documentation of past medical history (p rocedure) History of appendectomy (situation) Documentation of past medical history (p rocedure) History of appendectomy (situation) Documentation of past medical history (p rocedure) History of appendectomy (situation) Documentation of past medical history (p rocedure) History of appendectomy (situation) Documentation of past medical history (p rocedure) Documentation of past medical history (p rocedure) History of appendectomy (situation) Documentation of past medical history (p rocedure) History of appendectomy (situation) Documentation of past medical history (p rocedure) History of appendectomy (situation) History of appendectomy (situation) Documentation of past medical history (p rocedure) History of appendectomy (situation) Documentation of past medical history (p rocedure) Documentation of past medical history (p rocedure) History of appendectomy (situation) Documentation of past medical history (p rocedure) History of appendectomy (situation) History of appendectomy (situation) Documentation of past medical history (p rocedure) History of appendectomy (situation) Documentation of past medical history (p rocedure) History of appendectomy (situation) Documentation of past medical history (p rocedure) History of appendectomy (situation) Documentation of past medical history (p rocedure) History of appendectomy (situation) Documentation of past medical history (p rocedure) Documentation of past medical history (p rocedure) History of appendectomy (situation) Documentation of past medical history (p rocedure) History of appendectomy (situation) History of appendectomy (situation) Documentation of past medical history (p rocedure) Documentation of past medical history (p rocedure) History of appendectomy (situation) Documentation of past medical history (p rocedure) History of appendectomy (situation) History of appendectomy (situation) Documentation of past medical history (p rocedure) History of appendectomy (situation) Documentation of past medical history (p rocedure) History of appendectomy (situation) Documentation of past medical history (p rocedure) History of appendectomy (situation) Documentation of past medical history (p rocedure) History of appendectomy (situation) Documentation of past medical history (p rocedure) History of appendectomy (situation) Documentation of past medical history (p rocedure) History of appendectomy (situation) Documentation of past medical history (p rocedure) Documentation of past medical history (p rocedure) History of appendectomy (situation) Documentation of past medical history (p rocedure) History of appendectomy (situation) History of appendectomy (situation) Documentation of past medical history (p rocedure) History of appendectomy (situation) Documentation of past medical history (p rocedure) History of appendectomy (situation) Documentation of past medical history (p rocedure) History of appendectomy (situation) Documentation of past medical history (p rocedure) History of appendectomy (situation) Documentation of past medical history (p rocedure) History of appendectomy (situation) Documentation of past medical history (p rocedure) History of appendectomy (situation) Documentation of past medical history (p rocedure) Documentation of past medical history (p rocedure) History of appendectomy (situation) Documentation of past medical history (p rocedure) History of appendectomy (situation) Documentation of past medical history (p rocedure) History of appendectomy (situation) History of appendectomy (situation) Documentation of past medical history (p rocedure) Documentation of past medical history (p rocedure) History of appendectomy (situation) History of appendectomy (situation) Documentation of past medical history (p rocedure) Documentation of past medical history (p rocedure) History of appendectomy (situation) History of appendectomy (situation) Documentation of past medical history (p rocedure) History of appendectomy (situation) Documentation of past medical history (p rocedure) History of appendectomy (situation) Documentation of past medical history (p rocedure) History of appendectomy (situation) Documentation of past medical history (p rocedure) History of appendectomy (situation) Documentation of past medical history (p rocedure) Documentation of past medical history (p rocedure) History of appendectomy (situation) History of appendectomy (situation) Documentation of past medical history (p rocedure) Documentation of past medical history (p rocedure) History of appendectomy (situation) History of appendectomy (situation) Documentation of past medical history (p rocedure) Documentation of past medical history (p rocedure) History of appendectomy (situation) History of appendectomy (situation) Documentation of past medical history (p rocedure) Documentation of past medical history (p rocedure) History of appendectomy (situation) History of appendectomy (situation) Documentation of past medical history (p rocedure) History of appendectomy (situation) Documentation of past medical history (p rocedure) History of appendectomy (situation) Documentation of past medical history (p rocedure) History of appendectomy (situation) Documentation of past medical history (p rocedure) History of appendectomy (situation) Documentation of past medical history (p rocedure) History of appendectomy (situation) Documentation of past medical history (p rocedure) History of appendectomy (situation) Documentation of past medical history (p rocedure) History of appendectomy (situation) Documentation of past medical history (p rocedure) History of appendectomy (situation) Documentation of past medical history (p rocedure) History of appendectomy (situation) Documentation of past medical history (p rocedure) History of appendectomy (situation) Documentation of past medical history (p rocedure) Documentation of past medical history (p rocedure) History of appendectomy (situation) History of appendectomy (situation) Documentation of past medical history (p rocedure) History of appendectomy (situation) Documentation of past medical history (p rocedure) History of appendectomy (situation) Documentation of past medical history (p rocedure) History of appendectomy (situation) Documentation of past medical history (p rocedure) History of appendectomy (situation) Documentation of past medical history (p rocedure) History of appendectomy (situation) Documentation of past medical history (p rocedure) History of appendectomy (situation) Documentation of past medical history (p rocedure) Documentation of past medical history (p rocedure) History of appendectomy (situation) Documentation of past medical history (p rocedure) History of appendectomy (situation) History of appendectomy (situation) Documentation of past medical history (p rocedure) History of appendectomy (situation) Documentation of past medical history (p rocedure) History of appendectomy (situation) Documentation of past medical history (p rocedure) History of appendectomy (situation) Documentation of past medical history (p rocedure) History of appendectomy (situation) Documentation of past medical history (p rocedure) History of appendectomy (situation) Documentation of past medical history (p rocedure) Documentation of past medical history (p rocedure) History of appendectomy (situation) Documentation of past medical history (p rocedure) History of appendectomy (situation) History of appendectomy (situation) Documentation of past medical history (p rocedure) Documentation of past medical history (p rocedure) History of appendectomy (situation) Documentation of past medical history (p rocedure) History of appendectomy (situation) History of appendectomy (situation) Documentation of past medical history (p rocedure) History of appendectomy (situation) Documentation of past medical history (p rocedure) History of appendectomy (situation) Documentation of past medical history (p rocedure) History of appendectomy (situation) Documentation of past medical history (p rocedure) Documentation of past medical history (p rocedure) History of appendectomy (situation) History of appendectomy (situation) Documentation of past medical history (p rocedure) Documentation of past medical history (p rocedure) History of appendectomy (situation) Documentation of past medical history (p rocedure) History of appendectomy (situation) Documentation of past medical history (p rocedure) History of appendectomy (situation) History of appendectomy (situation) Documentation of past medical history (p rocedure) History of appendectomy (situation) Documentation of past medical history (p rocedure) History of appendectomy (situation) Documentation of past medical history (p rocedure) Documentation of past medical history (p rocedure) History of appendectomy (situation) History of appendectomy (situation) Documentation of past medical history (p rocedure) Documentation of past medical history (p rocedure) History of appendectomy (situation) History of appendectomy (situation) Documentation of past medical history (p rocedure) History of appendectomy (situation) Documentation of past medical history (p rocedure) Documentation of past medical history (p rocedure) History of appendectomy (situation) History of appendectomy (situation) Documentation of past medical history (p rocedure) History of appendectomy (situation) Documentation of past medical history (p rocedure) History of appendectomy (situation) Documentation of past medical history (p rocedure) Documentation of past medical history (p rocedure) History of appendectomy (situation) History of appendectomy (situation) Documentation of past medical history (p rocedure) History of appendectomy (situation) Documentation of past medical history (p rocedure) History of appendectomy (situation) Documentation of past medical history (p rocedure) History of appendectomy (situation) Documentation of past medical history (p rocedure) Documentation of past medical history (p rocedure) History of appendectomy (situation) Documentation of past medical history (p rocedure) History of appendectomy (situation) History of appendectomy (situation) Documentation of past medical history (p rocedure) Documentation of past medical history (p rocedure) History of appendectomy (situation) History of appendectomy (situation) Documentation of past medical history (p rocedure) History of appendectomy (situation) Documentation of past medical history (p rocedure) History of appendectomy (situation) Documentation of past medical history (p rocedure) History of appendectomy (situation) Documentation of past medical history (p rocedure) History of appendectomy (situation) Documentation of past medical history (p rocedure) History of appendectomy (situation) Documentation of past medical history (p rocedure) History of appendectomy (situation) Documentation of past medical history (p rocedure) History of appendectomy (situation) Documentation of past medical history (p rocedure) Documentation of past medical history (p rocedure) History of appendectomy (situation) History of appendectomy (situation) Documentation of past medical history (p rocedure) History of appendectomy (situation) Documentation of past medical history (p rocedure) Documentation of past medical history (p rocedure) History of appendectomy (situation) History of appendectomy (situation) Documentation of past medical history (p rocedure) Documentation of past medical history (p rocedure) History of appendectomy (situation) History of appendectomy (situation) Documentation of past medical history (p rocedure) History of appendectomy (situation) Documentation of past medical history (p rocedure) History of appendectomy (situation) Documentation of past medical history (p rocedure) History of appendectomy (situation) Documentation of past medical history (p rocedure) History of appendectomy (situation) Documentation of past medical history (p rocedure) History of appendectomy (situation) Documentation of past medical history (p rocedure) History of appendectomy (situation) Documentation of past medical history (p rocedure) Documentation of past medical history (p rocedure) History of appendectomy (situation) Documentation of past medical history (p rocedure) History of appendectomy (situation) History of appendectomy (situation) Documentation of past medical history (p rocedure) Documentation of past medical history (p rocedure) History of appendectomy (situation) History of appendectomy (situation) Documentation of past medical history (p rocedure) Documentation of past medical history (p rocedure) History of appendectomy (situation) History of appendectomy (situation) Documentation of past medical history (p rocedure) History of appendectomy (situation) Documentation of past medical history (p rocedure) History of appendectomy (situation) Documentation of past medical history (p rocedure) History of appendectomy (situation) Documentation of past medical history (p rocedure) Documentation of past medical history (p rocedure) History of appendectomy (situation) Documentation of past medical history (p rocedure) History of appendectomy (situation) History of appendectomy (situation) Documentation of past medical history (p rocedure) History of appendectomy (situation) Documentation of past medical history (p rocedure) History of appendectomy (situation) Documentation of past medical history (p rocedure) History of appendectomy (situation) Documentation of past medical history (p rocedure) History of appendectomy (situation) Documentation of past medical history (p rocedure) History of appendectomy (situation) Documentation of past medical history (p rocedure) Documentation of past medical history (p rocedure) History of appendectomy (situation) Documentation of past medical history (p rocedure) History of appendectomy (situation) History of appendectomy (situation) Documentation of past medical history (p rocedure) History of appendectomy (situation) Documentation of past medical history (p rocedure) Documentation of past medical history (p rocedure) History of appendectomy (situation) History of appendectomy (situation) Documentation of past medical history (p rocedure) History of appendectomy (situation) Documentation of past medical history (p rocedure) History of appendectomy (situation) Documentation of past medical history (p rocedure) History of appendectomy (situation) Documentation of past medical history (p rocedure) History of appendectomy (situation) Documentation of past medical history (p rocedure) History of appendectomy (situation) Documentation of past medical history (p rocedure) History of appendectomy (situation) Documentation of past medical history (p rocedure) History of appendectomy (situation) Documentation of past medical history (p rocedure) Documentation of past medical history (p rocedure) History of appendectomy (situation) History of appendectomy (situation) Documentation of past medical history (p rocedure) Documentation of past medical history (p rocedure) History of appendectomy (situation) History of appendectomy (situation) Documentation of past medical history (p rocedure) Documentation of past medical history (p rocedure) History of appendectomy (situation) History of appendectomy (situation) Documentation of past medical history (p rocedure) History of appendectomy (situation) Documentation of past medical history (p rocedure) History of appendectomy (situation) Documentation of past medical history (p rocedure) Documentation of past medical history (p rocedure) History of appendectomy (situation) History of appendectomy (situation) Documentation of past medical history (p rocedure) Documentation of past medical history (p rocedure) History of appendectomy (situation) Documentation of past medical history (p rocedure) History of appendectomy (situation) History of appendectomy (situation) Documentation of past medical history (p rocedure) History of appendectomy (situation) Documentation of past medical history (p rocedure) History of appendectomy (situation) Documentation of past medical history (p rocedure) Documentation of past medical history (p rocedure) History of appendectomy (situation) Documentation of past medical history (p rocedure) History of appendectomy (situation) History of appendectomy (situation) Documentation of past medical history (p rocedure) Documentation of past medical history (p rocedure) History of appendectomy (situation) History of appendectomy (situation) Documentation of past medical history (p rocedure) History of appendectomy (situation) Documentation of past medical history (p rocedure) Documentation of past medical history (p rocedure) History of appendectomy (situation) Documentation of past medical history (p rocedure) History of appendectomy (situation) History of appendectomy (situation) Documentation of past medical history (p rocedure) History of appendectomy (situation) Documentation of past medical history (p rocedure) History of appendectomy (situation) Documentation of past medical history (p rocedure) History of appendectomy (situation) Documentation of past medical history (p rocedure) History of appendectomy (situation) Documentation of past medical history (p rocedure) History of appendectomy (situation) Documentation of past medical history (p rocedure) History of appendectomy (situation) Documentation of past medical history (p rocedure) History of appendectomy (situation) Documentation of past medical history (p rocedure) History of appendectomy (situation) Documentation of past medical history (p rocedure) History of appendectomy (situation) Documentation of past medical history (p rocedure) Documentation of past medical history (p rocedure) History of appendectomy (situation) Documentation of past medical history (p rocedure) History of appendectomy (situation) History of appendectomy (situation) Documentation of past medical history (p rocedure) Documentation of past medical history (p rocedure) History of appendectomy (situation) History of appendectomy (situation) Documentation of past medical history (p rocedure) History of appendectomy (situation) Documentation of past medical history (p rocedure) Documentation of past medical history (p rocedure) History of appendectomy (situation) Total thyroidectomy (procedure) History of appendectomy (situation) Tonsillectomy (procedure) History of appendectomy (situation) Tonsillectomy (procedure) Total thyroidectomy (procedure) Tonsillectomy (procedure) Total thyroidectomy (procedure) History of appendectomy (situation) Total thyroidectomy (procedure) Tonsillectomy (procedure) History of appendectomy (situation) Tonsillectomy (procedure) Total thyroidectomy (procedure) History of appendectomy (situation) Tonsillectomy (procedure) Total thyroidectomy (procedure) History of appendectomy (situation) Tonsillectomy (procedure) Total thyroidectomy (procedure) History of appendectomy (situation) Tonsillectomy (procedure) Total thyroidectomy (procedure) History of appendectomy (situation) Total thyroidectomy (procedure) Tonsillectomy (procedure) History of appendectomy (situation) History of appendectomy (situation) Tonsillectomy (procedure) Total thyroidectomy (procedure) History of appendectomy (situation) Tonsillectomy (procedure) Total thyroidectomy (procedure) History of appendectomy (situation) Tonsillectomy (procedure) Total thyroidectomy (procedure) History of appendectomy (situation) Tonsillectomy (procedure) Total thyroidectomy (procedure) Total thyroidectomy (procedure) History of appendectomy (situation) Tonsillectomy (procedure) History of appendectomy (situation) Total thyroidectomy (procedure) Tonsillectomy (procedure) Total thyroidectomy (procedure) History of appendectomy (situation) Tonsillectomy (procedure) History of appendectomy (situation) Total thyroidectomy (procedure) Tonsillectomy (procedure) History of appendectomy (situation) Tonsillectomy (procedure) Total thyroidectomy (procedure) History of appendectomy (situation) Tonsillectomy (procedure) Total thyroidectomy (procedure) Total thyroidectomy (procedure) Tonsillectomy (procedure) History of appendectomy (situation) Tonsillectomy (procedure) Total thyroidectomy (procedure) History of appendectomy (situation) Total thyroidectomy (procedure) History of appendectomy (situation) Tonsillectomy (procedure) Tonsillectomy (procedure) Total thyroidectomy (procedure) History of appendectomy (situation) Tonsillectomy (procedure) Total thyroidectomy (procedure) History of appendectomy (situation) Total thyroidectomy (procedure) History of appendectomy (situation) Tonsillectomy (procedure) Total thyroidectomy (procedure) History of appendectomy (situation) Tonsillectomy (procedure) History of appendectomy (situation) Tonsillectomy (procedure) Total thyroidectomy (procedure) Tonsillectomy (procedure) Total thyroidectomy (procedure) History of appendectomy (situation) History of appendectomy (situation) Tonsillectomy (procedure) Total thyroidectomy (procedure) Tonsillectomy (procedure) History of appendectomy (situation) Total thyroidectomy (procedure) History of appendectomy (situation) Tonsillectomy (procedure) Total thyroidectomy (procedure) History of appendectomy (situation) Tonsillectomy (procedure) Total thyroidectomy (procedure) Tonsillectomy (procedure) History of appendectomy (situation) Total thyroidectomy (procedure) History of appendectomy (situation) Tonsillectomy (procedure) Total thyroidectomy (procedure) Tonsillectomy (procedure) Total thyroidectomy (procedure) History of appendectomy (situation) Tonsillectomy (procedure) Total thyroidectomy (procedure) History of appendectomy (situation) History of appendectomy (situation) Tonsillectomy (procedure) Total thyroidectomy (procedure) Tonsillectomy (procedure) Total thyroidectomy (procedure) History of appendectomy (situation) Total thyroidectomy (procedure) Tonsillectomy (procedure) History of appendectomy (situation) History of appendectomy (situation) Tonsillectomy (procedure) Total thyroidectomy (procedure) History of appendectomy (situation) Tonsillectomy (procedure) Total thyroidectomy (procedure) Total thyroidectomy (procedure) History of appendectomy (situation) Tonsillectomy (procedure) Tonsillectomy (procedure) Total thyroidectomy (procedure) History of appendectomy (situation) Review Of Systems No Data Assessment 1.EczemaPhototherapy Treatment: Skin Type - II; Treatment Number - 302; Render Post-care in the Note - no; Total Body Energy - 880 mj; Comments on Previous Treatment - Room 3, no fans.; Protocol - Photochemotherapy: Mineral Oil and NBUVB; Total Body Time - 3:58min; Total Treatment Time - 3:58 min; Location (Body Touches will Override) - full body. Plan of Care Code Detail Instructions [id number] ketoconazole 2 % shampoo Apply t o damp hair, lather leave in 5 minutes and rinse out. Use when shampooing 338004 ketoconazole 2 % shampoo Apply t o damp hair, lather leave in 5 minutes and rinse out. Use when shampooing 490872 betamethasone valerate 0.1 % lot ion Apply AM and PM scalp for itch 172459 betamethasone diprop ionate 0.05 % lotion Apply Am and PM scalp itch as needed [id number] hydroxyzine HCl 10 mg tablet Duong e one pill po at supper and if needed bedtime prn itch. Do not drive or operate heavy machinery 022190 fluocinonide 0.05 % topical solu tion Apply 5-10 drops AM and PM scalp and massage in 861635 mupirocin 2 % topical ointment A pply AM and PM right cheek for 10 days crust/scab 437139 ketoconazole 2 % shampoo Apply t o damp hair, lather leave in 5 minutes and rinse out. Use when shampooing 001301 clobetasol 0.05 % topical cream Apply AM and PM rash buttocks and left knee 394898 clobetasol 0.05 % scalp solution Apply 5-10 drops to scalp itchy area and massage in 359294 clobetasol 0.05 % scalp solution Apply 5-10 drops to scalp itchy area and massage in 582944 halobetasol propiona te 0.05 % topical cream Apply AM and PM eczema left hand and foot for 2 weeks when needed. Never use face groin or underarms 106788 ciclopirox 0.77 % topical cream Apply AM and PM to tops sides bottoms of left foot and between toes for 4 weeks 881037 clobetasol 0.05 % topical cream Apply AM and PM rash buttocks and left knee 254921 ketoconazole 2 % topical cream A pply AM and PM to top, side, bottom of left foot and between toes for 4 weeks 746917 ciclopirox 0.77 % topical cream Apply AM and PM to tops sides bottoms of left foot and between toes for 4 weeks 403799 ciclopirox 0.77 % topical cream Apply AM and PM to tops sides bottoms of left foot and between toes for 4 weeks 087952 clobetasol 0.05 % topical cream Apply AM and PM rash buttocks and left knee 478523 clobetasol 0.05 % topical cream Apply AM and PM rash buttocks and left knee 5409716 Sernivo 0.05 % topical spray wit h pump Apply AM and PM scalp and massage in 567841 clobetasol 0.05 % scalp solution Apply 5-10 drops to scalp itchy area and massage in 527726 ciclopirox 0.77 % topical cream Apply AM and PM to tops, sides, bottom of feet, between toes for 4 weeks. 781276 griseofulvin microsize 500 mg ta blet Take one PO QD with food and milk 782500 griseofulvin microsize 500 mg ta blet Take one PO QD with food and milk 744629 mupirocin 2 % topical ointment A pply to surgical site on forehead twice a day x 7-14 days. 764062 mupirocin 2 % topical ointment A pply to surgical site on forehead twice a day x 7-14 days. 7314036 DermOtic Oil 0.01 % ear drops Ap ply 2-4 drops right ear for 2 weeks 0910081 DermOtic Oil 0.01 % ear drops Ap ply 2-4 drops right ear for 2 weeks 6820178 DermOtic Oil 0.01 % ear drops Ap ply 2-4 drops right ear for 2 weeks 606390 clobetasol 0.05 % topical cream Apply AM and PM rash buttocks and left knee 627752 clobetasol 0.05 % topical cream APPLY AM AND PM ECZEMA LOWER LEGS FOR UP TO 2 WEEKS WHEN NEEDED 112283 terbinafine HCl 250 mg tablet Ta ke one po qd 625370 terbinafine HCl 250 mg tablet Ta ke one po QD. Do not drink alcohol with this medication 171998 terbinafine HCl 250 mg tablet Ta ke one po QD. Do not drink alcohol with this medication 274793 ciclopirox 0.77 % topical cream Apply AM and PM left leg and buttocks for 4 weeks 585921 terbinafine HCl 250 mg tablet Ta ke one po QD. Do not drink alcohol with this medication 438200 ciclopirox 0.77 % topical cream Apply AM and PM tinea left lower leg for 4 weeks until clear 231491 clobetasol 0.05 % topical cream APPLY AM AND PM ECZEMA LOWER LEGS FOR UP TO 2 WEEKS WHEN NEEDED 205290 terbinafine HCl 250 mg tablet Ta ke one tablet by mouth once daily. 690691 griseofulvin microsize 500 mg ta blet Take one pill by mouth daily with food and milk. 987281 griseofulvin microsize 500 mg ta blet Take one PO QD with food and milk 476593 ciclopirox 0.77 % topical cream Apply AM and PM to tinea buttocks for 4 weeks 793302 griseofulvin microsize 500 mg ta blet Take one po qd with food and milk 630844 clobetasol 0.05 % topical cream APPLY AM AND PM ECZEMA BUTTOCKS FOR UP TO 2 WEEKS WHEN NEEDED 141744 clobetasol 0.05 % topical cream APPLY AM AND PM ECZEMA BACK AND BUTTOCKS FOR UP TO 2 WEEKS WHEN NEEDED 717433 betamethasone diprop ionate 0.05 % lotion Apply 5-10 drops once to twice daily to scalp massage into scalp 614424 clobetasol 0.05 % topical cream Apply am and pm eczema back buttocks 144137 betamethasone diprop ionate 0.05 % topical cream Apply am and pm dry patches upper back and buttocks Instructions No Data Social History Code Activity Start Date End Date [id number] [facility] Never smoker Sex male Sexual orientation Unspecified Gender identity Unspecified Vital Signs No data
[2025-01-11 11:18] LABS: Free T4 (Free Thyroxine) 1.31 ng/dL (0.71-1.85); Thyroid Stimulating Hormone 2.31 uIU/mL (0.32-4.0)
== END 2025-01-11 08:41 | disposition home or self-care (01) ==
LOC: HO.HMGCLDS 08:40
PROVIDERS: PCP Internal Medicine; Visit Provider Internal Medicine
DX: E78.00 Pure hypercholesterolemia, unspecified (principal)
CPT/HCPCS: 36415; 84439; 84443

== ENCOUNTER → 2025-01-20 09:33 | Outpatient (REF) | payer BC, SELFPAY ==
--- NOTE | 2025-01-20 09:36 | CA_ITS ---
Transthoracic Echocardiogram Patient (Last, First, Middle): Mario Nice E Gender: Male Date of : 1955 Age: 69 Procedure Date: 01/20/2025 Procedure Type: Transthoracic Echocardiogram Location: OP Height: 187.96 cm Weight: 117.94 kg BSA: 2.43 m2 Heart Rate: bpm BP: 140 / 72 mmHg Payroll Administrative Assistant: TO Referring MD: Ashkan Rivera MD Patcher Wood Welder: Ezra Easton MD Symptoms: I48.0 - Paroxysmal atrial fibrillation Study Quality: Fair ECG Rhythm: Sinus Conclusions: - 1. Normal LV ejection fraction 55-60% 2. Normal cardiac valvular Dopplers 3. No pericardial effusion Findings Left Ventricle Normal left ventricular size, thickness, and systolic function. The visually estimated ejection fraction is between 55-60%. Spectral Doppler is indicative of an impaired relaxation filling pattern. E/E prime ratio is between 8 and 15 consistent with indeterminate filling pressures. Wall Motion Rest Echo Findings The mid inferior and basal inferoseptal segments are hypokinetic. The basal inferior segment is akinetic. All other scored wall segments showed normal motion. Right Ventricle Normal right ventricular cavity size and systolic function. Atria The left atrium is normal in size. There is no evidence of interatrial shunt. The right atrium is normal in size. Aortic Valve Normal aortic valve structure and function. There is no aortic valve stenosis. There is no aortic valve regurgitation. Mitral Valve There is mild anterior and posterior mitral leaflet thickening. There is trace mitral valve regurgitation. There is no mitral valve stenosis. Pulmonic Valve The pulmonic valve was not well visualized. Tricuspid Valve Likely normal tricuspid valve structure and function. Tricuspid regurgitation envelope is inadequate for calculation of right ventricular systolic pressure. Normal right atrial pressure. Great Vessels The pulmonary artery was not well visualized. There is no dilatation of the ascending aorta measuring 3.40 cm. Small plaque is seen in the sino tubular ridge. Venous The inferior vena cava is normal in size and collapses greater than 50% with inspiration. Pericardium/Pleural There is no evidence of pericardial effusion. Prior Study Comparison No significant change compared to prior study dated: 07/13/2021. Measurements 2D Linear Measurements IVSd: 1.12 0.6-0.9/0.6-1.0 cm LVIDd: 4.22 3.9-5.3/4.2-5.9 cm LVIDd Index: 1.74 2.4-3.2/2.2-3.1 cm/m2 LVIDs: 3.08 2.0-3.6 cm LVPWd: 0.87 0.7-1.1 cm LA Diam: 3.30 2.7-3.8/3.0-4.0 cm LAIDs Index: 1.36 1.5-2.3 cm/m2 LV Mass: 170.42 67-162/88-224 g LV Mass Index: 70.13 43-95/49-115 g/m2 LVOT Diam: 2.30 3.0+(-)1.3 cm Mitral Valve MV Pk E: 0.44 MV PK A: 0.47 MV Decel Time: 235.00 E/A: 0.90 E'Medial: 3.26 E/E' Med: 13.40 PHT: 69.00 MVA PHT: 3.19 Decel [place]: 1.86 Aortic Valve AoV Pk Alfredo: 1.29 AoV Mn Alfredo: 0.79 AoV VTI: 0.23 AoV Pk Grad: 7.00 Aov Mn Grad: 3.00 ESTELA Cont.VTI: 3.45 LVOT LVOT Pk Alfredo: 0.90 LVOT Mn Alfredo: 0.54 LVOT VTI: 0.19 LVOT Pk Grad: 3.00 LVOT Mn Grad: 1.00 LVOT Diam: 2.30 LVOT Area: 4.15 Diastolic Function MV Pk E: 0.44 MV Pk A: 0.47 E/A: 0.90 E'Medial: 3.26 E/E' Med: 13.40 Right Ventricle TAPSE (mm): 17.50 TVS' Alfredo: 13.50 Tricuspid Valve RA Press: 3.00 Great Vessels Aorta Sinus of Valsalva: 3.56 2.0-3.5 cm Ao Asc: 3.40 2.1-3.4 cm Updated in Other Vendor System with Status of Final Ezra Easton MD electronically signed on 01/21/2025 11:03:04 AM with status of Final
--- OUTSIDE RECORDS SUMMARY | 2025-01-20 09:56 | XMS_ITS ---
Author Name Denton Ramey Address Unknown Organization [facility] Providers Care Walking Dragline Operator Name Role Phone Unavailable Primary Care Physician Unavailab le History Of Present Illness No Data Medications Medication Generic Name RxNorm Strength Strength Unit Route Dose Dose Form Frequency Date Started Date Ended Status Indication Sig betamethaso ne dipropionat e betameth asone dipropio bennett 803652 0.05 % Topica l lotio n 07/19/19 25 suspend ed Appl y Am and PM scal p itch as need ed betamethaso ne valerate betameth asone valerate 388774 0.1 % Topica l apply thin layer to skin lotio n as needed 07/20/19 25 active Appl y AM and PM scal p for itch ciclopirox ciclopir ox 445094 0.77 % Topica l cream Bid 09/07/19 20 suspend ed Appl y AM and PM to bonifacio a butt ocks for 4 week s ciclopirox ciclopir ox 737848 0.77 % Topica l cream BID 03/23/20 21 suspend ed Appl y AM and PM to tops , side s, gulshan om of feet , betw een toes for 4 week s. clobetasol clobetas ol 306699 0.05 % Topica l cream BID 05/19/20 19 suspend ed ECZEMA APPL Y AM AND PM ECZE MA BACK AND BUTT OCKS FOR UP TO 2 WEEK S WHEN NEED ED fluocinonid e fluocino nide 239984 0.05 % Topica l apply thin layer to skin solut ion as needed 05/18/20 24 active Appl y 5-10 drop s AM and PM scal p and mass age in halobetasol propionate halobeta jaiden propiona te 175042 0.05 % Topica l cream BID 08/31/19 23 suspend ed Appl y AM and PM ecze ma left hand and foot for 2 week s when need ed. Neve r use face groi n or unde rarm s ketoconazol e ketocona zole 443744 2 % Topica l cream 04/04/20 22 suspend ed Tinea Appl y AM and PM to top, side , gulshan om of left foot and betw een toes for 4 week s ketoconazol e ketocona zole 886062 2 % Topica l apply small amoun t to hair shamp oo When Shampooing 12/29/19 24 active Appl y to damp hair , lath er leav e in 5 ana amrik and rins e out. Use when sham pooi ng mupirocin mupiroci n 327093 2 % Topica l ointm ent 03/24/20 24 suspend ed Appl y AM and PM righ t rivka k for 10 days chanel t/sc ab Sernivo betameth asone dipropio bennett 6908308 0.05 % Topica l spray with pump 05/28/20 21 suspend ed Appl y AM and PM scal p and mass age in atorvastati n atorvast atin 10 mg Oral 1 table t daily active Fish Oil omega-3 fatty acids-vi tamin E Oral active griseofulvi n microsize griseofu lvin microsiz e 277225 500 mg Oral table t QD 10/07/19 21 suspend ed Tinea Take one PO QD with food and milk hydroxyzine HCl hydroxyz ine HCl 372869 10 mg Oral table t QHS 07/19/19 [...] DermOtic Oil fluocino lone acetonid e oil 6426490 0.01 % Otic (ear) drops BID 08/22/19 21 suspend ed Eczema Appl y 2-4 drop s righ t ear for 2 week s clobetasol clobetas ol 430475 0.05 % Scalp solut ion 03/23/20 21 [...] Diagnosis Date of Resolution Atopic dermatitis (disorder) 33201099(S NOMED) Diagnosis active 01/19/2025 Atopic dermatitis (disorder) 48286700(S NOMED) Diagnosis active 01/07/2025 Atopic dermatitis (disorder) 05631950(S NOMED) Diagnosis active 01/05/2025 Atopic dermatitis (disorder) 54305947(S NOMED) Diagnosis active 01/03/2025 Atopic dermatitis (disorder) 68249810(S NOMED) Diagnosis active 12/31/2024 Atopic dermatitis (disorder) 02464439(S NOMED) Diagnosis active 12/29/2024 Atopic dermatitis (disorder) 30392061(S NOMED) Diagnosis active 12/27/2024 Atopic dermatitis (disorder) 88490977(S NOMED) Diagnosis active 12/22/2024 Atopic dermatitis (disorder) 36528186(S NOMED) Diagnosis active 12/17/2024 Atopic dermatitis (disorder) 61540083(S NOMED) Diagnosis active 12/10/2024 Atopic dermatitis (disorder) 74411779(S NOMED) Diagnosis active 12/08/2024 Atopic dermatitis (disorder) 47968381(S NOMED) Diagnosis active 12/03/2024 Atopic dermatitis (disorder) 27574992(S NOMED) Diagnosis active 12/01/2024 Neoplasm of uncertain behavior of skin (disorder) 26740924(S NOMED) Diagnosis active 11/29/2024 Atopic dermatitis (disorder) 10955300(S NOMED) Diagnosis active 11/29/2024 Atopic dermatitis (disorder) 48861821(S NOMED) Diagnosis active 11/29/2024 Atopic dermatitis (disorder) 04129330(S NOMED) Diagnosis active 11/26/2024 Atopic dermatitis (disorder) 90667259(S NOMED) Diagnosis active 11/24/2024 Atopic dermatitis (disorder) 43041415(S NOMED) Diagnosis active 11/19/2024 Atopic dermatitis (disorder) 92762567(S NOMED) Diagnosis active 11/12/2024 Atopic dermatitis (disorder) 57244647(S NOMED) Diagnosis active 11/08/2024 Atopic dermatitis (disorder) 90045097(S NOMED) Diagnosis active 11/05/2024 Atopic dermatitis (disorder) 46271604(S NOMED) Diagnosis active 11/03/2024 Atopic dermatitis (disorder) 35668780(S NOMED) Diagnosis active 10/29/2024 Atopic dermatitis (disorder) 79125545(S NOMED) Diagnosis active 10/27/2024 Atopic dermatitis (disorder) 37910783(S NOMED) Diagnosis active 10/25/2024 Atopic dermatitis (disorder) 79987259(S NOMED) Diagnosis active 10/20/2024 Atopic dermatitis (disorder) 96265906(S NOMED) Diagnosis active 10/13/2024 Atopic dermatitis (disorder) 94489123(S NOMED) Diagnosis active 10/11/2024 Atopic dermatitis (disorder) 57688599(S NOMED) Diagnosis active 10/08/2024 Atopic dermatitis (disorder) 26383105(S NOMED) Diagnosis active 10/01/2024 Atopic dermatitis (disorder) 15416689(S NOMED) Diagnosis active 09/29/2024 Atopic dermatitis (disorder) 57612709(S NOMED) Diagnosis active 09/27/2024 Atopic dermatitis (disorder) 53323361(S NOMED) Diagnosis active 09/24/2024 Atopic dermatitis (disorder) 08417991(S NOMED) Diagnosis active 09/22/2024 Atopic dermatitis (disorder) 75802610(S NOMED) Diagnosis active 09/17/2024 Atopic dermatitis (disorder) 31692095(S NOMED) Diagnosis active 09/15/2024 Atopic dermatitis (disorder) 46995932(S NOMED) Diagnosis active 09/10/2024 Atopic dermatitis (disorder) 46638950(S NOMED) Diagnosis active 09/03/2024 Atopic dermatitis (disorder) 51976026(S NOMED) Diagnosis active 09/01/2024 Atopic dermatitis (disorder) 98941152(S NOMED) Diagnosis active 08/27/2024 Hemangioma of skin and subcutaneous tissue (disorder) 491541195( SNOMED) Diagnosis active 08/25/2024 Seborrheic keratosis (disorder) 838287336( SNOMED) Diagnosis active 08/25/2024 Disorder of pigmentation (disorder) 075886573( SNOMED) Diagnosis active 08/25/2024 Melanocytic nevus of trunk (disorder) 326903906( SNOMED) Diagnosis active 08/25/2024 Atopic dermatitis (disorder) 22928079(S NOMED) Diagnosis active 08/25/2024 Patient encounter status (finding) 549727363( SNOMED) Diagnosis active 08/25/2024 Atopic dermatitis (disorder) 98773996(S NOMED) Diagnosis active 08/25/2024 Atopic dermatitis (disorder) 03501254(S NOMED) Diagnosis active 08/23/2024 Atopic dermatitis (disorder) 53446611(S NOMED) Diagnosis active 08/18/2024 Atopic dermatitis (disorder) 34084809(S NOMED) Diagnosis active 08/11/2024 Atopic dermatitis (disorder) 93356364(S NOMED) Diagnosis active 08/06/2024 Atopic dermatitis (disorder) 10834860(S NOMED) Diagnosis active 08/02/2024 Atopic dermatitis (disorder) 03398087(S NOMED) Diagnosis active 07/30/2024 Atopic dermatitis (disorder) 79034009(S NOMED) Diagnosis active 07/21/2024 Atopic dermatitis (disorder) 14650329(S NOMED) Diagnosis active 07/19/2024 Disorder of pigmentation (disorder) 400606883( SNOMED) Diagnosis active 07/19/2024 Atopic dermatitis (disorder) 82473571(S NOMED) Diagnosis active 07/16/2024 Atopic dermatitis (disorder) 73906021(S NOMED) Diagnosis active 07/14/2024 Atopic dermatitis (disorder) 49656365(S NOMED) Diagnosis active 07/09/2024 Atopic dermatitis (disorder) 85500043(S NOMED) Diagnosis active 07/05/2024 Atopic dermatitis (disorder) 06568669(S NOMED) Diagnosis active 07/02/2024 Atopic dermatitis (disorder) 50109732(S NOMED) Diagnosis active 06/28/2024 Atopic dermatitis (disorder) 81533456(S NOMED) Diagnosis active 06/25/2024 Atopic dermatitis (disorder) 55694199(S NOMED) Diagnosis active 06/18/2024 Atopic dermatitis (disorder) 66227500(S NOMED) Diagnosis active 06/14/2024 Atopic dermatitis (disorder) 73819182(S NOMED) Diagnosis active 06/11/2024 Atopic dermatitis (disorder) 79516849(S NOMED) Diagnosis active 06/02/2024 Atopic dermatitis (disorder) 01992912(S NOMED) Diagnosis active 05/28/2024 Atopic dermatitis (disorder) 15764101(S NOMED) Diagnosis active 05/26/2024 Atopic dermatitis (disorder) 01376221(S NOMED) Diagnosis active 05/24/2024 Atopic dermatitis (disorder) 54790344(S NOMED) Diagnosis active 05/18/2024 Atopic dermatitis (disorder) 66143913(S NOMED) Diagnosis active 04/23/2024 Localized edema (finding) 213515116( SNOMED) Diagnosis active 03/24/2024 Atopic dermatitis (disorder) 21208336(S NOMED) Diagnosis active 01/30/2024 Hemangioma of skin and subcutaneous tissue (disorder) 665560414( SNOMED) Diagnosis active 12/29/2023 Seborrheic keratosis (disorder) 573267654( SNOMED) Diagnosis active 12/29/2023 Disorder of pigmentation (disorder) 544637923( SNOMED) Diagnosis active 12/29/2023 Melanocytic nevus of trunk (disorder) 593145697( SNOMED) Diagnosis active 12/29/2023 Atopic dermatitis (disorder) 99950873(S NOMED) Diagnosis active 12/29/2023 Seborrheic dermatitis (disorder) 73714722(S NOMED) Diagnosis active 12/29/2023 Patient encounter status (finding) 901912140( SNOMED) Diagnosis active 12/29/2023 History of malignant neoplasm of skin (situation) 468281881( SNOMED) Diagnosis active 12/29/2023 Atopic dermatitis (disorder) 14478970(S NOMED) Diagnosis active 12/19/2023 Atopic dermatitis (disorder) 11198135(S NOMED) Diagnosis active 12/12/2023 Atopic dermatitis (disorder) 66852561(S NOMED) Diagnosis active 12/05/2023 Atopic dermatitis (disorder) 83943686(S NOMED) Diagnosis active 11/21/2023 Atopic dermatitis (disorder) 14856096(S NOMED) Diagnosis active 11/14/2023 Atopic dermatitis (disorder) 82157293(S NOMED) Diagnosis active 11/07/2023 Atopic dermatitis (disorder) 34745520(S NOMED) Diagnosis active 10/31/2023 Atopic dermatitis (disorder) 38863330(S NOMED) Diagnosis active 10/24/2023 Atopic dermatitis (disorder) 15579349(S NOMED) Diagnosis active 10/17/2023 Atopic dermatitis (disorder) 72989505(S NOMED) Diagnosis active 10/10/2023 Atopic dermatitis (disorder) 07094950(S NOMED) Diagnosis active 10/03/2023 Atopic dermatitis (disorder) 02622817(S NOMED) Diagnosis active 09/26/2023 Atopic dermatitis (disorder) 99144316(S NOMED) Diagnosis active 09/05/2023 Atopic dermatitis (disorder) 13959014(S NOMED) Diagnosis active 08/29/2023 Atopic dermatitis (disorder) 63918808(S NOMED) Diagnosis active 08/22/2023 Atopic dermatitis (disorder) 41001703(S NOMED) Diagnosis active 08/15/2023 Atopic dermatitis (disorder) 41581437(S NOMED) Diagnosis active 08/08/2023 Atopic dermatitis (disorder) 36210835(S NOMED) Diagnosis active 08/01/2023 Atopic dermatitis (disorder) 75905139(S NOMED) Diagnosis active 07/25/2023 Atopic dermatitis (disorder) 39699518(S NOMED) Diagnosis active 07/18/2023 Atopic dermatitis (disorder) 41241719(S NOMED) Diagnosis active 07/11/2023 Hemangioma of skin and subcutaneous tissue (disorder) 243560915( SNOMED) Diagnosis active 07/07/2023 Seborrheic keratosis (disorder) 887609907( SNOMED) Diagnosis active 07/07/2023 Disorder of pigmentation (disorder) 953605862( SNOMED) Diagnosis active 07/07/2023 Melanocytic nevus of trunk (disorder) 770681711( SNOMED) Diagnosis active 07/07/2023 Atopic dermatitis (disorder) 76438975(S NOMED) Diagnosis active 07/07/2023 Patient encounter status (finding) 577125997( SNOMED) Diagnosis active 07/07/2023 History of malignant neoplasm of skin (situation) 315423116( SNOMED) Diagnosis active 07/07/2023 Atopic dermatitis (disorder) 42359966(S NOMED) Diagnosis active 07/04/2023 Atopic dermatitis (disorder) 58885438(S NOMED) Diagnosis active 06/30/2023 Atopic dermatitis (disorder) 57370484(S NOMED) Diagnosis active 06/27/2023 Atopic dermatitis (disorder) 32644880(S NOMED) Diagnosis active 06/20/2023 Atopic dermatitis (disorder) 51113715(S NOMED) Diagnosis active 06/17/2023 Atopic dermatitis (disorder) 51055727(S NOMED) Diagnosis active 06/13/2023 Atopic dermatitis (disorder) 75771770(S NOMED) Diagnosis active 06/09/2023 Atopic dermatitis (disorder) 57563589(S NOMED) Diagnosis active 06/06/2023 Atopic dermatitis (disorder) 67339911(S NOMED) Diagnosis active 06/02/2023 Atopic dermatitis (disorder) 35152918(S NOMED) Diagnosis active 05/30/2023 Atopic dermatitis (disorder) 39257281(S NOMED) Diagnosis active 05/26/2023 Atopic dermatitis (disorder) 60107208(S NOMED) Diagnosis active 05/23/2023 Atopic dermatitis (disorder) 34610468(S NOMED) Diagnosis active 05/14/2023 Atopic dermatitis (disorder) 82054501(S NOMED) Diagnosis active 05/12/2023 Atopic dermatitis (disorder) 72699515(S NOMED) Diagnosis active 05/09/2023 Atopic dermatitis (disorder) 96869397(S NOMED) Diagnosis active 05/05/2023 Atopic dermatitis (disorder) 23845937(S NOMED) Diagnosis active 05/02/2023 Atopic dermatitis (disorder) 38924429(S NOMED) Diagnosis active 04/28/2023 Atopic dermatitis (disorder) 24592796(S NOMED) Diagnosis active 04/25/2023 Atopic dermatitis (disorder) 64260281(S NOMED) Diagnosis active 04/18/2023 Atopic dermatitis (disorder) 82098532(S NOMED) Diagnosis active 04/14/2023 Atopic dermatitis (disorder) 15116353(S NOMED) Diagnosis active 04/11/2023 Atopic dermatitis (disorder) 95881517(S NOMED) Diagnosis active 04/07/2023 Atopic dermatitis (disorder) 19159335(S NOMED) Diagnosis active 04/04/2023 Atopic dermatitis (disorder) 26411519(S NOMED) Diagnosis active 03/31/2023 Atopic dermatitis (disorder) 30338251(S NOMED) Diagnosis active 03/28/2023 Surgical follow-up (finding) 270684914( SNOMED) Diagnosis active 03/25/2023 Basal cell carcinoma of face (disorder) 718483116( SNOMED) Diagnosis active 03/18/2023 Basal cell carcinoma of face (disorder) 133590141( SNOMED) Diagnosis active 03/05/2023 Neoplasm of uncertain behavior of skin (disorder) 45258683(S NOMED) Diagnosis active 03/05/2023 Atopic dermatitis (disorder) 06791141(S NOMED) Diagnosis active 03/03/2023 Atopic dermatitis (disorder) 87990780(S NOMED) Diagnosis active 02/28/2023 Atopic dermatitis (disorder) 87068112(S NOMED) Diagnosis active 02/20/2023 Atopic dermatitis (disorder) 28071694(S NOMED) Diagnosis active 02/17/2023 Atopic dermatitis (disorder) 91902115(S NOMED) Diagnosis active 02/14/2023 Atopic dermatitis (disorder) 20807428(S NOMED) Diagnosis active 02/10/2023 Atopic dermatitis (disorder) 06305080(S NOMED) Diagnosis active 02/07/2023 Atopic dermatitis (disorder) 37986226(S NOMED) Diagnosis active 02/03/2023 Atopic dermatitis (disorder) 54688325(S NOMED) Diagnosis active 01/31/2023 Atopic dermatitis (disorder) 05561119(S NOMED) Diagnosis active 01/24/2023 Neoplasm of uncertain behavior of skin (disorder) 27819818(S NOMED) Diagnosis active 01/20/2023 Atopic dermatitis (disorder) 22924600(S NOMED) Diagnosis active 01/20/2023 Atopic dermatitis (disorder) 45353824(S NOMED) Diagnosis active 01/17/2023 Atopic dermatitis (disorder) 37826060(S NOMED) Diagnosis active 01/10/2023 Atopic dermatitis (disorder) 74406722(S NOMED) Diagnosis active 01/06/2023 Atopic dermatitis (disorder) 41927170(S NOMED) Diagnosis active 01/03/2023 Atopic dermatitis (disorder) 05246301(S NOMED) Diagnosis active 12/27/2022 Atopic dermatitis (disorder) 10648577(S NOMED) Diagnosis active 12/20/2022 Atopic dermatitis (disorder) 68539014(S NOMED) Diagnosis active 12/16/2022 Atopic dermatitis (disorder) 19349691(S NOMED) Diagnosis active 12/13/2022 Atopic dermatitis (disorder) 26818542(S NOMED) Diagnosis active 12/06/2022 Atopic dermatitis (disorder) 60264216(S NOMED) Diagnosis active 12/02/2022 Atopic dermatitis (disorder) 09689494(S NOMED) Diagnosis active 11/29/2022 Atopic dermatitis (disorder) 83224477(S NOMED) Diagnosis active 11/25/2022 Atopic dermatitis (disorder) 83083662(S NOMED) Diagnosis active 11/19/2022 Atopic dermatitis (disorder) 55128307(S NOMED) Diagnosis active 11/15/2022 Atopic dermatitis (disorder) 12348675(S NOMED) Diagnosis active 11/11/2022 Atopic dermatitis (disorder) 70993832(S NOMED) Diagnosis active 11/08/2022 Atopic dermatitis (disorder) 01554120(S NOMED) Diagnosis active 11/04/2022 Atopic dermatitis (disorder) 81895553(S NOMED) Diagnosis active 11/01/2022 Atopic dermatitis (disorder) 44081551(S NOMED) Diagnosis active 10/28/2022 Atopic dermatitis (disorder) 78195504(S NOMED) Diagnosis active 10/25/2022 Neoplasm of uncertain behavior of skin (disorder) 97913476(S NOMED) Diagnosis active 10/21/2022 Atopic dermatitis (disorder) 94969367(S NOMED) Diagnosis active 10/18/2022 Atopic dermatitis (disorder) 93874709(S NOMED) Diagnosis active 10/18/2022 Atopic dermatitis (disorder) 49940363(S NOMED) Diagnosis active 09/27/2022 Atopic dermatitis (disorder) 72487822(S NOMED) Diagnosis active 09/23/2022 Atopic dermatitis (disorder) 01804659(S NOMED) Diagnosis active 09/20/2022 Atopic dermatitis (disorder) 23026503(S NOMED) Diagnosis active 09/16/2022 Atopic dermatitis (disorder) 31135261(S NOMED) Diagnosis active 09/13/2022 Atopic dermatitis (disorder) 25261050(S NOMED) Diagnosis active 09/09/2022 Atopic dermatitis (disorder) 05034695(S NOMED) Diagnosis active 09/06/2022 Atopic dermatitis (disorder) 58290996(S NOMED) Diagnosis active 09/02/2022 Atopic dermatitis (disorder) 97749582(S NOMED) Diagnosis active 08/30/2022 Atopic dermatitis (disorder) 24074202(S NOMED) Diagnosis active 08/30/2022 Atopic dermatitis (disorder) 47376814(S NOMED) Diagnosis active 08/19/2022 Atopic dermatitis (disorder) 97084967(S NOMED) Diagnosis active 08/16/2022 Atopic dermatitis (disorder) 62943583(S NOMED) Diagnosis active 08/13/2022 Atopic dermatitis (disorder) 57656453(S NOMED) Diagnosis active 08/09/2022 Atopic dermatitis (disorder) 32682069(S NOMED) Diagnosis active 08/05/2022 Tinea pedis (disorder) 1818545(SN OMED) Diagnosis active 08/05/2022 Atopic dermatitis (disorder) 16603495(S NOMED) Diagnosis active 08/02/2022 Atopic dermatitis (disorder) 40346414(S NOMED) Diagnosis active 07/26/2022 Atopic dermatitis (disorder) 83866162(S NOMED) Diagnosis active 07/19/2022 Atopic dermatitis (disorder) 29032904(S NOMED) Diagnosis active 07/12/2022 Atopic dermatitis (disorder) 26594490(S NOMED) Diagnosis active 07/05/2022 Atopic dermatitis (disorder) 20321371(S NOMED) Diagnosis active 06/28/2022 Atopic dermatitis (disorder) 76380504(S NOMED) Diagnosis active 06/21/2022 Atopic dermatitis (disorder) 08487149(S NOMED) Diagnosis active 06/14/2022 Atopic dermatitis (disorder) 50591488(S NOMED) Diagnosis active 06/07/2022 Atopic dermatitis (disorder) 70565489(S NOMED) Diagnosis active 05/31/2022 Atopic dermatitis (disorder) 22827041(S NOMED) Diagnosis active 05/03/2022 Atopic dermatitis (disorder) 19929189(S NOMED) Diagnosis active 04/26/2022 Atopic dermatitis (disorder) 13195043(S NOMED) Diagnosis active 04/19/2022 Atopic dermatitis (disorder) 93034206(S NOMED) Diagnosis active 04/12/2022 Atopic dermatitis (disorder) 44885488(S NOMED) Diagnosis active 04/05/2022 Atopic dermatitis (disorder) 81929028(S NOMED) Diagnosis active 04/03/2022 Tinea pedis (disorder) 1325117(SN OMED) Diagnosis active 04/03/2022 Atopic dermatitis (disorder) 49597965(S NOMED) Diagnosis active 03/29/2022 Atopic dermatitis (disorder) 67457644(S NOMED) Diagnosis active 03/22/2022 Atopic dermatitis (disorder) 44897357(S NOMED) Diagnosis active 03/15/2022 Atopic dermatitis (disorder) 85241199(S NOMED) Diagnosis active 2022 Atopic dermatitis (disorder) 74733545(S NOMED) Diagnosis active 03/01/2022 Atopic dermatitis (disorder) 57725873(S NOMED) Diagnosis active 02/22/2022 Atopic dermatitis (disorder) 82920241(S NOMED) Diagnosis active 02/15/2022 Atopic dermatitis (disorder) 33363886(S NOMED) Diagnosis active 02/08/2022 Atopic dermatitis (disorder) 47480042(S NOMED) Diagnosis active 02/01/2022 Atopic dermatitis (disorder) 58123413(S NOMED) Diagnosis active 01/18/2022 Atopic dermatitis (disorder) 98368307(S NOMED) Diagnosis active 01/11/2022 Atopic dermatitis (disorder) 41662595(S NOMED) Diagnosis active 01/04/2022 Atopic dermatitis (disorder) 18018888(S NOMED) Diagnosis active 12/31/2021 Atopic dermatitis (disorder) 39775197(S NOMED) Diagnosis active 12/28/2021 Atopic dermatitis (disorder) 79751947(S NOMED) Diagnosis active 12/21/2021 Atopic dermatitis (disorder) 26560484(S NOMED) Diagnosis active 12/14/2021 Atopic dermatitis (disorder) 58505659(S NOMED) Diagnosis active 12/07/2021 Atopic dermatitis (disorder) 59375934(S NOMED) Diagnosis active 11/30/2021 Atopic dermatitis (disorder) 52425863(S NOMED) Diagnosis active 11/23/2021 Atopic dermatitis (disorder) 88666702(S NOMED) Diagnosis active 11/20/2021 Atopic dermatitis (disorder) 52534482(S NOMED) Diagnosis active 10/31/2021 Atopic dermatitis (disorder) 53323192(S NOMED) Diagnosis active 10/26/2021 Atopic dermatitis (disorder) 69917364(S NOMED) Diagnosis active 10/19/2021 Atopic dermatitis (disorder) 76335362(S NOMED) Diagnosis active 10/12/2021 Atopic dermatitis (disorder) 45556041(S NOMED) Diagnosis active 10/05/2021 Atopic dermatitis (disorder) 18493858(S NOMED) Diagnosis active 09/28/2021 Atopic dermatitis (disorder) 50666026(S NOMED) Diagnosis active 09/21/2021 Psoriasis vulgaris (disorder) 477903778( SNOMED) Diagnosis active 09/14/2021 Atopic dermatitis (disorder) 43468835(S NOMED) Diagnosis active 09/07/2021 Atopic dermatitis (disorder) 26403204(S NOMED) Diagnosis active 08/31/2021 Psoriasis vulgaris (disorder) 752612358( SNOMED) Diagnosis active 08/24/2021 Atopic dermatitis (disorder) 10660146(S NOMED) Diagnosis active 08/24/2021 Psoriasis vulgaris (disorder) 223494167( SNOMED) Diagnosis active 08/10/2021 Psoriasis vulgaris (disorder) 589557339( SNOMED) Diagnosis active 08/03/2021 Atopic dermatitis (disorder) 59594296(S NOMED) Diagnosis active 05/28/2021 Tinea pedis (disorder) 2699039(SN OMED) Diagnosis active 05/28/2021 Itching of skin (finding) 032167484( SNOMED) Diagnosis active 05/28/2021 Atopic dermatitis (disorder) 15630432(S NOMED) Diagnosis active 05/10/2021 Atopic dermatitis (disorder) 73901640(S NOMED) Diagnosis active 04/20/2021 Atopic dermatitis (disorder) 62020583(S NOMED) Diagnosis active 04/06/2021 Atopic dermatitis (disorder) 20146345(S NOMED) Diagnosis active 03/30/2021 Atopic dermatitis (disorder) 79486550(S NOMED) Diagnosis active 03/23/2021 Atopic dermatitis (disorder) 60916548(S NOMED) Diagnosis active 03/23/2021 Tinea pedis (disorder) 3899034(SN OMED) Diagnosis active 03/23/2021 Tinea corporis (disorder) 22521325(S NOMED) Diagnosis active 03/23/2021 Itching of skin (finding) 613173932( SNOMED) Diagnosis active 03/23/2021 Atopic dermatitis (disorder) 66010238(S NOMED) Diagnosis active 03/19/2021 Atopic dermatitis (disorder) 59552389(S NOMED) Diagnosis active 03/16/2021 Atopic dermatitis (disorder) 57503256(S NOMED) Diagnosis active 03/12/2021 Atopic dermatitis (disorder) 94535493(S NOMED) Diagnosis active 03/09/2021 Atopic dermatitis (disorder) 19629671(S NOMED) Diagnosis active 03/05/2021 Atopic dermatitis (disorder) 41340644(S NOMED) Diagnosis active 03/02/2021 Atopic dermatitis (disorder) 04312665(S NOMED) Diagnosis active 02/19/2021 Atopic dermatitis (disorder) 17418221(S NOMED) Diagnosis active 02/16/2021 Itching of skin (finding) 541738871( SNOMED) Diagnosis active 02/02/2021 Atopic dermatitis (disorder) 52663800(S NOMED) Diagnosis active 02/02/2021 Atopic dermatitis (disorder) 71903386(S NOMED) Diagnosis active 01/29/2021 Psoriasis vulgaris (disorder) 158332608( SNOMED) Diagnosis active 01/26/2021 Atopic dermatitis (disorder) 57722404(S NOMED) Diagnosis active 01/22/2021 Atopic dermatitis (disorder) 49928105(S NOMED) Diagnosis active 01/19/2021 Atopic dermatitis (disorder) 42764933(S NOMED) Diagnosis active 01/15/2021 Atopic dermatitis (disorder) 50878085(S NOMED) Diagnosis active 01/12/2021 Atopic dermatitis (disorder) 99155363(S NOMED) Diagnosis active 01/08/2021 Atopic dermatitis (disorder) 69807687(S NOMED) Diagnosis active 01/05/2021 Atopic dermatitis (disorder) 18834818(S NOMED) Diagnosis active 01/01/2021 Atopic dermatitis (disorder) 54908143(S NOMED) Diagnosis active 12/29/2020 Atopic dermatitis (disorder) 62398882(S NOMED) Diagnosis active 12/22/2020 Atopic dermatitis (disorder) 57473199(S NOMED) Diagnosis active 12/18/2020 Psoriasis vulgaris (disorder) 397823613( SNOMED) Diagnosis active 12/15/2020 Atopic dermatitis (disorder) 32575026(S NOMED) Diagnosis active 12/11/2020 Atopic dermatitis (disorder) 25335512(S NOMED) Diagnosis active 12/08/2020 Atopic dermatitis (disorder) 28931849(S NOMED) Diagnosis active 12/08/2020 Tinea pedis (disorder) 5451565(SN OMED) Diagnosis active 12/08/2020 Tinea corporis (disorder) 48232664(S NOMED) Diagnosis active 12/08/2020 Atopic dermatitis (disorder) 25269011(S NOMED) Diagnosis active 12/04/2020 Atopic dermatitis (disorder) 12380518(S NOMED) Diagnosis active 12/01/2020 Atopic dermatitis (disorder) 57952736(S NOMED) Diagnosis active 11/27/2020 Atopic dermatitis (disorder) 74537359(S NOMED) Diagnosis active 11/24/2020 Atopic dermatitis (disorder) 71321926(S NOMED) Diagnosis active 11/22/2020 Atopic dermatitis (disorder) 88735549(S NOMED) Diagnosis active 11/17/2020 Atopic dermatitis (disorder) 71872953(S NOMED) Diagnosis active 11/13/2020 Atopic dermatitis (disorder) 08456203(S NOMED) Diagnosis active 11/10/2020 Atopic dermatitis (disorder) 94059755(S NOMED) Diagnosis active 11/06/2020 Atopic dermatitis (disorder) 20528067(S NOMED) Diagnosis active 11/03/2020 Atopic dermatitis (disorder) 49043113(S NOMED) Diagnosis active 10/30/2020 Atopic dermatitis (disorder) 18564961(S NOMED) Diagnosis active 10/27/2020 Atopic dermatitis (disorder) 59788405(S NOMED) Diagnosis active 10/23/2020 Atopic dermatitis (disorder) 55747090(S NOMED) Diagnosis active 10/20/2020 Atopic dermatitis (disorder) 83562669(S NOMED) Diagnosis active 10/16/2020 Surgical follow-up (finding) 592177397( SNOMED) Diagnosis active 10/09/2020 Tinea pedis (disorder) 1777569(SN OMED) Diagnosis active 10/06/2020 Tinea corporis (disorder) 82153724(S NOMED) Diagnosis active 10/06/2020 Follicular cysts of skin and subcutaneous tissue (disorder) 130541129( SNOMED) Diagnosis active 09/27/2020 Atopic dermatitis (disorder) 06973757(S NOMED) Diagnosis active 09/25/2020 Atopic dermatitis (disorder) 30240448(S NOMED) Diagnosis active 09/18/2020 Psoriasis vulgaris (disorder) 706643356( SNOMED) Diagnosis active 09/15/2020 Atopic dermatitis (disorder) 51779254(S NOMED) Diagnosis active 09/11/2020 Psoriasis vulgaris (disorder) 927244004( SNOMED) Diagnosis active 09/08/2020 Intrinsic (allergic) eczema [...] Diagnosis active 04/23/2019 Disorder of skin (disorder) 60806961(S NOMED) Diagnosis active 12/29/2018 Atopic dermatitis (disorder) 13001499(S NOMED) Diagnosis active 12/01/2018 Atopic dermatitis (disorder) 13593373(S NOMED) Diagnosis active 11/03/2018 Atopic dermatitis (disorder) 38933470(S NOMED) Diagnosis active 01/26/2018 Itching of skin (finding) 074459097( SNOMED) Diagnosis active 10/10/2017 Melanocytic nevus of trunk (disorder) 322624076( SNOMED) Diagnosis active 08/22/2017 Benign neoplasm of skin of upper limb (disorder) 83292485(S NOMED) Diagnosis active 08/08/2017 Itching of skin (finding) 668737814( SNOMED) Diagnosis active 07/29/2017 Benign neoplasm of skin of trunk (disorder) 06677423(S NOMED) Diagnosis active 07/18/2017 Atopic dermatitis (disorder) 21434997(S NOMED) Diagnosis active 06/18/2017 Atopic dermatitis (disorder) 97248877(S NOMED) Diagnosis active 06/18/2017 Atopic dermatitis (disorder) 35198000(S NOMED) Diagnosis active 05/09/2017 Tinea corporis (disorder) 21705140(S NOMED) Diagnosis active 02/07/2017 Atopic dermatitis (disorder) 06658187(S NOMED) Diagnosis active 12/10/2016 Atopic dermatitis (disorder) 80118848(S NOMED) Diagnosis active 11/25/2016 Itching of skin (finding) 886802142( SNOMED) Diagnosis active 10/23/2016 Tinea corporis (disorder) 80615351(S NOMED) Diagnosis active 09/09/2016 Tinea corporis (disorder) 35340028(S NOMED) Diagnosis active 07/29/2016 Tinea corporis (disorder) 67339842(S NOMED) Diagnosis active 07/03/2016 Atopic dermatitis (disorder) 94703942(S NOMED) Diagnosis active 05/20/2016 Atopic dermatitis (disorder) 85345775(S NOMED) Diagnosis active 02/28/2016 Herpes labialis (disorder) 1049339(SN OMED) Diagnosis active 12/20/2015 Atopic dermatitis (disorder) 24572403(S NOMED) Diagnosis active 09/07/2015 Atopic dermatitis (disorder) 44701968(S NOMED) Diagnosis active 05/31/2015 Benign neoplasm of skin of trunk (disorder) 24551897(S NOMED) Diagnosis active 05/30/2015 Contact dermatitis caused by solar radiation (disorder) 32420678(S NOMED) Diagnosis active 01/04/2015 Dermatophytosis of the body (disorder) 358888793( SNOMED) Diagnosis active 10/25/2014 Neoplasm of uncertain behavior of skin (disorder) 44002021(S NOMED) Diagnosis active 05/31/2014 History of clinical finding in subject (situation) 086537454( SNOMED) Problem active Arthritis (disorder) 5920180(SN OMED) Problem active Increased blood pressure (finding) 42033962(S NOMED) Problem active Hypercholesterolemia (disorder) 30918122(S NOMED) Problem active Atrial fibrillation (disorder) 40507106(S NOMED) Problem active Secondary restless legs syndrome (disorder) 836258837( SNOMED) Problem active Eczema (disorder) 70626132(S NOMED) Problem active Psoriasis (disorder) 7093468(SN OMED) Problem active Basal cell carcinoma of skin (disorder) 678803553( SNOMED) Problem active Diverticulitis (morphologic abnormality) 46388095(S NOMED) Problem active Hypothyroidism (disorder) 05355200(S NOMED) Problem active Malignant tumor of thyroid gland (disorder) 168291983( SNOMED) Problem active Results No data Encounters Service provided at [address], [address], [place], [place] [id number]. Office phonenumber is [phone]. Office fax number is [phone]. Encounter Diagnosis Location Date / Time Type Eczema (L20.89) [place] 01/19/2025 15:30:00 [place] N I Reason For Referral No data [...] of skin (procedure) 023 12:00 am UTC Mohs surgery (procedure) 03/18/2023 12:0 0 am UTC Shave biopsy (procedure) 03/05/2023 12:0 0 am UTC Shave biopsy (procedure) 01/20/2023 12:0 0 am UTC Shave biopsy (procedure) 10/21/2022 12:0 0 am UTC Excision (procedure) 09/27/2020 12:00 am UTC History of appendectomy (situation) Documentation of past [...] Skin Type - II; Treatment Number - 303; Render Post-care in the Note - no; Total Body Energy - 880 mj; Comments on Previous Treatment - Room 3, no fans.; Protocol - Photochemotherapy: Mineral Oil and NBUVB; Total Body Time - 3:58min; Total Treatment Time - 3:58 min; Location (Body Touches will Override) - full body. Plan of Care Code Detail Instructions 174904 ketoconazole 2 % shampoo Apply t o damp hair, lather leave in 5 minutes and rinse out. Use when shampooing 862734 ketoconazole 2 % shampoo Apply t o damp hair, lather leave in 5 minutes and rinse out. Use when shampooing 098282 betamethasone valerate 0.1 % lot ion Apply AM and PM scalp for itch 651482 betamethasone diprop ionate 0.05 % lotion Apply Am and PM scalp itch as needed 565253 hydroxyzine HCl 10 mg tablet Duong e one pill po at supper and if needed bedtime prn itch. Do not drive or operate heavy machinery 972764 fluocinonide 0.05 % topical solu tion Apply 5-10 drops AM and PM scalp and massage in 747227 mupirocin 2 % topical ointment A pply AM and PM right cheek for 10 days crust/scab 975633 ketoconazole 2 % shampoo Apply t o damp hair, lather leave in 5 minutes and rinse out. Use when shampooing 653295 clobetasol 0.05 % topical cream Apply AM and PM rash buttocks and left knee 571333 clobetasol 0.05 % scalp solution Apply 5-10 drops to scalp itchy area and massage in 278409 clobetasol 0.05 % scalp solution Apply 5-10 drops to scalp itchy area and massage in 375518 halobetasol propiona te 0.05 % topical cream Apply AM and PM eczema left hand and foot for 2 weeks when needed. Never use face groin or underarms 554588 ciclopirox 0.77 % topical cream Apply AM and PM to tops sides bottoms of left foot and between toes for 4 weeks 974585 clobetasol 0.05 % topical cream Apply AM and PM rash buttocks and left knee 017382 ketoconazole 2 % topical cream A pply AM and PM to top, side, bottom of left foot and between toes for 4 weeks 245715 ciclopirox 0.77 % topical cream Apply AM and PM to tops sides bottoms of left foot and between toes for 4 weeks 011918 ciclopirox 0.77 % topical cream Apply AM and PM to tops sides bottoms of left foot and between toes for 4 weeks 072497 clobetasol 0.05 % topical cream Apply AM and PM rash buttocks and left knee 044731 clobetasol 0.05 % topical cream Apply AM and PM rash buttocks and left knee 6694722 Sernivo 0.05 % topical spray wit h pump Apply AM and PM scalp and massage in 481521 clobetasol 0.05 % scalp solution Apply 5-10 drops to scalp itchy area and massage in 133492 ciclopirox 0.77 % topical cream Apply AM and PM to tops, sides, bottom of feet, between toes for 4 weeks. 723780 griseofulvin microsize 500 mg ta blet Take one PO QD with food and milk 831591 griseofulvin microsize 500 mg ta blet Take one PO QD with food and milk 054763 mupirocin 2 % topical ointment A pply to surgical site on forehead twice a day x 7-14 days. 460378 mupirocin 2 % topical ointment A pply to surgical site on forehead twice a day x 7-14 days. 7571751 DermOtic Oil 0.01 % ear drops Ap ply 2-4 drops right ear for 2 weeks 7821605 DermOtic Oil 0.01 % ear drops Ap ply 2-4 drops right ear for 2 weeks 6642350 DermOtic Oil 0.01 % ear drops Ap ply 2-4 drops right ear for 2 weeks 695667 clobetasol 0.05 % topical cream Apply AM and PM rash buttocks and left knee 987117 clobetasol 0.05 % topical cream APPLY AM AND PM ECZEMA LOWER LEGS FOR UP TO 2 WEEKS WHEN NEEDED 936614 terbinafine HCl 250 mg tablet Ta ke one po qd 408739 terbinafine HCl 250 mg tablet Ta ke one po QD. Do not drink alcohol with this medication 505374 terbinafine HCl 250 mg tablet Ta ke one po QD. Do not drink alcohol with this medication 793053 ciclopirox 0.77 % topical cream Apply AM and PM left leg and buttocks for 4 weeks 764020 terbinafine HCl 250 mg tablet Ta ke one po QD. Do not drink alcohol with this medication 556838 ciclopirox 0.77 % topical cream Apply AM and PM tinea left lower leg for 4 weeks until clear 328143 clobetasol 0.05 % topical cream APPLY AM AND PM ECZEMA LOWER LEGS FOR UP TO 2 WEEKS WHEN NEEDED 407941 terbinafine HCl 250 mg tablet Ta ke one tablet by mouth once daily. 770959 griseofulvin microsize 500 mg ta blet Take one pill by mouth daily with food and milk. 193515 griseofulvin microsize 500 mg ta blet Take one PO QD with food and milk 995144 ciclopirox 0.77 % topical cream Apply AM and PM to tinea buttocks for 4 weeks 041015 griseofulvin microsize 500 mg ta blet Take one po qd with food and milk 843685 clobetasol 0.05 % topical cream APPLY AM AND PM ECZEMA BUTTOCKS FOR UP TO 2 WEEKS WHEN NEEDED 046182 clobetasol 0.05 % topical cream APPLY AM AND PM ECZEMA BACK AND BUTTOCKS FOR UP TO 2 WEEKS WHEN NEEDED 854387 betamethasone diprop ionate 0.05 % lotion Apply 5-10 drops once to twice daily to scalp massage into scalp 683241 clobetasol 0.05 % topical cream Apply am and pm eczema back buttocks 934531 betamethasone diprop ionate 0.05 % topical cream Apply am and pm dry patches upper back and buttocks Instructions No Data Social History Code Activity Start Date End Date [id number] (SNOMED) Never smoker Sex male Sexual orientation Unspecified Gender identity Unspecified Vital Signs No data
== END ==
LOC: HO.CARD 09:33
PROVIDERS: PCP Internal Medicine; Visit Provider Internal Medicine Cardiovascular Disease
DX: I48.0 Paroxysmal atrial fibrillation (principal)
CPT/HCPCS: 93306

== ENCOUNTER → 2025-01-20 09:36 | Outpatient (BNV) | payer BC, SELFPAY | PROVIDERS: PCP Internal Medicine; Visit Provider Internal Medicine Cardiovascular Disease | DX: I48.0 Paroxysmal atrial fibrillation (principal) | CPT/HCPCS: 93306 ==

== ENCOUNTER 2025-01-20 14:47 | Outpatient (AMB) | payer BC, SELFPAY ==
--- OUTSIDE RECORDS SUMMARY | 2025-01-20 04:55 | XMS_ITS | Continuity of Care Document ---
Author Name [facility] Organization [facility] Care Team Providers Care Merchant Patroller Name Role Phone [facility] Unavailable Unavailable Problems Combined list of problems from Department of Defense and Veterans Affairs facilities. It does not include entries that were removed or entered in error. Problem Status Onset Date Problem Type Date of Resolution Comments Source Adult screening status Active Condition Jul 07, 2024 Entered By: ABDIRAHMAN LAKE Comment: 08/02/21 PSA wnl [facility] [place] [facility] Atrial fibrillation Active Condition Jul 07, 2024 Entered By: ABDIRAHMAN [place]KE [facility] Benign essential hypertension Active Condition [facility] [place] [facility] Colour blindness Active Condition [facility] Dermatophytosis Groin(Tinea Cruris) Active Condition [facility] GERD - Gastro-esophageal reflux disease Active Condition Aug 12, 2024 Entered By: ABDIRAHMAN LAKE Comment: egd 04/05 [place] Gout Active Condition [facility] [facility] H/O: alcoholism Active Condition Aug 12, 2024 Entered By: ABDIRAHMAN LAKE Comment: quit 2021 [facility] [place] [facility] H/O: malignant neoplasm of skin Active Condition Jan 24 Entered By: GREGG HARMON Comment: path report from 2022 to scan [place] Hepatic cyst Active Condition Jul 07, 2024 Entered By: ABDIRAHMAN LAKE Comment: found on CT scan 2024 Entered By: ABDIRAHMAN LAKE Comment: hx excision [facility] [place] [facility] History of malignant neoplasm of thyroid Active Condition Sep 14, 2022 Entered By: GREGG HARMON Comment: papillary w/mets s/p thyroidectomy and radioiodine 07/2022 [place] History of pulmonary embolus Active Condition Jul 07 Entered By: ABDIRAHMAN LAKE [facility]: [facility] Hyperlipidemia Active Condition [place] Hypothyroidism Active Condition Jun Entered By: ABDIRAHMAN LAKE Comment: managed by EndoJul 07, 2024 Entered By: ABDIRAHMAN LAKE Comment: secondary d/t hx thyroid CA [facility] Intrinsic Eczema Active Condition [facility] Long-term current use of anticoagulant Active Condition Jul 07, 2024 Entered By: ABDIRAHMAN LAKE Comment: Xarelto [facility] Lumbar radiculopathy Active Condition [facility] Neurofibroma Active Condition [facility] Obesity Active Condition Jul 07 Entered By: ABDIRAHMAN LAKE Comment: 04/06/24 BMI 33Fe2024 Entered By: ABDIRAHMAN LAKE Comment: 07/07/24 BMI 34 [facility] GLENN - Obstructive sleep apnea Active Condition Jul 21, 2022 Entered By: GREGG HARMON Comment: sleep study 2024 Entered By: ABDIRAHMAN LAKE Comment: cpap [place] Osteoarthritis of multiple joints Active Condition [place] Peripheral neuropathy Active Condition [facility] Psoriasis Active Condition [facility] Screening for malignant neoplasm of colon done Active Condition Jan 19, 2008 Entered By: GREGG HARMON Comment: [facility] 2006 [facility] Entered By: ABDIRAHMAN LAKE Comment: approx 2016 colo - tubular adenomaFeb 2024 Entered By: ABDIRAHMAN LAKE Comment: 2021 colo - normal, repeat 10 years [place] Thoracogenic scoliosis Active Condition [place] Under care of multiple providers Active Condition Aug 12 025 Entered By: ABDIRAHMAN LAKE Comment: community PCP Dr. Vera 2024 Entered By: ABDIRAHMAN LAKE Comment: cardiology Dr. Gutierres 2024 Entered By: ABDIRAHMAN LAKE Comment: urology Dr. Rob 2024 Entered By: ABDIRAHMAN LAKE Comment: nephrology Dr. Teran 2024 Entered By: ABDIRAHMAN LAKE Comment: EndoFeb 2024 Entered By: ABDIRAHMAN LAKE Comment: Vascular surgery - [facility] Varicose veins Active Condition [facility] Back Strain (ICD-9-CM 847.9/729.9) Inactive Condition 07/07/2024 [facility] Cellulitis and abscess of foot, except toes (ICD-9-CM 682.7) Inactive Condition 07/07/2024 [facility] Dermatitis or Eczema * (ICD-9-CM 692.9) Inactive Condition 07/07/2024 [place] Kidney stone Inactive Condition 07/07/2024Aug Entered By: GREGG HARMON Comment: see cat [facility] from 07/2020 [place] Ulcer of other part of Foot (ICD-9-CM 707.15) Inactive Condition 07/07/2024 [facility] Diagnosis: ICD-10-CM Y93.42 Activity, yoga Active Diagnosis [facility] Diagnosis: ICD-10-CM M54.50 Low back pain, unspecified Active Diagnosis [facility] Diagnosis: ICD-10-CM G47.33 Obstructive sleep apnea (adult) (pediatric) Active Diagnosis [facility] (6[facility]) Diagnosis: ICD-10-CM Z79.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 of 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 Active Diagnosis [place] Diagnosis: ICD-10-CM E03.9 Hypothyroidism, unspecified Active Diagnosis [facility] Diagnosis: ICD-10-CM L60.3 Nail dystrophy Active Diagnosis [place] Diagnosis: ICD-10-CM M54.16 Radiculopathy, lumbar region Active Diagnosis [facility] Diagnosis: ICD-10-CM Z46.0 Encounter for fit/adjst of spectacles and contact lenses Active Diagnosis [facility] Diagnosis: ICD-10-CM L91.0 Hypertrophic scar Active Diagnosis [place] Diagnosis: ICD-10-CM I83.813 Varicose veins of bilateral lower extremities with pain Active Diagnosis [place] Diagnosis: ICD-10-CM E04.1 Nontoxic single thyroid nodule Active Diagnosis [facility] Diagnosis: ICD-10-CM G90.09 Other idiopathic peripheral autonomic neuropathy Active Diagnosis [place] Diagnosis: ICD-10-CM G47.39 Other sleep apnea Active Diagnosis [facility] [place] Diagnosis: ICD-10-CM Z71.89 Other specified counseling Active Diagnosis [facility] Diagnosis: ICD-10-CM Z73.3 Stress, not elsewhere classified Active Diagnosis [facility] Diagnosis: ICD-10-CM Z72.3 Lack of physical exercise Active Diagnosis [facility] Diagnosis: ICD-10-CM E66.09 Other obesity due to excess calories Active Diagnosis [facility] Diagnosis: ICD-10-CM M54.59 Other low back pain Active Diagnosis [facility] Diagnosis: ICD-10-CM H25.813 Combined forms of age-related cataract, bilateral Active Diagnosis [facility] Diagnosis: ICD-10-CM M25.561 Pain in right knee Active Diagnosis [facility] [place] [facility] Diagnosis: ICD-10-CM M79.674 Pain in right toe(s) Active Diagnosis [facility] Diagnosis: ICD-10-CM M41.9 Scoliosis, unspecified Active Diagnosis [place] Diagnosis: ICD-10-CM M25.569 Pain in unspecified knee Active Diagnosis [facility] Diagnosis: ICD-10-CM M79.675 Pain in left toe(s) Active Diagnosis [facility] Diagnosis: ICD-10-CM R20.2 Paresthesia of skin Active Diagnosis [facility] Diagnosis: ICD-10-CM G25.81 Restless legs syndrome Active Diagnosis [facility] Diagnosis: ICD-10-CM L60.0 Ingrowing nail Active Diagnosis [facility] Carmen Medications Combined list of outpatient medications from [...] TIMES DAILY NEEDED FOR PAIN ORAL ACTIVE 12/26/2025 [id number] 5 KRAIG HALL 2024 100 [place] ACETAMINOPH EN 500MG TAB TAKE ONE TABLET BY MOUTH THREE TIMES DAILY NEEDED FOR PAIN ORAL DISCONT INUED 08/20/2025 [id number] 5 Yaquelin LAKE 2024 100 [place] ACETAMINOPH EN 500MG TAB TAKE ONE TABLET BY MOUTH THREE TIMES DAILY NEEDED FOR PAIN ORAL DISCONT INUED 02/17/2025 [id number] GREGG BLISS F 2023 100 [place] ALLOPURINOL 100MG TAB TAKE ONE TABLET BY MOUTH ONCE DAILY FOR GOUT ORAL SUSPEND ED 12/26/2025 [id number] 5 KRAIG HALL 2024 90 [place] ALLOPURINOL 100MG TAB TAKE ONE TABLET BY MOUTH ONCE DAILY FOR GOUT ORAL DISCONT INUED 06/18/2025 [id number] 5 Yaquelin LAKE 2023 90 [place] ALLOPURINOL 100MG TAB TAKE ONE TABLET BY MOUTH ONCE DAILY FOR GOUT ORAL DISCONT INUED 05/22/2024 [id number] JUSTINA HARMON 2022 90 [place] ATORVASTATI N CA 10MG TAB TAKE ONE TABLET BY MOUTH AT BEDTIME FOR HIGH CHOLESTE ROL ORAL SUSPEND ED 12/26/2025 [id number] 5 KRAIG HALL 2024 90 [place] ATORVASTATI N CA 10MG TAB TAKE ONE TABLET BY MOUTH AT BEDTIME FOR HIGH CHOLESTE ROL ORAL DISCONT INUED 01/16/2025 [id number] 5 Yaquelin LAKE 06/26/ 2025 90 [place] ATORVASTATI N CA 10MG TAB TAKE ONE TABLET BY MOUTH AT BEDTIME FOR HIGH CHOLESTE ROL ORAL DISCONT INUED 11/03/2024 [id number] 5 Carmen PEREIRA AVID A 2023 90 [place] BETAMETHASO NE VALERATE 0.1% LOTION APPLY SMALL AMOUNT TOPICALL Y TWICE DAILY TO SCALP FOR ITCHING TOPICA L ACTIVE 07/21/2025 [id number] Brady CHAN PA-C 2024 60 [facility] CAMPHOR/MEN THOL/METHYL SALICYLATE PATCH APPLY 1 PATCH TOPICALL Y ONCE DAILY NEEDED FOR PAIN (REMOVE PATCH AFTER 8 TO 12 HOURS) TOPICA L DISCONT INUED BY PROVIDE R 12/22/2024 [id number] GREGG BLISS RMEN F 2023 60 [place] CAPSAICIN 0.025% CREAM,TOP APPLY A SMALL AMOUNT TOPICALL Y THREE TIMES A DAY FOR LOCALIZE D PAIN TOPICA L DISCONT INUED BY PROVIDE R 06/23/2025 [id number] MIREILLE DENNISON S 2023 60 [facility] DILTIAZEM (EQV-CARDIZ EM AB3) 120MG 24HR CAP TAKE ONE CAPSULE BY MOUTH ONCE DAILY FOR HIGH BLOOD PRESSURE ORAL SUSPEND ED 12/26/2025 [id number] 5 KRAIG HALL 2024 90 [place] DILTIAZEM (EQV-CARDIZ EM AB3) 120MG 24HR CAP TAKE ONE CAPSULE BY MOUTH ONCE DAILY FOR HIGH BLOOD PRESSURE ORAL DISCONT INUED 11/03/2024 [id number] 5 Carmen PEREIRA AVID A 2023 90 [place] DILTIAZEM (EQV-CARDIZ EM AB3) 120MG 24HR CAP TAKE ONE CAPSULE BY MOUTH ONCE DAILY FOR HIGH BLOOD PRESSURE ORAL DISCONT INUED 04/08/2024 [id number] JUSTINA HARMON 2022 90 [place] FISH OIL CAP,ORAL TAKE BY MOUTH DAILY ORAL ACTIVE EDENBUSHRABrady GONZALEZ 2015 [place] FLUOCINONID E 0.05% SOLN,TOP APPLY 5-10 DROPS TO SCALP TWICE DAILY IN THE MORNING and EVENING AND MASSAGE IN. TOPICA L ACTIVE 05/19/2025 [id number] 5 Brady CHAN PA-C 2023 60 [facility] [place] HYDROXYZINE HCL 10MG TAB TAKE ONE TABLET BY MOUTH ONCE DAILY AT SUPPER TIME, AND AT BEDTIME IF NEEDED FOR ITCH. ORAL DISCONT INUED BY PROVIDE R 07/20/2025 [id number] Brady CHAN PA-C 2024 60 [facility] [place] KETOCONAZOL E 2% SHAMPOO SHAMPOO SMALL AMOUNT TOPICALL Y DIRECTED BY PROVIDER MELITA Brennan ACTIVE 09/30/2025 [id number] 5 Brady CHAN PA-C 2024 120 [facility] [place] KETOCONAZOL E 2% SHAMPOO SHAMPOO TO DAMP HAIR TOPICALL Y DIRECTED BY PROVIDER LEAVE IN FOR 5 MINUTES AND RINSE OUT. USE WHEN SHAMPOOI NG TOPICOlivia L DISCONT INUED 12/29/2024 [id number] Brady CHAN PA-C 2023 120 [facility] [place] KETOCONAZOL E 2% SHAMPOO SHAMPOO SMALL AMOUNT TOPICALL Y ONCE DAILY APPLY TO DAMP HAIR, LATHER AND LEAVE IN FOR 5 MINUTES AND THEN RINSE OUT. TOPICA L 08/20/2024 [id number] Brady CHAN PA-C 2024 120 [facility] [place] [facility] LEVOTHYROXI NE NA 125MCG TAB (SYNTHROID) TAKE ONE TABLET BY MOUTH EVERY MORNING 30 MINUTES BEFORE BREAKFAS T FOR THYROID TAKE ON AN EMPTY STOMACH WITH A FULL GLASS OF WATER ORAL DISCONT INUED (EDIT) 10/16/2024 [id number] SHANTEL CHENEY 2023 90 [place] LEVOTHYROXI NE NA 137MCG TAB TAKE ONE TABLET BY MOUTH EVERY MORNING 30 MINUTES BEFORE BREAKFAS T FOR THYROID TAKE ON AN EMPTY STOMACH WITH A FULL GLASS OF WATER ORAL SUSPEND ED 12/26/2025 [id number] 5 KRAIG HALL 2024 90 [place] LEVOTHYROXI NE NA 137MCG TAB TAKE ONE TABLET BY MOUTH EVERY MORNING 30 MINUTES BEFORE BREAKFAS T FOR THYROID TAKE ON AN EMPTY STOMACH WITH A FULL GLASS OF WATER ORAL DISCONT INUED 01/16/2025 [id number] 5 Yaquelin LAKE 2024 90 [place] LEVOTHYROXI NE NA 137MCG TAB TAKE ONE TABLET BY MOUTH EVERY MORNING 30 MINUTES BEFORE BREAKFAS T FOR THYROID TAKE ON AN EMPTY STOMACH WITH A FULL GLASS OF WATER ORAL DISCONT INUED 07/02/2025 [id number] 5 Yaquelin LAKE [address] [facility] LIDOCAINE 4% CREAM,TOP APPLY A SMALL AMOUNT TOPICALL Y TWICE DAILY PERIPHER AL NEUROPAT HY TOPICA L ACTIVE 07/08/2025 [id number] 5 Yaquelin LAKE [address] [facility] METOPROLOL SUCCINATE 50MG TAB,SA TAKE ONE TABLET BY MOUTH ONCE DAILY FOR BLOOD PRESSURE /HEART ORAL SUSPEND ED 12/26/2025 [id number] 5 KRAIG HALL [address] [facility] METOPROLOL SUCCINATE 50MG TAB,SA TAKE ONE TABLET BY MOUTH ONCE DAILY FOR BLOOD PRESSURE /HEART ORAL DISCONT INUED 01/16/2025 [id number] 5 Yaquelin LAKE [address] [facility] METOPROLOL SUCCINATE 50MG TAB,SA TAKE ONE TABLET BY MOUTH ONCE DAILY FOR BLOOD PRESSURE /HEART ORAL DISCONT INUED 11/03/2024 [id number] 5 Carmen PEREIRA [address] [facility] MULTIVITAMI NS W/MINERALS TAB TAKE ONE TABLET BY MOUTH EVERY DAY ORAL ACTIVE JUSTINA HARMON 2012 [place] NIACIN TAB TAKE BY MOUTH ORAL ACTIVE JUSTINA HARMONE [address] [facility] POTASSIUM CITRATE 10MEQ TAB,SA TAKE TWO TABLETS BY MOUTH TWICE DAILY ORAL ACTIVE 08/20/2025 [id number] 5 Yaquelin LAKE [address] [facility] [place] POTASSIUM CITRATE 10MEQ TAB,SA TAKE TWO TABLETS BY MOUTH TWICE DAILY ORAL DISCONT INUED 05/26/2025 [id number] 4 Yaquelin LAKE [address] [facility] POTASSIUM CITRATE 10MEQ TAB,SA TAKE TWO TABLETS BY MOUTH TWICE DAILY ORAL DISCONT INUED 02/25/2025 [id number] 4 Carmen PEREIRA A [address] [facility] POTASSIUM CITRATE 10MEQ TAB,SA TAKE TWO TABLETS BY MOUTH TWICE DAILY ORAL DISCONT INUED 11/28/2024 [id number] 4 Carmen PEREIRA A [address] [facility] PREGABALIN 25MG CAP,ORAL TAKE ONE CAPSULE BY MOUTH TWICE DAILY ORAL DISCONT INUED BY PROVIDE R 10/16/2024 [id number] MIREILLE DENNISON 2023 60 [facility] RIVAROXABAN 20MG TAB TAKE ONE TABLET BY MOUTH ONCE DAILY TO PREVENT BLOOD CLOTS (TAKE WITH FOOD) ORAL SUSPEND ED 12/26/2025 [id number] 5 KRAIG HALL [address] [facility] [place] RIVAROXABAN 20MG TAB TAKE ONE TABLET BY MOUTH ONCE DAILY TO PREVENT BLOOD CLOTS (TAKE WITH FOOD) ORAL DISCONT INUED 08/20/2025 [id number] 5 Yaquelin LAKE [address] [facility] RIVAROXABAN 20MG TAB TAKE ONE TABLET BY MOUTH ONCE DAILY TO PREVENT BLOOD CLOTS (TAKE WITH FOOD) ORAL DISCONT INUED 11/03/2024 [id number] 5 Carmen PEREIRA A [address] [facility] [place] Immunizations Combined list of available immunizations from the Department of Defense and Veterans Affairs facilities. Immunization Series Date Given Administered By Site Reaction Lot Number CVX Code Drug Personal Banking Representative Status Comments Source COVID-19 (MODERNA), MRNA, LNP-S, PF, 50 MCG/0.5 ML (AGES 12+ YEARS) 2024 312 complet ed HISTORICA L INFORMATI ON - FROM PATIENT'S RECALL, [facility] [place] [facility] INFLUENZA, SPLIT VIRUS, TRIVALENT, PF 2023 MADELEINEEUGENIE LEFT DELTO ID [id number] 140 complet ed ADMINISTE [place] AT [place], change his mind [place] ZOSTER RECOMBINANT 2 2023 187 complet ed HISTORICA L INFORMATI ON - FROM PATIENT'S RECALL, was vaccinate d on Margarita Garcia [place] [facility] [place] [facility] INFLUENZA, HIGH-DOSE, QUADRIVALENT 2022 SIDNEYNAY DYSON SA KAYLAH RIGHT DELTO ID [id number] 197 complet ed ADMINISTE RED AT [place], [facility] [place] [facility] PNEUMOCOCCAL CONJUGATE PCV 13 2021 133 complet ed [facility] [place] [facility] [facility] ZOSTER RECOMBINANT 1 2021 187 complet ed [place] [facility] [place] [facility] TDAP 2016 115 complet ed [facility] [place] [facility] ZOSTER (SHINGLES) (HISTORICAL) 2014 121 complet ed Proximal Left Arm [place] DTAP, UNSPECIFIED FORMULATION 2010 107 complet ed Site: Left Deltoid [place] TD(ADULT) UNSPECIFIED FORMULATION 2009 139 complet ed States after accident @ work when pallet fell on his toe. [facility] [place] [facility] [facility] Results Combined list of [...] Type: SERUM No comment entered. Ordering Provider: CUTLER,WILL AAMIR S Report Released Date/Time: Apr 15, 2024 10:55 AM Reporting Lab: [facility] [place] [facility] [address] [facility] [address] Performing Lab: [facility] [place] [facility] [address] [facility] [address] [facility] [place] [facility] BASIC METABOLIC PANEL (fasting) UREA NITROGEN [MASS/VOLUM E] IN SERUM OR PLASMA 20 mg/dL 7 - 25 03/31 Specimen Type: SERUM No comment entered. Ordering Provider: BENJA HARMON IE Report Released Date/Time: Apr 08, 2023 02:27 PM Reporting Lab: [facility] [place] [facility] [address] [facility] [address] Performing Lab: [facility] [place] [facility] [address] [facility] [address] [place] BASIC METABOLIC PANEL (fasting) GLUCOSE [MASS/VOLUM E] IN SERUM OR PLASMA 100 mg/dL 65 - 100 03/31 Specimen Type: SERUM No comment entered. Ordering Provider: BENJA HARMON IE Report Released Date/Time: Apr 08, 2023 02:27 PM Reporting Lab: [facility] [place] [facility] [address] [facility] [address] Performing Lab: [facility] [place] [facility] [address] [facility] [address] [place] BASIC METABOLIC PANEL (fasting) SODIUM [MOLES/VOLU ME] IN SERUM OR PLASMA 140 mmol/L 135 - 145 03/31 Specimen Type: SERUM No comment entered. Ordering Provider: BENJA HARMON IE Report Released Date/Time: Apr 08, 2023 02:27 PM Reporting Lab: [facility] [place] [facility] [address] [facility] [address] Performing Lab: [facility] [place] [address] [address] [place] BASIC METABOLIC PANEL (fasting) POTASSIUM [MOLES/VOLU ME] IN SERUM OR PLASMA 4.2 mmol/L 3.5 - 5.0 03/31 Specimen Type: SERUM No comment entered. Ordering Provider: BENJA HARMON IE Report Released Date/Time: Apr 08, 2023 02:27 PM Reporting Lab: [facility] [address] [facility] [address] Performing Lab: [facility] [address] [facility] [address] [place] BASIC METABOLIC PANEL (fasting) CHLORIDE [MOLES/VOLU ME] IN SERUM OR PLASMA 109 mmol/L 100 - 110 03/31 Specimen Type: SERUM No comment entered. Ordering Provider: BENJA HARMON IE Report Released Date/Time: Apr 08, 2023 02:27 PM Reporting Lab: [facility] [address] [facility] [address] Performing Lab: [address] [address] [place] BASIC METABOLIC PANEL (fasting) CARBON DIOXIDE, TOTAL [MOLES/VOLU ME] IN SERUM OR PLASMA 23 meq/L 20 - 30 03/31 Specimen Type: SERUM No comment entered. Ordering Provider: BENJA HARMON IE Report Released Date/Time: Apr 08, 2023 02:27 PM Reporting Lab: [facility] [address] [facility] [address] Performing Lab: [facility] [address] [facility] [address] [place] BASIC METABOLIC PANEL (fasting) CREATININE [MASS/VOLUM E] IN SERUM OR PLASMA 0.96 mg/dL 0.50 - 1.40 03/31 Specimen Type: SERUM No comment entered. Ordering Provider: BENJA HARMON IE Report Released Date/Time: Apr 08, 2023 02:27 PM Reporting Lab: [facility] [address] [facility] [address] Performing Lab: [facility] [address] [address] [place] BASIC METABOLIC PANEL (fasting) GLOMERULAR FILTRATION RATE/1.73 SQ M.PREDICTED [VOLUME RATE/AREA] IN SERUM, PLASMA OR BLOOD BY CREATININE- BASED FORMULA (CKD-EPI 2020) 86 mL/min 60 03/31 Specimen Type: SERUM No comment entered. Ordering Provider: BENJA HARMON IE Report Released Date/Time: Apr 08, 2023 02:27 PM Reporting Lab: [facility] [address] [address] Performing Lab: [facility] TRN [facility] [address] [address] [place] CBC AND DIFF (AUTO) LEUKOCYTES [#/VOLUME] IN BLOOD BY AUTOMATED COUNT 4.01 10*3/u L 4.50 - 11.00 03/31 L Specimen Type: BLOOD No comment entered. Ordering Provider: BENJA HARMON IE Report Released Date/Time: Apr 08, 2023 02:27 PM Reporting Lab: [facility] [address] [address] Performing Lab: [facility] [address] [place] CBC AND DIFF (AUTO) ERYTHROCYTE S [#/VOLUME] IN BLOOD BY AUTOMATED COUNT 4.67 10*6/u L 4.23 - 5.66 03/31 Specimen Type: BLOOD No comment entered. Ordering Provider: BENJA HARMON IE Report Released Date/Time: Apr 08, 2023 02:27 PM Reporting Lab: [facility] TR[facility] [address] [address] Performing Lab: [facility] [address] [place] CBC AND DIFF (AUTO) HEMOGLOBIN [MASS/VOLUM E] IN BLOOD 14.1 g/dL 12.8 - 17 03/31 Specimen Type: BLOOD No comment entered. Ordering Provider: BENJA HARMON IE Report Released Date/Time: Apr 08, 2023 02:27 PM Reporting Lab: [facility] [address] [address] Performing Lab: [facility] [address] [place] CBC AND DIFF (AUTO) HEMATOCRIT [VOLUME FRACTION] OF BLOOD BY AUTOMATED COUNT 42.9 39.2 - 50.4 03/31 Specimen Type: BLOOD No comment entered. Ordering Provider: BENJA HARMON IE Report Released Date/Time: Apr 08, 2023 02:27 PM Reporting Lab: [facility] [address] [address] Performing Lab: [facility] [address] [address] [place] CBC AND DIFF (AUTO) MCV [ENTITIC VOLUME] BY AUTOMATED COUNT 91.9 fL 82 - 99 03/31 Specimen Type: BLOOD No comment entered. Ordering Provider: BENJA HARMON IE Report Released Date/Time: Apr 08, 2023 02:27 PM Reporting Lab: [facility] [address] [address] Performing Lab: [facility] [address] [address] [place] CBC AND DIFF (AUTO) MCHC [MASS/VOLUM E] BY AUTOMATED COUNT 32.9 g/dL 30.8 - 35.1 03/31 Specimen Type: BLOOD No comment entered. Ordering Provider: BENJA HARMON IE Report Released Date/Time: Apr 08, 2023 02:27 PM Reporting Lab: [facility] [address] [address] Performing Lab: [facility] [address] [phone] [place] CBC AND DIFF (AUTO) PLATELETS [#/VOLUME] IN BLOOD BY AUTOMATED COUNT 185 10*3/u L 140 - 360 03/31 Specimen Type: BLOOD No comment entered. Ordering Provider: BENJA HARMON IE Report Released Date/Time: Apr 08, 2023 02:27 PM Reporting Lab: [facility] [address] [phone] Performing Lab: [facility] [address] [address] [place] CBC AND DIFF (AUTO) ERYTHROCYTE DISTRIBUTIO N WIDTH [RATIO] BY AUTOMATED COUNT 13.5 12.0 - 16.0 03/31 Specimen Type: BLOOD No comment entered. Ordering Provider: BENJA HARMON IE Report Released Date/Time: Apr 08, 2023 02:27 PM Reporting Lab: [facility] [address] [address] Performing Lab: [facility] [address] [address] [place] CBC AND DIFF (AUTO) MONOCYTES [#/VOLUME] IN BLOOD BY AUTOMATED COUNT 0.34 10*3/u L 0.30 - 1.10 03/31 Specimen Type: BLOOD No comment entered. Ordering Provider: BENJA HARMON IE Report Released Date/Time: Apr 08, 2023 02:27 PM Reporting Lab: [facility] [address] [address] Performing Lab: [facility] [address] [place] CBC AND DIFF (AUTO) MCH [ENTITIC MASS] BY AUTOMATED COUNT 30.2 pg 26.2 - 32.6 03/31 Specimen Type: BLOOD No comment entered. Ordering Provider: BENJA HARMNO IE Report Released Date/Time: Apr 08, 2023 02:27 PM Reporting Lab: [facility] [address] [address] Performing Lab: [facility] [address] [address] [place] CBC AND DIFF (AUTO) NEUTROPHILS /100 LEUKOCYTES IN BLOOD BY AUTOMATED COUNT 67.6 43.7 - 75.8 03/31 Specimen Type: BLOOD No comment entered. Ordering Provider: BENJA HARMON IE Report Released Date/Time: Apr 08, 2023 02:27 PM Reporting Lab: [facility] [address] [address] Performing Lab: [facility] [address] [place] CBC AND DIFF (AUTO) LYMPHOCYTES /100 LEUKOCYTES IN BLOOD BY AUTOMATED COUNT 18.5 14.0 - 42.3 03/31 Specimen Type: BLOOD No comment entered. Ordering Provider: BENJA HARMON IE Report Released Date/Time: Apr 08, 2023 02:27 PM Reporting Lab: [facility] [address] [address] Performing Lab: [facility] [address] [place] CBC AND DIFF (AUTO) MONOCYTES/1 00 LEUKOCYTES IN BLOOD BY AUTOMATED COUNT 8.5 5.1 - 13.7 03/31 Specimen Type: BLOOD No comment entered. Ordering Provider: BENJA HARMON IE Report Released Date/Time: Apr 08, 2023 02:27 PM Reporting Lab: [facility] [address] [address] Performing Lab: [facility] [address] [place] CBC AND DIFF (AUTO) EOSINOPHILS /100 LEUKOCYTES IN BLOOD BY AUTOMATED COUNT 4.2 0.4 - 6.8 03/31 Specimen Type: BLOOD No comment entered. Ordering Provider: BENJA HARMON IE Report Released Date/Time: Apr 08, 2023 02:27 PM Reporting Lab: [facility] [address] [address] Performing Lab: [facility] [address] [place] CBC AND DIFF (AUTO) BASOPHILS/1 00 LEUKOCYTES IN BLOOD BY AUTOMATED COUNT 1.0 0.1 - 2.0 03/31 Specimen Type: BLOOD No comment entered. Ordering Provider: BENJA HARMON IE Report Released Date/Time: Apr 08, 2023 02:27 PM Reporting Lab: [facility] [address] [address] Performing Lab: [facility] [address] [place] CBC AND DIFF (AUTO) NEUTROPHILS [#/VOLUME] IN BLOOD BY AUTOMATED COUNT 2.71 10*3/u L 2.20 - 7.60 03/31 Specimen Type: BLOOD No comment entered. Ordering Provider: BENJA HARMON IE Report Released Date/Time: Apr 08, 2023 02:27 PM Reporting Lab: [facility] [address] [address] Performing Lab: [facility] [address] [address] [place] CBC AND DIFF (AUTO) LYMPHOCYTES [#/VOLUME] IN BLOOD BY AUTOMATED COUNT 0.74 10*3/u L 1.00 - 3.20 03/31 L Specimen Type: BLOOD No comment entered. Ordering Provider: BENJA HARMON IE Report Released Date/Time: Apr 08, 2023 02:27 PM Reporting Lab: [facility] [address] [address] Performing Lab: [facility]N [address] [address] [place] CBC AND DIFF (AUTO) EOSINOPHILS [#/VOLUME] IN BLOOD BY AUTOMATED COUNT 0.17 10*3/u L 0.03 - 0.44 03/31 Specimen Type: BLOOD No comment entered. Ordering Provider: BENJA HARMON IE Report Released Date/Time: Apr 08, 2023 02:27 PM Reporting Lab: [facility] [address] [address] Performing Lab: [facility] [address] [address] [place] CBC AND DIFF (AUTO) BASOPHILS [#/VOLUME] IN BLOOD BY AUTOMATED COUNT 0.04 10*3/u L 0.01 - 0.13 03/31 Specimen Type: BLOOD No comment entered. Ordering Provider: BENJA HARMON IE Report Released Date/Time: Apr 08, 2023 02:27 PM Reporting Lab: [facility] [address] [address] Performing Lab: [facility] [address] [address] [place] CBC AND DIFF (AUTO) IMMATURE GRANULOCYTE S/100 LEUKOCYTES IN BLOOD BY AUTOMATED COUNT 0.2 0.0 - 0.7 03/31 Specimen Type: BLOOD No comment entered. Ordering Provider: BENJA HARMON IE Report Released Date/Time: Apr 08, 2023 02:27 PM Reporting Lab: [address] [address] Performing Lab: [address] [address] [place] CBC AND DIFF (AUTO) IMMATURE GRANULOCYTE S [#/VOLUME] IN BLOOD 0.01 10*3/u L 0.00 - 0.06 03/31 Specimen Type: BLOOD No comment entered. Ordering Provider: BENJA HARMON IE Report Released Date/Time: Apr 08, 2023 02:27 PM Reporting Lab: [address] [address] Performing Lab: [address] [address] [place] CBC AND DIFF (AUTO) NRBC % 0.0 0.0 - 0.0 03/31 Specimen Type: BLOOD No comment entered. Ordering Provider: BENJA HARMON IE Report Released Date/Time: Apr 08, 2023 02:27 PM Reporting Lab: [address] [address] Performing Lab: [address] [address] [place] CBC AND DIFF (AUTO) NRBC, ABS 0.00 10*3/u L 0.00 - 0.00 03/31 Specimen Type: BLOOD No comment entered. Ordering Provider: BENJA HARMON IE Report Released Date/Time: Apr 08, 2023 02:27 PM Reporting Lab: [address] [address] Performing Lab: [address] [address] [place] HEMOGLOBI N A1C PANEL HEMOGLOBIN [...] [email or web address] Ordering Provider: BENJA HARMON Report Released Date/Time: Apr 08, 2023 02:27 PM Reporting Lab: [address] [address] Performing Lab: [facility] [address] [address] [place] LIPID PANEL FASTING CHOLESTEROL [MASS/VOLUM E] IN SERUM OR PLASMA 164 mg/dL 03/31 Specimen Type: SERUM No comment entered. Ordering Provider: BENJA HARMON IE Report Released Date/Time: Apr 08, 2023 02:27 PM Reporting Lab: [address] [address] Performing Lab: [address] [address] [place] LIPID PANEL FASTING TRIGLYCERID E [MASS/VOLUM E] IN SERUM OR PLASMA 102 mg/dL 0 - 150 03/31 Specimen Type: SERUM No comment entered. Ordering Provider: BENJA HARMON Report Released Date/Time: Apr 08, 2023 02:27 PM Reporting Lab: [address] [address] Performing Lab: [address] [address] [place] LIPID PANEL FASTING CHOLESTEROL IN LDL [MASS/VOLUM E] IN SERUM OR PLASMA BY CALCULATION 101 mg/dL 0 - 129 03/31 Specimen Type: SERUM No comment entered. Ordering Provider: BENJA HARMON IE Report Released Date/Time: Apr 08, 2023 02:27 PM Reporting Lab: [address] [address] Performing Lab: [address] [address] [place] LIPID PANEL FASTING CHOLESTEROL .TOTAL/CHOL ESTEROL IN HDL [MASS RATIO] IN SERUM OR PLASMA 3.8 03/31 Specimen Type: SERUM No comment entered. Ordering Provider: BENJA HARMON IE Report Released Date/Time: Apr 08, 2023 02:27 PM Reporting Lab: [facility] [address] [facility] [address] Performing Lab: [address] [address] [place] LIPID PANEL FASTING CHOLESTEROL IN HDL [MASS/VOLUM E] IN SERUM OR PLASMA 43 mg/dL 40 - 60 03/31 Specimen Type: SERUM No comment entered. Ordering Provider: BENJA HARMON IE Report Released Date/Time: Apr 08, 2023 02:27 PM Reporting Lab: [address] [address] Performing Lab: [address] [address] [place] LIVER FUNCTION PROTEIN [MASS/VOLUM E] IN SERUM OR PLASMA 6.0 g/dL 6.0 - 8.3 03/31 Specimen Type: SERUM No comment entered. Ordering Provider: BENJA HARMON IE Report Released Date/Time: Apr 08, 2023 02:27 PM Reporting Lab: [address] [address] Performing Lab: [address] [address] [place] LIVER FUNCTION ALBUMIN [MASS/VOLUM E] IN SERUM OR PLASMA 3.5 g/dL 3.5 - 5.0 03/31 Specimen Type: SERUM No comment entered. Ordering Provider: BENJA HARMON IE Report Released Date/Time: Apr 08, 2023 02:27 PM Reporting Lab: [address] [address] Performing Lab: [address] [address] [place] LIVER FUNCTION ALKALINE PHOSPHATASE [ENZYMATIC ACTIVITY/VO LUME] IN SERUM OR PLASMA 70 U/L 40 - 150 03/31 Specimen Type: SERUM No comment entered. Ordering Provider: EBNJA HARMON IE Report Released Date/Time: Apr 08, 2023 02:27 PM Reporting Lab: [place] [facility] [place] [facility] [address] [facility] [address] Performing Lab: [facility] [address] [address] [place] LIVER FUNCTION ASPARTATE AMINOTRANSF ERASE [ENZYMATIC ACTIVITY/VO LUME] IN SERUM OR PLASMA 14 U/L 5 - 34 03/31 Specimen Type: SERUM No comment entered. Ordering Provider: BENJA HARMON IE Report Released Date/Time: Apr 08, 2023 02:27 PM Reporting Lab: [facility] [address] Performing Lab: [facility] [address] [place] LIVER FUNCTION ALANINE AMINOTRANSF ERASE [ENZYMATIC ACTIVITY/VO LUME] IN SERUM OR PLASMA 20 U/L 03/31 Specimen Type: SERUM No comment entered. Ordering Provider: BENJA HARMON IE Report Released Date/Time: Apr 08, 2023 02:27 PM Reporting Lab: [facility] [address] Performing Lab: [facility] [address] [address] [place] LIVER FUNCTION BILIRUBIN.T OTAL [MASS/VOLUM E] IN SERUM OR PLASMA 1.0 mg/dL 0.2 - 1.2 03/31 Specimen Type: SERUM No comment entered. Ordering Provider: BENJA HARMON IE Report Released Date/Time: Apr 08, 2023 02:27 PM Reporting Lab: [facility] [address] Performing Lab: [facility] [address] [address] [place] TSH THYROTROPIN [UNITS/VOLU ME] IN SERUM OR PLASMA 2.67 u[IU]/ mL 0.35 - 5.00 03/31 Specimen Type: SERUM No comment entered. Ordering Provider: BENJA HARMON IE Report Released Date/Time: Apr 08, 2023 02:27 PM Reporting Lab: [facility] [address] [address] Performing Lab: [address] [address] [place] HEMOGLOBI N A1C PANEL HEMOGLOBIN A1C/HEMOGLO BIN.TOTAL IN BLOOD BY HPLC 5.2 4.0 - 5.6 04/02 Specimen Type: BLOOD Comment: Values obtained from [...] Mar 19, 2023 04:01 PM Reporting Lab: [facility] [address] [address] Performing Lab: [facility] [address] [place] PSA PROSTATE SPECIFIC AG [MASS/VOLUM E] IN SERUM OR PLASMA 2.05 ng/mL 0.00 - 4.00 04/02 Specimen Type: SERUM No comment entered. Ordering Provider: BENJA HARMON IE Report Released Date/Time: Mar 19, 2023 04:01 PM Reporting Lab: [facility] [address] Performing Lab: [facility] [address] [place] VITAMIN B12 COBALAMIN (VITAMIN B12) [MASS/VOLUM E] IN SERUM OR PLASMA 342 pg/mL 200 - 900 04/02 Specimen Type: SERUM No comment entered. Ordering Provider: BENJA HARMON IE Report Released Date/Time: Mar 19, 2023 04:01 PM Reporting Lab: [facility] [address] [address] Performing Lab: [facility] [place] [facility] [address] [facility] [address] ROBIN[place] Vital Signs Combined list of inpatient and outpatient Vital Signs from Department of Defense and Veterans Affairs, ranging from 12 months to all on record, depending upon the facility. Vital Sign Value Date Comments Source SYSTOLIC BLOOD PRESSURE 113 12/18/19 14:09:54 [facility] DIASTOLIC BLOOD PRESSURE 64 025 14:09:54 [facility] PULSE OXIMETRY 96 % 12/17/2024 14:09:54 [facility] WEIGHT 258 12/17/2024 14:09:54 [facility] BMI 33 kg/m2 12/17/2024 14:09:54 [facility] PULSE 85 12/17/2024 14:09:54 [facility] SYSTOLIC BLOOD PRESSURE 133 07/07/19 13:09:58 [facility] DIASTOLIC BLOOD PRESSURE 68 025 13:09:58 [facility] PULSE OXIMETRY 97 07/07/2024 13:09:58 [facility] WEIGHT 262 07/07/2024 13:09:58 [facility] BMI 34 kg/m2 07/07/2024 13:09:58 [facility] HEIGHT 74 07/07/2024 13:09:58 [facility] TEMPERATURE 97.9 07/07/2024 13:09:58 [facility] PULSE 65 07/07/2024 13:09:58 [facility] RESPIRATION 19 07/07/2024 13:09:58 [facility] SYSTOLIC BLOOD PRESSURE 117 04/06/20 24 10:37:43 [facility] DIASTOLIC BLOOD PRESSURE 70 024 10:37:43 [facility] PULSE OXIMETRY 96 04/06/2024 10:37:43 [facility] WEIGHT 260 04/06/2024 10:37:43 [facility] BMI 33 kg/m2 04/06/2024 10:37:43 [facility] PULSE 72 04/06/2024 10:37:43 [facility] WEIGHT 256.9 02/25/2024 11:00:00 [facility] [place] [facility] BMI 33 kg/m2 02/25/2024 11:00:00 [facility] Encounters Combined list of: 1) Encounters from Department of Veterans Affairs facilities going backup to the last 18 months, not all [place] inpatient encounters are included; 2) Encounters from the Department of Defense facilities going backup to 280 months. Location Location Details Encounter Type Encounter Number Reason For Visit Attending Provider ADM Date DC Date Status Disposition Source [facility] EXERCISE CLASS [id number] Diagnos is: ICD-10- CM Y93.42 Activit y, yoga ZANVETTOR, MARY KATE 07/24 [facility] En[facility] [id number] 07/25 [facility] STRESS MGMT CLASS [id number] Diagnos is: ICD-10- CM Y93.42 Activit y, yoga ZANVETTOR, MARY KATE 07/28 [facility] EXERCISE CLASS [id number] Diagnos is: ICD-10- CM Y93.42 Activit y, yoga ZANVETTOR, MARY KATE 07/31 [facility] Encounter [id number] XAVIER BLEDSOE 08/01 [facility] En[facility] [id number] 08/01 [facility] Encounter [id number] Carmen SHIN 08/01 [facility] OFF/OP EST OCTOBER X REQ PHY/QHP [id number] Diagnos is: ICD-10- CM 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 Olivia Zhou 08/01 [facility] STRESS MGMT CLASS [id number] Diagnos is: ICD-10- CM Y93.42 Activit y, yoga ZANVETTOR, MARY KATE 08/04 [facility] EXERCISE CLASS [id number] Diagnos is: ICD-10- CM Y93.42 Activit y, yoga ZANVETTOR, MARY KATE 08/07 [facility] En[facility] [id number] 08/08 [facility] EXERCISE CLASS [id number] Diagnos is: ICD-10- CM Y93.42 Activit y, yoga ZANVETTOR, MARY KATE 08/12 [facility] EXERCISE CLASS [id number] Diagnos is: ICD-10- CM Y93.42 Activit y, yoga ZANVETTOR, MARY KATE 08/14 [facility] En[facility] [id number] 08/15 [facility] EXERCISE CLASS [id number] Diagnos is: ICD-10- CM Y93.42 Activit y, yoga ZANVETTOR, MARY KATE 08/18 [facility] En[facility] [id number] 08/18 [facility] En[facility] [id number] 08/19 [facility] En[facility] [id number] 08/20 [facility] En[facility] [id number] [facility] EXERCISE CLASS [id number] Diagnos is: ICD-10- CM Y93.42 Activit y, yoga TERESA, MARY KATE [facility] [place] O/P EST LOW 20 MIN [id number] Diagnos is: ICD-10- CM L60.0 Ingrowi EDGARD Loco ES F 08/21 [place] [facility] Out[facility] Encounter [id number] 08/21 [facility] EXERCISE CLASS [id number] Diagnos is: ICD-10- CM Y93.42 Activit y, yoga TERESA, MARY KATE 08/24 [facility] STRESS MGMT CLASS [id number] Diagnos is: ICD-10- CM Y93.42 Activit y, yoga JOHANNAVEBINDU, MAYR KATE 08/27 [facility] En[facility] [id number] 08/28 [facility] En[facility] [id number] 08/28 [facility] Encounter [id number] 08/28 [facility] EXERCISE CLASS [id number] Diagnos is: ICD-10- CM Y93.42 Activit y, yoga ZANVETTOR, MARY KATE 08/31 [facility] EXERCISE CLASS [id number] Diagnos is: ICD-10- CM Y93.42 Activit y, yoga ZANVETTOR, MARY KATE 09/03 [facility] En[facility] [id number] 09/04 [facility] STRESS MGMT CLASS [id number] Diagnos is: ICD-10- CM Y93.42 Activit y, yoga ZANVETTOR, MARY KATE 09/07 [facility] EXERCISE CLASS [id number] Diagnos is: ICD-10- CM Y93.42 Activit y, yoga ZANVETTOR, MARY KATE 09/10 [facility] Out[facility] En[facility] [id number] 09/14 [facility] COLLJ & INTERPJ DATA EA 30 D [id number] Diagnos is: ICD-10- CM G47.39 Other sleep apnea RAYNE CARPIO A 09/14 [facility] EXERCISE CLASS [id number] Diagnos is: ICD-10- CM Y93.42 Activit y, yoga ZANVEBINDU, MARY KATE 09/15 [facility] En[facility] [id number] IZAIAH,CAR MEN F 09/16 [facility] En[facility] [id number] 09/21 [facility] En[facility] [id number] 09/22 [facility] [place] En[facility] [id number] 09/22 [facility] [place] En[facility] [id number] 09/22 [facility] En[facility] [id number] 09/22 [facility] En[facility] [id number] 09/25 [facility] [place] En[facility] [id number] 09/25 [facility] EXERCISE CLASS [id number] Diagnos is: ICD-10- CM Y93.42 Activit y, yoga ZANVETTOR, MARY KATE 09/28 [facility] EXERCISE CLASS [id number] Diagnos is: ICD-10- CM Y93.42 Activit y, yoga ZANVETTOR, MARY KATE 10/01 [facility] En[facility] [id number] 10/02 [facility] En[facility] [id number] 10/02 [facility] Encounter [id number] 10/05 [facility] EXERCISE CLASS [id number] Diagnos is: ICD-10- CM Y93.42 Activit y, yoga ZANVETTOR, MARY KATE 10/05 [facility] RPR&REFITG SPECT XCP APHAKIA [id number] Diagnos is: ICD-10- CM Z46.0 Encount er for fit/adj st of spectac les and contact lenses KARYN,A JAQUI J 10/05 [facility] EXERCISE CLASS [id number] Diagnos is: ICD-10- CM Y93.42 Activit y, yoga ZANVETTOR, MARY KATE 10/08 [facility] Outpatient Encounter [id number] 10/09 [facility] Out[facility] Encounter [id number] 10/12 [facility] EXERCISE CLASS [id number] Diagnos is: ICD-10- CM Y93.42 Activit y, yoga ZANVETTOR, MARY KATE 10/12 [facility] Out[facility] Encounter [id number] 10/14 [facility] EXERCISE CLASS [id number] Diagnos is: ICD-10- CM Y93.42 Activit y, yoga ZANVETTOR, MARY KATE 10/15 [facility] Out[facility] Encounter [id number] 10/16 [facility] Out[facility] Encounter [id number] 10/16 [facility] Outpatient Encounter [id number] 10/16 [facility] EXERCISE CLASS [id number] Diagnos is: ICD-10- CM Y93.42 Activit y, yoga ZANVETTOR, MARY KATE 10/19 [facility] Out[facility] Encounter [id number] 10/21 [facility] EXERCISE CLASS [id number] Diagnos is: ICD-10- CM Y93.42 Activit y, yoga ZANVETTOR, MARY KATE 10/22 [facility] Outpatient Encounter [id number] 10/23 [facility] EXERCISE CLASS [id number] Diagnos is: ICD-10- CM Y93.42 Activit y, yoga ZANVETTOR, MARY KATE 10/26 [facility] Out[facility]counter [id number]/30 [facility] Out[facility]counter [id number] 10/30 [facility] Out[facility] Encounter [id number] 10/30 [facility] EXERCISE CLASS [id number] Diagnos is: ICD-10- CM Y93.42 Activit y, yoga ZANVETTOR, MARY KATE 11/02 [facility] OFFICE O/P NEW LOW 30 MIN [id number] Diagnos is: ICD-10- CM G25.81 Restles s legs syndrom e GAUNYA,[facility] ISTOPHER M 11/02 [facility]ERCISE CLASS [id number] Diagnos is: ICD-10- CM Y93.42 Activit y, yoga ZANVETTOR, MARY KATE 11/05 [facility] INFRARED THERAPY [id number] Diagnos is: ICD-10- CM M54.50 Low back pain, unspeci fied [facility] 11/05 [facility] EXERCISE CLASS [id number] Diagnos is: ICD-10- CM Y93.42 Activit y, yoga ZANVETTOR, MARY KATE 11/09 [facility] Outpatient Encounter [id number] 11/11 [facility] INFRARED THERAPY [id number] [id number] Diagnos is: ICD-10- CM R20.2 Paresth esia of skin [facility] Outpatient [facility]counter [id number]/12 [facility] Outpatient Encounter [id number] 11/13 [facility] EXERCISE CLASS [id number] Diagnos is: ICD-10- CM Y93.42 Activit y, yoga ZANVETTOR, MARY KATE 11/17 [facility] Outpatient Encounter [id number] 11/17 [facility] INFRARED THERAPY [id number] [id number] Diagnos is: ICD-10- CM M79.675 Pain in left toe(s) JACEK DENNISON ISTOPHER M 11/19 [facility] EXERCISE CLASS [id number] [id number] Diagnos is: ICD-10- CM Y93.42 Activit y, yoga ZANVETTOR, MARY KATE 11/19 [facility] Outpatient Encounter [id number] 11/26 [facility] Out[facility] Encounter [id number] [id number] 11/27 [facility] Out[facility] Encounter [id number] [id number] 11/27 [facility] Outpatient Encounter [id number] [id number] 11/30 [facility] HC PRO PHONE CALL 5-10 MIN [id number] [id number] Diagnos is: ICD-10- CM G47.33 Obstruc tive sleep apnea (adult) (pediat griselda) RAYNE CARPIO 12/01 [facility] EXERCISE CLASS [id number] [id number] Diagnos is: ICD-10- CM Y93.42 Activit y, yoga ZANVETTOR, MARY KATE 12/01 [facility] INFRARED THERAPY [id number] Diagnos is: ICD-10- CM M25.569 Pain in unspeci fied knee GAUNROSY,CHR ISTOPHER M 12/01 [facility] EXERCISE CLASS [id number] [id number] Diagnos is: ICD-10- CM Y93.42 Activit y, yoga ZANVETTOR, MARY KATE 12/03 [facility] Outpatient Encounter [id number] IZAIAHCAR MEN F 12/04 [facility] EXERCISE CLASS [id number] [id number] Diagnos is: ICD-10- CM Y93.42 Activit y, yoga ZANVETTOR, MARY KATE 12/07 [facility] Outpatient Encounter [id number] [id number]/07 [facility] EXERCISE CLASS [id number] [id number] Diagnos is: ICD-10- CM Y93.42 Activit y, yoga ZANVETTOR, MARY KATE 12/10 [facility] Outpatient Encounter [id number] 12/11 [facility] EXERCISE CLASS [id number] [id number] Diagnos is: ICD-10- CM Y93.42 Activit y, yoga ZANVETTOR, MARY KATE 12/14 [facility] ACUPUNCT W/O STIMUL ADDL 15M [id number] [id number] Diagnos is: ICD-10- CM M54.50 Low back pain, unspeci fied GAUNYA,CHR ISTOPHER M 12/14 [facility] SELF CARE MNGMENT TRAINING [id number] [id number] Diagnos is: ICD-10- CM M41.9 Scolios is, unspeci fied DANNEN,TERESA HAEL 12/16 [facility] EXERCISE CLASS [id number] [id number] Diagnos is: ICD-10- CM Y93.42 Activit y, yoga ZATANIKA MARY KATE 12/17 [facility] Outpatient Encounter [id number] 12/18 [facility] OFFICE O/P EST MOD 30 MIN [id number] [id number] Diagnos is: ICD-10- CM M54.50 Low back pain, unspeci fied HERIBERTOLEA,CAR MEN F 12/21 [facility] Outpatient Encounter [id number] 12/21 [facility] Outpatient Encounter [id number] [id number] 12/21 [facility] Outpatient Encounter [id number] [id number] 12/21 [facility] Outpatient Encounter [id number] [id number] 12/21 [facility] Outpatient Encounter [id number] [id number] 12/28 [facility] Out[facility] Encounter [id number] [id number] 12/28 [facility] Outpatient Encounter [id number] [id number] 12/30 [facility] Outpatient Encounter [id number] [id number] 12/30 [facility] Outpatient Encounter [id number] [id number] 12/31 [facility] EXERCISE CLASS [id number] [id number] Diagnos is: ICD-10- CM Y93.42 Activit y, yoga ZANVETTOR, MARY KATE 12/31 [facility] [place] THERAPEUTI [place] EXERCISES [id number] [id number] Diagnos is: ICD-10- CM M41.9 Scolios is, unspeci fied DANNEN,TERESA HAEL 01/01 [place] [facility] Out[facility] Encounter [id number] 01/01 [facility] Out[facility] Encounter [id number] [id number] 01/04 [facility] Out[facility] Encounter [id number] 01/05 [facility] EXERCISE CLASS [id number] [id number] Diagnos is: ICD-10- CM Y93.42 Activit y, yoga ZANVETTOR, MARY KATE 01/05 [facility] THERAPEUTI C EXERCISES [id number] [id number] Diagnos is: ICD-10- CM M41.9 Scolios is, unspeci fied YULIA,TERESA DORADO 01/06 [place] [facility] Outpatient Encounter [id number] 01/07 [facility] EXERCISE CLASS [id number] [id number] Diagnos is: ICD-10- CM Y93.42 Activit y, yoga ZANVETTOR, MARY KATE 01/07 [facility] Out[facility] Encounter [id number] 01/08 [facility] OFFICE O/P NEW MOD 45 MIN [id number] [id number] Diagnos is: ICD-10- CM M54.59 Other low back pain JABIERVIRI RA 01/08 [facility] Out[facility] Encounter [id number] 01/08 [facility] Outpatient Encounter [id number] [id number] 01/12 [facility] EXERCISE CLASS [id number] [id number] Diagnos is: ICD-10- CM Y93.42 Activit y, yoga ZANVETTOR, MARY KATE 01/12 [facility] Outpatient Encounter [id number] [id number] 01/12 [facility] Out[facility] Encounter [id number] [id number] 01/13 [facility] [place] SELF CARE MNGMENT TRAINING [id number] [id number] Diagnos is: ICD-10- CM M41.9 Scolios is, unspeci fied DANNEN,TERESA HAEL 01/13 [place] [facility] EXERCISE CLASS [id number] 1. Diagnos is: ICD-10- CM Y93.42 Activit y, yoga ZANVETTOR, MARY KATE 01/14 [facility] Outpatient Encounter [id number] 1.01/14 [facility] Outpatient Encounter [id number] 1.01/20 [facility] [place] THERAPEUTI C EXERCISES [id number] [id number] Diagnos is: ICD-10- CM M41.9 Scolios is, unspeci fied DANNEN,TERESA HAEL 01/20 [place] [facility] EXERCISE CLASS [id number] [id number] Diagnos is: ICD-10- CM Y93.42 Activit y, yoga ZANVETTOR, MARY KATE 01/21 [facility] EXERCISE CLASS [id number] [id number] Diagnos is: ICD-10- CM Y93.42 Activit y, yoga ZANVETTOR, MARY KATE 01/25 [facility] INFRARED THERAPY [id number] [id number] Diagnos is: ICD-10- CM M79.674 Pain in right toe(s) JACEK DENNISON ISTOPHER M 01/27 [facility] EXERCISE CLASS [id number] [id number] Diagnos is: ICD-10- CM Y93.42 Activit y, yoga PAT MOORECA 01/28 [facility] OFFICE O/P EST LOW 20 MIN [id number] [id number] Diagnos is: ICD-10- CM L60.3 Nail dystrop hy ROSS,CHARL ES F 01/29 [place] [facility] Outpatient Encounter [id number] [id number] 01/29 [facility] Outpatient Encounter [id number] [id number] 01/29 [facility] MANUAL THERAPY 1/> REGIONS [id number] [id number] Diagnos is: ICD-10- CM M54.59 Other low back pain VIRI EUGENE RA 02/01 [facility] Out[facility] Encounter [id number] [id number] 02/01 [facility] Outpatient Encounter [id number] 02/03 [facility] INFRARED THERAPY [id number] [id number] Diagnos is: ICD-10- CM M25.561 Pain in right knee MANOHARUNROSYCHR ISTOPHER M 02/03 [facility] Out[facility] Encounter [id number] 1. MARCE BLISS MEN F 02/04 [facility] COMPRE [place]PH EXAM EST PT 1/ [id number] [id number] Diagnos is: ICD-10- CM H25.813 Combine d forms of age-rel ated catarac t, bilater al VINCE MYERS E 02/08 [facility] CHIROPRACT MANJ 1-2 REGIONS [id number] [id number] Diagnos is: ICD-10- CM M54.59 Other low back pain VIRI EUGENE RA 02/08 [facility] FIT SPECTACLES MULTIFOCAL [id number] [id number] Diagnos is: ICD-10- CM Z46.0 Encount er for fit/adj st of spectac les and contact lenses VINCE MYERS E 02/08 [facility] Out[facility] Encounter [id number] 02/09 [facility] Outpatient Encounter [id number] [id number] 02/12 [facility] EXERCISE CLASS [id number] [id number] Diagnos is: ICD-10- CM Y93.42 Activit y, yoga TERESA MARY KATE 02/15 [facility] Out[facility] Encounter [id number] 02/18 [facility] HC PRO PHONE CALL 11-20 MIN [id number] Diagnos is: ICD-10- CM Z72.3 Lack of physica l exercis DANIELA Smith 02/18 [facility] Out[facility] Encounter [id number] 1.02/18 [facility] Outpatient Encounter [id number] 02/19 [facility] MEDICAL NUTRITION INDIV IN [id number] Diagnos is: ICD-10- CM E66.09 Other obesity due to excess calorie s BUTCH ANDERSON P 02/24 [place] [facility] Outpatient Encounter [id number] 02/24 [facility] [place]LISTED PHYSCL MED/[place] [id number] Diagnos is: ICD-10- CM Z72.3 Lack of physica l exercFLORA Azar 02/26 [facility] COLLJ & INTERPJ DATA EA 30 D 41819-863 1. Diagnos is: ICD-10- CM G47.33 Obstruc tive sleep apnea (adult) (pediat griselda) REGINA CLARK P 03/01 [facility] Out[facility] Encounter [id number] [id number] 03/02 [facility] Outpatient Encounter [id number]/03 [facility] STRESS MGMT CLASS [id number] [id number] Diagnos is: ICD-10- CM Y93.42 Activit y, yoga MARY KATE MOORE 03/04 [facility] HLTH BHV IVNTJ GRP EA ADDL [id number] [id number] Diagnos is: ICD-10- CM Z73.3 Stress, not elsewhe re classif ied VIRI GAVIRIA RA 03/09 [facility] WELLNESS ASSESSMENT BY [facility] [id number] [id number] Diagnos is: ICD-10- CM 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 JANIE Dow 03/11 [facility] Out[facility] Encounter [id number] [id number] 03/15 [facility] Out[facility] Encounter [id number] 1.03/18 [facility] Out[facility] Encounter [id number] 1.03/18 [facility] Outpatient Encounter [id number] 03/22 [facility] Outpatient Encounter [id number] [id number]/23 [facility] Outpatient Encounter [id number] [id number]/23 [facility] Outpatient Encounter [id number] [id number] 03/24 [facility] Out[facility] Encounter [id number] 03/25 [facility] EXERCISE CLASS [id number] [id number] Diagnos is: ICD-10- CM Y93.42 Activit y, yoga ZANVETTCHANO, MARY KATE 03/25 [facility] Out[facility] Encounter [id number] [id number] 04/01 [facility] Out[facility] Encounter [id number] 04/06 [facility] Outpatient Encounter [id number] [id number] 04/06 [facility] OFFICE O/P EST MOD 30 MIN [id number] [id number] Diagnos is: ICD-10- CM M54.50 Low back pain, unspeci fied STELEA,CAR MEN F 04/06 [place] [facility] Outpatient Encounter [id number] 04/07 [facility] EXERCISE CLASS [id number] [id number] Diagnos is: ICD-10- CM Y93.42 Activit y, yoga ZANVETTOR, MARY KATE 04/08 [facility] EXERCISE CLASS [id number] [id number] Diagnos is: ICD-10- CM Y93.42 Activit y, yoga MARY KATE MOORE 04/12 [facility] Out[facility] Encounter [id number] 04/14 [facility] OFF/OP CONSLTJ NEW/[place] HI 55 [id number] 1. Diagnos is: ICD-10- CM M54.16 Radicul opathy, lumbar region CELIA DENNISONM S 04/15 [facility] Outpatient Encounter [id number]/15 [facility] Outpatient Encounter [id number] [id number] 04/16 [facility] Outpatient Encounter [id number] 04/16 [facility] QNHP OL DIG ASSMT&MGMT 5-10 [id number] 1. Diagnos is: ICD-10- CM M54.16 Radicul opathy, lumbar region LATOSHA,BET ABDELRAHMAN S 04/19 [facility] EXERCISE CLASS [id number] [id number] Diagnos is: ICD-10- CM Y93.42 Activit y, yoga MARY KATE MOORE 04/19 [facility] Outpatient Encounter [id number] 04/21 [facility] INFRARED THERAPY [id number] [id number] Diagnos is: ICD-10- CM M54.50 Low back pain, unspeci fied JESI,CHR ISTOPHER M 04/22 [facility] Out[facility] Encounter [id number] 04/23 [facility] Outpatient Encounter [id number] [id number] 04/27 [facility] Outpatient Encounter [id number] [id number] Diagnos is: ICD-10- CM 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 En[facility] [id number] [id number] 05/03 [facility] Out[facility]counter [id number] [id number] 05[facility]05 [facility] Out[facility]counter [id number] 1.05/06 [facility] Out[facility]counter [id number] 05/10 [facility] Out[facility]counter [id number] 05/12 [facility] Out[facility] Encounter [id number] 1.05/12 [facility] Out[facility]counter [id number] 05/14 [facility] Out[facility]counter [id number] 1.05/14 [facility] SELF CARE MNGMENT TRAINING [id number] [id number] Diagnos is: ICD-10- CM 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 Out[facility] Encounter [id number]/18 [facility] Out[facility] Encounter [id number] 05/21 [facility] Out[facility]counter [id number] 05/24 [facility] Out[facility]counter [id number] 05/24 [facility] Encounter [id number] 05/25 [facility]counter [id number] 05/26 [facility]counter [id number] 05/28 [facility]counter [id number] 05/31 [facility]counter [id number] 05/31 [facility] Out[facility] Encounter [id number] 06/02 [facility] EXERCISE CLASS [id number] 1. 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 DANNEN,TERESA HAEL 06/08 [place] [facility] EXERCISE CLASS [id number] Diagnos is: ICD-10- CM Y93.42 Activit y, yoga ZANVETTOR, MARY KATE 06/10 [facility] Out[facility] Encounter [id number] 06/10 [facility] Out[facility] Encounter [id number] 06/11 [facility] [place] OFFICE O/P EST LOW 20 MIN [id number] Diagnos is: ICD-10- CM L60.3 Nail dystrop hy DILLON,CHARL ES F 06[facility]11 [place] [facility] [id number] Diagnos is: ICD-10- CM 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 YULIA,TERESA HA 06/11 [place] [facility] Outpatient Encounter [id number] 1.06/14 [facility] INFRARED THERAPY [id number] Diagnos is: ICD-10- CM M54.16 Radicul opathy, lumbar region GAUNYA,CHR ISTOPHER M 06/14 [facility] LAR REEDUCATIO N [id number] Diagnos is: ICD-10- CM 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 TERESA BENDER HAEL 06/15 [place] [facility] Outpatient Encounter [id number] [facility] Out[facility] Encounter [id number] [facility]counter [id number] 06/18 [facility] Out[facility] Encounter [id number] 06/21 [facility] OFFICE O/P EST HI 40 MIN [id number] Diagnos is: ICD-10- CM 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 CELIA DENNISON S 06/22 [facility] [place] THERAPEUTI C EXERCISES [id number] Diagnos is: ICD-10- CM 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 TERESA BENDER 06/22 [place] [facility] Outpatient Encounter [id number] 06/23 [facility] EXERCISE CLASS [id number] Diagnos is: ICD-10- CM Y93.42 Activit y, yoga MARY KATE MOORE 06/24 [facility] Out[facility] Encounter [id number] [facility] Out[facility]counter [id number] [facility] Out[facility] Encounter [id number] 06/28 [facility] NQHP OL DIG ASSMT&MGMT 5-10 [id number] Diagnos is: ICD-10- CM E04.1 Nontoxi c single thyroid nodule SOVEROW,CH RISTY A 07/01 [facility] EXERCISE CLASS [id number] Diagnos is: ICD-10- CM Y93.42 Activit y, yoga ZAAdanVEBINDU, MARY KATE 07/01 [facility] Out[facility] Encounter [id number] 07/02 [facility] Out[facility] Encounter [id number] 07/05 [facility] EXERCISE CLASS [id number] Diagnos is: ICD-10- CM Y93.42 Activit y, yoga ZANVETTOR, MARY KATE 07/06 [facility] [place] O/P EST HI 40 MIN [id number] Diagnos is: ICD-10- CM 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 DANIELA LAKE 07/07 [place] [facility] Outpatient Encounter [id number] DANIELA LAKE C 07/07 [facility] Out[facility] Encounter [id number] 07/07 [facility] Out[facility] Encounter [id number] 07/08 [facility] Out[facility] Encounter [id number] 07/08 [facility] Out[facility] Encounter [id number] 07/09 [facility] Out[facility] Encounter [id number] 07/13 [facility] Out[facility] Encounter [id number] 07/14 [facility] EXERCISE CLASS [id number] Diagnos is: ICD-10- CM Y93.42 Activit y, yoga ZANVEBINDU, MARY KATE 07/15 [facility] Out[facility] Encounter [id number] 07/16 [facility] Outpatient Encounter [id number] [id number] 07/19 [facility] SELF CARE MNGMENT TRAINING [id number] [id number] Diagnos is: ICD-10- CM L91.0 Hypertr ophic scar EMILIADOUG,TERESA HAEL 07/19 [place] [facility] Outpatient Encounter [id number] 07/21 [facility] INFRARED THERAPY [id number] [id number] Diagnos is: ICD-10- CM M54.50 Low back pain, unspeci fied GAUNYA,CHR ISTOPHER M 07/23 [facility] Out[facility] Encounter [id number] 07/27 [facility] Out[facility] Encounter [id number] [id number] 07/30 [facility] Out[facility] Encounter [id number] [id number] 08/02 [facility] Out[facility] Encounter [id number] [id number] 08/03 [facility] Out[facility]counter [id number] [id number] 08/04 [facility] Outpatient Encounter [id number] [id number] 08/06 [facility] Out[facility]counter [id number] [id number] 08/06 [facility] Out[facility] Encounter [id number] [id number] 08/11 [facility] SELF CARE MNGMENT TRAINING [id number] 1BY. [id number] Diagnos is: ICD-10- CM L91.0 Hypertr ophic scar TERESA BENDER 08/11 [place] [facility] Outpatient Encounter [id number] 08/12 [facility] Out[facility] Encounter [id number] 08/18 [facility] RPR&REFITG SPECT XCP APHAKIA [id number] Diagnos is: ICD-10- CM Z46.0 Encount er for fit/adj st of spectac les and contact lenses Olivia BOSS 08/18 [facility] Out[facility] Encounter [id number] 08/18 [facility] EXERCISE CLASS [id number] Diagnos is: ICD-10- CM Y93.42 Activit y, yoga ZANVETTOR, MARY KATE 08/19 [facility] Outpatient Encounter [id number] 08/19 [facility] Outpatient Encounter [id number] [id number] 08/23 [facility] Outpatient Encounter [id number] [id number]/24 [facility] Out[facility] Encounter [id number] [id number]/25 [facility] OFFICE O/P EST MOD 30 MIN [id number] Diagnos is: ICD-10- CM M54.16 Radicul opathy, lumbar region CUTCELIA SHORE S 08/25 [facility] Outpatient Encounter [id number] 08/25 [facility] EXERCISE CLASS [id number] [id number] Diagnos is: ICD-10- CM Y93.42 Activit y, yoga ZANVETTOR, MARY KATE 08/26 [facility] Outpatient Encounter [id number] 08/27 [facility] EXERCISE CLASS [id number] Diagnos is: ICD-10- CM Y93.42 Activit y, yoga ZANVETTOR, MARY KATE 08/30 [facility] Outpatient Encounter [id number] [id number] 09/01 [facility] Out[facility] Encounter [id number] 09/03 [facility] EXERCISE CLASS [id number] [id number] Diagnos is: ICD-10- CM Y93.42 Activit y, yoga ZANVETTOR, MARY KATE 09/06 [facility] EXERCISE CLASS [id number] Diagnos is: ICD-10- CM Y93.42 Activit y, yoga ZANVETTOR, MARY KATE 09/09 [facility] Outpatient Encounter [id number] 09/10 [facility] EXERCISE CLASS [id number] Diagnos is: ICD-10- CM Y93.42 Activit y, yoga ZANVETTOR, MARY KATE 09/14 [facility] Outpatient Encounter [id number] 09/15 [facility] INFRARED THERAPY [id number] Diagnos is: ICD-10- CM M54.50 Low back pain, unspeci fied MANOHARUNROSY,CHR ISTOPHER M 09/16 [facility] Outpatient Encounter [id number] 09/17 [facility] EXERCISE CLASS [id number] 1. Diagnos is: ICD-10- CM Y93.42 Activit y, yoga TERESA, MARY KATE 09/20 [facility] OFFICE O/P EST LOW 20 MIN [id number] Diagnos is: ICD-10- CM L60.3 Nail dystrop hy ROSS,CHARAnu ES F 09/21 [place] [facility] Outpatient Encounter [id number] 09/22 [facility] EXERCISE CLASS [id number] [id number] Diagnos is: ICD-10- CM Y93.42 Activit y, yoga JOHANNAVEBINDU, MARY KATE 09/23 [facility] Out[facility] Encounter [id number] 09/24 [facility] Out[facility] Encounter [id number] [id number] 09/27 [facility] Outpatient Encounter [id number] 09/29 [facility] Outpatient Encounter [id number] 10/01 [facility] EXERCISE CLASS [id number] Diagnos is: ICD-10- CM Y93.42 Activit y, yoga ZANVETTOR, MARY KATE 10/04 [facility] Outpatient Encounter [id number]/07 [facility] Outpatient Encounter [id number] [id number]/08 [facility] Outpatient Encounter [id number]/11 [facility] EXERCISE CLASS [id number] [id number] Diagnos is: ICD-10- CM Y93.42 Activit y, yoga ZAAdanVETTOR, MARY KATE 10/11 [facility] Out[facility] Encounter [id number] 10/12 [facility] Outpatient Encounter [id number]/13 [facility] NQHP OL DIG ASSMT&MGMT 5-10 [id number] Diagnos is: ICD-10- CM E03.9 Hypothy roidism , unspeci fied SOVEROW,CH RISTY A 10/14 [facility] Outpatient Encounter [id number] [id number] 10/15 [facility] Outpatient Encounter [id number] 10/18 [facility] Outpatient Encounter [id number] 10/18 [facility] EXERCISE CLASS [id number] Diagnos is: ICD-10- CM Y93.42 Activit y, yoga ZANVETTOR, MARY KATE 10/18 [facility] Out[facility] Encounter [id number] 10/20 [facility] Outpatient Encounter [id number] [id number] 10/20 [facility] EXERCISE CLASS [id number] Diagnos is: ICD-10- CM Y93.42 Activit y, yoga ZANVETTOR, MARY KATE 10/21 [facility] EXERCISE CLASS [id number] Diagnos is: ICD-10- CM Y93.42 Activit y, yoga ZANVETTOR, MARY KATE 10/25 [facility] Outpatient Encounter [id number] 10/25 [facility] Outpatient [facility]counter [id number] [id number] 10/26 [facility] Outpatient Encounter [id number] 10/27 [facility] EXERCISE CLASS [id number] Diagnos is: ICD-10- CM Y93.42 Activit y, yoga ZANVETTOR, MARY KATE 10/28 [facility] Outpatient Encounter [id number] 10/29 [facility] EXERCISE CLASS [id number] Diagnos is: ICD-10- CM Y93.42 Activit y, yoga ZANVETTOR, MARY KATE 11/01 [facility] Outpatient Encounter [id number] 11/03 [facility] Outpatient Encounter [id number] 11/03 [facility] EXERCISE CLASS [id number] Diagnos is: ICD-10- CM Y93.42 Activit y, yoga ZANVETTOR, MARY KATE 11/04 [facility] INFRARED THERAPY [id number] Diagnos is: ICD-10- CM M54.50 Low back pain, unspeci fied GAUNYA,CHR ISTOPHER M 11/04 [facility] Outpatient Encounter [id number] 11/05 [facility] EXERCISE CLASS [id number] Diagnos is: ICD-10- CM Y93.42 Activit y, yoga TERESA, MARY KATE 11/08 [facility] Out[facility] Encounter [id number] 11/08 [facility] Out[facility] Encounter [id number]/09 [facility] Out[facility] Encounter [id number] [id number] 11/09 [facility] STRESS MGMT CLASS [id number] Diagnos is: ICD-10- CM Y93.42 Activit y, yoga TERESA, MARY KATE 11/11 [facility] Out[facility] Encounter [id number] 11[facility]12 [facility] Outpatient Encounter [id number] 11/12 [facility] Outpatient Encounter [id number] 11/18 [facility] Outpatient [facility]counter [id number] 11/19 [facility] Out[facility]counter [id number] 11/22 [facility] Out[facility]counter [id number] [id number] 11/24 [facility] Outpatient Encounter [id number] 11/26 [facility] Outpatient Encounter [id number] 11/26 [facility] Outpatient Encounter [id number] 11/29 [facility] EXERCISE CLASS [id number] Diagnos is: ICD-10- CM Y93.42 Activit y, yoga ZANVETTOR, MARY KATE 11/30 [facility] Out[facility] Encounter [id number] 12/01 [facility] Outpatient Encounter [id number] 12/03 [facility] EXERCISE CLASS [id number] Diagnos is: ICD-10- CM Y93.42 Activit y, yoga ZANVETTOR, MARY KATE 12/07 [facility] Out[facility] Encounter [id number] 12/08 [facility] Outpatient [facility]counter [id number] 12/10 [facility] Outpatient [facility]counter [id number] 12/17 [facility] Outpatient Encounter [id number] 12/17 [facility] OFFICE O/P EST MOD 30 MIN [id number] Diagnos is: ICD-10- CM 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 Out[facility] Encounter [id number] 12/17 [facility] Out[facility]counter [id number] 12/22 [facility] Outpatient Encounter [id number] 12/27 [facility] Outpatient Encounter [id number] 12/28 [facility] Out[facility] Encounter [id number] 12/28 [facility] Outpatient Encounter [id number] Diagnos is: ICD-10- CM G47.33 Obstruc tive sleep apnea (adult) (pediat griselda) Terri REES 12/28 [facility] Out[facility] Encounter [id number] 12/29 [facility] (6[facility]GE) PH1 ASSMT&MGMT NQHP 5-10 [id number] [id number] Diagnos is: ICD-10- CM G47.33 Obstruc tive sleep apnea (adult) (pediat griselda) ABIOLA STERLING E E 12/29 [facility] (6[facility] INFRARED THERAPY [id number] Diagnos is: ICD-10- CM M54.50 Low back pain, unspeci fied JESI,CHR ISTOPHER M 12/29 [facility] Outpatient [facility]counter [id number] 12/31 [facility] Outpatient Encounter [id number] 01/03 [facility] EXERCISE CLASS [id number] Diagnos is: ICD-10- CM Y93.42 Activit y, yoga ZANVETTOR, MARY KATE 01/03 [facility] EXERCISE CLASS [id number] Diagnos is: ICD-10- CM Y93.42 Activit y, yoga ZANVETTOR, MARY KATE 01/06 [facility] EXERCISE CLASS [id number] [id number] Diagnos is: ICD-10- CM Y93.42 Activit y, yoga ZANVETTOR, MARY KATE 01/11 [facility] Outpatient Encounter [id number] 01/14 [facility] Outpatient Encounter [id number] 01[facility]17 [facility] Outpatient Encounter [id number] 01/19 [facility] Outpatient Encounter [id number] 01/20 [facility] Social History Combined list of available smoking, tobacco, and other social history from Department of Defense and Veterans Affairs facilities. Social History Type Response Date Comment Sourc e Tobacco smoking status ARIS VA-TOBACCO NEVER USED 04/06/2024 [facility] D History of tobacco use VA-TOBACCO NEVER USED 04/08/2023 [facility] History of tobacco use VA-TOBACCO NEVER USED 08/09/2021 [facility] History of tobacco use VA-TOBACCO NEVER USED 08/18/2020 [facility] D History of tobacco use VA-TOBACCO NEVER USED 12/15/2018 [facility] D History of tobacco use LIFETIME NON-TOBACCO USER 06/11/2017 [facility] History of tobacco use LIFETIME NON-TOBACCO USER 01/01/2016 [facility] History of tobacco use LIFETIME NON-SMOKER 01/16/2005 [facility] History of tobacco use LIFETIME NON-SMOKER 11/29/2003 [facility] History of tobacco use LIFETIME NON-SMOKER 01/07/2001 [facility] Plan of Care List of future care activities from Department of Veterans Affairs facilities. Additional future care activities may be listed in the Assessment and Plan section. Date/Time Care Activity Care Activity Detail Facili ty 01/21/2025 AMBULATORY - NONE AMBULATORY - NONE [facility]
--- NOTE | 2025-01-20 14:54 | A.OFFPC_ITS ---
Vital Signs 01/20/25 14:55 01/20/25 15:33 Height 6 ft 3 in Weight 251 lb BMI 31.4 BP 160/80 H 138/70 Blood Pressure Location Lt brachial Lt brachial Position Sitting Sitting Pulse 75 Pulse Source Pulse Oximeter Temp 97.7 F Pulse Oximetry (%) 97 Intake Visit Reasons: [facility]/kidney stones d/c 01/14 Office Aide Required: No Accompanied by: Self / Same As Patient Allergies No Known Allergies (No Known Allergies*) Allergy (Verified 01/20/25 15:07) Medication List - Last Reconciled 01/20/25 by Mabel Quintanilla PA-C allopurinol 100 mg PO DAILY 90 days atorvastatin 10 mg PO DAILY 90 days diltiazem HCl CD (Cardizem CD) 120 mg PO DAILY levothyroxine 137 mcg PO DAILY metoprolol succinate ER 50 mg PO DAILY niacin 500 mg PO DAILY bydhw-2d-lmt-epa-fish oil 300-1,000 mg ([place]-3 Fish Oil) 1 cap PO DAILY potassium citrate ER 20 mEq (2 x 10 mEq (1,080 mg)) PO BID 90 days rivaroxaban 20 mg PO DAILY Tobacco use date assessed: 01/20/25 Fall risk assessment: No Falls in past year Last assessed Fall Risk: 01/20/25 Dental Screening Dental Screen Date: 01/20/25 Did you have a dental visit in the last 12 months?: No Did you have a dental problem in the last 6 months where you did not have access to dental care?: No Was dental information given to patient?: No HPI [facility]/kidney stones d/c 01/14 HPI Details 69-year-old male with past medical histo ry of GERD, obesity, hypercholesterolemia, obstructive sleep apnea, hypertension, pulmonary embolism, thyroid cancer, paroxysmal atrial fibrillation last seen 10/[address] Reyes coming in for hospital discharge follow up.? In review of the notes, patient was seen and [facility] 12/23/1908/12/[address] abdomen pelvis showed 7 mm stone in the urinary bladder admitted for further observation. He is also noted to have a liver cyst. Flank pain deemed to be musculoskeletal in nature advised to follow up with PCP. Presenting with chronic back pain. The back pain has been ongoing for several years, with a recent exacerbation leading to hospitalization. The pain is primarily on the right side and worsens with movement, though it can occur at rest. The patient has a history of numbness in the feet for several years, attributed to a long-standing back issue. Previous interventions include Tylenol, physical therapy, and muscle relaxants, with limited relief. The patient has tried various exercises such as yoga and cheyanne chi, but these have not provided significant improvement. He did have an MRI in 2023 and is awaiting an evaluation from [facility] for back surgeon. The patient passed a kidney stone recently, which was initially painful but has since resolved. [facility] Medical History Hypothyroidism History of thyroid cancer PAF (paroxysmal atrial fibrillation) Hepatic cyst Thyroid cancer Arthritis Vitamin D deficiency Multinodular thyroid Thyroid enlargement Acute respiratory failure with hypoxia Bacteremia Left bundle branch block Paroxysmal atrial fibrillation Atrial fibrillation with rapid ventricular response Scoliosis Hip pain Polycystic liver disease Tubular adenoma of colon Hypertension Obstructive sleep apnea History of kidney stones Hypercholesterolemia Obesity GERD (gastroesophageal reflux disease) Surgical History History of appendectomy History of colonoscopy History of lithotripsy History of removal of cyst History of thyroidectomy Family History Father Medical history unknown Mother Medical history unknown Social History Household Members: None Housing: House Do you presently have visiting nurse or other home services: No Alcohol intake: never Comment: HX SCOLIOSIS, FALL OUTSIDE 2 MONTHS AGO. stopped 2021 Patient Tobacco Use Status: Never used Tobacco e-Cigarette/Vaping Use: Never Used Second Hand Smoke Exposure: No service: No Current occupational status: retired Cognitive needs: No Hearing needs: No Vision needs: Yes Questionnaire Thrive Questionnaire Date Thrive assessed: 09/29/24 I am a: Patient What is your living situation today?: I have a steady place to live Within the past 12 months, did the food you bought not last and you didn't have the money to get more?: I choose not to answer this question Within the past 12 months, did you worry whether your food would run out before you got money to buy more?: I choose not to answer this question Do you have trouble paying for medicines?: I choose not to answer this question Do you have trouble getting transportation to medical appointments?: No Do you have trouble paying your heating and electricity bill?: I choose not to answer this question Do you have trouble taking care of your child, family member or friend?: I choose not to answer this question Do you have trouble with day-to-day activities such as bathing, preparing meals, shopping, managing finances, etc.?: No Are you currently unemployed and looking for a job?: No Are you interested in more education?: I choose not to answer this question Please select the resources that you would like help with: None Currently or been in a relationship where the following occur: I choose not to answer THRIVE Score: 0 SANNA-7 AMB Questionnaire SANNA-7 Date SANNA - 7 assessed: 09/30/24 Source: Developed by Drs. Billy Sage, Ani Portillo, Rony Alavrez and colleagues, with an educational raymond from [employer]. Review of Systems Const Denies body aches, Denies chills, Denies fever(s) and Denies poor appetite Eyes Reports no additional complaints ENT Denies dizziness Card Denies chest pain, Denies lightheadedness and Denies dyspnea Resp Denies dyspnea GI Denies abdominal pain, Denies melena, Denies hematochezia, Denies nausea and Denies vomiting Denies hematuria, Denies dysuria, Denies urinary frequency and Denies urinary hesitancy Musc Reports no additional complaints and Denies abnormal gait Skin/Breast Reports system reviewed and no additional complaints, except as documented Neuro Denies abnormal gait and Denies dizziness Psych Reports no additional complaints Physical exam (Primary Care) Vital Signs: Last Vital Signs Temp 97.7 F 01/20/25 14:55 Pulse 75 01/20/25 14:55 BP 160/80 H 01/20/25 14:55 Pulse Ox 97 01/20/25 14:55 BMI result Body Mass Index 31.4 Tobacco/Smoking Status: Tobacco use Status Tobacco use date assessed 01/20/25 01/20/25 14:59 Patient Tobacco Use Status Never used Tobacco 01/20/25 14:59 e-Cigarette/Vaping Use Never Used 01/20/25 14:59 Thrive Assessment: Date of Thrive Assessment Date Thrive assessed 09/29/24 01/20/25 14:59 Currently or been in a relationship where the following occur: I choose not to answer Const General: cooperative, healthy appearing, comfortable and no acute distress Orientation/consciousness: patient oriented x3 HENNE Head: Yes normocephalic Ears: hearing grossly normal bilaterally General nose exam: Normal external nose present Eyes General: appearance normal, both eyes and all related structures Conjunctivae: conjunctivae normal Neck Neck: Yes full ROM and Yes no lymphadenopathy Resp Effort & Inspection: normal respiratory effort Auscultation: clear to auscultation bilaterally, no crackles, no rales, no rh onchi and no wheezes Cardio Rate: regular rate Rhythm: regular rhythm Back/Spine/Pelvis Other: Pain to palpation over right paraspinal muscles. No pain to palpation over entire spine Skin General skin exam: no rashes or lesions noted Neuro General: patient oriented x3 Gait exam (Neuro): Normal gait present Extrem Other: Intact strength and sensation in bilateral lower extremities General: Yes normal to inspection, Yes full ROM and No edema Psych Affect: normal affect Attitude: cooperative Insight: Good insight present (Psych) Judgement: Good judgement present (Psych) Coding Level of Care Code Est Pt Level 3 (74403) Diagnoses Essential hypertension I10 Hypertension type: essential hypertension Impaired glucose tolerance R73.02 Class 1 obesity due to excess calories without serious comorbidity with body m ass index (BMI) of 30.0 to 30.9 in adult E66.09; Z68.30 Obesity type: due to excess calories Obesity classification: adult class 1 (BMI 30 - 34.9) Serious obesity comorbidity presence: without serious comorbidity Body mass index: BMI 30.0-30.9 Nephrolithiasis N20.0 Lumbar spondylolysis M43.06 Hepatic cyst K76.89 Assessment & Plan Assessment & Plan (1) Hypertension: Code(s): I10 - Essential (primary) hypertension Category: Medical Qualifiers: Hypertension type: essential hypertension Qualified Code(s): I10 - Essential (primary) hypertension Plan: Continue on current blood pressure medication. Avoid salt intake and encourage healthy diet and regular exercise. (2) Impaired glucose tolerance: Code(s): R73.02 - Impaired glucose tolerance (oral) Category: Medical Plan: Decrease the amount of carbohydrates such as pasta, bread, rice, and potatoes and limit the amount of sweets. Although fruits are generally healthy they should be eaten in moderation as they are still high in sugar. (3) Obesity: Code(s): E66.9 - Obesity, unspecified Category: Medical Qualifiers: Obesity type: due to excess calories Obesity classification: adult class 1 (BMI 30 - 34.9) Serious obesity comorbidity presence: without serious comorbidity Body mass index: BMI 30.0-30.9 Qualified Code(s): E66.09 - Other obesity due to excess calories; Z68.30 - Body mass index [BMI]30.0-30.9, adult Plan: Healthy diet and regular exercise is encouraged. (4) Nephrolithiasis: Code(s): N20.0 - Calculus of kidney Category: Medical Plan: Continue to follow with Urology. Patient was thought to have passed a kidney stone during his last hospital admission and is currently asymptomatic at this time. Increase fluid intake. (5) Lumbar spondylolysis: Code(s): M43.06 - Spondylolysis, lumbar region Category: Medical Plan: Patient had a MRI completed in 2023 through [facility]. [facility] and was referred to [facility] in his waiting an appointment at this time. Patient is considering [facility] and agrees to reach out if she would like an appointment with their office. (6) Hepatic cyst: Code(s): K76.89 - Other specified diseases of liver Category: Medical Plan: Patient's recent CAT scan from [email or web address] redemonstrated a hepatic cyst however we were not able to confirm the measurements of the cyst. He does have a known hepatic cyst that has been stable from 1601-1011 but given we do not have definitive measurements of the new cyst we have taken a copy of the CAT scan which we will be compared to his 2023 cat scan. Patient provided a disc which was sent to [facility] for comparison. Consider GI referral Plan The plan involves monitoring the liver cyst for any changes, with a follow-up imaging study to ensure stability. The patient will continue with current manag ement for chronic back pain, including the use of Tylenol and muscle relaxants as needed. Referral to a campaign marketing specialist is considered for further evaluation and potential surgical intervention if conservative measures fail. Blood pressure will be monitored closely, and adjustments to antihypertensive therapy will be made if necessary. Follow-up appointments will be scheduled to reassess the patient's condition and response to the current treatment plan. This note was constructed using voice recognition software. While every effort has been made to ensure accuracy and assistant farm operations manager, still areas may have been included sometimes these areas may affect the content or meeting of the given symptoms. Total time spent caring for the patient today was 20 minutes. This includes time spent before the visit reviewing the chart, time spent during the visit, and time spent after the visit and documentation. Patient was informed and verbally consented to the use of an ambient scribe for clinic note documentation during this visit.
[2025-01-20 14:55] VITALS: BP 160/80; PULSE 75; TEMP 36.5; O2SAT 97; BMI 31.4
[2025-01-20 15:33] VITALS: BP 138/70
== END 2025-01-20 15:40 | disposition home or self-care (01) ==
LOC: HO.HMCH 14:48
PROVIDERS: PCP Internal Medicine
DX: I10 Essential (primary) hypertension (principal); R73.02 Impaired glucose tolerance (oral); E66.09 Other obesity due to excess calories; Z68.30 Body mass index [BMI] 30.0-30.9, adult; N20.0 Calculus of kidney; M43.06 Spondylolysis, lumbar region; K76.89 Other specified diseases of liver

== ENCOUNTER 2025-02-04 10:13 | Outpatient (AMB) | payer BC, SELFPAY ==
--- OUTSIDE RECORDS SUMMARY | 2025-02-04 10:25 | XMS_ITS | Clinical Summary ---
Author Organization [facility] Address [address] [place] [address] Phone Care Team Providers Care Family Independence Case Manager Name Role Phone Bhakti Reyes MD Primary Care Provider [phone] Allergies No known active allergies Medications allopurinol (ZYLOPRIM) 100 MG tablet Take 100 mg by mouth daily. 5 Active atorvastatin (LIPITOR) 10 MG tablet Take 10 mg by mouth daily. 5 Active dilTIAZem (CARDIZEM CD) 120 MG 24 hr capsule Take 120 mg by mouth daily. 5 Active omega 8-buh-cgn-fish oil (FISH OIL) 1,000 (120-180) mg Cap Take 1 capsule by mouth daily. Active levothyroxine (SYNTHROID, LEVOTHROID) 137 MCG tablet Take 137 mcg by mouth every morning. 5 Active metoprolol succinate (TOPROL-XL) 50 MG 24 hr tablet Take 50 mg by mouth daily. 5 Active rivaroxaban (XARELTO) 20 mg Tab Take 20 mg by mouth daily. 5 Active potassium citrate (UROCIT-K) 10 mEq SR tablet Take 10 mEq by mouth 2 (two) times a day with meals. Active lidocaine 4 % Place 2 patches onto the skin daily. 30 patch 5 Active cyclobenzaprine (FLEXERIL) 5 MG tablet Take 1 tablet (5 mg total) by mouth 3 (three) times a day as needed (spasms). 12 tablet 5 Active acetaminophen (TYLENOL) 325 mg tablet Take 3 tablets (975 mg total) by mouth every 8 (eight) hours. Active niacin (NIASPAN) 500 MG CR tablet Take 500 mg by mouth nightly at bedtime. 01/15/20 25 Discontinu ed(Stop Taking at Discharge) Active Problems Problem Noted Date Diagnosed Date Intractable pain 01/11/2025 Assessment & Plan (01/13/2025 2:38 PM EDT): Patient presented with sudden onset of right flank pain likely in the setting of a past stone now located in the urinary bladder. Also evidence of nonobstructive calculi on the left measuring up to 5 mm. He has no symptoms on the left side. Despite pain management with Tylenol/Toradol/Norflex/oxycodone and Dilaudid, patient continued to have refractory spasm pain. Remaining afebrile hemodynamically stable. Laboratory studies otherwise unremarkable. No other signs or symptoms of infection. Added Flomax. Try flexeril, it seems MS by his exam. In reviewing notes on Care Everywhere he has extensive low back DJD and history of pain. According to his he was encouraged at one point to get surgery but he has not wanted to. [facility] he has been doing yoga classes and I just wonder if he might of injured himself inadvertently. Toradol IV prn -Continue with oxycodone 5 mg for moderate and IV Dilaudid 1 mg for breakthrough severe pain -Regular diet -Advised to follow-up with his urologist Dr. Mario outpatient Assessment & Plan (01/12/2025 9:22 AM EDT): Patient presented with sudden onset of right flank pain likely in the setting of a past stone now located in the urinary bladder. Also evidence of nonobstructive calculi on the left measuring up to 5 mm. He has no symptoms on the left side. Despite pain management with Tylenol/Toradol/Norflex/oxycodone and Dilaudid, patient continued to have refractory spasm pain. Remaining afebrile hemodynamically stable. Laboratory studies otherwise unremarkable. No other signs or symptoms of infection. Added Flomax. Try flexeril, it seems MS by his exam Toradol IV prn -Continue with oxycodone 5 mg for moderate and IV Dilaudid 1 mg for breakthrough severe pain -Regular diet -Gentle IV fluid overnight -Advised to follow-up with his urologist Dr. Mario outpatient Assessment & Plan (01/12/2025 12:56 AM EDT): Patient presented with sudden onset of right flank pain likely in the setting of a past stone now located in the urinary bladder. Also evidence of nonobstructive calculi on the left measuring up to 5 mm. Despite pain management with Tylenol/Toradol/Norflex/oxycodone and Dilaudid, patient continued to have refractory spasm pain. Remaining afebrile hemodynamically stable. Laboratory studies otherwise unremarkable. No other signs or symptoms of infection. - Patient will be observed on MedSurg overnight -Will add Flomax and oxybutynin for urinary/bladder spasms. -Will give another dose of Toradol IV -Continue with oxycodone 5 mg for moderate and IV Dilaudid 1 mg for breakthrough severe pain -Regular diet -Gentle IV fluid overnight -Advised to follow-up with his urologist Dr. Mario outpatient Paroxysmal atrial fibrillation Assessment & Plan (01/13/2025 2:38 PM EDT): Rate and rhythm control. Continuing diltiazem and metoprolol with holding parameters. Continue Xarelto. Assessment & Plan (01/12/2025 9:22 AM EDT): Rate and rhythm control. Continuing diltiazem and metoprolol with holding parameters. Continue Xarelto. Assessment & Plan (01/12/2025 12:56 AM EDT): Rate and rhythm control. Continuing diltiazem and metoprolol with holding parameters. Continue Xarelto. Encounters Date Type Department Care Team Description 01/11/2025 4:19 PM EDT - 01/14/2025 4:17 PM EDT Hospital Encounter [facility] Medsurg [address] [place] [address] Huy Casey DO Miskovsky, Glenn E, MD Wong, Sing Wai, MD Discharge Disposition: Home or Self Care 01/11/2025 Procedure Pass [facility], Ct Scan - [facility] [address] [place] [address] from Last 3 Months Family History Medical History Relation Comments Diabetes Father Diabetes Mother Nephrolithiasis Mother Relation Status Comments Father Mother Social History Tobacco Use Types Packs/Day Years Used Date Smoking Tobacco: Former Cigarettes Tobacco Cessation:Counseling Given: Not Answered Alcohol Use Standard Drinks/Week Comments Not Currently 0 (1 standard drink = 0.6 oz pur e alcohol) Education Answer Date Recorded Are you interested in more education? Not on josh e 01/11/2025 Are you concerned about learning? Not on file 01/11/2025 No 01/11/2025 No 01/11/2025 Food Answer Date Recorded Within the past 6 months we worried whether our food would run out before we got money to buy more. Never True 01/11/2025 Within the past 6 months the food we bought just didn't last and we didn't have enough money to get more. Never True Residential Stability Answer Date Recor ded What is your housing situation today? I have coretta sing 01/11/2025 How many times have you move d in the past 12 months? Zero (I did not move) 01/11/2025 Paying for Meds Answer Date Recorded Do you have trouble paying for medicines? No 01/11/2025 Paying Utility Bills Answer Date Record ed Do you have trouble paying your heating or elect ricity bill? No 01/11/2025 Transportation Answer Date Recorded Has the lack of transportati on kept you from medical appointments or from getting medications? No 01/11/2025 Digital Access Answer Date Recorded No 01/11/2025 Yes 01/11/2025 Do you have reliable internet access at home? Ye s 01/11/2025 Do you have a device (e.g., phone, tablet, computer) with a working camera? Yes 01/11/2025 Intimate Partner Violence Answer Date R ecorded Are you denied basic needs s uch as food, clothing, or medical care? No 01/12/2025 In the past 12 months have y ou been in a relationship with a person who hurts, threatens, or tries to control you? No 01/12/2025 Are you denied basic needs s uch as food, clothing, or medical care? No 01/12/2025 In the past 12 months have y ou been in a relationship with a person who hurts, threatens, or tries to control you? No 01/12/2025 Sex and Gender Information Value Date Recorded Sex Assigned at Male 07/11/2023 11:13 AM EST Legal Sex Male 11:11 AM EST Gender Identity Male 07/11/2023 11:13 AM EST Sexual Orientation Straight 07/11/2023 11 :13 AM EST Last Filed Vital Signs Vital Sign Reading Time Taken Comments Blood Pressure 131/75 01/14/2025 7:35 AM EDT Pulse 70 01/14/2025 7:35 AM EDT Temperature 36.8 C (98.2 F) 01/14/2025 7:35 AM EDT Respiratory Rate 17 01/14/2025 7:35 AM EDT Oxygen Saturation 95% 01/14/2025 7:35 AM EDT Inhaled Oxygen Concentration - - Weight 120.2 kg (265 lb) 01/12/2025 1:35 AM EDT Height 188 cm (6' 2 ) 01/12/2025 1:35 AM EDT Body Mass Index 34.02 01/12/2025 1:35 AM EDT Plan of Treatment Health Maintenance Due Date Last Done Comments LIPID PANEL 1955 DEPRESSION SCREENING 1967 SMOKING Hx and SMOKELESS TOBACCO SCREENING 1968 HEPATITIS C SCREENING 1973 COLOGUARD 2000 COLONOSCOPY 2000 COLORECTAL CANCER SCREENING 2000 FIT TEST 2000 FOBT 2000 SIGMOIDOSCOPY 2000 VIRTUAL COLONOSCOPY 2000 PNEUMOCOCCAL VACCINES (50+ years) (1 of 1 - PCV) 2005 RSV VACCINE (1 - Risk 60-74 years 1-dose series) 2015 COVID-19 VACCINE ( - 2023-2 5 season) 2024 TSH LEVEL 09/11/2024 09/12/2023 CREATININE LEVEL 01/12/2026 01/12/2025, 01/11/2025 Adult Td,Tdap Booster 05/22/2027 05/22/2017 SCREENING FOR DIABETES 01/13/2028 01/12/2025 ZOSTER VACCINES Completed 06/23/2023, 08/09/2021 ABDOMINAL AORTIC ANEURYSM (AAA) SCREENING Completed 01/11/2025 HEPATITIS A VACCINES Aged Out No long er eligible based on patient's age to complete this topic HIB VACCINES Aged Out No longer eligi ble based on patient's age to complete this topic MENINGOCOCCAL VACCINES (ACWY) Aged Out No longer eligible based on patient's age to complete this topic MENINGOCOCCAL VACCINES (B) Aged Out N o longer eligible based on patient's age to complete this topic Medical Devices Not on file Procedures Procedure Name Priority Date/Time Associated Diagnosis Comments CBC AND DIFFERENTIAL Routine 01/12/2025 6:12 AM EDT COMPREHENSIVE METABOLIC PANEL Routine 01/12/2025 6:[address] ABDOMEN/PELVIS WITHOUT CONTRAST Routine 01/11/2025 7:00 PM EDT URINALYSIS W/REFLEX URINE CULTURE STAT 01/11/2025 5:23 PM EDT LIPASE STAT 01/11/2025 1:49 PM EDT LFTS (HEPATIC PANEL) STAT 01/11/2025 1:49 PM EDT BASIC METABOLIC PANEL STAT 01/11/2025 1:49 PM EDT CBC AND DIFFERENTIAL STAT 01/11/2025 1:49 PM EDT from Last 3 Months Results * (ABNORMAL) Comprehensive metabolic panel (01/12/2025 6:12 AM EDT) SODIUM 140 133 - 146 mmol/L [facility] POTASSIUM 3.8 3.3 - 5.1 mmol/L [facility] CHLORIDE 106 96 - 108 mmol/L [facility] CO2 26 21 - 35 mmol/L [facility] BUN 19 6 - 19 mg/dL [facility] CREATININE 1.10 0.5 - 1.5 mg/dL [facility] GLUCOSE 114(H) 70 - 99 mg/dL [facility] ALBUMIN 3.4(L) 3.9 - 4.8 g/dL [facility] TOTAL PROTEIN 5.8(L) 6.5 - 8.0 g/dL [facility] CALCIUM 8.4 8.4 - 10.3 mg/dL [facility] ALKALINE PHOSPHATASE 75 39 - 117 U/L [facility] TOTAL BILIRUBIN 0.8 0.0 - 1.2 mg/dL [facility] AST 15 0 - 37 U/L [facility] ALT 15 0 - 40 U/L [facility] GLOBULIN 2.4 1 - 4.8 g/dL [facility] EGFR 73 >59 mL/min/1.7 3m2 [facility] Comment:Estimated glomerular filtration rate calculated using the CKD-EPI refit equation. ANION GAP 12 10 - 20 mmol/L [facility] Blood 01/12/2025 6:12 AM EDT 01/12/2025 6:34 AM EDT us Melquiades Solares MD LAB BLOOD ORDERABLES Final Resu lt [address] [address] * (ABNORMAL) CBC and differential (01/12/2025 6:12 AM EDT) Only the most recent of2 resultswithin the time period is included. WBC 5.02 4.00 - 11.00 K/uL [facility] RBC 4.15(L) 4.50 - 5.90 M/uL [facility] HGB 12.7(L) 13.5 - 17.5 g/dL [facility] HCT 38.9(L) 41.0 - 53.0 % [facility] PLT 163 150 - 450 K/uL [facility] MCV 93.7 80.0 - 100.0 fL [facility] MCH 30.6 27.0 - 31.0 pg [facility] MCHC 32.6 32.0 - 36.0 g/dL [facility] RDW 14.6(H) 11.5 - 14.5 % [facility] MPV 9.5 8.4 - 12.0 fL [facility] NRBC 0.00 0.00 /100 WBCs [facility] ABSOLUTE NRBC 0.00 0.00 K/uL [facility] DIFF METHOD Auto [facility] NEUTS 62.9 48.0 - 76.0 % [facility] LYMPHS 20.7 18.0 - 41.0 % [facility] MONOS 11.4(H) 4.0 - 11.0 % [facility] EOS 4.2 0.0 - 5.0 % [facility] BASOS 0.6 0.0 - 1.5 % [facility] Granulocytes, immature (%) 0.2 0.0 - 0.9 % [facility] ABSOLUTE NEUTS 3.16 1.92 - 7.60 K/uL [facility] ABSOLUTE LYMPHS 1.04 0.72 - 4.10 K/uL [facility] ABSOLUTE MONOS 0.57 0.16 - 1.10 K/uL [facility] ABSOLUTE EOS 0.21 0.00 - 0.50 K/uL [facility] ABSOLUTE BASOS 0.03 0.00 - 0.15 K/uL [facility] Granulocytes, immature 0.01 0.00 - 0.09 K/uL [facility] Blood 01/12/2025 6:12 AM EDT 01/12/2025 6:34 AM EDT us Melquiades Solares MD LAB BLOOD ORDERABLES Final Resu lt Performing Organization Address City/State/[facility] Co de Phone Number [facility] [address] [place] [address] * CT ABDOMEN/PELVIS WITHOUT CONTRAST (01/11/2025 7:00 PM EDT) Anatomical Region Laterality Modality Abdomen, Pelvis Computed Tomogra phy 01/11/2025 9:13 PM EDT Impressions 01/11/2025 9:24 PM EDT A 7 mm calculus in the urinary bladder. The findings may represent a recently passed ureteric calculus. Nonobstructing left renal calculi. Narrative 01/11/2025 9:[address] ABDOMEN/PELVIS WITHOUT CONTRAST Referring clinician's provided indication for this examination in [facility]: * Flank pain, kidney stone suspected TECHNIQUE: Multidetector-row CT of the abdomen and pelvis was performed without administration of intravenous contrast using tailored dose modulation techniques. Images were reconstructed in the axial, coronal, and sagittal planes. COMPARISON: None available. FINDINGS: Lower Chest: No consolidation or pleural effusions. Calcified bilateral pleural plaques. Liver: Multifocal hepatic hypodense lesions, largest in the hepatic dome measuring approximately 11.9 x 8.4 with wall calcifications, incompletely characterized, likely cysts. Biliary: Normal gallbladder. No biliary ductal dilatation. Spleen: No splenomegaly. Pancreas: No ductal dilatation. Adrenal Glands: No nodules. Kidneys/Ureters: No hydronephrosis on either side. A few nonobstructing calculi in the left kidney, measuring up to 5 mm. Bowel: Appendix not visualized, no secondary signs of appendicitis. Mild sigmoid diverticulosis. No abnormal dilatation or wall thickening. Peritoneum/Retroperitoneum: No masses, pneumoperitoneum, or fluid. Lymph Nodes: No lymphadenopathy. Pelvic Organs/Bladder: No mass. Partially distended urinary bladder. A 7 mm calculus is seen in the urinary bladder Vessels: No abdominal aortic aneurysm. Bones/Soft Tissues: Dextroscoliotic curvature of the lumbar spine with multilevel degenerative changes Procedure Note Adriel Smyth, MEENAKSHI - 01/11/2025 CT ABDOMEN/PELVIS WITHOUT CONTRAST Referring clinician's provided indication for this examination in [facility]: *Flank pain, kidney stone suspected TECHNIQUE: Multidetector-row CT of the abdomen and pelvis was performedwithout administration of intravenous contrast using tailored dosemodulation techniques. Images were reconstructed in the axial, coronal,and sagittal planes. COMPARISON: None available. FINDINGS: Lower Chest: No consolidation or pleural effusions. Calcified bilateralpleural plaques. Liver: Multifocal hepatic hypodense lesions, largest in the hepatic domemeasuring approximately 11.9 x 8.4 with wall calcifications, incompletelycharacterized, likely cysts. Biliary: Normal gallbladder. No biliary ductal dilatation. Spleen: No splenomegaly. Pancreas: No ductal dilatation. Adrenal Glands: No nodules. Kidneys/Ureters: No hydronephrosis on either side. A few nonobstructingcalculi in the left kidney, measuring up to 5 mm. Bowel: Appendix not visualized, no secondary signs of appendicitis. Mildsigmoid diverticulosis. No abnormal dilatation or wall thickening. Peritoneum/Retroperitoneum: No masses, pneumoperitoneum, or fluid. Lymph Nodes: No lymphadenopathy. Pelvic Organs/Bladder: No mass. Partially distended urinary bladder. A 7mm calculus is seen in the urinary bladder Vessels: No abdominal aortic aneurysm. Bones/Soft Tissues: Dextroscoliotic curvature of the lumbar spine withmultilevel degenerative changes IMPRESSION: A 7 mm calculus in the urinary bladder. The findings may represent arecently passed ureteric calculus. Nonobstructing left renal calculi. Chrissy Mendez PA-C IMG CT ABD/PELVIS Final Resu lt * Urinalysis w/reflex Urine Culture (01/11/2025 5:23 PM EDT) COLOR Yellow Yellow [facility] CLARITY Clear [facility] GLUCOSE Negative Negative [facility] BILI Negative Negative [facility] KETONES Negative Negative [facility] SPECIFIC GRAVITY >1.030 1.005 - 1.030 [facility] BLOOD Negative Negative [facility] PH 6.0 5.0 - 8.0 [facility] Protein-UA Negative Negative [facility] NITRITE Negative Negative [facility] Leukocyte esterase, ur Negative Negative [facility] Urine (Urine) 01/11/2025 5:2 3 PM EDT 01/11/2025 6:34 PM EDT Jl Wade MD URINE ORDERABLES Final Res ult [facility] [address] [place] [address] * (ABNORMAL) LFTs (hepatic panel) (01/11/2025 1:49 PM EDT) ALKALINE PHOSPHATASE 85 39 - 117 U/L [facility] TOTAL BILIRUBIN 0.9 0.0 - 1.2 mg/dL [facility] DIRECT BILIRUBIN 0.3(H) 0.0 - 0.2 mg/dL [facility] Bilirubin (Indirect) 0.6 0 - 1.5 mg/dL [facility] AST 12 0 - 37 U/L [facility] ALT 18 0 - 40 U/L [facility] TOTAL PROTEIN 6.9 6.5 - 8.0 g/dL [facility] ALBUMIN 4.1 3.9 - 4.8 g/dL [facility] GLOBULIN 2.8 1 - 4.8 g/dL [facility] A/G Ratio 1.46 1.00 - 4.80 RATIO [facility] Blood 01/11/2025 1:49 PM EDT 01/11/2025 2:06 PM EDT Jl Wade MD LAB BLOOD ORDERABLES Final Result Performing Organization Address [facility]/ZIP Co de Phone Number [address] [address] * Lipase (01/11/2025 1:49 PM EDT) LIPASE 41 16 - 63 U/L [facility] Blood 01/11/2025 1:49 PM EDT 01/11/2025 2:06 PM EDT Jl Wade MD LAB BLOOD ORDERABLES Final Result Performing Organization Address [facility]/ZIP Co de Phone Number [address] [address] * Basic metabolic panel (01/11/2025 1:49 PM EDT) SODIUM 142 133 - 146 mmol/L [facility] CHLORIDE 107 96 - 108 mmol/L [facility] POTASSIUM 4.3 3.3 - 5.1 mmol/L [facility] CO2 25 21 - 35 mmol/L [facility] BUN 17 6 - 19 mg/dL [facility] CREATININE 0.90 0.5 - 1.5 mg/dL [facility] GLUCOSE 71 70 - 99 mg/dL [facility] CALCIUM 9.3 8.4 - 10.3 mg/dL [facility] EGFR 92 >59 mL/min/1.7 3m2 [facility] Comment:Estimated glomerular filtration rate calculated using the CKD-EPI refit equation. ANION GAP 14 10 - 20 mmol/L [facility] Blood 01/11/2025 1:49 PM EDT 01/11/2025 2:06 PM EDT Jl Wade MD LAB BLOOD ORDERABLES Final Result [facility] [address] [place] [address] from Last 3 Months Insurance [employer] [facility] MEDICARE A [place] [address] [place] [address] MEDICARE A MEDICARE A MEDICARE A [facility] FEDERAL MEDICARE A Advance Directives For more information, please contact: [phone] (9AM - 5PM [facility], Friday-Friday) * Full Code (Latest Code Status on File) Date Activated Date Inactivated Comments 01/12/2025 12:29 AM Question Answer Comments Code Status Confirmed With: Patient Code Status Communicated To: Inpatient Attending Care Teams Family Independence Case Manager Relationship Specialty Start Date End Date Bhakti Reyes MD [address] [place] [id number] PCP - General Internal Medicine 07/11/23 Additional Source Comments The information contained in this document represents components of the legal health record. It is not the complete legal health record.[facility]
--- OUTSIDE RECORDS SUMMARY | 2025-02-04 10:25 | XMS_ITS ---
Author Name Manjinder Lopez Address Unknown Organization [facility] Providers Care Drugless Doctor Name Role Phone Unavailable Primary Care Physician Unavailab le History Of Present Illness No Data Medications Medication Generic Name RxNorm Strength Strength Unit Route Dose Dose Form Frequency Date Started Date Ended Status Indication Sig betamethaso ne dipropionat e betameth asone dipropio bennett 624031 0.05 % Topica l lotio n 07/19/19 25 suspend ed Appl y Am and PM scal p itch as need ed betamethaso ne valerate betameth asone valerate 630833 0.1 % Topica l apply thin layer to skin lotio n as needed 07/20/19 25 active Appl y AM and PM scal p for itch ciclopirox ciclopir ox 341834 0.77 % Topica l cream Bid 09/07/19 20 suspend ed Appl y AM and PM to bonifacio a butt ocks for 4 week s ciclopirox ciclopir ox 991633 0.77 % Topica l cream BID 03/23/20 21 suspend ed Appl y AM and PM to tops , side s, gulshan om of feet , betw een toes for 4 week s. clobetasol clobetas ol 382439 0.05 % Topica l cream BID 05/19/20 19 suspend ed ECZEMA APPL Y AM AND PM ECZE MA BACK AND BUTT OCKS FOR UP TO 2 WEEK S WHEN NEED ED fluocinonid e fluocino nide 490800 0.05 % Topica l apply thin layer to skin solut ion as needed 05/18/20 24 active Appl y 5-10 drop s AM and PM scal p and mass age in halobetasol propionate halobeta jaiden propiona te 055394 0.05 % Topica l cream BID 08/31/19 23 suspend ed Appl y AM and PM ecze ma left hand and foot for 2 week s when need ed. Neve r use face groi n or unde rarm s ketoconazol e ketocona zole 752192 2 % Topica l cream 04/04/20 22 suspend ed Tinea Appl y AM and PM to top, side , gulshan om of left foot and betw een toes for 4 week s ketoconazol e ketocona zole 434792 2 % Topica l apply small amoun t to hair shamp oo When Shampooing 12/29/19 24 active Appl y to damp hair , lath er leav e in 5 ana amrik and rins e out. Use when sham pooi ng mupirocin mupiroci n 653034 2 % Topica l ointm ent 03/24/20 24 suspend ed Appl y AM and PM righ t rivka k for 10 days chanel t/sc ab Sernivo betameth asone dipropio bennett 2092819 0.05 % Topica l spray with pump 05/28/20 21 suspend ed Appl y AM and PM scal p and mass age in atorvastati n atorvast atin 10 mg Oral 1 table t daily active Fish Oil omega-3 fatty acids-vi tamin E Oral active griseofulvi n microsize griseofu lvin microsiz e 202018 500 mg Oral table t QD 10/07/19 21 suspend ed Tinea Take one PO QD with food and milk hydroxyzine HCl hydroxyz ine HCl 880956 10 mg Oral table t QHS 07/19/19 [...] DermOtic Oil fluocino lone acetonid e oil 8713883 0.01 % Otic (ear) drops BID 08/22/19 21 suspend ed Eczema Appl y 2-4 drop s righ t ear for 2 week s clobetasol clobetas ol 979546 0.05 % Scalp solut ion 03/23/20 21 [...] Diagnosis Date of Resolution Atopic dermatitis (disorder) 02429193(S NOMED) Diagnosis active 01/31/2025 Atopic dermatitis (disorder) 03840743(S NOMED) Diagnosis active 01/26/2025 Atopic dermatitis (disorder) 30054333(S NOMED) Diagnosis active 01/21/2025 Atopic dermatitis (disorder) 43103801(S NOMED) Diagnosis active 01/19/2025 Atopic dermatitis (disorder) 77165569(S NOMED) Diagnosis active 01/07/2025 Atopic dermatitis (disorder) 30982971(S NOMED) Diagnosis active 01/05/2025 Atopic dermatitis (disorder) 92393356(S NOMED) Diagnosis active 01/03/2025 Atopic dermatitis (disorder) 85365512(S NOMED) Diagnosis active 12/31/2024 Atopic dermatitis (disorder) 86406648(S NOMED) Diagnosis active 12/29/2024 Atopic dermatitis (disorder) 31434150(S NOMED) Diagnosis active 12/27/2024 Atopic dermatitis (disorder) 44201423(S NOMED) Diagnosis active 12/22/2024 Atopic dermatitis (disorder) 07172483(S NOMED) Diagnosis active 12/17/2024 Atopic dermatitis (disorder) 96437796(S NOMED) Diagnosis active 12/10/2024 Atopic dermatitis (disorder) 78484693(S NOMED) Diagnosis active 12/08/2024 Atopic dermatitis (disorder) 08552622(S NOMED) Diagnosis active 12/03/2024 Atopic dermatitis (disorder) 62087690(S NOMED) Diagnosis active 12/01/2024 Neoplasm of uncertain behavior of skin (disorder) 35873773(S NOMED) Diagnosis active 11/29/2024 Atopic dermatitis (disorder) 09662650(S NOMED) Diagnosis active 11/29/2024 Atopic dermatitis (disorder) 08636172(S NOMED) Diagnosis active 11/29/2024 Atopic dermatitis (disorder) 49686269(S NOMED) Diagnosis active 11/26/2024 Atopic dermatitis (disorder) 54034798(S NOMED) Diagnosis active 11/24/2024 Atopic dermatitis (disorder) 53978931(S NOMED) Diagnosis active 11/19/2024 Atopic dermatitis (disorder) 14635388(S NOMED) Diagnosis active 11/12/2024 Atopic dermatitis (disorder) 10788279(S NOMED) Diagnosis active 11/08/2024 Atopic dermatitis (disorder) 78180723(S NOMED) Diagnosis active 11/05/2024 Atopic dermatitis (disorder) 25137813(S NOMED) Diagnosis active 11/03/2024 Atopic dermatitis (disorder) 18294647(S NOMED) Diagnosis active 10/29/2024 Atopic dermatitis (disorder) 32689300(S NOMED) Diagnosis active 10/27/2024 Atopic dermatitis (disorder) 99631224(S NOMED) Diagnosis active 10/25/2024 Atopic dermatitis (disorder) 09531920(S NOMED) Diagnosis active 10/20/2024 Atopic dermatitis (disorder) 58616047(S NOMED) Diagnosis active 10/13/2024 Atopic dermatitis (disorder) 57639379(S NOMED) Diagnosis active 10/11/2024 Atopic dermatitis (disorder) 67088906(S NOMED) Diagnosis active 10/08/2024 Atopic dermatitis (disorder) 98380597(S NOMED) Diagnosis active 10/01/2024 Atopic dermatitis (disorder) 43238642(S NOMED) Diagnosis active 09/29/2024 Atopic dermatitis (disorder) 32996331(S NOMED) Diagnosis active 09/27/2024 Atopic dermatitis (disorder) 28878342(S NOMED) Diagnosis active 09/24/2024 Atopic dermatitis (disorder) 85857146(S NOMED) Diagnosis active 09/22/2024 Atopic dermatitis (disorder) 61816483(S NOMED) Diagnosis active 09/17/2024 Atopic dermatitis (disorder) 77707329(S NOMED) Diagnosis active 09/15/2024 Atopic dermatitis (disorder) 33566903(S NOMED) Diagnosis active 09/10/2024 Atopic dermatitis (disorder) 44979757(S NOMED) Diagnosis active 09/03/2024 Atopic dermatitis (disorder) 71577553(S NOMED) Diagnosis active 09/01/2024 Atopic dermatitis (disorder) 18595786(S NOMED) Diagnosis active 08/27/2024 Hemangioma of skin and subcutaneous tissue (disorder) 663249208( SNOMED) Diagnosis active 08/25/2024 Seborrheic keratosis (disorder) 172105512( SNOMED) Diagnosis active 08/25/2024 Disorder of pigmentation (disorder) 858138448( SNOMED) Diagnosis active 08/25/2024 Melanocytic nevus of trunk (disorder) 031750017( SNOMED) Diagnosis active 08/25/2024 Atopic dermatitis (disorder) 15332994(S NOMED) Diagnosis active 08/25/2024 Patient encounter status (finding) 315568316( SNOMED) Diagnosis active 08/25/2024 Atopic dermatitis (disorder) 44746599(S NOMED) Diagnosis active 08/25/2024 Atopic dermatitis (disorder) 93716392(S NOMED) Diagnosis active 08/23/2024 Atopic dermatitis (disorder) 27235654(S NOMED) Diagnosis active 08/18/2024 Atopic dermatitis (disorder) 93033756(S NOMED) Diagnosis active 08/11/2024 Atopic dermatitis (disorder) 26095466(S NOMED) Diagnosis active 08/06/2024 Atopic dermatitis (disorder) 22060151(S NOMED) Diagnosis active 08/02/2024 Atopic dermatitis (disorder) 37690669(S NOMED) Diagnosis active 07/30/2024 Atopic dermatitis (disorder) 82885196(S NOMED) Diagnosis active 07/21/2024 Atopic dermatitis (disorder) 43567775(S NOMED) Diagnosis active 07/19/2024 Disorder of pigmentation (disorder) 496382474( SNOMED) Diagnosis active 07/19/2024 Atopic dermatitis (disorder) 04470404(S NOMED) Diagnosis active 07/16/2024 Atopic dermatitis (disorder) 07155922(S NOMED) Diagnosis active 07/14/2024 Atopic dermatitis (disorder) 45166185(S NOMED) Diagnosis active 07/09/2024 Atopic dermatitis (disorder) 54774700(S NOMED) Diagnosis active 07/05/2024 Atopic dermatitis (disorder) 20945309(S NOMED) Diagnosis active 07/02/2024 Atopic dermatitis (disorder) 27610829(S NOMED) Diagnosis active 06/28/2024 Atopic dermatitis (disorder) 12653828(S NOMED) Diagnosis active 06/25/2024 Atopic dermatitis (disorder) 14510782(S NOMED) Diagnosis active 06/18/2024 Atopic dermatitis (disorder) 60131415(S NOMED) Diagnosis active 06/14/2024 Atopic dermatitis (disorder) 45443937(S NOMED) Diagnosis active 06/11/2024 Atopic dermatitis (disorder) 53141412(S NOMED) Diagnosis active 06/02/2024 Atopic dermatitis (disorder) 37402121(S NOMED) Diagnosis active 05/28/2024 Atopic dermatitis (disorder) 78039379(S NOMED) Diagnosis active 05/26/2024 Atopic dermatitis (disorder) 40349784(S NOMED) Diagnosis active 05/24/2024 Atopic dermatitis (disorder) 84983080(S NOMED) Diagnosis active 05/18/2024 Atopic dermatitis (disorder) 89988021(S NOMED) Diagnosis active 04/23/2024 Localized edema (finding) 913810199( SNOMED) Diagnosis active 03/24/2024 Atopic dermatitis (disorder) 24797130(S NOMED) Diagnosis active 01/30/2024 Hemangioma of skin and subcutaneous tissue (disorder) 950804552( SNOMED) Diagnosis active 12/29/2023 Seborrheic keratosis (disorder) 288511286( SNOMED) Diagnosis active 12/29/2023 Disorder of pigmentation (disorder) 272142186( SNOMED) Diagnosis active 12/29/2023 Melanocytic nevus of trunk (disorder) 866998236( SNOMED) Diagnosis active 12/29/2023 Atopic dermatitis (disorder) 85977919(S NOMED) Diagnosis active 12/29/2023 Seborrheic dermatitis (disorder) 33046848(S NOMED) Diagnosis active 12/29/2023 Patient encounter status (finding) 322373437( SNOMED) Diagnosis active 12/29/2023 History of malignant neoplasm of skin (situation) 316001577( SNOMED) Diagnosis active 12/29/2023 Atopic dermatitis (disorder) 70757514(S NOMED) Diagnosis active 12/19/2023 Atopic dermatitis (disorder) 59872539(S NOMED) Diagnosis active 12/12/2023 Atopic dermatitis (disorder) 58481712(S NOMED) Diagnosis active 12/05/2023 Atopic dermatitis (disorder) 21019542(S NOMED) Diagnosis active 11/21/2023 Atopic dermatitis (disorder) 71324194(S NOMED) Diagnosis active 11/14/2023 Atopic dermatitis (disorder) 27497817(S NOMED) Diagnosis active 11/07/2023 Atopic dermatitis (disorder) 34599860(S NOMED) Diagnosis active 10/31/2023 Atopic dermatitis (disorder) 79898637(S NOMED) Diagnosis active 10/24/2023 Atopic dermatitis (disorder) 82673575(S NOMED) Diagnosis active 10/17/2023 Atopic dermatitis (disorder) 65842314(S NOMED) Diagnosis active 10/10/2023 Atopic dermatitis (disorder) 48714747(S NOMED) Diagnosis active 10/03/2023 Atopic dermatitis (disorder) 62646386(S NOMED) Diagnosis active 09/26/2023 Atopic dermatitis (disorder) 30070808(S NOMED) Diagnosis active 09/05/2023 Atopic dermatitis (disorder) 53019828(S NOMED) Diagnosis active 08/29/2023 Atopic dermatitis (disorder) 37490910(S NOMED) Diagnosis active 08/22/2023 Atopic dermatitis (disorder) 48974301(S NOMED) Diagnosis active 08/15/2023 Atopic dermatitis (disorder) 95245555(S NOMED) Diagnosis active 08/08/2023 Atopic dermatitis (disorder) 21881935(S NOMED) Diagnosis active 08/01/2023 Atopic dermatitis (disorder) 42378213(S NOMED) Diagnosis active 07/25/2023 Atopic dermatitis (disorder) 94003734(S NOMED) Diagnosis active 07/18/2023 Atopic dermatitis (disorder) 08634250(S NOMED) Diagnosis active 07/11/2023 Hemangioma of skin and subcutaneous tissue (disorder) 559469728( SNOMED) Diagnosis active 07/07/2023 Seborrheic keratosis (disorder) 553308578( SNOMED) Diagnosis active 07/07/2023 Disorder of pigmentation (disorder) 794500267( SNOMED) Diagnosis active 07/07/2023 Melanocytic nevus of trunk (disorder) 018095295( SNOMED) Diagnosis active 07/07/2023 Atopic dermatitis (disorder) 34671877(S NOMED) Diagnosis active 07/07/2023 Patient encounter status (finding) 273528733( SNOMED) Diagnosis active 07/07/2023 History of malignant neoplasm of skin (situation) 795453768( SNOMED) Diagnosis active 07/07/2023 Atopic dermatitis (disorder) 18077014(S NOMED) Diagnosis active 07/04/2023 Atopic dermatitis (disorder) 76582815(S NOMED) Diagnosis active 06/30/2023 Atopic dermatitis (disorder) 36623823(S NOMED) Diagnosis active 06/27/2023 Atopic dermatitis (disorder) 65400046(S NOMED) Diagnosis active 06/20/2023 Atopic dermatitis (disorder) 92354804(S NOMED) Diagnosis active 06/17/2023 Atopic dermatitis (disorder) 62671310(S NOMED) Diagnosis active 06/13/2023 Atopic dermatitis (disorder) 11187606(S NOMED) Diagnosis active 06/09/2023 Atopic dermatitis (disorder) 63694638(S NOMED) Diagnosis active 06/06/2023 Atopic dermatitis (disorder) 11183494(S NOMED) Diagnosis active 06/02/2023 Atopic dermatitis (disorder) 89035112(S NOMED) Diagnosis active 05/30/2023 Atopic dermatitis (disorder) 30295038(S NOMED) Diagnosis active 05/26/2023 Atopic dermatitis (disorder) 58430526(S NOMED) Diagnosis active 05/23/2023 Atopic dermatitis (disorder) 35215913(S NOMED) Diagnosis active 05/14/2023 Atopic dermatitis (disorder) 60201124(S NOMED) Diagnosis active 05/12/2023 Atopic dermatitis (disorder) 19544780(S NOMED) Diagnosis active 05/09/2023 Atopic dermatitis (disorder) 60358534(S NOMED) Diagnosis active 05/05/2023 Atopic dermatitis (disorder) 63282940(S NOMED) Diagnosis active 05/02/2023 Atopic dermatitis (disorder) 93080190(S NOMED) Diagnosis active 04/28/2023 Atopic dermatitis (disorder) 32119132(S NOMED) Diagnosis active 04/25/2023 Atopic dermatitis (disorder) 21442980(S NOMED) Diagnosis active 04/18/2023 Atopic dermatitis (disorder) 44019454(S NOMED) Diagnosis active 04/14/2023 Atopic dermatitis (disorder) 60807137(S NOMED) Diagnosis active 04/11/2023 Atopic dermatitis (disorder) 42056074(S NOMED) Diagnosis active 04/07/2023 Atopic dermatitis (disorder) 17494558(S NOMED) Diagnosis active 04/04/2023 Atopic dermatitis (disorder) 27678207(S NOMED) Diagnosis active 03/31/2023 Atopic dermatitis (disorder) 57502945(S NOMED) Diagnosis active 03/28/2023 Surgical follow-up (finding) 373170158( SNOMED) Diagnosis active 03/25/2023 Basal cell carcinoma of face (disorder) 138477826( SNOMED) Diagnosis active 03/18/2023 Basal cell carcinoma of face (disorder) 125207840( SNOMED) Diagnosis active 03/05/2023 Neoplasm of uncertain behavior of skin (disorder) 50408632(S NOMED) Diagnosis active 03/05/2023 Atopic dermatitis (disorder) 23279736(S NOMED) Diagnosis active 03/03/2023 Atopic dermatitis (disorder) 69121662(S NOMED) Diagnosis active 02/28/2023 Atopic dermatitis (disorder) 57245596(S NOMED) Diagnosis active 02/20/2023 Atopic dermatitis (disorder) 36831989(S NOMED) Diagnosis active 02/17/2023 Atopic dermatitis (disorder) 15623754(S NOMED) Diagnosis active 02/14/2023 Atopic dermatitis (disorder) 15392376(S NOMED) Diagnosis active 02/10/2023 Atopic dermatitis (disorder) 55466583(S NOMED) Diagnosis active 02/07/2023 Atopic dermatitis (disorder) 09450573(S NOMED) Diagnosis active 02/03/2023 Atopic dermatitis (disorder) 98977516(S NOMED) Diagnosis active 01/31/2023 Atopic dermatitis (disorder) 30955263(S NOMED) Diagnosis active 01/24/2023 Neoplasm of uncertain behavior of skin (disorder) 17265643(S NOMED) Diagnosis active 01/20/2023 Atopic dermatitis (disorder) 25658975(S NOMED) Diagnosis active 01/20/2023 Atopic dermatitis (disorder) 48008959(S NOMED) Diagnosis active 01/17/2023 Atopic dermatitis (disorder) 66130810(S NOMED) Diagnosis active 01/10/2023 Atopic dermatitis (disorder) 68553279(S NOMED) Diagnosis active 01/06/2023 Atopic dermatitis (disorder) 22539366(S NOMED) Diagnosis active 01/03/2023 Atopic dermatitis (disorder) 23372807(S NOMED) Diagnosis active 12/27/2022 Atopic dermatitis (disorder) 34377427(S NOMED) Diagnosis active 12/20/2022 Atopic dermatitis (disorder) 55070590(S NOMED) Diagnosis active 12/16/2022 Atopic dermatitis (disorder) 26899886(S NOMED) Diagnosis active 12/13/2022 Atopic dermatitis (disorder) 20310451(S NOMED) Diagnosis active 12/06/2022 Atopic dermatitis (disorder) 22999636(S NOMED) Diagnosis active 12/02/2022 Atopic dermatitis (disorder) 42184639(S NOMED) Diagnosis active 11/29/2022 Atopic dermatitis (disorder) 02900082(S NOMED) Diagnosis active 11/25/2022 Atopic dermatitis (disorder) 12827485(S NOMED) Diagnosis active 11/19/2022 Atopic dermatitis (disorder) 65114034(S NOMED) Diagnosis active 11/15/2022 Atopic dermatitis (disorder) 93775332(S NOMED) Diagnosis active 11/11/2022 Atopic dermatitis (disorder) 66158442(S NOMED) Diagnosis active 11/08/2022 Atopic dermatitis (disorder) 88917896(S NOMED) Diagnosis active 11/04/2022 Atopic dermatitis (disorder) 77740824(S NOMED) Diagnosis active 11/01/2022 Atopic dermatitis (disorder) 68159835(S NOMED) Diagnosis active 10/28/2022 Atopic dermatitis (disorder) 73062600(S NOMED) Diagnosis active 10/25/2022 Neoplasm of uncertain behavior of skin (disorder) 71191244(S NOMED) Diagnosis active 10/21/2022 Atopic dermatitis (disorder) 33316567(S NOMED) Diagnosis active 10/18/2022 Atopic dermatitis (disorder) 64279441(S NOMED) Diagnosis active 10/18/2022 Atopic dermatitis (disorder) 16962628(S NOMED) Diagnosis active 09/27/2022 Atopic dermatitis (disorder) 46880838(S NOMED) Diagnosis active 09/23/2022 Atopic dermatitis (disorder) 18938623(S NOMED) Diagnosis active 09/20/2022 Atopic dermatitis (disorder) 18916482(S NOMED) Diagnosis active 09/16/2022 Atopic dermatitis (disorder) 98380999(S NOMED) Diagnosis active 09/13/2022 Atopic dermatitis (disorder) 61963512(S NOMED) Diagnosis active 09/09/2022 Atopic dermatitis (disorder) 06377577(S NOMED) Diagnosis active 09/06/2022 Atopic dermatitis (disorder) 73903267(S NOMED) Diagnosis active 09/02/2022 Atopic dermatitis (disorder) 99461638(S NOMED) Diagnosis active 08/30/2022 Atopic dermatitis (disorder) 42308991(S NOMED) Diagnosis active 08/30/2022 Atopic dermatitis (disorder) 80205431(S NOMED) Diagnosis active 08/19/2022 Atopic dermatitis (disorder) 72458918(S NOMED) Diagnosis active 08/16/2022 Atopic dermatitis (disorder) 36346069(S NOMED) Diagnosis active 08/13/2022 Atopic dermatitis (disorder) 16959187(S NOMED) Diagnosis active 08/09/2022 Atopic dermatitis (disorder) 78812144(S NOMED) Diagnosis active 08/05/2022 Tinea pedis (disorder) 7120696(SN OMED) Diagnosis active 08/05/2022 Atopic dermatitis (disorder) 43389977(S NOMED) Diagnosis active 08/02/2022 Atopic dermatitis (disorder) 97277588(S NOMED) Diagnosis active 07/26/2022 Atopic dermatitis (disorder) 18838541(S NOMED) Diagnosis active 07/19/2022 Atopic dermatitis (disorder) 42734594(S NOMED) Diagnosis active 07/12/2022 Atopic dermatitis (disorder) 43671347(S NOMED) Diagnosis active 07/05/2022 Atopic dermatitis (disorder) 74855042(S NOMED) Diagnosis active 06/28/2022 Atopic dermatitis (disorder) 65356831(S NOMED) Diagnosis active 06/21/2022 Atopic dermatitis (disorder) 74973046(S NOMED) Diagnosis active 06/14/2022 Atopic dermatitis (disorder) 49778865(S NOMED) Diagnosis active 06/07/2022 Atopic dermatitis (disorder) 67869448(S NOMED) Diagnosis active 05/31/2022 Atopic dermatitis (disorder) 47642185(S NOMED) Diagnosis active 05/03/2022 Atopic dermatitis (disorder) 21969061(S NOMED) Diagnosis active 04/26/2022 Atopic dermatitis (disorder) 69131813(S NOMED) Diagnosis active 04/19/2022 Atopic dermatitis (disorder) 54514952(S NOMED) Diagnosis active 04/12/2022 Atopic dermatitis (disorder) 09403601(S NOMED) Diagnosis active 04/05/2022 Atopic dermatitis (disorder) 50771072(S NOMED) Diagnosis active 04/03/2022 Tinea pedis (disorder) 5226741(SN OMED) Diagnosis active 04/03/2022 Atopic dermatitis (disorder) 80102558(S NOMED) Diagnosis active 03/29/2022 Atopic dermatitis (disorder) 90399910(S NOMED) Diagnosis active 03/22/2022 Atopic dermatitis (disorder) 53690005(S NOMED) Diagnosis active 03/15/2022 Atopic dermatitis (disorder) 43705678(S NOMED) Diagnosis active 2022 Atopic dermatitis (disorder) 73006965(S NOMED) Diagnosis active 03/01/2022 Atopic dermatitis (disorder) 18731634(S NOMED) Diagnosis active 02/22/2022 Atopic dermatitis (disorder) 22215465(S NOMED) Diagnosis active 02/15/2022 Atopic dermatitis (disorder) 44905859(S NOMED) Diagnosis active 02/08/2022 Atopic dermatitis (disorder) 25070678(S NOMED) Diagnosis active 02/01/2022 Atopic dermatitis (disorder) 44747555(S NOMED) Diagnosis active 01/18/2022 Atopic dermatitis (disorder) 18314552(S NOMED) Diagnosis active 01/11/2022 Atopic dermatitis (disorder) 60133244(S NOMED) Diagnosis active 01/04/2022 Atopic dermatitis (disorder) 87497200(S NOMED) Diagnosis active 12/31/2021 Atopic dermatitis (disorder) 30851306(S NOMED) Diagnosis active 12/28/2021 Atopic dermatitis (disorder) 42385361(S NOMED) Diagnosis active 12/21/2021 Atopic dermatitis (disorder) 54815350(S NOMED) Diagnosis active 12/14/2021 Atopic dermatitis (disorder) 23015390(S NOMED) Diagnosis active 12/07/2021 Atopic dermatitis (disorder) 75769528(S NOMED) Diagnosis active 11/30/2021 Atopic dermatitis (disorder) 93459590(S NOMED) Diagnosis active 11/23/2021 Atopic dermatitis (disorder) 73606327(S NOMED) Diagnosis active 11/20/2021 Atopic dermatitis (disorder) 54531558(S NOMED) Diagnosis active 10/31/2021 Atopic dermatitis (disorder) 21094408(S NOMED) Diagnosis active 10/26/2021 Atopic dermatitis (disorder) 32538902(S NOMED) Diagnosis active 10/19/2021 Atopic dermatitis (disorder) 97101247(S NOMED) Diagnosis active 10/12/2021 Atopic dermatitis (disorder) 19450655(S NOMED) Diagnosis active 10/05/2021 Atopic dermatitis (disorder) 31919610(S NOMED) Diagnosis active 09/28/2021 Atopic dermatitis (disorder) 90178524(S NOMED) Diagnosis active 09/21/2021 Psoriasis vulgaris (disorder) 548923479( SNOMED) Diagnosis active 09/14/2021 Atopic dermatitis (disorder) 64294578(S NOMED) Diagnosis active 09/07/2021 Atopic dermatitis (disorder) 02742776(S NOMED) Diagnosis active 08/31/2021 Psoriasis vulgaris (disorder) 689778133( SNOMED) Diagnosis active 08/24/2021 Atopic dermatitis (disorder) 86659863(S NOMED) Diagnosis active 08/24/2021 Psoriasis vulgaris (disorder) 645843838( SNOMED) Diagnosis active 08/10/2021 Psoriasis vulgaris (disorder) 931278014( SNOMED) Diagnosis active 08/03/2021 Atopic dermatitis (disorder) 32977335(S NOMED) Diagnosis active 05/28/2021 Tinea pedis (disorder) 8462602(SN OMED) Diagnosis active 05/28/2021 Itching of skin (finding) 617509970( SNOMED) Diagnosis active 05/28/2021 Atopic dermatitis (disorder) 89313591(S NOMED) Diagnosis active 05/10/2021 Atopic dermatitis (disorder) 07176307(S NOMED) Diagnosis active 04/20/2021 Atopic dermatitis (disorder) 34952836(S NOMED) Diagnosis active 04/06/2021 Atopic dermatitis (disorder) 30096380(S NOMED) Diagnosis active 03/30/2021 Atopic dermatitis (disorder) 93841002(S NOMED) Diagnosis active 03/23/2021 Atopic dermatitis (disorder) 23387150(S NOMED) Diagnosis active 03/23/2021 Tinea pedis (disorder) 4412962(SN OMED) Diagnosis active 03/23/2021 Tinea corporis (disorder) 41298040(S NOMED) Diagnosis active 03/23/2021 Itching of skin (finding) 793798001( SNOMED) Diagnosis active 03/23/2021 Atopic dermatitis (disorder) 92591250(S NOMED) Diagnosis active 03/19/2021 Atopic dermatitis (disorder) 87947248(S NOMED) Diagnosis active 03/16/2021 Atopic dermatitis (disorder) 21986801(S NOMED) Diagnosis active 03/12/2021 Atopic dermatitis (disorder) 96366112(S NOMED) Diagnosis active 03/09/2021 Atopic dermatitis (disorder) 19824249(S NOMED) Diagnosis active 03/05/2021 Atopic dermatitis (disorder) 88992325(S NOMED) Diagnosis active 03/02/2021 Atopic dermatitis (disorder) 06207753(S NOMED) Diagnosis active 02/19/2021 Atopic dermatitis (disorder) 16523842(S NOMED) Diagnosis active 02/16/2021 Itching of skin (finding) 743036246( SNOMED) Diagnosis active 02/02/2021 Atopic dermatitis (disorder) 99212530(S NOMED) Diagnosis active 02/02/2021 Atopic dermatitis (disorder) 94949212(S NOMED) Diagnosis active 01/29/2021 Psoriasis vulgaris (disorder) 004022816( SNOMED) Diagnosis active 01/26/2021 Atopic dermatitis (disorder) 42296492(S NOMED) Diagnosis active 01/22/2021 Atopic dermatitis (disorder) 60472486(S NOMED) Diagnosis active 01/19/2021 Atopic dermatitis (disorder) 34056666(S NOMED) Diagnosis active 01/15/2021 Atopic dermatitis (disorder) 70806911(S NOMED) Diagnosis active 01/12/2021 Atopic dermatitis (disorder) 83129192(S NOMED) Diagnosis active 01/08/2021 Atopic dermatitis (disorder) 16970411(S NOMED) Diagnosis active 01/05/2021 Atopic dermatitis (disorder) 63431850(S NOMED) Diagnosis active 01/01/2021 Atopic dermatitis (disorder) 72003564(S NOMED) Diagnosis active 12/29/2020 Atopic dermatitis (disorder) 91771090(S NOMED) Diagnosis active 12/22/2020 Atopic dermatitis (disorder) 56059975(S NOMED) Diagnosis active 12/18/2020 Psoriasis vulgaris (disorder) 277826979( SNOMED) Diagnosis active 12/15/2020 Atopic dermatitis (disorder) 54977250(S NOMED) Diagnosis active 12/11/2020 Atopic dermatitis (disorder) 86126013(S NOMED) Diagnosis active 12/08/2020 Atopic dermatitis (disorder) 61720997(S NOMED) Diagnosis active 12/08/2020 Tinea pedis (disorder) 0407402(SN OMED) Diagnosis active 12/08/2020 Tinea corporis (disorder) 03141816(S NOMED) Diagnosis active 12/08/2020 Atopic dermatitis (disorder) 24073350(S NOMED) Diagnosis active 12/04/2020 Atopic dermatitis (disorder) 99771083(S NOMED) Diagnosis active 12/01/2020 Atopic dermatitis (disorder) 91816542(S NOMED) Diagnosis active 11/27/2020 Atopic dermatitis (disorder) 42007555(S NOMED) Diagnosis active 11/24/2020 Atopic dermatitis (disorder) 83640395(S NOMED) Diagnosis active 11/22/2020 Atopic dermatitis (disorder) 50144918(S NOMED) Diagnosis active 11/17/2020 Atopic dermatitis (disorder) 43875058(S NOMED) Diagnosis active 11/13/2020 Atopic dermatitis (disorder) 88904385(S NOMED) Diagnosis active 11/10/2020 Atopic dermatitis (disorder) 33778552(S NOMED) Diagnosis active 11/06/2020 Atopic dermatitis (disorder) 88095017(S NOMED) Diagnosis active 11/03/2020 Atopic dermatitis (disorder) 73531768(S NOMED) Diagnosis active 10/30/2020 Atopic dermatitis (disorder) 26302654(S NOMED) Diagnosis active 10/27/2020 Atopic dermatitis (disorder) 98209345(S NOMED) Diagnosis active 10/23/2020 Atopic dermatitis (disorder) 71805608(S NOMED) Diagnosis active 10/20/2020 Atopic dermatitis (disorder) 46231372(S NOMED) Diagnosis active 10/16/2020 Surgical follow-up (finding) 825164177( SNOMED) Diagnosis active 10/09/2020 Tinea pedis (disorder) 1992813(SN OMED) Diagnosis active 10/06/2020 Tinea corporis (disorder) 69150249(S NOMED) Diagnosis active 10/06/2020 Follicular cysts of skin and subcutaneous tissue (disorder) 830079904( SNOMED) Diagnosis active 09/27/2020 Atopic dermatitis (disorder) 92116545(S NOMED) Diagnosis active 09/25/2020 Atopic dermatitis (disorder) 29488689(S NOMED) Diagnosis active 09/18/2020 Psoriasis vulgaris (disorder) 287425109( SNOMED) Diagnosis active 09/15/2020 Atopic dermatitis (disorder) 65776506(S NOMED) Diagnosis active 09/11/2020 Psoriasis vulgaris (disorder) 313131525( SNOMED) Diagnosis active 09/08/2020 Intrinsic (allergic) eczema [...] Diagnosis active 04/23/2019 Disorder of skin (disorder) 06795519(S NOMED) Diagnosis active 12/29/2018 Atopic dermatitis (disorder) 98175615(S NOMED) Diagnosis active 12/01/2018 Atopic dermatitis (disorder) 60049262(S NOMED) Diagnosis active 11/03/2018 Atopic dermatitis (disorder) 09769480(S NOMED) Diagnosis active 01/26/2018 Itching of skin (finding) 329456783( SNOMED) Diagnosis active 10/10/2017 Melanocytic nevus of trunk (disorder) 220581446( SNOMED) Diagnosis active 08/22/2017 Benign neoplasm of skin of upper limb (disorder) 89495609(S NOMED) Diagnosis active 08/08/2017 Itching of skin (finding) 876761941( SNOMED) Diagnosis active 07/29/2017 Benign neoplasm of skin of trunk (disorder) 73046515(S NOMED) Diagnosis active 07/18/2017 Atopic dermatitis (disorder) 35349816(S NOMED) Diagnosis active 06/18/2017 Atopic dermatitis (disorder) 37349305(S NOMED) Diagnosis active 06/18/2017 Atopic dermatitis (disorder) 66836758(S NOMED) Diagnosis active 05/09/2017 Tinea corporis (disorder) 39238122(S NOMED) Diagnosis active 02/07/2017 Atopic dermatitis (disorder) 19530319(S NOMED) Diagnosis active 12/10/2016 Atopic dermatitis (disorder) 82022394(S NOMED) Diagnosis active 11/25/2016 Itching of skin (finding) 845879945( SNOMED) Diagnosis active 10/23/2016 Tinea corporis (disorder) 24315047(S NOMED) Diagnosis active 09/09/2016 Tinea corporis (disorder) 97687069(S NOMED) Diagnosis active 07/29/2016 Tinea corporis (disorder) 60383522(S NOMED) Diagnosis active 07/03/2016 Atopic dermatitis (disorder) 50836590(S NOMED) Diagnosis active 05/20/2016 Atopic dermatitis (disorder) 06100918(S NOMED) Diagnosis active 02/28/2016 Herpes labialis (disorder) 5990230(SN OMED) Diagnosis active 12/20/2015 Atopic dermatitis (disorder) 50879454(S NOMED) Diagnosis active 09/07/2015 Atopic dermatitis (disorder) 18778975(S NOMED) Diagnosis active 05/31/2015 Benign neoplasm of skin of trunk (disorder) 91827704(S NOMED) Diagnosis active 05/30/2015 Contact dermatitis caused by solar radiation (disorder) 38562697(S NOMED) Diagnosis active 01/04/2015 Dermatophytosis of the body (disorder) 467551991( SNOMED) Diagnosis active 10/25/2014 Neoplasm of uncertain behavior of skin (disorder) 11150256(S NOMED) Diagnosis active 05/31/2014 History of clinical finding in subject (situation) 547232381( SNOMED) Problem active Arthritis (disorder) 0561662(SN OMED) Problem active Increased blood pressure (finding) 07598034(S NOMED) Problem active Hypercholesterolemia (disorder) 94698804(S NOMED) Problem active Atrial fibrillation (disorder) 04368978(S NOMED) Problem active Secondary restless legs syndrome (disorder) 361653415( SNOMED) Problem active Eczema (disorder) 21336625(S NOMED) Problem active Psoriasis (disorder) 9455917(SN OMED) Problem active Basal cell carcinoma of skin (disorder) 590617223( SNOMED) Problem active Diverticulitis (morphologic abnormality) 28300324(S NOMED) Problem active Hypothyroidism (disorder) 54836864(S NOMED) Problem active Malignant tumor of thyroid gland (disorder) 065119486( SNOMED) Problem active Results No data Encounters Service provided at [facility], [address] [place] [address], [address], [place], [place] [id number]. Office phonenumber is [phone]. Office fax number is [phone]. Encounter Diagnosis Location Date / Time Type Eczema (L20.89) [facility] 01/31/2025 15:15:00 [place] N I Reason For Referral No [...] Skin Type - II; Treatment Number - 305; Render Post-care in the Note - no; Total Body Energy - 880 mj hold dose; Comments on Previous Treatment - Room 3, no fans.; Protocol - Photochemotherapy: Mineral Oil and NBUVB; Total Body Time - 3:58 min; Total Treatment Time -3:58 min; Location (Body Touches will Override) - full body. Plan of Care Code Detail Instructions 914724 ketoconazole 2 % shampoo Apply t o damp hair, lather leave in 5 minutes and rinse out. Use when shampooing 615665 ketoconazole 2 % shampoo Apply t o damp hair, lather leave in 5 minutes and rinse out. Use when shampooing 949223 betamethasone valerate 0.1 % lot ion Apply AM and PM scalp for itch 496368 betamethasone diprop ionate 0.05 % lotion Apply Am and PM scalp itch as needed 543745 hydroxyzine HCl 10 mg tablet Duong e one pill po at supper and if needed bedtime prn itch. Do not drive or operate heavy machinery 370181 fluocinonide 0.05 % topical solu tion Apply 5-10 drops AM and PM scalp and massage in 530167 mupirocin 2 % topical ointment A pply AM and PM right cheek for 10 days crust/scab 906484 ketoconazole 2 % shampoo Apply t o damp hair, lather leave in 5 minutes and rinse out. Use when shampooing 479614 clobetasol 0.05 % topical cream Apply AM and PM rash buttocks and left knee 741809 clobetasol 0.05 % scalp solution Apply 5-10 drops to scalp itchy area and massage in 062113 clobetasol 0.05 % scalp solution Apply 5-10 drops to scalp itchy area and massage in 891183 halobetasol propiona te 0.05 % topical cream Apply AM and PM eczema left hand and foot for 2 weeks when needed. Never use face groin or underarms 549842 ciclopirox 0.77 % topical cream Apply AM and PM to tops sides bottoms of left foot and between toes for 4 weeks 229087 clobetasol 0.05 % topical cream Apply AM and PM rash buttocks and left knee 456020 ketoconazole 2 % topical cream A pply AM and PM to top, side, bottom of left foot and between toes for 4 weeks 991611 ciclopirox 0.77 % topical cream Apply AM and PM to tops sides bottoms of left foot and between toes for 4 weeks 829912 ciclopirox 0.77 % topical cream Apply AM and PM to tops sides bottoms of left foot and between toes for 4 weeks 159542 clobetasol 0.05 % topical cream Apply AM and PM rash buttocks and left knee 379922 clobetasol 0.05 % topical cream Apply AM and PM rash buttocks and left knee 6933345 Sernivo 0.05 % topical spray wit h pump Apply AM and PM scalp and massage in 990126 clobetasol 0.05 % scalp solution Apply 5-10 drops to scalp itchy area and massage in 062558 ciclopirox 0.77 % topical cream Apply AM and PM to tops, sides, bottom of feet, between toes for 4 weeks. 645802 griseofulvin microsize 500 mg ta blet Take one PO QD with food and milk 541689 griseofulvin microsize 500 mg ta blet Take one PO QD with food and milk 764601 mupirocin 2 % topical ointment A pply to surgical site on forehead twice a day x 7-14 days. 728297 mupirocin 2 % topical ointment A pply to surgical site on forehead twice a day x 7-14 days. 5151542 DermOtic Oil 0.01 % ear drops Ap ply 2-4 drops right ear for 2 weeks 2635876 DermOtic Oil 0.01 % ear drops Ap ply 2-4 drops right ear for 2 weeks 9626117 DermOtic Oil 0.01 % ear drops Ap ply 2-4 drops right ear for 2 weeks 209286 clobetasol 0.05 % topical cream Apply AM and PM rash buttocks and left knee 221644 clobetasol 0.05 % topical cream APPLY AM AND PM ECZEMA LOWER LEGS FOR UP TO 2 WEEKS WHEN NEEDED 326906 terbinafine HCl 250 mg tablet Ta ke one po qd 848068 terbinafine HCl 250 mg tablet Ta ke one po QD. Do not drink alcohol with this medication 539016 terbinafine HCl 250 mg tablet Ta ke one po QD. Do not drink alcohol with this medication 622545 ciclopirox 0.77 % topical cream Apply AM and PM left leg and buttocks for 4 weeks 122691 terbinafine HCl 250 mg tablet Ta ke one po QD. Do not drink alcohol with this medication 819712 ciclopirox 0.77 % topical cream Apply AM and PM tinea left lower leg for 4 weeks until clear 767176 clobetasol 0.05 % topical cream APPLY AM AND PM ECZEMA LOWER LEGS FOR UP TO 2 WEEKS WHEN NEEDED 556131 terbinafine HCl 250 mg tablet Ta ke one tablet by mouth once daily. 779699 griseofulvin microsize 500 mg ta blet Take one pill by mouth daily with food and milk. 978425 griseofulvin microsize 500 mg ta blet Take one PO QD with food and milk 360221 ciclopirox 0.77 % topical cream Apply AM and PM to tinea buttocks for 4 weeks 017923 griseofulvin microsize 500 mg ta blet Take one po qd with food and milk 630213 clobetasol 0.05 % topical cream APPLY AM AND PM ECZEMA BUTTOCKS FOR UP TO 2 WEEKS WHEN NEEDED 054679 clobetasol 0.05 % topical cream APPLY AM AND PM ECZEMA BACK AND BUTTOCKS FOR UP TO 2 WEEKS WHEN NEEDED 149953 betamethasone diprop ionate 0.05 % lotion Apply 5-10 drops once to twice daily to scalp massage into scalp 959865 clobetasol 0.05 % topical cream Apply am and pm eczema back buttocks 363217 betamethasone diprop ionate 0.05 % topical cream Apply am and pm dry patches upper back and buttocks Instructions No Data Social History Code Activity Start Date End Date [id number] (SNOMED) Never smoker Sex male Sexual orientation Unspecified Gender identity Unspecified Vital Signs No data
--- NOTE | 2025-02-04 11:04 | A.SPINEOV_ITS ---
Intake Visit Reasons: Spondylolysis, lumbar region Intake Note: Mr. Nice is here today c/o low back and neck pain with tingling going into toes. Warble Saw Operator Required: No Allergies No Known Allergies (No Known Allergies*) Allergy (Verified 01/20/25 15:07) Assessment & Plan Assessment & Plan (1) Low back pain: Code(s): M54.50 - Low back pain, unspecified Category: Medical Plan Dear Dr Reyes, Thank you for referring Mr Nice to our office today. He is a very nice 69-year-old gentleman presents to the office today for evaluation of chronic low back pain that is been going on for years. It localizes itself over the right side of the low back more toward the SI joint region. He does not have any referred pain down the legs. He has no centralized back pain. He had an MRI done showing significant scoliotic curvature with degenerative disc disease and was sent today to see us for evaluation of surgery. He has been through physical therapy in the past, has seen a chiropractor. He has also tried acupuncture. He currently takes Tylenol. He can not take anti-inflammatories secondary to anticoagulant use. His pain is aggravated with standing and periodically will get spasms even when he sitting that can be quite intense. He has numbness of his toes and burning sensation in his toes but nothing radiating down the back into the legs. PMH: He has a history of sleep apnea, hypertension, kidney stones, left bundle branch block, thyroid cancer status post thyroidectomy, Mohs surgery comes a tonsillectomy, appendectomy. He did have an open appendectomy when he was very young with an incision on the right lower quadrant but outside of that no major abdominal surgery. Denies any history of heart attacks, strokes, major kidney disease, liver disease etc.. He did have a pulmonary embolus when he had COVID and has been maintained on rivaroxaban since that time. Social hx: Does not smoke, drink use any recreational drugs Medications: Tylenol, diltiazem, rivaroxaban, [place] threes, metoprolol, potassium, allopurinol levothyroxine Allergies: None Physical exam: Awake alert oriented no acute distress, he is able to stand up on his own walk down the hallways however he is very slow to walk. He tells me that he feels as though he can not exactly localize where his feet are when he steps so he is very slow and has to feel as way along the floor. On gross motor examination he has no focal deficits. Reflexes diminished in the lower extremities, normal reflexes in the upper extremities. No Weldon's sign, no clonus. Imaging review: Lumbar MRI done at [facility] shows extensive degenerative changes in the setting of scoliotic curvature of the spine as well as rotational curvature at the upper lumbar levels. He does not have any significant central or foraminal stenosis that I can appreciate. CT scan done at [facility] shows he has evidence of auto fusion in the upper lumbar spine. It may not be complete fusion however. He has a severely collapsed disc at L4-5. He has facet arthropathy at multiple levels. Impression: 69-year-old gentleman presents for right-sided low back pain that seems to localize itself over maybe the SI joint or the lower lumbar facet joints on the right side. To this point he has done some physical therapy and seen a chiropractor. He has extensive degenerative changes in his lumbar spine with scoliotic curvature and some rotational curvature at the upper lumbar levels with some degree of auto fusion already present. I would like to get a little more information about where this maybe coming from as the patient does not have any degree of centralized low back pain. It seems unusual given the scoliosis, but this could be some kind of secondary radiating pains due to the biomechanics of the curvature. I would like him to see Dr. Castellanos and undergo facet blocks or possibly even an SI joint injection based on what he thinks on his examination and reviewing the MRI. Ultimately he may end up needing lumbar fusion but I think we can start by trying to figure out exactly where the pain is coming from. I would like to see the patient back in 3 months after he has completed his injections. In the interim I will review the imaging with Dr. Rodríguez. Thank you for allowing us to care for your patient. The total time spent with this visit with this patient was 45 minutes reviewing history, physical exam, lumbar imaging review, and implementation of treatment plan or further diagnostic testing Hero Rodríguez MD,PhD [facility] Orders: Referrals Pain Management Referral M54.50 - Low back pain, unspecified Coding Level of Care Code New Pt Level 4 (65417) Diagnoses Low back pain M54.50
== END 2025-02-04 12:05 | disposition home or self-care (01) ==
LOC: HO.HNS 10:14
PROVIDERS: PCP Internal Medicine; Referring Provider Internal Medicine; Visit Provider Physician Assistant
DX: M54.50 Low back pain, unspecified (principal)
CPT/HCPCS: 99204

== ENCOUNTER 2025-03-07 10:33 | Outpatient (AMB) | payer BC, SELFPAY ==
--- NOTE | 2025-03-07 10:38 | A.OFFVIS_ITS ---
Vital Signs 03/07/25 10:39 Height 6 ft 3 in Weight 249 lb BMI 31.1 BP 136/58 L Blood Pressure Location Lt brachial Position Sitting Respiration 16 Pulse 87 Pulse Source Pulse Oximeter Pulse Oximetry (%) 98 Oxygen Delivery Method Room Air Intake Visit Reasons: Low back pain, unspecified Food Beverage Manager Required: No Allergies No Known Allergies (No Known Allergies*) Allergy (Verified 03/07/25 10:41) Medication List - Last Reconciled 03/07/25 by Taylor Saldana LPN allopurinol 100 mg PO DAILY 90 days atorvastatin 10 mg PO DAILY 90 days diltiazem HCl CD (Cardizem CD) 120 mg PO DAILY levothyroxine 137 mcg PO DAILY metoprolol succinate ER 50 mg PO DAILY [id number]-fish oil 300-1,000 mg (Bishop-3 Fish Oil) 1 cap PO DAILY potassium citrate ER 20 mEq (2 x 10 mEq (1,080 mg)) PO BID 90 days rivaroxaban 20 mg PO DAILY HPI HPI Low back pain, unspecified: Details: History of Present Illness The patient is a 69-year-old male presenting with chronic low back pain. The pain is localized to the right side toward the sacroiliac joint area and is associated with numbness in the toes. The patient reports that the pain worsens with walking and movements, reaching an intensity of 6 out of 10, and is s omewhat alleviated by Tylenol. The patient has a history of scoliosis and degenerative disc disease, as revealed by an MRI, which also showed significant disc degeneration at L4-5 with moderate foraminal stenosis. He has previously undergone physical therapy, long term care phlebotomist, and acupuncture, but these interventions provided only temporary relief. The [facility] and referred for consideration of potential facet and/or sacroiliac joint injections. If these interventions fail, a right L4-5 decompression of the right L5 nerve root may be considered. Pain Description - Onset: Chronic - Location: Right side toward the sacroiliac joint area - Quality: Associated with numbness in toes - Exacerbating factors: Walking, movements - Relieving factors: Tylenol - Intensity: 6 out of 10 Physical Exam - Musculoskeletal: Tenderness to palpation in the right paraspinal musculature, mild tenderness in the midline - Musculoskeletal: Lumbar extension is very limited, facet loading is very painful Results - MRI: Significant scoliosis with degenerative disc disease, disc degeneration at L4-5 with moderate foraminal stenosis Pain Management - Affect: Pain impacts daily activities and mobility - Analgesia: Currently using Tylenol, pain level 6 out of 10 - Activities of Daily Living: Uses a walker for mobility, pain limits walking and standing [facility] Medical History (Updated 03/07/25 @ 11:08 by Héctor Castellanos MD) Hypothyroidism History of thyroid cancer PAF (paroxysmal atrial fibrillation) Hepatic cyst Thyroid cancer Arthritis Vitamin D deficiency Multinodular thyroid Thyroid enlargement Acute respiratory failure with hypoxia Bacteremia Left bundle branch block Paroxysmal atrial fibrillation Atrial fibrillation with rapid ventricular response Scoliosis Hip pain Polycystic liver disease Tubular adenoma of colon Hypertension Obstructive sleep apnea History of kidney stones Hypercholesterolemia Obesity GERD (gastroesophageal reflux disease) Surgical History History of appendectomy History of colonoscopy History of lithotripsy History of removal of cyst History of thyroidectomy Family History Father Medical history unknown Mother Medical history unknown Social History Household Members: None Housing: House Do you presently have visiting nurse or other home services: No Alcohol intake: never Comment: HX SCOLIOSIS, FALL OUTSIDE 2 MONTHS AGO. stopped 2021 Patient Tobacco Use Status: Never used Tobacco e-Cigarette/Vaping Use: Never Used Second Hand Smoke Exposure: No service: No Current occupational status: retired Cognitive needs: No Hearing needs: No Vision needs: Yes Physical Exam Vital Signs: Last Vital Signs Pulse 87 03/07/25 10:39 Resp 16 03/07/25 10:39 BP 136/58 L 03/07/25 10:39 Pulse Ox 98 03/07/25 10:39 Oxygen Delivery Method Room Air 03/07/25 10:39 BMI result Body Mass Index 31.1 Assessment & Plan Assessment & Plan (1) Lumbar spondylolysis: Code(s): M43.06 - Spondylolysis, lumbar region Category: Medical (2) Scoliosis: Code(s): M41.9 - Scoliosis, unspecified Category: Medical Plan Plan Patient was informed and verbally consented to the use of an ambient scribe for clinic note documentation during this visit. 1. Chronic Low Back Pain - Plan to start with diagnostic bilateral L3 L4 L5 medial branch blocks for facet mediated LBP - Referral for physical therapy for dry needling and massage therapy of the ri t lumbar paraspinal muscles - Consideration of temporary nerve stimulation or radiofrequency ablation if positive response to diagnostic injections 2. Scoliosis - MRI findings indicate scoliosis contributing to muscular pain Discussion Notes We discussed the patient's chronic low back pain and the potential interventions, including diagnostic injections to identify the pain source. The possibility of temporary nerve stimulation or radiofrequency ablation was mentioned if the diagnostic injections are successful. The patient was informed about the limitations of surgical options due to the lack of a clear target for intervention. Patient Instructions - Follow up with physical therapy for dry needling and massage therapy - Await scheduling for diagnostic injections after insurance authorization - Use Tylenol as needed for pain management Orders: Orders PT Evaluation and Treatment 03/07/25 M43.06 - Spondylolysis, lumbar region, M41.9 - Scoliosis, unspecified Coding Level of Care Code New Pt Level 4 (10591) Diagnoses Lumbar spondylolysis M43.06 Scoliosis M41.9
[2025-03-07 10:39] VITALS: BP 136/58; PULSE 87; RESP 16; O2SAT 98; BMI 31.1
--- OUTSIDE RECORDS SUMMARY | 2025-03-07 13:34 | XMS_ITS ---
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 Name Role Phone Unavailable Primary Care Physician Unavailab le History Of Present Illness No Data Medications Medication Generic Name RxNorm Strength Strength Unit Route Dose Dose Form Frequency Date Started Date Ended Status Indication Sig betamethaso ne dipropionat e betameth asone dipropio bennett 661672 0.05 % Topica l lotio n 07/19/19 25 suspend ed Appl y Am and PM scal p itch as need ed betamethaso ne dipropionat e betameth asone dipropio bennett 714988 0.05 % Topica l lotio n 02/16/20 25 active Appl y AM and PM scal p and uppe r back itch as need ed betamethaso ne valerate betameth asone valerate 205309 0.1 % Topica l apply thin layer to skin lotio n as needed 07/20/19 25 active Appl y AM and PM scal p for itch ciclopirox ciclopir ox 981565 0.77 % Topica l cream Bid 09/07/19 20 suspend ed Appl y AM and PM to bonifacio a butt ocks for 4 week s ciclopirox ciclopir ox 546253 0.77 % Topica l cream BID 03/23/20 21 suspend ed Appl y AM and PM to tops , side s, gulshan om of feet , betw een toes for 4 week s. clobetasol clobetas ol 819371 0.05 % Topica l cream BID 05/19/20 19 suspend ed ECZEMA APPL Y AM AND PM ECZE MA BACK AND BUTT OCKS FOR UP TO 2 WEEK S WHEN NEED ED fluocinonid e fluocino nide 774265 0.05 % Topica l apply thin layer to skin solut ion as needed 05/18/20 24 active Appl y 5-10 drop s AM and PM scal p and mass age in halobetasol propionate halobeta jaiden propiona te 601104 0.05 % Topica l cream BID 08/31/19 23 suspend ed Appl y AM and PM ecze ma left hand and foot for 2 week s when need ed. Neve r use face groi n or unde rarm s ketoconazol e ketocona zole 386975 2 % Topica l cream 04/04/20 22 suspend ed Tinea Appl y AM and PM to top, side , gulshan om of left foot and betw een toes for 4 week s ketoconazol e ketocona zole 611547 2 % Topica l apply small amoun t to hair shamp oo When Shampooing 12/29/19 24 active Appl y to damp hair , lath er leav e in 5 ana amrik and rins e out. Use when sham pooi ng mupirocin mupiroci n 982994 2 % Topica l ointm ent 03/24/20 24 suspend ed Appl y AM and PM righ t rivka k for 10 days chanel t/sc ab Sernivo betameth asone dipropio bennett 2220279 0.05 % Topica l spray with pump 05/28/20 21 suspend ed Appl y AM and PM scal p and mass age in allopurinol allopuri nol 100 mg Oral 1 table t Qd active atorvastati n atorvast atin 10 mg Oral 1 table t daily active diltiazem HCl diltiaze m HCl 120 mg Oral 1 table t Qd active Fish Oil omega-3 fatty acids-vi tamin E Oral suspend ed griseofulvi n microsize griseofu lvin microsiz e 934515 500 mg Oral table t QD 10/07/19 21 suspend ed Tinea Take one PO QD with food and milk hydroxyzine HCl hydroxyz ine HCl 203887 10 mg Oral 1 table t QHS 07/19/19 25 suspend ed Take one pill po at supp er and if need ed bedt lavonne prn itch . Do not driv e or oper ate heav y mach iner y levothyroxi ne levothyr oxine 137 mcg Oral 1 table t daily active lutein lutein Oral suspend ed PreserVisio n AREDS vitamins A,C,E-zi nc-coppe r 14,320-22 6-200 unit-mg-u nit Oral 1 capsu le Qd active Xarelto rivaroxa ban 20 mg Oral 1 table t Qd active metoprolol tartrate metoprol ol tartrate 50 mg Oral 1 table t QD active DermOtic Oil fluocino lone acetonid e oil 3603730 0.01 % Otic (ear) drops BID 08/22/19 21 suspend ed Eczema Appl y 2-4 drop s righ t ear for 2 week s clobetasol clobetas ol 666039 0.05 % Scalp solut ion 03/23/20 21 suspend ed Appl y 5-10 drop s to scal p itch y area and mass age in AmLODIPine Besylate NULL 0 16 suspend ed Fish Oil NULL 09/07/19 16 suspend ed Lutein NULL 05/20/20 16 suspend ed Niacin NULL 09/07/19 16 suspend ed Potassium Citrate ER NULL 04/12 14 suspend ed Problems Problem Code Type Status Date of Diagnosis Date of Resolution Atopic dermatitis (disorder) 47683286(S NOMED) Diagnosis active 03/07/2025 Atopic dermatitis (disorder) 82787930(S NOMED) Diagnosis active 03/04/2025 Atopic dermatitis (disorder) 52395436(S NOMED) Diagnosis active 02/28/2025 Atopic dermatitis (disorder) 17904396(S NOMED) Diagnosis active 02/25/2025 Atopic dermatitis (disorder) 51018852(S NOMED) Diagnosis active 02/22/2025 Atopic dermatitis (disorder) 31642455(S NOMED) Diagnosis active 02/18/2025 Atopic dermatitis (disorder) 09656832(S NOMED) Diagnosis active 02/16/2025 Atopic dermatitis (disorder) 75793891(S NOMED) Diagnosis active 02/15/2025 Atopic dermatitis (disorder) 49508121(S NOMED) Diagnosis active 02/14/2025 Atopic dermatitis (disorder) 55138692(S NOMED) Diagnosis active 02/11/2025 Atopic dermatitis (disorder) 15868024(S NOMED) Diagnosis active 02/02/2025 Atopic dermatitis (disorder) 10032080(S NOMED) Diagnosis active 01/31/2025 Atopic dermatitis (disorder) 71841550(S NOMED) Diagnosis active 01/26/2025 Atopic dermatitis (disorder) 79162570(S NOMED) Diagnosis active 01/21/2025 Atopic dermatitis (disorder) 48156929(S NOMED) Diagnosis active 01/19/2025 Atopic dermatitis (disorder) 27991494(S NOMED) Diagnosis active 01/07/2025 Atopic dermatitis (disorder) 27327493(S NOMED) Diagnosis active 01/05/2025 Atopic dermatitis (disorder) 59074013(S NOMED) Diagnosis active 01/03/2025 Atopic dermatitis (disorder) 14271239(S NOMED) Diagnosis active 12/31/2024 Atopic dermatitis (disorder) 65284821(S NOMED) Diagnosis active 12/29/2024 Atopic dermatitis (disorder) 98610179(S NOMED) Diagnosis active 12/27/2024 Atopic dermatitis (disorder) 04609418(S NOMED) Diagnosis active 12/22/2024 Atopic dermatitis (disorder) 40261206(S NOMED) Diagnosis active 12/17/2024 Atopic dermatitis (disorder) 29913072(S NOMED) Diagnosis active 12/10/2024 Atopic dermatitis (disorder) 12859299(S NOMED) Diagnosis active 12/08/2024 Atopic dermatitis (disorder) 34854439(S NOMED) Diagnosis active 12/03/2024 Atopic dermatitis (disorder) 74995893(S NOMED) Diagnosis active 12/01/2024 Neoplasm of uncertain behavior of skin (disorder) 07671828(S NOMED) Diagnosis active 11/29/2024 Atopic dermatitis (disorder) 21267549(S NOMED) Diagnosis active 11/29/2024 Atopic dermatitis (disorder) 42350804(S NOMED) Diagnosis active 11/29/2024 Atopic dermatitis (disorder) 04356328(S NOMED) Diagnosis active 11/26/2024 Atopic dermatitis (disorder) 64994568(S NOMED) Diagnosis active 11/24/2024 Atopic dermatitis (disorder) 34820154(S NOMED) Diagnosis active 11/19/2024 Atopic dermatitis (disorder) 38467695(S NOMED) Diagnosis active 11/12/2024 Atopic dermatitis (disorder) 95695224(S NOMED) Diagnosis active 11/08/2024 Atopic dermatitis (disorder) 69793058(S NOMED) Diagnosis active 11/05/2024 Atopic dermatitis (disorder) 01181043(S NOMED) Diagnosis active 11/03/2024 Atopic dermatitis (disorder) 33947515(S NOMED) Diagnosis active 10/29/2024 Atopic dermatitis (disorder) 35194726(S NOMED) Diagnosis active 10/27/2024 Atopic dermatitis (disorder) 36196821(S NOMED) Diagnosis active 10/25/2024 Atopic dermatitis (disorder) 61873001(S NOMED) Diagnosis active 10/20/2024 Atopic dermatitis (disorder) 72216987(S NOMED) Diagnosis active 10/13/2024 Atopic dermatitis (disorder) 18658765(S NOMED) Diagnosis active 10/11/2024 Atopic dermatitis (disorder) 39776614(S NOMED) Diagnosis active 10/08/2024 Atopic dermatitis (disorder) 89804074(S NOMED) Diagnosis active 10/01/2024 Atopic dermatitis (disorder) 55571397(S NOMED) Diagnosis active 09/29/2024 Atopic dermatitis (disorder) 11532894(S NOMED) Diagnosis active 09/27/2024 Atopic dermatitis (disorder) 06376425(S NOMED) Diagnosis active 09/24/2024 Atopic dermatitis (disorder) 58000682(S NOMED) Diagnosis active 09/22/2024 Atopic dermatitis (disorder) 49373782(S NOMED) Diagnosis active 09/17/2024 Atopic dermatitis (disorder) 50285932(S NOMED) Diagnosis active 09/15/2024 Atopic dermatitis (disorder) 08493728(S NOMED) Diagnosis active 09/10/2024 Atopic dermatitis (disorder) 09429312(S NOMED) Diagnosis active 09/03/2024 Atopic dermatitis (disorder) 13603931(S NOMED) Diagnosis active 09/01/2024 Atopic dermatitis (disorder) 36406955(S NOMED) Diagnosis active 08/27/2024 Hemangioma of skin and subcutaneous tissue (disorder) 479227462( SNOMED) Diagnosis active 08/25/2024 Seborrheic keratosis (disorder) 908740216( SNOMED) Diagnosis active 08/25/2024 Disorder of pigmentation (disorder) 431153560( SNOMED) Diagnosis active 08/25/2024 Melanocytic nevus of trunk (disorder) 586443787( SNOMED) Diagnosis active 08/25/2024 Atopic dermatitis (disorder) 08340028(S NOMED) Diagnosis active 08/25/2024 Patient encounter status (finding) 526892132( SNOMED) Diagnosis active 08/25/2024 Atopic dermatitis (disorder) 22345446(S NOMED) Diagnosis active 08/25/2024 Atopic dermatitis (disorder) 63515580(S NOMED) Diagnosis active 08/23/2024 Atopic dermatitis (disorder) 39301725(S NOMED) Diagnosis active 08/18/2024 Atopic dermatitis (disorder) 92165289(S NOMED) Diagnosis active 08/11/2024 Atopic dermatitis (disorder) 77644872(S NOMED) Diagnosis active 08/06/2024 Atopic dermatitis (disorder) 20970051(S NOMED) Diagnosis active 08/02/2024 Atopic dermatitis (disorder) 54165092(S NOMED) Diagnosis active 07/30/2024 Atopic dermatitis (disorder) 12816011(S NOMED) Diagnosis active 07/21/2024 Atopic dermatitis (disorder) 39923713(S NOMED) Diagnosis active 07/19/2024 Disorder of pigmentation (disorder) 320038923( SNOMED) Diagnosis active 07/19/2024 Atopic dermatitis (disorder) 39420895(S NOMED) Diagnosis active 07/16/2024 Atopic dermatitis (disorder) 34590560(S NOMED) Diagnosis active 07/14/2024 Atopic dermatitis (disorder) 86664853(S NOMED) Diagnosis active 07/09/2024 Atopic dermatitis (disorder) 37951833(S NOMED) Diagnosis active 07/05/2024 Atopic dermatitis (disorder) 85167099(S NOMED) Diagnosis active 07/02/2024 Atopic dermatitis (disorder) 60718372(S NOMED) Diagnosis active 06/28/2024 Atopic dermatitis (disorder) 67290145(S NOMED) Diagnosis active 06/25/2024 Atopic dermatitis (disorder) 13536133(S NOMED) Diagnosis active 06/18/2024 Atopic dermatitis (disorder) 90402413(S NOMED) Diagnosis active 06/14/2024 Atopic dermatitis (disorder) 36521887(S NOMED) Diagnosis active 06/11/2024 Atopic dermatitis (disorder) 90079559(S NOMED) Diagnosis active 06/02/2024 Atopic dermatitis (disorder) 97676651(S NOMED) Diagnosis active 05/28/2024 Atopic dermatitis (disorder) 17766189(S NOMED) Diagnosis active 05/26/2024 Atopic dermatitis (disorder) 56194703(S NOMED) Diagnosis active 05/24/2024 Atopic dermatitis (disorder) 61386454(S NOMED) Diagnosis active 05/18/2024 Atopic dermatitis (disorder) 86584837(S NOMED) Diagnosis active 04/23/2024 Localized edema (finding) 391639335( SNOMED) Diagnosis active 03/24/2024 Atopic dermatitis (disorder) 35992040(S NOMED) Diagnosis active 01/30/2024 Hemangioma of skin and subcutaneous tissue (disorder) 458233464( SNOMED) Diagnosis active 12/29/2023 Seborrheic keratosis (disorder) 624101112( SNOMED) Diagnosis active 12/29/2023 Disorder of pigmentation (disorder) 028789904( SNOMED) Diagnosis active 12/29/2023 Melanocytic nevus of trunk (disorder) 222091075( SNOMED) Diagnosis active 12/29/2023 Atopic dermatitis (disorder) 10847193(S NOMED) Diagnosis active 12/29/2023 Seborrheic dermatitis (disorder) 23337669(S NOMED) Diagnosis active 12/29/2023 Patient encounter status (finding) 243410134( SNOMED) Diagnosis active 12/29/2023 History of malignant neoplasm of skin (situation) 229748964( SNOMED) Diagnosis active 12/29/2023 Atopic dermatitis (disorder) 69958570(S NOMED) Diagnosis active 12/19/2023 Atopic dermatitis (disorder) 26030256(S NOMED) Diagnosis active 12/12/2023 Atopic dermatitis (disorder) 14003446(S NOMED) Diagnosis active 12/05/2023 Atopic dermatitis (disorder) 41801242(S NOMED) Diagnosis active 11/21/2023 Atopic dermatitis (disorder) 43155438(S NOMED) Diagnosis active 11/14/2023 Atopic dermatitis (disorder) 03652433(S NOMED) Diagnosis active 11/07/2023 Atopic dermatitis (disorder) 06431019(S NOMED) Diagnosis active 10/31/2023 Atopic dermatitis (disorder) 60478620(S NOMED) Diagnosis active 10/24/2023 Atopic dermatitis (disorder) 99441534(S NOMED) Diagnosis active 10/17/2023 Atopic dermatitis (disorder) 62805002(S NOMED) Diagnosis active 10/10/2023 Atopic dermatitis (disorder) 66337753(S NOMED) Diagnosis active 10/03/2023 Atopic dermatitis (disorder) 94747359(S NOMED) Diagnosis active 09/26/2023 Atopic dermatitis (disorder) 21987279(S NOMED) Diagnosis active 09/05/2023 Atopic dermatitis (disorder) 65333818(S NOMED) Diagnosis active 08/29/2023 Atopic dermatitis (disorder) 47750641(S NOMED) Diagnosis active 08/22/2023 Atopic dermatitis (disorder) 92877886(S NOMED) Diagnosis active 08/15/2023 Atopic dermatitis (disorder) 56955705(S NOMED) Diagnosis active 08/08/2023 Atopic dermatitis (disorder) 33418915(S NOMED) Diagnosis active 08/01/2023 Atopic dermatitis (disorder) 01647935(S NOMED) Diagnosis active 07/25/2023 Atopic dermatitis (disorder) 38441935(S NOMED) Diagnosis active 07/18/2023 Atopic dermatitis (disorder) 55714509(S NOMED) Diagnosis active 07/11/2023 Hemangioma of skin and subcutaneous tissue (disorder) 033946055( SNOMED) Diagnosis active 07/07/2023 Seborrheic keratosis (disorder) 841689219( SNOMED) Diagnosis active 07/07/2023 Disorder of pigmentation (disorder) 421967349( SNOMED) Diagnosis active 07/07/2023 Melanocytic nevus of trunk (disorder) 235735527( SNOMED) Diagnosis active 07/07/2023 Atopic dermatitis (disorder) 88593242(S NOMED) Diagnosis active 07/07/2023 Patient encounter status (finding) 354371499( SNOMED) Diagnosis active 07/07/2023 History of malignant neoplasm of skin (situation) 666133580( SNOMED) Diagnosis active 07/07/2023 Atopic dermatitis (disorder) 19495639(S NOMED) Diagnosis active 07/04/2023 Atopic dermatitis (disorder) 21292237(S NOMED) Diagnosis active 06/30/2023 Atopic dermatitis (disorder) 87455279(S NOMED) Diagnosis active 06/27/2023 Atopic dermatitis (disorder) 51770329(S NOMED) Diagnosis active 06/20/2023 Atopic dermatitis (disorder) 10785308(S NOMED) Diagnosis active 06/17/2023 Atopic dermatitis (disorder) 08304682(S NOMED) Diagnosis active 06/13/2023 Atopic dermatitis (disorder) 22850939(S NOMED) Diagnosis active 06/09/2023 Atopic dermatitis (disorder) 76241320(S NOMED) Diagnosis active 06/06/2023 Atopic dermatitis (disorder) 27709930(S NOMED) Diagnosis active 06/02/2023 Atopic dermatitis (disorder) 98731465(S NOMED) Diagnosis active 05/30/2023 Atopic dermatitis (disorder) 98925110(S NOMED) Diagnosis active 05/26/2023 Atopic dermatitis (disorder) 51605835(S NOMED) Diagnosis active 05/23/2023 Atopic dermatitis (disorder) 32500116(S NOMED) Diagnosis active 05/14/2023 Atopic dermatitis (disorder) 89391036(S NOMED) Diagnosis active 05/12/2023 Atopic dermatitis (disorder) 53425359(S NOMED) Diagnosis active 05/09/2023 Atopic dermatitis (disorder) 86503165(S NOMED) Diagnosis active 05/05/2023 Atopic dermatitis (disorder) 08284284(S NOMED) Diagnosis active 05/02/2023 Atopic dermatitis (disorder) 71347895(S NOMED) Diagnosis active 04/28/2023 Atopic dermatitis (disorder) 54021055(S NOMED) Diagnosis active 04/25/2023 Atopic dermatitis (disorder) 69692543(S NOMED) Diagnosis active 04/18/2023 Atopic dermatitis (disorder) 63535426(S NOMED) Diagnosis active 04/14/2023 Atopic dermatitis (disorder) 08384634(S NOMED) Diagnosis active 04/11/2023 Atopic dermatitis (disorder) 99024070(S NOMED) Diagnosis active 04/07/2023 Atopic dermatitis (disorder) 91800675(S NOMED) Diagnosis active 04/04/2023 Atopic dermatitis (disorder) 71909701(S NOMED) Diagnosis active 03/31/2023 Atopic dermatitis (disorder) 99173003(S NOMED) Diagnosis active 03/28/2023 Surgical follow-up (finding) 620938927( SNOMED) Diagnosis active 03/25/2023 Basal cell carcinoma of face (disorder) 074641455( SNOMED) Diagnosis active 03/18/2023 Basal cell carcinoma of face (disorder) 460803768( SNOMED) Diagnosis active 03/05/2023 Neoplasm of uncertain behavior of skin (disorder) 76984679(S NOMED) Diagnosis active 03/05/2023 Atopic dermatitis (disorder) 14063664(S NOMED) Diagnosis active 03/03/2023 Atopic dermatitis (disorder) 80538034(S NOMED) Diagnosis active 02/28/2023 Atopic dermatitis (disorder) 70452011(S NOMED) Diagnosis active 02/20/2023 Atopic dermatitis (disorder) 25980223(S NOMED) Diagnosis active 02/17/2023 Atopic dermatitis (disorder) 09991027(S NOMED) Diagnosis active 02/14/2023 Atopic dermatitis (disorder) 80965870(S NOMED) Diagnosis active 02/10/2023 Atopic dermatitis (disorder) 06320465(S NOMED) Diagnosis active 02/07/2023 Atopic dermatitis (disorder) 60611434(S NOMED) Diagnosis active 02/03/2023 Atopic dermatitis (disorder) 14039797(S NOMED) Diagnosis active 01/31/2023 Atopic dermatitis (disorder) 29348502(S NOMED) Diagnosis active 01/24/2023 Neoplasm of uncertain behavior of skin (disorder) 30223004(S NOMED) Diagnosis active 01/20/2023 Atopic dermatitis (disorder) 37248000(S NOMED) Diagnosis active 01/20/2023 Atopic dermatitis (disorder) 12260098(S NOMED) Diagnosis active 01/17/2023 Atopic dermatitis (disorder) 14863956(S NOMED) Diagnosis active 01/10/2023 Atopic dermatitis (disorder) 44680984(S NOMED) Diagnosis active 01/06/2023 Atopic dermatitis (disorder) 46934448(S NOMED) Diagnosis active 01/03/2023 Atopic dermatitis (disorder) 60474387(S NOMED) Diagnosis active 12/27/2022 Atopic dermatitis (disorder) 60666227(S NOMED) Diagnosis active 12/20/2022 Atopic dermatitis (disorder) 71503011(S NOMED) Diagnosis active 12/16/2022 Atopic dermatitis (disorder) 94151803(S NOMED) Diagnosis active 12/13/2022 Atopic dermatitis (disorder) 14732264(S NOMED) Diagnosis active 12/06/2022 Atopic dermatitis (disorder) 55864314(S NOMED) Diagnosis active 12/02/2022 Atopic dermatitis (disorder) 18775184(S NOMED) Diagnosis active 11/29/2022 Atopic dermatitis (disorder) 31066597(S NOMED) Diagnosis active 11/25/2022 Atopic dermatitis (disorder) 04000852(S NOMED) Diagnosis active 11/19/2022 Atopic dermatitis (disorder) 23822795(S NOMED) Diagnosis active 11/15/2022 Atopic dermatitis (disorder) 29791983(S NOMED) Diagnosis active 11/11/2022 Atopic dermatitis (disorder) 71681252(S NOMED) Diagnosis active 11/08/2022 Atopic dermatitis (disorder) 39228020(S NOMED) Diagnosis active 11/04/2022 Atopic dermatitis (disorder) 34838210(S NOMED) Diagnosis active 11/01/2022 Atopic dermatitis (disorder) 85479271(S NOMED) Diagnosis active 10/28/2022 Atopic dermatitis (disorder) 67293218(S NOMED) Diagnosis active 10/25/2022 Neoplasm of uncertain behavior of skin (disorder) 69135505(S NOMED) Diagnosis active 10/21/2022 Atopic dermatitis (disorder) 25985863(S NOMED) Diagnosis active 10/18/2022 Atopic dermatitis (disorder) 65708608(S NOMED) Diagnosis active 10/18/2022 Atopic dermatitis (disorder) 58969047(S NOMED) Diagnosis active 09/27/2022 Atopic dermatitis (disorder) 56996828(S NOMED) Diagnosis active 09/23/2022 Atopic dermatitis (disorder) 02266910(S NOMED) Diagnosis active 09/20/2022 Atopic dermatitis (disorder) 36972055(S NOMED) Diagnosis active 09/16/2022 Atopic dermatitis (disorder) 24056685(S NOMED) Diagnosis active 09/13/2022 Atopic dermatitis (disorder) 11158854(S NOMED) Diagnosis active 09/09/2022 Atopic dermatitis (disorder) 93246735(S NOMED) Diagnosis active 09/06/2022 Atopic dermatitis (disorder) 39554540(S NOMED) Diagnosis active 09/02/2022 Atopic dermatitis (disorder) 37808837(S NOMED) Diagnosis active 08/30/2022 Atopic dermatitis (disorder) 47679594(S NOMED) Diagnosis active 08/30/2022 Atopic dermatitis (disorder) 80850326(S NOMED) Diagnosis active 08/19/2022 Atopic dermatitis (disorder) 02054858(S NOMED) Diagnosis active 08/16/2022 Atopic dermatitis (disorder) 86071796(S NOMED) Diagnosis active 08/13/2022 Atopic dermatitis (disorder) 31759257(S NOMED) Diagnosis active 08/09/2022 Atopic dermatitis (disorder) 85091776(S NOMED) Diagnosis active 08/05/2022 Tinea pedis (disorder) 8263656(SN OMED) Diagnosis active 08/05/2022 Atopic dermatitis (disorder) 20744504(S NOMED) Diagnosis active 08/02/2022 Atopic dermatitis (disorder) 50722116(S NOMED) Diagnosis active 07/26/2022 Atopic dermatitis (disorder) 74839435(S NOMED) Diagnosis active 07/19/2022 Atopic dermatitis (disorder) 69634559(S NOMED) Diagnosis active 07/12/2022 Atopic dermatitis (disorder) 88468202(S NOMED) Diagnosis active 07/05/2022 Atopic dermatitis (disorder) 26601269(S NOMED) Diagnosis active 06/28/2022 Atopic dermatitis (disorder) 80041406(S NOMED) Diagnosis active 06/21/2022 Atopic dermatitis (disorder) 77269774(S NOMED) Diagnosis active 06/14/2022 Atopic dermatitis (disorder) 26420013(S NOMED) Diagnosis active 06/07/2022 Atopic dermatitis (disorder) 94059779(S NOMED) Diagnosis active 05/31/2022 Atopic dermatitis (disorder) 74109187(S NOMED) Diagnosis active 05/03/2022 Atopic dermatitis (disorder) 84537693(S NOMED) Diagnosis active 04/26/2022 Atopic dermatitis (disorder) 24509303(S NOMED) Diagnosis active 04/19/2022 Atopic dermatitis (disorder) 20173662(S NOMED) Diagnosis active 04/12/2022 Atopic dermatitis (disorder) 48863065(S NOMED) Diagnosis active 04/05/2022 Atopic dermatitis (disorder) 75859598(S NOMED) Diagnosis active 04/03/2022 Tinea pedis (disorder) 7907487(SN OMED) Diagnosis active 04/03/2022 Atopic dermatitis (disorder) 69932017(S NOMED) Diagnosis active 03/29/2022 Atopic dermatitis (disorder) 59010483(S NOMED) Diagnosis active 03/22/2022 Atopic dermatitis (disorder) 43454562(S NOMED) Diagnosis active 03/15/2022 Atopic dermatitis (disorder) 90538362(S NOMED) Diagnosis active 2022 Atopic dermatitis (disorder) 15521912(S NOMED) Diagnosis active 03/01/2022 Atopic dermatitis (disorder) 32089278(S NOMED) Diagnosis active 02/22/2022 Atopic dermatitis (disorder) 40945684(S NOMED) Diagnosis active 02/15/2022 Atopic dermatitis (disorder) 49926129(S NOMED) Diagnosis active 02/08/2022 Atopic dermatitis (disorder) 94116958(S NOMED) Diagnosis active 02/01/2022 Atopic dermatitis (disorder) 50737863(S NOMED) Diagnosis active 01/18/2022 Atopic dermatitis (disorder) 80511844(S NOMED) Diagnosis active 01/11/2022 Atopic dermatitis (disorder) 05807615(S NOMED) Diagnosis active 01/04/2022 Atopic dermatitis (disorder) 39756694(S NOMED) Diagnosis active 12/31/2021 Atopic dermatitis (disorder) 11349604(S NOMED) Diagnosis active 12/28/2021 Atopic dermatitis (disorder) 55742687(S NOMED) Diagnosis active 12/21/2021 Atopic dermatitis (disorder) 54624144(S NOMED) Diagnosis active 12/14/2021 Atopic dermatitis (disorder) 03018567(S NOMED) Diagnosis active 12/07/2021 Atopic dermatitis (disorder) 66430817(S NOMED) Diagnosis active 11/30/2021 Atopic dermatitis (disorder) 30345632(S NOMED) Diagnosis active 11/23/2021 Atopic dermatitis (disorder) 84584699(S NOMED) Diagnosis active 11/20/2021 Atopic dermatitis (disorder) 49302066(S NOMED) Diagnosis active 10/31/2021 Atopic dermatitis (disorder) 46292358(S NOMED) Diagnosis active 10/26/2021 Atopic dermatitis (disorder) 54845911(S NOMED) Diagnosis active 10/19/2021 Atopic dermatitis (disorder) 54096831(S NOMED) Diagnosis active 10/12/2021 Atopic dermatitis (disorder) 87061534(S NOMED) Diagnosis active 10/05/2021 Atopic dermatitis (disorder) 88084537(S NOMED) Diagnosis active 09/28/2021 Atopic dermatitis (disorder) 11558729(S NOMED) Diagnosis active 09/21/2021 Psoriasis vulgaris (disorder) 011829529( SNOMED) Diagnosis active 09/14/2021 Atopic dermatitis (disorder) 15470957(S NOMED) Diagnosis active 09/07/2021 Atopic dermatitis (disorder) 43059527(S NOMED) Diagnosis active 08/31/2021 Psoriasis vulgaris (disorder) 272152950( SNOMED) Diagnosis active 08/24/2021 Atopic dermatitis (disorder) 60543450(S NOMED) Diagnosis active 08/24/2021 Psoriasis vulgaris (disorder) 564946691( SNOMED) Diagnosis active 08/10/2021 Psoriasis vulgaris (disorder) 006894356( SNOMED) Diagnosis active 08/03/2021 Atopic dermatitis (disorder) 15076600(S NOMED) Diagnosis active 05/28/2021 Tinea pedis (disorder) 0722615(SN OMED) Diagnosis active 05/28/2021 Itching of skin (finding) 099322480( SNOMED) Diagnosis active 05/28/2021 Atopic dermatitis (disorder) 51807328(S NOMED) Diagnosis active 05/10/2021 Atopic dermatitis (disorder) 03386565(S NOMED) Diagnosis active 04/20/2021 Atopic dermatitis (disorder) 67053064(S NOMED) Diagnosis active 04/06/2021 Atopic dermatitis (disorder) 24485361(S NOMED) Diagnosis active 03/30/2021 Atopic dermatitis (disorder) 15583456(S NOMED) Diagnosis active 03/23/2021 Atopic dermatitis (disorder) 10111577(S NOMED) Diagnosis active 03/23/2021 Tinea pedis (disorder) 3882693(SN OMED) Diagnosis active 03/23/2021 Tinea corporis (disorder) 05951110(S NOMED) Diagnosis active 03/23/2021 Itching of skin (finding) 400266743( SNOMED) Diagnosis active 03/23/2021 Atopic dermatitis (disorder) 40282601(S NOMED) Diagnosis active 03/19/2021 Atopic dermatitis (disorder) 31819272(S NOMED) Diagnosis active 03/16/2021 Atopic dermatitis (disorder) 04710110(S NOMED) Diagnosis active 03/12/2021 Atopic dermatitis (disorder) 77335320(S NOMED) Diagnosis active 03/09/2021 Atopic dermatitis (disorder) 35462007(S NOMED) Diagnosis active 03/05/2021 Atopic dermatitis (disorder) 92301702(S NOMED) Diagnosis active 03/02/2021 Atopic dermatitis (disorder) 99380714(S NOMED) Diagnosis active 02/19/2021 Atopic dermatitis (disorder) 79749853(S NOMED) Diagnosis active 02/16/2021 Itching of skin (finding) 904891560( SNOMED) Diagnosis active 02/02/2021 Atopic dermatitis (disorder) 90388602(S NOMED) Diagnosis active 02/02/2021 Atopic dermatitis (disorder) 84898774(S NOMED) Diagnosis active 01/29/2021 Psoriasis vulgaris (disorder) 613515857( SNOMED) Diagnosis active 01/26/2021 Atopic dermatitis (disorder) 54669435(S NOMED) Diagnosis active 01/22/2021 Atopic dermatitis (disorder) 67697386(S NOMED) Diagnosis active 01/19/2021 Atopic dermatitis (disorder) 33938094(S NOMED) Diagnosis active 01/15/2021 Atopic dermatitis (disorder) 75751264(S NOMED) Diagnosis active 01/12/2021 Atopic dermatitis (disorder) 58451098(S NOMED) Diagnosis active 01/08/2021 Atopic dermatitis (disorder) 43098729(S NOMED) Diagnosis active 01/05/2021 Atopic dermatitis (disorder) 80481054(S NOMED) Diagnosis active 01/01/2021 Atopic dermatitis (disorder) 74331232(S NOMED) Diagnosis active 12/29/2020 Atopic dermatitis (disorder) 05880261(S NOMED) Diagnosis active 12/22/2020 Atopic dermatitis (disorder) 13106307(S NOMED) Diagnosis active 12/18/2020 Psoriasis vulgaris (disorder) 144546917( SNOMED) Diagnosis active 12/15/2020 Atopic dermatitis (disorder) 71596388(S NOMED) Diagnosis active 12/11/2020 Atopic dermatitis (disorder) 44365843(S NOMED) Diagnosis active 12/08/2020 Atopic dermatitis (disorder) 16233573(S NOMED) Diagnosis active 12/08/2020 Tinea pedis (disorder) 3461322(SN OMED) Diagnosis active 12/08/2020 Tinea corporis (disorder) 37590609(S NOMED) Diagnosis active 12/08/2020 Atopic dermatitis (disorder) 44908827(S NOMED) Diagnosis active 12/04/2020 Atopic dermatitis (disorder) 90389879(S NOMED) Diagnosis active 12/01/2020 Atopic dermatitis (disorder) 65654878(S NOMED) Diagnosis active 11/27/2020 Atopic dermatitis (disorder) 28675830(S NOMED) Diagnosis active 11/24/2020 Atopic dermatitis (disorder) 79081548(S NOMED) Diagnosis active 11/22/2020 Atopic dermatitis (disorder) 42340404(S NOMED) Diagnosis active 11/17/2020 Atopic dermatitis (disorder) 84519481(S NOMED) Diagnosis active 11/13/2020 Atopic dermatitis (disorder) 49805238(S NOMED) Diagnosis active 11/10/2020 Atopic dermatitis (disorder) 32804539(S NOMED) Diagnosis active 11/06/2020 Atopic dermatitis (disorder) 22412584(S NOMED) Diagnosis active 11/03/2020 Atopic dermatitis (disorder) 96248588(S NOMED) Diagnosis active 10/30/2020 Atopic dermatitis (disorder) 08193829(S NOMED) Diagnosis active 10/27/2020 Atopic dermatitis (disorder) 26358609(S NOMED) Diagnosis active 10/23/2020 Atopic dermatitis (disorder) 30737705(S NOMED) Diagnosis active 10/20/2020 Atopic dermatitis (disorder) 57540452(S NOMED) Diagnosis active 10/16/2020 Surgical follow-up (finding) 767655232( SNOMED) Diagnosis active 10/09/2020 Tinea pedis (disorder) 1918311(SN OMED) Diagnosis active 10/06/2020 Tinea corporis (disorder) 57862256(S NOMED) Diagnosis active 10/06/2020 Follicular cysts of skin and subcutaneous tissue (disorder) 973845853( SNOMED) Diagnosis active 09/27/2020 Atopic dermatitis (disorder) 51285904(S NOMED) Diagnosis active 09/25/2020 Atopic dermatitis (disorder) 08861324(S NOMED) Diagnosis active 09/18/2020 Psoriasis vulgaris (disorder) 074085400( SNOMED) Diagnosis active 09/15/2020 Atopic dermatitis (disorder) 02241829(S NOMED) Diagnosis active 09/11/2020 Psoriasis vulgaris (disorder) 567655316( SNOMED) Diagnosis active 09/08/2020 Intrinsic (allergic) eczema [...] Diagnosis active 04/23/2019 Disorder of skin (disorder) 14409676(S NOMED) Diagnosis active 12/29/2018 Atopic dermatitis (disorder) 70213783(S NOMED) Diagnosis active 12/01/2018 Atopic dermatitis (disorder) 07548909(S NOMED) Diagnosis active 11/03/2018 Atopic dermatitis (disorder) 70747711(S NOMED) Diagnosis active 01/26/2018 Itching of skin (finding) 274668529( SNOMED) Diagnosis active 10/10/2017 Melanocytic nevus of trunk (disorder) 693799806( SNOMED) Diagnosis active 08/22/2017 Benign neoplasm of skin of upper limb (disorder) 33610562(S NOMED) Diagnosis active 08/08/2017 Itching of skin (finding) 650352036( SNOMED) Diagnosis active 07/29/2017 Benign neoplasm of skin of trunk (disorder) 47800510(S NOMED) Diagnosis active 07/18/2017 Atopic dermatitis (disorder) 49995892(S NOMED) Diagnosis active 06/18/2017 Atopic dermatitis (disorder) 22127981(S NOMED) Diagnosis active 06/18/2017 Atopic dermatitis (disorder) 09354452(S NOMED) Diagnosis active 05/09/2017 Tinea corporis (disorder) 46298133(S NOMED) Diagnosis active 02/07/2017 Atopic dermatitis (disorder) 32182259(S NOMED) Diagnosis active 12/10/2016 Atopic dermatitis (disorder) 33584941(S NOMED) Diagnosis active 11/25/2016 Itching of skin (finding) 231371163( SNOMED) Diagnosis active 10/23/2016 Tinea corporis (disorder) 07278715(S NOMED) Diagnosis active 09/09/2016 Tinea corporis (disorder) 09562316(S NOMED) Diagnosis active 07/29/2016 Tinea corporis (disorder) 60506295(S NOMED) Diagnosis active 07/03/2016 Atopic dermatitis (disorder) 08462579(S NOMED) Diagnosis active 05/20/2016 Atopic dermatitis (disorder) 02048281(S NOMED) Diagnosis active 02/28/2016 Herpes labialis (disorder) 2575667(SN OMED) Diagnosis active 12/20/2015 Atopic dermatitis (disorder) 24922669(S NOMED) Diagnosis active 09/07/2015 Atopic dermatitis (disorder) 93261500(S NOMED) Diagnosis active 05/31/2015 Benign neoplasm of skin of trunk (disorder) 33240150(S NOMED) Diagnosis active 05/30/2015 Contact dermatitis caused by solar radiation (disorder) 16356658(S NOMED) Diagnosis active 01/04/2015 Dermatophytosis of the body (disorder) 842593068( SNOMED) Diagnosis active 10/25/2014 Neoplasm of uncertain behavior of skin (disorder) 62593404(S NOMED) Diagnosis active 05/31/2014 History of clinical finding in subject (situation) 611741499( SNOMED) Problem active Arthritis (disorder) 9671785(SN OMED) Problem active Increased blood pressure (finding) 72658724(S NOMED) Problem active Hypercholesterolemia (disorder) 85016264(S NOMED) Problem active Atrial fibrillation (disorder) 10706881(S NOMED) Problem active Secondary restless legs syndrome (disorder) 611880651( SNOMED) Problem active Eczema (disorder) 98987345(S NOMED) Problem active Psoriasis (disorder) 4966433(SN OMED) Problem active Basal cell carcinoma of skin (disorder) 750258775( SNOMED) Problem active Diverticulitis (morphologic abnormality) 48678652(S NOMED) Problem active Hypothyroidism (disorder) 99975348(S NOMED) Problem active Malignant tumor of thyroid gland (disorder) 897111941( SNOMED) Problem active Results No data Encounters Service provided at [facility], [address] [place] [address], [address], [place], [place] [id number]. Office phonenumber is [phone]. Office fax number is [phone]. Encounter Diagnosis Location Date / Time Type Eczema (L20.89) [facility] 03/07/2025 15:30:00 UTC N I Reason For Referral [...] appendectomy (situation) Total thyroidectomy (procedure) Tonsillectomy (procedure) Tonsillectomy (procedure) Total thyroidectomy (procedure) [...] Skin Type - II; Treatment Number - 315; Render Post-care in the Note - no; Total Body Energy - 880 mj hold dose; Comments on Previous Treatment - Room 3, no fans.; Protocol - Photochemotherapy: Mineral Oil and NBUVB; Total Body Time - 4:00 min; Total Treatment Time -4:00 min; Location (Body Touches will Override) - full body. Plan of Care Code Detail Instructions 496791 ketoconazole 2 % shampoo Apply t o damp hair, lather leave in 5 minutes and rinse out. Use when shampooing 825231 betamethasone diprop ionate 0.05 % lotion Apply AM and PM scalp and upper back itch as needed 747828 ketoconazole 2 % shampoo Apply t o damp hair, lather leave in 5 minutes and rinse out. Use when shampooing 257349 ketoconazole 2 % shampoo Apply t o damp hair, lather leave in 5 minutes and rinse out. Use when shampooing 326466 betamethasone valerate 0.1 % lot ion Apply AM and PM scalp for itch 650157 betamethasone diprop ionate 0.05 % lotion Apply Am and PM scalp itch as needed 342071 hydroxyzine HCl 10 mg tablet Duong e one pill po at supper and if needed bedtime prn itch. Do not drive or operate heavy machinery 770233 fluocinonide 0.05 % topical solu tion Apply 5-10 drops AM and PM scalp and massage in 077389 mupirocin 2 % topical ointment A pply AM and PM right cheek for 10 days crust/scab 913917 ketoconazole 2 % shampoo Apply t o damp hair, lather leave in 5 minutes and rinse out. Use when shampooing 937224 clobetasol 0.05 % topical cream Apply AM and PM rash buttocks and left knee 328264 clobetasol 0.05 % scalp solution Apply 5-10 drops to scalp itchy area and massage in 539898 clobetasol 0.05 % scalp solution Apply 5-10 drops to scalp itchy area and massage in 052322 halobetasol propiona te 0.05 % topical cream Apply AM and PM eczema left hand and foot for 2 weeks when needed. Never use face groin or underarms 763594 ciclopirox 0.77 % topical cream Apply AM and PM to tops sides bottoms of left foot and between toes for 4 weeks 053480 clobetasol 0.05 % topical cream Apply AM and PM rash buttocks and left knee 204800 ketoconazole 2 % topical cream A pply AM and PM to top, side, bottom of left foot and between toes for 4 weeks 788859 ciclopirox 0.77 % topical cream Apply AM and PM to tops sides bottoms of left foot and between toes for 4 weeks 131555 ciclopirox 0.77 % topical cream Apply AM and PM to tops sides bottoms of left foot and between toes for 4 weeks 698668 clobetasol 0.05 % topical cream Apply AM and PM rash buttocks and left knee 571298 clobetasol 0.05 % topical cream Apply AM and PM rash buttocks and left knee 2292197 Sernivo 0.05 % topical spray wit h pump Apply AM and PM scalp and massage in 857604 clobetasol 0.05 % scalp solution Apply 5-10 drops to scalp itchy area and massage in 991015 ciclopirox 0.77 % topical cream Apply AM and PM to tops, sides, bottom of feet, between toes for 4 weeks. 893585 griseofulvin microsize 500 mg ta blet Take one PO QD with food and milk 360921 griseofulvin microsize 500 mg ta blet Take one PO QD with food and milk 600576 mupirocin 2 % topical ointment A pply to surgical site on forehead twice a day x 7-14 days. 740424 mupirocin 2 % topical ointment A pply to surgical site on forehead twice a day x 7-14 days. 4600949 DermOtic Oil 0.01 % ear drops Ap ply 2-4 drops right ear for 2 weeks 2751885 DermOtic Oil 0.01 % ear drops Ap ply 2-4 drops right ear for 2 weeks 0899671 DermOtic Oil 0.01 % ear drops Ap ply 2-4 drops right ear for 2 weeks 562957 clobetasol 0.05 % topical cream Apply AM and PM rash buttocks and left knee 804252 clobetasol 0.05 % topical cream APPLY AM AND PM ECZEMA LOWER LEGS FOR UP TO 2 WEEKS WHEN NEEDED 982267 terbinafine HCl 250 mg tablet Ta ke one po qd 992703 terbinafine HCl 250 mg tablet Ta ke one po QD. Do not drink alcohol with this medication 576215 terbinafine HCl 250 mg tablet Ta ke one po QD. Do not drink alcohol with this medication 259148 ciclopirox 0.77 % topical cream Apply AM and PM left leg and buttocks for 4 weeks 064151 terbinafine HCl 250 mg tablet Ta ke one po QD. Do not drink alcohol with this medication 614775 ciclopirox 0.77 % topical cream Apply AM and PM tinea left lower leg for 4 weeks until clear 750242 clobetasol 0.05 % topical cream APPLY AM AND PM ECZEMA LOWER LEGS FOR UP TO 2 WEEKS WHEN NEEDED 665165 terbinafine HCl 250 mg tablet Ta ke one tablet by mouth once daily. 227796 griseofulvin microsize 500 mg ta blet Take one pill by mouth daily with food and milk. 879455 griseofulvin microsize 500 mg ta blet Take one PO QD with food and milk 210586 ciclopirox 0.77 % topical cream Apply AM and PM to tinea buttocks for 4 weeks 374277 griseofulvin microsize 500 mg ta blet Take one po qd with food and milk 772706 clobetasol 0.05 % topical cream APPLY AM AND PM ECZEMA BUTTOCKS FOR UP TO 2 WEEKS WHEN NEEDED 429325 clobetasol 0.05 % topical cream APPLY AM AND PM ECZEMA BACK AND BUTTOCKS FOR UP TO 2 WEEKS WHEN NEEDED 196971 betamethasone diprop ionate 0.05 % lotion Apply 5-10 drops once to twice daily to scalp massage into scalp 817870 clobetasol 0.05 % topical cream Apply am and pm eczema back buttocks 734942 betamethasone diprop ionate 0.05 % topical cream Apply am and pm dry patches upper back and buttocks Instructions No Data Social History Code Activity Start Date End Date [id number] (SNOMED) Never smoker Sex male Sexual orientation Unspecified Gender identity Unspecified Vital Signs No data
--- OUTSIDE RECORDS SUMMARY | 2025-03-07 13:34 | XMS_ITS | Encounter Summary ---
Author Organization [facility] Address [address] [place] [address] Phone Care Team Providers Care Java Sybase Developer Name Role Phone Bhakti Reyes MD Primary Care Provider [phone] Encounter Details Date Type Department Care Team (Late st Contact Info) Description 01/11/2025 Procedure Pass [facility], Ct Scan - [address] [address] Social History Tobacco Use Types Packs/Day Years Used Date Smoking Tobacco: Never Assessed Education Answer Date Recorded Are you interested [...] Orientation Straight 07/11/2023 11 :13 AM EST documented as of this encounter Functional Status * Calculated C-SSRS Risk Score (Lifetime/Recent) Answer Date of Assessment Author No Risk Indicated 01/12/2025 1:34 AM Harjinder Ingram RN * [place] Suicide Severity Rating Scale (Screener/Recent Self-Report) Question Answer Date of Assessment Author 1. Wish to be (Past 1 Month) No 01/12/2025 1:34 AM Lavon Ingram RN 2. Non-Specific Active Suicidal Thoughts (Past 1 Month) No 01/12/2025 1:34 AM Lavon Ingram RN 6. Suicidal Behavior (Lifetime) No 01/12/2025 1:34 AM Lavon Ingram RN documented as of this encounter Plan of Treatment Not on file documented as of this encounter Visit Diagnoses Not on filedocumented in this encounter Care Teams Java Sybase Developer Relationship Specialty Start Date End Date Bhakti Reyes MD [address] [place] [phone] PCP - General Internal Medicine 07/11/23 documented as of this encounter Additional Source Comments The information contained in this document represents components of the legal health record. It is not the complete legal health record.[facility]
--- OUTSIDE RECORDS SUMMARY | 2025-03-07 13:34 | XMS_ITS | Clinical Summary ---
Author Organization [facility] Address [address] [place] [address] Phone Care Team Providers Care Wedding Florist Name Role Phone Bhakti Reyes MD Primary Care Provider [phone] Allergies No known active allergies Medications allopurinol (ZYLOPRIM) 100 MG tablet Take 100 mg by mouth daily. 12/25/2024 Active atorvastatin (LIPITOR) 10 MG tablet Take 10 mg by mouth daily. 12/25/2024 Active dilTIAZem (CARDIZEM CD) 120 MG 24 hr capsule Take 120 mg by mouth daily. 12/25/2024 Active omega 8-hwn-wpt-fish oil (FISH OIL) 1,000 (120-180) mg Cap Take 1 capsule by mouth daily. Active levothyroxine (SYNTHROID, LEVOTHROID) 137 MCG tablet Take 137 mcg by mouth every morning. 12/25/2024 Active metoprolol succinate (TOPROL-XL) 50 MG 24 hr tablet Take 50 mg by mouth daily. 12/25/2024 Active rivaroxaban (XARELTO) 20 mg Tab Take 20 mg by mouth daily. 12/25/2024 Active potassium citrate (UROCIT-K) 10 mEq SR tablet Take 10 mEq by mouth 2 (two) times a day with meals. Active lidocaine 4 % Place 2 patches onto the skin daily. 30 patch 01/14/2025 Active cyclobenzaprine (FLEXERIL) 5 MG tablet Take 1 tablet (5 mg total) by mouth 3 (three) times a day as needed (spasms). 12 tablet 01/14/2025 Active acetaminophen (TYLENOL) 325 mg tablet Take 3 tablets (975 mg total) by mouth every 8 (eight) hours. 01/14/2025 Active Active Problems Problem Noted Date Diagnosed Date [...] - 01/14/2025 4:17 PM EDT Hospital Encounter [facility] [address] [address] Huy Casey DO Miskovsky, Glenn E, MD Wong, Melquiades Escobar MD Discharge Disposition: Home or Self Care 01/11/2025 Procedure Pass [facility], Ct Scan - [address] [address] from Last 3 Months Family History Medical [...] - Risk 60-74 years 1-dose series) 2015 TSH LEVEL 09/11/2024 09/12/2023 INFLUENZA VACCINE (#1) 2025 COVID-19 VACCINE (1 - 2023-2 5 season) 2025 CREATININE LEVEL 01/12/2026 01/12/2025, 01/11/2025 Adult Td,Tdap [...] EDT) SODIUM 140 133 - 146 mmol/L [facility] POTASSIUM 3.8 3.3 - 5.1 mmol/L [facility] CHLORIDE 106 96 - 108 mmol/L [facility] CO2 26 21 - 35 mmol/L [facility] BUN 19 6 - 19 mg/dL [facility] CREATININE 1.10 0.5 - 1.5 mg/dL [facility] GLUCOSE 114(H) 70 - 99 mg/dL [facility] ALBUMIN 3.4(L) 3.9 - 4.8 g/dL [facility] TOTAL PROTEIN 5.8(L) 6.5 - 8.0 g/dL [facility] CALCIUM 8.4 8.4 - 10.3 mg/dL [facility] ALKALINE PHOSPHATASE 75 39 - 117 U/L [facility] TOTAL BILIRUBIN 0.8 0.0 - 1.2 mg/dL [facility] AST 15 0 - 37 U/L [facility] ALT 15 0 - 40 U/L [facility] GLOBULIN 2.4 1 - 4.8 g/dL [facility] EGFR 73 >59 mL/min/1.7 3m2 [facility] Comment:Estimated glomerular filtration rate calculated using the CKD-EPI refit equation. ANION GAP 12 10 - 20 mmol/L [facility] Blood 01/12/2025 6:12 AM EDT 01/12/2025 6:34 AM EDT us Melquiades Solares MD LAB BLOOD ORDERABLES Final Resu lt [address] [address] * (ABNORMAL) CBC and differential (01/12/2025 6:12 AM EDT) Only the most recent of2 resultswithin the time period is included. WBC 5.02 4.00 - 11.00 K/uL [facility] RBC 4.15(L) 4.50 - 5.90 M/uL [facility] HGB 12.7(L) 13.5 - 17.5 g/dL [facility] HCT 38.9(L) 41.0 - 53.0 % [facility] PLT 163 150 - 450 K/uL [facility] MCV 93.7 80.0 - 100.0 fL [facility] MCH 30.6 27.0 - 31.0 pg [facility] MCHC 32.6 32.0 - 36.0 g/dL [facility] RDW 14.6(H) 11.5 - 14.5 % [facility] MPV 9.5 8.4 - 12.0 fL [facility] NRBC 0.00 0.00 /100 WBCs [facility] ABSOLUTE NRBC 0.00 0.00 K/uL [facility] DIFF METHOD Auto [facility] NEUTS 62.9 48.0 - 76.0 % [facility] LYMPHS 20.7 18.0 - 41.0 % [facility] MONOS 11.4(H) 4.0 - 11.0 % [facility] EOS 4.2 0.0 - 5.0 % [facility] BASOS 0.6 0.0 - 1.5 % [facility] Granulocytes, immature (%) 0.2 0.0 - 0.9 % [facility] ABSOLUTE NEUTS 3.16 1.92 - 7.60 K/uL [facility] ABSOLUTE LYMPHS 1.04 0.72 - 4.10 K/uL [facility] ABSOLUTE MONOS 0.57 0.16 - 1.10 K/uL [facility] ABSOLUTE EOS 0.21 0.00 - 0.50 K/uL [facility] ABSOLUTE BASOS 0.03 0.00 - 0.15 K/uL [facility] Granulocytes, immature 0.01 0.00 - 0.09 K/uL [facility] Blood 01/12/2025 6:12 AM EDT 01/12/2025 6:34 AM EDT us Melquiades Solares MD LAB BLOOD ORDERABLES Final Resu lt Performing Organization Address City/State/[facility] Co de Phone Number [address] [address] * CT ABDOMEN/PELVIS WITHOUT CONTRAST (01/11/2025 7:00 [...] clinician's provided indication for this examination in Epic: * Flank pain, kidney stone suspected TECHNIQUE: [...] multilevel degenerative changes Procedure Note Adriel Smyth, [facility] - 01/11/2025 CT ABDOMEN/PELVIS WITHOUT CONTRAST Referring clinician's provided indication for this examination in Epic: *Flank pain, kidney stone suspected TECHNIQUE: Multidetector-row [...] (01/11/2025 5:23 PM EDT) COLOR Yellow Yellow [facility] CLARITY Clear [facility] GLUCOSE Negative Negative [facility] BILI Negative Negative [facility] KETONES Negative Negative [facility] SPECIFIC GRAVITY >1.030 1.005 - 1.030 [facility] BLOOD Negative Negative [facility] PH 6.0 5.0 - 8.0 [facility] Protein-UA Negative Negative [facility] NITRITE Negative Negative [facility] Leukocyte esterase, ur Negative Negative [facility] Urine (Urine) 01/11/2025 5:2 3 PM EDT 01/11/2025 6:34 PM EDT Jl Wade MD URINE ORDERABLES Final Res ult [address] [address] * (ABNORMAL) LFTs (hepatic panel) (01/11/2025 1:49 PM EDT) ALKALINE PHOSPHATASE 85 39 - 117 U/L [facility] TOTAL BILIRUBIN 0.9 0.0 - 1.2 mg/dL [facility] DIRECT BILIRUBIN 0.3(H) 0.0 - 0.2 mg/dL [facility] Bilirubin (Indirect) 0.6 0 - 1.5 mg/dL [facility] AST 12 0 - 37 U/L [facility] ALT 18 0 - 40 U/L [facility] TOTAL PROTEIN 6.9 6.5 - 8.0 g/dL [facility] ALBUMIN 4.1 3.9 - 4.8 g/dL [facility] GLOBULIN 2.8 1 - 4.8 g/dL [facility] A/G Ratio 1.46 1.00 - 4.80 RATIO [facility] Blood 01/11/2025 1:49 PM EDT 01/11/2025 2:06 PM EDT Jl Wade MD LAB BLOOD ORDERABLES Final Result [address] [address] * Lipase (01/11/2025 1:49 PM EDT) LIPASE 41 16 - 63 U/L [facility] Blood 01/11/2025 1:49 PM EDT 01/11/2025 2:06 PM EDT Jl Wade MD LAB BLOOD ORDERABLES Final Result Performing Organization Address City/[facility]/ZIP Co de Phone Number [address] [address] * Basic metabolic panel (01/11/2025 1:49 PM EDT) SODIUM 142 133 - 146 mmol/L [facility] CHLORIDE 107 96 - 108 mmol/L [facility] POTASSIUM 4.3 3.3 - 5.1 mmol/L [facility] CO2 25 21 - 35 mmol/L [facility] BUN 17 6 - 19 mg/dL [facility] CREATININE 0.90 0.5 - 1.5 mg/dL [facility] GLUCOSE 71 70 - 99 mg/dL [facility] CALCIUM 9.3 8.4 - 10.3 mg/dL [facility] EGFR 92 >59 mL/min/1.7 3m2 [facility] Comment:Estimated glomerular filtration rate calculated using the CKD-EPI refit equation. ANION GAP 14 10 - 20 mmol/L [facility] Blood 01/11/2025 1:49 PM EDT 01/11/2025 2:06 PM EDT us Jl Wade MD LAB BLOOD ORDERABLES Final Result [facility] [address] [place] [address] from Last 3 Months Insurance MEDICARE A MEDICARE A Member Subscriber Plan / Payer (Ef fective 2020-Present) Name:Mario Nice Member ID:[id number] Relation to Subscriber:Self Name:Mario Nice Subscriber ID:[id number] Payer ID:[id number] Group ID:Not on file Type:Medicare Address: DebtLESS Community [employer] [address] [facility] MEDICARE A [facility] MEDICARE A [facility] MEDICARE A [facility] FEDERAL MEDICARE A Advance Directives For more information, please contact: [phone] (9AM - 5PM [facility], Friday-Friday) * Full Code (Latest Code Status on File) Date Activated Date Inactivated Comments 01/12/2025 12:29 AM Question Answer Comments Code Status Confirmed With: Patient Code Status Communicated To: Inpatient Attending Care Teams Wedding Florist Relationship Specialty Start Date End Date Bhakti Reyes MD [address] [place] [phone] PCP - General Internal Medicine 07/11/23 Additional Source Comments The information contained in this document represents components of the legal health record. It is not the complete legal health record.[facility]
--- OUTSIDE RECORDS SUMMARY | 2025-03-07 13:34 | XMS_ITS ---
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 Name Role Phone Unavailable Primary Care Physician Unavailab le History Of Present Illness No Data Medications Medication Generic Name RxNorm Strength Strength Unit Route Dose Dose Form Frequency Date Started Date Ended Status Indication Sig betamethaso ne dipropionat e betameth asone dipropio bennett 766910 0.05 % Topica l lotio n 07/19/19 25 suspend ed Appl y Am and PM scal p itch as need ed betamethaso ne dipropionat e betameth asone dipropio bennett 004921 0.05 % Topica l lotio n 02/16/20 25 active Appl y AM and PM scal p and uppe r back itch as need ed betamethaso ne valerate betameth asone valerate 919802 0.1 % Topica l apply thin layer to skin lotio n as needed 07/20/19 25 active Appl y AM and PM scal p for itch ciclopirox ciclopir ox 174422 0.77 % Topica l cream Bid 09/07/19 20 suspend ed Appl y AM and PM to bonifacio a butt ocks for 4 week s ciclopirox ciclopir ox 708764 0.77 % Topica l cream BID 03/23/20 21 suspend ed Appl y AM and PM to tops , side s, gulshan om of feet , betw een toes for 4 week s. clobetasol clobetas ol 044858 0.05 % Topica l cream BID 05/19/20 19 suspend ed ECZEMA APPL Y AM AND PM ECZE MA BACK AND BUTT OCKS FOR UP TO 2 WEEK S WHEN NEED ED fluocinonid e fluocino nide 419094 0.05 % Topica l apply thin layer to skin solut ion as needed 05/18/20 24 active Appl y 5-10 drop s AM and PM scal p and mass age in halobetasol propionate halobeta jaiden propiona te 640773 0.05 % Topica l cream BID 08/31/19 23 suspend ed Appl y AM and PM ecze ma left hand and foot for 2 week s when need ed. Neve r use face groi n or unde rarm s ketoconazol e ketocona zole 786359 2 % Topica l cream 04/04/20 22 suspend ed Tinea Appl y AM and PM to top, side , gulshan om of left foot and betw een toes for 4 week s ketoconazol e ketocona zole 530384 2 % Topica l apply small amoun t to hair shamp oo When Shampooing 12/29/19 24 active Appl y to damp hair , lath er leav e in 5 ana amrik and rins e out. Use when sham pooi ng mupirocin mupiroci n 234830 2 % Topica l ointm ent 03/24/20 24 suspend ed Appl y AM and PM righ t rivka k for 10 days chanel t/sc ab Sernivo betameth asone dipropio bennett 8215334 0.05 % Topica l spray with pump [...] griseofulvi n microsize griseofu lvin microsiz e 546886 500 mg Oral table t QD 10/07/19 21 suspend ed Tinea Take one PO QD with food and milk hydroxyzine HCl hydroxyz ine HCl 582837 10 mg Oral 1 table t QHS [...] DermOtic Oil fluocino lone acetonid e oil 2445567 0.01 % Otic (ear) drops BID 08/22/19 21 suspend ed Eczema Appl y 2-4 drop s righ t ear for 2 week s clobetasol clobetas ol 575588 0.05 % Scalp solut ion 03/23/20 21 [...] Diagnosis Date of Resolution Atopic dermatitis (disorder) 00768961(S NOMED) Diagnosis active 03/04/2025 Atopic dermatitis (disorder) 60648918(S NOMED) Diagnosis active 02/28/2025 Atopic dermatitis (disorder) 65789475(S NOMED) Diagnosis active 02/25/2025 Atopic dermatitis (disorder) 35654589(S NOMED) Diagnosis active 02/22/2025 Atopic dermatitis (disorder) 55554423(S NOMED) Diagnosis active 02/18/2025 Atopic dermatitis (disorder) 76173375(S NOMED) Diagnosis active 02/16/2025 Atopic dermatitis (disorder) 05766606(S NOMED) Diagnosis active 02/15/2025 Atopic dermatitis (disorder) 43769220(S NOMED) Diagnosis active 02/14/2025 Atopic dermatitis (disorder) 05515622(S NOMED) Diagnosis active 02/11/2025 Atopic dermatitis (disorder) 39642767(S NOMED) Diagnosis active 02/02/2025 Atopic dermatitis (disorder) 38675076(S NOMED) Diagnosis active 01/31/2025 Atopic dermatitis (disorder) 18669720(S NOMED) Diagnosis active 01/26/2025 Atopic dermatitis (disorder) 81915005(S NOMED) Diagnosis active 01/21/2025 Atopic dermatitis (disorder) 40495780(S NOMED) Diagnosis active 01/19/2025 Atopic dermatitis (disorder) 33101015(S NOMED) Diagnosis active 01/07/2025 Atopic dermatitis (disorder) 19138089(S NOMED) Diagnosis active 01/05/2025 Atopic dermatitis (disorder) 29805114(S NOMED) Diagnosis active 01/03/2025 Atopic dermatitis (disorder) 01802052(S NOMED) Diagnosis active 12/31/2024 Atopic dermatitis (disorder) 27207341(S NOMED) Diagnosis active 12/29/2024 Atopic dermatitis (disorder) 22118286(S NOMED) Diagnosis active 12/27/2024 Atopic dermatitis (disorder) 66845508(S NOMED) Diagnosis active 12/22/2024 Atopic dermatitis (disorder) 68943201(S NOMED) Diagnosis active 12/17/2024 Atopic dermatitis (disorder) 77744921(S NOMED) Diagnosis active 12/10/2024 Atopic dermatitis (disorder) 93845004(S NOMED) Diagnosis active 12/08/2024 Atopic dermatitis (disorder) 81970578(S NOMED) Diagnosis active 12/03/2024 Atopic dermatitis (disorder) 31442860(S NOMED) Diagnosis active 12/01/2024 Neoplasm of uncertain behavior of skin (disorder) 87654305(S NOMED) Diagnosis active 11/29/2024 Atopic dermatitis (disorder) 81918263(S NOMED) Diagnosis active 11/29/2024 Atopic dermatitis (disorder) 16173661(S NOMED) Diagnosis active 11/29/2024 Atopic dermatitis (disorder) 29012534(S NOMED) Diagnosis active 11/26/2024 Atopic dermatitis (disorder) 71843319(S NOMED) Diagnosis active 11/24/2024 Atopic dermatitis (disorder) 19327252(S NOMED) Diagnosis active 11/19/2024 Atopic dermatitis (disorder) 26936069(S NOMED) Diagnosis active 11/12/2024 Atopic dermatitis (disorder) 12100284(S NOMED) Diagnosis active 11/08/2024 Atopic dermatitis (disorder) 76614596(S NOMED) Diagnosis active 11/05/2024 Atopic dermatitis (disorder) 73037466(S NOMED) Diagnosis active 11/03/2024 Atopic dermatitis (disorder) 83176577(S NOMED) Diagnosis active 10/29/2024 Atopic dermatitis (disorder) 60614692(S NOMED) Diagnosis active 10/27/2024 Atopic dermatitis (disorder) 17648791(S NOMED) Diagnosis active 10/25/2024 Atopic dermatitis (disorder) 29817519(S NOMED) Diagnosis active 10/20/2024 Atopic dermatitis (disorder) 66120656(S NOMED) Diagnosis active 10/13/2024 Atopic dermatitis (disorder) 11930505(S NOMED) Diagnosis active 10/11/2024 Atopic dermatitis (disorder) 36331184(S NOMED) Diagnosis active 10/08/2024 Atopic dermatitis (disorder) 49832865(S NOMED) Diagnosis active 10/01/2024 Atopic dermatitis (disorder) 20760703(S NOMED) Diagnosis active 09/29/2024 Atopic dermatitis (disorder) 13048102(S NOMED) Diagnosis active 09/27/2024 Atopic dermatitis (disorder) 08992809(S NOMED) Diagnosis active 09/24/2024 Atopic dermatitis (disorder) 13257284(S NOMED) Diagnosis active 09/22/2024 Atopic dermatitis (disorder) 03315030(S NOMED) Diagnosis active 09/17/2024 Atopic dermatitis (disorder) 23073227(S NOMED) Diagnosis active 09/15/2024 Atopic dermatitis (disorder) 27454907(S NOMED) Diagnosis active 09/10/2024 Atopic dermatitis (disorder) 50250248(S NOMED) Diagnosis active 09/03/2024 Atopic dermatitis (disorder) 34026617(S NOMED) Diagnosis active 09/01/2024 Atopic dermatitis (disorder) 45150635(S NOMED) Diagnosis active 08/27/2024 Hemangioma of skin and subcutaneous tissue (disorder) 209546400( SNOMED) Diagnosis active 08/25/2024 Seborrheic keratosis (disorder) 627380730( SNOMED) Diagnosis active 08/25/2024 Disorder of pigmentation (disorder) 942359756( SNOMED) Diagnosis active 08/25/2024 Melanocytic nevus of trunk (disorder) 729390198( SNOMED) Diagnosis active 08/25/2024 Atopic dermatitis (disorder) 83560047(S NOMED) Diagnosis active 08/25/2024 Patient encounter status (finding) 881683916( SNOMED) Diagnosis active 08/25/2024 Atopic dermatitis (disorder) 06648247(S NOMED) Diagnosis active 08/25/2024 Atopic dermatitis (disorder) 45377155(S NOMED) Diagnosis active 08/23/2024 Atopic dermatitis (disorder) 07443590(S NOMED) Diagnosis active 08/18/2024 Atopic dermatitis (disorder) 51542777(S NOMED) Diagnosis active 08/11/2024 Atopic dermatitis (disorder) 45201826(S NOMED) Diagnosis active 08/06/2024 Atopic dermatitis (disorder) 81824712(S NOMED) Diagnosis active 08/02/2024 Atopic dermatitis (disorder) 13804864(S NOMED) Diagnosis active 07/30/2024 Atopic dermatitis (disorder) 93650322(S NOMED) Diagnosis active 07/21/2024 Atopic dermatitis (disorder) 85040232(S NOMED) Diagnosis active 07/19/2024 Disorder of pigmentation (disorder) 740723754( SNOMED) Diagnosis active 07/19/2024 Atopic dermatitis (disorder) 54964458(S NOMED) Diagnosis active 07/16/2024 Atopic dermatitis (disorder) 23871492(S NOMED) Diagnosis active 07/14/2024 Atopic dermatitis (disorder) 66643514(S NOMED) Diagnosis active 07/09/2024 Atopic dermatitis (disorder) 56569379(S NOMED) Diagnosis active 07/05/2024 Atopic dermatitis (disorder) 27932863(S NOMED) Diagnosis active 07/02/2024 Atopic dermatitis (disorder) 21599113(S NOMED) Diagnosis active 06/28/2024 Atopic dermatitis (disorder) 12295111(S NOMED) Diagnosis active 06/25/2024 Atopic dermatitis (disorder) 48449945(S NOMED) Diagnosis active 06/18/2024 Atopic dermatitis (disorder) 98936366(S NOMED) Diagnosis active 06/14/2024 Atopic dermatitis (disorder) 90000407(S NOMED) Diagnosis active 06/11/2024 Atopic dermatitis (disorder) 55551199(S NOMED) Diagnosis active 06/02/2024 Atopic dermatitis (disorder) 16034241(S NOMED) Diagnosis active 05/28/2024 Atopic dermatitis (disorder) 06585347(S NOMED) Diagnosis active 05/26/2024 Atopic dermatitis (disorder) 38565149(S NOMED) Diagnosis active 05/24/2024 Atopic dermatitis (disorder) 83304554(S NOMED) Diagnosis active 05/18/2024 Atopic dermatitis (disorder) 57086434(S NOMED) Diagnosis active 04/23/2024 Localized edema (finding) 510498247( SNOMED) Diagnosis active 03/24/2024 Atopic dermatitis (disorder) 07187695(S NOMED) Diagnosis active 01/30/2024 Hemangioma of skin and subcutaneous tissue (disorder) 889033837( SNOMED) Diagnosis active 12/29/2023 Seborrheic keratosis (disorder) 316062470( SNOMED) Diagnosis active 12/29/2023 Disorder of pigmentation (disorder) 496579743( SNOMED) Diagnosis active 12/29/2023 Melanocytic nevus of trunk (disorder) 421284441( SNOMED) Diagnosis active 12/29/2023 Atopic dermatitis (disorder) 99177185(S NOMED) Diagnosis active 12/29/2023 Seborrheic dermatitis (disorder) 96957806(S NOMED) Diagnosis active 12/29/2023 Patient encounter status (finding) 752151471( SNOMED) Diagnosis active 12/29/2023 History of malignant neoplasm of skin (situation) 520429251( SNOMED) Diagnosis active 12/29/2023 Atopic dermatitis (disorder) 05922077(S NOMED) Diagnosis active 12/19/2023 Atopic dermatitis (disorder) 01808265(S NOMED) Diagnosis active 12/12/2023 Atopic dermatitis (disorder) 25873436(S NOMED) Diagnosis active 12/05/2023 Atopic dermatitis (disorder) 74525982(S NOMED) Diagnosis active 11/21/2023 Atopic dermatitis (disorder) 56361262(S NOMED) Diagnosis active 11/14/2023 Atopic dermatitis (disorder) 42254472(S NOMED) Diagnosis active 11/07/2023 Atopic dermatitis (disorder) 65851634(S NOMED) Diagnosis active 10/31/2023 Atopic dermatitis (disorder) 49671320(S NOMED) Diagnosis active 10/24/2023 Atopic dermatitis (disorder) 64529507(S NOMED) Diagnosis active 10/17/2023 Atopic dermatitis (disorder) 64808938(S NOMED) Diagnosis active 10/10/2023 Atopic dermatitis (disorder) 46474706(S NOMED) Diagnosis active 10/03/2023 Atopic dermatitis (disorder) 62686321(S NOMED) Diagnosis active 09/26/2023 Atopic dermatitis (disorder) 16846864(S NOMED) Diagnosis active 09/05/2023 Atopic dermatitis (disorder) 31135594(S NOMED) Diagnosis active 08/29/2023 Atopic dermatitis (disorder) 47201972(S NOMED) Diagnosis active 08/22/2023 Atopic dermatitis (disorder) 44339039(S NOMED) Diagnosis active 08/15/2023 Atopic dermatitis (disorder) 87218569(S NOMED) Diagnosis active 08/08/2023 Atopic dermatitis (disorder) 46543883(S NOMED) Diagnosis active 08/01/2023 Atopic dermatitis (disorder) 68568119(S NOMED) Diagnosis active 07/25/2023 Atopic dermatitis (disorder) 15289859(S NOMED) Diagnosis active 07/18/2023 Atopic dermatitis (disorder) 43285469(S NOMED) Diagnosis active 07/11/2023 Hemangioma of skin and subcutaneous tissue (disorder) 330203756( SNOMED) Diagnosis active 07/07/2023 Seborrheic keratosis (disorder) 718747049( SNOMED) Diagnosis active 07/07/2023 Disorder of pigmentation (disorder) 714778171( SNOMED) Diagnosis active 07/07/2023 Melanocytic nevus of trunk (disorder) 782958191( SNOMED) Diagnosis active 07/07/2023 Atopic dermatitis (disorder) 24864495(S NOMED) Diagnosis active 07/07/2023 Patient encounter status (finding) 450805007( SNOMED) Diagnosis active 07/07/2023 History of malignant neoplasm of skin (situation) 270474375( SNOMED) Diagnosis active 07/07/2023 Atopic dermatitis (disorder) 01093032(S NOMED) Diagnosis active 07/04/2023 Atopic dermatitis (disorder) 09636257(S NOMED) Diagnosis active 06/30/2023 Atopic dermatitis (disorder) 07475985(S NOMED) Diagnosis active 06/27/2023 Atopic dermatitis (disorder) 16076791(S NOMED) Diagnosis active 06/20/2023 Atopic dermatitis (disorder) 27178534(S NOMED) Diagnosis active 06/17/2023 Atopic dermatitis (disorder) 91200867(S NOMED) Diagnosis active 06/13/2023 Atopic dermatitis (disorder) 05359352(S NOMED) Diagnosis active 06/09/2023 Atopic dermatitis (disorder) 76969613(S NOMED) Diagnosis active 06/06/2023 Atopic dermatitis (disorder) 60881983(S NOMED) Diagnosis active 06/02/2023 Atopic dermatitis (disorder) 88417840(S NOMED) Diagnosis active 05/30/2023 Atopic dermatitis (disorder) 66628569(S NOMED) Diagnosis active 05/26/2023 Atopic dermatitis (disorder) 20810825(S NOMED) Diagnosis active 05/23/2023 Atopic dermatitis (disorder) 13047866(S NOMED) Diagnosis active 05/14/2023 Atopic dermatitis (disorder) 40231172(S NOMED) Diagnosis active 05/12/2023 Atopic dermatitis (disorder) 18242060(S NOMED) Diagnosis active 05/09/2023 Atopic dermatitis (disorder) 39958849(S NOMED) Diagnosis active 05/05/2023 Atopic dermatitis (disorder) 50592085(S NOMED) Diagnosis active 05/02/2023 Atopic dermatitis (disorder) 37249683(S NOMED) Diagnosis active 04/28/2023 Atopic dermatitis (disorder) 40381417(S NOMED) Diagnosis active 04/25/2023 Atopic dermatitis (disorder) 49891646(S NOMED) Diagnosis active 04/18/2023 Atopic dermatitis (disorder) 25296161(S NOMED) Diagnosis active 04/14/2023 Atopic dermatitis (disorder) 03121157(S NOMED) Diagnosis active 04/11/2023 Atopic dermatitis (disorder) 08311714(S NOMED) Diagnosis active 04/07/2023 Atopic dermatitis (disorder) 95489879(S NOMED) Diagnosis active 04/04/2023 Atopic dermatitis (disorder) 72332768(S NOMED) Diagnosis active 03/31/2023 Atopic dermatitis (disorder) 15771590(S NOMED) Diagnosis active 03/28/2023 Surgical follow-up (finding) 739913621( SNOMED) Diagnosis active 03/25/2023 Basal cell carcinoma of face (disorder) 125715324( SNOMED) Diagnosis active 03/18/2023 Basal cell carcinoma of face (disorder) 166435999( SNOMED) Diagnosis active 03/05/2023 Neoplasm of uncertain behavior of skin (disorder) 85046647(S NOMED) Diagnosis active 03/05/2023 Atopic dermatitis (disorder) 84654838(S NOMED) Diagnosis active 03/03/2023 Atopic dermatitis (disorder) 11545906(S NOMED) Diagnosis active 02/28/2023 Atopic dermatitis (disorder) 62605153(S NOMED) Diagnosis active 02/20/2023 Atopic dermatitis (disorder) 76026610(S NOMED) Diagnosis active 02/17/2023 Atopic dermatitis (disorder) 39076122(S NOMED) Diagnosis active 02/14/2023 Atopic dermatitis (disorder) 27937645(S NOMED) Diagnosis active 02/10/2023 Atopic dermatitis (disorder) 11232645(S NOMED) Diagnosis active 02/07/2023 Atopic dermatitis (disorder) 75487297(S NOMED) Diagnosis active 02/03/2023 Atopic dermatitis (disorder) 83535743(S NOMED) Diagnosis active 01/31/2023 Atopic dermatitis (disorder) 96953039(S NOMED) Diagnosis active 01/24/2023 Neoplasm of uncertain behavior of skin (disorder) 01756343(S NOMED) Diagnosis active 01/20/2023 Atopic dermatitis (disorder) 33694546(S NOMED) Diagnosis active 01/20/2023 Atopic dermatitis (disorder) 22008632(S NOMED) Diagnosis active 01/17/2023 Atopic dermatitis (disorder) 68904596(S NOMED) Diagnosis active 01/10/2023 Atopic dermatitis (disorder) 02598403(S NOMED) Diagnosis active 01/06/2023 Atopic dermatitis (disorder) 26945221(S NOMED) Diagnosis active 01/03/2023 Atopic dermatitis (disorder) 57516309(S NOMED) Diagnosis active 12/27/2022 Atopic dermatitis (disorder) 70791456(S NOMED) Diagnosis active 12/20/2022 Atopic dermatitis (disorder) 57223819(S NOMED) Diagnosis active 12/16/2022 Atopic dermatitis (disorder) 00912778(S NOMED) Diagnosis active 12/13/2022 Atopic dermatitis (disorder) 10829289(S NOMED) Diagnosis active 12/06/2022 Atopic dermatitis (disorder) 53541772(S NOMED) Diagnosis active 12/02/2022 Atopic dermatitis (disorder) 24504809(S NOMED) Diagnosis active 11/29/2022 Atopic dermatitis (disorder) 16538068(S NOMED) Diagnosis active 11/25/2022 Atopic dermatitis (disorder) 62397097(S NOMED) Diagnosis active 11/19/2022 Atopic dermatitis (disorder) 88871928(S NOMED) Diagnosis active 11/15/2022 Atopic dermatitis (disorder) 91338052(S NOMED) Diagnosis active 11/11/2022 Atopic dermatitis (disorder) 18459955(S NOMED) Diagnosis active 11/08/2022 Atopic dermatitis (disorder) 27206459(S NOMED) Diagnosis active 11/04/2022 Atopic dermatitis (disorder) 34796354(S NOMED) Diagnosis active 11/01/2022 Atopic dermatitis (disorder) 25444641(S NOMED) Diagnosis active 10/28/2022 Atopic dermatitis (disorder) 51990991(S NOMED) Diagnosis active 10/25/2022 Neoplasm of uncertain behavior of skin (disorder) 85710990(S NOMED) Diagnosis active 10/21/2022 Atopic dermatitis (disorder) 88966188(S NOMED) Diagnosis active 10/18/2022 Atopic dermatitis (disorder) 63112377(S NOMED) Diagnosis active 10/18/2022 Atopic dermatitis (disorder) 53073008(S NOMED) Diagnosis active 09/27/2022 Atopic dermatitis (disorder) 70361559(S NOMED) Diagnosis active 09/23/2022 Atopic dermatitis (disorder) 49792296(S NOMED) Diagnosis active 09/20/2022 Atopic dermatitis (disorder) 52907095(S NOMED) Diagnosis active 09/16/2022 Atopic dermatitis (disorder) 81360729(S NOMED) Diagnosis active 09/13/2022 Atopic dermatitis (disorder) 14091194(S NOMED) Diagnosis active 09/09/2022 Atopic dermatitis (disorder) 64337970(S NOMED) Diagnosis active 09/06/2022 Atopic dermatitis (disorder) 25648539(S NOMED) Diagnosis active 09/02/2022 Atopic dermatitis (disorder) 59472647(S NOMED) Diagnosis active 08/30/2022 Atopic dermatitis (disorder) 43317919(S NOMED) Diagnosis active 08/30/2022 Atopic dermatitis (disorder) 10418900(S NOMED) Diagnosis active 08/19/2022 Atopic dermatitis (disorder) 76289044(S NOMED) Diagnosis active 08/16/2022 Atopic dermatitis (disorder) 57748859(S NOMED) Diagnosis active 08/13/2022 Atopic dermatitis (disorder) 15638882(S NOMED) Diagnosis active 08/09/2022 Atopic dermatitis (disorder) 09899364(S NOMED) Diagnosis active 08/05/2022 Tinea pedis (disorder) 4941867(SN OMED) Diagnosis active 08/05/2022 Atopic dermatitis (disorder) 82428860(S NOMED) Diagnosis active 08/02/2022 Atopic dermatitis (disorder) 92685488(S NOMED) Diagnosis active 07/26/2022 Atopic dermatitis (disorder) 31115806(S NOMED) Diagnosis active 07/19/2022 Atopic dermatitis (disorder) 50208518(S NOMED) Diagnosis active 07/12/2022 Atopic dermatitis (disorder) 63666341(S NOMED) Diagnosis active 07/05/2022 Atopic dermatitis (disorder) 54925010(S NOMED) Diagnosis active 06/28/2022 Atopic dermatitis (disorder) 39400518(S NOMED) Diagnosis active 06/21/2022 Atopic dermatitis (disorder) 56400789(S NOMED) Diagnosis active 06/14/2022 Atopic dermatitis (disorder) 99227631(S NOMED) Diagnosis active 06/07/2022 Atopic dermatitis (disorder) 01913132(S NOMED) Diagnosis active 05/31/2022 Atopic dermatitis (disorder) 15954643(S NOMED) Diagnosis active 05/03/2022 Atopic dermatitis (disorder) 57088106(S NOMED) Diagnosis active 04/26/2022 Atopic dermatitis (disorder) 80186769(S NOMED) Diagnosis active 04/19/2022 Atopic dermatitis (disorder) 83108734(S NOMED) Diagnosis active 04/12/2022 Atopic dermatitis (disorder) 39133805(S NOMED) Diagnosis active 04/05/2022 Atopic dermatitis (disorder) 19720711(S NOMED) Diagnosis active 04/03/2022 Tinea pedis (disorder) 0515731(SN OMED) Diagnosis active 04/03/2022 Atopic dermatitis (disorder) 98539259(S NOMED) Diagnosis active 03/29/2022 Atopic dermatitis (disorder) 21727885(S NOMED) Diagnosis active 03/22/2022 Atopic dermatitis (disorder) 45761349(S NOMED) Diagnosis active 03/15/2022 Atopic dermatitis (disorder) 59015729(S NOMED) Diagnosis active 2022 Atopic dermatitis (disorder) 56438553(S NOMED) Diagnosis active 03/01/2022 Atopic dermatitis (disorder) 82324395(S NOMED) Diagnosis active 02/22/2022 Atopic dermatitis (disorder) 71862846(S NOMED) Diagnosis active 02/15/2022 Atopic dermatitis (disorder) 46959120(S NOMED) Diagnosis active 02/08/2022 Atopic dermatitis (disorder) 38525873(S NOMED) Diagnosis active 02/01/2022 Atopic dermatitis (disorder) 83969668(S NOMED) Diagnosis active 01/18/2022 Atopic dermatitis (disorder) 08667719(S NOMED) Diagnosis active 01/11/2022 Atopic dermatitis (disorder) 31932323(S NOMED) Diagnosis active 01/04/2022 Atopic dermatitis (disorder) 04043414(S NOMED) Diagnosis active 12/31/2021 Atopic dermatitis (disorder) 91451016(S NOMED) Diagnosis active 12/28/2021 Atopic dermatitis (disorder) 28422197(S NOMED) Diagnosis active 12/21/2021 Atopic dermatitis (disorder) 47241857(S NOMED) Diagnosis active 12/14/2021 Atopic dermatitis (disorder) 81134368(S NOMED) Diagnosis active 12/07/2021 Atopic dermatitis (disorder) 76564686(S NOMED) Diagnosis active 11/30/2021 Atopic dermatitis (disorder) 47954847(S NOMED) Diagnosis active 11/23/2021 Atopic dermatitis (disorder) 49612024(S NOMED) Diagnosis active 11/20/2021 Atopic dermatitis (disorder) 20496397(S NOMED) Diagnosis active 10/31/2021 Atopic dermatitis (disorder) 54490981(S NOMED) Diagnosis active 10/26/2021 Atopic dermatitis (disorder) 10243246(S NOMED) Diagnosis active 10/19/2021 Atopic dermatitis (disorder) 14280445(S NOMED) Diagnosis active 10/12/2021 Atopic dermatitis (disorder) 74336292(S NOMED) Diagnosis active 10/05/2021 Atopic dermatitis (disorder) 13084079(S NOMED) Diagnosis active 09/28/2021 Atopic dermatitis (disorder) 70524157(S NOMED) Diagnosis active 09/21/2021 Psoriasis vulgaris (disorder) 856257757( SNOMED) Diagnosis active 09/14/2021 Atopic dermatitis (disorder) 78483427(S NOMED) Diagnosis active 09/07/2021 Atopic dermatitis (disorder) 75873389(S NOMED) Diagnosis active 08/31/2021 Psoriasis vulgaris (disorder) 864653940( SNOMED) Diagnosis active 08/24/2021 Atopic dermatitis (disorder) 95489671(S NOMED) Diagnosis active 08/24/2021 Psoriasis vulgaris (disorder) 055829177( SNOMED) Diagnosis active 08/10/2021 Psoriasis vulgaris (disorder) 630602507( SNOMED) Diagnosis active 08/03/2021 Atopic dermatitis (disorder) 96362098(S NOMED) Diagnosis active 05/28/2021 Tinea pedis (disorder) 0913859(SN OMED) Diagnosis active 05/28/2021 Itching of skin (finding) 655366078( SNOMED) Diagnosis active 05/28/2021 Atopic dermatitis (disorder) 72457811(S NOMED) Diagnosis active 05/10/2021 Atopic dermatitis (disorder) 22320953(S NOMED) Diagnosis active 04/20/2021 Atopic dermatitis (disorder) 32092437(S NOMED) Diagnosis active 04/06/2021 Atopic dermatitis (disorder) 53042542(S NOMED) Diagnosis active 03/30/2021 Atopic dermatitis (disorder) 75498718(S NOMED) Diagnosis active 03/23/2021 Atopic dermatitis (disorder) 34922431(S NOMED) Diagnosis active 03/23/2021 Tinea pedis (disorder) 1259873(SN OMED) Diagnosis active 03/23/2021 Tinea corporis (disorder) 94851253(S NOMED) Diagnosis active 03/23/2021 Itching of skin (finding) 824351479( SNOMED) Diagnosis active 03/23/2021 Atopic dermatitis (disorder) 01372729(S NOMED) Diagnosis active 03/19/2021 Atopic dermatitis (disorder) 84255498(S NOMED) Diagnosis active 03/16/2021 Atopic dermatitis (disorder) 48565731(S NOMED) Diagnosis active 03/12/2021 Atopic dermatitis (disorder) 71954257(S NOMED) Diagnosis active 03/09/2021 Atopic dermatitis (disorder) 96640185(S NOMED) Diagnosis active 03/05/2021 Atopic dermatitis (disorder) 91333544(S NOMED) Diagnosis active 03/02/2021 Atopic dermatitis (disorder) 19777903(S NOMED) Diagnosis active 02/19/2021 Atopic dermatitis (disorder) 09489389(S NOMED) Diagnosis active 02/16/2021 Itching of skin (finding) 518478150( SNOMED) Diagnosis active 02/02/2021 Atopic dermatitis (disorder) 29869082(S NOMED) Diagnosis active 02/02/2021 Atopic dermatitis (disorder) 56750364(S NOMED) Diagnosis active 01/29/2021 Psoriasis vulgaris (disorder) 749712720( SNOMED) Diagnosis active 01/26/2021 Atopic dermatitis (disorder) 05104210(S NOMED) Diagnosis active 01/22/2021 Atopic dermatitis (disorder) 30956372(S NOMED) Diagnosis active 01/19/2021 Atopic dermatitis (disorder) 04400472(S NOMED) Diagnosis active 01/15/2021 Atopic dermatitis (disorder) 89646601(S NOMED) Diagnosis active 01/12/2021 Atopic dermatitis (disorder) 63020827(S NOMED) Diagnosis active 01/08/2021 Atopic dermatitis (disorder) 33162328(S NOMED) Diagnosis active 01/05/2021 Atopic dermatitis (disorder) 24170848(S NOMED) Diagnosis active 01/01/2021 Atopic dermatitis (disorder) 36945160(S NOMED) Diagnosis active 12/29/2020 Atopic dermatitis (disorder) 03796858(S NOMED) Diagnosis active 12/22/2020 Atopic dermatitis (disorder) 14477486(S NOMED) Diagnosis active 12/18/2020 Psoriasis vulgaris (disorder) 583522312( SNOMED) Diagnosis active 12/15/2020 Atopic dermatitis (disorder) 34220710(S NOMED) Diagnosis active 12/11/2020 Atopic dermatitis (disorder) 49814630(S NOMED) Diagnosis active 12/08/2020 Atopic dermatitis (disorder) 58775044(S NOMED) Diagnosis active 12/08/2020 Tinea pedis (disorder) 4204216(SN OMED) Diagnosis active 12/08/2020 Tinea corporis (disorder) 43191231(S NOMED) Diagnosis active 12/08/2020 Atopic dermatitis (disorder) 43471363(S NOMED) Diagnosis active 12/04/2020 Atopic dermatitis (disorder) 12354366(S NOMED) Diagnosis active 12/01/2020 Atopic dermatitis (disorder) 79538347(S NOMED) Diagnosis active 11/27/2020 Atopic dermatitis (disorder) 47113246(S NOMED) Diagnosis active 11/24/2020 Atopic dermatitis (disorder) 07315611(S NOMED) Diagnosis active 11/22/2020 Atopic dermatitis (disorder) 60312904(S NOMED) Diagnosis active 11/17/2020 Atopic dermatitis (disorder) 46634701(S NOMED) Diagnosis active 11/13/2020 Atopic dermatitis (disorder) 03595187(S NOMED) Diagnosis active 11/10/2020 Atopic dermatitis (disorder) 92044954(S NOMED) Diagnosis active 11/06/2020 Atopic dermatitis (disorder) 77093893(S NOMED) Diagnosis active 11/03/2020 Atopic dermatitis (disorder) 37505864(S NOMED) Diagnosis active 10/30/2020 Atopic dermatitis (disorder) 20505028(S NOMED) Diagnosis active 10/27/2020 Atopic dermatitis (disorder) 00411993(S NOMED) Diagnosis active 10/23/2020 Atopic dermatitis (disorder) 02836231(S NOMED) Diagnosis active 10/20/2020 Atopic dermatitis (disorder) 47151575(S NOMED) Diagnosis active 10/16/2020 Surgical follow-up (finding) 796795825( SNOMED) Diagnosis active 10/09/2020 Tinea pedis (disorder) 8782134(SN OMED) Diagnosis active 10/06/2020 Tinea corporis (disorder) 55185630(S NOMED) Diagnosis active 10/06/2020 Follicular cysts of skin and subcutaneous tissue (disorder) 304026099( SNOMED) Diagnosis active 09/27/2020 Atopic dermatitis (disorder) 55738788(S NOMED) Diagnosis active 09/25/2020 Atopic dermatitis (disorder) 14486261(S NOMED) Diagnosis active 09/18/2020 Psoriasis vulgaris (disorder) 210366829( SNOMED) Diagnosis active 09/15/2020 Atopic dermatitis (disorder) 35921708(S NOMED) Diagnosis active 09/11/2020 Psoriasis vulgaris (disorder) 357305172( SNOMED) Diagnosis active 09/08/2020 Intrinsic (allergic) eczema [...] Diagnosis active 04/23/2019 Disorder of skin (disorder) 77077968(S NOMED) Diagnosis active 12/29/2018 Atopic dermatitis (disorder) 71453284(S NOMED) Diagnosis active 12/01/2018 Atopic dermatitis (disorder) 41978008(S NOMED) Diagnosis active 11/03/2018 Atopic dermatitis (disorder) 17211481(S NOMED) Diagnosis active 01/26/2018 Itching of skin (finding) 556050730( SNOMED) Diagnosis active 10/10/2017 Melanocytic nevus of trunk (disorder) 686775777( SNOMED) Diagnosis active 08/22/2017 Benign neoplasm of skin of upper limb (disorder) 14155882(S NOMED) Diagnosis active 08/08/2017 Itching of skin (finding) 543641897( SNOMED) Diagnosis active 07/29/2017 Benign neoplasm of skin of trunk (disorder) 97693373(S NOMED) Diagnosis active 07/18/2017 Atopic dermatitis (disorder) 18416120(S NOMED) Diagnosis active 06/18/2017 Atopic dermatitis (disorder) 68447150(S NOMED) Diagnosis active 06/18/2017 Atopic dermatitis (disorder) 17932685(S NOMED) Diagnosis active 05/09/2017 Tinea corporis (disorder) 31142627(S NOMED) Diagnosis active 02/07/2017 Atopic dermatitis (disorder) 90831932(S NOMED) Diagnosis active 12/10/2016 Atopic dermatitis (disorder) 84514941(S NOMED) Diagnosis active 11/25/2016 Itching of skin (finding) 512581648( SNOMED) Diagnosis active 10/23/2016 Tinea corporis (disorder) 15505142(S NOMED) Diagnosis active 09/09/2016 Tinea corporis (disorder) 66449112(S NOMED) Diagnosis active 07/29/2016 Tinea corporis (disorder) 77535903(S NOMED) Diagnosis active 07/03/2016 Atopic dermatitis (disorder) 05908862(S NOMED) Diagnosis active 05/20/2016 Atopic dermatitis (disorder) 42801045(S NOMED) Diagnosis active 02/28/2016 Herpes labialis (disorder) 1718522(SN OMED) Diagnosis active 12/20/2015 Atopic dermatitis (disorder) 31344037(S NOMED) Diagnosis active 09/07/2015 Atopic dermatitis (disorder) 57460041(S NOMED) Diagnosis active 05/31/2015 Benign neoplasm of skin of trunk (disorder) 07074443(S NOMED) Diagnosis active 05/30/2015 Contact dermatitis caused by solar radiation (disorder) 93692799(S NOMED) Diagnosis active 01/04/2015 Dermatophytosis of the body (disorder) 911619741( SNOMED) Diagnosis active 10/25/2014 Neoplasm of uncertain behavior of skin (disorder) 23107494(S NOMED) Diagnosis active 05/31/2014 History of clinical finding in subject (situation) 552330664( SNOMED) Problem active Arthritis (disorder) 9212182(SN OMED) Problem active Increased blood pressure (finding) 07669419(S NOMED) Problem active Hypercholesterolemia (disorder) 34332288(S NOMED) Problem active Atrial fibrillation (disorder) 24604131(S NOMED) Problem active Secondary restless legs syndrome (disorder) 861208329( SNOMED) Problem active Eczema (disorder) 66231488(S NOMED) Problem active Psoriasis (disorder) 6103098(SN OMED) Problem active Basal cell carcinoma of skin (disorder) 972403432( SNOMED) Problem active Diverticulitis (morphologic abnormality) 62557404(S NOMED) Problem active Hypothyroidism (disorder) 57232105(S NOMED) Problem active Malignant tumor of thyroid gland (disorder) 685366975( SNOMED) Problem active Results No data Encounters Service provided at [facility], [address] [place] [address], [address], [place], [place] [id number]. Office phonenumber is [phone]. Office fax number is [phone]. Encounter Diagnosis Location Date / Time Type Eczema (L20.89) [facility] 03/04/2025 15:00:00 UTC N I Reason For Referral No [...] Skin Type - II; Treatment Number - 314; Render Post-care in the Note - no; Total Body Energy - 880 mj hold dose; Comments on Previous Treatment - Room 3, no fans.; Protocol - Photochemotherapy: Mineral Oil and NBUVB; Total Body Time - 4:00 min; Total Treatment Time -4:00 min; Location (Body Touches will Override) - full body. Plan of Care Code Detail Instructions 984224 ketoconazole 2 % shampoo Apply t o damp hair, lather leave in 5 minutes and rinse out. Use when shampooing 363442 betamethasone diprop ionate 0.05 % lotion Apply AM and PM scalp and upper back itch as needed 072591 ketoconazole 2 % shampoo Apply t o damp hair, lather leave in 5 minutes and rinse out. Use when shampooing 441985 ketoconazole 2 % shampoo Apply t o damp hair, lather leave in 5 minutes and rinse out. Use when shampooing 936516 betamethasone valerate 0.1 % lot ion Apply AM and PM scalp for itch 305396 betamethasone diprop ionate 0.05 % lotion Apply Am and PM scalp itch as needed 047815 hydroxyzine HCl 10 mg tablet Duong e one pill po at supper and if needed bedtime prn itch. Do not drive or operate heavy machinery 972570 fluocinonide 0.05 % topical solu tion Apply 5-10 drops AM and PM scalp and massage in 315864 mupirocin 2 % topical ointment A pply AM and PM right cheek for 10 days crust/scab 460809 ketoconazole 2 % shampoo Apply t o damp hair, lather leave in 5 minutes and rinse out. Use when shampooing 441885 clobetasol 0.05 % topical cream Apply AM and PM rash buttocks and left knee 116693 clobetasol 0.05 % scalp solution Apply 5-10 drops to scalp itchy area and massage in 651579 clobetasol 0.05 % scalp solution Apply 5-10 drops to scalp itchy area and massage in 571340 halobetasol propiona te 0.05 % topical cream Apply AM and PM eczema left hand and foot for 2 weeks when needed. Never use face groin or underarms 647625 ciclopirox 0.77 % topical cream Apply AM and PM to tops sides bottoms of left foot and between toes for 4 weeks 867215 clobetasol 0.05 % topical cream Apply AM and PM rash buttocks and left knee 707436 ketoconazole 2 % topical cream A pply AM and PM to top, side, bottom of left foot and between toes for 4 weeks 488316 ciclopirox 0.77 % topical cream Apply AM and PM to tops sides bottoms of left foot and between toes for 4 weeks 680415 ciclopirox 0.77 % topical cream Apply AM and PM to tops sides bottoms of left foot and between toes for 4 weeks 568489 clobetasol 0.05 % topical cream Apply AM and PM rash buttocks and left knee 083784 clobetasol 0.05 % topical cream Apply AM and PM rash buttocks and left knee 1367151 Sernivo 0.05 % topical spray wit h pump Apply AM and PM scalp and massage in 469508 clobetasol 0.05 % scalp solution Apply 5-10 drops to scalp itchy area and massage in 838843 ciclopirox 0.77 % topical cream Apply AM and PM to tops, sides, bottom of feet, between toes for 4 weeks. 184367 griseofulvin microsize 500 mg ta blet Take one PO QD with food and milk 810793 griseofulvin microsize 500 mg ta blet Take one PO QD with food and milk 444143 mupirocin 2 % topical ointment A pply to surgical site on forehead twice a day x 7-14 days. 013302 mupirocin 2 % topical ointment A pply to surgical site on forehead twice a day x 7-14 days. 7693087 DermOtic Oil 0.01 % ear drops Ap ply 2-4 drops right ear for 2 weeks 2841191 DermOtic Oil 0.01 % ear drops Ap ply 2-4 drops right ear for 2 weeks 3528128 DermOtic Oil 0.01 % ear drops Ap ply 2-4 drops right ear for 2 weeks 038488 clobetasol 0.05 % topical cream Apply AM and PM rash buttocks and left knee 506428 clobetasol 0.05 % topical cream APPLY AM AND PM ECZEMA LOWER LEGS FOR UP TO 2 WEEKS WHEN NEEDED 844747 terbinafine HCl 250 mg tablet Ta ke one po qd 802799 terbinafine HCl 250 mg tablet Ta ke one po QD. Do not drink alcohol with this medication 127809 terbinafine HCl 250 mg tablet Ta ke one po QD. Do not drink alcohol with this medication 615875 ciclopirox 0.77 % topical cream Apply AM and PM left leg and buttocks for 4 weeks 181619 terbinafine HCl 250 mg tablet Ta ke one po QD. Do not drink alcohol with this medication 879973 ciclopirox 0.77 % topical cream Apply AM and PM tinea left lower leg for 4 weeks until clear 802319 clobetasol 0.05 % topical cream APPLY AM AND PM ECZEMA LOWER LEGS FOR UP TO 2 WEEKS WHEN NEEDED 457935 terbinafine HCl 250 mg tablet Ta ke one tablet by mouth once daily. 912404 griseofulvin microsize 500 mg ta blet Take one pill by mouth daily with food and milk. 977582 griseofulvin microsize 500 mg ta blet Take one PO QD with food and milk 880859 ciclopirox 0.77 % topical cream Apply AM and PM to tinea buttocks for 4 weeks 656627 griseofulvin microsize 500 mg ta blet Take one po qd with food and milk 863036 clobetasol 0.05 % topical cream APPLY AM AND PM ECZEMA BUTTOCKS FOR UP TO 2 WEEKS WHEN NEEDED 163162 clobetasol 0.05 % topical cream APPLY AM AND PM ECZEMA BACK AND BUTTOCKS FOR UP TO 2 WEEKS WHEN NEEDED 491220 betamethasone diprop ionate 0.05 % lotion Apply 5-10 drops once to twice daily to scalp massage into scalp 396032 clobetasol 0.05 % topical cream Apply am and pm eczema back buttocks 321390 betamethasone diprop ionate 0.05 % topical cream Apply am and pm dry patches upper back and buttocks Instructions No Data Social History Code Activity Start Date End Date [id number] (SNOMED) Never smoker Sex male Sexual orientation Unspecified Gender identity Unspecified Vital Signs No data
== END 2025-03-07 11:26 | disposition home or self-care (01) ==
LOC: HO.PMC 10:34
PROVIDERS: PCP Internal Medicine; Visit Provider Internal Medicine
DX: M43.06 Spondylolysis, lumbar region (principal); M41.9 Scoliosis, unspecified
CPT/HCPCS: 99204

== ENCOUNTER 2025-03-21 19:48 | Emergency (ER) | payer BC, SELFPAY ==
--- NOTE | 2025-03-21 | ECG_ITS ---
Test Reason : CP Blood Pressure : */* mmHG Vent. Rate : 70 BPM Atrial Rate : 70 BPM P-R Int : 160 ms QRS Dur : 108 ms QT Int : 418 ms P-R-T Axes : 37 -4 72 degrees QTcB Int : 451 ms Normal sinus rhythm Incomplete left bundle branch block Borderline ECG When compared with ECG of 21-Jan-2023 11:10, Sinus rhythm has replaced Atrial fibrillation Vent. rate has decreased by 52 bpm Incomplete left bundle branch block is now Present T wave inversion no longer evident in Inferior leads T wave inversion no longer evident in Anterior leads Referred By: Generic ED Physician Electronically Signed By: YULIET GRAY
--- NOTE | ~2025-03-21 | CT_ITS ---
CLINICAL HISTORY: trauma CT chest with contrast Comparison: CR/SR - XR CHEST 2 VIEWS - 01/21/23 04:26 EDT Findings: The heart is normal size. The visualized thyroid and mediastinum are unremarkable. No consolidation or effusion. Bibasilar atelectatic/dependent changes. The bones are intact. Moderate to severe levoscoliosis of the midthoracic spine. IMPRESSION: 1. No acute disease within the chest. This document has been electronically signed by: Domonique Vergara MD on 03/21/2025 22:17:39
--- NOTE | ~2025-03-21 | CT_ITS ---
CLINICAL HISTORY: trauma, LUQ pain CT abdomen and pelvis with contrast Comparison: CT/REG/NE/SR - CT ABDOMEN PELVIS WITHOUT IV CONTRAST - 12/28/23 05:20 EDT Findings: The lung bases are clear. Multiple large hepatic cysts, unchanged in the interval. Gallbladder is mostly contracted. Few nonobstructing stones are noted within the left kidney measuring up to 4 mm in size. No hydronephrosis bilaterally remainder of the solid organs are within normal limits. No bowel obstruction, pneumoperitoneum, or pneumatosis. Pelvic contents unremarkable. Appendix is not definitely visualized, correlate history of appendectomy. Moderate to severe multilevel spondylosis of the lumbar spine with moderate dextroscoliosis. IMPRESSION: No acute findings. Other chronic findings as detailed in the findings. This document has been electronically signed by: Domonique Vergara MD on 03/21/2025 22:32:43
--- NOTE | ~2025-03-21 | CT_ITS ---
CLINICAL HISTORY: dizziness, gait instability CT Head without contrast. CT angiography head and neck with contrast. 3D Postprocessing. Comparison: None provided Findings: HEAD CT: No intra-axial mass, midline shift, hydrocephalus, or acute hemorrhage. No significant atrophy-like change or white matter disease. There is no sinus or mastoid fluid. The orbits are unremarkable. There is no acute fracture. HEAD AND NECK CTA: Aortic arch and cervical great vessels are patent. Intracranial arteries are patent. No aneurysm, dissection, or occlusion. No abnormal intracranial enhancement. The visualized thyroid gland is unremarkable. No cervical mass or fluid collection. Lung apices clear. No acute fracture. IMPRESSION: 1. Unremarkable head CT. 2. Patent head and neck CTA. This document has been electronically signed by: Domonique Vergara MD on 03/21/2025 22:41:03
[2025-03-21 20:00] VITALS: BP 180/92; PULSE 82; O2SAT 98
[2025-03-21 20:02] VITALS: BP 145/65; PULSE 68; RESP 18; TEMP 36.7; O2SAT 94; BMI 32.5
[2025-03-21 20:23] LABS: MANUAL DIFF FLAG NO
[2025-03-21 20:39] LABS: Alanine Aminotransferase 18 U/L (0-40); Albumin Level 3.7 g/dL (3.5-5.0); Alkaline Phosphatase 76 U/L (39-117); Anion Gap 10 (12-20); Aspartate Amino Transferase 17 U/L (5-37); Blood Urea Nitrogen 13 mg/dL (9-16); Calcium 8.5 mg/dL (8.4-10.2); Carbon Dioxide 27 mmol/L (22-29); Chloride 110 mmol/L (96-108); Creatinine Clr Calc Pharmacy 93.2; Estimated Glomerular Filt Rate > 60; Potassium 3.6 mmol/L (3.3-5.1); Sodium 143 mmol/L (135-145); Total Protein 6.1 g/dL (6.5-8.0)
[2025-03-21 20:46] LABS: Troponin-I High Sensitivity < 2.7 ng/L (<3.5-35.0)
[2025-03-21 20:49] LABS: Hematocrit 39.3 % (42.0-52.0); Hemoglobin 13.1 g/dl (14.0-18.0); Imm Gran Abs Auto 0.02 X10*3/uL (0.00-0.03); Imm Gran Pct Auto 0.3 % (0.0-0.4); Lymphocytes Absolute Auto 0.9 X10*3/uL (1.2-4.9); Mean Corpuscular HGB Conc 33.3 g/dl (31.0-36.0); Mean Corpuscular Hemoglobin 30.5 pg (27.0-33.0); Mean Corpuscular Volume 91.6 fL (80.0-98.0); NRBC Abs Auto 0.000 X10*3/uL (0.0-0.012); NRBC Pct Auto 0.0 /100WBC (0.0-0.2); Platelet Count 181 X10*3/uL (160-400); Red Blood Count 4.29 X10*6/uL (4.60-5.80); White Blood Count 6.0 X10*3/uL (4.8-10.8)
[2025-03-21 20:58] LABS: Magnesium 2.0 mg/dL (1.6-2.6)
--- NOTE | 2025-03-21 21:08 | PC.NURSE ---
provider into assess pt, Iv placed, pt taken CT-A head, chest and abdomen, will medicated per mar.
[2025-03-21] MEDS: diazePAM 10 MG/2 ML CARTRIDGE 5 MG IVPUSH (21:14)
[2025-03-21] MEDS: iohexoL 350 MG/ML 100 ML INFUS..BTL IV (21:19)
--- OUTSIDE RECORDS SUMMARY | 2025-03-21 21:42 | XMS_ITS | Clinical Summary ---
Author Organization [facility] Address [address] [place] [address] Phone Care Team Providers Care Student Driving Instructor Name Role Phone Bhakti Reyes MD Primary Care Provider [phone] Allergies No known active allergies Medications allopurinol (ZYLOPRIM) 100 MG tablet Take 100 mg by mouth daily. 12/25/2024 Active atorvastatin (LIPITOR) 10 MG tablet Take 10 mg by mouth daily. 12/25/2024 Active dilTIAZem (CARDIZEM CD) 120 MG 24 hr capsule Take 120 mg by mouth daily. 12/25/2024 Active omega 0-qqd-txu-fish oil (FISH OIL) 1,000 (120-180) mg Cap [...] 4:17 PM EDT Hospital Encounter [facility] [address] [address] Huy Casey DO Miskovsky, Glenn E, MD Wong, Melquiades Escobar MD Discharge Disposition: Home or Self Care 01/11/2025 Procedure Pass [facility], Ct Scan - [address] [address] from Last 3 Months Family History Medical [...] 09/12/2023 INFLUENZA VACCINE (#1) 2025 COVID-19 VACCINE ( - 2023-2 5 season) 2025 CREATININE LEVEL 01/12/2026 01/12/2025, 01/11/2025 Adult Td,Tdap Booster 05/22/2027 05/22/2017 ZOSTER VACCINES Completed 06/23/2023, 08/09/2021 ABDOMINAL AORTIC [...] EDT) SODIUM 140 133 - 146 mmol/L [facility] POTASSIUM 3.8 3.3 - 5.1 mmol/L [facility] CHLORIDE 106 96 - 108 mmol/L [facility] CO2 26 21 - 35 mmol/L [facility] BUN 19 6 - 19 mg/dL [facility] CREATININE 1.10 0.5 - 1.5 mg/dL [facility] GLUCOSE 114(H) 70 - 99 mg/dL [facility] ALBUMIN 3.4(L) 3.9 - 4.8 g/dL [facility] TOTAL PROTEIN 5.8(L) 6.5 - 8.0 g/dL [facility] CALCIUM 8.4 8.4 - 10.3 mg/dL [facility] ALKALINE PHOSPHATASE 75 39 - 117 U/L [facility] TOTAL BILIRUBIN 0.8 0.0 - 1.2 mg/dL [facility] AST 15 0 - 37 U/L [facility] ALT 15 0 - 40 U/L [facility] GLOBULIN 2.4 1 - 4.8 g/dL [facility] EGFR 73 >59 mL/min/1.[address] [facility] Comment:Estimated glomerular filtration rate calculated using the CKD-EPI refit equation. ANION GAP 12 10 - 20 mmol/L [facility] Blood 01/12/2025 6:12 AM EDT 01/12/2025 6:34 AM EDT us Melquiades Solares MD LAB BLOOD ORDERABLES Final Resu lt [facility] [address] [place] [address] * (ABNORMAL) CBC and differential (01/12/2025 6:12 AM EDT) Only the most recent of2 resultswithin the time period is included. WBC 5.02 4.00 - 11.00 K/uL [facility] RBC 4.15(L) 4.50 - 5.90 M/uL [facility] HGB 12.7(L) 13.5 - 17.5 g/dL [facility] HCT 38.9(L) 41.0 - 53.0 % [facility] PLT 163 150 - 450 K/uL [facility] MCV 93.7 80.0 - 100.0 [facility] MCH 30.6 27.0 - 31.[address] [facility] MCHC 32.6 32.0 - 36.0 g/dL [facility] RDW 14.6(H) 11.5 - 14.5 % [facility] MPV 9.5 8.4 - 12.0 [facility] NRBC 0.00 0.00 /[address] [facility] ABSOLUTE NRBC 0.00 0.00 K/uL [facility] DIFF METHOD Auto [facility] NEUTS 62.9 48.0 - 76.0 % [facility] LYMPHS 20.7 18.0 - 41.0 % [facility] MONOS 11.4(H) 4.0 - 11.0 % [facility] EOS 4.2 0.0 - 5.0 % [facility] BASOS 0.6 0.0 - 1.5 % [facility] Granulocytes, immature (%) 0.2 0.0 - 0.9 % [facility] ABSOLUTE NEUTS 3.16 1.92 - 7.60 K/uL [facility] ABSOLUTE LYMPHS 1.04 0.72 - 4.10 K/uL [facility] ABSOLUTE MONOS 0.57 0.16 - 1.10 K/uL [facility] ABSOLUTE EOS 0.21 0.00 - 0.50 K/uL [facility] ABSOLUTE BASOS 0.03 0.00 - 0.15 K/uL [facility] Granulocytes, immature 0.01 0.00 - 0.09 K/uL [facility] Blood 01/12/2025 6:12 AM EDT 01/12/2025 6:34 AM EDT us Melquiades Solares MD LAB BLOOD ORDERABLES Final Resu lt Performing Organization Address City/State/[facility] Co de Phone Number [address] [address] * CT ABDOMEN/PELVIS WITHOUT CONTRAST (01/11/2025 7:00 [...] (01/11/2025 5:23 PM EDT) COLOR Yellow Yellow [facility] CLARITY Clear [facility] GLUCOSE Negative Negative [facility] BILI Negative Negative [facility] KETONES Negative Negative [facility] SPECIFIC GRAVITY >1.030 1.005 - 1.[address] [facility] BLOOD Negative Negative [facility] PH 6.0 5.0 - 8.[address] [facility] Protein-UA Negative Negative [facility] NITRITE Negative Negative [facility] Leukocyte esterase, ur Negative Negative [facility] Urine (Urine) 01/11/2025 5:2 3 PM EDT 01/11/2025 6:34 PM EDT Jl Wade MD URINE ORDERABLES Final Res ult [address] [address] * (ABNORMAL) LFTs (hepatic panel) (01/11/2025 1:49 PM EDT) ALKALINE PHOSPHATASE 85 39 - 117 U/L [facility] TOTAL BILIRUBIN 0.9 0.0 - 1.2 mg/dL [facility] DIRECT BILIRUBIN 0.3(H) 0.0 - 0.2 mg/dL [facility] Bilirubin (Indirect) 0.6 0 - 1.5 mg/dL [facility] AST 12 0 - 37 U/L [facility] ALT 18 0 - 40 U/L [facility] TOTAL PROTEIN 6.9 6.5 - 8.0 g/dL [facility] ALBUMIN 4.1 3.9 - 4.8 g/dL [facility] GLOBULIN 2.8 1 - 4.8 g/dL [facility] A/G Ratio 1.46 1.00 - 4.[address] [facility] Blood 01/11/2025 1:49 PM EDT 01/11/2025 2:06 PM EDT Jl Wade MD LAB BLOOD ORDERABLES Final Result [address] [address] * Lipase (01/11/2025 1:49 PM EDT) LIPASE 41 16 - 63 U/L [facility] Blood 01/11/2025 1:49 PM EDT 01/11/2025 2:06 PM EDT Jl Wade MD LAB BLOOD ORDERABLES Final Result Performing Organization Address City/[facility]/ZIP Co de Phone Number [address] [address] * Basic metabolic panel (01/11/2025 1:49 PM EDT) SODIUM 142 133 - 146 mmol/L [facility] CHLORIDE 107 96 - 108 mmol/L [facility] POTASSIUM 4.3 3.3 - 5.1 mmol/L [facility] CO2 25 21 - 35 mmol/L [facility] BUN 17 6 - 19 mg/dL [facility] CREATININE 0.90 0.5 - 1.5 mg/dL [facility] GLUCOSE 71 70 - 99 mg/dL [facility] CALCIUM 9.3 8.4 - 10.3 mg/dL [facility] EGFR 92 >59 mL/min/1.[address] [facility] Comment:Estimated glomerular filtration rate calculated using the CKD-EPI refit equation. ANION GAP 14 10 - 20 mmol/L [facility] Blood 01/11/2025 1:49 PM EDT 01/11/2025 2:06 PM EDT Jl Wade MD LAB BLOOD ORDERABLES Final Result [facility] [address] [place] [address] from Last 3 Months Insurance MEDICARE A MEDICARE A MEDICARE [place] [address] [place] [address] MEDICARE A [facility] FEDERAL MEDICARE A Advance Directives For more information, please contact: [phone] (9AM - 5PM [facility], Friday-Friday) * Full Code (Latest Code Status on File) Date Activated Date Inactivated Comments 01/12/2025 12:29 AM Question Answer Comments Code Status Confirmed With: Patient Code Status Communicated To: Inpatient Attending Care Teams Student Driving Instructor Relationship Specialty Start Date End Date Bhakti Reyes MD [address] [place] [address] Drive [address] [place] [address] PCP - General Internal Medicine 07/11/23 Additional Source Comments The information contained in this document represents components of the legal health record. It is not the complete legal health record.[facility]
--- OUTSIDE RECORDS SUMMARY | 2025-03-21 21:42 | XMS_ITS | Data Portability ---
Author Organization [place] - [facility], [facility] Address [address] [place] [address] Care Team Providers Care Wool Fleece Sorter Name Role Phone DEPARTMENT [facility] Primary Care Provi sia Assessment No assessment recorded. Plan of Treatment Reminders Order Date Submit Date Provider Last Modified By Organization Details Last Modified Time Details Appointments NEW PATIENT 15 2024 09:45A M Danette Martinez PA-C Not available Not available Not available Lab None recorded . Referral None recorded . Procedures None recorded . Surgeries None recorded . Imaging None recorded . Medication Orders None recorded . Patient TargetsNo targets recorded. Patient Instructions Encounter Date Encounter Id Patient Instructions Last Modified By Organization Details Last Modified Time 03/15/2024 [id number] orthopedic surgery* - Reason for Order: Massage [...] active Not Available Not Available Not Available mupirocin 2 % topical ointment APPLY TOPICALLY TO THE AFFECTED AREA OF CRUST/SCA B ON RIGHT CHEEK AM AND PM FOR 10 DAYS 03/19 completed Not Available Not Available Not Available ondansetron [...] Updated DateTime 03/15/2024 187.96 cm 32.1 kg/m2 763849.09 g Kimberly Iqbal [place] - [facility] 03/15/2024 12:19:08 Social History None recorded. Functional Status None recorded. Mental Status None recorded. Family History Nothing Reported. Medical History No medical history recorded. Past Encounters Encounter ID Performer Location Encounter Start Date Encounter Closed Date Diagnosis/Indication Diagnosis SNOMED-CT Code Diagnosis ICD10 Code Diagnosis IMO Codes Diagnosis Note [id number] JOÃO Thompson [address] [place] [address] 03/15/2024 11:58:29 04/13/2024 12:39:18 Lumbar radiculopathy 522351883 M54.16 Health Concerns Section Related Observation LastModified by Organization Detai ls LastModified Time None Recorded Concern Status LastModified by Organization Details LastModified Time None Recorded Advance Directives Directive None Recorded Payers Insurance Date Sequence Insurance Name Policy Number Policy Blankenship Covered Member ID Blankenship Member ID Guarantor Name 03/19/2025 [place] - [place] [facility] ([facility] Mario Nice [id number] Mario Nice Notes Date Note Type Note [...] affected side. Strength and sensation intact. Re e xes normal. No ankle clonus. MRI [...] will follow-up if needed in the future. [employer] speech recognition food preservation scientist software was used to create portions of this document. An attempt at proofreading has been made to minimize errors. Please call for corrections. Danette Martinez PA-C [address] [facility], [place], [address], [facility] - [facility] 03/15/2024 14:01:00
--- OUTSIDE RECORDS SUMMARY | 2025-03-21 21:42 | XMS_ITS | Encounter Summary ---
Author Organization [facility] Address [address] [place] [address] Phone Care Team Providers Care Highway Patrol Pilot Name Role Phone Bhakti Reyes MD Primary Care Provider [phone] Encounter Details Date Type Department Care Team (Late st Contact Info) Description 01/11/2025 Procedure Pass [facility], Ct Scan - [address] [address] Social History Tobacco Use Types Packs/Day Years [...] 01/12/2025 1:34 AM Harjinder Ingram RN * [place] Suicide Severity Rating Scale (Screener/Recent Self-Report) Question [...] on filedocumented in this encounter Care Teams Highway [employer] Relationship Specialty Start Date End Date hBakti Reyes MD [address] [place] [id number] PCP - General Internal Medicine 07/11/23 documented as of this encounter Additional Source Comments The information contained in this document represents components of the legal health record. It is not the complete legal health record.[facility]
[2025-03-21 22:36] VITALS: BP 119/74; PULSE 67; RESP 16; TEMP 36.8; O2SAT 97
--- NOTE | 2025-03-21 22:47 | ED.GENADULT ---
HPI - General Adult General Chief complaint: General Medical Stated complaint: low back pain Time Seen by Provider: 03/21/25 20:08 Source: patient Limitations: no limitations and other (Poor historian) History of Present Illness ED Provider: Suzan Bains PA-C HPI narrative: 70-year-old male with a history of chronic pain, in particular back pain, scoliosis, gout, hyperlipidemia, hypertension, hypothyroidism, PE, AFib on rivaroxaban, GERD, morbid obesity, kidney stones, sleep apnea, presents with multiple complaints. Patient states he sustained multiple falls over the past few days secondary to his acute on chronic low back pain. The pain is nonradiating, spans from mid to low back. Denies weakness of lower extremities, paresthesia, urinary retention or bowel incontinence. Patient states he is supposed to use a walker at home, he often does not, he then loses balance and falls when the pain presents. There was no head strike, no loss consciousness. Patient also complains of left upper abdominal/chest wall pain that just began today. Pain worse with movement, and occurs spontaneously. It is severe when it presents. Denies recent cough or cold symptoms, fever, nausea vomiting diarrhea. Lastly, the patient states he has been having dizziness that has intermittent, of unclear duration. The patient is a very poor historian. Patient states he becomes dizzy when he stands from sitting, and when his back pain becomes severe. Denies headache, visual changes. Related Data Home Medications ?Medication ?Instructions ?Recorded ?Confirmed rivaroxaban 20 mg tablet 20 mg PO DAILY 01/21/23 03/22/25 acetaminophen 500 mg tablet 500 mg PO TID PRN Fever Or Pain 03/22/25 03/22/25 betamethasone dipropionate 0.05 % 1 appl topical BID 03/22/25 03/22/25 topical ointment fluocinonide 0.05 % topical 1 appl topical BID 03/22/25 03/22/25 solution ketoconazole 1 % shampoo 1 appl topical DAILY 03/22/25 03/22/25 levothyroxine 137 mcg tablet 137 mcg PO DAILY@0630 03/22/25 03/22/25 lidocaine 4 % topical cream 1 appl topical BID 03/22/25 03/22/25 Previous Rx's ?Medication ?Instructions ?Recorded metoprolol succinate 50 mg 50 mg PO DAILY #90 tabs 06/19/22 tablet,extended release 24 hr diltiazem HCl 120 mg 120 mg PO DAILY #30 caps 01/21/23 capsule,extended release 24 hr (Cardizem CD) atorvastatin 10 mg tablet 10 mg PO DAILY 90 days #90 tabs 04/16/23 allopurinol 100 mg tablet 100 mg PO DAILY 90 days #90 tabs 06/02/24 potassium citrate 10 mEq (1,080 20 meq (2 x 10 mEq (1,080 mg)) PO 06/02/24 mg) tablet,extended release BID 90 days #360 tabs Allergies Allergy/AdvReac Type Severity Reaction Status Date / Time No Known Allergies (No Known Allergy Verified 03/21/25 20:15 Allergies*) Review of Systems Review of Systems: Yes all other systems are reviewed and are negative Constitutional: Constitutional: Denies fatigue and Denies fever(s) Cardiovascular: Cardiovascular: Reports chest pain and Denies dyspnea Respiratory: Respiratory: Denies dyspnea Gastrointestinal: Gastrointestinal: Reports abdominal pain, Denies diarrhea, Denies nausea and Denies vomiting Musculoskeletal: Musculoskeletal: Reports back pain, Denies numbness, Denies radiating pain into limb and Denies tingling Neurologic: Denies numbness and Denies tingling Endocrine: Endocrine: Denies fatigue [facility] Past Medical History Medical History (Updated 03/24/25 @ 00:00 by Ian Daallie) Hypothyroidism History of thyroid cancer PAF (paroxysmal atrial fibrillation) Hepatic cyst Thyroid cancer Arthritis Vitamin D deficiency Multinodular thyroid Thyroid enlargement Acute respiratory failure with hypoxia Bacteremia Left bundle branch block Paroxysmal atrial fibrillation Atrial fibrillation with rapid ventricular response Scoliosis Hip pain Polycystic liver disease Tubular adenoma of colon Hypertension Obstructive sleep apnea History of kidney stones Hypercholesterolemia Obesity GERD (gastroesophageal reflux disease) Surgical History History of appendectomy History of colonoscopy History of lithotripsy History of removal of cyst History of thyroidectomy Family History Family History Father Medical history unknown Mother Medical history unknown Social History Social History Household Members: None Housing: House Do you presently have visiting nurse or other home services: No Alcohol intake: never Comment: HX SCOLIOSIS, FALL OUTSIDE 2 MONTHS AGO. stopped 2021 Patient Tobacco Use Status: Never used Tobacco e-Cigarette/Vaping Use: Never Used Second Hand Smoke Exposure: No Advance Directives Date on File: 03/22/25 service: No Current occupational status: retired Cognitive needs: No Hearing needs: No Vision needs: Yes Physical Exam ED Vital Signs: Vital Signs - 24 hr 03/22/25 14:56 03/22/25 20:00 03/23/25 06:28 Temperature 97.6 F 98.7 F 97.8 F Pulse Rate 79 70 59 Respiratory Rate 16 18 Blood Pressure 118/62 124/72 111/60 Pulse Oximetry 96 95 99 Oxygen Delivery Method Room Air Room Air Nasal Cannula Oxygen Flow Rate 1 03/23/25 07:32 03/23/25 09:43 03/23/25 09:46 Temperature 98.2 F 98.1 F Pulse Rate 67 74 74 Respiratory Rate 18 18 Blood Pressure 130/76 129/64 129/64 Pulse Oximetry 100 96 Oxygen Delivery Method Nasal Cannula Room Air Oxygen Flow Rate 1 03/23/25 12:00 Temperature 97.5 F Pulse Rate 70 Respiratory Rate 18 Blood Pressure 140/60 H Pulse Oximetry 96 Oxygen Delivery Method Room Air Oxygen Flow Rate BMI result Body Mass Index 32.5 Const Other: Alert Orientation/consciousness: patient oriented x3 Chest Other: Pain elicited left lower anterior chest wall with movement and palpation no deformity noted Resp Effort & Inspection: normal respiratory effort Cardio Other: Normal peripheral perfusion GI Other: Pain left-sided upper abdomen with guarding at times, no deformity Skin Other: Warm dry no rash Neuro Other: Antalgic gait with the use of his walker General: patient oriented x3, no focal motor deficits and CN's II-XI intact bilaterally Extrem Other: Strength 5/5 bilateral lower extremities with resistance Psych Other: Cooperative Course Reevaluation(s) Reevaluation #1: I spoke with the patient that everything is essentially negative, he has been up and ambulatory to the bathroom with a walker, he is feeling better after being medicated, I suggested PT case management, he is in agreement. Time: 05:49 Date: 03/22/25 Provider: EVANGELIST Sanders Patient in physician observation for case management needs. No acute events reported overnight.? No current issues or complaints. VS stable. Patient is pending placement at facility/pending PT/CM eval. Will continue to monitor. 03/22/25 0840 NOE Nance: Physician observation continued. Patient awaiting PT/CM eval for weakness. Vitals stable. Time: 08:36 Date: 03/23/25 Provider: EVANGELIST Mckee Patient in physician observation for case management needs. No acute events reported overnight.? No current issues or complaints. VS stable. PT recommending STR. Patient is pending placement at facility. Will continue to monitor. Time: 13:29 Date: 03/23/25 Provider: EVANGELIST Mckee Physician observation ended at 1329. Patient evaluated by physical therapy, recommending short-term rehab. Per case management, patient will be discharged home w/ [facility]NA for SN and PT. patient agreeable. is at bedside to transport patient home. Medications Administered Discontinued Medications Generic Name Dose Route Start Last Admin Trade Name Freq PRN Reason Stop Dose Admin Acetaminophen 975 mg 03/22/25 22:49 03/22/25 22:52 Acetaminophen 325 Mg Tablet PO 03/22/25 22:50 975 mg ONCE ONE Administration Acetaminophen 650 mg 03/23/25 07:57 03/23/25 09:57 Acetaminophen 325 Mg Tablet PO 650 mg TID PRN Administration Fever Or Pain Allopurinol 100 mg 03/23/25 09:00 03/23/25 09:46 Allopurinol 100 Mg Tablet PO 100 mg DAILY CESAR Administration Atorvastatin Calcium 10 mg 03/23/25 09:00 03/23/25 09:46 Atorvastatin Calcium 10 Mg Tablet PO 10 mg DAILY CESAR Administration Diazepam 5 mg 03/21/25 20:30 03/21/25 21:14 Diazepam 10 Mg/2 Ml Cartridge IVPUSH 03/21/25 20:31 5 mg STAT STA Administration Diltiazem HCl 120 mg 03/23/25 09:00 03/23/25 11:22 Diltiazem Hcl Cd 120 Mg Cap.Er.Deg PO Not Given DAILY CESAR Protocol Acetaminophen 1,000 mg in 100 mls @ 400 mls/hr 03/21/25 20:30 03/21/25 21:49 Ofirmev IV 03/21/25 20:44 Infused ONCE ONE Infusion Iohexol 100 ml 03/21/25 21:19 03/21/25 21:19 Iohexol 350 Mg/Ml 100 Ml Infus..Btl IV 03/21/25 21:20 100 ml ONCE ONE Administration Ketoconazole 1 appl 03/23/25 09:00 03/23/25 09:51 Ketoconazole 2 % Shampoo 120 Ml Btl TOPICAL 1 appl DAILY [facility] Administration Lidocaine HCl 1 appl 03/23/25 09:00 03/23/25 11:13 Lidocaine 4 % Cream Kit TOPICAL Not Given BID [facility] Methocarbamol 1,500 mg 03/21/25 23:34 03/21/25 23:58 Methocarbamol 750 Mg Tablet PO 03/21/25 23:35 1,500 mg ONCE ONE Administration Methocarbamol 1,000 mg 03/22/25 15:04 03/22/25 16:51 Methocarbamol 500 Mg Tablet PO 03/22/25 15:05 1,000 mg ONCE ONE Administration Metoprolol Succinate 50 mg 03/23/25 09:00 03/23/25 09:46 Metoprolol Succinate Er 50 Mg Tab.Er.24h PO 50 mg DAILY [facility] Administration Protocol Non-Formulary Medication 1 appl 03/23/25 09:00 03/23/25 14:06 Fluocinonide TOPICAL Not Given BID [facility] Oxycodone HCl 5 mg 03/23/25 10:29 03/23/25 11:23 Oxycodone Hcl Immed Release 5 Mg Tablet PO 03/23/25 10:30 5 mg ONCE ONE Administration Potassium Chloride 20 meq 03/23/25 09:00 03/23/25 09:46 Potassium Chloride Er 20 Meq Tab.Er.Prt PO 20 meq BID [facility] Administration Rivaroxaban 20 mg 03/22/25 15:03 03/22/25 16:24 Rivaroxaban 20 Mg Tablet PO 03/22/25 15:04 20 mg ONCE ONE Administration Rivaroxaban 20 mg 03/23/25 09:00 03/23/25 09:46 Rivaroxaban 20 Mg Tablet PO 20 mg DAILY [facility] Administration Triamcinolone Acetonide 1 appl 03/23/25 09:00 03/23/25 09:51 Triamcinolone Acet 0.5 % Cream 15 Gm Tube TOPICAL 1 appl BID CESAR Administration Medical Decision Making Medical Decision Making MDM Narrative: 70-year-old male with a history of chronic pain, in particular back pain, scoliosis, gout, hyperlipidemia, hypertension, hypothyroidism, PE, AFib on rivaroxaban, GERD, morbid obesity, kidney stones, sleep apnea, presents with multiple complaints. Patient states he sustained multiple falls over the past few days secondary to his acute on chronic low back pain. The pain is nonradiating, spans from mid to low back. Denies weakness of lower extremities, paresthesia, urinary retention or bowel incontinence. Patient states he is supposed to use a walker at home, he often does not, he then loses balance and falls when the pain presents. There was no head strike, no loss consciousness. Patient also complains of left upper abdominal/chest wall pain that just began today. Pain worse with movement, and occurs spontaneously. It is severe when it presents. Denies recent cough or cold symptoms, fever, nausea vomiting diarrhea. Lastly, the patient states he has been having dizziness that has intermittent, of unclear duration. The patient is a very poor historian. Patient states he becomes dizzy when he stands from sitting, and when his back pain becomes severe. Denies headache, visual changes. Problem: Age, chronic back pain, gait instability History: Per patient I have considered the following differential diagnoses: Musculoskeletal strain, ACS, lumbar radiculopathy, cauda equina, compression fracture, rib fracture, perforated viscus, vertigo, posterior circulation CVA Plan: The patient initially presents with low back pain. As I am attempting to assess him, he is alluding to the fact that he has pain everywhere. He has sustained multiple falls over the past few days, perhaps he has rib fractures versus perforated viscus. I essentially I am obtaining CT scans of his chest abdomen and pelvis. In regard to the dizziness, he has numerous vascular risk factors, and his symptoms are not consistent with vertigo. I am concerned for potential posterior circulation CVA. Again, as I have stated, the patient is a very poor historian, it is difficult to discern if he is dizzy and losing his balance secondary to a potential stroke versus secondary to his pain which causes him to lose his balance. He also admits to nonadherence with the use of his walker. Obtaining angiograms. We will give Tylenol and a muscle relaxant. I also considered ACS given anterior chest pain, screening labs including troponin EKG obtained, however his pain is very consistent with chest wall pain it is reproducible with movement and palpation. I have independently reviewed the lab following tests: Labs: No leukocytosis, not anemic, no electrolyte abnormality, troponin less than 2.7, EKG: Normal sinus rhythm, rate of 70, incomplete left bundle is not a new finding No active ischemic changes no ectopy QTC 451 CT brain: CT angio brain: CT angio neck: Findings: HEAD CT: No intra-axial mass, midline shift, hydrocephalus, or acute hemorrhage. No significant atrophy-like change or white matter disease. There is no sinus or mastoid fluid. The orbits are unremarkable. There is no acute fracture. HEAD AND NECK CTA: Aortic arch and cervical great vessels are patent. Intracranial arteries are patent. No aneurysm, dissection, or occlusion. No abnormal intracranial enhancement. The visualized thyroid gland is unremarkable. No cervical mass or fluid collection. Lung apices clear. No acute fracture. IMPRESSION: 1. Unremarkable head CT. 2. Patent head and neck CTA. CT chest: Findings: The heart is normal size. The visualized thyroid and mediastinum are unremarkable. No consolidation or effusion. Bibasilar atelectatic/dependent changes. The bones are intact. Moderate to severe levoscoliosis of the midthoracic spine. IMPRESSION: 1. No acute disease within the chest. CT abdomen and pelvis:Findings: The lung bases are clear. Multiple large hepatic cysts, unchanged in the interval. Gallbladder is mostly contracted. Few nonobstructing stones are noted within the left kidney measuring up to 4 mm in size. No hydronephrosis bilaterally remainder of the solid organs are within normal limits. No bowel obstruction, pneumoperitoneum, or pneumatosis. Pelvic contents unremarkable. Appendix is not definitely visualized, correlate history of appendectomy. Moderate to severe multilevel spondylosis of the lumbar spine with moderate dextroscoliosis. IMPRESSION: No acute findings. Other chronic findings as detailed in the findings. Differential Diagnosis Differential Diagnoses: The differential diagnosis associated with the presentation includes See medical decision-making Admission/Observation Consideration of admission/observation: Escalation of care including admission/observation considered Not applicable Consult Healthcare Provider Management of the patient was discussed with: [employer] PT and case management Lab Data MDM Lab Attestation statement: I reviewed the patient's lab results. 03/21/25 20:19 03/21/25 20:19 Labs: Lab Results 03/21/25 03/22/25 Range/Units 20:19 08:31 WBC 6.0 (4.8-10.8) X10*3/uL RBC 4.29 L (4.60-5.80) X10*6/uL Hgb 13.1 L (14.0-18.0) g/dl Hct 39.3 L (42.0-52.0) % MCV 91.6 (80.0-98.0) fL MCH 30.5 (27.0-33.0) pg MCHC 33.3 (31.0-36.0) g/dl RDW 14.6 (11.0-16.0) % Plt Count 181 (160-400) X10*3/uL MPV 10.1 (9.4-12.4) fL Immature Gran % (Auto) 0.3 (0.0-0.4) % Neut % (Auto) 77.2 H (45-73) % Lymph % (Auto) 14.1 L (20-40) % [place] % (Auto) 5.6 (2-11) % Eos % (Auto) 2.3 (0-4) % Baso % (Auto) 0.5 (0-2) % Lymph # (Auto) 0.9 L (1.2-4.9) X10*3/uL [place] # (Auto) 0.3 (0.1-1.2) X10*3/uL Eos # (Auto) 0.1 (0.0-0.4) X10*3/uL Baso # (Auto) 0.0 (0.0-0.2) X10*3/uL Abs Immat Gran (auto) 0.02 (0.00-0.03) X10*3/uL Absolute Neuts (auto) 4.7 (2.0-8.3) x10*3/uL Absolute Nucleated RBC 0.000 (0.0-0.012) X10*3/uL Nucleated RBC % (auto) 0.0 (0.0-0.2) /100WBC Sodium 143 (135-145) mmol/L Potassium 3.6 (3.3-5.1) mmol/L Chloride 110 H (96-108) mmol/L Carbon Dioxide 27 (22-29) mmol/L Anion Gap 10 L (12-20) BUN 13 (9-16) mg/dL Creatinine 1.02 (0.5-1.4) mg/dL Estim Creat Clear Calc 93.2 Estimated GFR > 60 Random Glucose 274 H (60-115) mg/dL Calcium 8.5 D (8.4-10.2) mg/dL Magnesium 2.0 (1.6-2.6) mg/dL Total Bilirubin 0.8 (0.0-1.0) mg/dL AST 17 (5-37) U/L ALT 18 (0-40) U/L Alkaline Phosphatase 76 (39-117) U/L Troponin I High Sens < 2.7 D (<3.5-35.0) ng/L Total Protein 6.1 L (6.5-8.0) g/dL Albumin 3.7 (3.5-5.0) g/dL Influenza Type A (PCR) NEGATIVE (Negative) Influenza Type B (PCR) NEGATIVE (Negative) RSV RNA Qual (PCR) NEGATIVE (Negative) SARS-CoV-2 RNA (RT-PCR) NEGATIVE (Negative) Independent Interpretation I performed an independent interpretation of an: EKG Radiology Impression Discussion of test interpretation with radiology: I have reviewed the radiologist's reading. Discharge Plan Discharge Clinical Impression: Gait instability, Chronic back pain Patient Disposition: Home, Self-Care Instructions: Back Pain (ED) Additional Instructions: Your workup is reassuring. You were evaluated by physical therapy and case management with recommendation to discharged home with [facility] for intermediate and physical therapy. You are agreeable with plan. Follow up with outpatient providers as needed. Continue all home medications as prescribed. Return with any new or worsening symptoms. In the case of an emergency call 911. Prescriptions: No Action atorvastatin 10 mg tablet 10 mg PO DAILY 90 Days Qty: 90 1RF rivaroxaban 20 mg tablet 20 mg PO DAILY diltiazem HCl [Cardizem CD] 120 mg capsule,extended release 24hr 120 mg PO DAILY Qty: 30 0RF ketoconazole 1 % Shampoo 1 appl TOPICAL DAILY acetaminophen 500 mg Tablet 500 mg PO TID PRN (Reason: Fever Or Pain) fluocinonide 0.05 % Solution 1 appl TOPICAL BID Rx Instructions: apply to scalp levothyroxine 137 mcg tablet 137 mcg PO DAILY@0630 betamethasone dipropionate 0.05 % Ointment 1 appl TOPICAL BID lidocaine 4 % Cream 1 appl TOPICAL BID metoprolol succinate 50 mg tablet extended release 24 hr 50 mg PO DAILY Qty: 90 1RF potassium citrate 10 mEq (1,080 mg) tablet extended release 20 meq PO BID 90 Days Qty: 360 3RF allopurinol 100 mg tablet 100 mg PO DAILY 90 Days Qty: 90 3RF Referrals: [facility] [Outside] Po,Bhakti Vaughan MD [Primary Care Provider, Internal Medicine] Interventions: ED Discharge Assessment Last Done: 03/23/25 14:04 Discharge Date/Time: 03/23/25 14:04 Print Language: Telugu
--- NOTE | 2025-03-22 | ECG_ITS ---
Test Reason : CP Blood Pressure : */* mmHG Vent. Rate : 65 BPM Atrial Rate : 65 BPM P-R Int : 176 ms QRS Dur : 102 ms QT Int : 428 ms P-R-T Axes : 31 8 56 degrees QTcB Int : 445 ms Normal sinus rhythm Cannot rule out Inferior infarct , age undetermined Abnormal ECG When compared with ECG of 21-Mar-2025 20:09, Nonspecific T wave abnormality now evident in Anterior leads Referred By: Generic ED Physician Electronically Signed By: YULIET GRAY
--- NOTE | 2025-03-22 00:01 | PC.NURSE ---
medicated per mar.
[2025-03-22 01:22] VITALS: BP 101/53; PULSE 58; TEMP 36.7; O2SAT 97
--- NOTE | 2025-03-22 03:44 | PC.NURSE ---
pt sleeping at this time no sign of distress.
[2025-03-22 06:38] VITALS: BP 110/49; PULSE 70; RESP 16; O2SAT 96
--- NOTE | 2025-03-22 06:42 | PC.NURSE ---
pt report ekg place for chest pain.
--- NOTE | 2025-03-22 06:47 | PC.NURSE ---
pt oob with walker to rest room, pt complaining of chest pain, EKG ordered and completed.
[2025-03-22 08:32] VITALS: BP 129/68; PULSE 67; RESP 16; O2SAT 97
[2025-03-22 09:13] LABS: Resp Syncy Virus RNA Qual PCR NEGATIVE (Negative); SARS COV2 PCR INHOUSE NEGATIVE (Negative)
--- NOTE | 2025-03-22 10:30 | MHC.CM.ED ---
Addendum entered by Letitia Maldonado 03/22/25 12:33: [facility] is the only facility that is able to offer a bed. Patient aware and agreeable. [facility] is in the process of obtaining insurance auth. Will need HCP completed. Original Note: Received case management consult overnight. Patient came to the ER due to acute exac of chronic back pain. Physical therapy eval completed. Short term rehab is recommended. Met with patient in regards to discharge planning. Patient lives with his , ambulates with a walker and had no services prior to coming to the hospital. PCP verified. Patient agreeable to referral being broadcasted to all facilities within 15 miles of patient's home that are contracted with patient's insurance. [facility]. Referral made via [facility]. Continue to monitor for d/c needs.
[2025-03-22 11:00] VITALS: BP 135/72; PULSE 69; RESP 20; TEMP 36.9
--- NOTE | 2025-03-22 12:40 | MHC.CM.ED ---
HCP completed, signed and witnessed. Original given to patient. Copy placed in chart.
[2025-03-22 14:56] VITALS: BP 118/62; PULSE 79; RESP 16; TEMP 36.4; O2SAT 96
--- NOTE | 2025-03-22 16:21 | PC.NURSE ---
Care of Pt assumed at 3p. Pt is resting quietly at this time. Pt scheduled for Robxin 1000mg however medication is unavailable in [employer] machine. Pharmacy contacted and will deliver. Awaiting delivery.
--- NOTE | 2025-03-22 19:34 | PHA.MEDREC ---
Pharmacy Consult ? Medication Reconciliation Pharmacy has completed the medication reconciliation.
[2025-03-22 20:00] VITALS: BP 124/72; PULSE 70; RESP 18; TEMP 37.1; O2SAT 95
[2025-03-23 06:28] VITALS: BP 111/60; PULSE 59; TEMP 36.6; O2SAT 99
[2025-03-23 07:32] VITALS: BP 130/76; PULSE 67; RESP 18; TEMP 36.8; O2SAT 100
--- NOTE | 2025-03-23 08:57 | MHC.CM.ED ---
Addendum entered by Letitia Maldonado 03/23/25 13:17: No acute rehab bed offers. Met with patient in regards to discharge planning. Patient agreeable to d/c home with [facility] for SN and PT. States his will transport him home. Spoke with Fara, via telephone at [phone]. Fara is concerned patient has been having falls. Explained private pay SNF was an option. Fara states she is not able to afford private pay SNF. Fara encouraged to reach out to pain management about follow up for back injections. Fara verbalized understanding and will be on-site at 145pm. Sherin STANTON aware and asked for patient to be in waiting room. Sherin verbalized understanding. Queenie BLANCA aware and agreeable. Original Note: Patient remains in ER overflow. Received notification from [facility] that [employer] is secondary. Medicare #[id number] is primary. Patient has not had a QHS. Referral satish be sent to all 3 acute rehab facilities. Continue to monitor for d/c needs.
[2025-03-23 09:43] VITALS: BP 129/64; PULSE 74; RESP 18; TEMP 36.7; O2SAT 96
[2025-03-23 09:46] VITALS: BP 129/64; PULSE 74
[2025-03-23] MEDS: Metoprolol Succinate ER 50 MG TAB.ER.24H PO (09:46)
[2025-03-23] MEDS: Potassium Chloride ER 20 MEQ TAB.ER.PRT PO (09:46)
--- NOTE | 2025-03-23 09:50 | PC.NURSE ---
Pharmacy contacted for pt dose of diltiazem as it is not loaded in pyxis.
[2025-03-23] MEDS: Triamcinolone Acet 0.5 % Cream 15 GM TUBE 1 APPL TOPICAL (09:51)
[2025-03-23] MEDS: Ketoconazole 2 % Shampoo 120 ML BTL 1 APPL TOPICAL (09:51)
[2025-03-23] MEDS: oxyCODONE HCl Immed Release 5 MG TABLET PO (11:23)
[2025-03-23 12:00] VITALS: BP 140/60; PULSE 70; RESP 18; TEMP 36.4; O2SAT 96
--- NOTE | 2025-03-23 14:02 | MHC.CM.ED ---
Addendum entered by Letitia Maldonado 03/23/25 14:37: [facility] will accept patient. Fara made aware via telephone. Fara stated she [facility] with the [facility] and the [facility] stated he never should have been discharged. T/W explained [facility] was not made aware patient was a or service connected for STR. Patient informed Fara that he did not mention this. Fara is going to speak to patient's [facility] Rv Mechanic to try and find rehab from home. T/W explained patient can always return to ER if needed. Patient and Fara verbalize understanding. Original Note: Received notification from Sherin STANTON that , Fara is requesting [facility]. Referral made to Ana María.
[2025-03-23 14:04] VITALS: BP 140/60; PULSE 70; RESP 18; TEMP 36.4; O2SAT 96
--- NOTE | 2025-03-24 07:38 | MHC.CM.ED ---
Received notification from [facility] that they are not able to accept patient. [facility] made aware and still able to accept patient.
== END 2025-03-23 14:04 | disposition home or self-care (01) ==
PROVIDERS: Physician Assistant Medical; Registered Nurse Emergency; Emergency Provider Emergency Medicine; PCP Internal Medicine
DX: G89.29 Other chronic pain (principal); M54.50 Low back pain, unspecified; R26.89 Other abnormalities of gait and mobility; R07.89 Other chest pain; R10.12 Left upper quadrant pain; M54.2 Cervicalgia; Z79.899 Other long term (current) drug therapy; Z03.818 Encounter for observation for suspected exposure to other biological agents ruled out; Z91.81 History of falling
CPT/HCPCS: 36415; 70496; 70498; 71260; 74177; 80053; 83735; 84484; 85025; 87637; 93005; 96365; 96375; 97162; 99285; J0131; J3360; Q9967

== ENCOUNTER → 2025-03-21 20:09 | Outpatient (BNV) | payer BC, SELFPAY | PROVIDERS: Emergency Provider Emergency Medicine; PCP Internal Medicine; Visit Provider Internal Medicine | DX: I45.10 Unspecified right bundle-branch block (principal) | CPT/HCPCS: 93010 ==

== ENCOUNTER → 2025-03-21 20:27 | Outpatient (BNV) | payer BC, SELFPAY | PROVIDERS: Emergency Provider Emergency Medicine; PCP Internal Medicine; Visit Provider Student in an Organized Health Care Education/Training Program | DX: R10.12 Left upper quadrant pain (principal); R42 Dizziness and giddiness; R26.89 Other abnormalities of gait and mobility; R07.89 Other chest pain; W19.XXXA Unspecified fall, initial encounter | CPT/HCPCS: 70496; 70498; 71260; 74177 ==

== ENCOUNTER → 2025-03-22 06:48 | Outpatient (BNV) | payer BC, SELFPAY | PROVIDERS: Emergency Provider Emergency Medicine; PCP Internal Medicine; Visit Provider Internal Medicine | DX: R94.31 Abnormal electrocardiogram [ECG] [EKG] (principal); R07.89 Other chest pain | CPT/HCPCS: 93010 ==

== ENCOUNTER 2025-05-25 11:26 | Outpatient (REF) | payer BC, SELFPAY ==
--- NOTE | ~2025-05-25 | US_ITS ---
CLINICAL HISTORY: N20.0 - Calculus of kidney US of kidneys Comparison: CT/SR - CT ABDOMEN PELVIS W IV CON - 03/21/25 21:02 EDT US/SR - US RENAL BI - 05/19/24 10:33 EST Findings: Right kidney is normal in size, echogenicity and morphology, 12.1 cm in length. No calculus or hydronephrosis. 1.5 cm benign cyst in the midpole. No abnormal vascular flow. Left kidney is normal in size, echogenicity and morphology, 10.5 cm in length. Calyceal calculi 5 mm in the lower pole, 3 mm in the midpole, no hydronephrosis or mass. No abnormal vascular flow. Equivocal perinephric fluid noted. Impression: 1. Nonobstructing left nephrolithiasis. 2. Right renal benign cysts. 3. Equivocal left perinephric fluid. This document has been electronically signed by: Disha Max MD on 05/25/2025 14:52:31
--- OUTSIDE RECORDS SUMMARY | 2025-05-25 13:48 | XMS_ITS | Clinical Summary ---
Author Organization [facility] Address [address] [place] [address] Phone Care Team Providers Care Factory Hand Name Role Phone Bhakit Reyes MD Primary Care Provider [phone] Allergies No known active allergies Medications allopurinol (ZYLOPRIM) 100 MG tablet Take 100 mg by mouth daily. 12/25/2024 Active atorvastatin (LIPITOR) 10 MG tablet Take 10 mg by mouth daily. 12/25/2024 Active dilTIAZem (CARDIZEM CD) 120 MG 24 hr capsule Take 120 mg by mouth daily. 12/25/2024 Active omega 2-slx-nys-fish oil (FISH OIL) 1,000 (120-180) mg Cap [...] and metoprolol with holding parameters. Continue Xarelto. Family History Medical History Relation Comments Diabetes [...] your housing situation today? I have coretta cardona 01/11/2025 How many times have you move [...] years) (1 of 1 - PCV) 2005 TSH LEVEL 09/11/2024 09/12/2023 INFLUENZA VACCINE (#1) 2025 COVID-19 VACCINE (1 - 2024-2 6 season) 2025 CREATININE LEVEL 01/12/2026 01/12/2025, 01/11/2025 Adult Td,Tdap Booster 05/22/2027 05/22/2017 RSV VACCINE (1 - 1-dose 75+ series) 2030 ZOSTER VACCINES Completed 06/23/2023, 08/09/2021 ABDOMINAL AORTIC [...] Procedure Name Priority Date/Time Associated Diagnosis Comments COMPREHENSIVE METABOLIC PANEL (CMP) Routine 01/12/2025 6:[address] ABDOMEN/PELVIS WITHOUT CONTRAST Routine 01/11/2025 7:00 PM EDT from Last 3 Months or Most Recently Relevant to Health Maintenance Results * (ABNORMAL) Comprehensive metabolic panel (01/12/2025 6:12 AM EDT) SODIUM 140 133 - 146 mmol/L [facility] POTASSIUM 3.8 3.3 - 5.1 mmol/L [facility] CHLORIDE 106 96 - 108 mmol/L [facility] CO2 26 21 - 35 mmol/L [facility] BUN 19 6 - 19 mg/dL [facility] CREATININE 1.10 0.5 - 1.5 mg/dL [facility] GLUCOSE 114(H) 70 - 99 mg/dL [facility] ALBUMIN 3.4(L) 3.9 - 4.8 g/dL [facility] TOTAL PROTEIN 5.8(L) 6.5 - 8.0 g/dL [facility] CALCIUM 8.4 8.4 - 10.3 mg/dL [facility] ALKALINE PHOSPHATASE 75 39 - 117 U/L [facility] TOTAL BILIRUBIN 0.8 0.0 - 1.2 mg/dL [facility] AST 15 0 - 37 U/L [facility] ALT 15 0 - 40 U/L [facility] GLOBULIN 2.4 1 - 4.8 g/dL [facility] EGFR 73 >59 mL/min/1.7 3m2 [facility] Comment:Estimated glomerular filtration rate calculated using the CKD-EPI refit equation. ANION GAP 12 10 - 20 mmol/L [facility] Blood 01/12/2025 6:12 AM EDT 01/12/2025 6:34 AM EDT us Melquiades Solares MD LAB BLOOD BKR ORDERABLES Final Result [facility] [address] [place] [address] * CT ABDOMEN/PELVIS WITHOUT CONTRAST (01/11/2025 7:00 [...] clinician's provided indication for this examination in [facility]: * Flank pain, kidney stone suspected [...] with multilevel degenerative changes Procedure Note Adriel Smyth MBBS - 01/11/2025 CT ABDOMEN/PELVIS WITHOUT CONTRAST Referring clinician's provided indication for this examination in [facility]: *Flank pain, kidney stone suspected TECHNIQUE: [...] PA-C IMG CT ABD/PELVIS Final Resu lt from Last 3 Months or Most Recently Relevant to Health Maintenance [place] [address] [place] [address] MEDICARE A MEDICARE A MEDICARE A MEDICARE A Member Subscriber Plan / Payer (Ef fective 2020-Present) Name:Arlet Mario Member ID:[id number] Relation to Subscriber:Self Name:Mario Nice Subscriber ID:[id number] Payer ID:[id number] Group ID:Not on file Type:Medicare Address: [facility] [employer] [facility] [address] [place], [place] [id number] MEDICARE A [facility] MEDICARE A Advance Directives For more information, please contact: [phone] (9AM - 5PM [facility], Friday-Friday) * Full Code (Latest Code Status on File) Date Activated Date Inactivated Comments 01/12/2025 12:29 AM Question Answer Comments Code Status Confirmed With: Patient Code Status Communicated To: Inpatient Attending Care Teams Factory Hand Relationship Specialty Start Date End Date Eric Bhakti Juares MD [address] [place] [address] [address] [place] [address] PCP - General Internal Medicine 07/11/23 Additional Source Comments The information contained in this document represents components of the legal health record. It is not the complete legal health record.[facility]
--- OUTSIDE RECORDS SUMMARY | 2025-05-25 13:49 | XMS_ITS | Encounter Summary ---
Author Organization [facility] Address [address] [place] [address] Phone Care Team Providers Care Bread Wrapper Name Role Phone Bhakti Reyes MD Primary Care Provider [phone] Encounter Details Date Type Department Care Team (Late st Contact Info) Description 01/11/2025 Procedure Pass [facility], Ct Scan - [address] [address] Social History Tobacco Use Types Packs/Day Years [...] 01/12/2025 1:34 AM Harjinder Ingram RN * [place] Suicide Severity Rating Scale (Screener/Recent Self-Report) Question [...] on filedocumented in this encounter Care Teams Bread Wrapper Relationship Specialty Start Date End Date Bhakti Reyes MD [address] [place] [id number] PCP - General Internal Medicine 07/11/23 documented as of this encounter Additional Source Comments The information contained in this document represents components of the legal health record. It is not the complete legal health record.[facility]
== END 2025-05-25 11:27 | disposition home or self-care (01) ==
LOC: HO.HMGCX 11:26
PROVIDERS: PCP Internal Medicine; Visit Provider Urology
DX: N20.0 Calculus of kidney (principal)
CPT/HCPCS: 76775

== ENCOUNTER → 2025-05-25 11:27 | Outpatient (BNV) | payer BC, SELFPAY | PROVIDERS: PCP Internal Medicine; Visit Provider Radiology Diagnostic Radiology | DX: N20.0 Calculus of kidney (principal) | CPT/HCPCS: 76775 ==

== ENCOUNTER 2025-06-03 11:49 | Outpatient (AMB) | payer BC, SELFPAY ==
--- NOTE | 2025-06-03 13:35 | A.OFFVIS_ITS ---
Intake Visit Reasons: 1Y Ultrasound(set) Intake Note: Reason for Visit: Ultrasound Results Urology Meds: Allopurinol, Potassium, Blood Thinners: Rivaroxaban Labs: PSA- 2.75 (06/29/2024) Imaging: Renal Ultrasound- 05/25/2025 Last PVR: None Lamination Operator Required: No Accompanied by: Self / Same As Patient Allergies No Known Allergies (No Known Allergies*) Allergy (Verified 06/03/25 13:41) HPI Comments Details: Carlos is a pleasant male. He is a patient of Dr. Reyes. He is seen for following urologic issues - renal stones - prostate nodule Six-month follow-up Small stone left side Minimal symptoms Twelve month follow-up check PSA Prostate Nodule PSA 07/17 2.7 Nephrolithiasis Current consultation for further evaluation of nephrolithiasis Imaging - 01/10 CT scan with left distal stone, bilateral scattered stones maximum 3 mm on right - 05/13 renal ultrasound bilateral 3 mm stone - 12/12 renal ultrasound 4 mm left stone - 06/13 renal ultrasound 3 mm bilateral stone - 06/14 renal ultrasound bilateral 4-5 mm stones to each side. - 01/13 CT bilateral 2 mm stones each side - 4 mm proximal right with mild hydroureteronephrosis, creatinine 1.0 - 06/15 renal ultrasound 3 mm right - 06/16 renal ultrasound 5 mm left Renal intervention - 02/10 left ureteroscopy laser lithotripsy stent placement Stone analysis - prior calcium oxalate Therapy - fluid intake - 2 times a day 20 mEq citrate PFSH Medical History Hypothyroidism History of thyroid cancer PAF (paroxysmal atrial fibrillation) Hepatic cyst Thyroid cancer Arthritis Vitamin D deficiency Multinodular thyroid Thyroid enlargement Acute respiratory failure with hypoxia Bacteremia Left bundle branch block Paroxysmal atrial fibrillation Atrial fibrillation with rapid ventricular response Scoliosis Hip pain Polycystic liver disease Tubular adenoma of colon Hypertension Obstructive sleep apnea History of kidney stones Hypercholesterolemia Obesity GERD (gastroesophageal reflux disease) Surgical History History of appendectomy History of colonoscopy History of lithotripsy History of removal of cyst History of thyroidectomy Family History Father Medical history unknown Mother Medical history unknown Social History Household Members: None Housing: House Do you presently have visiting nurse or other home services: No Alcohol intake: never Comment: HX SCOLIOSIS, FALL OUTSIDE 2 MONTHS AGO. stopped 2021 Patient Tobacco Use Status: Never used Tobacco e-Cigarette/Vaping Use: Never Used Second Hand Smoke Exposure: No Advance Directives Date on File: 03/22/25 service: No Current occupational status: retired Cognitive needs: No Hearing needs: No Vision needs: Yes Review of Systems Const Denies chills and Denies fever(s) Card Reports no additional complaints and Denies syncope Resp Denies cough GI Denies abdominal pain and Denies heartburn Reports as per HPI and Denies change in libido Neuro Denies syncope Psych Denies change in libido Endo Denies change in libido Physical Exam Const General: cooperative, healthy appearing, comfortable and no acute distress Orientation/consciousness: patient oriented x3 HEENT Face and sinus: Yes normal facial exam Mouth: moist mucous membranes Neck Neck: Yes normal visual inspection, Yes full ROM and Yes trachea midline Chest Chest palpation & inspection: normal inspection of the chest Resp Effort & Inspection: normal respiratory effort, able to speak in complete sentences and no respiratory distress GI Inspection: Yes normal to inspection Back/Spine/Pelvis Cervical Spine: normal cervical lordosis Thoracic/Lumbar Spine: thoracic and lumbar spine normal to inspection Skin General skin exam: no rashes or lesions noted Neuro General: patient oriented x3, gait normal, tone normal and moves all extremities Extrem General: Yes normal to inspection and Yes capillary refill normal Assessment & Plan Assessment & Plan (1) Nephrolithiasis: Code(s): N20.0 - Calculus of kidney Category: Medical (2) Prostate nodule: Code(s): N40.2 - Nodular prostate without lower urinary tract symptoms Category: Medical Plan Twelve month follow-up repeat imaging and PSA Orders: Orders US renal BI 12 Months N20.0 - Calculus of kidney Prostate Specific Antigen 12 Months N20.0 - Calculus of kidney Patient Instructions: This note is constructed using voice recognition software. While every effort has been made to ensure accuracy cushion worker errors may have been included. Imaging studies, laboratory and physical exam results were discussed and reviewe d in detail. No major barriers to patient understanding were identified. An opportunity to ask questions regarding the treatment plan was provided. All questions were answered. The patient expressed understanding and agreement with the above treatment plan. The patient is aware they should contact our office by phone for worsening of their current condition or the appearance of new urologic symptoms. Compliance is encouraged with any medications and followup testing that is ordered. It is a privilege to participate in the urologic care of your patient. If you have any questions or concerns regarding treatment for the above conditions, or other urologic issues, please do not hesitate to contact me. The office telephone contact is [phone]. Sincerely, Dr Derek Darden MD, [facility] - Urology Compassionate Specialist Care for the Genitourinary System Coding Level of Care Code Est Pt Level 3 (41970) Add On Problem Visit Only Diagnoses Nephrolithiasis N20.0 Prostate nodule N40.2
--- OUTSIDE RECORDS SUMMARY | 2025-06-03 17:02 | XMS_ITS ---
Author Name Manjinder Lopez Address Unknown Organization [facility] Care Team Providers Care Electron Beam Photo Mask Maker Name Role Phone Unavailable Primary Care Physician Unavailab le History Of Present Illness No Data Medications Medication Generic Name RxNorm Strength Strength Unit Route Dose Dose Form Frequency Date Started Date Ended Status Indication Sig betamethaso ne dipropionat e betameth asone dipropio bennett 828659 0.05 % Topica l lotio n 07/19/19 25 suspend ed Appl y Am and PM scal p itch as need ed betamethaso ne dipropionat e betameth asone dipropio bennett 142294 0.05 % Topica l lotio n 02/16/20 25 suspend ed Appl y AM and PM scal p and uppe r back itch as need ed betamethaso ne dipropionat e betameth asone dipropio bennett 502449 0.05 % Topica l ointm ent 03/14/20 25 active Appl y AM and PM scal p as need ed for itch betamethaso ne valerate betameth asone valerate 0.1 % Topica l apply thin layer to skin lotio n as needed 07/20/19 25 suspend ed Appl y AM and PM scal p for itch ciclopirox ciclopir ox 780336 0.77 % Topica l cream Bid 09/07/19 20 suspend ed Appl y AM and PM to bonifacio a butt ocks for 4 week s ciclopirox ciclopir ox 352678 0.77 % Topica l cream BID 03/23/20 21 suspend ed Appl y AM and PM to tops , side s, gulshan om of feet , betw een toes for 4 week s. clobetasol clobetas ol 365815 0.05 % Topica l cream BID 05/19/20 19 suspend ed ECZEMA APPL Y AM AND PM ECZE MA BACK AND BUTT OCKS FOR UP TO 2 WEEK S WHEN NEED ED fluocinonid e fluocino nide 918912 0.05 % Topica l apply thin layer to skin solut ion as needed 05/18/20 24 active Appl y 5-10 drop s AM and PM scal p and mass age in halobetasol propionate halobeta jaiden propiona te 950324 0.05 % Topica l cream BID 08/31/19 23 suspend ed Appl y AM and PM ecze ma left hand and foot for 2 week s when need ed. Neve r use face groi n or unde rarm s ketoconazol e ketocona zole 112730 2 % Topica l cream 04/04/20 22 suspend ed Tinea Appl y AM and PM to top, side , gulshan om of left foot and betw een toes for 4 week s ketoconazol e ketocona zole 535854 2 % Topica l apply small amoun t to hair shamp oo When Shampooing 12/29/19 24 active Appl y to damp hair , lath er leav e in 5 ana amrik and rins e out. Use when sham pooi ng mupirocin mupiroci n 194256 2 % Topica l ointm ent 03/24/20 24 suspend ed Appl y AM and PM righ t rivka k for 10 days chanel t/sc ab Sernivo betameth asone dipropio bennett 1968369 0.05 % Topica l spray with pump [...] griseofulvi n microsize griseofu lvin microsiz e 652134 500 mg Oral table t QD 10/07/19 21 suspend ed Tinea Take one PO QD with food and milk hydroxyzine HCl hydroxyz ine HCl 896686 10 mg Oral 1 table t QHS 07/19/19 25 suspend ed Take one pill po at supp er and if need ed bedt lavonne prn itch . Do not driv e or oper ate heav y mach iner y levothyroxi ne levothyr oxine 150 mcg Oral 1 table t daily active lutein lutein Oral suspend ed PreserVisio n AREDS vitamins A,C,E-zi nc-coppe r 14,320-22 6-200 unit-mg-u nit Oral 1 capsu le Qd active Xarelto rivaroxa ban 20 mg Oral 1 table t Qd active metoprolol tartrate metoprol ol tartrate 50 mg Oral 1 table t QD active DermOtic Oil fluocino lone acetonid e oil 6369309 0.01 % Otic (ear) drops BID 08/22/19 21 suspend ed Eczema Appl y 2-4 drop s righ t ear for 2 week s clobetasol clobetas ol 130200 0.05 % Scalp solut ion 03/23/20 21 [...] Status Date of Diagnosis Date of Resolution History of clinical finding in subject (situation) 301288392( SNOMED) Problem active Disorder of skin (disorder) 35998109(S NOMED) Diagnosis active 12/29/2018 Atopic dermatitis (disorder) 69094468(S NOMED) Diagnosis active 12/01/2018 Atopic dermatitis (disorder) 16697816(S NOMED) Diagnosis active 11/03/2018 Atopic dermatitis (disorder) 26058250(S NOMED) Diagnosis active 01/26/2018 Itching of skin (finding) 328584563( SNOMED) Diagnosis active 10/10/2017 Melanocytic nevus of trunk (disorder) 661027792( SNOMED) Diagnosis active 08/22/2017 Benign neoplasm of skin of upper limb (disorder) 38206724(S NOMED) Diagnosis active 08/08/2017 Itching of skin (finding) 654496597( SNOMED) Diagnosis active 07/29/2017 Benign neoplasm of skin of trunk (disorder) 44844665(S NOMED) Diagnosis active 07/18/2017 Atopic dermatitis (disorder) 14517146(S NOMED) Diagnosis active 06/18/2017 Atopic dermatitis (disorder) 70967328(S NOMED) Diagnosis active 06/18/2017 Atopic dermatitis (disorder) 62817728(S NOMED) Diagnosis active 05/09/2017 Tinea corporis (disorder) 26934443(S NOMED) Diagnosis active 02/07/2017 Atopic dermatitis (disorder) 35965741(S NOMED) Diagnosis active 12/10/2016 Atopic dermatitis (disorder) 27093723(S NOMED) Diagnosis active 11/25/2016 Itching of skin (finding) 143403983( SNOMED) Diagnosis active 10/23/2016 Tinea corporis (disorder) 25412409(S NOMED) Diagnosis active 09/09/2016 Tinea corporis (disorder) 31764241(S NOMED) Diagnosis active 07/29/2016 Tinea corporis (disorder) 37248773(S NOMED) Diagnosis active 07/03/2016 Atopic dermatitis (disorder) 79900594(S NOMED) Diagnosis active 05/20/2016 Atopic dermatitis (disorder) 04800694(S NOMED) Diagnosis active 02/28/2016 Herpes labialis (disorder) 5102938(SN OMED) Diagnosis active 12/20/2015 Atopic dermatitis (disorder) 14669627(S NOMED) Diagnosis active 09/07/2015 Atopic dermatitis (disorder) 90857977(S NOMED) Diagnosis active 05/31/2015 Benign neoplasm of skin of trunk (disorder) 44767986(S NOMED) Diagnosis active 05/30/2015 Contact dermatitis caused by solar radiation (disorder) 80951799(S NOMED) Diagnosis active 01/04/2015 Dermatophytosis of the body (disorder) 841490356( SNOMED) Diagnosis active 10/25/2014 Neoplasm of uncertain behavior of skin (disorder) 52654920(S NOMED) Diagnosis active 05/31/2014 Tinea unguium B35.1(ICD- 10) Diagnosis active 04/23/2019 Tinea corporis B35.4(ICD- 10) Diagnosis active 04/23/2019 Intrinsic (allergic) eczema L20.84(ICD -10) Diagnosis active 04/23/2019 Arthritis (disorder) 2282879(SN OMED) Problem active Increased blood pressure (finding) 56113330(S NOMED) Problem active Hypercholesterolemia (disorder) 16054090(S NOMED) Problem active Intrinsic (allergic) eczema L20.84(ICD -10) Diagnosis active 05/19/2019 Intrinsic (allergic) eczema L20.84(ICD -10) Diagnosis active 06/28/2019 Psoriasis vulgaris L40.0(ICD- 10) Diagnosis active 07/02/2019 Psoriasis vulgaris L40.0(ICD- 10) Diagnosis active 07/05/2019 Psoriasis vulgaris L40.0(ICD- 10) Diagnosis active 07/09/2019 Psoriasis vulgaris L40.0(ICD- 10) Diagnosis active 07/12/2019 Psoriasis vulgaris L40.0(ICD- 10) Diagnosis active 07/16/2019 Psoriasis vulgaris L40.0(ICD- 10) Diagnosis active 07/19/2019 Psoriasis vulgaris L40.0(ICD- 10) Diagnosis active 07/23/2019 Psoriasis vulgaris L40.0(ICD- 10) Diagnosis active 07/30/2019 Psoriasis vulgaris L40.0(ICD- 10) Diagnosis active 08/02/2019 Psoriasis vulgaris L40.0(ICD- 10) Diagnosis active 08/06/2019 Psoriasis vulgaris L40.0(ICD- 10) Diagnosis active 08/11/2019 Intrinsic (allergic) eczema L20.84(ICD -10) Diagnosis active 08/13/2019 Psoriasis vulgaris L40.0(ICD- 10) Diagnosis active 08/13/2019 Psoriasis vulgaris L40.0(ICD- 10) Diagnosis active 08/16/2019 Psoriasis vulgaris L40.0(ICD- 10) Diagnosis active 08/20/2019 Psoriasis vulgaris L40.0(ICD- 10) Diagnosis active 08/23/2019 Psoriasis vulgaris L40.0(ICD- 10) Diagnosis active 08/27/2019 Psoriasis vulgaris L40.0(ICD- 10) Diagnosis active 08/30/2019 Intrinsic (allergic) eczema L20.84(ICD -10) Diagnosis active 09/07/2019 Tinea corporis B35.4(ICD- 10) Diagnosis active 09/07/2019 Psoriasis vulgaris L40.0(ICD- 10) Diagnosis active 09/10/2019 Psoriasis vulgaris L40.0(ICD- 10) Diagnosis active 09/13/2019 Intrinsic (allergic) eczema L20.84(ICD -10) Diagnosis active 12/06/2019 Intrinsic (allergic) eczema L20.84(ICD -10) Diagnosis active 12/10/2019 Intrinsic (allergic) eczema L20.84(ICD -10) Diagnosis active 12/10/2019 Intrinsic (allergic) eczema L20.84(ICD -10) Diagnosis active 12/13/2019 Intrinsic (allergic) eczema L20.84(ICD -10) Diagnosis active 12/17/2019 Intrinsic (allergic) eczema L20.84(ICD -10) Diagnosis active 12/20/2019 Intrinsic (allergic) eczema L20.84(ICD -10) Diagnosis active 12/23/2019 Intrinsic (allergic) eczema L20.84(ICD -10) Diagnosis active 12/27/2019 Psoriasis vulgaris L40.0(ICD- 10) Diagnosis active 12/31/2019 Psoriasis vulgaris L40.0(ICD- 10) Diagnosis active 01/03/2020 Psoriasis vulgaris L40.0(ICD- 10) Diagnosis active 01/07/2020 Psoriasis vulgaris L40.0(ICD- 10) Diagnosis active 01/10/2020 Psoriasis vulgaris L40.0(ICD- 10) Diagnosis active 01/14/2020 Psoriasis vulgaris L40.0(ICD- 10) Diagnosis active 01/17/2020 Psoriasis vulgaris L40.0(ICD- 10) Diagnosis active 01/21/2020 Tinea corporis B35.4(ICD- 10) Diagnosis active 01/21/2020 Intrinsic (allergic) eczema L20.84(ICD -10) Diagnosis active 01/21/2020 Psoriasis vulgaris L40.0(ICD- 10) Diagnosis active 01/24/2020 Psoriasis vulgaris L40.0(ICD- 10) Diagnosis active 01/28/2020 Psoriasis vulgaris L40.0(ICD- 10) Diagnosis active 01/31/2020 Psoriasis vulgaris L40.0(ICD- 10) Diagnosis active 02/04/2020 Psoriasis vulgaris L40.0(ICD- 10) Diagnosis active 02/07/2020 Psoriasis vulgaris L40.0(ICD- 10) Diagnosis active 02/11/2020 Psoriasis vulgaris L40.0(ICD- 10) Diagnosis active 02/14/2020 Psoriasis vulgaris L40.0(ICD- 10) Diagnosis active 02/18/2020 Psoriasis vulgaris L40.0(ICD- 10) Diagnosis active 02/21/2020 Psoriasis vulgaris L40.0(ICD- 10) Diagnosis active 02/25/2020 Tinea corporis B35.4(ICD- 10) Diagnosis active 02/25/2020 Intrinsic (allergic) eczema L20.84(ICD -10) Diagnosis active 02/25/2020 Psoriasis vulgaris L40.0(ICD- 10) Diagnosis active 03/03/2020 Psoriasis vulgaris L40.0(ICD- 10) Diagnosis active 03/06/2020 Psoriasis vulgaris L40.0(ICD- 10) Diagnosis active 03/10/2020 Psoriasis vulgaris L40.0(ICD- 10) Diagnosis active 03/13/2020 Psoriasis vulgaris L40.0(ICD- 10) Diagnosis active 03/17/2020 Psoriasis vulgaris L40.0(ICD- 10) Diagnosis active 03/20/2020 Tinea corporis B35.4(ICD- 10) Diagnosis active 03/21/2020 Psoriasis vulgaris L40.0(ICD- 10) Diagnosis active 03/24/2020 Psoriasis vulgaris L40.0(ICD- 10) Diagnosis active 03/27/2020 Psoriasis vulgaris L40.0(ICD- 10) Diagnosis active 03/31/2020 Psoriasis vulgaris L40.0(ICD- 10) Diagnosis active 04/07/2020 Psoriasis vulgaris L40.0(ICD- 10) Diagnosis active 04/10/2020 Psoriasis vulgaris L40.0(ICD- 10) Diagnosis active 04/14/2020 Psoriasis vulgaris L40.0(ICD- 10) Diagnosis active 04/17/2020 Psoriasis vulgaris L40.0(ICD- 10) Diagnosis active 04/21/2020 Psoriasis vulgaris L40.0(ICD- 10) Diagnosis active 04/24/2020 Psoriasis vulgaris L40.0(ICD- 10) Diagnosis active 04/28/2020 Psoriasis vulgaris L40.0(ICD- 10) Diagnosis active 05/01/2020 Tinea corporis B35.4(ICD- 10) Diagnosis active 05/01/2020 Intrinsic (allergic) eczema L20.84(ICD -10) Diagnosis active 05/01/2020 Psoriasis vulgaris L40.0(ICD- 10) Diagnosis active 05/12/2020 Psoriasis vulgaris L40.0(ICD- 10) Diagnosis active 05/15/2020 Psoriasis vulgaris L40.0(ICD- 10) Diagnosis active 05/22/2020 Psoriasis vulgaris L40.0(ICD- 10) Diagnosis active 05/26/2020 Psoriasis vulgaris L40.0(ICD- 10) Diagnosis active 05/29/2020 Tinea corporis B35.4(ICD- 10) Diagnosis active 05/31/2020 Intrinsic (allergic) eczema L20.84(ICD -10) Diagnosis active 05/31/2020 Psoriasis vulgaris L40.0(ICD- 10) Diagnosis active 06/02/2020 Psoriasis vulgaris L40.0(ICD- 10) Diagnosis active 06/05/2020 Psoriasis vulgaris L40.0(ICD- 10) Diagnosis active 06/09/2020 Psoriasis vulgaris L40.0(ICD- 10) Diagnosis active 06/12/2020 Psoriasis vulgaris L40.0(ICD- 10) Diagnosis active 06/19/2020 Psoriasis vulgaris L40.0(ICD- 10) Diagnosis active 06/26/2020 Psoriasis vulgaris L40.0(ICD- 10) Diagnosis active 06/30/2020 Psoriasis vulgaris L40.0(ICD- 10) Diagnosis active 07/03/2020 Psoriasis vulgaris L40.0(ICD- 10) Diagnosis active 07/07/2020 Psoriasis vulgaris L40.0(ICD- 10) Diagnosis active 07/10/2020 Psoriasis vulgaris L40.0(ICD- 10) Diagnosis active 07/14/2020 Psoriasis vulgaris L40.0(ICD- 10) Diagnosis active 07/17/2020 Intrinsic (allergic) eczema L20.84(ICD -10) Diagnosis active 07/17/2020 Intrinsic (allergic) eczema L20.84(ICD -10) Diagnosis active 07/21/2020 Psoriasis vulgaris L40.0(ICD- 10) Diagnosis active 07/28/2020 Psoriasis vulgaris L40.0(ICD- 10) Diagnosis active 07/31/2020 Psoriasis vulgaris L40.0(ICD- 10) Diagnosis active 08/02/2020 Intrinsic (allergic) eczema L20.84(ICD -10) Diagnosis active 08/02/2020 Dermatitis, unspecified L30.9(ICD- 10) Diagnosis active 08/02/2020 Tinea pedis B35.3(ICD- 10) Diagnosis active 08/02/2020 Psoriasis vulgaris L40.0(ICD- 10) Diagnosis active 08/11/2020 Psoriasis vulgaris L40.0(ICD- 10) Diagnosis active 08/14/2020 Psoriasis vulgaris L40.0(ICD- 10) Diagnosis active 08/18/2020 Psoriasis vulgaris L40.0(ICD- 10) Diagnosis active 08/21/2020 Other follicular cysts of the skin and subcutaneous tissue L72.8(ICD- 10) Diagnosis active 08/21/2020 Intrinsic (allergic) eczema L20.84(ICD -10) Diagnosis active 08/21/2020 Psoriasis vulgaris L40.0(ICD- 10) Diagnosis active 08/25/2020 Intrinsic (allergic) eczema L20.84(ICD -10) Diagnosis active 08/25/2020 Psoriasis vulgaris L40.0(ICD- 10) Diagnosis active 08/28/2020 Psoriasis vulgaris L40.0(ICD- 10) Diagnosis active 09/01/2020 Intrinsic (allergic) eczema L20.84(ICD -10) Diagnosis active 09/04/2020 Psoriasis vulgaris (disorder) 309275872( SNOMED) Diagnosis active 09/08/2020 Atopic dermatitis (disorder) 70493375(S NOMED) Diagnosis active 09/11/2020 Psoriasis vulgaris (disorder) 797124804( SNOMED) Diagnosis active 09/15/2020 Atopic dermatitis (disorder) 08876520(S NOMED) Diagnosis active 09/18/2020 Atopic dermatitis (disorder) 56630214(S NOMED) Diagnosis active 09/25/2020 Follicular cysts of skin and subcutaneous tissue (disorder) 625761483( SNOMED) Diagnosis active 09/27/2020 Tinea pedis (disorder) 9605446(SN OMED) Diagnosis active 10/06/2020 Tinea corporis (disorder) 93551804(S NOMED) Diagnosis active 10/06/2020 Surgical follow-up (finding) 139872205( SNOMED) Diagnosis active 10/09/2020 Atopic dermatitis (disorder) 89279393(S NOMED) Diagnosis active 10/16/2020 Atopic dermatitis (disorder) 80688687(S NOMED) Diagnosis active 10/20/2020 Atopic dermatitis (disorder) 06122087(S NOMED) Diagnosis active 10/23/2020 Atopic dermatitis (disorder) 95440460(S NOMED) Diagnosis active 10/27/2020 Atopic dermatitis (disorder) 13025846(S NOMED) Diagnosis active 10/30/2020 Atopic dermatitis (disorder) 18468842(S NOMED) Diagnosis active 11/03/2020 Atopic dermatitis (disorder) 46941221(S NOMED) Diagnosis active 11/06/2020 Atopic dermatitis (disorder) 34729229(S NOMED) Diagnosis active 11/10/2020 Atopic dermatitis (disorder) 18706663(S NOMED) Diagnosis active 11/13/2020 Atopic dermatitis (disorder) 81960261(S NOMED) Diagnosis active 11/17/2020 Atopic dermatitis (disorder) 76093653(S NOMED) Diagnosis active 11/22/2020 Atopic dermatitis (disorder) 99132109(S NOMED) Diagnosis active 11/24/2020 Atopic dermatitis (disorder) 65264643(S NOMED) Diagnosis active 11/27/2020 Atopic dermatitis (disorder) 19046009(S NOMED) Diagnosis active 12/01/2020 Atopic dermatitis (disorder) 60407550(S NOMED) Diagnosis active 12/04/2020 Atopic dermatitis (disorder) 18374236(S NOMED) Diagnosis active 12/08/2020 Atopic dermatitis (disorder) 42674632(S NOMED) Diagnosis active 12/08/2020 Tinea pedis (disorder) 2546539(SN OMED) Diagnosis active 12/08/2020 Tinea corporis (disorder) 12085209(S NOMED) Diagnosis active 12/08/2020 Atopic dermatitis (disorder) 06472234(S NOMED) Diagnosis active 12/11/2020 Psoriasis vulgaris (disorder) 536764281( SNOMED) Diagnosis active 12/15/2020 Atopic dermatitis (disorder) 68520148(S NOMED) Diagnosis active 12/18/2020 Atopic dermatitis (disorder) 40448017(S NOMED) Diagnosis active 12/22/2020 Atopic dermatitis (disorder) 87284875(S NOMED) Diagnosis active 12/29/2020 Atopic dermatitis (disorder) 30256037(S NOMED) Diagnosis active 01/01/2021 Atopic dermatitis (disorder) 10165062(S NOMED) Diagnosis active 01/05/2021 Atopic dermatitis (disorder) 42167895(S NOMED) Diagnosis active 01/08/2021 Atopic dermatitis (disorder) 90117748(S NOMED) Diagnosis active 01/12/2021 Atopic dermatitis (disorder) 69287796(S NOMED) Diagnosis active 01/15/2021 Atopic dermatitis (disorder) 03112257(S NOMED) Diagnosis active 01/19/2021 Atopic dermatitis (disorder) 36643957(S NOMED) Diagnosis active 01/22/2021 Psoriasis vulgaris (disorder) 348040319( SNOMED) Diagnosis active 01/26/2021 Atopic dermatitis (disorder) 39285279(S NOMED) Diagnosis active 01/29/2021 Itching of skin (finding) 713360573( SNOMED) Diagnosis active 02/02/2021 Atopic dermatitis (disorder) 95046725(S NOMED) Diagnosis active 02/02/2021 Atopic dermatitis (disorder) 55464483(S NOMED) Diagnosis active 02/16/2021 Atopic dermatitis (disorder) 63376442(S NOMED) Diagnosis active 02/19/2021 Atopic dermatitis (disorder) 96098040(S NOMED) Diagnosis active 03/02/2021 Atopic dermatitis (disorder) 67948146(S NOMED) Diagnosis active 03/05/2021 Atopic dermatitis (disorder) 07536717(S NOMED) Diagnosis active 03/09/2021 Atopic dermatitis (disorder) 34958419(S NOMED) Diagnosis active 03/12/2021 Atopic dermatitis (disorder) 10964400(S NOMED) Diagnosis active 03/16/2021 Atopic dermatitis (disorder) 47240427(S NOMED) Diagnosis active 03/19/2021 Atopic dermatitis (disorder) 68655951(S NOMED) Diagnosis active 03/23/2021 Atopic dermatitis (disorder) 89925251(S NOMED) Diagnosis active 03/23/2021 Tinea pedis (disorder) 2302330(SN OMED) Diagnosis active 03/23/2021 Tinea corporis (disorder) 27848126(S NOMED) Diagnosis active 03/23/2021 Itching of skin (finding) 834930452( SNOMED) Diagnosis active 03/23/2021 Atopic dermatitis (disorder) 34642904(S NOMED) Diagnosis active 03/30/2021 Atopic dermatitis (disorder) 88292755(S NOMED) Diagnosis active 04/06/2021 Atopic dermatitis (disorder) 03045791(S NOMED) Diagnosis active 04/20/2021 Atopic dermatitis (disorder) 17150302(S NOMED) Diagnosis active 05/10/2021 Atopic dermatitis (disorder) 86654132(S NOMED) Diagnosis active 05/28/2021 Tinea pedis (disorder) 7853252(SN OMED) Diagnosis active 05/28/2021 Itching of skin (finding) 176159823( SNOMED) Diagnosis active 05/28/2021 Psoriasis vulgaris (disorder) 096172583( SNOMED) Diagnosis active 08/03/2021 Psoriasis vulgaris (disorder) 545010389( SNOMED) Diagnosis active 08/10/2021 Atopic dermatitis (disorder) 57630172(S NOMED) Diagnosis active 08/24/2021 Psoriasis vulgaris (disorder) 635492691( SNOMED) Diagnosis active 08/24/2021 Atopic dermatitis (disorder) 59328132(S NOMED) Diagnosis active 08/31/2021 Atopic dermatitis (disorder) 66998445(S NOMED) Diagnosis active 09/07/2021 Psoriasis vulgaris (disorder) 103728817( SNOMED) Diagnosis active 09/14/2021 Atopic dermatitis (disorder) 36932944(S NOMED) Diagnosis active 09/21/2021 Atopic dermatitis (disorder) 43441124(S NOMED) Diagnosis active 09/28/2021 Atopic dermatitis (disorder) 92214501(S NOMED) Diagnosis active 10/05/2021 Atopic dermatitis (disorder) 61591737(S NOMED) Diagnosis active 10/12/2021 Atopic dermatitis (disorder) 04419776(S NOMED) Diagnosis active 10/19/2021 Atopic dermatitis (disorder) 64351205(S NOMED) Diagnosis active 10/26/2021 Atopic dermatitis (disorder) 05751980(S NOMED) Diagnosis active 10/31/2021 Atopic dermatitis (disorder) 56965844(S NOMED) Diagnosis active 11/20/2021 Atopic dermatitis (disorder) 37917014(S NOMED) Diagnosis active 11/23/2021 Atopic dermatitis (disorder) 59029221(S NOMED) Diagnosis active 11/30/2021 Atopic dermatitis (disorder) 27330295(S NOMED) Diagnosis active 12/07/2021 Atopic dermatitis (disorder) 95139560(S NOMED) Diagnosis active 12/14/2021 Atopic dermatitis (disorder) 98487292(S NOMED) Diagnosis active 12/21/2021 Atopic dermatitis (disorder) 31363944(S NOMED) Diagnosis active 12/28/2021 Atopic dermatitis (disorder) 52033185(S NOMED) Diagnosis active 12/31/2021 Atopic dermatitis (disorder) 09939097(S NOMED) Diagnosis active 01/04/2022 Atopic dermatitis (disorder) 28722897(S NOMED) Diagnosis active 01/11/2022 Atopic dermatitis (disorder) 12265624(S NOMED) Diagnosis active 01/18/2022 Atrial fibrillation (disorder) 95431552(S NOMED) Problem active Secondary restless legs syndrome (disorder) 229754648( SNOMED) Problem active Atopic dermatitis (disorder) 14903632(S NOMED) Diagnosis active 02/01/2022 Atopic dermatitis (disorder) 12324320(S NOMED) Diagnosis active 02/08/2022 Atopic dermatitis (disorder) 39686073(S NOMED) Diagnosis active 02/15/2022 Atopic dermatitis (disorder) 39977518(S NOMED) Diagnosis active 02/22/2022 Atopic dermatitis (disorder) 27558739(S NOMED) Diagnosis active 03/01/2022 Atopic dermatitis (disorder) 03642409(S NOMED) Diagnosis active 2022 Atopic dermatitis (disorder) 72248355(S NOMED) Diagnosis active 03/15/2022 Atopic dermatitis (disorder) 52907044(S NOMED) Diagnosis active 03/22/2022 Atopic dermatitis (disorder) 00045185(S NOMED) Diagnosis active 03/29/2022 Atopic dermatitis (disorder) 58454452(S NOMED) Diagnosis active 04/03/2022 Tinea pedis (disorder) 5603876(SN OMED) Diagnosis active 04/03/2022 Atopic dermatitis (disorder) 95268225(S NOMED) Diagnosis active 04/05/2022 Atopic dermatitis (disorder) 31050532(S NOMED) Diagnosis active 04/12/2022 Atopic dermatitis (disorder) 20581002(S NOMED) Diagnosis active 04/19/2022 Atopic dermatitis (disorder) 98179943(S NOMED) Diagnosis active 04/26/2022 Atopic dermatitis (disorder) 97233702(S NOMED) Diagnosis active 05/03/2022 Atopic dermatitis (disorder) 76688197(S NOMED) Diagnosis active 05/31/2022 Eczema (disorder) 88039412(S NOMED) Problem active Psoriasis (disorder) 4171328(SN OMED) Problem active Atopic dermatitis (disorder) 43539474(S NOMED) Diagnosis active 06/07/2022 Atopic dermatitis (disorder) 99862303(S NOMED) Diagnosis active 06/14/2022 Atopic dermatitis (disorder) 91782921(S NOMED) Diagnosis active 06/21/2022 Atopic dermatitis (disorder) 04237270(S NOMED) Diagnosis active 06/28/2022 Atopic dermatitis (disorder) 71308148(S NOMED) Diagnosis active 07/05/2022 Atopic dermatitis (disorder) 15028547(S NOMED) Diagnosis active 07/12/2022 Atopic dermatitis (disorder) 62074749(S NOMED) Diagnosis active 07/19/2022 Atopic dermatitis (disorder) 74079497(S NOMED) Diagnosis active 07/26/2022 Atopic dermatitis (disorder) 54994870(S NOMED) Diagnosis active 08/02/2022 Atopic dermatitis (disorder) 30956229(S NOMED) Diagnosis active 08/05/2022 Tinea pedis (disorder) 3587283(SN OMED) Diagnosis active 08/05/2022 Atopic dermatitis (disorder) 44102030(S NOMED) Diagnosis active 08/09/2022 Atopic dermatitis (disorder) 41808508(S NOMED) Diagnosis active 08/13/2022 Atopic dermatitis (disorder) 91776659(S NOMED) Diagnosis active 08/16/2022 Atopic dermatitis (disorder) 45221820(S NOMED) Diagnosis active 08/19/2022 Atopic dermatitis (disorder) 13509108(S NOMED) Diagnosis active 08/30/2022 Atopic dermatitis (disorder) 13064407(S NOMED) Diagnosis active 08/30/2022 Atopic dermatitis (disorder) 85376129(S NOMED) Diagnosis active 09/02/2022 Atopic dermatitis (disorder) 99053985(S NOMED) Diagnosis active 09/06/2022 Atopic dermatitis (disorder) 14457966(S NOMED) Diagnosis active 09/09/2022 Atopic dermatitis (disorder) 83306003(S NOMED) Diagnosis active 09/13/2022 Atopic dermatitis (disorder) 24866056(S NOMED) Diagnosis active 09/16/2022 Atopic dermatitis (disorder) 82818423(S NOMED) Diagnosis active 09/20/2022 Atopic dermatitis (disorder) 80101119(S NOMED) Diagnosis active 09/23/2022 Atopic dermatitis (disorder) 05745073(S NOMED) Diagnosis active 09/27/2022 Atopic dermatitis (disorder) 64807423(S NOMED) Diagnosis active 10/18/2022 Atopic dermatitis (disorder) 56958765(S NOMED) Diagnosis active 10/18/2022 Neoplasm of uncertain behavior of skin (disorder) 30630736(S NOMED) Diagnosis active 10/21/2022 Atopic dermatitis (disorder) 21410028(S NOMED) Diagnosis active 10/25/2022 Atopic dermatitis (disorder) 40016046(S NOMED) Diagnosis active 10/28/2022 Atopic dermatitis (disorder) 20453501(S NOMED) Diagnosis active 11/01/2022 Atopic dermatitis (disorder) 00195054(S NOMED) Diagnosis active 11/04/2022 Atopic dermatitis (disorder) 00415020(S NOMED) Diagnosis active 11/08/2022 Atopic dermatitis (disorder) 93091268(S NOMED) Diagnosis active 11/11/2022 Atopic dermatitis (disorder) 18846296(S NOMED) Diagnosis active 11/15/2022 Atopic dermatitis (disorder) 75428777(S NOMED) Diagnosis active 11/19/2022 Atopic dermatitis (disorder) 26942010(S NOMED) Diagnosis active 11/25/2022 Atopic dermatitis (disorder) 97207819(S NOMED) Diagnosis active 11/29/2022 Atopic dermatitis (disorder) 00968842(S NOMED) Diagnosis active 12/02/2022 Atopic dermatitis (disorder) 62510041(S NOMED) Diagnosis active 12/06/2022 Atopic dermatitis (disorder) 57780864(S NOMED) Diagnosis active 12/16/2022 Atopic dermatitis (disorder) 23893455(S NOMED) Diagnosis active 12/20/2022 Atopic dermatitis (disorder) 94942816(S NOMED) Diagnosis active 12/27/2022 Atopic dermatitis (disorder) 13103695(S NOMED) Diagnosis active 12/13/2022 Atopic dermatitis (disorder) 30806223(S NOMED) Diagnosis active 01/06/2023 Atopic dermatitis (disorder) 45171463(S NOMED) Diagnosis active 01/10/2023 Neoplasm of uncertain behavior of skin (disorder) 45766729(S NOMED) Diagnosis active 01/20/2023 Atopic dermatitis (disorder) 40685477(S NOMED) Diagnosis active 01/20/2023 Atopic dermatitis (disorder) 90406930(S NOMED) Diagnosis active 01/24/2023 Atopic dermatitis (disorder) 33355713(S NOMED) Diagnosis active 01/31/2023 Atopic dermatitis (disorder) 77554187(S NOMED) Diagnosis active 02/03/2023 Atopic dermatitis (disorder) 69163330(S NOMED) Diagnosis active 02/10/2023 Atopic dermatitis (disorder) 32187280(S NOMED) Diagnosis active 02/07/2023 Atopic dermatitis (disorder) 06287676(S NOMED) Diagnosis active 02/14/2023 Atopic dermatitis (disorder) 27448955(S NOMED) Diagnosis active 02/17/2023 Atopic dermatitis (disorder) 04412407(S NOMED) Diagnosis active 02/20/2023 Atopic dermatitis (disorder) 04256146(S NOMED) Diagnosis active 01/17/2023 Atopic dermatitis (disorder) 32677038(S NOMED) Diagnosis active 03/03/2023 Atopic dermatitis (disorder) 30108731(S NOMED) Diagnosis active 02/28/2023 Basal cell carcinoma of face (disorder) 404927022( SNOMED) Diagnosis active 03/05/2023 Neoplasm of uncertain behavior of skin (disorder) 23923102(S NOMED) Diagnosis active 03/05/2023 Basal cell carcinoma of face (disorder) 344663313( SNOMED) Diagnosis active 03/18/2023 Surgical follow-up (finding) 450519718( SNOMED) Diagnosis active 03/25/2023 Atopic dermatitis (disorder) 15567304(S NOMED) Diagnosis active 03/28/2023 Atopic dermatitis (disorder) 83451643(S NOMED) Diagnosis active 03/31/2023 Atopic dermatitis (disorder) 60241805(S NOMED) Diagnosis active 04/04/2023 Atopic dermatitis (disorder) 52295882(S NOMED) Diagnosis active 04/07/2023 Atopic dermatitis (disorder) 63750286(S NOMED) Diagnosis active 04/11/2023 Atopic dermatitis (disorder) 55792137(S NOMED) Diagnosis active 04/14/2023 Atopic dermatitis (disorder) 83037559(S NOMED) Diagnosis active 04/18/2023 Atopic dermatitis (disorder) 65203809(S NOMED) Diagnosis active 04/25/2023 Atopic dermatitis (disorder) 31503541(S NOMED) Diagnosis active 04/28/2023 Atopic dermatitis (disorder) 59369252(S NOMED) Diagnosis active 01/03/2023 Atopic dermatitis (disorder) 85170363(S NOMED) Diagnosis active 05/02/2023 Atopic dermatitis (disorder) 71096177(S NOMED) Diagnosis active 05/05/2023 Atopic dermatitis (disorder) 26164806(S NOMED) Diagnosis active 05/09/2023 Atopic dermatitis (disorder) 61528948(S NOMED) Diagnosis active 05/12/2023 Atopic dermatitis (disorder) 47369707(S NOMED) Diagnosis active 05/14/2023 Atopic dermatitis (disorder) 13729895(S NOMED) Diagnosis active 05/26/2023 Atopic dermatitis (disorder) 68384571(S NOMED) Diagnosis active 06/02/2023 Atopic dermatitis (disorder) 07360895(S NOMED) Diagnosis active 05/30/2023 Atopic dermatitis (disorder) 30482901(S NOMED) Diagnosis active 06/06/2023 Atopic dermatitis (disorder) 77653924(S NOMED) Diagnosis active 05/23/2023 Atopic dermatitis (disorder) 43182864(S NOMED) Diagnosis active 06/09/2023 Atopic dermatitis (disorder) 85220862(S NOMED) Diagnosis active 06/13/2023 Atopic dermatitis (disorder) 13935899(S NOMED) Diagnosis active 06/17/2023 Atopic dermatitis (disorder) 69442490(S NOMED) Diagnosis active 06/20/2023 Atopic dermatitis (disorder) 74448467(S NOMED) Diagnosis active 06/27/2023 Atopic dermatitis (disorder) 32971673(S NOMED) Diagnosis active 06/30/2023 Hemangioma of skin and subcutaneous tissue (disorder) 720052091( SNOMED) Diagnosis active 07/07/2023 Seborrheic keratosis (disorder) 380057553( SNOMED) Diagnosis active 07/07/2023 Disorder of pigmentation (disorder) 424298036( SNOMED) Diagnosis active 07/07/2023 Melanocytic nevus of trunk (disorder) 979521776( SNOMED) Diagnosis active 07/07/2023 Atopic dermatitis (disorder) 29513095(S NOMED) Diagnosis active 07/07/2023 Patient encounter status (finding) 029106250( SNOMED) Diagnosis active 07/07/2023 History of malignant neoplasm of skin (situation) 337879376( SNOMED) Diagnosis active 07/07/2023 Basal cell carcinoma of skin (disorder) 868584331( SNOMED) Problem active Atopic dermatitis (disorder) 08250466(S NOMED) Diagnosis active 07/04/2023 Atopic dermatitis (disorder) 37273682(S NOMED) Diagnosis active 07/11/2023 Atopic dermatitis (disorder) 38220056(S NOMED) Diagnosis active 07/18/2023 Atopic dermatitis (disorder) 41378329(S NOMED) Diagnosis active 07/25/2023 Atopic dermatitis (disorder) 71416437(S NOMED) Diagnosis active 08/08/2023 Atopic dermatitis (disorder) 76190157(S NOMED) Diagnosis active 08/15/2023 Atopic dermatitis (disorder) 72769361(S NOMED) Diagnosis active 08/22/2023 Atopic dermatitis (disorder) 61671737(S NOMED) Diagnosis active 08/29/2023 Atopic dermatitis (disorder) 59827716(S NOMED) Diagnosis active 08/01/2023 Atopic dermatitis (disorder) 03831378(S NOMED) Diagnosis active 09/05/2023 Atopic dermatitis (disorder) 19339552(S NOMED) Diagnosis active 09/26/2023 Atopic dermatitis (disorder) 54631767(S NOMED) Diagnosis active 10/03/2023 Atopic dermatitis (disorder) 89317847(S NOMED) Diagnosis active 10/10/2023 Atopic dermatitis (disorder) 36036048(S NOMED) Diagnosis active 10/17/2023 Atopic dermatitis (disorder) 63011443(S NOMED) Diagnosis active 10/24/2023 Atopic dermatitis (disorder) 87235158(S NOMED) Diagnosis active 10/31/2023 Atopic dermatitis (disorder) 89215341(S NOMED) Diagnosis active 11/07/2023 Atopic dermatitis (disorder) 32980468(S NOMED) Diagnosis active 11/14/2023 Atopic dermatitis (disorder) 26738766(S NOMED) Diagnosis active 11/21/2023 Atopic dermatitis (disorder) 90855500(S NOMED) Diagnosis active 12/05/2023 Atopic dermatitis (disorder) 49890123(S NOMED) Diagnosis active 12/12/2023 Atopic dermatitis (disorder) 16113412(S NOMED) Diagnosis active 12/19/2023 Hemangioma of skin and subcutaneous tissue (disorder) 621190494( SNOMED) Diagnosis active 12/29/2023 Seborrheic keratosis (disorder) 115185493( SNOMED) Diagnosis active 12/29/2023 Disorder of pigmentation (disorder) 718573660( SNOMED) Diagnosis active 12/29/2023 Melanocytic nevus of trunk (disorder) 127035714( SNOMED) Diagnosis active 12/29/2023 Atopic dermatitis (disorder) 19171852(S NOMED) Diagnosis active 12/29/2023 Seborrheic dermatitis (disorder) 79620340(S NOMED) Diagnosis active 12/29/2023 Patient encounter status (finding) 062489422( SNOMED) Diagnosis active 12/29/2023 History of malignant neoplasm of skin (situation) 940608858( SNOMED) Diagnosis active 12/29/2023 Atopic dermatitis (disorder) 75295643(S NOMED) Diagnosis active 01/30/2024 Localized edema (finding) 525925959( SNOMED) Diagnosis active 03/24/2024 Atopic dermatitis (disorder) 54007992(S NOMED) Diagnosis active 04/23/2024 Atopic dermatitis (disorder) 18257878(S NOMED) Diagnosis active 05/18/2024 Atopic dermatitis (disorder) 32119381(S NOMED) Diagnosis active 05/24/2024 Atopic dermatitis (disorder) 59308876(S NOMED) Diagnosis active 05/26/2024 Atopic dermatitis (disorder) 10880319(S NOMED) Diagnosis active 05/28/2024 Atopic dermatitis (disorder) 40195510(S NOMED) Diagnosis active 06/02/2024 Atopic dermatitis (disorder) 97117243(S NOMED) Diagnosis active 06/11/2024 Atopic dermatitis (disorder) 28818094(S NOMED) Diagnosis active 06/14/2024 Atopic dermatitis (disorder) 51086178(S NOMED) Diagnosis active 06/18/2024 Atopic dermatitis (disorder) 41098422(S NOMED) Diagnosis active 06/25/2024 Atopic dermatitis (disorder) 52381160(S NOMED) Diagnosis active 06/28/2024 Atopic dermatitis (disorder) 36114995(S NOMED) Diagnosis active 07/02/2024 Atopic dermatitis (disorder) 42836475(S NOMED) Diagnosis active 07/05/2024 Atopic dermatitis (disorder) 61643545(S NOMED) Diagnosis active 07/09/2024 Atopic dermatitis (disorder) 66120672(S NOMED) Diagnosis active 07/14/2024 Atopic dermatitis (disorder) 68149395(S NOMED) Diagnosis active 07/16/2024 Atopic dermatitis (disorder) 53773599(S NOMED) Diagnosis active 07/19/2024 Disorder of pigmentation (disorder) 413357185( SNOMED) Diagnosis active 07/19/2024 Atopic dermatitis (disorder) 86572217(S NOMED) Diagnosis active 07/21/2024 Atopic dermatitis (disorder) 04091007(S NOMED) Diagnosis active 08/02/2024 Atopic dermatitis (disorder) 75299532(S NOMED) Diagnosis active 07/30/2024 Atopic dermatitis (disorder) 82350966(S NOMED) Diagnosis active 08/11/2024 Atopic dermatitis (disorder) 08489605(S NOMED) Diagnosis active 08/06/2024 Atopic dermatitis (disorder) 00348048(S NOMED) Diagnosis active 08/18/2024 Hemangioma of skin and subcutaneous tissue (disorder) 214064770( SNOMED) Diagnosis active 08/25/2024 Seborrheic keratosis (disorder) 872301949( SNOMED) Diagnosis active 08/25/2024 Disorder of pigmentation (disorder) 612086503( SNOMED) Diagnosis active 08/25/2024 Melanocytic nevus of trunk (disorder) 049564732( SNOMED) Diagnosis active 08/25/2024 Atopic dermatitis (disorder) 87206208(S NOMED) Diagnosis active 08/25/2024 Patient encounter status (finding) 818899352( SNOMED) Diagnosis active 08/25/2024 Diverticulitis (morphologic abnormality) 83329219(S NOMED) Problem active Hypothyroidism (disorder) 83923680(S NOMED) Problem active Malignant tumor of thyroid gland (disorder) 469341242( SNOMED) Problem active Atopic dermatitis (disorder) 91010791(S NOMED) Diagnosis active 08/25/2024 Atopic dermatitis (disorder) 82644125(S NOMED) Diagnosis active 08/23/2024 Atopic dermatitis (disorder) 40693491(S NOMED) Diagnosis active 08/27/2024 Atopic dermatitis (disorder) 87065725(S NOMED) Diagnosis active 09/01/2024 Atopic dermatitis (disorder) 62040045(S NOMED) Diagnosis active 09/03/2024 Atopic dermatitis (disorder) 96242783(S NOMED) Diagnosis active 09/10/2024 Atopic dermatitis (disorder) 07238984(S NOMED) Diagnosis active 09/15/2024 Atopic dermatitis (disorder) 16059718(S NOMED) Diagnosis active 09/17/2024 Atopic dermatitis (disorder) 97390366(S NOMED) Diagnosis active 09/22/2024 Atopic dermatitis (disorder) 91007853(S NOMED) Diagnosis active 09/24/2024 Atopic dermatitis (disorder) 79307417(S NOMED) Diagnosis active 09/27/2024 Atopic dermatitis (disorder) 06332952(S NOMED) Diagnosis active 09/29/2024 Atopic dermatitis (disorder) 81188660(S NOMED) Diagnosis active 10/01/2024 Atopic dermatitis (disorder) 17741653(S NOMED) Diagnosis active 10/08/2024 Atopic dermatitis (disorder) 84410299(S NOMED) Diagnosis active 10/11/2024 Atopic dermatitis (disorder) 07385853(S NOMED) Diagnosis active 10/13/2024 Atopic dermatitis (disorder) 36462535(S NOMED) Diagnosis active 10/20/2024 Atopic dermatitis (disorder) 11076877(S NOMED) Diagnosis active 10/25/2024 Atopic dermatitis (disorder) 19887786(S NOMED) Diagnosis active 10/27/2024 Atopic dermatitis (disorder) 50127093(S NOMED) Diagnosis active 10/29/2024 Atopic dermatitis (disorder) 97741933(S NOMED) Diagnosis active 11/03/2024 Atopic dermatitis (disorder) 97437741(S NOMED) Diagnosis active 11/05/2024 Atopic dermatitis (disorder) 77738091(S NOMED) Diagnosis active 11/08/2024 Atopic dermatitis (disorder) 05508506(S NOMED) Diagnosis active 11/12/2024 Atopic dermatitis (disorder) 92976025(S NOMED) Diagnosis active 11/19/2024 Atopic dermatitis (disorder) 69497947(S NOMED) Diagnosis active 11/24/2024 Neoplasm of uncertain behavior of skin (disorder) 10814008(S NOMED) Diagnosis active 11/29/2024 Atopic dermatitis (disorder) 91540778(S NOMED) Diagnosis active 11/29/2024 Atopic dermatitis (disorder) 18282579(S NOMED) Diagnosis active 11/29/2024 Atopic dermatitis (disorder) 83845169(S NOMED) Diagnosis active 11/26/2024 Atopic dermatitis (disorder) 52701195(S NOMED) Diagnosis active 12/03/2024 Atopic dermatitis (disorder) 52885767(S NOMED) Diagnosis active 12/01/2024 Atopic dermatitis (disorder) 86635826(S NOMED) Diagnosis active 12/08/2024 Atopic dermatitis (disorder) 21532120(S NOMED) Diagnosis active 12/10/2024 Atopic dermatitis (disorder) 67843175(S NOMED) Diagnosis active 12/17/2024 Atopic dermatitis (disorder) 73940850(S NOMED) Diagnosis active 12/22/2024 Atopic dermatitis (disorder) 22924918(S NOMED) Diagnosis active 12/27/2024 Atopic dermatitis (disorder) 56393682(S NOMED) Diagnosis active 12/29/2024 Atopic dermatitis (disorder) 62900293(S NOMED) Diagnosis active 12/31/2024 Atopic dermatitis (disorder) 07207146(S NOMED) Diagnosis active 01/03/2025 Atopic dermatitis (disorder) 91084507(S NOMED) Diagnosis active 01/05/2025 Atopic dermatitis (disorder) 15080943(S NOMED) Diagnosis active 01/07/2025 Atopic dermatitis (disorder) 99743782(S NOMED) Diagnosis active 01/19/2025 Atopic dermatitis (disorder) 19936032(S NOMED) Diagnosis active 01/21/2025 Atopic dermatitis (disorder) 57299151(S NOMED) Diagnosis active 01/26/2025 Atopic dermatitis (disorder) 11923156(S NOMED) Diagnosis active 01/31/2025 Atopic dermatitis (disorder) 62251149(S NOMED) Diagnosis active 02/02/2025 Atopic dermatitis (disorder) 34593192(S NOMED) Diagnosis active 02/11/2025 Atopic dermatitis (disorder) 40191754(S NOMED) Diagnosis active 02/14/2025 Atopic dermatitis (disorder) 05957618(S NOMED) Diagnosis active 02/15/2025 Atopic dermatitis (disorder) 22808740(S NOMED) Diagnosis active 02/16/2025 Atopic dermatitis (disorder) 44635487(S NOMED) Diagnosis active 02/18/2025 Atopic dermatitis (disorder) 19110766(S NOMED) Diagnosis active 02/22/2025 Atopic dermatitis (disorder) 01891386(S NOMED) Diagnosis active 02/25/2025 Atopic dermatitis (disorder) 61515442(S NOMED) Diagnosis active 02/28/2025 Atopic dermatitis (disorder) 40469616(S NOMED) Diagnosis active 03/04/2025 Atopic dermatitis (disorder) 55483452(S NOMED) Diagnosis active 03/07/2025 Atopic dermatitis (disorder) 86141479(S NOMED) Diagnosis active 03/11/2025 Atopic dermatitis (disorder) 96986047(S NOMED) Diagnosis active 03/14/2025 Atopic dermatitis (disorder) 88052845(S NOMED) Diagnosis active 03/16/2025 Atopic dermatitis (disorder) 11855500(S NOMED) Diagnosis active 03/18/2025 Atopic dermatitis (disorder) 41982021(S NOMED) Diagnosis active 03/21/2025 Atopic dermatitis (disorder) 00186259(S NOMED) Diagnosis active 03/25/2025 Atopic dermatitis (disorder) 33897396(S NOMED) Diagnosis active 03/28/2025 Atopic dermatitis (disorder) 48146697(S NOMED) Diagnosis active 03/30/2025 Atopic dermatitis (disorder) 10949841(S NOMED) Diagnosis active 04/01/2025 Atopic dermatitis (disorder) 76961211(S NOMED) Diagnosis active 04/25/2025 Atopic dermatitis (disorder) 33546622(S NOMED) Diagnosis active 04/27/2025 Disorder of skin (disorder) 65073107(S NOMED) Diagnosis active 04/27/2025 Atopic dermatitis (disorder) 06080394(S NOMED) Diagnosis active 04/29/2025 Atopic dermatitis (disorder) 26160441(S NOMED) Diagnosis active 05/02/2025 Atopic dermatitis (disorder) 23780000(S NOMED) Diagnosis active 05/04/2025 Atopic dermatitis (disorder) 45209521(S NOMED) Diagnosis active 05/09/2025 Atopic dermatitis (disorder) 39513439(S NOMED) Diagnosis active 05/06/2025 Atopic dermatitis (disorder) 34522798(S NOMED) Diagnosis active 05/11/2025 Atopic dermatitis (disorder) 83350082(S NOMED) Diagnosis active 05/13/2025 Atopic dermatitis (disorder) 08349552(S NOMED) Diagnosis active 05/18/2025 Atopic dermatitis (disorder) 68476788(S NOMED) Diagnosis active 05/23/2025 Atopic dermatitis (disorder) 77165163(S NOMED) Diagnosis active 05/25/2025 Atopic dermatitis (disorder) 48419247(S NOMED) Diagnosis active 05/30/2025 Results No data Encounters Service provided at [address], [address], [place], [place] [address]. Office phonenumber is [phone]. Office fax number is [phone]. Encounter Diagnosis Location Date / Time Type Disc harge Status Eczema (L20.89) [place] 05/30/2025 16:30:00 UTC NI Reason For Referral No data Procedures Procedure [...] thyroidectomy (procedure) Tonsillectomy (procedure) Total thyroidectomy (procedure) Tonsillectomy (procedure) [...] Skin Type - II; Treatment Number - 337; Render Post-care in the Note - no; Total Body Energy - 880mj; Comments on Previous Treatment - Room 3, no fans.; Protocol - Photochemotherapy: Mineral Oil and NBUVB; Total Body Time - 4min; Total Treatment Time - 4 min; Location (Body Touches will Override) - full body. Plan of Care Code Detail Instructions 611080 betamethasone diprop ionate 0.05 % topical ointment Apply AM and PM scalp as needed for itch 866589 ketoconazole 2 % shampoo Apply t o damp hair, lather leave in 5 minutes and rinse out. Use when shampooing 891873 betamethasone diprop ionate 0.05 % lotion Apply AM and PM scalp and upper back itch as needed 684702 ketoconazole 2 % shampoo Apply t o damp hair, lather leave in 5 minutes and rinse out. Use when shampooing 514737 ketoconazole 2 % shampoo Apply t o damp hair, lather leave in 5 minutes and rinse out. Use when shampooing 686887 betamethasone valerate 0.1 % lot ion Apply AM and PM scalp for itch 952109 betamethasone diprop ionate 0.05 % lotion Apply Am and PM scalp itch as needed 665940 hydroxyzine HCl 10 mg tablet Duong e one pill po at supper and if needed bedtime prn itch. Do not drive or operate heavy machinery 497907 fluocinonide 0.05 % topical solu tion Apply 5-10 drops AM and PM scalp and massage in 018381 mupirocin 2 % topical ointment A pply AM and PM right cheek for 10 days crust/scab 547419 ketoconazole 2 % shampoo Apply t o damp hair, lather leave in 5 minutes and rinse out. Use when shampooing 055371 clobetasol 0.05 % topical cream Apply AM and PM rash buttocks and left knee 525517 clobetasol 0.05 % scalp solution Apply 5-10 drops to scalp itchy area and massage in 211832 clobetasol 0.05 % scalp solution Apply 5-10 drops to scalp itchy area and massage in 366623 halobetasol propiona te 0.05 % topical cream Apply AM and PM eczema left hand and foot for 2 weeks when needed. Never use face groin or underarms 005800 ciclopirox 0.77 % topical cream Apply AM and PM to tops sides bottoms of left foot and between toes for 4 weeks 423927 clobetasol 0.05 % topical cream Apply AM and PM rash buttocks and left knee 310467 ketoconazole 2 % topical cream A pply AM and PM to top, side, bottom of left foot and between toes for 4 weeks 361278 ciclopirox 0.77 % topical cream Apply AM and PM to tops sides bottoms of left foot and between toes for 4 weeks 511957 ciclopirox 0.77 % topical cream Apply AM and PM to tops sides bottoms of left foot and between toes for 4 weeks 576555 clobetasol 0.05 % topical cream Apply AM and PM rash buttocks and left knee 306275 clobetasol 0.05 % topical cream Apply AM and PM rash buttocks and left knee 7922045 Sernivo 0.05 % topical spray wit h pump Apply AM and PM scalp and massage in 405764 clobetasol 0.05 % scalp solution Apply 5-10 drops to scalp itchy area and massage in 523965 ciclopirox 0.77 % topical cream Apply AM and PM to tops, sides, bottom of feet, between toes for 4 weeks. 937175 griseofulvin microsize 500 mg ta blet Take one PO QD with food and milk 379925 griseofulvin microsize 500 mg ta blet Take one PO QD with food and milk 661011 mupirocin 2 % topical ointment A pply to surgical site on forehead twice a day x 7-14 days. 724161 mupirocin 2 % topical ointment A pply to surgical site on forehead twice a day x 7-14 days. 9462790 DermOtic Oil 0.01 % ear drops Ap ply 2-4 drops right ear for 2 weeks 8220848 DermOtic Oil 0.01 % ear drops Ap ply 2-4 drops right ear for 2 weeks 5275072 DermOtic Oil 0.01 % ear drops Ap ply 2-4 drops right ear for 2 weeks 359586 clobetasol 0.05 % topical cream Apply AM and PM rash buttocks and left knee 900926 clobetasol 0.05 % topical cream APPLY AM AND PM ECZEMA LOWER LEGS FOR UP TO 2 WEEKS WHEN NEEDED 449440 terbinafine HCl 250 mg tablet Ta ke one po qd 649189 terbinafine HCl 250 mg tablet Ta ke one po QD. Do not drink alcohol with this medication 758075 terbinafine HCl 250 mg tablet Ta ke one po QD. Do not drink alcohol with this medication 684282 ciclopirox 0.77 % topical cream Apply AM and PM left leg and buttocks for 4 weeks 163855 terbinafine HCl 250 mg tablet Ta ke one po QD. Do not drink alcohol with this medication 376119 ciclopirox 0.77 % topical cream Apply AM and PM tinea left lower leg for 4 weeks until clear 935285 clobetasol 0.05 % topical cream APPLY AM AND PM ECZEMA LOWER LEGS FOR UP TO 2 WEEKS WHEN NEEDED 220031 terbinafine HCl 250 mg tablet Ta ke one tablet by mouth once daily. 842579 griseofulvin microsize 500 mg ta blet Take one pill by mouth daily with food and milk. 908006 griseofulvin microsize 500 mg ta blet Take one PO QD with food and milk 897916 ciclopirox 0.77 % topical cream Apply AM and PM to tinea buttocks for 4 weeks 095079 griseofulvin microsize 500 mg ta blet Take one po qd with food and milk 651215 clobetasol 0.05 % topical cream APPLY AM AND PM ECZEMA BUTTOCKS FOR UP TO 2 WEEKS WHEN NEEDED 215196 clobetasol 0.05 % topical cream APPLY AM AND PM ECZEMA BACK AND BUTTOCKS FOR UP TO 2 WEEKS WHEN NEEDED 782680 betamethasone diprop ionate 0.05 % lotion Apply 5-10 drops once to twice daily to scalp massage into scalp 380380 clobetasol 0.05 % topical cream Apply am and pm eczema back buttocks 706986 betamethasone diprop ionate 0.05 % topical cream Apply am and pm dry patches upper back and buttocks Instructions No Data Social History Code Activity Start Date End Date [id number] (SNOMED) Never smoker Sex Male Sexual orientation Unspecified Gender identity Unspecified Vital Signs No data Insurances Coverage Status Coverage Type Relationship to Subscriber Member Identifier Subscriber Identifier Group Identifier Payer Identifier Inactive 1 Self [id number] Inactive Self [id number] Inactive Self [id number] Active Self [id number] [employer]AC[employer] Inactive Self [id number] Inactive 2 Self [id number] Inactive Self [id number]
--- OUTSIDE RECORDS SUMMARY | 2025-06-03 17:02 | XMS_ITS | Encounter Summary ---
Author Organization [facility] Address [address] [place] [address] Phone Care Team Providers Care Catering Chef Name Role Phone Bhakti Reyes MD Primary Care Provider [phone] Encounter Details Date Type Department Care Team (Late st Contact Info) Description 01/11/2025 Procedure Pass [facility], Ct Scan - [address] [address] Social History Tobacco Use Types Packs/Day Years [...] 01/12/2025 1:34 AM Harjinder Ingram RN * [place] Suicide Severity Rating Scale (Screener/Recent Self-Report) Question [...] on filedocumented in this encounter Care Teams Catering Chef Relationship Specialty Start Date End Date Bhakti Reyes MD [address] [place] [id number] PCP - General Internal Medicine 07/11/23 documented as of this encounter Additional Source Comments The information contained in this document represents components of the legal health record. It is not the complete legal health record.[facility]
--- OUTSIDE RECORDS SUMMARY | 2025-06-03 17:02 | XMS_ITS ---
Author Name Xander Dowling Address Unknown Organization [facility] Team Providers [employer] Infrastructure [employer] Architect Name Role Phone Unavailable Primary Care Physician Unavailab le History Of Present Illness No Data Medications Medication Generic Name RxNorm Strength Strength Unit Route Dose Dose Form Frequency Date Started Date Ended Status Indication Sig betamethaso ne dipropionat e betameth asone dipropio bennett 219498 0.05 % Topica l lotio n 07/19/19 25 suspend ed Appl y Am and PM scal p itch as need ed betamethaso ne dipropionat e betameth asone dipropio bennett 843226 0.05 % Topica l lotio n 02/16/20 25 suspend ed Appl y AM and PM scal p and uppe r back itch as need ed betamethaso ne dipropionat e betameth asone dipropio bennett 735407 0.05 % Topica l ointm ent 03/14/20 25 active Appl y AM and PM scal p as need ed for itch betamethaso ne valerate betameth asone valerate 0.1 % Topica l apply thin layer to skin lotio n as needed 07/20/19 25 suspend ed Appl y AM and PM scal p for itch ciclopirox ciclopir ox 070498 0.77 % Topica l cream Bid 09/07/19 20 suspend ed Appl y AM and PM to bonifacio a butt ocks for 4 week s ciclopirox ciclopir ox 539395 0.77 % Topica l cream BID 03/23/20 21 suspend ed Appl y AM and PM to tops , side s, gulshan om of feet , betw een toes for 4 week s. clobetasol clobetas ol 952004 0.05 % Topica l cream BID 05/19/20 19 suspend ed ECZEMA APPL Y AM AND PM ECZE MA BACK AND BUTT OCKS FOR UP TO 2 WEEK S WHEN NEED ED fluocinonid e fluocino nide 609950 0.05 % Topica l apply thin layer to skin solut ion as needed 05/18/20 24 active Appl y 5-10 drop s AM and PM scal p and mass age in halobetasol propionate halobeta jaiden propiona te 773454 0.05 % Topica l cream BID 08/31/19 23 suspend ed Appl y AM and PM ecze ma left hand and foot for 2 week s when need ed. Neve r use face groi n or unde rarm s ketoconazol e ketocona zole 339385 2 % Topica l cream 04/04/20 22 suspend ed Tinea Appl y AM and PM to top, side , gulshan om of left foot and betw een toes for 4 week s ketoconazol e ketocona zole 139177 2 % Topica l apply small amoun t to hair shamp oo When Shampooing 12/29/19 24 active Appl y to damp hair , lath er leav e in 5 ana amrik and rins e out. Use when sham pooi ng mupirocin mupiroci n 982883 2 % Topica l ointm ent 03/24/20 24 suspend ed Appl y AM and PM righ t rivka k for 10 days chanel t/sc ab Sernivo betameth asone dipropio bennett 2754613 0.05 % Topica l spray with pump [...] griseofulvi n microsize griseofu lvin microsiz e 419138 500 mg Oral table t QD 10/07/19 21 suspend ed Tinea Take one PO QD with food and milk hydroxyzine HCl hydroxyz ine HCl 360128 10 mg Oral 1 table t QHS [...] DermOtic Oil fluocino lone acetonid e oil 8837882 0.01 % Otic (ear) drops BID 08/22/19 21 suspend ed Eczema Appl y 2-4 drop s righ t ear for 2 week s clobetasol clobetas ol 071772 0.05 % Scalp solut ion 03/23/20 21 [...] History of clinical finding in subject (situation) 267788412( SNOMED) Problem active Disorder of skin (disorder) 41761071(S NOMED) Diagnosis active 12/29/2018 Atopic dermatitis (disorder) 62955831(S NOMED) Diagnosis active 12/01/2018 Atopic dermatitis (disorder) 42943880(S NOMED) Diagnosis active 11/03/2018 Atopic dermatitis (disorder) 49106109(S NOMED) Diagnosis active 01/26/2018 Itching of skin (finding) 018017056( SNOMED) Diagnosis active 10/10/2017 Melanocytic nevus of trunk (disorder) 907775293( SNOMED) Diagnosis active 08/22/2017 Benign neoplasm of skin of upper limb (disorder) 74731438(S NOMED) Diagnosis active 08/08/2017 Itching of skin (finding) 203129463( SNOMED) Diagnosis active 07/29/2017 Benign neoplasm of skin of trunk (disorder) 98618525(S NOMED) Diagnosis active 07/18/2017 Atopic dermatitis (disorder) 21990204(S NOMED) Diagnosis active 06/18/2017 Atopic dermatitis (disorder) 25421757(S NOMED) Diagnosis active 06/18/2017 Atopic dermatitis (disorder) 51832793(S NOMED) Diagnosis active 05/09/2017 Tinea corporis (disorder) 84867043(S NOMED) Diagnosis active 02/07/2017 Atopic dermatitis (disorder) 54488214(S NOMED) Diagnosis active 12/10/2016 Atopic dermatitis (disorder) 08547877(S NOMED) Diagnosis active 11/25/2016 Itching of skin (finding) 960806810( SNOMED) Diagnosis active 10/23/2016 Tinea corporis (disorder) 51401121(S NOMED) Diagnosis active 09/09/2016 Tinea corporis (disorder) 11905849(S NOMED) Diagnosis active 07/29/2016 Tinea corporis (disorder) 12789553(S NOMED) Diagnosis active 07/03/2016 Atopic dermatitis (disorder) 15269888(S NOMED) Diagnosis active 05/20/2016 Atopic dermatitis (disorder) 72132086(S NOMED) Diagnosis active 02/28/2016 Herpes labialis (disorder) 2541034(SN OMED) Diagnosis active 12/20/2015 Atopic dermatitis (disorder) 54507602(S NOMED) Diagnosis active 09/07/2015 Atopic dermatitis (disorder) 30623830(S NOMED) Diagnosis active 05/31/2015 Benign neoplasm of skin of trunk (disorder) 96652049(S NOMED) Diagnosis active 05/30/2015 Contact dermatitis caused by solar radiation (disorder) 17638977(S NOMED) Diagnosis active 01/04/2015 Dermatophytosis of the body (disorder) 315387189( SNOMED) Diagnosis active 10/25/2014 Neoplasm of uncertain behavior of skin (disorder) 98385620(S NOMED) Diagnosis active 05/31/2014 Tinea unguium B35.1(ICD- 10) Diagnosis active 04/23/2019 Tinea corporis B35.4(ICD- 10) Diagnosis active 04/23/2019 Intrinsic (allergic) eczema L20.84(ICD -10) Diagnosis active 04/23/2019 Arthritis (disorder) 7984421(SN OMED) Problem active Increased blood pressure (finding) 10842603(S NOMED) Problem active Hypercholesterolemia (disorder) 41404440(S NOMED) Problem active Intrinsic (allergic) eczema L20.84(ICD [...] -10) Diagnosis active 09/04/2020 Psoriasis vulgaris (disorder) 415665287( SNOMED) Diagnosis active 09/08/2020 Atopic dermatitis (disorder) 74550780(S NOMED) Diagnosis active 09/11/2020 Psoriasis vulgaris (disorder) 904837494( SNOMED) Diagnosis active 09/15/2020 Atopic dermatitis (disorder) 95617235(S NOMED) Diagnosis active 09/18/2020 Atopic dermatitis (disorder) 61970427(S NOMED) Diagnosis active 09/25/2020 Follicular cysts of skin and subcutaneous tissue (disorder) 485746416( SNOMED) Diagnosis active 09/27/2020 Tinea pedis (disorder) 9538209(SN OMED) Diagnosis active 10/06/2020 Tinea corporis (disorder) 83716565(S NOMED) Diagnosis active 10/06/2020 Surgical follow-up (finding) 380866928( SNOMED) Diagnosis active 10/09/2020 Atopic dermatitis (disorder) 04444632(S NOMED) Diagnosis active 10/16/2020 Atopic dermatitis (disorder) 71546125(S NOMED) Diagnosis active 10/20/2020 Atopic dermatitis (disorder) 96425095(S NOMED) Diagnosis active 10/23/2020 Atopic dermatitis (disorder) 78985736(S NOMED) Diagnosis active 10/27/2020 Atopic dermatitis (disorder) 42505879(S NOMED) Diagnosis active 10/30/2020 Atopic dermatitis (disorder) 98590624(S NOMED) Diagnosis active 11/03/2020 Atopic dermatitis (disorder) 85961040(S NOMED) Diagnosis active 11/06/2020 Atopic dermatitis (disorder) 32425010(S NOMED) Diagnosis active 11/10/2020 Atopic dermatitis (disorder) 78792152(S NOMED) Diagnosis active 11/13/2020 Atopic dermatitis (disorder) 64379242(S NOMED) Diagnosis active 11/17/2020 Atopic dermatitis (disorder) 88085510(S NOMED) Diagnosis active 11/22/2020 Atopic dermatitis (disorder) 79891124(S NOMED) Diagnosis active 11/24/2020 Atopic dermatitis (disorder) 44026592(S NOMED) Diagnosis active 11/27/2020 Atopic dermatitis (disorder) 79367189(S NOMED) Diagnosis active 12/01/2020 Atopic dermatitis (disorder) 41094461(S NOMED) Diagnosis active 12/04/2020 Atopic dermatitis (disorder) 63508420(S NOMED) Diagnosis active 12/08/2020 Atopic dermatitis (disorder) 75739594(S NOMED) Diagnosis active 12/08/2020 Tinea pedis (disorder) 4650348(SN OMED) Diagnosis active 12/08/2020 Tinea corporis (disorder) 14074161(S NOMED) Diagnosis active 12/08/2020 Atopic dermatitis (disorder) 03085644(S NOMED) Diagnosis active 12/11/2020 Psoriasis vulgaris (disorder) 217145395( SNOMED) Diagnosis active 12/15/2020 Atopic dermatitis (disorder) 38600823(S NOMED) Diagnosis active 12/18/2020 Atopic dermatitis (disorder) 14677522(S NOMED) Diagnosis active 12/22/2020 Atopic dermatitis (disorder) 85130437(S NOMED) Diagnosis active 12/29/2020 Atopic dermatitis (disorder) 75553826(S NOMED) Diagnosis active 01/01/2021 Atopic dermatitis (disorder) 64845414(S NOMED) Diagnosis active 01/05/2021 Atopic dermatitis (disorder) 69171313(S NOMED) Diagnosis active 01/08/2021 Atopic dermatitis (disorder) 47297334(S NOMED) Diagnosis active 01/12/2021 Atopic dermatitis (disorder) 25382571(S NOMED) Diagnosis active 01/15/2021 Atopic dermatitis (disorder) 72801949(S NOMED) Diagnosis active 01/19/2021 Atopic dermatitis (disorder) 51254156(S NOMED) Diagnosis active 01/22/2021 Psoriasis vulgaris (disorder) 151705739( SNOMED) Diagnosis active 01/26/2021 Atopic dermatitis (disorder) 22604322(S NOMED) Diagnosis active 01/29/2021 Itching of skin (finding) 880810817( SNOMED) Diagnosis active 02/02/2021 Atopic dermatitis (disorder) 05945253(S NOMED) Diagnosis active 02/02/2021 Atopic dermatitis (disorder) 89808066(S NOMED) Diagnosis active 02/16/2021 Atopic dermatitis (disorder) 41644694(S NOMED) Diagnosis active 02/19/2021 Atopic dermatitis (disorder) 27785707(S NOMED) Diagnosis active 03/02/2021 Atopic dermatitis (disorder) 29607251(S NOMED) Diagnosis active 03/05/2021 Atopic dermatitis (disorder) 66538546(S NOMED) Diagnosis active 03/09/2021 Atopic dermatitis (disorder) 06828798(S NOMED) Diagnosis active 03/12/2021 Atopic dermatitis (disorder) 79623664(S NOMED) Diagnosis active 03/16/2021 Atopic dermatitis (disorder) 43196566(S NOMED) Diagnosis active 03/19/2021 Atopic dermatitis (disorder) 45385041(S NOMED) Diagnosis active 03/23/2021 Atopic dermatitis (disorder) 00960614(S NOMED) Diagnosis active 03/23/2021 Tinea pedis (disorder) 5604383(SN OMED) Diagnosis active 03/23/2021 Tinea corporis (disorder) 43347474(S NOMED) Diagnosis active 03/23/2021 Itching of skin (finding) 302442233( SNOMED) Diagnosis active 03/23/2021 Atopic dermatitis (disorder) 69533578(S NOMED) Diagnosis active 03/30/2021 Atopic dermatitis (disorder) 57027066(S NOMED) Diagnosis active 04/06/2021 Atopic dermatitis (disorder) 96312016(S NOMED) Diagnosis active 04/20/2021 Atopic dermatitis (disorder) 06950498(S NOMED) Diagnosis active 05/10/2021 Atopic dermatitis (disorder) 35931534(S NOMED) Diagnosis active 05/28/2021 Tinea pedis (disorder) 2818017(SN OMED) Diagnosis active 05/28/2021 Itching of skin (finding) 225625925( SNOMED) Diagnosis active 05/28/2021 Psoriasis vulgaris (disorder) 758601616( SNOMED) Diagnosis active 08/03/2021 Psoriasis vulgaris (disorder) 183277769( SNOMED) Diagnosis active 08/10/2021 Atopic dermatitis (disorder) 69750641(S NOMED) Diagnosis active 08/24/2021 Psoriasis vulgaris (disorder) 689304126( SNOMED) Diagnosis active 08/24/2021 Atopic dermatitis (disorder) 37076415(S NOMED) Diagnosis active 08/31/2021 Atopic dermatitis (disorder) 37618888(S NOMED) Diagnosis active 09/07/2021 Psoriasis vulgaris (disorder) 693240224( SNOMED) Diagnosis active 09/14/2021 Atopic dermatitis (disorder) 74849977(S NOMED) Diagnosis active 09/21/2021 Atopic dermatitis (disorder) 42270894(S NOMED) Diagnosis active 09/28/2021 Atopic dermatitis (disorder) 23342879(S NOMED) Diagnosis active 10/05/2021 Atopic dermatitis (disorder) 87754684(S NOMED) Diagnosis active 10/12/2021 Atopic dermatitis (disorder) 99003307(S NOMED) Diagnosis active 10/19/2021 Atopic dermatitis (disorder) 19432018(S NOMED) Diagnosis active 10/26/2021 Atopic dermatitis (disorder) 41338870(S NOMED) Diagnosis active 10/31/2021 Atopic dermatitis (disorder) 43211344(S NOMED) Diagnosis active 11/20/2021 Atopic dermatitis (disorder) 28234318(S NOMED) Diagnosis active 11/23/2021 Atopic dermatitis (disorder) 25719955(S NOMED) Diagnosis active 11/30/2021 Atopic dermatitis (disorder) 27611871(S NOMED) Diagnosis active 12/07/2021 Atopic dermatitis (disorder) 32960422(S NOMED) Diagnosis active 12/14/2021 Atopic dermatitis (disorder) 35667435(S NOMED) Diagnosis active 12/21/2021 Atopic dermatitis (disorder) 31714542(S NOMED) Diagnosis active 12/28/2021 Atopic dermatitis (disorder) 05652136(S NOMED) Diagnosis active 12/31/2021 Atopic dermatitis (disorder) 03704929(S NOMED) Diagnosis active 01/04/2022 Atopic dermatitis (disorder) 99625202(S NOMED) Diagnosis active 01/11/2022 Atopic dermatitis (disorder) 23228865(S NOMED) Diagnosis active 01/18/2022 Atrial fibrillation (disorder) 50507856(S NOMED) Problem active Secondary restless legs syndrome (disorder) 003594233( SNOMED) Problem active Atopic dermatitis (disorder) 54342275(S NOMED) Diagnosis active 02/01/2022 Atopic dermatitis (disorder) 21685806(S NOMED) Diagnosis active 02/08/2022 Atopic dermatitis (disorder) 66345362(S NOMED) Diagnosis active 02/15/2022 Atopic dermatitis (disorder) 94166064(S NOMED) Diagnosis active 02/22/2022 Atopic dermatitis (disorder) 66713941(S NOMED) Diagnosis active 03/01/2022 Atopic dermatitis (disorder) 74978521(S NOMED) Diagnosis active 2022 Atopic dermatitis (disorder) 35995121(S NOMED) Diagnosis active 03/15/2022 Atopic dermatitis (disorder) 89060028(S NOMED) Diagnosis active 03/22/2022 Atopic dermatitis (disorder) 63115508(S NOMED) Diagnosis active 03/29/2022 Atopic dermatitis (disorder) 65248443(S NOMED) Diagnosis active 04/03/2022 Tinea pedis (disorder) 4917810(SN OMED) Diagnosis active 04/03/2022 Atopic dermatitis (disorder) 99493950(S NOMED) Diagnosis active 04/05/2022 Atopic dermatitis (disorder) 98580476(S NOMED) Diagnosis active 04/12/2022 Atopic dermatitis (disorder) 83458680(S NOMED) Diagnosis active 04/19/2022 Atopic dermatitis (disorder) 06039257(S NOMED) Diagnosis active 04/26/2022 Atopic dermatitis (disorder) 15925319(S NOMED) Diagnosis active 05/03/2022 Atopic dermatitis (disorder) 83544667(S NOMED) Diagnosis active 05/31/2022 Eczema (disorder) 43572441(S NOMED) Problem active Psoriasis (disorder) 5654668(SN OMED) Problem active Atopic dermatitis (disorder) 46627678(S NOMED) Diagnosis active 06/07/2022 Atopic dermatitis (disorder) 06406088(S NOMED) Diagnosis active 06/14/2022 Atopic dermatitis (disorder) 34544612(S NOMED) Diagnosis active 06/21/2022 Atopic dermatitis (disorder) 72865675(S NOMED) Diagnosis active 06/28/2022 Atopic dermatitis (disorder) 08684908(S NOMED) Diagnosis active 07/05/2022 Atopic dermatitis (disorder) 88394641(S NOMED) Diagnosis active 07/12/2022 Atopic dermatitis (disorder) 78554257(S NOMED) Diagnosis active 07/19/2022 Atopic dermatitis (disorder) 48427059(S NOMED) Diagnosis active 07/26/2022 Atopic dermatitis (disorder) 76943805(S NOMED) Diagnosis active 08/02/2022 Atopic dermatitis (disorder) 47742275(S NOMED) Diagnosis active 08/05/2022 Tinea pedis (disorder) 9082260(SN OMED) Diagnosis active 08/05/2022 Atopic dermatitis (disorder) 97823647(S NOMED) Diagnosis active 08/09/2022 Atopic dermatitis (disorder) 87299477(S NOMED) Diagnosis active 08/13/2022 Atopic dermatitis (disorder) 51209129(S NOMED) Diagnosis active 08/16/2022 Atopic dermatitis (disorder) 49130107(S NOMED) Diagnosis active 08/19/2022 Atopic dermatitis (disorder) 93846421(S NOMED) Diagnosis active 08/30/2022 Atopic dermatitis (disorder) 82244870(S NOMED) Diagnosis active 08/30/2022 Atopic dermatitis (disorder) 01232555(S NOMED) Diagnosis active 09/02/2022 Atopic dermatitis (disorder) 49462134(S NOMED) Diagnosis active 09/06/2022 Atopic dermatitis (disorder) 25316420(S NOMED) Diagnosis active 09/09/2022 Atopic dermatitis (disorder) 97455241(S NOMED) Diagnosis active 09/13/2022 Atopic dermatitis (disorder) 53925791(S NOMED) Diagnosis active 09/16/2022 Atopic dermatitis (disorder) 75278787(S NOMED) Diagnosis active 09/20/2022 Atopic dermatitis (disorder) 63142385(S NOMED) Diagnosis active 09/23/2022 Atopic dermatitis (disorder) 29725450(S NOMED) Diagnosis active 09/27/2022 Atopic dermatitis (disorder) 98249856(S NOMED) Diagnosis active 10/18/2022 Atopic dermatitis (disorder) 84481792(S NOMED) Diagnosis active 10/18/2022 Neoplasm of uncertain behavior of skin (disorder) 63999414(S NOMED) Diagnosis active 10/21/2022 Atopic dermatitis (disorder) 55427552(S NOMED) Diagnosis active 10/25/2022 Atopic dermatitis (disorder) 00411840(S NOMED) Diagnosis active 10/28/2022 Atopic dermatitis (disorder) 33053726(S NOMED) Diagnosis active 11/01/2022 Atopic dermatitis (disorder) 73852319(S NOMED) Diagnosis active 11/04/2022 Atopic dermatitis (disorder) 75400194(S NOMED) Diagnosis active 11/08/2022 Atopic dermatitis (disorder) 51398814(S NOMED) Diagnosis active 11/11/2022 Atopic dermatitis (disorder) 51691279(S NOMED) Diagnosis active 11/15/2022 Atopic dermatitis (disorder) 46696051(S NOMED) Diagnosis active 11/19/2022 Atopic dermatitis (disorder) 62967712(S NOMED) Diagnosis active 11/25/2022 Atopic dermatitis (disorder) 89371173(S NOMED) Diagnosis active 11/29/2022 Atopic dermatitis (disorder) 76360937(S NOMED) Diagnosis active 12/02/2022 Atopic dermatitis (disorder) 60511706(S NOMED) Diagnosis active 12/06/2022 Atopic dermatitis (disorder) 48253682(S NOMED) Diagnosis active 12/16/2022 Atopic dermatitis (disorder) 99356480(S NOMED) Diagnosis active 12/20/2022 Atopic dermatitis (disorder) 49560187(S NOMED) Diagnosis active 12/27/2022 Atopic dermatitis (disorder) 57678844(S NOMED) Diagnosis active 12/13/2022 Atopic dermatitis (disorder) 76210974(S NOMED) Diagnosis active 01/06/2023 Atopic dermatitis (disorder) 08727553(S NOMED) Diagnosis active 01/10/2023 Neoplasm of uncertain behavior of skin (disorder) 27716783(S NOMED) Diagnosis active 01/20/2023 Atopic dermatitis (disorder) 98817565(S NOMED) Diagnosis active 01/20/2023 Atopic dermatitis (disorder) 38835629(S NOMED) Diagnosis active 01/24/2023 Atopic dermatitis (disorder) 98382654(S NOMED) Diagnosis active 01/31/2023 Atopic dermatitis (disorder) 94327044(S NOMED) Diagnosis active 02/03/2023 Atopic dermatitis (disorder) 27564258(S NOMED) Diagnosis active 02/10/2023 Atopic dermatitis (disorder) 07207407(S NOMED) Diagnosis active 02/07/2023 Atopic dermatitis (disorder) 75294435(S NOMED) Diagnosis active 02/14/2023 Atopic dermatitis (disorder) 44541002(S NOMED) Diagnosis active 02/17/2023 Atopic dermatitis (disorder) 15089672(S NOMED) Diagnosis active 02/20/2023 Atopic dermatitis (disorder) 28100287(S NOMED) Diagnosis active 01/17/2023 Atopic dermatitis (disorder) 82598496(S NOMED) Diagnosis active 03/03/2023 Atopic dermatitis (disorder) 18360334(S NOMED) Diagnosis active 02/28/2023 Basal cell carcinoma of face (disorder) 282695353( SNOMED) Diagnosis active 03/05/2023 Neoplasm of uncertain behavior of skin (disorder) 29619992(S NOMED) Diagnosis active 03/05/2023 Basal cell carcinoma of face (disorder) 670693552( SNOMED) Diagnosis active 03/18/2023 Surgical follow-up (finding) 794405976( SNOMED) Diagnosis active 03/25/2023 Atopic dermatitis (disorder) 16583668(S NOMED) Diagnosis active 03/28/2023 Atopic dermatitis (disorder) 01061152(S NOMED) Diagnosis active 03/31/2023 Atopic dermatitis (disorder) 10804741(S NOMED) Diagnosis active 04/04/2023 Atopic dermatitis (disorder) 90214278(S NOMED) Diagnosis active 04/07/2023 Atopic dermatitis (disorder) 66763175(S NOMED) Diagnosis active 04/11/2023 Atopic dermatitis (disorder) 09157006(S NOMED) Diagnosis active 04/14/2023 Atopic dermatitis (disorder) 31959466(S NOMED) Diagnosis active 04/18/2023 Atopic dermatitis (disorder) 00544531(S NOMED) Diagnosis active 04/25/2023 Atopic dermatitis (disorder) 53359354(S NOMED) Diagnosis active 04/28/2023 Atopic dermatitis (disorder) 93661741(S NOMED) Diagnosis active 01/03/2023 Atopic dermatitis (disorder) 65690515(S NOMED) Diagnosis active 05/02/2023 Atopic dermatitis (disorder) 67527886(S NOMED) Diagnosis active 05/05/2023 Atopic dermatitis (disorder) 74625806(S NOMED) Diagnosis active 05/09/2023 Atopic dermatitis (disorder) 21731423(S NOMED) Diagnosis active 05/12/2023 Atopic dermatitis (disorder) 19493590(S NOMED) Diagnosis active 05/14/2023 Atopic dermatitis (disorder) 81720740(S NOMED) Diagnosis active 05/26/2023 Atopic dermatitis (disorder) 78195110(S NOMED) Diagnosis active 06/02/2023 Atopic dermatitis (disorder) 56688714(S NOMED) Diagnosis active 05/30/2023 Atopic dermatitis (disorder) 54869935(S NOMED) Diagnosis active 06/06/2023 Atopic dermatitis (disorder) 55932552(S NOMED) Diagnosis active 05/23/2023 Atopic dermatitis (disorder) 42871599(S NOMED) Diagnosis active 06/09/2023 Atopic dermatitis (disorder) 68423246(S NOMED) Diagnosis active 06/13/2023 Atopic dermatitis (disorder) 87897767(S NOMED) Diagnosis active 06/17/2023 Atopic dermatitis (disorder) 15692399(S NOMED) Diagnosis active 06/20/2023 Atopic dermatitis (disorder) 06487110(S NOMED) Diagnosis active 06/27/2023 Atopic dermatitis (disorder) 56774395(S NOMED) Diagnosis active 06/30/2023 Hemangioma of skin and subcutaneous tissue (disorder) 892254642( SNOMED) Diagnosis active 07/07/2023 Seborrheic keratosis (disorder) 753591230( SNOMED) Diagnosis active 07/07/2023 Disorder of pigmentation (disorder) 032817028( SNOMED) Diagnosis active 07/07/2023 Melanocytic nevus of trunk (disorder) 560139740( SNOMED) Diagnosis active 07/07/2023 Atopic dermatitis (disorder) 47297857(S NOMED) Diagnosis active 07/07/2023 Patient encounter status (finding) 868213685( SNOMED) Diagnosis active 07/07/2023 History of malignant neoplasm of skin (situation) 470275681( SNOMED) Diagnosis active 07/07/2023 Basal cell carcinoma of skin (disorder) 506388850( SNOMED) Problem active Atopic dermatitis (disorder) 77249961(S NOMED) Diagnosis active 07/04/2023 Atopic dermatitis (disorder) 65793821(S NOMED) Diagnosis active 07/11/2023 Atopic dermatitis (disorder) 20458568(S NOMED) Diagnosis active 07/18/2023 Atopic dermatitis (disorder) 73232866(S NOMED) Diagnosis active 07/25/2023 Atopic dermatitis (disorder) 18257848(S NOMED) Diagnosis active 08/08/2023 Atopic dermatitis (disorder) 93886834(S NOMED) Diagnosis active 08/15/2023 Atopic dermatitis (disorder) 92055289(S NOMED) Diagnosis active 08/22/2023 Atopic dermatitis (disorder) 69676237(S NOMED) Diagnosis active 08/29/2023 Atopic dermatitis (disorder) 15846044(S NOMED) Diagnosis active 08/01/2023 Atopic dermatitis (disorder) 52632072(S NOMED) Diagnosis active 09/05/2023 Atopic dermatitis (disorder) 44048050(S NOMED) Diagnosis active 09/26/2023 Atopic dermatitis (disorder) 28104622(S NOMED) Diagnosis active 10/03/2023 Atopic dermatitis (disorder) 70616636(S NOMED) Diagnosis active 10/10/2023 Atopic dermatitis (disorder) 50076383(S NOMED) Diagnosis active 10/17/2023 Atopic dermatitis (disorder) 48847425(S NOMED) Diagnosis active 10/24/2023 Atopic dermatitis (disorder) 73652336(S NOMED) Diagnosis active 10/31/2023 Atopic dermatitis (disorder) 53910855(S NOMED) Diagnosis active 11/07/2023 Atopic dermatitis (disorder) 56718307(S NOMED) Diagnosis active 11/14/2023 Atopic dermatitis (disorder) 36266624(S NOMED) Diagnosis active 11/21/2023 Atopic dermatitis (disorder) 47231783(S NOMED) Diagnosis active 12/05/2023 Atopic dermatitis (disorder) 52556243(S NOMED) Diagnosis active 12/12/2023 Atopic dermatitis (disorder) 35050549(S NOMED) Diagnosis active 12/19/2023 Hemangioma of skin and subcutaneous tissue (disorder) 418953532( SNOMED) Diagnosis active 12/29/2023 Seborrheic keratosis (disorder) 255819019( SNOMED) Diagnosis active 12/29/2023 Disorder of pigmentation (disorder) 080781067( SNOMED) Diagnosis active 12/29/2023 Melanocytic nevus of trunk (disorder) 850981947( SNOMED) Diagnosis active 12/29/2023 Atopic dermatitis (disorder) 98293618(S NOMED) Diagnosis active 12/29/2023 Seborrheic dermatitis (disorder) 82300572(S NOMED) Diagnosis active 12/29/2023 Patient encounter status (finding) 655219637( SNOMED) Diagnosis active 12/29/2023 History of malignant neoplasm of skin (situation) 414693362( SNOMED) Diagnosis active 12/29/2023 Atopic dermatitis (disorder) 87815320(S NOMED) Diagnosis active 01/30/2024 Localized edema (finding) 015474705( SNOMED) Diagnosis active 03/24/2024 Atopic dermatitis (disorder) 23372670(S NOMED) Diagnosis active 04/23/2024 Atopic dermatitis (disorder) 54172316(S NOMED) Diagnosis active 05/18/2024 Atopic dermatitis (disorder) 12401976(S NOMED) Diagnosis active 05/24/2024 Atopic dermatitis (disorder) 38286756(S NOMED) Diagnosis active 05/26/2024 Atopic dermatitis (disorder) 61430453(S NOMED) Diagnosis active 05/28/2024 Atopic dermatitis (disorder) 02784506(S NOMED) Diagnosis active 06/02/2024 Atopic dermatitis (disorder) 06302941(S NOMED) Diagnosis active 06/11/2024 Atopic dermatitis (disorder) 08501868(S NOMED) Diagnosis active 06/14/2024 Atopic dermatitis (disorder) 05017668(S NOMED) Diagnosis active 06/18/2024 Atopic dermatitis (disorder) 81716437(S NOMED) Diagnosis active 06/25/2024 Atopic dermatitis (disorder) 06119490(S NOMED) Diagnosis active 06/28/2024 Atopic dermatitis (disorder) 69995757(S NOMED) Diagnosis active 07/02/2024 Atopic dermatitis (disorder) 13560914(S NOMED) Diagnosis active 07/05/2024 Atopic dermatitis (disorder) 84277674(S NOMED) Diagnosis active 07/09/2024 Atopic dermatitis (disorder) 21750011(S NOMED) Diagnosis active 07/14/2024 Atopic dermatitis (disorder) 55980752(S NOMED) Diagnosis active 07/16/2024 Atopic dermatitis (disorder) 19802700(S NOMED) Diagnosis active 07/19/2024 Disorder of pigmentation (disorder) 850048019( SNOMED) Diagnosis active 07/19/2024 Atopic dermatitis (disorder) 00220129(S NOMED) Diagnosis active 07/21/2024 Atopic dermatitis (disorder) 19352412(S NOMED) Diagnosis active 08/02/2024 Atopic dermatitis (disorder) 07070394(S NOMED) Diagnosis active 07/30/2024 Atopic dermatitis (disorder) 29883461(S NOMED) Diagnosis active 08/11/2024 Atopic dermatitis (disorder) 41076833(S NOMED) Diagnosis active 08/06/2024 Atopic dermatitis (disorder) 00867371(S NOMED) Diagnosis active 08/18/2024 Hemangioma of skin and subcutaneous tissue (disorder) 220923072( SNOMED) Diagnosis active 08/25/2024 Seborrheic keratosis (disorder) 409846842( SNOMED) Diagnosis active 08/25/2024 Disorder of pigmentation (disorder) 744862031( SNOMED) Diagnosis active 08/25/2024 Melanocytic nevus of trunk (disorder) 518938323( SNOMED) Diagnosis active 08/25/2024 Atopic dermatitis (disorder) 40337297(S NOMED) Diagnosis active 08/25/2024 Patient encounter status (finding) 360766655( SNOMED) Diagnosis active 08/25/2024 Diverticulitis (morphologic abnormality) 98252891(S NOMED) Problem active Hypothyroidism (disorder) 53939743(S NOMED) Problem active Malignant tumor of thyroid gland (disorder) 304564009( SNOMED) Problem active Atopic dermatitis (disorder) 09892223(S NOMED) Diagnosis active 08/25/2024 Atopic dermatitis (disorder) 56634432(S NOMED) Diagnosis active 08/23/2024 Atopic dermatitis (disorder) 32672663(S NOMED) Diagnosis active 08/27/2024 Atopic dermatitis (disorder) 38433957(S NOMED) Diagnosis active 09/01/2024 Atopic dermatitis (disorder) 50345269(S NOMED) Diagnosis active 09/03/2024 Atopic dermatitis (disorder) 97607662(S NOMED) Diagnosis active 09/10/2024 Atopic dermatitis (disorder) 05999164(S NOMED) Diagnosis active 09/15/2024 Atopic dermatitis (disorder) 65700490(S NOMED) Diagnosis active 09/17/2024 Atopic dermatitis (disorder) 97241458(S NOMED) Diagnosis active 09/22/2024 Atopic dermatitis (disorder) 62876448(S NOMED) Diagnosis active 09/24/2024 Atopic dermatitis (disorder) 63369086(S NOMED) Diagnosis active 09/27/2024 Atopic dermatitis (disorder) 48045644(S NOMED) Diagnosis active 09/29/2024 Atopic dermatitis (disorder) 58751146(S NOMED) Diagnosis active 10/01/2024 Atopic dermatitis (disorder) 67868721(S NOMED) Diagnosis active 10/08/2024 Atopic dermatitis (disorder) 07817826(S NOMED) Diagnosis active 10/11/2024 Atopic dermatitis (disorder) 47470260(S NOMED) Diagnosis active 10/13/2024 Atopic dermatitis (disorder) 49460056(S NOMED) Diagnosis active 10/20/2024 Atopic dermatitis (disorder) 97961625(S NOMED) Diagnosis active 10/25/2024 Atopic dermatitis (disorder) 95004185(S NOMED) Diagnosis active 10/27/2024 Atopic dermatitis (disorder) 36551849(S NOMED) Diagnosis active 10/29/2024 Atopic dermatitis (disorder) 74456954(S NOMED) Diagnosis active 11/03/2024 Atopic dermatitis (disorder) 68705283(S NOMED) Diagnosis active 11/05/2024 Atopic dermatitis (disorder) 08852366(S NOMED) Diagnosis active 11/08/2024 Atopic dermatitis (disorder) 35835384(S NOMED) Diagnosis active 11/12/2024 Atopic dermatitis (disorder) 89265596(S NOMED) Diagnosis active 11/19/2024 Atopic dermatitis (disorder) 67781341(S NOMED) Diagnosis active 11/24/2024 Neoplasm of uncertain behavior of skin (disorder) 60324253(S NOMED) Diagnosis active 11/29/2024 Atopic dermatitis (disorder) 20642500(S NOMED) Diagnosis active 11/29/2024 Atopic dermatitis (disorder) 86095335(S NOMED) Diagnosis active 11/29/2024 Atopic dermatitis (disorder) 39936691(S NOMED) Diagnosis active 11/26/2024 Atopic dermatitis (disorder) 22746761(S NOMED) Diagnosis active 12/03/2024 Atopic dermatitis (disorder) 79829937(S NOMED) Diagnosis active 12/01/2024 Atopic dermatitis (disorder) 24728478(S NOMED) Diagnosis active 12/08/2024 Atopic dermatitis (disorder) 66182966(S NOMED) Diagnosis active 12/10/2024 Atopic dermatitis (disorder) 73265383(S NOMED) Diagnosis active 12/17/2024 Atopic dermatitis (disorder) 45541188(S NOMED) Diagnosis active 12/22/2024 Atopic dermatitis (disorder) 01831214(S NOMED) Diagnosis active 12/27/2024 Atopic dermatitis (disorder) 08560997(S NOMED) Diagnosis active 12/29/2024 Atopic dermatitis (disorder) 84432776(S NOMED) Diagnosis active 12/31/2024 Atopic dermatitis (disorder) 40281825(S NOMED) Diagnosis active 01/03/2025 Atopic dermatitis (disorder) 09132067(S NOMED) Diagnosis active 01/05/2025 Atopic dermatitis (disorder) 03059048(S NOMED) Diagnosis active 01/07/2025 Atopic dermatitis (disorder) 85304542(S NOMED) Diagnosis active 01/19/2025 Atopic dermatitis (disorder) 35422555(S NOMED) Diagnosis active 01/21/2025 Atopic dermatitis (disorder) 35924773(S NOMED) Diagnosis active 01/26/2025 Atopic dermatitis (disorder) 80571008(S NOMED) Diagnosis active 01/31/2025 Atopic dermatitis (disorder) 30250026(S NOMED) Diagnosis active 02/02/2025 Atopic dermatitis (disorder) 03185209(S NOMED) Diagnosis active 02/11/2025 Atopic dermatitis (disorder) 82339634(S NOMED) Diagnosis active 02/14/2025 Atopic dermatitis (disorder) 40046008(S NOMED) Diagnosis active 02/15/2025 Atopic dermatitis (disorder) 58671535(S NOMED) Diagnosis active 02/16/2025 Atopic dermatitis (disorder) 77235466(S NOMED) Diagnosis active 02/18/2025 Atopic dermatitis (disorder) 28657072(S NOMED) Diagnosis active 02/22/2025 Atopic dermatitis (disorder) 90586359(S NOMED) Diagnosis active 02/25/2025 Atopic dermatitis (disorder) 70406594(S NOMED) Diagnosis active 02/28/2025 Atopic dermatitis (disorder) 67178021(S NOMED) Diagnosis active 03/04/2025 Atopic dermatitis (disorder) 58078612(S NOMED) Diagnosis active 03/07/2025 Atopic dermatitis (disorder) 93990156(S NOMED) Diagnosis active 03/11/2025 Atopic dermatitis (disorder) 98123434(S NOMED) Diagnosis active 03/14/2025 Atopic dermatitis (disorder) 46511790(S NOMED) Diagnosis active 03/16/2025 Atopic dermatitis (disorder) 83017336(S NOMED) Diagnosis active 03/18/2025 Atopic dermatitis (disorder) 86149137(S NOMED) Diagnosis active 03/21/2025 Atopic dermatitis (disorder) 17272347(S NOMED) Diagnosis active 03/25/2025 Atopic dermatitis (disorder) 49030829(S NOMED) Diagnosis active 03/28/2025 Atopic dermatitis (disorder) 86189011(S NOMED) Diagnosis active 03/30/2025 Atopic dermatitis (disorder) 70432929(S NOMED) Diagnosis active 04/01/2025 Atopic dermatitis (disorder) 39963962(S NOMED) Diagnosis active 04/25/2025 Atopic dermatitis (disorder) 76961908(S NOMED) Diagnosis active 04/27/2025 Disorder of skin (disorder) 03548214(S NOMED) Diagnosis active 04/27/2025 Atopic dermatitis (disorder) 69932697(S NOMED) Diagnosis active 04/29/2025 Atopic dermatitis (disorder) 35612933(S NOMED) Diagnosis active 05/02/2025 Atopic dermatitis (disorder) 16587712(S NOMED) Diagnosis active 05/04/2025 Atopic dermatitis (disorder) 33825556(S NOMED) Diagnosis active 05/09/2025 Atopic dermatitis (disorder) 16260679(S NOMED) Diagnosis active 05/06/2025 Atopic dermatitis (disorder) 97683253(S NOMED) Diagnosis active 05/11/2025 Atopic dermatitis (disorder) 31902809(S NOMED) Diagnosis active 05/13/2025 Atopic dermatitis (disorder) 59407101(S NOMED) Diagnosis active 05/18/2025 Atopic dermatitis (disorder) 47958894(S NOMED) Diagnosis active 05/23/2025 Atopic dermatitis (disorder) 18599222(S NOMED) Diagnosis active 05/25/2025 Atopic dermatitis (disorder) 29570978(S NOMED) Diagnosis active 05/30/2025 Atopic dermatitis (disorder) 56831774(S NOMED) Diagnosis active 06/01/2025 Results No data Encounters Service provided at [facility], [address] [place] [address], [address], [place], [place] [id number]. Office phonenumber is [phone]. Office fax number is [phone]. Encounter Diagnosis Location Date / Time Type Disc harge Status Eczema (L20.89) [facility] 06/01/2025 16:30:00 [place] [facility] Reason For Referral I saw Mario Arlet in the office on June 01, 2025.Below is a summary of our visit:Eczema: .Plan: Phototherapy Treatment.My impression and plan was the followin.EczemaPhototherapy Treatment: Skin Type - II; Treatment Number - 338; Render Post-care in the Note - no; Total Body Energy - 880mj; Comments on Previous Treatment - Room 3, no fans.; Protocol - Photochemotherapy: Mineral Oil andNBUVB; Total Body Time - 4min; Total Treatment Time - 4 min; Location (Body Touches will Override) - full body. Procedures Procedure Date Phototherapy of skin (procedure) [...] Skin Type - II; Treatment Number - 338; Render Post-care in the Note - no; Total Body Energy - 880mj; Comments on Previous Treatment - Room 3, no fans.; Protocol - Photochemotherapy: Mineral Oil and NBUVB; Total Body Time - 4min; Total Treatment Time - 4 min; Location (Body Touches will Override) - full body. Plan of Care Code Detail Instructions betamethasone diprop ionate 0.05 % topical ointment Apply AM and PM scalp as needed for itch 422857 ketoconazole 2 % shampoo Apply t o damp hair, lather leave in 5 minutes and rinse out. Use when shampooing 022103 betamethasone diprop ionate 0.05 % lotion Apply AM and PM scalp and upper back itch as needed 774458 ketoconazole 2 % shampoo Apply t o damp hair, lather leave in 5 minutes and rinse out. Use when shampooing 466460 ketoconazole 2 % shampoo Apply t o damp hair, lather leave in 5 minutes and rinse out. Use when shampooing betamethasone valerate 0.1 % lot ion Apply AM and PM scalp for itch 000225 betamethasone diprop ionate 0.05 % lotion Apply Am and PM scalp itch as needed 951628 hydroxyzine HCl 10 mg tablet Duong e one pill po at supper and if needed bedtime prn itch. Do not drive or operate heavy machinery 439482 fluocinonide 0.05 % topical solu tion Apply 5-10 drops AM and PM scalp and massage in 393909 mupirocin 2 % topical ointment A pply AM and PM right cheek for 10 days crust/scab 720872 ketoconazole 2 % shampoo Apply t o damp hair, lather leave in 5 minutes and rinse out. Use when shampooing 417563 clobetasol 0.05 % topical cream Apply AM and PM rash buttocks and left knee 780472 clobetasol 0.05 % scalp solution Apply 5-10 drops to scalp itchy area and massage in 802488 clobetasol 0.05 % scalp solution Apply 5-10 drops to scalp itchy area and massage in 723197 halobetasol propiona te 0.05 % topical cream Apply AM and PM eczema left hand and foot for 2 weeks when needed. Never use face groin or underarms 858363 ciclopirox 0.77 % topical cream Apply AM and PM to tops sides bottoms of left foot and between toes for 4 weeks 565179 clobetasol 0.05 % topical cream Apply AM and PM rash buttocks and left knee 321512 ketoconazole 2 % topical cream A pply AM and PM to top, side, bottom of left foot and between toes for 4 weeks 517901 ciclopirox 0.77 % topical cream Apply AM and PM to tops sides bottoms of left foot and between toes for 4 weeks 875014 ciclopirox 0.77 % topical cream Apply AM and PM to tops sides bottoms of left foot and between toes for 4 weeks 973942 clobetasol 0.05 % topical cream Apply AM and PM rash buttocks and left knee 952618 clobetasol 0.05 % topical cream Apply AM and PM rash buttocks and left knee 1475432 Sernivo 0.05 % topical spray wit h pump Apply AM and PM scalp and massage in 622193 clobetasol 0.05 % scalp solution Apply 5-10 drops to scalp itchy area and massage in 930701 ciclopirox 0.77 % topical cream Apply AM and PM to tops, sides, bottom of feet, between toes for 4 weeks. 127114 griseofulvin microsize 500 mg ta blet Take one PO QD with food and milk 157262 griseofulvin microsize 500 mg ta blet Take one PO QD with food and milk 135917 mupirocin 2 % topical ointment A pply to surgical site on forehead twice a day x 7-14 days. 893754 mupirocin 2 % topical ointment A pply to surgical site on forehead twice a day x 7-14 days. 4368047 DermOtic Oil 0.01 % ear drops Ap ply 2-4 drops right ear for 2 weeks 1250356 DermOtic Oil 0.01 % ear drops Ap ply 2-4 drops right ear for 2 weeks 1598171 DermOtic Oil 0.01 % ear drops Ap ply 2-4 drops right ear for 2 weeks 154934 clobetasol 0.05 % topical cream Apply AM and PM rash buttocks and left knee 524065 clobetasol 0.05 % topical cream APPLY AM AND PM ECZEMA LOWER LEGS FOR UP TO 2 WEEKS WHEN NEEDED 766705 terbinafine HCl 250 mg tablet Ta ke one po qd 386260 terbinafine HCl 250 mg tablet Ta ke one po QD. Do not drink alcohol with this medication 336051 terbinafine HCl 250 mg tablet Ta ke one po QD. Do not drink alcohol with this medication 687382 ciclopirox 0.77 % topical cream Apply AM and PM left leg and buttocks for 4 weeks 051443 terbinafine HCl 250 mg tablet Ta ke one po QD. Do not drink alcohol with this medication 218404 ciclopirox 0.77 % topical cream Apply AM and PM tinea left lower leg for 4 weeks until clear 428085 clobetasol 0.05 % topical cream APPLY AM AND PM ECZEMA LOWER LEGS FOR UP TO 2 WEEKS WHEN NEEDED 929694 terbinafine HCl 250 mg tablet Ta ke one tablet by mouth once daily. 224541 griseofulvin microsize 500 mg ta blet Take one pill by mouth daily with food and milk. 032174 griseofulvin microsize 500 mg ta blet Take one PO QD with food and milk 070335 ciclopirox 0.77 % topical cream Apply AM and PM to tinea buttocks for 4 weeks 057771 griseofulvin microsize 500 mg ta blet Take one po qd with food and milk 225118 clobetasol 0.05 % topical cream APPLY AM AND PM ECZEMA BUTTOCKS FOR UP TO 2 WEEKS WHEN NEEDED 479765 clobetasol 0.05 % topical cream APPLY AM AND PM ECZEMA BACK AND BUTTOCKS FOR UP TO 2 WEEKS WHEN NEEDED 132506 betamethasone diprop ionate 0.05 % lotion Apply 5-10 drops once to twice daily to scalp massage into scalp 670289 clobetasol 0.05 % topical cream Apply am and pm eczema back buttocks 099074 betamethasone diprop ionate 0.05 % topical cream Apply am and pm dry patches upper back and buttocks Instructions No Data Social History Code Activity Start Date End Date [id number] (SNOMED) Never smoker Sex Male Sexual orientation Unspecified Gender identity Unspecified Vital Signs No data Insurances Coverage Status Coverage Type Relationship to Subscriber Member Identifier Subscriber Identifier Group Identifier Payer Identifier Inactive 1 Self [id number] Inactive Self [id number] Inactive Self [id number] Active Self [id number] [employer] Inactive Self [id number] Inactive 2 Self [id number] Inactive Self [id number]
--- OUTSIDE RECORDS SUMMARY | 2025-06-03 17:02 | XMS_ITS | Clinical Summary ---
Author Organization [facility] Address [address] [place] [address] Phone Care Team Providers Care Material Control Associate Name Role Phone Bhakti Reyes MD Primary Care Provider [phone] Allergies No known active allergies Medications allopurinol (ZYLOPRIM) 100 MG tablet Take 100 mg by mouth daily. 12/25/2024 Active atorvastatin (LIPITOR) 10 MG tablet Take 10 mg by mouth daily. 12/25/2024 Active dilTIAZem (CARDIZEM CD) 120 MG 24 hr capsule Take 120 mg by mouth daily. 12/25/2024 Active omega 2-bfy-jtk-fish oil (FISH OIL) 1,000 (120-180) mg Cap [...] EDT) SODIUM 140 133 - 146 mmol/L [facility] POTASSIUM 3.8 3.3 - 5.1 mmol/L [facility] CHLORIDE 106 96 - 108 mmol/L [facility] CO2 26 21 - 35 mmol/L [facility] BUN 19 6 - 19 mg/dL [facility] CREATININE 1.10 0.5 - 1.5 mg/dL [facility] GLUCOSE 114(H) 70 - 99 mg/dL [facility] ALBUMIN 3.4(L) 3.9 - 4.8 g/dL [facility] TOTAL PROTEIN 5.8(L) 6.5 - 8.0 g/dL [facility] CALCIUM 8.4 8.4 - 10.3 mg/dL [facility] ALKALINE PHOSPHATASE 75 39 - 117 U/L [facility] TOTAL BILIRUBIN 0.8 0.0 - 1.2 mg/dL [facility] AST 15 0 - 37 U/L [facility] ALT 15 0 - 40 U/L [facility] GLOBULIN 2.4 1 - 4.8 g/dL [facility] EGFR 73 >59 mL/min/1.7 3m2 [facility] Comment:Estimated glomerular filtration rate calculated using the CKD-EPI refit equation. ANION GAP 12 10 - 20 mmol/L [facility] Blood 01/12/2025 6:12 AM EDT 01/12/2025 6:34 AM EDT us Melquiades Solares MD LAB BLOOD BKR ORDERABLES Final Result [facility] [address] [place] [address] * CT ABDOMEN/PELVIS WITHOUT CONTRAST [...] clinician's provided indication for this examination in [facility]: * Flank pain, kidney stone suspected [...] clinician's provided indication for this examination in [facility]: *Flank pain, kidney stone suspected TECHNIQUE: [...] Most Recently Relevant to Health Maintenance [place] [address] [place] [address] MEDICARE A MEDICARE A MEDICARE A MEDICARE A MEDICARE A [facility] MEDICARE A Advance Directives For more information, please contact: [phone] (9AM - 5PM [facility], Friday-Friday) * Full Code (Latest Code Status on File) Date Activated Date Inactivated Comments 01/12/2025 12:29 AM Question Answer Comments Code Status Confirmed With: Patient Code Status Communicated To: Inpatient Attending Care Teams Material Control Associate Relationship Specialty Start Date End Date Eric Bhakti Juares MD [address] [place] [address] [address] [place] [address] PCP - General Internal Medicine 07/11/23 Additional Source Comments The information contained in this document represents components of the legal health record. It is not the complete legal health record.[facility]
== END 2025-06-03 14:08 | disposition home or self-care (01) ==
LOC: HO.HUSH 11:50
PROVIDERS: PCP Internal Medicine; Visit Provider Urology
DX: N20.0 Calculus of kidney (principal); N40.2 Nodular prostate without lower urinary tract symptoms
CPT/HCPCS: 99213